=== PATIENT | male | born 1975 | race Caucasian/White ===

== ENCOUNTER 2016-10-17 10:03 | Emergency (ER) | payer OTHER ==
[~2016-10-17 10:03] MED LIST: /ESOM40CA OR; ALBU17IN INH; ALBU17IN2 IN; ALBU17IN2 INH; AMBI10TA PO; AMBI5TAB PO; AMMO12CR4 EX; BENZ200C44 PO; BUPR100T3 PO; BUPR15TA PO; CELE40TA PO; CITA20TA2 PO; CLON1TAB PO; EFFE37.527 PO; ERGO5000 PO; IBUP-1114 PO; IBUP80TA PO; KLON0.5T PO; KLON1TAB OR; KLON1TAB PO; KRIS20PA4 PO; LAMI25TA PO; MAGNSOL2 PO; MINI1CAP PO; MINIPRESS PO; MIRT30TA3 PO; MUCI600T34 PO; OMEP40CA2 PO; OXYC1TAB16 PO; OXYC1TAB23 PO; PERM5CR TOP; POLYETHYLENE GLYCOL PO; PRAZ2CAP PO; PRED20TA PO; PRIL20CA PO; PROC2.5C PR; REME30TA PO; RISP4TAB33 PO; SENN8.6C PO; SERT-141 PO; TOPA25TA PO; TOPA25TA10 PO; TRAM50TA2 PO; TRAZ50TA4 PO; TRIL300S PO; ULTR50TA PO; VALI5TAB PO; VIST25CA PO; VITA200028 PO; WELL100T PO; ZOLO100T PO; ZOLO50TA PO; ZYPR5TAB PO; ZYPR5TAB2 PO; ZYRT10TA2 PO; [UNRECOGNIZED DRUG - CODE] PO
[2016-10-17] MEDS ORDERED: GI COCKTAIL 50ML BTL(HYOSCYAMINE/MAALOX/LIDOCAINE VISCOUS)(1:3:1) As Ordered ONE (10:49)
[2016-10-17] MEDS ORDERED: diphenhydrAMINE INJ 50MG/ML VIAL (J1200) As Ordered ONE (10:50)
[2016-10-17] MEDS ORDERED: ONDANSETRON 4MG/2ML VIAL (J2405) As Ordered ONE (10:50)
[2016-10-17 11:07] LABS: BASO % 0.7 % (0.0-1.0); EOS # 0.2 K/mm3 (0.0-0.50); EOS % 3.3 % (0.0-3.0); LARGE UNSTAINED CELL # 0.1 K/mm3 (0.0-0.4); LARGE UNSTAINED CELL % 1.5 % (0.0-4.0); LYMPH # 1.1 K/mm3 (1.5-4.5); MEAN CORPUSCULAR HEMOGLOBIN 31.4 pg (27.0-33.0); MEAN CORPUSCULAR HGB CONC 35.6 g/dl (32.0-36.5); MEAN CORPUSCULAR VOLUME 88.2 fl (80.0-96.0); MONO # 0.4 K/mm3 (0.0-0.8); MONO % 5.7 % (0.0-5.0); NEUTROPHILS # 4.9 K/mm3 (1.8-7.7); NEUTROPHILS % 72.8 % (36.0-66.0); PLATELET COUNT, AUTOMATED 181 k/mm3 (150-450); RED CELL DISTRIBUTION WIDTH 12.8 % (11.5-14.5); WHITE BLOOD COUNT 6.7 K/mm3 (4.0-10.0)
--- NOTE | 2016-10-17 11:20 | REP ---
ABDOMEN, FLAT AND UPRIGHT, PA CHEST, THREE VIEWS: HISTORY: Abdominal pain. Air is present in small and large intestine. There are no air fluid levels or dilated loops of intestine. There is no pneumoperitoneum. The lungs are clear. IMPRESSION: Nonspecific bowel gas pattern. Signed by Raj Allison MD 10/17/2016 11:27 A
[2016-10-17 11:30] LABS: ALBUMIN 3.9 GM/DL (3.2-5.2); ALBUMIN/GLOBULIN RATIO 1.03 (1.00-1.93); ALKALINE PHOSPHATASE 96 U/L (45-117); ALT/SGPT 43 U/L (12-78); ANION GAP 10 MEQ/L (8-16); AST/SGOT 30 U/L (15-37); BILIRUBIN,DIRECT 0.2 MG/DL (0.0-0.2); BILIRUBIN,TOTAL 0.5 MG/DL (0.2-1.0); BLOOD UREA NITROGEN 16 MG/DL (7-18); CALCIUM LEVEL 9.1 MG/DL (8.5-10.1); CARBON DIOXIDE LEVEL 25 MEQ/L (21-32); CHLORIDE LEVEL 104 MEQ/L (98-107); CREATININE FOR GFR 1.07 MG/DL (0.70-1.30); GLOMERULAR FILTRATION RATE > 60.0 (>60); GLUCOSE, FASTING 148 MG/DL (70-105); POTASSIUM SERUM 4.1 MEQ/L (3.5-5.1); SODIUM LEVEL 139 MEQ/L (136-145); TOTAL PROTEIN 7.7 GM/DL (6.4-8.2)
--- NOTE | 2016-10-17 12:13 | EDDOCDS ---
Nurse's Notes [facility] Name: Link Goncalves Age: 41 yrs Sex: Male : 1975 Arrival Date: 10/17/2016 Time: 10:03 Bed I5 / M5 Private MD: Steven Veloz Diagnosis: Alcoholic gastritis Presentation: 10/17 10:10 Presenting complaint: Patient states: began drinking alcohol heavily for last 1 1/2 kr3 weeks. Had been sober ' for a long time'. Adult Sepsis Screening: The patient does not have new or worsening altered mentation. Patient's respiratory rate is less than 22. Systolic blood pressure is greater than 100. Patient has a qSOFA score of 0- Negative Sepsis Screen. Suicide/Homicide risk assessment- the patient denies having any suicidal and/or homicidal ideations and does not present with any other emotional, behavioral or mental health complaints. Status: Patient is not a food service attendant or dependent. Transition of care: patient was not received from another setting of care. 10:10 Acuity: SIMÓN Level 3 kr3 10:10 Method Of Arrival: Walkin/Carried/Asstd kr3 Triage Assessment: 10:12 General: Appears uncomfortable, Behavior is appropriate for age, cooperative. Pain: kr3 Location: abdomen Pain currently is 7 out of 10 on a pain scale. HIV screening NA for this visit Offered previously. GI: Reports nausea, vomiting, intolerance of food, intolerance of fluids. Derm: Skin is normal. Historical: - Allergies: Amoxicillin (Hives); Aspirin (Vomit); BACLOFEN (SOB); Coconut (Anaphylaxis); Erythromycin (Upset stomach); Latex (Hives); muscle relaxers (bad reaction); PENICILLINS (Rash); Strawberries (Hives); - Home Meds: 1. albuterol sulfate 90 mcg/actuation Inhl HFAA 1 puff every 6 hours as needed 2. Klonopin 0.5 mg Oral tab 1 tab 2 times per day has run out 3. Remeron Oral Unknown once daily ran out 4. Zoloft 100 mg Oral tab 1 tab once daily (Last dose: 10/17/2016) 5. Ambien Unknown Oral as needed (Last dose: 10/17/2016) 6. omeprazole 40 mg Oral cpDR 1 cap once daily (Last dose: 10/17/2016) - PMHx: Anxiety; bilateral leg fractures; Bipolar disorder; Chronic Back pain; Degenerative disc disease; Depression; Epilepsy; GERD; Hepatitis C; Irritable bowel syndrome; OCD; PTSD; right rib fractures; right wrist fracture; sternal fracture; TBI; - PSHx: back surgery; - Social history: Smoking status: Patient uses tobacco products, current every day smoker. Patient uses alcohol binge drinking for last 1 1/2 weeks. No barriers to communication noted, The patient speaks fluent Mongolian, Speaks appropriately for age. - Family history: Not pertinent. - : The pt / caregiver states he / she is not on anticoagulants. Home medication list is obtained from the patient. - Exposure Risk Screening:: None identified. Screenin:06 Infection Control. dem1 11:28 Screening information is obtained from the patient. Fall risk: No risks identified. ttb Assistance ADL's: requires no assistance with activities of daily living. Abuse/DV Screen: The patient / caregiver reports he/she is: not in a situation that causes fear, pain or injury. Nutritional screening: No deficits noted. Advance Directives: Currently, there is no health care proxy. home support is adequate. Assessment: 11:28 General: Appears in no apparent distress, well nourished, well groomed, Behavior is ttb appropriate for age, cooperative, pleasant, quiet. Pain: Location: generalized abd, bilat flanks. Neurological: Level of Consciousness is awake, alert. Cardiovascular: Heart tones S1 S2 present Chest pain is denied. Respiratory: No deficits noted. Airway is patent Respiratory effort is even, unlabored, Denies cough, shortness of breath. GI: Abdomen is obese, Bowel sounds hyperactive in right lower quadrant Abd is soft Abd is tender to palpation X 4 quads. Derm: Skin is normal, dry mucous membranes in nose, face dry, flaky. Injury Description: No known injury. 11:30 Adult Sepsis Screening: The patient does not have new or worsening altered mentation. ttb Patient's respiratory rate is less than 22. Systolic blood pressure is greater than 100. Patient has a qSOFA score of 0- Negative Sepsis Screen. 11:30 General: Appears in no apparent distress. Neurological: Level of Consciousness is ttb awake, alert. Cardiovascular: Chest pain is denied. Respiratory: No deficits noted. Airway is patent. 11:50 Reassessment: Patient appears in no apparent distress at this time. Patient states ttb feeling better. Patient states symptoms have improved. pt states he feels better and is ready for DC.. Vital Signs: 10:06 BP 159 / 93; Pulse 145; Resp 18; Temp 97.4; Pulse Ox 96% on R/A; Weight 106.14 kg (M); dem1 Height 5 ft. 8 in. (172.72 cm) (R); Pain 7/10; 11:23 BP 112 / 78; Pulse 104; Resp 18; Temp 97.2; Pulse Ox 94% on R/A; Pain 8/10; rn1 10:06 Body Mass Index 35.58 (106.14 kg, 172.72 cm) dem1 Vitals: 10:06 Log In Time: October 17, 2016 at 10:06. RN notified that patient meets Red Flag dem1 criteria. ED Course: 10:05 Patient visited by Rishabh Goss. dem1 10:05 Patient moved to Waiting dem1 10:06 Steven Veloz is Private Physician. dem1 10:10 Patient moved to Pre RCE dem1 10:10 Triage Initiated kr3 10:20 Patient moved to Triage 3 dsf 10:27 [facility] cc10 10:27 Akosua Lozoya MD is Attending Physician. cc10 10:27 Patient visited by Sergey Marshall PA-C. cc10 10:27 Patient visited by Sergey Marshall PA-C. cc10 10:41 Patient moved to PD2 / 27 dsf 11:01 Basic Metabolic Profile Sent. dsf 11:01 CBC with Diff Sent. dsf 11:02 Lipase Sent. dsf 11:02 Liver Profile Sent. dsf 11:02 Urinalysis Sent. dsf 11:02 Inserted saline lock: 18 gauge in left antecubital area The patient tolerated the dsf procedure well. 11:03 Patient moved to I5 / M5 dsf 11:19 [facility] [place] was scanned into [employer] and attached to record. mm15 11:28 The patient / caregiver is instructed regarding the plan of care and ED course. Patient ttb has correct armband on for positive identification. 11:28 No procedures done that require assistance. Labs drawn. (by ED staff). Urine collected. ttb Clean catch specimen. 11:30 Discontinued IV lock intact, bleeding controlled, pressure dressing applied, No ttb redness/swelling at site. 11:32 Patient visited by Alexa Wesley RN. ttb 11:51 Abdomen, Flat\E\Upright,PA Chest Returned. EDMS 12:01 Patient visited by Alexa Wesley RN. ttb 12:03 Steven Veloz is Referral Physician. cc10 Administered Medications: 11:01 Drug: diphenhydrAMINE 25 mg [diphenhydramine 50 mg/mL injection solution (0.5 mL)] dsf Route: IVP; Site: left antecubital; 12:12 Follow up: Response: No Adverse Reaction ttb 11:01 Drug: GI Cocktail - (Alum-Mag Hydroxide-Simeth Suspension 225 mg-200 mg-25 mg/5 mL 30 dsf ml, Lidocaine Liquid 2 % 10 ml, Hyoscyamine Liquid 10 ml) Route: PO; 11:02 Drug: NS 0.9% 1000 ml [sodium chloride 0.9 % injection solution] Route: IV; Rate: dsf bolus; Site: left antecubital; 12:12 Follow up: Response: No Adverse Reaction; IV Status: Completed infusion; IV Intake: ttb 1000ml 11:02 Drug: Ondansetron 4 mg [ondansetron HCl 2 mg/mL intravenous solution (2 mL)] Route: dsf IVP; Site: left antecubital; 11:50 Follow up: Response: Nausea is decreased; No Adverse Reaction ttb Intake: 12:12 IV: 1000.00ml; Total: 1000.00ml. ttb Order Results: Lab Order: Basic Metabolic Profile; SPEC'M 10/17/16 10:41 Test: GLUCOSE, FASTING; Value: 148; Range: 70-105; Abnormal: Above high normal; Units: MG/DL; Status: F Test: BLOOD UREA NITROGEN; Value: 16; Range: 7-18; Units: MG/DL; Status: F Test: CREATININE FOR GFR; Value: 1.07; Range: 0.70-1.30; Units: MG/DL; Status: F Test: GLOMERULAR FILTRATION RATE; Value: > 60.0; Range: >60; Status: F Test: SODIUM LEVEL; Value: 139; Range: 136-145; Units: MEQ/L; Status: F Test: POTASSIUM SERUM; Value: 4.1; Range: 3.5-5.1; Units: MEQ/L; Status: F Test: CHLORIDE LEVEL; Value: 104; Range: 98-107; Units: MEQ/L; Status: F Test: CARBON DIOXIDE LEVEL; Value: 25; Range: 21-32; Units: MEQ/L; Status: F Test: ANION GAP; Value: 10; Range: 8-16; Units: MEQ/L; Status: F Test: CALCIUM LEVEL; Value: 9.1; Range: 8.5-10.1; Units: MG/DL; Status: F Test Note: ; Units are mL/min/1.73 m2 Chronic Kidney Disease Staging per NKF: Stage I & II GFR >=60 Normal to Mildly Decreased Stage III GFR 30-59 Moderately Decreased Stage IV GFR 15-29 Severely Decreased Stage V GFR <15 Very Little GFR Left ESRD GFR <15 on OPTICAL LENS MANUFACTURING TECH Lab Order: CBC with Diff; SPEC'M 10/17/16 10:41 Test: WHITE BLOOD COUNT; Value: 6.7; Range: 4.0-10.0; Units: K/mm3; Status: F Test: RED BLOOD COUNT; Value: 5.97; Range: 4.30-6.10; Units: M/mm3; Status: F Test: HEMOGLOBIN; Value: 18.7; Range: 14.0-18.0; Abnormal: Above high normal; Units: g/dl; Status: F Test: HEMATOCRIT; Value: 52.7; Range: 42.0-52.0; Abnormal: Above high normal; Units: %; Status: F Test: MEAN CORPUSCULAR VOLUME; Value: 88.2; Range: 80.0-96.0; Units: fl; Status: F Test: MEAN CORPUSCULAR HEMOGLOBIN; Value: 31.4; Range: 27.0-33.0; Units: pg; Status: F Test: MEAN CORPUSCULAR HGB CONC; Value: 35.6; Range: 32.0-36.5; Units: g/dl; Status: F Test: RED CELL DISTRIBUTION WIDTH; Value: 12.8; Range: 11.5-14.5; Units: %; Status: F Test: PLATELET COUNT, AUTOMATED; Value: 181; Range: 150-450; Units: k/mm3; Status: F Test: NEUTROPHILS %; Value: 72.8; Range: 36.0-66.0; Abnormal: Above high normal; Units: %; Status: F Test: LYMPH %; Value: 16.0; Range: 24.0-44.0; Abnormal: Below low normal; Units: %; Status: F Test: MONO %; Value: 5.7; Range: 0.0-5.0; Abnormal: Above high normal; Units: %; Status: F Test: EOS %; Value: 3.3; Range: 0.0-3.0; Abnormal: Above high normal; Units: %; Status: F Test: BASO %; Value: 0.7; Range: 0.0-1.0; Units: %; Status: F Test: LARGE UNSTAINED CELL %; Value: 1.5; Range: 0.0-4.0; Units: %; Status: F Test: NEUTROPHILS #; Value: 4.9; Range: 1.8-7.7; Units: K/mm3; Status: F Test: LYMPH #; Value: 1.1; Range: 1.5-4.5; Abnormal: Below low normal; Units: K/mm3; Status: F Test: MONO #; Value: 0.4; Range: 0.0-0.8; Units: K/mm3; Status: F Test: EOS #; Value: 0.2; Range: 0.0-0.50; Units: K/mm3; Status: F Test: BASO #; Value: 0.0; Range: 0.0-0.2; Units: K/mm3; Status: F Test: LARGE UNSTAINED CELL #; Value: 0.1; Range: 0.0-0.4; Units: K/mm3; Status: F Lab Order: Lipase; SPEC'M 10/17/16 10:41 Test: LIPASE; Value: 183; Range: 73-393; Units: U/L; Status: F Lab Order: Liver Profile; SPEC'M 10/17/16 10:41 Test: AST/SGOT; Value: 30; Range: 15-37; Units: U/L; Status: F Test: ALT/SGPT; Value: 43; Range: 12-78; Units: U/L; Status: F Test: ALKALINE PHOSPHATASE; Value: 96; Range: 45-117; Units: U/L; Status: F Test: BILIRUBIN,TOTAL; Value: 0.5; Range: 0.2-1.0; Units: MG/DL; Status: F Test: BILIRUBIN,DIRECT; Value: 0.2; Range: 0.0-0.2; Units: MG/DL; Status: F Test: TOTAL PROTEIN; Value: 7.7; Range: 6.4-8.2; Units: GM/DL; Status: F Test: ALBUMIN; Value: 3.9; Range: 3.2-5.2; Units: GM/DL; Status: F Test: ALBUMIN/GLOBULIN RATIO; Value: 1.03; Range: 1.00-1.93; Status: F Lab Order: Urinalysis; SPEC'M 10/17/16 10:41 Test: APPEARANCE, URINE; Value: HAZY; Range: CLEAR; Status: F Test: COLOR, URINE; Value: SANDIP; Range: YELLOW; Status: F Test: PH,URINE; Value: 5.0; Range: 5.0-9.0; Units: UNITS; Status: F Test: SPECIFIC GRAVITY URINE AUTO; Value: 1.021; Range: 1.002-1.035; Status: F Test: PROTEIN, URINE AUTO; Value: 2+; Range: NEGATIVE; Abnormal: Above high normal; Units: mg/dL; Status: F Test: GLUCOSE, URINE (UA) AUTO; Value: NEGATIVE; Range: NEGATIVE; Units: mg/dL; Status: F Test: KETONE, URINE AUTO; Value: NEGATIVE; Range: NEGATIVE; Units: mg/dL; Status: F Test: UROBILINOGEN, URINE AUTO; Value: 2.0; Range: 0.0-2.0; Abnormal: Above high normal; Units: mg/dL; Status: F Test: BILIRUBIN, URINE AUTO; Value: NEGATIVE; Range: NEGATIVE; Status: F Test: NITRITE, URINE AUTO; Value: NEGATIVE; Range: NEGATIVE; Status: F Test: LEUKOCYTE ESTERASE, URINE AUTO; Value: NEGATIVE; Range: NEGATIVE; Status: F Test: BLOOD, URINE BLOOD; Value: NEGATIVE; Range: NEGATIVE; Status: F Test: WBC, URINE AUTO; Value: 11; Range: 0-3; Abnormal: Above high normal; Units: /HPF; Status: F Test: RBC, URINE AUTO; Value: 4; Range: 0-3; Abnormal: Above high normal; Units: /HPF; Status: F Test: BACTERIA, URINE AUTO; Value: 1+; Range: NEGATIVE; Abnormal: Above high normal; Status: F Test: SQUAMOUS EPITHELIAL CELL UR AU; Value: 0; Range: 0-6; Units: /HPF; Status: F Test: MUCUS, URINE; Value: SMALL; Range: NEGATIVE; Status: F Test: HYALINE CAST, URINE AUTO; Value: 0; Range: 0-1; Units: /LPF; Status: F Radiology Order: Abdomen, Flat\E\Upright,PA Chest Test: Abdomen, Flat\E\Upright,PA Chest REASON FOR EXAMINATION: Abdomen Pain; ABDOMEN, FLAT AND UPRIGHT, PA CHEST, THREE VIEWS:; ; HISTORY: Abdominal pain.; ; Air is present in small and large intestine. There are no air fluid levels or; dilated loops of intestine. There is no pneumoperitoneum. The lungs are clear.; ; ; IMPRESSION:; ; Nonspecific bowel gas pattern.; ; ; Signed by; Raj Allison MD 10/17/2016 11:27 A; Outcome: 11:30 Discharge Assessment: Patient awake, alert and oriented x 3. No cognitive and/or ttb functional deficits noted. Patient verbalized understanding of disposition instructions. Patient awake and alert. patient administered narcotics - no. The following High Risk Discharge criteria are identified: None. Discharged to home ambulatory. Condition: good Condition: stable Condition: improved. Discharge instructions given to patient, Instructed on discharge instructions, follow up and referral plans. medication usage, diet, Demonstrated understanding of instructions, medications, refrain from acidic foods, ETOH Pt was receptive of discharge instructions/ teaching. Prescriptions given X 1. No special radiology studies were completed. Property :Personal belongings accompany Pt. 12:04 Discharge ordered by Provider. cc10 12:13 Patient left the ED. ttb Signatures: Dispatcher [employer] EDMS Dolly El,RN RN byron3 Dione PayneRN RN arpitf Rishabh Goss Teresa, RN RN ttb Carolann Chaudhary mm15 Sergey Marshall, PA-C PA-C cc10 Navneet Zuluaga rn1 Corrections: (The following items were deleted from the chart) 12:12 11:28 CT Study completed. ttb ttb MTDD
--- NOTE | 2016-10-17 12:13 | EDDOCDS ---
Physician Documentation [facility] Name: Link Goncalves Age: 41 yrs Sex: Male : 1975 Arrival Date: 10/17/2016 Time: 10:03 Bed I5 / M5 Private MD: Steven Veloz Disposition: 10/17/16 12:04 Discharged to Home/Self Care. Impression: Alcoholic gastritis. - Condition is Stable. - Discharge Instructions: Gastritis, Adult. - Prescriptions for Carafate 1 gram Oral Tablet - take 1 tablet by ORAL route 4 times per day take on an empty stomach, beginning on waking and last dose at bedtime; 100 tablet. - Medication Reconciliation, Local Pharmacy Hours form. - Follow up: Emergency Department; When: As needed; Reason: Worsening of conditions. Follow up: Steven Veloz; When: Call to arrange an appointment; Reason: Wound/Symptom Recheck, Recheck today's complaints, Worsening of conditions, Continuance of care. - Problem is an acute exacerbation. - Symptoms have improved. - Notes: Follow up with your regular doctor for refill of your medications. thanks. Historical: - Allergies: Amoxicillin (Hives); Aspirin (Vomit); BACLOFEN (SOB); Coconut (Anaphylaxis); Erythromycin (Upset stomach); Latex (Hives); muscle relaxers (bad reaction); PENICILLINS (Rash); Strawberries (Hives); - Home Meds: 1. albuterol sulfate 90 mcg/actuation Inhl HFAA 1 puff every 6 hours as needed 2. Klonopin 0.5 mg Oral tab 1 tab 2 times per day has run out 3. Remeron Oral Unknown once daily ran out 4. Zoloft 100 mg Oral tab 1 tab once daily (Last dose: 10/17/2016) 5. Ambien Unknown Oral as needed (Last dose: 10/17/2016) 6. omeprazole 40 mg Oral cpDR 1 cap once daily (Last dose: 10/17/2016) - PMHx: Anxiety; bilateral leg fractures; Bipolar disorder; Chronic Back pain; Degenerative disc disease; Depression; Epilepsy; GERD; Hepatitis C; Irritable bowel syndrome; OCD; PTSD; right rib fractures; right wrist fracture; sternal fracture; TBI; - PSHx: back surgery; - Social history: Smoking status: Patient uses tobacco products, current every day smoker. Patient uses alcohol binge drinking for last 1 1/2 weeks. No barriers to communication noted, The patient speaks fluent Indonesian, Speaks appropriately for age. - Family history: Not pertinent. - : The pt / caregiver states he / she is not on anticoagulants. Home medication list is obtained from the patient. - Exposure Risk Screening:: None identified. Vital Signs: 10/17 10:06 BP 159 / 93; Pulse 145; Resp 18; Temp 97.4; Pulse Ox 96% on R/A; Weight 106.14 kg / 234 dem1 lbs (M); Height 5 ft. 8 in. (172.72 cm) (R); Pain 7/10; 11:23 BP 112 / 78; Pulse 104; Resp 18; Temp 97.2; Pulse Ox 94% on R/A; Pain 8/10; rn1 10:06 Body Mass Index 35.58 (106.14 kg, 172.72 cm) dem1 MDM: 10:31 NS 0.9% 1000 ml IV at bolus once ordered. cc10 10:32 Ondansetron 4 mg IVP once ordered. cc10 10:32 IV Saline Lock ordered. cc10 10:32 Undress patient appropriately for examination ordered. cc10 10:32 diphenhydrAMINE 25 mg IVP once ordered. cc10 10:32 GI Cocktail - (Alum-Mag Hydroxide-Simeth 30 ml, Lidocaine 10 ml, Hyoscyamine 10 ml) PO cc10 once; Pre-mixed 50mL unit dose ordered. 10:32 Basic Metabolic Profile Ordered. EDMS 10:32 CBC with Diff Ordered. EDMS 10:32 Lipase Ordered. EDMS 10:32 Liver Profile Ordered. EDMS 10:32 Urinalysis Ordered. EDMS 10:33 Abdomen, Flat\E\Upright,PA Chest Ordered. EDMS 10:33 NOTHING BY MOUTH+DIET ordered. EDMS 11:14 Financial registration complete. mm15 11:19 [facility] [place] was scanned into [employer] and attached to record. mm15 11:54 Basic Metabolic Profile Reviewed. cc10 11:54 CBC with Diff Reviewed. cc10 11:54 Urinalysis Reviewed. cc10 11:54 Lipase Reviewed. cc10 11:54 Liver Profile Reviewed. cc10 11:54 Abdomen, Flat\E\Upright,PA Chest Reviewed. cc10 11:56 Vital Signs ordered. cc10 Administered Medications: 11:01 Drug: diphenhydrAMINE 25 mg [diphenhydramine 50 mg/mL injection solution (0.5 mL)] dsf Route: IVP; Site: left antecubital; 12:12 Follow up: Response: No Adverse Reaction ttb 11:01 Drug: GI Cocktail - (Alum-Mag Hydroxide-Simeth Suspension 225 mg-200 mg-25 mg/5 mL 30 dsf ml, Lidocaine Liquid 2 % 10 ml, Hyoscyamine Liquid 10 ml) Route: PO; 11:02 Drug: NS 0.9% 1000 ml [sodium chloride 0.9 % injection solution] Route: IV; Rate: dsf bolus; Site: left antecubital; 12:12 Follow up: Response: No Adverse Reaction; IV Status: Completed infusion; IV Intake: ttb 1000ml 11:02 Drug: Ondansetron 4 mg [ondansetron HCl 2 mg/mL intravenous solution (2 mL)] Route: dsf IVP; Site: left antecubital; 11:50 Follow up: Response: Nausea is decreased; No Adverse Reaction ttb Signatures: Dispatcher [employer] EDMS Dolly ElRN RN kr3 Alexa Wesley RN RN ttb Carolann Chaudhary mm15 Sergey Marshall PA-C PA-C cc10 Dione Payne RN dsf The chart was reviewed and I authenticate all verbal orders and agree with the evaluation and treatment provided.Attachments: 11:19 [facility] Payment Agreement mm15 MTDD
--- NOTE | 2016-10-19 13:14 | EDDOCDS ---
Nurse's Notes [facility] Name: Link Goncalves Age: 41 yrs Sex: Male : 1975 Arrival Date: 10/17/2016 Time: 10:03 Bed I5 / M5 Private MD: Steven Veloz Diagnosis: Alcoholic gastritis Presentation: 10/17 10:10 Presenting complaint: Patient states: began drinking alcohol heavily for last 1 1/2 kr3 weeks. Had been sober ' for a long time'. Adult Sepsis Screening: The patient does not have new or worsening altered mentation. Patient's respiratory rate is less than 22. Systolic blood pressure is greater than 100. Patient has a qSOFA score of 0- Negative Sepsis Screen. Suicide/Homicide risk assessment- the patient denies having any suicidal and/or homicidal ideations and does not present with any other emotional, behavioral or mental health complaints. Status: Patient is not a career services assistant or dependent. Transition of care: patient was not received from another setting of care. 10:10 Acuity: SIMÓN Level 3 kr3 10:10 Method Of Arrival: Walkin/Carried/Asstd kr3 Triage Assessment: 10:12 General: Appears uncomfortable, Behavior is appropriate for age, cooperative. Pain: kr3 Location: abdomen Pain currently is 7 out of 10 on a pain scale. HIV screening NA for this visit Offered previously. GI: Reports nausea, vomiting, intolerance of food, intolerance of fluids. Derm: Skin is normal. Historical: - Allergies: Amoxicillin (Hives); Aspirin (Vomit); BACLOFEN (SOB); Coconut (Anaphylaxis); Erythromycin (Upset stomach); Latex (Hives); muscle relaxers (bad reaction); PENICILLINS (Rash); Strawberries (Hives); - Home Meds: 1. albuterol sulfate 90 mcg/actuation Inhl HFAA 1 puff every 6 hours as needed 2. Klonopin 0.5 mg Oral tab 1 tab 2 times per day has run out 3. Remeron Oral Unknown once daily ran out 4. Zoloft 100 mg Oral tab 1 tab once daily (Last dose: 10/17/2016) 5. Ambien Unknown Oral as needed (Last dose: 10/17/2016) 6. omeprazole 40 mg Oral cpDR 1 cap once daily (Last dose: 10/17/2016) - PMHx: Anxiety; bilateral leg fractures; Bipolar disorder; Chronic Back pain; Degenerative disc disease; Depression; Epilepsy; GERD; Hepatitis C; Irritable bowel syndrome; OCD; PTSD; right rib fractures; right wrist fracture; sternal fracture; TBI; - PSHx: back surgery; - Social history: Smoking status: Patient uses tobacco products, current every day smoker. Patient uses alcohol binge drinking for last 1 1/2 weeks. No barriers to communication noted, The patient speaks fluent Latvian, Speaks appropriately for age. - Family history: Not pertinent. - : The pt / caregiver states he / she is not on anticoagulants. Home medication list is obtained from the patient. - Exposure Risk Screening:: None identified. Screenin:06 Infection Control. dem1 11:28 Screening information is obtained from the patient. Fall risk: No risks identified. ttb Assistance ADL's: requires no assistance with activities of daily living. Abuse/DV Screen: The patient / caregiver reports he/she is: not in a situation that causes fear, pain or injury. Nutritional screening: No deficits noted. Advance Directives: Currently, there is no health care proxy. home support is adequate. Assessment: 11:28 General: Appears in no apparent distress, well nourished, well groomed, Behavior is ttb appropriate for age, cooperative, pleasant, quiet. Pain: Location: generalized abd, bilat flanks. Neurological: Level of Consciousness is awake, alert. Cardiovascular: Heart tones S1 S2 present Chest pain is denied. Respiratory: No deficits noted. Airway is patent Respiratory effort is even, unlabored, Denies cough, shortness of breath. GI: Abdomen is obese, Bowel sounds hyperactive in right lower quadrant Abd is soft Abd is tender to palpation X 4 quads. Derm: Skin is normal, dry mucous membranes in nose, face dry, flaky. Injury Description: No known injury. 11:30 Adult Sepsis Screening: The patient does not have new or worsening altered mentation. ttb Patient's respiratory rate is less than 22. Systolic blood pressure is greater than 100. Patient has a qSOFA score of 0- Negative Sepsis Screen. 11:30 General: Appears in no apparent distress. Neurological: Level of Consciousness is ttb awake, alert. Cardiovascular: Chest pain is denied. Respiratory: No deficits noted. Airway is patent. 11:50 Reassessment: Patient appears in no apparent distress at this time. Patient states ttb feeling better. Patient states symptoms have improved. pt states he feels better and is ready for DC.. Vital Signs: 10:06 BP 159 / 93; Pulse 145; Resp 18; Temp 97.4; Pulse Ox 96% on R/A; Weight 106.14 kg (M); dem1 Height 5 ft. 8 in. (172.72 cm) (R); Pain 7/10; 11:23 BP 112 / 78; Pulse 104; Resp 18; Temp 97.2; Pulse Ox 94% on R/A; Pain 8/10; rn1 10:06 Body Mass Index 35.58 (106.14 kg, 172.72 cm) dem1 Vitals: 10:06 Log In Time: October 17, 2016 at 10:06. RN notified that patient meets Red Flag dem1 criteria. ED Course: 10:05 Patient visited by Rishabh Goss. dem1 10:05 Patient moved to Waiting dem1 10:06 Steven Veloz is Private Physician. dem1 10:10 Patient moved to Pre RCE dem1 10:10 Triage Initiated kr3 10:20 Patient moved to Triage 3 dsf 10:27 Sergey Marshall PA-C [facility]. cc10 10:27 Akosua Lozoya MD is Attending Physician. cc10 10:27 Patient visited by Sergey Marshall PA-C. cc10 10:27 Patient visited by Sergey Marshall PA-C. cc10 10:41 Patient moved to PD2 / 27 dsf 11:01 Basic Metabolic Profile Sent. dsf 11:01 CBC with Diff Sent. dsf 11:02 Lipase Sent. dsf 11:02 Liver Profile Sent. dsf 11:02 Urinalysis Sent. dsf 11:02 Inserted saline lock: 18 gauge in left antecubital area The patient tolerated the dsf procedure well. 11:03 Patient moved to I5 / M5 dsf 11:19 [place] [place] was scanned into [employer] and attached to record. mm15 11:28 The patient / caregiver is instructed regarding the plan of care and ED course. Patient ttb has correct armband on for positive identification. 11:28 No procedures done that require assistance. Labs drawn. (by ED staff). Urine collected. ttb Clean catch specimen. 11:30 Discontinued IV lock intact, bleeding controlled, pressure dressing applied, No ttb redness/swelling at site. 11:32 Patient visited by Alexa Wesley RN. ttb 11:51 Abdomen, Flat\E\Upright,PA Chest Returned. EDMS 12:01 Patient visited by Alexa Wesley RN. ttb 12:03 Steven Veloz is Referral Physician. cc10 10/18 06:50 T-Sheet-- Draft Copy was scanned into [employer] and attached to record. gb Administered Medications: 10/17 11:01 Drug: diphenhydrAMINE 25 mg [diphenhydramine 50 mg/mL injection solution (0.5 mL)] dsf Route: IVP; Site: left antecubital; 12:12 Follow up: Response: No Adverse Reaction ttb 11:01 Drug: GI Cocktail - (Alum-Mag Hydroxide-Simeth Suspension 225 mg-200 mg-25 mg/5 mL 30 dsf ml, Lidocaine Liquid 2 % 10 ml, Hyoscyamine Liquid 10 ml) Route: PO; 11:02 Drug: NS 0.9% 1000 ml [sodium chloride 0.9 % injection solution] Route: IV; Rate: dsf bolus; Site: left antecubital; 12:12 Follow up: Response: No Adverse Reaction; IV Status: Completed infusion; IV Intake: ttb 1000ml 11:02 Drug: Ondansetron 4 mg [ondansetron HCl 2 mg/mL intravenous solution (2 mL)] Route: dsf IVP; Site: left antecubital; 11:50 Follow up: Response: Nausea is decreased; No Adverse Reaction ttb Intake: 12:12 IV: 1000.00ml; Total: 1000.00ml. ttb Order Results: Lab Order: Basic Metabolic Profile; SPEC'M 10/17/16 10:41 Test: GLUCOSE, FASTING; Value: 148; Range: 70-105; Abnormal: Above high normal; Units: MG/DL; Status: F Test: BLOOD UREA NITROGEN; Value: 16; Range: 7-18; Units: MG/DL; Status: F Test: CREATININE FOR GFR; Value: 1.07; Range: 0.70-1.30; Units: MG/DL; Status: F Test: GLOMERULAR FILTRATION RATE; Value: > 60.0; Range: >60; Status: F Test: SODIUM LEVEL; Value: 139; Range: 136-145; Units: MEQ/L; Status: F Test: POTASSIUM SERUM; Value: 4.1; Range: 3.5-5.1; Units: MEQ/L; Status: F Test: CHLORIDE LEVEL; Value: 104; Range: 98-107; Units: MEQ/L; Status: F Test: CARBON DIOXIDE LEVEL; Value: 25; Range: 21-32; Units: MEQ/L; Status: F Test: ANION GAP; Value: 10; Range: 8-16; Units: MEQ/L; Status: F Test: CALCIUM LEVEL; Value: 9.1; Range: 8.5-10.1; Units: MG/DL; Status: F Test Note: ; Units are mL/min/1.73 m2 Chronic Kidney Disease Staging per NKF: Stage I & II GFR >=60 Normal to Mildly Decreased Stage III GFR 30-59 Moderately Decreased Stage IV GFR 15-29 Severely Decreased Stage V GFR <15 Very Little GFR Left ESRD GFR <15 on [facility] Lab Order: CBC with Diff; SPEC'M 10/17/16 10:41 Test: WHITE BLOOD COUNT; Value: 6.7; Range: 4.0-10.0; Units: K/mm3; Status: F Test: RED BLOOD COUNT; Value: 5.97; Range: 4.30-6.10; Units: M/mm3; Status: F Test: HEMOGLOBIN; Value: 18.7; Range: 14.0-18.0; Abnormal: Above high normal; Units: g/dl; Status: F Test: HEMATOCRIT; Value: 52.7; Range: 42.0-52.0; Abnormal: Above high normal; Units: %; Status: F Test: MEAN CORPUSCULAR VOLUME; Value: 88.2; Range: 80.0-96.0; Units: fl; Status: F Test: MEAN CORPUSCULAR HEMOGLOBIN; Value: 31.4; Range: 27.0-33.0; Units: pg; Status: F Test: MEAN CORPUSCULAR HGB CONC; Value: 35.6; Range: 32.0-36.5; Units: g/dl; Status: F Test: RED CELL DISTRIBUTION WIDTH; Value: 12.8; Range: 11.5-14.5; Units: %; Status: F Test: PLATELET COUNT, AUTOMATED; Value: 181; Range: 150-450; Units: k/mm3; Status: F Test: NEUTROPHILS %; Value: 72.8; Range: 36.0-66.0; Abnormal: Above high normal; Units: %; Status: F Test: LYMPH %; Value: 16.0; Range: 24.0-44.0; Abnormal: Below low normal; Units: %; Status: F Test: MONO %; Value: 5.7; Range: 0.0-5.0; Abnormal: Above high normal; Units: %; Status: F Test: EOS %; Value: 3.3; Range: 0.0-3.0; Abnormal: Above high normal; Units: %; Status: F Test: BASO %; Value: 0.7; Range: 0.0-1.0; Units: %; Status: F Test: LARGE UNSTAINED CELL %; Value: 1.5; Range: 0.0-4.0; Units: %; Status: F Test: NEUTROPHILS #; Value: 4.9; Range: 1.8-7.7; Units: K/mm3; Status: F Test: LYMPH #; Value: 1.1; Range: 1.5-4.5; Abnormal: Below low normal; Units: K/mm3; Status: F Test: MONO #; Value: 0.4; Range: 0.0-0.8; Units: K/mm3; Status: F Test: EOS #; Value: 0.2; Range: 0.0-0.50; Units: K/mm3; Status: F Test: BASO #; Value: 0.0; Range: 0.0-0.2; Units: K/mm3; Status: F Test: LARGE UNSTAINED CELL #; Value: 0.1; Range: 0.0-0.4; Units: K/mm3; Status: F Lab Order: Lipase; SPEC'M 10/17/16 10:41 Test: LIPASE; Value: 183; Range: 73-393; Units: U/L; Status: F Lab Order: Liver Profile; SPEC'M 10/17/16 10:41 Test: AST/SGOT; Value: 30; Range: 15-37; Units: U/L; Status: F Test: ALT/SGPT; Value: 43; Range: 12-78; Units: U/L; Status: F Test: ALKALINE PHOSPHATASE; Value: 96; Range: 45-117; Units: U/L; Status: F Test: BILIRUBIN,TOTAL; Value: 0.5; Range: 0.2-1.0; Units: MG/DL; Status: F Test: BILIRUBIN,DIRECT; Value: 0.2; Range: 0.0-0.2; Units: MG/DL; Status: F Test: TOTAL PROTEIN; Value: 7.7; Range: 6.4-8.2; Units: GM/DL; Status: F Test: ALBUMIN; Value: 3.9; Range: 3.2-5.2; Units: GM/DL; Status: F Test: ALBUMIN/GLOBULIN RATIO; Value: 1.03; Range: 1.00-1.93; Status: F Lab Order: Urinalysis; SPEC'M 10/17/16 10:41 Test: APPEARANCE, URINE; Value: HAZY; Range: CLEAR; Status: F Test: COLOR, URINE; Value: SANDIP; Range: YELLOW; Status: F Test: PH,URINE; Value: 5.0; Range: 5.0-9.0; Units: UNITS; Status: F Test: SPECIFIC GRAVITY URINE AUTO; Value: 1.021; Range: 1.002-1.035; Status: F Test: PROTEIN, URINE AUTO; Value: 2+; Range: NEGATIVE; Abnormal: Above high normal; Units: mg/dL; Status: F Test: GLUCOSE, URINE (UA) AUTO; Value: NEGATIVE; Range: NEGATIVE; Units: mg/dL; Status: F Test: KETONE, URINE AUTO; Value: NEGATIVE; Range: NEGATIVE; Units: mg/dL; Status: F Test: UROBILINOGEN, URINE AUTO; Value: 2.0; Range: 0.0-2.0; Abnormal: Above high normal; Units: mg/dL; Status: F Test: BILIRUBIN, URINE AUTO; Value: NEGATIVE; Range: NEGATIVE; Status: F Test: NITRITE, URINE AUTO; Value: NEGATIVE; Range: NEGATIVE; Status: F Test: LEUKOCYTE ESTERASE, URINE AUTO; Value: NEGATIVE; Range: NEGATIVE; Status: F Test: BLOOD, URINE BLOOD; Value: NEGATIVE; Range: NEGATIVE; Status: F Test: WBC, URINE AUTO; Value: 11; Range: 0-3; Abnormal: Above high normal; Units: /HPF; Status: F Test: RBC, URINE AUTO; Value: 4; Range: 0-3; Abnormal: Above high normal; Units: /HPF; Status: F Test: BACTERIA, URINE AUTO; Value: 1+; Range: NEGATIVE; Abnormal: Above high normal; Status: F Test: SQUAMOUS EPITHELIAL CELL UR AU; Value: 0; Range: 0-6; Units: /HPF; Status: F Test: MUCUS, URINE; Value: SMALL; Range: NEGATIVE; Status: F Test: HYALINE CAST, URINE AUTO; Value: 0; Range: 0-1; Units: /LPF; Status: F Radiology Order: Abdomen, Flat\E\Upright,PA Chest Test: Abdomen, Flat\E\Upright,PA Chest REASON FOR EXAMINATION: Abdomen Pain; ABDOMEN, FLAT AND UPRIGHT, PA CHEST, THREE VIEWS:; ; HISTORY: Abdominal pain.; ; Air is present in small and large intestine. There are no air fluid levels or; dilated loops of intestine. There is no pneumoperitoneum. The lungs are clear.; ; ; IMPRESSION:; ; Nonspecific bowel gas pattern.; ; ; Signed by; Raj Allison MD 10/17/2016 11:27 A; Outcome: 11:30 Discharge Assessment: Patient awake, alert and oriented x 3. No cognitive and/or ttb functional deficits noted. Patient verbalized understanding of disposition instructions. Patient awake and alert. patient administered narcotics - no. The following High Risk Discharge criteria are identified: None. Discharged to home ambulatory. Condition: good Condition: stable Condition: improved. Discharge instructions given to patient, Instructed on discharge instructions, follow up and referral plans. medication usage, diet, Demonstrated understanding of instructions, medications, refrain from acidic foods, ETOH Pt was receptive of discharge instructions/ teaching. Prescriptions given X 1. No special radiology studies were completed. Property :Personal belongings accompany Pt. 12:04 Discharge ordered by Provider. cc10 12:13 Patient left the ED. ttb Signatures: Dispatcher [employer] EDMS Susan Munoz, Dolly Lawrence RN RN byron3 Dione Payne RN RN Rishabh [place], RN RN ttb Carolann Chaudhary mm15 Sergey Marshall PAWillowC PA-C cc10 Navneet Zuluaga rn1 Corrections: (The following items were deleted from the chart) 12:12 11:28 CT Study completed. ttabimbola ttb Chart Complete MTDD
--- NOTE | 2016-10-19 13:14 | EDDOCDS ---
Physician Documentation [facility] Name: Link Goncalves Age: 41 yrs Sex: Male : 1975 Arrival Date: 10/17/2016 Time: 10:03 Bed I5 / M5 Private MD: Steven Veloz Disposition: 10/17/16 12:04 Discharged to Home/Self Care. Impression: Alcoholic gastritis. - Condition is Stable. - Discharge Instructions: Gastritis, Adult. - Prescriptions for Carafate 1 gram Oral Tablet - take 1 tablet by ORAL route 4 times per day take on an empty stomach, beginning on waking and last dose at bedtime; 100 tablet. - Medication Reconciliation, Local Pharmacy Hours form. - Follow up: Emergency Department; When: As needed; Reason: Worsening of conditions. Follow up: Steven Veloz; When: Call to arrange an appointment; Reason: Wound/Symptom Recheck, Recheck today's complaints, Worsening of conditions, Continuance of care. - Problem is an acute exacerbation. - Symptoms have improved. - Notes: Follow up with your regular doctor for refill of your medications. thanks. Historical: - Allergies: Amoxicillin (Hives); Aspirin (Vomit); BACLOFEN (SOB); Coconut (Anaphylaxis); Erythromycin (Upset stomach); Latex (Hives); muscle relaxers (bad reaction); PENICILLINS (Rash); Strawberries (Hives); - Home Meds: 1. albuterol sulfate 90 mcg/actuation Inhl HFAA 1 puff every 6 hours as needed 2. Klonopin 0.5 mg Oral tab 1 tab 2 times per day has run out 3. Remeron Oral Unknown once daily ran out 4. Zoloft 100 mg Oral tab 1 tab once daily (Last dose: 10/17/2016) 5. Ambien Unknown Oral as needed (Last dose: 10/17/2016) 6. omeprazole 40 mg Oral cpDR 1 cap once daily (Last dose: 10/17/2016) - PMHx: Anxiety; bilateral leg fractures; Bipolar disorder; Chronic Back pain; Degenerative disc disease; Depression; Epilepsy; GERD; Hepatitis C; Irritable bowel syndrome; OCD; PTSD; right rib fractures; right wrist fracture; sternal fracture; TBI; - PSHx: back surgery; - Social history: Smoking status: Patient uses tobacco products, current every day smoker. Patient uses alcohol binge drinking for last 1 1/2 weeks. No barriers to communication noted, The patient speaks fluent Macedonian, Speaks appropriately for age. - Family history: Not pertinent. - : The pt / caregiver states he / she is not on anticoagulants. Home medication list is obtained from the patient. - Exposure Risk Screening:: None identified. Vital Signs: 10/17 10:06 BP 159 / 93; Pulse 145; Resp 18; Temp 97.4; Pulse Ox 96% on R/A; Weight 106.14 kg / 234 dem1 lbs (M); Height 5 ft. 8 in. (172.72 cm) (R); Pain 7/10; 11:23 BP 112 / 78; Pulse 104; Resp 18; Temp 97.2; Pulse Ox 94% on R/A; Pain 8/10; rn1 10:06 Body Mass Index 35.58 (106.14 kg, 172.72 cm) dem1 MDM: 10:31 NS 0.9% 1000 ml IV at bolus once ordered. cc10 10:32 Ondansetron 4 mg IVP once ordered. cc10 10:32 IV Saline Lock ordered. cc10 10:32 Undress patient appropriately for examination ordered. cc10 10:32 diphenhydrAMINE 25 mg IVP once ordered. cc10 10:32 GI Cocktail - (Alum-Mag Hydroxide-Simeth 30 ml, Lidocaine 10 ml, Hyoscyamine 10 ml) PO cc10 once; Pre-mixed 50mL unit dose ordered. 10:32 Basic Metabolic Profile Ordered. EDMS 10:32 CBC with Diff Ordered. EDMS 10:32 Lipase Ordered. EDMS 10:32 Liver Profile Ordered. EDMS 10:32 Urinalysis Ordered. EDMS 10:33 Abdomen, Flat\E\Upright,PA Chest Ordered. EDMS 10:33 NOTHING BY MOUTH+DIET ordered. EDMS 11:14 Financial registration complete. mm15 11:19 [place] [place] Agreement was scanned into [employer] and attached to record. mm15 11:54 Basic Metabolic Profile Reviewed. cc10 11:54 CBC with Diff Reviewed. cc10 11:54 Urinalysis Reviewed. cc10 11:54 Lipase Reviewed. cc10 11:54 Liver Profile Reviewed. cc10 11:54 Abdomen, Flat\E\Upright,PA Chest Reviewed. cc10 11:56 Vital Signs ordered. cc10 10/18 06:50 T-Sheet-- Draft Copy was scanned into [employer] and attached to record. gb Administered Medications: 10/17 11:01 Drug: diphenhydrAMINE 25 mg [diphenhydramine 50 mg/mL injection solution (0.5 mL)] dsf Route: IVP; Site: left antecubital; 12:12 Follow up: Response: No Adverse Reaction ttb 11:01 Drug: GI Cocktail - (Alum-Mag Hydroxide-Simeth Suspension 225 mg-200 mg-25 mg/5 mL 30 dsf ml, Lidocaine Liquid 2 % 10 ml, Hyoscyamine Liquid 10 ml) Route: PO; 11:02 Drug: NS 0.9% 1000 ml [sodium chloride 0.9 % injection solution] Route: IV; Rate: dsf bolus; Site: left antecubital; 12:12 Follow up: Response: No Adverse Reaction; IV Status: Completed infusion; IV Intake: ttb 1000ml 11:02 Drug: Ondansetron 4 mg [ondansetron HCl 2 mg/mL intravenous solution (2 mL)] Route: dsf IVP; Site: left antecubital; 11:50 Follow up: Response: Nausea is decreased; No Adverse Reaction ttb Signatures: Dispatcher [employer] EDMS Susan Munoz Reg Reg gb Robie, Kathleen,JULIO RN kr3 Alexa Wesley RN RN ttb Carolann Chaudhary mm15 Sergey Marshall PA-C PA-C cc10 Dione Payne RN dsf The chart was reviewed and I authenticate all verbal orders and agree with the evaluation and treatment provided.Attachments: : [facility] Payment Agreement mm15 10/18 06:50 T-Sheet-- Draft Copy gb Chart Complete MTDD
--- NOTE | 2016-10-19 13:14 | EDDOCDS ---
Physician Documentation [facility] Name: Link Goncalves Age: 41 yrs Sex: Male : 1975 Arrival Date: 10/17/2016 Time: 10:03 Bed I5 / M5 Private MD: Steven Veloz Disposition: 10/17/16 12:04 Discharged to Home/Self Care. Impression: Alcoholic gastritis. - Condition is Stable. - Discharge Instructions: Gastritis, Adult. - Prescriptions for Carafate 1 gram Oral Tablet - take 1 tablet by ORAL route 4 times per day take on an empty stomach, beginning on waking and last dose at bedtime; 100 tablet. - Medication Reconciliation, Local Pharmacy Hours form. - Follow up: Emergency Department; When: As needed; Reason: Worsening of conditions. Follow up: Steven Veloz; When: Call to arrange an appointment; Reason: Wound/Symptom Recheck, Recheck today's complaints, Worsening of conditions, Continuance of care. - Problem is an acute exacerbation. - Symptoms have improved. - Notes: Follow up with your regular doctor for refill of your medications. thanks. Historical: - Allergies: Amoxicillin (Hives); Aspirin (Vomit); BACLOFEN (SOB); Coconut (Anaphylaxis); Erythromycin (Upset stomach); Latex (Hives); muscle relaxers (bad reaction); PENICILLINS (Rash); Strawberries (Hives); - Home Meds: 1. albuterol sulfate 90 mcg/actuation Inhl HFAA 1 puff every 6 hours as needed 2. Klonopin 0.5 mg Oral tab 1 tab 2 times per day has run out 3. Remeron Oral Unknown once daily ran out 4. Zoloft 100 mg Oral tab 1 tab once daily (Last dose: 10/17/2016) 5. Ambien Unknown Oral as needed (Last dose: 10/17/2016) 6. omeprazole 40 mg Oral cpDR 1 cap once daily (Last dose: 10/17/2016) - PMHx: Anxiety; bilateral leg fractures; Bipolar disorder; Chronic Back pain; Degenerative disc disease; Depression; Epilepsy; GERD; Hepatitis C; Irritable bowel syndrome; OCD; PTSD; right rib fractures; right wrist fracture; sternal fracture; TBI; - PSHx: back surgery; - Social history: Smoking status: Patient uses tobacco products, current every day smoker. Patient uses alcohol binge drinking for last 1 1/2 weeks. No barriers to communication noted, The patient speaks fluent Ukrainian, Speaks appropriately for age. - Family history: Not pertinent. - : The pt / caregiver states he / she is not on anticoagulants. Home medication list is obtained from the patient. - Exposure Risk Screening:: None identified. Vital Signs: 10/17 10:06 BP 159 / 93; Pulse 145; Resp 18; Temp 97.4; Pulse Ox 96% on R/A; Weight 106.14 kg / 234 dem1 lbs (M); Height 5 ft. 8 in. (172.72 cm) (R); Pain 7/10; 11:23 BP 112 / 78; Pulse 104; Resp 18; Temp 97.2; Pulse Ox 94% on R/A; Pain 8/10; rn1 10:06 Body Mass Index 35.58 (106.14 kg, 172.72 cm) dem1 MDM: 10:31 NS 0.9% 1000 ml IV at bolus once ordered. cc10 10:32 Ondansetron 4 mg IVP once ordered. cc10 10:32 IV Saline Lock ordered. cc10 10:32 Undress patient appropriately for examination ordered. cc10 10:32 diphenhydrAMINE 25 mg IVP once ordered. cc10 10:32 GI Cocktail - (Alum-Mag Hydroxide-Simeth 30 ml, Lidocaine 10 ml, Hyoscyamine 10 ml) PO cc10 once; Pre-mixed 50mL unit dose ordered. 10:32 Basic Metabolic Profile Ordered. EDMS 10:32 CBC with Diff Ordered. EDMS 10:32 Lipase Ordered. EDMS 10:32 Liver Profile Ordered. EDMS 10:32 Urinalysis Ordered. EDMS 10:33 Abdomen, Flat\E\Upright,PA Chest Ordered. EDMS 10:33 NOTHING BY MOUTH+DIET ordered. EDMS 11:14 Financial registration complete. mm15 11:19 [facility] [place] was scanned into [employer] and attached to record. mm15 11:54 Basic Metabolic Profile Reviewed. cc10 11:54 CBC with Diff Reviewed. cc10 11:54 Urinalysis Reviewed. cc10 11:54 Lipase Reviewed. cc10 11:54 Liver Profile Reviewed. cc10 11:54 Abdomen, Flat\E\Upright,PA Chest Reviewed. cc10 11:56 Vital Signs ordered. cc10 10/18 06:50 T-Sheet-- Draft Copy was scanned into [employer] and attached to record. gb Administered Medications: 10/17 11:01 Drug: diphenhydrAMINE 25 mg [diphenhydramine 50 mg/mL injection solution (0.5 mL)] dsf Route: IVP; Site: left antecubital; 12:12 Follow up: Response: No Adverse Reaction ttb 11:01 Drug: GI Cocktail - (Alum-Mag Hydroxide-Simeth Suspension 225 mg-200 mg-25 mg/5 mL 30 dsf ml, Lidocaine Liquid 2 % 10 ml, Hyoscyamine Liquid 10 ml) Route: PO; 11:02 Drug: NS 0.9% 1000 ml [sodium chloride 0.9 % injection solution] Route: IV; Rate: dsf bolus; Site: left antecubital; 12:12 Follow up: Response: No Adverse Reaction; IV Status: Completed infusion; IV Intake: ttb 1000ml 11:02 Drug: Ondansetron 4 mg [ondansetron HCl 2 mg/mL intravenous solution (2 mL)] Route: dsf IVP; Site: left antecubital; 11:50 Follow up: Response: Nausea is decreased; No Adverse Reaction ttb Signatures: Dispatcher [employer] EDMS Susan Munoz Reg Reg gb Robie, Kathleen,JULIO RN kr3 Alexa Wesley RN RN ttb Carolann Chaudhary mm15 Sergey Marshall PA-C PA-C cc10 Dione Payne RN dsf The chart was reviewed and I authenticate all verbal orders and agree with the evaluation and treatment provided.Attachments: : [facility] Payment Agreement mm15 10/18 06:50 T-Sheet-- Draft Copy gb Chart Complete MTDD
== END 2016-10-17 12:13 | disposition home or self-care (01) ==
LOC: M ED 10:03
DX: K29.20 Alcoholic gastritis without bleeding (principal); K58.9 Irritable bowel syndrome, unspecified; F41.9 Anxiety disorder, unspecified; F31.9 Bipolar disorder, unspecified; G89.29 Other chronic pain; M51.36 Other intervertebral disc degeneration, lumbar region; G40.909 Epilepsy, unspecified, not intractable, without status epilepticus; K21.9 Gastro-esophageal reflux disease without esophagitis; B19.20 Unspecified viral hepatitis C without hepatic coma; F42.9 Obsessive-compulsive disorder, unspecified; F43.10 Post-traumatic stress disorder, unspecified; Z87.820 Personal history of traumatic brain injury; Z87.81 Personal history of (healed) traumatic fracture; Z72.0 Tobacco use; Z79.899 Other long term (current) drug therapy; Z88.0 Allergy status to penicillin; Z88.1 Allergy status to other antibiotic agents; Z88.6 Allergy status to analgesic agent; Z88.8 Allergy status to other drugs, medicaments and biological substances; Z91.040 Latex allergy status; Z91.018 Allergy to other foods
CPT/HCPCS: 36415; 74022; 80048; 80076; 81001; 83690; 85025; 96361; 96374; 96375; 99284; J1200; J2405

== ENCOUNTER 2016-10-19 11:28 | Emergency (ER) | payer OTHER ==
[2016-10-19] MEDS ORDERED: diphenhydrAMINE INJ 50MG/ML VIAL (J1200) As Ordered ONE (11:59)
[2016-10-19] MEDS ORDERED: METOCLOPRAMIDE INJ 10MG/2ML VIAL (J2765) As Ordered ONE (11:59)
[2016-10-19] MEDS ORDERED: GASTROGRAFIN SOLUTION 30ML (Q9963) As Ordered ONE (12:06)
[2016-10-19 12:37] LABS: ALBUMIN 4.3 GM/DL (3.2-5.2); ALBUMIN/GLOBULIN RATIO 1.02 (1.00-1.93); ALKALINE PHOSPHATASE 98 U/L (45-117); ALT/SGPT 50 U/L (12-78); AMYLASE 66 U/L (25-115); ANION GAP 10 MEQ/L (8-16); AST/SGOT 37 U/L (15-37); BILIRUBIN,DIRECT 0.3 MG/DL (0.0-0.2); BILIRUBIN,TOTAL 0.7 MG/DL (0.2-1.0); BLOOD UREA NITROGEN 17 MG/DL (7-18); CALCIUM LEVEL 9.3 MG/DL (8.5-10.1); CARBON DIOXIDE LEVEL 28 MEQ/L (21-32); CHLORIDE LEVEL 100 MEQ/L (98-107); CREATININE FOR GFR 1.08 MG/DL (0.70-1.30); GLOMERULAR FILTRATION RATE > 60.0 (>60); GLUCOSE, FASTING 117 MG/DL (70-105); SODIUM LEVEL 138 MEQ/L (136-145); TOTAL PROTEIN 8.5 GM/DL (6.4-8.2)
--- NOTE | 2016-10-19 12:55 | REP ---
Chest x-ray: Two views. History: Chest pain. . Comparison study: October 17, 2016 . Findings: The lungs are well inflated and free of infiltrate. The pleural angles are sharp. The heart size is normal. Pulmonary vasculature is not increased. No significant bony abnormality is seen. Impression: Negative chest x-ray. Signed by Moses Georges MD 10/19/2016 12:46 P
[2016-10-19 12:58] LABS: MEAN CORPUSCULAR VOLUME 90.4 fl (80.0-96.0); WHITE BLOOD COUNT 9.7 K/mm3 (4.0-10.0)
[2016-10-19 12:59] LABS: BASO # 0.1 K/mm3 (0.0-0.2); BASO % 1.3 % (0.0-1.0); DIFF SLIDE NUMBER 151; EOS # 0.1 K/mm3 (0.0-0.50); EOS % 1.3 % (0.0-3.0); LARGE UNSTAINED CELL # 0.1 K/mm3 (0.0-0.4); LARGE UNSTAINED CELL % 1.3 % (0.0-4.0); LYMPH % 9.9 % (24.0-44.0); MEAN CORPUSCULAR HEMOGLOBIN 31.3 pg (27.0-33.0); MEAN CORPUSCULAR HGB CONC 34.6 g/dl (32.0-36.5); MONO # 0.6 K/mm3 (0.0-0.8); MONO % 5.9 % (0.0-5.0); NEUTROPHILS # 7.7 K/mm3 (1.8-7.7); NEUTROPHILS % 80.1 % (36.0-66.0); PLATELET COUNT, AUTOMATED 189 k/mm3 (150-450); RED CELL DISTRIBUTION WIDTH 13.8 % (11.5-14.5)
[2016-10-19] MEDS ORDERED: ISOVUE-370 76% 100ML VIAL (Q9967) As Ordered ONE (13:42)
[2016-10-19 13:46] LABS: AMPHETAMINES LEVEL URINE NEGATIVE (NEGATIVE); BENZODIAZEPINES URINE NEGATIVE (NEGATIVE); COCAINE METABOLITE URINE NEGATIVE (NEGATIVE); CONTROL LINE INT CTR LINE PRESENT; METHADONE URINE NEGATIVE (NEGATIVE); OPIATES URINE NEGATIVE (NEGATIVE); TRICYCLIC ANTIDEPRESS URINE POSITIVE (NEGATIVE)
--- NOTE | 2016-10-19 15:29 | EDDOCDS ---
Physician Documentation [facility] Name: Link Goncalves Age: 41 yrs Sex: Male : 1975 Arrival Date: 10/19/2016 Time: 11:28 Bed I5 / M5 Private MD: Steven Veloz D Disposition: 10/19/16 15:21 Discharged to Home/Self Care. Impression: Epigastric pain, Generalized abdominal pain. - Condition is Stable. - Discharge Instructions: Abdominal Pain, Adult, Gastritis, Adult, Erpu-do-Pwen. - Prescriptions for Carafate 1 gram Oral Tablet - take 2 tablet by ORAL route every 12 hours take on an empty stomach, beginning on waking and last dose at bedtime; 100 tablet. - Medication Reconciliation, Local Pharmacy Hours form. - Follow up: Steven Veloz; When: 2 - 3 days; Reason: Further diagnostic work-up, Recheck today's complaints, Continuance of care. - Problem is an ongoing problem. - Symptoms are unchanged. Historical: - Allergies: Amoxicillin (Hives); Aspirin (Vomit); BACLOFEN (SOB); Coconut (Anaphylaxis); Erythromycin (Upset stomach); Latex (Hives); muscle relaxers (bad reaction); PENICILLINS (Rash); Strawberries (Hives); - Home Meds: 1. albuterol sulfate 90 mcg/actuation Inhl HFAA 1 puff every 6 hours as needed (Last dose: Unknown) 2. Klonopin 0.5 mg Oral tab 1 tab 2 times per day has run out 5 days ago 3. Zoloft 100 mg Oral tab 1 tab once daily (Last dose: 10/19/2016 08:00) 4. omeprazole 40 mg Oral cpDR 1 cap once daily (Last dose: 10/19/2016 08:00) 5. Remeron Oral Unknown once daily ran out 1 week ago 6. Ambien Unknown Oral Has been taking 2-3 times daily so "I can rest" - PMHx: Anxiety; Bipolar disorder; Chronic Back pain; Degenerative disc disease; Depression; Epilepsy; GERD; Hepatitis C; OCD; PTSD; TBI; Irritable bowel syndrome; sternal fracture; right wrist fracture; right rib fractures; bilateral leg fractures; - PSHx: back surgery; - Social history: Smoking status: Patient uses tobacco products, light tobacco smoker. Patient uses street drugs, used "[employer] [employer] [place]" and stopped drinking on 10/15. "I was drinking 8-10 beers every day", No barriers to communication noted, The patient speaks fluent Sinhala. - Family history: Not pertinent. - : The pt / caregiver states he / she is not on anticoagulants. Home medication list is obtained from the patient. - Exposure Risk Screening:: None identified. Vital Signs: 10/19 11:32 BP 149 / 92; Pulse 114; Resp 20; Pulse Ox 96% ; Weight 106.14 kg / 234 lbs; Height 5 elp ft. 8 in. (172.72 cm); Pain 7/10; 12:14 Temp 95.8(TE); jc4 15:04 BP 144 / 92; Pulse 97; Resp 20; Temp 96.4; Pulse Ox 97% ; Pain 5/10; jam1 11:32 Body Mass Index 35.58 (106.14 kg, 172.72 cm) elp MDM: 11:51 Financial registration complete. lg 11:55 NS 0.9% 1000 ml IV at bolus once ordered. btw 11:55 IV Saline Lock ordered. btw 11:55 Undress patient appropriately for examination ordered. btw 11:55 Metoclopramide 20 mg IV at 80 mg/hr once over 15 mins ordered. btw 11:55 diphenhydrAMINE 50 mg IVP once ordered. btw 11:55 Amylase Ordered. EDMS 11:55 Basic Metabolic Profile Ordered. EDMS 11:55 CBC with Diff Ordered. EDMS 11:55 Lipase Ordered. EDMS 11:55 Liver Profile Ordered. EDMS 11:55 Urinalysis Ordered. EDMS 11:56 CT ABD & PELVIS: IV and Oral Contrast Ordered. EDMS 11:56 NOTHING BY MOUTH+DIET ordered. EDMS 11:57 ETOH Ordered. EDMS 11:57 Drug Eval Toxicology ED Only Ordered. EDMS 11:58 [facility] Payment Agreement was scanned into [employer] and attached to record. lg 11:58 ECG WITH READING ER PHYS+CARDIAG ordered. EDMS 12:02 D-Dimer Quant Ordered. EDMS 12:02 BNP Ordered. EDMS 12:02 Chest, 2 View (pa\\E\\lat) Ordered. EDMS 12:09 Diatrizoate Meglumine & Sodium Liquid 10 ml PO once; mix in 290cc of watergive at 1215 kr3 ordered. 12:09 Diatrizoate Meglumine & Sodium Liquid 10 ml PO once; mix in 290cc of water give at 1245 kr3 ordered. 12:12 CARDIAC MARKER PANEL Ordered. EDMS 13:28 Basic Metabolic Profile Reviewed. btw 13:28 CBC with Diff Reviewed. btw 13:28 Liver Profile Reviewed. btw 13:28 Amylase Reviewed. btw 13:28 Lipase Reviewed. btw 13:28 ETOH Reviewed. btw 13:28 D-Dimer Quant Reviewed. btw 13:28 BNP Reviewed. btw 13:28 CARDIAC MARKER PANEL Reviewed. btw 13:28 Chest, 2 View (pa\\E\\lat) Reviewed. btw 13:56 Urinalysis Reviewed. btw 13:56 Drug Eval Toxicology ED Only Reviewed. btw 14:57 CBC with Diff Reviewed. btw Administered Medications: 12:09 Drug: Diatrizoate Meglumine & Sodium 10 ml [diatrizoate meglumine and diat.sodium 66 kr3 %-10 % oral solution (10 mL)] Route: PO; 12:10 Drug: Metoclopramide 20 mg [metoclopramide 5 mg/mL injection solution] Route: IV; Rate: jo3 80 mg/hr; Infused Over: 15 mins; Site: right antecubital; 12:35 Follow up: IV Status: Completed infusion kr3 12:10 Drug: diphenhydrAMINE 50 mg [diphenhydramine 50 mg/mL injection solution (1 mL)] Route: jo3 IVP; Site: right antecubital; 12:35 Follow up: Response: Anxiety is improved kr3 12:11 Drug: NS 0.9% 1000 ml [sodium chloride 0.9 % intravenous solution] Route: IV; Rate: jo3 bolus; Site: right antecubital; 13:20 Follow up: IV Status: Completed infusion; IV Intake: 1000ml kr3 13:30 Follow up: IV Status: Completed infusion; IV Intake: 1000ml kr3 12:45 Drug: Diatrizoate Meglumine & Sodium 10 ml [diatrizoate meglumine and diat.sodium 66 jo3 %-10 % oral solution (10 mL)] Route: PO; Signatures: Dispatcher [employer] EDMS Jez Cole Reg Reg lg Robie, Kathleen,RN RN kr3 Reyna Valdez,RN RN jo3 Gallo Carlos PA PA btw Castle, Jennifer, RN RN jc4 The chart was reviewed and I authenticate all verbal orders and agree with the evaluation and treatment provided.Corrections: (The following items were deleted from the chart) 12:11 11:58 CARDIAC MARKER PANEL+LAB ordered. EDMS EDMS Attachments: 11:58 [facility] [place] Payment Agreement lg MTDD
--- NOTE | 2016-10-19 15:29 | EDDOCDS ---
Nurse's Notes [facility] Name: Link Goncalves Age: 41 yrs Sex: Male : 1975 Arrival Date: 10/19/2016 Time: 11:28 Bed I5 / M5 Private MD: Steven Veloz D Diagnosis: Epigastric pain;Generalized abdominal pain Presentation: 10/19 11:33 Presenting complaint: Patient states: was seen here two days ago and was diagnosed with jc4 gastroenteritis. States is not feeling any better. Vomited 8-10 times yesterday. "My stomach is bothering me bad, my stomach is bloated and it's hard to get a full breath, and with everything going on I'm having really bad anxiety". Adult Sepsis Screening: The patient does not have new or worsening altered mentation. Patient's respiratory rate is less than 22. Systolic blood pressure is greater than 100. Patient has a qSOFA score of 0- Negative Sepsis Screen. Suicide/Homicide risk assessment- the patient denies having any suicidal and/or homicidal ideations and does not present with any other emotional, behavioral or mental health complaints. Status: Patient is not a floor service worker spring or dependent. Transition of care: patient was not received from another setting of care. 11:33 Acuity: SIMÓN Level 3 jc4 11:33 Method Of Arrival: Walkin/Carried/Asstd jc4 Triage Assessment: 11:41 General: Appears ill. EENT: Reports "I've got some sort of infection from my nose". GI: jc4 Reports nausea. 11:41 Pain: Pain currently is 7 out of 10 on a pain scale. HIV screening NA for this visit jc4 Offered previously. Historical: - Allergies: Amoxicillin (Hives); Aspirin (Vomit); BACLOFEN (SOB); Coconut (Anaphylaxis); Erythromycin (Upset stomach); Latex (Hives); muscle relaxers (bad reaction); PENICILLINS (Rash); Strawberries (Hives); - Home Meds: 1. albuterol sulfate 90 mcg/actuation Inhl HFAA 1 puff every 6 hours as needed (Last dose: Unknown) 2. Klonopin 0.5 mg Oral tab 1 tab 2 times per day has run out 5 days ago 3. Zoloft 100 mg Oral tab 1 tab once daily (Last dose: 10/19/2016 08:00) 4. omeprazole 40 mg Oral cpDR 1 cap once daily (Last dose: 10/19/2016 08:00) 5. Remeron Oral Unknown once daily ran out 1 week ago 6. Ambien Unknown Oral Has been taking 2-3 times daily so "I can rest" - PMHx: Anxiety; Bipolar disorder; Chronic Back pain; Degenerative disc disease; Depression; Epilepsy; GERD; Hepatitis C; OCD; PTSD; TBI; Irritable bowel syndrome; sternal fracture; right wrist fracture; right rib fractures; bilateral leg fractures; - PSHx: back surgery; - Social history: Smoking status: Patient uses tobacco products, light tobacco smoker. Patient uses street drugs, used "[place]" and stopped drinking on 10/15. "I was drinking 8-10 beers every day", No barriers to communication noted, The patient speaks fluent Greenlandic. - Family history: Not pertinent. - : The pt / caregiver states he / she is not on anticoagulants. Home medication list is obtained from the patient. - Exposure Risk Screening:: None identified. Screenin:36 Screening information is obtained from the patient. Fall risk: No risks identified. kr3 Assistance ADL's: requires no assistance with activities of daily living. Abuse/DV Screen: The patient / caregiver reports he/she is: not in a situation that causes fear, pain or injury. Nutritional screening: No deficits noted. Advance Directives: Currently, there is no health care proxy. home support is adequate. 13:04 Screening information is obtained from the patient. Primary language is Greenlandic. Fall jam1 risk: No risks identified. Assistance ADL's: requires no assistance with activities of daily living. Abuse/DV Screen: The patient / caregiver reports he/she is: not in a situation that causes fear, pain or injury. Nutritional screening: No deficits noted. Exposure Risk Screening: None identified. Advance Directives: Currently, there is no health care proxy. There is no active DNR order. There is no living will. There is no Power of Ball Racker. Advance directive information has not previously been placed in an [facility] medical record. Further advance directive information is declined. home support is adequate. Assessment: 12:00 General: Appears comfortable, Behavior is anxious, cooperative. Neurological: Level of jo3 Consciousness is awake, alert, Oriented to person, place, time. Cardiovascular: No deficits noted. Respiratory: Airway is patent Respiratory effort is even, unlabored. GI: Abdomen is non- distended Bowel sounds present X 4 quads. Abd is soft X 4 quads Abd is tender to palpation in epigastric area. Derm: Skin is intact, Skin is clammy, Skin is normal, Skin temperature is cool. 12:35 General: Appears comfortable, reports anxiety has improved with medications. kr3 Neurological: Level of Consciousness is awake, alert. Respiratory: Respiratory effort is even, unlabored. 13:30 Reassessment: Patient appears in no apparent distress at this time. Neurological: Level kr3 of Consciousness is awake, alert. Respiratory: Respiratory effort is even, unlabored. Derm: Skin is normal. 13:55 Reassessment: Patient appears in no apparent distress at this time. General: Taken to jo3 CT scan at this time. Tolerated well. Awaiting results. Aware of plan of care . Neurological: Level of Consciousness is awake, alert, Oriented to person, place, time. Cardiovascular: No deficits noted. Respiratory: Airway is patent Respiratory effort is even, unlabored. 15:06 General: Appears in no apparent distress, Behavior is anxious, cooperative. General: Pt jo3 requesting anxiety medication. Provider notified. Awaiting disposition at this time. Aware of plan of care . Neurological: No deficits noted. Respiratory: Airway is patent Respiratory effort is even, unlabored. Vital Signs: 11:32 BP 149 / 92; Pulse 114; Resp 20; Pulse Ox 96% ; Weight 106.14 kg; Height 5 ft. 8 in. elp (172.72 cm); Pain 7/10; 12:14 Temp 95.8(TE); jc4 15:04 BP 144 / 92; Pulse 97; Resp 20; Temp 96.4; Pulse Ox 97% ; Pain 5/10; jam1 11:32 Body Mass Index 35.58 (106.14 kg, 172.72 cm) [facility] Vitals: 11:32 Log In Time: October 19, 2016 at 11:30. [facility] ED Course: 11:31 Patient visited by Ines Ponce PCA. elp 11:31 Steven Veloz is Private Physician. elp 11:31 Patient moved to Waiting el 11:32 Patient visited by Ines Ponce PCA. elp 11:32 Patient moved to Pre RCE elp 11:35 Triage Initiated jc4 11:43 Patient moved to Triage 2 jc4 11:45 Gallo Carlos PA is PHCP. btw 11:45 Corinne Banks MD is Attending Physician. btw 11:45 Patient visited by Gallo Carlos PA. btw 11:56 Patient moved to I5 / M5 js13 11:58 [facility] Payment Agreement was scanned into [employer] and attached to record. lg 12:00 Inserted saline lock: 18 gauge in right antecubital area. Labs drawn. (by ED staff). jo3 Sent per order to lab. 12:10 BNP Sent. jo3 12:10 D-Dimer Quant Sent. jo3 12:10 Drug Eval Toxicology ED Only Sent. jo3 12:10 ETOH Sent. jo3 12:10 Amylase Sent. jo3 12:10 Basic Metabolic Profile Sent. jo3 12:11 CBC with Diff Sent. jo3 12:11 Lipase Sent. jo3 12:11 Liver Profile Sent. jo3 12:35 The patient / caregiver is instructed regarding the plan of care and ED course. Patient byron3 has correct armband on for positive identification. Placed in gown. Bed in low position. Call light in reach. Side rails up X 1. 12:36 Patient visited by Dolly El RN. kr3 12:36 CARDIAC MARKER PANEL Sent. kr3 13:04 Patient has correct armband on for positive identification. Placed in gown. Bed in low jam1 position. Call light in reach. Side rails up X 1. Door closed. 13:06 Patient visited by Reyna Valdez RN. jo3 13:07 Patient visited by Reyna Valdez,JULIO. jo3 13:16 Chest, 2 View (pa\\E\\lat) Returned. EDMS 13:29 Urinalysis Sent. kr3 13:56 Patient visited by Reyna Valdez RN. jo3 14:03 Patient visited by Tsering Tucker PCA. jam1 14:03 PT WALKING AROUND ROOM. jam1 15:08 Patient visited by Reyna Valdez,JULIO. jo3 15:20 Steven Veloz is Referral Physician. btw 15:28 Discontinued lock intact, bleeding controlled, pressure dressing applied, No kr3 redness/swelling at site. No procedures done that require assistance. Administered Medications: 12:09 Drug: Diatrizoate Meglumine & Sodium 10 ml [diatrizoate meglumine and diat.sodium 66 kr3 %-10 % oral solution (10 mL)] Route: PO; 12:10 Drug: Metoclopramide 20 mg [metoclopramide 5 mg/mL injection solution] Route: IV; Rate: jo3 80 mg/hr; Infused Over: 15 mins; Site: right antecubital; 12:35 Follow up: IV Status: Completed infusion kr3 12:10 Drug: diphenhydrAMINE 50 mg [diphenhydramine 50 mg/mL injection solution (1 mL)] Route: jo3 IVP; Site: right antecubital; 12:35 Follow up: Response: Anxiety is improved kr3 12:11 Drug: NS 0.9% 1000 ml [sodium chloride 0.9 % intravenous solution] Route: IV; Rate: jo3 bolus; Site: right antecubital; 13:20 Follow up: IV Status: Completed infusion; IV Intake: 1000ml kr3 13:30 Follow up: IV Status: Completed infusion; IV Intake: 1000ml kr3 12:45 Drug: Diatrizoate Meglumine & Sodium 10 ml [diatrizoate meglumine and diat.sodium 66 jo3 %-10 % oral solution (10 mL)] Route: PO; Intake: 13:20 IV: 1000.00ml; Total: 1000.00ml. kr3 13:30 IV: 1000.00ml; Total: 2000.00ml. kr3 Order Results: Lab Order: Amylase; SPEC'M 10/19/16 12:03 Test: AMYLASE; Value: 66; Range: 25-115; Units: U/L; Status: F Lab Order: Basic Metabolic Profile; SPEC'M 10/19/16 12:03 Test: GLUCOSE, FASTING; Value: 117; Range: 70-105; Abnormal: Above high normal; Units: MG/DL; Status: F Test: BLOOD UREA NITROGEN; Value: 17; Range: 7-18; Units: MG/DL; Status: F Test: CREATININE FOR GFR; Value: 1.08; Range: 0.70-1.30; Units: MG/DL; Status: F Test: GLOMERULAR FILTRATION RATE; Value: > 60.0; Range: >60; Status: F Test: SODIUM LEVEL; Value: 138; Range: 136-145; Units: MEQ/L; Status: F Test: POTASSIUM SERUM; Value: 4.0; Range: 3.5-5.1; Units: MEQ/L; Status: F Test: CHLORIDE LEVEL; Value: 100; Range: 98-107; Units: MEQ/L; Status: F Test: CARBON DIOXIDE LEVEL; Value: 28; Range: 21-32; Units: MEQ/L; Status: F Test: ANION GAP; Value: 10; Range: 8-16; Units: MEQ/L; Status: F Test: CALCIUM LEVEL; Value: 9.3; Range: 8.5-10.1; Units: MG/DL; Status: F Test Note: ; Units are mL/min/1.73 m2 Chronic Kidney Disease Staging per NKF: Stage I & II GFR >=60 Normal to Mildly Decreased Stage III GFR 30-59 Moderately Decreased Stage IV GFR 15-29 Severely Decreased Stage V GFR <15 Very Little GFR Left ESRD GFR <15 on [facility]LL[facility] [employer]ER Lab Order: CBC with Diff; SPEC'M 10/19/16 12:03 Test: WHITE BLOOD COUNT; Value: 9.7; Range: 4.0-10.0; Units: K/mm3; Status: F Test: RED BLOOD COUNT; Value: 6.08; Range: 4.30-6.10; Units: M/mm3; Status: F Test: HEMOGLOBIN; Value: 19.0; Range: 14.0-18.0; Abnormal: Above high normal; Units: g/dl; Status: F Test: HEMATOCRIT; Value: 55.0; Range: 42.0-52.0; Abnormal: Above high normal; Units: %; Status: F Test: MEAN CORPUSCULAR VOLUME; Value: 90.4; Range: 80.0-96.0; Units: fl; Status: F Test: MEAN CORPUSCULAR HEMOGLOBIN; Value: 31.3; Range: 27.0-33.0; Units: pg; Status: F Test: MEAN CORPUSCULAR HGB CONC; Value: 34.6; Range: 32.0-36.5; Units: g/dl; Status: F Test: RED CELL DISTRIBUTION WIDTH; Value: 13.8; Range: 11.5-14.5; Units: %; Status: F Test: PLATELET COUNT, AUTOMATED; Value: 189; Range: 150-450; Units: k/mm3; Status: F Test: NEUTROPHILS %; Value: 80.1; Range: 36.0-66.0; Abnormal: Above high normal; Units: %; Status: F Test: LYMPH %; Value: 9.9; Range: 24.0-44.0; Abnormal: Below low normal; Units: %; Status: F Test: MONO %; Value: 5.9; Range: 0.0-5.0; Abnormal: Above high normal; Units: %; Status: F Test: EOS %; Value: 1.3; Range: 0.0-3.0; Units: %; Status: F Test: BASO %; Value: 1.3; Range: 0.0-1.0; Abnormal: Above high normal; Units: %; Status: F Test: LARGE UNSTAINED CELL %; Value: 1.3; Range: 0.0-4.0; Units: %; Status: F Test: NEUTROPHILS #; Value: 7.7; Range: 1.8-7.7; Units: K/mm3; Status: F Test: LYMPH #; Value: 1.0; Range: 1.5-4.5; Abnormal: Below low normal; Units: K/mm3; Status: F Test: MONO #; Value: 0.6; Range: 0.0-0.8; Units: K/mm3; Status: F Test: EOS #; Value: 0.1; Range: 0.0-0.50; Units: K/mm3; Status: F Test: BASO #; Value: 0.1; Range: 0.0-0.2; Units: K/mm3; Status: F Test: LARGE UNSTAINED CELL #; Value: 0.1; Range: 0.0-0.4; Units: K/mm3; Status: F Lab Order: Lipase; SPEC'10/19/16 12:03 Test: LIPASE; Value: 161; Range: 73-393; Units: U/L; Status: F Lab Order: Liver Profile; SPEC'10/19/16 12:03 Test: AST/SGOT; Value: 37; Range: 15-37; Units: U/L; Status: F Test: ALT/SGPT; Value: 50; Range: 12-78; Units: U/L; Status: F Test: ALKALINE PHOSPHATASE; Value: 98; Range: 45-117; Units: U/L; Status: F Test: BILIRUBIN,TOTAL; Value: 0.7; Range: 0.2-1.0; Units: MG/DL; Status: F Test: BILIRUBIN,DIRECT; Value: 0.3; Range: 0.0-0.2; Abnormal: Above high normal; Units: MG/DL; Status: F Test: TOTAL PROTEIN; Value: 8.5; Range: 6.4-8.2; Abnormal: Above high normal; Units: GM/DL; Status: F Test: ALBUMIN; Value: 4.3; Range: 3.2-5.2; Units: GM/DL; Status: F Test: ALBUMIN/GLOBULIN RATIO; Value: 1.02; Range: 1.00-1.93; Status: F Lab Order: Urinalysis; SPEC'M 10/19/16 13:27 Test: APPEARANCE, URINE; Value: CLEAR; Range: CLEAR; Status: F Test: COLOR, URINE; Value: YELLOW; Range: YELLOW; Status: F Test: PH,URINE; Value: 6.0; Range: 5.0-9.0; Units: UNITS; Status: F Test: SPECIFIC GRAVITY URINE AUTO; Value: 1.018; Range: 1.002-1.035; Status: F Test: PROTEIN, URINE AUTO; Value: 1+; Range: NEGATIVE; Abnormal: Above high normal; Units: mg/dL; Status: F Test: GLUCOSE, URINE (UA) AUTO; Value: NEGATIVE; Range: NEGATIVE; Units: mg/dL; Status: F Test: KETONE, URINE AUTO; Value: NEGATIVE; Range: NEGATIVE; Units: mg/dL; Status: F Test: UROBILINOGEN, URINE AUTO; Value: 0.2; Range: 0.0-2.0; Units: mg/dL; Status: F Test: BILIRUBIN, URINE AUTO; Value: NEGATIVE; Range: NEGATIVE; Status: F Test: NITRITE, URINE AUTO; Value: NEGATIVE; Range: NEGATIVE; Status: F Test: LEUKOCYTE ESTERASE, URINE AUTO; Value: NEGATIVE; Range: NEGATIVE; Status: F Test: BLOOD, URINE BLOOD; Value: NEGATIVE; Range: NEGATIVE; Status: F Test: WBC, URINE AUTO; Value: 1; Range: 0-3; Units: /HPF; Status: F Test: RBC, URINE AUTO; Value: 2; Range: 0-3; Units: /HPF; Status: F Test: BACTERIA, URINE AUTO; Value: NEGATIVE; Range: NEGATIVE; Status: F Test: SQUAMOUS EPITHELIAL CELL UR AU; Value: 0; Range: 0-6; Units: /HPF; Status: F Test: MUCUS, URINE; Value: SMALL; Range: NEGATIVE; Status: F Test: HYALINE CAST, URINE AUTO; Value: 0; Range: 0-1; Units: /LPF; Status: F Lab Order: ETOH; SPEC'M 10/19/16 12:03 Test: ETHYL ALCOHOL (ETHANOL); Value: < 0.003; Range: 0.000-0.010; Units: %; Status: F Lab Order: Drug Eval Toxicology ED Only; SPEC'M 10/19/16 13:27 Test: AMPHETAMINES LEVEL URINE; Value: NEGATIVE; Range: NEGATIVE; Status: F Test: BARBITURATES URINE; Value: NEGATIVE; Range: NEGATIVE; Status: F Test: BENZODIAZEPINES URINE; Value: NEGATIVE; Range: NEGATIVE; Status: F Test: CANNABINOIDS URINE; Value: NEGATIVE; Range: NEGATIVE; Status: F Test: COCAINE METABOLITE URINE; Value: NEGATIVE; Range: NEGATIVE; Status: F Test: METHADONE URINE; Value: NEGATIVE; Range: NEGATIVE; Status: F Test: OPIATES URINE; Value: NEGATIVE; Range: NEGATIVE; Status: F Test: TRICYCLIC ANTIDEPRESS URINE; Value: POSITIVE; Range: NEGATIVE; Abnormal: Above high normal; Status: F Test Note: ; ALL PRESUMPTIVE POSITIVE FINDINGS ARE UNCONFIRMED NORMAL VALUES THRESHOLD IN NG/ML AMPHETAMINES 1000 METHAMPHETAMINES 1000 BARBITURATES 300 BENZODIAZEPINES 300 CANNABINOIDS (THC) 50 COCAINE METABOLITE 300 METHADONE 300 OPIATES 300 PHENCYCLIDINE 25 TRICYCLIC ANTIDEPRESSANTS 1000 RESULTS ARE FOR MEDICAL PURPOSES ONLY. ALL URINE SPECIMENS WILL BE SAVED FOR 3 DAYS. IF CONFIRMATION OF A PRESUMPTIVE POSTIVE SCREEN RESULT IS DESIRED, CALL CHEMISTRY ([phone]) AND REQUEST URINE TO BE SENT TO REFERENCE LAB. FOR A LIST OF CLOSELY RELATED COMPOUNDS PLEASE CALL THE LAB. Lab Order: D-Dimer Quant; SPEC'M 10/19/16 12:03 Test: D-DIMER QUANT; Value: < 270.0; Range: <500; Units: ng/ml; Status: F Lab Order: BNP; SPEC'M 10/19/16 12:03 Test: BRAIN NATRIURETIC PEPTIDE; Value: < 5.0; Range: <100; Units: PG/ML; Status: F Lab Order: CARDIAC MARKER PANEL; SPEC'M 10/19/16 12:03 Test: CPK CREATINE PHOSPHOKINASE; Value: 171; Range: 39-308; Units: U/L; Status: F Test: CK-MB VALUE MASS; Value: 1.0; Range: 0.0-3.6; Units: NG/ML; Status: F Test: MB/CK RELATIVE INDEX; Value: 0.58; Range: < OR =4; Status: F Test: TROPONIN I; Value: < 0.02; Range: < 0.10; Units: NG/ML; Status: F Test Note: ; DIAGNOSIS CRITERIA MMB ng/ml Relative Index (RI) NON-AMI < or = 5 N/A CASTRO ZONE > 5 < or = 4 AMI > 5 > 4 Radiology Order: Chest, 2 View (pa\\E\\lat) Test: Chest, 2 View (pa\\E\\lat) REASON FOR EXAMINATION: Chest Pain; Chest x-ray: Two views.; ; History: Chest pain. .; ; Comparison study: October 17, 2016 .; ; Findings: The lungs are well inflated and free of infiltrate. The pleural; angles are sharp. The heart size is normal. Pulmonary vasculature is not; increased. No significant bony abnormality is seen.; ; Impression:; ; Negative chest x-ray.; ; ; Signed by; Moses Georges MD 10/19/2016 12:46 P; Outcome: 15:21 Discharge ordered by Provider. btw 15:27 Discharge Assessment: patient administered narcotics - no. The following High Risk kr3 Discharge criteria are identified: None. Discharged to home ambulatory. Condition: stable. Discharge instructions given to patient, Instructed on discharge instructions, follow up and referral plans. medication usage, diet, Demonstrated understanding of instructions, medications, Pt was receptive of discharge instructions/ teaching. Prescriptions given X 1. CT Study completed. Property sent home with patient. 15:28 Patient left the ED. kr3 Signatures: Dispatcher [employer] EDMS Tsering Tucker, OPTOMETRIC TECH OPTOMETRIC TECH jam1 Jez Cole, Dolly Porras lg,RN RN byron3 Reyna Valdez,JULIO RN jennifer3 Gallo Carlos PA PA btw Castle, Jennifer, RN RN jc4 Reyna Reyes,RN RN js13 Ines Ponce, OPTOMETRIC TECH OPTOMETRIC TECH elp Corrections: (The following items were deleted from the chart) 12:11 12:10 CARDIAC MARKER PANEL+LAB sent. ivelisse ODONNELL MTDD
--- NOTE | 2016-10-19 17:02 | REP ---
CT study of the abdomen and pelvis with IV and oral contrast: History: Abdominal pain periumbilical region. CT contrast dose: 100 mL of Isovue [address] findings: Preliminary digital land appraiser radiograph is unremarkable. The lung bases are clear. The liver and the spleen are homogeneous in texture. The spleen is somewhat enlarged in this patient measuring 17 cm in greatest anteroposterior span. No adrenal lesion is seen on either side. The pancreas is unremarkable. The gallbladder appears mildly distended measuring 10.0 cm in diameter. It is homogeneous however and normal in density. The kidneys enhance symmetrically are morphologically intact. Normal caliber aorta is seen. No retroperitoneal mass or adenopathy is seen. Small and large intestinal bowel loops are unremarkable. Seminal vesicles, prostate and urinary bladder are unremarkable. A normal appendix is visible in the right lower quadrant. No abdominal wall defect is seen. No bony destructive lesion is appreciated. There are multiple bone islands in the proximal femurs and pelvic bones. Impression: Splenomegaly and mildly dilated gallbladder. Normal appendix. Otherwise unremarkable CT study of the abdomen and pelvis. Signed by Moses Georges MD 10/19/2016 05:34 P
--- NOTE | 2016-10-19 23:02 | ECGEPIP ---
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
--- NOTE | 2016-10-22 11:17 | EDDOCDS ---
Physician Documentation [facility] Name: Link Goncalves Age: 41 yrs Sex: Male : 1975 Arrival Date: 10/19/2016 Time: 11:28 Bed I5 / M5 Private MD: Steven Veloz D Disposition: 10/19/16 15:21 Discharged to Home/Self Care. Impression: Epigastric pain, Generalized abdominal pain. - Condition is Stable. - Discharge Instructions: Abdominal Pain, Adult, Gastritis, Adult, [id number]. - Prescriptions for Carafate 1 gram Oral Tablet - take 2 tablet by ORAL route every 12 hours take on an empty stomach, beginning on waking and last dose at bedtime; 100 tablet. - Medication Reconciliation, Local Pharmacy Hours form. - Follow up: Steven Veloz; When: 2 - 3 days; Reason: Further diagnostic work-up, Recheck today's complaints, Continuance of care. - Problem is an ongoing problem. - Symptoms are unchanged. Historical: - Allergies: Amoxicillin (Hives); Aspirin (Vomit); BACLOFEN (SOB); Coconut (Anaphylaxis); Erythromycin (Upset stomach); Latex (Hives); muscle relaxers (bad reaction); PENICILLINS (Rash); Strawberries (Hives); - Home Meds: 1. albuterol sulfate 90 mcg/actuation Inhl HFAA 1 puff every 6 hours as needed (Last dose: Unknown) 2. Klonopin 0.5 mg Oral tab 1 tab 2 times per day has run out 5 days ago 3. Zoloft 100 mg Oral tab 1 tab once daily (Last dose: 10/19/2016 08:00) 4. omeprazole 40 mg Oral cpDR 1 cap once daily (Last dose: 10/19/2016 08:00) 5. Remeron Oral Unknown once daily ran out 1 week ago 6. Ambien Unknown Oral Has been taking 2-3 times daily so "I can rest" - PMHx: Anxiety; Bipolar disorder; Chronic Back pain; Degenerative disc disease; Depression; Epilepsy; GERD; Hepatitis C; OCD; PTSD; TBI; Irritable bowel syndrome; sternal fracture; right wrist fracture; right rib fractures; bilateral leg fractures; - PSHx: back surgery; - Social history: Smoking status: Patient uses tobacco products, light tobacco smoker. Patient uses street drugs, used "A[place]n [place] [place]" and stopped drinking on 10/15. "I was drinking 8-10 beers every day", No barriers to communication noted, The patient speaks fluent Peruvian. - Family history: Not pertinent. - : The pt / caregiver states he / she is not on anticoagulants. Home medication list is obtained from the patient. - Exposure Risk Screening:: None identified. Vital Signs: 10/19 11:32 BP 149 / 92; Pulse 114; Resp 20; Pulse Ox 96% ; Weight 106.14 kg / 234 lbs; Height 5 elp ft. 8 in. (172.72 cm); Pain 7/10; 12:14 Temp 95.8(TE); jc4 15:04 BP 144 / 92; Pulse 97; Resp 20; Temp 96.4; Pulse Ox 97% ; Pain 5/10; jam1 11:32 Body Mass Index 35.58 (106.14 kg, 172.72 cm) elp MDM: 11:51 Financial registration complete. lg 11:55 NS 0.9% 1000 ml IV at bolus once ordered. btw 11:55 IV Saline Lock ordered. btw 11:55 Undress patient appropriately for examination ordered. btw 11:55 Metoclopramide 20 mg IV at 80 mg/hr once over 15 mins ordered. btw 11:55 diphenhydrAMINE 50 mg IVP once ordered. btw 11:55 Amylase Ordered. EDMS 11:55 Basic Metabolic Profile Ordered. EDMS 11:55 CBC with Diff Ordered. EDMS 11:55 Lipase Ordered. EDMS 11:55 Liver Profile Ordered. EDMS 11:55 Urinalysis Ordered. EDMS 11:56 CT ABD & PELVIS: IV and Oral Contrast Ordered. EDMS 11:56 NOTHING BY MOUTH+DIET ordered. EDMS 11:57 ETOH Ordered. EDMS 11:57 Drug Eval Toxicology ED Only Ordered. EDMS 11:58 [facility] Payment Agreement was scanned into [employer] and attached to record. lg 11:58 ECG WITH READING ER PHYS+CARDIAG ordered. EDMS 12:02 D-Dimer Quant Ordered. EDMS 12:02 BNP Ordered. EDMS 12:02 Chest, 2 View (pa\\E\\lat) Ordered. EDMS 12:09 Diatrizoate Meglumine & Sodium Liquid 10 ml PO once; mix in 290cc of watergive at 1215 kr3 ordered. 12:09 Diatrizoate Meglumine & Sodium Liquid 10 ml PO once; mix in 290cc of water give at 1245 kr3 ordered. 12:12 CARDIAC MARKER PANEL Ordered. EDMS 13:28 Basic Metabolic Profile Reviewed. btw 13:28 CBC with Diff Reviewed. btw 13:28 Liver Profile Reviewed. btw 13:28 Amylase Reviewed. btw 13:28 Lipase Reviewed. btw 13:28 ETOH Reviewed. btw 13:28 D-Dimer Quant Reviewed. btw 13:28 BNP Reviewed. btw 13:28 CARDIAC MARKER PANEL Reviewed. btw 13:28 Chest, 2 View (pa\\E\\lat) Reviewed. btw 13:56 Urinalysis Reviewed. btw 13:56 Drug Eval Toxicology ED Only Reviewed. btw 14:57 CBC with Diff Reviewed. btw 18:02 [facility] Payment Agreement was scanned into End[employer] and attached to record. [id number] 19:32 ED course: dr veloz faxed formal report of ct abd/p for fu mlg. ml 20:15 T-Sheet-- Draft Copy was scanned into End[employer] and attached to record. klr 10/20 08:57 ECG/EKG was scanned into [employer] and attached to record. gb Administered Medications: 10/19 12:09 Drug: Diatrizoate Meglumine & Sodium 10 ml [diatrizoate meglumine and diat.sodium 66 kr3 %-10 % oral solution (10 mL)] Route: PO; 12:10 Drug: Metoclopramide 20 mg [metoclopramide 5 mg/mL injection solution] Route: IV; Rate: jo3 80 mg/hr; Infused Over: 15 mins; Site: right antecubital; 12:35 Follow up: IV Status: Completed infusion kr3 12:10 Drug: diphenhydrAMINE 50 mg [diphenhydramine 50 mg/mL injection solution (1 mL)] Route: jo3 IVP; Site: right antecubital; 12:35 Follow up: Response: Anxiety is improved kr3 12:11 Drug: NS 0.9% 1000 ml [sodium chloride 0.9 % intravenous solution] Route: IV; Rate: jo3 bolus; Site: right antecubital; 13:20 Follow up: IV Status: Completed infusion; IV Intake: 1000ml kr3 13:30 Follow up: IV Status: Completed infusion; IV Intake: 1000ml kr3 12:45 Drug: Diatrizoate Meglumine & Sodium 10 ml [diatrizoate meglumine and diat.sodium 66 jo3 %-10 % oral solution (10 mL)] Route: PO; Signatures: Dispatcher [employer] EDMS Corinne Banks MD MD ml Susan Munoz, Reg Reg gb Jez Cole, Reg Reg lg Dolly El,RN RN kr3 Reyna Valdez,RN RN jo3 Gallo Carlos PA PA micaw Reyna Hong, RN RN jc4 Gracie Fernandez, Reg Reg ks16 Deborah Reardon The chart was reviewed and I authenticate all verbal orders and agree with the evaluation and treatment provided.Corrections: (The following items were deleted from the chart) 12:11 11:58 CARDIAC MARKER PANEL+LAB ordered. EDSD EDSD Attachments: 11:58 [facility] Payment Agreement lg 18:02 [facility] Payment Agreement [email or web address] 20:15 T-Sheet-- Draft Copy klr 10/20 08:57 ECG/EKG gb Chart Complete MTDD
--- NOTE | 2016-10-22 11:17 | EDDOCDS ---
Physician Documentation [facility] Name: Link Goncalves Age: 41 yrs Sex: Male : 1975 Arrival Date: 10/19/2016 Time: 11:28 Bed I5 / M5 Private MD: Steven Veloz D Disposition: 10/19/16 15:21 Discharged to Home/Self Care. Impression: Epigastric pain, Generalized abdominal pain. - Condition is Stable. - Discharge Instructions: Abdominal Pain, Adult, Gastritis, Adult, [id number]. - Prescriptions for Carafate 1 gram Oral Tablet - take 2 tablet by ORAL route every 12 hours take on an empty stomach, beginning on waking and last dose at bedtime; 100 tablet. - Medication Reconciliation, Local Pharmacy Hours form. - Follow up: Steven Veloz; When: 2 - 3 days; Reason: Further diagnostic work-up, Recheck today's complaints, Continuance of care. - Problem is an ongoing problem. - Symptoms are unchanged. Historical: - Allergies: Amoxicillin (Hives); Aspirin (Vomit); BACLOFEN (SOB); Coconut (Anaphylaxis); Erythromycin (Upset stomach); Latex (Hives); muscle relaxers (bad reaction); PENICILLINS (Rash); Strawberries (Hives); - Home Meds: 1. albuterol sulfate 90 mcg/actuation Inhl HFAA 1 puff every 6 hours as needed (Last dose: Unknown) 2. Klonopin 0.5 mg Oral tab 1 tab 2 times per day has run out 5 days ago 3. Zoloft 100 mg Oral tab 1 tab once daily (Last dose: 10/19/2016 08:00) 4. omeprazole 40 mg Oral cpDR 1 cap once daily (Last dose: 10/19/2016 08:00) 5. Remeron Oral Unknown once daily ran out 1 week ago 6. Ambien Unknown Oral Has been taking 2-3 times daily so "I can rest" - PMHx: Anxiety; Bipolar disorder; Chronic Back pain; Degenerative disc disease; Depression; Epilepsy; GERD; Hepatitis C; OCD; PTSD; TBI; Irritable bowel syndrome; sternal fracture; right wrist fracture; right rib fractures; bilateral leg fractures; - PSHx: back surgery; - Social history: Smoking status: Patient uses tobacco products, light tobacco smoker. Patient uses street drugs, used "[place] [place]" and stopped drinking on 10/15. "I was drinking 8-10 beers every day", No barriers to communication noted, The patient speaks fluent [place]ry[place]in[place]. - Family history: Not pertinent. - : The pt / caregiver states he / she is not on anticoagulants. Home medication list is obtained from the patient. - Exposure Risk Screening:: None identified. Vital Signs: 10/19 11:32 BP 149 / 92; Pulse 114; Resp 20; Pulse Ox 96% ; Weight 106.14 kg / 234 lbs; Height 5 elp ft. 8 in. (172.72 cm); Pain 7/10; 12:14 Temp 95.8(TE); jc4 15:04 BP 144 / 92; Pulse 97; Resp 20; Temp 96.4; Pulse Ox 97% ; Pain 5/10; jam1 11:32 Body Mass Index 35.58 (106.14 kg, 172.72 cm) elp MDM: 11:51 Financial registration complete. lg 11:55 NS 0.9% 1000 ml IV at bolus once ordered. btw 11:55 IV Saline Lock ordered. btw 11:55 Undress patient appropriately for examination ordered. btw 11:55 Metoclopramide 20 mg IV at 80 mg/hr once over 15 mins ordered. btw 11:55 diphenhydrAMINE 50 mg IVP once ordered. btw 11:55 Amylase Ordered. EDMS 11:55 Basic Metabolic Profile Ordered. EDMS 11:55 CBC with Diff Ordered. EDMS 11:55 Lipase Ordered. EDMS 11:55 Liver Profile Ordered. EDMS 11:55 Urinalysis Ordered. EDMS 11:56 CT ABD & PELVIS: IV and Oral Contrast Ordered. EDMS 11:56 NOTHING BY MOUTH+DIET ordered. EDMS 11:57 ETOH Ordered. EDMS 11:57 Drug Eval Toxicology ED Only Ordered. EDMS 11:58 [facility] Payment Agreement was scanned into [employer] and attached to record. lg 11:58 ECG WITH READING ER PHYS+CARDIAG ordered. EDMS 12:02 D-Dimer Quant Ordered. EDMS 12:02 BNP Ordered. EDMS 12:02 Chest, 2 View (pa\\E\\lat) Ordered. EDMS 12:09 Diatrizoate Meglumine & Sodium Liquid 10 ml PO once; mix in 290cc of watergive at 1215 kr3 ordered. 12:09 Diatrizoate Meglumine & Sodium Liquid 10 ml PO once; mix in 290cc of water give at 1245 kr3 ordered. 12:12 CARDIAC MARKER PANEL Ordered. EDMS 13:28 Basic Metabolic Profile Reviewed. btw 13:28 CBC with Diff Reviewed. btw 13:28 Liver Profile Reviewed. btw 13:28 Amylase Reviewed. btw 13:28 Lipase Reviewed. btw 13:28 ETOH Reviewed. btw 13:28 D-Dimer Quant Reviewed. btw 13:28 BNP Reviewed. btw 13:28 CARDIAC MARKER PANEL Reviewed. btw 13:28 Chest, 2 View (pa\\E\\lat) Reviewed. btw 13:56 Urinalysis Reviewed. btw 13:56 Drug Eval Toxicology ED Only Reviewed. btw 14:57 CBC with Diff Reviewed. btw 18:02 [facility] Payment Agreement was scanned into [employer] and attached to record. [email or web address] 19:32 ED course: dr veloz faxed formal report of ct abd/p for fu mlg. ml 20:15 T-Sheet-- Draft Copy was scanned into [employer] and attached to record. klr 10/20 08:57 ECG/EKG was scanned into [employer] and attached to record. gb Administered Medications: 10/19 12:09 Drug: Diatrizoate Meglumine & Sodium 10 ml [diatrizoate meglumine and diat.sodium 66 kr3 %-10 % oral solution (10 mL)] Route: PO; 12:10 Drug: Metoclopramide 20 mg [metoclopramide 5 mg/mL injection solution] Route: IV; Rate: jo3 80 mg/hr; Infused Over: 15 mins; Site: right antecubital; 12:35 Follow up: IV Status: Completed infusion kr3 12:10 Drug: diphenhydrAMINE 50 mg [diphenhydramine 50 mg/mL injection solution (1 mL)] Route: jo3 IVP; Site: right antecubital; 12:35 Follow up: Response: Anxiety is improved kr3 12:11 Drug: NS 0.9% 1000 ml [sodium chloride 0.9 % intravenous solution] Route: IV; Rate: jo3 bolus; Site: right antecubital; 13:20 Follow up: IV Status: Completed infusion; IV Intake: 1000ml kr3 13:30 Follow up: IV Status: Completed infusion; IV Intake: 1000ml kr3 12:45 Drug: Diatrizoate Meglumine & Sodium 10 ml [diatrizoate meglumine and diat.sodium 66 jo3 %-10 % oral solution (10 mL)] Route: PO; Signatures: Dispatcher [employer] EDMS Corinne Banks MD MD ml Susan Munoz, Reg Reg gb Jez Cole, Reg Reg lg Dolly El,RN RN kr3 Reyna Valdez,RN RN jo3 Gallo Carlos PA PA micaw Reyna Hong, RN RN jc4 Gracie Fernandez, Reg Reg ks16 Deborah Reardon The chart was reviewed and I authenticate all verbal orders and agree with the evaluation and treatment provided.Corrections: (The following items were deleted from the chart) 12:11 11:58 CARDIAC MARKER PANEL+LAB ordered. EDNM EDNM Attachments: 11:58 [facility] Payment Agreement lg 18:02 [facility] Payment Agreement [email or web address] 20:15 T-Sheet-- Draft Copy klr 10/20 08:57 ECG/EKG gb Chart Complete MTDD
--- NOTE | 2016-10-22 11:17 | EDDOCDS ---
Nurse's Notes [facility] Name: Kacy Goncalves Age: 41 yrs Sex: Male : 1975 Arrival Date: 10/19/2016 Time: 11:28 Bed I5 / M5 Private MD: Steven Veloz D Diagnosis: Epigastric pain;Generalized abdominal pain Presentation: 10/19 11:33 Presenting complaint: Patient states: was seen here two days ago and was diagnosed with jc4 gastroenteritis. States is not feeling any better. Vomited 8-10 times yesterday. "My stomach is bothering me bad, my stomach is bloated and it's hard to get a full breath, and with everything going on I'm having really bad anxiety". Adult Sepsis Screening: The patient does not have new or worsening altered mentation. Patient's respiratory rate is less than 22. Systolic blood pressure is greater than 100. Patient has a qSOFA score of 0- Negative Sepsis Screen. Suicide/Homicide risk assessment- the patient denies having any suicidal and/or homicidal ideations and does not present with any other emotional, behavioral or mental health complaints. Status: Patient is not a servicenow administrator developer or dependent. Transition of care: patient was not received from another setting of care. 11:33 Acuity: SIMÓN Level 3 jc4 11:33 Method Of Arrival: Walkin/Carried/Asstd jc4 Triage Assessment: 11:41 General: Appears ill. EENT: Reports "I've got some sort of infection from my nose". GI: jc4 Reports nausea. 11:41 Pain: Pain currently is 7 out of 10 on a pain scale. HIV screening NA for this visit jc4 Offered previously. Historical: - Allergies: Amoxicillin (Hives); Aspirin (Vomit); BACLOFEN (SOB); Coconut (Anaphylaxis); Erythromycin (Upset stomach); Latex (Hives); muscle relaxers (bad reaction); PENICILLINS (Rash); Strawberries (Hives); - Home Meds: 1. albuterol sulfate 90 mcg/actuation Inhl HFAA 1 puff every 6 hours as needed (Last dose: Unknown) 2. Klonopin 0.5 mg Oral tab 1 tab 2 times per day has run out 5 days ago 3. Zoloft 100 mg Oral tab 1 tab once daily (Last dose: 10/19/2016 08:00) 4. omeprazole 40 mg Oral cpDR 1 cap once daily (Last dose: 10/19/2016 08:00) 5. Remeron Oral Unknown once daily ran out 1 week ago 6. Ambien Unknown Oral Has been taking 2-3 times daily so "I can rest" - PMHx: Anxiety; Bipolar disorder; Chronic Back pain; Degenerative disc disease; Depression; Epilepsy; GERD; Hepatitis C; OCD; PTSD; TBI; Irritable bowel syndrome; sternal fracture; right wrist fracture; right rib fractures; bilateral leg fractures; - PSHx: back surgery; - Social history: Smoking status: Patient uses tobacco products, light tobacco smoker. Patient uses street drugs, used "[place] [address]" and stopped drinking on 10/15. "I was drinking 8-10 beers every day", No barriers to communication noted, The patient speaks fluent Greek. - Family history: Not pertinent. - : The pt / caregiver states he / she is not on anticoagulants. Home medication list is obtained from the patient. - Exposure Risk Screening:: None identified. Screenin:36 Screening information is obtained from the patient. Fall risk: No risks identified. kr3 Assistance ADL's: requires no assistance with activities of daily living. Abuse/DV Screen: The patient / caregiver reports he/she is: not in a situation that causes fear, pain or injury. Nutritional screening: No deficits noted. Advance Directives: Currently, there is no health care proxy. home support is adequate. 13:04 Screening information is obtained from the patient. Primary language is Greek. Fall jam1 risk: No risks identified. Assistance ADL's: requires no assistance with activities of daily living. Abuse/DV Screen: The patient / caregiver reports he/she is: not in a situation that causes fear, pain or injury. Nutritional screening: No deficits noted. Exposure Risk Screening: None identified. Advance Directives: Currently, there is no health care proxy. There is no active DNR order. There is no living will. There is no Power of Through Freight Engineer. Advance directive information has not previously been placed in an [facility] medical record. Further advance directive information is declined. home support is adequate. Assessment: 12:00 General: Appears comfortable, Behavior is anxious, cooperative. Neurological: Level of jo3 Consciousness is awake, alert, Oriented to person, place, time. Cardiovascular: No deficits noted. Respiratory: Airway is patent Respiratory effort is even, unlabored. GI: Abdomen is non- distended Bowel sounds present X 4 quads. Abd is soft X 4 quads Abd is tender to palpation in epigastric area. Derm: Skin is intact, Skin is clammy, Skin is normal, Skin temperature is cool. 12:35 General: Appears comfortable, reports anxiety has improved with medications. kr3 Neurological: Level of Consciousness is awake, alert. Respiratory: Respiratory effort is even, unlabored. 13:30 Reassessment: Patient appears in no apparent distress at this time. Neurological: Level kr3 of Consciousness is awake, alert. Respiratory: Respiratory effort is even, unlabored. Derm: Skin is normal. 13:55 Reassessment: Patient appears in no apparent distress at this time. General: Taken to jo3 CT scan at this time. Tolerated well. Awaiting results. Aware of plan of care . Neurological: Level of Consciousness is awake, alert, Oriented to person, place, time. Cardiovascular: No deficits noted. Respiratory: Airway is patent Respiratory effort is even, unlabored. 15:06 General: Appears in no apparent distress, Behavior is anxious, cooperative. General: Pt jo3 requesting anxiety medication. Provider notified. Awaiting disposition at this time. Aware of plan of care . Neurological: No deficits noted. Respiratory: Airway is patent Respiratory effort is even, unlabored. Vital Signs: 11:32 BP 149 / 92; Pulse 114; Resp 20; Pulse Ox 96% ; Weight 106.14 kg; Height 5 ft. 8 in. elp (172.72 cm); Pain 7/10; 12:14 Temp 95.8(TE); jc4 15:04 BP 144 / 92; Pulse 97; Resp 20; Temp 96.4; Pulse Ox 97% ; Pain 5/10; jam1 11:32 Body Mass Index 35.58 (106.14 kg, 172.72 cm) [facility] Vitals: 11:32 Log In Time: October 19, 2016 at 11:30. [facility] ED Course: 11:31 Patient visited by Ines Ponce PCA. elp 11:31 Steven Veloz is Private Physician. elp 11:31 Patient moved to Waiting el 11:32 Patient visited by Ines Ponce PCA. elp 11:32 Patient moved to Pre RCE elp 11:35 Triage Initiated jc4 11:43 Patient moved to Triage 2 jc4 11:45 Blaine Carlos PA is PHCP. btw 11:45 Corinne Banks MD is Attending Physician. btw 11:45 Patient visited by Blaine Carlos PA. btw 11:56 Patient moved to I5 / M5 js13 11:58 [facility] Payment Agreement was scanned into [employer] and attached to record. lg 12:00 Inserted saline lock: 18 gauge in right antecubital area. Labs drawn. (by ED staff). jo3 Sent per order to lab. 12:10 BNP Sent. jo3 12:10 D-Dimer Quant Sent. jo3 12:10 Drug Eval Toxicology ED Only Sent. jo3 12:10 ETOH Sent. jo3 12:10 Amylase Sent. jo3 12:10 Basic Metabolic Profile Sent. jo3 12:11 CBC with Diff Sent. jo3 12:11 Lipase Sent. jo3 12:11 Liver Profile Sent. jo3 12:35 The patient / caregiver is instructed regarding the plan of care and ED course. Patient byron3 has correct armband on for positive identification. Placed in gown. Bed in low position. Call light in reach. Side rails up X 1. 12:36 Patient visited by Dolly El RN. kr3 12:36 CARDIAC MARKER PANEL Sent. kr3 13:04 Patient has correct armband on for positive identification. Placed in gown. Bed in low jam1 position. Call light in reach. Side rails up X 1. Door closed. 13:06 Patient visited by Reyna Valdez RN. jo3 13:07 Patient visited by Reyna Valdez,JULIO. jo3 13:16 Chest, 2 View (pa\\E\\lat) Returned. EDMS 13:29 Urinalysis Sent. kr3 13:56 Patient visited by Reyna Valdez RN. jo3 14:03 Patient visited by Tsering Tucker PCA. jam1 14:03 PT WALKING AROUND ROOM. jam1 15:08 Patient visited by Reyna Valdez,JULIO. jo3 15:20 Steven Veloz is Referral Physician. btw 15:28 Discontinued lock intact, bleeding controlled, pressure dressing applied, No kr3 redness/swelling at site. No procedures done that require assistance. 17:10 CT ABD & PELVIS: IV and Oral Contrast Returned. EDMS 18:02 [facility] Payment Agreement was scanned into [employer] and attached to record. ks16 20:15 T-Sheet-- Draft Copy was scanned into [employer] and attached to record. klr 23:42 EKG-ADULT Returned. EDMS 10/20 08:57 ECG/EKG was scanned into [employer] and attached to record. gb Administered Medications: 10/19 12:09 Drug: Diatrizoate Meglumine & Sodium 10 ml [diatrizoate meglumine and diat.sodium 66 kr3 %-10 % oral solution (10 mL)] Route: PO; 12:10 Drug: Metoclopramide 20 mg [metoclopramide 5 mg/mL injection solution] Route: IV; Rate: jo3 80 mg/hr; Infused Over: 15 mins; Site: right antecubital; 12:35 Follow up: IV Status: Completed infusion kr3 12:10 Drug: diphenhydrAMINE 50 mg [diphenhydramine 50 mg/mL injection solution (1 mL)] Route: jo3 IVP; Site: right antecubital; 12:35 Follow up: Response: Anxiety is improved kr3 12:11 Drug: NS 0.9% 1000 ml [sodium chloride 0.9 % intravenous solution] Route: IV; Rate: jo3 bolus; Site: right antecubital; 13:20 Follow up: IV Status: Completed infusion; IV Intake: 1000ml kr3 13:30 Follow up: IV Status: Completed infusion; IV Intake: 1000ml kr3 12:45 Drug: Diatrizoate Meglumine & Sodium 10 ml [diatrizoate meglumine and diat.sodium 66 jo3 %-10 % oral solution (10 mL)] Route: PO; Intake: 13:20 IV: 1000.00ml; Total: 1000.00ml. kr3 13:30 IV: 1000.00ml; Total: 2000.00ml. kr3 Order Results: Lab Order: Amylase; SPEC'M 10/19/16 12:03 Test: AMYLASE; Value: 66; Range: 25-115; Units: U/L; Status: F Lab Order: Basic Metabolic Profile; SPEC'M 10/19/16 12:03 Test: GLUCOSE, FASTING; Value: 117; Range: 70-105; Abnormal: Above high normal; Units: MG/DL; Status: F Test: BLOOD UREA NITROGEN; Value: 17; Range: 7-18; Units: MG/DL; Status: F Test: CREATININE FOR GFR; Value: 1.08; Range: 0.70-1.30; Units: MG/DL; Status: F Test: GLOMERULAR FILTRATION RATE; Value: > 60.0; Range: >60; Status: F Test: SODIUM LEVEL; Value: 138; Range: 136-145; Units: MEQ/L; Status: F Test: POTASSIUM SERUM; Value: 4.0; Range: 3.5-5.1; Units: MEQ/L; Status: F Test: CHLORIDE LEVEL; Value: 100; Range: 98-107; Units: MEQ/L; Status: F Test: CARBON DIOXIDE LEVEL; Value: 28; Range: 21-32; Units: MEQ/L; Status: F Test: ANION GAP; Value: 10; Range: 8-16; Units: MEQ/L; Status: F Test: CALCIUM LEVEL; Value: 9.3; Range: 8.5-10.1; Units: MG/DL; Status: F Test Note: ; Units are mL/min/1.73 m2 Chronic Kidney Disease Staging per NKF: Stage I & II GFR >=60 Normal to Mildly Decreased Stage III GFR 30-59 Moderately Decreased Stage IV GFR 15-29 Severely Decreased Stage V GFR <15 Very Little GFR Left ESRD GFR <15 on [employer]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 Lab Order: CBC with Diff; SPEC'M 10/19/16 12:03 Test: WHITE BLOOD COUNT; Value: 9.7; Range: 4.0-10.0; Units: K/mm3; Status: F Test: RED BLOOD COUNT; Value: 6.08; Range: 4.30-6.10; Units: M/mm3; Status: F Test: HEMOGLOBIN; Value: 19.0; Range: 14.0-18.0; Abnormal: Above high normal; Units: g/dl; Status: F Test: HEMATOCRIT; Value: 55.0; Range: 42.0-52.0; Abnormal: Above high normal; Units: %; Status: F Test: MEAN CORPUSCULAR VOLUME; Value: 90.4; Range: 80.0-96.0; Units: fl; Status: F Test: MEAN CORPUSCULAR HEMOGLOBIN; Value: 31.3; Range: 27.0-33.0; Units: pg; Status: F Test: MEAN CORPUSCULAR HGB CONC; Value: 34.6; Range: 32.0-36.5; Units: g/dl; Status: F Test: RED CELL DISTRIBUTION WIDTH; Value: 13.8; Range: 11.5-14.5; Units: %; Status: F Test: PLATELET COUNT, AUTOMATED; Value: 189; Range: 150-450; Units: k/mm3; Status: F Test: NEUTROPHILS %; Value: 80.1; Range: 36.0-66.0; Abnormal: Above high normal; Units: %; Status: F Test: LYMPH %; Value: 9.9; Range: 24.0-44.0; Abnormal: Below low normal; Units: %; Status: F Test: MONO %; Value: 5.9; Range: 0.0-5.0; Abnormal: Above high normal; Units: %; Status: F Test: EOS %; Value: 1.3; Range: 0.0-3.0; Units: %; Status: F Test: BASO %; Value: 1.3; Range: 0.0-1.0; Abnormal: Above high normal; Units: %; Status: F Test: LARGE UNSTAINED CELL %; Value: 1.3; Range: 0.0-4.0; Units: %; Status: F Test: NEUTROPHILS #; Value: 7.7; Range: 1.8-7.7; Units: K/mm3; Status: F Test: LYMPH #; Value: 1.0; Range: 1.5-4.5; Abnormal: Below low normal; Units: K/mm3; Status: F Test: MONO #; Value: 0.6; Range: 0.0-0.8; Units: K/mm3; Status: F Test: EOS #; Value: 0.1; Range: 0.0-0.50; Units: K/mm3; Status: F Test: BASO #; Value: 0.1; Range: 0.0-0.2; Units: K/mm3; Status: F Test: LARGE UNSTAINED CELL #; Value: 0.1; Range: 0.0-0.4; Units: K/mm3; Status: F Lab Order: Lipase; SPEC' 10/19/16 12:03 Test: LIPASE; Value: 161; Range: 73-393; Units: U/L; Status: F Lab Order: Liver Profile; [facility]' 10/19/16 12:03 Test: AST/SGOT; Value: 37; Range: 15-37; Units: U/L; Status: F Test: ALT/SGPT; Value: 50; Range: 12-78; Units: U/L; Status: F Test: ALKALINE PHOSPHATASE; Value: 98; Range: 45-117; Units: U/L; Status: F Test: BILIRUBIN,TOTAL; Value: 0.7; Range: 0.2-1.0; Units: MG/DL; Status: F Test: BILIRUBIN,DIRECT; Value: 0.3; Range: 0.0-0.2; Abnormal: Above high normal; Units: MG/DL; Status: F Test: TOTAL PROTEIN; Value: 8.5; Range: 6.4-8.2; Abnormal: Above high normal; Units: GM/DL; Status: F Test: ALBUMIN; Value: 4.3; Range: 3.2-5.2; Units: GM/DL; Status: F Test: ALBUMIN/GLOBULIN RATIO; Value: 1.02; Range: 1.00-1.93; Status: F Lab Order: Urinalysis; [facility]' 10/19/16 13:27 Test: APPEARANCE, URINE; Value: CLEAR; Range: CLEAR; Status: F Test: COLOR, URINE; Value: YELLOW; Range: YELLOW; Status: F Test: PH,URINE; Value: 6.0; Range: 5.0-9.0; Units: UNITS; Status: F Test: SPECIFIC GRAVITY URINE AUTO; Value: 1.018; Range: 1.002-1.035; Status: F Test: PROTEIN, URINE AUTO; Value: 1+; Range: NEGATIVE; Abnormal: Above high normal; Units: mg/dL; Status: F Test: GLUCOSE, URINE (UA) AUTO; Value: NEGATIVE; Range: NEGATIVE; Units: mg/dL; Status: F Test: KETONE, URINE AUTO; Value: NEGATIVE; Range: NEGATIVE; Units: mg/dL; Status: F Test: UROBILINOGEN, URINE AUTO; Value: 0.2; Range: 0.0-2.0; Units: mg/dL; Status: F Test: BILIRUBIN, URINE AUTO; Value: NEGATIVE; Range: NEGATIVE; Status: F Test: NITRITE, URINE AUTO; Value: NEGATIVE; Range: NEGATIVE; Status: F Test: LEUKOCYTE ESTERASE, URINE AUTO; Value: NEGATIVE; Range: NEGATIVE; Status: F Test: BLOOD, URINE BLOOD; Value: NEGATIVE; Range: NEGATIVE; Status: F Test: WBC, URINE AUTO; Value: 1; Range: 0-3; Units: /HPF; Status: F Test: RBC, URINE AUTO; Value: 2; Range: 0-3; Units: /HPF; Status: F Test: BACTERIA, URINE AUTO; Value: NEGATIVE; Range: NEGATIVE; Status: F Test: SQUAMOUS EPITHELIAL CELL UR AU; Value: 0; Range: 0-6; Units: /HPF; Status: F Test: MUCUS, URINE; Value: SMALL; Range: NEGATIVE; Status: F Test: HYALINE CAST, URINE AUTO; Value: 0; Range: 0-1; Units: /LPF; Status: F Lab Order: ETOH; SPEC'M 10/19/16 12:03 Test: ETHYL ALCOHOL (ETHANOL); Value: < 0.003; Range: 0.000-0.010; Units: %; Status: F Lab Order: Drug Eval Toxicology ED Only; SPEC'M 10/19/16 13:27 Test: AMPHETAMINES LEVEL URINE; Value: NEGATIVE; Range: NEGATIVE; Status: F Test: BARBITURATES URINE; Value: NEGATIVE; Range: NEGATIVE; Status: F Test: BENZODIAZEPINES URINE; Value: NEGATIVE; Range: NEGATIVE; Status: F Test: CANNABINOIDS URINE; Value: NEGATIVE; Range: NEGATIVE; Status: F Test: COCAINE METABOLITE URINE; Value: NEGATIVE; Range: NEGATIVE; Status: F Test: METHADONE URINE; Value: NEGATIVE; Range: NEGATIVE; Status: F Test: OPIATES URINE; Value: NEGATIVE; Range: NEGATIVE; Status: F Test: TRICYCLIC ANTIDEPRESS URINE; Value: POSITIVE; Range: NEGATIVE; Abnormal: Above high normal; Status: F Test Note: ; ALL PRESUMPTIVE POSITIVE FINDINGS ARE UNCONFIRMED NORMAL VALUES THRESHOLD IN NG/ML AMPHETAMINES 1000 METHAMPHETAMINES 1000 BARBITURATES 300 BENZODIAZEPINES 300 CANNABINOIDS (THC) 50 COCAINE METABOLITE 300 METHADONE 300 OPIATES 300 PHENCYCLIDINE 25 TRICYCLIC ANTIDEPRESSANTS 1000 RESULTS ARE FOR MEDICAL PURPOSES ONLY. ALL URINE SPECIMENS WILL BE SAVED FOR 3 DAYS. IF CONFIRMATION OF A PRESUMPTIVE POSTIVE SCREEN RESULT IS DESIRED, CALL CHEMISTRY ([phone]) AND REQUEST URINE TO BE SENT TO REFERENCE LAB. FOR A LIST OF CLOSELY RELATED COMPOUNDS PLEASE CALL THE LAB. Lab Order: D-Dimer Quant; SPEC'M 10/19/16 12:03 Test: D-DIMER QUANT; Value: < 270.0; Range: <500; Units: ng/ml; Status: F Lab Order: BNP; SPEC'M 10/19/16 12:03 Test: BRAIN NATRIURETIC PEPTIDE; Value: < 5.0; Range: <100; Units: PG/ML; Status: F Lab Order: CARDIAC MARKER PANEL; SPEC' 10/19/16 12:03 Test: CPK CREATINE PHOSPHOKINASE; Value: 171; Range: 39-308; Units: U/L; Status: F Test: CK-MB VALUE MASS; Value: 1.0; Range: 0.0-3.6; Units: NG/ML; Status: F Test: MB/CK RELATIVE INDEX; Value: 0.58; Range: < OR =4; Status: F Test: TROPONIN I; Value: < 0.02; Range: < 0.10; Units: NG/ML; Status: F Test Note: ; DIAGNOSIS CRITERIA MMB ng/ml Relative Index (RI) NON-AMI < or = 5 N/A CASTRO ZONE > 5 < or = 4 AMI > 5 > 4 Radiology Order: CT ABD & PELVIS: IV and Oral Contrast Test: CT ABD & PELVIS: IV and Oral Contrast REASON FOR EXAMINATION: Abdomen Pain; CT study of the abdomen and pelvis with IV and oral contrast:; ; History: Abdominal pain periumbilical region.; ; CT contrast dose: 100 mL of Isovue 370 is administered intravenously.; ; CT findings: Preliminary digital correctional cook radiograph is unremarkable. The lung; bases are clear.; ; The liver and the spleen are homogeneous in texture. The spleen is somewhat; enlarged in this patient measuring 17 cm in greatest anteroposterior span. No; adrenal lesion is seen on either side. The pancreas is unremarkable. The; gallbladder appears mildly distended measuring 10.0 cm in diameter. It is; homogeneous however and normal in density. The kidneys enhance symmetrically are; morphologically intact. Normal caliber aorta is seen. No retroperitoneal mass; or adenopathy is seen. Small and large intestinal bowel loops are unremarkable.; ; Seminal vesicles, prostate and urinary bladder are unremarkable. A normal; appendix is visible in the right lower quadrant. No abdominal wall defect is; seen. No bony destructive lesion is appreciated. There are multiple bone; islands in the proximal femurs and pelvic bones.; ; Impression:; ; Splenomegaly and mildly dilated gallbladder. Normal appendix. 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 .; ; Comparison study: October 17, 2016 .; ; Findings: The lungs are well inflated and free of infiltrate. The pleural; angles are sharp. The heart size is normal. Pulmonary vasculature is not; increased. No significant bony abnormality is seen.; ; Impression:; ; Negative chest x-ray.; ; ; Signed by; Moses Georges MD 10/19/2016 12:46 P; Outcome: 15:21 Discharge ordered by Provider. btw 15:27 Discharge Assessment: patient administered narcotics - no. The following High Risk kr3 Discharge criteria are identified: None. Discharged to home ambulatory. Condition: stable. Discharge instructions given to patient, Instructed on discharge instructions, follow up and referral plans. medication usage, diet, Demonstrated understanding of instructions, medications, Pt was receptive of discharge instructions/ teaching. Prescriptions given X 1. CT Study completed. Property sent home with patient. 15:28 Patient left the ED. kr3 Signatures: Dispatcher [employer] EDMS Tsering Tucker, CURB SETTER CURB SETTER jam1 Susan Munoz, Reg Reg gb Jez oCle, Reg Reg lg Dolly El,RN RN kr3 Reyna Valdez,RN RN jo3 Blaine Carlos PA PA btw Castle, Jennifer, RN RN jc4 Reyna Reyes,RN RN js13 Ines Ponce, CURB SETTER CURB SETTER haroonp Gracie Fernandez, Reg Reg ks16 Deborah Reardon Corrections: (The following items were deleted from the chart) 12:11 12:10 CARDIAC MARKER PANEL+LAB sent. 3 EDCA Chart Complete MTDD
== END 2016-10-19 15:28 | disposition home or self-care (01) ==
LOC: M ED 11:28
DX: K29.50 Unspecified chronic gastritis without bleeding (principal); R06.02 Shortness of breath; B19.20 Unspecified viral hepatitis C without hepatic coma; G40.909 Epilepsy, unspecified, not intractable, without status epilepticus; K21.9 Gastro-esophageal reflux disease without esophagitis; F41.9 Anxiety disorder, unspecified; F32.9 Major depressive disorder, single episode, unspecified; F43.10 Post-traumatic stress disorder, unspecified; F42.9 Obsessive-compulsive disorder, unspecified; M51.9 Unspecified thoracic, thoracolumbar and lumbosacral intervertebral disc disorder; M54.9 Dorsalgia, unspecified; G89.29 Other chronic pain; Z87.820 Personal history of traumatic brain injury; K58.9 Irritable bowel syndrome, unspecified; Z87.828 Personal history of other (healed) physical injury and trauma; Z79.899 Other long term (current) drug therapy; Z88.0 Allergy status to penicillin; Z88.1 Allergy status to other antibiotic agents; Z88.8 Allergy status to other drugs, medicaments and biological substances; Z91.018 Allergy to other foods; Z91.040 Latex allergy status; F19.20 Other psychoactive substance dependence, uncomplicated; F17.210 Nicotine dependence, cigarettes, uncomplicated
CPT/HCPCS: 36415; 71020; 74177; 80048; 80076; 80306; 81001; 82150; 82550; 82553; 83690; 83880; 85025; 85379; 93005; 96361; 96365; 96375; 99284; G0480; J1200; J2765; Q9963; Q9967

== ENCOUNTER 2016-10-21 15:38 | Emergency (ER) | payer OTHER ==
[2016-10-21] MEDS ORDERED: LORazepam 1 MG TAB As Ordered ONE (16:44)
--- NOTE | 2016-10-21 16:54 | EDDOCDS ---
Physician Documentation [facility] Name: Link Goncalves Age: 41 yrs Sex: Male : 1975 Arrival Date: 10/21/2016 Time: 15:38 Bed 30 Private MD: Steven Veloz D Disposition: 10/21/16 16:28 Discharged to Home/Self Care. Impression: Anxiety disorder, unspecified, Sedative, hypnotic or anxiolytic dependence, uncomplicated. - Condition is Stable. - Prescriptions for Ativan 0.5 mg Oral Tablet - take 1 tablet by ORAL route once daily As needed; 2 tablet. - Medication Reconciliation, Local Pharmacy Hours form. - Follow up: Private Physician; When: Call to arrange an appointment; Reason: Recheck today's complaints. - Problem is chronic. - Symptoms are unchanged. Historical: - Allergies: Amoxicillin (Hives); Aspirin (Vomit); BACLOFEN (SOB); Erythromycin (Upset stomach); Coconut (Anaphylaxis); Latex (Hives); PENICILLINS (Rash); Strawberries (Hives); muscle relaxers (bad reaction); - Home Meds: 1. albuterol sulfate 90 mcg/actuation Inhl HFAA 1 puff every 6 hours as needed (Last dose: Unknown) 2. Klonopin 0.5 mg Oral tab 1 tab 2 times per day has run out over 7 days ago 3. Remeron Oral Unknown once daily ran out 1 week ago 4. Zoloft 100 mg Oral tab 1 tab once daily (Last dose: 10/20/2016) 5. Ambien Oral 1 tab nightly ran out of medication, recently was taking it 2-3 times a day to sleep 6. omeprazole 40 mg Oral cpDR 1 cap once daily (Last dose: 10/21/2016 07:00) - PMHx: Bipolar disorder; Degenerative disc disease; Depression; Epilepsy; GERD; Hepatitis C; Irritable bowel syndrome; OCD; PTSD; TBI; Anxiety; Chronic Back pain; bilateral leg fractures; right rib fractures; right wrist fracture; sternal fracture; - PSHx: back surgery; - Social history: Smoking status: Patient uses tobacco products, light tobacco smoker. No barriers to communication noted, The patient speaks fluent Sammarinese. - Family history: Not pertinent. - : The pt / caregiver states he / she is not on anticoagulants. Home medication list is obtained from the patient. - Exposure Risk Screening:: None identified. Vital Signs: 10/21 15:41 BP 148 / 100; Pulse 121; Resp 18 S; Temp 95.2(O); Pulse Ox 96% on R/A; Weight 106.14 kg gr2 / 234 lbs (M); Height 5 ft. 8 in. (172.72 cm) (M); Pain 4/10; 15:50 BP 138 / 88; Pulse 102; Resp 18; Temp 97.2(T); Pulse Ox 97% on R/A; mk4 15:41 Body Mass Index 35.58 (106.14 kg, 172.72 cm) gr2 MDM: 16:19 LORazepam 1 mg PO once ordered. cs11 Administered Medications: 16:48 Drug: LORazepam 1 mg [lorazepam 1 mg tablet (1 tabs)] Route: PO; mk4 16:52 Follow up: Response: Anxiety is improved mk4 Signatures: Reyna Hong RN RN jc4 Nathaniel Dudley DO DO cs11 Marcela Granados RN RN mk4 HIRA
--- NOTE | 2016-10-21 16:54 | EDDOCDS ---
Nurse's Notes [facility] Name: Link Goncalves Age: 41 yrs Sex: Male : 1975 Arrival Date: 10/21/2016 Time: 15:38 Bed 30 Private MD: Steven Veloz D Diagnosis: Anxiety disorder, unspecified;Sedative, hypnotic or anxiolytic dependence, uncomplicated Presentation: 10/21 15:43 Presenting complaint: Patient states: "I'm having severe anxiety. I'm having bad chest jc4 pains, and having trouble breathing. All my muscles in my body are severely tensed up. My left arm is tingling off and on. I saw my psychiatrist today but my medications won't be ready until Friday. I keep feeling like I have to throw up and I feel real gassy". Adult Sepsis Screening: The patient does not have new or worsening altered mentation. Patient's respiratory rate is less than 22. Systolic blood pressure is greater than 100. Patient has a qSOFA score of 0- Negative Sepsis Screen. Suicide/Homicide risk assessment- The patient reports that he/she has not been admitted to an inpatient mental health facility in the last 30 days. The patient reports that he/she does not have a recent or current history of substance abuse. The patient reports that he/she has a prior history of suicide attempt and/or organized plan. The patient reports that he/she has experienced a significant life altering event in the last 30 days. The patient reports that he/she has adequate social support. The patient reports he/she has significant chronic medical condition(s). Status: Patient is not a neuropsychology service director or dependent. Transition of care: patient was not received from another setting of care. 15:43 Acuity: SIMÓN Level 3 jc4 15:43 Method Of Arrival: Walkin/Carried/Asstd jc4 15:53 Mental Health Triage Level: Level 1- Pt displays no suicidal or homicidal ideations and jc4 does not appear to be a danger to self or others. Mental Health Triage Level:. Triage Assessment: 15:49 General: Appears distressed, Behavior is anxious. Pain: Pain currently is 8 out of 10 jc4 on a pain scale. HIV screening NA for this visit Offered previously. Historical: - Allergies: Amoxicillin (Hives); Aspirin (Vomit); BACLOFEN (SOB); Erythromycin (Upset stomach); Coconut (Anaphylaxis); Latex (Hives); PENICILLINS (Rash); Strawberries (Hives); muscle relaxers (bad reaction); - Home Meds: 1. albuterol sulfate 90 mcg/actuation Inhl HFAA 1 puff every 6 hours as needed (Last dose: Unknown) 2. Klonopin 0.5 mg Oral tab 1 tab 2 times per day has run out over 7 days ago 3. Remeron Oral Unknown once daily ran out 1 week ago 4. Zoloft 100 mg Oral tab 1 tab once daily (Last dose: 10/20/2016) 5. Ambien Oral 1 tab nightly ran out of medication, recently was taking it 2-3 times a day to sleep 6. omeprazole 40 mg Oral cpDR 1 cap once daily (Last dose: 10/21/2016 07:00) - PMHx: Bipolar disorder; Degenerative disc disease; Depression; Epilepsy; GERD; Hepatitis C; Irritable bowel syndrome; OCD; PTSD; TBI; Anxiety; Chronic Back pain; bilateral leg fractures; right rib fractures; right wrist fracture; sternal fracture; - PSHx: back surgery; - Social history: Smoking status: Patient uses tobacco products, light tobacco smoker. No barriers to communication noted, The patient speaks fluent Greek. - Family history: Not pertinent. - : The pt / caregiver states he / she is not on anticoagulants. Home medication list is obtained from the patient. - Exposure Risk Screening:: None identified. Screenin:50 Screening information is obtained from the patient. Fall risk: No risks identified. mk4 Assistance ADL's: requires no assistance with activities of daily living. Abuse/DV Screen: The patient / caregiver reports he/she is: not in a situation that causes fear, pain or injury. Nutritional screening: No deficits noted. Advance Directives: Currently, there is no health care proxy. There is no active DNR order. There is no living will. There is no Power of Production Floater. Advance directive information has not previously been placed in an [facility] medical record. Further advance directive information is declined. home support is adequate. 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 Neurological: Level of Consciousness is awake, alert. Respiratory: Airway is patent Respiratory effort is even, unlabored, Respiratory pattern is regular. Vital Signs: 15:41 BP 148 / 100; Pulse 121; Resp 18 S; Temp 95.2(O); Pulse Ox 96% on R/A; Weight 106.14 kg gr2 (M); Height 5 ft. 8 in. (172.72 cm) (M); Pain 4/10; 15:50 BP 138 / 88; Pulse 102; Resp 18; Temp 97.2(T); Pulse Ox 97% on R/A; mk4 15:41 Body Mass Index 35.58 (106.14 kg, 172.72 cm) gr2 Vitals: 15:41 Log In Time: October 21, 2016 at 15:41. RN notified that patient meets Red Flag gr2 criteria. ED Course: 15:40 Patient visited by Christy Desai. gr2 15:40 Steven Veloz is Private Physician. gr2 15:40 Patient moved to Waiting gr2 15:42 Patient visited by Christy Desai. gr2 15:42 Patient visited by Christy Desai. gr2 15:42 Patient moved to Pre RCE gr2 15:46 Triage Initiated jc4 15:50 Patient moved to 30 jc4 15:50 The patient / caregiver is instructed regarding the plan of care and ED course. mk4 15:50 No IV's were initiated during this patient's visit. No procedures done that require mk4 assistance. 15:52 Nathaniel Dudley DO is Attending Physician. cs11 15:52 Patient visited by Nathaniel Dudley DO. cs11 16:24 Patient visited by Marcela Granados RN. mk4 Administered Medications: 16:48 Drug: LORazepam 1 mg [lorazepam 1 mg tablet (1 tabs)] Route: PO; mk4 16:52 Follow up: Response: Anxiety is improved mk4 Order Results: There are currently no results for this order. Outcome: 16:28 Discharge ordered by Provider. 11 16:52 Discharge Assessment: Patient awake, alert and oriented x 3. No cognitive and/or mk4 functional deficits noted. Patient verbalized understanding of disposition instructions. Patient awake and alert. patient administered narcotics - no. The following High Risk Discharge criteria are identified: None. Discharged to home ambulatory. Condition: stable. No special radiology studies were completed. Property sent home with patient. 16:52 Patient left the ED. mk4 Signatures: Reyna Hong, RN RN jc4 Nathaniel Dudley DO DO cs11 Christy Desai gr2 Marcela Granados RN RN mk4 MTDD
[2016-10-22] MEDS ORDERED: METAL LOCK LOOP XX ONE (02:58)
--- NOTE | 2016-10-23 17:54 | EDDOCDS ---
Physician Documentation [facility] Name: Link Goncalves Age: 41 yrs Sex: Male : 1975 Arrival Date: 10/21/2016 Time: 15:38 Bed 30 Private MD: Steven Veloz D Disposition: 10/21/16 16:28 Discharged to Home/Self Care. Impression: Anxiety disorder, unspecified, Sedative, hypnotic or anxiolytic dependence, uncomplicated. - Condition is Stable. - Prescriptions for Ativan 0.5 mg Oral Tablet - take 1 tablet by ORAL route once daily As needed; 2 tablet. - Medication Reconciliation, Local Pharmacy Hours form. - Follow up: Private Physician; When: Call to arrange an appointment; Reason: Recheck today's complaints. - Problem is chronic. - Symptoms are unchanged. Historical: - Allergies: Amoxicillin (Hives); Aspirin (Vomit); BACLOFEN (SOB); Erythromycin (Upset stomach); Coconut (Anaphylaxis); Latex (Hives); PENICILLINS (Rash); Strawberries (Hives); muscle relaxers (bad reaction); - Home Meds: 1. albuterol sulfate 90 mcg/actuation Inhl HFAA 1 puff every 6 hours as needed (Last dose: Unknown) 2. Klonopin 0.5 mg Oral tab 1 tab 2 times per day has run out over 7 days ago 3. Remeron Oral Unknown once daily ran out 1 week ago 4. Zoloft 100 mg Oral tab 1 tab once daily (Last dose: 10/20/2016) 5. Ambien Oral 1 tab nightly ran out of medication, recently was taking it 2-3 times a day to sleep 6. omeprazole 40 mg Oral cpDR 1 cap once daily (Last dose: 10/21/2016 07:00) - PMHx: Bipolar disorder; Degenerative disc disease; Depression; Epilepsy; GERD; Hepatitis C; Irritable bowel syndrome; OCD; PTSD; TBI; Anxiety; Chronic Back pain; bilateral leg fractures; right rib fractures; right wrist fracture; sternal fracture; - PSHx: back surgery; - Social history: Smoking status: Patient uses tobacco products, light tobacco smoker. No barriers to communication noted, The patient speaks fluent Honduran. - Family history: Not pertinent. - : The pt / caregiver states he / she is not on anticoagulants. Home medication list is obtained from the patient. - Exposure Risk Screening:: None identified. Vital Signs: 10/21 15:41 BP 148 / 100; Pulse 121; Resp 18 S; Temp 95.2(O); Pulse Ox 96% on R/A; Weight 106.14 kg gr2 / 234 lbs (M); Height 5 ft. 8 in. (172.72 cm) (M); Pain 4/10; 15:50 BP 138 / 88; Pulse 102; Resp 18; Temp 97.2(T); Pulse Ox 97% on R/A; mk4 15:41 Body Mass Index 35.58 (106.14 kg, 172.72 cm) gr2 MDM: 16:19 LORazepam 1 mg PO once ordered. cs11 10/22 04:11 T-Sheet-- Draft Copy was scanned into [employer] and attached to record. hs2 Administered Medications: 10/21 16:48 Drug: LORazepam 1 mg [lorazepam 1 mg tablet (1 tabs)] Route: PO; [facility] 16:52 Follow up: Response: Anxiety is improved 4 Signatures: Reyna Hong, RN RN jc4 Nathaniel Dudley DO DO cs11 Marcela Granados RN RN mk4 Arianna Khan, Reg Reg hs2 The chart was reviewed and I authenticate all verbal orders and agree with the evaluation and treatment provided.Attachments: 10/22 04:11 T-Sheet-- Draft Copy hs2 Chart Complete MTDD
--- NOTE | 2016-10-23 17:54 | EDDOCDS ---
Physician Documentation [facility] Name: Link Goncalves Age: 41 yrs Sex: Male : 1975 Arrival Date: 10/21/2016 Time: 15:38 Bed 30 Private MD: Steven Veloz D Disposition: 10/21/16 16:28 Discharged to Home/Self Care. Impression: Anxiety disorder, unspecified, Sedative, hypnotic or anxiolytic dependence, uncomplicated. - Condition is Stable. - Prescriptions for Ativan 0.5 mg Oral Tablet - take 1 tablet by ORAL route once daily As needed; 2 tablet. - Medication Reconciliation, Local Pharmacy Hours form. - Follow up: Private Physician; When: Call to arrange an appointment; Reason: Recheck today's complaints. - Problem is chronic. - Symptoms are unchanged. Historical: - Allergies: Amoxicillin (Hives); Aspirin (Vomit); BACLOFEN (SOB); Erythromycin (Upset stomach); Coconut (Anaphylaxis); Latex (Hives); PENICILLINS (Rash); Strawberries (Hives); muscle relaxers (bad reaction); - Home Meds: 1. albuterol sulfate 90 mcg/actuation Inhl HFAA 1 puff every 6 hours as needed (Last dose: Unknown) 2. Klonopin 0.5 mg Oral tab 1 tab 2 times per day has run out over 7 days ago 3. Remeron Oral Unknown once daily ran out 1 week ago 4. Zoloft 100 mg Oral tab 1 tab once daily (Last dose: 10/20/2016) 5. Ambien Oral 1 tab nightly ran out of medication, recently was taking it 2-3 times a day to sleep 6. omeprazole 40 mg Oral cpDR 1 cap once daily (Last dose: 10/21/2016 07:00) - PMHx: Bipolar disorder; Degenerative disc disease; Depression; Epilepsy; GERD; Hepatitis C; Irritable bowel syndrome; OCD; PTSD; TBI; Anxiety; Chronic Back pain; bilateral leg fractures; right rib fractures; right wrist fracture; sternal fracture; - PSHx: back surgery; - Social history: Smoking status: Patient uses tobacco products, light tobacco smoker. No barriers to communication noted, The patient speaks fluent Filipino. - Family history: Not pertinent. - : The pt / caregiver states he / she is not on anticoagulants. Home medication list is obtained from the patient. - Exposure Risk Screening:: None identified. Vital Signs: 10/21 15:41 BP 148 / 100; Pulse 121; Resp 18 S; Temp 95.2(O); Pulse Ox 96% on R/A; Weight 106.14 kg gr2 / 234 lbs (M); Height 5 ft. 8 in. (172.72 cm) (M); Pain 4/10; 15:50 BP 138 / 88; Pulse 102; Resp 18; Temp 97.2(T); Pulse Ox 97% on R/A; mk4 15:41 Body Mass Index 35.58 (106.14 kg, 172.72 cm) gr2 MDM: 16:19 LORazepam 1 mg PO once ordered. cs11 10/22 04:11 T-Sheet-- Draft Copy was scanned into [employer]. and attached to record. hs2 Administered Medications: 10/21 16:48 Drug: LORazepam 1 mg [lorazepam 1 mg tablet (1 tabs)] Route: PO; [facility] 16:52 Follow up: Response: Anxiety is improved 4 Signatures: Reyna Hong, RN RN jc4 Nathaniel Dudley DO DO cs11 Marcela Granados RN RN mk4 Arianna Khan, Reg Reg hs2 The chart was reviewed and I authenticate all verbal orders and agree with the evaluation and treatment provided.Attachments: 10/22 04:11 T-Sheet-- Draft Copy hs2 Chart Complete MTDD
--- NOTE | 2016-10-23 17:54 | EDDOCDS ---
Nurse's Notes [facility] Name: Link Goncalves Age: 41 yrs Sex: Male : 1975 Arrival Date: 10/21/2016 Time: 15:38 Bed 30 Private MD: Steven Veloz D Diagnosis: Anxiety disorder, unspecified;Sedative, hypnotic or anxiolytic dependence, uncomplicated Presentation: 10/21 15:43 Presenting complaint: Patient states: "I'm having severe anxiety. I'm having bad chest jc4 pains, and having trouble breathing. All my muscles in my body are severely tensed up. My left arm is tingling off and on. I saw my psychiatrist today but my medications won't be ready until Friday. I keep feeling like I have to throw up and I feel real gassy". Adult Sepsis Screening: The patient does not have new or worsening altered mentation. Patient's respiratory rate is less than 22. Systolic blood pressure is greater than 100. Patient has a qSOFA score of 0- Negative Sepsis Screen. Suicide/Homicide risk assessment- The patient reports that he/she has not been admitted to an inpatient mental health facility in the last 30 days. The patient reports that he/she does not have a recent or current history of substance abuse. The patient reports that he/she has a prior history of suicide attempt and/or organized plan. The patient reports that he/she has experienced a significant life altering event in the last 30 days. The patient reports that he/she has adequate social support. The patient reports he/she has significant chronic medical condition(s). Status: Patient is not a well service pump equipment operator or dependent. Transition of care: patient was not received from another setting of care. 15:43 Acuity: SIMÓN Level 3 jc4 15:43 Method Of Arrival: Walkin/Carried/Asstd jc4 15:53 Mental Health Triage Level: Level 1- Pt displays no suicidal or homicidal ideations and jc4 does not appear to be a danger to self or others. Mental Health Triage Level:. Triage Assessment: 15:49 General: Appears distressed, Behavior is anxious. Pain: Pain currently is 8 out of 10 jc4 on a pain scale. HIV screening NA for this visit Offered previously. Historical: - Allergies: Amoxicillin (Hives); Aspirin (Vomit); BACLOFEN (SOB); Erythromycin (Upset stomach); Coconut (Anaphylaxis); Latex (Hives); PENICILLINS (Rash); Strawberries (Hives); muscle relaxers (bad reaction); - Home Meds: 1. albuterol sulfate 90 mcg/actuation Inhl HFAA 1 puff every 6 hours as needed (Last dose: Unknown) 2. Klonopin 0.5 mg Oral tab 1 tab 2 times per day has run out over 7 days ago 3. Remeron Oral Unknown once daily ran out 1 week ago 4. Zoloft 100 mg Oral tab 1 tab once daily (Last dose: 10/20/2016) 5. Ambien Oral 1 tab nightly ran out of medication, recently was taking it 2-3 times a day to sleep 6. omeprazole 40 mg Oral cpDR 1 cap once daily (Last dose: 10/21/2016 07:00) - PMHx: Bipolar disorder; Degenerative disc disease; Depression; Epilepsy; GERD; Hepatitis C; Irritable bowel syndrome; OCD; PTSD; TBI; Anxiety; Chronic Back pain; bilateral leg fractures; right rib fractures; right wrist fracture; sternal fracture; - PSHx: back surgery; - Social history: Smoking status: Patient uses tobacco products, light tobacco smoker. No barriers to communication noted, The patient speaks fluent Italian. - Family history: Not pertinent. - : The pt / caregiver states he / she is not on anticoagulants. Home medication list is obtained from the patient. - Exposure Risk Screening:: None identified. Screenin:50 Screening information is obtained from the patient. Fall risk: No risks identified. mk4 Assistance ADL's: requires no assistance with activities of daily living. Abuse/DV Screen: The patient / caregiver reports he/she is: not in a situation that causes fear, pain or injury. Nutritional screening: No deficits noted. Advance Directives: Currently, there is no health care proxy. There is no active DNR order. There is no living will. There is no Power of Comber Tender. Advance directive information has not previously been placed in an [facility] medical record. Further advance directive information is declined. home support is adequate. Assessment: 15:50 General: Appears in no apparent distress, Behavior is anxious, cooperative, HANDS mk4 TREMULOUS crisis clinician in with pt . Neurological: Level of Consciousness is awake, alert. Respiratory: Airway is patent Respiratory effort is even, unlabored, Respiratory pattern is regular. Vital Signs: 15:41 BP 148 / 100; Pulse 121; Resp 18 S; Temp 95.2(O); Pulse Ox 96% on R/A; Weight 106.14 kg gr2 (M); Height 5 ft. 8 in. (172.72 cm) (M); Pain 4/10; 15:50 BP 138 / 88; Pulse 102; Resp 18; Temp 97.2(T); Pulse Ox 97% on R/A; mk4 15:41 Body Mass Index 35.58 (106.14 kg, 172.72 cm) gr2 Vitals: 15:41 Log In Time: October 21, 2016 at 15:41. RN notified that patient meets Red Flag gr2 criteria. ED Course: 15:40 Patient visited by Christy Desai. gr2 15:40 Steven Veloz is Private Physician. gr2 15:40 Patient moved to Waiting gr2 15:42 Patient visited by Christy Desai. gr2 15:42 Patient visited by Christy Desai. gr2 15:42 Patient moved to Pre RCE gr2 15:46 Triage Initiated jc4 15:50 Patient moved to 30 jc4 15:50 The patient / caregiver is instructed regarding the plan of care and ED course. mk4 15:50 No IV's were initiated during this patient's visit. No procedures done that require mk4 assistance. 15:52 Nathaniel Dudley DO is Attending Physician. cs11 15:52 Patient visited by Nathaniel Dudley DO. cs11 16:24 Patient visited by Marcela Granados RN. mk4 10/22 04:11 T-Sheet-- Draft Copy was scanned into [employer] and attached to record. hs2 Administered Medications: 10/21 16:48 Drug: LORazepam 1 mg [lorazepam 1 mg tablet (1 tabs)] Route: PO; mk4 16:52 Follow up: Response: Anxiety is improved mk4 Order Results: There are currently no results for this order. Outcome: 16:28 Discharge ordered by Provider. 11 16:52 Discharge Assessment: Patient awake, alert and oriented x 3. No cognitive and/or mk4 functional deficits noted. Patient verbalized understanding of disposition instructions. Patient awake and alert. patient administered narcotics - no. The following High Risk Discharge criteria are identified: None. Discharged to home ambulatory. Condition: stable. No special radiology studies were completed. Property sent home with patient. 16:52 Patient left the ED. mk4 Signatures: Reyna Hong, RN RN jc4 Nathaniel Dudley, DO cs11 Christy Desai gr2 Marcela Granados RN RN mk4 Arianna Khan, Reg Reg hs2 Chart Complete MTDD
== END 2016-10-21 16:52 | disposition home or self-care (01) ==
LOC: M ED 15:38
DX: F41.9 Anxiety disorder, unspecified (principal); F13.20 Sedative, hypnotic or anxiolytic dependence, uncomplicated; M51.35 Other intervertebral disc degeneration, thoracolumbar region; G40.909 Epilepsy, unspecified, not intractable, without status epilepticus; K21.9 Gastro-esophageal reflux disease without esophagitis; B18.2 Chronic viral hepatitis C; K58.9 Irritable bowel syndrome, unspecified; F43.12 Post-traumatic stress disorder, chronic; G89.29 Other chronic pain; M54.9 Dorsalgia, unspecified; F60.5 Obsessive-compulsive personality disorder; F17.210 Nicotine dependence, cigarettes, uncomplicated; Z87.820 Personal history of traumatic brain injury; Z92.240 Personal history of inhaled steroid therapy; Z79.899 Other long term (current) drug therapy; Z88.0 Allergy status to penicillin; Z88.1 Allergy status to other antibiotic agents; Z88.5 Allergy status to narcotic agent; Z88.6 Allergy status to analgesic agent; Z88.8 Allergy status to other drugs, medicaments and biological substances; Z91.018 Allergy to other foods

== ENCOUNTER 2016-10-24 21:39 | Emergency (ER) | payer OTHER ==
[~2016-10-24 21:39] MED LIST changes: -ERGO5000 PO; +ERGO500014 PO
--- NOTE | 2016-10-24 22:45 | EDDOCDS ---
Physician Documentation [facility] Name: Link Goncalves Age: 41 yrs Sex: Male : 1975 Arrival Date: 10/24/2016 Time: 21:39 Bed [facility] Private MD: Disposition: 10/24/16 22:34 Discharged to Home/Self Care. Impression: Inadequate social skills, not elsewhere classified, Other disorders of adult personality and behavior. - Condition is Stable. - Medication Reconciliation, Local Pharmacy Hours form. - Follow up: Referral list, As provided by [facility]; When: Call to arrange an appointment; Reason: Recheck today's complaints. - Problem is chronic. - Symptoms have improved. Historical: - Allergies: Amoxicillin (Hives); Aspirin (Vomit); BACLOFEN (SOB); Coconut (Anaphylaxis); Erythromycin (Upset stomach); Latex (Hives); muscle relaxers (bad reaction); PENICILLINS (Rash); Strawberries (Hives); - Home Meds: 1. Ambien 10 mg oral tab 1 tab once daily nightly 2. Klonopin 0.5 mg Oral tab 1 tab 2 times per day 3. omeprazole 40 mg Oral cpDR 1 cap once daily 4. Remeron Oral Unknown once daily nightly 5. Zoloft 100 mg Oral tab 1 tab once daily - PMHx: Anxiety; bilateral leg fractures; Bipolar disorder; Chronic Back pain; Degenerative disc disease; Depression; Epilepsy; GERD; Hepatitis C; Irritable bowel syndrome; OCD; PTSD; right rib fractures; right wrist fracture; sternal fracture; TBI; - PSHx: back surgery; back; neck; sternum; Liver Biopsy; left,right leg; - Social history: Smoking status: Patient uses tobacco products, current every day smoker. Patient uses alcohol occasionally. No barriers to communication noted, The patient speaks fluent Peruvian. - Family history: Not pertinent. - : The pt / caregiver states he / she is not on anticoagulants. Home medication list is obtained from the patient, [employer] import data. - Exposure Risk Screening:: None identified. Vital Signs: 10/24 21:58 BP 134 / 95; Pulse 112; Resp 20; Temp 97.3(T); Pulse Ox 95% on R/A; Weight 55.34 kg / rw1 122 lbs (R); Height 5 ft. 8 in. (172.72 cm) (R); Pain 0/10; 21:58 Body Mass Index 18.55 (55.34 kg, 172.72 cm) rw1 MDM: 21:55 Consult PFS/PSA/Washroom Attendant ordered. cs11 22:42 Consult PFS/PSA/Washroom Attendant complete. rw1 Signatures: Navneet Kiser LPN LPN rw1 Nathaniel Dudley DO DO cs11 Kailee Castro,RN RN mlc MTDD
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
--- NOTE | 2016-10-26 23:46 | EDDOCDS ---
Physician Documentation [facility] Name: Link Goncalves Age: 41 yrs Sex: Male : 1975 Arrival Date: 10/24/2016 Time: 21:39 Bed [facility] Private MD: Disposition: 10/24/16 22:34 Discharged to Home/Self Care. Impression: Inadequate social skills, not elsewhere classified, Other disorders of adult personality and behavior. - Condition is Stable. - Medication Reconciliation, Local Pharmacy Hours form. - Follow up: Referral list, As provided by [facility]; When: Call to arrange an appointment; Reason: Recheck today's complaints. - Problem is chronic. - Symptoms have improved. Historical: - Allergies: Amoxicillin (Hives); Aspirin (Vomit); BACLOFEN (SOB); Coconut (Anaphylaxis); Erythromycin (Upset stomach); Latex (Hives); muscle relaxers (bad reaction); PENICILLINS (Rash); Strawberries (Hives); - Home Meds: 1. Ambien 10 mg oral tab 1 tab once daily nightly 2. Klonopin 0.5 mg Oral tab 1 tab 2 times per day 3. omeprazole 40 mg Oral cpDR 1 cap once daily 4. Remeron Oral Unknown once daily nightly 5. Zoloft 100 mg Oral tab 1 tab once daily - PMHx: Anxiety; bilateral leg fractures; Bipolar disorder; Chronic Back pain; Degenerative disc disease; Depression; Epilepsy; GERD; Hepatitis C; Irritable bowel syndrome; OCD; PTSD; right rib fractures; right wrist fracture; sternal fracture; TBI; - PSHx: back surgery; back; neck; sternum; Liver Biopsy; left,right leg; - Social history: Smoking status: Patient uses tobacco products, current every day smoker. Patient uses alcohol occasionally. No barriers to communication noted, The patient speaks fluent Belizean. - Family history: Not pertinent. - : The pt / caregiver states he / she is not on anticoagulants. Home medication list is obtained from the patient, [employer] import data. - Exposure Risk Screening:: None identified. Vital Signs: 10/24 21:58 BP 134 / 95; Pulse 112; Resp 20; Temp 97.3(T); Pulse Ox 95% on R/A; Weight 55.34 kg / rw1 122 lbs (R); Height 5 ft. 8 in. (172.72 cm) (R); Pain 0/10; 21:58 Body Mass Index 18.55 (55.34 kg, 172.72 cm) rw1 MDM: 21:55 Consult PFS/PSA/Commissioner Conservation Of Resources ordered. cs11 22:42 Consult PFS/PSA/Commissioner Conservation Of Resources complete. rw1 23:44 [place] Payment Agreement was scanned into [employer] and attached to record. gjb 23:44 Financial registration complete. b 10/25 09:40 T-Sheet-- Draft Copy was scanned into [employer] and attached to record. gb Signatures: Susan Munoz, Reg Reg gb Navneet Kiser LPN LPN rw1 Nathaniel Dudley, DO cs11 Kailee Castro,RN RN Uma Rubio The chart was reviewed and I authenticate all verbal orders and agree with the evaluation and treatment provided.Attachments: 10/24 23:44 [place] Payment Agreement b 10/25 09:40 T-Sheet-- Draft Copy gb Chart Complete MTDD
--- NOTE | 2016-10-26 23:46 | EDDOCDS ---
Physician Documentation [facility] Name: Link Goncalves Age: 41 yrs Sex: Male : 1975 Arrival Date: 10/24/2016 Time: 21:39 Bed [facility] Private MD: Disposition: 10/24/16 22:34 Discharged to Home/Self Care. Impression: Inadequate social skills, not elsewhere classified, Other disorders of adult personality and behavior. - Condition is Stable. - Medication Reconciliation, Local Pharmacy Hours form. - Follow up: Referral list, As provided by [facility]; When: Call to arrange an appointment; Reason: Recheck today's complaints. - Problem is chronic. - Symptoms have improved. Historical: - Allergies: Amoxicillin (Hives); Aspirin (Vomit); BACLOFEN (SOB); Coconut (Anaphylaxis); Erythromycin (Upset stomach); Latex (Hives); muscle relaxers (bad reaction); PENICILLINS (Rash); Strawberries (Hives); - Home Meds: 1. Ambien 10 mg oral tab 1 tab once daily nightly 2. Klonopin 0.5 mg Oral tab 1 tab 2 times per day 3. omeprazole 40 mg Oral cpDR 1 cap once daily 4. Remeron Oral Unknown once daily nightly 5. Zoloft 100 mg Oral tab 1 tab once daily - PMHx: Anxiety; bilateral leg fractures; Bipolar disorder; Chronic Back pain; Degenerative disc disease; Depression; Epilepsy; GERD; Hepatitis C; Irritable bowel syndrome; OCD; PTSD; right rib fractures; right wrist fracture; sternal fracture; TBI; - PSHx: back surgery; back; neck; sternum; Liver Biopsy; left,right leg; - Social history: Smoking status: Patient uses tobacco products, current every day smoker. Patient uses alcohol occasionally. No barriers to communication noted, The patient speaks fluent North Korean. - Family history: Not pertinent. - : The pt / caregiver states he / she is not on anticoagulants. Home medication list is obtained from the patient, [employer] import data. - Exposure Risk Screening:: None identified. Vital Signs: 10/24 21:58 BP 134 / 95; Pulse 112; Resp 20; Temp 97.3(T); Pulse Ox 95% on R/A; Weight 55.34 kg / rw1 122 lbs (R); Height 5 ft. 8 in. (172.72 cm) (R); Pain 0/10; 21:58 Body Mass Index 18.55 (55.34 kg, 172.72 cm) rw1 MDM: 21:55 Consult PFS/PSA/Hairspring Assembler ordered. cs11 22:42 Consult PFS/PSA/Hairspring Assembler complete. rw1 23:44 [place] Payment Agreement was scanned into [email or web address] and attached to record. gjb 23:44 Financial registration complete. b 10/25 09:40 T-Sheet-- Draft Copy was scanned into [email or web address] and attached to record. gb Signatures: Susan Munoz, Reg Reg gb Navneet Kiser LPN LPN rw1 Nathaniel Dudley, DO cs11 Kailee Castro,RN RN Uma Rubio The chart was reviewed and I authenticate all verbal orders and agree with the evaluation and treatment provided.Attachments: 10/24 23:44 [place] Payment Agreement b 10/25 09:40 T-Sheet-- Draft Copy gb Chart Complete MTDD
== END 2016-10-24 22:44 | disposition home or self-care (01) ==
LOC: M ED 21:39
DX: Z73.4 Inadequate social skills, not elsewhere classified (principal); F91.9 Conduct disorder, unspecified; F41.9 Anxiety disorder, unspecified; F32.9 Major depressive disorder, single episode, unspecified; F43.10 Post-traumatic stress disorder, unspecified; F42.9 Obsessive-compulsive disorder, unspecified; M54.9 Dorsalgia, unspecified; G89.29 Other chronic pain; M51.9 Unspecified thoracic, thoracolumbar and lumbosacral intervertebral disc disorder; G40.909 Epilepsy, unspecified, not intractable, without status epilepticus; K21.9 Gastro-esophageal reflux disease without esophagitis; B19.20 Unspecified viral hepatitis C without hepatic coma; K58.9 Irritable bowel syndrome, unspecified; Z87.820 Personal history of traumatic brain injury; Z87.828 Personal history of other (healed) physical injury and trauma; Z79.899 Other long term (current) drug therapy; Z88.0 Allergy status to penicillin; Z88.1 Allergy status to other antibiotic agents; Z88.6 Allergy status to analgesic agent; Z88.8 Allergy status to other drugs, medicaments and biological substances; Z91.018 Allergy to other foods; Z91.040 Latex allergy status; F17.210 Nicotine dependence, cigarettes, uncomplicated

== ENCOUNTER 2016-12-29 07:51 | Emergency (ER) | payer OTHER ==
[~2016-12-29] VITALS: Ht 172.7 cm; Wt 106.1 kg
[~2016-12-29 07:51] MED LIST changes: -SERT-141 PO; +SERT50TA PO
[2016-12-29] MEDS ORDERED: CHLOR50TA (08:03)
[2016-12-29] MEDS ORDERED: MIRT30TA3 (08:03)
[2016-12-29] MEDS ORDERED: CLON-412 (08:03)
[2016-12-29] MEDS ORDERED: IBUP600T26 PO (08:03)
[2016-12-29] MEDS ORDERED: SERT-138 (08:03)
[2016-12-29] MEDS ORDERED: CLON0.5T (08:03)
[2016-12-29] MEDS ORDERED: TRAZ50TA4 (08:03)
[2016-12-29] MEDS ORDERED: CLAR250S PO (08:04)
[2016-12-29] MEDS ORDERED: CLINDAMYCIN 900 MG in APPROPRIATE DILUENT 1 EA IV ONE (09:15)
[2016-12-29 09:53] LABS: ANION GAP 6 MEQ/L (8-16); BLOOD UREA NITROGEN 12 MG/DL (7-18); CALCIUM LEVEL 8.7 MG/DL (8.5-10.1); CARBON DIOXIDE LEVEL 27 MEQ/L (21-32); CHLORIDE LEVEL 106 MEQ/L (98-107); CREATININE FOR GFR 0.92 MG/DL (0.70-1.30); GLOMERULAR FILTRATION RATE > 60.0 (>60); GLUCOSE, FASTING 122 MG/DL (70-105); POTASSIUM SERUM 3.8 MEQ/L (3.5-5.1); SODIUM LEVEL 139 MEQ/L (136-145)
[2016-12-29] MEDS ORDERED: ISOVUE-370 76% 100ML VIAL (Q9967) As Ordered ONE (09:58)
[2016-12-29 10:21] LABS: BASO % 0.2 % (0.0-1.0); EOS # 0.2 K/mm3 (0.0-0.50); EOS % 1.8 % (0.0-3.0); LARGE UNSTAINED CELL # 0.1 K/mm3 (0.0-0.4); LARGE UNSTAINED CELL % 0.8 % (0.0-4.0); LYMPH # 0.7 K/mm3 (1.5-4.5); MEAN CORPUSCULAR HEMOGLOBIN 30.9 pg (27.0-33.0); MEAN CORPUSCULAR VOLUME 88.2 fl (80.0-96.0); MONO # 0.6 K/mm3 (0.0-0.8); MONO % 6.4 % (0.0-5.0); NEUTROPHILS # 7.6 K/mm3 (1.8-7.7); NEUTROPHILS % 82.9 % (36.0-66.0); PLATELET COUNT, AUTOMATED 169 k/mm3 (150-450); RED CELL DISTRIBUTION WIDTH 13.4 % (11.5-14.5); WHITE BLOOD COUNT 9.2 K/mm3 (4.0-10.0)
[2016-12-29 11:08] VITALS: BP 150/91
--- NOTE | 2016-12-29 11:18 | REP ---
Maxillofacial CT study with IV contrast: History: Right facial dental abscess with cellulitis. CT contrast dose: 75 mL of Isovue [address] findings: There is bilateral submandibular and mild right internal jugular lymphadenopathy. There is a moderate to marked area of swelling in the perimandibular soft tissues to the right of midline. There is a tiny sliver of low density parallel to the mandibular ramus on the right with enhancing margin consistent with a small perimandibular abscess. This measures 1.5 mm in thickness by 16 mm anterior to posterior by 13 mm cranial to caudal. No bony destructive lesion is seen. There are multiple bilateral carious teeth. No bony destructive lesion is seen. There is bilateral maxillary sinus mucosal thickening. No other significant abnormality. Impression: Right perimandibular cellulitis with a small, possibly subperiosteal, perimandibular abscess 1.5 x 16 x 13 mm. Multiple carious teeth. Bilateral mild cervical lymphadenopathy. Signed by Moses Georges MD 12/29/2016 01:14 P
[2016-12-29] MEDS ORDERED: dexameTHASONE 20 MG/5 ML VIAL (J1100) IV ONE (12:00)
[2016-12-29] MEDS ORDERED: CLEO300C2 PO (12:06)
== END 2016-12-29 12:43 | disposition home or self-care (01) ==
LOC: M ED 08:19
DX: K02.7 Dental root caries (principal); K04.7 Periapical abscess without sinus
CPT/HCPCS: 70487; 80048; 85025; 86140; 87040; 96365; 96375; 99283; J1100; Q9967

== ENCOUNTER 2017-02-08 01:53 | Emergency (ER) | payer OTHER ==
[~2017-02-08] VITALS: Ht 172.7 cm; Wt 104.3 kg
[~2017-02-08 01:53] MED LIST changes: +CHLOR50TA; +CLAR250S PO; +CLEO300C2 PO; +CLON-412; +CLON0.5T; +IBUP600T26 PO; +MIRT30TA3; +SERT-138; +TRAZ50TA4
[2017-02-08] MEDS ORDERED: METOCLOPRAMIDE INJ 10MG/2ML VIAL (J2765) IV ONE (03:00)
[2017-02-08] MEDS ORDERED: NS 1,000 ML IV ONE (03:00)
[2017-02-08 03:54] LABS: ALBUMIN 3.7 GM/DL (3.2-5.2); ALBUMIN/GLOBULIN RATIO 0.93 (1.00-1.93); ALKALINE PHOSPHATASE 94 U/L (45-117); ALT/SGPT 42 U/L (12-78); ANION GAP 8 MEQ/L (8-16); AST/SGOT 27 U/L (15-37); BILIRUBIN,DIRECT 0.1 MG/DL (0.0-0.2); BILIRUBIN,TOTAL 0.5 MG/DL (0.2-1.0); BLOOD UREA NITROGEN 17 MG/DL (7-18); CALCIUM LEVEL 8.3 MG/DL (8.5-10.1); CARBON DIOXIDE LEVEL 26 MEQ/L (21-32); CHLORIDE LEVEL 104 MEQ/L (98-107); CREATININE FOR GFR 0.91 MG/DL (0.70-1.30); GLOMERULAR FILTRATION RATE > 60.0 (>60); GLUCOSE, FASTING 138 MG/DL (70-105); POTASSIUM SERUM 3.6 MEQ/L (3.5-5.1); SODIUM LEVEL 138 MEQ/L (136-145); TOTAL PROTEIN 7.7 GM/DL (6.4-8.2)
[2017-02-08 04:13] VITALS: BP 136/73
== END 2017-02-08 04:14 | disposition home or self-care (01) ==
LOC: M ED 04:11
DX: K52.9 Noninfective gastroenteritis and colitis, unspecified (principal); J45.909 Unspecified asthma, uncomplicated; K21.9 Gastro-esophageal reflux disease without esophagitis; F32.9 Major depressive disorder, single episode, unspecified; G43.909 Migraine, unspecified, not intractable, without status migrainosus; F17.200 Nicotine dependence, unspecified, uncomplicated; Z79.899 Other long term (current) drug therapy; Z91.018 Allergy to other foods; Z91.040 Latex allergy status; Z88.8 Allergy status to other drugs, medicaments and biological substances; Z88.1 Allergy status to other antibiotic agents; Z88.0 Allergy status to penicillin; Z88.2 Allergy status to sulfonamides
CPT/HCPCS: 80048; 80076; 83690; 96374; 99282; J2765

== ENCOUNTER 2017-05-08 22:47 | Emergency (ER) | payer OTHER ==
[~2017-05-08] VITALS: Ht 172.7 cm; Wt 101.8 kg
[~2017-05-08 22:47] MED LIST changes: -BENZ200C44 PO; +BENZ200C53 PO; +IBUP-1022 PO; -IBUP600T26 PO; +MAGN1SOL2 PO; -MAGNSOL2 PO; -MUCI600T34 PO; +MUCI600T37 PO; +TOPA1TAB PO; -TOPA25TA10 PO; +TRAZ50TA11; +TRAZ50TA11 PO; -TRAZ50TA4; -TRAZ50TA4 PO; -ULTR50TA PO; +ULTR50TA8 PO; -ZYPR5TAB PO; +ZYPR5TAB31 PO
[2017-05-08] MEDS ORDERED: OLAN10TA2 PO (23:00)
[2017-05-09 00:51] VITALS: BP 118/67
--- NOTE | 2017-05-09 01:00 | REP ---
Clinical: Trauma. Technique: Frontal view of the chest with multiple views of the right hemithorax. Findings: Frontal view of the chest demonstrates no acute cardiopulmonary process. Multiple views of the right hemithorax demonstrates no obvious acute rib fracture or pathology. Impression: Normal right rib series Signed by Gene Pagan MD 05/09/2017 12:52 A
== END 2017-05-09 01:01 | disposition home or self-care (01) ==
LOC: M ED 22:47
DX: F41.9 Anxiety disorder, unspecified (principal); J45.909 Unspecified asthma, uncomplicated; K21.9 Gastro-esophageal reflux disease without esophagitis; F17.200 Nicotine dependence, unspecified, uncomplicated; Z79.899 Other long term (current) drug therapy; Z88.8 Allergy status to other drugs, medicaments and biological substances; Z91.018 Allergy to other foods; Z88.1 Allergy status to other antibiotic agents; Z88.2 Allergy status to sulfonamides; Z88.0 Allergy status to penicillin

== ENCOUNTER 2017-05-30 11:47 | Emergency (ER) | payer OTHER ==
[~2017-05-30] VITALS: Ht 175.3 cm; Wt 105.3 kg
[~2017-05-30 11:47] MED LIST changes: +OLAN10TA2 PO
[2017-05-30] MEDS ORDERED: **hydrALAZINE** 50 MG TAB PO ONE (12:45)
[2017-05-30] MEDS ORDERED: HYDR-3363 PO (13:32)
[2017-05-30 13:46] VITALS: BP 118/72
== END 2017-05-30 13:46 | disposition home or self-care (01) ==
LOC: M ED 11:47
DX: F41.9 Anxiety disorder, unspecified (principal); G47.00 Insomnia, unspecified; I10 Essential (primary) hypertension; G40.909 Epilepsy, unspecified, not intractable, without status epilepticus; F42.9 Obsessive-compulsive disorder, unspecified; F43.10 Post-traumatic stress disorder, unspecified; F31.9 Bipolar disorder, unspecified; E78.00 Pure hypercholesterolemia, unspecified; G44.009 Cluster headache syndrome, unspecified, not intractable; J45.909 Unspecified asthma, uncomplicated; Z87.820 Personal history of traumatic brain injury; Z87.442 Personal history of urinary calculi; Z86.14 Personal history of Methicillin resistant Staphylococcus aureus infection; Z79.899 Other long term (current) drug therapy; Z99.0 Dependence on aspirator; Z88.1 Allergy status to other antibiotic agents; Z88.2 Allergy status to sulfonamides; Z88.6 Allergy status to analgesic agent; Z88.8 Allergy status to other drugs, medicaments and biological substances; Z91.018 Allergy to other foods; Z91.040 Latex allergy status

== ENCOUNTER → 2017-07-30 | Outpatient (CLI) | payer OTHER ==
[~2017-07-30] MED LIST changes: +HYDR-3363 PO
--- NOTE | 2017-07-30 15:05 | REP ---
Chest two views HISTORY: Cough Comparison: N 05/08/2017 Linear densities are present in the lower lobes consistent with atelectasis or scar. The heart is normal in size. The pulmonary vasculature is normal in appearance. The bony structure is intact. IMPRESSION: Bibasilar atelectasis or scar. Signed by Raj Allison MD 07/30/2017 02:56 P
== END ==
LOC: M WUC 13:45
PROVIDERS: ATTEND Family Medicine Addiction Medicine
DX: R05 Cough (principal)

== ENCOUNTER 2018-01-11 17:18 | Emergency (ER) | payer OTHER ==
[2018-01-11 18:30] LABS: HEMATOCRIT 50.7 % (42.0-52.0); HEMOGLOBIN 17.8 g/dl (13.5-17.5); MEAN CORPUSCULAR HEMOGLOBIN 31.6 pg (27.0-33.0); MEAN CORPUSCULAR HGB CONC 35.1 g/dl (32.0-36.5); MEAN CORPUSCULAR VOLUME 89.9 fl (80.0-96.0); PLATELET COUNT, AUTOMATED 171 10^3/uL (150-450); RED BLOOD COUNT 5.64 10^6/uL (4.30-6.10); WHITE BLOOD COUNT 6.8 10^3/uL (4.0-10.0)
[2018-01-11 18:33] LABS: SUSPECT SAMPLE POS FLAG
[2018-01-11 18:53] LABS: AMPHETAMINES LEVEL URINE NEGATIVE (NEGATIVE); BARBITURATES URINE NEGATIVE (NEGATIVE); BENZODIAZEPINES URINE NEGATIVE (NEGATIVE); CANNABINOIDS URINE NEGATIVE (NEGATIVE); COCAINE METABOLITE URINE NEGATIVE (NEGATIVE); METHADONE URINE NEGATIVE (NEGATIVE); OPIATES URINE NEGATIVE (NEGATIVE); PHENCYCLIDINE URINE NEGATIVE (NEGATIVE)
[2018-01-11 19:03] LABS: ALBUMIN 3.7 GM/DL (3.2-5.2); ALBUMIN/GLOBULIN RATIO 0.95 (1.00-1.93); ALKALINE PHOSPHATASE 72 U/L (45-117); ALT/SGPT 38 U/L (12-78); ANION GAP 5 MEQ/L (8-16); AST/SGOT 24 U/L (7-37); BILIRUBIN,DIRECT 0.2 MG/DL (0.0-0.2); BILIRUBIN,TOTAL 0.5 MG/DL (0.2-1.0); BLOOD UREA NITROGEN 12 MG/DL (7-18); CALCIUM LEVEL 8.5 MG/DL (8.5-10.1); CARBON DIOXIDE LEVEL 31 MEQ/L (21-32); CHLORIDE LEVEL 103 MEQ/L (98-107); CREATININE FOR GFR 1.01 MG/DL (0.70-1.30); ETHYL ALCOHOL (ETHANOL) < 0.003 % (0.000-0.010); GLOMERULAR FILTRATION RATE > 60.0 (>60); GLUCOSE, FASTING 104 MG/DL (70-100); SALICYLATE LEVEL < 1.7 MG/DL (5.0-30.0); SODIUM LEVEL 139 MEQ/L (136-145); TOTAL PROTEIN 7.6 GM/DL (6.4-8.2)
[2018-01-11 19:08] LABS: ACETAMINOPHEN LEVEL < 2.0 UG/ML (10.0-30.0)
[2018-01-11] MEDS: LORazepam 1 MG TAB PO (21:38)
[2018-01-11] MEDS: MIRTAZAPINE 15 MG TAB PO (21:39)
== END 2018-01-11 22:41 | disposition home or self-care (01) ==
LOC: M ED 17:18
DX: F33.9 Major depressive disorder, recurrent, unspecified (principal); B18.2 Chronic viral hepatitis C; F10.10 Alcohol abuse, uncomplicated; K21.9 Gastro-esophageal reflux disease without esophagitis; F40.10 Social phobia, unspecified; F17.210 Nicotine dependence, cigarettes, uncomplicated; Z87.820 Personal history of traumatic brain injury; Z88.8 Allergy status to other drugs, medicaments and biological substances; Z91.018 Allergy to other foods; Z88.1 Allergy status to other antibiotic agents; Z91.040 Latex allergy status; Z88.0 Allergy status to penicillin; Z88.2 Allergy status to sulfonamides
CPT/HCPCS: 80320

== ENCOUNTER → 2018-07-10 | Outpatient (REF) | payer OTHER ==
[2018-07-10 18:53] LABS: BASO # 0.1 10^3/uL (0.0-0.2); BASO % 1.1 % (0.0-1.0); EOS # 0.4 10^3/uL (0.0-0.50); EOS % 5.6 % (0.0-3.0); HEMATOCRIT 50.8 % (42.0-52.0); HEMOGLOBIN 18.3 g/dl (13.5-17.5); IMMATURE GRANULOCYTE % 2.8 % (0-3.0); LYMPH # 1.6 10^3/uL (1.5-4.5); LYMPH % 24.4 % (24.0-44.0); MEAN CORPUSCULAR HEMOGLOBIN 32.4 pg (27.0-33.0); MEAN CORPUSCULAR VOLUME 90.1 fl (80.0-96.0); MONO # 0.8 10^3/uL (0.0-0.8); NEUTROPHILS # 3.5 10^3/uL (1.8-7.7); NEUTROPHILS % 54.1 % (36.0-66.0); PLATELET COUNT, AUTOMATED 155 10^3/uL (150-450); RED BLOOD COUNT 5.64 10^6/uL (4.30-6.10); RED CELL DISTRIBUTION WIDTH 11.9 % (11.5-14.5); WHITE BLOOD COUNT 6.4 10^3/uL (4.0-10.0)
[2018-07-10 19:00] LABS: ALBUMIN 3.7 GM/DL (3.2-5.2); ALBUMIN/GLOBULIN RATIO 1.03 (1.00-1.93); ALKALINE PHOSPHATASE 105 U/L (45-117); ALT/SGPT 72 U/L (12-78); ANION GAP 11 MEQ/L (8-16); AST/SGOT 52 U/L (7-37); BILIRUBIN,TOTAL 0.6 MG/DL (0.2-1.0); BLOOD UREA NITROGEN 15 MG/DL (7-18); CALCIUM LEVEL 8.8 MG/DL (8.5-10.1); CARBON DIOXIDE LEVEL 25 MEQ/L (21-32); CHLORIDE LEVEL 106 MEQ/L (98-107); CREATININE FOR GFR 0.73 MG/DL (0.70-1.30); GLOMERULAR FILTRATION RATE > 60.0 (>60); GLUCOSE, FASTING 130 MG/DL (70-100); POTASSIUM SERUM 4.2 MEQ/L (3.5-5.1); SODIUM LEVEL 142 MEQ/L (136-145); TOTAL PROTEIN 7.3 GM/DL (6.4-8.2)
[2018-07-10 19:47] LABS: SUSPECT SAMPLE POS FLAG
[2018-07-13 10:42] LABS: HEPATITIS B SURFACE ANTIBODY NEGATIVE (POSITIVE)
[2018-07-13 11:24] LABS: HEPATITIS C VIRUS ABY INDEX > 11.0 INDEX (<0.8)
[2018-07-13 12:04] LABS: HEPATITIS B SURFACE ANTIGEN NEGATIVE (NEGATIVE)
== END ==
LOC: M LAB REF 17:15
DX: B19.20 Unspecified viral hepatitis C without hepatic coma (principal)

== ENCOUNTER → 2018-07-20 | Outpatient (REF) | payer OTHER ==
[2018-07-27 14:37] LABS: HEPATITIS C QUANTITATION 1501350 IU/mL (.); HEPATITIS C VIRUS GENOTYPE 4 (.)
== END ==
LOC: M LAB REF 16:23
DX: B18.2 Chronic viral hepatitis C (principal)

== ENCOUNTER → 2018-10-22 | Outpatient (REF) | payer OTHER ==
[~2018-10-22] MED LIST changes: -BENZ200C53 PO; +BENZ200C70 PO; -CLON0.5T; +CLON0.5T8; -CLON1TAB PO; +CLON1TAB8 PO; +DEPA1TAB3; +EFFE37.5 PO; -EFFE37.527 PO; +MIRT45TA4; +OXYC10TA3 PO; -OXYC1TAB16 PO; +TRAZ-160; +TRAZ-160 PO; +TRAZ-163; -TRAZ50TA11; -TRAZ50TA11 PO; +ZYRT10CA5 PO; -ZYRT10TA2 PO
[2018-10-22 17:52] LABS: BASO # 0.1 10^3/uL (0.0-0.2); BASO % 0.7 % (0.0-1.0); EOS # 0.2 10^3/uL (0.0-0.50); EOS % 3.4 % (0.0-3.0); HEMATOCRIT 51.9 % (42.0-52.0); HEMOGLOBIN 18.5 g/dl (13.5-17.5); LYMPH # 1.5 10^3/uL (1.5-4.5); LYMPH % 20.4 % (24.0-44.0); MEAN CORPUSCULAR HEMOGLOBIN 31.2 pg (27.0-33.0); MEAN CORPUSCULAR HGB CONC 35.6 g/dl (32.0-36.5); MEAN CORPUSCULAR VOLUME 87.5 fl (80.0-96.0); MONO # 0.6 10^3/uL (0.0-0.8); MONO % 8.7 % (0.0-5.0); NEUTROPHILS # 4.7 10^3/uL (1.8-7.7); NEUTROPHILS % 65.3 % (36.0-66.0); PLATELET COUNT, AUTOMATED 166 10^3/uL (150-450); RED BLOOD COUNT 5.93 10^6/uL (4.30-6.10); WHITE BLOOD COUNT 7.2 10^3/uL (4.0-10.0)
[2018-10-22 18:07] LABS: HEMOGLOBIN A1c 9.1 %
[2018-10-22 19:49] LABS: ALBUMIN 3.8 GM/DL (3.2-5.2); ALT/SGPT 58 U/L (12-78); BILIRUBIN,TOTAL 0.5 MG/DL (0.2-1.0); BLOOD UREA NITROGEN 15 MG/DL (7-18); CALCIUM LEVEL 9.1 MG/DL (8.5-10.1); CARBON DIOXIDE LEVEL 25 MEQ/L (21-32); CHLORIDE LEVEL 103 MEQ/L (98-107); CHOLESTEROL LEVEL 179 MG/DL (<200); CHOLESTEROL RISK RATIO 5.114 (<5); CREATININE FOR GFR 0.84 MG/DL (0.70-1.30); FERRITIN 219 NG/ML (26-388); GLOMERULAR FILTRATION RATE > 60.0 (>60); GLUCOSE, FASTING 241 MG/DL (70-100); HDL CHOLESTEROL 35 MG/DL (>40); IRON (FE) 91 UG/DL (65-175); NON-HDL-C 144 MG/DL; PERCENT SATURATION 27.1 % (19.7-50.0); SODIUM LEVEL 137 MEQ/L (136-145); TOTAL IRON BINDING CAPACITY 336 UG/DL (250-450); TOTAL PROTEIN 7.7 GM/DL (6.4-8.2); TRIGLYCERIDES LEVEL 645 MG/DL (<150)
== END ==
LOC: M LAB REF 16:41
PROVIDERS: ATTEND Family Medicine Addiction Medicine
DX: E78.5 Hyperlipidemia, unspecified (principal)

== ENCOUNTER → 2018-10-26 | Outpatient (REF) | payer OTHER ==
[2018-10-26 23:02] LABS: HIV 1&2 SCREEN CENTAUR NEGATIVE (NEGATIVE)
[2018-10-28 08:35] LABS: CREATININE, URINE 66.9 mg/dL (20.0-300.0); HEPATITIS A IgG TOTAL Positive (Negative); HEPATITIS B CORE ANTIBODY IGG Negative (Negative)
[2018-10-28 11:46] LABS: HEPATITIS A ANTIBODY IGM NEGATIVE (NEGATIVE); HEPATITIS B SURFACE ANTIBODY NEGATIVE (POSITIVE)
== END ==
LOC: M LAB REF 16:32
PROVIDERS: ATTEND Nurse Practitioner Adult Health
DX: B18.2 Chronic viral hepatitis C (principal)

== ENCOUNTER → 2018-10-30 | Outpatient (CLI) | payer OTHER ==
--- NOTE | 2018-11-03 15:33 | SLEEPHOME ---
DATE OF PROCEDURE: 10/30/2018 ORDERED BY: Dr. Veloz Diagnostic home sleep testing was performed due to concern for the obstructive sleep apnea syndrome in this patient with a history of fatigue. For testing a nocturnal T3 respiratory monitoring device was used. Continuous record was made of pulse, oxygen saturation, airflow, chest, abdominal strain and body position. 9 hours and 51 minutes of data were reviewed. There were 7 hours and 47 minutes identified as time in bed. During the interval marked time in bed, there were 159 respiratory events identified of 10 seconds in duration or greater for a respiratory event index of 20.4. The events were primarily obstructive though 64 central and mixed apneas were also seen. Pulse oximetry dislodged early in the study, and therefore, saturation and pulse rate data were not recorded. Testing was performed in both the supine and nonsupine positions. IMPRESSION: Abnormal home sleep testing with repetitive respiratory events and a respiratory event index of 20.4 is consistent with the obstructive sleep apnea syndrome. RECOMMENDATIONS: The patient should be encouraged to undergo formal sleep evaluation and in-laboratory pressure titration.
== END ==
LOC: M SLEEP HO 11:20
PROVIDERS: ATTEND Family Medicine Addiction Medicine
DX: R53.83 Other fatigue (principal)

== ENCOUNTER → 2018-11-06 | Outpatient (CLI) | payer OTHER ==
[2018-11-06 09:03] LABS: BASO # 0.1 10^3/uL (0.0-0.2); BASO % 1.3 % (0.0-1.0); EOS # 0.3 10^3/uL (0.0-0.50); EOS % 4.2 % (0.0-3.0); HEMATOCRIT 51.2 % (42.0-52.0); HEMOGLOBIN 18.2 g/dl (13.5-17.5); LYMPH # 1.9 10^3/uL (1.5-4.5); LYMPH % 31.4 % (24.0-44.0); MEAN CORPUSCULAR HEMOGLOBIN 31.2 pg (27.0-33.0); MEAN CORPUSCULAR HGB CONC 35.5 g/dl (32.0-36.5); MEAN CORPUSCULAR VOLUME 87.7 fl (80.0-96.0); MONO # 0.6 10^3/uL (0.0-0.8); MONO % 9.2 % (0.0-5.0); NEUTROPHILS # 3.2 10^3/uL (1.8-7.7); NEUTROPHILS % 52.6 % (36.0-66.0); PLATELET COUNT, AUTOMATED 191 10^3/uL (150-450); RED BLOOD COUNT 5.84 10^6/uL (4.30-6.10); WHITE BLOOD COUNT 6.1 10^3/uL (4.0-10.0)
[2018-11-06 09:12] LABS: ALBUMIN 3.8 GM/DL (3.2-5.2); BILIRUBIN,DIRECT 0.2 MG/DL (0.0-0.2); BILIRUBIN,TOTAL 0.6 MG/DL (0.2-1.0); PERCENT SATURATION 37.6 % (19.7-50.0); TOTAL PROTEIN 7.5 GM/DL (6.4-8.2)
== END ==
LOC: M LAB 07:58
PROVIDERS: ATTEND Internal Medicine Gastroenterology
DX: K21.0 Gastro-esophageal reflux disease with esophagitis (principal)

== ENCOUNTER 2019-01-06 11:15 | Outpatient (RCR) | payer OTHER | END 2019-01-10 | LOC: M PT 11:15 | PROVIDERS: ATTEND Family Medicine Addiction Medicine | DX: M54.9 Dorsalgia, unspecified (principal) ==

== ENCOUNTER 2019-02-04 11:48 | Outpatient (RCR) | payer OTHER ==
[~2019-02-04 11:48] MED LIST changes: -/ESOM40CA OR; -AMMO12CR4 EX; +AMMO12CR7 EX; -ERGO500014 PO; +NEXI1CAP3 OR; -PERM5CR TOP; +PERM5CRE3 TOP; +SERT-141 PO; -SERT50TA PO; +VITA500045 PO
== END 2019-02-09 ==
LOC: M PT 11:48
PROVIDERS: ATTEND Family Medicine Addiction Medicine
DX: M54.9 Dorsalgia, unspecified (principal)

== ENCOUNTER 2019-02-11 11:18 | Outpatient (RCR) | payer OTHER ==
[2019-02-14] MEDS ORDERED: OLAN10TA2 (10:27)
[2019-02-14] MEDS ORDERED: BASA100I (10:27)
[2019-02-14] MEDS ORDERED: OMEP-221 (10:27)
[2019-02-14] MEDS ORDERED: SENN-83 (10:27)
[2019-02-14] MEDS ORDERED: IBUP80TA (10:27)
[2019-02-14] MEDS ORDERED: CLON1TAB8 (10:27)
[2019-02-14] MEDS ORDERED: CLEO300C2 PO (11:17)
[2019-02-14] MEDS ORDERED: DEBR6.5S4 AS (11:17)
== END 2019-03-12 ==
LOC: M PT 11:18
PROVIDERS: ATTEND Family Medicine Addiction Medicine
DX: M54.9 Dorsalgia, unspecified (principal)

== ENCOUNTER 2019-02-14 10:19 | Emergency (ER) | payer OTHER ==
[~2019-02-14] VITALS: Ht 172.7 cm; Wt 112.3 kg
[2019-02-14 10:20] VITALS: BP 124/91
[2019-02-14] MEDS ORDERED: OLAN10TA2 (10:27)
[2019-02-14] MEDS ORDERED: OMEP-221 (10:27)
[2019-02-14] MEDS ORDERED: SENN-83 (10:27)
[2019-02-14] MEDS ORDERED: IBUP80TA (10:27)
[2019-02-14] MEDS ORDERED: CLON1TAB8 (10:27)
[2019-02-14] MEDS ORDERED: BASA100I (10:27)
[2019-02-14] MEDS ORDERED: DEBR6.5S4 AS (11:17)
[2019-02-14] MEDS ORDERED: CLEO300C2 PO (11:17)
== END 2019-02-14 11:25 | disposition home or self-care (01) ==
LOC: M ED 10:19
DX: H66.002 Acute suppurative otitis media without spontaneous rupture of ear drum, left ear (principal); H61.22 Impacted cerumen, left ear; I10 Essential (primary) hypertension; K21.9 Gastro-esophageal reflux disease without esophagitis; B19.20 Unspecified viral hepatitis C without hepatic coma; F31.9 Bipolar disorder, unspecified; F43.10 Post-traumatic stress disorder, unspecified; F42.9 Obsessive-compulsive disorder, unspecified; Z79.899 Other long term (current) drug therapy; Z79.4 Long term (current) use of insulin; Z88.0 Allergy status to penicillin; Z88.1 Allergy status to other antibiotic agents; Z88.2 Allergy status to sulfonamides; Z88.8 Allergy status to other drugs, medicaments and biological substances; Z91.018 Allergy to other foods; Z91.040 Latex allergy status; F17.210 Nicotine dependence, cigarettes, uncomplicated

== ENCOUNTER → 2019-03-09 | Outpatient (REF) | payer OTHER ==
[~2019-03-09] MED LIST changes: +BASA100I; +CLON1TAB8; +DEBR6.5S4 AS; +IBUP80TA; +OLAN10TA2; +OMEP-221; +SENN-83
[2019-03-12 14:10] LABS: HEPATITIS C QUANTITATION HCV Not Detected IU/mL (.)
== END ==
LOC: M LAB REF 16:48
PROVIDERS: ATTEND Nurse Practitioner Adult Health
DX: B18.2 Chronic viral hepatitis C (principal)

== ENCOUNTER → 2019-03-16 | Outpatient (REF) | payer OTHER ==
[~2019-03-16] MED LIST changes: -TRAZ-160; -TRAZ-160 PO; +TRAZ-252; +TRAZ-252 PO
[2019-03-16 16:00] LABS: HEMOGLOBIN A1c 7.3 %
== END ==
LOC: M LAB REF 13:11
PROVIDERS: ATTEND Family Medicine Addiction Medicine
DX: E11.9 Type 2 diabetes mellitus without complications (principal)

== ENCOUNTER → 2019-04-22 | Outpatient (REF) | payer OTHER ==
[2019-04-23 10:48] LABS: HEPATITIS B SURFACE ANTIBODY POSITIVE (POSITIVE); HEPATITIS B SURFACE ANTIGEN NEGATIVE (NEGATIVE)
[2019-04-26 14:36] LABS: HEPATITIS B CORE ANTIBODY IGG Negative (Negative); HEPATITIS C QUANTITATION HCV Not Detected IU/mL (.)
== END ==
LOC: M LAB REF 16:51
PROVIDERS: ATTEND Nurse Practitioner Adult Health
DX: B18.2 Chronic viral hepatitis C (principal)

== ENCOUNTER → 2019-06-18 | Outpatient (REF) | payer OTHER ==
[2019-06-18 17:29] LABS: CHOLESTEROL LEVEL 251 MG/DL (<200); CHOLESTEROL RISK RATIO 8.096 (<5); HDL CHOLESTEROL 31 MG/DL (>40); NON-HDL-C 220 MG/DL; TRIGLYCERIDES LEVEL 707 MG/DL (<150)
[2019-06-18 17:30] LABS: HEMOGLOBIN A1c 7.5 %
== END ==
LOC: M LAB REF 16:21
PROVIDERS: ATTEND Family Medicine Addiction Medicine
DX: E11.9 Type 2 diabetes mellitus without complications (principal)

== ENCOUNTER → 2019-07-27 | Outpatient (CLI) | payer OTHER ==
[~2019-07-27] MED LIST changes: -OMEP40CA2 PO; +OMEP40CA97 PO
--- NOTE | 2019-07-27 18:47 | REP ---
Clinical: Chronic hepatitis C. Technique: Real time gill scale ultrasound examination using curved array transducer. Comparison: 12/04/2015. Findings: Liver is mildly increased echogenicity with decreased through transmission suggesting fatty infiltration and/or hepatocellular disease. No focal hepatic lesion identified. The pancreas is incompletely evaluated due to interposed bowel gas. Gallbladder is normal. No biliary ductal dilatation is appreciated and the common bile duct measures 5.5 mm diameter. The bilateral kidneys are normal in reniform shape without hydronephrosis. Right kidney measures 11.0 x 5.4 x 4.9 cm. Left kidney measures 12.8 x 5.4 x 4.5 cm. Abdominal aorta appears normal and measures 2.9 cm diameter. No ascites. Impression: 1. Hepatosteatosis/hepatocellular disease. Electronically Signed by Gene Pagan MD 07/27/2019 06:39 P
== END ==
LOC: M RAD 09:25
PROVIDERS: ATTEND Internal Medicine Gastroenterology
DX: K76.0 Fatty (change of) liver, not elsewhere classified (principal); B18.2 Chronic viral hepatitis C

== ENCOUNTER → 2019-08-25 | Outpatient (REF) | payer OTHER ==
[2019-08-25 18:57] LABS: HEMOGLOBIN A1c 7.5 %
[2019-08-25 19:07] LABS: ALBUMIN 3.9 GM/DL (3.2-5.2); ALT/SGPT 33 U/L (12-78); BILIRUBIN,TOTAL 0.4 MG/DL (0.2-1.0); BLOOD UREA NITROGEN 15 MG/DL (7-18); CARBON DIOXIDE LEVEL 28 MEQ/L (21-32); CHLORIDE LEVEL 103 MEQ/L (98-107); CHOLESTEROL LEVEL 201 MG/DL (<200); CHOLESTEROL RISK RATIO 5.742 (<5); CREATININE FOR GFR 0.96 MG/DL (0.70-1.30); FREE T4 0.76 NG/DL (0.76-1.46); GLOMERULAR FILTRATION RATE > 60.0 (>60); GLUCOSE, FASTING 153 MG/DL (70-100); HDL CHOLESTEROL 35 MG/DL (>40); LDL CHOLESTEROL 88 MG/DL (<100); NON-HDL-C 166 MG/DL; POTASSIUM SERUM 4.3 MEQ/L (3.5-5.1); SODIUM LEVEL 139 MEQ/L (136-145); TOTAL PROTEIN 7.8 GM/DL (6.4-8.2); TRIGLYCERIDES LEVEL 392 MG/DL (<150)
== END ==
LOC: M LAB REF 16:29
PROVIDERS: ATTEND Nurse Practitioner Family
DX: Z00.01 Encounter for general adult medical examination with abnormal findings (principal)

== ENCOUNTER → 2019-11-24 | Outpatient (REF) | payer OTHER ==
[~2019-11-24] MED LIST changes: +CLON0.5T2; -CLON0.5T8; -TRAZ-163; +TRAZ-257
[2019-11-24 14:05] LABS: BASO # 0.1 10^3/uL (0.0-0.2); EOS # 0.6 10^3/uL (0.0-0.5); EOS % 7.8 % (0.0-3.0); HEMATOCRIT 51.1 % (42.0-52.0); HEMOGLOBIN 16.6 g/dl (13.5-17.5); LYMPH # 1.6 10^3/uL (1.5-5.0); LYMPH % 22.1 % (24.0-44.0); MEAN CORPUSCULAR HEMOGLOBIN 29.4 pg (27.0-33.0); MEAN CORPUSCULAR HGB CONC 32.5 g/dl (32.0-36.5); MEAN CORPUSCULAR VOLUME 90.4 fl (80.0-96.0); MONO # 0.5 10^3/uL (0.0-0.8); MONO % 6.6 % (0.0-5.0); NEUTROPHILS # 4.4 10^3/uL (1.5-8.5); NEUTROPHILS % 61.1 % (36.0-66.0); PLATELET COUNT, AUTOMATED 196 10^3/uL (150-450); RED BLOOD COUNT 5.65 10^6/uL (4.30-6.10); WHITE BLOOD COUNT 7.3 10^3/uL (4.0-10.0)
[2019-11-24 14:22] LABS: ALBUMIN 3.9 GM/DL (3.2-5.2); ALT/SGPT 36 U/L (12-78); BILIRUBIN,TOTAL 0.6 MG/DL (0.2-1.0); BLOOD UREA NITROGEN 17 MG/DL (7-18); CALCIUM LEVEL 9.1 MG/DL (8.5-10.1); CARBON DIOXIDE LEVEL 28 MEQ/L (21-32); CHLORIDE LEVEL 104 MEQ/L (98-107); CHOLESTEROL LEVEL 172 MG/DL (<200); CHOLESTEROL RISK RATIO 5.733 (<5); CREATININE FOR GFR 0.86 MG/DL (0.70-1.30); FREE T4 0.96 NG/DL (0.76-1.46); GLOMERULAR FILTRATION RATE > 60.0 (>60); GLUCOSE, FASTING 149 MG/DL (70-100); HDL CHOLESTEROL 30 MG/DL (>40); HEMOGLOBIN A1c 7.9 %; LDL CHOLESTEROL 71 MG/DL (<100); NON-HDL-C 142 MG/DL; POTASSIUM SERUM 4.4 MEQ/L (3.5-5.1); SODIUM LEVEL 139 MEQ/L (136-145); TOTAL 25(OH) VITAMIN D 17.7 NG/ML (30.0-100.0); TOTAL PROTEIN 7.4 GM/DL (6.4-8.2); TRIGLYCERIDES LEVEL 353 MG/DL (<150)
== END ==
LOC: M LAB REF 12:44
PROVIDERS: ATTEND Family Medicine
DX: E11.9 Type 2 diabetes mellitus without complications (principal)

== ENCOUNTER → 2020-02-08 | Outpatient (CLI) | payer OTHER ==
[2020-02-08 09:59] LABS: PLATELET COUNT, AUTOMATED 185 10^3/uL (150-450)
[2020-02-08 10:25] LABS: ALBUMIN 3.7 GM/DL (3.2-5.2); BILIRUBIN,DIRECT 0.1 MG/DL (0.0-0.2); BILIRUBIN,TOTAL 0.3 MG/DL (0.2-1.0); TOTAL PROTEIN 7.6 GM/DL (6.4-8.2)
[2020-02-10 06:50] LABS: HEPATITIS C QUANTITATION HCV Not Detected IU/mL (.)
== END ==
LOC: M LAB 09:14
PROVIDERS: ATTEND Internal Medicine Gastroenterology
DX: B18.2 Chronic viral hepatitis C (principal); K21.0 Gastro-esophageal reflux disease with esophagitis

== ENCOUNTER → 2020-02-08 | Outpatient (CLI) | payer OTHER ==
--- NOTE | 2020-02-08 18:43 | REP ---
Clinical: Hepatitis C and cirrhosis. Technique: Real time gill scale ultrasound examination using curved array transducer. Comparison: 07/27/2019. Findings: The liver is hyperechoic suggesting fatty infiltration and hepatocellular disease. No focal hepatic lesion identified. The pancreas is incompletely evaluated due to interposed bowel gas but visualized portions appear normal. The spleen is enlarged and measures 14.1 x 14.3 x 4.3 cm ([id number]). No focal splenic lesions identified. The gallbladder is unremarkable and without gallstones, wall thickening, or pericholecystic fluid. No biliary ductal dilatation is appreciated and the common bile duct measures 4.0 mm diameter. The bilateral kidneys are normal in reniform shape without hydronephrosis. Right kidney measures 12.0 x 5.7 x 5.5 cm. Left kidney measures 12.2 x 5.1 x 4.3 cm. No pelvic fluid or adnexal mass lesion. Impression: 1. Findings suggesting hepatosteatosis and/or hepatocellular disease. No focal hepatic lesion identified. 2. Splenomegaly without focal splenic lesion. Electronically Signed by Gene Pagan MD 02/08/2020 06:35 P
== END ==
LOC: M RAD 08:39
PROVIDERS: ATTEND Internal Medicine Gastroenterology
DX: B18.2 Chronic viral hepatitis C (principal); K74.69 Other cirrhosis of liver

== ENCOUNTER → 2020-03-15 | Outpatient (REF) | payer OTHER ==
[2020-03-15 16:31] LABS: MAU/CREAT RATIO 24.1 MCG/MG (0.0-30.0)
== END ==
LOC: M LAB REF 15:14
PROVIDERS: ATTEND Nurse Practitioner Family
DX: E11.65 Type 2 diabetes mellitus with hyperglycemia (principal)

== ENCOUNTER → 2020-04-16 | Outpatient (CLI) | payer OTHER ==
[~2020-04-16] MED LIST changes: +BUSP1TAB PO; -CLON1TAB8; +FENO134C PO; +GABA-845 PO; +GEOD40CA13 PO; +LEVO50TA5 PO; +METF-729 PO; +MIRT1TAB17 PO; +MM S100C PO; +PROP60TA14 PO; +SIMV40TA20 PO
== END ==
LOC: M LABSMTC 09:26
PROVIDERS: ATTEND Anesthesiology
DX: Z03.818 Encounter for observation for suspected exposure to other biological agents ruled out (principal); Z11.59 Encounter for screening for other viral diseases
CPT/HCPCS: C9803; U0003

== ENCOUNTER 2020-04-19 13:04 | Day surgery (SDC) | payer OTHER ==
[~2020-04-19] VITALS: Ht 172.7 cm; Wt 116.6 kg
[~2020-04-19 13:04] MED LIST changes: +NS 1,000 ML IV ONE
[2020-04-19] MEDS ORDERED: propofoL 200 MG/20 ML VIAL As Ordered ONE (13:06)
[2020-04-19] MEDS ORDERED: LIDOCAINE 2% 100MG/5ML SDV (FOR ANES.) As Ordered ONE (13:08)
--- NOTE | 2020-04-19 15:34 | ROOR ---
Patient Name: Link Goncalves Procedure Date: 04/19/2020 2:54 PM Date of : 1975 Age: 44 Room: [facility] Gender: Male Note Status: Finalized Procedure: Upper GI endoscopy Indications: Suspected gastro-esophageal reflux disease, Suspected non-erosive esophageal reflux Providers: José Antonio Chang MD Referring MD: Norris Partida Do Requesting Provider: Medicines: Monitored Anesthesia Care Complications: No immediate complications. Procedure: Pre-Anesthesia Assessment: - Prior to the procedure, a History and Physical was performed, and patient medications and allergies were reviewed. The patient is competent. The risks and benefits of the procedure and the sedation options and risks were discussed with the patient. All questions were answered and informed consent was obtained. Patient identification and proposed procedure were verified by the physician, the nurse and the anesthesiologist in the procedure room. Mental Status Examination: alert and oriented. Airway Examination: normal oropharyngeal airway and neck mobility. Respiratory Examination: clear to auscultation. CV Examination: normal. Prophylactic Antibiotics: The patient does not require prophylactic antibiotics. Prior Anticoagulants: The patient has taken no previous anticoagulant or antiplatelet agents. ASA Grade Assessment: II - A patient with mild systemic disease. After reviewing the risks and benefits, the patient was deemed in satisfactory condition to undergo the procedure. The anesthesia plan was to use monitored anesthesia care (MAC). Immediately prior to administration of medications, the patient was re-assessed for adequacy to receive sedatives. The heart rate, respiratory rate, oxygen saturations, blood pressure, adequacy of pulmonary ventilation, and response to care were monitored throughout the procedure. The physical status of the patient was re-assessed after the procedure. The Endoscope was introduced through the mouth, and advanced to the second part of duodenum. The upper GI endoscopy was accomplished without difficulty. The patient tolerated the procedure well. Findings: The Z-line was regular and was found 41 cm from the incisors. The VALLECILLO capsule with delivery system was introduced through the mouth and advanced into the esophagus, such that the VALLECILLO pH capsule was positioned 35 cm from the incisors, which was 6 cm proximal to the GE junction. Suction was applied to the well of the VALLECILLO pH capsule to suck in the adjacent mucosa of the esophagus using the external vacuum pump set at a minimum vacuum pressure of 550 mmHg for 30 seconds. The VALLECILLO pH capsule was then deployed by depressing the plunger on top of the handle to advance the locking pin into the mucosa, thereby attaching the capsule to the esophagus. The plunger was then rotated a quarter turn clockwise to release the capsule from the delivery system. The delivery system was then withdrawn. Endoscopy was utilized for probe placement and diagnostic evaluation. The scope was reinserted to evaluate placement of the VALLECILLO capsule. Visualization showed the VALLECILLO capsule to be in an appropriate position. Scattered moderate inflammation characterized by erythema and granularity was found in the gastric antrum. Biopsies were taken with a cold forceps for Helicobacter pylori testing. Verification of patient identification for the specimen was done by the physician and nurse using the patient's name, date and medical record number. Estimated blood loss was minimal. Localized mildly scalloped mucosa was found in the duodenal bulb and in the second portion of the duodenum. Biopsies for histology were taken with a cold forceps for evaluation of celiac disease. Impression: - Z-line regular, 41 cm from the incisors. - Gastritis. Biopsied. - Scalloped mucosa was found in the duodenum, suspicious for celiac disease. Biopsied. - The VALLECILLO pH capsule was positioned 35 cm from the incisors, which was 6 cm proximal to the GE junction. Recommendation: - Patient has a contact number available for emergencies. The signs and symptoms of potential delayed complications were discussed with the patient. Return to normal activities tomorrow. Written discharge instructions were provided to the patient. - High fiber diet. - Continue present medications. - Await pathology results. - Follow an antireflux regimen. - Return to GI clinic in 2 weeks. - Return to primary care physician. José Antonio Chang MD José Antonio Chang MD 04/19/2020 3:34:07 PM Electronically signed by José Antonio Chang MD Number of Addenda: 0 Note Initiated On: 04/19/2020 2:54 PM Estimated Blood Loss: Estimated blood loss was minimal.
[2020-04-19 15:55] VITALS: BP 141/87
== END 2020-04-19 16:05 | disposition home or self-care (01) ==
LOC: M OPP 13:04
PROVIDERS: ATTEND Internal Medicine Gastroenterology
DX: K29.70 Gastritis, unspecified, without bleeding (principal); K31.89 Other diseases of stomach and duodenum; E11.9 Type 2 diabetes mellitus without complications; G47.30 Sleep apnea, unspecified; E03.9 Hypothyroidism, unspecified; I10 Essential (primary) hypertension; F17.210 Nicotine dependence, cigarettes, uncomplicated; Z79.899 Other long term (current) drug therapy; Z88.0 Allergy status to penicillin; Z88.2 Allergy status to sulfonamides; Z88.6 Allergy status to analgesic agent; Z88.8 Allergy status to other drugs, medicaments and biological substances; Z91.040 Latex allergy status; Z91.018 Allergy to other foods

== ENCOUNTER → 2020-06-09 | Outpatient (CLI) | payer OTHER ==
[~2020-06-09] MED LIST changes: +LAMO100T3; -NS 1,000 ML IV ONE
[2020-06-09 13:34] LABS: ALBUMIN 3.9 GM/DL (3.2-5.2); ALT/SGPT 36 U/L (12-78); BILIRUBIN,TOTAL 0.5 MG/DL (0.2-1.0); BLOOD UREA NITROGEN 16 MG/DL (7-18); CALCIUM LEVEL 9.2 MG/DL (8.5-10.1); CARBON DIOXIDE LEVEL 29 MEQ/L (21-32); CHLORIDE LEVEL 103 MEQ/L (98-107); CHOLESTEROL LEVEL 191 MG/DL (<200); GLOMERULAR FILTRATION RATE > 60.0 (>60); GLUCOSE, FASTING 156 MG/DL (70-100); HDL CHOLESTEROL 25 MG/DL (>40); NON-HDL-C 166 MG/DL; POTASSIUM SERUM 3.9 MEQ/L (3.5-5.1); SODIUM LEVEL 138 MEQ/L (136-145); TOTAL PROTEIN 7.5 GM/DL (6.4-8.2); TRIGLYCERIDES LEVEL 685 MG/DL (<150)
== END ==
LOC: M LAB 12:25
PROVIDERS: ATTEND Nurse Practitioner Family
DX: E78.2 Mixed hyperlipidemia (principal)

== ENCOUNTER → 2020-06-09 | Outpatient (CLI) | payer OTHER ==
--- NOTE | 2020-06-27 16:46 | REP ---
THYROID/NECK ULTRASOUND: HISTORY: Right-sided palpable mass. Adenopathy. TECHNIQUE: Real time, gill scale and color evaluation using linear high frequency transducer. FINDINGS: Ultrasound examination demonstrates 3 normal-appearing lymph nodes along the cervical chain measuring 14 x 8 x 12 mm, 12 x 6 x 11 mm and 16 x 7 x 10 mm. No further fluid collection or mass lesion appreciated. IMPRESSION: Three visualized lymph nodes as described above, appear normal. MTDD
== END ==
LOC: M RAD 11:08
PROVIDERS: ATTEND Physician Assistant Medical
DX: R22.1 Localized swelling, mass and lump, neck (principal)

== ENCOUNTER 2020-08-09 11:45 | Emergency (ER) | payer OTHER ==
[~2020-08-09] VITALS: Ht 172.7 cm; Wt 120.1 kg
[~2020-08-09 11:45] MED LIST changes: -LAMO100T3
[2020-08-09] MEDS ORDERED: LAMO100T3 (11:56)
[2020-08-09] MEDS ORDERED: BASA100I (11:56)
[2020-08-09] MEDS ORDERED: NS 1,000 ML IV ONE (12:30)
[2020-08-09 12:51] LABS: BASO # 0.1 10^3/uL (0.0-0.2); EOS # 0.4 10^3/uL (0.0-0.5); EOS % 5.8 % (0.0-3.0); HEMOGLOBIN 15.5 g/dl (13.5-17.5); LYMPH # 1.7 10^3/uL (1.5-5.0); MEAN CORPUSCULAR HEMOGLOBIN 29.6 pg (27.0-33.0); MEAN CORPUSCULAR HGB CONC 33.7 g/dl (32.0-36.5); MONO # 0.6 10^3/uL (0.0-0.8); MONO % 7.6 % (0.0-5.0); NEUTROPHILS # 4.5 10^3/uL (1.5-8.5); NEUTROPHILS % 60.8 % (36.0-66.0); PLATELET COUNT, AUTOMATED 186 10^3/uL (150-450); RED BLOOD COUNT 5.23 10^6/uL (4.30-6.10); VENOUS BASE EXCESS -4.5 (-2.0-2.0); VENOUS HCO3 21.5 MEQ/L (23.0-27.0); VENOUS O2 SATURATION 91.2 % (60.0-80.0); VENOUS PARTIAL PRESSURE CO2 42.6 mmHg (38.0-50.0); VENOUS PARTIAL PRESSURE O2 62.5 mmHg (30.0-50.0); VENOUS STANDARD HCO3 20.7 MEQ/L; VENOUS TOTAL CO2 22.8 MEQ/L (24.0-28.0); WHITE BLOOD COUNT 7.4 10^3/uL (4.0-10.0)
[2020-08-09 13:23] LABS: ACETONE/KETONE 1.22 MG/DL (<2.81); ALBUMIN 3.9 GM/DL (3.2-5.2); ALT/SGPT 39 U/L (12-78); BILIRUBIN,DIRECT 0.1 MG/DL (0.0-0.2); BILIRUBIN,TOTAL 0.4 MG/DL (0.2-1.0); BLOOD UREA NITROGEN 16 MG/DL (7-18); CALCIUM LEVEL 9.7 MG/DL (8.5-10.1); CARBON DIOXIDE LEVEL 28 MEQ/L (21-32); CHLORIDE LEVEL 101 MEQ/L (98-107); CREATININE FOR GFR 1.03 MG/DL (0.70-1.30); GLOMERULAR FILTRATION RATE > 60.0 (>60); GLUCOSE, FASTING 210 MG/DL (70-100); SODIUM LEVEL 135 MEQ/L (136-145); TOTAL PROTEIN 7.6 GM/DL (6.4-8.2)
[2020-08-09 13:39] LABS: HEMOGLOBIN A1c 8.6 %
[2020-08-09 14:23] LABS: APPEARANCE, URINE CLEAR (CLEAR); BACTERIA, URINE AUTO NEGATIVE (NEGATIVE); BILIRUBIN, URINE AUTO NEGATIVE (NEGATIVE); BLOOD, URINE BLOOD NEGATIVE (NEGATIVE); COLOR, URINE YELLOW (YELLOW); GLUCOSE, URINE (UA) AUTO 3+ mg/dL (NEGATIVE); KETONE, URINE AUTO NEGATIVE (NEGATIVE); LEUKOCYTE ESTERASE, URINE AUTO NEGATIVE (NEGATIVE); NITRITE, URINE AUTO NEGATIVE (NEGATIVE); PROTEIN, URINE AUTO NEGATIVE (NEGATIVE); RBC, URINE AUTO 2 /HPF (0-3); SPECIFIC GRAVITY URINE AUTO 1.035 (1.002-1.035); SQUAMOUS EPITHELIAL CELL UR AU 0 /HPF (0-6); UROBILINOGEN, URINE AUTO 0.2 mg/dL (0.0-2.0); WBC, URINE AUTO 0 /HPF (0-3)
[2020-08-09 14:43] VITALS: BP 131/79
== END 2020-08-09 14:46 | disposition home or self-care (01) ==
LOC: M ED 11:45
DX: E11.65 Type 2 diabetes mellitus with hyperglycemia (principal); E86.0 Dehydration; B19.20 Unspecified viral hepatitis C without hepatic coma; E78.5 Hyperlipidemia, unspecified; G47.33 Obstructive sleep apnea (adult) (pediatric); Z87.820 Personal history of traumatic brain injury; F17.200 Nicotine dependence, unspecified, uncomplicated; Z91.018 Allergy to other foods; Z88.0 Allergy status to penicillin; Z88.2 Allergy status to sulfonamides; Z88.6 Allergy status to analgesic agent; Z88.8 Allergy status to other drugs, medicaments and biological substances; Z88.1 Allergy status to other antibiotic agents; Z91.040 Latex allergy status; Z79.899 Other long term (current) drug therapy; Z79.4 Long term (current) use of insulin

== ENCOUNTER → 2020-08-25 | Outpatient (REF) | payer OTHER ==
[~2020-08-25] MED LIST changes: +LAMO100T3
[2020-08-25 17:24] LABS: ALBUMIN 4.2 GM/DL (3.2-5.2); ALT/SGPT 39 U/L (12-78); BILIRUBIN,TOTAL 0.5 MG/DL (0.2-1.0); BLOOD UREA NITROGEN 17 MG/DL (7-18); CALCIUM LEVEL 9.6 MG/DL (8.5-10.1); CARBON DIOXIDE LEVEL 27 MEQ/L (21-32); CHLORIDE LEVEL 99 MEQ/L (98-107); CHOLESTEROL LEVEL 206 MG/DL (<200); CHOLESTEROL RISK RATIO 6.242 (<5); CREATININE FOR GFR 1.16 MG/DL (0.70-1.30); FREE T4 0.95 NG/DL (0.76-1.46); GLOMERULAR FILTRATION RATE > 60.0 (>60); GLUCOSE, FASTING 186 MG/DL (70-100); HDL CHOLESTEROL 33 MG/DL (>40); NON-HDL-C 173 MG/DL; POTASSIUM SERUM 4.5 MEQ/L (3.5-5.1); SODIUM LEVEL 135 MEQ/L (136-145); TOTAL PROTEIN 7.9 GM/DL (6.4-8.2); TRIGLYCERIDES LEVEL 744 MG/DL (<150)
[2020-08-25 18:10] LABS: HEMOGLOBIN A1c 8.9 %
== END ==
LOC: M LAB REF 16:04
PROVIDERS: ATTEND Nurse Practitioner Family
DX: E11.9 Type 2 diabetes mellitus without complications (principal)

== ENCOUNTER → 2020-09-18 | Outpatient (CLI) | payer OTHER ==
[~2020-09-18] MED LIST changes: +MIRT-60 PO; -REME30TA PO
[2020-09-18 10:53] LABS: ALT/SGPT 38 U/L (12-78); BILIRUBIN,TOTAL 0.4 MG/DL (0.2-1.0); BLOOD UREA NITROGEN 19 MG/DL (7-18); CARBON DIOXIDE LEVEL 29 MEQ/L (21-32); CHLORIDE LEVEL 103 MEQ/L (98-107); CHOLESTEROL LEVEL 211 MG/DL (<200); CHOLESTEROL RISK RATIO 6.593 (<5); GLOMERULAR FILTRATION RATE > 60.0 (>60); GLUCOSE, FASTING 145 MG/DL (70-100); HDL CHOLESTEROL 32 MG/DL (>40); NON-HDL-C 179 MG/DL; POTASSIUM SERUM 4.1 MEQ/L (3.5-5.1); SODIUM LEVEL 137 MEQ/L (136-145); TOTAL PROTEIN 7.6 GM/DL (6.4-8.2); TRIGLYCERIDES LEVEL 677 MG/DL (<150)
== END ==
LOC: M LAB 09:29
PROVIDERS: ATTEND Nurse Practitioner Family
DX: E11.65 Type 2 diabetes mellitus with hyperglycemia (principal); E78.2 Mixed hyperlipidemia

== ENCOUNTER 2021-01-05 08:17 | Emergency (ER) | payer OTHER ==
[~2021-01-05] VITALS: Ht 172.7 cm; Wt 117.4 kg
[2021-01-05 08:18] VITALS: BP 123/82
== END 2021-01-05 13:44 | disposition home or self-care (01) ==
LOC: M ED 08:17
DX: F41.9 Anxiety disorder, unspecified (principal); F43.10 Post-traumatic stress disorder, unspecified; F42.9 Obsessive-compulsive disorder, unspecified; E11.9 Type 2 diabetes mellitus without complications; E78.9 Disorder of lipoprotein metabolism, unspecified; B19.20 Unspecified viral hepatitis C without hepatic coma; E07.9 Disorder of thyroid, unspecified; J45.909 Unspecified asthma, uncomplicated; G44.009 Cluster headache syndrome, unspecified, not intractable; Z87.820 Personal history of traumatic brain injury; R56.9 Unspecified convulsions; F17.200 Nicotine dependence, unspecified, uncomplicated; Z88.0 Allergy status to penicillin; Z88.2 Allergy status to sulfonamides; Z88.6 Allergy status to analgesic agent; Z88.8 Allergy status to other drugs, medicaments and biological substances; Z88.1 Allergy status to other antibiotic agents; Z91.018 Allergy to other foods; Z79.899 Other long term (current) drug therapy; Z79.4 Long term (current) use of insulin

== ENCOUNTER 2021-01-25 17:26 | Inpatient (IN) | payer MEDICAID, OTHER ==
[~2021-01-25] VITALS: Ht 172.7 cm; Wt 115.7 kg
[2021-01-25 18:40] LABS: HEMATOCRIT 49.9 % (42.0-52.0); HEMOGLOBIN 17.2 g/dl (13.5-17.5); MEAN CORPUSCULAR HEMOGLOBIN 29.7 pg (27.0-33.0); MEAN CORPUSCULAR HGB CONC 34.5 g/dl (32.0-36.5); MEAN CORPUSCULAR VOLUME 86.2 fl (80.0-96.0); PLATELET COUNT, AUTOMATED 259 10^3/uL (150-450); RED BLOOD COUNT 5.79 10^6/uL (4.30-6.10); WHITE BLOOD COUNT 10.9 10^3/uL (4.0-10.0)
[2021-01-25 19:28] LABS: BLOOD UREA NITROGEN 11 MG/DL (7-18); GLUCOSE, FASTING 160 MG/DL (70-100)
[2021-01-25 19:29] LABS: ALT/SGPT 36 IU/L (0-32); BILIRUBIN,DIRECT 0.1 MG/DL (0.0-0.2); BILIRUBIN,TOTAL 0.4 MG/DL (0.2-1.0); CALCIUM LEVEL 9.3 MG/DL (8.5-10.1); CARBON DIOXIDE LEVEL 20 mmol/L (20-29); CHLORIDE LEVEL 102 MEQ/L (98-107); CREATININE FOR GFR 0.87 MG/DL (0.70-1.30); GLOMERULAR FILTRATION RATE > 60.0 (>60); POTASSIUM SERUM 3.7 MEQ/L (3.5-5.1); SODIUM LEVEL 135 MEQ/L (136-145); TOTAL PROTEIN 7.9 GM/DL (6.4-8.2)
[2021-01-25 19:30] LABS: AMPHETAMINES LEVEL URINE NEGATIVE (NEGATIVE); BARBITURATES URINE NEGATIVE (NEGATIVE); BENZODIAZEPINES URINE NEGATIVE (NEGATIVE); CANNABINOIDS URINE NEGATIVE (NEGATIVE); COCAINE METABOLITE URINE NEGATIVE (NEGATIVE); ETHYL ALCOHOL (ETHANOL) 0.166 % (0.000-0.010); METHADONE URINE NEGATIVE (NEGATIVE); OPIATES URINE NEGATIVE (NEGATIVE); SALICYLATE LEVEL 3.3 MG/DL (5.0-30.0)
[2021-01-25 19:31] LABS: ACETAMINOPHEN LEVEL < 2.0 UG/ML (10.0-30.0); PHENCYCLIDINE URINE NEGATIVE (NEGATIVE)
[2021-01-26] MEDS ORDERED: ACETAMINOPHEN TAB 650MG DOSE (2X325MG) PO ONE (00:15)
[2021-01-26] MEDS ORDERED: LORazepam 1 MG TAB PO ONE (00:15)
[2021-01-26] MEDS ORDERED: PROP40TA62 PO (00:52)
[2021-01-26] MEDS ORDERED: LAMO100T3 PO (00:52)
[2021-01-26] MEDS ORDERED: OMEP-221 PO (00:52)
[2021-01-26] MEDS ORDERED: ZIPR80CA12 PO (00:52)
[2021-01-26] MEDS ORDERED: GABA-845 PO (00:52)
[2021-01-26] MEDS ORDERED: CLON0.5T2 PO (00:52)
[2021-01-26] MEDS ORDERED: STEG15TA PO (00:52)
[2021-01-26] MEDS ORDERED: SIMV20TA22 PO (00:52)
[2021-01-26] MEDS ORDERED: SYNT25TA PO (00:52)
[2021-01-26] MEDS ORDERED: METF-838 PO (00:52)
[2021-01-26] MEDS ORDERED: BASA100I SC (00:52)
[2021-01-26] MEDS ORDERED: IBUP1TAB7 PO (00:52)
[2021-01-26] MEDS ORDERED: FENO134C PO (00:52)
[2021-01-26] MEDS ORDERED: BUSP15TA47 PO (00:52)
[2021-01-26] MEDS ORDERED: MAALOX 30 ML SUSP *UDC PO PRN (04:25)
[2021-01-26] MEDS ORDERED: MOM 30ML SUSPENSION UDC PO PRN (04:25)
[2021-01-26] MEDS ORDERED: traZODone 50 MG TAB PO PRN (04:25)
[2021-01-26] MEDS ORDERED: ACETAMINOPHEN TAB 650MG DOSE (2X325MG) PO PRN (04:25)
[2021-01-26] MEDS ORDERED: GLUCOSE 4GM CHEW TABLET PO PRN (04:50)
[2021-01-26] MEDS ORDERED: GLUCAGON INJ 1MG VIAL SC PRN (04:50)
[2021-01-26] MEDS ORDERED: DEXTROSE 50% 50 ML SYRINGE IV PRN (04:50)
[2021-01-26] MEDS: LEVOTHYROXINE 25MCG TABLET (0.025MG) PO SCH (06:57)
[2021-01-26] MEDS: HumaLOG INSULIN (NovoLOG) PER UNIT SC SCH ×4 (08:08→21:00)
[2021-01-26] MEDS: GABAPENTIN 400MG CAP PO SCH ×3 (09:00→21:17)
[2021-01-26] MEDS: PROPRANOLOL 20 MG TAB PO SCH ×3 (09:00→21:17)
[2021-01-26] MEDS ORDERED: ZIPRASIDONE 80 MG CAP (GEODON) PO SCH (09:00)
[2021-01-26] MEDS: busPIRone 5 MG TAB PO SCH ×3 (09:00→21:17)
[2021-01-26] MEDS ORDERED: LORazepam 2 MG TAB PO ONE ×2 (10:20→10:35)
[2021-01-26] MEDS: ZIPRASIDONE 80 MG CAP (GEODON) PO SCH ×2 (12:22→21:18)
[2021-01-26] MEDS: metFORMIN XR 500MG TAB *GLUCOPHAGE XR PO SCH ×2 (12:22→21:17)
[2021-01-26] MEDS: lamoTRIgine 100MG TAB PO SCH (12:22)
[2021-01-26] MEDS: OMEPRAZOLE 20 MG CAP PO SCH (12:22)
[2021-01-26] MEDS: SIMVASTATIN 20 MG TAB PO SCH (12:22)
[2021-01-26 16:13] VITALS: BP 142/96
[2021-01-26] MEDS ORDERED: LEVEMIR (INSULIN DETEMIR) 1 UNITS/0.01ML SC ONE (21:00)
[2021-01-26] MEDS: LEVEMIR (INSULIN DETEMIR) 1 UNITS/0.01ML SC SCH (21:17)
[2021-01-27] MEDS: LEVOTHYROXINE 25MCG TABLET (0.025MG) PO SCH (06:05)
[2021-01-27] MEDS: HumaLOG INSULIN (NovoLOG) PER UNIT SC SCH ×4 (06:56→21:00)
[2021-01-27 07:37] VITALS: BP 133/85
[2021-01-27] MEDS: busPIRone 5 MG TAB PO SCH ×3 (07:48→21:53)
[2021-01-27] MEDS: lamoTRIgine 100MG TAB PO SCH (07:49)
[2021-01-27] MEDS: PROPRANOLOL 20 MG TAB PO SCH ×3 (07:49→21:52)
[2021-01-27] MEDS: OMEPRAZOLE 20 MG CAP PO SCH (07:49)
[2021-01-27] MEDS: GABAPENTIN 400MG CAP PO SCH ×3 (07:49→21:53)
[2021-01-27] MEDS: metFORMIN XR 500MG TAB *GLUCOPHAGE XR PO SCH ×2 (07:49→21:53)
[2021-01-27] MEDS: ZIPRASIDONE 80 MG CAP (GEODON) PO SCH ×2 (07:50→21:52)
[2021-01-27] MEDS: SIMVASTATIN 20 MG TAB PO SCH (07:50)
[2021-01-27] MEDS: IBUPROFEN 800 MG TAB PO PRN ×2 (07:50→21:53)
[2021-01-27] MEDS: clonazePAM 0.5 MG TAB PO PRN (11:35)
[2021-01-27 16:09] VITALS: BP 129/77
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
[2021-01-27] MEDS: LEVEMIR (INSULIN DETEMIR) 1 UNITS/0.01ML SC SCH (21:56)
[2021-01-28] MEDS: LEVOTHYROXINE 25MCG TABLET (0.025MG) PO SCH (06:02)
[2021-01-28] MEDS: clonazePAM 0.5 MG TAB PO PRN (06:11)
[2021-01-28] MEDS: HumaLOG INSULIN (NovoLOG) PER UNIT SC SCH ×4 (06:41→20:51)
[2021-01-28 07:25] LABS: CHOLESTEROL LEVEL 204 MG/DL (<200); CHOLESTEROL RISK RATIO 7.285 (<5); HDL CHOLESTEROL 28 MG/DL (>40); NON-HDL-C 176 MG/DL; TRIGLYCERIDES LEVEL 764 MG/DL (<150)
[2021-01-28] MEDS: SIMVASTATIN 20 MG TAB PO SCH (08:08)
[2021-01-28] MEDS: metFORMIN XR 500MG TAB *GLUCOPHAGE XR PO SCH ×2 (08:08→20:41)
[2021-01-28] MEDS: PROPRANOLOL 20 MG TAB PO SCH ×3 (08:08→20:49)
[2021-01-28] MEDS: IBUPROFEN 800 MG TAB PO PRN (08:08)
[2021-01-28] MEDS: OMEPRAZOLE 20 MG CAP PO SCH (08:08)
[2021-01-28] MEDS: lamoTRIgine 100MG TAB PO SCH (08:08)
[2021-01-28] MEDS: GABAPENTIN 400MG CAP PO SCH ×3 (08:09→20:41)
[2021-01-28] MEDS: ZIPRASIDONE 80 MG CAP (GEODON) PO SCH ×2 (08:09→20:41)
[2021-01-28] MEDS: busPIRone 5 MG TAB PO SCH ×3 (08:09→20:40)
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
[2021-01-28 17:05] VITALS: BP 126/79
[2021-01-28] MEDS: LEVEMIR (INSULIN DETEMIR) 1 UNITS/0.01ML SC SCH (20:40)
[2021-01-28] MEDS: hydrOXYzine 50 MG TAB PO SCH (21:21)
[2021-01-29] MEDS: LEVOTHYROXINE 25MCG TABLET (0.025MG) PO SCH (06:00)
[2021-01-29 06:26] VITALS: BP 155/83
[2021-01-29] MEDS: HumaLOG INSULIN (NovoLOG) PER UNIT SC SCH ×4 (06:41→20:24)
[2021-01-29] MEDS: busPIRone 5 MG TAB PO SCH ×3 (08:47→20:17)
[2021-01-29] MEDS: PROPRANOLOL 20 MG TAB PO SCH ×3 (08:48→20:18)
[2021-01-29] MEDS: SIMVASTATIN 20 MG TAB PO SCH (08:49)
[2021-01-29] MEDS: OMEPRAZOLE 20 MG CAP PO SCH (08:49)
[2021-01-29] MEDS: lamoTRIgine 100MG TAB PO SCH (08:50)
[2021-01-29] MEDS: GABAPENTIN 400MG CAP PO SCH ×3 (08:50→20:18)
[2021-01-29] MEDS: hydrOXYzine 50 MG TAB PO SCH ×2 (08:50→20:18)
[2021-01-29] MEDS: metFORMIN XR 500MG TAB *GLUCOPHAGE XR PO SCH ×2 (08:51→20:17)
[2021-01-29] MEDS: ZIPRASIDONE 80 MG CAP (GEODON) PO SCH ×2 (08:51→20:17)
[2021-01-29 18:05] VITALS: BP 127/79
[2021-01-29] MEDS: clonazePAM 0.5 MG TAB PO PRN (20:17)
[2021-01-29] MEDS: LEVEMIR (INSULIN DETEMIR) 1 UNITS/0.01ML SC SCH (20:17)
[2021-01-29] MEDS: IBUPROFEN 800 MG TAB PO PRN (20:18)
[2021-01-30] MEDS: LEVOTHYROXINE 25MCG TABLET (0.025MG) PO SCH (06:15)
[2021-01-30] MEDS: HumaLOG INSULIN (NovoLOG) PER UNIT SC SCH ×4 (06:31→20:12)
[2021-01-30] MEDS: PROPRANOLOL 20 MG TAB PO SCH ×3 (09:09→20:12)
[2021-01-30] MEDS: lamoTRIgine 100MG TAB PO SCH (09:10)
[2021-01-30] MEDS: busPIRone 5 MG TAB PO SCH ×3 (09:10→20:12)
[2021-01-30] MEDS: SIMVASTATIN 20 MG TAB PO SCH (09:10)
[2021-01-30] MEDS: ZIPRASIDONE 80 MG CAP (GEODON) PO SCH ×2 (09:10→20:12)
[2021-01-30] MEDS: hydrOXYzine 50 MG TAB PO SCH ×2 (09:11→20:11)
[2021-01-30] MEDS: OMEPRAZOLE 20 MG CAP PO SCH (09:11)
[2021-01-30] MEDS: GABAPENTIN 400MG CAP PO SCH ×3 (09:11→20:11)
[2021-01-30] MEDS: metFORMIN XR 500MG TAB *GLUCOPHAGE XR PO SCH ×2 (09:11→20:11)
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
[2021-01-30] MEDS: IBUPROFEN 800 MG TAB PO PRN (17:00)
[2021-01-30 18:00] VITALS: BP 144/83
[2021-01-30] MEDS: clonazePAM 0.5 MG TAB PO PRN (20:11)
[2021-01-30] MEDS: LEVEMIR (INSULIN DETEMIR) 1 UNITS/0.01ML SC SCH (20:14)
[2021-01-31] MEDS: LEVOTHYROXINE 25MCG TABLET (0.025MG) PO SCH (06:15)
[2021-01-31 06:46] VITALS: BP 134/95
[2021-01-31] MEDS: HumaLOG INSULIN (NovoLOG) PER UNIT SC SCH (06:59)
[2021-01-31 08:28] VITALS: BP 134/95
[2021-01-31] MEDS: PROPRANOLOL 20 MG TAB PO SCH (08:28)
[2021-01-31] MEDS: lamoTRIgine 100MG TAB PO SCH (08:28)
[2021-01-31] MEDS: SIMVASTATIN 20 MG TAB PO SCH (08:28)
[2021-01-31] MEDS: ZIPRASIDONE 80 MG CAP (GEODON) PO SCH (08:28)
[2021-01-31] MEDS: busPIRone 5 MG TAB PO SCH (08:29)
[2021-01-31] MEDS: GABAPENTIN 400MG CAP PO SCH (08:29)
[2021-01-31] MEDS: OMEPRAZOLE 20 MG CAP PO SCH (08:29)
[2021-01-31] MEDS: hydrOXYzine 50 MG TAB PO SCH (08:30)
[2021-01-31] MEDS: metFORMIN XR 500MG TAB *GLUCOPHAGE XR PO SCH (08:30)
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
[2021-02-01] MEDS ORDERED: CLON0.5T2 PO (12:27)
== END 2021-01-31 10:30 | disposition home or self-care (01) | DRG 753 ==
LOC: M ED 17:26 → EEVIPCON 17:27 → M ED INP 17:27 → M PSY 01-26 11:10
PROVIDERS: ADMIT Psychiatry & Neurology Psychiatry; ATTEND Psychiatry & Neurology Psychiatry
DX: F39 Unspecified mood [affective] disorder (principal); F25.9 Schizoaffective disorder, unspecified; K21.9 Gastro-esophageal reflux disease without esophagitis; K58.9 Irritable bowel syndrome, unspecified; J32.9 Chronic sinusitis, unspecified; F10.129 Alcohol abuse with intoxication, unspecified; E03.9 Hypothyroidism, unspecified; Z62.810 Personal history of physical and sexual abuse in childhood; Z62.811 Personal history of psychological abuse in childhood; Z79.899 Other long term (current) drug therapy; Z88.0 Allergy status to penicillin; Z88.2 Allergy status to sulfonamides; Z88.6 Allergy status to analgesic agent; Z88.1 Allergy status to other antibiotic agents; Z88.8 Allergy status to other drugs, medicaments and biological substances; Z91.018 Allergy to other foods; Z63.5 Disruption of family by separation and divorce; Z87.820 Personal history of traumatic brain injury; Z86.14 Personal history of Methicillin resistant Staphylococcus aureus infection

== ENCOUNTER 2021-05-18 19:43 | Emergency (ER) | payer MEDICAID, OTHER ==
[~2021-05-18] VITALS: Ht 172.7 cm; Wt 119.9 kg
[~2021-05-18 19:43] MED LIST changes: +BASA100I SC; +BUSP15TA47 PO; +CLON0.5T17 PO; +CLON0.5T2 PO; +GABA-283 PO; -GABA-845 PO; +IBUP1TAB7 PO; +LAMO100T3 PO; +METF-838 PO; -OLAN10TA2; -OLAN10TA2 PO; +OLAN1TAB20; +OLAN1TAB20 PO; +OMEP-221 PO; +OMEP40CA4 PO; -OMEP40CA97 PO; +PROP40TA62 PO; +SIMV20TA22 PO; +STEG15TA PO; +SYNT25TA PO; +ZIPR80CA12 PO
[2021-05-18 20:49] LABS: BASO # 0.1 10^3/uL (0.0-0.2); BASO % 1.3 % (0.0-1.0); EOS # 0.4 10^3/uL (0.0-0.5); EOS % 6.5 % (0.0-3.0); HEMATOCRIT 46.9 % (42.0-52.0); HEMOGLOBIN 15.7 g/dl (13.5-17.5); LYMPH # 1.5 10^3/uL (1.5-5.0); LYMPH % 23.9 % (24.0-44.0); MEAN CORPUSCULAR HEMOGLOBIN 29.3 pg (27.0-33.0); MEAN CORPUSCULAR HGB CONC 33.5 g/dl (32.0-36.5); MEAN CORPUSCULAR VOLUME 87.7 fl (80.0-96.0); MONO # 0.5 10^3/uL (0.0-0.8); MONO % 8.4 % (2.0-8.0); NEUTROPHILS # 3.7 10^3/uL (1.5-8.5); NEUTROPHILS % 57.8 % (36.0-66.0); PLATELET COUNT, AUTOMATED 190 10^3/uL (150-450); RED BLOOD COUNT 5.35 10^6/uL (4.30-6.10); WHITE BLOOD COUNT 6.3 10^3/uL (4.0-10.0)
[2021-05-18 21:19] LABS: ALBUMIN 3.6 GM/DL (3.2-5.2); ALT/SGPT 36 U/L (12-78); BILIRUBIN,DIRECT 0.1 MG/DL (0.0-0.2); BILIRUBIN,TOTAL 0.4 MG/DL (0.2-1.0); BLOOD UREA NITROGEN 9 MG/DL (7-18); CALCIUM LEVEL 8.2 MG/DL (8.5-10.1); CARBON DIOXIDE LEVEL 28 MEQ/L (21-32); CHLORIDE LEVEL 104 MEQ/L (98-107); CREATININE FOR GFR 0.93 MG/DL (0.70-1.30); GLOMERULAR FILTRATION RATE > 60.0 (>60); GLUCOSE, FASTING 159 MG/DL (70-100); LIPASE 195 U/L (73-393); POTASSIUM SERUM 3.9 MEQ/L (3.5-5.1); SODIUM LEVEL 137 MEQ/L (136-145)
[2021-05-18] MEDS ORDERED: ISOVUE-370 76% 100ML VIAL As Ordered ONE (22:26)
--- NOTE | 2021-05-18 23:28 | REPVR ---
PROCEDURE INFORMATION: Exam: CT Abdomen And Pelvis With Contrast Exam date and time: 05/18/2021 10:39 PM Age: 45 years old Clinical indication: Abdominal pain; Localized; Left lower quadrant (llq); Additional info: Llq pain TECHNIQUE: Imaging protocol: Computed tomography of the abdomen and pelvis with contrast. Radiation optimization: All CT scans at this facility use at least one of these dose optimization techniques: automated exposure control; mA and/or kV adjustment per patient size (includes targeted exams where dose is matched to clinical indication); or iterative reconstruction. Contrast material: ISOVUE 370; Contrast volume: 100 ml; Contrast route: INTRAVENOUS (IV); COMPARISON: CT ABD PELVIS WITH CONTRAST 10/19/2016 1:45 PM FINDINGS: Lungs: Minimal fibro-atelectatic change in the right middle lobe. Liver: The liver attenuation is 18 Hounsfield units and the spleen is 94 Hounsfield units. The liver at mid clavicular line measures 16.8 cm. Gallbladder and bile ducts: The gallbladder is somewhat contracted with no stones. Pancreas: Normal. No ductal dilation. Spleen: Normal. No splenomegaly. Adrenal glands: Normal. No mass. Kidneys and ureters: There is a left renal cyst measuring up to 13 mm which is redemonstrated and increased in size since the prior study. This appears to reflect a simple cyst. No follow-up imaging is recommended. Stomach and bowel: Unremarkable. No obstruction. No mucosal thickening. Appendix: A normal appendix is seen. Intraperitoneal space: Unremarkable. No free air. No significant fluid collection. Vasculature: Unremarkable. No abdominal aortic aneurysm. Lymph nodes: Unremarkable. No enlarged lymph nodes. Urinary bladder: Unremarkable as visualized. Reproductive: Unremarkable as visualized. Bones/joints: Scattered bone islands are noted in the pelvis. Soft tissues: Unremarkable. IMPRESSION: 1. Borderline hepatomegaly with fatty infiltration. 2. Otherwise negative CT abdomen/pelvis. No diverticulosis. No renal or ureteral calculi are evident and there is no evidence of obstructive uropathy. Electronically signed by: Benny Mcintosh On 05/18/2021 23:27:58 PM
[2021-05-19 00:56] VITALS: BP 147/92
== END 2021-05-19 01:00 | disposition home or self-care (01) ==
LOC: M ED 20:59
DX: R10.9 Unspecified abdominal pain (principal); B19.20 Unspecified viral hepatitis C without hepatic coma; E07.9 Disorder of thyroid, unspecified; F43.10 Post-traumatic stress disorder, unspecified; F42.9 Obsessive-compulsive disorder, unspecified; G89.29 Other chronic pain; K21.9 Gastro-esophageal reflux disease without esophagitis; K58.9 Irritable bowel syndrome, unspecified; E66.9 Obesity, unspecified; Z86.14 Personal history of Methicillin resistant Staphylococcus aureus infection; Z87.820 Personal history of traumatic brain injury; F17.210 Nicotine dependence, cigarettes, uncomplicated
CPT/HCPCS: 36415; 74177; 80048; 80076; 83690; 85025; 93041; 99285; Q9967

== ENCOUNTER 2021-06-15 13:36 | Emergency (ER) | payer OTHER, MEDICAID ==
[2021-06-15 14:33] LABS: HEMATOCRIT 50.8 % (42.0-52.0); HEMOGLOBIN 17.2 g/dl (13.5-17.5); MEAN CORPUSCULAR HEMOGLOBIN 29.3 pg (27.0-33.0); MEAN CORPUSCULAR HGB CONC 33.9 g/dl (32.0-36.5); MEAN CORPUSCULAR VOLUME 86.4 fl (80.0-96.0); PLATELET COUNT, AUTOMATED 226 10^3/uL (150-450); RED BLOOD COUNT 5.88 10^6/uL (4.30-6.10); WHITE BLOOD COUNT 8.8 10^3/uL (4.0-10.0)
[2021-06-15 14:56] LABS: AMPHETAMINES LEVEL URINE NEGATIVE (NEGATIVE); BARBITURATES URINE NEGATIVE (NEGATIVE); BENZODIAZEPINES URINE NEGATIVE (NEGATIVE); CANNABINOIDS URINE NEGATIVE (NEGATIVE); COCAINE METABOLITE URINE NEGATIVE (NEGATIVE); METHADONE URINE NEGATIVE (NEGATIVE); OPIATES URINE NEGATIVE (NEGATIVE); PHENCYCLIDINE URINE NEGATIVE (NEGATIVE)
[2021-06-15 15:07] LABS: ACETAMINOPHEN LEVEL < 2.0 UG/ML (10.0-30.0); ALBUMIN 4.1 GM/DL (3.2-5.2); ALT/SGPT 36 U/L (12-78); BILIRUBIN,DIRECT 0.1 MG/DL (0.0-0.2); BILIRUBIN,TOTAL 0.3 MG/DL (0.2-1.0); BLOOD UREA NITROGEN 9 MG/DL (7-18); CARBON DIOXIDE LEVEL 27 MEQ/L (21-32); CHLORIDE LEVEL 105 MEQ/L (98-107); CREATININE FOR GFR 1.05 MG/DL (0.70-1.30); ETHYL ALCOHOL (ETHANOL) 0.166 % (0.000-0.010); GLOMERULAR FILTRATION RATE > 60.0 (>60); GLUCOSE, FASTING 117 MG/DL (70-100); POTASSIUM SERUM 3.9 MEQ/L (3.5-5.1); SALICYLATE LEVEL 3.9 MG/DL (5.0-30.0); SODIUM LEVEL 139 MEQ/L (136-145); THYROID STIMULATING HORMONE 0.933 uIU/ML (0.358-3.740); TOTAL PROTEIN 7.6 GM/DL (6.4-8.2)
[2021-06-15] MEDS ORDERED: ACETAMINOPHEN TAB 650MG DOSE (2X325MG) PO ONE (15:25)
[2021-06-15] MEDS ORDERED: BUSP30TA PO (19:41)
[2021-06-15] MEDS ORDERED: CLON0.5T2 PO (19:41)
[2021-06-15] MEDS ORDERED: LAMO150T3 PO (19:41)
[2021-06-15 21:54] VITALS: BP 132/82
== END 2021-06-15 21:55 | disposition home or self-care (01) ==
LOC: M ED 13:36
DX: F43.20 Adjustment disorder, unspecified (principal); E07.9 Disorder of thyroid, unspecified; F41.9 Anxiety disorder, unspecified; F43.10 Post-traumatic stress disorder, unspecified; R56.9 Unspecified convulsions; K21.9 Gastro-esophageal reflux disease without esophagitis; G89.29 Other chronic pain; B19.20 Unspecified viral hepatitis C without hepatic coma; Z87.820 Personal history of traumatic brain injury; Z88.0 Allergy status to penicillin; Z88.1 Allergy status to other antibiotic agents; Z88.2 Allergy status to sulfonamides; Z88.8 Allergy status to other drugs, medicaments and biological substances; Z91.018 Allergy to other foods; Z91.040 Latex allergy status; Z79.899 Other long term (current) drug therapy; Z79.890 Hormone replacement therapy; Z79.84 Long term (current) use of oral hypoglycemic drugs

== ENCOUNTER 2021-08-12 12:59 | Emergency (ER) | payer MEDICAID, OTHER ==
[~2021-08-12] VITALS: Ht 172.7 cm; Wt 113.6 kg
[~2021-08-12 12:59] MED LIST changes: +BUSP30TA PO; +LAMO150T3 PO
[2021-08-12 13:00] VITALS: BP 121/71
--- OUTSIDE RECORDS SUMMARY | 2021-08-12 13:07 | CCD ---
Author Author ChetnaLink Corey Organization Unknown Address [address] [place] [address] Phone Care Team Providers Care Material Scheduler Name Role Phone Corey Basilio PCP Allergies, Adverse Reactions, Alerts Concept Allergy Name Reaction Severity Onset Date Status Documentation Date Phone Number Npid Taxonomy Code Taxonomy Desc Author Last Name Author Fi rst Name Concept Type 999303 chlorpromazine Photosensitivity 04/11/2018 Active 03/10 [id number] Psychiatric/Mental Health Gaudencio Haddad RXNORM 476 Penicillins Mild 02/05/2013 Active 02/05/2013 [id number] Nurse Practitioner Marciano Soria FDDC Problem List Concept Problem Description Status Start Date Created Date Resolv ed Date Snomed Code F31.63 Bipolar disord, crnt epsd mixed, severe, w/o psy ch features Active 08/13/2018 08/13/2018 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 Active 05/31/2021 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 08/20/2016 016 F17.200 Tobacco Use Disorder, Moderate Active 1 Medications Rx Norm Medication Route Route Concept Start Date Stop Date Dosage Galindo quency Duration Formula Strength Dosage Form Dosage Form Code Dosage Description Medication Id Account Npid Author First Name Author Last Name Taxonomy Code Taxonomy Desc Phone Number [phone] gabapentin 03/13/2020 400 mg capsule 41244 [id number] [id number] Adrienne García [id number] Psychiatric/Mental Health 31 [phone] 745150 ziprasidone HCl by mouth [id number] 10/25/2020 twice a day 80 mg capsule 92535 726975 [id number] Adrienne Ricky [id number] Psychiatr ic/Mental Health [id number] 015832 propranolol by mouth [id number] 12/11/2020 twice a day 40 mg t ablet 79645 [id number] [id number] Adrienne García [id number] Psychiatric/Mental Health [phone] 816639 lamotrigine by mouth [id number] 02/22/2021 once a day 150 mg t ablet 34260 025080 [id number] Adrienne García [id number] Psychiatric/Mental Health [phone] 101179 trazodone 03/22/2021 at bedtime 100 mg tablet 21034 703920 [id number] Adrienne García [id number] Psychiatric/Mental Health 31 [phone] Social History Social History Element Description Concept Effective Date Smoking Status Unknown if ever smoked [id number] Immunizations No Data in Section Vital Signs No Data in Section Procedures Date Concept Id Description Targeted Site Concept Targeted Site Concept Type 05/31/2021 79393 Brief Individual Psychotherapy - 30 min CPT Patient has no history of implantable de vices Encounters Encounter Start Date End Date Encounter Type Description Diagnosis Di agnosis Desc Location Author First Name Author Last Name Npid Taxonomy Cod e Taxonomy Desc Phone Number Location Addr1 Location Addr2 Location [facility] Location [facility] Location Zip [id number] 05/31/2021 05/31/2021 19252 Brief Individual Psychoth erapy - 30 min F31.63 Bipolar disord, crnt epsd mixed, severe, w/o psych fea [facility] [id number] Art Thera pist [phone] [address] [phone] Plan of Treatment No Data in Section Lab Results No Data in Section Instructions No Data in Section Insurance Providers Insurance Id Policy Effective Date Policy Thru Date Company N sydnee [id number] [address]
--- OUTSIDE RECORDS SUMMARY | 2021-08-12 13:07 | CCD ---
Author Author Chetna[employer] Corey Organization Unknown Address [address] [address] Phone Care Team Providers Care Degree Clerk Name Role Phone Corey Basilio PCP Allergies, Adverse Reactions, Alerts Concept Allergy Name Reaction Severity Onset Date Status Documentation Date Phone Number Npid Taxonomy Code Taxonomy Desc Author Last Name Author Fi rst Name Concept Type 476615 chlorpromazine Photosensitivity 04/11/2018 Active 03/10 [id number] Psychiatric/Mental Health Gaudencio Haddad RXNORM 476 Penicillins Mild 02/05/2013 Active 02/05/2013 [id number] Nurse Practitioner Marciano Soria FDDC Problem List Concept Problem Description Status Start Date Created Date Resolv ed Date Snomed Code F31.63 Bipolar disord, crnt epsd mixed, severe, w/o psy ch features Active 08/13/2018 08/13/2018 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 Active 06/14/2021 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 08/20/2016 016 F17.200 Tobacco Use Disorder, Moderate Active Medications Rx Norm Medication Route Route Concept Start Date Stop Date Dosage Galindo quency Duration Formula Strength Dosage Form Dosage Form Code Dosage Description Medication Id Account Npid Author First Name Author Last Name Taxonomy Code Taxonomy Desc Phone Number [phone] propranolol by mouth [id number] 12/11/2020 twice a day 40 mg t ablet 30066 135125 [phone] Adrienne García [id number] Psychiatric/Mental Health [phone] 939060 trazodone 03/22/2021 at bedtime 100 mg tablet 34791 973624 [id number] Adrienne García [id number] Psychiatric/Mental Health 31 [phone] 888257 clonazepam 05/30/2021 06/29/2021 30 0.5 mg tablet 90298 488372 [id number] Russell Montenegro [id number] Nurse Practitioner [phone] 108471 buspirone by mouth [id number] 06/07/2021 08/06/2021 twice a day 30 30 mg tablet 05361 131148 [id number] Susanne Bryan [id number] Nurse Sheri jarquintitioneunice [id number] 126993 lamotrigine by mouth R76174 02/22/2021 08/06/2021 once a day 30 150 mg tablet 78780 840802 [id number] Susanne Bryan [id number] Nurse Sheri jarquintitioneunice [id number] 814472 ziprasidone HCl by mouth I48054 10/25/2020 08/06/2021 twice a d ay 30 80 mg capsule 31541 811436 [id number] Susanne Bryan [id number] Nurse Practitioner [phone] 452436 gabapentin by mouth G67050 03/13/2020 07/04/2021 three times a day 30 400 mg capsule 65567 756226 [id number] Susanne Bryan [id number] Nurse Practitioner [id number] Social History Social History Element Description Concept Effective Date Smoking Status Unknown if ever smoked [id number] Immunizations No Data in Section Vital Signs No Data in Section Procedures Date Concept Id Description Targeted Site Concept Targeted Site Concept Type 06/14/2021 21131-24 TEMPMHCTelemed 30" Psychotherapy CPT Patient has no history of implantable de vices Encounters Encounter Start Date End Date Encounter Type Description Diagnosis Di agnosis Desc Location Author First Name Author Last Name Npid Taxonomy Cod e Taxonomy Desc Phone Number Location Addr1 Location Addr2 Location [facility] Location [place] Location Zip [id number] 06/14/2021 06/14/2021 85037-09 TEMPMHCTelemed 30" Psychothe rapy F31.63 Bipolar disord, crnt epsd mixed, severe, w/o psych features [facility] [phone] [id number] Art Therapist [phone] [address] Plan of Treatment No Data in Section Lab Results No Data in Section Instructions No Data in Section Insurance Providers Insurance Id Policy Effective Date Policy Thru Date Company N sydnee [id number] [address]
--- OUTSIDE RECORDS SUMMARY | 2021-08-12 13:07 | CCD | Continuity of Care Document ---
Author Author Link VENTURA DPM Organization Unknown Address [address] [place] [address], [facility] [address] [place] [address] Phone [phone] Care Team Providers Care Operational Communication Chief Name Role Phone MD Steven VelozM [phone] Problems Active Problems Provider Date Cellulitis of right toe Kash Ventura DPM Onset: 10/07/20 20 Cellulitis of left toe Kash Ventura DPM Onset: 0 Ingrowing nail Kash Ventura DPM Onset: 10/07/2020 Type 2 diabetes mellitus Kash Ventura DPM Onset: 020 Social History Type Date Description Comments Sex Unknown ETOH Use Denies alcohol use Tobacco Use Start: Unknown Patient is a current smoker, smo kes every day 26 hx of smoking 15 cigs daily Allergies, Adverse Reactions, Alerts Active Allergies Criticality Reaction | Severity Comments Date Aspirin Unable to assess criticality 09/25/2020 Baclofen Unable to assess criticality 09/25/2020 Carisoprodol Unable to assess criticality 09/25/2020 Latex Unable to assess criticality 09/25/2020 Penicillin V Potassium Unable to assess criticality 09/25/2020 Sulfa Unable to assess criticality 09/25/2020 [place]ut Unable to assess criticality 09/25/2020 Strawberries Unable to assess criticality 09/25/2020 Medications Active Medications SIG Qnty Indications Ordering Provide r Date Benztropine Mesylate 0.5mg Tablets Take One Tablet By Mouth Every Day Unknown Mirtazapine 45mg Tablets Take One Tablet By Mouth AT Bedtime Unknown Trulicity 0.75mg/0.5 ML Solution Pen-Inject Maia Juan NP Dok 100mg Capsules Unknown Cefdinir 300mg Capsules Take One Capsule By Mouth Every 12 Hours For 7 Days Unknown Mirtazapine 15mg Tablets Take One Tablet By Mouth Every Day AT Bedtime Unknown Buspirone HCL 10mg Tablets Unknown Triamcinolone Acetonide 0.1% Cream Apply One Application Twice A Day To Hands For 14 Days Then as Needed For Eczema Flares Unknown Ketoconazole 2% Shampoo Apply 5ML Every Other Day In Shower To Scalp And Forehead Leave On For A Few Minutes Before Rinsing Unknown Buspirone HCL 7.5mg Tablets Take One Tablet By Mouth Twice A Day Unknown Lamotrigine 25mg Tablets Unknown Famotidine 20mg Tablets Unknown BD Pen Needle/Short/Ultra-Fine/31G X 8mm 31G X 8 mm Misc Use as Directed Once Daily Unknown Clonazepam 1mg Tablets Unknown Amitriptyline HCL 75mg Tablets Unknown Benzonatate 200mg Capsules MD Partida Warren Albuterol Sulfate HFA 108(90Base) mcg/Act Aerosol Inhale Two Puffs By Mouth Three Times A Day For 10 Days Unknown Azithromycin 250mg Tablets Courtney Hadley RPA Vitamin D (Ergocalciferol) 1.25mg (44183 Ut) Capsules Take One Capsule By Mouth Once Weekly Rui dill Fenofibrate Micronized 134mg Capsu les Take One Capsule By Mouth Every Day Unknown 0 Basaglar Kwikpen 100 Unit/ML Solution Pen-Inject MD Steven Veloz Levothyroxine Sodium 25mcg Tablets Take One Tablet By Mouth Every Day Unknown Senna 8.6mg Tablets Unknown Simvastatin 10mg Tablets MD Steven Veloz Steglatro 5mg Tablets Maia Juan NP Ziprasidone HCL 80mg Capsules Unknown Propranolol HCL 40mg Tablets Unknown Buspirone HCL 15mg Tablets Unknown Clonazepam 0.5mg Tablets Unknown Omeprazole 40mg Capsules DR Unknown Onetouch Verio Strips Use To Check Blood Sugar Three Times A Day Unknown 00 Clindamycin HCL 150mg Capsules MD Steven Veloz Metformin HCL ER 500mg Tablets ER 24HR Take Two Tablets By Mouth Twice A Day Unknown Prazosin HCL 1mg Capsules Unknown Lamotrigine 100mg Tablets Take One Tablet By Mouth Every Day Unknown Gabapentin 400mg Capsules Take One Capsule By Mouth Three Times A Day Unknown Ibuprofen 800mg Tablets MD Steven Veloz Immunizations Description No Information Available Vital Signs Date Vital Result Comment 03/06/2021 2:41pm Weight 172.00 lb BP Systolic 123 mmHg BP Diastolic 82 mmHg Heart Rate 85 /min 09/25/2020 8:24am Height 68 inches 5'8" Weight 260.00 lb BP Systolic 125 mmHg BP Diastolic 83 mmHg Heart Rate 92 /min BMI (Body Mass Index) 39.5 kg/m2 Results Description No Information Available Procedures Date Code Description Status 03/06/2021 30062 Office/Outpatient Established Lo w MDM 20-29 Min Completed 03/06/2021 64403 I & D Abscess Completed Medical Devices Description No Information Available Encounters Type Date Location Provider Dx Diagnosis Office Visit 03/06/2021 9:45a [facility] Kash Ventura DPM L03.032 Cellulitis of left toe L60.0 Ingrowing nail M79.675 Pain in left toe(s) E11.9 Type 2 diabetes mellitus wit hout complications Assessments Date Code Description Provider 06/06/2021 E11.9 Type 2 diabetes mellitus without complications Kash Ventura DPM 03/06/2021 L03.032 Cellulitis of left toe Kash Ventura DPM 03/06/2021 L60.0 Ingrowing nail Kash Ventura DPM 03/06/2021 M79.675 Pain in left toe(s) Kash graves DPM 03/06/2021 E11.9 Type 2 diabetes mellitus without complications Kash Ventura DPM Plan of Treatment Future Appointment(s):* 03/05/2022 9:45 am - Kash Ventura DPM at [facility] Functional Status Description No Information Available Mental Status Description No Information Available Referrals Refer to Dr Reason for Referral Status Appt Date Kash Ventura DPM CELLULITIS OF TOE Created [address] [address] [phone]
--- OUTSIDE RECORDS SUMMARY | 2021-08-12 13:07 | CCD ---
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 Please review these documents and add these allergies to the patient's chart manually as needed. Medications Name Status Start Date Stop Date albuterol sulfate HFA 90 mcg/actuation aerosol inhaler Active Not available Alcohol Prep Pads Completed 02/12/2021 amitriptyline 50 mg tablet Completed 08/10 amitriptyline 75 mg tablet Completed 08/10 azithromycin 250 mg tablet Completed 08/10 Basaglar KwJazmyn U-100 Insulin 100 unit/ mL (3 mL) subcutaneous INJECT 20 UNITS UNDER THE SKIN ONCE DAILY Active Not available BD Ultra-Fine Short Pen Needle 31 gauge x 5/16" USE ONCE DAILY Completed 05/02/2021 benzonatate 200 mg capsule Completed 08/10 benztropine 0.5 mg tablet Completed 2019 buspirone 10 mg tablet Completed 0 buspirone 15 mg tablet TAKE ONE TABLET BY MOUTH THREE TIMES A DAY Completed 03/22/2021 buspirone 30 mg tablet Active Not avail able buspirone 7.5 mg tablet Completed 08/10/20 20 cefdinir 300 mg capsule Completed 08/10/20 cephalexin 500 mg capsule Completed 2020 clindamycin HCl 150 mg capsule Completed 0 02/12/2021 clonazepam 0.5 mg disintegrating tablet Completed 03/02/2021 clonazepam 0.5 mg tablet Active Not maryam ilable clonazepam 1 mg tablet Completed clonidine HCl 0.2 mg tablet Completed 07/14 DOK 100 mg capsule Completed 02/12/2021 famotidine 20 mg tablet Completed 08/10/20 fenofibrate micronized 134 mg capsule TAKE ONE CAPSULE BY MOUTH EVERY DAY Active Not available fluticasone propionate 50 mcg/actuation nasal spray,suspension SPRAY ONE SPRAY IN EACH NOSTRIL EVERY DAY Active Not available gabapentin 400 mg capsule Active Not av ailable ibuprofen 800 mg tablet Active Not avai lable ketoconazole 2 % shampoo Completed lamotrigine 100 mg tablet TAKE ONE TABLET BY MOUTH ONCE DAILY Completed lamotrigine 150 mg tablet Active Not av ailable lamotrigine 25 mg tablet Completed levothyroxine 25 mcg tablet Active Not available metformin ER 500 mg tablet,extended release 24 hr Active Not available mirtazapine 15 mg tablet Completed mirtazapine 45 mg tablet Completed nicotine (polacrilex) 4 mg buccal lozeng e Take 1 tablet every 2 hours by oral route as needed. Active Not available ofloxacin 0.3 % ear drops INSTILL 10 DROPS INTO AFFECTED EAR S EVERY DAY Active Not available omeprazole 40 mg capsule,delayed release Active Not available OneTouch Delica Plus Lancet 33 gauge Completed 02/12/2021 OneTouch Verio Flex Meter Completed 2020 OneTouch Verio test strips USE UP TO TWO TIMES A DAY DIRECTED Completed 0 05/02/2021 prazosin 1 mg capsule Completed 02/12/2021 propranolol 20 mg tablet Completed propranolol 40 mg tablet Active Not maryam ilable senna 8.6 mg tablet Completed 02/12/2021 sennosides 8.6 mg-docusate sodium 50 mg capsule Take 2 capsules by oral route at bedtime. Completed 08/10/2020 sennosides 8.6 mg-docusate sodium 50 mg tablet Take 2 tablets by oral route at bedtime. Completed 08/10/2020 sildenafil 100 mg tablet 1/2-1 po q24 prn ED. MDD 1. Active Not availab le simvastatin 10 mg tablet TAKE ONE TABLET BY MOUTH EVERY DAY Completed 10/14 simvastatin 20 mg tablet TAKE ONE TABLET BY MOUTH EVERY DAY Active Not available Steglatro 15 mg tablet TAKE ONE TABLET BY MOUTH EVERY DAY Active Not available Steglatro 5 mg tablet Completed 11/10/2020 trazodone 100 mg tablet TAKE ONE TABLET BY MOUTH AT BEDTIME Active Not available trazodone 50 mg tablet TAKE ONE TABLET BY MOUTH EVERY DAY AT BEDTIME Completed 05/02/2021 triamcinolone acetonide 0.1 % topical cream Completed 08/10/2020 Trulicity 0.75 mg/0.5 mL subcutaneous pen injector Completed 08/10/2020 Vitamin D2 1,250 mcg (50,000 unit) capsule Completed 02/12/2021 ziprasidone 60 mg capsule Completed 2019 ziprasidone 80 mg capsule Active Not av ailable Notes: Some medications listed in Docume nts: #[id number], #[id number] could not be added to this patient's chart. Please review these documents and add these medications to the patient's chart manually as needed. Problems Name Status Onset Date Source Chronic Constipation Unknown 09/14/2012 Clinical Finding Unknown 09/14/2012 Vitamin D Deficiency Active 10/15/2012 Hyperlipidemia Active 10/15/2012 Psychoactive Substance Abuse Active 10/15/2012 Degeneration of Lumbar Intervertebral Disc Active 10/15 Tobacco Use and Exposure - Finding Active 10/15/2012 Spasm Active 12/03/2012 Headache Active 12/03/2012 Bipolar Disorder Active 02/18/2013 Backache Active 04/19/2015 Abdominal Pain Unknown 06/15/2015 Disorder of Upper Respiratory System Active 09/04/2015 Disorder of Ear Active 04/16/2016 Finding of Neck Region Active 07/10/2016 Localized Enlarged Lymph Nodes Active 08/15/2016 Respiratory Finding Active 08/15/2016 Dental Arch Length Loss Secondary to Dental Caries Active 08/15/2016 Finding of General Energy Active 08/15/2016 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 08/22/2016 Dyspnea Active 02/27/2017 Finding of Head and Neck Region Active 05/02/2017 Homeless Active 06/12/2017 Cough Active 07/30/2017 Acute Maxillary Sinusitis Unknown 04/28/2018 Hepatitis C Carrier Active 07/13/2018 Leukemoid Reaction of the Active 10/22/2018 Simple Obesity Active 10/26/2018 Body Mass Index 30+ - Obesity Active 10/26/2018 Clinical Finding Unknown 11/02/2018 Obstructive Sleep Apnea Syndrome Active 11/09/2018 Influenza Vaccine Needed Active 01/21/2019 Eruption Active 03/16/2019 Hypothyroidism Active 06/24/2019 Procedure by Method Active 06/24/2019 Low Back Pain Active 12/01/2019 Type 2 Diabetes Mellitus without Complication Active Paronychia of Toe Active 09/01/2020 Bilateral Earache Active 10/03/2020 Tobacco User Active 03/22/2021 Chest Pain Active 03/22/2021 Acute Otitis Externa Active 05/02/2021 Primary Erectile Dysfunction Active 06/12/2021 Viral Hepatitis C Active Depressive Disorder Active Asthma Active Fitting Procedure Active SNOMED CT Concept Active Finding of Esophagus Active Notes: Some problems listed in Document: #[id number] could not be added to this patient's chart. Please review this document and add these problems to the patient's chart manually as needed. Procedures Date Name Performed by 10/13/2005 Back Surgery Information not avai lable 10/13/1999 Biopsy of Liver Information not avai lable 11/10/2020 XR, Lumbosacral Spine, 4 or More View [facility] Radiology Dept [address] [place], [place] [id number] (Work Place) 03/22/[address] [phone] (Work Place) Notes: Back surgery 2005, Liver Biopsy 2 000 Results Lab Results Date Name Specimen Result Interpretation Description Value Range Status Address 05/18/2021 CBC W/ Auto Diff Normal White Blood Count 6.3 10 4.0-10.0 10 Final [facility]: 0 [facility] Normal Red Blood Count 5.35 10 4.30-6.10 10 [facility]: 0 [facility] Normal Hemoglobin 15.7 g/dL 13.5-17.5 g/dL [facility]: 0 [facility] Normal Hematocrit 46.9 % 42.0-52.0 % [facility]: 0 [facility] Normal Mean Corpuscular Volume 87.7 fL 80.0 -96.0 fL Final [facility]: 830 [facility] Normal Mean Corpuscular Hemoglobin 29.3 pg 27.0-33.0 pg Final [facility]: 830 [facility] Normal Mean Corpuscular HGB Conc 33.5 g/dL 32.0-36.5 g/dL Final [facility]: 830 [facility] Normal Red Cell Distribution Width 13.3 % 1 1.5-14.5 % [facility]: [address] [place] [address] Normal Platelet Count, Automated 190 10 150 -450 10 [facility]: 830 [facility] Normal Neutrophils % 57.8 % 36.0-66.0 % [facility]: 830 [facility] Low Lymph % 23.9 % 24.0-44.0 % [facility]: 830 [facility] High [place] % 8.4 % 2.0-8.0 % [facility]: 830 [facility] High Eos % 6.5 % 0.0-3.0 % [facility]: 0 [facility] High Baso % 1.3 % 0.0-1.0 % [facility]: 830 [facility] Normal Immature Granulocyte % 2.1 % 0-3.0 % [facility]: 830 [facility] Normal Nucleated Red Blood Cell % 0.0 % 0- 0 % [facility]: 830 [facility] Normal Neutrophils # 3.7 10 1.5-8.5 10 [facility]: 830 [facility] Normal Lymph # 1.5 10 1.5-5.0 10 [facility]: 830 [facility] Normal [place] # 0.5 10 0.0-0.8 10 [facility]: 830 [facility] Normal Eos # 0.4 10 0.0-0.5 10 [facility]: 830 [facility] Normal Baso # 0.1 10 0.0-0.2 10 [facility]: 830 [facility] 05/18/2021 Hepatic Function Panel, Serum Normal AST/SG OT 19 U/L 7-37 U/L [facility]: 830 [facility] Normal ALT/SGPT 36 U/L 12-78 U/L [facility]: 830 [facility] Normal Alkaline Phosphatase 75 U/L 45-117 U /L [facility]: 830 [facility] Normal Bilirubin,total 0.4 mg/dL 0.2-1.0 mg /dL [facility]: 830 [facility] Normal Bilirubin,direct 0.1 mg/dL 0.0-0.2 m g/dL [facility]: 830 [facility] Normal Total Protein 7.0 gm/dL 6.4-8.2 gm/d L [facility]: 830 [facility] Normal Albumin 3.6 gm/dL 3.2-5.2 gm/dL Argenis l [facility]: 830 [facility] Normal Albumin/globulin Ratio 1.1 [facility]: 830 [facility] 05/18/2021 BMP, Serum or Plasma High Glucose, Fastin g 159 mg/dL 70-100 mg/dL [facility]: 83 0 [facility] Normal Blood Urea Nitrogen 9 mg/dL 7-18 mg/ dL [facility]: 830 [facility] Normal Creatinine for GFR 0.93 mg/dL 0.70-1 .30 mg/dL [facility]: 830 [facility] Normal Glomerular Filtration Rate > 60.0 >6 0 [facility]: 830 [facility] Normal Sodium Level 137 mEq/L 136-145 mEq/L [facility]: 830 [facility] Normal Potassium Serum 3.9 mEq/L 3.5-5.1 mE q/L [facility]: 830 [facility] Normal Chloride Level 104 mEq/L 98-107 mEq/ L [facility]: 830 [facility] Normal Carbon Dioxide Level 28 mEq/L 21-32 mEq/L [facility]: 830 [facility] Low Anion Gap 5 mEq/L 8-16 mEq/L [facility]: 830 [facility] Low Calcium Level 8.2 mg/dL 8.5-10.1 mg/ dL [facility]: 830 [facility] 05/18/2021 Lipase, Serum or Plasma Normal Lipase 195 U/L 73-393 U/L [facility]: 0 [facility] 03/27/2021 Hemoglobin a1C, Fingerstick ABNORMAL Hba1C 7.5 % Final [facility] Medical: [address] [place] [address] 03/22/2021 Retinal Eye Exam* Right Eye Incomplete - Unable to Capture Image [facility] Medical: [address] [facility] Left Eye Incomplete - Unable to Capt ure Image [facility] Medical: [address] [place] [address] Ophthalmology Consult Not Ordered - Unable to Complete Exam [facility] Medical: [address] [place] [address] 09/18/2020 CMP, Serum or Plasma High Glucose, Fastin g 145 mg/dL 70-100 mg/dL [facility]: 83 0 [facility] High Blood Urea Nitrogen 19 mg/dL 7-18 mg /dL [facility]: 0 [facility] Normal Creatinine for GFR 1.20 mg/dL 0.70-1 .30 mg/dL [facility]: 830 [facility] Normal Glomerular Filtration Rate > 60.0 >6 0 [facility]: 830 [facility] Normal Sodium Level 137 mEq/L 136-145 mEq/L [facility]: 830 [facility] Normal Potassium Serum 4.1 mEq/L 3.5-5.1 mE q/L [facility]: 830 [facility] Normal Chloride Level 103 mEq/L 98-107 mEq/ L [facility]: 830 [facility] Normal Carbon Dioxide Level 29 mEq/L 21-32 mEq/L [facility]: 830 [facility] Low Anion Gap 5 mEq/L 8-16 mEq/L [facility]: 830 [facility] Normal Calcium Level 9.0 mg/dL 8.5-10.1 mg/ dL [facility]: 830 [facility] Normal AST/SGOT 16 U/L 7-37 U/L [facility]: 830 [facility] Normal ALT/SGPT 38 U/L 12-78 U/L [facility]: 830 [facility] Normal Alkaline Phosphatase 82 U/L 45-117 U /L [facility]: 830 [facility] Normal Bilirubin,total 0.4 mg/dL 0.2-1.0 mg /dL [facility]: 830 [facility] Normal Total Protein 7.6 gm/dL 6.4-8.2 gm/d L [facility]: 830 [facility] Normal Albumin 4.0 gm/dL 3.2-5.2 gm/dL [facility]: 830 [facility] Normal Albumin/globulin Ratio 1.1 [facility]: 830 [facility] 09/18/2020 Lipid Panel, Blood High Triglycerides Lev el 677 mg/dL <150 mg/dL [facility]: 83 0 [facility] High Cholesterol Level 211 mg/dL <200 mg/ dL [facility]: 830 [facility] Low HDL Cholesterol 32 mg/dL >40 mg/dL F inal [facility]: 830 [facility] Normal Non-hdl-c 179 mg/dL [facility]: 830 [facility] High Cholesterol Risk Ratio 6.593 <5 [facility]: 830 [facility] 08/09/2020 Gas Panel, Venous Blood Low Venous pH 7 .320 units 7.330-7.430 units [facility]: 83 0 [facility] Normal Venous Partial Pressure CO2 42.6 mmH g 38.0-50.0 mmHg [facility]: 0 [facility] High Venous Partial Pressure O2 62.5 mmHg 30.0-50.0 mmHg [facility]: 830 [facility] Low Venous Total CO2 22.8 mEq/L 24.0-28. 0 mEq/L [facility]: 0 [facility] Low Venous HCO3 21.5 mEq/L 23.0-27.0 mEq /L [facility]: [address] [place] [address] Low Venous Base Excess -4.5 -2.0-2.0 F inal [facility]: 0 [facility] Normal Venous Standard HCO3 20.7 mEq/L [facility]: [address] [place] [address] High Venous O2 Saturation 91.2 % 60.0-80. 0 % [facility]: 0 [facility] 08/09/2020 CBC W/ Auto Diff Normal White Blood Count 7.4 10 4.0-10.0 10 [facility]: 0 [facility] Normal Red Blood Count 5.23 10 4.30-6.10 10 [facility]: 0 [facility] Normal Hemoglobin 15.5 g/dL 13.5-17.5 g/dL [facility]: 0 [facility] Normal Hematocrit 46.0 % 42.0-52.0 % [facility]: 0 [facility] Normal Mean Corpuscular Volume 88.0 fL 80.0 -96.0 fL [facility]: 0 [facility] Normal Mean Corpuscular Hemoglobin 29.6 pg 27.0-33.0 pg [facility]: 0 [facility] Normal Mean Corpuscular HGB Conc 33.7 g/dL 32.0-36.5 g/dL [facility]: 0 [facility] Normal Red Cell Distribution Width 12.5 % 1 1.5-14.5 % [facility]: 830 [facility] Normal Platelet Count, Automated 186 10 150 -450 10 [facility]: 830 [facility] Normal Neutrophils % 60.8 % 36.0-66.0 % [facility]: 830 [facility] Low Lymph % 23.0 % 24.0-44.0 % Final [facility]: 830 [facility] High [place] % 7.6 % 0.0-5.0 % Final [facility]: 830 [facility] High Eos % 5.8 % 0.0-3.0 % [facility]: 0 [facility] Normal Baso % 1.0 % 0.0-1.0 % [facility]: 830 [facility] Normal Immature Granulocyte % 1.8 % 0-3.0 % [facility]: 830 [facility] Normal Nucleated Red Blood Cell % 0.0 % 0- 0 % [facility]: 830 [facility] Normal Neutrophils # 4.5 10 1.5-8.5 10 [facility]: 830 [facility] Normal Lymph # 1.7 10 1.5-5.0 10 [facility]: 830 [facility] Normal [place] # 0.6 10 0.0-0.8 10 [facility]: 830 [facility] Normal Eos # 0.4 10 0.0-0.5 10 [facility]: 830 [facility] Normal Baso # 0.1 10 0.0-0.2 10 [facility]: 830 [facility] 08/09/2020 Hepatic Function Panel, Serum Normal AST/SG OT 24 U/L 7-37 U/L [facility]: 830 [facility] Normal ALT/SGPT 39 U/L 12-78 U/L [facility]: 830 [facility] Normal Alkaline Phosphatase 101 U/L 45-117 U/L [facility]: 830 [facility] Normal Bilirubin,total 0.4 mg/dL 0.2-1.0 mg /dL [facility]: 830 [facility] Normal Bilirubin,direct 0.1 mg/dL 0.0-0.2 m g/dL [facility]: 830 [facility] Normal Total Protein 7.6 gm/dL 6.4-8.2 gm/d L [facility]: 830 [facility] Normal Albumin 3.9 gm/dL 3.2-5.2 gm/dL Argenis l [facility]: 830 [facility] Normal Albumin/globulin Ratio 1.1 [facility]: 0 [facility] 08/09/2020 BMP, Serum or Plasma High Glucose, Fastin g 210 mg/dL 70-100 mg/dL [facility]: 83 0 [facility] Normal Blood Urea Nitrogen 16 mg/dL 7-18 mg /dL [facility]: 0 [facility] Normal Creatinine for GFR 1.03 mg/dL 0.70-1 .30 mg/dL [facility]: 0 [facility] Normal Glomerular Filtration Rate > 60.0 >6 0 [facility]: 830 [facility] Low Sodium Level 135 mEq/L 136-145 mEq/L [facility]: 0 [facility] Normal Potassium Serum 4.0 mEq/L 3.5-5.1 mE q/L [facility]: 830 [facility] Normal Chloride Level 101 mEq/L 98-107 mEq/ L [facility]: 0 [facility] Normal Carbon Dioxide Level 28 mEq/L 21-32 mEq/L [facility]: 830 [facility] Low Anion Gap 6 mEq/L 8-16 mEq/L [facility]: 0 [facility] Normal Calcium Level 9.7 mg/dL 8.5-10.1 mg/ dL [facility]: 830 [facility] 08/09/2020 Acetone/ketone Normal Acetone/ketone 1.22 mg/dL <2.81 mg/dL [facility]: 830 [facility] 08/09/2020 HbA1C (Hemoglobin a1C), Blood Normal Hemogl obin a1C 8.6 % [facility]: 830 [facility] High Estimated Average Glucose 200 mg/dL 60-110 mg/dL [facility]: 830 [facility] 08/09/2020 Glucose, Fingerstick, Blood High Bedside Glucose 233 mg/dL 70- 105 mg/dL [facility]: 83 0 [facility] 08/09/2020 Urinalysis, Dipstick Normal Appearance, Uri ne clear clear [facility]: 830 [facility] Normal Color, Urine yellow yellow [facility]: 830 [facility] Normal pH,urine 5.0 units 5.0-9.0 units Fin [facility]: 830 [facility] Normal Specific [place] Urine Auto 1.035 1 .002-1.035 [facility]: 830 [facility] Normal Protein, Urine Auto negative mg/dL n egative mg/dL [facility]: 830 [facility] High Glucose, Urine (UA) Auto 3+ mg/dL ne gative mg/dL [facility]: 830 [facility] Normal Ketone, Urine Auto negative mg/dL ne gative mg/dL [facility]: 830 [facility] Normal Urobilinogen, Urine Auto 0.2 mg/dL 0 .0-2.0 mg/dL [facility]: 830 [facility] Normal Bilirubin, Urine Auto negative negat regina [facility]: 830 [facility] Normal Nitrite, Urine Auto negative negativ e [facility]: 830 [facility] Normal Leukocyte Esterase, Urine Auto negat regina negative Final [facility]: 830 [facility] Normal Blood, Urine Blood negative negative [facility]: 830 [facility] Normal WBC, Urine Auto 0 /hpf 0-3 /hpf [facility]: 830 [facility] Normal RBC, Urine Auto 2 /hpf 0-3 /hpf [facility]: 830 [facility] Normal Bacteria, Urine Auto negative negati ve [facility]: 830 [facility] Normal Squamous Epithelial Cell Ur AU 0 /hp f 0-6 /hpf [facility]: 830 [facility] Normal Hyaline Cast, Urine Auto 0 /lpf 0-1 /lpf [facility]: [address] [facility] Past Encounters 06/12/2021 Tobacco User; Chest Pain; Type 2 Diabetes Mellitus without Complication; Body Mass Index 30+ - Obesity; Primary Erectile Dysfunction Steven Veloz MD: [address] [place] [phone], Ph. 05/02/2021 Acute Otitis Externa; Chest Pain; Type 2 Diabetes Mellitus without Complication Steven Veloz MD: [address] [place] [phone], Ph. 03/22/2021 Type 2 Diabetes Mellitus without Complication; Bipolar Disorder; Body Mass Index 30+ - Obesity; Tobacco User; Chest Pain Steven Veloz MD: [address] [place] [phone], Ph. 03/02/2021 Paronychia of Toe of Left Foot Whitney Flores PA-C: [address] [place] [phone], Ph. 02/12/2021 Depressive Disorder Steven Veloz MD: [address] [place] [phone], Ph. 01/09/2021 SARS-CoV-2 Vaccination Steven Veloz MD: [address] [place] [phone], Ph. 12/14/2020 SARS-CoV-2 Vaccination Steven Veloz MD: [address] [place] [phone], Ph. 11/10/2020 Type 2 Diabetes Mellitus without Complication; Degeneration of Lumbar Intervertebral Disc Steven Veloz MD: [address] [place] [phone], Ph. 10/03/2020 Type 2 Diabetes Mellitus without Complication; Bilateral Earache Steven Veloz MD: [address] [place] [phone], Ph. 09/01/2020 Type 2 Diabetes Mellitus without Complication; Paronychia of Toe Steven Veloz MD: [address] [place] [phone], Ph. 08/25/2020 Steven Veloz MD: [address] [place] [phone], Ph. 08/10/2020 Type 2 Diabetes Mellitus without Complication; Administration of Influenza Vaccine Steven Veloz MD: [address] [place] [phone], Ph. Social History Tobacco Smoking Status Heavy Tobacco Smoker (1 pack per a da y) Vaccine List Vaccine Type COVID-19, mRNA, LNP-S, PF, 100 mcg/0.5 m L dose .5 mL 10.5 mL Hep B, adult 01/28/20190.5 mL 04/22/20190.5 mL Influenza, injectable, MDCK, preservativ e free, quadrivalent 01/21/20190.5 mL influenza, injectable, quadrivalent, pre servative free 08/31/20190.5 mL 08/10/20200.5 mL influenza, seasonal, injectable 07/13/2015 Plan of Care Reminders Provider Appointments None recorded. Lab None recorded. Referral None recorded. Procedures None recorded. Surgeries None recorded. Imaging None recorded. Vitals 06/12/2021 09:00AM PROVIDER REQUESTED Height Weight BMI Blood Pressure 68 in 256 lbs 38.9 kg/m2 135/90 mm[Hg] 05/02/2021 09:00AM PROVIDER REQUESTED Height Weight BMI Blood Pressure 68 in 259 lbs 6 oz 39.4 kg/m2 135/94 mm[Hg] 03/22/2021 09:00AM PROVIDER REQUESTED Height Weight BMI Blood Pressure 68 in 259 lbs 6 oz 39.4 kg/m2 129/88 mm[Hg] 03/02/2021 01:40PM ESTABLISHED [id number] Height Weight BMI Blood Pressure 68 in 259 lbs 6 oz 39.4 kg/m2 123/82 mm[Hg] 02/12/2021 10:00AM [facility] 20 Height 68 in 11/10/2020 01:00PM ESTABLISHED [id number] Height Weight BMI Blood Pressure 68 in 208 lbs 6 oz 31.7 kg/m2 121/85 mm[Hg] 10/03/2020 02:20PM ESTABLISHED [id number] Height Weight BMI Blood Pressure 68 in 262 lbs 16 oz 40 kg/m2 115/78 mm[Hg] 09/01/2020 01:00PM ESTABLISHED [id number] Height Weight BMI Blood Pressure 68 in 260 lbs 4 oz 39.6 kg/m2 125/83 mm[Hg] 08/10/2020 03:00PM ESTABLISHED [id number] Height Weight BMI Blood Pressure 68 in 263 lbs 6 oz 40 kg/m2 124/88 mm[Hg] 07/28/2020 Height Weight BMI Blood Pressure 68 in 264 lbs 2.08 oz 40.31 kg/m2 134/83 mm[H g] 03/09/2020 Height Weight BMI Blood Pressure 68 in 266 lbs 3.04 oz 40.62 kg/m2 133/90 mm[H g] 12/17/2019 Height Weight BMI Blood Pressure 68 in 263 lbs 4 oz 40.17 kg/m2 139/97 mm[Hg] 12/01/2019 Height Weight BMI Blood Pressure 68 in 255 lbs 38.91 kg/m2 124/88 mm[Hg] 08/31/2019 Height Weight BMI Blood Pressure 68 in 253 lbs 6.08 oz 38.67 kg/m2 127/93 mm[H g] 06/24/2019 Height Weight BMI Blood Pressure 68 in 252 lbs 2.08 oz 38.47 kg/m2 134/99 mm[H g] 04/22/2019 Height Weight BMI Blood Pressure 68 in 248 lbs 37.84 kg/m2 104/80 mm[Hg] 03/16/2019 Height Weight BMI Blood Pressure 68 in 247 lbs 8 oz 37.77 kg/m2 121/82 mm[Hg] 01/28/2019 Height Weight BMI Blood Pressure 68 in 243 lbs 2.08 oz 37.10 kg/m2 135/82 mm[H g] 01/21/2019 Height Weight BMI Blood Pressure 68 in 244 lbs 3.04 oz 37.26 kg/m2 127/90 mm[H g] 11/30/2018 Height Weight BMI Blood Pressure 68 in 243 lbs 12.8 oz 37.20 kg/m2 108/78 mm[H g] 10/26/2018 Height Weight BMI Blood Pressure 68 in 243 lbs 37.08 kg/m2 155/86 mm[Hg] 10/22/2018 Height Weight BMI Blood Pressure 68 in 245 lbs 12.8 oz 37.51 kg/m2 128/96 mm[H g]
--- OUTSIDE RECORDS SUMMARY | 2021-08-12 13:07 | CCD ---
Author Author ChetnaLink Corey Organization Unknown Address [address] [address] Phone Care Team Providers Care Warehouse Freight Handler Name Role Phone Corey Basilio PCP Allergies, Adverse Reactions, Alerts Concept Allergy Name Reaction Severity Onset Date Status Documentation Date Phone Number Npid Taxonomy Code Taxonomy Desc Author Last Name Author Fi rst Name Concept Type 953162 chlorpromazine Photosensitivity 04/11/2018 Active 03/10 [id number] Psychiatric/Mental Health Gaudencio Haddad RXNORM 476 Penicillins Mild 02/05/2013 Active 02/05/2013 [id number] Nurse Practitioner Marciano Soria FDDC Problem List Concept Problem Description Status Start Date Created Date Resolv ed Date Snomed Code F31.63 Bipolar disord, crnt epsd mixed, severe, w/o psy ch features Active 08/13/2018 08/13/2018 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 Active 07/02/2021 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 08/20/2016 016 F17.200 Tobacco Use Disorder, Moderate Active Medications Rx Norm Medication Route Route Concept Start Date Stop Date Dosage Galindo quency Duration Formula Strength Dosage Form Dosage Form Code Dosage Description Medication Id Account Npid Author First Name Author Last Name Taxonomy Code Taxonomy Desc Phone Number [id number] propranolol by mouth [id number] 12/11/2020 twice a day 40 mg t ablet 04867 202326 [phone] Adrienne García [id number] Psychiatric/Mental Health [phone] 499460 trazodone 03/22/2021 at bedtime 100 mg tablet 14001 069257 [id number] Adrienne García [id number] Psychiatric/Mental Health 31 [phone] 718314 gabapentin by mouth [id number] 03/13/2020 07/04/2021 three times a day 30 400 mg capsule 35208 [id number] Susanne Bryan [id number] Nurse Practitioner [id number] 684260 ziprasidone HCl by mouth [id number] 10/25/2020 08/06/2021 twice a d ay 30 80 mg capsule 35642 961559 [id number] Susanne Bryan [id number] Nurse Practitioner [phone] 815291 lamotrigine by mouth [id number] 02/22/2021 08/06/2021 once a day 30 150 mg tablet 56105 073261 [id number] Susanne Bryan [id number] Nurse P ractitioner [id number] 685212 buspirone by mouth [id number] 06/07/2021 08/06/2021 twice a day 30 30 mg tablet 91089 066336 [id number] Susanne Bryan [id number] Nurse P ractitioner [id number] Social History Social History Element Description Concept Effective Date Smoking Status Unknown if ever smoked [id number] Immunizations No Data in Section Vital Signs No Data in Section Procedures Date Concept Id Description Targeted Site Concept Targeted Site Concept Type 07/02/2021 41997 Extended Individual Psychotherapy - 45 min CPT Patient has no history of implantable de vices Encounters Encounter Start Date End Date Encounter Type Description Diagnosis Di agnosis Desc Location Author First Name Author Last Name Npid Taxonomy Cod e Taxonomy Desc Phone Number Location Addr1 Location Addr2 Location [facility] [id number] 07/02/2021 07/02/2021 06746 Extended Individual Psych otherapy - 45 min F31.63 Bipolar disord, crnt epsd mixed, severe, w/o psych fea tures [facility] [phone] [id number] Art Thera pist [id number] [address] [phone] Plan of Treatment No Data in Section Lab Results No Data in Section Instructions No Data in Section Insurance Providers Insurance Id Policy Effective Date Policy Thru Date Company N sydnee [id number] [address]
--- OUTSIDE RECORDS SUMMARY | 2021-08-12 13:07 | CCD | Continuity of Care Document ---
Author Author Link VENTURA DPM Organization Unknown Address [address] [place] [address], [facility] [address] [place] [address] Phone [phone] Care Team Providers Care Boat Crew Deck Hand Name Role Phone MD Steven VelozM [phone] Problems Active Problems Provider Date Cellulitis of [...] Courtney Hadley RPA Vitamin D (Ergocalciferol) 1.25mg (37627 Ut) Capsules Take One Capsule By Mouth [...] Available Procedures Date Code Description Status 03/06/2021 02175 Office/Outpatient Established Lo w MDM 20-29 Min Completed 03/06/2021 90924 I & D Abscess Completed Medical Devices Description No Information Available Encounters Type Date Location Provider Dx Diagnosis Office Visit 03/06/2021 9:45a [facility][Note 3] Kash Ventura DPM L03.032 Cellulitis of left toe L60.0 Ingrowing nail M79.675 Pain in left toe(s) E11.9 Type 2 diabetes mellitus wit hout complications Assessments Date Code Description Provider 03/06/2021 L03.032 Cellulitis of left toe Kash Ventura DPM 03/06/2021 L60.0 Ingrowing nail Kash Ventura DPM 03/06/2021 M79.675 Pain in left toe(s) Kash graves DPM 03/06/2021 E11.9 Type 2 diabetes mellitus without complications Kash Ventura DPM Plan of Treatment Future Appointment(s):* 03/05/2022 9:45 am - Kash Ventura DPM at [facility] Functional Status Description No Information Available Mental Status Description No Information Available Referrals Refer to Reason for Referral Status Appt Date Kash Ventura, DPEvaristo CELLULITIS OF TOE Created [address] [address] [phone]
--- OUTSIDE RECORDS SUMMARY | 2021-08-12 13:07 | CCD ---
Author Author Moni Linkartemio Wells Organization Unknown Address [address] [place] [address] Phone Care Team Providers Care Warp Tension Tester Name Role Phone Russell Montenegro PCP Allergies, Adverse Reactions, Alerts Concept Allergy Name Reaction Severity Onset Date Status Documentation Date Phone Number Npid Taxonomy Code Taxonomy Desc Author Last Name Author Fi rst Name Concept Type 888898 chlorpromazine Photosensitivity 04/11/2018 Active 03/10 [id number] Psychiatric/Mental Health Gaudencio Haddad RXNORM 476 Penicillins Mild 02/05/2013 Active 02/05/2013 [id number] Nurse Practitioner Marciano Soria FDDC Problem List Concept Problem Description Status Start Date Created Date Resolv ed Date Snomed Code F31.63 Bipolar disord, crnt epsd mixed, severe, w/o psy ch features Active 08/13/2018 08/13/2018 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 Active 05/30/2021 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 08/20/2016 016 F17.200 Tobacco Use Disorder, Moderate Active Medications Rx Norm Medication Route Route Concept Start Date Stop Date Dosage Galindo quency Duration Formula Strength Dosage Form Dosage Form Code Dosage Description Medication Id Account Npid Author First Name Author Last Name Taxonomy Code Taxonomy Desc Phone Number [id number] gabapentin 03/13/2020 400 mg capsule 50451 776283 [id number] Adrienne García [id number] Psychiatric/Mental Health 31 [phone] 838607 ziprasidone HCl by mouth [id number] 10/25/2020 twice a day 80 mg capsule 42835 356828 [id number] Adrienne [place] [id number] Psychiatr ic/Mental Health [phone] 003893 propranolol by mouth C08820 12/11/2020 twice a day 40 mg t ablet 62290 658196 [id number] Adrienne García [id number] Psychiatric/Mental Health [phone] 056602 lamotrigine by mouth G84621 02/22/2021 once a day 150 mg t ablet 20883 343799 [id number] Adrienne García [id number] Psychiatric/Mental Health [phone] 677574 trazodone 03/22/2021 at bedtime 100 mg tablet 38000 032476 [id number] Adrienne García [id number] Psychiatric/Mental Health 31 [phone] Social History Social History Element Description Concept Effective Date Smoking Status Unknown if ever smoked [id number] Immunizations No Data in Section Vital Signs No Data in Section Procedures Date Concept Id Description Targeted Site Concept Targeted Site Concept Type 05/30/2021 24091-46 [facility]CTelemed E/M Lvl 5--Est pt CPT Patient has no history of implantable de vices Encounters Encounter Start Date End Date Encounter Type Description Diagnosis Di agnosis Desc Location Author First Name Author Last Name Npid Taxonomy Cod e Taxonomy Desc Phone Number Location Addr1 Location Addr2 Location [facility] Location Sta te Location Zip [id number] 05/30/2021 05/30/2021 09318-66 MHCTelemed E/M Lvl 5--Est pt F31.63 Bipolar disord, crnt epsd mixed, severe, w/o psych features [facility] Russell [phone] [id number] Nurse Practitioner [phone] [address] [place] [phone] 5-1984 Plan of Treatment No Data in Section Lab Results No Data in Section Instructions No Data in Section Functional Cognitive Status No Data in Section Insurance Providers Insurance Id Policy Effective Date Policy Thru Date Company N sydnee [id number] [address]
--- OUTSIDE RECORDS SUMMARY | 2021-08-12 13:07 | CCD ---
Author Organization Unknown Address [address] [place] [address] Phone [phone] Care Team Providers Care Health Analyst Name Role Phone Steven Veloz Unavailable Unavailable Allergies Code Code System Name Reaction Severity Status Onset 1191 RxNorm Aspirin Active 09/14/2012 Penicillin v Potassium Active 09/14/2012 1292 RxNorm Baclofen Active 2100 RxNorm Carisoprodol Active 0469737 RxNorm [place] Anaphylaxis Fatal Active 9671421 RxNorm Latex Rash Active 317731 RxNorm [place] Hives Active Sulfa (Sulfonamide Antibiotics) Nausea Active Notes: Some allergies listed in Document s: #[id number], #[id number] could not be added to this patient's chart. Please review these documents and add these allergies to the patient's chart manually as needed. Medications Name Status Start Date Stop Date albuterol sulfate HFA 90 mcg/actuation aerosol inhaler Active Not available Alcohol Prep Pads Active 06/20/2021 Not available amitriptyline 50 mg tablet Completed 08/10 amitriptyline 75 mg tablet Completed 08/10 azithromycin 250 mg tablet Completed 08/10 Flakoagldyan Mariano U-100 Insulin 100 unit/ mL (3 mL) subcutaneous INJECT 20 UNITS UNDER THE SKIN UNDER THE SKIN Active Not available BD Alcohol Swabs APPLY 1 PAD NEEDED BY TOPICAL ROUTE TO BE USE BEFORE INJECTING INSULIN AND TESTING BLOOD SUGAR Active Not available BD Ultra-Fine Short Pen Needle 31 gauge x 5/16" USE ONCE DAILY Active Not available benzonatate 200 mg capsule Completed 08/10 benztropine 0.5 mg tablet Completed 2019 buspirone 10 mg tablet Completed 0 buspirone 15 mg tablet TAKE ONE TABLET BY MOUTH THREE TIMES A DAY Completed 03/22/2021 buspirone 30 mg tablet TAKE ONE TABLET BY MOUTH TWICE A DAY Active No t available buspirone 7.5 mg tablet Completed 08/10/20 20 cefdinir 300 mg capsule Completed 10/29/20 20 cephalexin 500 mg capsule Completed 2020 clindamycin HCl 150 mg capsule Completed 02/12/2021 clonazepam 0.5 mg disintegrating tablet Completed [...] Not av ailable ibuprofen 800 mg tablet TAKE ONE TABLET BY MOUTH THREE TIMES A DAY NEEDED MAXIMUM DAILY DOSE THREE TABLETS Active Not available ketoconazole 2 % shampoo Completed lamotrigine 100 mg tablet TAKE ONE TABLET BY MOUTH ONCE DAILY Completed lamotrigine 150 mg tablet Active Not av ailable lamotrigine 25 mg tablet Completed levothyroxine 25 mcg tablet Active Not available metformin ER 500 mg tablet,extended rele ase 24 hr TAKE TWO TABLETS BY MOUTH TWICE A DAY Active N ot available mirtazapine 15 mg tablet Completed mirtazapine 45 mg tablet Completed nicotine (polacrilex) 4 mg buccal lozeng e DISSOLVE 1 LOZENGE IN MOUTH EVERY 2 HOURS NEEDED Active Not available ofloxacin 0.3 % ear drops INSTILL 10 DROPS INTO AFFECTED EAR S EVERY DAY Completed 07/19/2021 omeprazole 40 mg capsule,delayed release Active Not available OneTouch Delica Plus Lancet 33 gauge Completed 02/12/2021 OneTouch Verio Flex Meter Completed 2020 OneTouch Verio test strips USE UP TO TWO TIMES A DAY DIRECTED Completed 0 05/02/2021 prazosin 1 mg capsule Completed 02/12/2021 propranolol 20 mg tablet Completed propranolol 40 mg tablet TAKE ONE TABLET BY MOUTH TWO TIMES A DAY Active Not available senna 8.6 mg tablet Completed 02/12/2021 sennosides 8.6 mg-docusate sodium 50 mg capsule Take 2 capsules by oral route at bedtime. Completed 08/10/2020 sennosides 8.6 mg-docusate sodium 50 mg tablet Take 2 tablets by oral route at bedtime. Completed 08/10/2020 sildenafil 100 mg tablet TAKE 1/2 1 TABLET BY MOUTH ONCE DAILY NEEDED MAXIMUM DAILY DOSE 1 Active Not available simvastatin 10 mg tablet TAKE ONE TABLET BY MOUTH EVERY DAY Completed 10/14 simvastatin 20 mg tablet TAKE ONE TABLET BY MOUTH EVERY DAY Active Not available Steglatro 15 mg tablet TAKE ONE TABLET BY MOUTH EVERY DAY Active Not available Steglatro 5 mg tablet Completed 11/10/2020 trazodone 100 mg tablet Active Not avai lable trazodone 50 mg tablet TAKE ONE TABLET BY MOUTH EVERY DAY AT BEDTIME Completed 05/02/2021 triamcinolone acetonide 0.1 % topical cream Completed 08/10/2020 Trulicity 0.75 mg/0.5 mL subcutaneous pen injector Completed 08/10/2020 Vitamin D2 1,250 mcg (50,000 unit) capsule Completed 02/12/2021 ziprasidone 60 mg capsule Completed 2019 ziprasidone 80 mg capsule Active Not av ailable Notes: Some medications listed in Docume nts: #[id number], #[id number] could not be added to this patient's chart. Please review these documents and add these medications to the patient's chart manually as needed. Problems Name Status Onset Date Source Chronic Constipation Unknown 09/14/2012 Pain Unknown 09/14/2012 Vitamin D Deficiency Active 10/15/2012 [...] 07/10/2016 Localized Enlarged Lymph Nodes Active 08/15/2016 Clinical Finding Active 08/15/2016 Dental Arch Length Loss [...] Active Notes: Some problems listed in Document: #[id number] could not be added to this patient's chart. Please review this document and add these problems to the patient's chart manually as needed. Procedures Date Name Performed by 10/13/2005 Back Surgery Information not avai lable 10/13/1999 Biopsy of Liver Information not avai lable 11/10/2020 XR, Lumbosacral Spine, 4 or More View [facility] Radiology Dept [address], [place] [id number] (Work Place) 03/22/[address] [address] (Work Place) Notes: Back surgery 2005, Liver Biopsy 2 000 Results Lab Results Date Name Specimen Result Interpretation Description Value Range Status Address 05/18/2021 CBC W/ Auto Diff Normal White Blood Count 6.3 10 4.0-10.0 10 Final [facility]: [address] [facility] Normal Red Blood Count 5.35 10 4.30-6.10 10 Final [facility]: [address] [facility] Normal Hemoglobin 15.7 g/dL 13.5-17.5 g/dL Final [facility]: [address] [facility] Normal Hematocrit 46.9 % 42.0-52.0 % [facility]: [address] [facility] Normal Mean Corpuscular Volume 87.7 fL 80.0 -96.0 fL [facility]: [address] [facility] Normal Mean Corpuscular Hemoglobin 29.3 pg 27.0-33.0 pg Final [facility]: [address] [facility] Normal Mean Corpuscular HGB Conc 33.5 g/dL 32.0-36.5 g/dL Final [facility]: [address] [facility] Normal Red Cell Distribution Width 13.3 % 1 1.5-14.5 % [facility]: [address] [place] [address] Normal Platelet Count, Automated 190 10 150 -450 10 [facility]: 0 [facility] Normal Neutrophils % 57.8 % 36.0-66.0 % [facility]: [address] [facility] Low Lymph % 23.9 % 24.0-44.0 % [facility]: [address] [facility] High [place] % 8.4 % 2.0-8.0 % Final [facility]: 0 [facility] High Eos % 6.5 % 0.0-3.0 % [facility]: 0 [facility] High Baso % 1.3 % 0.0-1.0 % Final [facility]: [address] [facility] Normal Immature Granulocyte % 2.1 % 0-3.0 % [facility]: [address] [facility] Normal Nucleated Red Blood Cell % 0.0 % 0- 0 % [facility]: 0 [facility] Normal Neutrophils # 3.7 10 1.5-8.5 10 [facility]: [address] [facility] Normal Lymph # 1.5 10 1.5-5.0 10 [facility]: [address] [facility] Normal [place] # 0.5 10 0.0-0.8 10 [facility]: [address] [facility] Normal Eos # 0.4 10 0.0-0.5 10 [facility]: [address] [facility] Normal Baso # 0.1 10 0.0-0.2 10 [facility]: [address] [facility] 05/18/2021 Hepatic Function Panel, Serum Normal AST/SG OT 19 U/L 7-37 U/L [facility]: [address] [facility] Normal ALT/SGPT 36 U/L 12-78 U/L [facility]: [address] [facility] Normal Alkaline Phosphatase 75 U/L 45-117 U /L [facility]: [address] [facility] Normal Bilirubin,total 0.4 mg/dL 0.2-1.0 mg /dL [facility]: [address] [facility] Normal Bilirubin,direct 0.1 mg/dL 0.0-0.2 m g/dL [facility]: [address] [facility] Normal Total Protein 7.0 gm/dL 6.4-8.2 gm/d L [facility]: 0 [facility] Normal Albumin 3.6 gm/dL 3.2-5.2 gm/dL Argenis l [facility]: [address] [facility] Normal Albumin/globulin Ratio 1.1 [facility]: [address] [facility] 05/18/2021 BMP, Serum or Plasma High Glucose, Fastin g 159 mg/dL 70-100 mg/dL [facility]: [address] [facility] Normal Blood Urea Nitrogen 9 mg/dL 7-18 mg/ dL [facility]: 0 [facility] Normal Creatinine for GFR 0.93 mg/dL 0.70-1 .30 mg/dL [facility]: [address] [facility] Normal Glomerular Filtration Rate > 60.0 >6 0 [facility]: [address] [facility] Normal Sodium Level 137 mEq/L 136-145 mEq/L [facility]: [address] [facility] Normal Potassium Serum 3.9 mEq/L 3.5-5.1 mE q/L [facility]: [address] [facility] Normal Chloride Level 104 mEq/L 98-107 mEq/ L [facility]: [address] [facility] Normal Carbon Dioxide Level 28 mEq/L 21-32 mEq/L [facility]: [address] [facility] Low Anion Gap 5 mEq/L 8-16 mEq/L [facility]: [address] [facility] Low Calcium Level 8.2 mg/dL 8.5-10.1 mg/ dL [facility]: [address] [facility] 05/18/2021 Lipase, Serum or Plasma Normal Lipase 195 U/L 73-393 U/L [facility]: [address] [facility] 03/27/2021 Hemoglobin a1C, Fingerstick ABNORMAL Hba1C 7.5 % Final [facility]: [address] [place] [address] 03/22/2021 Retinal Eye Exam* Right Eye Incomplete - Unable to Capture Image [facility]: [address] [place] [address] Left Eye Incomplete - Unable to Capt ure Image [facility]: [address] [place] [address] Ophthalmology Consult Not Ordered - Unable to Complete Exam [facility]: [address] [place] [address] 09/18/2020 CMP, Serum or Plasma High Glucose, Fastin g 145 mg/dL 70-100 mg/dL [facility]: [address] [facility] High Blood Urea Nitrogen 19 mg/dL 7-18 mg /dL [facility]: 0 [facility] Normal Creatinine for GFR 1.20 mg/dL 0.70-1 .30 mg/dL [facility]: [address] [facility] Normal Glomerular Filtration Rate > 60.0 >6 0 [facility]: [address] [facility] Normal Sodium Level 137 mEq/L 136-145 mEq/L [facility]: [address] [facility] Normal Potassium Serum 4.1 mEq/L 3.5-5.1 mE q/L [facility]: [address] [facility] Normal Chloride Level 103 mEq/L 98-107 mEq/ L [facility]: [address] [facility] Normal Carbon Dioxide Level 29 mEq/L 21-32 mEq/L [facility]: [address] [facility] Low Anion Gap 5 mEq/L 8-16 mEq/L [facility]: [address] [facility] Normal Calcium Level 9.0 mg/dL 8.5-10.1 mg/ dL [facility]: [address] [facility] Normal AST/SGOT 16 U/L 7-37 U/L [facility]: [address] [facility] Normal ALT/SGPT 38 U/L 12-78 U/L [facility]: [address] [facility] Normal Alkaline Phosphatase 82 U/L 45-117 U /L [facility]: [address] [facility] Normal Bilirubin,total 0.4 mg/dL 0.2-1.0 mg /dL [facility]: [address] [facility] Normal Total Protein 7.6 gm/dL 6.4-8.2 gm/d L [facility]: [address] [facility] Normal Albumin 4.0 gm/dL 3.2-5.2 gm/dL Argenis l [facility]: [address] [facility] Normal Albumin/globulin Ratio 1.1 [facility]: [address] [facility] 09/18/2020 Lipid Panel, Blood High Triglycerides Lev el 677 mg/dL <150 mg/dL [facility]: [address] [facility] High Cholesterol Level 211 mg/dL <200 mg/ dL [facility]: [address] [facility] Low HDL Cholesterol 32 mg/dL >40 mg/dL F inal [facility]: [address] [facility] Normal Non-hdl-c 179 mg/dL [facility]: [address] [facility] High Cholesterol Risk Ratio 6.593 <5 [facility]: [address] [facility] 08/09/2020 Gas Panel, Venous Blood Low Venous pH 7 .320 units 7.330-7.430 units [facility]: [address] [facility] Normal Venous Partial Pressure CO2 42.6 mmH g 38.0-50.0 mmHg [facility]: [address] [facility] High Venous Partial Pressure O2 62.5 mmHg 30.0-50.0 mmHg [facility]: [address] [facility] Low Venous Total CO2 22.8 mEq/L 24.0-28. 0 mEq/L [facility]: 0 [facility] Low Venous HCO3 21.5 mEq/L 23.0-27.0 mEq /L [facility]: [address] [place] [address] Low Venous Base Excess -4.5 -2.0-2.0 F inal [facility]: [address] [facility] Normal Venous Standard HCO3 20.7 mEq/L [facility]: [address] [facility] High Venous O2 Saturation 91.2 % 60.0-80. 0 % [facility]: [address] [facility] 08/09/2020 CBC W/ Auto Diff Normal White Blood Count 7.4 10 4.0-10.0 10 [facility]: [address] [facility] Normal Red Blood Count 5.23 10 4.30-6.10 10 [facility]: [address] [facility] Normal Hemoglobin 15.5 g/dL 13.5-17.5 g/dL [facility]: 0 [facility] Normal Hematocrit 46.0 % 42.0-52.0 % [facility]: 0 [facility] Normal Mean Corpuscular Volume 88.0 fL 80.0 -96.0 fL [facility]: [address] [facility] Normal Mean Corpuscular Hemoglobin 29.6 pg 27.0-33.0 pg Final [facility]: [address] [facility] Normal Mean Corpuscular HGB Conc 33.7 g/dL 32.0-36.5 g/dL Final [facility]: [address] [facility] Normal Red Cell Distribution Width 12.5 % 1 1.5-14.5 % [facility]: [address] [facility] Normal Platelet Count, Automated 186 10 150 -450 10 [facility]: [address] [facility] Normal Neutrophils % 60.8 % 36.0-66.0 % [facility]: [address] [facility] Low Lymph % 23.0 % 24.0-44.0 % Final [facility]: [address] [facility] High [place] % 7.6 % 0.0-5.0 % Final [facility]: [address] [place] [address] High Eos % 5.8 % 0.0-3.0 % [facility]: [address] [facility] Normal Baso % 1.0 % 0.0-1.0 % [facility]: [address] [facility] Normal Immature Granulocyte % 1.8 % 0-3.0 % [facility]: [address] [facility] Normal Nucleated Red Blood Cell % 0.0 % 0- 0 % [facility]: [address] [facility] Normal Neutrophils # 4.5 10 1.5-8.5 10 [facility]: [address] [facility] Normal Lymph # 1.7 10 1.5-5.0 10 [facility]: [address] [facility] Normal [place] # 0.6 10 0.0-0.8 10 [facility]: [address] [facility] Normal Eos # 0.4 10 0.0-0.5 10 [facility]: [address] [facility] Normal Baso # 0.1 10 0.0-0.2 10 [facility]: 0 [facility] 08/09/2020 Hepatic Function Panel, Serum Normal AST/SG OT 24 U/L 7-37 U/L [facility]: 0 [facility] Normal ALT/SGPT 39 U/L 12-78 U/L [facility]: 0 [facility] Normal Alkaline Phosphatase 101 U/L 45-117 U/L [facility]: [address] [facility] Normal Bilirubin,total 0.4 mg/dL 0.2-1.0 mg /dL [facility]: [address] [facility] Normal Bilirubin,direct 0.1 mg/dL 0.0-0.2 m g/dL [facility]: 0 [facility] Normal Total Protein 7.6 gm/dL 6.4-8.2 gm/d L [facility]: [address] [place] [address] Normal Albumin 3.9 gm/dL 3.2-5.2 gm/dL Argenis l [facility]: 0 [facility] Normal Albumin/globulin Ratio 1.1 [facility]: 0 [facility] 08/09/2020 BMP, Serum or Plasma High Glucose, Fastin g 210 mg/dL 70-100 mg/dL [facility]: [address] [facility] Normal Blood Urea Nitrogen 16 mg/dL 7-18 mg /dL [facility]: [address] [place] [address] Normal Creatinine for GFR 1.03 mg/dL 0.70-1 .30 mg/dL [facility]: 0 [facility] Normal Glomerular Filtration Rate > 60.0 >6 0 [facility]: 0 [facility] Low Sodium Level 135 mEq/L 136-145 mEq/L [facility]: 0 [facility] Normal Potassium Serum 4.0 mEq/L 3.5-5.1 mE q/L [facility]: 0 [facility] Normal Chloride Level 101 mEq/L 98-107 mEq/ L [facility]: 0 [facility] Normal Carbon Dioxide Level 28 mEq/L 21-32 mEq/L [facility]: [address] [facility] Low Anion Gap 6 mEq/L 8-16 mEq/L [facility]: [address] [facility] Normal Calcium Level 9.7 mg/dL 8.5-10.1 mg/ dL [facility]: [address] [facility] 08/09/2020 Acetone/ketone Normal Acetone/ketone 1.22 mg/dL <2.81 mg/dL [facility]: [address] [facility] 08/09/2020 HbA1C (Hemoglobin a1C), Blood Normal Hemogl obin a1C 8.6 % [facility]: [address] [facility] High Estimated Average Glucose 200 mg/dL 60-110 mg/dL [facility]: [address] [facility] 08/09/2020 Glucose, Fingerstick, Blood High Bedside Glucose 233 mg/dL 70- 105 mg/dL [facility]: [address] [facility] 08/09/2020 Urinalysis, Dipstick Normal Appearance, Uri ne clear clear [facility]: [address] [facility] Normal Color, Urine yellow yellow [facility]: [address] [facility] Normal pH,urine 5.0 units 5.0-9.[address] [facility]: [address] [facility] Normal Specific [place] Urine Auto 1.035 1 .002-1.035 [facility]: [address] [facility] Normal Protein, Urine Auto negative mg/dL n egative mg/dL [facility]: [address] [facility] High Glucose, Urine (UA) Auto 3+ mg/dL ne gative mg/dL [facility]: [address] [facility] Normal Ketone, Urine Auto negative mg/dL ne gative mg/dL [facility]: [address] [facility] Normal Urobilinogen, Urine Auto 0.2 mg/dL 0 .0-2.0 mg/dL [facility]: [address] [facility] Normal Bilirubin, Urine Auto negative negat regina [facility]: [address] [facility] Normal Nitrite, Urine Auto negative negativ e [facility]: [address] [facility] Normal Leukocyte Esterase, Urine Auto negat regina negative [facility]: [address] [facility] Normal Blood, Urine Blood negative negative [facility]: [address] [facility] Normal WBC, Urine Auto 0 /hpf 0-3 /hpf [facility]: [address] [facility] Normal RBC, Urine Auto 2 /hpf 0-3 /hpf [facility]: [address] [facility] Normal Bacteria, Urine Auto negative negati ve [facility]: [address] [facility] Normal Squamous Epithelial Cell Ur AU 0 /hp f 0-6 /hpf [facility]: [address] [facility] Normal Hyaline Cast, Urine Auto 0 /lpf 0-1 /lpf [facility]: [address] [facility] Past Encounters 07/19/2021 Type 2 Diabetes Mellitus without Complication; Body Mass Index 30+ - Obesity; Tobacco User Steven Veloz MD: [address] [place] [phone], Ph. 06/12/2021 Tobacco User; Chest Pain; Type 2 Diabetes Mellitus without Complication; Body Mass Index 30+ - Obesity; Primary Erectile Dysfunction Steven Veloz MD: [address] [place] [phone], Ph. 05/02/2021 Acute Otitis Externa; Chest Pain; Type 2 Diabetes Mellitus without Complication Steven Veloz MD: [address] [place] [phone], Ph. 03/22/2021 Type 2 Diabetes Mellitus without Complication; Bipolar Disorder; Body Mass Index 30+ - Obesity; Tobacco User; Chest Pain Steven Veloz MD: [address] [place] [phone], Ph. 03/02/2021 Paronychia of Toe of Left Foot Whitney Rogelioo, PA-C: [address] [place] [phone], Ph. 02/12/2021 Depressive Disorder Steven Veloz MD: [address] [place] [address], Ph. 01/09/2021 Administration of SARS-CoV-2 Antigen Vaccine Steven Veloz MD: [address] [place] [phone], Ph. 12/14/2020 Administration of SARS-CoV-2 Antigen Vaccine Steven Veloz MD: [address] [place] [phone], Ph. 11/10/2020 Type 2 Diabetes Mellitus without Complication; Degeneration of Lumbar Intervertebral Disc Steven Veloz MD: [address] [place] [phone], Ph. 10/03/2020 Type 2 Diabetes Mellitus without Complication; Bilateral Earache Steven Veloz MD: [address] [place] [phone], Ph. 09/01/2020 Type 2 Diabetes Mellitus without Complication; Paronychia of Toe Steven Veloz MD: [address] [place] [phone], Ph. 08/25/2020 Steven Veloz MD: [address] [place] [phone], Ph. 08/10/2020 Type 2 Diabetes Mellitus without Complication; Administration of Influenza Vaccine Steven Veloz MD: [address] [place] [phone], Ph. Social History Tobacco Smoking Status Heavy Tobacco Smoker (1 pack per a da y) Vaccine List Vaccine Type COVID-19, mRNA, LNP-S, PF, 100 mcg/0.5 m L dose 10.5 mL 10.5 mL Hep B, adult .5 mL 04/22/20190.5 mL Influenza, injectable, MDCK, preservativ e free, quadrivalent 01/21/20190.5 mL influenza, injectable, quadrivalent, pre servative free 08/31/20190.5 mL 08/10/20200.5 mL influenza, seasonal, injectable 07/13/2015 Plan of Care Reminders Provider Appointments None recorded. Lab None recorded. Referral None recorded. Procedures None recorded. Surgeries None recorded. Imaging None recorded. Vitals 07/19/2021 09:40AM ESTABLISHED [id number] Height Weight BMI Blood Pressure 68 in 249 lbs 8 oz 37.9 kg/m2 109/78 mm[Hg] 06/12/2021 09:00AM PROVIDER REQUESTED Height Weight BMI Blood Pressure 68 in 256 lbs 38.9 kg/m2 135/90 mm[Hg] 05/02/2021 09:00AM PROVIDER REQUESTED Height Weight BMI Blood Pressure 68 in 259 lbs 6 oz 39.4 kg/m2 135/94 mm[Hg] 03/22/2021 09:00AM PROVIDER REQUESTED Height Weight BMI Blood Pressure 68 in 259 lbs 6 oz 39.4 kg/m2 129/88 mm[Hg] 03/02/2021 01:40PM ESTABLISHED [id number] Height Weight BMI Blood Pressure 68 in 259 lbs 6 oz 39.4 kg/m2 123/82 mm[Hg] 02/12/2021 10:00AM TELEHEALTH 20 Height 68 in 11/10/2020 01:00PM ESTABLISHED [id number] Height Weight BMI Blood Pressure 68 in 208 lbs 6 oz 31.7 kg/m2 121/85 mm[Hg] 10/03/2020 02:20PM ESTABLISHED [id number] Height Weight BMI Blood Pressure 68 in 262 lbs 16 oz 40 kg/m2 115/78 mm[Hg] 09/01/2020 01:00PM ESTABLISHED [id number] Height Weight BMI Blood Pressure 68 in 260 lbs 4 oz 39.6 kg/m2 125/83 mm[Hg] 08/10/2020 03:00PM ESTABLISHED [id number] Height Weight BMI Blood Pressure 68 in [...]
--- OUTSIDE RECORDS SUMMARY | 2021-08-12 13:13 | CCD ---
Author Author [facility] Address Unknown Phone Unavailable Support Name Relationship Address Phone Aleyda Goncalves Next Of Kin Unknown Unavailable Kinza Fritz Next Of Kin [address] [place] [address] Leela Castaneda Next Of Kin [address] [place], [place] [id number] Steven Veloz MD Next Of Kin [address] [place] [address] UNanci Next Of Kin Unknown Unavailable SANDIP [place] [address] GERRY VARGAS Next Of Kin Unknown GERRY OJEDA Next Of Kin [address] [facility] [place] [place] [address] GERRY MONIQUE Next Of Kin [address] [place] [address] Selena MUHAMMAD, Carol Next Of Kin [address] [place] [address] NONE, [place] [address] Unavailable KACY GONCALVES Next Of Kin [address] [facility] [place] [place] [address] [place] [address] NOBODY, TIME AT Next Of Kin [address] [place] [address] ALEYDA GONCALVES Next Of Kin [address] [facility] [place] [address] STEPHANIE, [place] [address] ALANNA HATFIELD Next Of Kin [address] [facility] [address] [place] [address] [place] [address] DISABLED Next Of Kin Unknown GERRY OJEDA ECON Unknown Unavailable Aleyda Louie [place] [address] [place] [address] Unavailable ALEYDA GONCALVES ECON [address] [place] [address] [phone] Care Team Providers Care Tip Scourer Name Role Phone Shiv Veloz MD Unavailable Unavailable Shiv Veloz MD Unavailable Unavailable Shiv Veloz MD Unavailable Unavailable Shiv Veloz MD Unavailable Unavailable Shiv Veloz MD Unavailable Unavailable Shiv Veloz MD Unavailable Unavailable Shiv Veloz MD Unavailable Unavailable Shiv Veloz MD Unavailable Unavailable Shiv Veloz MD Unavailable Unavailable Shiv Veloz MD Unavailable Unavailable Shiv Veloz MD Unavailable Unavailable Shiv Veloz MD Unavailable Unavailable Shiv Veloz MD Unavailable Unavailable Shiv Veloz MD Unavailable Unavailable Shiv Veloz MD Unavailable Unavailable Shiv Veloz MD Unavailable Unavailable Shiv Veloz MD Unavailable Unavailable Shiv Veloz MD Unavailable Unavailable Shiv Veloz MD Unavailable Unavailable Shiv Veloz MD Unavailable Unavailable Shiv Veloz MD Unavailable Unavailable Shiv Veloz MD Unavailable Unavailable Shiv Veloz MD Unavailable Unavailable Shiv Veloz MD Unavailable Unavailable Shiv Veloz MD Unavailable Unavailable Shiv Veloz MD Unavailable Unavailable Shiv Veloz MD Unavailable Unavailable Shiv Veloz MD Unavailable Unavailable Shiv Veloz MD Unavailable Unavailable Shiv Veloz MD Unavailable Unavailable Shiv Veloz MD Unavailable Unavailable Shiv Veloz MD Unavailable Unavailable Shiv Veloz MD Unavailable Unavailable Shiv Veloz MD Unavailable Unavailable Shiv Veloz MD Unavailable Unavailable Shiv Veloz MD Unavailable Unavailable Shiv Veloz MD Unavailable Unavailable Shiv Veloz MD Unavailable Unavailable Shiv Veloz MD Unavailable Unavailable Shiv Veloz MD Unavailable Unavailable Shiv Veloz MD Unavailable Unavailable Shiv Veloz MD Unavailable Unavailable Shiv Veloz MD Unavailable Unavailable Shiv Veloz MD Unavailable Unavailable Shiv Veloz MD Unavailable Unavailable Shiv Veloz MD Unavailable Unavailable Shiv Veloz MD Unavailable Unavailable Shiv Veloz MD Unavailable Unavailable Shiv Veloz MD Unavailable Unavailable Shiv Veloz MD Unavailable Unavailable Shiv Veloz MD Unavailable Unavailable Shiv Veloz MD Unavailable Unavailable Shiv Veloz MD Unavailable Unavailable Shiv Veloz MD Unavailable Unavailable Shiv Veloz MD Unavailable Unavailable Shiv Veloz MD Unavailable Unavailable Shiv Veloz MD Unavailable Unavailable Veloz, Shiv Harris MD Unavailable Unavailable Veloz, Shiv Harris MD Unavailable Unavailable Veloz, Shiv Harris MD Unavailable Unavailable Veloz, Shiv Harris MD Unavailable Unavailable Veloz, Shiv Harris MD Unavailable Unavailable Veloz, Shiv Harris MD Unavailable Unavailable Veolz, Shiv Harris MD Unavailable Unavailable Veloz, Shiv Harris MD Unavailable Unavailable Veloz, Shiv Harris MD Unavailable Unavailable Veloz, Shiv Harris MD Unavailable Unavailable Veloz, Shiv Harris MD Unavailable Unavailable Veloz, Shiv Harris MD Unavailable Unavailable Veloz, Shiv Harris MD Unavailable Unavailable Veloz, Shiv Harris MD Unavailable Unavailable Veloz, Shiv Harris MD Unavailable Unavailable Veloz, Shiv Harris MD Unavailable Unavailable Veloz, Shiv Harris MD Unavailable Unavailable Veloz, Shiv Harris MD Unavailable Unavailable Veloz, Shiv Harris MD Unavailable Unavailable Veloz, Shiv Harris MD Unavailable Unavailable Veloz, Shiv Harris MD Unavailable Unavailable Veloz, Shiv Harris MD Unavailable Unavailable Veloz, Shiv Harris MD Unavailable Unavailable Veloz, Shiv Harris MD Unavailable Unavailable Veloz, Shiv Harris MD Unavailable Unavailable Veloz, Shiv Harris MD Unavailable Unavailable Veloz, Shiv Harris MD Unavailable Unavailable Veloz, Shiv Harris MD Unavailable Unavailable Veloz, Shiv Harris MD Unavailable Unavailable Veloz, Shiv Harris MD Unavailable Unavailable Veloz, Shiv Harris MD Unavailable Unavailable Veloz, Shiv Harris MD Unavailable Unavailable Veloz, Shiv Harris MD Unavailable Unavailable Veloz, Shiv Harris MD Unavailable Unavailable Veloz, Shiv Harris MD Unavailable Unavailable Veloz, Shiv Harris MD Unavailable Unavailable Kinza Yanes CONTACT FINGER ASSEMBLER CONTACT FINGER ASSEMBLER Unavailable Unavailable Montenegro, R Russell CRTT Unavailable Unavailable Montenegro, R Russell CRTT Unavailable Unavailable Montenegro, R Russell CRTT Unavailable Unavailable PABLO, B LIAM CRTT Unavailable Unavailable PABLO, B LIAM CRTT Unavailable Unavailable PABLO, B LIAM CRTT Unavailable Unavailable PABLO, B LIAM CRTT Unavailable Unavailable PABLO, B LIAM CRTT Unavailable Unavailable PABLO, B LIAM CRTT Unavailable Unavailable PABLO, B LIAM CRTT Unavailable Unavailable PABLO, B LIAM CRTT Unavailable Unavailable PABLO, B LIAM CRTT Unavailable Unavailable PABLO, B LIAM CRTT Unavailable Unavailable PABLO, B LIAM CRTT Unavailable Unavailable PABLO, B LIAM CRTT Unavailable Unavailable PABLO, B LIAM CRTT Unavailable Unavailable PABLO, B LIAM CRTT Unavailable Unavailable PABLO, B LIAM CRTT Unavailable Unavailable PABLO, B LIAM CRTT Unavailable Unavailable PABLO, B LIAM CRTT Unavailable Unavailable PABLO, B LIAM CRTT Unavailable Unavailable PABLO, B LIAM CRTT Unavailable Unavailable PABLO, B LIAM CRTT Unavailable Unavailable PABLO, B LIAM CRTT Unavailable Unavailable PABLO, B LIAM CRTT Unavailable Unavailable PABLO, B LIAM CRTT Unavailable Unavailable PABLO, B LIAM CRTT Unavailable Unavailable PABLO, B LIAM CRTT Unavailable Unavailable PABLO, B LIAM CRTT Unavailable Unavailable PABLO, B LIAM CRTT Unavailable Unavailable PABLO, B LIAM CRTT Unavailable Unavailable PABLO, B LIAM CRTT Unavailable Unavailable PABLO, B LIAM CRTT Unavailable Unavailable PABLO, B LIAM CRTT Unavailable Unavailable PABLO, B LIAM CRTT Unavailable Unavailable PABLO, B LIAM CRTT Unavailable Unavailable PABLO, B LIAM CRTT Unavailable Unavailable PABLO, B LIAM CRTT Unavailable Unavailable PABLO, B LIAM CRTT Unavailable Unavailable PABLO, B LIAM CRTT Unavailable Unavailable PABLO, B LIAM CRTT Unavailable Unavailable PABLO, B LIAM CRTT Unavailable Unavailable PABLO, B LIAM CRTT Unavailable Unavailable PABLO, B LIAM CRTT Unavailable Unavailable PABLO, B LIAM CRTT Unavailable Unavailable PABLO, B LIAM CRTT Unavailable Unavailable PABLO, B LIAM CRTT Unavailable Unavailable PABLO, B LIAM CRTT Unavailable Unavailable PABLO, B LIAM CRTT Unavailable Unavailable PABLO, B LIAM CRTT Unavailable Unavailable PALBO, B LIAM CRTT Unavailable Unavailable PABLO, B LIAM CRTT Unavailable Unavailable PABLO, B LIAM CRTT Unavailable Unavailable PABLO, B LIAM CRTT Unavailable Unavailable PABLO, B LIAM CRTT Unavailable Unavailable PABLO, B LIAM CRTT Unavailable Unavailable PABLO, B LIAM CRTT Unavailable Unavailable PABLO, B LIAM CRTT Unavailable Unavailable PABLO, B LIAM CRTT Unavailable Unavailable PABLO, B LIAM CRTT Unavailable Unavailable PABLO, B LIAM CRTT Unavailable Unavailable PABLO, B LIAM CRTT Unavailable Unavailable PABLO, B LIAM CRTT Unavailable Unavailable PABLO, B LIAM CRTT Unavailable Unavailable PABLO, B LIAM CRTT Unavailable Unavailable MAJAK, Kim VIRGEN DPM Unavailable Unavailable MAJAK, Kim VIRGEN DPM Unavailable Unavailable MAJAK, Kim VIRGEN DPM Unavailable Unavailable MAJAK, Kim VIRGEN DPM Unavailable Unavailable MAJAK, Kim VIRGEN DPM Unavailable Unavailable MAJAK, Kim VIRGEN DPM Unavailable Unavailable MAJAK, Kim VIRGEN DPM Unavailable Unavailable MAJAK, Kim VIRGEN DPM Unavailable Unavailable MAJAK, R PARAM DPM Unavailable Unavailable MAJAK, R PARAM DPM Unavailable Unavailable MAJAK, R PARAM DPM Unavailable Unavailable MAJAK, R PARAM DPM Unavailable Unavailable MAJAK, R PARAM DPM Unavailable Unavailable MAJAK, R PARAM DPM Unavailable Unavailable MAJAK, R PARAM DPM Unavailable Unavailable MAJAK, R PARAM DPM Unavailable Unavailable MAJAK, R PARAM DPM Unavailable Unavailable MAJAK, R PARAM DPM Unavailable Unavailable MAJAK, R PARAM DPM Unavailable Unavailable MAJAK, R PARAM DPM Unavailable Unavailable MAJAK, R PARAM DPM Unavailable Unavailable MAJAK, R PARAM DPM Unavailable Unavailable MAJAK, R PARAM DPM Unavailable Unavailable MAJAK, R PARAM DPM Unavailable Unavailable MAJAK, R PARAM DPM Unavailable Unavailable MAJAK, R PARAM DPM Unavailable Unavailable MAJAK, R PARAM DPM Unavailable Unavailable MAJAK, R PARAM DPM Unavailable Unavailable MAJAK, R PARAM DPM Unavailable Unavailable MAJAK, R PARAM DPM Unavailable Unavailable MAJAK, R PARAM DPM Unavailable Unavailable Corey Basilio Unavailable [place], Cristy Adrienne PMH-CRTT Unavailable Unavailable Ricky, K Adrienne PMH-CRTT Unavailable Unavailable Ricky, K Adrienne PMH-CRTT Unavailable Unavailable Ricky, K Adrienne PMH-CRTT Unavailable Unavailable Ricky, K Adrienne PMH-CRTT Unavailable Unavailable [place], K Adrienne PMH-CRTT Unavailable Unavailable [place], K Adrienne PMH-CRTT Unavailable Unavailable Ricky, K Adrienne PMH-CRTT Unavailable Unavailable Cesilia Narvaez Unavailable Guido Yanes Kinza CONTACT FINGER ASSEMBLER-BC Unavailable Unavailable Yanes, F Kinza CONTACT FINGER ASSEMBLER-BC Unavailable Unavailable Yanes, F Kinza CONTACT FINGER ASSEMBLER-BC Unavailable Unavailable Yanes, F Kinza CONTACT FINGER ASSEMBLER-BC Unavailable Unavailable Yanes, F Kinza CONTACT FINGER ASSEMBLER-BC Unavailable Unavailable Yanes, F Kinza CONTACT FINGER ASSEMBLER-BC Unavailable Unavailable Yanes, F Kinza CONTACT FINGER ASSEMBLER-BC Unavailable Unavailable Yanes, F Kinza CONTACT FINGER ASSEMBLER-BC Unavailable Unavailable Yanes, F Kinza CONTACT FINGER ASSEMBLER-BC Unavailable Unavailable Yanes, F Kinza CONTACT FINGER ASSEMBLER-BC Unavailable Unavailable Yanes, F Kinza CONTACT FINGER ASSEMBLER-BC Unavailable Unavailable Yanes, F Kinza CONTACT FINGER ASSEMBLER-BC Unavailable Unavailable Yanes, F Kinza CONTACT FINGER ASSEMBLER-BC Unavailable Unavailable Guido Yanes Kinza CONTACT FINGER ASSEMBLER-BC Unavailable Unavailable Guido Yanes CONTACT FINGER ASSEMBLER-BC Unavailable Unavailable Guido Yanes CONTACT FINGER ASSEMBLER-BC Unavailable Unavailable Guido Yanes CONTACT FINGER ASSEMBLER-BC Unavailable Unavailable Guido Yanes CONTACT FINGER ASSEMBLER-BC Unavailable Unavailable Guido Yanes Kinza CONTACT FINGER ASSEMBLER-BC Unavailable Unavailable Guido Yanes CONTACT FINGER ASSEMBLER-BC Unavailable Unavailable Guido Yanes CONTACT FINGER ASSEMBLER-BC Unavailable Unavailable Guido Yanes CONTACT FINGER ASSEMBLER-BC Unavailable Unavailable Guido Yanes Kinza CONTACT FINGER ASSEMBLER-BC Unavailable Unavailable Scordo, M Whitney PA Unavailable Unavailable Scordo, M Whitney PA Unavailable Unavailable Scordo, M Whitney PA Unavailable Unavailable Scordo, M Whitney PA Unavailable Unavailable Scordo, M Whitney PA Unavailable Unavailable Scordo, M Whitney PA Unavailable Unavailable Scordo, M Whitney PA Unavailable Unavailable Scordo, M Whitney PA Unavailable Unavailable Scordo, M Whitney PA Unavailable Unavailable Scordo, M Whitney PA Unavailable Unavailable Scordo, M Whitney PA Unavailable Unavailable Scordo, M Whitney PA Unavailable Unavailable Scordo, M Whitney PA Unavailable Unavailable Scordo, M Whitney PA Unavailable Unavailable Scordo, M Whitney PA Unavailable Unavailable Scordo, M Whitney PA Unavailable Unavailable Scordo, M Whitney PA Unavailable Unavailable Scordo, M Whitney PA Unavailable Unavailable Scordo, M Whitney PA Unavailable Unavailable Scordo, M Whitney PA Unavailable Unavailable Scordo, M Whitney PA Unavailable Unavailable Scordo, M Whitney PA Unavailable Unavailable Scordo, M Whitney PA Unavailable Unavailable Scordo, M Whitney PA Unavailable Unavailable Scordo, M Whitney PA Unavailable Unavailable Scordo, M Whitney PA Unavailable Unavailable Scordo, M Whitney PA Unavailable Unavailable Scordo, M Whitney PA Unavailable Unavailable Scordo, M Whitney PA Unavailable Unavailable Scordo, M Whitney PA Unavailable Unavailable Scordo, M Whitney PA Unavailable Unavailable Scordo, M Whitney PA Unavailable Unavailable Scordo, M Whitney PA Unavailable Unavailable Scordo, M Wihtney PA Unavailable Unavailable Scordo, M Whitney PA Unavailable Unavailable Scordo, M Whitney PA Unavailable Unavailable Scordo, M Whitney PA Unavailable Unavailable Scordo, M Whitney PA Unavailable Unavailable Scordo, M Whitney PA Unavailable Unavailable Scordo, M Whitney PA Unavailable Unavailable Scordo, M Whitney PA Unavailable Unavailable Scordo, M Whitney PA Unavailable Unavailable Scordo, M Whitney PA Unavailable Unavailable Scordo, M Whitney PA Unavailable Unavailable Scordo, M Whitney PA Unavailable Unavailable Scordo, M Whitney PA Unavailable Unavailable Scordo, M Whitney PA Unavailable Unavailable Re-disclosure Warning The records that you are about to access may contain information from federally-assisted alcohol or drug abuse programs. If such information is present, then the following federally mandated warning applies: This information has been disclosed to you from records protected by federal confidentiality rules (42 CFR part 2). The federal rules prohibit you from making any further disclosure of this information unless further disclosure is expressly permitted by the written consent of the person to whom it pertains or as otherwise permitted by 42 CFR part 2. A general authorization for the release of medical or other information is NOT sufficient for this purpose. The Federal rules restrict any use of the information to criminally investigate or prosecute any alcohol or drug abuse patient.The records that you are about to access may contain highly sensitive health information, the redisclosure of which is protected by Article 27-F of the [facility] Public Health law. If you continue you may have access to information: Regarding HIV / AIDS; Provided by facilities licensed or operated by the [facility] Office of Mental Health; or Provided by the [facility] Office for People With Developmental Disabilities. If such information is present, then the following [facility] mandated warning applies: This information has been disclosed to you from confidential records which are protected by state law. State law prohibits you from making any further disclosure of this information without the specific written consent of the person to whom it pertains, or as otherwise permitted by law. Any unauthorized further disclosure in violation of state law may result in a fine or fdc sentence or both. A general authorization for the release of medical or other information is NOT sufficient authorization for further disc losure. Allergies and Adverse Reactions Type Description Substance Reaction Status Data Source(s ) Propensity to adverse reactions to substance Penicillins Penicillins Active [facility] ([facility]) Propensity to adverse reactions to substance chlorpromazine Chlorpromazine hydrochloride 100 MG Oral Tablet Active [facility] ([facility]) Family History Family Member Name Family Member Gender Family Member Status Date o f Status Description Data Source(s) Unknown Unknown Problem [facility] ([facility]) Encounters Encounter Providers Location Date Indications Data Source(s ) Steven Veloz MD: [address] [place] [phone], Ph. Attender: Steven Veloz MD [facility] Medical 07/19/2021 12:00:00 AM EDT [facility] ([facility]) Extended Individual Psychotherapy - 45 min Attender: [facility] 07/02/2021 10:45:00 AM EDT - 07/02/2021 10:45:00 AM EDT [facility] ([facility]) Attender: [facility] 07/02/2021 12:00:00 AM EDT [facility] ([facility]) TEMPMHCTelemed 30" Psychotherapy Attender: [facility] 06/14/2021 12:30:00 PM EDT - 06/14/2021 12:30:00 PM EDT [facility] ([facility]) Attender: [facility] 06/14/2021 12:00:00 AM EDT [facility] ([facility]) Steven Veloz MD: [address] [place] [phone], Ph. Attender: Steven Veloz MD [facility] Medical 06/12/2021 12:00:00 AM EDT JEFF ([facility]) Steven Veloz MD: [address] [place] [phone], Ph. Attender: Steven Veloz MD [facility] Medical 06/12/2021 12:00:00 AM EDT [facility] ([facility]) Brief Individual Psychotherapy - 30 min Attender: [facility] 05/31/2021 12:30:00 PM EDT - 05/31/2021 12:30:00 PM EDT [facility] ([facility]) Attender: Corey Basilio 05/31/2021 12:00:00 AM EDT [facility] ([facility]) Outpatient Attender: Russell Montenegro NP [facility] 05/30/2021 10:45:00 AM EDT - 05/30/2021 10:45:00 AM EDT [facility] ([facility]) Attender: Russell Montenegro NP 05/30/2021 12:00:00 AM EDT [facility] ([facility]) Steven Veloz MD: [address] [place] [address], Ph. Attender: Steven Veloz MD [facility] Medical 05/02/2021 12:00:00 AM EDT JE[facility] ([facility]) Steven Veloz MD: [address] [place] [address], Ph. Attender: Steven Veloz MD [facility] Medical 05/02/2021 12:00:00 AM EDT JE[facility] ([facility]) Steven Veloz MD: [address] [place] [address], Ph. Attender: Steven Veloz MD [facility] Medical 05/02/2021 12:00:00 AM EDT JE[facility] ([facility]) [id number]"Psychotherapy Attender: Corey Basilio [facility] 05/01/2021 01:00:00 AM EDT - 05/01/2021 01:00:00 AM EDT [facility] ([facility]) Attender: Corey Basilio 05/01/2021 12:00:00 AM EDT [facility] ([facility]) Unknown [address] [facility] [address] 04/03/2021 12:00:00 AM EDT eCW1 ([facility]) Extended Individual Psychotherapy - 45 min Attender: Corey Basilio [facility] 03/26/2021 10:45:00 AM EDT - 03/26/2021 10:45:00 AM EDT [facility] ([facility]) Attender: Corey Basilio 03/26/2021 12:00:00 AM EDT [facility] ([facility]) Steven eVloz MD: [address] [place] [address], Ph. Attender: Steven Veloz MD [facility] Medical 03/22/2021 12:00:00 AM EDT JEFF ([facility]) Steven Veloz MD: [address] [place] [address], Ph. Attender: Steven Veloz MD [facility] Medical 03/22/2021 12:00:00 AM EDT JE[facility] ([facility]) Steven Veloz MD: [address] [place] [address], Ph. Attender: Steven Veloz MD [facility] Medical 03/22/2021 12:00:00 AM EDT JE[facility] ([facility]) Steven Veloz MD: [address] [place] [address], Ph. Attender: Steven Veloz MD [facility] Medical 03/22/2021 12:00:00 AM EDT JE[facility] ([facility]) Steven Veloz MD: [address] [place] [address], Ph. Attender: Steven Veloz MD [facility] Medical 03/22/2021 12:00:00 AM EDT JE[facility] ([facility]) Steven Veloz MD: [address] [place] [address], Ph. Attender: Steven Veloz MD [facility] Medical 03/22/2021 12:00:00 AM EDT JEFF ([facility]) Outpatient Attender: PARAM VENTURA [facility] 02/11 09:45:00 AM EDT MED[facility] ([facility] VITOR CervantesC: [address], [place] [address], Ph. Attender: Whitney [facility] Medical 03/02/2021 12:00:00 AM EDT JEFF ([facility]) Whitney Flores PA-C: [address], [place] [address], Ph. Attender: Whitney [facility] Medical 03/02/2021 12:00:00 AM EDT [place] ([facility]) Whitney Flores PA-C: [address], [place] [address], Ph. Attender: Whitney [facility] Medical 03/02/2021 12:00:00 AM EDT [place] ([facility]) Whitney Flores PA-C: [address], [place] [address], Ph. Attender: Whitney [facility] Medical 03/02/2021 12:00:00 AM EDT [place] ([facility]) Whitney Flores PA-C: [address], [place] [address], Ph. Attender: Whitney [facility] Medical 03/02/2021 12:00:00 AM EDT [facility] ([facility]) Whitney Flores PA-C: [address] [place] [address], Ph. Attender: Whitney [facility] Medical 03/02/2021 12:00:00 AM EDT [facility] ([facility]) Whitney Flores PA-C: [address] [place] [address], Ph. Attender: Whitney [facility] Medical 03/02/2021 12:00:00 AM EDT [facility] ([facility]) Extended Individual Psychotherapy - 45 min Attender: [facility] 02/26/2021 12:00:00 PM EDT - 02/26/2021 12:00:00 PM EDT [facility] ([facility]) Attender: Corey Basilio 02/26/2021 12:00:00 AM EDT [facility] ([facility]) Unknown [address] [facility] [address] 02/21/2021 12:00:00 AM EDT eCW1 ([facility]) Steven Veloz MD: [address] [place] [address], Ph. Attender: Steven Veloz MD [facility] Medical 02/12/2021 12:00:00 AM EDT [facility] ([facility]) Steven Veloz MD: [address] [place] [address], Ph. Attender: Steven Veloz MD [facility] Medical 02/12/2021 12:00:00 AM EDT [facility] ([facility]) Steven Veloz MD: [address] [place] [address], Ph. Attender: Steven Veloz MD [facility] Medical 02/12/2021 12:00:00 AM EDT [facility] ([facility]) Steven Veloz MD: [address] [place] [address], Ph. Attender: Steven Veloz MD [facility] Medical 02/12/2021 12:00:00 AM EDT [facility] ([facility]) Steven Veloz MD: [address] [place] [address], Ph. Attender: Steven Veloz MD [facility] Medical 02/12/2021 12:00:00 AM EDT [facility] ([facility]) Steven Veloz MD: [address] [place] [address], Ph. Attender: Steven Veloz MD [facility] Medical 02/12/2021 12:00:00 AM EDT [facility] ([facility]) Steven Veloz MD: [address] [place] [address], Ph. Attender: Steven Veloz MD [facility] Medical 02/12/2021 12:00:00 AM EDT [facility] ([facility]) Steven Veloz MD: [address] [place] [address], Ph. Attender: Steven Veloz MD [facility] Medical 02/12/2021 12:00:00 AM EDT [facility] ([facility]) Steven Veloz MD: [address] [place] [address], Ph. Attender: Steven Veloz MD [facility] Medical 02/12/2021 12:00:00 AM EDT [facility] [facility] Brief Individual Psychotherapy - 30 min Attender: Corey Basilio [facility] 02/07/2021 11:30:00 AM EDT - 02/07/2021 11:30:00 AM EDT [facility] ([facility]) Attender: Corey Basilio 02/07/2021 12:00:00 AM EDT [facility] ([facility]) Unknown [address] [facility] [address] 01/24/2021 12:00:00 AM EDT eCW1 ([facility]) [id number]"Psychotherapy Attender: Corey Basilio [facility] 01/18/2021 06:00:00 AM EDT - 01/18/2021 06:00:00 AM EDT [facility] ([facility]) Attender: Corey Basilio 01/18/2021 12:00:00 AM EDT [facility] ([facility]) Steven Veloz MD: [address] [place] [address], Ph. Attender: Steven Veloz MD [facility] Medical 01/09/2021 12:00:00 AM EDT JEFF ([facility]) Steven Veloz MD: [address] [place] [address], Ph. Attender: Steven Veloz MD [facility] Medical 01/09/2021 12:00:00 AM EDT JEFF ([facility]) Steven Veloz MD: [address] [place] [address], Ph. Attender: Steven Veloz MD [facility] Medical 01/09/2021 12:00:00 AM EDT JEFF ([facility]) Steven Veloz MD: [address] [place] [address], Ph. Attender: Steven Veloz MD [facility] Medical 01/09/2021 12:00:00 AM EDT JEFF ([facility]) Steven Veloz MD: [address] [place] [address], Ph. Attender: Steven Veloz MD [facility] Medical 01/09/2021 12:00:00 AM EDT JEFF ([facility]) Steven Veloz MD: [address] [place] [address], Ph. Attender: Steven Veloz MD [facility] Medical 01/09/2021 12:00:00 AM EDT JEFF ([facility]) Steven Veloz MD: [address] [place] [address], Ph. Attender: Steven Veloz MD [facility] Medical 01/09/2021 12:00:00 AM EDT JEFF ([facility]) Steven Veloz MD: [address] [place] [address], Ph. Attender: Steven Veloz MD [facility] Medical 01/09/2021 12:00:00 AM EDT JEFF ([facility]) Steven Veloz MD: [address] [place] [address], Ph. Attender: Steven Veloz MD [facility] Medical 01/09/2021 12:00:00 AM EDT JEFF ([facility]) Steven Veloz MD: [address] [place] [address], Ph. Attender: Steven Veloz MD [facility] Medical 01/09/2021 12:00:00 AM EDT JEFF ([facility]) Extended Individual Psychotherapy - 45 min Attender: Corey Basilio [facility] 12/28/2020 12:00:00 PM EDT - 12/28/2020 12:00:00 PM EDT [facility] ([facility]) Attender: Corey Basilio 12/28/2020 12:00:00 AM EDT [facility] ([facility]) Steven Veloz MD: [address] [place] [address], Ph. Attender: Steven Veloz MD [facility] Medical 12/14/2020 12:00:00 AM EST JEFF ([facility]) Steven Veloz MD: [address] [place] [address], Ph. Attender: Steven Veloz MD [facility] Medical 12/14/2020 12:00:00 AM EST JEFF ([facility]) Steven Veloz MD: [address] [place] [address], Ph. Attender: Steven Veloz MD [facility] Medical 12/14/2020 12:00:00 AM EST JEFF ([facility]) Steven Veloz MD: [address] [place] [address], Ph. Attender: Steven Veloz MD [facility] Medical 12/14/2020 12:00:00 AM EST JEFF ([facility]) Steven Veloz MD: [address] [place] [address], Ph. Attender: Steven Veloz MD [facility] Medical 12/14/2020 12:00:00 AM EST JEFF ([facility]) Steven Veloz MD: [address] [place] [address], Ph. Attender: Steven Veloz MD [facility] Medical 12/14/2020 12:00:00 AM EST JEFF ([facility]) Steven Veloz MD: [address] [place] [address], Ph. Attender: Steven Veloz MD [facility] Medical 12/14/2020 12:00:00 AM EST JEFF ([facility]) Steven Veloz MD: [address] [place] [address], Ph. Attender: Steven Veloz MD [facility] Medical 12/14/2020 12:00:00 AM EST JEFF ([facility]) Steven Veloz MD: [address] [place] [address], Ph. Attender: Steven Veloz MD [facility] Medical 12/14/2020 12:00:00 AM EST JEFF ([facility]) Steven Veloz MD: [address] [place] [address], Ph. Attender: Steven Veloz MD [facility] Medical 12/14/2020 12:00:00 AM EST JEFF ([facility]) Steven Veloz MD: [address] [place] [address], Ph. Attender: Steven Veloz MD [facility] Medical 12/14/2020 12:00:00 AM EST JEFF ([facility]) Outpatient Attender: Adrienne García [facility] 12/11/2020 09:30:00 AM EST - 12/11/2020 09:30:00 AM EST [facility] ([facility]) Attender: Adrienne García [facility] 12/11/2020 12: 00:00 AM EST [facility] ([facility]) Extended Individual Psychotherapy - 45 min Attender: Corey Basilio [facility] 12/07/2020 12:00:00 PM EST - 12/07/2020 12:00:00 PM EST [facility] ([facility]) Attender: Corey Basilio 12/07/2020 12:00:00 AM EST [facility] ([facility]) Outpatient [facility] [address] 12/06/2020 12:00:00 AM EST eCW1 ([facility]) Outpatient Attender: LIAM SHAH [facility] Physical Therapy 02:30:00 PM EST MEDENT ([facility]) Steven Veloz MD: [address] [place] [address], Ph. Attender: Steven Veloz MD [facility] Medical 11/10/2020 12:00:00 AM EST JEFF ([facility]) Steven Veloz MD: [address] [place] [address], Ph. Attender: Steven Veloz MD [facility] Medical 11/10/2020 12:00:00 AM EST JEFF ([facility]) Steven Veloz MD: [address] [place] [address], Ph. Attender: Steven Veloz MD [facility] Medical 11/10/2020 12:00:00 AM EST JEFF ([facility]) Steven Veloz MD: [address] [place] [address], Ph. Attender: Steven Veloz MD [facility] Medical 11/10/2020 12:00:00 AM EST JFEF ([facility]) Steven Veloz MD: [address] [place] [address], Ph. Attender: Steven Veloz MD [facility] Medical 11/10/2020 12:00:00 AM EST JEFF ([facility]) Steven Veloz MD: [address] [place] [address], Ph. Attender: Steven Veloz MD [facility] Medical 11/10/2020 12:00:00 AM EST JEFF ([facility]) Steven Veloz MD: [address] [place] [address], Ph. Attender: Steven Veloz MD [facility] Medical 11/10/2020 12:00:00 AM EST JEFF ([facility]) Steven Veloz MD: [address] [place] [address], Ph. Attender: Steven Veloz MD [facility] Medical 11/10/2020 12:00:00 AM EST JEFF ([facility]) Steven Veloz MD: [address] [place] [address], Ph. Attender: Steven Veloz MD [facility] Medical 11/10/2020 12:00:00 AM EST JEFF ([facility]) Steven Veloz MD: [address] [place] [address], Ph. Attender: Steven Veloz MD [facility] Medical 11/10/2020 12:00:00 AM EST JEFF ([facility]) Steven Veloz MD: [address] [place] [address], Ph. Attender: Steven Veloz MD [facility] Medical 11/10/2020 12:00:00 AM EST JEFF ([facility]) Steven Veloz MD: [address] [place] [address], Ph. Attender: Steven Veloz MD [facility] Medical 11/10/2020 12:00:00 AM EST JEFF ([facility]) TEMPMHCTelemed 30" Psychotherapy Attender: Corey Basilio [facility] 11/07/2020 12:00:00 PM EST - 11/07/2020 12:00:00 PM EST [facility] ([facility]) Attender: Corey Basilio 11/07/2020 12:00:00 AM EST [facility] ([facility]) Outpatient [address] [facility] [place] [address] 11/01/2020 12:00:00 AM EST eCW1 ([facility]) Outpatient Attender: Adrienne García [facility] 10/25/2020 10:00:00 AM EST - 10/25/2020 10:00:00 AM EST [facility] ([facility]) Attender: Adrienne García [facility] 10/25/2020 12: 00:00 AM EST [facility] ([facility]) Extended Individual Psych[facility] - 45 min [facility] 12:00:00 PM EST - 10/20/2020 12:00:00 PM EST [facility] ([facility]) Attender: Corey Basilio 10/20/2020 12:00:00 AM EST [facility] ([facility]) Outpatient Attender: LIAM SHAH NP Physical Therapy 12:15:00 PM EST MEDENT ([facility]) Unknown [address] [facility] [place] [address] 10/16/2020 12:00:00 AM EST eCW1 ([facility]) Steven Veloz MD: [address] [place] [address], Ph. Attender: Steven Veloz MD [facility] Medical 10/03/2020 12:00:00 AM EST JEFF ([facility]) Steven Veloz MD: [address] [place] [address], Ph. Attender: Steven Veloz MD [facility] Medical 10/03/2020 12:00:00 AM EST JEFF ([facility]) Steven Veloz MD: [address] [place] [address], Ph. Attender: Steven Veloz MD [facility] Medical 10/03/2020 12:00:00 AM EST JEFF ([facility]) Steven Veloz MD: [address] [place] [address], Ph. Attender: Steven Veloz MD [facility] Medical 10/03/2020 12:00:00 AM EST JEFF ([facility]) Steven Veloz MD: [address] [place] [address], Ph. Attender: Steven Veloz MD [facility] Medical 10/03/2020 12:00:00 AM EST JEFF ([facility]) Steven Veloz MD: [address] [place] [address], Ph. Attender: Steven Veloz MD [facility] Medical 10/03/2020 12:00:00 AM EST JEFF ([facility]) Steven Veloz MD: [address] [place] [address], Ph. Attender: Steven Veloz MD [facility] Medical 10/03/2020 12:00:00 AM EST JEFF ([facility]) Steven Veloz MD: [address] [place] [address], Ph. Attender: Steven Veloz MD [facility] Medical 10/03/2020 12:00:00 AM EST JEFF ([facility]) Steven Velzo MD: [address] [place] [address], Ph. Attender: Steven Veloz MD [facility] Medical 10/03/2020 12:00:00 AM EST JEFF ([facility]) Steven Veloz MD: [address] [place] [address], Ph. Attender: Steven Veloz MD [facility] Medical 10/03/2020 12:00:00 AM EST JEFF ([facility]) Steven Veloz MD: [address] [place] [address], Ph. Attender: Steven Veloz MD [facility] Medical 10/03/2020 12:00:00 AM EST JEFF ([facility]) Steven Veloz MD: [address] [place] [address], Ph. Attender: Steven Veloz MD [facility] Medical 10/03/2020 12:00:00 AM EST JEFF ([facility]) Steven Veloz MD: [address] [place] [address], Ph. Attender: Steven Veloz MD [facility] Medical 10/03/2020 12:00:00 AM EST JEFF ([facility]) Steven Veloz MD: [address] [place] [address], Ph. Attender: Steven Veloz MD [facility] Medical 10/03/2020 12:00:00 AM EST JEFF ([facility]) Attender: Corey Basilio 09/28/2020 12:00:00 AM EST [facility] ([facility]) Extended Individual Psychotherapy - 45 min Attender: Corey Basilio [facility] 09/26/2020 12:00:00 PM EST - 09/26/2020 12:00:00 PM EST [facility] ([facility]) Outpatient Attender: PARAM VENTURA [facility] 09/12 01:00:00 PM EST MEDENT ([facility] Outpatient Attender: Adrienne García [facility] 09/21/2020 09:30:00 AM EST - 09/21/2020 09:30:00 AM EST [facility] ([facility]) Attender: Adrienne Ricky [facility] 09/21/2020 12: 00:00 AM EST [facility] ([facility]) Extended Individual Psychotherapy - 45 min Att[facility]: [facility] 09/11/2020 02:00:00 AM EST - 09/11/2020 02:00:00 AM EST [facility] ([facility]) Attender: Corey Chetna 09/11/2020 12:00:00 AM EST [facility] ([facility]) Steven Veloz MD: [address] [place] [address], Ph. Attender: Steven Veloz MD [facility] Medical 09/01/2020 12:00:00 AM EST JEFF ([facility]) Steven Veloz MD: [address] [place] [address], Ph. Attender: Steven Veloz MD [facility] Medical 09/01/2020 12:00:00 AM EST JEFF ([facility]) Steven Veloz MD: [address] [place] [address], Ph. Attender: Steven Veloz MD [facility] Medical 09/01/2020 12:00:00 AM EST JEFF ([facility]) Steven Veloz MD: [address] [place] [address], Ph. Attender: Steven Veloz MD [facility] Medical 09/01/2020 12:00:00 AM EST JEFF ([facility]) Steven Veloz MD: [address] [place] [address], Ph. Attender: Steven Veloz MD [facility] Medical 09/01/2020 12:00:00 AM EST JEFF ([facility]) Steven Veloz MD: [address] [place] [address], Ph. Attender: Steven Veloz MD [facility] Medical 09/01/2020 12:00:00 AM EST JEFF ([facility]) Stveen Veloz MD: [address] [place] [address], Ph. Attender: Steven Veloz MD [facility] Medical 09/01/2020 12:00:00 AM EST JEFF ([facility]) Steven Veloz MD: [address] [place] [address], Ph. Attender: Steven Veloz MD [facility] Medical 09/01/2020 12:00:00 AM EST JEFF ([facility]) Steven Veloz MD: [address] [place] [address], Ph. Attender: Steven Veloz MD [facility] Medical 09/01/2020 12:00:00 AM EST JEFF ([facility]) Steven Veloz MD: [address] [place] [address], Ph. Attender: Steven Veloz MD [facility] Medical 09/01/2020 12:00:00 AM EST JEFF ([facility]) Steven Veloz MD: [address] [place] [address], Ph. Attender: Steven Veloz MD [facility] Medical 09/01/2020 12:00:00 AM EST JEFF ([facility]) Steven Veloz MD: [address] [place] [address], Ph. Attender: Steven Veloz MD [facility] Medical 09/01/2020 12:00:00 AM EST JEFF ([facility]) Steven Veloz MD: [address] [place] [address], Ph. Attender: Steven Veloz MD [facility] Medical 09/01/2020 12:00:00 AM EST JEFF ([facility]) Steven Veloz MD: [address] [place] [address], Ph. Attender: Steven Veloz MD [facility] Medical 09/01/2020 12:00:00 AM EST JEFF ([facility]) Steven Veloz MD: [address] [place] [address], Ph. Attender: Steven Veloz MD [facility] Medical 09/01/2020 12:00:00 AM EST JEFF ([facility]) Steven Veloz MD: [address] [place] [address], Ph. Attender: Steven Veloz MD [facility] Medical 08/25/2020 12:00:00 AM EST JEFF ([facility]) Steven Veloz MD: [address] [place] [address], Ph. Attender: Steven Veloz MD [facility] Medical 08/25/2020 12:00:00 AM EST JEFF ([facility]) Steven Veloz MD: [address] [place] [address], Ph. Attender: Steven Veloz MD [facility] Medical 08/25/2020 12:00:00 AM EST JEFF ([facility]) Steven Veloz MD: [address] [place] [address], Ph. Attender: Steven Veloz MD [facility] Medical 08/25/2020 12:00:00 AM EST JEFF ([facility]) Steven Veloz MD: [address] [place] [address], Ph. Attender: Steven Veloz MD [facility] Medical 08/25/2020 12:00:00 AM EST JEFF ([facility]) Steven Veloz MD: [address] [place] [address], Ph. Attender: Steven Veloz MD [facility] Medical 08/25/2020 12:00:00 AM EST JEFF ([facility]) Steven Veloz MD: [address] [place] [address]8 [address], Ph. Attender: Steven Veloz MD [facility] Medical 08/25/2020 12:00:00 AM EST JEFF ([facility]) Steven Veloz MD: [address] [place] [address]4 [address], Ph. Attender: Steven Veloz MD [facility] Medical 08/25/2020 12:00:00 AM EST JEFF ([facility]) Steven Veloz MD: [address] [place] [address], Ph. Attender: Steven Veloz MD [facility] Medical 08/25/2020 12:00:00 AM EST JEFF ([facility]) Steven Veloz MD: [address] [place] [address] 504, Ph. Attender: Steven Veloz MD [facility] Medical 08/25/2020 12:00:00 AM EST JEFF ([facility]) Steven Veloz MD: [address] [place] [address]3 [address], Ph. Attender: Steven Veloz MD [facility] Medical 08/25/2020 12:00:00 AM EST JEFF ([facility]) Steven Veloz MD: [address] [place] [address]7 [address], Ph. Attender: Steven Veloz MD [facility] Medical 08/25/2020 12:00:00 AM EST JEFF ([facility]) Steven Veloz MD: [address] [place] [address], Ph. Attender: Steven Veloz MD [facility] Medical 08/25/2020 12:00:00 AM EST JEFF ([facility]) Steven Veloz MD: [address] [place] [address], Ph. Attender: Steven Veloz MD [facility] Medical 08/25/2020 12:00:00 AM EST JEFF ([facility]) Steven Veloz MD: [address] [place] [address], Ph. Attender: Steven Veloz MD [facility] Medical 08/25/2020 12:00:00 AM EST JEFF ([facility]) Outpatient Attender: Adrienne García [facility] 08/24/2020 09:30:00 AM EST - 08/24/2020 09:30:00 AM EST [facility] ([facility]) Attender: Adrienne García [facility] 08/24/2020 12: 00:00 AM EST [facility] ([facility]) Outpatient Attender: LIAM SHAH NP Physical Therapy 02:15:00 PM EST MEDENT ([facility]) Brief Individual Psychotherapy - 30 min Attender: Cesilia rivera [facility] 08/17/2020 12:00:00 PM EST - 08/17/2020 12:00:00 PM EST [facility] ([facility]) Attender: Cesilia Narvaez 08/17/2020 12:00:00 AM EST [facility] ([facility]) Outpatient Attender: JLUIS HINTON 08/10/2020 02:40:00 PM EDT [facility] Steven Veloz MD: [address] [place] [address], Ph. Attender: Steven Veloz MD [facility] Medical 08/10/2020 12:00:00 AM EDT JEFF ([facility]) Steven Veloz MD: [address] [place] [address], Ph. Attender: Steven Veloz MD [facility] Medical 08/10/2020 12:00:00 AM EDT JEFF ([facility]) Steven Veloz MD: [address] [place] [address]1 504, Ph. Attender: Steven Veloz MD [facility] Medical 08/10/2020 12:00:00 AM EDT JEFF ([facility]) Steven Veloz MD: [address] [place] [address]4 504, Ph. Attender: Steven Veloz MD [facility] Medical 08/10/2020 12:00:00 AM EDT JEFF ([facility]) Steven Veloz MD: [address] [place] [address]7 504, Ph. Attender: Steven Veloz MD [facility] Medical 08/10/2020 12:00:00 AM EDT JEFF ([facility]) Steven Veloz MD: [address] [place] [address]2 504, Ph. Attender: Steven Veloz MD [facility] Medical 08/10/2020 12:00:00 AM EDT JEFF ([facility]) Steven Veloz MD: [address] [place] [address]2 504, Ph. Attender: Steven Veloz MD [facility] Medical 08/10/2020 12:00:00 AM EDT JEFF ([facility]) Steven Veloz MD: [address] [place] [address]0 504, Ph. Attender: Steven Veloz MD [facility] Medical 08/10/2020 12:00:00 AM EDT JEFF ([facility]) Steven Veloz MD: [address] [place] [address]7 [address], Ph. Attender: Steven Veloz MD [facility] Medical 08/10/2020 12:00:00 AM EDT JEFF ([facility]) Steven Veloz MD: [address] [place] [address]6 [address], Ph. Attender: Steven Veloz MD [facility] Medical 08/10/2020 12:00:00 AM EDT JEFF ([facility]) Steven Veloz MD: [address] [place] [address]1 504, Ph. Attender: Steven Veloz MD [facility] Medical 08/10/2020 12:00:00 AM EDT JEFF ([facility]) Steven Veloz MD: [address] [place] [address]0 [address], Ph. Attender: Steven Veloz MD [facility] Medical 08/10/2020 12:00:00 AM EDT JEFF ([facility]) Steven Veloz MD: [address] [place] [address]3 504, Ph. Attender: Steven Veloz MD [facility] Medical 08/10/2020 12:00:00 AM EDT JEFF ([facility]) Steven Veloz MD: [address] [place] [address]4 504, Ph. Attender: Steven Veloz MD [facility] Medical 08/10/2020 12:00:00 AM EDT JEFF ([facility]) Steven Veloz MD: [address] [place] [address]-3 504, Ph. Attender: Steven Veloz MD [facility] Medical 08/10/2020 12:00:00 AM EDT JEFF ([facility]) Steven Veloz MD: [address] [place] [address]-0 504, Ph. Attender: Steven Veloz MD [facility] Medical 08/10/2020 12:00:00 AM EDT JEFF ([facility]) Steven Veloz MD: [address] [place] [address]3 504, Ph. Attender: Steven Veloz MD [facility] Medical 08/10/2020 12:00:00 AM EDT JEFF ([facility]) Outpatient Attender: Kinza BELLA FP 07/28/2020 02: 10:01 PM EDT [facility] Outpatient Attender: JLUIS HINTON 07/28/2020 01:17:00 PM EDT [facility] Outpatient Attender: Adrienne García [facility] 07/25/2020 09:00:00 AM EDT - 07/25/2020 09:00:00 AM EDT [facility] ([facility]) Attender: Adrienne POTTSHONORIO 07/25/2020 12: 00:00 AM EDT [facility] ([facility]) Brief Individual Psychotherapy - 30 min Attender: Cesilia rivera [facility] 07/20/2020 04:00:00 AM EDT - 07/20/2020 04:00:00 AM EDT [facility] ([facility]) Attender: Cesilia Narvaez 07/20/2020 12:00:00 AM EDT [facility] ([facility]) Outpatient Attender: Kinza BAZZI-BC FP 07/19/2020 08: 05:59 AM EDT [facility] TEMPMHCTelemed 30" Psych[facility]/06/2020 04:30:00 AM EDT - 07/06/2020 04:30:00 AM EDT [facility] ([facility]) Attender: Cesilia Bryanan 07/06/2020 12:00:00 AM EDT [facility] ([facility]) Outpatient Attender: Kinza BELLA FP 07/05/2020 10: 30:05 AM EDT [facility] Outpatient Attender: Kinza BELLA FP 06/22/2020 02: 49:39 PM EDT [facility] TEMPMHCTelemed 30" Psychotherapy [facility] 06/16/2020 04:30:00 AM EDT - 06/16/2020 04:30:00 AM EDT [facility] ([facility] [place]) Attender: Cesilia Brice 06/16/2020 12:00:00 AM EDT [facility] ([facility] [place]) Outpatient Attender: LIMA SHAH NP Physical Therapy 02:45:00 PM EDT [facility] ([facility]) Functional Status Immunizations Vaccine Date Status Description Data Source(s) COVID-19, mRNA, LNP-S, PF, 100 mcg/0.5 mL dose 01/10/2021 04 :55:18 PM EDT completed .5 mL JEFF ([facility]) COVID-19, mRNA, LNP-S, PF, 100 mcg/0.5 mL dose 01/10/2021 04 :55:18 PM EDT completed .5 mL [facility] ([facility]) COVID-19, mRNA, LNP-S, PF, 100 mcg/0.5 mL dose 01/10/2021 04 :55:18 PM EDT completed .5 mL [facility] ([facility]) COVID-19, mRNA, LNP-S, PF, 100 mcg/0.5 mL dose 01/10/2021 04 :55:18 PM EDT completed .5 mL [facility] ([facility]) COVID-19, mRNA, LNP-S, PF, 100 mcg/0.5 mL dose 01/10/2021 04 :55:18 PM EDT completed .5 mL [place] ([facility]) COVID-19, mRNA, LNP-S, PF, 100 mcg/0.5 mL dose 01/10/2021 04 :55:18 PM EDT completed .5 mL [facility]) COVID-19, mRNA, LNP-S, PF, 100 mcg/0.5 mL dose 01/10/2021 04 :55:18 PM EDT completed .5 mL [place] ([facility]) COVID-19, mRNA, LNP-S, PF, 100 mcg/0.5 mL dose 01/10/2021 04 :55:18 PM EDT completed .5 mL [facility]) COVID-19, mRNA, LNP-S, PF, 100 mcg/0.5 mL dose 01/10/2021 04 :55:18 PM EDT completed .5 mL [place] ([facility]) COVID-19, mRNA, LNP-S, PF, 100 mcg/0.5 mL dose 01/10/2021 04 :55:18 PM EDT completed .5 mL [place] ([facility]) COVID-19 VACCINE Moderna 01/10/2021 12:00:00 AM EDT completed [employer] Vaccine Series Complete: YESThis Data wa s Submitted to [facility] Via [employer]. COVID-19, mRNA, LNP-S, PF, 100 mcg/0.5 mL dose 12/14/2020 05 :16:13 PM EST completed .5 mL [facility]) COVID-19, mRNA, LNP-S, PF, 100 mcg/0.5 mL dose 12/14/2020 05 :16:13 PM EST completed .5 mL [facility]) COVID-19, mRNA, LNP-S, PF, 100 mcg/0.5 mL dose 12/14/2020 05 :16:13 PM EST completed .5 mL [facility]) COVID-19, mRNA, LNP-S, PF, 100 mcg/0.5 mL dose 12/14/2020 05 :16:13 PM EST completed .5 mL [facility]) COVID-19, mRNA, LNP-S, PF, 100 mcg/0.5 mL dose 12/14/2020 05 :16:13 PM EST completed .5 mL [facility]) COVID-19, mRNA, LNP-S, PF, 100 mcg/0.5 mL dose 12/14/2020 05 :16:13 PM EST completed .5 mL [facility]) COVID-19, mRNA, LNP-S, PF, 100 mcg/0.5 mL dose 12/14/2020 05 :16:13 PM EST completed .5 mL [facility]) COVID-19, mRNA, LNP-S, PF, 100 mcg/0.5 mL dose 12/14/2020 05 :16:13 PM EST completed .5 mL [facility]) COVID-19, mRNA, LNP-S, PF, 100 mcg/0.5 mL dose 12/14/2020 05 :16:13 PM EST completed .5 mL [facility]) COVID-19, mRNA, LNP-S, PF, 100 mcg/0.5 mL dose 12/14/2020 05 :16:13 PM EST completed .5 mL [facility]) COVID-19, mRNA, LNP-S, PF, 100 mcg/0.5 mL dose 12/14/2020 05 :16:13 PM EST completed .5 mL [facility]) COVID-19 VACCINE Moderna 12/14/2020 12:00:00 AM EST completed [facility] Vaccine Series Complete: NOThis Data was Submitted to [facility] Via [employer]. New in 2011. IIV4 08/10/2020 03:51:00 PM EDT completed .5 mL JE[facility] ([facility]) New in 2011. IIV4 08/10/2020 03:51:00 PM EDT completed .5 mL [facility] ([facility]) New in 2011. IIV4 08/10/2020 03:51:00 PM EDT completed .5 mL [facility] ([facility]) New in 2011. IIV4 08/10/2020 03:51:00 PM EDT completed .5 mL [facility] ([facility]) New in 2011. IIV4 08/10/2020 03:51:00 PM EDT completed .5 mL JE[facility] ([facility]) New in 2011. IIV4 08/10/2020 03:51:00 PM EDT completed .5 mL [facility] ([facility]) New in 2011. IIV4 08/10/2020 03:51:00 PM EDT completed .5 mL [facility] ([facility]) New in 2011. IIV4 08/10/2020 03:51:00 PM EDT completed .5 mL [facility] ([facility]) New in 2011. IIV4 08/10/2020 03:51:00 PM EDT completed .5 mL [facility] ([facility]) New in 2011. IIV4 08/10/2020 03:51:00 PM EDT completed .5 mL [facility] ([facility]) New in 2011. IIV4 08/10/2020 03:51:00 PM EDT completed .5 mL [facility] ([facility]) New in 2011. IIV4 08/10/2020 03:51:00 PM EDT completed .5 mL [facility] ([facility]) New in 2011. IIV4 08/10/2020 03:51:00 PM EDT completed .5 mL [facility] ([facility]) New in 2011. IIV4 08/10/2020 03:51:00 PM EDT completed .5 mL [facility] ([facility]) New in 2011. IIV4 08/10/2020 03:51:00 PM EDT completed .5 mL JE[facility] ([facility]) Medications Medication Brand Name Start Date Product Form Dose Route Admi nistrative Instructions Pharmacy Instructions Status Indications Reaction Description Data Source(s) 400 mg 08/07/2021 12:00:00 AM EDT capsule 90 TAKE ONE CAPSULE BY MOUTH THREE TIMES A DAY TAKE ONE CAPSULE BY MOUTH THREE TIMES A DAY SOLD: 08/07/2021 [facility] BLOOD SUGAR DIAGNOSTIC 07/25/2021 12:00:00 AM EDT strip 100 USE TO TEST THREE TIMES A DAY USE TO TEST THREE TIMES A DAY SOLD: 07/27/2021 [facility] 0.5 mg 07/25/2021 12:00:00 AM EDT tablet 20 TAKE ONE TABLET BY MOUTH TWICE A DAY NEEDED MAXIMUM DAILY DOSE = TWO TABLETS TAKE ONE TABLET BY MOUTH TWICE A DAY NEEDED MAXIMUM DAILY DOSE = TWO TABLETS SOLD: 07/25/2021 [facility] 30 mg 07/24/2021 12:00:00 AM EDT tablet 60 TAKE ONE TABLET BY MOUTH TWICE A DAY TAKE ONE TABLET BY MOUTH TWICE A DAY SOLD: 07/25/2021 [facility] 40 mg 07/21/2021 12:00:00 AM EDT tablet 60 TAKE ONE TABLET BY MOUTH TWICE A DAY TAKE ONE TABLET BY MOUTH TWICE A DAY SOLD: 07/23/2021 [facility] Fluticasone propionate 0.05 MG/ACTUAT Metered Dose [facility] 50 mcg/actuation FLUTICASONE PROPIONATE 07/21/2021 12:00:00 AM EDT spray,suspension 16 INSTILL ONE SPRAY IN EACH NOSTRIL ONCE DAILY INSTILL ONE SPRAY IN EACH NOSTRIL ONCE DAILY SOLD: 07/23/2021 [facility] 24 HR Metformin hydrochloride 500 MG Extended Release Oral T ablet METFORMIN HCL 07/21/2021 12:00:00 AM EDT tablet extended release 24 hr 120 TAKE TWO TABLETS BY MOUTH TWICE A DAY TAKE TWO TABLETS BY MOUTH TWICE A DAY SOLD: 07/23/2021 [facility] 800 mg 07/21/2021 12:00:00 AM EDT tablet 90 TAKE ONE TABLET BY MOUTH THREE TIMES A DAY NEEDED TAKE ONE TABLET BY MOUTH THREE TIMES A DAY NEEDED S OLD: 07/23/2021 [facility] Trazodone Hydrochloride 100 MG Oral Tablet TRAZODONE HCL 07/18/2021 12:00:00 AM EDT tablet 30 TAKE ONE TABLET BY MOUTH AT BEDTIME TAKE ONE TABLET BY MOUTH AT BEDTIME SOLD: 07/20/2021 [facility] ziprasidone 80 MG Oral Capsule ZIPRASIDONE HCL 07/18/2021 12:00: 00 AM EDT capsule 60 TAKE ONE CAPSULE BY MOUTH TWICE A DAY TAKE ONE CAPSULE BY MOUTH TWICE A DAY SOLD: 07/20/2021 [facility] 150 mg 07/05/2021 12:00:00 AM EDT tablet 30 TAKE ONE TABLET BY MOUTH EVERY DAY TAKE ONE TABLET BY MOUTH EVERY DAY SOLD: 07/05/2021 [facility] 400 mg 07/05/2021 12:00:00 AM EDT capsule 90 TAKE ONE CAPSULE BY MOUTH THREE TIMES A DAY TAKE ONE CAPSULE BY MOUTH THREE TIMES A DAY SOLD: 07/05/2021 [facility] 150 mg 07/05/2021 12:00:00 AM EDT tablet 30 TAKE ONE TABLET BY MOUTH EVERY DAY TAKE ONE TABLET BY MOUTH EVERY DAY SOLD: 07/31/2021 [facility] 0.5 mg 06/28/2021 12:00:00 AM EDT tablet 20 TAKE ONE TABLET BY MOUTH TWICE A DAY *ONLY* NEEDED MAX 2 TABLETS / DAY (20 TABLETS = 30 DAY SUPPLY) TAKE ONE TABLET BY MOUTH TWICE A DAY *ONLY* NEEDED MAX 2 TABLETS / DAY (20 TABLETS = 30 DAY SUPPLY) SOLD: 06/28/2021 [facility] ziprasidone 80 MG Oral Capsule ZIPRASIDONE HCL 06/21/2021 12:00: 00 AM EDT capsule 60 TAKE ONE CAPSULE BY MOUTH TWICE A DAY TAKE ONE CAPSULE BY MOUTH TWICE A DAY SOLD: 06/21/2021 [facility] Alcohol Prep Pads 06/20/2021 12:00:00 AM EDT completed Alcohol Prep Pads [place] ([facility]) ALCOHOL ANTISEPTIC PADS 06/20/2021 12:00:00 AM EDT pads, med icated 100 APPLY 1 PAD NEEDED BY TOPICAL ROUTE TO BE USE BEFORE INJECTING INSULIN AND TESTING BLOOD SUGAR APPLY 1 PAD NEEDED BY TOPICAL ROUTE T O BE USE BEFORE INJECTING INSULIN AND TESTING BLOOD SUGAR SOLD: 06/20/2021 [facility] 31 gauge x 5/16" 06/16/2021 12:00:00 AM EDT needle 100 USE ONCE DAILY USE ONCE DAILY SOLD: 06/18/2021 [facility] 30 mg 06/13/2021 12:00:00 AM EDT tablet 30 TAKE ONE TABLET BY MOUTH TWICE A DAY TAKE ONE TABLET BY MOUTH TWICE A DAY SOLD: 06/13/2021 [facility] 30 mg 06/13/2021 12:00:00 AM EDT tablet 30 TAKE ONE TABLET BY MOUTH TWICE A DAY TAKE ONE TABLET BY MOUTH TWICE A DAY SOLD: 06/27/2021 [facility] 30 mg 06/13/2021 12:00:00 AM EDT tablet 30 TAKE ONE TABLET BY MOUTH TWICE A DAY TAKE ONE TABLET BY MOUTH TWICE A DAY SOLD: 07/11/2021 [facility] 3 ML Insulin Glargine 100 UNT/ML Pen Injector [Basagla r] 100 unit/mL (3 mL) INSULIN GLARGINE,HUM.REC.ANLOG 06/13/2021 12:00:00 AM EDT insulin pen 15 INJECT 20 UNITS UNDER THE SKIN UNDER THE SKIN INJECT 20 UNITS UNDER THE SKIN UNDER THE SKIN SOLD: 06/13/2021 [facility] 100 mg 06/12/2021 12:00:00 AM EDT tablet 6 TAKE 1/2-1 TABLET BY MOUTH ONCE DAILY NEEDED MAXIMUM DAILY DOSE = 1 TAKE 1/2-1 TABLET BY MOUTH ONCE DAILY NEEDED MAXIMUM DAILY DOSE = 1 SOLD: 06/12/2021 [facility] 4 mg 06/12/2021 12:00:00 AM EDT lozenge 72 DISSOLVE 1 LOZENGE IN MOUTH EVERY 2 HOURS NEEDED DISSOLVE 1 LOZENGE IN MOUTH EVERY 2 HOURS NEEDED SO LD: 06/12/2021 [facility] buspirone hydrochloride 30 MG Oral Tablet buspirone 2020 12:00:00 AM EDT 30 mg by mouth completed <td ID="Medic ationRxNorm_4">650283</td><td ID="MedicationMedication_4">buspirone</td><td ID="MedicationRoute_4">by mouth</td><td ID="MedicationRouteConcept_4">W75258</td><td ID="MedicationStartDate_4">06/07/2021</td><td ID="MedicationStopDate_4">08/06/2021</td><td ID="MedicationDosageFrequency_4">twice a day</td><td ID="MedicationDuration_4">30</td><td ID="MedicationFormulaStrength_4">30 mg</td><td ID="MedicationDosageForm_4">tablet</td><td ID="MedicationDosageFormCode_4"></td><td ID="MedicationDosageDescription_4"></td><td ID="MedicationMedicationId_4">[id number]</td><td ID="MedicationAccount_4">[id number]</td><td ID="MedicationNpid_4">[id number]</td><td ID="MedicationAuthorFirstName_4">Susanne</td><td ID="MedicationAuthorLastName_4">Irvin</td><td ID="MedicationTaxonomyCode_4">[id number]</td><td ID="MedicationTaxonomyDesc_4">Nurse Practitioner</td><td ID="MedicationPhoneNumber_4">[phone]</td> [facility] ([facility]) buspirone hydrochloride 30 MG Oral Tablet buspirone 2020 12:00:00 AM EDT 30 mg by mouth completed <td ID="Medic ationRxNorm_6">255612</td><td ID="MedicationMedication_6">buspirone</td><td ID="MedicationRoute_6">by mouth</td><td ID="MedicationRouteConcept_6">[id number]</td><td ID="MedicationStartDate_6">06/07/2021</td><td ID="MedicationStopDate_6">08/06/2021</td><td ID="MedicationDosageFrequency_6">twice a day</td><td ID="MedicationDuration_6">30</td><td ID="MedicationFormulaStrength_6">30 mg</td><td ID="MedicationDosageForm_6">tablet</td><td ID="MedicationDosageFormCode_6"></td><td ID="MedicationDosageDescription_6"></td><td ID="MedicationMedicationId_6">[id number]</td><td ID="MedicationAccount_6">[id number]</td><td ID="MedicationNpid_6">[id number]</td><td ID="MedicationAuthorFirstName_6">Susanne</td><td ID="MedicationAuthorLastName_6">Irvin</td><td ID="MedicationTaxonomyCode_6">[id number]</td><td ID="MedicationTaxonomyDesc_6">Nurse Practitioner</td><td ID="MedicationPhoneNumber_6">[phone]</td> [facility] ([facility]) 400 mg 06/05/2021 12:00:00 AM EDT capsule 90 TAKE ONE CAPSULE BY MOUTH THREE TIMES A DAY TAKE ONE CAPSULE BY MOUTH THREE TIMES A DAY SOLD: 06/05/2021 [facility] 800 mg 05/30/2021 12:00:00 AM EDT tablet 90 TAKE ONE TABLET BY MOUTH THREE TIMES A DAY NEEDED MAXIMUM DAILY DOSE = THREE TABLETS TAKE ONE TABLET BY MOUTH THREE TIMES A DAY NEEDED MAXIMUM DAILY DOSE = THREE TABLETS SOLD: 05/30/2021 [facility] 0.5 mg 05/30/2021 12:00:00 AM EDT tablet 20 TAKE ONE TABLET BY MOUTH TWICE A DAY NEEDED , TAKE ONLY NEEDED , MAXIMUM DAILY DOSE = 2 TABLETS ( 30 DAY SUPPLY) TAKE ONE TABLET BY MOUTH TWICE A DAY NEEDED , TAKE ONLY NEEDED , MAXIMUM DAILY DOSE = 2 TABLETS ( 30 DAY SUPPLY) SOLD: 05/30/2021 [facility] Clonazepam 0.5 MG Oral Tablet clonazepam 05/30/2021 12:00:00 AM EDT 0.5 mg completed <td ID="Medicat ionRxNorm_3">[id number]</td><td ID="MedicationMedication_3">clonazepam</td><td ID="MedicationRoute_3"></td><td ID="MedicationRouteConcept_3"></td><td ID="MedicationStartDate_3">05/30/2021</td><td ID="MedicationStopDate_3">06/29/2021</td><td ID="MedicationDosageFrequency_3"></td><td ID="MedicationDuration_3">30</td><td ID="MedicationFormulaStrength_3">0.5 mg</td><td ID="MedicationDosageForm_3">tablet</td><td ID="MedicationDosageFormCode_3"></td><td ID="MedicationDosageDescription_3"></td><td ID="MedicationMedicationId_3">[id number]</td><td ID="MedicationAccount_3">[id number]</td><td ID="MedicationNpid_3">[id number]</td><td ID="MedicationAuthorFirstName_3">Russell</td><td ID="MedicationAuthorLastName_3">[place]</td><td ID="MedicationTaxonomyCode_3">[id number]</td><td ID="MedicationTaxonomyDesc_3">Nurse Practitioner</td><td ID="MedicationPhoneNumber_3">[phone]</td> [facility] 800 mg 05/30/2021 12:00:00 AM EDT tablet 90 TAKE ONE TABLET BY MOUTH THREE TIMES A DAY NEEDED MAXIMUM DAILY DOSE = THREE TABLETS TAKE ONE TABLET BY MOUTH THREE TIMES A DAY NEEDED MAXIMUM DAILY DOSE = THREE TABLETS SOLD: 06/25/2021 [facility] 24 HR Metformin hydrochloride 500 MG Extended Release Oral T ablet METFORMIN HCL 05/15/2021 12:00:00 AM EDT tablet extended release 24 hr 60 TAKE TWO TABLETS BY MOUTH TWICE A DAY TAKE TWO TABLETS BY MOUTH TWICE A DAY SOLD: 05/30/2021 [facility] 24 HR Metformin hydrochloride 500 MG Extended Release Oral T ablet METFORMIN HCL 05/15/2021 12:00:00 AM EDT tablet extended release 24 hr 60 TAKE TWO TABLETS BY MOUTH TWICE A DAY TAKE TWO TABLETS BY MOUTH TWICE A DAY SOLD: 07/05/2021 [facility] 24 HR Metformin hydrochloride 500 MG Extended Release Oral T ablet METFORMIN HCL 05/15/2021 12:00:00 AM EDT tablet extended release 24 hr 60 TAKE TWO TABLETS BY MOUTH TWICE A DAY TAKE TWO TABLETS BY MOUTH TWICE A DAY SOLD: 05/17/2021 [facility] 24 HR Metformin hydrochloride 500 MG Extended Release Oral T ablet METFORMIN HCL 05/15/2021 12:00:00 AM EDT tablet extended release 24 hr 60 TAKE TWO TABLETS BY MOUTH TWICE A DAY TAKE TWO TABLETS BY MOUTH TWICE A DAY SOLD: 06/18/2021 [facility] 30 mg 05/13/2021 12:00:00 AM EDT tablet 30 TAKE ONE TABLET BY MOUTH THREE TIMES A DAY TAKE ONE TABLET BY MOUTH THREE TIMES A DAY SOLD: 06/04/2021 [facility] 30 mg 05/13/2021 12:00:00 AM EDT tablet 30 TAKE ONE TABLET BY MOUTH THREE TIMES A DAY TAKE ONE TABLET BY MOUTH THREE TIMES A DAY SOLD: 05/24/2021 [facility] 30 mg 05/13/2021 12:00:00 AM EDT tablet 30 TAKE ONE TABLET BY MOUTH THREE TIMES A DAY TAKE ONE TABLET BY MOUTH THREE TIMES A DAY SOLD: 05/13/2021 [facility] 0.3 % 05/02/2021 12:00:00 AM EDT drops 10 INSTILL 10 DROPS INTO AFFECTED EAR(S) EVERY DAY INSTILL 10 DROPS INTO AFFECTED EAR(S) EVERY DAY SOLD: 05/02/2021 [facility] 40 mg 05/02/2021 12:00:00 AM EDT tablet 60 TAKE ONE TABLET BY MOUTH TWO TIMES A DAY TAKE ONE TABLET BY MOUTH TWO TIMES A DAY SOLD: 05/30/2021 [facility] 150 mg 05/02/2021 12:00:00 AM EDT tablet 30 TAKE ONE TABLET BY MOUTH ONCE DAILY TAKE ONE TABLET BY MOUTH ONCE DAILY SOLD: 05/02/2021 [facility] 40 mg 05/02/2021 12:00:00 AM EDT tablet 60 TAKE ONE TABLET BY MOUTH TWO TIMES A DAY TAKE ONE TABLET BY MOUTH TWO TIMES A DAY SOLD: 06/25/2021 [facility] 150 mg 05/02/2021 12:00:00 AM EDT tablet 30 TAKE ONE TABLET BY MOUTH ONCE DAILY TAKE ONE TABLET BY MOUTH ONCE DAILY SOLD: 06/04/2021 [facility] 40 mg 05/02/2021 12:00:00 AM EDT tablet 60 TAKE ONE TABLET BY MOUTH TWO TIMES A DAY TAKE ONE TABLET BY MOUTH TWO TIMES A DAY SOLD: 05/02/2021 [facility] 15 mg 04/26/2021 12:00:00 AM EDT tablet 30 TAKE ONE TABLET BY MOUTH EVERY DAY TAKE ONE TABLET BY MOUTH EVERY DAY SOLD: 06/19/2021 [facility] 20 mg 04/26/2021 12:00:00 AM EDT tablet 30 TAKE ONE TABLET BY MOUTH EVERY DAY TAKE ONE TABLET BY MOUTH EVERY DAY SOLD: 05/25/2021 [facility] 15 mg 04/26/2021 12:00:00 AM EDT tablet 30 TAKE ONE TABLET BY MOUTH EVERY DAY TAKE ONE TABLET BY MOUTH EVERY DAY SOLD: 05/25/2021 [facility] 20 mg 04/26/2021 12:00:00 AM EDT tablet 30 TAKE ONE TABLET BY MOUTH EVERY DAY TAKE ONE TABLET BY MOUTH EVERY DAY SOLD: 04/26/2021 [facility] 20 mg 04/26/2021 12:00:00 AM EDT tablet 30 TAKE ONE TABLET BY MOUTH EVERY DAY TAKE ONE TABLET BY MOUTH EVERY DAY SOLD: 06/19/2021 [facility] Fenofibrate 134 MG Oral Capsule FENOFIBRATE,MICRONIZED 04/26 12:00:00 AM EDT capsule 30 TAKE ONE CAPSULE BY MOUTH EV NAI DAY TAKE ONE CAPSULE BY MOUTH EVERY DAY SOLD: 07/20/2021 [facility] 15 mg 04/26/2021 12:00:00 AM EDT tablet 30 TAKE ONE TABLET BY MOUTH EVERY DAY TAKE ONE TABLET BY MOUTH EVERY DAY SOLD: 07/20/2021 [facility] BLOOD SUGAR DIAGNOSTIC 04/26/2021 12:00:00 AM EDT strip 100 USE UP TO TWO TIMES A DAY DIRECTED USE UP TO TWO TIMES A DAY DIRECTED SOLD: 04/26/2021 [facility] 20 mg 04/26/2021 12:00:00 AM EDT tablet 30 TAKE ONE TABLET BY MOUTH EVERY DAY TAKE ONE TABLET BY MOUTH EVERY DAY SOLD: 07/30/2021 [facility] Fenofibrate 134 MG Oral Capsule FENOFIBRATE,MICRONIZED 04/26 12:00:00 AM EDT capsule 30 TAKE ONE CAPSULE BY MOUTH EV NAI DAY TAKE ONE CAPSULE BY MOUTH EVERY DAY SOLD: 04/26/2021 [facility] Fenofibrate 134 MG Oral Capsule FENOFIBRATE,MICRONIZED 04/26 12:00:00 AM EDT capsule 30 TAKE ONE CAPSULE BY MOUTH EV NAI DAY TAKE ONE CAPSULE BY MOUTH EVERY DAY SOLD: 05/25/2021 [facility] Fenofibrate 134 MG Oral Capsule FENOFIBRATE,MICRONIZED 04/26 12:00:00 AM EDT capsule 30 TAKE ONE CAPSULE BY MOUTH EV NAI DAY TAKE ONE CAPSULE BY MOUTH EVERY DAY SOLD: 06/19/2021 [facility] 15 mg 04/26/2021 12:00:00 AM EDT tablet 30 TAKE ONE TABLET BY MOUTH EVERY DAY TAKE ONE TABLET BY MOUTH EVERY DAY SOLD: 04/26/2021 [facility] ziprasidone 80 MG Oral Capsule ZIPRASIDONE HCL 04/20/2021 12:00: 00 AM EDT capsule 60 TAKE ONE CAPSULE BY MOUTH TWO TI MES A DAY TAKE ONE CAPSULE BY MOUTH TWO TIMES A DAY SOLD: 05/27/2021 [facility] ziprasidone 80 MG Oral Capsule ZIPRASIDONE HCL 04/20/2021 12:00: 00 AM EDT capsule 60 TAKE ONE CAPSULE BY MOUTH TWO TI MES A DAY TAKE ONE CAPSULE BY MOUTH TWO TIMES A DAY SOLD: 04/23/2021 [facility] 24 HR Metformin hydrochloride 500 MG Extended Release Oral T ablet METFORMIN HCL 04/10/2021 12:00:00 AM EDT tablet extended release 24 hr 120 TAKE TWO TABLETS BY MOUTH TWICE A DAY TAKE TWO TABLETS BY MOUTH TWICE A DAY SOLD: 04/10/2021 [facility] 30 mg 04/10/2021 12:00:00 AM EDT tablet 60 TAKE ONE TABLET BY MOUTH THREE TIMES A DAY TAKE ONE TABLET BY MOUTH THREE TIMES A DAY SOLD: 04/24/2021 [facility] buspirone hydrochloride 30 MG Oral Tablet buspirone 2020 12:00:00 AM EDT 30 mg by mouth completed <td ID="Medic ationRxNorm_5">[id number]</td><td ID="MedicationMedication_5">buspirone</td><td ID="MedicationRoute_5">by mouth</td><td ID="MedicationRouteConcept_5">[id number]</td><td ID="MedicationStartDate_5">04/10/2021</td><td ID="MedicationStopDate_5">05/10/2021</td><td ID="MedicationDosageFrequency_5">twice a day</td><td ID="MedicationDuration_5">30</td><td ID="MedicationFormulaStrength_5">30 mg</td><td ID="MedicationDosageForm_5">tablet</td><td ID="MedicationDosageFormCode_5"></td><td ID="MedicationDosageDescription_5"></td><td ID="MedicationMedicationId_5">[id number]</td><td ID="MedicationAccount_5">[id number]</td><td ID="MedicationNpid_5">[id number]</td><td ID="MedicationAuthorFirstName_5">Adrienne</td><td ID="MedicationAuthorLastName_5">Ricky</td><td ID="MedicationTaxonomyCode_5">[id number]</td><td ID="MedicationTaxonomyDesc_5">Psychiatric/Mental Health</td><td ID="MedicationPhoneNumber_5">[phone]</td> [facility] ([facility]) 30 mg 04/10/2021 12:00:00 AM EDT tablet 30 TAKE ONE TABLET BY MOUTH THREE TIMES A DAY TAKE ONE TABLET BY MOUTH THREE TIMES A DAY SOLD: 04/10/2021 [facility] 40 mg 04/06/2021 12:00:00 AM EDT tablet 60 TAKE ONE TABLET BY MOUTH TWICE A DAY TAKE ONE TABLET BY MOUTH TWICE A DAY SOLD: 04/06/2021 [facility] 40 mg 04/02/2021 12:00:00 AM EDT capsule,delayed release (DR/EC) 30 TAKE ONE CAPSULE BY MOUTH EVERY MORNING ON AN EMPTY STOMACH, AT LEAST 30 MINUTES BEFORE BREAKFAST TAKE ONE CAPSULE BY MOUTH EVERY MORNING ON AN EMPTY STOMACH, AT LEAST 30 MINUTES BEFORE BREAKFAST SOLD: 04/02/2021 [facility] 40 mg 04/02/2021 12:00:00 AM EDT capsule,delayed release (DR/EC) 30 TAKE ONE CAPSULE BY MOUTH EVERY MORNING ON AN EMPTY STOMACH, AT LEAST 30 MINUTES BEFORE BREAKFAST TAKE ONE CAPSULE BY MOUTH EVERY MORNING ON AN EMPTY STOMACH, AT LEAST 30 MINUTES BEFORE BREAKFAST SOLD: 04/30/2021 [facility] 800 mg 04/02/2021 12:00:00 AM EDT tablet 90 TAKE ONE TABLET BY MOUTH THREE TIMES A DAY NEEDED TAKE ONE TABLET BY MOUTH THREE TIMES A DAY NEEDED S OLD: 04/02/2021 [facility] 40 mg 04/02/2021 12:00:00 AM EDT capsule,delayed release (DR/EC) 30 TAKE ONE CAPSULE BY MOUTH EVERY MORNING ON AN EMPTY STOMACH, AT LEAST 30 MINUTES BEFORE BREAKFAST TAKE ONE CAPSULE BY MOUTH EVERY MORNING ON AN EMPTY STOMACH, AT LEAST 30 MINUTES BEFORE BREAKFAST SOLD: 05/27/2021 [facility] 40 mg 04/02/2021 12:00:00 AM EDT capsule,delayed release (DR/EC) 30 TAKE ONE CAPSULE BY MOUTH EVERY MORNING ON AN EMPTY STOMACH, AT LEAST 30 MINUTES BEFORE BREAKFAST TAKE ONE CAPSULE BY MOUTH EVERY MORNING ON AN EMPTY STOMACH, AT LEAST 30 MINUTES BEFORE BREAKFAST SOLD: 06/21/2021 [facility] 40 mg 04/02/2021 12:00:00 AM EDT capsule,delayed release (DR/EC) 30 TAKE ONE CAPSULE BY MOUTH EVERY MORNING ON AN EMPTY STOMACH, AT LEAST 30 MINUTES BEFORE BREAKFAST TAKE ONE CAPSULE BY MOUTH EVERY MORNING ON AN EMPTY STOMACH, AT LEAST 30 MINUTES BEFORE BREAKFAST SOLD: 07/20/2021 [facility] 15 mg 03/28/2021 12:00:00 AM EDT tablet 30 TAKE ONE TABLET BY MOUTH EVERY DAY TAKE ONE TABLET BY MOUTH EVERY DAY SOLD: 03/29/2021 [facility] Trazodone Hydrochloride 100 MG Oral Tablet TRAZODONE HCL 03/23/2021 12:00:00 AM EDT tablet 30 TAKE ONE TABLET BY MOUTH AT BEDTIME TAKE ONE TABLET BY MOUTH AT BEDTIME SOLD: 04/29/2021 [facility] Trazodone Hydrochloride 100 MG Oral Tablet TRAZODONE HCL 03/23/2021 12:00:00 AM EDT tablet 30 TAKE ONE TABLET BY MOUTH AT BEDTIME TAKE ONE TABLET BY MOUTH AT BEDTIME SOLD: 03/23/2021 [facility] Fenofibrate 134 MG Oral Capsule FENOFIBRATE,MICRONIZED 03/23 12:00:00 AM EDT capsule 30 TAKE ONE CAPSULE BY MOUTH DA GISSELLE TAKE ONE CAPSULE BY MOUTH DAILY SOLD: 03/23/2021 [facility] 20 mg 03/23/2021 12:00:00 AM EDT tablet 30 TAKE ONE TABLET BY MOUTH EVERY DAY TAKE ONE TABLET BY MOUTH EVERY DAY SOLD: 03/23/2021 [facility] Trazodone Hydrochloride 100 MG Oral Tablet trazodone 03/22 12:00:00 AM EDT 100 mg completed <td ID="Medica tionRxNorm_5">[id number]</td><td ID="MedicationMedication_5">trazodone</td><td ID="MedicationRoute_5"></td><td ID="MedicationRouteConcept_5"></td><td ID="MedicationStartDate_5">03/22/2021</td><td ID="MedicationStopDate_5"></td><td ID="MedicationDosageFrequency_5">at bedtime</td><td ID="MedicationDuration_5"></td><td ID="MedicationFormulaStrength_5">100 mg</td><td ID="MedicationDosageForm_5">tablet</td><td ID="MedicationDosageFormCode_5"></td><td ID="MedicationDosageDescription_5"></td><td ID="MedicationMedicationId_5">[id number]</td><td ID="MedicationAccount_5">[id number]</td><td ID="MedicationNpid_5">[id number]</td><td ID="MedicationAuthorFirstName_5">Adrienne</td><td ID="MedicationAuthorLastName_5">Ricky</td><td ID="MedicationTaxonomyCode_5">[id number]</td><td ID="MedicationTaxonomyDesc_5">Psychiatric/Mental Health</td><td ID="MedicationPhoneNumber_5">[phone]</td> [facility] Trazodone Hydrochloride 100 MG Oral Tablet trazodone 03/22 12:00:00 AM EDT 100 mg completed <td ID="Medica tionRxNorm_4">[id number]</td><td ID="MedicationMedication_4">trazodone</td><td ID="MedicationRoute_4"></td><td ID="MedicationRouteConcept_4"></td><td ID="MedicationStartDate_4">03/22/2021</td><td ID="MedicationStopDate_4"></td><td ID="MedicationDosageFrequency_4">at bedtime</td><td ID="MedicationDuration_4"></td><td ID="MedicationFormulaStrength_4">100 mg</td><td ID="MedicationDosageForm_4">tablet</td><td ID="MedicationDosageFormCode_4"></td><td ID="MedicationDosageDescription_4"></td><td ID="MedicationMedicationId_4">[id number]</td><td ID="MedicationAccount_4">[id number]</td><td ID="MedicationNpid_4">[id number]</td><td ID="MedicationAuthorFirstName_4">Adrienne</td><td ID="MedicationAuthorLastName_4">[place]</td><td ID="MedicationTaxonomyCode_4">[id number]</td><td ID="MedicationTaxonomyDesc_4">Psychiatric/Mental Health</td><td ID="MedicationPhoneNumber_4">[phone]</td> [facility] ([facility]) Trazodone Hydrochloride 100 MG Oral Tablet trazodone 03/22 12:00:00 AM EDT 100 mg completed <td ID="Medica tionRxNorm_2">836439</td><td ID="MedicationMedication_2">trazodone</td><td ID="MedicationRoute_2"></td><td ID="MedicationRouteConcept_2"></td><td ID="MedicationStartDate_2">03/22/2021</td><td ID="MedicationStopDate_2"></td><td ID="MedicationDosageFrequency_2">at bedtime</td><td ID="MedicationDuration_2"></td><td ID="MedicationFormulaStrength_2">100 mg</td><td ID="MedicationDosageForm_2">tablet</td><td ID="MedicationDosageFormCode_2"></td><td ID="MedicationDosageDescription_2"></td><td ID="MedicationMedicationId_2">[id number]</td><td ID="MedicationAccount_2">[id number]</td><td ID="MedicationNpid_2">[id number]</td><td ID="MedicationAuthorFirstName_2">Adrienne</td><td ID="MedicationAuthorLastName_2">Ricky</td><td ID="MedicationTaxonomyCode_2">[id number]</td><td ID="MedicationTaxonomyDesc_2">Psychiatric/Mental Health</td><td ID="MedicationPhoneNumber_2">[phone]</td> [facility] ([facility]) 800 mg 03/06/2021 12:00:00 AM EDT tablet 90 TAKE ONE TABLET BY MOUTH THREE TIMES A DAY NEEDED TAKE ONE TABLET BY MOUTH THREE TIMES A DAY NEEDED S OLD: 05/03/2021 [facility] 800 mg 03/06/2021 12:00:00 AM EDT tablet 90 TAKE ONE TABLET BY MOUTH THREE TIMES A DAY NEEDED TAKE ONE TABLET BY MOUTH THREE TIMES A DAY NEEDED S OLD: 03/07/2021 [facility] Cephalexin 500 MG Oral Capsule CEPHALEXIN 03/02/2021 12:00:00 AM EDT capsule 20 TAKE ONE CAPSULE BY MOUTH TWICE A DAY FOR 10 DAYS TAKE ONE CAPSULE BY MOUTH TWICE A DAY FOR 10 DAYS SOLD: 03/02/2021 [facility] 31 gauge x 5/16" 02/28/2021 12:00:00 AM EDT needle 100 USE ONCE DAILY USE ONCE DAILY SOLD: 02/28/2021 [facility] 400 mg 02/28/2021 12:00:00 AM EDT capsule 90 TAKE ONE CAPSULE BY MOUTH THREE TIMES A DAY TAKE ONE CAPSULE BY MOUTH THREE TIMES A DAY SOLD: 03/29/2021 [facility] 400 mg 02/28/2021 12:00:00 AM EDT capsule 90 TAKE ONE CAPSULE BY MOUTH THREE TIMES A DAY TAKE ONE CAPSULE BY MOUTH THREE TIMES A DAY SOLD: 02/28/2021 [facility] 0.5 mg 02/28/2021 12:00:00 AM EDT tablet 6 TAKE ONE TABLET BY MOUTH NEEDED FOR 3 DAYS, THEN ONE-HALF TABLET UNTIL FINISHED MAXIMUM DAILY DOSE = ONE TABLET TAKE ONE TABLET BY MOUTH NEEDED FOR 3 DAYS, THEN ONE-HALF TABLET UNTIL FINISHED MAXIMUM DAILY DOSE = ONE TABLET SOLD: 02/28/2021 [facility] 30 mg 02/24/2021 12:00:00 AM EDT tablet 60 TAKE ONE TABLET BY MOUTH TWICE A DAY TAKE ONE TABLET BY MOUTH TWICE A DAY SOLD: 02/28/2021 [facility] 30 mg 02/24/2021 12:00:00 AM EDT tablet 60 TAKE ONE TABLET BY MOUTH TWICE A DAY TAKE ONE TABLET BY MOUTH TWICE A DAY SOLD: 03/23/2021 [facility] lamotrigine 150 MG Oral Tablet lamotrigine 02/22/2021 12:00:00 AM EDT 150 mg by mouth completed <td ID="Medica tionRxNorm_4">668616</td><td ID="MedicationMedication_4">lamotrigine</td><td ID="MedicationRoute_4">by mouth</td><td ID="MedicationRouteConcept_4">P73650</td><td ID="MedicationStartDate_4">02/22/2021</td><td ID="MedicationStopDate_4"></td><td ID="MedicationDosageFrequency_4">once a day</td><td ID="MedicationDuration_4"></td><td ID="MedicationFormulaStrength_4">150 mg</td><td ID="MedicationDosageForm_4">tablet</td><td ID="MedicationDosageFormCode_4"></td><td ID="MedicationDosageDescription_4"></td><td ID="MedicationMedicationId_4">[id number]</td><td ID="MedicationAccount_4">[id number]</td><td ID="MedicationNpid_4">[id number]</td><td ID="MedicationAuthorFirstName_4">Adrienne</td><td ID="MedicationAuthorLastName_4">Ricky</td><td ID="MedicationTaxonomyCode_4">[id number]</td><td ID="MedicationTaxonomyDesc_4">Psychiatric/Mental Health</td><td ID="MedicationPhoneNumber_4">[phone]</td> [facility] ([facility]) ziprasidone 80 MG Oral Capsule ZIPRASIDONE HCL 02/22/2021 12:00: 00 AM EDT capsule 60 TAKE ONE CAPSULE BY MOUTH TWICE A DAY TAKE ONE CAPSULE BY MOUTH TWICE A DAY SOLD: 03/23/2021 [facility] 25 mcg 02/22/2021 12:00:00 AM EDT tablet 30 TAKE ONE TABLET BY MOUTH EVERY DAY TAKE ONE TABLET BY MOUTH EVERY DAY SOLD: 02/22/2021 [facility] ziprasidone 80 MG Oral Capsule ZIPRASIDONE HCL 02/22/2021 12:00: 00 AM EDT capsule 60 TAKE ONE CAPSULE BY MOUTH TWICE A DAY TAKE ONE CAPSULE BY MOUTH TWICE A DAY SOLD: 02/22/2021 [facility] 25 mcg 02/22/2021 12:00:00 AM EDT tablet 30 TAKE ONE TABLET BY MOUTH EVERY DAY TAKE ONE TABLET BY MOUTH EVERY DAY SOLD: 03/29/2021 [facility] buspirone hydrochloride 30 MG Oral Tablet buspirone 2020 12:00:00 AM EDT 30 mg by mouth completed <td ID="Medic ationRxNorm_3">863859</td><td ID="MedicationMedication_3">buspirone</td><td ID="MedicationRoute_3">by mouth</td><td ID="MedicationRouteConcept_3">N70395</td><td ID="MedicationStartDate_3">02/22/2021</td><td ID="MedicationStopDate_3"></td><td ID="MedicationDosageFrequency_3">three times a day</td><td ID="MedicationDuration_3"></td><td ID="MedicationFormulaStrength_3">30 mg</td><td ID="MedicationDosageForm_3">tablet</td><td ID="MedicationDosageFormCode_3"></td><td ID="MedicationDosageDescription_3"></td><td ID="MedicationMedicationId_3">[id number]</td><td ID="MedicationAccount_3">[id number]</td><td ID="MedicationNpid_3">[id number]</td><td ID="MedicationAuthorFirstName_3">Adrienne</td><td ID="MedicationAuthorLastName_3">[place]</td><td ID="MedicationTaxonomyCode_3">[id number]</td><td ID="MedicationTaxonomyDesc_3">Psychiatric/Mental Health</td><td ID="MedicationPhoneNumber_3">[phone]</td> [facility] ([facility] 150 mg 02/22/2021 12:00:00 AM EDT tablet 30 TAKE ONE TABLET BY MOUTH EVERY DAY TAKE ONE TABLET BY MOUTH EVERY DAY SOLD: 02/22/2021 [facility] lamotrigine 150 MG Oral Tablet lamotrigine 02/22/2021 12:00:00 AM EDT 150 mg by mouth completed <td ID="Medica tionRxNorm_3">691462</td><td ID="MedicationMedication_3">lamotrigine</td><td ID="MedicationRoute_3">by mouth</td><td ID="MedicationRouteConcept_3">F35247</td><td ID="MedicationStartDate_3">02/22/2021</td><td ID="MedicationStopDate_3"></td><td ID="MedicationDosageFrequency_3">once a day</td><td ID="MedicationDuration_3"></td><td ID="MedicationFormulaStrength_3">150 mg</td><td ID="MedicationDosageForm_3">tablet</td><td ID="MedicationDosageFormCode_3"></td><td ID="MedicationDosageDescription_3"></td><td ID="MedicationMedicationId_3">[id number]</td><td ID="MedicationAccount_3">[id number]</td><td ID="MedicationNpid_3">[id number]</td><td ID="MedicationAuthorFirstName_3">Adrienne</td><td ID="MedicationAuthorLastName_3">Ricky</td><td ID="MedicationTaxonomyCode_3">[id number]</td><td ID="MedicationTaxonomyDesc_3">Psychiatric/Mental Health</td><td ID="MedicationPhoneNumber_3">[phone]</td> [facility] ([facility]) 25 mcg 02/22/2021 12:00:00 AM EDT tablet 30 TAKE ONE TABLET BY MOUTH EVERY DAY TAKE ONE TABLET BY MOUTH EVERY DAY SOLD: 07/20/2021 [facility] 50 mg 02/22/2021 12:00:00 AM EDT tablet 30 TAKE ONE TABLET BY MOUTH EVERY DAY AT BEDTIME TAKE ONE TABLET BY MOUTH EVERY DAY AT BEDTIME SOLD: 02/22/2021 [facility] 150 mg 02/22/2021 12:00:00 AM EDT tablet 30 TAKE ONE TABLET BY MOUTH EVERY DAY TAKE ONE TABLET BY MOUTH EVERY DAY SOLD: 04/06/2021 [facility] lamotrigine 150 MG Oral Tablet lamotrigine 02/22/2021 12:00:00 AM EDT 150 mg by mouth completed <td ID="Medica tionRxNorm_5">139105</td><td ID="MedicationMedication_5">lamotrigine</td><td ID="MedicationRoute_5">by mouth</td><td ID="MedicationRouteConcept_5">D08749</td><td ID="MedicationStartDate_5">02/22/2021</td><td ID="MedicationStopDate_5">08/06/2021</td><td ID="MedicationDosageFrequency_5">once a day</td><td ID="MedicationDuration_5">30</td><td ID="MedicationFormulaStrength_5">150 mg</td><td ID="MedicationDosageForm_5">tablet</td><td ID="MedicationDosageFormCode_5"></td><td ID="MedicationDosageDescription_5"></td><td ID="MedicationMedicationId_5">[id number]</td><td ID="MedicationAccount_5">[id number]</td><td ID="MedicationNpid_5">[id number]</td><td ID="MedicationAuthorFirstName_5">Susanne</td><td ID="MedicationAuthorLastName_5">[place]</td><td ID="MedicationTaxonomyCode_5">[id number]</td><td ID="MedicationTaxonomyDesc_5">Nurse Practitioner</td><td ID="MedicationPhoneNumber_5">[phone]</td> [facility] ([facility]) Clonazepam 0.5 MG Oral Tablet clonazepam 02/22/2021 12:00:00 AM EDT 0.5 mg by mouth completed <td ID="Medica tionRxNorm_2">299435</td><td ID="MedicationMedication_2">clonazepam</td><td ID="MedicationRoute_2">by mouth</td><td ID="MedicationRouteConcept_2">C02579</td><td ID="MedicationStartDate_2">02/22/2021</td><td ID="MedicationStopDate_2"></td><td ID="MedicationDosageFrequency_2"></td><td ID="MedicationDuration_2"></td><td ID="MedicationFormulaStrength_2">0.5 mg</td><td ID="MedicationDosageForm_2">tablet</td><td ID="MedicationDosageFormCode_2"></td><td ID="MedicationDosageDescription_2">as needed</td><td ID="MedicationMedicationId_2">[id number]</td><td ID="MedicationAccount_2">[id number]</td><td ID="MedicationNpid_2">[id number]</td><td ID="MedicationAuthorFirstName_2">Adrienne</td><td ID="MedicationAuthorLastName_2">Ricky</td><td ID="MedicationTaxonomyCode_2">[id number]</td><td ID="MedicationTaxonomyDesc_2">Psychiatric/Mental Health</td><td ID="MedicationPhoneNumber_2">[phone]</td> [facility] ([facility]) 25 mcg 02/22/2021 12:00:00 AM EDT tablet 30 TAKE ONE TABLET BY MOUTH EVERY DAY TAKE ONE TABLET BY MOUTH EVERY DAY SOLD: 04/29/2021 [facility] 25 mcg 02/22/2021 12:00:00 AM EDT tablet 30 TAKE ONE TABLET BY MOUTH EVERY DAY TAKE ONE TABLET BY MOUTH EVERY DAY SOLD: 05/25/2021 [facility] 25 mcg 02/22/2021 12:00:00 AM EDT tablet 30 TAKE ONE TABLET BY MOUTH EVERY DAY TAKE ONE TABLET BY MOUTH EVERY DAY SOLD: 06/20/2021 [facility] 0.5 mg 02/21/2021 12:00:00 AM EDT tablet 7 TAKE ONE TABLET BY MOUTH EVERY DAY NEEDED FOR ANXIETY MAXIMUM DAILY DOSE = 1 TABLET TAKE ONE TABLET BY MOUTH EVERY DAY NEEDED FOR ANXIETY MAXIMUM DAILY DOSE = 1 TABLET SOLD: 02/22/2021 [facility] 0.5 mg 02/15/2021 12:00:00 AM EDT tablet,disintegrating 7 PLACE ONE TABLET UNDER THE TONGUE EVERY DAY NEEDED FOR ANXIETY, MAXIMUM DAILY DOSE = 1 PLACE ONE TABLET UNDER THE TONGUE EVERY DAY NEEDED FOR ANXIETY, MAXIMUM DAILY DOSE = 1 SOLD: 02/15/2021 [facility] 0.5 mg 02/05/2021 12:00:00 AM EDT tablet 5 TAKE ONE TABLET BY MOUTH EVERY DAY NEEDED, MAXIMUM DAILY DOSE = ONE TABLET TAKE ONE TABLET BY MOUTH EVERY DAY NEEDED, MAXIMUM DAILY DOSE = ONE TABLET SOLD: 02/05/2021 [facility] 0.5 mg 02/01/2021 12:00:00 AM EDT tablet 5 TAKE ONE TABLET BY MOUTH EVERY DAY NEEDED MAXIMUM DAILY DOSE = ONE TABLET TAKE ONE TABLET BY MOUTH EVERY DAY NEEDED MAXIMUM DAILY DOSE = ONE TABLET SOLD: 02/01/2021 [facility] 500 mg 01/26/2021 12:00:00 AM EDT tablet extended release 24 hr 120 TAKE TWO TABLETS BY MOUTH TWICE A DAY TAKE TWO TABLETS BY MOUTH TWICE A DAY SOLD: 03/15/2021 [facility] 500 mg 01/26/2021 12:00:00 AM EDT tablet extended release 24 hr 120 TAKE TWO TABLETS BY MOUTH TWICE A DAY TAKE TWO TABLETS BY MOUTH TWICE A DAY SOLD: 01/27/2021 [facility] 800 mg 01/08/2021 12:00:00 AM EDT tablet 90 TAKE ONE TABLET BY MOUTH THREE TIMES A DAY NEEDED TAKE ONE TABLET BY MOUTH THREE TIMES A DAY NEEDED S OLD: 02/08/2021 [facility] 800 mg 01/08/2021 12:00:00 AM EDT tablet 90 TAKE ONE TABLET BY MOUTH THREE TIMES A DAY NEEDED TAKE ONE TABLET BY MOUTH THREE TIMES A DAY NEEDED S OLD: 01/08/2021 [facility] 0.5 mg 01/06/2021 12:00:00 AM EDT tablet 20 TAKE 1 TABLET BY MOUTH NEEDED MAXIMUM DAILY DOSE = 1 TABLET TAKE 1 TABLET BY MOUTH NEEDED MAXIMUM DAILY DOSE = 1 TABLET SOLD: 01/06/2021 [facility] 40 mg 01/01/2021 12:00:00 AM EDT tablet 60 TAKE ONE TABLET BY MOUTH TWICE A DAY TAKE ONE TABLET BY MOUTH TWICE A DAY SOLD: 03/09/2021 [facility] 40 mg 01/01/2021 12:00:00 AM EDT tablet 60 TAKE ONE TABLET BY MOUTH TWICE A DAY TAKE ONE TABLET BY MOUTH TWICE A DAY SOLD: 01/01/2021 [facility] 40 mg 01/01/2021 12:00:00 AM EDT tablet 60 TAKE ONE TABLET BY MOUTH TWICE A DAY TAKE ONE TABLET BY MOUTH TWICE A DAY SOLD: 02/08/2021 [facility] 400 mg 12/26/2020 12:00:00 AM EDT capsule 90 TAKE ONE CAPSULE BY MOUTH THREE TIMES A DAY TAKE ONE CAPSULE BY MOUTH THREE TIMES A DAY SOLD: 12/26/2020 [facility] 400 mg 12/26/2020 12:00:00 AM EDT capsule 90 TAKE ONE CAPSULE BY MOUTH THREE TIMES A DAY TAKE ONE CAPSULE BY MOUTH THREE TIMES A DAY SOLD: 02/01/2021 [facility] 400 mg 12/26/2020 12:00:00 AM EDT capsule 90 TAKE ONE CAPSULE BY MOUTH THREE TIMES A DAY TAKE ONE CAPSULE BY MOUTH THREE TIMES A DAY SOLD: 05/03/2021 [facility] 0.5 mg 12/13/2020 12:00:00 AM EST tablet 20 TAKE ONE TABLET BY MOUTH EVERY DAY NEEDED, MAXIMUM DAILY DOSE = ONE TABLET TAKE ONE TABLET BY MOUTH EVERY DAY NEEDED, MAXIMUM DAILY DOSE = ONE TABLET SOLD: 12/13/2020 [facility] Clonazepam 0.5 MG Oral Tablet clonazepam 12/11/2020 12:00:00 AM EST 0.5 mg by mouth completed <td ID="Medica tionRxNorm_6">673507</td><td ID="MedicationMedication_6">clonazepam</td><td ID="MedicationRoute_6">by mouth</td><td ID="MedicationRouteConcept_6">S32173</td><td ID="MedicationStartDate_6">12/11/2020</td><td ID="MedicationStopDate_6"></td><td ID="MedicationDosageFrequency_6"></td><td ID="MedicationDuration_6"></td><td ID="MedicationFormulaStrength_6">0.5 mg</td><td ID="MedicationDosageForm_6">tablet</td><td ID="MedicationDosageFormCode_6"></td><td ID="MedicationDosageDescription_6">as needed</td><td ID="MedicationMedicationId_6">[id number]</td><td ID="MedicationAccount_6">[id number]</td><td ID="MedicationNpid_6">[id number]</td><td ID="MedicationAuthorFirstName_6">Russell</td><td ID="MedicationAuthorLastName_6">[place]</td><td ID="MedicationTaxonomyCode_6">[id number]</td><td ID="MedicationTaxonomyDesc_6">Nurse Practitioner</td><td ID="MedicationPhoneNumber_6">[phone]</td> [facility] ([facility]) Propranolol Hydrochloride 40 MG Oral Tablet propranolol 12/11/2020 12:00:00 AM EST 40 mg by mouth completed <td ID="MedicationRxNorm_5">854722</td><td ID="MedicationMedication_5">propranolol</td><td ID="MedicationRoute_5">by mouth</td><td ID="MedicationRouteConcept_5">Q02779</td><td ID="MedicationStartDate_5">12/11/2020</td><td ID="MedicationStopDate_5"></td><td ID="MedicationDosageFrequency_5">twice a day</td><td ID="MedicationDuration_5"></td><td ID="MedicationFormulaStrength_5">40 mg</td><td ID="MedicationDosageForm_5">tablet</td><td ID="MedicationDosageFormCode_5"></td><td ID="MedicationDosageDescription_5"></td><td ID="MedicationMedicationId_5">[id number]</td><td ID="MedicationAccount_5">[id number]</td><td ID="MedicationNpid_5">[id number]</td><td ID="MedicationAuthorFirstName_5">Adrienne</td><td ID="MedicationAuthorLastName_5">Ricky</td><td ID="MedicationTaxonomyCode_5">[id number]</td><td ID="MedicationTaxonomyDesc_5">Psychiatric/Mental Health</td><td ID="MedicationPhoneNumber_5">[phone]</td> [facility] ([facility]) Propranolol Hydrochloride 40 MG Oral Tablet propranolol 12/11/2020 12:00:00 AM EST 40 mg completed <td ID ="MedicationRxNorm_8">827800</td><td ID="MedicationMedication_8">propranolol</td><td ID="MedicationRoute_8"></td><td ID="MedicationRouteConcept_8"></td><td ID="MedicationStartDate_8">12/11/2020</td><td ID="MedicationStopDate_8">12/11/2020</td><td ID="MedicationDosageFrequency_8"></td><td ID="MedicationDuration_8"></td><td ID="MedicationFormulaStrength_8">40 mg</td><td ID="MedicationDosageForm_8">tablet</td><td ID="MedicationDosageFormCode_8"></td><td ID="MedicationDosageDescription_8"></td><td ID="MedicationMedicationId_8">[id number]</td><td ID="MedicationAccount_8">[id number]</td><td ID="MedicationNpid_8"></td><td ID="MedicationAuthorFirstName_8"></td><td ID="MedicationAuthorLastName_8"></td><td ID="MedicationTaxonomyCode_8"></td><td ID="MedicationTaxonomyDesc_8"></td><td ID="MedicationPhoneNumber_8"></td> [facility] ([facility]) Propranolol Hydrochloride 40 MG Oral Tablet propranolol 12/11/2020 12:00:00 AM EST 40 mg by mouth completed <td ID="MedicationRxNorm_3">983732</td><td ID="MedicationMedication_3">propranolol</td><td ID="MedicationRoute_3">by mouth</td><td ID="MedicationRouteConcept_3">A22951</td><td ID="MedicationStartDate_3">12/11/2020</td><td ID="MedicationStopDate_3"></td><td ID="MedicationDosageFrequency_3">twice a day</td><td ID="MedicationDuration_3"></td><td ID="MedicationFormulaStrength_3">40 mg</td><td ID="MedicationDosageForm_3">tablet</td><td ID="MedicationDosageFormCode_3"></td><td ID="MedicationDosageDescription_3"></td><td ID="MedicationMedicationId_3">[id number]</td><td ID="MedicationAccount_3">[id number]</td><td ID="MedicationNpid_3">[id number]</td><td ID="MedicationAuthorFirstName_3">Adrienne</td><td ID="MedicationAuthorLastName_3">[place]</td><td ID="MedicationTaxonomyCode_3">[id number]</td><td ID="MedicationTaxonomyDesc_3">Psychiatric/Mental Health</td><td ID="MedicationPhoneNumber_3">[phone]</td> [facility] ([facility]) Propranolol Hydrochloride 40 MG Oral Tablet propranolol 12/11/2020 12:00:00 AM EST 40 mg by mouth completed <td ID="MedicationRxNorm_2">350604</td><td ID="MedicationMedication_2">propranolol</td><td ID="MedicationRoute_2">by mouth</td><td ID="MedicationRouteConcept_2">Y78134</td><td ID="MedicationStartDate_2">12/11/2020</td><td ID="MedicationStopDate_2"></td><td ID="MedicationDosageFrequency_2">twice a day</td><td ID="MedicationDuration_2"></td><td ID="MedicationFormulaStrength_2">40 mg</td><td ID="MedicationDosageForm_2">tablet</td><td ID="MedicationDosageFormCode_2"></td><td ID="MedicationDosageDescription_2"></td><td ID="MedicationMedicationId_2">[id number]</td><td ID="MedicationAccount_2">[id number]</td><td ID="MedicationNpid_2">[id number]</td><td ID="MedicationAuthorFirstName_2">Adrienne</td><td ID="MedicationAuthorLastName_2">[place]</td><td ID="MedicationTaxonomyCode_2">[id number]</td><td ID="MedicationTaxonomyDesc_2">Psychiatric/Mental Health</td><td ID="MedicationPhoneNumber_2">[phone]</td> [facility] ([facility]) ziprasidone 80 MG Oral Capsule ZIPRASIDONE HCL 12/11/2020 12:00: 00 AM EST capsule 60 TAKE ONE CAPSULE BY MOUTH TWICE A DAY TAKE ONE CAPSULE BY MOUTH TWICE A DAY SOLD: 01/16/2021 [facility] Propranolol Hydrochloride 40 MG Oral Tablet propranolol 12/11/2020 12:00:00 AM EST 40 mg by mouth completed <td ID="MedicationRxNorm_1">023445</td><td ID="MedicationMedication_1">propranolol</td><td ID="MedicationRoute_1">by mouth</td><td ID="MedicationRouteConcept_1">W82962</td><td ID="MedicationStartDate_1">12/11/2020</td><td ID="MedicationStopDate_1"></td><td ID="MedicationDosageFrequency_1">twice a day</td><td ID="MedicationDuration_1"></td><td ID="MedicationFormulaStrength_1">40 mg</td><td ID="MedicationDosageForm_1">tablet</td><td ID="MedicationDosageFormCode_1"></td><td ID="MedicationDosageDescription_1"></td><td ID="MedicationMedicationId_1">[id number]</td><td ID="MedicationAccount_1">[id number]</td><td ID="MedicationNpid_1">[id number]</td><td ID="MedicationAuthorFirstName_1">Adrienne</td><td ID="MedicationAuthorLastName_1">Ricky</td><td ID="MedicationTaxonomyCode_1">[id number]</td><td ID="MedicationTaxonomyDesc_1">Psychiatric/Mental Health</td><td ID="MedicationPhoneNumber_1">[phone]</td> [facility] ([facility]) 1 mg 12/11/2020 12:00:00 AM EST capsule 30 TAKE ONE CAPSULE BY MOUTH EVERY DAY AT BEDTIME TAKE ONE CAPSULE BY MOUTH EVERY DAY AT BEDTIME SOLD: 021 [facility] ziprasidone 80 MG Oral Capsule ZIPRASIDONE HCL 12/11/2020 12:00: 00 AM EST capsule 60 TAKE ONE CAPSULE BY MOUTH TWICE A DAY TAKE ONE CAPSULE BY MOUTH TWICE A DAY SOLD: 12/13/2020 [facility] Clonazepam 0.5 MG Oral Tablet clonazepam 12/11/2020 12:00:00 AM EST 0.5 mg by mouth completed <td ID="Medica tionRxNorm_5">094868</td><td ID="MedicationMedication_5">clonazepam</td><td ID="MedicationRoute_5">by mouth</td><td ID="MedicationRouteConcept_5">K80537</td><td ID="MedicationStartDate_5">12/11/2020</td><td ID="MedicationStopDate_5"></td><td ID="MedicationDosageFrequency_5"></td><td ID="MedicationDuration_5"></td><td ID="MedicationFormulaStrength_5">0.5 mg</td><td ID="MedicationDosageForm_5">tablet</td><td ID="MedicationDosageFormCode_5"></td><td ID="MedicationDosageDescription_5">as needed</td><td ID="MedicationMedicationId_5">[id number]</td><td ID="MedicationAccount_5">[id number]</td><td ID="MedicationNpid_5">[id number]</td><td ID="MedicationAuthorFirstName_5">Russell</td><td ID="MedicationAuthorLastName_5">[place]</td><td ID="MedicationTaxonomyCode_5">[id number]</td><td ID="MedicationTaxonomyDesc_5">Nurse Practitioner</td><td ID="MedicationPhoneNumber_5">[phone]</td> [facility] ([facility]) 40 mg 12/04/2020 12:00:00 AM EST capsule,delayed release (DR/EC) 30 TAKE ONE CAPSULE BY MOUTH EVERY MORNING ON AN EMPTY STOMACH AT LEAST 30 MINUTES BEFORE BREAKFAST TAKE ONE CAPSULE BY MOUTH EVERY MORNING ON AN EMPTY STOMACH AT LEAST 30 MINUTES BEFORE BREAKFAST SOLD: 12/05/2020 [facility] 40 mg 12/04/2020 12:00:00 AM EST capsule,delayed release (DR/EC) 30 TAKE ONE CAPSULE BY MOUTH EVERY MORNING ON AN EMPTY STOMACH AT LEAST 30 MINUTES BEFORE BREAKFAST TAKE ONE CAPSULE BY MOUTH EVERY MORNING ON AN EMPTY STOMACH AT LEAST 30 MINUTES BEFORE BREAKFAST SOLD: 01/01/2021 [facility] 40 mg 12/04/2020 12:00:00 AM EST capsule,delayed release (DR/EC) 30 TAKE ONE CAPSULE BY MOUTH EVERY MORNING ON AN EMPTY STOMACH AT LEAST 30 MINUTES BEFORE BREAKFAST TAKE ONE CAPSULE BY MOUTH EVERY MORNING ON AN EMPTY STOMACH AT LEAST 30 MINUTES BEFORE BREAKFAST SOLD: 01/27/2021 [facility] 40 mg 12/04/2020 12:00:00 AM EST capsule,delayed release (DR/EC) 30 TAKE ONE CAPSULE BY MOUTH EVERY MORNING ON AN EMPTY STOMACH AT LEAST 30 MINUTES BEFORE BREAKFAST TAKE ONE CAPSULE BY MOUTH EVERY MORNING ON AN EMPTY STOMACH AT LEAST 30 MINUTES BEFORE BREAKFAST SOLD: 03/02/2021 [facility] buspirone hydrochloride 15 MG Oral Tablet BUSPIRONE HCL 11/25/2020 12:00:00 AM EST tablet 90 TAKE ONE TABLET BY MOUTH THR EE TIMES A DAY TAKE ONE TABLET BY MOUTH THREE TIMES A DAY SOLD: 01/01/2021 [facility] buspirone hydrochloride 15 MG Oral Tablet BUSPIRONE HCL 11/25/2020 12:00:00 AM EST tablet 90 TAKE ONE TABLET BY MOUTH THR EE TIMES A DAY TAKE ONE TABLET BY MOUTH THREE TIMES A DAY SOLD: 11/28/2020 [facility] 100 mg 11/23/2020 12:00:00 AM EST tablet 30 TAKE ONE TABLET BY MOUTH ONCE DAILY TAKE ONE TABLET BY MOUTH ONCE DAILY SOLD: 11/23/2020 [facility] 100 mg 11/23/2020 12:00:00 AM EST tablet 30 TAKE ONE TABLET BY MOUTH ONCE DAILY TAKE ONE TABLET BY MOUTH ONCE DAILY SOLD: 12/26/2020 [facility] 100 mg 11/23/2020 12:00:00 AM EST tablet 30 TAKE ONE TABLET BY MOUTH ONCE DAILY TAKE ONE TABLET BY MOUTH ONCE DAILY SOLD: 02/05/2021 [facility] 0.5 mg 11/23/2020 12:00:00 AM EST tablet 20 TAKE ONE TABLET BY MOUTH EVERY DAY , MAXIMUM DAILY DOSE = 1 TABLET TAKE ONE TABLET BY MOUTH EVERY DAY , MAX IMUM DAILY DOSE = 1 TABLET SOLD: 11/23/2020 [facility] BLOOD SUGAR DIAGNOSTIC 11/16/2020 12:00:00 AM EST strip 50 USE DIRECTED UP TO TWO TIMES A DAY USE DIRECTED UP TO TWO TIMES A DAY SOLD: 02/28/2021 [facility] 15 mg 11/16/2020 12:00:00 AM EST tablet 30 TAKE ONE TABLET BY MOUTH EVERY DAY TAKE ONE TABLET BY MOUTH EVERY DAY SOLD: 11/17/2020 [facility] 15 mg 11/16/2020 12:00:00 AM EST tablet 30 TAKE ONE TABLET BY MOUTH EVERY DAY TAKE ONE TABLET BY MOUTH EVERY DAY SOLD: 12/22/2020 [facility] 500 mg 11/16/2020 12:00:00 AM EST tablet extended release 24 hr 120 TAKE TWO TABLETS BY MOUTH TWICE A DAY TAKE TWO TABLETS BY MOUTH TWICE A DAY SOLD: 11/17/2020 [facility] 500 mg 11/16/2020 12:00:00 AM EST tablet extended release 24 hr 120 TAKE TWO TABLETS BY MOUTH TWICE A DAY TAKE TWO TABLETS BY MOUTH TWICE A DAY SOLD: 12/26/2020 [facility] BLOOD SUGAR DIAGNOSTIC 11/16/2020 12:00:00 AM EST strip 50 USE DIRECTED UP TO TWO TIMES A DAY USE DIRECTED UP TO TWO TIMES A DAY SOLD: 12/26/2020 [facility] BLOOD SUGAR DIAGNOSTIC 11/16/2020 12:00:00 AM EST strip 50 USE DIRECTED UP TO TWO TIMES A DAY USE DIRECTED UP TO TWO TIMES A DAY SOLD: 11/17/2020 [facility] 15 mg 11/16/2020 12:00:00 AM EST tablet 30 TAKE ONE TABLET BY MOUTH EVERY DAY TAKE ONE TABLET BY MOUTH EVERY DAY SOLD: 01/25/2021 [facility] 15 mg 11/16/2020 12:00:00 AM EST tablet 30 TAKE ONE TABLET BY MOUTH EVERY DAY TAKE ONE TABLET BY MOUTH EVERY DAY SOLD: 03/02/2021 [facility] [employer] Verio 11/15/2020 12:00:00 AM EST act regina [facility] ([facility] ) 800 mg 11/11/2020 12:00:00 AM EST tablet 90 TAKE ONE TABLET BY MOUTH THREE TIMES A DAY NEEDED TAKE ONE TABLET BY MOUTH THREE TIMES A DAY NEEDED S OLD: 12/13/2020 [facility] 800 mg 11/11/2020 12:00:00 AM EST tablet 90 TAKE ONE TABLET BY MOUTH THREE TIMES A DAY NEEDED TAKE ONE TABLET BY MOUTH THREE TIMES A DAY NEEDED S OLD: 11/14/2020 [facility] 40 mg 11/08/2020 12:00:00 AM EST tablet 60 TAKE ONE TABLET BY MOUTH TWICE A DAY TAKE ONE TABLET BY MOUTH TWICE A DAY SOLD: 11/08/2020 [facility] 40 mg 11/08/2020 12:00:00 AM EST tablet 60 TAKE ONE TABLET BY MOUTH TWICE A DAY TAKE ONE TABLET BY MOUTH TWICE A DAY SOLD: 12/05/2020 [facility] 0.5 mg 11/05/2020 12:00:00 AM EST tablet 20 TAKE ONE TABLET BY MOUTH EVERY DAY, MAXIMUM DAILY DOSE = ONE TABLET TAKE ONE TABLET BY MOUTH EVERY DAY, MAXI MUM DAILY DOSE = ONE TABLET SOLD: 11/05/2020 [facility] buspirone hydrochloride 15 MG Oral Tablet BUSPIRONE HCL 10/30/2020 12:00:00 AM EST tablet 90 TAKE ONE TABLET BY MOUTH THR EE TIMES A DAY TAKE ONE TABLET BY MOUTH THREE TIMES A DAY SOLD: 02/01/2021 [facility] buspirone hydrochloride 15 MG Oral Tablet BUSPIRONE HCL 10/30/2020 12:00:00 AM EST tablet 90 TAKE ONE TABLET BY MOUTH THR EE TIMES A DAY TAKE ONE TABLET BY MOUTH THREE TIMES A DAY SOLD: 11/01/2020 [facility] ziprasidone 80 MG Oral Capsule ziprasidone HCl 10/25/2020 12:00:00 AM EST 80 mg by mouth completed <td ID="Me dicationRxNorm_1">748750</td><td ID="MedicationMedication_1">ziprasidone HCl</td><td ID="MedicationRoute_1">by mouth</td><td ID="MedicationRouteConcept_1">G87994</td><td ID="MedicationStartDate_1">10/25/2020</td><td ID="MedicationStopDate_1"></td><td ID="MedicationDosageFrequency_1">twice a day</td><td ID="MedicationDuration_1"></td><td ID="MedicationFormulaStrength_1">80 mg</td><td ID="MedicationDosageForm_1">capsule</td><td ID="MedicationDosageFormCode_1"></td><td ID="MedicationDosageDescription_1"></td><td ID="MedicationMedicationId_1">[id number]</td><td ID="MedicationAccount_1">[id number]</td><td ID="MedicationNpid_1">[id number]</td><td ID="MedicationAuthorFirstName_1">Adrienne</td><td ID="MedicationAuthorLastName_1">Ricky</td><td ID="MedicationTaxonomyCode_1">[id number]</td><td ID="MedicationTaxonomyDesc_1">Psychiatric/Mental Health</td><td ID="MedicationPhoneNumber_1">[phone]</td> [facility] ([facility]) ziprasidone 80 MG Oral Capsule ziprasidone HCl 10/25/2020 12:00:00 AM EST 80 mg by mouth completed <td ID="Me dicationRxNorm_3">945788</td><td ID="MedicationMedication_3">ziprasidone HCl</td><td ID="MedicationRoute_3">by mouth</td><td ID="MedicationRouteConcept_3">B56203</td><td ID="MedicationStartDate_3">10/25/2020</td><td ID="MedicationStopDate_3"></td><td ID="MedicationDosageFrequency_3">twice a day</td><td ID="MedicationDuration_3"></td><td ID="MedicationFormulaStrength_3">80 mg</td><td ID="MedicationDosageForm_3">capsule</td><td ID="MedicationDosageFormCode_3"></td><td ID="MedicationDosageDescription_3"></td><td ID="MedicationMedicationId_3">[id number]</td><td ID="MedicationAccount_3">[id number]</td><td ID="MedicationNpid_3">[id number]</td><td ID="MedicationAuthorFirstName_3">Russell</td><td ID="MedicationAuthorLastName_3">[place]</td><td ID="MedicationTaxonomyCode_3">[id number]</td><td ID="MedicationTaxonomyDesc_3">Nurse Practitioner</td><td ID="MedicationPhoneNumber_3">[phone]</td> [facility] ([facility]) ziprasidone 80 MG Oral Capsule ziprasidone HCl 10/25/2020 12:00:00 AM EST 80 mg by mouth completed <td ID="Me dicationRxNorm_7">228245</td><td ID="MedicationMedication_7">ziprasidone HCl</td><td ID="MedicationRoute_7">by mouth</td><td ID="MedicationRouteConcept_7">Y19486</td><td ID="MedicationStartDate_7">10/25/2020</td><td ID="MedicationStopDate_7"></td><td ID="MedicationDosageFrequency_7">twice a day</td><td ID="MedicationDuration_7"></td><td ID="MedicationFormulaStrength_7">80 mg</td><td ID="MedicationDosageForm_7">capsule</td><td ID="MedicationDosageFormCode_7"></td><td ID="MedicationDosageDescription_7"></td><td ID="MedicationMedicationId_7">[id number]</td><td ID="MedicationAccount_7">[id number]</td><td ID="MedicationNpid_7">[id number]</td><td ID="MedicationAuthorFirstName_7">Russell</td><td ID="MedicationAuthorLastName_7">[place]</td><td ID="MedicationTaxonomyCode_7">[id number]</td><td ID="MedicationTaxonomyDesc_7">Nurse Practitioner</td><td ID="MedicationPhoneNumber_7">[phone]</td> [facility] ([facility]) ziprasidone 80 MG Oral Capsule ziprasidone HCl 10/25/2020 12:00:00 AM EST 80 mg by mouth completed <td ID="Me dicationRxNorm_4">998549</td><td ID="MedicationMedication_4">ziprasidone HCl</td><td ID="MedicationRoute_4">by mouth</td><td ID="MedicationRouteConcept_4">A39844</td><td ID="MedicationStartDate_4">10/25/2020</td><td ID="MedicationStopDate_4">08/06/2021</td><td ID="MedicationDosageFrequency_4">twice a day</td><td ID="MedicationDuration_4">30</td><td ID="MedicationFormulaStrength_4">80 mg</td><td ID="MedicationDosageForm_4">capsule</td><td ID="MedicationDosageFormCode_4"></td><td ID="MedicationDosageDescription_4"></td><td ID="MedicationMedicationId_4">[id number]</td><td ID="MedicationAccount_4">[id number]</td><td ID="MedicationNpid_4">[id number]</td><td ID="MedicationAuthorFirstName_4">Susanne</td><td ID="MedicationAuthorLastName_4">Irvin</td><td ID="MedicationTaxonomyCode_4">[id number]</td><td ID="MedicationTaxonomyDesc_4">Nurse Practitioner</td><td ID="MedicationPhoneNumber_4">[phone]</td> [facility]) ziprasidone 80 MG Oral Capsule ziprasidone HCl 10/25/2020 12:00:00 AM EST 80 mg by mouth completed <td ID="Me dicationRxNorm_2">715758</td><td ID="MedicationMedication_2">ziprasidone HCl</td><td ID="MedicationRoute_2">by mouth</td><td ID="MedicationRouteConcept_2">O43822</td><td ID="MedicationStartDate_2">10/25/2020</td><td ID="MedicationStopDate_2"></td><td ID="MedicationDosageFrequency_2">twice a day</td><td ID="MedicationDuration_2"></td><td ID="MedicationFormulaStrength_2">80 mg</td><td ID="MedicationDosageForm_2">capsule</td><td ID="MedicationDosageFormCode_2"></td><td ID="MedicationDosageDescription_2"></td><td ID="MedicationMedicationId_2">[id number]</td><td ID="MedicationAccount_2">[id number]</td><td ID="MedicationNpid_2">[id number]</td><td ID="MedicationAuthorFirstName_2">Adrienne</td><td ID="MedicationAuthorLastName_2">Ricky</td><td ID="MedicationTaxonomyCode_2">[id number]</td><td ID="MedicationTaxonomyDesc_2">Psychiatric/Mental Health</td><td ID="MedicationPhoneNumber_2">[phone]</td> [facility]) 20 mg 10/25/2020 12:00:00 AM EST tablet 30 TAKE ONE TABLET BY MOUTH EVERY DAY TAKE ONE TABLET BY MOUTH EVERY DAY SOLD: 01/06/2021 [facility] 20 mg 10/25/2020 12:00:00 AM EST tablet 30 TAKE ONE TABLET BY MOUTH EVERY DAY TAKE ONE TABLET BY MOUTH EVERY DAY SOLD: 11/29/2020 [facility] ziprasidone 80 MG Oral Capsule ziprasidone HCl 10/25/2020 12:00:00 AM EST 80 mg by mouth completed <td ID="Me dicationRxNorm_6">475259</td><td ID="MedicationMedication_6">ziprasidone HCl</td><td ID="MedicationRoute_6">by mouth</td><td ID="MedicationRouteConcept_6">Y82397</td><td ID="MedicationStartDate_6">10/25/2020</td><td ID="MedicationStopDate_6">08/06/2021</td><td ID="MedicationDosageFrequency_6">twice a day</td><td ID="MedicationDuration_6">30</td><td ID="MedicationFormulaStrength_6">80 mg</td><td ID="MedicationDosageForm_6">capsule</td><td ID="MedicationDosageFormCode_6"></td><td ID="MedicationDosageDescription_6"></td><td ID="MedicationMedicationId_6">[id number]</td><td ID="MedicationAccount_6">[id number]</td><td ID="MedicationNpid_6">[id number]</td><td ID="MedicationAuthorFirstName_6">Susanne</td><td ID="MedicationAuthorLastName_6">Irvin</td><td ID="MedicationTaxonomyCode_6">[id number]</td><td ID="MedicationTaxonomyDesc_6">Nurse Practitioner</td><td ID="MedicationPhoneNumber_6">[phone]</td> [facility] ([facility]) 20 mg 10/25/2020 12:00:00 AM EST tablet 30 TAKE ONE TABLET BY MOUTH EVERY DAY TAKE ONE TABLET BY MOUTH EVERY DAY SOLD: 10/27/2020 [facility] 20 mg 10/25/2020 12:00:00 AM EST tablet 30 TAKE ONE TABLET BY MOUTH EVERY DAY TAKE ONE TABLET BY MOUTH EVERY DAY SOLD: 02/23/2021 [facility] 15 mg 10/19/2020 12:00:00 AM EST tablet 30 TAKE ONE TABLET BY MOUTH EVERY DAY, MAXIMUM DAILY DOSE = ONE TABLET TAKE ONE TABLET BY MOUTH EVERY DAY, MAXI MUM DAILY DOSE = ONE TABLET SOLD: 10/25/2020 [facility] Steglatro Steglatro 10/18/2020 12:00:00 AM EST ORAL act regina [facility] ([facility]) 0.5 mg 2020 12:00:00 AM EST tablet 20 TAKE ONE TABLET BY MOUTH EVERY DAY , MAXIMUM DAILY DOSE = 1 TABLET TAKE ONE TABLET BY MOUTH EVERY DAY , MAX IMUM DAILY DOSE = 1 TABLET SOLD: 2020 [facility] ziprasidone 80 MG Oral Capsule ZIPRASIDONE HCL 10/16/2020 12:00: 00 AM EST capsule 60 TAKE ONE CAPSULE BY MOUTH TWICE A DAY - TAKE WITH FOOD TAKE ONE CAPSULE BY MOUTH TWICE A DAY - TAKE WITH FOOD SOLD: 11/14/2020 [facility] ziprasidone 80 MG Oral Capsule ZIPRASIDONE HCL 10/16/2020 12:00: 00 AM EST capsule 60 TAKE ONE CAPSULE BY MOUTH TWICE A DAY - TAKE WITH FOOD TAKE ONE CAPSULE BY MOUTH TWICE A DAY - TAKE WITH FOOD SOLD: 10/16/2020 [facility] 50 mcg/actuation 10/04/2020 12:00:00 AM EST spray,suspension 16 SPRAY ONE SPRAY IN EACH NOSTRIL EVERY DAY SPRAY ONE SPRAY IN EACH NOSTRIL EVERY DAY SOLD: 10/10/2020 [facility] 0.5 mg 09/21/2020 12:00:00 AM EST tablet 20 TAKE ONE TABLET BY MOUTH EVERY DAY, MAXIMUM DAILY DOSE = ONE TABLET TAKE ONE TABLET BY MOUTH EVERY DAY, MAXI MUM DAILY DOSE = ONE TABLET SOLD: 09/22/2020 [facility] 3 ML Insulin Glargine 100 UNT/ML Pen Injector [Basagla r] 100 unit/mL (3 mL) INSULIN GLARGINE,HUM.REC.ANLOG 09/20/2020 12:00:00 AM EST insulin pen 15 INJECT 20 UNITS UNDER THE SKIN ONCE DAILY INJECT 20 UNITS UNDER THE SKIN ONCE DAILY SOLD: 05/14/2021 [facility] 100 unit/mL (3 mL) 09/20/2020 12:00:00 AM EST insulin pen 15 INJECT 20 UNITS UNDER THE SKIN ONCE DAILY INJECT 20 UNITS UNDER THE SKIN ONCE DAILY SOLD: 09/22/2020 [facility] 100 unit/mL (3 mL) 09/20/2020 12:00:00 AM EST insulin pen 15 INJECT 20 UNITS UNDER THE SKIN ONCE DAILY INJECT 20 UNITS UNDER THE SKIN ONCE DAILY SOLD: 11/17/2020 [facility] 3 ML Insulin Glargine 100 UNT/ML Pen Injector [Basagla r] 100 unit/mL (3 mL) INSULIN GLARGINE,HUM.REC.ANLOG 09/20/2020 12:00:00 AM EST insulin pen 15 INJECT 20 UNITS UNDER THE SKIN ONCE DAILY INJECT 20 UNITS UNDER THE SKIN ONCE DAILY SOLD: 03/23/2021 [facility] 100 unit/mL (3 mL) 09/20/2020 12:00:00 AM EST insulin pen 15 INJECT 20 UNITS UNDER THE SKIN ONCE DAILY INJECT 20 UNITS UNDER THE SKIN ONCE DAILY SOLD: 01/15/2021 [facility] 40 mg 09/15/2020 12:00:00 AM EST tablet 60 TAKE ONE TABLET BY MOUTH TWICE A DAY TAKE ONE TABLET BY MOUTH TWICE A DAY SOLD: 10/13/2020 [facility] buspirone hydrochloride 15 MG Oral Tablet BUSPIRONE HCL 09/15/2020 12:00:00 AM EST tablet 60 TAKE ONE TABLET BY MOUTH TWI CE A DAY TAKE ONE TABLET BY MOUTH TWICE A DAY SOLD: 10/13/2020 [facility] 40 mg 09/15/2020 12:00:00 AM EST tablet 60 TAKE ONE TABLET BY MOUTH TWICE A DAY TAKE ONE TABLET BY MOUTH TWICE A DAY SOLD: 09/15/2020 [facility] ziprasidone 80 MG Oral Capsule ZIPRASIDONE HCL 09/15/2020 12:00: 00 AM EST capsule 60 TAKE ONE CAPSULE BY MOUTH TWICE A DAY TAKE ONE CAPSULE BY MOUTH TWICE A DAY SOLD: 09/15/2020 [facility] buspirone hydrochloride 15 MG Oral Tablet BUSPIRONE HCL 09/15/2020 12:00:00 AM EST tablet 60 TAKE ONE TABLET BY MOUTH TWI CE A DAY TAKE ONE TABLET BY MOUTH TWICE A DAY SOLD: 09/15/2020 [facility] Fenofibrate 134 MG Oral Capsule FENOFIBRATE,MICRONIZED 09/12 12:00:00 AM EST capsule 30 TAKE ONE CAPSULE BY MOUTH EV NAI DAY TAKE ONE CAPSULE BY MOUTH EVERY DAY SOLD: 09/12/2020 [facility] Fenofibrate 134 MG Oral Capsule FENOFIBRATE,MICRONIZED 09/12 12:00:00 AM EST capsule 30 TAKE ONE CAPSULE BY MOUTH EV NAI DAY TAKE ONE CAPSULE BY MOUTH EVERY DAY SOLD: 11/14/2020 [facility] Fenofibrate 134 MG Oral Capsule FENOFIBRATE,MICRONIZED 09/12 12:00:00 AM EST capsule 30 TAKE ONE CAPSULE BY MOUTH EV NAI DAY TAKE ONE CAPSULE BY MOUTH EVERY DAY SOLD: 12/13/2020 [facility] BLOOD SUGAR DIAGNOSTIC 09/12/2020 12:00:00 AM EST strip 100 USE TO CHECK BLOOD SUGAR THREE TIMES A DAY USE TO CHECK BLOOD SUGAR THREE TIMES A DAY SOLD: 09/12/2020 [facility] Fenofibrate 134 MG Oral Capsule FENOFIBRATE,MICRONIZED 09/12 12:00:00 AM EST capsule 30 TAKE ONE CAPSULE BY MOUTH EV NAI DAY TAKE ONE CAPSULE BY MOUTH EVERY DAY SOLD: 10/13/2020 [facility] Clindamycin 150 MG Oral Capsule CLINDAMYCIN HCL 09/01/2020 12:00 :00 AM EST capsule 28 TAKE ONE CAPSULE BY MOUTH EVERY 6 HOURS TAKE ONE CAPSULE BY MOUTH EVERY 6 HOURS SOLD: 09/04/2020 [facility] 500 mg 08/30/2020 12:00:00 AM EST tablet extended release 24 hr 120 TAKE TWO TABLETS BY MOUTH TWICE A DAY TAKE TWO TABLETS BY MOUTH TWICE A DAY SOLD: 10/16/2020 [facility] 500 mg 08/30/2020 12:00:00 AM EST tablet extended release 24 hr 120 TAKE TWO TABLETS BY MOUTH TWICE A DAY TAKE TWO TABLETS BY MOUTH TWICE A DAY SOLD: 08/31/2020 [facility] Prazosin 1 MG Oral Capsule prazosin 08/24/2020 12:00:00 AM EST 1 mg by mouth completed <td ID="Medicat ionRxNorm_3">322356</td><td ID="MedicationMedication_3">prazosin</td><td ID="MedicationRoute_3">by mouth</td><td ID="MedicationRouteConcept_3">U46117</td><td ID="MedicationStartDate_3">08/24/2020</td><td ID="MedicationStopDate_3"></td><td ID="MedicationDosageFrequency_3">at bedtime</td><td ID="MedicationDuration_3"></td><td ID="MedicationFormulaStrength_3">1 mg</td><td ID="MedicationDosageForm_3">capsule</td><td ID="MedicationDosageFormCode_3"></td><td ID="MedicationDosageDescription_3"></td><td ID="MedicationMedicationId_3">[id number]</td><td ID="MedicationAccount_3">[id number]</td><td ID="MedicationNpid_3">[id number]</td><td ID="MedicationAuthorFirstName_3">Adrienne</td><td ID="MedicationAuthorLastName_3">[place]</td><td ID="MedicationTaxonomyCode_3">[id number]</td><td ID="MedicationTaxonomyDesc_3">Psychiatric/Mental Health</td><td ID="MedicationPhoneNumber_3">[phone]</td> [facility]) 1 mg 08/24/2020 12:00:00 AM EST capsule 30 TAKE ONE CAPSULE BY MOUTH EVERY DAY AT BEDTIME TAKE ONE CAPSULE BY MOUTH EVERY DAY AT BEDTIME SOLD: 020 [facility] 100 mg 08/24/2020 12:00:00 AM EST tablet 30 TAKE ONE TABLET BY MOUTH EVERY DAY TAKE ONE TABLET BY MOUTH EVERY DAY SOLD: 10/27/2020 [facility] 400 mg 08/24/2020 12:00:00 AM EST capsule 90 TAKE ONE CAPSULE BY MOUTH THREE TIMES A DAY TAKE ONE CAPSULE BY MOUTH THREE TIMES A DAY SOLD: 08/24/2020 [facility] 100 mg 08/24/2020 12:00:00 AM EST tablet 30 TAKE ONE TABLET BY MOUTH EVERY DAY TAKE ONE TABLET BY MOUTH EVERY DAY SOLD: 09/26/2020 [facility] 400 mg 08/24/2020 12:00:00 AM EST capsule 90 TAKE ONE CAPSULE BY MOUTH THREE TIMES A DAY TAKE ONE CAPSULE BY MOUTH THREE TIMES A DAY SOLD: 10/02/2020 [facility] 400 mg 08/24/2020 12:00:00 AM EST capsule 90 TAKE ONE CAPSULE BY MOUTH THREE TIMES A DAY TAKE ONE CAPSULE BY MOUTH THREE TIMES A DAY SOLD: 11/01/2020 [facility] 0.5 mg 08/24/2020 12:00:00 AM EST tablet 30 TAKE ONE TABLET BY MOUTH EVERY DAY MAXIMUM DAILY DOSE = ONE TABLET TAKE ONE TABLET BY MOUTH EVERY DAY MAXIM UM DAILY DOSE = ONE TABLET SOLD: 08/24/2020 [facility] Prazosin 1 MG Oral Capsule prazosin 08/24/2020 12:00:00 AM EST 1 mg by mouth completed <td ID="Medicat ionRxNorm_2">346935</td><td ID="MedicationMedication_2">prazosin</td><td ID="MedicationRoute_2">by mouth</td><td ID="MedicationRouteConcept_2">L69860</td><td ID="MedicationStartDate_2">08/24/2020</td><td ID="MedicationStopDate_2"></td><td ID="MedicationDosageFrequency_2">at bedtime</td><td ID="MedicationDuration_2"></td><td ID="MedicationFormulaStrength_2">1 mg</td><td ID="MedicationDosageForm_2">capsule</td><td ID="MedicationDosageFormCode_2"></td><td ID="MedicationDosageDescription_2"></td><td ID="MedicationMedicationId_2">[id number]</td><td ID="MedicationAccount_2">[id number]</td><td ID="MedicationNpid_2">[id number]</td><td ID="MedicationAuthorFirstName_2">Adrienne</td><td ID="MedicationAuthorLastName_2">[place]</td><td ID="MedicationTaxonomyCode_2">[id number]</td><td ID="MedicationTaxonomyDesc_2">Psychiatric/Mental Health</td><td ID="MedicationPhoneNumber_2">[phone]</td> [facility] ([facility]) Clonazepam 0.5 MG Oral Tablet clonazepam 08/24/2020 12:00:00 AM EST 0.5 mg by mouth completed <td ID="Medica tionRxNorm_2">838312</td><td ID="MedicationMedication_2">clonazepam</td><td ID="MedicationRoute_2">by mouth</td><td ID="MedicationRouteConcept_2">Y15795</td><td ID="MedicationStartDate_2">08/24/2020</td><td ID="MedicationStopDate_2"></td><td ID="MedicationDosageFrequency_2">once a day</td><td ID="MedicationDuration_2"></td><td ID="MedicationFormulaStrength_2">0.5 mg</td><td ID="MedicationDosageForm_2">tablet</td><td ID="MedicationDosageFormCode_2"></td><td ID="MedicationDosageDescription_2"></td><td ID="MedicationMedicationId_2">[id number]</td><td ID="MedicationAccount_2">[id number]</td><td ID="MedicationNpid_2">[id number]</td><td ID="MedicationAuthorFirstName_2">Susanne</td><td ID="MedicationAuthorLastName_2">Irvin</td><td ID="MedicationTaxonomyCode_2">[id number]</td><td ID="MedicationTaxonomyDesc_2">Nurse Practitioner</td><td ID="MedicationPhoneNumber_2">[phone]</td> [facility] ([facility]) Clonazepam 0.5 MG Oral Tablet clonazepam 08/24/2020 12:00:00 AM EST 0.5 mg by mouth completed <td ID="Medica tionRxNorm_7">895749</td><td ID="MedicationMedication_7">clonazepam</td><td ID="MedicationRoute_7">by mouth</td><td ID="MedicationRouteConcept_7">F38639</td><td ID="MedicationStartDate_7">08/24/2020</td><td ID="MedicationStopDate_7">12/11/2020</td><td ID="MedicationDosageFrequency_7">once a day</td><td ID="MedicationDuration_7"></td><td ID="MedicationFormulaStrength_7">0.5 mg</td><td ID="MedicationDosageForm_7">tablet</td><td ID="MedicationDosageFormCode_7"></td><td ID="MedicationDosageDescription_7"></td><td ID="MedicationMedicationId_7">[id number]</td><td ID="MedicationAccount_7">[id number]</td><td ID="MedicationNpid_7">[id number]</td><td ID="MedicationAuthorFirstName_7">Susanne</td><td ID="MedicationAuthorLastName_7">Irvin</td><td ID="MedicationTaxonomyCode_7">[id number]</td><td ID="MedicationTaxonomyDesc_7">Nurse Practitioner</td><td ID="MedicationPhoneNumber_7">[phone]</td> [facility] ([facility]) Prazosin 1 MG Oral Capsule prazosin 08/24/2020 12:00:00 AM EST 1 mg by mouth completed <td ID="Medicat ionRxNorm_4">266721</td><td ID="MedicationMedication_4">prazosin</td><td ID="MedicationRoute_4">by mouth</td><td ID="MedicationRouteConcept_4">L66536</td><td ID="MedicationStartDate_4">08/24/2020</td><td ID="MedicationStopDate_4"></td><td ID="MedicationDosageFrequency_4">at bedtime</td><td ID="MedicationDuration_4"></td><td ID="MedicationFormulaStrength_4">1 mg</td><td ID="MedicationDosageForm_4">capsule</td><td ID="MedicationDosageFormCode_4"></td><td ID="MedicationDosageDescription_4"></td><td ID="MedicationMedicationId_4">[id number]</td><td ID="MedicationAccount_4">[id number]</td><td ID="MedicationNpid_4">[id number]</td><td ID="MedicationAuthorFirstName_4">Adrienne</td><td ID="MedicationAuthorLastName_4">[place]</td><td ID="MedicationTaxonomyCode_4">[id number]</td><td ID="MedicationTaxonomyDesc_4">Psychiatric/Mental Health</td><td ID="MedicationPhoneNumber_4">[phone]</td> [facility] ([facility]) 100 mg 08/24/2020 12:00:00 AM EST tablet 30 TAKE ONE TABLET BY MOUTH EVERY DAY TAKE ONE TABLET BY MOUTH EVERY DAY SOLD: 08/24/2020 [facility] Clonazepam 0.5 MG Oral Tablet clonazepam 08/24/2020 12:00:00 AM EST 0.5 mg by mouth completed <td ID="Medica tionRxNorm_3">350041</td><td ID="MedicationMedication_3">clonazepam</td><td ID="MedicationRoute_3">by mouth</td><td ID="MedicationRouteConcept_3">V06828</td><td ID="MedicationStartDate_3">08/24/2020</td><td ID="MedicationStopDate_3"></td><td ID="MedicationDosageFrequency_3">once a day</td><td ID="MedicationDuration_3"></td><td ID="MedicationFormulaStrength_3">0.5 mg</td><td ID="MedicationDosageForm_3">tablet</td><td ID="MedicationDosageFormCode_3"></td><td ID="MedicationDosageDescription_3"></td><td ID="MedicationMedicationId_3">[id number]</td><td ID="MedicationAccount_3">[id number]</td><td ID="MedicationNpid_3">[id number]</td><td ID="MedicationAuthorFirstName_3">Adrienne</td><td ID="MedicationAuthorLastName_3">[place]</td><td ID="MedicationTaxonomyCode_3">[id number]</td><td ID="MedicationTaxonomyDesc_3">Psychiatric/Mental Health</td><td ID="MedicationPhoneNumber_3">[phone]</td> [facility] ([facility]) Jc Greene 08/18/2020 12:00:00 AM EST ORAL com pleted [facility] ([facility] ) 5 mg 08/18/2020 12:00:00 AM EST tablet 30 TAKE ONE TABLET BY MOUTH EVERY DAY TAKE ONE TABLET BY MOUTH EVERY DAY SOLD: 08/18/2020 [facility] 5 mg 08/18/2020 12:00:00 AM EST tablet 30 TAKE ONE TABLET BY MOUTH EVERY DAY TAKE ONE TABLET BY MOUTH EVERY DAY SOLD: 09/18/2020 [facility] 5 mg 08/18/2020 12:00:00 AM EST tablet 30 TAKE ONE TABLET BY MOUTH EVERY DAY TAKE ONE TABLET BY MOUTH EVERY DAY SOLD: 10/14/2020 [facility] 40 mg 08/17/2020 12:00:00 AM EST capsule,delayed release (DR/EC) 30 TAKE ONE CAPSULE BY MOUTH EVERY DAY IN THE MORNING ON AN EMPTY STOMACH, AT LEST 30 MINUTES BEFORE BREAKFAST TAKE ONE CAPSULE BY MOUTH EVERY DAY IN [facility] MORNING ON AN EMPTY STOMACH, AT LEST 30 MINUTES BEFORE BREAKFAST SOLD: 09/12/2020 [facility] empagliflozin 10 MG Oral Tablet [Jardiance] Jardiance 08/17/2020 12:00:00 AM EST ORAL completed [facility] ([facility] ) 40 mg 08/17/2020 12:00:00 AM EST capsule,delayed release (DR/EC) 30 TAKE ONE CAPSULE BY MOUTH EVERY DAY IN THE MORNING ON AN EMPTY STOMACH, AT LEST 30 MINUTES BEFORE BREAKFAST TAKE ONE CAPSULE BY MOUTH EVERY DAY IN [facility] MORNING ON AN EMPTY STOMACH, AT LEST 30 MINUTES BEFORE BREAKFAST SOLD: 11/08/2020 [facility] 40 mg 08/17/2020 12:00:00 AM EST capsule,delayed release (DR/EC) 30 TAKE ONE CAPSULE BY MOUTH EVERY DAY IN THE MORNING ON AN EMPTY STOMACH, AT LEST 30 MINUTES BEFORE BREAKFAST TAKE ONE CAPSULE BY MOUTH EVERY DAY IN [facility] ON AN EMPTY STOMACH, AT LEST 30 MINUTES BEFORE BREAKFAST SOLD: 08/17/2020 [facility] 40 mg 08/17/2020 12:00:00 AM EST capsule,delayed release (DR/EC) 30 TAKE ONE CAPSULE BY MOUTH EVERY DAY IN THE MORNING ON AN EMPTY STOMACH, AT LEST 30 MINUTES BEFORE BREAKFAST TAKE ONE CAPSULE BY MOUTH EVERY DAY IN [facility] MORNING ON AN EMPTY STOMACH, AT LEST 30 MINUTES BEFORE BREAKFAST SOLD: 10/10/2020 [facility] 25 mcg 08/16/2020 12:00:00 AM EST tablet 30 TAKE ONE TABLET BY MOUTH EVERY DAY TAKE ONE TABLET BY MOUTH EVERY DAY SOLD: 09/18/2020 [facility] ziprasidone 80 MG Oral Capsule ZIPRASIDONE HCL 08/16/2020 12:00: 00 AM EST capsule 60 TAKE ONE CAPSULE BY MOUTH TWICE A DAY TAKE ONE CAPSULE BY MOUTH TWICE A DAY SOLD: 08/17/2020 [facility] s 25 mcg 08/16/2020 12:00:00 AM EST tablet 30 TAKE ONE TABLET BY MOUTH EVERY DAY TAKE ONE TABLET BY MOUTH EVERY DAY SOLD: 10/14/2020 [facility] 25 mcg 08/16/2020 12:00:00 AM EST tablet 30 TAKE ONE TABLET BY MOUTH EVERY DAY TAKE ONE TABLET BY MOUTH EVERY DAY SOLD: 08/17/2020 [facility] 25 mcg 08/16/2020 12:00:00 AM EST tablet 30 TAKE ONE TABLET BY MOUTH EVERY DAY TAKE ONE TABLET BY MOUTH EVERY DAY SOLD: 01/19/2021 [facility] 25 mcg 08/16/2020 12:00:00 AM EST tablet 30 TAKE ONE TABLET BY MOUTH EVERY DAY TAKE ONE TABLET BY MOUTH EVERY DAY SOLD: 12/19/2020 [facility] 25 mcg 08/16/2020 12:00:00 AM EST tablet 30 TAKE ONE TABLET BY MOUTH EVERY DAY TAKE ONE TABLET BY MOUTH EVERY DAY SOLD: 11/14/2020 [facility] 0.5 mg 08/15/2020 12:00:00 AM EST tablet 10 TAKE ONE TABLET BY MOUTH EVERY DAY DIRECTED, MAXIMUM DAILY DOSE = ONE TABLET TAKE ONE TABLET BY MOUTH EVERY DAY DIRECTED, MAXIMUM DAILY DOSE = ONE TABLET SOLD: 08/15/2020 [facility] Clonazepam 0.5 MG Oral Tablet clonazepam 08/14/2020 12:00:00 AM EST 0.5 mg by mouth completed <td ID="Medica tionRxNorm_5">849213</td><td ID="MedicationMedication_5">clonazepam</td><td ID="MedicationRoute_5">by mouth</td><td ID="MedicationRouteConcept_5">O65011</td><td ID="MedicationStartDate_5">08/14/2020</td><td ID="MedicationStopDate_5">08/24/2020</td><td ID="MedicationDosageFrequency_5">once a day</td><td ID="MedicationDuration_5">10</td><td ID="MedicationFormulaStrength_5">0.5 mg</td><td ID="MedicationDosageForm_5">tablet</td><td ID="MedicationDosageFormCode_5"></td><td ID="MedicationDosageDescription_5">as directed</td><td ID="MedicationMedicationId_5">[id number]</td><td ID="MedicationAccount_5">[id number]</td><td ID="MedicationNpid_5">[id number]</td><td ID="MedicationAuthorFirstName_5">Adrienne</td><td ID="MedicationAuthorLastName_5">Ricky</td><td ID="MedicationTaxonomyCode_5">[id number]</td><td ID="MedicationTaxonomyDesc_5">Psychiatric/Mental Health</td><td ID="MedicationPhoneNumber_5">[phone]</td> [facility] ([facility]) Clonazepam 0.5 MG Oral Tablet clonazepam 08/14/2020 12:00:00 AM EST 0.5 mg by mouth completed <td ID="Medica tionRxNorm_3">968135</td><td ID="MedicationMedication_3">clonazepam</td><td ID="MedicationRoute_3">by mouth</td><td ID="MedicationRouteConcept_3">S29757</td><td ID="MedicationStartDate_3">08/14/2020</td><td ID="MedicationStopDate_3">08/24/2020</td><td ID="MedicationDosageFrequency_3">once a day</td><td ID="MedicationDuration_3">10</td><td ID="MedicationFormulaStrength_3">0.5 mg</td><td ID="MedicationDosageForm_3">tablet</td><td ID="MedicationDosageFormCode_3"></td><td ID="MedicationDosageDescription_3">as directed</td><td ID="MedicationMedicationId_3">[id number]</td><td ID="MedicationAccount_3">[id number]</td><td ID="MedicationNpid_3">[id number]</td><td ID="MedicationAuthorFirstName_3">Adrienne</td><td ID="MedicationAuthorLastName_3">Ricky</td><td ID="MedicationTaxonomyCode_3">[id number]</td><td ID="MedicationTaxonomyDesc_3">Psychiatric/Mental Health</td><td ID="MedicationPhoneNumber_3">[phone]</td> [facility] ([facility]) lamotrigine 100 MG Oral Tablet [Lamictal] Lamictal 07/25/2020 1 2:00:00 AM EDT 100 mg by mouth completed <td ID="Me dicationRxNorm_9">932803</td><td ID="MedicationMedication_9">Lamictal</td><td ID="MedicationRoute_9">by mouth</td><td ID="MedicationRouteConcept_9">W95276</td><td ID="MedicationStartDate_9">07/25/2020</td><td ID="MedicationStopDate_9">02/18/2021</td><td ID="MedicationDosageFrequency_9">once a day</td><td ID="MedicationDuration_9">30</td><td ID="MedicationFormulaStrength_9">100 mg</td><td ID="MedicationDosageForm_9">tablet</td><td ID="MedicationDosageFormCode_9"></td><td ID="MedicationDosageDescription_9"></td><td ID="MedicationMedicationId_9">[id number]</td><td ID="MedicationAccount_9">[id number]</td><td ID="MedicationNpid_9">[id number]</td><td ID="MedicationAuthorFirstName_9">Susanne</td><td ID="MedicationAuthorLastName_9">Irvin</td><td ID="MedicationTaxonomyCode_9">[id number]</td><td ID="MedicationTaxonomyDesc_9">Nurse Practitioner</td><td ID="MedicationPhoneNumber_9">[phone]</td> [facility] ([facility]) lamotrigine 100 MG Oral Tablet [Lamictal] Lamictal 07/25/2020 1 2:00:00 AM EDT 100 mg by mouth completed <td ID="Me dicationRxNorm_8">597146</td><td ID="MedicationMedication_8">Lamictal</td><td ID="MedicationRoute_8">by mouth</td><td ID="MedicationRouteConcept_8">A04562</td><td ID="MedicationStartDate_8">07/25/2020</td><td ID="MedicationStopDate_8">11/22/2020</td><td ID="MedicationDosageFrequency_8">once a day</td><td ID="MedicationDuration_8">30</td><td ID="MedicationFormulaStrength_8">100 mg</td><td ID="MedicationDosageForm_8">tablet</td><td ID="MedicationDosageFormCode_8"></td><td ID="MedicationDosageDescription_8"></td><td ID="MedicationMedicationId_8">[id number]</td><td ID="MedicationAccount_8">[id number]</td><td ID="MedicationNpid_8">[id number]</td><td ID="MedicationAuthorFirstName_8">Adrienne</td><td ID="MedicationAuthorLastName_8">[place]</td><td ID="MedicationTaxonomyCode_8">[id number]</td><td ID="MedicationTaxonomyDesc_8">Psychiatric/Mental Health</td><td ID="MedicationPhoneNumber_8">[phone]</td> [facility] ([facility]) lamotrigine 100 MG Oral Tablet [Lamictal] Lamictal 07/25/2020 1 2:00:00 AM EDT 100 mg by mouth completed <td ID="Me dicationRxNorm_5">616919</td><td ID="MedicationMedication_5">Lamictal</td><td ID="MedicationRoute_5">by mouth</td><td ID="MedicationRouteConcept_5">L63765</td><td ID="MedicationStartDate_5">07/25/2020</td><td ID="MedicationStopDate_5">11/22/2020</td><td ID="MedicationDosageFrequency_5">once a day</td><td ID="MedicationDuration_5">30</td><td ID="MedicationFormulaStrength_5">100 mg</td><td ID="MedicationDosageForm_5">tablet</td><td ID="MedicationDosageFormCode_5"></td><td ID="MedicationDosageDescription_5"></td><td ID="MedicationMedicationId_5">[id number]</td><td ID="MedicationAccount_5">[id number]</td><td ID="MedicationNpid_5">[id number]</td><td ID="MedicationAuthorFirstName_5">Adrienne</td><td ID="MedicationAuthorLastName_5">Ricky</td><td ID="MedicationTaxonomyCode_5">[id number]</td><td ID="MedicationTaxonomyDesc_5">Psychiatric/Mental Health</td><td ID="MedicationPhoneNumber_5">[phone]</td> [facility] ([facility]) lamotrigine 100 MG Oral Tablet [Lamictal] Lamictal 07/25/2020 1 2:00:00 AM EDT 100 mg by mouth completed <td ID="Me dicationRxNorm_6">768704</td><td ID="MedicationMedication_6">Lamictal</td><td ID="MedicationRoute_6">by mouth</td><td ID="MedicationRouteConcept_6">C60293</td><td ID="MedicationStartDate_6">07/25/2020</td><td ID="MedicationStopDate_6">02/18/2021</td><td ID="MedicationDosageFrequency_6">once a day</td><td ID="MedicationDuration_6">30</td><td ID="MedicationFormulaStrength_6">100 mg</td><td ID="MedicationDosageForm_6">tablet</td><td ID="MedicationDosageFormCode_6"></td><td ID="MedicationDosageDescription_6"></td><td ID="MedicationMedicationId_6">[id number]</td><td ID="MedicationAccount_6">[id number]</td><td ID="MedicationNpid_6">[id number]</td><td ID="MedicationAuthorFirstName_6">Susanne</td><td ID="MedicationAuthorLastName_6">Irvin</td><td ID="MedicationTaxonomyCode_6">[id number]</td><td ID="MedicationTaxonomyDesc_6">Nurse Practitioner</td><td ID="MedicationPhoneNumber_6">[phone]</td> [facility] ([facility]) 100 mg 07/25/2020 12:00:00 AM EDT tablet 30 TAKE ONE TABLET BY MOUTH EVERY DAY TAKE ONE TABLET BY MOUTH EVERY DAY SOLD: 07/25/2020 [facility] lamotrigine 100 MG Oral Tablet [Lamictal] Lamictal 07/25/2020 1 2:00:00 AM EDT 100 mg by mouth completed <td ID="Me dicationRxNorm_4">726597</td><td ID="MedicationMedication_4">Lamictal</td><td ID="MedicationRoute_4">by mouth</td><td ID="MedicationRouteConcept_4">C66115</td><td ID="MedicationStartDate_4">07/25/2020</td><td ID="MedicationStopDate_4">02/18/2021</td><td ID="MedicationDosageFrequency_4">once a day</td><td ID="MedicationDuration_4">30</td><td ID="MedicationFormulaStrength_4">100 mg</td><td ID="MedicationDosageForm_4">tablet</td><td ID="MedicationDosageFormCode_4"></td><td ID="MedicationDosageDescription_4"></td><td ID="MedicationMedicationId_4">[id number]</td><td ID="MedicationAccount_4">[id number]</td><td ID="MedicationNpid_4">[id number]</td><td ID="MedicationAuthorFirstName_4">Susanne</td><td ID="MedicationAuthorLastName_4">Irvin</td><td ID="MedicationTaxonomyCode_4">[id number]</td><td ID="MedicationTaxonomyDesc_4">Nurse Practitioner</td><td ID="MedicationPhoneNumber_4">[phone]</td> [facility] ([facility]) lamotrigine 100 MG Oral Tablet [Lamictal] Lamictal 07/25/2020 1 2:00:00 AM EDT 100 mg by mouth completed <td ID="Me dicationRxNorm_7">445533</td><td ID="MedicationMedication_7">Lamictal</td><td ID="MedicationRoute_7">by mouth</td><td ID="MedicationRouteConcept_7">A67547</td><td ID="MedicationStartDate_7">07/25/2020</td><td ID="MedicationStopDate_7">02/18/2021</td><td ID="MedicationDosageFrequency_7">once a day</td><td ID="MedicationDuration_7">30</td><td ID="MedicationFormulaStrength_7">100 mg</td><td ID="MedicationDosageForm_7">tablet</td><td ID="MedicationDosageFormCode_7"></td><td ID="MedicationDosageDescription_7"></td><td ID="MedicationMedicationId_7">[id number]</td><td ID="MedicationAccount_7">[id number]</td><td ID="MedicationNpid_7">[id number]</td><td ID="MedicationAuthorFirstName_7">Susanne</td><td ID="MedicationAuthorLastName_7">Irvin</td><td ID="MedicationTaxonomyCode_7">[id number]</td><td ID="MedicationTaxonomyDesc_7">Nurse Practitioner</td><td ID="MedicationPhoneNumber_7">[phone]</td> [facility]) 40 mg 07/19/2020 12:00:00 AM EDT tablet 60 TAKE ONE TABLET BY MOUTH TWICE A DAY TAKE ONE TABLET BY MOUTH TWICE A DAY SOLD: 07/19/2020 [facility] ziprasidone 80 MG Oral Capsule ZIPRASIDONE HCL 07/19/2020 12:00: 00 AM EDT capsule 60 TAKE ONE CAPSULE BY MOUTH TWICE A DAY TAKE ONE CAPSULE BY MOUTH TWICE A DAY SOLD: 07/19/2020 [facility] 800 mg 07/19/2020 12:00:00 AM EDT tablet 90 TAKE ONE TABLET BY MOUTH EVERY 8 HOURS NEEDED FOR HEADACHES , MAXIMUM DAILY DOSE = 3 TAKE ONE TABLET BY MOUTH EVERY 8 HOURS NEEDED FOR HEADACHES , MAXIMUM DAILY DOSE = 3 SOLD: 07/19/2020 [facility] 40 mg 07/19/2020 12:00:00 AM EDT tablet 52 TAKE ONE TABLET BY MOUTH TWICE A DAY TAKE ONE TABLET BY MOUTH TWICE A DAY SOLD: 08/21/2020 [facility] 0.5 mg 07/19/2020 12:00:00 AM EDT tablet 30 TAKE 1 TABLET BY MOUTH EVERY DAY DIRECTED MAY TAKE AN ADDITIONAL TABLET NEEDED, MAXIMUM DAILY DOSE = 2 TABLETS TAKE 1 TABLET BY MOUTH EVERY DAY DIRE CTED MAY TAKE AN ADDITIONAL TABLET NEEDED, MAXIMUM DAILY DOSE = 2 TABLETS SOLD: 07/19/2020 [facility] buspirone hydrochloride 15 MG Oral Tablet BUSPIRONE HCL 07/19/2020 12:00:00 AM EDT tablet 60 TAKE ONE TABLET BY MOUTH TWI CE A DAY TAKE ONE TABLET BY MOUTH TWICE A DAY SOLD: 07/19/2020 [facility] 10 mg 07/05/2020 12:00:00 AM EDT tablet 30 TAKE ONE TABLET BY MOUTH EVERY DAY TAKE ONE TABLET BY MOUTH EVERY DAY SOLD: 07/17/2020 [facility] 10 mg 07/05/2020 12:00:00 AM EDT tablet 30 TAKE ONE TABLET BY MOUTH EVERY DAY TAKE ONE TABLET BY MOUTH EVERY DAY SOLD: 09/18/2020 [facility] lamotrigine 25 MG Oral Tablet [Lamictal] Lamictal 06/27/2020 12 :00:00 AM EDT 25 mg completed <td ID="Me dicationRxNorm_3">366056</td><td ID="MedicationMedication_3">Lamictal</td><td ID="MedicationRoute_3"></td><td ID="MedicationRouteConcept_3"></td><td ID="MedicationStartDate_3">06/27/2020</td><td ID="MedicationStopDate_3"></td><td ID="MedicationDosageFrequency_3"></td><td ID="MedicationDuration_3"></td><td ID="MedicationFormulaStrength_3">25 mg</td><td ID="MedicationDosageForm_3">tablet</td><td ID="MedicationDosageFormCode_3"></td><td ID="MedicationDosageDescription_3"></td><td ID="MedicationMedicationId_3">[id number]</td><td ID="MedicationAccount_3">[id number]</td><td ID="MedicationNpid_3">[id number]</td><td ID="MedicationAuthorFirstName_3">Adrienne</td><td ID="MedicationAuthorLastName_3">Ricky</td><td ID="MedicationTaxonomyCode_3">[id number]</td><td ID="MedicationTaxonomyDesc_3">Psychiatric/Mental Health</td><td ID="MedicationPhoneNumber_3">[phone]</td> [facility] ([facility]) lamotrigine 25 MG Oral Tablet [Lamictal] Lamictal 06/27/2020 12 :00:00 AM EDT 25 mg completed <td ID="Me dicationRxNorm_4">812325</td><td ID="MedicationMedication_4">Lamictal</td><td ID="MedicationRoute_4"></td><td ID="MedicationRouteConcept_4"></td><td ID="MedicationStartDate_4">06/27/2020</td><td ID="MedicationStopDate_4"></td><td ID="MedicationDosageFrequency_4"></td><td ID="MedicationDuration_4"></td><td ID="MedicationFormulaStrength_4">25 mg</td><td ID="MedicationDosageForm_4">tablet</td><td ID="MedicationDosageFormCode_4"></td><td ID="MedicationDosageDescription_4"></td><td ID="MedicationMedicationId_4">[id number]</td><td ID="MedicationAccount_4">[id number]</td><td ID="MedicationNpid_4">[id number]</td><td ID="MedicationAuthorFirstName_4">Adrienne</td><td ID="MedicationAuthorLastName_4">Ricky</td><td ID="MedicationTaxonomyCode_4">[id number]</td><td ID="MedicationTaxonomyDesc_4">Psychiatric/Mental Health</td><td ID="MedicationPhoneNumber_4">[phone]</td> [facility] ([facility]) 25 mg 06/27/2020 12:00:00 AM EDT tablet 45 TAKE ONE TABLET BY MOUTH DAILY FOR 2 WEEKS, THEN INCREASE TO 2 TABLETS BY MOUTH DAILY FOR 2 WEEKS TAKE ONE TABLET BY MOUTH DAILY FOR 2 WEEKS, THEN INCREASE TO 2 TABLETS BY MOUTH DAILY FOR 2 WEEKS SOLD: 06/29/2020 [facility] 800 mg 06/22/2020 12:00:00 AM EDT tablet 100 TAKE ONE TABLET BY MOUTH EVERY 8 HOURS NEEDED FOR HEADACHES , MAXIMUM DAILY DOSE = 3 TABLETS TAKE ONE TABLET BY MOUTH EVERY 8 HOURS NEEDED FOR HEADACHES , MAXIMUM DAILY DOSE = 3 TABLETS SOLD: 06/22/2020 [facility] ziprasidone 80 MG Oral Capsule ZIPRASIDONE HCL 06/20/2020 12:00: 00 AM EDT capsule 60 TAKE ONE CAPSULE BY MOUTH TWO TI MES A DAY TAKE ONE CAPSULE BY MOUTH TWO TIMES A DAY SOLD: 06/20/2020 [facility] 400 mg 06/20/2020 12:00:00 AM EDT capsule 90 TAKE ONE CAPSULE BY MOUTH THREE TIMES A DAY TAKE ONE CAPSULE BY MOUTH THREE TIMES A DAY SOLD: 11/28/2020 [facility] ziprasidone 80 MG Oral Capsule ziprasidone HCl 06/20/2020 12:00:00 AM EDT 80 mg by mouth completed <td ID="Me dicationRxNorm_5">056907</td><td ID="MedicationMedication_5">ziprasidone HCl</td><td ID="MedicationRoute_5">by mouth</td><td ID="MedicationRouteConcept_5">S65984</td><td ID="MedicationStartDate_5">06/20/2020</td><td ID="MedicationStopDate_5">09/23/2020</td><td ID="MedicationDosageFrequency_5">twice a day</td><td ID="MedicationDuration_5">30</td><td ID="MedicationFormulaStrength_5">80 mg</td><td ID="MedicationDosageForm_5">capsule</td><td ID="MedicationDosageFormCode_5"></td><td ID="MedicationDosageDescription_5"></td><td ID="MedicationMedicationId_5">[id number]</td><td ID="MedicationAccount_5">[id number]</td><td ID="MedicationNpid_5">[id number]</td><td ID="MedicationAuthorFirstName_5">Adrienne</td><td ID="MedicationAuthorLastName_5">[place]</td><td ID="MedicationTaxonomyCode_5">[id number]</td><td ID="MedicationTaxonomyDesc_5">Psychiatric/Mental Health</td><td ID="MedicationPhoneNumber_5">[phone]</td> [facility] ([facility] 400 mg 06/20/2020 12:00:00 AM EDT capsule 90 TAKE ONE CAPSULE BY MOUTH THREE TIMES A DAY TAKE ONE CAPSULE BY MOUTH THREE TIMES A DAY SOLD: 07/25/2020 [facility] 400 mg 06/20/2020 12:00:00 AM EDT capsule 90 TAKE ONE CAPSULE BY MOUTH THREE TIMES A DAY TAKE ONE CAPSULE BY MOUTH THREE TIMES A DAY SOLD: 06/20/2020 [facility] 0.5 mg 06/20/2020 12:00:00 AM EDT tablet 45 TAKE ONE TABLET BY MOUTH ONCE A DAY DIRECTED. MAY TAKE ONE ADDITIONAL TABLET NEEDED MAXIMUM DAILY DOSE = 2 TABLETS TAKE ONE TABLET BY MOUTH ONCE A DAY D IRECTED. MAY TAKE ONE ADDITIONAL TABLET NEEDED MAXIMUM DAILY DOSE = 2 TABLETS SOLD: 06/20/2020 [facility] Clonazepam 0.5 MG Oral Tablet clonazepam 05/26/2020 12:00:00 AM EDT 0.5 mg by mouth completed <td ID="Medica tionRxNorm_4">050721</td><td ID="MedicationMedication_4">clonazepam</td><td ID="MedicationRoute_4">by mouth</td><td ID="MedicationRouteConcept_4">Y67172</td><td ID="MedicationStartDate_4">05/26/2020</td><td ID="MedicationStopDate_4">08/17/2020</td><td ID="MedicationDosageFrequency_4">once a day</td><td ID="MedicationDuration_4">30</td><td ID="MedicationFormulaStrength_4">0.5 mg</td><td ID="MedicationDosageForm_4">tablet</td><td ID="MedicationDosageFormCode_4"></td><td ID="MedicationDosageDescription_4">as directed</td><td ID="MedicationMedicationId_4">[id number]</td><td ID="MedicationAccount_4">[id number]</td><td ID="MedicationNpid_4">[id number]</td><td ID="MedicationAuthorFirstName_4">Susanne</td><td ID="MedicationAuthorLastName_4">Irvin</td><td ID="MedicationTaxonomyCode_4">[id number]</td><td ID="MedicationTaxonomyDesc_4">Nurse Practitioner</td><td ID="MedicationPhoneNumber_4">[phone]</td> [facility] ([facility]) 40 mg 05/24/2020 12:00:00 AM EDT tablet 60 TAKE ONE TABLET BY MOUTH TWICE A DAY TAKE ONE TABLET BY MOUTH TWICE A DAY SOLD: 06/22/2020 [facility] 500 mg 05/24/2020 12:00:00 AM EDT tablet extended release 24 hr 120 TAKE TWO TABLETS BY MOUTH TWICE A DAY TAKE TWO TABLETS BY MOUTH TWICE A DAY SOLD: 07/17/2020 [facility] buspirone hydrochloride 15 MG Oral Tablet BUSPIRONE HCL 05/23/2020 12:00:00 AM EDT tablet 60 TAKE ONE TABLET BY MOUTH TWI CE A DAY TAKE ONE TABLET BY MOUTH TWICE A DAY SOLD: 06/22/2020 [facility] Fenofibrate 134 MG Oral Capsule FENOFIBRATE,MICRONIZED 05/20 12:00:00 AM EDT capsule 30 TAKE ONE CAPSULE BY MOUTH EV NAI DAY TAKE ONE CAPSULE BY MOUTH EVERY DAY SOLD: 06/19/2020 [facility] Fenofibrate 134 MG Oral Capsule FENOFIBRATE,MICRONIZED 05/20 12:00:00 AM EDT capsule 30 TAKE ONE CAPSULE BY MOUTH EV NAI DAY TAKE ONE CAPSULE BY MOUTH EVERY DAY SOLD: 07/19/2020 [facility] Fenofibrate 134 MG Oral Capsule FENOFIBRATE,MICRONIZED 05/20 12:00:00 AM EDT capsule 30 TAKE ONE CAPSULE BY MOUTH EV NAI DAY TAKE ONE CAPSULE BY MOUTH EVERY DAY SOLD: 08/17/2020 [facility] Mirtazapine 15 MG Oral Tablet mirtazapine 05/01/2020 12:00:00 AM EDT 15 mg completed <td ID="Medicat ionRxNorm_5">632106</td><td ID="MedicationMedication_5">mirtazapine</td><td ID="MedicationRoute_5"></td><td ID="MedicationRouteConcept_5"></td><td ID="MedicationStartDate_5">05/01/2020</td><td ID="MedicationStopDate_5">06/30/2020</td><td ID="MedicationDosageFrequency_5">at bedtime</td><td ID="MedicationDuration_5">30</td><td ID="MedicationFormulaStrength_5">15 mg</td><td ID="MedicationDosageForm_5">tablet</td><td ID="MedicationDosageFormCode_5"></td><td ID="MedicationDosageDescription_5"></td><td ID="MedicationMedicationId_5">[id number]</td><td ID="MedicationAccount_5">[id number]</td><td ID="MedicationNpid_5">[id number]</td><td ID="MedicationAuthorFirstName_5">Adrienne</td><td ID="MedicationAuthorLastName_5">[place]</td><td ID="MedicationTaxonomyCode_5">[id number]</td><td ID="MedicationTaxonomyDesc_5">Psychiatric/Mental Health</td><td ID="MedicationPhoneNumber_5">[phone]</td> [facility] ([facility]) ziprasidone 80 MG Oral Capsule ziprasidone HCl 04/24/2020 12:00:00 AM EDT 80 mg completed <td ID="Me dicationRxNorm_4">053597</td><td ID="MedicationMedication_4">ziprasidone HCl</td><td ID="MedicationRoute_4"></td><td ID="MedicationRouteConcept_4"></td><td ID="MedicationStartDate_4">04/24/2020</td><td ID="MedicationStopDate_4">06/19/2020</td><td ID="MedicationDosageFrequency_4">twice a day</td><td ID="MedicationDuration_4">30</td><td ID="MedicationFormulaStrength_4">80 mg</td><td ID="MedicationDosageForm_4">capsule</td><td ID="MedicationDosageFormCode_4"></td><td ID="MedicationDosageDescription_4"></td><td ID="MedicationMedicationId_4">[id number]</td><td ID="MedicationAccount_4">[id number]</td><td ID="MedicationNpid_4">[id number]</td><td ID="MedicationAuthorFirstName_4">Adrienne</td><td ID="MedicationAuthorLastName_4">Ricky</td><td ID="MedicationTaxonomyCode_4">[id number]</td><td ID="MedicationTaxonomyDesc_4">Psychiatric/Mental Health</td><td ID="MedicationPhoneNumber_4">[phone]</td> [facility] ([facility]) 25 mcg 04/21/2020 12:00:00 AM EDT tablet 30 TAKE ONE TABLET BY MOUTH EVERY MORNING ON AN EMPTY STOMACH TAKE ONE TABLET BY MOUTH EVERY MORNING O N AN EMPTY STOMACH SOLD: 06/19/2020 [facility] 25 mcg 04/21/2020 12:00:00 AM EDT tablet 30 TAKE ONE TABLET BY MOUTH EVERY MORNING ON AN EMPTY STOMACH TAKE ONE TABLET BY MOUTH EVERY MORNING O N AN EMPTY STOMACH SOLD: 07/20/2020 [facility] 40 mg 04/17/2020 12:00:00 AM EDT capsule,delayed release (DR/EC) 30 TAKE ONE CAPSULE BY MOUTH EVERY MORNING ON AN EMPTY STOMACH - AT LEAST 30 MINUTES BEFORE BREAKFAST TAKE ONE CAPSULE BY MOUTH EVERY MORNING ON AN EMPTY STOMACH - AT LEAST 30 MINUTES BEFORE BREAKFAST SOLD: 07/17/2020 [facility] 40 mg 04/17/2020 12:00:00 AM EDT capsule,delayed release (DR/EC) 30 TAKE ONE CAPSULE BY MOUTH EVERY MORNING ON AN EMPTY STOMACH - AT LEAST 30 MINUTES BEFORE BREAKFAST TAKE ONE CAPSULE BY MOUTH EVERY MORNING ON AN EMPTY STOMACH - AT LEAST 30 MINUTES BEFORE BREAKFAST SOLD: 06/19/2020 [facility] 45 mg 03/31/2020 12:00:00 AM EDT tablet 30 TAKE ONE TABLET BY MOUTH AT BEDTIME TAKE ONE TABLET BY MOUTH AT BEDTIME SOLD: 06/19/2020 [facility] Fenofibrate 134 MG Oral Capsule FENOFIBRATE,MICRONIZED 03/20 12:00:00 AM EDT capsule 30 TAKE ONE CAPSULE BY MOUTH EV NAI DAY TAKE ONE CAPSULE BY MOUTH EVERY DAY SOLD: 01/15/2021 [facility] Fenofibrate 134 MG Oral Capsule FENOFIBRATE,MICRONIZED 03/20 12:00:00 AM EDT capsule 30 TAKE ONE CAPSULE BY MOUTH EV NAI DAY TAKE ONE CAPSULE BY MOUTH EVERY DAY SOLD: 02/22/2021 [facility] gabapentin 400 MG Oral Capsule gabapentin 03/13/2020 12:00:00 AM EDT 400 mg by mouth completed <td ID="Medica tionRxNorm_7">997982</td><td ID="MedicationMedication_7">gabapentin</td><td ID="MedicationRoute_7">by mouth</td><td ID="MedicationRouteConcept_7">I93702</td><td ID="MedicationStartDate_7">03/13/2020</td><td ID="MedicationStopDate_7">07/04/2021</td><td ID="MedicationDosageFrequency_7">three times a day</td><td ID="MedicationDuration_7">30</td><td ID="MedicationFormulaStrength_7">400 mg</td><td ID="MedicationDosageForm_7">capsule</td><td ID="MedicationDosageFormCode_7"></td><td ID="MedicationDosageDescription_7"> </td><td ID="MedicationMedicationId_7">[id number]</td><td ID="MedicationAccount_7">[id number]</td><td ID="MedicationNpid_7">[id number]</td><td ID="MedicationAuthorFirstName_7">Susanne</td><td ID="MedicationAuthorLastName_7">Irvin</td><td ID="MedicationTaxonomyCode_7">[id number]</td><td ID="MedicationTaxonomyDesc_7">Nurse Practitioner</td><td ID="MedicationPhoneNumber_7">[phone]</td> [facility] ([facility]) gabapentin 400 MG Oral Capsule gabapentin 03/13/2020 12:00:00 AM EDT 400 mg by mouth completed <td ID="Medica tionRxNorm_3">[id number]</td><td ID="MedicationMedication_3">gabapentin</td><td ID="MedicationRoute_3">by mouth</td><td ID="MedicationRouteConcept_3">[id number]</td><td ID="MedicationStartDate_3">03/13/2020</td><td ID="MedicationStopDate_3">07/04/2021</td><td ID="MedicationDosageFrequency_3">three times a day</td><td ID="MedicationDuration_3">30</td><td ID="MedicationFormulaStrength_3">400 mg</td><td ID="MedicationDosageForm_3">capsule</td><td ID="MedicationDosageFormCode_3"></td><td ID="MedicationDosageDescription_3"> </td><td ID="MedicationMedicationId_3">[id number]</td><td ID="MedicationAccount_3">[id number]</td><td ID="MedicationNpid_3">[id number]</td><td ID="MedicationAuthorFirstName_3">Susanne</td><td ID="MedicationAuthorLastName_3">Irvin</td><td ID="MedicationTaxonomyCode_3">[id number]</td><td ID="MedicationTaxonomyDesc_3">Nurse Practitioner</td><td ID="MedicationPhoneNumber_3">[phone]</td> [facility] ([facility]) 8.6 mg 02/22/2020 12:00:00 AM EDT tablet 60 TAKE TWO TABLETS BY MOUTH AT BEDTIME TAKE TWO TABLETS BY MOUTH AT BEDTIME SOLD: 06/23/2020 [facility] 8.6 mg 02/22/2020 12:00:00 AM EDT tablet 60 TAKE TWO TABLETS BY MOUTH AT BEDTIME TAKE TWO TABLETS BY MOUTH AT BEDTIME SOLD: 10/14/2020 [facility] 8.6 mg 02/22/2020 12:00:00 AM EDT tablet 60 TAKE TWO TABLETS BY MOUTH AT BEDTIME TAKE TWO TABLETS BY MOUTH AT BEDTIME SOLD: 09/18/2020 [facility] Propranolol Hydrochloride 40 MG Oral Tablet propranolol 02/03/2020 12:00:00 AM EDT 40 mg by mouth completed <td ID="MedicationRxNorm_6">[id number]</td><td ID="MedicationMedication_6">propranolol</td><td ID="MedicationRoute_6">by mouth</td><td ID="MedicationRouteConcept_6">P81852</td><td ID="MedicationStartDate_6">02/03/2020</td><td ID="MedicationStopDate_6">10/23/2020</td><td ID="MedicationDosageFrequency_6">twice a day</td><td ID="MedicationDuration_6">30</td><td ID="MedicationFormulaStrength_6">40 mg</td><td ID="MedicationDosageForm_6">tablet</td><td ID="MedicationDosageFormCode_6"></td><td ID="MedicationDosageDescription_6"></td><td ID="MedicationMedicationId_6">[id number]</td><td ID="MedicationAccount_6">[id number]</td><td ID="MedicationNpid_6">[id number]</td><td ID="MedicationAuthorFirstName_6">Adrienne</td><td ID="MedicationAuthorLastName_6">Ricky</td><td ID="MedicationTaxonomyCode_6">[id number]</td><td ID="MedicationTaxonomyDesc_6">Psychiatric/Mental Health</td><td ID="MedicationPhoneNumber_6">[phone]</td> [facility] ([facility]) Propranolol Hydrochloride 40 MG Oral Tablet propranolol 02/03/2020 12:00:00 AM EDT 40 mg by mouth completed <td ID="MedicationRxNorm_7">[id number]</td><td ID="MedicationMedication_7">propranolol</td><td ID="MedicationRoute_7">by mouth</td><td ID="MedicationRouteConcept_7">[id number]</td><td ID="MedicationStartDate_7">02/03/2020</td><td ID="MedicationStopDate_7">10/23/2020</td><td ID="MedicationDosageFrequency_7">twice a day</td><td ID="MedicationDuration_7">30</td><td ID="MedicationFormulaStrength_7">40 mg</td><td ID="MedicationDosageForm_7">tablet</td><td ID="MedicationDosageFormCode_7"></td><td ID="MedicationDosageDescription_7"></td><td ID="MedicationMedicationId_7">[id number]</td><td ID="MedicationAccount_7">[id number]</td><td ID="MedicationNpid_7">[id number]</td><td ID="MedicationAuthorFirstName_7">Adrienne</td><td ID="MedicationAuthorLastName_7">[place]</td><td ID="MedicationTaxonomyCode_7">[id number]</td><td ID="MedicationTaxonomyDesc_7">Psychiatric/Mental Health</td><td ID="MedicationPhoneNumber_7">[phone]</td> [facility] ([facility]) 31 gauge x 5/16" 01/26/2020 12:00:00 AM EDT needle 30 USE DIRECTED ONCE DAILY USE DIRECTED ONCE DAILY SOLD: 09/26/2020 [facility] 31 gauge x 5/16" 01/26/2020 12:00:00 AM EDT needle 30 USE DIRECTED ONCE DAILY USE DIRECTED ONCE DAILY SOLD: 11/03/2020 [facility] 31 gauge x 5/16" 01/26/2020 12:00:00 AM EDT needle 30 USE DIRECTED ONCE DAILY USE DIRECTED ONCE DAILY SOLD: 12/05/2020 [facility] 31 gauge x 5/16" 01/26/2020 12:00:00 AM EDT needle 30 USE DIRECTED ONCE DAILY USE DIRECTED ONCE DAILY SOLD: 01/15/2021 [facility] BLOOD SUGAR DIAGNOSTIC 09/01/2019 12:00:00 AM EST strip 100 CHECK BLOOD GLUCOSE ONCE DAILY AND NEEDED UP TO THREE TIMES A DAY CHECK BLOOD GLUCOSE ONCE DAILY AND NEEDED UP TO THREE TIMES A DAY SOLD: 06/23/2020 [facility] Ketoconazole 20 MG/ML Medicated Shampoo ketoconazole 2 % shampoo ketoconazole 2 % shampoo completed ketoconazole 20 MG/ML Medicated Shampoo [facility] ([facility]) buspirone hydrochloride 10 MG Oral Tablet buspirone 10 mg tablet buspirone 10 mg tablet completed buspirone hydr ochloride 10 MG Oral Tablet [place] ([facility]) Ketoconazole 20 MG/ML Medicated Shampoo ketoconazole 2 % shampoo ketoconazole 2 % shampoo completed ketoconazole 20 MG/ML Medicated Shampoo [place] ([facility]) buspirone hydrochloride 10 MG Oral Tablet buspirone 10 mg tablet buspirone 10 mg tablet completed buspirone hydr ochloride 10 MG Oral Tablet [place] ([facility]) Clonidine Hydrochloride 0.2 MG Oral Tablet clonidine H Cl 0.2 mg tablet clonidine HCl 0.2 mg tablet completed clonidine hydrochloride 0.2 MG Oral Tablet [place] ([facility]) Propranolol Hydrochloride 20 MG Oral Tablet propranolo l 20 mg tablet propranolol 20 mg tablet completed propranolol hydrochloride 20 MG Oral Tablet [place] ([facility]) Isopropyl Alcohol 0.7 ML/ML Medicated Pad Alcohol Prep Pads Alco hol Prep Pads completed isopropyl alco hol 0.7 ML/ML Medicated Pad [place] ([facility]) Docusate Sodium 100 MG Oral Capsule [DOK] DOK 100 mg capsule DOK 100 mg capsule completed docusate sodiu m 100 MG Oral Capsule [DOK] [place] ([facility]) Triamcinolone Acetonide 1 MG/ML Topical Cream triamcinolone acetonide 0.1 % topical cream triamcinolone acetonide 0.1 % topical cream completed triamcinolone acetonide 1 MG/ML Topical Cream [place] ([facility]) 0.5 ML dulaglutide 1.5 MG/ML Auto-Inject or [Trulicity] Trulicity 0.75 mg/0.5 mL subcutaneous pen injector Trulicity 0.75 mg/0.5 mL subcutaneous pen injector completed 0.5 ML dulaglu tide 1.5 MG/ML Auto-Injector [Trulicity] [place] ([facility]) Famotidine 20 MG Oral Tablet famotidine 20 mg tablet famotidine 20 mg tablet completed famotidine 20 MG Oral Tablet [place] ([facility]) Cephalexin 500 MG Oral Capsule cephalexin 500 mg capsu le cephalexin 500 mg capsule completed cephalexin 500 MG Oral Capsule [place] ([facility]) lamotrigine 100 MG Oral Tablet lamotrigi ne 100 mg tablet TAKE ONE TABLET BY MOUTH ONCE DAILY lamotrigine 100 mg tablet TAKE ONE TABLET BY MOUTH ONC E DAILY completed lamotrigine 10 0 MG Oral Tablet [place] ([facility]) Mirtazapine 15 MG Oral Tablet mirtazapine 15 mg tablet derrick zapine 15 mg tablet completed mirtazapine 15 MG Oral Tablet [place] ([facility]) Azithromycin 250 MG Oral Tablet azithromycin 250 mg ta blet azithromycin 250 mg tablet completed azithromycin 25 0 MG Oral Tablet [place] ([facility]) Famotidine 20 MG Oral Tablet famotidine 20 mg tablet famotidine 20 mg tablet completed famotidine 20 MG Oral Tablet [place] ([facility]) Docusate Sodium 100 MG Oral Capsule [DOK] DOK 100 mg capsule DOK 100 mg capsule completed docusate sodiu m 100 MG Oral Capsule [DOK] [place] ([facility]) Mirtazapine 15 MG Oral Tablet mirtazapine 15 mg tablet derrick zapine 15 mg tablet completed mirtazapine 15 MG Oral Tablet [place] ([facility]) OneTouch Verio Flex Meter [id number] compl eted OneTouch Verio Flex Meter [facility] er) cefdinir 300 MG Oral Capsule cefdinir 300 mg capsule cefdinir 30 0 mg capsule completed cefdinir 300 M G Oral Capsule [place] ([facility]) Mirtazapine 45 MG Oral Tablet mirtazapine 45 mg tablet derrick zapine 45 mg tablet completed mirtazapine 45 MG Oral Tablet [facility]) Triamcinolone Acetonide 1 MG/ML Topical Cream triamcinolone acetonide 0.1 % topical cream triamcinolone acetonide 0.1 % topical cream completed triamcinolone acetonide 1 MG/ML Topical Cream [place] ([facility]) Azithromycin 250 MG Oral Tablet azithromycin 250 mg ta blet azithromycin 250 mg tablet completed azithromycin 25 0 MG Oral Tablet [facility] ([facility]) Amitriptyline Hydrochloride 50 MG Oral Tablet amitript yline 50 mg tablet amitriptyline 50 mg tablet completed amitriptyline hydrochloride 50 MG Oral Tablet [facility] ([facility]) buspirone hydrochloride 15 MG Oral Table t buspirone 15 mg tablet TAKE ONE TABLET BY MOUTH THREE TIMES A DAY buspirone 15 mg tablet TAKE ONE TABLET B Y MOUTH THREE TIMES A DAY completed buspirone hydrochloride 15 MG Oral Tablet [facility] ([facility]) Propranolol Hydrochloride 20 MG Oral Tablet propranolo l 20 mg tablet propranolol 20 mg tablet completed propranolol hydrochloride 20 MG Oral Tablet [facility] ([facility]) 0.5 ML dulaglutide 1.5 MG/ML Auto-Inject or [Trulicity] Trulicity 0.75 mg/0.5 mL subcutaneous pen injector Trulicity 0.75 mg/0.5 mL subcutaneous pen injector completed 0.5 ML dulaglu tide 1.5 MG/ML Auto-Injector [Trulicity] [place] ([facility]) Clonazepam 0.5 MG Oral Tablet clonazepam 0.5 mg tablet TAKE ONE TABLET BY MOUTH NEEDED FOR 3 DAYS THEN ONE HALF TABLET UNTIL FINISHED MAXIMUM DAILY DOSE ONE TABLET clonazepam 0.5 mg tablet TAKE ONE TABLET BY MOUTH NEEDED FOR 3 DAYS THEN ONE HALF TABLET UNTIL FINISHED MAXIMUM DAILY DOSE ONE TABLET completed clonazepam 0.5 MG Or al Tablet [facility] ([facility]) sennosides, FPC 8.6 MG Oral Tablet [Senna-Time] senna 8.6 mg tablet senna 8.6 mg tablet completed sennosi azam, [facility]PC 8.6 MG Oral Tablet [Senna-Time] [facility] ([facility]) 0.5 ML dulaglutide 1.5 MG/ML Auto-Inject or [Trulicity] Trulicity 0.75 mg/0.5 mL subcutaneous pen injector Trulicity 0.75 mg/0.5 mL subcutaneous pen injector completed 0.5 ML dulaglu tide 1.5 MG/ML Auto-Injector [Trulicity] [place] ([facility]) ziprasidone 60 MG Oral Capsule ziprasidone 60 mg capsu le ziprasidone 60 mg capsule completed ziprasidone 60 MG Oral Capsule [place] ([facility]) Mirtazapine 45 MG Oral Tablet mirtazapine 45 mg tablet derrick zapine 45 mg tablet completed mirtazapine 45 MG Oral Tablet [place] ([facility]) benzonatate 200 MG Oral Capsule benzonatate 200 mg cap [place] benzonatate 200 mg capsule completed benzonatate 20 0 MG Oral Capsule [place] ([facility]) Triamcinolone Acetonide 1 MG/ML Topical Cream triamcinolone acetonide 0.1 % topical cream triamcinolone acetonide 0.1 % topical cream completed triamcinolone acetonide 1 MG/ML Topical Cream [place] ([facility]) Ketoconazole 20 MG/ML Medicated Shampoo ketoconazole 2 % shampoo ketoconazole 2 % shampoo completed ketoconazole 20 MG/ML Medicated Shampoo [place] ([facility]) ziprasidone 60 MG Oral Capsule ziprasidone 60 mg capsu le ziprasidone 60 mg capsule completed ziprasidone 60 MG Oral Capsule [place] ([facility]) sennosides, FPC 8.6 MG Oral Tablet [Senna-Time] senna 8.6 mg tablet senna 8.6 mg tablet completed sennosi azam, FPC 8.6 MG Oral Tablet [Senna-Time] [place] ([facility]) buspirone hydrochloride 7.5 MG Oral Tablet buspirone 7 .5 mg tablet buspirone 7.5 mg tablet completed buspirone h ydrochloride 7.5 MG Oral Tablet [place] ([facility]) benztropine mesylate 0.5 MG Oral Tablet benztropine 0. 5 mg tablet benztropine 0.5 mg tablet completed benztrop ine mesylate 0.5 MG Oral Tablet [facility]) Prazosin 1 MG Oral Capsule prazosin 1 mg capsule prazosin 1 mg capsule completed prazosin 1 MG Oral Capsul e [facility] ([facility]) BD Ultra-Fine Short Pen Needle 31 gauge x 5/16" USE DIRECTED ONCE DAILY [id number] completed BD Ultr a-Fine Short Pen Needle 31 gauge x 5/16" [place] ([facility]) Ketoconazole 20 MG/ML Medicated Shampoo ketoconazole 2 % shampoo ketoconazole 2 % shampoo completed ketoconazole 20 MG/ML Medicated Shampoo [place] ([facility]) Mirtazapine 45 MG Oral Tablet mirtazapine 45 mg tablet derrick zapine 45 mg tablet completed mirtazapine 45 MG Oral Tablet [place] ([facility]) Azithromycin 250 MG Oral Tablet azithromycin 250 mg ta blet azithromycin 250 mg tablet completed azithromycin 25 0 MG Oral Tablet [place] ([facility]) lamotrigine 25 MG Oral Tablet lamotrigine 25 mg tablet lamot rigine 25 mg tablet completed lamotrigine 25 MG Oral Tablet [place] ([facility]) Isopropyl Alcohol 0.7 ML/ML Medicated Pad Alcohol Prep Pads Alco hol Prep Pads completed isopropyl alco hol 0.7 ML/ML Medicated Pad [place] ([facility]) Ergocalciferol 23097 UNT Oral Capsule Vi tamin D2 1,250 mcg (50,000 unit) capsule Vitamin D2 1,250 mcg (50,000 unit) capsule completed ergocalciferol 1.25 MG Oral Capsule [place] ([facility]) buspirone hydrochloride 7.5 MG Oral Tablet buspirone 7 .5 mg tablet buspirone 7.5 mg tablet completed buspirone h ydrochloride 7.5 MG Oral Tablet [place] ([facility]) Propranolol Hydrochloride 20 MG Oral Tablet propranolo l 20 mg tablet propranolol 20 mg tablet completed propranolol hydrochloride 20 MG Oral Tablet [place] ([facility]) cefdinir 300 MG Oral Capsule cefdinir 300 mg capsule cefdinir 30 0 mg capsule completed cefdinir 300 M G Oral Capsule [place] ([facility]) buspirone hydrochloride 7.5 MG Oral Tablet buspirone 7 .5 mg tablet buspirone 7.5 mg tablet completed buspirone h ydrochloride 7.5 MG Oral Tablet [place] ([facility]) Mirtazapine 15 MG Oral Tablet mirtazapine 15 mg tablet derrick zapine 15 mg tablet completed mirtazapine 15 MG Oral Tablet [place] ([facility]) Clonazepam 0.5 MG Disintegrating Oral Ta blet clonazepam 0.5 mg disintegrating tablet clonazepam 0.5 mg disintegrating tablet completed clonazepam 0.5 MG Disintegrating Oral Tablet [place] ([facility]) Clonidine Hydrochloride 0.2 MG Oral Tablet clonidine H Cl 0.2 mg tablet clonidine HCl 0.2 mg tablet completed clonidine hydrochloride 0.2 MG Oral Tablet [place] ([facility]) Azithromycin 250 MG Oral Tablet azithromycin 250 mg ta blet azithromycin 250 mg tablet completed azithromycin 25 0 MG Oral Tablet [place] ([facility]) Docusate Sodium 100 MG Oral Capsule [DOK] DOK 100 mg capsule DOK 100 mg capsule completed docusate sodiu m 100 MG Oral Capsule [DOK] [facility]) benzonatate 200 MG Oral Capsule benzonatate 200 mg cap kenya benzonatate 200 mg capsule completed benzonatate 20 0 MG Oral Capsule [facility]) 0.5 ML dulaglutide 1.5 MG/ML Auto-Inject or [Trulicity] Trulicity 0.75 mg/0.5 mL subcutaneous pen injector Trulicity 0.75 mg/0.5 mL subcutaneous pen injector completed 0.5 ML dulaglu tide 1.5 MG/ML Auto-Injector [Trulicity] [place] ([facility]) ziprasidone 60 MG Oral Capsule ziprasidone 60 mg capsu le ziprasidone 60 mg capsule completed ziprasidone 60 MG Oral Capsule [place] ([facility]) Amitriptyline Hydrochloride 50 MG Oral Tablet amitript yline 50 mg tablet amitriptyline 50 mg tablet completed amitriptyline hydrochloride 50 MG Oral Tablet [place] ([facility]) benztropine mesylate 0.5 MG Oral Tablet benztropine 0. 5 mg tablet benztropine 0.5 mg tablet completed benztrop ine mesylate 0.5 MG Oral Tablet [facility]) benzonatate 200 MG Oral Capsule benzonatate 200 mg cap kenya benzonatate 200 mg capsule completed benzonatate 20 0 MG Oral Capsule [facility]) sennosides 8.6 mg-docusate sodium 50 mg capsule Take 2 capsules by oral route at bedtime. [id number] 2 capsule(s) completed docusate sodium 50 MG / sennosides, FPC 8.6 MG Oral Capsule [facility] ([facility]) buspirone hydrochloride 7.5 MG Oral Tablet buspirone 7 .5 mg tablet buspirone 7.5 mg tablet completed buspirone h ydrochloride 7.5 MG Oral Tablet [facility] ([facility]) Clonidine Hydrochloride 0.2 MG Oral Tablet clonidine H Cl 0.2 mg tablet clonidine HCl 0.2 mg tablet completed clonidine hydrochloride 0.2 MG Oral Tablet [facility] ([facility]) Azithromycin 250 MG Oral Tablet azithromycin 250 mg ta blet azithromycin 250 mg tablet completed azithromycin 25 0 MG Oral Tablet [facility] ([facility]) sennosides 8.6 mg-docusate sodium 50 mg capsule Take 2 capsules by oral route at bedtime. [id number] 2 capsule(s) completed docusate sodium 50 MG / sennosides, FPC 8.6 MG Oral Capsule [facility] ([facility]) buspirone hydrochloride 10 MG Oral Tablet buspirone 10 mg tablet buspirone 10 mg tablet completed buspirone hydr ochloride 10 MG Oral Tablet [facility] ([facility]) Propranolol Hydrochloride 20 MG Oral Tablet propranolo l 20 mg tablet propranolol 20 mg tablet completed propranolol hydrochloride 20 MG Oral Tablet [facility] ([facility]) Amitriptyline Hydrochloride 50 MG Oral Tablet amitript yline 50 mg tablet amitriptyline 50 mg tablet completed amitriptyline hydrochloride 50 MG Oral Tablet [facility] ([facility]) cefdinir 300 MG Oral Capsule cefdinir 300 mg capsule cefdinir 30 0 mg capsule completed cefdinir 300 M G Oral Capsule [facility] ([facility]) benzonatate 200 MG Oral Capsule benzonatate 200 mg cap kenya benzonatate 200 mg capsule completed benzonatate 20 0 MG Oral Capsule [facility] ([facility]) Mirtazapine 15 MG Oral Tablet mirtazapine 15 mg tablet derrick zapine 15 mg tablet completed mirtazapine 15 MG Oral Tablet [facility] ([facility]) Famotidine 20 MG Oral Tablet famotidine 20 mg tablet famotidine 20 mg tablet completed famotidine 20 MG Oral Tablet [facility] ([facility]) benzonatate 200 MG Oral Capsule benzonatate 200 mg cap [place] benzonatate 200 mg capsule completed benzonatate 20 0 MG Oral Capsule [facility] ([facility]) sennosides 8.6 mg-docusate sodium 50 mg capsule Take 2 capsules by oral route at bedtime. [id number] 2 capsule(s) completed docusate sodium 50 MG / sennosides, FPC 8.6 MG Oral Capsule [facility] ([facility]) Steglatro 5 mg tablet [id number] completed ertugliflozin 5 MG Oral Tablet [Steglatro] [place] ([facility]) Simvastatin 10 MG Oral Tablet simvastati n 10 mg tablet TAKE ONE TABLET BY MOUTH EVERY DAY simvastatin 10 mg tablet TAKE ONE TABLET BY MOUTH EVERY DAY completed simvastatin 10 MG Oral Table t [place] ([facility]) benztropine mesylate 0.5 MG Oral Tablet benztropine 0. 5 mg tablet benztropine 0.5 mg tablet completed benztrop ine mesylate 0.5 MG Oral Tablet [place] ([facility]) Docusate Sodium 100 MG Oral Capsule [DOK] DOK 100 mg capsule DOK 100 mg capsule completed docusate sodiu m 100 MG Oral Capsule [DOK] [place] ([facility]) 0.5 ML dulaglutide 1.5 MG/ML Auto-Inject or [Trulicity] Trulicity 0.75 mg/0.5 mL subcutaneous pen injector Trulicity 0.75 mg/0.5 mL subcutaneous pen injector completed 0.5 ML dulaglu tide 1.5 MG/ML Auto-Injector [Trulicity] [place] ([facility]) Docusate Sodium 50 MG / sennosides, FPC 8.6 MG Oral Tablet sennosides 8.6 mg- docusate sodium 50 mg tablet Take 2 tablets by oral route at bedtime. sennosides 8.6 mg-docusate sodium 50 mg tablet Take 2 tablets by oral route at bedtime. 2 completed docusate sodiu m 50 MG / sennosides, FPC 8.6 MG Oral Tablet [facility] ([facility]) Amitriptyline Hydrochloride 50 MG Oral Tablet amitript yline 50 mg tablet amitriptyline 50 mg tablet completed amitriptyline hydrochloride 50 MG Oral Tablet [facility] ([facility]) sennosides 8.6 mg-docusate sodium 50 mg capsule Take 2 capsules by oral route at bedtime. [id number] 2 capsule(s) completed docusate sodium 50 MG / sennosides, FPC 8.6 MG Oral Capsule [facility] ([facility]) Clindamycin 150 MG Oral Capsule clindamycin HCl 150 mg capsule clindamycin HCl 150 mg capsule completed clindam ycin 150 MG Oral Capsule [facility] ([facility]) 0.5 ML dulaglutide 1.5 MG/ML Auto-Inject or [Trulicity] Trulicity 0.75 mg/0.5 mL subcutaneous pen injector Trulicity 0.75 mg/0.5 mL subcutaneous pen injector completed 0.5 ML dulaglu tide 1.5 MG/ML Auto-Injector [Trulicity] [facility] ([facility]) buspirone hydrochloride 10 MG Oral Tablet buspirone 10 mg tablet buspirone 10 mg tablet completed buspirone hydr ochloride 10 MG Oral Tablet [facility] ([facility]) Famotidine 20 MG Oral Tablet famotidine 20 mg tablet famotidine 20 mg tablet completed famotidine 20 MG Oral Tablet [facility] ([facility]) Clindamycin 150 MG Oral Capsule clindamycin HCl 150 mg capsule clindamycin HCl 150 mg capsule completed clindam ycin 150 MG Oral Capsule [facility] ([facility]) Triamcinolone Acetonide 1 MG/ML Topical Cream triamcinolone acetonide 0.1 % topical cream triamcinolone acetonide 0.1 % topical cream completed triamcinolone acetonide 1 MG/ML Topical Cream [facility] ([facility]) Trazodone Hydrochloride 50 MG Oral Table t trazodone 50 mg tablet TAKE ONE TABLET BY MOUTH EVERY DAY AT BEDTIME trazodone 50 mg tablet TAKE ONE TABLET B Y MOUTH EVERY DAY AT BEDTIME completed trazodone hydrochloride 50 MG Oral Tablet [facility] ([facility]) Propranolol Hydrochloride 20 MG Oral Tablet propranolo l 20 mg tablet propranolol 20 mg tablet completed propranolol hydrochloride 20 MG Oral Tablet [facility] ([facility]) sennosides 8.6 mg-docusate sodium 50 mg capsule Take 2 capsules by oral route at bedtime. [id number] 2 capsule(s) completed docusate sodium 50 MG / sennosides, FPC 8.6 MG Oral Capsule [facility] ([facility]) Clonazepam 1 MG Oral Tablet clonazepam 1 mg tablet clonazepam 1 mg ta blet completed clonazepam 1 MG Oral Tablet [facility] ([facility]) Triamcinolone Acetonide 1 MG/ML Topical Cream triamcinolone acetonide 0.1 % topical cream triamcinolone acetonide 0.1 % topical cream completed triamcinolone acetonide 1 MG/ML Topical Cream [facility] ([facility]) buspirone hydrochloride 15 MG Oral Table t buspirone 15 mg tablet TAKE ONE TABLET BY MOUTH THREE TIMES A DAY buspirone 15 mg tablet TAKE ONE TABLET B Y MOUTH THREE TIMES A DAY completed buspirone hydrochloride 15 MG Oral Tablet [facility] ([facility]) buspirone hydrochloride 7.5 MG Oral Tablet buspirone 7 .5 mg tablet buspirone 7.5 mg tablet completed buspirone h ydrochloride 7.5 MG Oral Tablet [facility] ([facility]) Ergocalciferol [id number] UNT Oral Capsule Vi tamin D2 1,250 mcg (50,000 unit) capsule Vitamin D2 1,250 mcg (50,000 unit) capsule completed ergocalciferol 1.25 MG Oral Capsule [facility] ([facility]) lamotrigine 25 MG Oral Tablet lamotrigine 25 mg tablet lamot rigine 25 mg tablet completed lamotrigine 25 MG Oral Tablet [facility] ([facility]) sennosides 8.6 mg-docusate sodium 50 mg capsule Take 2 capsules by oral route at bedtime. [id number] 2 capsule(s) completed docusate sodium 50 MG / sennosides, FPC 8.6 MG Oral Capsule [facility] ([facility]) Ergocalciferol 72847 UNT Oral Capsule Vi tamin D2 1,250 mcg (50,000 unit) capsule Vitamin D2 1,250 mcg (50,000 unit) capsule completed ergocalciferol 1.25 MG Oral Capsule [facility] ([facility]) Amitriptyline Hydrochloride 50 MG Oral Tablet amitript yline 50 mg tablet amitriptyline 50 mg tablet completed amitriptyline hydrochloride 50 MG Oral Tablet [facility] ([facility]) Steglatro 5 mg tablet [id number] completed ertugliflozin 5 MG Oral Tablet [Steglatro] [facility] ([facility]) Amitriptyline Hydrochloride 50 MG Oral Tablet amitript yline 50 mg tablet amitriptyline 50 mg tablet completed amitriptyline hydrochloride 50 MG Oral Tablet [facility] ([facility]) Clindamycin 150 MG Oral Capsule clindamycin HCl 150 mg capsule clindamycin HCl 150 mg capsule completed clindam ycin 150 MG Oral Capsule [place] ([facility]) sennosides, FPC 8.6 MG Oral Tablet [Senna-Time] senna 8.6 mg tablet senna 8.6 mg tablet completed sennosi azam, FPC 8.6 MG Oral Tablet [Senna-Time] [facility] ([facility]) sennosides 8.6 mg-docusate sodium 50 mg capsule Take 2 capsules by oral route at bedtime. [id number] 2 capsule(s) completed docusate sodium 50 MG / sennosides, FPC 8.6 MG Oral Capsule [place] ([facility] [facility] sennosides 8.6 mg-docusate sodium 50 mg capsule Take 2 capsules by oral route at bedtime. [id number] 2 capsule(s) completed docusate sodium 50 MG / sennosides, FPC 8.6 MG Oral Capsule [place] ([facility]) lamotrigine 100 MG Oral Tablet lamotrigi ne 100 mg tablet TAKE ONE TABLET BY MOUTH ONCE DAILY lamotrigine 100 mg tablet TAKE ONE TABLET BY MOUTH ONC E DAILY completed lamotrigine 10 0 MG Oral Tablet [place] ([facility]) Propranolol Hydrochloride 20 MG Oral Tablet propranolo l 20 mg tablet propranolol 20 mg tablet completed propranolol hydrochloride 20 MG Oral Tablet [place] ([facility]) sennosides, FPC 8.6 MG Oral Tablet [Senna-Time] senna 8.6 mg tablet senna 8.6 mg tablet completed sennosi azam, FPC 8.6 MG Oral Tablet [Senna-Time] [facility] ([facility]) Isopropyl Alcohol 0.7 ML/ML Medicated Pad Alcohol Prep Pads Alco hol Prep Pads completed isopropyl alco hol 0.7 ML/ML Medicated Pad [place] ([facility]) ziprasidone 60 MG Oral Capsule ziprasidone 60 mg capsu le ziprasidone 60 mg capsule completed ziprasidone 60 MG Oral Capsule [place] ([facility]) Ketoconazole 20 MG/ML Medicated Shampoo ketoconazole 2 % shampoo ketoconazole 2 % shampoo completed ketoconazole 20 MG/ML Medicated Shampoo [place] ([facility]) ziprasidone 60 MG Oral Capsule ziprasidone 60 mg capsu le ziprasidone 60 mg capsule completed ziprasidone 60 MG Oral Capsule [place] ([facility]) Mirtazapine 15 MG Oral Tablet mirtazapine 15 mg tablet derrick zapine 15 mg tablet completed mirtazapine 15 MG Oral Tablet [place] ([facility]) benztropine mesylate 0.5 MG Oral Tablet benztropine 0. 5 mg tablet benztropine 0.5 mg tablet completed benztrop ine mesylate 0.5 MG Oral Tablet [place] ([facility]) OneTouch Delica Plus Lancet 33 gauge [id number] completed OneTouch Delica Plus Lancet 33 gauge [place] ([facility]) Triamcinolone Acetonide 1 MG/ML Topical Cream triamcinolone acetonide 0.1 % topical cream triamcinolone acetonide 0.1 % topical cream completed triamcinolone acetonide 1 MG/ML Topical Cream [place] ([facility]) 0.5 ML dulaglutide 1.5 MG/ML Auto-Inject or [Trulicity] Trulicity 0.75 mg/0.5 mL subcutaneous pen injector Trulicity 0.75 mg/0.5 mL subcutaneous pen injector completed 0.5 ML dulaglu tide 1.5 MG/ML Auto-Injector [Trulicity] [place] ([facility]) Triamcinolone Acetonide 1 MG/ML Topical Cream triamcinolone acetonide 0.1 % topical cream triamcinolone acetonide 0.1 % topical cream completed triamcinolone acetonide 1 MG/ML Topical Cream [facility] ([facility]) buspirone hydrochloride 7.5 MG Oral Tablet buspirone 7 .5 mg tablet buspirone 7.5 mg tablet completed buspirone h ydrochloride 7.5 MG Oral Tablet [facility] ([facility]) lamotrigine 100 MG Oral Tablet lamotrigi ne 100 mg tablet TAKE ONE TABLET BY MOUTH ONCE DAILY lamotrigine 100 mg tablet TAKE ONE TABLET BY MOUTH ONC E DAILY completed lamotrigine 10 0 MG Oral Tablet [facility] ([facility]) buspirone hydrochloride 7.5 MG Oral Tablet buspirone 7 .5 mg tablet buspirone 7.5 mg tablet completed buspirone h ydrochloride 7.5 MG Oral Tablet [place] ([facility]) Amitriptyline Hydrochloride 75 MG Oral Tablet amitript yline 75 mg tablet amitriptyline 75 mg tablet completed amitriptyline hydrochloride 75 MG Oral Tablet [place] ([facility]) Ketoconazole 20 MG/ML Medicated Shampoo ketoconazole 2 % shampoo ketoconazole 2 % shampoo completed ketoconazole 20 MG/ML Medicated Shampoo [place] ([facility]) benztropine mesylate 0.5 MG Oral Tablet benztropine 0. 5 mg tablet benztropine 0.5 mg tablet completed benztrop ine mesylate 0.5 MG Oral Tablet [place] ([facility]) Trazodone Hydrochloride 50 MG Oral Table t trazodone 50 mg tablet TAKE ONE TABLET BY MOUTH EVERY DAY AT BEDTIME trazodone 50 mg tablet TAKE ONE TABLET B Y MOUTH EVERY DAY AT BEDTIME completed trazodone hydrochloride 50 MG Oral Tablet [facility] ([facility]) buspirone hydrochloride 10 MG Oral Tablet buspirone 10 mg tablet buspirone 10 mg tablet completed buspirone hydr ochloride 10 MG Oral Tablet [place] ([facility]) Ketoconazole 20 MG/ML Medicated Shampoo ketoconazole 2 % shampoo ketoconazole 2 % shampoo completed ketoconazole 20 MG/ML Medicated Shampoo [place] ([facility]) Cephalexin 500 MG Oral Capsule cephalexin 500 mg capsu le cephalexin 500 mg capsule completed cephalexin 500 MG Oral Capsule [place] ([facility]) buspirone hydrochloride 7.5 MG Oral Tablet buspirone 7 .5 mg tablet buspirone 7.5 mg tablet completed buspirone h ydrochloride 7.5 MG Oral Tablet [place] ([facility]) ziprasidone 60 MG Oral Capsule ziprasidone 60 mg capsu le ziprasidone 60 mg capsule completed ziprasidone 60 MG Oral Capsule [place] ([facility]) Amitriptyline Hydrochloride 75 MG Oral Tablet amitript yline 75 mg tablet amitriptyline 75 mg tablet completed amitriptyline hydrochloride 75 MG Oral Tablet [place] ([facility]) Clindamycin 150 MG Oral Capsule clindamycin HCl 150 mg capsule clindamycin HCl 150 mg capsule completed clindam ycin 150 MG Oral Capsule [place] ([facility]) cefdinir 300 MG Oral Capsule cefdinir 300 mg capsule cefdinir 30 0 mg capsule completed cefdinir 300 M G Oral Capsule [place] ([facility]) benzonatate 200 MG Oral Capsule benzonatate 200 mg cap k[place] benzonatate 200 mg capsule completed benzonatate 20 0 MG Oral Capsule [place] ([facility]) cefdinir 300 MG Oral Capsule cefdinir 300 mg capsule cefdinir 30 0 mg capsule completed cefdinir 300 M G Oral Capsule [place] ([facility]) Isopropyl Alcohol 0.7 ML/ML Medicated Pad Alcohol Prep Pads Alco hol Prep Pads completed isopropyl alco hol 0.7 ML/ML Medicated Pad [place] ([facility]) lamotrigine 100 MG Oral Tablet lamotrigi ne 100 mg tablet TAKE ONE TABLET BY MOUTH ONCE DAILY lamotrigine 100 mg tablet TAKE ONE TABLET BY MOUTH ONC E DAILY completed lamotrigine 10 0 MG Oral Tablet [place] ([facility]) Triamcinolone Acetonide 1 MG/ML Topical Cream triamcinolone acetonide 0.1 % topical cream triamcinolone acetonide 0.1 % topical cream completed triamcinolone acetonide 1 MG/ML Topical Cream [place] ([facility]) Propranolol Hydrochloride 20 MG Oral Tablet propranolo l 20 mg tablet propranolol 20 mg tablet completed propranolol hydrochloride 20 MG Oral Tablet [place] ([facility]) Ergocalciferol 17070 UNT Oral Capsule Vi tamin D2 1,250 mcg (50,000 unit) capsule Vitamin D2 1,250 mcg (50,000 unit) capsule completed ergocalciferol 1.25 MG Oral Capsule [place] ([facility]) sennosides 8.6 mg-docusate sodium 50 mg capsule Take 2 capsules by oral route at bedtime. [id number] 2 capsule(s) completed docusate sodium 50 MG / sennosides, FPC 8.6 MG Oral Capsule [place] ([facility]) Ketoconazole 20 MG/ML Medicated Shampoo ketoconazole 2 % shampoo ketoconazole 2 % shampoo completed ketoconazole 20 MG/ML Medicated Shampoo [place] ([facility]) Mirtazapine 15 MG Oral Tablet mirtazapine 15 mg tablet derrick zapine 15 mg tablet completed mirtazapine 15 MG Oral Tablet [facility] ([facility]) Propranolol Hydrochloride 20 MG Oral Tablet propranolo l 20 mg tablet propranolol 20 mg tablet completed propranolol hydrochloride 20 MG Oral Tablet [place] ([facility]) Prazosin 1 MG Oral Capsule prazosin 1 mg capsule prazosin 1 mg capsule completed prazosin 1 MG Oral Capsul e [facility] ([facility]) Amitriptyline Hydrochloride 50 MG Oral Tablet amitript yline 50 mg tablet amitriptyline 50 mg tablet completed amitriptyline hydrochloride 50 MG Oral Tablet [facility] ([facility]) Steglatro 5 mg tablet [id number] completed ertugliflozin 5 MG Oral Tablet [Steglatro] [facility] ([facility]) Steglatro 5 mg tablet [id number] completed ertugliflozin 5 MG Oral Tablet [Steglatro] [place] ([facility]) Mirtazapine 15 MG Oral Tablet mirtazapine 15 mg tablet derrick zapine 15 mg tablet completed mirtazapine 15 MG Oral Tablet [place] ([facility]) Clonazepam 1 MG Oral Tablet clonazepam 1 mg tablet clonazepam 1 mg ta blet completed clonazepam 1 MG Oral Tablet [place] ([facility]) Amitriptyline Hydrochloride 75 MG Oral Tablet amitript yline 75 mg tablet amitriptyline 75 mg tablet completed amitriptyline hydrochloride 75 MG Oral Tablet [place] ([facility]) Clonazepam 1 MG Oral Tablet clonazepam 1 mg tablet clonazepam 1 mg ta blet completed clonazepam 1 MG Oral Tablet [place] ([facility]) benztropine mesylate 0.5 MG Oral Tablet benztropine 0. 5 mg tablet benztropine 0.5 mg tablet completed benztrop ine mesylate 0.5 MG Oral Tablet [place] ([facility]) Mirtazapine 45 MG Oral Tablet mirtazapine 45 mg tablet derrick zapine 45 mg tablet completed mirtazapine 45 MG Oral Tablet [place] ([facility]) OneTouch Delica Plus Lancet 33 gauge [id number] completed OneTouch Delica Plus Lancet 33 gauge [place] ([facility]) Amitriptyline Hydrochloride 75 MG Oral Tablet amitript yline 75 mg tablet amitriptyline 75 mg tablet completed amitriptyline hydrochloride 75 MG Oral Tablet [place] ([facility]) Amitriptyline Hydrochloride 50 MG Oral Tablet amitript yline 50 mg tablet amitriptyline 50 mg tablet completed amitriptyline hydrochloride 50 MG Oral Tablet [place] ([facility]) 0.5 ML dulaglutide 1.5 MG/ML Auto-Inject or [Trulicity] Trulicity 0.75 mg/0.5 mL subcutaneous pen injector Trulicity 0.75 mg/0.5 mL subcutaneous pen injector completed 0.5 ML dulaglu tide 1.5 MG/ML Auto-Injector [Trulicity] [place] ([facility]) Ketoconazole 20 MG/ML Medicated Shampoo ketoconazole 2 % shampoo ketoconazole 2 % shampoo completed ketoconazole 20 MG/ML Medicated Shampoo [place] ([facility]) 0.5 ML dulaglutide 1.5 MG/ML Auto-Inject or [Trulicity] Trulicity 0.75 mg/0.5 mL subcutaneous pen injector Trulicity 0.75 mg/0.5 mL subcutaneous pen injector completed 0.5 ML dulaglu tide 1.5 MG/ML Auto-Injector [Trulicity] [place] ([facility]) Simvastatin 10 MG Oral Tablet simvastati n 10 mg tablet TAKE ONE TABLET BY MOUTH EVERY DAY simvastatin 10 mg tablet TAKE ONE TABLET BY MOUTH EVERY DAY completed simvastatin 10 MG Oral Table t [place] ([facility]) sennosides, FPC 8.6 MG Oral Tablet [Senna-Time] senna 8.6 mg tablet senna 8.6 mg tablet completed sennosi azam, FPC 8.6 MG Oral Tablet [Senna-Time] [place] ([facility]) ziprasidone 60 MG Oral Capsule ziprasidone 60 mg capsu le ziprasidone 60 mg capsule completed ziprasidone 60 MG Oral Capsule [place] ([facility]) Docusate Sodium 50 MG / sennosides, FPC 8.6 MG Oral Tablet sennosides 8.6 mg- docusate sodium 50 mg tablet Take 2 tablets by oral route at bedtime. sennosides 8.6 mg-docusate sodium 50 mg tablet Take 2 tablets by oral route at bedtime. 2 completed docusate sodiu m 50 MG / sennosides, FPC 8.6 MG Oral Tablet [place] ([facility]) benztropine mesylate 0.5 MG Oral Tablet benztropine 0. 5 mg tablet benztropine 0.5 mg tablet completed benztrop ine mesylate 0.5 MG Oral Tablet [facility] ([facility]) Clonidine Hydrochloride 0.2 MG Oral Tablet clonidine H Cl 0.2 mg tablet clonidine HCl 0.2 mg tablet completed clonidine hydrochloride 0.2 MG Oral Tablet [place] ([facility]) Amitriptyline Hydrochloride 50 MG Oral Tablet amitript yline 50 mg tablet amitriptyline 50 mg tablet completed amitriptyline hydrochloride 50 MG Oral Tablet [place] ([facility]) Ergocalciferol [id number] UNT Oral Capsule Vi tamin D2 1,250 mcg (50,000 unit) capsule Vitamin D2 1,250 mcg (50,000 unit) capsule completed ergocalciferol 1.25 MG Oral Capsule [place] ([facility]) Azithromycin 250 MG Oral Tablet azithromycin 250 mg ta blet azithromycin 250 mg tablet completed azithromycin 25 0 MG Oral Tablet [place] ([facility]) Clonidine Hydrochloride 0.2 MG Oral Tablet clonidine H Cl 0.2 mg tablet clonidine HCl 0.2 mg tablet completed clonidine hydrochloride 0.2 MG Oral Tablet [place] ([facility]) OneTouch Verio test strips USE UP TO TWO TIMES A DAY DIRECTED [id number] completed OneTouch Verio test strip s [place] ([facility]) buspirone hydrochloride 10 MG Oral Tablet buspirone 10 mg tablet buspirone 10 mg tablet completed buspirone hydr ochloride 10 MG Oral Tablet [place] ([facility]) Azithromycin 250 MG Oral Tablet azithromycin 250 mg ta blet azithromycin 250 mg tablet completed azithromycin 25 0 MG Oral Tablet [place] ([facility]) Triamcinolone Acetonide 1 MG/ML Topical Cream triamcinolone acetonide 0.1 % topical cream triamcinolone acetonide 0.1 % topical cream completed triamcinolone acetonide 1 MG/ML Topical Cream [place] ([facility]) lamotrigine 25 MG Oral Tablet lamotrigine 25 mg tablet lamot rigine 25 mg tablet completed lamotrigine 25 MG Oral Tablet [place] ([facility]) Mirtazapine 45 MG Oral Tablet mirtazapine 45 mg tablet derrick zapine 45 mg tablet completed mirtazapine 45 MG Oral Tablet [place] ([facility]) buspirone hydrochloride 10 MG Oral Tablet buspirone 10 mg tablet buspirone 10 mg tablet completed buspirone hydr ochloride 10 MG Oral Tablet [place] ([facility]) Mirtazapine 45 MG Oral Tablet mirtazapine 45 mg tablet derrick zapine 45 mg tablet completed mirtazapine 45 MG Oral Tablet [place] ([facility]) sennosides 8.6 mg-docusate sodium 50 mg capsule Take 2 capsules by oral route at bedtime. [id number] 2 capsule(s) completed docusate sodium 50 MG / sennosides, FPC 8.6 MG Oral Capsule [place] ([facility]) Ketoconazole 20 MG/ML Medicated Shampoo ketoconazole 2 % shampoo ketoconazole 2 % shampoo completed ketoconazole 20 MG/ML Medicated Shampoo [place] ([facility]) Azithromycin 250 MG Oral Tablet azithromycin 250 mg ta blet azithromycin 250 mg tablet completed azithromycin 25 0 MG Oral Tablet [place] ([facility]) Famotidine 20 MG Oral Tablet famotidine 20 mg tablet famotidine 20 mg tablet completed famotidine 20 MG Oral Tablet [place] ([facility]) ziprasidone 60 MG Oral Capsule ziprasidone 60 mg capsu le ziprasidone 60 mg capsule completed ziprasidone 60 MG Oral Capsule [place] ([facility]) Amitriptyline Hydrochloride 75 MG Oral Tablet amitript yline 75 mg tablet amitriptyline 75 mg tablet completed amitriptyline hydrochloride 75 MG Oral Tablet [place] ([facility]) Mirtazapine 45 MG Oral Tablet mirtazapine 45 mg tablet derrick zapine 45 mg tablet completed mirtazapine 45 MG Oral Tablet [place] ([facility]) Propranolol Hydrochloride 20 MG Oral Tablet propranolo l 20 mg tablet propranolol 20 mg tablet completed propranolol hydrochloride 20 MG Oral Tablet [place] ([facility]) buspirone hydrochloride 15 MG Oral Table t buspirone 15 mg tablet TAKE ONE TABLET BY MOUTH THREE TIMES A DAY buspirone 15 mg tablet TAKE ONE TABLET B Y MOUTH THREE TIMES A DAY completed buspirone hydrochloride 15 MG Oral Tablet [place] ([facility]) Propranolol Hydrochloride 20 MG Oral Tablet propranolo l 20 mg tablet propranolol 20 mg tablet completed propranolol hydrochloride 20 MG Oral Tablet [place] ([facility]) Famotidine 20 MG Oral Tablet famotidine 20 mg tablet famotidine 20 mg tablet completed famotidine 20 MG Oral Tablet [place] ([facility]) benztropine mesylate 0.5 MG Oral Tablet benztropine 0. 5 mg tablet benztropine 0.5 mg tablet completed benztrop ine mesylate 0.5 MG Oral Tablet [place] ([facility]) ziprasidone 60 MG Oral Capsule ziprasidone 60 mg capsu le ziprasidone 60 mg capsule completed ziprasidone 60 MG Oral Capsule [place] ([facility]) Triamcinolone Acetonide 1 MG/ML Topical Cream triamcinolone acetonide 0.1 % topical cream triamcinolone acetonide 0.1 % topical cream completed triamcinolone acetonide 1 MG/ML Topical Cream [place] ([facility]) Famotidine 20 MG Oral Tablet famotidine 20 mg tablet famotidine 20 mg tablet completed famotidine 20 MG Oral Tablet [place] ([facility]) cefdinir 300 MG Oral Capsule cefdinir 300 mg capsule cefdinir 30 0 mg capsule completed cefdinir 300 M G Oral Capsule [place] ([facility]) OneTouch Delica Plus Lancet 33 gauge [id number] completed OneTouch Delica Plus Lancet 33 gauge [place] ([facility]) buspirone hydrochloride 10 MG Oral Tablet buspirone 10 mg tablet buspirone 10 mg tablet completed buspirone hydr ochloride 10 MG Oral Tablet [place] ([facility]) Amitriptyline Hydrochloride 50 MG Oral Tablet amitript yline 50 mg tablet amitriptyline 50 mg tablet completed amitriptyline hydrochloride 50 MG Oral Tablet [place] ([facility]) lamotrigine 25 MG Oral Tablet lamotrigine 25 mg tablet lamot rigine 25 mg tablet completed lamotrigine 25 MG Oral Tablet [place] ([facility]) Clonazepam 0.5 MG Disintegrating Oral Ta blet clonazepam 0.5 mg disintegrating tablet clonazepam 0.5 mg disintegrating tablet completed clonazepam 0.5 MG Disintegrating Oral Tablet [place] ([facility]) lamotrigine 100 MG Oral Tablet lamotrigi ne 100 mg tablet TAKE ONE TABLET BY MOUTH ONCE DAILY lamotrigine 100 mg tablet TAKE ONE TABLET BY MOUTH ONC E DAILY completed lamotrigine 10 0 MG Oral Tablet [place] ([facility]) Clonazepam 0.5 MG Oral Tablet clonazepam 0.5 mg tablet TAKE ONE TABLET BY MOUTH EVERY DAY MAXIMUM DAILY DOSE ONE TABLET clonazepam 0.5 mg tablet TAKE ONE TABLET BY MOUTH EVERY DAY MAXIMUM DAILY DOSE ONE TABLET completed clonazepam 0.5 MG Oral Tablet AT [facility] ([facility]) Clonidine Hydrochloride 0.2 MG Oral Tablet clonidine H Cl 0.2 mg tablet clonidine HCl 0.2 mg tablet completed clonidine hydrochloride 0.2 MG Oral Tablet [place] ([facility]) Ergocalciferol 23125 UNT Oral Capsule Vi tamin D2 1,250 mcg (50,000 unit) capsule Vitamin D2 1,250 mcg (50,000 unit) capsule completed ergocalciferol 1.25 MG Oral Capsule [place] ([facility]) benztropine mesylate 0.5 MG Oral Tablet benztropine 0. 5 mg tablet benztropine 0.5 mg tablet completed benztrop ine mesylate 0.5 MG Oral Tablet [place] ([facility]) Docusate Sodium 50 MG / sennosides, FPC 8.6 MG Oral Tablet sennosides 8.6 mg- docusate sodium 50 mg tablet Take 2 tablets by oral route at bedtime. sennosides 8.6 mg-docusate sodium 50 mg tablet Take 2 tablets by oral route at bedtime. 2 completed docusate sodiu m 50 MG / sennosides, FPC 8.6 MG Oral Tablet [place] ([facility]) OneTouch Delica Plus Lancet 33 gauge [id number] completed OneTouch Delica Plus Lancet 33 gauge [place] ([facility]) Prazosin 1 MG Oral Capsule prazosin 1 mg capsule prazosin 1 mg capsule completed prazosin 1 MG Oral Capsul e [place] ([facility]) Clindamycin 150 MG Oral Capsule clindamycin HCl 150 mg capsule clindamycin HCl 150 mg capsule completed clindam ycin 150 MG Oral Capsule [place] ([facility]) ziprasidone 60 MG Oral Capsule ziprasidone 60 mg capsu le ziprasidone 60 mg capsule completed ziprasidone 60 MG Oral Capsule [place] ([facility]) Docusate Sodium 100 MG Oral Capsule [DOK] DOK 100 mg capsule DOK 100 mg capsule completed docusate sodiu m 100 MG Oral Capsule [DOK] [place] ([facility]) Ergocalciferol 53087 UNT Oral Capsule Vi tamin D2 1,250 mcg (50,000 unit) capsule Vitamin D2 1,250 mcg (50,000 unit) capsule completed ergocalciferol 1.25 MG Oral Capsule [place] ([facility]) Triamcinolone Acetonide 1 MG/ML Topical Cream triamcinolone acetonide 0.1 % topical cream triamcinolone acetonide 0.1 % topical cream completed triamcinolone acetonide 1 MG/ML Topical Cream [place] ([facility]) Ketoconazole 20 MG/ML Medicated Shampoo ketoconazole 2 % shampoo ketoconazole 2 % shampoo completed ketoconazole 20 MG/ML Medicated Shampoo [place] ([facility]) Mirtazapine 15 MG Oral Tablet mirtazapine 15 mg tablet derrick zapine 15 mg tablet completed mirtazapine 15 MG Oral Tablet [place] ([facility]) lamotrigine 25 MG Oral Tablet lamotrigine 25 mg tablet lamot rigine 25 mg tablet completed lamotrigine 25 MG Oral Tablet [place] ([facility]) Clindamycin 150 MG Oral Capsule clindamycin HCl 150 mg capsule clindamycin HCl 150 mg capsule completed clindam ycin 150 MG Oral Capsule [place] ([facility]) Amitriptyline Hydrochloride 75 MG Oral Tablet amitript yline 75 mg tablet amitriptyline 75 mg tablet completed amitriptyline hydrochloride 75 MG Oral Tablet [place] ([facility]) Ketoconazole 20 MG/ML Medicated Shampoo ketoconazole 2 % shampoo ketoconazole 2 % shampoo completed ketoconazole 20 MG/ML Medicated Shampoo [place] ([facility]) Clonazepam 1 MG Oral Tablet clonazepam 1 mg tablet clonazepam 1 mg ta blet completed clonazepam 1 MG Oral Tablet [place] ([facility]) Isopropyl Alcohol 0.7 ML/ML Medicated Pad Alcohol Prep Pads Alco hol Prep Pads completed isopropyl alco hol 0.7 ML/ML Medicated Pad [place] ([facility]) Clonazepam 1 MG Oral Tablet clonazepam 1 mg tablet clonazepam 1 mg ta blet completed clonazepam 1 MG Oral Tablet [place] ([facility]) Mirtazapine 15 MG Oral Tablet mirtazapine 15 mg tablet derrick zapine 15 mg tablet completed mirtazapine 15 MG Oral Tablet [place] ([facility]) Mirtazapine 15 MG Oral Tablet mirtazapine 15 mg tablet derrick zapine 15 mg tablet completed mirtazapine 15 MG Oral Tablet [place] ([facility]) Clonidine Hydrochloride 0.2 MG Oral Tablet clonidine H Cl 0.2 mg tablet clonidine HCl 0.2 mg tablet completed clonidine hydrochloride 0.2 MG Oral Tablet [place] ([facility]) Famotidine 20 MG Oral Tablet famotidine 20 mg tablet famotidine 20 mg tablet completed famotidine 20 MG Oral Tablet [place] ([facility]) buspirone hydrochloride 15 MG Oral Table t buspirone 15 mg tablet TAKE ONE TABLET BY MOUTH THREE TIMES A DAY buspirone 15 mg tablet TAKE ONE TABLET B Y MOUTH THREE TIMES A DAY completed buspirone hydrochloride 15 MG Oral Tablet [place] ([facility]) Ergocalciferol 95179 UNT Oral Capsule Vi tamin D2 1,250 mcg (50,000 unit) capsule Vitamin D2 1,250 mcg (50,000 unit) capsule completed ergocalciferol 1.25 MG Oral Capsule [place] ([facility]) OneTouch Verio test strips USE DIRECTED UP TO TWO TIMES A DAY [id number] completed OneTouch Verio test strip s [place] ([facility]) benztropine mesylate 0.5 MG Oral Tablet benztropine 0. 5 mg tablet benztropine 0.5 mg tablet completed benztrop ine mesylate 0.5 MG Oral Tablet [place] ([facility]) sennosides 8.6 mg-docusate sodium 50 mg capsule Take 2 capsules by oral route at bedtime. [id number] 2 capsule(s) completed docusate sodium 50 MG / sennosides, FPC 8.6 MG Oral Capsule JEFF ([facility] er) 0.5 ML dulaglutide 1.5 MG/ML Auto-Inject or [Trulicity] Trulicity 0.75 mg/0.5 mL subcutaneous pen injector Trulicity 0.75 mg/0.5 mL subcutaneous pen injector completed 0.5 ML dulaglu tide 1.5 MG/ML Auto-Injector [Trulicity] JEFF ([facility]) Triamcinolone Acetonide 1 MG/ML Topical Cream triamcinolone acetonide 0.1 % topical cream triamcinolone acetonide 0.1 % topical cream completed triamcinolone acetonide 1 MG/ML Topical Cream JEFF ([facility]) benztropine mesylate 0.5 MG Oral Tablet benztropine 0. 5 mg tablet benztropine 0.5 mg tablet completed benztrop ine mesylate 0.5 MG Oral Tablet JEFF ([facility]) benzonatate 200 MG Oral Capsule benzonatate 200 mg cap [place] benzonatate 200 mg capsule completed benzonatate 20 0 MG Oral Capsule [place] ([facility]) Propranolol Hydrochloride 20 MG Oral Tablet propranolo l 20 mg tablet propranolol 20 mg tablet completed propranolol hydrochloride 20 MG Oral Tablet JEFF ([facility]) OneTouch Verio test strips USE UP TO TWO TIMES A DAY DIRECTED [id number] completed OneTouch Verio test strip s JEFF ([facility]) benzonatate 200 MG Oral Capsule benzonatate 200 mg cap [place] benzonatate 200 mg capsule completed benzonatate 20 0 MG Oral Capsule JEFF ([facility]) Prazosin 1 MG Oral Capsule prazosin 1 mg capsule prazosin 1 mg capsule completed prazosin 1 MG Oral Capsul e JEFF ([facility]) benzonatate 200 MG Oral Capsule benzonatate 200 mg cap [place] benzonatate 200 mg capsule completed benzonatate 20 0 MG Oral Capsule JEFF ([facility]) Mirtazapine 45 MG Oral Tablet mirtazapine 45 mg tablet derrick zapine 45 mg tablet completed mirtazapine 45 MG Oral Tablet JEFF ([facility]) buspirone hydrochloride 7.5 MG Oral Tablet buspirone 7 .5 mg tablet buspirone 7.5 mg tablet completed buspirone h ydrochloride 7.5 MG Oral Tablet JEFF ([facility]) Amitriptyline Hydrochloride 50 MG Oral Tablet amitript yline 50 mg tablet amitriptyline 50 mg tablet completed amitriptyline hydrochloride 50 MG Oral Tablet JEFF ([facility]) ziprasidone 60 MG Oral Capsule ziprasidone 60 mg capsu le ziprasidone 60 mg capsule completed ziprasidone 60 MG Oral Capsule [place] ([facility]) Clindamycin 150 MG Oral Capsule clindamycin HCl 150 mg capsule clindamycin HCl 150 mg capsule completed clindam ycin 150 MG Oral Capsule JEFF ([facility]) Mirtazapine 45 MG Oral Tablet mirtazapine 45 mg tablet derrick zapine 45 mg tablet completed mirtazapine 45 MG Oral Tablet JEFF ([facility]) buspirone hydrochloride 7.5 MG Oral Tablet buspirone 7 .5 mg tablet buspirone 7.5 mg tablet completed buspirone h ydrochloride 7.5 MG Oral Tablet JEFF ([facility]) benzonatate 200 MG Oral Capsule benzonatate 200 mg cap [place] benzonatate 200 mg capsule completed benzonatate 20 0 MG Oral Capsule JEFF ([facility]) Famotidine 20 MG Oral Tablet famotidine 20 mg tablet famotidine 20 mg tablet completed famotidine 20 MG Oral Tablet JEFF ([facility]) Ergocalciferol [id number] UNT Oral Capsule Vi tamin D2 1,250 mcg (50,000 unit) capsule Vitamin D2 1,250 mcg (50,000 unit) capsule completed ergocalciferol 1.25 MG Oral Capsule [place] ([facility]) 0.5 ML dulaglutide 1.5 MG/ML Auto-Inject or [Trulicity] Trulicity 0.75 mg/0.5 mL subcutaneous pen injector Trulicity 0.75 mg/0.5 mL subcutaneous pen injector completed 0.5 ML dulaglu tide 1.5 MG/ML Auto-Injector [Trulicity] [place] ([facility]) buspirone hydrochloride 7.5 MG Oral Tablet buspirone 7 .5 mg tablet buspirone 7.5 mg tablet completed buspirone h ydrochloride 7.5 MG Oral Tablet JEFF ([facility]) cefdinir 300 MG Oral Capsule cefdinir 300 mg capsule cefdinir 30 0 mg capsule completed cefdinir 300 M G Oral Capsule [place] ([facility]) Amitriptyline Hydrochloride 50 MG Oral Tablet amitript yline 50 mg tablet amitriptyline 50 mg tablet completed amitriptyline hydrochloride 50 MG Oral Tablet JEFF ([facility]) Mirtazapine 15 MG Oral Tablet mirtazapine 15 mg tablet derrick zapine 15 mg tablet completed mirtazapine 15 MG Oral Tablet JEFF ([facility]) Clonidine Hydrochloride 0.2 MG Oral Tablet clonidine H Cl 0.2 mg tablet clonidine HCl 0.2 mg tablet completed clonidine hydrochloride 0.2 MG Oral Tablet JEFF ([facility]) Clonazepam 1 MG Oral Tablet clonazepam 1 mg tablet clonazepam 1 mg ta blet completed clonazepam 1 MG Oral Tablet JEFF ([facility]) sennosides 8.6 mg-docusate sodium 50 mg capsule Take 2 capsules by oral route at bedtime. [id number] 2 capsule(s) completed docusate sodium 50 MG / sennosides, FPC 8.6 MG Oral Capsule JEFF ([facility]) Azithromycin 250 MG Oral Tablet azithromycin 250 mg ta blet azithromycin 250 mg tablet completed azithromycin 25 0 MG Oral Tablet JEFF ([facility]) cefdinir 300 MG Oral Capsule cefdinir 300 mg capsule cefdinir 30 0 mg capsule completed cefdinir 300 M G Oral Capsule JEFF ([facility]) Docusate Sodium 50 MG / sennosides, FPC 8.6 MG Oral Tablet sennosides 8.6 mg- docusate sodium 50 mg tablet Take 2 tablets by oral route at bedtime. sennosides 8.6 mg-docusate sodium 50 mg tablet Take 2 tablets by oral route at bedtime. 2 completed docusate sodiu m 50 MG / sennosides, FPC 8.6 MG Oral Tablet JEFF ([facility]) Clonazepam 1 MG Oral Tablet clonazepam 1 mg tablet clonazepam 1 mg ta blet completed clonazepam 1 MG Oral Tablet JEFF ([facility]) Clonazepam 1 MG Oral Tablet clonazepam 1 mg tablet clonazepam 1 mg ta blet completed clonazepam 1 MG Oral Tablet JEFF ([facility]) benztropine mesylate 0.5 MG Oral Tablet benztropine 0. 5 mg tablet benztropine 0.5 mg tablet completed benztrop ine mesylate 0.5 MG Oral Tablet JEFF ([facility]) ziprasidone 60 MG Oral Capsule ziprasidone 60 mg capsu le ziprasidone 60 mg capsule completed ziprasidone 60 MG Oral Capsule JEFF ([facility]) Amitriptyline Hydrochloride 75 MG Oral Tablet amitript yline 75 mg tablet amitriptyline 75 mg tablet completed amitriptyline hydrochloride 75 MG Oral Tablet JEFF ([facility]) Docusate Sodium 50 MG / sennosides, FPC 8.6 MG Oral Tablet sennosides 8.6 mg- docusate sodium 50 mg tablet Take 2 tablets by oral route at bedtime. sennosides 8.6 mg-docusate sodium 50 mg tablet Take 2 tablets by oral route at bedtime. 2 completed docusate sodiu m 50 MG / sennosides, FPC 8.6 MG Oral Tablet JEFF ([facility]) benztropine mesylate 0.5 MG Oral Tablet benztropine 0. 5 mg tablet benztropine 0.5 mg tablet completed benztrop ine mesylate 0.5 MG Oral Tablet JEFF ([facility]) Steglatro 5 mg tablet [id number] completed ertugliflozin 5 MG Oral Tablet [Steglatro] JEFF ([facility]) buspirone hydrochloride 10 MG Oral Tablet buspirone 10 mg tablet buspirone 10 mg tablet completed buspirone hydr ochloride 10 MG Oral Tablet JEFF ([facility]) OneTouch Delica Plus Lancet 33 gauge [id number] completed OneTouch Delica Plus Lancet 33 gauge JEFF ([facility]) Prazosin 1 MG Oral Capsule prazosin 1 mg capsule prazosin 1 mg capsule completed prazosin 1 MG Oral Capsul e JEFF ([facility]) Clonazepam 0.5 MG Disintegrating Oral Ta blet clonazepam 0.5 mg disintegrating tablet clonazepam 0.5 mg disintegrating tablet completed clonazepam 0.5 MG Disintegrating Oral Tablet JEFF ([facility]) Docusate Sodium 50 MG / sennosides, FPC 8.6 MG Oral Tablet sennosides 8.6 mg- docusate sodium 50 mg tablet Take 2 tablets by oral route at bedtime. sennosides 8.6 mg-docusate sodium 50 mg tablet Take 2 tablets by oral route at bedtime. 2 completed docusate sodiu m 50 MG / sennosides, FPC 8.6 MG Oral Tablet JEFF ([facility]) Docusate Sodium 50 MG / sennosides, FPC 8.6 MG Oral Tablet sennosides 8.6 mg- docusate sodium 50 mg tablet Take 2 tablets by oral route at bedtime. sennosides 8.6 mg-docusate sodium 50 mg tablet Take 2 tablets by oral route at bedtime. 2 completed docusate sodiu m 50 MG / sennosides, FPC 8.6 MG Oral Tablet JEFF ([facility]) Steglatro 5 mg tablet [id number] completed ertugliflozin 5 MG Oral Tablet [Steglatro] JEFF ([facility]) ziprasidone 60 MG Oral Capsule ziprasidone 60 mg capsu le ziprasidone 60 mg capsule completed ziprasidone 60 MG Oral Capsule JEFF ([facility]) Amitriptyline Hydrochloride 50 MG Oral Tablet amitript yline 50 mg tablet amitriptyline 50 mg tablet completed amitriptyline hydrochloride 50 MG Oral Tablet JEFF ([facility]) Prazosin 1 MG Oral Capsule prazosin 1 mg capsule prazosin 1 mg capsule completed prazosin 1 MG Oral Capsul e [place] ([facility]) sennosides, FPC 8.6 MG Oral Tablet [Senna-Time] senna 8.6 mg tablet senna 8.6 mg tablet completed sennosi azam, FPC 8.6 MG Oral Tablet [Senna-Time] JEFF ([facility]) 0.5 ML dulaglutide 1.5 MG/ML Auto-Inject or [Trulicity] Trulicity 0.75 mg/0.5 mL subcutaneous pen injector Trulicity 0.75 mg/0.5 mL subcutaneous pen injector completed 0.5 ML dulaglu tide 1.5 MG/ML Auto-Injector [Trulicity] JEFF ([facility]) Mirtazapine 45 MG Oral Tablet mirtazapine 45 mg tablet derrick zapine 45 mg tablet completed mirtazapine 45 MG Oral Tablet [place] ([facility]) Docusate Sodium 50 MG / sennosides, FPC 8.6 MG Oral Tablet sennosides 8.6 mg- docusate sodium 50 mg tablet Take 2 tablets by oral route at bedtime. sennosides 8.6 mg-docusate sodium 50 mg tablet Take 2 tablets by oral route at bedtime. 2 completed docusate sodiu m 50 MG / sennosides, FPC 8.6 MG Oral Tablet JEFF ([facility]) buspirone hydrochloride 10 MG Oral Tablet buspirone 10 mg tablet buspirone 10 mg tablet completed buspirone hydr ochloride 10 MG Oral Tablet JEFF ([facility]) Mirtazapine 45 MG Oral Tablet mirtazapine 45 mg tablet derrick zapine 45 mg tablet completed mirtazapine 45 MG Oral Tablet [place] ([facility]) Amitriptyline Hydrochloride 50 MG Oral Tablet amitript yline 50 mg tablet amitriptyline 50 mg tablet completed amitriptyline hydrochloride 50 MG Oral Tablet JEFF ([facility]) Clonazepam 1 MG Oral Tablet clonazepam 1 mg tablet clonazepam 1 mg ta blet completed clonazepam 1 MG Oral Tablet JEFF ([facility]) Ketoconazole 20 MG/ML Medicated Shampoo ketoconazole 2 % shampoo ketoconazole 2 % shampoo completed ketoconazole 20 MG/ML Medicated Shampoo JEFF ([facility]) OneTouch Verio test strips USE UP TO TWO TIMES A DAY DIRECTED [id number] completed OneTouch Verio test strip s JEFF ([facility]) Famotidine 20 MG Oral Tablet famotidine 20 mg tablet famotidine 20 mg tablet completed famotidine 20 MG Oral Tablet JEFF ([facility]) Clonazepam 1 MG Oral Tablet clonazepam 1 mg tablet clonazepam 1 mg ta blet completed clonazepam 1 MG Oral Tablet JEFF ([facility]) Azithromycin 250 MG Oral Tablet azithromycin 250 mg ta blet azithromycin 250 mg tablet completed azithromycin 25 0 MG Oral Tablet JEFF ([facility]) Mirtazapine 45 MG Oral Tablet mirtazapine 45 mg tablet derrick zapine 45 mg tablet completed mirtazapine 45 MG Oral Tablet JEFF ([facility]) Amitriptyline Hydrochloride 75 MG Oral Tablet amitript yline 75 mg tablet amitriptyline 75 mg tablet completed amitriptyline hydrochloride 75 MG Oral Tablet JEFF ([facility]) Ketoconazole 20 MG/ML Medicated Shampoo ketoconazole 2 % shampoo ketoconazole 2 % shampoo completed ketoconazole 20 MG/ML Medicated Shampoo JEFF ([facility]) Clonazepam 1 MG Oral Tablet clonazepam 1 mg tablet clonazepam 1 mg ta blet completed clonazepam 1 MG Oral Tablet JEFF ([facility]) Triamcinolone Acetonide 1 MG/ML Topical Cream triamcinolone acetonide 0.1 % topical cream triamcinolone acetonide 0.1 % topical cream completed triamcinolone acetonide 1 MG/ML Topical Cream JEFF ([facility]) Famotidine 20 MG Oral Tablet famotidine 20 mg tablet famotidine 20 mg tablet completed famotidine 20 MG Oral Tablet JEFF ([facility]) Steglatro 5 mg tablet [id number] completed ertugliflozin 5 MG Oral Tablet [Steglatro] [place] ([facility]) Clonazepam 0.5 MG Oral Tablet clonazepam 0.5 mg tablet TAKE ONE TABLET BY MOUTH NEEDED FOR 3 DAYS THEN ONE HALF TABLET UNTIL FINISHED MAXIMUM DAILY DOSE ONE TABLET clonazepam 0.5 mg tablet TAKE ONE TABLET BY MOUTH NEEDED FOR 3 DAYS THEN ONE HALF TABLET UNTIL FINISHED MAXIMUM DAILY DOSE ONE TABLET completed clonazepam 0.5 MG Or al Tablet [place] ([facility]) Mirtazapine 45 MG Oral Tablet mirtazapine 45 mg tablet derrick zapine 45 mg tablet completed mirtazapine 45 MG Oral Tablet [place] ([facility]) Ketoconazole 20 MG/ML Medicated Shampoo ketoconazole 2 % shampoo ketoconazole 2 % shampoo completed ketoconazole 20 MG/ML Medicated Shampoo [place] ([facility]) Azithromycin 250 MG Oral Tablet azithromycin 250 mg ta blet azithromycin 250 mg tablet completed azithromycin 25 0 MG Oral Tablet [place] ([facility]) cefdinir 300 MG Oral Capsule cefdinir 300 mg capsule cefdinir 30 0 mg capsule completed cefdinir 300 M G Oral Capsule [place] ([facility]) OneTouch Verio Flex Meter [id number] compl eted OneTouch Verio Flex Meter [place] ([facility]) Simvastatin 10 MG Oral Tablet simvastati n 10 mg tablet TAKE ONE TABLET BY MOUTH EVERY DAY simvastatin 10 mg tablet TAKE ONE TABLET BY MOUTH EVERY DAY completed simvastatin 10 MG Oral Table t [place] ([facility]) buspirone hydrochloride 7.5 MG Oral Tablet buspirone 7 .5 mg tablet buspirone 7.5 mg tablet completed buspirone h ydrochloride 7.5 MG Oral Tablet [place] ([facility]) Famotidine 20 MG Oral Tablet famotidine 20 mg tablet famotidine 20 mg tablet completed famotidine 20 MG Oral Tablet [place] ([facility]) buspirone hydrochloride 7.5 MG Oral Tablet buspirone 7 .5 mg tablet buspirone 7.5 mg tablet completed buspirone h ydrochloride 7.5 MG Oral Tablet [place] ([facility]) buspirone hydrochloride 7.5 MG Oral Tablet buspirone 7 .5 mg tablet buspirone 7.5 mg tablet completed buspirone h ydrochloride 7.5 MG Oral Tablet JEFF ([facility]) sennosides 8.6 mg-docusate sodium 50 mg capsule Take 2 capsules by oral route at bedtime. [id number] 2 capsule(s) completed docusate sodium 50 MG / sennosides, FPC 8.6 MG Oral Capsule JEFF ([facility]) cefdinir 300 MG Oral Capsule cefdinir 300 mg capsule cefdinir 30 0 mg capsule completed cefdinir 300 M G Oral Capsule [place] ([facility]) Triamcinolone Acetonide 1 MG/ML Topical Cream triamcinolone acetonide 0.1 % topical cream triamcinolone acetonide 0.1 % topical cream completed triamcinolone acetonide 1 MG/ML Topical Cream [place] ([facility]) Docusate Sodium 100 MG Oral Capsule [DOK] DOK 100 mg capsule DOK 100 mg capsule completed docusate sodiu m 100 MG Oral Capsule [DOK] JEFF ([facility]) benzonatate 200 MG Oral Capsule benzonatate 200 mg cap [place] benzonatate 200 mg capsule completed benzonatate 20 0 MG Oral Capsule [place] ([facility]) Simvastatin 10 MG Oral Tablet simvastati n 10 mg tablet TAKE ONE TABLET BY MOUTH EVERY DAY simvastatin 10 mg tablet TAKE ONE TABLET BY MOUTH EVERY DAY completed simvastatin 10 MG Oral Table t JEFF ([facility]) Clonazepam 1 MG Oral Tablet clonazepam 1 mg tablet clonazepam 1 mg ta blet completed clonazepam 1 MG Oral Tablet JEFF ([facility]) Steglatro 5 mg tablet [id number] completed ertugliflozin 5 MG Oral Tablet [Steglatro] [place] ([facility]) Clonidine Hydrochloride 0.2 MG Oral Tablet clonidine H Cl 0.2 mg tablet clonidine HCl 0.2 mg tablet completed clonidine hydrochloride 0.2 MG Oral Tablet JEFF ([facility]) OneTouch Verio Flex Meter [id number] compl eted OneTouch Verio Flex Meter JE[facility] ([facility]) Mirtazapine 45 MG Oral Tablet mirtazapine 45 mg tablet derrick zapine 45 mg tablet completed mirtazapine 45 MG Oral Tablet JE[facility] ([facility]) Amitriptyline Hydrochloride 50 MG Oral Tablet amitript yline 50 mg tablet amitriptyline 50 mg tablet completed amitriptyline hydrochloride 50 MG Oral Tablet [facility] ([facility]) Famotidine 20 MG Oral Tablet famotidine 20 mg tablet famotidine 20 mg tablet completed famotidine 20 MG Oral Tablet [facility] ([facility]) Clonidine Hydrochloride 0.2 MG Oral Tablet clonidine H Cl 0.2 mg tablet clonidine HCl 0.2 mg tablet completed clonidine hydrochloride 0.2 MG Oral Tablet JE[facility] ([facility]) OneTouch Verio Flex Meter [id number] compl eted OneTouch Verio Flex Meter JE[facility] ([facility]) Mirtazapine 45 MG Oral Tablet mirtazapine 45 mg tablet derrick zapine 45 mg tablet completed mirtazapine 45 MG Oral Tablet [place] ([facility]) Clonazepam 1 MG Oral Tablet clonazepam 1 mg tablet clonazepam 1 mg ta blet completed clonazepam 1 MG Oral Tablet [place] ([facility]) Steglatro 5 mg tablet [id number] completed ertugliflozin 5 MG Oral Tablet [Steglatro] JEFF ([facility]) Amitriptyline Hydrochloride 50 MG Oral Tablet amitript yline 50 mg tablet amitriptyline 50 mg tablet completed amitriptyline hydrochloride 50 MG Oral Tablet JE[facility] ([facility]) Mirtazapine 15 MG Oral Tablet mirtazapine 15 mg tablet derrick zapine 15 mg tablet completed mirtazapine 15 MG Oral Tablet JEFF ([facility]) benzonatate 200 MG Oral Capsule benzonatate 200 mg cap [place] benzonatate 200 mg capsule completed benzonatate 20 0 MG Oral Capsule JEFF ([facility]) Steglatro 5 mg tablet [id number] completed ertugliflozin 5 MG Oral Tablet [Steglatro] JEFF ([facility]) buspirone hydrochloride 10 MG Oral Tablet buspirone 10 mg tablet buspirone 10 mg tablet completed buspirone hydr ochloride 10 MG Oral Tablet JEFF ([facility]) Propranolol Hydrochloride 20 MG Oral Tablet propranolo l 20 mg tablet propranolol 20 mg tablet completed propranolol hydrochloride 20 MG Oral Tablet [place] ([facility]) BD Ultra-Fine Short Pen Needle 31 gauge x 5/16" USE ONCE DAILY [id number] completed BD Ultra-Fine Short Pen Need le 31 gauge x 5/16" [place] ([facility]) Steglatro 5 mg tablet [id number] completed ertugliflozin 5 MG Oral Tablet [Steglatro] [place] ([facility]) buspirone hydrochloride 10 MG Oral Tablet buspirone 10 mg tablet buspirone 10 mg tablet completed buspirone hydr ochloride 10 MG Oral Tablet [place] ([facility]) lamotrigine 25 MG Oral Tablet lamotrigine 25 mg tablet lamot rigine 25 mg tablet completed lamotrigine 25 MG Oral Tablet [place] ([facility]) Isopropyl Alcohol 0.7 ML/ML Medicated Pad Alcohol Prep Pads Alco hol Prep Pads completed isopropyl alco hol 0.7 ML/ML Medicated Pad JEFF ([facility]) cefdinir 300 MG Oral Capsule cefdinir 300 mg capsule cefdinir 30 0 mg capsule completed cefdinir 300 M G Oral Capsule [place] ([facility]) Azithromycin 250 MG Oral Tablet azithromycin 250 mg ta blet azithromycin 250 mg tablet completed azithromycin 25 0 MG Oral Tablet [place] ([facility]) sennosides 8.6 mg-docusate sodium 50 mg capsule Take 2 capsules by oral route at bedtime. [id number] 2 capsule(s) completed docusate sodium 50 MG / sennosides, FPC 8.6 MG Oral Capsule [place] ([facility]) Propranolol Hydrochloride 20 MG Oral Tablet propranolo l 20 mg tablet propranolol 20 mg tablet completed propranolol hydrochloride 20 MG Oral Tablet [place] ([facility]) Docusate Sodium 50 MG / sennosides, FPC 8.6 MG Oral Tablet sennosides 8.6 mg- docusate sodium 50 mg tablet Take 2 tablets by oral route at bedtime. sennosides 8.6 mg-docusate sodium 50 mg tablet Take 2 tablets by oral route at bedtime. 2 completed docusate sodiu m 50 MG / sennosides, FPC 8.6 MG Oral Tablet JEFF ([facility]) OneTouch Delica Plus Lancet 33 gauge [id number] completed OneTouch Delica Plus Lancet 33 gauge JEFF ([facility]) buspirone hydrochloride 7.5 MG Oral Tablet buspirone 7 .5 mg tablet buspirone 7.5 mg tablet completed buspirone h ydrochloride 7.5 MG Oral Tablet JEFF ([facility]) Azithromycin 250 MG Oral Tablet azithromycin 250 mg ta blet azithromycin 250 mg tablet completed azithromycin 25 0 MG Oral Tablet JE[facility] ([facility]) Clonidine Hydrochloride 0.2 MG Oral Tablet clonidine H Cl 0.2 mg tablet clonidine HCl 0.2 mg tablet completed clonidine hydrochloride 0.2 MG Oral Tablet [facility] ([facility]) Clonidine Hydrochloride 0.2 MG Oral Tablet clonidine H Cl 0.2 mg tablet clonidine HCl 0.2 mg tablet completed clonidine hydrochloride 0.2 MG Oral Tablet JE[facility] ([facility]) Clonazepam 1 MG Oral Tablet clonazepam 1 mg tablet clonazepam 1 mg ta blet completed clonazepam 1 MG Oral Tablet JE[facility] ([facility]) Simvastatin 10 MG Oral Tablet simvastati n 10 mg tablet TAKE ONE TABLET BY MOUTH EVERY DAY simvastatin 10 mg tablet TAKE ONE TABLET BY MOUTH EVERY DAY completed simvastatin 10 MG Oral Table t JEFF ([facility]) benztropine mesylate 0.5 MG Oral Tablet benztropine 0. 5 mg tablet benztropine 0.5 mg tablet completed benztrop ine mesylate 0.5 MG Oral Tablet JE[facility] ([facility]) lamotrigine 25 MG Oral Tablet lamotrigine 25 mg tablet lamot rigine 25 mg tablet completed lamotrigine 25 MG Oral Tablet [facility] ([facility]) Amitriptyline Hydrochloride 75 MG Oral Tablet amitript yline 75 mg tablet amitriptyline 75 mg tablet completed amitriptyline hydrochloride 75 MG Oral Tablet [facility] ([facility]) Mirtazapine 15 MG Oral Tablet mirtazapine 15 mg tablet derrick zapine 15 mg tablet completed mirtazapine 15 MG Oral Tablet [facility] ([facility]) Propranolol Hydrochloride 20 MG Oral Tablet propranolo l 20 mg tablet propranolol 20 mg tablet completed propranolol hydrochloride 20 MG Oral Tablet [facility] ([facility]) OneTouch Delica Plus Lancet 33 gauge [id number] completed OneTouch Delica Plus Lancet 33 gauge JE[facility] ([facility]) Azithromycin 250 MG Oral Tablet azithromycin 250 mg ta blet azithromycin 250 mg tablet completed azithromycin 25 0 MG Oral Tablet [place] ([facility]) Docusate Sodium 50 MG / sennosides, FPC 8.6 MG Oral Tablet sennosides 8.6 mg- docusate sodium 50 mg tablet Take 2 tablets by oral route at bedtime. sennosides 8.6 mg-docusate sodium 50 mg tablet Take 2 tablets by oral route at bedtime. 2 completed docusate sodiu m 50 MG / sennosides, FPC 8.6 MG Oral Tablet [place] ([facility]) Isopropyl Alcohol 0.7 ML/ML Medicated Pad Alcohol Prep Pads Alco hol Prep Pads completed isopropyl alco hol 0.7 ML/ML Medicated Pad [place] ([facility]) Amitriptyline Hydrochloride 75 MG Oral Tablet amitript yline 75 mg tablet amitriptyline 75 mg tablet completed amitriptyline hydrochloride 75 MG Oral Tablet [place] ([facility]) 0.5 ML dulaglutide 1.5 MG/ML Auto-Inject or [Trulicity] Trulicity 0.75 mg/0.5 mL subcutaneous pen injector Trulicity 0.75 mg/0.5 mL subcutaneous pen injector completed 0.5 ML dulaglu tide 1.5 MG/ML Auto-Injector [Trulicity] [place] ([facility]) Clonazepam 0.5 MG Disintegrating Oral Ta blet clonazepam 0.5 mg disintegrating tablet clonazepam 0.5 mg disintegrating tablet completed clonazepam 0.5 MG Disintegrating Oral Tablet [place] ([facility]) Docusate Sodium 100 MG Oral Capsule [DOK] DOK 100 mg capsule DOK 100 mg capsule completed docusate sodiu m 100 MG Oral Capsule [DOK] [place] ([facility]) Prazosin 1 MG Oral Capsule prazosin 1 mg capsule prazosin 1 mg capsule completed prazosin 1 MG Oral Capsul e [place] ([facility]) Steglatro 5 mg tablet [id number] completed ertugliflozin 5 MG Oral Tablet [Steglatro] [place] ([facility]) Amitriptyline Hydrochloride 75 MG Oral Tablet amitript yline 75 mg tablet amitriptyline 75 mg tablet completed amitriptyline hydrochloride 75 MG Oral Tablet [place] ([facility]) buspirone hydrochloride 7.5 MG Oral Tablet buspirone 7 .5 mg tablet buspirone 7.5 mg tablet completed buspirone h ydrochloride 7.5 MG Oral Tablet [place] ([facility]) Clindamycin 150 MG Oral Capsule clindamycin HCl 150 mg capsule clindamycin HCl 150 mg capsule completed clindam ycin 150 MG Oral Capsule [place] ([facility]) benztropine mesylate 0.5 MG Oral Tablet benztropine 0. 5 mg tablet benztropine 0.5 mg tablet completed benztrop ine mesylate 0.5 MG Oral Tablet [place] ([facility]) lamotrigine 25 MG Oral Tablet lamotrigine 25 mg tablet lamot rigine 25 mg tablet completed lamotrigine 25 MG Oral Tablet [place] ([facility]) Clonidine Hydrochloride 0.2 MG Oral Tablet clonidine H Cl 0.2 mg tablet clonidine HCl 0.2 mg tablet completed clonidine hydrochloride 0.2 MG Oral Tablet [place] ([facility]) OneTouch Verio Flex Meter [id number] compl eted OneTouch Verio Flex Meter [place] ([facility]) Mirtazapine 15 MG Oral Tablet mirtazapine 15 mg tablet derrick zapine 15 mg tablet completed mirtazapine 15 MG Oral Tablet [place] ([facility]) 0.5 ML dulaglutide 1.5 MG/ML Auto-Inject or [Trulicity] Trulicity 0.75 mg/0.5 mL subcutaneous pen injector Trulicity 0.75 mg/0.5 mL subcutaneous pen injector completed 0.5 ML dulaglu tide 1.5 MG/ML Auto-Injector [Trulicity] [place] ([facility]) Docusate Sodium 50 MG / sennosides, FPC 8.6 MG Oral Tablet sennosides 8.6 mg- docusate sodium 50 mg tablet Take 2 tablets by oral route at bedtime. sennosides 8.6 mg-docusate sodium 50 mg tablet Take 2 tablets by oral route at bedtime. 2 completed docusate sodiu m 50 MG / sennosides, FPC 8.6 MG Oral Tablet [place] ([facility]) Clonazepam 0.5 MG Disintegrating Oral Ta blet clonazepam 0.5 mg disintegrating tablet clonazepam 0.5 mg disintegrating tablet completed clonazepam 0.5 MG Disintegrating Oral Tablet [place] ([facility]) Amitriptyline Hydrochloride 75 MG Oral Tablet amitript yline 75 mg tablet amitriptyline 75 mg tablet completed amitriptyline hydrochloride 75 MG Oral Tablet [place] ([facility]) Docusate Sodium 50 MG / sennosides, FPC 8.6 MG Oral Tablet sennosides 8.6 mg- docusate sodium 50 mg tablet Take 2 tablets by oral route at bedtime. sennosides 8.6 mg-docusate sodium 50 mg tablet Take 2 tablets by oral route at bedtime. 2 completed docusate sodiu m 50 MG / sennosides, FPC 8.6 MG Oral Tablet [place] ([facility]) buspirone hydrochloride 10 MG Oral Tablet buspirone 10 mg tablet buspirone 10 mg tablet completed buspirone hydr ochloride 10 MG Oral Tablet [place] ([facility]) sennosides, FPC 8.6 MG Oral Tablet [Senna-Time] senna 8.6 mg tablet senna 8.6 mg tablet completed sennosi azam, FPC 8.6 MG Oral Tablet [Senna-Time] [place] ([facility]) lamotrigine 25 MG Oral Tablet lamotrigine 25 mg tablet lamot rigine 25 mg tablet completed lamotrigine 25 MG Oral Tablet [place] ([facility]) lamotrigine 100 MG Oral Tablet lamotrigi ne 100 mg tablet TAKE ONE TABLET BY MOUTH ONCE DAILY lamotrigine 100 mg tablet TAKE ONE TABLET BY MOUTH ONC E DAILY completed lamotrigine 10 0 MG Oral Tablet [place] ([facility]) Propranolol Hydrochloride 20 MG Oral Tablet propranolo l 20 mg tablet propranolol 20 mg tablet completed propranolol hydrochloride 20 MG Oral Tablet [place] ([facility]) OneTouch Delica Plus Lancet 33 gauge [id number] completed OneTouch Delica Plus Lancet 33 gauge [place] ([facility]) Prazosin 1 MG Oral Capsule prazosin 1 mg capsule prazosin 1 mg capsule completed prazosin 1 MG Oral Capsul e [place] ([facility]) Simvastatin 10 MG Oral Tablet simvastati n 10 mg tablet TAKE ONE TABLET BY MOUTH EVERY DAY simvastatin 10 mg tablet TAKE ONE TABLET BY MOUTH EVERY DAY completed simvastatin 10 MG Oral Table t [place] ([facility]) sennosides 8.6 mg-docusate sodium 50 mg capsule Take 2 capsules by oral route at bedtime. [id number] 2 capsule(s) completed docusate sodium 50 MG / sennosides, FPC 8.6 MG Oral Capsule [place] ([facility]) OneTouch Verio Flex Meter [id number] compl eted OneTouch Verio Flex Meter [place] ([facility]) buspirone hydrochloride 15 MG Oral Table t buspirone 15 mg tablet TAKE ONE TABLET BY MOUTH THREE TIMES A DAY buspirone 15 mg tablet TAKE ONE TABLET B Y MOUTH THREE TIMES A DAY completed buspirone hydrochloride 15 MG Oral Tablet [place] ([facility]) Clonazepam 1 MG Oral Tablet clonazepam 1 mg tablet clonazepam 1 mg ta blet completed clonazepam 1 MG Oral Tablet [place] ([facility]) Amitriptyline Hydrochloride 75 MG Oral Tablet amitript yline 75 mg tablet amitriptyline 75 mg tablet completed amitriptyline hydrochloride 75 MG Oral Tablet [place] ([facility]) Amitriptyline Hydrochloride 75 MG Oral Tablet amitript yline 75 mg tablet amitriptyline 75 mg tablet completed amitriptyline hydrochloride 75 MG Oral Tablet [place] ([facility]) Clonazepam 0.5 MG Disintegrating Oral Ta blet clonazepam 0.5 mg disintegrating tablet clonazepam 0.5 mg disintegrating tablet completed clonazepam 0.5 MG Disintegrating Oral Tablet [place] ([facility]) Simvastatin 10 MG Oral Tablet simvastati n 10 mg tablet TAKE ONE TABLET BY MOUTH EVERY DAY simvastatin 10 mg tablet TAKE ONE TABLET BY MOUTH EVERY DAY completed simvastatin 10 MG Oral Table t [place] ([facility]) lamotrigine 25 MG Oral Tablet lamotrigine 25 mg tablet lamot rigine 25 mg tablet completed lamotrigine 25 MG Oral Tablet [place] ([facility]) 0.5 ML dulaglutide 1.5 MG/ML Auto-Inject or [Trulicity] Trulicity 0.75 mg/0.5 mL subcutaneous pen injector Trulicity 0.75 mg/0.5 mL subcutaneous pen injector completed 0.5 ML dulaglu tide 1.5 MG/ML Auto-Injector [Trulicity] [place] ([facility]) buspirone hydrochloride 10 MG Oral Tablet buspirone 10 mg tablet buspirone 10 mg tablet completed buspirone hydr ochloride 10 MG Oral Tablet [place] ([facility]) Clonidine Hydrochloride 0.2 MG Oral Tablet clonidine H Cl 0.2 mg tablet clonidine HCl 0.2 mg tablet completed clonidine hydrochloride 0.2 MG Oral Tablet [place] ([facility]) cefdinir 300 MG Oral Capsule cefdinir 300 mg capsule cefdinir 30 0 mg capsule completed cefdinir 300 M G Oral Capsule [place] ([facility]) BD Ultra-Fine Short Pen Needle 31 gauge x 5/16" USE DIRECTED ONCE DAILY [id number] completed BD Ultr a-Fine Short Pen Needle 31 gauge x 5/16" [place] ([facility]) buspirone hydrochloride 15 MG Oral Table t buspirone 15 mg tablet TAKE ONE TABLET BY MOUTH THREE TIMES A DAY buspirone 15 mg tablet TAKE ONE TABLET B Y MOUTH THREE TIMES A DAY completed buspirone hydrochloride 15 MG Oral Tablet [place] ([facility]) Mirtazapine 15 MG Oral Tablet mirtazapine 15 mg tablet derrick zapine 15 mg tablet completed mirtazapine 15 MG Oral Tablet [place] ([facility]) OneTouch Verio test strips USE DIRECTED UP TO TWO TIMES A DAY [id number] completed OneTouch Verio test strip s [place] ([facility]) cefdinir 300 MG Oral Capsule cefdinir 300 mg capsule cefdinir 30 0 mg capsule completed cefdinir 300 M G Oral Capsule [place] ([facility]) sennosides 8.6 mg-docusate sodium 50 mg capsule Take 2 capsules by oral route at bedtime. [id number] 2 capsule(s) completed docusate sodium 50 MG / sennosides, FPC 8.6 MG Oral Capsule [place] ([facility]) Docusate Sodium 100 MG Oral Capsule [DOK] DOK 100 mg capsule DOK 100 mg capsule completed docusate sodiu m 100 MG Oral Capsule [DOK] [place] ([facility]) Amitriptyline Hydrochloride 75 MG Oral Tablet amitript yline 75 mg tablet amitriptyline 75 mg tablet completed amitriptyline hydrochloride 75 MG Oral Tablet [place] ([facility]) buspirone hydrochloride 10 MG Oral Tablet buspirone 10 mg tablet buspirone 10 mg tablet completed buspirone hydr ochloride 10 MG Oral Tablet [place] ([facility]) benztropine mesylate 0.5 MG Oral Tablet benztropine 0. 5 mg tablet benztropine 0.5 mg tablet completed benztrop ine mesylate 0.5 MG Oral Tablet [place] ([facility]) Propranolol Hydrochloride 20 MG Oral Tablet propranolo l 20 mg tablet propranolol 20 mg tablet completed propranolol hydrochloride 20 MG Oral Tablet [place] ([facility]) cefdinir 300 MG Oral Capsule cefdinir 300 mg capsule cefdinir 30 0 mg capsule completed cefdinir 300 M G Oral Capsule [place] ([facility]) Simvastatin 10 MG Oral Tablet simvastati n 10 mg tablet TAKE ONE TABLET BY MOUTH EVERY DAY simvastatin 10 mg tablet TAKE ONE TABLET BY MOUTH EVERY DAY completed simvastatin 10 MG Oral Table t [place] ([facility]) Famotidine 20 MG Oral Tablet famotidine 20 mg tablet famotidine 20 mg tablet completed famotidine 20 MG Oral Tablet [place] ([facility]) Triamcinolone Acetonide 1 MG/ML Topical Cream triamcinolone acetonide 0.1 % topical cream triamcinolone acetonide 0.1 % topical cream completed triamcinolone acetonide 1 MG/ML Topical Cream [place] ([facility]) Azithromycin 250 MG Oral Tablet azithromycin 250 mg ta blet azithromycin 250 mg tablet completed azithromycin 25 0 MG Oral Tablet [place] ([facility]) benzonatate 200 MG Oral Capsule benzonatate 200 mg cap kenya benzonatate 200 mg capsule completed benzonatate 20 0 MG Oral Capsule [place] ([facility]) buspirone hydrochloride 7.5 MG Oral Tablet buspirone 7 .5 mg tablet buspirone 7.5 mg tablet completed buspirone h ydrochloride 7.5 MG Oral Tablet [place] ([facility]) BD Ultra-Fine Short Pen Needle 31 gauge x 5" USE ONCE DAILY [id number] completed BD Ultra-Fine Short Pen Need le 31 gauge x 02/25" [place] ([facility]) Famotidine 20 MG Oral Tablet famotidine 20 mg tablet famotidine 20 mg tablet completed famotidine 20 MG Oral Tablet [place] ([facility]) sennosides, FPC 8.6 MG Oral Tablet [Senna-Time] senna 8.6 mg tablet senna 8.6 mg tablet completed sennosi azam, FPC 8.6 MG Oral Tablet [Senna-Time] [place] ([facility]) Azithromycin 250 MG Oral Tablet azithromycin 250 mg ta blet azithromycin 250 mg tablet completed azithromycin 25 0 MG Oral Tablet [place] ([facility]) Famotidine 20 MG Oral Tablet famotidine 20 mg tablet famotidine 20 mg tablet completed famotidine 20 MG Oral Tablet [place] ([facility]) Docusate Sodium 50 MG / sennosides, FPC 8.6 MG Oral Tablet sennosides 8.6 mg- docusate sodium 50 mg tablet Take 2 tablets by oral route at bedtime. sennosides 8.6 mg-docusate sodium 50 mg tablet Take 2 tablets by oral route at bedtime. 2 completed docusate sodiu m 50 MG / sennosides, FPC 8.6 MG Oral Tablet [place] ([facility]) ziprasidone 60 MG Oral Capsule ziprasidone 60 mg capsu le ziprasidone 60 mg capsule completed ziprasidone 60 MG Oral Capsule [place] ([facility]) Ofloxacin 3 MG/ML Otic Solution ofloxaci n 0.3 % ear drops INSTILL 10 DROPS INTO AFFECTED EAR S EVERY DAY ofloxacin 0.3 % ear drops INSTILL 10 VANDANA PS INTO AFFECTED EAR S EVERY DAY completed ofloxacin 3 MG/ML Otic Solution [place] ([facility]) Amitriptyline Hydrochloride 75 MG Oral Tablet amitript yline 75 mg tablet amitriptyline 75 mg tablet completed amitriptyline hydrochloride 75 MG Oral Tablet [place] ([facility]) buspirone hydrochloride 10 MG Oral Tablet buspirone 10 mg tablet buspirone 10 mg tablet completed buspirone hydr ochloride 10 MG Oral Tablet [place] ([facility]) benzonatate 200 MG Oral Capsule benzonatate 200 mg cap kenya benzonatate 200 mg capsule completed benzonatate 20 0 MG Oral Capsule [place] ([facility]) Azithromycin 250 MG Oral Tablet azithromycin 250 mg ta blet azithromycin 250 mg tablet completed azithromycin 25 0 MG Oral Tablet [place] ([facility]) Clonazepam 0.5 MG Oral Tablet clonazepam 0.5 mg tablet TAKE ONE TABLET BY MOUTH NEEDED FOR 3 DAYS THEN ONE HALF TABLET UNTIL FINISHED MAXIMUM DAILY DOSE ONE TABLET clonazepam 0.5 mg tablet TAKE ONE TABLET BY MOUTH NEEDED FOR 3 DAYS THEN ONE HALF TABLET UNTIL FINISHED MAXIMUM DAILY DOSE ONE TABLET completed clonazepam 0.5 MG Or al Tablet [place] ([facility]) Mirtazapine 15 MG Oral Tablet mirtazapine 15 mg tablet derrick zapine 15 mg tablet completed mirtazapine 15 MG Oral Tablet [place] ([facility]) Amitriptyline Hydrochloride 50 MG Oral Tablet amitript yline 50 mg tablet amitriptyline 50 mg tablet completed amitriptyline hydrochloride 50 MG Oral Tablet [place] ([facility]) OneTouch Verio Flex Meter [id number] compl eted OneTouch Verio Flex Meter [place] ([facility]) Docusate Sodium 50 MG / sennosides, FPC 8.6 MG Oral Tablet sennosides 8.6 mg- docusate sodium 50 mg tablet Take 2 tablets by oral route at bedtime. sennosides 8.6 mg-docusate sodium 50 mg tablet Take 2 tablets by oral route at bedtime. 2 completed docusate sodiu m 50 MG / sennosides, FPC 8.6 MG Oral Tablet [place] ([facility]) cefdinir 300 MG Oral Capsule cefdinir 300 mg capsule cefdinir 30 0 mg capsule completed cefdinir 300 M G Oral Capsule [place] ([facility]) Simvastatin 10 MG Oral Tablet simvastati n 10 mg tablet TAKE ONE TABLET BY MOUTH EVERY DAY simvastatin 10 mg tablet TAKE ONE TABLET BY MOUTH EVERY DAY completed simvastatin 10 MG Oral Table t [place] ([facility]) Clonazepam 0.5 MG Disintegrating Oral Ta blet clonazepam 0.5 mg disintegrating tablet clonazepam 0.5 mg disintegrating tablet completed clonazepam 0.5 MG Disintegrating Oral Tablet [place] ([facility]) Simvastatin 10 MG Oral Tablet simvastati n 10 mg tablet TAKE ONE TABLET BY MOUTH EVERY DAY simvastatin 10 mg tablet TAKE ONE TABLET BY MOUTH EVERY DAY completed simvastatin 10 MG Oral Table t [place] ([facility]) Docusate Sodium 50 MG / sennosides, FPC 8.6 MG Oral Tablet sennosides 8.6 mg- docusate sodium 50 mg tablet Take 2 tablets by oral route at bedtime. sennosides 8.6 mg-docusate sodium 50 mg tablet Take 2 tablets by oral route at bedtime. 2 completed docusate sodiu m 50 MG / sennosides, FPC 8.6 MG Oral Tablet [place] ([facility]) Triamcinolone Acetonide 1 MG/ML Topical Cream triamcinolone acetonide 0.1 % topical cream triamcinolone acetonide 0.1 % topical cream completed triamcinolone acetonide 1 MG/ML Topical Cream [place] ([facility]) Mirtazapine 45 MG Oral Tablet mirtazapine 45 mg tablet derrick zapine 45 mg tablet completed mirtazapine 45 MG Oral Tablet [place] ([facility]) ziprasidone 60 MG Oral Capsule ziprasidone 60 mg capsu le ziprasidone 60 mg capsule completed ziprasidone 60 MG Oral Capsule [place] ([facility]) benztropine mesylate 0.5 MG Oral Tablet benztropine 0. 5 mg tablet benztropine 0.5 mg tablet completed benztrop ine mesylate 0.5 MG Oral Tablet [place] ([facility]) Docusate Sodium 50 MG / sennosides, FPC 8.6 MG Oral Tablet sennosides 8.6 mg- docusate sodium 50 mg tablet Take 2 tablets by oral route at bedtime. sennosides 8.6 mg-docusate sodium 50 mg tablet Take 2 tablets by oral route at bedtime. 2 completed docusate sodiu m 50 MG / sennosides, FPC 8.6 MG Oral Tablet [place] ([facility]) lamotrigine 25 MG Oral Tablet lamotrigine 25 mg tablet lamot rigine 25 mg tablet completed lamotrigine 25 MG Oral Tablet [place] ([facility]) Ketoconazole 20 MG/ML Medicated Shampoo ketoconazole 2 % shampoo ketoconazole 2 % shampoo completed ketoconazole 20 MG/ML Medicated Shampoo [place] ([facility]) Mirtazapine 45 MG Oral Tablet mirtazapine 45 mg tablet derrick zapine 45 mg tablet completed mirtazapine 45 MG Oral Tablet [place] ([facility]) Clonazepam 1 MG Oral Tablet clonazepam 1 mg tablet clonazepam 1 mg ta blet completed clonazepam 1 MG Oral Tablet [place] ([facility]) Clonidine Hydrochloride 0.2 MG Oral Tablet clonidine H Cl 0.2 mg tablet clonidine HCl 0.2 mg tablet completed clonidine hydrochloride 0.2 MG Oral Tablet [place] ([facility]) Docusate Sodium 50 MG / sennosides, FPC 8.6 MG Oral Tablet sennosides 8.6 mg- docusate sodium 50 mg tablet Take 2 tablets by oral route at bedtime. sennosides 8.6 mg-docusate sodium 50 mg tablet Take 2 tablets by oral route at bedtime. 2 completed docusate sodiu m 50 MG / sennosides, FPC 8.6 MG Oral Tablet [place] ([facility]) benzonatate 200 MG Oral Capsule benzonatate 200 mg cap kenya benzonatate 200 mg capsule completed benzonatate 20 0 MG Oral Capsule [place] ([facility]) Ketoconazole 20 MG/ML Medicated Shampoo ketoconazole 2 % shampoo ketoconazole 2 % shampoo completed ketoconazole 20 MG/ML Medicated Shampoo [place] ([facility]) Propranolol Hydrochloride 20 MG Oral Tablet propranolo l 20 mg tablet propranolol 20 mg tablet completed propranolol hydrochloride 20 MG Oral Tablet [place] ([facility]) Isopropyl Alcohol 0.7 ML/ML Medicated Pad Alcohol Prep Pads Alco hol Prep Pads completed isopropyl alco hol 0.7 ML/ML Medicated Pad [place] ([facility]) sennosides, FPC 8.6 MG Oral Tablet [Senna-Time] senna 8.6 mg tablet senna 8.6 mg tablet completed sennosi azam, FPC 8.6 MG Oral Tablet [Senna-Time] [place] ([facility]) cefdinir 300 MG Oral Capsule cefdinir 300 mg capsule cefdinir 30 0 mg capsule completed cefdinir 300 M G Oral Capsule [place] ([facility]) cefdinir 300 MG Oral Capsule cefdinir 300 mg capsule cefdinir 30 0 mg capsule completed cefdinir 300 M G Oral Capsule [place] ([facility]) ziprasidone 60 MG Oral Capsule ziprasidone 60 mg capsu le ziprasidone 60 mg capsule completed ziprasidone 60 MG Oral Capsule [place] ([facility]) ziprasidone 60 MG Oral Capsule ziprasidone 60 mg capsu le ziprasidone 60 mg capsule completed ziprasidone 60 MG Oral Capsule [place] ([facility]) Cephalexin 500 MG Oral Capsule cephalexin 500 mg capsu le cephalexin 500 mg capsule completed cephalexin 500 MG Oral Capsule [place] ([facility]) Clonidine Hydrochloride 0.2 MG Oral Tablet clonidine H Cl 0.2 mg tablet clonidine HCl 0.2 mg tablet completed clonidine hydrochloride 0.2 MG Oral Tablet [place] ([facility]) Docusate Sodium 100 MG Oral Capsule [DOK] DOK 100 mg capsule DOK 100 mg capsule completed docusate sodiu m 100 MG Oral Capsule [DOK] [place] ([facility]) lamotrigine 100 MG Oral Tablet lamotrigi ne 100 mg tablet TAKE ONE TABLET BY MOUTH ONCE DAILY lamotrigine 100 mg tablet TAKE ONE TABLET BY MOUTH ONC E DAILY completed lamotrigine 10 0 MG Oral Tablet [place] ([facility]) Clonazepam 0.5 MG Oral Tablet clonazepam 0.5 mg tablet TAKE ONE TABLET BY MOUTH NEEDED FOR 3 DAYS THEN ONE HALF TABLET UNTIL FINISHED MAXIMUM DAILY DOSE ONE TABLET clonazepam 0.5 mg tablet TAKE ONE TABLET BY MOUTH NEEDED FOR 3 DAYS THEN ONE HALF TABLET UNTIL FINISHED MAXIMUM DAILY DOSE ONE TABLET completed clonazepam 0.5 MG Or al Tablet [place] ([facility]) sennosides 8.6 mg-docusate sodium 50 mg capsule Take 2 capsules by oral route at bedtime. [id number] 2 capsule(s) completed docusate sodium 50 MG / sennosides, FPC 8.6 MG Oral Capsule [place] ([facility]) Trazodone Hydrochloride 50 MG Oral Table t trazodone 50 mg tablet TAKE ONE TABLET BY MOUTH EVERY DAY AT BEDTIME trazodone 50 mg tablet TAKE ONE TABLET B Y MOUTH EVERY DAY AT BEDTIME completed trazodone hydrochloride 50 MG Oral Tablet [place] ([facility]) Mirtazapine 15 MG Oral Tablet mirtazapine 15 mg tablet derrick zapine 15 mg tablet completed mirtazapine 15 MG Oral Tablet [place] ([facility]) Amitriptyline Hydrochloride 75 MG Oral Tablet amitript yline 75 mg tablet amitriptyline 75 mg tablet completed amitriptyline hydrochloride 75 MG Oral Tablet [place] ([facility]) Clonidine Hydrochloride 0.2 MG Oral Tablet clonidine H Cl 0.2 mg tablet clonidine HCl 0.2 mg tablet completed clonidine hydrochloride 0.2 MG Oral Tablet [place] ([facility]) OneTouch Verio Flex Meter [id number] compl eted OneTouch Verio Flex Meter [place] ([facility]) 0.5 ML dulaglutide 1.5 MG/ML Auto-Inject or [Trulicity] Trulicity 0.75 mg/0.5 mL subcutaneous pen injector Trulicity 0.75 mg/0.5 mL subcutaneous pen injector completed 0.5 ML dulaglu tide 1.5 MG/ML Auto-Injector [Trulicity] [place] ([facility]) lamotrigine 25 MG Oral Tablet lamotrigine 25 mg tablet lamot rigine 25 mg tablet completed lamotrigine 25 MG Oral Tablet [place] ([facility]) OneTouch Delica Plus Lancet 33 gauge [id number] completed OneTouch Delica Plus Lancet 33 gauge [place] ([facility]) Prazosin 1 MG Oral Capsule prazosin 1 mg capsule prazosin 1 mg capsule completed prazosin 1 MG Oral Capsul e [place] ([facility]) Triamcinolone Acetonide 1 MG/ML Topical Cream triamcinolone acetonide 0.1 % topical cream triamcinolone acetonide 0.1 % topical cream completed triamcinolone acetonide 1 MG/ML Topical Cream [place] ([facility]) Clonazepam 1 MG Oral Tablet clonazepam 1 mg tablet clonazepam 1 mg ta blet completed clonazepam 1 MG Oral Tablet [place] ([facility]) Clindamycin 150 MG Oral Capsule clindamycin HCl 150 mg capsule clindamycin HCl 150 mg capsule completed clindam ycin 150 MG Oral Capsule [facility] ([facility]) Simvastatin 10 MG Oral Tablet simvastati n 10 mg tablet TAKE ONE TABLET BY MOUTH EVERY DAY simvastatin 10 mg tablet TAKE ONE TABLET BY MOUTH EVERY DAY completed simvastatin 10 MG Oral Table t [place] ([facility]) benzonatate 200 MG Oral Capsule benzonatate 200 mg cap k[place] benzonatate 200 mg capsule completed benzonatate 20 0 MG Oral Capsule [place] ([facility]) Famotidine 20 MG Oral Tablet famotidine 20 mg tablet famotidine 20 mg tablet completed famotidine 20 MG Oral Tablet [place] ([facility]) benzonatate 200 MG Oral Capsule benzonatate 200 mg cap kenya benzonatate 200 mg capsule completed benzonatate 20 0 MG Oral Capsule [place] ([facility]) buspirone hydrochloride 10 MG Oral Tablet buspirone 10 mg tablet buspirone 10 mg tablet completed buspirone hydr ochloride 10 MG Oral Tablet [place] ([facility]) Simvastatin 10 MG Oral Tablet simvastati n 10 mg tablet TAKE ONE TABLET BY MOUTH EVERY DAY simvastatin 10 mg tablet TAKE ONE TABLET BY MOUTH EVERY DAY completed simvastatin 10 MG Oral Table t [place] ([facility]) OneTouch Verio Flex Meter [id number] compl eted OneTouch Verio Flex Meter [place] ([facility]) 0.5 ML dulaglutide 1.5 MG/ML Auto-Inject or [Trulicity] Trulicity 0.75 mg/0.5 mL subcutaneous pen injector Trulicity 0.75 mg/0.5 mL subcutaneous pen injector completed 0.5 ML dulaglu tide 1.5 MG/ML Auto-Injector [Trulicity] [place] ([facility]) Prazosin 1 MG Oral Capsule prazosin 1 mg capsule prazosin 1 mg capsule completed prazosin 1 MG Oral Capsul e [place] ([facility]) Insurance Providers Payer name Policy type / Coverage type Policy ID Covered libertarian ID Covered libertarian's relationship to talamantes Policy Talamantes Plan Information [facility] COMMUNITY PLAN [id number] SELF [id number] Mediaspectrum DEVEN [id number] SELF [id number] HMO BLUE [id number] SP [id number] BLUE CROSS VANESSA PLAN [id number] SP [id number] [facility] COMMUNITY PLAN MCDHMO [id number] SP [id number] Hmo Blue Option/Medicaid Health Maintenance Organization (HMO) V [id number] Self [id number] Hmo Blue Option/Medicaid Health Maintenance Organization (HMO) V [id number] Self [id number] Hmo Blue Option/Medicaid Health Maintenance Organization (HMO) V [id number] [facility] Medigap Part B [id number] Self [id number] Medicaid S [id number] S [id number] Managed Care BCBS O [id number] S [id number] Medicaid S [id number] S [id number] Medicaid S [id number] S [id number] [facility] Essential Plan P [id number] S [id number] Managed Care - Community Plan [facility] P [id number] S [id number] Medicaid S [id number] S [id number] Managed Care - Community Plan [facility] P [id number] S [id number] Medicaid S [id number] S [id number] Managed Care - Community Plan [facility] P [id number] S [id number] Managed Care - UHC Community Plan P [id number] S [id number] Medicaid S [id number] S [id number] Managed Care - UHC Community Plan P [id number] S [id number] Medicaid S [id number] S [id number] BCBS Federal O [id number] S [id number] [facility](MCAID) P UNAVAILABLE [id number] S UNAVAILABLE EXCELLUS BCBS P [id number] S [id number] Self Pay O [id number] S [id number] UNHC COMMUNITY PLAN MCDO [id number] SP [id number] UNHC COMMUNITY PLAN MCDO [id number] SP [id number] [facility] O [id number] S [id number] [facility] Health Maintenance Organization (HMO) [id number] Self [id number] MEDICAID [id number] SP [id number] Managed Care - Community Plan [facility] P [id number] S [id number] [facility] Health Maintenance Organization (HMO) [id number] [facility] Health Maintenance Organization (O) [id number] Self [id number] MEDICAID [id number] SP [id number] UN COMMUNITY PLAN MCDO [id number] SP [id number] [facility] Comm Plan Medicaid F [id number] SELF [id number] Managed Care - Community Plan [facility] P [id number] S [id number] UNHC AMERICHOICE XIX -HMO [id number] [id number] [facility] O [id number] S [id number] MEDICAID [id number] SP [id number] [facility] HMO/[facility] FAMILY NO CO PAY [id number] P [id number] SELFPAY P HMO BLUE/MEDICAID [id number] P [id number] MEDICAID [id number] SP [id number] [facility] [id number] SP [id number] Problems, Conditions, and Diagnoses Code Display Name Description Problem Type Effective Dates Data Source(s) F17.200 Nicotine dependence, unspecified, uncomp licated Tobacco Use Disorder, Moderate Condition 07/02/2021 12:00:00 AM EDT [facility] ([facility]) 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 Condition 07/02/2021 12:00:00 AM EDT [facility] ([facility]) 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 Somatic Symptom D isorder Condition 07/02/2021 12:00:00 AM EDT [facility] ([facility]) F31.63 Bipolar disorder, current ep isode mixed, severe, without psychotic features Bipolar disord, crnt epsd mixed, severe, w/o psych features Condition 07/02/2021 12:00:00 AM EDT [facility] ([facility]) [id number] Primary erectile dysfunction Primary Erectile Dysfunct ion Problem 06/12/2021 12:00:00 AM EDT [facility] ([facility]) 294626057 Primary erectile dysfunction Primary Erectile Dysfunct ion Problem 06/12/2021 12:00:00 AM EDT [facility] ([facility]) 94241492 Acute otitis externa Acute Otitis Externa Problem 05/02/2021 12:00:00 AM EDT [facility] ([facility]) 48456989 Acute otitis externa Acute Otitis Externa Problem 05/02/2021 12:00:00 AM EDT [facility] ([facility]) 57847882 Acute otitis externa Acute Otitis Externa Problem 05/02/2021 12:00:00 AM EDT [place] ([facility]) 87295380 Chest pain Chest Pain Problem 03/22/2021 12:00:00 AM ED T [place] ([facility]) [id number] Tobacco user Tobacco User Problem 03/22/2021 12:00:00 A M EDT [place] ([facility]) 08177868 Chest pain Chest Pain Problem 03/22/2021 12:00:00 AM ED T [place] ([facility]) 006953929 Tobacco user Tobacco User Problem 03/22/2021 12:00:00 A M EDT [place] ([facility]) [id number] Chest pain Chest Pain Problem 03/22/2021 12:00:00 AM ED T [place] ([facility]) [id number] Tobacco user Tobacco User Problem 03/22/2021 12:00:00 A M EDT [place] ([facility]) 87823052 Chest pain Chest Pain Problem 03/22/2021 12:00:00 AM ED T [place] ([facility]) 592667207 Tobacco user Tobacco User Problem 03/22/2021 12:00:00 A M EDT [place] ([facility]) [id number] Chest pain Chest Pain Problem 03/22/2021 12:00:00 AM ED T [place] ([facility]) [id number] Tobacco user Tobacco User Problem 03/22/2021 12:00:00 A M EDT [place] ([facility]) [id number] Chest pain Chest Pain Problem 03/22/2021 12:00:00 AM ED T [place] ([facility]) [id number] Tobacco user Tobacco User Problem 03/22/2021 12:00:00 A M EDT [place] ([facility]) F17.200 Nicotine dependence, unspecified, uncomp licated Tobacco Use Disorder, Moderate Condition 12/07/2020 12:00:00 AM EST [facility] ([facility]) 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 Condition 12/07/2020 12:00:00 AM EST [facility] ([facility]) E11.9 Type 2 diabetes mellitus Type 2 diabetes mellitus Prob tiffanie 10/07/2020 12:00:00 AM EST [facility] ([facility] L60.0 Ingrowing nail Ingrowing nail Problem 10/07/2020 12:00: 00 AM EST [facility] ([facility] L03.032 Cellulitis of left toe Cellulitis of left toe Problem 10/07/2020 12:00:00 AM EST [facility] ([facility] L03.031 Cellulitis of right toe Cellulitis of right toe Proble m 10/07/2020 12:00:00 AM EST [facility] ([facility] 505915181 Bilateral earache Bilateral Earache Problem 10/03 12:00:00 AM EST [facility] ([facility]) 556933746 Bilateral earache Bilateral Earache Problem 10/03 12:00:00 AM EST [facility] ([facility]) 116979259 Bilateral earache Bilateral Earache Problem 10/03 12:00:00 AM EST [facility] ([facility]) 208425599 Bilateral earache Bilateral Earache Problem 10/03 12:00:00 AM EST [facility] ([facility]) 401033890 Bilateral earache Bilateral Earache Problem 10/03 12:00:00 AM EST [facility] ([facility]) 085828332 Bilateral earache Bilateral Earache Problem 10/03 12:00:00 AM EST [facility] ([facility]) 962834107 Bilateral earache Bilateral Earache Problem 10/03 12:00:00 AM EST [place] ([facility]) 831841362 Bilateral earache Bilateral Earache Problem 10/03 12:00:00 AM EST [facility] ([facility]) 754767424 Bilateral earache Bilateral Earache Problem 10/03 12:00:00 AM EST [facility] ([facility]) 395688927 Bilateral earache Bilateral Earache Problem 10/03 12:00:00 AM EST [facility] ([facility]) 877718201 Bilateral earache Bilateral Earache Problem 10/03 12:00:00 AM EST [place] ([facility]) 750376021 Bilateral earache Bilateral Earache Problem 10/03 12:00:00 AM EST [facility] ([facility]) [id number] Bilateral earache Bilateral Earache Problem 10/03 12:00:00 AM EST [facility] ([facility]) [id number] Bilateral earache Bilateral Earache Problem 10/03 12:00:00 AM EST [facility] ([facility]) 976698002 Paronychia of toe Paronychia of Toe Problem 09/01 12:00:00 AM EST [facility] ([facility]) 600910675 Paronychia of toe Paronychia of Toe Problem 09/01 12:00:00 AM EST [facility] ([facility]) [id number] Paronychia of toe Paronychia of Toe Problem 09/01 12:00:00 AM EST [facility] ([facility]) [id number] Paronychia of toe Paronychia of Toe Problem 09/01 12:00:00 AM EST [facility] ([facility]) [id number] Paronychia of toe Paronychia of Toe Problem 09/01 12:00:00 AM EST [facility] ([facility]) [id number] Paronychia of toe Paronychia of Toe Problem 09/01 12:00:00 AM EST [facility] ([facility]) [id number] Paronychia of toe Paronychia of Toe Problem 09/01 12:00:00 AM EST [facility] ([facility]) 553283755 Paronychia of toe Paronychia of Toe Problem 09/01 12:00:00 AM EST [facility] ([facility]) [id number] Paronychia of toe Paronychia of Toe Problem 09/01 12:00:00 AM EST [facility] ([facility]) [id number] Paronychia of toe Paronychia of Toe Problem 09/01 12:00:00 AM EST [facility] ([facility]) [id number] Paronychia of toe Paronychia of Toe Problem 09/01 12:00:00 AM EST [facility] ([facility]) [id number] Paronychia of toe Paronychia of Toe Problem 09/01 12:00:00 AM EST [facility] ([facility]) [id number] Paronychia of toe Paronychia of Toe Problem 09/01 12:00:00 AM EST [facility] ([facility]) [id number] Paronychia of toe Paronychia of Toe Problem 09/01 12:00:00 AM EST [facility] ([facility]) [id number] Paronychia of toe Paronychia of Toe Problem 09/01 12:00:00 AM EST [facility] ([facility]) F17.219 Nicotine dependence, cigaret mary, with unspecified nicotine-induced disorders Nicotine dependence, cigarettes, wunsp disorders Condition 08/17/2020 12:00:00 AM EST [facility] ([facility]) 550779710 Type 2 diabetes mellitus without complic ation Type 2 Diabetes Mellitus without Complication Problem 08/10/2020 12:00:00 AM EDT [facility] ([facility]) 063990265 Type 2 diabetes mellitus without complic ation Type 2 Diabetes Mellitus without Complication Problem 08/10/2020 12:00:00 AM EDT [place] ([facility]) 086379064 Type 2 diabetes mellitus without complic ation Type 2 Diabetes Mellitus without Complication Problem 08/10/2020 12:00:00 AM EDT [place] ([facility]) 452522731 Type 2 diabetes mellitus without complic ation Type 2 Diabetes Mellitus without Complication Problem 08/10/2020 12:00:00 AM EDT [place] ([facility]) 940051820 Type 2 diabetes mellitus without complic ation Type 2 Diabetes Mellitus without Complication Problem 08/10/2020 12:00:00 AM EDT [place] ([facility]) 187192727 Type 2 diabetes mellitus without complic ation Type 2 Diabetes Mellitus without Complication Problem 08/10/2020 12:00:00 AM EDT [place] ([facility]) [id number] Type 2 diabetes mellitus without complic ation Type 2 Diabetes Mellitus without Complication Problem 08/10/2020 12:00:00 AM EDT [place] ([facility]) [id number] Type 2 diabetes mellitus without complic ation Type 2 Diabetes Mellitus without Complication Problem 08/10/2020 12:00:00 AM EDT [place] ([facility]) [id number] Type 2 diabetes mellitus without complic ation Type 2 Diabetes Mellitus without Complication Problem 08/10/2020 12:00:00 AM EDT [place] ([facility]) 375858889 Type 2 diabetes mellitus without complic ation Type 2 Diabetes Mellitus without Complication Problem 08/10/2020 12:00:00 AM EDT [place] ([facility]) 746727622 Type 2 diabetes mellitus without complic ation Type 2 Diabetes Mellitus without Complication Problem 08/10/2020 12:00:00 AM EDT [facility] ([facility]) [id number] Type 2 diabetes mellitus without complic ation Type 2 Diabetes Mellitus without Complication Problem 08/10/2020 12:00:00 AM EDT [facility] ([facility]) [id number] Type 2 diabetes mellitus without complic ation Type 2 Diabetes Mellitus without Complication Problem 08/10/2020 12:00:00 AM EDT [place] ([facility]) [id number] Type 2 diabetes mellitus without complic ation Type 2 Diabetes Mellitus without Complication Problem 08/10/2020 12:00:00 AM EDT [place] ([facility]) 632441334 Type 2 diabetes mellitus without complic ation Type 2 Diabetes Mellitus without Complication Problem 08/10/2020 12:00:00 AM EDT [facility] ([facility]) 538900513 Type 2 diabetes mellitus without complic ation Type 2 Diabetes Mellitus without Complication Problem 08/10/2020 12:00:00 AM EDT [facility] ([facility]) 221372916 Type 2 diabetes mellitus without complic ation Type 2 Diabetes Mellitus without Complication Problem 08/10/2020 12:00:00 AM EDT [place] ([facility]) [id number] Fitting procedure Fitting Procedure Problem 07/27 05:54:54 PM EDT [facility] ([facility]) [id number] Fitting procedure Fitting Procedure Problem 07/27 05:54:54 PM EDT [facility] ([facility]) [id number] Fitting procedure Fitting Procedure Problem 07/27 05:54:54 PM EDT [facility] ([facility]) 414208069 Fitting procedure Fitting Procedure Problem 07/27 05:54:54 PM EDT [facility] ([facility]) [id number] Fitting procedure Fitting Procedure Problem 07/27 05:54:54 PM EDT [facility] ([facility]) 675077178 Fitting procedure Fitting Procedure Problem 07/27 05:54:54 PM EDT [facility] ([facility]) [id number] Fitting procedure Fitting Procedure Problem 07/27 05:54:54 PM EDT [facility] ([facility]) [id number] Fitting procedure Fitting Procedure Problem 07/27 05:54:54 PM EDT [facility] ([facility]) 314558809 Fitting procedure Fitting Procedure Problem 07/27 05:54:54 PM EDT [facility] ([facility]) 623057802 Fitting procedure Fitting Procedure Problem 07/27 05:54:54 PM EDT [facility] ([facility]) [id number] Fitting procedure Fitting Procedure Problem 07/27 05:54:54 PM EDT [facility] ([facility]) [id number] Fitting procedure Fitting Procedure Problem 07/27 05:54:54 PM EDT [facility] ([facility]) [id number] Fitting procedure Fitting Procedure Problem 07/27 05:54:54 PM EDT [facility] ([facility]) [id number] Fitting procedure Fitting Procedure Problem 07/27 05:54:54 PM EDT [facility] ([facility]) [id number] Fitting procedure Fitting Procedure Problem 07/27 05:54:54 PM EDT [facility] ([facility]) [id number] Fitting procedure Fitting Procedure Problem 07/27 05:54:54 PM EDT [facility] ([facility]) [id number] Fitting procedure Fitting Procedure Problem 07/27 05:54:54 PM EDT [facility] ([facility]) 699152147 Finding of esophagus Finding of Esophagus Problem 07/27/2020 05:54:53 PM EDT [facility] ([facility]) 419367363 SNOMED CT Concept SNOMED CT Concept Problem 07/27 05:54:53 PM EDT [facility] ([facility]) 844097589 Asthma Asthma Problem 07/27/2020 05:54:53 PM ED T [facility] ([facility]) 00702450 Depressive disorder Depressive Disorder Problem 1 05:54:53 PM EDT [facility] ([facility]) 58170372 Viral hepatitis C Viral Hepatitis C Problem 07/27/2020 05:54:53 PM EDT [facility] ([facility]) 283371546 Finding of esophagus Finding of Esophagus Problem 07/27/2020 05:54:53 PM EDT [facility] ([facility]) 781565580 SNOMED CT Concept SNOMED CT Concept Problem 07/27 05:54:53 PM EDT [facility] ([facility]) 993563243 Asthma Asthma Problem 07/27/2020 05:54:53 PM ED T [facility] ([facility]) 80130477 Depressive disorder Depressive Disorder Problem 1 05:54:53 PM EDT [facility] ([facility]) 82876912 Viral hepatitis C Viral Hepatitis C Problem 07/27/2020 05:54:53 PM EDT [facility] ([facility]) 090600186 Finding of esophagus Finding of Esophagus Problem 07/27/2020 05:54:53 PM EDT [facility] ([facility]) 560225076 SNOMED CT Concept SNOMED CT Concept Problem 07/27 05:54:53 PM EDT [facility] ([facility]) 936088034 Asthma Asthma Problem 07/27/2020 05:54:53 PM ED T [facility] ([facility]) 71396055 Depressive disorder Depressive Disorder Problem 1 05:54:53 PM EDT [facility] ([facility]) 54763908 Viral hepatitis C Viral Hepatitis C Problem 07/27/2020 05:54:53 PM EDT [facility] ([facility]) 606525950 Finding of esophagus Finding of Esophagus Problem 07/27/2020 05:54:53 PM EDT [facility] ([facility]) 416211294 SNOMED CT Concept SNOMED CT Concept Problem 07/27 05:54:53 PM EDT [facility] ([facility]) 025173783 Asthma Asthma Problem 07/27/2020 05:54:53 PM ED T [facility] ([facility]) 48446407 Depressive disorder Depressive Disorder Problem 1 05:54:53 PM EDT [facility] ([facility]) 64773926 Viral hepatitis C Viral Hepatitis C Problem 07/27/2020 05:54:53 PM EDT [facility] ([facility]) [id number] Finding of esophagus Finding of Esophagus Problem 07/27/2020 05:54:53 PM EDT [facility] ([facility]) 201173049 SNOMED CT Concept SNOMED CT Concept Problem 07/27 05:54:53 PM EDT [facility] ([facility]) 127335174 Asthma Asthma Problem 07/27/2020 05:54:53 PM ED T [facility] ([facility]) 44244064 Depressive disorder Depressive Disorder Problem 1 05:54:53 PM EDT [facility] ([facility]) 20589313 Viral hepatitis C Viral Hepatitis C Problem 07/27/2020 05:54:53 PM EDT [facility] ([facility]) 773339788 Finding of esophagus Finding of Esophagus Problem 07/27/2020 05:54:53 PM EDT [facility] ([facility]) 831489853 SNOMED CT Concept SNOMED CT Concept Problem 07/27 05:54:53 PM EDT [facility] ([facility]) 206249938 Asthma Asthma Problem 07/27/2020 05:54:53 PM ED T [facility] ([facility]) 25380946 Depressive disorder Depressive Disorder Problem 1 05:54:53 PM EDT [facility] ([facility]) 15026339 Viral hepatitis C Viral Hepatitis C Problem 07/27/2020 05:54:53 PM EDT [facility] ([facility]) [id number] Finding of esophagus Finding of Esophagus Problem 07/27/2020 05:54:53 PM EDT [facility] ([facility]) 047018124 SNOMED CT Concept SNOMED CT Concept Problem 07/27 05:54:53 PM EDT [facility] ([facility]) 082203857 Asthma Asthma Problem 07/27/2020 05:54:53 PM ED T [facility] ([facility]) 20093252 Depressive disorder Depressive Disorder Problem 1 05:54:53 PM EDT [facility] ([facility]) [id number] Viral hepatitis C Viral Hepatitis C Problem 07/27/2020 05:54:53 PM EDT [facility] ([facility]) 743517135 Finding of esophagus Finding of Esophagus Problem 07/27/2020 05:54:53 PM EDT [facility] ([facility]) 367831479 SNOMED CT Concept SNOMED CT Concept Problem 07/27 05:54:53 PM EDT [facility] ([facility]) 754340016 Asthma Asthma Problem 07/27/2020 05:54:53 PM ED T [facility] ([facility]) 19560976 Depressive disorder Depressive Disorder Problem 1 05:54:53 PM EDT [facility] ([facility]) 13911852 Viral hepatitis C Viral Hepatitis C Problem 07/27/2020 05:54:53 PM EDT [facility] ([facility]) 368710604 Finding of esophagus Finding of Esophagus Problem 07/27/2020 05:54:53 PM EDT [facility] ([facility]) [id number] SNOMED CT Concept SNOMED CT Concept Problem 07/27 05:54:53 PM EDT [facility] ([facility]) 916023265 Asthma Asthma Problem 07/27/2020 05:54:53 PM ED T [facility] ([facility]) 16308591 Depressive disorder Depressive Disorder Problem 1 05:54:53 PM EDT [facility] ([facility]) [id number] Viral hepatitis C Viral Hepatitis C Problem 07/27/2020 05:54:53 PM EDT [facility] ([facility]) 854787644 Finding of esophagus Finding of Esophagus Problem 07/27/2020 05:54:53 PM EDT [facility] ([facility]) 115807882 SNOMED CT Concept SNOMED CT Concept Problem 07/27 05:54:53 PM EDT [facility] ([facility]) 827517214 Asthma Asthma Problem 07/27/2020 05:54:53 PM ED T [facility] ([facility]) 48273674 Depressive disorder Depressive Disorder Problem 1 05:54:53 PM EDT [facility] ([facility]) 72348667 Viral hepatitis C Viral Hepatitis C Problem 07/27/2020 05:54:53 PM EDT [facility] ([facility]) 070503079 Finding of esophagus Finding of Esophagus Problem 07/27/2020 05:54:53 PM EDT [facility] ([facility]) 733526430 SNOMED CT Concept SNOMED CT Concept Problem 07/27 05:54:53 PM EDT [facility] ([facility]) 257204308 Asthma Asthma Problem 07/27/2020 05:54:53 PM ED T [facility] ([facility]) 52731429 Depressive disorder Depressive Disorder Problem 1 05:54:53 PM EDT [facility] ([facility]) 36328714 Viral hepatitis C Viral Hepatitis C Problem 07/27/2020 05:54:53 PM EDT [facility] ([facility]) 518938992 Finding of esophagus Finding of Esophagus Problem 07/27/2020 05:54:53 PM EDT [facility] ([facility]) 445086642 SNOMED CT Concept SNOMED CT Concept Problem 07/27 05:54:53 PM EDT JEFF ([facility] er) [id number] Asthma Asthma Problem 07/27/2020 05:54:53 PM ED T JFEF ([facility]) [id number] Depressive disorder Depressive Disorder Problem 1 05:54:53 PM EDT JEFF ([facility] er) [id number] Viral hepatitis C Viral Hepatitis C Problem 07/27/2020 05:54:53 PM EDT JEFF ([facility]) [id number] Finding of esophagus Finding of Esophagus Problem 07/27/2020 05:54:53 PM EDT JEFF ([facility] er) [id number] SNOMED CT Concept SNOMED CT Concept Problem 07/27 05:54:53 PM EDT JEFF ([facility] er) [id number] Asthma Asthma Problem 07/27/2020 05:54:53 PM ED T JEFF ([facility]) 12395635 Depressive disorder Depressive Disorder Problem 1 05:54:53 PM EDT JEFF ([facility] er) [id number] Viral hepatitis C Viral Hepatitis C Problem 07/27/2020 05:54:53 PM EDT JEFF ([facility]) [id number] Finding of esophagus Finding of Esophagus Problem 07/27/2020 05:54:53 PM EDT JEFF ([facility] er) [id number] SNOMED CT Concept SNOMED CT Concept Problem 07/27 05:54:53 PM EDT JEFF ([facility]) [id number] Asthma Asthma Problem 07/27/2020 05:54:53 PM ED T JEFF ([facility]) [id number] Depressive disorder Depressive Disorder Problem 1 05:54:53 PM EDT JEFF ([facility]) [id number] Viral hepatitis C Viral Hepatitis C Problem 07/27/2020 05:54:53 PM EDT JEFF ([facility]) 43349404 Viral hepatitis C Viral Hepatitis C Problem 07/27/2020 05:54:53 PM EDT JEFF ([facility]) [id number] Finding of esophagus Finding of Esophagus Problem 07/27/2020 05:54:53 PM EDT JEFF ([facility]) [id number] SNOMED CT Concept SNOMED CT Concept Problem 07/27 05:54:53 PM EDT JEFF ([facility]) [id number] Asthma Asthma Problem 07/27/2020 05:54:53 PM ED T JEFF ([facility]) [id number] Depressive disorder Depressive Disorder Problem 1 05:54:53 PM EDT JEFF ([facility]) 96014785 Viral hepatitis C Viral Hepatitis C Problem 07/27/2020 05:54:53 PM EDT JEFF ([facility]) [id number] Finding of esophagus Finding of Esophagus Problem 07/27/2020 05:54:53 PM EDT JEFF ([facility]) [id number] SNOMED CT Concept SNOMED CT Concept Problem 07/27 05:54:53 PM EDT JEFF ([facility]) [id number] Asthma Asthma Problem 07/27/2020 05:54:53 PM ED T JEFF ([facility]) 36262449 Depressive disorder Depressive Disorder Problem 1 05:54:53 PM EDT JEFF ([facility]) 39806952 Viral hepatitis C Viral Hepatitis C Problem 07/27/2020 05:54:53 PM EDT JEFF ([facility]) 104548509 Finding of esophagus Finding of Esophagus Problem 07/27/2020 05:54:53 PM EDT JEFF ([facility] er) [id number] SNOMED CT Concept SNOMED CT Concept Problem 07/27 05:54:53 PM EDT JEFF ([facility] er) [id number] Asthma Asthma Problem 07/27/2020 05:54:53 PM ED T JEFF ([facility]) [id number] Depressive disorder Depressive Disorder Problem 1 05:54:53 PM EDT JEFF ([facility] er) [id number] Clinical finding Clinical Finding Problem 019 12:00:00 AM EST - 03/02/2021 12:00:00 AM EDT JEFF ([facility]) [id number] Clinical finding Clinical Finding Problem 019 12:00:00 AM EST - 03/02/2021 12:00:00 AM EDT JEFF ([facility] er) [id number] Clinical finding Clinical Finding Problem 019 12:00:00 AM EST - 03/02/2021 12:00:00 AM EDT JEFF ([facility] er) [id number] Clinical finding Clinical Finding Problem 019 12:00:00 AM EST - 03/02/2021 12:00:00 AM EDT JEFF ([facility]) [id number] Clinical finding Clinical Finding Problem 019 12:00:00 AM EST - 03/02/2021 12:00:00 AM EDT JEFF ([facility] er) [id number] Clinical finding Clinical Finding Problem 019 12:00:00 AM EST - 03/02/2021 12:00:00 AM EDT JEFF ([facility] er) [id number] Clinical finding Clinical Finding Problem 019 12:00:00 AM EST - 03/02/2021 12:00:00 AM EDT JEFF ([facility]) [id number] Acute maxillary sinusitis Acute Maxillary Sinusitis Pr oblem 04/28/2018 12:00:00 AM EDT - 03/02/2021 12:00:00 AM EDT JEFF ([facility]) [id number] Acute maxillary sinusitis Acute Maxillary Sinusitis Pr oblem 04/28/2018 12:00:00 AM EDT - 03/02/2021 12:00:00 AM EDT JEFF ([facility]) [id number] Acute maxillary sinusitis Acute Maxillary Sinusitis Pr oblem 04/28/2018 12:00:00 AM EDT - 03/02/2021 12:00:00 AM EDT JEFF ([facility]) [id number] Acute maxillary sinusitis Acute Maxillary Sinusitis Pr oblem 04/28/2018 12:00:00 AM EDT - 03/02/2021 12:00:00 AM EDT JEFF ([facility]) [id number] Acute maxillary sinusitis Acute Maxillary Sinusitis Pr oblem 04/28/2018 12:00:00 AM EDT - 03/02/2021 12:00:00 AM EDT JEFF ([facility]) [id number] Acute maxillary sinusitis Acute Maxillary Sinusitis Pr oblem 04/28/2018 12:00:00 AM EDT - 03/02/2021 12:00:00 AM EDT JEFF ([facility]) [id number] Acute maxillary sinusitis Acute Maxillary Sinusitis Pr oblem 04/28/2018 12:00:00 AM EDT - 03/02/2021 12:00:00 AM EDT JEFF ([facility]) [id number] Abdominal pain Abdominal Pain Problem 06/15/2015 12:00:00 AM EDT - 03/02/2021 12:00:00 AM EDT JEFF ([facility] er) [id number] Abdominal pain Abdominal Pain Problem 06/15/2015 12:00:00 AM EDT - 03/02/2021 12:00:00 AM EDT JEFF ([facility] er) [id number] Abdominal pain Abdominal Pain Problem 06/15/2015 12:00:00 AM EDT - 03/02/2021 12:00:00 AM EDT JEFF ([facility] er) [id number] Abdominal pain Abdominal Pain Problem 06/15/2015 12:00:00 AM EDT - 03/02/2021 12:00:00 AM EDT JEFF ([facility] er) [id number] Abdominal pain Abdominal Pain Problem 06/15/2015 12:00:00 AM EDT - 03/02/2021 12:00:00 AM EDT JEFF ([facility] er) [id number] Abdominal pain Abdominal Pain Problem 06/15/2015 12:00:00 AM EDT - 03/02/2021 12:00:00 AM EDT JEFF ([facility] er) [id number] Abdominal pain Abdominal Pain Problem 06/15/2015 12:00:00 AM EDT - 03/02/2021 12:00:00 AM EDT JEFF ([facility] er) [id number] Pain Pain Problem 09/14/2012 12:0 0:00 AM EST - 03/02/2021 12:00:00 AM EDT JEFF ([facility] er) [id number] Clinical finding Clinical Finding Problem 012 12:00:00 AM EST - 03/02/2021 12:00:00 AM EDT JEFF ([facility] er) [id number] Chronic constipation Chronic Constipation Problem 09/14/2012 12:00:00 AM EST - 03/02/2021 12:00:00 AM EDT JEFF ([facility] er) [id number] Clinical finding Clinical Finding Problem 012 12:00:00 AM EST - 03/02/2021 12:00:00 AM EDT JEFF ([facility] er) [id number] Chronic constipation Chronic Constipation Problem 09/14/2012 12:00:00 AM EST - 03/02/2021 12:00:00 AM EDT JEFF ([facility] er) [id number] Clinical finding Clinical Finding Problem 012 12:00:00 AM EST - 03/02/2021 12:00:00 AM EDT JEFF ([facility] er) [id number] Chronic constipation Chronic Constipation Problem 09/14/2012 12:00:00 AM EST - 03/02/2021 12:00:00 AM EDT JEFF ([facility] er) [id number] Chronic constipation Chronic Constipation Problem 09/14/2012 12:00:00 AM EST - 03/02/2021 12:00:00 AM EDT JEFF ([facility]) [id number] Clinical finding Clinical Finding Problem 012 12:00:00 AM EST - 03/02/2021 12:00:00 AM EDT JEFF ([facility]) [id number] Chronic constipation Chronic Constipation Problem 09/14/2012 12:00:00 AM EST - 03/02/2021 12:00:00 AM EDT JEFF ([facility]) [id number] Clinical finding Clinical Finding Problem 012 12:00:00 AM EST - 03/02/2021 12:00:00 AM EDT JEFF ([facility]) [id number] Chronic constipation Chronic Constipation Problem 09/14/2012 12:00:00 AM EST - 03/02/2021 12:00:00 AM EDT JEFF ([facility]) [id number] Clinical finding Clinical Finding Problem 012 12:00:00 AM EST - 03/02/2021 12:00:00 AM EDT JEFF ([facility]) [id number] Chronic constipation Chronic Constipation Problem 09/14/2012 12:00:00 AM EST - 03/02/2021 12:00:00 AM EDT JEFF ([facility]) Surgeries/Procedures Procedure Description Date Indications Data Source(s) Extended Individual Psychotherapy - 45 min 07/02/2021 12:00:00 AM EDT - 07/02/2021 12:00:00 AM EDT [facility] ([facility]) Extended Individual Psychotherapy - 45 min 12:00:00 AM EDT [facility] ([facility]) TEMPMHCTelemed 30" Psychotherapy 12:00:00 AM EDT - 06/14/2021 12:00:00 AM EDT [facility] ([facility]) TEMPMHCTelemed 30" Psychotherapy 06/14/2021 12:00:00 A M EDT [facility] ([facility]) Brief Individual Psychotherapy - 30 min 05/31/2021 12:00:00 AM EDT - 05/31/2021 12:00:00 AM EDT [facility] ([facility]) Brief Individual Psychotherapy - 30 min 05/31/2021 12: 00:00 AM EDT [facility] ([facility]) MHCTelemed E/M Lvl 5--Est pt 05/30/2021 12:00:00 AM EDT - 05/30/2021 12:00:00 AM EDT [facility] ([facility]) MHCTelemed E/M Lvl 5--Est pt 05/30/2021 12:00:00 AM ED T [facility] ([facility]) [id number]"Psychotherapy 12:00:00 AM EDT - 05/01/2021 12:00:00 AM EDT [facility] ([facility]) [id number]"Psychotherapy 05/01/2021 12:00:00 AM EDT [facility] ([facility]) Extended Individual Psychotherapy - 45 min 03/26/2021 12:00:00 AM EDT - 03/26/2021 12:00:00 AM EDT [facility] ([facility]) Extended Individual Psychotherapy - 45 min 12:00:00 AM EDT [facility] ([facility]) INCISION & DRAINAGE ABSCESS SIMPLE/SINGLE 03/06/2021 1 2:00:00 AM EDT MEDENT ([facility] OFFICE OUTPATIENT VISIT 15 MINUTES 03/06/2021 12:00:00 AM EDT MEDENT ([facility] Extended Individual Psychotherapy - 45 min 02/26/2021 12:00:00 AM EDT - 02/26/2021 12:00:00 AM EDT [facility] ([facility]) Extended Individual Psychotherapy - 45 min 12:00:00 AM EDT [facility] ([facility]) Brief Individual Psychotherapy - 30 min 02/07/2021 12:00:00 AM EDT - 02/07/2021 12:00:00 AM EDT [facility] ([facility]) Brief Individual Psychotherapy - 30 min 02/07/2021 12: 00:00 AM EDT [facility] ([facility]) [id number]"Psychotherapy 12:00:00 AM EDT - 01/18/2021 12:00:00 AM EDT [facility] ([facility]) [id number]"Psychotherapy 01/18/2021 12:00:00 AM EDT [facility] ([facility]) Extended Individual Psychotherapy - 45 min 12/28/2020 12:00:00 AM EDT - 12/28/2020 12:00:00 AM EDT [facility] ([facility]) Extended Individual Psychotherapy - 45 min 12:00:00 AM EDT [facility] ([facility]) MHC Telemed E/M Lvl 3--Est pt 12/11/2020 12:00:00 AM EST - 12/11/2020 12:00:00 AM EST [facility] ([facility]) Telemed A/O 30" 12/11/2020 12:00:00 AM EST [facility] ([facility]) MHC Telemed E/M Lvl 3--Est pt 12/11/2020 12:00:[address] [facility] ([facility]) Extended Individual Psychotherapy - 45 min 12/07/2020 12:00:00 AM EST - 12/07/2020 12:00:00 AM EST [facility] ([facility]) Extended Individual Psychotherapy - 45 min 12:00:00 AM EST [facility] ([facility]) TEMPMHCTelemed 30" Psychotherapy 021 12:00:00 AM EST - 11/07/2020 12:00:00 AM EST [facility] ([facility]) TEMPMHCTelemed 30" Psychotherapy 11/07/2020 12:00:00 A M EST [facility] ([facility]) OFFICE OUTPATIENT VISIT 15 MINUTES 10/25 12:00:00 AM EST - 10/25/2020 12:00:00 AM EST [facility] ([facility]) Psychotherapy ADD ON - 30 Minutes 10/25/2020 12:00:00 AM EST [facility] ([facility]) OFFICE OUTPATIENT VISIT 15 MINUTES 10/25/2020 12:00:00 AM EST [facility] ([facility]) Extended Individual Psychotherapy - 45 min 10/20/2020 12:00:00 AM EST - 10/20/2020 12:00:00 AM EST [facility] ([facility]) Extended Individual Psychotherapy - 45 min 12:00:00 AM EST [facility] ([facility]) Extended Individual Psychotherapy - 45 min 09/28/2020 12:00:00 AM EST - 09/28/2020 12:00:00 AM EST [facility] ([facility]) Extended Individual Psychotherapy - 45 min 0 12:00:00 AM EST [facility] ([facility]) INCISION & DRAINAGE ABSCESS SIMPLE/SINGLE 09/25/2020 1 2:00:00 AM EST MEDENT ([facility] INCISION & DRAINAGE ABSCESS SIMPLE/SINGLE 09/25/2020 1 2:00:00 AM EST MEDENT ([facility] OFFICE OUTPATIENT VISIT 15 MINUTES 09/21 12:00:00 AM EST - 09/21/2020 12:00:00 AM EST [facility] ([facility]) Psychotherapy ADD ON - 30 Minutes 09/21/2020 12:00:00 AM EST [facility] ([facility]) OFFICE OUTPATIENT VISIT 15 MINUTES 09/21/2020 12:00:00 AM EST [facility] ([facility]) Extended Individual Psychotherapy - 45 min 09/11/2020 12:00:00 AM EST - 09/11/2020 12:00:00 AM EST [facility] ([facility]) Extended Individual Psychotherapy - 45 min 0 12:00:00 AM EST [facility] ([facility]) OFFICE OUTPATIENT VISIT 15 MINUTES 08/24 12:00:00 AM EST - 08/24/2020 12:00:00 AM EST [facility] ([facility]) Psychotherapy ADD ON - 30 Minutes 08/24/2020 12:00:00 AM EST [facility] ([facility]) OFFICE OUTPATIENT VISIT 15 MINUTES 08/24/2020 12:00:00 AM EST [facility] ([facility]) Brief Individual Psychotherapy - 30 min 08/17/2020 12:00:00 AM EST - 08/17/2020 12:00:00 AM EST [facility] ([facility]) Brief Individual Psychotherapy - 30 min 08/17/2020 12: 00:00 AM EST [facility] ([facility]) MHC Telemed E/M Lvl 3--Est pt 07/25/2020 12:00:00 AM EDT - 07/25/2020 12:00:00 AM EDT [facility] ([facility]) Telemed A/O 30" 07/25/2020 12:00:00 AM EDT [facility] ([facility]) MHC Telemed E/M Lvl 3--Est pt 07/25/2020 12:00:00 AM E DT [facility] ([facility]) Brief Individual Psychotherapy - 30 min 07/20/2020 12:00:00 AM EDT - 07/20/2020 12:00:00 AM EDT [facility] ([facility]) Brief Individual Psychotherapy - 30 min 07/20/2020 12: 00:00 AM EDT [facility] ([facility]) TEMPMHCTelemed 30" Psychotherapy 12:00:00 AM EDT - 07/06/2020 12:00:00 AM EDT [facility] ([facility]) TEMPMHCTelemed 30" Psychotherapy 07/06/2020 12:00:00 A M EDT [facility] ([facility]) TEMPMHCTelemed 30" Psychotherapy 09/04/2 020 12:00:00 AM EDT - 06/16/2020 12:00:00 AM EDT [facility] ([facility]) TEMPMHCTelemed 30" Psychotherapy 06/16/2020 12:00:00 A M EDT [facility] ([facility]) Results ID Date Data Source [id number] 05/18/2021 08:31:00 PM EDT [facility]) Name Value Range Interpretation Code Description Data Becky rce(s) Supporting Document(s) lipase 195 U/L 73-393 Lipase [facility]) ID Date Data Source [id number] 05/18/2021 08:31:00 PM EDT [facility]) Name Value Range Interpretation Code Description Data Becky rce(s) Supporting Document(s) glucose, fasting 159 mg/dL 70-100 Above high normal Glucose, Fas ting [place] ([facility]) glomerular filtration rate > 60.0 >60 Glomerula r Filtration Rate [place] ([facility]) creatinine for GFR 0.93 mg/dL 0.70-1.30 Creatinine for GF R [place] ([facility]) blood urea nitrogen 9 mg/dL 7-18 Blood Urea Nitro gen [place] ([facility]) potassium serum 3.9 mEq/L 3.5-5.1 Potassium Serum ATH NA ([facility]) sodium level 137 mEq/L 136-145 Sodium Level JEFF ([facility]) chloride level 104 mEq/L 98-107 Chloride Level [place] ([facility]) carbon dioxide level 28 mEq/L 21-32 Carbon Dioxide Level [place] ([facility]) calcium level 8.2 mg/dL 8.5-10.1 Below low normal Calcium Level AT [facility]) anion gap 5 mEq/L 8-16 Below low normal Anion Gap [facility]) ID Date Data Source [id number] 05/18/2021 08:31:00 PM EDT JEFF ([facility]) Name Value Range Interpretation Code Description Data Becky rce(s) Supporting Document(s) ALT/SGPT 36 U/L 12-78 ALT/SGPT JEFF ([facility]) AST/SGOT 19 U/L 7-37 AST/SGOT JEFF ([facility]) bilirubin,total 0.4 mg/dL 0.2-1.0 Bilirubin,total ATHE NA ([facility]) alkaline phosphatase 75 U/L 45-117 Alkaline Phosph atase JEFF ([facility]) bilirubin,direct 0.1 mg/dL 0.0-0.2 Bilirubin,direct [facility] ([facility]) albumin 3.6 gm/dL 3.2-5.2 Albumin JEFF ([facility]) total protein 7.0 gm/dL 6.4-8.2 Total Protein JEFF ( [facility]) albumin/globulin ratio Albumin/globu bianca Ratio JEFF ([facility]) ID Date Data Source [id number] 05/18/2021 08:31:00 PM EDT JEFF ([facility]) Name Value Range Interpretation Code Description Data Becky rce(s) Supporting Document(s) red blood count 5.35 10 4.30-6.10 Red Blood Count ATHE ([facility]) white blood count 6.3 10 4.0-10.0 White Blood Count JEFF ([facility]) hemoglobin 15.7 g/dL 13.5-17.5 Hemoglobin JEFF ([facility]) hematocrit 46.9 % 42.0-52.0 Hematocrit JEFF ([facility]) mean corpuscular volume 87.7 fL 80.0-96.0 Mean Corpusc ular Volume JEFF ([facility]) mean corpuscular hemoglobin 29.3 pg 27.0-33.0 Mean Cor puscular Hemoglobin JEFF ([facility]) mean corpuscular HGB conc 33.5 g/dL 32.0-36.5 Mean Corpu scular HGB Conc JEFF ([facility]) red cell distribution width 13.3 % 11.5-14.5 Red Cell Distribution Width JEFF ([facility]) platelet count, automated 190 10 150-450 Platelet C ount, Automated JEFF ([facility]) neutrophils % 57.8 % 36.0-66.0 Neutrophils % JEFF ( [facility]) mono % 8.4 % 2.0-8.0 Above high normal [place] % JEFF ([facility]) lymph % 23.9 % 24.0-44.0 Below low normal Lymph % JEFF ( [facility]) eos % 6.5 % 0.0-3.0 Above high normal Eos % [place] ([facility]) baso % 1.3 % 0.0-1.0 Above high normal Baso % [place] ([facility]) immature granulocyte % 2.1 % 0-3.0 Immature Gran ulocyte % [place] ([facility]) nucleated red blood cell % 0.0 % 0-0 Nucleated Red Blood Cell % [place] ([facility]) neutrophils # 3.7 10 1.5-8.5 Neutrophils # JEFF ( [facility]) lymph # 1.5 10 1.5-5.0 Lymph # JEFF ([facility]) mono # 0.5 10 0.0-0.8 Parke # JEFF ([facility]) eos # 0.4 10 0.0-0.5 Eos # JEFF ([facility]) baso # 0.1 10 0.0-0.2 Baso # JEFF ([facility]) ID Date Data Source [id number] 05/18/2021 08:31:00 PM EDT [place] ([facility]) Name Value Range Interpretation Code Description Data Becky rce(s) Supporting Document(s) lipase 195 U/L 73-393 Lipase [place] ([facility]) ID Date Data Source [id number] 05/18/2021 08:31:00 PM EDT [facility]) Name Value Range Interpretation Code Description Data Becky rce(s) Supporting Document(s) glucose, fasting 159 mg/dL 70-100 Above high normal Glucose, Fas ting JEFF ([facility]) blood urea nitrogen 9 mg/dL 7-18 Blood Urea Nitro gen JEFF ([facility]) creatinine for GFR 0.93 mg/dL 0.70-1.30 Creatinine for GF R JEFF ([facility]) glomerular filtration rate > 60.0 >60 Glomerula r Filtration Rate JEFF ([facility]) potassium serum 3.9 mEq/L 3.5-5.1 Potassium [facility] sodium level 137 mEq/L 136-145 Sodium Level [place] ([facility]) chloride level 104 mEq/L 98-107 Chloride Level [place] ([facility]) carbon dioxide level 28 mEq/L 21-32 Carbon Dioxide Level [place] ([facility]) calcium level 8.2 mg/dL 8.5-10.1 Below low normal Calcium Level AT [facility]) anion gap 5 mEq/L 8-16 Below low normal Anion Gap [place] ( [facility]) ID Date Data Source [id number] 05/18/2021 08:31:00 PM EDT [facility]) Name Value Range Interpretation Code Description Data Becky rce(s) Supporting Document(s) AST/SGOT 19 U/L 7-37 AST/SGOT [place] ([facility]) ALT/SGPT 36 U/L 12-78 ALT/SGPT [place] ([facility]) bilirubin,total 0.4 mg/dL 0.2-1.0 Bilirubin,total [facility] alkaline phosphatase 75 U/L 45-117 Alkaline Phosph atase [facility]) bilirubin,direct 0.1 mg/dL 0.0-0.2 Bilirubin,direct AT [facility]) total protein 7.0 gm/dL 6.4-8.2 Total Protein [place] ( [facility]) albumin/globulin ratio Albumin/globu bianca Ratio JEFF ([facility]) albumin 3.6 gm/dL 3.2-5.2 Albumin JEFF ([facility]) ID Date Data Source [id number] 05/18/2021 08:31:00 PM EDT JEFF ([facility]) Name Value Range Interpretation Code Description Data Becky rce(s) Supporting Document(s) white blood count 6.3 10 4.0-10.0 White Blood Count JEFF ([facility]) red blood count 5.35 10 4.30-6.10 Red Blood Count [facility] ([facility]) hemoglobin 15.7 g/dL 13.5-17.5 Hemoglobin JEFF ([facility]) mean corpuscular volume 87.7 fL 80.0-96.0 Mean Corpusc ular Volume JEFF ([facility]) hematocrit 46.9 % 42.0-52.0 Hematocrit JEFF ([facility]) mean corpuscular hemoglobin 29.3 pg 27.0-33.0 Mean Cor puscular Hemoglobin JEFF ([facility]) mean corpuscular HGB conc 33.5 g/dL 32.0-36.5 Mean Corpu scular HGB Conc JEFF ([facility]) red cell distribution width 13.3 % 11.5-14.5 Red Cell Distribution Width JEFF ([facility]) neutrophils % 57.8 % 36.0-66.0 Neutrophils % JEFF ( [facility]) platelet count, automated 190 10 150-450 Platelet C ount, Automated JEFF ([facility]) lymph % 23.9 % 24.0-44.0 Below low normal Lymph % JEFF ( [facility]) mono % 8.4 % 2.0-8.0 Above high normal [place] % JEFF ([facility]) eos % 6.5 % 0.0-3.0 Above high normal Eos % JEFF ([facility]) immature granulocyte % 2.1 % 0-3.0 Immature Gran ulocyte % JEFF ([facility]) baso % 1.3 % 0.0-1.0 Above high normal Baso % JEFF ([facility]) nucleated red blood cell % 0.0 % 0-0 Nucleated Red Blood Cell % JEFF ([facility]) neutrophils # 3.7 10 1.5-8.5 Neutrophils # JEFF ( [facility]) lymph # 1.5 10 1.5-5.0 Lymph # JEFF ([facility]) mono # 0.5 10 0.0-0.8 [place] # [facility] [facility]o # 0.1 10 0.0-0.2 Baso # [place]FF ([facility]) eos # 0.4 10 0.0-0.5 Eos # JEFF ([facility]) ID Date Data Source [id number] 03/27/2021 10:41:00 AM EDT [place] ([facility]) Name Value Range Interpretation Code Description Data Becky rce(s) Supporting Document(s) Hemoglobin A1c/Hemoglobin.total in Blood 7.5 % Abnormal (applies to non- numeric results) Hba1C [place] ([facility]) ID Date Data Source [id number] 03/27/2021 10:41:00 AM EDT [place] ([facility]) Name Value Range Interpretation Code Description Data Becky rce(s) Supporting Document(s) Hemoglobin A1c/Hemoglobin.total in Blood 7.5 % Abnormal (applies to non- numeric results) Hba1C [place] ([facility]) ID Date Data Source [id number] 03/27/2021 10:41:00 AM EDT [facility]) Name Value Range Interpretation Code Description Data Becky rce(s) Supporting Document(s) Hemoglobin A1c/Hemoglobin.total in Blood 7.5 % Abnormal (applies to non- numeric results) Hba1C [place] ([facility]) ID Date Data Source [id number] 03/22/2021 12:00:00 AM EDT [place] ([facility]) Name Value Range Interpretation Code Description Data Becky rce(s) Supporting Document(s) Right Eye Incomplete - Unable to Capture Image Right Eye [place] ([facility]) Left Eye Incomplete - Unable to Capture Image Left Eye [place] ([facility]) Ophthalmology Consult Not Ordered - Unable to Complete Exam Ophthalmology Consult [place] ([facility]) ID Date Data Source [id number] 03/22/2021 12:00:00 AM EDT [place] ([facility]) Name Value Range Interpretation Code Description Data Becky rce(s) Supporting Document(s) Right Eye Incomplete - Unable to Capture Image Right Eye [place] ([facility]) Ophthalmology Consult Not Ordered - Unable to Complete Exam Ophthalmology Consult [place] ([facility]) Left Eye Incomplete - Unable to Capture Image Left Eye [place] ([facility]) ID Date Data Source [id number] 03/22/2021 12:00:00 AM EDT [place] ([facility]) Name Value Range Interpretation Code Description Data Becky rce(s) Supporting Document(s) Right Eye Incomplete - Unable to Capture Image Right Eye [place] ([facility]) Ophthalmology Consult Not Ordered - Unable to Complete Exam Ophthalmology Consult [place] ([facility]) Left Eye Incomplete - Unable to Capture Image Left Eye [place] ([facility]) ID Date Data Source [id number] 03/22/2021 12:00:00 AM EDT [place] ([facility]) Name Value Range Interpretation Code Description Data Becky rce(s) Supporting Document(s) Left Eye Incomplete - Unable to Capture Image Left Eye [place] ([facility]) Right Eye Incomplete - Unable to Capture Image Right Eye [place] ([facility]) Ophthalmology Consult Not Ordered - Unable to Complete Exam Ophthalmology Consult [place] ([facility]) ID Date Data Source [id number] 03/22/2021 12:00:00 AM EDT [place] ([facility]) Name Value Range Interpretation Code Description Data Becky rce(s) Supporting Document(s) Right Eye Incomplete - Unable to Capture Image Right Eye [place] ([facility]) Left Eye Incomplete - Unable to Capture Image Left Eye [place] ([facility]) Ophthalmology Consult Not Ordered - Unable to Complete Exam Ophthalmology Consult [place] ([facility]) ID Date Data Source [id number] 01/26/2021 03:20:00 AM EDT [facility] Name Value Range Interpretation Code Description Data Becky rce(s) Supporting Document(s) SARS-CoV-2 (COVID 19) NEGATIVE - SARS-CoV-2 (COVID19) [facility] This lab was ordered by [facility] a nd reported by [facility]. ID Date Data Source [id number] 11/15/2020 03:50:00 PM EST [place] ([facility]) Name Value Range Interpretation Code Description Data Becky rce(s) Supporting Document(s) Hemoglobin A1c/Hemoglobin.total in Blood 7.6 [facility] ([facility]) Glucose [Mass/volume] in Serum or Plasma 128 [facility] ([facility]) ID Date Data Source [id number] 09/18/2020 09:39:00 AM EST [facility]) Name Value Range Interpretation Code Description Data Becky rce(s) Supporting Document(s) cholesterol level 211 mg/dL <200 Above high normal Cholesterol Level [place] ([facility]) triglycerides level 677 mg/dL <150 Above high normal Triglycer ides Level [place] ([facility]) non-HDL-C 179 mg/dL Non-hdl-c [place] ([facility]) HDL cholesterol 32 mg/dL >40 Below low normal HDL Cholestero l [place] ([facility]) cholesterol risk ratio <5 Above high normal Choles terol Risk Ratio [place] ([facility]) ID Date Data Source [id number] 09/18/2020 09:39:00 AM EST [facility]) Name Value Range Interpretation Code Description Data Becky rce(s) Supporting Document(s) glucose, fasting 145 mg/dL 70-100 Above high normal Glucose, Fas ting [place] ([facility]) creatinine for GFR 1.20 mg/dL 0.70-1.30 Creatinine for GF R [place] ([facility]) blood urea nitrogen 19 mg/dL 7-18 Above high normal Blood Ure a Nitrogen [place] ([facility]) glomerular filtration rate > 60.0 >60 Glomerula r Filtration Rate [place] ([facility]) potassium serum 4.1 mEq/L 3.5-5.1 Potassium Serum ATHE NA ([facility]) chloride level 103 mEq/L 98-107 Chloride Level [place] ([facility]) sodium level 137 mEq/L 136-145 Sodium Level [place] ([facility]) anion gap 5 mEq/L 8-16 Below low normal Anion Gap [place] ( [facility]) carbon dioxide level 29 mEq/L 21-32 Carbon Dioxide Level [place] ([facility]) calcium level 9.0 mg/dL 8.5-10.1 Calcium Level [place] ( [facility]) ALT/SGPT 38 U/L 12-78 ALT/SGPT [place] ([facility]) AST/SGOT 16 U/L 7-37 AST/SGOT [place] ([facility]) total protein 7.6 gm/dL 6.4-8.2 Total Protein [place] ( [facility]) alkaline phosphatase 82 U/L 45-117 Alkaline Phosph atase [place] ([facility]) bilirubin,total 0.4 mg/dL 0.2-1.0 Bilirubin,total ATHE NA ([facility]) albumin/globulin ratio Albumin/globu bianca Ratio [place] ([facility]) albumin 4.0 gm/dL 3.2-5.2 Albumin [place] ([facility]) ID Date Data Source [id number] 09/18/2020 09:39:00 AM EST [place] ([facility]) Name Value Range Interpretation Code Description Data Becky rce(s) Supporting Document(s) cholesterol level 211 mg/dL <200 Above high normal Cholesterol Level [place] ([facility]) HDL cholesterol 32 mg/dL >40 Below low normal HDL Cholestero l [place] ([facility]) triglycerides level 677 mg/dL <150 Above high normal Triglycer ides Level [place] ([facility]) non-HDL-C 179 mg/dL Non-hdl-c [place] ([facility]) cholesterol risk ratio <5 Above high normal Choles terol Risk Ratio [place] ([facility]) ID Date Data Source [id number] 09/18/2020 09:39:00 AM EST [place] ([facility]) Name Value Range Interpretation Code Description Data Becky rce(s) Supporting Document(s) glucose, fasting 145 mg/dL 70-100 Above high normal Glucose, Fas ting [place] ([facility]) blood urea nitrogen 19 mg/dL 7-18 Above high normal Blood Ure a Nitrogen [place] ([facility]) creatinine for GFR 1.20 mg/dL 0.70-1.30 Creatinine for GF R [place] ([facility]) glomerular filtration rate > 60.0 >60 Glomerula r Filtration Rate [place] ([facility]) sodium level 137 mEq/L 136-145 Sodium Level [place] ([facility]) potassium serum 4.1 mEq/L 3.5-5.1 Potassium Serum ATHE NA ([facility]) chloride level 103 mEq/L 98-107 Chloride Level [place] ([facility]) anion gap 5 mEq/L 8-16 Below low normal Anion Gap [place] ( [facility]) carbon dioxide level 29 mEq/L 21-32 Carbon Dioxide Level [place] ([facility]) calcium level 9.0 mg/dL 8.5-10.1 Calcium Level [place] ( [facility]) AST/SGOT 16 U/L 7-37 AST/SGOT [place] ([facility]) ALT/SGPT 38 U/L 12-78 ALT/SGPT [place] ([facility]) alkaline phosphatase 82 U/L 45-117 Alkaline Phosph atase [place] ([facility]) total protein 7.6 gm/dL 6.4-8.2 Total Protein [place] ( [facility]) bilirubin,total 0.4 mg/dL 0.2-1.0 Bilirubin,total ATHE [place] ([facility]) albumin 4.0 gm/dL 3.2-5.2 Albumin [place] ([facility]) albumin/globulin ratio Albumin/globu bianca Ratio [place] ([facility]) ID Date Data Source [id number] 09/18/2020 09:39:00 AM EST [place] ([facility]) Name Value Range Interpretation Code Description Data Becky rce(s) Supporting Document(s) triglycerides level 677 mg/dL <150 Above high normal Triglycer ides Level [place] ([facility]) cholesterol level 211 mg/dL <200 Above high normal Cholesterol Level [place] ([facility]) non-HDL-C 179 mg/dL Non-hdl-c [place] ([facility]) HDL cholesterol 32 mg/dL >40 Below low normal HDL Cholestero l [place] ([facility]) cholesterol risk ratio <5 Above high normal Choles terol Risk Ratio [place] ([facility]) ID Date Data Source [id number] 09/18/2020 09:39:00 AM EST [place] ([facility]) Name Value Range Interpretation Code Description Data Becky rce(s) Supporting Document(s) glucose, fasting 145 mg/dL 70-100 Above high normal Glucose, Fas ting [place] ([facility]) creatinine for GFR 1.20 mg/dL 0.70-1.30 Creatinine for GF R [place] ([facility]) blood urea nitrogen 19 mg/dL 7-18 Above high normal Blood Ure a Nitrogen [place] ([facility]) glomerular filtration rate > 60.0 >60 Glomerula r Filtration Rate [place] ([facility]) potassium serum 4.1 mEq/L 3.5-5.1 Potassium Serum AT[facility] NA ([facility]) sodium level 137 mEq/L 136-145 Sodium Level [place] ([facility]) carbon dioxide level 29 mEq/L 21-32 Carbon Dioxide Level [place] ([facility]) chloride level 103 mEq/L 98-107 Chloride Level [place] ([facility]) AST/SGOT 16 U/L 7-37 AST/SGOT [place] ([facility]) calcium level 9.0 mg/dL 8.5-10.1 Calcium Level [place] ( [facility]) anion gap 5 mEq/L 8-16 Below low normal Anion Gap [facility] ( [facility]) bilirubin,total 0.4 mg/dL 0.2-1.0 Bilirubin,total ATHE NA ([facility]) ALT/SGPT 38 U/L 12-78 ALT/SGPT [place] ([facility]) alkaline phosphatase 82 U/L 45-117 Alkaline Phosph atase [place] ([facility]) albumin/globulin ratio Albumin/globu bianca Ratio [facility] ([facility]) total protein 7.6 gm/dL 6.4-8.2 Total Protein [place] ( [facility]) albumin 4.0 gm/dL 3.2-5.2 Albumin [place] ([facility]) ID Date Data Source [id number] 09/18/2020 09:39:00 AM EST [place] ([facility]) Name Value Range Interpretation Code Description Data Becky rce(s) Supporting Document(s) triglycerides level 677 mg/dL <150 Above high normal Triglycer ides Level [place] ([facility]) cholesterol level 211 mg/dL <200 Above high normal Cholesterol Level [place] ([facility]) cholesterol risk ratio <5 Above high normal Choles terol Risk Ratio [place] ([facility]) HDL cholesterol 32 mg/dL >40 Below low normal HDL Cholestero l [place] ([facility]) non-HDL-C 179 mg/dL Non-hdl-c [place] ([facility]) ID Date Data Source [id number] 09/18/2020 09:39:00 AM EST [place] ([facility]) Name Value Range Interpretation Code Description Data Becky rce(s) Supporting Document(s) glucose, fasting 145 mg/dL 70-100 Above high normal Glucose, Fas ting [place] ([facility]) blood urea nitrogen 19 mg/dL 7-18 Above high normal Blood Ure a Nitrogen [place] ([facility]) creatinine for GFR 1.20 mg/dL 0.70-1.30 Creatinine for GF R [place] ([facility]) sodium level 137 mEq/L 136-145 Sodium Level JE[place] (No [facility]) glomerular filtration rate > 60.0 >60 Glomerula r Filtration Rate [place] ([facility]) carbon dioxide level 29 mEq/L 21-32 Carbon Dioxide Level [place] ([facility]) potassium serum 4.1 mEq/L 3.5-5.1 Potassium Serum [place] ([facility]) chloride level 103 mEq/L 98-107 Chloride Level [place] ([facility]) anion gap 5 mEq/L 8-16 Below low normal Anion Gap [place] ( [facility]) calcium level 9.0 mg/dL 8.5-10.1 Calcium Level [place] ( [facility]) ALT/SGPT 38 U/L 12-78 ALT/SGPT [place] ([facility]) AST/SGOT 16 U/L 7-37 AST/SGOT [place] ([facility]) alkaline phosphatase 82 U/L 45-117 Alkaline Phosph atase [place] ([facility]) bilirubin,total 0.4 mg/dL 0.2-1.0 Bilirubin,total [place] ([facility]) albumin/globulin ratio Albumin/globu bianca Ratio [place] ([facility]) total protein 7.6 gm/dL 6.4-8.2 Total Protein [place] ( [facility]) albumin 4.0 gm/dL 3.2-5.2 Albumin [place] ([facility]) ID Date Data Source [id number] 09/18/2020 09:39:00 AM EST [place] ([facility]) Name Value Range Interpretation Code Description Data Becky rce(s) Supporting Document(s) triglycerides level 677 mg/dL <150 Above high normal Triglycer ides Level [place] ([facility]) HDL cholesterol 32 mg/dL >40 Below low normal HDL Cholestero l [place] ([facility]) cholesterol level 211 mg/dL <200 Above high normal Cholesterol Level [place] ([facility]) non-HDL-C 179 mg/dL Non-hdl-c [place] ([facility]) cholesterol risk ratio <5 Above high normal Choles terol Risk Ratio [place] ([facility]) ID Date Data Source [id number] 09/18/2020 09:39:00 AM EST [place] ([facility]) Name Value Range Interpretation Code Description Data Bceky rce(s) Supporting Document(s) glucose, fasting 145 mg/dL 70-100 Above high normal Glucose, Fas ting [place] ([facility]) creatinine for GFR 1.20 mg/dL 0.70-1.30 Creatinine for GF R [place] ([facility]) blood urea nitrogen 19 mg/dL 7-18 Above high normal Blood Ure a Nitrogen [place] ([facility]) glomerular filtration rate > 60.0 >60 Glomerula r Filtration Rate [place] ([facility]) sodium level 137 mEq/L 136-145 Sodium Level [place] ([facility]) potassium serum 4.1 mEq/L 3.5-5.1 Potassium Serum ATHE NA ([facility]) carbon dioxide level 29 mEq/L 21-32 Carbon Dioxide Level [place] ([facility]) anion gap 5 mEq/L 8-16 Below low normal Anion Gap [place] ( [facility]) chloride level 103 mEq/L 98-107 Chloride Level [place] ([facility]) ALT/SGPT 38 U/L 12-78 ALT/SGPT [place] ([facility]) calcium level 9.0 mg/dL 8.5-10.1 Calcium Level [place] ( [facility]) AST/SGOT 16 U/L 7-37 AST/SGOT [place] ([facility]) total protein 7.6 gm/dL 6.4-8.2 Total Protein [place] ( [facility]) alkaline phosphatase 82 U/L 45-117 Alkaline Phosph atase [place] ([facility]) bilirubin,total 0.4 mg/dL 0.2-1.0 Bilirubin,total ATHE NA ([facility]) albumin 4.0 gm/dL 3.2-5.2 Albumin [place] ([facility]) albumin/globulin ratio Albumin/globu bianca Ratio [facility] ([facility]) ID Date Data Source [id number] 09/18/2020 09:39:00 AM EST [place] ([facility]) Name Value Range Interpretation Code Description Data Becky rce(s) Supporting Document(s) triglycerides level 677 mg/dL <150 Above high normal Triglycer ides Level [place] ([facility]) cholesterol level 211 mg/dL <200 Above high normal Cholesterol Level [place] ([facility]) HDL cholesterol 32 mg/dL >40 Below low normal HDL Cholestero l [place] ([facility]) cholesterol risk ratio <5 Above high normal Choles terol Risk Ratio [place] ([facility]) non-HDL-C 179 mg/dL Non-hdl-c [place] ([facility]) ID Date Data Source [id number] 09/18/2020 09:39:00 AM EST [place] ([facility]) Name Value Range Interpretation Code Description Data Becky rce(s) Supporting Document(s) glucose, fasting 145 mg/dL 70-100 Above high normal Glucose, Fas ting [place] ([facility]) blood urea nitrogen 19 mg/dL 7-18 Above high normal Blood Ure a Nitrogen [place] ([facility]) creatinine for GFR 1.20 mg/dL 0.70-1.30 Creatinine for GF R [place] ([facility]) glomerular filtration rate > 60.0 >60 Glomerula r Filtration Rate [place] ([facility]) sodium level 137 mEq/L 136-145 Sodium Level [place] ([facility]) potassium serum 4.1 mEq/L 3.5-5.1 Potassium Serum ATHE NA ([facility]) anion gap 5 mEq/L 8-16 Below low normal Anion Gap [place] ( [facility]) chloride level 103 mEq/L 98-107 Chloride Level [place] ([facility]) carbon dioxide level 29 mEq/L 21-32 Carbon Dioxide Level [place] ([facility]) AST/SGOT 16 U/L 7-37 AST/SGOT [place] ([facility]) calcium level 9.0 mg/dL 8.5-10.1 Calcium Level [place] ( [facility]) ALT/SGPT 38 U/L 12-78 ALT/SGPT [place] ([facility]) alkaline phosphatase 82 U/L 45-117 Alkaline Phosph atase [place] ([facility]) bilirubin,total 0.4 mg/dL 0.2-1.0 Bilirubin,total AT[facility] ([facility]) albumin 4.0 gm/dL 3.2-5.2 Albumin [place] ([facility]) total protein 7.6 gm/dL 6.4-8.2 Total Protein [place] ( [facility]) albumin/globulin ratio Albumin/globu bianca Ratio [facility] ([facility]) ID Date Data Source [id number] 09/18/2020 09:39:00 AM EST [place] ([facility]) Name Value Range Interpretation Code Description Data Becky rce(s) Supporting Document(s) HDL cholesterol 32 mg/dL >40 Below low normal HDL Cholestero l [facility] ([facility]) triglycerides level 677 mg/dL <150 Above high normal Triglycer ides Level [place] ([facility]) cholesterol level 211 mg/dL <200 Above high normal Cholesterol Level [place] ([facility]) non-HDL-C 179 mg/dL Non-hdl-c [place] ([facility]) cholesterol risk ratio <5 Above high normal Choles terol Risk Ratio [facility] ([facility]) ID Date Data Source [id number] 09/18/2020 09:39:00 AM EST [place] ([facility]) Name Value Range Interpretation Code Description Data Becky rce(s) Supporting Document(s) glucose, fasting 145 mg/dL 70-100 Above high normal Glucose, Fas ting [place] ([facility]) glomerular filtration rate > 60.0 >60 Glomerula r Filtration Rate [place] ([facility]) blood urea nitrogen 19 mg/dL 7-18 Above high normal Blood Ure a Nitrogen [place] ([facility]) creatinine for GFR 1.20 mg/dL 0.70-1.30 Creatinine for GF R [place] ([facility]) chloride level 103 mEq/L 98-107 Chloride Level [place] ([facility]) sodium level 137 mEq/L 136-145 Sodium Level [facility] ([facility]) potassium serum 4.1 mEq/L 3.5-5.1 Potassium Serum ATHE NA ([facility]) carbon dioxide level 29 mEq/L 21-32 Carbon Dioxide Level [facility] ([facility]) anion gap 5 mEq/L 8-16 Below low normal Anion Gap [facility] ( [facility]) calcium level 9.0 mg/dL 8.5-10.1 Calcium Level [place] ( [facility]) alkaline phosphatase 82 U/L 45-117 Alkaline Phosph atase [facility] ([facility]) ALT/SGPT 38 U/L 12-78 ALT/SGPT [place] ([facility]) AST/SGOT 16 U/L 7-37 AST/SGOT [place] ([facility]) albumin 4.0 gm/dL 3.2-5.2 Albumin [place] ([facility]) total protein 7.6 gm/dL 6.4-8.2 Total Protein [place] ( [facility]) bilirubin,total 0.4 mg/dL 0.2-1.0 Bilirubin,total ATHE NA ([facility]) albumin/globulin ratio Albumin/globu bianca Ratio [facility] ([facility]) ID Date Data Source [id number] 09/18/2020 09:39:00 AM EST [facility] ([facility]) Name Value Range Interpretation Code Description Data Becky rce(s) Supporting Document(s) Glucose, Fasting 145 mg/dL 70-100 [facility] ([facility]) Blood Urea Nitrogen 19 mg/dL 7-18 [facility] ([facility]) Creatinine For GFR 1.20 mg/dL 0.70-1.30 [facility] ([facility]) Glomerular Filtration Rate Laboratory test result [facility] ([facility]) <content>Units are mL/min/1.73 m2</content>
<content></content>
<content>Chronic Kidney Disease Staging per NK[facility]:</content>
<content></content>
<content>Stage I & II GFR >=60 Normal to Mildly Decreased</content>
<content>Stage III GFR 30- 59 Moderately Decreased</content>
<content>Stage IV GFR 15-29 Severely Decreased</content>
<content>Stage V GFR <15 Very Little GFR Left</content>
<content>ESRD GFR <15 on KILN PLACER</content>
<content></content> Potassium Serum 4.1 meq/L 3.5-5.1 [facility] ([facility]) Sodium Level 137 meq/L 136-145 [facility] ([facility]) Carbon Dioxide Level 29 meq/L 21-32 [facility] Chloride Level 103 meq/L 98-107 [facility] ([facility]) Anion Gap 5 meq/L 8-16 [facility]) Alt/SGPT 38 U/L 12-78 [facility] ([facility]) Ast/Sgot 16 U/L 7-37 [facility] ([facility]) Calcium Level 9.0 mg/dL 8.5-10.1 [facility] ([facility]) Bilirubin,Total 0.4 mg/dL 0.2-1.0 [facility] ([facility]) Alkaline Phosphatase 82 U/L 45-117 [facility] ( [facility] Total Protein 7.6 GM/DL 6.4-8.2 [facility] Albumin 4.0 GM/DL 3.2-5.2 [facility] ([facility]) Albumin/Globulin Ratio 1.1 [facility] ([facility]) ID Date Data Source [id number] 09/18/2020 09:39:00 AM EST [facility] ([facility]) Name Value Range Interpretation Code Description Data Becky rce(s) Supporting Document(s) Triglycerides Level 677 mg/dL [facility] Cholesterol Level 211 mg/dL [facility] ([facility]) HDL Cholesterol 32 mg/dL [facility] ([facility]) Cholesterol Risk Ratio 6.593 [facility] ([facility]) Non-HDL-C 179 mg/dL [facility] ([facility]) ID Date Data Source [id number] 09/18/2020 09:39:00 AM EST [place] ([facility]) Name Value Range Interpretation Code Description Data Becky rce(s) Supporting Document(s) cholesterol level 211 mg/dL <200 Above high normal Cholesterol Level JEFF ([facility]) triglycerides level 677 mg/dL <150 Above high normal Triglycer ides Level JEFF ([facility]) HDL cholesterol 32 mg/dL >40 Below low normal HDL Cholestero l [place] ([facility]) cholesterol risk ratio <5 Above high normal Choles terol Risk Ratio JEFF ([facility]) non-HDL-C 179 mg/dL Non-hdl-c [facility] ([facility]) ID Date Data Source [id number] 09/18/2020 09:39:00 AM EST JEFF ([facility]) Name Value Range Interpretation Code Description Data Becky rce(s) Supporting Document(s) glucose, fasting 145 mg/dL 70-100 Above high normal Glucose, Fas ting JEFF ([facility]) blood urea nitrogen 19 mg/dL 7-18 Above high normal Blood Ure a Nitrogen JEFF ([facility]) creatinine for GFR 1.20 mg/dL 0.70-1.30 Creatinine for GF R JEFF ([facility]) glomerular filtration rate > 60.0 >60 Glomerula r Filtration Rate JEFF ([facility]) sodium level 137 mEq/L 136-145 Sodium Level JEFF ([facility]) chloride level 103 mEq/L 98-107 Chloride Level JEFF ([facility]) potassium serum 4.1 mEq/L 3.5-5.1 Potassium Serum ATHE NA ([facility]) anion gap 5 mEq/L 8-16 Below low normal Anion Gap JEFF ( [facility]) carbon dioxide level 29 mEq/L 21-32 Carbon Dioxide Level JEFF ([facility]) calcium level 9.0 mg/dL 8.5-10.1 Calcium Level JEFF ( [facility]) AST/SGOT 16 U/L 7-37 AST/SGOT [facility] ([facility]) ALT/SGPT 38 U/L 12-78 ALT/SGPT [facility] ([facility]) bilirubin,total 0.4 mg/dL 0.2-1.0 Bilirubin,total ATHE NA ([facility]) alkaline phosphatase 82 U/L 45-117 Alkaline Phosph atase JEFF ([facility]) total protein 7.6 gm/dL 6.4-8.2 Total Protein JEFF ( [facility]) albumin/globulin ratio Albumin/globu bianca Ratio JEFF ([facility]) albumin 4.0 gm/dL 3.2-5.2 Albumin [facility] ([facility]) ID Date Data Source [id number] 09/18/2020 09:39:00 AM EST JEFF ([facility]) Name Value Range Interpretation Code Description Data Becky rce(s) Supporting Document(s) triglycerides level 677 mg/dL <150 Above high normal Triglycer ides Level JEFF ([facility]) cholesterol level 211 mg/dL <200 Above high normal Cholesterol Level JEFF ([facility]) HDL cholesterol 32 mg/dL >40 Below low normal HDL Cholestero l JEFF ([facility]) cholesterol risk ratio <5 Above high normal Choles terol Risk Ratio JEFF ([facility]) non-HDL-C 179 mg/dL Non-hdl-c [facility] ([facility]) ID Date Data Source [id number] 09/18/2020 09:39:00 AM EST JE[facility] ([facility]) Name Value Range Interpretation Code Description Data Becky rce(s) Supporting Document(s) glucose, fasting 145 mg/dL 70-100 Above high normal Glucose, Fas ting JEFF ([facility]) creatinine for GFR 1.20 mg/dL 0.70-1.30 Creatinine for GF R JEFF ([facility]) blood urea nitrogen 19 mg/dL 7-18 Above high normal Blood Ure a Nitrogen JEFF ([facility]) sodium level 137 mEq/L 136-145 Sodium Level JEFF ([facility]) glomerular filtration rate > 60.0 >60 Glomerula r Filtration Rate JEFF ([facility]) potassium serum 4.1 mEq/L 3.5-5.1 Potassium Serum ATHE NA ([facility]) anion gap 5 mEq/L 8-16 Below low normal Anion Gap JEFF ( [facility]) chloride level 103 mEq/L 98-107 Chloride Level JEFF ([facility]) carbon dioxide level 29 mEq/L 21-32 Carbon Dioxide Level JEFF ([facility]) calcium level 9.0 mg/dL 8.5-10.1 Calcium Level JEFF ( [facility]) ALT/SGPT 38 U/L 12-78 ALT/SGPT [facility] ([facility]) AST/SGOT 16 U/L 7-37 AST/SGOT [facility] ([facility]) bilirubin,total 0.4 mg/dL 0.2-1.0 Bilirubin,total ATHE ([facility]) total protein 7.6 gm/dL 6.4-8.2 Total Protein JEFF ( [facility]) alkaline phosphatase 82 U/L 45-117 Alkaline Phosph atase JE[facility] ([facility]) albumin 4.0 gm/dL 3.2-5.2 Albumin JE[facility] ([facility]) albumin/globulin ratio Albumin/globu bianca Ratio JEFF ([facility]) ID Date Data Source [id number] 09/18/2020 09:39:00 AM EST JEFF ([facility]) Name Value Range Interpretation Code Description Data Becky rce(s) Supporting Document(s) triglycerides level 677 mg/dL <150 Above high normal Triglycer ides Level JEFF ([facility]) HDL cholesterol 32 mg/dL >40 Below low normal HDL Cholestero l JE[facility] ([facility]) non-HDL-C 179 mg/dL Non-hdl-c JE[facility] ([facility]) cholesterol level 211 mg/dL <200 Above high normal Cholesterol Level JEFF ([facility]) cholesterol risk ratio <5 Above high normal Choles terol Risk Ratio JEFF ([facility]) ID Date Data Source [id number] 09/18/2020 09:39:00 AM EST JEFF ([facility]) Name Value Range Interpretation Code Description Data Becky rce(s) Supporting Document(s) glucose, fasting 145 mg/dL 70-100 Above high normal Glucose, Fas ting JEFF ([facility]) blood urea nitrogen 19 mg/dL 7-18 Above high normal Blood Ure a Nitrogen JEFF ([facility]) sodium level 137 mEq/L 136-145 Sodium Level JEFF ([facility]) glomerular filtration rate > 60.0 >60 Glomerula r Filtration Rate JEFF ([facility]) creatinine for GFR 1.20 mg/dL 0.70-1.30 Creatinine for GF R JEFF ([facility]) potassium serum 4.1 mEq/L 3.5-5.1 Potassium Serum ATHE ([facility]) chloride level 103 mEq/L 98-107 Chloride Level JEFF ([facility]) carbon dioxide level 29 mEq/L 21-32 Carbon Dioxide Level JEFF ([facility]) anion gap 5 mEq/L 8-16 Below low normal Anion Gap JEFF ( [facility]) calcium level 9.0 mg/dL 8.5-10.1 Calcium Level JEFF ( [facility]) ALT/SGPT 38 U/L 12-78 ALT/SGPT [facility] ([facility]) alkaline phosphatase 82 U/L 45-117 Alkaline Phosph atase JEFF ([facility]) bilirubin,total 0.4 mg/dL 0.2-1.0 Bilirubin,total ATHE ([facility]) AST/SGOT 16 U/L 7-37 AST/SGOT [facility] ([facility]) albumin 4.0 gm/dL 3.2-5.2 Albumin [facility] ([facility]) total protein 7.6 gm/dL 6.4-8.2 Total Protein JEFF ( [facility]) albumin/globulin ratio Albumin/globu bianca Ratio JEFF ([facility]) ID Date Data Source [id number] 09/18/2020 09:39:00 AM EST JEFF ([facility]) Name Value Range Interpretation Code Description Data Becky rce(s) Supporting Document(s) HDL cholesterol 32 mg/dL >40 Below low normal HDL Cholestero l JE[facility] ([facility]) cholesterol level 211 mg/dL <200 Above high normal Cholesterol Level JEFF ([facility]) triglycerides level 677 mg/dL <150 Above high normal Triglycer ides Level JEFF ([facility]) non-HDL-C 179 mg/dL Non-hdl-c [facility] ([facility]) cholesterol risk ratio <5 Above high normal Choles terol Risk Ratio JEFF ([facility]) ID Date Data Source [id number] 09/18/2020 09:39:00 AM EST [facility] ([facility]) Name Value Range Interpretation Code Description Data Becky rce(s) Supporting Document(s) glucose, fasting 145 mg/dL 70-100 Above high normal Glucose, Fas ting [facility] ([facility]) blood urea nitrogen 19 mg/dL 7-18 Above high normal Blood Ure a Nitrogen JE[facility] ([facility]) creatinine for GFR 1.20 mg/dL 0.70-1.30 Creatinine for GF R JEFF ([facility]) glomerular filtration rate > 60.0 >60 Glomerula r Filtration Rate JEFF ([facility]) sodium level 137 mEq/L 136-145 Sodium Level JE[facility] ([facility]) carbon dioxide level 29 mEq/L 21-32 Carbon Dioxide Level JEFF ([facility]) potassium serum 4.1 mEq/L 3.5-5.1 Potassium Serum ATHE NA ([facility]) chloride level 103 mEq/L 98-107 Chloride Level JEFF ([facility]) calcium level 9.0 mg/dL 8.5-10.1 Calcium Level JEFF ( [facility]) AST/SGOT 16 U/L 7-37 AST/SGOT [facility] ([facility]) anion gap 5 mEq/L 8-16 Below low normal Anion Gap JEFF ( [facility]) ALT/SGPT 38 U/L 12-78 ALT/SGPT [facility] ([facility]) alkaline phosphatase 82 U/L 45-117 Alkaline Phosph atase JEFF ([facility]) bilirubin,total 0.4 mg/dL 0.2-1.0 Bilirubin,total ATHE ([facility]) total protein 7.6 gm/dL 6.4-8.2 Total Protein JEFF ( [facility]) albumin/globulin ratio Albumin/globu bianca Ratio JEFF ([facility]) albumin 4.0 gm/dL 3.2-5.2 Albumin [facility] ([facility]) ID Date Data Source [id number] 09/18/2020 09:39:00 AM EST JEFF ([facility]) Name Value Range Interpretation Code Description Data Becky rce(s) Supporting Document(s) cholesterol level 211 mg/dL <200 Above high normal Cholesterol Level JEFF ([facility]) triglycerides level 677 mg/dL <150 Above high normal Triglycer ides Level JEFF ([facility]) HDL cholesterol 32 mg/dL >40 Below low normal HDL Cholestero l JE[facility] ([facility]) non-HDL-C 179 mg/dL Non-hdl-c [facility] ([facility]) cholesterol risk ratio <5 Above high normal Choles terol Risk Ratio JEFF ([facility]) ID Date Data Source [id number] 09/18/2020 09:39:00 AM EST JE[facility] ([facility]) Name Value Range Interpretation Code Description Data Becky rce(s) Supporting Document(s) blood urea nitrogen 19 mg/dL 7-18 Above high normal Blood Ure a Nitrogen JE[facility] ([facility]) glucose, fasting 145 mg/dL 70-100 Above high normal Glucose, Fas ting JEFF ([facility]) creatinine for GFR 1.20 mg/dL 0.70-1.30 Creatinine for GF R JEFF ([facility]) glomerular filtration rate > 60.0 >60 Glomerula r Filtration Rate JEFF ([facility]) sodium level 137 mEq/L 136-145 Sodium Level JEFF ([facility]) chloride level 103 mEq/L 98-107 Chloride Level JEFF ([facility]) potassium serum 4.1 mEq/L 3.5-5.1 Potassium Serum ATHE ([facility]) anion gap 5 mEq/L 8-16 Below low normal Anion Gap JEFF ( [facility]) calcium level 9.0 mg/dL 8.5-10.1 Calcium Level JEFF ( [facility]) carbon dioxide level 29 mEq/L 21-32 Carbon Dioxide Level JEFF ([facility]) AST/SGOT 16 U/L 7-37 AST/SGOT [facility] ([facility]) ALT/SGPT 38 U/L 12-78 ALT/SGPT [facility] ([facility]) alkaline phosphatase 82 U/L 45-117 Alkaline Phosph atase JE[facility] ([facility]) total protein 7.6 gm/dL 6.4-8.2 Total Protein JEFF ( [facility]) bilirubin,total 0.4 mg/dL 0.2-1.0 Bilirubin,total ATHE NA ([facility]) albumin/globulin ratio Albumin/globu bianca Ratio JEFF ([facility]) albumin 4.0 gm/dL 3.2-5.2 Albumin [facility] ([facility]) ID Date Data Source [id number] 09/18/2020 09:39:00 AM EST JEFF ([facility]) Name Value Range Interpretation Code Description Data Becky rce(s) Supporting Document(s) cholesterol level 211 mg/dL <200 Above high normal Cholesterol Level JEFF ([facility]) triglycerides level 677 mg/dL <150 Above high normal Triglycer ides Level JEFF ([facility]) cholesterol risk ratio <5 Above high normal Choles terol Risk Ratio JEFF ([facility]) non-HDL-C 179 mg/dL Non-hdl-c [facility] ([facility]) HDL cholesterol 32 mg/dL >40 Below low normal HDL Cholestero l JE[facility] ([facility]) ID Date Data Source [id number] 09/18/2020 09:39:00 AM EST [facility] ([facility]) Name Value Range Interpretation Code Description Data Becky rce(s) Supporting Document(s) glucose, fasting 145 mg/dL 70-100 Above high normal Glucose, Fas ting JEFF ([facility]) creatinine for GFR 1.20 mg/dL 0.70-1.30 Creatinine for GF R JEFF ([facility]) blood urea nitrogen 19 mg/dL 7-18 Above high normal Blood Ure a Nitrogen JEFF ([facility]) potassium serum 4.1 mEq/L 3.5-5.1 Potassium Serum ATH NA ([facility]) sodium level 137 mEq/L 136-145 Sodium Level JEFF ([facility]) glomerular filtration rate > 60.0 >60 Glomerula r Filtration Rate JEFF ([facility]) carbon dioxide level 29 mEq/L 21-32 Carbon Dioxide Level JEFF ([facility]) chloride level 103 mEq/L 98-107 Chloride Level JEFF ([facility]) anion gap 5 mEq/L 8-16 Below low normal Anion Gap JEFF ( [facility]) ALT/SGPT 38 U/L 12-78 ALT/SGPT [facility] ([facility]) calcium level 9.0 mg/dL 8.5-10.1 Calcium Level JEFF ( [facility]) AST/SGOT 16 U/L 7-37 AST/SGOT [facility] ([facility]) alkaline phosphatase 82 U/L 45-117 Alkaline Phosph atase JEFF ([facility]) total protein 7.6 gm/dL 6.4-8.2 Total Protein JEFF ( [facility]) bilirubin,total 0.4 mg/dL 0.2-1.0 Bilirubin,total ATHE ([facility]) albumin/globulin ratio Albumin/globu bianca Ratio JEFF ([facility]) albumin 4.0 gm/dL 3.2-5.2 Albumin [facility] ([facility]) ID Date Data Source [id number] 09/18/2020 09:39:00 AM EST [facility] ([facility]) Name Value Range Interpretation Code Description Data Becky rce(s) Supporting Document(s) triglycerides level 677 mg/dL <150 Above high normal Triglycer ides Level JEFF ([facility]) cholesterol level 211 mg/dL <200 Above high normal Cholesterol Level JEFF ([facility]) HDL cholesterol 32 mg/dL >40 Below low normal HDL Cholestero l JEFF ([facility]) cholesterol risk ratio <5 Above high normal Choles terol Risk Ratio JEFF ([facility]) non-HDL-C 179 mg/dL Non-hdl-c [facility] ([facility]) ID Date Data Source [id number] 09/18/2020 09:39:00 AM EST JEFF ([facility]) Name Value Range Interpretation Code Description Data Becky rce(s) Supporting Document(s) blood urea nitrogen 19 mg/dL 7-18 Above high normal Blood Ure a Nitrogen JE[facility] ([facility]) glucose, fasting 145 mg/dL 70-100 Above high normal Glucose, Fas ting JEFF ([facility]) glomerular filtration rate > 60.0 >60 Glomerula r Filtration Rate JEFF ([facility]) creatinine for GFR 1.20 mg/dL 0.70-1.30 Creatinine for GF R JEFF ([facility]) sodium level 137 mEq/L 136-145 Sodium Level JE[facility] ([facility]) potassium serum 4.1 mEq/L 3.5-5.1 Potassium Serum ATHE NA ([facility]) carbon dioxide level 29 mEq/L 21-32 Carbon Dioxide Level JEFF ([facility]) anion gap 5 mEq/L 8-16 Below low normal Anion Gap JEFF ( [facility]) chloride level 103 mEq/L 98-107 Chloride Level JEFF ([facility]) calcium level 9.0 mg/dL 8.5-10.1 Calcium Level JEFF ( [facility]) AST/SGOT 16 U/L 7-37 AST/SGOT [facility] ([facility]) ALT/SGPT 38 U/L 12-78 ALT/SGPT [facility] ([facility]) total protein 7.6 gm/dL 6.4-8.2 Total Protein JEFF ( [facility]) bilirubin,total 0.4 mg/dL 0.2-1.0 Bilirubin,total ATHE ([facility]) alkaline phosphatase 82 U/L 45-117 Alkaline Phosph atase JE[facility] ([facility]) albumin/globulin ratio Albumin/globu bianca Ratio JEFF ([facility]) albumin 4.0 gm/dL 3.2-5.2 Albumin [place] ([facility]) ID Date Data Source [id number] 08/17/2020 03:43:00 PM EST [facility] ([facility]) Name Value Range Interpretation Code Description Data Becky rce(s) Supporting Document(s) Hemoglobin A1c/Hemoglobin.total in Blood 8.8 [facility] ([facility]) Glucose [Mass/volume] in Serum or Plasma 277 [facility] ([facility]) ID Date Data Source [id number] 08/09/2020 02:13:00 PM EDT JE[facility] ([facility]) Name Value Range Interpretation Code Description Data Becky rce(s) Supporting Document(s) color, urine yellow yellow Color, Urine JE[facility] ([facility]) appearance, urine clear clear Appearance, Urine JE[facility] ([facility]) pH,urine 5.0 units 5.0-9.0 pH,urine JE[facility] ([facility]) protein, urine auto negative negative Protein, Urine A uto [facility] ([facility]) urobilinogen, urine auto 0.2 mg/dL 0.0-2.0 Urobilinoge n, Urine Auto [facility] ([facility]) ketone, urine auto negative negative Ketone, Urine Aut o [facility] ([facility]) glucose, urine (UA) auto 3+ negative Above high normal Gluc ose, Urine (UA) Auto [facility] ([facility]) specific gravity urine auto 1.002-1.035 Specifi c [place] Urine Auto JE[facility] ([facility]) blood, urine blood negative negative Blood, Urine Bloo d JE[facility] ([facility]) nitrite, urine auto negative negative Nitrite, Urine A uto [facility] ([facility]) bilirubin, urine auto negative negative Bilirubin, Uri ne Auto [facility] ([facility]) leukocyte esterase, urine auto negative negative Leukocyte Esterase, Urine Auto [facility] ([facility]) RBC, urine auto 2 /hpf 0-3 RBC, Urine Auto ATHE NA ([facility]) bacteria, urine auto negative negative Bacteria, Urine Auto JE[facility] ([facility]) squamous epithelial cell ur AU 0 /hpf 0-6 Squam ous Epithelial Cell Ur AU [facility] ([facility]) hyaline cast, urine auto 0 /lpf 0-1 Hyaline Maximilian t, Urine Auto [facility] ([facility]) WBC, urine auto 0 /hpf 0-3 WBC, Urine Auto ATHE NA ([facility]) ID Date Data Source [id number] 08/09/2020 02:13:00 PM EDT [facility] ([facility]) Name Value Range Interpretation Code Description Data Becky rce(s) Supporting Document(s) appearance, urine clear clear Appearance, Urine JE[facility] ([facility]) color, urine yellow yellow Color, Urine JE[facility] ([facility]) pH,urine 5.0 units 5.0-9.0 pH,urine JE[facility] ([facility]) protein, urine auto negative negative Protein, Urine A uto [facility] ([facility]) specific gravity urine auto 1.002-1.035 Specifi c [place] Urine Auto [facility] ([facility]) glucose, urine (UA) auto 3+ negative Above high normal Gluc ose, Urine (UA) Auto [facility] ([facility]) bilirubin, urine auto negative negative Bilirubin, Uri ne Auto [facility] ([facility]) ketone, urine auto negative negative Ketone, Urine Aut o [facility] ([facility]) urobilinogen, urine auto 0.2 mg/dL 0.0-2.0 Urobilinoge n, Urine Auto [facility] ([facility]) nitrite, urine auto negative negative Nitrite, Urine A uto [facility] ([facility]) leukocyte esterase, urine auto negative negative Leukocyte Esterase, Urine Auto [facility] ([facility]) WBC, urine auto 0 /hpf 0-3 WBC, Urine Auto ATHE NA ([facility]) bacteria, urine auto negative negative Bacteria, Urine Auto [facility] ([facility]) blood, urine blood negative negative Blood, Urine Bloo d [facility] ([facility]) RBC, urine auto 2 /hpf 0-3 RBC, Urine Auto ATHE NA ([facility]) hyaline cast, urine auto 0 /lpf 0-1 Hyaline Maximilian t, Urine Auto [facility] ([facility]) squamous epithelial cell ur AU 0 /hpf 0-6 Squam ous Epithelial Cell Ur AU [facility] ([facility]) ID Date Data Source [id number] 08/09/2020 02:13:00 PM EDT [facility] ([facility]) Name Value Range Interpretation Code Description Data Becky rce(s) Supporting Document(s) appearance, urine clear clear Appearance, Urine [facility] ([facility]) pH,urine 5.0 units 5.0-9.0 pH,urine [facility] ([facility]) color, urine yellow yellow Color, Urine JEFF ([facility]) specific gravity urine auto 1.002-1.035 Specifi c [place] Urine Auto [facility] ([facility]) ketone, urine auto negative negative Ketone, Urine Aut o [facility] ([facility]) protein, urine auto negative negative Protein, Urine A uto [facility] ([facility]) glucose, urine (UA) auto 3+ negative Above high normal Gluc ose, Urine (UA) Auto [facility] ([facility]) leukocyte esterase, urine auto negative negative Leukocyte Esterase, Urine Auto [facility] ([facility]) bilirubin, urine auto negative negative Bilirubin, Uri ne Auto [facility] ([facility]) nitrite, urine auto negative negative Nitrite, Urine A uto [facility] ([facility]) urobilinogen, urine auto 0.2 mg/dL 0.0-2.0 Urobilinoge n, Urine Auto [facility] ([facility]) blood, urine blood negative negative Blood, Urine Bloo d [facility] ([facility]) WBC, urine auto 0 /hpf 0-3 WBC, Urine Auto ATHE NA ([facility]) bacteria, urine auto negative negative Bacteria, Urine Auto [facility] ([facility]) RBC, urine auto 2 /hpf 0-3 RBC, Urine Auto ATHE NA ([facility]) squamous epithelial cell ur AU 0 /hpf 0-6 Squam ous Epithelial Cell Ur AU [facility] ([facility]) hyaline cast, urine auto 0 /lpf 0-1 Hyaline Maximilian t, Urine Auto [facility] ([facility]) ID Date Data Source [id number] 08/09/2020 02:13:00 PM EDT [facility] ([facility]) Name Value Range Interpretation Code Description Data Becky rce(s) Supporting Document(s) appearance, urine clear clear Appearance, Urine [facility] ([facility]) color, urine yellow yellow Color, Urine JE[facility] ([facility]) glucose, urine (UA) auto 3+ negative Above high normal Gluc ose, Urine (UA) Auto [facility] ([facility]) specific gravity urine auto 1.002-1.035 Specifi c [place] Urine Auto [facility] ([facility]) protein, urine auto negative negative Protein, Urine A uto [facility] ([facility]) pH,urine 5.0 units 5.0-9.0 pH,urine [facility] ([facility]) ketone, urine auto negative negative Ketone, Urine Aut o [facility] ([facility]) urobilinogen, urine auto 0.2 mg/dL 0.0-2.0 Urobilinoge n, Urine Auto [facility] ([facility]) bilirubin, urine auto negative negative Bilirubin, Uri ne Auto [facility] ([facility]) nitrite, urine auto negative negative Nitrite, Urine A uto [facility] ([facility]) blood, urine blood negative negative Blood, Urine Bloo d [facility] ([facility]) leukocyte esterase, urine auto negative negative Leukocyte Esterase, Urine Auto [facility] ([facility]) bacteria, urine auto negative negative Bacteria, Urine Auto [facility] ([facility] [facility] RBC, urine auto 2 /hpf 0-3 RBC, Urine Auto ATHE NA ([facility]) squamous epithelial cell ur AU 0 /hpf 0-6 Squam ous Epithelial Cell Ur AU JEFF ([facility]) WBC, urine auto 0 /hpf 0-3 WBC, Urine Auto ATHE NA ([facility]) hyaline cast, urine auto 0 /lpf 0-1 Hyaline Maximilian t, Urine Auto JEFF ([facility]) ID Date Data Source [id number] 08/09/2020 02:13:00 PM EDT JEFF ([facility]) Name Value Range Interpretation Code Description Data Becky rce(s) Supporting Document(s) pH,urine 5.0 units 5.0-9.0 pH,urine JEFF ([facility]) specific gravity urine auto 1.002-1.035 Specifi c [place] Urine Auto JEFF ([facility]) appearance, urine clear clear Appearance, Urine JEFF ([facility]) color, urine yellow yellow Color, Urine JEFF (No [facility]) protein, urine auto negative negative Protein, Urine A uto JEFF ([facility]) ketone, urine auto negative negative Ketone, Urine Aut o JEFF ([facility]) urobilinogen, urine auto 0.2 mg/dL 0.0-2.0 Urobilinoge n, Urine Auto JEFF ([facility]) glucose, urine (UA) auto 3+ negative Above high normal Gluc ose, Urine (UA) Auto JEFF ([facility]) blood, urine blood negative negative Blood, Urine Bloo d JEFF ([facility]) nitrite, urine auto negative negative Nitrite, Urine A uto JEFF ([facility]) bilirubin, urine auto negative negative Bilirubin, Uri ne Auto JEFF ([facility]) WBC, urine auto 0 /hpf 0-3 WBC, Urine Auto ATHE NA ([facility]) leukocyte esterase, urine auto negative negative Leukocyte Esterase, Urine Auto JEFF ([facility]) RBC, urine auto 2 /hpf 0-3 RBC, Urine Auto ATHE NA ([facility]) hyaline cast, urine auto 0 /lpf 0-1 Hyaline Maximilian t, Urine Auto JEFF ([facility]) bacteria, urine auto negative negative Bacteria, Urine Auto JEFF ([facility]) squamous epithelial cell ur AU 0 /hpf 0-6 Squam ous Epithelial Cell Ur AU JEFF ([facility]) ID Date Data Source [id number] 08/09/2020 02:13:00 PM EDT JEFF ([facility]) Name Value Range Interpretation Code Description Data Becky rce(s) Supporting Document(s) appearance, urine clear clear Appearance, Urine JEFF ([facility]) specific gravity urine auto 1.002-1.035 Specifi c [place] Urine Auto JEFF ([facility]) pH,urine 5.0 units 5.0-9.0 pH,urine JEFF ([facility]) color, urine yellow yellow Color, Urine JEFF (No [facility]) protein, urine auto negative negative Protein, Urine A uto JEFF ([facility]) urobilinogen, urine auto 0.2 mg/dL 0.0-2.0 Urobilinoge n, Urine Auto JEFF ([facility]) glucose, urine (UA) auto 3+ negative Above high normal Gluc ose, Urine (UA) Auto JEFF ([facility]) ketone, urine auto negative negative Ketone, Urine Aut o JEFF ([facility]) blood, urine blood negative negative Blood, Urine Bloo d JEFF ([facility]) nitrite, urine auto negative negative Nitrite, Urine A uto JEFF ([facility]) leukocyte esterase, urine auto negative negative Leukocyte Esterase, Urine Auto JEFF ([facility]) bilirubin, urine auto negative negative Bilirubin, Uri ne Auto JEFF ([facility]) squamous epithelial cell ur AU 0 /hpf 0-6 Squam ous Epithelial Cell Ur AU JEFF ([facility]) bacteria, urine auto negative negative Bacteria, Urine Auto JEFF ([facility]) WBC, urine auto 0 /hpf 0-3 WBC, Urine Auto ATHE NA ([facility]) hyaline cast, urine auto 0 /lpf 0-1 Hyaline Maximilian t, Urine Auto JEFF ([facility]) RBC, urine auto 2 /hpf 0-3 RBC, Urine Auto ATHE NA ([facility]) ID Date Data Source [id number] 08/09/2020 02:13:00 PM EDT JEFF ([facility]) Name Value Range Interpretation Code Description Data Becky rce(s) Supporting Document(s) color, urine yellow yellow Color, Urine JEFF (No [facility]) appearance, urine clear clear Appearance, Urine JEFF ([facility]) protein, urine auto negative negative Protein, Urine A pro JEFF ([facility]) pH,urine 5.0 units 5.0-9.0 pH,urine JEFF ([facility]) glucose, urine (UA) auto 3+ negative Above high normal Gluc ose, Urine (UA) Auto JEFF ([facility]) specific gravity urine auto 1.002-1.035 Specifi c [place] Urine Auto JEFF ([facility]) bilirubin, urine auto negative negative Bilirubin, Uri ne Auto JEFF ([facility]) leukocyte esterase, urine auto negative negative Leukocyte Esterase, Urine Auto JEFF ([facility]) ketone, urine auto negative negative Ketone, Urine Aut o JEFF ([facility]) nitrite, urine auto negative negative Nitrite, Urine A uto JEFF ([facility]) urobilinogen, urine auto 0.2 mg/dL 0.0-2.0 Urobilinoge n, Urine Auto JEFF ([facility]) bacteria, urine auto negative negative Bacteria, Urine Auto JEFF ([facility]) blood, urine blood negative negative Blood, Urine Bloo d JEFF ([facility]) squamous epithelial cell ur AU 0 /hpf 0-6 Squam ous Epithelial Cell Ur AU JEFF ([facility]) RBC, urine auto 2 /hpf 0-3 RBC, Urine Auto ATHE NA ([facility]) WBC, urine auto 0 /hpf 0-3 WBC, Urine Auto ATHE NA ([facility]) hyaline cast, urine auto 0 /lpf 0-1 Hyaline Maximilian t, Urine Auto JEFF ([facility]) ID Date Data Source [id number] 08/09/2020 02:13:00 PM EDT JEFF ([facility]) Name Value Range Interpretation Code Description Data Becky rce(s) Supporting Document(s) pH,urine 5.0 units 5.0-9.0 pH,urine JEFF ([facility]) specific gravity urine auto 1.002-1.035 Specifi c [place] Urine Auto JEFF ([facility]) color, urine yellow yellow Color, Urine JEFF (No [facility]) appearance, urine clear clear Appearance, Urine JEFF ([facility]) urobilinogen, urine auto 0.2 mg/dL 0.0-2.0 Urobilinoge n, Urine Auto JEFF ([facility]) glucose, urine (UA) auto 3+ negative Above high normal Gluc ose, Urine (UA) Auto JEFF ([facility]) ketone, urine auto negative negative Ketone, Urine Aut o JEFF ([facility]) protein, urine auto negative negative Protein, Urine A uto JEFF ([facility]) bilirubin, urine auto negative negative Bilirubin, Uri ne Auto JEFF ([facility]) WBC, urine auto 0 /hpf 0-3 WBC, Urine Auto ATHE NA ([facility]) leukocyte esterase, urine auto negative negative Leukocyte Esterase, Urine Auto JEFF ([facility]) nitrite, urine auto negative negative Nitrite, Urine A uto JEFF ([facility]) blood, urine blood negative negative Blood, Urine Bloo d JEFF ([facility]) squamous epithelial cell ur AU 0 /hpf 0-6 Squam ous Epithelial Cell Ur AU JEFF ([facility]) bacteria, urine auto negative negative Bacteria, Urine Auto JEFF ([facility]) RBC, urine auto 2 /hpf 0-3 RBC, Urine Auto ATHE NA ([facility]) hyaline cast, urine auto 0 /lpf 0-1 Hyaline Maximilian t, Urine Auto JEFF ([facility]) ID Date Data Source [id number] 08/09/2020 02:13:00 PM EDT JEFF ([facility]) Name Value Range Interpretation Code Description Data Becky rce(s) Supporting Document(s) pH,urine 5.0 units 5.0-9.0 pH,urine JEFF ([facility]) appearance, urine clear clear Appearance, Urine JEFF ([facility]) color, urine yellow yellow Color, Urine JEFF (No [facility]) specific gravity urine auto 1.002-1.035 Specifi c [place] Urine Auto JEFF ([facility]) protein, urine auto negative negative Protein, Urine A uto JEFF ([facility]) urobilinogen, urine auto 0.2 mg/dL 0.0-2.0 Urobilinoge n, Urine Auto JEFF ([facility]) glucose, urine (UA) auto 3+ negative Above high normal Gluc ose, Urine (UA) Auto JEFF ([facility]) ketone, urine auto negative negative Ketone, Urine Aut o JEFF ([facility]) WBC, urine auto 0 /hpf 0-3 WBC, Urine Auto ATHE NA ([facility]) blood, urine blood negative negative Blood, Urine Bloo d JEFF ([facility]) leukocyte esterase, urine auto negative negative Leukocyte Esterase, Urine Auto JEFF ([facility]) bilirubin, urine auto negative negative Bilirubin, Uri ne Auto JEFF ([facility]) nitrite, urine auto negative negative Nitrite, Urine A uto JEFF ([facility]) RBC, urine auto 2 /hpf 0-3 RBC, Urine Auto ATHE NA ([facility]) bacteria, urine auto negative negative Bacteria, Urine Auto JEFF ([facility]) hyaline cast, urine auto 0 /lpf 0-1 Hyaline Maximilian t, Urine Auto JEFF ([facility]) squamous epithelial cell ur AU 0 /hpf 0-6 Squam ous Epithelial Cell Ur AU JEFF ([facility]) ID Date Data Source [id number] 08/09/2020 02:13:00 PM EDT JEFF ([facility]) Name Value Range Interpretation Code Description Data Becky rce(s) Supporting Document(s) color, urine yellow yellow Color, Urine JEFF (No [facility]) appearance, urine clear clear Appearance, Urine JEFF ([facility]) pH,urine 5.0 units 5.0-9.0 pH,urine JEFF ([facility]) protein, urine auto negative negative Protein, Urine A uto JEFF ([facility]) specific gravity urine auto 1.002-1.035 Specifi c [place] Urine Auto JEFF ([facility]) ketone, urine auto negative negative Ketone, Urine Aut o JEFF ([facility]) glucose, urine (UA) auto 3+ negative Above high normal Gluc ose, Urine (UA) Auto JEFF ([facility]) urobilinogen, urine auto 0.2 mg/dL 0.0-2.0 Urobilinoge n, Urine Auto JEFF ([facility]) leukocyte esterase, urine auto negative negative Leukocyte Esterase, Urine Auto JEFF ([facility]) nitrite, urine auto negative negative Nitrite, Urine A uto JEFF ([facility]) blood, urine blood negative negative Blood, Urine Bloo d JEFF ([facility]) bilirubin, urine auto negative negative Bilirubin, Uri ne Auto JEFF ([facility]) WBC, urine auto 0 /hpf 0-3 WBC, Urine Auto ATHE NA ([facility]) RBC, urine auto 2 /hpf 0-3 RBC, Urine Auto ATHE NA ([facility]) hyaline cast, urine auto 0 /lpf 0-1 Hyaline Maximilian t, Urine Auto JEFF ([facility]) squamous epithelial cell ur AU 0 /hpf 0-6 Squam ous Epithelial Cell Ur AU JEFF ([facility]) bacteria, urine auto negative negative Bacteria, Urine Auto JEFF ([facility]) ID Date Data Source [id number] 08/09/2020 02:13:00 PM EDT JEFF ([facility]) Name Value Range Interpretation Code Description Data Becky rce(s) Supporting Document(s) specific gravity urine auto 1.002-1.035 Specifi c [place] Urine Auto JEFF ([facility]) pH,urine 5.0 units 5.0-9.0 pH,urine JEFF ([facility]) appearance, urine clear clear Appearance, Urine JEFF ([facility]) color, urine yellow yellow Color, Urine JEFF (No [facility]) bilirubin, urine auto negative negative Bilirubin, Uri ne Auto JEFF ([facility]) ketone, urine auto negative negative Ketone, Urine Aut o JEFF ([facility]) protein, urine auto negative negative Protein, Urine A uto JEFF ([facility]) glucose, urine (UA) auto 3+ negative Above high normal Gluc ose, Urine (UA) Auto JEFF ([facility]) urobilinogen, urine auto 0.2 mg/dL 0.0-2.0 Urobilinoge n, Urine Auto JEFF ([facility]) leukocyte esterase, urine auto negative negative Leukocyte Esterase, Urine Auto JEFF ([facility]) WBC, urine auto 0 /hpf 0-3 WBC, Urine Auto ATHE NA ([facility]) nitrite, urine auto negative negative Nitrite, Urine A uto JEFF ([facility]) blood, urine blood negative negative Blood, Urine Bloo d JEFF ([facility]) squamous epithelial cell ur AU 0 /hpf 0-6 Squam ous Epithelial Cell Ur AU JEFF ([facility]) RBC, urine auto 2 /hpf 0-3 RBC, Urine Auto ATHE NA ([facility]) hyaline cast, urine auto 0 /lpf 0-1 Hyaline Maximilian t, Urine Auto JEFF ([facility]) bacteria, urine auto negative negative Bacteria, Urine Auto JEFF ([facility]) ID Date Data Source [id number] 08/09/2020 02:13:00 PM EDT JEFF ([facility]) Name Value Range Interpretation Code Description Data Becky rce(s) Supporting Document(s) color, urine yellow yellow Color, Urine JEFF (No [facility]) specific gravity urine auto 1.002-1.035 Specifi c [place] Urine Auto JEFF ([facility]) appearance, urine clear clear Appearance, Urine JEFF ([facility]) pH,urine 5.0 units 5.0-9.0 pH,urine JEFF ([facility]) protein, urine auto negative negative Protein, Urine A uto JEFF ([facility]) ketone, urine auto negative negative Ketone, Urine Aut o JEFF ([facility]) glucose, urine (UA) auto 3+ negative Above high normal Gluc ose, Urine (UA) Auto JEFF ([facility]) urobilinogen, urine auto 0.2 mg/dL 0.0-2.0 Urobilinoge n, Urine Auto JEFF ([facility]) bilirubin, urine auto negative negative Bilirubin, Uri ne Auto JEFF ([facility]) RBC, urine auto 2 /hpf 0-3 RBC, Urine Auto ATHE NA ([facility]) WBC, urine auto 0 /hpf 0-3 WBC, Urine Auto ATHE NA ([facility]) leukocyte esterase, urine auto negative negative Leukocyte Esterase, Urine Auto JEFF ([facility]) blood, urine blood negative negative Blood, Urine Bloo d JEFF ([facility]) nitrite, urine auto negative negative Nitrite, Urine A uto JEFF ([facility]) hyaline cast, urine auto 0 /lpf 0-1 Hyaline Maximilian t, Urine Auto JEFF ([facility]) bacteria, urine auto negative negative Bacteria, Urine Auto JEFF ([facility]) squamous epithelial cell ur AU 0 /hpf 0-6 Squam ous Epithelial Cell Ur AU JEFF ([facility]) ID Date Data Source [id number] 08/09/2020 02:13:00 PM EDT JEFF ([facility]) Name Value Range Interpretation Code Description Data Becky rce(s) Supporting Document(s) pH,urine 5.0 units 5.0-9.0 pH,urine JEFF ([facility]) appearance, urine clear clear Appearance, Urine JEFF ([facility]) color, urine yellow yellow Color, Urine JEFF (No [facility]) specific gravity urine auto 1.002-1.035 Specifi c [place] Urine Auto JEFF ([facility]) glucose, urine (UA) auto 3+ negative Above high normal Gluc ose, Urine (UA) Auto JEFF ([facility]) protein, urine auto negative negative Protein, Urine A uto JEFF ([facility]) ketone, urine auto negative negative Ketone, Urine Aut o JEFF ([facility]) urobilinogen, urine auto 0.2 mg/dL 0.0-2.0 Urobilinoge n, Urine Auto JEFF ([facility]) blood, urine blood negative negative Blood, Urine Bloo d JEFF ([facility]) leukocyte esterase, urine auto negative negative Leukocyte Esterase, Urine Auto JEFF ([facility]) bilirubin, urine auto negative negative Bilirubin, Uri ne Auto JEFF ([facility]) nitrite, urine auto negative negative Nitrite, Urine A uto JEFF ([facility]) WBC, urine auto 0 /hpf 0-3 WBC, Urine Auto ATHE NA ([facility]) hyaline cast, urine auto 0 /lpf 0-1 Hyaline Maximilian t, Urine Auto JEFF ([facility]) squamous epithelial cell ur AU 0 /hpf 0-6 Squam ous Epithelial Cell Ur AU JEFF ([facility]) RBC, urine auto 2 /hpf 0-3 RBC, Urine Auto ATHE NA ([facility]) bacteria, urine auto negative negative Bacteria, Urine Auto JEFF ([facility]) ID Date Data Source [id number] 08/09/2020 02:13:00 PM EDT JEFF ([facility]) Name Value Range Interpretation Code Description Data Becky rce(s) Supporting Document(s) appearance, urine clear clear Appearance, Urine JEFF ([facility]) color, urine yellow yellow Color, Urine JEFF (No [facility]) specific gravity urine auto 1.002-1.035 Specifi c [place] Urine Auto JEFF ([facility]) glucose, urine (UA) auto 3+ negative Above high normal Gluc ose, Urine (UA) Auto JEFF ([facility]) protein, urine auto negative negative Protein, Urine A uto JEFF ([facility]) pH,urine 5.0 units 5.0-9.0 pH,urine JEFF ([facility]) nitrite, urine auto negative negative Nitrite, Urine A uto JEFF ([facility]) ketone, urine auto negative negative Ketone, Urine Aut o JEFF ([facility]) urobilinogen, urine auto 0.2 mg/dL 0.0-2.0 Urobilinoge n, Urine Auto JEFF ([facility]) leukocyte esterase, urine auto negative negative Leukocyte Esterase, Urine Auto JEFF ([facility]) bilirubin, urine auto negative negative Bilirubin, Uri ne Auto JEFF ([facility]) RBC, urine auto 2 /hpf 0-3 RBC, Urine Auto ATHE NA ([facility]) blood, urine blood negative negative Blood, Urine Bloo d JEFF ([facility]) bacteria, urine auto negative negative Bacteria, Urine Auto JEFF ([facility]) WBC, urine auto 0 /hpf 0-3 WBC, Urine Auto ATHE NA ([facility]) squamous epithelial cell ur AU 0 /hpf 0-6 Squam ous Epithelial Cell Ur AU JEFF ([facility]) hyaline cast, urine auto 0 /lpf 0-1 Hyaline Maximilian t, Urine Auto JEFF ([facility]) ID Date Data Source [id number] 08/09/2020 02:13:00 PM EDT JEFF ([facility]) Name Value Range Interpretation Code Description Data Becky rce(s) Supporting Document(s) appearance, urine clear clear Appearance, Urine JEFF ([facility]) color, urine yellow yellow Color, [facility], urine auto negative negative Protein, Urine A uto JEFF ([facility]) pH,urine 5.0 units 5.0-9.0 pH,urine JEFF ([facility]) specific gravity urine auto 1.002-1.035 Specifi c [place] Urine Auto JEFF ([facility]) glucose, urine (UA) auto 3+ negative Above high normal Gluc ose, Urine (UA) Auto JEFF ([facility]) urobilinogen, urine auto 0.2 mg/dL 0.0-2.0 Urobilinoge n, Urine Auto JEFF ([facility]) ketone, urine auto negative negative Ketone, Urine Aut o JEFF ([facility]) bilirubin, urine auto negative negative Bilirubin, Uri ne Auto JEFF ([facility]) nitrite, urine auto negative negative Nitrite, Urine A uto JEFF ([facility]) blood, urine blood negative negative Blood, Urine Bloo d JEFF ([facility]) WBC, urine auto 0 /hpf 0-3 WBC, Urine Auto ATHE NA ([facility]) leukocyte esterase, urine auto negative negative Leukocyte Esterase, Urine Auto JEFF ([facility]) RBC, urine auto 2 /hpf 0-3 RBC, Urine Auto ATHE NA ([facility]) hyaline cast, urine auto 0 /lpf 0-1 Hyaline Maximilian t, Urine Auto JEFF ([facility]) squamous epithelial cell ur AU 0 /hpf 0-6 Squam ous Epithelial Cell Ur AU JEFF ([facility]) bacteria, urine auto negative negative Bacteria, Urine Auto JEFF ([facility]) ID Date Data Source [id number] 08/09/2020 02:13:00 PM EDT JEFF ([facility]) Name Value Range Interpretation Code Description Data Becky rce(s) Supporting Document(s) appearance, urine clear clear Appearance, Urine JEFF ([facility]) pH,urine 5.0 units 5.0-9.0 pH,urine JEFF ([facility]) specific gravity urine auto 1.002-1.035 Specifi c [place] Urine Auto JEFF ([facility]) color, urine yellow yellow Color, Urine JEFF (No [facility]) urobilinogen, urine auto 0.2 mg/dL 0.0-2.0 Urobilinoge n, Urine Auto JEFF ([facility]) glucose, urine (UA) auto 3+ negative Above high normal Gluc ose, Urine (UA) Auto JEFF ([facility]) ketone, urine auto negative negative Ketone, Urine Aut o JEFF ([facility]) protein, urine auto negative negative Protein, Urine A uto JEFF ([facility]) blood, urine blood negative negative Blood, Urine Bloo d JEFF ([facility]) bilirubin, urine auto negative negative Bilirubin, Uri ne Auto JEFF ([facility]) leukocyte esterase, urine auto negative negative Leukocyte Esterase, Urine Auto JEFF ([facility]) nitrite, urine auto negative negative Nitrite, Urine A uto JEFF ([facility]) bacteria, urine auto negative negative Bacteria, Urine Auto JEFF ([facility]) hyaline cast, urine auto 0 /lpf 0-1 Hyaline Maximilian t, Urine Auto JEFF ([facility]) squamous epithelial cell ur AU 0 /hpf 0-6 Squam ous Epithelial Cell Ur AU JEFF ([facility]) WBC, urine auto 0 /hpf 0-3 WBC, Urine Auto ATHE NA ([facility]) RBC, urine auto 2 /hpf 0-3 RBC, Urine Auto ATHE NA ([facility]) ID Date Data Source [id number] 08/09/2020 02:13:00 PM EDT JEFF ([facility]) Name Value Range Interpretation Code Description Data Becky rce(s) Supporting Document(s) appearance, urine clear clear Appearance, Urine JEFF ([facility]) color, urine yellow yellow Color, Urine JEFF (No [facility]) pH,urine 5.0 units 5.0-9.0 pH,urine JEFF ([facility]) protein, urine auto negative negative Protein, Urine A uto JEFF ([facility]) ketone, urine auto negative negative Ketone, Urine Aut o JEFF ([facility]) specific gravity urine auto 1.002-1.035 Specifi c [place] Urine Auto JEFF ([facility]) glucose, urine (UA) auto 3+ negative Above high normal Gluc ose, Urine (UA) Auto JEFF ([facility]) blood, urine blood negative negative Blood, Urine Bloo d JEFF ([facility]) nitrite, urine auto negative negative Nitrite, Urine A uto JEFF ([facility]) bilirubin, urine auto negative negative Bilirubin, Uri ne Auto JEFF ([facility]) urobilinogen, urine auto 0.2 mg/dL 0.0-2.0 Urobilinoge n, Urine Auto JEFF ([facility]) leukocyte esterase, urine auto negative negative Leukocyte Esterase, Urine Auto JEFF ([facility]) bacteria, urine auto negative negative Bacteria, Urine Auto JEFF ([facility]) WBC, urine auto 0 /hpf 0-3 WBC, Urine Auto ATHE NA ([facility]) RBC, urine auto 2 /hpf 0-3 RBC, Urine Auto ATHE NA ([facility]) squamous epithelial cell ur AU 0 /hpf 0-6 Squam ous Epithelial Cell Ur AU JEFF ([facility]) hyaline cast, urine auto 0 /lpf 0-1 Hyaline Maximilian t, Urine Auto JEFF ([facility]) ID Date Data Source [id number] 08/09/2020 12:40:00 PM EDT [place] ([facility]) Name Value Range Interpretation Code Description Data Becky rce(s) Supporting Document(s) Hemoglobin A1c/Hemoglobin.total in Blood 8.6 % Hemoglobin a1C [place] ([facility]) estimated average glucose 200 mg/dL 60-110 Above high norm al Estimated Average Glucose [facility]) ID Date Data Source [id number] 08/09/2020 12:40:00 PM EDT [facility]) Name Value Range Interpretation Code Description Data Becky rce(s) Supporting Document(s) acetone/ketone 1.22 mg/dL <2.81 Acetone/ketone JEFF ([facility]) ID Date Data Source [id number] 08/09/2020 12:40:00 PM EDT JEFF ([facility]) Name Value Range Interpretation Code Description Data Becky rce(s) Supporting Document(s) blood urea nitrogen 16 mg/dL 7-18 Blood Urea Nitro gen JEFF ([facility]) glucose, fasting 210 mg/dL 70-100 Above high normal Glucose, Fas ting JEFF ([facility]) sodium level 135 mEq/L 136-145 Below low normal Sodium Level ATHE NA ([facility]) glomerular filtration rate > 60.0 >60 Glomerula r Filtration Rate JEFF ([facility]) creatinine for GFR 1.03 mg/dL 0.70-1.30 Creatinine for GF R JEFF ([facility]) chloride level 101 mEq/L 98-107 Chloride Level JEFF ([facility]) potassium serum 4.0 mEq/L 3.5-5.1 Potassium Serum ATHE NA ([facility]) carbon dioxide level 28 mEq/L 21-32 Carbon Dioxide Level JEFF ([facility]) anion gap 6 mEq/L 8-16 Below low normal Anion Gap JEFF ( [facility]) calcium level 9.7 mg/dL 8.5-10.1 Calcium Level JEFF ( [facility]) ID Date Data Source [id number] 08/09/2020 12:40:00 PM EDT JE[place] ([facility]) Name Value Range Interpretation Code Description Data Becky rce(s) Supporting Document(s) AST/SGOT 24 U/L 7-37 AST/SGOT JEFF ([facility]) alkaline phosphatase 101 U/L 45-117 Alkaline Phosph atase JEFF ([facility]) ALT/SGPT 39 U/L 12-78 ALT/SGPT JEFF ([facility]) bilirubin,total 0.4 mg/dL 0.2-1.0 Bilirubin,total ATHE NA ([facility]) total protein 7.6 gm/dL 6.4-8.2 Total Protein JEFF ( [facility]) bilirubin,direct 0.1 mg/dL 0.0-0.2 Bilirubin,direct AT [place] ([facility]) albumin/globulin ratio Albumin/globu bianca Ratio JEFF ([facility]) albumin 3.9 gm/dL 3.2-5.2 Albumin JEFF ([facility]) ID Date Data Source [id number] 08/09/2020 12:40:00 PM EDT JEFF ([facility]) Name Value Range Interpretation Code Description Data Becky rce(s) Supporting Document(s) red blood count 5.23 10 4.30-6.10 Red Blood Count ATHE ([facility]) white blood count 7.4 10 4.0-10.0 White Blood Count JEFF ([facility]) hemoglobin 15.5 g/dL 13.5-17.5 Hemoglobin JEFF ([facility]) hematocrit 46.0 % 42.0-52.0 Hematocrit JEFF ([facility]) mean corpuscular hemoglobin 29.6 pg 27.0-33.0 Mean Cor puscular Hemoglobin JEFF ([facility]) mean corpuscular HGB conc 33.7 g/dL 32.0-36.5 Mean Corpu scular HGB Conc JEFF ([facility]) mean corpuscular volume 88.0 fL 80.0-96.0 Mean Corpusc ular Volume JEFF ([facility]) red cell distribution width 12.5 % 11.5-14.5 Red Cell Distribution Width JEFF ([facility]) neutrophils % 60.8 % 36.0-66.0 Neutrophils % JEFF ( [facility]) platelet count, automated 186 10 150-450 Platelet C ount, Automated JEFF ([facility]) lymph % 23.0 % 24.0-44.0 Below low normal Lymph % JEFF ( [facility]) mono % 7.6 % 0.0-5.0 Above high normal [place] % JEFF ([facility]) eos % 5.8 % 0.0-3.0 Above high normal Eos % JEFF ([facility]) neutrophils # 4.5 10 1.5-8.5 Neutrophils # JEFF ( [facility]) baso % 1.0 % 0.0-1.0 Baso % JEFF ([facility]) immature granulocyte % 1.8 % 0-3.0 Immature Gran ulocyte % JEFF ([facility]) nucleated red blood cell % 0.0 % 0-0 Nucleated Red Blood Cell % JEFF ([facility]) lymph # 1.7 10 1.5-5.0 Lymph # JEFF ([facility]) eos # 0.4 10 0.0-0.5 Eos # JEFF ([facility]) mono # 0.6 10 0.0-0.8 [place] # JEFF ([facility]) baso # 0.1 10 0.0-0.2 Baso # JEFF ([facility]) ID Date Data Source [id number] 08/09/2020 12:40:00 PM EDT [place] ([facility]) Name Value Range Interpretation Code Description Data Becky rce(s) Supporting Document(s) venous pH 7.320 units 7.330-7.430 Below low normal Venous pH JEFF ([facility]) venous partial pressure O2 62.5 mmHg 30.0-50.0 Above high nor mal Venous Partial Pressure O2 JEFF ([facility]) venous total CO2 22.8 mEq/L 24.0-28.0 Below low normal Venous Total CO2 JE[facility] ([facility]) venous partial pressure CO2 42.6 mmHg 38.0-50.0 Venous P artial Pressure CO2 JEFF ([facility]) venous base excess -2.0-2.0 Below low normal Venous Base Excess JEFF ([facility]) venous HCO3 21.5 mEq/L 23.0-27.0 Below low normal Venous HCO3 JEFF ([facility]) venous standard HCO3 20.7 mEq/L Venous Standard HCO3 JEFF ([facility]) venous O2 saturation 91.2 % 60.0-80.0 Above high normal Venous O 2 Saturation [place] ([facility]) ID Date Data Source [id number] 08/09/2020 12:40:00 PM EDT [place] ([facility]) Name Value Range Interpretation Code Description Data Becky rce(s) Supporting Document(s) estimated average glucose 200 mg/dL 60-110 Above high norm al Estimated Average Glucose [place] ([facility]) Hemoglobin A1c/Hemoglobin.total in Blood 8.6 % Hemoglobin a1C [facility]) ID Date Data Source [id number] 08/09/2020 12:40:00 PM EDT [place] ([facility]) Name Value Range Interpretation Code Description Data Becky rce(s) Supporting Document(s) acetone/ketone 1.22 mg/dL <2.81 Acetone/ketone [facility]) ID Date Data Source [id number] 08/09/2020 12:40:00 PM EDT [place] ([facility]) Name Value Range Interpretation Code Description Data Becky rce(s) Supporting Document(s) creatinine for GFR 1.03 mg/dL 0.70-1.30 Creatinine for GF R [place] ([facility]) blood urea nitrogen 16 mg/dL 7-18 Blood Urea Nitro gen JEFF ([facility]) glucose, fasting 210 mg/dL 70-100 Above high normal Glucose, Fas ting JEFF ([facility]) sodium level 135 mEq/L 136-145 Below low normal Sodium Level ATHE NA ([facility]) potassium serum 4.0 mEq/L 3.5-5.1 Potassium Serum ATHE NA ([facility]) glomerular filtration rate > 60.0 >60 Glomerula r Filtration Rate [place] ([facility]) chloride level 101 mEq/L 98-107 Chloride Level [place] ([facility]) anion gap 6 mEq/L 8-16 Below low normal Anion Gap [place] ( [facility]) carbon dioxide level 28 mEq/L 21-32 Carbon Dioxide Level JEFF ([facility]) calcium level 9.7 mg/dL 8.5-10.1 Calcium Level JEFF ( [facility]) ID Date Data Source [id number] 08/09/2020 12:40:00 PM EDT [place] ([facility]) Name Value Range Interpretation Code Description Data Becky rce(s) Supporting Document(s) AST/SGOT 24 U/L 7-37 AST/SGOT [facility] ([facility]) ALT/SGPT 39 U/L 12-78 ALT/SGPT JE[facility] ([facility]) bilirubin,total 0.4 mg/dL 0.2-1.0 Bilirubin,total ATHE NA ([facility]) alkaline phosphatase 101 U/L 45-117 Alkaline Phosph atase JEFF ([facility]) bilirubin,direct 0.1 mg/dL 0.0-0.2 Bilirubin,direct AT [facility] ([facility]) total protein 7.6 gm/dL 6.4-8.2 Total Protein JEFF ( [facility]) albumin/globulin ratio Albumin/globu bianca Ratio JEFF ([facility]) albumin 3.9 gm/dL 3.2-5.2 Albumin JEFF ([facility]) ID Date Data Source [id number] 08/09/2020 12:40:00 PM EDT [place] ([facility]) Name Value Range Interpretation Code Description Data Becky rce(s) Supporting Document(s) red blood count 5.23 10 4.30-6.10 Red Blood Count ATHE NA ([facility]) white blood count 7.4 10 4.0-10.0 White Blood Count JEFF ([facility]) hemoglobin 15.5 g/dL 13.5-17.5 Hemoglobin JEFF ([facility]) hematocrit 46.0 % 42.0-52.0 Hematocrit JEFF ([facility]) mean corpuscular hemoglobin 29.6 pg 27.0-33.0 Mean Cor puscular Hemoglobin JEFF ([facility]) mean corpuscular volume 88.0 fL 80.0-96.0 Mean Corpusc ular Volume JEFF ([facility]) mean corpuscular HGB conc 33.7 g/dL 32.0-36.5 Mean Corpu scular HGB Conc JEFF ([facility]) red cell distribution width 12.5 % 11.5-14.5 Red Cell Distribution Width [facility] ([facility]) platelet count, automated 186 10 150-450 Platelet C ount, Automated JE[facility] ([facility]) lymph % 23.0 % 24.0-44.0 Below low normal Lymph % [place] ( [facility]) neutrophils % 60.8 % 36.0-66.0 Neutrophils % [place] ( [facility]) mono % 7.6 % 0.0-5.0 Above high normal [place] % [place] ([facility]) eos % 5.8 % 0.0-3.0 Above high normal Eos % [place] ([facility]) immature granulocyte % 1.8 % 0-3.0 Immature Gran ulocyte % JEFF ([facility]) baso % 1.0 % 0.0-1.0 Baso % [place] ([facility]) nucleated red blood cell % 0.0 % 0-0 Nucleated Red Blood Cell % [place] ([facility]) neutrophils # 4.5 10 1.5-8.5 Neutrophils # JEFF ( [facility]) lymph # 1.7 10 1.5-5.0 Lymph # JEFF ([facility]) mono # 0.6 10 0.0-0.8 [place] # JEFF ([facility]) baso # 0.1 10 0.0-0.2 Baso # JEFF ([facility]) eos # 0.4 10 0.0-0.5 Eos # JEFF ([facility]) ID Date Data Source [id number] 08/09/2020 12:40:00 PM EDT [place] ([facility]) Name Value Range Interpretation Code Description Data Becky rce(s) Supporting Document(s) venous pH 7.320 units 7.330-7.430 Below low normal Venous pH JEFF ([facility]) venous partial pressure CO2 42.6 mmHg 38.0-50.0 Venous P artial Pressure CO2 [facility] ([facility]) venous partial pressure O2 62.5 mmHg 30.0-50.0 Above high nor mal Venous Partial Pressure O2 JE[facility] ([facility]) venous total CO2 22.8 mEq/L 24.0-28.0 Below low normal Venous Total CO2 [facility] ([facility]) venous HCO3 21.5 mEq/L 23.0-27.0 Below low normal Venous HCO3 [facility] ([facility]) venous O2 saturation 91.2 % 60.0-80.0 Above high normal Venous O 2 Saturation [place] ([facility]) venous base excess -2.0-2.0 Below low normal Venous Base Excess [place] ([facility]) venous standard HCO3 20.7 mEq/L Venous Standard HCO3 [facility] ([facility]) ID Date Data Source [id number] 08/09/2020 12:40:00 PM EDT [place] ([facility]) Name Value Range Interpretation Code Description Data Becky rce(s) Supporting Document(s) Hemoglobin A1c/Hemoglobin.total in Blood 8.6 % Hemoglobin a1C [place] ([facility]) estimated average glucose 200 mg/dL 60-110 Above high norm al Estimated Average Glucose [facility]) ID Date Data Source [id number] 08/09/2020 12:40:00 PM EDT [place] ([facility]) Name Value Range Interpretation Code Description Data Becky rce(s) Supporting Document(s) acetone/ketone 1.22 mg/dL <2.81 Acetone/ketone [facility]) ID Date Data Source [id number] 08/09/2020 12:40:00 PM EDT [place] ([facility]) Name Value Range Interpretation Code Description Data Becky rce(s) Supporting Document(s) glucose, fasting 210 mg/dL 70-100 Above high normal Glucose, Fas ting JEFF ([facility]) blood urea nitrogen 16 mg/dL 7-18 Blood Urea Nitro gen JEFF ([facility]) glomerular filtration rate > 60.0 >60 Glomerula r Filtration Rate JEFF ([facility]) creatinine for GFR 1.03 mg/dL 0.70-1.30 Creatinine for GF R JEFF ([facility]) sodium level 135 mEq/L 136-145 Below low normal Sodium Level ATHE NA ([facility]) potassium serum 4.0 mEq/L 3.5-5.1 Potassium Serum A[facility] NA ([facility]) chloride level 101 mEq/L 98-107 Chloride Level JEFF ([facility]) anion gap 6 mEq/L 8-16 Below low normal Anion Gap JE[facility] ( [facility]) carbon dioxide level 28 mEq/L 21-32 Carbon Dioxide Level [place] ([facility]) calcium level 9.7 mg/dL 8.5-10.1 Calcium Level [place] ( [facility]) ID Date Data Source [id number] 08/09/2020 12:40:00 PM EDT [place] ([facility]) Name Value Range Interpretation Code Description Data Becky rce(s) Supporting Document(s) ALT/SGPT 39 U/L 12-78 ALT/SGPT [facility] ([facility]) alkaline phosphatase 101 U/L 45-117 Alkaline Phosph atase [facility] ([facility]) AST/SGOT 24 U/L 7-37 AST/SGOT [facility] ([facility]) bilirubin,total 0.4 mg/dL 0.2-1.0 Bilirubin,total ATHE ([facility]) bilirubin,direct 0.1 mg/dL 0.0-0.2 Bilirubin,direct AT [place] ([facility]) albumin 3.9 gm/dL 3.2-5.2 Albumin JEFF ([facility]) total protein 7.6 gm/dL 6.4-8.2 Total Protein JEFF ( [facility]) albumin/globulin ratio Albumin/globu bianca Ratio [facility] ([facility]) ID Date Data Source [id number] 08/09/2020 12:40:00 PM EDT [place] ([facility]) Name Value Range Interpretation Code Description Data Becky rce(s) Supporting Document(s) hemoglobin 15.5 g/dL 13.5-17.5 Hemoglobin JEFF ([facility]) red blood count 5.23 10 4.30-6.10 Red Blood Count AT[facility] ([facility]) white blood count 7.4 10 4.0-10.0 White Blood Count JE[facility] ([facility]) mean corpuscular hemoglobin 29.6 pg 27.0-33.0 Mean Cor puscular Hemoglobin JEFF ([facility]) mean corpuscular volume 88.0 fL 80.0-96.0 Mean Corpusc ular Volume JEFF ([facility]) hematocrit 46.0 % 42.0-52.0 Hematocrit JE[facility] ([facility]) mean corpuscular HGB conc 33.7 g/dL 32.0-36.5 Mean Corpu scular HGB Conc [place] ([facility]) red cell distribution width 12.5 % 11.5-14.5 Red Cell Distribution Width [place] ([facility]) lymph % 23.0 % 24.0-44.0 Below low normal Lymph % [place] ( [facility]) neutrophils % 60.8 % 36.0-66.0 Neutrophils % [place] ( [facility]) platelet count, automated 186 10 150-450 Platelet C ount, Automated JE[facility] ([facility]) eos % 5.8 % 0.0-3.0 Above high normal Eos % [facility] ([facility]) baso % 1.0 % 0.0-1.0 Baso % [facility] ([facility]) mono % 7.6 % 0.0-5.0 Above high normal [place] % [facility] ([facility]) neutrophils # 4.5 10 1.5-8.5 Neutrophils # [facility] ( [facility]) nucleated red blood cell % 0.0 % 0-0 Nucleated Red Blood Cell % [facility] ([facility]) immature granulocyte % 1.8 % 0-3.0 Immature Gran ulocyte % [facility] ([facility]) eos # 0.4 10 0.0-0.5 Eos # JE[facility] ([facility]) lymph # 1.7 10 1.5-5.0 Lymph # [facility] ([facility]) mono # 0.6 10 0.0-0.8 [place] # [facility] ([facility]) baso # 0.1 10 0.0-0.2 Baso # JEFF ([facility]) ID Date Data Source [id number] 08/09/2020 12:40:00 PM EDT [place] ([facility]) Name Value Range Interpretation Code Description Data Becky rce(s) Supporting Document(s) venous pH 7.320 units 7.330-7.430 Below low normal Venous pH JEFF ([facility]) venous partial pressure CO2 42.6 mmHg 38.0-50.0 Venous P artial Pressure CO2 [facility] ([facility]) venous total CO2 22.8 mEq/L 24.0-28.0 Below low normal Venous Total CO2 [facility] ([facility]) venous HCO3 21.5 mEq/L 23.0-27.0 Below low normal Venous HCO3 [facility] ([facility]) venous partial pressure O2 62.5 mmHg 30.0-50.0 Above high nor mal Venous Partial Pressure O2 [facility] ([facility]) venous O2 saturation 91.2 % 60.0-80.0 Above high normal Venous O 2 Saturation [facility] ([facility]) venous standard HCO3 20.7 mEq/L Venous Standard HCO3 [facility] ([facility]) venous base excess -2.0-2.0 Below low normal Venous Base Excess [facility] ([facility]) ID Date Data Source [id number] 08/09/2020 12:40:00 PM EDT [place] ([facility]) Name Value Range Interpretation Code Description Data Becky rce(s) Supporting Document(s) Hemoglobin A1c/Hemoglobin.total in Blood 8.6 % Hemoglobin a1C [facility] ([facility]) estimated average glucose 200 mg/dL 60-110 Above high norm al Estimated Average Glucose [facility] ([facility]) ID Date Data Source [id number] 08/09/2020 12:40:00 PM EDT [place] ([facility]) Name Value Range Interpretation Code Description Data Becky rce(s) Supporting Document(s) acetone/ketone 1.22 mg/dL <2.81 Acetone/ketone [place] ([facility]) ID Date Data Source [id number] 08/09/2020 12:40:00 PM EDT [place] ([facility]) Name Value Range Interpretation Code Description Data Becky rce(s) Supporting Document(s) glucose, fasting 210 mg/dL 70-100 Above high normal Glucose, Fas ting JEFF ([facility]) glomerular filtration rate > 60.0 >60 Glomerula r Filtration Rate [facility] ([facility]) blood urea nitrogen 16 mg/dL 7-18 Blood Urea Nitro gen JEFF ([facility]) sodium level 135 mEq/L 136-145 Below low normal Sodium Level ATHE NA ([facility]) creatinine for GFR 1.03 mg/dL 0.70-1.30 Creatinine for GF R [facility] ([facility]) chloride level 101 mEq/L 98-107 Chloride Level [facility] ([facility]) carbon dioxide level 28 mEq/L 21-32 Carbon Dioxide Level [facility] ([facility]) potassium serum 4.0 mEq/L 3.5-5.1 Potassium Serum ATHE NA ([facility]) calcium level 9.7 mg/dL 8.5-10.1 Calcium Level JE[facility] ( [facility]) anion gap 6 mEq/L 8-16 Below low normal Anion Gap [place] ( [facility]) ID Date Data Source [id number] 08/09/2020 12:40:00 PM EDT [place] ([facility]) Name Value Range Interpretation Code Description Data Becky rce(s) Supporting Document(s) AST/SGOT 24 U/L 7-37 AST/SGOT [facility] ([facility]) ALT/SGPT 39 U/L 12-78 ALT/SGPT [facility] ([facility]) alkaline phosphatase 101 U/L 45-117 Alkaline Phosph atase JE[facility] ([facility]) bilirubin,total 0.4 mg/dL 0.2-1.0 Bilirubin,total ATHE NA ([facility]) total protein 7.6 gm/dL 6.4-8.2 Total Protein JEFF ( [facility]) bilirubin,direct 0.1 mg/dL 0.0-0.2 Bilirubin,direct AT [place] ([facility]) albumin 3.9 gm/dL 3.2-5.2 Albumin JE[facility] ([facility]) albumin/globulin ratio Albumin/globu bianca Ratio [facility] ([facility]) ID Date Data Source [id number] 08/09/2020 12:40:00 PM EDT [facility] ([facility]) Name Value Range Interpretation Code Description Data Becky rce(s) Supporting Document(s) red blood count 5.23 10 4.30-6.10 Red Blood Count AT[facility] ([facility]) white blood count 7.4 10 4.0-10.0 White Blood Count JE[facility] ([facility]) hemoglobin 15.5 g/dL 13.5-17.5 Hemoglobin JEFF ([facility]) mean corpuscular volume 88.0 fL 80.0-96.0 Mean Corpusc ular Volume JEFF ([facility]) hematocrit 46.0 % 42.0-52.0 Hematocrit JE[facility] ([facility]) red cell distribution width 12.5 % 11.5-14.5 Red Cell Distribution Width [facility] ([facility]) mean corpuscular HGB conc 33.7 g/dL 32.0-36.5 Mean Corpu scular HGB Conc JE[facility] ([facility]) mean corpuscular hemoglobin 29.6 pg 27.0-33.0 Mean Cor puscular Hemoglobin JE[facility] ([facility]) mono % 7.6 % 0.0-5.0 Above high normal [place] % [facility] ([facility]) neutrophils % 60.8 % 36.0-66.0 Neutrophils % [facility] ( [facility]) lymph % 23.0 % 24.0-44.0 Below low normal Lymph % [facility] ( [facility]) platelet count, automated 186 10 150-450 Platelet C ount, Automated [facility] ([facility]) eos % 5.8 % 0.0-3.0 Above high normal Eos % [facility] ([facility]) baso % 1.0 % 0.0-1.0 Baso % [facility] ([facility]) immature granulocyte % 1.8 % 0-3.0 Immature Gran ulocyte % [facility] ([facility]) neutrophils # 4.5 10 1.5-8.5 Neutrophils # [facility] ( [facility]) nucleated red blood cell % 0.0 % 0-0 Nucleated Red Blood Cell % [facility] ([facility]) lymph # 1.7 10 1.5-5.0 Lymph # [facility] ([facility]) baso # 0.1 10 0.0-0.2 Baso # [facility] ([facility]) mono # 0.6 10 0.0-0.8 [place] # [facility] ([facility]) eos # 0.4 10 0.0-0.5 Eos # [facility] ([facility]) ID Date Data Source [id number] 08/09/2020 12:40:00 PM EDT [place] ([facility]) Name Value Range Interpretation Code Description Data Becky rce(s) Supporting Document(s) venous pH 7.320 units 7.330-7.430 Below low normal Venous pH JEFF ([facility]) venous partial pressure CO2 42.6 mmHg 38.0-50.0 Venous P artial Pressure CO2 [facility] ([facility]) venous HCO3 21.5 mEq/L 23.0-27.0 Below low normal Venous HCO3 [place] ([facility]) venous total CO2 22.8 mEq/L 24.0-28.0 Below low normal Venous Total CO2 [place] ([facility]) venous partial pressure O2 62.5 mmHg 30.0-50.0 Above high nor mal Venous Partial Pressure O2 [facility] ([facility]) venous standard HCO3 20.7 mEq/L Venous Standard HCO3 [place] ([facility]) venous base excess -2.0-2.0 Below low normal Venous Base Excess [place] ([facility]) venous O2 saturation 91.2 % 60.0-80.0 Above high normal Venous O 2 Saturation [place] ([facility]) ID Date Data Source [id number] 08/09/2020 12:40:00 PM EDT [facility]) Name Value Range Interpretation Code Description Data Becky rce(s) Supporting Document(s) estimated average glucose 200 mg/dL 60-110 Above high norm al Estimated Average Glucose [facility]) Hemoglobin A1c/Hemoglobin.total in Blood 8.6 % Hemoglobin a1C [facility]) ID Date Data Source [id number] 08/09/2020 12:40:00 PM EDT [facility]) Name Value Range Interpretation Code Description Data Becky rce(s) Supporting Document(s) acetone/ketone 1.22 mg/dL <2.81 Acetone/ketone [facility]) ID Date Data Source [id number] 08/09/2020 12:40:00 PM EDT [facility]) Name Value Range Interpretation Code Description Data Becky rce(s) Supporting Document(s) creatinine for GFR 1.03 mg/dL 0.70-1.30 Creatinine for GF R [place] ([facility]) blood urea nitrogen 16 mg/dL 7-18 Blood Urea Nitro gen JFEF ([facility]) glomerular filtration rate > 60.0 >60 Glomerula r Filtration Rate [place] ([facility]) glucose, fasting 210 mg/dL 70-100 Above high normal Glucose, Fas ting [facility] ([facility]) sodium level 135 mEq/L 136-145 Below low normal Sodium Level ATHE NA ([facility]) carbon dioxide level 28 mEq/L 21-32 Carbon Dioxide Level [facility] ([facility]) potassium serum 4.0 mEq/L 3.5-5.1 Potassium Serum ATHE NA ([facility]) chloride level 101 mEq/L 98-107 Chloride Level [facility] ([facility]) anion gap 6 mEq/L 8-16 Below low normal Anion Gap [facility] ( [facility]) calcium level 9.7 mg/dL 8.5-10.1 Calcium Level [facility] ( [facility]) ID Date Data Source [id number] 08/09/2020 12:40:00 PM EDT [facility] ([facility]) Name Value Range Interpretation Code Description Data Becky rce(s) Supporting Document(s) ALT/SGPT 39 U/L 12-78 ALT/SGPT [facility] ([facility]) AST/SGOT 24 U/L 7-37 AST/SGOT [facility] ([facility]) bilirubin,direct 0.1 mg/dL 0.0-0.2 Bilirubin,direct AT [facility]) total protein 7.6 gm/dL 6.4-8.2 Total Protein JE[facility] ( [facility]) bilirubin,total 0.4 mg/dL 0.2-1.0 Bilirubin,total AT[facility] ([facility]) alkaline phosphatase 101 U/L 45-117 Alkaline Phosph atase [facility] ([facility]) albumin/globulin ratio Albumin/globu bianca Ratio [facility] ([facility]) albumin 3.9 gm/dL 3.2-5.2 Albumin [facility] ([facility]) ID Date Data Source [id number] 08/09/2020 12:40:00 PM EDT [facility] ([facility]) Name Value Range Interpretation Code Description Data Becky rce(s) Supporting Document(s) white blood count 7.4 10 4.0-10.0 White Blood Count [facility] ([facility]) hemoglobin 15.5 g/dL 13.5-17.5 Hemoglobin [facility] ([facility]) mean corpuscular volume 88.0 fL 80.0-96.0 Mean Corpusc ular Volume [facility] ([facility]) red blood count 5.23 10 4.30-6.10 Red Blood Count ATHE NA ([facility]) hematocrit 46.0 % 42.0-52.0 Hematocrit [facility] ([facility]) mean corpuscular HGB conc 33.7 g/dL 32.0-36.5 Mean Corpu scular HGB Conc [facility] ([facility]) mean corpuscular hemoglobin 29.6 pg 27.0-33.0 Mean Cor puscular Hemoglobin [facility] ([facility]) red cell distribution width 12.5 % 11.5-14.5 Red Cell Distribution Width [facility] ([facility]) mono % 7.6 % 0.0-5.0 Above high normal [place] % [facility] ([facility]) platelet count, automated 186 10 150-450 Platelet C ount, Automated JE[facility] ([facility]) neutrophils % 60.8 % 36.0-66.0 Neutrophils % [facility] ( [facility]) lymph % 23.0 % 24.0-44.0 Below low normal Lymph % JE[facility] ( [facility]) immature granulocyte % 1.8 % 0-3.0 Immature Gran ulocyte % [facility] ([facility]) baso % 1.0 % 0.0-1.0 Baso % [facility] ([facility]) eos % 5.8 % 0.0-3.0 Above high normal Eos % [facility] ([facility]) nucleated red blood cell % 0.0 % 0-0 Nucleated Red Blood Cell % [facility] ([facility]) eos # 0.4 10 0.0-0.5 Eos # [facility] ([facility]) lymph # 1.7 10 1.5-5.0 Lymph # [facility] ([facility]) neutrophils # 4.5 10 1.5-8.5 Neutrophils # JE[facility] ( [facility]) mono # 0.6 10 0.0-0.8 [place] # [facility] ([facility]) baso # 0.1 10 0.0-0.2 Baso # [facility] ([facility]) ID Date Data Source [id number] 08/09/2020 12:40:00 PM EDT [facility] ([facility]) Name Value Range Interpretation Code Description Data Bekcy rce(s) Supporting Document(s) venous partial pressure CO2 42.6 mmHg 38.0-50.0 Venous P artial Pressure CO2 [facility] ([facility]) venous pH 7.320 units 7.330-7.430 Below low normal Venous pH [place] ([facility]) venous total CO2 22.8 mEq/L 24.0-28.0 Below low normal Venous Total CO2 [facility] ([facility]) venous partial pressure O2 62.5 mmHg 30.0-50.0 Above high nor mal Venous Partial Pressure O2 [facility] ([facility]) venous HCO3 21.5 mEq/L 23.0-27.0 Below low normal Venous HCO3 [facility] ([facility]) venous standard HCO3 20.7 mEq/L Venous Standard HCO3 [facility] ([facility]) venous base excess -2.0-2.0 Below low normal Venous Base Excess [place] ([facility]) venous O2 saturation 91.2 % 60.0-80.0 Above high normal Venous O 2 Saturation [place] ([facility]) ID Date Data Source [id number] 08/09/2020 12:40:00 PM EDT [facility] ([facility]) Name Value Range Interpretation Code Description Data Becky rce(s) Supporting Document(s) acetone/ketone 1.22 mg/dL <2.81 Acetone/ketone [facility] ([facility]) ID Date Data Source [id number] 08/09/2020 12:40:00 PM EDT [facility] ([facility]) Name Value Range Interpretation Code Description Data Becky rce(s) Supporting Document(s) glucose, fasting 210 mg/dL 70-100 Above high normal Glucose, Fas ting JE[facility] ([facility]) blood urea nitrogen 16 mg/dL 7-18 Blood Urea Nitro gen [facility] ([facility]) glomerular filtration rate > 60.0 >60 Glomerula r Filtration Rate [facility] ([facility]) creatinine for GFR 1.03 mg/dL 0.70-1.30 Creatinine for GF R [facility]FEF ([facility]) chloride level 101 mEq/L 98-107 Chloride Level [facility] ([facility]) carbon dioxide level 28 mEq/L 21-32 Carbon Dioxide Level [facility] ([facility]) potassium serum 4.0 mEq/L 3.5-5.1 Potassium Serum ATHE NA ([facility]) sodium level 135 mEq/L 136-145 Below low normal Sodium Level [facility] ([facility]) anion gap 6 mEq/L 8-16 Below low normal Anion Gap [facility] ( [facility]) calcium level 9.7 mg/dL 8.5-10.1 Calcium Level [place] ( [facility]) ID Date Data Source [id number] 08/09/2020 12:40:00 PM EDT [place] ([facility]) Name Value Range Interpretation Code Description Data Becky rce(s) Supporting Document(s) AST/SGOT 24 U/L 7-37 AST/SGOT [facility] ([facility]) ALT/SGPT 39 U/L 12-78 ALT/SGPT [place] ([facility]) bilirubin,total 0.4 mg/dL 0.2-1.0 Bilirubin,total [facility] ([facility]) total protein 7.6 gm/dL 6.4-8.2 Total Protein [facility] ( [facility]) bilirubin,direct 0.1 mg/dL 0.0-0.2 Bilirubin,direct AT [facility] ([facility]) alkaline phosphatase 101 U/L 45-117 Alkaline Phosph atase [facility] ([facility]) albumin 3.9 gm/dL 3.2-5.2 Albumin [place] ([facility]) albumin/globulin ratio Albumin/globu bianca Ratio [facility] ([facility]) ID Date Data Source [id number] 08/09/2020 12:40:00 PM EDT [facility] ([facility]) Name Value Range Interpretation Code Description Data Becky rce(s) Supporting Document(s) white blood count 7.4 10 4.0-10.0 White Blood Count [facility] ([facility]) red blood count 5.23 10 4.30-6.10 Red Blood Count ATHE NA ([facility]) hemoglobin 15.5 g/dL 13.5-17.5 Hemoglobin [facility] ([facility]) mean corpuscular hemoglobin 29.6 pg 27.0-33.0 Mean Cor puscular Hemoglobin [facility] ([facility]) mean corpuscular volume 88.0 fL 80.0-96.0 Mean Corpusc ular Volume [facility] ([facility]) hematocrit 46.0 % 42.0-52.0 Hematocrit [facility] ([facility]) mean corpuscular HGB conc 33.7 g/dL 32.0-36.5 Mean Corpu scular HGB Conc [facility] ([facility]) platelet count, automated 186 10 150-450 Platelet C ount, Automated [facility] ([facility]) red cell distribution width 12.5 % 11.5-14.5 Red Cell Distribution Width [facility] ([facility]) neutrophils % 60.8 % 36.0-66.0 Neutrophils % [facility] ( [facility]) lymph % 23.0 % 24.0-44.0 Below low normal Lymph % [facility] ( [facility]) mono % 7.6 % 0.0-5.0 Above high normal [place] % [facility] ([facility]) eos % 5.8 % 0.0-3.0 Above high normal Eos % [facility] ([facility]) baso % 1.0 % 0.0-1.0 Baso % [facility] ([facility]) immature granulocyte % 1.8 % 0-3.0 Immature Gran ulocyte % [facility] ([facility]) nucleated red blood cell % 0.0 % 0-0 Nucleated Red Blood Cell % [facility] ([facility]) neutrophils # 4.5 10 1.5-8.5 Neutrophils # [facility] ( [facility]) mono # 0.6 10 0.0-0.8 [place] # [facility] ([facility]) lymph # 1.7 10 1.5-5.0 Lymph # [facility] ([facility]) eos # 0.4 10 0.0-0.5 Eos # [facility] ([facility]) baso # 0.1 10 0.0-0.2 Baso # [facility] ([facility]) ID Date Data Source [id number] 08/09/2020 12:40:00 PM EDT [facility] ([facility]) Name Value Range Interpretation Code Description Data Becky rce(s) Supporting Document(s) venous pH 7.320 units 7.330-7.430 Below low normal Venous pH [facility] ([facility]) venous partial pressure CO2 42.6 mmHg 38.0-50.0 Venous P artial Pressure CO2 [facility] ([facility]) venous partial pressure O2 62.5 mmHg 30.0-50.0 Above high nor mal Venous Partial Pressure O2 [facility] ([facility]) venous total CO2 22.8 mEq/L 24.0-28.0 Below low normal Venous Total CO2 [facility] ([facility]) venous HCO3 21.5 mEq/L 23.0-27.0 Below low normal Venous HCO3 [facility] ([facility]) venous O2 saturation 91.2 % 60.0-80.0 Above high normal Venous O 2 Saturation [facility] ([facility]) venous base excess -2.0-2.0 Below low normal Venous Base Excess [facility] ([facility]) venous standard HCO3 20.7 mEq/L Venous Standard HCO3 [facility] ([facility]) ID Date Data Source [id number] 08/09/2020 12:40:00 PM EDT [place] ([facility]) Name Value Range Interpretation Code Description Data Becky rce(s) Supporting Document(s) Hemoglobin A1c/Hemoglobin.total in Blood 8.6 % Hemoglobin a1C [facility] ([facility]) estimated average glucose 200 mg/dL 60-110 Above high norm al Estimated Average Glucose [place] ([facility]) ID Date Data Source [id number] 08/09/2020 12:40:00 PM EDT [facility] ([facility]) Name Value Range Interpretation Code Description Data Becky rce(s) Supporting Document(s) acetone/ketone 1.22 mg/dL <2.81 Acetone/ketone [facility] ([facility]) ID Date Data Source [id number] 08/09/2020 12:40:00 PM EDT [facility] ([facility]) Name Value Range Interpretation Code Description Data Becky rce(s) Supporting Document(s) blood urea nitrogen 16 mg/dL 7-18 Blood Urea Nitro gen [facility] ([facility]) glucose, fasting 210 mg/dL 70-100 Above high normal Glucose, Fas ting [facility] ([facility]) creatinine for GFR 1.03 mg/dL 0.70-1.30 Creatinine for GF R [place] ([facility]) potassium serum 4.0 mEq/L 3.5-5.1 Potassium Serum AT[facility] ([facility]) sodium level 135 mEq/L 136-145 Below low normal Sodium Level AT[facility] NA ([facility]) glomerular filtration rate > 60.0 >60 Glomerula r Filtration Rate [facility] ([facility]) calcium level 9.7 mg/dL 8.5-10.1 Calcium Level [facility] ( [facility]) anion gap 6 mEq/L 8-16 Below low normal Anion Gap [facility] ( [facility]) carbon dioxide level 28 mEq/L 21-32 Carbon Dioxide Level [facility] ([facility]) chloride level 101 mEq/L 98-107 Chloride Level [place] ([facility]) ID Date Data Source [id number] 08/09/2020 12:40:00 PM [facility] Name Value Range Interpretation Code Description Data Becky rce(s) Supporting Document(s) AST/SGOT 24 U/L 7-37 AST/SGOT [facility] ([facility]) bilirubin,direct 0.1 mg/dL 0.0-0.2 Bilirubin,direct AT [place] ([facility]) alkaline phosphatase 101 U/L 45-117 Alkaline Phosph atase [facility] ([facility]) ALT/SGPT 39 U/L 12-78 ALT/SGPT [facility] ([facility]) bilirubin,total 0.4 mg/dL 0.2-1.0 Bilirubin,total ATHE NA ([facility]) albumin 3.9 gm/dL 3.2-5.2 Albumin [facility] ([facility]) total protein 7.6 gm/dL 6.4-8.2 Total Protein [facility] ( [facility]) albumin/globulin ratio Albumin/globu bianca Ratio [facility] ([facility]) ID Date Data Source [id number] 08/09/2020 12:40:00 PM EDT [facility] ([facility]) Name Value Range Interpretation Code Description Data Becky rce(s) Supporting Document(s) white blood count 7.4 10 4.0-10.0 White Blood Count [facility] ([facility]) red blood count 5.23 10 4.30-6.10 Red Blood Count ATHE NA ([facility]) hematocrit 46.0 % 42.0-52.0 Hematocrit [facility] ([facility]) mean corpuscular volume 88.0 fL 80.0-96.0 Mean Corpusc ular Volume [facility] ([facility]) hemoglobin 15.5 g/dL 13.5-17.5 Hemoglobin [facility] ([facility]) mean corpuscular hemoglobin 29.6 pg 27.0-33.0 Mean Cor puscular Hemoglobin [facility] ([facility]) mean corpuscular HGB conc 33.7 g/dL 32.0-36.5 Mean Corpu scular HGB Conc [facility] ([facility]) red cell distribution width 12.5 % 11.5-14.5 Red Cell Distribution Width [facility] ([facility]) lymph % 23.0 % 24.0-44.0 Below low normal Lymph % [facility] ( [facility]) neutrophils % 60.8 % 36.0-66.0 Neutrophils % [facility] ( [facility]) platelet count, automated 186 10 150-450 Platelet C ount, Automated [facility] ([facility]) mono % 7.6 % 0.0-5.0 Above high normal [place] % [facility] ([facility]) nucleated red blood cell % 0.0 % 0-0 Nucleated Red Blood Cell % [facility] ([facility]) baso % 1.0 % 0.0-1.0 Baso % [place] ([facility]) immature granulocyte % 1.8 % 0-3.0 Immature Gran ulocyte % [place] ([facility]) eos % 5.8 % 0.0-3.0 Above high normal Eos % [place] ([facility]) lymph # 1.7 10 1.5-5.0 Lymph # [facility] ([facility]) neutrophils # 4.5 10 1.5-8.5 Neutrophils # [facility] ( [facility]) mono # 0.6 10 0.0-0.8 [place] # [facility] ([facility]) baso # 0.1 10 0.0-0.2 Baso # [facility] ([facility]) eos # 0.4 10 0.0-0.5 Eos # [facility] ([facility]) ID Date Data Source [id number] 08/09/2020 12:40:00 PM EDT [place] ([facility]) Name Value Range Interpretation Code Description Data Becky rce(s) Supporting Document(s) venous pH 7.320 units 7.330-7.430 Below low normal Venous pH [place] ([facility]) venous partial pressure O2 62.5 mmHg 30.0-50.0 Above high nor mal Venous Partial Pressure O2 [place] ([facility]) venous partial pressure CO2 42.6 mmHg 38.0-50.0 Venous P artial Pressure CO2 [place] ([facility]) venous base excess -2.0-2.0 Below low normal Venous Base Excess [facility] ([facility]) venous total CO2 22.8 mEq/L 24.0-28.0 Below low normal Venous Total CO2 [facility] ([facility]) venous HCO3 21.5 mEq/L 23.0-27.0 Below low normal Venous HCO3 [facility] ([facility]) venous O2 saturation 91.2 % 60.0-80.0 Above high normal Venous O 2 Saturation [facility] ([facility]) venous standard HCO3 20.7 mEq/L Venous Standard HCO3 [facility] ([facility]) ID Date Data Source [id number] 08/09/2020 12:40:00 PM EDT [place] ([facility]) Name Value Range Interpretation Code Description Data Becky rce(s) Supporting Document(s) Hemoglobin A1c/Hemoglobin.total in Blood 8.6 % Hemoglobin a1C [place] ([facility]) estimated average glucose 200 mg/dL 60-110 Above high norm al Estimated Average Glucose [place] ([facility]) ID Date Data Source [id number] 08/09/2020 12:40:00 PM EDT [place] ([facility]) Name Value Range Interpretation Code Description Data Becky rce(s) Supporting Document(s) acetone/ketone 1.22 mg/dL <2.81 Acetone/ketone [place] ([facility]) ID Date Data Source [id number] 08/09/2020 12:40:00 PM EDT [place] ([facility]) Name Value Range Interpretation Code Description Data Becky rce(s) Supporting Document(s) glucose, fasting 210 mg/dL 70-100 Above high normal Glucose, Fas ting [facility] ([facility]) blood urea nitrogen 16 mg/dL 7-18 Blood Urea Nitro gen [facility] ([facility]) sodium level 135 mEq/L 136-145 Below low normal Sodium Level [facility] NA ([facility]) glomerular filtration rate > 60.0 >60 Glomerula r Filtration Rate [facility] ([facility]) creatinine for GFR 1.03 mg/dL 0.70-1.30 Creatinine for GF R [facility] ([facility]) potassium serum 4.0 mEq/L 3.5-5.1 Potassium Serum [facility] ([facility]) chloride level 101 mEq/L 98-107 Chloride Level [facility] ([facility]) carbon dioxide level 28 mEq/L 21-32 Carbon Dioxide Level [facility] ([facility]) anion gap 6 mEq/L 8-16 Below low normal Anion Gap [facility] ( [facility]) calcium level 9.7 mg/dL 8.5-10.1 Calcium Level [facility] ( [facility]) ID Date Data Source [id number] 08/09/2020 12:40:00 PM EDT [facility] ([facility]) Name Value Range Interpretation Code Description Data Becky rce(s) Supporting Document(s) AST/SGOT 24 U/L 7-37 AST/SGOT [facility] ([facility]) bilirubin,total 0.4 mg/dL 0.2-1.0 Bilirubin,total ATHE NA ([facility]) alkaline phosphatase 101 U/L 45-117 Alkaline Phosph atase [facility] ([facility]) bilirubin,direct 0.1 mg/dL 0.0-0.2 Bilirubin,direct AT [place] ([facility]) ALT/SGPT 39 U/L 12-78 ALT/SGPT [facility] ([facility]) total protein 7.6 gm/dL 6.4-8.2 Total Protein [facility] ( [facility]) albumin 3.9 gm/dL 3.2-5.2 Albumin [facility] ([facility]) albumin/globulin ratio Albumin/globu bianca Ratio [facility] ([facility]) ID Date Data Source [id number] 08/09/2020 12:40:00 PM EDT [facility] ([facility]) Name Value Range Interpretation Code Description Data Becky rce(s) Supporting Document(s) red blood count 5.23 10 4.30-6.10 Red Blood Count ATHE NA ([facility]) white blood count 7.4 10 4.0-10.0 White Blood Count [facility] ([facility]) hemoglobin 15.5 g/dL 13.5-17.5 Hemoglobin [facility] ([facility]) mean corpuscular volume 88.0 fL 80.0-96.0 Mean Corpusc ular Volume [facility] ([facility]) mean corpuscular hemoglobin 29.6 pg 27.0-33.0 Mean Cor puscular Hemoglobin [facility] ([facility]) hematocrit 46.0 % 42.0-52.0 Hematocrit [facility] ([facility]) red cell distribution width 12.5 % 11.5-14.5 Red Cell Distribution Width [facility] ([facility]) platelet count, automated 186 10 150-450 Platelet C ount, Automated [facility] ([facility]) mean corpuscular HGB conc 33.7 g/dL 32.0-36.5 Mean Corpu scular HGB Conc [facility] ([facility]) mono % 7.6 % 0.0-5.0 Above high normal [place] % [facility] ([facility]) neutrophils % 60.8 % 36.0-66.0 Neutrophils % [facility] ( [facility]) lymph % 23.0 % 24.0-44.0 Below low normal Lymph % [facility] ( [facility]) eos % 5.8 % 0.0-3.0 Above high normal Eos % [facility] ([facility]) immature granulocyte % 1.8 % 0-3.0 Immature Gran ulocyte % [facility] ([facility]) baso % 1.0 % 0.0-1.0 Baso % [facility] ([facility]) nucleated red blood cell % 0.0 % 0-0 Nucleated Red Blood Cell % [facility] ([facility]) neutrophils # 4.5 10 1.5-8.5 Neutrophils # [facility] ( [facility]) lymph # 1.7 10 1.5-5.0 Lymph # [facility] ([facility]) mono # 0.6 10 0.0-0.8 [place] # [facility] ([facility]) eos # 0.4 10 0.0-0.5 Eos # [facility] ([facility]) baso # 0.1 10 0.0-0.2 Baso # [facility] ([facility]) ID Date Data Source [id number] 08/09/2020 12:40:00 PM EDT [facility] ([facility]) Name Value Range Interpretation Code Description Data Becky rce(s) Supporting Document(s) venous pH 7.320 units 7.330-7.430 Below low normal Venous pH [facility] ([facility]) venous partial pressure O2 62.5 mmHg 30.0-50.0 Above high nor mal Venous Partial Pressure O2 [facility] ([facility]) venous partial pressure CO2 42.6 mmHg 38.0-50.0 Venous P artial Pressure CO2 [facility] ([facility]) venous base excess -2.0-2.0 Below low normal Venous Base Excess [facility] ([facility]) venous HCO3 21.5 mEq/L 23.0-27.0 Below low normal Venous HCO3 [facility] ([facility]) venous total CO2 22.8 mEq/L 24.0-28.0 Below low normal Venous Total CO2 [facility] ([facility]) venous standard HCO3 20.7 mEq/L Venous Standard HCO3 [facility] ([facility]) venous O2 saturation 91.2 % 60.0-80.0 Above high normal Venous O 2 Saturation [facility] ([facility]) ID Date Data Source [id number] 08/09/2020 12:40:00 PM EDT [facility] ([facility]) Name Value Range Interpretation Code Description Data Becky rce(s) Supporting Document(s) Hemoglobin A1c/Hemoglobin.total in Blood 8.6 % Hemoglobin a1C [facility] ([facility]) estimated average glucose 200 mg/dL 60-110 Above high norm al Estimated Average Glucose [facility] ([facility]) ID Date Data Source [id number] 08/09/2020 12:40:00 PM EDT [facility] ([facility]) Name Value Range Interpretation Code Description Data Becky rce(s) Supporting Document(s) acetone/ketone 1.22 mg/dL <2.81 Acetone/ketone [facility] ([facility]) ID Date Data Source [id number] 08/09/2020 12:40:00 PM EDT [facility] ([facility]) Name Value Range Interpretation Code Description Data Becky rce(s) Supporting Document(s) glucose, fasting 210 mg/dL 70-100 Above high normal Glucose, Fas ting [facility] ([facility]) sodium level 135 mEq/L 136-145 Below low normal Sodium Level AT[facility] NA ([facility]) glomerular filtration rate > 60.0 >60 Glomerula r Filtration Rate [facility] ([facility]) creatinine for GFR 1.03 mg/dL 0.70-1.30 Creatinine for GF R JEFF ([facility]) blood urea nitrogen 16 mg/dL 7-18 Blood Urea Nitro gen JEFF ([facility]) anion gap 6 mEq/L 8-16 Below low normal Anion Gap JEFF ( [facility]) chloride level 101 mEq/L 98-107 Chloride Level JEFF ([facility]) carbon dioxide level 28 mEq/L 21-32 Carbon Dioxide Level [place] ([facility]) potassium serum 4.0 mEq/L 3.5-5.1 Potassium Serum ATHE NA ([facility]) calcium level 9.7 mg/dL 8.5-10.1 Calcium Level JEFF ( [facility]) ID Date Data Source [id number] 08/09/2020 12:40:00 PM EDT JEFF ([facility]) Name Value Range Interpretation Code Description Data Becky rce(s) Supporting Document(s) AST/SGOT 24 U/L 7-37 AST/SGOT JEFF ([facility]) ALT/SGPT 39 U/L 12-78 ALT/SGPT JEFF ([facility]) alkaline phosphatase 101 U/L 45-117 Alkaline Phosph atase EJFF ([facility]) bilirubin,total 0.4 mg/dL 0.2-1.0 Bilirubin,total ATHE NA ([facility]) total protein 7.6 gm/dL 6.4-8.2 Total Protein JEFF ( [facility]) albumin/globulin ratio Albumin/globu bianca Ratio JEFF ([facility]) albumin 3.9 gm/dL 3.2-5.2 Albumin JEFF ([facility]) bilirubin,direct 0.1 mg/dL 0.0-0.2 Bilirubin,direct AT [facility] ([facility]) ID Date Data Source [id number] 08/09/2020 12:40:00 PM EDT [place] ([facility]) Name Value Range Interpretation Code Description Data Becky rce(s) Supporting Document(s) red blood count 5.23 10 4.30-6.10 Red Blood Count ATHE ([facility]) white blood count 7.4 10 4.0-10.0 White Blood Count JEFF ([facility]) mean corpuscular hemoglobin 29.6 pg 27.0-33.0 Mean Cor puscular Hemoglobin JEFF ([facility]) hemoglobin 15.5 g/dL 13.5-17.5 Hemoglobin JEFF ([facility]) hematocrit 46.0 % 42.0-52.0 Hematocrit JEFF ([facility]) mean corpuscular volume 88.0 fL 80.0-96.0 Mean Corpusc ular Volume JEFF ([facility]) red cell distribution width 12.5 % 11.5-14.5 Red Cell Distribution Width JEFF ([facility]) mean corpuscular HGB conc 33.7 g/dL 32.0-36.5 Mean Corpu scular HGB Conc JEFF ([facility]) platelet count, automated 186 10 150-450 Platelet C ount, Automated JEFF ([facility]) neutrophils % 60.8 % 36.0-66.0 Neutrophils % JEFF ( [facility]) mono % 7.6 % 0.0-5.0 Above high normal [place] % JEFF ([facility]) lymph % 23.0 % 24.0-44.0 Below low normal Lymph % JEFF ( [facility]) nucleated red blood cell % 0.0 % 0-0 Nucleated Red Blood Cell % JEFF ([facility]) eos % 5.8 % 0.0-3.0 Above high normal Eos % JEFF ([facility]) immature granulocyte % 1.8 % 0-3.0 Immature Gran ulocyte % JEFF ([facility]) baso % 1.0 % 0.0-1.0 Baso % JEFF ([facility]) neutrophils # 4.5 10 1.5-8.5 Neutrophils # JEFF ( [facility]) mono # 0.6 10 0.0-0.8 [place] # JEFF ([facility]) eos # 0.4 10 0.0-0.5 Eos # JEFF ([facility]) lymph # 1.7 10 1.5-5.0 Lymph # JEFF ([facility]) baso # 0.1 10 0.0-0.2 Baso # JEFF ([facility]) ID Date Data Source [id number] 08/09/2020 12:40:00 PM EDT [place] ([facility]) Name Value Range Interpretation Code Description Data Becky rce(s) Supporting Document(s) venous pH 7.320 units 7.330-7.430 Below low normal Venous pH JEFF ([facility]) venous partial pressure O2 62.5 mmHg 30.0-50.0 Above high nor mal Venous Partial Pressure O2 JEFF ([facility]) venous partial pressure CO2 42.6 mmHg 38.0-50.0 Venous P artial Pressure CO2 [place] ([facility]) venous base excess -2.0-2.0 Below low normal Venous Base Excess [place] ([facility]) venous total CO2 22.8 mEq/L 24.0-28.0 Below low normal Venous Total CO2 JEFF ([facility]) venous standard HCO3 20.7 mEq/L Venous Standard HCO3 JEFF ([facility]) venous HCO3 21.5 mEq/L 23.0-27.0 Below low normal Venous HCO3 [place] ([facility]) venous O2 saturation 91.2 % 60.0-80.0 Above high normal Venous O 2 Saturation [place] ([facility]) ID Date Data Source [id number] 08/09/2020 12:40:00 PM EDT [facility]) Name Value Range Interpretation Code Description Data Becky rce(s) Supporting Document(s) Hemoglobin A1c/Hemoglobin.total in Blood 8.6 % Hemoglobin a1C [place] ([facility]) estimated average glucose 200 mg/dL 60-110 Above high norm al Estimated Average Glucose [facility]) ID Date Data Source [id number] 08/09/2020 12:40:00 PM EDT [facility]) Name Value Range Interpretation Code Description Data Becky rce(s) Supporting Document(s) acetone/ketone 1.22 mg/dL <2.81 Acetone/ketone [place] ([facility]) ID Date Data Source [id number] 08/09/2020 12:40:00 PM EDT [facility]) Name Value Range Interpretation Code Description Data Becky rce(s) Supporting Document(s) glucose, fasting 210 mg/dL 70-100 Above high normal Glucose, Fas ting JEFF ([facility]) glomerular filtration rate > 60.0 >60 Glomerula r Filtration Rate JEFF ([facility]) blood urea nitrogen 16 mg/dL 7-18 Blood Urea Nitro gen JEFF ([facility]) creatinine for GFR 1.03 mg/dL 0.70-1.30 Creatinine for GF R JEFF ([facility]) carbon dioxide level 28 mEq/L 21-32 Carbon Dioxide Level JEFF ([facility]) sodium level 135 mEq/L 136-145 Below low normal Sodium Level ATHE NA ([facility]) chloride level 101 mEq/L 98-107 Chloride Level [place] ([facility]) potassium serum 4.0 mEq/L 3.5-5.1 Potassium Serum ATHE NA ([facility]) anion gap 6 mEq/L 8-16 Below low normal Anion Gap JEFF ( [facility]) calcium level 9.7 mg/dL 8.5-10.1 Calcium Level JEFF ( [facility]) ID Date Data Source [id number] 08/09/2020 12:40:00 PM EDT JEFF ([facility]) Name Value Range Interpretation Code Description Data Becky rce(s) Supporting Document(s) AST/SGOT 24 U/L 7-37 AST/SGOT JE[facility] ([facility]) ALT/SGPT 39 U/L 12-78 ALT/SGPT JEFF ([facility]) bilirubin,direct 0.1 mg/dL 0.0-0.2 Bilirubin,direct AT [place] ([facility]) total protein 7.6 gm/dL 6.4-8.2 Total Protein JEFF ( [facility]) alkaline phosphatase 101 U/L 45-117 Alkaline Phosph atase JEFF ([facility]) bilirubin,total 0.4 mg/dL 0.2-1.0 Bilirubin,total ATHE ([facility]) albumin 3.9 gm/dL 3.2-5.2 Albumin JEFF ([facility]) albumin/globulin ratio Albumin/globu bianca Ratio JEFF ([facility]) ID Date Data Source [id number] 08/09/2020 12:40:00 PM EDT JEFF ([facility]) Name Value Range Interpretation Code Description Data Becky rce(s) Supporting Document(s) red blood count 5.23 10 4.30-6.10 Red Blood Count ATHE NA ([facility]) hemoglobin 15.5 g/dL 13.5-17.5 Hemoglobin JEFF ([facility]) white blood count 7.4 10 4.0-10.0 White Blood Count JEFF ([facility]) mean corpuscular hemoglobin 29.6 pg 27.0-33.0 Mean Cor puscular Hemoglobin JEFF ([facility]) hematocrit 46.0 % 42.0-52.0 Hematocrit JEFF ([facility]) mean corpuscular volume 88.0 fL 80.0-96.0 Mean Corpusc ular Volume JEFF ([facility]) red cell distribution width 12.5 % 11.5-14.5 Red Cell Distribution Width JEFF ([facility]) mean corpuscular HGB conc 33.7 g/dL 32.0-36.5 Mean Corpu scular HGB Conc JEFF ([facility]) platelet count, automated 186 10 150-450 Platelet C ount, Automated JEFF ([facility]) neutrophils % 60.8 % 36.0-66.0 Neutrophils % JEFF ( [facility]) mono % 7.6 % 0.0-5.0 Above high normal [place] % JEFF ([facility]) eos % 5.8 % 0.0-3.0 Above high normal Eos % JEFF ([facility]) lymph % 23.0 % 24.0-44.0 Below low normal Lymph % JEFF ( [facility]) immature granulocyte % 1.8 % 0-3.0 Immature Gran ulocyte % JEFF ([facility]) neutrophils # 4.5 10 1.5-8.5 Neutrophils # JEFF ( [facility]) nucleated red blood cell % 0.0 % 0-0 Nucleated Red Blood Cell % JEFF ([facility]) baso % 1.0 % 0.0-1.0 Baso % JEFF ([facility]) mono # 0.6 10 0.0-0.8 [place] # JEFF ([facility]) baso # 0.1 10 0.0-0.2 Baso # JEFF ([facility]) eos # 0.4 10 0.0-0.5 Eos # JEFF ([facility]) lymph # 1.7 10 1.5-5.0 Lymph # JEFF ([facility]) ID Date Data Source [id number] 08/09/2020 12:40:00 PM EDT JEFF ([facility]) Name Value Range Interpretation Code Description Data Becky rce(s) Supporting Document(s) venous pH 7.320 units 7.330-7.430 Below low normal Venous pH JEFF ([facility]) venous partial pressure CO2 42.6 mmHg 38.0-50.0 Venous P artial Pressure CO2 JEFF ([facility]) venous HCO3 21.5 mEq/L 23.0-27.0 Below low normal Venous HCO3 JEFF ([facility]) venous partial pressure O2 62.5 mmHg 30.0-50.0 Above high nor mal Venous Partial Pressure O2 JEFF ([facility]) venous total CO2 22.8 mEq/L 24.0-28.0 Below low normal Venous Total CO2 [place] ([facility]) venous standard HCO3 20.7 mEq/L Venous Standard HCO3 JEFF ([facility]) venous base excess -2.0-2.0 Below low normal Venous Base Excess JEFF ([facility]) venous O2 saturation 91.2 % 60.0-80.0 Above high normal Venous O 2 Saturation [place] ([facility]) ID Date Data Source [id number] 08/09/2020 12:40:00 PM EDT JEFF ([facility]) Name Value Range Interpretation Code Description Data Becky rce(s) Supporting Document(s) Hemoglobin A1c/Hemoglobin.total in Blood 8.6 % Hemoglobin a1C JEFF ([facility]) estimated average glucose 200 mg/dL 60-110 Above high norm al Estimated Average Glucose JEFF ([facility]) ID Date Data Source [id number] 08/09/2020 12:40:00 PM EDT JEFF ([facility]) Name Value Range Interpretation Code Description Data Becky rce(s) Supporting Document(s) acetone/ketone 1.22 mg/dL <2.81 Acetone/ketone JEFF ([facility]) ID Date Data Source [id number] 08/09/2020 12:40:00 PM EDT JEFF ([facility]) Name Value Range Interpretation Code Description Data Becky rce(s) Supporting Document(s) glucose, fasting 210 mg/dL 70-100 Above high normal Glucose, Fas ting JEFF ([facility]) sodium level 135 mEq/L 136-145 Below low normal Sodium Level ATHE NA ([facility]) creatinine for GFR 1.03 mg/dL 0.70-1.30 Creatinine for GF R JEFF ([facility]) blood urea nitrogen 16 mg/dL 7-18 Blood Urea Nitro gen JEFF ([facility]) glomerular filtration rate > 60.0 >60 Glomerula r Filtration Rate JEFF ([facility]) calcium level 9.7 mg/dL 8.5-10.1 Calcium Level JEFF ( [facility]) carbon dioxide level 28 mEq/L 21-32 Carbon Dioxide Level JEFF ([facility]) anion gap 6 mEq/L 8-16 Below low normal Anion Gap JEFF ( [facility]) potassium serum 4.0 mEq/L 3.5-5.1 Potassium Serum ATHE ([facility]) chloride level 101 mEq/L 98-107 Chloride Level JEFF ([facility]) ID Date Data Source [id number] 08/09/2020 12:40:00 PM EDT JEFF ([facility]) Name Value Range Interpretation Code Description Data Becky rce(s) Supporting Document(s) alkaline phosphatase 101 U/L 45-117 Alkaline Phosph atase JEFF ([facility]) ALT/SGPT 39 U/L 12-78 ALT/SGPT JEFF ([facility]) bilirubin,total 0.4 mg/dL 0.2-1.0 Bilirubin,total ATHE NA ([facility]) AST/SGOT 24 U/L 7-37 AST/SGOT JEFF ([facility]) albumin 3.9 gm/dL 3.2-5.2 Albumin JEFF ([facility]) albumin/globulin ratio Albumin/globu bianca Ratio JEFF ([facility]) total protein 7.6 gm/dL 6.4-8.2 Total Protein JEFF ( [facility]) bilirubin,direct 0.1 mg/dL 0.0-0.2 Bilirubin,direct AT [place] ([facility]) ID Date Data Source [id number] 08/09/2020 12:40:00 PM EDT JEFF ([facility]) Name Value Range Interpretation Code Description Data Becky rce(s) Supporting Document(s) red blood count 5.23 10 4.30-6.10 Red Blood Count ATHE NA ([facility]) white blood count 7.4 10 4.0-10.0 White Blood Count JEFF ([facility]) mean corpuscular volume 88.0 fL 80.0-96.0 Mean Corpusc ular Volume JEFF ([facility]) hematocrit 46.0 % 42.0-52.0 Hematocrit JEFF ([facility]) hemoglobin 15.5 g/dL 13.5-17.5 Hemoglobin JEFF ([facility]) mean corpuscular HGB conc 33.7 g/dL 32.0-36.5 Mean Corpu scular HGB Conc JEFF ([facility]) platelet count, automated 186 10 150-450 Platelet C ount, Automated JEFF ([facility]) mean corpuscular hemoglobin 29.6 pg 27.0-33.0 Mean Cor puscular Hemoglobin JEFF ([facility]) red cell distribution width 12.5 % 11.5-14.5 Red Cell Distribution Width JE[facility] ([facility]) mono % 7.6 % 0.0-5.0 Above high normal [place] % JEFF ([facility]) eos % 5.8 % 0.0-3.0 Above high normal Eos % JEFF ([facility]) neutrophils % 60.8 % 36.0-66.0 Neutrophils % JEFF ( [facility]) lymph % 23.0 % 24.0-44.0 Below low normal Lymph % JEFF ( [facility]) nucleated red blood cell % 0.0 % 0-0 Nucleated Red Blood Cell % JEFF ([facility]) immature granulocyte % 1.8 % 0-3.0 Immature Gran ulocyte % JEFF ([facility]) baso % 1.0 % 0.0-1.0 Baso % JEFF ([facility]) mono # 0.6 10 0.0-0.8 [place] # JEFF ([facility]) eos # 0.4 10 0.0-0.5 Eos # JEFF ([facility]) neutrophils # 4.5 10 1.5-8.5 Neutrophils # JEFF ( [facility]) lymph # 1.7 10 1.5-5.0 Lymph # JEFF ([facility]) baso # 0.1 10 0.0-0.2 Baso # JEFF ([facility]) ID Date Data Source [id number] 08/09/2020 12:40:00 PM EDT [place] ([facility]) Name Value Range Interpretation Code Description Data Becky rce(s) Supporting Document(s) venous partial pressure CO2 42.6 mmHg 38.0-50.0 Venous P artial Pressure CO2 JEFF ([facility]) venous pH 7.320 units 7.330-7.430 Below low normal Venous pH JEFF ([facility]) venous total CO2 22.8 mEq/L 24.0-28.0 Below low normal Venous Total CO2 JE[facility] ([facility]) venous base excess -2.0-2.0 Below low normal Venous Base Excess JE[facility] ([facility]) venous partial pressure O2 62.5 mmHg 30.0-50.0 Above high nor mal Venous Partial Pressure O2 JEFF ([facility]) venous HCO3 21.5 mEq/L 23.0-27.0 Below low normal Venous HCO3 JE[facility] ([facility]) venous standard HCO3 20.7 mEq/L Venous Standard HCO3 JEFF ([facility]) venous O2 saturation 91.2 % 60.0-80.0 Above high normal Venous O 2 Saturation [place] ([facility]) ID Date Data Source [id number] 08/09/2020 12:40:00 PM EDT [place] ([facility]) Name Value Range Interpretation Code Description Data Becky rce(s) Supporting Document(s) estimated average glucose 200 mg/dL 60-110 Above high norm al Estimated Average Glucose JEFF ([facility]) Hemoglobin A1c/Hemoglobin.total in Blood 8.6 % Hemoglobin a1C [place] ([facility]) ID Date Data Source [id number] 08/09/2020 12:40:00 PM EDT JEFF ([facility]) Name Value Range Interpretation Code Description Data Becky rce(s) Supporting Document(s) acetone/ketone 1.22 mg/dL <2.81 Acetone/ketone [place] ([facility]) ID Date Data Source [id number] 08/09/2020 12:40:00 PM EDT [place] ([facility]) Name Value Range Interpretation Code Description Data Becky rce(s) Supporting Document(s) glucose, fasting 210 mg/dL 70-100 Above high normal Glucose, Fas ting JEFF ([facility]) glomerular filtration rate > 60.0 >60 Glomerula r Filtration Rate JEFF ([facility]) sodium level 135 mEq/L 136-145 Below low normal Sodium Level ATHE ([facility]) blood urea nitrogen 16 mg/dL 7-18 Blood Urea Nitro gen JEFF ([facility]) creatinine for GFR 1.03 mg/dL 0.70-1.30 Creatinine for GF R JEFF ([facility]) potassium serum 4.0 mEq/L 3.5-5.1 Potassium Serum ATHE NA ([facility]) calcium level 9.7 mg/dL 8.5-10.1 Calcium Level [place] ( [facility]) anion gap 6 mEq/L 8-16 Below low normal Anion Gap JEFF ( [facility]) chloride level 101 mEq/L 98-107 Chloride Level JEFF ([facility]) carbon dioxide level 28 mEq/L 21-32 Carbon Dioxide Level [place] ([facility]) ID Date Data Source [id number] 08/09/2020 12:40:00 PM EDT JEFF ([facility]) Name Value Range Interpretation Code Description Data Becky rce(s) Supporting Document(s) AST/SGOT 24 U/L 7-37 AST/SGOT [facility] ([facility]) ALT/SGPT 39 U/L 12-78 ALT/SGPT JE[facility] ([facility]) alkaline phosphatase 101 U/L 45-117 Alkaline Phosph atase JEFF ([facility]) albumin 3.9 gm/dL 3.2-5.2 Albumin JEFF ([facility]) bilirubin,direct 0.1 mg/dL 0.0-0.2 Bilirubin,direct AT [facility] ([facility]) total protein 7.6 gm/dL 6.4-8.2 Total Protein JEFF ( [facility]) bilirubin,total 0.4 mg/dL 0.2-1.0 Bilirubin,total ATHE ([facility]) albumin/globulin ratio Albumin/globu bianca Ratio JEFF ([facility]) ID Date Data Source [id number] 08/09/2020 12:40:00 PM EDT JEFF ([facility]) Name Value Range Interpretation Code Description Data Becky rce(s) Supporting Document(s) red blood count 5.23 10 4.30-6.10 Red Blood Count ATHE NA ([facility]) hemoglobin 15.5 g/dL 13.5-17.5 Hemoglobin JEFF ([facility]) white blood count 7.4 10 4.0-10.0 White Blood Count JEFF ([facility]) mean corpuscular HGB conc 33.7 g/dL 32.0-36.5 Mean Corpu scular HGB Conc JEFF ([facility]) hematocrit 46.0 % 42.0-52.0 Hematocrit JEFF ([facility]) mean corpuscular hemoglobin 29.6 pg 27.0-33.0 Mean Cor puscular Hemoglobin JEFF ([facility]) mean corpuscular volume 88.0 fL 80.0-96.0 Mean Corpusc ular Volume JEFF ([facility]) neutrophils % 60.8 % 36.0-66.0 Neutrophils % JEFF ( [facility]) platelet count, automated 186 10 150-450 Platelet C ount, Automated JEFF ([facility]) red cell distribution width 12.5 % 11.5-14.5 Red Cell Distribution Width JEFF ([facility]) mono % 7.6 % 0.0-5.0 Above high normal [place] % JEFF ([facility]) eos % 5.8 % 0.0-3.0 Above high normal Eos % JEFF ([facility]) lymph % 23.0 % 24.0-44.0 Below low normal Lymph % JEFF ( [facility]) baso % 1.0 % 0.0-1.0 Baso % JEFF ([facility]) lymph # 1.7 10 1.5-5.0 Lymph # [place] ([facility]) neutrophils # 4.5 10 1.5-8.5 Neutrophils # [place] ( [facility]) nucleated red blood cell % 0.0 % 0-0 Nucleated Red Blood Cell % JEFF ([facility]) immature granulocyte % 1.8 % 0-3.0 Immature Gran ulocyte % [place] ([facility]) baso # 0.1 10 0.0-0.2 Baso # JEFF ([facility]) eos # 0.4 10 0.0-0.5 Eos # JEFF ([facility]) mono # 0.6 10 0.0-0.8 [place] # JEFF ([facility]) ID Date Data Source [id number] 08/09/2020 12:40:00 PM EDT [place] ([facility]) Name Value Range Interpretation Code Description Data Becky rce(s) Supporting Document(s) venous pH 7.320 units 7.330-7.430 Below low normal Venous pH JEFF ([facility]) venous partial pressure O2 62.5 mmHg 30.0-50.0 Above high nor mal Venous Partial Pressure O2 JE[facility] ([facility]) venous partial pressure CO2 42.6 mmHg 38.0-50.0 Venous P artial Pressure CO2 [place] ([facility]) venous base excess -2.0-2.0 Below low normal Venous Base Excess [place] ([facility]) venous HCO3 21.5 mEq/L 23.0-27.0 Below low normal Venous HCO3 [place] ([facility]) venous total CO2 22.8 mEq/L 24.0-28.0 Below low normal Venous Total CO2 [place] ([facility]) venous O2 saturation 91.2 % 60.0-80.0 Above high normal Venous O 2 Saturation [place] ([facility]) venous standard HCO3 20.7 mEq/L Venous Standard HCO3 [place] ([facility]) ID Date Data Source [id number] 08/09/2020 12:40:00 PM EDT [place] ([facility]) Name Value Range Interpretation Code Description Data Becky rce(s) Supporting Document(s) Hemoglobin A1c/Hemoglobin.total in Blood 8.6 % Hemoglobin a1C [place] ([facility]) estimated average glucose 200 mg/dL 60-110 Above high norm al Estimated Average Glucose [place] ([facility]) ID Date Data Source [id number] 08/09/2020 12:40:00 PM EDT [place] ([facility]) Name Value Range Interpretation Code Description Data Becky rce(s) Supporting Document(s) acetone/ketone 1.22 mg/dL <2.81 Acetone/ketone [place] ([facility]) ID Date Data Source [id number] 08/09/2020 12:40:00 PM EDT [facility]) Name Value Range Interpretation Code Description Data Becky rce(s) Supporting Document(s) creatinine for GFR 1.03 mg/dL 0.70-1.30 Creatinine for GF R [place] ([facility]) glucose, fasting 210 mg/dL 70-100 Above high normal Glucose, Fas ting [place] ([facility]) blood urea nitrogen 16 mg/dL 7-18 Blood Urea Nitro gen JEFF ([facility]) sodium level 135 mEq/L 136-145 Below low normal Sodium Level ATHE NA ([facility]) glomerular filtration rate > 60.0 >60 Glomerula r Filtration Rate JEFF ([facility]) chloride level 101 mEq/L 98-107 Chloride Level JEFF ([facility]) potassium serum 4.0 mEq/L 3.5-5.1 Potassium Serum ATHE NA ([facility]) anion gap 6 mEq/L 8-16 Below low normal Anion Gap JEFF ( [facility]) carbon dioxide level 28 mEq/L 21-32 Carbon Dioxide Level JEFF ([facility]) calcium level 9.7 mg/dL 8.5-10.1 Calcium Level JEFF ( [facility]) ID Date Data Source [id number] 08/09/2020 12:40:00 PM EDT JEFF ([facility]) Name Value Range Interpretation Code Description Data Becky rce(s) Supporting Document(s) AST/SGOT 24 U/L 7-37 AST/SGOT [facility] ([facility]) ALT/SGPT 39 U/L 12-78 ALT/SGPT [facility] ([facility]) bilirubin,direct 0.1 mg/dL 0.0-0.2 Bilirubin,direct AT [place] ([facility]) alkaline phosphatase 101 U/L 45-117 Alkaline Phosph atase JE[facility] ([facility]) total protein 7.6 gm/dL 6.4-8.2 Total Protein JEFF ( [facility]) bilirubin,total 0.4 mg/dL 0.2-1.0 Bilirubin,total AT[facility] ([facility]) albumin/globulin ratio Albumin/globu bianca Ratio JE[facility] ([facility]) albumin 3.9 gm/dL 3.2-5.2 Albumin [place] ([facility]) ID Date Data Source [id number] 08/09/2020 12:40:00 PM EDT JEFF ([facility]) Name Value Range Interpretation Code Description Data Becky rce(s) Supporting Document(s) white blood count 7.4 10 4.0-10.0 White Blood Count JEFF ([facility]) hematocrit 46.0 % 42.0-52.0 Hematocrit JE[facility] ([facility]) red blood count 5.23 10 4.30-6.10 Red Blood Count ATHE NA ([facility]) hemoglobin 15.5 g/dL 13.5-17.5 Hemoglobin JE[facility] ([facility]) mean corpuscular hemoglobin 29.6 pg 27.0-33.0 Mean Cor puscular Hemoglobin JE[facility] ([facility]) mean corpuscular volume 88.0 fL 80.0-96.0 Mean Corpusc ular Volume JE[facility] ([facility]) mean corpuscular HGB conc 33.7 g/dL 32.0-36.5 Mean Corpu scular HGB Conc JE[facility] ([facility]) red cell distribution width 12.5 % 11.5-14.5 Red Cell Distribution Width [facility] ([facility]) platelet count, automated 186 10 150-450 Platelet C ount, Automated JE[facility] ([facility]) neutrophils % 60.8 % 36.0-66.0 Neutrophils % [place] ( [facility]) mono % 7.6 % 0.0-5.0 Above high normal [place] % [place] ([facility]) baso % 1.0 % 0.0-1.0 Baso % [place] ([facility]) eos % 5.8 % 0.0-3.0 Above high normal Eos % [facility] ([facility]) lymph % 23.0 % 24.0-44.0 Below low normal Lymph % JE[facility] ( [facility]) immature granulocyte % 1.8 % 0-3.0 Immature Gran ulocyte % JE[facility] ([facility]) neutrophils # 4.5 10 1.5-8.5 Neutrophils # [place] ( [facility]) nucleated red blood cell % 0.0 % 0-0 Nucleated Red Blood Cell % JE[facility] ([facility]) lymph # 1.7 10 1.5-5.0 Lymph # [facility] ([facility]) mono # 0.6 10 0.0-0.8 [place] # [facility] ([facility]) eos # 0.4 10 0.0-0.5 Eos # [facility] ([facility]) baso # 0.1 10 0.0-0.2 Baso # [facility] ([facility]) ID Date Data Source [id number] 08/09/2020 12:40:00 PM EDT JEFF ([facility]) Name Value Range Interpretation Code Description Data Becky rce(s) Supporting Document(s) venous pH 7.320 units 7.330-7.430 Below low normal Venous pH JE[facility] ([facility]) venous partial pressure O2 62.5 mmHg 30.0-50.0 Above high nor mal Venous Partial Pressure O2 [place] ([facility]) venous partial pressure CO2 42.6 mmHg 38.0-50.0 Venous P artial Pressure CO2 [facility] ([facility]) venous total CO2 22.8 mEq/L 24.0-28.0 Below low normal Venous Total CO2 [facility] ([facility]) venous base excess -2.0-2.0 Below low normal Venous Base Excess [facility] ([facility]) venous HCO3 21.5 mEq/L 23.0-27.0 Below low normal Venous HCO3 [facility] ([facility]) venous O2 saturation 91.2 % 60.0-80.0 Above high normal Venous O 2 Saturation [facility] ([facility]) venous standard HCO3 20.7 mEq/L Venous Standard HCO3 [facility] ([facility]) ID Date Data Source [id number] 08/09/2020 12:40:00 PM EDT JEFF ([facility]) Name Value Range Interpretation Code Description Data Becky rce(s) Supporting Document(s) Hemoglobin A1c/Hemoglobin.total in Blood 8.6 % Hemoglobin a1C JE[facility] ([facility]) estimated average glucose 200 mg/dL 60-110 Above high norm al Estimated Average Glucose [facility] ([facility]) ID Date Data Source [id number] 08/09/2020 12:40:00 PM EDT [place] ([facility]) Name Value Range Interpretation Code Description Data Becky rce(s) Supporting Document(s) acetone/ketone 1.22 mg/dL <2.81 Acetone/ketone [place] ([facility]) ID Date Data Source [id number] 08/09/2020 12:40:00 PM EDT JEFF ([facility]) Name Value Range Interpretation Code Description Data Becky rce(s) Supporting Document(s) glucose, fasting 210 mg/dL 70-100 Above high normal Glucose, Fas ting JEFF ([facility]) blood urea nitrogen 16 mg/dL 7-18 Blood Urea Nitro gen JEFF ([facility]) glomerular filtration rate > 60.0 >60 Glomerula r Filtration Rate JE[facility] ([facility]) creatinine for GFR 1.03 mg/dL 0.70-1.30 Creatinine for GF R [place] ([facility]) sodium level 135 mEq/L 136-145 Below low normal Sodium Level ATHE NA ([facility]) potassium serum 4.0 mEq/L 3.5-5.1 Potassium Serum ATHE NA ([facility]) anion gap 6 mEq/L 8-16 Below low normal Anion Gap JEFF ( [facility]) carbon dioxide level 28 mEq/L 21-32 Carbon Dioxide Level JE[facility] ([facility]) chloride level 101 mEq/L 98-107 Chloride Level [place] ([facility]) calcium level 9.7 mg/dL 8.5-10.1 Calcium Level [place] ( [facility]) ID Date Data Source [id number] 08/09/2020 12:40:00 PM [facility] Name Value Range Interpretation Code Description Data Becky rce(s) Supporting Document(s) AST/SGOT 24 U/L 7-37 AST/SGOT [facility] ([facility]) bilirubin,total 0.4 mg/dL 0.2-1.0 Bilirubin,total AT[facility] NA ([facility]) ALT/SGPT 39 U/L 12-78 ALT/SGPT [facility] ([facility]) alkaline phosphatase 101 U/L 45-117 Alkaline Phosph atase [facility] ([facility]) bilirubin,direct 0.1 mg/dL 0.0-0.2 Bilirubin,direct AT [place] ([facility]) total protein 7.6 gm/dL 6.4-8.2 Total Protein JE[facility] ( [facility]) albumin 3.9 gm/dL 3.2-5.2 Albumin [facility] ([facility]) albumin/globulin ratio Albumin/globu bianca Ratio [facility] ([facility]) ID Date Data Source [id number] 08/09/2020 12:40:00 PM EDT JEFF ([facility]) Name Value Range Interpretation Code Description Data Becky rce(s) Supporting Document(s) white blood count 7.4 10 4.0-10.0 White Blood Count [facility] ([facility]) red blood count 5.23 10 4.30-6.10 Red Blood Count [facility] ([facility]) mean corpuscular volume 88.0 fL 80.0-96.0 Mean Corpusc ular Volume JE[facility] ([facility]) hematocrit 46.0 % 42.0-52.0 Hematocrit [facility] ([facility]) hemoglobin 15.5 g/dL 13.5-17.5 Hemoglobin [facility] ([facility]) mean corpuscular hemoglobin 29.6 pg 27.0-33.0 Mean Cor puscular Hemoglobin [facility] ([facility]) mean corpuscular HGB conc 33.7 g/dL 32.0-36.5 Mean Corpu scular HGB Conc [facility] ([facility]) red cell distribution width 12.5 % 11.5-14.5 Red Cell Distribution Width [facility] ([facility]) lymph % 23.0 % 24.0-44.0 Below low normal Lymph % JE[facility] ( [facility]) neutrophils % 60.8 % 36.0-66.0 Neutrophils % [facility] ( [facility]) platelet count, automated 186 10 150-450 Platelet C ount, Automated JE[facility] ([facility]) immature granulocyte % 1.8 % 0-3.0 Immature Gran ulocyte % [facility] ([facility]) eos % 5.8 % 0.0-3.0 Above high normal Eos % [facility] ([facility]) baso % 1.0 % 0.0-1.0 Baso % [facility] ([facility]) mono % 7.6 % 0.0-5.0 Above high normal [place] % [facility] ([facility]) lymph # 1.7 10 1.5-5.0 Lymph # [place] ([facility]) neutrophils # 4.5 10 1.5-8.5 Neutrophils # [place] ( [facility]) nucleated red blood cell % 0.0 % 0-0 Nucleated Red Blood Cell % [facility] ([facility]) baso # 0.1 10 0.0-0.2 Baso # [facility] ([facility]) eos # 0.4 10 0.0-0.5 Eos # [facility] ([facility]) mono # 0.6 10 0.0-0.8 [place] # [facility] ([facility]) ID Date Data Source [id number] 08/09/2020 12:40:00 PM EDT [place] ([facility]) Name Value Range Interpretation Code Description Data Becky rce(s) Supporting Document(s) venous pH 7.320 units 7.330-7.430 Below low normal Venous pH [place] ([facility]) venous partial pressure CO2 42.6 mmHg 38.0-50.0 Venous P artial Pressure CO2 [facility] ([facility]) venous partial pressure O2 62.5 mmHg 30.0-50.0 Above high nor mal Venous Partial Pressure O2 [facility] ([facility]) venous base excess -2.0-2.0 Below low normal Venous Base Excess [place] ([facility]) venous HCO3 21.5 mEq/L 23.0-27.0 Below low normal Venous HCO3 [place] ([facility]) venous total CO2 22.8 mEq/L 24.0-28.0 Below low normal Venous Total CO2 [facility] ([facility]) venous O2 saturation 91.2 % 60.0-80.0 Above high normal Venous O 2 Saturation [facility] ([facility]) venous standard HCO3 20.7 mEq/L Venous Standard HCO3 [facility] ([facility]) ID Date Data Source [id number] 08/09/2020 12:40:00 PM EDT [place] ([facility]) Name Value Range Interpretation Code Description Data Becyk rce(s) Supporting Document(s) estimated average glucose 200 mg/dL 60-110 Above high norm al Estimated Average Glucose [place] ([facility]) Hemoglobin A1c/Hemoglobin.total in Blood 8.6 % Hemoglobin a1C [facility]) ID Date Data Source [id number] 08/09/2020 12:40:00 PM EDT [place] ([facility]) Name Value Range Interpretation Code Description Data Becky rce(s) Supporting Document(s) acetone/ketone 1.22 mg/dL <2.81 Acetone/ketone [facility]) ID Date Data Source [id number] 08/09/2020 12:40:00 PM EDT [facility]) Name Value Range Interpretation Code Description Data Becky rce(s) Supporting Document(s) creatinine for GFR 1.03 mg/dL 0.70-1.30 Creatinine for GF R JEFF ([facility]) glucose, fasting 210 mg/dL 70-100 Above high normal Glucose, Fas ting [place] ([facility]) glomerular filtration rate > 60.0 >60 Glomerula r Filtration Rate JE[facility] ([facility]) blood urea nitrogen 16 mg/dL 7-18 Blood Urea Nitro gen JE[facility] ([facility]) chloride level 101 mEq/L 98-107 Chloride Level [place] ([facility]) potassium serum 4.0 mEq/L 3.5-5.1 Potassium Serum [facility] ([facility]) sodium level 135 mEq/L 136-145 Below low normal Sodium Level AT[facility] NA ([facility]) anion gap 6 mEq/L 8-16 Below low normal Anion Gap [facility] ( [facility]) calcium level 9.7 mg/dL 8.5-10.1 Calcium Level [facility] ( [facility]) carbon dioxide level 28 mEq/L 21-32 Carbon Dioxide Level [facility] ([facility]) ID Date Data Source [id number] 08/09/2020 12:40:00 PM EDT JEFF ([facility]) Name Value Range Interpretation Code Description Data Becky rce(s) Supporting Document(s) AST/SGOT 24 U/L 7-37 AST/SGOT [facility] ([facility]) bilirubin,total 0.4 mg/dL 0.2-1.0 Bilirubin,total [facility] ([facility]) alkaline phosphatase 101 U/L 45-117 Alkaline Phosph atase [facility] ([facility]) ALT/SGPT 39 U/L 12-78 ALT/SGPT [facility] ([facility]) albumin 3.9 gm/dL 3.2-5.2 Albumin [facility] ([facility]) bilirubin,direct 0.1 mg/dL 0.0-0.2 Bilirubin,direct AT [place] ([facility]) albumin/globulin ratio Albumin/globu bianca Ratio [facility] ([facility]) total protein 7.6 gm/dL 6.4-8.2 Total Protein [facility] ( [facility]) ID Date Data Source [id number] 08/09/2020 12:40:00 PM EDT JEFF ([facility]) Name Value Range Interpretation Code Description Data Becky rce(s) Supporting Document(s) white blood count 7.4 10 4.0-10.0 White Blood Count [facility] ([facility]) red blood count 5.23 10 4.30-6.10 Red Blood Count [facility] ([facility]) mean corpuscular volume 88.0 fL 80.0-96.0 Mean Corpusc ular Volume [facility] ([facility]) hemoglobin 15.5 g/dL 13.5-17.5 Hemoglobin [facility] ([facility]) hematocrit 46.0 % 42.0-52.0 Hematocrit [facility] ([facility]) mean corpuscular HGB conc 33.7 g/dL 32.0-36.5 Mean Corpu scular HGB Conc [facility] ([facility]) red cell distribution width 12.5 % 11.5-14.5 Red Cell Distribution Width [facility] ([facility]) mean corpuscular hemoglobin 29.6 pg 27.0-33.0 Mean Cor puscular Hemoglobin [facility] ([facility]) platelet count, automated 186 10 150-450 Platelet C ount, Automated [facility] ([facility]) lymph % 23.0 % 24.0-44.0 Below low normal Lymph % [facility] ( [facility]) neutrophils % 60.8 % 36.0-66.0 Neutrophils % [facility] ( [facility]) immature granulocyte % 1.8 % 0-3.0 Immature Gran ulocyte % [facility] ([facility]) eos % 5.8 % 0.0-3.0 Above high normal Eos % [facility] ([facility]) mono % 7.6 % 0.0-5.0 Above high normal [place] % [facility] ([facility]) baso % 1.0 % 0.0-1.0 Baso % [facility] ([facility]) lymph # 1.7 10 1.5-5.0 Lymph # [facility] ([facility]) nucleated red blood cell % 0.0 % 0-0 Nucleated Red Blood Cell % [facility] ([facility]) neutrophils # 4.5 10 1.5-8.5 Neutrophils # [facility] ( [facility]) eos # 0.4 10 0.0-0.5 Eos # [facility] ([facility]) mono # 0.6 10 0.0-0.8 [place] # [facility] ([facility]) baso # 0.1 10 0.0-0.2 Baso # [facility] ([facility]) ID Date Data Source [id number] 08/09/2020 12:40:00 PM EDT [facility] ([facility]) Name Value Range Interpretation Code Description Data Becky rce(s) Supporting Document(s) venous pH 7.320 units 7.330-7.430 Below low normal Venous pH [facility] ([facility]) venous partial pressure CO2 42.6 mmHg 38.0-50.0 Venous P artial Pressure CO2 [facility] ([facility]) venous partial pressure O2 62.5 mmHg 30.0-50.0 Above high nor mal Venous Partial Pressure O2 [facility] ([facility]) venous total CO2 22.8 mEq/L 24.0-28.0 Below low normal Venous Total CO2 [place] ([facility]) venous base excess -2.0-2.0 Below low normal Venous Base Excess [place] ([facility]) venous HCO3 21.5 mEq/L 23.0-27.0 Below low normal Venous HCO3 [place] ([facility]) venous O2 saturation 91.2 % 60.0-80.0 Above high normal Venous O 2 Saturation [facility] ([facility]) venous standard HCO3 20.7 mEq/L Venous Standard HCO3 [place] ([facility]) ID Date Data Source [id number] 08/09/2020 12:40:00 PM EDT [place] ([facility]) Name Value Range Interpretation Code Description Data Becky rce(s) Supporting Document(s) Hemoglobin A1c/Hemoglobin.total in Blood 8.6 % Hemoglobin a1C [facility] ([facility]) estimated average glucose 200 mg/dL 60-110 Above high norm al Estimated Average Glucose [place] ([facility]) ID Date Data Source [id number] 08/09/2020 12:40:00 PM EDT JE[facility] ([facility]) Name Value Range Interpretation Code Description Data Becky rce(s) Supporting Document(s) acetone/ketone 1.22 mg/dL <2.81 Acetone/ketone [facility] ([facility]) ID Date Data Source [id number] 08/09/2020 12:40:00 PM EDT [place] ([facility]) Name Value Range Interpretation Code Description Data Becky rce(s) Supporting Document(s) glucose, fasting 210 mg/dL 70-100 Above high normal Glucose, Fas ting [facility] ([facility]) glomerular filtration rate > 60.0 >60 Glomerula r Filtration Rate [facility] ([facility]) blood urea nitrogen 16 mg/dL 7-18 Blood Urea Nitro gen [facility] ([facility]) creatinine for GFR 1.03 mg/dL 0.70-1.30 Creatinine for GF R [place] ([facility]) potassium serum 4.0 mEq/L 3.5-5.1 Potassium Serum [facility] NA ([facility]) carbon dioxide level 28 mEq/L 21-32 Carbon Dioxide Level [place] ([facility]) chloride level 101 mEq/L 98-107 Chloride Level [place] ([facility]) sodium level 135 mEq/L 136-145 Below low normal Sodium Level [facility] NA ([facility]) calcium level 9.7 mg/dL 8.5-10.1 Calcium Level [place] ( [facility]) anion gap 6 mEq/L 8-16 Below low normal Anion Gap [place] ( [facility]) ID Date Data Source [id number] 08/09/2020 12:40:00 PM EDT [place] ([facility]) Name Value Range Interpretation Code Description Data Becky rce(s) Supporting Document(s) AST/SGOT 24 U/L 7-37 AST/SGOT [place] ([facility]) alkaline phosphatase 101 U/L 45-117 Alkaline Phosph atase [place] ([facility]) ALT/SGPT 39 U/L 12-78 ALT/SGPT [place] ([facility]) bilirubin,direct 0.1 mg/dL 0.0-0.2 Bilirubin,direct AT [facility]) bilirubin,total 0.4 mg/dL 0.2-1.0 Bilirubin,total AT[facility] NA ([facility]) total protein 7.6 gm/dL 6.4-8.2 Total Protein [facility] ( [facility]) albumin/globulin ratio Albumin/globu bianca Ratio [facility] ([facility]) albumin 3.9 gm/dL 3.2-5.2 Albumin [facility] ([facility]) ID Date Data Source [id number] 08/09/2020 12:40:00 PM EDT [facility] ([facility]) Name Value Range Interpretation Code Description Data Becky rce(s) Supporting Document(s) red blood count 5.23 10 4.30-6.10 Red Blood Count [facility] ([facility]) white blood count 7.4 10 4.0-10.0 White Blood Count [facility] ([facility]) mean corpuscular volume 88.0 fL 80.0-96.0 Mean Corpusc ular Volume [facility] ([facility]) hemoglobin 15.5 g/dL 13.5-17.5 Hemoglobin [facility] ([facility]) hematocrit 46.0 % 42.0-52.0 Hematocrit [facility] ([facility]) red cell distribution width 12.5 % 11.5-14.5 Red Cell Distribution Width [facility] ([facility]) mean corpuscular HGB conc 33.7 g/dL 32.0-36.5 Mean Corpu scular HGB Conc [facility] ([facility]) mean corpuscular hemoglobin 29.6 pg 27.0-33.0 Mean Cor puscular Hemoglobin [facility] ([facility]) platelet count, automated 186 10 150-450 Platelet C ount, Automated [facility] ([facility]) lymph % 23.0 % 24.0-44.0 Below low normal Lymph % [facility] ( [facility]) neutrophils % 60.8 % 36.0-66.0 Neutrophils % [facility] ( [facility]) mono % 7.6 % 0.0-5.0 Above high normal [place] % [facility] ([facility]) immature granulocyte % 1.8 % 0-3.0 Immature Gran ulocyte % [facility] ([facility]) eos % 5.8 % 0.0-3.0 Above high normal Eos % [facility] ([facility]) baso % 1.0 % 0.0-1.0 Baso % [facility] ([facility]) lymph # 1.7 10 1.5-5.0 Lymph # [facility] ([facility]) neutrophils # 4.5 10 1.5-8.5 Neutrophils # [facility] ( [facility]) nucleated red blood cell % 0.0 % 0-0 Nucleated Red Blood Cell % [facility] ([facility]) mono # 0.6 10 0.0-0.8 [place] # [facility] ([facility]) baso # 0.1 10 0.0-0.2 Baso # [facility] ([facility]) eos # 0.4 10 0.0-0.5 Eos # [facility] ([facility]) ID Date Data Source [id number] 08/09/2020 12:40:00 PM EDT [place] ([facility]) Name Value Range Interpretation Code Description Data Becky rce(s) Supporting Document(s) venous partial pressure CO2 42.6 mmHg 38.0-50.0 Venous P artial Pressure CO2 [facility] ([facility]) venous pH 7.320 units 7.330-7.430 Below low normal Venous pH [place] ([facility]) venous partial pressure O2 62.5 mmHg 30.0-50.0 Above high nor mal Venous Partial Pressure O2 [facility] ([facility]) venous total CO2 22.8 mEq/L 24.0-28.0 Below low normal Venous Total CO2 [facility] ([facility]) venous base excess -2.0-2.0 Below low normal Venous Base Excess [facility] ([facility]) venous standard HCO3 20.7 mEq/L Venous Standard HCO3 [facility] ([facility]) venous HCO3 21.5 mEq/L 23.0-27.0 Below low normal Venous HCO3 [facility] ([facility]) venous O2 saturation 91.2 % 60.0-80.0 Above high normal Venous O 2 Saturation [place] ([facility]) ID Date Data Source [id number] 08/09/2020 12:40:00 PM EDT [place] ([facility]) Name Value Range Interpretation Code Description Data Becky rce(s) Supporting Document(s) Hemoglobin A1c/Hemoglobin.total in Blood 8.6 % Hemoglobin a1C [place] ([facility]) estimated average glucose 200 mg/dL 60-110 Above high norm al Estimated Average Glucose [place] ([facility]) ID Date Data Source [id number] 08/09/2020 12:40:00 PM EDT [place] ([facility]) Name Value Range Interpretation Code Description Data Becky rce(s) Supporting Document(s) Hemoglobin A1c/Hemoglobin.total in Blood 8.6 % Hemoglobin a1C [place] ([facility]) estimated average glucose 200 mg/dL 60-110 Above high norm al Estimated Average Glucose [place] ([facility]) ID Date Data Source [id number] 08/09/2020 12:40:00 PM EDT [place] ([facility]) Name Value Range Interpretation Code Description Data Becky rce(s) Supporting Document(s) acetone/ketone 1.22 mg/dL <2.81 Acetone/ketone [place] ([facility]) ID Date Data Source [id number] 08/09/2020 12:40:00 PM EDT [place] ([facility]) Name Value Range Interpretation Code Description Data Becky rce(s) Supporting Document(s) glucose, fasting 210 mg/dL 70-100 Above high normal Glucose, Fas ting [place] ([facility]) sodium level 135 mEq/L 136-145 Below low normal Sodium Level AT[facility] NA ([facility]) blood urea nitrogen 16 mg/dL 7-18 Blood Urea Nitro gen [place] ([facility]) creatinine for GFR 1.03 mg/dL 0.70-1.30 Creatinine for GF R [place] ([facility]) glomerular filtration rate > 60.0 >60 Glomerula r Filtration Rate [facility] ([facility]) carbon dioxide level 28 mEq/L 21-32 Carbon Dioxide Level [facility] ([facility]) chloride level 101 mEq/L 98-107 Chloride Level [facility] ([facility]) potassium serum 4.0 mEq/L 3.5-5.1 Potassium Serum AT[facility] ([facility]) anion gap 6 mEq/L 8-16 Below low normal Anion Gap [facility] ( [facility]) calcium level 9.7 mg/dL 8.5-10.1 Calcium Level [facility] ( [facility]) ID Date Data Source [id number] 08/09/2020 12:40:00 PM EDT [facility] ([facility]) Name Value Range Interpretation Code Description Data Becky rce(s) Supporting Document(s) alkaline phosphatase 101 U/L 45-117 Alkaline Phosph atase [facility] ([facility]) ALT/SGPT 39 U/L 12-78 ALT/SGPT [facility] ([facility]) AST/SGOT 24 U/L 7-37 AST/SGOT [facility] ([facility]) bilirubin,total 0.4 mg/dL 0.2-1.0 Bilirubin,total ATHE ([facility]) bilirubin,direct 0.1 mg/dL 0.0-0.2 Bilirubin,direct AT [facility]) total protein 7.6 gm/dL 6.4-8.2 Total Protein JEFF ( [facility]) albumin 3.9 gm/dL 3.2-5.2 Albumin JE[facility] ([facility]) albumin/globulin ratio Albumin/globu bianca Ratio JE[facility] ([facility]) ID Date Data Source [id number] 08/09/2020 12:40:00 PM EDT [facility] ([facility]) Name Value Range Interpretation Code Description Data Becky rce(s) Supporting Document(s) white blood count 7.4 10 4.0-10.0 White Blood Count JE[facility] ([facility]) red blood count 5.23 10 4.30-6.10 Red Blood Count ATHE NA ([facility]) hematocrit 46.0 % 42.0-52.0 Hematocrit JE[facility] ([facility]) hemoglobin 15.5 g/dL 13.5-17.5 Hemoglobin JE[facility] ([facility]) mean corpuscular volume 88.0 fL 80.0-96.0 Mean Corpusc ular Volume JEFF ([facility]) mean corpuscular hemoglobin 29.6 pg 27.0-33.0 Mean Cor puscular Hemoglobin JE[facility] ([facility]) mean corpuscular HGB conc 33.7 g/dL 32.0-36.5 Mean Corpu scular HGB Conc JE[facility] ([facility]) platelet count, automated 186 10 150-450 Platelet C ount, Automated JE[facility] ([facility]) red cell distribution width 12.5 % 11.5-14.5 Red Cell Distribution Width JE[facility] ([facility]) lymph % 23.0 % 24.0-44.0 Below low normal Lymph % JEFF ( [facility]) neutrophils % 60.8 % 36.0-66.0 Neutrophils % JE[facility] ( [facility]) mono % 7.6 % 0.0-5.0 Above high normal Parke % JE[facility] ([facility]) baso % 1.0 % 0.0-1.0 Baso % JE[facility] ([facility]) eos % 5.8 % 0.0-3.0 Above high normal Eos % JE[facility] ([facility]) immature granulocyte % 1.8 % 0-3.0 Immature Gran ulocyte % JE[facility] ([facility]) nucleated red blood cell % 0.0 % 0-0 Nucleated Red Blood Cell % JE[facility] ([facility]) neutrophils # 4.5 10 1.5-8.5 Neutrophils # JEFF ( [facility]) lymph # 1.7 10 1.5-5.0 Lymph # JE[facility] ([facility]) mono # 0.6 10 0.0-0.8 Parke # [facility] ([facility]) eos # 0.4 10 0.0-0.5 Eos # [facility] ([facility]) baso # 0.1 10 0.0-0.2 Baso # JE[facility] ([facility]) ID Date Data Source [id number] 08/09/2020 12:40:00 PM EDT [place] ([facility]) Name Value Range Interpretation Code Description Data Becky rce(s) Supporting Document(s) venous pH 7.320 units 7.330-7.430 Below low normal Venous pH JE[facility] ([facility]) venous partial pressure CO2 42.6 mmHg 38.0-50.0 Venous P artial Pressure CO2 [place] ([facility]) venous partial pressure O2 62.5 mmHg 30.0-50.0 Above high nor mal Venous Partial Pressure O2 [place] ([facility]) venous base excess -2.0-2.0 Below low normal Venous Base Excess [place] ([facility]) venous HCO3 21.5 mEq/L 23.0-27.0 Below low normal Venous HCO3 [place] ([facility]) venous total CO2 22.8 mEq/L 24.0-28.0 Below low normal Venous Total CO2 [place] ([facility]) venous O2 saturation 91.2 % 60.0-80.0 Above high normal Venous O 2 Saturation [place] ([facility]) venous standard HCO3 20.7 mEq/L Venous Standard HCO3 [place] ([facility]) ID Date Data Source [id number] 08/09/2020 11:49:00 AM EDT [place] ([facility]) Name Value Range Interpretation Code Description Data Becky rce(s) Supporting Document(s) bedside glucose 233 mg/dL 70-105 Above high normal Bedside Gluco se [place] ([facility]) ID Date Data Source [id number] 08/09/2020 11:49:00 AM EDT [facility]) Name Value Range Interpretation Code Description Data Becky rce(s) Supporting Document(s) bedside glucose 233 mg/dL 70-105 Above high normal Bedside Gluco se [place] ([facility]) ID Date Data Source [id number] 08/09/2020 11:49:00 AM EDT [facility]) Name Value Range Interpretation Code Description Data Becky rce(s) Supporting Document(s) bedside glucose 233 mg/dL 70-105 Above high normal Bedside Gluco se [place] ([facility]) ID Date Data Source [id number] 08/09/2020 11:49:00 AM EDT [facility]) Name Value Range Interpretation Code Description Data Becky rce(s) Supporting Document(s) bedside glucose 233 mg/dL 70-105 Above high normal Bedside Gluco se [facility]) ID Date Data Source [id number] 08/09/2020 11:49:00 AM EDT [facility]) Name Value Range Interpretation Code Description Data Becky rce(s) Supporting Document(s) bedside glucose 233 mg/dL 70-105 Above high normal Bedside Gluco se [facility]) ID Date Data Source [id number] 08/09/2020 11:49:00 AM EDT [facility]) Name Value Range Interpretation Code Description Data Becky rce(s) Supporting Document(s) bedside glucose 233 mg/dL 70-105 Above high normal Bedside Gluco se [facility]) ID Date Data Source [id number] 08/09/2020 11:49:00 AM EDT [facility]) Name Value Range Interpretation Code Description Data Becky rce(s) Supporting Document(s) bedside glucose 233 mg/dL 70-105 Above high normal Bedside Gluco se [facility]) ID Date Data Source [id number] 08/09/2020 11:49:00 AM EDT [facility]) Name Value Range Interpretation Code Description Data Becky rce(s) Supporting Document(s) bedside glucose 233 mg/dL 70-105 Above high normal Bedside Gluco se [place] ([facility]) ID Date Data Source [id number] 08/09/2020 11:49:00 AM EDT [facility]) Name Value Range Interpretation Code Description Data Becky rce(s) Supporting Document(s) bedside glucose 233 mg/dL 70-105 Above high normal Bedside Gluco se [facility]) ID Date Data Source [id number] 08/09/2020 11:49:00 AM EDT [facility]) Name Value Range Interpretation Code Description Data Becky rce(s) Supporting Document(s) bedside glucose 233 mg/dL 70-105 Above high normal Bedside Gluco se [facility]) ID Date Data Source [id number] 08/09/2020 11:49:00 AM EDT [facility]) Name Value Range Interpretation Code Description Data Becky rce(s) Supporting Document(s) bedside glucose 233 mg/dL 70-105 Above high normal Bedside Gluco se [facility]) ID Date Data Source [id number] 08/09/2020 11:49:00 AM EDT [facility]) Name Value Range Interpretation Code Description Data Becky rce(s) Supporting Document(s) bedside glucose 233 mg/dL 70-105 Above high normal Bedside Gluco se [facility]) ID Date Data Source [id number] 08/09/2020 11:49:00 AM EDT [facility]) Name Value Range Interpretation Code Description Data Becky rce(s) Supporting Document(s) bedside glucose 233 mg/dL 70-105 Above high normal Bedside Gluco se [place] ([facility]) ID Date Data Source [id number] 08/09/2020 11:49:00 AM EDT [facility]) Name Value Range Interpretation Code Description Data Becky rce(s) Supporting Document(s) bedside glucose 233 mg/dL 70-105 Above high normal Bedside Gluco se [facility]) ID Date Data Source [id number] 08/09/2020 11:49:00 AM EDT [facility]) Name Value Range Interpretation Code Description Data Becky rce(s) Supporting Document(s) bedside glucose 233 mg/dL 70-105 Above high normal Bedside Gluco se [facility]) ID Date Data Source [id number] 08/09/2020 11:49:00 AM EDT [facility]) Name Value Range Interpretation Code Description Data Becky rce(s) Supporting Document(s) bedside glucose 233 mg/dL 70-105 Above high normal Bedside Gluco se [facility]) ID Date Data Source [id number] 08/09/2020 11:49:00 AM EDT [facility]) Name Value Range Interpretation Code Description Data Becky rce(s) Supporting Document(s) bedside glucose 233 mg/dL 70-105 Above high normal Bedside Gluco se [facility]) ID Date Data Source [id number] 08/09/2020 12:00:00 AM EDT [facility]) Name Value Range Interpretation Code Description Data Becky rce(s) Supporting Document(s) ID Date Data Source [id number] 07/28/2020 01:20:20 PM EDT [facility] Measurements & CalculationsHeight: 68 inches (5 ft. 8 in.) 172.72 cm Weight: 264 pounds 2 oz. 120.06 kg Body Mass Index (BMI): 40.31BMI Interpretation: Morbidly ObeseBody Surface Area (BSA): 2.30Weight Management Education Done (Nutrition/Physical Activity)Vital SignsTemperature: 97.2F tympanic Pulse Rate: 86 beats/minuteRespiratory Rate: 17 respirations/minuteBlood Pressure: 134/83 automaticO2 Saturation: 95% sittingVital Signs performed by: Iris King MA, July 28, 2020 1:52 PMInitial Intake Information From: patientRoom #: 14Infectious Disease / Travel ScreeningRecent travel for you or any close contacts? NoHave you had any close contact with anyone diagnosed with or under investigation for COVID-19 (coronavirus)? NoFever? NoRespiratory symptoms: cough, cold, congestion, shortness of breath, difficulty breathing? NoLoss of smell? NoLoss of taste? NoS moking, Tobacco, Vaping or Smoke Exposure StatusSmoke Status: current every day smokerTobacco Use: YesAdv to Quit: YesDo you vape? NoPassive Smoke Exposure: YesHealthcare HistorySince your last office visit...Have you been admitted to the hospital? NoHave you been to an emergency room (ER) or urgent care clinic? Yes - [facility] (thyroid problem)Emergency room (ER) or urgent care date reported today: 05/31/2020Have you seen another healthcare provider? NoHave you seen a dentist? NoIntake performed by: Iris King MA, July 28, 2020 1:25 PMRate Your HealthIn general, would you say your health is? GoodPain AssessmentAre you currently having any pain which... You would like your provider to address? Yes Affects your activity level? YesFood InsecurityWithin the past year...Did you worry whether your food would run out before you got money to buy more? Never trueWas there a time when the food you bought didn't last and you didn't have money to get more? Never truePain Assess mentPain ScaleNumeric Rating Scale: 9 / 10Location: Back, Hips HILARY, Legs BILDuration: 6 monthsFrequency: DailyCharacter/Quality: aching, burning, sharp and stingingIs the pain radiating? NoScreening, Brief Intervention, & Referral to Treatment (SBIRT)Pre-Screening Questions How many times have you have 5 or more drinks in a day? 0How many times have you used an illegal drug or used a prescription medication for a non-medical reason? 0Performed by: Iris King MA, July 28, 2020 1:27 PMPatient History Medical History:AsthmaAnxiety DisorderDepressionDiverticulitisG E R DHepatitis CLiver DiseaseSeizure DisorderTBIDegenerative disk diseaseSurgical History:Back surgery 2006Liver Biopsy 2000Family History:Family History of AlcoholismFamily History of ArthritisFH of AnxietyFamily History of AsthmaFH Breast CancerFH Colon CancerFH DepressionFH DiabetesFH Heart DiseaseFH High CholesterolFH Lung/Respiratory DiseaseFH SeizuresFamily History of Severe AllergiesFH StrokeFH Thyroid ProblemsFH Other CancerFamily History of AnginaFamily History of Cervical CancerFamily History Coronary Heart Disease male < 55Family History Coronary Heart Disease female < 65Family History Colon Cancer-fatherFH HeadachesFH Lung CancerFamily History of MelanomaFH Ovarian CancerFH Psychiatric CareFH Weight DisorderSocial/Personal History:Smoking History:Patient currently smokes every day.Patient has been counseled to quit. Advised to Quit/Tobacco Education: YesChief Complaintfollow-up visit/medsHistory of Present Illness (HPI)Back and leg pain. Minimal relief with ibuprofen. Worsening over the past 4-5 months.Tr donna to stay active and eat healthy.Blood sugars 200-300.HPI performed by: Steven Veloz MD, July 28, 2020 1:57 PMTransitions of Care InboundMedication Reconciliation & ReviewMedication List was reviewed and/or updated during this visit, including review of any [id number] medications, herbal therapies, and/or supplements.Allergy ReviewAllergy List was reviewed and/or updated during this visit.Adult Preventive CareProvider Calculated and Reviewed all Clinical Protocols for patient today. Screening Tobacco Screening: Smoking Status: current every day smoker (07/28/2020) Tobacco Use: Currently (07/28/2020) Advised to Quit: Yes (07/28/2020)Labs/Meds/Other Counseling-Nutrition and Physical Activity:BMI Interpretation: Morbidly Obese (07/28/2020) Counseling: Done (07/28/2020) Physical Activity: Done (07/28/2020)Review of Systems General: Denies dizziness, fatigue. Cardiovascular: Denies chest pain. Respiratory: Denies difficulty breathing. Gastrointestinal: Denies diarrhea, constipation. Genitourinary: Denies pain with urination, urinary frequency, urinary urgency. Physical ExamGeneral Appearance: well nourished, well hydrated, no acute distressRespiratory, Auscultation: clear to auscultation bilaterally; no rales, rhonchi, or wheezesRespiratory, Effort: no intercostal retractions or use of accessory musclesCardiovascular, Auscultation: S1, S2 audible; no murmur, rub, or gallop; RRRGait & Station: normalOrientation: oriented to time, place, and personMood & Affect: no depression, anxiety, or agitationJudgment & Insight: intactCare Management Plan Transitions of CareInboundRate Your HealthIn general, would you say your health is? GoodAssessment & Plan Problems:Assessed:Type 2 diabetes mellitus without complications (IDQ41-I03.9) Assessment: Instructions: Suboptimal control.Increase Basaglar from 20 to 30 units a day and recheck one month with fasting blood tests before.His low back pain is no lomger relieved with ibuprofen. We will take him off this and have him take OTC Tylenol instead.Patient Instructions/Care Plan: Type 2 diabetes mellitus without complications: Suboptimal control.Increase Basaglar from 20 to 30 units a day and recheck one month with fasting blood tests before.His low back pain is no lomger relieved with ibuprofen. We will take him off this and have him take OTC Tylenol instead. Plan developed in collaboration with patient and/or familyMedications:LAMICTAL 25 MG ORAL TABLETLAMICTAL 100 MG ORAL TABLETEQL SENNA-S 8.6-50 MG ORAL TABLETFENOFIBRATE 134 MG ORAL CAPSULEDOK CAPSULEGABAPENTIN 400 MG ORAL CAPSULEZIPRASIDONE HCL 80 MG ORAL CAPSULECLONAZEPAM 0.5 MG ORAL TABLETBUSPIRONE HCL 15 MG ORAL TABLETPROPRANOLOL HCL 40 MG ORAL TABLETMETFORMIN HCL ER 500 MG ORAL TABLET EXTENDED RELEASE 24 HOURSIMVASTATIN 10 MG ORAL TABLETSYNTHROID 25 MCG ORAL TABLETALCOHOL PADS 70 % PADIBU 800 MG ORAL TABLETBLOOD GLUCOSE MONITOR SYSTEM W/DEVICE KITACCU-CHEK FASTCLIX LANCETSCOOL BLOOD GLUCOSE TEST STRIPS IN VITRO STRIPCAREFINE PEN NEED LES 31G X 8 MMBASAGLAR KWIKPEN 100 UNIT/ML SUBCUTANEOUS SOLUTION PEN- INJECTOROMEPRAZOLE 40 MG ORAL CAPSULE DELAYED RELEASETYLENOL 8 HOUR 650 MG ORAL TABLET EXTENDED RELEASEVITAMIN D (ERGOCALCIFEROL) 55931 UNIT ORAL CAPSULEMedication Changes:Added: METFORMIN HCL ER 500 MG ORAL TABLET EXTENDED RELEASE 24 HOUR-Take 2 TAB PO twice a dayPROPRANOLOL HCL 40 MG ORAL TABLET-Take 1 TAB PO twice a dayBUSPIRONE HCL 15 MG ORAL TABLET-Take 1 Tab PO twice a dayCLONAZEPAM 0.5 MG ORAL TABLET-Take 1 TAB PO every day PRN. May take an additional TAB PRN Max Daily Dose=2 TABSZIPRASIDONE HCL 80 MG ORAL CAPSULE-Take 1 CAP PO Twice a dayGABAPENTIN 400 MG ORAL CAPSULE-Take 1 CAP PO three times a dayDOK CAPSULE-100 MG SOFTGELFENOFIBRATE 134 MG ORAL CAPSULE-Take 1 CAP PO every dayEQL SENNA-S 8.6-50 MG ORAL TABLET-take 2 Tabs PO At bedtimeLAMICTAL 100 MG ORAL TABLET-Take 1 TAB PO every dayLAMICTAL 25 MG ORAL TABLET-take 1 TAB PO daily for 2 weeks, then increase to 2 TAB PO daily for 2 weeksRemoved:BENZONATATE 200 MG ORAL CAPSULE-one capsule po QID prn severe cough, OLANZAPINE 5 MG ORAL TABLET-take po once a day, IBUPROFEN 800 MG ORAL TABLET-One po q8h prn pain. MDD 3.Allergies:PENICILLIN V POTASSIUM (PENICILLIN V POTASSIUM TABS) (Critical)ASPIRIN (ASPIRIN TABS) (Moderate)ERYTHROCIN STEARATE (ERYTHROMYCIN STEARATE TABS) (Moderate)Orders:Adult - Ofc Vst, EST, Level III [CPT-04336] COMP METABOLIC PANEL [CPT-31331] HgBA1c [CPT-87938] LIPID PANEL [CPT-06021] TSH [CPT-70816] T-4 free [CPT-76825] Name Value Range Interpretation Code Description Data Becky rce(s) Supporting Document(s) Procedure Social History Code Duration Value Status Description Data Source(s ) Smoking 07/02/2021 12:00:00 AM EDT Unknown if ever smoked comp leted Unknown if ever smoked [facility]) Smoking 06/14/2021 12:00:00 AM EDT Unknown if ever smoked comp leted Unknown if ever smoked [facility] ([facility]) Smoking 05/31/2021 12:00:00 AM EDT Unknown if ever smoked comp leted Unknown if ever smoked [facility] ([facility]) Smoking 05/30/2021 12:00:00 AM EDT Unknown if ever smoked comp leted Unknown if ever smoked [facility] ([facility]) Smoking 05/01/2021 12:00:00 AM EDT Unknown if ever smoked comp leted Unknown if ever smoked [facility] ([facility]) Smoking 03/26/2021 12:00:00 AM EDT Unknown if ever smoked comp leted Unknown if ever smoked [facility] ([facility]) Smoking 02/26/2021 12:00:00 AM EDT Unknown if ever smoked comp leted Unknown if ever smoked [facility] ([facility]) Smoking 02/07/2021 12:00:00 AM EDT Unknown if ever smoked comp leted Unknown if ever smoked [facility] ([facility]) Smoking 01/18/2021 12:00:00 AM EDT Unknown if ever smoked comp leted Unknown if ever smoked [facility] ([facility]) Smoking 12/28/2020 12:00:00 AM EDT Unknown if ever smoked comp leted Unknown if ever smoked [facility] ([facility]) Smoking 12/11/2020 12:00:00 AM EST Unknown if ever smoked comp leted Unknown if ever smoked [facility] ([facility] Smoking 12/07/2020 12:00:00 AM EST Unknown if ever smoked comp leted Unknown if ever smoked [facility] ([facility]) Smoking 11/07/2020 12:00:00 AM EST Unknown if ever smoked comp leted Unknown if ever smoked [facility] ([facility]) Smoking 10/25/2020 12:00:00 AM EST Unknown if ever smoked comp leted Unknown if ever smoked [facility] ([facility]) Smoking 10/20/2020 12:00:00 AM EST Unknown if ever smoked comp leted Unknown if ever smoked [facility] ([facility]) Smoking 09/28/2020 12:00:00 AM EST Unknown if ever smoked comp leted Unknown if ever smoked [facility] ([facility]) Smoking 09/21/2020 12:00:00 AM EST Unknown if ever smoked comp leted Unknown if ever smoked [facility] ([facility]) Smoking 09/11/2020 12:00:00 AM EST Unknown if ever smoked comp leted Unknown if ever smoked [facility] ([facility]) Smoking 08/24/2020 12:00:00 AM EST Unknown if ever smoked comp leted Unknown if ever smoked [facility] ([facility]) Smoking 08/17/2020 12:00:00 AM EST Unknown if ever smoked comp leted Unknown if ever smoked [facility] ([facility]) Smoking 07/25/2020 12:00:00 AM EDT Unknown if ever smoked comp leted Unknown if ever smoked [facility] ([facility]) Smoking 07/20/2020 12:00:00 AM EDT Unknown if ever smoked comp leted Unknown if ever smoked [facility] ([facility]) Smoking 07/06/2020 12:00:00 AM EDT Unknown if ever smoked comp leted Unknown if ever smoked [facility] ([facility]) Smoking 06/16/2020 12:00:00 AM EDT Unknown if ever smoked comp leted Unknown if ever smoked [facility] Vital Signs ID Date Data Source UNK Name Value Range Interpretation Code Description Data Source(s) Diastolic blood pressure 78 mm[Hg] 78 mm[Hg] [facility] ([facility]) Body height 68 [in_i] 68 [in_i] [facility] ([facility]) Body mass index (BMI) [Ratio] 37.9 kg/m2 37.9 k g/m2 [facility] ([facility]) Systolic blood pressure 109 mm[Hg] 109 mm[Hg] [facility] Body weight 3992 [oz_av] 3992 [oz_av] [facility] ([facility]) Diastolic blood pressure 90 mm[Hg] 90 mm[Hg] [facility] ([facility]) Body height 68 [in_i] 68 [in_i] [facility] ([facility]) Body mass index (BMI) [Ratio] 38.9 kg/m2 38.9 k g/m2 [facility] ([facility]) Systolic blood pressure 135 mm[Hg] 135 mm[Hg] A [place] ([facility]) Body weight 4096 [oz_av] 4096 [oz_av] [facility] ([facility]) Diastolic blood pressure 90 mm[Hg] 90 mm[Hg] [facility] ([facility]) Body height 68 [in_i] 68 [in_i] [facility] ([facility]) Body mass index (BMI) [Ratio] 38.9 kg/m2 38.9 k g/m2 [facility] ([facility]) Systolic blood pressure 135 mm[Hg] 135 mm[Hg] A [place] ([facility]) Body weight 4096 [oz_av] 4096 [oz_av] [facility] ([facility]) Body weight 4150 [oz_av] 4150 [oz_av] [facility] ([facility]) Diastolic blood pressure 94 mm[Hg] 94 mm[Hg] [facility] ([facility]) Body height 68 [in_i] 68 [in_i] [facility] ([facility]) Body mass index (BMI) [Ratio] 39.4 kg/m2 39.4 k g/m2 [facility] ([facility]) Systolic blood pressure 135 mm[Hg] 135 mm[Hg] [facility] ([facility]) Diastolic blood pressure 94 mm[Hg] 94 mm[Hg] [facility] ([facility]) Body height 68 [in_i] 68 [in_i] [facility] ([facility]) Body mass index (BMI) [Ratio] 39.4 kg/m2 39.4 k g/m2 [facility] ([facility]) Systolic blood pressure 135 mm[Hg] 135 mm[Hg] [facility] ([facility]) Body weight 4150 [oz_av] 4150 [oz_av] [facility] ([facility]) Diastolic blood pressure 94 mm[Hg] 94 mm[Hg] [facility] ([facility]) Body height 68 [in_i] 68 [in_i] [facility] ([facility]) Body mass index (BMI) [Ratio] 39.4 kg/m2 39.4 k g/m2 [facility] ([facility]) Systolic blood pressure 135 mm[Hg] 135 mm[Hg] [facility] ([facility]) Body weight 4150 [oz_av] 4150 [oz_av] [facility] ([facility]) Diastolic blood pressure 88 mm[Hg] 88 mm[Hg] [facility] ([facility]) Body height 68 [in_i] 68 [in_i] [facility] ([facility]) Body mass index (BMI) [Ratio] 39.4 kg/m2 39.4 k g/m2 [facility] ([facility]) Systolic blood pressure 129 mm[Hg] 129 mm[Hg] [facility] ([facility]) Body weight 4150 [oz_av] 4150 [oz_av] [facility] ([facility]) Systolic blood pressure 129 mm[Hg] 129 mm[Hg] [facility] HEALTHA ([facility]) Body mass index (BMI) [Ratio] 39.4 kg/m2 39.4 k g/m2 JEFF ([facility]) Body weight 4150 [oz_av] 4150 [oz_av] JEFF ([facility]) Diastolic blood pressure 88 mm[Hg] 88 mm[Hg] JEFF ([facility]) Body height 68 [in_i] 68 [in_i] JEFF ([facility]) Diastolic blood pressure 88 mm[Hg] 88 mm[Hg] JEFF ([facility]) Body height 68 [in_i] 68 [in_i] JEFF ([facility]) Body mass index (BMI) [Ratio] 39.4 kg/m2 39.4 k g/m2 JEFF ([facility]) Systolic blood pressure 129 mm[Hg] 129 mm[Hg] [facility] ([facility]) Body weight 4150 [oz_av] 4150 [oz_av] JEFF ([facility]) Diastolic blood pressure 88 mm[Hg] 88 mm[Hg] JEFF ([facility]) Body height 68 [in_i] 68 [in_i] JEFF ([facility]) Body mass index (BMI) [Ratio] 39.4 kg/m2 39.4 k g/m2 JEFF ([facility]) Systolic blood pressure 129 mm[Hg] 129 mm[Hg] A [facility] ([facility]) Body weight 4150 [oz_av] 4150 [oz_av] JEFF ([facility]) Diastolic blood pressure 88 mm[Hg] 88 mm[Hg] JEFF ([facility]) Body height 68 [in_i] 68 [in_i] JEFF ([facility]) Body mass index (BMI) [Ratio] 39.4 kg/m2 39.4 k g/m2 JEFF ([facility]) Systolic blood pressure 129 mm[Hg] 129 mm[Hg] A THENA ([facility]) Body weight 4150 [oz_av] 4150 [oz_av] JEFF ([facility]) Diastolic blood pressure 88 mm[Hg] 88 mm[Hg] JEFF ([facility]) Body height 68 [in_i] 68 [in_i] JEFF ([facility]) Body mass index (BMI) [Ratio] 39.4 kg/m2 39.4 k g/m2 JEFF ([facility]) Systolic blood pressure 129 mm[Hg] 129 mm[Hg] A THENA ([facility]) Body weight 4150 [oz_av] 4150 [oz_av] JEFF ([facility]) Body weight 172.00 [lb_av] 172.00 [lb_av] MEDEN T ([facility] Systolic blood pressure 123 mm[Hg] 123 mm[Hg] M EDENT ([facility] Diastolic blood pressure 82 mm[Hg] 82 mm[Hg] MEDENT ([facility] Heart rate 85 /min 85 /min MEDENT ([facility] Diastolic blood pressure 82 mm[Hg] 82 mm[Hg] JEFF ([facility]) Body height 68 [in_i] 68 [in_i] JEFF ([facility]) Body mass index (BMI) [Ratio] 39.4 kg/m2 39.4 k g/m2 JEFF ([facility]) Systolic blood pressure 123 mm[Hg] 123 mm[Hg] A [facility] ([facility]) Body weight 4150 [oz_av] 4150 [oz_av] JEFF ([facility]) Diastolic blood pressure 82 mm[Hg] 82 mm[Hg] JEFF ([facility]) Body height 68 [in_i] 68 [in_i] JEFF ([facility]) Body mass index (BMI) [Ratio] 39.4 kg/m2 39.4 k g/m2 JEFF ([facility]) Systolic blood pressure 123 mm[Hg] 123 mm[Hg] A THENA ([facility]) Body weight 4150 [oz_av] 4150 [oz_av] JEFF ([facility]) Diastolic blood pressure 82 mm[Hg] 82 mm[Hg] JEFF ([facility]) Body height 68 [in_i] 68 [in_i] JEFF ([facility]) Body mass index (BMI) [Ratio] 39.4 kg/m2 39.4 k g/m2 JEFF ([facility]) Systolic blood pressure 123 mm[Hg] 123 mm[Hg] A [facility] ([facility]) Body weight 4150 [oz_av] 4150 [oz_av] JEFF ([facility]) Diastolic blood pressure 82 mm[Hg] 82 mm[Hg] JEFF ([facility]) Body height 68 [in_i] 68 [in_i] JEFF ([facility]) Body mass index (BMI) [Ratio] 39.4 kg/m2 39.4 k g/m2 JEFF ([facility]) Systolic blood pressure 123 mm[Hg] 123 mm[Hg] A [facility] ([facility]) Body weight 4150 [oz_av] 4150 [oz_av] JEFF ([facility]) Diastolic blood pressure 82 mm[Hg] 82 mm[Hg] JEFF ([facility]) Body height 68 [in_i] 68 [in_i] JEFF ([facility]) Systolic blood pressure 123 mm[Hg] 123 mm[Hg] A [facility] ([facility]) Body weight 4150 [oz_av] 4150 [oz_av] JEFF ([facility]) Body mass index (BMI) [Ratio] 39.4 kg/m2 39.4 k g/m2 JEFF ([facility]) Diastolic blood pressure 82 mm[Hg] 82 mm[Hg] JEFF ([facility]) Body height 68 [in_i] 68 [in_i] JEFF ([facility]) Body mass index (BMI) [Ratio] 39.4 kg/m2 39.4 k g/m2 JEFF ([facility]) Systolic blood pressure 123 mm[Hg] 123 mm[Hg] A [facility] ([facility]) Body weight 4150 [oz_av] 4150 [oz_av] JEFF ([facility]) Body height 68 [in_i] 68 [in_i] JEFF ([facility]) Body mass index (BMI) [Ratio] 39.4 kg/m2 39.4 k g/m2 JEFF ([facility]) Systolic blood pressure 123 mm[Hg] 123 mm[Hg] A [facility] ([facility]) Body weight 4150 [oz_av] 4150 [oz_av] JEFF ([facility]) Diastolic blood pressure 82 mm[Hg] 82 mm[Hg] JEFF ([facility]) Body height 68 [in_i] 68 [in_i] JEFF ([facility]) Body height 68 [in_i] 68 [in_i] JEFF ([facility]) Body height 68 [in_i] 68 [in_i] JEFF ([facility]) Body height 68 [in_i] 68 [in_i] JEFF ([facility]) Body height 68 [in_i] 68 [in_i] JEFF ([facility]) Body height 68 [in_i] 68 [in_i] JEFF ([facility]) Body height 68 [in_i] 68 [in_i] JEFF ([facility]) Body height 68 [in_i] 68 [in_i] JEFF ([facility]) Body height 68 [in_i] 68 [in_i] JEFF ([facility]) Body mass index (BMI) [Ratio] 0.00 kg/m2 No rmal (applies to non-numeric results) 0.00 kg/m2 [facility] ([facility]) Body weight Measured 0.00 lbs Normal (applies to n on-numeric results) 0.00 lbs [facility] ([facility]) Body height 0.00 in Normal (applies to non-numeric resu lts) 0.00 in [facility] ([facility]) Diastolic blood pressure 0 mm[Hg] Normal (applies to non-numeric results) 0 mm[Hg] [facility] Systolic blood pressure 0 mm[Hg] Normal (applies t o non-numeric results) 0 mm[Hg] [facility] ([facility]) Body weight 257 [lb_av] 257 [lb_av] eCW1 ([facility]) Body height 68 [in_i] 68 [in_i] eCW1 ([facility]) Body mass index (BMI) [Ratio] 39.07 kg/m2 39.07 kg/m2 eCW1 ([facility]) Body weight 258.50 [lb_av] 258.50 [lb_av] MEDEN T ([facility] ) Oxygen saturation in Arterial blood by Pulse oximetry 92 % 92 % MEDENT ([facility] ) Systolic blood pressure 110 mm[Hg] 110 mm[Hg] M EDENT ([facility]) Diastolic blood pressure 78 mm[Hg] 78 mm[Hg] MEDENT ([facility]) Heart rate 90 /min 90 /min MEDENT ([facility]) Body temperature 97.1 [degF] 97.1 [degF] MEDENT ([facility] ) Body height 68 [in_i] 68 [in_i] MEDENT ([facility] ) 5'8" Body mass index (BMI) [Ratio] 39.3 kg/m2 39.3 k g/m2 MEDENT ([facility] ) Body weight 3334 [oz_av] 3334 [oz_av] JEFF ([facility]) Body height 68 [in_i] 68 [in_i] JFEF ([facility]) Body mass index (BMI) [Ratio] 31.7 kg/m2 31.7 k g/m2 JEFF ([facility]) Systolic blood pressure 121 mm[Hg] 121 mm[Hg] [facility] ([facility]) Diastolic blood pressure 85 mm[Hg] 85 mm[Hg] JEFF ([facility]) Diastolic blood pressure 85 mm[Hg] 85 mm[Hg] JEFF ([facility]) Body height 68 [in_i] 68 [in_i] JEFF ([facility]) Body mass index (BMI) [Ratio] 31.7 kg/m2 31.7 k g/m2 JEFF ([facility]) Systolic blood pressure 121 mm[Hg] 121 mm[Hg] A THENA ([facility]) Body weight 3334 [oz_av] 3334 [oz_av] JEFF ([facility]) Diastolic blood pressure 85 mm[Hg] 85 mm[Hg] JEFF ([facility]) Body mass index (BMI) [Ratio] 31.7 kg/m2 31.7 k g/m2 JEFF ([facility]) Systolic blood pressure 121 mm[Hg] 121 mm[Hg] [facility]) Body weight 3334 [oz_av] 3334 [oz_av] JEFF ([facility]) Body height 68 [in_i] 68 [in_i] JEFF ([facility]) Body mass index (BMI) [Ratio] 31.7 kg/m2 31.7 k g/m2 JEFF ([facility]) Diastolic blood pressure 85 mm[Hg] 85 mm[Hg] JEFF ([facility]) Body height 68 [in_i] 68 [in_i] JEFF ([facility]) Systolic blood pressure 121 mm[Hg] 121 mm[Hg] A [facility] ([facility]) Body weight 3334 [oz_av] 3334 [oz_av] JEFF ([facility]) Diastolic blood pressure 85 mm[Hg] 85 mm[Hg] JEFF ([facility]) Body height 68 [in_i] 68 [in_i] JEFF ([facility]) Body mass index (BMI) [Ratio] 31.7 kg/m2 31.7 k g/m2 JEFF ([facility]) Systolic blood pressure 121 mm[Hg] 121 mm[Hg] A [facility] ([facility]) Body weight 3334 [oz_av] 3334 [oz_av] JEFF ([facility]) Diastolic blood pressure 85 mm[Hg] 85 mm[Hg] JEFF ([facility]) Body height 68 [in_i] 68 [in_i] JEFF ([facility]) Body mass index (BMI) [Ratio] 31.7 kg/m2 31.7 k g/m2 JEFF ([facility]) Systolic blood pressure 121 mm[Hg] 121 mm[Hg] A [facility] ([facility]) Body weight 3334 [oz_av] 3334 [oz_av] JEFF ([facility]) Diastolic blood pressure 85 mm[Hg] 85 mm[Hg] JEFF ([facility]) Body height 68 [in_i] 68 [in_i] JEFF ([facility]) Body mass index (BMI) [Ratio] 31.7 kg/m2 31.7 k g/m2 JEFF ([facility]) Systolic blood pressure 121 mm[Hg] 121 mm[Hg] A THENA ([facility]) Body weight 3334 [oz_av] 3334 [oz_av] JEFF ([facility]) Diastolic blood pressure 85 mm[Hg] 85 mm[Hg] JEFF ([facility]) Body height 68 [in_i] 68 [in_i] JEFF ([facility]) Body mass index (BMI) [Ratio] 31.7 kg/m2 31.7 k g/m2 JEFF ([facility]) Systolic blood pressure 121 mm[Hg] 121 mm[Hg] A [facility] ([facility]) Body weight 3334 [oz_av] 3334 [oz_av] JEFF ([facility]) Diastolic blood pressure 85 mm[Hg] 85 mm[Hg] JEFF ([facility]) Body height 68 [in_i] 68 [in_i] JEFF ([facility]) Systolic blood pressure 121 mm[Hg] 121 mm[Hg] A [facility] ([facility]) Body mass index (BMI) [Ratio] 31.7 kg/m2 31.7 k g/m2 JEFF ([facility]) Body weight 3334 [oz_av] 3334 [oz_av] JEFF ([facility]) Diastolic blood pressure 85 mm[Hg] 85 mm[Hg] JEFF ([facility]) Body height 68 [in_i] 68 [in_i] JEFF ([facility]) Body mass index (BMI) [Ratio] 31.7 kg/m2 31.7 k g/m2 JEFF ([facility]) Systolic blood pressure 121 mm[Hg] 121 mm[Hg] A THENA ([facility]) Body weight 3334 [oz_av] 3334 [oz_av] JEFF ([facility]) Diastolic blood pressure 85 mm[Hg] 85 mm[Hg] JEFF ([facility]) Body height 68 [in_i] 68 [in_i] JEFF ([facility]) Body mass index (BMI) [Ratio] 31.7 kg/m2 31.7 k g/m2 JEFF ([facility]) Systolic blood pressure 121 mm[Hg] 121 mm[Hg] A THENA ([facility]) Body weight 3334 [oz_av] 3334 [oz_av] JEFF ([facility]) Diastolic blood pressure 85 mm[Hg] 85 mm[Hg] JEFF ([facility]) Body height 68 [in_i] 68 [in_i] JEFF ([facility]) Body mass index (BMI) [Ratio] 31.7 kg/m2 31.7 k g/m2 JEFF ([facility]) Systolic blood pressure 121 mm[Hg] 121 mm[Hg] A THENA ([facility]) Body weight 3334 [oz_av] 3334 [oz_av] JEFF ([facility]) Body weight 260.6 [lb_av] 260.6 [lb_av] eCW1 ([facility]) Body height 68 [in_i] 68 [in_i] eCW1 ([facility]) Body mass index (BMI) [Ratio] 39.62 kg/m2 39.62 kg/m2 W1 ([facility]) Body height 0.00 in Normal (applies to non-numeric resu lts) 0.00 in [facility] ([facility]) Body weight Measured 0.00 lbs Normal (applies to n on-numeric results) 0.00 lbs [facility] ([facility]) Body mass index (BMI) [Ratio] 0.00 kg/m2 No rmal (applies to non-numeric results) 0.00 kg/m2 [facility] ([facility]) Systolic blood pressure 0 mm[Hg] Normal (applies t o non-numeric results) 0 mm[Hg] [facility] ([facility]) Diastolic blood pressure 0 mm[Hg] Normal (applies to non-numeric results) 0 mm[Hg] [facility] ([facility]) Diastolic blood pressure 84 mm[Hg] 84 mm[Hg] MEDENT ([facility] ) Heart rate 87 /min 87 /min MEDENT ([facility] ) Body temperature 96.4 [degF] 96.4 [degF] MEDENT ([facility]) Body weight 263.31 [lb_av] 263.31 [lb_av] MEDEN T ([facility] ) Body mass index (BMI) [Ratio] 40.0 kg/m2 40.0 k g/m2 MEDENT ([facility] ) Oxygen saturation in Arterial blood by Pulse oximetry 97 % 97 % MEDENT ([facility] ) Systolic blood pressure 122 mm[Hg] 122 mm[Hg] M EDENT ([facility] ) Body height 68 [in_i] 68 [in_i] MEDENT ([facility] ) 5'8" Body height 68 [in_i] 68 [in_i] JEFF ([facility]) Body mass index (BMI) [Ratio] 40 kg/m2 40 kg/ m2 JEFF ([facility]) Systolic blood pressure 115 mm[Hg] 115 mm[Hg] A [facility] ([facility]) Body weight 4208 [oz_av] 4208 [oz_av] JEFF ([facility]) Diastolic blood pressure 78 mm[Hg] 78 mm[Hg] JEFF ([facility]) Diastolic blood pressure 78 mm[Hg] 78 mm[Hg] JEFF ([facility]) Body height 68 [in_i] 68 [in_i] JEFF ([facility]) Body mass index (BMI) [Ratio] 40 kg/m2 40 kg/ m2 JEFF ([facility]) Systolic blood pressure 115 mm[Hg] 115 mm[Hg] [facility] ([facility]) Body weight 4208 [oz_av] 4208 [oz_av] JEFF ([facility]) Diastolic blood pressure 78 mm[Hg] 78 mm[Hg] JEFF ([facility]) Body height 68 [in_i] 68 [in_i] JEFF ([facility]) Body mass index (BMI) [Ratio] 40 kg/m2 40 kg/ m2 JEFF ([facility]) Systolic blood pressure 115 mm[Hg] 115 mm[Hg] [facility] ([facility]) Body weight 4208 [oz_av] 4208 [oz_av] JEFF ([facility]) Body height 68 [in_i] 68 [in_i] JEFF ([facility]) Body mass index (BMI) [Ratio] 40 kg/m2 40 kg/ m2 JEFF ([facility]) Systolic blood pressure 115 mm[Hg] 115 mm[Hg] [facility] ([facility]) Body weight 4208 [oz_av] 4208 [oz_av] JEFF ([facility]) Diastolic blood pressure 78 mm[Hg] 78 mm[Hg] JEFF ([facility]) Diastolic blood pressure 78 mm[Hg] 78 mm[Hg] JEFF ([facility]) Body height 68 [in_i] 68 [in_i] JEFF ([facility]) Body mass index (BMI) [Ratio] 40 kg/m2 40 kg/ m2 JEFF ([facility]) Systolic blood pressure 115 mm[Hg] 115 mm[Hg] A [facility] ([facility]) Body weight 4208 [oz_av] 4208 [oz_av] JEFF ([facility]) Body mass index (BMI) [Ratio] 40 kg/m2 40 kg/ m2 JEFF ([facility]) Body height 68 [in_i] 68 [in_i] JEFF ([facility]) Diastolic blood pressure 78 mm[Hg] 78 mm[Hg] JEFF ([facility]) Systolic blood pressure 115 mm[Hg] 115 mm[Hg] A [facility] ([facility]) Body weight 4208 [oz_av] 4208 [oz_av] JEFF ([facility]) Diastolic blood pressure 78 mm[Hg] 78 mm[Hg] JEFF ([facility]) Body height 68 [in_i] 68 [in_i] JEFF ([facility]) Body mass index (BMI) [Ratio] 40 kg/m2 40 kg/ m2 JEFF ([facility]) Systolic blood pressure 115 mm[Hg] 115 mm[Hg] A [facility] ([facility]) Body weight 4208 [oz_av] 4208 [oz_av] JEFF ([facility]) Diastolic blood pressure 78 mm[Hg] 78 mm[Hg] JEFF ([facility]) Body height 68 [in_i] 68 [in_i] JEFF ([facility]) Body mass index (BMI) [Ratio] 40 kg/m2 40 kg/ m2 JEFF ([facility]) Systolic blood pressure 115 mm[Hg] 115 mm[Hg] A [facility] ([facility]) Body weight 4208 [oz_av] 4208 [oz_av] JEFF ([facility]) Diastolic blood pressure 78 mm[Hg] 78 mm[Hg] JEFF ([facility]) Body height 68 [in_i] 68 [in_i] JEFF ([facility]) Body mass index (BMI) [Ratio] 40 kg/m2 40 kg/ m2 JEFF ([facility]) Systolic blood pressure 115 mm[Hg] 115 mm[Hg] A THENA ([facility]) Body weight 4208 [oz_av] 4208 [oz_av] JEFF ([facility]) Diastolic blood pressure 78 mm[Hg] 78 mm[Hg] JEFF ([facility]) Body height 68 [in_i] 68 [in_i] JEFF ([facility]) Body mass index (BMI) [Ratio] 40 kg/m2 40 kg/ m2 JEFF ([facility]) Systolic blood pressure 115 mm[Hg] 115 mm[Hg] A THENA ([facility]) Body weight 4208 [oz_av] 4208 [oz_av] JEFF ([facility]) Diastolic blood pressure 78 mm[Hg] 78 mm[Hg] JEFF ([facility]) Body height 68 [in_i] 68 [in_i] JEFF ([facility]) Body mass index (BMI) [Ratio] 40 kg/m2 40 kg/ m2 JEFF ([facility]) Systolic blood pressure 115 mm[Hg] 115 mm[Hg] A [facility] ([facility]) Body weight 4208 [oz_av] 4208 [oz_av] JEFF ([facility]) Diastolic blood pressure 78 mm[Hg] 78 mm[Hg] JEFF ([facility]) Body height 68 [in_i] 68 [in_i] JEFF ([facility]) Body mass index (BMI) [Ratio] 40 kg/m2 40 kg/ m2 JEFF ([facility]) Systolic blood pressure 115 mm[Hg] 115 mm[Hg] A THENA ([facility]) Body weight 4208 [oz_av] 4208 [oz_av] JEFF ([facility]) Diastolic blood pressure 78 mm[Hg] 78 mm[Hg] JEFF ([facility]) Body height 68 [in_i] 68 [in_i] JEFF ([facility]) Body mass index (BMI) [Ratio] 40 kg/m2 40 kg/ m2 JEFF ([facility]) Systolic blood pressure 115 mm[Hg] 115 mm[Hg] A THENA ([facility]) Body weight 4208 [oz_av] 4208 [oz_av] JEFF ([facility]) Diastolic blood pressure 78 mm[Hg] 78 mm[Hg] JEFF ([facility]) Body height 68 [in_i] 68 [in_i] JEFF ([facility]) Body mass index (BMI) [Ratio] 40 kg/m2 40 kg/ m2 JEFF ([facility]) Systolic blood pressure 115 mm[Hg] 115 mm[Hg] A THENA ([facility]) Body weight 4208 [oz_av] 4208 [oz_av] JEFF ([facility]) Systolic blood pressure 125 mm[Hg] 125 mm[Hg] M EDENT ([facility] Diastolic blood pressure 83 mm[Hg] 83 mm[Hg] MEDENT ([facility] Body height 68 [in_i] 68 [in_i] MEDENT ([facility] 5'8" Body weight 260.00 [lb_av] 260.00 [lb_av] MEDEN T ([facility] Heart rate 92 /min 92 /min MEDENT ([facility] Body mass index (BMI) [Ratio] 39.5 kg/m2 39.5 k g/m2 MEDENT ([facility] Body height 0.00 in Normal (applies to non-numeric resu lts) 0.00 in [facility] ([facility]) Body weight Measured 0.00 lbs Normal (applies to n on-numeric results) 0.00 lbs [facility] ([facility]) Body mass index (BMI) [Ratio] 0.00 kg/m2 No rmal (applies to non-numeric results) 0.00 kg/m2 [facility] ([facility]) Systolic blood pressure 0 mm[Hg] Normal (applies t o non-numeric results) 0 mm[Hg] [facility] ([facility]) Diastolic blood pressure 0 mm[Hg] Normal (applies to non-numeric results) 0 mm[Hg] [facility] ([facility]) Diastolic blood pressure 83 mm[Hg] 83 mm[Hg] [place] ([facility]) Body height 68 [in_i] 68 [in_i] [place] ([facility]) Body mass index (BMI) [Ratio] 39.6 kg/m2 39.6 k g/m2 JEFF ([facility]) Systolic blood pressure 125 mm[Hg] 125 mm[Hg] A [facility] ([facility]) Body weight 4164 [oz_av] 4164 [oz_av] JEFF ([facility]) Diastolic blood pressure 83 mm[Hg] 83 mm[Hg] [place] ([facility]) Body height 68 [in_i] 68 [in_i] JEFF ([facility]) Body mass index (BMI) [Ratio] 39.6 kg/m2 39.6 k g/m2 JEFF ([facility]) Systolic blood pressure 125 mm[Hg] 125 mm[Hg] A [facility] ([facility]) Body weight 4164 [oz_av] 4164 [oz_av] JEFF ([facility]) Body mass index (BMI) [Ratio] 39.6 kg/m2 39.6 k g/m2 JEFF ([facility]) Diastolic blood pressure 83 mm[Hg] 83 mm[Hg] JEFF ([facility]) Body height 68 [in_i] 68 [in_i] JEFF ([facility]) Systolic blood pressure 125 mm[Hg] 125 mm[Hg] [facility]) Body weight 4164 [oz_av] 4164 [oz_av] JEFF ([facility]) Diastolic blood pressure 83 mm[Hg] 83 mm[Hg] JEFF ([facility]) Systolic blood pressure 125 mm[Hg] 125 mm[Hg] [facility] ([facility]) Body weight 4164 [oz_av] 4164 [oz_av] JEFF ([facility]) Body height 68 [in_i] 68 [in_i] JEFF ([facility]) Body mass index (BMI) [Ratio] 39.6 kg/m2 39.6 k g/m2 JEFF ([facility]) Body height 68 [in_i] 68 [in_i] JEFF ([facility]) Body weight 4164 [oz_av] 4164 [oz_av] JEFF ([facility]) Diastolic blood pressure 83 mm[Hg] 83 mm[Hg] JEFF ([facility]) Body mass index (BMI) [Ratio] 39.6 kg/m2 39.6 k g/m2 JEFF ([facility]) Systolic blood pressure 125 mm[Hg] 125 mm[Hg] A THENA ([facility]) Diastolic blood pressure 83 mm[Hg] 83 mm[Hg] JEFF ([facility]) Body height 68 [in_i] 68 [in_i] JEFF ([facility]) Body mass index (BMI) [Ratio] 39.6 kg/m2 39.6 k g/m2 JEFF ([facility]) Systolic blood pressure 125 mm[Hg] 125 mm[Hg] A THENA ([facility]) Body weight 4164 [oz_av] 4164 [oz_av] JEFF ([facility]) Body mass index (BMI) [Ratio] 39.6 kg/m2 39.6 k g/m2 JEFF ([facility]) Systolic blood pressure 125 mm[Hg] 125 mm[Hg] [facility]) Body weight 4164 [oz_av] 4164 [oz_av] JEFF ([facility]) Diastolic blood pressure 83 mm[Hg] 83 mm[Hg] JEFF ([facility]) Body height 68 [in_i] 68 [in_i] JEFF ([facility]) Diastolic blood pressure 83 mm[Hg] 83 mm[Hg] JEFF ([facility]) Body height 68 [in_i] 68 [in_i] JEFF ([facility]) Body mass index (BMI) [Ratio] 39.6 kg/m2 39.6 k g/m2 JEFF ([facility]) Systolic blood pressure 125 mm[Hg] 125 mm[Hg] A THENA [facility] [facility]) Body weight 4164 [oz_av] 4164 [oz_av] JEFF ([facility]) Diastolic blood pressure 83 mm[Hg] 83 mm[Hg] JEFF ([facility]) Body height 68 [in_i] 68 [in_i] JEFF ([facility]) Body mass index (BMI) [Ratio] 39.6 kg/m2 39.6 k g/m2 JEFF ([facility]) Systolic blood pressure 125 mm[Hg] 125 mm[Hg] A THENA ([facility]) Body weight 4164 [oz_av] 4164 [oz_av] JEFF ([facility]) Diastolic blood pressure 83 mm[Hg] 83 mm[Hg] JEFF ([facility]) Body height 68 [in_i] 68 [in_i] JEFF ([facility]) Body mass index (BMI) [Ratio] 39.6 kg/m2 39.6 k g/m2 JEFF ([facility]) Systolic blood pressure 125 mm[Hg] 125 mm[Hg] A THENA ([facility]) Body weight 4164 [oz_av] 4164 [oz_av] JEFF ([facility]) Diastolic blood pressure 83 mm[Hg] 83 mm[Hg] JEFF ([facility]) Body height 68 [in_i] 68 [in_i] JEFF ([facility]) Body mass index (BMI) [Ratio] 39.6 kg/m2 39.6 k g/m2 JEFF ([facility]) Systolic blood pressure 125 mm[Hg] 125 mm[Hg] A [facility] ([facility]) Body weight 4164 [oz_av] 4164 [oz_av] JEFF ([facility]) Diastolic blood pressure 83 mm[Hg] 83 mm[Hg] JEFF ([facility]) Body height 68 [in_i] 68 [in_i] JEFF ([facility]) Body mass index (BMI) [Ratio] 39.6 kg/m2 39.6 k g/m2 JEFF ([facility]) Systolic blood pressure 125 mm[Hg] 125 mm[Hg] A [facility] ([facility]) Body weight 4164 [oz_av] 4164 [oz_av] JEFF ([facility]) Diastolic blood pressure 83 mm[Hg] 83 mm[Hg] JEFF ([facility]) Body height 68 [in_i] 68 [in_i] JEFF ([facility]) Body mass index (BMI) [Ratio] 39.6 kg/m2 39.6 k g/m2 JEFF ([facility]) Systolic blood pressure 125 mm[Hg] 125 mm[Hg] A THENA ([facility]) Body weight 4164 [oz_av] 4164 [oz_av] JEFF ([facility]) Diastolic blood pressure 83 mm[Hg] 83 mm[Hg] JEFF ([facility]) Body height 68 [in_i] 68 [in_i] JEFF ([facility]) Body mass index (BMI) [Ratio] 39.6 kg/m2 39.6 k g/m2 JEFF ([facility]) Systolic blood pressure 125 mm[Hg] 125 mm[Hg] A [facility] ([facility]) Body weight 4164 [oz_av] 4164 [oz_av] JEFF ([facility]) Diastolic blood pressure 83 mm[Hg] 83 mm[Hg] JEFF ([facility]) Body height 68 [in_i] 68 [in_i] JEFF ([facility]) Body mass index (BMI) [Ratio] 39.6 kg/m2 39.6 k g/m2 JEFF ([facility]) Systolic blood pressure 125 mm[Hg] 125 mm[Hg] A THENA ([facility]) Body weight 4164 [oz_av] 4164 [oz_av] JEFF ([facility]) Body weight Measured 0.00 lbs Normal (applies to n on-numeric results) 0.00 lbs [facility] ([facility]) Body mass index (BMI) [Ratio] 0.00 kg/m2 No rmal (applies to non-numeric results) 0.00 kg/m2 [facility] ([facility]) Systolic blood pressure 142 mm[Hg] Normal (applies t o non-numeric results) 142 mm[Hg] [facility] ([facility]) Diastolic blood pressure 78 mm[Hg] Normal (applies to non-numeric results) 78 mm[Hg] [facility] ([facility]) Body height 0.00 in Normal (applies to non-numeric resu lts) 0.00 in [facility] ([facility]) Systolic blood pressure 126 mm[Hg] 126 mm[Hg] M EDENT ([facility] ) Diastolic blood pressure 70 mm[Hg] 70 mm[Hg] MEDENT ([facility] ) Heart rate 77 /min 77 /min MEDENT ([facility]) Oxygen saturation in Arterial blood by Pulse oximetry 98 % 98 % MEDENT ([facility] ) Body temperature 97.8 [degF] 97.8 [degF] MEDENT ([facility] ) Body height 68 [in_i] 68 [in_i] MEDENT ([facility] ) 5'8" Body weight 268.44 [lb_av] 268.44 [lb_av] MEDEN T ([facility] ) Body mass index (BMI) [Ratio] 40.8 kg/m2 40.8 k g/m2 MEDENT ([facility] ) Diastolic blood pressure 88 mm[Hg] 88 mm[Hg] JEFF ([facility]) Body height 68 [in_i] 68 [in_i] JEFF ([facility]) Body mass index (BMI) [Ratio] 40 kg/m2 40 kg/ m2 JEFF ([facility]) Systolic blood pressure 124 mm[Hg] 124 mm[Hg] A [facility] ([facility]) Body weight 4214 [oz_av] 4214 [oz_av] JEFF ([facility]) Diastolic blood pressure 88 mm[Hg] 88 mm[Hg] JEFF ([facility]) Body height 68 [in_i] 68 [in_i] JEFF ([facility]) Body mass index (BMI) [Ratio] 40 kg/m2 40 kg/ m2 JEFF ([facility]) Systolic blood pressure 124 mm[Hg] 124 mm[Hg] A [facility] ([facility]) Body weight 4214 [oz_av] 4214 [oz_av] JEFF ([facility]) Diastolic blood pressure 88 mm[Hg] 88 mm[Hg] JEFF ([facility]) Body height 68 [in_i] 68 [in_i] JEFF ([facility]) Body mass index (BMI) [Ratio] 40 kg/m2 40 kg/ m2 JEFF ([facility]) Systolic blood pressure 124 mm[Hg] 124 mm[Hg] A THENA ([facility]) Body weight 4214 [oz_av] 4214 [oz_av] JEFF ([facility]) Diastolic blood pressure 88 mm[Hg] 88 mm[Hg] JEFF ([facility]) Body height 68 [in_i] 68 [in_i] JEFF ([facility]) Body mass index (BMI) [Ratio] 40 kg/m2 40 kg/ m2 JEFF ([facility]) Systolic blood pressure 124 mm[Hg] 124 mm[Hg] A THEN ([facility]) Body weight 4214 [oz_av] 4214 [oz_av] JEFF ([facility]) Diastolic blood pressure 88 mm[Hg] 88 mm[Hg] JEFF ([facility]) Body height 68 [in_i] 68 [in_i] JEFF ([facility]) Body mass index (BMI) [Ratio] 40 kg/m2 40 kg/ m2 JEFF ([facility]) Systolic blood pressure 124 mm[Hg] 124 mm[Hg] A [facility] ([facility]) Body weight 4214 [oz_av] 4214 [oz_av] JEFF ([facility]) Diastolic blood pressure 88 mm[Hg] 88 mm[Hg] JEFF ([facility]) Body height 68 [in_i] 68 [in_i] JEFF ([facility]) Body mass index (BMI) [Ratio] 40 kg/m2 40 kg/ m2 JEFF ([facility]) Systolic blood pressure 124 mm[Hg] 124 mm[Hg] A [facility] ([facility]) Body weight 4214 [oz_av] 4214 [oz_av] JEFF ([facility]) Diastolic blood pressure 88 mm[Hg] 88 mm[Hg] JEFF ([facility]) Body height 68 [in_i] 68 [in_i] JEFF ([facility]) Body weight 4214 [oz_av] 4214 [oz_av] JEFF ([facility]) Body mass index (BMI) [Ratio] 40 kg/m2 40 kg/ m2 JEFF ([facility]) Systolic blood pressure 124 mm[Hg] 124 mm[Hg] A THENA ([facility]) Diastolic blood pressure 88 mm[Hg] 88 mm[Hg] JEFF ([facility]) Body height 68 [in_i] 68 [in_i] JEFF ([facility]) Body mass index (BMI) [Ratio] 40 kg/m2 40 kg/ m2 JEFF ([facility]) Systolic blood pressure 124 mm[Hg] 124 mm[Hg] A THENA ([facility]) Body weight 4214 [oz_av] 4214 [oz_av] JEFF ([facility]) Diastolic blood pressure 88 mm[Hg] 88 mm[Hg] JEFF ([facility]) Body mass index (BMI) [Ratio] 40 kg/m2 40 kg/ m2 JEFF ([facility]) Body height 68 [in_i] 68 [in_i] JEFF ([facility]) Systolic blood pressure 124 mm[Hg] 124 mm[Hg] A [facility] ([facility]) Body weight 4214 [oz_av] 4214 [oz_av] JEFF ([facility]) Diastolic blood pressure 88 mm[Hg] 88 mm[Hg] JEFF ([facility]) Body height 68 [in_i] 68 [in_i] JEFF ([facility]) Body mass index (BMI) [Ratio] 40 kg/m2 40 kg/ m2 JEFF ([facility]) Systolic blood pressure 124 mm[Hg] 124 mm[Hg] A [facility] ([facility]) Body weight 4214 [oz_av] 4214 [oz_av] JEFF ([facility]) Diastolic blood pressure 88 mm[Hg] 88 mm[Hg] JEFF ([facility]) Body height 68 [in_i] 68 [in_i] JEFF ([facility]) Body mass index (BMI) [Ratio] 40 kg/m2 40 kg/ m2 JEFF ([facility]) Systolic blood pressure 124 mm[Hg] 124 mm[Hg] A THENA ([facility]) Body weight 4214 [oz_av] 4214 [oz_av] JEFF ([facility]) Diastolic blood pressure 88 mm[Hg] 88 mm[Hg] JEFF ([facility]) Body height 68 [in_i] 68 [in_i] JEFF ([facility]) Body mass index (BMI) [Ratio] 40 kg/m2 40 kg/ m2 JEFF ([facility]) Systolic blood pressure 124 mm[Hg] 124 mm[Hg] A THENA ([facility]) Body weight 4214 [oz_av] 4214 [oz_av] JEFF ([facility]) Diastolic blood pressure 88 mm[Hg] 88 mm[Hg] JEFF ([facility]) Body height 68 [in_i] 68 [in_i] JEFF ([facility]) Body mass index (BMI) [Ratio] 40 kg/m2 40 kg/ m2 JEFF ([facility]) Systolic blood pressure 124 mm[Hg] 124 mm[Hg] A THENA ([facility]) Body weight 4214 [oz_av] 4214 [oz_av] JEFF ([facility]) Body weight 4214 [oz_av] 4214 [oz_av] JEFF ([facility]) Diastolic blood pressure 88 mm[Hg] 88 mm[Hg] JEFF ([facility]) Body height 68 [in_i] 68 [in_i] JEFF ([facility]) Body mass index (BMI) [Ratio] 40 kg/m2 40 kg/ m2 JEFF ([facility]) Systolic blood pressure 124 mm[Hg] 124 mm[Hg] A [facility] ([facility]) Diastolic blood pressure 88 mm[Hg] 88 mm[Hg] JEFF ([facility]) Body height 68 [in_i] 68 [in_i] JEFF ([facility]) Body mass index (BMI) [Ratio] 40 kg/m2 40 kg/ m2 JEFF ([facility]) Systolic blood pressure 124 mm[Hg] 124 mm[Hg] A THENA ([facility]) Body weight 4214 [oz_av] 4214 [oz_av] JEFF ([facility]) Diastolic blood pressure 88 mm[Hg] 88 mm[Hg] JEFF ([facility]) Body height 68 [in_i] 68 [in_i] JEFF ([facility]) Body mass index (BMI) [Ratio] 40 kg/m2 40 kg/ m2 JEFF ([facility]) Systolic blood pressure 124 mm[Hg] 124 mm[Hg] A THENA ([facility]) Body weight 4214 [oz_av] 4214 [oz_av] JEFF ([facility]) Diastolic blood pressure 88 mm[Hg] 88 mm[Hg] JEFF ([facility]) Body height 68 [in_i] 68 [in_i] JEFF ([facility]) Body mass index (BMI) [Ratio] 40 kg/m2 40 kg/ m2 JEFF ([facility]) Systolic blood pressure 124 mm[Hg] 124 mm[Hg] A THENA ([facility]) Body weight 4214 [oz_av] 4214 [oz_av] JEFF ([facility]) Diastolic blood pressure 83 mm[Hg] 83 mm[Hg] JEFF ([facility]) Body height 68 [in_i] 68 [in_i] JEFF ([facility]) Body mass index (BMI) [Ratio] 40.31 kg/m2 40.31 kg/m2 JEFF ([facility]) Systolic blood pressure 134 mm[Hg] 134 mm[Hg] A THENA ([facility]) Body weight 4226.08 [oz_av] 4226.08 [oz_av] ATH ALVARO ([facility]) Diastolic blood pressure 83 mm[Hg] 83 mm[Hg] JEFF ([facility]) Body height 68 [in_i] 68 [in_i] JEFF ([facility]) Body mass index (BMI) [Ratio] 40.31 kg/m2 40.31 kg/m2 JEFF ([facility]) Systolic blood pressure 134 mm[Hg] 134 mm[Hg] A THENA ([facility]) Body weight 4226.08 [oz_av] 4226.08 [oz_av] ATH ALVARO ([facility]) Diastolic blood pressure 83 mm[Hg] 83 mm[Hg] JEFF ([facility]) Body weight 4226.08 [oz_av] 4226.08 [oz_av] ATH ALVARO ([facility]) Body height 68 [in_i] 68 [in_i] JEFF ([facility]) Body mass index (BMI) [Ratio] 40.31 kg/m2 40.31 kg/m2 JEFF ([facility]) Systolic blood pressure 134 mm[Hg] 134 mm[Hg] A THENA ([facility]) Diastolic blood pressure 83 mm[Hg] 83 mm[Hg] JEFF ([facility]) Body height 68 [in_i] 68 [in_i] JEFF ([facility]) Body mass index (BMI) [Ratio] 40.31 kg/m2 40.31 kg/m2 JEFF ([facility]) Systolic blood pressure 134 mm[Hg] 134 mm[Hg] A THENA ([facility]) Body weight 4226.08 [oz_av] 4226.08 [oz_av] ATH ALVARO ([facility]) Diastolic blood pressure 83 mm[Hg] 83 mm[Hg] JEFF ([facility]) Body height 68 [in_i] 68 [in_i] JEFF ([facility]) Body mass index (BMI) [Ratio] 40.31 kg/m2 40.31 kg/m2 JEFF ([facility]) Systolic blood pressure 134 mm[Hg] 134 mm[Hg] A THENA ([facility]) Body weight 4226.08 [oz_av] 4226.08 [oz_av] ATH ALVARO ([facility]) Body weight 4226.08 [oz_av] 4226.08 [oz_av] ATH ALVARO ([facility]) Body height 68 [in_i] 68 [in_i] JEFF ([facility]) Body mass index (BMI) [Ratio] 40.31 kg/m2 40.31 kg/m2 JEFF ([facility]) Systolic blood pressure 134 mm[Hg] 134 mm[Hg] A [facility] ([facility]) Diastolic blood pressure 83 mm[Hg] 83 mm[Hg] JEFF ([facility]) Systolic blood pressure 134 mm[Hg] 134 mm[Hg] A THENA ([facility]) Body weight 4226.08 [oz_av] 4226.08 [oz_av] ATH ALVARO ([facility]) Diastolic blood pressure 83 mm[Hg] 83 mm[Hg] JEFF ([facility]) Body height 68 [in_i] 68 [in_i] JEFF ([facility]) Body mass index (BMI) [Ratio] 40.31 kg/m2 40.31 kg/m2 JEFF ([facility]) Diastolic blood pressure 83 mm[Hg] 83 mm[Hg] JEFF ([facility]) Body height 68 [in_i] 68 [in_i] JEFF ([facility]) Body mass index (BMI) [Ratio] 40.31 kg/m2 40.31 kg/m2 JEFF ([facility]) Systolic blood pressure 134 mm[Hg] 134 mm[Hg] A [facility] ([facility]) Body weight 4226.08 [oz_av] 4226.08 [oz_av] ATH ALVARO ([facility]) Diastolic blood pressure 83 mm[Hg] 83 mm[Hg] JEFF ([facility]) Body height 68 [in_i] 68 [in_i] JEFF ([facility]) Body mass index (BMI) [Ratio] 40.31 kg/m2 40.31 kg/m2 JEFF ([facility]) Systolic blood pressure 134 mm[Hg] 134 mm[Hg] A [facility] ([facility]) Body weight 4226.08 [oz_av] 4226.08 [oz_av] ATH ALVARO ([facility]) Body mass index (BMI) [Ratio] 40.31 kg/m2 40.31 kg/m2 JEFF ([facility]) Systolic blood pressure 134 mm[Hg] 134 mm[Hg] A [facility] ([facility]) Body weight 4226.08 [oz_av] 4226.08 [oz_av] ATH ALVARO ([facility]) Diastolic blood pressure 83 mm[Hg] 83 mm[Hg] JEFF ([facility]) Body height 68 [in_i] 68 [in_i] JEFF ([facility]) Diastolic blood pressure 83 mm[Hg] 83 mm[Hg] JEFF ([facility]) Body height 68 [in_i] 68 [in_i] JEFF ([facility]) Body mass index (BMI) [Ratio] 40.31 kg/m2 40.31 kg/m2 JEFF ([facility]) Systolic blood pressure 134 mm[Hg] 134 mm[Hg] A [facility] ([facility]) Body weight 4226.08 [oz_av] 4226.08 [oz_av] ATH ALVARO ([facility]) Body height 0.00 in Normal (applies to non-numeric resu lts) 0.00 in [facility] ([facility]) Body weight Measured 0.00 lbs Normal (applies to n on-numeric results) 0.00 lbs [facility] ([facility]) Body mass index (BMI) [Ratio] 0.00 kg/m2 No rmal (applies to non-numeric results) 0.00 kg/m2 [facility] ([facility]) Systolic blood pressure 0 mm[Hg] Normal (applies t o non-numeric results) 0 mm[Hg] [facility] ([facility]) Diastolic blood pressure 0 mm[Hg] Normal (applies to non-numeric results) 0 mm[Hg] [facility] ([facility]) Body temperature 97.7 [degF] 97.7 [degF] MEDENT ([facility] ) Body height 68 [in_i] 68 [in_i] MEDENT ([facility] ) 5'8" Body weight 260.00 [lb_av] 260.00 [lb_av] MEDEN T ([facility] ) Body mass index (BMI) [Ratio] 39.5 kg/m2 39.5 k g/m2 MEDENT ([facility] ) Patient Treatment Plan of Care Planned Activity Planned Date Details Description Data Source (s) Alcohol Prep Pads 06/20/2021 12:00:00 AM EDT JEFF ([facility]) ziprasidone 60 MG Oral Capsule JEFF ([facility]) Ergocalciferol 77359 UNT Oral Capsule JEFF ([facility]) 0.5 ML dulaglutide 1.5 MG/ML Auto-Injector [Trulicity] JEFF ([facility]) Triamcinolone Acetonide 1 MG/ML Topical Cream JEFF ([facility]) Trazodone Hydrochloride 50 MG Oral Tablet JEFF ([facility]) Steglatro 5 mg tablet JEFF ([facility]) Simvastatin 10 MG Oral Tablet JEFF ([facility]) Docusate Sodium 50 MG / sennosides, FPC 8.6 MG Oral Tablet JEFF ([facility]) sennosides 8.6 mg-docusate sodium 50 mg capsule Take 2 capsules by oral route at bedtime. JEFF ([facility]) sennosides, FPC 8.6 MG Oral Tablet [Senna-Time] JEFF ([facility]) Propranolol Hydrochloride 20 MG Oral Tablet JEFF ([facility]) Prazosin 1 MG Oral Capsule A THENA ([facility]) OneTouch Verio test strips USE UP TO TWO TIMES A DAY DIRECTED JEFF ([facility]) OneTouch Verio Flex Meter AT [facility] ([facility]) OneTouch Delica Plus Lancet 33 gauge JEFF ([facility]) Ofloxacin 3 MG/ML Otic Solution JEFF ([facility]) Mirtazapine 45 MG Oral Tablet JEFF ([facility]) Mirtazapine 15 MG Oral Tablet JEFF ([facility]) lamotrigine 25 MG Oral Tablet JEFF ([facility]) lamotrigine 100 MG Oral Tablet JEFF ([facility]) Ketoconazole 20 MG/ML Medicated Shampoo JEFF ([facility]) Famotidine 20 MG Oral Tablet JEFF ([facility]) Docusate Sodium 100 MG Oral Capsule [DOK] JEFF ([facility]) Clonidine Hydrochloride 0.2 MG Oral Tablet JEFF ([facility]) Clonazepam 1 MG Oral Tablet JEFF ([facility]) Clonazepam 0.5 MG Disintegrating Oral Tablet JEFF ([facility]) Clindamycin 150 MG Oral Capsule JEFF ([facility]) Cephalexin 500 MG Oral Capsule JEFF ([facility]) cefdinir 300 MG Oral Capsule JEFF ([facility]) buspirone hydrochloride 7.5 MG Oral Tablet JEFF ([facility]) buspirone hydrochloride 15 MG Oral Tablet JEFF ([facility]) buspirone hydrochloride 10 MG Oral Tablet JEFF ([facility]) benztropine mesylate 0.5 MG Oral Tablet JEFF ([facility]) benzonatate 200 MG Oral Capsule JEFF ([facility]) Azithromycin 250 MG Oral Tablet JEFF ([facility]) Amitriptyline Hydrochloride 75 MG Oral Tablet JEFF ([facility]) Amitriptyline Hydrochloride 50 MG Oral Tablet JEFF ([facility]) lamotrigine 25 MG Oral Tablet JEFF ([facility]) lamotrigine 100 MG Oral Tablet JEFF ([facility]) Ketoconazole 20 MG/ML Medicated Shampoo JEFF ([facility]) Famotidine 20 MG Oral Tablet JEFF ([facility]) Docusate Sodium 100 MG Oral Capsule [DOK] JEFF ([facility]) Clonidine Hydrochloride 0.2 MG Oral Tablet JEFF ([facility]) Clonazepam 1 MG Oral Tablet JEFF ([facility]) Clonazepam 0.5 MG Disintegrating Oral Tablet JEFF ([facility]) Clindamycin 150 MG Oral Capsule JEFF ([facility]) Cephalexin 500 MG Oral Capsule JEFF ([facility]) cefdinir 300 MG Oral Capsule JEFF ([facility]) buspirone hydrochloride 7.5 MG Oral Tablet JEFF ([facility]) buspirone hydrochloride 15 MG Oral Tablet JEFF ([facility]) buspirone hydrochloride 10 MG Oral Tablet JEFF ([facility]) benztropine mesylate 0.5 MG Oral Tablet JEFF ([facility]) benzonatate 200 MG Oral Capsule JEFF ([facility]) BD Ultra-Fine Short Pen Needle 31 gauge x 5/16" USE ONCE DAILY JEFF ([facility]) Azithromycin 250 MG Oral Tablet JEFF ([facility]) Amitriptyline Hydrochloride 75 MG Oral Tablet JEFF ([facility]) Amitriptyline Hydrochloride 50 MG Oral Tablet JEFF ([facility]) Isopropyl Alcohol 0.7 ML/ML Medicated Pad JEFF ([facility]) Clindamycin 150 MG Oral Capsule JEFF ([facility]) Cephalexin 500 MG Oral Capsule JEFF ([facility]) cefdinir 300 MG Oral Capsule JEFF ([facility]) buspirone hydrochloride 7.5 MG Oral Tablet JEFF ([facility]) buspirone hydrochloride 15 MG Oral Tablet JEFF ([facility]) buspirone hydrochloride 10 MG Oral Tablet JEFF ([facility]) benztropine mesylate 0.5 MG Oral Tablet JEFF ([facility]) benzonatate 200 MG Oral Capsule JEFF ([facility]) BD Ultra-Fine Short Pen Needle 31 gauge x 5/16" USE ONCE DAILY JEFF ([facility]) Azithromycin 250 MG Oral Tablet JEFF ([facility]) Amitriptyline Hydrochloride 75 MG Oral Tablet JEFF ([facility]) Amitriptyline Hydrochloride 50 MG Oral Tablet JEFF ([facility]) Isopropyl Alcohol 0.7 ML/ML Medicated Pad JEFF ([facility]) ziprasidone 60 MG Oral Capsule JEFF ([facility]) Ergocalciferol [id number] UNT Oral Capsule JEFF ([facility]) 0.5 ML dulaglutide 1.5 MG/ML Auto-Injector [Trulicity] JEFF ([facility]) Triamcinolone Acetonide 1 MG/ML Topical Cream JEFF ([facility]) Steglatro 5 mg tablet JEFF ([facility]) Simvastatin 10 MG Oral Tablet JEFF ([facility]) Docusate Sodium 50 MG / sennosides, FPC 8.6 MG Oral Tablet JEFF ([facility]) sennosides 8.6 mg-docusate sodium 50 mg capsule Take 2 capsules by oral route at bedtime. JFEF ([facility]) sennosides, FPC 8.6 MG Oral Tablet [Senna-Time] JEFF ([facility]) Propranolol Hydrochloride 20 MG Oral Tablet JEFF ([facility]) Prazosin 1 MG Oral Capsule A THENJovan ([facility]) OneTouch Verio Flex Meter AT [facility] ([facility]) OneTouch Delica Plus Lancet 33 gauge JEFF ([facility]) Mirtazapine 45 MG Oral Tablet JEFF ([facility]) Mirtazapine 15 MG Oral Tablet JEFF ([facility]) lamotrigine 25 MG Oral Tablet JEFF ([facility]) lamotrigine 100 MG Oral Tablet JEFF ([facility]) Ketoconazole 20 MG/ML Medicated Shampoo JEFF ([facility]) Famotidine 20 MG Oral Tablet JEFF ([facility]) Docusate Sodium 100 MG Oral Capsule [DOK] JEFF ([facility]) Clonidine Hydrochloride 0.2 MG Oral Tablet JEFF ([facility]) Clonazepam 1 MG Oral Tablet JEFF ([facility]) Clonazepam 0.5 MG Oral Tablet JEFF ([facility]) Clonazepam 0.5 MG Disintegrating Oral Tablet JEFF ([facility]) Clindamycin 150 MG Oral Capsule JEFF ([facility]) cefdinir 300 MG Oral Capsule JEFF ([facility]) buspirone hydrochloride 7.5 MG Oral Tablet JEFF ([facility]) buspirone hydrochloride 15 MG Oral Tablet JEFF ([facility]) buspirone hydrochloride 10 MG Oral Tablet JEFF ([facility]) benztropine mesylate 0.5 MG Oral Tablet JEFF ([facility]) benzonatate 200 MG Oral Capsule JEFF ([facility]) Azithromycin 250 MG Oral Tablet JEFF ([facility]) Amitriptyline Hydrochloride 75 MG Oral Tablet JEFF ([facility]) Amitriptyline Hydrochloride 50 MG Oral Tablet JEFF ([facility]) Isopropyl Alcohol 0.7 ML/ML Medicated Pad JEFF ([facility]) ziprasidone 60 MG Oral Capsule JEFF ([facility]) Ergocalciferol 32617 UNT Oral Capsule JEFF ([facility]) 0.5 ML dulaglutide 1.5 MG/ML Auto-Injector [Trulicity] JEFF ([facility]) Triamcinolone Acetonide 1 MG/ML Topical Cream JEFF ([facility]) Steglatro 5 mg tablet JEFF ([facility]) Simvastatin 10 MG Oral Tablet JEFF ([facility]) Docusate Sodium 50 MG / sennosides, FPC 8.6 MG Oral Tablet JEFF ([facility]) sennosides 8.6 mg-docusate sodium 50 mg capsule Take 2 capsules by oral route at bedtime. JEFF ([facility]) sennosides, FPC 8.6 MG Oral Tablet [Senna-Time] JEFF ([facility]) Propranolol Hydrochloride 20 MG Oral Tablet JEFF ([facility]) Prazosin 1 MG Oral Capsule A THENA ([facility]) OneTouch Verio Flex Meter AT [facility] ([facility]) OneTouch Delica Plus Lancet 33 gauge JEFF ([facility]) Mirtazapine 45 MG Oral Tablet JEFF ([facility]) Mirtazapine 15 MG Oral Tablet JEFF ([facility]) lamotrigine 25 MG Oral Tablet JEFF ([facility]) lamotrigine 100 MG Oral Tablet JEFF ([facility]) Ketoconazole 20 MG/ML Medicated Shampoo JEFF ([facility]) Famotidine 20 MG Oral Tablet JEFF ([facility]) Docusate Sodium 100 MG Oral Capsule [DOK] JEFF ([facility]) Clonidine Hydrochloride 0.2 MG Oral Tablet JEFF ([facility]) Clonazepam 1 MG Oral Tablet JEFF ([facility]) Clonazepam 0.5 MG Oral Tablet JEFF ([facility]) Clonazepam 0.5 MG Disintegrating Oral Tablet JEFF ([facility]) Clindamycin 150 MG Oral Capsule JEFF ([facility]) cefdinir 300 MG Oral Capsule JEFF ([facility]) buspirone hydrochloride 7.5 MG Oral Tablet JEFF ([facility]) buspirone hydrochloride 15 MG Oral Tablet JEFF ([facility]) buspirone hydrochloride 10 MG Oral Tablet JEFF ([facility]) benztropine mesylate 0.5 MG Oral Tablet JEFF ([facility]) benzonatate 200 MG Oral Capsule JEFF ([facility]) Azithromycin 250 MG Oral Tablet JEFF ([facility]) Amitriptyline Hydrochloride 75 MG Oral Tablet JEFF ([facility]) Amitriptyline Hydrochloride 50 MG Oral Tablet JEFF ([facility]) Isopropyl Alcohol 0.7 ML/ML Medicated Pad JEFF ([facility]) ziprasidone 60 MG Oral Capsule JEFF ([facility]) Ergocalciferol 75023 UNT Oral Capsule JEFF ([facility]) 0.5 ML dulaglutide 1.5 MG/ML Auto-Injector [Trulicity] JEFF ([facility]) Triamcinolone Acetonide 1 MG/ML Topical Cream JEFF ([facility]) Steglatro 5 mg tablet JEFF ([facility]) Simvastatin 10 MG Oral Tablet JEFF ([facility]) Docusate Sodium 50 MG / sennosides, FPC 8.6 MG Oral Tablet JEFF ([facility]) sennosides 8.6 mg-docusate sodium 50 mg capsule Take 2 capsules by oral route at bedtime. JEFF ([facility]) sennosides, FPC 8.6 MG Oral Tablet [Senna-Time] JEFF ([facility]) Propranolol Hydrochloride 20 MG Oral Tablet JEFF ([facility]) Prazosin 1 MG Oral Capsule A [facility] ([facility]) OneTouch Verio Flex Meter AT [facility] ([facility]) OneTouch Delica Plus Lancet 33 gauge JEFF ([facility]) Mirtazapine 45 MG Oral Tablet JEFF ([facility]) Mirtazapine 15 MG Oral Tablet JEFF ([facility]) lamotrigine 25 MG Oral Tablet JEFF ([facility]) ziprasidone 60 MG Oral Capsule JEFF ([facility]) Ergocalciferol 70906 UNT Oral Capsule JEFF ([facility]) 0.5 ML dulaglutide 1.5 MG/ML Auto-Injector [Trulicity] JEFF ([facility]) Triamcinolone Acetonide 1 MG/ML Topical Cream JEFF ([facility]) Trazodone Hydrochloride 50 MG Oral Tablet JEFF ([facility]) Steglatro 5 mg tablet JEFF ([facility]) Simvastatin 10 MG Oral Tablet JEFF ([facility]) Docusate Sodium 50 MG / sennosides, FPC 8.6 MG Oral Tablet JEFF ([facility]) sennosides 8.6 mg-docusate sodium 50 mg capsule Take 2 capsules by oral route at bedtime. JEFF ([facility]) sennosides, FPC 8.6 MG Oral Tablet [Senna-Time] JEFF ([facility]) Propranolol Hydrochloride 20 MG Oral Tablet JEFF ([facility]) Prazosin 1 MG Oral Capsule A THENA ([facility]) OneTouch Verio test strips USE UP TO TWO TIMES A DAY DIRECTED JEFF ([facility]) OneTouch Verio Flex Meter AT [facility] ([facility]) OneTouch Delica Plus Lancet 33 gauge JEFF ([facility]) Mirtazapine 45 MG Oral Tablet JEFF ([facility]) Mirtazapine 15 MG Oral Tablet JEFF ([facility]) ziprasidone 60 MG Oral Capsule JEFF ([facility]) Ergocalciferol 55523 UNT Oral Capsule JEFF ([facility]) 0.5 ML dulaglutide 1.5 MG/ML Auto-Injector [Trulicity] JEFF ([facility]) Triamcinolone Acetonide 1 MG/ML Topical Cream JEFF ([facility]) Trazodone Hydrochloride 50 MG Oral Tablet JEFF ([facility]) Steglatro 5 mg tablet JEFF ([facility]) Simvastatin 10 MG Oral Tablet JEFF ([facility]) Docusate Sodium 50 MG / sennosides, FPC 8.6 MG Oral Tablet JEFF ([facility]) sennosides 8.6 mg-docusate sodium 50 mg capsule Take 2 capsules by oral route at bedtime. JEFF ([facility]) sennosides, FPC 8.6 MG Oral Tablet [Senna-Time] JEFF ([facility]) Propranolol Hydrochloride 20 MG Oral Tablet JEFF ([facility]) Prazosin 1 MG Oral Capsule A THENA ([facility]) OneTouch Verio test strips USE UP TO TWO TIMES A DAY DIRECTED JEFF ([facility]) OneTouch Verio Flex Meter AT [facility] ([facility]) OneTouch Delica Plus Lancet 33 gauge JEFF ([facility]) Mirtazapine 45 MG Oral Tablet JEFF ([facility]) Mirtazapine 15 MG Oral Tablet JEFF ([facility]) lamotrigine 25 MG Oral Tablet JEFF ([facility]) lamotrigine 100 MG Oral Tablet JEFF ([facility]) Ketoconazole 20 MG/ML Medicated Shampoo JEFF ([facility]) Famotidine 20 MG Oral Tablet JEFF ([facility]) Docusate Sodium 100 MG Oral Capsule [DOK] JEFF ([facility]) Clonidine Hydrochloride 0.2 MG Oral Tablet JEFF ([facility]) Clonazepam 1 MG Oral Tablet JEFF ([facility]) Clonazepam 0.5 MG Oral Tablet JEFF ([facility]) Clonazepam 0.5 MG Disintegrating Oral Tablet JEFF ([facility]) ziprasidone 60 MG Oral Capsule JEFF ([facility]) Ergocalciferol 06387 UNT Oral Capsule JEFF ([facility]) 0.5 ML dulaglutide 1.5 MG/ML Auto-Injector [Trulicity] JEFF ([facility]) Triamcinolone Acetonide 1 MG/ML Topical Cream JEFF ([facility]) Steglatro 5 mg tablet JEFF ([facility]) Simvastatin 10 MG Oral Tablet JEFF ([facility]) Docusate Sodium 50 MG / sennosides, FPC 8.6 MG Oral Tablet JEFF ([facility]) sennosides 8.6 mg-docusate sodium 50 mg capsule Take 2 capsules by oral route at bedtime. JEFF ([facility]) sennosides, FPC 8.6 MG Oral Tablet [Senna-Time] JEFF ([facility]) Propranolol Hydrochloride 20 MG Oral Tablet JEFF ([facility]) Prazosin 1 MG Oral Capsule A THENA ([facility]) OneTouch Verio Flex Meter AT [facility] ([facility]) OneTouch Delica Plus Lancet 33 gauge JEFF ([facility]) Mirtazapine 45 MG Oral Tablet JEFF ([facility]) Mirtazapine 15 MG Oral Tablet JEFF ([facility]) lamotrigine 25 MG Oral Tablet JEFF ([facility]) lamotrigine 100 MG Oral Tablet JEFF ([facility]) Ketoconazole 20 MG/ML Medicated Shampoo JEFF ([facility]) Famotidine 20 MG Oral Tablet JEFF ([facility]) Docusate Sodium 100 MG Oral Capsule [DOK] JEFF ([facility]) Clonidine Hydrochloride 0.2 MG Oral Tablet JEFF ([facility]) Clonazepam 1 MG Oral Tablet JEFF ([facility]) Clonazepam 0.5 MG Disintegrating Oral Tablet JEFF ([facility]) Clindamycin 150 MG Oral Capsule EJFF ([facility]) cefdinir 300 MG Oral Capsule JEFF ([facility]) buspirone hydrochloride 7.5 MG Oral Tablet JEFF ([facility]) buspirone hydrochloride 10 MG Oral Tablet JEFF ([facility]) benztropine mesylate 0.5 MG Oral Tablet JEFF ([facility]) benzonatate 200 MG Oral Capsule JEFF ([facility]) Azithromycin 250 MG Oral Tablet JEFF ([facility]) Amitriptyline Hydrochloride 75 MG Oral Tablet JEFF ([facility]) Amitriptyline Hydrochloride 50 MG Oral Tablet JEFF ([facility]) Isopropyl Alcohol 0.7 ML/ML Medicated Pad JEFF ([facility]) Ketoconazole 20 MG/ML Medicated Shampoo JEFF ([facility]) Famotidine 20 MG Oral Tablet JEFF ([facility]) Docusate Sodium 100 MG Oral Capsule [DOK] JEFF ([facility]) Clonidine Hydrochloride 0.2 MG Oral Tablet JEFF ([facility]) Clonazepam 1 MG Oral Tablet JEFF ([facility]) Clindamycin 150 MG Oral Capsule JEFF ([facility]) cefdinir 300 MG Oral Capsule JEFF ([facility]) buspirone hydrochloride 7.5 MG Oral Tablet JEFF ([facility]) buspirone hydrochloride 10 MG Oral Tablet JEFF ([facility]) benztropine mesylate 0.5 MG Oral Tablet JEFF ([facility]) benzonatate 200 MG Oral Capsule JEFF ([facility]) BD Ultra-Fine Short Pen Needle 31 gauge x 5/16" USE DIRECTED ONCE DAILY JEFF ([facility] er) Azithromycin 250 MG Oral Tablet JEFF ([facility]) Amitriptyline Hydrochloride 75 MG Oral Tablet JEFF ([facility]) Amitriptyline Hydrochloride 50 MG Oral Tablet JEFF ([facility]) Isopropyl Alcohol 0.7 ML/ML Medicated Pad JEFF ([facility]) lamotrigine 100 MG Oral Tablet JEFF ([facility]) Ketoconazole 20 MG/ML Medicated Shampoo JEFF ([facility]) Famotidine 20 MG Oral Tablet JEFF ([facility]) Docusate Sodium 100 MG Oral Capsule [DOK] JEFF ([facility]) Clonidine Hydrochloride 0.2 MG Oral Tablet JEFF ([facility]) Clonazepam 1 MG Oral Tablet JEFF ([facility]) Clonazepam 0.5 MG Oral Tablet JEFF ([facility]) Clonazepam 0.5 MG Disintegrating Oral Tablet JEFF ([facility]) Clindamycin 150 MG Oral Capsule JEFF ([facility]) cefdinir 300 MG Oral Capsule JEFF ([facility]) buspirone hydrochloride 7.5 MG Oral Tablet JEFF ([facility]) buspirone hydrochloride 15 MG Oral Tablet JEFF ([facility]) buspirone hydrochloride 10 MG Oral Tablet JEFF ([facility]) benztropine mesylate 0.5 MG Oral Tablet JEFF ([facility]) benzonatate 200 MG Oral Capsule JEFF ([facility]) Azithromycin 250 MG Oral Tablet JEFF ([facility]) Amitriptyline Hydrochloride 75 MG Oral Tablet JEFF ([facility]) Amitriptyline Hydrochloride 50 MG Oral Tablet JEFF ([facility]) Isopropyl Alcohol 0.7 ML/ML Medicated Pad JEFF ([facility]) ziprasidone 60 MG Oral Capsule JEFF ([facility]) 0.5 ML dulaglutide 1.5 MG/ML Auto-Injector [Trulicity] JEFF ([facility]) Triamcinolone Acetonide 1 MG/ML Topical Cream JEFF ([facility]) Steglatro 5 mg tablet JEFF ([facility]) Simvastatin 10 MG Oral Tablet JEFF ([facility]) Docusate Sodium 50 MG / sennosides, FPC 8.6 MG Oral Tablet JEFF ([facility]) sennosides 8.6 mg-docusate sodium 50 mg capsule Take 2 capsules by oral route at bedtime. JEFF ([facility]) Propranolol Hydrochloride 20 MG Oral Tablet JEFF ([facility]) Mirtazapine 45 MG Oral Tablet JEFF ([facility]) Mirtazapine 15 MG Oral Tablet JEFF ([facility]) lamotrigine 25 MG Oral Tablet JEFF ([facility]) Ketoconazole 20 MG/ML Medicated Shampoo JEFF ([facility]) Famotidine 20 MG Oral Tablet JEFF ([facility]) Clonidine Hydrochloride 0.2 MG Oral Tablet JEFF ([facility]) Clonazepam 1 MG Oral Tablet JEFF ([facility]) cefdinir 300 MG Oral Capsule JEFF ([facility]) buspirone hydrochloride 7.5 MG Oral Tablet JEFF ([facility]) buspirone hydrochloride 10 MG Oral Tablet JEFF ([facility]) benztropine mesylate 0.5 MG Oral Tablet JEFF ([facility]) benzonatate 200 MG Oral Capsule JEFF ([facility]) Azithromycin 250 MG Oral Tablet JEFF ([facility]) Amitriptyline Hydrochloride 75 MG Oral Tablet JEFF ([facility]) Amitriptyline Hydrochloride 50 MG Oral Tablet JEFF ([facility]) ziprasidone 60 MG Oral Capsule JEFF ([facility]) 0.5 ML dulaglutide 1.5 MG/ML Auto-Injector [Trulicity] JEFF ([facility]) Triamcinolone Acetonide 1 MG/ML Topical Cream JEFF ([facility]) Steglatro 5 mg tablet JEFF ([facility]) Simvastatin 10 MG Oral Tablet JEFF ([facility]) Docusate Sodium 50 MG / sennosides, FPC 8.6 MG Oral Tablet JEFF ([facility]) sennosides 8.6 mg-docusate sodium 50 mg capsule Take 2 capsules by oral route at bedtime. JEFF ([facility]) buspirone hydrochloride 10 MG Oral Tablet JEFF ([facility]) benztropine mesylate 0.5 MG Oral Tablet JEFF ([facility]) benzonatate 200 MG Oral Capsule JEFF ([facility]) Azithromycin 250 MG Oral Tablet JEFF ([facility]) Amitriptyline Hydrochloride 75 MG Oral Tablet JEFF ([facility]) Amitriptyline Hydrochloride 50 MG Oral Tablet JEFF ([facility]) ziprasidone 60 MG Oral Capsule JEFF ([facility]) 0.5 ML dulaglutide 1.5 MG/ML Auto-Injector [Trulicity] JEFF ([facility]) Triamcinolone Acetonide 1 MG/ML Topical Cream JEFF ([facility]) Steglatro 5 mg tablet JEFF ([facility]) Simvastatin 10 MG Oral Tablet JEFF ([facility]) Docusate Sodium 50 MG / sennosides, FPC 8.6 MG Oral Tablet JEFF ([facility]) ziprasidone 60 MG Oral Capsule JEFF ([facility]) Ergocalciferol 94145 UNT Oral Capsule JEFF ([facility]) 0.5 ML dulaglutide 1.5 MG/ML Auto-Injector [Trulicity] JEFF ([facility]) Triamcinolone Acetonide 1 MG/ML Topical Cream JEFF ([facility]) Steglatro 5 mg tablet JEFF ([facility]) Simvastatin 10 MG Oral Tablet JEFF ([facility]) Docusate Sodium 50 MG / sennosides, FPC 8.6 MG Oral Tablet JEFF ([facility]) sennosides 8.6 mg-docusate sodium 50 mg capsule Take 2 capsules by oral route at bedtime. JEFF ([facility]) sennosides, FPC 8.6 MG Oral Tablet [Senna-Time] JEFF ([facility]) Propranolol Hydrochloride 20 MG Oral Tablet JEFF ([facility]) Prazosin 1 MG Oral Capsule A THENA ([facility]) OneTouch Verio test strips USE DIRECTED UP TO TWO TIMES A DAY JEFF ([facility]) OneTouch Verio Flex Meter AT [facility] ([facility]) OneTouch Delica Plus Lancet 33 gauge JEFF ([facility]) Mirtazapine 45 MG Oral Tablet JEFF ([facility]) Mirtazapine 15 MG Oral Tablet JEFF ([facility]) lamotrigine 25 MG Oral Tablet JEFF ([facility]) Ketoconazole 20 MG/ML Medicated Shampoo JEFF ([facility]) Famotidine 20 MG Oral Tablet JEFF ([facility]) Docusate Sodium 100 MG Oral Capsule [DOK] JEFF ([facility]) Clonidine Hydrochloride 0.2 MG Oral Tablet JEFF ([facility]) Clonazepam 1 MG Oral Tablet JEFF ([facility]) Clindamycin 150 MG Oral Capsule JEFF ([facility]) cefdinir 300 MG Oral Capsule JEFF ([facility]) buspirone hydrochloride 7.5 MG Oral Tablet JEFF ([facility]) buspirone hydrochloride 10 MG Oral Tablet JEFF ([facility]) benztropine mesylate 0.5 MG Oral Tablet JEFF ([facility]) benzonatate 200 MG Oral Capsule JEFF ([facility]) BD Ultra-Fine Short Pen Needle 31 gauge x 5/16" USE DIRECTED ONCE DAILY JEFF ([facility]) Azithromycin 250 MG Oral Tablet JEFF ([facility]) Amitriptyline Hydrochloride 75 MG Oral Tablet JEFF ([facility]) Amitriptyline Hydrochloride 50 MG Oral Tablet JEFF ([facility]) Isopropyl Alcohol 0.7 ML/ML Medicated Pad JEFF ([facility]) ziprasidone 60 MG Oral Capsule JEFF ([facility]) Ergocalciferol [id number] UNT Oral Capsule JEFF ([facility]) 0.5 ML dulaglutide 1.5 MG/ML Auto-Injector [Trulicity] JEFF ([facility]) Triamcinolone Acetonide 1 MG/ML Topical Cream JEFF ([facility]) Steglatro 5 mg tablet JEFF ([facility]) Simvastatin 10 MG Oral Tablet JEFF ([facility]) Docusate Sodium 50 MG / sennosides, FPC 8.6 MG Oral Tablet JEFF ([facility]) sennosides 8.6 mg-docusate sodium 50 mg capsule Take 2 capsules by oral route at bedtime. JEFF ([facility]) sennosides, FPC 8.6 MG Oral Tablet [Senna-Time] JEFF ([facility]) Propranolol Hydrochloride 20 MG Oral Tablet JEFF ([facility]) Prazosin 1 MG Oral Capsule A THENA ([facility]) OneTouch Verio test strips USE DIRECTED UP TO TWO TIMES A DAY JEFF ([facility]) OneTouch Verio Flex Meter AT [facility] ([facility]) OneTouch Delica Plus Lancet 33 gauge JEFF ([facility]) Mirtazapine 45 MG Oral Tablet JEFF ([facility]) Mirtazapine 15 MG Oral Tablet JEFF ([facility]) lamotrigine 25 MG Oral Tablet JEFF ([facility]) sennosides 8.6 mg-docusate sodium 50 mg capsule Take 2 capsules by oral route at bedtime. JEFF ([facility]) Propranolol Hydrochloride 20 MG Oral Tablet JEFF ([facility]) Prazosin 1 MG Oral Capsule A THENA ([facility]) Mirtazapine 45 MG Oral Tablet JEFF ([facility]) Mirtazapine 15 MG Oral Tablet JEFF ([facility]) lamotrigine 25 MG Oral Tablet JEFF ([facility]) Ketoconazole 20 MG/ML Medicated Shampoo JEFF ([facility]) Famotidine 20 MG Oral Tablet JEFF ([facility]) Clonidine Hydrochloride 0.2 MG Oral Tablet JEFF ([facility]) Clonazepam 1 MG Oral Tablet JEFF ([facility]) Clonazepam 0.5 MG Oral Tablet JEFF ([facility]) cefdinir 300 MG Oral Capsule JEFF ([facility]) buspirone hydrochloride 7.5 MG Oral Tablet JEFF ([facility]) buspirone hydrochloride 10 MG Oral Tablet JEFF ([facility]) benztropine mesylate 0.5 MG Oral Tablet JEFF ([facility]) benzonatate 200 MG Oral Capsule JEFF ([facility]) Azithromycin 250 MG Oral Tablet JEFF ([facility]) Amitriptyline Hydrochloride 75 MG Oral Tablet JEFF ([facility]) Amitriptyline Hydrochloride 50 MG Oral Tablet JEFF ([facility]) Mirtazapine 45 MG Oral Tablet JEFF ([facility]) Mirtazapine 15 MG Oral Tablet JEFF ([facility]) Ketoconazole 20 MG/ML Medicated Shampoo JEFF ([facility]) Famotidine 20 MG Oral Tablet JEFF ([facility]) Clonidine Hydrochloride 0.2 MG Oral Tablet JEFF ([facility]) Clonazepam 1 MG Oral Tablet JEFF ([facility]) cefdinir 300 MG Oral Capsule JEFF ([facility]) buspirone hydrochloride 7.5 MG Oral Tablet JEFF ([facility]) buspirone hydrochloride 10 MG Oral Tablet JEFF ([facility]) benztropine mesylate 0.5 MG Oral Tablet JEFF ([facility]) benzonatate 200 MG Oral Capsule JEFF ([facility]) Azithromycin 250 MG Oral Tablet JEFF ([facility]) Amitriptyline Hydrochloride 75 MG Oral Tablet JEFF ([facility]) Amitriptyline Hydrochloride 50 MG Oral Tablet JEFF ([facility]) ziprasidone 60 MG Oral Capsule JEFF ([facility]) 0.5 ML dulaglutide 1.5 MG/ML Auto-Injector [Trulicity] JEFF ([facility]) Triamcinolone Acetonide 1 MG/ML Topical Cream JEFF ([facility]) Docusate Sodium 50 MG / sennosides, FPC 8.6 MG Oral Tablet JEFF ([facility]) sennosides 8.6 mg-docusate sodium 50 mg capsule Take 2 capsules by oral route at bedtime. JEFF ([facility]) Propranolol Hydrochloride 20 MG Oral Tablet JEFF ([facility]) Mirtazapine 45 MG Oral Tablet JEFF ([facility]) Mirtazapine 15 MG Oral Tablet JEFF ([facility]) Ketoconazole 20 MG/ML Medicated Shampoo JEFF ([facility]) Propranolol Hydrochloride 20 MG Oral Tablet JEFF ([facility]) Mirtazapine 45 MG Oral Tablet JEFF ([facility]) Mirtazapine 15 MG Oral Tablet JEFF ([facility]) lamotrigine 25 MG Oral Tablet JEFF ([facility]) Ketoconazole 20 MG/ML Medicated Shampoo JEFF ([facility]) Famotidine 20 MG Oral Tablet JEFF ([facility]) Clonidine Hydrochloride 0.2 MG Oral Tablet JEFF ([facility]) Clonazepam 1 MG Oral Tablet JEFF ([facility]) cefdinir 300 MG Oral Capsule JEFF ([facility]) buspirone hydrochloride 7.5 MG Oral Tablet JEFF ([facility]) Famotidine 20 MG Oral Tablet JEFF ([facility]) Clonidine Hydrochloride 0.2 MG Oral Tablet [facility] [facility] Clonazepam 1 MG Oral Tablet JEFF ([facility]) cefdinir 300 MG Oral Capsule JEFF ([facility]) buspirone hydrochloride 7.5 MG Oral Tablet JEFF ([facility]) buspirone hydrochloride 10 MG Oral Tablet JEFF ([facility]) benztropine mesylate 0.5 MG Oral Tablet JEFF ([facility]) benzonatate 200 MG Oral Capsule JEFF ([facility]) Azithromycin 250 MG Oral Tablet JEFF ([facility]) Amitriptyline Hydrochloride 75 MG Oral Tablet JEFF ([facility]) Amitriptyline Hydrochloride 50 MG Oral Tablet JEFF ([facility]) ziprasidone 60 MG Oral Capsule JEFF ([facility]) 0.5 ML dulaglutide 1.5 MG/ML Auto-Injector [Trulicity] JEFF ([facility]) Triamcinolone Acetonide 1 MG/ML Topical Cream JEFF ([facility]) Ketoconazole 20 MG/ML Medicated Shampoo JEFF ([facility]) Famotidine 20 MG Oral Tablet JEFF ([facility]) Clonidine Hydrochloride 0.2 MG Oral Tablet JEFF ([facility]) Clonazepam 1 MG Oral Tablet JEFF ([facility]) cefdinir 300 MG Oral Capsule JEFF ([facility]) buspirone hydrochloride 7.5 MG Oral Tablet JEFF ([facility]) buspirone hydrochloride 10 MG Oral Tablet JEFF ([facility]) benztropine mesylate 0.5 MG Oral Tablet JEFF ([facility]) benzonatate 200 MG Oral Capsule JEFF ([facility]) Azithromycin 250 MG Oral Tablet JEFF ([facility]) Amitriptyline Hydrochloride 75 MG Oral Tablet JEFF ([facility]) Amitriptyline Hydrochloride 50 MG Oral Tablet JEFF ([facility]) ziprasidone 60 MG Oral Capsule JEFF ([facility]) 0.5 ML dulaglutide 1.5 MG/ML Auto-Injector [Trulicity] JEFF ([facility]) Triamcinolone Acetonide 1 MG/ML Topical Cream JEFF ([facility]) Docusate Sodium 50 MG / sennosides, FPC 8.6 MG Oral Tablet JEFF ([facility]) sennosides 8.6 mg-docusate sodium 50 mg capsule Take 2 capsules by oral route at bedtime. JEFF ([facility]) Propranolol Hydrochloride 20 MG Oral Tablet JEFF ([facility]) ziprasidone 60 MG Oral Capsule JEFF ([facility]) 0.5 ML dulaglutide 1.5 MG/ML Auto-Injector [Trulicity] JEFF ([facility]) Triamcinolone Acetonide 1 MG/ML Topical Cream JEFF ([facility]) Docusate Sodium 50 MG / sennosides, FPC 8.6 MG Oral Tablet JEFF ([facility]) sennosides 8.6 mg-docusate sodium 50 mg capsule Take 2 capsules by oral route at bedtime. JEFF ([facility]) Propranolol Hydrochloride 20 MG Oral Tablet JEFF ([facility]) Mirtazapine 45 MG Oral Tablet JEFF ([facility]) Mirtazapine 15 MG Oral Tablet JEFF ([facility]) Ketoconazole 20 MG/ML Medicated Shampoo JEFF ([facility]) Famotidine 20 MG Oral Tablet JEFF ([facility]) Clonidine Hydrochloride 0.2 MG Oral Tablet JEFF ([facility]) Clonazepam 1 MG Oral Tablet JEFF ([facility]) Docusate Sodium 50 MG / sennosides, FPC 8.6 MG Oral Tablet JEFF ([facility]) sennosides 8.6 mg-docusate sodium 50 mg capsule Take 2 capsules by oral route at bedtime. JEFF ([facility]) Propranolol Hydrochloride 20 MG Oral Tablet JEFF ([facility]) Mirtazapine 45 MG Oral Tablet JEFF ([facility]) Mirtazapine 15 MG Oral Tablet JEFF ([facility]) Ketoconazole 20 MG/ML Medicated Shampoo JEFF ([facility]) Famotidine 20 MG Oral Tablet JEFF ([facility]) Clonidine Hydrochloride 0.2 MG Oral Tablet JEFF ([facility]) Clonazepam 1 MG Oral Tablet JEFF ([facility]) cefdinir 300 MG Oral Capsule JEFF ([facility]) buspirone hydrochloride 7.5 MG Oral Tablet JEFF ([facility]) buspirone hydrochloride 10 MG Oral Tablet JEFF ([facility]) benztropine mesylate 0.5 MG Oral Tablet JEFF ([facility]) benzonatate 200 MG Oral Capsule JEFF ([facility]) Azithromycin 250 MG Oral Tablet JEFF ([facility]) Amitriptyline Hydrochloride 75 MG Oral Tablet JEFF ([facility]) Amitriptyline Hydrochloride 50 MG Oral Tablet JEFF ([facility]) Docusate Sodium 50 MG / sennosides, FPC 8.6 MG Oral Tablet JEFF ([facility]) sennosides 8.6 mg-docusate sodium 50 mg capsule Take 2 capsules by oral route at bedtime. JEFF ([facility]) Propranolol Hydrochloride 20 MG Oral Tablet JEFF ([facility]) Mirtazapine 45 MG Oral Tablet JEFF ([facility]) Mirtazapine 15 MG Oral Tablet JEFF ([facility]) cefdinir 300 MG Oral Capsule JEFF ([facility]) buspirone hydrochloride 7.5 MG Oral Tablet JEFF ([facility]) buspirone hydrochloride 10 MG Oral Tablet JEFF ([facility]) benztropine mesylate 0.5 MG Oral Tablet JEFF ([facility]) benzonatate 200 MG Oral Capsule JEFF ([facility]) Azithromycin 250 MG Oral Tablet JEFF ([facility]) Amitriptyline Hydrochloride 75 MG Oral Tablet JEFF ([facility]) Amitriptyline Hydrochloride 50 MG Oral Tablet JEFF ([facility]) ziprasidone 60 MG Oral Capsule JEFF ([facility]) 0.5 ML dulaglutide 1.5 MG/ML Auto-Injector [Trulicity] JEFF ([facility]) Triamcinolone Acetonide 1 MG/ML Topical Cream JEFF ([facility])
[2021-08-12] MEDS ORDERED: IBUP80TA (14:37)
--- OUTSIDE RECORDS SUMMARY | 2021-08-12 15:18 | CCD ---
Author Author [facility] Address Unknown Phone Unavailable Support Name Relationship Address Phone Aleyda Goncalves Next Of Kin Unknown Unavailable Kinza Fritz Next Of Kin [address] [place] [address] Leela Castaneda Next Of Kin [address] [place], [place] [phone] Steven Veloz MD Next Of Kin [address] [place] [address] UNanci Next Of Kin Unknown Unavailable SANDIP [place] [address] GERRY VARGAS Next Of Kin Unknown GERRY OJEDA Next Of Kin [address] [facility] [place] [address] GERRY MONIQUE Next Of Kin [address] [place] [address] Selena MUHAMMAD, Carol Next Of Kin [address] [place] [address] NONE, N[place] [address] Unavailable KACY GONCALVES Next Of Kin [address] [facility] [place] [address] [place] [address] NOBODY, TIME AT Next Of Kin [address] [place] [address] ALEYDA GONCALVES Next Of Kin [address] [facility] [place] [address] STEPHANIE, [place] [address] ALANNA HATFIELD Next Of Kin [address] [facility] [address] [place] [phone] [place] [address] DISABLED Next Of Kin Unknown GERRY OJEDA ECON Unknown Unavailable Aleyda Louie [place] [address] [place] [address] Unavailable ALEYDA GONCALVES ECON [address] [place] [address] [phone] Care Team Providers 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 Name Role Phone Shiv Veloz MD Unavailable [...] Unavailable Shiv Veloz MD Unavailable Unavailable Shiv eVloz MD Unavailable Unavailable Shiv Veloz MD Unavailable [...] Shiv Harris MD Unavailable Unavailable Kinza Yanes ENTERPRISE ENGINEER ENTERPRISE ENGINEER Unavailable Unavailable Montenegro, R Russell LABEL CUTTER Unavailable Unavailable Montenegro, R Russell LABEL CUTTER Unavailable Unavailable Montenegro, R Russell LABEL CUTTER Unavailable Unavailable PABLO, B LIAM LABEL CUTTER Unavailable Unavailable PABLO, B LIAM LABEL CUTTER Unavailable Unavailable PABLO, B LIAM LABEL CUTTER Unavailable Unavailable PABLO, B LIAM LABEL CUTTER Unavailable Unavailable PABLO, B LIAM LABEL CUTTER Unavailable Unavailable PABLO, B LIAM LABEL CUTTER Unavailable Unavailable PABLO, B LIAM LABEL CUTTER Unavailable Unavailable PABLO, B LIAM LABEL CUTTER Unavailable Unavailable PABLO, B LIAM LABEL CUTTER Unavailable Unavailable PABLO, B LIAM LABEL CUTTER Unavailable Unavailable PABLO, B LIAM LABEL CUTTER Unavailable Unavailable PABLO, B LIAM LABEL CUTTER Unavailable Unavailable PABLO, B LIAM LABEL CUTTER Unavailable Unavailable PABLO, B LIAM LABEL CUTTER Unavailable Unavailable PABLO, B LIAM LABEL CUTTER Unavailable Unavailable PABLO, B LIAM LABEL CUTTER Unavailable Unavailable PABLO, B LIAM LABEL CUTTER Unavailable Unavailable PABLO, B LIAM LABEL CUTTER Unavailable Unavailable PABLO, B LIAM LABEL CUTTER Unavailable Unavailable PABLO, B LIAM LABEL CUTTER Unavailable Unavailable PABLO, B LIAM LABEL CUTTER Unavailable Unavailable PABLO, B LIAM LABEL CUTTER Unavailable Unavailable PABLO, B LIAM LABEL CUTTER Unavailable Unavailable PABLO, B LIAM LABEL CUTTER Unavailable Unavailable PABLO, B LIAM LABEL CUTTER Unavailable Unavailable PABLO, B LIAM LABEL CUTTER Unavailable Unavailable PABLO, B LIAM LABEL CUTTER Unavailable Unavailable PABLO, B LIAM LABEL CUTTER Unavailable Unavailable PABLO, B LIAM LABEL CUTTER Unavailable Unavailable PABLO, B LIAM LABEL CUTTER Unavailable Unavailable PABLO, B LIAM LABEL CUTTER Unavailable Unavailable PABLO, B LIAM LABEL CUTTER Unavailable Unavailable PABLO, B LIAM LABEL CUTTER Unavailable Unavailable PABLO, B LIAM LABEL CUTTER Unavailable Unavailable PABLO, B LIAM LABEL CUTTER Unavailable Unavailable PABLO, B LIAM LABEL CUTTER Unavailable Unavailable PABLO, B LIAM LABEL CUTTER Unavailable Unavailable PABLO, B LIAM LABEL CUTTER Unavailable Unavailable PABLO, B LIAM LABEL CUTTER Unavailable Unavailable PABLO, B LIAM LABEL CUTTER Unavailable Unavailable PABLO, B LIAM LABEL CUTTER Unavailable Unavailable PABOL, B LIAM LABEL CUTTER Unavailable Unavailable PABLO, B LIAM LABEL CUTTER Unavailable Unavailable PABLO, B LIAM LABEL CUTTER Unavailable Unavailable PABLO, B LIAM LABEL CUTTER Unavailable Unavailable PABLO, B LIAM LABEL CUTTER Unavailable Unavailable PABLO, B LIAM LABEL CUTTER Unavailable Unavailable PABLO, B LIAM LABEL CUTTER Unavailable Unavailable PABLO, B LIAM LABEL CUTTER Unavailable Unavailable PABLO, B LIAM LABEL CUTTER Unavailable Unavailable PABLO, B LIAM LABEL CUTTER Unavailable Unavailable PABLO, B LIAM LABEL CUTTER Unavailable Unavailable PABLO, B LIAM LABEL CUTTER Unavailable Unavailable PABLO, B LIAM LABEL CUTTER Unavailable Unavailable PABLO, B LIAM LABEL CUTTER Unavailable Unavailable PABLO, B LIAM LABEL CUTTER Unavailable Unavailable PABLO, B LIAM LABEL CUTTER Unavailable Unavailable PABLO, B LIAM LABEL CUTTER Unavailable Unavailable PABLO, B LIAM LABEL CUTTER Unavailable Unavailable PABLO, B LIAM LABEL CUTTER Unavailable Unavailable PABLO, B LIAM LABEL CUTTER Unavailable Unavailable PABLO, B LIAM LABEL CUTTER Unavailable Unavailable MAJAK, Kim VIRGEN DPM Unavailable [...] PARAM DPM Unavailable Unavailable Corey Basilio Unavailable Ricky, Cristy Adrienne PMH-LABEL CUTTER Unavailable Unavailable Ricky, K Adrienne PMH-LABEL CUTTER Unavailable Unavailable Yeso, K Adrienne PMH-LABEL CUTTER Unavailable Unavailable Ricky, K Adrienne PMH-LABEL CUTTER Unavailable Unavailable Yeso, K Adrienne PMH-LABEL CUTTER Unavailable Unavailable Ricky, K Adrienne PMH-LABEL CUTTER Unavailable Unavailable Ricky, K Adrienne PMH-LABEL CUTTER Unavailable Unavailable Ricky, K Adrienne PMH-LABEL CUTTER Unavailable Unavailable Cesilia Narvaez Unavailable Guido Yanes Kinza ENTERPRISE ENGINEER-BC Unavailable Unavailable Joaquín, F Kinza ENTERPRISE ENGINEER-BC Unavailable Unavailable Joaquín, F Kinza ENTERPRISE ENGINEER-BC Unavailable Unavailable Joaquín, F Kinza ENTERPRISE ENGINEER-BC Unavailable Unavailable Yanes, F Kinza ENTERPRISE ENGINEER-BC Unavailable Unavailable Joaquín, F Kinza ENTERPRISE ENGINEER-BC Unavailable Unavailable Yanes, F Kinza ENTERPRISE ENGINEER-BC Unavailable Unavailable Yanes, F Kinza ENTERPRISE ENGINEER-BC Unavailable Unavailable Yanes, F Kinza ENTERPRISE ENGINEER-BC Unavailable Unavailable Yanes, F Kinza ENTERPRISE ENGINEER-BC Unavailable Unavailable Yanes, F Kinza ENTERPRISE ENGINEER-BC Unavailable Unavailable Joaquín, F Kinza ENTERPRISE ENGINEER-BC Unavailable Unavailable Yanes, F Kinza ENTERPRISE ENGINEER-BC Unavailable Unavailable Guido Yanes Kinza ENTERPRISE ENGINEER-BC Unavailable Unavailable Guido Yanes ENTERPRISE ENGINEER-BC Unavailable Unavailable Guido Yanes ENTERPRISE ENGINEER-BC Unavailable Unavailable Guido Yanes ENTERPRISE ENGINEER-BC Unavailable Unavailable Guido Yanes Kinza ENTERPRISE ENGINEER-BC Unavailable Unavailable Guido Yanes Kinza ENTERPRISE ENGINEER-BC Unavailable Unavailable Guido Yanes Kinza ENTERPRISE ENGINEER-BC Unavailable Unavailable Guido Yanes ENTERPRISE ENGINEER-BC Unavailable Unavailable Guido Yanes Kinza ENTERPRISE ENGINEER-BC Unavailable Unavailable Guido Yanes Kinza ENTERPRISE ENGINEER-BC Unavailable Unavailable Scordo, M Whitney PA Unavailable [...] is protected by Article 27-F of the [facility] Public Health law. If you continue you may have access to information: Regarding HIV / AIDS; Provided by facilities licensed or operated by the [facility] Office of Mental Health; or Provided by the [facility] Office for People With Developmental Disabilities. If such information is present, then the following [facility] mandated warning applies: This information has [...] law may result in a fine or longterm sentence or both. A general authorization for the release of medical or other information is NOT sufficient authorization for further disc losure. Allergies and Adverse Reactions Type Description Substance Reaction Status Data Source(s ) Propensity to adverse reactions to substance Penicillins Penicillins Active [facility] ([facility]) Propensity to adverse reactions to substance chlorpromazine Chlorpromazine hydrochloride 100 MG Oral Tablet Active [facility] ([facility]) Family History Family Member Name Family Member Gender Family Member Status Date o f Status Description Data Source(s) Unknown Unknown Problem [facility]ENT ([facility], ) Encounters Encounter Providers Location Date Indications Data Source(s ) Steven Veloz MD: [address] [place] [phone], Ph. Attender: Steven Veloz MD [facility] Medical 07/19/2021 12:00:00 AM EDT JEFF ([facility]) Extended Individual Psychotherapy - 45 min Attender: [facility] 07/02/2021 10:45:00 AM EDT - 07/02/2021 10:45:00 AM EDT [facility] ([facility]) Attender: [facility] 07/02/2021 12:00:00 AM EDT [facility] ([facility]) [id number] 30" Psychotherapy Attender: [facility] 06/14/2021 12:30:00 PM EDT - 06/14/2021 12:30:00 PM EDT [facility] ([facility]) Attender: [facility] 06/14/2021 12:00:00 AM EDT [facility] ([facility]) Steven Veloz MD: [address] [place] [phone], Ph. Attender: Steven Veloz MD [facility] Medical 06/12/2021 12:00:00 AM EDT JEFF ([facility]) Steven Veloz MD: [address] [place] [phone], Ph. Attender: Steven Veloz MD [facility] Medical 06/12/2021 12:00:00 AM EDT JEFF ([facility]) Brief Individual Psychotherapy - 30 min Attender: [facility] 05/31/2021 12:30:00 PM EDT - 05/31/2021 12:30:00 PM EDT [facility] ([facility]) Attender: Corey Basilio 05/31/2021 12:00:00 AM EDT [facility] ([facility]) Outpatient Attender: Russell Montenegro NP [facility] 05/30/2021 10:45:00 AM EDT - 05/30/2021 10:45:00 AM EDT [facility] ([facility]) Attender: Russell Montenegro NP 05/30/2021 12:00:00 AM EDT [facility] ([facility]) Steven Veloz MD: [address] [place] [address], Ph. Attender: Steven Veloz MD [facility] Medical 05/02/2021 12:00:00 AM EDT JEFF ([facility]) Steven Veloz MD: [address] [place] [phone], Ph. Attender: Steven Veloz MD [facility] Medical 05/02/2021 12:00:00 AM EDT JEFF ([facility]) Steven Veloz MD: [address] [place] [phone], Ph. Attender: Steven Veloz MD [facility] Medical 05/02/2021 12:00:00 AM EDT JEFF ([facility]) [id number]"Psychotherapy Attender: Corey Basilio [facility] 05/01/2021 01:00:00 AM EDT - 05/01/2021 01:00:00 AM EDT [facility] ([facility]) Attender: Corey Basilio 05/01/2021 12:00:00 AM EDT [facility] ([facility]) Unknown [address] [facility] [address] 04/03/2021 12:00:00 AM EDT eCW1 ([facility]) Extended Individual Psychotherapy - 45 min Attender: Corey Basilio [facility] 03/26/2021 10:45:00 AM EDT - 03/26/2021 10:45:00 AM EDT [facility] ([facility]) Attender: Corey Basilio 03/26/2021 12:00:00 AM EDT [facility] ([facility]) Steven Veloz MD: [address] [place] [address]1 [address], Ph. Attender: Steven Veloz MD [facility] Medical 03/22/2021 12:00:00 AM EDT JEFF ([facility]) Steven Veloz MD: [address] [place] [address], Ph. Attender: Steven Veloz MD [facility] Medical 03/22/2021 12:00:00 AM EDT JEFF ([facility]) Steven Veloz MD: [address] [place] [address]0 [address], Ph. Attender: Steven Veloz MD [facility] Medical 03/22/2021 12:00:00 AM EDT JEFF ([facility]) Steven Veloz MD: [address] [place] [address]0 [address], Ph. Attender: Steven Veloz MD [facility] Medical 03/22/2021 12:00:00 AM EDT JEFF ([facility]) Steven Veloz MD: [address] [place] [address]3 [address], Ph. Attender: Steven Veloz MD [facility] Medical 03/22/2021 12:00:00 AM EDT JEFF ([facility]) Steven Veloz MD: [address] [place] [address]4 [address], Ph. Attender: Steven Veloz MD [facility] Medical 03/22/2021 12:00:00 AM EDT JEFF ([facility]) Outpatient Attender: PARAM VENTURA [facility] 02/11 09:45:00 AM EDT MEDENT ([facility] Whitney Flores PA-C: [address], [place] [address], Ph. Attender: Whitney BOTELLO [facility] Medical 03/02/2021 12:00:00 AM EDT TRINIDAD ([facility]) Whitney Flores PA-C: [address], [place] [address], Ph. Attender: Whitney BOTELLO [facility] Medical 03/02/2021 12:00:00 AM EDT [place] ([facility]) Whitney Flores PA-C: [address], [place] [address], Ph. Attender: Whitney BOTELLO [facility] Medical 03/02/2021 12:00:00 AM EDT [place] ([facility]) Whitney Flores PA-C: [address], [place] [address], Ph. Attender: Whitney BOTELLO [facility] Medical 03/02/2021 12:00:00 AM EDT [place] ([facility]) Whitney Flores PA-C: [address], [place] [address], Ph. Attender: Whitney BOTELLO [facility] Medical 03/02/2021 12:00:00 AM EDT [place] ([facility]) Whitney Flores PA-C: [address], [place] [address], Ph. Attender: Whitney BOTELLO [facility] Medical 03/02/2021 12:00:00 AM EDT JEFF ([facility]) Whitney Flores PA-C: [address] [place] [address], Ph. Attender: Whitney BOTELLO [facility] Medical 03/02/2021 12:00:00 AM EDT JEFF ([facility]) Extended Individual Psychotherapy - 45 min Attender: [facility] Chetna [facility] 02/26/2021 12:00:00 PM EDT - 02/26/2021 12:00:00 PM EDT [facility] ([facility] Attender: Corey Basilio 02/26/2021 12:00:00 AM EDT [facility] ([facility]) Unknown [address] [facility], [facility] [address] 02/21/2021 12:00:00 AM EDT eCW1 ([facility]) Steven Veloz MD: [address] [place] [phone], Ph. Attender: Steven Veloz MD [facility] Medical 02/12/2021 12:00:00 AM EDT JEFF ([facility]) Steven Veloz MD: [address] [place] [address]1 [address], Ph. Attender: Steven Veloz MD [facility] Medical 02/12/2021 12:00:00 AM EDT JEFF ([facility]) Steven Veloz MD: [address] [place] [phone], Ph. Attender: Steven Veloz MD [facility] Medical 02/12/2021 12:00:00 AM EDT JEFF ([facility]) Steven Veloz MD: [address] [place] [address]7 [address], Ph. Attender: Steven Veloz MD [facility] Medical 02/12/2021 12:00:00 AM EDT JEFF ([facility]) Steven Veloz MD: [address] [place] [address]7 [address], Ph. Attender: Steven Veloz MD [facility] Medical 02/12/2021 12:00:00 AM EDT JEFF ([facility]) Steven Veloz MD: [address] [place] [address], Ph. Attender: Steven Veloz MD [facility] Medical 02/12/2021 12:00:00 AM EDT JEFF ([facility]) Steven Veloz MD: [address] [place] [address]8 [address], Ph. Attender: Steven Veloz MD [facility] Medical 02/12/2021 12:00:00 AM EDT JEFF ([facility]) Steven Veloz MD: [address] [place] [address], Ph. Attender: Steven Veloz MD [facility] Medical 02/12/2021 12:00:00 AM EDT JEFF ([facility]) Steven Veloz MD: [address] [place] [address]-0 504, Ph. Attender: Steven Veloz MD [facility] Medical 02/12/2021 12:00:00 AM EDT JEFF ([facility]) Brief Individual Psychotherapy - 30 min Attender: Corey Basilio [facility] 02/07/2021 11:30:00 AM EDT - 02/07/2021 11:30:00 AM EDT [facility] ([facility]) Attender: Corey Basilio 02/07/2021 12:00:00 AM EDT [facility] ([facility]) Unknown [address] [facility] [address] 01/24/2021 12:00:00 AM EDT eCW1 ([facility]) [id number]"Psychotherapy Attender: Corey Basilio [facility] unty Assisted 01/18/2021 06:00:00 AM EDT - 01/18/2021 06:00:00 AM EDT [facility] ([facility]) Attender: Corey Basilio 01/18/2021 12:00:00 AM EDT [facility] ([facility]) Steven Veloz MD: [address] [place] [address]-7 [address], Ph. Attender: Steven Veloz MD [facility] Medical 01/09/2021 12:00:00 AM EDT JEFF ([facility]) Steven Veloz MD: [address] [place] [address]-6 [address], Ph. Attender: Steven Veloz MD [facility] Medical 01/09/2021 12:00:00 AM EDT JEFF ([facility]) Steven Veloz MD: [address] [place] [address]-3 504, Ph. Attender: Steven Veloz MD [facility] Medical 01/09/2021 12:00:00 AM EDT JEFF ([facility]) Steven Veloz MD: [address] [place] [address]-8 [address], Ph. Attender: Steven Veloz MD [facility] Medical 01/09/2021 12:00:00 AM EDT JEFF ([facility]) Steven Veloz MD: [address] [place] [address]-7 [address], Ph. Attender: Steven Veloz MD [facility] Medical 01/09/2021 12:00:00 AM EDT JEFF ([facility]) Steven Veloz MD: [address] [place] [address]-5 [address], Ph. Attender: Steven Veloz MD [facility] Medical 01/09/2021 12:00:00 AM EDT JEFF ([facility]) Steven Veloz MD: [address] [place] [address]-3 504, Ph. Attender: Steven Veloz MD [facility] Medical 01/09/2021 12:00:00 AM EDT JEFF ([facility]) Steven Veloz MD: [address] [place] [address]9 [address], Ph. Attender: Steven Veloz MD [facility] Medical 01/09/2021 12:00:00 AM EDT JEFF ([facility]) Steven Veloz MD: [address] [place] [address]-1 504, Ph. Attender: Steven Veloz MD [facility] Medical 01/09/2021 12:00:00 AM EDT JEFF ([facility]) Steven Veloz MD: [address] [place] [address]-2 504, Ph. Attender: Steven Veloz MD [facility] Medical 01/09/2021 12:00:00 AM EDT JEFF ([facility]) Extended Individual Psychotherapy - 45 min Attender: Corey Basilio [facility] 12/28/2020 12:00:00 PM EDT - 12/28/2020 12:00:00 PM EDT [facility] ([facility]) Attender: Corey Basilio 12/28/2020 12:00:00 AM EDT [facility] ([facility]) Stveen Veloz MD: [address] [place] [address]-7 [address], Ph. Attender: Steven Veloz MD [facility] Medical 12/14/2020 12:00:00 AM EST JEFF ([facility]) Steven Veloz MD: [address] [place] [address]-3 [address], Ph. Attender: Steven Veloz MD [facility] Medical 12/14/2020 12:00:00 AM EST JEFF ([facility]) Steven Veloz MD: [address] [place] [address]-3 504, Ph. Attender: Steven Veloz MD [facility] Medical 12/14/2020 12:00:00 AM EST JEFF ([facility]) Steven Veloz MD: [address] [place] [address]-0 504, Ph. Attender: Steven Veloz MD [facility] Medical 12/14/2020 12:00:00 AM EST JEFF ([facility]) Steven Veloz MD: [address] [place] [address]-5 504, Ph. Attender: Steven Veloz MD [facility] Medical 12/14/2020 12:00:00 AM EST JEFF ([facility]) Steven Veloz MD: [address] [place] [address]-6 504, Ph. Attender: Steven Veloz MD [facility] Medical 12/14/2020 12:00:00 AM EST JEFF ([facility]) Steven Veloz MD: [address] [place] [address]-8 504, Ph. Attender: Steven Veloz MD [facility] Medical 12/14/2020 12:00:00 AM EST JEFF ([facility]) Steven Veloz MD: [address] [place] [address]-4 504, Ph. Attender: Steven Veloz MD [facility] Medical 12/14/2020 12:00:00 AM EST JEFF ([facility]) Steven Veloz MD: [address] [place] [address]-4 504, Ph. Attender: Steven Veloz MD [facility] Medical 12/14/2020 12:00:00 AM EST JEFF ([facility]) Steven Veloz MD: [address] [place] [address]-0 504, Ph. Attender: Steven Veloz MD [facility] Medical 12/14/2020 12:00:00 AM EST JEFF ([facility]) Steven Veloz MD: [address] [place] [address]-2 504, Ph. Attender: Steven Veloz MD [facility] Medical 12/14/2020 12:00:00 AM EST JEFF ([facility]) Outpatient Attender: Adrienne García [facility]-LABEL CUTTER [facility] 12/11/2020 09:30:00 AM EST - 12/11/2020 09:30:00 AM EST [facility] ([facility]) Attender: Adrienne García [facility]-LABEL CUTTER 12/11/2020 12: 00:00 AM EST [facility] ([facility]) Extended Individual Psychotherapy - 45 min Attender: Glenna Chetna [facility] 12/07/2020 12:00:00 PM EST - 12/07/2020 12:00:00 PM EST [facility] ([facility]) Attender: Corey Basilio 12/07/2020 12:00:00 AM EST [facility] ([facility]) Outpatient [facility] [address] 12/06/2020 12:00:00 AM EST eCW1 ([facility]) Outpatient Attender: LIAM SHAH LABEL CUTTER Physical Therapy 02:30:00 PM EST MEDENT ([facility]) Steven Veloz MD: [address] [place] [address]-5 [address], Ph. Attender: Steven Veloz MD [facility] Medical 11/10/2020 12:00:00 AM EST JEFF ([facility]) Steven Veloz MD: [address] [place] [address]-6 [address], Ph. Attender: Steven Veloz MD [facility] Medical 11/10/2020 12:00:00 AM EST JEFF ([facility]) Steven Veloz MD: [address] [place] [address]-4 504, Ph. Attender: Steven Veloz MD [facility] Medical 11/10/2020 12:00:00 AM EST JEFF ([facility]) Steven Veloz MD: [address] [place] [address]-0 504, Ph. Attender: Steven Veloz MD [facility] Medical 11/10/2020 12:00:00 AM EST JEFF ([facility]) Steven Veloz MD: [address] [place] [address]-1 504, Ph. Attender: Steven Veloz MD [facility] Medical 11/10/2020 12:00:00 AM EST JEFF ([facility]) Steven Veloz MD: [address] [place] [address]-7 504, Ph. Attender: Steven Veloz MD [facility] Medical 11/10/2020 12:00:00 AM EST JEFF ([facility]) Steven Veloz MD: [address] [place] [address]-2 504, Ph. Attender: Steven Veloz MD [facility] Medical 11/10/2020 12:00:00 AM EST JEFF ([facility]) Steven Veloz MD: [address] [place] [address]-9 [address], Ph. Attender: Steven Veloz MD [facility] Medical 11/10/2020 12:00:00 AM EST JEFF ([facility]) Steven Veloz MD: [address] [place] [address]-2 504, Ph. Attender: Steven Veloz MD [facility] Medical 11/10/2020 12:00:00 AM EST JEFF ([facility]) Steven Veloz MD: [address] [place] [phone], Ph. Attender: Steven Veloz MD [facility] Medical 11/10/2020 12:00:00 AM EST JEFF ([facility]) Steven Veloz MD: [address] [place] [address]8 504, Ph. Attender: Steven Veloz MD [facility] Medical 11/10/2020 12:00:00 AM EST JEFF ([facility]) Steven Veloz MD: [address] [place] [address]5 504, Ph. Attender: Steven Veloz MD [facility] Medical 11/10/2020 12:00:00 AM EST JEFF ([facility]) TEMPMHCTelemed 30" Psychotherapy Attender: Corey Basilio [facility] 11/07/2020 12:00:00 PM EST - 11/07/2020 12:00:00 PM EST [facility] ([facility]) Attender: Corey Basilio 11/07/2020 12:00:00 AM EST [facility] ([facility]) Outpatient [address] [facility] [place] [address] 11/01/2020 12:00:00 AM EST [email or web address] ([facility]) Outpatient Attender: Adrienne García [facility] Assisted 10/25/2020 10:00:00 AM EST - 10/25/2020 10:00:00 AM EST [facility] ([facility]) Attender: Adrienne García [facility] 10/25/2020 12: 00:00 AM EST [facility] ([facility]) Extended Individual Psychotherapy - 45 min [facility] 12:00:00 PM EST - 10/20/2020 12:00:00 PM EST [facility] ([facility]) Attender: Corey Basilio 10/20/2020 12:00:00 AM EST [facility] ([facility]) Outpatient Attender: LIAM SHAH NP Physical Therapy 12:15:00 PM EST MEDENT ([facility]) Unknown [address] [facility] [facility] [place] [address] 10/16/2020 12:00:00 AM EST eCW1 ([facility]) Steven Veloz MD: [address] [place] [phone], Ph. Attender: Steven Veloz MD [facility] Medical 10/03/2020 12:00:00 AM EST JEFF ([facility]) Steven Veloz MD: [address] [place] [phone], Ph. Attender: Steven Veloz MD [facility] Medical 10/03/2020 12:00:00 AM EST JEFF ([facility]) Steven Veloz MD: [address] [place] [phone], Ph. Attender: Steven Veloz MD [facility] Medical 10/03/2020 12:00:00 AM EST JEFF ([facility]) Steven Veloz MD: [address] [place] [address] 504, Ph. Attender: Steven Veloz MD [facility] Medical 10/03/2020 12:00:00 AM EST JEFF ([facility]) Steven Veloz MD: [address] [place] [address], Ph. Attender: Steven Veloz MD [facility] Medical 10/03/2020 12:00:00 AM EST JEFF ([facility]) Steven Veloz MD: [address] [place] [address], Ph. Attender: Steven Veloz MD [facility] Medical 10/03/2020 12:00:00 AM EST JEFF ([facility]) Steven Veloz MD: [address] [place] [address] 504, Ph. Attender: Steven Veloz MD [facility] Medical 10/03/2020 12:00:00 AM EST JEFF ([facility]) Steven Veloz MD: [address] [place] [address], Ph. Attender: Steven Veloz MD [facility] Medical 10/03/2020 12:00:00 AM EST JEFF ([facility]) Steven Veloz MD: [address] [place] [address], Ph. Attender: Steven Veloz MD [facility] Medical 10/03/2020 12:00:00 AM EST JEFF ([facility]) Steven Veloz MD: [address] [place] [address] 504, Ph. Attender: Steven Veloz MD [facility] Medical 10/03/2020 12:00:00 AM EST JEFF ([facility]) Steven Veloz MD: [address] [place] [address], Ph. Attender: Steven Veloz MD [facility] Medical 10/03/2020 12:00:00 AM EST JEFF ([facility]) Steven Veloz MD: [address] [place] [address], Ph. Attender: Steven Veloz MD [facility] Medical 10/03/2020 12:00:00 AM EST JEFF ([facility]) Steven Veloz MD: [address] [place] [address], Ph. Attender: Steven Veloz MD [facility] Medical 10/03/2020 12:00:00 AM EST JEFF ([facility]) Steven Veloz MD: [address] [place] [phone], Ph. Attender: Steven Veloz MD [facility] Medical 10/03/2020 12:00:00 AM EST JEFF ([facility]) Attender: Corey Basilio 09/28/2020 12:00:00 AM EST [facility] ([facility]) Extended Individual Psychotherapy - 45 min Attender: Corey Baislio [facility] 09/26/2020 12:00:00 PM EST - 09/26/2020 12:00:00 PM EST [facility] ([facility]) Outpatient Attender: PARAM VENTURA [facility] 09/12 01:00:00 PM EST MEDENT ([facility] Outpatient Attender: Adrienne García [facility] 09/21/2020 09:30:00 AM EST - 09/21/2020 09:30:00 AM EST [facility] ([facility]) Attender: Adrienne Ricky [facility] 09/21/2020 12: 00:00 AM EST [facility] ([facility]) Extended Individual Psychotherapy - 45 min [facility] 09/11/[facility] 02:00:00 AM EST - 09/11/2020 02:00:00 AM EST [facility] ([facility]) Attender: Corey Basilio 09/11/2020 12:00:00 AM EST [facility] ([facility]) Steven Veloz MD: [address] [place] [address], Ph. Attender: Steven Veloz MD [facility] Medical 09/01/2020 12:00:00 AM EST JEFF ([facility]) Steven Veloz MD: [address] [place] [address], Ph. Attender: Steven Veloz MD [facility] Medical 09/01/2020 12:00:00 AM EST JEFF ([facility]) Steven Veloz MD: [address] [place] [address]1 504, Ph. Attender: Steven Veloz MD [facility] Medical 09/01/2020 12:00:00 AM EST JEFF ([facility]) Steven Veloz MD: [address] [place] [address]5 [address], Ph. Attender: Steven Veloz MD [facility] Medical 09/01/2020 12:00:00 AM EST JEFF ([facility]) Steven Veloz MD: [address] [place] [address]0 504, Ph. Attender: Steven Veloz MD [facility] Medical 09/01/2020 12:00:00 AM EST JEFF ([facility]) Steven Veloz MD: [address] [place] [address], Ph. Attender: Steven Veloz MD [facility] Medical 09/01/2020 12:00:00 AM EST JEFF ([facility]) Steven Veloz MD: [address] [place] [address]0 504, Ph. Attender: Steven Veloz MD [facility] Medical 09/01/2020 12:00:00 AM EST JEFF ([facility]) Steven Veloz MD: [address] [place] [address]2 504, Ph. Attender: Steven Veloz MD [facility] Medical 09/01/2020 12:00:00 AM EST JEFF ([facility]) Steven Veloz MD: [address] [place] [address]4 504, Ph. Attender: Steven Veloz MD [facility] Medical 09/01/2020 12:00:00 AM EST JEFF ([facility]) Steven Veloz MD: [address] [place] [address]0 504, Ph. Attender: Steven Veloz MD [facility] Medical 09/01/2020 12:00:00 AM EST JEFF ([facility]) Steven Veloz MD: [address] [place] [address]1 504, Ph. Attender: Steven Veloz MD [facility] Medical 09/01/2020 12:00:00 AM EST JEFF ([facility]) Steven Veloz MD: [address] [place] [address]6 504, Ph. Attender: Steven Veloz MD [facility] Medical 09/01/2020 12:00:00 AM EST JEFF ([facility]) Steven Veloz MD: [address] [place] [address]5 504, Ph. Attender: Steven Veloz MD [facility] Medical 09/01/2020 12:00:00 AM EST JEFF ([facility]) Steven Veloz MD: [address] [place] [address]2 504, Ph. Attender: Steven Veloz MD [facility] Medical 09/01/2020 12:00:00 AM EST JEFF ([facility]) Steven Veloz MD: [address] [place] [address]1 504, Ph. Attender: Steven Veloz MD [facility] Medical 09/01/2020 12:00:00 AM EST JEFF ([facility]) Steven Veloz MD: [address] [place] [address]4 504, Ph. Attender: Steven Veloz MD [facility] Medical 08/25/2020 12:00:00 AM EST JEFF ([facility]) Steven Veloz MD: [address] [place] [address]3 [address], Ph. Attender: Steven Veloz MD [facility] Medical 08/25/2020 12:00:00 AM EST JEFF ([facility]) Steven Veloz MD: [address] [place] [address]4 504, Ph. Attender: Steven Veloz MD [facility] Medical 08/25/2020 12:00:00 AM EST JEFF ([facility]) Steven Veloz MD: [address] [place] [address]4 504, Ph. Attender: Steven Veloz MD [facility] Medical 08/25/2020 12:00:00 AM EST JEFF ([facility]) Steven Veloz MD: [address] [place] [address]2 504, Ph. Attender: Steven Veloz MD [facility] Medical 08/25/2020 12:00:00 AM EST JEFF ([facility]) Steven Veloz MD: [address] [place] [address]0 504, Ph. Attender: Steven Veloz MD [facility] Medical 08/25/2020 12:00:00 AM EST JEFF ([facility]) Steven Veloz MD: [address] [place] [address]3 504, Ph. Attender: Steven Veloz MD [facility] Medical 08/25/2020 12:00:00 AM EST JEFF ([facility]) Steven Veloz MD: [address] [place] [address]-6 504, Ph. Attender: Steven Veloz MD [facility] Medical 08/25/2020 12:00:00 AM EST JEFF ([facility]) Steven Veloz MD: [address] [place] [address]1 504, Ph. Attender: Steven Veloz MD [facility] Medical 08/25/2020 12:00:00 AM EST JEFF ([facility]) Steven Veloz MD: [address] [place] [address]5 504, Ph. Attender: Steven Veloz MD [facility] Medical 08/25/2020 12:00:00 AM EST JEFF ([facility]) Steven Veloz MD: [address] [place] [address]2 504, Ph. Attender: Steven Veloz MD [facility] Medical 08/25/2020 12:00:00 AM EST JEFF ([facility]) Steven Veloz MD: [address] [place] [address]-6 504, Ph. Attender: Steven Veloz MD [facility] Medical 08/25/2020 12:00:00 AM EST JEFF ([facility]) Steven Veloz MD: [address] [place] [phone], Ph. Attender: Steven Veloz MD [facility] Medical 08/25/2020 12:00:00 AM EST JEFF ([facility]) Steven Veloz MD: [address] [place] [address]-5 504, Ph. Attender: Steven Veloz MD [facility] Medical 08/25/2020 12:00:00 AM EST JEFF ([facility]) Steven Veloz MD: [address] [place] [phone], Ph. Attender: Steven Veloz MD [facility] Medical 08/25/2020 12:00:00 AM EST JEFF ([facility]) Outpatient Attender: Adrienne García [facility] 08/24/2020 09:30:00 AM EST - 08/24/2020 09:30:00 AM EST [facility] ([facility]) Attender: Adrienne García [facility] 08/24/2020 12: 00:00 AM EST [facility] ([facility]) Outpatient Attender: LIAM SHAH NP Physical Therapy 02:15:00 PM EST MEDENT ([facility]) Brief Individual Psychotherapy - 30 min Attender: Cesilia rivera [facility] 08/17/2020 12:00:00 PM EST - 08/17/2020 12:00:00 PM EST [facility] ([facility]) Attender: Cesilia Narvaez 08/17/2020 12:00:00 AM EST [facility] ([facility]) Outpatient Attender: JLUIS HINTON 08/10/2020 02:40:00 PM EDT [facility] Steven Veloz MD: [address] [place], [place] [address], [place] [address]-3 504, Ph. Attender: Steven Veloz MD [facility] Medical 08/10/2020 12:00:00 AM EDT JEFF ([facility]) Steven Veloz MD: [address] [place] [address]7 [address], Ph. Attender: Steven Veloz MD [facility] Medical 08/10/2020 12:00:00 AM EDT JEFF ([facility]) Steven Veloz MD: [address] [place] [address]-7 504, Ph. Attender: Steven Veloz MD [facility] Medical 08/10/2020 12:00:00 AM EDT JEFF ([facility]) Steven Veloz MD: [address] [place] [address]3 504, Ph. Attender: Steven Veloz MD [facility] Medical 08/10/2020 12:00:00 AM EDT JEFF ([facility]) Steven Veloz MD: [address] [place] [address]5 504, Ph. Attender: Steven Veloz MD [facility] Medical 08/10/2020 12:00:00 AM EDT JEFF ([facility]) Steven Veloz MD: [address] [place] [address]9 [address], Ph. Attender: Steven Veloz MD [facility] Medical 08/10/2020 12:00:00 AM EDT JEFF ([facility]) Steven Veloz MD: [address] [place] [address]1 504, Ph. Attender: Steven Veloz MD [facility] Medical 08/10/2020 12:00:00 AM EDT JEFF ([facility]) Steven Veloz MD: [address] [place] [address]-0 504, Ph. Attender: Steven Veloz MD [facility] Medical 08/10/2020 12:00:00 AM EDT JEFF ([facility]) Steven Veloz MD: [address] [place] [address]6 504, Ph. Attender: Steven Veloz MD [facility] Medical 08/10/2020 12:00:00 AM EDT JEFF ([facility]) Steven Veloz MD: [address] [place] [address]6 504, Ph. Attender: Steven Veloz MD [facility] Medical 08/10/2020 12:00:00 AM EDT JEFF ([facility]) Steven Veloz MD: [address] [place] [address]2 504, Ph. Attender: Steven Veloz MD [facility] Medical 08/10/2020 12:00:00 AM EDT JEFF ([facility]) Steven Veloz MD: [address] [place] [address]-2 504, Ph. Attender: Steven Veloz MD [facility] Medical 08/10/2020 12:00:00 AM EDT JEFF ([facility]) Steven Veloz MD: [address] [place] [address]8 504, Ph. Attender: Steven Veloz MD [facility] Medical 08/10/2020 12:00:00 AM EDT JEFF ([facility]) Steven Veloz MD: [address] [place] [address]-6 504, Ph. Attender: Steven Veloz MD [facility] Medical 08/10/2020 12:00:00 AM EDT JEFF ([facility]) Steven Veloz MD: [address] [place] [address]-0 504, Ph. Attender: Steven Veloz MD [facility] Medical 08/10/2020 12:00:00 AM EDT JEFF ([facility]) Steven Veloz MD: [address] [place] [address]-7 504, Ph. Attender: Steven Veloz MD [facility] Medical 08/10/2020 12:00:00 AM EDT JEFF ([facility]) Steven Veloz MD: [address] [place] [address]-5 504, Ph. Attender: Steven Veloz MD [facility] Medical 08/10/2020 12:00:00 AM EDT JEFF ([facility]) Outpatient Attender: Kinza BELLA 07/28/2020 02: 10:01 PM EDT [facility] Outpatient Attender: JLUIS BAZZI 07/28/2020 01:17:00 PM EDT [facility] Outpatient Attender: Adrienne García [facility] 07/25/2020 09:00:00 AM EDT - 07/25/2020 09:00:00 AM EDT [facility] ([facility]) Attender: Adrienne García [facility] 07/25/2020 12: 00:00 AM EDT [facility] ([facility]) Brief Individual Psychotherapy - 30 min Attender: Cesilia rivera [facility] 07/20/2020 04:00:00 AM EDT - 07/20/2020 04:00:00 AM EDT [facility] ([facility]) Attender: Cesilia Narvaez 07/20/2020 12:00:00 AM EDT [facility] ([facility]) Outpatient Attender: Kinza BELLA FP 07/19/2020 08: 05:59 AM EDT [facility] TEMPMHCTelemed 30" Psych[facility] 07/06/2020 04:30:00 AM EDT - 07/06/2020 04:30:00 AM EDT [facility] ([facility]) Attender: Cesilia Bryanan 07/06/2020 12:00:00 AM EDT [facility] ([facility]) Outpatient Attender: Kinza PARKBC FP 07/05/2020 10: 30:05 AM EDT [facility] Outpatient Attender: Kinza PARKBC FP 06/22/2020 02: 49:39 PM EDT [facility] TEMPMHCTelemed 30" Psychotherapy [facility] 06/16/2020 04:30:00 AM EDT - 06/16/2020 04:30:00 AM EDT [facility] ([facility]) Attender: Cesilia Brice 06/16/2020 12:00:00 AM EDT [facility] ([facility]) Outpatient Attender: LIAM SHAH LABEL CUTTER Physical Therapy 02:45:00 PM EDT MEDENT ([facility]) Functional Status Immunizations Vaccine Date Status Description Data Source(s) COVID-19, mRNA, LNP-S, PF, 100 mcg/0.5 mL dose 01/10/2021 04 :55:18 PM EDT completed .5 mL [facility]) COVID-19, mRNA, LNP-S, PF, 100 mcg/0.5 mL dose 01/10/2021 04 :55:18 PM EDT completed .5 mL JEFF ([facility]) COVID-19, mRNA, LNP-S, PF, 100 mcg/0.5 mL dose 01/10/2021 04 :55:18 PM EDT completed .5 mL JEFF ([facility]) COVID-19, mRNA, LNP-S, PF, 100 mcg/0.5 mL dose 01/10/2021 04 :55:18 PM ED[facility], mRNA, LNP-S, PF, 100 mcg/0.5 mL dose 01/10/2021 04 :55:18 PM EDT completed .5 mL TRINIDAD ([facility]) COVID-19, mRNA, LNP-S, PF, 100 mcg/0.5 mL dose 01/10/2021 04 :55:18 PM EDT completed .5 mL [facility]) COVID-19, mRNA, LNP-S, PF, 100 mcg/0.5 mL dose 01/10/2021 04 :55:18 PM EDT completed .5 mL [facility]) COVID-19, mRNA, LNP-S, PF, 100 mcg/0.5 mL dose 01/10/2021 04 :55:18 PM EDT completed .5 mL [facility]) COVID-19, mRNA, LNP-S, PF, 100 mcg/0.5 mL dose 01/10/2021 04 :55:18 PM EDT completed .5 mL TRINIDAD ([facility]) COVID-19, mRNA, LNP-S, PF, 100 mcg/0.5 mL dose 01/10/2021 04 :55:18 PM EDT completed .5 mL [facility]) COVID-19 VACCINE Moderna 01/10/2021 12:00:00 AM EDT completed [employer] Vaccine Series Complete: YESThis Data wa s Submitted to [facility] Via [employer]. COVID-19, mRNA, LNP-S, PF, 100 mcg/0.5 mL dose 12/14/2020 05 :16:13 PM EST completed .5 mL [facility]) COVID-19, mRNA, LNP-S, PF, 100 mcg/0.5 mL dose 12/14/2020 05 :16:13 PM EST completed .5 mL [facility]) COVID-19, mRNA, LNP-S, PF, 100 mcg/0.5 mL dose 12/14/2020 05 :16:13 PM EST completed .5 mL TR[facility]IDAD ([facility]) COVID-19, mRNA, LNP-S, PF, 100 mcg/0.5 mL dose 12/14/2020 05 :16:13 PM EST completed .5 mL [facility]) COVID-19, mRNA, LNP-S, PF, 100 mcg/0.5 mL dose 12/14/2020 05 :16:13 PM EST completed .5 mL TRINIDAD ([facility]) COVID-19, mRNA, LNP-S, PF, 100 mcg/0.5 mL dose 12/14/2020 05 :16:13 PM EST completed .5 mL [facility]) COVID-19, mRNA, LNP-S, PF, 100 mcg/0.5 mL dose 12/14/2020 05 :16:13 PM EST completed .5 mL [facility]) COVID-19, mRNA, LNP-S, PF, 100 mcg/0.5 mL dose 12/14/2020 05 :16:13 PM EST completed .5 mL [facility]) COVID-19, mRNA, LNP-S, PF, 100 mcg/0.5 mL dose 12/14/2020 05 :16:13 PM EST completed .5 mL [facility]) COVID-19, mRNA, LNP-S, PF, 100 mcg/0.5 mL dose 12/14/2020 05 :16:13 PM EST completed .5 mL [facility]) COVID-19, mRNA, LNP-S, PF, 100 mcg/0.5 mL dose 12/14/2020 05 :16:13 PM EST completed .5 mL [facility]) COVID-19 VACCINE Moderna 12/14/2020 12:00:00 AM EST completed [employer] Vaccine Series Complete: NOThis Data was Submitted to [facility] Via [employer] New in 2011. IIV4 08/10/2020 03:51:00 PM EDT completed .5 mL JEFF ([facility]) New in 2011. IIV4 08/10/2020 03:51:00 PM EDT completed .5 mL JEFF ([facility]) New in 2011. IIV4 08/10/2020 03:51:00 PM EDT completed .5 mL JEFF ([facility]) New in 2011. IIV4 08/10/2020 03:51:00 PM EDT completed .5 mL JEFF ([facility]) New in 2011. IIV4 08/10/2020 03:51:00 PM EDT completed .5 mL JEFF ([facility]) New in 2011. IIV4 08/10/2020 03:51:00 PM EDT completed .5 mL JEFF ([facility]) New in 2011. IIV4 08/10/2020 03:51:00 PM EDT completed .5 mL JEFF ([facility]) New in 2011. IIV4 08/10/2020 03:51:00 PM EDT completed .5 mL JEFF ([facility]) New in 2011. IIV4 08/10/2020 03:51:00 PM EDT completed .5 mL JEFF ([facility]) New in 2011. IIV4 08/10/2020 03:51:00 PM EDT completed .5 mL JEFF ([facility]) New in 2011. IIV4 08/10/2020 03:51:00 PM EDT completed .5 mL JEFF ([facility]) New in 2011. IIV4 08/10/2020 03:51:00 PM EDT completed .5 mL JEFF ([facility] New in 2011. IIV4 08/10/2020 03:51:00 PM EDT completed .5 mL JEFF ([facility]) New in 2011. IIV4 08/10/2020 03:51:00 PM EDT completed .5 mL JEFF ([facility]) New in 2011. IIV4 08/10/2020 03:51:00 PM EDT completed .5 mL JEFF ([facility]) Medications Medication Brand Name Start [...] propionate 0.05 MG/ACTUAT Metered Dose Shamir al [place] 50 mcg/actuation FLUTICASONE PROPIONATE 07/21/2021 12:00:00 AM [...] 12:00:00 AM EDT completed Alcohol Prep Pads TRINIDAD ([facility]) ALCOHOL ANTISEPTIC PADS 06/20/2021 12:00:00 [...] 30 mg by mouth completed <td ID="Medic ationRxNorm_4">074990</td><td ID="MedicationMedication_4">buspirone</td><td ID="MedicationRoute_4">by mouth</td><td ID="MedicationRouteConcept_4">Q46449</td><td ID="MedicationStartDate_4">06/07/2021</td><td ID="MedicationStopDate_4">08/06/2021</td><td ID="MedicationDosageFrequency_4">twice a day</td><td ID="MedicationDuration_4">30</td><td ID="MedicationFormulaStrength_4">30 mg</td><td ID="MedicationDosageForm_4">tablet</td><td ID="MedicationDosageFormCode_4"></td><td ID="MedicationDosageDescription_4"></td><td ID="MedicationMedicationId_4">[id number]</td><td ID="MedicationAccount_4">[id number]</td><td ID="MedicationNpid_4">[id number]</td><td ID="MedicationAuthorFirstName_4">Susanne</td><td ID="MedicationAuthorLastName_4">Irvin</td><td ID="MedicationTaxonomyCode_4">[id number]</td><td ID="MedicationTaxonomyDesc_4">Nurse Practitioner</td><td ID="MedicationPhoneNumber_4">[phone]</td> [facility] ([facility]) buspirone hydrochloride 30 MG Oral Tablet buspirone 2020 12:00:00 AM EDT 30 mg by mouth completed <td ID="Medic ationRxNorm_6">236877</td><td ID="MedicationMedication_6">buspirone</td><td ID="MedicationRoute_6">by mouth</td><td ID="MedicationRouteConcept_6">D53743</td><td ID="MedicationStartDate_6">06/07/2021</td><td ID="MedicationStopDate_6">08/06/2021</td><td ID="MedicationDosageFrequency_6">twice a day</td><td ID="MedicationDuration_6">30</td><td ID="MedicationFormulaStrength_6">30 mg</td><td ID="MedicationDosageForm_6">tablet</td><td ID="MedicationDosageFormCode_6"></td><td ID="MedicationDosageDescription_6"></td><td ID="MedicationMedicationId_6">[id number]</td><td ID="MedicationAccount_6">[id number]</td><td ID="MedicationNpid_6">[id number]</td><td ID="MedicationAuthorFirstName_6">Susanne</td><td ID="MedicationAuthorLastName_6">Irvin</td><td ID="MedicationTaxonomyCode_6">[id number]</td><td ID="MedicationTaxonomyDesc_6">Nurse Practitioner</td><td ID="MedicationPhoneNumber_6">[phone]</td> [facility] ([facility]) 400 mg 06/05/2021 12:00:00 AM EDT capsule 90 TAKE ONE CAPSULE BY MOUTH THREE TIMES A DAY TAKE ONE CAPSULE BY MOUTH THREE TIMES A DAY SOLD: 06/05/2021 [facility] 800 mg 05/30/2021 12:00:00 AM EDT [...] AM EDT 0.5 mg completed <td ID="Medicat ionRxNorm_3">629744</td><td ID="MedicationMedication_3">clonazepam</td><td ID="MedicationRoute_3"></td><td ID="MedicationRouteConcept_3"></td><td ID="MedicationStartDate_3">05/30/2021</td><td ID="MedicationStopDate_3">06/29/2021</td><td ID="MedicationDosageFrequency_3"></td><td ID="MedicationDuration_3">30</td><td ID="MedicationFormulaStrength_3">0.5 mg</td><td ID="MedicationDosageForm_3">tablet</td><td ID="MedicationDosageFormCode_3"></td><td ID="MedicationDosageDescription_3"></td><td ID="MedicationMedicationId_3">[id number]</td><td ID="MedicationAccount_3">[id number]</td><td ID="MedicationNpid_3">[id number]</td><td ID="MedicationAuthorFirstName_3">Russell</td><td ID="MedicationAuthorLastName_3">Montenegro</td><td ID="MedicationTaxonomyCode_3">[id number]</td><td ID="MedicationTaxonomyDesc_3">Nurse Practitioner</td><td ID="MedicationPhoneNumber_3">[phone]</td> [facility] ([facility]) 800 mg 05/30/2021 12:00:00 AM EDT tablet [...] 30 mg by mouth completed <td ID="Medic ationRxNorm_5">184320</td><td ID="MedicationMedication_5">buspirone</td><td ID="MedicationRoute_5">by mouth</td><td ID="MedicationRouteConcept_5">T87184</td><td ID="MedicationStartDate_5">04/10/2021</td><td ID="MedicationStopDate_5">05/10/2021</td><td ID="MedicationDosageFrequency_5">twice a day</td><td ID="MedicationDuration_5">30</td><td ID="MedicationFormulaStrength_5">30 mg</td><td ID="MedicationDosageForm_5">tablet</td><td ID="MedicationDosageFormCode_5"></td><td ID="MedicationDosageDescription_5"></td><td ID="MedicationMedicationId_5">[id number]</td><td ID="MedicationAccount_5">[id number]</td><td ID="MedicationNpid_5">[id number]</td><td ID="MedicationAuthorFirstName_5">Adrienne</td><td ID="MedicationAuthorLastName_5">Ricky</td><td ID="MedicationTaxonomyCode_5">[id number]</td><td ID="MedicationTaxonomyDesc_5">Psychiatric/Mental Health</td><td ID="MedicationPhoneNumber_5">[phone]</td> [facility] ([facility]) 30 mg 04/10/2021 12:00:00 AM EDT tablet [...] TABLET BY MOUTH AT BEDTIME SOLD: 04/29/2021 [facility] Trazodone Hydrochloride 100 MG Oral [...] AM EDT 100 mg completed <td ID="Medica tionRxNorm_5">113940</td><td ID="MedicationMedication_5">trazodone</td><td ID="MedicationRoute_5"></td><td ID="MedicationRouteConcept_5"></td><td ID="MedicationStartDate_5">03/22/2021</td><td ID="MedicationStopDate_5"></td><td ID="MedicationDosageFrequency_5">at bedtime</td><td ID="MedicationDuration_5"></td><td ID="MedicationFormulaStrength_5">100 mg</td><td ID="MedicationDosageForm_5">tablet</td><td ID="MedicationDosageFormCode_5"></td><td ID="MedicationDosageDescription_5"></td><td ID="MedicationMedicationId_5">[id number]</td><td ID="MedicationAccount_5">[id number]</td><td ID="MedicationNpid_5">[id number]</td><td ID="MedicationAuthorFirstName_5">Adrienne</td><td ID="MedicationAuthorLastName_5">Yeso</td><td ID="MedicationTaxonomyCode_5">[id number]</td><td ID="MedicationTaxonomyDesc_5">Psychiatric/Mental Health</td><td ID="MedicationPhoneNumber_5">[phone]</td> [facility] ([facility]) Trazodone Hydrochloride 100 MG Oral Tablet trazodone 03/22 12:00:00 AM EDT 100 mg completed <td ID="Medica tionRxNorm_4">898535</td><td ID="MedicationMedication_4">trazodone</td><td ID="MedicationRoute_4"></td><td ID="MedicationRouteConcept_4"></td><td ID="MedicationStartDate_4">03/22/2021</td><td ID="MedicationStopDate_4"></td><td ID="MedicationDosageFrequency_4">at bedtime</td><td ID="MedicationDuration_4"></td><td ID="MedicationFormulaStrength_4">100 mg</td><td ID="MedicationDosageForm_4">tablet</td><td ID="MedicationDosageFormCode_4"></td><td ID="MedicationDosageDescription_4"></td><td ID="MedicationMedicationId_4">[id number]</td><td ID="MedicationAccount_4">[id number]</td><td ID="MedicationNpid_4">[id number]</td><td ID="MedicationAuthorFirstName_4">Adrienne</td><td ID="MedicationAuthorLastName_4">Yeso</td><td ID="MedicationTaxonomyCode_4">[id number]</td><td ID="MedicationTaxonomyDesc_4">Psychiatric/Mental Health</td><td ID="MedicationPhoneNumber_4">[phone]</td> [facility] ([facility]) Trazodone Hydrochloride 100 MG Oral Tablet trazodone 03/22 12:00:00 AM EDT 100 mg completed <td ID="Medica tionRxNorm_2">985648</td><td ID="MedicationMedication_2">trazodone</td><td ID="MedicationRoute_2"></td><td ID="MedicationRouteConcept_2"></td><td ID="MedicationStartDate_2">03/22/2021</td><td ID="MedicationStopDate_2"></td><td ID="MedicationDosageFrequency_2">at bedtime</td><td ID="MedicationDuration_2"></td><td ID="MedicationFormulaStrength_2">100 mg</td><td ID="MedicationDosageForm_2">tablet</td><td ID="MedicationDosageFormCode_2"></td><td ID="MedicationDosageDescription_2"></td><td ID="MedicationMedicationId_2">00337</td><td ID="MedicationAccount_2">[id number]</td><td ID="MedicationNpid_2">[id number]</td><td ID="MedicationAuthorFirstName_2">Adrienne</td><td ID="MedicationAuthorLastName_2">Ricky</td><td ID="MedicationTaxonomyCode_2">[id number]</td><td ID="MedicationTaxonomyDesc_2">Psychiatric/Mental Health</td><td ID="MedicationPhoneNumber_2">[phone]</td> [facility] ([facility]) 800 mg 03/06/2021 12:00:00 AM EDT tablet [...] 150 mg by mouth completed <td ID="Medica tionRxNorm_4">037571</td><td ID="MedicationMedication_4">lamotrigine</td><td ID="MedicationRoute_4">by mouth</td><td ID="MedicationRouteConcept_4">S24234</td><td ID="MedicationStartDate_4">02/22/2021</td><td ID="MedicationStopDate_4"></td><td ID="MedicationDosageFrequency_4">once a day</td><td ID="MedicationDuration_4"></td><td ID="MedicationFormulaStrength_4">150 mg</td><td ID="MedicationDosageForm_4">tablet</td><td ID="MedicationDosageFormCode_4"></td><td ID="MedicationDosageDescription_4"></td><td ID="MedicationMedicationId_4">09535</td><td ID="MedicationAccount_4">[id number]</td><td ID="MedicationNpid_4">[id number]</td><td ID="MedicationAuthorFirstName_4">Adrienne</td><td ID="MedicationAuthorLastName_4">Ricky</td><td ID="MedicationTaxonomyCode_4">[id number]</td><td ID="MedicationTaxonomyDesc_4">Psychiatric/Mental Health</td><td ID="MedicationPhoneNumber_4">[phone]</td> [facility] ([facility]) ziprasidone 80 MG Oral Capsule ZIPRASIDONE HCL [...] TABLET BY MOUTH EVERY DAY SOLD: 03/29/2021 [facility] buspirone hydrochloride 30 MG Oral Tablet buspirone 2020 12:00:00 AM EDT 30 mg by mouth completed <td ID="Medic ationRxNorm_3">363039</td><td ID="MedicationMedication_3">buspirone</td><td ID="MedicationRoute_3">by mouth</td><td ID="MedicationRouteConcept_3">H48500</td><td ID="MedicationStartDate_3">02/22/2021</td><td ID="MedicationStopDate_3"></td><td ID="MedicationDosageFrequency_3">three times a day</td><td ID="MedicationDuration_3"></td><td ID="MedicationFormulaStrength_3">30 mg</td><td ID="MedicationDosageForm_3">tablet</td><td ID="MedicationDosageFormCode_3"></td><td ID="MedicationDosageDescription_3"></td><td ID="MedicationMedicationId_3">22579</td><td ID="MedicationAccount_3">[id number]</td><td ID="MedicationNpid_3">[id number]</td><td ID="MedicationAuthorFirstName_3">Adrienne</td><td ID="MedicationAuthorLastName_3">Ricky</td><td ID="MedicationTaxonomyCode_3">[id number]</td><td ID="MedicationTaxonomyDesc_3">Psychiatric/Mental Health</td><td ID="MedicationPhoneNumber_3">[phone]</td> [facility] ([facility]) 150 mg 02/22/2021 12:00:00 AM EDT tablet 30 TAKE ONE TABLET BY MOUTH EVERY DAY TAKE ONE TABLET BY MOUTH EVERY DAY SOLD: 02/22/2021 [facility] lamotrigine 150 MG Oral Tablet lamotrigine 02/22/2021 12:00:00 AM EDT 150 mg by mouth completed <td ID="Medica tionRxNorm_3">870951</td><td ID="MedicationMedication_3">lamotrigine</td><td ID="MedicationRoute_3">by mouth</td><td ID="MedicationRouteConcept_3">D83764</td><td ID="MedicationStartDate_3">02/22/2021</td><td ID="MedicationStopDate_3"></td><td ID="MedicationDosageFrequency_3">once a day</td><td ID="MedicationDuration_3"></td><td ID="MedicationFormulaStrength_3">150 mg</td><td ID="MedicationDosageForm_3">tablet</td><td ID="MedicationDosageFormCode_3"></td><td ID="MedicationDosageDescription_3"></td><td ID="MedicationMedicationId_3">07209</td><td ID="MedicationAccount_3">[id number]</td><td ID="MedicationNpid_3">[id number]</td><td ID="MedicationAuthorFirstName_3">Adrienne</td><td ID="MedicationAuthorLastName_3">Ricky</td><td ID="MedicationTaxonomyCode_3">[id number]</td><td ID="MedicationTaxonomyDesc_3">Psychiatric/Mental Health</td><td ID="MedicationPhoneNumber_3">[phone]</td> [facility] ([facility]) 25 mcg 02/22/2021 12:00:00 AM EDT tablet [...] 150 mg by mouth completed <td ID="Medica tionRxNorm_5">696703</td><td ID="MedicationMedication_5">lamotrigine</td><td ID="MedicationRoute_5">by mouth</td><td ID="MedicationRouteConcept_5">M86030</td><td ID="MedicationStartDate_5">02/22/2021</td><td ID="MedicationStopDate_5">08/06/2021</td><td ID="MedicationDosageFrequency_5">once a day</td><td ID="MedicationDuration_5">30</td><td ID="MedicationFormulaStrength_5">150 mg</td><td ID="MedicationDosageForm_5">tablet</td><td ID="MedicationDosageFormCode_5"></td><td ID="MedicationDosageDescription_5"></td><td ID="MedicationMedicationId_5">81352</td><td ID="MedicationAccount_5">[id number]</td><td ID="MedicationNpid_5">[id number]</td><td ID="MedicationAuthorFirstName_5">Susanne</td><td ID="MedicationAuthorLastName_5">Irvin</td><td ID="MedicationTaxonomyCode_5">[id number]</td><td ID="MedicationTaxonomyDesc_5">Nurse Practitioner</td><td ID="MedicationPhoneNumber_5">[phone]</td> [facility] ([facility]) Clonazepam 0.5 MG Oral Tablet clonazepam 02/22/2021 12:00:00 AM EDT 0.5 mg by mouth completed <td ID="Medica tionRxNorm_2">236665</td><td ID="MedicationMedication_2">clonazepam</td><td ID="MedicationRoute_2">by mouth</td><td ID="MedicationRouteConcept_2">R42318</td><td ID="MedicationStartDate_2">02/22/2021</td><td ID="MedicationStopDate_2"></td><td ID="MedicationDosageFrequency_2"></td><td ID="MedicationDuration_2"></td><td ID="MedicationFormulaStrength_2">0.5 mg</td><td ID="MedicationDosageForm_2">tablet</td><td ID="MedicationDosageFormCode_2"></td><td ID="MedicationDosageDescription_2">as needed</td><td ID="MedicationMedicationId_2">83461</td><td ID="MedicationAccount_2">[id number]</td><td ID="MedicationNpid_2">[id number]</td><td ID="MedicationAuthorFirstName_2">Adrienne</td><td ID="MedicationAuthorLastName_2">Yeso</td><td ID="MedicationTaxonomyCode_2">[id number]</td><td ID="MedicationTaxonomyDesc_2">Psychiatric/Mental Health</td><td ID="MedicationPhoneNumber_2">[phone]</td> [facility] ([facility]) 25 mcg 02/22/2021 12:00:00 AM EDT tablet [...] 0.5 mg by mouth completed <td ID="Medica tionRxNorm_6">980892</td><td ID="MedicationMedication_6">clonazepam</td><td ID="MedicationRoute_6">by mouth</td><td ID="MedicationRouteConcept_6">A27104</td><td ID="MedicationStartDate_6">12/11/2020</td><td ID="MedicationStopDate_6"></td><td ID="MedicationDosageFrequency_6"></td><td ID="MedicationDuration_6"></td><td ID="MedicationFormulaStrength_6">0.5 mg</td><td ID="MedicationDosageForm_6">tablet</td><td ID="MedicationDosageFormCode_6"></td><td ID="MedicationDosageDescription_6">as needed</td><td ID="MedicationMedicationId_6">77831</td><td ID="MedicationAccount_6">[id number]</td><td ID="MedicationNpid_6">[id number]</td><td ID="MedicationAuthorFirstName_6">Russell</td><td ID="MedicationAuthorLastName_6">Montenegro</td><td ID="MedicationTaxonomyCode_6">[id number]</td><td ID="MedicationTaxonomyDesc_6">Nurse Practitioner</td><td ID="MedicationPhoneNumber_6">[phone]</td> [facility] ([facility]) Propranolol Hydrochloride 40 MG Oral Tablet propranolol 12/11/2020 12:00:00 AM EST 40 mg by mouth completed <td ID="MedicationRxNorm_5">097571</td><td ID="MedicationMedication_5">propranolol</td><td ID="MedicationRoute_5">by mouth</td><td ID="MedicationRouteConcept_5">Z56554</td><td ID="MedicationStartDate_5">12/11/2020</td><td ID="MedicationStopDate_5"></td><td ID="MedicationDosageFrequency_5">twice a day</td><td ID="MedicationDuration_5"></td><td ID="MedicationFormulaStrength_5">40 mg</td><td ID="MedicationDosageForm_5">tablet</td><td ID="MedicationDosageFormCode_5"></td><td ID="MedicationDosageDescription_5"></td><td ID="MedicationMedicationId_5">78900</td><td ID="MedicationAccount_5">[id number]</td><td ID="MedicationNpid_5">[id number]</td><td ID="MedicationAuthorFirstName_5">Adrienne</td><td ID="MedicationAuthorLastName_5">Ricky</td><td ID="MedicationTaxonomyCode_5">[id number]</td><td ID="MedicationTaxonomyDesc_5">Psychiatric/Mental Health</td><td ID="MedicationPhoneNumber_5">[phone]</td> [facility] ([facility]) Propranolol Hydrochloride 40 MG Oral Tablet propranolol 12/11/2020 12:00:00 AM EST 40 mg completed <td ID ="MedicationRxNorm_8">694753</td><td ID="MedicationMedication_8">propranolol</td><td ID="MedicationRoute_8"></td><td ID="MedicationRouteConcept_8"></td><td ID="MedicationStartDate_8">12/11/2020</td><td ID="MedicationStopDate_8">12/11/2020</td><td ID="MedicationDosageFrequency_8"></td><td ID="MedicationDuration_8"></td><td ID="MedicationFormulaStrength_8">40 mg</td><td ID="MedicationDosageForm_8">tablet</td><td ID="MedicationDosageFormCode_8"></td><td ID="MedicationDosageDescription_8"></td><td ID="MedicationMedicationId_8">24810</td><td ID="MedicationAccount_8">[id number]</td><td ID="MedicationNpid_8"></td><td ID="MedicationAuthorFirstName_8"></td><td ID="MedicationAuthorLastName_8"></td><td ID="MedicationTaxonomyCode_8"></td><td ID="MedicationTaxonomyDesc_8"></td><td ID="MedicationPhoneNumber_8"></td> [facility] ([facility]) Propranolol Hydrochloride 40 MG Oral Tablet propranolol 12/11/2020 12:00:00 AM EST 40 mg by mouth completed <td ID="MedicationRxNorm_3">029570</td><td ID="MedicationMedication_3">propranolol</td><td ID="MedicationRoute_3">by mouth</td><td ID="MedicationRouteConcept_3">W84654</td><td ID="MedicationStartDate_3">12/11/2020</td><td ID="MedicationStopDate_3"></td><td ID="MedicationDosageFrequency_3">twice a day</td><td ID="MedicationDuration_3"></td><td ID="MedicationFormulaStrength_3">40 mg</td><td ID="MedicationDosageForm_3">tablet</td><td ID="MedicationDosageFormCode_3"></td><td ID="MedicationDosageDescription_3"></td><td ID="MedicationMedicationId_3">40112</td><td ID="MedicationAccount_3">[id number]</td><td ID="MedicationNpid_3">[id number]</td><td ID="MedicationAuthorFirstName_3">Adrienne</td><td ID="MedicationAuthorLastName_3">Yeso</td><td ID="MedicationTaxonomyCode_3">[id number]</td><td ID="MedicationTaxonomyDesc_3">Psychiatric/Mental Health</td><td ID="MedicationPhoneNumber_3">[phone]</td> [facility] ([facility]) Propranolol Hydrochloride 40 MG Oral Tablet propranolol 12/11/2020 12:00:00 AM EST 40 mg by mouth completed <td ID="MedicationRxNorm_2">710680</td><td ID="MedicationMedication_2">propranolol</td><td ID="MedicationRoute_2">by mouth</td><td ID="MedicationRouteConcept_2">J66966</td><td ID="MedicationStartDate_2">12/11/2020</td><td ID="MedicationStopDate_2"></td><td ID="MedicationDosageFrequency_2">twice a day</td><td ID="MedicationDuration_2"></td><td ID="MedicationFormulaStrength_2">40 mg</td><td ID="MedicationDosageForm_2">tablet</td><td ID="MedicationDosageFormCode_2"></td><td ID="MedicationDosageDescription_2"></td><td ID="MedicationMedicationId_2">02059</td><td ID="MedicationAccount_2">[id number]</td><td ID="MedicationNpid_2">[id number]</td><td ID="MedicationAuthorFirstName_2">Adrienne</td><td ID="MedicationAuthorLastName_2">Ricky</td><td ID="MedicationTaxonomyCode_2">[id number]</td><td ID="MedicationTaxonomyDesc_2">Psychiatric/Mental Health</td><td ID="MedicationPhoneNumber_2">[phone]</td> [facility] ([facility]) ziprasidone 80 MG Oral Capsule ZIPRASIDONE HCL 12/11/2020 12:00: 00 AM EST capsule 60 TAKE ONE CAPSULE BY MOUTH TWICE A DAY TAKE ONE CAPSULE BY MOUTH TWICE A DAY SOLD: 01/16/2021 [facility] Propranolol Hydrochloride 40 MG Oral Tablet propranolol 12/11/2020 12:00:00 AM EST 40 mg by mouth completed <td ID="MedicationRxNorm_1">121552</td><td ID="MedicationMedication_1">propranolol</td><td ID="MedicationRoute_1">by mouth</td><td ID="MedicationRouteConcept_1">N99160</td><td ID="MedicationStartDate_1">12/11/2020</td><td ID="MedicationStopDate_1"></td><td ID="MedicationDosageFrequency_1">twice a day</td><td ID="MedicationDuration_1"></td><td ID="MedicationFormulaStrength_1">40 mg</td><td ID="MedicationDosageForm_1">tablet</td><td ID="MedicationDosageFormCode_1"></td><td ID="MedicationDosageDescription_1"></td><td ID="MedicationMedicationId_1">34830</td><td ID="MedicationAccount_1">[id number]</td><td ID="MedicationNpid_1">[id number]</td><td ID="MedicationAuthorFirstName_1">Adrienne</td><td ID="MedicationAuthorLastName_1">Yeso</td><td ID="MedicationTaxonomyCode_1">[id number]</td><td ID="MedicationTaxonomyDesc_1">Psychiatric/Mental Health</td><td ID="MedicationPhoneNumber_1">[phone]</td> [facility] ([facility]) 1 mg 12/11/2020 12:00:00 AM EST capsule [...] 0.5 mg by mouth completed <td ID="Medica tionRxNorm_5">538411</td><td ID="MedicationMedication_5">clonazepam</td><td ID="MedicationRoute_5">by mouth</td><td ID="MedicationRouteConcept_5">O93629</td><td ID="MedicationStartDate_5">12/11/2020</td><td ID="MedicationStopDate_5"></td><td ID="MedicationDosageFrequency_5"></td><td ID="MedicationDuration_5"></td><td ID="MedicationFormulaStrength_5">0.5 mg</td><td ID="MedicationDosageForm_5">tablet</td><td ID="MedicationDosageFormCode_5"></td><td ID="MedicationDosageDescription_5">as needed</td><td ID="MedicationMedicationId_5">42356</td><td ID="MedicationAccount_5">[id number]</td><td ID="MedicationNpid_5">[id number]</td><td ID="MedicationAuthorFirstName_5">Russell</td><td ID="MedicationAuthorLastName_5">Montenegro</td><td ID="MedicationTaxonomyCode_5">[id number]</td><td ID="MedicationTaxonomyDesc_5">Nurse Practitioner</td><td ID="MedicationPhoneNumber_5">[phone]</td> [facility] ([facility]) 40 mg 12/04/2020 12:00:00 AM EST capsule,delayed [...] = 1 TABLET SOLD: 11/23/2020 [facility] BLOOD SUGAR DIAGNOSTIC 11/16/2020 12:00:00 AM EST [...] BY MOUTH TWICE A DAY SOLD: 12/26/2020 [facility] BLOOD SUGAR DIAGNOSTIC 11/16/2020 12:00:00 AM EST strip 50 USE DIRECTED UP TO TWO TIMES A DAY USE DIRECTED UP TO TWO TIMES A DAY SOLD: 12/26/2020 [facility] BLOOD SUGAR DIAGNOSTIC 11/16/2020 12:00:00 AM EST [...] AM EST [facility] ([facility]) 800 mg 11/11/2020 12:00:00 AM EST tablet [...] DOSE = ONE TABLET SOLD: 11/05/2020 [facility] buspirone hydrochloride 15 MG Oral Tablet BUSPIRONE HCL 10/30/2020 12:00:00 AM EST tablet 90 TAKE ONE TABLET BY MOUTH THR EE TIMES A DAY TAKE ONE TABLET BY MOUTH THREE TIMES A DAY SOLD: 02/01/2021 [facility] buspirone hydrochloride 15 MG Oral Tablet BUSPIRONE HCL 10/30/2020 12:00:00 AM EST tablet 90 TAKE ONE TABLET BY MOUTH THR EE TIMES A DAY TAKE ONE TABLET BY MOUTH THREE TIMES A DAY SOLD: 11/01/2020 [facility] ziprasidone 80 MG Oral Capsule ziprasidone HCl 10/25/2020 12:00:00 AM EST 80 mg by mouth completed <td ID="Me dicationRxNorm_1">317360</td><td ID="MedicationMedication_1">ziprasidone HCl</td><td ID="MedicationRoute_1">by mouth</td><td ID="MedicationRouteConcept_1">M58205</td><td ID="MedicationStartDate_1">10/25/2020</td><td ID="MedicationStopDate_1"></td><td ID="MedicationDosageFrequency_1">twice a day</td><td ID="MedicationDuration_1"></td><td ID="MedicationFormulaStrength_1">80 mg</td><td ID="MedicationDosageForm_1">capsule</td><td ID="MedicationDosageFormCode_1"></td><td ID="MedicationDosageDescription_1"></td><td ID="MedicationMedicationId_1">41770</td><td ID="MedicationAccount_1">[id number]</td><td ID="MedicationNpid_1">[id number]</td><td ID="MedicationAuthorFirstName_1">Adrienne</td><td ID="MedicationAuthorLastName_1">Ricky</td><td ID="MedicationTaxonomyCode_1">[id number]</td><td ID="MedicationTaxonomyDesc_1">Psychiatric/Mental Health</td><td ID="MedicationPhoneNumber_1">[phone]</td> [facility] ([facility]) ziprasidone 80 MG Oral Capsule ziprasidone HCl 10/25/2020 12:00:00 AM EST 80 mg by mouth completed <td ID="Me dicationRxNorm_3">212778</td><td ID="MedicationMedication_3">ziprasidone HCl</td><td ID="MedicationRoute_3">by mouth</td><td ID="MedicationRouteConcept_3">I66946</td><td ID="MedicationStartDate_3">10/25/2020</td><td ID="MedicationStopDate_3"></td><td ID="MedicationDosageFrequency_3">twice a day</td><td ID="MedicationDuration_3"></td><td ID="MedicationFormulaStrength_3">80 mg</td><td ID="MedicationDosageForm_3">capsule</td><td ID="MedicationDosageFormCode_3"></td><td ID="MedicationDosageDescription_3"></td><td ID="MedicationMedicationId_3">13472</td><td ID="MedicationAccount_3">[id number]</td><td ID="MedicationNpid_3">[id number]</td><td ID="MedicationAuthorFirstName_3">Russell</td><td ID="MedicationAuthorLastName_3">Montenegro</td><td ID="MedicationTaxonomyCode_3">[id number]</td><td ID="MedicationTaxonomyDesc_3">Nurse Practitioner</td><td ID="MedicationPhoneNumber_3">[phone]</td> [facility] ([facility]) ziprasidone 80 MG Oral Capsule ziprasidone HCl 10/25/2020 12:00:00 AM EST 80 mg by mouth completed <td ID="Me dicationRxNorm_7">581250</td><td ID="MedicationMedication_7">ziprasidone HCl</td><td ID="MedicationRoute_7">by mouth</td><td ID="MedicationRouteConcept_7">D47512</td><td ID="MedicationStartDate_7">10/25/2020</td><td ID="MedicationStopDate_7"></td><td ID="MedicationDosageFrequency_7">twice a day</td><td ID="MedicationDuration_7"></td><td ID="MedicationFormulaStrength_7">80 mg</td><td ID="MedicationDosageForm_7">capsule</td><td ID="MedicationDosageFormCode_7"></td><td ID="MedicationDosageDescription_7"></td><td ID="MedicationMedicationId_7">[id number]</td><td ID="MedicationAccount_7">[id number]</td><td ID="MedicationNpid_7">[id number]</td><td ID="MedicationAuthorFirstName_7">Russell</td><td ID="MedicationAuthorLastName_7">[place]</td><td ID="MedicationTaxonomyCode_7">[id number]</td><td ID="MedicationTaxonomyDesc_7">Nurse Practitioner</td><td ID="MedicationPhoneNumber_7">[phone]</td> [facility] ([facility]) ziprasidone 80 MG Oral Capsule ziprasidone HCl 10/25/2020 12:00:00 AM EST 80 mg by mouth completed <td ID="Me dicationRxNorm_4">[id number]</td><td ID="MedicationMedication_4">ziprasidone HCl</td><td ID="MedicationRoute_4">by mouth</td><td ID="MedicationRouteConcept_4">R30088</td><td ID="MedicationStartDate_4">10/25/2020</td><td ID="MedicationStopDate_4">08/06/2021</td><td ID="MedicationDosageFrequency_4">twice a day</td><td ID="MedicationDuration_4">30</td><td ID="MedicationFormulaStrength_4">80 mg</td><td ID="MedicationDosageForm_4">capsule</td><td ID="MedicationDosageFormCode_4"></td><td ID="MedicationDosageDescription_4"></td><td ID="MedicationMedicationId_4">[id number]</td><td ID="MedicationAccount_4">[id number]</td><td ID="MedicationNpid_4">[id number]</td><td ID="MedicationAuthorFirstName_4">Susanne</td><td ID="MedicationAuthorLastName_4">Irvin</td><td ID="MedicationTaxonomyCode_4">[id number]</td><td ID="MedicationTaxonomyDesc_4">Nurse Practitioner</td><td ID="MedicationPhoneNumber_4">[phone]</td> [facility] ([facility]) ziprasidone 80 MG Oral Capsule ziprasidone HCl 10/25/2020 12:00:00 AM EST 80 mg by mouth completed <td ID="Me dicationRxNorm_2">889599</td><td ID="MedicationMedication_2">ziprasidone HCl</td><td ID="MedicationRoute_2">by mouth</td><td ID="MedicationRouteConcept_2">W89827</td><td ID="MedicationStartDate_2">10/25/2020</td><td ID="MedicationStopDate_2"></td><td ID="MedicationDosageFrequency_2">twice a day</td><td ID="MedicationDuration_2"></td><td ID="MedicationFormulaStrength_2">80 mg</td><td ID="MedicationDosageForm_2">capsule</td><td ID="MedicationDosageFormCode_2"></td><td ID="MedicationDosageDescription_2"></td><td ID="MedicationMedicationId_2">[id number]</td><td ID="MedicationAccount_2">[id number]</td><td ID="MedicationNpid_2">[id number]</td><td ID="MedicationAuthorFirstName_2">Adrienne</td><td ID="MedicationAuthorLastName_2">Ricky</td><td ID="MedicationTaxonomyCode_2">[id number]</td><td ID="MedicationTaxonomyDesc_2">Psychiatric/Mental Health</td><td ID="MedicationPhoneNumber_2">[phone]</td> [facility] ([facility]) 20 mg 10/25/2020 12:00:00 AM EST tablet [...] 80 mg by mouth completed <td ID="Me dicationRxNorm_6">630236</td><td ID="MedicationMedication_6">ziprasidone HCl</td><td ID="MedicationRoute_6">by mouth</td><td ID="MedicationRouteConcept_6">M41566</td><td ID="MedicationStartDate_6">10/25/2020</td><td ID="MedicationStopDate_6">08/06/2021</td><td ID="MedicationDosageFrequency_6">twice a day</td><td ID="MedicationDuration_6">30</td><td ID="MedicationFormulaStrength_6">80 mg</td><td ID="MedicationDosageForm_6">capsule</td><td ID="MedicationDosageFormCode_6"></td><td ID="MedicationDosageDescription_6"></td><td ID="MedicationMedicationId_6">[id number]</td><td ID="MedicationAccount_6">[id number]</td><td ID="MedicationNpid_6">[id number]</td><td ID="MedicationAuthorFirstName_6">Susanne</td><td ID="MedicationAuthorLastName_6">Irvin</td><td ID="MedicationTaxonomyCode_6">[id number]</td><td ID="MedicationTaxonomyDesc_6">Nurse Practitioner</td><td ID="MedicationPhoneNumber_6">[phone]</td> [facility] ([facility]) 20 mg 10/25/2020 12:00:00 AM EST tablet [...] DOSE = 1 TABLET SOLD: 2020 [facility] ziprasidone 80 MG Oral Capsule ZIPRASIDONE [...] SUGAR THREE TIMES A DAY SOLD: 09/12/2020 [facility] Fenofibrate 134 MG Oral Capsule [...] 1 mg by mouth completed <td ID="Medicat ionRxNorm_3">480472</td><td ID="MedicationMedication_3">prazosin</td><td ID="MedicationRoute_3">by mouth</td><td ID="MedicationRouteConcept_3">K11898</td><td ID="MedicationStartDate_3">08/24/2020</td><td ID="MedicationStopDate_3"></td><td ID="MedicationDosageFrequency_3">at bedtime</td><td ID="MedicationDuration_3"></td><td ID="MedicationFormulaStrength_3">1 mg</td><td ID="MedicationDosageForm_3">capsule</td><td ID="MedicationDosageFormCode_3"></td><td ID="MedicationDosageDescription_3"></td><td ID="MedicationMedicationId_3">[id number]</td><td ID="MedicationAccount_3">[id number]</td><td ID="MedicationNpid_3">[id number]</td><td ID="MedicationAuthorFirstName_3">Adrienne</td><td ID="MedicationAuthorLastName_3">Ricky</td><td ID="MedicationTaxonomyCode_3">[id number]</td><td ID="MedicationTaxonomyDesc_3">Psychiatric/Mental Health</td><td ID="MedicationPhoneNumber_3">[phone]</td> [facility]) 1 mg 08/24/2020 12:00:00 AM EST capsule 30 TAKE ONE CAPSULE BY MOUTH EVERY DAY AT BEDTIME TAKE ONE CAPSULE BY MOUTH EVERY DAY AT BEDTIME SOLD: [facility] 100 mg 08/24/2020 12:00:00 AM [...] 1 mg by mouth completed <td ID="Medicat ionRxNorm_2">726396</td><td ID="MedicationMedication_2">prazosin</td><td ID="MedicationRoute_2">by mouth</td><td ID="MedicationRouteConcept_2">G56706</td><td ID="MedicationStartDate_2">08/24/2020</td><td ID="MedicationStopDate_2"></td><td ID="MedicationDosageFrequency_2">at bedtime</td><td ID="MedicationDuration_2"></td><td ID="MedicationFormulaStrength_2">1 mg</td><td ID="MedicationDosageForm_2">capsule</td><td ID="MedicationDosageFormCode_2"></td><td ID="MedicationDosageDescription_2"></td><td ID="MedicationMedicationId_2">[id number]</td><td ID="MedicationAccount_2">[id number]</td><td ID="MedicationNpid_2">[id number]</td><td ID="MedicationAuthorFirstName_2">Adrienne</td><td ID="MedicationAuthorLastName_2">Ricky</td><td ID="MedicationTaxonomyCode_2">[id number]</td><td ID="MedicationTaxonomyDesc_2">Psychiatric/Mental Health</td><td ID="MedicationPhoneNumber_2">[phone]</td> [facility] ([facility]) Clonazepam 0.5 MG Oral Tablet clonazepam 08/24/2020 12:00:00 AM EST 0.5 mg by mouth completed <td ID="Medica tionRxNorm_2">903043</td><td ID="MedicationMedication_2">clonazepam</td><td ID="MedicationRoute_2">by mouth</td><td ID="MedicationRouteConcept_2">Y37982</td><td ID="MedicationStartDate_2">08/24/2020</td><td ID="MedicationStopDate_2"></td><td ID="MedicationDosageFrequency_2">once a day</td><td ID="MedicationDuration_2"></td><td ID="MedicationFormulaStrength_2">0.5 mg</td><td ID="MedicationDosageForm_2">tablet</td><td ID="MedicationDosageFormCode_2"></td><td ID="MedicationDosageDescription_2"></td><td ID="MedicationMedicationId_2">[id number]</td><td ID="MedicationAccount_2">[id number]</td><td ID="MedicationNpid_2">[id number]</td><td ID="MedicationAuthorFirstName_2">Susanne</td><td ID="MedicationAuthorLastName_2">Irvin</td><td ID="MedicationTaxonomyCode_2">[id number]</td><td ID="MedicationTaxonomyDesc_2">Nurse Practitioner</td><td ID="MedicationPhoneNumber_2">[phone]</td> [facility] ([facility]) Clonazepam 0.5 MG Oral Tablet clonazepam 08/24/2020 12:00:00 AM EST 0.5 mg by mouth completed <td ID="Medica tionRxNorm_7">071832</td><td ID="MedicationMedication_7">clonazepam</td><td ID="MedicationRoute_7">by mouth</td><td ID="MedicationRouteConcept_7">F59457</td><td ID="MedicationStartDate_7">08/24/2020</td><td ID="MedicationStopDate_7">12/11/2020</td><td ID="MedicationDosageFrequency_7">once a day</td><td ID="MedicationDuration_7"></td><td ID="MedicationFormulaStrength_7">0.5 mg</td><td ID="MedicationDosageForm_7">tablet</td><td ID="MedicationDosageFormCode_7"></td><td ID="MedicationDosageDescription_7"></td><td ID="MedicationMedicationId_7">[id number]</td><td ID="MedicationAccount_7">[id number]</td><td ID="MedicationNpid_7">[id number]</td><td ID="MedicationAuthorFirstName_7">Susanne</td><td ID="MedicationAuthorLastName_7">Irvin</td><td ID="MedicationTaxonomyCode_7">[id number]</td><td ID="MedicationTaxonomyDesc_7">Nurse Practitioner</td><td ID="MedicationPhoneNumber_7">[phone]</td> [facility] ([facility]) Prazosin 1 MG Oral Capsule prazosin 08/24/2020 12:00:00 AM EST 1 mg by mouth completed <td ID="Medicat ionRxNorm_4">128700</td><td ID="MedicationMedication_4">prazosin</td><td ID="MedicationRoute_4">by mouth</td><td ID="MedicationRouteConcept_4">E19943</td><td ID="MedicationStartDate_4">08/24/2020</td><td ID="MedicationStopDate_4"></td><td ID="MedicationDosageFrequency_4">at bedtime</td><td ID="MedicationDuration_4"></td><td ID="MedicationFormulaStrength_4">1 mg</td><td ID="MedicationDosageForm_4">capsule</td><td ID="MedicationDosageFormCode_4"></td><td ID="MedicationDosageDescription_4"></td><td ID="MedicationMedicationId_4">[id number]</td><td ID="MedicationAccount_4">[id number]</td><td ID="MedicationNpid_4">[id number]</td><td ID="MedicationAuthorFirstName_4">Adrienne</td><td ID="MedicationAuthorLastName_4">Ricky</td><td ID="MedicationTaxonomyCode_4">[id number]</td><td ID="MedicationTaxonomyDesc_4">Psychiatric/Mental Health</td><td ID="MedicationPhoneNumber_4">[phone]</td> [facility] ([facility]) 100 mg 08/24/2020 12:00:00 AM EST tablet 30 TAKE ONE TABLET BY MOUTH EVERY DAY TAKE ONE TABLET BY MOUTH EVERY DAY SOLD: 08/24/2020 [facility] Clonazepam 0.5 MG Oral Tablet clonazepam 08/24/2020 12:00:00 AM EST 0.5 mg by mouth completed <td ID="Medica tionRxNorm_3">067854</td><td ID="MedicationMedication_3">clonazepam</td><td ID="MedicationRoute_3">by mouth</td><td ID="MedicationRouteConcept_3">L21220</td><td ID="MedicationStartDate_3">08/24/2020</td><td ID="MedicationStopDate_3"></td><td ID="MedicationDosageFrequency_3">once a day</td><td ID="MedicationDuration_3"></td><td ID="MedicationFormulaStrength_3">0.5 mg</td><td ID="MedicationDosageForm_3">tablet</td><td ID="MedicationDosageFormCode_3"></td><td ID="MedicationDosageDescription_3"></td><td ID="MedicationMedicationId_3">[id number]</td><td ID="MedicationAccount_3">[id number]</td><td ID="MedicationNpid_3">[id number]</td><td ID="MedicationAuthorFirstName_3">Adrienne</td><td ID="MedicationAuthorLastName_3">Yeso</td><td ID="MedicationTaxonomyCode_3">[id number]</td><td ID="MedicationTaxonomyDesc_3">Psychiatric/Mental Health</td><td ID="MedicationPhoneNumber_3">[phone]</td> [facility] ([facility]) Jc Greene 08/18/2020 12:00:00 AM EST ORAL com pleted [facility] ([facility] ) 5 mg 08/18/2020 12:00:00 AM [...] ONE CAPSULE BY MOUTH EVERY DAY IN [facility] MORNING ON AN EMPTY STOMACH, AT LEST 30 MINUTES BEFORE BREAKFAST SOLD: 09/12/2020 [facility] empagliflozin 10 MG Oral Tablet [Jardiance] Jardiance 08/17/2020 12:00:00 AM EST ORAL completed [facility] ([facility] ) 40 mg 08/17/2020 12:00:00 AM EST capsule,delayed release (DR/EC) 30 TAKE ONE CAPSULE BY MOUTH EVERY DAY IN THE MORNING ON AN EMPTY STOMACH, AT LEST 30 MINUTES BEFORE BREAKFAST TAKE ONE CAPSULE BY MOUTH EVERY DAY IN [facility] MORNING ON AN EMPTY STOMACH, AT LEST 30 MINUTES BEFORE BREAKFAST SOLD: 11/08/2020 [facility] 40 mg 08/17/2020 12:00:00 AM EST capsule,delayed release (DR/EC) 30 TAKE ONE CAPSULE BY MOUTH EVERY DAY IN THE MORNING ON AN EMPTY STOMACH, AT LEST 30 MINUTES BEFORE BREAKFAST TAKE ONE CAPSULE BY MOUTH EVERY DAY IN [facility] MORNING ON AN EMPTY STOMACH, AT LEST 30 MINUTES BEFORE BREAKFAST SOLD: 08/17/2020 [facility] 40 mg 08/17/2020 12:00:00 AM EST capsule,delayed release (DR/EC) 30 TAKE ONE CAPSULE BY MOUTH EVERY DAY IN THE MORNING ON AN EMPTY STOMACH, AT LEST 30 MINUTES BEFORE BREAKFAST TAKE ONE CAPSULE BY MOUTH EVERY DAY IN [facility] MORNING ON AN EMPTY STOMACH, AT [...] 0.5 mg by mouth completed <td ID="Medica tionRxNorm_5">168007</td><td ID="MedicationMedication_5">clonazepam</td><td ID="MedicationRoute_5">by mouth</td><td ID="MedicationRouteConcept_5">M41447</td><td ID="MedicationStartDate_5">08/14/2020</td><td ID="MedicationStopDate_5">08/24/2020</td><td ID="MedicationDosageFrequency_5">once a day</td><td ID="MedicationDuration_5">10</td><td ID="MedicationFormulaStrength_5">0.5 mg</td><td ID="MedicationDosageForm_5">tablet</td><td ID="MedicationDosageFormCode_5"></td><td ID="MedicationDosageDescription_5">as directed</td><td ID="MedicationMedicationId_5">[id number]</td><td ID="MedicationAccount_5">[id number]</td><td ID="MedicationNpid_5">[id number]</td><td ID="MedicationAuthorFirstName_5">Adrienne</td><td ID="MedicationAuthorLastName_5">Ricky</td><td ID="MedicationTaxonomyCode_5">[id number]</td><td ID="MedicationTaxonomyDesc_5">Psychiatric/Mental Health</td><td ID="MedicationPhoneNumber_5">[phone]</td> [facility] ([facility]) Clonazepam 0.5 MG Oral Tablet clonazepam 08/14/2020 12:00:00 AM EST 0.5 mg by mouth completed <td ID="Medica tionRxNorm_3">664886</td><td ID="MedicationMedication_3">clonazepam</td><td ID="MedicationRoute_3">by mouth</td><td ID="MedicationRouteConcept_3">Y56239</td><td ID="MedicationStartDate_3">08/14/2020</td><td ID="MedicationStopDate_3">08/24/2020</td><td ID="MedicationDosageFrequency_3">once a day</td><td ID="MedicationDuration_3">10</td><td ID="MedicationFormulaStrength_3">0.5 mg</td><td ID="MedicationDosageForm_3">tablet</td><td ID="MedicationDosageFormCode_3"></td><td ID="MedicationDosageDescription_3">as directed</td><td ID="MedicationMedicationId_3">[id number]</td><td ID="MedicationAccount_3">[id number]</td><td ID="MedicationNpid_3">[id number]</td><td ID="MedicationAuthorFirstName_3">Adrienne</td><td ID="MedicationAuthorLastName_3">Yeso</td><td ID="MedicationTaxonomyCode_3">[id number]</td><td ID="MedicationTaxonomyDesc_3">Psychiatric/Mental Health</td><td ID="MedicationPhoneNumber_3">[phone]</td> [facility] ([facility]) lamotrigine 100 MG Oral Tablet [Lamictal] Lamictal 07/25/2020 1 2:00:00 AM EDT 100 mg by mouth completed <td ID="Me dicationRxNorm_9">399103</td><td ID="MedicationMedication_9">Lamictal</td><td ID="MedicationRoute_9">by mouth</td><td ID="MedicationRouteConcept_9">Q88688</td><td ID="MedicationStartDate_9">07/25/2020</td><td ID="MedicationStopDate_9">02/18/2021</td><td ID="MedicationDosageFrequency_9">once a day</td><td ID="MedicationDuration_9">30</td><td ID="MedicationFormulaStrength_9">100 mg</td><td ID="MedicationDosageForm_9">tablet</td><td ID="MedicationDosageFormCode_9"></td><td ID="MedicationDosageDescription_9"></td><td ID="MedicationMedicationId_9">[id number]</td><td ID="MedicationAccount_9">[id number]</td><td ID="MedicationNpid_9">[id number]</td><td ID="MedicationAuthorFirstName_9">Susanne</td><td ID="MedicationAuthorLastName_9">Irvin</td><td ID="MedicationTaxonomyCode_9">[id number]</td><td ID="MedicationTaxonomyDesc_9">Nurse Practitioner</td><td ID="MedicationPhoneNumber_9">[phone]</td> [facility] ([facility]) lamotrigine 100 MG Oral Tablet [Lamictal] Lamictal 07/25/2020 1 2:00:00 AM EDT 100 mg by mouth completed <td ID="Me dicationRxNorm_8">599195</td><td ID="MedicationMedication_8">Lamictal</td><td ID="MedicationRoute_8">by mouth</td><td ID="MedicationRouteConcept_8">F58852</td><td ID="MedicationStartDate_8">07/25/2020</td><td ID="MedicationStopDate_8">11/22/2020</td><td ID="MedicationDosageFrequency_8">once a day</td><td ID="MedicationDuration_8">30</td><td ID="MedicationFormulaStrength_8">100 mg</td><td ID="MedicationDosageForm_8">tablet</td><td ID="MedicationDosageFormCode_8"></td><td ID="MedicationDosageDescription_8"></td><td ID="MedicationMedicationId_8">[id number]</td><td ID="MedicationAccount_8">[id number]</td><td ID="MedicationNpid_8">[id number]</td><td ID="MedicationAuthorFirstName_8">Adrienne</td><td ID="MedicationAuthorLastName_8">Ricky</td><td ID="MedicationTaxonomyCode_8">[id number]</td><td ID="MedicationTaxonomyDesc_8">Psychiatric/Mental Health</td><td ID="MedicationPhoneNumber_8">[phone]</td> [facility] ([facility]) lamotrigine 100 MG Oral Tablet [Lamictal] Lamictal 07/25/2020 1 2:00:00 AM EDT 100 mg by mouth completed <td ID="Me dicationRxNorm_5">697307</td><td ID="MedicationMedication_5">Lamictal</td><td ID="MedicationRoute_5">by mouth</td><td ID="MedicationRouteConcept_5">J58906</td><td ID="MedicationStartDate_5">07/25/2020</td><td ID="MedicationStopDate_5">11/22/2020</td><td ID="MedicationDosageFrequency_5">once a day</td><td ID="MedicationDuration_5">30</td><td ID="MedicationFormulaStrength_5">100 mg</td><td ID="MedicationDosageForm_5">tablet</td><td ID="MedicationDosageFormCode_5"></td><td ID="MedicationDosageDescription_5"></td><td ID="MedicationMedicationId_5">[id number]</td><td ID="MedicationAccount_5">[id number]</td><td ID="MedicationNpid_5">[id number]</td><td ID="MedicationAuthorFirstName_5">Adrienne</td><td ID="MedicationAuthorLastName_5">Ricky</td><td ID="MedicationTaxonomyCode_5">[id number]</td><td ID="MedicationTaxonomyDesc_5">Psychiatric/Mental Health</td><td ID="MedicationPhoneNumber_5">[phone]</td> [facility] ([facility]) lamotrigine 100 MG Oral Tablet [Lamictal] Lamictal 07/25/2020 1 2:00:00 AM EDT 100 mg by mouth completed <td ID="Me dicationRxNorm_6">946542</td><td ID="MedicationMedication_6">Lamictal</td><td ID="MedicationRoute_6">by mouth</td><td ID="MedicationRouteConcept_6">P65009</td><td ID="MedicationStartDate_6">07/25/2020</td><td ID="MedicationStopDate_6">02/18/2021</td><td ID="MedicationDosageFrequency_6">once a day</td><td ID="MedicationDuration_6">30</td><td ID="MedicationFormulaStrength_6">100 mg</td><td ID="MedicationDosageForm_6">tablet</td><td ID="MedicationDosageFormCode_6"></td><td ID="MedicationDosageDescription_6"></td><td ID="MedicationMedicationId_6">53405</td><td ID="MedicationAccount_6">[id number]</td><td ID="MedicationNpid_6">[id number]</td><td ID="MedicationAuthorFirstName_6">Susanne</td><td ID="MedicationAuthorLastName_6">Irvin</td><td ID="MedicationTaxonomyCode_6">[id number]</td><td ID="MedicationTaxonomyDesc_6">Nurse Practitioner</td><td ID="MedicationPhoneNumber_6">[phone]</td> [facility] ([facility]) 100 mg 07/25/2020 12:00:00 AM EDT tablet 30 TAKE ONE TABLET BY MOUTH EVERY DAY TAKE ONE TABLET BY MOUTH EVERY DAY SOLD: 07/25/2020 [facility] lamotrigine 100 MG Oral Tablet [Lamictal] Lamictal 07/25/2020 1 2:00:00 AM EDT 100 mg by mouth completed <td ID="Me dicationRxNorm_4">020995</td><td ID="MedicationMedication_4">Lamictal</td><td ID="MedicationRoute_4">by mouth</td><td ID="MedicationRouteConcept_4">C22740</td><td ID="MedicationStartDate_4">07/25/2020</td><td ID="MedicationStopDate_4">02/18/2021</td><td ID="MedicationDosageFrequency_4">once a day</td><td ID="MedicationDuration_4">30</td><td ID="MedicationFormulaStrength_4">100 mg</td><td ID="MedicationDosageForm_4">tablet</td><td ID="MedicationDosageFormCode_4"></td><td ID="MedicationDosageDescription_4"></td><td ID="MedicationMedicationId_4">[id number]</td><td ID="MedicationAccount_4">[id number]</td><td ID="MedicationNpid_4">[id number]</td><td ID="MedicationAuthorFirstName_4">Susanne</td><td ID="MedicationAuthorLastName_4">Irvin</td><td ID="MedicationTaxonomyCode_4">[id number]</td><td ID="MedicationTaxonomyDesc_4">Nurse Practitioner</td><td ID="MedicationPhoneNumber_4">[phone]</td> [facility] ([facility]) lamotrigine 100 MG Oral Tablet [Lamictal] Lamictal 07/25/2020 1 2:00:00 AM EDT 100 mg by mouth completed <td ID="Me dicationRxNorm_7">042496</td><td ID="MedicationMedication_7">Lamictal</td><td ID="MedicationRoute_7">by mouth</td><td ID="MedicationRouteConcept_7">D67022</td><td ID="MedicationStartDate_7">07/25/2020</td><td ID="MedicationStopDate_7">02/18/2021</td><td ID="MedicationDosageFrequency_7">once a day</td><td ID="MedicationDuration_7">30</td><td ID="MedicationFormulaStrength_7">100 mg</td><td ID="MedicationDosageForm_7">tablet</td><td ID="MedicationDosageFormCode_7"></td><td ID="MedicationDosageDescription_7"></td><td ID="MedicationMedicationId_7">[id number]</td><td ID="MedicationAccount_7">[id number]</td><td ID="MedicationNpid_7">[id number]</td><td ID="MedicationAuthorFirstName_7">Susanne</td><td ID="MedicationAuthorLastName_7">Irvin</td><td ID="MedicationTaxonomyCode_7">[id number]</td><td ID="MedicationTaxonomyDesc_7">Nurse Practitioner</td><td ID="MedicationPhoneNumber_7">[phone]</td> [facility] ([facility]) 40 mg 07/19/2020 12:00:00 AM EDT tablet [...] AM EDT 25 mg completed <td ID="Me dicationRxNorm_3">979838</td><td ID="MedicationMedication_3">Lamictal</td><td ID="MedicationRoute_3"></td><td ID="MedicationRouteConcept_3"></td><td ID="MedicationStartDate_3">06/27/2020</td><td ID="MedicationStopDate_3"></td><td ID="MedicationDosageFrequency_3"></td><td ID="MedicationDuration_3"></td><td ID="MedicationFormulaStrength_3">25 mg</td><td ID="MedicationDosageForm_3">tablet</td><td ID="MedicationDosageFormCode_3"></td><td ID="MedicationDosageDescription_3"></td><td ID="MedicationMedicationId_3">69621</td><td ID="MedicationAccount_3">[id number]</td><td ID="MedicationNpid_3">[id number]</td><td ID="MedicationAuthorFirstName_3">Adrienne</td><td ID="MedicationAuthorLastName_3">Yeso</td><td ID="MedicationTaxonomyCode_3">[id number]</td><td ID="MedicationTaxonomyDesc_3">Psychiatric/Mental Health</td><td ID="MedicationPhoneNumber_3">[phone]</td> [facility] ([facility]) lamotrigine 25 MG Oral Tablet [Lamictal] Lamictal 06/27/2020 12 :00:00 AM EDT 25 mg completed <td ID="Me dicationRxNorm_4">660854</td><td ID="MedicationMedication_4">Lamictal</td><td ID="MedicationRoute_4"></td><td ID="MedicationRouteConcept_4"></td><td ID="MedicationStartDate_4">06/27/2020</td><td ID="MedicationStopDate_4"></td><td ID="MedicationDosageFrequency_4"></td><td ID="MedicationDuration_4"></td><td ID="MedicationFormulaStrength_4">25 mg</td><td ID="MedicationDosageForm_4">tablet</td><td ID="MedicationDosageFormCode_4"></td><td ID="MedicationDosageDescription_4"></td><td ID="MedicationMedicationId_4">[id number]</td><td ID="MedicationAccount_4">[id number]</td><td ID="MedicationNpid_4">[id number]</td><td ID="MedicationAuthorFirstName_4">Adrienne</td><td ID="MedicationAuthorLastName_4">Yeso</td><td ID="MedicationTaxonomyCode_4">[id number]</td><td ID="MedicationTaxonomyDesc_4">Psychiatric/Mental Health</td><td ID="MedicationPhoneNumber_4">[phone]</td> [facility] ([facility]) 25 mg 06/27/2020 12:00:00 AM EDT tablet [...] 80 mg by mouth completed <td ID="Me dicationRxNorm_5">370553</td><td ID="MedicationMedication_5">ziprasidone HCl</td><td ID="MedicationRoute_5">by mouth</td><td ID="MedicationRouteConcept_5">R10448</td><td ID="MedicationStartDate_5">06/20/2020</td><td ID="MedicationStopDate_5">09/23/2020</td><td ID="MedicationDosageFrequency_5">twice a day</td><td ID="MedicationDuration_5">30</td><td ID="MedicationFormulaStrength_5">80 mg</td><td ID="MedicationDosageForm_5">capsule</td><td ID="MedicationDosageFormCode_5"></td><td ID="MedicationDosageDescription_5"></td><td ID="MedicationMedicationId_5">10408</td><td ID="MedicationAccount_5">[id number]</td><td ID="MedicationNpid_5">[id number]</td><td ID="MedicationAuthorFirstName_5">Adrienne</td><td ID="MedicationAuthorLastName_5">Ricky</td><td ID="MedicationTaxonomyCode_5">[id number]</td><td ID="MedicationTaxonomyDesc_5">Psychiatric/Mental Health</td><td ID="MedicationPhoneNumber_5">[phone]</td> [facility] ([facility]) 400 mg 06/20/2020 12:00:00 AM EDT capsule [...] 0.5 mg by mouth completed <td ID="Medica tionRxNorm_4">389283</td><td ID="MedicationMedication_4">clonazepam</td><td ID="MedicationRoute_4">by mouth</td><td ID="MedicationRouteConcept_4">R46178</td><td ID="MedicationStartDate_4">05/26/2020</td><td ID="MedicationStopDate_4">08/17/2020</td><td ID="MedicationDosageFrequency_4">once a day</td><td ID="MedicationDuration_4">30</td><td ID="MedicationFormulaStrength_4">0.5 mg</td><td ID="MedicationDosageForm_4">tablet</td><td ID="MedicationDosageFormCode_4"></td><td ID="MedicationDosageDescription_4">as directed</td><td ID="MedicationMedicationId_4">[id number]</td><td ID="MedicationAccount_4">[id number]</td><td ID="MedicationNpid_4">[id number]</td><td ID="MedicationAuthorFirstName_4">Susanne</td><td ID="MedicationAuthorLastName_4">Irvin</td><td ID="MedicationTaxonomyCode_4">[id number]</td><td ID="MedicationTaxonomyDesc_4">Nurse Practitioner</td><td ID="MedicationPhoneNumber_4">[phone]</td> [facility] ([facility]) 40 mg 05/24/2020 12:00:00 AM EDT tablet [...] CAPSULE BY MOUTH EVERY DAY SOLD: 07/19/2020 [facility] Fenofibrate 134 MG Oral Capsule FENOFIBRATE,MICRONIZED 05/20 12:00:00 AM EDT capsule 30 TAKE ONE CAPSULE BY MOUTH EV TAKE ONE CAPSULE BY MOUTH EVERY DAY SOLD: 08/17/2020 [facility] Mirtazapine 15 MG Oral Tablet mirtazapine 05/01/2020 12:00:00 AM EDT 15 mg completed <td ID="Medicat ionRxNorm_5">253830</td><td ID="MedicationMedication_5">mirtazapine</td><td ID="MedicationRoute_5"></td><td ID="MedicationRouteConcept_5"></td><td ID="MedicationStartDate_5">05/01/2020</td><td ID="MedicationStopDate_5">06/30/2020</td><td ID="MedicationDosageFrequency_5">at bedtime</td><td ID="MedicationDuration_5">30</td><td ID="MedicationFormulaStrength_5">15 mg</td><td ID="MedicationDosageForm_5">tablet</td><td ID="MedicationDosageFormCode_5"></td><td ID="MedicationDosageDescription_5"></td><td ID="MedicationMedicationId_5">[id number]</td><td ID="MedicationAccount_5">[id number]</td><td ID="MedicationNpid_5">[id number]</td><td ID="MedicationAuthorFirstName_5">Adrienne</td><td ID="MedicationAuthorLastName_5">Yeso</td><td ID="MedicationTaxonomyCode_5">[id number]</td><td ID="MedicationTaxonomyDesc_5">Psychiatric/Mental Health</td><td ID="MedicationPhoneNumber_5">[phone]</td> [facility] ([facility]) ziprasidone 80 MG Oral Capsule ziprasidone HCl 04/24/2020 12:00:00 AM EDT 80 mg completed <td ID="Me dicationRxNorm_4">925812</td><td ID="MedicationMedication_4">ziprasidone HCl</td><td ID="MedicationRoute_4"></td><td ID="MedicationRouteConcept_4"></td><td ID="MedicationStartDate_4">04/24/2020</td><td ID="MedicationStopDate_4">06/19/2020</td><td ID="MedicationDosageFrequency_4">twice a day</td><td ID="MedicationDuration_4">30</td><td ID="MedicationFormulaStrength_4">80 mg</td><td ID="MedicationDosageForm_4">capsule</td><td ID="MedicationDosageFormCode_4"></td><td ID="MedicationDosageDescription_4"></td><td ID="MedicationMedicationId_4">[id number]</td><td ID="MedicationAccount_4">[id number]</td><td ID="MedicationNpid_4">[id number]</td><td ID="MedicationAuthorFirstName_4">Adrienne</td><td ID="MedicationAuthorLastName_4">Yeso</td><td ID="MedicationTaxonomyCode_4">[id number]</td><td ID="MedicationTaxonomyDesc_4">Psychiatric/Mental Health</td><td ID="MedicationPhoneNumber_4">[phone]</td> [facility] ([facility]) 25 mcg 04/21/2020 12:00:00 AM EDT tablet [...] 400 mg by mouth completed <td ID="Medica tionRxNorm_7">309598</td><td ID="MedicationMedication_7">gabapentin</td><td ID="MedicationRoute_7">by mouth</td><td ID="MedicationRouteConcept_7">Q62639</td><td ID="MedicationStartDate_7">03/13/2020</td><td ID="MedicationStopDate_7">07/04/2021</td><td ID="MedicationDosageFrequency_7">three times a day</td><td ID="MedicationDuration_7">30</td><td ID="MedicationFormulaStrength_7">400 mg</td><td ID="MedicationDosageForm_7">capsule</td><td ID="MedicationDosageFormCode_7"></td><td ID="MedicationDosageDescription_7"> </td><td ID="MedicationMedicationId_7">[id number]</td><td ID="MedicationAccount_7">[id number]</td><td ID="MedicationNpid_7">[id number]</td><td ID="MedicationAuthorFirstName_7">Susanne</td><td ID="MedicationAuthorLastName_7">Irvin</td><td ID="MedicationTaxonomyCode_7">[id number]</td><td ID="MedicationTaxonomyDesc_7">Nurse Practitioner</td><td ID="MedicationPhoneNumber_7">[phone]</td> [facility] ([facility]) gabapentin 400 MG Oral Capsule gabapentin 03/13/2020 12:00:00 AM EDT 400 mg by mouth completed <td ID="Medica tionRxNorm_3">[id number]</td><td ID="MedicationMedication_3">gabapentin</td><td ID="MedicationRoute_3">by mouth</td><td ID="MedicationRouteConcept_3">Q80909</td><td ID="MedicationStartDate_3">03/13/2020</td><td ID="MedicationStopDate_3">07/04/2021</td><td ID="MedicationDosageFrequency_3">three times a day</td><td ID="MedicationDuration_3">30</td><td ID="MedicationFormulaStrength_3">400 mg</td><td ID="MedicationDosageForm_3">capsule</td><td ID="MedicationDosageFormCode_3"></td><td ID="MedicationDosageDescription_3"> </td><td ID="MedicationMedicationId_3">[id number]</td><td ID="MedicationAccount_3">[id number]</td><td ID="MedicationNpid_3">[id number]</td><td ID="MedicationAuthorFirstName_3">Susanne</td><td ID="MedicationAuthorLastName_3">Irvin</td><td ID="MedicationTaxonomyCode_3">[id number]</td><td ID="MedicationTaxonomyDesc_3">Nurse Practitioner</td><td ID="MedicationPhoneNumber_3">[phone]</td> [facility] ([facility]) 8.6 mg 02/22/2020 12:00:00 AM EDT tablet [...] EDT 40 mg by mouth completed <td ID="MedicationRxNorm_6">170834</td><td ID="MedicationMedication_6">propranolol</td><td ID="MedicationRoute_6">by mouth</td><td ID="MedicationRouteConcept_6">O60887</td><td ID="MedicationStartDate_6">02/03/2020</td><td ID="MedicationStopDate_6">10/23/2020</td><td ID="MedicationDosageFrequency_6">twice a day</td><td ID="MedicationDuration_6">30</td><td ID="MedicationFormulaStrength_6">40 mg</td><td ID="MedicationDosageForm_6">tablet</td><td ID="MedicationDosageFormCode_6"></td><td ID="MedicationDosageDescription_6"></td><td ID="MedicationMedicationId_6">[id number]</td><td ID="MedicationAccount_6">[id number]</td><td ID="MedicationNpid_6">[id number]</td><td ID="MedicationAuthorFirstName_6">Adrienne</td><td ID="MedicationAuthorLastName_6">Yeso</td><td ID="MedicationTaxonomyCode_6">[id number]</td><td ID="MedicationTaxonomyDesc_6">Psychiatric/Mental Health</td><td ID="MedicationPhoneNumber_6">[phone]</td> [facility] ([facility]) Propranolol Hydrochloride 40 MG Oral Tablet propranolol 02/03/2020 12:00:00 AM EDT 40 mg by mouth completed <td ID="MedicationRxNorm_7">681489</td><td ID="MedicationMedication_7">propranolol</td><td ID="MedicationRoute_7">by mouth</td><td ID="MedicationRouteConcept_7">U69481</td><td ID="MedicationStartDate_7">02/03/2020</td><td ID="MedicationStopDate_7">10/23/2020</td><td ID="MedicationDosageFrequency_7">twice a day</td><td ID="MedicationDuration_7">30</td><td ID="MedicationFormulaStrength_7">40 mg</td><td ID="MedicationDosageForm_7">tablet</td><td ID="MedicationDosageFormCode_7"></td><td ID="MedicationDosageDescription_7"></td><td ID="MedicationMedicationId_7">[id number]</td><td ID="MedicationAccount_7">[id number]</td><td ID="MedicationNpid_7">[id number]</td><td ID="MedicationAuthorFirstName_7">Adrienne</td><td ID="MedicationAuthorLastName_7">Ricky</td><td ID="MedicationTaxonomyCode_7">[id number]</td><td ID="MedicationTaxonomyDesc_7">Psychiatric/Mental Health</td><td ID="MedicationPhoneNumber_7">[phone]</td> [facility] ([facility]) 31 gauge x 5/16" 01/26/2020 12:00:00 AM [...] buspirone hydr ochloride 10 MG Oral Tablet [facility] ([facility]) Clonidine Hydrochloride 0.2 MG Oral Tablet clonidine H Cl 0.2 mg tablet clonidine HCl 0.2 mg tablet completed clonidine hydrochloride 0.2 MG Oral Tablet JEFF ([facility]) Propranolol Hydrochloride 20 MG Oral Tablet propranolo l 20 mg tablet propranolol 20 mg tablet completed propranolol hydrochloride 20 MG Oral Tablet JEFF ([facility]) Isopropyl Alcohol 0.7 ML/ML Medicated Pad Alcohol Prep Pads Alco hol Prep Pads completed isopropyl alco hol 0.7 ML/ML Medicated Pad [facility] ([facility]) Docusate Sodium 100 MG Oral Capsule [DOK] DOK 100 mg capsule DOK 100 mg capsule completed docusate sodiu m 100 MG Oral Capsule [DOK] JEFF ([facility]) Triamcinolone Acetonide 1 MG/ML Topical Cream triamcinolone acetonide 0.1 % topical cream triamcinolone acetonide 0.1 % topical cream completed triamcinolone acetonide 1 MG/ML Topical Cream [facility] ([facility]) 0.5 ML dulaglutide 1.5 MG/ML Auto-Inject or [Trulicity] Trulicity 0.75 mg/0.5 mL subcutaneous pen injector Trulicity 0.75 mg/0.5 mL subcutaneous pen injector completed 0.5 ML dulaglu tide 1.5 MG/ML Auto-Injector [Trulicity] [facility]IDAD ([facility]) Famotidine 20 MG Oral Tablet famotidine 20 mg tablet famotidine 20 mg tablet completed famotidine 20 MG Oral Tablet [facility] ([facility]) Cephalexin 500 MG Oral Capsule cephalexin 500 mg capsu le cephalexin 500 mg capsule completed cephalexin 500 MG Oral Capsule [facility] ([facility]) lamotrigine 100 MG Oral Tablet lamotrigi ne 100 mg tablet TAKE ONE TABLET BY MOUTH ONCE DAILY lamotrigine 100 mg tablet TAKE ONE TABLET BY MOUTH ONC E DAILY completed lamotrigine 10 0 MG Oral Tablet [facility] ([facility]) Mirtazapine 15 MG Oral Tablet mirtazapine 15 mg tablet derrick zapine 15 mg tablet completed mirtazapine 15 MG Oral Tablet [facility] ([facility]) Azithromycin 250 MG Oral Tablet azithromycin 250 mg ta blet azithromycin 250 mg tablet completed azithromycin 25 0 MG Oral Tablet [facility] ([facility]) Famotidine 20 MG Oral Tablet famotidine 20 mg tablet famotidine 20 mg tablet completed famotidine 20 MG Oral Tablet [facility] ([facility]) Docusate Sodium 100 MG Oral Capsule [DOK] DOK 100 mg capsule DOK 100 mg capsule completed docusate sodiu m 100 MG Oral Capsule [DOK] [facility] ([facility]) Mirtazapine 15 MG Oral Tablet mirtazapine 15 mg tablet derrick zapine 15 mg tablet completed mirtazapine 15 MG Oral Tablet [facility] ([facility]) OneTouch Verio Flex Meter [id number] compl eted OneTouch Verio Flex Meter [facility] er) cefdinir 300 MG Oral Capsule cefdinir 300 mg capsule cefdinir 30 0 mg capsule completed cefdinir 300 M G Oral Capsule [facility] ([facility]) Mirtazapine 45 MG Oral Tablet mirtazapine 45 mg tablet derrick zapine 45 mg tablet completed mirtazapine 45 MG Oral Tablet [facility]) Triamcinolone Acetonide 1 MG/ML Topical Cream triamcinolone acetonide 0.1 % topical cream triamcinolone acetonide 0.1 % topical cream completed triamcinolone acetonide 1 MG/ML Topical Cream [facility] ([facility]) Azithromycin 250 MG Oral Tablet azithromycin 250 mg ta blet azithromycin 250 mg tablet completed azithromycin 25 0 MG Oral Tablet [facility] ([facility]) Amitriptyline Hydrochloride 50 MG Oral Tablet amitript yline 50 mg tablet amitriptyline 50 mg tablet completed amitriptyline hydrochloride 50 MG Oral Tablet JEFF ([facility]) buspirone hydrochloride 15 MG Oral Table t buspirone 15 mg tablet TAKE ONE TABLET BY MOUTH THREE TIMES A DAY buspirone 15 mg tablet TAKE ONE TABLET B Y MOUTH THREE TIMES A DAY completed buspirone hydrochloride 15 MG Oral Tablet [facility] ([facility]) Propranolol Hydrochloride 20 MG Oral Tablet propranolo l 20 mg tablet propranolol 20 mg tablet completed propranolol hydrochloride 20 MG Oral Tablet [facility] ([facility]) 0.5 ML dulaglutide 1.5 MG/ML Auto-Inject or [Trulicity] Trulicity 0.75 mg/0.5 mL subcutaneous pen injector Trulicity 0.75 mg/0.5 mL subcutaneous pen injector completed 0.5 ML dulaglu tide 1.5 MG/ML Auto-Injector [Trulicity] [facility] ([facility]) Clonazepam 0.5 MG [...] completed clonazepam 0.5 MG Or al Tablet [facility] ([facility]) sennosides, NURSING HOME 8.6 MG Oral Tablet [Senna-Time] senna 8.6 mg tablet senna 8.6 mg tablet completed sennosi azam, NURSING HOME 8.6 MG Oral Tablet [Senna-Time] JEFF ([facility]) 0.5 ML dulaglutide 1.5 MG/ML Auto-Inject or [Trulicity] Trulicity 0.75 mg/0.5 mL subcutaneous pen injector Trulicity 0.75 mg/0.5 mL subcutaneous pen injector completed 0.5 ML dulaglu tide 1.5 MG/ML Auto-Injector [Trulicity] [facility] ([facility]) ziprasidone 60 MG Oral Capsule ziprasidone 60 mg capsu le ziprasidone 60 mg capsule completed ziprasidone 60 MG Oral Capsule [facility] ([facility]) Mirtazapine 45 MG Oral Tablet mirtazapine 45 mg tablet derrick zapine 45 mg tablet completed mirtazapine 45 MG Oral Tablet [facility] ([facility]) benzonatate 200 MG Oral Capsule benzonatate 200 mg cap kenya benzonatate 200 mg capsule completed benzonatate 20 0 MG Oral Capsule [facility]) Triamcinolone Acetonide 1 MG/ML Topical Cream triamcinolone acetonide 0.1 % topical cream triamcinolone acetonide 0.1 % topical cream completed triamcinolone acetonide 1 MG/ML Topical Cream [facility]) Ketoconazole 20 MG/ML Medicated Shampoo ketoconazole 2 % shampoo ketoconazole 2 % shampoo completed ketoconazole 20 MG/ML Medicated Shampoo [facility] ([facility]) ziprasidone 60 MG Oral Capsule ziprasidone 60 mg capsu le ziprasidone 60 mg capsule completed ziprasidone 60 MG Oral Capsule [facility]) sennosides, NURSING HOME 8.6 MG Oral Tablet [Senna-Time] senna 8.6 mg tablet senna 8.6 mg tablet completed sennosi azam, NURSING HOME 8.6 MG Oral Tablet [Senna-Time] [facility] er) buspirone hydrochloride 7.5 MG Oral Tablet buspirone 7 .5 mg tablet buspirone 7.5 mg tablet completed buspirone h ydrochloride 7.5 MG Oral Tablet [facility]) benztropine mesylate 0.5 MG Oral Tablet benztropine 0. 5 mg tablet benztropine 0.5 mg tablet completed benztrop ine mesylate 0.5 MG Oral Tablet [facility]) Prazosin 1 MG Oral Capsule prazosin 1 mg capsule prazosin 1 mg capsule completed prazosin 1 MG Oral Capsul e [facility]) BD Ultra-Fine Short Pen Needle 31 gauge x 516" USE DIRECTED ONCE DAILY [id number] completed BD Ultr a-Fine Short Pen Needle 31 gauge x 16" [facility] ([facility]) Ketoconazole 20 MG/ML Medicated Shampoo ketoconazole 2 % shampoo ketoconazole 2 % shampoo completed ketoconazole 20 MG/ML Medicated Shampoo [facility] ([facility]) Mirtazapine 45 MG Oral Tablet mirtazapine 45 mg tablet derrick zapine 45 mg tablet completed mirtazapine 45 MG Oral Tablet [facility] ([facility]) Azithromycin 250 MG Oral Tablet azithromycin 250 mg ta blet azithromycin 250 mg tablet completed azithromycin 25 0 MG Oral Tablet [facility] ([facility]) lamotrigine 25 MG Oral Tablet lamotrigine 25 mg tablet lamot rigine 25 mg tablet completed lamotrigine 25 MG Oral Tablet [facility] ([facility]) Isopropyl Alcohol 0.7 ML/ML Medicated Pad Alcohol Prep Pads Alco hol Prep Pads completed isopropyl alco hol 0.7 ML/ML Medicated Pad [facility] ([facility]) Ergocalciferol 37457 UNT Oral Capsule Vi tamin D2 1,250 mcg (50,000 unit) capsule Vitamin D2 1,250 mcg (50,000 unit) capsule completed ergocalciferol 1.25 MG Oral Capsule [facility] ([facility]) buspirone hydrochloride 7.5 MG Oral Tablet buspirone 7 .5 mg tablet buspirone 7.5 mg tablet completed buspirone h ydrochloride 7.5 MG Oral Tablet [facility] ([facility]) Propranolol Hydrochloride 20 MG Oral Tablet propranolo l 20 mg tablet propranolol 20 mg tablet completed propranolol hydrochloride 20 MG Oral Tablet [facility] ([facility]) cefdinir 300 MG Oral Capsule cefdinir 300 mg capsule cefdinir 30 0 mg capsule completed cefdinir 300 M G Oral Capsule [facility] ([facility]) buspirone hydrochloride 7.5 MG Oral Tablet buspirone 7 .5 mg tablet buspirone 7.5 mg tablet completed buspirone h ydrochloride 7.5 MG Oral Tablet [facility] ([facility]) Mirtazapine 15 MG Oral Tablet mirtazapine 15 mg tablet derrick zapine 15 mg tablet completed mirtazapine 15 MG Oral Tablet [facility] ([facility]) Clonazepam 0.5 MG Disintegrating Oral Ta blet clonazepam 0.5 mg disintegrating tablet clonazepam 0.5 mg disintegrating tablet completed clonazepam 0.5 MG Disintegrating Oral Tablet [facility] ([facility]) Clonidine Hydrochloride 0.2 MG Oral Tablet clonidine H Cl 0.2 mg tablet clonidine HCl 0.2 mg tablet completed clonidine hydrochloride 0.2 MG Oral Tablet [facility] ([facility]) Azithromycin 250 MG Oral Tablet azithromycin 250 mg ta blet azithromycin 250 mg tablet completed azithromycin 25 0 MG Oral Tablet [facility] ([facility]) Docusate Sodium 100 MG Oral Capsule [DOK] DOK 100 mg capsule DOK 100 mg capsule completed docusate sodiu m 100 MG Oral Capsule [DOK] [facility]) benzonatate 200 MG Oral Capsule benzonatate 200 mg cap kenya benzonatate 200 mg capsule completed benzonatate 20 0 MG Oral Capsule [facility]) 0.5 ML dulaglutide 1.5 MG/ML Auto-Inject or [Trulicity] Trulicity 0.75 mg/0.5 mL subcutaneous pen injector Trulicity 0.75 mg/0.5 mL subcutaneous pen injector completed 0.5 ML dulaglu tide 1.5 MG/ML Auto-Injector [Trulicity] [facility] ([facility]) ziprasidone 60 MG Oral Capsule ziprasidone 60 mg capsu le ziprasidone 60 mg capsule completed ziprasidone 60 MG Oral Capsule [facility] ([facility]) Amitriptyline Hydrochloride 50 MG Oral Tablet amitript yline 50 mg tablet amitriptyline 50 mg tablet completed amitriptyline hydrochloride 50 MG Oral Tablet [facility] ([facility]) benztropine mesylate 0.5 MG Oral Tablet benztropine 0. 5 mg tablet benztropine 0.5 mg tablet completed benztrop ine mesylate 0.5 MG Oral Tablet [facility] ([facility]) benzonatate 200 MG Oral Capsule benzonatate 200 mg cap kenya benzonatate 200 mg capsule completed benzonatate 20 0 MG Oral Capsule [facility]) sennosides 8.6 mg-docusate sodium 50 mg capsule Take 2 capsules by oral route at bedtime. [id number] 2 capsule(s) completed docusate sodium 50 MG / sennosides, NURSING HOME 8.6 MG Oral Capsule JEFF ([facility]) buspirone hydrochloride 7.5 MG Oral Tablet buspirone 7 .5 mg tablet buspirone 7.5 mg tablet completed buspirone h ydrochloride 7.5 MG Oral Tablet JEFF ([facility]) Clonidine Hydrochloride 0.2 MG Oral Tablet clonidine H Cl 0.2 mg tablet clonidine HCl 0.2 mg tablet completed clonidine hydrochloride 0.2 MG Oral Tablet JEFF ([facility]) Azithromycin 250 MG Oral Tablet azithromycin 250 mg ta blet azithromycin 250 mg tablet completed azithromycin 25 0 MG Oral Tablet [facility] ([facility]) sennosides 8.6 mg-docusate sodium 50 mg capsule Take 2 capsules by oral route at bedtime. [id number] 2 capsule(s) completed docusate sodium 50 MG / sennosides, NURSING HOME 8.6 MG Oral Capsule JEFF ([facility]) buspirone hydrochloride 10 MG Oral Tablet buspirone 10 mg tablet buspirone 10 mg tablet completed buspirone hydr ochloride 10 MG Oral Tablet JEFF ([facility]) Propranolol Hydrochloride 20 MG Oral Tablet propranolo l 20 mg tablet propranolol 20 mg tablet completed propranolol hydrochloride 20 MG Oral Tablet JEFF ([facility]) Amitriptyline Hydrochloride 50 MG Oral Tablet amitript yline 50 mg tablet amitriptyline 50 mg tablet completed amitriptyline hydrochloride 50 MG Oral Tablet JEFF ([facility]) cefdinir 300 MG Oral Capsule cefdinir 300 mg capsule cefdinir 30 0 mg capsule completed cefdinir 300 M G Oral Capsule JEFF ([facility]) benzonatate 200 MG Oral Capsule benzonatate 200 mg cap kenya benzonatate 200 mg capsule completed benzonatate 20 0 MG Oral Capsule [facility] ([facility]) Mirtazapine 15 MG [...] completed benzonatate 20 0 MG Oral Capsule [facility] ([facility]) sennosides 8.6 mg-docusate sodium 50 mg capsule Take 2 capsules by oral route at bedtime. [id number] 2 capsule(s) completed docusate sodium 50 MG / sennosides, NURSING HOME 8.6 MG Oral Capsule [facility] ([facility]) Steglatro 5 mg tablet [id number] completed ertugliflozin 5 MG Oral Tablet [Steglatro] [facility] ([facility]) Simvastatin 10 MG Oral Tablet simvastati n 10 mg tablet TAKE ONE TABLET BY MOUTH EVERY DAY simvastatin 10 mg tablet TAKE ONE TABLET BY MOUTH EVERY DAY completed simvastatin 10 MG Oral Table t [facility] ([facility]) benztropine mesylate 0.5 MG Oral Tablet benztropine 0. 5 mg tablet benztropine 0.5 mg tablet completed benztrop ine mesylate 0.5 MG Oral Tablet [facility] ([facility]) Docusate Sodium 100 MG Oral Capsule [DOK] DOK 100 mg capsule DOK 100 mg capsule completed docusate sodiu m 100 MG Oral Capsule [DOK] [facility] ([facility]) 0.5 ML dulaglutide 1.5 MG/ML Auto-Inject or [Trulicity] Trulicity 0.75 mg/0.5 mL subcutaneous pen injector Trulicity 0.75 mg/0.5 mL subcutaneous pen injector completed 0.5 ML dulaglu tide 1.5 MG/ML Auto-Injector [Trulicity] [facility] ([facility]) Docusate Sodium 50 MG / sennosides, NURSING HOME 8.6 MG Oral Tablet sennosides 8.6 mg- docusate sodium 50 mg tablet Take 2 tablets by oral route at bedtime. sennosides 8.6 mg-docusate sodium 50 mg tablet Take 2 tablets by oral route at bedtime. 2 completed docusate sodiu m 50 MG / sennosides, NURSING HOME 8.6 MG Oral Tablet [facility] ([facility]) Amitriptyline Hydrochloride 50 MG Oral Tablet amitript yline 50 mg tablet amitriptyline 50 mg tablet completed amitriptyline hydrochloride 50 MG Oral Tablet JEFF ([facility]) sennosides 8.6 mg-docusate sodium 50 mg capsule Take 2 capsules by oral route at bedtime. [id number] 2 capsule(s) completed docusate sodium 50 MG / sennosides, NURSING HOME 8.6 MG Oral Capsule JEFF ([facility]) Clindamycin 150 MG Oral Capsule [...] tablet completed famotidine 20 MG Oral Tablet [facility] ([facility]) Clindamycin 150 MG Oral Capsule clindamycin HCl 150 mg capsule clindamycin HCl 150 mg capsule completed clindam ycin 150 MG Oral Capsule JEFF ([facility]) Triamcinolone Acetonide 1 MG/ML Topical Cream triamcinolone acetonide 0.1 % topical cream triamcinolone acetonide 0.1 % topical cream completed triamcinolone acetonide 1 MG/ML Topical Cream [facility] ([facility]) Trazodone Hydrochloride 50 MG Oral Table t trazodone 50 mg tablet TAKE ONE TABLET BY MOUTH EVERY DAY AT BEDTIME trazodone 50 mg tablet TAKE ONE TABLET B Y MOUTH EVERY DAY AT BEDTIME completed trazodone hydrochloride 50 MG Oral Tablet JEFF ([facility]) Propranolol Hydrochloride 20 MG Oral Tablet propranolo l 20 mg tablet propranolol 20 mg tablet completed propranolol hydrochloride 20 MG Oral Tablet JEFF ([facility]) sennosides 8.6 mg-docusate sodium 50 mg capsule Take 2 capsules by oral route at bedtime. [id number] 2 capsule(s) completed docusate sodium 50 MG / sennosides, NURSING HOME 8.6 MG Oral Capsule JEFF ([facility]) Clonazepam 1 MG Oral Tablet clonazepam 1 mg tablet clonazepam 1 mg ta blet completed clonazepam 1 MG Oral Tablet JEFF ([facility]) Triamcinolone Acetonide 1 MG/ML Topical Cream triamcinolone acetonide 0.1 % topical cream triamcinolone acetonide 0.1 % topical cream completed triamcinolone acetonide 1 MG/ML Topical Cream [facility] ([facility]) buspirone hydrochloride 15 MG Oral Table t buspirone 15 mg tablet TAKE ONE TABLET BY MOUTH THREE TIMES A DAY buspirone 15 mg tablet TAKE ONE TABLET B Y MOUTH THREE TIMES A DAY completed buspirone hydrochloride 15 MG Oral Tablet JEFF ([facility]) buspirone hydrochloride 7.5 MG Oral Tablet buspirone 7 .5 mg tablet buspirone 7.5 mg tablet completed buspirone h ydrochloride 7.5 MG Oral Tablet JEFF ([facility]) Ergocalciferol 05049 UNT Oral Capsule Vi tamin D2 1,250 mcg (50,000 unit) capsule Vitamin D2 1,250 mcg (50,000 unit) capsule completed ergocalciferol 1.25 MG Oral Capsule JEFF ([facility]) lamotrigine 25 MG Oral Tablet lamotrigine 25 mg tablet lamot rigine 25 mg tablet completed lamotrigine 25 MG Oral Tablet JFEF ([facility]) sennosides 8.6 mg-docusate sodium 50 mg capsule Take 2 capsules by oral route at bedtime. [id number] 2 capsule(s) completed docusate sodium 50 MG / sennosides, NURSING HOME 8.6 MG Oral Capsule JEFF ([facility]) Ergocalciferol 48634 UNT Oral Capsule Vi tamin D2 1,250 mcg (50,000 unit) capsule Vitamin D2 1,250 mcg (50,000 unit) capsule completed ergocalciferol 1.25 MG Oral Capsule JEFF ([facility]) Amitriptyline Hydrochloride 50 MG Oral Tablet amitript yline 50 mg tablet amitriptyline 50 mg tablet completed amitriptyline hydrochloride 50 MG Oral Tablet JEFF ([facility]) Steglatro 5 mg tablet [id number] completed ertugliflozin 5 MG Oral Tablet [Steglatro] JEFF ([facility]) Amitriptyline Hydrochloride 50 MG Oral Tablet amitript yline 50 mg tablet amitriptyline 50 mg tablet completed amitriptyline hydrochloride 50 MG Oral Tablet JEFF ([facility]) Clindamycin 150 MG Oral Capsule clindamycin HCl 150 mg capsule clindamycin HCl 150 mg capsule completed clindam ycin 150 MG Oral Capsule TRINIDAD ([facility]) sennosides, NURSING HOME 8.6 MG Oral Tablet [Senna-Time] senna 8.6 mg tablet senna 8.6 mg tablet completed sennosi azam, NURSING HOME 8.6 MG Oral Tablet [Senna-Time] JEFF ([facility]) sennosides 8.6 mg-docusate sodium 50 mg capsule Take 2 capsules by oral route at bedtime. [id number] 2 capsule(s) completed docusate sodium 50 MG / sennosides, NURSING HOME 8.6 MG Oral Capsule TRINIDAD ([facility]) sennosides 8.6 mg-docusate sodium 50 mg capsule Take 2 capsules by oral route at bedtime. [id number] 2 capsule(s) completed docusate sodium 50 MG / sennosides, NURSING HOME 8.6 MG Oral Capsule TRINIDAD ([facility]) lamotrigine 100 MG Oral Tablet [...] propranolol hydrochloride 20 MG Oral Tablet JEFF ([facility]) sennosides, NURSING HOME 8.6 MG Oral Tablet [Senna-Time] senna 8.6 mg tablet senna 8.6 mg tablet completed sennosi azam, NURSING HOME 8.6 MG Oral Tablet [Senna-Time] JEFF ([facility]) Isopropyl Alcohol 0.7 ML/ML Medicated Pad Alcohol Prep Pads Alco hol Prep Pads completed isopropyl alco hol 0.7 ML/ML Medicated Pad JEFF ([facility]) ziprasidone 60 MG Oral Capsule ziprasidone 60 mg capsu le ziprasidone 60 mg capsule completed ziprasidone 60 MG Oral Capsule TRINIDAD ([facility]) Ketoconazole 20 MG/ML Medicated Shampoo ketoconazole 2 % shampoo ketoconazole 2 % shampoo completed ketoconazole 20 MG/ML Medicated Shampoo JEFF ([facility]) ziprasidone 60 MG Oral Capsule ziprasidone 60 mg capsu le ziprasidone 60 mg capsule completed ziprasidone 60 MG Oral Capsule TRINIDAD ([facility]) Mirtazapine 15 MG Oral Tablet mirtazapine 15 mg tablet derrick zapine 15 mg tablet completed mirtazapine 15 MG Oral Tablet TR[facility]IDAD ([facility]) benztropine mesylate 0.5 MG Oral Tablet benztropine 0. 5 mg tablet benztropine 0.5 mg tablet completed benztrop ine mesylate 0.5 MG Oral Tablet TRINIDAD ([facility]) OneTouch Delica Plus Lancet 33 gauge [id number] completed OneTouch Delica Plus Lancet 33 gauge TRINIDAD ([facility]) Triamcinolone Acetonide 1 MG/ML Topical Cream triamcinolone acetonide 0.1 % topical cream triamcinolone acetonide 0.1 % topical cream completed triamcinolone acetonide 1 MG/ML Topical Cream TRINIDAD ([facility]) 0.5 ML dulaglutide 1.5 MG/ML Auto-Inject or [Trulicity] Trulicity 0.75 mg/0.5 mL subcutaneous pen injector Trulicity 0.75 mg/0.5 mL subcutaneous pen injector completed 0.5 ML dulaglu tide 1.5 MG/ML Auto-Injector [Trulicity] TRINIDAD ([facility]) Triamcinolone Acetonide 1 MG/ML Topical Cream triamcinolone acetonide 0.1 % topical cream triamcinolone acetonide 0.1 % topical cream completed triamcinolone acetonide 1 MG/ML Topical Cream JEFF ([facility]) buspirone hydrochloride 7.5 MG Oral Tablet buspirone 7 .5 mg tablet buspirone 7.5 mg tablet completed buspirone h ydrochloride 7.5 MG Oral Tablet TRINIDAD ([facility]) lamotrigine 100 MG Oral Tablet lamotrigi ne 100 mg tablet TAKE ONE TABLET BY MOUTH ONCE DAILY lamotrigine 100 mg tablet TAKE ONE TABLET BY MOUTH ONC E DAILY completed lamotrigine 10 0 MG Oral Tablet TRINIDAD ([facility]) buspirone hydrochloride 7.5 MG Oral Tablet buspirone 7 .5 mg tablet buspirone 7.5 mg tablet completed buspirone h ydrochloride 7.5 MG Oral Tablet TRINIDAD ([facility]) Amitriptyline Hydrochloride 75 MG Oral Tablet amitript yline 75 mg tablet amitriptyline 75 mg tablet completed amitriptyline hydrochloride 75 MG Oral Tablet TRINIDAD ([facility]) Ketoconazole 20 MG/ML Medicated Shampoo ketoconazole 2 % shampoo ketoconazole 2 % shampoo completed ketoconazole 20 MG/ML Medicated Shampoo TRINIDAD ([facility]) benztropine mesylate 0.5 MG Oral Tablet benztropine 0. 5 mg tablet benztropine 0.5 mg tablet completed benztrop ine mesylate 0.5 MG Oral Tablet TRINIDAD ([facility]) Trazodone Hydrochloride 50 MG Oral Table t trazodone 50 mg tablet TAKE ONE TABLET BY MOUTH EVERY DAY AT BEDTIME trazodone 50 mg tablet TAKE ONE TABLET B Y MOUTH EVERY DAY AT BEDTIME completed trazodone hydrochloride 50 MG Oral Tablet TRINIDAD ([facility]) buspirone hydrochloride 10 MG Oral Tablet buspirone 10 mg tablet buspirone 10 mg tablet completed buspirone hydr ochloride 10 MG Oral Tablet TRINIDAD ([facility]) Ketoconazole 20 MG/ML Medicated Shampoo ketoconazole 2 % shampoo ketoconazole 2 % shampoo completed ketoconazole 20 MG/ML Medicated Shampoo TRINIDAD ([facility]) Cephalexin 500 MG Oral Capsule cephalexin 500 mg capsu le cephalexin 500 mg capsule completed cephalexin 500 MG Oral Capsule JEFF ([facility]) buspirone hydrochloride 7.5 MG Oral Tablet buspirone 7 .5 mg tablet buspirone 7.5 mg tablet completed buspirone h ydrochloride 7.5 MG Oral Tablet TRINIDAD ([facility]) ziprasidone 60 MG Oral Capsule ziprasidone 60 mg capsu le ziprasidone 60 mg capsule completed ziprasidone 60 MG Oral Capsule TRINIDAD ([facility]) Amitriptyline Hydrochloride 75 MG Oral Tablet amitript yline 75 mg tablet amitriptyline 75 mg tablet completed amitriptyline hydrochloride 75 MG Oral Tablet TR[facility]IDAD ([facility]) Clindamycin 150 MG Oral Capsule clindamycin HCl 150 mg capsule clindamycin HCl 150 mg capsule completed clindam ycin 150 MG Oral Capsule TR[facility]IDAD ([facility]) cefdinir 300 MG Oral Capsule cefdinir 300 mg capsule cefdinir 30 0 mg capsule completed cefdinir 300 M G Oral Capsule TRINIDAD ([facility]) benzonatate 200 MG Oral Capsule benzonatate 200 mg cap kenya benzonatate 200 mg capsule completed benzonatate 20 0 MG Oral Capsule JEFF ([facility]) cefdinir 300 MG Oral Capsule cefdinir 300 mg capsule cefdinir 30 0 mg capsule completed cefdinir 300 M G Oral Capsule TRINIDAD ([facility]) Isopropyl Alcohol 0.7 ML/ML Medicated Pad Alcohol Prep Pads Alco hol Prep Pads completed isopropyl alco hol 0.7 ML/ML Medicated Pad TRINIDAD ([facility]) lamotrigine 100 MG Oral Tablet lamotrigi ne 100 mg tablet TAKE ONE TABLET BY MOUTH ONCE DAILY lamotrigine 100 mg tablet TAKE ONE TABLET BY MOUTH ONC E DAILY completed lamotrigine 10 0 MG Oral Tablet TR[facility]IDAD ([facility]) Triamcinolone Acetonide 1 MG/ML Topical Cream triamcinolone acetonide 0.1 % topical cream triamcinolone acetonide 0.1 % topical cream completed triamcinolone acetonide 1 MG/ML Topical Cream TRINIDAD ([facility]) Propranolol Hydrochloride 20 MG Oral Tablet propranolo l 20 mg tablet propranolol 20 mg tablet completed propranolol hydrochloride 20 MG Oral Tablet JEFF ([facility]) Ergocalciferol 40027 UNT Oral Capsule Vi tamin D2 1,250 mcg (50,000 unit) capsule Vitamin D2 1,250 mcg (50,000 unit) capsule completed ergocalciferol 1.25 MG Oral Capsule JEFF ([facility]) sennosides 8.6 mg-docusate sodium 50 mg capsule Take 2 capsules by oral route at bedtime. [id number] 2 capsule(s) completed docusate sodium 50 MG / sennosides, NURSING HOME 8.6 MG Oral Capsule JEFF ([facility]) Ketoconazole 20 MG/ML Medicated Shampoo [...] propranolol hydrochloride 20 MG Oral Tablet JEFF ([facility]) Prazosin 1 MG Oral Capsule prazosin 1 mg capsule prazosin 1 mg capsule completed prazosin 1 MG Oral Capsul e JEFF ([facility]) Amitriptyline Hydrochloride 50 MG Oral Tablet amitript yline 50 mg tablet amitriptyline 50 mg tablet completed amitriptyline hydrochloride 50 MG Oral Tablet JEFF ([facility]) Steglatro 5 mg tablet [id number] completed ertugliflozin 5 MG Oral Tablet [Steglatro] JEFF ([facility]) Steglatro 5 mg tablet [id number] completed ertugliflozin 5 MG Oral Tablet [Steglatro] JEFF ([facility]) Mirtazapine 15 MG Oral Tablet [...] amitriptyline hydrochloride 75 MG Oral Tablet JEFF ([facility]) Clonazepam 1 MG Oral Tablet clonazepam 1 mg tablet clonazepam 1 mg ta blet completed clonazepam 1 MG Oral Tablet TRINIDAD ([facility]) benztropine mesylate 0.5 MG Oral Tablet benztropine 0. 5 mg tablet benztropine 0.5 mg tablet completed benztrop ine mesylate 0.5 MG Oral Tablet TRINIDAD ([facility]) Mirtazapine 45 MG Oral Tablet mirtazapine 45 mg tablet derrick zapine 45 mg tablet completed mirtazapine 45 MG Oral Tablet TR[facility]IDAD ([facility]) OneTouch Delica Plus Lancet 33 gauge [id number] completed OneTouch Delica Plus Lancet 33 gauge TRINIDAD ([facility]) Amitriptyline Hydrochloride 75 MG Oral Tablet amitript yline 75 mg tablet amitriptyline 75 mg tablet completed amitriptyline hydrochloride 75 MG Oral Tablet TRINIDAD ([facility]) Amitriptyline Hydrochloride 50 MG Oral Tablet amitript yline 50 mg tablet amitriptyline 50 mg tablet completed amitriptyline hydrochloride 50 MG Oral Tablet TRINIDAD ([facility]) 0.5 ML dulaglutide 1.5 MG/ML Auto-Inject or [Trulicity] Trulicity 0.75 mg/0.5 mL subcutaneous pen injector Trulicity 0.75 mg/0.5 mL subcutaneous pen injector completed 0.5 ML dulaglu tide 1.5 MG/ML Auto-Injector [Trulicity] [facility]) Ketoconazole 20 MG/ML Medicated Shampoo ketoconazole 2 % shampoo ketoconazole 2 % shampoo completed ketoconazole 20 MG/ML Medicated Shampoo TRINIDAD ([facility]) 0.5 ML dulaglutide 1.5 MG/ML Auto-Inject or [Trulicity] Trulicity 0.75 mg/0.5 mL subcutaneous pen injector Trulicity 0.75 mg/0.5 mL subcutaneous pen injector completed 0.5 ML dulaglu tide 1.5 MG/ML Auto-Injector [Trulicity] TRINIDAD ([facility]) Simvastatin 10 MG Oral Tablet simvastati n 10 mg tablet TAKE ONE TABLET BY MOUTH EVERY DAY simvastatin 10 mg tablet TAKE ONE TABLET BY MOUTH EVERY DAY completed simvastatin 10 MG Oral Table t JEFF ([facility]) sennosides, NURSING HOME 8.6 MG Oral Tablet [Senna-Time] senna 8.6 mg tablet senna 8.6 mg tablet completed sennosi azam, NURSING HOME 8.6 MG Oral Tablet [Senna-Time] JEFF ([facility]) ziprasidone 60 MG Oral Capsule ziprasidone 60 mg capsu le ziprasidone 60 mg capsule completed ziprasidone 60 MG Oral Capsule JEFF ([facility]) Docusate Sodium 50 MG / sennosides, NURSING HOME 8.6 MG Oral Tablet sennosides 8.6 mg- docusate sodium 50 mg tablet Take 2 tablets by oral route at bedtime. sennosides 8.6 mg-docusate sodium 50 mg tablet Take 2 tablets by oral route at bedtime. 2 completed docusate sodiu m 50 MG / sennosides, NURSING HOME 8.6 MG Oral Tablet JEFF ([facility]) benztropine mesylate 0.5 MG Oral Tablet benztropine 0. 5 mg tablet benztropine 0.5 mg tablet completed benztrop ine mesylate 0.5 MG Oral Tablet JEFF ([facility]) Clonidine Hydrochloride 0.2 MG Oral Tablet clonidine H Cl 0.2 mg tablet clonidine HCl 0.2 mg tablet completed clonidine hydrochloride 0.2 MG Oral Tablet JEFF ([facility]) Amitriptyline Hydrochloride 50 MG Oral Tablet amitript yline 50 mg tablet amitriptyline 50 mg tablet completed amitriptyline hydrochloride 50 MG Oral Tablet JEFF ([facility]) Ergocalciferol 02291 UNT Oral Capsule Vi tamin D2 1,250 mcg (50,000 unit) capsule Vitamin D2 1,250 mcg (50,000 unit) capsule completed ergocalciferol 1.25 MG Oral Capsule JEFF ([facility]) Azithromycin 250 MG Oral Tablet azithromycin 250 mg ta blet azithromycin 250 mg tablet completed azithromycin 25 0 MG Oral Tablet JEFF ([facility]) Clonidine Hydrochloride 0.2 MG Oral Tablet clonidine H Cl 0.2 mg tablet clonidine HCl 0.2 mg tablet completed clonidine hydrochloride 0.2 MG Oral Tablet JEFF ([facility]) OneTouch Verio test strips USE UP TO TWO TIMES A DAY DIRECTED [id number] completed OneTouch Verio test strip s TRINIDAD ([facility]) buspirone hydrochloride 10 MG Oral Tablet buspirone 10 mg tablet buspirone 10 mg tablet completed buspirone hydr ochloride 10 MG Oral Tablet TRINIDAD ([facility]) Azithromycin 250 MG Oral Tablet azithromycin 250 mg ta blet azithromycin 250 mg tablet completed azithromycin 25 0 MG Oral Tablet TRINIDAD ([facility]) Triamcinolone Acetonide 1 MG/ML Topical Cream triamcinolone acetonide 0.1 % topical cream triamcinolone acetonide 0.1 % topical cream completed triamcinolone acetonide 1 MG/ML Topical Cream TRINIDAD ([facility]) lamotrigine 25 MG Oral Tablet lamotrigine 25 mg tablet lamot rigine 25 mg tablet completed lamotrigine 25 MG Oral Tablet TRINIDAD ([facility]) Mirtazapine 45 MG Oral Tablet mirtazapine 45 mg tablet derrick zapine 45 mg tablet completed mirtazapine 45 MG Oral Tablet TRINIDAD ([facility]) buspirone hydrochloride 10 MG Oral Tablet buspirone 10 mg tablet buspirone 10 mg tablet completed buspirone hydr ochloride 10 MG Oral Tablet TRINIDAD ([facility]) Mirtazapine 45 MG Oral Tablet mirtazapine 45 mg tablet derrick zapine 45 mg tablet completed mirtazapine 45 MG Oral Tablet TRINIDAD ([facility]) sennosides 8.6 mg-docusate sodium 50 mg capsule Take 2 capsules by oral route at bedtime. [id number] 2 capsule(s) completed docusate sodium 50 MG / sennosides, NURSING HOME 8.6 MG Oral Capsule TRINIDAD ([facility]) Ketoconazole 20 MG/ML Medicated Shampoo ketoconazole 2 % shampoo ketoconazole 2 % shampoo completed ketoconazole 20 MG/ML Medicated Shampoo TRINIDAD ([facility]) Azithromycin 250 MG Oral Tablet azithromycin 250 mg ta blet azithromycin 250 mg tablet completed azithromycin 25 0 MG Oral Tablet TRINIDAD ([facility]) Famotidine 20 MG [...] amitriptyline hydrochloride 75 MG Oral Tablet JEFF ([facility]) Mirtazapine 45 MG Oral Tablet mirtazapine 45 mg tablet derrick zapine 45 mg tablet completed mirtazapine 45 MG Oral Tablet TRINIDAD ([facility]) Propranolol Hydrochloride 20 MG Oral Tablet propranolo l 20 mg tablet propranolol 20 mg tablet completed propranolol hydrochloride 20 MG Oral Tablet TRINIDAD ([facility]) buspirone hydrochloride 15 MG Oral Table t buspirone 15 mg tablet TAKE ONE TABLET BY MOUTH THREE TIMES A DAY buspirone 15 mg tablet TAKE ONE TABLET B Y MOUTH THREE TIMES A DAY completed buspirone hydrochloride 15 MG Oral Tablet TRINIDAD ([facility]) Propranolol Hydrochloride 20 MG Oral Tablet propranolo l 20 mg tablet propranolol 20 mg tablet completed propranolol hydrochloride 20 MG Oral Tablet TRINIDAD ([facility]) Famotidine 20 MG Oral Tablet famotidine 20 mg tablet famotidine 20 mg tablet completed famotidine 20 MG Oral Tablet TRINIDAD ([facility]) benztropine mesylate 0.5 MG Oral Tablet benztropine 0. 5 mg tablet benztropine 0.5 mg tablet completed benztrop ine mesylate 0.5 MG Oral Tablet JEFF ([facility]) ziprasidone 60 MG Oral Capsule ziprasidone 60 mg capsu le ziprasidone 60 mg capsule completed ziprasidone 60 MG Oral Capsule TRINIDAD ([facility]) Triamcinolone Acetonide 1 MG/ML Topical Cream triamcinolone acetonide 0.1 % topical cream triamcinolone acetonide 0.1 % topical cream completed triamcinolone acetonide 1 MG/ML Topical Cream TRINIDAD ([facility]) Famotidine 20 MG Oral Tablet famotidine 20 mg tablet famotidine 20 mg tablet completed famotidine 20 MG Oral Tablet TRINIDAD ([facility]) cefdinir 300 MG Oral Capsule cefdinir 300 mg capsule cefdinir 30 0 mg capsule completed cefdinir 300 M G Oral Capsule TRINIDAD ([facility]) OneTouch Delica Plus Lancet 33 gauge [id number] completed OneTouch Delica Plus Lancet 33 gauge TRINIDAD ([facility]) buspirone hydrochloride 10 MG Oral Tablet buspirone 10 mg tablet buspirone 10 mg tablet completed buspirone hydr ochloride 10 MG Oral Tablet TRINIDAD ([facility]) Amitriptyline Hydrochloride 50 MG Oral Tablet amitript yline 50 mg tablet amitriptyline 50 mg tablet completed amitriptyline hydrochloride 50 MG Oral Tablet TRINIDAD ([facility]) lamotrigine 25 MG Oral Tablet lamotrigine 25 mg tablet lamot rigine 25 mg tablet completed lamotrigine 25 MG Oral Tablet TRINIDAD ([facility]) Clonazepam 0.5 MG Disintegrating Oral Ta blet clonazepam 0.5 mg disintegrating tablet clonazepam 0.5 mg disintegrating tablet completed clonazepam 0.5 MG Disintegrating Oral Tablet TRINIDAD ([facility]) lamotrigine 100 MG Oral Tablet lamotrigi ne 100 mg tablet TAKE ONE TABLET BY MOUTH ONCE DAILY lamotrigine 100 mg tablet TAKE ONE TABLET BY MOUTH ONC E DAILY completed lamotrigine 10 0 MG Oral Tablet TRINIDAD ([facility]) Clonazepam 0.5 MG Oral Tablet clonazepam 0.5 mg tablet TAKE ONE TABLET BY MOUTH EVERY DAY MAXIMUM DAILY DOSE ONE TABLET clonazepam 0.5 mg tablet TAKE ONE TABLET BY MOUTH EVERY DAY MAXIMUM DAILY DOSE ONE TABLET completed clonazepam 0.5 MG Oral Tablet AT [facility]) Clonidine Hydrochloride 0.2 MG Oral Tablet clonidine H Cl 0.2 mg tablet clonidine HCl 0.2 mg tablet completed clonidine hydrochloride 0.2 MG Oral Tablet TRINIDAD ([facility]) Ergocalciferol 12929 UNT Oral Capsule Vi tamin D2 1,250 mcg (50,000 unit) capsule Vitamin D2 1,250 mcg (50,000 unit) capsule completed ergocalciferol 1.25 MG Oral Capsule TRINIDAD ([facility]) benztropine mesylate 0.5 MG Oral Tablet benztropine 0. 5 mg tablet benztropine 0.5 mg tablet completed benztrop ine mesylate 0.5 MG Oral Tablet JEFF ([facility]) Docusate Sodium 50 MG / sennosides, NURSING HOME 8.6 MG Oral Tablet sennosides 8.6 mg- docusate sodium 50 mg tablet Take 2 tablets by oral route at bedtime. sennosides 8.6 mg-docusate sodium 50 mg tablet Take 2 tablets by oral route at bedtime. 2 completed docusate sodiu m 50 MG / sennosides, NURSING HOME 8.6 MG Oral Tablet TRINIDAD ([facility]) OneTouch Delica Plus Lancet 33 gauge [id number] completed OneTouch Delica Plus Lancet 33 gauge TRINIDAD ([facility]) Prazosin 1 MG Oral Capsule prazosin 1 mg capsule prazosin 1 mg capsule completed prazosin 1 MG Oral Capsul e TRINIDAD ([facility]) Clindamycin 150 MG Oral Capsule clindamycin HCl 150 mg capsule clindamycin HCl 150 mg capsule completed clindam ycin 150 MG Oral Capsule TRINIDAD ([facility]) ziprasidone 60 MG Oral Capsule ziprasidone 60 mg capsu le ziprasidone 60 mg capsule completed ziprasidone 60 MG Oral Capsule TRINIDAD ([facility]) Docusate Sodium 100 MG Oral Capsule [DOK] DOK 100 mg capsule DOK 100 mg capsule completed docusate sodiu m 100 MG Oral Capsule [DOK] TRINIDAD ([facility]) Ergocalciferol [id number] UNT Oral Capsule Vi tamin D2 1,250 mcg (50,000 unit) capsule Vitamin D2 1,250 mcg (50,000 unit) capsule completed ergocalciferol 1.25 MG Oral Capsule TRINIDAD ([facility]) Triamcinolone Acetonide 1 MG/ML Topical Cream triamcinolone acetonide 0.1 % topical cream triamcinolone acetonide 0.1 % topical cream completed triamcinolone acetonide 1 MG/ML Topical Cream TRINIDAD ([facility]) Ketoconazole 20 MG/ML Medicated Shampoo ketoconazole 2 % shampoo ketoconazole 2 % shampoo completed ketoconazole 20 MG/ML Medicated Shampoo TRINIDAD ([facility]) Mirtazapine 15 MG Oral Tablet mirtazapine 15 mg tablet derrick zapine 15 mg tablet completed mirtazapine 15 MG Oral Tablet JEFF ([facility]) lamotrigine 25 MG Oral Tablet lamotrigine 25 mg tablet lamot rigine 25 mg tablet completed lamotrigine 25 MG Oral Tablet TRINIDAD ([facility]) Clindamycin 150 MG Oral Capsule clindamycin HCl 150 mg capsule clindamycin HCl 150 mg capsule completed clindam ycin 150 MG Oral Capsule TRINIDAD ([facility]) Amitriptyline Hydrochloride 75 MG Oral Tablet amitript yline 75 mg tablet amitriptyline 75 mg tablet completed amitriptyline hydrochloride 75 MG Oral Tablet TRINIDAD ([facility]) Ketoconazole 20 MG/ML Medicated Shampoo ketoconazole 2 % shampoo ketoconazole 2 % shampoo completed ketoconazole 20 MG/ML Medicated Shampoo TRINIDAD ([facility]) Clonazepam 1 MG Oral Tablet clonazepam 1 mg tablet clonazepam 1 mg ta blet completed clonazepam 1 MG Oral Tablet TRINIDAD ([facility]) Isopropyl Alcohol 0.7 ML/ML Medicated Pad Alcohol Prep Pads Alco hol Prep Pads completed isopropyl alco hol 0.7 ML/ML Medicated Pad TRINIDAD ([facility]) Clonazepam 1 MG Oral Tablet clonazepam 1 mg tablet clonazepam 1 mg ta blet completed clonazepam 1 MG Oral Tablet TRINIDAD ([facility]) Mirtazapine 15 MG Oral Tablet mirtazapine 15 mg tablet derrick zapine 15 mg tablet completed mirtazapine 15 MG Oral Tablet TRINIDAD ([facility]) Mirtazapine 15 MG Oral Tablet mirtazapine 15 mg tablet derrick zapine 15 mg tablet completed mirtazapine 15 MG Oral Tablet TRINIDAD ([facility]) Clonidine Hydrochloride 0.2 MG Oral Tablet clonidine H Cl 0.2 mg tablet clonidine HCl 0.2 mg tablet completed clonidine hydrochloride 0.2 MG Oral Tablet TRINIDAD ([facility]) Famotidine 20 MG Oral Tablet famotidine 20 mg tablet famotidine 20 mg tablet completed famotidine 20 MG Oral Tablet TRINIDAD ([facility]) buspirone hydrochloride 15 MG Oral Table t buspirone 15 mg tablet TAKE ONE TABLET BY MOUTH THREE TIMES A DAY buspirone 15 mg tablet TAKE ONE TABLET B Y MOUTH THREE TIMES A DAY completed buspirone hydrochloride 15 MG Oral Tablet JEFF ([facility]) Ergocalciferol 08151 UNT Oral Capsule Vi tamin D2 1,250 mcg (50,000 unit) capsule Vitamin D2 1,250 mcg (50,000 unit) capsule completed ergocalciferol 1.25 MG Oral Capsule JEFF ([facility]) OneTouch Verio test strips USE DIRECTED UP TO TWO TIMES A DAY [id number] completed OneTouch Verio test strip s TRINIDAD ([facility]) benztropine mesylate 0.5 MG Oral Tablet benztropine 0. 5 mg tablet benztropine 0.5 mg tablet completed benztrop ine mesylate 0.5 MG Oral Tablet TR[facility]IDAD ([facility]) sennosides 8.6 mg-docusate sodium 50 mg capsule Take 2 capsules by oral route at bedtime. [id number] 2 capsule(s) completed docusate sodium 50 MG / sennosides, NURSING HOME 8.6 MG Oral Capsule JEFF ([facility]) 0.5 ML dulaglutide 1.5 MG/ML Auto-Inject or [Trulicity] Trulicity 0.75 mg/0.5 mL subcutaneous pen injector Trulicity 0.75 mg/0.5 mL subcutaneous pen injector completed 0.5 ML dulaglu tide 1.5 MG/ML Auto-Injector [Trulicity] TRINIDAD ([facility]) Triamcinolone Acetonide 1 MG/ML Topical Cream triamcinolone acetonide 0.1 % topical cream triamcinolone acetonide 0.1 % topical cream completed triamcinolone acetonide 1 MG/ML Topical Cream TRINIDAD ([facility]) benztropine mesylate 0.5 MG Oral Tablet benztropine 0. 5 mg tablet benztropine 0.5 mg tablet completed benztrop ine mesylate 0.5 MG Oral Tablet JEFF ([facility]) benzonatate 200 MG Oral Capsule benzonatate 200 mg cap kenya benzonatate 200 mg capsule completed benzonatate 20 0 MG Oral Capsule TRINIDAD ([facility]) Propranolol Hydrochloride 20 MG Oral Tablet propranolo l 20 mg tablet propranolol 20 mg tablet completed propranolol hydrochloride 20 MG Oral Tablet JEFF ([facility]) OneTouch Verio test strips USE UP TO TWO TIMES A DAY DIRECTED [id number] completed OneTouch Verio test strip s [...] amitriptyline hydrochloride 50 MG Oral Tablet JEFF ([facility]) ziprasidone 60 MG Oral Capsule ziprasidone 60 mg capsu le ziprasidone 60 mg capsule completed ziprasidone 60 MG Oral Capsule TRINIDAD ([facility]) Clindamycin 150 MG [...] Tablet JEFF ([facility]) Ergocalciferol 13040 UNT Oral Capsule Vi tamin D2 1,250 mcg (50,000 unit) capsule Vitamin D2 1,250 mcg (50,000 unit) capsule completed ergocalciferol 1.25 MG Oral Capsule JEFF ([facility]) 0.5 ML dulaglutide 1.5 MG/ML Auto-Inject [...] amitriptyline hydrochloride 50 MG Oral Tablet JEFF ([facility]) Mirtazapine 15 MG Oral Tablet mirtazapine 15 mg tablet derrick zapine 15 mg tablet completed mirtazapine 15 MG Oral Tablet JEFF ([facility]) Clonidine Hydrochloride 0.2 MG Oral Tablet clonidine H Cl 0.2 mg tablet clonidine HCl 0.2 mg tablet completed clonidine hydrochloride 0.2 MG Oral Tablet JEFF ([facility]) Clonazepam 1 MG Oral Tablet clonazepam 1 mg tablet clonazepam 1 mg ta blet completed clonazepam 1 MG Oral Tablet JEFF ([facility]) sennosides 8.6 mg-docusate sodium 50 mg capsule Take 2 capsules by oral route at bedtime. [id number] 2 capsule(s) completed docusate sodium 50 MG / sennosides, NURSING HOME 8.6 MG Oral Capsule JEFF ([facility]) Azithromycin 250 MG Oral Tablet azithromycin 250 mg ta blet azithromycin 250 mg tablet completed azithromycin 25 0 MG Oral Tablet JEFF ([facility]) cefdinir 300 MG Oral Capsule cefdinir 300 mg capsule cefdinir 30 0 mg capsule completed cefdinir 300 M G Oral Capsule JEFF ([facility]) Docusate Sodium 50 MG / sennosides, NURSING HOME 8.6 MG Oral Tablet sennosides 8.6 mg- docusate sodium 50 mg tablet Take 2 tablets by oral route at bedtime. sennosides 8.6 mg-docusate sodium 50 mg tablet Take 2 tablets by oral route at bedtime. 2 completed docusate sodiu m 50 MG / sennosides, NURSING HOME 8.6 MG Oral Tablet JEFF ([facility]) Clonazepam 1 MG Oral Tablet [...] amitriptyline hydrochloride 75 MG Oral Tablet JEFF ([facility]) Docusate Sodium 50 MG / sennosides, NURSING HOME 8.6 MG Oral Tablet sennosides 8.6 mg- docusate sodium 50 mg tablet Take 2 tablets by oral route at bedtime. sennosides 8.6 mg-docusate sodium 50 mg tablet Take 2 tablets by oral route at bedtime. 2 completed docusate sodiu m 50 MG / sennosides, NURSING HOME 8.6 MG Oral Tablet JEFF ([facility]) benztropine mesylate 0.5 MG Oral Tablet benztropine 0. 5 mg tablet benztropine 0.5 mg tablet completed benztrop ine mesylate 0.5 MG Oral Tablet JEFF ([facility]) Steglatro 5 mg tablet [id number] completed ertugliflozin 5 MG Oral Tablet [Steglatro] JEFF ([facility]) buspirone hydrochloride 10 MG Oral Tablet buspirone 10 mg tablet buspirone 10 mg tablet completed buspirone hydr ochloride 10 MG Oral Tablet JEFF ([facility]) OneTouch Delica Plus Lancet 33 gauge [id number] completed OneTouch Delica Plus Lancet 33 gauge JEFF ([facility]) Prazosin 1 MG Oral Capsule prazosin 1 mg capsule prazosin 1 mg capsule completed prazosin 1 MG Oral Capsul e JEFF ([facility]) Clonazepam 0.5 MG Disintegrating Oral Ta blet clonazepam 0.5 mg disintegrating tablet clonazepam 0.5 mg disintegrating tablet completed clonazepam 0.5 MG Disintegrating Oral Tablet JEFF ([facility]) Docusate Sodium 50 MG / sennosides, NURSING HOME 8.6 MG Oral Tablet sennosides 8.6 mg- docusate sodium 50 mg tablet Take 2 tablets by oral route at bedtime. sennosides 8.6 mg-docusate sodium 50 mg tablet Take 2 tablets by oral route at bedtime. 2 completed docusate sodiu m 50 MG / sennosides, NURSING HOME 8.6 MG Oral Tablet JEFF ([facility]) Docusate Sodium 50 MG / sennosides, NURSING HOME 8.6 MG Oral Tablet sennosides 8.6 mg- docusate sodium 50 mg tablet Take 2 tablets by oral route at bedtime. sennosides 8.6 mg-docusate sodium 50 mg tablet Take 2 tablets by oral route at bedtime. 2 completed docusate sodiu m 50 MG / sennosides, NURSING HOME 8.6 MG Oral Tablet JEFF ([facility]) Steglatro 5 mg tablet [id number] completed ertugliflozin 5 MG Oral Tablet [Steglatro] JEFF ([facility]) ziprasidone 60 MG Oral Capsule ziprasidone 60 mg capsu le ziprasidone 60 mg capsule completed ziprasidone 60 MG Oral Capsule JEFF ([facility]) Amitriptyline Hydrochloride 50 MG Oral Tablet amitript yline 50 mg tablet amitriptyline 50 mg tablet completed amitriptyline hydrochloride 50 MG Oral Tablet JEFF ([facility]) Prazosin 1 MG Oral Capsule prazosin 1 mg capsule prazosin 1 mg capsule completed prazosin 1 MG Oral Capsul e JEFF ([facility]) sennosides, NURSING HOME 8.6 MG Oral Tablet [Senna-Time] senna 8.6 mg tablet senna 8.6 mg tablet completed sennosi azam, NURSING HOME 8.6 MG Oral Tablet [Senna-Time] JEFF ([facility]) 0.5 ML dulaglutide 1.5 MG/ML Auto-Inject or [Trulicity] Trulicity 0.75 mg/0.5 mL subcutaneous pen injector Trulicity 0.75 mg/0.5 mL subcutaneous pen injector completed 0.5 ML dulaglu tide 1.5 MG/ML Auto-Injector [Trulicity] JEFF ([facility]) Mirtazapine 45 MG Oral Tablet mirtazapine 45 mg tablet derrick zapine 45 mg tablet completed mirtazapine 45 MG Oral Tablet TRINIDAD ([facility]) Docusate Sodium 50 MG / sennosides, NURSING HOME 8.6 MG Oral Tablet sennosides 8.6 mg- docusate sodium 50 mg tablet Take 2 tablets by oral route at bedtime. sennosides 8.6 mg-docusate sodium 50 mg tablet Take 2 tablets by oral route at bedtime. 2 completed docusate sodiu m 50 MG / sennosides, NURSING HOME 8.6 MG Oral Tablet JEFF ([facility]) buspirone hydrochloride 10 MG Oral Tablet buspirone 10 mg tablet buspirone 10 mg tablet completed buspirone hydr ochloride 10 MG Oral Tablet JEFF ([facility]) Mirtazapine 45 MG Oral Tablet mirtazapine 45 mg tablet derrick zapine 45 mg tablet completed mirtazapine 45 MG Oral Tablet TRINIDAD ([facility]) Amitriptyline Hydrochloride 50 MG Oral Tablet amitript yline 50 mg tablet amitriptyline 50 mg tablet completed amitriptyline hydrochloride 50 MG Oral Tablet JEFF ([facility]) Clonazepam 1 MG Oral Tablet clonazepam 1 mg tablet clonazepam 1 mg ta blet completed clonazepam 1 MG Oral Tablet JEFF ([facility]) Ketoconazole 20 MG/ML Medicated Shampoo ketoconazole 2 % shampoo ketoconazole 2 % shampoo completed ketoconazole 20 MG/ML Medicated Shampoo JEFF ([facility]) OneTouch Verio test strips USE UP TO TWO TIMES A DAY DIRECTED [id number] completed OneTouch Verio test strip s [...] amitriptyline hydrochloride 75 MG Oral Tablet JEFF ([facility]) Ketoconazole 20 MG/ML Medicated Shampoo ketoconazole [facility] Steglatro 5 mg tablet [id number] completed ertugliflozin 5 MG Oral Tablet [Steglatro] TRINIDAD ([facility]) Clonazepam 0.5 MG Oral Tablet clonazepam 0.5 mg tablet TAKE ONE TABLET BY MOUTH NEEDED FOR 3 DAYS THEN ONE HALF TABLET UNTIL FINISHED MAXIMUM DAILY DOSE ONE TABLET clonazepam 0.5 mg tablet TAKE ONE TABLET BY MOUTH NEEDED FOR 3 DAYS THEN ONE HALF TABLET UNTIL FINISHED MAXIMUM DAILY DOSE ONE TABLET completed clonazepam 0.5 MG Or al Tablet TRINIDAD ([facility]) Mirtazapine 45 MG Oral Tablet mirtazapine 45 mg tablet derrick zapine 45 mg tablet completed mirtazapine 45 MG Oral Tablet TR[facility]IDAD ([facility]) Ketoconazole 20 MG/ML Medicated Shampoo ketoconazole 2 % shampoo ketoconazole 2 % shampoo completed ketoconazole 20 MG/ML Medicated Shampoo TRINIDAD ([facility]) Azithromycin 250 MG Oral Tablet azithromycin 250 mg ta blet azithromycin 250 mg tablet completed azithromycin 25 0 MG Oral Tablet TRINIDAD ([facility]) cefdinir 300 MG Oral Capsule cefdinir 300 mg capsule cefdinir 30 0 mg capsule completed cefdinir 300 M G Oral Capsule TRINIDAD ([facility]) OneTouch Verio Flex Meter [id number] compl eted OneTouch Verio Flex Meter TRINIDAD ([facility]) Simvastatin 10 MG Oral Tablet simvastati n 10 mg tablet TAKE ONE TABLET BY MOUTH EVERY DAY simvastatin 10 mg tablet TAKE ONE TABLET BY MOUTH EVERY DAY completed simvastatin 10 MG Oral Table t TRINIDAD ([facility]) buspirone hydrochloride 7.5 MG Oral Tablet buspirone 7 .5 mg tablet buspirone 7.5 mg tablet completed buspirone h ydrochloride 7.5 MG Oral Tablet TRINIDAD ([facility]) Famotidine 20 MG Oral Tablet famotidine 20 mg tablet famotidine 20 mg tablet completed famotidine 20 MG Oral Tablet TRINIDAD ([facility]) buspirone hydrochloride 7.5 MG Oral Tablet buspirone 7 .5 mg tablet buspirone 7.5 mg tablet completed buspirone h ydrochloride 7.5 MG Oral Tablet TRINIDAD ([facility]) buspirone hydrochloride 7.5 MG Oral Tablet buspirone 7 .5 mg tablet buspirone 7.5 mg tablet completed buspirone h ydrochloride 7.5 MG Oral Tablet JEFF ([facility]) sennosides 8.6 mg-docusate sodium 50 mg capsule Take 2 capsules by oral route at bedtime. [id number] 2 capsule(s) completed docusate sodium 50 MG / sennosides, NURSING HOME 8.6 MG Oral Capsule JEFF ([facility]) cefdinir 300 MG Oral Capsule cefdinir 300 mg capsule cefdinir 30 0 mg capsule completed cefdinir 300 M G Oral Capsule JEFF ([facility]) Triamcinolone Acetonide 1 MG/ML Topical Cream triamcinolone acetonide 0.1 % topical cream triamcinolone acetonide 0.1 % topical cream completed triamcinolone acetonide 1 MG/ML Topical Cream TRINIDAD ([facility]) Docusate Sodium 100 MG Oral Capsule [DOK] DOK 100 mg capsule DOK 100 mg capsule completed docusate sodiu m 100 MG Oral Capsule [DOK] JEFF ([facility]) benzonatate 200 MG Oral Capsule benzonatate 200 mg cap kenya benzonatate 200 mg capsule completed benzonatate 20 0 MG Oral Capsule TRINIDAD ([facility]) Simvastatin 10 MG [facility] Steglatro 5 mg tablet [id number] completed ertugliflozin 5 MG Oral Tablet [Steglatro] JEFF ([facility]) Clonidine Hydrochloride 0.2 MG Oral Tablet clonidine H Cl 0.2 mg tablet clonidine HCl 0.2 mg tablet completed clonidine hydrochloride 0.2 MG Oral Tablet JEFF ([facility]) OneTouch Verio Flex Meter [id number] compl eted OneTouch Verio Flex Meter JEFF ([facility]) Mirtazapine 45 MG Oral Tablet mirtazapine 45 mg tablet derrick zapine 45 mg tablet completed mirtazapine 45 MG Oral Tablet JEFF ([facility]) Amitriptyline Hydrochloride 50 MG Oral Tablet amitript yline 50 mg tablet amitriptyline 50 mg tablet completed amitriptyline hydrochloride 50 MG Oral Tablet JEFF ([facility]) Famotidine 20 MG Oral Tablet famotidine 20 mg tablet famotidine 20 mg tablet completed famotidine 20 MG Oral Tablet JEFF ([facility]) Clonidine Hydrochloride 0.2 MG Oral Tablet clonidine H Cl 0.2 mg tablet clonidine HCl 0.2 mg tablet completed clonidine hydrochloride 0.2 MG Oral Tablet JEFF ([facility]) OneTouch Verio Flex Meter [id number] compl eted OneTouch Verio Flex Meter TRINIDAD ([facility]) Mirtazapine 45 MG Oral Tablet mirtazapine 45 mg tablet derrick zapine 45 mg tablet completed mirtazapine 45 MG Oral Tablet TRINIDAD ([facility]) Clonazepam 1 MG Oral Tablet clonazepam 1 mg tablet clonazepam 1 mg ta blet completed clonazepam 1 MG Oral Tablet TRINIDAD ([facility]) Steglatro 5 mg tablet [id number] completed ertugliflozin 5 MG Oral Tablet [Steglatro] JEFF ([facility]) Amitriptyline Hydrochloride 50 MG Oral Tablet amitript yline 50 mg tablet amitriptyline 50 mg tablet completed amitriptyline hydrochloride 50 MG Oral Tablet TRINIDAD ([facility]) Mirtazapine 15 MG Oral Tablet mirtazapine 15 mg tablet derrick zapine 15 mg tablet completed mirtazapine 15 MG Oral Tablet JEFF ([facility]) benzonatate 200 MG Oral Capsule benzonatate 200 mg cap kenya benzonatate 200 mg capsule completed benzonatate 20 0 MG Oral Capsule TRINIDAD ([facility]) Steglatro 5 mg tablet [id number] completed ertugliflozin 5 MG Oral Tablet [Steglatro] JEFF ([facility]) buspirone hydrochloride 10 MG Oral Tablet buspirone 10 mg tablet buspirone 10 mg tablet completed buspirone hydr ochloride 10 MG Oral Tablet JEFF ([facility]) Propranolol Hydrochloride 20 MG Oral Tablet propranolo l 20 mg tablet propranolol 20 mg tablet completed propranolol hydrochloride 20 MG Oral Tablet TRINIDAD ([facility]) BD Ultra-Fine Short Pen Needle 31 gauge x 5/16" USE ONCE DAILY [id number] completed BD Ultra-Fine Short Pen Need le 31 gauge x 5/16" TRINIDAD ([facility]) Steglatro 5 mg tablet [id number] completed ertugliflozin 5 MG Oral Tablet [Steglatro] TRINIDAD ([facility]) buspirone hydrochloride 10 MG Oral Tablet buspirone 10 mg tablet buspirone 10 mg tablet completed buspirone hydr ochloride 10 MG Oral Tablet JEFF ([facility]) lamotrigine 25 MG Oral Tablet lamotrigine 25 mg tablet lamot rigine 25 mg tablet completed lamotrigine 25 MG Oral Tablet TRINIDAD ([facility]) Isopropyl Alcohol 0.7 ML/ML Medicated Pad Alcohol Prep Pads Alco hol Prep Pads completed isopropyl alco hol 0.7 ML/ML Medicated Pad JEFF ([facility]) cefdinir 300 MG Oral Capsule cefdinir 300 mg capsule cefdinir 30 0 mg capsule completed cefdinir 300 M G Oral Capsule TRINIDAD ([facility]) Azithromycin 250 MG Oral Tablet azithromycin 250 mg ta blet azithromycin 250 mg tablet completed azithromycin 25 0 MG Oral Tablet TRINIDAD ([facility]) sennosides 8.6 mg-docusate sodium 50 mg capsule Take 2 capsules by oral route at bedtime. [id number] 2 capsule(s) completed docusate sodium 50 MG / sennosides, NURSING HOME 8.6 MG Oral Capsule JEFF ([facility]) Propranolol Hydrochloride 20 MG Oral Tablet propranolo l 20 mg tablet propranolol 20 mg tablet completed propranolol hydrochloride 20 MG Oral Tablet JEFF ([facility]) Docusate Sodium 50 MG / sennosides, NURSING HOME 8.6 MG Oral Tablet sennosides 8.6 mg- docusate sodium 50 mg tablet Take 2 tablets by oral route at bedtime. sennosides 8.6 mg-docusate sodium 50 mg tablet Take 2 tablets by oral route at bedtime. 2 completed docusate sodiu m 50 MG / sennosides, NURSING HOME 8.6 MG Oral Tablet JEFF ([facility]) OneTouch Delica Plus Lancet 33 gauge [id number] completed OneTouch Delica Plus Lancet 33 gauge JEFF ([facility]) buspirone hydrochloride 7.5 MG Oral [...] clonidine hydrochloride 0.2 MG Oral Tablet JEFF ([facility]) Clonidine Hydrochloride 0.2 MG Oral Tablet clonidine H Cl 0.2 mg tablet clonidine HCl 0.2 mg tablet completed clonidine hydrochloride 0.2 MG Oral Tablet JEFF ([facility]) Clonazepam 1 MG Oral Tablet [...] amitriptyline hydrochloride 75 MG Oral Tablet JEFF ([facility]) Mirtazapine 15 MG Oral Tablet mirtazapine 15 mg tablet derrick zapine 15 mg tablet completed mirtazapine 15 MG Oral Tablet JEFF ([facility]) Propranolol Hydrochloride 20 MG Oral Tablet propranolo l 20 mg tablet propranolol 20 mg tablet completed propranolol hydrochloride 20 MG Oral Tablet JEFF ([facility]) OneTouch Delica Plus Lancet 33 gauge [id number] completed OneTouch Delica Plus Lancet 33 gauge JEFF ([facility]) Azithromycin 250 MG Oral Tablet azithromycin 250 mg ta blet azithromycin 250 mg tablet completed azithromycin 25 0 MG Oral Tablet JEFF ([facility]) Docusate Sodium 50 MG / sennosides, NURSING HOME 8.6 MG Oral Tablet sennosides 8.6 mg- docusate sodium 50 mg tablet Take 2 tablets by oral route at bedtime. sennosides 8.6 mg-docusate sodium 50 mg tablet Take 2 tablets by oral route at bedtime. 2 completed docusate sodiu m 50 MG / sennosides, NURSING HOME 8.6 MG Oral Tablet TRINIDAD ([facility]) Isopropyl Alcohol 0.7 ML/ML Medicated Pad Alcohol Prep Pads Alco hol Prep Pads completed isopropyl alco hol 0.7 ML/ML Medicated Pad TRINIDAD ([facility]) Amitriptyline Hydrochloride 75 MG Oral Tablet amitript yline 75 mg tablet amitriptyline 75 mg tablet completed amitriptyline hydrochloride 75 MG Oral Tablet TR[facility]IDAD ([facility]) 0.5 ML dulaglutide 1.5 MG/ML Auto-Inject or [Trulicity] Trulicity 0.75 mg/0.5 mL subcutaneous pen injector Trulicity 0.75 mg/0.5 mL subcutaneous pen injector completed 0.5 ML dulaglu tide 1.5 MG/ML Auto-Injector [Trulicity] TRINIDAD ([facility]) Clonazepam 0.5 MG Disintegrating Oral Ta blet clonazepam 0.5 mg disintegrating tablet clonazepam 0.5 mg disintegrating tablet completed clonazepam 0.5 MG Disintegrating Oral Tablet TRINIDAD ([facility]) Docusate Sodium 100 MG Oral Capsule [DOK] DOK 100 mg capsule DOK 100 mg capsule completed docusate sodiu m 100 MG Oral Capsule [DOK] JEFF ([facility]) Prazosin 1 MG Oral Capsule prazosin 1 mg capsule prazosin 1 mg capsule completed prazosin 1 MG Oral Capsul e TRINIDAD ([facility]) Steglatro 5 mg tablet [id number] completed ertugliflozin 5 MG Oral Tablet [Steglatro] TRINIDAD ([facility]) Amitriptyline Hydrochloride 75 MG Oral Tablet amitript yline 75 mg tablet amitriptyline 75 mg tablet completed amitriptyline hydrochloride 75 MG Oral Tablet TRINIDAD ([facility]) buspirone hydrochloride 7.5 MG Oral Tablet buspirone 7 .5 mg tablet buspirone 7.5 mg tablet completed buspirone h ydrochloride 7.5 MG Oral Tablet JEFF ([facility]) Clindamycin 150 MG Oral Capsule clindamycin HCl 150 mg capsule clindamycin HCl 150 mg capsule completed clindam ycin 150 MG Oral Capsule TRINIDAD ([facility]) benztropine mesylate 0.5 MG Oral Tablet benztropine 0. 5 mg tablet benztropine 0.5 mg tablet completed benztrop ine mesylate 0.5 MG Oral Tablet TRINIDAD ([facility]) lamotrigine 25 MG Oral Tablet lamotrigine 25 mg tablet lamot rigine 25 mg tablet completed lamotrigine 25 MG Oral Tablet TRINIDAD ([facility]) Clonidine Hydrochloride 0.2 MG Oral Tablet clonidine H Cl 0.2 mg tablet clonidine HCl 0.2 mg tablet completed clonidine hydrochloride 0.2 MG Oral Tablet TRINIDAD ([facility]) OneTouch Verio Flex Meter [id number] compl eted OneTouch Verio Flex Meter TRINIDAD ([facility]) Mirtazapine 15 MG Oral Tablet mirtazapine 15 mg tablet derrick zapine 15 mg tablet completed mirtazapine 15 MG Oral Tablet [facility]IDAD ([facility]) 0.5 ML dulaglutide 1.5 MG/ML Auto-Inject or [Trulicity] Trulicity 0.75 mg/0.5 mL subcutaneous pen injector Trulicity 0.75 mg/0.5 mL subcutaneous pen injector completed 0.5 ML dulaglu tide 1.5 MG/ML Auto-Injector [Trulicity] TRINIDAD ([facility]) Docusate Sodium 50 MG / sennosides, NURSING HOME 8.6 MG Oral Tablet sennosides 8.6 mg- docusate sodium 50 mg tablet Take 2 tablets by oral route at bedtime. sennosides 8.6 mg-docusate sodium 50 mg tablet Take 2 tablets by oral route at bedtime. 2 completed docusate sodiu m 50 MG / sennosides, NURSING HOME 8.6 MG Oral Tablet JEFF ([facility]) Clonazepam 0.5 MG Disintegrating Oral Ta blet clonazepam 0.5 mg disintegrating tablet clonazepam 0.5 mg disintegrating tablet completed clonazepam 0.5 MG Disintegrating Oral Tablet JEFF ([facility]) Amitriptyline Hydrochloride 75 MG Oral Tablet amitript yline 75 mg tablet amitriptyline 75 mg tablet completed amitriptyline hydrochloride 75 MG Oral Tablet JEFF ([facility]) Docusate Sodium 50 MG / sennosides, NURSING HOME 8.6 MG Oral Tablet sennosides 8.6 mg- docusate sodium 50 mg tablet Take 2 tablets by oral route at bedtime. sennosides 8.6 mg-docusate sodium 50 mg tablet Take 2 tablets by oral route at bedtime. 2 completed docusate sodiu m 50 MG / sennosides, NURSING HOME 8.6 MG Oral Tablet JEFF ([facility]) buspirone hydrochloride 10 MG Oral Tablet buspirone 10 mg tablet buspirone 10 mg tablet completed buspirone hydr ochloride 10 MG Oral Tablet JEFF ([facility]) sennosides, NURSING HOME 8.6 MG Oral Tablet [Senna-Time] senna 8.6 mg tablet senna 8.6 mg tablet completed sennosi azam, NURSING HOME 8.6 MG Oral Tablet [Senna-Time] JEFF ([facility]) lamotrigine 25 MG Oral Tablet lamotrigine 25 mg tablet lamot rigine 25 mg tablet completed lamotrigine 25 MG Oral Tablet JEFF ([facility]) lamotrigine 100 MG Oral Tablet lamotrigi ne 100 mg tablet TAKE ONE TABLET BY MOUTH ONCE DAILY lamotrigine 100 mg tablet TAKE ONE TABLET BY MOUTH ONC E DAILY completed lamotrigine 10 0 MG Oral Tablet EJFF ([facility]) Propranolol Hydrochloride 20 MG Oral Tablet propranolo l 20 mg tablet propranolol 20 mg tablet completed propranolol hydrochloride 20 MG Oral Tablet JEFF ([facility]) OneTouch Delica Plus Lancet 33 gauge [id number] completed OneTouch Delica Plus Lancet 33 gauge JEFF ([facility]) Prazosin 1 MG Oral Capsule [...] 2 capsules by oral route at bedtime. [id number] 2 capsule(s) completed docusate sodium 50 MG / sennosides, NURSING HOME 8.6 MG Oral Capsule JEFF ([facility]) OneTouch Verio Flex Meter [id number] compl eted OneTouch Verio Flex Meter JEFF ([facility]) buspirone hydrochloride 15 MG Oral Table t buspirone 15 mg tablet TAKE ONE TABLET BY MOUTH THREE TIMES A DAY buspirone 15 mg tablet TAKE ONE TABLET B Y MOUTH THREE TIMES A DAY completed buspirone hydrochloride 15 MG Oral Tablet JEFF ([facility]) Clonazepam 1 MG Oral Tablet clonazepam 1 mg tablet clonazepam 1 mg ta blet completed clonazepam 1 MG Oral Tablet JEFF ([facility]) Amitriptyline Hydrochloride 75 MG Oral Tablet amitript yline 75 mg tablet amitriptyline 75 mg tablet completed amitriptyline hydrochloride 75 MG Oral Tablet JEFF ([facility]) Amitriptyline Hydrochloride 75 MG Oral Tablet amitript yline 75 mg tablet amitriptyline 75 mg tablet completed amitriptyline hydrochloride 75 MG Oral Tablet JEFF ([facility]) Clonazepam 0.5 MG Disintegrating Oral [...] ML dulaglu tide 1.5 MG/ML Auto-Injector [Trulicity] TRINIDAD ([facility]) buspirone hydrochloride 10 MG Oral Tablet buspirone 10 mg tablet buspirone 10 mg tablet completed buspirone hydr ochloride 10 MG Oral Tablet TR[facility]IDAD ([facility]) Clonidine Hydrochloride 0.2 MG Oral Tablet clonidine H Cl 0.2 mg tablet clonidine HCl 0.2 mg tablet completed clonidine hydrochloride 0.2 MG Oral Tablet TR[facility]IDAD ([facility]) cefdinir 300 MG Oral Capsule cefdinir 300 mg capsule cefdinir 30 0 mg capsule completed cefdinir 300 M G Oral Capsule TRINIDAD ([facility]) BD Ultra-Fine Short Pen Needle 31 gauge x 5/16" USE DIRECTED ONCE DAILY [id number] completed BD Ultr a-Fine Short Pen Needle 31 gauge x 5/16" [facility] ([facility]) buspirone hydrochloride 15 MG Oral Table t buspirone 15 mg tablet TAKE ONE TABLET BY MOUTH THREE TIMES A DAY buspirone 15 mg tablet TAKE ONE TABLET B Y MOUTH THREE TIMES A DAY completed buspirone hydrochloride 15 MG Oral Tablet [facility] ([facility]) Mirtazapine 15 MG Oral Tablet mirtazapine 15 mg tablet derrick zapine 15 mg tablet completed mirtazapine 15 MG Oral Tablet [facility] ([facility]) OneTouch Verio test strips USE DIRECTED UP TO TWO TIMES A DAY [id number] completed OneTouch Verio test strip s [facility] ([facility]) cefdinir 300 MG Oral Capsule cefdinir 300 mg capsule cefdinir 30 0 mg capsule completed cefdinir 300 M G Oral Capsule [facility] ([facility]) sennosides 8.6 mg-docusate sodium 50 mg capsule Take 2 capsules by oral route at bedtime. [id number] 2 capsule(s) completed docusate sodium 50 MG / sennosides, NURSING HOME 8.6 MG Oral Capsule [facility] ([facility]) Docusate Sodium 100 MG Oral Capsule [DOK] DOK 100 mg capsule DOK 100 mg capsule completed docusate sodiu m 100 MG Oral Capsule [DOK] [facility] ([facility]) Amitriptyline Hydrochloride 75 MG Oral Tablet amitript yline 75 mg tablet amitriptyline 75 mg tablet completed amitriptyline hydrochloride 75 MG Oral Tablet [facility] ([facility]) buspirone hydrochloride 10 MG Oral Tablet buspirone 10 mg tablet buspirone 10 mg tablet completed buspirone hydr ochloride 10 MG Oral Tablet [facility] ([facility]) benztropine mesylate 0.5 MG Oral Tablet benztropine 0. 5 mg tablet benztropine 0.5 mg tablet completed benztrop ine mesylate 0.5 MG Oral Tablet [facility] ([facility]) Propranolol Hydrochloride 20 MG Oral Tablet propranolo l 20 mg tablet propranolol 20 mg tablet completed propranolol hydrochloride 20 MG Oral Tablet [facility] ([facility]) cefdinir 300 MG Oral Capsule cefdinir 300 mg capsule cefdinir 30 0 mg capsule completed cefdinir 300 M G Oral Capsule [facility] ([facility]) Simvastatin 10 MG Oral Tablet simvastati n 10 mg tablet TAKE ONE TABLET BY MOUTH EVERY DAY simvastatin 10 mg tablet TAKE ONE TABLET BY MOUTH EVERY DAY completed simvastatin 10 MG Oral Table t [facility] ([facility]) Famotidine 20 MG Oral Tablet famotidine 20 mg tablet famotidine 20 mg tablet completed famotidine 20 MG Oral Tablet [facility] ([facility]) Triamcinolone Acetonide 1 MG/ML Topical Cream triamcinolone acetonide 0.1 % topical cream triamcinolone acetonide 0.1 % topical cream completed triamcinolone acetonide 1 MG/ML Topical Cream [facility] ([facility]) Azithromycin 250 MG Oral Tablet azithromycin 250 mg ta blet azithromycin 250 mg tablet completed azithromycin 25 0 MG Oral Tablet [facility] ([facility]) benzonatate 200 MG Oral Capsule benzonatate 200 mg cap kenya benzonatate 200 mg capsule completed benzonatate 20 0 MG Oral Capsule [facility] ([facility]) buspirone hydrochloride 7.5 MG Oral Tablet buspirone 7 .5 mg tablet buspirone 7.5 mg tablet completed buspirone h ydrochloride 7.5 MG Oral Tablet [facility] ([facility]) BD Ultra-Fine Short Pen Needle 31 gauge x 02/25" USE ONCE DAILY [id number] completed BD Ultra-Fine Short Pen Need le 31 gauge x 02/25" [facility] ([facility]) Famotidine 20 MG Oral Tablet famotidine 20 mg tablet famotidine 20 mg tablet completed famotidine 20 MG Oral Tablet [facility] ([facility]) sennosides, NURSING HOME 8.6 MG Oral Tablet [Senna-Time] senna 8.6 mg tablet senna 8.6 mg tablet completed sennosi azam, NURSING HOME 8.6 MG Oral Tablet [Senna-Time] [facility] ([facility]) Azithromycin 250 MG Oral Tablet azithromycin 250 mg ta blet azithromycin 250 mg tablet completed azithromycin 25 0 MG Oral Tablet [facility] ([facility]) Famotidine 20 MG Oral Tablet famotidine 20 mg tablet famotidine 20 mg tablet completed famotidine 20 MG Oral Tablet [facility] ([facility]) Docusate Sodium 50 MG / sennosides, NURSING HOME 8.6 MG Oral Tablet sennosides 8.6 mg- docusate sodium 50 mg tablet Take 2 tablets by oral route at bedtime. sennosides 8.6 mg-docusate sodium 50 mg tablet Take 2 tablets by oral route at bedtime. 2 completed docusate sodiu m 50 MG / sennosides, NURSING HOME 8.6 MG Oral Tablet [facility] ([facility]) ziprasidone 60 MG Oral Capsule ziprasidone 60 mg capsu le ziprasidone 60 mg capsule completed ziprasidone 60 MG Oral Capsule [facility] ([facility]) Ofloxacin 3 MG/ML Otic Solution ofloxaci n 0.3 % ear drops INSTILL 10 DROPS INTO AFFECTED EAR S EVERY DAY ofloxacin 0.3 % ear drops INSTILL 10 VANDANA PS INTO AFFECTED EAR S EVERY DAY completed ofloxacin 3 MG/ML Otic Solution [facility] ([facility]) Amitriptyline Hydrochloride 75 MG Oral Tablet amitript yline 75 mg tablet amitriptyline 75 mg tablet completed amitriptyline hydrochloride 75 MG Oral Tablet [facility] ([facility]) buspirone hydrochloride 10 MG Oral Tablet buspirone 10 mg tablet buspirone 10 mg tablet completed buspirone hydr ochloride 10 MG Oral Tablet JE[facility] ([facility]) benzonatate 200 MG Oral Capsule benzonatate 200 mg cap kenya benzonatate 200 mg capsule completed benzonatate 20 0 MG Oral Capsule [facility] ([facility]) Azithromycin 250 MG [...] completed clonazepam 0.5 MG Or al Tablet [facility] ([facility]) Mirtazapine 15 MG Oral Tablet mirtazapine 15 mg tablet derrick zapine 15 mg tablet completed mirtazapine 15 MG Oral Tablet [facility] ([facility]) Amitriptyline Hydrochloride 50 MG Oral Tablet amitript yline 50 mg tablet amitriptyline 50 mg tablet completed amitriptyline hydrochloride 50 MG Oral Tablet [facility] ([facility]) OneTouch Verio Flex Meter [id number] compl eted OneTouch Verio Flex Meter [facility] ([facility]) Docusate Sodium 50 MG / sennosides, NURSING HOME 8.6 MG Oral Tablet sennosides 8.6 mg- docusate sodium 50 mg tablet Take 2 tablets by oral route at bedtime. sennosides 8.6 mg-docusate sodium 50 mg tablet Take 2 tablets by oral route at bedtime. 2 completed docusate sodiu m 50 MG / sennosides, NURSING HOME 8.6 MG Oral Tablet [facility] ([facility]) cefdinir 300 MG Oral Capsule cefdinir 300 mg capsule cefdinir 30 0 mg capsule completed cefdinir 300 M G Oral Capsule [facility] ([facility]) Simvastatin 10 MG [...] completed clonazepam 0.5 MG Disintegrating Oral Tablet [facility] ([facility]) Simvastatin 10 MG Oral Tablet simvastati n 10 mg tablet TAKE ONE TABLET BY MOUTH EVERY DAY simvastatin 10 mg tablet TAKE ONE TABLET BY MOUTH EVERY DAY completed simvastatin 10 MG Oral Table t JEFF ([facility]) Docusate Sodium 50 MG / sennosides, NURSING HOME 8.6 MG Oral Tablet sennosides 8.6 mg- docusate sodium 50 mg tablet Take 2 tablets by oral route at bedtime. sennosides 8.6 mg-docusate sodium 50 mg tablet Take 2 tablets by oral route at bedtime. 2 completed docusate sodiu m 50 MG / sennosides, NURSING HOME 8.6 MG Oral Tablet [facility] ([facility]) Triamcinolone Acetonide 1 MG/ML Topical Cream triamcinolone acetonide 0.1 % topical cream triamcinolone acetonide 0.1 % topical cream completed triamcinolone acetonide 1 MG/ML Topical Cream [facility] ([facility]) Mirtazapine 45 MG Oral Tablet mirtazapine 45 mg tablet derrick zapine 45 mg tablet completed mirtazapine 45 MG Oral Tablet [facility] ([facility]) ziprasidone 60 MG Oral Capsule ziprasidone 60 mg capsu le ziprasidone 60 mg capsule completed ziprasidone 60 MG Oral Capsule [facility] ([facility]) benztropine mesylate 0.5 MG Oral Tablet benztropine 0. 5 mg tablet benztropine 0.5 mg tablet completed benztrop ine mesylate 0.5 MG Oral Tablet [facility] ([facility]) Docusate Sodium 50 MG / sennosides, NURSING HOME 8.6 MG Oral Tablet sennosides 8.6 mg- docusate sodium 50 mg tablet Take 2 tablets by oral route at bedtime. sennosides 8.6 mg-docusate sodium 50 mg tablet Take 2 tablets by oral route at bedtime. 2 completed docusate sodiu m 50 MG / sennosides, NURSING HOME 8.6 MG Oral Tablet JE[facility] ([facility]) lamotrigine 25 MG Oral Tablet [...] clonidine hydrochloride 0.2 MG Oral Tablet [facility] ([facility]) Docusate Sodium 50 MG / sennosides, NURSING HOME 8.6 MG Oral Tablet sennosides 8.6 mg- docusate sodium 50 mg tablet Take 2 tablets by oral route at bedtime. sennosides 8.6 mg-docusate sodium 50 mg tablet Take 2 tablets by oral route at bedtime. 2 completed docusate sodiu m 50 MG / sennosides, NURSING HOME 8.6 MG Oral Tablet [facility] ([facility]) benzonatate 200 MG Oral Capsule benzonatate 200 mg cap kenya benzonatate 200 mg capsule completed benzonatate 20 0 MG Oral Capsule [facility] ([facility]) Ketoconazole 20 MG/ML Medicated Shampoo ketoconazole 2 % shampoo ketoconazole 2 % shampoo completed ketoconazole 20 MG/ML Medicated Shampoo JEFF ([facility]) Propranolol Hydrochloride 20 MG Oral Tablet propranolo l 20 mg tablet propranolol 20 mg tablet completed propranolol hydrochloride 20 MG Oral Tablet [facility] ([facility]) Isopropyl Alcohol 0.7 ML/ML Medicated Pad Alcohol Prep Pads Alco hol Prep Pads completed isopropyl alco hol 0.7 ML/ML Medicated Pad [facility] ([facility]) sennosides, NURSING HOME 8.6 MG Oral Tablet [Senna-Time] senna 8.6 mg tablet senna 8.6 mg tablet completed sennosi azam, NURSING HOME 8.6 MG Oral Tablet [Senna-Time] [facility] ([facility]) cefdinir 300 MG Oral Capsule cefdinir 300 mg capsule cefdinir 30 0 mg capsule completed cefdinir 300 M G Oral Capsule [facility] ([facility]) cefdinir 300 MG Oral Capsule cefdinir 300 mg capsule cefdinir 30 0 mg capsule completed cefdinir 300 M G Oral Capsule [facility] ([facility]) ziprasidone 60 MG Oral Capsule ziprasidone 60 mg capsu le ziprasidone 60 mg capsule completed ziprasidone 60 MG Oral Capsule [facility] ([facility]) ziprasidone 60 MG Oral Capsule ziprasidone 60 mg capsu le ziprasidone 60 mg capsule completed ziprasidone 60 MG Oral Capsule [facility] ([facility]) Cephalexin 500 MG Oral Capsule cephalexin 500 mg capsu le cephalexin 500 mg capsule completed cephalexin 500 MG Oral Capsule [facility] ([facility]) Clonidine Hydrochloride 0.2 MG Oral Tablet clonidine H Cl 0.2 mg tablet clonidine HCl 0.2 mg tablet completed clonidine hydrochloride 0.2 MG Oral Tablet [facility] ([facility]) Docusate Sodium 100 MG Oral Capsule [DOK] DOK 100 mg capsule DOK 100 mg capsule completed docusate sodiu m 100 MG Oral Capsule [DOK] [facility] ([facility]) lamotrigine 100 MG Oral Tablet lamotrigi ne 100 mg tablet TAKE ONE TABLET BY MOUTH ONCE DAILY lamotrigine 100 mg tablet TAKE ONE TABLET BY MOUTH ONC E DAILY completed lamotrigine 10 0 MG Oral Tablet [facility] ([facility]) Clonazepam 0.5 MG [...] completed clonazepam 0.5 MG Or al Tablet [facility] ([facility]) sennosides 8.6 mg-docusate sodium 50 mg capsule Take 2 capsules by oral route at bedtime. [id number] 2 capsule(s) completed docusate sodium 50 MG / sennosides, NURSING HOME 8.6 MG Oral Capsule [facility] ([facility]) Trazodone Hydrochloride 50 MG Oral Table t trazodone 50 mg tablet TAKE ONE TABLET BY MOUTH EVERY DAY AT BEDTIME trazodone 50 mg tablet TAKE ONE TABLET B Y MOUTH EVERY DAY AT BEDTIME completed trazodone hydrochloride 50 MG Oral Tablet JE[facility] ([facility]) Mirtazapine 15 MG Oral Tablet mirtazapine 15 mg tablet derrick zapine 15 mg tablet completed mirtazapine 15 MG Oral Tablet JE[facility] ([facility]) Amitriptyline Hydrochloride 75 MG Oral Tablet amitript yline 75 mg tablet amitriptyline 75 mg tablet completed amitriptyline hydrochloride 75 MG Oral Tablet [facility] ([facility]) Clonidine Hydrochloride 0.2 MG Oral Tablet clonidine H Cl 0.2 mg tablet clonidine HCl 0.2 mg tablet completed clonidine hydrochloride 0.2 MG Oral Tablet [facility] ([facility]) OneTouch Verio Flex Meter [id number] compl eted OneTouch Verio Flex Meter [facility] ([facility]) 0.5 ML dulaglutide 1.5 MG/ML Auto-Inject or [Trulicity] Trulicity 0.75 mg/0.5 mL subcutaneous pen injector Trulicity 0.75 mg/0.5 mL subcutaneous pen injector completed 0.5 ML dulaglu tide 1.5 MG/ML Auto-Injector [Trulicity] [facility] ([facility]) lamotrigine 25 MG Oral Tablet lamotrigine 25 mg tablet lamot rigine 25 mg tablet completed lamotrigine 25 MG Oral Tablet [facility] ([facility]) OneTouch Delica Plus Lancet 33 gauge [id number] completed OneTouch Delica Plus Lancet 33 gauge [facility] ([facility]) Prazosin 1 MG Oral Capsule prazosin 1 mg capsule prazosin 1 mg capsule completed prazosin 1 MG Oral Capsul e [facility] ([facility]) Triamcinolone Acetonide 1 MG/ML Topical Cream triamcinolone acetonide 0.1 % topical cream triamcinolone acetonide 0.1 % topical cream completed triamcinolone acetonide 1 MG/ML Topical Cream [facility] ([facility]) Clonazepam 1 MG Oral Tablet clonazepam 1 mg tablet clonazepam 1 mg ta blet completed clonazepam 1 MG Oral Tablet JE[facility] ([facility]) Clindamycin 150 MG Oral Capsule clindamycin HCl 150 mg capsule clindamycin HCl 150 mg capsule completed clindam ycin 150 MG Oral Capsule [facility] ([facility]) Simvastatin 10 [...] completed benzonatate 20 0 MG Oral Capsule [facility] ([facility]) Famotidine 20 MG Oral Tablet famotidine 20 mg tablet famotidine 20 mg tablet completed famotidine 20 MG Oral Tablet [facility] ([facility]) benzonatate 200 MG Oral Capsule benzonatate 200 mg cap kenya benzonatate 200 mg capsule completed benzonatate 20 0 MG Oral Capsule [facility] ([facility]) buspirone hydrochloride 10 MG Oral Tablet buspirone 10 mg tablet buspirone 10 mg tablet completed buspirone hydr ochloride 10 MG Oral Tablet [facility] ([facility]) Simvastatin 10 MG Oral Tablet simvastati n 10 mg tablet TAKE ONE TABLET BY MOUTH EVERY DAY simvastatin 10 mg tablet TAKE ONE TABLET BY MOUTH EVERY DAY completed simvastatin 10 MG Oral Table t [facility] ([facility]) OneTouch Verio Flex Meter [id number] compl eted OneTouch Verio Flex Meter [facility] ([facility]) 0.5 ML dulaglutide 1.5 MG/ML Auto-Inject or [Trulicity] Trulicity 0.75 mg/0.5 mL subcutaneous pen injector Trulicity 0.75 mg/0.5 mL subcutaneous pen injector completed 0.5 ML dulaglu tide 1.5 MG/ML Auto-Injector [Trulicity] [facility] ([facility]) Prazosin 1 MG Oral Capsule prazosin 1 mg capsule prazosin 1 mg capsule completed prazosin 1 MG Oral Capsul e [facility] ([facility]) Insurance Providers Payer name Policy type / Coverage type Policy ID Covered libertarian ID Covered libertarian's relationship to talamantes Policy Talamantes Plan Information [facility] COMMUNITY PLAN [id number] SELF [id number] OtherInbox [id number] SELF [id number] HMO BLUE [id number] SP [id number] BLUE CROSS VANESSA PLAN [id number] SP [id number] [facility] COMMUNITY PLAN [id number] SP [id number] Hmo Blue Option/Medicaid Health Maintenance Organization (HMO) V [id number] Self [id number] Hmo Blue Option/Medicaid Health Maintenance Organization (HMO) V [id number] Self [id number] Hmo Blue Option/Medicaid Health Maintenance Organization (HMO) V [id number] Self [id number] [facility] Medigap Part B [id number] Self [id number] Medicaid S [id number] S [id number] Managed Care BCBS O [id number] S [id number] Medicaid S [id number] S [id number] Medicaid S [id number] S [id number] [facility] Essential Plan P [id number] S [id number] Managed Care - Community Plan [facility] P [id number] S [id number] Medicaid S [id number] S [id number] Managed Care - Community Plan [facility] P [id number] S [id number] Medicaid S [id number] S [id number] Managed Care - Community Plan [facility] P [id number] S [id number] Managed Care - UHC Community Plan P [id number] S [id number] Medicaid S [id number] S [id number] Managed Care - UH Community Plan P [id number] S [id number] Medicaid S [id number] S [id number] BCBS Federal O [id number] S [id number] [facility]CA[facility]) P UNAVAILABLE [id number] S UNAVAILABLE EXCELLUS BCBS P [id number] S [id number] Self Pay O [id number] S [id number] [facility] [id number] SP [id number] UN COMMUNITY PLAN [facility] [id number] SP [id number] [facility] O [id number] S [id number] [facility] Health Maintenance Organization (HMO) [id number] Self [id number] MEDICAID [id number] SP [id number] Managed Care - Community Plan [facility] P [id number] S [id number] [facility] Health Maintenance Organization (HMO) [id number] Self [id number] [facility] Health Maintenance Organization ([facility]) [id number] Self [id number] MEDICAID [id number] SP [id number] UN COMMUNITY PLAN [facility] [id number] SP [id number] [facility] Comm Plan Medicaid F [id number] SELF [id number] Managed Care - Community Plan [facility] P [id number] S [id number] UN AMERICHOICE XIX -HMO [id number] 18 [id number] [facility] O [id number] S [id number] MEDICAID [id number] SP [id number] [facility] HMO/[facility] FAMILY NO CO PAY [id number] P [id number] SELFPAY P HMO BLUE/MEDICAID [id number] P [id number] MEDICAID [id number] SP [id number] UN COMMUNITY PLAN [facility] [id number] SP [id number] Problems, Conditions, and Diagnoses Code Display Name Description Problem Type Effective Dates Data Source(s) F17.200 Nicotine dependence, unspecified, uncomp licated Tobacco Use Disorder, Moderate Condition 07/02/2021 12:00:00 AM EDT [facility] ([facility]) 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 Somatic Symptom D isorder Condition 07/02/2021 12:00:00 AM EDT [facility] ([facility]) F31.63 Bipolar disorder, current ep isode mixed, severe, without psychotic features Bipolar disord, crnt epsd mixed, severe, w/o psych features Condition 07/02/2021 12:00:00 AM EDT [facility] ([facility]) [id number] Primary erectile dysfunction Primary Erectile Dysfunct ion Problem 06/12/2021 12:00:00 AM EDT JE[facility] ([facility]) [id number] Primary erectile dysfunction Primary Erectile Dysfunct ion Problem 06/12/2021 12:00:00 AM EDT [facility] ([facility]) 82565337 Acute otitis externa Acute Otitis Externa Problem 05/02/2021 12:00:00 AM EDT JE[facility] ([facility]) 66789358 Acute otitis externa Acute Otitis Externa Problem 05/02/2021 12:00:00 AM EDT [facility] ([facility]) 05806297 Acute otitis externa Acute Otitis Externa Problem 05/02/2021 12:00:00 AM EDT JE[facility] ([facility]) [id number] Chest pain Chest Pain Problem 03/22/2021 12:00:00 AM ED T [facility] ([facility]) [id number] Tobacco user Tobacco User Problem 03/22/2021 12:00:00 A M EDT JEFF ([facility]) [id number] Chest pain Chest Pain Problem 03/22/2021 12:00:00 AM ED T JEFF ([facility]) [id number] Tobacco user Tobacco User Problem 03/22/2021 12:00:00 A M EDT JE[facility] ([facility]) [id number] Chest pain Chest Pain Problem 03/22/2021 12:00:00 AM ED T [facility] ([facility]) [id number] Tobacco user Tobacco User Problem 03/22/2021 12:00:00 A M EDT JEFF ([facility]) [id number] Chest pain Chest Pain Problem 03/22/2021 12:00:00 AM ED T JE[facility] ([facility]) [id number] Tobacco user Tobacco User Problem 03/22/2021 12:00:00 A M EDT [facility] ([facility]) 75395576 Chest pain Chest Pain Problem 03/22/2021 12:00:00 AM ED T JEFF ([facility]) [id number] Tobacco user Tobacco User Problem 03/22/2021 12:00:00 A M EDT JE[facility] ([facility]) 57331723 Chest pain Chest Pain Problem 03/22/2021 12:00:00 AM ED T JEFF ([facility]) [id number] Tobacco user Tobacco User Problem 03/22/2021 12:00:00 A M EDT [facility] ([facility]) F17.200 Nicotine dependence, unspecified, uncomp licated Tobacco Use Disorder, Moderate Condition 12/07/2020 12:00:00 AM EST [facility] ([facility]) 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) E11.9 Type 2 diabetes mellitus Type 2 diabetes mellitus Prob tiffanie 10/07/2020 12:00:00 AM EST [facility] ([facility] L60.0 Ingrowing nail Ingrowing nail Problem 10/07/2020 12:00: 00 AM EST [facility] ([facility] L03.032 Cellulitis of left toe Cellulitis of left toe Problem 10/07/2020 12:00:00 AM EST [facility] ([facility] L03.031 Cellulitis of right toe Cellulitis of right toe Proble m 10/07/2020 12:00:00 AM EST [facility] ([facility] [id number] Bilateral earache Bilateral Earache Problem 10/03 12:00:00 AM EST [facility] ([facility]) [id number] Bilateral earache Bilateral Earache Problem 10/03 12:00:00 AM EST [facility] ([facility]) [id number] Bilateral earache Bilateral Earache Problem 10/03 12:00:00 AM EST [facility] ([facility]) [id number] Bilateral earache Bilateral Earache Problem 10/03 12:00:00 AM EST [facility] ([facility]) [id number] Bilateral earache Bilateral Earache Problem 10/03 12:00:00 AM EST [facility] ([facility]) [id number] Bilateral earache Bilateral Earache Problem 10/03 12:00:00 AM EST [facility] ([facility]) [id number] Bilateral earache Bilateral Earache Problem 10/03 12:00:00 AM EST [facility] ([facility]) [id number] Bilateral earache Bilateral Earache Problem 10/03 12:00:00 AM EST [facility] ([facility]) [id number] Bilateral earache Bilateral Earache Problem 10/03 12:00:00 AM EST [facility] ([facility]) [id number] Bilateral earache Bilateral Earache Problem 10/03 12:00:00 AM EST [facility] ([facility]) [id number] Bilateral earache Bilateral Earache Problem 10/03 12:00:00 AM EST [facility] ([facility]) [id number] Bilateral earache Bilateral Earache Problem 10/03 12:00:00 AM EST [facility] ([facility]) [id number] Bilateral earache Bilateral Earache Problem 10/03 12:00:00 AM EST JE[facility] ([facility]) [id number] Bilateral earache Bilateral Earache Problem 10/03 12:00:00 AM EST JE[facility] ([facility]) [id number] Paronychia of toe Paronychia of Toe Problem 09/01 12:00:00 AM EST JEFF ([facility]) [id number] Paronychia of toe Paronychia of Toe Problem 09/01 12:00:00 AM EST JEFF ([facility]) [id number] Paronychia of toe Paronychia of Toe Problem 09/01 12:00:00 AM EST EJFF ([facility]) [id number] Paronychia of toe Paronychia of Toe Problem 09/01 12:00:00 AM EST JEFF ([facility]) [id number] Paronychia of toe Paronychia of Toe Problem 09/01 12:00:00 AM EST JEFF ([facility]) [id number] Paronychia of toe Paronychia of Toe Problem 09/01 12:00:00 AM EST JEFF ([facility]) [id number] Paronychia of toe Paronychia of Toe Problem 09/01 12:00:00 AM EST JEFF ([facility]) [id number] Paronychia of toe Paronychia of Toe Problem 09/01 12:00:00 AM EST JEFF ([facility]) [id number] Paronychia of toe Paronychia of Toe Problem 09/01 12:00:00 AM EST JEFF ([facility]) [id number] Paronychia of toe Paronychia of Toe Problem 09/01 12:00:00 AM EST JEFF ([facility]) [id number] Paronychia of toe Paronychia of Toe Problem 09/01 12:00:00 AM EST JEFF ([facility]) [id number] Paronychia of toe Paronychia of Toe Problem 09/01 12:00:00 AM EST JEFF ([facility]) [id number] Paronychia of toe Paronychia of Toe Problem 09/01 12:00:00 AM EST JEFF ([facility]) [id number] Paronychia of toe Paronychia of Toe Problem 09/01 12:00:00 AM EST JEFF ([facility]) [id number] Paronychia of toe Paronychia of Toe Problem 09/01 12:00:00 AM EST JEFF ([facility]) F17.219 Nicotine dependence, cigaret mary, with unspecified nicotine-induced disorders Nicotine dependence, cigarettes, wunsp disorders Condition 08/17/2020 12:00:00 AM EST [facility] ([facility]) [id number] Type 2 diabetes mellitus without complic ation Type 2 Diabetes Mellitus without Complication Problem 08/10/2020 12:00:00 AM EDT JEFF ([facility]) [id number] Type 2 diabetes mellitus without complic ation Type 2 Diabetes Mellitus without Complication Problem 08/10/2020 12:00:00 AM EDT JEFF ([facility]) [id number] Type 2 diabetes mellitus without complic ation Type 2 Diabetes Mellitus without Complication Problem 08/10/2020 12:00:00 AM EDT JEFF ([facility]) [id number] Type 2 diabetes mellitus without complic ation Type 2 Diabetes Mellitus without Complication Problem 08/10/2020 12:00:00 AM EDT JEFF ([facility]) [id number] Type 2 diabetes mellitus without complic ation Type 2 Diabetes Mellitus without Complication Problem 08/10/2020 12:00:00 AM EDT JEFF ([facility]) [id number] Type 2 diabetes mellitus without complic ation Type 2 Diabetes Mellitus without Complication Problem 08/10/2020 12:00:00 AM EDT JEFF ([facility]) [id number] Type 2 diabetes mellitus without complic ation Type 2 Diabetes Mellitus without Complication Problem 08/10/2020 12:00:00 AM EDT JEFF ([facility]) [id number] Type 2 diabetes mellitus without complic ation Type 2 Diabetes Mellitus without Complication Problem 08/10/2020 12:00:00 AM EDT JEFF ([facility]) [id number] Type 2 diabetes mellitus without complic ation Type 2 Diabetes Mellitus without Complication Problem 08/10/2020 12:00:00 AM EDT JEFF ([facility]) [id number] Type 2 diabetes mellitus without complic ation Type 2 Diabetes Mellitus without Complication Problem 08/10/2020 12:00:00 AM EDT JEFF ([facility]) [id number] Type 2 diabetes mellitus without complic ation Type 2 Diabetes Mellitus without Complication Problem 08/10/2020 12:00:00 AM EDT JEFF ([facility]) [id number] Type 2 diabetes mellitus without complic ation Type 2 Diabetes Mellitus without Complication Problem 08/10/2020 12:00:00 AM EDT JEFF ([facility]) [id number] Type 2 diabetes mellitus without complic ation Type 2 Diabetes Mellitus without Complication Problem 08/10/2020 12:00:00 AM EDT JEFF ([facility]) [id number] Type 2 diabetes mellitus without complic ation Type 2 Diabetes Mellitus without Complication Problem 08/10/2020 12:00:00 AM EDT JEFF ([facility]) [id number] Type 2 diabetes mellitus without complic ation Type 2 Diabetes Mellitus without Complication Problem 08/10/2020 12:00:00 AM EDT JEFF ([facility]) [id number] Type 2 diabetes mellitus without complic ation Type 2 Diabetes Mellitus without Complication Problem 08/10/2020 12:00:00 AM EDT JEFF ([facility]) [id number] Type 2 diabetes mellitus without complic ation Type 2 Diabetes Mellitus without Complication Problem 08/10/2020 12:00:00 AM EDT JEFF ([facility]) [id number] Fitting procedure Fitting Procedure Problem 07/27 05:54:54 PM EDT JEFF ([facility]) [id number] Fitting procedure Fitting Procedure Problem 07/27 05:54:54 PM EDT JEFF ([facility]) [id number] Fitting procedure Fitting Procedure Problem 07/27 05:54:54 PM EDT JEFF ([facility]) [id number] Fitting procedure Fitting Procedure Problem 07/27 05:54:54 PM EDT JEFF ([facility]) [id number] Fitting procedure Fitting Procedure Problem 07/27 05:54:54 PM EDT JEFF ([facility]) [id number] Fitting procedure Fitting Procedure Problem 07/27 05:54:54 PM EDT JEFF ([facility]) [id number] Fitting procedure Fitting Procedure Problem 07/27 05:54:54 PM EDT JEFF ([facility]) [id number] Fitting procedure Fitting Procedure Problem 07/27 05:54:54 PM EDT JEFF ([facility]) [id number] Fitting procedure Fitting Procedure Problem 07/27 05:54:54 PM EDT JEFF ([facility]) [id number] Fitting procedure Fitting Procedure Problem 07/27 05:54:54 PM EDT JEFF ([facility]) [id number] Fitting procedure Fitting Procedure Problem 07/27 05:54:54 PM EDT JEFF ([facility]) [id number] Fitting procedure Fitting Procedure Problem 07/27 05:54:54 PM EDT JEFF ([facility]) [id number] Fitting procedure Fitting Procedure Problem 07/27 05:54:54 PM EDT JEFF ([facility]) [id number] Fitting procedure Fitting Procedure Problem 07/27 05:54:54 PM EDT JEFF ([facility]) [id number] Fitting procedure Fitting Procedure Problem 07/27 05:54:54 PM EDT JEFF ([facility]) [id number] Fitting procedure Fitting Procedure Problem 07/27 05:54:54 PM EDT JEFF ([facility]) [id number] Fitting procedure Fitting Procedure Problem 07/27 05:54:54 PM EDT JEFF ([facility]) [id number] Finding of esophagus Finding of Esophagus Problem 07/27/2020 05:54:53 PM EDT JEFF ([facility]) [id number] SNOMED CT Concept SNOMED CT Concept Problem 07/27 05:54:53 PM EDT JEFF ([facility]) 953967413 Asthma Asthma Problem 07/27/2020 05:54:53 PM ED T JEFF ([facility]) [id number] Depressive disorder Depressive Disorder Problem 1 05:54:53 PM EDT JEFF ([facility]) [id number] Viral hepatitis C Viral Hepatitis C Problem 07/27/2020 05:54:53 PM EDT JEFF ([facility]) [id number] Finding of esophagus Finding of Esophagus Problem 07/27/2020 05:54:53 PM EDT JEFF ([facility]) 929034028 SNOMED CT Concept SNOMED CT Concept Problem 07/27 05:54:53 PM EDT JEFF ([facility]) 628174907 Asthma Asthma Problem 07/27/2020 05:54:53 PM ED T JEFF ([facility]) [id number] Depressive disorder Depressive Disorder Problem 1 05:54:53 PM EDT JEFF ([facility]) [id number] Viral hepatitis C Viral Hepatitis C Problem 07/27/2020 05:54:53 PM EDT JEFF ([facility]) [id number] Finding of esophagus Finding of Esophagus Problem 07/27/2020 05:54:53 PM EDT JEFF ([facility]) 205841170 SNOMED CT Concept SNOMED CT Concept Problem 07/27 05:54:53 PM EDT JEFF ([facility]) 338897759 Asthma Asthma Problem 07/27/2020 05:54:53 PM ED T JEFF ([facility]) 40774052 Depressive disorder Depressive Disorder Problem 1 05:54:53 PM EDT JEFF ([facility]) [id number] Viral hepatitis C Viral Hepatitis C Problem 07/27/2020 05:54:53 PM EDT JEFF ([facility]) [id number] Finding of esophagus Finding of Esophagus Problem 07/27/2020 05:54:53 PM EDT JEFF ([facility]) 416362670 SNOMED CT Concept SNOMED CT Concept Problem 07/27 05:54:53 PM EDT JEFF ([facility]) 893694628 Asthma Asthma Problem 07/27/2020 05:54:53 PM ED T JEFF ([facility]) [id number] Depressive disorder Depressive Disorder Problem 1 05:54:53 PM EDT JEFF ([facility]) [id number] Viral hepatitis C Viral Hepatitis C Problem 07/27/2020 05:54:53 PM EDT JEFF ([facility]) 245576106 Finding of esophagus Finding of Esophagus Problem 07/27/2020 05:54:53 PM EDT JEFF ([facility]) 430577359 SNOMED CT Concept SNOMED CT Concept Problem 07/27 05:54:53 PM EDT JEFF ([facility]) 503935531 Asthma Asthma Problem 07/27/2020 05:54:53 PM ED T JEFF ([facility]) [id number] Depressive disorder Depressive Disorder Problem 1 05:54:53 PM EDT JEFF ([facility]) 10242049 Viral hepatitis C Viral Hepatitis C Problem 07/27/2020 05:54:53 PM EDT JEFF ([facility]) 437828179 Finding of esophagus Finding of Esophagus Problem 07/27/2020 05:54:53 PM EDT JEFF ([facility]) 979969007 SNOMED CT Concept SNOMED CT Concept Problem 07/27 05:54:53 PM EDT JEFF ([facility]) 622105957 Asthma Asthma Problem 07/27/2020 05:54:53 PM ED T JEFF ([facility]) 95619064 Depressive disorder Depressive Disorder Problem 1 05:54:53 PM EDT JEFF ([facility]) 74160866 Viral hepatitis C Viral Hepatitis C Problem 07/27/2020 05:54:53 PM EDT JEFF ([facility]) [id number] Finding of esophagus Finding of Esophagus Problem 07/27/2020 05:54:53 PM EDT JEFF ([facility]) 532555064 SNOMED CT Concept SNOMED CT Concept Problem 07/27 05:54:53 PM EDT JEFF ([facility]) 881646999 Asthma Asthma Problem 07/27/2020 05:54:53 PM ED T JEFF ([facility]) [id number] Depressive disorder Depressive Disorder Problem 1 05:54:53 PM EDT JEFF ([facility]) 60463247 Viral hepatitis C Viral Hepatitis C Problem 07/27/2020 05:54:53 PM EDT JEFF ([facility]) 821609457 Finding of esophagus Finding of Esophagus Problem 07/27/2020 05:54:53 PM EDT JEFF ([facility]) 345808825 SNOMED CT Concept SNOMED CT Concept Problem 07/27 05:54:53 PM EDT JEFF ([facility]) 772789443 Asthma Asthma Problem 07/27/2020 05:54:53 PM ED T JEFF ([facility]) 51992093 Depressive disorder Depressive Disorder Problem 1 05:54:53 PM EDT JEFF ([facility]) [id number] Viral hepatitis C Viral Hepatitis C Problem 07/27/2020 05:54:53 PM EDT JEFF ([facility]) 692605173 Finding of esophagus Finding of Esophagus Problem 07/27/2020 05:54:53 PM EDT JEFF ([facility]) 693439853 SNOMED CT Concept SNOMED CT Concept Problem 07/27 05:54:53 PM EDT JEFF ([facility]) 140002954 Asthma Asthma Problem 07/27/2020 05:54:53 PM ED T JEFF ([facility]) 90346736 Depressive disorder Depressive Disorder Problem 1 05:54:53 PM EDT JEFF ([facility]) 60191194 Viral hepatitis C Viral Hepatitis C Problem 07/27/2020 05:54:53 PM EDT JEFF ([facility]) [id number] Finding of esophagus Finding of Esophagus Problem 07/27/2020 05:54:53 PM EDT JEFF ([facility]) 258464384 SNOMED CT Concept SNOMED CT Concept Problem 07/27 05:54:53 PM EDT JEFF ([facility]) 320379311 Asthma Asthma Problem 07/27/2020 05:54:53 PM ED T JEFF ([facility]) [id number] Depressive disorder Depressive Disorder Problem 1 05:54:53 PM EDT JEFF ([facility]) 55653549 Viral hepatitis C Viral Hepatitis C Problem 07/27/2020 05:54:53 PM EDT JEFF ([facility]) 476370868 Finding of esophagus Finding of Esophagus Problem 07/27/2020 05:54:53 PM EDT JEFF ([facility]) 134647760 SNOMED CT Concept SNOMED CT Concept Problem 07/27 05:54:53 PM EDT JEFF ([facility]) 246826545 Asthma Asthma Problem 07/27/2020 05:54:53 PM ED T JEFF ([facility]) 72646520 Depressive disorder Depressive Disorder Problem 1 05:54:53 PM EDT JEFF ([facility]) 47290261 Viral hepatitis C Viral Hepatitis C Problem 07/27/2020 05:54:53 PM EDT JEFF ([facility]) 416301976 Finding of esophagus Finding of Esophagus Problem 07/27/2020 05:54:53 PM EDT JEFF ([facility]) 503160132 SNOMED CT Concept SNOMED CT Concept Problem 07/27 05:54:53 PM EDT JEFF ([facility]) 490402593 Asthma Asthma Problem 07/27/2020 05:54:53 PM ED T JEFF ([facility]) 69720672 Depressive disorder Depressive Disorder Problem 1 05:54:53 PM EDT JEFF ([facility]) 85773104 Viral hepatitis C Viral Hepatitis C Problem 07/27/2020 05:54:53 PM EDT JEFF ([facility]) 037585117 Finding of esophagus Finding of Esophagus Problem 07/27/2020 05:54:53 PM EDT JEFF ([facility]) 906879132 SNOMED CT Concept SNOMED CT Concept Problem 07/27 05:54:53 PM EDT JEFF ([facility]) 951156283 Asthma Asthma Problem 07/27/2020 05:54:53 PM ED T JEFF ([facility]) 45580441 Depressive disorder Depressive Disorder Problem 1 05:54:53 PM EDT JEFF ([facility]) [id number] Viral hepatitis C Viral Hepatitis C Problem 07/27/2020 05:54:53 PM EDT JEFF ([facility]) 718408019 Finding of esophagus Finding of Esophagus Problem 07/27/2020 05:54:53 PM EDT JEFF ([facility]) 847252273 SNOMED CT Concept SNOMED CT Concept Problem 07/27 05:54:53 PM EDT JEFF ([facility]) 366459742 Asthma Asthma Problem 07/27/2020 05:54:53 PM ED T JEFF ([facility]) 59970244 Depressive disorder Depressive Disorder Problem 1 05:54:53 PM EDT JEFF ([facility]) 88523942 Viral hepatitis C Viral Hepatitis C Problem 07/27/2020 05:54:53 PM EDT JEFF ([facility]) 26495727 Viral hepatitis C Viral Hepatitis C Problem 07/27/2020 05:54:53 PM EDT JEFF ([facility]) 729506693 Finding of esophagus Finding of Esophagus Problem 07/27/2020 05:54:53 PM EDT JEFF ([facility]) 446669774 SNOMED CT Concept SNOMED CT Concept Problem 07/27 05:54:53 PM EDT JEFF ([facility]) 491126618 Asthma Asthma Problem 07/27/2020 05:54:53 PM ED T JEFF ([facility]) 70508800 Depressive disorder Depressive Disorder Problem 1 05:54:53 PM EDT JEFF ([facility]) 02530953 Viral hepatitis C Viral Hepatitis C Problem 07/27/2020 05:54:53 PM EDT JEFF ([facility]) 586087235 Finding of esophagus Finding of Esophagus Problem 07/27/2020 05:54:53 PM EDT JEFF ([facility]) 480913834 SNOMED CT Concept SNOMED CT Concept Problem 07/27 05:54:53 PM EDT JEFF ([facility]) 435645148 Asthma Asthma Problem 07/27/2020 05:54:53 PM ED T JEFF ([facility]) 07915417 Depressive disorder Depressive Disorder Problem 1 05:54:53 PM EDT JEFF ([facility]) 79930430 Viral hepatitis C Viral Hepatitis C Problem 07/27/2020 05:54:53 PM EDT JEFF ([facility]) 605379366 Finding of esophagus Finding of Esophagus Problem 07/27/2020 05:54:53 PM EDT JEFF ([facility]) 500178750 SNOMED CT Concept SNOMED CT Concept Problem 07/27 05:54:53 PM EDT JEFF ([facility]) 972734561 Asthma Asthma Problem 07/27/2020 05:54:53 PM ED T JEFF ([facility]) 11779300 Depressive disorder Depressive Disorder Problem 1 05:54:53 PM EDT JEFF ([facility]) 849744957 Clinical finding Clinical Finding Problem 019 12:00:00 AM EST - 03/02/2021 12:00:00 AM EDT JEFF ([facility]) 104489420 Clinical finding Clinical Finding Problem 019 12:00:00 AM EST - 03/02/2021 12:00:00 AM EDT JEFF ([facility]) 956303905 Clinical finding Clinical Finding Problem 019 12:00:00 AM EST - 03/02/2021 12:00:00 AM EDT JEFF ([facility]) [id number] Clinical finding Clinical Finding Problem 019 12:00:00 AM EST - 03/02/2021 12:00:00 AM EDT JEFF ([facility]) [id number] Clinical finding Clinical Finding Problem 019 12:00:00 AM EST - 03/02/2021 12:00:00 AM EDT JEFF ([facility]) 907082893 Clinical finding Clinical Finding Problem 019 12:00:00 AM EST - 03/02/2021 12:00:00 AM EDT JEFF ([facility]) [id number] Clinical finding Clinical Finding Problem 019 12:00:00 AM EST - 03/02/2021 12:00:00 AM EDT JEFF ([facility]) 01201235 Acute maxillary sinusitis Acute Maxillary Sinusitis Pr oblem 04/28/2018 12:00:00 AM EDT - 03/02/2021 12:00:00 AM EDT JEFF ([facility]) 72717517 Acute maxillary sinusitis Acute Maxillary Sinusitis Pr oblem 04/28/2018 12:00:00 AM EDT - 03/02/2021 12:00:00 AM EDT JEFF ([facility]) 84205086 Acute maxillary sinusitis Acute Maxillary Sinusitis Pr oblem 04/28/2018 12:00:00 AM EDT - 03/02/2021 12:00:00 AM EDT JEFF ([facility]) 95644975 Acute maxillary sinusitis Acute Maxillary Sinusitis Pr oblem 04/28/2018 12:00:00 AM EDT - 03/02/2021 12:00:00 AM EDT JEFF ([facility]) 55793999 Acute maxillary sinusitis Acute Maxillary Sinusitis Pr oblem 04/28/2018 12:00:00 AM EDT - 03/02/2021 12:00:00 AM EDT JEFF ([facility]) 93885074 Acute maxillary sinusitis Acute Maxillary Sinusitis Pr oblem 04/28/2018 12:00:00 AM EDT - 03/02/2021 12:00:00 AM EDT JEFF ([facility]) 70642042 Acute maxillary sinusitis Acute Maxillary Sinusitis Pr oblem 04/28/2018 12:00:00 AM EDT - 03/02/2021 12:00:00 AM EDT JEFF ([facility]) 43916995 Abdominal pain Abdominal Pain Problem 06/15/2015 12:00:00 AM EDT - 03/02/2021 12:00:00 AM EDT JEFF ([facility]) 24344336 Abdominal pain Abdominal Pain Problem 06/15/2015 12:00:00 AM EDT - 03/02/2021 12:00:00 AM EDT JEFF ([facility]) 86460933 Abdominal pain Abdominal Pain Problem 06/15/2015 12:00:00 AM EDT - 03/02/2021 12:00:00 AM EDT JEFF ([facility]) 39332504 Abdominal pain Abdominal Pain Problem 06/15/2015 12:00:00 AM EDT - 03/02/2021 12:00:00 AM EDT JEFF ([facility]) 80075732 Abdominal pain Abdominal Pain Problem 06/15/2015 12:00:00 AM EDT - 03/02/2021 12:00:00 AM EDT JEFF ([facility]) 95672875 Abdominal pain Abdominal Pain Problem 06/15/2015 12:00:00 AM EDT - 03/02/2021 12:00:00 AM EDT JEFF ([facility]) 22796182 Abdominal pain Abdominal Pain Problem 06/15/2015 12:00:00 AM EDT - 03/02/2021 12:00:00 AM EDT JEFF ([facility]) 08887007 Pain Pain Problem 09/14/2012 12:0 0:00 AM EST - 03/02/2021 12:00:00 AM EDT JEFF ([facility]) 518352829 Clinical finding Clinical Finding Problem 012 12:00:00 AM EST - 03/02/2021 12:00:00 AM EDT JEFF ([facility]) 392041615 Chronic constipation Chronic Constipation Problem 09/14/2012 12:00:00 AM EST - 03/02/2021 12:00:00 AM EDT JEFF ([facility]) 471308683 Clinical finding Clinical Finding Problem 012 12:00:00 AM EST - 03/02/2021 12:00:00 AM EDT JEFF ([facility]) 910537771 Chronic constipation Chronic Constipation Problem 09/14/2012 12:00:00 AM EST - 03/02/2021 12:00:00 AM EDT JEFF ([facility]) 691287252 Clinical finding Clinical Finding Problem 012 12:00:00 AM EST - 03/02/2021 12:00:00 AM EDT JEFF ([facility]) 240099727 Chronic constipation Chronic Constipation Problem 09/14/2012 12:00:00 AM EST - 03/02/2021 12:00:00 AM EDT JEFF ([facility]) 604171945 Chronic constipation Chronic Constipation Problem 09/14/2012 12:00:00 AM EST - 03/02/2021 12:00:00 AM EDT JEFF ([facility]) [id number] Clinical finding Clinical Finding Problem 012 12:00:00 AM EST - 03/02/2021 12:00:00 AM EDT JEFF ([facility]) 376052248 Chronic constipation Chronic Constipation Problem 09/14/2012 12:00:00 AM EST - 03/02/2021 12:00:00 AM EDT JEFF ([facility]) 364424376 Clinical finding Clinical Finding Problem 012 12:00:00 AM EST - 03/02/2021 12:00:00 AM EDT JEFF ([facility]) 953973239 Chronic constipation Chronic Constipation Problem 09/14/2012 12:00:00 AM EST - 03/02/2021 12:00:00 AM EDT JEFF ([facility]) 139443510 Clinical finding Clinical Finding Problem 012 12:00:00 AM EST - 03/02/2021 12:00:00 AM EDT JEFF ([facility]) 173440063 Chronic constipation Chronic Constipation Problem 09/14/2012 12:00:00 AM EST - 03/02/2021 12:00:00 AM EDT JEFF ([facility]) Surgeries/Procedures Procedure Description Date Indications Data Source(s) Extended Individual Psychotherapy - 45 min 07/02/2021 12:00:00 AM EDT - 07/02/2021 12:00:00 AM EDT [facility] ([facility]) Extended Individual Psychotherapy - 45 min 12:00:00 AM EDT [facility] ([facility]) TEMPMHCTelemed 30" Psychotherapy 12:00:00 AM EDT - 06/14/2021 12:00:00 AM EDT [facility] ([facility]) TEMPMHCTelemed 30" Psychotherapy 06/14/2021 12:00:00 A M EDT [facility] ([facility]) Brief Individual Psychotherapy - 30 min 05/31/2021 12:00:00 AM EDT - 05/31/2021 12:00:00 AM EDT [facility] ([facility]) Brief Individual Psychotherapy - 30 min 05/31/2021 12: 00:00 AM EDT [facility] ([facility]) MHCTelemed E/M Lvl 5--Est pt 05/30/2021 12:00:00 AM EDT - 05/30/2021 12:00:00 AM EDT [facility] ([facility]) MHCTelemed E/M Lvl 5--Est pt 05/30/2021 12:00:00 AM ED T [facility] ([facility]) [id number]"Psychotherapy 12:00:00 AM EDT - 05/01/2021 12:00:00 AM EDT [facility] ([facility]) [id number]"Psychotherapy 05/01/2021 12:00:00 AM EDT [facility] ([facility]) Extended Individual Psychotherapy - 45 min 03/26/2021 12:00:00 AM EDT - 03/26/2021 12:00:00 AM EDT [facility] ([facility]) Extended Individual Psychotherapy - 45 min 12:00:00 AM EDT [facility] ([facility]) INCISION & DRAINAGE ABSCESS SIMPLE/SINGLE 03/06/2021 1 2:00:00 AM EDT [facility] ([facility] OFFICE OUTPATIENT VISIT 15 MINUTES 03/06/2021 12:00:00 AM EDT [facility] ([facility] Extended Individual Psychotherapy - 45 min 02/26/2021 12:00:00 AM EDT - 02/26/2021 12:00:00 AM EDT [facility] ([facility]) Extended Individual Psychotherapy - 45 min 12:00:00 AM EDT [facility] ([facility]) Brief Individual Psychotherapy - 30 min 02/07/2021 12:00:00 AM EDT - 02/07/2021 12:00:00 AM EDT [facility] ([facility]) Brief Individual Psychotherapy - 30 min 02/07/2021 12: 00:00 AM EDT [facility] ([facility]) [id number]"Psychotherapy 12:00:00 AM EDT - 01/18/2021 12:00:00 AM EDT [facility] ([facility]) [id number]"Psychotherapy 01/18/2021 12:00:00 AM EDT [facility] ([facility]) Extended Individual Psychotherapy - 45 min 12/28/2020 12:00:00 AM EDT - 12/28/2020 12:00:00 AM EDT [facility] ([facility]) Extended Individual Psychotherapy - 45 min 12:00:00 AM EDT [facility] ([facility]) MHC Telemed E/M Lvl 3--Est pt 12/11/2020 12:00:00 AM EST - 12/11/2020 12:00:00 AM EST [facility] ([facility]) Telemed A/O 30" 12/11/2020 12:00:00 AM EST [facility] ([facility]) MHC Telemed E/M Lvl 3--Est pt 12/11/2020 12:00:[address] [facility] ([facility]) Extended Individual Psychotherapy - 45 min 12/07/2020 12:00:00 AM EST - 12/07/2020 12:00:00 AM EST [facility] ([facility]) Extended Individual Psychotherapy - 45 min 12:00:00 AM EST [facility] ([facility]) TEMPMHCTelemed 30" Psychotherapy 021 12:00:00 AM EST - 11/07/2020 12:00:00 AM EST [facility] ([facility]) TEMPMHCTelemed 30" Psychotherapy 11/07/2020 12:00:00 A M EST [facility] ([facility]) OFFICE OUTPATIENT VISIT 15 MINUTES 10/25 12:00:00 AM EST - 10/25/2020 12:00:00 AM EST [facility] ([facility]) Psychotherapy ADD ON - 30 Minutes 10/25/2020 12:00:00 AM EST [facility] ([facility]) OFFICE OUTPATIENT VISIT 15 MINUTES 10/25/2020 12:00:00 AM EST [facility] ([facility]) Extended Individual Psychotherapy - 45 min 10/20/2020 12:00:00 AM EST - 10/20/2020 12:00:00 AM EST [facility] ([facility]) Extended Individual Psychotherapy - 45 min 12:00:00 AM EST [facility] ([facility]) Extended Individual Psychotherapy - 45 min 09/28/2020 12:00:00 AM EST - 09/28/2020 12:00:00 AM EST [facility] ([facility]) Extended Individual Psychotherapy - 45 min 0 12:00:00 AM EST [facility] ([facility]) INCISION & DRAINAGE ABSCESS SIMPLE/SINGLE 09/25/2020 1 2:00:00 AM EST [facility] ([facility] INCISION & DRAINAGE ABSCESS SIMPLE/SINGLE 09/25/2020 1 2:00:00 AM EST [facility] ([facility] OFFICE OUTPATIENT VISIT 15 MINUTES 09/21 12:00:00 AM EST - 09/21/2020 12:00:00 AM EST [facility] ([facility]) Psychotherapy ADD ON - 30 Minutes 09/21/2020 12:00:00 AM EST [facility] ([facility]) OFFICE OUTPATIENT VISIT 15 MINUTES 09/21/2020 12:00:00 AM EST [facility] ([facility]) Extended Individual Psychotherapy - 45 min 09/11/2020 12:00:00 AM EST - 09/11/2020 12:00:00 AM EST [facility] ([facility]) Extended Individual Psychotherapy - 45 min 0 12:00:00 AM EST [facility] ([facility]) OFFICE OUTPATIENT VISIT 15 MINUTES 08/24 12:00:00 AM EST - 08/24/2020 12:00:00 AM EST [facility] ([facility]) Psychotherapy ADD ON - 30 Minutes 08/24/2020 12:00:00 AM EST [facility] ([facility]) OFFICE OUTPATIENT VISIT 15 MINUTES 08/24/2020 12:00:00 AM EST [facility] ([facility]) Brief Individual Psychotherapy - 30 min 08/17/2020 12:00:00 AM EST - 08/17/2020 12:00:00 AM EST [facility] ([facility]) Brief Individual Psychotherapy - 30 min 08/17/2020 12: 00:00 AM EST [facility] ([facility]) MHC Telemed E/M Lvl 3--Est pt 07/25/2020 12:00:00 AM EDT - 07/25/2020 12:00:00 AM EDT [facility] ([facility]) Telemed A/O 30" 07/25/2020 12:00:00 AM EDT [facility] ([facility]) MHC Telemed E/M Lvl 3--Est pt 07/25/2020 12:00:00 AM E DT [facility] ([facility]) Brief Individual Psychotherapy - 30 min 07/20/2020 12:00:00 AM EDT - 07/20/2020 12:00:00 AM EDT [facility] ([facility]) Brief Individual Psychotherapy - 30 min 07/20/2020 12: 00:00 AM EDT [facility] ([facility]) TEMPMHCTelemed 30" Psychotherapy 12:00:00 AM EDT - 07/06/2020 12:00:00 AM EDT [facility] ([facility]) TEMPMHCTelemed 30" Psychotherapy 07/06/2020 12:00:00 A M EDT [facility] ([facility]) TEMPMHCTelemed 30" Psychotherapy 09/04/2 020 12:00:00 AM EDT - 06/16/2020 12:00:00 AM EDT [facility] ([facility]) TEMPMHCTelemed 30" Psychotherapy 06/16/2020 12:00:00 A M EDT [facility] ([facility]) Results ID Date Data Source [id number] 05/18/2021 08:31:00 PM EDT [facility]) Name Value Range Interpretation Code Description Data Becky rce(s) Supporting Document(s) lipase 195 U/L 73-393 Lipase [facility] ([facility]) ID Date Data Source [id number] 05/18/2021 08:31:00 PM EDT [facility] ([facility]) Name Value Range Interpretation Code Description Data Becky rce(s) Supporting Document(s) glucose, fasting 159 mg/dL 70-100 Above high normal Glucose, Fas ting [facility] ([facility]) glomerular filtration rate > 60.0 >60 Glomerula r Filtration Rate [place] ([facility]) creatinine for GFR 0.93 mg/dL 0.70-1.30 Creatinine for GF R [place] ([facility]) blood urea nitrogen 9 mg/dL 7-18 Blood Urea Nitro gen [place] ([facility]) potassium serum 3.9 mEq/L 3.5-5.1 Potassium Serum ATH NA ([facility]) sodium level 137 mEq/L 136-145 Sodium Level JEFF ([facility]) chloride level 104 mEq/L 98-107 Chloride Level [place] ([facility]) carbon dioxide level 28 mEq/L 21-32 Carbon Dioxide Level [place] ([facility]) calcium level 8.2 mg/dL 8.5-10.1 Below low normal Calcium Level AT [facility]) anion gap 5 mEq/L 8-16 Below low normal Anion Gap [facility] ( [facility]) ID Date Data Source [id number] 05/18/2021 08:31:00 PM EDT JEFF ([facility]) Name Value Range Interpretation Code Description Data Becky rce(s) Supporting Document(s) ALT/SGPT 36 U/L 12-78 ALT/SGPT JE[facility] ([facility]) AST/SGOT 19 U/L 7-37 AST/SGOT JEFF ([facility]) bilirubin,total 0.4 mg/dL 0.2-1.0 Bilirubin,total ATHE NA ([facility]) alkaline phosphatase 75 U/L 45-117 Alkaline Phosph atase JEFF ([facility]) bilirubin,direct 0.1 mg/dL 0.0-0.2 Bilirubin,direct AT [facility] ([facility]) albumin 3.6 gm/dL 3.2-5.2 Albumin JEFF ([facility]) total protein 7.0 gm/dL 6.4-8.2 Total Protein JEFF ( [facility]) albumin/globulin ratio Albumin/globu bianca Ratio JEFF ([facility]) ID Date Data Source [id number] 05/18/2021 08:31:00 PM EDT [facility] [...] % 8.4 % 2.0-8.0 Above high normal [place] % JEFF ([facility]) lymph % 23.9 % 24.0-44.0 Below low normal Lymph % JEFF ( [facility]) eos % 6.5 % 0.0-3.0 Above high normal Eos % [place] ([facility]) baso % 1.3 % 0.0-1.0 Above high normal Baso % [place] ([facility]) immature granulocyte % 2.1 % 0-3.0 Immature Gran ulocyte % [place] ([facility]) nucleated red blood cell % 0.0 % 0-0 Nucleated Red Blood Cell % [place] ([facility]) neutrophils # 3.7 10 1.5-8.5 Neutrophils # JEFF ( [facility]) lymph # 1.5 10 1.5-5.0 Lymph # [facility] ([facility]) mono # 0.5 10 0.0-0.8 Trigg # JEFF ([facility]) eos # 0.4 10 0.0-0.5 Eos # JEFF ([facility]) baso # 0.1 10 0.0-0.2 Baso # JEFF ([facility]) ID Date Data Source [id number] 05/18/2021 08:31:00 PM EDT [facility] ([facility]) Name Value Range Interpretation Code Description Data Becky rce(s) Supporting Document(s) lipase 195 U/L 73-393 Lipase [facility] ([facility]) ID Date Data Source [id number] 05/18/2021 08:31:00 PM EDT [facility] ([facility]) Name Value Range [...] potassium serum 3.9 mEq/L 3.5-5.1 Potassium Serum ATHE NA ([facility]) sodium level 137 mEq/L 136-145 Sodium Level JEFF ([facility]) chloride level 104 mEq/L 98-107 Chloride Level [place] ([facility]) carbon dioxide level 28 mEq/L 21-32 Carbon Dioxide Level [place] ([facility]) calcium level 8.2 mg/dL 8.5-10.1 Below low normal Calcium Level AT [facility]) anion gap 5 mEq/L 8-16 Below low normal Anion Gap [facility] ( [facility]) ID Date Data Source [id number] 05/18/2021 08:31:00 PM EDT [facility] ([facility]) Name Value Range Interpretation Code Description Data Becky rce(s) Supporting Document(s) AST/SGOT 19 U/L 7-37 AST/SGOT JEFF ([facility]) ALT/SGPT 36 U/L 12-78 ALT/SGPT [facility] ([facility]) bilirubin,total 0.4 mg/dL 0.2-1.0 Bilirubin,total ATHE ([facility]) alkaline phosphatase 75 U/L 45-117 Alkaline Phosph atase [place] ([facility]) bilirubin,direct 0.1 mg/dL 0.0-0.2 Bilirubin,direct AT [facility]) total protein 7.0 gm/dL 6.4-8.2 Total Protein [place] ( [facility]) albumin/globulin ratio Albumin/globu bianca Ratio JEFF ([facility]) albumin 3.6 gm/dL 3.2-5.2 Albumin JEFF ([facility]) ID Date Data Source [id number] 05/18/2021 08:31:00 PM EDT [facility] [...] % 8.4 % 2.0-8.0 Above high normal Trigg % JEFF ([facility]) eos [...] # 1.5 10 1.5-5.0 Lymph # JEFF ([facility]) mono # 0.5 10 0.0-0.8 Trigg # JEFF ([facility]) baso # 0.1 10 0.0-0.2 Baso # JEFF ([facility]) eos # 0.4 10 0.0-0.5 Eos # JEFF ([facility]) ID Date Data Source [id number] 03/27/2021 10:41:00 AM EDT [facility] ([facility]) Name Value Range Interpretation Code Description Data Becky rce(s) Supporting Document(s) Hemoglobin A1c/Hemoglobin.total in Blood 7.5 % Abnormal (applies to non- numeric results) Hba1C [place] ([facility]) ID Date Data Source [id number] 03/27/2021 10:41:00 AM EDT [facility]) Name Value Range Interpretation Code Description Data Becky rce(s) Supporting Document(s) Hemoglobin A1c/Hemoglobin.total in Blood 7.5 % Abnormal (applies to non- numeric results) Hba1C [place] ([facility]) ID Date Data Source [id number] 03/27/2021 10:41:00 AM EDT [facility]) Name Value Range Interpretation Code Description Data Becky rce(s) Supporting Document(s) Hemoglobin A1c/Hemoglobin.total in Blood 7.5 % Abnormal (applies to non- numeric results) Hba1C [facility] ([facility]) ID Date Data Source [id number] 03/22/2021 12:00:00 AM EDT JEFF ([facility]) Name Value Range Interpretation Code Description Data Becky rce(s) Supporting Document(s) Right Eye Incomplete - Unable to Capture Image Right Eye JEFF ([facility]) Left Eye Incomplete - Unable to Capture Image Left Eye JEFF ([facility]) Ophthalmology Consult Not Ordered - Unable to Complete Exam Ophthalmology Consult [facility] ([facility]) ID Date Data Source [id number] 03/22/2021 12:00:00 AM EDT JE[facility] ([facility]) Name Value Range Interpretation Code Description Data Becky rce(s) Supporting Document(s) Right Eye Incomplete - Unable to Capture Image Right Eye JEFF ([facility]) Ophthalmology Consult Not Ordered - Unable to Complete Exam Ophthalmology Consult [facility] ([facility]) Left Eye Incomplete - Unable to Capture Image Left Eye [place] ([facility]) ID Date Data Source [id number] 03/22/2021 12:00:00 AM EDT JE[facility] ([facility]) Name Value Range Interpretation Code Description Data Becky rce(s) Supporting Document(s) Right Eye Incomplete - Unable to Capture Image Right Eye JEFF ([facility]) Ophthalmology Consult Not Ordered - Unable to Complete Exam Ophthalmology Consult [facility] ([facility]) Left Eye Incomplete - Unable to Capture Image Left Eye [facility] ([facility]) ID Date Data Source [id number] 03/22/2021 12:00:00 AM EDT JEFF ([facility]) Name Value Range Interpretation Code Description Data Becky rce(s) Supporting Document(s) Left Eye Incomplete - Unable to Capture Image Left Eye JEFF ([facility]) Right Eye Incomplete - Unable to Capture Image Right Eye JEFF ([facility]) Ophthalmology Consult Not Ordered - Unable to Complete Exam Ophthalmology Consult [facility] ([facility]) ID Date Data Source [id number] 03/22/2021 12:00:00 AM EDT JEFF ([facility]) Name Value Range Interpretation Code Description Data Becky rce(s) Supporting Document(s) Right Eye Incomplete - Unable to Capture Image Right Eye JEFF ([facility]) Left Eye Incomplete - Unable to Capture Image Left Eye JEFF ([facility]) Ophthalmology Consult Not Ordered - Unable to Complete Exam Ophthalmology Consult [facility] ([facility]) ID Date Data Source [id number] 01/26/2021 03:20:00 AM EDT [facility] Name Value Range Interpretation Code Description Data Becky rce(s) Supporting Document(s) SARS-CoV-2 (COVID 19) NEGATIVE - SARS-CoV-2 (COVID19) [facility] This lab was ordered by [facility] a nd reported by [facility]. ID Date Data Source [id number] 11/15/2020 03:50:00 PM EST [facility] ([facility]) Name Value Range Interpretation Code Description Data Becky rce(s) Supporting Document(s) Hemoglobin A1c/Hemoglobin.total in Blood 7.6 [facility] ([facility]) Glucose [Mass/volume] in Serum or Plasma 128 [facility] ([facility]) ID Date Data Source [id number] 09/18/2020 09:39:00 AM EST [place] ([facility]) Name Value Range Interpretation Code Description Data Becky rce(s) Supporting Document(s) cholesterol level 211 mg/dL <200 Above high normal Cholesterol Level JEFF ([facility]) triglycerides level 677 mg/dL <150 Above high normal Triglycer ides Level JEFF ([facility]) non-HDL-C 179 mg/dL Non-hdl-c JEFF ([facility]) HDL cholesterol 32 mg/dL >40 Below low normal HDL Cholestero l JEFF ([facility]) cholesterol risk ratio <5 Above high normal Choles terol Risk Ratio [facility] ([facility]) ID Date Data Source [id number] 09/18/2020 09:39:00 AM EST [facility]) Name Value Range Interpretation Code Description [...] level 137 mEq/L 136-145 Sodium Level JEFF ([facility]) anion gap 5 mEq/L 8-16 Below low normal Anion Gap JEFF ( [facility]) carbon dioxide level 29 mEq/L 21-32 Carbon Dioxide Level JEFF ([facility]) calcium level 9.0 mg/dL 8.5-10.1 Calcium Level JEFF ( [facility]) ALT/SGPT 38 U/L 12-78 ALT/SGPT [facility] ([facility]) AST/SGOT 16 U/L 7-37 AST/SGOT JE[facility] ([facility]) total protein 7.6 gm/dL 6.4-8.2 Total Protein JEFF ( [facility]) alkaline phosphatase 82 U/L 45-117 Alkaline Phosph atase JEFF ([facility]) bilirubin,total 0.4 mg/dL 0.2-1.0 Bilirubin,total ATHE NA ([facility]) albumin/globulin ratio Albumin/globu bianca Ratio JEFF ([facility]) albumin 4.0 gm/dL 3.2-5.2 Albumin [facility] ([facility]) ID Date Data Source [id number] 09/18/2020 09:39:00 AM EST [facility]) non-HDL-C 179 mg/dL Non-hdl-c JEFF ([facility]) cholesterol risk ratio <5 Above high normal Choles terol Risk Ratio JEFF ([facility]) ID Date Data Source [id number] 09/18/2020 09:39:00 AM EST [facility] [...] level 137 mEq/L 136-145 Sodium Level JEFF ([facility]) potassium serum 4.1 mEq/L 3.5-5.1 Potassium Serum [...] Center) AST/SGOT 16 U/L 7-37 AST/SGOT JE[facility] ([facility]) ALT/SGPT 38 U/L 12-78 ALT/SGPT JEFF ([facility]) alkaline phosphatase 82 U/L 45-117 Alkaline Phosph atase JEFF ([facility]) total protein 7.6 gm/dL 6.4-8.2 Total Protein JEFF ( [facility]) bilirubin,total 0.4 mg/dL 0.2-1.0 Bilirubin,total ATHE NA ([facility]) albumin 4.0 gm/dL 3.2-5.2 Albumin JEFF ([facility]) albumin/globulin ratio Albumin/globu bianca Ratio JEFF ([facility]) ID Date Data Source [id number] 09/18/2020 09:39:00 AM EST JEFF ([facility]) Name Value Range Interpretation Code Description Data Becky rce(s) Supporting Document(s) triglycerides level 677 mg/dL <150 Above high normal Triglycer ides Level JEFF ([facility]) cholesterol level 211 mg/dL <200 Above high normal Cholesterol Level JEFF ([facility]) non-HDL-C 179 mg/dL Non-hdl-c JEFF ([facility]) HDL cholesterol 32 mg/dL >40 Below low normal HDL Cholestero l JEFF ([facility]) cholesterol risk ratio <5 Above high normal Choles terol Risk Ratio JEFF ([facility]) ID Date Data Source [id number] 09/18/2020 09:39:00 AM EST [facility] [...] level 137 mEq/L 136-145 Sodium Level JEFF ([facility]) carbon dioxide level 29 mEq/L 21-32 Carbon Dioxide Level JEFF ([facility]) chloride level 103 mEq/L 98-107 Chloride Level JEFF ([facility]) AST/SGOT 16 U/L 7-37 AST/SGOT JE[facility] ([facility]) calcium level 9.0 mg/dL 8.5-10.1 Calcium Level JEFF ( [facility]) anion gap 5 mEq/L 8-16 Below low normal Anion Gap JEFF ( [facility]) bilirubin,total 0.4 mg/dL 0.2-1.0 Bilirubin,total ATHE NA ([facility]) ALT/SGPT 38 U/L 12-78 ALT/SGPT JE[facility] ([facility]) alkaline phosphatase 82 U/L 45-117 Alkaline Phosph atase JEFF ([facility]) albumin/globulin ratio Albumin/globu bianca Ratio JEFF ([facility]) total protein 7.6 gm/dL 6.4-8.2 Total Protein JEFF ( [facility]) albumin 4.0 gm/dL 3.2-5.2 Albumin JEFF ([facility]) ID Date Data Source [id number] 09/18/2020 09:39:00 AM EST [facility]) non-HDL-C 179 mg/dL Non-hdl-c JEFF ([facility]) ID Date Data Source [id number] 09/18/2020 09:39:00 AM EST [facility] [...] level 137 mEq/L 136-145 Sodium Level JEFF ([facility]) glomerular filtration rate > 60.0 >60 Glomerula r Filtration Rate JEFF ([facility]) carbon dioxide level 29 mEq/L 21-32 Carbon Dioxide Level JEFF ([facility]) potassium serum 4.1 mEq/L 3.5-5.1 Potassium Serum ATHE ([facility]) chloride level 103 mEq/L 98-107 Chloride Level [place] ([facility]) anion gap 5 mEq/L 8-16 Below low normal Anion Gap JEFF ( [facility]) calcium level 9.0 mg/dL 8.5-10.1 Calcium Level JEFF ( [facility]) ALT/SGPT 38 U/L 12-78 ALT/SGPT JE[facility] ([facility]) AST/SGOT 16 U/L 7-37 AST/SGOT JEFF ([facility]) alkaline phosphatase 82 U/L 45-117 Alkaline Phosph atase JEFF ([facility]) bilirubin,total 0.4 mg/dL 0.2-1.0 Bilirubin,total ATHE ([facility]) albumin/globulin ratio Albumin/globu bianca Ratio JEFF ([facility]) total protein 7.6 gm/dL 6.4-8.2 Total Protein JEFF ( [facility]) albumin 4.0 gm/dL 3.2-5.2 Albumin JE[facility] ([facility]) ID Date Data Source [id number] 09/18/2020 09:39:00 AM EST [facility]) non-HDL-C 179 mg/dL Non-hdl-c JEFF ([facility]) cholesterol risk ratio <5 Above high normal Choles terol Risk Ratio JEFF ([facility]) ID Date Data Source [id number] 09/18/2020 09:39:00 AM EST [facility] [...] level 137 mEq/L 136-145 Sodium Level JEFF ([facility]) potassium serum 4.1 mEq/L 3.5-5.1 Potassium Serum ATHE NA ([facility]) carbon dioxide level 29 mEq/L 21-32 Carbon Dioxide Level JEFF ([facility]) anion gap 5 mEq/L 8-16 Below low normal Anion Gap JEFF ( [facility]) chloride level 103 mEq/L 98-107 Chloride Level JEFF ([facility]) ALT/SGPT 38 U/L 12-78 ALT/SGPT JEFF ([facility]) calcium level 9.0 mg/dL 8.5-10.1 Calcium Level JEFF ( [facility]) AST/SGOT 16 U/L 7-37 AST/SGOT JEFF ([facility]) total protein 7.6 gm/dL 6.4-8.2 Total Protein JEFF ( [facility]) alkaline phosphatase 82 U/L 45-117 Alkaline Phosph atase JEFF ([facility]) bilirubin,total 0.4 mg/dL 0.2-1.0 Bilirubin,total ATHE NA ([facility]) albumin 4.0 gm/dL 3.2-5.2 Albumin JEFF ([facility]) albumin/globulin ratio Albumin/globu bianca Ratio JEFF ([facility]) ID Date Data Source [id number] 09/18/2020 09:39:00 AM EST [facility]) non-HDL-C 179 mg/dL Non-hdl-c JEFF ([facility]) ID Date Data Source [id number] 09/18/2020 09:39:00 AM EST [facility] [...] level 137 mEq/L 136-145 Sodium Level JEFF ([facility]) potassium serum 4.1 mEq/L 3.5-5.1 Potassium Serum ATHE NA ([facility]) anion gap 5 mEq/L 8-16 Below low normal Anion Gap JEFF ( [facility]) chloride level 103 mEq/L 98-107 Chloride Level JEFF ([facility]) carbon dioxide level 29 mEq/L 21-32 Carbon Dioxide Level JEFF ([facility]) AST/SGOT 16 U/L 7-37 AST/SGOT JE[facility] ([facility]) calcium level 9.0 mg/dL 8.5-10.1 Calcium Level JEFF ( [facility]) ALT/SGPT 38 U/L 12-78 ALT/SGPT JEFF ([facility]) alkaline phosphatase 82 U/L 45-117 Alkaline Phosph atase JEFF ([facility]) bilirubin,total 0.4 mg/dL 0.2-1.0 Bilirubin,total ATHE ([facility]) albumin 4.0 gm/dL 3.2-5.2 Albumin JEFF ([facility]) total protein 7.6 gm/dL 6.4-8.2 Total Protein JEFF ( [facility]) albumin/globulin ratio Albumin/globu bianca Ratio JEFF ([facility]) ID Date Data Source [id number] 09/18/2020 09:39:00 AM EST [facility]) non-HDL-C 179 mg/dL Non-hdl-c JEFF ([facility]) cholesterol risk ratio <5 Above high normal Choles terol Risk Ratio JEFF ([facility]) ID Date Data Source [id number] 09/18/2020 09:39:00 AM EST [facility] [...] level 137 mEq/L 136-145 Sodium Level JEFF ([facility]) potassium serum 4.1 mEq/L 3.5-5.1 Potassium Serum [...] Center) ALT/SGPT 38 U/L 12-78 ALT/SGPT JE[facility] ([facility]) AST/SGOT 16 U/L 7-37 AST/SGOT JEFF ([facility]) albumin 4.0 gm/dL 3.2-5.2 Albumin JEFF ([facility]) total protein 7.6 gm/dL 6.4-8.2 Total Protein JEFF ( [facility]) bilirubin,total 0.4 mg/dL 0.2-1.0 Bilirubin,total ATHE NA ([facility]) albumin/globulin ratio Albumin/globu bianca Ratio JEFF ([facility]) ID Date Data Source [id number] 09/18/2020 09:39:00 AM EST [facility] ([facility] [facility] Name Value Range Interpretation Code Description Data Becky rce(s) Supporting Document(s) Glucose, Fasting 145 mg/dL 70-100 [facility] ([facility]) Blood Urea Nitrogen 19 mg/dL 7-18 [facility] ([facility]) Creatinine For GFR 1.20 mg/dL 0.70-1.30 [facility] ([facility]) Glomerular Filtration Rate Laboratory test result [facility] ([facility]) <content>Units are mL/min/1.73 m2</content>
<content></content>
<content>Chronic Kidney Disease Staging per NKF:</content>
<content></content>
<content>Stage I & II GFR >=60 Normal to Mildly Decreased</content>
<content>Stage III GFR 30- 59 Moderately Decreased</content>
<content>Stage IV GFR 15-29 Severely Decreased</content>
<content>Stage V GFR <15 Very Little GFR Left</content>
<content>ESRD GFR <15 on POLITICAL AIDE</content>
<content></content> Potassium Serum 4.1 meq/L 3.5-5.1 [facility] ([facility]) Sodium Level 137 meq/L 136-145 [facility] ([facility]) Carbon Dioxide Level 29 meq/L 21-32 [facility] ([facility]) Chloride Level 103 meq/L 98-107 [facility] ([facility]) Anion Gap 5 meq/L 8-16 [facility] ([facility]) Alt/SGPT 38 U/L 12-78 [facility] ([facility]) Ast/Sgot 16 U/L 7-37 [facility] ([facility]) Calcium Level 9.0 mg/dL 8.5-10.1 [facility] ([facility]) Bilirubin,Total 0.4 mg/dL 0.2-1.0 [facility] ([facility]) Alkaline Phosphatase 82 U/L 45-117 [facility] ([facility] Total Protein 7.6 GM/DL 6.4-8.2 [facility] ([facility]) Albumin 4.0 GM/DL 3.2-5.2 [facility] ([facility]) Albumin/Globulin Ratio 1.1 [facility] ([facility]) ID Date Data Source [id number] 09/18/2020 09:39:00 AM EST [facility] ([facility]) Name Value Range Interpretation Code Description Data Becky rce(s) Supporting Document(s) Triglycerides Level 677 mg/dL [facility] Cholesterol Level 211 mg/dL [facility] ([facility]) HDL Cholesterol 32 mg/dL [facility] ([facility]) Cholesterol Risk Ratio 6.593 [facility] ([facility]) Non-HDL-C 179 mg/dL [facility] ([facility]) ID Date Data Source [id number] 09/18/2020 09:39:00 AM EST JEFF ([facility]) Name Value Range Interpretation Code Description Data Becky rce(s) Supporting Document(s) cholesterol level 211 mg/dL <200 Above high normal Cholesterol Level JEFF ([facility]) triglycerides level 677 mg/dL <150 Above high normal Triglycer ides Level JEFF ([facility]) HDL cholesterol 32 mg/dL >40 Below low normal HDL Cholestero l [facility] ([facility]) cholesterol risk ratio <5 Above high normal Choles terol Risk Ratio [facility] ([facility]) non-HDL-C 179 mg/dL Non-hdl-c [facility] ([facility]) ID Date Data Source [id number] 09/18/2020 09:39:00 AM EST [facility] ([place] [facility] [...] level 137 mEq/L 136-145 Sodium Level JEFF ([facility]) chloride level 103 mEq/L 98-107 Chloride Level JEFF ([facility]) potassium serum 4.1 mEq/L 3.5-5.1 Potassium Serum ATH ([facility]) anion gap 5 mEq/L 8-16 Below low normal Anion Gap JEFF ( [facility]) carbon dioxide level 29 mEq/L 21-32 Carbon Dioxide Level JEFF ([facility]) calcium level 9.0 mg/dL 8.5-10.1 Calcium Level JEFF ( [facility]) AST/SGOT 16 U/L 7-37 AST/SGOT [facility] ([facility]) ALT/SGPT 38 U/L 12-78 ALT/SGPT [facility] ([facility]) bilirubin,total 0.4 mg/dL 0.2-1.0 Bilirubin,total ATHE ([facility]) alkaline phosphatase 82 U/L 45-117 Alkaline Phosph atase JEFF ([facility]) total protein 7.6 gm/dL 6.4-8.2 Total Protein JEFF ( [facility]) albumin/globulin ratio Albumin/globu bianca Ratio JEFF ([facility]) albumin 4.0 gm/dL 3.2-5.2 Albumin [facility] ([facility]) ID Date Data Source [id number] 09/18/2020 09:39:00 AM EST [facility] non-HDL-C 179 mg/dL Non-hdl-c [facility] ([facility]) ID Date Data Source [id number] 09/18/2020 09:39:00 AM EST [facility] ([place] [facility] [...] 137 mEq/L 136-145 Sodium Level JEFF ([facility]) glomerular filtration rate > 60.0 >60 Glomerula [...] Center) ALT/SGPT 38 U/L 12-78 ALT/SGPT [facility] ([facility]) AST/SGOT 16 U/L 7-37 AST/SGOT [facility] ([facility]) bilirubin,total 0.4 mg/dL 0.2-1.0 Bilirubin,total ATHE ([facility]) total protein 7.6 gm/dL 6.4-8.2 Total Protein JEFF ( [facility]) alkaline phosphatase 82 U/L 45-117 Alkaline Phosph atase JEFF ([facility]) albumin 4.0 gm/dL 3.2-5.2 Albumin JE[facility] ([facility]) albumin/globulin ratio Albumin/globu bianca Ratio JEFF ([facility]) ID Date Data Source [id number] 09/18/2020 09:39:00 AM EST JEFF ([facility]) Name Value Range Interpretation Code Description Data Becky rce(s) Supporting Document(s) triglycerides level 677 mg/dL <150 Above high normal Triglycer ides Level JEFF ([facility]) HDL cholesterol 32 mg/dL >40 Below low normal HDL Cholestero l JEFF ([facility]) non-HDL-C 179 mg/dL Non-hdl-c JE[facility] ([facility]) cholesterol level 211 mg/dL <200 Above high normal Cholesterol Level JEFF ([facility]) cholesterol risk ratio <5 Above high normal Choles terol Risk Ratio JEFF ([facility]) ID Date Data Source [id number] 09/18/2020 09:39:00 AM EST JEFF ([facility]) Name Value Range Interpretation Code Description Data Becky rce(s) Supporting Document(s) glucose, fasting 145 mg/dL 70-100 Above high normal Glucose, Fas ting JEFF ([facility]) blood urea nitrogen 19 mg/dL 7-18 Above high normal Blood Ure a Nitrogen JEFF ([facility]) sodium level 137 mEq/L 136-145 Sodium Level JEFF ([facility]) glomerular filtration rate > 60.0 >60 Glomerula [...] Center) ALT/SGPT 38 U/L 12-78 ALT/SGPT [facility] ([facility]) alkaline phosphatase 82 U/L 45-117 Alkaline Phosph atase JEFF ([facility]) bilirubin,total 0.4 mg/dL 0.2-1.0 Bilirubin,total ATHE [facility]) AST/SGOT 16 U/L 7-37 AST/SGOT [facility] ([facility]) albumin 4.0 gm/dL 3.2-5.2 Albumin JE[facility] ([facility]) total protein 7.6 gm/dL 6.4-8.2 Total Protein JEFF ( [facility]) albumin/globulin ratio Albumin/globu bianca Ratio JEFF ([facility]) ID Date Data Source [id number] 09/18/2020 09:39:00 AM EST [facility]) non-HDL-C 179 mg/dL Non-hdl-c JE[facility] ([facility]) cholesterol risk ratio <5 Above high normal Choles terol Risk Ratio JEFF ([facility]) ID Date Data Source [id number] 09/18/2020 09:39:00 AM EST [facility] ([place] [facility] [...] level 137 mEq/L 136-145 Sodium Level JEFF ([facility]) carbon dioxide level 29 mEq/L 21-32 Carbon Dioxide Level JEFF ([facility]) potassium serum 4.1 mEq/L 3.5-5.1 Potassium Serum ATHE NA ([facility]) chloride level 103 mEq/L 98-107 Chloride Level JEFF ([facility]) calcium level 9.0 mg/dL 8.5-10.1 Calcium Level JEFF ( [facility]) AST/SGOT 16 U/L 7-37 AST/SGOT [facility] ([facility]) anion gap 5 mEq/L 8-16 Below low normal Anion Gap JEFF ( [facility]) ALT/SGPT 38 U/L 12-78 ALT/SGPT [facility] ([facility]) alkaline phosphatase 82 U/L 45-117 Alkaline Phosph atase JEFF ([facility]) bilirubin,total 0.4 mg/dL 0.2-1.0 Bilirubin,total ATHE ([facility]) total protein 7.6 gm/dL 6.4-8.2 Total Protein JEFF ( [facility]) albumin/globulin ratio Albumin/globu bianca Ratio JEFF ([facility]) albumin 4.0 gm/dL 3.2-5.2 Albumin [facility] ([facility]) ID Date Data Source [id number] 09/18/2020 09:39:00 AM EST [facility]) non-HDL-C 179 mg/dL Non-hdl-c JE[facility] ([facility]) cholesterol risk ratio <5 Above high normal Choles terol Risk Ratio JEFF ([facility]) ID Date Data Source [id number] 09/18/2020 09:39:00 AM EST [facility] ([place] [facility] [...] level 137 mEq/L 136-145 Sodium Level JEFF ([facility]) chloride level 103 mEq/L 98-107 Chloride Level [...] Center) AST/SGOT 16 U/L 7-37 AST/SGOT [facility] ([facility]) ALT/SGPT 38 U/L 12-78 ALT/SGPT [facility] ([facility]) alkaline phosphatase 82 U/L 45-117 Alkaline Phosph atase JEFF ([facility]) total protein 7.6 gm/dL 6.4-8.2 Total Protein JEFF ( [facility]) bilirubin,total 0.4 mg/dL 0.2-1.0 Bilirubin,total ATHE ([facility]) albumin/globulin ratio Albumin/globu bianca Ratio JEFF ([facility]) albumin 4.0 gm/dL 3.2-5.2 Albumin [facility] ([facility]) ID Date Data Source [id number] 09/18/2020 09:39:00 AM EST [facility]) non-HDL-C 179 mg/dL Non-hdl-c JE[facility] ([facility]) HDL cholesterol 32 mg/dL >40 Below low normal HDL Cholestero l JEFF ([facility]) ID Date Data Source [id number] 09/18/2020 09:39:00 AM EST [facility] ([facility] [facility] [...] level 137 mEq/L 136-145 Sodium Level JEFF ([facility]) glomerular filtration rate > 60.0 >60 Glomerula r Filtration Rate JEFF ([facility]) carbon dioxide level 29 mEq/L 21-32 Carbon Dioxide Level JEFF ([facility]) chloride level 103 mEq/L 98-107 Chloride Level JEFF ([facility]) anion gap 5 mEq/L 8-16 Below low normal Anion Gap JEFF ( [facility]) ALT/SGPT 38 U/L 12-78 ALT/SGPT [facility] ([facility]) calcium level 9.0 mg/dL 8.5-10.1 Calcium Level JEFF ( [facility]) AST/SGOT 16 U/L 7-37 AST/SGOT [facility] ([facility]) alkaline phosphatase 82 U/L 45-117 Alkaline Phosph atase JEFF ([facility]) total protein 7.6 gm/dL 6.4-8.2 Total Protein JEFF ( [facility]) bilirubin,total 0.4 mg/dL 0.2-1.0 Bilirubin,total ATHE ([facility]) albumin/globulin ratio Albumin/globu bianca Ratio JEFF ([facility]) albumin 4.0 gm/dL 3.2-5.2 Albumin [facility] ([facility]) ID Date Data Source [id number] 09/18/2020 09:39:00 AM EST [facility]) non-HDL-C 179 mg/dL Non-hdl-c [facility] ([facility]) ID Date Data Source [id number] 09/18/2020 09:39:00 AM EST [facility] ([place] [facility] [...] 137 mEq/L 136-145 Sodium Level JEFF ([facility]) potassium serum 4.1 mEq/L 3.5-5.1 Potassium Serum [...] Center) AST/SGOT 16 U/L 7-37 AST/SGOT [facility] ([facility]) ALT/SGPT 38 U/L 12-78 ALT/SGPT [facility] ([facility]) total protein 7.6 gm/dL 6.4-8.2 Total Protein JEFF ( [facility]) bilirubin,total 0.4 mg/dL 0.2-1.0 Bilirubin,total ATHE [facility]) alkaline phosphatase 82 U/L 45-117 Alkaline Phosph atase JEFF ([facility]) albumin/globulin ratio Albumin/globu bianca Ratio JEFF ([facility]) albumin 4.0 gm/dL 3.2-5.2 Albumin [facility] ([facility]) ID Date Data Source [id number] 08/17/2020 03:43:00 PM EST [facility] Name Value Range Interpretation Code Description Data Becky rce(s) Supporting Document(s) Hemoglobin A1c/Hemoglobin.total in Blood 8.8 [facility] ([facility] Glucose [Mass/volume] in Serum or Plasma 277 [facility] ([facility]) ID Date Data Source [id number] 08/09/2020 02:13:00 PM EDT [facility] ([facility]) Name Value Range Interpretation Code Description Data Becky rce(s) Supporting Document(s) color, urine yellow yellow Color, Urine JEFF ([facility]) appearance, urine clear clear Appearance, Urine JEFF [...] specific gravity urine auto 1.002-1.035 Specifi c [place] Urine Auto JEFF ([facility]) [facility] ID Date Data Source [id number] 08/09/2020 02:13:00 PM EDT JEFF ([facility]) Name Value Range Interpretation Code Description Data Becky rce(s) Supporting Document(s) appearance, urine clear clear Appearance, Urine JEFF ([facility]) color, urine yellow yellow Color, Urine JEFF ([facility]) pH,urine 5.0 units 5.0-9.0 pH,urine JEFF ([facility]) protein, urine auto negative negative Protein, Urine A uto JEFF ([facility]) specific gravity urine auto 1.002-1.035 Specifi c [place] Urine Auto JEFF ([facility]) [...] 0-6 Squam ous Epithelial Cell Ur AU JFEF ([facility]) ID Date Data Source [id number] 08/09/2020 02:13:00 PM EDT JEFF ([facility]) Name Value Range Interpretation Code Description Data Becky rce(s) Supporting Document(s) appearance, urine clear clear Appearance, Urine JEFF ([facility]) pH,urine 5.0 units 5.0-9.0 pH,urine JEFF ([facility]) color, urine yellow yellow Color, Urine JEFF ([facility]) specific gravity urine auto 1.002-1.035 Specifi c [place] Urine Auto JEFF ([facility]) [facility] ID Date Data Source [id number] 08/09/2020 02:13:00 PM EDT JEFF ([facility]) Name Value Range Interpretation Code Description Data Becky rce(s) Supporting Document(s) appearance, urine clear clear Appearance, Urine JEFF ([facility]) color, urine yellow yellow Color, Urine JEFF ([facility]) glucose, urine (UA) auto 3+ negative Above high normal Gluc ose, Urine (UA) Auto JEFF ([facility]) specific gravity urine auto 1.002-1.035 Specifi c [place] Urine Auto JEFF ([facility]) [facility] ID Date Data Source [id number] 08/09/2020 02:13:00 PM EDT JEFF ([facility]) Name Value Range Interpretation Code Description Data Becky rce(s) Supporting Document(s) pH,urine 5.0 units 5.0-9.0 pH,urine JEFF ([facility]) specific gravity urine auto 1.002-1.035 Specifi c [place] Urine Auto JEFF ([facility]) appearance, urine clear clear Appearance, Urine JEFF ([facility]) color, urine yellow yellow Color, Urine JEFF ([facility]) protein, urine auto negative negative Protein, Urine A uto JEFF ([facility]) ketone, urine auto negative negative Ketone, Urine Aut o JEFF ([facility]) urobilinogen, urine auto 0.2 mg/dL 0.0-2.0 Urobilinoge n, Urine Auto JEFF ([facility]) glucose, urine (UA) auto 3+ negative Above high normal Gluc ose, Urine (UA) Auto JFEF ([facility]) blood, urine blood [facility] ID Date Data Source [id number] 08/09/2020 02:13:00 PM EDT JEFF ([facility]) Name Value Range Interpretation Code Description Data Becky rce(s) Supporting Document(s) appearance, urine clear clear Appearance, Urine JEFF ([facility]) specific gravity urine auto 1.002-1.035 Specifi c [place] Urine Auto JEFF ([facility]) pH,urine 5.0 units 5.0-9.0 pH,urine JEFF ([facility]) color, urine yellow yellow Color, Urine JEFF ([facility]) protein, urine auto negative negative Protein, [...] [facility]) ID Date Data Source [id number] 08/09/2020 02:13:00 PM EDT JEFF ([facility]) Name Value Range Interpretation Code Description Data Becky rce(s) Supporting Document(s) color, urine yellow yellow Color, Urine JEFF ([facility]) appearance, urine clear clear Appearance, Urine JEFF ([facility]) protein, urine auto negative negative Protein, Urine A cao JEFF ([facility]) pH,urine 5.0 units 5.0-9.0 pH,urine JEFF ([facility]) glucose, urine (UA) auto 3+ negative Above high normal Gluc ose, Urine (UA) Auto JEFF ([facility]) specific gravity urine auto 1.002-1.035 Specifi c [place] Urine Auto JEFF ([facility]) [facility] ID Date Data Source [id number] 08/09/2020 02:13:00 PM EDT JEFF ([facility]) Name Value Range Interpretation Code Description Data Becky rce(s) Supporting Document(s) pH,urine 5.0 units 5.0-9.0 pH,urine JEFF ([facility]) specific gravity urine auto 1.002-1.035 Specifi c [place] Urine Auto JEFF ([facility]) color, urine yellow yellow Color, Urine JEFF ([facility]) appearance, urine clear clear Appearance, Urine [facility] ID Date Data Source [id number] 08/09/2020 02:13:00 PM EDT JEFF ([facility]) Name Value Range Interpretation Code Description Data Becky rce(s) Supporting Document(s) pH,urine 5.0 units 5.0-9.0 pH,urine JEFF ([facility]) appearance, urine clear clear Appearance, Urine JEFF ([facility]) color, urine yellow yellow Color, Urine JEFF ([facility]) specific gravity urine auto 1.002-1.035 Specifi c [place] Urine Auto JEFF ([facility]) [facility] ID Date Data Source [id number] 08/09/2020 02:13:00 PM EDT JEFF ([facility]) Name Value Range Interpretation Code Description Data Becky rce(s) Supporting Document(s) color, urine yellow yellow Color, Urine JEFF ([facility]) appearance, urine clear clear Appearance, Urine JEFF ([facility]) pH,urine 5.0 units 5.0-9.0 pH,urine JEFF ([facility]) protein, urine auto negative negative Protein, Urine A cao JEFF ([facility]) specific gravity urine auto 1.002-1.035 Specifi c [place] Urine Auto JEFF ([facility]) [...] blood negative negative Blood, Urine Bloo d JFEF ([facility]) bilirubin, urine auto [...] [facility]) ID Date Data Source [id number] 08/09/2020 02:13:00 PM EDT JEFF ([facility]) Name Value Range Interpretation Code Description Data Becky rce(s) Supporting Document(s) specific gravity urine auto 1.002-1.035 Specifi c [place] Urine Auto JEFF ([facility]) pH,urine 5.0 units 5.0-9.0 pH,urine JEFF ([facility]) appearance, urine clear clear Appearance, Urine JEFF ([facility]) color, urine yellow yellow Color, Urine JEFF ([facility]) bilirubin, urine auto negative negative Bilirubin, Uri [...] [facility]) ID Date Data Source [id number] 08/09/2020 02:13:00 PM EDT JEFF ([facility]) Name Value Range Interpretation Code Description Data Becky rce(s) Supporting Document(s) color, urine yellow yellow Color, Urine JEFF ([facility]) specific gravity urine auto 1.002-1.035 Specifi c [place] Urine Auto JEFF ([facility]) [...] [facility]) ID Date Data Source [id number] 08/09/2020 02:13:00 PM EDT JEFF ([facility]) Name Value Range Interpretation Code Description Data Becky rce(s) Supporting Document(s) pH,urine 5.0 units 5.0-9.0 pH,urine JEFF ([facility]) appearance, urine clear clear Appearance, Urine JEFF ([facility]) color, urine yellow yellow Color, Urine JEFF ([facility]) specific gravity urine auto 1.002-1.035 Specifi c [place] Urine Auto JEFF ([facility]) [...] [facility]) ID Date Data Source [id number] 08/09/2020 02:13:00 PM EDT JEFF ([facility]) Name Value Range Interpretation Code Description Data Becky rce(s) Supporting Document(s) appearance, urine clear clear Appearance, Urine JEFF ([facility]) color, urine yellow yellow Color, Urine JEFF ([facility]) specific gravity urine auto 1.002-1.035 Specifi c [place] Urine Auto JEFF ([facility]) [...] [facility]) ID Date Data Source [id number] 08/09/2020 02:13:00 PM EDT JEFF ([facility]) Name Value Range Interpretation Code Description Data Becky rce(s) Supporting Document(s) appearance, urine clear clear Appearance, Urine JEFF ([facility]) color, urine yellow yellow Color, Urine JEFF ([facility]) protein, urine auto negative negative Protein, Urine A uto JEFF ([facility]) pH,urine 5.0 units 5.0-9.0 pH,urine JEFF ([facility]) specific gravity urine auto 1.002-1.035 Specifi c [place] Urine Auto JEFF ([facility]) [...] [facility]) ID Date Data Source [id number] 08/09/2020 02:13:00 PM EDT JEFF ([facility]) Name Value Range Interpretation Code Description Data Becky rce(s) Supporting Document(s) appearance, urine clear clear Appearance, Urine JEFF ([facility]) pH,urine 5.0 units 5.0-9.0 pH,urine JEFF ([facility]) specific gravity urine auto 1.002-1.035 Specifi c [place] Urine Auto JEFF ([facility]) color, urine yellow yellow Color, Urine JEFF ([facility]) urobilinogen, urine auto 0.2 mg/dL 0.0-2.0 Urobilinoge [...] [facility]) ID Date Data Source [id number] 08/09/2020 02:13:00 PM EDT JEFF ([facility]) Name Value Range Interpretation Code Description Data Becky rce(s) Supporting Document(s) appearance, urine clear clear Appearance, Urine JEFF ([facility]) color, urine yellow yellow Color, Urine JEFF ([facility]) pH,urine 5.0 units 5.0-9.0 pH,urine JEFF ([facility]) protein, urine auto negative negative Protein, Urine A uto JEFF ([facility]) ketone, urine auto negative negative Ketone, Urine Aut o JEFF ([facility]) specific gravity urine auto 1.002-1.035 Specifi c [place] Urine Auto JEFF ([facility]) [...] [facility]) ID Date Data Source [id number] 08/09/2020 12:40:00 PM EDT [place] ([facility]) Name Value Range Interpretation Code Description Data Becky rce(s) Supporting Document(s) Hemoglobin A1c/Hemoglobin.total in Blood 8.6 % Hemoglobin a1C [place] ([facility]) estimated average glucose 200 mg/dL 60-110 Above high norm al Estimated Average Glucose [facility]) ID Date Data Source [id number] 08/09/2020 12:40:00 PM EDT [facility]) Name Value Range Interpretation Code Description Data Becky rce(s) Supporting Document(s) acetone/ketone 1.22 mg/dL <2.81 Acetone/ketone JEFF ([facility]) ID Date Data Source [id number] 08/09/2020 12:40:00 PM EDT [facility] ID Date Data Source [id number] 08/09/2020 12:40:00 PM EDT JEFF ([facility]) Name Value Range Interpretation Code Description Data Becky rce(s) Supporting Document(s) AST/SGOT 24 U/L 7-37 AST/SGOT JE[facility] ([facility]) alkaline phosphatase 101 U/L 45-117 Alkaline Phosph atase JEFF ([facility]) ALT/SGPT 39 U/L 12-78 ALT/SGPT JEFF ([facility]) bilirubin,total 0.4 mg/dL 0.2-1.0 Bilirubin,total ATHE ([facility]) total protein 7.6 gm/dL 6.4-8.2 Total Protein JEFF ( [facility]) bilirubin,direct 0.1 mg/dL 0.0-0.2 Bilirubin,direct AT [facility] ([facility]) albumin/globulin ratio Albumin/globu bianca Ratio JEFF ([facility]) albumin 3.9 gm/dL 3.2-5.2 Albumin JEFF ([facility]) ID Date Data Source [id number] 08/09/2020 12:40:00 PM EDT [facility] % 7.6 % 0.0-5.0 Above high normal [place] % JEFF ([facility]) eos % 5.8 % 0.0-3.0 Above high normal Eos % JEFF ([facility]) neutrophils # 4.5 10 1.5-8.5 Neutrophils # JEFF ( [facility]) baso % 1.0 % 0.0-1.0 Baso % JEFF ([facility]) immature granulocyte % 1.8 % 0-3.0 Immature Gran ulocyte % JEFF ([facility]) nucleated red blood cell % 0.0 % 0-0 Nucleated Red Blood Cell % JEFF ([facility]) lymph # 1.7 10 1.5-5.0 Lymph # JEFF ([facility]) eos # 0.4 10 0.0-0.5 Eos # JEFF ([facility]) mono # 0.6 10 0.0-0.8 Trigg # JEFF ([facility]) baso # 0.1 10 0.0-0.2 Baso # JEFF ([facility]) ID Date Data Source [id number] 08/09/2020 12:40:00 PM EDT [place] ([facility]) Name Value Range [...] Above high normal Venous O 2 Saturation [facility] ([facility]) ID Date Data Source [id number] 08/09/2020 12:40:00 PM EDT [place] ([facility]) Name Value Range Interpretation Code Description Data Becky rce(s) Supporting Document(s) estimated average glucose 200 mg/dL 60-110 Above high norm al Estimated Average Glucose [place] ([facility]) Hemoglobin A1c/Hemoglobin.total in Blood 8.6 % Hemoglobin a1C [facility] ([facility]) ID Date Data Source [id number] 08/09/2020 12:40:00 PM EDT [place] ([facility]) Name Value Range Interpretation Code Description Data Becky rce(s) Supporting Document(s) acetone/ketone 1.22 mg/dL <2.81 Acetone/ketone [place] ([facility]) ID Date Data Source [id number] 08/09/2020 12:40:00 PM EDT [place] ([facility]) Name Value Range [...] chloride level 101 mEq/L 98-107 Chloride Level [facility] ([facility]) anion gap 6 mEq/L 8-16 Below low normal Anion Gap JEFF ( [facility]) carbon dioxide level 28 mEq/L 21-32 Carbon Dioxide Level JEFF ([facility]) calcium level 9.7 mg/dL 8.5-10.1 Calcium Level JEFF ( [facility]) ID Date Data Source [id number] 08/09/2020 12:40:00 PM EDT JEFF ([facility]) Name Value Range Interpretation Code Description Data Becky rce(s) Supporting Document(s) AST/SGOT 24 U/L 7-37 AST/SGOT [facility] ([facility]) ALT/SGPT 39 U/L 12-78 ALT/SGPT JEFF ([facility]) bilirubin,total 0.4 mg/dL 0.2-1.0 Bilirubin,total ATHE NA [...] Center) albumin 3.9 gm/dL 3.2-5.2 Albumin JEFF ([facility]) ID Date Data Source [id number] 08/09/2020 12:40:00 PM EDT [facility] [...] % 24.0-44.0 Below low normal Lymph % [place] ( [facility]) neutrophils % 60.8 % 36.0-66.0 Neutrophils % [place] ( [facility]) mono % 7.6 % 0.0-5.0 Above high normal [place] % [place] ([facility]) eos % 5.8 % 0.0-3.0 Above high normal Eos % [place] ([facility]) immature granulocyte % 1.8 % 0-3.0 Immature Gran ulocyte % JEFF ([facility]) baso % 1.0 % 0.0-1.0 Baso % [place] ([facility]) nucleated red blood cell % 0.0 % 0-0 Nucleated Red Blood Cell % [place] ([facility]) neutrophils # 4.5 10 1.5-8.5 Neutrophils # JEFF ( [facility]) lymph # 1.7 10 1.5-5.0 Lymph # JEFF ([facility]) mono # 0.6 10 0.0-0.8 Trigg # JEFF ([facility]) baso # 0.1 10 0.0-0.2 Baso # JE[facility] ([facility]) eos # 0.4 10 0.0-0.5 Eos # JEFF ([facility]) ID Date Data Source [id number] 08/09/2020 12:40:00 PM EDT [place] ([facility]) Name Value Range [...] Above high normal Venous O 2 Saturation [place] ([facility]) venous base excess -2.0-2.0 Below low normal Venous Base Excess [place] ([facility]) venous standard HCO3 20.7 mEq/L Venous Standard HCO3 [place] ([facility]) ID Date Data Source [id number] 08/09/2020 12:40:00 PM EDT [place] ([facility]) Name Value Range Interpretation Code Description Data Becky rce(s) Supporting Document(s) Hemoglobin A1c/Hemoglobin.total in Blood 8.6 % Hemoglobin a1C [place] ([facility]) estimated average glucose 200 mg/dL 60-110 Above high norm al Estimated Average Glucose [facility]) ID Date Data Source [id number] 08/09/2020 12:40:00 PM EDT [place] ([facility]) Name Value Range Interpretation Code Description Data Becky rce(s) Supporting Document(s) acetone/ketone 1.22 mg/dL <2.81 Acetone/ketone [facility]) ID Date Data Source [id number] 08/09/2020 12:40:00 PM EDT [place] ([facility]) Name Value Range [...] level 28 mEq/L 21-32 Carbon Dioxide Level [place] ([facility]) calcium level 9.7 mg/dL 8.5-10.1 Calcium Level [place] ( [facility]) ID Date Data Source [id number] 08/09/2020 12:40:00 PM EDT [place] ([facility]) Name Value Range Interpretation Code Description Data Becky rce(s) Supporting Document(s) ALT/SGPT 39 U/L 12-78 ALT/SGPT JE[facility] ([facility]) alkaline phosphatase 101 U/L 45-117 Alkaline Phosph atase JEFF ([facility]) AST/SGOT 24 U/L 7-37 AST/SGOT JE[facility] ([facility]) bilirubin,total 0.4 mg/dL 0.2-1.0 Bilirubin,total AT[facility] ([facility]) bilirubin,direct 0.1 mg/dL 0.0-0.2 Bilirubin,direct AT [facility] ([facility]) albumin 3.9 gm/dL 3.2-5.2 Albumin JEFF ([facility]) total protein 7.6 gm/dL 6.4-8.2 Total Protein JEFF ( [facility]) albumin/globulin ratio Albumin/globu bianca Ratio JEFF ([facility]) ID Date Data Source [id number] 08/09/2020 12:40:00 PM EDT [place] ([facility]) Name Value Range [...] g/dL 32.0-36.5 Mean Corpu scular HGB Conc [place] ([facility]) red cell distribution width 12.5 % 11.5-14.5 Red Cell Distribution Width JEFF ([facility]) lymph % 23.0 % 24.0-44.0 Below low normal Lymph % [place] ( [facility]) neutrophils % 60.8 % 36.0-66.0 Neutrophils % [place] ( [facility]) platelet count, automated 186 10 150-450 Platelet C ount, Automated JEFF ([facility]) eos % 5.8 % 0.0-3.0 Above high normal Eos % JEFF ([facility]) baso % 1.0 % 0.0-1.0 Baso % JE[facility] ([facility]) mono % 7.6 % 0.0-5.0 Above high normal [place] % JEFF ([facility]) neutrophils # 4.5 10 1.5-8.5 Neutrophils # [place] ( [facility]) nucleated red blood cell % 0.0 % 0-0 Nucleated Red Blood Cell % JEFF ([facility]) immature granulocyte % 1.8 % 0-3.0 Immature Gran ulocyte % JEFF ([facility]) eos # 0.4 10 0.0-0.5 Eos # JEFF ([facility]) lymph # 1.7 10 1.5-5.0 Lymph # JE[facility] ([facility]) mono # 0.6 10 0.0-0.8 Trigg # JEFF ([facility]) baso # 0.1 10 0.0-0.2 Baso # JEFF ([facility]) ID Date Data Source [id number] 08/09/2020 12:40:00 PM EDT [place] ([facility]) Name Value Range [...] -2.0-2.0 Below low normal Venous Base Excess [place] ([facility]) ID Date Data Source [id number] 08/09/2020 12:40:00 PM EDT [place] ([facility]) Name Value Range Interpretation Code Description Data Becky rce(s) Supporting Document(s) Hemoglobin A1c/Hemoglobin.total in Blood 8.6 % Hemoglobin a1C [place] ([facility]) estimated average glucose 200 mg/dL 60-110 Above high norm al Estimated Average Glucose JEFF ([facility]) ID Date Data Source [id number] 08/09/2020 12:40:00 PM EDT JEFF ([facility]) Name Value Range Interpretation Code Description Data Becky rce(s) Supporting Document(s) acetone/ketone 1.22 mg/dL <2.81 Acetone/ketone [facility] ([facility]) ID Date Data Source [id number] 08/09/2020 12:40:00 PM EDT [facility] Gap [facility] ( [facility]) ID Date Data Source [id number] 08/09/2020 12:40:00 PM EDT [place] ([facility]) Name Value Range Interpretation Code Description Data Becky rce(s) Supporting Document(s) AST/SGOT 24 U/L 7-37 AST/SGOT [facility] ([facility]) ALT/SGPT 39 U/L 12-78 ALT/SGPT [facility] ([facility]) alkaline phosphatase 101 U/L 45-117 Alkaline Phosph atase JEFF ([facility]) bilirubin,total 0.4 mg/dL 0.2-1.0 Bilirubin,total ATHE NA ([facility]) total protein 7.6 gm/dL 6.4-8.2 Total Protein JEFF ( [facility]) bilirubin,direct 0.1 mg/dL 0.0-0.2 Bilirubin,direct AT [facility] ([facility]) albumin 3.9 gm/dL 3.2-5.2 Albumin JEFF ([facility]) albumin/globulin ratio Albumin/globu bianca Ratio JEFF ([facility]) ID Date Data Source [id number] 08/09/2020 12:40:00 PM EDT [facility] [...] % 7.6 % 0.0-5.0 Above high normal [place] % JEFF ([facility]) neutrophils [...] % 1.0 % 0.0-1.0 Baso % JE[facility] ([facility]) immature granulocyte % 1.8 % 0-3.0 Immature Gran ulocyte % JEFF ([facility]) neutrophils # 4.5 10 1.5-8.5 Neutrophils # JEFF ( [facility]) nucleated red blood cell % 0.0 % 0-0 Nucleated Red Blood Cell % JEFF ([facility]) lymph # 1.7 10 1.5-5.0 Lymph # JE[facility] ([facility]) baso # 0.1 10 0.0-0.2 Baso # [facility] ([facility]) mono # 0.6 10 0.0-0.8 Trigg # JE[facility] ([facility]) eos # 0.4 10 0.0-0.5 Eos # [facility] ([facility]) ID Date Data Source [id number] 08/09/2020 12:40:00 PM EDT [place] ([facility]) Name Value Range Interpretation Code Description Data Becky rce(s) Supporting Document(s) venous pH 7.320 units 7.330-7.430 Below low normal Venous pH JEFF ([facility]) venous partial pressure CO2 42.6 mmHg 38.0-50.0 Venous P artial Pressure CO2 JE[facility] ([facility]) venous HCO3 21.5 mEq/L 23.0-27.0 Below low normal Venous HCO3 [place] ([facility]) venous total CO2 22.8 mEq/L 24.0-28.0 Below low normal Venous Total CO2 JEFF ([facility]) venous partial pressure O2 62.5 mmHg 30.0-50.0 Above high nor mal Venous Partial Pressure O2 JE[facility] ([facility]) venous standard HCO3 20.7 mEq/L Venous Standard HCO3 [place] ([facility]) venous base excess -2.0-2.0 Below low normal Venous Base Excess [place] ([facility]) venous O2 saturation 91.2 % 60.0-80.0 Above high normal Venous O 2 Saturation [place] ([facility]) ID Date Data Source [id number] 08/09/2020 12:40:00 PM EDT [facility]) Name Value Range Interpretation Code Description Data Becky rce(s) Supporting Document(s) estimated average glucose 200 mg/dL 60-110 Above high norm al Estimated Average Glucose [facility]) Hemoglobin A1c/Hemoglobin.total in Blood 8.6 % Hemoglobin a1C [facility]) ID Date Data Source [id number] 08/09/2020 12:40:00 PM EDT [facility]) Name Value Range Interpretation Code Description Data Becky rce(s) Supporting Document(s) acetone/ketone 1.22 mg/dL <2.81 Acetone/ketone [place] ([facility]) ID Date Data Source [id number] 08/09/2020 12:40:00 PM EDT [place] ([facility]) Name Value Range Interpretation Code Description Data Becky rce(s) Supporting Document(s) creatinine for GFR 1.03 mg/dL 0.70-1.30 Creatinine for GF R [place] ([facility]) blood urea nitrogen 16 mg/dL 7-18 Blood Urea Nitro gen JEFF ([facility]) glomerular filtration rate > 60.0 >60 Glomerula r Filtration Rate [facility] ([facility]) glucose, fasting [facility] ID Date Data Source [id number] 08/09/2020 12:40:00 PM EDT JEFF ([facility]) Name Value Range Interpretation Code Description Data Becky rce(s) Supporting Document(s) ALT/SGPT 39 U/L 12-78 ALT/SGPT [facility] ([facility]) AST/SGOT 24 U/L 7-37 AST/SGOT [facility] ([facility]) bilirubin,direct 0.1 mg/dL 0.0-0.2 Bilirubin,direct AT [facility]) total protein 7.6 gm/dL 6.4-8.2 Total Protein JEFF ( [facility]) bilirubin,total 0.4 mg/dL 0.2-1.0 Bilirubin,total [facility] ([facility]) alkaline phosphatase 101 U/L 45-117 Alkaline Phosph atase [facility] ([facility]) albumin/globulin ratio Albumin/globu bianca Ratio [facility] ([facility]) albumin 3.9 gm/dL 3.2-5.2 Albumin [facility] ([facility]) ID Date Data Source [id number] 08/09/2020 12:40:00 PM EDT [facility] [...] % 7.6 % 0.0-5.0 Above high normal [place] % [place] ([facility]) platelet count, automated 186 10 150-450 Platelet C ount, Automated [facility] ([facility]) neutrophils % 60.8 % 36.0-66.0 Neutrophils % [place] ( [facility]) lymph % 23.0 % 24.0-44.0 Below low normal Lymph % [place] ( [facility]) immature granulocyte % 1.8 % 0-3.0 Immature Gran ulocyte % JEFF ([facility]) baso % 1.0 % 0.0-1.0 Baso % [facility] ([facility]) eos % 5.8 % 0.0-3.0 Above high normal Eos % JE[facility] ([facility]) nucleated red blood cell % 0.0 % 0-0 Nucleated Red Blood Cell % [facility] ([facility]) eos # 0.4 10 0.0-0.5 Eos # [facility] ([facility]) lymph # 1.7 10 1.5-5.0 Lymph # [facility] ([facility]) neutrophils # 4.5 10 1.5-8.5 Neutrophils # JE[facility] ( [facility]) mono # 0.6 10 0.0-0.8 [place] # [facility] ([facility]) baso # 0.1 10 0.0-0.2 Baso # [facility] ([facility]) ID Date Data Source [id number] 08/09/2020 12:40:00 PM EDT JE[facility] ([facility]) Name Value Range Interpretation Code Description Data Becky rce(s) Supporting Document(s) venous partial pressure CO2 42.6 mmHg 38.0-50.0 Venous P artial Pressure CO2 [facility] ([facility]) venous pH 7.320 units 7.330-7.430 Below low normal Venous pH [place] ([facility]) venous total CO2 [...] -2.0-2.0 Below low normal Venous Base Excess [place] ([facility]) venous O2 saturation 91.2 % 60.0-80.0 Above high normal Venous O 2 Saturation [facility] ([facility]) ID Date Data Source [id number] 08/09/2020 12:40:00 PM EDT JEFF ([facility]) Name Value Range Interpretation Code Description Data Becky rce(s) Supporting Document(s) acetone/ketone 1.22 mg/dL <2.81 Acetone/ketone [facility] ([facility]) ID Date Data Source [id number] 08/09/2020 12:40:00 PM EDT [place] ([facility]) Name Value Range [...] calcium level 9.7 mg/dL 8.5-10.1 Calcium Level [place] ( [facility]) ID Date Data Source [id number] 08/09/2020 12:40:00 PM EDT [place] ([facility]) Name Value Range Interpretation Code Description Data Becky rce(s) Supporting Document(s) AST/SGOT 24 U/L 7-37 AST/SGOT [facility] ([facility]) ALT/SGPT 39 U/L 12-78 ALT/SGPT [place] ([facility]) bilirubin,total 0.4 mg/dL 0.2-1.0 Bilirubin,total ATHE NA ([facility]) total protein 7.6 gm/dL 6.4-8.2 Total Protein JEFF ( [facility]) bilirubin,direct 0.1 mg/dL 0.0-0.2 Bilirubin,direct AT [facility] ([facility]) alkaline phosphatase 101 U/L 45-117 Alkaline Phosph atase JEFF ([facility]) albumin 3.9 gm/dL 3.2-5.2 Albumin [place] ([facility]) albumin/globulin ratio Albumin/globu bianca Ratio [facility] ([facility]) ID Date Data Source [id number] 08/09/2020 12:40:00 PM EDT JE[facility] ([facility]) Name Value Range Interpretation Code Description Data Becky rce(s) Supporting Document(s) white blood count 7.4 10 4.0-10.0 White Blood Count [facility] ([facility]) red blood count 5.23 10 4.30-6.10 Red Blood Count [facility] ([facility]) hemoglobin 15.5 g/dL [...] % 7.6 % 0.0-5.0 Above high normal [place] % JEFF ([facility]) eos % 5.8 % 0.0-3.0 Above high normal Eos % [facility] ([facility]) baso % 1.0 % 0.0-1.0 Baso % [facility] ([facility]) immature granulocyte % 1.8 % 0-3.0 Immature Gran ulocyte % JE[facility] ([facility]) nucleated red blood cell % 0.0 % 0-0 Nucleated Red Blood Cell % [facility] ([facility]) neutrophils # 4.5 10 1.5-8.5 Neutrophils # JEFF ( [facility]) mono # 0.6 10 0.0-0.8 [place]igg # JE[facility] ([facility]) lymph # 1.7 10 1.5-5.0 Lymph # [facility] ([facility]) eos # 0.4 10 0.0-0.5 Eos # [facility] ([facility]) baso # 0.1 10 0.0-0.2 Baso # [facility] ([facility]) ID Date Data Source [id number] 08/09/2020 12:40:00 PM EDT [facility] ID Date Data Source [id number] 08/09/2020 12:40:00 PM EDT [place] ([facility]) Name Value Range Interpretation Code Description Data Becky rce(s) Supporting Document(s) Hemoglobin A1c/Hemoglobin.total in Blood 8.6 % Hemoglobin a1C [place] ([facility]) estimated average glucose 200 mg/dL 60-110 Above high norm al Estimated Average Glucose [place] ([facility]) ID Date Data Source [id number] 08/09/2020 12:40:00 PM EDT JE[facility] ([facility]) Name Value Range Interpretation Code Description Data Becky rce(s) Supporting Document(s) acetone/ketone 1.22 mg/dL <2.81 Acetone/ketone [facility] ([facility]) ID Date Data Source [id number] 08/09/2020 12:40:00 PM EDT [place] ([facility]) Name Value Range Interpretation Code Description Data Becky rce(s) Supporting Document(s) blood urea nitrogen 16 mg/dL 7-18 Blood Urea Nitro gen JE[facility] ([facility]) glucose, fasting 210 mg/dL 70-100 Above high normal Glucose, Fas ting [facility] ([facility]) creatinine for GFR 1.03 mg/dL 0.70-1.30 Creatinine for GF R [place] ([facility]) potassium serum 4.0 mEq/L 3.5-5.1 Potassium Serum [facility] ([facility]) sodium level 135 [...] chloride level 101 mEq/L 98-107 Chloride Level [facility]) ID Date Data Source [id number] 08/09/2020 12:40:00 PM EDT [facility]) Name Value Range Interpretation Code Description Data Becky rce(s) Supporting Document(s) AST/SGOT 24 U/L 7-37 AST/SGOT [facility] ([facility]) bilirubin,direct 0.1 mg/dL 0.0-0.2 Bilirubin,direct AT [facility] ([facility]) alkaline phosphatase 101 U/L 45-117 Alkaline Phosph atase [facility] ([facility]) ALT/SGPT 39 U/L 12-78 ALT/SGPT [facility] ([facility]) bilirubin,total 0.4 mg/dL 0.2-1.0 Bilirubin,total ATHE NA ([facility]) albumin 3.9 gm/dL 3.2-5.2 Albumin [facility] ([facility]) total protein 7.6 gm/dL 6.4-8.2 Total Protein JEFF ( [facility]) albumin/globulin ratio Albumin/globu bianca Ratio [facility] ([facility]) ID Date Data Source [id number] 08/09/2020 12:40:00 PM EDT [facility] [...] % 7.6 % 0.0-5.0 Above high normal [place] % [facility] ([facility]) nucleated red blood cell % 0.0 % 0-0 Nucleated Red Blood Cell % [facility] ([facility]) baso % 1.0 % 0.0-1.0 Baso % [place] ([facility]) immature granulocyte % 1.8 % 0-3.0 Immature Gran ulocyte % [place] ([facility]) eos % 5.8 % 0.0-3.0 Above high normal Eos % [place] ([facility]) lymph # 1.7 10 1.5-5.0 Lymph # JEFF ([facility]) neutrophils # 4.5 10 1.5-8.5 Neutrophils # JEFF ( [facility]) mono # 0.6 10 0.0-0.8 Trigg # [facility]FF ([facility]) baso # 0.1 10 0.0-0.2 Baso # [facility] ([facility]) eos # 0.4 10 0.0-0.5 Eos # [facility] ([facility]) ID Date Data Source [id number] 08/09/2020 12:40:00 PM EDT [place] ([facility]) Name Value Range Interpretation Code Description Data Becky rce(s) Supporting Document(s) venous pH 7.320 units 7.330-7.430 Below low normal Venous pH [place] ([facility]) venous partial pressure O2 62.5 mmHg 30.0-50.0 Above high nor mal Venous Partial Pressure O2 [place] ([facility]) venous partial pressure CO2 42.6 mmHg 38.0-50.0 Venous P artial Pressure CO2 [place] ([facility]) venous base excess [facility] ID Date Data Source [id number] 08/09/2020 12:40:00 PM EDT [place] ([facility]) Name Value Range Interpretation Code Description Data Becky rce(s) Supporting Document(s) Hemoglobin A1c/Hemoglobin.total in Blood 8.6 % Hemoglobin a1C [facility] ([facility]) estimated average glucose 200 mg/dL 60-110 Above high norm al Estimated Average Glucose [facility] ([facility]) ID Date Data Source [id number] 08/09/2020 12:40:00 PM EDT [facility] ([facility]) Name Value Range Interpretation Code Description Data Becky rce(s) Supporting Document(s) acetone/ketone 1.22 mg/dL <2.81 Acetone/ketone [facility] ([facility]) ID Date Data Source [id number] 08/09/2020 12:40:00 PM EDT [facility] ([facility]) Name [facility] Range [facility] Date Data Source [id number] 08/09/2020 12:40:00 PM EDT [facility] ([facility]) Name Value Range Interpretation Code Description Data Becky rce(s) Supporting Document(s) AST/SGOT 24 U/L 7-37 AST/SGOT [facility] ([facility]) bilirubin,total 0.4 mg/dL 0.2-1.0 Bilirubin,total ATHE ([facility]) alkaline phosphatase 101 U/L 45-117 Alkaline Phosph atase JEFF ([facility]) bilirubin,direct 0.1 mg/dL 0.0-0.2 Bilirubin,direct AT [facility] ([facility]) ALT/SGPT 39 U/L 12-78 ALT/SGPT [facility] ([facility]) total protein 7.6 gm/dL 6.4-8.2 Total Protein JE[facility] ( [facility]) albumin 3.9 gm/dL 3.2-5.2 Albumin [facility] ([facility]) albumin/globulin ratio Albumin/globu bianca Ratio JE[facility] ([facility]) ID Date Data Source [id number] 08/09/2020 12:40:00 PM EDT [facility] % 7.6 % 0.0-5.0 Above high normal [place] % JE[facility] ([facility]) neutrophils [...] % 1.0 % 0.0-1.0 Baso % [facility] ([facility]) nucleated red blood cell % 0.0 % 0-0 Nucleated Red Blood Cell % JE[facility] ([facility]) neutrophils # 4.5 10 1.5-8.5 Neutrophils # JE[facility] ( [facility]) lymph # 1.7 10 1.5-5.0 Lymph # [facility] ([facility]) mono # 0.6 10 0.0-0.8 [place] # [facility] ([facility]) eos # 0.4 10 0.0-0.5 Eos # [facility] ([facility]) baso # 0.1 10 0.0-0.2 Baso # [facility] ([facility]) ID Date Data Source [id number] 08/09/2020 12:40:00 PM EDT [facility] ID Date Data Source [id number] 08/09/2020 12:40:00 PM EDT JE[facility] ([facility]) Name Value Range Interpretation Code Description Data Becky rce(s) Supporting Document(s) Hemoglobin A1c/Hemoglobin.total in Blood 8.6 % Hemoglobin a1C JE[facility] ([facility]) estimated average glucose 200 mg/dL 60-110 Above high norm al Estimated Average Glucose [facility] ([facility]) ID Date Data Source [id number] 08/09/2020 12:40:00 PM EDT JE[facility] ([facility]) Name Value Range Interpretation Code Description Data Becky rce(s) Supporting Document(s) acetone/ketone 1.22 mg/dL <2.81 Acetone/ketone [facility] ([facility]) ID Date Data Source [id number] 08/09/2020 12:40:00 PM EDT [facility] ID Date Data Source [id number] 08/09/2020 12:40:00 PM EDT JE[facility] ([facility]) Name Value Range Interpretation Code Description Data Becky rce(s) Supporting Document(s) AST/SGOT 24 U/L 7-37 AST/SGOT [facility] ([facility]) ALT/SGPT 39 U/L 12-78 ALT/SGPT [facility] ([facility]) alkaline phosphatase 101 U/L 45-117 Alkaline Phosph atase JE[facility] ([facility]) bilirubin,total 0.4 mg/dL 0.2-1.0 Bilirubin,total ATHE NA ([facility]) total protein 7.6 gm/dL 6.4-8.2 Total Protein JEFF ( [facility]) albumin/globulin ratio Albumin/globu bianca Ratio JEFF ([facility]) albumin 3.9 gm/dL 3.2-5.2 Albumin [facility] ([facility]) bilirubin,direct 0.1 mg/dL 0.0-0.2 Bilirubin,direct AT [facility] ([facility]) ID Date Data Source [id number] 08/09/2020 12:40:00 PM EDT [place] ([facility]) Name Value Range [...] % 7.6 % 0.0-5.0 Above high normal [place] % JEFF ([facility]) lymph [...] % 1.0 % 0.0-1.0 Baso % [facility] ([facility]) neutrophils # 4.5 10 1.5-8.5 Neutrophils # JEFF ( [facility]) mono # 0.6 10 0.0-0.8 [place] # [facility] ([facility]) eos # 0.4 10 0.0-0.5 Eos # [facility] ([facility]) lymph # 1.7 10 1.5-5.0 Lymph # [facility] ([facility]) baso # 0.1 10 0.0-0.2 Baso # [facility] ([facility]) ID Date Data Source [id number] 08/09/2020 12:40:00 PM EDT [place] ([facility]) Name Value Range Interpretation Code Description Data Becky rce(s) Supporting Document(s) venous pH 7.320 units 7.330-7.430 Below low normal Venous pH [place] ([facility]) venous partial pressure O2 62.5 mmHg 30.0-50.0 Above high nor mal Venous Partial Pressure O2 JE[facility] ([facility]) venous partial pressure CO2 42.6 mmHg 38.0-50.0 Venous P artial Pressure CO2 [place] ([facility]) venous base excess -2.0-2.0 Below low normal Venous Base Excess [facility] ([facility]) venous total CO2 22.8 mEq/L 24.0-28.0 Below low normal Venous Total CO2 [facility] ([facility]) venous standard HCO3 20.7 mEq/L Venous Standard HCO3 JE[facility] ([facility]) venous HCO3 21.5 mEq/L 23.0-27.0 Below low normal Venous HCO3 [place] ([facility]) venous O2 saturation 91.2 % 60.0-80.0 Above high normal Venous O 2 Saturation [facility] ([facility]) ID Date Data Source [id number] 08/09/2020 12:40:00 PM EDT [facility]) Name Value Range Interpretation Code Description Data Becky rce(s) Supporting Document(s) Hemoglobin A1c/Hemoglobin.total in Blood 8.6 % Hemoglobin a1C [place] ([facility]) estimated average glucose 200 mg/dL 60-110 Above high norm al Estimated Average Glucose [facility]) ID Date Data Source [id number] 08/09/2020 12:40:00 PM EDT [facility]) Name Value Range Interpretation Code Description Data Becky rce(s) Supporting Document(s) acetone/ketone 1.22 mg/dL <2.81 Acetone/ketone [facility]) ID Date Data Source [id number] 08/09/2020 12:40:00 PM EDT [facility]) Name Value Range Interpretation Code Description [...] chloride level 101 mEq/L 98-107 Chloride Level [place] ([facility]) potassium serum 4.0 mEq/L 3.5-5.1 Potassium Serum ATHE NA ([facility]) anion gap 6 mEq/L 8-16 Below low normal Anion Gap JE[facility] ( [facility]) calcium level 9.7 mg/dL 8.5-10.1 Calcium Level [facility] ( [facility]) ID Date Data Source [id number] 08/09/2020 12:40:00 PM EDT JE[facility] ([facility]) Name Value Range Interpretation Code Description Data Becky rce(s) Supporting Document(s) AST/SGOT 24 U/L 7-37 AST/SGOT [facility] ([facility]) ALT/SGPT 39 U/L 12-78 ALT/SGPT [facility] ([facility]) bilirubin,direct 0.1 mg/dL 0.0-0.2 Bilirubin,direct AT [facility] ([facility]) total protein 7.6 gm/dL 6.4-8.2 Total Protein JE[facility] ( [facility]) alkaline phosphatase 101 U/L 45-117 Alkaline Phosph atase [facility] ([facility]) bilirubin,total 0.4 mg/dL 0.2-1.0 Bilirubin,total ATHE NA ([facility]) albumin 3.9 gm/dL 3.2-5.2 Albumin [facility] ([facility]) albumin/globulin ratio Albumin/globu bainca Ratio JE[facility] ([facility]) ID Date Data Source [id number] 08/09/2020 12:40:00 PM EDT [facility] [...] % 7.6 % 0.0-5.0 Above high normal [place] % JE[facility] ([facility]) eos [...] % 1.0 % 0.0-1.0 Baso % [facility] ([facility]) mono # 0.6 10 0.0-0.8 [place] # [facility] ([facility]) baso # 0.1 10 0.0-0.2 Baso # [facility] ([facility]) eos # 0.4 10 0.0-0.5 Eos # [facility] ([facility]) lymph # 1.7 10 1.5-5.0 Lymph # [facility] ([facility]) ID Date Data Source [id number] 08/09/2020 12:40:00 PM EDT [facility] [...] 24.0-28.0 Below low normal Venous Total CO2 [place] ([facility]) venous standard HCO3 20.7 mEq/L Venous Standard HCO3 [facility] ([facility]) venous base excess -2.0-2.0 Below low normal Venous Base Excess [facility] ([facility]) venous O2 saturation 91.2 % 60.0-80.0 Above high normal Venous O 2 Saturation [place] ([facility]) ID Date Data Source [id number] 08/09/2020 12:40:00 PM EDT JE[facility] ([facility]) Name Value Range Interpretation Code Description Data Becky rce(s) Supporting Document(s) Hemoglobin A1c/Hemoglobin.total in Blood 8.6 % Hemoglobin a1C [facility] ([facility]) estimated average glucose 200 mg/dL 60-110 Above high norm al Estimated Average Glucose [facility] ([facility]) ID Date Data Source [id number] 08/09/2020 12:40:00 PM EDT JE[facility] ([facility]) Name Value Range Interpretation Code Description Data Becky rce(s) Supporting Document(s) acetone/ketone 1.22 mg/dL <2.81 Acetone/ketone [facility] ([facility]) ID Date Data Source [id number] 08/09/2020 12:40:00 PM EDT [facility] ID Date Data Source [id number] 08/09/2020 12:40:00 PM EDT JE[facility] ([facility]) Name Value Range Interpretation Code Description Data Becky rce(s) Supporting Document(s) alkaline phosphatase 101 U/L 45-117 Alkaline Phosph atase [facility] ([facility]) ALT/SGPT 39 U/L 12-78 ALT/SGPT [facility] ([facility]) bilirubin,total 0.4 mg/dL 0.2-1.0 Bilirubin,total ATHE NA ([facility]) AST/SGOT 24 U/L 7-37 AST/SGOT [facility] ([facility]) albumin 3.9 gm/dL 3.2-5.2 Albumin [facility] ([facility]) albumin/globulin ratio Albumin/globu bianca Ratio JE[facility] ([facility]) total protein 7.6 gm/dL 6.4-8.2 Total Protein JE[facility] ( [facility]) bilirubin,direct 0.1 mg/dL 0.0-0.2 Bilirubin,direct AT [facility] ([facility]) ID Date Data Source [id number] 08/09/2020 12:40:00 PM EDT [facility] [...] % 7.6 % 0.0-5.0 Above high normal [place] % JE[facility] ([facility]) eos [...] % 1.0 % 0.0-1.0 Baso % [facility] ([facility]) mono # 0.6 10 0.0-0.8 [place] # [facility] ([facility]) eos # 0.4 10 0.0-0.5 Eos # [facility] ([facility]) neutrophils # 4.5 10 1.5-8.5 Neutrophils # JE[facility] ( [facility]) lymph # 1.7 10 1.5-5.0 Lymph # [facility] ([facility]) baso # 0.1 10 0.0-0.2 Baso # [facility] ([facility]) ID Date Data Source [id number] 08/09/2020 12:40:00 PM EDT [place] ([facility]) Name Value Range [...] Above high normal Venous O 2 Saturation [facility] ([facility]) ID Date Data Source [id number] 08/09/2020 12:40:00 PM EDT [place] ([facility]) Name Value Range Interpretation Code Description Data Becky rce(s) Supporting Document(s) estimated average glucose 200 mg/dL 60-110 Above high norm al Estimated Average Glucose [facility] ([facility]) Hemoglobin A1c/Hemoglobin.total in Blood 8.6 % Hemoglobin a1C [place] ([facility]) ID Date Data Source [id number] 08/09/2020 12:40:00 PM EDT JE[facility] ([facility]) Name Value Range Interpretation Code Description Data Becky rce(s) Supporting Document(s) acetone/ketone 1.22 mg/dL <2.81 Acetone/ketone [place] ([facility]) ID Date Data Source [id number] 08/09/2020 12:40:00 PM EDT [facility] ID Date Data Source [id number] 08/09/2020 12:40:00 PM EDT [facility] ([facility]) Name Value Range Interpretation Code Description Data Becky rce(s) Supporting Document(s) AST/SGOT 24 U/L 7-37 AST/SGOT [facility] ([facility]) ALT/SGPT 39 U/L 12-78 ALT/SGPT [facility] ([facility]) alkaline phosphatase 101 U/L 45-117 Alkaline Phosph atase [facility] ([facility]) albumin 3.9 gm/dL 3.2-5.2 Albumin [facility] ([facility]) bilirubin,direct 0.1 mg/dL 0.0-0.2 Bilirubin,direct AT [facility] ([facility]) total protein 7.6 gm/dL 6.4-8.2 Total Protein JEFF ( [facility]) bilirubin,total 0.4 mg/dL 0.2-1.0 Bilirubin,total AT[facility] ([facility]) albumin/globulin ratio Albumin/globu bianca Ratio [facility] ([facility]) ID Date Data Source [id number] 08/09/2020 12:40:00 PM EDT [facility] [...] % 7.6 % 0.0-5.0 Above high normal [place] % [facility] ([facility]) eos % 5.8 % 0.0-3.0 Above high normal Eos % [facility] ([facility]) lymph % 23.0 % 24.0-44.0 Below low normal Lymph % JE[facility] ( [facility]) baso % 1.0 % 0.0-1.0 Baso % [facility] ([facility]) lymph # 1.7 10 1.5-5.0 Lymph # [place] ([facility]) neutrophils # 4.5 10 1.5-8.5 Neutrophils # [place] ( [facility]) nucleated red blood cell % 0.0 % 0-0 Nucleated Red Blood Cell % [facility] ([facility]) immature granulocyte % 1.8 % 0-3.0 Immature Gran ulocyte % [place] ([facility]) baso # 0.1 10 0.0-0.2 Baso # [facility] ([facility]) eos # 0.4 10 0.0-0.5 Eos # [facility] ([facility]) mono # 0.6 10 0.0-0.8 [place] # [facility] ([facility]) ID Date Data Source [id number] 08/09/2020 12:40:00 PM EDT [place] ([facility]) Name Value Range Interpretation Code Description Data Becky rce(s) Supporting Document(s) venous pH 7.320 units 7.330-7.430 Below low normal Venous pH [facility] ([facility]) venous partial pressure O2 62.5 mmHg 30.0-50.0 Above high nor mal Venous Partial Pressure O2 [place] ([facility]) venous partial pressure CO2 42.6 mmHg 38.0-50.0 Venous P artial Pressure CO2 [facility] ([facility]) venous base excess -2.0-2.0 Below low normal Venous Base Excess [facility] ([facility]) venous HCO3 21.5 mEq/L 23.0-27.0 Below low normal Venous HCO3 [place] ([facility]) venous total CO2 22.8 mEq/L 24.0-28.0 Below low normal Venous Total CO2 [place] ([facility]) venous O2 saturation 91.2 % 60.0-80.0 Above high normal Venous O 2 Saturation [place] ([facility]) venous standard HCO3 20.7 mEq/L Venous Standard HCO3 [facility] ([facility]) ID Date Data Source [id number] 08/09/2020 12:40:00 PM EDT [place] ([facility]) Name Value Range Interpretation Code Description Data Becky rce(s) Supporting Document(s) Hemoglobin A1c/Hemoglobin.total in Blood 8.6 % Hemoglobin a1C [place] ([facility]) estimated average glucose 200 mg/dL 60-110 Above high norm al Estimated Average Glucose [place] ([facility]) ID Date Data Source [id number] 08/09/2020 12:40:00 PM EDT [place] ([facility]) Name Value Range Interpretation Code Description Data Becky rce(s) Supporting Document(s) acetone/ketone 1.22 mg/dL <2.81 Acetone/ketone [facility] ([facility]) ID Date Data Source [id number] 08/09/2020 12:40:00 PM EDT [place] ([facility]) Name Value Range Interpretation Code Description Data Becky rce(s) Supporting Document(s) creatinine for GFR 1.03 mg/dL 0.70-1.30 Creatinine for GF R [place] ([facility]) glucose, fasting 210 mg/dL 70-100 Above high normal Glucose, Fas ting [place] ([facility]) blood urea nitrogen [facility] ID Date Data Source [id number] 08/09/2020 12:40:00 PM EDT [facility] ([facility]) Name Value Range Interpretation Code Description Data Becky rce(s) Supporting Document(s) AST/SGOT 24 U/L 7-37 AST/SGOT [facility] ([facility]) ALT/SGPT 39 U/L 12-78 ALT/SGPT [facility] ([facility]) bilirubin,direct 0.1 mg/dL 0.0-0.2 Bilirubin,direct AT [facility] ([facility]) alkaline phosphatase 101 U/L 45-117 Alkaline Phosph atase [facility] ([facility]) total protein 7.6 gm/dL 6.4-8.2 Total Protein [facility] ( [facility]) bilirubin,total 0.4 mg/dL 0.2-1.0 Bilirubin,total [facility] ([facility]) albumin/globulin ratio Albumin/globu bianca Ratio [facility] ([facility]) albumin 3.9 gm/dL 3.2-5.2 Albumin [place] ([facility]) ID Date Data Source [id number] 08/09/2020 12:40:00 PM EDT [facility] neutrophils % 60.8 % 36.0-66.0 Neutrophils % [place] ( [facility]) mono % 7.6 % 0.0-5.0 Above high normal [place] % [facility] ([facility]) baso % 1.0 % 0.0-1.0 Baso % [facility] ([facility]) eos % 5.8 % 0.0-3.0 Above high normal Eos % [facility] ([facility]) lymph % 23.0 % 24.0-44.0 Below low normal Lymph % [facility] ( [facility]) immature granulocyte % 1.8 % 0-3.0 Immature Gran ulocyte % [facility] ([facility]) neutrophils # 4.5 10 1.5-8.5 Neutrophils # [place] ( [facility]) nucleated red blood cell % 0.0 % 0-0 Nucleated Red Blood Cell % [facility] ([facility]) lymph # 1.7 10 1.5-5.0 Lymph # [facility] ([facility]) mono # 0.6 10 0.0-0.8 [place] # [facility] ([facility]) eos # 0.4 10 0.0-0.5 Eos # [facility] ([facility]) baso # 0.1 10 0.0-0.2 Baso # [facility] ([facility]) ID Date Data Source [id number] 08/09/2020 12:40:00 PM EDT [facility] ID Date Data Source [id number] 08/09/2020 12:40:00 PM EDT [facility] ([facility]) Name Value Range Interpretation Code Description Data Becky rce(s) Supporting Document(s) Hemoglobin A1c/Hemoglobin.total in Blood 8.6 % Hemoglobin a1C [facility] ([facility]) estimated average glucose 200 mg/dL 60-110 Above high norm al Estimated Average Glucose [facility] ([facility]) ID Date Data Source [id number] 08/09/2020 12:40:00 PM EDT [place] ([facility]) Name Value Range Interpretation Code Description Data Becky rce(s) Supporting Document(s) acetone/ketone 1.22 mg/dL <2.81 Acetone/ketone [facility] ([facility]) ID Date Data Source [id number] 08/09/2020 12:40:00 PM EDT [facility] ([facility]) Name Value Range Interpretation Code Description Data Ebcky rce(s) Supporting Document(s) glucose, fasting 210 mg/dL 70-100 Above high normal Glucose, Fas ting [facility] ([facility]) blood urea nitrogen 16 mg/dL 7-18 Blood Urea Nitro gen [facility] ([facility]) glomerular filtration rate > 60.0 >60 Glomerula r Filtration Rate [facility] ([facility]) creatinine for GFR 1.03 mg/dL 0.70-1.30 Creatinine for GF R [place] ([facility]) sodium level 135 [...] calcium level 9.7 mg/dL 8.5-10.1 Calcium Level [facility] ( [facility]) ID Date Data Source [id number] 08/09/2020 12:40:00 PM EDT [facility] ([facility]) Name Value Range Interpretation Code Description Data Becky rce(s) Supporting Document(s) AST/SGOT 24 U/L 7-37 AST/SGOT [facility] ([facility]) bilirubin,total 0.4 mg/dL 0.2-1.0 Bilirubin,total AT[facility] NA ([facility]) ALT/SGPT 39 U/L 12-78 ALT/SGPT [facility] ([facility]) alkaline phosphatase 101 U/L 45-117 Alkaline Phosph atase [facility] ([facility]) bilirubin,direct 0.1 mg/dL 0.0-0.2 Bilirubin,direct AT [facility] ([facility]) total protein 7.6 gm/dL 6.4-8.2 Total Protein [facility] ( [facility]) albumin 3.9 gm/dL 3.2-5.2 Albumin [facility] ([facility]) albumin/globulin ratio Albumin/globu bianca Ratio [facility] ([facility]) ID Date Data Source [id number] 08/09/2020 12:40:00 PM EDT [facility] [...] % 1.0 % 0.0-1.0 Baso % [facility] ([facility]) mono % 7.6 % 0.0-5.0 Above high normal [place] % [facility] ([facility]) lymph # 1.7 10 1.5-5.0 Lymph # [facility] ([facility]) neutrophils # 4.5 10 1.5-8.5 Neutrophils # [place] ( [facility]) nucleated red blood cell % 0.0 % 0-0 Nucleated Red Blood Cell % [facility] ([facility]) baso # 0.1 10 0.0-0.2 Baso # [facility] ([facility]) eos # 0.4 10 0.0-0.5 Eos # [facility] ([facility]) mono # 0.6 10 0.0-0.8 [place] # [facility] ([facility]) ID Date Data Source [id number] 08/09/2020 12:40:00 PM EDT [place] ([facility]) Name Value Range Interpretation Code Description Data Becky rce(s) Supporting Document(s) venous pH 7.320 units 7.330-7.430 Below low normal Venous pH [place] ([facility]) venous partial pressure [...] mEq/L 23.0-27.0 Below low normal Venous HCO3 [place] ([facility]) venous total CO2 22.8 mEq/L 24.0-28.0 Below low normal Venous Total CO2 [facility] ([facility]) venous O2 saturation 91.2 % 60.0-80.0 Above high normal Venous O 2 Saturation [facility] ([facility]) venous standard HCO3 20.7 mEq/L Venous Standard HCO3 [facility] ([facility]) ID Date Data Source [id number] 08/09/2020 12:40:00 PM EDT [place] ([facility]) Name Value Range Interpretation Code Description Data Becky rce(s) Supporting Document(s) estimated average glucose 200 mg/dL 60-110 Above high norm al Estimated Average Glucose [facility] ([facility]) Hemoglobin A1c/Hemoglobin.total in Blood 8.6 % Hemoglobin a1C [facility] ([facility]) ID Date Data Source [id number] 08/09/2020 12:40:00 PM EDT [place] ([facility]) Name Value Range Interpretation Code Description Data Becky rce(s) Supporting Document(s) acetone/ketone 1.22 mg/dL <2.81 Acetone/ketone [facility] ([facility]) ID Date Data Source [id number] 08/09/2020 12:40:00 PM EDT [facility]) Name Value Range Interpretation Code Description [...] [facility] ID Date Data Source [id number] 08/09/2020 12:40:00 PM EDT [facility] ([facility]) Name Value Range Interpretation Code Description Data Becky rce(s) Supporting Document(s) AST/SGOT 24 U/L 7-37 AST/SGOT [facility] ([facility]) bilirubin,total 0.4 mg/dL 0.2-1.0 Bilirubin,total [facility] ([facility]) alkaline phosphatase 101 U/L 45-117 Alkaline Phosph atase [facility] ([facility]) ALT/SGPT 39 U/L 12-78 ALT/SGPT [facility] ([facility]) albumin 3.9 gm/dL 3.2-5.2 Albumin [facility] ([facility]) bilirubin,direct 0.1 mg/dL 0.0-0.2 Bilirubin,direct AT [facility] ([facility]) albumin/globulin ratio Albumin/globu bianca Ratio [facility] ([facility]) total protein 7.6 gm/dL 6.4-8.2 Total Protein [facility] ( [facility]) ID Date Data Source [id number] 08/09/2020 12:40:00 PM EDT [facility] [...] % 7.6 % 0.0-5.0 Above high normal [place] % [facility] ([facility]) baso % 1.0 % 0.0-1.0 Baso % JEFF ([facility]) lymph # 1.7 10 1.5-5.0 Lymph # JEFF ([facility]) nucleated red blood cell % 0.0 % 0-0 Nucleated Red Blood Cell % JEFF ([facility]) neutrophils # 4.5 10 1.5-8.5 Neutrophils # JEFF ( [facility]) eos # 0.4 10 0.0-0.5 Eos # JEFF ([facility]) mono # 0.6 10 0.0-0.8 [place] # JEFF ([facility]) baso # 0.1 10 0.0-0.2 Baso # JEFF ([facility]) ID Date Data Source [id number] 08/09/2020 12:40:00 PM EDT [facility] [place] [facility] [...] 24.0-28.0 Below low normal Venous Total CO2 [place] ([facility]) venous base excess -2.0-2.0 Below low normal Venous Base Excess [place] ([facility]) venous HCO3 21.5 mEq/L 23.0-27.0 Below low normal Venous HCO3 [place] ([facility]) venous O2 saturation 91.2 % 60.0-80.0 Above high normal Venous O 2 Saturation [place] ([facility]) venous standard HCO3 20.7 mEq/L Venous Standard HCO3 [place] ([facility]) ID Date Data Source [id number] 08/09/2020 12:40:00 PM EDT [place] ([facility]) Name Value Range Interpretation Code Description Data Becky rce(s) Supporting Document(s) Hemoglobin A1c/Hemoglobin.total in Blood 8.6 % Hemoglobin a1C JEFF ([facility]) estimated average glucose 200 mg/dL 60-110 Above high norm al Estimated Average Glucose JEFF ([facility]) ID Date Data Source [id number] 08/09/2020 12:40:00 PM EDT JEFF ([facility]) Name Value Range Interpretation Code Description Data Becky rce(s) Supporting Document(s) acetone/ketone 1.22 mg/dL <2.81 Acetone/ketone JEFF ([facility]) ID Date Data Source [id number] 08/09/2020 12:40:00 PM EDT [place] ([facility]) Name Value Range [...] 1.03 mg/dL 0.70-1.30 Creatinine for GF R [place] ([facility]) potassium serum 4.0 mEq/L 3.5-5.1 Potassium Serum ATHE NA ([facility]) carbon dioxide level 28 mEq/L 21-32 Carbon Dioxide Level [place] ([facility]) chloride level 101 mEq/L 98-107 Chloride Level [place] ([facility]) sodium level 135 mEq/L 136-145 Below low normal Sodium Level ATHE NA ([facility]) calcium level 9.7 mg/dL 8.5-10.1 Calcium Level [place] ( [facility]) anion gap 6 mEq/L 8-16 Below low normal Anion Gap [place] ( [facility]) ID Date Data Source [id number] 08/09/2020 12:40:00 PM EDT [place] ([facility]) Name Value Range Interpretation Code Description Data Becky rce(s) Supporting Document(s) AST/SGOT 24 U/L 7-37 AST/SGOT [place] ([facility]) alkaline phosphatase 101 U/L 45-117 Alkaline Phosph atase [place] ([facility]) ALT/SGPT 39 U/L 12-78 ALT/SGPT [place] ([facility]) bilirubin,direct 0.1 mg/dL 0.0-0.2 Bilirubin,direct AT [facility]) bilirubin,total 0.4 mg/dL 0.2-1.0 Bilirubin,total ATHE NA ([facility]) total protein 7.6 gm/dL 6.4-8.2 Total Protein JEFF ( [facility]) albumin/globulin ratio Albumin/globu bianca Ratio JEFF ([facility]) albumin 3.9 gm/dL 3.2-5.2 Albumin JEFF ([facility]) ID Date Data Source [id number] 08/09/2020 12:40:00 PM EDT [facility] % 7.6 % 0.0-5.0 Above high normal [place] % JEFF ([facility]) immature granulocyte % 1.8 % 0-3.0 Immature Gran ulocyte % JEFF ([facility]) eos % 5.8 % 0.0-3.0 Above high normal Eos % JEFF ([facility]) baso % 1.0 % 0.0-1.0 Baso % JEFF ([facility]) lymph # 1.7 10 1.5-5.0 Lymph # JEFF ([facility]) neutrophils # 4.5 10 1.5-8.5 Neutrophils # JEFF ( [facility]) nucleated red blood cell % 0.0 % 0-0 Nucleated Red Blood Cell % JEFF ([facility]) mono # 0.6 10 0.0-0.8 Trigg # JEFF ([facility]) baso # 0.1 10 0.0-0.2 Baso # JEFF ([facility]) eos # 0.4 10 0.0-0.5 Eos # JEFF ([facility]) ID Date Data Source [id number] 08/09/2020 12:40:00 PM EDT [place] ([facility]) Name Value Range [...] [facility] ID Date Data Source [id number] 08/09/2020 12:40:00 PM EDT [place] ([facility]) Name Value Range Interpretation Code Description Data Becky rce(s) Supporting Document(s) Hemoglobin A1c/Hemoglobin.total in Blood 8.6 % Hemoglobin a1C [place] ([facility]) estimated average glucose 200 mg/dL 60-110 Above high norm al Estimated Average Glucose [place] ([facility]) ID Date Data Source [id number] 08/09/2020 12:40:00 PM EDT [place] ([facility]) Name Value Range Interpretation Code Description Data Becky rce(s) Supporting Document(s) Hemoglobin A1c/Hemoglobin.total in Blood 8.6 % Hemoglobin a1C [place] ([facility]) estimated average glucose 200 mg/dL 60-110 Above high norm al Estimated Average Glucose [place] ([facility]) ID Date Data Source [id number] 08/09/2020 12:40:00 PM EDT [place] ([facility]) Name Value Range Interpretation Code Description Data Becky rce(s) Supporting Document(s) acetone/ketone 1.22 mg/dL <2.81 Acetone/ketone [place] ([facility]) ID Date Data Source [id number] 08/09/2020 12:40:00 PM EDT [place] ([facility]) Name Value Range Interpretation Code Description Data Becky rce(s) Supporting Document(s) glucose, fasting 210 mg/dL 70-100 Above high normal Glucose, Fas ting [place] ([facility]) sodium level 135 mEq/L 136-145 Below low normal Sodium Level ATHE NA ([facility]) blood urea nitrogen 16 mg/dL 7-18 Blood Urea Nitro gen [place] ([facility]) creatinine for GFR 1.03 mg/dL 0.70-1.30 Creatinine for GF R [place] ([facility]) glomerular filtration rate [...] [facility] ID Date Data Source [id number] 08/09/2020 12:40:00 PM EDT JEFF ([facility]) Name Value Range Interpretation Code Description Data Becky rce(s) Supporting Document(s) alkaline phosphatase 101 U/L 45-117 Alkaline Phosph atase JEFF ([facility]) ALT/SGPT 39 U/L 12-78 ALT/SGPT [facility] ([facility]) AST/SGOT 24 U/L 7-37 AST/SGOT JEFF ([facility]) bilirubin,total 0.4 mg/dL 0.2-1.0 Bilirubin,total ATHE ([facility]) bilirubin,direct 0.1 mg/dL 0.0-0.2 Bilirubin,direct AT [facility]) total protein 7.6 gm/dL 6.4-8.2 Total Protein JEFF ( [facility]) albumin 3.9 gm/dL 3.2-5.2 Albumin JEFF ([facility]) albumin/globulin ratio Albumin/globu bianca Ratio JEFF ([facility]) ID Date Data Source [id number] 08/09/2020 12:40:00 PM EDT [facility] % 7.6 % 0.0-5.0 Above high normal [place] % JEFF ([facility]) baso % 1.0 % 0.0-1.0 Baso % JEFF ([facility]) eos % 5.8 % 0.0-3.0 Above high [...] # 1.7 10 1.5-5.0 Lymph # JEFF ([facility]) mono # 0.6 10 0.0-0.8 Trigg # JEFF ([facility]) eos # 0.4 10 0.0-0.5 Eos # JEFF ([facility]) baso # 0.1 10 0.0-0.2 Baso # JEFF ([facility]) ID Date Data Source [id number] 08/09/2020 12:40:00 PM EDT [place] ([facility]) Name Value Range Interpretation Code Description Data Becky rce(s) Supporting Document(s) venous pH 7.320 units 7.330-7.430 Below low normal Venous pH JEFF ([facility]) venous partial pressure CO2 42.6 mmHg 38.0-50.0 Venous P artial Pressure CO2 [place] ([facility]) venous partial pressure O2 62.5 mmHg 30.0-50.0 Above high nor mal Venous Partial Pressure O2 [place] ([facility]) venous base excess -2.0-2.0 Below low normal Venous Base Excess [place] ([facility]) venous HCO3 21.5 mEq/L 23.0-27.0 Below low normal Venous HCO3 [place] ([facility]) venous total CO2 22.8 mEq/L 24.0-28.0 Below low normal Venous Total CO2 [place] ([facility]) venous O2 saturation 91.2 % 60.0-80.0 Above high normal Venous O 2 Saturation [place] ([facility]) venous standard HCO3 20.7 mEq/L Venous Standard HCO3 [place] ([facility]) ID Date Data Source [id number] 08/09/2020 11:49:00 AM EDT [place] ([facility]) Name Value Range Interpretation Code Description Data Becky rce(s) Supporting Document(s) bedside glucose 233 mg/dL 70-105 Above high normal Bedside Gluco se [place] ([facility]) ID Date Data Source [id number] 08/09/2020 11:49:00 AM EDT [facility]) Name Value Range Interpretation Code Description Data Becky rce(s) Supporting Document(s) bedside glucose 233 mg/dL 70-105 Above high normal Bedside Gluco se [facility]) ID Date Data Source [id number] 08/09/2020 11:49:00 AM EDT [facility]) Name Value Range Interpretation Code Description Data Becky rce(s) Supporting Document(s) bedside glucose 233 mg/dL 70-105 Above high normal Bedside Gluco se [place] ([facility]) ID Date Data Source [id number] 08/09/2020 11:49:00 AM EDT [facility]) Name Value Range Interpretation Code Description Data Becky rce(s) Supporting Document(s) bedside glucose 233 mg/dL 70-105 Above high normal Bedside Gluco se [facility]) ID Date Data Source [id number] 08/09/2020 11:49:00 AM EDT [facility]) Name Value Range Interpretation Code Description Data Becky rce(s) Supporting Document(s) bedside glucose 233 mg/dL 70-105 Above high normal Bedside Gluco se [facility]) ID Date Data Source [id number] 08/09/2020 11:49:00 AM EDT [facility]) Name Value Range Interpretation Code Description Data Becky rce(s) Supporting Document(s) bedside glucose 233 mg/dL 70-105 Above high normal Bedside Gluco se [facility]) ID Date Data Source [id number] 08/09/2020 11:49:00 AM EDT [facility]) Name Value Range Interpretation Code Description Data Becky rce(s) Supporting Document(s) bedside glucose 233 mg/dL 70-105 Above high normal Bedside Gluco se [facility]) ID Date Data Source [id number] 08/09/2020 11:49:00 AM EDT [facility]) Name Value Range Interpretation Code Description Data Becky rce(s) Supporting Document(s) bedside glucose 233 mg/dL 70-105 Above high normal Bedside Gluco se JEFF ([facility]) ID Date Data Source [id number] 08/09/2020 11:49:00 AM EDT [facility]) Name Value Range Interpretation Code Description Data Becky rce(s) Supporting Document(s) bedside glucose 233 mg/dL 70-105 Above high normal Bedside Gluco se [place] ([facility]) ID Date Data Source [id number] 08/09/2020 11:49:00 AM EDT [facility]) Name Value Range Interpretation Code Description Data Becky rce(s) Supporting Document(s) bedside glucose 233 mg/dL 70-105 Above high normal Bedside Gluco se [place] ([facility]) ID Date Data Source [id number] 08/09/2020 11:49:00 AM EDT [facility]) Name Value Range Interpretation Code Description Data Becky rce(s) Supporting Document(s) bedside glucose 233 mg/dL 70-105 Above high normal Bedside Gluco se [facility]) ID Date Data Source [id number] 08/09/2020 11:49:00 AM EDT [facility]) Name Value Range Interpretation Code Description Data Becky rce(s) Supporting Document(s) bedside glucose 233 mg/dL 70-105 Above high normal [facility] Date Data Source [id number] 08/09/2020 11:49:00 AM EDT [facility]) Name Value Range Interpretation Code Description Data Becky rce(s) Supporting Document(s) bedside glucose 233 mg/dL 70-105 Above high normal Bedside Gluco se [facility]) ID Date Data Source [id number] 08/09/2020 11:49:00 AM EDT [facility]) Name Value Range Interpretation Code Description Data Becky rce(s) Supporting Document(s) bedside glucose 233 mg/dL 70-105 Above high normal Bedside Gluco se [facility]) ID Date Data Source [id number] 08/09/2020 11:49:00 AM EDT [facility]) Name Value Range Interpretation Code Description Data Becky rce(s) Supporting Document(s) bedside glucose 233 mg/dL 70-105 Above high normal Bedside Gluco se [facility]) ID Date Data Source [id number] 08/09/2020 11:49:00 AM EDT [facility]) Name Value Range Interpretation Code Description Data Becky rce(s) Supporting Document(s) bedside glucose 233 mg/dL 70-105 Above high normal Bedside Gluco se [facility]) ID Date Data Source [id number] 08/09/2020 11:49:00 AM EDT [facility]) Name Value Range Interpretation Code Description Data Becky rce(s) Supporting Document(s) bedside glucose 233 mg/dL 70-105 Above high normal Bedside Gluco se [facility]) ID Date Data Source [id number] 08/09/2020 12:00:00 AM EDT [facility]) Name Value Range Interpretation Code Description Data Becky rce(s) Supporting Document(s) ID Date Data Source [id number] 07/28/2020 01:20:20 PM EDT [facility] Measurements & CalculationsHeight: 68 inches [...] during this visit, including review of any [id number] medications, herbal therapies, and/or supplements.Allergy ReviewAllergy List [...] Plan Problems:Assessed:Type 2 diabetes mellitus without complications (WVU00-M95.9) Assessment: Instructions: Suboptimal control.Increase Basaglar from 20 [...] MG ORAL TABLET EXTENDED RELEASEVITAMIN D (ERGOCALCIFEROL) 58205 UNIT ORAL CAPSULEMedication Changes:Added: METFORMIN HCL ER [...] (Moderate)Orders:Adult - Ofc Vst, EST, Level III [CPT-19171] COMP METABOLIC PANEL [CPT-39356] HgBA1c [CPT-44014] LIPID PANEL [CPT-63087] TSH [CPT-86117] T-4 free [CPT-70819] Name Value Range Interpretation Code Description Data Becky rce(s) Supporting Document(s) Procedure Social History Code Duration Value Status Description Data Source(s ) Smoking 07/02/2021 12:00:00 AM EDT Unknown if ever smoked comp leted Unknown if ever smoked [facility] ([facility]) Smoking 06/14/2021 12:00:00 AM EDT Unknown if ever smoked comp leted Unknown if ever smoked [facility] ([facility]) Smoking 05/31/2021 12:00:00 AM EDT Unknown if ever smoked comp leted Unknown if ever smoked [facility] ([facility]) Smoking 05/30/2021 12:00:00 AM EDT Unknown if ever smoked comp leted Unknown if ever smoked [facility] ([facility]) Smoking 05/01/2021 12:00:00 AM EDT Unknown if ever smoked comp leted Unknown if ever smoked [facility] ([facility]) Smoking 03/26/2021 12:00:00 AM EDT Unknown if ever smoked comp leted Unknown if ever smoked [facility] ([facility]) Smoking 02/26/2021 12:00:00 AM EDT Unknown if ever smoked comp leted Unknown if ever smoked [facility] ([facility]) Smoking 02/07/2021 12:00:00 AM EDT Unknown if ever smoked comp leted Unknown if ever smoked [facility] ([facility]) Smoking 01/18/2021 12:00:00 AM EDT Unknown if ever smoked comp leted Unknown if ever smoked [facility] ([facility]) Smoking 12/28/2020 12:00:00 AM EDT Unknown if ever smoked comp leted Unknown if ever smoked [facility] ([facility]) Smoking 12/11/2020 12:00:00 AM EST Unknown if ever smoked comp leted Unknown if ever smoked [facility] ([facility]) Smoking 12/07/2020 12:00:00 AM EST Unknown if ever smoked comp leted Unknown if ever smoked [facility] ([facility]) Smoking 11/07/2020 12:00:00 AM EST Unknown if ever smoked comp leted Unknown if ever smoked [facility] ([facility]) Smoking 10/25/2020 12:00:00 AM EST Unknown if ever smoked comp leted Unknown if ever smoked [facility] ([facility]) Smoking 10/20/2020 12:00:00 AM EST Unknown if ever smoked comp leted Unknown if ever smoked [facility] ([facility]) Smoking 09/28/2020 12:00:00 AM EST Unknown if ever smoked comp leted Unknown if ever smoked [facility] ([facility]) Smoking 09/21/2020 12:00:00 AM EST Unknown if ever smoked comp leted Unknown if ever smoked [facility] ([facility]) Smoking 09/11/2020 12:00:00 AM EST Unknown if ever smoked comp leted Unknown if ever smoked [facility] ([facility]) Smoking 08/24/2020 12:00:00 AM EST Unknown if ever smoked comp leted Unknown if ever smoked [facility] ([facility]) Smoking 08/17/2020 12:00:00 AM EST Unknown if ever smoked comp leted Unknown if ever smoked [facility] ([facility]) Smoking 07/25/2020 12:00:00 AM EDT Unknown if ever smoked comp leted Unknown if ever smoked [facility] ([facility]) Smoking 07/20/2020 12:00:00 AM EDT Unknown if ever smoked comp leted Unknown if ever smoked [facility] ([facility]) Smoking 07/06/2020 12:00:00 AM EDT Unknown if ever smoked comp leted Unknown if ever smoked [facility] ([facility]) Smoking 06/16/2020 12:00:00 AM EDT Unknown if ever smoked comp leted Unknown if ever smoked [facility] ([facility]) Vital Signs ID Date Data Source UNK Name Value Range Interpretation Code Description Data Source(s) Diastolic blood pressure 78 mm[Hg] 78 mm[Hg] JEFF ([facility]) Body height 68 [in_i] 68 [in_i] JEFF ([facility]) Body mass index (BMI) [Ratio] 37.9 kg/m2 37.9 k g/m2 JEFF ([facility]) Systolic blood pressure 109 mm[Hg] 109 mm[Hg] A [facility] ([facility]) Body weight 3992 [oz_av] 3992 [oz_av] JEFF ([facility]) Diastolic blood pressure 90 mm[Hg] 90 mm[Hg] JEFF ([facility]) Body height 68 [in_i] 68 [in_i] JEFF ([facility]) Body mass index (BMI) [Ratio] 38.9 kg/m2 38.9 k g/m2 JEFF ([facility]) Systolic blood pressure 135 mm[Hg] 135 mm[Hg] A [facility] ([facility]) Body weight 4096 [oz_av] 4096 [oz_av] JEFF ([facility]) Diastolic blood pressure 90 mm[Hg] 90 mm[Hg] JEFF ([facility]) Body height 68 [in_i] 68 [in_i] JEFF ([facility]) Body mass index (BMI) [Ratio] 38.9 kg/m2 38.9 k g/m2 JEFF ([facility]) Systolic blood pressure 135 mm[Hg] 135 mm[Hg] A [facility] ([facility]) Body weight 4096 [oz_av] 4096 [oz_av] JEFF ([facility]) Diastolic blood pressure 94 mm[Hg] 94 mm[Hg] JEFF ([facility]) Body height 68 [in_i] 68 [in_i] JEFF ([facility]) Body mass index (BMI) [Ratio] 39.4 kg/m2 39.4 k g/m2 JEFF ([facility]) Systolic blood pressure 135 mm[Hg] 135 mm[Hg] A [facility] ([facility]) Body weight 4150 [oz_av] 4150 [oz_av] JEFF ([facility]) Diastolic blood pressure 94 mm[Hg] 94 mm[Hg] JEFF ([facility]) Body height 68 [in_i] 68 [in_i] JEFF ([facility]) Body mass index (BMI) [Ratio] 39.4 kg/m2 39.4 k g/m2 JEFF ([facility]) Systolic blood pressure 135 mm[Hg] 135 mm[Hg] [facility] Body weight 4150 [oz_av] 4150 [oz_av] JEFF ([facility]) Diastolic blood pressure 94 mm[Hg] 94 mm[Hg] JEFF ([facility]) Body height 68 [in_i] 68 [in_i] JEFF ([facility]) Body mass index (BMI) [Ratio] 39.4 kg/m2 39.4 k g/m2 JEFF ([facility]) Systolic blood pressure 135 mm[Hg] 135 mm[Hg] A [facility] ([facility]) Body weight 4150 [oz_av] 4150 [oz_av] JEFF ([facility]) Diastolic blood pressure 88 mm[Hg] 88 mm[Hg] JEFF ([facility]) Body height 68 [in_i] 68 [in_i] JEFF ([facility]) Body mass index (BMI) [Ratio] 39.4 kg/m2 39.4 k g/m2 JEFF ([facility]) Systolic blood pressure 129 mm[Hg] 129 mm[Hg] A [facility] ([facility]) Body weight 4150 [oz_av] 4150 [oz_av] JEFF ([facility]) Systolic blood pressure 129 mm[Hg] 129 mm[Hg] [facility] Diastolic blood pressure 88 mm[Hg] 88 mm[Hg] JEFF ([facility]) Body height 68 [in_i] 68 [in_i] JEFF ([facility]) Body mass index (BMI) [Ratio] 39.4 kg/m2 39.4 k g/m2 JEFF ([facility]) Body weight 4150 [oz_av] 4150 [oz_av] JEFF ([facility]) Diastolic blood pressure 88 mm[Hg] 88 mm[Hg] JEFF ([facility]) Body height 68 [in_i] 68 [in_i] JEFF ([facility]) Body mass index (BMI) [Ratio] 39.4 kg/m2 39.4 k g/m2 JEFF ([facility]) Systolic blood pressure 129 mm[Hg] 129 mm[Hg] A [facility] ([facility]) Body weight 4150 [oz_av] 4150 [oz_av] JEFF ([facility]) Diastolic blood pressure 88 mm[Hg] 88 mm[Hg] JEFF ([facility]) Body height 68 [in_i] 68 [in_i] JEFF ([facility]) Body mass index (BMI) [Ratio] 39.4 kg/m2 39.4 k g/m2 JEFF ([facility]) Systolic blood pressure 129 mm[Hg] 129 mm[Hg] A [facility] ([facility]) Body weight 4150 [oz_av] 4150 [oz_av] JEFF ([facility]) Diastolic blood pressure 88 mm[Hg] 88 mm[Hg] JEFF ([facility]) Body height 68 [in_i] 68 [in_i] JEFF ([facility]) Body mass index (BMI) [Ratio] 39.4 kg/m2 39.4 k g/m2 JEFF ([facility]) Systolic blood pressure 129 mm[Hg] 129 mm[Hg] A [facility] ([facility]) Body weight 4150 [oz_av] 4150 [oz_av] JEFF ([facility]) Diastolic blood pressure 88 mm[Hg] 88 mm[Hg] JEFF ([facility]) Body height 68 [in_i] 68 [in_i] JEFF ([facility]) Body mass index (BMI) [Ratio] 39.4 kg/m2 39.4 k g/m2 JEFF ([facility]) Systolic blood pressure 129 mm[Hg] 129 mm[Hg] [facility] Body weight 4150 [oz_av] 4150 [oz_av] JEFF ([facility]) Body weight 172.00 [lb_av] 172.00 [lb_av] MEDEN T ([facility] Heart rate 85 /min 85 /min MEDENT ([facility] Systolic blood pressure 123 mm[Hg] 123 mm[Hg] M EDENT ([facility] Diastolic blood pressure 82 mm[Hg] 82 mm[Hg] MEDENT ([facility] Diastolic blood pressure 82 mm[Hg] 82 mm[Hg] JEFF ([facility]) Body height 68 [in_i] 68 [in_i] JEFF ([facility]) Body mass index (BMI) [Ratio] 39.4 kg/m2 39.4 k g/m2 [facility] [facility] Systolic blood pressure 123 mm[Hg] 123 mm[Hg] A THENA ([facility]) Body weight 4150 [oz_av] 4150 [oz_av] JEFF ([facility]) Diastolic blood pressure 82 mm[Hg] 82 mm[Hg] JEFF ([facility]) Body height 68 [in_i] 68 [in_i] JEFF ([facility]) Body mass index (BMI) [Ratio] 39.4 kg/m2 39.4 k g/m2 JEFF ([facility]) Systolic blood pressure 123 mm[Hg] 123 mm[Hg] A THENA ([facility]) Body weight 4150 [oz_av] 4150 [oz_av] JEFF ([facility]) Diastolic blood pressure 82 mm[Hg] 82 mm[Hg] JEFF ([facility]) Body height 68 [in_i] 68 [in_i] JEFF ([facility]) Body mass index (BMI) [Ratio] 39.4 kg/m2 39.4 k g/m2 JEFF ([facility]) Systolic blood pressure 123 mm[Hg] 123 mm[Hg] [facility] Body weight 4150 [oz_av] 4150 [oz_av] JEFF ([facility]) Diastolic blood pressure 82 mm[Hg] 82 mm[Hg] JEFF ([facility]) Body height 68 [in_i] 68 [in_i] JEFF ([facility]) Body mass index (BMI) [Ratio] 39.4 kg/m2 39.4 k g/m2 JEFF ([facility]) Systolic blood pressure 123 mm[Hg] 123 mm[Hg] [facility] Body weight 4150 [oz_av] 4150 [oz_av] JEFF ([facility]) Systolic blood pressure 123 mm[Hg] 123 mm[Hg] [facility] Body weight 4150 [oz_av] 4150 [oz_av] JEFF ([facility]) Diastolic blood pressure 82 mm[Hg] [...] blood pressure 123 mm[Hg] 123 mm[Hg] [facility] Body weight 4150 [oz_av] 4150 [oz_av] JEFF ([facility]) Body height 68 [in_i] 68 [in_i] JEFF ([facility]) Body mass index (BMI) [Ratio] 39.4 kg/m2 39.4 k g/m2 JEFF ([facility]) Systolic blood pressure 123 mm[Hg] 123 mm[Hg] [facility] Body weight 4150 [oz_av] 4150 [oz_av] JEFF ([facility]) Diastolic blood pressure 82 mm[Hg] [...] JEFF ([facility]) Body height 0.00 in Normal (applies to non-numeric resu lts) 0.00 in [facility] ([facility]) Body mass index (BMI) [Ratio] 0.00 kg/m2 No rmal (applies to non-numeric results) 0.00 kg/m2 [facility] ([facility]) Body weight Measured 0.00 lbs Normal (applies to n on-numeric results) 0.00 lbs [facility] ([facility]) Diastolic blood pressure 0 mm[Hg] Normal (applies to non-numeric results) 0 mm[Hg] [facility] ([facility]) Systolic blood pressure 0 mm[Hg] Normal (applies t o non-numeric results) 0 mm[Hg] [facility] ([facility]) Body weight 257 [lb_av] 257 [lb_av] eCW1 ([facility]) Body height 68 [in_i] 68 [in_i] eCW1 ([facility]) Body mass index (BMI) [Ratio] 39.07 kg/m2 39.07 kg/m2 eCW1 ([facility]) Body weight 258.50 [lb_av] 258.50 [lb_av] MEDEN T ([facility]) Oxygen saturation in Arterial blood by Pulse oximetry 92 % 92 % MEDENT ([facility]) Systolic blood pressure 110 mm[Hg] 110 mm[Hg] M EDENT ([facility]) Diastolic blood pressure 78 mm[Hg] 78 mm[Hg] MEDENT ([facility]) Heart rate 90 /min 90 /min MEDENT ([facility]) Body temperature 97.1 [degF] 97.1 [degF] MEDENT ([facility]) Body height 68 [in_i] 68 [in_i] MEDENT ([facility] ) 5'8" Body mass index (BMI) [Ratio] 39.3 kg/m2 39.3 k g/m2 MEDENT ([facility] ) Body weight 3334 [oz_av] 3334 [oz_av] JEFF ([facility]) Diastolic blood pressure 85 mm[Hg] [...] weight 3334 [oz_av] 3334 [oz_av] JEFF ([facility]) Diastolic blood pressure 85 mm[Hg] 85 mm[Hg] JEFF ([facility]) Body height 68 [in_i] 68 [in_i] JEFF ([facility]) Body mass index (BMI) [Ratio] 31.7 kg/m2 31.7 k g/m2 JEFF ([facility]) Systolic blood pressure 121 mm[Hg] 121 mm[Hg] A THENA ([facility]) Body weight 3334 [oz_av] 3334 [oz_av] JEFF ([facility]) Diastolic blood pressure 85 mm[Hg] 85 mm[Hg] JEFF ([facility]) Body height 68 [in_i] 68 [in_i] JEFF ([facility]) Body mass index (BMI) [Ratio] 31.7 kg/m2 31.7 k g/m2 JEFF ([facility]) Systolic blood pressure 121 mm[Hg] 121 mm[Hg] [facility] Body weight 3334 [oz_av] 3334 [oz_av] JEFF ([facility]) Diastolic blood pressure 85 mm[Hg] 85 mm[Hg] JEFF ([facility]) Body height 68 [in_i] 68 [in_i] JEFF ([facility]) Body mass index (BMI) [Ratio] 31.7 kg/m2 31.7 k g/m2 JEFF ([facility]) Systolic blood pressure 121 mm[Hg] 121 mm[Hg] A THENA ([facility]) Body weight 3334 [oz_av] 3334 [oz_av] JEFF ([facility]) Diastolic blood pressure 85 mm[Hg] 85 mm[Hg] JEFF ([facility]) Body height 68 [in_i] 68 [in_i] JEFF ([facility]) Body mass index (BMI) [Ratio] 31.7 kg/m2 31.7 k g/m2 JEFF ([facility]) Systolic blood pressure 121 mm[Hg] 121 mm[Hg] A THENA ([facility]) Body weight 3334 [oz_av] 3334 [oz_av] JEFF ([facility]) Diastolic blood pressure 85 mm[Hg] 85 mm[Hg] JEFF ([facility]) Body height 68 [in_i] 68 [in_i] JEFF ([facility]) Body mass index (BMI) [Ratio] 31.7 kg/m2 31.7 k g/m2 JEFF ([facility]) Systolic blood pressure 121 mm[Hg] 121 mm[Hg] A THENA ([facility]) Body weight 3334 [oz_av] 3334 [oz_av] JEFF ([facility]) Diastolic blood pressure 85 mm[Hg] 85 mm[Hg] JEFF ([facility]) Body height 68 [in_i] 68 [in_i] JEFF ([facility]) Body mass index (BMI) [Ratio] 31.7 kg/m2 31.7 k g/m2 JEFF ([facility]) Systolic blood pressure 121 mm[Hg] 121 mm[Hg] [facility] Body weight 3334 [oz_av] 3334 [oz_av] JEFF ([facility]) Body height 68 [in_i] 68 [in_i] JEFF ([facility]) Systolic blood pressure 121 mm[Hg] 121 mm[Hg] A THENA ([facility]) Diastolic blood pressure 85 mm[Hg] 85 mm[Hg] JEFF ([facility]) Body weight 3334 [oz_av] 3334 [oz_av] JEFF ([facility]) Body mass index (BMI) [Ratio] 31.7 [...] weight 3334 [oz_av] 3334 [oz_av] JEFF ([facility]) Diastolic blood pressure 85 mm[Hg] 85 mm[Hg] JEFF ([facility]) Body height 68 [in_i] 68 [in_i] JEFF ([facility]) Body mass index (BMI) [Ratio] 31.7 kg/m2 31.7 k g/m2 JEFF ([facility]) Systolic blood pressure 121 mm[Hg] 121 mm[Hg] A HARISA ([facility]) Body weight 3334 [oz_av] 3334 [oz_av] JEFF ([facility]) Diastolic blood pressure 85 mm[Hg] 85 mm[Hg] JEFF ([facility]) Body height 68 [in_i] 68 [in_i] JEFF ([facility]) Body mass index (BMI) [Ratio] 31.7 kg/m2 31.7 k g/m2 JEFF ([facility]) Systolic blood pressure 121 mm[Hg] 121 mm[Hg] A HARISA ([facility]) Body weight 3334 [oz_av] 3334 [oz_av] JEFF ([facility]) Body weight 260.6 [lb_av] 260.6 [lb_av] eCW1 ([facility]) Body height 68 [in_i] 68 [in_i] eCW1 ([facility]) Body mass index (BMI) [Ratio] 39.62 kg/m2 39.62 kg/m2 W1 ([facility]) Body height 0.00 in Normal (applies to non-numeric resu lts) 0.00 in [facility] ([facility]) Body weight Measured 0.00 lbs Normal (applies to n on-numeric results) 0.00 lbs [facility] ([facility]) Body mass index (BMI) [Ratio] 0.00 kg/m2 No rmal (applies to non-numeric results) 0.00 kg/m2 [facility] ([facility]) Systolic blood pressure 0 mm[Hg] Normal (applies t o non-numeric results) 0 mm[Hg] [facility] ([facility]) Diastolic blood pressure 0 mm[Hg] Normal (applies to non-numeric results) 0 mm[Hg] [facility] ([facility]) Body temperature 96.4 [degF] 96.4 [degF] MEDENT ([facility]) Diastolic blood pressure 84 mm[Hg] 84 mm[Hg] MEDENT ([facility]) Heart rate 87 /min 87 /min MEDENT ([facility]) Body weight 263.31 [lb_av] 263.31 [lb_av] MEDEN T ([facility]) Body mass index (BMI) [Ratio] 40.0 kg/m2 40.0 k g/m2 MEDENT ([facility]) Oxygen saturation in Arterial blood by Pulse oximetry 97 % 97 % MEDENT ([facility]) Systolic blood pressure 122 mm[Hg] 122 mm[Hg] M EDENT ([facility]) Body height 68 [in_i] 68 [in_i] MEDENT ([facility]) 5'8" Body height 68 [in_i] 68 [in_i] JEFF ([facility]) Body mass index (BMI) [Ratio] 40 kg/m2 40 kg/ m2 JEFF ([facility]) Diastolic blood pressure 78 mm[Hg] 78 mm[Hg] JEFF ([facility]) Systolic blood pressure 115 mm[Hg] 115 mm[Hg] A [facility] ([facility]) Body weight 4208 [oz_av] 4208 [oz_av] JEFF ([facility]) Diastolic blood pressure 78 mm[Hg] 78 mm[Hg] JEFF ([facility]) Body height 68 [in_i] 68 [in_i] JEFF ([facility]) Body mass index (BMI) [Ratio] 40 kg/m2 40 kg/ m2 JEFF ([facility]) Systolic blood pressure 115 mm[Hg] 115 mm[Hg] [facility] Body weight 4208 [oz_av] 4208 [oz_av] JEFF ([facility]) Diastolic blood pressure 78 mm[Hg] 78 mm[Hg] JEFF ([facility]) Body height 68 [in_i] 68 [in_i] JEFF ([facility]) Body mass index (BMI) [Ratio] 40 kg/m2 40 kg/ m2 JEFF ([facility]) Systolic blood pressure 115 mm[Hg] 115 mm[Hg] [facility] Body weight 4208 [oz_av] 4208 [oz_av] JEFF ([facility]) Diastolic blood pressure 78 mm[Hg] 78 mm[Hg] JEFF ([facility]) Body height 68 [in_i] 68 [in_i] JEFF ([facility]) Body mass index (BMI) [Ratio] 40 kg/m2 40 kg/ m2 JEFF ([facility]) Systolic blood pressure 115 mm[Hg] 115 mm[Hg] A THENA ([facility]) Body weight 4208 [oz_av] 4208 [oz_av] JEFF ([facility]) Diastolic blood pressure 78 mm[Hg] 78 mm[Hg] JEFF ([facility]) Body height 68 [in_i] 68 [in_i] JEFF ([facility]) Body mass index (BMI) [Ratio] 40 kg/m2 40 kg/ m2 JEFF ([facility]) Systolic blood pressure 115 mm[Hg] 115 mm[Hg] [facility] Body weight 4208 [oz_av] 4208 [oz_av] JEFF ([facility]) Body mass index (BMI) [Ratio] 40 kg/m2 40 kg/ m2 JEFF ([facility]) Diastolic blood pressure 78 mm[Hg] 78 mm[Hg] JEFF ([facility]) Body height 68 [in_i] 68 [in_i] JEFF ([facility]) Systolic blood pressure 115 mm[Hg] 115 mm[Hg] A THENA ([facility]) Body weight 4208 [oz_av] 4208 [oz_av] JEFF ([facility]) Diastolic blood pressure 78 mm[Hg] 78 mm[Hg] JEFF ([facility]) Body height 68 [in_i] 68 [in_i] JEFF ([facility]) Body mass index (BMI) [Ratio] 40 kg/m2 40 kg/ m2 JEFF ([facility]) Systolic blood pressure 115 mm[Hg] 115 mm[Hg] A THENA ([facility]) Body weight 4208 [oz_av] 4208 [oz_av] JEFF ([facility]) Diastolic blood pressure 78 mm[Hg] 78 mm[Hg] JEFF ([facility]) Body height 68 [in_i] 68 [in_i] JEFF ([facility]) Body mass index (BMI) [Ratio] 40 kg/m2 40 kg/ m2 JEFF ([facility]) Systolic blood pressure 115 mm[Hg] 115 mm[Hg] [facility] Body weight 4208 [oz_av] 4208 [oz_av] JEFF ([facility]) Diastolic blood pressure 78 mm[Hg] 78 mm[Hg] JEFF ([facility]) Body height 68 [in_i] 68 [in_i] JEFF ([facility]) Body mass index (BMI) [Ratio] 40 kg/m2 40 kg/ m2 JEFF ([facility]) Systolic blood pressure 115 mm[Hg] 115 mm[Hg] [facility] Body weight 4208 [oz_av] 4208 [oz_av] JEFF ([facility]) Diastolic blood pressure 78 mm[Hg] 78 mm[Hg] JEFF ([facility]) Body height 68 [in_i] 68 [in_i] JEFF ([facility]) Body mass index (BMI) [Ratio] 40 kg/m2 40 kg/ m2 JEFF ([facility]) Systolic blood pressure 115 mm[Hg] 115 mm[Hg] A THENA ([facility]) Body weight 4208 [oz_av] 4208 [oz_av] JEFF ([facility]) Diastolic blood pressure 78 mm[Hg] 78 mm[Hg] JEFF ([facility]) Body height 68 [in_i] 68 [in_i] JEFF ([facility]) Body mass index (BMI) [Ratio] 40 kg/m2 40 kg/ m2 JEFF ([facility]) Systolic blood pressure 115 mm[Hg] 115 mm[Hg] [facility] Body weight 4208 [oz_av] 4208 [oz_av] JEFF ([facility]) Diastolic blood pressure 78 mm[Hg] 78 mm[Hg] JEFF ([facility]) Body height 68 [in_i] 68 [in_i] JEFF ([facility]) Body mass index (BMI) [Ratio] 40 kg/m2 40 kg/ m2 JEFF ([facility]) Systolic blood pressure 115 mm[Hg] 115 mm[Hg] A THENA ([facility]) Body weight 4208 [oz_av] 4208 [oz_av] JEFF ([facility]) Diastolic blood pressure 78 mm[Hg] 78 mm[Hg] JEFF ([facility]) Body height 68 [in_i] 68 [in_i] JEFF ([facility]) Body mass index (BMI) [Ratio] 40 kg/m2 40 kg/ m2 JEFF ([facility]) Systolic blood pressure 115 mm[Hg] 115 mm[Hg] A THENA ([facility]) Body weight 4208 [oz_av] 4208 [oz_av] JEFF ([facility]) Diastolic blood pressure 78 mm[Hg] 78 mm[Hg] JEFF ([facility]) Body height 68 [in_i] 68 [in_i] JEFF ([facility]) Body mass index (BMI) [Ratio] 40 kg/m2 40 kg/ m2 JEFF ([facility]) Systolic blood pressure 115 mm[Hg] 115 mm[Hg] A THENA ([facility]) Body weight 4208 [oz_av] 4208 [oz_av] JEFF ([facility]) Body height 68 [in_i] 68 [in_i] MEDENT ([facility] 5'8" Body weight 260.00 [lb_av] 260.00 [lb_av] MEDEN T ([facility] Systolic blood pressure 125 mm[Hg] 125 mm[Hg] Evaristo GILLIAM ([facility] Diastolic blood pressure 83 mm[Hg] 83 mm[Hg] MEDENT ([facility] Heart rate 92 /min 92 /min MEDENT ([facility] Body mass index (BMI) [Ratio] 39.5 kg/m2 39.5 k g/m2 MEDENT ([facility] Body height 0.00 in Normal (applies to non-numeric resu lts) 0.00 in [facility] ([facility]) Body weight Measured 0.00 lbs Normal (applies to n on-numeric results) 0.00 lbs [facility] ([facility]) Body mass index (BMI) [Ratio] 0.00 kg/m2 No rmal (applies to non-numeric results) 0.00 kg/m2 [facility] ([facility]) Systolic blood pressure 0 mm[Hg] Normal (applies t o non-numeric results) 0 mm[Hg] [facility] ([facility]) Diastolic blood pressure 0 mm[Hg] Normal (applies to non-numeric results) 0 mm[Hg] [facility] ([facility]) Diastolic blood pressure 83 mm[Hg] 83 mm[Hg] TRINIDAD ([facility]) Body height 68 [in_i] 68 [in_i] [place] ([facility]) Body mass index (BMI) [Ratio] 39.6 kg/m2 39.6 k g/m2 JEFF ([facility]) Systolic blood pressure 125 mm[Hg] 125 mm[Hg] A [facility] ([facility]) Body weight 4164 [oz_av] 4164 [oz_av] JEFF ([facility]) Diastolic blood pressure 83 mm[Hg] 83 mm[Hg] JEFF ([facility]) Body height 68 [in_i] 68 [in_i] JEFF ([facility]) Body mass index (BMI) [Ratio] 39.6 kg/m2 39.6 k g/m2 JEFF ([facility]) Systolic blood pressure 125 mm[Hg] 125 mm[Hg] A [facility] ([facility]) Body weight 4164 [oz_av] 4164 [oz_av] JEFF ([facility]) Body mass index (BMI) [Ratio] 39.6 kg/m2 39.6 k g/m2 JEFF ([facility]) Systolic blood pressure 125 mm[Hg] 125 mm[Hg] [facility] Diastolic blood pressure 83 mm[Hg] 83 mm[Hg] JEFF ([facility]) Body height 68 [in_i] 68 [in_i] JEFF ([facility]) Body weight 4164 [oz_av] 4164 [oz_av] JEFF ([facility]) Systolic blood pressure 125 mm[Hg] 125 mm[Hg] A THENA ([facility]) Body weight 4164 [oz_av] 4164 [oz_av] JEFF ([facility]) Diastolic blood pressure 83 mm[Hg] 83 mm[Hg] JEFF ([facility]) Body height 68 [in_i] 68 [in_i] JEFF ([facility]) Body mass index (BMI) [Ratio] 39.6 kg/m2 39.6 k g/m2 JEFF ([facility]) Diastolic blood pressure 83 mm[Hg] 83 mm[Hg] JEFF ([facility]) Body weight 4164 [oz_av] 4164 [oz_av] JEFF ([facility]) Body mass index (BMI) [Ratio] [...] weight 4164 [oz_av] 4164 [oz_av] JEFF ([facility]) Body mass index (BMI) [Ratio] 39.6 kg/m2 39.6 k g/m2 JEFF ([facility]) Systolic blood pressure 125 mm[Hg] 125 mm[Hg] [facility] Body weight 4164 [oz_av] 4164 [oz_av] JEFF ([facility]) Diastolic blood pressure 83 mm[Hg] [...] weight 4164 [oz_av] 4164 [oz_av] JEFF ([facility]) Diastolic blood pressure 83 mm[Hg] 83 mm[Hg] JEFF ([facility]) Body height 68 [in_i] 68 [in_i] JEFF ([facility]) Body mass index (BMI) [Ratio] 39.6 kg/m2 39.6 k g/m2 JEFF ([facility]) Systolic blood pressure 125 mm[Hg] 125 mm[Hg] A THENA ([facility]) Body weight 4164 [oz_av] 4164 [oz_av] JEFF ([facility]) Diastolic blood pressure 83 mm[Hg] 83 mm[Hg] JEFF ([facility]) Body height 68 [in_i] 68 [in_i] JEFF ([facility]) Body mass index (BMI) [Ratio] 39.6 kg/m2 39.6 k g/m2 JEFF ([facility]) Systolic blood pressure 125 mm[Hg] 125 mm[Hg] A THENA ([facility]) Body weight 4164 [oz_av] 4164 [oz_av] JEFF ([facility]) Diastolic blood pressure 83 mm[Hg] 83 mm[Hg] JEFF ([facility]) Body height 68 [in_i] 68 [in_i] JEFF ([facility]) Body mass index (BMI) [Ratio] 39.6 kg/m2 39.6 k g/m2 JEFF ([facility]) Systolic blood pressure 125 mm[Hg] 125 mm[Hg] [facility] Body weight 4164 [oz_av] 4164 [oz_av] JEFF ([facility]) Diastolic blood pressure 83 mm[Hg] 83 mm[Hg] JEFF ([facility]) Body height 68 [in_i] 68 [in_i] JEFF ([facility]) Body mass index (BMI) [Ratio] 39.6 kg/m2 39.6 k g/m2 JEFF ([facility]) Systolic blood pressure 125 mm[Hg] 125 mm[Hg] [facility] Body weight 4164 [oz_av] 4164 [oz_av] JEFF ([facility]) Diastolic blood pressure 83 mm[Hg] 83 mm[Hg] JEFF ([facility]) Body height 68 [in_i] 68 [in_i] JEFF ([facility]) Body mass index (BMI) [Ratio] 39.6 kg/m2 39.6 k g/m2 JEFF ([facility]) Systolic blood pressure 125 mm[Hg] 125 mm[Hg] A THENA ([facility]) Body weight 4164 [oz_av] 4164 [oz_av] JEFF ([facility]) Diastolic blood pressure 83 mm[Hg] 83 mm[Hg] JEFF ([facility]) Body height 68 [in_i] 68 [in_i] JEFF ([facility]) Body mass index (BMI) [Ratio] 39.6 kg/m2 39.6 k g/m2 JEFF ([facility]) Systolic blood pressure 125 mm[Hg] 125 mm[Hg] [facility] Body weight 4164 [oz_av] 4164 [oz_av] JEFF ([facility]) Diastolic blood pressure 83 mm[Hg] 83 mm[Hg] JEFF ([facility]) Body height 68 [in_i] 68 [in_i] JEFF ([facility]) Body mass index (BMI) [Ratio] 39.6 kg/m2 39.6 k g/m2 JEFF ([facility]) Systolic blood pressure 125 mm[Hg] 125 mm[Hg] A THENA ([facility]) Body weight 4164 [oz_av] 4164 [oz_av] JEFF ([facility]) Body weight Measured 0.00 lbs Normal (applies to n on-numeric results) [facility] Body mass index (BMI) [Ratio] 0.00 kg/m2 No rmal (applies to non-numeric results) 0.00 kg/m2 [facility] ([facility]) Systolic blood pressure 142 mm[Hg] Normal (applies t o non-numeric results) 142 mm[Hg] [facility] ([facility]) Diastolic blood pressure 78 mm[Hg] Normal (applies to non-numeric results) 78 mm[Hg] [facility] ([facility]) Body height 0.00 in Normal (applies to non-numeric resu lts) 0.00 in [facility] ([facility]) Systolic blood pressure 126 mm[Hg] 126 mm[Hg] M EDENT ([facility] Diastolic blood pressure 70 mm[Hg] 70 mm[Hg] MEDENT ([facility] ) Heart rate 77 /min 77 /min MEDENT ([facility]) Oxygen saturation in Arterial blood by Pulse oximetry 98 % 98 % MEDENT ([facility] ) Body temperature 97.8 [degF] 97.8 [degF] MEDENT ([facility] ) Body height 68 [in_i] 68 [in_i] MEDENT ([facility] 5'8" Body weight 268.44 [lb_av] 268.44 [lb_av] MEDEN T ([facility] ) Body mass index (BMI) [Ratio] 40.8 kg/m2 40.8 k g/m2 MEDENT ([facility] ) Diastolic blood pressure 88 mm[Hg] 88 mm[Hg] JEFF ([facility]) Body height 68 [in_i] 68 [in_i] JEFF ([facility]) Body mass index (BMI) [Ratio] 40 kg/m2 40 kg/ m2 JEFF ([facility]) Systolic blood pressure 124 mm[Hg] 124 mm[Hg] A [facility] ([facility]) Body weight 4214 [oz_av] 4214 [oz_av] JEFF ([facility]) Diastolic blood pressure 88 mm[Hg] 88 mm[Hg] JEFF ([facility]) Body height 68 [in_i] 68 [in_i] JEFF ([facility]) Body mass index (BMI) [Ratio] 40 kg/m2 40 kg/ m2 EJFF ([facility]) Systolic blood pressure 124 mm[Hg] 124 mm[Hg] A [facility] ([facility]) Body weight 4214 [oz_av] 4214 [oz_av] JEFF ([facility]) Diastolic blood pressure 88 mm[Hg] 88 mm[Hg] JEFF ([facility]) Body height 68 [in_i] 68 [in_i] JEFF ([facility]) Body mass index (BMI) [Ratio] 40 kg/m2 40 kg/ m2 JEFF ([facility]) Systolic blood pressure 124 mm[Hg] 124 mm[Hg] A [facility] ([facility]) Body weight 4214 [oz_av] 4214 [oz_av] JEFF ([facility]) Diastolic blood pressure 88 mm[Hg] 88 mm[Hg] JEFF ([facility]) Body height 68 [in_i] 68 [in_i] JEFF ([facility]) Body mass index (BMI) [Ratio] 40 kg/m2 40 kg/ m2 JEFF ([facility]) Systolic blood pressure 124 mm[Hg] 124 mm[Hg] A [facility] ([facility]) Body weight 4214 [oz_av] 4214 [oz_av] JEFF [facility] [facility]) Diastolic blood pressure 88 mm[Hg] 88 mm[Hg] JEFF ([facility]) Body height 68 [in_i] 68 [in_i] JEFF ([facility]) Body mass index (BMI) [Ratio] 40 kg/m2 40 kg/ m2 JEFF ([facility]) Systolic blood pressure 124 mm[Hg] 124 mm[Hg] [facility] Body weight 4214 [oz_av] 4214 [oz_av] JEFF ([facility]) Diastolic blood pressure 88 mm[Hg] 88 mm[Hg] JEFF ([facility]) Body height 68 [in_i] 68 [in_i] JEFF ([facility]) Body mass index (BMI) [Ratio] 40 kg/m2 40 kg/ m2 JEFF ([facility]) Systolic blood pressure 124 mm[Hg] 124 mm[Hg] A [facility] ([facility]) Body weight 4214 [oz_av] 4214 [oz_av] JEFF ([facility]) Body mass index (BMI) [Ratio] 40 kg/m2 40 kg/ m2 JEFF ([facility]) Systolic blood pressure 124 mm[Hg] 124 mm[Hg] A THENA ([facility]) Body weight 4214 [oz_av] 4214 [oz_av] JEFF ([facility]) Diastolic blood pressure 88 mm[Hg] [...] blood pressure 124 mm[Hg] 124 mm[Hg] [facility] Body weight 4214 [oz_av] 4214 [oz_av] JEFF ([facility]) Diastolic blood pressure 88 mm[Hg] 88 mm[Hg] JEFF ([facility]) Body height 68 [in_i] 68 [in_i] JEFF ([facility]) Body weight 4214 [oz_av] 4214 [oz_av] JEFF ([facility]) Body mass index (BMI) [Ratio] 40 kg/m2 40 kg/ m2 JEFF ([facility]) Systolic blood pressure 124 mm[Hg] 124 mm[Hg] [facility]) Diastolic blood pressure 88 mm[Hg] 88 mm[Hg] JEFF ([facility]) Body height 68 [in_i] 68 [in_i] JEFF ([facility]) Body mass index (BMI) [Ratio] 40 kg/m2 40 kg/ m2 JEFF ([facility]) Systolic blood pressure 124 mm[Hg] 124 mm[Hg] A THENA ([facility]) Body weight 4214 [oz_av] 4214 [oz_av] JEFF ([facility]) Diastolic blood pressure 88 mm[Hg] 88 mm[Hg] JEFF ([facility]) Body height 68 [in_i] 68 [in_i] JEFF ([facility]) Body mass index (BMI) [Ratio] 40 kg/m2 40 kg/ m2 JEFF ([facility]) Systolic blood pressure 124 mm[Hg] 124 mm[Hg] A THENA ([facility]) Body weight 4214 [oz_av] 4214 [oz_av] JEFF ([facility]) Diastolic blood pressure 88 mm[Hg] 88 mm[Hg] JEFF ([facility]) Body height 68 [in_i] 68 [in_i] JEFF ([facility]) Body mass index (BMI) [Ratio] 40 kg/m2 40 kg/ m2 JEFF ([facility]) Systolic blood pressure 124 mm[Hg] 124 mm[Hg] A THENA ([facility]) Body weight 4214 [oz_av] 4214 [oz_av] JEFF ([facility]) Diastolic blood pressure 88 mm[Hg] 88 mm[Hg] JEFF ([facility]) Body height 68 [in_i] 68 [in_i] JEFF ([facility]) Body mass index (BMI) [Ratio] 40 kg/m2 40 kg/ m2 JEFF ([facility]) Systolic blood pressure 124 mm[Hg] 124 mm[Hg] A THENA ([facility]) Body weight 4214 [oz_av] 4214 [oz_av] JEFF ([facility]) Body weight 4214 [oz_av] 4214 [oz_av] JEFF ([facility]) Diastolic blood pressure 88 mm[Hg] 88 mm[Hg] JEFF ([facility]) Body height 68 [in_i] 68 [in_i] JEFF ([facility]) Body mass index (BMI) [Ratio] 40 kg/m2 40 kg/ m2 JEFF ([facility]) Systolic blood pressure 124 mm[Hg] 124 mm[Hg] [facility]) Diastolic blood pressure 88 mm[Hg] 88 mm[Hg] JEFF ([facility]) Body height 68 [in_i] 68 [in_i] JEFF ([facility]) Body mass index (BMI) [Ratio] 40 kg/m2 40 kg/ m2 JEFF ([facility]) Systolic blood pressure 124 mm[Hg] 124 mm[Hg] A THENA ([facility]) Body weight 4214 [oz_av] 4214 [oz_av] JEFF ([facility]) Diastolic blood pressure 88 mm[Hg] 88 mm[Hg] JEFF ([facility]) Body height 68 [in_i] 68 [in_i] JEFF ([facility]) Body mass index (BMI) [Ratio] 40 kg/m2 40 kg/ m2 JEFF ([facility]) Systolic blood pressure 124 mm[Hg] 124 mm[Hg] A THENA ([facility]) Body weight 4214 [oz_av] 4214 [oz_av] JEFF ([facility]) Diastolic blood pressure 88 mm[Hg] 88 mm[Hg] JEFF ([facility]) Body height 68 [in_i] 68 [in_i] JEFF ([facility]) Body mass index (BMI) [Ratio] 40 kg/m2 40 kg/ m2 JEFF ([facility]) Systolic blood pressure 124 mm[Hg] 124 mm[Hg] A THENA ([facility]) Body weight 4214 [oz_av] 4214 [oz_av] JEFF ([facility]) Diastolic blood pressure 83 mm[Hg] [...] blood pressure 134 mm[Hg] 134 mm[Hg] [facility]) Diastolic blood pressure [...] blood pressure 134 mm[Hg] 134 mm[Hg] [facility]) Body weight 4226.08 [oz_av] 4226.08 [oz_av] ATH ALVARO ([facility]) Diastolic blood pressure 83 mm[Hg] 83 mm[Hg] JEFF ([facility]) Body height 68 [in_i] 68 [in_i] JEFF ([facility]) Body mass index (BMI) [Ratio] 40.31 kg/m2 40.31 kg/m2 JEFF ([facility]) Systolic blood pressure 134 mm[Hg] 134 mm[Hg] A [facility] ([facility]) Body weight 4226.08 [oz_av] 4226.08 [oz_av] ATH ALVARO ([facility]) Body mass index (BMI) [Ratio] 40.31 kg/m2 40.31 kg/m2 JEFF ([facility]) Systolic blood pressure 134 mm[Hg] 134 mm[Hg] [facility]) Body weight 4226.08 [...] blood pressure 134 mm[Hg] 134 mm[Hg] A [facility] ([facility]) Body weight 4226.08 [oz_av] 4226.08 [oz_av] ATH ALVARO ([facility]) Body height 0.00 in Normal (applies to non-numeric resu lts) 0.00 in Accumedic ([facility]) Body weight Measured 0.00 lbs Normal (applies to n on-numeric results) 0.00 lbs Accumedic ([facility]) Body mass index (BMI) [Ratio] 0.00 kg/m2 No rmal (applies to non-numeric results) 0.00 kg/m2 Accumed[facility] ([facility]) Systolic blood pressure 0 mm[Hg] Normal (applies t o non-numeric results) 0 mm[Hg] Accumedic ([facility]) Diastolic blood pressure 0 mm[Hg] Normal (applies to non-numeric results) 0 mm[Hg] Accumedic ([facility]) Body height 68 [in_i] 68 [in_i] MEDENT ([facility] ) 5'8" Body temperature 97.7 [degF] 97.7 [degF] MEDENT ([facility] ) Body weight 260.00 [lb_av] 260.00 [lb_av] MEDEN T ([facility] ) Body mass index (BMI) [Ratio] 39.5 kg/m2 39.5 k g/m2 MEDENT ([facility] ) Patient Treatment Plan of Care Planned Activity Planned Date Details Description Data Source (s) Alcohol Prep Pads 06/20/2021 12:00:00 AM EDT JEFF ([facility]) ziprasidone 60 MG Oral Capsule TRINIDAD ([facility]) Ergocalciferol 31295 UNT Oral Capsule TRINIDAD ([facility]) 0.5 ML dulaglutide 1.5 MG/ML Auto-Injector [Trulicity] JEFF ([facility]) Triamcinolone Acetonide 1 MG/ML Topical Cream JEFF ([facility]) Trazodone Hydrochloride 50 MG Oral Tablet JEFF ([facility]) Steglatro 5 mg tablet TRINIDAD ([facility]) Simvastatin 10 MG Oral Tablet JEFF ([facility]) Docusate Sodium 50 MG / sennosides, NURSING HOME 8.6 MG Oral Tablet JEFF ([facility]) sennosides 8.6 mg-docusate sodium 50 mg capsule Take 2 capsules by oral route at bedtime. JEFF ([facility]) sennosides, NURSING HOME 8.6 MG Oral Tablet [Senna-Time] [facility]FF ([facility] [place] Capsule JEFF ([facility]) Ergocalciferol 84435 UNT Oral Capsule JEFF ([facility]) 0.5 ML dulaglutide 1.5 MG/ML Auto-Injector [Trulicity] JEFF ([facility]) Triamcinolone Acetonide 1 MG/ML Topical Cream JEFF ([facility]) Steglatro 5 mg tablet JEFF ([facility]) Simvastatin 10 MG Oral Tablet JEFF ([facility]) Docusate Sodium 50 MG / sennosides, NURSING HOME 8.6 MG Oral Tablet JEFF ([facility]) sennosides 8.6 mg-docusate sodium 50 mg capsule Take 2 capsules by oral route at bedtime. JEFF ([facility]) sennosides, NURSING HOME 8.6 MG Oral Tablet [Senna-Time] JEFF ([facility]) Propranolol Hydrochloride 20 MG Oral Tablet JEFF ([facility]) Prazosin 1 MG Oral Capsule A THENA ([facility]) OneTouch Verio Flex Meter AT [facility] ([facility]) OneTouch Delica [...] Capsule JEFF ([facility]) Ergocalciferol 41640 UNT Oral Capsule JEFF ([facility]) 0.5 ML dulaglutide 1.5 MG/ML Auto-Injector [Trulicity] JEFF ([facility]) Triamcinolone Acetonide 1 MG/ML Topical Cream JEFF ([facility]) Steglatro 5 mg tablet JEFF ([facility]) Simvastatin 10 MG Oral Tablet JEFF ([facility]) Docusate Sodium 50 MG / sennosides, NURSING HOME 8.6 MG Oral Tablet JEFF ([facility]) sennosides 8.6 mg-docusate sodium 50 mg capsule Take 2 capsules by oral route at bedtime. JEFF ([facility]) sennosides, NURSING HOME 8.6 MG Oral Tablet [Senna-Time] JEFF ([facility] [...] Capsule JEFF ([facility]) Ergocalciferol 02701 UNT Oral Capsule JEFF ([facility]) 0.5 ML dulaglutide 1.5 MG/ML Auto-Injector [Trulicity] JEFF ([facility]) Triamcinolone Acetonide 1 MG/ML Topical Cream JEFF ([facility]) Steglatro 5 mg tablet JEFF ([facility]) Simvastatin 10 MG Oral Tablet JEFF ([facility]) Docusate Sodium 50 MG / sennosides, NURSING HOME 8.6 MG Oral Tablet JEFF ([facility]) sennosides 8.6 mg-docusate sodium 50 mg capsule Take 2 capsules by oral route at bedtime. JEFF ([facility]) sennosides, NURSING HOME 8.6 MG Oral Tablet [Senna-Time] JEFF ([facility]) Propranolol Hydrochloride 20 MG Oral Tablet JEFF ([facility]) Prazosin 1 MG Oral Capsule A [facility] ([facility]) OneTouch Verio Flex Meter AT [facility] ([facility]) OneTouch Delica Plus Lancet 33 gauge JEFF ([facility]) Mirtazapine 45 MG Oral Tablet JEFF ([facility]) Mirtazapine 15 MG Oral Tablet JEFF ([facility]) lamotrigine 25 MG Oral Tablet JEFF ([facility]) ziprasidone 60 MG Oral Capsule JEFF ([facility]) Ergocalciferol 85435 UNT Oral Capsule JEFF [facility]) Docusate Sodium 50 MG / sennosides, NURSING HOME 8.6 MG Oral Tablet JEFF ([facility]) sennosides 8.6 mg-docusate sodium 50 mg capsule Take 2 capsules by oral route at bedtime. JEFF ([facility]) sennosides, NURSING HOME 8.6 MG Oral Tablet [Senna-Time] JEFF ([facility]) Propranolol Hydrochloride 20 MG Oral Tablet JEFF ([facility]) Prazosin 1 MG Oral Capsule A THENA ([facility]) OneTouch Verio test strips USE UP TO TWO TIMES A DAY DIRECTED JEFF ([facility]) OneTouch Verio Flex Meter AT [facility] ([facility]) OneTouch Delica Plus Lancet 33 gauge JEFF ([facility]) Mirtazapine 45 MG Oral Tablet JEFF ([facility]) Mirtazapine 15 MG Oral Tablet JEFF ([facility]) ziprasidone 60 MG Oral Capsule JEFF ([facility]) Ergocalciferol 27334 UNT Oral Capsule JEFF [facility]) Docusate Sodium 50 MG / sennosides, NURSING HOME 8.6 MG Oral Tablet JEFF ([facility]) sennosides 8.6 mg-docusate sodium 50 mg capsule Take 2 capsules by oral route at bedtime. JEFF ([facility]) sennosides, NURSING HOME 8.6 MG Oral Tablet [Senna-Time] JEFF ([facility]) Propranolol Hydrochloride 20 MG Oral Tablet JEFF ([facility]) Prazosin 1 MG Oral Capsule A THENA ([facility]) OneTouch Verio test strips USE UP TO TWO TIMES A DAY DIRECTED JEFF ([facility]) OneTouch Verio Flex Meter AT [facility] ([facility]) OneTouch Delica [...] Capsule JEFF ([facility]) Ergocalciferol 73586 UNT Oral Capsule JEFF ([facility]) 0.5 ML dulaglutide 1.5 MG/ML Auto-Injector [Trulicity] JEFF ([facility]) Triamcinolone Acetonide 1 MG/ML Topical Cream JEFF ([facility]) Steglatro 5 mg tablet JEFF ([facility]) Simvastatin 10 MG Oral Tablet JEFF ([facility]) Docusate Sodium 50 MG / sennosides, NURSING HOME 8.6 MG Oral Tablet JEFF ([facility]) sennosides 8.6 mg-docusate sodium 50 mg capsule Take 2 capsules by oral route at bedtime. JEFF ([facility]) sennosides, NURSING HOME 8.6 MG Oral Tablet [Senna-Time] JEFF ([facility]) Propranolol Hydrochloride 20 MG Oral Tablet JEFF ([facility]) Prazosin 1 MG Oral Capsule A THENA ([facility]) OneTouch Verio Flex Meter AT [facility] ([facility]) OneTouch Delica [...] x 5/16" USE DIRECTED ONCE DAILY JEFF ([facility]) Azithromycin 250 MG Oral Tablet JEFF [...] Center) Docusate Sodium 50 MG / sennosides, NURSING HOME 8.6 MG Oral Tablet JEFF ([facility]) sennosides 8.6 mg-docusate sodium 50 mg capsule Take 2 capsules by oral route at bedtime. JEFF ([facility]) Propranolol Hydrochloride 20 MG Oral Tablet [...] Center) Docusate Sodium 50 MG / sennosides, NURSING HOME 8.6 MG Oral Tablet JEFF ([facility]) sennosides 8.6 mg-docusate sodium 50 mg capsule Take 2 capsules by oral route at bedtime. JEFF ([facility]) buspirone hydrochloride 10 MG Oral Tablet [...] Center) Docusate Sodium 50 MG / sennosides, NURSING HOME 8.6 MG Oral Tablet JEFF ([facility]) ziprasidone 60 MG Oral Capsule JEFF ([facility]) Ergocalciferol 89395 UNT Oral Capsule JEFF ([facility]) 0.5 ML dulaglutide 1.5 MG/ML Auto-Injector [Trulicity] JEFF ([facility]) Triamcinolone Acetonide 1 MG/ML Topical Cream JEFF ([facility]) Steglatro 5 mg tablet JEFF ([facility]) Simvastatin 10 MG Oral Tablet JEFF ([facility]) Docusate Sodium 50 MG / sennosides, NURSING HOME 8.6 MG Oral Tablet JEFF ([facility]) sennosides 8.6 mg-docusate sodium 50 mg capsule Take 2 capsules by oral route at bedtime. JEFF ([facility]) sennosides, NURSING HOME 8.6 MG Oral Tablet [Senna-Time] JEFF ([facility]) Propranolol Hydrochloride 20 MG Oral Tablet JEFF ([facility]) Prazosin 1 MG Oral Capsule A THENA ([facility]) NanapiTouch Verio test strips USE DIRECTED UP TO TWO TIMES A DAY TRINIDAD ([facility]) OneTouch Verio Flex [...] x 5/16" USE DIRECTED ONCE DAILY JEFF ([facility]) Azithromycin 250 MG Oral Tablet JEFF ([facility]) Amitriptyline Hydrochloride 75 MG Oral Tablet JEFF ([facility]) Amitriptyline Hydrochloride 50 MG Oral Tablet JEFF ([facility]) Isopropyl Alcohol 0.7 ML/ML Medicated Pad JEFF ([facility]) ziprasidone 60 MG Oral Capsule JEFF ([facility]) Ergocalciferol 09991 UNT Oral Capsule JEFF ([facility]) 0.5 ML dulaglutide 1.5 MG/ML Auto-Injector [Trulicity] JEFF ([facility]) Triamcinolone Acetonide 1 MG/ML Topical Cream JEFF ([facility]) Steglatro 5 mg tablet JEFF ([facility]) Simvastatin 10 MG Oral Tablet JEFF ([facility]) Docusate Sodium 50 MG / sennosides, NURSING HOME 8.6 MG Oral Tablet JEFF ([facility]) sennosides 8.6 mg-docusate sodium 50 mg capsule Take 2 capsules by oral route at bedtime. JEFF ([facility]) sennosides, NURSING HOME 8.6 MG Oral Tablet [Senna-Time] [facility] ([facility] capsules by oral route at bedtime. JEFF ([facility]) Propranolol Hydrochloride 20 MG Oral Tablet [...] Center) Docusate Sodium 50 MG / sennosides, NURSING HOME 8.6 MG Oral Tablet JEFF ([facility]) sennosides 8.6 mg-docusate sodium 50 mg capsule Take 2 capsules by oral route at bedtime. JEFF ([facility]) Propranolol Hydrochloride 20 MG Oral Tablet [...] Center) Docusate Sodium 50 MG / sennosides, NURSING HOME 8.6 MG Oral Tablet JEFF ([facility]) sennosides 8.6 mg-docusate sodium 50 mg capsule Take 2 capsules by oral route at bedtime. JEFF ([facility]) Propranolol Hydrochloride 20 MG Oral Tablet JEFF ([facility]) ziprasidone 60 MG Oral Capsule JEFF ([facility]) 0.5 ML dulaglutide 1.5 MG/ML Auto-Injector [Trulicity] JEFF ([facility]) Triamcinolone Acetonide 1 MG/ML Topical Cream JEFF ([facility]) Docusate Sodium 50 MG / sennosides, NURSING HOME 8.6 MG Oral Tablet JEFF ([facility]) sennosides 8.6 mg-docusate sodium 50 mg capsule Take 2 capsules by oral route at bedtime. JEFF ([facility]) Propranolol Hydrochloride 20 MG Oral Tablet [...] Center) Docusate Sodium 50 MG / sennosides, NURSING HOME 8.6 MG Oral Tablet JEFF ([facility]) sennosides 8.6 mg-docusate sodium 50 mg capsule Take 2 capsules by oral route at bedtime. JEFF ([facility]) Propranolol Hydrochloride 20 MG Oral Tablet [...] Center) Docusate Sodium 50 MG / sennosides, NURSING HOME 8.6 MG Oral Tablet JEFF ([facility]) sennosides 8.6 mg-docusate sodium 50 mg capsule Take 2 capsules by oral route at bedtime. JEFF ([facility]) Propranolol Hydrochloride 20 MG Oral Tablet [...]
== END 2021-08-12 16:00 | disposition left against medical advice (07) ==
LOC: M ED 12:59
DX: Z53.29 Procedure and treatment not carried out because of patient's decision for other reasons (principal)

== ENCOUNTER 2021-08-19 00:30 | Emergency (ER) | payer OTHER ==
[~2021-08-19] VITALS: Ht 172.7 cm; Wt 112.1 kg
[2021-08-19 00:32] VITALS: BP 146/93
--- OUTSIDE RECORDS SUMMARY | 2021-08-19 00:43 | CCD ---
Author Author [facility] Address Unknown Phone Unavailable Support Name Relationship Address Phone Aleyda Goncalves Next Of Kin Unknown Unavailable Kinza Fritz Next Of Kin [address] [place] [address] Leela Castaneda Next Of Kin [address] [place], [place] [phone] Steven Veloz MD Next Of Kin [address] [place] [address] UNanci Next Of Kin Unknown Unavailable [place] [address] GERRY VARGAS Next Of Kin Unknown GERRY OJEDA Next Of Kin [address] [facility] [place] [address] GERRY MONIQUE Next Of Kin [address] [place] [address] Selena MUHAMMAD, Carol Next Of Kin [address] [place] [address] NONE, NONE [place] [address] Unavailable KACY GONCALVES Next Of Kin [address] [facility] [place] [address] ISAEL [place] [address] NOBODY, TIME AT Next Of Kin [address] [place] [address] ALEYDA GONCALVES Next Of Kin [address] [facility] [place] [address] STPEHANIE, CAROLY[place] [address] ALANNA HATFIELD Next Of Kin [address] [facility] [address] [place] [phone] [place] [address] DISABLED Next Of Kin Unknown GERRY OJEDA ECON Unknown Unavailable Aleyda Louie E[address] [place] [address] Unavailable ALEYDA GONCALVES ECON [address] [place] [address] [phone] Care Team Providers Care Township Clerk Name Role Phone Shiv Veloz MD Unavailable [...] Veloz, Shiv Harris MD Unavailable Unavailable Veloz, hSiv Harris MD Unavailable Unavailable Veloz, Shiv Harris [...] Shiv Harris MD Unavailable Unavailable Kinza Yanes HAND III CUTTER HAND III CUTTER Unavailable Unavailable Montenegro, R Russell LADDERMAN Unavailable Unavailable Montenegro, R Russell LADDERMAN Unavailable Unavailable Montenegro, R Russell LADDERMAN Unavailable Unavailable PABLO, B LIAM LADDERMAN Unavailable Unavailable PABLO, B LIAM LADDERMAN Unavailable Unavailable PABLO, B LIAM LADDERMAN Unavailable Unavailable PABLO, B LIAM LADDERMAN Unavailable Unavailable PABLO, B LIAM LADDERMAN Unavailable Unavailable PABLO, B LIAM LADDERMAN Unavailable Unavailable PABLO, B LIAM LADDERMAN Unavailable Unavailable PABLO, B LIAM LADDERMAN Unavailable Unavailable PABLO, B LIAM LADDERMAN Unavailable Unavailable PABLO, B LIMA LADDERMAN Unavailable Unavailable PABLO, B LIAM LADDERMAN Unavailable Unavailable PABLO, B LIAM LADDERMAN Unavailable Unavailable PABLO, B LIAM LADDERMAN Unavailable Unavailable PABLO, B LIAM LADDERMAN Unavailable Unavailable PABLO, B LIAM LADDERMAN Unavailable Unavailable PABLO, B LIAM LADDERMAN Unavailable Unavailable PABLO, B LIAM LADDERMAN Unavailable Unavailable PABLO, B LIAM LADDERMAN Unavailable Unavailable PABLO, B LIAM LADDERMAN Unavailable Unavailable PABLO, B LIAM LADDERMAN Unavailable Unavailable PABLO, B LIAM LADDERMAN Unavailable Unavailable PABLO, B LIAM LADDERMAN Unavailable Unavailable PABLO, B LIAM LADDERMAN Unavailable Unavailable PABLO, B LIAM LADDERMAN Unavailable Unavailable PABLO, B LIAM LADDERMAN Unavailable Unavailable PABLO, B LIAM LADDERMAN Unavailable Unavailable PABLO, B LIAM LADDERMAN Unavailable Unavailable PABLO, B LIAM LADDERMAN Unavailable Unavailable PABLO, B LIAM LADDERMAN Unavailable Unavailable PABLO, B LIAM LADDERMAN Unavailable Unavailable PABLO, B LIAM LADDERMAN Unavailable Unavailable PABLO, B LIAM LADDERMAN Unavailable Unavailable PABLO, B LIAM LADDERMAN Unavailable Unavailable PABLO, B LIAM LADDERMAN Unavailable Unavailable PABLO, B LIAM LADDERMAN Unavailable Unavailable PABLO, B LIAM LADDERMAN Unavailable Unavailable PABLO, B LIAM LADDERMAN Unavailable Unavailable PABLO, B LIAM LADDERMAN Unavailable Unavailable PABLO, B LIAM LADDERMAN Unavailable Unavailable PABLO, B LIAM LADDERMAN Unavailable Unavailable PABLO, B LIAM LADDERMAN Unavailable Unavailable PABLO, B LIAM LADDERMAN Unavailable Unavailable PABLO, B LIAM LADDERMAN Unavailable Unavailable PABLO, B LIAM LADDERMAN Unavailable Unavailable PABLO, B LIAM LADDERMAN Unavailable Unavailable PABLO, B LIAM LADDERMAN Unavailable Unavailable PABLO, B LIAM LADDERMAN Unavailable Unavailable PABLO, B LIAM LADDERMAN Unavailable Unavailable PABLO, B LIAM LADDERMAN Unavailable Unavailable PABLO, B LIAM LADDERMAN Unavailable Unavailable PABLO, B LIAM LADDERMAN Unavailable Unavailable PABLO, B LIAM LADDERMAN Unavailable Unavailable PABLO, B LIAM LADDERMAN Unavailable Unavailable PABLO, B LIAM LADDERMAN Unavailable Unavailable PABLO, B LIAM LADDERMAN Unavailable Unavailable PABLO, B LIAM LADDERMAN Unavailable Unavailable PABLO, B LIAM LADDERMAN Unavailable Unavailable PABOL, B LIAM LADDERMAN Unavailable Unavailable PABLO, B LIAM LADDERMAN Unavailable Unavailable PABLO, B LIAM LADDERMAN Unavailable Unavailable PABLO, B LIAM LADDERMAN Unavailable Unavailable PABLO, B LIAM LADDERMAN Unavailable Unavailable MAJAK, Kim VIRGEN DPM Unavailable [...] Unavailable MAJAK, R PARAM DPM Unavailable Unavailable Corye Basilio Unavailable Ricky, Cristy Adrienne PMH-LADDERMAN Unavailable Unavailable Ricky, K Adrienne PMH-LADDERMAN Unavailable Unavailable Scandia, K Adrienne PMH-LADDERMAN Unavailable Unavailable Ricky, K Adrienne PMH-LADDERMAN Unavailable Unavailable Scandia, K Adrienne PMH-LADDERMAN Unavailable Unavailable Ricky, K Adrienne PMH-LADDERMAN Unavailable Unavailable Ricky, K Adrienne PMH-LADDERMAN Unavailable Unavailable Ricky, K Adrienne PMH-LADDERMAN Unavailable Unavailable Cesilia Narvaez Unavailable Guido Yanes Kinza HAND III CUTTER-BC Unavailable Unavailable Joaquín, F Kinza HAND III CUTTER-BC Unavailable Unavailable Joaquín, F Kinza HAND III CUTTER-BC Unavailable Unavailable Joaquín, F Kinza HAND III CUTTER-BC Unavailable Unavailable Yanes, F Kinza HAND III CUTTER-BC Unavailable Unavailable Joaquín, F Kinza HAND III CUTTER-BC Unavailable Unavailable Yanes, F Kinza HAND III CUTTER-BC Unavailable Unavailable Yanes, F Kinza HAND III CUTTER-BC Unavailable Unavailable Yanes, F Kinza HAND III CUTTER-BC Unavailable Unavailable Yanes, F Kinza HAND III CUTTER-BC Unavailable Unavailable Yanes, F Kinza HAND III CUTTER-BC Unavailable Unavailable Joaquín, F Kinza HAND III CUTTER-BC Unavailable Unavailable Yanes, F Kinza HAND III CUTTER-BC Unavailable Unavailable Guido Yanes Kinza HAND III CUTTER-BC Unavailable Unavailable Guido Yanes HAND III CUTTER-BC Unavailable Unavailable Guido Yanes HAND III CUTTER-BC Unavailable Unavailable Guido Yanes HAND III CUTTER-BC Unavailable Unavailable Guido Yanes Kinza HAND III CUTTER-BC Unavailable Unavailable Guido Yanes Kinza HAND III CUTTER-BC Unavailable Unavailable Guido Yanes Kinza HAND III CUTTER-BC Unavailable Unavailable Guido Yanes HAND III CUTTER-BC Unavailable Unavailable Guido Yanes Kinza HAND III CUTTER-BC Unavailable Unavailable Guido Yanes Kinza HAND III CUTTER-BC Unavailable Unavailable Scordo, M Whitney PA Unavailable [...] is protected by Article 27-F of the [facility] Public Health law. If you continue you may have access to information: Regarding HIV / AIDS; Provided by facilities licensed or operated by the [facility] Office of Mental Health; or Provided by the [facility] Office for People With Developmental Disabilities. If such information is present, then the following [facility] mandated warning applies: This information has [...] to substance Penicillins Penicillins Active [facility] ([facility]) Propensity to adverse reactions to substance chlorpromazine Chlorpromazine hydrochloride 100 MG Oral Tablet Active [facility] ([facility]) Family History Family Member Name Family Member Gender Family Member Status Date o f Status Description Data Source(s) Unknown Unknown Problem [facility] ([facility], ) Encounters Encounter Providers Location Date Indications Data Source(s ) Steven Veloz MD: [address] [place] [phone], Ph. Attender: Steven Veloz MD [facility] 07/19/2021 12:00:00 AM EDT JEFF ([facility]) Extended Individual Psychotherapy - 45 min Attender: [facility] 07/02/2021 10:45:00 AM EDT - 07/02/2021 10:45:00 AM EDT [facility] ([facility]) Attender: [facility] 07/02/2021 12:00:00 AM EDT [facility] ([facility]) TEMPMHCTelemed 30" Psychotherapy Attender: [facility] 06/14/2021 12:30:00 PM EDT - 06/14/2021 12:30:00 PM EDT [facility] ([facility]) Attender: [facility] 06/14/2021 12:00:00 AM EDT [facility] ([facility]) Steven Veloz MD: [address] [place] [phone], Ph. Attender: Steven Veloz MD [facility] 06/12/2021 12:00:00 AM EDT JEFF ([facility]) Steven Veloz MD: [address] [place] [phone], Ph. Attender: Steven Veloz MD [facility] 06/12/2021 12:00:00 AM EDT JEFF ([facility]) Brief Individual Psychotherapy - 30 min Attender: [facility] 05/31/2021 12:30:00 PM EDT - 05/31/2021 12:30:00 PM EDT [facility] ([facility]) Attender: Corey Basilio 05/31/2021 12:00:00 AM EDT [facility] ([facility]) Outpatient Attender: Russell Montenegro NP [facility] 05/30/2021 10:45:00 AM EDT - 05/30/2021 10:45:00 AM EDT [facility] ([facility]) Attender: Russell Montenegro NP 05/30/2021 12:00:00 AM EDT [facility] ([facility]) Steven Veloz MD: [address] [place] [address], Ph. Attender: Steven Veloz MD [facility] 05/02/2021 12:00:00 AM EDT JEFF ([facility]) Steven Veloz MD: [address] [place] [phone], Ph. Attender: Steven Veloz MD [facility] 05/02/2021 12:00:00 AM EDT JEFF ([facility]) Steven Veloz MD: [address] [place] [phone], Ph. Attender: Steven Veloz MD [facility] 05/02/2021 12:00:00 AM EDT JEFF ([facility]) [id number]"Psychotherapy Attender: oCrey Basilio [facility] 05/01/2021 01:00:00 AM EDT - 05/01/2021 01:00:00 AM EDT [facility] ([facility]) Attender: Corey Basilio 05/01/2021 12:00:00 AM EDT [facility] ([facility]) [place] [address] [facility] [address] 04/03/2021 12:00:00 AM EDT eCW1 ([facility]) Extended Individual Psychotherapy - 45 min Attender: Corey Basilio [facility] 03/26/2021 10:45:00 AM EDT - 03/26/2021 10:45:00 AM EDT [facility] ([facility]) Attender: Corey Basilio 03/26/2021 12:00:00 AM EDT [facility] ([facility]) Steven Veloz MD: [address] [place] [address], Ph. Attender: Steven Veloz MD [facility] 03/22/2021 12:00:00 AM EDT JEFF ([facility]) Steven Veloz MD: [address] [place] [address], Ph. Attender: Steven Veloz MD [facility] 03/22/2021 12:00:00 AM EDT JEFF ([facility]) Steven Veloz MD: [address] [place] [address], Ph. Attender: Steven Veloz MD [facility] 03/22/2021 12:00:00 AM EDT JEFF ([facility]) Steven Veloz MD: [address] [place] [address], Ph. Attender: Steven Veloz MD [facility] 03/22/2021 12:00:00 AM EDT JEFF ([facility]) Steven Veloz MD: [address] [place] [address], Ph. Attender: Steven Veloz MD [facility] 03/22/2021 12:00:00 AM EDT JEFF ([facility]) Steven Veloz MD: [address] [place] [address], Ph. Attender: Steven Veloz MD [facility] 03/22/2021 12:00:00 AM EDT JEFF ([facility]) Outpatient Attender: PARAM VENTURA [facility] 02/11 09:45:00 AM EDT MEDENT ([facility] Whitney Flores PA-C: [address], [place] [address], Ph. Attender: Whitney BOTELLO [facility] 03/02/2021 12:00:00 AM EDT BAY[facility] ([facility]) Whitney Flores PA-C: [address], [place] [address], Ph. Attender: Whitney BOTELLO [facility] 03/02/2021 12:00:00 AM EDT [facility] ([facility]) Whitney Flores PA-C: [address], [place] [address], Ph. Attender: Whitney BOTELOL [facility] 03/02/2021 12:00:00 AM EDT [facility] ([facility]) Whitney Flores PA-C: [address], [place] [address], Ph. Attender: Whitney BOTELLO [facility] 03/02/2021 12:00:00 AM EDT [facility] ([facility]) Whitney Flores PA-C: [address], [place] [address], Ph. Attender: Whitney BOTELLO [facility] 03/02/2021 12:00:00 AM EDT [facility] ([facility]) Whitney Flores PA-C: [address], [place] [address], Ph. Attender: Whitney BOTELLO [facility] 03/02/2021 12:00:00 AM EDT JEFF ([facility]) Whitney Flores PA-C: [address] [place] [address], Ph. Attender: Whitney BOTELLO [facility] 03/02/2021 12:00:00 AM EDT JEFF ([facility]) Extended Individual Psychotherapy - 45 min Attender: [facility] 02/26/2021 12:00:00 PM EDT - 02/26/2021 12:00:00 PM EDT [facility] ([facility]) Attender: Corey Basilio 02/26/2021 12:00:00 AM EDT [facility] ([facility]) Unknown [address] [facility], [facility] [address] 02/21/2021 12:00:00 AM EDT eCW1 ([facility]) Steven Veloz MD: [address] [place] [phone], Ph. Attender: Steven Veloz MD [facility] 02/12/2021 12:00:00 AM EDT JEFF ([facility]) Steven Veloz MD: [address] [place] [address], Ph. Attender: Steven Veloz MD [facility] 02/12/2021 12:00:00 AM EDT JEFF ([facility]) Steven Veloz MD: [address] [place] [phone], Ph. Attender: Steven Veolz MD [facility] 02/12/2021 12:00:00 AM EDT JEFF ([facility]) Steven Veloz MD: [address] [place] [address], Ph. Attender: Steven Veloz MD [facility] 02/12/2021 12:00:00 AM EDT JEFF ([facility]) Steven Veloz MD: [address] [place] [address]3 [address], Ph. Attender: Steven Veloz MD [facility] 02/12/2021 12:00:00 AM EDT JEFF ([facility]) Steven Veloz MD: [address] [place] [address], Ph. Attender: Steven Veloz MD [facility] 02/12/2021 12:00:00 AM EDT JEFF ([facility]) Steven Veloz MD: [address] [place] [address], Ph. Attender: Steven Veloz MD [facility] 02/12/2021 12:00:00 AM EDT JEFF ([facility]) Steven Veloz MD: [address] [place] [address], Ph. Attender: Steven Veloz MD [facility] 02/12/2021 12:00:00 AM EDT JEFF ([facility]) Steven Veloz MD: [address] [place] [address]3 [address], Ph. Attender: Steven Veloz MD [facility] 02/12/2021 12:00:00 AM EDT JEFF ([facility]) Brief Individual Psychotherapy - 30 min Attender: Corey Basilio [facility] 02/07/2021 11:30:00 AM EDT - 02/07/2021 11:30:00 AM EDT [facility] ([facility]) Attender: Corey Basilio 02/07/2021 12:00:00 AM EDT [facility] ([facility]) [place] [address] [facility] [address] 01/24/2021 12:00:00 AM EDT eCW1 ([facility]) [id number]"Psychotherapy Attender: Corey Basilio [facility] 01/18/2021 06:00:00 AM EDT - 01/18/2021 06:00:00 AM EDT [facility] ([facility]) Attender: Corey Basilio 01/18/2021 12:00:00 AM EDT [facility] ([facility]) Steven Veloz MD: [address] [place] [address], Ph. Attender: Steven Veloz MD [facility] 01/09/2021 12:00:00 AM EDT JEFF ([facility]) Steven Veloz MD: [address] [place] [address], Ph. Attender: Steven Veloz MD [facility] 01/09/2021 12:00:00 AM EDT JEFF ([facility]) Steven Veloz MD: [address] [place] [address], Ph. Attender: Steven Veloz MD [facility] 01/09/2021 12:00:00 AM EDT JEFF ([facility]) Steven Veloz MD: [address] [place] [address]-1 [address], Ph. Attender: Steven Veloz MD [facility] 01/09/2021 12:00:00 AM EDT JEFF ([facility]) Steven Veloz MD: [address] [place] [address]-0 [address], Ph. Attender: Steven Veloz MD [facility] 01/09/2021 12:00:00 AM EDT JEFF ([facility]) Steven Veloz MD: [address] [place] [address], Ph. Attender: Steven Veloz MD [facility] 01/09/2021 12:00:00 AM EDT JEFF ([facility]) Steven Veloz MD: [address] [place] [address]-7 [address], Ph. Attender: Steven Veloz MD [facility] 01/09/2021 12:00:00 AM EDT JEFF ([facility]) Steven Veloz MD: [address] [place] [address], Ph. Attender: Steven Veloz MD [facility] 01/09/2021 12:00:00 AM EDT JEFF ([facility]) Steven Veloz MD: [address] [place] [address]-1 504, Ph. Attender: Steven Veloz MD [facility] 01/09/2021 12:00:00 AM EDT JEFF ([facility]) Steven Veloz MD: [address] [place] [address]-4 [address], Ph. Attender: Steven Veloz MD [facility] 01/09/2021 12:00:00 AM EDT JEFF ([facility]) Extended Individual Psychotherapy - 45 min Attender: Corey Basilio [facility] 12/28/2020 12:00:00 PM EDT - 12/28/2020 12:00:00 PM EDT [facility] ([facility]) Attender: Corey Basilio 12/28/2020 12:00:00 AM EDT [facility] ([facility]) Steven Veloz MD: [address] [place] [address]-5 [address], Ph. Attender: Steven Veloz MD [facility] 12/14/2020 12:00:00 AM EST JEFF ([facility]) Steven Veloz MD: [address] [place] [address]-5 [address], Ph. Attender: Steven Veloz MD [facility] 12/14/2020 12:00:00 AM EST JEFF ([facility]) Steven Veloz MD: [address] [place] [address], Ph. Attender: Steven Veloz MD [facility] 12/14/2020 12:00:00 AM EST JEFF ([facility]) Steven Veloz MD: [address] [place] [address]-3 [address], Ph. Attender: Steven Veloz MD [facility] 12/14/2020 12:00:00 AM EST JEFF ([facility]) Steven Veloz MD: [address] [place] [address]-6 [address], Ph. Attender: Steven Veloz MD [facility] 12/14/2020 12:00:00 AM EST JEFF ([facility]) Steven Veloz MD: [address] [place] [address]-0 504, Ph. Attender: Steven Veloz MD [facility] 12/14/2020 12:00:00 AM EST JEFF ([facility]) Steven Veloz MD: [address] [place] [address]-5 [address], Ph. Attender: Steven Veloz MD [facility] 12/14/2020 12:00:00 AM EST JEFF ([facility]) Steven Veloz MD: [address] [place] [address]-8 504, Ph. Attender: Steven Veloz MD [facility] 12/14/2020 12:00:00 AM EST JEFF ([facility]) Steven Veloz MD: [address] [place] [address]-0 504, Ph. Attender: Steven Veloz MD [facility] 12/14/2020 12:00:00 AM EST JEFF ([facility]) Steven Veloz MD: [address] [place] [address]-9 [address], Ph. Attender: Steven Veloz MD [facility] 12/14/2020 12:00:00 AM EST JEFF ([facility]) Steven Veloz MD: [address] [place] [address]-7 [address], Ph. Attender: Steven Veloz MD [facility] 12/14/2020 12:00:00 AM EST JEFF ([facility]) Outpatient Attender: Adrienne García [facility] 12/11/2020 09:30:00 AM EST - 12/11/2020 09:30:00 AM EST [facility] ([facility]) Attender: Adrienne Gacría [facility] 12/11/2020 12: 00:00 AM EST [facility] ([facility]) Extended Individual Psychotherapy - 45 min Attender: Glenna Chetna [facility] 12/07/2020 12:00:00 PM EST - 12/07/2020 12:00:00 PM EST [facility] ([facility]) Attender: Corey Basilio 12/07/2020 12:00:00 AM EST [facility] ([facility]) Outpatient [facility] [address] 12/06/2020 12:00:00 AM EST eCW1 ([facility]) Outpatient Attender: LIAM SHAH LADDERMAN Physical Therapy 02:30:00 PM EST [facility]ENT ([facility]) Steven Veloz MD: [address] [place] [address], Ph. Attender: Steven Veloz MD [facility] 11/10/2020 12:00:00 AM EST JEFF ([facility]) Steven Veloz MD: [address] [place] [address]-5 [address], Ph. Attender: Steven Veloz MD [facility] 11/10/2020 12:00:00 AM EST JEFF ([facility]) Steven Veloz MD: [address] [place] [address]-4 504, Ph. Attender: Steven Veloz MD [facility] 11/10/2020 12:00:00 AM EST JEFF ([facility]) Steven Veloz MD: [address] [place] [address]-9 504, Ph. Attender: Steven Veloz MD [facility] 11/10/2020 12:00:00 AM EST JEFF ([facility]) Steven Veloz MD: [address] [place] [address]-7 [address], Ph. Attender: Steven Veloz MD [facility] 11/10/2020 12:00:00 AM EST JEFF ([facility]) Steven Veloz MD: [address] [place] [address]-2 504, Ph. Attender: Steven Veloz MD [facility] 11/10/2020 12:00:00 AM EST JEFF ([facility]) Steven Veloz MD: [address] [place] [address]-5 504, Ph. Attender: Steven Veloz MD [facility] 11/10/2020 12:00:00 AM EST JEFF ([facility]) Steven Veloz MD: [address] [place] [address]-6 504, Ph. Attender: Steven Veloz MD [facility] 11/10/2020 12:00:00 AM EST JEFF ([facility]) Steven Veloz MD: [address] [place] [address]-5 [address], Ph. Attender: Steven Veloz MD [facility] 11/10/2020 12:00:00 AM EST JEFF ([facility]) Steven Veloz MD: [address] [place] [address], Ph. Attender: Steven Veloz MD [facility] 11/10/2020 12:00:00 AM EST JEFF ([facility]) Steven Veloz MD: [address] [place] [address]-3 504, Ph. Attender: Steven Veloz MD [facility] 11/10/2020 12:00:00 AM EST JEFF ([facility]) Steven Veloz MD: [address] [place] [address]-1 504, Ph. Attender: Steven Veloz MD [facility] 11/10/2020 12:00:00 AM EST JEFF ([facility]) TEMPMHCTelemed 30" Psychotherapy Attender: Corey Basilio [facility] 11/07/2020 12:00:00 PM EST - 11/07/2020 12:00:00 PM EST [facility] ([facility]) Attender: Corey Basilio 11/07/2020 12:00:00 AM EST [facility] ([facility]) Outpatient [address] [facility] [place] [address] 11/01/2020 12:00:00 AM EST eCW1 ([facility]) Outpatient Attender: Adrienne García [facility] 10/25/2020 10:00:00 AM EST - 10/25/2020 10:00:00 AM EST [facility] ([facility]) Attender: Adrienne García [facility] 10/25/2020 12: 00:00 AM EST [facility] ([facility]) Extended Individual Psychotherapy - 45 min [facility]/20/[facility] 12:00:00 PM EST - 10/20/2020 12:00:00 PM EST [facility] ([facility]) Attender: Corey Basilio 10/20/2020 12:00:00 AM EST [facility] ([facility]) Outpatient Attender: LIAM SHAH NP Physical Therapy 12:15:00 PM EST MEDENT ([facility]) Unknown [id number] [facility] [place] [id number] 10/16/2020 12:00:00 AM EST [email or web address] ([facility]) Steven Veloz MD: [address] [place] [phone], Ph. Attender: Steven Veloz MD [facility] 10/03/2020 12:00:00 AM EST JEFF ([facility]) Steven Veloz MD: [address] [place] [phone], Ph. Attender: Steven Veloz MD [facility] 10/03/2020 12:00:00 AM EST JEFF ([facility]) Steven Veloz MD: [address] [place] [phone], Ph. Attender: Steven Veloz MD [facility] 10/03/2020 12:00:00 AM EST JEFF ([facility]) Steven Veloz MD: [address] [place] [address], Ph. Attender: Steven Veloz MD [facility] 10/03/2020 12:00:00 AM EST JEFF ([facility]) Steven Veloz MD: [address] [place] [address], Ph. Attender: Steven Veloz MD [facility] 10/03/2020 12:00:00 AM EST JEFF ([facility]) Steven Veloz MD: [address] [place] [address], Ph. Attender: Steven Veloz MD [facility] 10/03/2020 12:00:00 AM EST JEFF ([facility]) Steven Veloz MD: [address] [place] [address], Ph. Attender: Steven Veloz MD [facility] 10/03/2020 12:00:00 AM EST JEFF ([facility]) Steven Veloz MD: [address] [place] [address], Ph. Attender: Steven Veloz MD [facility] 10/03/2020 12:00:00 AM EST JEFF ([facility]) Steven Veloz MD: [address] [place] [address], Ph. Attender: Steven Veloz MD [facility] 10/03/2020 12:00:00 AM EST JEFF ([facility]) Steven Veloz MD: [address] [place] [address], Ph. Attender: Steven Veloz MD [facility] 10/03/2020 12:00:00 AM EST JEFF ([facility]) Steven Veloz MD: [address] [place] [address], Ph. Attender: Steven Veloz MD [facility] 10/03/2020 12:00:00 AM EST JEFF ([facility]) Steven Veloz MD: [address] [place] [address], Ph. Attender: Steven Veloz MD [facility] 10/03/2020 12:00:00 AM EST JEFF ([facility]) Steven Veloz MD: [address] [place] [address] 504, Ph. Attender: Steven Veloz MD [facility] 10/03/2020 12:00:00 AM EST JEFF ([facility]) Steven Veloz MD: [address] [place] [phone], Ph. Attender: Steven Veloz MD [facility] 10/03/2020 12:00:00 AM EST JEFF ([facility]) Attender: Corey Basilio 09/28/2020 12:00:00 AM EST Accumedic ([facility]) Extended Individual Psychotherapy - 45 min Attender: Corey Basilio [facility] 09/26/2020 12:00:00 PM EST - 09/26/2020 12:00:00 PM EST Accumedic ([facility]) Outpatient Attender: PARAM VENTURA [facility] 09/12 01:00:00 PM EST MEDENT ([facility] Outpatient Attender: Adrienne García [facility] 09/21/2020 09:30:00 AM EST - 09/21/2020 09:30:00 AM EST Accumedic ([facility]) Attender: Adrienne Ricky [facility] 09/21/2020 12: 00:00 AM EST Accumedic ([facility]) Extended Individual Psychotherapy - 45 min Attender: [facility] 09/11/2020 02:00:00 AM EST - 09/11/2020 02:00:00 AM EST [facility] ([facility]) Attender: Corey Basilio 09/11/2020 12:00:00 AM EST Accumed[facility] ([facility]) Steven Veloz MD: [address] [place] [address], Ph. Attender: Steven Veloz MD [facility] 09/01/2020 12:00:00 AM EST JEFF ([facility]) Stevne eVloz MD: [address] [place] [address], Ph. Attender: Steven Veloz MD [facility] 09/01/2020 12:00:00 AM EST JEFF ([facility]) Steven Veloz MD: [address] [place] [address], Ph. Attender: Steven Veloz MD [facility] 09/01/2020 12:00:00 AM EST JEFF ([facility]) Steven Veloz MD: [address] [place] [address], Ph. Attender: Steven Veloz MD [facility] 09/01/2020 12:00:00 AM EST JEFF ([facility]) Steven Veloz MD: [address] [place] [address] 504, Ph. Attender: Steven Veloz MD [facility] 09/01/2020 12:00:00 AM EST JEFF ([facility]) Steven Veloz MD: [address] [place] [address], Ph. Attender: Steven Veloz MD [facility] 09/01/2020 12:00:00 AM EST JEFF ([facility]) Steven Veloz MD: [address] [place] [address], Ph. Attender: Steven Veloz MD [facility] 09/01/2020 12:00:00 AM EST JEFF ([facility]) Steven Veloz MD: [address] [place] [address], Ph. Attender: Steven Veloz MD [facility] 09/01/2020 12:00:00 AM EST JEFF ([facility]) Steven Veloz MD: [address] [place] [address], Ph. Attender: Steven Veloz MD [facility] 09/01/2020 12:00:00 AM EST JEFF ([facility]) Steven Veloz MD: [address] [place] [address], Ph. Attender: Steven Veloz MD [facility] 09/01/2020 12:00:00 AM EST JEFF ([facility]) Steven Veloz MD: [address] [place] [address], Ph. Attender: Steven Veloz MD [facility] 09/01/2020 12:00:00 AM EST JEFF ([facility]) Steven Veloz MD: [address] [place] [address], Ph. Attender: Steven Veloz MD [facility] 09/01/2020 12:00:00 AM EST JEFF ([facility]) Steven Veloz MD: [address] [place] [address], Ph. Attender: Steven Veloz MD [facility] 09/01/2020 12:00:00 AM EST JEFF ([facility]) Steven Veloz MD: [address] [place] [address], Ph. Attender: Steven Veloz MD [facility] 09/01/2020 12:00:00 AM EST JEFF ([facility]) Steven Veloz MD: [address] [place] [address], Ph. Attender: Steven Veloz MD [facility] 09/01/2020 12:00:00 AM EST JEFF ([facility]) Steven Veloz MD: [address] [place] [address], Ph. Attender: Steven Veloz MD [facility] 08/25/2020 12:00:00 AM EST JEFF ([facility]) Steven Veloz MD: [address] [place] [address], Ph. Attender: Steven Veloz MD [facility] 08/25/2020 12:00:00 AM EST JEFF ([facility]) Steven Veloz MD: [address] [place] [address], Ph. Attender: Steven Veloz MD [facility] 08/25/2020 12:00:00 AM EST JEFF ([facility]) Steven Veloz MD: [address] [place] [address], Ph. Attender: Steven Veloz MD [facility] 08/25/2020 12:00:00 AM EST JEFF ([facility]) Steven Veloz MD: [address] [place] [address], Ph. Attender: Steven Veloz MD [facility] 08/25/2020 12:00:00 AM EST JEFF ([facility]) Steven Veloz MD: [address] [place] [address], Ph. Attender: Steven Veloz MD [facility] 08/25/2020 12:00:00 AM EST JEFF ([facility]) Steven Veloz MD: [address] [place] [address], Ph. Attender: Steven Veloz MD [facility] 08/25/2020 12:00:00 AM EST JEFF ([facility]) Steven Veloz MD: [address] [place] [address], Ph. Attender: Steven Veloz MD [facility] 08/25/2020 12:00:00 AM EST JEFF ([facility]) Steven Veloz MD: [address] [place] [address]5 [address], Ph. Attender: Steven Veloz MD [facility] 08/25/2020 12:00:00 AM EST JEFF ([facility]) Steven Veloz MD: [address] [place] [address], Ph. Attender: Steven Veloz MD [facility] 08/25/2020 12:00:00 AM EST JEFF ([facility]) Steven Veloz MD: [address] [place] [address], Ph. Attender: Steven Veloz MD [facility] 08/25/2020 12:00:00 AM EST JEFF ([facility]) Steven Veloz MD: [address] [place] [address]3 [address], Ph. Attender: Steven Veloz MD [facility] 08/25/2020 12:00:00 AM EST JEFF ([facility]) Steven Veloz MD: [address] [place] [address] 504, Ph. Attender: Steven Veloz MD [facility] 08/25/2020 12:00:00 AM EST JEFF ([facility]) Steven Veloz MD: [address] [place] [address]3 504, Ph. Attender: Steven Veloz MD [facility] 08/25/2020 12:00:00 AM EST JEFF ([facility]) Steven Veloz MD: [address] [place] [phone], Ph. Attender: Steven Veloz MD [facility] 08/25/2020 12:00:00 AM EST JEFF ([facility]) Outpatient Attender: Adrienne García [facility] 08/24/2020 09:30:00 AM EST - 08/24/2020 09:30:00 AM EST Accumedic ([facility]) Attender: Adrienne García [facility] 08/24/2020 12: 00:00 AM EST Accumedic ([facility]) Outpatient Attender: LIAM SHAH NP Physical Therapy 02:15:00 PM EST MEDENT ([facility]) Brief Individual Psychotherapy - 30 min Attender: Cesilia rivera [facility] 08/17/2020 12:00:00 PM EST - 08/17/2020 12:00:00 PM EST [facility] ([facility]) Attender: Cesilia Narvaez 08/17/2020 12:00:00 AM EST [facility]umed[facility] ([facility]) Outpatient Attender: JLUIS HINTON 08/10/2020 02:40:[address] [facility] Steven Veloz MD: [address] [place], [place] [address], [place] [address], Ph. Attender: Steven Veloz MD [facility] 08/10/2020 12:00:00 AM EDT JEFF ([facility]) Steven Veloz MD: [address] [place] [address]2 504, Ph. Attender: Steven Veloz MD [facility] 08/10/2020 12:00:00 AM EDT JEFF ([facility]) Steven Veloz MD: [address] [place] [address]3 504, Ph. Attender: Steven Veloz MD [facility] 08/10/2020 12:00:00 AM EDT JEFF ([facility]) Steven Veloz MD: [address] [place] [address]4 504, Ph. Attender: Steven Veloz MD [facility] 08/10/2020 12:00:00 AM EDT JEFF ([facility]) Steven Veloz MD: [address] [place] [address]6 504, Ph. Attender: Steven Veloz MD [facility] 08/10/2020 12:00:00 AM EDT JEFF ([facility]) Steven Veloz MD: [address] [place] [address]5 [address], Ph. Attender: Steven Veloz MD [facility] 08/10/2020 12:00:00 AM EDT JEFF ([facility]) Steven Veloz MD: [address] [place] [address], Ph. Attender: Steven Veloz MD [facility] 08/10/2020 12:00:00 AM EDT JEFF ([facility]) Steven Veloz MD: [address] [place] [address]2 504, Ph. Attender: Steven Veloz MD [facility] 08/10/2020 12:00:00 AM EDT JEFF ([facility]) Steven Veloz MD: [address] [place] [address] 504, Ph. Attender: Steven Veloz MD [facility] 08/10/2020 12:00:00 AM EDT JEFF ([facility]) Steven Veloz MD: [address] [place] [address]4 504, Ph. Attender: Steven Veloz MD [facility] 08/10/2020 12:00:00 AM EDT JEFF ([facility]) Steven Veloz MD: [address] [place] [address]6 504, Ph. Attender: Steven Veloz MD [facility] 08/10/2020 12:00:00 AM EDT JEFF ([facility]) Steven Veloz MD: [address] [place] [address]8 504, Ph. Attender: Steven Veloz MD [facility] 08/10/2020 12:00:00 AM EDT JEFF ([facility]) Steven Veloz MD: [address] [place] [address]8 504, Ph. Attender: Steven Veloz MD [facility] 08/10/2020 12:00:00 AM EDT JEFF ([facility]) Steven Veloz MD: [address] [place] [address] 504, Ph. Attender: Steven Veloz MD [facility] 08/10/2020 12:00:00 AM EDT JEFF ([facility]) Steven Veloz MD: [address] [place] [address]8 504, Ph. Attender: Steven Veloz MD [facility] 08/10/2020 12:00:00 AM EDT JEFF ([facility]) Steven Veloz MD: [address] [place] [address]-1 504, Ph. Attender: Steven Veloz MD [facility] 08/10/2020 12:00:00 AM EDT JEFF ([facility]) Steven Veloz MD: [address] [place] [address]-1 504, Ph. Attender: Steven Veloz MD [facility] 08/10/2020 12:00:00 AM EDT JEFF ([facility]) Outpatient Attender: Kinza BELLA 07/28/2020 02: 10:[address] [facility] Outpatient Attender: JLUIS BAZZI 07/28/2020 01:17:[address] [facility] Outpatient Attender: Adrienne García [facility] 07/25/2020 09:00:00 AM EDT - 07/25/2020 09:00:00 AM EDT [facility] ([facility]) Attender: Adrienne García [facility] 07/25/2020 12: 00:00 AM EDT [facility] ([facility]) Brief Individual Psychotherapy - 30 min Attender: Cesilia rivera [facility] 07/20/2020 04:00:00 AM EDT - 07/20/2020 04:00:00 AM EDT [facility] ([facility]) Attender: Cesilia Narvaez 07/20/2020 12:00:00 AM EDT [facility] ([facility]) Outpatient Attender: Kinza BELLA FP 07/19/2020 08: 05:[address] [facility] TEMPMHCTelemed 30" Psychotherapy Attender: Cesilia Wilson [facility] Krista Acevedo 07/06/2020 04:30:00 AM EDT - 07/06/2020 04:30:00 AM EDT [facility] ([facility]) Attender: Cesilia Bryanan 07/06/2020 12:00:00 AM EDT [facility] ([facility]) Outpatient Attender: Kinza Yanes HAND III CUTTER-BC FP 07/05/2020 10: 30:[address] [facility] Outpatient Attender: Kinza Yanes HAND III CUTTER-BC FP 06/22/2020 02: 49:[address] [facility] Functional Status Immunizations Vaccine Date Status Description Data Source(s) COVID-19, mRNA, LNP-S, PF, 100 mcg/0.5 mL dose 01/10/2021 04 :55:18 PM EDT completed .5 mL [facility]) COVID-19, mRNA, LNP-S, PF, 100 mcg/0.5 mL dose 01/10/2021 04 :55:18 PM EDT completed .5 mL [facility]) COVID-19, mRNA, LNP-S, PF, 100 mcg/0.5 mL dose 01/10/2021 04 :55:18 PM EDT completed .5 mL [facility]) COVID-19, mRNA, LNP-S, PF, 100 mcg/0.5 mL dose 01/10/2021 04 :55:18 PM EDT [facility], mRNA, LNP-S, PF, 100 mcg/0.5 mL dose 01/10/2021 04 :55:18 PM EDT completed .5 mL [facility]) COVID-19, mRNA, LNP-S, PF, 100 mcg/0.5 mL dose 01/10/2021 04 :55:18 PM EDT completed .5 mL [facility]) COVID-19, mRNA, LNP-S, PF, 100 mcg/0.5 mL dose 01/10/2021 04 :55:18 PM EDT completed .5 mL JEFF ([facility]) COVID-19, mRNA, LNP-S, PF, 100 mcg/0.5 mL dose 01/10/2021 04 :55:18 PM EDT completed .5 mL [facility] ([facility]) COVID-19, mRNA, LNP-S, PF, 100 mcg/0.5 mL dose 01/10/2021 04 :55:18 PM EDT completed .5 mL [facility] ([facility]) COVID-19, mRNA, LNP-S, PF, 100 mcg/0.5 mL dose 01/10/2021 04 :55:18 PM EDT completed .5 mL [facility] ([facility]) COVID-19 VACCINE Moderna 01/10/2021 12:00:00 AM EDT completed [place] Vaccine Series Complete: YESThis Data wa s Submitted to [facility] Via [place]. COVID-19, mRNA, LNP-S, PF, 100 mcg/0.5 mL dose 12/14/2020 05 :16:13 PM EST completed .5 mL [facility] ([facility]) COVID-19, mRNA, LNP-S, PF, 100 mcg/0.5 mL dose 12/14/2020 05 :16:13 PM EST completed .5 mL [facility] ([facility]) COVID-19, mRNA, LNP-S, PF, 100 mcg/0.5 mL dose 12/14/2020 05 :16:13 PM EST completed .5 mL JEFF ([facility]) COVID-19, mRNA, LNP-S, PF, 100 mcg/0.5 mL dose 12/14/2020 05 :16:13 PM EST completed .5 mL [facility] ([facility]) COVID-19, mRNA, LNP-S, PF, 100 mcg/0.5 mL dose 12/14/2020 05 :16:13 PM EST completed .5 mL JEFF ([facility]) COVID-19, mRNA, LNP-S, PF, 100 mcg/0.5 mL dose 12/14/2020 05 :16:13 PM EST completed .5 mL JEFF ([facility]) COVID-19, mRNA, LNP-S, PF, 100 mcg/0.5 mL dose 12/14/2020 05 :16:13 PM EST completed .5 mL JEFF ([facility]) COVID-19, mRNA, LNP-S, PF, 100 mcg/0.5 mL dose 12/14/2020 05 :16:13 PM EST completed .5 mL JEFF ([facility]) COVID-19, mRNA, LNP-S, PF, 100 mcg/0.5 mL dose 12/14/2020 05 :16:13 PM EST completed .5 mL JEFF ([facility]) COVID-19, mRNA, LNP-S, PF, 100 mcg/0.5 mL dose 12/14/2020 05 :16:13 PM EST completed .5 mL JEFF ([facility]) COVID-19, mRNA, LNP-S, PF, 100 mcg/0.5 mL dose 12/14/2020 05 :16:13 PM EST completed .5 mL JEFF ([facility]) COVID-19 VACCINE Moderna 12/14/2020 12:00:00 AM EST completed [place] Vaccine Series Complete: NOThis Data was Submitted to [facility] Via [employer]. New in 2011. IIV4 08/10/2020 03:51:00 PM EDT completed .5 mL JEFF ([facility]) New in 2011. IIV4 08/10/2020 03:51:00 PM EDT completed .5 mL JEFF ([facility]) New in 2011. IIV4 08/10/2020 03:51:00 PM EDT completed .5 mL JEFF ([facility]) New in 2011. IIV4 08/10/2020 03:51:00 PM EDT completed .5 mL JEFF ([facility]) New in 2011. IIV4 08/10/2020 03:51:00 PM EDT completed .5 mL JEFF ([facility]) New in 2011. IIV4 08/10/2020 03:51:00 PM EDT completed .5 mL JEFF ([facility]) New in 2011. IIV4 08/10/2020 03:51:00 PM EDT completed .5 mL JEFF ([facility]) New in 2011. IIV4 08/10/2020 03:51:00 PM EDT completed .5 mL JEFF ([facility]) New in 2011. IIV4 08/10/2020 03:51:00 PM EDT completed .5 mL JFEF ([facility]) New in 2011. IIV4 08/10/2020 03:51:00 PM EDT completed .5 mL JEFF ([facility]) New in 2011. IIV4 08/10/2020 03:51:00 PM EDT completed .5 mL JEFF ([facility]) New in 2011. IIV4 08/10/2020 03:51:00 PM EDT completed .5 mL JEFF ([facility]) New in 2011. IIV4 08/10/2020 03:51:00 PM EDT completed .5 mL JEFF ([facility]) New in 2011. IIV4 08/10/2020 03:51:00 PM EDT completed .5 mL JEFF ([facility]) New in 2011. IIV4 08/10/2020 03:51:00 PM EDT completed .5 mL JEFF ([facility]) Medications Medication Brand Name Start Date Product Form Dose Route Admi nistrative Instructions Pharmacy Instructions Status Indications Reaction Description Data Source(s) 400 mg 08/07/2021 12:00:00 AM EDT capsule 90 TAKE ONE CAPSULE BY MOUTH THREE TIMES A DAY TAKE ONE CAPSULE BY MOUTH THREE TIMES A DAY SOLD: 08/07/2021 [facility] BLOOD SUGAR DIAGNOSTIC 07/25/2021 12:00:00 AM EDT strip 100 USE TO TEST THREE TIMES A DAY USE TO TEST THREE TIMES A DAY SOLD: 07/27/2021 [facility] 0.5 mg 07/25/2021 12:00:00 AM EDT tablet 20 TAKE ONE TABLET BY MOUTH TWICE A DAY NEEDED MAXIMUM DAILY DOSE = TWO TABLETS TAKE ONE TABLET BY MOUTH TWICE A DAY NEEDED MAXIMUM DAILY DOSE = TWO TABLETS SOLD: 07/25/2021 [facility] 30 mg 07/24/2021 12:00:00 AM EDT tablet 60 TAKE ONE TABLET BY MOUTH TWICE A DAY TAKE ONE TABLET BY MOUTH TWICE A DAY SOLD: 07/25/2021 [facility] 40 mg 07/21/2021 12:00:00 AM EDT tablet 60 TAKE ONE TABLET BY MOUTH TWICE A DAY TAKE ONE TABLET BY MOUTH TWICE A DAY SOLD: 07/23/2021 [facility] Fluticasone propionate 0.05 MG/ACTUAT Metered Dose Shamir al Ponce 50 mcg/actuation FLUTICASONE PROPIONATE 07/21/2021 12:00:00 AM EDT spray,suspension 16 INSTILL ONE SPRAY IN EACH NOSTRIL ONCE DAILY INSTILL ONE SPRAY IN EACH NOSTRIL ONCE DAILY SOLD: 07/23/2021 [facility] 24 HR Metformin hydrochloride 500 MG Extended Release Oral T ablet METFORMIN HCL 07/21/2021 12:00:00 AM EDT tablet extended release 24 hr 120 TAKE TWO TABLETS BY MOUTH TWICE A DAY TAKE TWO TABLETS BY MOUTH TWICE A DAY SOLD: 07/23/2021 [facility] 800 mg 07/21/2021 12:00:00 AM EDT tablet 90 TAKE ONE TABLET BY MOUTH THREE TIMES A DAY NEEDED TAKE ONE TABLET BY MOUTH THREE TIMES A DAY NEEDED S OLD: 07/23/2021 [facility] Trazodone Hydrochloride 100 MG Oral Tablet TRAZODONE HCL 07/18/2021 12:00:00 AM EDT tablet 30 TAKE ONE TABLET BY MOUTH AT BEDTIME TAKE ONE TABLET BY MOUTH AT BEDTIME SOLD: 07/20/2021 [facility] ziprasidone 80 MG Oral Capsule ZIPRASIDONE HCL 07/18/2021 12:00: 00 AM EDT capsule 60 TAKE ONE CAPSULE BY MOUTH TWICE A DAY TAKE ONE CAPSULE BY MOUTH TWICE A DAY SOLD: 07/20/2021 [facility] 150 mg 07/05/2021 12:00:00 AM EDT tablet 30 TAKE ONE TABLET BY MOUTH EVERY DAY TAKE ONE TABLET BY MOUTH EVERY DAY SOLD: 07/05/2021 [facility] 400 mg 07/05/2021 12:00:00 AM EDT capsule 90 TAKE ONE CAPSULE BY MOUTH THREE TIMES A DAY TAKE ONE CAPSULE BY MOUTH THREE TIMES A DAY SOLD: 07/05/2021 [facility] 150 mg 07/05/2021 12:00:00 AM EDT tablet 30 TAKE ONE TABLET BY MOUTH EVERY DAY TAKE ONE TABLET BY MOUTH EVERY DAY SOLD: 07/31/2021 [facility] 0.5 mg 06/28/2021 12:00:00 AM EDT [...] 12:00:00 AM EDT completed Alcohol Prep Pads [facility] ([facility]) ALCOHOL ANTISEPTIC PADS 06/20/2021 12:00:00 AM EDT pads, med icated 100 APPLY 1 PAD NEEDED BY TOPICAL ROUTE TO BE USE BEFORE INJECTING INSULIN AND TESTING BLOOD SUGAR APPLY 1 PAD NEEDED BY TOPICAL ROUTE T O BE USE BEFORE INJECTING INSULIN AND TESTING BLOOD SUGAR SOLD: 06/20/2021 [facility] 31 gauge x 5/16" 06/16/2021 12:00:00 AM [...] BY MOUTH TWICE A DAY SOLD: 06/27/2021 [facility] 30 mg 06/13/2021 12:00:00 AM EDT [...] 30 mg by mouth completed <td ID="Medic ationRxNorm_4">520600</td><td ID="MedicationMedication_4">buspirone</td><td ID="MedicationRoute_4">by mouth</td><td ID="MedicationRouteConcept_4">Q80569</td><td ID="MedicationStartDate_4">06/07/2021</td><td ID="MedicationStopDate_4">08/06/2021</td><td ID="MedicationDosageFrequency_4">twice a day</td><td ID="MedicationDuration_4">30</td><td ID="MedicationFormulaStrength_4">30 mg</td><td ID="MedicationDosageForm_4">tablet</td><td ID="MedicationDosageFormCode_4"></td><td ID="MedicationDosageDescription_4"></td><td ID="MedicationMedicationId_4">[id number]</td><td ID="MedicationAccount_4">[id number]</td><td ID="MedicationNpid_4">[id number]</td><td ID="MedicationAuthorFirstName_4">Susanne</td><td ID="MedicationAuthorLastName_4">Irvin</td><td ID="MedicationTaxonomyCode_4">[id number]</td><td ID="MedicationTaxonomyDesc_4">Nurse Practitioner</td><td ID="MedicationPhoneNumber_4">[phone]</td> [facility] ([facility]) buspirone hydrochloride 30 MG Oral Tablet buspirone 2020 12:00:00 AM EDT 30 mg by mouth completed <td ID="Medic ationRxNorm_6">207987</td><td ID="MedicationMedication_6">buspirone</td><td ID="MedicationRoute_6">by mouth</td><td ID="MedicationRouteConcept_6">X47400</td><td ID="MedicationStartDate_6">06/07/2021</td><td ID="MedicationStopDate_6">08/06/2021</td><td ID="MedicationDosageFrequency_6">twice a day</td><td ID="MedicationDuration_6">30</td><td ID="MedicationFormulaStrength_6">30 mg</td><td ID="MedicationDosageForm_6">tablet</td><td ID="MedicationDosageFormCode_6"></td><td ID="MedicationDosageDescription_6"></td><td ID="MedicationMedicationId_6">[id number]</td><td ID="MedicationAccount_6">[id number]</td><td ID="MedicationNpid_6">[id number]</td><td ID="MedicationAuthorFirstName_6">Susanne</td><td ID="MedicationAuthorLastName_6">Irvin</td><td ID="MedicationTaxonomyCode_6">[id number]</td><td ID="MedicationTaxonomyDesc_6">Nurse Practitioner</td><td ID="MedicationPhoneNumber_6">[phone]</td> [facility] ([facility]) 400 mg 06/05/2021 12:00:00 AM EDT capsule 90 TAKE ONE CAPSULE BY MOUTH THREE TIMES A DAY TAKE ONE CAPSULE BY MOUTH THREE TIMES A DAY SOLD: 06/05/2021 [facility] 800 mg 05/30/2021 12:00:00 AM EDT [...] AM EDT 0.5 mg completed <td ID="Medicat ionRxNorm_3">400728</td><td ID="MedicationMedication_3">clonazepam</td><td ID="MedicationRoute_3"></td><td ID="MedicationRouteConcept_3"></td><td ID="MedicationStartDate_3">05/30/2021</td><td ID="MedicationStopDate_3">06/29/2021</td><td ID="MedicationDosageFrequency_3"></td><td ID="MedicationDuration_3">30</td><td ID="MedicationFormulaStrength_3">0.5 mg</td><td ID="MedicationDosageForm_3">tablet</td><td ID="MedicationDosageFormCode_3"></td><td ID="MedicationDosageDescription_3"></td><td ID="MedicationMedicationId_3">[id number]</td><td ID="MedicationAccount_3">[id number]</td><td ID="MedicationNpid_3">[id number]</td><td ID="MedicationAuthorFirstName_3">Russell</td><td ID="MedicationAuthorLastName_3">Montenegro</td><td ID="MedicationTaxonomyCode_3">[id number]</td><td ID="MedicationTaxonomyDesc_3">Nurse Practitioner</td><td ID="MedicationPhoneNumber_3">[phone]</td> [facility] ([facility]) 800 mg 05/30/2021 12:00:00 AM EDT tablet 90 TAKE ONE TABLET BY MOUTH THREE TIMES A DAY NEEDED MAXIMUM DAILY DOSE = THREE TABLETS TAKE ONE TABLET BY MOUTH THREE TIMES A DAY NEEDED MAXIMUM DAILY DOSE = THREE TABLETS SOLD: 06/25/2021 [facility] 24 HR Metformin hydrochloride 500 MG Extended [...] buspirone hydrochloride 30 MG Oral Tablet buspirone 06/29/ 2021 12:00:00 AM EDT 30 mg by mouth completed <td ID="Medic ationRxNorm_5">753034</td><td ID="MedicationMedication_5">buspirone</td><td ID="MedicationRoute_5">by mouth</td><td ID="MedicationRouteConcept_5">Z23342</td><td ID="MedicationStartDate_5">04/10/2021</td><td ID="MedicationStopDate_5">05/10/2021</td><td ID="MedicationDosageFrequency_5">twice a day</td><td ID="MedicationDuration_5">30</td><td ID="MedicationFormulaStrength_5">30 mg</td><td ID="MedicationDosageForm_5">tablet</td><td ID="MedicationDosageFormCode_5"></td><td ID="MedicationDosageDescription_5"></td><td ID="MedicationMedicationId_5">[id number]</td><td ID="MedicationAccount_5">[id number]</td><td ID="MedicationNpid_5">[id number]</td><td ID="MedicationAuthorFirstName_5">Adrienne</td><td ID="MedicationAuthorLastName_5">Scandia</td><td ID="MedicationTaxonomyCode_5">[id number]</td><td ID="MedicationTaxonomyDesc_5">Psychiatric/Mental Health</td><td ID="MedicationPhoneNumber_5">[phone]</td> [facility] ([facility]) 30 mg 04/10/2021 12:00:00 AM EDT tablet [...] TABLET BY MOUTH AT BEDTIME SOLD: 03/23/2021 [facility] Fenofibrate 134 MG Oral Capsule FENOFIBRATE,MICRONIZED 03/23 12:00:00 AM EDT capsule 30 TAKE ONE CAPSULE BY MOUTH DA GISSELLE TAKE ONE CAPSULE BY MOUTH DAILY SOLD: 03/23/2021 [facility] 20 mg 03/23/2021 12:00:00 AM EDT tablet 30 TAKE ONE TABLET BY MOUTH EVERY DAY TAKE ONE TABLET BY MOUTH EVERY DAY SOLD: 03/23/2021 [facility] Trazodone Hydrochloride 100 MG Oral Tablet trazodone 03/22 12:00:00 AM EDT 100 mg completed <td ID="Medica tionRxNorm_5">559415</td><td ID="MedicationMedication_5">trazodone</td><td ID="MedicationRoute_5"></td><td ID="MedicationRouteConcept_5"></td><td ID="MedicationStartDate_5">03/22/2021</td><td ID="MedicationStopDate_5"></td><td ID="MedicationDosageFrequency_5">at bedtime</td><td ID="MedicationDuration_5"></td><td ID="MedicationFormulaStrength_5">100 mg</td><td ID="MedicationDosageForm_5">tablet</td><td ID="MedicationDosageFormCode_5"></td><td ID="MedicationDosageDescription_5"></td><td ID="MedicationMedicationId_5">[id number]</td><td ID="MedicationAccount_5">[id number]</td><td ID="MedicationNpid_5">[id number]</td><td ID="MedicationAuthorFirstName_5">Adrienne</td><td ID="MedicationAuthorLastName_5">Ricky</td><td ID="MedicationTaxonomyCode_5">[id number]</td><td ID="MedicationTaxonomyDesc_5">Psychiatric/Mental Health</td><td ID="MedicationPhoneNumber_5">[phone]</td> [facility] ([facility]) Trazodone Hydrochloride 100 MG Oral Tablet trazodone 03/22 12:00:00 AM EDT 100 mg completed <td ID="Medica tionRxNorm_4">350576</td><td ID="MedicationMedication_4">trazodone</td><td ID="MedicationRoute_4"></td><td ID="MedicationRouteConcept_4"></td><td ID="MedicationStartDate_4">03/22/2021</td><td ID="MedicationStopDate_4"></td><td ID="MedicationDosageFrequency_4">at bedtime</td><td ID="MedicationDuration_4"></td><td ID="MedicationFormulaStrength_4">100 mg</td><td ID="MedicationDosageForm_4">tablet</td><td ID="MedicationDosageFormCode_4"></td><td ID="MedicationDosageDescription_4"></td><td ID="MedicationMedicationId_4">[id number]</td><td ID="MedicationAccount_4">[id number]</td><td ID="MedicationNpid_4">[id number]</td><td ID="MedicationAuthorFirstName_4">Adrienne</td><td ID="MedicationAuthorLastName_4">Scandia</td><td ID="MedicationTaxonomyCode_4">[id number]</td><td ID="MedicationTaxonomyDesc_4">Psychiatric/Mental Health</td><td ID="MedicationPhoneNumber_4">[phone]</td> [facility] ([facility]) Trazodone Hydrochloride 100 MG Oral Tablet trazodone 03/22 12:00:00 AM EDT 100 mg completed <td ID="Medica tionRxNorm_2">664407</td><td ID="MedicationMedication_2">trazodone</td><td ID="MedicationRoute_2"></td><td ID="MedicationRouteConcept_2"></td><td ID="MedicationStartDate_2">03/22/2021</td><td ID="MedicationStopDate_2"></td><td ID="MedicationDosageFrequency_2">at bedtime</td><td ID="MedicationDuration_2"></td><td ID="MedicationFormulaStrength_2">100 mg</td><td ID="MedicationDosageForm_2">tablet</td><td ID="MedicationDosageFormCode_2"></td><td ID="MedicationDosageDescription_2"></td><td ID="MedicationMedicationId_2">59007</td><td ID="MedicationAccount_2">[id number]</td><td ID="MedicationNpid_2">[id number]</td><td ID="MedicationAuthorFirstName_2">Adrienne</td><td ID="MedicationAuthorLastName_2">Ricky</td><td ID="MedicationTaxonomyCode_2">[id number]</td><td ID="MedicationTaxonomyDesc_2">Psychiatric/Mental Health</td><td ID="MedicationPhoneNumber_2">[phone]</td> [facility] ([facility]) 800 mg 03/06/2021 12:00:00 AM EDT tablet [...] 150 mg by mouth completed <td ID="Medica tionRxNorm_4">440222</td><td ID="MedicationMedication_4">lamotrigine</td><td ID="MedicationRoute_4">by mouth</td><td ID="MedicationRouteConcept_4">Z77563</td><td ID="MedicationStartDate_4">02/22/2021</td><td ID="MedicationStopDate_4"></td><td ID="MedicationDosageFrequency_4">once a day</td><td ID="MedicationDuration_4"></td><td ID="MedicationFormulaStrength_4">150 mg</td><td ID="MedicationDosageForm_4">tablet</td><td ID="MedicationDosageFormCode_4"></td><td ID="MedicationDosageDescription_4"></td><td ID="MedicationMedicationId_4">98355</td><td ID="MedicationAccount_4">[id number]</td><td ID="MedicationNpid_4">[id number]</td><td ID="MedicationAuthorFirstName_4">Adrienne</td><td ID="MedicationAuthorLastName_4">Ricky</td><td ID="MedicationTaxonomyCode_4">[id number]</td><td ID="MedicationTaxonomyDesc_4">Psychiatric/Mental Health</td><td ID="MedicationPhoneNumber_4">[phone]</td> [facility] ([facility]) ziprasidone 80 MG Oral Capsule ZIPRASIDONE HCL [...] 30 mg by mouth completed <td ID="Medic ationRxNorm_3">030773</td><td ID="MedicationMedication_3">buspirone</td><td ID="MedicationRoute_3">by mouth</td><td ID="MedicationRouteConcept_3">S50119</td><td ID="MedicationStartDate_3">02/22/2021</td><td ID="MedicationStopDate_3"></td><td ID="MedicationDosageFrequency_3">three times a day</td><td ID="MedicationDuration_3"></td><td ID="MedicationFormulaStrength_3">30 mg</td><td ID="MedicationDosageForm_3">tablet</td><td ID="MedicationDosageFormCode_3"></td><td ID="MedicationDosageDescription_3"></td><td ID="MedicationMedicationId_3">74500</td><td ID="MedicationAccount_3">[id number]</td><td ID="MedicationNpid_3">[id number]</td><td ID="MedicationAuthorFirstName_3">Adrienne</td><td ID="MedicationAuthorLastName_3">Scandia</td><td ID="MedicationTaxonomyCode_3">[id number]</td><td ID="MedicationTaxonomyDesc_3">Psychiatric/Mental Health</td><td ID="MedicationPhoneNumber_3">[phone]</td> [facility] ([facility]) 150 mg 02/22/2021 12:00:00 AM EDT tablet 30 TAKE ONE TABLET BY MOUTH EVERY DAY TAKE ONE TABLET BY MOUTH EVERY DAY SOLD: 02/22/2021 [facility] lamotrigine 150 MG Oral Tablet lamotrigine 02/22/2021 12:00:00 AM EDT 150 mg by mouth completed <td ID="Medica tionRxNorm_3">959595</td><td ID="MedicationMedication_3">lamotrigine</td><td ID="MedicationRoute_3">by mouth</td><td ID="MedicationRouteConcept_3">H34396</td><td ID="MedicationStartDate_3">02/22/2021</td><td ID="MedicationStopDate_3"></td><td ID="MedicationDosageFrequency_3">once a day</td><td ID="MedicationDuration_3"></td><td ID="MedicationFormulaStrength_3">150 mg</td><td ID="MedicationDosageForm_3">tablet</td><td ID="MedicationDosageFormCode_3"></td><td ID="MedicationDosageDescription_3"></td><td ID="MedicationMedicationId_3">16846</td><td ID="MedicationAccount_3">[id number]</td><td ID="MedicationNpid_3">[id number]</td><td ID="MedicationAuthorFirstName_3">Adrienne</td><td ID="MedicationAuthorLastName_3">Ricky</td><td ID="MedicationTaxonomyCode_3">[id number]</td><td ID="MedicationTaxonomyDesc_3">Psychiatric/Mental Health</td><td ID="MedicationPhoneNumber_3">[phone]</td> [facility] ([facility]) 25 mcg 02/22/2021 12:00:00 AM EDT tablet [...] 150 mg by mouth completed <td ID="Medica tionRxNorm_5">461076</td><td ID="MedicationMedication_5">lamotrigine</td><td ID="MedicationRoute_5">by mouth</td><td ID="MedicationRouteConcept_5">Y11945</td><td ID="MedicationStartDate_5">02/22/2021</td><td ID="MedicationStopDate_5">08/06/2021</td><td ID="MedicationDosageFrequency_5">once a day</td><td ID="MedicationDuration_5">30</td><td ID="MedicationFormulaStrength_5">150 mg</td><td ID="MedicationDosageForm_5">tablet</td><td ID="MedicationDosageFormCode_5"></td><td ID="MedicationDosageDescription_5"></td><td ID="MedicationMedicationId_5">33000</td><td ID="MedicationAccount_5">[id number]</td><td ID="MedicationNpid_5">[id number]</td><td ID="MedicationAuthorFirstName_5">Susanne</td><td ID="MedicationAuthorLastName_5">Irvin</td><td ID="MedicationTaxonomyCode_5">[id number]</td><td ID="MedicationTaxonomyDesc_5">Nurse Practitioner</td><td ID="MedicationPhoneNumber_5">[phone]</td> [facility] ([facility]) Clonazepam 0.5 MG Oral Tablet clonazepam 02/22/2021 12:00:00 AM EDT 0.5 mg by mouth completed <td ID="Medica tionRxNorm_2">965446</td><td ID="MedicationMedication_2">clonazepam</td><td ID="MedicationRoute_2">by mouth</td><td ID="MedicationRouteConcept_2">N19848</td><td ID="MedicationStartDate_2">02/22/2021</td><td ID="MedicationStopDate_2"></td><td ID="MedicationDosageFrequency_2"></td><td ID="MedicationDuration_2"></td><td ID="MedicationFormulaStrength_2">0.5 mg</td><td ID="MedicationDosageForm_2">tablet</td><td ID="MedicationDosageFormCode_2"></td><td ID="MedicationDosageDescription_2">as needed</td><td ID="MedicationMedicationId_2">48603</td><td ID="MedicationAccount_2">[id number]</td><td ID="MedicationNpid_2">[id number]</td><td ID="MedicationAuthorFirstName_2">Adrienne</td><td ID="MedicationAuthorLastName_2">Scandia</td><td ID="MedicationTaxonomyCode_2">[id number]</td><td ID="MedicationTaxonomyDesc_2">Psychiatric/Mental Health</td><td ID="MedicationPhoneNumber_2">[phone]</td> [facility] ([facility]) 25 mcg 02/22/2021 12:00:00 AM EDT tablet [...] 0.5 mg by mouth completed <td ID="Medica tionRxNorm_6">301320</td><td ID="MedicationMedication_6">clonazepam</td><td ID="MedicationRoute_6">by mouth</td><td ID="MedicationRouteConcept_6">I07995</td><td ID="MedicationStartDate_6">12/11/2020</td><td ID="MedicationStopDate_6"></td><td ID="MedicationDosageFrequency_6"></td><td ID="MedicationDuration_6"></td><td ID="MedicationFormulaStrength_6">0.5 mg</td><td ID="MedicationDosageForm_6">tablet</td><td ID="MedicationDosageFormCode_6"></td><td ID="MedicationDosageDescription_6">as needed</td><td ID="MedicationMedicationId_6">70365</td><td ID="MedicationAccount_6">[id number]</td><td ID="MedicationNpid_6">[id number]</td><td ID="MedicationAuthorFirstName_6">Russell</td><td ID="MedicationAuthorLastName_6">Montenegro</td><td ID="MedicationTaxonomyCode_6">[id number]</td><td ID="MedicationTaxonomyDesc_6">Nurse Practitioner</td><td ID="MedicationPhoneNumber_6">[phone]</td> [facility] ([facility]) Propranolol Hydrochloride 40 MG Oral Tablet propranolol 12/11/2020 12:00:00 AM EST 40 mg by mouth completed <td ID="MedicationRxNorm_5">036421</td><td ID="MedicationMedication_5">propranolol</td><td ID="MedicationRoute_5">by mouth</td><td ID="MedicationRouteConcept_5">D15313</td><td ID="MedicationStartDate_5">12/11/2020</td><td ID="MedicationStopDate_5"></td><td ID="MedicationDosageFrequency_5">twice a day</td><td ID="MedicationDuration_5"></td><td ID="MedicationFormulaStrength_5">40 mg</td><td ID="MedicationDosageForm_5">tablet</td><td ID="MedicationDosageFormCode_5"></td><td ID="MedicationDosageDescription_5"></td><td ID="MedicationMedicationId_5">63024</td><td ID="MedicationAccount_5">[id number]</td><td ID="MedicationNpid_5">[id number]</td><td ID="MedicationAuthorFirstName_5">Adrienne</td><td ID="MedicationAuthorLastName_5">Ricky</td><td ID="MedicationTaxonomyCode_5">[id number]</td><td ID="MedicationTaxonomyDesc_5">Psychiatric/Mental Health</td><td ID="MedicationPhoneNumber_5">[phone]</td> [facility] ([facility]) Propranolol Hydrochloride 40 MG Oral Tablet propranolol 12/11/2020 12:00:00 AM EST 40 mg completed <td ID ="MedicationRxNorm_8">739670</td><td ID="MedicationMedication_8">propranolol</td><td ID="MedicationRoute_8"></td><td ID="MedicationRouteConcept_8"></td><td ID="MedicationStartDate_8">12/11/2020</td><td ID="MedicationStopDate_8">12/11/2020</td><td ID="MedicationDosageFrequency_8"></td><td ID="MedicationDuration_8"></td><td ID="MedicationFormulaStrength_8">40 mg</td><td ID="MedicationDosageForm_8">tablet</td><td ID="MedicationDosageFormCode_8"></td><td ID="MedicationDosageDescription_8"></td><td ID="MedicationMedicationId_8">90309</td><td ID="MedicationAccount_8">[id number]</td><td ID="MedicationNpid_8"></td><td ID="MedicationAuthorFirstName_8"></td><td ID="MedicationAuthorLastName_8"></td><td ID="MedicationTaxonomyCode_8"></td><td ID="MedicationTaxonomyDesc_8"></td><td ID="MedicationPhoneNumber_8"></td> [facility] ([facility]) Propranolol Hydrochloride 40 MG Oral Tablet propranolol 12/11/2020 12:00:00 AM EST 40 mg by mouth completed <td ID="MedicationRxNorm_3">826359</td><td ID="MedicationMedication_3">propranolol</td><td ID="MedicationRoute_3">by mouth</td><td ID="MedicationRouteConcept_3">O65868</td><td ID="MedicationStartDate_3">12/11/2020</td><td ID="MedicationStopDate_3"></td><td ID="MedicationDosageFrequency_3">twice a day</td><td ID="MedicationDuration_3"></td><td ID="MedicationFormulaStrength_3">40 mg</td><td ID="MedicationDosageForm_3">tablet</td><td ID="MedicationDosageFormCode_3"></td><td ID="MedicationDosageDescription_3"></td><td ID="MedicationMedicationId_3">34110</td><td ID="MedicationAccount_3">[id number]</td><td ID="MedicationNpid_3">[id number]</td><td ID="MedicationAuthorFirstName_3">Adrienne</td><td ID="MedicationAuthorLastName_3">Ricky</td><td ID="MedicationTaxonomyCode_3">[id number]</td><td ID="MedicationTaxonomyDesc_3">Psychiatric/Mental Health</td><td ID="MedicationPhoneNumber_3">[phone]</td> [facility] ([facility]) Propranolol Hydrochloride 40 MG Oral Tablet propranolol 12/11/2020 12:00:00 AM EST 40 mg by mouth completed <td ID="MedicationRxNorm_2">962963</td><td ID="MedicationMedication_2">propranolol</td><td ID="MedicationRoute_2">by mouth</td><td ID="MedicationRouteConcept_2">U16099</td><td ID="MedicationStartDate_2">12/11/2020</td><td ID="MedicationStopDate_2"></td><td ID="MedicationDosageFrequency_2">twice a day</td><td ID="MedicationDuration_2"></td><td ID="MedicationFormulaStrength_2">40 mg</td><td ID="MedicationDosageForm_2">tablet</td><td ID="MedicationDosageFormCode_2"></td><td ID="MedicationDosageDescription_2"></td><td ID="MedicationMedicationId_2">68566</td><td ID="MedicationAccount_2">[id number]</td><td ID="MedicationNpid_2">[id number]</td><td ID="MedicationAuthorFirstName_2">Adrienne</td><td ID="MedicationAuthorLastName_2">Ricky</td><td ID="MedicationTaxonomyCode_2">[id number]</td><td ID="MedicationTaxonomyDesc_2">Psychiatric/Mental Health</td><td ID="MedicationPhoneNumber_2">[phone]</td> [facility] ([facility]) ziprasidone 80 MG Oral Capsule ZIPRASIDONE HCL 12/11/2020 12:00: 00 AM EST capsule 60 TAKE ONE CAPSULE BY MOUTH TWICE A DAY TAKE ONE CAPSULE BY MOUTH TWICE A DAY SOLD: 01/16/2021 [facility] Propranolol Hydrochloride 40 MG Oral Tablet propranolol 12/11/2020 12:00:00 AM EST 40 mg by mouth completed <td ID="MedicationRxNorm_1">291970</td><td ID="MedicationMedication_1">propranolol</td><td ID="MedicationRoute_1">by mouth</td><td ID="MedicationRouteConcept_1">R65703</td><td ID="MedicationStartDate_1">12/11/2020</td><td ID="MedicationStopDate_1"></td><td ID="MedicationDosageFrequency_1">twice a day</td><td ID="MedicationDuration_1"></td><td ID="MedicationFormulaStrength_1">40 mg</td><td ID="MedicationDosageForm_1">tablet</td><td ID="MedicationDosageFormCode_1"></td><td ID="MedicationDosageDescription_1"></td><td ID="MedicationMedicationId_1">88934</td><td ID="MedicationAccount_1">[id number]</td><td ID="MedicationNpid_1">[id number]</td><td ID="MedicationAuthorFirstName_1">Adrienne</td><td ID="MedicationAuthorLastName_1">Ricky</td><td ID="MedicationTaxonomyCode_1">[id number]</td><td ID="MedicationTaxonomyDesc_1">Psychiatric/Mental Health</td><td ID="MedicationPhoneNumber_1">[phone]</td> [facility] ([facility]) 1 mg 12/11/2020 12:00:00 AM EST capsule [...] 0.5 mg by mouth completed <td ID="Medica tionRxNorm_5">514581</td><td ID="MedicationMedication_5">clonazepam</td><td ID="MedicationRoute_5">by mouth</td><td ID="MedicationRouteConcept_5">Y46722</td><td ID="MedicationStartDate_5">12/11/2020</td><td ID="MedicationStopDate_5"></td><td ID="MedicationDosageFrequency_5"></td><td ID="MedicationDuration_5"></td><td ID="MedicationFormulaStrength_5">0.5 mg</td><td ID="MedicationDosageForm_5">tablet</td><td ID="MedicationDosageFormCode_5"></td><td ID="MedicationDosageDescription_5">as needed</td><td ID="MedicationMedicationId_5">13994</td><td ID="MedicationAccount_5">[id number]</td><td ID="MedicationNpid_5">[id number]</td><td ID="MedicationAuthorFirstName_5">Russell</td><td ID="MedicationAuthorLastName_5">Montenegro</td><td ID="MedicationTaxonomyCode_5">[id number]</td><td ID="MedicationTaxonomyDesc_5">Nurse Practitioner</td><td ID="MedicationPhoneNumber_5">[phone]</td> [facility] ([facility]) 40 mg 12/04/2020 12:00:00 AM EST capsule,delayed [...] DOSE = 1 TABLET SOLD: 11/23/2020 [facility] BLOOD SUGAR DIAGNOSTIC 11/16/2020 12:00:00 AM EST [...] MOUTH TWICE A DAY SOLD: 12/26/2020 [facility] BLOOD SUGAR DIAGNOSTIC 11/16/2020 12:00:00 AM [...] MOUTH EVERY DAY SOLD: 03/02/2021 [facility] Caittojoesph Dumont 11/15/2020 12:00:00 AM EST [facility] ([facility]) 800 mg 11/11/2020 12:00:00 AM EST tablet [...] EST 80 mg by mouth completed <td ID="La dicationRxNorm_1">651449</td><td ID="MedicationMedication_1">ziprasidone HCl</td><td ID="MedicationRoute_1">by mouth</td><td ID="MedicationRouteConcept_1">U26181</td><td ID="MedicationStartDate_1">10/25/2020</td><td ID="MedicationStopDate_1"></td><td ID="MedicationDosageFrequency_1">twice a day</td><td ID="MedicationDuration_1"></td><td ID="MedicationFormulaStrength_1">80 mg</td><td ID="MedicationDosageForm_1">capsule</td><td ID="MedicationDosageFormCode_1"></td><td ID="MedicationDosageDescription_1"></td><td ID="MedicationMedicationId_1">89127</td><td ID="MedicationAccount_1">[id number]</td><td ID="MedicationNpid_1">[id number]</td><td ID="MedicationAuthorFirstName_1">Adrienne</td><td ID="MedicationAuthorLastName_1">Ricky</td><td ID="MedicationTaxonomyCode_1">[id number]</td><td ID="MedicationTaxonomyDesc_1">Psychiatric/Mental Health</td><td ID="MedicationPhoneNumber_1">[phone]</td> [facility] ([facility]) ziprasidone 80 MG Oral Capsule ziprasidone HCl 10/25/2020 12:00:00 AM EST 80 mg by mouth completed <td ID="Me dicationRxNorm_3">843047</td><td ID="MedicationMedication_3">ziprasidone HCl</td><td ID="MedicationRoute_3">by mouth</td><td ID="MedicationRouteConcept_3">X69506</td><td ID="MedicationStartDate_3">10/25/2020</td><td ID="MedicationStopDate_3"></td><td ID="MedicationDosageFrequency_3">twice a day</td><td ID="MedicationDuration_3"></td><td ID="MedicationFormulaStrength_3">80 mg</td><td ID="MedicationDosageForm_3">capsule</td><td ID="MedicationDosageFormCode_3"></td><td ID="MedicationDosageDescription_3"></td><td ID="MedicationMedicationId_3">85521</td><td ID="MedicationAccount_3">[id number]</td><td ID="MedicationNpid_3">[id number]</td><td ID="MedicationAuthorFirstName_3">Russell</td><td ID="MedicationAuthorLastName_3">Montenegro</td><td ID="MedicationTaxonomyCode_3">[id number]</td><td ID="MedicationTaxonomyDesc_3">Nurse Practitioner</td><td ID="MedicationPhoneNumber_3">[phone]</td> [facility] ([facility]) ziprasidone 80 MG Oral Capsule ziprasidone HCl 10/25/2020 12:00:00 AM EST 80 mg by mouth completed <td ID="Me dicationRxNorm_7">733725</td><td ID="MedicationMedication_7">ziprasidone HCl</td><td ID="MedicationRoute_7">by mouth</td><td ID="MedicationRouteConcept_7">Z31147</td><td ID="MedicationStartDate_7">10/25/2020</td><td ID="MedicationStopDate_7"></td><td ID="MedicationDosageFrequency_7">twice a day</td><td ID="MedicationDuration_7"></td><td ID="MedicationFormulaStrength_7">80 mg</td><td ID="MedicationDosageForm_7">capsule</td><td ID="MedicationDosageFormCode_7"></td><td ID="MedicationDosageDescription_7"></td><td ID="MedicationMedicationId_7">45281</td><td ID="MedicationAccount_7">[id number]</td><td ID="MedicationNpid_7">[id number]</td><td ID="MedicationAuthorFirstName_7">Russell</td><td ID="MedicationAuthorLastName_7">Montenegro</td><td ID="MedicationTaxonomyCode_7">[id number]</td><td ID="MedicationTaxonomyDesc_7">Nurse Practitioner</td><td ID="MedicationPhoneNumber_7">[phone]</td> [facility] ([facility]) ziprasidone 80 MG Oral Capsule ziprasidone HCl 10/25/2020 12:00:00 AM EST 80 mg by mouth completed <td ID="Me dicationRxNorm_4">[id number]</td><td ID="MedicationMedication_4">ziprasidone HCl</td><td ID="MedicationRoute_4">by mouth</td><td ID="MedicationRouteConcept_4">[id number]</td><td ID="MedicationStartDate_4">10/25/2020</td><td ID="MedicationStopDate_4">08/06/2021</td><td ID="MedicationDosageFrequency_4">twice a day</td><td ID="MedicationDuration_4">30</td><td ID="MedicationFormulaStrength_4">80 mg</td><td ID="MedicationDosageForm_4">capsule</td><td ID="MedicationDosageFormCode_4"></td><td ID="MedicationDosageDescription_4"></td><td ID="MedicationMedicationId_4">[id number]</td><td ID="MedicationAccount_4">[id number]</td><td ID="MedicationNpid_4">[id number]</td><td ID="MedicationAuthorFirstName_4">Susanne</td><td ID="MedicationAuthorLastName_4">Irvin</td><td ID="MedicationTaxonomyCode_4">[id number]</td><td ID="MedicationTaxonomyDesc_4">Nurse Practitioner</td><td ID="MedicationPhoneNumber_4">[phone]</td> [facility] ([facility]) ziprasidone 80 MG Oral Capsule ziprasidone HCl 10/25/2020 12:00:00 AM EST 80 mg by mouth completed <td ID="Me dicationRxNorm_2">860724</td><td ID="MedicationMedication_2">ziprasidone HCl</td><td ID="MedicationRoute_2">by mouth</td><td ID="MedicationRouteConcept_2">X30374</td><td ID="MedicationStartDate_2">10/25/2020</td><td ID="MedicationStopDate_2"></td><td ID="MedicationDosageFrequency_2">twice a day</td><td ID="MedicationDuration_2"></td><td ID="MedicationFormulaStrength_2">80 mg</td><td ID="MedicationDosageForm_2">capsule</td><td ID="MedicationDosageFormCode_2"></td><td ID="MedicationDosageDescription_2"></td><td ID="MedicationMedicationId_2">[id number]</td><td ID="MedicationAccount_2">[id number]</td><td ID="MedicationNpid_2">[id number]</td><td ID="MedicationAuthorFirstName_2">Adrienne</td><td ID="MedicationAuthorLastName_2">Ricky</td><td ID="MedicationTaxonomyCode_2">[id number]</td><td ID="MedicationTaxonomyDesc_2">Psychiatric/Mental Health</td><td ID="MedicationPhoneNumber_2">[phone]</td> [facility] ([facility]) 20 mg 10/25/2020 12:00:00 AM EST tablet [...] 80 mg by mouth completed <td ID="Me dicationRxNorm_6">163451</td><td ID="MedicationMedication_6">ziprasidone HCl</td><td ID="MedicationRoute_6">by mouth</td><td ID="MedicationRouteConcept_6">A44237</td><td ID="MedicationStartDate_6">10/25/2020</td><td ID="MedicationStopDate_6">08/06/2021</td><td ID="MedicationDosageFrequency_6">twice a day</td><td ID="MedicationDuration_6">30</td><td ID="MedicationFormulaStrength_6">80 mg</td><td ID="MedicationDosageForm_6">capsule</td><td ID="MedicationDosageFormCode_6"></td><td ID="MedicationDosageDescription_6"></td><td ID="MedicationMedicationId_6">[id number]</td><td ID="MedicationAccount_6">[id number]</td><td ID="MedicationNpid_6">[id number]</td><td ID="MedicationAuthorFirstName_6">Susanne</td><td ID="MedicationAuthorLastName_6">Irvin</td><td ID="MedicationTaxonomyCode_6">[id number]</td><td ID="MedicationTaxonomyDesc_6">Nurse Practitioner</td><td ID="MedicationPhoneNumber_6">[phone]</td> [facility] ([facility]) 20 mg 10/25/2020 12:00:00 AM EST tablet [...] 12:00:00 AM EST ORAL act [facility] ([facility]) 0.5 mg 2020 12:00:00 AM [...] CAPSULE BY MOUTH EVERY DAY SOLD: 11/14/2020 [facility] Fenofibrate 134 MG Oral Capsule FENOFIBRATE,MICRONIZED 09/12 12:00:00 AM EST capsule 30 TAKE ONE CAPSULE BY MOUTH EV NAI DAY TAKE ONE CAPSULE BY MOUTH EVERY DAY SOLD: 12/13/2020 [facility] BLOOD SUGAR DIAGNOSTIC 09/12/2020 12:00:00 [...] MOUTH TWICE A DAY SOLD: 08/31/2020 [facility] Prazosin 1 MG Oral Capsule prazosin 08/24/2020 12:00:00 AM EST 1 mg by mouth completed <td ID="Medicat ionRxNorm_3">016814</td><td ID="MedicationMedication_3">prazosin</td><td ID="MedicationRoute_3">by mouth</td><td ID="MedicationRouteConcept_3">Z50132</td><td ID="MedicationStartDate_3">08/24/2020</td><td ID="MedicationStopDate_3"></td><td ID="MedicationDosageFrequency_3">at bedtime</td><td ID="MedicationDuration_3"></td><td ID="MedicationFormulaStrength_3">1 mg</td><td ID="MedicationDosageForm_3">capsule</td><td ID="MedicationDosageFormCode_3"></td><td ID="MedicationDosageDescription_3"></td><td ID="MedicationMedicationId_3">[id number]</td><td ID="MedicationAccount_3">[id number]</td><td ID="MedicationNpid_3">[id number]</td><td ID="MedicationAuthorFirstName_3">Adrienne</td><td ID="MedicationAuthorLastName_3">Scandia</td><td ID="MedicationTaxonomyCode_3">[id number]</td><td ID="MedicationTaxonomyDesc_3">Psychiatric/Mental Health</td><td ID="MedicationPhoneNumber_3">[phone]</td> [facility] ([facility]) 1 mg 08/24/2020 12:00:00 AM EST capsule [...] 1 mg by mouth completed <td ID="Medicat ionRxNorm_2">481156</td><td ID="MedicationMedication_2">prazosin</td><td ID="MedicationRoute_2">by mouth</td><td ID="MedicationRouteConcept_2">K22621</td><td ID="MedicationStartDate_2">08/24/2020</td><td ID="MedicationStopDate_2"></td><td ID="MedicationDosageFrequency_2">at bedtime</td><td ID="MedicationDuration_2"></td><td ID="MedicationFormulaStrength_2">1 mg</td><td ID="MedicationDosageForm_2">capsule</td><td ID="MedicationDosageFormCode_2"></td><td ID="MedicationDosageDescription_2"></td><td ID="MedicationMedicationId_2">[id number]</td><td ID="MedicationAccount_2">[id number]</td><td ID="MedicationNpid_2">[id number]</td><td ID="MedicationAuthorFirstName_2">Adrienne</td><td ID="MedicationAuthorLastName_2">Ricky</td><td ID="MedicationTaxonomyCode_2">[id number]</td><td ID="MedicationTaxonomyDesc_2">Psychiatric/Mental Health</td><td ID="MedicationPhoneNumber_2">[phone]</td> [facility] ([facility]) Clonazepam 0.5 MG Oral Tablet clonazepam 08/24/2020 12:00:00 AM EST 0.5 mg by mouth completed <td ID="Medica tionRxNorm_2">972466</td><td ID="MedicationMedication_2">clonazepam</td><td ID="MedicationRoute_2">by mouth</td><td ID="MedicationRouteConcept_2">Q84961</td><td ID="MedicationStartDate_2">08/24/2020</td><td ID="MedicationStopDate_2"></td><td ID="MedicationDosageFrequency_2">once a day</td><td ID="MedicationDuration_2"></td><td ID="MedicationFormulaStrength_2">0.5 mg</td><td ID="MedicationDosageForm_2">tablet</td><td ID="MedicationDosageFormCode_2"></td><td ID="MedicationDosageDescription_2"></td><td ID="MedicationMedicationId_2">[id number]</td><td ID="MedicationAccount_2">[id number]</td><td ID="MedicationNpid_2">[id number]</td><td ID="MedicationAuthorFirstName_2">Susanne</td><td ID="MedicationAuthorLastName_2">Irvin</td><td ID="MedicationTaxonomyCode_2">[id number]</td><td ID="MedicationTaxonomyDesc_2">Nurse Practitioner</td><td ID="MedicationPhoneNumber_2">[phone]</td> [facility] ([facility]) Clonazepam 0.5 MG Oral Tablet clonazepam 08/24/2020 12:00:00 AM EST 0.5 mg by mouth completed <td ID="Medica tionRxNorm_7">618111</td><td ID="MedicationMedication_7">clonazepam</td><td ID="MedicationRoute_7">by mouth</td><td ID="MedicationRouteConcept_7">S15986</td><td ID="MedicationStartDate_7">08/24/2020</td><td ID="MedicationStopDate_7">12/11/2020</td><td ID="MedicationDosageFrequency_7">once a day</td><td ID="MedicationDuration_7"></td><td ID="MedicationFormulaStrength_7">0.5 mg</td><td ID="MedicationDosageForm_7">tablet</td><td ID="MedicationDosageFormCode_7"></td><td ID="MedicationDosageDescription_7"></td><td ID="MedicationMedicationId_7">[id number]</td><td ID="MedicationAccount_7">[id number]</td><td ID="MedicationNpid_7">[id number]</td><td ID="MedicationAuthorFirstName_7">Susanne</td><td ID="MedicationAuthorLastName_7">Irvin</td><td ID="MedicationTaxonomyCode_7">[id number]</td><td ID="MedicationTaxonomyDesc_7">Nurse Practitioner</td><td ID="MedicationPhoneNumber_7">[phone]</td> [facility] ([facility]) Prazosin 1 MG Oral Capsule prazosin 08/24/2020 12:00:00 AM EST 1 mg by mouth completed <td ID="Medicat ionRxNorm_4">780374</td><td ID="MedicationMedication_4">prazosin</td><td ID="MedicationRoute_4">by mouth</td><td ID="MedicationRouteConcept_4">X86512</td><td ID="MedicationStartDate_4">08/24/2020</td><td ID="MedicationStopDate_4"></td><td ID="MedicationDosageFrequency_4">at bedtime</td><td ID="MedicationDuration_4"></td><td ID="MedicationFormulaStrength_4">1 mg</td><td ID="MedicationDosageForm_4">capsule</td><td ID="MedicationDosageFormCode_4"></td><td ID="MedicationDosageDescription_4"></td><td ID="MedicationMedicationId_4">[id number]</td><td ID="MedicationAccount_4">[id number]</td><td ID="MedicationNpid_4">[id number]</td><td ID="MedicationAuthorFirstName_4">Adrienne</td><td ID="MedicationAuthorLastName_4">Scandia</td><td ID="MedicationTaxonomyCode_4">[id number]</td><td ID="MedicationTaxonomyDesc_4">Psychiatric/Mental Health</td><td ID="MedicationPhoneNumber_4">[phone]</td> [facility] ([facility]) 100 mg 08/24/2020 12:00:00 AM EST tablet 30 TAKE ONE TABLET BY MOUTH EVERY DAY TAKE ONE TABLET BY MOUTH EVERY DAY SOLD: 08/24/2020 [facility] Clonazepam 0.5 MG Oral Tablet clonazepam 08/24/2020 12:00:00 AM EST 0.5 mg by mouth completed <td ID="Medica tionRxNorm_3">919308</td><td ID="MedicationMedication_3">clonazepam</td><td ID="MedicationRoute_3">by mouth</td><td ID="MedicationRouteConcept_3">W04044</td><td ID="MedicationStartDate_3">08/24/2020</td><td ID="MedicationStopDate_3"></td><td ID="MedicationDosageFrequency_3">once a day</td><td ID="MedicationDuration_3"></td><td ID="MedicationFormulaStrength_3">0.5 mg</td><td ID="MedicationDosageForm_3">tablet</td><td ID="MedicationDosageFormCode_3"></td><td ID="MedicationDosageDescription_3"></td><td ID="MedicationMedicationId_3">[id number]</td><td ID="MedicationAccount_3">[id number]</td><td ID="MedicationNpid_3">[id number]</td><td ID="MedicationAuthorFirstName_3">Adrienne</td><td ID="MedicationAuthorLastName_3">Scandia</td><td ID="MedicationTaxonomyCode_3">[id number]</td><td ID="MedicationTaxonomyDesc_3">Psychiatric/Mental Health</td><td ID="MedicationPhoneNumber_3">[phone]</td> [facility] ([facility]) Jc Greene 08/18/2020 12:00:00 AM EST ORAL com pleted [facility] ([facility] ) 5 mg 08/18/2020 12:00:00 [...] ONE CAPSULE BY MOUTH EVERY DAY IN T HE MORNING ON AN EMPTY STOMACH, AT LEST 30 MINUTES BEFORE BREAKFAST SOLD: 09/12/2020 [facility] empagliflozin 10 MG Oral Tablet [Jardiance] Jardiance 08/17/2020 12:00:00 AM EST ORAL completed [facility] ([facility] 40 mg 08/17/2020 12:00:00 AM EST capsule,delayed release (DR/EC) 30 TAKE ONE CAPSULE BY MOUTH EVERY DAY IN THE MORNING ON AN EMPTY STOMACH, AT LEST 30 MINUTES BEFORE BREAKFAST TAKE ONE CAPSULE BY MOUTH EVERY DAY IN MORNING ON AN EMPTY STOMACH, AT LEST 30 MINUTES BEFORE BREAKFAST SOLD: 11/08/2020 [facility] 40 mg 08/17/2020 12:00:00 AM EST capsule,delayed release (DR/EC) 30 TAKE ONE CAPSULE BY MOUTH EVERY DAY IN THE MORNING ON AN EMPTY STOMACH, AT LEST 30 MINUTES BEFORE BREAKFAST TAKE ONE CAPSULE BY MOUTH EVERY DAY IN MORNING ON AN EMPTY STOMACH, AT LEST 30 MINUTES BEFORE BREAKFAST SOLD: 08/17/2020 [facility] 40 mg 08/17/2020 12:00:00 AM EST capsule,delayed release (DR/EC) 30 TAKE ONE CAPSULE BY MOUTH EVERY DAY IN THE MORNING ON AN EMPTY STOMACH, AT LEST 30 MINUTES BEFORE BREAKFAST TAKE ONE CAPSULE BY MOUTH EVERY DAY IN MORNING ON AN EMPTY STOMACH, AT LEST 30 MINUTES BEFORE BREAKFAST SOLD: 10/10/2020 [facility] 25 mcg 08/16/2020 12:00:00 AM EST tablet 30 TAKE ONE TABLET BY MOUTH EVERY DAY TAKE ONE TABLET BY MOUTH EVERY DAY SOLD: 09/18/2020 [facility] ziprasidone 80 MG Oral Capsule ZIPRASIDONE [...] 0.5 mg by mouth completed <td ID="Medica tionRxNorm_5">150268</td><td ID="MedicationMedication_5">clonazepam</td><td ID="MedicationRoute_5">by mouth</td><td ID="MedicationRouteConcept_5">A15277</td><td ID="MedicationStartDate_5">08/14/2020</td><td ID="MedicationStopDate_5">08/24/2020</td><td ID="MedicationDosageFrequency_5">once a day</td><td ID="MedicationDuration_5">10</td><td ID="MedicationFormulaStrength_5">0.5 mg</td><td ID="MedicationDosageForm_5">tablet</td><td ID="MedicationDosageFormCode_5"></td><td ID="MedicationDosageDescription_5">as directed</td><td ID="MedicationMedicationId_5">[id number]</td><td ID="MedicationAccount_5">[id number]</td><td ID="MedicationNpid_5">[id number]</td><td ID="MedicationAuthorFirstName_5">Adrienne</td><td ID="MedicationAuthorLastName_5">Scandia</td><td ID="MedicationTaxonomyCode_5">[id number]</td><td ID="MedicationTaxonomyDesc_5">Psychiatric/Mental Health</td><td ID="MedicationPhoneNumber_5">[phone]</td> [facility] ([facility]) Clonazepam 0.5 MG Oral Tablet clonazepam 08/14/2020 12:00:00 AM EST 0.5 mg by mouth completed <td ID="Medica tionRxNorm_3">727254</td><td ID="MedicationMedication_3">clonazepam</td><td ID="MedicationRoute_3">by mouth</td><td ID="MedicationRouteConcept_3">I04486</td><td ID="MedicationStartDate_3">08/14/2020</td><td ID="MedicationStopDate_3">08/24/2020</td><td ID="MedicationDosageFrequency_3">once a day</td><td ID="MedicationDuration_3">10</td><td ID="MedicationFormulaStrength_3">0.5 mg</td><td ID="MedicationDosageForm_3">tablet</td><td ID="MedicationDosageFormCode_3"></td><td ID="MedicationDosageDescription_3">as directed</td><td ID="MedicationMedicationId_3">[id number]</td><td ID="MedicationAccount_3">[id number]</td><td ID="MedicationNpid_3">[id number]</td><td ID="MedicationAuthorFirstName_3">Adrienne</td><td ID="MedicationAuthorLastName_3">Ricky</td><td ID="MedicationTaxonomyCode_3">[id number]</td><td ID="MedicationTaxonomyDesc_3">Psychiatric/Mental Health</td><td ID="MedicationPhoneNumber_3">[phone]</td> [facility] ([facility]) lamotrigine 100 MG Oral Tablet [Lamictal] Lamictal 07/25/2020 1 2:00:00 AM EDT 100 mg by mouth completed <td ID="Me dicationRxNorm_9">871575</td><td ID="MedicationMedication_9">Lamictal</td><td ID="MedicationRoute_9">by mouth</td><td ID="MedicationRouteConcept_9">L73761</td><td ID="MedicationStartDate_9">07/25/2020</td><td ID="MedicationStopDate_9">02/18/2021</td><td ID="MedicationDosageFrequency_9">once a day</td><td ID="MedicationDuration_9">30</td><td ID="MedicationFormulaStrength_9">100 mg</td><td ID="MedicationDosageForm_9">tablet</td><td ID="MedicationDosageFormCode_9"></td><td ID="MedicationDosageDescription_9"></td><td ID="MedicationMedicationId_9">[id number]</td><td ID="MedicationAccount_9">[id number]</td><td ID="MedicationNpid_9">[id number]</td><td ID="MedicationAuthorFirstName_9">Susanne</td><td ID="MedicationAuthorLastName_9">Irvin</td><td ID="MedicationTaxonomyCode_9">[id number]</td><td ID="MedicationTaxonomyDesc_9">Nurse Practitioner</td><td ID="MedicationPhoneNumber_9">[phone]</td> [facility] ([facility]) lamotrigine 100 MG Oral Tablet [Lamictal] Lamictal 07/25/2020 1 2:00:00 AM EDT 100 mg by mouth completed <td ID="Me dicationRxNorm_8">703277</td><td ID="MedicationMedication_8">Lamictal</td><td ID="MedicationRoute_8">by mouth</td><td ID="MedicationRouteConcept_8">J83678</td><td ID="MedicationStartDate_8">07/25/2020</td><td ID="MedicationStopDate_8">11/22/2020</td><td ID="MedicationDosageFrequency_8">once a day</td><td ID="MedicationDuration_8">30</td><td ID="MedicationFormulaStrength_8">100 mg</td><td ID="MedicationDosageForm_8">tablet</td><td ID="MedicationDosageFormCode_8"></td><td ID="MedicationDosageDescription_8"></td><td ID="MedicationMedicationId_8">[id number]</td><td ID="MedicationAccount_8">[id number]</td><td ID="MedicationNpid_8">[id number]</td><td ID="MedicationAuthorFirstName_8">Adrienne</td><td ID="MedicationAuthorLastName_8">Scandia</td><td ID="MedicationTaxonomyCode_8">[id number]</td><td ID="MedicationTaxonomyDesc_8">Psychiatric/Mental Health</td><td ID="MedicationPhoneNumber_8">[phone]</td> [facility] ([facility]) lamotrigine 100 MG Oral Tablet [Lamictal] Lamictal 07/25/2020 1 2:00:00 AM EDT 100 mg by mouth completed <td ID="Me dicationRxNorm_5">778513</td><td ID="MedicationMedication_5">Lamictal</td><td ID="MedicationRoute_5">by mouth</td><td ID="MedicationRouteConcept_5">Y11520</td><td ID="MedicationStartDate_5">07/25/2020</td><td ID="MedicationStopDate_5">11/22/2020</td><td ID="MedicationDosageFrequency_5">once a day</td><td ID="MedicationDuration_5">30</td><td ID="MedicationFormulaStrength_5">100 mg</td><td ID="MedicationDosageForm_5">tablet</td><td ID="MedicationDosageFormCode_5"></td><td ID="MedicationDosageDescription_5"></td><td ID="MedicationMedicationId_5">[id number]</td><td ID="MedicationAccount_5">[id number]</td><td ID="MedicationNpid_5">[id number]</td><td ID="MedicationAuthorFirstName_5">Adrienne</td><td ID="MedicationAuthorLastName_5">Scandia</td><td ID="MedicationTaxonomyCode_5">[id number]</td><td ID="MedicationTaxonomyDesc_5">Psychiatric/Mental Health</td><td ID="MedicationPhoneNumber_5">[phone]</td> [facility] ([facility]) lamotrigine 100 MG Oral Tablet [Lamictal] Lamictal 07/25/2020 1 2:00:00 AM EDT 100 mg by mouth completed <td ID="Me dicationRxNorm_6">986755</td><td ID="MedicationMedication_6">Lamictal</td><td ID="MedicationRoute_6">by mouth</td><td ID="MedicationRouteConcept_6">P27210</td><td ID="MedicationStartDate_6">07/25/2020</td><td ID="MedicationStopDate_6">02/18/2021</td><td ID="MedicationDosageFrequency_6">once a day</td><td ID="MedicationDuration_6">30</td><td ID="MedicationFormulaStrength_6">100 mg</td><td ID="MedicationDosageForm_6">tablet</td><td ID="MedicationDosageFormCode_6"></td><td ID="MedicationDosageDescription_6"></td><td ID="MedicationMedicationId_6">[id number]</td><td ID="MedicationAccount_6">[id number]</td><td ID="MedicationNpid_6">[id number]</td><td ID="MedicationAuthorFirstName_6">Susanne</td><td ID="MedicationAuthorLastName_6">Irvin</td><td ID="MedicationTaxonomyCode_6">[id number]</td><td ID="MedicationTaxonomyDesc_6">Nurse Practitioner</td><td ID="MedicationPhoneNumber_6">[phone]</td> [facility] ([facility]) 100 mg 07/25/2020 12:00:00 AM EDT tablet 30 TAKE ONE TABLET BY MOUTH EVERY DAY TAKE ONE TABLET BY MOUTH EVERY DAY SOLD: 07/25/2020 [facility] lamotrigine 100 MG Oral Tablet [Lamictal] Lamictal 07/25/2020 1 2:00:00 AM EDT 100 mg by mouth completed <td ID="Me dicationRxNorm_4">992520</td><td ID="MedicationMedication_4">Lamictal</td><td ID="MedicationRoute_4">by mouth</td><td ID="MedicationRouteConcept_4">S51604</td><td ID="MedicationStartDate_4">07/25/2020</td><td ID="MedicationStopDate_4">02/18/2021</td><td ID="MedicationDosageFrequency_4">once a day</td><td ID="MedicationDuration_4">30</td><td ID="MedicationFormulaStrength_4">100 mg</td><td ID="MedicationDosageForm_4">tablet</td><td ID="MedicationDosageFormCode_4"></td><td ID="MedicationDosageDescription_4"></td><td ID="MedicationMedicationId_4">68430</td><td ID="MedicationAccount_4">[id number]</td><td ID="MedicationNpid_4">[id number]</td><td ID="MedicationAuthorFirstName_4">Susanne</td><td ID="MedicationAuthorLastName_4">Irvin</td><td ID="MedicationTaxonomyCode_4">[id number]</td><td ID="MedicationTaxonomyDesc_4">Nurse Practitioner</td><td ID="MedicationPhoneNumber_4">[phone]</td> [facility] ([facility]) lamotrigine 100 MG Oral Tablet [Lamictal] Lamictal 07/25/2020 1 2:00:00 AM EDT 100 mg by mouth completed <td ID="Me dicationRxNorm_7">004705</td><td ID="MedicationMedication_7">Lamictal</td><td ID="MedicationRoute_7">by mouth</td><td ID="MedicationRouteConcept_7">I61210</td><td ID="MedicationStartDate_7">07/25/2020</td><td ID="MedicationStopDate_7">02/18/2021</td><td ID="MedicationDosageFrequency_7">once a day</td><td ID="MedicationDuration_7">30</td><td ID="MedicationFormulaStrength_7">100 mg</td><td ID="MedicationDosageForm_7">tablet</td><td ID="MedicationDosageFormCode_7"></td><td ID="MedicationDosageDescription_7"></td><td ID="MedicationMedicationId_7">[id number]</td><td ID="MedicationAccount_7">[id number]</td><td ID="MedicationNpid_7">[id number]</td><td ID="MedicationAuthorFirstName_7">Susanne</td><td ID="MedicationAuthorLastName_7">Irvin</td><td ID="MedicationTaxonomyCode_7">[id number]</td><td ID="MedicationTaxonomyDesc_7">Nurse Practitioner</td><td ID="MedicationPhoneNumber_7">[phone]</td> [facility] ([facility]) 40 mg 07/19/2020 12:00:00 AM EDT tablet 60 TAKE ONE TABLET BY MOUTH TWICE A DAY TAKE ONE TABLET BY MOUTH TWICE A DAY SOLD: 07/19/2020 [facility] ziprasidone 80 MG Oral Capsule ZIPRASIDONE HCL 07/19/2020 12:00: 00 AM EDT capsule 60 TAKE ONE CAPSULE BY MOUTH TWICE A DAY TAKE ONE CAPSULE BY MOUTH TWICE A DAY SOLD: 07/19/2020 [facility] 800 mg 07/19/2020 12:00:00 AM EDT tablet 90 TAKE ONE TABLET BY MOUTH EVERY 8 HOURS NEEDED FOR HEADACHES , MAXIMUM DAILY DOSE = 3 TAKE ONE TABLET BY MOUTH EVERY 8 HOURS NEEDED FOR HEADACHES , MAXIMUM DAILY DOSE = 3 SOLD: 07/19/2020 [facility] 40 mg 07/19/2020 12:00:00 AM EDT tablet 52 TAKE ONE TABLET BY MOUTH TWICE A DAY TAKE ONE TABLET BY MOUTH TWICE A DAY SOLD: 08/21/2020 [facility] 0.5 mg 07/19/2020 12:00:00 AM EDT tablet 30 TAKE 1 TABLET BY MOUTH EVERY DAY DIRECTED MAY TAKE AN ADDITIONAL TABLET NEEDED, MAXIMUM DAILY DOSE = 2 TABLETS TAKE 1 TABLET BY MOUTH EVERY DAY DIRE CTED MAY TAKE AN ADDITIONAL TABLET NEEDED, MAXIMUM DAILY DOSE = 2 TABLETS SOLD: 07/19/2020 [facility] buspirone hydrochloride 15 MG Oral Tablet BUSPIRONE HCL 07/19/2020 12:00:00 AM EDT tablet 60 TAKE ONE TABLET BY MOUTH TWI CE A DAY TAKE ONE TABLET BY MOUTH TWICE A DAY SOLD: 07/19/2020 [facility] 10 mg 07/05/2020 12:00:00 AM [...] AM EDT 25 mg completed <td ID="Me dicationRxNorm_3">620870</td><td ID="MedicationMedication_3">Lamictal</td><td ID="MedicationRoute_3"></td><td ID="MedicationRouteConcept_3"></td><td ID="MedicationStartDate_3">06/27/2020</td><td ID="MedicationStopDate_3"></td><td ID="MedicationDosageFrequency_3"></td><td ID="MedicationDuration_3"></td><td ID="MedicationFormulaStrength_3">25 mg</td><td ID="MedicationDosageForm_3">tablet</td><td ID="MedicationDosageFormCode_3"></td><td ID="MedicationDosageDescription_3"></td><td ID="MedicationMedicationId_3">[id number]</td><td ID="MedicationAccount_3">[id number]</td><td ID="MedicationNpid_3">[id number]</td><td ID="MedicationAuthorFirstName_3">Adrienne</td><td ID="MedicationAuthorLastName_3">Ricky</td><td ID="MedicationTaxonomyCode_3">[id number]</td><td ID="MedicationTaxonomyDesc_3">Psychiatric/Mental Health</td><td ID="MedicationPhoneNumber_3">[phone]</td> [facility] ([facility]) lamotrigine 25 MG Oral Tablet [Lamictal] Lamictal 06/27/2020 12 :00:00 AM EDT 25 mg completed <td ID="Me dicationRxNorm_4">764713</td><td ID="MedicationMedication_4">Lamictal</td><td ID="MedicationRoute_4"></td><td ID="MedicationRouteConcept_4"></td><td ID="MedicationStartDate_4">06/27/2020</td><td ID="MedicationStopDate_4"></td><td ID="MedicationDosageFrequency_4"></td><td ID="MedicationDuration_4"></td><td ID="MedicationFormulaStrength_4">25 mg</td><td ID="MedicationDosageForm_4">tablet</td><td ID="MedicationDosageFormCode_4"></td><td ID="MedicationDosageDescription_4"></td><td ID="MedicationMedicationId_4">[id number]</td><td ID="MedicationAccount_4">[id number]</td><td ID="MedicationNpid_4">[id number]</td><td ID="MedicationAuthorFirstName_4">Adrienne</td><td ID="MedicationAuthorLastName_4">Ricky</td><td ID="MedicationTaxonomyCode_4">[id number]</td><td ID="MedicationTaxonomyDesc_4">Psychiatric/Mental Health</td><td ID="MedicationPhoneNumber_4">[phone]</td> [facility] ([facility]) 25 mg 06/27/2020 12:00:00 AM EDT tablet [...] 80 mg by mouth completed <td ID="Me dicationRxNorm_5">759052</td><td ID="MedicationMedication_5">ziprasidone HCl</td><td ID="MedicationRoute_5">by mouth</td><td ID="MedicationRouteConcept_5">[id number]</td><td ID="MedicationStartDate_5">06/20/2020</td><td ID="MedicationStopDate_5">09/23/2020</td><td ID="MedicationDosageFrequency_5">twice a day</td><td ID="MedicationDuration_5">30</td><td ID="MedicationFormulaStrength_5">80 mg</td><td ID="MedicationDosageForm_5">capsule</td><td ID="MedicationDosageFormCode_5"></td><td ID="MedicationDosageDescription_5"></td><td ID="MedicationMedicationId_5">[id number]</td><td ID="MedicationAccount_5">[id number]</td><td ID="MedicationNpid_5">[id number]</td><td ID="MedicationAuthorFirstName_5">Adrienne</td><td ID="MedicationAuthorLastName_5">Ricky</td><td ID="MedicationTaxonomyCode_5">[id number]</td><td ID="MedicationTaxonomyDesc_5">Psychiatric/Mental Health</td><td ID="MedicationPhoneNumber_5">[phone]</td> [facility] ([facility]) 400 mg 06/20/2020 12:00:00 AM EDT capsule [...] 0.5 mg by mouth completed <td ID="Medica tionRxNorm_4">[id number]</td><td ID="MedicationMedication_4">clonazepam</td><td ID="MedicationRoute_4">by mouth</td><td ID="MedicationRouteConcept_4">[id number]</td><td ID="MedicationStartDate_4">05/26/2020</td><td ID="MedicationStopDate_4">08/17/2020</td><td ID="MedicationDosageFrequency_4">once a day</td><td ID="MedicationDuration_4">30</td><td ID="MedicationFormulaStrength_4">0.5 mg</td><td ID="MedicationDosageForm_4">tablet</td><td ID="MedicationDosageFormCode_4"></td><td ID="MedicationDosageDescription_4">as directed</td><td ID="MedicationMedicationId_4">[id number]</td><td ID="MedicationAccount_4">[id number]</td><td ID="MedicationNpid_4">[id number]</td><td ID="MedicationAuthorFirstName_4">Susanne</td><td ID="MedicationAuthorLastName_4">Irvin</td><td ID="MedicationTaxonomyCode_4">[id number]</td><td ID="MedicationTaxonomyDesc_4">Nurse Practitioner</td><td ID="MedicationPhoneNumber_4">[phone]</td> [facility] ([facility]) 40 mg 05/24/2020 12:00:00 AM EDT tablet [...] AM EDT 15 mg completed <td ID="Medicat ionRxNorm_5">058766</td><td ID="MedicationMedication_5">mirtazapine</td><td ID="MedicationRoute_5"></td><td ID="MedicationRouteConcept_5"></td><td ID="MedicationStartDate_5">05/01/2020</td><td ID="MedicationStopDate_5">06/30/2020</td><td ID="MedicationDosageFrequency_5">at bedtime</td><td ID="MedicationDuration_5">30</td><td ID="MedicationFormulaStrength_5">15 mg</td><td ID="MedicationDosageForm_5">tablet</td><td ID="MedicationDosageFormCode_5"></td><td ID="MedicationDosageDescription_5"></td><td ID="MedicationMedicationId_5">[id number]</td><td ID="MedicationAccount_5">[id number]</td><td ID="MedicationNpid_5">[id number]</td><td ID="MedicationAuthorFirstName_5">Adrienne</td><td ID="MedicationAuthorLastName_5">Ricky</td><td ID="MedicationTaxonomyCode_5">[id number]</td><td ID="MedicationTaxonomyDesc_5">Psychiatric/Mental Health</td><td ID="MedicationPhoneNumber_5">[phone]</td> [facility] ([facility]) 25 mcg 04/21/2020 12:00:00 AM EDT tablet [...] 400 mg by mouth completed <td ID="Medica tionRxNorm_7">039158</td><td ID="MedicationMedication_7">gabapentin</td><td ID="MedicationRoute_7">by mouth</td><td ID="MedicationRouteConcept_7">O18407</td><td ID="MedicationStartDate_7">03/13/2020</td><td ID="MedicationStopDate_7">07/04/2021</td><td ID="MedicationDosageFrequency_7">three times a day</td><td ID="MedicationDuration_7">30</td><td ID="MedicationFormulaStrength_7">400 mg</td><td ID="MedicationDosageForm_7">capsule</td><td ID="MedicationDosageFormCode_7"></td><td ID="MedicationDosageDescription_7"> </td><td ID="MedicationMedicationId_7">[id number]</td><td ID="MedicationAccount_7">[id number]</td><td ID="MedicationNpid_7">[id number]</td><td ID="MedicationAuthorFirstName_7">Susanne</td><td ID="MedicationAuthorLastName_7">Irvin</td><td ID="MedicationTaxonomyCode_7">[id number]</td><td ID="MedicationTaxonomyDesc_7">Nurse Practitioner</td><td ID="MedicationPhoneNumber_7">[phone]</td> [facility] ([facility]) gabapentin 400 MG Oral Capsule gabapentin 03/13/2020 12:00:00 AM EDT 400 mg by mouth completed <td ID="Medica tionRxNorm_3">[id number]</td><td ID="MedicationMedication_3">gabapentin</td><td ID="MedicationRoute_3">by mouth</td><td ID="MedicationRouteConcept_3">P54728</td><td ID="MedicationStartDate_3">03/13/2020</td><td ID="MedicationStopDate_3">07/04/2021</td><td ID="MedicationDosageFrequency_3">three times a day</td><td ID="MedicationDuration_3">30</td><td ID="MedicationFormulaStrength_3">400 mg</td><td ID="MedicationDosageForm_3">capsule</td><td ID="MedicationDosageFormCode_3"></td><td ID="MedicationDosageDescription_3"> </td><td ID="MedicationMedicationId_3">[id number]</td><td ID="MedicationAccount_3">[id number]</td><td ID="MedicationNpid_3">[id number]</td><td ID="MedicationAuthorFirstName_3">Susanne</td><td ID="MedicationAuthorLastName_3">Irvin</td><td ID="MedicationTaxonomyCode_3">[id number]</td><td ID="MedicationTaxonomyDesc_3">Nurse Practitioner</td><td ID="MedicationPhoneNumber_3">[phone]</td> [facility] ([facility]) 8.6 mg 02/22/2020 12:00:00 AM EDT tablet [...] EDT 40 mg by mouth completed <td ID="MedicationRxNorm_6">414558</td><td ID="MedicationMedication_6">propranolol</td><td ID="MedicationRoute_6">by mouth</td><td ID="MedicationRouteConcept_6">N80135</td><td ID="MedicationStartDate_6">02/03/2020</td><td ID="MedicationStopDate_6">10/23/2020</td><td ID="MedicationDosageFrequency_6">twice a day</td><td ID="MedicationDuration_6">30</td><td ID="MedicationFormulaStrength_6">40 mg</td><td ID="MedicationDosageForm_6">tablet</td><td ID="MedicationDosageFormCode_6"></td><td ID="MedicationDosageDescription_6"></td><td ID="MedicationMedicationId_6">[id number]</td><td ID="MedicationAccount_6">[id number]</td><td ID="MedicationNpid_6">[id number]</td><td ID="MedicationAuthorFirstName_6">Adrienne</td><td ID="MedicationAuthorLastName_6">Ricky</td><td ID="MedicationTaxonomyCode_6">[id number]</td><td ID="MedicationTaxonomyDesc_6">Psychiatric/Mental Health</td><td ID="MedicationPhoneNumber_6">[phone]</td> [facility] ([facility]) Propranolol Hydrochloride 40 MG Oral Tablet propranolol 02/03/2020 12:00:00 AM EDT 40 mg by mouth completed <td ID="MedicationRxNorm_7">[id number]</td><td ID="MedicationMedication_7">propranolol</td><td ID="MedicationRoute_7">by mouth</td><td ID="MedicationRouteConcept_7">W34449</td><td ID="MedicationStartDate_7">02/03/2020</td><td ID="MedicationStopDate_7">10/23/2020</td><td ID="MedicationDosageFrequency_7">twice a day</td><td ID="MedicationDuration_7">30</td><td ID="MedicationFormulaStrength_7">40 mg</td><td ID="MedicationDosageForm_7">tablet</td><td ID="MedicationDosageFormCode_7"></td><td ID="MedicationDosageDescription_7"></td><td ID="MedicationMedicationId_7">[id number]</td><td ID="MedicationAccount_7">[id number]</td><td ID="MedicationNpid_7">[id number]</td><td ID="MedicationAuthorFirstName_7">Adrienne</td><td ID="MedicationAuthorLastName_7">Ricky</td><td ID="MedicationTaxonomyCode_7">[id number]</td><td ID="MedicationTaxonomyDesc_7">Psychiatric/Mental Health</td><td ID="MedicationPhoneNumber_7">[phone]</td> [facility] ([facility]) 31 gauge x 5/16" 01/26/2020 12:00:00 AM [...] THREE TIMES A DAY SOLD: 06/23/2020 [employer] Ketoconazole 20 MG/ML Medicated Shampoo ketoconazole 2 % shampoo ketoconazole 2 % shampoo completed ketoconazole 20 MG/ML Medicated Shampoo [place] ([facility]) buspirone hydrochloride 10 MG Oral Tablet buspirone 10 mg tablet buspirone 10 mg tablet completed buspirone hydr ochloride 10 MG Oral Tablet [place] ([facility]) Ketoconazole 20 MG/ML Medicated Shampoo ketoconazole 2 % shampoo ketoconazole 2 % shampoo completed ketoconazole 20 MG/ML Medicated Shampoo [place] ([facility]) buspirone hydrochloride 10 MG Oral Tablet buspirone 10 mg tablet buspirone 10 mg tablet completed buspirone hydr ochloride 10 MG Oral Tablet [place] ([facility]) Clonidine Hydrochloride 0.2 MG Oral Tablet clonidine H Cl 0.2 mg tablet clonidine HCl 0.2 mg tablet completed clonidine hydrochloride 0.2 MG Oral Tablet [place] ([facility]) Propranolol Hydrochloride 20 MG Oral Tablet propranolo l 20 mg tablet propranolol 20 mg tablet completed propranolol hydrochloride 20 MG Oral Tablet [place] ([facility]) Isopropyl Alcohol 0.7 ML/ML Medicated Pad Alcohol Prep Pads Alco hol Prep Pads completed isopropyl alco hol 0.7 ML/ML Medicated Pad [place] ([facility]) Docusate Sodium 100 MG Oral Capsule [DOK] DOK 100 mg capsule DOK 100 mg capsule completed docusate sodiu m 100 MG Oral Capsule [DOK] [place] ([facility]) Triamcinolone Acetonide 1 MG/ML Topical Cream triamcinolone acetonide 0.1 % topical cream triamcinolone acetonide 0.1 % topical cream completed triamcinolone acetonide 1 MG/ML Topical Cream [place] ([facility]) 0.5 ML dulaglutide 1.5 MG/ML Auto-Inject or [Trulicity] Trulicity 0.75 mg/0.5 mL subcutaneous pen injector Trulicity 0.75 mg/0.5 mL subcutaneous pen injector completed 0.5 ML dulaglu tide 1.5 MG/ML Auto-Injector [Trulicity] [place] ([facility]) Famotidine 20 MG Oral Tablet famotidine 20 mg tablet famotidine 20 mg tablet completed famotidine 20 MG Oral Tablet [facility] ([facility]) Cephalexin 500 MG Oral Capsule cephalexin 500 mg capsu le cephalexin 500 mg capsule completed cephalexin 500 MG Oral Capsule [place] ([facility]) lamotrigine 100 MG Oral Tablet lamotrigi ne 100 mg tablet TAKE ONE TABLET BY MOUTH ONCE DAILY lamotrigine 100 mg tablet TAKE ONE TABLET BY MOUTH ONC E DAILY completed lamotrigine 10 0 MG Oral Tablet [place] ([facility]) Mirtazapine 15 MG Oral Tablet mirtazapine 15 mg tablet derrick zapine 15 mg tablet completed mirtazapine 15 MG Oral Tablet [place] ([facility]) Azithromycin 250 MG Oral Tablet azithromycin 250 mg ta blet azithromycin 250 mg tablet completed azithromycin 25 0 MG Oral Tablet [place] ([facility]) Famotidine 20 MG Oral Tablet famotidine 20 mg tablet famotidine 20 mg tablet completed famotidine 20 MG Oral Tablet [place] ([facility]) Docusate Sodium 100 MG Oral Capsule [DOK] DOK 100 mg capsule DOK 100 mg capsule completed docusate sodiu m 100 MG Oral Capsule [DOK] [place] ([facility]) Mirtazapine 15 MG Oral Tablet mirtazapine 15 mg tablet derrick zapine 15 mg tablet completed mirtazapine 15 MG Oral Tablet [place] ([facility]) OneTouch Verio Flex Meter [id number] compl eted OneTouch Verio Flex Meter [place] ([facility]) cefdinir 300 MG Oral Capsule cefdinir 300 mg capsule cefdinir 30 0 mg capsule completed cefdinir 300 M G Oral Capsule [place] ([facility]) Mirtazapine 45 MG Oral Tablet mirtazapine 45 mg tablet derrick zapine 45 mg tablet completed mirtazapine 45 MG Oral Tablet [place] ([facility]) Triamcinolone Acetonide 1 MG/ML Topical Cream triamcinolone acetonide 0.1 % topical cream triamcinolone acetonide 0.1 % topical cream completed triamcinolone acetonide 1 MG/ML Topical Cream [place] ([facility]) Azithromycin 250 MG Oral Tablet azithromycin 250 mg ta blet azithromycin 250 mg tablet completed azithromycin 25 0 MG Oral Tablet [facility]) Amitriptyline Hydrochloride 50 MG Oral Tablet amitript yline 50 mg tablet amitriptyline 50 mg tablet completed amitriptyline hydrochloride 50 MG Oral Tablet [facility] ([facility]) buspirone hydrochloride 15 MG Oral Table t buspirone 15 mg tablet TAKE ONE TABLET BY MOUTH THREE TIMES A DAY buspirone 15 mg tablet TAKE ONE TABLET B Y MOUTH THREE TIMES A DAY completed buspirone hydrochloride 15 MG Oral Tablet [facility] ([facility]) Propranolol Hydrochloride 20 MG Oral Tablet propranolo l 20 mg tablet propranolol 20 mg tablet completed propranolol hydrochloride 20 MG Oral Tablet [facility] ([facility]) 0.5 ML dulaglutide 1.5 MG/ML Auto-Inject or [Trulicity] Trulicity 0.75 mg/0.5 mL subcutaneous pen injector Trulicity 0.75 mg/0.5 mL subcutaneous pen injector completed 0.5 ML dulaglu tide 1.5 MG/ML Auto-Injector [Trulicity] [facility]) Clonazepam 0.5 MG Oral Tablet clonazepam 0.5 mg tablet TAKE ONE TABLET BY MOUTH NEEDED FOR 3 DAYS THEN ONE HALF TABLET UNTIL FINISHED MAXIMUM DAILY DOSE ONE TABLET clonazepam 0.5 mg tablet TAKE ONE TABLET BY MOUTH NEEDED FOR 3 DAYS THEN ONE HALF TABLET UNTIL FINISHED MAXIMUM DAILY DOSE ONE TABLET completed clonazepam 0.5 MG Or al Tablet [place] ([facility]) sennosides, RETIREMENT 8.6 MG Oral Tablet [Senna-Time] senna 8.6 mg tablet senna 8.6 mg tablet completed sennosi azam, RETIREMENT 8.6 MG Oral Tablet [Senna-Time] [place] ([facility]) 0.5 ML dulaglutide 1.5 MG/ML Auto-Inject or [Trulicity] Trulicity 0.75 mg/0.5 mL subcutaneous pen injector Trulicity 0.75 mg/0.5 mL subcutaneous pen injector completed 0.5 ML dulaglu tide 1.5 MG/ML Auto-Injector [Trulicity] [place] ([facility]) ziprasidone 60 MG Oral Capsule ziprasidone 60 mg capsu le ziprasidone 60 mg capsule completed ziprasidone 60 MG Oral Capsule [facility]) Mirtazapine 45 MG Oral Tablet mirtazapine 45 mg tablet derrick zapine 45 mg tablet completed mirtazapine 45 MG Oral Tablet [place] ([facility]) benzonatate 200 MG Oral Capsule benzonatate 200 mg cap [place] benzonatate 200 mg capsule completed benzonatate 20 0 MG Oral Capsule [place] ([facility]) Triamcinolone Acetonide 1 MG/ML Topical Cream triamcinolone acetonide 0.1 % topical cream triamcinolone acetonide 0.1 % topical cream completed triamcinolone acetonide 1 MG/ML Topical Cream [place] ([facility]) Ketoconazole 20 MG/ML Medicated Shampoo ketoconazole 2 % shampoo ketoconazole 2 % shampoo completed ketoconazole 20 MG/ML Medicated Shampoo [place] ([facility]) ziprasidone 60 MG Oral Capsule ziprasidone 60 mg capsu le ziprasidone 60 mg capsule completed ziprasidone 60 MG Oral Capsule [place] ([facility]) sennosides, RETIREMENT 8.6 MG Oral Tablet [Senna-Time] senna 8.6 mg tablet senna 8.6 mg tablet completed sennosi azam, RETIREMENT 8.6 MG Oral Tablet [Senna-Time] [place] ([facility]) buspirone hydrochloride 7.5 MG Oral Tablet buspirone 7 .5 mg tablet buspirone 7.5 mg tablet completed buspirone h ydrochloride 7.5 MG Oral Tablet [place] ([facility]) benztropine mesylate 0.5 MG Oral Tablet benztropine 0. 5 mg tablet benztropine 0.5 mg tablet completed benztrop ine mesylate 0.5 MG Oral Tablet [place] ([facility]) Prazosin 1 MG Oral Capsule prazosin 1 mg capsule prazosin 1 mg capsule completed prazosin 1 MG Oral Capsul e [place] ([facility]) BD Ultra-Fine Short Pen Needle 31 gauge x 5/16" USE DIRECTED ONCE DAILY [id number] completed BD Ultr a-Fine Short Pen Needle 31 gauge x 5/16" [place] ([facility]) Ketoconazole 20 MG/ML Medicated Shampoo ketoconazole 2 % shampoo ketoconazole 2 % shampoo completed ketoconazole 20 MG/ML Medicated Shampoo [facility] ([facility]) Mirtazapine 45 MG Oral Tablet mirtazapine 45 mg tablet derrick zapine 45 mg tablet completed mirtazapine 45 MG Oral Tablet [place] ([facility]) Azithromycin 250 MG Oral Tablet azithromycin 250 mg ta blet azithromycin 250 mg tablet completed azithromycin 25 0 MG Oral Tablet [place] ([facility]) lamotrigine 25 MG Oral Tablet lamotrigine 25 mg tablet lamot rigine 25 mg tablet completed lamotrigine 25 MG Oral Tablet [place] ([facility]) Isopropyl Alcohol 0.7 ML/ML Medicated Pad Alcohol Prep Pads Alco hol Prep Pads completed isopropyl alco hol 0.7 ML/ML Medicated Pad [place] ([facility]) Ergocalciferol 75487 UNT Oral Capsule Vi tamin D2 1,250 mcg (50,000 unit) capsule Vitamin D2 1,250 mcg (50,000 unit) capsule completed ergocalciferol 1.25 MG Oral Capsule [place] ([facility]) buspirone hydrochloride 7.5 MG Oral Tablet buspirone 7 .5 mg tablet buspirone 7.5 mg tablet completed buspirone h ydrochloride 7.5 MG Oral Tablet [place] ([facility]) Propranolol Hydrochloride 20 MG Oral Tablet propranolo l 20 mg tablet propranolol 20 mg tablet completed propranolol hydrochloride 20 MG Oral Tablet [place] ([facility]) cefdinir 300 MG Oral Capsule cefdinir 300 mg capsule cefdinir 30 0 mg capsule completed cefdinir 300 M G Oral Capsule [place] ([facility]) buspirone hydrochloride 7.5 MG Oral Tablet buspirone 7 .5 mg tablet buspirone 7.5 mg tablet completed buspirone h ydrochloride 7.5 MG Oral Tablet [place] ([facility]) Mirtazapine 15 MG Oral Tablet mirtazapine 15 mg tablet derrick zapine 15 mg tablet completed mirtazapine 15 MG Oral Tablet [place] ([facility]) Clonazepam 0.5 MG Disintegrating Oral Ta blet clonazepam 0.5 mg disintegrating tablet clonazepam 0.5 mg disintegrating tablet completed clonazepam 0.5 MG Disintegrating Oral Tablet [place] ([facility]) Clonidine Hydrochloride 0.2 MG Oral Tablet clonidine H Cl 0.2 mg tablet clonidine HCl 0.2 mg tablet completed clonidine hydrochloride 0.2 MG Oral Tablet [facility] ([facility]) Azithromycin 250 MG Oral Tablet azithromycin 250 mg ta blet azithromycin 250 mg tablet completed azithromycin 25 0 MG Oral Tablet [place] ([facility]) Docusate Sodium 100 MG Oral Capsule [DOK] DOK 100 mg capsule DOK 100 mg capsule completed docusate sodiu m 100 MG Oral Capsule [DOK] [facility] ([facility]) benzonatate 200 MG Oral Capsule benzonatate 200 mg cap [place] benzonatate 200 mg capsule completed benzonatate 20 0 MG Oral Capsule [place] ([facility]) 0.5 ML dulaglutide 1.5 MG/ML Auto-Inject or [Trulicity] Trulicity 0.75 mg/0.5 mL subcutaneous pen injector Trulicity 0.75 mg/0.5 mL subcutaneous pen injector completed 0.5 ML dulaglu tide 1.5 MG/ML Auto-Injector [Trulicity] [place] ([facility]) ziprasidone 60 MG Oral Capsule ziprasidone 60 mg capsu le ziprasidone 60 mg capsule completed ziprasidone 60 MG Oral Capsule [place] ([facility]) Amitriptyline Hydrochloride 50 MG Oral Tablet amitript yline 50 mg tablet amitriptyline 50 mg tablet completed amitriptyline hydrochloride 50 MG Oral Tablet [place] ([facility]) benztropine mesylate 0.5 MG Oral Tablet benztropine 0. 5 mg tablet benztropine 0.5 mg tablet completed benztrop ine mesylate 0.5 MG Oral Tablet [facility] ([facility]) benzonatate 200 MG Oral Capsule benzonatate 200 mg cap [place] benzonatate 200 mg capsule completed benzonatate 20 0 MG Oral Capsule [place] ([facility]) sennosides 8.6 mg-docusate sodium 50 mg capsule Take 2 capsules by oral route at bedtime. [id number] 2 capsule(s) completed docusate sodium 50 MG / sennosides, RETIREMENT 8.6 MG Oral Capsule [place] ([facility]) buspirone hydrochloride 7.5 MG Oral Tablet buspirone 7 .5 mg tablet buspirone 7.5 mg tablet completed buspirone h ydrochloride 7.5 MG Oral Tablet [facility] ([facility]) Clonidine Hydrochloride 0.2 MG Oral Tablet clonidine H Cl 0.2 mg tablet clonidine HCl 0.2 mg tablet completed clonidine hydrochloride 0.2 MG Oral Tablet [facility] ([facility]) Azithromycin 250 MG Oral Tablet azithromycin 250 mg ta blet azithromycin 250 mg tablet completed azithromycin 25 0 MG Oral Tablet [facility] ([facility]) sennosides 8.6 mg-docusate sodium 50 mg capsule Take 2 capsules by oral route at bedtime. [id number] 2 capsule(s) completed docusate sodium 50 MG / sennosides, RETIREMENT 8.6 MG Oral Capsule [facility] ([facility]) buspirone hydrochloride 10 MG Oral Tablet buspirone 10 mg tablet buspirone 10 mg tablet completed buspirone hydr ochloride 10 MG Oral Tablet [facility] ([facility]) Propranolol Hydrochloride 20 MG Oral Tablet propranolo l 20 mg tablet propranolol 20 mg tablet completed propranolol hydrochloride 20 MG Oral Tablet [facility] ([facility]) Amitriptyline Hydrochloride 50 MG Oral Tablet amitript yline 50 mg tablet amitriptyline 50 mg tablet completed amitriptyline hydrochloride 50 MG Oral Tablet [facility] ([facility]) cefdinir 300 MG Oral Capsule cefdinir 300 mg capsule cefdinir 30 0 mg capsule completed cefdinir 300 M G Oral Capsule [facility] ([facility]) benzonatate 200 MG Oral Capsule benzonatate 200 mg cap [place] benzonatate 200 mg capsule completed benzonatate 20 0 MG Oral Capsule [facility] ([facility]) Mirtazapine 15 MG Oral Tablet mirtazapine 15 mg tablet derrick zapine 15 mg tablet completed mirtazapine 15 MG Oral Tablet [facility] ([facility]) Famotidine 20 MG Oral Tablet famotidine 20 mg tablet famotidine 20 mg tablet completed famotidine 20 MG Oral Tablet [facility] ([facility]) benzonatate 200 MG Oral Capsule benzonatate 200 mg cap [place] benzonatate 200 mg capsule completed benzonatate 20 0 MG Oral Capsule [facility] ([facility]) sennosides 8.6 mg-docusate sodium 50 mg capsule Take 2 capsules by oral route at bedtime. [id number] 2 capsule(s) completed docusate sodium 50 MG / sennosides, RETIREMENT 8.6 MG Oral Capsule [facility] ([facility]) Steglatro 5 mg tablet [id number] completed ertugliflozin 5 MG Oral Tablet [Steglatro] [place] ([facility]) Simvastatin 10 MG Oral Tablet simvastati n 10 mg tablet TAKE ONE TABLET BY MOUTH EVERY DAY simvastatin 10 mg tablet TAKE ONE TABLET BY MOUTH EVERY DAY completed simvastatin 10 MG Oral Table t [place] ([facility]) benztropine mesylate 0.5 MG Oral Tablet benztropine 0. 5 mg tablet benztropine 0.5 mg tablet completed benztrop ine mesylate 0.5 MG Oral Tablet [place] ([facility]) Docusate Sodium 100 MG Oral Capsule [DOK] DOK 100 mg capsule DOK 100 mg capsule completed docusate sodiu m 100 MG Oral Capsule [DOK] [place] ([facility]) 0.5 ML dulaglutide 1.5 MG/ML Auto-Inject or [Trulicity] Trulicity 0.75 mg/0.5 mL subcutaneous pen injector Trulicity 0.75 mg/0.5 mL subcutaneous pen injector completed 0.5 ML dulaglu tide 1.5 MG/ML Auto-Injector [Trulicity] [place] ([facility]) Docusate Sodium 50 MG / sennosides, RETIREMENT 8.6 MG Oral Tablet sennosides 8.6 mg- docusate sodium 50 mg tablet Take 2 tablets by oral route at bedtime. sennosides 8.6 mg-docusate sodium 50 mg tablet Take 2 tablets by oral route at bedtime. 2 completed docusate sodiu m 50 MG / sennosides, RETIREMENT 8.6 MG Oral Tablet [facility] ([facility]) Amitriptyline Hydrochloride 50 MG Oral Tablet amitript yline 50 mg tablet amitriptyline 50 mg tablet completed amitriptyline hydrochloride 50 MG Oral Tablet [place] ([facility]) sennosides 8.6 mg-docusate sodium 50 mg capsule Take 2 capsules by oral route at bedtime. [id number] 2 capsule(s) completed docusate sodium 50 MG / sennosides, RETIREMENT 8.6 MG Oral Capsule [facility] ([facility]) Clindamycin 150 MG Oral Capsule clindamycin HCl 150 mg capsule clindamycin HCl 150 mg capsule completed clindam ycin 150 MG Oral Capsule [facility] ([facility]) 0.5 ML dulaglutide 1.5 MG/ML Auto-Inject or [Trulicity] Trulicity 0.75 mg/0.5 mL subcutaneous pen injector Trulicity 0.75 mg/0.5 mL subcutaneous pen injector completed 0.5 ML dulaglu tide 1.5 MG/ML Auto-Injector [Trulicity] [facility] ([facility]) buspirone hydrochloride 10 MG Oral Tablet buspirone 10 mg tablet buspirone 10 mg tablet completed buspirone hydr ochloride 10 MG Oral Tablet [place] ([facility]) Famotidine 20 MG Oral Tablet famotidine 20 mg tablet famotidine 20 mg tablet completed famotidine 20 MG Oral Tablet [facility] ([facility]) Clindamycin 150 MG Oral Capsule clindamycin HCl 150 mg capsule clindamycin HCl 150 mg capsule completed clindam ycin 150 MG Oral Capsule [facility] ([facility]) Triamcinolone Acetonide 1 MG/ML Topical Cream triamcinolone acetonide 0.1 % topical cream triamcinolone acetonide 0.1 % topical cream completed triamcinolone acetonide 1 MG/ML Topical Cream [place] ([facility]) Trazodone Hydrochloride 50 MG Oral Table t trazodone 50 mg tablet TAKE ONE TABLET BY MOUTH EVERY DAY AT BEDTIME trazodone 50 mg tablet TAKE ONE TABLET B Y MOUTH EVERY DAY AT BEDTIME completed trazodone hydrochloride 50 MG Oral Tablet JEFF ([facility]) Propranolol Hydrochloride 20 MG Oral Tablet propranolo l 20 mg tablet propranolol 20 mg tablet completed propranolol hydrochloride 20 MG Oral Tablet JEFF ([facility]) sennosides 8.6 mg-docusate sodium 50 mg capsule Take 2 capsules by oral route at bedtime. [id number] 2 capsule(s) completed docusate sodium 50 MG / sennosides, RETIREMENT 8.6 MG Oral Capsule JEFF ([facility]) Clonazepam 1 MG Oral Tablet clonazepam 1 mg tablet clonazepam 1 mg ta blet completed clonazepam 1 MG Oral Tablet JEFF ([facility]) Triamcinolone Acetonide 1 MG/ML Topical Cream triamcinolone acetonide 0.1 % topical cream triamcinolone acetonide 0.1 % topical cream completed triamcinolone acetonide 1 MG/ML Topical Cream JEFF ([facility]) buspirone hydrochloride 15 MG Oral Table t buspirone 15 mg tablet TAKE ONE TABLET BY MOUTH THREE TIMES A DAY buspirone 15 mg tablet TAKE ONE TABLET B Y MOUTH THREE TIMES A DAY completed buspirone hydrochloride 15 MG Oral Tablet JEFF ([facility]) buspirone hydrochloride 7.5 MG Oral Tablet buspirone 7 .5 mg tablet buspirone 7.5 mg tablet completed buspirone h ydrochloride 7.5 MG Oral Tablet JEFF ([facility]) Ergocalciferol [id number] UNT Oral Capsule Vi tamin D2 1,250 mcg (50,000 unit) capsule Vitamin D2 1,250 mcg (50,000 unit) capsule completed ergocalciferol 1.25 MG Oral Capsule JEFF ([facility]) lamotrigine 25 MG Oral Tablet lamotrigine 25 mg tablet lamot rigine 25 mg tablet completed lamotrigine 25 MG Oral Tablet JEFF ([facility]) sennosides 8.6 mg-docusate sodium 50 mg capsule Take 2 capsules by oral route at bedtime. [id number] 2 capsule(s) completed docusate sodium 50 MG / sennosides, RETIREMENT 8.6 MG Oral Capsule JEFF ([facility]) Ergocalciferol 43367 UNT Oral Capsule Vi tamin D2 1,250 mcg (50,000 unit) capsule Vitamin D2 1,250 mcg (50,000 unit) capsule completed ergocalciferol 1.25 MG Oral Capsule JEFF ([facility]) Amitriptyline Hydrochloride 50 MG Oral Tablet amitript yline 50 mg tablet amitriptyline 50 mg tablet completed amitriptyline hydrochloride 50 MG Oral Tablet JEFF ([facility]) Steglatro 5 mg tablet [id number] completed ertugliflozin 5 MG Oral Tablet [Steglatro] JEFF ([facility]) Amitriptyline Hydrochloride 50 MG Oral Tablet amitript yline 50 mg tablet amitriptyline 50 mg tablet completed amitriptyline hydrochloride 50 MG Oral Tablet JEFF ([facility]) Clindamycin 150 MG Oral Capsule clindamycin HCl 150 mg capsule clindamycin HCl 150 mg capsule completed clindam ycin 150 MG Oral Capsule [place] ([facility]) sennosides, RETIREMENT 8.6 MG Oral Tablet [Senna-Time] senna 8.6 mg tablet senna 8.6 mg tablet completed sennosi azam, RETIREMENT 8.6 MG Oral Tablet [Senna-Time] JEFF ([facility]) sennosides 8.6 mg-docusate sodium 50 mg capsule Take 2 capsules by oral route at bedtime. [id number] 2 capsule(s) completed docusate sodium 50 MG / sennosides, RETIREMENT 8.6 MG Oral Capsule [place] ([facility]) sennosides 8.6 mg-docusate sodium 50 mg capsule Take 2 capsules by oral route at bedtime. [id number] 2 capsule(s) completed docusate sodium 50 MG / sennosides, RETIREMENT 8.6 MG Oral Capsule [place] ([facility]) lamotrigine 100 MG Oral Tablet lamotrigi ne 100 mg tablet TAKE ONE TABLET BY MOUTH ONCE DAILY lamotrigine 100 mg tablet TAKE ONE TABLET BY MOUTH ONC E DAILY completed lamotrigine 10 0 MG Oral Tablet [place] ([facility]) Propranolol Hydrochloride 20 MG Oral Tablet propranolo l 20 mg tablet propranolol 20 mg tablet completed propranolol hydrochloride 20 MG Oral Tablet JEFF ([facility]) sennosides, RETIREMENT 8.6 MG Oral Tablet [Senna-Time] senna 8.6 mg tablet senna 8.6 mg tablet completed sennosi azam, RETIREMENT 8.6 MG Oral Tablet [Senna-Time] JEFF ([facility]) Isopropyl Alcohol 0.7 ML/ML Medicated Pad Alcohol Prep Pads Alco hol Prep Pads completed isopropyl alco hol 0.7 ML/ML Medicated Pad [place] ([facility]) ziprasidone 60 MG Oral Capsule ziprasidone 60 mg capsu le ziprasidone 60 mg capsule completed ziprasidone 60 MG Oral Capsule [place] ([facility]) Ketoconazole 20 MG/ML Medicated Shampoo ketoconazole 2 % shampoo ketoconazole 2 % shampoo completed ketoconazole 20 MG/ML Medicated Shampoo JEFF ([facility]) ziprasidone 60 MG Oral Capsule ziprasidone 60 mg capsu le ziprasidone 60 mg capsule completed ziprasidone 60 MG Oral Capsule [place] ([facility]) Mirtazapine 15 MG Oral Tablet mirtazapine 15 mg tablet derrick zapine 15 mg tablet completed mirtazapine 15 MG Oral Tablet JE[facility] ([facility]) benztropine mesylate 0.5 MG Oral Tablet benztropine 0. 5 mg tablet benztropine 0.5 mg tablet completed benztrop ine mesylate 0.5 MG Oral Tablet [place] ([facility]) OneTouch Delica Plus Lancet 33 gauge [id number] completed OneTouch Delica Plus Lancet 33 gauge JEFF ([facility]) Triamcinolone Acetonide 1 MG/ML Topical Cream triamcinolone acetonide 0.1 % topical cream triamcinolone acetonide 0.1 % topical cream completed triamcinolone acetonide 1 MG/ML Topical Cream [place] ([facility]) 0.5 ML dulaglutide 1.5 MG/ML Auto-Inject or [Trulicity] Trulicity 0.75 mg/0.5 mL subcutaneous pen injector Trulicity 0.75 mg/0.5 mL subcutaneous pen injector completed 0.5 ML dulaglu tide 1.5 MG/ML Auto-Injector [Trulicity] JEFF ([facility]) Triamcinolone Acetonide 1 MG/ML Topical Cream triamcinolone acetonide 0.1 % topical cream triamcinolone acetonide 0.1 % topical cream completed triamcinolone acetonide 1 MG/ML Topical Cream [place] ([facility]) buspirone hydrochloride 7.5 MG Oral Tablet buspirone 7 .5 mg tablet buspirone 7.5 mg tablet completed buspirone h ydrochloride 7.5 MG Oral Tablet JE[facility] ([facility]) lamotrigine 100 MG Oral Tablet lamotrigi ne 100 mg tablet TAKE ONE TABLET BY MOUTH ONCE DAILY lamotrigine 100 mg tablet TAKE ONE TABLET BY MOUTH ONC E DAILY completed lamotrigine 10 0 MG Oral Tablet [place] ([facility]) buspirone hydrochloride 7.5 MG Oral Tablet buspirone 7 .5 mg tablet buspirone 7.5 mg tablet completed buspirone h ydrochloride 7.5 MG Oral Tablet [place] ([facility]) Amitriptyline Hydrochloride 75 MG Oral Tablet amitript yline 75 mg tablet amitriptyline 75 mg tablet completed amitriptyline hydrochloride 75 MG Oral Tablet [place] ([facility]) Ketoconazole 20 MG/ML Medicated Shampoo ketoconazole 2 % shampoo ketoconazole 2 % shampoo completed ketoconazole 20 MG/ML Medicated Shampoo [place] ([facility]) benztropine mesylate 0.5 MG Oral Tablet benztropine 0. 5 mg tablet benztropine 0.5 mg tablet completed benztrop ine mesylate 0.5 MG Oral Tablet [place] ([facility]) Trazodone Hydrochloride 50 MG Oral Table t trazodone 50 mg tablet TAKE ONE TABLET BY MOUTH EVERY DAY AT BEDTIME trazodone 50 mg tablet TAKE ONE TABLET B Y MOUTH EVERY DAY AT BEDTIME completed trazodone hydrochloride 50 MG Oral Tablet [place] ([facility]) buspirone hydrochloride 10 MG Oral Tablet buspirone 10 mg tablet buspirone 10 mg tablet completed buspirone hydr ochloride 10 MG Oral Tablet [place] ([facility]) Ketoconazole 20 MG/ML Medicated Shampoo ketoconazole 2 % shampoo ketoconazole 2 % shampoo completed ketoconazole 20 MG/ML Medicated Shampoo [place] ([facility]) Cephalexin 500 MG Oral Capsule cephalexin 500 mg capsu le cephalexin 500 mg capsule completed cephalexin 500 MG Oral Capsule [place] ([facility]) buspirone hydrochloride 7.5 MG Oral Tablet buspirone 7 .5 mg tablet buspirone 7.5 mg tablet completed buspirone h ydrochloride 7.5 MG Oral Tablet [place] ([facility]) ziprasidone 60 MG Oral Capsule ziprasidone 60 mg capsu le ziprasidone 60 mg capsule completed ziprasidone 60 MG Oral Capsule JEFF ([facility]) Amitriptyline Hydrochloride 75 MG Oral Tablet amitript yline 75 mg tablet amitriptyline 75 mg tablet completed amitriptyline hydrochloride 75 MG Oral Tablet JEFF ([facility]) Clindamycin 150 MG Oral Capsule clindamycin HCl 150 mg capsule clindamycin HCl 150 mg capsule completed clindam ycin 150 MG Oral Capsule JEFF ([facility]) cefdinir 300 MG Oral Capsule cefdinir 300 mg capsule cefdinir 30 0 mg capsule completed cefdinir 300 M G Oral Capsule JEFF ([facility]) benzonatate 200 MG Oral Capsule benzonatate 200 mg cap [place] benzonatate 200 mg capsule completed benzonatate 20 0 MG Oral Capsule [place] ([facility]) cefdinir 300 MG Oral Capsule cefdinir 300 mg capsule cefdinir 30 0 mg capsule completed cefdinir 300 M G Oral Capsule [place] ([facility]) Isopropyl Alcohol 0.7 ML/ML Medicated Pad Alcohol Prep Pads Alco hol Prep Pads completed isopropyl alco hol 0.7 ML/ML Medicated Pad JEFF ([facility]) lamotrigine 100 MG Oral Tablet lamotrigi ne 100 mg tablet TAKE ONE TABLET BY MOUTH ONCE DAILY lamotrigine 100 mg tablet TAKE ONE TABLET BY MOUTH ONC E DAILY completed lamotrigine 10 0 MG Oral Tablet [place] ([facility]) Triamcinolone Acetonide 1 MG/ML Topical Cream triamcinolone acetonide 0.1 % topical cream triamcinolone acetonide 0.1 % topical cream completed triamcinolone acetonide 1 MG/ML Topical Cream [place] ([facility]) Propranolol Hydrochloride 20 MG Oral Tablet propranolo l 20 mg tablet propranolol 20 mg tablet completed propranolol hydrochloride 20 MG Oral Tablet JEFF ([facility]) Ergocalciferol [id number] UNT Oral Capsule Vi tamin D2 1,250 mcg (50,000 unit) capsule Vitamin D2 1,250 mcg (50,000 unit) capsule completed ergocalciferol 1.25 MG Oral Capsule JEFF ([facility]) sennosides 8.6 mg-docusate sodium 50 mg capsule Take 2 capsules by oral route at bedtime. [id number] 2 capsule(s) completed docusate sodium 50 MG / sennosides, RETIREMENT 8.6 MG Oral Capsule JEFF ([facility]) Ketoconazole 20 MG/ML Medicated Shampoo ketoconazole 2 % shampoo ketoconazole 2 % shampoo completed ketoconazole 20 MG/ML Medicated Shampoo JEFF ([facility]) Mirtazapine 15 MG Oral Tablet mirtazapine 15 mg tablet derrick zapine 15 mg tablet completed mirtazapine 15 MG Oral Tablet JE[facility] ([facility]) Propranolol Hydrochloride 20 MG Oral Tablet propranolo l 20 mg tablet propranolol 20 mg tablet completed propranolol hydrochloride 20 MG Oral Tablet JE[facility] ([facility]) Prazosin 1 MG Oral Capsule prazosin 1 mg capsule prazosin 1 mg capsule completed prazosin 1 MG Oral Capsul e [place] ([facility]) Amitriptyline Hydrochloride 50 MG Oral Tablet amitript yline 50 mg tablet amitriptyline 50 mg tablet completed amitriptyline hydrochloride 50 MG Oral Tablet JE[facility] ([facility]) Steglatro 5 mg tablet [id number] completed ertugliflozin 5 MG Oral Tablet [Steglatro] JEFF ([facility]) Steglatro 5 mg tablet [id number] completed ertugliflozin 5 MG Oral Tablet [Steglatro] JEFF ([facility]) Mirtazapine 15 MG Oral Tablet mirtazapine 15 mg tablet derrick zapine 15 mg tablet completed mirtazapine 15 MG Oral Tablet JE[facility] ([facility]) Clonazepam 1 MG Oral Tablet clonazepam 1 mg tablet clonazepam 1 mg ta blet completed clonazepam 1 MG Oral Tablet JE[facility] ([facility]) Amitriptyline Hydrochloride 75 MG Oral Tablet amitript yline 75 mg tablet amitriptyline 75 mg tablet completed amitriptyline hydrochloride 75 MG Oral Tablet JE[facility] ([facility]) Clonazepam 1 MG Oral Tablet clonazepam 1 mg tablet clonazepam 1 mg ta blet completed clonazepam 1 MG Oral Tablet JE[facility] ([facility]) benztropine mesylate 0.5 MG Oral Tablet benztropine 0. 5 mg tablet benztropine 0.5 mg tablet completed benztrop ine mesylate 0.5 MG Oral Tablet JEFF ([facility]) Mirtazapine 45 MG Oral Tablet mirtazapine 45 mg tablet derrick zapine 45 mg tablet completed mirtazapine 45 MG Oral Tablet [place] ([facility]) OneTouch Delica Plus Lancet 33 gauge [id number] completed OneTouch Delica Plus Lancet 33 gauge JEFF ([facility]) Amitriptyline Hydrochloride 75 MG Oral Tablet amitript yline 75 mg tablet amitriptyline 75 mg tablet completed amitriptyline hydrochloride 75 MG Oral Tablet JE[facility] ([facility]) Amitriptyline Hydrochloride 50 MG Oral Tablet amitript yline 50 mg tablet amitriptyline 50 mg tablet completed amitriptyline hydrochloride 50 MG Oral Tablet [place] ([facility]) 0.5 ML dulaglutide 1.5 MG/ML Auto-Inject or [Trulicity] Trulicity 0.75 mg/0.5 mL subcutaneous pen injector Trulicity 0.75 mg/0.5 mL subcutaneous pen injector completed 0.5 ML dulaglu tide 1.5 MG/ML Auto-Injector [Trulicity] [place] ([facility]) Ketoconazole 20 MG/ML Medicated Shampoo ketoconazole 2 % shampoo ketoconazole 2 % shampoo completed ketoconazole 20 MG/ML Medicated Shampoo [place] ([facility]) 0.5 ML dulaglutide 1.5 MG/ML Auto-Inject or [Trulicity] Trulicity 0.75 mg/0.5 mL subcutaneous pen injector Trulicity 0.75 mg/0.5 mL subcutaneous pen injector completed 0.5 ML dulaglu tide 1.5 MG/ML Auto-Injector [Trulicity] [place] ([facility]) Simvastatin 10 MG Oral Tablet simvastati n 10 mg tablet TAKE ONE TABLET BY MOUTH EVERY DAY simvastatin 10 mg tablet TAKE ONE TABLET BY MOUTH EVERY DAY completed simvastatin 10 MG Oral Table t [place] ([facility]) sennosides, RETIREMENT 8.6 MG Oral Tablet [Senna-Time] senna 8.6 mg tablet senna 8.6 mg tablet completed sennosi azam, RETIREMENT 8.6 MG Oral Tablet [Senna-Time] JEFF ([facility]) ziprasidone 60 MG Oral Capsule ziprasidone 60 mg capsu le ziprasidone 60 mg capsule completed ziprasidone 60 MG Oral Capsule JEFF ([facility]) Docusate Sodium 50 MG / sennosides, RETIREMENT 8.6 MG Oral Tablet sennosides 8.6 mg- docusate sodium 50 mg tablet Take 2 tablets by oral route at bedtime. sennosides 8.6 mg-docusate sodium 50 mg tablet Take 2 tablets by oral route at bedtime. 2 completed docusate sodiu m 50 MG / sennosides, RETIREMENT 8.6 MG Oral Tablet JEFF ([facility]) benztropine mesylate 0.5 MG Oral Tablet benztropine 0. 5 mg tablet benztropine 0.5 mg tablet completed benztrop ine mesylate 0.5 MG Oral Tablet JE[facility] ([facility]) Clonidine Hydrochloride 0.2 MG Oral Tablet clonidine H Cl 0.2 mg tablet clonidine HCl 0.2 mg tablet completed clonidine hydrochloride 0.2 MG Oral Tablet JE[facility] ([facility]) Amitriptyline Hydrochloride 50 MG Oral Tablet amitript yline 50 mg tablet amitriptyline 50 mg tablet completed amitriptyline hydrochloride 50 MG Oral Tablet JE[facility] ([facility]) Ergocalciferol 05381 UNT Oral Capsule Vi tamin D2 1,250 mcg (50,000 unit) capsule Vitamin D2 1,250 mcg (50,000 unit) capsule completed ergocalciferol 1.25 MG Oral Capsule JEFF ([facility]) Azithromycin 250 MG Oral Tablet azithromycin 250 mg ta blet azithromycin 250 mg tablet completed azithromycin 25 0 MG Oral Tablet JE[facility] ([facility]) Clonidine Hydrochloride 0.2 MG Oral Tablet clonidine H Cl 0.2 mg tablet clonidine HCl 0.2 mg tablet completed clonidine hydrochloride 0.2 MG Oral Tablet JE[facility] ([facility]) OneTouch Verio test strips USE UP TO TWO TIMES A DAY DIRECTED [id number] completed OneTouch Verio test strip s JEFF ([facility]) buspirone hydrochloride 10 MG Oral Tablet buspirone 10 mg tablet buspirone 10 mg tablet completed buspirone hydr ochloride 10 MG Oral Tablet JE[facility] ([facility]) Azithromycin 250 MG Oral Tablet azithromycin 250 mg ta blet azithromycin 250 mg tablet completed azithromycin 25 0 MG Oral Tablet JE[facility] ([facility]) Triamcinolone Acetonide 1 MG/ML Topical Cream triamcinolone acetonide 0.1 % topical cream triamcinolone acetonide 0.1 % topical cream completed triamcinolone acetonide 1 MG/ML Topical Cream [place] ([facility]) lamotrigine 25 MG Oral Tablet lamotrigine 25 mg tablet lamot rigine 25 mg tablet completed lamotrigine 25 MG Oral Tablet [facility] ([facility]) Mirtazapine 45 MG Oral Tablet mirtazapine 45 mg tablet derrick zapine 45 mg tablet completed mirtazapine 45 MG Oral Tablet [place] ([facility]) buspirone hydrochloride 10 MG Oral Tablet buspirone 10 mg tablet buspirone 10 mg tablet completed buspirone hydr ochloride 10 MG Oral Tablet [place] ([facility]) Mirtazapine 45 MG Oral Tablet mirtazapine 45 mg tablet derrick zapine 45 mg tablet completed mirtazapine 45 MG Oral Tablet [place] ([facility]) sennosides 8.6 mg-docusate sodium 50 mg capsule Take 2 capsules by oral route at bedtime. [id number] 2 capsule(s) completed docusate sodium 50 MG / sennosides, RETIREMENT 8.6 MG Oral Capsule [place] ([facility]) Ketoconazole 20 MG/ML Medicated Shampoo ketoconazole 2 % shampoo ketoconazole 2 % shampoo completed ketoconazole 20 MG/ML Medicated Shampoo [place] ([facility]) Azithromycin 250 MG Oral Tablet azithromycin 250 mg ta blet azithromycin 250 mg tablet completed azithromycin 25 0 MG Oral Tablet JE[place] ([facility]) Famotidine 20 MG Oral Tablet famotidine 20 mg tablet famotidine 20 mg tablet completed famotidine 20 MG Oral Tablet JE[facility] ([facility]) ziprasidone 60 MG Oral Capsule ziprasidone 60 mg capsu le ziprasidone 60 mg capsule completed ziprasidone 60 MG Oral Capsule [place] ([facility]) Amitriptyline Hydrochloride 75 MG Oral Tablet amitript yline 75 mg tablet amitriptyline 75 mg tablet completed amitriptyline hydrochloride 75 MG Oral Tablet [facility] ([facility]) Mirtazapine 45 MG Oral Tablet mirtazapine 45 mg tablet derrick zapine 45 mg tablet completed mirtazapine 45 MG Oral Tablet JE[facility] ([facility]) Propranolol Hydrochloride 20 MG Oral Tablet propranolo l 20 mg tablet propranolol 20 mg tablet completed propranolol hydrochloride 20 MG Oral Tablet JE[facility] ([facility]) buspirone hydrochloride 15 MG Oral Table t buspirone 15 mg tablet TAKE ONE TABLET BY MOUTH THREE TIMES A DAY buspirone 15 mg tablet TAKE ONE TABLET B Y MOUTH THREE TIMES A DAY completed buspirone hydrochloride 15 MG Oral Tablet JE[facility] ([facility]) Propranolol Hydrochloride 20 MG Oral Tablet propranolo l 20 mg tablet propranolol 20 mg tablet completed propranolol hydrochloride 20 MG Oral Tablet JE[facility] ([facility]) Famotidine 20 MG Oral Tablet famotidine 20 mg tablet famotidine 20 mg tablet completed famotidine 20 MG Oral Tablet JE[facility] ([facility]) benztropine mesylate 0.5 MG Oral Tablet benztropine 0. 5 mg tablet benztropine 0.5 mg tablet completed benztrop ine mesylate 0.5 MG Oral Tablet JE[facility] ([facility]) ziprasidone 60 MG Oral Capsule ziprasidone 60 mg capsu le ziprasidone 60 mg capsule completed ziprasidone 60 MG Oral Capsule JE[facility] ([facility]) Triamcinolone Acetonide 1 MG/ML Topical Cream triamcinolone acetonide 0.1 % topical cream triamcinolone acetonide 0.1 % topical cream completed triamcinolone acetonide 1 MG/ML Topical Cream JEFF ([facility]) Famotidine 20 MG Oral Tablet famotidine 20 mg tablet famotidine 20 mg tablet completed famotidine 20 MG Oral Tablet JE[facility] ([facility]) cefdinir 300 MG Oral Capsule cefdinir 300 mg capsule cefdinir 30 0 mg capsule completed cefdinir 300 M G Oral Capsule JE[facility] ([facility]) OneTouch Delica Plus Lancet 33 gauge [id number] completed OneTouch Delica Plus Lancet 33 gauge JEFF ([facility]) buspirone hydrochloride 10 MG Oral Tablet buspirone 10 mg tablet buspirone 10 mg tablet completed buspirone hydr ochloride 10 MG Oral Tablet JE[facility] ([facility]) Amitriptyline Hydrochloride 50 MG Oral Tablet amitript yline 50 mg tablet amitriptyline 50 mg tablet completed amitriptyline hydrochloride 50 MG Oral Tablet [place] ([facility]) lamotrigine 25 MG Oral Tablet lamotrigine 25 mg tablet lamot rigine 25 mg tablet completed lamotrigine 25 MG Oral Tablet [place] ([facility]) Clonazepam 0.5 MG Disintegrating Oral Ta blet clonazepam 0.5 mg disintegrating tablet clonazepam 0.5 mg disintegrating tablet completed clonazepam 0.5 MG Disintegrating Oral Tablet [place] ([facility]) lamotrigine 100 MG Oral Tablet lamotrigi ne 100 mg tablet TAKE ONE TABLET BY MOUTH ONCE DAILY lamotrigine 100 mg tablet TAKE ONE TABLET BY MOUTH ONC E DAILY completed lamotrigine 10 0 MG Oral Tablet [place] ([facility]) Clonazepam 0.5 MG Oral Tablet clonazepam 0.5 mg tablet TAKE ONE TABLET BY MOUTH EVERY DAY MAXIMUM DAILY DOSE ONE TABLET clonazepam 0.5 mg tablet TAKE ONE TABLET BY MOUTH EVERY DAY MAXIMUM DAILY DOSE ONE TABLET completed clonazepam 0.5 MG Oral Tablet AT [facility] ([facility]) Clonidine Hydrochloride 0.2 MG Oral Tablet clonidine H Cl 0.2 mg tablet clonidine HCl 0.2 mg tablet completed clonidine hydrochloride 0.2 MG Oral Tablet [place] ([facility]) Ergocalciferol [id number] UNT Oral Capsule Vi tamin D2 1,250 mcg (50,000 unit) capsule Vitamin D2 1,250 mcg (50,000 unit) capsule completed ergocalciferol 1.25 MG Oral Capsule [place] ([facility]) benztropine mesylate 0.5 MG Oral Tablet benztropine 0. 5 mg tablet benztropine 0.5 mg tablet completed benztrop ine mesylate 0.5 MG Oral Tablet [place] ([facility]) Docusate Sodium 50 MG / sennosides, RETIREMENT 8.6 MG Oral Tablet sennosides 8.6 mg- docusate sodium 50 mg tablet Take 2 tablets by oral route at bedtime. sennosides 8.6 mg-docusate sodium 50 mg tablet Take 2 tablets by oral route at bedtime. 2 completed docusate sodiu m 50 MG / sennosides, RETIREMENT 8.6 MG Oral Tablet [place] ([facility]) OneTouch Delica Plus Lancet 33 gauge [id number] completed OneTouch Delica Plus Lancet 33 gauge [place] ([facility]) Prazosin 1 MG Oral Capsule prazosin 1 mg capsule prazosin 1 mg capsule completed prazosin 1 MG Oral Capsul e [place] ([facility]) Clindamycin 150 MG Oral Capsule clindamycin HCl 150 mg capsule clindamycin HCl 150 mg capsule completed clindam ycin 150 MG Oral Capsule [place] ([facility]) ziprasidone 60 MG Oral Capsule ziprasidone 60 mg capsu le ziprasidone 60 mg capsule completed ziprasidone 60 MG Oral Capsule [place] ([facility]) Docusate Sodium 100 MG Oral Capsule [DOK] DOK 100 mg capsule DOK 100 mg capsule completed docusate sodiu m 100 MG Oral Capsule [DOK] [place] ([facility]) Ergocalciferol [id number] UNT Oral Capsule Vi tamin D2 1,250 mcg (50,000 unit) capsule Vitamin D2 1,250 mcg (50,000 unit) capsule completed ergocalciferol 1.25 MG Oral Capsule [place] ([facility]) Triamcinolone Acetonide 1 MG/ML Topical Cream triamcinolone acetonide 0.1 % topical cream triamcinolone acetonide 0.1 % topical cream completed triamcinolone acetonide 1 MG/ML Topical Cream [place] ([facility]) Ketoconazole 20 MG/ML Medicated Shampoo ketoconazole 2 % shampoo ketoconazole 2 % shampoo completed ketoconazole 20 MG/ML Medicated Shampoo [place] ([facility]) Mirtazapine 15 MG Oral Tablet mirtazapine 15 mg tablet derrick zapine 15 mg tablet completed mirtazapine 15 MG Oral Tablet [place] ([facility]) lamotrigine 25 MG Oral Tablet lamotrigine 25 mg tablet lamot rigine 25 mg tablet completed lamotrigine 25 MG Oral Tablet [place] ([facility]) Clindamycin 150 MG Oral Capsule clindamycin HCl 150 mg capsule clindamycin HCl 150 mg capsule completed clindam ycin 150 MG Oral Capsule [facility] ([facility]) Amitriptyline Hydrochloride 75 MG Oral Tablet amitript yline 75 mg tablet amitriptyline 75 mg tablet completed amitriptyline hydrochloride 75 MG Oral Tablet [facility] ([facility]) Ketoconazole 20 MG/ML Medicated Shampoo ketoconazole 2 % shampoo ketoconazole 2 % shampoo completed ketoconazole 20 MG/ML Medicated Shampoo [place] ([facility]) Clonazepam 1 MG Oral Tablet clonazepam 1 mg tablet clonazepam 1 mg ta blet completed clonazepam 1 MG Oral Tablet [facility] ([facility]) Isopropyl Alcohol 0.7 ML/ML Medicated Pad Alcohol Prep Pads Alco hol Prep Pads completed isopropyl alco hol 0.7 ML/ML Medicated Pad [facility] ([facility]) Clonazepam 1 MG Oral Tablet clonazepam 1 mg tablet clonazepam 1 mg ta blet completed clonazepam 1 MG Oral Tablet [place] ([facility]) Mirtazapine 15 MG Oral Tablet mirtazapine 15 mg tablet derrick zapine 15 mg tablet completed mirtazapine 15 MG Oral Tablet [place] ([facility]) Mirtazapine 15 MG Oral Tablet mirtazapine 15 mg tablet derrick zapine 15 mg tablet completed mirtazapine 15 MG Oral Tablet [place] ([facility]) Clonidine Hydrochloride 0.2 MG Oral Tablet clonidine H Cl 0.2 mg tablet clonidine HCl 0.2 mg tablet completed clonidine hydrochloride 0.2 MG Oral Tablet [place] ([facility]) Famotidine 20 MG Oral Tablet famotidine 20 mg tablet famotidine 20 mg tablet completed famotidine 20 MG Oral Tablet [place] ([facility]) buspirone hydrochloride 15 MG Oral Table t buspirone 15 mg tablet TAKE ONE TABLET BY MOUTH THREE TIMES A DAY buspirone 15 mg tablet TAKE ONE TABLET B Y MOUTH THREE TIMES A DAY completed buspirone hydrochloride 15 MG Oral Tablet [place] ([facility]) Ergocalciferol [id number] UNT Oral Capsule Vi tamin D2 1,250 mcg (50,000 unit) capsule Vitamin D2 1,250 mcg (50,000 unit) capsule completed ergocalciferol 1.25 MG Oral Capsule [place] ([facility]) OneTouch Verio test strips USE DIRECTED UP TO TWO TIMES A DAY [id number] completed OneTouch Verio test strip s [place] ([facility]) benztropine mesylate 0.5 MG Oral Tablet benztropine 0. 5 mg tablet benztropine 0.5 mg tablet completed benztrop ine mesylate 0.5 MG Oral Tablet [place] ([facility]) sennosides 8.6 mg-docusate sodium 50 mg capsule Take 2 capsules by oral route at bedtime. [id number] 2 capsule(s) completed docusate sodium 50 MG / sennosides, RETIREMENT 8.6 MG Oral Capsule [place] ([facility]) 0.5 ML dulaglutide 1.5 MG/ML Auto-Inject or [Trulicity] Trulicity 0.75 mg/0.5 mL subcutaneous pen injector Trulicity 0.75 mg/0.5 mL subcutaneous pen injector completed 0.5 ML dulaglu tide 1.5 MG/ML Auto-Injector [Trulicity] [place] ([facility]) Triamcinolone Acetonide 1 MG/ML Topical Cream triamcinolone acetonide 0.1 % topical cream triamcinolone acetonide 0.1 % topical cream completed triamcinolone acetonide 1 MG/ML Topical Cream [place] ([facility]) benztropine mesylate 0.5 MG Oral Tablet benztropine 0. 5 mg tablet benztropine 0.5 mg tablet completed benztrop ine mesylate 0.5 MG Oral Tablet [facility] ([facility]) benzonatate 200 MG Oral Capsule benzonatate 200 mg cap [place] benzonatate 200 mg capsule completed benzonatate 20 0 MG Oral Capsule [facility] ([facility]) Propranolol Hydrochloride 20 MG Oral Tablet propranolo l 20 mg tablet propranolol 20 mg tablet completed propranolol hydrochloride 20 MG Oral Tablet [facility] ([facility]) OneTouch Verio test strips USE UP TO TWO TIMES A DAY DIRECTED [id number] completed OneTouch Verio test strip s [facility] ([facility]) benzonatate 200 MG Oral Capsule benzonatate 200 mg cap [place] benzonatate 200 mg capsule completed benzonatate 20 0 MG Oral Capsule [facility] ([facility]) Prazosin 1 MG Oral Capsule prazosin 1 mg capsule prazosin 1 mg capsule completed prazosin 1 MG Oral Capsul e [facility] ([facility]) benzonatate 200 MG Oral Capsule benzonatate 200 mg cap [place] benzonatate 200 mg capsule completed benzonatate 20 0 MG Oral Capsule [facility] ([facility]) Mirtazapine 45 MG Oral Tablet mirtazapine 45 mg tablet derrick zapine 45 mg tablet completed mirtazapine 45 MG Oral Tablet [facility] ([facility]) buspirone hydrochloride 7.5 MG Oral Tablet buspirone 7 .5 mg tablet buspirone 7.5 mg tablet completed buspirone h ydrochloride 7.5 MG Oral Tablet [facility] ([facility]) Amitriptyline Hydrochloride 50 MG Oral Tablet amitript yline 50 mg tablet amitriptyline 50 mg tablet completed amitriptyline hydrochloride 50 MG Oral Tablet [place] ([facility]) ziprasidone 60 MG Oral Capsule ziprasidone 60 mg capsu le ziprasidone 60 mg capsule completed ziprasidone 60 MG Oral Capsule [facility] ([facility]) Clindamycin 150 MG Oral Capsule clindamycin HCl 150 mg capsule clindamycin HCl 150 mg capsule completed clindam ycin 150 MG Oral Capsule [facility] ([facility]) Mirtazapine 45 MG Oral Tablet mirtazapine 45 mg tablet derrick zapine 45 mg tablet completed mirtazapine 45 MG Oral Tablet [place] ([facility]) buspirone hydrochloride 7.5 MG Oral Tablet buspirone 7 .5 mg tablet buspirone 7.5 mg tablet completed buspirone h ydrochloride 7.5 MG Oral Tablet [facility] ([facility]) benzonatate 200 MG Oral Capsule benzonatate 200 mg cap [place] benzonatate 200 mg capsule completed benzonatate 20 0 MG Oral Capsule [place] ([facility]) Famotidine 20 MG Oral Tablet famotidine 20 mg tablet famotidine 20 mg tablet completed famotidine 20 MG Oral Tablet [facility] ([facility]) Ergocalciferol 34926 UNT Oral Capsule Vi tamin D2 1,250 mcg (50,000 unit) capsule Vitamin D2 1,250 mcg (50,000 unit) capsule completed ergocalciferol 1.25 MG Oral Capsule [facility] ([facility]) 0.5 ML dulaglutide 1.5 MG/ML Auto-Inject or [Trulicity] Trulicity 0.75 mg/0.5 mL subcutaneous pen injector Trulicity 0.75 mg/0.5 mL subcutaneous pen injector completed 0.5 ML dulaglu tide 1.5 MG/ML Auto-Injector [Trulicity] [place] ([facility]) buspirone hydrochloride 7.5 MG Oral Tablet buspirone 7 .5 mg tablet buspirone 7.5 mg tablet completed buspirone h ydrochloride 7.5 MG Oral Tablet [facility] ([facility]) cefdinir 300 MG Oral Capsule cefdinir 300 mg capsule cefdinir 30 0 mg capsule completed cefdinir 300 M G Oral Capsule [place] ([facility]) Amitriptyline Hydrochloride 50 MG Oral Tablet amitript yline 50 mg tablet amitriptyline 50 mg tablet completed amitriptyline hydrochloride 50 MG Oral Tablet [facility] ([facility]) Mirtazapine 15 MG Oral Tablet mirtazapine 15 mg tablet derrick zapine 15 mg tablet completed mirtazapine 15 MG Oral Tablet [facility] ([facility]) Clonidine Hydrochloride 0.2 MG Oral Tablet clonidine H Cl 0.2 mg tablet clonidine HCl 0.2 mg tablet completed clonidine hydrochloride 0.2 MG Oral Tablet [facility] ([facility]) Clonazepam 1 MG Oral Tablet clonazepam 1 mg tablet clonazepam 1 mg ta blet completed clonazepam 1 MG Oral Tablet [place] ([facility]) sennosides 8.6 mg-docusate sodium 50 mg capsule Take 2 capsules by oral route at bedtime. [id number] 2 capsule(s) completed docusate sodium 50 MG / sennosides, RETIREMENT 8.6 MG Oral Capsule [facility] ([facility]) Azithromycin 250 MG Oral Tablet azithromycin 250 mg ta blet azithromycin 250 mg tablet completed azithromycin 25 0 MG Oral Tablet [place] ([facility]) cefdinir 300 MG Oral Capsule cefdinir 300 mg capsule cefdinir 30 0 mg capsule completed cefdinir 300 M G Oral Capsule [facility] ([facility]) Docusate Sodium 50 MG / sennosides, RETIREMENT 8.6 MG Oral Tablet sennosides 8.6 mg- docusate sodium 50 mg tablet Take 2 tablets by oral route at bedtime. sennosides 8.6 mg-docusate sodium 50 mg tablet Take 2 tablets by oral route at bedtime. 2 completed docusate sodiu m 50 MG / sennosides, RETIREMENT 8.6 MG Oral Tablet [facility] ([facility]) Clonazepam 1 MG Oral Tablet clonazepam 1 mg tablet clonazepam 1 mg ta blet completed clonazepam 1 MG Oral Tablet [facility] ([facility]) Clonazepam 1 MG Oral Tablet clonazepam 1 mg tablet clonazepam 1 mg ta blet completed clonazepam 1 MG Oral Tablet [facility] ([facility]) benztropine mesylate 0.5 MG Oral Tablet benztropine 0. 5 mg tablet benztropine 0.5 mg tablet completed benztrop ine mesylate 0.5 MG Oral Tablet [facility] ([facility]) ziprasidone 60 MG [facility] mg capsule completed ziprasidone 60 MG Oral Capsule [facility] ([facility]) Amitriptyline Hydrochloride 75 MG Oral Tablet amitript yline 75 mg tablet amitriptyline 75 mg tablet completed amitriptyline hydrochloride 75 MG Oral Tablet [facility] ([facility]) Docusate Sodium 50 MG / sennosides, RETIREMENT 8.6 MG Oral Tablet sennosides 8.6 mg- docusate sodium 50 mg tablet Take 2 tablets by oral route at bedtime. sennosides 8.6 mg-docusate sodium 50 mg tablet Take 2 tablets by oral route at bedtime. 2 completed docusate sodiu m 50 MG / sennosides, RETIREMENT 8.6 MG Oral Tablet [facility] ([facility]) benztropine mesylate 0.5 MG Oral Tablet benztropine 0. 5 mg tablet benztropine 0.5 mg tablet completed benztrop ine mesylate 0.5 MG Oral Tablet [facility] ([facility]) Steglatro 5 mg tablet [id number] completed ertugliflozin 5 MG Oral Tablet [Steglatro] [facility] ([facility]) buspirone hydrochloride 10 MG Oral Tablet buspirone 10 mg tablet buspirone 10 mg tablet completed buspirone hydr ochloride 10 MG Oral Tablet [facility] ([facility]) OneTouch Delica Plus Lancet 33 gauge [id number] completed OneTouch Delica Plus Lancet 33 gauge [facility] ([facility]) Prazosin 1 MG Oral Capsule prazosin 1 mg capsule prazosin 1 mg capsule completed prazosin 1 MG Oral Capsul e [facility] ([facility]) Clonazepam 0.5 MG Disintegrating Oral Ta blet clonazepam 0.5 mg disintegrating tablet clonazepam 0.5 mg disintegrating tablet completed clonazepam 0.5 MG Disintegrating Oral Tablet [facility] ([facility]) Docusate Sodium 50 MG / sennosides, RETIREMENT 8.6 MG Oral Tablet sennosides 8.6 mg- docusate sodium 50 mg tablet Take 2 tablets by oral route at bedtime. sennosides 8.6 mg-docusate sodium 50 mg tablet Take 2 tablets by oral route at bedtime. 2 completed docusate sodiu m 50 MG / sennosides, RETIREMENT 8.6 MG Oral Tablet [facility] ([facility]) Docusate Sodium 50 MG / sennosides, RETIREMENT 8.6 MG Oral Tablet sennosides 8.6 mg- docusate sodium 50 mg tablet Take 2 tablets by oral route at bedtime. sennosides 8.6 mg-docusate sodium 50 mg tablet Take 2 tablets by oral route at bedtime. 2 completed docusate sodiu m 50 MG / sennosides, RETIREMENT 8.6 MG Oral Tablet [facility] ([facility]) Steglatro 5 mg tablet [id number] completed ertugliflozin 5 MG Oral Tablet [Steglatro] [place] ([facility]) ziprasidone 60 MG Oral Capsule ziprasidone 60 mg capsu le ziprasidone 60 mg capsule completed ziprasidone 60 MG Oral Capsule [facility] ([facility]) Amitriptyline Hydrochloride 50 MG Oral Tablet amitript yline 50 mg tablet amitriptyline 50 mg tablet completed amitriptyline hydrochloride 50 MG Oral Tablet [facility] ([facility]) Prazosin 1 MG Oral Capsule prazosin 1 mg capsule prazosin 1 mg capsule completed prazosin 1 MG Oral Capsul e [place] ([facility]) sennosides, RETIREMENT 8.6 MG Oral Tablet [Senna-Time] senna 8.6 mg tablet senna 8.6 mg tablet completed sennosi azam, RETIREMENT 8.6 MG Oral Tablet [Senna-Time] [place] ([facility]) 0.5 ML dulaglutide 1.5 MG/ML Auto-Inject or [Trulicity] Trulicity 0.75 mg/0.5 mL subcutaneous pen injector Trulicity 0.75 mg/0.5 mL subcutaneous pen injector completed 0.5 ML dulaglu tide 1.5 MG/ML Auto-Injector [Trulicity] [place] ([facility]) Mirtazapine 45 MG Oral Tablet mirtazapine 45 mg tablet derrick zapine 45 mg tablet completed mirtazapine 45 MG Oral Tablet [place] ([facility]) Docusate Sodium 50 MG / sennosides, RETIREMENT 8.6 MG Oral Tablet sennosides 8.6 mg- docusate sodium 50 mg tablet Take 2 tablets by oral route at bedtime. sennosides 8.6 mg-docusate sodium 50 mg tablet Take 2 tablets by oral route at bedtime. 2 completed docusate sodiu m 50 MG / sennosides, RETIREMENT 8.6 MG Oral Tablet [place] ([facility]) buspirone hydrochloride 10 MG Oral Tablet buspirone 10 mg tablet buspirone 10 mg tablet completed buspirone hydr ochloride 10 MG Oral Tablet [place] ([facility]) Mirtazapine 45 MG Oral Tablet mirtazapine 45 mg tablet derrick zapine 45 mg tablet completed mirtazapine 45 MG Oral Tablet [facility] ([facility]) Amitriptyline Hydrochloride 50 MG Oral Tablet amitript yline 50 mg tablet amitriptyline 50 mg tablet completed amitriptyline hydrochloride 50 MG Oral Tablet [facility] ([facility]) Clonazepam 1 MG Oral Tablet clonazepam 1 mg tablet clonazepam 1 mg ta blet completed clonazepam 1 MG Oral Tablet [facility] ([facility]) Ketoconazole 20 MG/ML Medicated Shampoo ketoconazole 2 % shampoo ketoconazole 2 % shampoo completed ketoconazole 20 MG/ML Medicated Shampoo [facility] ([facility]) OneTouch Verio test strips USE UP TO TWO TIMES A DAY DIRECTED [id number] completed OneTouch Verio test strip s [place] ([facility]) Famotidine 20 MG Oral Tablet famotidine 20 mg tablet famotidine 20 mg tablet completed famotidine 20 MG Oral Tablet [facility] ([facility]) Clonazepam 1 MG Oral Tablet clonazepam 1 mg tablet clonazepam 1 mg ta blet completed clonazepam 1 MG Oral Tablet [facility] ([facility]) Azithromycin 250 MG Oral Tablet azithromycin 250 mg ta blet azithromycin 250 mg tablet completed azithromycin 25 0 MG Oral Tablet [place] ([facility]) Mirtazapine 45 MG Oral Tablet mirtazapine 45 mg tablet derrick zapine 45 mg tablet completed mirtazapine 45 MG Oral Tablet [place] ([facility]) Amitriptyline Hydrochloride 75 MG Oral Tablet amitript yline 75 mg tablet amitriptyline 75 mg tablet completed amitriptyline hydrochloride 75 MG Oral Tablet [facility] ([facility]) Ketoconazole 20 MG/ML Medicated Shampoo ketoconazole 2 % shampoo ketoconazole 2 % shampoo completed ketoconazole 20 MG/ML Medicated Shampoo [place] ([facility]) Clonazepam 1 MG Oral Tablet clonazepam 1 mg tablet clonazepam 1 mg ta blet completed clonazepam 1 MG Oral Tablet [facility] ([facility]) Triamcinolone Acetonide 1 MG/ML Topical Cream triamcinolone acetonide 0.1 % topical cream triamcinolone acetonide 0.1 % topical cream completed triamcinolone acetonide 1 MG/ML Topical Cream [place] ([facility]) Famotidine 20 MG Oral Tablet famotidine 20 mg tablet famotidine 20 mg tablet completed famotidine 20 MG Oral Tablet [facility] ([facility]) Steglatro 5 mg tablet [id number] completed ertugliflozin 5 MG Oral Tablet [Steglatro] [facility] ([facility]) Clonazepam 0.5 MG Oral Tablet clonazepam 0.5 mg tablet TAKE ONE TABLET BY MOUTH NEEDED FOR 3 DAYS THEN ONE HALF TABLET UNTIL FINISHED MAXIMUM DAILY DOSE ONE TABLET clonazepam 0.5 mg tablet TAKE ONE TABLET BY MOUTH NEEDED FOR 3 DAYS THEN ONE HALF TABLET UNTIL FINISHED MAXIMUM DAILY DOSE ONE TABLET completed clonazepam 0.5 MG Or al Tablet [facility] ([facility]) Mirtazapine 45 MG Oral Tablet mirtazapine 45 mg tablet derrick zapine 45 mg tablet completed mirtazapine 45 MG Oral Tablet [place] ([facility]) Ketoconazole 20 MG/ML Medicated Shampoo ketoconazole 2 % shampoo ketoconazole 2 % shampoo completed ketoconazole 20 MG/ML Medicated Shampoo [facility] ([facility]) Azithromycin 250 MG Oral Tablet azithromycin 250 mg ta blet azithromycin 250 mg tablet completed azithromycin 25 0 MG Oral Tablet [facility] ([facility]) cefdinir 300 MG Oral Capsule cefdinir 300 mg capsule cefdinir 30 0 mg capsule completed cefdinir 300 M G Oral Capsule [place] ([facility]) OneTouch Verio Flex Meter [id number] compl eted OneTouch Verio Flex Meter [place] ([facility]) Simvastatin 10 MG Oral Tablet simvastati n 10 mg tablet TAKE ONE TABLET BY MOUTH EVERY DAY simvastatin 10 mg tablet TAKE ONE TABLET BY MOUTH EVERY DAY completed simvastatin 10 MG Oral Table t [place] ([facility]) buspirone hydrochloride 7.5 MG Oral Tablet buspirone 7 .5 mg tablet buspirone 7.5 mg tablet completed buspirone h ydrochloride 7.5 MG Oral Tablet [place] ([facility]) Famotidine 20 MG Oral Tablet famotidine 20 mg tablet famotidine 20 mg tablet completed famotidine 20 MG Oral Tablet [place] ([facility]) buspirone hydrochloride 7.5 MG Oral Tablet buspirone 7 .5 mg tablet buspirone 7.5 mg tablet completed buspirone h ydrochloride 7.5 MG Oral Tablet [facility] ([facility]) buspirone hydrochloride 7.5 MG Oral Tablet buspirone 7 .5 mg tablet buspirone 7.5 mg tablet completed buspirone h ydrochloride 7.5 MG Oral Tablet [place] ([facility]) sennosides 8.6 mg-docusate sodium 50 mg capsule Take 2 capsules by oral route at bedtime. [id number] 2 capsule(s) completed docusate sodium 50 MG / sennosides, RETIREMENT 8.6 MG Oral Capsule [facility] ([facility]) cefdinir 300 MG Oral Capsule cefdinir 300 mg capsule cefdinir 30 0 mg capsule completed cefdinir 300 M G Oral Capsule [facility] ([facility]) Triamcinolone Acetonide 1 MG/ML Topical Cream triamcinolone acetonide 0.1 % topical cream triamcinolone acetonide 0.1 % topical cream completed triamcinolone acetonide 1 MG/ML Topical Cream [place] ([facility]) Docusate Sodium 100 MG Oral Capsule [DOK] DOK 100 mg capsule DOK 100 mg capsule completed docusate sodiu m 100 MG Oral Capsule [DOK] [place] ([facility]) benzonatate 200 MG Oral Capsule benzonatate 200 mg cap [place] benzonatate 200 mg capsule completed benzonatate 20 0 MG Oral Capsule [place] ([facility]) Simvastatin 10 MG Oral Tablet simvastati n 10 mg tablet TAKE ONE TABLET BY MOUTH EVERY DAY simvastatin 10 mg tablet TAKE ONE TABLET BY MOUTH EVERY DAY completed simvastatin 10 MG Oral Table t [facility] ([facility]) Clonazepam 1 MG Oral Tablet clonazepam 1 mg tablet clonazepam 1 mg ta blet completed clonazepam 1 MG Oral Tablet [place] ([facility]) Steglatro 5 mg tablet [id number] completed ertugliflozin 5 MG Oral Tablet [Steglatro] [place] ([facility]) Clonidine Hydrochloride 0.2 MG Oral Tablet clonidine H Cl 0.2 mg tablet clonidine HCl 0.2 mg tablet completed clonidine hydrochloride 0.2 MG Oral Tablet [facility] ([facility]) OneTouch Verio Flex Meter [id number] compl eted OneTouch Verio Flex Meter [facility] ([facility]) Mirtazapine 45 MG Oral Tablet mirtazapine 45 mg tablet derrick zapine 45 mg tablet completed mirtazapine 45 MG Oral Tablet [place] ([facility]) Amitriptyline Hydrochloride 50 MG Oral Tablet amitript yline 50 mg tablet amitriptyline 50 mg tablet completed amitriptyline hydrochloride 50 MG Oral Tablet [place] ([facility]) Famotidine 20 MG Oral Tablet famotidine 20 mg tablet famotidine 20 mg tablet completed famotidine 20 MG Oral Tablet [facility] ([facility]) Clonidine Hydrochloride 0.2 MG Oral Tablet clonidine H Cl 0.2 mg tablet clonidine HCl 0.2 mg tablet completed clonidine hydrochloride 0.2 MG Oral Tablet [facility] ([facility]) OneTouch Verio Flex Meter [id number] compl eted OneTouch Verio Flex Meter [facility] ([facility]) Mirtazapine 45 MG Oral Tablet mirtazapine 45 mg tablet derrick zapine 45 mg tablet completed mirtazapine 45 MG Oral Tablet [place] ([facility]) Clonazepam 1 MG Oral Tablet clonazepam 1 mg tablet clonazepam 1 mg ta blet completed clonazepam 1 MG Oral Tablet [place] ([facility]) Steglatro 5 mg tablet [id number] completed ertugliflozin 5 MG Oral Tablet [Steglatro] [place] ([facility]) Amitriptyline Hydrochloride 50 MG Oral Tablet amitript yline 50 mg tablet amitriptyline 50 mg tablet completed amitriptyline hydrochloride 50 MG Oral Tablet [place] ([facility]) Mirtazapine 15 MG Oral Tablet mirtazapine 15 mg tablet derrick zapine 15 mg tablet completed mirtazapine 15 MG Oral Tablet [place] ([facility]) benzonatate 200 MG Oral Capsule benzonatate 200 mg cap [place] benzonatate 200 mg capsule completed benzonatate 20 0 MG Oral Capsule [place] ([facility]) Steglatro 5 mg tablet [id number] completed ertugliflozin 5 MG Oral Tablet [Steglatro] [facility] ([facility]) buspirone hydrochloride 10 MG Oral Tablet buspirone 10 mg tablet buspirone 10 mg tablet completed buspirone hydr ochloride 10 MG Oral Tablet [place] ([facility]) Propranolol Hydrochloride 20 MG Oral Tablet propranolo l 20 mg tablet propranolol 20 mg tablet completed propranolol hydrochloride 20 MG Oral Tablet [place] ([facility]) BD Ultra-Fine Short Pen Needle 31 gauge x 5/16" USE ONCE DAILY [id number] completed BD Ultra-Fine Short Pen Need le 31 gauge x 5/16" [place] ([facility]) Steglatro 5 mg tablet [id number] completed ertugliflozin 5 MG Oral Tablet [Steglatro] [place] ([facility]) buspirone hydrochloride 10 MG Oral Tablet buspirone 10 mg tablet buspirone 10 mg tablet completed buspirone hydr ochloride 10 MG Oral Tablet [place] ([facility]) lamotrigine 25 MG Oral Tablet lamotrigine 25 mg tablet lamot rigine 25 mg tablet completed lamotrigine 25 MG Oral Tablet [place] ([facility]) Isopropyl Alcohol 0.7 ML/ML Medicated Pad Alcohol Prep Pads Alco hol Prep Pads completed isopropyl alco hol 0.7 ML/ML Medicated Pad [place] ([facility]) cefdinir 300 MG Oral Capsule cefdinir 300 mg capsule cefdinir 30 0 mg capsule completed cefdinir 300 M G Oral Capsule [place] ([facility]) Azithromycin 250 MG Oral Tablet azithromycin 250 mg ta blet azithromycin 250 mg tablet completed azithromycin 25 0 MG Oral Tablet [place] ([facility]) sennosides 8.6 mg-docusate sodium 50 mg capsule Take 2 capsules by oral route at bedtime. [id number] 2 capsule(s) completed docusate sodium 50 MG / sennosides, RETIREMENT 8.6 MG Oral Capsule [place] ([facility]) Propranolol Hydrochloride 20 MG Oral Tablet propranolo l 20 mg tablet propranolol 20 mg tablet completed propranolol hydrochloride 20 MG Oral Tablet [place] ([facility]) Docusate Sodium 50 MG / sennosides, RETIREMENT 8.6 MG Oral Tablet sennosides 8.6 mg- docusate sodium 50 mg tablet Take 2 tablets by oral route at bedtime. sennosides 8.6 mg-docusate sodium 50 mg tablet Take 2 tablets by oral route at bedtime. 2 completed docusate sodiu m 50 MG / sennosides, RETIREMENT 8.6 MG Oral Tablet JE[place] ([facility]) OneTouch Delica Plus Lancet 33 gauge [id number] completed OneTouch Delica Plus Lancet 33 gauge [place] ([facility]) buspirone hydrochloride 7.5 MG Oral Tablet buspirone 7 .5 mg tablet buspirone 7.5 mg tablet completed buspirone h ydrochloride 7.5 MG Oral Tablet [place] ([facility]) Azithromycin 250 MG Oral Tablet azithromycin 250 mg ta blet azithromycin 250 mg tablet completed azithromycin 25 0 MG Oral Tablet [place] ([facility]) Clonidine Hydrochloride 0.2 MG Oral Tablet clonidine H Cl 0.2 mg tablet clonidine HCl 0.2 mg tablet completed clonidine hydrochloride 0.2 MG Oral Tablet [place] ([facility]) Clonidine Hydrochloride 0.2 MG Oral Tablet clonidine H Cl 0.2 mg tablet clonidine HCl 0.2 mg tablet completed clonidine hydrochloride 0.2 MG Oral Tablet [place] ([facility]) Clonazepam 1 MG Oral Tablet clonazepam 1 mg tablet clonazepam 1 mg ta blet completed clonazepam 1 MG Oral Tablet [place] ([facility]) Simvastatin 10 MG Oral Tablet simvastati n 10 mg tablet TAKE ONE TABLET BY MOUTH EVERY DAY simvastatin 10 mg tablet TAKE ONE TABLET BY MOUTH EVERY DAY completed simvastatin 10 MG Oral Table t [place] ([facility]) benztropine mesylate 0.5 MG Oral Tablet benztropine 0. 5 mg tablet benztropine 0.5 mg tablet completed benztrop ine mesylate 0.5 MG Oral Tablet [place] ([facility]) lamotrigine 25 MG Oral Tablet lamotrigine 25 mg tablet lamot rigine 25 mg tablet completed lamotrigine 25 MG Oral Tablet [place] ([facility]) Amitriptyline Hydrochloride 75 MG Oral Tablet amitript yline 75 mg tablet amitriptyline 75 mg tablet completed amitriptyline hydrochloride 75 MG Oral Tablet JE[place] ([facility]) Mirtazapine 15 MG Oral Tablet mirtazapine 15 mg tablet derrick zapine 15 mg tablet completed mirtazapine 15 MG Oral Tablet [place] ([facility]) Propranolol Hydrochloride 20 MG Oral Tablet propranolo l 20 mg tablet propranolol 20 mg tablet completed propranolol hydrochloride 20 MG Oral Tablet JE[place] ([facility]) OneTouch Delica Plus Lancet 33 gauge [id number] completed OneTouch Delica Plus Lancet 33 gauge [place] ([facility]) Azithromycin 250 MG Oral Tablet azithromycin 250 mg ta blet azithromycin 250 mg tablet completed azithromycin 25 0 MG Oral Tablet [place] ([facility]) Docusate Sodium 50 MG / sennosides, RETIREMENT 8.6 MG Oral Tablet sennosides 8.6 mg- docusate sodium 50 mg tablet Take 2 tablets by oral route at bedtime. sennosides 8.6 mg-docusate sodium 50 mg tablet Take 2 tablets by oral route at bedtime. 2 completed docusate sodiu m 50 MG / sennosides, RETIREMENT 8.6 MG Oral Tablet JE[place] ([facility]) Isopropyl Alcohol 0.7 ML/ML Medicated Pad Alcohol Prep Pads Alco hol Prep Pads completed isopropyl alco hol 0.7 ML/ML Medicated Pad [place] ([facility]) Amitriptyline Hydrochloride 75 MG Oral Tablet amitript yline 75 mg tablet amitriptyline 75 mg tablet completed amitriptyline hydrochloride 75 MG Oral Tablet [place] ([facility]) 0.5 ML dulaglutide 1.5 MG/ML Auto-Inject or [Trulicity] Trulicity 0.75 mg/0.5 mL subcutaneous pen injector Trulicity 0.75 mg/0.5 mL subcutaneous pen injector completed 0.5 ML dulaglu tide 1.5 MG/ML Auto-Injector [Trulicity] [place] ([facility]) Clonazepam 0.5 MG Disintegrating Oral Ta blet clonazepam 0.5 mg disintegrating tablet clonazepam 0.5 mg disintegrating tablet completed clonazepam 0.5 MG Disintegrating Oral Tablet [place] ([facility]) Docusate Sodium 100 MG Oral Capsule [DOK] DOK 100 mg capsule DOK 100 mg capsule completed docusate sodiu m 100 MG Oral Capsule [DOK] [place] ([facility]) Prazosin 1 MG Oral Capsule prazosin 1 mg capsule prazosin 1 mg capsule completed prazosin 1 MG Oral Capsul e [place] ([facility]) Steglatro 5 mg tablet [id number] completed ertugliflozin 5 MG Oral Tablet [Steglatro] [place] ([facility]) Amitriptyline Hydrochloride 75 MG Oral Tablet amitript yline 75 mg tablet amitriptyline 75 mg tablet completed amitriptyline hydrochloride 75 MG Oral Tablet [place] ([facility]) buspirone hydrochloride 7.5 MG Oral Tablet buspirone 7 .5 mg tablet buspirone 7.5 mg tablet completed buspirone h ydrochloride 7.5 MG Oral Tablet [place] ([facility]) Clindamycin 150 MG Oral Capsule clindamycin HCl 150 mg capsule clindamycin HCl 150 mg capsule completed clindam ycin 150 MG Oral Capsule [place] ([facility]) benztropine mesylate 0.5 MG Oral Tablet benztropine 0. 5 mg tablet benztropine 0.5 mg tablet completed benztrop ine mesylate 0.5 MG Oral Tablet [place] ([facility]) lamotrigine 25 MG Oral Tablet lamotrigine 25 mg tablet lamot rigine 25 mg tablet completed lamotrigine 25 MG Oral Tablet [place] ([facility]) Clonidine Hydrochloride 0.2 MG Oral Tablet clonidine H Cl 0.2 mg tablet clonidine HCl 0.2 mg tablet completed clonidine hydrochloride 0.2 MG Oral Tablet [place] ([facility]) OneTouch Verio Flex Meter [id number] compl eted OneTouch Verio Flex Meter [place] ([facility]) Mirtazapine 15 MG Oral Tablet mirtazapine 15 mg tablet derrick zapine 15 mg tablet completed mirtazapine 15 MG Oral Tablet [place] ([facility]) 0.5 ML dulaglutide 1.5 MG/ML Auto-Inject or [Trulicity] Trulicity 0.75 mg/0.5 mL subcutaneous pen injector Trulicity 0.75 mg/0.5 mL subcutaneous pen injector completed 0.5 ML dulaglu tide 1.5 MG/ML Auto-Injector [Trulicity] [place] ([facility]) Docusate Sodium 50 MG / sennosides, RETIREMENT 8.6 MG Oral Tablet sennosides 8.6 mg- docusate sodium 50 mg tablet Take 2 tablets by oral route at bedtime. sennosides 8.6 mg-docusate sodium 50 mg tablet Take 2 tablets by oral route at bedtime. 2 completed docusate sodiu m 50 MG / sennosides, RETIREMENT 8.6 MG Oral Tablet [place] ([facility]) Clonazepam 0.5 MG Disintegrating Oral Ta blet clonazepam 0.5 mg disintegrating tablet clonazepam 0.5 mg disintegrating tablet completed clonazepam 0.5 MG Disintegrating Oral Tablet [place] ([facility]) Amitriptyline Hydrochloride 75 MG Oral Tablet amitript yline 75 mg tablet amitriptyline 75 mg tablet completed amitriptyline hydrochloride 75 MG Oral Tablet [place] ([facility]) Docusate Sodium 50 MG / sennosides, RETIREMENT 8.6 MG Oral Tablet sennosides 8.6 mg- docusate sodium 50 mg tablet Take 2 tablets by oral route at bedtime. sennosides 8.6 mg-docusate sodium 50 mg tablet Take 2 tablets by oral route at bedtime. 2 completed docusate sodiu m 50 MG / sennosides, RETIREMENT 8.6 MG Oral Tablet [place] ([facility]) buspirone hydrochloride 10 MG Oral Tablet buspirone 10 mg tablet buspirone 10 mg tablet completed buspirone hydr ochloride 10 MG Oral Tablet [place] ([facility]) sennosides, RETIREMENT 8.6 MG Oral Tablet [Senna-Time] senna 8.6 mg tablet senna 8.6 mg tablet completed sennosi azam, RETIREMENT 8.6 MG Oral Tablet [Senna-Time] [place] ([facility]) lamotrigine 25 MG Oral Tablet lamotrigine 25 mg tablet lamot rigine 25 mg tablet completed lamotrigine 25 MG Oral Tablet [place] ([facility]) lamotrigine 100 MG Oral Tablet lamotrigi ne 100 mg tablet TAKE ONE TABLET BY MOUTH ONCE DAILY lamotrigine 100 mg tablet TAKE ONE TABLET BY MOUTH ONC E DAILY completed lamotrigine 10 0 MG Oral Tablet [place] ([facility]) Propranolol Hydrochloride 20 MG Oral Tablet propranolo l 20 mg tablet propranolol 20 mg tablet completed propranolol hydrochloride 20 MG Oral Tablet [place] ([facility]) OneTouch Delica Plus Lancet 33 gauge [id number] completed OneTouch Delica Plus Lancet 33 gauge [place] ([facility]) Prazosin 1 MG Oral Capsule prazosin 1 mg capsule prazosin 1 mg capsule completed prazosin 1 MG Oral Capsul e [place] ([facility]) Simvastatin 10 MG Oral Tablet simvastati n 10 mg tablet TAKE ONE TABLET BY MOUTH EVERY DAY simvastatin 10 mg tablet TAKE ONE TABLET BY MOUTH EVERY DAY completed simvastatin 10 MG Oral Table t [place] ([facility]) sennosides 8.6 mg-docusate sodium 50 mg capsule Take 2 capsules by oral route at bedtime. [id number] 2 capsule(s) completed docusate sodium 50 MG / sennosides, RETIREMENT 8.6 MG Oral Capsule [place] ([facility]) OneTouch Verio Flex Meter [id number] compl eted OneTouch Verio Flex Meter [place] ([facility]) buspirone hydrochloride 15 MG Oral Table t buspirone 15 mg tablet TAKE ONE TABLET BY MOUTH THREE TIMES A DAY buspirone 15 mg tablet TAKE ONE TABLET B Y MOUTH THREE TIMES A DAY completed buspirone hydrochloride 15 MG Oral Tablet [place] ([facility]) Clonazepam 1 MG Oral Tablet clonazepam 1 mg tablet clonazepam 1 mg ta blet completed clonazepam 1 MG Oral Tablet [place] ([facility]) Amitriptyline Hydrochloride 75 MG Oral Tablet amitript yline 75 mg tablet amitriptyline 75 mg tablet completed amitriptyline hydrochloride 75 MG Oral Tablet [place] ([facility]) Amitriptyline Hydrochloride 75 MG Oral Tablet amitript yline 75 mg tablet amitriptyline 75 mg tablet completed amitriptyline hydrochloride 75 MG Oral Tablet [place] ([facility]) Clonazepam 0.5 MG Disintegrating Oral Ta blet clonazepam 0.5 mg disintegrating tablet clonazepam 0.5 mg disintegrating tablet completed clonazepam 0.5 MG Disintegrating Oral Tablet [place] ([facility]) Simvastatin 10 MG Oral Tablet simvastati n 10 mg tablet TAKE ONE TABLET BY MOUTH EVERY DAY simvastatin 10 mg tablet TAKE ONE TABLET BY MOUTH EVERY DAY completed simvastatin 10 MG Oral Table t [place] ([facility]) lamotrigine 25 MG Oral Tablet lamotrigine 25 mg tablet lamot rigine 25 mg tablet completed lamotrigine 25 MG Oral Tablet [place] ([facility]) 0.5 ML dulaglutide 1.5 MG/ML Auto-Inject or [Trulicity] Trulicity 0.75 mg/0.5 mL subcutaneous pen injector Trulicity 0.75 mg/0.5 mL subcutaneous pen injector completed 0.5 ML dulaglu tide 1.5 MG/ML Auto-Injector [Trulicity] [place] ([facility]) buspirone hydrochloride 10 MG Oral Tablet buspirone 10 mg tablet buspirone 10 mg tablet completed buspirone hydr ochloride 10 MG Oral Tablet [place] ([facility]) Clonidine Hydrochloride 0.2 MG Oral Tablet clonidine H Cl 0.2 mg tablet clonidine HCl 0.2 mg tablet completed clonidine hydrochloride 0.2 MG Oral Tablet [place] ([facility]) cefdinir 300 MG Oral Capsule cefdinir 300 mg capsule cefdinir 30 0 mg capsule completed cefdinir 300 M G Oral Capsule [place] ([facility]) BD Ultra-Fine Short Pen Needle 31 gauge x 5/16" USE DIRECTED ONCE DAILY [id number] completed BD Ultr a-Fine Short Pen Needle 31 gauge x 5/16" [place] ([facility]) buspirone hydrochloride 15 MG Oral Table t buspirone 15 mg tablet TAKE ONE TABLET BY MOUTH THREE TIMES A DAY buspirone 15 mg tablet TAKE ONE TABLET B Y MOUTH THREE TIMES A DAY completed buspirone hydrochloride 15 MG Oral Tablet [place] ([facility]) Mirtazapine 15 MG Oral Tablet mirtazapine 15 mg tablet derrick zapine 15 mg tablet completed mirtazapine 15 MG Oral Tablet [place] ([facility]) OneTouch Verio test strips USE DIRECTED UP TO TWO TIMES A DAY [id number] completed OneTouch Verio test strip s [place] ([facility]) cefdinir 300 MG Oral Capsule cefdinir 300 mg capsule cefdinir 30 0 mg capsule completed cefdinir 300 M G Oral Capsule [place] ([facility]) sennosides 8.6 mg-docusate sodium 50 mg capsule Take 2 capsules by oral route at bedtime. [id number] 2 capsule(s) completed docusate sodium 50 MG / sennosides, RETIREMENT 8.6 MG Oral Capsule [place] ([facility]) Docusate Sodium 100 MG Oral Capsule [DOK] DOK 100 mg capsule DOK 100 mg capsule completed docusate sodiu m 100 MG Oral Capsule [DOK] [place] ([facility]) Amitriptyline Hydrochloride 75 MG Oral Tablet amitript yline 75 mg tablet amitriptyline 75 mg tablet completed amitriptyline hydrochloride 75 MG Oral Tablet [place] ([facility]) buspirone hydrochloride 10 MG Oral Tablet buspirone 10 mg tablet buspirone 10 mg tablet completed buspirone hydr ochloride 10 MG Oral Tablet [place] ([facility]) benztropine mesylate 0.5 MG Oral Tablet benztropine 0. 5 mg tablet benztropine 0.5 mg tablet completed benztrop ine mesylate 0.5 MG Oral Tablet [place] ([facility]) Propranolol Hydrochloride 20 MG Oral Tablet propranolo l 20 mg tablet propranolol 20 mg tablet completed propranolol hydrochloride 20 MG Oral Tablet [place] ([facility]) cefdinir 300 MG Oral Capsule cefdinir 300 mg capsule cefdinir 30 0 mg capsule completed cefdinir 300 M G Oral Capsule [place] ([facility]) Simvastatin 10 MG Oral Tablet simvastati n 10 mg tablet TAKE ONE TABLET BY MOUTH EVERY DAY simvastatin 10 mg tablet TAKE ONE TABLET BY MOUTH EVERY DAY completed simvastatin 10 MG Oral Table t [place] ([facility]) Famotidine 20 MG Oral Tablet famotidine 20 mg tablet famotidine 20 mg tablet completed famotidine 20 MG Oral Tablet [place] ([facility]) Triamcinolone Acetonide 1 MG/ML Topical Cream triamcinolone acetonide 0.1 % topical cream triamcinolone acetonide 0.1 % topical cream completed triamcinolone acetonide 1 MG/ML Topical Cream [place] ([facility]) Azithromycin 250 MG Oral Tablet azithromycin 250 mg ta blet azithromycin 250 mg tablet completed azithromycin 25 0 MG Oral Tablet [facility]) benzonatate 200 MG Oral Capsule benzonatate 200 mg cap [place] benzonatate 200 mg capsule completed benzonatate 20 0 MG Oral Capsule [place] ([facility]) buspirone hydrochloride 7.5 MG Oral Tablet buspirone 7 .5 mg tablet buspirone 7.5 mg tablet completed buspirone h ydrochloride 7.5 MG Oral Tablet [place] ([facility]) BD Ultra-Fine Short Pen Needle 31 gauge x 5/16" USE ONCE DAILY [id number] completed BD Ultra-Fine Short Pen Need le 31 gauge x 5/16" [facility]) Famotidine 20 MG Oral Tablet famotidine 20 mg tablet famotidine 20 mg tablet completed famotidine 20 MG Oral Tablet [place] ([facility]) sennosides, RETIREMENT 8.6 MG Oral Tablet [Senna-Time] senna 8.6 mg tablet senna 8.6 mg tablet completed sennosi azam, RETIREMENT 8.6 MG Oral Tablet [Senna-Time] [place] ([facility]) Azithromycin 250 MG Oral Tablet azithromycin 250 mg ta blet azithromycin 250 mg tablet completed azithromycin 25 0 MG Oral Tablet [place] ([facility]) Famotidine 20 MG Oral Tablet famotidine 20 mg tablet famotidine 20 mg tablet completed famotidine 20 MG Oral Tablet [place] ([facility]) Docusate Sodium 50 MG / sennosides, RETIREMENT 8.6 MG Oral Tablet sennosides 8.6 mg- docusate sodium 50 mg tablet Take 2 tablets by oral route at bedtime. sennosides 8.6 mg-docusate sodium 50 mg tablet Take 2 tablets by oral route at bedtime. 2 completed docusate sodiu m 50 MG / sennosides, RETIREMENT 8.6 MG Oral Tablet [place] ([facility]) ziprasidone 60 MG Oral Capsule ziprasidone 60 mg capsu le ziprasidone 60 mg capsule completed ziprasidone 60 MG Oral Capsule [facility]) Ofloxacin 3 MG/ML Otic Solution ofloxaci n 0.3 % ear drops INSTILL 10 DROPS INTO AFFECTED EAR S EVERY DAY ofloxacin 0.3 % ear drops INSTILL 10 VANDANA PS INTO AFFECTED EAR S EVERY DAY completed ofloxacin 3 MG/ML Otic Solution [place] ([facility]) Amitriptyline Hydrochloride 75 MG Oral Tablet amitript yline 75 mg tablet amitriptyline 75 mg tablet completed amitriptyline hydrochloride 75 MG Oral Tablet [place] ([facility]) buspirone hydrochloride 10 MG Oral Tablet buspirone 10 mg tablet buspirone 10 mg tablet completed buspirone hydr ochloride 10 MG Oral Tablet [place] ([facility]) benzonatate 200 MG Oral Capsule benzonatate 200 mg cap [place] benzonatate 200 mg capsule completed benzonatate 20 0 MG Oral Capsule [place] ([facility]) Azithromycin 250 MG Oral Tablet azithromycin 250 mg ta blet azithromycin 250 mg tablet completed azithromycin 25 0 MG Oral Tablet [place] ([facility]) Clonazepam 0.5 MG Oral Tablet clonazepam 0.5 mg tablet TAKE ONE TABLET BY MOUTH NEEDED FOR 3 DAYS THEN ONE HALF TABLET UNTIL FINISHED MAXIMUM DAILY DOSE ONE TABLET clonazepam 0.5 mg tablet TAKE ONE TABLET BY MOUTH NEEDED FOR 3 DAYS THEN ONE HALF TABLET UNTIL FINISHED MAXIMUM DAILY DOSE ONE TABLET completed clonazepam 0.5 MG Or al Tablet [place] ([facility]) Mirtazapine 15 MG Oral Tablet mirtazapine 15 mg tablet derrick zapine 15 mg tablet completed mirtazapine 15 MG Oral Tablet [place] ([facility]) Amitriptyline Hydrochloride 50 MG Oral Tablet amitript yline 50 mg tablet amitriptyline 50 mg tablet completed amitriptyline hydrochloride 50 MG Oral Tablet [place] ([facility]) OneTouch Verio Flex Meter [id number] compl eted OneTouch Verio Flex Meter [place] ([facility]) Docusate Sodium 50 MG / sennosides, RETIREMENT 8.6 MG Oral Tablet sennosides 8.6 mg- docusate sodium 50 mg tablet Take 2 tablets by oral route at bedtime. sennosides 8.6 mg-docusate sodium 50 mg tablet Take 2 tablets by oral route at bedtime. 2 completed docusate sodiu m 50 MG / sennosides, RETIREMENT 8.6 MG Oral Tablet [place] ([facility]) cefdinir 300 MG Oral Capsule cefdinir 300 mg capsule cefdinir 30 0 mg capsule completed cefdinir 300 M G Oral Capsule [place] ([facility]) Simvastatin 10 MG Oral Tablet simvastati n 10 mg tablet TAKE ONE TABLET BY MOUTH EVERY DAY simvastatin 10 mg tablet TAKE ONE TABLET BY MOUTH EVERY DAY completed simvastatin 10 MG Oral Table t [place] ([facility]) Clonazepam 0.5 MG Disintegrating Oral Ta blet clonazepam 0.5 mg disintegrating tablet clonazepam 0.5 mg disintegrating tablet completed clonazepam 0.5 MG Disintegrating Oral Tablet [place] ([facility]) Simvastatin 10 MG Oral Tablet simvastati n 10 mg tablet TAKE ONE TABLET BY MOUTH EVERY DAY simvastatin 10 mg tablet TAKE ONE TABLET BY MOUTH EVERY DAY completed simvastatin 10 MG Oral Table t [place] ([facility]) Docusate Sodium 50 MG / sennosides, RETIREMENT 8.6 MG Oral Tablet sennosides 8.6 mg- docusate sodium 50 mg tablet Take 2 tablets by oral route at bedtime. sennosides 8.6 mg-docusate sodium 50 mg tablet Take 2 tablets by oral route at bedtime. 2 completed docusate sodiu m 50 MG / sennosides, RETIREMENT 8.6 MG Oral Tablet [place] ([facility]) Triamcinolone Acetonide 1 MG/ML Topical Cream triamcinolone acetonide 0.1 % topical cream triamcinolone acetonide 0.1 % topical cream completed triamcinolone acetonide 1 MG/ML Topical Cream [place] ([facility]) Mirtazapine 45 MG Oral Tablet mirtazapine 45 mg tablet derrick zapine 45 mg tablet completed mirtazapine 45 MG Oral Tablet [place] ([facility]) ziprasidone 60 MG Oral Capsule ziprasidone 60 mg capsu le ziprasidone 60 mg capsule completed ziprasidone 60 MG Oral Capsule [place] ([facility]) benztropine mesylate 0.5 MG Oral Tablet benztropine 0. 5 mg tablet benztropine 0.5 mg tablet completed benztrop ine mesylate 0.5 MG Oral Tablet [place] ([facility]) Docusate Sodium 50 MG / sennosides, RETIREMENT 8.6 MG Oral Tablet sennosides 8.6 mg- docusate sodium 50 mg tablet Take 2 tablets by oral route at bedtime. sennosides 8.6 mg-docusate sodium 50 mg tablet Take 2 tablets by oral route at bedtime. 2 completed docusate sodiu m 50 MG / sennosides, RETIREMENT 8.6 MG Oral Tablet [place] ([facility]) lamotrigine 25 MG Oral Tablet lamotrigine 25 mg tablet lamot rigine 25 mg tablet completed lamotrigine 25 MG Oral Tablet [place] ([facility]) Ketoconazole 20 MG/ML Medicated Shampoo ketoconazole 2 % shampoo ketoconazole 2 % shampoo completed ketoconazole 20 MG/ML Medicated Shampoo [place] ([facility]) Mirtazapine 45 MG Oral Tablet mirtazapine 45 mg tablet derrick zapine 45 mg tablet completed mirtazapine 45 MG Oral Tablet [place] ([facility]) Clonazepam 1 MG Oral Tablet clonazepam 1 mg tablet clonazepam 1 mg ta blet completed clonazepam 1 MG Oral Tablet [place] ([facility]) Clonidine Hydrochloride 0.2 MG Oral Tablet clonidine H Cl 0.2 mg tablet clonidine HCl 0.2 mg tablet completed clonidine hydrochloride 0.2 MG Oral Tablet [place] ([facility]) Docusate Sodium 50 MG / sennosides, RETIREMENT 8.6 MG Oral Tablet sennosides 8.6 mg- docusate sodium 50 mg tablet Take 2 tablets by oral route at bedtime. sennosides 8.6 mg-docusate sodium 50 mg tablet Take 2 tablets by oral route at bedtime. 2 completed docusate sodiu m 50 MG / sennosides, RETIREMENT 8.6 MG Oral Tablet [place] ([facility]) benzonatate 200 MG Oral Capsule benzonatate 200 mg cap kenya benzonatate 200 mg capsule completed benzonatate 20 0 MG Oral Capsule [place] ([facility]) Ketoconazole 20 MG/ML Medicated Shampoo ketoconazole 2 % shampoo ketoconazole 2 % shampoo completed ketoconazole 20 MG/ML Medicated Shampoo [place] ([facility]) Propranolol Hydrochloride 20 MG Oral Tablet propranolo l 20 mg tablet propranolol 20 mg tablet completed propranolol hydrochloride 20 MG Oral Tablet [place] ([facility]) Isopropyl Alcohol 0.7 ML/ML Medicated Pad Alcohol Prep Pads Alco hol Prep Pads completed isopropyl alco hol 0.7 ML/ML Medicated Pad JEFF ([facility]) sennosides, RETIREMENT 8.6 MG Oral Tablet [Senna-Time] senna 8.6 mg tablet senna 8.6 mg tablet completed sennosi azam, RETIREMENT 8.6 MG Oral Tablet [Senna-Time] JEFF ([facility]) cefdinir 300 MG Oral Capsule cefdinir 300 mg capsule cefdinir 30 0 mg capsule completed cefdinir 300 M G Oral Capsule [place] ([facility]) cefdinir 300 MG Oral Capsule cefdinir 300 mg capsule cefdinir 30 0 mg capsule completed cefdinir 300 M G Oral Capsule JEFF ([facility]) ziprasidone 60 MG Oral Capsule ziprasidone 60 mg capsu le ziprasidone 60 mg capsule completed ziprasidone 60 MG Oral Capsule JEFF ([facility]) ziprasidone 60 MG Oral Capsule ziprasidone 60 mg capsu le ziprasidone 60 mg capsule completed ziprasidone 60 MG Oral Capsule [place] ([facility]) Cephalexin 500 MG Oral Capsule cephalexin 500 mg capsu le cephalexin 500 mg capsule completed cephalexin 500 MG Oral Capsule [place] ([facility]) Clonidine Hydrochloride 0.2 MG Oral Tablet clonidine H Cl 0.2 mg tablet clonidine HCl 0.2 mg tablet completed clonidine hydrochloride 0.2 MG Oral Tablet [place] ([facility]) Docusate Sodium 100 MG Oral Capsule [DOK] DOK 100 mg capsule DOK 100 mg capsule completed docusate sodiu m 100 MG Oral Capsule [DOK] [place] ([facility]) lamotrigine 100 MG Oral Tablet lamotrigi ne 100 mg tablet TAKE ONE TABLET BY MOUTH ONCE DAILY lamotrigine 100 mg tablet TAKE ONE TABLET BY MOUTH ONC E DAILY completed lamotrigine 10 0 MG Oral Tablet [place] ([facility]) Clonazepam 0.5 MG Oral Tablet clonazepam 0.5 mg tablet TAKE ONE TABLET BY MOUTH NEEDED FOR 3 DAYS THEN ONE HALF TABLET UNTIL FINISHED MAXIMUM DAILY DOSE ONE TABLET clonazepam 0.5 mg tablet TAKE ONE TABLET BY MOUTH NEEDED FOR 3 DAYS THEN ONE HALF TABLET UNTIL FINISHED MAXIMUM DAILY DOSE ONE TABLET completed clonazepam 0.5 MG Or al Tablet [place] ([facility]) sennosides 8.6 mg-docusate sodium 50 mg capsule Take 2 capsules by oral route at bedtime. [id number] 2 capsule(s) completed docusate sodium 50 MG / sennosides, RETIREMENT 8.6 MG Oral Capsule [place] ([facility]) Trazodone Hydrochloride 50 MG Oral Table t trazodone 50 mg tablet TAKE ONE TABLET BY MOUTH EVERY DAY AT BEDTIME trazodone 50 mg tablet TAKE ONE TABLET B Y MOUTH EVERY DAY AT BEDTIME completed trazodone hydrochloride 50 MG Oral Tablet [place] ([facility]) Mirtazapine 15 MG Oral Tablet mirtazapine 15 mg tablet derrick zapine 15 mg tablet completed mirtazapine 15 MG Oral Tablet JEFF ([facility]) Amitriptyline Hydrochloride 75 MG Oral Tablet amitript yline 75 mg tablet amitriptyline 75 mg tablet completed amitriptyline hydrochloride 75 MG Oral Tablet [place] ([facility]) Clonidine Hydrochloride 0.2 MG Oral Tablet clonidine H Cl 0.2 mg tablet clonidine HCl 0.2 mg tablet completed clonidine hydrochloride 0.2 MG Oral Tablet JEFF ([facility]) OneTouch Verio Flex Meter [id number] compl eted OneTouch Verio Flex Meter [place] ([facility]) 0.5 ML dulaglutide 1.5 MG/ML Auto-Inject or [Trulicity] Trulicity 0.75 mg/0.5 mL subcutaneous pen injector Trulicity 0.75 mg/0.5 mL subcutaneous pen injector completed 0.5 ML dulaglu tide 1.5 MG/ML Auto-Injector [Trulicity] [place] ([facility]) lamotrigine 25 MG Oral Tablet lamotrigine 25 mg tablet lamot rigine 25 mg tablet completed lamotrigine 25 MG Oral Tablet [place] ([facility]) OneTouch Delica Plus Lancet 33 gauge [id number] completed OneTouch Delica Plus Lancet 33 gauge [place] ([facility]) Prazosin 1 MG Oral Capsule prazosin 1 mg capsule prazosin 1 mg capsule completed prazosin 1 MG Oral Capsul e [place] ([facility]) Triamcinolone Acetonide 1 MG/ML Topical Cream triamcinolone acetonide 0.1 % topical cream triamcinolone acetonide 0.1 % topical cream completed triamcinolone acetonide 1 MG/ML Topical Cream [place] ([facility]) Clonazepam 1 MG Oral Tablet clonazepam 1 mg tablet clonazepam 1 mg ta blet completed clonazepam 1 MG Oral Tablet [place] ([facility]) Clindamycin 150 MG Oral Capsule clindamycin HCl 150 mg capsule clindamycin HCl 150 mg capsule completed clindam ycin 150 MG Oral Capsule [place] ([facility]) Simvastatin 10 MG Oral Tablet simvastati n 10 mg tablet TAKE ONE TABLET BY MOUTH EVERY DAY simvastatin 10 mg tablet TAKE ONE TABLET BY MOUTH EVERY DAY completed simvastatin 10 MG Oral Table t JEFF ([facility]) benzonatate 200 MG Oral Capsule benzonatate 200 mg cap kenya benzonatate 200 mg capsule completed benzonatate 20 0 MG Oral Capsule [place] ([facility]) Famotidine 20 MG Oral Tablet famotidine 20 mg tablet famotidine 20 mg tablet completed famotidine 20 MG Oral Tablet JEFF ([facility]) benzonatate 200 MG Oral Capsule benzonatate 200 mg cap kenya benzonatate 200 mg capsule completed benzonatate 20 0 MG Oral Capsule [place] ([facility]) buspirone hydrochloride 10 MG Oral Tablet buspirone 10 mg tablet buspirone 10 mg tablet completed buspirone hydr ochloride 10 MG Oral Tablet [place] ([facility]) Simvastatin 10 MG Oral Tablet simvastati n 10 mg tablet TAKE ONE TABLET BY MOUTH EVERY DAY simvastatin 10 mg tablet TAKE ONE TABLET BY MOUTH EVERY DAY completed simvastatin 10 MG Oral Table t [place] ([facility]) OneTouch Verio Flex Meter [id number] compl eted OneTouch Verio Flex Meter [place] ([facility]) 0.5 ML dulaglutide 1.5 MG/ML Auto-Inject or [Trulicity] Trulicity 0.75 mg/0.5 mL subcutaneous pen injector Trulicity 0.75 mg/0.5 mL subcutaneous pen injector completed 0.5 ML dulaglu tide 1.5 MG/ML Auto-Injector [Trulicity] [place] ([facility]) Prazosin 1 MG Oral Capsule prazosin 1 mg capsule prazosin 1 mg capsule completed prazosin 1 MG Oral Capsul e [place] ([facility]) Insurance Providers Payer name Policy type / Coverage type Policy ID Covered libertarian ID Covered libertarian's relationship to talamantes Policy Talamantes Plan Information [facility] PLUS DEVEN COMMUNITY PLAN [id number] SELF [id number] Net 263 DEVEN [id number] SELF [id number] HMO BLUE [id number] SP [id number] BLUE CROSS VANESSA PLAN [id number] SP [id number] FORMERLY [facility] PLAN MCDO [id number] SP [id number] Hmo Blue Option/Medicaid Health Maintenance Organization (HMO) V [id number] Self [id number] Hmo Blue Option/Medicaid Health Maintenance Organization (HMO) V [id number] Self [id number] Hmo Blue Option/Medicaid Health Maintenance Organization (HMO) V [id number] Self [id number] [facility] Medigap Part [id number] Self [id number] Medicaid S [id number] S [id number] Managed Care BCBS O [id number] S [id number] Medicaid S [id number] S [id number] Medicaid S [id number] S [id number] [facility] Essential Plan P [id number] S [id number] Managed Care - Community Plan [facility] P [id number] S [id number] Medicaid S [id number] S [id number] Managed Care - Community Plan [facility] P [id number] S [id number] Medicaid S [id number] S [id number] Managed Care - Community Plan [facility] P [id number] S [id number] Managed Care - [facility] Community Plan P [id number] S [id number] Medicaid S [id number] S [id number] Managed Care - [facility] Community Plan P [id number] S [id number] Medicaid S [id number] S [id number] BCBS Federal O [id number] S [id number] [facility]CAID) P UNAVAILABLE [id number] S UNAVAILABLE EXCELLUS BCBS P [id number] S [id number] Self Pay O [id number] S [id number] [facility] [id number] SP [id number] [employer] COMMUNITY PLAN MCDO [id number] SP [id number] [facility]([place]CAID) O [id number] S [id number] [facility] Health Maintenance Organization (HMO) [id number] Self [id number] MEDICAID [id number] SP [id number] Managed Care - Community Plan [facility] P [id number] S [id number] [facility] Health Maintenance Organization (HMO) [id number] Self [id number] [facility] Health Maintenance Organization ([facility] [id number] Self [id number] MEDICAID [id number] SP [id number] [employer] COMMUNITY PLAN MCDO [id number] SP [id number] [facility] Comm Plan Medicaid F [id number] SELF [id number] Managed Care - Community Plan [facility] P [id number] S [id number] UNHC AMERICHOICE XIX -HMO [id number] 18 [id number] [facility]CAID) O [id number] S [id number] MEDICAID [id number] SP [id number] [facility] HMO/[facility] FAMILY NO CO PAY [id number] P [id number] SELFPAY P HMO BLUE/MEDICAID [id number] P [id number] MEDICAID [id number] SP [id number] UN COMMUNITY PLAN [facility] [id number] SP [id number] Problems, Conditions, and Diagnoses Code Display Name Description Problem Type Effective Dates Data Source(s) F17.200 Nicotine dependence, unspecified, uncomp licated Tobacco Use Disorder, Moderate Condition 07/02/2021 12:00:00 AM EDT [facility] ([facility]) 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 Condition 07/02/2021 12:00:00 AM EDT [facility] ([facility]) 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 Somatic Symptom D isorder Condition 07/02/2021 12:00:00 AM EDT [facility] ([facility]) F31.63 Bipolar disorder, current ep isode mixed, severe, without psychotic features Bipolar disord, crnt epsd mixed, severe, w/o psych features Condition 07/02/2021 12:00:00 AM EDT [facility] ([facility]) [id number] Primary erectile dysfunction Primary Erectile Dysfunct ion Problem 06/12/2021 12:00:00 AM EDT JEFF ([facility]) [id number] Primary erectile dysfunction Primary Erectile Dysfunct ion Problem 06/12/2021 12:00:00 AM EDT JEFF ([facility]) 59148092 Acute otitis externa Acute Otitis Externa Problem 05/02/2021 12:00:00 AM EDT JEFF ([facility]) 39476484 Acute otitis externa Acute Otitis Externa Problem 05/02/2021 12:00:00 AM EDT JEFF ([facility]) 29721884 Acute otitis externa Acute Otitis Externa Problem 05/02/2021 12:00:00 AM EDT JE[facility] ([facility]) 25341891 Chest pain Chest Pain Problem 03/22/2021 12:00:00 AM ED T JEFF ([facility]) [id number] Tobacco user Tobacco User Problem 03/22/2021 12:00:00 A M EDT JE[facility] ([facility]) 87442976 Chest pain Chest Pain Problem 03/22/2021 12:00:00 AM ED T JEFF ([facility]) 120552350 Tobacco user Tobacco User Problem 03/22/2021 12:00:00 A M EDT EJFF ([facility]) [id number] Chest pain Chest Pain Problem 03/22/2021 12:00:00 AM ED T JEFF ([facility]) [id number] Tobacco user Tobacco User Problem 03/22/2021 12:00:00 A M EDT JEFF ([facility]) [id number] Chest pain Chest Pain Problem 03/22/2021 12:00:00 AM ED T JEFF ([facility]) [id number] Tobacco user Tobacco User Problem 03/22/2021 12:00:00 A M EDT JEFF ([facility]) [id number] Chest pain Chest Pain Problem 03/22/2021 12:00:00 AM ED T JEFF ([facility]) [id number] Tobacco user Tobacco User Problem 03/22/2021 12:00:00 A M EDT JEFF ([facility]) [id number] Chest pain Chest Pain Problem 03/22/2021 12:00:00 AM ED T JEFF ([facility]) 567543168 Tobacco user Tobacco User Problem 03/22/2021 12:00:00 A M EDT JEFF ([facility]) F17.200 Nicotine dependence, unspecified, uncomp licated Tobacco Use Disorder, Moderate Condition 12/07/2020 12:00:00 AM EST [facility] ([facility]) 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 Condition 12/07/2020 12:00:00 AM EST [facility] ([facility]) E11.9 Type 2 diabetes mellitus Type 2 diabetes mellitus Prob tiffanie 10/07/2020 12:00:00 AM EST [facility] ([facility] L60.0 Ingrowing nail Ingrowing nail Problem 10/07/2020 12:00: 00 AM EST [facility] ([facility] L03.032 Cellulitis of left toe Cellulitis of left toe Problem 10/07/2020 12:00:00 AM EST [facility] ([facility] L03.031 Cellulitis of right toe Cellulitis of right toe Proble m 10/07/2020 12:00:00 AM EST [facility] ([facility] [id number] Bilateral earache Bilateral Earache Problem 10/03 12:00:00 AM EST JEFF ([facility]) 040308148 Bilateral earache Bilateral Earache Problem 10/03 12:00:00 AM EST JEFF ([facility]) 536375010 Bilateral earache Bilateral Earache Problem 10/03 12:00:00 AM EST JEFF ([facility]) 247793607 Bilateral earache Bilateral Earache Problem 10/03 12:00:00 AM EST JE[facility] ([facility]) [id number] Bilateral earache Bilateral Earache Problem 10/03 12:00:00 AM EST JE[facility] ([facility]) 515821630 Bilateral earache Bilateral Earache Problem 10/03 12:00:00 AM EST JEFF ([facility]) 928057778 Bilateral earache Bilateral Earache Problem 10/03 12:00:00 AM EST JEFF ([facility]) [id number] Bilateral earache Bilateral Earache Problem 10/03 12:00:00 AM EST JEFF ([facility]) 152122634 Bilateral earache Bilateral Earache Problem 10/03 12:00:00 AM EST JEFF ([facility]) 483550406 Bilateral earache Bilateral Earache Problem 10/03 12:00:00 AM EST JEFF ([facility]) [id number] Bilateral earache Bilateral Earache Problem 10/03 12:00:00 AM EST JEFF ([facility]) [id number] Bilateral earache Bilateral Earache Problem 10/03 12:00:00 AM EST JEFF ([facility]) 413062517 Bilateral earache Bilateral Earache Problem 10/03 12:00:00 AM EST JEFF ([facility]) [id number] Bilateral earache Bilateral Earache Problem 10/03 12:00:00 AM EST JE[facility] ([facility]) [id number] Paronychia of toe Paronychia of Toe Problem 09/01 12:00:00 AM EST JEFF ([facility]) [id number] Paronychia of toe Paronychia of Toe Problem 09/01 12:00:00 AM EST JEFF ([facility]) [id number] Paronychia of toe Paronychia of Toe Problem 09/01 12:00:00 AM EST JEFF ([facility]) [id number] Paronychia of toe Paronychia of Toe Problem 09/01 12:00:00 AM EST JEFF ([facility]) [id number] Paronychia of toe Paronychia of Toe Problem 09/01 12:00:00 AM EST JEFF ([facility]) [id number] Paronychia of toe Paronychia of Toe Problem 09/01 12:00:00 AM EST JEFF ([facility]) [id number] Paronychia of toe Paronychia of Toe Problem 09/01 12:00:00 AM EST JEFF ([facility]) [id number] Paronychia of toe Paronychia of Toe Problem 09/01 12:00:00 AM EST JEFF ([facility]) [id number] Paronychia of toe Paronychia of Toe Problem 09/01 12:00:00 AM EST JEFF ([facility]) [id number] Paronychia of toe Paronychia of Toe Problem 09/01 12:00:00 AM EST JEFF ([facility]) [id number] Paronychia of toe Paronychia of Toe Problem 09/01 12:00:00 AM EST JEFF ([facility]) [id number] Paronychia of toe Paronychia of Toe Problem 09/01 12:00:00 AM EST JEFF ([facility]) [id number] Paronychia of toe Paronychia of Toe Problem 09/01 12:00:00 AM EST JEFF ([facility]) [id number] Paronychia of toe Paronychia of Toe Problem 09/01 12:00:00 AM EST JEFF ([facility]) [id number] Paronychia of toe Paronychia of Toe Problem 09/01 12:00:00 AM EST JEFF ([facility]) F17.219 Nicotine dependence, cigaret mary, with unspecified nicotine-induced disorders Nicotine dependence, cigarettes, wunsp disorders Condition 08/17/2020 12:00:00 AM EST [facility] ([facility]) [id number] Type 2 diabetes mellitus without complic ation Type 2 Diabetes Mellitus without Complication Problem 08/10/2020 12:00:00 AM EDT JEFF ([facility]) [id number] Type 2 diabetes mellitus without complic ation Type 2 Diabetes Mellitus without Complication Problem 08/10/2020 12:00:00 AM EDT JEFF ([facility]) 869828335 Type 2 diabetes mellitus without complic ation Type 2 Diabetes Mellitus without Complication Problem 08/10/2020 12:00:00 AM EDT JEFF ([facility]) [id number] Type 2 diabetes mellitus without complic ation Type 2 Diabetes Mellitus without Complication Problem 08/10/2020 12:00:00 AM EDT JEFF ([facility]) [id number] Type 2 diabetes mellitus without complic ation Type 2 Diabetes Mellitus without Complication Problem 08/10/2020 12:00:00 AM EDT JEFF ([facility]) 966959392 Type 2 diabetes mellitus without complic ation Type 2 Diabetes Mellitus without Complication Problem 08/10/2020 12:00:00 AM EDT JEFF ([facility]) [id number] Type 2 diabetes mellitus without complic ation Type 2 Diabetes Mellitus without Complication Problem 08/10/2020 12:00:00 AM EDT JEFF ([facility]) [id number] Type 2 diabetes mellitus without complic ation Type 2 Diabetes Mellitus without Complication Problem 08/10/2020 12:00:00 AM EDT JEFF ([facility]) [id number] Type 2 diabetes mellitus without complic ation Type 2 Diabetes Mellitus without Complication Problem 08/10/2020 12:00:00 AM EDT JEFF ([facility]) 549015939 Type 2 diabetes mellitus without complic ation Type 2 Diabetes Mellitus without Complication Problem 08/10/2020 12:00:00 AM EDT JEFF ([facility]) [id number] Type 2 diabetes mellitus without complic ation Type 2 Diabetes Mellitus without Complication Problem 08/10/2020 12:00:00 AM EDT JEFF ([facility]) [id number] Type 2 diabetes mellitus without complic ation Type 2 Diabetes Mellitus without Complication Problem 08/10/2020 12:00:00 AM EDT JEFF ([facility]) [id number] Type 2 diabetes mellitus without complic ation Type 2 Diabetes Mellitus without Complication Problem 08/10/2020 12:00:00 AM EDT JEFF ([facility]) [id number] Type 2 diabetes mellitus without complic ation Type 2 Diabetes Mellitus without Complication Problem 08/10/2020 12:00:00 AM EDT JEFF ([facility]) 526390789 Type 2 diabetes mellitus without complic ation Type 2 Diabetes Mellitus without Complication Problem 08/10/2020 12:00:00 AM EDT JEFF ([facility]) 210432423 Type 2 diabetes mellitus without complic ation Type 2 Diabetes Mellitus without Complication Problem 08/10/2020 12:00:00 AM EDT JEFF ([facility]) [id number] Type 2 diabetes mellitus without complic ation Type 2 Diabetes Mellitus without Complication Problem 08/10/2020 12:00:00 AM EDT JEFF ([facility]) [id number] Fitting procedure Fitting Procedure Problem 07/27 05:54:54 PM EDT JEFF ([facility]) [id number] Fitting procedure Fitting Procedure Problem 07/27 05:54:54 PM EDT JEFF ([facility]) [id number] Fitting procedure Fitting Procedure Problem 07/27 05:54:54 PM EDT JEFF ([facility]) [id number] Fitting procedure Fitting Procedure Problem 07/27 05:54:54 PM EDT JEFF ([facility]) [id number] Fitting procedure Fitting Procedure Problem 07/27 05:54:54 PM EDT JEFF ([facility]) [id number] Fitting procedure Fitting Procedure Problem 07/27 05:54:54 PM EDT JEFF ([facility]) [id number] Fitting procedure Fitting Procedure Problem 07/27 05:54:54 PM EDT JEFF ([facility]) [id number] Fitting procedure Fitting Procedure Problem 07/27 05:54:54 PM EDT JEFF ([facility]) 025120736 Fitting procedure Fitting Procedure Problem 07/27 05:54:54 PM EDT JEFF ([facility]) [id number] Fitting procedure Fitting Procedure Problem 07/27 05:54:54 PM EDT JEFF ([facility]) [id number] Fitting procedure Fitting Procedure Problem 07/27 05:54:54 PM EDT JEFF ([facility]) [id number] Fitting procedure Fitting Procedure Problem 07/27 05:54:54 PM EDT JEFF ([facility]) [id number] Fitting procedure Fitting Procedure Problem 07/27 05:54:54 PM EDT JEFF ([facility]) [id number] Fitting procedure Fitting Procedure Problem 07/27 05:54:54 PM EDT JEFF ([facility]) [id number] Fitting procedure Fitting Procedure Problem 07/27 05:54:54 PM EDT JEFF ([facility]) [id number] Fitting procedure Fitting Procedure Problem 07/27 05:54:54 PM EDT JEFF ([facility]) [id number] Fitting procedure Fitting Procedure Problem 07/27 05:54:54 PM EDT JEFF ([facility]) [id number] Finding of esophagus Finding of Esophagus Problem 07/27/2020 05:54:53 PM EDT JEFF ([facility]) [id number] SNOMED CT Concept SNOMED CT Concept Problem 07/27 05:54:53 PM EDT EJFF ([facility]) 083535076 Asthma Asthma Problem 07/27/2020 05:54:53 PM ED T JEFF ([facility]) 51201979 Depressive disorder Depressive Disorder Problem 1 05:54:53 PM EDT JEFF ([facility]) 40934962 Viral hepatitis C Viral Hepatitis C Problem 07/27/2020 05:54:53 PM EDT JEFF ([facility]) [id number] Finding of esophagus Finding of Esophagus Problem 07/27/2020 05:54:53 PM EDT JEFF ([facility]) [id number] SNOMED CT Concept SNOMED CT Concept Problem 07/27 05:54:53 PM EDT JEFF ([facility]) [id number] Asthma Asthma Problem 07/27/2020 05:54:53 PM ED T JEFF ([facility]) [id number] Depressive disorder Depressive Disorder Problem 1 05:54:53 PM EDT JEFF ([facility]) [id number] Viral hepatitis C Viral Hepatitis C Problem 07/27/2020 05:54:53 PM EDT JEFF ([facility]) [id number] Finding of esophagus Finding of Esophagus Problem 07/27/2020 05:54:53 PM EDT JEFF ([facility]) [id number] SNOMED CT Concept SNOMED CT Concept Problem 07/27 05:54:53 PM EDT JEFF ([facility]) [id number] Asthma Asthma Problem 07/27/2020 05:54:53 PM ED T JEFF ([facility]) 46218798 Depressive disorder Depressive Disorder Problem 1 05:54:53 PM EDT JEFF ([facility]) [id number] Viral hepatitis C Viral Hepatitis C Problem 07/27/2020 05:54:53 PM EDT JEFF ([facility]) [id number] Finding of esophagus Finding of Esophagus Problem 07/27/2020 05:54:53 PM EDT JEFF ([facility]) [id number] SNOMED CT Concept SNOMED CT Concept Problem 07/27 05:54:53 PM EDT JEFF ([facility]) [id number] Asthma Asthma Problem 07/27/2020 05:54:53 PM ED T JEFF ([facility]) 34848100 Depressive disorder Depressive Disorder Problem 1 05:54:53 PM EDT JEFF ([facility]) 88561006 Viral hepatitis C Viral Hepatitis C Problem 07/27/2020 05:54:53 PM EDT JEFF ([facility]) [id number] Finding of esophagus Finding of Esophagus Problem 07/27/2020 05:54:53 PM EDT JEFF ([facility]) 907913007 SNOMED CT Concept SNOMED CT Concept Problem 07/27 05:54:53 PM EDT JEFF ([facility]) [id number] Asthma Asthma Problem 07/27/2020 05:54:53 PM ED T JEFF ([facility]) 73710843 Depressive disorder Depressive Disorder Problem 1 05:54:53 PM EDT JEFF ([facility]) [id number] Viral hepatitis C Viral Hepatitis C Problem 07/27/2020 05:54:53 PM EDT JEFF ([facility]) [id number] Finding of esophagus Finding of Esophagus Problem 07/27/2020 05:54:53 PM EDT JEFF ([facility]) 297729458 SNOMED CT Concept SNOMED CT Concept Problem 07/27 05:54:53 PM EDT JEFF ([facility]) [id number] Asthma Asthma Problem 07/27/2020 05:54:53 PM ED T JEFF ([facility]) 14376702 Depressive disorder Depressive Disorder Problem 1 05:54:53 PM EDT JEFF ([facility]) 88893605 Viral hepatitis C Viral Hepatitis C Problem 07/27/2020 05:54:53 PM EDT JEFF ([facility]) 108778145 Finding of esophagus Finding of Esophagus Problem 07/27/2020 05:54:53 PM EDT JEFF ([facility]) 580278841 SNOMED CT Concept SNOMED CT Concept Problem 07/27 05:54:53 PM EDT JEFF ([facility]) 976122525 Asthma Asthma Problem 07/27/2020 05:54:53 PM ED T JEFF ([facility]) 86548370 Depressive disorder Depressive Disorder Problem 1 05:54:53 PM EDT JEFF ([facility]) 18212840 Viral hepatitis C Viral Hepatitis C Problem 07/27/2020 05:54:53 PM EDT JEFF ([facility]) 966582007 Finding of esophagus Finding of Esophagus Problem 07/27/2020 05:54:53 PM EDT JEFF ([facility]) 104434436 SNOMED CT Concept SNOMED CT Concept Problem 07/27 05:54:53 PM EDT JEFF ([facility]) [id number] Asthma Asthma Problem 07/27/2020 05:54:53 PM ED T JEFF ([facility]) 80219846 Depressive disorder Depressive Disorder Problem 1 05:54:53 PM EDT JEFF ([facility]) 42789405 Viral hepatitis C Viral Hepatitis C Problem 07/27/2020 05:54:53 PM EDT JEFF ([facility]) 497159199 Finding of esophagus Finding of Esophagus Problem 07/27/2020 05:54:53 PM EDT JEFF ([facility]) 627314272 SNOMED CT Concept SNOMED CT Concept Problem 07/27 05:54:53 PM EDT JEFF ([facility]) 958203961 Asthma Asthma Problem 07/27/2020 05:54:53 PM ED T JEFF ([facility]) 92931540 Depressive disorder Depressive Disorder Problem 1 05:54:53 PM EDT JEFF ([facility]) 46705325 Viral hepatitis C Viral Hepatitis C Problem 07/27/2020 05:54:53 PM EDT JEFF ([facility]) 384736681 Finding of esophagus Finding of Esophagus Problem 07/27/2020 05:54:53 PM EDT JEFF ([facility]) 830256197 SNOMED CT Concept SNOMED CT Concept Problem 07/27 05:54:53 PM EDT JEFF ([facility]) 748624971 Asthma Asthma Problem 07/27/2020 05:54:53 PM ED T JEFF ([facility]) 58057952 Depressive disorder Depressive Disorder Problem 1 05:54:53 PM EDT JEFF ([facility]) 84081428 Viral hepatitis C Viral Hepatitis C Problem 07/27/2020 05:54:53 PM EDT JEFF ([facility]) 821075778 Finding of esophagus Finding of Esophagus Problem 07/27/2020 05:54:53 PM EDT JE[facility] ([facility]) 622185081 SNOMED CT Concept SNOMED CT Concept Problem 07/27 05:54:53 PM EDT JEFF ([facility]) 785789158 Asthma Asthma Problem 07/27/2020 05:54:53 PM ED T JEFF ([facility]) 48385880 Depressive disorder Depressive Disorder Problem 1 05:54:53 PM EDT JE[facility] ([facility]) 62054665 Viral hepatitis C Viral Hepatitis C Problem 07/27/2020 05:54:53 PM EDT JEFF ([facility]) 021122776 Finding of esophagus Finding of Esophagus Problem 07/27/2020 05:54:53 PM EDT JEFF ([facility]) 260714460 SNOMED CT Concept SNOMED CT Concept Problem 07/27 05:54:53 PM EDT JEFF ([facility]) 122709532 Asthma Asthma Problem 07/27/2020 05:54:53 PM ED T JEFF ([facility]) 51597763 Depressive disorder Depressive Disorder Problem 1 05:54:53 PM EDT JEFF ([facility]) 44070876 Viral hepatitis C Viral Hepatitis C Problem 07/27/2020 05:54:53 PM EDT JEFF ([facility]) 928831704 Finding of esophagus Finding of Esophagus Problem 07/27/2020 05:54:53 PM EDT JE[facility] ([facility]) 211820397 SNOMED CT Concept SNOMED CT Concept Problem 07/27 05:54:53 PM EDT JEFF ([facility]) 073336466 Asthma Asthma Problem 07/27/2020 05:54:53 PM ED T JEFF ([facility]) 59664372 Depressive disorder Depressive Disorder Problem 1 05:54:53 PM EDT JEFF ([facility]) 51276840 Viral hepatitis C Viral Hepatitis C Problem 07/27/2020 05:54:53 PM EDT JE[facility] ([facility]) 598662001 Finding of esophagus Finding of Esophagus Problem 07/27/2020 05:54:53 PM EDT JE[facility] ([facility]) 338356872 SNOMED CT Concept SNOMED CT Concept Problem 07/27 05:54:53 PM EDT JEFF ([facility]) 416184625 Asthma Asthma Problem 07/27/2020 05:54:53 PM ED T JEFF ([facility]) 38945935 Depressive disorder Depressive Disorder Problem 1 05:54:53 PM EDT JEFF ([facility]) 35096921 Viral hepatitis C Viral Hepatitis C Problem 07/27/2020 05:54:53 PM EDT JEFF ([facility]) 19161600 Viral hepatitis C Viral Hepatitis C Problem 07/27/2020 05:54:53 PM EDT JEFF ([facility]) 622262446 Finding of esophagus Finding of Esophagus Problem 07/27/2020 05:54:53 PM EDT JE[facility] ([facility]) 536713225 SNOMED CT Concept SNOMED CT Concept Problem 07/27 05:54:53 PM EDT JE[facility] ([facility]) 642629445 Asthma Asthma Problem 07/27/2020 05:54:53 PM ED T JEFF ([facility]) 16727429 Depressive disorder Depressive Disorder Problem 1 05:54:53 PM EDT JEFF ([facility]) 44005105 Viral hepatitis C Viral Hepatitis C Problem 07/27/2020 05:54:53 PM EDT JEFF ([facility]) 435500831 Finding of esophagus Finding of Esophagus Problem 07/27/2020 05:54:53 PM EDT JEFF ([facility]) 183641204 SNOMED CT Concept SNOMED CT Concept Problem 07/27 05:54:53 PM EDT JEFF ([facility]) 139277081 Asthma Asthma Problem 07/27/2020 05:54:53 PM ED T JEFF ([facility]) 08305211 Depressive disorder Depressive Disorder Problem 1 05:54:53 PM EDT JEFF ([facility]) 95552779 Viral hepatitis C Viral Hepatitis C Problem 07/27/2020 05:54:53 PM EDT JEFF ([facility]) 463172781 Finding of esophagus Finding of Esophagus Problem 07/27/2020 05:54:53 PM EDT JEFF ([facility]) 448510376 SNOMED CT Concept SNOMED CT Concept Problem 07/27 05:54:53 PM EDT JEFF ([facility]) 162006883 Asthma Asthma Problem 07/27/2020 05:54:53 PM ED T JEFF ([facility]) 91732147 Depressive disorder Depressive Disorder Problem 1 05:54:53 PM EDT JEFF ([facility]) 065752612 Clinical finding Clinical Finding Problem 019 12:00:00 AM EST - 03/02/2021 12:00:00 AM EDT JEFF ([facility]) [id number] Clinical finding Clinical Finding Problem 019 12:00:00 AM EST - 03/02/2021 12:00:00 AM EDT JEFF ([facility]) 187698963 Clinical finding Clinical Finding Problem 019 12:00:00 AM EST - 03/02/2021 12:00:00 AM EDT JEFF ([facility]) [id number] Clinical finding Clinical Finding Problem 019 12:00:00 AM EST - 03/02/2021 12:00:00 AM EDT JEFF ([facility]) [id number] Clinical finding Clinical Finding Problem 019 12:00:00 AM EST - 03/02/2021 12:00:00 AM EDT JEFF ([facility]) [id number] Clinical finding Clinical Finding Problem 019 12:00:00 AM EST - 03/02/2021 12:00:00 AM EDT JEFF ([facility]) [id number] Clinical finding Clinical Finding Problem 019 12:00:00 AM EST - 03/02/2021 12:00:00 AM EDT JEFF ([facility]) 10730377 Acute maxillary sinusitis Acute Maxillary Sinusitis Pr oblem 04/28/2018 12:00:00 AM EDT - 03/02/2021 12:00:00 AM EDT JEFF ([facility]) 47613956 Acute maxillary sinusitis Acute Maxillary Sinusitis Pr oblem 04/28/2018 12:00:00 AM EDT - 03/02/2021 12:00:00 AM EDT JEFF ([facility]) 65563143 Acute maxillary sinusitis Acute Maxillary Sinusitis Pr oblem 04/28/2018 12:00:00 AM EDT - 03/02/2021 12:00:00 AM EDT JEFF ([facility]) 41732418 Acute maxillary sinusitis Acute Maxillary Sinusitis Pr oblem 04/28/2018 12:00:00 AM EDT - 03/02/2021 12:00:00 AM EDT JEFF ([facility]) 79444985 Acute maxillary sinusitis Acute Maxillary Sinusitis Pr oblem 04/28/2018 12:00:00 AM EDT - 03/02/2021 12:00:00 AM EDT JEFF ([facility]) 75001553 Acute maxillary sinusitis Acute Maxillary Sinusitis Pr oblem 04/28/2018 12:00:00 AM EDT - 03/02/2021 12:00:00 AM EDT JEFF ([facility]) 29290811 Acute maxillary sinusitis Acute Maxillary Sinusitis Pr oblem 04/28/2018 12:00:00 AM EDT - 03/02/2021 12:00:00 AM EDT JEFF ([facility]) 81341255 Abdominal pain Abdominal Pain Problem 06/15/2015 12:00:00 AM EDT - 03/02/2021 12:00:00 AM EDT JEFF ([facility]) 78044748 Abdominal pain Abdominal Pain Problem 06/15/2015 12:00:00 AM EDT - 03/02/2021 12:00:00 AM EDT JEFF ([facility]) [id number] Abdominal pain Abdominal Pain Problem 06/15/2015 12:00:00 AM EDT - 03/02/2021 12:00:00 AM EDT JEFF ([facility]) 49376798 Abdominal pain Abdominal Pain Problem 06/15/2015 12:00:00 AM EDT - 03/02/2021 12:00:00 AM EDT JEFF ([facility]) 13478411 Abdominal pain Abdominal Pain Problem 06/15/2015 12:00:00 AM EDT - 03/02/2021 12:00:00 AM EDT JEFF ([facility]) 99403426 Abdominal pain Abdominal Pain Problem 06/15/2015 12:00:00 AM EDT - 03/02/2021 12:00:00 AM EDT JEFF ([facility]) 45876612 Abdominal pain Abdominal Pain Problem 06/15/2015 12:00:00 AM EDT - 03/02/2021 12:00:00 AM EDT JEFF ([facility]) [id number] Pain Pain Problem 09/14/2012 12:0 0:00 AM EST - 03/02/2021 12:00:00 AM EDT JEFF ([facility]) 970839505 Clinical finding Clinical Finding Problem 012 12:00:00 AM EST - 03/02/2021 12:00:00 AM EDT JEFF ([facility]) 235907085 Chronic constipation Chronic Constipation Problem 09/14/2012 12:00:00 AM EST - 03/02/2021 12:00:00 AM EDT JEFF ([facility]) 275020819 Clinical finding Clinical Finding Problem 012 12:00:00 AM EST - 03/02/2021 12:00:00 AM EDT JEFF ([facility]) 310165082 Chronic constipation Chronic Constipation Problem 09/14/2012 12:00:00 AM EST - 03/02/2021 12:00:00 AM EDT JEFF ([facility]) [id number] Clinical finding Clinical Finding Problem 012 12:00:00 AM EST - 03/02/2021 12:00:00 AM EDT JEFF ([facility]) 012924601 Chronic constipation Chronic Constipation Problem 09/14/2012 12:00:00 AM EST - 03/02/2021 12:00:00 AM EDT JEFF ([facility]) 040549873 Chronic constipation Chronic Constipation Problem 09/14/2012 12:00:00 AM EST - 03/02/2021 12:00:00 AM EDT JEFF ([facility]) [id number] Clinical finding Clinical Finding Problem 012 12:00:00 AM EST - 03/02/2021 12:00:00 AM EDT JEFF ([facility]) 022351158 Chronic constipation Chronic Constipation Problem 09/14/2012 12:00:00 AM EST - 03/02/2021 12:00:00 AM EDT JEFF ([facility]) [id number] Clinical finding Clinical Finding Problem 012 12:00:00 AM EST - 03/02/2021 12:00:00 AM EDT JEFF ([facility]) 461924479 Chronic constipation Chronic Constipation Problem 09/14/2012 12:00:00 AM EST - 03/02/2021 12:00:00 AM EDT JEFF ([facility]) 760523697 Clinical finding Clinical Finding Problem 012 12:00:00 AM EST - 03/02/2021 12:00:00 AM EDT JEFF ([facility]) 543045067 Chronic constipation Chronic Constipation Problem 09/14/2012 12:00:00 AM EST - 03/02/2021 12:00:00 AM EDT JEFF ([facility]) Surgeries/Procedures Procedure Description Date Indications Data Source(s) Extended Individual Psychotherapy - 45 min 07/02/2021 12:00:00 AM EDT - 07/02/2021 12:00:00 AM EDT [facility] ([facility]) Extended Individual Psychotherapy - 45 min 12:00:00 AM EDT [facility] ([facility]) TEMPMHCTelemed 30" Psychotherapy 021 12:00:00 AM EDT - 06/14/2021 12:00:00 AM EDT [facility] ([facility]) TEMPMHCTelemed 30" Psychotherapy 06/14/2021 12:00:00 A M EDT [facility] ([facility]) Brief Individual Psychotherapy - 30 min 05/31/2021 12:00:00 AM EDT - 05/31/2021 12:00:00 AM EDT [facility] ([facility]) Brief Individual Psychotherapy - 30 min 05/31/2021 12: 00:00 AM EDT [facility] ([facility]) MHCTelemed E/M Lvl 5--Est pt 05/30/2021 12:00:00 AM EDT - 05/30/2021 12:00:00 AM EDT [facility] ([facility]) MHCTelemed E/M Lvl 5--Est pt 05/30/2021 12:00:00 AM ED T [facility] ([facility]) [id number]"Psychotherapy 12:00:00 AM EDT - 05/01/2021 12:00:00 AM EDT [facility] ([facility]) [id number]"Psychotherapy 05/01/2021 12:00:00 AM EDT [facility] ([facility]) Extended Individual Psychotherapy - 45 min 03/26/2021 12:00:00 AM EDT - 03/26/2021 12:00:00 AM EDT [facility] ([facility]) Extended Individual Psychotherapy - 45 min 12:00:00 AM EDT [facility] ([facility]) INCISION & DRAINAGE ABSCESS SIMPLE/SINGLE 03/06/2021 1 2:00:00 AM EDT [facility] ([facility] OFFICE OUTPATIENT VISIT 15 MINUTES 03/06/2021 12:00:00 AM EDT [facility] ([facility] Extended Individual Psychotherapy - 45 min 02/26/2021 12:00:00 AM EDT - 02/26/2021 12:00:00 AM EDT [facility] ([facility]) Extended Individual Psychotherapy - 45 min 12:00:00 AM EDT [facility] ([facility]) Brief Individual Psychotherapy - 30 min 02/07/2021 12:00:00 AM EDT - 02/07/2021 12:00:00 AM EDT [facility] ([facility]) Brief Individual Psychotherapy - 30 min 02/07/2021 12: 00:00 AM EDT [facility] ([facility]) [id number]"Psychotherapy 12:00:00 AM EDT - 01/18/2021 12:00:00 AM EDT [facility] ([facility]) [id number]"Psychotherapy 01/18/2021 12:00:00 AM EDT [facility] ([facility]) Extended Individual Psychotherapy - 45 min 12/28/2020 12:00:00 AM EDT - 12/28/2020 12:00:00 AM EDT [facility] ([facility]) Extended Individual Psychotherapy - 45 min 12:00:00 AM EDT [facility] ([facility]) MHC Telemed E/M Lvl 3--Est pt 12/11/2020 12:00:00 AM EST - 12/11/2020 12:00:00 AM EST [facility] ([facility]) Telemed A/O 30" 12/11/2020 12:00:00 AM EST [facility] ([facility]) MHC Telemed E/M Lvl 3--Est pt 12/11/2020 12:00:[address] [facility] ([facility]) Extended Individual Psychotherapy - 45 min 12/07/2020 12:00:00 AM EST - 12/07/2020 12:00:00 AM EST [facility] ([facility]) Extended Individual Psychotherapy - 45 min 12:00:00 AM EST [facility] ([facility]) TEMPMHCTelemed 30" Psychotherapy 021 12:00:00 AM EST - 11/07/2020 12:00:00 AM EST [facility] ([facility]) TEMPMHCTelemed 30" Psychotherapy 11/07/2020 12:00:00 A M EST [facility] ([facility]) OFFICE OUTPATIENT VISIT 15 MINUTES 10/25 12:00:00 AM EST - 10/25/2020 12:00:00 AM EST [facility] ([facility]) Psychotherapy ADD ON - 30 Minutes 10/25/2020 12:00:00 AM EST [facility] ([facility]) OFFICE OUTPATIENT VISIT 15 MINUTES 10/25/2020 12:00:00 AM EST [facility] ([facility]) Extended Individual Psychotherapy - 45 min 10/20/2020 12:00:00 AM EST - 10/20/2020 12:00:00 AM EST [facility] ([facility]) Extended Individual Psychotherapy - 45 min 1 12:00:00 AM EST [facility] ([facility]) Extended Individual Psychotherapy - 45 min 09/28/2020 12:00:00 AM EST - 09/28/2020 12:00:00 AM EST [facility] ([facility]) Extended Individual Psychotherapy - 45 min 0 12:00:00 AM EST [facility] ([facility]) INCISION & DRAINAGE ABSCESS SIMPLE/SINGLE 09/25/2020 1 2:00:00 AM EST [facility] ([facility] INCISION & DRAINAGE ABSCESS SIMPLE/SINGLE 09/25/2020 1 2:00:00 AM EST [facility] ([facility] OFFICE OUTPATIENT VISIT 15 MINUTES 09/21 12:00:00 AM EST - 09/21/2020 12:00:00 AM EST [facility] ([facility]) Psychotherapy ADD ON - 30 Minutes 09/21/2020 12:00:00 AM EST [facility] ([facility]) OFFICE OUTPATIENT VISIT 15 MINUTES 09/21/2020 12:00:00 AM EST [facility] ([facility]) Extended Individual Psychotherapy - 45 min 09/11/2020 12:00:00 AM EST - 09/11/2020 12:00:00 AM EST [facility] ([facility]) Extended Individual Psychotherapy - 45 min 0 12:00:00 AM EST [facility] ([facility]) OFFICE OUTPATIENT VISIT 15 MINUTES 08/24 12:00:00 AM EST - 08/24/2020 12:00:00 AM EST [facility] ([facility]) Psychotherapy ADD ON - 30 Minutes 08/24/2020 12:00:00 AM EST [facility] ([facility]) OFFICE OUTPATIENT VISIT 15 MINUTES 08/24/2020 12:00:00 AM EST [facility] ([facility]) Brief Individual Psychotherapy - 30 min 08/17/2020 12:00:00 AM EST - 08/17/2020 12:00:00 AM EST [facility] ([facility]) Brief Individual Psychotherapy - 30 min 08/17/2020 12: 00:00 AM EST [facility] ([facility]) MHC Telemed E/M Lvl 3--Est pt 07/25/2020 12:00:00 AM EDT - 07/25/2020 12:00:00 AM EDT [facility] ([facility]) Telemed A/O 30" 07/25/2020 12:00:00 AM EDT [facility] ([facility]) MHC Telemed E/M Lvl 3--Est pt 07/25/2020 12:00:00 AM E DT [facility] ([facility]) Brief Individual Psychotherapy - 30 min 07/20/2020 12:00:00 AM EDT - 07/20/2020 12:00:00 AM EDT [facility] ([facility]) Brief Individual Psychotherapy - 30 min 07/20/2020 12: 00:00 AM EDT [facility] ([facility]) TEMPMHCTelemed 30" Psychotherapy 020 12:00:00 AM EDT - 07/06/2020 12:00:00 AM EDT [facility] ([facility]) TEMPMHCTelemed 30" Psychotherapy 07/06/2020 12:00:00 A M EDT [facility] ([facility]) Results ID Date Data Source [id number] 05/18/2021 08:31:00 PM EDT [place] ([facility]) Name Value Range Interpretation Code Description Data Becky rce(s) Supporting Document(s) lipase 195 U/L 73-393 Lipase [place] ([facility]) ID Date Data Source [id number] 05/18/2021 08:31:00 PM EDT [place] ([facility]) Name Value Range Interpretation Code Description Data Becky rce(s) Supporting Document(s) glucose, fasting 159 mg/dL 70-100 Above high normal Glucose, Fas ting JE[facility] ([facility]) glomerular filtration rate > 60.0 >60 Glomerula r Filtration Rate JE[facility] ([facility]) creatinine for GFR 0.93 mg/dL 0.70-1.30 Creatinine for GF R JE[facility] ([facility]) blood urea nitrogen 9 mg/dL 7-18 Blood Urea Nitro gen JE[facility] ([facility]) potassium serum 3.9 mEq/L 3.5-5.1 [facility] sodium level 137 mEq/L 136-145 Sodium Level [place] ([facility]) chloride level 104 mEq/L 98-107 Chloride Level [place] ([facility]) carbon dioxide level 28 mEq/L 21-32 Carbon Dioxide Level [place] ([facility]) calcium level 8.2 mg/dL 8.5-10.1 Below low normal Calcium Level AT [facility]) anion gap 5 mEq/L 8-16 Below low normal Anion Gap [place] ( [facility]) ID Date Data Source [id number] 05/18/2021 08:31:00 PM EDT [place] ([facility]) Name Value Range Interpretation Code Description Data Becky rce(s) Supporting Document(s) ALT/SGPT 36 U/L 12-78 ALT/SGPT [facility] ([facility]) AST/SGOT 19 U/L 7-37 AST/SGOT [place] ([facility]) bilirubin,total 0.4 mg/dL 0.2-1.0 Bil[facility] alkaline phosphatase 75 U/L 45-117 Alkaline Phosph atase [place] ([facility]) bilirubin,direct 0.1 mg/dL 0.0-0.2 Bilirubin,direct AT [facility]) albumin 3.6 gm/dL 3.2-5.2 Albumin [facility] ([facility]) total protein 7.0 gm/dL 6.4-8.2 Total Protein [facility] ( [facility]) albumin/globulin ratio Albumin/globu bianca Ratio [facility] ([facility]) ID Date Data Source [id number] 05/18/2021 08:31:00 PM EDT JE[facility] ([facility]) Name Value Range Interpretation Code Description Data Becky rce(s) Supporting Document(s) red blood count 5.35 10 4.30-6.10 Red Blood Count [facility] ([facility]) white blood count 6.3 10 4.0-10.0 White Blood Count [facility] ([facility]) hemoglobin 15.7 g/dL 13.5-17.5 Hemoglobin [facility] ([facility]) hematocrit 46.9 % 42.0-52.0 Hematocrit [facility] ([facility]) mean corpuscular volume 87.7 fL 80.0-96.0 Mean Corpusc ular Volume JEFF ([facility]) mean corpuscular hemoglobin 29.3 pg 27.0-33.0 Mean Cor puscular Hemoglobin JEFF ([facility]) mean corpuscular HGB conc 33.5 g/dL 32.0-36.5 Mean Corpu scular HGB Conc [place] ([facility]) red cell distribution width 13.3 % 11.5-14.5 Red Cell Distribution Width JEFF ([facility]) platelet count, automated 190 10 150-450 Platelet C ount, Automated JEFF ([facility]) neutrophils % 57.8 % 36.0-66.0 Neutrophils % JEFF ( [facility]) mono % 8.4 % 2.0-8.0 Above high normal [place] % JEFF ([facility]) lymph % 23.9 % 24.0-44.0 Below low normal Lymph % JEFF ( [facility]) eos % 6.5 % 0.0-3.0 Above high normal Eos % JEFF ([facility]) baso % 1.3 % 0.0-1.0 Above high normal Baso % JEFF ([facility]) immature granulocyte % 2.1 % 0-3.0 Immature Gran ulocyte % JEFF ([facility]) nucleated red blood cell % 0.0 % 0-0 Nucleated Red Blood Cell % JEFF ([facility]) neutrophils # 3.7 10 1.5-8.5 Neutrophils # JEFF ( [facility]) lymph # 1.5 10 1.5-5.0 Lymph # JEFF ([facility]) mono # 0.5 10 0.0-0.8 [place] # JEFF ([facility]) eos # 0.4 10 0.0-0.5 Eos # JEFF ([facility]) baso # 0.1 10 0.0-0.2 Baso # JEFF ([facility]) ID Date Data Source [id number] 05/18/2021 08:31:00 PM EDT [place] ([facility]) Name Value Range Interpretation Code Description Data Becky rce(s) Supporting Document(s) lipase 195 U/L 73-393 Lipase [place] ([facility]) ID Date Data Source [id number] 05/18/2021 08:31:00 PM EDT [facility]) Name Value Range Interpretation Code Description Data Becky rce(s) Supporting Document(s) glucose, fasting 159 mg/dL 70-100 Above high normal Glucose, Fas ting JEFF ([facility]) blood urea nitrogen 9 mg/dL 7-18 Blood Urea Nitro gen JEFF ([facility]) creatinine for GFR 0.93 mg/dL 0.70-1.30 Creatinine for GF R JEFF ([facility]) glomerular filtration rate > 60.0 >60 Glomerula r Filtration Rate JEFF ([facility]) potassium serum 3.9 mEq/L 3.5-5.1 Potassium Serum ATH NA ([facility]) sodium level 137 mEq/L 136-145 Sodium Level JEFF ([facility]) chloride level 104 mEq/L 98-107 Chloride Level JEFF ([facility]) carbon dioxide level 28 mEq/L 21-32 Carbon Dioxide Level JEFF ([facility]) calcium level 8.2 mg/dL 8.5-10.1 Below low normal Calcium Level AT [facility] ([facility]) anion gap 5 mEq/L 8-16 Below low normal Anion Gap JEFF ( [facility]) ID Date Data Source [id number] 05/18/2021 08:31:00 PM EDT JEFF ([facility]) Name Value Range Interpretation Code Description Data Becky rce(s) Supporting Document(s) AST/SGOT 19 U/L 7-37 AST/SGOT JEFF ([facility]) ALT/SGPT 36 U/L 12-78 ALT/SGPT JEFF ([facility]) bilirubin,total 0.4 mg/dL 0.2-1.0 Bilirubin,total ATHE ([facility]) alkaline phosphatase 75 U/L 45-117 Alkaline Phosph atase JEFF ([facility]) bilirubin,direct 0.1 mg/dL 0.0-0.2 Bilirubin,direct AT [facility] ([facility]) total protein 7.0 gm/dL 6.4-8.2 Total Protein JEFF ( [facility]) albumin/globulin ratio Albumin/globu bianca Ratio JEFF ([facility]) albumin 3.6 gm/dL 3.2-5.2 Albumin JEFF ([facility]) ID Date Data Source [id number] 05/18/2021 08:31:00 PM EDT JEFF ([facility]) Name Value Range Interpretation Code Description Data Becky rce(s) Supporting Document(s) white blood count 6.3 10 4.0-10.0 White Blood Count JEFF ([facility]) red blood count 5.35 10 4.30-6.10 Red Blood Count ATHE NA ([facility]) hemoglobin 15.7 g/dL 13.5-17.5 Hemoglobin JEFF ([facility]) mean corpuscular volume 87.7 fL 80.0-96.0 Mean Corpusc ular Volume JEFF ([facility]) hematocrit 46.9 % 42.0-52.0 Hematocrit JEFF ([facility]) mean corpuscular hemoglobin 29.3 pg 27.0-33.0 Mean Cor puscular Hemoglobin JEFF ([facility]) mean corpuscular HGB conc 33.5 g/dL 32.0-36.5 Mean Corpu scular HGB Conc JEFF ([facility]) red cell distribution width 13.3 % 11.5-14.5 Red Cell Distribution Width JEFF ([facility]) neutrophils % 57.8 % 36.0-66.0 Neutrophils % [place] ( [facility]) platelet count, automated 190 10 150-450 Platelet C ount, Automated JEFF ([facility]) lymph % 23.9 % 24.0-44.0 Below low normal Lymph % JEFF ( [facility]) mono % 8.4 % 2.0-8.0 Above high normal [place] % JEFF ([facility]) eos % 6.5 % 0.0-3.0 Above high normal Eos % [place] ([facility]) immature granulocyte % 2.1 % 0-3.0 Immature Gran ulocyte % [place] ([facility]) baso % 1.3 % 0.0-1.0 Above high normal Baso % JEFF ([facility]) nucleated red blood cell % 0.0 % 0-0 Nucleated Red Blood Cell % JEFF ([facility]) neutrophils # 3.7 10 1.5-8.5 Neutrophils # JEFF ( [facility]) lymph # 1.5 10 1.5-5.0 Lymph # JEFF ([facility]) mono # 0.5 10 0.0-0.8 [place] # JEFF ([facility]) baso # 0.1 10 0.0-0.2 Baso # JEFF ([facility]) eos # 0.4 10 0.0-0.5 Eos # JEFF ([facility]) ID Date Data Source [id number] 03/27/2021 10:41:00 AM EDT [facility]) Name Value Range Interpretation Code Description Data Becky rce(s) Supporting Document(s) Hemoglobin A1c/Hemoglobin.total in Blood 7.5 % Abnormal (applies to non- numeric results) Hba1C JEFF ([facility]) ID Date Data Source [id number] 03/27/2021 10:41:00 AM [facility] Name Value Range Interpretation Code Description Data Becky rce(s) Supporting Document(s) Hemoglobin A1c/Hemoglobin.total in Blood 7.5 % Abnormal (applies to non- numeric results) Hba1C [place] ([facility]) ID Date Data Source [id number] 03/27/2021 10:41:00 AM EDT [facility]) Name Value Range Interpretation Code Description Data Becky rce(s) Supporting Document(s) Hemoglobin A1c/Hemoglobin.total in Blood 7.5 % Abnormal (applies to non- numeric results) Hba1C JEFF ([facility]) ID Date Data Source [id number] 03/22/2021 12:00:00 AM EDT [facility]) Name Value Range Interpretation Code Description Data Becky rce(s) Supporting Document(s) Right Eye Incomplete - Unable to Capture Image Right Eye JEFF ([facility]) Left Eye Incomplete - Unable to Capture Image Left Eye [place] ([facility]) Ophthalmology Consult Not Ordered - Unable to Complete Exam Ophthalmology Consult [facility]) ID Date Data Source [id number] 03/22/2021 12:00:00 AM EDT [facility]) Name Value Range Interpretation Code Description Data Becky rce(s) Supporting Document(s) Right Eye Incomplete - Unable to Capture Image Right Eye JEFF ([facility]) Ophthalmology Consult Not Ordered - Unable to Complete Exam Ophthalmology Consult JEFF ([facility]) Left Eye Incomplete - Unable to Capture Image Left Eye JEFF ([facility]) ID Date Data Source [id number] 03/22/2021 12:00:00 AM EDT [facility]) Name Value Range Interpretation Code Description Data Becky rce(s) Supporting Document(s) Right Eye Incomplete - Unable to Capture Image Right Eye JEFF ([facility]) Ophthalmology Consult Not Ordered - Unable to Complete Exam Ophthalmology Consult [place] ([facility]) Left Eye Incomplete - Unable to Capture Image Left Eye [place] ([facility]) ID Date Data Source [id number] 03/22/2021 12:00:00 AM EDT [facility]) Name Value Range Interpretation Code Description Data Becky rce(s) Supporting Document(s) Left Eye Incomplete - Unable to Capture Image Left Eye JEFF ([facility]) Right Eye Incomplete - Unable to Capture Image Right Eye [place] ([facility]) Ophthalmology Consult Not Ordered - Unable to Complete Exam Ophthalmology Consult [place] ([facility]) ID Date Data Source [id number] 03/22/2021 12:00:00 AM EDT [place] ([facility]) Name Value Range Interpretation Code Description Data Becky rce(s) Supporting Document(s) Right Eye Incomplete - Unable to Capture Image Right Eye JEFF ([facility]) Left Eye Incomplete - Unable to Capture Image Left Eye JEFF ([facility]) Ophthalmology Consult Not Ordered - Unable to Complete Exam Ophthalmology Consult [place] ([facility]) ID Date Data Source [id number] 01/26/2021 03:20:00 AM EDT [facility] Name Value Range Interpretation Code Description Data Becky rce(s) Supporting Document(s) SARS-CoV-2 (COVID 19) NEGATIVE - SARS-CoV-2 (COVID19) [facility] This lab was ordered by [facility] a nd reported by [facility]. ID Date Data Source [id number] 11/15/2020 03:50:00 PM EST [facility] ([facility]) Name Value Range Interpretation Code Description Data Becky rce(s) Supporting Document(s) Hemoglobin A1c/Hemoglobin.total in Blood 7.6 [facility] ([facility]) Glucose [Mass/volume] in Serum or Plasma 128 [facility] ([facility]) ID Date Data Source [id number] 09/18/2020 09:39:00 AM EST [place] ([facility]) Name Value Range Interpretation Code Description Data Becky rce(s) Supporting Document(s) cholesterol level 211 mg/dL <200 Above high normal Cholesterol Level JEFF ([facility]) triglycerides level 677 mg/dL <150 Above high normal Triglycer ides Level [place] ([facility]) non-HDL-C 179 mg/dL Non-hdl-c JEFF ([facility]) HDL cholesterol 32 mg/dL >40 Below low normal HDL Cholestero l JEFF ([facility]) cholesterol risk ratio <5 Above high normal Choles terol Risk Ratio [place] ([facility]) ID Date Data Source [id number] 09/18/2020 09:39:00 AM EST [place] ([facility]) Name Value Range Interpretation Code Description Data Becky rce(s) Supporting Document(s) glucose, fasting 145 mg/dL 70-100 Above high normal Glucose, Fas ting JEFF ([facility]) creatinine for GFR 1.20 mg/dL 0.70-1.30 Creatinine for GF R JEFF ([facility]) blood urea nitrogen 19 mg/dL 7-18 Above high normal Blood Ure a Nitrogen JEFF ([facility]) glomerular filtration rate > 60.0 >60 Glomerula r Filtration Rate JEFF ([facility]) potassium serum 4.1 mEq/L 3.5-5.1 Potassium Serum ATHE NA ([facility]) chloride level 103 mEq/L 98-107 Chloride Level JEFF ([facility]) sodium level 137 mEq/L 136-145 Sodium Level JEFF ([facility]) anion gap 5 mEq/L 8-16 Below low normal Anion Gap JEFF ( [facility]) carbon dioxide level 29 mEq/L 21-32 Carbon Dioxide Level JEFF ([facility]) calcium level 9.0 mg/dL 8.5-10.1 Calcium Level JEFF ( [facility]) ALT/SGPT 38 U/L 12-78 ALT/SGPT JEFF ([facility]) AST/SGOT 16 U/L 7-37 AST/SGOT JEFF ([facility]) total protein 7.6 gm/dL 6.4-8.2 Total Protein JEFF ( [facility]) alkaline phosphatase 82 U/L 45-117 Alkaline Phosph atase JEFF ([facility]) bilirubin,total 0.4 mg/dL 0.2-1.0 Bilirubin,total ATHE NA ([facility]) albumin/globulin ratio Albumin/globu bianca Ratio JEFF ([facility]) albumin 4.0 gm/dL 3.2-5.2 Albumin JEFF ([facility]) ID Date Data Source [id number] 09/18/2020 09:39:00 AM EST JEFF ([facility]) Name Value Range Interpretation Code Description Data Becky rce(s) Supporting Document(s) cholesterol level 211 mg/dL <200 Above high normal Cholesterol Level JEFF ([facility]) HDL cholesterol 32 mg/dL >40 Below low normal HDL Cholestero l JEFF ([facility]) triglycerides level 677 mg/dL <150 Above high normal Triglycer ides Level JEFF ([facility]) non-HDL-C 179 mg/dL Non-hdl-c JEFF ([facility]) cholesterol risk ratio <5 Above high normal Choles terol Risk Ratio JEFF ([facility]) ID Date Data Source [id number] 09/18/2020 09:39:00 AM EST JEFF ([facility]) Name Value Range Interpretation Code Description Data Becky rce(s) Supporting Document(s) glucose, fasting 145 mg/dL 70-100 Above high normal Glucose, Fas ting JEFF ([facility]) blood urea nitrogen 19 mg/dL 7-18 Above high normal Blood Ure a Nitrogen JEFF ([facility]) creatinine for GFR 1.20 mg/dL 0.70-1.30 Creatinine for GF R JEFF ([facility]) glomerular filtration rate > 60.0 >60 Glomerula r Filtration Rate JEFF ([facility]) sodium level 137 mEq/L 136-145 Sodium Level JEFF ([facility]) potassium serum 4.1 mEq/L 3.5-5.1 Potassium Serum ATHE NA ([facility]) chloride level 103 mEq/L 98-107 Chloride Level [place] ([facility]) anion gap 5 mEq/L 8-16 Below low normal Anion Gap JEFF ( [facility]) carbon dioxide level 29 mEq/L 21-32 Carbon Dioxide Level JEFF ([facility]) calcium level 9.0 mg/dL 8.5-10.1 Calcium Level JEFF ( [facility]) AST/SGOT 16 U/L 7-37 AST/SGOT JEFF ([facility]) ALT/SGPT 38 U/L 12-78 ALT/SGPT JEFF ([facility]) alkaline phosphatase 82 U/L 45-117 Alkaline Phosph atase JEFF ([facility]) total protein 7.6 gm/dL 6.4-8.2 Total Protein JEFF ( [facility]) bilirubin,total 0.4 mg/dL 0.2-1.0 Bilirubin,total ATHE ([facility]) albumin 4.0 gm/dL 3.2-5.2 Albumin JEFF ([facility]) albumin/globulin ratio Albumin/globu bianca Ratio JEFF ([facility]) ID Date Data Source [id number] 09/18/2020 09:39:00 AM EST JEFF ([facility]) Name Value Range Interpretation Code Description Data Becky rce(s) Supporting Document(s) triglycerides level 677 mg/dL <150 Above high normal Triglycer ides Level JEFF ([facility]) cholesterol level 211 mg/dL <200 Above high normal Cholesterol Level JEFF ([facility]) non-HDL-C 179 mg/dL Non-hdl-c JEFF ([facility]) HDL cholesterol 32 mg/dL >40 Below low normal HDL Cholestero l JEFF ([facility]) cholesterol risk ratio <5 Above high normal Choles terol Risk Ratio JEFF ([facility]) ID Date Data Source [id number] 09/18/2020 09:39:00 AM EST JEFF ([facility]) Name Value Range Interpretation Code Description Data Becky rce(s) Supporting Document(s) glucose, fasting 145 mg/dL 70-100 Above high normal Glucose, Fas ting JEFF ([facility]) creatinine for GFR 1.20 mg/dL 0.70-1.30 Creatinine for GF R JEFF ([facility]) blood urea nitrogen 19 mg/dL 7-18 Above high normal Blood Ure a Nitrogen JEFF ([facility]) glomerular filtration rate > 60.0 >60 Glomerula r Filtration Rate JEFF ([facility]) potassium serum 4.1 mEq/L 3.5-5.1 Potassium Serum ATHE NA ([facility]) sodium level 137 mEq/L 136-145 Sodium Level JEFF ([facility]) carbon dioxide level 29 mEq/L 21-32 Carbon Dioxide Level JEFF ([facility]) chloride level 103 mEq/L 98-107 Chloride Level JEFF ([facility]) AST/SGOT 16 U/L 7-37 AST/SGOT JEFF ([facility]) calcium level 9.0 mg/dL 8.5-10.1 Calcium Level JEFF ( [facility]) anion gap 5 mEq/L 8-16 Below low normal Anion Gap JEFF ( [facility]) bilirubin,total 0.4 mg/dL 0.2-1.0 Bilirubin,total ATHE NA ([facility]) ALT/SGPT 38 U/L 12-78 ALT/SGPT JEFF ([facility]) alkaline phosphatase 82 U/L 45-117 Alkaline Phosph atase JEFF ([facility]) albumin/globulin ratio Albumin/globu bianca Ratio JEFF ([facility]) total protein 7.6 gm/dL 6.4-8.2 Total Protein JEFF ( [facility]) albumin 4.0 gm/dL 3.2-5.2 Albumin JEFF ([facility]) ID Date Data Source [id number] 09/18/2020 09:39:00 AM EST JEFF ([facility]) Name Value Range Interpretation Code Description Data Becky rce(s) Supporting Document(s) triglycerides level 677 mg/dL <150 Above high normal Triglycer ides Level JEFF ([facility]) cholesterol level 211 mg/dL <200 Above high normal Cholesterol Level JEFF ([facility]) cholesterol risk ratio <5 Above high normal Choles terol Risk Ratio JEFF ([facility]) HDL cholesterol 32 mg/dL >40 Below low normal HDL Cholestero l JEFF ([facility]) non-HDL-C 179 mg/dL Non-hdl-c JEFF ([facility]) ID Date Data Source [id number] 09/18/2020 09:39:00 AM EST JEFF ([facility]) Name Value Range Interpretation Code Description Data Becky rce(s) Supporting Document(s) glucose, fasting 145 mg/dL 70-100 Above high normal Glucose, Fas ting JEFF ([facility]) blood urea nitrogen 19 mg/dL 7-18 Above high normal Blood Ure a Nitrogen JEFF ([facility]) creatinine for GFR 1.20 mg/dL 0.70-1.30 Creatinine for GF R JEFF ([facility]) sodium level 137 mEq/L 136-145 Sodium Level JEFF ([facility]) glomerular filtration rate > 60.0 >60 Glomerula r Filtration Rate JEFF ([facility]) carbon dioxide level 29 mEq/L 21-32 Carbon Dioxide Level JEFF ([facility]) potassium serum 4.1 mEq/L 3.5-5.1 Potassium Serum ATHE NA ([facility]) chloride level 103 mEq/L 98-107 Chloride Level JEFF ([facility]) anion gap 5 mEq/L 8-16 Below low normal Anion Gap JEFF ( [facility]) calcium level 9.0 mg/dL 8.5-10.1 Calcium Level JEFF ( [facility]) ALT/SGPT 38 U/L 12-78 ALT/SGPT JEFF ([facility]) AST/SGOT 16 U/L 7-37 AST/SGOT JEFF ([facility]) alkaline phosphatase 82 U/L 45-117 Alkaline Phosph atase JEFF ([facility]) bilirubin,total 0.4 mg/dL 0.2-1.0 Bilirubin,total ATHE ([facility]) albumin/globulin ratio Albumin/globu bianca Ratio JEFF ([facility]) total protein 7.6 gm/dL 6.4-8.2 Total Protein JEFF ( [facility]) albumin 4.0 gm/dL 3.2-5.2 Albumin JEFF ([facility]) ID Date Data Source [id number] 09/18/2020 09:39:00 AM EST JEFF ([facility]) Name Value Range Interpretation Code Description Data Becky rce(s) Supporting Document(s) triglycerides level 677 mg/dL <150 Above high normal Triglycer ides Level JEFF ([facility]) HDL cholesterol 32 mg/dL >40 Below low normal HDL Cholestero l JEFF ([facility]) cholesterol level 211 mg/dL <200 Above high normal Cholesterol Level JEFF ([facility]) non-HDL-C 179 mg/dL Non-hdl-c JEFF ([facility]) cholesterol risk ratio <5 Above high normal Choles terol Risk Ratio JEFF ([facility]) ID Date Data Source [id number] 09/18/2020 09:39:00 AM EST JEFF ([facility]) Name Value Range Interpretation Code Description Data Becky rce(s) Supporting Document(s) glucose, fasting 145 mg/dL 70-100 Above high normal Glucose, Fas ting JEFF ([facility]) creatinine for GFR 1.20 mg/dL 0.70-1.30 Creatinine for GF R JEFF ([facility]) blood urea nitrogen 19 mg/dL 7-18 Above high normal Blood Ure a Nitrogen JEFF ([facility]) glomerular filtration rate > 60.0 >60 Glomerula r Filtration Rate JEFF ([facility]) sodium level 137 mEq/L 136-145 Sodium Level JEFF ([facility]) potassium serum 4.1 mEq/L 3.5-5.1 Potassium Serum ATHE NA ([facility]) carbon dioxide level 29 mEq/L 21-32 Carbon Dioxide Level JEFF ([facility]) anion gap 5 mEq/L 8-16 Below low normal Anion Gap JEFF ( [facility]) chloride level 103 mEq/L 98-107 Chloride Level JEFF ([facility]) ALT/SGPT 38 U/L 12-78 ALT/SGPT JEFF ([facility]) calcium level 9.0 mg/dL 8.5-10.1 Calcium Level JEFF ( [facility]) AST/SGOT 16 U/L 7-37 AST/SGOT JEFF ([facility]) total protein 7.6 gm/dL 6.4-8.2 Total Protein JEFF ( [facility]) alkaline phosphatase 82 U/L 45-117 Alkaline Phosph atase JEFF ([facility]) bilirubin,total 0.4 mg/dL 0.2-1.0 Bilirubin,total ATHE ([facility]) albumin 4.0 gm/dL 3.2-5.2 Albumin JEFF ([facility]) albumin/globulin ratio Albumin/globu bianca Ratio JEFF ([facility]) ID Date Data Source [id number] 09/18/2020 09:39:00 AM EST JEFF ([facility]) Name Value Range Interpretation Code Description Data Becky rce(s) Supporting Document(s) triglycerides level 677 mg/dL <150 Above high normal Triglycer ides Level JEFF ([facility]) cholesterol level 211 mg/dL <200 Above high normal Cholesterol Level JEFF ([facility]) HDL cholesterol 32 mg/dL >40 Below low normal HDL Cholestero l JEFF ([facility]) cholesterol risk ratio <5 Above high normal Choles terol Risk Ratio JEFF ([facility]) non-HDL-C 179 mg/dL Non-hdl-c JEFF ([facility]) ID Date Data Source [id number] 09/18/2020 09:39:00 AM EST JEFF ([facility]) Name Value Range Interpretation Code Description Data Becky rce(s) Supporting Document(s) glucose, fasting 145 mg/dL 70-100 Above high normal Glucose, Fas ting JEFF ([facility]) blood urea nitrogen 19 mg/dL 7-18 Above high normal Blood Ure a Nitrogen JEFF ([facility]) creatinine for GFR 1.20 mg/dL 0.70-1.30 Creatinine for GF R JEFF ([facility]) glomerular filtration rate > 60.0 >60 Glomerula r Filtration Rate JEFF ([facility]) sodium level 137 mEq/L 136-145 Sodium Level JEFF ([facility]) potassium serum 4.1 mEq/L 3.5-5.1 Potassium Serum ATHE ([facility]) anion gap 5 mEq/L 8-16 Below low normal Anion Gap JEFF ( [facility]) chloride level 103 mEq/L 98-107 Chloride Level JEFF ([facility]) carbon dioxide level 29 mEq/L 21-32 Carbon Dioxide Level JEFF ([facility]) AST/SGOT 16 U/L 7-37 AST/SGOT JEFF ([facility]) calcium level 9.0 mg/dL 8.5-10.1 Calcium Level JEFF ( [facility]) ALT/SGPT 38 U/L 12-78 ALT/SGPT JEFF ([facility]) alkaline phosphatase 82 U/L 45-117 Alkaline Phosph atase JEFF ([facility]) bilirubin,total 0.4 mg/dL 0.2-1.0 Bilirubin,total ATHE NA ([facility]) albumin 4.0 gm/dL 3.2-5.2 Albumin JEFF ([facility]) total protein 7.6 gm/dL 6.4-8.2 Total Protein JEFF ( [facility]) albumin/globulin ratio Albumin/globu bianca Ratio JEFF ([facility]) ID Date Data Source [id number] 09/18/2020 09:39:00 AM EST JEFF ([facility]) Name Value Range Interpretation Code Description Data Becky rce(s) Supporting Document(s) HDL cholesterol 32 mg/dL >40 Below low normal HDL Cholestero l EJFF ([facility]) triglycerides level 677 mg/dL <150 Above high normal Triglycer ides Level JEFF ([facility]) cholesterol level 211 mg/dL <200 Above high normal Cholesterol Level JEFF ([facility]) non-HDL-C 179 mg/dL Non-hdl-c JEFF ([facility]) cholesterol risk ratio <5 Above high normal Choles terol Risk Ratio JEFF ([facility]) ID Date Data Source [id number] 09/18/2020 09:39:00 AM EST JEFF ([facility]) Name Value Range Interpretation Code Description Data Becky rce(s) Supporting Document(s) glucose, fasting 145 mg/dL 70-100 Above high normal Glucose, Fas ting JEFF ([facility]) glomerular filtration rate > 60.0 >60 Glomerula r Filtration Rate JEFF ([facility]) blood urea nitrogen 19 mg/dL 7-18 Above high normal Blood Ure a Nitrogen JEFF ([facility]) creatinine for GFR 1.20 mg/dL 0.70-1.30 Creatinine for GF R JEFF ([facility]) chloride level 103 mEq/L 98-107 Chloride Level JEFF ([facility]) sodium level 137 mEq/L 136-145 Sodium Level JEFF ([facility]) potassium serum 4.1 mEq/L 3.5-5.1 Potassium Serum ATHE NA ([facility]) carbon dioxide level 29 mEq/L 21-32 Carbon Dioxide Level JEFF ([facility]) anion gap 5 mEq/L 8-16 Below low normal Anion Gap JEFF ( [facility]) calcium level 9.0 mg/dL 8.5-10.1 Calcium Level JEFF ( [facility]) alkaline phosphatase 82 U/L 45-117 Alkaline Phosph atase JEFF ([facility]) ALT/SGPT 38 U/L 12-78 ALT/SGPT JEFF ([facility]) AST/SGOT 16 U/L 7-37 AST/SGOT JEFF ([facility]) albumin 4.0 gm/dL 3.2-5.2 Albumin JEFF ([facility]) total protein 7.6 gm/dL 6.4-8.2 Total Protein JEFF ( [facility]) bilirubin,total 0.4 mg/dL 0.2-1.0 Bilirubin,total ATHE ([facility]) albumin/globulin ratio Albumin/globu bianca Ratio JEFF ([facility]) ID Date Data Source [id number] 09/18/2020 09:39:00 AM EST [facility] Name Value Range Interpretation Code Description Data Becky rce(s) Supporting Document(s) Glucose, Fasting 145 mg/dL 70-100 [facility]) Blood Urea Nitrogen 19 mg/dL 7-18 [facility] ([facility]) Creatinine For GFR 1.20 mg/dL 0.70-1.30 [facility] ([facility]) Glomerular Filtration Rate Laboratory test result [facility] ([facility]) <content>Units are mL/min/1.73 m2</content>
<content></content>
<content>Chronic Kidney Disease Staging per NKF:</content>
<content></content>
<content>Stage I & II GFR >=60 Normal to Mildly Decreased</content>
<content>Stage III GFR 30- 59 Moderately Decreased</content>
<content>Stage IV GFR 15-29 Severely Decreased</content>
<content>Stage V GFR <15 Very Little GFR Left</content>
<content>ESRD GFR <15 on TRIPE COOKER</content>
<content></content> Potassium Serum 4.1 meq/L 3.5-5.1 [facility] ([facility]) Sodium Level 137 meq/L 136-145 [facility] ([facility]) Carbon Dioxide Level 29 meq/L 21-32 [facility] ( [facility]) Chloride Level 103 meq/L 98-107 [facility] ([facility]) Anion Gap 5 meq/L 8-16 [facility] ([facility]) Alt/SGPT 38 U/L 12-78 [facility] ([facility]) Ast/Sgot 16 U/L 7-37 [facility] ([facility]) Calcium Level 9.0 mg/dL 8.5-10.1 [facility] ([facility]) Bilirubin,Total 0.4 mg/dL 0.2-1.0 [facility] ([facility]) Alkaline Phosphatase 82 U/L 45-117 [facility] ( [facility]) Total Protein 7.6 GM/DL 6.4-8.2 [facility] ([facility]) Albumin 4.0 GM/DL 3.2-5.2 [facility] ([facility]) Albumin/Globulin Ratio 1.1 [facility] ([facility]) ID Date Data Source [id number] 09/18/2020 09:39:00 AM EST [facility] ([facility]) Name Value Range Interpretation Code Description Data Becky rce(s) Supporting Document(s) Triglycerides Level 677 mg/dL [facility] ([facility]) Cholesterol Level 211 mg/dL [facility] ([facility]) HDL Cholesterol 32 mg/dL [facility] ([facility]) Cholesterol Risk Ratio 6.593 [facility] ([facility]) Non-HDL-C 179 mg/dL [facility] ([facility]) ID Date Data Source [id number] 09/18/2020 09:39:00 AM EST JEFF ([facility]) Name Value Range Interpretation Code Description Data Becky rce(s) Supporting Document(s) cholesterol level 211 mg/dL <200 Above high normal Cholesterol Level JEFF ([facility]) triglycerides level 677 mg/dL <150 Above high normal Triglycer ides Level JEFF ([facility]) HDL cholesterol 32 mg/dL >40 Below low normal HDL Cholestero l JEFF ([facility]) cholesterol risk ratio <5 Above high normal Choles terol Risk Ratio JEFF ([facility]) non-HDL-C 179 mg/dL Non-hdl-c JEFF ([facility]) ID Date Data Source [id number] 09/18/2020 09:39:00 AM EST JEFF ([facility]) Name Value Range Interpretation Code Description Data Becky rce(s) Supporting Document(s) glucose, fasting 145 mg/dL 70-100 Above high normal Glucose, Fas ting JEFF ([facility]) blood urea nitrogen 19 mg/dL 7-18 Above high normal Blood Ure a Nitrogen JEFF ([facility]) creatinine for GFR 1.20 mg/dL 0.70-1.30 Creatinine for GF R JEFF ([facility]) glomerular filtration rate > 60.0 >60 Glomerula r Filtration Rate JEFF ([facility]) sodium level 137 mEq/L 136-145 Sodium Level JEFF ([facility]) chloride level 103 mEq/L 98-107 Chloride Level JEFF ([facility]) potassium serum 4.1 mEq/L 3.5-5.1 Potassium Serum ATHE ([facility]) anion gap 5 mEq/L 8-16 Below low normal Anion Gap JEFF ( [facility]) carbon dioxide level 29 mEq/L 21-32 Carbon Dioxide Level JEFF ([facility]) calcium level 9.0 mg/dL 8.5-10.1 Calcium Level JEFF ( [facility]) AST/SGOT 16 U/L 7-37 AST/SGOT JEFF ([facility]) ALT/SGPT 38 U/L 12-78 ALT/SGPT JEFF ([facility]) bilirubin,total 0.4 mg/dL 0.2-1.0 Bilirubin,total ATHE ([facility]) alkaline phosphatase 82 U/L 45-117 Alkaline Phosph atase JEFF ([facility]) total protein 7.6 gm/dL 6.4-8.2 Total Protein JEFF ( [facility]) albumin/globulin ratio Albumin/globu bianca Ratio JEFF ([facility]) albumin 4.0 gm/dL 3.2-5.2 Albumin JEFF ([facility]) ID Date Data Source [id number] 09/18/2020 09:39:00 AM EST JEFF ([facility]) Name Value Range Interpretation Code Description Data Becky rce(s) Supporting Document(s) triglycerides level 677 mg/dL <150 Above high normal Triglycer ides Level JEFF ([facility]) cholesterol level 211 mg/dL <200 Above high normal Cholesterol Level JEFF ([facility]) HDL cholesterol 32 mg/dL >40 Below low normal HDL Cholestero l JEFF ([facility]) cholesterol risk ratio <5 Above high normal Choles terol Risk Ratio JEFF ([facility]) non-HDL-C 179 mg/dL Non-hdl-c JEFF ([facility]) ID Date Data Source [id number] 09/18/2020 09:39:00 AM EST JEFF ([facility]) Name Value Range Interpretation Code Description Data Becky rce(s) Supporting Document(s) glucose, fasting 145 mg/dL 70-100 Above high normal Glucose, Fas ting JEFF ([facility]) creatinine for GFR 1.20 mg/dL 0.70-1.30 Creatinine for GF R JEFF ([facility]) blood urea nitrogen 19 mg/dL 7-18 Above high normal Blood Ure a Nitrogen JEFF ([facility]) sodium level 137 mEq/L 136-145 Sodium Level JEFF ([facility]) glomerular filtration rate > 60.0 >60 Glomerula r Filtration Rate JEFF ([facility]) potassium serum 4.1 mEq/L 3.5-5.1 Potassium Serum ATHE NA ([facility]) anion gap 5 mEq/L 8-16 Below low normal Anion Gap JEFF ( [facility]) chloride level 103 mEq/L 98-107 Chloride Level JEFF ([facility]) carbon dioxide level 29 mEq/L 21-32 Carbon Dioxide Level JEFF ([facility]) calcium level 9.0 mg/dL 8.5-10.1 Calcium Level JEFF ( [facility]) ALT/SGPT 38 U/L 12-78 ALT/SGPT JEFF ([facility]) AST/SGOT 16 U/L 7-37 AST/SGOT JEFF ([facility]) bilirubin,total 0.4 mg/dL 0.2-1.0 Bilirubin,total ATHE ([facility]) total protein 7.6 gm/dL 6.4-8.2 Total Protein JEFF ( [facility]) alkaline phosphatase 82 U/L 45-117 Alkaline Phosph atase JEFF ([facility]) albumin 4.0 gm/dL 3.2-5.2 Albumin JEFF ([facility]) albumin/globulin ratio Albumin/globu bianca Ratio JEFF ([facility]) ID Date Data Source [id number] 09/18/2020 09:39:00 AM EST JEFF ([facility]) Name Value Range Interpretation Code Description Data Becky rce(s) Supporting Document(s) triglycerides level 677 mg/dL <150 Above high normal Triglycer ides Level JEFF ([facility]) HDL cholesterol 32 mg/dL >40 Below low normal HDL Cholestero l JEFF ([facility]) non-HDL-C 179 mg/dL Non-hdl-c JEFF ([facility]) cholesterol level 211 mg/dL <200 Above high normal Cholesterol Level JEFF ([facility]) cholesterol risk ratio <5 Above high normal Choles terol Risk Ratio JEFF ([facility]) ID Date Data Source [id number] 09/18/2020 09:39:00 AM EST JEFF ([facility]) Name Value Range Interpretation Code Description Data Becky rce(s) Supporting Document(s) glucose, fasting 145 mg/dL 70-100 Above high normal Glucose, Fas ting JEFF ([facility]) blood urea nitrogen 19 mg/dL 7-18 Above high normal Blood Ure a Nitrogen JEFF ([facility]) sodium level 137 mEq/L 136-145 Sodium Level JEFF ([facility]) glomerular filtration rate > 60.0 >60 Glomerula r Filtration Rate JEFF ([facility]) creatinine for GFR 1.20 mg/dL 0.70-1.30 Creatinine for GF R JEFF ([facility]) potassium serum 4.1 mEq/L 3.5-5.1 Potassium Serum ATHE NA ([facility]) chloride level 103 mEq/L 98-107 Chloride Level JEFF ([facility]) carbon dioxide level 29 mEq/L 21-32 Carbon Dioxide Level JEFF ([facility]) anion gap 5 mEq/L 8-16 Below low normal Anion Gap JEFF ( [facility]) calcium level 9.0 mg/dL 8.5-10.1 Calcium Level JEFF ( [facility]) ALT/SGPT 38 U/L 12-78 ALT/SGPT JEFF ([facility]) alkaline phosphatase 82 U/L 45-117 Alkaline Phosph atase JEFF ([facility]) bilirubin,total 0.4 mg/dL 0.2-1.0 Bilirubin,total ATHE ([facility]) AST/SGOT 16 U/L 7-37 AST/SGOT JEFF ([facility]) albumin 4.0 gm/dL 3.2-5.2 Albumin JEFF ([facility]) total protein 7.6 gm/dL 6.4-8.2 Total Protein JEFF ( [facility]) albumin/globulin ratio Albumin/globu bianca Ratio JEFF ([facility]) ID Date Data Source [id number] 09/18/2020 09:39:00 AM EST JEFF ([facility]) Name Value Range Interpretation Code Description Data Becky rce(s) Supporting Document(s) HDL cholesterol 32 mg/dL >40 Below low normal HDL Cholestero l JEFF ([facility]) cholesterol level 211 mg/dL <200 Above high normal Cholesterol Level JEFF ([facility]) triglycerides level 677 mg/dL <150 Above high normal Triglycer ides Level JEFF ([facility]) non-HDL-C 179 mg/dL Non-hdl-c JEFF ([facility]) cholesterol risk ratio <5 Above high normal Choles terol Risk Ratio JEFF ([facility]) ID Date Data Source [id number] 09/18/2020 09:39:00 AM EST JEFF ([facility]) Name Value Range Interpretation Code Description Data Becky rce(s) Supporting Document(s) glucose, fasting 145 mg/dL 70-100 Above high normal Glucose, Fas ting JEFF ([facility]) blood urea nitrogen 19 mg/dL 7-18 Above high normal Blood Ure a Nitrogen JEFF ([facility]) creatinine for GFR 1.20 mg/dL 0.70-1.30 Creatinine for GF R JEFF ([facility]) glomerular filtration rate > 60.0 >60 Glomerula r Filtration Rate JEFF ([facility]) sodium level 137 mEq/L 136-145 Sodium Level JEFF ([facility]) carbon dioxide level 29 mEq/L 21-32 Carbon Dioxide Level JEFF ([facility]) potassium serum 4.1 mEq/L 3.5-5.1 Potassium Serum ATHE ([facility]) chloride level 103 mEq/L 98-107 Chloride Level [place]AY[place] ([facility]) calcium level 9.0 mg/dL 8.5-10.1 Calcium Level JEFF ( [facility]) AST/SGOT 16 U/L 7-37 AST/SGOT JEFF ([facility]) anion gap 5 mEq/L 8-16 Below low normal Anion Gap JEFF ( [facility]) ALT/SGPT 38 U/L 12-78 ALT/SGPT JEFF ([facility]) alkaline phosphatase 82 U/L 45-117 Alkaline Phosph atase JEFF ([facility]) bilirubin,total 0.4 mg/dL 0.2-1.0 Bilirubin,total ATHE NA ([facility]) total protein 7.6 gm/dL 6.4-8.2 Total Protein JEFF ( [facility]) albumin/globulin ratio Albumin/globu bianca Ratio JEFF ([facility]) albumin 4.0 gm/dL 3.2-5.2 Albumin JEFF ([facility]) ID Date Data Source [id number] 09/18/2020 09:39:00 AM EST JEFF ([facility]) Name Value Range Interpretation Code Description Data Becky rce(s) Supporting Document(s) cholesterol level 211 mg/dL <200 Above high normal Cholesterol Level JEFF ([facility]) triglycerides level 677 mg/dL <150 Above high normal Triglycer ides Level JEFF ([facility]) HDL cholesterol 32 mg/dL >40 Below low normal HDL Cholestero l JEFF ([facility]) non-HDL-C 179 mg/dL Non-hdl-c JEFF ([facility]) cholesterol risk ratio <5 Above high normal Choles terol Risk Ratio JEFF ([facility]) ID Date Data Source [id number] 09/18/2020 09:39:00 AM EST JEFF ([facility]) Name Value Range Interpretation Code Description Data Becky rce(s) Supporting Document(s) blood urea nitrogen 19 mg/dL 7-18 Above high normal Blood Ure a Nitrogen JEFF ([facility]) glucose, fasting 145 mg/dL 70-100 Above high normal Glucose, Fas ting JEFF ([facility]) creatinine for GFR 1.20 mg/dL 0.70-1.30 Creatinine for GF R JEFF ([facility]) glomerular filtration rate > 60.0 >60 Glomerula r Filtration Rate JEFF ([facility]) sodium level 137 mEq/L 136-145 Sodium Level JEFF ([facility]) chloride level 103 mEq/L 98-107 Chloride Level JEFF ([facility]) potassium serum 4.1 mEq/L 3.5-5.1 Potassium Serum ATHE NA ([facility]) anion gap 5 mEq/L 8-16 Below low normal Anion Gap JEFF ( [facility]) calcium level 9.0 mg/dL 8.5-10.1 Calcium Level JEFF ( [facility]) carbon dioxide level 29 mEq/L 21-32 Carbon Dioxide Level JEFF ([facility]) AST/SGOT 16 U/L 7-37 AST/SGOT JEFF ([facility]) ALT/SGPT 38 U/L 12-78 ALT/SGPT JEFF ([facility]) alkaline phosphatase 82 U/L 45-117 Alkaline Phosph atase JEFF ([facility]) total protein 7.6 gm/dL 6.4-8.2 Total Protein JEFF ( [facility]) bilirubin,total 0.4 mg/dL 0.2-1.0 Bilirubin,total ATHE ([facility]) albumin/globulin ratio Albumin/globu bianca Ratio JEFF ([facility]) albumin 4.0 gm/dL 3.2-5.2 Albumin JEFF ([facility]) ID Date Data Source [id number] 09/18/2020 09:39:00 AM EST JEFF ([facility]) Name Value Range Interpretation Code Description Data Becky rce(s) Supporting Document(s) cholesterol level 211 mg/dL <200 Above high normal Cholesterol Level JEFF ([facility]) triglycerides level 677 mg/dL <150 Above high normal Triglycer ides Level JEFF ([facility]) cholesterol risk ratio <5 Above high normal Choles terol Risk Ratio JEFF ([facility]) non-HDL-C 179 mg/dL Non-hdl-c JEFF ([facility]) HDL cholesterol 32 mg/dL >40 Below low normal HDL Cholestero l JEFF ([facility]) ID Date Data Source [id number] 09/18/2020 09:39:00 AM EST JEFF ([facility]) Name Value Range Interpretation Code Description Data Becky rce(s) Supporting Document(s) glucose, fasting 145 mg/dL 70-100 Above high normal Glucose, Fas ting JEFF ([facility]) creatinine for GFR 1.20 mg/dL 0.70-1.30 Creatinine for GF R JEFF ([facility]) blood urea nitrogen 19 mg/dL 7-18 Above high normal Blood Ure a Nitrogen JEFF ([facility]) potassium serum 4.1 mEq/L 3.5-5.1 Potassium Serum ATHE NA ([facility]) sodium level 137 mEq/L 136-145 Sodium Level JEFF ([facility]) glomerular filtration rate > 60.0 >60 Glomerula r Filtration Rate JEFF ([facility]) carbon dioxide level 29 mEq/L 21-32 Carbon Dioxide Level JEFF ([facility]) chloride level 103 mEq/L 98-107 Chloride Level JEFF ([facility]) anion gap 5 mEq/L 8-16 Below low normal Anion Gap JEFF ( [facility]) ALT/SGPT 38 U/L 12-78 ALT/SGPT JEFF ([facility]) calcium level 9.0 mg/dL 8.5-10.1 Calcium Level JEFF ( [facility]) AST/SGOT 16 U/L 7-37 AST/SGOT JEFF ([facility]) alkaline phosphatase 82 U/L 45-117 Alkaline Phosph atase JEFF ([facility]) total protein 7.6 gm/dL 6.4-8.2 Total Protein JEFF ( [facility]) bilirubin,total 0.4 mg/dL 0.2-1.0 Bilirubin,total ATHE NA ([facility]) albumin/globulin ratio Albumin/globu bianca Ratio JEFF ([facility]) albumin 4.0 gm/dL 3.2-5.2 Albumin JEFF ([facility]) ID Date Data Source [id number] 09/18/2020 09:39:00 AM EST JEFF ([facility]) Name Value Range Interpretation Code Description Data Becky rce(s) Supporting Document(s) triglycerides level 677 mg/dL <150 Above high normal Triglycer ides Level JEFF ([facility]) cholesterol level 211 mg/dL <200 Above high normal Cholesterol Level JEFF ([facility]) HDL cholesterol 32 mg/dL >40 Below low normal HDL Cholestero l JEFF ([facility]) cholesterol risk ratio <5 Above high normal Choles terol Risk Ratio JEFF ([facility]) non-HDL-C 179 mg/dL Non-hdl-c JEFF ([facility]) ID Date Data Source [id number] 09/18/2020 09:39:00 AM EST JEFF ([facility]) Name Value Range Interpretation Code Description Data Becky rce(s) Supporting Document(s) blood urea nitrogen 19 mg/dL 7-18 Above high normal Blood Ure a Nitrogen JEFF ([facility]) glucose, fasting 145 mg/dL 70-100 Above high normal Glucose, Fas ting JEFF ([facility]) glomerular filtration rate > 60.0 >60 Glomerula r Filtration Rate JEFF ([facility]) creatinine for GFR 1.20 mg/dL 0.70-1.30 Creatinine for GF R JEFF ([facility]) sodium level 137 mEq/L 136-145 Sodium Level JEFF ([facility]) potassium serum 4.1 mEq/L 3.5-5.1 Potassium Serum ATHE ([facility]) carbon dioxide level 29 mEq/L 21-32 Carbon Dioxide Level JEFF ([facility]) anion gap 5 mEq/L 8-16 Below low normal Anion Gap JEFF ( [facility]) chloride level 103 mEq/L 98-107 Chloride Level JEFF ([facility]) calcium level 9.0 mg/dL 8.5-10.1 Calcium Level JEFF ( [facility]) AST/SGOT 16 U/L 7-37 AST/SGOT JEFF ([facility]) ALT/SGPT 38 U/L 12-78 ALT/SGPT [facility] ([facility] [facility] total protein 7.6 gm/dL 6.4-8.2 Total Protein JEFF ( [facility]) bilirubin,total 0.4 mg/dL 0.2-1.0 Bilirubin,total ATHE NA ([facility]) alkaline phosphatase 82 U/L 45-117 Alkaline Phosph atase JEFF ([facility]) albumin/globulin ratio Albumin/globu bianca Ratio JEFF ([facility]) albumin 4.0 gm/dL 3.2-5.2 Albumin JEFF ([facility]) ID Date Data Source [id number] 08/17/2020 03:43:00 PM EST MEDENT ([facility]) Name Value Range Interpretation Code Description Data Becky rce(s) Supporting Document(s) Hemoglobin A1c/Hemoglobin.total in Blood 8.8 MEDENT ([facility]) Glucose [Mass/volume] in Serum or Plasma 277 MEDENT ([facility]) ID Date Data Source [id number] 08/09/2020 02:13:00 PM EDT JEFF ([facility]) Name Value Range Interpretation Code Description Data Becky rce(s) Supporting Document(s) color, urine yellow yellow Color, Urine JEFF ([facility]) appearance, urine clear clear Appearance, Urine JEFF ([facility]) pH,urine 5.0 units 5.0-9.0 pH,urine JEFF ([facility]) protein, urine auto negative negative Protein, Urine A kso [place] ([facility]) urobilinogen, urine auto 0.2 mg/dL 0.0-2.0 Urobilinoge n, Urine Auto JEFF ([facility]) ketone, urine auto negative negative Ketone, Urine Aut o JEFF ([facility]) glucose, urine (UA) auto 3+ negative Above high normal Gluc ose, Urine (UA) Auto JEFF ([facility]) specific gravity urine auto 1.002-1.035 Specifi c [place] Urine Auto JEFF ([facility]) blood, urine blood negative negative Blood, Urine Bloo d JEFF ([facility]) nitrite, urine auto negative negative Nitrite, Urine A uto JEFF ([facility]) bilirubin, urine auto negative negative Bilirubin, Uri ne Auto JEFF ([facility]) leukocyte esterase, urine auto negative negative Leukocyte Esterase, Urine Auto JEFF ([facility]) RBC, urine auto 2 /hpf 0-3 RBC, Urine Auto ATHE NA ([facility]) bacteria, urine auto negative negative Bacteria, Urine Auto JEFF ([facility]) squamous epithelial cell ur AU 0 /hpf 0-6 Squam ous Epithelial Cell Ur AU JEFF ([facility]) hyaline cast, urine auto 0 /lpf 0-1 Hyaline Maximilian t, Urine Auto JEFF ([facility]) WBC, urine auto 0 /hpf 0-3 WBC, Urine Auto ATHE NA ([facility]) ID Date Data Source [id number] 08/09/2020 02:13:00 PM EDT [place] ([facility]) Name Value Range Interpretation Code Description Data Becky rce(s) Supporting Document(s) appearance, urine clear clear Appearance, Urine JEFF ([facility]) color, urine yellow yellow Color, Urine JEFF ([facility]) pH,urine 5.0 units 5.0-9.0 pH,urine JEFF ([facility]) protein, urine auto negative negative Protein, Urine A kso [place] ([facility]) specific gravity urine auto 1.002-1.035 Specifi c [place] Urine Auto JEFF ([facility]) glucose, urine (UA) auto 3+ negative Above high normal Gluc ose, Urine (UA) Auto JEFF ([facility]) bilirubin, urine auto negative negative Bilirubin, Uri ne Auto JEFF ([facility]) ketone, urine auto negative negative Ketone, Urine Aut o JEFF ([facility]) urobilinogen, urine auto 0.2 mg/dL 0.0-2.0 Urobilinoge n, Urine Auto JEFF ([facility]) nitrite, urine auto negative negative Nitrite, Urine A uto JEFF ([facility]) leukocyte esterase, urine auto negative negative Leukocyte Esterase, Urine Auto JEFF ([facility]) WBC, urine auto 0 /hpf 0-3 WBC, Urine Auto ATHE NA ([facility]) bacteria, urine auto negative negative Bacteria, Urine Auto JEFF ([facility]) blood, urine blood negative negative Blood, Urine Bloo d JEFF ([facility]) RBC, urine auto 2 /hpf 0-3 RBC, Urine Auto ATHE NA ([facility]) hyaline cast, urine auto 0 /lpf 0-1 Hyaline Maximilian t, Urine Auto JEFF ([facility]) squamous epithelial cell ur AU 0 /hpf 0-6 Squam ous Epithelial Cell Ur AU JEFF ([facility]) ID Date Data Source [id number] 08/09/2020 02:13:00 PM EDT JEFF ([facility]) Name Value Range Interpretation Code Description Data Becky rce(s) Supporting Document(s) appearance, urine clear clear Appearance, Urine JEFF ([facility]) pH,urine 5.0 units 5.0-9.0 pH,urine JEFF ([facility]) color, urine yellow yellow Color, Urine JEFF ([facility]) specific gravity urine auto 1.002-1.035 Specifi c [place] Urine Auto JEFF ([facility]) ketone, urine auto negative negative Ketone, Urine Aut o JEFF ([facility]) protein, urine auto negative negative Protein, Urine A uto JEFF ([facility]) glucose, urine (UA) auto 3+ negative Above high normal Gluc ose, Urine (UA) Auto JEFF ([facility]) leukocyte esterase, urine auto negative negative Leukocyte Esterase, Urine Auto JEFF ([facility]) bilirubin, urine auto negative negative Bilirubin, Uri ne Auto JEFF ([facility]) nitrite, urine auto negative negative Nitrite, Urine A uto JEFF ([facility]) urobilinogen, urine auto 0.2 mg/dL 0.0-2.0 Urobilinoge n, Urine Auto JEFF ([facility]) blood, urine blood negative negative Blood, Urine Bloo d JEFF ([facility]) WBC, urine auto 0 /hpf 0-3 WBC, Urine Auto ATHE NA ([facility]) bacteria, urine auto negative negative Bacteria, Urine Auto JEFF ([facility]) RBC, urine auto 2 /hpf 0-3 RBC, Urine Auto ATHE NA ([facility]) squamous epithelial cell ur AU 0 /hpf 0-6 Squam ous Epithelial Cell Ur AU JEFF ([facility]) hyaline cast, urine auto 0 /lpf 0-1 Hyaline Maximilian t, Urine Auto JEFF ([facility]) ID Date Data Source [id number] 08/09/2020 02:13:00 PM EDT JEFF ([facility]) Name Value Range Interpretation Code Description Data Becky rce(s) Supporting Document(s) appearance, urine clear clear Appearance, Urine JEFF ([facility]) color, urine yellow yellow Color, Urine JEFF ([facility]) glucose, urine (UA) auto 3+ negative Above high normal Gluc ose, Urine (UA) Auto JEFF ([facility]) specific gravity urine auto 1.002-1.035 Specifi c [place] Urine Auto JEFF ([facility]) protein, urine auto negative negative Protein, Urine A uto JEFF ([facility]) pH,urine 5.0 units 5.0-9.0 pH,urine JEFF ([facility]) ketone, urine auto negative negative Ketone, Urine Aut o JEFF ([facility]) urobilinogen, urine auto 0.2 mg/dL 0.0-2.0 Urobilinoge n, Urine Auto JEFF ([facility]) bilirubin, urine auto negative negative Bilirubin, Uri ne Auto JEFF ([facility]) nitrite, urine auto negative negative Nitrite, Urine A uto JEFF ([facility]) blood, urine blood negative negative Blood, Urine Bloo d JEFF ([facility]) leukocyte esterase, urine auto negative negative Leukocyte Esterase, Urine Auto JEFF ([facility]) bacteria, urine auto negative negative Bacteria, Urine Auto JEFF ([facility]) RBC, urine auto 2 /hpf 0-3 RBC, Urine Auto ATHE NA ([facility]) squamous epithelial cell ur AU 0 /hpf 0-6 Squam ous Epithelial Cell Ur AU JEFF ([facility]) WBC, urine auto 0 /hpf 0-3 WBC, Urine Auto ATHE NA ([facility]) hyaline cast, urine auto 0 /lpf 0-1 Hyaline Maximilian t, Urine Auto JEFF ([facility]) ID Date Data Source [id number] 08/09/2020 02:13:00 PM EDT JEFF ([facility]) Name Value Range Interpretation Code Description Data Becky rce(s) Supporting Document(s) pH,urine 5.0 units 5.0-9.0 pH,urine JEFF ([facility]) specific gravity urine auto 1.002-1.035 Specifi c [place] Urine Auto JEFF ([facility]) appearance, urine clear clear Appearance, Urine JEFF ([facility]) color, urine yellow yellow Color, [facility] protein, urine auto negative negative Protein, Urine A uto JEFF ([facility]) ketone, urine auto negative negative Ketone, Urine Aut o JEFF ([facility]) urobilinogen, urine auto 0.2 mg/dL 0.0-2.0 Urobilinoge n, Urine Auto JEFF ([facility]) glucose, urine (UA) auto 3+ negative Above high normal Gluc ose, Urine (UA) Auto JEFF ([facility]) blood, urine blood negative negative Blood, Urine Bloo d JEFF ([facility]) nitrite, urine auto negative negative Nitrite, Urine A uto JEFF ([facility]) bilirubin, urine auto negative negative Bilirubin, Uri ne Auto JEFF ([facility]) WBC, urine auto 0 /hpf 0-3 WBC, Urine Auto ATHE NA ([facility]) leukocyte esterase, urine auto negative negative Leukocyte Esterase, Urine Auto JEFF ([facility]) RBC, urine auto 2 /hpf 0-3 RBC, Urine Auto ATHE NA ([facility]) hyaline cast, urine auto 0 /lpf 0-1 Hyaline Maximilian t, Urine Auto JEFF ([facility]) bacteria, urine auto negative negative Bacteria, Urine Auto JEFF ([facility]) squamous epithelial cell ur AU 0 /hpf 0-6 Squam ous Epithelial Cell Ur AU JEFF ([facility]) ID Date Data Source [id number] 08/09/2020 02:13:00 PM EDT JEFF ([facility]) Name Value Range Interpretation Code Description Data Becky rce(s) Supporting Document(s) appearance, urine clear clear Appearance, Urine JEFF ([facility]) specific gravity urine auto 1.002-1.035 Specifi c [place] Urine Auto JEFF ([facility]) pH,urine 5.0 units 5.0-9.0 pH,urine JEFF ([facility]) color, urine yellow yellow Color, Urine JEFF ([facility]) protein, urine auto negative negative Protein, Urine A uto JEFF ([facility]) urobilinogen, urine auto 0.2 mg/dL 0.0-2.0 Urobilinoge n, Urine Auto JEFF ([facility]) glucose, urine (UA) auto 3+ negative Above high normal Gluc ose, Urine (UA) Auto JEFF ([facility]) ketone, urine auto negative negative Ketone, Urine Aut o JEFF ([facility]) blood, urine blood negative negative Blood, Urine Bloo d JEFF ([facility]) nitrite, urine auto negative negative Nitrite, Urine A uto JEFF ([facility]) leukocyte esterase, urine auto negative negative Leukocyte Esterase, Urine Auto JEFF ([facility]) bilirubin, urine auto negative negative Bilirubin, Uri ne Auto JEFF ([facility]) squamous epithelial cell ur AU 0 /hpf 0-6 Squam ous Epithelial Cell Ur AU JEFF ([facility]) bacteria, urine auto negative negative Bacteria, Urine Auto JEFF ([facility]) WBC, urine auto 0 /hpf 0-3 WBC, Urine Auto ATHE NA ([facility]) hyaline cast, urine auto 0 /lpf 0-1 Hyaline Maximilian t, Urine Auto JEFF ([facility]) RBC, urine auto 2 /hpf 0-3 RBC, Urine Auto ATHE NA ([facility]) ID Date Data Source [id number] 08/09/2020 02:13:00 PM EDT JEFF ([facility]) Name Value Range Interpretation Code Description Data Becky rce(s) Supporting Document(s) color, urine yellow yellow Color, Urine JEFF ([facility]) appearance, urine clear clear Appearance, Urine JEFF ([facility]) protein, urine auto negative negative Protein, Urine A uto JEFF ([facility]) pH,urine 5.0 units 5.0-9.0 pH,urine JEFF ([facility]) glucose, urine (UA) auto 3+ negative Above high normal Gluc ose, Urine (UA) Auto JEFF ([facility]) specific gravity urine auto 1.002-1.035 Specifi c [place] Urine Auto JEFF ([facility]) bilirubin, urine auto negative negative Bilirubin, Uri ne Auto JEFF ([facility]) leukocyte esterase, urine auto negative negative Leukocyte Esterase, Urine Auto JEFF ([facility]) ketone, urine auto negative negative Ketone, Urine Aut o JEFF ([facility]) nitrite, urine auto negative negative Nitrite, Urine A uto JEFF ([facility]) urobilinogen, urine auto 0.2 mg/dL 0.0-2.0 Urobilinoge n, Urine Auto JEFF ([facility]) bacteria, urine auto negative negative Bacteria, Urine Auto JEFF ([facility]) blood, urine blood negative negative Blood, Urine Bloo d JEFF ([facility]) squamous epithelial cell ur AU 0 /hpf 0-6 Squam ous Epithelial Cell Ur AU JEFF ([facility]) RBC, urine auto 2 /hpf 0-3 RBC, Urine Auto ATHE NA ([facility]) WBC, urine auto 0 /hpf 0-3 WBC, Urine Auto ATHE NA ([facility]) hyaline cast, urine auto 0 /lpf 0-1 Hyaline Maximilian t, Urine Auto JEFF ([facility]) ID Date Data Source [id number] 08/09/2020 02:13:00 PM EDT [place] ([facility]) Name Value Range Interpretation Code Description Data Becky rce(s) Supporting Document(s) pH,urine 5.0 units 5.0-9.0 pH,urine JEFF ([facility]) specific gravity urine auto 1.002-1.035 Specifi c [place] Urine Auto JEFF ([facility]) color, urine yellow yellow Color, Urine JEFF ([facility]) appearance, urine clear clear Appearance, Urine JEFF ([facility]) urobilinogen, urine auto 0.2 mg/dL 0.0-2.0 Urobilinoge n, Urine Auto JEFF ([facility]) glucose, urine (UA) auto 3+ negative Above high normal Gluc ose, Urine (UA) Auto JEFF ([facility]) ketone, urine auto negative negative Ketone, Urine Aut o JEFF ([facility]) protein, urine auto negative negative Protein, Urine A uto JEFF ([facility]) bilirubin, urine auto negative negative Bilirubin, Uri ne Auto JEFF ([facility]) WBC, urine auto 0 /hpf 0-3 WBC, Urine Auto ATHE NA ([facility]) leukocyte esterase, urine auto negative negative Leukocyte Esterase, Urine Auto JEFF ([facility]) nitrite, urine auto negative negative Nitrite, Urine A uto JEFF ([facility]) blood, urine blood negative negative Blood, Urine Bloo d JEFF ([facility]) squamous epithelial cell ur AU 0 /hpf 0-6 Squam ous Epithelial Cell Ur AU JEFF ([facility]) bacteria, urine auto negative negative Bacteria, Urine Auto JEFF ([facility]) RBC, urine auto 2 /hpf 0-3 RBC, Urine Auto ATHE NA ([facility]) hyaline cast, urine auto 0 /lpf 0-1 Hyaline Maximilian t, Urine Auto JEFF ([facility]) ID Date Data Source [id number] 08/09/2020 02:13:00 PM EDT JEFF ([facility]) Name Value Range Interpretation Code Description Data Becky rce(s) Supporting Document(s) pH,urine 5.0 units 5.0-9.0 pH,urine JEFF ([facility]) appearance, urine clear clear Appearance, Urine JEFF ([facility]) color, urine yellow yellow Color, Urine JEFF (No [facility]) specific gravity urine auto 1.002-1.035 Specifi c [place] Urine Auto JEFF ([facility]) protein, urine auto negative negative Protein, Urine A uto JEFF ([facility]) urobilinogen, urine auto 0.2 mg/dL 0.0-2.0 Urobilinoge n, Urine Auto JEFF ([facility]) glucose, urine (UA) auto 3+ negative Above high normal Gluc ose, Urine (UA) Auto JEFF ([facility]) ketone, urine auto negative negative Ketone, Urine Aut o JEFF ([facility]) WBC, urine auto 0 /hpf 0-3 WBC, Urine Auto ATHE NA ([facility]) blood, urine blood negative negative Blood, Urine Bloo d JEFF ([facility]) leukocyte esterase, urine auto negative negative Leukocyte Esterase, Urine Auto JEFF ([facility]) bilirubin, urine auto negative negative Bilirubin, Uri ne Auto JEFF ([facility]) nitrite, urine auto negative negative Nitrite, Urine A uto JEFF ([facility]) RBC, urine auto 2 /hpf 0-3 RBC, Urine Auto ATHE NA ([facility]) bacteria, urine auto negative negative Bacteria, Urine Auto JEFF ([facility]) hyaline cast, urine auto 0 /lpf 0-1 Hyaline Maximilian t, Urine Auto JEFF ([facility]) squamous epithelial cell ur AU 0 /hpf 0-6 Squam ous Epithelial Cell Ur AU JEFF ([facility]) ID Date Data Source [id number] 08/09/2020 02:13:00 PM EDT JEFF ([facility]) Name Value Range Interpretation Code Description Data Becky rce(s) Supporting Document(s) color, urine yellow yellow Color, Urine JEFF ([facility]) appearance, urine clear clear Appearance, Urine JEFF ([facility]) pH,urine 5.0 units 5.0-9.0 pH,urine JEFF ([facility]) protein, urine auto negative negative Protein, Urine A uto JEFF ([facility]) specific gravity urine auto 1.002-1.035 Specifi c [place] Urine Auto JEFF ([facility]) ketone, urine auto negative negative Ketone, Urine Aut o JEFF ([facility]) glucose, urine (UA) auto 3+ negative Above high normal Gluc ose, Urine (UA) Auto JEFF ([facility]) urobilinogen, urine auto 0.2 mg/dL 0.0-2.0 Urobilinoge n, Urine Auto JEFF ([facility]) leukocyte esterase, urine auto negative negative Leukocyte Esterase, Urine Auto JEFF ([facility]) nitrite, urine auto negative negative Nitrite, Urine A uto JEFF ([facility]) blood, urine blood negative negative Blood, Urine Bloo d JEFF ([facility]) bilirubin, urine auto negative negative Bilirubin, Uri ne Auto JEFF ([facility]) WBC, urine auto 0 /hpf 0-3 WBC, Urine Auto ATHE NA ([facility]) RBC, urine auto 2 /hpf 0-3 RBC, Urine Auto ATHE NA ([facility]) hyaline cast, urine auto 0 /lpf 0-1 Hyaline Maximilian t, Urine Auto JEFF ([facility]) squamous epithelial cell ur AU 0 /hpf 0-6 Squam ous Epithelial Cell Ur AU JEFF ([facility]) bacteria, urine auto negative negative Bacteria, Urine Auto JEFF ([facility]) ID Date Data Source [id number] 08/09/2020 02:13:00 PM EDT JEFF ([facility]) Name Value Range Interpretation Code Description Data Becky rce(s) Supporting Document(s) specific gravity urine auto 1.002-1.035 Specifi c [place] Urine Auto JEFF ([facility]) pH,urine 5.0 units 5.0-9.0 pH,urine JEFF ([facility]) appearance, urine clear clear Appearance, Urine JEFF ([facility]) color, urine yellow yellow Color, Urine JEFF ([facility]) bilirubin, urine auto negative negative Bilirubin, Uri ne Auto JEFF ([facility]) ketone, urine auto negative negative Ketone, Urine Aut o JEFF ([facility]) protein, urine auto negative negative Protein, Urine A uto JEFF ([facility]) glucose, urine (UA) auto 3+ negative Above high normal Gluc ose, Urine (UA) Auto JEFF ([facility]) urobilinogen, urine auto 0.2 mg/dL 0.0-2.0 Urobilinoge n, Urine Auto JEFF ([facility]) leukocyte esterase, urine auto negative negative Leukocyte Esterase, Urine Auto JEFF ([facility]) WBC, urine auto 0 /hpf 0-3 WBC, Urine Auto ATHE NA ([facility]) nitrite, urine auto negative negative Nitrite, Urine A uto JEFF ([facility]) blood, urine blood negative negative Blood, Urine Bloo d JEFF ([facility]) squamous epithelial cell ur AU 0 /hpf 0-6 Squam ous Epithelial Cell Ur AU JEFF ([facility]) RBC, urine auto 2 /hpf 0-3 RBC, Urine Auto ATHE NA ([facility]) hyaline cast, urine auto 0 /lpf 0-1 Hyaline Maximilian t, Urine Auto JEFF ([facility]) bacteria, urine auto negative negative Bacteria, Urine Auto JEFF ([facility]) ID Date Data Source [id number] 08/09/2020 02:13:00 PM EDT JEFF ([facility]) Name Value Range Interpretation Code Description Data Becky rce(s) Supporting Document(s) color, urine yellow yellow Color, Urine JEFF ([facility]) specific gravity urine auto 1.002-1.035 Specifi c [place] Urine Auto JEFF ([facility]) appearance, urine clear clear Appearance, Urine JEFF ([facility]) pH,urine 5.0 units 5.0-9.0 pH,urine JEFF ([facility]) protein, urine auto negative negative Protein, Urine A uto JEFF ([facility]) ketone, urine auto negative negative Ketone, Urine Aut o JEFF ([facility]) glucose, urine (UA) auto 3+ negative Above high normal Gluc ose, Urine (UA) Auto JEFF ([facility]) urobilinogen, urine auto 0.2 mg/dL 0.0-2.0 Urobilinoge n, Urine Auto JEFF ([facility]) bilirubin, urine auto negative negative Bilirubin, Uri ne Auto JEFF ([facility]) RBC, urine auto 2 /hpf 0-3 RBC, Urine Auto ATHE NA ([facility]) WBC, urine auto 0 /hpf 0-3 WBC, Urine Auto ATHE NA ([facility]) leukocyte esterase, urine auto negative negative Leukocyte Esterase, Urine Auto JEFF ([facility]) blood, urine blood negative negative Blood, Urine Bloo d JEFF ([facility]) nitrite, urine auto negative negative Nitrite, Urine A uto JEFF ([facility]) hyaline cast, urine auto 0 /lpf 0-1 Hyaline Maximilian t, Urine Auto JEFF ([facility]) bacteria, urine auto negative negative Bacteria, Urine Auto JEFF ([facility]) squamous epithelial cell ur AU 0 /hpf 0-6 Squam ous Epithelial Cell Ur AU JEFF ([facility]) ID Date Data Source [id number] 08/09/2020 02:13:00 PM EDT JEFF ([facility]) Name Value Range Interpretation Code Description Data Becky rce(s) Supporting Document(s) pH,urine 5.0 units 5.0-9.0 pH,urine JEFF ([facility]) appearance, urine clear clear Appearance, Urine JEFF ([facility]) color, urine yellow yellow Color, Urine JEFF (No [facility]) specific gravity urine auto 1.002-1.035 Specifi c [place] Urine Auto JEFF ([facility]) glucose, urine (UA) auto 3+ negative Above high normal Gluc ose, Urine (UA) Auto JEFF ([facility]) protein, urine auto negative negative Protein, Urine A uto JEFF ([facility]) ketone, urine auto negative negative Ketone, Urine Aut o JEFF ([facility]) urobilinogen, urine auto 0.2 mg/dL 0.0-2.0 Urobilinoge n, Urine Auto JEFF ([facility]) blood, urine blood negative negative Blood, Urine Bloo d JEFF ([facility]) leukocyte esterase, urine auto negative negative Leukocyte Esterase, Urine Auto JEFF ([facility]) bilirubin, urine auto negative negative Bilirubin, Uri ne Auto JEFF ([facility]) nitrite, urine auto negative negative Nitrite, Urine A uto JEFF ([facility]) WBC, urine auto 0 /hpf 0-3 WBC, Urine Auto ATHE NA ([facility]) hyaline cast, urine auto 0 /lpf 0-1 Hyaline Maximilian t, Urine Auto JEFF ([facility]) squamous epithelial cell ur AU 0 /hpf 0-6 Squam ous Epithelial Cell Ur AU JEFF ([facility]) RBC, urine auto 2 /hpf 0-3 RBC, Urine Auto ATHE NA ([facility]) bacteria, urine auto negative negative Bacteria, Urine Auto JEFF ([facility]) ID Date Data Source [id number] 08/09/2020 02:13:00 PM EDT JEFF ([facility]) Name Value Range Interpretation Code Description Data Becky rce(s) Supporting Document(s) appearance, urine clear clear Appearance, Urine JEFF ([facility]) color, urine yellow yellow Color, Urine JEFF (No [facility]) specific gravity urine auto 1.002-1.035 Specifi c [place] Urine Auto JEFF ([facility]) glucose, urine (UA) auto 3+ negative Above high normal Gluc ose, Urine (UA) Auto JEFF ([facility]) protein, urine auto negative negative Protein, Urine A uto JEFF ([facility]) pH,urine 5.0 units 5.0-9.0 pH,urine JEFF ([facility]) nitrite, urine auto negative negative Nitrite, Urine A uto JEFF ([facility]) ketone, urine auto negative negative Ketone, Urine Aut o JEFF ([facility]) urobilinogen, urine auto 0.2 mg/dL 0.0-2.0 Urobilinoge n, Urine Auto JEFF ([facility]) leukocyte esterase, urine auto negative negative Leukocyte Esterase, Urine Auto JEFF ([facility]) bilirubin, urine auto negative negative Bilirubin, Uri ne Auto JEFF ([facility]) RBC, urine auto 2 /hpf 0-3 RBC, Urine Auto ATHE NA ([facility]) blood, urine blood negative negative Blood, Urine Bloo d JEFF ([facility]) bacteria, urine auto negative negative Bacteria, Urine Auto JEFF ([facility]) WBC, urine auto 0 /hpf 0-3 WBC, Urine Auto ATHE NA ([facility]) squamous epithelial cell ur AU 0 /hpf 0-6 Squam ous Epithelial Cell Ur AU JEFF ([facility]) hyaline cast, urine auto 0 /lpf 0-1 Hyaline Maximilian t, Urine Auto JEFF ([facility]) ID Date Data Source [id number] 08/09/2020 02:13:00 PM EDT JEFF ([facility]) Name Value Range Interpretation Code Description Data Becky rce(s) Supporting Document(s) appearance, urine clear clear Appearance, Urine JEFF ([facility]) color, urine yellow yellow Color, Urine JEFF (No [facility]) protein, urine auto negative negative Protein, Urine A uto JEFF ([facility]) pH,urine 5.0 units 5.0-9.0 pH,urine JEFF ([facility]) specific gravity urine auto 1.002-1.035 Specifi c [place] Urine Auto JEFF ([facility]) glucose, urine (UA) auto 3+ negative Above high normal Gluc ose, Urine (UA) Auto JEFF ([facility]) urobilinogen, urine auto 0.2 mg/dL 0.0-2.0 Urobilinoge n, Urine Auto JEFF ([facility]) ketone, urine auto negative negative Ketone, Urine Aut o JEFF ([facility]) bilirubin, urine auto negative negative Bilirubin, Uri ne Auto JEFF ([facility]) nitrite, urine auto negative negative Nitrite, Urine A uto JEFF ([facility]) blood, urine blood negative negative Blood, Urine Bloo d JEFF ([facility]) WBC, urine auto 0 /hpf 0-3 WBC, Urine Auto ATHE NA ([facility]) leukocyte esterase, urine auto negative negative Leukocyte Esterase, Urine Auto JEFF ([facility]) RBC, urine auto 2 /hpf 0-3 RBC, Urine Auto ATHE NA ([facility]) hyaline cast, urine auto 0 /lpf 0-1 Hyaline Maximilian t, Urine Auto JEFF ([facility]) squamous epithelial cell ur AU 0 /hpf 0-6 Squam ous Epithelial Cell Ur AU JEFF ([facility]) bacteria, urine auto negative negative Bacteria, Urine Auto JEFF ([facility]) ID Date Data Source [id number] 08/09/2020 02:13:00 PM EDT JEFF ([facility]) Name Value Range Interpretation Code Description Data Becky rce(s) Supporting Document(s) appearance, urine clear clear Appearance, Urine JEFF ([facility]) pH,urine 5.0 units 5.0-9.0 pH,urine JEFF ([facility]) specific gravity urine auto 1.002-1.035 Specifi c [place] Urine Auto JEFF ([facility]) color, urine yellow yellow Color, [facility] urobilinogen, urine auto 0.2 mg/dL 0.0-2.0 Urobilinoge n, Urine Auto JEFF ([facility]) glucose, urine (UA) auto 3+ negative Above high normal Gluc ose, Urine (UA) Auto JEFF ([facility]) ketone, urine auto negative negative Ketone, Urine Aut o JEFF ([facility]) protein, urine auto negative negative Protein, Urine A uto JEFF ([facility]) blood, urine blood negative negative Blood, Urine Bloo d JEFF ([facility]) bilirubin, urine auto negative negative Bilirubin, Uri ne Auto JEFF ([facility]) leukocyte esterase, urine auto negative negative Leukocyte Esterase, Urine Auto JEFF ([facility]) nitrite, urine auto negative negative Nitrite, Urine A uto JEFF ([facility]) bacteria, urine auto negative negative Bacteria, Urine Auto JEFF ([facility]) hyaline cast, urine auto 0 /lpf 0-1 Hyaline Maximilian t, Urine Auto JEFF ([facility]) squamous epithelial cell ur AU 0 /hpf 0-6 Squam ous Epithelial Cell Ur AU JEFF ([facility]) WBC, urine auto 0 /hpf 0-3 WBC, Urine Auto ATHE NA ([facility]) RBC, urine auto 2 /hpf 0-3 RBC, Urine Auto ATHE NA ([facility]) ID Date Data Source [id number] 08/09/2020 02:13:00 PM EDT JEFF ([facility]) Name Value Range Interpretation Code Description Data Becky rce(s) Supporting Document(s) appearance, urine clear clear Appearance, Urine JEFF ([facility]) color, urine yellow yellow Color, Urine JEFF (No [facility]) pH,urine 5.0 units 5.0-9.0 pH,urine JEFF ([facility]) protein, urine auto negative negative Protein, Urine A uto JEFF ([facility]) ketone, urine auto negative negative Ketone, Urine Aut o JEFF ([facility]) specific gravity urine auto 1.002-1.035 Specifi c [place] Urine Auto JEFF ([facility]) glucose, urine (UA) auto 3+ negative Above high normal Gluc ose, Urine (UA) Auto JEFF ([facility]) blood, urine blood negative negative Blood, Urine Bloo d JEFF ([facility]) nitrite, urine auto negative negative Nitrite, Urine A uto JEFF ([facility]) bilirubin, urine auto negative negative Bilirubin, Uri ne Auto JEFF ([facility]) urobilinogen, urine auto 0.2 mg/dL 0.0-2.0 Urobilinoge n, Urine Auto JEFF ([facility]) leukocyte esterase, urine auto negative negative Leukocyte Esterase, Urine Auto JEFF ([facility]) bacteria, urine auto negative negative Bacteria, Urine Auto JEFF ([facility]) WBC, urine auto 0 /hpf 0-3 WBC, Urine Auto ATHE NA ([facility]) RBC, urine auto 2 /hpf 0-3 RBC, Urine Auto ATHE NA ([facility]) squamous epithelial cell ur AU 0 /hpf 0-6 Squam ous Epithelial Cell Ur AU JEFF ([facility]) hyaline cast, urine auto 0 /lpf 0-1 Hyaline Maximilian t, Urine Auto JEFF ([facility]) ID Date Data Source [id number] 08/09/2020 12:40:00 PM EDT [place] ([facility]) Name Value Range Interpretation Code Description Data Becky rce(s) Supporting Document(s) Hemoglobin A1c/Hemoglobin.total in Blood 8.6 % Hemoglobin a1C [place] ([facility]) estimated average glucose 200 mg/dL 60-110 Above high norm al Estimated Average Glucose [place] ([facility]) ID Date Data Source [id number] 08/09/2020 12:40:00 PM EDT [place] ([facility]) Name Value Range Interpretation Code Description Data Becky rce(s) Supporting Document(s) acetone/ketone 1.22 mg/dL <2.81 Acetone/ketone [place] ([facility]) ID Date Data Source [id number] 08/09/2020 12:40:00 PM EDT [place] ([facility]) Name Value Range Interpretation Code Description Data Becky rce(s) Supporting Document(s) blood urea nitrogen 16 mg/dL 7-18 Blood Urea Nitro gen JEFF ([facility]) glucose, fasting 210 mg/dL 70-100 Above high normal Glucose, Fas ting JEFF ([facility]) sodium level 135 mEq/L 136-145 Below low normal Sodium Level ATHE ([facility]) glomerular filtration rate > 60.0 >60 Glomerula r Filtration Rate JEFF ([facility]) creatinine for GFR 1.03 mg/dL 0.70-1.30 Creatinine for GF R JEFF ([facility]) chloride level 101 mEq/L 98-107 Chloride Level JEFF ([facility]) potassium serum 4.0 mEq/L 3.5-5.1 Potassium Serum ATHE NA ([facility]) carbon dioxide level 28 mEq/L 21-32 Carbon Dioxide Level JEFF ([facility]) anion gap 6 mEq/L 8-16 Below low normal Anion Gap JEFF ( [facility]) calcium level 9.7 mg/dL 8.5-10.1 Calcium Level JEFF ( [facility]) ID Date Data Source [id number] 08/09/2020 12:40:00 PM EDT JEFF ([facility]) Name Value Range Interpretation Code Description Data Becky rce(s) Supporting Document(s) AST/SGOT 24 U/L 7-37 AST/SGOT JEFF ([facility]) alkaline phosphatase 101 U/L 45-117 Alkaline Phosph atase JEFF ([facility]) ALT/SGPT 39 U/L 12-78 ALT/SGPT JEFF ([facility]) bilirubin,total 0.4 mg/dL 0.2-1.0 Bilirubin,total ATHE ([facility]) total protein 7.6 gm/dL 6.4-8.2 Total Protein JEFF ( [facility]) bilirubin,direct 0.1 mg/dL 0.0-0.2 Bilirubin,direct AT [place] ([facility]) albumin/globulin ratio Albumin/globu bianca Ratio JEFF ([facility]) albumin 3.9 gm/dL 3.2-5.2 Albumin JEFF ([facility]) ID Date Data Source [id number] 08/09/2020 12:40:00 PM EDT JEFF ([facility]) Name Value Range Interpretation Code Description Data Becky rce(s) Supporting Document(s) red blood count 5.23 10 4.30-6.10 Red Blood Count ATHE NA ([facility]) white blood count 7.4 10 4.0-10.0 White Blood Count JEFF ([facility]) hemoglobin 15.5 g/dL 13.5-17.5 Hemoglobin JEFF ([facility]) hematocrit 46.0 % 42.0-52.0 Hematocrit JEFF ([facility]) mean corpuscular hemoglobin 29.6 pg 27.0-33.0 Mean Cor puscular Hemoglobin JEFF ([facility]) mean corpuscular HGB conc 33.7 g/dL 32.0-36.5 Mean Corpu scular HGB Conc JEFF ([facility]) mean corpuscular volume 88.0 fL 80.0-96.0 Mean Corpusc ular Volume JEFF ([facility]) red cell distribution width 12.5 % 11.5-14.5 Red Cell Distribution Width JEFF ([facility]) neutrophils % 60.8 % 36.0-66.0 Neutrophils % [place] ( [facility]) platelet count, automated 186 10 150-450 Platelet C ount, Automated JEFF ([facility]) lymph % 23.0 % 24.0-44.0 Below low normal Lymph % JEFF ( [facility]) mono % 7.6 % 0.0-5.0 Above high normal [place] % [place] ([facility]) eos % 5.8 % 0.0-3.0 Above high normal Eos % JEFF ([facility]) neutrophils # 4.5 10 1.5-8.5 Neutrophils # [place] ( [facility]) baso % 1.0 % 0.0-1.0 Baso % JEFF ([facility]) immature granulocyte % 1.8 % 0-3.0 Immature Gran ulocyte % JEFF ([facility]) nucleated red blood cell % 0.0 % 0-0 Nucleated Red Blood Cell % JEFF ([facility]) lymph # 1.7 10 1.5-5.0 Lymph # JEFF ([facility]) eos # 0.4 10 0.0-0.5 Eos # JEFF ([facility]) mono # 0.6 10 0.0-0.8 [place] # JEFF ([facility]) baso # 0.1 10 0.0-0.2 Baso # JEFF ([facility]) ID Date Data Source [id number] 08/09/2020 12:40:00 PM EDT JEFF ([facility]) Name Value Range Interpretation Code Description Data Becky rce(s) Supporting Document(s) venous pH 7.320 units 7.330-7.430 Below low normal Venous pH JEFF ([facility]) venous partial pressure O2 62.5 mmHg 30.0-50.0 Above high nor mal Venous Partial Pressure O2 JEFF ([facility]) venous total CO2 22.8 mEq/L 24.0-28.0 Below low normal Venous Total CO2 [place] ([facility]) venous partial pressure CO2 42.6 mmHg 38.0-50.0 Venous P artial Pressure CO2 JEFF ([facility]) venous base excess -2.0-2.0 Below low normal Venous Base Excess JEFF ([facility]) venous HCO3 21.5 mEq/L 23.0-27.0 Below low normal Venous HCO3 JEFF ([facility]) venous standard HCO3 20.7 mEq/L Venous Standard HCO3 JEFF ([facility]) venous O2 saturation 91.2 % 60.0-80.0 Above high normal Venous O 2 Saturation JEFF ([facility]) ID Date Data Source [id number] 08/09/2020 12:40:00 PM EDT JEFF ([facility]) Name Value Range Interpretation Code Description Data Becky rce(s) Supporting Document(s) estimated average glucose 200 mg/dL 60-110 Above high norm al Estimated Average Glucose JEFF ([facility]) Hemoglobin A1c/Hemoglobin.total in Blood 8.6 % Hemoglobin a1C JEFF ([facility]) ID Date Data Source [id number] 08/09/2020 12:40:00 PM EDT JEFF ([facility]) Name Value Range Interpretation Code Description Data Becky rce(s) Supporting Document(s) acetone/ketone 1.22 mg/dL <2.81 Acetone/ketone JEFF ([facility]) ID Date Data Source [id number] 08/09/2020 12:40:00 PM EDT JEFF ([facility]) Name Value Range Interpretation Code Description Data Becky rce(s) Supporting Document(s) creatinine for GFR 1.03 mg/dL 0.70-1.30 Creatinine for GF R JEFF ([facility]) blood urea nitrogen 16 mg/dL 7-18 Blood Urea Nitro gen JEFF ([facility]) glucose, fasting 210 mg/dL 70-100 Above high normal Glucose, Fas ting JEFF ([facility]) sodium level 135 mEq/L 136-145 Below low normal Sodium Level ATHE ([facility]) potassium serum 4.0 mEq/L 3.5-5.1 Potassium Serum ATHE ([facility]) glomerular filtration rate > 60.0 >60 Glomerula r Filtration Rate JEFF ([facility]) chloride level 101 mEq/L 98-107 Chloride Level [place] ([facility]) anion gap 6 mEq/L 8-16 Below low normal Anion Gap JEFF ( [facility]) carbon dioxide level 28 mEq/L 21-32 Carbon Dioxide Level JEFF ([facility]) calcium level 9.7 mg/dL 8.5-10.1 Calcium Level [place] ( [facility]) ID Date Data Source [id number] 08/09/2020 12:40:00 PM EDT [place] ([facility]) Name Value Range Interpretation Code Description Data Becky rce(s) Supporting Document(s) AST/SGOT 24 U/L 7-37 AST/SGOT JEFF ([facility]) ALT/SGPT 39 U/L 12-78 ALT/SGPT [place] ([facility]) bilirubin,total 0.4 mg/dL 0.2-1.0 Bilirubin,total ATHE ([facility]) alkaline phosphatase 101 U/L 45-117 Alkaline Phosph atase JEFF ([facility]) bilirubin,direct 0.1 mg/dL 0.0-0.2 Bilirubin,direct AT [place] ([facility]) total protein 7.6 gm/dL 6.4-8.2 Total Protein JEFF ( [facility]) albumin/globulin ratio Albumin/globu bianca Ratio JEFF ([facility]) albumin 3.9 gm/dL 3.2-5.2 Albumin JEFF ([facility]) ID Date Data Source [id number] 08/09/2020 12:40:00 PM EDT [place] ([facility]) Name Value Range Interpretation Code Description Data Becky rce(s) Supporting Document(s) red blood count 5.23 10 4.30-6.10 Red Blood Count ATHE ([facility]) white blood count 7.4 10 4.0-10.0 White Blood Count JEFF ([facility]) hemoglobin 15.5 g/dL 13.5-17.5 Hemoglobin JEFF ([facility]) hematocrit 46.0 % 42.0-52.0 Hematocrit JEFF ([facility]) mean corpuscular hemoglobin 29.6 pg 27.0-33.0 Mean Cor puscular Hemoglobin JEFF ([facility]) mean corpuscular volume 88.0 fL 80.0-96.0 Mean Corpusc ular Volume JEFF ([facility]) mean corpuscular HGB conc 33.7 g/dL 32.0-36.5 Mean Corpu scular HGB Conc JEFF ([facility]) red cell distribution width 12.5 % 11.5-14.5 Red Cell Distribution Width JEFF ([facility]) platelet count, automated 186 10 150-450 [facility] lymph % 23.0 % 24.0-44.0 Below low normal Lymph % JEFF ( [facility]) neutrophils % 60.8 % 36.0-66.0 Neutrophils % JEFF ( [facility]) mono % 7.6 % 0.0-5.0 Above high normal [place] % JEFF ([facility]) eos % 5.8 % 0.0-3.0 Above high normal [place] % JEFF ([facility]) immature granulocyte % 1.8 % 0-3.0 Immature Gran ulocyte % JEFF ([facility]) baso % 1.0 % 0.0-1.0 Baso % JEFF ([facility]) nucleated red blood cell % 0.0 % 0-0 Nucleated Red Blood Cell % JEFF ([facility]) neutrophils # 4.5 10 1.5-8.5 Neutrophils # JEFF ( [facility]) lymph # 1.7 10 1.5-5.0 Lymph # JEFF ([facility]) mono # 0.6 10 0.0-0.8 [place] # JEFF ([facility]) baso # 0.1 10 0.0-0.2 Baso # JEFF ([facility]) eos # 0.4 10 0.0-0.5 Eos # JEFF ([facility]) ID Date Data Source [id number] 08/09/2020 12:40:00 PM EDT [place] ([facility]) Name Value Range Interpretation Code Description Data Becky rce(s) Supporting Document(s) venous pH 7.320 units 7.330-7.430 Below low normal Venous pH JEFF ([facility]) venous partial pressure CO2 42.6 mmHg 38.0-50.0 Venous P artial Pressure CO2 JEFF ([facility]) venous partial pressure O2 62.5 mmHg 30.0-50.0 Above high nor mal Venous Partial Pressure O2 JEFF ([facility]) venous total CO2 22.8 mEq/L 24.0-28.0 Below low normal Venous Total CO2 JEFF ([facility]) venous HCO3 21.5 mEq/L 23.0-27.0 Below low normal Venous HCO3 JEFF ([facility]) venous O2 saturation 91.2 % 60.0-80.0 Above high normal Venous O 2 Saturation JEFF ([facility]) venous base excess -2.0-2.0 Below low normal Venous Base Excess JEFF ([facility]) venous standard HCO3 20.7 mEq/L Venous Standard HCO3 JEFF ([facility]) ID Date Data Source [id number] 08/09/2020 12:40:00 PM EDT [place] ([facility]) Name Value Range Interpretation Code Description Data Becky rce(s) Supporting Document(s) Hemoglobin A1c/Hemoglobin.total in Blood 8.6 % Hemoglobin a1C [place] ([facility]) estimated average glucose 200 mg/dL 60-110 Above high norm al Estimated Average Glucose [place] ([facility]) ID Date Data Source [id number] 08/09/2020 12:40:00 PM EDT [place] ([facility]) Name Value Range Interpretation Code Description Data Becky rce(s) Supporting Document(s) acetone/ketone 1.22 mg/dL <2.81 Acetone/ketone [place] ([facility]) ID Date Data Source [id number] 08/09/2020 12:40:00 PM EDT [place] ([facility]) Name Value Range Interpretation Code Description Data Becky rce(s) Supporting Document(s) glucose, fasting 210 mg/dL 70-100 Above high normal Glucose, Fas ting JEFF ([facility]) blood urea nitrogen 16 mg/dL 7-18 Blood Urea Nitro gen JEFF ([facility]) glomerular filtration rate > 60.0 >60 Glomerula r Filtration Rate JEFF ([facility]) creatinine for GFR 1.03 mg/dL 0.70-1.30 Creatinine for GF R JEFF ([facility]) sodium level 135 mEq/L 136-145 Below low normal Sodium Level ATHE NA ([facility]) potassium serum 4.0 mEq/L 3.5-5.1 Potassium Serum ATHE NA ([facility]) chloride level 101 mEq/L 98-107 Chloride Level [place] ([facility]) anion gap 6 mEq/L 8-16 Below low normal Anion Gap JEFF ( [facility]) carbon dioxide level 28 mEq/L 21-32 Carbon Dioxide Level JEFF ([facility]) calcium level 9.7 mg/dL 8.5-10.1 Calcium Level JEFF ( [facility]) ID Date Data Source [id number] 08/09/2020 12:40:00 PM EDT JEFF ([facility]) Name Value Range Interpretation Code Description Data Becky rce(s) Supporting Document(s) ALT/SGPT 39 U/L 12-78 ALT/SGPT JE[facility] ([facility]) alkaline phosphatase 101 U/L 45-117 Alkaline Phosph atase JE[place] ([facility]) AST/SGOT 24 U/L 7-37 AST/SGOT JE[facility] ([facility]) bilirubin,total 0.4 mg/dL 0.2-1.0 Bilirubin,total ATHE ([facility]) bilirubin,direct 0.1 mg/dL 0.0-0.2 Bilirubin,direct AT [facility] ([facility]) albumin 3.9 gm/dL 3.2-5.2 Albumin JEFF ([facility]) total protein 7.6 gm/dL 6.4-8.2 Total Protein JEFF ( [facility]) albumin/globulin ratio Albumin/globu bianca Ratio JEFF ([facility]) ID Date Data Source [id number] 08/09/2020 12:40:00 PM EDT JEFF ([facility]) Name Value Range Interpretation Code Description Data Becky rce(s) Supporting Document(s) hemoglobin 15.5 g/dL 13.5-17.5 Hemoglobin JEFF ([facility]) red blood count 5.23 10 4.30-6.10 Red Blood Count ATHE ([facility]) white blood count 7.4 10 4.0-10.0 White Blood Count JEFF ([facility]) mean corpuscular hemoglobin 29.6 pg 27.0-33.0 Mean Cor puscular Hemoglobin JEFF ([facility]) mean corpuscular volume 88.0 fL 80.0-96.0 Mean Corpusc ular Volume JEFF ([facility]) hematocrit 46.0 % 42.0-52.0 Hematocrit JEFF ([facility]) mean corpuscular HGB conc 33.7 g/dL 32.0-36.5 Mean Corpu scular HGB Conc JEFF ([facility]) red cell distribution width 12.5 % 11.5-14.5 Red Cell Distribution Width JEFF ([facility]) lymph % 23.0 % 24.0-44.0 Below low normal Lymph % JEFF ( [facility]) neutrophils % 60.8 % 36.0-66.0 Neutrophils % [place] ( [facility]) platelet count, automated 186 10 150-450 Platelet C ount, Automated JEFF ([facility]) eos % 5.8 % 0.0-3.0 Above high normal Eos % JEFF ([facility]) baso % 1.0 % 0.0-1.0 Baso % JEFF ([facility]) mono % 7.6 % 0.0-5.0 Above high normal [place] % JEFF ([facility]) neutrophils # 4.5 10 1.5-8.5 Neutrophils # [place] ( [facility]) nucleated red blood cell % 0.0 % 0-0 Nucleated Red Blood Cell % JEFF ([facility]) immature granulocyte % 1.8 % 0-3.0 Immature Gran ulocyte % JEFF ([facility]) eos # 0.4 10 0.0-0.5 Eos # JEFF ([facility]) lymph # 1.7 10 1.5-5.0 Lymph # JEFF ([facility]) mono # 0.6 10 0.0-0.8 [place] # JEFF ([facility]) baso # 0.1 10 0.0-0.2 Baso # JEFF ([facility]) ID Date Data Source [id number] 08/09/2020 12:40:00 PM EDT [place] ([facility]) Name Value Range Interpretation Code Description Data Becky rce(s) Supporting Document(s) venous pH 7.320 units 7.330-7.430 Below low normal Venous pH JEFF ([facility]) venous partial pressure CO2 42.6 mmHg 38.0-50.0 Venous P artial Pressure CO2 JEFF ([facility]) venous total CO2 22.8 mEq/L 24.0-28.0 Below low normal Venous Total CO2 JE[facility] ([facility]) venous HCO3 21.5 mEq/L 23.0-27.0 Below low normal Venous HCO3 JE[facility] ([facility]) venous partial pressure O2 62.5 mmHg 30.0-50.0 Above high nor mal Venous Partial Pressure O2 [place] ([facility]) venous O2 saturation 91.2 % 60.0-80.0 Above high normal Venous O 2 Saturation [place] ([facility]) venous standard HCO3 20.7 mEq/L Venous Standard HCO3 [place] ([facility]) venous base excess -2.0-2.0 Below low normal Venous Base Excess [place] ([facility]) ID Date Data Source [id number] 08/09/2020 12:40:00 PM EDT [place] ([facility]) Name Value Range Interpretation Code Description Data Becky rce(s) Supporting Document(s) Hemoglobin A1c/Hemoglobin.total in Blood 8.6 % Hemoglobin a1C [place] ([facility]) estimated average glucose 200 mg/dL 60-110 Above high norm al Estimated Average Glucose [place] ([facility]) ID Date Data Source [id number] 08/09/2020 12:40:00 PM EDT JEFF ([facility]) Name Value Range Interpretation Code Description Data Becky rce(s) Supporting Document(s) acetone/ketone 1.22 mg/dL <2.81 Acetone/ketone [place] ([facility]) ID Date Data Source [id number] 08/09/2020 12:40:00 PM EDT [place] ([facility]) Name Value Range Interpretation Code Description Data Becky rce(s) Supporting Document(s) glucose, fasting 210 mg/dL 70-100 Above high normal Glucose, Fas ting JEFF ([facility]) glomerular filtration rate > 60.0 >60 [place] r Filtration Rate JEFF ([facility]) blood urea nitrogen 16 mg/dL 7-18 Blood Urea Nitro gen JEFF ([facility]) sodium level 135 mEq/L 136-145 Below low normal Sodium Level ATHE NA ([facility]) creatinine for GFR 1.03 mg/dL 0.70-1.30 Creatinine for GF R JE[place] ([facility]) chloride level 101 mEq/L 98-107 Chloride Level [place] ([facility]) carbon dioxide level 28 mEq/L 21-32 Carbon Dioxide Level [place] ([facility]) potassium serum 4.0 mEq/L 3.5-5.1 Potassium Serum ATHE NA ([facility]) calcium level 9.7 mg/dL 8.5-10.1 Calcium Level [place] ( [facility]) anion gap 6 mEq/L 8-16 Below low normal Anion Gap [place] ( [facility]) ID Date Data Source [id number] 08/09/2020 12:40:00 PM EDT [place] ([facility]) Name Value Range Interpretation Code Description Data Becky rce(s) Supporting Document(s) AST/SGOT 24 U/L 7-37 AST/SGOT [facility] ([facility]) ALT/SGPT 39 U/L 12-78 ALT/SGPT JE[facility] ([facility]) alkaline phosphatase 101 U/L 45-117 Alkaline Phosph atase JE[place] ([facility]) bilirubin,total 0.4 mg/dL 0.2-1.0 Bilirubin,total ATHE ([facility]) total protein 7.6 gm/dL 6.4-8.2 Total Protein [place] ( [facility]) bilirubin,direct 0.1 mg/dL 0.0-0.2 Bilirubin,direct AT [place] ([facility]) albumin 3.9 gm/dL 3.2-5.2 Albumin JEFF ([facility]) albumin/globulin ratio Albumin/globu bianca Ratio JEFF ([facility]) ID Date Data Source [id number] 08/09/2020 12:40:00 PM EDT JEFF ([facility]) Name Value Range Interpretation Code Description Data Becky rce(s) Supporting Document(s) red blood count 5.23 10 4.30-6.10 Red Blood Count ATHE NA ([facility]) white blood count 7.4 10 4.0-10.0 White Blood Count JEFF ([facility]) hemoglobin 15.5 g/dL 13.5-17.5 Hemoglobin JEFF ([facility]) mean corpuscular volume 88.0 fL 80.0-96.0 Mean Corpusc ular Volume JEFF ([facility]) hematocrit 46.0 % 42.0-52.0 Hematocrit JE[place] ([facility]) red cell distribution width 12.5 % 11.5-14.5 Red Cell Distribution Width JE[place] ([facility]) mean corpuscular HGB conc 33.7 g/dL 32.0-36.5 Mean Corpu scular HGB Conc JE[place] ([facility]) mean corpuscular hemoglobin 29.6 pg 27.0-33.0 Mean Cor puscular Hemoglobin JE[place] ([facility]) mono % 7.6 % 0.0-5.0 Above high normal [place] % JEFF ([facility]) neutrophils % 60.8 % 36.0-66.0 Neutrophils % JEFF ( [facility]) lymph % 23.0 % 24.0-44.0 Below low normal Lymph % JEFF ( [facility]) platelet count, automated 186 10 150-450 Platelet C ount, Automated [place] ([facility]) eos % 5.8 % 0.0-3.0 Above high normal Eos % JEFF ([facility]) baso % 1.0 % 0.0-1.0 Baso % JEFF ([facility]) immature granulocyte % 1.8 % 0-3.0 Immature Gran ulocyte % JEFF ([facility]) neutrophils # 4.5 10 1.5-8.5 Neutrophils # JEFF ( [facility]) nucleated red blood cell % 0.0 % 0-0 Nucleated Red Blood Cell % JE[place] ([facility]) lymph # 1.7 10 1.5-5.0 Lymph # JEFF ([facility]) baso # 0.1 10 0.0-0.2 Baso # JEFF ([facility]) mono # 0.6 10 0.0-0.8 [place] # JEFF ([facility]) eos # 0.4 10 0.0-0.5 Eos # JEFF ([facility]) ID Date Data Source [id number] 08/09/2020 12:40:00 PM EDT [place] ([facility]) Name Value Range Interpretation Code Description Data Becky rce(s) Supporting Document(s) venous pH 7.320 units 7.330-7.430 Below low normal Venous pH JEFF ([facility]) venous partial pressure CO2 42.6 mmHg 38.0-50.0 Venous P artial Pressure CO2 JE[place] ([facility]) venous HCO3 21.5 mEq/L 23.0-27.0 Below low normal Venous HCO3 [place] ([facility]) venous total CO2 22.8 mEq/L 24.0-28.0 Below low normal Venous Total CO2 JE[place] ([facility]) venous partial pressure O2 62.5 mmHg 30.0-50.0 Above high nor mal Venous Partial Pressure O2 JE[place] ([facility]) venous standard HCO3 20.7 mEq/L Venous Standard HCO3 [place] ([facility]) venous base excess -2.0-2.0 Below low normal Venous Base Excess JE[place] ([facility]) venous O2 saturation 91.2 % 60.0-80.0 Above high normal Venous O 2 Saturation [facility] ([facility]) ID Date Data Source [id number] 08/09/2020 12:40:00 PM EDT JEFF ([facility]) Name Value Range Interpretation Code Description Data Becky rce(s) Supporting Document(s) estimated average glucose 200 mg/dL 60-110 Above high norm al Estimated Average Glucose [place] ([facility]) Hemoglobin A1c/Hemoglobin.total in Blood 8.6 % Hemoglobin a1C [place] ([facility]) ID Date Data Source [id number] 08/09/2020 12:40:00 PM EDT [place] ([facility]) Name Value Range Interpretation Code Description Data Becky rce(s) Supporting Document(s) acetone/ketone 1.22 mg/dL <2.81 Acetone/ketone [place] ([facility]) ID Date Data Source [id number] 08/09/2020 12:40:00 PM EDT [place] ([facility]) Name Value Range Interpretation Code Description Data Becky rce(s) Supporting Document(s) creatinine for GFR 1.03 mg/dL 0.70-1.30 Creatinine for GF R [place] ([facility]) blood urea nitrogen 16 mg/dL 7-18 Blood Urea Nitro gen [place] ([facility]) glomerular filtration rate > 60.0 >60 Glomerula r Filtration Rate [place] ([facility]) glucose, fasting 210 mg/dL 70-100 Above high normal Glucose, Fas ting [place] ([facility]) sodium level 135 mEq/L 136-145 Below low normal Sodium Level ATHE NA ([facility]) carbon dioxide level 28 mEq/L 21-32 Carbon Dioxide Level [place] ([facility]) potassium serum 4.0 mEq/L 3.5-5.1 Potassium Serum ATHE NA ([facility]) chloride level 101 mEq/L 98-107 Chloride Level [place] ([facility]) anion gap 6 mEq/L 8-16 Below low normal Anion Gap [place] ( [facility]) calcium level 9.7 mg/dL 8.5-10.1 Calcium Level [facility]) ID Date Data Source [id number] 08/09/2020 12:40:00 PM EDT JEFF ([facility]) Name Value Range Interpretation Code Description Data Becky rce(s) Supporting Document(s) ALT/SGPT 39 U/L 12-78 ALT/SGPT [facility] ([facility]) AST/SGOT 24 U/L 7-37 AST/SGOT [facility] ([facility]) bilirubin,direct 0.1 mg/dL 0.0-0.2 Bilirubin,direct AT [place] ([facility]) total protein 7.6 gm/dL 6.4-8.2 Total Protein JEFF ( [facility]) bilirubin,total 0.4 mg/dL 0.2-1.0 Bilirubin,total ATHE NA ([facility]) alkaline phosphatase 101 U/L 45-117 Alkaline Phosph atase JEFF ([facility]) albumin/globulin ratio Albumin/globu bianca Ratio JEFF ([facility]) albumin 3.9 gm/dL 3.2-5.2 Albumin JE[place] ([facility]) ID Date Data Source [id number] 08/09/2020 12:40:00 PM EDT JEFF ([facility]) Name Value Range Interpretation Code Description Data Becky rce(s) Supporting Document(s) white blood count 7.4 10 4.0-10.0 White Blood Count [place] ([facility]) hemoglobin 15.5 g/dL 13.5-17.5 Hemoglobin JE[place] ([facility]) mean corpuscular volume 88.0 fL 80.0-96.0 Mean Corpusc ular Volume JE[place] ([facility]) red blood count 5.23 10 4.30-6.10 Red Blood Count ATHE NA ([facility]) hematocrit 46.0 % 42.0-52.0 Hematocrit JE[place] ([facility]) mean corpuscular HGB conc 33.7 g/dL 32.0-36.5 Mean Corpu scular HGB Conc [place] ([facility]) mean corpuscular hemoglobin 29.6 pg 27.0-33.0 Mean Cor puscular Hemoglobin [place] ([facility]) red cell distribution width 12.5 % 11.5-14.5 Red Cell Distribution Width [facility] ([facility]) mono % 7.6 % 0.0-5.0 Above high normal [place] % JEFF ([facility]) platelet count, automated 186 10 150-450 Platelet C ount, Automated [place] ([facility]) neutrophils % 60.8 % 36.0-66.0 Neutrophils % [place] ( [facility]) lymph % 23.0 % 24.0-44.0 Below low normal Lymph % [place] ( [facility]) immature granulocyte % 1.8 % 0-3.0 Immature Gran ulocyte % [place] ([facility]) baso % 1.0 % 0.0-1.0 Baso % [place] ([facility]) eos % 5.8 % 0.0-3.0 Above high normal Eos % [place] ([facility]) nucleated red blood cell % 0.0 % 0-0 Nucleated Red Blood Cell % [place] ([facility]) eos # 0.4 10 0.0-0.5 Eos # JE[place] ([facility]) lymph # 1.7 10 1.5-5.0 Lymph # JE[facility] ([facility]) neutrophils # 4.5 10 1.5-8.5 Neutrophils # [place] ( [facility]) mono # 0.6 10 0.0-0.8 [place] # JEFF ([facility]) baso # 0.1 10 0.0-0.2 Baso # JEFF ([facility]) ID Date Data Source [id number] 08/09/2020 12:40:00 PM EDT [place] ([facility]) Name Value Range Interpretation Code Description Data Becky rce(s) Supporting Document(s) venous partial pressure CO2 42.6 mmHg 38.0-50.0 Venous P artial Pressure CO2 [facility] ([facility]) venous pH 7.320 units 7.330-7.430 Below low normal Venous pH [place] ([facility]) venous total CO2 22.8 mEq/L 24.0-28.0 Below low normal Venous Total CO2 [facility] ([facility]) venous partial pressure O2 62.5 mmHg 30.0-50.0 Above high nor mal Venous Partial Pressure O2 [place] ([facility]) venous HCO3 21.5 mEq/L 23.0-27.0 Below low normal Venous HCO3 [place] ([facility]) venous standard HCO3 20.7 mEq/L Venous Standard HCO3 [place] ([facility]) venous base excess -2.0-2.0 Below low normal Venous Base Excess [place] ([facility]) venous O2 saturation 91.2 % 60.0-80.0 Above high normal Venous O 2 Saturation [place] ([facility]) ID Date Data Source [id number] 08/09/2020 12:40:00 PM EDT [facility]) Name Value Range Interpretation Code Description Data Becky rce(s) Supporting Document(s) acetone/ketone 1.22 mg/dL <2.81 Acetone/ketone [facility]) ID Date Data Source [id number] 08/09/2020 12:40:00 PM EDT [facility]) Name Value Range Interpretation Code Description Data Becky rce(s) Supporting Document(s) glucose, fasting 210 mg/dL 70-100 Above high normal Glucose, Fas ting JE[place] ([facility]) blood urea nitrogen 16 mg/dL 7-18 Blood Urea Nitro gen JE[place] ([facility]) glomerular filtration rate > 60.0 >60 Glomerula r Filtration Rate [place] ([facility]) creatinine for GFR 1.03 mg/dL 0.70-1.30 Creatinine for GF R [place] ([facility]) chloride level 101 mEq/L 98-107 Chloride Level JE[place] ([facility]) carbon dioxide level 28 mEq/L 21-32 Carbon Dioxide Level JE[place] ([facility]) potassium serum 4.0 mEq/L 3.5-5.1 Potassium Serum A[place] NA ([facility]) sodium level 135 mEq/L 136-145 Below low normal Sodium Level ATHE NA ([facility]) anion gap 6 mEq/L 8-16 Below low normal Anion Gap JEFF ( [facility]) calcium level 9.7 mg/dL 8.5-10.1 Calcium Level JE[place] ( [facility]) ID Date Data Source [id number] 08/09/2020 12:40:00 PM EDT [place] ([facility]) Name Value Range Interpretation Code Description Data Becky rce(s) Supporting Document(s) AST/SGOT 24 U/L 7-37 AST/SGOT [facility] ([facility]) ALT/SGPT 39 U/L 12-78 ALT/SGPT [facility] ([facility]) bilirubin,total 0.4 mg/dL 0.2-1.0 Bilirubin,total AT[facility] ([facility]) total protein 7.6 gm/dL 6.4-8.2 Total Protein JEFF ( [facility]) bilirubin,direct 0.1 mg/dL 0.0-0.2 Bilirubin,direct AT [place] ([facility]) alkaline phosphatase 101 U/L 45-117 Alkaline Phosph atase [facility] ([facility]) albumin 3.9 gm/dL 3.2-5.2 Albumin JE[facility] ([facility]) albumin/globulin ratio Albumin/globu bianca Ratio JEFF ([facility]) ID Date Data Source [id number] 08/09/2020 12:40:00 PM EDT [place] ([facility]) Name Value Range Interpretation Code Description Data Becky rce(s) Supporting Document(s) white blood count 7.4 10 4.0-10.0 White Blood Count JE[facility] ([facility]) red blood count 5.23 10 4.30-6.10 Red Blood Count ATHE NA ([facility]) hemoglobin 15.5 g/dL 13.5-17.5 Hemoglobin JEFF ([facility]) mean corpuscular hemoglobin 29.6 pg 27.0-33.0 Mean Cor puscular Hemoglobin JE[place] ([facility]) mean corpuscular volume 88.0 fL 80.0-96.0 Mean Corpusc ular Volume JEFF ([facility]) hematocrit 46.0 % 42.0-52.0 Hematocrit JE[place] ([facility]) mean corpuscular HGB conc 33.7 g/dL 32.0-36.5 Mean Corpu scular HGB Conc JE[facility] ([facility]) platelet count, automated 186 10 150-450 Platelet C ount, Automated JE[place] ([facility]) red cell distribution width 12.5 % 11.5-14.5 Red Cell Distribution Width JE[place] ([facility]) neutrophils % 60.8 % 36.0-66.0 Neutrophils % [place] ( [facility]) lymph % 23.0 % 24.0-44.0 Below low normal Lymph % [place] ( [facility]) mono % 7.6 % 0.0-5.0 Above high normal [place] % JEFF ([facility]) eos % 5.8 % 0.0-3.0 Above high normal Eos % JEFF ([facility]) baso % 1.0 % 0.0-1.0 Baso % JEFF ([facility]) immature granulocyte % 1.8 % 0-3.0 Immature Gran ulocyte % [place] ([facility]) nucleated red blood cell % 0.0 % 0-0 Nucleated Red Blood Cell % JEFF ([facility]) neutrophils # 4.5 10 1.5-8.5 Neutrophils # JE[place] ( [facility]) mono # 0.6 10 0.0-0.8 [place] # JEFF ([facility]) lymph # 1.7 10 1.5-5.0 Lymph # JEFF ([facility]) eos # 0.4 10 0.0-0.5 Eos # JEFF ([facility]) baso # 0.1 10 0.0-0.2 Baso # JEFF ([facility]) ID Date Data Source [id number] 08/09/2020 12:40:00 PM EDT JE[place] ([facility]) Name Value Range Interpretation Code Description Data Becky rce(s) Supporting Document(s) venous pH 7.320 units 7.330-7.430 Below low normal Venous pH JEFF ([facility]) venous partial pressure CO2 42.6 mmHg 38.0-50.0 Venous P artial Pressure CO2 JE[facility] ([facility]) venous partial pressure O2 62.5 mmHg 30.0-50.0 Above high nor mal Venous Partial Pressure O2 JE[facility] ([facility]) venous total CO2 22.8 mEq/L 24.0-28.0 Below low normal Venous Total CO2 JE[facility] ([facility]) venous HCO3 21.5 mEq/L 23.0-27.0 Below low normal Venous HCO3 [facility] ([facility]) venous O2 saturation 91.2 % 60.0-80.0 Above high normal Venous O 2 Saturation [facility] ([facility]) venous base excess -2.0-2.0 Below low normal Venous Base Excess [facility] ([facility]) venous standard HCO3 20.7 mEq/L Venous Standard HCO3 [facility] ([facility]) ID Date Data Source [id number] 08/09/2020 12:40:00 PM EDT JE[facility] ([facility]) Name Value Range Interpretation Code Description Data Becky rce(s) Supporting Document(s) Hemoglobin A1c/Hemoglobin.total in Blood 8.6 % Hemoglobin a1C [facility] ([facility]) estimated average glucose 200 mg/dL 60-110 Above high norm al Estimated Average Glucose [facility] ([facility]) ID Date Data Source [id number] 08/09/2020 12:40:00 PM EDT JE[facility] ([facility]) Name Value Range Interpretation Code Description Data Becky rce(s) Supporting Document(s) acetone/ketone 1.22 mg/dL <2.81 Acetone/ketone [facility] ([facility]) ID Date Data Source [id number] 08/09/2020 12:40:00 PM EDT [facility] ([facility]) Name Value Range Interpretation Code Description Data Becky rce(s) Supporting Document(s) blood urea nitrogen 16 mg/dL 7-18 Blood Urea Nitro gen JEFF ([facility]) glucose, fasting 210 mg/dL 70-100 Above high normal Glucose, Fas ting JEFF ([facility]) creatinine for GFR 1.03 mg/dL 0.70-1.30 Creatinine for GF R JEFF ([facility]) potassium serum 4.0 mEq/L 3.5-5.1 Potassium Serum ATHE NA ([facility]) sodium level 135 mEq/L 136-145 Below low normal Sodium Level [facility] NA ([facility] [facility] glomerular filtration rate > 60.0 >60 Glomerula r Filtration Rate JEFF ([facility]) calcium level 9.7 mg/dL 8.5-10.1 Calcium Level JEFF ( [facility]) anion gap 6 mEq/L 8-16 Below low normal Anion Gap JEFF ( [facility]) carbon dioxide level 28 mEq/L 21-32 Carbon Dioxide Level JEFF ([facility]) chloride level 101 mEq/L 98-107 Chloride Level [place] ([facility]) ID Date Data Source [id number] 08/09/2020 12:40:00 PM EDT JEFF ([facility]) Name Value Range Interpretation Code Description Data Becky rce(s) Supporting Document(s) AST/SGOT 24 U/L 7-37 AST/SGOT JEFF ([facility]) bilirubin,direct 0.1 mg/dL 0.0-0.2 Bilirubin,direct AT [place] ([facility]) alkaline phosphatase 101 U/L 45-117 Alkaline Phosph atase JEFF ([facility]) ALT/SGPT 39 U/L 12-78 ALT/SGPT [place] ([facility]) bilirubin,total 0.4 mg/dL 0.2-1.0 Bilirubin,total ATHE ([facility]) albumin 3.9 gm/dL 3.2-5.2 Albumin [place] ([facility]) total protein 7.6 gm/dL 6.4-8.2 Total Protein JEFF ( [facility]) albumin/globulin ratio Albumin/globu bianca Ratio JEFF ([facility]) ID Date Data Source [id number] 08/09/2020 12:40:00 PM EDT JEFF ([facility]) Name Value Range Interpretation Code Description Data Becky rce(s) Supporting Document(s) white blood count 7.4 10 4.0-10.0 White Blood Count JEFF ([facility]) red blood count 5.23 10 4.30-6.10 Red Blood Count ATHE ([facility]) hematocrit 46.0 % 42.0-52.0 Hematocrit JEFF ([facility]) mean corpuscular volume 88.0 fL 80.0-96.0 Mean Corpusc ular Volume JEFF ([facility]) hemoglobin 15.5 g/dL 13.5-17.5 Hemoglobin JEFF ([facility]) mean corpuscular hemoglobin 29.6 pg 27.0-33.0 Mean Cor puscular Hemoglobin JEFF ([facility]) mean corpuscular HGB conc 33.7 g/dL 32.0-36.5 Mean Corpu scular HGB Conc JEFF ([facility]) red cell distribution width 12.5 % 11.5-14.5 Red Cell Distribution Width JEFF ([facility]) lymph % 23.0 % 24.0-44.0 Below low normal Lymph % JEFF ( [facility]) neutrophils % 60.8 % 36.0-66.0 Neutrophils % JEFF ( [facility]) platelet count, automated 186 10 150-450 Platelet C ount, Automated JEFF ([facility]) mono % 7.6 % 0.0-5.0 Above high normal [place] % JEFF ([facility]) nucleated red blood cell % 0.0 % 0-0 Nucleated Red Blood Cell % JEFF ([facility]) baso % 1.0 % 0.0-1.0 Baso % JEFF ([facility]) immature granulocyte % 1.8 % 0-3.0 Immature Gran ulocyte % JEFF ([facility]) eos % 5.8 % 0.0-3.0 Above high normal Eos % JEFF ([facility]) lymph # 1.7 10 1.5-5.0 Lymph # JEFF ([facility]) neutrophils # 4.5 10 1.5-8.5 Neutrophils # JEFF ( [facility]) mono # 0.6 10 0.0-0.8 [place] # JEFF ([facility]) baso # 0.1 10 0.0-0.2 Baso # JEFF ([facility]) eos # 0.4 10 0.0-0.5 Eos # JEFF ([facility]) ID Date Data Source [id number] 08/09/2020 12:40:00 PM EDT [place] ([facility]) Name Value Range Interpretation Code Description Data Becky rce(s) Supporting Document(s) venous pH 7.320 units 7.330-7.430 Below low normal Venous pH JEFF ([facility]) venous partial pressure O2 62.5 mmHg 30.0-50.0 Above high nor mal Venous Partial Pressure O2 JEFF ([facility]) venous partial pressure CO2 42.6 mmHg 38.0-50.0 Venous P artial Pressure CO2 JEFF ([facility]) venous base excess -2.0-2.0 Below low normal Venous Base Excess JEFF ([facility]) venous total CO2 22.8 mEq/L 24.0-28.0 Below low normal Venous Total CO2 JEFF ([facility]) venous HCO3 21.5 mEq/L 23.0-27.0 Below low normal Venous HCO3 JEFF ([facility]) venous O2 saturation 91.2 % 60.0-80.0 Above high normal Venous O 2 Saturation JEFF ([facility]) venous standard HCO3 20.7 mEq/L Venous Standard HCO3 JEFF ([facility]) ID Date Data Source [id number] 08/09/2020 12:40:00 PM EDT [place] ([facility]) Name Value Range Interpretation Code Description Data Becky rce(s) Supporting Document(s) Hemoglobin A1c/Hemoglobin.total in Blood 8.6 % Hemoglobin a1C JEFF ([facility]) estimated average glucose 200 mg/dL 60-110 Above high norm al Estimated Average Glucose [place] ([facility]) ID Date Data Source [id number] 08/09/2020 12:40:00 PM EDT JEFF ([facility]) Name Value Range Interpretation Code Description Data Becky rce(s) Supporting Document(s) acetone/ketone 1.22 mg/dL <2.81 Acetone/ketone [place] ([facility]) ID Date Data Source [id number] 08/09/2020 12:40:00 PM EDT [place] ([facility]) Name Value Range Interpretation Code Description Data Becky rce(s) Supporting Document(s) glucose, fasting 210 mg/dL 70-100 Above high normal Glucose, Fas ting JEFF ([facility]) blood urea nitrogen 16 mg/dL 7-18 Blood Urea Nitro gen JEFF ([facility]) sodium level 135 mEq/L 136-145 Below low normal Sodium Level ATHE NA ([facility]) glomerular filtration rate > 60.0 >60 Glomerula r Filtration Rate JEFF ([facility]) creatinine for GFR 1.03 mg/dL 0.70-1.30 Creatinine for GF R JEFF ([facility]) potassium serum 4.0 mEq/L 3.5-5.1 Potassium Serum ATHE NA ([facility]) chloride level 101 mEq/L 98-107 Chloride Level JEFF ([facility]) carbon dioxide level 28 mEq/L 21-32 Carbon Dioxide Level JEFF ([facility]) anion gap 6 mEq/L 8-16 Below low normal Anion Gap JEFF ( [facility]) calcium level 9.7 mg/dL 8.5-10.1 Calcium Level [place] ( [facility]) ID Date Data Source [id number] 08/09/2020 12:40:00 PM EDT JEFF ([facility]) Name Value Range Interpretation Code Description Data Becky rce(s) Supporting Document(s) AST/SGOT 24 U/L 7-37 AST/SGOT JE[facility] ([facility]) bilirubin,total 0.4 mg/dL 0.2-1.0 Bilirubin,total ATHE NA ([facility]) alkaline phosphatase 101 U/L 45-117 Alkaline Phosph atase JEFF ([facility]) bilirubin,direct 0.1 mg/dL 0.0-0.2 Bilirubin,direct AT [facility]) ALT/SGPT 39 U/L 12-78 ALT/SGPT JEFF ([facility]) total protein 7.6 gm/dL 6.4-8.2 Total Protein JEFF ( [facility]) albumin 3.9 gm/dL 3.2-5.2 Albumin JEFF ([facility]) albumin/globulin ratio Albumin/globu bianca Ratio JEFF ([facility]) ID Date Data Source [id number] 08/09/2020 12:40:00 PM EDT JEFF ([facility]) Name Value Range Interpretation Code Description Data Becky rce(s) Supporting Document(s) red blood count 5.23 10 4.30-6.10 Red Blood Count ATHE NA ([facility]) white blood count 7.4 10 4.0-10.0 White Blood Count JEFF ([facility]) hemoglobin 15.5 g/dL 13.5-17.5 Hemoglobin JEFF ([facility]) mean corpuscular volume 88.0 fL 80.0-96.0 Mean Corpusc ular Volume JEFF ([facility]) mean corpuscular hemoglobin 29.6 pg 27.0-33.0 Mean Cor puscular Hemoglobin JEFF ([facility]) hematocrit 46.0 % 42.0-52.0 Hematocrit JEFF ([facility]) red cell distribution width 12.5 % 11.5-14.5 Red Cell Distribution Width JEFF ([facility]) platelet count, automated 186 10 150-450 Platelet C ount, Automated JEFF ([facility]) mean corpuscular HGB conc 33.7 g/dL 32.0-36.5 Mean Corpu scular HGB Conc JEFF ([facility]) mono % 7.6 % 0.0-5.0 Above high normal [place] % JEFF ([facility]) neutrophils % 60.8 % 36.0-66.0 Neutrophils % JEFF ( [facility]) lymph % 23.0 % 24.0-44.0 Below low normal Lymph % JEFF ( [facility]) eos % 5.8 % 0.0-3.0 Above high normal Eos % [place] ([facility]) immature granulocyte % 1.8 % 0-3.0 Immature Gran ulocyte % JEFF ([facility]) baso % 1.0 % 0.0-1.0 Baso % JEFF ([facility]) nucleated red blood cell % 0.0 % 0-0 Nucleated Red Blood Cell % JEFF ([facility]) neutrophils # 4.5 10 1.5-8.5 Neutrophils # JEFF ( [facility]) lymph # 1.7 10 1.5-5.0 Lymph # JEFF ([facility]) mono # 0.6 10 0.0-0.8 [place] # JEFF ([facility]) eos # 0.4 10 0.0-0.5 Eos # JEFF ([facility]) baso # 0.1 10 0.0-0.2 Baso # JEFF ([facility]) ID Date Data Source [id number] 08/09/2020 12:40:00 PM EDT [place] ([facility]) Name Value Range Interpretation Code Description Data Becky rce(s) Supporting Document(s) venous pH 7.320 units 7.330-7.430 Below low normal Venous pH [place] ([facility]) venous partial pressure O2 62.5 mmHg 30.0-50.0 Above high nor mal Venous Partial Pressure O2 JEFF ([facility]) venous partial pressure CO2 42.6 mmHg 38.0-50.0 Venous P artial Pressure CO2 JEFF ([facility]) venous base excess -2.0-2.0 Below low normal Venous Base Excess JEFF ([facility]) venous HCO3 21.5 mEq/L 23.0-27.0 Below low normal Venous HCO3 JEFF ([facility]) venous total CO2 22.8 mEq/L 24.0-28.0 Below low normal Venous Total CO2 JEFF ([facility]) venous standard HCO3 20.7 mEq/L Venous Standard HCO3 [place] ([facility]) venous O2 saturation 91.2 % 60.0-80.0 Above high normal Venous O 2 Saturation [place] ([facility]) ID Date Data Source [id number] 08/09/2020 12:40:00 PM EDT [place] ([facility]) Name Value Range Interpretation Code Description Data Becky rce(s) Supporting Document(s) Hemoglobin A1c/Hemoglobin.total in Blood 8.6 % Hemoglobin a1C [place] ([facility]) estimated average glucose 200 mg/dL 60-110 Above high norm al Estimated Average Glucose [place] ([facility]) ID Date Data Source [id number] 08/09/2020 12:40:00 PM EDT [place] ([facility]) Name Value Range Interpretation Code Description Data Becky rce(s) Supporting Document(s) acetone/ketone 1.22 mg/dL <2.81 Acetone/ketone [place] ([facility]) ID Date Data Source [id number] 08/09/2020 12:40:00 PM EDT [place] ([facility]) Name Value Range Interpretation Code Description Data Becky rce(s) Supporting Document(s) glucose, fasting 210 mg/dL 70-100 Above high normal Glucose, Fas ting JEFF ([facility]) sodium level 135 mEq/L 136-145 Below low normal Sodium Level ATHE NA ([facility]) glomerular filtration rate > 60.0 >60 Glomerula r Filtration Rate JEFF ([facility]) creatinine for GFR 1.03 mg/dL 0.70-1.30 Creatinine for GF R JEFF ([facility]) blood urea nitrogen 16 mg/dL 7-18 Blood Urea Nitro gen JEFF ([facility]) anion gap 6 mEq/L 8-16 Below low normal Anion Gap JEFF ( [facility]) chloride level 101 mEq/L 98-107 Chloride Level JEFF ([facility]) carbon dioxide level 28 mEq/L 21-32 Carbon Dioxide Level JEFF ([facility]) potassium serum 4.0 mEq/L 3.5-5.1 Potassium Serum ATHE NA ([facility]) calcium level 9.7 mg/dL 8.5-10.1 Calcium Level JEFF ( [facility]) ID Date Data Source [id number] 08/09/2020 12:40:00 PM EDT JEFF ([facility]) Name Value Range Interpretation Code Description Data Becky rce(s) Supporting Document(s) AST/SGOT 24 U/L 7-37 AST/SGOT JE[facility] ([facility]) ALT/SGPT 39 U/L 12-78 ALT/SGPT JEFF ([facility]) alkaline phosphatase 101 U/L 45-117 Alkaline Phosph atase JEFF ([facility]) bilirubin,total 0.4 mg/dL 0.2-1.0 Bilirubin,total ATHE NA ([facility]) total protein 7.6 gm/dL 6.4-8.2 Total Protein JEFF ( [facility]) albumin/globulin ratio Albumin/globu bianca Ratio JEFF ([facility]) albumin 3.9 gm/dL 3.2-5.2 Albumin JEFF ([facility]) bilirubin,direct 0.1 mg/dL 0.0-0.2 Bilirubin,direct AT [facility]) ID Date Data Source [id number] 08/09/2020 12:40:00 PM EDT JEFF ([facility]) Name Value Range Interpretation Code Description Data Becky rce(s) Supporting Document(s) red blood count 5.23 10 4.30-6.10 Red Blood Count ATHE NA ([facility]) white blood count 7.4 10 4.0-10.0 White Blood Count JEFF ([facility]) mean corpuscular hemoglobin 29.6 pg 27.0-33.0 Mean Cor puscular Hemoglobin JEFF ([facility]) hemoglobin 15.5 g/dL 13.5-17.5 Hemoglobin JEFF ([facility]) hematocrit 46.0 % 42.0-52.0 Hematocrit JEFF ([facility]) mean corpuscular volume 88.0 fL 80.0-96.0 Mean Corpusc ular Volume JEFF ([facility]) red cell distribution width 12.5 % 11.5-14.5 Red Cell Distribution Width JEFF ([facility]) mean corpuscular HGB conc 33.7 g/dL 32.0-36.5 Mean Corpu scular HGB Conc JEFF ([facility]) platelet count, automated 186 10 150-450 Platelet C ount, Automated JEFF ([facility]) neutrophils % 60.8 % 36.0-66.0 Neutrophils % [place] ( [facility]) mono % 7.6 % 0.0-5.0 Above high normal [place] % [place] ([facility]) lymph % 23.0 % 24.0-44.0 Below low normal Lymph % JEFF ( [facility]) nucleated red blood cell % 0.0 % 0-0 Nucleated Red Blood Cell % JEFF ([facility]) eos % 5.8 % 0.0-3.0 Above high normal Eos % [place] ([facility]) immature granulocyte % 1.8 % 0-3.0 Immature Gran ulocyte % JEFF ([facility]) baso % 1.0 % 0.0-1.0 Baso % JEFF ([facility]) neutrophils # 4.5 10 1.5-8.5 Neutrophils # JEFF ( [facility]) mono # 0.6 10 0.0-0.8 [place] # JEFF ([facility]) eos # 0.4 10 0.0-0.5 Eos # JEFF ([facility]) lymph # 1.7 10 1.5-5.0 Lymph # JEFF ([facility]) baso # 0.1 10 0.0-0.2 Baso # JEFF ([facility]) ID Date Data Source [id number] 08/09/2020 12:40:00 PM EDT JEFF ([facility]) Name Value Range Interpretation Code Description Data Becky rce(s) Supporting Document(s) venous pH 7.320 units 7.330-7.430 Below low normal Venous pH JEFF ([facility]) venous partial pressure O2 62.5 mmHg 30.0-50.0 Above high nor mal Venous Partial Pressure O2 JEFF ([facility]) venous partial pressure CO2 42.6 mmHg 38.0-50.0 Venous P artial Pressure CO2 JEFF ([facility]) venous base excess -2.0-2.0 Below low normal Venous Base Excess JEFF ([facility]) venous total CO2 22.8 mEq/L 24.0-28.0 Below low normal Venous Total CO2 JEFF ([facility]) venous standard HCO3 20.7 mEq/L Venous Standard HCO3 JEFF ([facility]) venous HCO3 21.5 mEq/L 23.0-27.0 Below low normal Venous HCO3 JEFF ([facility]) venous O2 saturation 91.2 % 60.0-80.0 Above high normal Venous O 2 Saturation JEFF ([facility]) ID Date Data Source [id number] 08/09/2020 12:40:00 PM EDT JEFF ([facility]) Name Value Range Interpretation Code Description Data Becky rce(s) Supporting Document(s) Hemoglobin A1c/Hemoglobin.total in Blood 8.6 % Hemoglobin a1C JEFF ([facility]) estimated average glucose 200 mg/dL 60-110 Above high norm al Estimated Average Glucose JEFF ([facility]) ID Date Data Source [id number] 08/09/2020 12:40:00 PM EDT [place] ([facility]) Name Value Range Interpretation Code Description Data Becky rce(s) Supporting Document(s) acetone/ketone 1.22 mg/dL <2.81 Acetone/ketone JEFF ([facility]) ID Date Data Source [id number] 08/09/2020 12:40:00 PM EDT JEFF ([facility]) Name Value Range Interpretation Code Description Data Becky rce(s) Supporting Document(s) glucose, fasting 210 mg/dL 70-100 Above high normal Glucose, Fas ting JEFF ([facility]) glomerular filtration rate > 60.0 >60 Glomerula r Filtration Rate JEFF ([facility]) blood urea nitrogen 16 mg/dL 7-18 Blood Urea Nitro gen JEFF ([facility]) creatinine for GFR 1.03 mg/dL 0.70-1.30 Creatinine for GF R JEFF ([facility]) carbon dioxide level 28 mEq/L 21-32 Carbon Dioxide Level JEFF ([facility]) sodium level 135 mEq/L 136-145 Below low normal Sodium Level ATHE NA ([facility]) chloride level 101 mEq/L 98-107 Chloride Level [place] ([facility]) potassium serum 4.0 mEq/L 3.5-5.1 Potassium Serum ATHE NA ([facility]) anion gap 6 mEq/L 8-16 Below low normal Anion Gap JEFF ( [facility]) calcium level 9.7 mg/dL 8.5-10.1 Calcium Level [place] ( [facility]) ID Date Data Source [id number] 08/09/2020 12:40:00 PM EDT [place] ([facility]) Name Value Range Interpretation Code Description Data Becky rce(s) Supporting Document(s) AST/SGOT 24 U/L 7-37 AST/SGOT JEFF ([facility]) ALT/SGPT 39 U/L 12-78 ALT/SGPT JEFF ([facility]) bilirubin,direct 0.1 mg/dL 0.0-0.2 Bilirubin,direct AT [place] ([facility]) total protein 7.6 gm/dL 6.4-8.2 Total Protein JEFF ( [facility]) alkaline phosphatase 101 U/L 45-117 Alkaline Phosph atase JEFF ([facility]) bilirubin,total 0.4 mg/dL 0.2-1.0 Bilirubin,total ATHE NA ([facility]) albumin 3.9 gm/dL 3.2-5.2 Albumin JEFF ([facility]) albumin/globulin ratio Albumin/globu bianca Ratio JEFF ([facility]) ID Date Data Source [id number] 08/09/2020 12:40:00 PM EDT [place] ([facility]) Name Value Range Interpretation Code Description Data Becky rce(s) Supporting Document(s) red blood count 5.23 10 4.30-6.10 Red Blood Count ATHE ([facility]) hemoglobin 15.5 g/dL 13.5-17.5 Hemoglobin JEFF ([facility]) white blood count 7.4 10 4.0-10.0 White Blood Count JEFF ([facility]) mean corpuscular hemoglobin 29.6 pg 27.0-33.0 Mean Cor puscular Hemoglobin JEFF ([facility]) hematocrit 46.0 % 42.0-52.0 Hematocrit JEFF ([facility]) mean corpuscular volume 88.0 fL 80.0-96.0 Mean Corpusc ular Volume JEFF ([facility]) red cell distribution width 12.5 % 11.5-14.5 Red Cell Distribution Width JEFF ([facility]) mean corpuscular HGB conc 33.7 g/dL 32.0-36.5 Mean Corpu scular HGB Conc JEFF ([facility]) platelet count, automated 186 10 150-450 Platelet C ount, Automated JEFF ([facility]) neutrophils % 60.8 % 36.0-66.0 Neutrophils % JEFF ( [facility]) mono % 7.6 % 0.0-5.0 Above high normal [place] % JEFF ([facility]) eos % 5.8 % 0.0-3.0 Above high normal Eos % JEFF ([facility]) lymph % 23.0 % 24.0-44.0 Below low normal Lymph % JEFF ( [facility]) immature granulocyte % 1.8 % 0-3.0 Immature Gran ulocyte % JEFF ([facility]) neutrophils # 4.5 10 1.5-8.5 Neutrophils # JEFF ( [facility]) nucleated red blood cell % 0.0 % 0-0 Nucleated Red Blood Cell % JEFF ([facility]) baso % 1.0 % 0.0-1.0 Baso % JEFF ([facility]) mono # 0.6 10 0.0-0.8 [place] # JEFF ([facility]) baso # 0.1 10 0.0-0.2 Baso # JEFF ([facility]) eos # 0.4 10 0.0-0.5 Eos # JEFF ([facility]) lymph # 1.7 10 1.5-5.0 Lymph # JEFF ([facility]) ID Date Data Source [id number] 08/09/2020 12:40:00 PM EDT [place] ([facility]) Name Value Range Interpretation Code Description Data Becky rce(s) Supporting Document(s) venous pH 7.320 units 7.330-7.430 Below low normal Venous pH JEFF ([facility]) venous partial pressure CO2 42.6 mmHg 38.0-50.0 Venous P artial Pressure CO2 JEFF ([facility]) venous HCO3 21.5 mEq/L 23.0-27.0 Below low normal Venous HCO3 JEFF ([facility]) venous partial pressure O2 62.5 mmHg 30.0-50.0 Above high nor mal Venous Partial Pressure O2 JEFF ([facility]) venous total CO2 22.8 mEq/L 24.0-28.0 Below low normal Venous Total CO2 JEFF ([facility]) venous standard HCO3 20.7 mEq/L Venous Standard HCO3 JEFF ([facility]) venous base excess -2.0-2.0 Below low normal Venous Base Excess JEFF ([facility]) venous O2 saturation 91.2 % 60.0-80.0 Above high normal Venous O 2 Saturation JEFF ([facility]) ID Date Data Source [id number] 08/09/2020 12:40:00 PM EDT [place] ([facility]) Name Value Range Interpretation Code Description Data Becky rce(s) Supporting Document(s) Hemoglobin A1c/Hemoglobin.total in Blood 8.6 % Hemoglobin a1C [place] ([facility]) estimated average glucose 200 mg/dL 60-110 Above high norm al Estimated Average Glucose [place] ([facility]) ID Date Data Source [id number] 08/09/2020 12:40:00 PM EDT JEFF ([facility]) Name Value Range Interpretation Code Description Data Becky rce(s) Supporting Document(s) acetone/ketone 1.22 mg/dL <2.81 Acetone/ketone [place] ([facility]) ID Date Data Source [id number] 08/09/2020 12:40:00 PM EDT [place] [facility] [facility] Name Value Range Interpretation Code Description Data Becky rce(s) Supporting Document(s) glucose, fasting 210 mg/dL 70-100 Above high normal Glucose, Fas ting JEFF ([facility]) sodium level 135 mEq/L 136-145 Below low normal Sodium Level ATHE NA ([facility]) creatinine for GFR 1.03 mg/dL 0.70-1.30 Creatinine for GF R JEFF ([facility]) blood urea nitrogen 16 mg/dL 7-18 Blood Urea Nitro gen JEFF ([facility]) glomerular filtration rate > 60.0 >60 Glomerula r Filtration Rate JEFF ([facility]) calcium level 9.7 mg/dL 8.5-10.1 Calcium Level JEFF ( [facility]) carbon dioxide level 28 mEq/L 21-32 Carbon Dioxide Level JEFF ([facility]) anion gap 6 mEq/L 8-16 Below low normal Anion Gap JEFF ( [facility]) potassium serum 4.0 mEq/L 3.5-5.1 Potassium Serum ATHE ([facility]) chloride level 101 mEq/L 98-107 Chloride Level JEFF ([facility]) ID Date Data Source [id number] 08/09/2020 12:40:00 PM EDT JEFF ([facility]) Name Value Range Interpretation Code Description Data Becky rce(s) Supporting Document(s) alkaline phosphatase 101 U/L 45-117 Alkaline Phosph atase JEFF ([facility]) ALT/SGPT 39 U/L 12-78 ALT/SGPT JEFF ([facility]) bilirubin,total 0.4 mg/dL 0.2-1.0 Bilirubin,total ATHE NA ([facility]) AST/SGOT 24 U/L 7-37 AST/SGOT JEFF ([facility]) albumin 3.9 gm/dL 3.2-5.2 Albumin JEFF ([facility]) albumin/globulin ratio Albumin/globu bianca Ratio JEFF ([facility]) total protein 7.6 gm/dL 6.4-8.2 Total Protein JEFF ( [facility]) bilirubin,direct 0.1 mg/dL 0.0-0.2 Bilirubin,direct AT [place] ([facility]) ID Date Data Source [id number] 08/09/2020 12:40:00 PM EDT JEFF ([facility]) Name Value Range Interpretation Code Description Data Becky rce(s) Supporting Document(s) red blood count 5.23 10 4.30-6.10 Red Blood Count ATHE ([facility]) white blood count 7.4 10 4.0-10.0 White Blood Count JEFF ([facility]) mean corpuscular volume 88.0 fL 80.0-96.0 Mean Corpusc ular Volume JEFF ([facility]) hematocrit 46.0 % 42.0-52.0 Hematocrit JEFF ([facility]) hemoglobin 15.5 g/dL 13.5-17.5 Hemoglobin JEFF ([facility]) mean corpuscular HGB conc 33.7 g/dL 32.0-36.5 Mean Corpu scular HGB Conc JEFF ([facility]) platelet count, automated 186 10 150-450 Platelet C ount, Automated JEFF ([facility]) mean corpuscular hemoglobin 29.6 pg 27.0-33.0 Mean Cor puscular Hemoglobin JEFF ([facility]) red cell distribution width 12.5 % 11.5-14.5 Red Cell Distribution Width JEFF ([facility]) mono % 7.6 % 0.0-5.0 Above high normal [place] % JEFF ([facility]) eos % 5.8 % 0.0-3.0 Above high normal Eos % JEFF ([facility]) neutrophils % 60.8 % 36.0-66.0 Neutrophils % JEFF ( [facility]) lymph % 23.0 % 24.0-44.0 Below low normal Lymph % [place] ( [facility]) nucleated red blood cell % 0.0 % 0-0 Nucleated Red Blood Cell % JEFF ([facility]) immature granulocyte % 1.8 % 0-3.0 Immature Gran ulocyte % JEFF ([facility]) baso % 1.0 % 0.0-1.0 Baso % JEFF ([facility]) mono # 0.6 10 0.0-0.8 [place] # JEFF ([facility]) eos # 0.4 10 0.0-0.5 Eos # JEFF ([facility]) neutrophils # 4.5 10 1.5-8.5 Neutrophils # JEFF ( [facility]) lymph # 1.7 10 1.5-5.0 Lymph # JEFF ([facility]) baso # 0.1 10 0.0-0.2 Baso # JEFF ([facility]) ID Date Data Source [id number] 08/09/2020 12:40:00 PM EDT JEFF ([facility]) Name Value Range Interpretation Code Description Data Becky rce(s) Supporting Document(s) venous partial pressure CO2 42.6 mmHg 38.0-50.0 Venous P artial Pressure CO2 JEFF ([facility]) venous pH 7.320 units 7.330-7.430 Below low normal Venous pH JEFF ([facility]) venous total CO2 22.8 mEq/L 24.0-28.0 Below low normal Venous Total CO2 JEFF ([facility]) venous base excess -2.0-2.0 Below low normal Venous Base Excess [place] ([facility]) venous partial pressure O2 62.5 mmHg 30.0-50.0 Above high nor mal Venous Partial Pressure O2 JEFF ([facility]) venous HCO3 21.5 mEq/L 23.0-27.0 Below low normal Venous HCO3 [place] ([facility]) venous standard HCO3 20.7 mEq/L Venous Standard HCO3 JEFF ([facility]) venous O2 saturation 91.2 % 60.0-80.0 Above high normal Venous O 2 Saturation [place] ([facility]) ID Date Data Source [id number] 08/09/2020 12:40:00 PM EDT [place] ([facility]) Name Value Range Interpretation Code Description Data Becky rce(s) Supporting Document(s) estimated average glucose 200 mg/dL 60-110 Above high norm al Estimated Average Glucose JEFF ([facility]) Hemoglobin A1c/Hemoglobin.total in Blood 8.6 % Hemoglobin a1C [place] ([facility]) ID Date Data Source [id number] 08/09/2020 12:40:00 PM EDT JEFF ([facility]) Name Value Range Interpretation Code Description Data Becky rce(s) Supporting Document(s) acetone/ketone 1.22 mg/dL <2.81 Acetone/ketone JEFF [facility]) ID Date Data Source [id number] 08/09/2020 12:40:00 PM EDT [place] ([facility]) Name Value Range Interpretation Code Description Data Becky rce(s) Supporting Document(s) glucose, fasting 210 mg/dL 70-100 Above high normal Glucose, Fas ting [place] ([facility]) glomerular filtration rate > 60.0 >60 Glomerula r Filtration Rate JEFF ([facility]) sodium level 135 mEq/L 136-145 Below low normal Sodium Level ATHE NA ([facility]) blood urea nitrogen 16 mg/dL 7-18 Blood Urea Nitro gen JEFF ([facility]) creatinine for GFR 1.03 mg/dL 0.70-1.30 Creatinine for GF R [place] ([facility]) potassium serum 4.0 mEq/L 3.5-5.1 Potassium Serum ATHE NA ([facility]) calcium level 9.7 mg/dL 8.5-10.1 Calcium Level [place] ( [facility]) anion gap 6 mEq/L 8-16 Below low normal Anion Gap [place] ( [facility]) chloride level 101 mEq/L 98-107 Chloride Level [place] ([facility]) carbon dioxide level 28 mEq/L 21-32 Carbon Dioxide Level [place] ([facility]) ID Date Data Source [id number] 08/09/2020 12:40:00 PM EDT [place] ([facility]) Name Value Range Interpretation Code Description Data Becky rce(s) Supporting Document(s) AST/SGOT 24 U/L 7-37 AST/SGOT [place] ([facility]) ALT/SGPT 39 U/L 12-78 ALT/SGPT [place] ([facility]) alkaline phosphatase 101 U/L 45-117 Alkaline Phosph atase [place] ([facility]) albumin 3.9 gm/dL 3.2-5.2 Albumin [place] ([facility]) bilirubin,direct 0.1 mg/dL 0.0-0.2 Bilirubin,direct AT [place] ([facility]) total protein 7.6 gm/dL 6.4-8.2 Total Protein JEFF ( [facility]) bilirubin,total 0.4 mg/dL 0.2-1.0 Bilirubin,total ATHE NA ([facility]) albumin/globulin ratio Albumin/globu bianca Ratio JEFF ([facility]) ID Date Data Source [id number] 08/09/2020 12:40:00 PM EDT JEFF ([facility]) Name Value Range Interpretation Code Description Data Becky rce(s) Supporting Document(s) red blood count 5.23 10 4.30-6.10 Red Blood Count ATHE NA ([facility]) hemoglobin 15.5 g/dL 13.5-17.5 Hemoglobin JEFF ([facility]) white blood count 7.4 10 4.0-10.0 White Blood Count JEFF ([facility]) mean corpuscular HGB conc 33.7 g/dL 32.0-36.5 Mean Corpu scular HGB Conc JEFF ([facility]) hematocrit 46.0 % 42.0-52.0 Hematocrit JEFF ([facility]) mean corpuscular hemoglobin 29.6 pg 27.0-33.0 Mean Cor puscular Hemoglobin JEFF ([facility]) mean corpuscular volume 88.0 fL 80.0-96.0 Mean Corpusc ular Volume JEFF ([facility]) neutrophils % 60.8 % 36.0-66.0 Neutrophils % JEFF ( [facility]) platelet count, automated 186 10 150-450 Platelet C ount, Automated JEFF ([facility]) red cell distribution width 12.5 % 11.5-14.5 Red Cell Distribution Width JEFF ([facility]) mono % 7.6 % 0.0-5.0 Above high normal [place] % JEFF ([facility]) eos % 5.8 % 0.0-3.0 Above high normal Eos % JFEF ([facility]) lymph % 23.0 % 24.0-44.0 Below low normal Lymph % JEFF ( [facility]) baso % 1.0 % 0.0-1.0 Baso % JEFF ([facility]) lymph # 1.7 10 1.5-5.0 Lymph # JEFF ([facility]) neutrophils # 4.5 10 1.5-8.5 Neutrophils # JEFF ( [facility]) nucleated red blood cell % 0.0 % 0-0 Nucleated Red Blood Cell % JEFF ([facility]) immature granulocyte % 1.8 % 0-3.0 Immature Gran ulocyte % JEFF ([facility]) baso # 0.1 10 0.0-0.2 Baso # JEFF ([facility]) eos # 0.4 10 0.0-0.5 Eos # JEFF ([facility]) mono # 0.6 10 0.0-0.8 [place] # JEFF ([facility]) ID Date Data Source [id number] 08/09/2020 12:40:00 PM EDT [place] ([facility]) Name Value Range Interpretation Code Description Data Becky rce(s) Supporting Document(s) venous pH 7.320 units 7.330-7.430 Below low normal Venous pH JEFF ([facility]) venous partial pressure O2 62.5 mmHg 30.0-50.0 Above high nor mal Venous Partial Pressure O2 JEFF ([facility]) venous partial pressure CO2 42.6 mmHg 38.0-50.0 Venous P artial Pressure CO2 JEFF ([facility]) venous base excess -2.0-2.0 Below low normal Venous Base Excess JEFF ([facility]) venous HCO3 21.5 mEq/L 23.0-27.0 Below low normal Venous HCO3 JEFF ([facility]) venous total CO2 22.8 mEq/L 24.0-28.0 Below low normal Venous Total CO2 JEFF ([facility]) venous O2 saturation 91.2 % 60.0-80.0 Above high normal Venous O 2 Saturation JEFF ([facility]) venous standard HCO3 20.7 mEq/L Venous Standard HCO3 JEFF ([facility]) ID Date Data Source [id number] 08/09/2020 12:40:00 PM EDT [place] ([facility]) Name Value Range Interpretation Code Description Data Becky rce(s) Supporting Document(s) Hemoglobin A1c/Hemoglobin.total in Blood 8.6 % Hemoglobin a1C [place] ([facility]) estimated average glucose 200 mg/dL 60-110 Above high norm al Estimated Average Glucose [place] ([facility]) ID Date Data Source [id number] 08/09/2020 12:40:00 PM EDT JEFF ([facility]) Name Value Range Interpretation Code Description Data Becky rce(s) Supporting Document(s) acetone/ketone 1.22 mg/dL <2.81 Acetone/ketone [place] ([facility]) ID Date Data Source [id number] 08/09/2020 12:40:00 PM EDT [place] ([facility]) Name Value Range Interpretation Code Description Data Becky rce(s) Supporting Document(s) creatinine for GFR 1.03 mg/dL 0.70-1.30 Creatinine for GF R JEFF ([facility]) glucose, fasting 210 mg/dL 70-100 Above high normal Glucose, Fas ting JEFF ([facility]) blood urea nitrogen 16 mg/dL 7-18 Blood Urea Nitro gen JEFF ([facility]) sodium level 135 mEq/L 136-145 Below low normal Sodium Level ATHE NA ([facility]) glomerular filtration rate > 60.0 >60 Glomerula r Filtration Rate JEFF ([facility]) chloride level 101 mEq/L 98-107 Chloride Level JEFF ([facility]) potassium serum 4.0 mEq/L 3.5-5.1 Potassium Serum ATHE NA ([facility]) anion gap 6 mEq/L 8-16 Below low normal Anion Gap JEFF ( [facility]) carbon dioxide level 28 mEq/L 21-32 Carbon Dioxide Level JEFF ([facility]) calcium level 9.7 mg/dL 8.5-10.1 Calcium Level JEFF ( [facility]) ID Date Data Source [id number] 08/09/2020 12:40:00 PM EDT JEFF ([facility]) Name Value Range Interpretation Code Description Data Becky rce(s) Supporting Document(s) AST/SGOT 24 U/L 7-37 AST/SGOT JEFF ([facility]) ALT/SGPT 39 U/L 12-78 ALT/SGPT JEFF ([facility]) bilirubin,direct 0.1 mg/dL 0.0-0.2 Bilirubin,direct AT [place] ([facility]) alkaline phosphatase 101 U/L 45-117 Alkaline Phosph atase JEFF ([facility]) total protein 7.6 gm/dL 6.4-8.2 Total Protein JEFF ( [facility]) bilirubin,total 0.4 mg/dL 0.2-1.0 Bilirubin,total ATHE NA ([facility]) albumin/globulin ratio Albumin/globu bianca Ratio JEFF ([facility]) albumin 3.9 gm/dL 3.2-5.2 Albumin JEFF ([facility]) ID Date Data Source [id number] 08/09/2020 12:40:00 PM EDT JEFF ([facility]) Name Value Range Interpretation Code Description Data Becky rce(s) Supporting Document(s) white blood count 7.4 10 4.0-10.0 White Blood Count JEFF ([facility]) hematocrit 46.0 % 42.0-52.0 Hematocrit JEFF ([facility]) red blood count 5.23 10 4.30-6.10 Red Blood Count ATHE NA ([facility]) hemoglobin 15.5 g/dL 13.5-17.5 Hemoglobin JEFF ([facility]) mean corpuscular hemoglobin 29.6 pg 27.0-33.0 Mean Cor puscular Hemoglobin JEFF ([facility]) mean corpuscular volume 88.0 fL 80.0-96.0 Mean Corpusc ular Volume JEFF ([facility]) mean corpuscular HGB conc 33.7 g/dL 32.0-36.5 Mean Corpu scular HGB Conc JEFF ([facility]) red cell distribution width 12.5 % 11.5-14.5 Red Cell Distribution Width JEFF ([facility]) platelet count, automated 186 10 150-450 Platelet C ount, Automated JEFF ([facility]) neutrophils % 60.8 % 36.0-66.0 Neutrophils % JEFF ( [facility]) mono % 7.6 % 0.0-5.0 Above high normal [place] % JEFF ([facility]) baso % 1.0 % 0.0-1.0 Baso % JEFF ([facility]) eos % 5.8 % 0.0-3.0 Above high normal Eos % JEFF ([facility]) lymph % 23.0 % 24.0-44.0 Below low normal Lymph % JEFF ( [facility]) immature granulocyte % 1.8 % 0-3.0 Immature Gran ulocyte % JEFF ([facility]) neutrophils # 4.5 10 1.5-8.5 Neutrophils # JEFF ( [facility]) nucleated red blood cell % 0.0 % 0-0 Nucleated Red Blood Cell % JEFF ([facility]) lymph # 1.7 10 1.5-5.0 Lymph # JEFF ([facility]) mono # 0.6 10 0.0-0.8 [place] # JEFF ([facility]) eos # 0.4 10 0.0-0.5 Eos # JEFF ([facility]) baso # 0.1 10 0.0-0.2 Baso # JEFF ([facility]) ID Date Data Source [id number] 08/09/2020 12:40:00 PM EDT JEFF ([facility]) Name Value Range Interpretation Code Description Data Becky rce(s) Supporting Document(s) venous pH 7.320 units 7.330-7.430 Below low normal Venous pH JEFF ([facility]) venous partial pressure O2 62.5 mmHg 30.0-50.0 Above high nor mal Venous Partial Pressure O2 JEFF ([facility]) venous partial pressure CO2 42.6 mmHg 38.0-50.0 Venous P artial Pressure CO2 JEFF ([facility]) venous total CO2 22.8 mEq/L 24.0-28.0 Below low normal Venous Total CO2 JEFF ([facility]) venous base excess -2.0-2.0 Below low normal Venous Base Excess JEFF ([facility]) venous HCO3 21.5 mEq/L 23.0-27.0 Below low normal Venous HCO3 [place] ([facility]) venous O2 saturation 91.2 % 60.0-80.0 Above high normal Venous O 2 Saturation [place] ([facility]) venous standard HCO3 20.7 mEq/L Venous Standard HCO3 [place] ([facility]) ID Date Data Source [id number] 08/09/2020 12:40:00 PM EDT [place] ([facility]) Name Value Range Interpretation Code Description Data Becky rce(s) Supporting Document(s) Hemoglobin A1c/Hemoglobin.total in Blood 8.6 % Hemoglobin a1C [place] ([facility]) estimated average glucose 200 mg/dL 60-110 Above high norm al Estimated Average Glucose [place] ([facility]) ID Date Data Source [id number] 08/09/2020 12:40:00 PM EDT [place] ([facility]) Name Value Range Interpretation Code Description Data Becky rce(s) Supporting Document(s) acetone/ketone 1.22 mg/dL <2.81 Acetone/ketone [place] ([facility]) ID Date Data Source [id number] 08/09/2020 12:40:00 PM EDT [place] ([facility]) Name Value Range Interpretation Code Description Data Becky rce(s) Supporting Document(s) glucose, fasting 210 mg/dL 70-100 Above high normal Glucose, Fas ting JEFF ([facility]) blood urea nitrogen 16 mg/dL 7-18 Blood Urea Nitro gen JEFF ([facility]) glomerular filtration rate > 60.0 >60 Glomerula r Filtration Rate JEFF ([facility]) creatinine for GFR 1.03 mg/dL 0.70-1.30 Creatinine for GF R JEFF ([facility]) sodium level 135 mEq/L 136-145 Below low normal Sodium Level ATHE NA ([facility]) potassium serum 4.0 mEq/L 3.5-5.1 Potassium Serum ATHE ([facility]) anion gap 6 mEq/L 8-16 Below low normal Anion Gap JEFF ( [facility]) carbon dioxide level 28 mEq/L 21-32 Carbon Dioxide Level JEFF ([facility]) chloride level 101 mEq/L 98-107 Chloride Level JEFF ([facility]) calcium level 9.7 mg/dL 8.5-10.1 Calcium Level JEFF ( [facility]) ID Date Data Source [id number] 08/09/2020 12:40:00 PM EDT JEFF ([facility]) Name Value Range Interpretation Code Description Data Becky rce(s) Supporting Document(s) AST/SGOT 24 U/L 7-37 AST/SGOT JEFF ([facility]) bilirubin,total 0.4 mg/dL 0.2-1.0 Bilirubin,total ATHE ([facility]) ALT/SGPT 39 U/L 12-78 ALT/SGPT JEFF ([facility]) alkaline phosphatase 101 U/L 45-117 Alkaline Phosph atase JEFF ([facility]) bilirubin,direct 0.1 mg/dL 0.0-0.2 Bilirubin,direct AT [place] ([facility]) total protein 7.6 gm/dL 6.4-8.2 Total Protein JEFF ( [facility]) albumin 3.9 gm/dL 3.2-5.2 Albumin JEFF ([facility]) albumin/globulin ratio Albumin/globu bianca Ratio JEFF ([facility]) ID Date Data Source [id number] 08/09/2020 12:40:00 PM EDT JEFF ([facility]) Name Value Range Interpretation Code Description Data Becky rce(s) Supporting Document(s) white blood count 7.4 10 4.0-10.0 White Blood Count JEFF ([facility]) red blood count 5.23 10 4.30-6.10 Red Blood Count ATHE ([facility]) mean corpuscular volume 88.0 fL 80.0-96.0 Mean Corpusc ular Volume JEFF ([facility]) hematocrit 46.0 % 42.0-52.0 Hematocrit JEFF ([facility]) hemoglobin 15.5 g/dL 13.5-17.5 Hemoglobin JEFF ([facility]) mean corpuscular hemoglobin 29.6 pg 27.0-33.0 Mean Cor puscular Hemoglobin JEFF ([facility]) mean corpuscular HGB conc 33.7 g/dL 32.0-36.5 Mean Corpu scular HGB Conc JEFF ([facility]) red cell distribution width 12.5 % 11.5-14.5 Red Cell Distribution Width JEFF ([facility]) lymph % 23.0 % 24.0-44.0 Below low normal Lymph % [place] ( [facility]) neutrophils % 60.8 % 36.0-66.0 Neutrophils % [place] ( [facility]) platelet count, automated 186 10 150-450 Platelet C ount, Automated JEFF ([facility]) immature granulocyte % 1.8 % 0-3.0 Immature Gran ulocyte % JEFF ([facility]) eos % 5.8 % 0.0-3.0 Above high normal Eos % JEFF ([facility]) baso % 1.0 % 0.0-1.0 Baso % JEFF ([facility]) mono % 7.6 % 0.0-5.0 Above high normal [place] % JEFF ([facility]) lymph # 1.7 10 1.5-5.0 Lymph # JEFF ([facility]) neutrophils # 4.5 10 1.5-8.5 Neutrophils # JEFF ( [facility]) nucleated red blood cell % 0.0 % 0-0 Nucleated Red Blood Cell % JEFF ([facility]) baso # 0.1 10 0.0-0.2 Baso # JEFF ([facility]) eos # 0.4 10 0.0-0.5 Eos # JEFF ([facility]) mono # 0.6 10 0.0-0.8 [place] # JEFF ([facility]) ID Date Data Source [id number] 08/09/2020 12:40:00 PM EDT JEFF ([facility]) Name Value Range Interpretation Code Description Data Becky rce(s) Supporting Document(s) venous pH 7.320 units 7.330-7.430 Below low normal Venous pH [place] ([facility]) venous partial pressure CO2 42.6 mmHg 38.0-50.0 Venous P artial Pressure CO2 JEFF ([facility]) venous partial pressure O2 62.5 mmHg 30.0-50.0 Above high nor mal Venous Partial Pressure O2 [place] ([facility]) venous base excess -2.0-2.0 Below low normal Venous Base Excess JEFF ([facility]) venous HCO3 21.5 mEq/L 23.0-27.0 Below low normal Venous HCO3 JEFF ([facility]) venous total CO2 22.8 mEq/L 24.0-28.0 Below low normal Venous Total CO2 JEFF ([facility]) venous O2 saturation 91.2 % 60.0-80.0 Above high normal Venous O 2 Saturation JEFF ([facility]) venous standard HCO3 20.7 mEq/L Venous Standard HCO3 JEFF ([facility]) ID Date Data Source [id number] 08/09/2020 12:40:00 PM EDT JEFF ([facility]) Name Value Range Interpretation Code Description Data Becky rce(s) Supporting Document(s) estimated average glucose 200 mg/dL 60-110 Above high norm al Estimated Average Glucose JEFF ([facility]) Hemoglobin A1c/Hemoglobin.total in Blood 8.6 % Hemoglobin a1C JEFF ([facility]) ID Date Data Source [id number] 08/09/2020 12:40:00 PM EDT JEFF ([facility]) Name Value Range Interpretation Code Description Data Becky rce(s) Supporting Document(s) acetone/ketone 1.22 mg/dL <2.81 Acetone/ketone [place] ([facility]) ID Date Data Source [id number] 08/09/2020 12:40:00 PM EDT [place] ([facility]) Name Value Range Interpretation Code Description Data Becky rce(s) Supporting Document(s) creatinine for GFR 1.03 mg/dL 0.70-1.30 Creatinine for GF R [place] ([facility]) glucose, fasting 210 mg/dL 70-100 Above high normal Glucose, Fas ting JEFF ([facility]) glomerular filtration rate > 60.0 >60 Glomerula r Filtration Rate JEFF ([facility]) blood urea nitrogen 16 mg/dL 7-18 Blood Urea Nitro gen JEFF ([facility]) chloride level 101 mEq/L 98-107 Chloride Level [place] ([facility]) potassium serum 4.0 mEq/L 3.5-5.1 Potassium Serum ATHE NA ([facility]) sodium level 135 mEq/L 136-145 Below low normal Sodium Level ATHE NA ([facility]) anion gap 6 mEq/L 8-16 Below low normal Anion Gap [place] ( [facility]) calcium level 9.7 mg/dL 8.5-10.1 Calcium Level JEFF ( [facility]) carbon dioxide level 28 mEq/L 21-32 Carbon Dioxide Level JEFF ([facility]) ID Date Data Source [id number] 08/09/2020 12:40:00 PM EDT [place] ([facility]) Name Value Range Interpretation Code Description Data Becky rce(s) Supporting Document(s) AST/SGOT 24 U/L 7-37 AST/SGOT JEFF ([facility]) bilirubin,total 0.4 mg/dL 0.2-1.0 Bilirubin,total ATHE NA ([facility]) alkaline phosphatase 101 U/L 45-117 Alkaline Phosph atase JEFF ([facility]) ALT/SGPT 39 U/L 12-78 ALT/SGPT JEFF ([facility]) albumin 3.9 gm/dL 3.2-5.2 Albumin JEFF ([facility]) bilirubin,direct 0.1 mg/dL 0.0-0.2 Bilirubin,direct AT [place] ([facility]) albumin/globulin ratio Albumin/globu bianca Ratio JEFF ([facility]) total protein 7.6 gm/dL 6.4-8.2 Total Protein JEFF ( [facility]) ID Date Data Source [id number] 08/09/2020 12:40:00 PM EDT JEFF ([facility]) Name Value Range Interpretation Code Description Data Becky rce(s) Supporting Document(s) white blood count 7.4 10 4.0-10.0 White Blood Count JEFF ([facility]) red blood count 5.23 10 4.30-6.10 Red Blood Count ATHE ([facility]) mean corpuscular volume 88.0 fL 80.0-96.0 Mean Corpusc ular Volume JEFF ([facility]) hemoglobin 15.5 g/dL 13.5-17.5 Hemoglobin JEFF ([facility]) hematocrit 46.0 % 42.0-52.0 Hematocrit JEFF ([facility]) mean corpuscular HGB conc 33.7 g/dL 32.0-36.5 Mean Corpu scular HGB Conc JEFF ([facility]) red cell distribution width 12.5 % 11.5-14.5 Red Cell Distribution Width JEFF ([facility]) mean corpuscular hemoglobin 29.6 pg 27.0-33.0 Mean Cor puscular Hemoglobin JEFF ([facility]) platelet count, automated 186 10 150-450 Platelet C ount, Automated JEFF ([facility]) lymph % 23.0 % 24.0-44.0 Below low normal Lymph % JEFF ( [facility]) neutrophils % 60.8 % 36.0-66.0 Neutrophils % JEFF ( [facility]) immature granulocyte % 1.8 % 0-3.0 Immature Gran ulocyte % JEFF ([facility]) eos % 5.8 % 0.0-3.0 Above high normal Eos % JEFF ([facility]) mono % 7.6 % 0.0-5.0 Above high normal [place] % JEFF ([facility]) baso % 1.0 % 0.0-1.0 Baso % JEFF ([facility]) lymph # 1.7 10 1.5-5.0 Lymph # JEFF ([facility]) nucleated red blood cell % 0.0 % 0-0 Nucleated Red Blood Cell % JEFF ([facility]) neutrophils # 4.5 10 1.5-8.5 Neutrophils # JEFF ( [facility]) eos # 0.4 10 0.0-0.5 Eos # JEFF ([facility]) mono # 0.6 10 0.0-0.8 [place] # JEFF ([facility]) baso # 0.1 10 0.0-0.2 Baso # JEFF ([facility]) ID Date Data Source [id number] 08/09/2020 12:40:00 PM EDT [place] ([facility]) Name Value Range Interpretation Code Description Data Becky rce(s) Supporting Document(s) venous pH 7.320 units 7.330-7.430 Below low normal Venous pH [place] ([facility]) venous partial pressure CO2 42.6 mmHg 38.0-50.0 Venous P artial Pressure CO2 [place] ([facility]) venous partial pressure O2 62.5 mmHg 30.0-50.0 Above high nor mal Venous Partial Pressure O2 [place] ([facility]) venous total CO2 22.8 mEq/L 24.0-28.0 Below low normal Venous Total CO2 JE[facility] ([facility]) venous base excess -2.0-2.0 Below low normal Venous Base Excess [place] ([facility]) venous HCO3 21.5 mEq/L 23.0-27.0 Below low normal Venous HCO3 [place] ([facility]) venous O2 saturation 91.2 % 60.0-80.0 Above high normal Venous O 2 Saturation [place] ([facility]) venous standard HCO3 20.7 mEq/L Venous Standard HCO3 [place] ([facility]) ID Date Data Source [id number] 08/09/2020 12:40:00 PM EDT [facility]) Name Value Range Interpretation Code Description Data Becky rce(s) Supporting Document(s) Hemoglobin A1c/Hemoglobin.total in Blood 8.6 % Hemoglobin a1C [place] ([facility]) estimated average glucose 200 mg/dL 60-110 Above high norm al Estimated Average Glucose [place] ([facility]) ID Date Data Source [id number] 08/09/2020 12:40:00 PM EDT [place] ([facility]) Name Value Range Interpretation Code Description Data Becky rce(s) Supporting Document(s) acetone/ketone 1.22 mg/dL <2.81 Acetone/ketone [place] ([facility]) ID Date Data Source [id number] 08/09/2020 12:40:00 PM EDT [place] ([facility]) Name Value Range Interpretation Code Description Data Becky rce(s) Supporting Document(s) glucose, fasting 210 mg/dL 70-100 Above high normal Glucose, Fas ting [place] ([facility]) glomerular filtration rate > 60.0 >60 Glomerula r Filtration Rate [place] ([facility]) blood urea nitrogen 16 mg/dL 7-18 Blood Urea Nitro gen [place] ([facility]) creatinine for GFR 1.03 mg/dL 0.70-1.30 Creatinine for GF R [place] ([facility]) potassium serum 4.0 mEq/L 3.5-5.1 Potassium Serum ATHE NA ([facility]) carbon dioxide level 28 mEq/L 21-32 Carbon Dioxide Level JEFF ([facility]) chloride level 101 mEq/L 98-107 Chloride Level JEFF ([facility]) sodium level 135 mEq/L 136-145 Below low normal Sodium Level ATHE NA ([facility]) calcium level 9.7 mg/dL 8.5-10.1 Calcium Level JEFF ( [facility]) anion gap 6 mEq/L 8-16 Below low normal Anion Gap JEFF ( [facility]) ID Date Data Source [id number] 08/09/2020 12:40:00 PM EDT JEFF ([facility]) Name Value Range Interpretation Code Description Data Becky rce(s) Supporting Document(s) AST/SGOT 24 U/L 7-37 AST/SGOT JE[facility] ([facility]) alkaline phosphatase 101 U/L 45-117 Alkaline Phosph atase JEFF ([facility]) ALT/SGPT 39 U/L 12-78 ALT/SGPT JEFF ([facility]) bilirubin,direct 0.1 mg/dL 0.0-0.2 Bilirubin,direct AT [place] ([facility]) bilirubin,total 0.4 mg/dL 0.2-1.0 Bilirubin,total ATHE ([facility]) total protein 7.6 gm/dL 6.4-8.2 Total Protein JEFF ( [facility]) albumin/globulin ratio Albumin/globu bianca Ratio JEFF ([facility]) albumin 3.9 gm/dL 3.2-5.2 Albumin JEFF ([facility]) ID Date Data Source [id number] 08/09/2020 12:40:00 PM EDT JEFF ([facility]) Name Value Range Interpretation Code Description Data Becky rce(s) Supporting Document(s) red blood count 5.23 10 4.30-6.10 Red Blood Count ATHE ([facility]) white blood count 7.4 10 4.0-10.0 White Blood Count JEFF ([facility]) mean corpuscular volume 88.0 fL 80.0-96.0 Mean Corpusc ular Volume JEFF ([facility]) hemoglobin 15.5 g/dL 13.5-17.5 Hemoglobin JEFF ([facility]) hematocrit 46.0 % 42.0-52.0 Hematocrit JEFF ([facility]) red cell distribution width 12.5 % 11.5-14.5 Red Cell Distribution Width JEFF ([facility]) mean corpuscular HGB conc 33.7 g/dL 32.0-36.5 Mean Corpu scular HGB Conc JEFF ([facility]) mean corpuscular hemoglobin 29.6 pg 27.0-33.0 Mean Cor puscular Hemoglobin JEFF ([facility]) platelet count, automated 186 10 150-450 Platelet C ount, Automated JEFF ([facility]) lymph % 23.0 % 24.0-44.0 Below low normal Lymph % JEFF ( [facility]) neutrophils % 60.8 % 36.0-66.0 Neutrophils % JEFF ( [facility]) mono % 7.6 % 0.0-5.0 Above high normal [place] % [place] ([facility]) immature granulocyte % 1.8 % 0-3.0 Immature Gran ulocyte % JEFF ([facility]) eos % 5.8 % 0.0-3.0 Above high normal Eos % JEFF ([facility]) baso % 1.0 % 0.0-1.0 Baso % JEFF ([facility]) lymph # 1.7 10 1.5-5.0 Lymph # JEFF ([facility]) neutrophils # 4.5 10 1.5-8.5 Neutrophils # JEFF ( [facility]) nucleated red blood cell % 0.0 % 0-0 Nucleated Red Blood Cell % JEFF ([facility]) mono # 0.6 10 0.0-0.8 [place] # JEFF ([facility]) baso # 0.1 10 0.0-0.2 Baso # JEFF ([facility]) eos # 0.4 10 0.0-0.5 Eos # JEFF ([facility]) ID Date Data Source [id number] 08/09/2020 12:40:00 PM EDT JEFF ([facility]) Name Value Range Interpretation Code Description Data Becky rce(s) Supporting Document(s) venous partial pressure CO2 42.6 mmHg 38.0-50.0 Venous P artial Pressure CO2 JEFF ([facility]) venous pH 7.320 units 7.330-7.430 Below low normal Venous pH [place] ([facility]) venous partial pressure O2 62.5 mmHg 30.0-50.0 Above high nor mal Venous Partial Pressure O2 JEFF ([facility]) venous total CO2 22.8 mEq/L 24.0-28.0 Below low normal Venous Total CO2 [place] ([facility]) venous base excess -2.0-2.0 Below low normal Venous Base Excess JE[facility] ([facility]) venous standard HCO3 20.7 mEq/L Venous Standard HCO3 JE[facility] ([facility]) venous HCO3 21.5 mEq/L 23.0-27.0 Below low normal Venous HCO3 [place] ([facility]) venous O2 saturation 91.2 % 60.0-80.0 Above high normal Venous O 2 Saturation [place] ([facility]) ID Date Data Source [id number] 08/09/2020 12:40:00 PM EDT JEFF ([facility]) Name Value Range Interpretation Code Description Data Becky rce(s) Supporting Document(s) Hemoglobin A1c/Hemoglobin.total in Blood 8.6 % Hemoglobin a1C JEFF ([facility]) estimated average glucose 200 mg/dL 60-110 Above high norm al Estimated Average Glucose [place] ([facility]) ID Date Data Source [id number] 08/09/2020 12:40:00 PM EDT JEFF ([facility]) Name Value Range Interpretation Code Description Data Becky rce(s) Supporting Document(s) Hemoglobin A1c/Hemoglobin.total in Blood 8.6 % Hemoglobin a1C JEFF ([facility]) estimated average glucose 200 mg/dL 60-110 Above high norm al Estimated Average Glucose [place] ([facility]) ID Date Data Source [id number] 08/09/2020 12:40:00 PM EDT JEFF ([facility]) Name Value Range Interpretation Code Description Data Becky rce(s) Supporting Document(s) acetone/ketone 1.22 mg/dL <2.81 Acetone/ketone [place] ([facility]) ID Date Data Source [id number] 08/09/2020 12:40:00 PM EDT [place] ([facility]) Name Value Range Interpretation Code Description Data Becky rce(s) Supporting Document(s) glucose, fasting 210 mg/dL 70-100 Above high normal Glucose, Fas ting JEFF ([facility]) sodium level 135 mEq/L 136-145 Below low normal Sodium Level ATHE NA ([facility]) blood urea nitrogen 16 mg/dL 7-18 Blood Urea Nitro gen JEFF ([facility]) creatinine for GFR 1.03 mg/dL 0.70-1.30 Creatinine for GF R JEFF ([facility]) glomerular filtration rate > 60.0 >60 Glomerula r Filtration Rate JEFF ([facility]) carbon dioxide level 28 mEq/L 21-32 Carbon Dioxide Level JEFF ([facility]) chloride level 101 mEq/L 98-107 Chloride Level JEFF ([facility]) potassium serum 4.0 mEq/L 3.5-5.1 Potassium Serum ATHE NA ([facility]) anion gap 6 mEq/L 8-16 Below low normal Anion Gap JEFF ( [facility]) calcium level 9.7 mg/dL 8.5-10.1 Calcium Level [place] ( [facility]) ID Date Data Source [id number] 08/09/2020 12:40:00 PM EDT JEFF ([facility]) Name Value Range Interpretation Code Description Data Becky rce(s) Supporting Document(s) alkaline phosphatase 101 U/L 45-117 Alkaline Phosph atase JEFF ([facility]) ALT/SGPT 39 U/L 12-78 ALT/SGPT [facility] ([facility]) AST/SGOT 24 U/L 7-37 AST/SGOT JE[facility] ([facility]) bilirubin,total 0.4 mg/dL 0.2-1.0 Bilirubin,total ATHE NA ([facility]) bilirubin,direct 0.1 mg/dL 0.0-0.2 Bilirubin,direct AT [place] ([facility]) total protein 7.6 gm/dL 6.4-8.2 Total Protein JEFF ( [facility]) albumin 3.9 gm/dL 3.2-5.2 Albumin JEFF ([facility]) albumin/globulin ratio Albumin/globu bianca Ratio JEFF ([facility]) ID Date Data Source [id number] 08/09/2020 12:40:00 PM EDT JEFF ([facility]) Name Value Range Interpretation Code Description Data Becky rce(s) Supporting Document(s) white blood count 7.4 10 4.0-10.0 White Blood Count JEFF ([facility]) red blood count 5.23 10 4.30-6.10 Red Blood Count ATHE NA ([facility]) hematocrit 46.0 % 42.0-52.0 Hematocrit JEFF ([facility]) hemoglobin 15.5 g/dL 13.5-17.5 Hemoglobin JEFF ([facility]) mean corpuscular volume 88.0 fL 80.0-96.0 Mean Corpusc ular Volume JEFF ([facility]) mean corpuscular hemoglobin 29.6 pg 27.0-33.0 Mean Cor puscular Hemoglobin JEFF ([facility]) mean corpuscular HGB conc 33.7 g/dL 32.0-36.5 Mean Corpu scular HGB Conc JEFF ([facility]) platelet count, automated 186 10 150-450 Platelet C ount, Automated JEFF ([facility]) red cell distribution width 12.5 % 11.5-14.5 Red Cell Distribution Width JEFF ([facility]) lymph % 23.0 % 24.0-44.0 Below low normal Lymph % JEFF ( [facility]) neutrophils % 60.8 % 36.0-66.0 Neutrophils % JEFF ( [facility]) mono % 7.6 % 0.0-5.0 Above high normal [place] % JEFF ([facility]) baso % 1.0 % 0.0-1.0 Baso % [place] ([facility]) eos % 5.8 % 0.0-3.0 Above high normal Eos % [place] ([facility]) immature granulocyte % 1.8 % 0-3.0 Immature Gran ulocyte % [place] ([facility]) nucleated red blood cell % 0.0 % 0-0 Nucleated Red Blood Cell % [place] ([facility]) neutrophils # 4.5 10 1.5-8.5 Neutrophils # JEFF ( [facility]) lymph # 1.7 10 1.5-5.0 Lymph # JEFF ([facility]) mono # 0.6 10 0.0-0.8 [place] # JEFF ([facility]) eos # 0.4 10 0.0-0.5 Eos # JEFF ([facility]) baso # 0.1 10 0.0-0.2 Baso # JEFF ([facility]) ID Date Data Source [id number] 08/09/2020 12:40:00 PM EDT [place] ([facility]) Name Value Range Interpretation Code Description Data Becky rce(s) Supporting Document(s) venous pH 7.320 units 7.330-7.430 Below low normal Venous pH JEFF ([facility]) venous partial pressure CO2 42.6 mmHg 38.0-50.0 Venous P artial Pressure CO2 [place] ([facility]) venous partial pressure O2 62.5 mmHg 30.0-50.0 Above high nor mal Venous Partial Pressure O2 JE[place] ([facility]) venous base excess -2.0-2.0 Below low normal Venous Base Excess [place] ([facility]) venous HCO3 21.5 mEq/L 23.0-27.0 Below low normal Venous HCO3 [place] ([facility]) venous total CO2 22.8 mEq/L 24.0-28.0 Below low normal Venous Total CO2 [place] ([facility]) venous O2 saturation 91.2 % 60.0-80.0 Above high normal Venous O 2 Saturation [place] ([facility]) venous standard HCO3 20.7 mEq/L Venous Standard HCO3 [place] ([facility]) ID Date Data Source [id number] 08/09/2020 11:49:00 AM EDT [facility]) Name Value Range Interpretation Code Description Data Becky rce(s) Supporting Document(s) bedside glucose 233 mg/dL 70-105 Above high normal Bedside Gluco se [facility]) ID Date Data Source [id number] 08/09/2020 11:49:00 AM EDT [facility]) Name Value Range Interpretation Code Description Data Becky rce(s) Supporting Document(s) bedside glucose 233 mg/dL 70-105 Above high normal Bedside Gluco se [facility]) ID Date Data Source [id number] 08/09/2020 11:49:00 AM EDT [facility]) Name Value Range Interpretation Code Description Data Becky rce(s) Supporting Document(s) bedside glucose 233 mg/dL 70-105 Above high normal Bedside Gluco se [facility]) ID Date Data Source [id number] 08/09/2020 11:49:00 AM EDT [facility]) Name Value Range Interpretation Code Description Data Becky rce(s) Supporting Document(s) bedside glucose 233 mg/dL 70-105 Above high normal Bedside Gluco se [place] ([facility]) ID Date Data Source [id number] 08/09/2020 11:49:00 AM EDT [facility]) Name Value Range Interpretation Code Description Data Becky rce(s) Supporting Document(s) bedside glucose 233 mg/dL 70-105 Above high normal Bedside Gluco se JEFF ([facility]) ID Date Data Source [id number] 08/09/2020 11:49:00 AM EDT [facility]) Name Value Range Interpretation Code Description Data Becky rce(s) Supporting Document(s) bedside glucose 233 mg/dL 70-105 Above high normal Bedside Gluco se [place] ([facility]) ID Date Data Source [id number] 08/09/2020 11:49:00 AM EDT [facility]) Name Value Range Interpretation Code Description Data Becky rce(s) Supporting Document(s) bedside glucose 233 mg/dL 70-105 Above high normal [facility] Data Source [id number] 08/09/2020 11:49:00 AM EDT [facility]) Name Value Range Interpretation Code Description Data Becky rce(s) Supporting Document(s) bedside glucose 233 mg/dL 70-105 Above high normal Bedside Gluco se [facility]) ID Date Data Source [id number] 08/09/2020 11:49:00 AM EDT [facility]) Name Value Range Interpretation Code Description Data Becky rce(s) Supporting Document(s) bedside glucose 233 mg/dL 70-105 Above high normal Bedside Gluco se [facility]) ID Date Data Source [id number] 08/09/2020 11:49:00 AM EDT [facility]) Name Value Range Interpretation Code Description Data Becky rce(s) Supporting Document(s) bedside glucose 233 mg/dL 70-105 Above high normal Bedside Gluco se [place] ([facility]) ID Date Data Source [id number] 08/09/2020 11:49:00 AM EDT [facility]) Name Value Range Interpretation Code Description Data Becky rce(s) Supporting Document(s) bedside glucose 233 mg/dL 70-105 Above high normal Bedside Gluco se [facility]) ID Date Data Source [id number] 08/09/2020 11:49:00 AM EDT [facility]) Name Value Range Interpretation Code Description Data Becky rce(s) Supporting Document(s) bedside glucose 233 mg/dL 70-105 Above high normal Bedside Gluco se [facility]) ID Date Data Source [id number] 08/09/2020 11:49:00 AM EDT [facility]) Name Value Range Interpretation Code Description Data Becky rce(s) Supporting Document(s) bedside glucose 233 mg/dL 70-105 Above high normal Bedside Gluco se [facility]) ID Date Data Source [id number] 08/09/2020 11:49:00 AM EDT [facility]) Name Value Range Interpretation Code Description Data Becky rce(s) Supporting Document(s) bedside glucose 233 mg/dL 70-105 Above high normal Bedside Gluco se [facility]) ID Date Data Source [id number] 08/09/2020 11:49:00 AM EDT [facility]) Name Value Range Interpretation Code Description Data Becky rce(s) Supporting Document(s) bedside glucose 233 mg/dL 70-105 Above high normal Bedside Gluco se [facility]) ID Date Data Source [id number] 08/09/2020 11:49:00 AM EDT [facility]) Name Value Range Interpretation Code Description Data Becky rce(s) Supporting Document(s) bedside glucose 233 mg/dL 70-105 Above high normal Bedside Gluco se [facility]) ID Date Data Source [id number] 08/09/2020 11:49:00 AM EDT [facility]) Name Value Range Interpretation Code Description Data Becky rce(s) Supporting Document(s) bedside glucose 233 mg/dL 70-105 Above high normal Bedside Gluco se [facility]) ID Date Data Source [id number] 08/09/2020 12:00:00 AM EDT [facility]) Name Value Range Interpretation Code Description Data Becky rce(s) Supporting Document(s) ID Date Data Source [id number] 07/28/2020 01:20:[address] [facility] Measurements & CalculationsHeight: 68 inches (5 ft. [...] during this visit, including review of any [id number] medications, herbal therapies, and/or supplements.Allergy ReviewAllergy List [...] Plan Problems:Assessed:Type 2 diabetes mellitus without complications ([id number]) Assessment: Instructions: Suboptimal control.Increase Basaglar from 20 [...] MG ORAL TABLET EXTENDED RELEASEVITAMIN D (ERGOCALCIFEROL) 53619 UNIT ORAL CAPSULEMedication Changes:Added: METFORMIN HCL ER [...] (Moderate)Orders:Adult - Ofc Vst, EST, Level III [CPT-65232] COMP METABOLIC PANEL [CPT-30013] HgBA1c [CPT-42970] LIPID PANEL [CPT-81973] TSH [CPT-54842] T-4 free [CPT-70980] Name Value Range Interpretation Code Description Data Becky rce(s) Supporting Document(s) Procedure Social History Code Duration Value Status Description Data Source(s ) Smoking 07/02/2021 12:00:00 AM EDT Unknown if ever smoked comp leted Unknown if ever smoked [facility] ([facility]) Smoking 06/14/2021 12:00:00 AM EDT Unknown if ever smoked comp leted Unknown if ever smoked [facility] ([facility]) Smoking 05/31/2021 12:00:00 AM EDT Unknown if ever smoked comp leted Unknown if ever smoked [facility] ([facility]) Smoking 05/30/2021 12:00:00 AM EDT Unknown if ever smoked comp leted Unknown if ever smoked [facility] ([facility]) Smoking 05/01/2021 12:00:00 AM EDT Unknown if ever smoked comp leted Unknown if ever smoked [facility] ([facility]) Smoking 03/26/2021 12:00:00 AM EDT Unknown if ever smoked comp leted Unknown if ever smoked [facility] ([facility]) Smoking 02/26/2021 12:00:00 AM EDT Unknown if ever smoked comp leted Unknown if ever smoked [facility] ([facility]) Smoking 02/07/2021 12:00:00 AM EDT Unknown if ever smoked comp leted Unknown if ever smoked [facility] ([facility]) Smoking 01/18/2021 12:00:00 AM EDT Unknown if ever smoked comp leted Unknown if ever smoked [facility] ([facility]) Smoking 12/28/2020 12:00:00 AM EDT Unknown if ever smoked comp leted Unknown if ever smoked [facility] ([facility]) Smoking 12/11/2020 12:00:00 AM EST Unknown if ever smoked comp leted Unknown if ever smoked [facility] ([facility]) Smoking 12/07/2020 12:00:00 AM EST Unknown if ever smoked comp leted Unknown if ever smoked [facility] ([facility]) Smoking 11/07/2020 12:00:00 AM EST Unknown if ever smoked comp leted Unknown if ever smoked [facility] ([facility]) Smoking 10/25/2020 12:00:00 AM EST Unknown if ever smoked comp leted Unknown if ever smoked [facility] ([facility]) Smoking 10/20/2020 12:00:00 AM EST Unknown if ever smoked comp leted Unknown if ever smoked [facility] ([facility]) Smoking 09/28/2020 12:00:00 AM EST Unknown if ever smoked comp leted Unknown if ever smoked [facility] ([facility]) Smoking 09/21/2020 12:00:00 AM EST Unknown if ever smoked comp leted Unknown if ever smoked [facility] ([facility]) Smoking 09/11/2020 12:00:00 AM EST Unknown if ever smoked comp leted Unknown if ever smoked [facility] ([facility]) Smoking 08/24/2020 12:00:00 AM EST Unknown if ever smoked comp leted Unknown if ever smoked [facility] ([facility]) Smoking 08/17/2020 12:00:00 AM EST Unknown if ever smoked comp leted Unknown if ever smoked [facility] ([facility]) Smoking 07/25/2020 12:00:00 AM EDT Unknown if ever smoked comp leted Unknown if ever smoked [facility] ([facility]) Smoking 07/20/2020 12:00:00 AM EDT Unknown if ever smoked comp leted Unknown if ever smoked [facility] ([facility]) Smoking 07/06/2020 12:00:00 AM EDT Unknown if ever smoked comp leted Unknown if ever smoked [facility] ([facility]) Vital Signs ID Date Data Source UNK Name Value Range Interpretation Code Description Data Source(s) Diastolic blood pressure 78 mm[Hg] 78 mm[Hg] JEFF ([facility]) Body height 68 [in_i] 68 [in_i] JEFF ([facility]) Body mass index (BMI) [Ratio] 37.9 kg/m2 37.9 k g/m2 JEFF ([facility]) Systolic blood pressure 109 mm[Hg] 109 mm[Hg] A THENA ([facility]) Body weight 3992 [oz_av] 3992 [oz_av] JEFF ([facility]) Diastolic blood pressure 90 mm[Hg] 90 mm[Hg] JEFF ([facility]) Body height 68 [in_i] 68 [in_i] JEFF ([facility]) Body mass index (BMI) [Ratio] 38.9 kg/m2 38.9 k g/m2 JEFF ([facility]) Systolic blood pressure 135 mm[Hg] 135 mm[Hg] A THENA ([facility]) Body weight 4096 [oz_av] 4096 [oz_av] JEFF ([facility]) Diastolic blood pressure 90 mm[Hg] 90 mm[Hg] JEFF ([facility]) Body height 68 [in_i] 68 [in_i] JEFF ([facility]) Body mass index (BMI) [Ratio] 38.9 kg/m2 38.9 k g/m2 JEFF ([facility]) Systolic blood pressure 135 mm[Hg] 135 mm[Hg] [facility] Body weight 4096 [oz_av] 4096 [oz_av] JEFF ([facility]) Diastolic blood pressure 94 mm[Hg] 94 mm[Hg] JEFF ([facility]) Body height 68 [in_i] 68 [in_i] JEFF ([facility]) Body mass index (BMI) [Ratio] 39.4 kg/m2 39.4 k g/m2 JEFF ([facility]) Systolic blood pressure 135 mm[Hg] 135 mm[Hg] A THENA ([facility]) Body weight 4150 [oz_av] 4150 [oz_av] JEFF ([facility]) Diastolic blood pressure 94 mm[Hg] 94 mm[Hg] JEFF ([facility]) Body height 68 [in_i] 68 [in_i] JEFF ([facility]) Body mass index (BMI) [Ratio] 39.4 kg/m2 39.4 k g/m2 JEFF ([facility]) Systolic blood pressure 135 mm[Hg] 135 mm[Hg] A THENA ([facility]) Body weight 4150 [oz_av] 4150 [oz_av] JEFF ([facility]) Diastolic blood pressure 94 mm[Hg] 94 mm[Hg] JEFF ([facility]) Body height 68 [in_i] 68 [in_i] JEFF ([facility]) Body mass index (BMI) [Ratio] 39.4 kg/m2 39.4 k g/m2 JEFF ([facility]) Systolic blood pressure 135 mm[Hg] 135 mm[Hg] A THENA ([facility]) Body weight 4150 [oz_av] 4150 [oz_av] JEFF ([facility]) Diastolic blood pressure 88 mm[Hg] 88 mm[Hg] JEFF ([facility]) Body height 68 [in_i] 68 [in_i] JEFF ([facility]) Body mass index (BMI) [Ratio] 39.4 kg/m2 39.4 k g/m2 JEFF ([facility]) Systolic blood pressure 129 mm[Hg] 129 mm[Hg] A THENA ([facility]) Body weight 4150 [oz_av] 4150 [oz_av] JEFF ([facility]) Body mass index (BMI) [Ratio] 39.4 kg/m2 39.4 k g/m2 JEFF ([facility]) Body weight 4150 [oz_av] 4150 [oz_av] JEFF ([facility]) Systolic blood pressure 129 mm[Hg] 129 mm[Hg] A THENA ([facility]) Diastolic blood pressure 88 mm[Hg] 88 mm[Hg] JEFF ([facility]) Body height 68 [in_i] 68 [in_i] JEFF ([facility]) Diastolic blood pressure 88 mm[Hg] 88 mm[Hg] JEFF ([facility]) Body height 68 [in_i] 68 [in_i] JEFF ([facility]) Body mass index (BMI) [Ratio] 39.4 kg/m2 39.4 k g/m2 JEFF ([facility]) Systolic blood pressure 129 mm[Hg] 129 mm[Hg] A THENA ([facility]) Body weight 4150 [oz_av] 4150 [oz_av] JEFF ([facility]) Diastolic blood pressure 88 mm[Hg] 88 mm[Hg] JEFF ([facility]) Body height 68 [in_i] 68 [in_i] JEFF ([facility]) Body mass index (BMI) [Ratio] 39.4 kg/m2 39.4 k g/m2 JEFF ([facility]) Systolic blood pressure 129 mm[Hg] 129 mm[Hg] A HARISA ([facility]) Body weight 4150 [oz_av] 4150 [oz_av] JEFF ([facility]) Diastolic blood pressure 88 mm[Hg] 88 mm[Hg] JEFF ([facility]) Body height 68 [in_i] 68 [in_i] JEFF ([facility]) Body mass index (BMI) [Ratio] 39.4 kg/m2 39.4 k g/m2 JEFF ([facility]) Systolic blood pressure 129 mm[Hg] 129 mm[Hg] A HARISA ([facility]) Body weight 4150 [oz_av] 4150 [oz_av] JEFF ([facility]) Diastolic blood pressure 88 mm[Hg] 88 mm[Hg] JEFF ([facility]) Body height 68 [in_i] 68 [in_i] JEFF ([facility]) Body mass index (BMI) [Ratio] 39.4 kg/m2 39.4 k g/m2 JEFF ([facility]) Systolic blood pressure 129 mm[Hg] 129 mm[Hg] A HARISA ([facility]) Body weight 4150 [oz_av] 4150 [oz_av] JEFF ([facility]) Body weight 172.00 [lb_av] 172.00 [lb_av] MEDEN T ([facility] Systolic blood pressure 123 mm[Hg] 123 mm[Hg] M EDENT ([facility] Diastolic blood pressure 82 mm[Hg] 82 mm[Hg] MED[facility] ([facility] Heart rate 85 /min 85 /min MEDENT ([facility] Diastolic blood pressure 82 mm[Hg] 82 mm[Hg] JEFF ([facility]) Body height 68 [in_i] 68 [in_i] JEFF ([facility]) Body mass index (BMI) [Ratio] 39.4 kg/m2 39.4 k g/m2 JEFF ([facility]) Systolic blood pressure 123 mm[Hg] 123 mm[Hg] [facility] Body weight 4150 [oz_av] 4150 [oz_av] JEFF ([facility]) Diastolic blood pressure 82 mm[Hg] 82 mm[Hg] JEFF ([facility]) Body height 68 [in_i] 68 [in_i] JEFF ([facility]) Body mass index (BMI) [Ratio] 39.4 kg/m2 39.4 k g/m2 JEFF ([facility]) Systolic blood pressure 123 mm[Hg] 123 mm[Hg] A [facility] ([facility]) Body weight 4150 [oz_av] 4150 [oz_av] JEFF ([facility]) Diastolic blood pressure 82 mm[Hg] 82 mm[Hg] JEFF ([facility]) Body height 68 [in_i] 68 [in_i] JEFF ([facility]) Body mass index (BMI) [Ratio] 39.4 kg/m2 39.4 k g/m2 JEFF ([facility]) Systolic blood pressure 123 mm[Hg] 123 mm[Hg] [facility] Body weight 4150 [oz_av] 4150 [oz_av] JEFF ([facility]) Diastolic blood pressure 82 mm[Hg] 82 mm[Hg] JEFF ([facility]) Body height 68 [in_i] 68 [in_i] JEFF ([facility]) Body mass index (BMI) [Ratio] 39.4 kg/m2 39.4 k g/m2 JEFF ([facility]) Systolic blood pressure 123 mm[Hg] 123 mm[Hg] [facility] Body weight 4150 [oz_av] 4150 [oz_av] JEFF ([facility]) Systolic blood pressure 123 mm[Hg] 123 mm[Hg] [facility] Diastolic blood pressure 82 mm[Hg] 82 mm[Hg] JEFF ([facility]) Body height 68 [in_i] 68 [in_i] JEFF ([facility]) Body mass index (BMI) [Ratio] 39.4 kg/m2 39.4 k g/m2 JEFF ([facility]) Body weight 4150 [oz_av] 4150 [oz_av] JEFF ([facility]) Diastolic blood pressure 82 mm[Hg] 82 mm[Hg] JEFF ([facility]) Body height 68 [in_i] 68 [in_i] JEFF ([facility]) Body mass index (BMI) [Ratio] 39.4 kg/m2 39.4 k g/m2 JEFF ([facility]) Systolic blood pressure 123 mm[Hg] 123 mm[Hg] A THENA ([facility]) Body weight 4150 [oz_av] 4150 [oz_av] JEFF ([facility]) Diastolic blood pressure 82 mm[Hg] 82 mm[Hg] JEFF ([facility]) Body height 68 [in_i] 68 [in_i] JEFF ([facility]) Body mass index (BMI) [Ratio] 39.4 kg/m2 39.4 k g/m2 JEFF ([facility]) Systolic blood pressure 123 mm[Hg] 123 mm[Hg] A THENA ([facility]) Body weight 4150 [oz_av] 4150 [oz_av] JEFF ([facility]) Body height 68 [in_i] 68 [in_i] JEFF ([facility]) Body height 68 [in_i] 68 [in_i] JEFF ([facility]) Body height 68 [in_i] 68 [in_i] JEFF ([facility]) Body height 68 [in_i] 68 [in_i] JEFF ([facility]) Body height 68 [in_i] 68 [in_i] JEFF ([facility]) Body height 68 [in_i] 68 [in_i] JEFF ([facility]) Body height 68 [in_i] 68 [in_i] JEFF ([facility]) Body height 68 [in_i] 68 [in_i] JEFF ([facility]) Body height 68 [in_i] 68 [in_i] JEFF ([facility]) Body mass index (BMI) [Ratio] 0.00 kg/m2 No rmal (applies to non-numeric results) 0.00 kg/m2 [facility] ([facility]) Body height 0.00 in Normal (applies to non-numeric resu lts) 0.00 in [facility] ([facility]) Body weight Measured 0.00 lbs Normal (applies to n on-numeric results) 0.00 lbs [facility] ([facility]) Diastolic blood pressure 0 mm[Hg] Normal (applies to non-numeric results) 0 mm[Hg] [facility] ([facility]) Systolic blood pressure 0 mm[Hg] Normal (applies t o non-numeric results) 0 mm[Hg] [facility] ([facility]) Body weight 257 [lb_av] 257 [lb_av] eCW1 ([facility]) Body height 68 [in_i] 68 [in_i] eCW1 ([facility]) Body mass index (BMI) [Ratio] 39.07 kg/m2 39.07 kg/m2 [facility] ([facility]) Oxygen saturation in Arterial blood by Pulse oximetry 92 % 92 % [facility] ([facility] ) Body weight 258.50 [lb_av] 258.50 [lb_av] MEDEN T ([facility] ) Systolic blood pressure 110 mm[Hg] 110 mm[Hg] M EDENT ([facility] ) Diastolic blood pressure 78 mm[Hg] 78 mm[Hg] [facility] ([facility] ) Heart rate 90 /min 90 /min [facility] ([facility] ) Body temperature 97.1 [degF] 97.1 [degF] [facility] ([facility] ) Body height 68 [in_i] 68 [in_i] [facility] ([facility] ) 5'8" Body mass index (BMI) [Ratio] 39.3 kg/m2 39.3 k g/m2 [facility] ([facility] ) Body weight 3334 [oz_av] 3334 [oz_av] JEFF ([facility]) Body height 68 [in_i] 68 [in_i] JEFF ([facility]) Body mass index (BMI) [Ratio] 31.7 kg/m2 31.7 k g/m2 JEFF ([facility]) Systolic blood pressure 121 mm[Hg] 121 mm[Hg] A [facility] ([facility]) Diastolic blood pressure 85 mm[Hg] 85 mm[Hg] JEFF ([facility]) Body mass index (BMI) [Ratio] 31.7 kg/m2 31.7 k g/m2 JEFF ([facility]) Body height 68 [in_i] 68 [in_i] JEFF ([facility]) Diastolic blood pressure 85 mm[Hg] 85 mm[Hg] JEFF ([facility]) Systolic blood pressure 121 mm[Hg] 121 mm[Hg] A THEN ([facility]) Body weight 3334 [oz_av] 3334 [oz_av] JEFF ([facility]) Diastolic blood pressure 85 mm[Hg] 85 mm[Hg] JEFF ([facility]) Body height 68 [in_i] 68 [in_i] JEFF ([facility]) Body mass index (BMI) [Ratio] 31.7 kg/m2 31.7 k g/m2 JEFF ([facility]) Systolic blood pressure 121 mm[Hg] 121 mm[Hg] A THENA ([facility]) Body weight 3334 [oz_av] 3334 [oz_av] JEFF ([facility]) Diastolic blood pressure 85 mm[Hg] 85 mm[Hg] JEFF ([facility]) Body height 68 [in_i] 68 [in_i] JEFF ([facility]) Body mass index (BMI) [Ratio] 31.7 kg/m2 31.7 k g/m2 JEFF ([facility]) Systolic blood pressure 121 mm[Hg] 121 mm[Hg] A THEN ([facility]) Body weight 3334 [oz_av] 3334 [oz_av] JEFF ([facility]) Diastolic blood pressure 85 mm[Hg] 85 mm[Hg] JEFF ([facility]) Body height 68 [in_i] 68 [in_i] JEFF ([facility]) Body mass index (BMI) [Ratio] 31.7 kg/m2 31.7 k g/m2 JEFF ([facility]) Systolic blood pressure 121 mm[Hg] 121 mm[Hg] A THENA ([facility]) Body weight 3334 [oz_av] 3334 [oz_av] JEFF ([facility]) Diastolic blood pressure 85 mm[Hg] 85 mm[Hg] JEFF ([facility]) Body height 68 [in_i] 68 [in_i] JEFF ([facility]) Body mass index (BMI) [Ratio] 31.7 kg/m2 31.7 k g/m2 JEFF ([facility]) Systolic blood pressure 121 mm[Hg] 121 mm[Hg] A THENA ([facility]) Body weight 3334 [oz_av] 3334 [oz_av] JEFF ([facility]) Diastolic blood pressure 85 mm[Hg] 85 mm[Hg] JEFF ([facility]) Body height 68 [in_i] 68 [in_i] JEFF ([facility]) Body mass index (BMI) [Ratio] 31.7 kg/m2 31.7 k g/m2 JEFF ([facility]) Systolic blood pressure 121 mm[Hg] 121 mm[Hg] A THENA ([facility]) Body weight 3334 [oz_av] 3334 [oz_av] JEFF ([facility]) Diastolic blood pressure 85 mm[Hg] 85 mm[Hg] JEFF ([facility]) Body height 68 [in_i] 68 [in_i] JEFF ([facility]) Body mass index (BMI) [Ratio] 31.7 kg/m2 31.7 k g/m2 JEFF ([facility]) Systolic blood pressure 121 mm[Hg] 121 mm[Hg] A THENA ([facility]) Body weight 3334 [oz_av] 3334 [oz_av] JEFF ([facility]) Diastolic blood pressure 85 mm[Hg] 85 mm[Hg] JEFF ([facility]) Body height 68 [in_i] 68 [in_i] JEFF ([facility]) Systolic blood pressure 121 mm[Hg] 121 mm[Hg] A [facility] ([facility]) Body mass index (BMI) [Ratio] 31.7 kg/m2 31.7 k g/m2 JEFF ([facility]) Body weight 3334 [oz_av] 3334 [oz_av] JEFF ([facility]) Diastolic blood pressure 85 mm[Hg] 85 mm[Hg] JEFF ([facility]) Body height 68 [in_i] 68 [in_i] JEFF ([facility]) Body mass index (BMI) [Ratio] 31.7 kg/m2 31.7 k g/m2 JEFF ([facility]) Systolic blood pressure 121 mm[Hg] 121 mm[Hg] A THENA ([facility]) Body weight 3334 [oz_av] 3334 [oz_av] JEFF ([facility]) Diastolic blood pressure 85 mm[Hg] 85 mm[Hg] JEFF ([facility]) Body height 68 [in_i] 68 [in_i] JEFF ([facility]) Body mass index (BMI) [Ratio] 31.7 kg/m2 31.7 k g/m2 JEFF ([facility]) Systolic blood pressure 121 mm[Hg] 121 mm[Hg] A THENA ([facility]) Body weight 3334 [oz_av] 3334 [oz_av] JEFF ([facility]) Diastolic blood pressure 85 mm[Hg] 85 mm[Hg] JEFF ([facility]) Body height 68 [in_i] 68 [in_i] JEFF ([facility]) Body mass index (BMI) [Ratio] 31.7 kg/m2 31.7 k g/m2 JEFF ([facility]) Systolic blood pressure 121 mm[Hg] 121 mm[Hg] A [facility] ([facility]) Body weight 3334 [oz_av] 3334 [oz_av] JEFF ([facility]) Body weight 260.6 [lb_av] 260.6 [lb_av] eCW1 ([facility]) Body height 68 [in_i] 68 [in_i] eCW1 ([facility]) Body mass index (BMI) [Ratio] 39.62 kg/m2 39.62 kg/m2 W1 ([facility]) Diastolic blood pressure 0 mm[Hg] Normal (applies to non-numeric results) 0 mm[Hg] [facility] ([facility]) Body height 0.00 in Normal (applies to non-numeric resu lts) 0.00 in [facility] ([facility]) Body weight Measured 0.00 lbs Normal (applies to n on-numeric results) 0.00 lbs [facility] ([facility]) Body mass index (BMI) [Ratio] 0.00 kg/m2 No rmal (applies to non-numeric results) 0.00 kg/m2 [facility] ([facility]) Systolic blood pressure 0 mm[Hg] Normal (applies t o non-numeric results) 0 mm[Hg] [facility] ([facility]) Diastolic blood pressure 84 mm[Hg] 84 mm[Hg] [facility] ([facility] ) Heart rate 87 /min 87 /min [facility] ([facility] ) Body temperature 96.4 [degF] 96.4 [degF] [facility] ([facility] ) Body weight 263.31 [lb_av] 263.31 [lb_av] MEDEN T ([facility] ) Body mass index (BMI) [Ratio] 40.0 kg/m2 40.0 k g/m2 [facility] ([facility] ) Oxygen saturation in Arterial blood by Pulse oximetry 97 % 97 % [facility] ([facility] ) Systolic blood pressure 122 mm[Hg] 122 mm[Hg] M EDENT ([facility] ) Body height 68 [in_i] 68 [in_i] MEDENT ([facility] ) 5'8" Body height 68 [in_i] 68 [in_i] JEFF ([facility]) Body mass index (BMI) [Ratio] 40 kg/m2 40 kg/ m2 JEFF ([facility]) Systolic blood pressure 115 mm[Hg] 115 mm[Hg] [facility] Body weight 4208 [oz_av] 4208 [oz_av] JEFF ([facility]) Diastolic blood pressure 78 mm[Hg] 78 mm[Hg] JEFF ([facility]) Diastolic blood pressure 78 mm[Hg] 78 mm[Hg] JEFF ([facility]) Body height 68 [in_i] 68 [in_i] JEFF ([facility]) Body mass index (BMI) [Ratio] 40 kg/m2 40 kg/ m2 EJFF ([facility]) Systolic blood pressure 115 mm[Hg] 115 mm[Hg] [facility] Body weight 4208 [oz_av] 4208 [oz_av] JEFF ([facility]) Diastolic blood pressure 78 mm[Hg] 78 mm[Hg] JEFF ([facility]) Body height 68 [in_i] 68 [in_i] JEFF ([facility]) Body mass index (BMI) [Ratio] 40 kg/m2 40 kg/ m2 JEFF ([facility]) Systolic blood pressure 115 mm[Hg] 115 mm[Hg] [facility] Body weight 4208 [oz_av] 4208 [oz_av] JEFF ([facility]) Diastolic blood pressure 78 mm[Hg] 78 mm[Hg] JEFF ([facility]) Body height 68 [in_i] 68 [in_i] JEFF ([facility]) Body mass index (BMI) [Ratio] 40 kg/m2 40 kg/ m2 JEFF ([facility]) Systolic blood pressure 115 mm[Hg] 115 mm[Hg] [facility] Body weight 4208 [oz_av] 4208 [oz_av] JEFF ([facility]) Diastolic blood pressure 78 mm[Hg] 78 mm[Hg] JEFF ([facility]) Body height 68 [in_i] 68 [in_i] JEFF ([facility]) Body mass index (BMI) [Ratio] 40 kg/m2 40 kg/ m2 JEFF ([facility]) Systolic blood pressure 115 mm[Hg] 115 mm[Hg] [facility] Body weight 4208 [oz_av] 4208 [oz_av] JEFF ([facility]) Body mass index (BMI) [Ratio] 40 kg/m2 40 kg/ m2 JEFF ([facility]) Body height 68 [in_i] 68 [in_i] JEFF ([facility]) Diastolic blood pressure 78 mm[Hg] 78 mm[Hg] JEFF ([facility]) Systolic blood pressure 115 mm[Hg] 115 mm[Hg] A THENA ([facility]) Body weight 4208 [oz_av] 4208 [oz_av] JEFF ([facility]) Diastolic blood pressure 78 mm[Hg] 78 mm[Hg] JEFF ([facility]) Body height 68 [in_i] 68 [in_i] JEFF ([facility]) Body mass index (BMI) [Ratio] 40 kg/m2 40 kg/ m2 JEFF ([facility]) Systolic blood pressure 115 mm[Hg] 115 mm[Hg] A THENA ([facility]) Body weight 4208 [oz_av] 4208 [oz_av] JEFF ([facility]) Diastolic blood pressure 78 mm[Hg] 78 mm[Hg] JEFF ([facility]) Body height 68 [in_i] 68 [in_i] JEFF ([facility]) Body mass index (BMI) [Ratio] 40 kg/m2 40 kg/ m2 JEFF ([facility]) Systolic blood pressure 115 mm[Hg] 115 mm[Hg] [facility] Body weight 4208 [oz_av] 4208 [oz_av] JEFF ([facility]) Diastolic blood pressure 78 mm[Hg] 78 mm[Hg] JFEF ([facility]) Body height 68 [in_i] 68 [in_i] JEFF ([facility]) Body mass index (BMI) [Ratio] 40 kg/m2 40 kg/ m2 JEFF ([facility]) Systolic blood pressure 115 mm[Hg] 115 mm[Hg] [facility] Body weight 4208 [oz_av] 4208 [oz_av] JEFF ([facility]) Diastolic blood pressure 78 mm[Hg] 78 mm[Hg] JEFF ([facility]) Body height 68 [in_i] 68 [in_i] JEFF ([facility]) Body mass index (BMI) [Ratio] 40 kg/m2 40 kg/ m2 JEFF ([facility]) Systolic blood pressure 115 mm[Hg] 115 mm[Hg] [facility] Body weight 4208 [oz_av] 4208 [oz_av] JEFF ([facility]) Diastolic blood pressure 78 mm[Hg] 78 mm[Hg] JEFF ([facility]) Body height 68 [in_i] 68 [in_i] JEFF ([facility]) Body mass index (BMI) [Ratio] 40 kg/m2 40 kg/ m2 JEFF ([facility]) Systolic blood pressure 115 mm[Hg] 115 mm[Hg] [facility] Body weight 4208 [oz_av] 4208 [oz_av] JEFF ([facility]) Diastolic blood pressure 78 mm[Hg] 78 mm[Hg] JEFF ([facility]) Body height 68 [in_i] 68 [in_i] JEFF ([facility]) Body mass index (BMI) [Ratio] 40 kg/m2 40 kg/ m2 JEFF ([facility]) Systolic blood pressure 115 mm[Hg] 115 mm[Hg] [facility] Body weight 4208 [oz_av] 4208 [oz_av] JEFF ([facility]) Diastolic blood pressure 78 mm[Hg] 78 mm[Hg] JEFF ([facility]) Body height 68 [in_i] 68 [in_i] JEFF ([facility]) Body mass index (BMI) [Ratio] 40 kg/m2 40 kg/ m2 JEFF ([facility]) Systolic blood pressure 115 mm[Hg] 115 mm[Hg] [facility] Body weight 4208 [oz_av] 4208 [oz_av] JEFF ([facility]) Diastolic blood pressure 78 mm[Hg] 78 mm[Hg] JEFF ([facility]) Body height 68 [in_i] 68 [in_i] JEFF ([facility]) Body mass index (BMI) [Ratio] 40 kg/m2 40 kg/ m2 JEFF ([facility]) Systolic blood pressure 115 mm[Hg] 115 mm[Hg] A THENA ([facility]) Body weight 4208 [oz_av] 4208 [oz_av] JEFF ([facility]) Systolic blood pressure 125 mm[Hg] 125 mm[Hg] M EDENT ([facility] Body height 68 [in_i] 68 [in_i] MEDENT ([facility] 5'8" Body weight 260.00 [lb_av] 260.00 [lb_av] MEDEN T ([facility] Diastolic blood pressure 83 mm[Hg] 83 mm[Hg] MEDENT ([facility] Heart rate 92 /min 92 /min MEDENT ([facility] Body mass index (BMI) [Ratio] 39.5 kg/m2 39.5 k g/m2 MEDENT ([facility] Body height 0.00 in Normal (applies to non-numeric resu lts) 0.00 in [facility] ([facility]) Body weight Measured 0.00 lbs Normal (applies to n on-numeric results) 0.00 lbs [facility] ([facility]) Body mass index (BMI) [Ratio] 0.00 kg/m2 No rmal (applies to non-numeric results) 0.00 kg/m2 [facility] ([facility]) Systolic blood pressure 0 mm[Hg] Normal (applies t o non-numeric results) 0 mm[Hg] Accumedic ([facility]) Diastolic blood pressure 0 mm[Hg] Normal (applies to non-numeric results) 0 mm[Hg] Accumedic ([facility]) Diastolic blood pressure 83 mm[Hg] 83 mm[Hg] JEFF ([facility]) Body height 68 [in_i] 68 [in_i] JEFF ([facility]) Body mass index (BMI) [Ratio] 39.6 kg/m2 39.6 k g/m2 JEFF ([facility]) Systolic blood pressure 125 mm[Hg] 125 mm[Hg] A [facility] ([facility]) Body weight 4164 [oz_av] 4164 [oz_av] JEFF ([facility]) Diastolic blood pressure 83 mm[Hg] 83 mm[Hg] JEFF ([facility]) Body height 68 [in_i] 68 [in_i] JEFF ([facility]) Body mass index (BMI) [Ratio] 39.6 kg/m2 39.6 k g/m2 JEFF ([facility]) Systolic blood pressure 125 mm[Hg] 125 mm[Hg] A [facility] ([facility]) Body weight 4164 [oz_av] 4164 [oz_av] JEFF ([facility]) Body mass index (BMI) [Ratio] 39.6 kg/m2 39.6 k g/m2 JEFF ([facility]) Diastolic blood pressure 83 mm[Hg] 83 mm[Hg] JEFF ([facility]) Body height 68 [in_i] 68 [in_i] JEFF ([facility]) Systolic blood pressure 125 mm[Hg] 125 mm[Hg] A [facility] ([facility]) Body weight 4164 [oz_av] 4164 [oz_av] JEFF ([facility]) Systolic blood pressure 125 mm[Hg] 125 mm[Hg] A [facility] ([facility]) Body weight 4164 [oz_av] 4164 [oz_av] JEFF ([facility]) Diastolic blood pressure 83 mm[Hg] 83 mm[Hg] JEFF ([facility]) Body height 68 [in_i] 68 [in_i] JEFF ([facility]) Body mass index (BMI) [Ratio] 39.6 kg/m2 39.6 k g/m2 JEFF ([facility]) Diastolic blood pressure 83 mm[Hg] 83 mm[Hg] JEFF ([facility]) Body height 68 [in_i] 68 [in_i] JEFF ([facility]) Body mass index (BMI) [Ratio] 39.6 kg/m2 39.6 k g/m2 JEFF ([facility]) Systolic blood pressure 125 mm[Hg] 125 mm[Hg] A [facility] ([facility]) Body weight 4164 [oz_av] 4164 [oz_av] JEFF ([facility]) Diastolic blood pressure 83 mm[Hg] 83 mm[Hg] JEFF ([facility]) Body height 68 [in_i] 68 [in_i] JEFF ([facility]) Body mass index (BMI) [Ratio] 39.6 kg/m2 39.6 k g/m2 JEFF ([facility]) Systolic blood pressure 125 mm[Hg] 125 mm[Hg] A THENA ([facility]) Body weight 4164 [oz_av] 4164 [oz_av] JEFF ([facility]) Body mass index (BMI) [Ratio] 39.6 kg/m2 39.6 k g/m2 JEFF ([facility]) Systolic blood pressure 125 mm[Hg] 125 mm[Hg] A THENA ([facility]) Body weight 4164 [oz_av] 4164 [oz_av] JEFF ([facility]) Diastolic blood pressure 83 mm[Hg] 83 mm[Hg] JEFF ([facility]) Body height 68 [in_i] 68 [in_i] JEFF ([facility]) Diastolic blood pressure 83 mm[Hg] 83 mm[Hg] JEFF ([facility]) Body height 68 [in_i] 68 [in_i] JEFF ([facility]) Body mass index (BMI) [Ratio] 39.6 kg/m2 39.6 k g/m2 JEFF ([facility]) Systolic blood pressure 125 mm[Hg] 125 mm[Hg] A THENA ([facility]) Body weight 4164 [oz_av] 4164 [oz_av] JEFF ([facility]) Diastolic blood pressure 83 mm[Hg] 83 mm[Hg] JEFF ([facility]) Body height 68 [in_i] 68 [in_i] JEFF ([facility]) Body mass index (BMI) [Ratio] 39.6 kg/m2 39.6 k g/m2 JEFF ([facility]) Systolic blood pressure 125 mm[Hg] 125 mm[Hg] A THENA ([facility]) Body weight 4164 [oz_av] 4164 [oz_av] JEFF ([facility]) Diastolic blood pressure 83 mm[Hg] 83 mm[Hg] JEFF ([facility]) Body height 68 [in_i] 68 [in_i] JEFF ([facility]) Body mass index (BMI) [Ratio] 39.6 kg/m2 39.6 k g/m2 JEFF ([facility]) Systolic blood pressure 125 mm[Hg] 125 mm[Hg] A THENA ([facility]) Body weight 4164 [oz_av] 4164 [oz_av] JEFF ([facility]) Diastolic blood pressure 83 mm[Hg] 83 mm[Hg] JEFF ([facility]) Body height 68 [in_i] 68 [in_i] JEFF ([facility]) Body mass index (BMI) [Ratio] 39.6 kg/m2 39.6 k g/m2 JEFF ([facility]) Systolic blood pressure 125 mm[Hg] 125 mm[Hg] A THENA ([facility]) Body weight 4164 [oz_av] 4164 [oz_av] JEFF ([facility]) Diastolic blood pressure 83 mm[Hg] 83 mm[Hg] JEFF ([facility]) Body height 68 [in_i] 68 [in_i] JEFF ([facility]) Body mass index (BMI) [Ratio] 39.6 kg/m2 39.6 k g/m2 JEFF ([facility]) Systolic blood pressure 125 mm[Hg] 125 mm[Hg] A THENA ([facility]) Body weight 4164 [oz_av] 4164 [oz_av] JEFF ([facility]) Diastolic blood pressure 83 mm[Hg] 83 mm[Hg] JEFF ([facility]) Body height 68 [in_i] 68 [in_i] JEFF ([facility]) Body mass index (BMI) [Ratio] 39.6 kg/m2 39.6 k g/m2 JEFF ([facility]) Systolic blood pressure 125 mm[Hg] 125 mm[Hg] A THENA ([facility]) Body weight 4164 [oz_av] 4164 [oz_av] JEFF ([facility]) Diastolic blood pressure 83 mm[Hg] 83 mm[Hg] JEFF ([facility]) Body height 68 [in_i] 68 [in_i] JEFF ([facility]) Body mass index (BMI) [Ratio] 39.6 kg/m2 39.6 k g/m2 JEFF ([facility]) Systolic blood pressure 125 mm[Hg] 125 mm[Hg] A THENA ([facility]) Body weight 4164 [oz_av] 4164 [oz_av] JEFF ([facility]) Diastolic blood pressure 83 mm[Hg] 83 mm[Hg] JEFF ([facility]) Body height 68 [in_i] 68 [in_i] JEFF ([facility]) Body mass index (BMI) [Ratio] 39.6 kg/m2 39.6 k g/m2 JEFF ([facility]) Systolic blood pressure 125 mm[Hg] 125 mm[Hg] A THENA ([facility]) Body weight 4164 [oz_av] 4164 [oz_av] JEFF ([facility]) Body weight Measured 0.00 lbs Normal (applies to n on-numeric results) 0.00 lbs [facility] ([facility]) Body mass index (BMI) [Ratio] 0.00 kg/m2 No rmal (applies to non-numeric results) 0.00 kg/m2 [facility] ([facility]) Systolic blood pressure 142 mm[Hg] Normal (applies t o non-numeric results) 142 mm[Hg] Accumedic ([facility]) Diastolic blood pressure 78 mm[Hg] Normal (applies to non-numeric results) 78 mm[Hg] Accumedic ([facility]) Body height 0.00 in Normal (applies to non-numeric resu lts) 0.00 in [facility] ([facility]) Systolic blood pressure 126 mm[Hg] 126 mm[Hg] M EDENT ([facility]) Diastolic blood pressure 70 mm[Hg] 70 mm[Hg] MEDENT ([facility] Heart rate 77 /min 77 /min MEDENT ([facility] Oxygen saturation in Arterial blood by Pulse oximetry 98 % 98 % MEDENT ([facility] Body temperature 97.8 [degF] 97.8 [degF] MEDENT ([facility] Body height 68 [in_i] 68 [in_i] MEDENT ([facility]) 5'8" Body weight 268.44 [lb_av] 268.44 [lb_av] MEDEN T ([facility]) Body mass index (BMI) [Ratio] 40.8 kg/m2 40.8 k g/m2 MEDENT ([facility] ) Diastolic blood pressure 88 mm[Hg] 88 mm[Hg] JEFF ([facility]) Body height 68 [in_i] 68 [in_i] JEFF ([facility]) Body mass index (BMI) [Ratio] 40 kg/m2 40 kg/ m2 JEFF ([facility]) Systolic blood pressure 124 mm[Hg] 124 mm[Hg] A THENA ([facility]) Body weight 4214 [oz_av] 4214 [oz_av] JEFF ([facility]) Diastolic blood pressure 88 mm[Hg] 88 mm[Hg] JEFF ([facility]) Body height 68 [in_i] 68 [in_i] JEFF ([facility]) Body mass index (BMI) [Ratio] 40 kg/m2 40 kg/ m2 JEFF ([facility]) Systolic blood pressure 124 mm[Hg] 124 mm[Hg] [facility] Body weight 4214 [oz_av] 4214 [oz_av] JEFF ([facility]) Diastolic blood pressure 88 mm[Hg] 88 mm[Hg] JEFF ([facility]) Body height 68 [in_i] 68 [in_i] JEFF ([facility]) Body mass index (BMI) [Ratio] 40 kg/m2 40 kg/ m2 JEFF ([facility]) Systolic blood pressure 124 mm[Hg] 124 mm[Hg] A THENA ([facility]) Body weight 4214 [oz_av] 4214 [oz_av] JEFF ([facility]) Diastolic blood pressure 88 mm[Hg] 88 mm[Hg] JEFF ([facility]) Body height 68 [in_i] 68 [in_i] JEFF ([facility]) Body mass index (BMI) [Ratio] 40 kg/m2 40 kg/ m2 JEFF ([facility]) Systolic blood pressure 124 mm[Hg] 124 mm[Hg] [facility] Body weight 4214 [oz_av] 4214 [oz_av] JEFF ([facility]) Diastolic blood pressure 88 mm[Hg] 88 mm[Hg] JEFF ([facility]) Body height 68 [in_i] 68 [in_i] JEFF ([facility]) Body mass index (BMI) [Ratio] 40 kg/m2 40 kg/ m2 JEFF ([facility]) Systolic blood pressure 124 mm[Hg] 124 mm[Hg] [facility]) Body weight 4214 [oz_av] 4214 [oz_av] JEFF ([facility]) Diastolic blood pressure 88 mm[Hg] 88 mm[Hg] JEFF ([facility]) Body height 68 [in_i] 68 [in_i] JEFF ([facility]) Body mass index (BMI) [Ratio] 40 kg/m2 40 kg/ m2 JEFF ([facility]) Systolic blood pressure 124 mm[Hg] 124 mm[Hg] [facility] Body weight 4214 [oz_av] 4214 [oz_av] JEFF ([facility]) Diastolic blood pressure 88 mm[Hg] 88 mm[Hg] JEFF ([facility]) Body height 68 [in_i] 68 [in_i] JEFF ([facility]) Body mass index (BMI) [Ratio] 40 kg/m2 40 kg/ m2 JEFF ([facility]) Systolic blood pressure 124 mm[Hg] 124 mm[Hg] A THENA ([facility]) Body weight 4214 [oz_av] 4214 [oz_av] JEFF ([facility]) Diastolic blood pressure 88 mm[Hg] 88 mm[Hg] JEFF ([facility]) Body height 68 [in_i] 68 [in_i] JEFF ([facility]) Body mass index (BMI) [Ratio] 40 kg/m2 40 kg/ m2 JEFF ([facility]) Systolic blood pressure 124 mm[Hg] 124 mm[Hg] A THENA ([facility]) Body weight 4214 [oz_av] 4214 [oz_av] JEFF ([facility]) Diastolic blood pressure 88 mm[Hg] 88 mm[Hg] JEFF ([facility]) Body height 68 [in_i] 68 [in_i] JEFF ([facility]) Body weight 4214 [oz_av] 4214 [oz_av] JEFF ([facility]) Body mass index (BMI) [Ratio] 40 kg/m2 40 kg/ m2 JEFF ([facility]) Systolic blood pressure 124 mm[Hg] 124 mm[Hg] A THENA ([facility]) Diastolic blood pressure 88 mm[Hg] 88 mm[Hg] JEFF ([facility]) Body height 68 [in_i] 68 [in_i] JEFF ([facility]) Body mass index (BMI) [Ratio] 40 kg/m2 40 kg/ m2 JEFF ([facility]) Systolic blood pressure 124 mm[Hg] 124 mm[Hg] A THENA ([facility]) Body weight 4214 [oz_av] 4214 [oz_av] JEFF ([facility]) Diastolic blood pressure 88 mm[Hg] 88 mm[Hg] JEFF ([facility]) Body height 68 [in_i] 68 [in_i] JEFF ([facility]) Body mass index (BMI) [Ratio] 40 kg/m2 40 kg/ m2 JEFF ([facility]) Systolic blood pressure 124 mm[Hg] 124 mm[Hg] A THENA ([facility]) Body weight 4214 [oz_av] 4214 [oz_av] JEFF ([facility]) Diastolic blood pressure 88 mm[Hg] 88 mm[Hg] JEFF ([facility]) Body height 68 [in_i] 68 [in_i] JEFF ([facility]) Body mass index (BMI) [Ratio] 40 kg/m2 40 kg/ m2 JEFF ([facility]) Systolic blood pressure 124 mm[Hg] 124 mm[Hg] A THEN ([facility]) Body weight 4214 [oz_av] 4214 [oz_av] JEFF ([facility]) Diastolic blood pressure 88 mm[Hg] 88 mm[Hg] JEFF ([facility]) Body height 68 [in_i] 68 [in_i] JEFF ([facility]) Body mass index (BMI) [Ratio] 40 kg/m2 40 kg/ m2 JEFF ([facility]) Systolic blood pressure 124 mm[Hg] 124 mm[Hg] A THENA ([facility]) Body weight 4214 [oz_av] 4214 [oz_av] JEFF ([facility]) Body weight 4214 [oz_av] 4214 [oz_av] JEFF ([facility]) Diastolic blood pressure 88 mm[Hg] 88 mm[Hg] JEFF ([facility]) Body height 68 [in_i] 68 [in_i] JEFF ([facility]) Body mass index (BMI) [Ratio] 40 kg/m2 40 kg/ m2 JEFF ([facility]) Systolic blood pressure 124 mm[Hg] 124 mm[Hg] A THEN ([facility]) Diastolic blood pressure 88 mm[Hg] 88 mm[Hg] JEFF ([facility]) Body height 68 [in_i] 68 [in_i] JEFF ([facility]) Body mass index (BMI) [Ratio] 40 kg/m2 40 kg/ m2 JEFF ([facility]) Systolic blood pressure 124 mm[Hg] 124 mm[Hg] [facility] Body weight 4214 [oz_av] 4214 [oz_av] JEFF ([facility]) Diastolic blood pressure 88 mm[Hg] 88 mm[Hg] JEFF ([facility]) Body height 68 [in_i] 68 [in_i] JEFF ([facility]) Body mass index (BMI) [Ratio] 40 kg/m2 40 kg/ m2 JEFF ([facility]) Systolic blood pressure 124 mm[Hg] 124 mm[Hg] A [facility] ([facility]) Body weight 4214 [oz_av] 4214 [oz_av] JEFF ([facility]) Diastolic blood pressure 88 mm[Hg] 88 mm[Hg] JEFF ([facility]) Body height 68 [in_i] 68 [in_i] JEFF ([facility]) Body mass index (BMI) [Ratio] 40 kg/m2 40 kg/ m2 JEFF ([facility]) Systolic blood pressure 124 mm[Hg] 124 mm[Hg] [facility] Body weight 4214 [oz_av] 4214 [oz_av] JEFF ([facility]) Diastolic blood pressure 83 mm[Hg] 83 mm[Hg] JEFF ([facility]) Body height 68 [in_i] 68 [in_i] JEFF ([facility]) Body mass index (BMI) [Ratio] 40.31 kg/m2 40.31 kg/m2 JEFF ([facility]) Systolic blood pressure 134 mm[Hg] 134 mm[Hg] [facility] Body weight 4226.08 [oz_av] 4226.08 [oz_av] ATH ALVARO ([facility]) Diastolic blood pressure 83 mm[Hg] 83 mm[Hg] JEFF ([facility]) Body height 68 [in_i] 68 [in_i] JEFF ([facility]) Body mass index (BMI) [Ratio] 40.31 kg/m2 40.31 kg/m2 JEFF ([facility]) Systolic blood pressure 134 mm[Hg] 134 mm[Hg] [facility] Body weight 4226.08 [oz_av] 4226.08 [oz_av] ATH ALVARO ([facility]) Diastolic blood pressure 83 mm[Hg] 83 mm[Hg] JEFF ([facility]) Body height 68 [in_i] 68 [in_i] JEFF ([facility]) Body mass index (BMI) [Ratio] 40.31 kg/m2 40.31 kg/m2 JEFF ([facility]) Systolic blood pressure 134 mm[Hg] 134 mm[Hg] [facility] Body weight 4226.08 [oz_av] 4226.08 [oz_av] ATH ALVARO ([facility]) Diastolic blood pressure 83 mm[Hg] 83 mm[Hg] JEFF ([facility]) Body height 68 [in_i] 68 [in_i] JEFF ([facility]) Body mass index (BMI) [Ratio] 40.31 kg/m2 40.31 kg/m2 JEFF ([facility]) Systolic blood pressure 134 mm[Hg] 134 mm[Hg] A THENA ([facility]) Body weight 4226.08 [oz_av] 4226.08 [oz_av] ATH ALVARO ([facility]) Diastolic blood pressure 83 mm[Hg] 83 mm[Hg] JEFF ([facility]) Body height 68 [in_i] 68 [in_i] JEFF ([facility]) Body mass index (BMI) [Ratio] 40.31 kg/m2 40.31 kg/m2 JEFF ([facility]) Systolic blood pressure 134 mm[Hg] 134 mm[Hg] A THENA ([facility]) Body weight 4226.08 [oz_av] 4226.08 [oz_av] ATH ALVARO ([facility]) Body height 68 [in_i] 68 [in_i] JEFF ([facility]) Body weight 4226.08 [oz_av] 4226.08 [oz_av] ATH ALVARO ([facility]) Systolic blood pressure 134 mm[Hg] 134 mm[Hg] [facility] Body mass index (BMI) [Ratio] 40.31 kg/m2 40.31 kg/m2 JEFF ([facility]) Diastolic blood pressure 83 mm[Hg] 83 mm[Hg] JEFF ([facility]) Diastolic blood pressure 83 mm[Hg] 83 mm[Hg] JEFF ([facility]) Body height 68 [in_i] 68 [in_i] JEFF ([facility]) Body mass index (BMI) [Ratio] 40.31 kg/m2 40.31 kg/m2 JEFF ([facility]) Systolic blood pressure 134 mm[Hg] 134 mm[Hg] A [facility] ([facility]) Body weight 4226.08 [oz_av] 4226.08 [oz_av] ATH ALVARO ([facility]) Diastolic blood pressure 83 mm[Hg] 83 mm[Hg] JEFF ([facility]) Body height 68 [in_i] 68 [in_i] JEFF ([facility]) Body mass index (BMI) [Ratio] 40.31 kg/m2 40.31 kg/m2 JEFF ([facility]) Systolic blood pressure 134 mm[Hg] 134 mm[Hg] [facility] Body weight 4226.08 [oz_av] 4226.08 [oz_av] ATH ALVARO ([facility]) Diastolic blood pressure 83 mm[Hg] 83 mm[Hg] JEFF ([facility]) Body height 68 [in_i] 68 [in_i] JEFF ([facility]) Body mass index (BMI) [Ratio] 40.31 kg/m2 40.31 kg/m2 JEFF ([facility]) Systolic blood pressure 134 mm[Hg] 134 mm[Hg] [facility] Body weight 4226.08 [oz_av] 4226.08 [oz_av] ATH ALVARO ([facility]) Body mass index (BMI) [Ratio] 40.31 kg/m2 40.31 kg/m2 JEFF ([facility]) Systolic blood pressure 134 mm[Hg] 134 mm[Hg] A THENA ([facility]) Body weight 4226.08 [oz_av] 4226.08 [oz_av] ATH ALVARO ([facility]) Diastolic blood pressure 83 mm[Hg] 83 mm[Hg] JEFF ([facility]) Body height 68 [in_i] 68 [in_i] JEFF ([facility]) Diastolic blood pressure 83 mm[Hg] 83 mm[Hg] JEFF ([facility]) Body height 68 [in_i] 68 [in_i] JEFF ([facility]) Body mass index (BMI) [Ratio] 40.31 kg/m2 40.31 kg/m2 JEFF ([facility]) Systolic blood pressure 134 mm[Hg] 134 mm[Hg] A THENA ([facility]) Body weight 4226.08 [oz_av] 4226.08 [oz_av] ATH ALVARO ([facility]) Body height 0.00 in Normal (applies to non-numeric resu lts) 0.00 in [facility] ([facility]) Systolic blood pressure 0 mm[Hg] Normal (applies t o non-numeric results) 0 mm[Hg] [facility] ([facility]) Body mass index (BMI) [Ratio] 0.00 kg/m2 No rmal (applies to non-numeric results) 0.00 kg/m2 [facility] ([facility]) Diastolic blood pressure 0 mm[Hg] Normal (applies to non-numeric results) 0 mm[Hg] [facility] ([facility]) Body weight Measured 0.00 lbs Normal (applies to n on-numeric results) 0.00 lbs [facility] ([facility]) Patient Treatment Plan of Care Planned Activity Planned Date Details Description Data Source (s) Alcohol Prep Pads 06/20/2021 12:00:00 AM EDT JEFF ([facility]) ziprasidone 60 MG Oral Capsule JEFF ([facility]) Ergocalciferol 62280 UNT Oral Capsule JEFF ([facility]) 0.5 ML dulaglutide 1.5 MG/ML Auto-Injector [Trulicity] JEFF ([facility]) Triamcinolone Acetonide 1 MG/ML Topical Cream JEFF ([facility]) Trazodone Hydrochloride 50 MG Oral Tablet JEFF ([facility]) Steglatro 5 mg tablet JEFF ([facility]) Simvastatin 10 MG Oral Tablet JEFF ([facility]) Docusate Sodium 50 MG / sennosides, RETIREMENT 8.6 MG Oral Tablet JEFF ([facility]) sennosides 8.6 mg-docusate sodium 50 mg capsule Take 2 capsules by oral route at bedtime. JEFF ([facility]) sennosides, RETIREMENT 8.6 MG Oral Tablet [Senna-Time] JEFF ([facility]) Propranolol Hydrochloride 20 MG Oral Tablet JEFF ([facility]) Prazosin 1 MG Oral Capsule A THEN ([facility]) OneTouch Verio test strips USE UP TO TWO TIMES A DAY DIRECTED [place] ([facility]) OneTouch Verio Flex Meter AT [facility] ([facility]) OneTouch Delica Plus Lancet 33 gauge [place] ([facility]) Ofloxacin 3 MG/ML Otic Solution JEFF ([facility]) Mirtazapine 45 MG Oral Tablet JEFF ([facility]) Mirtazapine 15 MG Oral Tablet JEFF ([facility]) lamotrigine 25 MG Oral Tablet JEFF ([facility]) lamotrigine 100 MG Oral Tablet JEFF ([facility]) Ketoconazole 20 MG/ML Medicated Shampoo JEFF ([facility]) Famotidine 20 MG Oral Tablet JEFF ([facility]) Docusate Sodium 100 MG Oral Capsule [DOK] JEFF ([facility]) Clonidine Hydrochloride 0.2 MG Oral Tablet JEFF ([facility]) Clonazepam 1 MG Oral Tablet JEFF ([facility]) Clonazepam 0.5 MG Disintegrating Oral Tablet JEFF ([facility]) Clindamycin 150 MG Oral Capsule JEFF ([facility]) Cephalexin 500 MG Oral Capsule JEFF ([facility]) cefdinir 300 MG Oral Capsule JEFF ([facility]) buspirone hydrochloride 7.5 MG Oral Tablet JEFF ([facility]) buspirone hydrochloride 15 MG Oral Tablet JEFF ([facility]) buspirone hydrochloride 10 MG Oral Tablet JEFF ([facility]) benztropine mesylate 0.5 MG Oral Tablet JEFF ([facility]) benzonatate 200 MG Oral Capsule JEFF ([facility]) Azithromycin 250 MG Oral Tablet JEFF ([facility]) Amitriptyline Hydrochloride 75 MG Oral Tablet JEFF ([facility]) Amitriptyline Hydrochloride 50 MG Oral Tablet JEFF ([facility]) lamotrigine 25 MG Oral Tablet JEFF ([facility]) lamotrigine 100 MG Oral Tablet JEFF ([facility]) Ketoconazole 20 MG/ML Medicated Shampoo JEFF ([facility]) Famotidine 20 MG Oral Tablet JEFF ([facility]) Docusate Sodium 100 MG Oral Capsule [DOK] JEFF ([facility]) Clonidine Hydrochloride 0.2 MG Oral Tablet JEFF ([facility]) Clonazepam 1 MG Oral Tablet JEFF ([facility]) Clonazepam 0.5 MG Disintegrating Oral Tablet JEFF ([facility]) Clindamycin 150 MG Oral Capsule JEFF ([facility]) Cephalexin 500 MG Oral Capsule JEFF ([facility]) cefdinir 300 MG Oral Capsule JEFF ([facility]) buspirone hydrochloride 7.5 MG Oral Tablet JEFF ([facility]) buspirone hydrochloride 15 MG Oral Tablet JEFF ([facility]) buspirone hydrochloride 10 MG Oral Tablet JEFF ([facility]) benztropine mesylate 0.5 MG Oral Tablet JEFF ([facility]) benzonatate 200 MG Oral Capsule JEFF ([facility]) BD Ultra-Fine Short Pen Needle 31 gauge x 5/16" USE ONCE DAILY JEFF ([facility]) Azithromycin 250 MG Oral Tablet JEFF ([facility]) Amitriptyline Hydrochloride 75 MG Oral Tablet JEFF ([facility]) Amitriptyline Hydrochloride 50 MG Oral Tablet JEFF ([facility]) Isopropyl Alcohol 0.7 ML/ML Medicated Pad JEFF ([facility]) Clindamycin 150 MG Oral Capsule JEFF ([facility]) Cephalexin 500 MG Oral Capsule JEFF ([facility]) cefdinir 300 MG Oral Capsule JEFF ([facility]) buspirone hydrochloride 7.5 MG Oral Tablet JEFF ([facility]) buspirone hydrochloride 15 MG Oral Tablet JEFF ([facility]) buspirone hydrochloride 10 MG Oral Tablet JEFF ([facility]) benztropine mesylate 0.5 MG Oral Tablet JEFF ([facility]) benzonatate 200 MG Oral Capsule JEFF ([facility]) BD Ultra-Fine Short Pen Needle 31 gauge x 5/16" USE ONCE DAILY JEFF ([facility]) Azithromycin 250 MG Oral Tablet JEFF ([facility]) Amitriptyline Hydrochloride 75 MG Oral Tablet JEFF ([facility]) Amitriptyline Hydrochloride 50 MG Oral Tablet EJFF ([facility]) Isopropyl Alcohol 0.7 ML/ML Medicated Pad JEFF ([facility]) ziprasidone 60 MG Oral Capsule JEFF ([facility]) Ergocalciferol [id number] UNT Oral Capsule JEFF ([facility]) 0.5 ML dulaglutide 1.5 MG/ML Auto-Injector [Trulicity] JEFF ([facility]) Triamcinolone Acetonide 1 MG/ML Topical Cream JEFF ([facility]) Steglatro 5 mg tablet JEFF ([facility]) Simvastatin 10 MG Oral Tablet JEFF ([facility]) Docusate Sodium 50 MG / sennosides, RETIREMENT 8.6 MG Oral Tablet JEFF ([facility]) sennosides 8.6 mg-docusate sodium 50 mg capsule Take 2 capsules by oral route at bedtime. JEFF ([facility]) sennosides, RETIREMENT 8.6 MG Oral Tablet [Senna-Time] JEFF ([facility]) Propranolol Hydrochloride 20 MG Oral Tablet JEFF ([facility]) Prazosin 1 MG Oral Capsule A THENA ([facility]) OneTouch Verio Flex Meter AT [place] ([facility]) OneTouch Delica Plus Lancet 33 gauge JEFF ([facility]) Mirtazapine 45 MG Oral Tablet JEFF ([facility]) Mirtazapine 15 MG Oral Tablet JEFF ([facility]) lamotrigine 25 MG Oral Tablet JEFF ([facility]) lamotrigine 100 MG Oral Tablet JEFF ([facility]) Ketoconazole 20 MG/ML Medicated Shampoo JEFF ([facility]) Famotidine 20 MG Oral Tablet JEFF ([facility]) Docusate Sodium 100 MG Oral Capsule [DOK] JEFF ([facility]) Clonidine Hydrochloride 0.2 MG Oral Tablet JEFF ([facility]) Clonazepam 1 MG Oral Tablet JEFF ([facility]) Clonazepam 0.5 MG Oral Tablet JEFF ([facility]) Clonazepam 0.5 MG Disintegrating Oral Tablet JEFF ([facility]) Clindamycin 150 MG Oral Capsule JEFF ([facility]) cefdinir 300 MG Oral Capsule JEFF ([facility]) buspirone hydrochloride 7.5 MG Oral Tablet JEFF ([facility]) buspirone hydrochloride 15 MG Oral Tablet JEFF ([facility]) buspirone hydrochloride 10 MG Oral Tablet JEFF ([facility]) benztropine mesylate 0.5 MG Oral Tablet JEFF ([facility]) benzonatate 200 MG Oral Capsule JEFF ([facility]) Azithromycin 250 MG Oral Tablet JEFF ([facility]) Amitriptyline Hydrochloride 75 MG Oral Tablet JEFF ([facility]) Amitriptyline Hydrochloride 50 MG Oral Tablet JEFF ([facility]) Isopropyl Alcohol 0.7 ML/ML Medicated Pad JEFF ([facility]) ziprasidone 60 MG Oral Capsule JEFF ([facility]) Ergocalciferol 50223 UNT Oral Capsule JEFF ([facility]) 0.5 ML dulaglutide 1.5 MG/ML Auto-Injector [Trulicity] JEFF ([facility]) Triamcinolone Acetonide 1 MG/ML Topical Cream JEFF ([facility]) Steglatro 5 mg tablet JEFF ([facility]) Simvastatin 10 MG Oral Tablet JEFF ([facility]) Docusate Sodium 50 MG / sennosides, RETIREMENT 8.6 MG Oral Tablet JEFF ([facility]) sennosides 8.6 mg-docusate sodium 50 mg capsule Take 2 capsules by oral route at bedtime. JEFF ([facility]) sennosides, RETIREMENT 8.6 MG Oral Tablet [Senna-Time] JEFF ([facility]) Propranolol Hydrochloride 20 MG Oral Tablet JEFF ([facility]) Prazosin 1 MG Oral Capsule A THENA ([facility]) OneTouch Verio Flex Meter AT [facility] ([facility]) OneTouch Delica Plus Lancet 33 gauge JEFF ([facility]) Mirtazapine 45 MG Oral Tablet JEFF ([facility]) Mirtazapine 15 MG Oral Tablet JEFF ([facility]) lamotrigine 25 MG Oral Tablet JEFF ([facility]) lamotrigine 100 MG Oral Tablet JEFF ([facility]) Ketoconazole 20 MG/ML Medicated Shampoo JEFF ([facility]) Famotidine 20 MG Oral Tablet JEFF ([facility]) Docusate Sodium 100 MG Oral Capsule [DOK] JEFF ([facility]) Clonidine Hydrochloride 0.2 MG Oral Tablet JEFF ([facility]) Clonazepam 1 MG Oral Tablet JEFF ([facility]) Clonazepam 0.5 MG Oral Tablet JEFF ([facility]) Clonazepam 0.5 MG Disintegrating Oral Tablet JEFF ([facility]) Clindamycin 150 MG Oral Capsule JEFF ([facility]) cefdinir 300 MG Oral Capsule JEFF ([facility]) buspirone hydrochloride 7.5 MG Oral Tablet JEFF ([facility]) buspirone hydrochloride 15 MG Oral Tablet JEFF ([facility]) buspirone hydrochloride 10 MG Oral Tablet JEFF ([facility]) benztropine mesylate 0.5 MG Oral Tablet JEFF ([facility]) benzonatate 200 MG Oral Capsule JEFF ([facility]) Azithromycin 250 MG Oral Tablet JEFF ([facility]) Amitriptyline Hydrochloride 75 MG Oral Tablet JEFF ([facility]) Amitriptyline Hydrochloride 50 MG Oral Tablet JEFF ([facility]) Isopropyl Alcohol 0.7 ML/ML Medicated Pad JEFF ([facility]) ziprasidone 60 MG Oral Capsule JEFF ([facility]) Ergocalciferol [id number] UNT Oral Capsule JEFF ([facility]) 0.5 ML dulaglutide 1.5 MG/ML Auto-Injector [Trulicity] JEFF ([facility]) Triamcinolone Acetonide 1 MG/ML Topical Cream JEFF ([facility]) Steglatro 5 mg tablet JEFF ([facility]) Simvastatin 10 MG Oral Tablet JEFF ([facility]) Docusate Sodium 50 MG / sennosides, RETIREMENT 8.6 MG Oral Tablet JEFF ([facility]) sennosides 8.6 mg-docusate sodium 50 mg capsule Take 2 capsules by oral route at bedtime. JEFF ([facility]) sennosides, RETIREMENT 8.6 MG Oral Tablet [Senna-Time] JEFF ([facility]) Propranolol Hydrochloride 20 MG Oral Tablet JEFF ([facility]) Prazosin 1 MG Oral Capsule A THENA ([facility]) OneTouch Verio Flex Meter AT [facility] ([facility]) OneTouch Delica Plus Lancet 33 gauge JEFF ([facility]) Mirtazapine 45 MG Oral Tablet JEFF ([facility]) Mirtazapine 15 MG Oral Tablet JEFF ([facility]) lamotrigine 25 MG Oral Tablet JEFF ([facility]) ziprasidone 60 MG Oral Capsule JEFF ([facility]) Ergocalciferol [id number] UNT Oral Capsule JEFF ([facility]) 0.5 ML dulaglutide 1.5 MG/ML Auto-Injector [Trulicity] JEFF ([facility]) Triamcinolone Acetonide 1 MG/ML Topical Cream JEFF ([facility]) Trazodone Hydrochloride 50 MG Oral Tablet JEFF ([facility]) Steglatro 5 mg tablet JEFF ([facility]) Simvastatin 10 MG Oral Tablet JEFF ([facility]) Docusate Sodium 50 MG / sennosides, RETIREMENT 8.6 MG Oral Tablet JEFF ([facility]) sennosides 8.6 mg-docusate sodium 50 mg capsule Take 2 capsules by oral route at bedtime. JEFF ([facility]) sennosides, RETIREMENT 8.6 MG Oral Tablet [Senna-Time] JEFF ([facility]) Propranolol Hydrochloride 20 MG Oral Tablet JEFF ([facility]) Prazosin 1 MG Oral Capsule A THEN ([facility]) OneTouch Verio test strips USE UP TO TWO TIMES A DAY DIRECTED [place] ([facility]) OneTouch Verio Flex Meter AT [facility] ([facility]) OneTouch Delica Plus Lancet 33 gauge JEFF ([facility]) Mirtazapine 45 MG Oral Tablet JEFF ([facility]) Mirtazapine 15 MG Oral Tablet JEFF ([facility]) ziprasidone 60 MG Oral Capsule JEFF ([facility]) Ergocalciferol [id number] UNT Oral Capsule JEFF ([facility]) 0.5 ML dulaglutide 1.5 MG/ML Auto-Injector [Trulicity] JEFF ([facility]) Triamcinolone Acetonide 1 MG/ML Topical Cream JEFF ([facility]) Trazodone Hydrochloride 50 MG Oral Tablet JEFF ([facility]) Steglatro 5 mg tablet JEFF ([facility]) Simvastatin 10 MG Oral Tablet JEFF ([facility]) Docusate Sodium 50 MG / sennosides, RETIREMENT 8.6 MG Oral Tablet JEFF ([facility]) sennosides 8.6 mg-docusate sodium 50 mg capsule Take 2 capsules by oral route at bedtime. JEFF ([facility]) sennosides, RETIREMENT 8.6 MG Oral Tablet [Senna-Time] JEFF ([facility]) Propranolol Hydrochloride 20 MG Oral Tablet JEFF ([facility]) Prazosin 1 MG Oral Capsule A THENA ([facility]) OneTouch Verio test strips USE UP TO TWO TIMES A DAY DIRECTED JEFF ([facility]) OneTouch Verio Flex Meter AT [place] ([facility]) OneTouch Delica Plus Lancet 33 gauge JEFF ([facility]) Mirtazapine 45 MG Oral Tablet JEFF ([facility]) Mirtazapine 15 MG Oral Tablet JEFF ([facility]) lamotrigine 25 MG Oral Tablet JEFF ([facility]) lamotrigine 100 MG Oral Tablet JEFF ([facility]) Ketoconazole 20 MG/ML Medicated Shampoo JEFF ([facility]) Famotidine 20 MG Oral Tablet JEFF ([facility]) Docusate Sodium 100 MG Oral Capsule [DOK] JEFF ([facility]) Clonidine Hydrochloride 0.2 MG Oral Tablet JEFF ([facility]) Clonazepam 1 MG Oral Tablet JEFF ([facility]) Clonazepam 0.5 MG Oral Tablet JEFF ([facility]) Clonazepam 0.5 MG Disintegrating Oral Tablet JEFF ([facility]) ziprasidone 60 MG Oral Capsule JEFF ([facility]) Ergocalciferol [id number] UNT Oral Capsule JEFF ([facility]) 0.5 ML dulaglutide 1.5 MG/ML Auto-Injector [Trulicity] JEFF ([facility]) Triamcinolone Acetonide 1 MG/ML Topical Cream JEFF ([facility]) Steglatro 5 mg tablet JEFF ([facility]) Simvastatin 10 MG Oral Tablet JEFF ([facility]) Docusate Sodium 50 MG / sennosides, RETIREMENT 8.6 MG Oral Tablet JEFF ([facility]) sennosides 8.6 mg-docusate sodium 50 mg capsule Take 2 capsules by oral route at bedtime. JEFF ([facility]) sennosides, RETIREMENT 8.6 MG Oral Tablet [Senna-Time] JEFF ([facility]) Propranolol Hydrochloride 20 MG Oral Tablet JEFF ([facility]) Prazosin 1 MG Oral Capsule A THENA ([facility]) OneTouch Verio Flex Meter AT [place] ([facility]) OneTouch Delica Plus Lancet 33 gauge JEFF ([facility]) Mirtazapine 45 MG Oral Tablet JEFF ([facility]) Mirtazapine 15 MG Oral Tablet JEFF ([facility]) lamotrigine 25 MG Oral Tablet JEFF ([facility]) lamotrigine 100 MG Oral Tablet JEFF ([facility]) Ketoconazole 20 MG/ML Medicated Shampoo JEFF ([facility]) Famotidine 20 MG Oral Tablet JEFF ([facility]) Docusate Sodium 100 MG Oral Capsule [DOK] JEFF ([facility]) Clonidine Hydrochloride 0.2 MG Oral Tablet JEFF ([facility]) Clonazepam 1 MG Oral Tablet JEFF ([facility]) Clonazepam 0.5 MG Disintegrating Oral Tablet JEFF ([facility]) Clindamycin 150 MG Oral Capsule JEFF ([facility]) cefdinir 300 MG Oral Capsule JEFF ([facility]) buspirone hydrochloride 7.5 MG Oral Tablet JEFF ([facility]) buspirone hydrochloride 10 MG Oral Tablet JEFF ([facility]) benztropine mesylate 0.5 MG Oral Tablet JEFF ([facility]) benzonatate 200 MG Oral Capsule JEFF ([facility]) Azithromycin 250 MG Oral Tablet JEFF ([facility]) Amitriptyline Hydrochloride 75 MG Oral Tablet JEFF ([facility]) Amitriptyline Hydrochloride 50 MG Oral Tablet JEFF ([facility]) Isopropyl Alcohol 0.7 ML/ML Medicated Pad JEFF ([facility]) Ketoconazole 20 MG/ML Medicated Shampoo JEFF ([facility]) Famotidine 20 MG Oral Tablet JEFF ([facility]) Docusate Sodium 100 MG Oral Capsule [DOK] JEFF ([facility]) Clonidine Hydrochloride 0.2 MG Oral Tablet JEFF ([facility]) Clonazepam 1 MG Oral Tablet JEFF ([facility]) Clindamycin 150 MG Oral Capsule JEFF ([facility]) cefdinir 300 MG Oral Capsule JEFF ([facility]) buspirone hydrochloride 7.5 MG Oral Tablet JEFF ([facility]) buspirone hydrochloride 10 MG Oral Tablet JEFF ([facility]) benztropine mesylate 0.5 MG Oral Tablet JEFF ([facility]) benzonatate 200 MG Oral Capsule JEFF ([facility]) BD Ultra-Fine Short Pen Needle 31 gauge x 5/16" USE DIRECTED ONCE DAILY JEFF ([facility]) Azithromycin 250 MG Oral Tablet JEFF ([facility]) Amitriptyline Hydrochloride 75 MG Oral Tablet JEFF ([facility]) Amitriptyline Hydrochloride 50 MG Oral Tablet JEFF ([facility]) Isopropyl Alcohol 0.7 ML/ML Medicated Pad JEFF ([facility]) lamotrigine 100 MG Oral Tablet JEFF ([facility]) Ketoconazole 20 MG/ML Medicated Shampoo JEFF ([facility]) Famotidine 20 MG Oral Tablet JEFF ([facility]) Docusate Sodium 100 MG Oral Capsule [DOK] JEFF ([facility]) Clonidine Hydrochloride 0.2 MG Oral Tablet JEFF ([facility]) Clonazepam 1 MG Oral Tablet JEFF ([facility]) Clonazepam 0.5 MG Oral Tablet JEFF ([facility]) Clonazepam 0.5 MG Disintegrating Oral Tablet JEFF ([facility]) Clindamycin 150 MG Oral Capsule JEFF ([facility]) cefdinir 300 MG Oral Capsule JEFF ([facility]) buspirone hydrochloride 7.5 MG Oral Tablet JEFF ([facility]) buspirone hydrochloride 15 MG Oral Tablet JEFF ([facility]) buspirone hydrochloride 10 MG Oral Tablet JEFF ([facility]) benztropine mesylate 0.5 MG Oral Tablet JEFF ([facility]) benzonatate 200 MG Oral Capsule JEFF ([facility]) Azithromycin 250 MG Oral Tablet JEFF ([facility]) Amitriptyline Hydrochloride 75 MG Oral Tablet JEFF ([facility]) Amitriptyline Hydrochloride 50 MG Oral Tablet JEFF ([facility]) Isopropyl Alcohol 0.7 ML/ML Medicated Pad JEFF ([facility]) ziprasidone 60 MG Oral Capsule JEFF ([facility]) 0.5 ML dulaglutide 1.5 MG/ML Auto-Injector [Trulicity] JEFF ([facility]) Triamcinolone Acetonide 1 MG/ML Topical Cream JEFF ([facility]) Steglatro 5 mg tablet JEFF ([facility]) Simvastatin 10 MG Oral Tablet JEFF ([facility]) Docusate Sodium 50 MG / sennosides, RETIREMENT 8.6 MG Oral Tablet JEFF ([facility]) sennosides 8.6 mg-docusate sodium 50 mg capsule Take 2 capsules by oral route at bedtime. JEFF ([facility]) Propranolol Hydrochloride 20 MG Oral Tablet JEFF ([facility]) Mirtazapine 45 MG Oral Tablet JEFF ([facility]) Mirtazapine 15 MG Oral Tablet JEFF ([facility]) lamotrigine 25 MG Oral Tablet JEFF ([facility]) Ketoconazole 20 MG/ML Medicated Shampoo JEFF ([facility]) Famotidine 20 MG Oral Tablet JEFF ([facility]) Clonidine Hydrochloride 0.2 MG Oral Tablet JEFF ([facility]) Clonazepam 1 MG Oral Tablet JEFF ([facility]) cefdinir 300 MG Oral Capsule JEFF ([facility]) buspirone hydrochloride 7.5 MG Oral Tablet JEFF ([facility]) buspirone hydrochloride 10 MG Oral Tablet JEFF ([facility]) benztropine mesylate 0.5 MG Oral Tablet JEFF ([facility]) benzonatate 200 MG Oral Capsule JEFF ([facility]) Azithromycin 250 MG Oral Tablet JEFF ([facility]) Amitriptyline Hydrochloride 75 MG Oral Tablet JEFF ([facility]) Amitriptyline Hydrochloride 50 MG Oral Tablet JEFF ([facility]) ziprasidone 60 MG Oral Capsule EJFF ([facility]) 0.5 ML dulaglutide 1.5 MG/ML Auto-Injector [Trulicity] JEFF ([facility]) Triamcinolone Acetonide 1 MG/ML Topical Cream JEFF ([facility]) Steglatro 5 mg tablet JEFF ([facility]) Simvastatin 10 MG Oral Tablet JEFF ([facility]) Docusate Sodium 50 MG / sennosides, RETIREMENT 8.6 MG Oral Tablet JEFF ([facility]) sennosides 8.6 mg-docusate sodium 50 mg capsule Take 2 capsules by oral route at bedtime. JEFF ([facility]) buspirone hydrochloride 10 MG Oral Tablet JEFF ([facility]) benztropine mesylate 0.5 MG Oral Tablet JEFF ([facility]) benzonatate 200 MG Oral Capsule JEFF ([facility]) Azithromycin 250 MG Oral Tablet JEFF ([facility]) Amitriptyline Hydrochloride 75 MG Oral Tablet JEFF ([facility]) Amitriptyline Hydrochloride 50 MG Oral Tablet JEFF ([facility]) ziprasidone 60 MG Oral Capsule JEFF ([facility]) 0.5 ML dulaglutide 1.5 MG/ML Auto-Injector [Trulicity] JEFF ([facility]) Triamcinolone Acetonide 1 MG/ML Topical Cream JEFF ([facility]) Steglatro 5 mg tablet JEFF ([facility]) Simvastatin 10 MG Oral Tablet JEFF ([facility]) Docusate Sodium 50 MG / sennosides, RETIREMENT 8.6 MG Oral Tablet JEFF ([facility]) ziprasidone 60 MG Oral Capsule JEFF ([facility]) Ergocalciferol 37563 UNT Oral Capsule JEFF ([facility]) 0.5 ML dulaglutide 1.5 MG/ML Auto-Injector [Trulicity] JEFF ([facility]) Triamcinolone Acetonide 1 MG/ML Topical Cream JEFF ([facility]) Steglatro 5 mg tablet JEFF ([facility]) Simvastatin 10 MG Oral Tablet JEFF ([facility]) Docusate Sodium 50 MG / sennosides, RETIREMENT 8.6 MG Oral Tablet JEFF ([facility]) sennosides 8.6 mg-docusate sodium 50 mg capsule Take 2 capsules by oral route at bedtime. JEFF ([facility]) sennosides, RETIREMENT 8.6 MG Oral Tablet [Senna-Time] JEFF ([facility]) Propranolol Hydrochloride 20 MG Oral Tablet JEFF ([facility]) Prazosin 1 MG Oral Capsule A THENA ([facility]) OneTouch Verio test strips USE DIRECTED UP TO TWO TIMES A DAY JEFF ([facility]) OneTouch Verio Flex Meter AT [facility] ([facility]) OneTouch Delica Plus Lancet 33 gauge JEFF ([facility]) Mirtazapine 45 MG Oral Tablet JEFF ([facility]) Mirtazapine 15 MG Oral Tablet JEFF ([facility]) lamotrigine 25 MG Oral Tablet JEFF ([facility]) Ketoconazole 20 MG/ML Medicated Shampoo JEFF ([facility]) Famotidine 20 MG Oral Tablet JEFF ([facility]) Docusate Sodium 100 MG Oral Capsule [DOK] JEFF ([facility]) Clonidine Hydrochloride 0.2 MG Oral Tablet JEFF ([facility]) Clonazepam 1 MG Oral Tablet JEFF ([facility]) Clindamycin 150 MG Oral Capsule JEFF ([facility]) cefdinir 300 MG Oral Capsule JEFF ([facility]) buspirone hydrochloride 7.5 MG Oral Tablet JEFF ([facility]) buspirone hydrochloride 10 MG Oral Tablet JEFF ([facility]) benztropine mesylate 0.5 MG Oral Tablet JEFF ([facility]) benzonatate 200 MG Oral Capsule JEFF ([facility]) BD Ultra-Fine Short Pen Needle 31 gauge x 5/16" USE DIRECTED ONCE DAILY JEFF ([facility]) Azithromycin 250 MG Oral Tablet JEFF ([facility]) Amitriptyline Hydrochloride 75 MG Oral Tablet JEFF ([facility]) Amitriptyline Hydrochloride 50 MG Oral Tablet JEFF ([facility]) Isopropyl Alcohol 0.7 ML/ML Medicated Pad JEFF ([facility]) ziprasidone 60 MG Oral Capsule JEFF ([facility]) Ergocalciferol 36102 UNT Oral Capsule JEFF ([facility]) 0.5 ML dulaglutide 1.5 MG/ML Auto-Injector [Trulicity] JEFF ([facility]) Triamcinolone Acetonide 1 MG/ML Topical Cream JEFF ([facility]) Steglatro 5 mg tablet JEFF ([facility]) Simvastatin 10 MG Oral Tablet JEFF ([facility]) Docusate Sodium 50 MG / sennosides, RETIREMENT 8.6 MG Oral Tablet JEFF ([facility]) sennosides 8.6 mg-docusate sodium 50 mg capsule Take 2 capsules by oral route at bedtime. JEFF ([facility]) sennosides, RETIREMENT 8.6 MG Oral Tablet [Senna-Time] JEFF ([facility]) Propranolol Hydrochloride 20 MG Oral Tablet JEFF ([facility]) Prazosin 1 MG Oral Capsule A THENA ([facility]) OneTouch Verio test strips USE DIRECTED UP TO TWO TIMES A DAY [place] ([facility]) OneTouch Verio Flex Meter AT [facility] ([facility]) OneTouch Delica Plus Lancet 33 gauge JEFF ([facility]) Mirtazapine 45 MG Oral Tablet JEFF ([facility]) Mirtazapine 15 MG Oral Tablet JEFF ([facility]) lamotrigine 25 MG Oral Tablet JEFF ([facility]) sennosides 8.6 mg-docusate sodium 50 mg capsule Take 2 capsules by oral route at bedtime. JEFF ([facility]) Propranolol Hydrochloride 20 MG Oral Tablet JEFF ([facility]) Prazosin 1 MG Oral Capsule A THENA ([facility]) Mirtazapine 45 MG Oral Tablet JEFF ([facility]) Mirtazapine 15 MG Oral Tablet JEFF ([facility]) lamotrigine 25 MG Oral Tablet JEFF ([facility]) Ketoconazole 20 MG/ML Medicated Shampoo JEFF ([facility]) Famotidine 20 MG Oral Tablet JEFF ([facility]) Clonidine Hydrochloride 0.2 MG Oral Tablet JEFF ([facility]) Clonazepam 1 MG Oral Tablet JEFF ([facility]) Clonazepam 0.5 MG Oral Tablet JEFF ([facility]) cefdinir 300 MG Oral Capsule JEFF ([facility]) buspirone hydrochloride 7.5 MG Oral Tablet JEFF ([facility]) buspirone hydrochloride 10 MG Oral Tablet JEFF ([facility]) benztropine mesylate 0.5 MG Oral Tablet JEFF ([facility]) benzonatate 200 MG Oral Capsule JEFF ([facility]) Azithromycin 250 MG Oral Tablet JEFF ([facility]) Amitriptyline Hydrochloride 75 MG Oral Tablet JEFF ([facility]) Amitriptyline Hydrochloride 50 MG Oral Tablet JEFF ([facility]) Mirtazapine 45 MG Oral Tablet JEFF ([facility]) Mirtazapine 15 MG Oral Tablet JEFF ([facility]) Ketoconazole 20 MG/ML Medicated Shampoo JEFF ([facility]) Famotidine 20 MG Oral Tablet JEFF ([facility]) Clonidine Hydrochloride 0.2 MG Oral Tablet JEFF ([facility]) Clonazepam 1 MG Oral Tablet JEFF ([facility]) cefdinir 300 MG Oral Capsule JEFF ([facility]) buspirone hydrochloride 7.5 MG Oral Tablet JEFF ([facility]) buspirone hydrochloride 10 MG Oral Tablet JEFF ([facility]) benztropine mesylate 0.5 MG Oral Tablet JEFF ([facility]) benzonatate 200 MG Oral Capsule JEFF ([facility]) Azithromycin 250 MG Oral Tablet JEFF ([facility]) Amitriptyline Hydrochloride 75 MG Oral Tablet JEFF ([facility]) Amitriptyline Hydrochloride 50 MG Oral Tablet JEFF ([facility]) ziprasidone 60 MG Oral Capsule JEFF ([facility]) 0.5 ML dulaglutide 1.5 MG/ML Auto-Injector [Trulicity] JEFF ([facility]) Triamcinolone Acetonide 1 MG/ML Topical Cream JEFF ([facility]) Docusate Sodium 50 MG / sennosides, RETIREMENT 8.6 MG Oral Tablet JEFF ([facility]) sennosides 8.6 mg-docusate sodium 50 mg capsule Take 2 capsules by oral route at bedtime. JEFF ([facility]) Propranolol Hydrochloride 20 MG Oral Tablet JEFF ([facility]) Mirtazapine 45 MG Oral Tablet JEFF ([facility]) Mirtazapine 15 MG Oral Tablet JEFF ([facility]) Ketoconazole 20 MG/ML Medicated Shampoo JEFF ([facility]) Propranolol Hydrochloride 20 MG Oral Tablet JEFF ([facility]) Mirtazapine 45 MG Oral Tablet JEFF ([facility]) Mirtazapine 15 MG Oral Tablet JEFF ([facility]) lamotrigine 25 MG Oral Tablet JEFF ([facility]) Ketoconazole 20 MG/ML Medicated Shampoo JEFF ([facility]) Famotidine 20 MG Oral Tablet JEFF ([facility]) Clonidine Hydrochloride 0.2 MG Oral Tablet JEFF ([facility]) Clonazepam 1 MG Oral Tablet JEFF ([facility]) cefdinir 300 MG Oral Capsule JEFF ([facility]) buspirone hydrochloride 7.5 MG Oral Tablet JEFF ([facility]) Famotidine 20 MG Oral Tablet JEFF ([facility]) Clonidine Hydrochloride 0.2 MG Oral Tablet JEFF ([facility]) Clonazepam 1 MG Oral Tablet JEFF ([facility]) cefdinir 300 MG Oral Capsule JEFF ([facility]) buspirone hydrochloride 7.5 MG Oral Tablet JEFF ([facility]) buspirone hydrochloride 10 MG Oral Tablet JEFF ([facility]) benztropine mesylate 0.5 MG Oral Tablet JEFF ([facility]) benzonatate 200 MG Oral Capsule JEFF ([facility]) Azithromycin 250 MG Oral Tablet JEFF ([facility]) Amitriptyline Hydrochloride 75 MG Oral Tablet JEFF ([facility]) Amitriptyline Hydrochloride 50 MG Oral Tablet JEFF ([facility]) ziprasidone 60 MG Oral Capsule JEFF ([facility]) 0.5 ML dulaglutide 1.5 MG/ML Auto-Injector [Trulicity] JEFF ([facility]) Triamcinolone Acetonide 1 MG/ML Topical Cream JEFF ([facility]) Ketoconazole 20 MG/ML Medicated Shampoo JEFF ([facility]) Famotidine 20 MG Oral Tablet JEFF ([facility]) Clonidine Hydrochloride 0.2 MG Oral Tablet JEFF ([facility]) Clonazepam 1 MG Oral Tablet JEFF ([facility]) cefdinir 300 MG Oral Capsule JEFF ([facility]) buspirone hydrochloride 7.5 MG Oral Tablet JEFF ([facility]) buspirone hydrochloride 10 MG Oral Tablet JEFF ([facility]) benztropine mesylate 0.5 MG Oral Tablet JEFF ([facility]) benzonatate 200 MG Oral Capsule JEFF ([facility]) Azithromycin 250 MG Oral Tablet JEFF ([facility]) Amitriptyline Hydrochloride 75 MG Oral Tablet JEFF ([facility]) Amitriptyline Hydrochloride 50 MG Oral Tablet JEFF ([facility]) ziprasidone 60 MG Oral Capsule JEFF ([facility]) 0.5 ML dulaglutide 1.5 MG/ML Auto-Injector [Trulicity] JEFF ([facility]) Triamcinolone Acetonide 1 MG/ML Topical Cream JEFF ([facility]) Docusate Sodium 50 MG / sennosides, RETIREMENT 8.6 MG Oral Tablet JEFF ([facility]) sennosides 8.6 mg-docusate sodium 50 mg capsule Take 2 capsules by oral route at bedtime. JEFF ([facility]) Propranolol Hydrochloride 20 MG Oral Tablet JEFF ([facility]) ziprasidone 60 MG Oral Capsule JEFF ([facility]) 0.5 ML dulaglutide 1.5 MG/ML Auto-Injector [Trulicity] JEFF ([facility]) Triamcinolone Acetonide 1 MG/ML Topical Cream JEFF ([facility]) Docusate Sodium 50 MG / sennosides, RETIREMENT 8.6 MG Oral Tablet JEFF ([facility]) sennosides 8.6 mg-docusate sodium 50 mg capsule Take 2 capsules by oral route at bedtime. JEFF ([facility]) Propranolol Hydrochloride 20 MG Oral Tablet JEFF ([facility]) Mirtazapine 45 MG Oral Tablet JEFF ([facility]) Mirtazapine 15 MG Oral Tablet JEFF ([facility]) Ketoconazole 20 MG/ML Medicated Shampoo JEFF ([facility]) Famotidine 20 MG Oral Tablet JEFF ([facility]) Clonidine Hydrochloride 0.2 MG Oral Tablet JEFF ([facility]) Clonazepam 1 MG Oral Tablet JEFF ([facility]) Docusate Sodium 50 MG / sennosides, RETIREMENT 8.6 MG Oral Tablet JEFF ([facility]) sennosides 8.6 mg-docusate sodium 50 mg capsule Take 2 capsules by oral route at bedtime. JEFF ([facility]) Propranolol Hydrochloride 20 MG Oral Tablet JEFF ([facility]) Mirtazapine 45 MG Oral Tablet JEFF ([facility]) Mirtazapine 15 MG Oral Tablet JEFF ([facility]) Ketoconazole 20 MG/ML Medicated Shampoo JEFF ([facility]) Famotidine 20 MG Oral Tablet JEFF ([facility]) Clonidine Hydrochloride 0.2 MG Oral Tablet JEFF ([facility]) Clonazepam 1 MG Oral Tablet JEFF ([facility]) cefdinir 300 MG Oral Capsule JEFF ([facility]) buspirone hydrochloride 7.5 MG Oral Tablet JEFF ([facility]) buspirone hydrochloride 10 MG Oral Tablet JEFF ([facility]) benztropine mesylate 0.5 MG Oral Tablet JEFF ([facility]) benzonatate 200 MG Oral Capsule JEFF ([facility]) Azithromycin 250 MG Oral Tablet JEFF ([facility]) Amitriptyline Hydrochloride 75 MG Oral Tablet JEFF ([facility]) Amitriptyline Hydrochloride 50 MG Oral Tablet JEFF ([facility]) Docusate Sodium 50 MG / sennosides, RETIREMENT 8.6 MG Oral Tablet JEFF ([facility]) sennosides 8.6 mg-docusate sodium 50 mg capsule Take 2 capsules by oral route at bedtime. JEFF ([facility]) Propranolol Hydrochloride 20 MG Oral Tablet JEFF ([facility]) Mirtazapine 45 MG Oral Tablet JEFF ([facility]) Mirtazapine 15 MG Oral Tablet JEFF ([facility]) cefdinir 300 MG Oral Capsule JEFF ([facility]) buspirone hydrochloride 7.5 MG Oral Tablet JEFF ([facility]) buspirone hydrochloride 10 MG Oral Tablet JEFF ([facility]) benztropine mesylate 0.5 MG Oral Tablet JEFF ([facility]) benzonatate 200 MG Oral Capsule JEFF ([facility]) Azithromycin 250 MG Oral Tablet JEFF ([facility]) Amitriptyline Hydrochloride 75 MG Oral Tablet JEFF ([facility]) Amitriptyline Hydrochloride 50 MG Oral Tablet JEFF ([facility]) ziprasidone 60 MG Oral Capsule JEFF ([facility]) 0.5 ML dulaglutide 1.5 MG/ML Auto-Injector [Trulicity] JEFF ([facility]) Triamcinolone Acetonide 1 MG/ML Topical Cream JEFF ([facility])
--- OUTSIDE RECORDS SUMMARY | 2021-08-19 02:10 | CCD ---
Author Author [facility] Address Unknown Phone Unavailable Support Name Relationship Address Phone Aleyda Goncalves Next Of Kin Unknown Unavailable Kinza Fritz Next Of Kin [address] [place] [address] Leela Castaneda Next Of Kin [address] [place], [place] [phone] Steven Veloz MD Next Of Kin [address] [place] [address] UNanci Next Of Kin Unknown Unavailable [place] [address] GERRY VARGAS Next Of Kin Unknown GERRY OJEDA Next Of Kin [address] [facility] [place] [address] GERRY MONIQUE Next Of Kin [address] [place] [address] Selena MUHAMMAD, Carol Next Of Kin [address] [place] [address] NONE, [place] [address] Unavailable KACY GONCALVES Next Of Kin [address] [facility] [place] [address] [place] [address] NOBODY, TIME AT Next Of Kin [address] [place] [address] ALEYDA GONCALVES Next Of Kin [address] [facility] [place] [address] STEPHANIE, [place] [address] ALANNA HATFIELD Next Of Kin [address] [facility] [address] [place] [phone] ISAEL [place] [address] DISABLED Next Of Kin Unknown GERRY OJEDA ECON Unknown Unavailable Aleyda Louie ECON [address] [place] [address] Unavailable ALEYDA GONCALVES ECON [address] [place] [address] [phone] Care Team Providers Care Labor Supervisor Name Role Phone Shiv Veloz MD Unavailable [...] Unavailable Unavailable Shiv Veloz MD Unavailable Unavailable Shvi Veloz MD Unavailable Unavailable Shiv Veloz MD [...] Shiv Harris MD Unavailable Unavailable Kinza Yanes PATIENT FINANCIAL SERVICES COORDINATOR PATIENT FINANCIAL SERVICES COORDINATOR Unavailable Unavailable Montenegro, R Russell MANAGER BOOKS Unavailable Unavailable Montenegro, R Russell MANAGER BOOKS Unavailable Unavailable Montenegro, R Russell MANAGER BOOKS Unavailable Unavailable PABLO, B LIAM MANAGER BOOKS Unavailable Unavailable PABLO, B LIAM MANAGER BOOKS Unavailable Unavailable PABLO, B LIAM MANAGER BOOKS Unavailable Unavailable PABLO, B LIAM MANAGER BOOKS Unavailable Unavailable PABLO, B LIAM MANAGER BOOKS Unavailable Unavailable PABLO, B LIAM MANAGER BOOKS Unavailable Unavailable PABLO, B LIAM MANAGER BOOKS Unavailable Unavailable PABLO, B LIAM MANAGER BOOKS Unavailable Unavailable PABLO, B LIAM MANAGER BOOKS Unavailable Unavailable PABLO, B LIAM MANAGER BOOKS Unavailable Unavailable PABLO, B LIAM MANAGER BOOKS Unavailable Unavailable PABLO, B LIAM MANAGER BOOKS Unavailable Unavailable PABLO, B LIAM MANAGER BOOKS Unavailable Unavailable PABLO, B LIAM MANAGER BOOKS Unavailable Unavailable PABLO, B LIAM MANAGER BOOKS Unavailable Unavailable PABLO, B LIAM MANAGER BOOKS Unavailable Unavailable PABLO, B LIAM MANAGER BOOKS Unavailable Unavailable PABLO, B LIAM MANAGER BOOKS Unavailable Unavailable PABLO, B LIAM MANAGER BOOKS Unavailable Unavailable PABLO, B LIAM MANAGER BOOKS Unavailable Unavailable PABLO, B LIAM MANAGER BOOKS Unavailable Unavailable PABLO, B LIAM MANAGER BOOKS Unavailable Unavailable PABLO, B LIAM MANAGER BOOKS Unavailable Unavailable PABLO, B LIAM MANAGER BOOKS Unavailable Unavailable PABLO, B LIAM MANAGER BOOKS Unavailable Unavailable PABLO, B LIAM MANAGER BOOKS Unavailable Unavailable PABLO, B LIAM MANAGER BOOKS Unavailable Unavailable PABLO, B LIAM MANAGER BOOKS Unavailable Unavailable PABLO, B LIAM MANAGER BOOKS Unavailable Unavailable PABLO, B LIAM MANAGER BOOKS Unavailable Unavailable PABLO, B LIAM MANAGER BOOKS Unavailable Unavailable PABLO, B LIAM MANAGER BOOKS Unavailable Unavailable PABLO, B LIAM MANAGER BOOKS Unavailable Unavailable PABLO, B LIAM MANAGER BOOKS Unavailable Unavailable PABLO, B LIAM MANAGER BOOKS Unavailable Unavailable PABLO, B LIAM MANAGER BOOKS Unavailable Unavailable PABLO, B LIAM MANAGER BOOKS Unavailable Unavailable PABLO, B LIAM MANAGER BOOKS Unavailable Unavailable PABLO, B ILAM MANAGER BOOKS Unavailable Unavailable PABLO, B LIAM MANAGER BOOKS Unavailable Unavailable PABLO, B LIAM MANAGER BOOKS Unavailable Unavailable PABLO, B LIAM MANAGER BOOKS Unavailable Unavailable PABLO, B LIAM MANAGER BOOKS Unavailable Unavailable PABLO, B LIAM MANAGER BOOKS Unavailable Unavailable PABLO, B LIAM MANAGER BOOKS Unavailable Unavailable PABLO, B LIAM MANAGER BOOKS Unavailable Unavailable PABLO, B LIAM MANAGER BOOKS Unavailable Unavailable PABLO, B LIAM MANAGER BOOKS Unavailable Unavailable PABLO, B LIAM MANAGER BOOKS Unavailable Unavailable PABLO, B LIAM MANAGER BOOKS Unavailable Unavailable PABLO, B LIAM MANAGER BOOKS Unavailable Unavailable PABLO, B LIAM MANAGER BOOKS Unavailable Unavailable PABLO, B LIAM MANAGER BOOKS Unavailable Unavailable PABLO, B LIAM MANAGER BOOKS Unavailable Unavailable PABLO, B LIAM MANAGER BOOKS Unavailable Unavailable PABLO, B LIAM MANAGER BOOKS Unavailable Unavailable PABLO, B LIAM MANAGER BOOKS Unavailable Unavailable PABLO, B LIAM MANAGER BOOKS Unavailable Unavailable PABLO, B LIAM MANAGER BOOKS Unavailable Unavailable PABLO, B LIAM MANAGER BOOKS Unavailable Unavailable PABLO, B LIAM MANAGER BOOKS Unavailable Unavailable PABLO, B LIAM MANAGER BOOKS Unavailable Unavailable MAJAK, Kim VIRGEN DPM Unavailable [...] Unavailable Corey Basilio Unavailable Ricky, Cristy Adrienne PMH-MANAGER BOOKS Unavailable Unavailable Ircky, K Adrienne PMH-MANAGER BOOKS Unavailable Unavailable [place], K Adrienne PMH-MANAGER BOOKS Unavailable Unavailable Ricky, K Adrienne PMH-MANAGER BOOKS Unavailable Unavailable [place], K Adrienne PMH-MANAGER BOOKS Unavailable Unavailable Ricky, K Adrienne PMH-MANAGER BOOKS Unavailable Unavailable Ricky, K Adrienne PMH-MANAGER BOOKS Unavailable Unavailable Ricky, K Adrienne PMH-MANAGER BOOKS Unavailable Unavailable Cesilia Narvaez Unavailable Guido Yanes Kinza PATIENT FINANCIAL SERVICES COORDINATOR-BC Unavailable Unavailable Joaquín, F Kinza PATIENT FINANCIAL SERVICES COORDINATOR-BC Unavailable Unavailable Joaquín, F Kinza PATIENT FINANCIAL SERVICES COORDINATOR-BC Unavailable Unavailable Joaquín, F Kinza PATIENT FINANCIAL SERVICES COORDINATOR-BC Unavailable Unavailable Yanes, F Kinza PATIENT FINANCIAL SERVICES COORDINATOR-BC Unavailable Unavailable Joaquín, F Kinza PATIENT FINANCIAL SERVICES COORDINATOR-BC Unavailable Unavailable Yanes, F Kinza PATIENT FINANCIAL SERVICES COORDINATOR-BC Unavailable Unavailable Yanes, F Kinza PATIENT FINANCIAL SERVICES COORDINATOR-BC Unavailable Unavailable Yanes, F Kinza PATIENT FINANCIAL SERVICES COORDINATOR-BC Unavailable Unavailable Yanes, F Kinza PATIENT FINANCIAL SERVICES COORDINATOR-BC Unavailable Unavailable Yanes, F Kinza PATIENT FINANCIAL SERVICES COORDINATOR-BC Unavailable Unavailable Joaquín, F Kinza PATIENT FINANCIAL SERVICES COORDINATOR-BC Unavailable Unavailable Yanes, F Kinza PATIENT FINANCIAL SERVICES COORDINATOR-BC Unavailable Unavailable Guido Yanes Kinza PATIENT FINANCIAL SERVICES COORDINATOR-BC Unavailable Unavailable Guido Yanes PATIENT FINANCIAL SERVICES COORDINATOR-BC Unavailable Unavailable Guido Yanes PATIENT FINANCIAL SERVICES COORDINATOR-BC Unavailable Unavailable Guido Yanes PATIENT FINANCIAL SERVICES COORDINATOR-BC Unavailable Unavailable Guido Yanes Kinza PATIENT FINANCIAL SERVICES COORDINATOR-BC Unavailable Unavailable Guido Yanes Kinza PATIENT FINANCIAL SERVICES COORDINATOR-BC Unavailable Unavailable Guido Yanes Kinza PATIENT FINANCIAL SERVICES COORDINATOR-BC Unavailable Unavailable Guido Yanes PATIENT FINANCIAL SERVICES COORDINATOR-BC Unavailable Unavailable Guido Yanes Kinza PATIENT FINANCIAL SERVICES COORDINATOR-BC Unavailable Unavailable Guido Yanes Kinza PATIENT FINANCIAL SERVICES COORDINATOR-BC Unavailable Unavailable Scordo, M Whitney PA Unavailable [...] is protected by Article 27-F of the [facility] Public Health law. If you continue you may have access to information: Regarding HIV / AIDS; Provided by facilities licensed or operated by the [facility] Office of Mental Health; or Provided by the [facility] Office for People With Developmental Disabilities. If such information is present, then the following [facility] mandated warning applies: This information has [...] law may result in a fine or halfway sentence or both. A general authorization for the release of medical or other information is NOT sufficient authorization for further disc losure. Allergies and Adverse Reactions Type Description Substance Reaction Status Data Source(s ) Propensity to adverse reactions to substance Penicillins Penicillins Active [facility] ([facility]) Propensity to adverse reactions to substance chlorpromazine Chlorpromazine hydrochloride 100 MG Oral Tablet Active [facility] ([facility]) Family History Family Member Name Family Member Gender Family Member Status Date o f Status Description Data Source(s) Unknown Unknown Problem [facility] ([facility], ) Encounters Encounter Providers Location Date Indications Data Source(s ) Steven Veloz MD: [address] [place] [phone], Ph. Attender: Steven Veloz MD [facility] 07/19/2021 12:00:00 AM EDT JEFF ([facility]) Extended Individual Psychotherapy - 45 min Attender: [facility] 07/02/2021 10:45:00 AM EDT - 07/02/2021 10:45:00 AM EDT [facility] ([facility]) Attender: [facility] 07/02/2021 12:00:00 AM EDT [facility] ([facility]) TEMPMHCTelemed 30" Psychotherapy Attender: [facility] 06/14/2021 12:30:00 PM EDT - 06/14/2021 12:30:00 PM EDT [facility] ([facility]) Attender: [facility] 06/14/2021 12:00:00 AM EDT [facility] ([facility]) Steven Veloz MD: [address] [place] [phone], Ph. Attender: Steven Veloz MD [facility] 06/12/2021 12:00:00 AM EDT JEFF ([facility]) Steven Veloz MD: [address] [place] [phone], Ph. Attender: Steven Veloz MD [facility] 06/12/2021 12:00:00 AM EDT JEFF ([facility]) Brief Individual Psychotherapy - 30 min Attender: [facility] 05/31/2021 12:30:00 PM EDT - 05/31/2021 12:30:00 PM EDT [facility] ([facility]) Attender: Corey Basilio 05/31/2021 12:00:00 AM EDT [facility] ([facility]) Outpatient Attender: Russell Montenegro NP [facility] 05/30/2021 10:45:00 AM EDT - 05/30/2021 10:45:00 AM EDT [facility] ([facility]) Attender: Russell Montenegro NP 05/30/2021 12:00:00 AM EDT [facility] ([facility]) Steven Veloz MD: [address] [place] [address], Ph. Attender: Steven Veloz MD [facility] 05/02/2021 12:00:00 AM EDT JEFF ([facility]) Steven Veloz MD: [address] [place] [phone], Ph. Attender: Steven Veloz MD [facility] 05/02/2021 12:00:00 AM EDT JEFF ([facility]) Steven Veloz MD: [address] [place] [phone], Ph. Attender: Steven Veloz MD [facility] 05/02/2021 12:00:00 AM EDT JEFF ([facility]) [id number]"Psychotherapy Attender: Corey Basilio [facility] 05/01/2021 01:00:00 AM EDT - 05/01/2021 01:00:00 AM EDT [facility] ([facility]) Attender: Corey Basilio 05/01/2021 12:00:00 AM EDT [facility] ([facility]) Unknown [address] [facility] [address] 04/03/2021 12:00:00 AM EDT eCW1 ([facility]) Extended Individual Psychotherapy - 45 min Attender: Corey Basilio [facility] 03/26/2021 10:45:00 AM EDT - 03/26/2021 10:45:00 AM EDT [facility] ([facility]) Attender: Corey Basilio 03/26/2021 12:00:00 AM EDT [facility] ([facility]) Steven Veloz MD: [address] [place] [address], Ph. Attender: Steven Veloz MD [facility] 03/22/2021 12:00:00 AM EDT JEFF ([facility]) Steven Veloz MD: [address] [place] [address]1 [address], Ph. Attender: Steven Veloz MD [facility] 03/22/2021 12:00:00 AM EDT JEFF ([facility]) Steven Veloz MD: [address] [place] [address], Ph. Attender: Steven Veloz MD [facility] 03/22/2021 12:00:00 AM EDT JEFF ([facility]) Steven Veloz MD: [address] [place] [address], Ph. Attender: Steven Veloz MD [facility] 03/22/2021 12:00:00 AM EDT JEFF ([facility]) Steven Veloz MD: [address] [place] [address]7 [address], Ph. Attender: Steven Veloz MD [facility] 03/22/2021 12:00:00 AM EDT JEFF ([facility]) Steven Veloz MD: [address] [place] [address], Ph. Attender: Steven Veloz MD [facility] 03/22/2021 12:00:00 AM EDT JEFF ([facility]) Outpatient Attender: PARAM VENTURA [facility] Office 02/11 09:45:00 AM EDT [facility] ([facility] Whitney Flores PA-C: [address], [place] [address], Ph. Attender: Whitney [facility] 03/02/2021 12:00:00 AM EDT [place] ([facility]) Whitney Flores PA-C: [address], [place] [address], Ph. Attender: Whitney [facility] 03/02/2021 12:00:00 AM EDT [place] ([facility]) Whitney Flores PA-C: [address], [place] [address], Ph. Attender: Whitney [facility] 03/02/2021 12:00:00 AM EDT [place] ([facility]) Whitney Flores PA-C: [address], [place] [address], Ph. Attender: hWitney [facility] 03/02/2021 12:00:00 AM EDT [place] ([facility]) Whitney Flores PA-C: [address], [place] [address], Ph. Attender: Whitney [facility] 03/02/2021 12:00:00 AM EDT [place] ([facility]) Whitney Flores PA-C: [address], [place] [address], Ph. Attender: Whitney [facility] 03/02/2021 12:00:00 AM EDT JEFF ([facility]) Whitney Flores PA-C: [address] [place] [address], Ph. Attender: Whitney [facility] 03/02/2021 12:00:00 AM EDT JEFF ([facility]) Extended Individual Psychotherapy - 45 min Attender: [facility] Chetna [facility] 02/26/2021 12:00:00 PM EDT - 02/26/2021 12:00:00 PM EDT [facility] ([facility]) Attender: Corey Basilio 02/26/2021 12:00:00 AM EDT [facility] ([facility]) Unknown [address] [facility] [address] 02/21/2021 12:00:00 AM EDT eCW1 ([facility]) Steven Veloz MD: [address] [place] [phone], Ph. Attender: Steven Veloz MD [facility] 02/12/2021 12:00:00 AM EDT JFEF ([facility]) Steven Veloz MD: [address] [place] [address], Ph. Attender: Steven Veloz MD [facility] 02/12/2021 12:00:00 AM EDT JEFF ([facility]) Steven Veloz MD: [address] [place] [phone], Ph. Attender: Steven Veloz MD [facility] 02/12/2021 12:00:00 AM EDT JEFF ([facility]) Steven Veloz MD: [address] [place] [address], Ph. Attender: Steven Veloz MD [facility] 02/12/2021 12:00:00 AM EDT JEFF ([facility]) Steven Veloz MD: [address] [place] [address]8 [address], Ph. Attender: Steven Veloz MD [facility] 02/12/2021 12:00:00 AM EDT JE[facility] ([facility]) Steven Veloz MD: [address] [place] [address], Ph. Attender: Steven Veloz MD [facility] 02/12/2021 12:00:00 AM EDT JEFF ([facility]) Steven Veloz MD: [address] [place] [address]7 [address], Ph. Attender: Steven Veloz MD [facility] 02/12/2021 12:00:00 AM EDT JE[facility] ([facility]) Steven Veloz MD: [address] [place] [address]4 [address], Ph. Attender: Steven Veloz MD [facility] 02/12/2021 12:00:00 AM EDT JEFF ([facility]) Steven Veloz MD: [address] [place] [address]1 [address], Ph. Attender: Steven Veloz MD [facility] 02/12/2021 12:00:00 AM EDT JE[facility] ([facility]) Brief Individual Psychotherapy - 30 min Attender: Corey Basilio [facility] 02/07/2021 11:30:00 AM EDT - 02/07/2021 11:30:00 AM EDT [facility] ([facility]) Attender: Corey Basilio 02/07/2021 12:00:00 AM EDT [facility] ([facility]) [place] [address] [facility] [address] 01/24/2021 12:00:00 AM EDT eCW1 ([facility]) [id number]"Psychotherapy Attender: Corey Basilio [facility] [place] 01/18/2021 06:00:00 AM EDT - 01/18/2021 06:00:00 AM EDT [facility] ([facility]) Attender: Corey Basilio 01/18/2021 12:00:00 AM EDT [facility] ([facility]) Steven Veloz MD: [address] [place] [address]2 [address], Ph. Attender: Steven Veloz MD [facility] 01/09/2021 12:00:00 AM EDT JEFF ([facility]) Steven Veloz MD: [address] [place] [address]1 [address], Ph. Attender: Steven Veloz MD [facility] 01/09/2021 12:00:00 AM EDT JEFF ([facility]) Steven Veloz MD: [address] [place] [address], Ph. Attender: Steven Veloz MD [facility] 01/09/2021 12:00:00 AM EDT JEFF ([facility]) Steven Veloz MD: [address] [place] [address]-4 [address], Ph. Attender: Steven Veloz MD [facility] 01/09/2021 12:00:00 AM EDT JEFF ([facility]) Steven Veloz MD: [address] [place] [address]6 [address], Ph. Attender: Steven Veloz MD [facility] 01/09/2021 12:00:00 AM EDT JEFF ([facility]) Steven Veloz MD: [address] [place] [address]-8 [address], Ph. Attender: Steven Veloz MD [facility] 01/09/2021 12:00:00 AM EDT JE[facility] ([facility]) Steven Veloz MD: [address] [place] [address]-6 [address], Ph. Attender: Steven Veloz MD [facility] 01/09/2021 12:00:00 AM EDT JE[facility] ([facility]) Steven Veloz MD: [address] [place] [address]-5 [address], Ph. Attender: Steven Veloz MD [facility] 01/09/2021 12:00:00 AM EDT JE[facility] ([facility]) Steven Veloz MD: [address] [place] [address]-7 [address], Ph. Attender: Steven Veloz MD [facility] 01/09/2021 12:00:00 AM EDT JE[facility] ([facility]) Steven Veloz MD: [address] [place] [address]-0 504, Ph. Attender: Steven Veloz MD [facility] 01/09/2021 12:00:00 AM EDT JEFF ([facility]) Extended Individual Psychotherapy - 45 min Attender: Corey Basilio [facility] 12/28/2020 12:00:00 PM EDT - 12/28/2020 12:00:00 PM EDT [facility] ([facility]) Attender: Corey Basilio 12/28/2020 12:00:00 AM EDT [facility] ([facility]) Steven Veloz MD: [address] [place] [address]-4 [address], Ph. Attender: Steven Veloz MD [facility] 12/14/2020 12:00:00 AM EST JE[facility] ([facility]) Steven Veloz MD: [address] [place] [address]-8 504, Ph. Attender: Steven Veloz MD [facility] 12/14/2020 12:00:00 AM EST JE[facility] ([facility]) Steven Veloz MD: [address] [place] [address]-9 504, Ph. Attender: Steven Veloz MD [facility] 12/14/2020 12:00:00 AM EST JEFF ([facility]) Steven Veloz MD: [address] [place] [address]-9 504, Ph. Attender: Steven Veloz MD [facility] 12/14/2020 12:00:00 AM EST JE[facility] ([facility]) Steven Veloz MD: [address] [place] [address]-7 504, Ph. Attender: Steven Veloz MD [facility] 12/14/2020 12:00:00 AM EST JEFF ([facility]) Steven Veloz MD: [address] [place] [address]-1 504, Ph. Attender: Steven Veloz MD [facility] 12/14/2020 12:00:00 AM EST JEFF ([facility]) Steven Veloz MD: [address] [place] [address]-2 504, Ph. Attender: Steven Veloz MD [facility] 12/14/2020 12:00:00 AM EST JE[facility] ([facility]) Steven Veloz MD: [address] [place] [address]-2 504, Ph. Attender: Steven Veloz MD [facility] 12/14/2020 12:00:00 AM EST JE[facility] ([facility]) Steven Veloz MD: [address] [place] [address]-4 504, Ph. Attender: Steven Veloz MD [facility] 12/14/2020 12:00:00 AM EST JE[facility] ([facility]) Steven Veloz MD: [address] [place] [address]-9 504, Ph. Attender: Steven Veloz MD [facility] 12/14/2020 12:00:00 AM EST [facility] ([facility]) Steven Veloz MD: [address] [place] [address]-1 504, Ph. Attender: Steven Veloz MD [facility] 12/14/2020 12:00:00 AM EST JEFF ([facility]) Outpatient Attender: Adrienne García [facility]-MANAGER BOOKS [facility] 12/11/2020 09:30:00 AM EST - 12/11/2020 09:30:00 AM EST [facility] ([facility]) Attender: Adrienne García [facility]-MANAGER BOOKS 12/11/2020 12: 00:00 AM EST [facility] ([facility]) Extended Individual Psychotherapy - 45 min Attender: Glenna Chetna [facility] 12/07/2020 12:00:00 PM EST - 12/07/2020 12:00:00 PM EST [facility] ([facility]) Attender: Corey Basilio 12/07/2020 12:00:00 AM EST [facility] ([facility]) Outpatient [facility] [address] 12/06/2020 12:00:00 AM EST eCW1 ([facility]) Outpatient Attender: LIAM SHAH MANAGER BOOKS Physical Therapy 02:30:00 PM EST [facility] ([facility]) Steven Veloz MD: [address] [place] [address]-2 504, Ph. Attender: Steven Veloz MD [facility] 11/10/2020 12:00:00 AM EST JE[facility] ([facility]) Steven Veloz MD: [address] [place] [address]-2 504, Ph. Attender: Steven Veloz MD [facility] 11/10/2020 12:00:00 AM EST JEFF ([facility]) Steven Veloz MD: [address] [place] [address]-9 504, Ph. Attender: Steven Veloz MD [facility] 11/10/2020 12:00:00 AM EST JE[facility] ([facility]) Steven Veloz MD: [address] [place] [address]-0 504, Ph. Attender: Steven Veloz MD [facility] 11/10/2020 12:00:00 AM EST [facility] ([facility]) Steven Veloz MD: [address] [place] [address]-2 504, Ph. Attender: Steven Veloz MD [facility] 11/10/2020 12:00:00 AM EST [facility] ([facility]) Steven Veloz MD: [address] [place] [address]-4 504, Ph. Attender: Steven Veloz MD [facility] 11/10/2020 12:00:00 AM EST [facility] ([facility]) Steven Veloz MD: [address] [place] [address]-8 504, Ph. Attender: Steven Veloz MD [facility] 11/10/2020 12:00:00 AM EST [facility] ([facility]) Steven Veloz MD: [address] [place] [address]-6 504, Ph. Attender: Steven Veloz MD [facility] 11/10/2020 12:00:00 AM EST [facility] ([facility]) Steven Veloz MD: [address] [place] [address]-1 504, Ph. Attender: Steven Veloz MD [facility] 11/10/2020 12:00:00 AM EST JE[facility] ([facility]) Steven Veloz MD: [address] [place] [address]0 [address], Ph. Attender: Steven Veloz MD [facility] 11/10/2020 12:00:00 AM EST [facility] ([facility]) Steven Veloz MD: [address] [place] [address]-4 504, Ph. Attender: Steven Veloz MD [facility] 11/10/2020 12:00:00 AM EST [facility] [facility]) Steven Veloz MD: [address] [place] [address], Ph. Attender: Steven Veloz MD [facility] 11/10/2020 12:00:00 AM EST JEFF ([facility]) TEMPMHCTelemed 30" Psychotherapy Attender: Corey Basilio [facility] 11/07/2020 12:00:00 PM EST - 11/07/2020 12:00:00 PM EST [facility] ([facility]) Attender: Corey Basilio 11/07/2020 12:00:00 AM EST [facility] ([facility]) Outpatient [address] [facility] [address] [address] 11/01/2020 12:00:00 AM EST eCW1 ([facility], [facility]) Outpatient Attender: Adrienne García [facility] 10/25/2020 10:00:00 AM EST - 10/25/2020 10:00:00 AM EST [facility] ([facility]) Attender: Adrienne García [facility] 10/25/2020 12: 00:00 AM EST [facility] ([facility]) Extended Individual Psychotherapy - 45 min [facility] 10/20/2020 12:00:00 PM EST - 10/20/2020 12:00:00 PM EST [facility] ([facility]) Attender: Corey Basilio 10/20/2020 12:00:00 AM EST [facility] ([facility]) Outpatient Attender: LIAM SHAH NP Physical Therapy 12:15:00 PM EST MEDENT ([facility]) Unknown [address] [facility] [address] [address] 10/16/2020 12:00:00 AM EST eCW1 ([facility]) Steven Veloz MD: [address] [place] [phone], Ph. Attender: Steven Veloz MD [facility] 10/03/2020 12:00:00 AM EST JEFF ([facility]) Steven Veloz MD: [address] [place] [address], Ph. Attender: Steven Veloz MD [facility] 10/03/2020 12:00:00 AM EST JEFF ([facility]) Steven Veloz MD: [address] [place] [phone], Ph. Attender: Steven Veloz MD [facility] 10/03/2020 12:00:00 AM EST JEFF ([facility]) Steven Veloz MD: [address] [place] [address], Ph. Attender: Steven Veloz MD [facility] 10/03/2020 12:00:00 AM EST JEFF ([facility]) Steven Veloz MD: [address] [place] [address], Ph. Attender: Steven Veloz MD [facility] 10/03/2020 12:00:00 AM EST JEFF ([facility]) Steven Veloz MD: [address] [place] [address], Ph. Attender: Steven Veloz MD [facility] 10/03/2020 12:00:00 AM EST JEFF ([facility]) Steven Veloz MD: [address] [place] [address], Ph. Attender: Steven Veloz MD [facility] 10/03/2020 12:00:00 AM EST JEFF ([facility]) Steven Veloz MD: [address] [place] [address], Ph. Attender: Steven Veloz MD [facility] 10/03/2020 12:00:00 AM EST JEFF ([facility]) Steven Veloz MD: [address] [place] [address], Ph. Attender: Steven Veloz MD [facility] 10/03/2020 12:00:00 AM EST JEFF ([facility]) Steven Veloz MD: [address] [place] [address], Ph. Attender: Steven Vleoz MD [facility] 10/03/2020 12:00:00 AM EST JEFF ([facility]) Steven Veloz MD: [address] [place] [address], Ph. Attender: Steven Veloz MD [facility] 10/03/2020 12:00:00 AM EST JEFF ([facility]) Steven Veloz MD: [address] [place] [address], Ph. Attender: Steven Veloz MD [facility] 10/03/2020 12:00:00 AM EST JEFF ([facility]) Steven Veloz MD: [address] [place] [address], Ph. Attender: Steven Veloz MD [facility] 10/03/2020 12:00:00 AM EST JEFF ([facility]) Steven Veloz MD: [address] [place] [phone], Ph. Attender: Steven Veloz MD [facility] 10/03/2020 12:00:00 AM EST JEFF ([facility]) Attender: Corey Basilio 09/28/2020 12:00:00 AM EST [facility] ([facility]) Extended Individual Psychotherapy - 45 min Attender: Corey Basilio [facility] 09/26/2020 12:00:00 PM EST - 09/26/2020 12:00:00 PM EST [facility] ([facility]) Outpatient Attender: PARAM VENTURA [facility] 09/12 01:00:00 PM EST MEDENT ([facility] Outpatient Attender: Adrienne García [facility] 09/21/2020 09:30:00 AM EST - 09/21/2020 09:30:00 AM EST [facility] ([facility]) Attender: Adrienne Ricky [facility] 09/21/2020 12: 00:00 AM EST [facility] ([facility]) Extended Individual Psychotherapy - 45 min Att[facility]: [facility] 09/11/2020 02:00:00 AM EST - 09/11/2020 02:00:00 AM EST [facility] ([facility]) Attender: Corey Basilio 09/11/2020 12:00:00 AM EST [facility] ([facility]) Steven Veloz MD: [address] [place] [address], Ph. Attender: Steven Veloz MD [facility] 09/01/2020 12:00:00 AM EST JEFF ([facility]) Steven Veloz MD: [address] [place] [address], Ph. Attender: Steven Veloz MD [facility] 09/01/2020 12:00:00 AM EST JEFF ([facility]) Steven Veloz MD: [address] [place] [address], Ph. Attender: Steven Veloz MD [facility] 09/01/2020 12:00:00 AM EST JEFF ([facility]) Steven Veloz MD: [address] [place] [address], Ph. Attender: Steven Veloz MD [facility] 09/01/2020 12:00:00 AM EST JEFF ([facility]) Steven Veloz MD: [address] [place] [address], Ph. Attender: Steven Veloz MD [facility] 09/01/2020 12:00:00 AM EST JEFF ([facility]) Steven Veloz MD: [address] [place] [address], Ph. Attender: Steven Veloz MD [facility] 09/01/2020 12:00:00 AM EST JEFF ([facility]) Steven Veloz MD: [address] [place] [address], Ph. Attender: Steven Veloz MD [facility] 09/01/2020 12:00:00 AM EST JEFF ([facility]) Steven Veloz MD: [address] [place] [address], Ph. Attender: Steven Veloz MD [facility] 09/01/2020 12:00:00 AM EST JEFF ([facility]) Steven Veloz MD: [address] [place] [address], Ph. Attender: Steven Veloz MD [facility] 09/01/2020 12:00:00 AM EST JEFF ([facility]) Steven Veloz MD: [address] [place] [address], Ph. Attender: Steven Veloz MD [facility] 09/01/2020 12:00:00 AM EST JEFF ([facility]) Steven Veloz MD: [address] [place] [address], Ph. Attender: Steven Veloz MD [facility] 09/01/2020 12:00:00 AM EST JEFF ([facility]) Steven Veloz MD: [address] [place] [address], Ph. Attender: Steven Veloz MD [facility] 09/01/2020 12:00:00 AM EST JEFF ([facility]) Steven Veloz MD: [address] [place] [address], Ph. Attender: Steven Veloz MD [facility] 09/01/2020 12:00:00 AM EST JEFF ([facility]) Steven Veloz MD: [address] [place] [address], Ph. Attender: Steven Veloz MD [facility] 09/01/2020 12:00:00 AM EST JEFF ([facility]) Steven Veloz MD: [address] [place] [address], Ph. Attender: Steven Veloz MD [facility] 09/01/2020 12:00:00 AM EST JEFF ([facility]) Steven Veloz MD: [address] [place] [address], Ph. Attender: Steven Veloz MD [facility] 08/25/2020 12:00:00 AM EST JEFF ([facility]) Steven Veloz MD: [address] [place] [address], Ph. Attender: Steven Veloz MD [facility] 08/25/2020 12:00:00 AM EST JEFF ([facility]) Steven Veloz MD: [address] [place] [address], Ph. Attender: Steven Veloz MD [facility] 08/25/2020 12:00:00 AM EST JEFF ([facility]) Steven Veloz MD: [address] [place] [address], Ph. Attender: Steven Veloz MD [facility] 08/25/2020 12:00:00 AM EST JEFF ([facility]) Steven Veloz MD: [address] [place] [address], Ph. Attender: Steven Veloz MD [facility] 08/25/2020 12:00:00 AM EST JEFF ([facility]) Steven Veloz MD: [address] [place] [address], Ph. Attender: Steven Veloz MD [facility] 08/25/2020 12:00:00 AM EST JEFF ([facility]) Steven Veloz MD: [address] [place] [address], Ph. Attender: Steven Veloz MD [facility] 08/25/2020 12:00:00 AM EST JEFF ([facility]) Steven Veloz MD: [address] [place] [address], Ph. Attender: Steven Veloz MD [facility] 08/25/2020 12:00:00 AM EST JEFF ([facility]) Steven Veloz MD: [address] [place] [address], Ph. Attender: Steven Veloz MD [facility] 08/25/2020 12:00:00 AM EST JEFF ([facility]) Steven Veloz MD: [address] [place] [address], Ph. Attender: Steven Veloz MD [facility] 08/25/2020 12:00:00 AM EST JEFF ([facility]) Steven Veloz MD: [address] [place] [address], Ph. Attender: Steven Veloz MD [facility] 08/25/2020 12:00:00 AM EST JEFF ([facility]) Steven Veloz MD: [address] [place] [address], Ph. Attender: Steven Veloz MD [facility] 08/25/2020 12:00:00 AM EST JEFF ([facility]) Steven Veloz MD: [address] [place] [address], Ph. Attender: Steven Veloz MD [facility] 08/25/2020 12:00:00 AM EST JEFF ([facility]) Steven Veloz MD: [address] [place] [address], Ph. Attender: Steven Veloz MD [facility] 08/25/2020 12:00:00 AM EST JEFF ([facility]) Steven Veloz MD: [address] [place] [address], Ph. Attender: Steven Veloz MD [facility] 08/25/2020 12:00:00 AM EST JEFF ([facility]) Outpatient Attender: Adrienne García [facility] 08/24/2020 09:30:00 AM EST - 08/24/2020 09:30:00 AM EST [facility] ([facility]) Attender: Adrienne García [facility] 08/24/2020 12: 00:00 AM EST [facility] ([facility]) Outpatient Attender: LIAM SHAH NP Physical Therapy 02:15:00 PM EST MEDENT ([facility]) Brief Individual Psychotherapy - 30 min Attender: Cesilia rivera [facility] 08/17/2020 12:00:00 PM EST - 08/17/2020 12:00:00 PM EST [facility] ([facility]) Attender: Cesilia Narvaez 08/17/2020 12:00:00 AM EST [facility] ([facility]) Outpatient Attender: JLUIS HINTON 08/10/2020 02:40:00 PM EDT [facility] Steven Veloz MD: [address] [place], [place] [address], [place] [address], Ph. Attender: Steven Veloz MD [facility] 08/10/2020 12:00:00 AM EDT JEFF ([facility]) Steven Veloz MD: [address] [place] [address], Ph. Attender: Steven Veloz MD [facility] 08/10/2020 12:00:00 AM EDT JEFF ([facility]) Steven Veloz MD: [address] [place] [address], Ph. Attender: Steven Veloz MD [facility] 08/10/2020 12:00:00 AM EDT JEFF ([facility]) Steven Veloz MD: [address] [place] [address], Ph. Attender: Steven Veloz MD [facility] 08/10/2020 12:00:00 AM EDT JEFF ([facility]) Steven Veloz MD: [address] [place] [address], Ph. Attender: Steven Veloz MD [facility] 08/10/2020 12:00:00 AM EDT JEFF ([facility]) Steven Veloz MD: [address] [place] [address], Ph. Attender: Steven Veloz MD [facility] 08/10/2020 12:00:00 AM EDT JEFF ([facility]) Steven Veloz MD: [address] [place] [address], Ph. Attender: Steven Veloz MD [facility] 08/10/2020 12:00:00 AM EDT JEFF ([facility]) Steven Veloz MD: [address] [place] [address], Ph. Attender: Steven Veloz MD [facility] 08/10/2020 12:00:00 AM EDT JEFF ([facility]) Steven Veloz MD: [address] [place] [address], Ph. Attender: Steven Veloz MD [facility] 08/10/2020 12:00:00 AM EDT JEFF ([facility]) Steven eVloz MD: [address] [place] [address], Ph. Attender: Steven Veloz MD [facility] 08/10/2020 12:00:00 AM EDT JEFF ([facility]) Steven Veloz MD: [address] [place] [address], Ph. Attender: Steven Veloz MD [facility] 08/10/2020 12:00:00 AM EDT JEFF ([facility]) Steven Veloz MD: [address] [place] [address], Ph. Attender: Steven Veloz MD [facility] 08/10/2020 12:00:00 AM EDT JEFF ([facility]) Steven Veloz MD: [address] [place] [address], Ph. Attender: Steven Veloz MD [facility] 08/10/2020 12:00:00 AM EDT JEFF ([facility]) Steven Veloz MD: [address] [place] [address], Ph. Attender: Steven Veloz MD [facility] 08/10/2020 12:00:00 AM EDT JEFF ([facility]) Steven Veloz MD: [address] [place] [address], Ph. Attender: Steven Veloz MD [facility] 08/10/2020 12:00:00 AM EDT JEFF ([facility]) Steven Veloz MD: [address] [place] [address], Ph. Attender: Steven Veloz MD [facility] 08/10/2020 12:00:00 AM EDT JEFF ([facility]) Steven Veloz MD: [address] [place] [address], Ph. Attender: Steven Veloz MD [facility] 08/10/2020 12:00:00 AM EDT JEFF ([facility]) Outpatient Attender: Kinza BELLA 07/28/2020 02: 10:01 PM EDT [facility] Outpatient Attender: JLUIS BAZZI 07/28/2020 01:17:00 PM EDT [facility] Outpatient Attender: Adrienne García [facility] 07/25/2020 09:00:00 AM EDT - 07/25/2020 09:00:00 AM EDT [facility] ([facility]) Attender: Adrienne García [facility] 07/25/2020 12: 00:00 AM EDT [facility] ([facility]) Brief Individual Psychotherapy - 30 min Attender: Cesilia rivera [facility] 07/20/2020 04:00:00 AM EDT - 07/20/2020 04:00:00 AM EDT [facility] ([facility]) Attender: Cesilia Narvaez 07/20/2020 12:00:00 AM EDT [facility] ([facility]) Outpatient Attender: Kinza BELLA FP 07/19/2020 08: 05:59 AM EDT [facility] TEMPMHCTelemed 30" Psychotherapy Attender: Cesilia [facility] Krista Acevedo 07/06/2020 04:30:00 AM EDT - 07/06/2020 04:30:00 AM EDT [facility] ([facility]) Attender: Cesilia Bryanan 07/06/2020 12:00:00 AM EDT [facility] ([facility]) Outpatient Attender: Kinza Yanes PATIENT FINANCIAL SERVICES COORDINATOR-BC FP 07/05/2020 10: 30:05 AM EDT [facility] Outpatient Attender: Kinza Yanes PATIENT FINANCIAL SERVICES COORDINATOR-BC FP 06/22/2020 02: 49:39 PM EDT [facility] Functional Status Immunizations Vaccine Date Status Description Data Source(s) COVID-19, mRNA, LNP-S, PF, 100 mcg/0.5 mL dose 01/10/2021 04 :55:18 PM EDT completed .5 mL [facility]) COVID-19, mRNA, LNP-S, PF, 100 mcg/0.5 mL dose 01/10/2021 04 :55:18 PM EDT completed .5 mL [facility]) COVID-19, mRNA, LNP-S, PF, 100 mcg/0.5 mL dose 01/10/2021 04 :55:18 PM EDT completed .5 mL [facility]) COVID-19, mRNA, LNP-S, PF, 100 mcg/0.5 mL dose 01/10/2021 04 :55:18 PM ED[facility], mRNA, LNP-S, PF, 100 mcg/0.5 mL dose 01/10/2021 04 :55:18 PM EDT completed .5 mL [facility]) COVID-19, mRNA, LNP-S, PF, 100 mcg/0.5 mL dose 01/10/2021 04 :55:18 PM EDT completed .5 mL [facility]) COVID-19, mRNA, LNP-S, PF, 100 mcg/0.5 mL dose 01/10/2021 04 :55:18 PM EDT completed .5 mL JEFF ([facility]) COVID-19, mRNA, LNP-S, PF, 100 mcg/0.5 mL dose 01/10/2021 04 :55:18 PM EDT completed .5 mL [facility] ([facility]) COVID-19, mRNA, LNP-S, PF, 100 mcg/0.5 mL dose 01/10/2021 04 :55:18 PM EDT completed .5 mL [facility] ([facility]) COVID-19, mRNA, LNP-S, PF, 100 mcg/0.5 mL dose 01/10/2021 04 :55:18 PM EDT completed .5 mL [facility] ([facility]) COVID-19 VACCINE Moderna 01/10/2021 12:00:00 AM EDT completed [place] Vaccine Series Complete: YESThis Data wa s Submitted to [facility] Via [employer]. COVID-19, mRNA, LNP-S, PF, 100 mcg/0.5 mL dose 12/14/2020 05 :16:13 PM EST completed .5 mL [facility] ([facility]) COVID-19, mRNA, LNP-S, PF, 100 mcg/0.5 mL dose 12/14/2020 05 :16:13 PM EST completed .5 mL [facility] ([facility]) COVID-19, mRNA, LNP-S, PF, 100 mcg/0.5 mL dose 12/14/2020 05 :16:13 PM EST completed .5 mL [facility] ([facility]) COVID-19, mRNA, LNP-S, PF, 100 mcg/0.5 mL dose 12/14/2020 05 :16:13 PM EST completed .5 mL [facility] ([facility]) COVID-19, mRNA, LNP-S, PF, 100 mcg/0.5 mL dose 12/14/2020 05 :16:13 PM EST completed .5 mL [facility]FF ([facility]) COVID-19, mRNA, LNP-S, PF, 100 mcg/0.5 mL dose 12/14/2020 05 :16:13 PM EST completed .5 mL [facility] ([facility]) COVID-19, mRNA, LNP-S, PF, 100 mcg/0.5 mL dose 12/14/2020 05 :16:13 PM EST completed .5 mL [facility] ([facility]) COVID-19, mRNA, LNP-S, PF, 100 mcg/0.5 mL dose 12/14/2020 05 :16:13 PM EST completed .5 mL [facility] ([facility]) COVID-19, mRNA, LNP-S, PF, 100 mcg/0.5 mL dose 12/14/2020 05 :16:13 PM EST completed .5 mL [facility] ([facility]) COVID-19, mRNA, LNP-S, PF, 100 mcg/0.5 mL dose 12/14/2020 05 :16:13 PM EST completed .5 mL [facility] ([facility]) COVID-19, mRNA, LNP-S, PF, 100 mcg/0.5 mL dose 12/14/2020 05 :16:13 PM EST completed .5 mL [facility] ([facility]) COVID-19 VACCINE Moderna 12/14/2020 12:00:00 AM EST completed [place] Vaccine Series Complete: NOThis Data was Submitted to [facility] Via [employer]. New in 2011. IIV4 08/10/2020 03:51:00 PM EDT completed .5 mL JEFF ([facility]) New in 2011. IIV4 08/10/2020 03:51:00 PM EDT completed .5 mL [facility] ([facility]) New in 2011. IIV4 08/10/2020 03:51:00 PM EDT completed .5 mL [facility] ([facility]) New in 2011. IIV4 08/10/2020 03:51:00 PM EDT completed .5 mL [facility] ([facility]) New in 2011. IIV4 08/10/2020 03:51:00 PM EDT completed .5 mL [facility] ([facility]) New in 2011. IIV4 08/10/2020 03:51:00 PM EDT completed .5 mL [facility] ([facility]) New in 2011. IIV4 08/10/2020 03:51:00 PM EDT completed .5 mL [facility] ([facility]) New in 2011. IIV4 08/10/2020 03:51:00 PM EDT completed .5 mL [facility] ([facility]) New in 2011. IIV4 08/10/2020 03:51:00 PM EDT completed .5 mL [facility] ([facility]) New in 2011. IIV4 08/10/2020 03:51:00 PM EDT completed .5 mL [facility] ([facility]) New in 2011. IIV4 08/10/2020 03:51:00 PM EDT completed .5 mL [facility] ([facility]) New in 2011. IIV4 08/10/2020 03:51:00 PM EDT completed .5 mL [facility] ([facility]) New in 2011. IIV4 08/10/2020 03:51:00 PM EDT completed .5 mL [facility] ([facility]) New in 2011. IIV4 08/10/2020 03:51:00 PM EDT completed .5 mL [facility] ([facility]) New in 2011. IIV4 08/10/2020 03:51:00 PM EDT completed .5 mL [facility] ([facility]) Medications Medication Brand Name Start [...] propionate 0.05 MG/ACTUAT Metered Dose Shamir al Lotus 50 mcg/actuation FLUTICASONE PROPIONATE 07/21/2021 12:00:00 AM [...] 12:00:00 AM EDT completed Alcohol Prep Pads [facility] ([facility]) ALCOHOL ANTISEPTIC PADS 06/20/2021 12:00:00 AM EDT [...] 30 mg by mouth completed <td ID="Medic ationRxNorm_4">629066</td><td ID="MedicationMedication_4">buspirone</td><td ID="MedicationRoute_4">by mouth</td><td ID="MedicationRouteConcept_4">B91164</td><td ID="MedicationStartDate_4">06/07/2021</td><td ID="MedicationStopDate_4">08/06/2021</td><td ID="MedicationDosageFrequency_4">twice a day</td><td ID="MedicationDuration_4">30</td><td ID="MedicationFormulaStrength_4">30 mg</td><td ID="MedicationDosageForm_4">tablet</td><td ID="MedicationDosageFormCode_4"></td><td ID="MedicationDosageDescription_4"></td><td ID="MedicationMedicationId_4">[id number]</td><td ID="MedicationAccount_4">[id number]</td><td ID="MedicationNpid_4">[id number]</td><td ID="MedicationAuthorFirstName_4">Susanne</td><td ID="MedicationAuthorLastName_4">Irvin</td><td ID="MedicationTaxonomyCode_4">[id number]</td><td ID="MedicationTaxonomyDesc_4">Nurse Practitioner</td><td ID="MedicationPhoneNumber_4">[phone]</td> [facility] ([facility]) buspirone hydrochloride 30 MG Oral Tablet buspirone 2020 12:00:00 AM EDT 30 mg by mouth completed <td ID="Medic ationRxNorm_6">171747</td><td ID="MedicationMedication_6">buspirone</td><td ID="MedicationRoute_6">by mouth</td><td ID="MedicationRouteConcept_6">K15616</td><td ID="MedicationStartDate_6">06/07/2021</td><td ID="MedicationStopDate_6">08/06/2021</td><td ID="MedicationDosageFrequency_6">twice a day</td><td ID="MedicationDuration_6">30</td><td ID="MedicationFormulaStrength_6">30 mg</td><td ID="MedicationDosageForm_6">tablet</td><td ID="MedicationDosageFormCode_6"></td><td ID="MedicationDosageDescription_6"></td><td ID="MedicationMedicationId_6">[id number]</td><td ID="MedicationAccount_6">[id number]</td><td ID="MedicationNpid_6">[id number]</td><td ID="MedicationAuthorFirstName_6">Susanne</td><td ID="MedicationAuthorLastName_6">Irvin</td><td ID="MedicationTaxonomyCode_6">[id number]</td><td ID="MedicationTaxonomyDesc_6">Nurse Practitioner</td><td ID="MedicationPhoneNumber_6">[phone]</td> [facility]) 400 mg 06/05/2021 12:00:00 AM EDT capsule 90 TAKE ONE CAPSULE BY MOUTH THREE TIMES A DAY TAKE ONE CAPSULE BY MOUTH THREE TIMES A DAY SOLD: 06/05/2021 [facility] 800 mg 05/30/2021 12:00:00 AM EDT [...] AM EDT 0.5 mg completed <td ID="Medicat ionRxNorm_3">030753</td><td ID="MedicationMedication_3">clonazepam</td><td ID="MedicationRoute_3"></td><td ID="MedicationRouteConcept_3"></td><td ID="MedicationStartDate_3">05/30/2021</td><td ID="MedicationStopDate_3">06/29/2021</td><td ID="MedicationDosageFrequency_3"></td><td ID="MedicationDuration_3">30</td><td ID="MedicationFormulaStrength_3">0.5 mg</td><td ID="MedicationDosageForm_3">tablet</td><td ID="MedicationDosageFormCode_3"></td><td ID="MedicationDosageDescription_3"></td><td ID="MedicationMedicationId_3">[id number]</td><td ID="MedicationAccount_3">[id number]</td><td ID="MedicationNpid_3">[id number]</td><td ID="MedicationAuthorFirstName_3">Russell</td><td ID="MedicationAuthorLastName_3">Montenegro</td><td ID="MedicationTaxonomyCode_3">[id number]</td><td ID="MedicationTaxonomyDesc_3">Nurse Practitioner</td><td ID="MedicationPhoneNumber_3">[phone]</td> [facility] 800 mg 05/30/2021 12:00:00 AM EDT tablet 90 TAKE ONE TABLET BY MOUTH THREE TIMES A DAY NEEDED MAXIMUM DAILY DOSE = THREE TABLETS TAKE ONE TABLET BY MOUTH THREE TIMES A DAY NEEDED MAXIMUM DAILY DOSE = THREE TABLETS SOLD: 06/25/2021 [facility] 24 HR Metformin hydrochloride 500 MG Extended [...] 30 mg by mouth completed <td ID="Medic ationRxNorm_5">861403</td><td ID="MedicationMedication_5">buspirone</td><td ID="MedicationRoute_5">by mouth</td><td ID="MedicationRouteConcept_5">U57461</td><td ID="MedicationStartDate_5">04/10/2021</td><td ID="MedicationStopDate_5">05/10/2021</td><td ID="MedicationDosageFrequency_5">twice a day</td><td ID="MedicationDuration_5">30</td><td ID="MedicationFormulaStrength_5">30 mg</td><td ID="MedicationDosageForm_5">tablet</td><td ID="MedicationDosageFormCode_5"></td><td ID="MedicationDosageDescription_5"></td><td ID="MedicationMedicationId_5">[id number]</td><td ID="MedicationAccount_5">[id number]</td><td ID="MedicationNpid_5">[id number]</td><td ID="MedicationAuthorFirstName_5">Adrienne</td><td ID="MedicationAuthorLastName_5">[place]</td><td ID="MedicationTaxonomyCode_5">[id number]</td><td ID="MedicationTaxonomyDesc_5">Psychiatric/Mental Health</td><td ID="MedicationPhoneNumber_5">[phone]</td> [facility] ([facility]) 30 mg 04/10/2021 12:00:00 AM EDT [...] AM EDT 100 mg completed <td ID="Medica tionRxNorm_5">981809</td><td ID="MedicationMedication_5">trazodone</td><td ID="MedicationRoute_5"></td><td ID="MedicationRouteConcept_5"></td><td ID="MedicationStartDate_5">03/22/2021</td><td ID="MedicationStopDate_5"></td><td ID="MedicationDosageFrequency_5">at bedtime</td><td ID="MedicationDuration_5"></td><td ID="MedicationFormulaStrength_5">100 mg</td><td ID="MedicationDosageForm_5">tablet</td><td ID="MedicationDosageFormCode_5"></td><td ID="MedicationDosageDescription_5"></td><td ID="MedicationMedicationId_5">[id number]</td><td ID="MedicationAccount_5">[id number]</td><td ID="MedicationNpid_5">[id number]</td><td ID="MedicationAuthorFirstName_5">Adrienne</td><td ID="MedicationAuthorLastName_5">Ricky</td><td ID="MedicationTaxonomyCode_5">[id number]</td><td ID="MedicationTaxonomyDesc_5">Psychiatric/Mental Health</td><td ID="MedicationPhoneNumber_5">[phone]</td> [facility] ([facility]) Trazodone Hydrochloride 100 MG Oral Tablet trazodone 03/22 12:00:00 AM EDT 100 mg completed <td ID="Medica tionRxNorm_4">924591</td><td ID="MedicationMedication_4">trazodone</td><td ID="MedicationRoute_4"></td><td ID="MedicationRouteConcept_4"></td><td ID="MedicationStartDate_4">03/22/2021</td><td ID="MedicationStopDate_4"></td><td ID="MedicationDosageFrequency_4">at bedtime</td><td ID="MedicationDuration_4"></td><td ID="MedicationFormulaStrength_4">100 mg</td><td ID="MedicationDosageForm_4">tablet</td><td ID="MedicationDosageFormCode_4"></td><td ID="MedicationDosageDescription_4"></td><td ID="MedicationMedicationId_4">78460</td><td ID="MedicationAccount_4">[id number]</td><td ID="MedicationNpid_4">[id number]</td><td ID="MedicationAuthorFirstName_4">Adrienne</td><td ID="MedicationAuthorLastName_4">[place]</td><td ID="MedicationTaxonomyCode_4">[id number]</td><td ID="MedicationTaxonomyDesc_4">Psychiatric/Mental Health</td><td ID="MedicationPhoneNumber_4">[phone]</td> [facility] ([facility]) Trazodone Hydrochloride 100 MG Oral Tablet trazodone 03/22 12:00:00 AM EDT 100 mg completed <td ID="Medica tionRxNorm_2">278680</td><td ID="MedicationMedication_2">trazodone</td><td ID="MedicationRoute_2"></td><td ID="MedicationRouteConcept_2"></td><td ID="MedicationStartDate_2">03/22/2021</td><td ID="MedicationStopDate_2"></td><td ID="MedicationDosageFrequency_2">at bedtime</td><td ID="MedicationDuration_2"></td><td ID="MedicationFormulaStrength_2">100 mg</td><td ID="MedicationDosageForm_2">tablet</td><td ID="MedicationDosageFormCode_2"></td><td ID="MedicationDosageDescription_2"></td><td ID="MedicationMedicationId_2">[id number]</td><td ID="MedicationAccount_2">[id number]</td><td ID="MedicationNpid_2">[id number]</td><td ID="MedicationAuthorFirstName_2">Adrienne</td><td ID="MedicationAuthorLastName_2">Ricky</td><td ID="MedicationTaxonomyCode_2">[id number]</td><td ID="MedicationTaxonomyDesc_2">Psychiatric/Mental Health</td><td ID="MedicationPhoneNumber_2">[phone]</td> [facility] ([facility]) 800 mg 03/06/2021 12:00:00 AM EDT [...] 150 mg by mouth completed <td ID="Medica tionRxNorm_4">669249</td><td ID="MedicationMedication_4">lamotrigine</td><td ID="MedicationRoute_4">by mouth</td><td ID="MedicationRouteConcept_4">P39611</td><td ID="MedicationStartDate_4">02/22/2021</td><td ID="MedicationStopDate_4"></td><td ID="MedicationDosageFrequency_4">once a day</td><td ID="MedicationDuration_4"></td><td ID="MedicationFormulaStrength_4">150 mg</td><td ID="MedicationDosageForm_4">tablet</td><td ID="MedicationDosageFormCode_4"></td><td ID="MedicationDosageDescription_4"></td><td ID="MedicationMedicationId_4">[id number]</td><td ID="MedicationAccount_4">[id number]</td><td ID="MedicationNpid_4">[id number]</td><td ID="MedicationAuthorFirstName_4">Adrienne</td><td ID="MedicationAuthorLastName_4">Ricky</td><td ID="MedicationTaxonomyCode_4">[id number]</td><td ID="MedicationTaxonomyDesc_4">Psychiatric/Mental Health</td><td ID="MedicationPhoneNumber_4">[phone]</td> [facility] ([facility]) ziprasidone 80 MG Oral Capsule ZIPRASIDONE [...] 30 mg by mouth completed <td ID="Medic ationRxNorm_3">856194</td><td ID="MedicationMedication_3">buspirone</td><td ID="MedicationRoute_3">by mouth</td><td ID="MedicationRouteConcept_3">X28536</td><td ID="MedicationStartDate_3">02/22/2021</td><td ID="MedicationStopDate_3"></td><td ID="MedicationDosageFrequency_3">three times a day</td><td ID="MedicationDuration_3"></td><td ID="MedicationFormulaStrength_3">30 mg</td><td ID="MedicationDosageForm_3">tablet</td><td ID="MedicationDosageFormCode_3"></td><td ID="MedicationDosageDescription_3"></td><td ID="MedicationMedicationId_3">59060</td><td ID="MedicationAccount_3">[id number]</td><td ID="MedicationNpid_3">[id number]</td><td ID="MedicationAuthorFirstName_3">Adrienne</td><td ID="MedicationAuthorLastName_3">[place]</td><td ID="MedicationTaxonomyCode_3">[id number]</td><td ID="MedicationTaxonomyDesc_3">Psychiatric/Mental Health</td><td ID="MedicationPhoneNumber_3">[phone]</td> [facility] ([facility]) 150 mg 02/22/2021 12:00:00 AM EDT tablet 30 TAKE ONE TABLET BY MOUTH EVERY DAY TAKE ONE TABLET BY MOUTH EVERY DAY SOLD: 02/22/2021 [facility] lamotrigine 150 MG Oral Tablet lamotrigine 02/22/2021 12:00:00 AM EDT 150 mg by mouth completed <td ID="Medica tionRxNorm_3">755245</td><td ID="MedicationMedication_3">lamotrigine</td><td ID="MedicationRoute_3">by mouth</td><td ID="MedicationRouteConcept_3">W72382</td><td ID="MedicationStartDate_3">02/22/2021</td><td ID="MedicationStopDate_3"></td><td ID="MedicationDosageFrequency_3">once a day</td><td ID="MedicationDuration_3"></td><td ID="MedicationFormulaStrength_3">150 mg</td><td ID="MedicationDosageForm_3">tablet</td><td ID="MedicationDosageFormCode_3"></td><td ID="MedicationDosageDescription_3"></td><td ID="MedicationMedicationId_3">78407</td><td ID="MedicationAccount_3">[id number]</td><td ID="MedicationNpid_3">[id number]</td><td ID="MedicationAuthorFirstName_3">Adrienne</td><td ID="MedicationAuthorLastName_3">Ricky</td><td ID="MedicationTaxonomyCode_3">[id number]</td><td ID="MedicationTaxonomyDesc_3">Psychiatric/Mental Health</td><td ID="MedicationPhoneNumber_3">[phone]</td> [facility] ([facility]) 25 mcg 02/22/2021 12:00:00 AM EDT tablet [...] 150 mg by mouth completed <td ID="Medica tionRxNorm_5">097583</td><td ID="MedicationMedication_5">lamotrigine</td><td ID="MedicationRoute_5">by mouth</td><td ID="MedicationRouteConcept_5">L34538</td><td ID="MedicationStartDate_5">02/22/2021</td><td ID="MedicationStopDate_5">08/06/2021</td><td ID="MedicationDosageFrequency_5">once a day</td><td ID="MedicationDuration_5">30</td><td ID="MedicationFormulaStrength_5">150 mg</td><td ID="MedicationDosageForm_5">tablet</td><td ID="MedicationDosageFormCode_5"></td><td ID="MedicationDosageDescription_5"></td><td ID="MedicationMedicationId_5">25434</td><td ID="MedicationAccount_5">[id number]</td><td ID="MedicationNpid_5">[id number]</td><td ID="MedicationAuthorFirstName_5">Susanne</td><td ID="MedicationAuthorLastName_5">Irvin</td><td ID="MedicationTaxonomyCode_5">[id number]</td><td ID="MedicationTaxonomyDesc_5">Nurse Practitioner</td><td ID="MedicationPhoneNumber_5">[phone]</td> [facility] ([facility]) Clonazepam 0.5 MG Oral Tablet clonazepam 02/22/2021 12:00:00 AM EDT 0.5 mg by mouth completed <td ID="Medica tionRxNorm_2">739008</td><td ID="MedicationMedication_2">clonazepam</td><td ID="MedicationRoute_2">by mouth</td><td ID="MedicationRouteConcept_2">K54544</td><td ID="MedicationStartDate_2">02/22/2021</td><td ID="MedicationStopDate_2"></td><td ID="MedicationDosageFrequency_2"></td><td ID="MedicationDuration_2"></td><td ID="MedicationFormulaStrength_2">0.5 mg</td><td ID="MedicationDosageForm_2">tablet</td><td ID="MedicationDosageFormCode_2"></td><td ID="MedicationDosageDescription_2">as needed</td><td ID="MedicationMedicationId_2">89708</td><td ID="MedicationAccount_2">[id number]</td><td ID="MedicationNpid_2">[id number]</td><td ID="MedicationAuthorFirstName_2">Adrienne</td><td ID="MedicationAuthorLastName_2">[place]</td><td ID="MedicationTaxonomyCode_2">[id number]</td><td ID="MedicationTaxonomyDesc_2">Psychiatric/Mental Health</td><td ID="MedicationPhoneNumber_2">[phone]</td> [facility] ([facility]) 25 mcg 02/22/2021 12:00:00 AM EDT tablet [...] 0.5 mg by mouth completed <td ID="Medica tionRxNorm_6">478218</td><td ID="MedicationMedication_6">clonazepam</td><td ID="MedicationRoute_6">by mouth</td><td ID="MedicationRouteConcept_6">Z19891</td><td ID="MedicationStartDate_6">12/11/2020</td><td ID="MedicationStopDate_6"></td><td ID="MedicationDosageFrequency_6"></td><td ID="MedicationDuration_6"></td><td ID="MedicationFormulaStrength_6">0.5 mg</td><td ID="MedicationDosageForm_6">tablet</td><td ID="MedicationDosageFormCode_6"></td><td ID="MedicationDosageDescription_6">as needed</td><td ID="MedicationMedicationId_6">59124</td><td ID="MedicationAccount_6">[id number]</td><td ID="MedicationNpid_6">[id number]</td><td ID="MedicationAuthorFirstName_6">Russell</td><td ID="MedicationAuthorLastName_6">[place]</td><td ID="MedicationTaxonomyCode_6">[id number]</td><td ID="MedicationTaxonomyDesc_6">Nurse Practitioner</td><td ID="MedicationPhoneNumber_6">[phone]</td> [facility] ([facility]) Propranolol Hydrochloride 40 MG Oral Tablet propranolol 12/11/2020 12:00:00 AM EST 40 mg by mouth completed <td ID="MedicationRxNorm_5">450112</td><td ID="MedicationMedication_5">propranolol</td><td ID="MedicationRoute_5">by mouth</td><td ID="MedicationRouteConcept_5">B65393</td><td ID="MedicationStartDate_5">12/11/2020</td><td ID="MedicationStopDate_5"></td><td ID="MedicationDosageFrequency_5">twice a day</td><td ID="MedicationDuration_5"></td><td ID="MedicationFormulaStrength_5">40 mg</td><td ID="MedicationDosageForm_5">tablet</td><td ID="MedicationDosageFormCode_5"></td><td ID="MedicationDosageDescription_5"></td><td ID="MedicationMedicationId_5">27727</td><td ID="MedicationAccount_5">[id number]</td><td ID="MedicationNpid_5">[id number]</td><td ID="MedicationAuthorFirstName_5">Adrienne</td><td ID="MedicationAuthorLastName_5">Ricky</td><td ID="MedicationTaxonomyCode_5">[id number]</td><td ID="MedicationTaxonomyDesc_5">Psychiatric/Mental Health</td><td ID="MedicationPhoneNumber_5">[phone]</td> [facility] ([facility]) Propranolol Hydrochloride 40 MG Oral Tablet propranolol 12/11/2020 12:00:00 AM EST 40 mg completed <td ID ="MedicationRxNorm_8">058253</td><td ID="MedicationMedication_8">propranolol</td><td ID="MedicationRoute_8"></td><td ID="MedicationRouteConcept_8"></td><td ID="MedicationStartDate_8">12/11/2020</td><td ID="MedicationStopDate_8">12/11/2020</td><td ID="MedicationDosageFrequency_8"></td><td ID="MedicationDuration_8"></td><td ID="MedicationFormulaStrength_8">40 mg</td><td ID="MedicationDosageForm_8">tablet</td><td ID="MedicationDosageFormCode_8"></td><td ID="MedicationDosageDescription_8"></td><td ID="MedicationMedicationId_8">20627</td><td ID="MedicationAccount_8">[id number]</td><td ID="MedicationNpid_8"></td><td ID="MedicationAuthorFirstName_8"></td><td ID="MedicationAuthorLastName_8"></td><td ID="MedicationTaxonomyCode_8"></td><td ID="MedicationTaxonomyDesc_8"></td><td ID="MedicationPhoneNumber_8"></td> [facility] ([facility]) Propranolol Hydrochloride 40 MG Oral Tablet propranolol 12/11/2020 12:00:00 AM EST 40 mg by mouth completed <td ID="MedicationRxNorm_3">020915</td><td ID="MedicationMedication_3">propranolol</td><td ID="MedicationRoute_3">by mouth</td><td ID="MedicationRouteConcept_3">A89566</td><td ID="MedicationStartDate_3">12/11/2020</td><td ID="MedicationStopDate_3"></td><td ID="MedicationDosageFrequency_3">twice a day</td><td ID="MedicationDuration_3"></td><td ID="MedicationFormulaStrength_3">40 mg</td><td ID="MedicationDosageForm_3">tablet</td><td ID="MedicationDosageFormCode_3"></td><td ID="MedicationDosageDescription_3"></td><td ID="MedicationMedicationId_3">80630</td><td ID="MedicationAccount_3">[id number]</td><td ID="MedicationNpid_3">[id number]</td><td ID="MedicationAuthorFirstName_3">Adrienne</td><td ID="MedicationAuthorLastName_3">Ricky</td><td ID="MedicationTaxonomyCode_3">[id number]</td><td ID="MedicationTaxonomyDesc_3">Psychiatric/Mental Health</td><td ID="MedicationPhoneNumber_3">[phone]</td> [facility] ([facility]) Propranolol Hydrochloride 40 MG Oral Tablet propranolol 12/11/2020 12:00:00 AM EST 40 mg by mouth completed <td ID="MedicationRxNorm_2">300037</td><td ID="MedicationMedication_2">propranolol</td><td ID="MedicationRoute_2">by mouth</td><td ID="MedicationRouteConcept_2">L44099</td><td ID="MedicationStartDate_2">12/11/2020</td><td ID="MedicationStopDate_2"></td><td ID="MedicationDosageFrequency_2">twice a day</td><td ID="MedicationDuration_2"></td><td ID="MedicationFormulaStrength_2">40 mg</td><td ID="MedicationDosageForm_2">tablet</td><td ID="MedicationDosageFormCode_2"></td><td ID="MedicationDosageDescription_2"></td><td ID="MedicationMedicationId_2">59468</td><td ID="MedicationAccount_2">[id number]</td><td ID="MedicationNpid_2">[id number]</td><td ID="MedicationAuthorFirstName_2">Adrienne</td><td ID="MedicationAuthorLastName_2">Ricky</td><td ID="MedicationTaxonomyCode_2">[id number]</td><td ID="MedicationTaxonomyDesc_2">Psychiatric/Mental Health</td><td ID="MedicationPhoneNumber_2">[phone]</td> [facility] ([facility]) ziprasidone 80 MG Oral Capsule ZIPRASIDONE HCL 12/11/2020 12:00: 00 AM EST capsule 60 TAKE ONE CAPSULE BY MOUTH TWICE A DAY TAKE ONE CAPSULE BY MOUTH TWICE A DAY SOLD: 01/16/2021 [facility] Propranolol Hydrochloride 40 MG Oral Tablet propranolol 12/11/2020 12:00:00 AM EST 40 mg by mouth completed <td ID="MedicationRxNorm_1">185677</td><td ID="MedicationMedication_1">propranolol</td><td ID="MedicationRoute_1">by mouth</td><td ID="MedicationRouteConcept_1">R90420</td><td ID="MedicationStartDate_1">12/11/2020</td><td ID="MedicationStopDate_1"></td><td ID="MedicationDosageFrequency_1">twice a day</td><td ID="MedicationDuration_1"></td><td ID="MedicationFormulaStrength_1">40 mg</td><td ID="MedicationDosageForm_1">tablet</td><td ID="MedicationDosageFormCode_1"></td><td ID="MedicationDosageDescription_1"></td><td ID="MedicationMedicationId_1">97210</td><td ID="MedicationAccount_1">[id number]</td><td ID="MedicationNpid_1">[id number]</td><td ID="MedicationAuthorFirstName_1">Adrienne</td><td ID="MedicationAuthorLastName_1">Ricky</td><td ID="MedicationTaxonomyCode_1">[id number]</td><td ID="MedicationTaxonomyDesc_1">Psychiatric/Mental Health</td><td ID="MedicationPhoneNumber_1">[phone]</td> [facility] ([facility]) 1 mg 12/11/2020 12:00:00 AM EST [...] 0.5 mg by mouth completed <td ID="Medica tionRxNorm_5">876805</td><td ID="MedicationMedication_5">clonazepam</td><td ID="MedicationRoute_5">by mouth</td><td ID="MedicationRouteConcept_5">G87821</td><td ID="MedicationStartDate_5">12/11/2020</td><td ID="MedicationStopDate_5"></td><td ID="MedicationDosageFrequency_5"></td><td ID="MedicationDuration_5"></td><td ID="MedicationFormulaStrength_5">0.5 mg</td><td ID="MedicationDosageForm_5">tablet</td><td ID="MedicationDosageFormCode_5"></td><td ID="MedicationDosageDescription_5">as needed</td><td ID="MedicationMedicationId_5">61320</td><td ID="MedicationAccount_5">[id number]</td><td ID="MedicationNpid_5">[id number]</td><td ID="MedicationAuthorFirstName_5">Russell</td><td ID="MedicationAuthorLastName_5">[place]</td><td ID="MedicationTaxonomyCode_5">[id number]</td><td ID="MedicationTaxonomyDesc_5">Nurse Practitioner</td><td ID="MedicationPhoneNumber_5">[phone]</td> [facility] ([facility]) 40 mg 12/04/2020 12:00:00 AM EST [...] 11/15/2020 12:00:00 AM EST [facility] ([facility]) 800 mg 11/11/2020 12:00:00 AM EST tablet [...] EST 80 mg by mouth completed <td ID="Ut dicationRxNorm_1">348334</td><td ID="MedicationMedication_1">ziprasidone HCl</td><td ID="MedicationRoute_1">by mouth</td><td ID="MedicationRouteConcept_1">C40553</td><td ID="MedicationStartDate_1">10/25/2020</td><td ID="MedicationStopDate_1"></td><td ID="MedicationDosageFrequency_1">twice a day</td><td ID="MedicationDuration_1"></td><td ID="MedicationFormulaStrength_1">80 mg</td><td ID="MedicationDosageForm_1">capsule</td><td ID="MedicationDosageFormCode_1"></td><td ID="MedicationDosageDescription_1"></td><td ID="MedicationMedicationId_1">24530</td><td ID="MedicationAccount_1">[id number]</td><td ID="MedicationNpid_1">[id number]</td><td ID="MedicationAuthorFirstName_1">Adrienne</td><td ID="MedicationAuthorLastName_1">Ricky</td><td ID="MedicationTaxonomyCode_1">[id number]</td><td ID="MedicationTaxonomyDesc_1">Psychiatric/Mental Health</td><td ID="MedicationPhoneNumber_1">[phone]</td> [facility] ([facility]) ziprasidone 80 MG Oral Capsule ziprasidone HCl 10/25/2020 12:00:00 AM EST 80 mg by mouth completed <td ID="Me dicationRxNorm_3">541789</td><td ID="MedicationMedication_3">ziprasidone HCl</td><td ID="MedicationRoute_3">by mouth</td><td ID="MedicationRouteConcept_3">O26882</td><td ID="MedicationStartDate_3">10/25/2020</td><td ID="MedicationStopDate_3"></td><td ID="MedicationDosageFrequency_3">twice a day</td><td ID="MedicationDuration_3"></td><td ID="MedicationFormulaStrength_3">80 mg</td><td ID="MedicationDosageForm_3">capsule</td><td ID="MedicationDosageFormCode_3"></td><td ID="MedicationDosageDescription_3"></td><td ID="MedicationMedicationId_3">75043</td><td ID="MedicationAccount_3">[id number]</td><td ID="MedicationNpid_3">[id number]</td><td ID="MedicationAuthorFirstName_3">Russell</td><td ID="MedicationAuthorLastName_3">[place]</td><td ID="MedicationTaxonomyCode_3">[id number]</td><td ID="MedicationTaxonomyDesc_3">Nurse Practitioner</td><td ID="MedicationPhoneNumber_3">[phone]</td> [facility] ([facility]) ziprasidone 80 MG Oral Capsule ziprasidone HCl 10/25/2020 12:00:00 AM EST 80 mg by mouth completed <td ID="Me dicationRxNorm_7">813566</td><td ID="MedicationMedication_7">ziprasidone HCl</td><td ID="MedicationRoute_7">by mouth</td><td ID="MedicationRouteConcept_7">D66740</td><td ID="MedicationStartDate_7">10/25/2020</td><td ID="MedicationStopDate_7"></td><td ID="MedicationDosageFrequency_7">twice a day</td><td ID="MedicationDuration_7"></td><td ID="MedicationFormulaStrength_7">80 mg</td><td ID="MedicationDosageForm_7">capsule</td><td ID="MedicationDosageFormCode_7"></td><td ID="MedicationDosageDescription_7"></td><td ID="MedicationMedicationId_7">49128</td><td ID="MedicationAccount_7">[id number]</td><td ID="MedicationNpid_7">[id number]</td><td ID="MedicationAuthorFirstName_7">Russell</td><td ID="MedicationAuthorLastName_7">[place]</td><td ID="MedicationTaxonomyCode_7">[id number]</td><td ID="MedicationTaxonomyDesc_7">Nurse Practitioner</td><td ID="MedicationPhoneNumber_7">[phone]</td> [facility] ([facility]) ziprasidone 80 MG Oral Capsule ziprasidone HCl 10/25/2020 12:00:00 AM EST 80 mg by mouth completed <td ID="Me dicationRxNorm_4">456476</td><td ID="MedicationMedication_4">ziprasidone HCl</td><td ID="MedicationRoute_4">by mouth</td><td ID="MedicationRouteConcept_4">U74194</td><td ID="MedicationStartDate_4">10/25/2020</td><td ID="MedicationStopDate_4">08/06/2021</td><td ID="MedicationDosageFrequency_4">twice a day</td><td ID="MedicationDuration_4">30</td><td ID="MedicationFormulaStrength_4">80 mg</td><td ID="MedicationDosageForm_4">capsule</td><td ID="MedicationDosageFormCode_4"></td><td ID="MedicationDosageDescription_4"></td><td ID="MedicationMedicationId_4">58562</td><td ID="MedicationAccount_4">[id number]</td><td ID="MedicationNpid_4">[id number]</td><td ID="MedicationAuthorFirstName_4">Susanne</td><td ID="MedicationAuthorLastName_4">Irvin</td><td ID="MedicationTaxonomyCode_4">[id number]</td><td ID="MedicationTaxonomyDesc_4">Nurse Practitioner</td><td ID="MedicationPhoneNumber_4">[phone]</td> [facility] ([facility]) ziprasidone 80 MG Oral Capsule ziprasidone HCl 10/25/2020 12:00:00 AM EST 80 mg by mouth completed <td ID="Me dicationRxNorm_2">967466</td><td ID="MedicationMedication_2">ziprasidone HCl</td><td ID="MedicationRoute_2">by mouth</td><td ID="MedicationRouteConcept_2">H91860</td><td ID="MedicationStartDate_2">10/25/2020</td><td ID="MedicationStopDate_2"></td><td ID="MedicationDosageFrequency_2">twice a day</td><td ID="MedicationDuration_2"></td><td ID="MedicationFormulaStrength_2">80 mg</td><td ID="MedicationDosageForm_2">capsule</td><td ID="MedicationDosageFormCode_2"></td><td ID="MedicationDosageDescription_2"></td><td ID="MedicationMedicationId_2">56332</td><td ID="MedicationAccount_2">[id number]</td><td ID="MedicationNpid_2">[id number]</td><td ID="MedicationAuthorFirstName_2">Adrienne</td><td ID="MedicationAuthorLastName_2">Ricky</td><td ID="MedicationTaxonomyCode_2">[id number]</td><td ID="MedicationTaxonomyDesc_2">Psychiatric/Mental Health</td><td ID="MedicationPhoneNumber_2">[phone]</td> [facility] ([facility]) 20 mg 10/25/2020 12:00:00 AM EST [...] 80 mg by mouth completed <td ID="Me dicationRxNorm_6">099874</td><td ID="MedicationMedication_6">ziprasidone HCl</td><td ID="MedicationRoute_6">by mouth</td><td ID="MedicationRouteConcept_6">P16582</td><td ID="MedicationStartDate_6">10/25/2020</td><td ID="MedicationStopDate_6">08/06/2021</td><td ID="MedicationDosageFrequency_6">twice a day</td><td ID="MedicationDuration_6">30</td><td ID="MedicationFormulaStrength_6">80 mg</td><td ID="MedicationDosageForm_6">capsule</td><td ID="MedicationDosageFormCode_6"></td><td ID="MedicationDosageDescription_6"></td><td ID="MedicationMedicationId_6">01710</td><td ID="MedicationAccount_6">[id number]</td><td ID="MedicationNpid_6">[id number]</td><td ID="MedicationAuthorFirstName_6">Susanne</td><td ID="MedicationAuthorLastName_6">Irvin</td><td ID="MedicationTaxonomyCode_6">[id number]</td><td ID="MedicationTaxonomyDesc_6">Nurse Practitioner</td><td ID="MedicationPhoneNumber_6">[phone]</td> [facility] ([facility]) 20 mg 10/25/2020 12:00:00 AM EST [...] 12:00:00 AM EST ORAL [facility] ([facility]) 0.5 mg 2020 12:00:00 [...] BY MOUTH TWICE A DAY SOLD: 10/13/2020 [facility] buspirone hydrochloride 15 MG Oral Tablet [...] 1 mg by mouth completed <td ID="Medicat ionRxNorm_3">[id number]</td><td ID="MedicationMedication_3">prazosin</td><td ID="MedicationRoute_3">by mouth</td><td ID="MedicationRouteConcept_3">[id number]</td><td ID="MedicationStartDate_3">08/24/2020</td><td ID="MedicationStopDate_3"></td><td ID="MedicationDosageFrequency_3">at bedtime</td><td ID="MedicationDuration_3"></td><td ID="MedicationFormulaStrength_3">1 mg</td><td ID="MedicationDosageForm_3">capsule</td><td ID="MedicationDosageFormCode_3"></td><td ID="MedicationDosageDescription_3"></td><td ID="MedicationMedicationId_3">[id number]</td><td ID="MedicationAccount_3">[id number]</td><td ID="MedicationNpid_3">[id number]</td><td ID="MedicationAuthorFirstName_3">Adrienne</td><td ID="MedicationAuthorLastName_3">[place]</td><td ID="MedicationTaxonomyCode_3">[id number]</td><td ID="MedicationTaxonomyDesc_3">Psychiatric/Mental Health</td><td ID="MedicationPhoneNumber_3">[phone]</td> [facility] ([facility]) 1 mg 08/24/2020 12:00:00 AM EST capsule [...] 1 mg by mouth completed <td ID="Medicat ionRxNorm_2">875058</td><td ID="MedicationMedication_2">prazosin</td><td ID="MedicationRoute_2">by mouth</td><td ID="MedicationRouteConcept_2">X87317</td><td ID="MedicationStartDate_2">08/24/2020</td><td ID="MedicationStopDate_2"></td><td ID="MedicationDosageFrequency_2">at bedtime</td><td ID="MedicationDuration_2"></td><td ID="MedicationFormulaStrength_2">1 mg</td><td ID="MedicationDosageForm_2">capsule</td><td ID="MedicationDosageFormCode_2"></td><td ID="MedicationDosageDescription_2"></td><td ID="MedicationMedicationId_2">[id number]</td><td ID="MedicationAccount_2">[id number]</td><td ID="MedicationNpid_2">[id number]</td><td ID="MedicationAuthorFirstName_2">Adrienne</td><td ID="MedicationAuthorLastName_2">Ricky</td><td ID="MedicationTaxonomyCode_2">[id number]</td><td ID="MedicationTaxonomyDesc_2">Psychiatric/Mental Health</td><td ID="MedicationPhoneNumber_2">[phone]</td> [facility] ([facility]) Clonazepam 0.5 MG Oral Tablet clonazepam 08/24/2020 12:00:00 AM EST 0.5 mg by mouth completed <td ID="Medica tionRxNorm_2">651401</td><td ID="MedicationMedication_2">clonazepam</td><td ID="MedicationRoute_2">by mouth</td><td ID="MedicationRouteConcept_2">J70394</td><td ID="MedicationStartDate_2">08/24/2020</td><td ID="MedicationStopDate_2"></td><td ID="MedicationDosageFrequency_2">once a day</td><td ID="MedicationDuration_2"></td><td ID="MedicationFormulaStrength_2">0.5 mg</td><td ID="MedicationDosageForm_2">tablet</td><td ID="MedicationDosageFormCode_2"></td><td ID="MedicationDosageDescription_2"></td><td ID="MedicationMedicationId_2">60714</td><td ID="MedicationAccount_2">[id number]</td><td ID="MedicationNpid_2">[id number]</td><td ID="MedicationAuthorFirstName_2">Susanne</td><td ID="MedicationAuthorLastName_2">Irvin</td><td ID="MedicationTaxonomyCode_2">[id number]</td><td ID="MedicationTaxonomyDesc_2">Nurse Practitioner</td><td ID="MedicationPhoneNumber_2">[phone]</td> [facility] ([facility]) Clonazepam 0.5 MG Oral Tablet clonazepam 08/24/2020 12:00:00 AM EST 0.5 mg by mouth completed <td ID="Medica tionRxNorm_7">283561</td><td ID="MedicationMedication_7">clonazepam</td><td ID="MedicationRoute_7">by mouth</td><td ID="MedicationRouteConcept_7">G99243</td><td ID="MedicationStartDate_7">08/24/2020</td><td ID="MedicationStopDate_7">12/11/2020</td><td ID="MedicationDosageFrequency_7">once a day</td><td ID="MedicationDuration_7"></td><td ID="MedicationFormulaStrength_7">0.5 mg</td><td ID="MedicationDosageForm_7">tablet</td><td ID="MedicationDosageFormCode_7"></td><td ID="MedicationDosageDescription_7"></td><td ID="MedicationMedicationId_7">[id number]</td><td ID="MedicationAccount_7">[id number]</td><td ID="MedicationNpid_7">[id number]</td><td ID="MedicationAuthorFirstName_7">Susanne</td><td ID="MedicationAuthorLastName_7">Irvin</td><td ID="MedicationTaxonomyCode_7">[id number]</td><td ID="MedicationTaxonomyDesc_7">Nurse Practitioner</td><td ID="MedicationPhoneNumber_7">[phone]</td> [facility] ([facility]) Prazosin 1 MG Oral Capsule prazosin 08/24/2020 12:00:00 AM EST 1 mg by mouth completed <td ID="Medicat ionRxNorm_4">246378</td><td ID="MedicationMedication_4">prazosin</td><td ID="MedicationRoute_4">by mouth</td><td ID="MedicationRouteConcept_4">I01760</td><td ID="MedicationStartDate_4">08/24/2020</td><td ID="MedicationStopDate_4"></td><td ID="MedicationDosageFrequency_4">at bedtime</td><td ID="MedicationDuration_4"></td><td ID="MedicationFormulaStrength_4">1 mg</td><td ID="MedicationDosageForm_4">capsule</td><td ID="MedicationDosageFormCode_4"></td><td ID="MedicationDosageDescription_4"></td><td ID="MedicationMedicationId_4">[id number]</td><td ID="MedicationAccount_4">[id number]</td><td ID="MedicationNpid_4">[id number]</td><td ID="MedicationAuthorFirstName_4">Adrienne</td><td ID="MedicationAuthorLastName_4">[place]</td><td ID="MedicationTaxonomyCode_4">[id number]</td><td ID="MedicationTaxonomyDesc_4">Psychiatric/Mental Health</td><td ID="MedicationPhoneNumber_4">[phone]</td> [facility] ([facility]) 100 mg 08/24/2020 12:00:00 AM EST tablet 30 TAKE ONE TABLET BY MOUTH EVERY DAY TAKE ONE TABLET BY MOUTH EVERY DAY SOLD: 08/24/2020 [facility] Clonazepam 0.5 MG Oral Tablet clonazepam 08/24/2020 12:00:00 AM EST 0.5 mg by mouth completed <td ID="Medica tionRxNorm_3">229407</td><td ID="MedicationMedication_3">clonazepam</td><td ID="MedicationRoute_3">by mouth</td><td ID="MedicationRouteConcept_3">W55993</td><td ID="MedicationStartDate_3">08/24/2020</td><td ID="MedicationStopDate_3"></td><td ID="MedicationDosageFrequency_3">once a day</td><td ID="MedicationDuration_3"></td><td ID="MedicationFormulaStrength_3">0.5 mg</td><td ID="MedicationDosageForm_3">tablet</td><td ID="MedicationDosageFormCode_3"></td><td ID="MedicationDosageDescription_3"></td><td ID="MedicationMedicationId_3">87260</td><td ID="MedicationAccount_3">[id number]</td><td ID="MedicationNpid_3">[id number]</td><td ID="MedicationAuthorFirstName_3">Adrienne</td><td ID="MedicationAuthorLastName_3">[place]</td><td ID="MedicationTaxonomyCode_3">[id number]</td><td ID="MedicationTaxonomyDesc_3">Psychiatric/Mental Health</td><td ID="MedicationPhoneNumber_3">[phone]</td> [facility] ([facility]) Jc Greene 08/18/2020 12:00:00 AM EST ORAL com pleted [facility] ([facility] ) 5 mg 08/18/2020 12:00:00 [...] 12:00:00 AM EST ORAL completed [facility] ([facility] ) 40 mg 08/17/2020 12:00:00 [...] 0.5 mg by mouth completed <td ID="Medica tionRxNorm_5">814436</td><td ID="MedicationMedication_5">clonazepam</td><td ID="MedicationRoute_5">by mouth</td><td ID="MedicationRouteConcept_5">Q76315</td><td ID="MedicationStartDate_5">08/14/2020</td><td ID="MedicationStopDate_5">08/24/2020</td><td ID="MedicationDosageFrequency_5">once a day</td><td ID="MedicationDuration_5">10</td><td ID="MedicationFormulaStrength_5">0.5 mg</td><td ID="MedicationDosageForm_5">tablet</td><td ID="MedicationDosageFormCode_5"></td><td ID="MedicationDosageDescription_5">as directed</td><td ID="MedicationMedicationId_5">82453</td><td ID="MedicationAccount_5">[id number]</td><td ID="MedicationNpid_5">[id number]</td><td ID="MedicationAuthorFirstName_5">Adrienne</td><td ID="MedicationAuthorLastName_5">[place]</td><td ID="MedicationTaxonomyCode_5">[id number]</td><td ID="MedicationTaxonomyDesc_5">Psychiatric/Mental Health</td><td ID="MedicationPhoneNumber_5">[phone]</td> [facility] ([facility]) Clonazepam 0.5 MG Oral Tablet clonazepam 08/14/2020 12:00:00 AM EST 0.5 mg by mouth completed <td ID="Medica tionRxNorm_3">338784</td><td ID="MedicationMedication_3">clonazepam</td><td ID="MedicationRoute_3">by mouth</td><td ID="MedicationRouteConcept_3">J48259</td><td ID="MedicationStartDate_3">08/14/2020</td><td ID="MedicationStopDate_3">08/24/2020</td><td ID="MedicationDosageFrequency_3">once a day</td><td ID="MedicationDuration_3">10</td><td ID="MedicationFormulaStrength_3">0.5 mg</td><td ID="MedicationDosageForm_3">tablet</td><td ID="MedicationDosageFormCode_3"></td><td ID="MedicationDosageDescription_3">as directed</td><td ID="MedicationMedicationId_3">[id number]</td><td ID="MedicationAccount_3">[id number]</td><td ID="MedicationNpid_3">[id number]</td><td ID="MedicationAuthorFirstName_3">Adrienne</td><td ID="MedicationAuthorLastName_3">Ricky</td><td ID="MedicationTaxonomyCode_3">[id number]</td><td ID="MedicationTaxonomyDesc_3">Psychiatric/Mental Health</td><td ID="MedicationPhoneNumber_3">[phone]</td> [facility] ([facility]) lamotrigine 100 MG Oral Tablet [Lamictal] Lamictal 07/25/2020 1 2:00:00 AM EDT 100 mg by mouth completed <td ID="Me dicationRxNorm_9">642202</td><td ID="MedicationMedication_9">Lamictal</td><td ID="MedicationRoute_9">by mouth</td><td ID="MedicationRouteConcept_9">M02385</td><td ID="MedicationStartDate_9">07/25/2020</td><td ID="MedicationStopDate_9">02/18/2021</td><td ID="MedicationDosageFrequency_9">once a day</td><td ID="MedicationDuration_9">30</td><td ID="MedicationFormulaStrength_9">100 mg</td><td ID="MedicationDosageForm_9">tablet</td><td ID="MedicationDosageFormCode_9"></td><td ID="MedicationDosageDescription_9"></td><td ID="MedicationMedicationId_9">[id number]</td><td ID="MedicationAccount_9">[id number]</td><td ID="MedicationNpid_9">[id number]</td><td ID="MedicationAuthorFirstName_9">Susanne</td><td ID="MedicationAuthorLastName_9">Irvin</td><td ID="MedicationTaxonomyCode_9">[id number]</td><td ID="MedicationTaxonomyDesc_9">Nurse Practitioner</td><td ID="MedicationPhoneNumber_9">[phone]</td> [facility] ([facility]) lamotrigine 100 MG Oral Tablet [Lamictal] Lamictal 07/25/2020 1 2:00:00 AM EDT 100 mg by mouth completed <td ID="Me dicationRxNorm_8">530136</td><td ID="MedicationMedication_8">Lamictal</td><td ID="MedicationRoute_8">by mouth</td><td ID="MedicationRouteConcept_8">K30023</td><td ID="MedicationStartDate_8">07/25/2020</td><td ID="MedicationStopDate_8">11/22/2020</td><td ID="MedicationDosageFrequency_8">once a day</td><td ID="MedicationDuration_8">30</td><td ID="MedicationFormulaStrength_8">100 mg</td><td ID="MedicationDosageForm_8">tablet</td><td ID="MedicationDosageFormCode_8"></td><td ID="MedicationDosageDescription_8"></td><td ID="MedicationMedicationId_8">97776</td><td ID="MedicationAccount_8">[id number]</td><td ID="MedicationNpid_8">[id number]</td><td ID="MedicationAuthorFirstName_8">Adrienne</td><td ID="MedicationAuthorLastName_8">[place]</td><td ID="MedicationTaxonomyCode_8">[id number]</td><td ID="MedicationTaxonomyDesc_8">Psychiatric/Mental Health</td><td ID="MedicationPhoneNumber_8">[phone]</td> [facility] ([facility]) lamotrigine 100 MG Oral Tablet [Lamictal] Lamictal 07/25/2020 1 2:00:00 AM EDT 100 mg by mouth completed <td ID="Me dicationRxNorm_5">935412</td><td ID="MedicationMedication_5">Lamictal</td><td ID="MedicationRoute_5">by mouth</td><td ID="MedicationRouteConcept_5">Y54680</td><td ID="MedicationStartDate_5">07/25/2020</td><td ID="MedicationStopDate_5">11/22/2020</td><td ID="MedicationDosageFrequency_5">once a day</td><td ID="MedicationDuration_5">30</td><td ID="MedicationFormulaStrength_5">100 mg</td><td ID="MedicationDosageForm_5">tablet</td><td ID="MedicationDosageFormCode_5"></td><td ID="MedicationDosageDescription_5"></td><td ID="MedicationMedicationId_5">[id number]</td><td ID="MedicationAccount_5">[id number]</td><td ID="MedicationNpid_5">[id number]</td><td ID="MedicationAuthorFirstName_5">Adrienne</td><td ID="MedicationAuthorLastName_5">[place]</td><td ID="MedicationTaxonomyCode_5">[id number]</td><td ID="MedicationTaxonomyDesc_5">Psychiatric/Mental Health</td><td ID="MedicationPhoneNumber_5">[phone]</td> [facility] ([facility]) lamotrigine 100 MG Oral Tablet [Lamictal] Lamictal 07/25/2020 1 2:00:00 AM EDT 100 mg by mouth completed <td ID="Me dicationRxNorm_6">284118</td><td ID="MedicationMedication_6">Lamictal</td><td ID="MedicationRoute_6">by mouth</td><td ID="MedicationRouteConcept_6">J70017</td><td ID="MedicationStartDate_6">07/25/2020</td><td ID="MedicationStopDate_6">02/18/2021</td><td ID="MedicationDosageFrequency_6">once a day</td><td ID="MedicationDuration_6">30</td><td ID="MedicationFormulaStrength_6">100 mg</td><td ID="MedicationDosageForm_6">tablet</td><td ID="MedicationDosageFormCode_6"></td><td ID="MedicationDosageDescription_6"></td><td ID="MedicationMedicationId_6">89674</td><td ID="MedicationAccount_6">[id number]</td><td ID="MedicationNpid_6">[id number]</td><td ID="MedicationAuthorFirstName_6">Susanne</td><td ID="MedicationAuthorLastName_6">Irvin</td><td ID="MedicationTaxonomyCode_6">[id number]</td><td ID="MedicationTaxonomyDesc_6">Nurse Practitioner</td><td ID="MedicationPhoneNumber_6">[phone]</td> [facility] ([facility]) 100 mg 07/25/2020 12:00:00 AM EDT tablet 30 TAKE ONE TABLET BY MOUTH EVERY DAY TAKE ONE TABLET BY MOUTH EVERY DAY SOLD: 07/25/2020 [facility] lamotrigine 100 MG Oral Tablet [Lamictal] Lamictal 07/25/2020 1 2:00:00 AM EDT 100 mg by mouth completed <td ID="Me dicationRxNorm_4">074024</td><td ID="MedicationMedication_4">Lamictal</td><td ID="MedicationRoute_4">by mouth</td><td ID="MedicationRouteConcept_4">V84912</td><td ID="MedicationStartDate_4">07/25/2020</td><td ID="MedicationStopDate_4">02/18/2021</td><td ID="MedicationDosageFrequency_4">once a day</td><td ID="MedicationDuration_4">30</td><td ID="MedicationFormulaStrength_4">100 mg</td><td ID="MedicationDosageForm_4">tablet</td><td ID="MedicationDosageFormCode_4"></td><td ID="MedicationDosageDescription_4"></td><td ID="MedicationMedicationId_4">82932</td><td ID="MedicationAccount_4">[id number]</td><td ID="MedicationNpid_4">[id number]</td><td ID="MedicationAuthorFirstName_4">Susanne</td><td ID="MedicationAuthorLastName_4">Irvin</td><td ID="MedicationTaxonomyCode_4">[id number]</td><td ID="MedicationTaxonomyDesc_4">Nurse Practitioner</td><td ID="MedicationPhoneNumber_4">[phone]</td> [facility] ([facility]) lamotrigine 100 MG Oral Tablet [Lamictal] Lamictal 07/25/2020 1 2:00:00 AM EDT 100 mg by mouth completed <td ID="Me dicationRxNorm_7">342222</td><td ID="MedicationMedication_7">Lamictal</td><td ID="MedicationRoute_7">by mouth</td><td ID="MedicationRouteConcept_7">P22737</td><td ID="MedicationStartDate_7">07/25/2020</td><td ID="MedicationStopDate_7">02/18/2021</td><td ID="MedicationDosageFrequency_7">once a day</td><td ID="MedicationDuration_7">30</td><td ID="MedicationFormulaStrength_7">100 mg</td><td ID="MedicationDosageForm_7">tablet</td><td ID="MedicationDosageFormCode_7"></td><td ID="MedicationDosageDescription_7"></td><td ID="MedicationMedicationId_7">26527</td><td ID="MedicationAccount_7">[id number]</td><td ID="MedicationNpid_7">[id number]</td><td ID="MedicationAuthorFirstName_7">Susanne</td><td ID="MedicationAuthorLastName_7">Irvin</td><td ID="MedicationTaxonomyCode_7">[id number]</td><td ID="MedicationTaxonomyDesc_7">Nurse Practitioner</td><td ID="MedicationPhoneNumber_7">[phone]</td> [facility] ([facility]) 40 mg 07/19/2020 12:00:00 AM EDT tablet [...] AM EDT 25 mg completed <td ID="Me dicationRxNorm_3">868369</td><td ID="MedicationMedication_3">Lamictal</td><td ID="MedicationRoute_3"></td><td ID="MedicationRouteConcept_3"></td><td ID="MedicationStartDate_3">06/27/2020</td><td ID="MedicationStopDate_3"></td><td ID="MedicationDosageFrequency_3"></td><td ID="MedicationDuration_3"></td><td ID="MedicationFormulaStrength_3">25 mg</td><td ID="MedicationDosageForm_3">tablet</td><td ID="MedicationDosageFormCode_3"></td><td ID="MedicationDosageDescription_3"></td><td ID="MedicationMedicationId_3">[id number]</td><td ID="MedicationAccount_3">[id number]</td><td ID="MedicationNpid_3">[id number]</td><td ID="MedicationAuthorFirstName_3">Adrienne</td><td ID="MedicationAuthorLastName_3">Ricky</td><td ID="MedicationTaxonomyCode_3">[id number]</td><td ID="MedicationTaxonomyDesc_3">Psychiatric/Mental Health</td><td ID="MedicationPhoneNumber_3">[phone]</td> [facility] ([facility]) lamotrigine 25 MG Oral Tablet [Lamictal] Lamictal 06/27/2020 12 :00:00 AM EDT 25 mg completed <td ID="Me dicationRxNorm_4">537224</td><td ID="MedicationMedication_4">Lamictal</td><td ID="MedicationRoute_4"></td><td ID="MedicationRouteConcept_4"></td><td ID="MedicationStartDate_4">06/27/2020</td><td ID="MedicationStopDate_4"></td><td ID="MedicationDosageFrequency_4"></td><td ID="MedicationDuration_4"></td><td ID="MedicationFormulaStrength_4">25 mg</td><td ID="MedicationDosageForm_4">tablet</td><td ID="MedicationDosageFormCode_4"></td><td ID="MedicationDosageDescription_4"></td><td ID="MedicationMedicationId_4">82606</td><td ID="MedicationAccount_4">[id number]</td><td ID="MedicationNpid_4">[id number]</td><td ID="MedicationAuthorFirstName_4">Adrienne</td><td ID="MedicationAuthorLastName_4">Ricky</td><td ID="MedicationTaxonomyCode_4">[id number]</td><td ID="MedicationTaxonomyDesc_4">Psychiatric/Mental Health</td><td ID="MedicationPhoneNumber_4">[phone]</td> [facility] ([facility]) 25 mg 06/27/2020 12:00:00 AM EDT tablet [...] 80 mg by mouth completed <td ID="Me dicationRxNorm_5">983124</td><td ID="MedicationMedication_5">ziprasidone HCl</td><td ID="MedicationRoute_5">by mouth</td><td ID="MedicationRouteConcept_5">Z25827</td><td ID="MedicationStartDate_5">06/20/2020</td><td ID="MedicationStopDate_5">09/23/2020</td><td ID="MedicationDosageFrequency_5">twice a day</td><td ID="MedicationDuration_5">30</td><td ID="MedicationFormulaStrength_5">80 mg</td><td ID="MedicationDosageForm_5">capsule</td><td ID="MedicationDosageFormCode_5"></td><td ID="MedicationDosageDescription_5"></td><td ID="MedicationMedicationId_5">76221</td><td ID="MedicationAccount_5">[id number]</td><td ID="MedicationNpid_5">[id number]</td><td ID="MedicationAuthorFirstName_5">Adrienne</td><td ID="MedicationAuthorLastName_5">Ricky</td><td ID="MedicationTaxonomyCode_5">[id number]</td><td ID="MedicationTaxonomyDesc_5">Psychiatric/Mental Health</td><td ID="MedicationPhoneNumber_5">[phone]</td> [facility] ([facility]) 400 mg 06/20/2020 12:00:00 AM EDT capsule [...] 0.5 mg by mouth completed <td ID="Medica tionRxNorm_4">193990</td><td ID="MedicationMedication_4">clonazepam</td><td ID="MedicationRoute_4">by mouth</td><td ID="MedicationRouteConcept_4">F12462</td><td ID="MedicationStartDate_4">05/26/2020</td><td ID="MedicationStopDate_4">08/17/2020</td><td ID="MedicationDosageFrequency_4">once a day</td><td ID="MedicationDuration_4">30</td><td ID="MedicationFormulaStrength_4">0.5 mg</td><td ID="MedicationDosageForm_4">tablet</td><td ID="MedicationDosageFormCode_4"></td><td ID="MedicationDosageDescription_4">as directed</td><td ID="MedicationMedicationId_4">13424</td><td ID="MedicationAccount_4">[id number]</td><td ID="MedicationNpid_4">[id number]</td><td ID="MedicationAuthorFirstName_4">Susanne</td><td ID="MedicationAuthorLastName_4">Irvin</td><td ID="MedicationTaxonomyCode_4">[id number]</td><td ID="MedicationTaxonomyDesc_4">Nurse Practitioner</td><td ID="MedicationPhoneNumber_4">[phone]</td> [facility] ([facility]) 40 mg 05/24/2020 12:00:00 AM EDT tablet [...] AM EDT 15 mg completed <td ID="Medicat ionRxNorm_5">237363</td><td ID="MedicationMedication_5">mirtazapine</td><td ID="MedicationRoute_5"></td><td ID="MedicationRouteConcept_5"></td><td ID="MedicationStartDate_5">05/01/2020</td><td ID="MedicationStopDate_5">06/30/2020</td><td ID="MedicationDosageFrequency_5">at bedtime</td><td ID="MedicationDuration_5">30</td><td ID="MedicationFormulaStrength_5">15 mg</td><td ID="MedicationDosageForm_5">tablet</td><td ID="MedicationDosageFormCode_5"></td><td ID="MedicationDosageDescription_5"></td><td ID="MedicationMedicationId_5">65887</td><td ID="MedicationAccount_5">[id number]</td><td ID="MedicationNpid_5">[id number]</td><td ID="MedicationAuthorFirstName_5">Adrienne</td><td ID="MedicationAuthorLastName_5">Ricky</td><td ID="MedicationTaxonomyCode_5">[id number]</td><td ID="MedicationTaxonomyDesc_5">Psychiatric/Mental Health</td><td ID="MedicationPhoneNumber_5">[phone]</td> [facility] ([facility]) 25 mcg 04/21/2020 12:00:00 AM EDT [...] 400 mg by mouth completed <td ID="Medica tionRxNorm_7">381702</td><td ID="MedicationMedication_7">gabapentin</td><td ID="MedicationRoute_7">by mouth</td><td ID="MedicationRouteConcept_7">J84530</td><td ID="MedicationStartDate_7">03/13/2020</td><td ID="MedicationStopDate_7">07/04/2021</td><td ID="MedicationDosageFrequency_7">three times a day</td><td ID="MedicationDuration_7">30</td><td ID="MedicationFormulaStrength_7">400 mg</td><td ID="MedicationDosageForm_7">capsule</td><td ID="MedicationDosageFormCode_7"></td><td ID="MedicationDosageDescription_7"> </td><td ID="MedicationMedicationId_7">30102</td><td ID="MedicationAccount_7">[id number]</td><td ID="MedicationNpid_7">[id number]</td><td ID="MedicationAuthorFirstName_7">Susanne</td><td ID="MedicationAuthorLastName_7">Irvin</td><td ID="MedicationTaxonomyCode_7">[id number]</td><td ID="MedicationTaxonomyDesc_7">Nurse Practitioner</td><td ID="MedicationPhoneNumber_7">[phone]</td> [facility] ([facility]) gabapentin 400 MG Oral Capsule gabapentin 03/13/2020 12:00:00 AM EDT 400 mg by mouth completed <td ID="Medica tionRxNorm_3">112348</td><td ID="MedicationMedication_3">gabapentin</td><td ID="MedicationRoute_3">by mouth</td><td ID="MedicationRouteConcept_3">W30931</td><td ID="MedicationStartDate_3">03/13/2020</td><td ID="MedicationStopDate_3">07/04/2021</td><td ID="MedicationDosageFrequency_3">three times a day</td><td ID="MedicationDuration_3">30</td><td ID="MedicationFormulaStrength_3">400 mg</td><td ID="MedicationDosageForm_3">capsule</td><td ID="MedicationDosageFormCode_3"></td><td ID="MedicationDosageDescription_3"> </td><td ID="MedicationMedicationId_3">93272</td><td ID="MedicationAccount_3">[id number]</td><td ID="MedicationNpid_3">[id number]</td><td ID="MedicationAuthorFirstName_3">Susanne</td><td ID="MedicationAuthorLastName_3">Irvin</td><td ID="MedicationTaxonomyCode_3">[id number]</td><td ID="MedicationTaxonomyDesc_3">Nurse Practitioner</td><td ID="MedicationPhoneNumber_3">[phone]</td> [facility] ([facility]) 8.6 mg 02/22/2020 12:00:00 AM EDT tablet [...] EDT 40 mg by mouth completed <td ID="MedicationRxNorm_6">926651</td><td ID="MedicationMedication_6">propranolol</td><td ID="MedicationRoute_6">by mouth</td><td ID="MedicationRouteConcept_6">E80443</td><td ID="MedicationStartDate_6">02/03/2020</td><td ID="MedicationStopDate_6">10/23/2020</td><td ID="MedicationDosageFrequency_6">twice a day</td><td ID="MedicationDuration_6">30</td><td ID="MedicationFormulaStrength_6">40 mg</td><td ID="MedicationDosageForm_6">tablet</td><td ID="MedicationDosageFormCode_6"></td><td ID="MedicationDosageDescription_6"></td><td ID="MedicationMedicationId_6">89361</td><td ID="MedicationAccount_6">[id number]</td><td ID="MedicationNpid_6">[id number]</td><td ID="MedicationAuthorFirstName_6">Adrienne</td><td ID="MedicationAuthorLastName_6">Ricky</td><td ID="MedicationTaxonomyCode_6">[id number]</td><td ID="MedicationTaxonomyDesc_6">Psychiatric/Mental Health</td><td ID="MedicationPhoneNumber_6">[phone]</td> [facility] ([facility]) Propranolol Hydrochloride 40 MG Oral Tablet propranolol 02/03/2020 12:00:00 AM EDT 40 mg by mouth completed <td ID="MedicationRxNorm_7">[id number]</td><td ID="MedicationMedication_7">propranolol</td><td ID="MedicationRoute_7">by mouth</td><td ID="MedicationRouteConcept_7">[id number]</td><td ID="MedicationStartDate_7">02/03/2020</td><td ID="MedicationStopDate_7">10/23/2020</td><td ID="MedicationDosageFrequency_7">twice a day</td><td ID="MedicationDuration_7">30</td><td ID="MedicationFormulaStrength_7">40 mg</td><td ID="MedicationDosageForm_7">tablet</td><td ID="MedicationDosageFormCode_7"></td><td ID="MedicationDosageDescription_7"></td><td ID="MedicationMedicationId_7">[id number]</td><td ID="MedicationAccount_7">[id number]</td><td ID="MedicationNpid_7">[id number]</td><td ID="MedicationAuthorFirstName_7">Adrienne</td><td ID="MedicationAuthorLastName_7">Ricky</td><td ID="MedicationTaxonomyCode_7">[id number]</td><td ID="MedicationTaxonomyDesc_7">Psychiatric/Mental Health</td><td ID="MedicationPhoneNumber_7">[phone]</td> [facility] ([facility] 31 gauge x 5/16" 01/26/2020 12:00:00 AM [...] THREE TIMES A DAY SOLD: 06/23/2020 [facility] [employer] Ketoconazole 20 MG/ML Medicated Shampoo ketoconazole 2 % shampoo ketoconazole 2 % shampoo completed ketoconazole 20 MG/ML Medicated Shampoo [place] ([facility]) buspirone hydrochloride 10 MG Oral Tablet buspirone 10 mg tablet buspirone 10 mg tablet completed buspirone hydr ochloride 10 MG Oral Tablet [place] ([facility]) Ketoconazole 20 MG/ML Medicated Shampoo ketoconazole 2 % shampoo ketoconazole 2 % shampoo completed ketoconazole 20 MG/ML Medicated Shampoo [place] ([facility]) buspirone hydrochloride 10 MG Oral Tablet buspirone 10 mg tablet buspirone 10 mg tablet completed buspirone hydr ochloride 10 MG Oral Tablet [place] ([facility]) Clonidine Hydrochloride 0.2 MG Oral Tablet clonidine H Cl 0.2 mg tablet clonidine HCl 0.2 mg tablet completed clonidine hydrochloride 0.2 MG Oral Tablet [place] ([facility]) Propranolol Hydrochloride 20 MG Oral Tablet propranolo l 20 mg tablet propranolol 20 mg tablet completed propranolol hydrochloride 20 MG Oral Tablet [place] ([facility]) Isopropyl Alcohol 0.7 ML/ML Medicated Pad Alcohol Prep Pads Alco hol Prep Pads completed isopropyl alco hol 0.7 ML/ML Medicated Pad [place] ([facility]) Docusate Sodium 100 MG Oral Capsule [DOK] DOK 100 mg capsule DOK 100 mg capsule completed docusate sodiu m 100 MG Oral Capsule [DOK] [place] ([facility]) Triamcinolone Acetonide 1 MG/ML Topical Cream triamcinolone acetonide 0.1 % topical cream triamcinolone acetonide 0.1 % topical cream completed triamcinolone acetonide 1 MG/ML Topical Cream [place] ([facility]) 0.5 ML dulaglutide 1.5 MG/ML Auto-Inject or [Trulicity] Trulicity 0.75 mg/0.5 mL subcutaneous pen injector Trulicity 0.75 mg/0.5 mL subcutaneous pen injector completed 0.5 ML dulaglu tide 1.5 MG/ML Auto-Injector [Trulicity] [place] ([facility]) Famotidine 20 MG Oral Tablet famotidine 20 mg tablet famotidine 20 mg tablet completed famotidine 20 MG Oral Tablet [facility] ([facility]) Cephalexin 500 MG Oral Capsule cephalexin 500 mg capsu le cephalexin 500 mg capsule completed cephalexin 500 MG Oral Capsule [place] ([facility]) lamotrigine 100 MG Oral Tablet lamotrigi ne 100 mg tablet TAKE ONE TABLET BY MOUTH ONCE DAILY lamotrigine 100 mg tablet TAKE ONE TABLET BY MOUTH ONC E DAILY completed lamotrigine 10 0 MG Oral Tablet [place] ([facility]) Mirtazapine 15 MG Oral Tablet mirtazapine 15 mg tablet derrick zapine 15 mg tablet completed mirtazapine 15 MG Oral Tablet [place] ([facility]) Azithromycin 250 MG Oral Tablet azithromycin 250 mg ta blet azithromycin 250 mg tablet completed azithromycin 25 0 MG Oral Tablet [place] ([facility]) Famotidine 20 MG Oral Tablet famotidine 20 mg tablet famotidine 20 mg tablet completed famotidine 20 MG Oral Tablet [place] ([facility]) Docusate Sodium 100 MG Oral Capsule [DOK] DOK 100 mg capsule DOK 100 mg capsule completed docusate sodiu m 100 MG Oral Capsule [DOK] [place] ([facility]) Mirtazapine 15 MG Oral Tablet mirtazapine 15 mg tablet derrick zapine 15 mg tablet completed mirtazapine 15 MG Oral Tablet [place] ([facility]) OneTouch Verio Flex Meter [id number] compl eted OneTouch Verio Flex Meter [place] ([facility]) cefdinir 300 MG Oral Capsule cefdinir 300 mg capsule cefdinir 30 0 mg capsule completed cefdinir 300 M G Oral Capsule [place] ([facility]) Mirtazapine 45 MG Oral Tablet mirtazapine 45 mg tablet derrick zapine 45 mg tablet completed mirtazapine 45 MG Oral Tablet [place] ([facility]) Triamcinolone Acetonide 1 MG/ML Topical Cream triamcinolone acetonide 0.1 % topical cream triamcinolone acetonide 0.1 % topical cream completed triamcinolone acetonide 1 MG/ML Topical Cream [place] ([facility]) Azithromycin 250 MG Oral Tablet azithromycin 250 mg ta blet azithromycin 250 mg tablet completed azithromycin 25 0 MG Oral Tablet [facility]) Amitriptyline Hydrochloride 50 MG Oral Tablet amitript yline 50 mg tablet amitriptyline 50 mg tablet completed amitriptyline hydrochloride 50 MG Oral Tablet [facility] ([facility]) buspirone hydrochloride 15 MG Oral Table t buspirone 15 mg tablet TAKE ONE TABLET BY MOUTH THREE TIMES A DAY buspirone 15 mg tablet TAKE ONE TABLET B Y MOUTH THREE TIMES A DAY completed buspirone hydrochloride 15 MG Oral Tablet [facility] ([facility]) Propranolol Hydrochloride 20 MG Oral Tablet propranolo l 20 mg tablet propranolol 20 mg tablet completed propranolol hydrochloride 20 MG Oral Tablet [facility] ([facility]) 0.5 ML dulaglutide 1.5 MG/ML Auto-Inject or [Trulicity] Trulicity 0.75 mg/0.5 mL subcutaneous pen injector Trulicity 0.75 mg/0.5 mL subcutaneous pen injector completed 0.5 ML dulaglu tide 1.5 MG/ML Auto-Injector [Trulicity] [facility]) Clonazepam 0.5 MG Oral Tablet clonazepam 0.5 mg tablet TAKE ONE TABLET BY MOUTH NEEDED FOR 3 DAYS THEN ONE HALF TABLET UNTIL FINISHED MAXIMUM DAILY DOSE ONE TABLET clonazepam 0.5 mg tablet TAKE ONE TABLET BY MOUTH NEEDED FOR 3 DAYS THEN ONE HALF TABLET UNTIL FINISHED MAXIMUM DAILY DOSE ONE TABLET completed clonazepam 0.5 MG Or al Tablet [place] ([facility]) sennosides, [facility] 8.6 MG Oral Tablet [Senna-Time] senna 8.6 mg tablet senna 8.6 mg tablet completed sennosi azam, [facility] 8.6 MG Oral Tablet [Senna-Time] [place] ([facility]) 0.5 ML dulaglutide 1.5 MG/ML Auto-Inject or [Trulicity] Trulicity 0.75 mg/0.5 mL subcutaneous pen injector Trulicity 0.75 mg/0.5 mL subcutaneous pen injector completed 0.5 ML dulaglu tide 1.5 MG/ML Auto-Injector [Trulicity] [place] ([facility]) ziprasidone 60 MG Oral Capsule ziprasidone 60 mg capsu le ziprasidone 60 mg capsule completed ziprasidone 60 MG Oral Capsule [facility]) Mirtazapine 45 MG Oral Tablet mirtazapine 45 mg tablet derrick zapine 45 mg tablet completed mirtazapine 45 MG Oral Tablet [place] ([facility]) benzonatate 200 MG Oral Capsule benzonatate 200 mg cap [place] benzonatate 200 mg capsule completed benzonatate 20 0 MG Oral Capsule [place] ([facility]) Triamcinolone Acetonide 1 MG/ML Topical Cream triamcinolone acetonide 0.1 % topical cream triamcinolone acetonide 0.1 % topical cream completed triamcinolone acetonide 1 MG/ML Topical Cream [place] ([facility]) Ketoconazole 20 MG/ML Medicated Shampoo ketoconazole 2 % shampoo ketoconazole 2 % shampoo completed ketoconazole 20 MG/ML Medicated Shampoo [place] ([facility]) ziprasidone 60 MG Oral Capsule ziprasidone 60 mg capsu le ziprasidone 60 mg capsule completed ziprasidone 60 MG Oral Capsule [place] ([facility]) sennosides, [facility] 8.6 MG Oral Tablet [Senna-Time] senna 8.6 mg tablet senna 8.6 mg tablet completed sennosi azam, [facility] 8.6 MG Oral Tablet [Senna-Time] [place] ([facility]) buspirone hydrochloride 7.5 MG Oral Tablet buspirone 7 .5 mg tablet buspirone 7.5 mg tablet completed buspirone h ydrochloride 7.5 MG Oral Tablet [place] ([facility]) benztropine mesylate 0.5 MG Oral Tablet benztropine 0. 5 mg tablet benztropine 0.5 mg tablet completed benztrop ine mesylate 0.5 MG Oral Tablet [place] ([facility]) Prazosin 1 MG Oral Capsule prazosin 1 mg capsule prazosin 1 mg capsule completed prazosin 1 MG Oral Capsul e [place] ([facility]) BD Ultra-Fine Short Pen Needle 31 gauge x 5/16" USE DIRECTED ONCE DAILY [id number] completed BD Ultr a-Fine Short Pen Needle 31 gauge x 5/16" [place] ([facility]) Ketoconazole 20 MG/ML Medicated Shampoo ketoconazole 2 % shampoo ketoconazole 2 % shampoo completed ketoconazole 20 MG/ML Medicated Shampoo [facility] ([facility]) Mirtazapine 45 MG Oral Tablet mirtazapine 45 mg tablet derrick zapine 45 mg tablet completed mirtazapine 45 MG Oral Tablet [place] ([facility]) Azithromycin 250 MG Oral Tablet azithromycin 250 mg ta blet azithromycin 250 mg tablet completed azithromycin 25 0 MG Oral Tablet [place] ([facility]) lamotrigine 25 MG Oral Tablet lamotrigine 25 mg tablet lamot rigine 25 mg tablet completed lamotrigine 25 MG Oral Tablet [place] ([facility]) Isopropyl Alcohol 0.7 ML/ML Medicated Pad Alcohol Prep Pads Alco hol Prep Pads completed isopropyl alco hol 0.7 ML/ML Medicated Pad [place] ([facility]) Ergocalciferol [id number] UNT Oral Capsule Vi tamin D2 1,250 mcg (50,000 unit) capsule Vitamin D2 1,250 mcg (50,000 unit) capsule completed ergocalciferol 1.25 MG Oral Capsule [place] ([facility]) buspirone hydrochloride 7.5 MG Oral Tablet buspirone 7 .5 mg tablet buspirone 7.5 mg tablet completed buspirone h ydrochloride 7.5 MG Oral Tablet [place] ([facility]) Propranolol Hydrochloride 20 MG Oral Tablet propranolo l 20 mg tablet propranolol 20 mg tablet completed propranolol hydrochloride 20 MG Oral Tablet [place] ([facility]) cefdinir 300 MG Oral Capsule cefdinir 300 mg capsule cefdinir 30 0 mg capsule completed cefdinir 300 M G Oral Capsule [place] ([facility]) buspirone hydrochloride 7.5 MG Oral Tablet buspirone 7 .5 mg tablet buspirone 7.5 mg tablet completed buspirone h ydrochloride 7.5 MG Oral Tablet [place] ([facility]) Mirtazapine 15 MG Oral Tablet mirtazapine 15 mg tablet derrick zapine 15 mg tablet completed mirtazapine 15 MG Oral Tablet [place] ([facility]) Clonazepam 0.5 MG Disintegrating Oral Ta blet clonazepam 0.5 mg disintegrating tablet clonazepam 0.5 mg disintegrating tablet completed clonazepam 0.5 MG Disintegrating Oral Tablet [place] ([facility]) Clonidine Hydrochloride 0.2 MG Oral Tablet clonidine H Cl 0.2 mg tablet clonidine HCl 0.2 mg tablet completed clonidine hydrochloride 0.2 MG Oral Tablet [facility] ([facility]) Azithromycin 250 MG Oral Tablet azithromycin 250 mg ta blet azithromycin 250 mg tablet completed azithromycin 25 0 MG Oral Tablet [place] ([facility]) Docusate Sodium 100 MG Oral Capsule [DOK] DOK 100 mg capsule DOK 100 mg capsule completed docusate sodiu m 100 MG Oral Capsule [DOK] [facility] ([facility]) benzonatate 200 MG Oral Capsule benzonatate 200 mg cap [place] benzonatate 200 mg capsule completed benzonatate 20 0 MG Oral Capsule [place] ([facility]) 0.5 ML dulaglutide 1.5 MG/ML Auto-Inject or [Trulicity] Trulicity 0.75 mg/0.5 mL subcutaneous pen injector Trulicity 0.75 mg/0.5 mL subcutaneous pen injector completed 0.5 ML dulaglu tide 1.5 MG/ML Auto-Injector [Trulicity] [place] ([facility]) ziprasidone 60 MG Oral Capsule ziprasidone 60 mg capsu le ziprasidone 60 mg capsule completed ziprasidone 60 MG Oral Capsule [place] ([facility]) Amitriptyline Hydrochloride 50 MG Oral Tablet amitript yline 50 mg tablet amitriptyline 50 mg tablet completed amitriptyline hydrochloride 50 MG Oral Tablet [place] ([facility]) benztropine mesylate 0.5 MG Oral Tablet benztropine 0. 5 mg tablet benztropine 0.5 mg tablet completed benztrop ine mesylate 0.5 MG Oral Tablet [facility] ([facility]) benzonatate 200 MG Oral Capsule benzonatate 200 mg cap [place] benzonatate 200 mg capsule completed benzonatate 20 0 MG Oral Capsule [place] ([facility]) sennosides 8.6 mg-docusate sodium 50 mg capsule Take 2 capsules by oral route at bedtime. [id number] 2 capsule(s) completed docusate sodium 50 MG / sennosides, [facility] 8.6 MG Oral Capsule [place] ([facility]) buspirone hydrochloride 7.5 MG Oral Tablet buspirone 7 .5 mg tablet buspirone 7.5 mg tablet completed buspirone h ydrochloride 7.5 MG Oral Tablet [facility] ([facility]) Clonidine Hydrochloride 0.2 MG Oral Tablet clonidine H Cl 0.2 mg tablet clonidine HCl 0.2 mg tablet completed clonidine hydrochloride 0.2 MG Oral Tablet [facility] ([facility]) Azithromycin 250 MG Oral Tablet azithromycin 250 mg ta blet azithromycin 250 mg tablet completed azithromycin 25 0 MG Oral Tablet [facility] ([facility]) sennosides 8.6 mg-docusate sodium 50 mg capsule Take 2 capsules by oral route at bedtime. [id number] 2 capsule(s) completed docusate sodium 50 MG / sennosides, [facility] 8.6 MG Oral Capsule [facility] ([facility]) buspirone hydrochloride 10 MG Oral Tablet buspirone 10 mg tablet buspirone 10 mg tablet completed buspirone hydr ochloride 10 MG Oral Tablet [facility] ([facility]) Propranolol Hydrochloride 20 MG Oral Tablet propranolo l 20 mg tablet propranolol 20 mg tablet completed propranolol hydrochloride 20 MG Oral Tablet [facility] ([facility]) Amitriptyline Hydrochloride 50 MG Oral Tablet amitript yline 50 mg tablet amitriptyline 50 mg tablet completed amitriptyline hydrochloride 50 MG Oral Tablet [facility] ([facility]) cefdinir 300 MG Oral Capsule cefdinir 300 mg capsule cefdinir 30 0 mg capsule completed cefdinir 300 M G Oral Capsule [facility] ([facility]) benzonatate 200 MG Oral Capsule benzonatate 200 mg cap [place] benzonatate 200 mg capsule completed benzonatate 20 0 MG Oral Capsule [facility] ([facility]) Mirtazapine 15 MG Oral Tablet mirtazapine 15 mg tablet derrick zapine 15 mg tablet completed mirtazapine 15 MG Oral Tablet [facility] ([facility]) Famotidine 20 MG Oral Tablet famotidine 20 mg tablet famotidine 20 mg tablet completed famotidine 20 MG Oral Tablet [facility] ([facility]) benzonatate 200 MG Oral Capsule benzonatate 200 mg cap [place] benzonatate 200 mg capsule completed benzonatate 20 0 MG Oral Capsule [facility] ([facility]) sennosides 8.6 mg-docusate sodium 50 mg capsule Take 2 capsules by oral route at bedtime. [id number] 2 capsule(s) completed docusate sodium 50 MG / sennosides, [facility] 8.6 MG Oral Capsule [facility] ([facility]) Steglatro 5 mg tablet [id number] completed ertugliflozin 5 MG Oral Tablet [Steglatro] [place] ([facility]) Simvastatin 10 MG Oral Tablet simvastati n 10 mg tablet TAKE ONE TABLET BY MOUTH EVERY DAY simvastatin 10 mg tablet TAKE ONE TABLET BY MOUTH EVERY DAY completed simvastatin 10 MG Oral Table t [place] ([facility]) benztropine mesylate 0.5 MG Oral Tablet benztropine 0. 5 mg tablet benztropine 0.5 mg tablet completed benztrop ine mesylate 0.5 MG Oral Tablet [place] ([facility]) Docusate Sodium 100 MG Oral Capsule [DOK] DOK 100 mg capsule DOK 100 mg capsule completed docusate sodiu m 100 MG Oral Capsule [DOK] [place] ([facility]) 0.5 ML dulaglutide 1.5 MG/ML Auto-Inject or [Trulicity] Trulicity 0.75 mg/0.5 mL subcutaneous pen injector Trulicity 0.75 mg/0.5 mL subcutaneous pen injector completed 0.5 ML dulaglu tide 1.5 MG/ML Auto-Injector [Trulicity] [place] ([facility]) Docusate Sodium 50 MG / sennosides, [facility] 8.6 MG Oral Tablet sennosides 8.6 mg- docusate sodium 50 mg tablet Take 2 tablets by oral route at bedtime. sennosides 8.6 mg-docusate sodium 50 mg tablet Take 2 tablets by oral route at bedtime. 2 completed docusate sodiu m 50 MG / sennosides, [facility] 8.6 MG Oral Tablet [facility] ([facility]) Amitriptyline Hydrochloride 50 MG Oral Tablet amitript yline 50 mg tablet amitriptyline 50 mg tablet completed amitriptyline hydrochloride 50 MG Oral Tablet [place] ([facility]) sennosides 8.6 mg-docusate sodium 50 mg capsule Take 2 capsules by oral route at bedtime. [id number] 2 capsule(s) completed docusate sodium 50 MG / sennosides, [facility] 8.6 MG Oral Capsule [facility] ([facility]) Clindamycin 150 MG Oral Capsule clindamycin HCl 150 mg capsule clindamycin HCl 150 mg capsule completed clindam ycin 150 MG Oral Capsule [facility] ([facility]) 0.5 ML dulaglutide 1.5 MG/ML Auto-Inject or [Trulicity] Trulicity 0.75 mg/0.5 mL subcutaneous pen injector Trulicity 0.75 mg/0.5 mL subcutaneous pen injector completed 0.5 ML dulaglu tide 1.5 MG/ML Auto-Injector [Trulicity] [facility] ([facility]) buspirone hydrochloride 10 MG Oral Tablet buspirone 10 mg tablet buspirone 10 mg tablet completed buspirone hydr ochloride 10 MG Oral Tablet [place] ([facility]) Famotidine 20 MG Oral Tablet famotidine 20 mg tablet famotidine 20 mg tablet completed famotidine 20 MG Oral Tablet [facility] ([facility]) Clindamycin 150 MG Oral Capsule clindamycin HCl 150 mg capsule clindamycin HCl 150 mg capsule completed clindam ycin 150 MG Oral Capsule [facility] ([facility]) Triamcinolone Acetonide 1 MG/ML Topical Cream triamcinolone acetonide 0.1 % topical cream triamcinolone acetonide 0.1 % topical cream completed triamcinolone acetonide 1 MG/ML Topical Cream [place] ([facility]) Trazodone Hydrochloride 50 MG Oral Table t trazodone 50 mg tablet TAKE ONE TABLET BY MOUTH EVERY DAY AT BEDTIME trazodone 50 mg tablet TAKE ONE TABLET B Y MOUTH EVERY DAY AT BEDTIME completed trazodone hydrochloride 50 MG Oral Tablet [facility] ([facility]) Propranolol Hydrochloride 20 MG Oral Tablet propranolo l 20 mg tablet propranolol 20 mg tablet completed propranolol hydrochloride 20 MG Oral Tablet [facility] ([facility]) sennosides 8.6 mg-docusate sodium 50 mg capsule Take 2 capsules by oral route at bedtime. [id number] 2 capsule(s) completed docusate sodium 50 MG / sennosides, [facility] 8.6 MG Oral Capsule [facility] ([facility]) Clonazepam 1 MG Oral Tablet clonazepam 1 mg tablet clonazepam 1 mg ta blet completed clonazepam 1 MG Oral Tablet [facility] ([facility]) Triamcinolone Acetonide 1 MG/ML Topical Cream triamcinolone acetonide 0.1 % topical cream triamcinolone acetonide 0.1 % topical cream completed triamcinolone acetonide 1 MG/ML Topical Cream [facility] ([facility]) buspirone hydrochloride 15 MG Oral Table t buspirone 15 mg tablet TAKE ONE TABLET BY MOUTH THREE TIMES A DAY buspirone 15 mg tablet TAKE ONE TABLET B Y MOUTH THREE TIMES A DAY completed buspirone hydrochloride 15 MG Oral Tablet [facility] ([facility]) buspirone hydrochloride 7.5 MG Oral Tablet buspirone 7 .5 mg tablet buspirone 7.5 mg tablet completed buspirone h ydrochloride 7.5 MG Oral Tablet [facility] ([facility]) Ergocalciferol [id number] UNT Oral Capsule Vi tamin D2 1,250 mcg (50,000 unit) capsule Vitamin D2 1,250 mcg (50,000 unit) capsule completed ergocalciferol 1.25 MG Oral Capsule [facility] ([facility]) lamotrigine 25 MG Oral Tablet lamotrigine 25 mg tablet lamot rigine 25 mg tablet completed lamotrigine 25 MG Oral Tablet [facility] ([facility]) sennosides 8.6 mg-docusate sodium 50 mg capsule Take 2 capsules by oral route at bedtime. [id number] 2 capsule(s) completed docusate sodium 50 MG / sennosides, NURSING HOME 8.6 MG Oral Capsule [facility] ([facility]) Ergocalciferol [id number] UNT Oral Capsule Vi tamin D2 1,250 mcg (50,000 unit) capsule Vitamin D2 1,250 mcg (50,000 unit) capsule completed ergocalciferol 1.25 MG Oral Capsule [facility] ([facility]) Amitriptyline Hydrochloride 50 MG Oral Tablet amitript yline 50 mg tablet amitriptyline 50 mg tablet completed amitriptyline hydrochloride 50 MG Oral Tablet [facility] ([facility]) Steglatro 5 mg tablet [id number] completed ertugliflozin 5 MG Oral Tablet [Steglatro] [facility] ([facility]) Amitriptyline Hydrochloride 50 MG Oral Tablet amitript yline 50 mg tablet amitriptyline 50 mg tablet completed amitriptyline hydrochloride 50 MG Oral Tablet [facility] ([facility]) Clindamycin 150 MG Oral Capsule clindamycin HCl 150 mg capsule clindamycin HCl 150 mg capsule completed clindam ycin 150 MG Oral Capsule [place] ([facility]) sennosides, NURSING HOME 8.6 MG Oral Tablet [Senna-Time] senna 8.6 mg tablet senna 8.6 mg tablet completed sennosi azam, NURSING HOME 8.6 MG Oral Tablet [Senna-Time] [facility] ([facility]) sennosides 8.6 mg-docusate sodium 50 mg capsule Take 2 capsules by oral route at bedtime. [id number] 2 capsule(s) completed docusate sodium 50 MG / sennosides, [facility]UR[facility] HOME 8.6 MG Oral Capsule [place] ([facility]) sennosides 8.6 mg-docusate sodium 50 mg capsule Take 2 capsules by oral route at bedtime. [id number] 2 capsule(s) completed docusate sodium 50 MG / sennosides, [facility] 8.6 MG Oral Capsule [place] ([facility]) lamotrigine 100 MG Oral Tablet lamotrigi ne 100 mg tablet TAKE ONE TABLET BY MOUTH ONCE DAILY lamotrigine 100 mg tablet TAKE ONE TABLET BY MOUTH ONC E DAILY completed lamotrigine 10 0 MG Oral Tablet [place] ([facility]) Propranolol Hydrochloride 20 MG Oral Tablet propranolo l 20 mg tablet propranolol 20 mg tablet completed propranolol hydrochloride 20 MG Oral Tablet [facility] ([facility]) sennosides, [facility]UR[facility] HOME 8.6 MG Oral Tablet [Senna-Time] senna 8.6 mg tablet senna 8.6 mg tablet completed sennosi azam, [facility]UR[facility] 8.6 MG Oral Tablet [Senna-Time] [facility] ([facility]) Isopropyl Alcohol 0.7 ML/ML Medicated Pad Alcohol Prep Pads Alco hol Prep Pads completed isopropyl alco hol 0.7 ML/ML Medicated Pad [place] ([facility]) ziprasidone 60 MG Oral Capsule ziprasidone 60 mg capsu le ziprasidone 60 mg capsule completed ziprasidone 60 MG Oral Capsule [place] ([facility]) Ketoconazole 20 MG/ML Medicated Shampoo ketoconazole 2 % shampoo ketoconazole 2 % shampoo completed ketoconazole 20 MG/ML Medicated Shampoo [facility] ([facility]) ziprasidone 60 MG Oral Capsule ziprasidone 60 mg capsu le ziprasidone 60 mg capsule completed ziprasidone 60 MG Oral Capsule [place] ([facility]) Mirtazapine 15 MG Oral Tablet mirtazapine 15 mg tablet derrick zapine 15 mg tablet completed mirtazapine 15 MG Oral Tablet [facility] ([facility]) benztropine mesylate 0.5 MG Oral Tablet benztropine 0. 5 mg tablet benztropine 0.5 mg tablet completed benztrop ine mesylate 0.5 MG Oral Tablet [place] ([facility]) OneTouch Delica Plus Lancet 33 gauge [id number] completed OneTouch Delica Plus Lancet 33 gauge [facility] ([facility]) Triamcinolone Acetonide 1 MG/ML Topical Cream triamcinolone acetonide 0.1 % topical cream triamcinolone acetonide 0.1 % topical cream completed triamcinolone acetonide 1 MG/ML Topical Cream [place] ([facility]) 0.5 ML dulaglutide 1.5 MG/ML Auto-Inject or [Trulicity] Trulicity 0.75 mg/0.5 mL subcutaneous pen injector Trulicity 0.75 mg/0.5 mL subcutaneous pen injector completed 0.5 ML dulaglu tide 1.5 MG/ML Auto-Injector [Trulicity] [facility] ([facility]) Triamcinolone Acetonide 1 MG/ML Topical Cream triamcinolone acetonide 0.1 % topical cream triamcinolone acetonide 0.1 % topical cream completed triamcinolone acetonide 1 MG/ML Topical Cream [place] ([facility]) buspirone hydrochloride 7.5 MG Oral Tablet buspirone 7 .5 mg tablet buspirone 7.5 mg tablet completed buspirone h ydrochloride 7.5 MG Oral Tablet [facility] ([facility]) lamotrigine 100 MG Oral Tablet lamotrigi ne 100 mg tablet TAKE ONE TABLET BY MOUTH ONCE DAILY lamotrigine 100 mg tablet TAKE ONE TABLET BY MOUTH ONC E DAILY completed lamotrigine 10 0 MG Oral Tablet [place] ([facility]) buspirone hydrochloride 7.5 MG Oral Tablet buspirone 7 .5 mg tablet buspirone 7.5 mg tablet completed buspirone h ydrochloride 7.5 MG Oral Tablet [place] ([facility]) Amitriptyline Hydrochloride 75 MG Oral Tablet amitript yline 75 mg tablet amitriptyline 75 mg tablet completed amitriptyline hydrochloride 75 MG Oral Tablet [place] ([facility]) Ketoconazole 20 MG/ML Medicated Shampoo ketoconazole 2 % shampoo ketoconazole 2 % shampoo completed ketoconazole 20 MG/ML Medicated Shampoo [place] ([facility]) benztropine mesylate 0.5 MG Oral Tablet benztropine 0. 5 mg tablet benztropine 0.5 mg tablet completed benztrop ine mesylate 0.5 MG Oral Tablet [place] ([facility]) Trazodone Hydrochloride 50 MG Oral Table t trazodone 50 mg tablet TAKE ONE TABLET BY MOUTH EVERY DAY AT BEDTIME trazodone 50 mg tablet TAKE ONE TABLET B Y MOUTH EVERY DAY AT BEDTIME completed trazodone hydrochloride 50 MG Oral Tablet [place] ([facility]) buspirone hydrochloride 10 MG Oral Tablet buspirone 10 mg tablet buspirone 10 mg tablet completed buspirone hydr ochloride 10 MG Oral Tablet [place] ([facility]) Ketoconazole 20 MG/ML Medicated Shampoo ketoconazole 2 % shampoo ketoconazole 2 % shampoo completed ketoconazole 20 MG/ML Medicated Shampoo [place] ([facility]) Cephalexin 500 MG Oral Capsule cephalexin 500 mg capsu le cephalexin 500 mg capsule completed cephalexin 500 MG Oral Capsule [place] ([facility]) buspirone hydrochloride 7.5 MG Oral Tablet buspirone 7 .5 mg tablet buspirone 7.5 mg tablet completed buspirone h ydrochloride 7.5 MG Oral Tablet [place] ([facility]) ziprasidone 60 MG Oral Capsule ziprasidone 60 mg capsu le ziprasidone 60 mg capsule completed ziprasidone 60 MG Oral Capsule [facility] ([facility]) Amitriptyline Hydrochloride 75 MG Oral Tablet amitript yline 75 mg tablet amitriptyline 75 mg tablet completed amitriptyline hydrochloride 75 MG Oral Tablet [facility] ([facility]) Clindamycin 150 MG Oral Capsule clindamycin HCl 150 mg capsule clindamycin HCl 150 mg capsule completed clindam ycin 150 MG Oral Capsule [facility] ([facility]) cefdinir 300 MG Oral Capsule cefdinir 300 mg capsule cefdinir 30 0 mg capsule completed cefdinir 300 M G Oral Capsule [facility] ([facility]) benzonatate 200 MG Oral Capsule benzonatate 200 mg cap [place] benzonatate 200 mg capsule completed benzonatate 20 0 MG Oral Capsule [place] ([facility]) cefdinir 300 MG Oral Capsule cefdinir 300 mg capsule cefdinir 30 0 mg capsule completed cefdinir 300 M G Oral Capsule [place] ([facility]) Isopropyl Alcohol 0.7 ML/ML Medicated Pad Alcohol Prep Pads Alco hol Prep Pads completed isopropyl alco hol 0.7 ML/ML Medicated Pad [facility] ([facility]) lamotrigine 100 MG Oral Tablet lamotrigi ne 100 mg tablet TAKE ONE TABLET BY MOUTH ONCE DAILY lamotrigine 100 mg tablet TAKE ONE TABLET BY MOUTH ONC E DAILY completed lamotrigine 10 0 MG Oral Tablet [place] ([facility]) Triamcinolone Acetonide 1 MG/ML Topical Cream triamcinolone acetonide 0.1 % topical cream triamcinolone acetonide 0.1 % topical cream completed triamcinolone acetonide 1 MG/ML Topical Cream [place] ([facility]) Propranolol Hydrochloride 20 MG Oral Tablet propranolo l 20 mg tablet propranolol 20 mg tablet completed propranolol hydrochloride 20 MG Oral Tablet [facility] ([facility]) Ergocalciferol 17862 UNT Oral Capsule Vi tamin D2 1,250 mcg (50,000 unit) capsule Vitamin D2 1,250 mcg (50,000 unit) capsule completed ergocalciferol 1.25 MG Oral Capsule [facility] ([facility]) sennosides 8.6 mg-docusate sodium 50 mg capsule Take 2 capsules by oral route at bedtime. [id number] 2 capsule(s) completed docusate sodium 50 MG / sennosides, [facility] 8.6 MG Oral Capsule [facility] ([facility]) Ketoconazole 20 MG/ML Medicated Shampoo ketoconazole 2 % shampoo ketoconazole 2 % shampoo completed ketoconazole 20 MG/ML Medicated Shampoo [facility] ([facility]) Mirtazapine 15 MG Oral Tablet mirtazapine 15 mg tablet derrick zapine 15 mg tablet completed mirtazapine 15 MG Oral Tablet [facility] ([facility]) Propranolol Hydrochloride 20 MG Oral Tablet propranolo l 20 mg tablet propranolol 20 mg tablet completed propranolol hydrochloride 20 MG Oral Tablet [facility] ([facility]) Prazosin 1 MG Oral Capsule prazosin 1 mg capsule prazosin 1 mg capsule completed prazosin 1 MG Oral Capsul e [place] ([facility]) Amitriptyline Hydrochloride 50 MG Oral Tablet amitript yline 50 mg tablet amitriptyline 50 mg tablet completed amitriptyline hydrochloride 50 MG Oral Tablet [facility] ([facility]) Steglatro 5 mg tablet [id number] completed ertugliflozin 5 MG Oral Tablet [Steglatro] [facility] ([facility]) Steglatro 5 mg tablet [id number] completed ertugliflozin 5 MG Oral Tablet [Steglatro] [facility] ([facility]) Mirtazapine 15 MG Oral Tablet mirtazapine 15 mg tablet derrick zapine 15 mg tablet completed mirtazapine 15 MG Oral Tablet [facility] ([facility]) Clonazepam 1 MG Oral Tablet clonazepam 1 mg tablet clonazepam 1 mg ta blet completed clonazepam 1 MG Oral Tablet [facility] ([facility]) Amitriptyline Hydrochloride 75 MG Oral Tablet amitript yline 75 mg tablet amitriptyline 75 mg tablet completed amitriptyline hydrochloride 75 MG Oral Tablet [facility] ([facility]) Clonazepam 1 MG Oral Tablet clonazepam 1 mg tablet clonazepam 1 mg ta blet completed clonazepam 1 MG Oral Tablet [facility] ([facility]) benztropine mesylate 0.5 MG Oral Tablet benztropine 0. 5 mg tablet benztropine 0.5 mg tablet completed benztrop ine mesylate 0.5 MG Oral Tablet [facility] ([facility]) Mirtazapine 45 MG Oral Tablet mirtazapine 45 mg tablet derrick zapine 45 mg tablet completed mirtazapine 45 MG Oral Tablet [place] ([facility]) OneTouch Delica Plus Lancet 33 gauge [id number] completed OneTouch Delica Plus Lancet 33 gauge [facility] ([facility]) Amitriptyline Hydrochloride 75 MG Oral Tablet amitript yline 75 mg tablet amitriptyline 75 mg tablet completed amitriptyline hydrochloride 75 MG Oral Tablet [facility] ([facility]) Amitriptyline Hydrochloride 50 MG Oral Tablet amitript yline 50 mg tablet amitriptyline 50 mg tablet completed amitriptyline hydrochloride 50 MG Oral Tablet [place] ([facility]) 0.5 ML dulaglutide 1.5 MG/ML Auto-Inject or [Trulicity] Trulicity 0.75 mg/0.5 mL subcutaneous pen injector Trulicity 0.75 mg/0.5 mL subcutaneous pen injector completed 0.5 ML dulaglu tide 1.5 MG/ML Auto-Injector [Trulicity] [place] ([facility]) Ketoconazole 20 MG/ML Medicated Shampoo ketoconazole 2 % shampoo ketoconazole 2 % shampoo completed ketoconazole 20 MG/ML Medicated Shampoo [place] ([facility]) 0.5 ML dulaglutide 1.5 MG/ML Auto-Inject or [Trulicity] Trulicity 0.75 mg/0.5 mL subcutaneous pen injector Trulicity 0.75 mg/0.5 mL subcutaneous pen injector completed 0.5 ML dulaglu tide 1.5 MG/ML Auto-Injector [Trulicity] [place] ([facility]) Simvastatin 10 MG Oral Tablet simvastati n 10 mg tablet TAKE ONE TABLET BY MOUTH EVERY DAY simvastatin 10 mg tablet TAKE ONE TABLET BY MOUTH EVERY DAY completed simvastatin 10 MG Oral Table t [place] ([facility]) sennosides, [facility] 8.6 MG Oral Tablet [Senna-Time] senna 8.6 mg tablet senna 8.6 mg tablet completed sennosi azam, [facility] 8.6 MG Oral Tablet [Senna-Time] [facility] ([facility]) ziprasidone 60 MG Oral Capsule ziprasidone 60 mg capsu le ziprasidone 60 mg capsule completed ziprasidone 60 MG Oral Capsule [facility] ([facility]) Docusate Sodium 50 MG / sennosides, [facility] 8.6 MG Oral Tablet sennosides 8.6 mg- docusate sodium 50 mg tablet Take 2 tablets by oral route at bedtime. sennosides 8.6 mg-docusate sodium 50 mg tablet Take 2 tablets by oral route at bedtime. 2 completed docusate sodiu m 50 MG / sennosides, [facility] 8.6 MG Oral Tablet [facility] ([facility]) benztropine mesylate 0.5 MG Oral Tablet benztropine 0. 5 mg tablet benztropine 0.5 mg tablet completed benztrop ine mesylate 0.5 MG Oral Tablet [facility] ([facility]) Clonidine Hydrochloride 0.2 MG Oral Tablet clonidine H Cl 0.2 mg tablet clonidine HCl 0.2 mg tablet completed clonidine hydrochloride 0.2 MG Oral Tablet [facility] ([facility]) Amitriptyline Hydrochloride 50 MG Oral Tablet amitript yline 50 mg tablet amitriptyline 50 mg tablet completed amitriptyline hydrochloride 50 MG Oral Tablet [facility] ([facility]) Ergocalciferol 70454 UNT Oral Capsule Vi tamin D2 1,250 mcg (50,000 unit) capsule Vitamin D2 1,250 mcg (50,000 unit) capsule completed ergocalciferol 1.25 MG Oral Capsule [facility] ([facility]) Azithromycin 250 MG Oral Tablet azithromycin 250 mg ta blet azithromycin 250 mg tablet completed azithromycin 25 0 MG Oral Tablet [facility] ([facility]) Clonidine Hydrochloride 0.2 MG Oral Tablet clonidine H Cl 0.2 mg tablet clonidine HCl 0.2 mg tablet completed clonidine hydrochloride 0.2 MG Oral Tablet [facility] ([facility]) OneTouch Verio test strips USE UP TO TWO TIMES A DAY DIRECTED [id number] completed OneTouch Verio test strip s [facility] ([facility]) buspirone hydrochloride 10 MG Oral Tablet buspirone 10 mg tablet buspirone 10 mg tablet completed buspirone hydr ochloride 10 MG Oral Tablet [facility] ([facility]) Azithromycin 250 MG Oral Tablet azithromycin 250 mg ta blet azithromycin 250 mg tablet completed azithromycin 25 0 MG Oral Tablet [facility] ([facility]) Triamcinolone Acetonide 1 MG/ML Topical Cream triamcinolone acetonide 0.1 % topical cream triamcinolone acetonide 0.1 % topical cream completed triamcinolone acetonide 1 MG/ML Topical Cream [place] ([facility]) lamotrigine 25 MG Oral Tablet lamotrigine 25 mg tablet lamot rigine 25 mg tablet completed lamotrigine 25 MG Oral Tablet [facility] ([facility]) Mirtazapine 45 MG Oral Tablet mirtazapine 45 mg tablet derrick zapine 45 mg tablet completed mirtazapine 45 MG Oral Tablet [place] ([facility]) buspirone hydrochloride 10 MG Oral Tablet buspirone 10 mg tablet buspirone 10 mg tablet completed buspirone hydr ochloride 10 MG Oral Tablet [place] ([facility]) Mirtazapine 45 MG Oral Tablet mirtazapine 45 mg tablet derrick zapine 45 mg tablet completed mirtazapine 45 MG Oral Tablet [place] ([facility]) sennosides 8.6 mg-docusate sodium 50 mg capsule Take 2 capsules by oral route at bedtime. [id number] 2 capsule(s) completed docusate sodium 50 MG / sennosides, [facility] 8.6 MG Oral Capsule [place] ([facility]) Ketoconazole 20 MG/ML Medicated Shampoo ketoconazole 2 % shampoo ketoconazole 2 % shampoo completed ketoconazole 20 MG/ML Medicated Shampoo [place] ([facility]) Azithromycin 250 MG Oral Tablet azithromycin 250 mg ta blet azithromycin 250 mg tablet completed azithromycin 25 0 MG Oral Tablet [facility] ([facility]) Famotidine 20 MG Oral Tablet famotidine 20 mg tablet famotidine 20 mg tablet completed famotidine 20 MG Oral Tablet [facility] ([facility]) ziprasidone 60 MG Oral Capsule ziprasidone 60 mg [place]su le ziprasidone 60 mg capsule completed ziprasidone 60 MG Oral Capsule [place] ([facility]) Amitriptyline Hydrochloride 75 MG Oral Tablet amitript yline 75 mg tablet amitriptyline 75 mg tablet completed amitriptyline hydrochloride 75 MG Oral Tablet [facility] ([facility]) Mirtazapine 45 MG Oral Tablet mirtazapine 45 mg tablet derrick zapine 45 mg tablet completed mirtazapine 45 MG Oral Tablet [facility] ([facility]) Propranolol Hydrochloride 20 MG Oral Tablet propranolo l 20 mg tablet propranolol 20 mg tablet completed propranolol hydrochloride 20 MG Oral Tablet [facility] ([facility]) buspirone hydrochloride 15 MG Oral Table t buspirone 15 mg tablet TAKE ONE TABLET BY MOUTH THREE TIMES A DAY buspirone 15 mg tablet TAKE ONE TABLET B Y MOUTH THREE TIMES A DAY completed buspirone hydrochloride 15 MG Oral Tablet [facility] ([facility]) Propranolol Hydrochloride 20 MG Oral Tablet propranolo l 20 mg tablet propranolol 20 mg tablet completed propranolol hydrochloride 20 MG Oral Tablet [facility] ([facility]) Famotidine 20 MG Oral Tablet famotidine 20 mg tablet famotidine 20 mg tablet completed famotidine 20 MG Oral Tablet [facility] ([facility]) benztropine mesylate 0.5 MG Oral Tablet benztropine 0. 5 mg tablet benztropine 0.5 mg tablet completed benztrop ine mesylate 0.5 MG Oral Tablet [facility] ([facility]) ziprasidone 60 MG Oral Capsule ziprasidone 60 mg capsu le ziprasidone 60 mg capsule completed ziprasidone 60 MG Oral Capsule [facility] ([facility]) Triamcinolone Acetonide 1 MG/ML Topical Cream triamcinolone acetonide 0.1 % topical cream triamcinolone acetonide 0.1 % topical cream completed triamcinolone acetonide 1 MG/ML Topical Cream [facility] ([facility]) Famotidine 20 MG Oral Tablet famotidine 20 mg tablet famotidine 20 mg tablet completed famotidine 20 MG Oral Tablet [facility] ([facility]) cefdinir 300 MG Oral Capsule cefdinir 300 mg capsule cefdinir 30 0 mg capsule completed cefdinir 300 M G Oral Capsule [facility] ([facility]) OneTouch Delica Plus Lancet 33 gauge [id number] completed OneTouch Delica Plus Lancet 33 gauge [facility] ([facility]) buspirone hydrochloride 10 MG Oral Tablet buspirone 10 mg tablet buspirone 10 mg tablet completed buspirone hydr ochloride 10 MG Oral Tablet [facility] ([facility]) Amitriptyline Hydrochloride 50 MG Oral Tablet amitript yline 50 mg tablet amitriptyline 50 mg tablet completed amitriptyline hydrochloride 50 MG Oral Tablet [place] ([facility]) lamotrigine 25 MG Oral Tablet lamotrigine 25 mg tablet lamot rigine 25 mg tablet completed lamotrigine 25 MG Oral Tablet [place] ([facility]) Clonazepam 0.5 MG Disintegrating Oral Ta blet clonazepam 0.5 mg disintegrating tablet clonazepam 0.5 mg disintegrating tablet completed clonazepam 0.5 MG Disintegrating Oral Tablet [place] ([facility]) lamotrigine 100 MG Oral Tablet lamotrigi ne 100 mg tablet TAKE ONE TABLET BY MOUTH ONCE DAILY lamotrigine 100 mg tablet TAKE ONE TABLET BY MOUTH ONC E DAILY completed lamotrigine 10 0 MG Oral Tablet [place] ([facility]) Clonazepam 0.5 MG Oral Tablet clonazepam 0.5 mg tablet TAKE ONE TABLET BY MOUTH EVERY DAY MAXIMUM DAILY DOSE ONE TABLET clonazepam 0.5 mg tablet TAKE ONE TABLET BY MOUTH EVERY DAY MAXIMUM DAILY DOSE ONE TABLET completed clonazepam 0.5 MG Oral Tablet AT [facility] ([facility]) Clonidine Hydrochloride 0.2 MG Oral Tablet clonidine H Cl 0.2 mg tablet clonidine HCl 0.2 mg tablet completed clonidine hydrochloride 0.2 MG Oral Tablet [place] ([facility]) Ergocalciferol 30371 UNT Oral Capsule Vi tamin D2 1,250 mcg (50,000 unit) capsule Vitamin D2 1,250 mcg (50,000 unit) capsule completed ergocalciferol 1.25 MG Oral Capsule [place] ([facility]) benztropine mesylate 0.5 MG Oral Tablet benztropine 0. 5 mg tablet benztropine 0.5 mg tablet completed benztrop ine mesylate 0.5 MG Oral Tablet [place] ([facility]) Docusate Sodium 50 MG / sennosides, [facility] 8.6 MG Oral Tablet sennosides 8.6 mg- docusate sodium 50 mg tablet Take 2 tablets by oral route at bedtime. sennosides 8.6 mg-docusate sodium 50 mg tablet Take 2 tablets by oral route at bedtime. 2 completed docusate sodiu m 50 MG / sennosides, [facility] 8.6 MG Oral Tablet [place] ([facility]) OneTouch Delica Plus Lancet 33 gauge [id number] completed OneTouch Delica Plus Lancet 33 gauge [place] ([facility]) Prazosin 1 MG Oral Capsule prazosin 1 mg capsule prazosin 1 mg capsule completed prazosin 1 MG Oral Capsul e [place] ([facility]) Clindamycin 150 MG Oral Capsule clindamycin HCl 150 mg capsule clindamycin HCl 150 mg capsule completed clindam ycin 150 MG Oral Capsule [place] ([facility]) ziprasidone 60 MG Oral Capsule ziprasidone 60 mg capsu le ziprasidone 60 mg capsule completed ziprasidone 60 MG Oral Capsule [place] ([facility]) Docusate Sodium 100 MG Oral Capsule [DOK] DOK 100 mg capsule DOK 100 mg capsule completed docusate sodiu m 100 MG Oral Capsule [DOK] [place] ([facility]) Ergocalciferol 24876 UNT Oral Capsule Vi tamin D2 1,250 mcg (50,000 unit) capsule Vitamin D2 1,250 mcg (50,000 unit) capsule completed ergocalciferol 1.25 MG Oral Capsule [place] ([facility]) Triamcinolone Acetonide 1 MG/ML Topical Cream triamcinolone acetonide 0.1 % topical cream triamcinolone acetonide 0.1 % topical cream completed triamcinolone acetonide 1 MG/ML Topical Cream [place] ([facility]) Ketoconazole 20 MG/ML Medicated Shampoo ketoconazole 2 % shampoo ketoconazole 2 % shampoo completed ketoconazole 20 MG/ML Medicated Shampoo [place] ([facility]) Mirtazapine 15 MG Oral Tablet mirtazapine 15 mg tablet derrick zapine 15 mg tablet completed mirtazapine 15 MG Oral Tablet [place] ([facility]) lamotrigine 25 MG Oral Tablet lamotrigine 25 mg tablet lamot rigine 25 mg tablet completed lamotrigine 25 MG Oral Tablet [place] ([facility]) Clindamycin 150 MG Oral Capsule clindamycin HCl 150 mg capsule clindamycin HCl 150 mg capsule completed clindam ycin 150 MG Oral Capsule [facility] ([facility]) Amitriptyline Hydrochloride 75 MG Oral Tablet amitript yline 75 mg tablet amitriptyline 75 mg tablet completed amitriptyline hydrochloride 75 MG Oral Tablet [facility] ([facility]) Ketoconazole 20 MG/ML Medicated Shampoo ketoconazole 2 % shampoo ketoconazole 2 % shampoo completed ketoconazole 20 MG/ML Medicated Shampoo [place] ([facility]) Clonazepam 1 MG Oral Tablet clonazepam 1 mg tablet clonazepam 1 mg ta blet completed clonazepam 1 MG Oral Tablet [facility] ([facility]) Isopropyl Alcohol 0.7 ML/ML Medicated Pad Alcohol Prep Pads Alco hol Prep Pads completed isopropyl alco hol 0.7 ML/ML Medicated Pad [facility] ([facility]) Clonazepam 1 MG Oral Tablet clonazepam 1 mg tablet clonazepam 1 mg ta blet completed clonazepam 1 MG Oral Tablet [place] ([facility]) Mirtazapine 15 MG Oral Tablet mirtazapine 15 mg tablet derrick zapine 15 mg tablet completed mirtazapine 15 MG Oral Tablet [place] ([facility]) Mirtazapine 15 MG Oral Tablet mirtazapine 15 mg tablet derrick zapine 15 mg tablet completed mirtazapine 15 MG Oral Tablet [place] ([facility]) Clonidine Hydrochloride 0.2 MG Oral Tablet clonidine H Cl 0.2 mg tablet clonidine HCl 0.2 mg tablet completed clonidine hydrochloride 0.2 MG Oral Tablet [place] ([facility]) Famotidine 20 MG Oral Tablet famotidine 20 mg tablet famotidine 20 mg tablet completed famotidine 20 MG Oral Tablet [place] ([facility]) buspirone hydrochloride 15 MG Oral Table t buspirone 15 mg tablet TAKE ONE TABLET BY MOUTH THREE TIMES A DAY buspirone 15 mg tablet TAKE ONE TABLET B Y MOUTH THREE TIMES A DAY completed buspirone hydrochloride 15 MG Oral Tablet [place] ([facility]) Ergocalciferol 65392 UNT Oral Capsule Vi tamin D2 1,250 mcg (50,000 unit) capsule Vitamin D2 1,250 mcg (50,000 unit) capsule completed ergocalciferol 1.25 MG Oral Capsule [place] ([facility]) OneTouch Verio test strips USE DIRECTED UP TO TWO TIMES A DAY [id number] completed OneTouch Verio test strip s [place] ([facility]) benztropine mesylate 0.5 MG Oral Tablet benztropine 0. 5 mg tablet benztropine 0.5 mg tablet completed benztrop ine mesylate 0.5 MG Oral Tablet [place] ([facility]) sennosides 8.6 mg-docusate sodium 50 mg capsule Take 2 capsules by oral route at bedtime. [id number] 2 capsule(s) completed docusate sodium 50 MG / sennosides, [facility] 8.6 MG Oral Capsule [place] ([facility]) 0.5 ML dulaglutide 1.5 MG/ML Auto-Inject or [Trulicity] Trulicity 0.75 mg/0.5 mL subcutaneous pen injector Trulicity 0.75 mg/0.5 mL subcutaneous pen injector completed 0.5 ML dulaglu tide 1.5 MG/ML Auto-Injector [Trulicity] [place] ([facility]) Triamcinolone Acetonide 1 MG/ML Topical Cream triamcinolone acetonide 0.1 % topical cream triamcinolone acetonide 0.1 % topical cream completed triamcinolone acetonide 1 MG/ML Topical Cream [place] ([facility]) benztropine mesylate 0.5 MG Oral Tablet benztropine 0. 5 mg tablet benztropine 0.5 mg tablet completed benztrop ine mesylate 0.5 MG Oral Tablet [facility] ([facility]) benzonatate 200 MG Oral Capsule benzonatate 200 mg cap [place] benzonatate 200 mg capsule completed benzonatate 20 0 MG Oral Capsule [facility] ([facility]) Propranolol Hydrochloride 20 MG Oral Tablet propranolo l 20 mg tablet propranolol 20 mg tablet completed propranolol hydrochloride 20 MG Oral Tablet [facility] ([facility]) OneTouch Verio test strips USE UP TO TWO TIMES A DAY DIRECTED [id number] completed OneTouch Verio test strip s [facility] ([facility]) benzonatate 200 MG Oral Capsule benzonatate 200 mg cap [place] benzonatate 200 mg capsule completed benzonatate 20 0 MG Oral Capsule [facility] ([facility]) Prazosin 1 MG Oral Capsule prazosin 1 mg capsule prazosin 1 mg capsule completed prazosin 1 MG Oral Capsul e [facility] ([facility]) benzonatate 200 MG Oral Capsule benzonatate 200 mg cap [place] benzonatate 200 mg capsule completed benzonatate 20 0 MG Oral Capsule [facility] ([facility]) Mirtazapine 45 MG Oral Tablet mirtazapine 45 mg tablet derrick zapine 45 mg tablet completed mirtazapine 45 MG Oral Tablet [facility] ([facility]) buspirone hydrochloride 7.5 MG Oral Tablet buspirone 7 .5 mg tablet buspirone 7.5 mg tablet completed buspirone h ydrochloride 7.5 MG Oral Tablet [facility] ([facility]) Amitriptyline Hydrochloride 50 MG Oral Tablet amitript yline 50 mg tablet amitriptyline 50 mg tablet completed amitriptyline hydrochloride 50 MG Oral Tablet [place] ([facility]) ziprasidone 60 MG Oral Capsule ziprasidone 60 mg capsu le ziprasidone 60 mg capsule completed ziprasidone 60 MG Oral Capsule [facility] ([facility]) Clindamycin 150 MG Oral Capsule clindamycin HCl 150 mg capsule clindamycin HCl 150 mg capsule completed clindam ycin 150 MG Oral Capsule [facility] ([facility]) Mirtazapine 45 MG Oral Tablet mirtazapine 45 mg tablet derrick zapine 45 mg tablet completed mirtazapine 45 MG Oral Tablet [place] ([facility]) buspirone hydrochloride 7.5 MG Oral Tablet buspirone 7 .5 mg tablet buspirone 7.5 mg tablet completed buspirone h ydrochloride 7.5 MG Oral Tablet [facility] ([facility]) benzonatate 200 MG Oral Capsule benzonatate 200 mg cap [place] benzonatate 200 mg capsule completed benzonatate 20 0 MG Oral Capsule [place] ([facility]) Famotidine 20 MG Oral Tablet famotidine 20 mg tablet famotidine 20 mg tablet completed famotidine 20 MG Oral Tablet [facility] ([facility]) Ergocalciferol 78625 UNT Oral Capsule Vi tamin D2 1,250 mcg (50,000 unit) capsule Vitamin D2 1,250 mcg (50,000 unit) capsule completed ergocalciferol 1.25 MG Oral Capsule [facility] ([facility]) 0.5 ML dulaglutide 1.5 MG/ML Auto-Inject or [Trulicity] Trulicity 0.75 mg/0.5 mL subcutaneous pen injector Trulicity 0.75 mg/0.5 mL subcutaneous pen injector completed 0.5 ML dulaglu tide 1.5 MG/ML Auto-Injector [Trulicity] [facility] ([facility]) buspirone hydrochloride 7.5 MG Oral Tablet buspirone 7 .5 mg tablet buspirone 7.5 mg tablet completed buspirone h ydrochloride 7.5 MG Oral Tablet [facility] ([facility]) cefdinir 300 MG Oral Capsule cefdinir 300 mg capsule cefdinir 30 0 mg capsule completed cefdinir 300 M G Oral Capsule [place] ([facility]) Amitriptyline Hydrochloride 50 MG Oral Tablet amitript yline 50 mg tablet amitriptyline 50 mg tablet completed amitriptyline hydrochloride 50 MG Oral Tablet [facility] ([facility]) Mirtazapine 15 MG Oral Tablet mirtazapine 15 mg tablet derrick zapine 15 mg tablet completed mirtazapine 15 MG Oral Tablet [facility] ([facility]) Clonidine Hydrochloride 0.2 MG Oral Tablet clonidine H Cl 0.2 mg tablet clonidine HCl 0.2 mg tablet completed clonidine hydrochloride 0.2 MG Oral Tablet [facility] ([facility]) Clonazepam 1 MG Oral Tablet clonazepam 1 mg tablet clonazepam 1 mg ta blet completed clonazepam 1 MG Oral Tablet [place] ([facility]) sennosides 8.6 mg-docusate sodium 50 mg capsule Take 2 capsules by oral route at bedtime. [id number] 2 capsule(s) completed docusate sodium 50 MG / sennosides, [facility] 8.6 MG Oral Capsule [facility] ([facility]) Azithromycin 250 MG Oral Tablet azithromycin 250 mg ta blet azithromycin 250 mg tablet completed azithromycin 25 0 MG Oral Tablet [place] ([facility]) cefdinir 300 MG Oral Capsule cefdinir 300 mg capsule cefdinir 30 0 mg capsule completed cefdinir 300 M G Oral Capsule [facility] ([facility]) Docusate Sodium 50 MG / sennosides, [facility]URSING HOME 8.6 MG Oral Tablet sennosides 8.6 mg- docusate sodium 50 mg tablet Take 2 tablets by oral route at bedtime. sennosides 8.6 mg-docusate sodium 50 mg tablet Take 2 tablets by oral route at bedtime. 2 completed docusate sodiu m 50 MG / sennosides, [facility] 8.6 MG Oral Tablet [facility] ([facility]) Clonazepam 1 MG Oral Tablet clonazepam 1 mg tablet clonazepam 1 mg ta blet completed clonazepam 1 MG Oral Tablet [facility] ([facility]) Clonazepam 1 MG Oral Tablet clonazepam 1 mg tablet clonazepam 1 mg ta blet completed clonazepam 1 MG Oral Tablet JEFF ([facility]) benztropine mesylate 0.5 MG Oral Tablet benztropine 0. 5 mg tablet benztropine 0.5 mg tablet completed benztrop ine mesylate 0.5 MG Oral Tablet JEFF ([facility]) ziprasidone 60 MG Oral Capsule ziprasidone 60 mg [facility] ziprasidone 60 mg capsule completed ziprasidone 60 MG Oral Capsule JEFF ([facility]) Amitriptyline Hydrochloride 75 MG Oral Tablet amitript yline 75 mg tablet amitriptyline 75 mg tablet completed amitriptyline hydrochloride 75 MG Oral Tablet JEFF ([facility]) Docusate Sodium 50 MG / sennosides, NURSING HOME 8.6 MG Oral Tablet sennosides 8.6 mg- docusate sodium 50 mg tablet Take 2 tablets by oral route at bedtime. sennosides 8.6 mg-docusate sodium 50 mg tablet Take 2 tablets by oral route at bedtime. 2 completed docusate sodiu m 50 MG / sennosides, NURSING HOME 8.6 MG Oral Tablet JEFF ([facility]) benztropine mesylate 0.5 MG Oral Tablet benztropine 0. 5 mg tablet benztropine 0.5 mg tablet completed benztrop ine mesylate 0.5 MG Oral Tablet JEFF ([facility]) Steglatro 5 mg tablet [id number] completed ertugliflozin 5 MG Oral Tablet [Steglatro] JEFF ([facility]) buspirone hydrochloride 10 MG Oral Tablet buspirone 10 mg tablet buspirone 10 mg tablet completed buspirone hydr ochloride 10 MG Oral Tablet JEFF ([facility]) OneTouch Delica Plus Lancet 33 gauge [id number] completed OneTouch Delica Plus Lancet 33 gauge JEFF ([facility]) Prazosin 1 MG Oral Capsule prazosin 1 mg capsule prazosin 1 mg capsule completed prazosin 1 MG Oral Capsul e JEFF ([facility]) Clonazepam 0.5 MG Disintegrating Oral Ta blet clonazepam 0.5 mg disintegrating tablet clonazepam 0.5 mg disintegrating tablet completed clonazepam 0.5 MG Disintegrating Oral Tablet JEFF ([facility]) Docusate Sodium 50 MG / sennosides, NURSING HOME 8.6 MG Oral Tablet sennosides 8.6 mg- docusate sodium 50 mg tablet Take 2 tablets by oral route at bedtime. sennosides 8.6 mg-docusate sodium 50 mg tablet Take 2 tablets by oral route at bedtime. 2 completed docusate sodiu m 50 MG / sennosides, NURSING HOME 8.6 MG Oral Tablet JEFF ([facility]) Docusate Sodium 50 MG / sennosides, NURSING HOME 8.6 MG Oral Tablet sennosides 8.6 mg- docusate sodium 50 mg tablet Take 2 tablets by oral route at bedtime. sennosides 8.6 mg-docusate sodium 50 mg tablet Take 2 tablets by oral route at bedtime. 2 completed docusate sodiu m 50 MG / sennosides, NURSING HOME 8.6 MG Oral Tablet JEFF ([facility]) Steglatro 5 mg tablet [id number] completed ertugliflozin 5 MG Oral Tablet [Steglatro] JEFF ([facility]) ziprasidone 60 MG Oral Capsule ziprasidone 60 mg [place] ziprasidone 60 mg capsule completed ziprasidone 60 MG Oral Capsule JEFF ([facility]) Amitriptyline Hydrochloride 50 MG Oral Tablet amitript yline 50 mg tablet amitriptyline 50 mg tablet completed amitriptyline hydrochloride 50 MG Oral Tablet JEFF ([facility]) Prazosin 1 MG Oral Capsule prazosin 1 mg capsule prazosin 1 mg capsule completed prazosin 1 MG Oral Capsul e JEFF ([facility]) sennosides, NURSING HOME 8.6 MG Oral Tablet [Senna-Time] senna 8.6 mg tablet senna 8.6 mg tablet completed sennosi azam, NURSING HOME 8.6 MG Oral Tablet [[place]enna-Time] [place] ([facility]) 0.5 ML dulaglutide 1.5 MG/ML Auto-Inject or [Trulicity] Trulicity 0.75 mg/0.5 mL subcutaneous pen injector Trulicity 0.75 mg/0.5 mL subcutaneous pen injector completed 0.5 ML dulaglu tide 1.5 MG/ML Auto-Injector [Trulicity] [place] ([facility]) Mirtazapine 45 MG Oral Tablet mirtazapine 45 mg tablet derrick zapine 45 mg tablet completed mirtazapine 45 MG Oral Tablet [place] ([facility]) Docusate Sodium 50 MG / sennosides, NURSING HOME 8.6 MG Oral Tablet sennosides 8.6 mg- docusate sodium 50 mg tablet Take 2 tablets by oral route at bedtime. sennosides 8.6 mg-docusate sodium 50 mg tablet Take 2 tablets by oral route at bedtime. 2 completed docusate sodiu m 50 MG / sennosides, NURSING HOME 8.6 MG Oral Tablet [place] ([facility]) buspirone hydrochloride 10 MG Oral Tablet buspirone 10 mg tablet buspirone 10 mg tablet completed buspirone hydr ochloride 10 MG Oral Tablet [place] ([facility]) Mirtazapine 45 MG Oral Tablet mirtazapine 45 mg tablet derrick zapine 45 mg tablet completed mirtazapine 45 MG Oral Tablet JE[facility] ([facility]) Amitriptyline Hydrochloride 50 MG Oral Tablet amitript yline 50 mg tablet amitriptyline 50 mg tablet completed amitriptyline hydrochloride 50 MG Oral Tablet JEFF ([facility]) Clonazepam 1 MG Oral Tablet clonazepam 1 mg tablet clonazepam 1 mg ta blet completed clonazepam 1 MG Oral Tablet JE[facility] ([facility]) Ketoconazole 20 MG/ML Medicated Shampoo ketoconazole 2 % shampoo ketoconazole 2 % shampoo completed ketoconazole 20 MG/ML Medicated Shampoo JEFF ([facility]) OneTouch Verio test strips USE UP TO TWO TIMES A DAY DIRECTED [id number] completed OneTouch Verio test strip s JEFF ([facility]) Famotidine 20 MG Oral Tablet famotidine 20 mg tablet famotidine 20 mg tablet completed famotidine 20 MG Oral Tablet JEFF ([facility]) Clonazepam 1 MG Oral Tablet clonazepam 1 mg tablet clonazepam 1 mg ta blet completed clonazepam 1 MG Oral Tablet JE[facility] ([facility]) Azithromycin 250 MG Oral Tablet azithromycin 250 mg ta blet azithromycin 250 mg tablet completed azithromycin 25 0 MG Oral Tablet [place] ([facility]) Mirtazapine 45 MG Oral Tablet mirtazapine 45 mg tablet derrick zapine 45 mg tablet completed mirtazapine 45 MG Oral Tablet [place] ([facility]) Amitriptyline Hydrochloride 75 MG Oral Tablet amitript yline 75 mg tablet amitriptyline 75 mg tablet completed amitriptyline hydrochloride 75 MG Oral Tablet JE[facility] ([facility]) Ketoconazole 20 MG/ML Medicated Shampoo ketoconazole 2 % shampoo ketoconazole 2 % shampoo completed ketoconazole 20 MG/ML Medicated Shampoo [place] ([facility]) Clonazepam 1 MG Oral Tablet clonazepam 1 mg tablet clonazepam 1 mg ta blet completed clonazepam 1 MG Oral Tablet JE[facility] ([facility]) Triamcinolone Acetonide 1 MG/ML Topical Cream triamcinolone acetonide 0.1 % topical cream triamcinolone acetonide 0.1 % topical cream completed triamcinolone acetonide 1 MG/ML Topical Cream [place] ([facility]) Famotidine 20 MG Oral Tablet famotidine 20 mg tablet famotidine 20 mg tablet completed famotidine 20 MG Oral Tablet JE[facility] ([facility]) Steglatro 5 mg tablet [id number] completed ertugliflozin 5 MG Oral Tablet [Steglatro] JE[facility] ([facility]) Clonazepam 0.5 MG Oral Tablet clonazepam 0.5 mg tablet TAKE ONE TABLET BY MOUTH NEEDED FOR 3 DAYS THEN ONE HALF TABLET UNTIL FINISHED MAXIMUM DAILY DOSE ONE TABLET clonazepam 0.5 mg tablet TAKE ONE TABLET BY MOUTH NEEDED FOR 3 DAYS THEN ONE HALF TABLET UNTIL FINISHED MAXIMUM DAILY DOSE ONE TABLET completed clonazepam 0.5 MG Or al Tablet JEFF ([facility]) Mirtazapine 45 MG Oral Tablet mirtazapine 45 mg tablet derrick zapine 45 mg tablet completed mirtazapine 45 MG Oral Tablet [place] ([facility]) Ketoconazole 20 MG/ML Medicated Shampoo ketoconazole 2 % shampoo ketoconazole 2 % shampoo completed ketoconazole 20 MG/ML Medicated Shampoo JE[facility] ([facility]) Azithromycin 250 MG Oral Tablet azithromycin 250 mg ta blet azithromycin 250 mg tablet completed azithromycin 25 0 MG Oral Tablet JE[facility] ([facility]) cefdinir 300 MG Oral Capsule cefdinir 300 mg capsule cefdinir 30 0 mg capsule completed cefdinir 300 M G Oral Capsule [place] ([facility]) OneTouch Verio Flex Meter [id number] compl eted OneTouch Verio Flex Meter [place] ([facility]) Simvastatin 10 MG Oral Tablet simvastati n 10 mg tablet TAKE ONE TABLET BY MOUTH EVERY DAY simvastatin 10 mg tablet TAKE ONE TABLET BY MOUTH EVERY DAY completed simvastatin 10 MG Oral Table t [place] ([facility]) buspirone hydrochloride 7.5 MG Oral Tablet buspirone 7 .5 mg tablet buspirone 7.5 mg tablet completed buspirone h ydrochloride 7.5 MG Oral Tablet [place] ([facility]) Famotidine 20 MG Oral Tablet famotidine 20 mg tablet famotidine 20 mg tablet completed famotidine 20 MG Oral Tablet [place] ([facility]) buspirone hydrochloride 7.5 MG Oral Tablet buspirone 7 .5 mg tablet buspirone 7.5 mg tablet completed buspirone h ydrochloride 7.5 MG Oral Tablet JEFF ([facility]) buspirone hydrochloride 7.5 MG Oral Tablet buspirone 7 .5 mg tablet buspirone 7.5 mg tablet completed buspirone h ydrochloride 7.5 MG Oral Tablet [place] ([facility]) sennosides 8.6 mg-docusate sodium 50 mg capsule Take 2 capsules by oral route at bedtime. [id number] 2 capsule(s) completed docusate sodium 50 MG / sennosides, NURSING HOME 8.6 MG Oral Capsule JEFF ([facility]) cefdinir 300 MG Oral Capsule cefdinir 300 mg capsule cefdinir 30 0 mg capsule completed cefdinir 300 M G Oral Capsule JEFF ([facility]) Triamcinolone Acetonide 1 MG/ML Topical Cream triamcinolone acetonide 0.1 % topical cream triamcinolone acetonide 0.1 % topical cream completed triamcinolone acetonide 1 MG/ML Topical Cream [place] ([facility]) Docusate Sodium 100 MG Oral Capsule [DOK] DOK 100 mg capsule DOK 100 mg capsule completed docusate sodiu m 100 MG Oral Capsule [DOK] [place] ([facility]) benzonatate 200 MG Oral Capsule benzonatate 200 mg cap [place] benzonatate 200 mg capsule completed benzonatate 20 0 MG Oral Capsule [place] ([facility]) Simvastatin 10 MG Oral Tablet simvastati n 10 mg tablet TAKE ONE TABLET BY MOUTH EVERY DAY simvastatin 10 mg tablet TAKE ONE TABLET BY MOUTH EVERY DAY completed simvastatin 10 MG Oral Table t JEFF ([facility]) Clonazepam 1 MG Oral Tablet clonazepam 1 mg tablet clonazepam 1 mg ta blet completed clonazepam 1 MG Oral Tablet [place] ([facility]) Steglatro 5 mg tablet [id number] completed ertugliflozin 5 MG Oral Tablet [Steglatro] [place] ([facility]) Clonidine Hydrochloride 0.2 MG Oral Tablet clonidine H Cl 0.2 mg tablet clonidine HCl 0.2 mg tablet completed clonidine hydrochloride 0.2 MG Oral Tablet JE[facility] ([facility]) OneTouch Verio Flex Meter [id number] compl eted OneTouch Verio Flex Meter JEFF ([facility]) Mirtazapine 45 MG Oral Tablet mirtazapine 45 mg tablet derrick zapine 45 mg tablet completed mirtazapine 45 MG Oral Tablet [place] ([facility]) Amitriptyline Hydrochloride 50 MG Oral Tablet amitript yline 50 mg tablet amitriptyline 50 mg tablet completed amitriptyline hydrochloride 50 MG Oral Tablet [place] ([facility]) Famotidine 20 MG Oral Tablet famotidine 20 mg tablet famotidine 20 mg tablet completed famotidine 20 MG Oral Tablet JE[facility] ([facility]) Clonidine Hydrochloride 0.2 MG Oral Tablet clonidine H Cl 0.2 mg tablet clonidine HCl 0.2 mg tablet completed clonidine hydrochloride 0.2 MG Oral Tablet JE[facility] ([facility]) OneTouch Verio Flex Meter [id number] compl eted OneTouch Verio Flex Meter JE[facility] ([facility]) Mirtazapine 45 MG Oral Tablet mirtazapine 45 mg tablet derrick zapine 45 mg tablet completed mirtazapine 45 MG Oral Tablet [place] ([facility]) Clonazepam 1 MG Oral Tablet clonazepam 1 mg tablet clonazepam 1 mg ta blet completed clonazepam 1 MG Oral Tablet [place] ([facility]) Steglatro 5 mg tablet [id number] completed ertugliflozin 5 MG Oral Tablet [Steglatro] [place] ([facility]) Amitriptyline Hydrochloride 50 MG Oral Tablet amitript yline 50 mg tablet amitriptyline 50 mg tablet completed amitriptyline hydrochloride 50 MG Oral Tablet [place] ([facility]) Mirtazapine 15 MG Oral Tablet mirtazapine 15 mg tablet derrick zapine 15 mg tablet completed mirtazapine 15 MG Oral Tablet [place] ([facility]) benzonatate 200 MG Oral Capsule benzonatate 200 mg cap [place] benzonatate 200 mg capsule completed benzonatate 20 0 MG Oral Capsule [place] ([facility]) Steglatro 5 mg tablet [id number] completed ertugliflozin 5 MG Oral Tablet [Steglatro] JEFF ([facility]) buspirone hydrochloride 10 MG Oral Tablet buspirone 10 mg tablet buspirone 10 mg tablet completed buspirone hydr ochloride 10 MG Oral Tablet [place] ([facility]) Propranolol Hydrochloride 20 MG Oral Tablet propranolo l 20 mg tablet propranolol 20 mg tablet completed propranolol hydrochloride 20 MG Oral Tablet [place] ([facility]) BD Ultra-Fine Short Pen Needle 31 gauge x 5/16" USE ONCE DAILY [id number] completed BD Ultra-Fine Short Pen Need le 31 gauge x 5/16" [place] ([facility]) Steglatro 5 mg tablet [id number] completed ertugliflozin 5 MG Oral Tablet [Steglatro] JEFF ([facility]) buspirone hydrochloride 10 MG Oral Tablet buspirone 10 mg tablet buspirone 10 mg tablet completed buspirone hydr ochloride 10 MG Oral Tablet JE[facility] ([facility]) lamotrigine 25 MG Oral Tablet lamotrigine 25 mg tablet lamot rigine 25 mg tablet completed lamotrigine 25 MG Oral Tablet JE[facility] ([facility]) Isopropyl Alcohol 0.7 ML/ML Medicated Pad Alcohol Prep Pads Alco hol Prep Pads completed isopropyl alco hol 0.7 ML/ML Medicated Pad JEFF ([facility]) cefdinir 300 MG Oral Capsule cefdinir 300 mg capsule cefdinir 30 0 mg capsule completed cefdinir 300 M G Oral Capsule [place] ([facility]) Azithromycin 250 MG Oral Tablet azithromycin 250 mg ta blet azithromycin 250 mg tablet completed azithromycin 25 0 MG Oral Tablet [place] ([facility]) sennosides 8.6 mg-docusate sodium 50 mg capsule Take 2 capsules by oral route at bedtime. [id number] 2 capsule(s) completed docusate sodium 50 MG / sennosides, NURSING HOME 8.6 MG Oral Capsule JEFF ([facility]) Propranolol Hydrochloride 20 MG Oral Tablet propranolo l 20 mg tablet propranolol 20 mg tablet completed propranolol hydrochloride 20 MG Oral Tablet [place] ([facility]) Docusate Sodium 50 MG / sennosides, NURSING HOME 8.6 MG Oral Tablet sennosides 8.6 mg- docusate sodium 50 mg tablet Take 2 tablets by oral route at bedtime. sennosides 8.6 mg-docusate sodium 50 mg tablet Take 2 tablets by oral route at bedtime. 2 completed docusate sodiu m 50 MG / sennosides, NURSING HOME 8.6 MG Oral Tablet JEFF ([facility]) OneTouch Delica Plus Lancet 33 gauge [id number] completed OneTouch Delica Plus Lancet 33 gauge JEFF ([facility]) buspirone hydrochloride 7.5 MG Oral Tablet buspirone 7 .5 mg tablet buspirone 7.5 mg tablet completed buspirone h ydrochloride 7.5 MG Oral Tablet JEFF ([facility]) Azithromycin 250 MG Oral Tablet azithromycin 250 mg ta blet azithromycin 250 mg tablet completed azithromycin 25 0 MG Oral Tablet JE[facility] ([facility]) Clonidine Hydrochloride 0.2 MG Oral Tablet clonidine H Cl 0.2 mg tablet clonidine HCl 0.2 mg tablet completed clonidine hydrochloride 0.2 MG Oral Tablet JE[facility] ([facility]) Clonidine Hydrochloride 0.2 MG Oral Tablet clonidine H Cl 0.2 mg tablet clonidine HCl 0.2 mg tablet completed clonidine hydrochloride 0.2 MG Oral Tablet JE[facility] ([facility]) Clonazepam 1 MG Oral Tablet clonazepam 1 mg tablet clonazepam 1 mg ta blet completed clonazepam 1 MG Oral Tablet [place] ([facility]) Simvastatin 10 MG Oral Tablet simvastati n 10 mg tablet TAKE ONE TABLET BY MOUTH EVERY DAY simvastatin 10 mg tablet TAKE ONE TABLET BY MOUTH EVERY DAY completed simvastatin 10 MG Oral Table t [place] ([facility]) benztropine mesylate 0.5 MG Oral Tablet benztropine 0. 5 mg tablet benztropine 0.5 mg tablet completed benztrop ine mesylate 0.5 MG Oral Tablet JE[facility] ([facility]) lamotrigine 25 MG Oral Tablet lamotrigine 25 mg tablet lamot rigine 25 mg tablet completed lamotrigine 25 MG Oral Tablet [place] ([facility]) Amitriptyline Hydrochloride 75 MG Oral Tablet amitript yline 75 mg tablet amitriptyline 75 mg tablet completed amitriptyline hydrochloride 75 MG Oral Tablet JE[facility] ([facility]) Mirtazapine 15 MG Oral Tablet mirtazapine 15 mg tablet derrick zapine 15 mg tablet completed mirtazapine 15 MG Oral Tablet JE[facility] ([facility]) Propranolol Hydrochloride 20 MG Oral Tablet propranolo l 20 mg tablet propranolol 20 mg tablet completed propranolol hydrochloride 20 MG Oral Tablet JE[facility] ([facility]) OneTouch Delica Plus Lancet 33 gauge [id number] completed OneTouch Delica Plus Lancet 33 gauge JE[facility] ([facility]) Azithromycin 250 MG Oral Tablet azithromycin 250 mg ta blet azithromycin 250 mg tablet completed azithromycin 25 0 MG Oral Tablet [place] ([facility]) Docusate Sodium 50 MG / sennosides, NURSING HOME 8.6 MG Oral Tablet sennosides 8.6 mg- docusate sodium 50 mg tablet Take 2 tablets by oral route at bedtime. sennosides 8.6 mg-docusate sodium 50 mg tablet Take 2 tablets by oral route at bedtime. 2 completed docusate sodiu m 50 MG / sennosides, NURSING HOME 8.6 MG Oral Tablet JE[facility] ([facility]) Isopropyl Alcohol 0.7 ML/ML Medicated Pad Alcohol Prep Pads Alco hol Prep Pads completed isopropyl alco hol 0.7 ML/ML Medicated Pad JE[facility] ([facility]) Amitriptyline Hydrochloride 75 MG Oral Tablet amitript yline 75 mg tablet amitriptyline 75 mg tablet completed amitriptyline hydrochloride 75 MG Oral Tablet [place] ([facility]) 0.5 ML dulaglutide 1.5 MG/ML Auto-Inject or [Trulicity] Trulicity 0.75 mg/0.5 mL subcutaneous pen injector Trulicity 0.75 mg/0.5 mL subcutaneous pen injector completed 0.5 ML dulaglu tide 1.5 MG/ML Auto-Injector [Trulicity] [place] ([facility]) Clonazepam 0.5 MG Disintegrating Oral Ta blet clonazepam 0.5 mg disintegrating tablet clonazepam 0.5 mg disintegrating tablet completed clonazepam 0.5 MG Disintegrating Oral Tablet [place] ([facility]) Docusate Sodium 100 MG Oral Capsule [DOK] DOK 100 mg capsule DOK 100 mg capsule completed docusate sodiu m 100 MG Oral Capsule [DOK] [place] ([facility]) Prazosin 1 MG Oral Capsule prazosin 1 mg capsule prazosin 1 mg capsule completed prazosin 1 MG Oral Capsul e [place] ([facility]) Steglatro 5 mg tablet [id number] completed ertugliflozin 5 MG Oral Tablet [Steglatro] [place] ([facility]) Amitriptyline Hydrochloride 75 MG Oral Tablet amitript yline 75 mg tablet amitriptyline 75 mg tablet completed amitriptyline hydrochloride 75 MG Oral Tablet [place] ([facility]) buspirone hydrochloride 7.5 MG Oral Tablet buspirone 7 .5 mg tablet buspirone 7.5 mg tablet completed buspirone h ydrochloride 7.5 MG Oral Tablet JE[facility] ([facility]) Clindamycin 150 MG Oral Capsule clindamycin HCl 150 mg capsule clindamycin HCl 150 mg capsule completed clindam ycin 150 MG Oral Capsule JE[facility] ([facility]) benztropine mesylate 0.5 MG Oral Tablet benztropine 0. 5 mg tablet benztropine 0.5 mg tablet completed benztrop ine mesylate 0.5 MG Oral Tablet JE[facility] ([facility]) lamotrigine 25 MG Oral Tablet lamotrigine 25 mg tablet lamot rigine 25 mg tablet completed lamotrigine 25 MG Oral Tablet [facility] ([facility]) Clonidine Hydrochloride 0.2 MG Oral Tablet clonidine H Cl 0.2 mg tablet clonidine HCl 0.2 mg tablet completed clonidine hydrochloride 0.2 MG Oral Tablet [place] ([facility]) OneTouch Verio Flex Meter [id number] compl eted OneTouch Verio Flex Meter [facility] ([facility]) Mirtazapine 15 MG Oral Tablet mirtazapine 15 mg tablet derrick zapine 15 mg tablet completed mirtazapine 15 MG Oral Tablet JE[facility] ([facility]) 0.5 ML dulaglutide 1.5 MG/ML Auto-Inject or [Trulicity] Trulicity 0.75 mg/0.5 mL subcutaneous pen injector Trulicity 0.75 mg/0.5 mL subcutaneous pen injector completed 0.5 ML dulaglu tide 1.5 MG/ML Auto-Injector [Trulicity] JEFF ([facility]) Docusate Sodium 50 MG / sennosides, NURSING HOME 8.6 MG Oral Tablet sennosides 8.6 mg- docusate sodium 50 mg tablet Take 2 tablets by oral route at bedtime. sennosides 8.6 mg-docusate sodium 50 mg tablet Take 2 tablets by oral route at bedtime. 2 completed docusate sodiu m 50 MG / sennosides, NURSING HOME 8.6 MG Oral Tablet JEFF ([facility]) Clonazepam 0.5 MG Disintegrating Oral Ta blet clonazepam 0.5 mg disintegrating tablet clonazepam 0.5 mg disintegrating tablet completed clonazepam 0.5 MG Disintegrating Oral Tablet JEFF ([facility]) Amitriptyline Hydrochloride 75 MG Oral Tablet amitript yline 75 mg tablet amitriptyline 75 mg tablet completed amitriptyline hydrochloride 75 MG Oral Tablet JE[facility] ([facility]) Docusate Sodium 50 MG / sennosides, NURSING HOME 8.6 MG Oral Tablet sennosides 8.6 mg- docusate sodium 50 mg tablet Take 2 tablets by oral route at bedtime. sennosides 8.6 mg-docusate sodium 50 mg tablet Take 2 tablets by oral route at bedtime. 2 completed docusate sodiu m 50 MG / sennosides, NURSING HOME 8.6 MG Oral Tablet JE[facility] ([facility]) buspirone hydrochloride 10 MG Oral Tablet buspirone 10 mg tablet buspirone 10 mg tablet completed buspirone hydr ochloride 10 MG Oral Tablet [place] ([facility]) sennosides, NURSING HOME 8.6 MG Oral Tablet [Senna-Time] senna 8.6 mg tablet senna 8.6 mg tablet completed sennosi azam, NURSING HOME 8.6 MG Oral Tablet [Senna-Time] [facility] ([facility]) lamotrigine 25 MG Oral Tablet lamotrigine 25 mg tablet lamot rigine 25 mg tablet completed lamotrigine 25 MG Oral Tablet [place] ([facility]) lamotrigine 100 MG Oral Tablet lamotrigi ne 100 mg tablet TAKE ONE TABLET BY MOUTH ONCE DAILY lamotrigine 100 mg tablet TAKE ONE TABLET BY MOUTH ONC E DAILY completed lamotrigine 10 0 MG Oral Tablet JE[facility] ([facility]) Propranolol Hydrochloride 20 MG Oral Tablet propranolo l 20 mg tablet propranolol 20 mg tablet completed propranolol hydrochloride 20 MG Oral Tablet JE[facility] ([facility]) OneTouch Delica Plus Lancet 33 gauge [id number] completed OneTouch Delica Plus Lancet 33 gauge JE[facility] ([facility]) Prazosin 1 MG Oral Capsule prazosin 1 mg capsule prazosin 1 mg capsule completed prazosin 1 MG Oral Capsul e [place] ([facility]) Simvastatin 10 MG Oral Tablet simvastati n 10 mg tablet TAKE ONE TABLET BY MOUTH EVERY DAY simvastatin 10 mg tablet TAKE ONE TABLET BY MOUTH EVERY DAY completed simvastatin 10 MG Oral Table t JEFF ([facility]) sennosides 8.6 mg-docusate sodium 50 mg capsule Take 2 capsules by oral route at bedtime. [id number] 2 capsule(s) completed docusate sodium 50 MG / sennosides, NURSING HOME 8.6 MG Oral Capsule [place] ([facility]) OneTouch Verio Flex Meter [id number] compl eted OneTouch Verio Flex Meter [facility] ([facility]) buspirone hydrochloride 15 MG Oral Table t buspirone 15 mg tablet TAKE ONE TABLET BY MOUTH THREE TIMES A DAY buspirone 15 mg tablet TAKE ONE TABLET B Y MOUTH THREE TIMES A DAY completed buspirone hydrochloride 15 MG Oral Tablet [facility] ([facility]) Clonazepam 1 MG Oral Tablet clonazepam 1 mg tablet clonazepam 1 mg ta blet completed clonazepam 1 MG Oral Tablet [place] ([facility]) Amitriptyline Hydrochloride 75 MG Oral Tablet amitript yline 75 mg tablet amitriptyline 75 mg tablet completed amitriptyline hydrochloride 75 MG Oral Tablet [facility] ([facility]) Amitriptyline Hydrochloride 75 MG Oral Tablet amitript yline 75 mg tablet amitriptyline 75 mg tablet completed amitriptyline hydrochloride 75 MG Oral Tablet [facility] ([facility]) Clonazepam 0.5 MG Disintegrating Oral Ta blet clonazepam 0.5 mg disintegrating tablet clonazepam 0.5 mg disintegrating tablet completed clonazepam 0.5 MG Disintegrating Oral Tablet [place] ([facility]) Simvastatin 10 MG Oral Tablet simvastati n 10 mg tablet TAKE ONE TABLET BY MOUTH EVERY DAY simvastatin 10 mg tablet TAKE ONE TABLET BY MOUTH EVERY DAY completed simvastatin 10 MG Oral Table t JE[facility] ([facility]) lamotrigine 25 MG Oral Tablet lamotrigine 25 mg tablet lamot rigine 25 mg tablet completed lamotrigine 25 MG Oral Tablet [facility] ([facility]) 0.5 ML dulaglutide 1.5 MG/ML Auto-Inject or [Trulicity] Trulicity 0.75 mg/0.5 mL subcutaneous pen injector Trulicity 0.75 mg/0.5 mL subcutaneous pen injector completed 0.5 ML dulaglu tide 1.5 MG/ML Auto-Injector [Trulicity] [facility] ([facility]) buspirone hydrochloride 10 MG Oral Tablet buspirone 10 mg tablet buspirone 10 mg tablet completed buspirone hydr ochloride 10 MG Oral Tablet [place] ([facility]) Clonidine Hydrochloride 0.2 MG Oral Tablet clonidine H Cl 0.2 mg tablet clonidine HCl 0.2 mg tablet completed clonidine hydrochloride 0.2 MG Oral Tablet [place] ([facility]) cefdinir 300 MG Oral Capsule cefdinir 300 mg capsule cefdinir 30 0 mg capsule completed cefdinir 300 M G Oral Capsule [place] ([facility]) BD Ultra-Fine Short Pen Needle 31 gauge x 5/16" USE DIRECTED ONCE DAILY [id number] completed BD Ultr a-Fine Short Pen Needle 31 gauge x 5/16" [place] ([facility]) buspirone hydrochloride 15 MG Oral Table t buspirone 15 mg tablet TAKE ONE TABLET BY MOUTH THREE TIMES A DAY buspirone 15 mg tablet TAKE ONE TABLET B Y MOUTH THREE TIMES A DAY completed buspirone hydrochloride 15 MG Oral Tablet [place] ([facility]) Mirtazapine 15 MG Oral Tablet mirtazapine 15 mg tablet derrick zapine 15 mg tablet completed mirtazapine 15 MG Oral Tablet [place] ([facility]) OneTouch Verio test strips USE DIRECTED UP TO TWO TIMES A DAY [id number] completed OneTouch Verio test strip s [place] ([facility]) cefdinir 300 MG Oral Capsule cefdinir 300 mg capsule cefdinir 30 0 mg capsule completed cefdinir 300 M G Oral Capsule [place] ([facility]) sennosides 8.6 mg-docusate sodium 50 mg capsule Take 2 capsules by oral route at bedtime. [id number] 2 capsule(s) completed docusate sodium 50 MG / sennosides, NURSING HOME 8.6 MG Oral Capsule [place] ([facility]) Docusate Sodium 100 MG Oral Capsule [DOK] DOK 100 mg capsule DOK 100 mg capsule completed docusate sodiu m 100 MG Oral Capsule [DOK] [place] ([facility]) Amitriptyline Hydrochloride 75 MG Oral Tablet amitript yline 75 mg tablet amitriptyline 75 mg tablet completed amitriptyline hydrochloride 75 MG Oral Tablet [place] ([facility]) buspirone hydrochloride 10 MG Oral Tablet buspirone 10 mg tablet buspirone 10 mg tablet completed buspirone hydr ochloride 10 MG Oral Tablet [place] ([facility]) benztropine mesylate 0.5 MG Oral Tablet benztropine 0. 5 mg tablet benztropine 0.5 mg tablet completed benztrop ine mesylate 0.5 MG Oral Tablet [place] ([facility]) Propranolol Hydrochloride 20 MG Oral Tablet propranolo l 20 mg tablet propranolol 20 mg tablet completed propranolol hydrochloride 20 MG Oral Tablet [place] ([facility]) cefdinir 300 MG Oral Capsule cefdinir 300 mg capsule cefdinir 30 0 mg capsule completed cefdinir 300 M G Oral Capsule [place] ([facility]) Simvastatin 10 MG Oral Tablet simvastati n 10 mg tablet TAKE ONE TABLET BY MOUTH EVERY DAY simvastatin 10 mg tablet TAKE ONE TABLET BY MOUTH EVERY DAY completed simvastatin 10 MG Oral Table t [place] ([facility]) Famotidine 20 MG Oral Tablet famotidine 20 mg tablet famotidine 20 mg tablet completed famotidine 20 MG Oral Tablet [place] ([facility]) Triamcinolone Acetonide 1 MG/ML Topical Cream triamcinolone acetonide 0.1 % topical cream triamcinolone acetonide 0.1 % topical cream completed triamcinolone acetonide 1 MG/ML Topical Cream [place] ([facility]) Azithromycin 250 MG Oral Tablet azithromycin 250 mg ta blet azithromycin 250 mg tablet completed azithromycin 25 0 MG Oral Tablet [facility]) benzonatate 200 MG Oral Capsule benzonatate 200 mg cap kenya benzonatate 200 mg capsule completed benzonatate 20 0 MG Oral Capsule [place] ([facility]) buspirone hydrochloride 7.5 MG Oral Tablet buspirone 7 .5 mg tablet buspirone 7.5 mg tablet completed buspirone h ydrochloride 7.5 MG Oral Tablet [place] ([facility]) BD Ultra-Fine Short Pen Needle 31 gauge x 5/16" USE ONCE DAILY [id number] completed BD Ultra-Fine Short Pen Need le 31 gauge x 5/16" [facility]) Famotidine 20 MG Oral Tablet famotidine 20 mg tablet famotidine 20 mg tablet completed famotidine 20 MG Oral Tablet [place] ([facility]) sennosides, NURSING HOME 8.6 MG Oral Tablet [Senna-Time] senna 8.6 mg tablet senna 8.6 mg tablet completed sennosi azam, NURSING HOME 8.6 MG Oral Tablet [Senna-Time] [place] ([facility]) Azithromycin 250 MG Oral Tablet azithromycin 250 mg ta blet azithromycin 250 mg tablet completed azithromycin 25 0 MG Oral Tablet [place] ([facility]) Famotidine 20 MG Oral Tablet famotidine 20 mg tablet famotidine 20 mg tablet completed famotidine 20 MG Oral Tablet [place] ([facility]) Docusate Sodium 50 MG / sennosides, NURSING HOME 8.6 MG Oral Tablet sennosides 8.6 mg- docusate sodium 50 mg tablet Take 2 tablets by oral route at bedtime. sennosides 8.6 mg-docusate sodium 50 mg tablet Take 2 tablets by oral route at bedtime. 2 completed docusate sodiu m 50 MG / sennosides, NURSING HOME 8.6 MG Oral Tablet [place] ([facility]) ziprasidone 60 MG Oral Capsule ziprasidone 60 mg capsu le ziprasidone 60 mg capsule completed ziprasidone 60 MG Oral Capsule [facility]) Ofloxacin 3 MG/ML Otic Solution ofloxaci n 0.3 % ear drops INSTILL 10 DROPS INTO AFFECTED EAR S EVERY DAY ofloxacin 0.3 % ear drops INSTILL 10 VANDANA PS INTO AFFECTED EAR S EVERY DAY completed ofloxacin 3 MG/ML Otic Solution [place] ([facility]) Amitriptyline Hydrochloride 75 MG Oral Tablet amitript yline 75 mg tablet amitriptyline 75 mg tablet completed amitriptyline hydrochloride 75 MG Oral Tablet [place] ([facility]) buspirone hydrochloride 10 MG Oral Tablet buspirone 10 mg tablet buspirone 10 mg tablet completed buspirone hydr ochloride 10 MG Oral Tablet [place] ([facility]) benzonatate 200 MG Oral Capsule benzonatate 200 mg cap kenya benzonatate 200 mg capsule completed benzonatate 20 0 MG Oral Capsule [place] ([facility]) Azithromycin 250 MG Oral Tablet azithromycin 250 mg ta blet azithromycin 250 mg tablet completed azithromycin 25 0 MG Oral Tablet [facility] ([facility]) Clonazepam 0.5 MG Oral Tablet clonazepam 0.5 mg tablet TAKE ONE TABLET BY MOUTH NEEDED FOR 3 DAYS THEN ONE HALF TABLET UNTIL FINISHED MAXIMUM DAILY DOSE ONE TABLET clonazepam 0.5 mg tablet TAKE ONE TABLET BY MOUTH NEEDED FOR 3 DAYS THEN ONE HALF TABLET UNTIL FINISHED MAXIMUM DAILY DOSE ONE TABLET completed clonazepam 0.5 MG Or al Tablet [facility] ([facility]) Mirtazapine 15 MG Oral Tablet mirtazapine 15 mg tablet derrick zapine 15 mg tablet completed mirtazapine 15 MG Oral Tablet [facility] ([facility]) Amitriptyline Hydrochloride 50 MG Oral Tablet amitript yline 50 mg tablet amitriptyline 50 mg tablet completed amitriptyline hydrochloride 50 MG Oral Tablet [place] ([facility]) OneTouch Verio Flex Meter [id number] compl eted OneTouch Verio Flex Meter [facility] ([facility]) Docusate Sodium 50 MG / sennosides, NURSING HOME 8.6 MG Oral Tablet sennosides 8.6 mg- docusate sodium 50 mg tablet Take 2 tablets by oral route at bedtime. sennosides 8.6 mg-docusate sodium 50 mg tablet Take 2 tablets by oral route at bedtime. 2 completed docusate sodiu m 50 MG / sennosides, NURSING HOME 8.6 MG Oral Tablet [facility] ([facility]) cefdinir 300 MG Oral Capsule cefdinir 300 mg capsule cefdinir 30 0 mg capsule completed cefdinir 300 M G Oral Capsule [facility] ([facility]) Simvastatin 10 MG Oral Tablet simvastati n 10 mg tablet TAKE ONE TABLET BY MOUTH EVERY DAY simvastatin 10 mg tablet TAKE ONE TABLET BY MOUTH EVERY DAY completed simvastatin 10 MG Oral Table t [facility] ([facility]) Clonazepam 0.5 MG Disintegrating Oral Ta blet clonazepam 0.5 mg disintegrating tablet clonazepam 0.5 mg disintegrating tablet completed clonazepam 0.5 MG Disintegrating Oral Tablet [facility] ([facility]) Simvastatin 10 MG Oral Tablet simvastati n 10 mg tablet TAKE ONE TABLET BY MOUTH EVERY DAY simvastatin 10 mg tablet TAKE ONE TABLET BY MOUTH EVERY DAY completed simvastatin 10 MG Oral Table t [facility] ([facility]) Docusate Sodium 50 MG / sennosides, NURSING HOME 8.6 MG Oral Tablet [facility]ennos[facility] 8.6 mg- docusate sodium 50 mg tablet Take 2 tablets by oral route at bedtime. sennosides 8.6 mg-docusate sodium 50 mg tablet Take 2 tablets by oral route at bedtime. 2 completed docusate sodiu m 50 MG / sennosides, NURSING HOME 8.6 MG Oral Tablet [facility] ([facility]) Triamcinolone Acetonide 1 MG/ML Topical Cream triamcinolone acetonide 0.1 % topical cream triamcinolone acetonide 0.1 % topical cream completed triamcinolone acetonide 1 MG/ML Topical Cream [place] ([facility]) Mirtazapine 45 MG Oral Tablet mirtazapine 45 mg tablet derrick zapine 45 mg tablet completed mirtazapine 45 MG Oral Tablet [place] ([facility]) ziprasidone 60 MG Oral Capsule ziprasidone 60 mg capsu le ziprasidone 60 mg capsule completed ziprasidone 60 MG Oral Capsule [facility] ([facility]) benztropine mesylate 0.5 MG Oral Tablet benztropine 0. 5 mg tablet benztropine 0.5 mg tablet completed benztrop ine mesylate 0.5 MG Oral Tablet [place] ([facility]) Docusate Sodium 50 MG / sennosides, NURSING HOME 8.6 MG Oral Tablet [place] 8.6 mg- docusate sodium 50 mg tablet Take 2 tablets by oral route at bedtime. sennosides 8.6 mg-docusate sodium 50 mg tablet Take 2 tablets by oral route at bedtime. 2 completed docusate sodiu m 50 MG / sennosides, NURSING HOME 8.6 MG Oral Tablet [place] ([facility]) lamotrigine 25 MG Oral Tablet lamotrigine 25 mg tablet lamot rigine 25 mg tablet completed lamotrigine 25 MG Oral Tablet [place] ([facility]) Ketoconazole 20 MG/ML Medicated Shampoo ketoconazole 2 % shampoo ketoconazole 2 % shampoo completed ketoconazole 20 MG/ML Medicated Shampoo [facility] ([facility]) Mirtazapine 45 MG Oral Tablet mirtazapine 45 mg tablet derrick zapine 45 mg tablet completed mirtazapine 45 MG Oral Tablet [facility] ([facility]) Clonazepam 1 MG Oral Tablet clonazepam 1 mg tablet clonazepam 1 mg ta blet completed clonazepam 1 MG Oral Tablet [place] ([facility]) Clonidine Hydrochloride 0.2 MG Oral Tablet clonidine H Cl 0.2 mg tablet clonidine HCl 0.2 mg tablet completed clonidine hydrochloride 0.2 MG Oral Tablet [place] ([facility]) Docusate Sodium 50 MG / sennosides, NURSING HOME 8.6 MG Oral Tablet sennosides 8.6 mg- docusate sodium 50 mg tablet Take 2 tablets by oral route at bedtime. sennosides 8.6 mg-docusate sodium 50 mg tablet Take 2 tablets by oral route at bedtime. 2 completed docusate sodiu m 50 MG / sennosides, NURSING HOME 8.6 MG Oral Tablet [place] ([facility]) benzonatate 200 MG Oral Capsule benzonatate 200 mg cap kenya benzonatate 200 mg capsule completed benzonatate 20 0 MG Oral Capsule [place] ([facility]) Ketoconazole 20 MG/ML Medicated Shampoo ketoconazole 2 % shampoo ketoconazole 2 % shampoo completed ketoconazole 20 MG/ML Medicated Shampoo [place] ([facility]) Propranolol Hydrochloride 20 MG Oral Tablet propranolo l 20 mg tablet propranolol 20 mg tablet completed propranolol hydrochloride 20 MG Oral Tablet [place] ([facility]) Isopropyl Alcohol 0.7 ML/ML Medicated Pad Alcohol Prep Pads Alco hol Prep Pads completed isopropyl alco hol 0.7 ML/ML Medicated Pad [facility] ([facility]) sennosides, NURSING HOME 8.6 MG Oral Tablet [Senna-Time] senna 8.6 mg tablet senna 8.6 mg tablet completed sennosi azam, NURSING HOME 8.6 MG Oral Tablet [Senna-Time] [facility] ([facility]) cefdinir 300 MG Oral Capsule cefdinir 300 mg capsule cefdinir 30 0 mg capsule completed cefdinir 300 M G Oral Capsule [place] ([facility]) cefdinir 300 MG Oral Capsule cefdinir 300 mg capsule cefdinir 30 0 mg capsule completed cefdinir 300 M G Oral Capsule [facility] ([facility]) ziprasidone 60 MG Oral Capsule ziprasidone 60 mg capsu le ziprasidone 60 mg capsule completed ziprasidone 60 MG Oral Capsule [facility] ([facility]) ziprasidone 60 MG Oral Capsule ziprasidone 60 mg capsu le ziprasidone 60 mg capsule completed ziprasidone 60 MG Oral Capsule [place] ([facility]) Cephalexin 500 MG Oral Capsule cephalexin 500 mg capsu le cephalexin 500 mg capsule completed cephalexin 500 MG Oral Capsule [place] ([facility]) Clonidine Hydrochloride 0.2 MG Oral Tablet clonidine H Cl 0.2 mg tablet clonidine HCl 0.2 mg tablet completed clonidine hydrochloride 0.2 MG Oral Tablet [place] ([facility]) Docusate Sodium 100 MG Oral Capsule [DOK] DOK 100 mg capsule DOK 100 mg capsule completed docusate sodiu m 100 MG Oral Capsule [DOK] [place] ([facility]) lamotrigine 100 MG Oral Tablet lamotrigi ne 100 mg tablet TAKE ONE TABLET BY MOUTH ONCE DAILY lamotrigine 100 mg tablet TAKE ONE TABLET BY MOUTH ONC E DAILY completed lamotrigine 10 0 MG Oral Tablet [place] ([facility]) Clonazepam 0.5 MG Oral Tablet clonazepam 0.5 mg tablet TAKE ONE TABLET BY MOUTH NEEDED FOR 3 DAYS THEN ONE HALF TABLET UNTIL FINISHED MAXIMUM DAILY DOSE ONE TABLET clonazepam 0.5 mg tablet TAKE ONE TABLET BY MOUTH NEEDED FOR 3 DAYS THEN ONE HALF TABLET UNTIL FINISHED MAXIMUM DAILY DOSE ONE TABLET completed clonazepam 0.5 MG Or al Tablet [place] ([facility]) sennosides 8.6 mg-docusate sodium 50 mg capsule Take 2 capsules by oral route at bedtime. [id number] 2 capsule(s) completed docusate sodium 50 MG / sennosides, NURSING HOME 8.6 MG Oral Capsule [place] ([facility]) Trazodone Hydrochloride 50 MG Oral Table t trazodone 50 mg tablet TAKE ONE TABLET BY MOUTH EVERY DAY AT BEDTIME trazodone 50 mg tablet TAKE ONE TABLET B Y MOUTH EVERY DAY AT BEDTIME completed trazodone hydrochloride 50 MG Oral Tablet [place] ([facility]) Mirtazapine 15 MG Oral Tablet mirtazapine 15 mg tablet derrick zapine 15 mg tablet completed mirtazapine 15 MG Oral Tablet [facility] ([facility]) Amitriptyline Hydrochloride 75 MG Oral Tablet amitript yline 75 mg tablet amitriptyline 75 mg tablet completed amitriptyline hydrochloride 75 MG Oral Tablet [place] ([facility]) Clonidine Hydrochloride 0.2 MG Oral Tablet clonidine H Cl 0.2 mg tablet clonidine HCl 0.2 mg tablet completed clonidine hydrochloride 0.2 MG Oral Tablet [place] ([facility]) OneTouch Verio Flex Meter [id number] compl eted OneTouch Verio Flex Meter [place] ([facility]) 0.5 ML dulaglutide 1.5 MG/ML Auto-Inject or [Trulicity] Trulicity 0.75 mg/0.5 mL subcutaneous pen injector Trulicity 0.75 mg/0.5 mL subcutaneous pen injector completed 0.5 ML dulaglu tide 1.5 MG/ML Auto-Injector [Trulicity] [place] ([facility]) lamotrigine 25 MG Oral Tablet lamotrigine 25 mg tablet lamot rigine 25 mg tablet completed lamotrigine 25 MG Oral Tablet [place] ([facility]) OneTouch Delica Plus Lancet 33 gauge [id number] completed OneTouch Delica Plus Lancet 33 gauge [place] ([facility]) Prazosin 1 MG Oral Capsule prazosin 1 mg capsule prazosin 1 mg capsule completed prazosin 1 MG Oral Capsul e [place] ([facility]) Triamcinolone Acetonide 1 MG/ML Topical Cream triamcinolone acetonide 0.1 % topical cream triamcinolone acetonide 0.1 % topical cream completed triamcinolone acetonide 1 MG/ML Topical Cream [place] ([facility]) Clonazepam 1 MG Oral Tablet clonazepam 1 mg tablet clonazepam 1 mg ta blet completed clonazepam 1 MG Oral Tablet [place] ([facility]) Clindamycin 150 MG Oral Capsule clindamycin HCl 150 mg capsule clindamycin HCl 150 mg capsule completed clindam ycin 150 MG Oral Capsule [place] ([facility]) Simvastatin 10 MG Oral Tablet simvastati n 10 mg tablet TAKE ONE TABLET BY MOUTH EVERY DAY simvastatin 10 mg tablet TAKE ONE TABLET BY MOUTH EVERY DAY completed simvastatin 10 MG Oral Table t [facility] ([facility]) benzonatate 200 MG Oral Capsule benzonatate 200 mg cap kenya benzonatate 200 mg capsule completed benzonatate 20 0 MG Oral Capsule [place] ([facility]) Famotidine 20 MG Oral Tablet famotidine 20 mg tablet famotidine 20 mg tablet completed famotidine 20 MG Oral Tablet [facility] ([facility]) benzonatate 200 MG Oral Capsule benzonatate 200 mg cap [place] benzonatate 200 mg capsule completed benzonatate 20 0 MG Oral Capsule [place] ([facility]) buspirone hydrochloride 10 MG Oral Tablet buspirone 10 mg tablet buspirone 10 mg tablet completed buspirone hydr ochloride 10 MG Oral Tablet [place] ([facility]) Simvastatin 10 MG Oral Tablet simvastati n 10 mg tablet TAKE ONE TABLET BY MOUTH EVERY DAY simvastatin 10 mg tablet TAKE ONE TABLET BY MOUTH EVERY DAY completed simvastatin 10 MG Oral Table t [place] ([facility]) OneTouch Verio Flex Meter [id number] compl eted OneTouch Verio Flex Meter [place] ([facility]) 0.5 ML dulaglutide 1.5 MG/ML Auto-Inject or [Trulicity] Trulicity 0.75 mg/0.5 mL subcutaneous pen injector Trulicity 0.75 mg/0.5 mL subcutaneous pen injector completed 0.5 ML dulaglu tide 1.5 MG/ML Auto-Injector [Trulicity] [place] ([facility]) Prazosin 1 MG Oral Capsule prazosin 1 mg capsule prazosin 1 mg capsule completed prazosin 1 MG Oral Capsul e [place] ([facility]) Insurance Providers Payer name Policy type / Coverage type Policy ID Covered constitution party ID Covered constitution party's relationship to talamantes Policy [place] Plan Information [facility] PLUS [employer]EN COMMUNITY PLAN [id number] SELF [id number] [employer] DEVEN [id number] SELF [id number] HMO BLUE [id number] SP [id number] BLUE CROSS VANESSA PLAN [id number] SP [id number] [facility] COMMUNITY PLAN MCDO [id number] SP [id number] Hmo Blue Option/Medicaid Health Maintenance Organization (HMO) V [id number] Self [id number] Hmo Blue Option/Medicaid Health Maintenance Organization (HMO) V [id number] Self [id number] Hmo Blue Option/Medicaid Health Maintenance Organization (HMO) V [id number] Self [id number] [facility] Medigap Part B [id number] Self [id number] Medicaid S [id number] S [id number] Managed Care BCBS O [id number] S [id number] Medicaid S [id number] S [id number] Medicaid S [id number] S [id number] [facility] Essential Plan P [id number] S [id number] Managed Care - Community Plan [facility] P [id number] S [id number] Medicaid S [id number] S [id number] Managed Care - Community Plan [facility] P [id number] S [id number] Medicaid S [id number] S [id number] Managed Care - Community Plan [facility] P [id number] S [id number] Managed Care - [facility] Community Plan P [id number] S [id number] Medicaid S [id number] S [id number] Managed Care - [facility] Community Plan P [id number] S [id number] Medicaid S [id number] S [id number] BCBS Federal O [id number] S [id number] [facility]CA[facility]) P UNAVAILABLE [id number] S UNAVAILABLE EXCELLUS BCBS P [id number] S [id number] Self Pay O [id number] S [id number] [facility] [id number] SP [id number] UNHC COMMUNITY PLAN MCDO [id number] SP [id number] [facility](MCAID) O [id number] S [id number] [facility] Health Maintenance Organization (HMO) [id number] Self [id number] MEDICAID [id number] SP [id number] Managed Care - Community Plan [facility] P [id number] S [id number] [facility] Health Maintenance Organization (HMO) [id number] Self [id number] [facility] Health Maintenance Organization ([facility]) [id number] Self [id number] MEDICAID [id number] SP [id number] [employer] COMMUNITY PLAN MCDO [id number] SP [id number] [facility] Comm Plan Medicaid F [id number] SELF [id number] Managed Care - Community Plan [facility] P [id number] S [id number] UNHC AMERICHOICE XIX -HMO [id number] 18 [id number] [facility](MCAID) O [id number] S [id number] MEDICAID [id number] SP [id number] [facility] HMO/[facility] FAMILY NO CO PAY [id number] P [id number] SELFPAY P HMO BLUE/MEDICAID [id number] P [id number] MEDICAID [id number] SP [id number] UN COMMUNITY PLAN [facility] [id number] SP [id number] Problems, Conditions, and Diagnoses Code Display Name Description Problem Type Effective Dates Data Source(s) F17.200 Nicotine dependence, unspecified, uncomp licated Tobacco Use Disorder, Moderate Condition 07/02/2021 12:00:00 AM EDT [facility] ([facility]) 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 Condition 07/02/2021 12:00:00 AM EDT [facility] ([facility]) 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 Somatic Symptom D isorder Condition 07/02/2021 12:00:00 AM EDT [facility] ([facility]) F31.63 Bipolar disorder, current ep isode mixed, severe, without psychotic features Bipolar disord, crnt epsd mixed, severe, w/o psych features Condition 07/02/2021 12:00:00 AM EDT [facility] ([facility]) [id number] Primary erectile dysfunction Primary Erectile Dysfunct ion Problem 06/12/2021 12:00:00 AM EDT [facility] ([facility]) 075495550 Primary erectile dysfunction Primary Erectile Dysfunct ion Problem 06/12/2021 12:00:00 AM EDT [facility] ([facility]) 56047749 Acute otitis externa Acute Otitis Externa Problem 05/02/2021 12:00:00 AM EDT [facility] ([facility]) 69766786 Acute otitis externa Acute Otitis Externa Problem 05/02/2021 12:00:00 AM EDT [facility] ([facility]) 29015977 Acute otitis externa Acute Otitis Externa Problem 05/02/2021 12:00:00 AM EDT [facility] ([facility]) [id number] Chest pain Chest Pain Problem 03/22/2021 12:00:00 AM ED T [facility] ([facility]) [id number] Tobacco user Tobacco User Problem 03/22/2021 12:00:00 A M EDT [facility] ([facility]) 38658088 Chest pain Chest Pain Problem 03/22/2021 12:00:00 AM ED T [facility] ([facility]) [id number] Tobacco user Tobacco User Problem 03/22/2021 12:00:00 A M EDT [facility] ([facility]) 62661537 Chest pain Chest Pain Problem 03/22/2021 12:00:00 AM ED T [facility] ([facility]) [id number] Tobacco user Tobacco User Problem 03/22/2021 12:00:00 A M EDT [facility] ([facility]) [id number] Chest pain Chest Pain Problem 03/22/2021 12:00:00 AM ED T [facility] ([facility]) 760454535 Tobacco user Tobacco User Problem 03/22/2021 12:00:00 A M EDT [facility] ([facility]) 51720780 Chest pain Chest Pain Problem 03/22/2021 12:00:00 AM ED T [facility] ([facility]) [id number] Tobacco user Tobacco User Problem 03/22/2021 12:00:00 A M EDT [facility] ([facility]) 98135613 Chest pain Chest Pain Problem 03/22/2021 12:00:00 AM ED T [facility] ([facility]) [id number] Tobacco user Tobacco User Problem 03/22/2021 12:00:00 A M EDT [facility] ([facility]) F17.200 Nicotine dependence, unspecified, uncomp licated Tobacco Use Disorder, Moderate Condition 12/07/2020 12:00:00 AM EST [facility] ([facility]) 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 Condition 12/07/2020 12:00:00 AM EST [facility] ([facility]) E11.9 Type 2 diabetes mellitus Type 2 [...] 12:00:00 AM EST [facility] ([facility] [id number] Bilateral earache Bilateral Earache Problem 10/03 12:00:00 AM EST [facility] ([facility]) [id number] Bilateral earache Bilateral Earache Problem 10/03 12:00:00 AM EST [facility] ([facility]) [id number] Bilateral earache Bilateral Earache Problem 10/03 12:00:00 AM EST [facility] ([facility]) 134343743 Bilateral earache Bilateral Earache Problem 10/03 12:00:00 AM EST JEFF ([facility]) [id number] Bilateral earache Bilateral Earache Problem 10/03 12:00:00 AM EST JEFF ([facility]) [id number] Bilateral earache Bilateral Earache Problem 10/03 12:00:00 AM EST JEFF ([facility]) [id number] Bilateral earache Bilateral Earache Problem 10/03 12:00:00 AM EST JEFF ([facility]) [id number] Bilateral earache Bilateral Earache Problem 10/03 12:00:00 AM EST JEFF ([facility]) [id number] Bilateral earache Bilateral Earache Problem 10/03 12:00:00 AM EST JEFF ([facility]) [id number] Bilateral earache Bilateral Earache Problem 10/03 12:00:00 AM EST JEFF ([facility]) [id number] Bilateral earache Bilateral Earache Problem 10/03 12:00:00 AM EST JEFF ([facility]) [id number] Bilateral earache Bilateral Earache Problem 10/03 12:00:00 AM EST JEFF ([facility]) [id number] Bilateral earache Bilateral Earache Problem 10/03 12:00:00 AM EST JEFF ([facility]) [id number] Bilateral earache Bilateral Earache Problem 10/03 12:00:00 AM EST JEFF ([facility]) [id number] Paronychia of toe Paronychia of Toe Problem 09/01 12:00:00 AM EST JEFF ([facility]) [id number] Paronychia of toe Paronychia of Toe Problem 09/01 12:00:00 AM EST JEFF ([facility]) [id number] Paronychia of toe Paronychia of Toe Problem 09/01 12:00:00 AM EST JEFF ([facility]) [id number] Paronychia of toe Paronychia of Toe Problem 09/01 12:00:00 AM EST JEFF ([facility]) [id number] Paronychia of toe Paronychia of Toe Problem 09/01 12:00:00 AM EST JEFF ([facility]) [id number] Paronychia of toe Paronychia of Toe Problem 09/01 12:00:00 AM EST JEFF ([facility]) [id number] Paronychia of toe Paronychia of Toe Problem 09/01 12:00:00 AM EST JEFF ([facility]) [id number] Paronychia of toe Paronychia of Toe Problem 09/01 12:00:00 AM EST JEFF ([facility]) [id number] Paronychia of toe Paronychia of Toe Problem 09/01 12:00:00 AM EST JEFF ([facility]) [id number] Paronychia of toe Paronychia of Toe Problem 09/01 12:00:00 AM EST JEFF ([facility]) [id number] Paronychia of toe Paronychia of Toe Problem 09/01 12:00:00 AM EST JEFF ([facility]) [id number] Paronychia of toe Paronychia of Toe Problem 09/01 12:00:00 AM EST JEFF ([facility]) [id number] Paronychia of toe Paronychia of Toe Problem 09/01 12:00:00 AM EST JEFF ([facility]) [id number] Paronychia of toe Paronychia of Toe Problem 09/01 12:00:00 AM EST JEFF ([facility]) [id number] Paronychia of toe Paronychia of Toe Problem 09/01 12:00:00 AM EST JEFF ([facility]) F17.219 Nicotine dependence, cigaret mary, with unspecified nicotine-induced disorders Nicotine dependence, cigarettes, wunsp disorders Condition 08/17/2020 12:00:00 AM EST [facility] ([facility]) [id number] Type 2 diabetes mellitus without complic ation Type 2 Diabetes Mellitus without Complication Problem 08/10/2020 12:00:00 AM EDT JEFF ([facility]) [id number] Type 2 diabetes mellitus without complic ation Type 2 Diabetes Mellitus without Complication Problem 08/10/2020 12:00:00 AM EDT JEFF ([facility]) [id number] Type 2 diabetes mellitus without complic ation Type 2 Diabetes Mellitus without Complication Problem 08/10/2020 12:00:00 AM EDT JEFF ([facility]) [id number] Type 2 diabetes mellitus without complic ation Type 2 Diabetes Mellitus without Complication Problem 08/10/2020 12:00:00 AM EDT JEFF ([facility]) [id number] Type 2 diabetes mellitus without complic ation Type 2 Diabetes Mellitus without Complication Problem 08/10/2020 12:00:00 AM EDT JEFF ([facility]) [id number] Type 2 diabetes mellitus without complic ation Type 2 Diabetes Mellitus without Complication Problem 08/10/2020 12:00:00 AM EDT JEFF ([facility]) [id number] Type 2 diabetes mellitus without complic ation Type 2 Diabetes Mellitus without Complication Problem 08/10/2020 12:00:00 AM EDT JEFF ([facility]) [id number] Type 2 diabetes mellitus without complic ation Type 2 Diabetes Mellitus without Complication Problem 08/10/2020 12:00:00 AM EDT JEFF ([facility]) [id number] Type 2 diabetes mellitus without complic ation Type 2 Diabetes Mellitus without Complication Problem 08/10/2020 12:00:00 AM EDT JEFF ([facility]) [id number] Type 2 diabetes mellitus without complic ation Type 2 Diabetes Mellitus without Complication Problem 08/10/2020 12:00:00 AM EDT JEFF ([facility]) [id number] Type 2 diabetes mellitus without complic ation Type 2 Diabetes Mellitus without Complication Problem 08/10/2020 12:00:00 AM EDT JEFF ([facility]) [id number] Type 2 diabetes mellitus without complic ation Type 2 Diabetes Mellitus without Complication Problem 08/10/2020 12:00:00 AM EDT JEFF ([facility]) [id number] Type 2 diabetes mellitus without complic ation Type 2 Diabetes Mellitus without Complication Problem 08/10/2020 12:00:00 AM EDT JEFF ([facility]) [id number] Type 2 diabetes mellitus without complic ation Type 2 Diabetes Mellitus without Complication Problem 08/10/2020 12:00:00 AM EDT JEFF ([facility]) [id number] Type 2 diabetes mellitus without complic ation Type 2 Diabetes Mellitus without Complication Problem 08/10/2020 12:00:00 AM EDT JEFF ([facility]) [id number] Type 2 diabetes mellitus without complic ation Type 2 Diabetes Mellitus without Complication Problem 08/10/2020 12:00:00 AM EDT JEFF ([facility]) [id number] Type 2 diabetes mellitus without complic ation Type 2 Diabetes Mellitus without Complication Problem 08/10/2020 12:00:00 AM EDT JEFF ([facility]) [id number] Fitting procedure Fitting Procedure Problem 07/27 05:54:54 PM EDT JEFF ([facility]) [id number] Fitting procedure Fitting Procedure Problem 07/27 05:54:54 PM EDT JEFF ([facility]) [id number] Fitting procedure Fitting Procedure Problem 07/27 05:54:54 PM EDT JEFF ([facility]) [id number] Fitting procedure Fitting Procedure Problem 07/27 05:54:54 PM EDT JEFF ([facility]) [id number] Fitting procedure Fitting Procedure Problem 07/27 05:54:54 PM EDT JEFF ([facility]) [id number] Fitting procedure Fitting Procedure Problem 07/27 05:54:54 PM EDT JEFF ([facility]) [id number] Fitting procedure Fitting Procedure Problem 07/27 05:54:54 PM EDT JEFF ([facility]) [id number] Fitting procedure Fitting Procedure Problem 07/27 05:54:54 PM EDT JEFF ([facility]) [id number] Fitting procedure Fitting Procedure Problem 07/27 05:54:54 PM EDT JEFF ([facility]) [id number] Fitting procedure Fitting Procedure Problem 07/27 05:54:54 PM EDT JEFF ([facility]) [id number] Fitting procedure Fitting Procedure Problem 07/27 05:54:54 PM EDT JEFF ([facility]) [id number] Fitting procedure Fitting Procedure Problem 07/27 05:54:54 PM EDT JEFF ([facility]) [id number] Fitting procedure Fitting Procedure Problem 07/27 05:54:54 PM EDT JEFF ([facility]) [id number] Fitting procedure Fitting Procedure Problem 07/27 05:54:54 PM EDT JEFF ([facility]) [id number] Fitting procedure Fitting Procedure Problem 07/27 05:54:54 PM EDT JEFF ([facility]) [id number] Fitting procedure Fitting Procedure Problem 07/27 05:54:54 PM EDT JEFF ([facility]) [id number] Fitting procedure Fitting Procedure Problem 07/27 05:54:54 PM EDT JEFF ([facility]) [id number] Finding of esophagus Finding of Esophagus Problem 07/27/2020 05:54:53 PM EDT JEFF ([facility]) [id number] SNOMED CT Concept SNOMED CT Concept Problem 07/27 05:54:53 PM EDT JEFF ([facility]) [id number] Asthma Asthma Problem 07/27/2020 05:54:53 PM ED T JEFF ([facility]) [id number] Depressive disorder Depressive Disorder Problem 1 05:54:53 PM EDT JEFF ([facility]) [id number] Viral hepatitis C Viral Hepatitis C Problem 07/27/2020 05:54:53 PM EDT JEFF ([facility]) [id number] Finding of esophagus Finding of Esophagus Problem 07/27/2020 05:54:53 PM EDT JEFF ([facility]) [id number] SNOMED CT Concept SNOMED CT Concept Problem 07/27 05:54:53 PM EDT JEFF ([facility]) [id number] Asthma Asthma Problem 07/27/2020 05:54:53 PM ED T JEFF ([facility]) [id number] Depressive disorder Depressive Disorder Problem 1 05:54:53 PM EDT JEFF ([facility]) [id number] Viral hepatitis C Viral Hepatitis C Problem 07/27/2020 05:54:53 PM EDT JEFF ([facility]) [id number] Finding of esophagus Finding of Esophagus Problem 07/27/2020 05:54:53 PM EDT JEFF ([facility]) [id number] SNOMED CT Concept SNOMED CT Concept Problem 07/27 05:54:53 PM EDT JEFF ([facility]) 777046281 Asthma Asthma Problem 07/27/2020 05:54:53 PM ED T JEFF ([facility]) [id number] Depressive disorder Depressive Disorder Problem 1 05:54:53 PM EDT JEFF ([facility]) [id number] Viral hepatitis C Viral Hepatitis C Problem 07/27/2020 05:54:53 PM EDT JEFF ([facility]) [id number] Finding of esophagus Finding of Esophagus Problem 07/27/2020 05:54:53 PM EDT JEFF ([facility]) [id number] SNOMED CT Concept SNOMED CT Concept Problem 07/27 05:54:53 PM EDT JEFF ([facility]) [id number] Asthma Asthma Problem 07/27/2020 05:54:53 PM ED T JEFF ([facility]) [id number] Depressive disorder Depressive Disorder Problem 1 05:54:53 PM EDT JEFF ([facility]) [id number] Viral hepatitis C Viral Hepatitis C Problem 07/27/2020 05:54:53 PM EDT JEFF ([facility]) [id number] Finding of esophagus Finding of Esophagus Problem 07/27/2020 05:54:53 PM EDT JEFF ([facility]) [id number] SNOMED CT Concept SNOMED CT Concept Problem 07/27 05:54:53 PM EDT JEFF ([facility]) [id number] Asthma Asthma Problem 07/27/2020 05:54:53 PM ED T JEFF ([facility]) [id number] Depressive disorder Depressive Disorder Problem 1 05:54:53 PM EDT JEFF ([facility]) [id number] Viral hepatitis C Viral Hepatitis C Problem 07/27/2020 05:54:53 PM EDT JEFF ([facility]) [id number] Finding of esophagus Finding of Esophagus Problem 07/27/2020 05:54:53 PM EDT JEFF ([facility]) [id number] SNOMED CT Concept SNOMED CT Concept Problem 07/27 05:54:53 PM EDT JEFF ([facility]) [id number] Asthma Asthma Problem 07/27/2020 05:54:53 PM ED T JEFF ([facility]) [id number] Depressive disorder Depressive Disorder Problem 1 05:54:53 PM EDT JEFF ([facility]) [id number] Viral hepatitis C Viral Hepatitis C Problem 07/27/2020 05:54:53 PM EDT JEFF ([facility]) [id number] Finding of esophagus Finding of Esophagus Problem 07/27/2020 05:54:53 PM EDT JEFF ([facility]) [id number] SNOMED CT Concept SNOMED CT Concept Problem 07/27 05:54:53 PM EDT JEFF ([facility]) [id number] Asthma Asthma Problem 07/27/2020 05:54:53 PM ED T JEFF ([facility]) [id number] Depressive disorder Depressive Disorder Problem 1 05:54:53 PM EDT JEFF ([facility]) [id number] Viral hepatitis C Viral Hepatitis C Problem 07/27/2020 05:54:53 PM EDT JEFF ([facility]) [id number] Finding of esophagus Finding of Esophagus Problem 07/27/2020 05:54:53 PM EDT JEFF ([facility]) [id number] SNOMED CT Concept SNOMED CT Concept Problem 07/27 05:54:53 PM EDT JEFF ([facility]) [id number] Asthma Asthma Problem 07/27/2020 05:54:53 PM ED T JEFF ([facility]) [id number] Depressive disorder Depressive Disorder Problem 1 05:54:53 PM EDT JEFF ([facility]) [id number] Viral hepatitis C Viral Hepatitis C Problem 07/27/2020 05:54:53 PM EDT JEFF ([facility]) [id number] Finding of esophagus Finding of Esophagus Problem 07/27/2020 05:54:53 PM EDT JEFF ([facility]) [id number] SNOMED CT Concept SNOMED CT Concept Problem 07/27 05:54:53 PM EDT JEFF ([facility]) [id number] Asthma Asthma Problem 07/27/2020 05:54:53 PM ED T JEFF ([facility]) [id number] Depressive disorder Depressive Disorder Problem 1 05:54:53 PM EDT JEFF ([facility]) [id number] Viral hepatitis C Viral Hepatitis C Problem 07/27/2020 05:54:53 PM EDT JEFF ([facility]) [id number] Finding of esophagus Finding of Esophagus Problem 07/27/2020 05:54:53 PM EDT JEFF ([facility]) [id number] SNOMED CT Concept SNOMED CT Concept Problem 07/27 05:54:53 PM EDT JEFF ([facility]) [id number] Asthma Asthma Problem 07/27/2020 05:54:53 PM ED T JEFF ([facility]) [id number] Depressive disorder Depressive Disorder Problem 1 05:54:53 PM EDT JEFF ([facility]) [id number] Viral hepatitis C Viral Hepatitis C Problem 07/27/2020 05:54:53 PM EDT JEFF ([facility]) [id number] Finding of esophagus Finding of Esophagus Problem 07/27/2020 05:54:53 PM EDT JEFF ([facility]) [id number] SNOMED CT Concept SNOMED CT Concept Problem 07/27 05:54:53 PM EDT JEFF ([facility]) [id number] Asthma Asthma Problem 07/27/2020 05:54:53 PM ED T JEFF ([facility]) [id number] Depressive disorder Depressive Disorder Problem 1 05:54:53 PM EDT JEFF ([facility]) [id number] Viral hepatitis C Viral Hepatitis C Problem 07/27/2020 05:54:53 PM EDT JEFF ([facility]) [id number] Finding of esophagus Finding of Esophagus Problem 07/27/2020 05:54:53 PM EDT JEFF ([facility]) [id number] SNOMED CT Concept SNOMED CT Concept Problem 07/27 05:54:53 PM EDT JEFF ([facility]) [id number] Asthma Asthma Problem 07/27/2020 05:54:53 PM ED T JEFF ([facility]) [id number] Depressive disorder Depressive Disorder Problem 1 05:54:53 PM EDT JEFF ([facility]) [id number] Viral hepatitis C Viral Hepatitis C Problem 07/27/2020 05:54:53 PM EDT JEFF ([facility]) [id number] Finding of esophagus Finding of Esophagus Problem 07/27/2020 05:54:53 PM EDT JEFF ([facility]) [id number] SNOMED CT Concept SNOMED CT Concept Problem 07/27 05:54:53 PM EDT JEFF ([facility]) [id number] Asthma Asthma Problem 07/27/2020 05:54:53 PM ED T JEFF ([facility]) [id number] Depressive disorder Depressive Disorder Problem 1 05:54:53 PM EDT JEFF ([facility]) [id number] Viral hepatitis C Viral Hepatitis C Problem 07/27/2020 05:54:53 PM EDT JEFF ([facility]) [id number] Finding of esophagus Finding of Esophagus Problem 07/27/2020 05:54:53 PM EDT JEFF ([facility]) [id number] SNOMED CT Concept SNOMED CT Concept Problem 07/27 05:54:53 PM EDT JEFF ([facility]) 387851579 Asthma Asthma Problem 07/27/2020 05:54:53 PM ED T JEFF ([facility]) [id number] Depressive disorder Depressive Disorder Problem 1 05:54:53 PM EDT JEFF ([facility]) [id number] Viral hepatitis C Viral Hepatitis C Problem 07/27/2020 05:54:53 PM EDT JEFF ([facility]) [id number] Viral hepatitis C Viral Hepatitis C Problem 07/27/2020 05:54:53 PM EDT JEFF ([facility]) 791872846 Finding of esophagus Finding of Esophagus Problem 07/27/2020 05:54:53 PM EDT JEFF ([facility]) [id number] SNOMED CT Concept SNOMED CT Concept Problem 07/27 05:54:53 PM EDT JEFF ([facility]) 307483853 Asthma Asthma Problem 07/27/2020 05:54:53 PM ED T JEFF ([facility]) [id number] Depressive disorder Depressive Disorder Problem 1 05:54:53 PM EDT JEFF ([facility]) [id number] Viral hepatitis C Viral Hepatitis C Problem 07/27/2020 05:54:53 PM EDT JEFF ([facility]) [id number] Finding of esophagus Finding of Esophagus Problem 07/27/2020 05:54:53 PM EDT JEFF ([facility]) 306373728 SNOMED CT Concept SNOMED CT Concept Problem 07/27 05:54:53 PM EDT JEFF ([facility]) 882690428 Asthma Asthma Problem 07/27/2020 05:54:53 PM ED T JEFF ([facility]) [id number] Depressive disorder Depressive Disorder Problem 1 05:54:53 PM EDT JEFF ([facility]) [id number] Viral hepatitis C Viral Hepatitis C Problem 07/27/2020 05:54:53 PM EDT JEFF ([facility]) 452916916 Finding of esophagus Finding of Esophagus Problem 07/27/2020 05:54:53 PM EDT JEFF ([facility]) [id number] SNOMED CT Concept SNOMED CT Concept Problem 07/27 05:54:53 PM EDT JEFF ([facility]) 657022075 Asthma Asthma Problem 07/27/2020 05:54:53 PM ED T JEFF ([facility]) 23448214 Depressive disorder Depressive Disorder Problem 1 05:54:53 PM EDT JEFF ([facility]) 312863824 Clinical finding Clinical Finding Problem 019 12:00:00 AM EST - 03/02/2021 12:00:00 AM EDT JEFF ([facility]) [id number] Clinical finding Clinical Finding Problem 019 12:00:00 AM EST - 03/02/2021 12:00:00 AM EDT JEFF ([facility]) [id number] Clinical finding Clinical Finding Problem 019 12:00:00 AM EST - 03/02/2021 12:00:00 AM EDT JEFF ([facility]) [id number] Clinical finding Clinical Finding Problem 019 12:00:00 AM EST - 03/02/2021 12:00:00 AM EDT JEFF ([facility]) [id number] Clinical finding Clinical Finding Problem 019 12:00:00 AM EST - 03/02/2021 12:00:00 AM EDT JEFF ([facility]) [id number] Clinical finding Clinical Finding Problem 019 12:00:00 AM EST - 03/02/2021 12:00:00 AM EDT JEFF ([facility]) [id number] Clinical finding Clinical Finding Problem 019 12:00:00 AM EST - 03/02/2021 12:00:00 AM EDT JEFF ([facility]) [id number] Acute maxillary sinusitis Acute Maxillary Sinusitis Pr oblem 04/28/2018 12:00:00 AM EDT - 03/02/2021 12:00:00 AM EDT JEFF ([facility]) [id number] Acute maxillary sinusitis Acute Maxillary Sinusitis Pr oblem 04/28/2018 12:00:00 AM EDT - 03/02/2021 12:00:00 AM EDT JEFF ([facility]) [id number] Acute maxillary sinusitis Acute Maxillary Sinusitis Pr oblem 04/28/2018 12:00:00 AM EDT - 03/02/2021 12:00:00 AM EDT JEFF ([facility]) [id number] Acute maxillary sinusitis Acute Maxillary Sinusitis Pr oblem 04/28/2018 12:00:00 AM EDT - 03/02/2021 12:00:00 AM EDT JEFF ([facility]) [id number] Acute maxillary sinusitis Acute Maxillary Sinusitis Pr oblem 04/28/2018 12:00:00 AM EDT - 03/02/2021 12:00:00 AM EDT JEFF ([facility]) [id number] Acute maxillary sinusitis Acute Maxillary Sinusitis Pr oblem 04/28/2018 12:00:00 AM EDT - 03/02/2021 12:00:00 AM EDT JEFF ([facility]) [id number] Acute maxillary sinusitis Acute Maxillary Sinusitis Pr oblem 04/28/2018 12:00:00 AM EDT - 03/02/2021 12:00:00 AM EDT JEFF ([facility]) [id number] Abdominal pain Abdominal Pain Problem 06/15/2015 12:00:00 AM EDT - 03/02/2021 12:00:00 AM EDT JEFF ([facility]) [id number] Abdominal pain Abdominal Pain Problem 06/15/2015 12:00:00 AM EDT - 03/02/2021 12:00:00 AM EDT JEFF ([facility]) [id number] Abdominal pain Abdominal Pain Problem 06/15/2015 12:00:00 AM EDT - 03/02/2021 12:00:00 AM EDT JEFF ([facility]) [id number] Abdominal pain Abdominal Pain Problem 06/15/2015 12:00:00 AM EDT - 03/02/2021 12:00:00 AM EDT JEFF ([facility]) [id number] Abdominal pain Abdominal Pain Problem 06/15/2015 12:00:00 AM EDT - 03/02/2021 12:00:00 AM EDT JEFF ([facility]) [id number] Abdominal pain Abdominal Pain Problem 06/15/2015 12:00:00 AM EDT - 03/02/2021 12:00:00 AM EDT JEFF ([facility]) [id number] Abdominal pain Abdominal Pain Problem 06/15/2015 12:00:00 AM EDT - 03/02/2021 12:00:00 AM EDT JEFF ([facility]) [id number] Pain Pain Problem 09/14/2012 12:0 0:00 AM EST - 03/02/2021 12:00:00 AM EDT JEFF ([facility]) [id number] Clinical finding Clinical Finding Problem 012 12:00:00 AM EST - 03/02/2021 12:00:00 AM EDT JEFF ([facility]) 517562900 Chronic constipation Chronic Constipation Problem 09/14/2012 12:00:00 AM EST - 03/02/2021 12:00:00 AM EDT JEFF ([facility]) [id number] Clinical finding Clinical Finding Problem 012 12:00:00 AM EST - 03/02/2021 12:00:00 AM EDT JEFF ([facility]) 651760231 Chronic constipation Chronic Constipation Problem 09/14/2012 12:00:00 AM EST - 03/02/2021 12:00:00 AM EDT JEFF ([facility]) [id number] Clinical finding Clinical Finding Problem 012 12:00:00 AM EST - 03/02/2021 12:00:00 AM EDT JEFF ([facility]) 121414860 Chronic constipation Chronic Constipation Problem 09/14/2012 12:00:00 AM EST - 03/02/2021 12:00:00 AM EDT JEFF ([facility]) 944642158 Chronic constipation Chronic Constipation Problem 09/14/2012 12:00:00 AM EST - 03/02/2021 12:00:00 AM EDT JEFF ([facility]) 782368404 Clinical finding Clinical Finding Problem 012 12:00:00 AM EST - 03/02/2021 12:00:00 AM EDT JEFF ([facility]) 394286139 Chronic constipation Chronic Constipation Problem 09/14/2012 12:00:00 AM EST - 03/02/2021 12:00:00 AM EDT JEFF ([facility]) [id number] Clinical finding Clinical Finding Problem 012 12:00:00 AM EST - 03/02/2021 12:00:00 AM EDT JEFF ([facility]) 310548750 Chronic constipation Chronic Constipation Problem 09/14/2012 12:00:00 AM EST - 03/02/2021 12:00:00 AM EDT JEFF ([facility]) [id number] Clinical finding Clinical Finding Problem 012 12:00:00 AM EST - 03/02/2021 12:00:00 AM EDT JEFF ([facility]) 014890297 Chronic constipation Chronic Constipation Problem 09/14/2012 12:00:00 AM EST - 03/02/2021 12:00:00 AM EDT JEFF ([facility]) Surgeries/Procedures Procedure Description Date Indications Data Source(s) Extended Individual Psychotherapy - 45 min 07/02/2021 12:00:00 AM EDT - 07/02/2021 12:00:00 AM EDT [facility] ([facility]) Extended Individual Psychotherapy - 45 min 12:00:00 AM EDT [facility] ([facility]) TEMPMHCTelemed 30" Psychotherapy 021 12:00:00 AM EDT - 06/14/2021 12:00:00 AM EDT [facility] ([facility]) TEMPMHCTelemed 30" Psychotherapy 06/14/2021 12:00:00 A M EDT [facility] ([facility]) Brief Individual Psychotherapy - 30 min 05/31/2021 12:00:00 AM EDT - 05/31/2021 12:00:00 AM EDT [facility] ([facility]) Brief Individual Psychotherapy - 30 min 05/31/2021 12: 00:00 AM EDT [facility] ([facility]) MHCTelemed E/M Lvl 5--Est pt 05/30/2021 12:00:00 AM EDT - 05/30/2021 12:00:00 AM EDT [facility] ([facility]) MHCTelemed E/M Lvl 5--Est pt 05/30/2021 12:00:00 AM ED T [facility] ([facility]) [id number]"Psychotherapy 12:00:00 AM EDT - 05/01/2021 12:00:00 AM EDT [facility] ([facility]) [id number]"Psychotherapy 05/01/2021 12:00:00 AM EDT [facility] ([facility]) Extended Individual Psychotherapy - 45 min 03/26/2021 12:00:00 AM EDT - 03/26/2021 12:00:00 AM EDT [facility] ([facility]) Extended Individual Psychotherapy - 45 min 12:00:00 AM EDT [facility] ([facility]) INCISION & DRAINAGE ABSCESS SIMPLE/SINGLE 03/06/2021 1 2:00:00 AM EDT [facility] ([facility] OFFICE OUTPATIENT VISIT 15 MINUTES 03/06/2021 12:00:00 AM EDT [facility] ([facility] Extended Individual Psychotherapy - 45 min 02/26/2021 12:00:00 AM EDT - 02/26/2021 12:00:00 AM EDT [facility] ([facility]) Extended Individual Psychotherapy - 45 min 12:00:00 AM EDT [facility] ([facility]) Brief Individual Psychotherapy - 30 min 02/07/2021 12:00:00 AM EDT - 02/07/2021 12:00:00 AM EDT [facility] ([facility]) Brief Individual Psychotherapy - 30 min 02/07/2021 12: 00:00 AM EDT [facility] ([facility]) [id number]"Psychotherapy 12:00:00 AM EDT - 01/18/2021 12:00:00 AM EDT [facility] ([facility]) [id number]"Psychotherapy 01/18/2021 12:00:00 AM EDT [facility] ([facility]) Extended Individual Psychotherapy - 45 min 12/28/2020 12:00:00 AM EDT - 12/28/2020 12:00:00 AM EDT [facility] ([facility]) Extended Individual Psychotherapy - 45 min 12:00:00 AM EDT [facility] ([facility]) MHC Telemed E/M Lvl 3--Est pt 12/11/2020 12:00:00 AM EST - 12/11/2020 12:00:00 AM EST [facility] ([facility]) Telemed A/O 30" 12/11/2020 12:00:00 AM EST [facility] ([facility]) MHC Telemed E/M Lvl 3--Est pt 12/11/2020 12:00:[address] [facility] ([facility]) Extended Individual Psychotherapy - 45 min 12/07/2020 12:00:00 AM EST - 12/07/2020 12:00:00 AM EST [facility] ([facility]) Extended Individual Psychotherapy - 45 min 12:00:00 AM EST [facility] ([facility]) TEMPMHCTelemed 30" Psychotherapy 021 12:00:00 AM EST - 11/07/2020 12:00:00 AM EST [facility] ([facility]) TEMPMHCTelemed 30" Psychotherapy 11/07/2020 12:00:00 A M EST [facility] ([facility]) OFFICE OUTPATIENT VISIT 15 MINUTES 10/25 12:00:00 AM EST - 10/25/2020 12:00:00 AM EST [facility] ([facility]) Psychotherapy ADD ON - 30 Minutes 10/25/2020 12:00:00 AM EST [facility] ([facility]) OFFICE OUTPATIENT VISIT 15 MINUTES 10/25/2020 12:00:00 AM EST [facility] ([facility]) Extended Individual Psychotherapy - 45 min 10/20/2020 12:00:00 AM EST - 10/20/2020 12:00:00 AM EST [facility] ([facility]) Extended Individual Psychotherapy - 45 min 1 12:00:00 AM EST [facility] ([facility]) Extended Individual Psychotherapy - 45 min 09/28/2020 12:00:00 AM EST - 09/28/2020 12:00:00 AM EST [facility] ([facility]) Extended Individual Psychotherapy - 45 min 0 12:00:00 AM EST [facility] ([facility]) INCISION & DRAINAGE ABSCESS SIMPLE/SINGLE 09/25/2020 1 2:00:00 AM EST [facility] ([facility] INCISION & DRAINAGE ABSCESS SIMPLE/SINGLE 09/25/2020 1 2:00:00 AM EST [facility] ([facility] OFFICE OUTPATIENT VISIT 15 MINUTES 09/21 12:00:00 AM EST - 09/21/2020 12:00:00 AM EST [facility] ([facility]) Psychotherapy ADD ON - 30 Minutes 09/21/2020 12:00:00 AM EST [facility] ([facility]) OFFICE OUTPATIENT VISIT 15 MINUTES 09/21/2020 12:00:00 AM EST [facility] ([facility]) Extended Individual Psychotherapy - 45 min 09/11/2020 12:00:00 AM EST - 09/11/2020 12:00:00 AM EST [facility] ([facility]) Extended Individual Psychotherapy - 45 min 0 12:00:00 AM EST [facility] ([facility]) OFFICE OUTPATIENT VISIT 15 MINUTES 08/24 12:00:00 AM EST - 08/24/2020 12:00:00 AM EST [facility] ([facility]) Psychotherapy ADD ON - 30 Minutes 08/24/2020 12:00:00 AM EST [facility] ([facility]) OFFICE OUTPATIENT VISIT 15 MINUTES 08/24/2020 12:00:00 AM EST [facility] ([facility]) Brief Individual Psychotherapy - 30 min 08/17/2020 12:00:00 AM EST - 08/17/2020 12:00:00 AM EST [facility] ([facility]) Brief Individual Psychotherapy - 30 min 08/17/2020 12: 00:00 AM EST [facility] ([facility]) MHC Telemed E/M Lvl 3--Est pt 07/25/2020 12:00:00 AM EDT - 07/25/2020 12:00:00 AM EDT [facility] ([facility]) Telemed A/O 30" 07/25/2020 12:00:00 AM EDT [facility] ([facility]) MHC Telemed E/M Lvl 3--Est pt 07/25/2020 12:00:00 AM E DT [facility] ([facility]) Brief Individual Psychotherapy - 30 min 07/20/2020 12:00:00 AM EDT - 07/20/2020 12:00:00 AM EDT [facility] ([facility]) Brief Individual Psychotherapy - 30 min 07/20/2020 12: 00:00 AM EDT [facility] ([facility]) TEMPMHCTelemed 30" Psychotherapy 020 12:00:00 AM EDT - 07/06/2020 12:00:00 AM EDT [facility] ([facility]) TEMPMHCTelemed 30" Psychotherapy 07/06/2020 12:00:00 A M EDT [facility] ([facility]) Results ID Date Data Source [id number] 05/18/2021 08:31:00 PM EDT [place] ([facility]) Name Value Range Interpretation Code Description Data Becky rce(s) Supporting Document(s) lipase 195 U/L 73-393 Lipase [place] ([facility]) ID Date Data Source [id number] 05/18/2021 08:31:00 PM EDT [place] ([facility]) Name Value Range Interpretation Code Description Data Becky rce(s) Supporting Document(s) glucose, fasting 159 mg/dL 70-100 Above high normal Glucose, Fas ting JEFF ([facility]) glomerular filtration rate > 60.0 >60 Glomerula r Filtration Rate JEFF ([facility]) creatinine for GFR 0.93 mg/dL 0.70-1.30 Creatinine for GF R JEFF ([facility]) blood urea nitrogen 9 mg/dL 7-18 Blood Urea Nitro gen JEFF ([facility]) potassium serum 3.9 mEq/L 3.5-5.1 Potassium [facility] sodium level 137 mEq/L 136-145 Sodium Level [place] ([facility]) chloride level 104 mEq/L 98-107 Chloride Level [place] ([facility]) carbon dioxide level 28 mEq/L 21-32 Carbon Dioxide Level [place] ([facility]) calcium level 8.2 mg/dL 8.5-10.1 Below low normal Calcium Level AT [facility]) anion gap 5 mEq/L 8-16 Below low normal Anion Gap [place] ( [facility]) ID Date Data Source [id number] 05/18/2021 08:31:00 PM EDT [place] ([facility]) Name Value Range Interpretation Code Description Data Becky rce(s) Supporting Document(s) ALT/SGPT 36 U/L 12-78 ALT/SGPT [facility] ([facility]) AST/SGOT 19 U/L 7-37 AST/SGOT [place] ([facility]) bilirubin,total 0.4 mg/dL 0.2-1.0 Bil[facility] alkaline phosphatase 75 U/L 45-117 Alkaline Phosph atase [place] ([facility]) bilirubin,direct 0.1 mg/dL 0.0-0.2 Bilirubin,direct AT [facility]) albumin 3.6 gm/dL 3.2-5.2 Albumin [facility] ([facility]) total protein 7.0 gm/dL 6.4-8.2 Total Protein JE[facility] ( [facility]) albumin/globulin ratio Albumin/globu bianca Ratio [facility] ([facility]) ID Date Data Source [id number] 05/18/2021 08:31:00 PM EDT [facility] ([facility]) Name Value Range Interpretation Code Description Data Becky rce(s) Supporting Document(s) red blood count 5.35 10 4.30-6.10 Red Blood Count [facility] ([facility]) white blood count 6.3 10 4.0-10.0 White Blood Count JE[facility] ([facility]) hemoglobin 15.7 g/dL 13.5-17.5 Hemoglobin [facility] ([facility]) hematocrit 46.9 % 42.0-52.0 Hematocrit [facility] ([facility]) mean corpuscular volume 87.7 fL 80.0-96.0 Mean Corpusc ular Volume [facility] ([facility]) mean corpuscular hemoglobin 29.3 pg 27.0-33.0 Mean Cor puscular Hemoglobin JE[facility] ([facility]) mean corpuscular HGB conc 33.5 g/dL 32.0-36.5 Mean Corpu scular HGB Conc [place] ([facility]) red cell distribution width 13.3 % 11.5-14.5 Red Cell Distribution Width [facility] ([facility]) platelet count, automated 190 10 150-450 Platelet C ount, Automated [facility] ([facility]) neutrophils % 57.8 % 36.0-66.0 Neutrophils % JE[facility] ( [facility]) mono % 8.4 % 2.0-8.0 Above high normal Esmeralda % JEFF ([facility]) lymph % 23.9 % 24.0-44.0 Below low normal Lymph % JEFF ( [facility]) eos % 6.5 % 0.0-3.0 Above high normal Eos % JEFF ([facility]) baso % 1.3 % 0.0-1.0 Above high normal Baso % JEFF ([facility]) immature granulocyte % 2.1 % 0-3.0 Immature Gran ulocyte % JE[facility] ([facility]) nucleated red blood cell % 0.0 % 0-0 Nucleated Red Blood Cell % JE[facility] ([facility]) neutrophils # 3.7 10 1.5-8.5 Neutrophils # JEFF ( [facility]) lymph # 1.5 10 1.5-5.0 Lymph # JEFF ([facility]) mono # 0.5 10 0.0-0.8 Esmeralda # [facility] ([facility]) eos # 0.4 10 0.0-0.5 Eos # [facility] ([facility]) baso # 0.1 10 0.0-0.2 Baso # [facility] ([facility]) ID Date Data Source [id number] 05/18/2021 08:31:00 PM EDT [place] ([facility]) Name Value Range Interpretation Code Description Data Becky rce(s) Supporting Document(s) lipase 195 U/L 73-393 Lipase [place] ([facility]) ID Date Data Source [id number] 05/18/2021 08:31:00 PM EDT [facility]) Name Value Range Interpretation Code Description Data Becky rce(s) Supporting Document(s) glucose, fasting 159 mg/dL 70-100 Above high normal Glucose, Fas ting JEFF ([facility]) blood urea nitrogen 9 mg/dL 7-18 Blood Urea Nitro gen JE[facility] ([facility]) creatinine for GFR 0.93 mg/dL 0.70-1.30 Creatinine for GF R JEFF ([facility]) glomerular filtration rate > 60.0 >60 Glomerula r Filtration Rate JEFF ([facility]) potassium serum 3.9 mEq/L 3.5-5.1 Potassium Serum ATH NA ([facility]) sodium level 137 mEq/L 136-145 Sodium Level [facility] ([facility]) chloride level 104 mEq/L 98-107 Chloride Level [facility] ([facility]) carbon dioxide level 28 mEq/L 21-32 Carbon Dioxide Level [facility] ([facility]) calcium level 8.2 mg/dL 8.5-10.1 Below low normal Calcium Level AT [facility] ([facility]) anion gap 5 mEq/L 8-16 Below low normal Anion Gap [facility] ( [facility]) ID Date Data Source [id number] 05/18/2021 08:31:00 PM EDT [facility] ([facility]) Name Value Range Interpretation Code Description Data Becky rce(s) Supporting Document(s) AST/SGOT 19 U/L 7-37 AST/SGOT [facility] ([facility]) ALT/SGPT 36 U/L 12-78 ALT/SGPT [facility] ([facility]) bilirubin,total 0.4 mg/dL 0.2-1.0 Bilirubin,total [facility] ([facility]) alkaline phosphatase 75 U/L 45-117 Alkaline Phosph atase [facility] ([facility]) bilirubin,direct 0.1 mg/dL 0.0-0.2 Bilirubin,direct AT [facility] ([facility]) total protein 7.0 gm/dL 6.4-8.2 Total Protein [facility] ( [facility]) albumin/globulin ratio Albumin/globu bianca Ratio [facility] ([facility]) albumin 3.6 gm/dL 3.2-5.2 Albumin [facility] ([facility]) ID Date Data Source [id number] 05/18/2021 08:31:00 PM EDT [facility] ([facility]) Name Value Range Interpretation Code Description Data Becky rce(s) Supporting Document(s) white blood count 6.3 10 4.0-10.0 White Blood Count [facility] ([facility]) red blood count 5.35 10 4.30-6.10 Red Blood Count ATHE NA ([facility]) hemoglobin 15.7 g/dL 13.5-17.5 Hemoglobin [facility] ([facility]) mean corpuscular volume 87.7 fL 80.0-96.0 Mean Corpusc ular Volume [facility] ([facility]) hematocrit 46.9 % 42.0-52.0 Hematocrit [facility] ([facility]) mean corpuscular hemoglobin 29.3 pg 27.0-33.0 Mean Cor puscular Hemoglobin [facility] ([facility]) mean corpuscular HGB conc 33.5 g/dL 32.0-36.5 Mean Corpu scular HGB Conc [facility] ([facility]) red cell distribution width 13.3 % 11.5-14.5 Red Cell Distribution Width [facility] ([facility]) neutrophils % 57.8 % 36.0-66.0 Neutrophils % [place] ( [facility]) platelet count, automated 190 10 150-450 Platelet C ount, Automated [facility] ([facility]) lymph % 23.9 % 24.0-44.0 Below low normal Lymph % [facility] ( [facility]) mono % 8.4 % 2.0-8.0 Above high normal Esmeralda % [facility] ([facility]) eos % 6.5 % 0.0-3.0 Above high normal Eos % [place] ([facility]) immature granulocyte % 2.1 % 0-3.0 Immature Gran ulocyte % [place] ([facility]) baso % 1.3 % 0.0-1.0 Above high normal Baso % [facility] ([facility]) nucleated red blood cell % 0.0 % 0-0 Nucleated Red Blood Cell % [facility] ([facility]) neutrophils # 3.7 10 1.5-8.5 Neutrophils # JEFF ( [facility]) lymph # 1.5 10 1.5-5.0 Lymph # JEFF ([facility]) mono # 0.5 10 0.0-0.8 Esmeralda # [facility] ([facility]) baso # 0.1 10 0.0-0.2 Baso # [facility] ([facility]) eos # 0.4 10 0.0-0.5 Eos # [facility] ([facility]) ID Date Data Source [id number] 03/27/2021 10:41:00 AM EDT [facility]) Name Value Range Interpretation Code Description Data Becky rce(s) Supporting Document(s) Hemoglobin A1c/Hemoglobin.total in Blood 7.5 % Abnormal (applies to non- numeric results) Hba1C [facility] ([facility]) ID Date Data Source [id number] 03/27/2021 10:41:00 AM [facility] Name Value Range Interpretation Code Description Data Becky rce(s) Supporting Document(s) Hemoglobin A1c/Hemoglobin.total in Blood 7.5 % Abnormal (applies to non- numeric results) Hba1C [place] ([facility]) ID Date Data Source [id number] 03/27/2021 10:41:00 AM EDT [facility]) Name Value Range Interpretation Code Description Data Becky rce(s) Supporting Document(s) Hemoglobin A1c/Hemoglobin.total in Blood 7.5 % Abnormal (applies to non- numeric results) Hba1C [facility] ([facility]) ID Date Data Source [id number] 03/22/2021 12:00:00 AM EDT [facility]) Name Value Range Interpretation Code Description Data Becky rce(s) Supporting Document(s) Right Eye Incomplete - Unable to Capture Image Right Eye [facility] ([facility]) Left Eye Incomplete - Unable to Capture Image Left Eye [place] ([facility]) Ophthalmology Consult Not Ordered - Unable to Complete Exam Ophthalmology Consult [facility]) ID Date Data Source [id number] 03/22/2021 12:00:00 AM EDT [facility]) Name Value Range Interpretation Code Description Data Becky rce(s) Supporting Document(s) Right Eye Incomplete - Unable to Capture Image Right Eye [facility] ([facility]) Ophthalmology Consult Not Ordered - Unable to Complete Exam Ophthalmology Consult [facility] ([facility]) Left Eye Incomplete - Unable to Capture Image Left Eye [facility] ([facility]) ID Date Data Source [id number] 03/22/2021 12:00:00 AM EDT [facility]) Name Value Range Interpretation Code Description Data Becky rce(s) Supporting Document(s) Right Eye Incomplete - Unable to Capture Image Right Eye [facility] ([facility]) Ophthalmology Consult Not Ordered - Unable to Complete Exam Ophthalmology Consult [place] ([facility]) Left Eye Incomplete - Unable to Capture Image Left Eye [place] ([facility]) ID Date Data Source [id number] 03/22/2021 12:00:00 AM EDT [facility]) Name Value Range Interpretation Code Description Data Becky rce(s) Supporting Document(s) Left Eye Incomplete - Unable to Capture Image Left Eye [facility] ([facility]) Right Eye Incomplete - Unable to Capture Image Right Eye [place] ([facility]) Ophthalmology Consult Not Ordered - Unable to Complete Exam Ophthalmology Consult [place] ([facility]) ID Date Data Source [id number] 03/22/2021 12:00:00 AM EDT [place] ([facility]) Name Value Range Interpretation Code Description Data Becky rce(s) Supporting Document(s) Right Eye Incomplete - Unable to Capture Image Right Eye [facility] ([facility]) Left Eye Incomplete - Unable to Capture Image Left Eye [facility] ([facility]) Ophthalmology Consult Not Ordered - Unable to Complete Exam Ophthalmology Consult [place] ([facility]) ID Date Data Source [id number] 01/26/2021 03:20:00 AM EDT [facility] Name Value Range Interpretation Code Description Data Becky rce(s) Supporting Document(s) SARS-CoV-2 (COVID 19) NEGATIVE - SARS-CoV-2 (COVID19) [facility] This lab was ordered by [facility] a nd reported by [facility]. ID Date Data Source [id number] 11/15/2020 03:50:00 PM EST [facility] ([facility]) Name Value Range Interpretation Code Description Data Becky rce(s) Supporting Document(s) Hemoglobin A1c/Hemoglobin.total in Blood 7.6 [facility] ([facility]) Glucose [Mass/volume] in Serum or Plasma 128 [facility] ([facility]) ID Date Data Source [id number] 09/18/2020 09:39:00 AM EST [place] ([facility]) Name Value Range Interpretation Code Description Data Becky rce(s) Supporting Document(s) cholesterol level 211 mg/dL <200 Above high normal Cholesterol Level [facility] ([facility]) triglycerides level 677 mg/dL <150 Above high normal Triglycer ides Level [place] ([facility]) non-HDL-C 179 mg/dL Non-hdl-c [facility] ([facility]) HDL cholesterol 32 mg/dL >40 Below low normal HDL Cholestero l [facility] ([facility]) cholesterol risk ratio <5 Above high normal Choles terol Risk Ratio [place] ([facility]) ID Date Data Source [id number] 09/18/2020 09:39:00 AM EST [place] ([facility]) Name Value Range Interpretation Code Description Data Becky rce(s) Supporting Document(s) glucose, fasting 145 mg/dL 70-100 Above high normal Glucose, Fas ting [facility] ([facility]) creatinine for GFR 1.20 mg/dL 0.70-1.30 Creatinine for GF R [facility] ([facility]) blood urea nitrogen 19 mg/dL 7-18 Above high normal Blood Ure a Nitrogen [facility] ([facility]) glomerular filtration rate > 60.0 >60 Glomerula r Filtration Rate [facility] ([facility]) potassium serum 4.1 mEq/L 3.5-5.1 Potassium Serum [facility] NA ([facility]) chloride level 103 mEq/L 98-107 Chloride Level [facility] ([facility]) sodium level 137 mEq/L 136-145 Sodium Level [facility] ([facility]) anion gap 5 mEq/L 8-16 Below low normal Anion Gap [facility] ( [facility]) carbon dioxide level 29 mEq/L 21-32 Carbon Dioxide Level [facility] ([facility]) calcium level 9.0 mg/dL 8.5-10.1 Calcium Level [facility] ( [facility]) ALT/SGPT 38 U/L 12-78 ALT/SGPT [facility] ([facility]) AST/SGOT 16 U/L 7-37 AST/SGOT [facility] ([facility]) total protein 7.6 gm/dL 6.4-8.2 Total Protein [facility] ( [facility]) alkaline phosphatase 82 U/L 45-117 Alkaline Phosph atase [facility] ([facility]) bilirubin,total 0.4 mg/dL 0.2-1.0 Bilirubin,total AT[facility] NA ([facility]) albumin/globulin ratio Albumin/globu bianca Ratio [facility] ([facility]) albumin 4.0 gm/dL 3.2-5.2 Albumin [facility] ([facility]) ID Date Data Source [id number] 09/18/2020 09:39:00 AM EST [facility] ([facility]) Name Value Range Interpretation Code Description Data Becky rce(s) Supporting Document(s) cholesterol level 211 mg/dL <200 Above high normal Cholesterol Level [facility] ([facility]) HDL cholesterol 32 mg/dL >40 Below low normal HDL Cholestero l [facility] ([facility]) triglycerides level 677 mg/dL <150 Above high normal Triglycer ides Level [facility] ([facility]) non-HDL-C 179 mg/dL Non-hdl-c JE[facility] ([facility]) cholesterol risk ratio <5 Above high normal Choles terol Risk Ratio [facility] ([facility]) ID Date Data Source [id number] 09/18/2020 09:39:00 AM EST [facility] ([facility]) Name Value Range Interpretation Code Description Data Becky rce(s) Supporting Document(s) glucose, fasting 145 mg/dL 70-100 Above high normal Glucose, Fas ting [facility] ([facility]) blood urea nitrogen 19 mg/dL 7-18 Above high normal Blood Ure a Nitrogen [facility] ([facility]) creatinine for GFR 1.20 mg/dL 0.70-1.30 Creatinine for GF R JE[facility] ([facility]) glomerular filtration rate > 60.0 >60 Glomerula r Filtration Rate [facility] ([facility]) sodium level 137 mEq/L 136-145 Sodium Level JEFF ([facility]) potassium serum 4.1 mEq/L 3.5-5.1 Potassium Serum ATHE NA ([facility]) chloride level 103 mEq/L 98-107 Chloride Level [place] ([facility]) anion gap 5 mEq/L 8-16 Below low normal Anion Gap [facility] ( [facility]) carbon dioxide level 29 mEq/L 21-32 Carbon Dioxide Level [facility] ([facility]) calcium level 9.0 mg/dL 8.5-10.1 Calcium Level [facility] ( [facility]) AST/SGOT 16 U/L 7-37 AST/SGOT [facility] ([facility]) ALT/SGPT 38 U/L 12-78 ALT/SGPT [facility] ([facility]) alkaline phosphatase 82 U/L 45-117 Alkaline Phosph atase [facility] ([facility]) total protein 7.6 gm/dL 6.4-8.2 Total Protein [facility] ( [facility]) bilirubin,total 0.4 mg/dL 0.2-1.0 Bilirubin,total [facility] ([facility]) albumin 4.0 gm/dL 3.2-5.2 Albumin [facility] ([facility]) albumin/globulin ratio Albumin/globu bianca Ratio [facility] ([facility]) ID Date Data Source [id number] 09/18/2020 09:39:00 AM EST [facility] ([facility]) Name Value Range Interpretation Code Description Data Becky rce(s) Supporting Document(s) triglycerides level 677 mg/dL <150 Above high normal Triglycer ides Level [facility] ([facility]) cholesterol level 211 mg/dL <200 Above high normal Cholesterol Level [facility] ([facility]) non-HDL-C 179 mg/dL Non-hdl-c JE[facility] ([facility]) HDL cholesterol 32 mg/dL >40 Below low normal HDL Cholestero l JE[facility] ([facility]) cholesterol risk ratio <5 Above high normal Choles terol Risk Ratio [facility] ([facility]) ID Date Data Source [id number] 09/18/2020 09:39:00 AM EST [facility] ([facility]) Name Value Range Interpretation Code Description Data Becky rce(s) Supporting Document(s) glucose, fasting 145 mg/dL 70-100 Above high normal Glucose, Fas ting [facility] ([facility]) creatinine for GFR 1.20 mg/dL 0.70-1.30 Creatinine for GF R JE[facility] ([facility]) blood urea nitrogen 19 mg/dL 7-18 Above high normal Blood Ure a Nitrogen [facility] ([facility]) glomerular filtration rate > 60.0 >60 Glomerula r Filtration Rate [facility] ([facility]) potassium serum 4.1 mEq/L 3.5-5.1 Potassium Serum AT[facility] NA ([facility]) sodium level 137 mEq/L 136-145 Sodium Level JEFF ([facility]) carbon dioxide level 29 mEq/L 21-32 Carbon Dioxide Level [facility] ([facility]) chloride level 103 mEq/L 98-107 Chloride Level [facility] ([facility]) AST/SGOT 16 U/L 7-37 AST/SGOT [facility] ([facility]) calcium level 9.0 mg/dL 8.5-10.1 Calcium Level [facility] ( [facility]) anion gap 5 mEq/L 8-16 Below low normal Anion Gap [facility] ( [facility]) bilirubin,total 0.4 mg/dL 0.2-1.0 Bilirubin,total ATHE NA ([facility]) ALT/SGPT 38 U/L 12-78 ALT/SGPT [facility] ([facility]) alkaline phosphatase 82 U/L 45-117 Alkaline Phosph atase [facility] ([facility]) albumin/globulin ratio Albumin/globu bianca Ratio [facility] ([facility]) total protein 7.6 gm/dL 6.4-8.2 Total Protein [facility] ( [facility]) albumin 4.0 gm/dL 3.2-5.2 Albumin [facility] ([facility]) ID Date Data Source [id number] 09/18/2020 09:39:00 AM EST [facility] ([facility]) Name Value Range Interpretation Code Description Data Becky rce(s) Supporting Document(s) triglycerides level 677 mg/dL <150 Above high normal Triglycer ides Level [facility] ([facility]) cholesterol level 211 mg/dL <200 Above high normal Cholesterol Level J[facility] ([facility]) cholesterol risk ratio <5 Above high normal Choles terol Risk Ratio [facility] ([facility]) HDL cholesterol 32 mg/dL >40 Below low normal HDL Cholestero l [facility] ([facility]) non-HDL-C 179 mg/dL Non-hdl-c JE[facility] ([facility]) ID Date Data Source [id number] 09/18/2020 09:39:00 AM EST [facility] ([facility]) Name Value Range Interpretation Code Description Data Becky rce(s) Supporting Document(s) glucose, fasting 145 mg/dL 70-100 Above high normal Glucose, Fas ting [facility] ([facility]) blood urea nitrogen 19 mg/dL 7-18 Above high normal Blood Ure a Nitrogen [facility] ([facility]) creatinine for GFR 1.20 mg/dL 0.70-1.30 Creatinine for GF R JE[facility] ([facility]) sodium level 137 mEq/L 136-145 Sodium Level JE[facility] ([facility]) glomerular filtration rate > 60.0 >60 Glomerula r Filtration Rate JEFF ([facility]) carbon dioxide level 29 mEq/L 21-32 Carbon Dioxide Level JEFF ([facility]) potassium serum 4.1 mEq/L 3.5-5.1 Potassium Serum ATHE NA ([facility]) chloride level 103 mEq/L 98-107 Chloride Level JEFF ([facility]) anion gap 5 mEq/L 8-16 Below low normal Anion Gap JEFF ( [facility]) calcium level 9.0 mg/dL 8.5-10.1 Calcium Level JEFF ( [facility]) ALT/SGPT 38 U/L 12-78 ALT/SGPT JEFF ([facility]) AST/SGOT 16 U/L 7-37 AST/SGOT JEFF ([facility]) alkaline phosphatase 82 U/L 45-117 Alkaline Phosph atase JEFF ([facility]) bilirubin,total 0.4 mg/dL 0.2-1.0 Bilirubin,total ATHE ([facility]) albumin/globulin ratio Albumin/globu bianca Ratio JEFF ([facility]) total protein 7.6 gm/dL 6.4-8.2 Total Protein JEFF ( [facility]) albumin 4.0 gm/dL 3.2-5.2 Albumin JEFF ([facility]) ID Date Data Source [id number] 09/18/2020 09:39:00 AM EST JEFF ([facility]) Name Value Range Interpretation Code Description Data Becky rce(s) Supporting Document(s) triglycerides level 677 mg/dL <150 Above high normal Triglycer ides Level JEFF ([facility]) HDL cholesterol 32 mg/dL >40 Below low normal HDL Cholestero l JEFF ([facility]) cholesterol level 211 mg/dL <200 Above high normal Cholesterol Level JEFF ([facility]) non-HDL-C 179 mg/dL Non-hdl-c JEFF ([facility]) cholesterol risk ratio <5 Above high normal Choles terol Risk Ratio JEFF ([facility]) ID Date Data Source [id number] 09/18/2020 09:39:00 AM EST JEFF ([facility]) Name Value Range Interpretation Code Description Data Becky rce(s) Supporting Document(s) glucose, fasting 145 mg/dL 70-100 Above high normal Glucose, Fas ting JEFF ([facility]) creatinine for GFR 1.20 mg/dL 0.70-1.30 Creatinine for GF R JEFF ([facility]) blood urea nitrogen 19 mg/dL 7-18 Above high normal Blood Ure a Nitrogen JEFF ([facility]) glomerular filtration rate > 60.0 >60 Glomerula r Filtration Rate JEFF ([facility]) sodium level 137 mEq/L 136-145 Sodium Level JEFF ([facility]) potassium serum 4.1 mEq/L 3.5-5.1 Potassium Serum ATHE NA ([facility]) carbon dioxide level 29 mEq/L 21-32 Carbon Dioxide Level JEFF ([facility]) anion gap 5 mEq/L 8-16 Below low normal Anion Gap JEFF ( [facility]) chloride level 103 mEq/L 98-107 Chloride Level JEFF ([facility]) ALT/SGPT 38 U/L 12-78 ALT/SGPT JEFF ([facility]) calcium level 9.0 mg/dL 8.5-10.1 Calcium Level JEFF ( [facility]) AST/SGOT 16 U/L 7-37 AST/SGOT EJFF ([facility]) total protein 7.6 gm/dL 6.4-8.2 Total Protein JEFF ( [facility]) alkaline phosphatase 82 U/L 45-117 Alkaline Phosph atase JEFF ([facility]) bilirubin,total 0.4 mg/dL 0.2-1.0 Bilirubin,total ATHE ([facility]) albumin 4.0 gm/dL 3.2-5.2 Albumin JEFF ([facility]) albumin/globulin ratio Albumin/globu bianca Ratio JEFF ([facility]) ID Date Data Source [id number] 09/18/2020 09:39:00 AM EST JEFF ([facility]) Name Value Range Interpretation Code Description Data Becky rce(s) Supporting Document(s) triglycerides level 677 mg/dL <150 Above high normal Triglycer ides Level JEFF ([facility]) cholesterol level 211 mg/dL <200 Above high normal Cholesterol Level JEFF ([facility]) HDL cholesterol 32 mg/dL >40 Below low normal HDL Cholestero l JEFF ([facility]) cholesterol risk ratio <5 Above high normal Choles terol Risk Ratio JEFF ([facility]) non-HDL-C 179 mg/dL Non-hdl-c JEFF ([facility]) ID Date Data Source [id number] 09/18/2020 09:39:00 AM EST JEFF ([facility]) Name Value Range Interpretation Code Description Data Becky rce(s) Supporting Document(s) glucose, fasting 145 mg/dL 70-100 Above high normal Glucose, Fas ting JEFF ([facility]) blood urea nitrogen 19 mg/dL 7-18 Above high normal Blood Ure a Nitrogen JEFF ([facility]) creatinine for GFR 1.20 mg/dL 0.70-1.30 Creatinine for GF R JEFF ([facility]) glomerular filtration rate > 60.0 >60 Glomerula r Filtration Rate JEFF ([facility]) sodium level 137 mEq/L 136-145 Sodium Level JEFF ([facility]) potassium serum 4.1 mEq/L 3.5-5.1 Potassium Serum ATHE ([facility]) anion gap 5 mEq/L 8-16 Below low normal Anion Gap JEFF ( [facility]) chloride level 103 mEq/L 98-107 Chloride Level JEFF ([facility]) carbon dioxide level 29 mEq/L 21-32 Carbon Dioxide Level JEFF ([facility]) AST/SGOT 16 U/L 7-37 AST/SGOT JEFF ([facility]) calcium level 9.0 mg/dL 8.5-10.1 Calcium Level JEFF ( [facility]) ALT/SGPT 38 U/L 12-78 ALT/SGPT JEFF ([facility]) alkaline phosphatase 82 U/L 45-117 Alkaline Phosph atase JEFF ([facility]) bilirubin,total 0.4 mg/dL 0.2-1.0 Bilirubin,total ATHE NA ([facility]) albumin 4.0 gm/dL 3.2-5.2 Albumin JEFF ([facility]) total protein 7.6 gm/dL 6.4-8.2 Total Protein JEFF ( [facility]) albumin/globulin ratio Albumin/globu bianca Ratio JEFF ([facility]) ID Date Data Source [id number] 09/18/2020 09:39:00 AM EST JEFF ([facility]) Name Value Range Interpretation Code Description Data Becky rce(s) Supporting Document(s) HDL cholesterol 32 mg/dL >40 Below low normal HDL Cholestero l JEFF ([facility]) triglycerides level 677 mg/dL <150 Above high normal Triglycer ides Level JEFF ([facility]) cholesterol level 211 mg/dL <200 Above high normal Cholesterol Level JEFF ([facility]) non-HDL-C 179 mg/dL Non-hdl-c JEFF ([facility]) cholesterol risk ratio <5 Above high normal Choles terol Risk Ratio JEFF ([facility]) ID Date Data Source [id number] 09/18/2020 09:39:00 AM EST JEFF ([facility]) Name Value Range Interpretation Code Description Data Becky rce(s) Supporting Document(s) glucose, fasting 145 mg/dL 70-100 Above high normal Glucose, Fas ting JEFF ([facility]) glomerular filtration rate > 60.0 >60 Glomerula r Filtration Rate JEFF ([facility]) blood urea nitrogen 19 mg/dL 7-18 Above high normal Blood Ure a Nitrogen JEFF ([facility]) creatinine for GFR 1.20 mg/dL 0.70-1.30 Creatinine for GF R JEFF ([facility]) chloride level 103 mEq/L 98-107 Chloride Level JEFF ([facility]) sodium level 137 mEq/L 136-145 Sodium Level JEFF ([facility]) potassium serum 4.1 mEq/L 3.5-5.1 Potassium Serum ATHE NA ([facility]) carbon dioxide level 29 mEq/L 21-32 Carbon Dioxide Level JEFF ([facility]) anion gap 5 mEq/L 8-16 Below low normal Anion Gap JEFF ( [facility]) calcium level 9.0 mg/dL 8.5-10.1 Calcium Level JEFF ( [facility]) alkaline phosphatase 82 U/L 45-117 Alkaline Phosph atase JEFF ([facility]) ALT/SGPT 38 U/L 12-78 ALT/SGPT JEFF ([facility]) AST/SGOT 16 U/L 7-37 AST/SGOT JEFF ([facility]) albumin 4.0 gm/dL 3.2-5.2 Albumin JEFF ([facility]) total protein 7.6 gm/dL 6.4-8.2 Total Protein JEFF ( [facility]) bilirubin,total 0.4 mg/dL 0.2-1.0 Bilirubin,total ATHE ([facility]) albumin/globulin ratio Albumin/globu bianca Ratio JEFF ([facility]) ID Date Data Source [id number] 09/18/2020 09:39:00 AM EST [facility] Name Value Range Interpretation Code Description Data Becky rce(s) Supporting Document(s) Glucose, Fasting 145 mg/dL 70-100 [facility]) Blood Urea Nitrogen 19 mg/dL 7-18 [facility] ([facility]) Creatinine For GFR 1.20 mg/dL 0.70-1.30 [facility] ([facility]) Glomerular Filtration Rate Laboratory test result [facility] ([facility]) <content>Units are mL/min/1.73 m2</content>
<content></content>
<content>Chronic Kidney Disease Staging per NKF:</content>
<content></content>
<content>Stage I & II GFR >=60 Normal to Mildly Decreased</content>
<content>Stage III GFR 30- 59 Moderately Decreased</content>
<content>Stage IV GFR 15-29 Severely Decreased</content>
<content>Stage V GFR <15 Very Little GFR Left</content>
<content>ESRD GFR <15 on [employer]CH[employer]ICIAN</content>
<content></content> Potassium Serum 4.1 meq/L 3.5-5.1 [facility] ([facility]) Sodium Level 137 meq/L 136-145 [facility] Carbon Dioxide Level 29 meq/L 21-32 [facility] ( [facility] Chloride Level 103 meq/L 98-107 [facility] ([facility]) Anion Gap 5 meq/L 8-16 [facility] ([facility]) Alt/SGPT 38 U/L 12-78 [facility] ([facility]) Ast/Sgot 16 U/L 7-37 [facility] ([facility]) Calcium Level 9.0 mg/dL 8.5-10.1 [facility] ([facility]) Bilirubin,Total 0.4 mg/dL 0.2-1.0 [facility] ([facility]) Alkaline Phosphatase 82 U/L 45-117 [facility] ( [facility]) Total Protein 7.6 GM/DL 6.4-8.2 [facility] ([facility]) Albumin 4.0 GM/DL 3.2-5.2 [facility] ([facility]) Albumin/Globulin Ratio 1.1 [facility] ([facility]) ID Date Data Source [id number] 09/18/2020 09:39:00 AM EST [facility] ([facility]) Name Value Range Interpretation Code Description Data Becky rce(s) Supporting Document(s) Triglycerides Level 677 mg/dL [facility] ([facility] Cholesterol Level 211 mg/dL [facility]) HDL Cholesterol 32 mg/dL [facility] ([facility]) Cholesterol Risk Ratio 6.593 [facility] ([facility]) Non-HDL-C 179 mg/dL [facility] ([facility]) ID Date Data Source [id number] 09/18/2020 09:39:00 AM EST JEFF ([facility]) Name Value Range Interpretation Code Description Data Becky rce(s) Supporting Document(s) cholesterol level 211 mg/dL <200 Above high normal Cholesterol Level JEFF ([facility]) triglycerides level 677 mg/dL <150 Above high normal Triglycer ides Level JEFF ([facility]) HDL cholesterol 32 mg/dL >40 Below low normal HDL Cholestero l JEFF ([facility]) cholesterol risk ratio <5 Above high normal Choles terol Risk Ratio JEFF ([facility]) non-HDL-C 179 mg/dL Non-hdl-c JEFF ([facility]) ID Date Data Source [id number] 09/18/2020 09:39:00 AM EST JEFF ([facility]) Name Value Range Interpretation Code Description Data Becky rce(s) Supporting Document(s) glucose, fasting 145 mg/dL 70-100 Above high normal Glucose, Fas ting JEFF ([facility]) blood urea nitrogen 19 mg/dL 7-18 Above high normal Blood Ure a Nitrogen JEFF ([facility]) creatinine for GFR 1.20 mg/dL 0.70-1.30 Creatinine for GF R JEFF ([facility]) glomerular filtration rate > 60.0 >60 Glomerula r Filtration Rate JEFF ([facility]) sodium level 137 mEq/L 136-145 Sodium Level JEFF ([facility]) chloride level 103 mEq/L 98-107 Chloride Level JEFF ([facility]) potassium serum 4.1 mEq/L 3.5-5.1 Potassium Serum ATHE ([facility]) anion gap 5 mEq/L 8-16 Below low normal Anion Gap JEFF ( [facility]) carbon dioxide level 29 mEq/L 21-32 Carbon Dioxide Level JEFF ([facility]) calcium level 9.0 mg/dL 8.5-10.1 Calcium Level JEFF ( [facility]) AST/SGOT 16 U/L 7-37 AST/SGOT JEFF ([facility]) ALT/SGPT 38 U/L 12-78 ALT/SGPT JEFF ([facility]) bilirubin,total 0.4 mg/dL 0.2-1.0 Bilirubin,total ATHE ([facility]) alkaline phosphatase 82 U/L 45-117 Alkaline Phosph atase JEFF ([facility]) total protein 7.6 gm/dL 6.4-8.2 Total Protein JEFF ( [facility]) albumin/globulin ratio Albumin/globu bianca Ratio JEFF ([facility]) albumin 4.0 gm/dL 3.2-5.2 Albumin JEFF ([facility]) ID Date Data Source [id number] 09/18/2020 09:39:00 AM EST JEFF ([facility]) Name Value Range Interpretation Code Description Data Becky rce(s) Supporting Document(s) triglycerides level 677 mg/dL <150 Above high normal Triglycer ides Level JEFF ([facility]) cholesterol level 211 mg/dL <200 Above high normal Cholesterol Level JEFF ([facility]) HDL cholesterol 32 mg/dL >40 Below low normal HDL Cholestero l JEFF ([facility]) cholesterol risk ratio <5 Above high normal Choles terol Risk Ratio JEFF ([facility]) non-HDL-C 179 mg/dL Non-hdl-c JEFF ([facility]) ID Date Data Source [id number] 09/18/2020 09:39:00 AM EST JEFF ([facility]) Name Value Range Interpretation Code Description Data Becky rce(s) Supporting Document(s) glucose, fasting 145 mg/dL 70-100 Above high normal Glucose, Fas ting JEFF ([facility]) creatinine for GFR 1.20 mg/dL 0.70-1.30 Creatinine for GF R JEFF ([facility]) blood urea nitrogen 19 mg/dL 7-18 Above high normal Blood Ure a Nitrogen JEFF ([facility]) sodium level 137 mEq/L 136-145 Sodium Level JEFF ([facility]) glomerular filtration rate > 60.0 >60 Glomerula r Filtration Rate JEFF ([facility]) potassium serum 4.1 mEq/L 3.5-5.1 Potassium Serum ATHE NA ([facility]) anion gap 5 mEq/L 8-16 Below low normal Anion Gap JEFF ( [facility]) chloride level 103 mEq/L 98-107 Chloride Level JEFF ([facility]) carbon dioxide level 29 mEq/L 21-32 Carbon Dioxide Level JEFF ([facility]) calcium level 9.0 mg/dL 8.5-10.1 Calcium Level JEFF ( [facility]) ALT/SGPT 38 U/L 12-78 ALT/SGPT JEFF ([facility]) AST/SGOT 16 U/L 7-37 AST/SGOT JEFF ([facility]) bilirubin,total 0.4 mg/dL 0.2-1.0 Bilirubin,total ATHE ([facility]) total protein 7.6 gm/dL 6.4-8.2 Total Protein JEFF ( [facility]) alkaline phosphatase 82 U/L 45-117 Alkaline Phosph atase JEFF ([facility]) albumin 4.0 gm/dL 3.2-5.2 Albumin JEFF ([facility]) albumin/globulin ratio Albumin/globu bianca Ratio JEFF ([facility]) ID Date Data Source [id number] 09/18/2020 09:39:00 AM EST JEFF ([facility]) Name Value Range Interpretation Code Description Data Becky rce(s) Supporting Document(s) triglycerides level 677 mg/dL <150 Above high normal Triglycer ides Level JEFF ([facility]) HDL cholesterol 32 mg/dL >40 Below low normal HDL Cholestero l JEFF ([facility]) non-HDL-C 179 mg/dL Non-hdl-c JEFF ([facility]) cholesterol level 211 mg/dL <200 Above high normal Cholesterol Level JEFF ([facility]) cholesterol risk ratio <5 Above high normal Choles terol Risk Ratio JEFF ([facility]) ID Date Data Source [id number] 09/18/2020 09:39:00 AM EST JEFF ([facility]) Name Value Range Interpretation Code Description Data Becky rce(s) Supporting Document(s) glucose, fasting 145 mg/dL 70-100 Above high normal Glucose, Fas ting JEFF ([facility]) blood urea nitrogen 19 mg/dL 7-18 Above high normal Blood Ure a Nitrogen JEFF ([facility]) sodium level 137 mEq/L 136-145 Sodium Level JEFF ([facility]) glomerular filtration rate > 60.0 >60 Glomerula r Filtration Rate JEFF ([facility]) creatinine for GFR 1.20 mg/dL 0.70-1.30 Creatinine for GF R JEFF ([facility]) potassium serum 4.1 mEq/L 3.5-5.1 Potassium Serum ATHE NA ([facility]) chloride level 103 mEq/L 98-107 Chloride Level JEFF ([facility]) carbon dioxide level 29 mEq/L 21-32 Carbon Dioxide Level JEFF ([facility]) anion gap 5 mEq/L 8-16 Below low normal Anion Gap JEFF ( [facility]) calcium level 9.0 mg/dL 8.5-10.1 Calcium Level JEFF ( [facility]) ALT/SGPT 38 U/L 12-78 ALT/SGPT JEFF ([facility]) alkaline phosphatase 82 U/L 45-117 Alkaline Phosph atase JEFF ([facility]) bilirubin,total 0.4 mg/dL 0.2-1.0 Bilirubin,total ATHE ([facility]) AST/SGOT 16 U/L 7-37 AST/SGOT JEFF ([facility]) albumin 4.0 gm/dL 3.2-5.2 Albumin JEFF ([facility]) total protein 7.6 gm/dL 6.4-8.2 Total Protein JEFF ( [facility]) albumin/globulin ratio Albumin/globu bianca Ratio JEFF ([facility]) ID Date Data Source [id number] 09/18/2020 09:39:00 AM EST JEFF ([facility]) Name Value Range Interpretation Code Description Data Becky rce(s) Supporting Document(s) HDL cholesterol 32 mg/dL >40 Below low normal HDL Cholestero l JEFF ([facility]) cholesterol level 211 mg/dL <200 Above high normal Cholesterol Level JEFF ([facility]) triglycerides level 677 mg/dL <150 Above high normal Triglycer ides Level JEFF ([facility]) non-HDL-C 179 mg/dL Non-hdl-c JEFF ([facility]) cholesterol risk ratio <5 Above high normal Choles terol Risk Ratio JEFF ([facility]) ID Date Data Source [id number] 09/18/2020 09:39:00 AM EST JEFF ([facility]) Name Value Range Interpretation Code Description Data Becky rce(s) Supporting Document(s) glucose, fasting 145 mg/dL 70-100 Above high normal Glucose, Fas ting JEFF ([facility]) blood urea nitrogen 19 mg/dL 7-18 Above high normal Blood Ure a Nitrogen JEFF ([facility]) creatinine for GFR 1.20 mg/dL 0.70-1.30 Creatinine for GF R JEFF ([facility]) glomerular filtration rate > 60.0 >60 Glomerula r Filtration Rate JEFF ([facility]) sodium level 137 mEq/L 136-145 Sodium Level JEFF ([facility]) carbon dioxide level 29 mEq/L 21-32 Carbon Dioxide Level JEFF ([facility]) potassium serum 4.1 mEq/L 3.5-5.1 Potassium Serum ATHE ([facility]) chloride level 103 mEq/L 98-107 Chloride Level [place] ([facility]) calcium level 9.0 mg/dL 8.5-10.1 Calcium Level JEFF ( [facility]) AST/SGOT 16 U/L 7-37 AST/SGOT JEFF ([facility]) anion gap 5 mEq/L 8-16 Below low normal Anion Gap JEFF ( [facility]) ALT/SGPT 38 U/L 12-78 ALT/SGPT JEFF ([facility]) alkaline phosphatase 82 U/L 45-117 Alkaline Phosph atase JEFF ([facility]) bilirubin,total 0.4 mg/dL 0.2-1.0 Bilirubin,total ATHE NA ([facility]) total protein 7.6 gm/dL 6.4-8.2 Total Protein JEFF ( [facility]) albumin/globulin ratio Albumin/globu bianca Ratio JEFF ([facility]) albumin 4.0 gm/dL 3.2-5.2 Albumin JEFF ([facility]) ID Date Data Source [id number] 09/18/2020 09:39:00 AM EST JEFF ([facility]) Name Value Range Interpretation Code Description Data Becky rce(s) Supporting Document(s) cholesterol level 211 mg/dL <200 Above high normal Cholesterol Level JEFF ([facility]) triglycerides level 677 mg/dL <150 Above high normal Triglycer ides Level JEFF ([facility]) HDL cholesterol 32 mg/dL >40 Below low normal HDL Cholestero l JEFF ([facility]) non-HDL-C 179 mg/dL Non-hdl-c JEFF ([facility]) cholesterol risk ratio <5 Above high normal Choles terol Risk Ratio JEFF ([facility]) ID Date Data Source [id number] 09/18/2020 09:39:00 AM EST JEFF ([facility]) Name Value Range Interpretation Code Description Data Becky rce(s) Supporting Document(s) blood urea nitrogen 19 mg/dL 7-18 Above high normal Blood Ure a Nitrogen JEFF ([facility]) glucose, fasting 145 mg/dL 70-100 Above high normal Glucose, Fas ting JEFF ([facility]) creatinine for GFR 1.20 mg/dL 0.70-1.30 Creatinine for GF R JEFF ([facility]) glomerular filtration rate > 60.0 >60 Glomerula r Filtration Rate JEFF ([facility]) sodium level 137 mEq/L 136-145 Sodium Level JEFF ([facility]) chloride level 103 mEq/L 98-107 Chloride Level JEFF ([facility]) potassium serum 4.1 mEq/L 3.5-5.1 Potassium Serum ATHE NA ([facility]) anion gap 5 mEq/L 8-16 Below low normal Anion Gap JEFF ( [facility]) calcium level 9.0 mg/dL 8.5-10.1 Calcium Level JEFF ( [facility]) carbon dioxide level 29 mEq/L 21-32 Carbon Dioxide Level JEFF ([facility]) AST/SGOT 16 U/L 7-37 AST/SGOT JEFF ([facility]) ALT/SGPT 38 U/L 12-78 ALT/SGPT JEFF ([facility]) alkaline phosphatase 82 U/L 45-117 Alkaline Phosph atase JEFF ([facility]) total protein 7.6 gm/dL 6.4-8.2 Total Protein JEFF ( [facility]) bilirubin,total 0.4 mg/dL 0.2-1.0 Bilirubin,total ATHE ([facility]) albumin/globulin ratio Albumin/globu bianca Ratio JEFF ([facility]) albumin 4.0 gm/dL 3.2-5.2 Albumin JEFF ([facility]) ID Date Data Source [id number] 09/18/2020 09:39:00 AM EST JEFF ([facility]) Name Value Range Interpretation Code Description Data Becky rce(s) Supporting Document(s) cholesterol level 211 mg/dL <200 Above high normal Cholesterol Level JEFF ([facility]) triglycerides level 677 mg/dL <150 Above high normal Triglycer ides Level JEFF ([facility]) cholesterol risk ratio <5 Above high normal Choles terol Risk Ratio JEFF ([facility]) non-HDL-C 179 mg/dL Non-hdl-c JEFF ([facility]) HDL cholesterol 32 mg/dL >40 Below low normal HDL Cholestero l JEFF ([facility]) ID Date Data Source [id number] 09/18/2020 09:39:00 AM EST JEFF ([facility]) Name Value Range Interpretation Code Description Data Becky rce(s) Supporting Document(s) glucose, fasting 145 mg/dL 70-100 Above high normal Glucose, Fas ting JEFF ([facility]) creatinine for GFR 1.20 mg/dL 0.70-1.30 Creatinine for GF R JEFF ([facility]) blood urea nitrogen 19 mg/dL 7-18 Above high normal Blood Ure a Nitrogen JEFF ([facility]) potassium serum 4.1 mEq/L 3.5-5.1 Potassium Serum ATHE NA ([facility]) sodium level 137 mEq/L 136-145 Sodium Level JEFF ([facility]) glomerular filtration rate > 60.0 >60 Glomerula r Filtration Rate JEFF ([facility]) carbon dioxide level 29 mEq/L 21-32 Carbon Dioxide Level JEFF ([facility]) chloride level 103 mEq/L 98-107 Chloride Level JEFF ([facility]) anion gap 5 mEq/L 8-16 Below low normal Anion Gap JEFF ( [facility]) ALT/SGPT 38 U/L 12-78 ALT/SGPT JEFF ([facility]) calcium level 9.0 mg/dL 8.5-10.1 Calcium Level JEFF ( [facility]) AST/SGOT 16 U/L 7-37 AST/SGOT JEFF ([facility]) alkaline phosphatase 82 U/L 45-117 Alkaline Phosph atase JEFF ([facility]) total protein 7.6 gm/dL 6.4-8.2 Total Protein JEFF ( [facility]) bilirubin,total 0.4 mg/dL 0.2-1.0 Bilirubin,total ATHE NA ([facility]) albumin/globulin ratio Albumin/globu bianca Ratio JEFF ([facility]) albumin 4.0 gm/dL 3.2-5.2 Albumin JEFF ([facility]) ID Date Data Source [id number] 09/18/2020 09:39:00 AM EST JEFF ([facility]) Name Value Range Interpretation Code Description Data Becky rce(s) Supporting Document(s) triglycerides level 677 mg/dL <150 Above high normal Triglycer ides Level JEFF ([facility]) cholesterol level 211 mg/dL <200 Above high normal Cholesterol Level JEFF ([facility]) HDL cholesterol 32 mg/dL >40 Below low normal HDL Cholestero l JEFF ([facility]) cholesterol risk ratio <5 Above high normal Choles terol Risk Ratio JEFF ([facility]) non-HDL-C 179 mg/dL Non-hdl-c JEFF ([facility]) ID Date Data Source [id number] 09/18/2020 09:39:00 AM EST JEFF ([facility]) Name Value Range Interpretation Code Description Data Becky rce(s) Supporting Document(s) blood urea nitrogen 19 mg/dL 7-18 Above high normal Blood Ure a Nitrogen JEFF ([facility]) glucose, fasting 145 mg/dL 70-100 Above high normal Glucose, Fas ting JEFF ([facility]) glomerular filtration rate > 60.0 >60 Glomerula r Filtration Rate JEFF ([facility]) creatinine for GFR 1.20 mg/dL 0.70-1.30 Creatinine for GF R JEFF ([facility]) sodium level 137 mEq/L 136-145 Sodium Level JEFF ([facility]) potassium serum 4.1 mEq/L 3.5-5.1 Potassium Serum ATHE ([facility]) carbon dioxide level 29 mEq/L 21-32 Carbon Dioxide Level JEFF ([facility]) anion gap 5 mEq/L 8-16 Below low normal Anion Gap JEFF ( [facility]) chloride level 103 mEq/L 98-107 Chloride Level JEFF ([facility]) calcium level 9.0 mg/dL 8.5-10.1 Calcium Level JEFF ( [facility]) AST/SGOT 16 U/L 7-37 AST/SGOT JEFF ([facility]) ALT/SGPT 38 U/L 12-78 ALT/SGPT JEFF ([facility]) total protein 7.6 gm/dL 6.4-8.2 Total Protein JEFF ( [facility]) bilirubin,total 0.4 mg/dL 0.2-1.0 Bilirubin,total ATHE NA ([facility]) alkaline phosphatase 82 U/L 45-117 Alkaline Phosph atase JEFF ([facility]) albumin/globulin ratio Albumin/globu bianca Ratio JEFF ([facility]) albumin 4.0 gm/dL 3.2-5.2 Albumin JEFF ([facility]) ID Date Data Source [id number] 08/17/2020 03:43:00 PM EST MED[facility] ([facility]) Name Value Range Interpretation Code Description Data Becky rce(s) Supporting Document(s) Hemoglobin A1c/Hemoglobin.total in Blood 8.8 [facility] ([facility]) Glucose [Mass/volume] in Serum or Plasma 277 [facility] ([facility]) ID Date Data Source [id number] 08/09/2020 02:13:00 PM EDT JEFF ([facility]) Name Value Range Interpretation Code Description Data Becky rce(s) Supporting Document(s) color, urine yellow yellow Color, Urine JEFF ([facility]) appearance, urine clear clear Appearance, Urine JEFF ([facility]) pH,urine 5.0 units 5.0-9.0 pH,urine JEFF ([facility]) protein, urine auto negative negative Protein, Urine A nvo [place] ([facility]) urobilinogen, urine auto 0.2 mg/dL 0.0-2.0 Urobilinoge n, Urine Auto JEFF ([facility]) ketone, urine auto negative negative Ketone, Urine Aut o JEFF ([facility]) glucose, urine (UA) auto 3+ negative Above high normal Gluc ose, Urine (UA) Auto JEFF ([facility]) specific gravity urine auto 1.002-1.035 Specifi c [place] Urine Auto JEFF ([facility]) blood, urine blood negative negative Blood, Urine Bloo d JEFF ([facility]) nitrite, urine auto negative negative Nitrite, Urine A uto JEFF ([facility]) bilirubin, urine auto negative negative Bilirubin, Uri ne Auto JEFF ([facility]) leukocyte esterase, urine auto negative negative Leukocyte Esterase, Urine Auto JE[facility] ([facility]) RBC, urine auto 2 /hpf 0-3 RBC, Urine Auto ATHE NA ([facility]) bacteria, urine auto negative negative Bacteria, Urine Auto JEFF ([facility]) squamous epithelial cell ur AU 0 /hpf 0-6 Squam ous Epithelial Cell Ur AU JEFF ([facility]) hyaline cast, urine auto 0 /lpf 0-1 Hyaline Maximilian t, Urine Auto JEFF ([facility]) WBC, urine auto 0 /hpf 0-3 WBC, Urine Auto ATHE NA ([facility]) ID Date Data Source [id number] 08/09/2020 02:13:00 PM EDT [place] ([facility]) Name Value Range Interpretation Code Description Data Becky rce(s) Supporting Document(s) appearance, urine clear clear Appearance, Urine JEFF ([facility]) color, urine yellow yellow Color, Urine JEFF ([facility]) pH,urine 5.0 units 5.0-9.0 pH,urine JE[facility] ([facility]) protein, urine auto negative negative Protein, Urine A nvo [place] ([facility]) specific gravity urine auto 1.002-1.035 Specifi c [place] Urine Auto JEFF ([facility]) glucose, urine (UA) auto 3+ negative Above high normal Gluc ose, Urine (UA) Auto JE[facility] ([facility]) bilirubin, urine auto negative negative Bilirubin, Uri ne Auto EJFF ([facility]) ketone, urine auto negative negative Ketone, Urine Aut o JEFF ([facility]) urobilinogen, urine auto 0.2 mg/dL 0.0-2.0 Urobilinoge n, Urine Auto JE[facility] ([facility]) nitrite, urine auto negative negative Nitrite, Urine A uto JEFF ([facility]) leukocyte esterase, urine auto negative negative Leukocyte Esterase, Urine Auto JE[facility] ([facility]) WBC, urine auto 0 /hpf 0-3 WBC, Urine Auto ATHE NA ([facility]) bacteria, urine auto negative negative Bacteria, Urine Auto JE[facility] ([facility]) blood, urine blood negative negative Blood, Urine Bloo d JEFF ([facility]) RBC, urine auto 2 /hpf 0-3 RBC, Urine Auto ATHE NA ([facility]) hyaline cast, urine auto 0 /lpf 0-1 Hyaline Maximilian t, Urine Auto JEFF ([facility]) squamous epithelial cell ur AU 0 /hpf 0-6 Squam ous Epithelial Cell Ur AU JEFF ([facility]) ID Date Data Source [id number] 08/09/2020 02:13:00 PM EDT JEFF ([facility]) Name Value Range Interpretation Code Description Data Becky rce(s) Supporting Document(s) appearance, urine clear clear Appearance, Urine JEFF ([facility]) pH,urine 5.0 units 5.0-9.0 pH,urine JE[facility] ([facility]) color, urine yellow yellow Color, Urine JEFF ([facility]) specific gravity urine auto 1.002-1.035 Specifi c [place] Urine Auto JEFF ([facility]) ketone, urine auto negative negative Ketone, Urine Aut o JE[facility] ([facility]) protein, urine auto negative negative Protein, Urine A uto JE[facility] ([facility]) glucose, urine (UA) auto 3+ negative Above high normal Gluc ose, Urine (UA) Auto JEFF ([facility]) leukocyte esterase, urine auto negative negative Leukocyte Esterase, Urine Auto JE[facility] ([facility]) bilirubin, urine auto negative negative Bilirubin, Uri ne Auto JEFF ([facility]) nitrite, urine auto negative negative Nitrite, Urine A uto JE[facility] ([facility]) urobilinogen, urine auto 0.2 mg/dL 0.0-2.0 Urobilinoge n, Urine Auto JE[facility] ([facility]) blood, urine blood negative negative Blood, Urine Bloo d JE[facility] ([facility]) WBC, urine auto 0 /hpf 0-3 WBC, Urine Auto AT[facility] NA ([facility]) bacteria, urine auto negative negative Bacteria, Urine Auto JE[facility] ([facility]) RBC, urine auto 2 /hpf 0-3 RBC, Urine Auto ATHE NA ([facility]) squamous epithelial cell ur AU 0 /hpf 0-6 Squam ous Epithelial Cell Ur AU JEFF ([facility]) hyaline cast, urine auto 0 /lpf 0-1 Hyaline Maximilian t, Urine Auto JE[facility] ([facility]) ID Date Data Source [id number] 08/09/2020 02:13:00 PM EDT JEFF ([facility]) Name Value Range Interpretation Code Description Data Becky rce(s) Supporting Document(s) appearance, urine clear clear Appearance, Urine JEFF ([facility]) color, urine yellow yellow Color, Urine JEFF ([facility]) glucose, urine (UA) auto 3+ negative Above high normal Gluc ose, Urine (UA) Auto JEFF ([facility]) specific gravity urine auto 1.002-1.035 Specifi c [place] Urine Auto JEFF ([facility]) protein, urine auto negative negative Protein, Urine A uto JE[facility] ([facility]) pH,urine 5.0 units 5.0-9.0 pH,urine JE[facility] ([facility]) ketone, urine auto negative negative Ketone, Urine Aut o JEFF ([facility]) urobilinogen, urine auto 0.2 mg/dL 0.0-2.0 Urobilinoge n, Urine Auto JEFF ([facility]) bilirubin, urine auto negative negative Bilirubin, Uri ne Auto JEFF ([facility]) nitrite, urine auto negative negative Nitrite, Urine A uto JE[facility] ([facility]) blood, urine blood negative negative Blood, Urine Bloo d JEFF ([facility]) leukocyte esterase, urine auto negative negative Leukocyte Esterase, Urine Auto [facility] ([facility]) bacteria, urine auto negative negative Bacteria, Urine Auto [facility] ([facility]) RBC, urine auto 2 /hpf 0-3 RBC, Urine Auto AT[facility] NA ([facility]) squamous epithelial cell ur AU 0 /hpf 0-6 Squam ous Epithelial Cell Ur AU JEFF ([facility]) WBC, urine auto 0 /hpf 0-3 WBC, Urine Auto ATHE NA ([facility]) hyaline cast, urine auto 0 /lpf 0-1 Hyaline Maximilian t, Urine Auto JEFF ([facility]) ID Date Data Source [id number] 08/09/2020 02:13:00 PM EDT JEFF ([facility]) Name Value Range Interpretation Code Description Data Becky rce(s) Supporting Document(s) pH,urine 5.0 units 5.0-9.0 pH,urine JE[facility] ([facility]) specific gravity urine auto 1.002-1.035 Specifi c [place] Urine Auto JEFF ([facility]) appearance, urine clear clear Appearance, Urine JEFF ([facility]) color, urine yellow yellow Color, Urine [facility] protein, urine auto negative negative Protein, Urine A uto JEFF ([facility]) ketone, urine auto negative negative Ketone, Urine Aut o JEFF ([facility]) urobilinogen, urine auto 0.2 mg/dL 0.0-2.0 Urobilinoge n, Urine Auto JEFF ([facility]) glucose, urine (UA) auto 3+ negative Above high normal Gluc ose, Urine (UA) Auto JEFF ([facility]) blood, urine blood negative negative Blood, Urine Bloo d JEFF ([facility]) nitrite, urine auto negative negative Nitrite, Urine A uto JEFF ([facility]) bilirubin, urine auto negative negative Bilirubin, Uri ne Auto JEFF ([facility]) WBC, urine auto 0 /hpf 0-3 WBC, Urine Auto ATHE NA ([facility]) leukocyte esterase, urine auto negative negative Leukocyte Esterase, Urine Auto JEFF ([facility]) RBC, urine auto 2 /hpf 0-3 RBC, Urine Auto ATHE NA ([facility]) hyaline cast, urine auto 0 /lpf 0-1 Hyaline Maximilian t, Urine Auto JEFF ([facility]) bacteria, urine auto negative negative Bacteria, Urine Auto JE[facility] ([facility]) squamous epithelial cell ur AU 0 /hpf 0-6 Squam ous Epithelial Cell Ur AU JEFF ([facility]) ID Date Data Source [id number] 08/09/2020 02:13:00 PM EDT JEFF ([facility]) Name Value Range Interpretation Code Description Data Becky rce(s) Supporting Document(s) appearance, urine clear clear Appearance, Urine JEFF ([facility]) specific gravity urine auto 1.002-1.035 Specifi c [place] Urine Auto JEFF ([facility]) pH,urine 5.0 units 5.0-9.0 pH,urine JE[facility] ([facility]) color, urine yellow yellow Color, Urine JEFF ([facility]) protein, urine auto negative negative Protein, Urine A uto JEFF ([facility]) urobilinogen, urine auto 0.2 mg/dL 0.0-2.0 Urobilinoge n, Urine Auto JE[facility] ([facility]) glucose, urine (UA) auto 3+ negative Above high normal Gluc ose, Urine (UA) Auto JE[facility] ([facility]) ketone, urine auto negative negative Ketone, Urine Aut o [facility] ([facility]) blood, urine blood negative negative Blood, Urine Bloo d JE[facility] ([facility]) nitrite, urine auto negative negative Nitrite, Urine A uto JE[facility] ([facility]) leukocyte esterase, urine auto negative negative Leukocyte Esterase, Urine Auto [facility] ([facility]) bilirubin, urine auto negative negative Bilirubin, Uri ne Auto JEFF ([facility]) squamous epithelial cell ur AU 0 /hpf 0-6 Squam ous Epithelial Cell Ur AU JEFF ([facility]) bacteria, urine auto negative negative Bacteria, Urine Auto JE[facility] ([facility]) WBC, urine auto 0 /hpf 0-3 WBC, Urine Auto AT[facility] NA ([facility]) hyaline cast, urine auto 0 /lpf 0-1 Hyaline Maximilian t, Urine Auto [facility] ([facility]) RBC, urine auto 2 /hpf 0-3 RBC, Urine Auto AT[facility] NA ([facility]) ID Date Data Source [id number] 08/09/2020 02:13:00 PM EDT JEFF ([facility]) Name Value Range Interpretation Code Description Data Becky rce(s) Supporting Document(s) color, urine yellow yellow Color, Urine JEFF ([facility]) appearance, urine clear clear Appearance, Urine JEFF ([facility]) protein, urine auto negative negative Protein, Urine A uto JEFF ([facility]) pH,urine 5.0 units 5.0-9.0 pH,urine JEFF ([facility]) glucose, urine (UA) auto 3+ negative Above high normal Gluc ose, Urine (UA) Auto JEFF ([facility]) specific gravity urine auto 1.002-1.035 Specifi c [place] Urine Auto JEFF ([facility]) bilirubin, urine auto negative negative Bilirubin, Uri ne Auto JEFF ([facility]) leukocyte esterase, urine auto negative negative Leukocyte Esterase, Urine Auto JE[facility] ([facility]) ketone, urine auto negative negative Ketone, Urine Aut o JEFF ([facility]) nitrite, urine auto negative negative Nitrite, Urine A uto JE[facility] ([facility]) urobilinogen, urine auto 0.2 mg/dL 0.0-2.0 Urobilinoge n, Urine Auto JEFF ([facility]) bacteria, urine auto negative negative Bacteria, Urine Auto JE[facility] ([facility]) blood, urine blood negative negative Blood, Urine Bloo d JEFF ([facility]) squamous epithelial cell ur AU 0 /hpf 0-6 Squam ous Epithelial Cell Ur AU JEFF ([facility]) RBC, urine auto 2 /hpf 0-3 RBC, Urine Auto ATHE NA ([facility]) WBC, urine auto 0 /hpf 0-3 WBC, Urine Auto ATHE NA ([facility]) hyaline cast, urine auto 0 /lpf 0-1 Hyaline Maximilian t, Urine Auto JEFF ([facility]) ID Date Data Source [id number] 08/09/2020 02:13:00 PM EDT [place] ([facility]) Name Value Range Interpretation Code Description Data Becky rce(s) Supporting Document(s) pH,urine 5.0 units 5.0-9.0 pH,urine JEFF ([facility]) specific gravity urine auto 1.002-1.035 Specifi c [place] Urine Auto JEFF ([facility]) color, urine yellow yellow Color, Urine JEFF ([facility]) appearance, urine clear clear Appearance, Urine JEFF ([facility]) urobilinogen, urine auto 0.2 mg/dL 0.0-2.0 Urobilinoge n, Urine Auto JEFF ([facility]) glucose, urine (UA) auto 3+ negative Above high normal Gluc ose, Urine (UA) Auto JE[facility] ([facility]) ketone, urine auto negative negative Ketone, Urine Aut o JEFF ([facility]) protein, urine auto negative negative Protein, Urine A uto JE[facility] ([facility]) bilirubin, urine auto negative negative Bilirubin, Uri ne Auto JEFF ([facility]) WBC, urine auto 0 /hpf 0-3 WBC, Urine Auto ATHE NA ([facility]) leukocyte esterase, urine auto negative negative Leukocyte Esterase, Urine Auto JEFF ([facility]) nitrite, urine auto negative negative Nitrite, Urine A uto JE[facility] ([facility]) blood, urine blood negative negative Blood, Urine Bloo d JEFF ([facility]) squamous epithelial cell ur AU 0 /hpf 0-6 Squam ous Epithelial Cell Ur AU JEFF ([facility]) bacteria, urine auto negative negative Bacteria, Urine Auto JE[facility] ([facility]) RBC, urine auto 2 /hpf 0-3 RBC, Urine Auto AT[facility] NA ([facility]) hyaline cast, urine auto 0 /lpf 0-1 Hyaline Maximilian t, Urine Auto JEFF ([facility]) ID Date Data Source [id number] 08/09/2020 02:13:00 PM EDT JEFF ([facility]) Name Value Range Interpretation Code Description Data Becky rce(s) Supporting Document(s) pH,urine 5.0 units 5.0-9.0 pH,urine JEFF ([facility]) appearance, urine clear clear Appearance, Urine JEFF ([facility]) color, urine yellow yellow Color, Urine JEFF ([facility]) specific gravity urine auto 1.002-1.035 Specifi c [place] Urine Auto JEFF ([facility]) protein, urine auto negative negative Protein, Urine A uto JEFF ([facility]) urobilinogen, urine auto 0.2 mg/dL 0.0-2.0 Urobilinoge n, Urine Auto JEFF ([facility]) glucose, urine (UA) auto 3+ negative Above high normal Gluc ose, Urine (UA) Auto JE[facility] ([facility]) ketone, urine auto negative negative Ketone, Urine Aut o JEFF ([facility]) WBC, urine auto 0 /hpf 0-3 WBC, Urine Auto ATHE NA ([facility]) blood, urine blood negative negative Blood, Urine Bloo d JEFF ([facility]) leukocyte esterase, urine auto negative negative Leukocyte Esterase, Urine Auto [facility] ([facility]) bilirubin, urine auto negative negative Bilirubin, Uri ne Auto JEFF ([facility]) nitrite, urine auto negative negative Nitrite, Urine A uto [facility] ([facility]) RBC, urine auto 2 /hpf 0-3 RBC, Urine Auto [facility] NA ([facility]) bacteria, urine auto negative negative Bacteria, Urine Auto [facility] ([facility]) hyaline cast, urine auto 0 /lpf 0-1 Hyaline Maximilian t, Urine Auto JEFF ([facility]) squamous epithelial cell ur AU 0 /hpf 0-6 Squam ous Epithelial Cell Ur AU JEFF ([facility]) ID Date Data Source [id number] 08/09/2020 02:13:00 PM EDT [facility] ([facility]) Name Value Range Interpretation Code Description Data Becky rce(s) Supporting Document(s) color, urine yellow yellow Color, Urine JEFF ([facility]) appearance, urine clear clear Appearance, Urine JEFF ([facility]) pH,urine 5.0 units 5.0-9.0 pH,urine JE[facility] ([facility]) protein, urine auto negative negative Protein, Urine A uto [facility] ([facility]) specific gravity urine auto 1.002-1.035 Specifi c [place] Urine Auto JEFF ([facility]) ketone, urine auto negative negative Ketone, Urine Aut o [facility] ([facility]) glucose, urine (UA) auto 3+ negative Above high normal Gluc ose, Urine (UA) Auto JE[facility] ([facility]) urobilinogen, urine auto 0.2 mg/dL 0.0-2.0 Urobilinoge n, Urine Auto JEFF ([facility]) leukocyte esterase, urine auto negative negative Leukocyte Esterase, Urine Auto JEFF ([facility]) nitrite, urine auto negative negative Nitrite, Urine A uto JE[facility] ([facility]) blood, urine blood negative negative Blood, Urine Bloo d JE[facility] ([facility]) bilirubin, urine auto negative negative Bilirubin, Uri ne Auto JEFF ([facility]) WBC, urine auto 0 /hpf 0-3 WBC, Urine Auto AT[facility] NA ([facility]) RBC, urine auto 2 /hpf 0-3 RBC, Urine Auto ATHE NA ([facility]) hyaline cast, urine auto 0 /lpf 0-1 Hyaline Maximilian t, Urine Auto JEFF ([facility]) squamous epithelial cell ur AU 0 /hpf 0-6 Squam ous Epithelial Cell Ur AU JEFF ([facility]) bacteria, urine auto negative negative Bacteria, Urine Auto JE[facility] ([facility]) ID Date Data Source [id number] 08/09/2020 02:13:00 PM EDT JEFF ([facility]) Name Value Range Interpretation Code Description Data Becky rce(s) Supporting Document(s) specific gravity urine auto 1.002-1.035 Specifi c [place] Urine Auto JEFF ([facility]) pH,urine 5.0 units 5.0-9.0 pH,urine JEFF ([facility]) appearance, urine clear clear Appearance, Urine JEFF ([facility]) color, urine yellow yellow Color, Urine JEFF ([facility]) bilirubin, urine auto negative negative Bilirubin, Uri ne Auto JEFF ([facility]) ketone, urine auto negative negative Ketone, Urine Aut o JEFF ([facility]) protein, urine auto negative negative Protein, Urine A uto JE[facility] ([facility]) glucose, urine (UA) auto 3+ negative Above high normal Gluc ose, Urine (UA) Auto JEFF ([facility]) urobilinogen, urine auto 0.2 mg/dL 0.0-2.0 Urobilinoge n, Urine Auto JEFF ([facility]) leukocyte esterase, urine auto negative negative Leukocyte Esterase, Urine Auto JEFF ([facility]) WBC, urine auto 0 /hpf 0-3 WBC, Urine Auto ATHE NA ([facility]) nitrite, urine auto negative negative Nitrite, Urine A uto JE[facility] ([facility]) blood, urine blood negative negative Blood, Urine Bloo d JEFF ([facility]) squamous epithelial cell ur AU 0 /hpf 0-6 Squam ous Epithelial Cell Ur AU JEFF ([facility]) RBC, urine auto 2 /hpf 0-3 RBC, Urine Auto AT[facility] NA ([facility]) hyaline cast, urine auto 0 /lpf 0-1 Hyaline Maximilian t, Urine Auto JEFF ([facility]) bacteria, urine auto negative negative Bacteria, Urine Auto JE[facility] ([facility]) ID Date Data Source [id number] 08/09/2020 02:13:00 PM EDT JEFF ([facility]) Name Value Range Interpretation Code Description Data Becky rce(s) Supporting Document(s) color, urine yellow yellow Color, Urine JEFF ([facility]) specific gravity urine auto 1.002-1.035 Specifi c [place] Urine Auto JEFF ([facility]) appearance, urine clear clear Appearance, Urine JEFF ([facility]) pH,urine 5.0 units 5.0-9.0 pH,urine JE[facility] ([facility]) protein, urine auto negative negative Protein, Urine A uto JEFF ([facility]) ketone, urine auto negative negative Ketone, Urine Aut o JEFF ([facility]) glucose, urine (UA) auto 3+ negative Above high normal Gluc ose, Urine (UA) Auto JEFF ([facility]) urobilinogen, urine auto 0.2 mg/dL 0.0-2.0 Urobilinoge n, Urine Auto JEFF ([facility]) bilirubin, urine auto negative negative Bilirubin, Uri ne Auto JEFF ([facility]) RBC, urine auto 2 /hpf 0-3 RBC, Urine Auto ATHE NA ([facility]) WBC, urine auto 0 /hpf 0-3 WBC, Urine Auto ATHE NA ([facility]) leukocyte esterase, urine auto negative negative Leukocyte Esterase, Urine Auto JEFF ([facility]) blood, urine blood negative negative Blood, Urine Bloo d JE[facility] ([facility]) nitrite, urine auto negative negative Nitrite, Urine A uto JE[facility] ([facility]) hyaline cast, urine auto 0 /lpf 0-1 Hyaline Maximilian t, Urine Auto JE[facility] ([facility]) bacteria, urine auto negative negative Bacteria, Urine Auto [facility] ([facility]) squamous epithelial cell ur AU 0 /hpf 0-6 Squam ous Epithelial Cell Ur AU JEFF ([facility]) ID Date Data Source [id number] 08/09/2020 02:13:00 PM EDT JEFF ([facility]) Name Value Range Interpretation Code Description Data Becky rce(s) Supporting Document(s) pH,urine 5.0 units 5.0-9.0 pH,urine JE[facility] ([facility]) appearance, urine clear clear Appearance, Urine JE[facility] ([facility]) color, urine yellow yellow Color, Urine JEFF ([facility]) specific gravity urine auto 1.002-1.035 Specifi c [place] Urine Auto JEFF ([facility]) glucose, urine (UA) auto 3+ negative Above high normal Gluc ose, Urine (UA) Auto [facility] ([facility]) protein, urine auto negative negative Protein, Urine A uto [facility] ([facility]) ketone, urine auto negative negative Ketone, Urine Aut o [facility] ([facility]) urobilinogen, urine auto 0.2 mg/dL 0.0-2.0 Urobilinoge n, Urine Auto [facility] ([facility]) blood, urine blood negative negative Blood, Urine Bloo d JE[facility] ([facility]) leukocyte esterase, urine auto negative negative Leukocyte Esterase, Urine Auto [facility] ([facility]) bilirubin, urine auto negative negative Bilirubin, Uri ne Auto [facility] ([facility]) nitrite, urine auto negative negative Nitrite, Urine A uto [facility] ([facility]) WBC, urine auto 0 /hpf 0-3 WBC, Urine Auto [facility] NA ([facility]) hyaline cast, urine auto 0 /lpf 0-1 Hyaline Maximilian t, Urine Auto JE[facility] ([facility]) squamous epithelial cell ur AU 0 /hpf 0-6 Squam ous Epithelial Cell Ur AU [facility] ([facility]) RBC, urine auto 2 /hpf 0-3 RBC, Urine Auto ATHE NA ([facility]) bacteria, urine auto negative negative Bacteria, Urine Auto [facility] ([facility]) ID Date Data Source [id number] 08/09/2020 02:13:00 PM EDT JE[facility] ([facility]) Name Value Range Interpretation Code Description Data Becky rce(s) Supporting Document(s) appearance, urine clear clear Appearance, Urine JEFF ([facility]) color, urine yellow yellow Color, Urine JEFF ([facility]) specific gravity urine auto 1.002-1.035 Specifi c [place] Urine Auto JEFF ([facility]) glucose, urine (UA) auto 3+ negative Above high normal Gluc ose, Urine (UA) Auto [facility] ([facility]) protein, urine auto negative negative Protein, Urine A uto [facility] ([facility]) pH,urine 5.0 units 5.0-9.0 pH,urine JE[facility] ([facility]) nitrite, urine auto negative negative Nitrite, Urine A uto [facility] ([facility]) ketone, urine auto negative negative Ketone, Urine Aut o JEFF ([facility]) urobilinogen, urine auto 0.2 mg/dL 0.0-2.0 Urobilinoge n, Urine Auto [facility] ([facility]) leukocyte esterase, urine auto negative negative Leukocyte Esterase, Urine Auto [facility] ([facility]) bilirubin, urine auto negative negative Bilirubin, Uri ne Auto JEFF ([facility]) RBC, urine auto 2 /hpf 0-3 RBC, Urine Auto ATHE NA ([facility]) blood, urine blood negative negative Blood, Urine Bloo d [facility] ([facility] [facility] bacteria, urine auto negative negative Bacteria, Urine Auto JEFF ([facility]) WBC, urine auto 0 /hpf 0-3 WBC, Urine Auto ATHE NA ([facility]) squamous epithelial cell ur AU 0 /hpf 0-6 Squam ous Epithelial Cell Ur AU JEFF ([facility]) hyaline cast, urine auto 0 /lpf 0-1 Hyaline Maximilian t, Urine Auto JEFF ([facility]) ID Date Data Source [id number] 08/09/2020 02:13:00 PM EDT JEFF ([facility]) Name Value Range Interpretation Code Description Data Becky rce(s) Supporting Document(s) appearance, urine clear clear Appearance, Urine JEFF ([facility]) color, urine yellow yellow Color, Urine JEFF ([facility]) protein, urine auto negative negative Protein, Urine A uto JEFF ([facility]) pH,urine 5.0 units 5.0-9.0 pH,urine JEFF ([facility]) specific gravity urine auto 1.002-1.035 Specifi c [place] Urine Auto JEFF ([facility]) glucose, urine (UA) auto 3+ negative Above high normal Gluc ose, Urine (UA) Auto JEFF ([facility]) urobilinogen, urine auto 0.2 mg/dL 0.0-2.0 Urobilinoge n, Urine Auto JEFF ([facility]) ketone, urine auto negative negative Ketone, Urine Aut o JEFF ([facility]) bilirubin, urine auto negative negative Bilirubin, Uri ne Auto JEFF ([facility]) nitrite, urine auto negative negative Nitrite, Urine A uto JEFF ([facility]) blood, urine blood negative negative Blood, Urine Bloo d JEFF ([facility]) WBC, urine auto 0 /hpf 0-3 WBC, Urine Auto ATHE NA ([facility]) leukocyte esterase, urine auto negative negative Leukocyte Esterase, Urine Auto JEFF ([facility]) RBC, urine auto 2 /hpf 0-3 RBC, Urine Auto ATHE NA ([facility]) hyaline cast, urine auto 0 /lpf 0-1 Hyaline Maximilian t, Urine Auto JEFF ([facility]) squamous epithelial cell ur AU 0 /hpf 0-6 Squam ous Epithelial Cell Ur AU JEFF ([facility]) bacteria, urine auto negative negative Bacteria, Urine Auto JEFF ([facility]) ID Date Data Source [id number] 08/09/2020 02:13:00 PM EDT JEFF ([facility]) Name Value Range Interpretation Code Description Data Becky rce(s) Supporting Document(s) appearance, urine clear clear Appearance, Urine JEFF ([facility]) pH,urine 5.0 units 5.0-9.0 pH,urine JEFF ([facility]) specific gravity urine auto 1.002-1.035 Specifi c [place] Urine Auto JEFF ([facility]) color, urine yellow yellow Color, [facility] urobilinogen, urine auto 0.2 mg/dL 0.0-2.0 Urobilinoge n, Urine Auto JEFF ([facility]) glucose, urine (UA) auto 3+ negative Above high normal Gluc ose, Urine (UA) Auto EJFF ([facility]) ketone, urine auto negative negative Ketone, Urine Aut o JEFF ([facility]) protein, urine auto negative negative Protein, Urine A uto JEFF ([facility]) blood, urine blood negative negative Blood, Urine Bloo d EJFF ([facility]) bilirubin, urine auto negative negative Bilirubin, Uri ne Auto JEFF ([facility]) leukocyte esterase, urine auto negative negative Leukocyte Esterase, Urine Auto JEFF ([facility]) nitrite, urine auto negative negative Nitrite, Urine A uto JEFF ([facility]) bacteria, urine auto negative negative Bacteria, Urine Auto JEFF ([facility]) hyaline cast, urine auto 0 /lpf 0-1 Hyaline Maximilian t, Urine Auto JEFF ([facility]) squamous epithelial cell ur AU 0 /hpf 0-6 Squam ous Epithelial Cell Ur AU JEFF ([facility]) WBC, urine auto 0 /hpf 0-3 WBC, Urine Auto ATHE NA ([facility]) RBC, urine auto 2 /hpf 0-3 RBC, Urine Auto ATHE NA ([facility]) ID Date Data Source [id number] 08/09/2020 02:13:00 PM EDT JEFF ([facility]) Name Value Range Interpretation Code Description Data Becky rce(s) Supporting Document(s) appearance, urine clear clear Appearance, Urine JEFF ([facility]) color, urine yellow yellow Color, Urine JEFF (No [facility]) pH,urine 5.0 units 5.0-9.0 pH,urine JEFF ([facility]) protein, urine auto negative negative Protein, Urine A uto JEFF ([facility]) ketone, urine auto negative negative Ketone, Urine Aut o JEFF ([facility]) specific gravity urine auto 1.002-1.035 Specifi c [place] Urine Auto JEFF ([facility]) glucose, urine (UA) auto 3+ negative Above high normal Gluc ose, Urine (UA) Auto JEFF ([facility]) blood, urine blood negative negative Blood, Urine Bloo d JEFF ([facility]) nitrite, urine auto negative negative Nitrite, Urine A uto JEFF ([facility]) bilirubin, urine auto negative negative Bilirubin, Uri ne Auto JEFF ([facility]) urobilinogen, urine auto 0.2 mg/dL 0.0-2.0 Urobilinoge n, Urine Auto JEFF ([facility]) leukocyte esterase, urine auto negative negative Leukocyte Esterase, Urine Auto JEFF ([facility]) bacteria, urine auto negative negative Bacteria, Urine Auto JEFF ([facility]) WBC, urine auto 0 /hpf 0-3 WBC, Urine Auto ATHE NA ([facility]) RBC, urine auto 2 /hpf 0-3 RBC, Urine Auto ATHE NA ([facility]) squamous epithelial cell ur AU 0 /hpf 0-6 Squam ous Epithelial Cell Ur AU JEFF ([facility]) hyaline cast, urine auto 0 /lpf 0-1 Hyaline Maximilian t, Urine Auto JEFF ([facility]) ID Date Data Source [id number] 08/09/2020 12:40:00 PM EDT [place] ([facility]) Name Value Range Interpretation Code Description Data Becky rce(s) Supporting Document(s) Hemoglobin A1c/Hemoglobin.total in Blood 8.6 % Hemoglobin a1C [place] ([facility]) estimated average glucose 200 mg/dL 60-110 Above high norm al Estimated Average Glucose [place] ([facility]) ID Date Data Source [id number] 08/09/2020 12:40:00 PM EDT [place] ([facility]) Name Value Range Interpretation Code Description Data Becky rce(s) Supporting Document(s) acetone/ketone 1.22 mg/dL <2.81 Acetone/ketone [place] ([facility]) ID Date Data Source [id number] 08/09/2020 12:40:00 PM EDT [place] ([facility]) Name Value Range Interpretation Code Description Data Becky rce(s) Supporting Document(s) blood urea nitrogen 16 mg/dL 7-18 Blood Urea Nitro gen JEFF ([facility]) glucose, fasting 210 mg/dL 70-100 Above high normal Glucose, Fas ting JEFF ([facility]) sodium level 135 mEq/L 136-145 Below low normal Sodium Level ATHE ([facility]) glomerular filtration rate > 60.0 >60 Glomerula r Filtration Rate JEFF ([facility]) creatinine for GFR 1.03 mg/dL 0.70-1.30 Creatinine for GF R JEFF ([facility]) chloride level 101 mEq/L 98-107 Chloride Level JEFF ([facility]) potassium serum 4.0 mEq/L 3.5-5.1 Potassium Serum ATHE NA ([facility]) carbon dioxide level 28 mEq/L 21-32 Carbon Dioxide Level JEFF ([facility]) anion gap 6 mEq/L 8-16 Below low normal Anion Gap JEFF ( [facility]) calcium level 9.7 mg/dL 8.5-10.1 Calcium Level JEFF ( [facility]) ID Date Data Source [id number] 08/09/2020 12:40:00 PM EDT JEFF ([facility]) Name Value Range Interpretation Code Description Data Becky rce(s) Supporting Document(s) AST/SGOT 24 U/L 7-37 AST/SGOT JEFF ([facility]) alkaline phosphatase 101 U/L 45-117 Alkaline Phosph atase JEFF ([facility]) ALT/SGPT 39 U/L 12-78 ALT/SGPT JEFF ([facility]) bilirubin,total 0.4 mg/dL 0.2-1.0 Bilirubin,total ATHE ([facility]) total protein 7.6 gm/dL 6.4-8.2 Total Protein JEFF ( [facility]) bilirubin,direct 0.1 mg/dL 0.0-0.2 Bilirubin,direct AT [place] ([facility]) albumin/globulin ratio Albumin/globu bianca Ratio JEFF ([facility]) albumin 3.9 gm/dL 3.2-5.2 Albumin JEFF ([facility]) ID Date Data Source [id number] 08/09/2020 12:40:00 PM EDT JEFF ([facility]) Name Value Range Interpretation Code Description Data Becky rce(s) Supporting Document(s) red blood count 5.23 10 4.30-6.10 Red Blood Count ATHE NA ([facility]) white blood count 7.4 10 4.0-10.0 White Blood Count JEFF ([facility]) hemoglobin 15.5 g/dL 13.5-17.5 Hemoglobin JEFF ([facility]) hematocrit 46.0 % 42.0-52.0 Hematocrit JEFF ([facility]) mean corpuscular hemoglobin 29.6 pg 27.0-33.0 Mean Cor puscular Hemoglobin JEFF ([facility]) mean corpuscular HGB conc 33.7 g/dL 32.0-36.5 Mean Corpu scular HGB Conc JEFF ([facility]) mean corpuscular volume 88.0 fL 80.0-96.0 Mean Corpusc ular Volume JEFF ([facility]) red cell distribution width 12.5 % 11.5-14.5 Red Cell Distribution Width JEFF ([facility]) neutrophils % 60.8 % 36.0-66.0 Neutrophils % [place] ( [facility]) platelet count, automated 186 10 150-450 Platelet C ount, Automated JEFF ([facility]) lymph % 23.0 % 24.0-44.0 Below low normal Lymph % JEFF ( [facility]) mono % 7.6 % 0.0-5.0 Above high normal Esmeralda % [place] ([facility]) eos % 5.8 % 0.0-3.0 Above high normal Eos % JEFF ([facility]) neutrophils # 4.5 10 1.5-8.5 Neutrophils # [place] ( [facility]) baso % 1.0 % 0.0-1.0 Baso % JEFF ([facility]) immature granulocyte % 1.8 % 0-3.0 Immature Gran ulocyte % JEFF ([facility]) nucleated red blood cell % 0.0 % 0-0 Nucleated Red Blood Cell % JEFF ([facility]) lymph # 1.7 10 1.5-5.0 Lymph # JEFF ([facility]) eos # 0.4 10 0.0-0.5 Eos # JEFF ([facility]) mono # 0.6 10 0.0-0.8 Esmeralda # JEFF ([facility]) baso # 0.1 10 0.0-0.2 Baso # JEFF ([facility]) ID Date Data Source [id number] 08/09/2020 12:40:00 PM EDT JEFF ([facility]) Name Value Range Interpretation Code Description Data Becky rce(s) Supporting Document(s) venous pH 7.320 units 7.330-7.430 Below low normal Venous pH JEFF ([facility]) venous partial pressure O2 62.5 mmHg 30.0-50.0 Above high nor mal Venous Partial Pressure O2 JEFF ([facility]) venous total CO2 22.8 mEq/L 24.0-28.0 Below low normal Venous Total CO2 [place] ([facility]) venous partial pressure CO2 42.6 mmHg 38.0-50.0 Venous P artial Pressure CO2 JEFF ([facility]) venous base excess -2.0-2.0 Below low normal Venous Base Excess JEFF ([facility]) venous HCO3 21.5 mEq/L 23.0-27.0 Below low normal Venous HCO3 JEFF ([facility]) venous standard HCO3 20.7 mEq/L Venous Standard HCO3 JEFF ([facility]) venous O2 saturation 91.2 % 60.0-80.0 Above high normal Venous O 2 Saturation JEFF ([facility]) ID Date Data Source [id number] 08/09/2020 12:40:00 PM EDT JEFF ([facility]) Name Value Range Interpretation Code Description Data Becky rce(s) Supporting Document(s) estimated average glucose 200 mg/dL 60-110 Above high norm al Estimated Average Glucose JEFF ([facility]) Hemoglobin A1c/Hemoglobin.total in Blood 8.6 % Hemoglobin a1C JEFF ([facility]) ID Date Data Source [id number] 08/09/2020 12:40:00 PM EDT JEFF ([facility]) Name Value Range Interpretation Code Description Data Becky rce(s) Supporting Document(s) acetone/ketone 1.22 mg/dL <2.81 Acetone/ketone JEFF ([facility]) ID Date Data Source [id number] 08/09/2020 12:40:00 PM EDT JEFF ([facility]) Name Value Range Interpretation Code Description Data Becky rce(s) Supporting Document(s) creatinine for GFR 1.03 mg/dL 0.70-1.30 Creatinine for GF R JEFF ([facility]) blood urea nitrogen 16 mg/dL 7-18 Blood Urea Nitro gen JEFF ([facility]) glucose, fasting 210 mg/dL 70-100 Above high normal Glucose, Fas ting JEFF ([facility]) sodium level 135 mEq/L 136-145 Below low normal Sodium Level ATHE ([facility]) potassium serum 4.0 mEq/L 3.5-5.1 Potassium Serum ATHE ([facility]) glomerular filtration rate > 60.0 >60 Glomerula r Filtration Rate JEFF ([facility]) chloride level 101 mEq/L 98-107 Chloride Level [place] ([facility]) anion gap 6 mEq/L 8-16 Below low normal Anion Gap JEFF ( [facility]) carbon dioxide level 28 mEq/L 21-32 Carbon Dioxide Level JEFF ([facility]) calcium level 9.7 mg/dL 8.5-10.1 Calcium Level [place] ( [facility]) ID Date Data Source [id number] 08/09/2020 12:40:00 PM EDT [place] ([facility]) Name Value Range Interpretation Code Description Data Becky rce(s) Supporting Document(s) AST/SGOT 24 U/L 7-37 AST/SGOT JFEF ([facility]) ALT/SGPT 39 U/L 12-78 ALT/SGPT [place] ([facility]) bilirubin,total 0.4 mg/dL 0.2-1.0 Bilirubin,total ATHE ([facility]) alkaline phosphatase 101 U/L 45-117 Alkaline Phosph atase JEFF ([facility]) bilirubin,direct 0.1 mg/dL 0.0-0.2 Bilirubin,direct AT [place] ([facility]) total protein 7.6 gm/dL 6.4-8.2 Total Protein JEFF ( [facility]) albumin/globulin ratio Albumin/globu bianca Ratio JEFF ([facility]) albumin 3.9 gm/dL 3.2-5.2 Albumin JEFF ([facility]) ID Date Data Source [id number] 08/09/2020 12:40:00 PM EDT [place] ([facility]) Name Value Range Interpretation Code Description Data Becky rce(s) Supporting Document(s) red blood count 5.23 10 4.30-6.10 Red Blood Count ATHE ([facility]) white blood count 7.4 10 4.0-10.0 White Blood Count JEFF ([facility]) hemoglobin 15.5 g/dL 13.5-17.5 Hemoglobin JEFF ([facility]) hematocrit 46.0 % 42.0-52.0 Hematocrit JEFF ([facility]) mean corpuscular hemoglobin 29.6 pg 27.0-33.0 Mean Cor puscular Hemoglobin JEFF ([facility]) mean corpuscular volume 88.0 fL 80.0-96.0 Mean Corpusc ular Volume JEFF ([facility]) mean corpuscular HGB conc 33.7 g/dL 32.0-36.5 Mean Corpu scular HGB Conc JEFF ([facility]) red cell distribution width 12.5 % 11.5-14.5 Red Cell Distribution Width JEFF ([facility]) platelet count, automated 186 10 150-450 [facility] lymph % 23.0 % 24.0-44.0 Below low normal Lymph % JEFF ( [facility]) neutrophils % 60.8 % 36.0-66.0 Neutrophils % JEFF ( [facility]) mono % 7.6 % 0.0-5.0 Above high normal [place] % JEFF ([facility]) eos % 5.8 % 0.0-3.0 Above high normal Eos % JEFF ([facility]) immature granulocyte % 1.8 % 0-3.0 Immature Gran ulocyte % JEFF ([facility]) baso % 1.0 % 0.0-1.0 Baso % JEFF ([facility]) nucleated red blood cell % 0.0 % 0-0 Nucleated Red Blood Cell % JEFF ([facility]) neutrophils # 4.5 10 1.5-8.5 Neutrophils # JEFF ( [facility]) lymph # 1.7 10 1.5-5.0 Lymph # JEFF ([facility]) mono # 0.6 10 0.0-0.8 Es[place]da # JEFF ([facility]) baso # 0.1 10 0.0-0.2 Baso # JEFF ([facility]) eos # 0.4 10 0.0-0.5 Eos # JEFF ([facility]) ID Date Data Source [id number] 08/09/2020 12:40:00 PM EDT [place] ([facility]) Name Value Range Interpretation Code Description Data Becky rce(s) Supporting Document(s) venous pH 7.320 units 7.330-7.430 Below low normal Venous pH JEFF ([facility]) venous partial pressure CO2 42.6 mmHg 38.0-50.0 Venous P artial Pressure CO2 JE[facility] ([facility]) venous partial pressure O2 62.5 mmHg 30.0-50.0 Above high nor mal Venous Partial Pressure O2 JEFF ([facility]) venous total CO2 22.8 mEq/L 24.0-28.0 Below low normal Venous Total CO2 JEFF ([facility]) venous HCO3 21.5 mEq/L 23.0-27.0 Below low normal Venous HCO3 JEFF ([facility]) venous O2 saturation 91.2 % 60.0-80.0 Above high normal Venous O 2 Saturation JEFF ([facility]) venous base excess -2.0-2.0 Below low normal Venous Base Excess JEFF ([facility]) venous standard HCO3 20.7 mEq/L Venous Standard HCO3 JEFF ([facility]) ID Date Data Source [id number] 08/09/2020 12:40:00 PM EDT [place] ([facility]) Name Value Range Interpretation Code Description Data Becky rce(s) Supporting Document(s) Hemoglobin A1c/Hemoglobin.total in Blood 8.6 % Hemoglobin a1C [place] ([facility]) estimated average glucose 200 mg/dL 60-110 Above high norm al Estimated Average Glucose [place] ([facility]) ID Date Data Source [id number] 08/09/2020 12:40:00 PM EDT [place] ([facility]) Name Value Range Interpretation Code Description Data Becky rce(s) Supporting Document(s) acetone/ketone 1.22 mg/dL <2.81 Acetone/ketone [place] ([facility]) ID Date Data Source [id number] 08/09/2020 12:40:00 PM EDT [place] ([facility]) Name Value Range Interpretation Code Description Data Becky rce(s) Supporting Document(s) glucose, fasting 210 mg/dL 70-100 Above high normal Glucose, Fas ting JEFF ([facility]) blood urea nitrogen 16 mg/dL 7-18 Blood Urea Nitro gen JEFF ([facility]) glomerular filtration rate > 60.0 >60 Glomerula r Filtration Rate JEFF ([facility]) creatinine for GFR 1.03 mg/dL 0.70-1.30 Creatinine for GF R JEFF ([facility]) sodium level 135 mEq/L 136-145 Below low normal Sodium Level ATHE NA ([facility]) potassium serum 4.0 mEq/L 3.5-5.1 Potassium Serum ATHE NA ([facility]) chloride level 101 mEq/L 98-107 Chloride Level [place] ([facility]) anion gap 6 mEq/L 8-16 Below low normal Anion Gap JEFF ( [facility]) carbon dioxide level 28 mEq/L 21-32 Carbon Dioxide Level JEFF ([facility]) calcium level 9.7 mg/dL 8.5-10.1 Calcium Level JEFF ( [facility]) ID Date Data Source [id number] 08/09/2020 12:40:00 PM EDT [facility] ([facility]) Name Value Range Interpretation Code Description Data Becky rce(s) Supporting Document(s) ALT/SGPT 39 U/L 12-78 ALT/SGPT JEFF ([facility]) alkaline phosphatase 101 U/L 45-117 Alkaline Phosph atase JEFF ([facility]) AST/SGOT 24 U/L 7-37 AST/SGOT JEFF ([facility]) bilirubin,total 0.4 mg/dL 0.2-1.0 Bilirubin,total ATHE ([facility]) bilirubin,direct 0.1 mg/dL 0.0-0.2 Bilirubin,direct AT [facility] ([facility]) albumin 3.9 gm/dL 3.2-5.2 Albumin JEFF ([facility]) total protein 7.6 gm/dL 6.4-8.2 Total Protein JEFF ( [facility]) albumin/globulin ratio Albumin/globu bianca Ratio JEFF ([facility]) ID Date Data Source [id number] 08/09/2020 12:40:00 PM EDT JE[facility] ([facility]) Name Value Range Interpretation Code Description Data Becky rce(s) Supporting Document(s) hemoglobin 15.5 g/dL 13.5-17.5 Hemoglobin JEFF ([facility]) red blood count 5.23 10 4.30-6.10 Red Blood Count AT[facility] ([facility]) white blood count 7.4 10 4.0-10.0 White Blood Count JEFF ([facility]) mean corpuscular hemoglobin 29.6 pg 27.0-33.0 Mean Cor puscular Hemoglobin JEFF ([facility]) mean corpuscular volume 88.0 fL 80.0-96.0 Mean Corpusc ular Volume JEFF ([facility]) hematocrit 46.0 % 42.0-52.0 Hematocrit JEFF ([facility]) mean corpuscular HGB conc 33.7 g/dL 32.0-36.5 Mean Corpu scular HGB Conc JEFF ([facility]) red cell distribution width 12.5 % 11.5-14.5 Red Cell Distribution Width JEFF ([facility]) lymph % 23.0 % 24.0-44.0 Below low normal Lymph % JEFF ( [facility]) neutrophils % 60.8 % 36.0-66.0 Neutrophils % [place] ( [facility]) platelet count, automated 186 10 150-450 Platelet C ount, Automated JEFF ([facility]) eos % 5.8 % 0.0-3.0 Above high normal Eos % JEFF ([facility]) baso % 1.0 % 0.0-1.0 Baso % JEFF ([facility]) mono % 7.6 % 0.0-5.0 Above high normal [place] % JEFF ([facility]) neutrophils # 4.5 10 1.5-8.5 Neutrophils # [place] ( [facility]) nucleated red blood cell % 0.0 % 0-0 Nucleated Red Blood Cell % JEFF ([facility]) immature granulocyte % 1.8 % 0-3.0 Immature Gran ulocyte % JEFF ([facility]) eos # 0.4 10 0.0-0.5 Eos # JEFF ([facility]) lymph # 1.7 10 1.5-5.0 Lymph # JEFF ([facility]) mono # 0.6 10 0.0-0.8 Es[place]da # JEFF ([facility]) baso # 0.1 10 0.0-0.2 Baso # JEFF ([facility]) ID Date Data Source [id number] 08/09/2020 12:40:00 PM EDT [place] ([facility]) Name Value Range Interpretation Code Description Data Becky rce(s) Supporting Document(s) venous pH 7.320 units 7.330-7.430 Below low normal Venous pH JEFF ([facility]) venous partial pressure CO2 42.6 mmHg 38.0-50.0 Venous P artial Pressure CO2 [facility] ([facility]) venous total CO2 22.8 mEq/L 24.0-28.0 Below low normal Venous Total CO2 [facility] ([facility]) venous HCO3 21.5 mEq/L 23.0-27.0 Below low normal Venous HCO3 [facility] ([facility]) venous partial pressure O2 62.5 mmHg 30.0-50.0 Above high nor mal Venous Partial Pressure O2 [place] ([facility]) venous O2 saturation 91.2 % 60.0-80.0 Above high normal Venous O 2 Saturation [place] ([facility]) venous standard HCO3 20.7 mEq/L Venous Standard HCO3 [place] ([facility]) venous base excess -2.0-2.0 Below low normal Venous Base Excess [place] ([facility]) ID Date Data Source [id number] 08/09/2020 12:40:00 PM EDT [place] ([facility]) Name Value Range Interpretation Code Description Data Becky rce(s) Supporting Document(s) Hemoglobin A1c/Hemoglobin.total in Blood 8.6 % Hemoglobin a1C [place] ([facility]) estimated average glucose 200 mg/dL 60-110 Above high norm al Estimated Average Glucose [place] ([facility]) ID Date Data Source [id number] 08/09/2020 12:40:00 PM EDT [facility] ([facility]) Name Value Range Interpretation Code Description Data Becky rce(s) Supporting Document(s) acetone/ketone 1.22 mg/dL <2.81 Acetone/ketone [place] ([facility]) ID Date Data Source [id number] 08/09/2020 12:40:00 PM EDT [place] ([facility]) Name Value Range Interpretation Code Description Data Becky rce(s) Supporting Document(s) glucose, fasting 210 mg/dL 70-100 Above high normal Glucose, Fas ting JEFF ([facility]) glomerular filtration rate > 60.0 >60 Glomerula r Filtration Rate JEFF ([facility]) blood urea nitrogen 16 mg/dL 7-18 Blood Urea Nitro gen JEFF ([facility]) sodium level 135 mEq/L 136-145 Below low normal Sodium Level AT[facility] NA ([facility]) creatinine for GFR 1.03 mg/dL 0.70-1.30 Creatinine for GF R JE[facility] ([facility]) chloride level 101 mEq/L 98-107 Chloride Level [place] ([facility]) carbon dioxide level 28 mEq/L 21-32 Carbon Dioxide Level [place] ([facility]) potassium serum 4.0 mEq/L 3.5-5.1 Potassium Serum ATHE NA ([facility]) calcium level 9.7 mg/dL 8.5-10.1 Calcium Level [place] ( [facility]) anion gap 6 mEq/L 8-16 Below low normal Anion Gap [place] ( [facility]) ID Date Data Source [id number] 08/09/2020 12:40:00 PM EDT [place] ([facility]) Name Value Range Interpretation Code Description Data Becky rce(s) Supporting Document(s) AST/SGOT 24 U/L 7-37 AST/SGOT [facility] ([facility]) ALT/SGPT 39 U/L 12-78 ALT/SGPT JE[facility] ([facility]) alkaline phosphatase 101 U/L 45-117 Alkaline Phosph atase JEFF ([facility]) bilirubin,total 0.4 mg/dL 0.2-1.0 Bilirubin,total AT[facility] ([facility]) total protein 7.6 gm/dL 6.4-8.2 Total Protein [place] ( [facility]) bilirubin,direct 0.1 mg/dL 0.0-0.2 Bilirubin,direct AT [place] ([facility]) albumin 3.9 gm/dL 3.2-5.2 Albumin JEFF ([facility]) albumin/globulin ratio Albumin/globu bianca Ratio [facility] ([facility]) ID Date Data Source [id number] 08/09/2020 12:40:00 PM EDT [facility] ([facility]) Name Value Range Interpretation Code Description Data Becky rce(s) Supporting Document(s) red blood count 5.23 10 4.30-6.10 Red Blood Count ATHE NA ([facility]) white blood count 7.4 10 4.0-10.0 White Blood Count [facility] ([facility]) hemoglobin 15.5 g/dL 13.5-17.5 Hemoglobin [facility] ([facility]) mean corpuscular volume 88.0 fL 80.0-96.0 Mean Corpusc ular Volume [facility] ([facility]) hematocrit 46.0 % 42.0-52.0 Hematocrit [facility] ([facility]) red cell distribution width 12.5 % 11.5-14.5 Red Cell Distribution Width [facility] ([facility]) mean corpuscular HGB conc 33.7 g/dL 32.0-36.5 Mean Corpu scular HGB Conc [facility] ([facility]) mean corpuscular hemoglobin 29.6 pg 27.0-33.0 Mean Cor puscular Hemoglobin [facility] ([facility]) mono % 7.6 % 0.0-5.0 Above high normal Esmeralda % [facility] ([facility]) neutrophils % 60.8 % 36.0-66.0 Neutrophils % [facility] ( [facility]) lymph % 23.0 % 24.0-44.0 Below low normal Lymph % [facility] ( [facility]) platelet count, automated 186 10 150-450 Platelet C ount, Automated [facility] ([facility]) eos % 5.8 % 0.0-3.0 Above high normal Eos % [facility] ([facility]) baso % 1.0 % 0.0-1.0 Baso % [facility] ([facility]) immature granulocyte % 1.8 % 0-3.0 Immature Gran ulocyte % [facility] ([facility]) neutrophils # 4.5 10 1.5-8.5 Neutrophils # [facility] ( [facility]) nucleated red blood cell % 0.0 % 0-0 Nucleated Red Blood Cell % [facility] ([facility]) lymph # 1.7 10 1.5-5.0 Lymph # JE[facility] ([facility]) baso # 0.1 10 0.0-0.2 Baso # [facility] ([facility]) mono # 0.6 10 0.0-0.8 Esmeralda # [facility] ([facility]) eos # 0.4 10 0.0-0.5 Eos # [facility] ([facility]) ID Date Data Source [id number] 08/09/2020 12:40:00 PM EDT [place] ([facility]) Name Value Range Interpretation Code Description Data Becky rce(s) Supporting Document(s) venous pH 7.320 units 7.330-7.430 Below low normal Venous pH [facility] ([facility]) venous partial pressure CO2 42.6 mmHg 38.0-50.0 Venous P artial Pressure CO2 [facility] ([facility]) venous HCO3 21.5 mEq/L 23.0-27.0 Below low normal Venous HCO3 [facility] ([facility]) venous total CO2 22.8 mEq/L 24.0-28.0 Below low normal Venous Total CO2 [facility] ([facility]) venous partial pressure O2 62.5 mmHg 30.0-50.0 Above high nor mal Venous Partial Pressure O2 [facility] ([facility]) venous standard HCO3 20.7 mEq/L Venous Standard HCO3 [facility] ([facility]) venous base excess -2.0-2.0 Below low normal Venous Base Excess [facility] ([facility]) venous O2 saturation 91.2 % 60.0-80.0 Above high normal Venous O 2 Saturation [facility] ([facility]) ID Date Data Source [id number] 08/09/2020 12:40:00 PM EDT [facility] ([facility]) Name Value Range Interpretation Code Description Data Becky rce(s) Supporting Document(s) estimated average glucose 200 mg/dL 60-110 Above high norm al Estimated Average Glucose [place] ([facility]) Hemoglobin A1c/Hemoglobin.total in Blood 8.6 % Hemoglobin a1C [place] ([facility]) ID Date Data Source [id number] 08/09/2020 12:40:00 PM EDT [place] ([facility]) Name Value Range Interpretation Code Description Data Becky rce(s) Supporting Document(s) acetone/ketone 1.22 mg/dL <2.81 Acetone/ketone [place] ([facility]) ID Date Data Source [id number] 08/09/2020 12:40:00 PM EDT [place] ([facility]) Name Value Range Interpretation Code Description Data Becky rce(s) Supporting Document(s) creatinine for GFR 1.03 mg/dL 0.70-1.30 Creatinine for GF R [place] ([facility]) blood urea nitrogen 16 mg/dL 7-18 Blood Urea Nitro gen [place] ([facility]) glomerular filtration rate > 60.0 >60 Glomerula r Filtration Rate [place] ([facility]) glucose, fasting 210 mg/dL 70-100 Above high normal Glucose, Fas ting [facility] ([facility]) sodium level 135 mEq/L 136-145 Below low normal Sodium Level [facility] ([facility]) carbon dioxide level 28 mEq/L 21-32 Carbon Dioxide Level [place] ([facility]) potassium serum 4.0 mEq/L 3.5-5.1 Potassium Serum [facility] ([facility]) chloride level 101 mEq/L 98-107 Chloride Level [place] ([facility]) anion gap 6 mEq/L 8-16 Below low normal Anion Gap [place] ( [facility]) calcium level 9.7 mg/dL 8.5-10.1 Calcium Level [facility]) ID Date Data Source [id number] 08/09/2020 12:40:00 PM EDT [facility] ([facility]) Name Value Range Interpretation Code Description Data Becky rce(s) Supporting Document(s) ALT/SGPT 39 U/L 12-78 ALT/SGPT [facility] ([facility]) AST/SGOT 24 U/L 7-37 AST/SGOT [facility] ([facility]) bilirubin,direct 0.1 mg/dL 0.0-0.2 Bilirubin,direct AT [place] ([facility]) total protein 7.6 gm/dL 6.4-8.2 Total Protein [facility] ( [facility]) bilirubin,total 0.4 mg/dL 0.2-1.0 Bilirubin,total AT[facility] NA ([facility]) alkaline phosphatase 101 U/L 45-117 Alkaline Phosph atase [facility] ([facility]) albumin/globulin ratio Albumin/globu bianca Ratio [facility] ([facility]) albumin 3.9 gm/dL 3.2-5.2 Albumin [facility] ([facility]) ID Date Data Source [id number] 08/09/2020 12:40:00 PM EDT [facility] ([facility]) Name Value Range Interpretation Code Description Data Becky rce(s) Supporting Document(s) white blood count 7.4 10 4.0-10.0 White Blood Count [facility] ([facility]) hemoglobin 15.5 g/dL 13.5-17.5 Hemoglobin [facility] ([facility]) mean corpuscular volume 88.0 fL 80.0-96.0 Mean Corpusc ular Volume [facility] ([facility]) red blood count 5.23 10 4.30-6.10 Red Blood Count [facility] NA ([facility]) hematocrit 46.0 % 42.0-52.0 Hematocrit [facility] ([facility]) mean corpuscular HGB conc 33.7 g/dL 32.0-36.5 Mean Corpu scular HGB Conc [facility] ([facility]) mean corpuscular hemoglobin 29.6 pg 27.0-33.0 Mean Cor puscular Hemoglobin [facility] ([facility]) red cell distribution width 12.5 % 11.5-14.5 Red Cell Distribution Width [facility] ([facility]) mono % 7.6 % 0.0-5.0 Above high normal Esmeralda % [facility] ([facility]) platelet count, automated 186 10 150-450 Platelet C ount, Automated [facility] ([facility]) neutrophils % 60.8 % 36.0-66.0 Neutrophils % [facility] ( [facility]) lymph % 23.0 % 24.0-44.0 Below low normal Lymph % [place] ( [facility]) immature granulocyte % 1.8 % 0-3.0 Immature Gran ulocyte % [place] ([facility]) baso % 1.0 % 0.0-1.0 Baso % [place] ([facility]) eos % 5.8 % 0.0-3.0 Above high normal Eos % [place] ([facility]) nucleated red blood cell % 0.0 % 0-0 Nucleated Red Blood Cell % [place] ([facility]) eos # 0.4 10 0.0-0.5 Eos # [facility] ([facility]) lymph # 1.7 10 1.5-5.0 Lymph # [facility] ([facility]) neutrophils # 4.5 10 1.5-8.5 Neutrophils # [facility] ( [facility]) mono # 0.6 10 0.0-0.8 Esmeralda # [facility] ([facility]) baso # 0.1 10 0.0-0.2 Baso # [facility] ([facility]) ID Date Data Source [id number] 08/09/2020 12:40:00 PM EDT [place] ([facility]) Name Value Range Interpretation Code Description Data Becky rce(s) Supporting Document(s) venous partial pressure CO2 42.6 mmHg 38.0-50.0 Venous P artial Pressure CO2 [facility] ([facility]) venous pH 7.320 units 7.330-7.430 Below low normal Venous pH [place] ([facility]) venous total CO2 22.8 mEq/L 24.0-28.0 Below low normal Venous Total CO2 [facility] ([facility]) venous partial pressure O2 62.5 mmHg 30.0-50.0 Above high nor mal Venous Partial Pressure O2 [facility] ([facility]) venous HCO3 21.5 mEq/L 23.0-27.0 Below low normal Venous HCO3 [facility] ([facility]) venous standard HCO3 20.7 mEq/L Venous Standard HCO3 [facility] ([facility]) venous base excess -2.0-2.0 Below low normal Venous Base Excess [place] ([facility]) venous O2 saturation 91.2 % 60.0-80.0 Above high normal Venous O 2 Saturation [place] ([facility]) ID Date Data Source [id number] 08/09/2020 12:40:00 PM EDT [facility]) Name Value Range Interpretation Code Description Data Becky rce(s) Supporting Document(s) acetone/ketone 1.22 mg/dL <2.81 Acetone/ketone [facility]) ID Date Data Source [id number] 08/09/2020 12:40:00 PM EDT [facility]) Name Value Range Interpretation Code Description Data Becky rce(s) Supporting Document(s) glucose, fasting 210 mg/dL 70-100 Above high normal Glucose, Fas ting [facility] ([facility]) blood urea nitrogen 16 mg/dL 7-18 Blood Urea Nitro gen [facility] ([facility]) glomerular filtration rate > 60.0 >60 Glomerula r Filtration Rate [facility] ([facility]) creatinine for GFR 1.03 mg/dL 0.70-1.30 Creatinine for GF R [facility] ([facility]) chloride level 101 mEq/L 98-107 Chloride Level [facility] ([facility]) carbon dioxide level 28 mEq/L 21-32 Carbon Dioxide Level [facility] ([facility]) potassium serum 4.0 mEq/L 3.5-5.1 Potassium Serum [facility] NA ([facility]) sodium level 135 mEq/L 136-145 Below low normal Sodium Level [facility] ([facility]) anion gap 6 mEq/L 8-16 Below low normal Anion Gap [facility] ( [facility]) calcium level 9.7 mg/dL 8.5-10.1 Calcium Level [facility] ( [facility]) ID Date Data Source [id number] 08/09/2020 12:40:00 PM EDT [facility] ([facility]) Name Value Range Interpretation Code Description Data Becky rce(s) Supporting Document(s) AST/SGOT 24 U/L 7-37 AST/SGOT [facility] ([facility]) ALT/SGPT 39 U/L 12-78 ALT/SGPT [facility] ([facility]) bilirubin,total 0.4 mg/dL 0.2-1.0 Bilirubin,total [facility] ([facility]) total protein 7.6 gm/dL 6.4-8.2 Total Protein [facility] ( [facility]) bilirubin,direct 0.1 mg/dL 0.0-0.2 Bilirubin,direct AT [facility] ([facility]) alkaline phosphatase 101 U/L 45-117 Alkaline Phosph atase [facility] ([facility]) albumin 3.9 gm/dL 3.2-5.2 Albumin [facility] ([facility]) albumin/globulin ratio Albumin/globu bianca Ratio [facility] ([facility]) ID Date Data Source [id number] 08/09/2020 12:40:00 PM EDT [facility] ([facility]) Name Value Range Interpretation Code Description Data Becky rce(s) Supporting Document(s) white blood count 7.4 10 4.0-10.0 White Blood Count [facility] ([facility]) red blood count 5.23 10 4.30-6.10 Red Blood Count [facility] NA ([facility]) hemoglobin 15.5 g/dL 13.5-17.5 Hemoglobin [facility] ([facility]) mean corpuscular hemoglobin 29.6 pg 27.0-33.0 Mean Cor puscular Hemoglobin [facility] ([facility]) mean corpuscular volume 88.0 fL 80.0-96.0 Mean Corpusc ular Volume [facility] ([facility]) hematocrit 46.0 % 42.0-52.0 Hematocrit [facility] ([facility]) mean corpuscular HGB conc 33.7 g/dL 32.0-36.5 Mean Corpu scular HGB Conc [facility] ([facility]) platelet count, automated 186 10 150-450 Platelet C ount, Automated [facility] ([facility]) red cell distribution width 12.5 % 11.5-14.5 Red Cell Distribution Width [facility] ([facility]) neutrophils % 60.8 % 36.0-66.0 Neutrophils % [place] ( [facility]) lymph % 23.0 % 24.0-44.0 Below low normal Lymph % [place] ( [facility]) mono % 7.6 % 0.0-5.0 Above high normal [place]da % [facility] ([facility]) eos % 5.8 % 0.0-3.0 Above high normal Eos % [facility] ([facility]) baso % 1.0 % 0.0-1.0 Baso % [facility] ([facility]) immature granulocyte % 1.8 % 0-3.0 Immature Gran ulocyte % [place] ([facility]) nucleated red blood cell % 0.0 % 0-0 Nucleated Red Blood Cell % [facility] ([facility]) neutrophils # 4.5 10 1.5-8.5 Neutrophils # [facility] ( [facility]) mono # 0.6 10 0.0-0.8 Esmeralda # [facility] ([facility]) lymph # 1.7 10 1.5-5.0 Lymph # [facility] ([facility]) eos # 0.4 10 0.0-0.5 Eos # [facility] ([facility]) baso # 0.1 10 0.0-0.2 Baso # [facility] ([facility]) ID Date Data Source [id number] 08/09/2020 12:40:00 PM EDT [facility] ([facility]) Name Value Range Interpretation Code Description Data Becky rce(s) Supporting Document(s) venous pH 7.320 units 7.330-7.430 Below low normal Venous pH [facility] ([facility]) venous partial pressure CO2 42.6 mmHg 38.0-50.0 Venous P artial Pressure CO2 [facility] ([facility]) venous partial pressure O2 62.5 mmHg 30.0-50.0 Above high nor mal Venous Partial Pressure O2 [facility] ([facility]) venous total CO2 22.8 mEq/L 24.0-28.0 Below low normal Venous Total CO2 [facility] ([facility]) venous HCO3 21.5 mEq/L 23.0-27.0 Below low normal Venous HCO3 [facility] ([facility]) venous O2 saturation 91.2 % 60.0-80.0 Above high normal Venous O 2 Saturation [facility] ([facility]) venous base excess -2.0-2.0 Below low normal Venous Base Excess [facility] ([facility]) venous standard HCO3 20.7 mEq/L Venous Standard HCO3 [facility] ([facility]) ID Date Data Source [id number] 08/09/2020 12:40:00 PM EDT [facility] ([facility]) Name Value Range Interpretation Code Description Data Becky rce(s) Supporting Document(s) Hemoglobin A1c/Hemoglobin.total in Blood 8.6 % Hemoglobin a1C [facility] ([facility]) estimated average glucose 200 mg/dL 60-110 Above high norm al Estimated Average Glucose [facility] ([facility]) ID Date Data Source [id number] 08/09/2020 12:40:00 PM EDT [facility] ([facility]) Name Value Range Interpretation Code Description Data Becky rce(s) Supporting Document(s) acetone/ketone 1.22 mg/dL <2.81 Acetone/ketone [facility] ([facility]) ID Date Data Source [id number] 08/09/2020 12:40:00 PM EDT [facility] ([facility]) Name Value Range Interpretation Code Description Data Becky rce(s) Supporting Document(s) blood urea nitrogen 16 mg/dL 7-18 Blood Urea Nitro gen [facility] ([facility]) glucose, fasting 210 mg/dL 70-100 Above high normal Glucose, Fas ting [facility] ([facility]) creatinine for GFR 1.03 mg/dL 0.70-1.30 Creatinine for GF R [facility] ([facility]) potassium serum 4.0 mEq/L 3.5-5.1 Potassium Serum AT[facility] NA ([facility]) sodium level 135 mEq/L 136-145 Below low normal Sodium Level [facility] NA ([facility]) glomerular filtration rate > 60.0 >60 Glomerula r Filtration Rate [facility] ([facility]) calcium level 9.7 mg/dL 8.5-10.1 Calcium Level [facility] ( [facility]) anion gap 6 mEq/L 8-16 Below low normal Anion Gap [facility] ( [facility]) carbon dioxide level 28 mEq/L 21-32 Carbon Dioxide Level [facility] ([facility]) chloride level 101 mEq/L 98-107 Chloride Level [place] ([facility]) ID Date Data Source [id number] 08/09/2020 12:40:00 PM EDT [facility] ([facility]) Name Value Range Interpretation Code Description Data Becky rce(s) Supporting Document(s) AST/SGOT 24 U/L 7-37 AST/SGOT [facility] ([facility]) bilirubin,direct 0.1 mg/dL 0.0-0.2 Bilirubin,direct AT [facility] ([facility]) alkaline phosphatase 101 U/L 45-117 Alkaline Phosph atase [facility] ([facility]) ALT/SGPT 39 U/L 12-78 ALT/SGPT [place] ([facility]) bilirubin,total 0.4 mg/dL 0.2-1.0 Bilirubin,total [facility] ([facility]) albumin 3.9 gm/dL 3.2-5.2 Albumin [place] ([facility]) total protein 7.6 gm/dL 6.4-8.2 Total Protein [facility] ( [facility]) albumin/globulin ratio Albumin/globu bianca Ratio [facility] ([facility]) ID Date Data Source [id number] 08/09/2020 12:40:00 PM EDT [facility] ([facility]) Name Value Range Interpretation Code Description Data Becky rce(s) Supporting Document(s) white blood count 7.4 10 4.0-10.0 White Blood Count [facility] ([facility]) red blood count 5.23 10 4.30-6.10 Red Blood Count [facility] ([facility]) hematocrit 46.0 % 42.0-52.0 Hematocrit [facility] ([facility]) mean corpuscular volume 88.0 fL 80.0-96.0 Mean Corpusc ular Volume [facility] ([facility]) hemoglobin 15.5 g/dL 13.5-17.5 Hemoglobin [facility] ([facility]) mean corpuscular hemoglobin 29.6 pg 27.0-33.0 Mean Cor puscular Hemoglobin [facility] ([facility]) mean corpuscular HGB conc 33.7 g/dL 32.0-36.5 Mean Corpu scular HGB Conc [facility] ([facility]) red cell distribution width 12.5 % 11.5-14.5 Red Cell Distribution Width [facility] ([facility]) lymph % 23.0 % 24.0-44.0 Below low normal Lymph % [facility] ( [facility]) neutrophils % 60.8 % 36.0-66.0 Neutrophils % [facility] ( [facility]) platelet count, automated 186 10 150-450 Platelet C ount, Automated [facility] ([facility]) mono % 7.6 % 0.0-5.0 Above high normal [place]da % [facility] ([facility]) nucleated red blood cell % 0.0 % 0-0 Nucleated Red Blood Cell % [facility] ([facility]) baso % 1.0 % 0.0-1.0 Baso % [facility] ([facility]) immature granulocyte % 1.8 % 0-3.0 Immature Gran ulocyte % [facility] ([facility]) eos % 5.8 % 0.0-3.0 Above high normal Eos % [facility] ([facility]) lymph # 1.7 10 1.5-5.0 Lymph # [facility] ([facility]) neutrophils # 4.5 10 1.5-8.5 Neutrophils # [facility] ( [facility]) mono # 0.6 10 0.0-0.8 [place]da # [facility] ([facility]) baso # 0.1 10 0.0-0.2 Baso # [facility] ([facility]) eos # 0.4 10 0.0-0.5 Eos # [facility] ([facility]) ID Date Data Source [id number] 08/09/2020 12:40:00 PM EDT [place] ([facility]) Name Value Range Interpretation Code Description Data Becky rce(s) Supporting Document(s) venous pH 7.320 units 7.330-7.430 Below low normal Venous pH [facility] ([facility]) venous partial pressure O2 62.5 mmHg 30.0-50.0 Above high nor mal Venous Partial Pressure O2 [facility] ([facility]) venous partial pressure CO2 42.6 mmHg 38.0-50.0 Venous P artial Pressure CO2 [facility] ([facility]) venous base excess -2.0-2.0 Below low normal Venous Base Excess [facility] ([facility]) venous total CO2 22.8 mEq/L 24.0-28.0 Below low normal Venous Total CO2 [facility] ([facility]) venous HCO3 21.5 mEq/L 23.0-27.0 Below low normal Venous HCO3 [facility] ([facility]) venous O2 saturation 91.2 % 60.0-80.0 Above high normal Venous O 2 Saturation [facility] ([facility]) venous standard HCO3 20.7 mEq/L Venous Standard HCO3 [facility] ([facility]) ID Date Data Source [id number] 08/09/2020 12:40:00 PM EDT [place] ([facility]) Name Value Range Interpretation Code Description Data Becky rce(s) Supporting Document(s) Hemoglobin A1c/Hemoglobin.total in Blood 8.6 % Hemoglobin a1C [facility] ([facility]) estimated average glucose 200 mg/dL 60-110 Above high norm al Estimated Average Glucose [place] ([facility]) ID Date Data Source [id number] 08/09/2020 12:40:00 PM EDT [facility] ([facility]) Name Value Range Interpretation Code Description Data Becky rce(s) Supporting Document(s) acetone/ketone 1.22 mg/dL <2.81 Acetone/ketone [place] ([facility]) ID Date Data Source [id number] 08/09/2020 12:40:00 PM EDT [place] ([facility]) Name Value Range Interpretation Code Description Data Becky rce(s) Supporting Document(s) glucose, fasting 210 mg/dL 70-100 Above high normal Glucose, Fas ting [facility] ([facility]) blood urea nitrogen 16 mg/dL 7-18 Blood Urea Nitro gen [facility] ([facility]) sodium level 135 mEq/L 136-145 Below low normal Sodium Level [facility] NA ([facility]) glomerular filtration rate > 60.0 >60 Glomerula r Filtration Rate [facility] ([facility]) creatinine for GFR 1.03 mg/dL 0.70-1.30 Creatinine for GF R [facility] ([facility]) potassium serum 4.0 mEq/L 3.5-5.1 Potassium Serum [facility] NA ([facility]) chloride level 101 mEq/L 98-107 Chloride Level [facility] ([facility]) carbon dioxide level 28 mEq/L 21-32 Carbon Dioxide Level [facility] ([facility]) anion gap 6 mEq/L 8-16 Below low normal Anion Gap [facility] ( [facility]) calcium level 9.7 mg/dL 8.5-10.1 Calcium Level [place] ( [facility]) ID Date Data Source [id number] 08/09/2020 12:40:00 PM EDT [facility] ([facility]) Name Value Range Interpretation Code Description Data Becky rce(s) Supporting Document(s) AST/SGOT 24 U/L 7-37 AST/SGOT [facility] ([facility]) bilirubin,total 0.4 mg/dL 0.2-1.0 Bilirubin,total AT[facility] NA ([facility]) alkaline phosphatase 101 U/L 45-117 Alkaline Phosph atase [facility] ([facility]) bilirubin,direct 0.1 mg/dL 0.0-0.2 Bilirubin,direct AT [facility]) ALT/SGPT 39 U/L 12-78 ALT/SGPT E[facility] ([facility]) total protein 7.6 gm/dL 6.4-8.2 Total Protein [facility] ( [facility]) albumin 3.9 gm/dL 3.2-5.2 Albumin [facility] ([facility]) albumin/globulin ratio Albumin/globu bianca Ratio [facility] ([facility]) ID Date Data Source [id number] 08/09/2020 12:40:00 PM EDT [facility] ([facility]) Name Value Range Interpretation Code Description Data Becky rce(s) Supporting Document(s) red blood count 5.23 10 4.30-6.10 Red Blood Count [facility] NA ([facility]) white blood count 7.4 10 4.0-10.0 White Blood Count [facility] ([facility]) hemoglobin 15.5 g/dL 13.5-17.5 Hemoglobin [facility] ([facility]) mean corpuscular volume 88.0 fL 80.0-96.0 Mean Corpusc ular Volume [facility] ([facility]) mean corpuscular hemoglobin 29.6 pg 27.0-33.0 Mean Cor puscular Hemoglobin [facility] ([facility]) hematocrit 46.0 % 42.0-52.0 Hematocrit [facility] ([facility]) red cell distribution width 12.5 % 11.5-14.5 Red Cell Distribution Width [facility] ([facility]) platelet count, automated 186 10 150-450 Platelet C ount, Automated [facility] ([facility]) mean corpuscular HGB conc 33.7 g/dL 32.0-36.5 Mean Corpu scular HGB Conc [facility] ([facility]) mono % 7.6 % 0.0-5.0 Above high normal [place] % [facility] ([facility]) neutrophils % 60.8 % 36.0-66.0 Neutrophils % [facility] ( [facility]) lymph % 23.0 % 24.0-44.0 Below low normal Lymph % [facility] ( [facility]) eos % 5.8 % 0.0-3.0 Above high normal Eos % [place] ([facility]) immature granulocyte % 1.8 % 0-3.0 Immature Gran ulocyte % [facility] ([facility]) baso % 1.0 % 0.0-1.0 Baso % [facility] ([facility]) nucleated red blood cell % 0.0 % 0-0 Nucleated Red Blood Cell % [facility] ([facility]) neutrophils # 4.5 10 1.5-8.5 Neutrophils # [facility] ( [facility]) lymph # 1.7 10 1.5-5.0 Lymph # [facility] ([facility]) mono # 0.6 10 0.0-0.8 [place] # [facility] ([facility]) eos # 0.4 10 0.0-0.5 Eos # [facility] ([facility]) baso # 0.1 10 0.0-0.2 Baso # [facility] ([facility]) ID Date Data Source [id number] 08/09/2020 12:40:00 PM EDT [place] ([facility]) Name Value Range Interpretation Code Description Data Becky rce(s) Supporting Document(s) venous pH 7.320 units 7.330-7.430 Below low normal Venous pH [place] ([facility]) venous partial pressure O2 62.5 mmHg 30.0-50.0 Above high nor mal Venous Partial Pressure O2 [facility] ([facility]) venous partial pressure CO2 42.6 mmHg 38.0-50.0 Venous P artial Pressure CO2 [facility] ([facility]) venous base excess -2.0-2.0 Below low normal Venous Base Excess [facility] ([facility]) venous HCO3 21.5 mEq/L 23.0-27.0 Below low normal Venous HCO3 [facility] ([facility]) venous total CO2 22.8 mEq/L 24.0-28.0 Below low normal Venous Total CO2 [facility] ([facility]) venous standard HCO3 20.7 mEq/L Venous Standard HCO3 [place] ([facility]) venous O2 saturation 91.2 % 60.0-80.0 Above high normal Venous O 2 Saturation [place] ([facility]) ID Date Data Source [id number] 08/09/2020 12:40:00 PM EDT [place] ([facility]) Name Value Range Interpretation Code Description Data Becky rce(s) Supporting Document(s) Hemoglobin A1c/Hemoglobin.total in Blood 8.6 % Hemoglobin a1C [place] ([facility]) estimated average glucose 200 mg/dL 60-110 Above high norm al Estimated Average Glucose [place] ([facility]) ID Date Data Source [id number] 08/09/2020 12:40:00 PM EDT [place] ([facility]) Name Value Range Interpretation Code Description Data Becky rce(s) Supporting Document(s) acetone/ketone 1.22 mg/dL <2.81 Acetone/ketone [place] ([facility]) ID Date Data Source [id number] 08/09/2020 12:40:00 PM EDT [place] ([facility]) Name Value Range Interpretation Code Description Data Becky rce(s) Supporting Document(s) glucose, fasting 210 mg/dL 70-100 Above high normal Glucose, Fas ting [facility] ([facility]) sodium level 135 mEq/L 136-145 Below low normal Sodium Level [facility] ([facility]) glomerular filtration rate > 60.0 >60 Glomerula r Filtration Rate [facility] ([facility]) creatinine for GFR 1.03 mg/dL 0.70-1.30 Creatinine for GF R [facility] ([facility]) blood urea nitrogen 16 mg/dL 7-18 Blood Urea Nitro gen [facility] ([facility]) anion gap 6 mEq/L 8-16 Below low normal Anion Gap [facility] ( [facility]) chloride level 101 mEq/L 98-107 Chloride Level [facility] ([facility]) carbon dioxide level 28 mEq/L 21-32 Carbon Dioxide Level [facility] ([facility]) potassium serum 4.0 mEq/L 3.5-5.1 Potassium Serum [facility] NA ([facility]) calcium level 9.7 mg/dL 8.5-10.1 Calcium Level [facility] ( [facility]) ID Date Data Source [id number] 08/09/2020 12:40:00 PM EDT [facility] ([facility]) Name Value Range Interpretation Code Description Data Becky rce(s) Supporting Document(s) AST/SGOT 24 U/L 7-37 AST/SGOT [facility] ([facility]) ALT/SGPT 39 U/L 12-78 ALT/SGPT [facility] ([facility]) alkaline phosphatase 101 U/L 45-117 Alkaline Phosph atase [facility] ([facility]) bilirubin,total 0.4 mg/dL 0.2-1.0 Bilirubin,total AT[facility] NA ([facility]) total protein 7.6 gm/dL 6.4-8.2 Total Protein [facility] ( [facility]) albumin/globulin ratio Albumin/globu bianca Ratio [facility] ([facility]) albumin 3.9 gm/dL 3.2-5.2 Albumin [facility] ([facility]) bilirubin,direct 0.1 mg/dL 0.0-0.2 Bilirubin,direct AT [facility]) ID Date Data Source [id number] 08/09/2020 12:40:00 PM EDT [facility] ([facility]) Name Value Range Interpretation Code Description Data Becky rce(s) Supporting Document(s) red blood count 5.23 10 4.30-6.10 Red Blood Count [facility] ([facility]) white blood count 7.4 10 4.0-10.0 White Blood Count [facility] ([facility]) mean corpuscular hemoglobin 29.6 pg 27.0-33.0 Mean Cor puscular Hemoglobin [facility] ([facility]) hemoglobin 15.5 g/dL 13.5-17.5 Hemoglobin [facility] ([facility]) hematocrit 46.0 % 42.0-52.0 Hematocrit [facility] ([facility]) mean corpuscular volume 88.0 fL 80.0-96.0 Mean Corpusc ular Volume [facility] ([facility]) red cell distribution width 12.5 % 11.5-14.5 Red Cell Distribution Width [facility] ([facility]) mean corpuscular HGB conc 33.7 g/dL 32.0-36.5 Mean Corpu scular HGB Conc [facility] ([facility]) platelet count, automated 186 10 150-450 Platelet C ount, Automated [facility] ([facility]) neutrophils % 60.8 % 36.0-66.0 Neutrophils % [place] ( [facility]) mono % 7.6 % 0.0-5.0 Above high normal Esmeralda % [place] ([facility]) lymph % 23.0 % 24.0-44.0 Below low normal Lymph % [facility] ( [facility]) nucleated red blood cell % 0.0 % 0-0 Nucleated Red Blood Cell % [facility] ([facility]) eos % 5.8 % 0.0-3.0 Above high normal Eos % [place] ([facility]) immature granulocyte % 1.8 % 0-3.0 Immature Gran ulocyte % [facility] ([facility]) baso % 1.0 % 0.0-1.0 Baso % [facility] ([facility]) neutrophils # 4.5 10 1.5-8.5 Neutrophils # [facility] ( [facility]) mono # 0.6 10 0.0-0.8 Esmeralda # [facility] ([facility]) eos # 0.4 10 0.0-0.5 Eos # [facility] ([facility]) lymph # 1.7 10 1.5-5.0 Lymph # [facility] ([facility]) baso # 0.1 10 0.0-0.2 Baso # [facility] ([facility]) ID Date Data Source [id number] 08/09/2020 12:40:00 PM EDT [facility] ([facility]) Name Value Range Interpretation Code Description Data Becky rce(s) Supporting Document(s) venous pH 7.320 units 7.330-7.430 Below low normal Venous pH [facility] ([facility]) venous partial pressure O2 62.5 mmHg 30.0-50.0 Above high nor mal Venous Partial Pressure O2 [facility] ([facility]) venous partial pressure CO2 42.6 mmHg 38.0-50.0 Venous P artial Pressure CO2 [facility] ([facility]) venous base excess -2.0-2.0 Below low normal Venous Base Excess [facility] ([facility]) venous total CO2 22.8 mEq/L 24.0-28.0 Below low normal Venous Total CO2 [facility] ([facility]) venous standard HCO3 20.7 mEq/L Venous Standard HCO3 [facility] ([facility]) venous HCO3 21.5 mEq/L 23.0-27.0 Below low normal Venous HCO3 [facility] ([facility]) venous O2 saturation 91.2 % 60.0-80.0 Above high normal Venous O 2 Saturation [facility] ([facility]) ID Date Data Source [id number] 08/09/2020 12:40:00 PM EDT [facility] ([facility]) Name Value Range Interpretation Code Description Data Becky rce(s) Supporting Document(s) Hemoglobin A1c/Hemoglobin.total in Blood 8.6 % Hemoglobin a1C [facility] ([facility]) estimated average glucose 200 mg/dL 60-110 Above high norm al Estimated Average Glucose [facility] ([facility]) ID Date Data Source [id number] 08/09/2020 12:40:00 PM EDT [place] ([facility]) Name Value Range Interpretation Code Description Data Becky rce(s) Supporting Document(s) acetone/ketone 1.22 mg/dL <2.81 Acetone/ketone [facility] ([facility]) ID Date Data Source [id number] 08/09/2020 12:40:00 PM EDT [facility] ([facility]) Name Value Range Interpretation Code Description Data Becky rce(s) Supporting Document(s) glucose, fasting 210 mg/dL 70-100 Above high normal Glucose, Fas ting [facility] ([facility]) glomerular filtration rate > 60.0 >60 Glomerula r Filtration Rate [facility] ([facility]) blood urea nitrogen 16 mg/dL 7-18 Blood Urea Nitro gen [facility] ([facility]) creatinine for GFR 1.03 mg/dL 0.70-1.30 Creatinine for GF R [facility] ([facility]) carbon dioxide level 28 mEq/L 21-32 Carbon Dioxide Level [facility] ([facility]) sodium level 135 mEq/L 136-145 Below low normal Sodium Level [facility] ([facility]) chloride level 101 mEq/L 98-107 Chloride Level [place] ([facility]) potassium serum 4.0 mEq/L 3.5-5.1 Potassium Serum [facility] ([facility]) anion gap 6 mEq/L 8-16 Below low normal Anion Gap [facility] ( [facility]) calcium level 9.7 mg/dL 8.5-10.1 Calcium Level [place] ( [facility]) ID Date Data Source [id number] 08/09/2020 12:40:00 PM EDT [place] ([facility]) Name Value Range Interpretation Code Description Data Becky rce(s) Supporting Document(s) AST/SGOT 24 U/L 7-37 AST/SGOT [facility] ([facility]) ALT/SGPT 39 U/L 12-78 ALT/SGPT [facility] ([facility]) bilirubin,direct 0.1 mg/dL 0.0-0.2 Bilirubin,direct AT [facility] ([facility]) total protein 7.6 gm/dL 6.4-8.2 Total Protein [facility] ( [facility]) alkaline phosphatase 101 U/L 45-117 Alkaline Phosph atase [facility] ([facility]) bilirubin,total 0.4 mg/dL 0.2-1.0 Bilirubin,total [facility] ([facility]) albumin 3.9 gm/dL 3.2-5.2 Albumin [facility] ([facility]) albumin/globulin ratio Albumin/globu bianca Ratio [facility] ([facility]) ID Date Data Source [id number] 08/09/2020 12:40:00 PM EDT [place] ([facility]) Name Value Range Interpretation Code Description Data Becky rce(s) Supporting Document(s) red blood count 5.23 10 4.30-6.10 Red Blood Count [facility] ([facility]) hemoglobin 15.5 g/dL 13.5-17.5 Hemoglobin [facility] ([facility]) white blood count 7.4 10 4.0-10.0 White Blood Count [facility] ([facility]) mean corpuscular hemoglobin 29.6 pg 27.0-33.0 Mean Cor puscular Hemoglobin [facility] ([facility]) hematocrit 46.0 % 42.0-52.0 Hematocrit [facility] ([facility]) mean corpuscular volume 88.0 fL 80.0-96.0 Mean Corpusc ular Volume [facility] ([facility]) red cell distribution width 12.5 % 11.5-14.5 Red Cell Distribution Width [facility] ([facility]) mean corpuscular HGB conc 33.7 g/dL 32.0-36.5 Mean Corpu scular HGB Conc [facility] ([facility]) platelet count, automated 186 10 150-450 Platelet C ount, Automated [facility] ([facility]) neutrophils % 60.8 % 36.0-66.0 Neutrophils % [facility] ( [facility]) mono % 7.6 % 0.0-5.0 Above high normal Esmeralda % [facility] ([facility]) eos % 5.8 % 0.0-3.0 Above high normal Eos % [facility] ([facility]) lymph % 23.0 % 24.0-44.0 Below low normal Lymph % [facility] ( [facility]) immature granulocyte % 1.8 % 0-3.0 Immature Gran ulocyte % [facility] ([facility]) neutrophils # 4.5 10 1.5-8.5 Neutrophils # [facility] ( [facility]) nucleated red blood cell % 0.0 % 0-0 Nucleated Red Blood Cell % [facility] ([facility]) baso % 1.0 % 0.0-1.0 Baso % [facility] ([facility]) mono # 0.6 10 0.0-0.8 Esmeralda # [facility] ([facility]) baso # 0.1 10 0.0-0.2 Baso # [facility] ([facility]) eos # 0.4 10 0.0-0.5 Eos # [facility] ([facility]) lymph # 1.7 10 1.5-5.0 Lymph # [facility] ([facility]) ID Date Data Source [id number] 08/09/2020 12:40:00 PM EDT [place] ([facility]) Name Value Range Interpretation Code Description Data Becky rce(s) Supporting Document(s) venous pH 7.320 units 7.330-7.430 Below low normal Venous pH [facility] ([facility]) venous partial pressure CO2 42.6 mmHg 38.0-50.0 Venous P artial Pressure CO2 [facility] ([facility]) venous HCO3 21.5 mEq/L 23.0-27.0 Below low normal Venous HCO3 [facility] ([facility]) venous partial pressure O2 62.5 mmHg 30.0-50.0 Above high nor mal Venous Partial Pressure O2 [facility] ([facility]) venous total CO2 22.8 mEq/L 24.0-28.0 Below low normal Venous Total CO2 [facility] ([facility]) venous standard HCO3 20.7 mEq/L Venous Standard HCO3 [facility] ([facility]) venous base excess -2.0-2.0 Below low normal Venous Base Excess [facility] ([facility]) venous O2 saturation 91.2 % 60.0-80.0 Above high normal Venous O 2 Saturation [facility] ([facility]) ID Date Data Source [id number] 08/09/2020 12:40:00 PM EDT [place] ([facility]) Name Value Range Interpretation Code Description Data Becky rce(s) Supporting Document(s) Hemoglobin A1c/Hemoglobin.total in Blood 8.6 % Hemoglobin a1C [place] ([facility]) estimated average glucose 200 mg/dL 60-110 Above high norm al Estimated Average Glucose [place] ([facility]) ID Date Data Source [id number] 08/09/2020 12:40:00 PM EDT [facility] ([facility]) Name Value Range Interpretation Code Description Data Becky rce(s) Supporting Document(s) acetone/ketone 1.22 mg/dL <2.81 Acetone/ketone [place] ([facility]) ID Date Data Source [id number] 08/09/2020 12:40:00 PM EDT [place] ([facility]) Name Value Range Interpretation Code Description Data Becky rce(s) Supporting Document(s) glucose, fasting 210 mg/dL 70-100 Above high normal Glucose, Fas ting [facility] ([facility]) sodium level 135 mEq/L 136-145 Below low normal Sodium Level [facility] NA ([facility]) creatinine for GFR 1.03 mg/dL 0.70-1.30 Creatinine for GF R [facility] ([facility]) blood urea nitrogen 16 mg/dL 7-18 Blood Urea Nitro gen [facility] ([facility]) glomerular filtration rate > 60.0 >60 Glomerula r Filtration Rate [facility] ([facility]) calcium level 9.7 mg/dL 8.5-10.1 Calcium Level [facility] ( [facility]) carbon dioxide level 28 mEq/L 21-32 Carbon Dioxide Level [facility] ([facility]) anion gap 6 mEq/L 8-16 Below low normal Anion Gap [facility] ( [facility]) potassium serum 4.0 mEq/L 3.5-5.1 Potassium Serum [facility] ([facility]) chloride level 101 mEq/L 98-107 Chloride Level [facility] ([facility]) ID Date Data Source [id number] 08/09/2020 12:40:00 PM EDT [facility] ([facility]) Name Value Range Interpretation Code Description Data Becky rce(s) Supporting Document(s) alkaline phosphatase 101 U/L 45-117 Alkaline Phosph atase [facility] ([facility]) ALT/SGPT 39 U/L 12-78 ALT/SGPT [facility] ([facility]) bilirubin,total 0.4 mg/dL 0.2-1.0 Bilirubin,total [facility] NA ([facility]) AST/SGOT 24 U/L 7-37 AST/SGOT [facility] ([facility]) albumin 3.9 gm/dL 3.2-5.2 Albumin [facility] ([facility]) albumin/globulin ratio Albumin/globu bianca Ratio [facility] ([facility]) total protein 7.6 gm/dL 6.4-8.2 Total Protein [facility] ( [facility]) bilirubin,direct 0.1 mg/dL 0.0-0.2 Bilirubin,direct AT [facility] ([facility]) ID Date Data Source [id number] 08/09/2020 12:40:00 PM EDT [facility] ([facility]) Name Value Range Interpretation Code Description Data Becky rce(s) Supporting Document(s) red blood count 5.23 10 4.30-6.10 Red Blood Count [facility] ([facility]) white blood count 7.4 10 4.0-10.0 White Blood Count [facility] ([facility]) mean corpuscular volume 88.0 fL 80.0-96.0 Mean Corpusc ular Volume [facility] ([facility]) hematocrit 46.0 % 42.0-52.0 Hematocrit [facility] ([facility]) hemoglobin 15.5 g/dL 13.5-17.5 Hemoglobin [facility] ([facility]) mean corpuscular HGB conc 33.7 g/dL 32.0-36.5 Mean Corpu scular HGB Conc [facility] ([facility]) platelet count, automated 186 10 150-450 Platelet C ount, Automated [facility] ([facility]) mean corpuscular hemoglobin 29.6 pg 27.0-33.0 Mean Cor puscular Hemoglobin [facility] ([facility]) red cell distribution width 12.5 % 11.5-14.5 Red Cell Distribution Width [facility] ([facility]) mono % 7.6 % 0.0-5.0 Above high normal Esmeralda % [facility] ([facility]) eos % 5.8 % 0.0-3.0 Above high normal Eos % [facility] ([facility]) neutrophils % 60.8 % 36.0-66.0 Neutrophils % [facility] ( [facility]) lymph % 23.0 % 24.0-44.0 Below low normal Lymph % [place] ( [facility]) nucleated red blood cell % 0.0 % 0-0 Nucleated Red Blood Cell % [facility] ([facility]) immature granulocyte % 1.8 % 0-3.0 Immature Gran ulocyte % [facility] ([facility]) baso % 1.0 % 0.0-1.0 Baso % [facility] ([facility]) mono # 0.6 10 0.0-0.8 Esmeralda # [facility] ([facility]) eos # 0.4 10 0.0-0.5 Eos # [facility] ([facility]) neutrophils # 4.5 10 1.5-8.5 Neutrophils # [facility] ( [facility]) lymph # 1.7 10 1.5-5.0 Lymph # [facility] ([facility]) baso # 0.1 10 0.0-0.2 Baso # [facility] ([facility]) ID Date Data Source [id number] 08/09/2020 12:40:00 PM EDT [facility] ([facility]) Name Value Range Interpretation Code Description Data Becky rce(s) Supporting Document(s) venous partial pressure CO2 42.6 mmHg 38.0-50.0 Venous P artial Pressure CO2 [facility] ([facility]) venous pH 7.320 units 7.330-7.430 Below low normal Venous pH [facility] ([facility]) venous total CO2 22.8 mEq/L 24.0-28.0 Below low normal Venous Total CO2 [facility] ([facility]) venous base excess -2.0-2.0 Below low normal Venous Base Excess [place] ([facility]) venous partial pressure O2 62.5 mmHg 30.0-50.0 Above high nor mal Venous Partial Pressure O2 [facility] ([facility]) venous HCO3 21.5 mEq/L 23.0-27.0 Below low normal Venous HCO3 [place] ([facility]) venous standard HCO3 20.7 mEq/L Venous Standard HCO3 [facility] ([facility]) venous O2 saturation 91.2 % 60.0-80.0 Above high normal Venous O 2 Saturation [place] ([facility]) ID Date Data Source [id number] 08/09/2020 12:40:00 PM EDT [place] ([facility]) Name Value Range Interpretation Code Description Data Becky rce(s) Supporting Document(s) estimated average glucose 200 mg/dL 60-110 Above high norm al Estimated Average Glucose [facility] ([facility]) Hemoglobin A1c/Hemoglobin.total in Blood 8.6 % Hemoglobin a1C [place] ([facility]) ID Date Data Source [id number] 08/09/2020 12:40:00 PM EDT [facility] ([facility]) Name Value Range Interpretation Code Description Data Becky rce(s) Supporting Document(s) acetone/ketone 1.22 mg/dL <2.81 Acetone/ketone [facility]) ID Date Data Source [id number] 08/09/2020 12:40:00 PM EDT [place] ([facility]) Name Value Range Interpretation Code Description Data Becky rce(s) Supporting Document(s) glucose, fasting 210 mg/dL 70-100 Above high normal Glucose, Fas ting [place] ([facility]) glomerular filtration rate > 60.0 >60 Glomerula r Filtration Rate [facility] ([facility]) sodium level 135 mEq/L 136-145 Below low normal Sodium Level [facility] ([facility]) blood urea nitrogen 16 mg/dL 7-18 Blood Urea Nitro gen [facility] ([facility]) creatinine for GFR 1.03 mg/dL 0.70-1.30 Creatinine for GF R [place] ([facility]) potassium serum 4.0 mEq/L 3.5-5.1 Potassium Serum [facility] ([facility]) calcium level 9.7 mg/dL 8.5-10.1 Calcium Level [place] ( [facility]) anion gap 6 mEq/L 8-16 Below low normal Anion Gap [place] ( [facility]) chloride level 101 mEq/L 98-107 Chloride Level [place] ([facility]) carbon dioxide level 28 mEq/L 21-32 Carbon Dioxide Level [place] ([facility]) ID Date Data Source [id number] 08/09/2020 12:40:00 PM EDT [place] ([facility]) Name Value Range Interpretation Code Description Data Becky rce(s) Supporting Document(s) AST/SGOT 24 U/L 7-37 AST/SGOT [place] ([facility]) ALT/SGPT 39 U/L 12-78 ALT/SGPT [place] ([facility]) alkaline phosphatase 101 U/L 45-117 Alkaline Phosph atase [place] ([facility]) albumin 3.9 gm/dL 3.2-5.2 Albumin [place] ([facility]) bilirubin,direct 0.1 mg/dL 0.0-0.2 Bilirubin,direct AT [facility] ([facility]) total protein 7.6 gm/dL 6.4-8.2 Total Protein [facility] ( [facility]) bilirubin,total 0.4 mg/dL 0.2-1.0 Bilirubin,total [facility] ([facility]) albumin/globulin ratio Albumin/globu bianca Ratio [facility] ([facility]) ID Date Data Source [id number] 08/09/2020 12:40:00 PM EDT [facility] ([facility]) Name Value Range Interpretation Code Description Data Becky rce(s) Supporting Document(s) red blood count 5.23 10 4.30-6.10 Red Blood Count [facility] NA ([facility]) hemoglobin 15.5 g/dL 13.5-17.5 Hemoglobin [facility] ([facility]) white blood count 7.4 10 4.0-10.0 White Blood Count [facility] ([facility]) mean corpuscular HGB conc 33.7 g/dL 32.0-36.5 Mean Corpu scular HGB Conc [facility] ([facility]) hematocrit 46.0 % 42.0-52.0 Hematocrit [facility] ([facility]) mean corpuscular hemoglobin 29.6 pg 27.0-33.0 Mean Cor puscular Hemoglobin [facility] ([facility]) mean corpuscular volume 88.0 fL 80.0-96.0 Mean Corpusc ular Volume [facility] ([facility]) neutrophils % 60.8 % 36.0-66.0 Neutrophils % [facility] ( [facility]) platelet count, automated 186 10 150-450 Platelet C ount, Automated [facility] ([facility]) red cell distribution width 12.5 % 11.5-14.5 Red Cell Distribution Width [facility] ([facility]) mono % 7.6 % 0.0-5.0 Above high normal Esmeralda % [facility] ([facility]) eos % 5.8 % 0.0-3.0 Above high normal Eos % [facility] ([facility]) lymph % 23.0 % 24.0-44.0 Below low normal Lymph % [facility] ( [facility]) baso % 1.0 % 0.0-1.0 Baso % [facility] ([facility]) lymph # 1.7 10 1.5-5.0 Lymph # [facility] ([facility]) neutrophils # 4.5 10 1.5-8.5 Neutrophils # [facility] ( [facility]) nucleated red blood cell % 0.0 % 0-0 Nucleated Red Blood Cell % [facility] ([facility]) immature granulocyte % 1.8 % 0-3.0 Immature Gran ulocyte % [facility] ([facility]) baso # 0.1 10 0.0-0.2 Baso # [facility] ([facility]) eos # 0.4 10 0.0-0.5 Eos # [facility] ([facility]) mono # 0.6 10 0.0-0.8 Esmeralda # [facility] ([facility]) ID Date Data Source [id number] 08/09/2020 12:40:00 PM EDT [place] ([facility]) Name Value Range Interpretation Code Description Data Becky rce(s) Supporting Document(s) venous pH 7.320 units 7.330-7.430 Below low normal Venous pH [facility] ([facility]) venous partial pressure O2 62.5 mmHg 30.0-50.0 Above high nor mal Venous Partial Pressure O2 [facility] ([facility]) venous partial pressure CO2 42.6 mmHg 38.0-50.0 Venous P artial Pressure CO2 [facility] ([facility]) venous base excess -2.0-2.0 Below low normal Venous Base Excess [facility] ([facility]) venous HCO3 21.5 mEq/L 23.0-27.0 Below low normal Venous HCO3 [facility] ([facility]) venous total CO2 22.8 mEq/L 24.0-28.0 Below low normal Venous Total CO2 [facility] ([facility]) venous O2 saturation 91.2 % 60.0-80.0 Above high normal Venous O 2 Saturation [facility] ([facility]) venous standard HCO3 20.7 mEq/L Venous Standard HCO3 [facility] ([facility]) ID Date Data Source [id number] 08/09/2020 12:40:00 PM EDT [place] ([facility]) Name Value Range Interpretation Code Description Data Becky rce(s) Supporting Document(s) Hemoglobin A1c/Hemoglobin.total in Blood 8.6 % Hemoglobin a1C [place] ([facility]) estimated average glucose 200 mg/dL 60-110 Above high norm al Estimated Average Glucose [place] ([facility]) ID Date Data Source [id number] 08/09/2020 12:40:00 PM EDT [facility] ([facility]) Name Value Range Interpretation Code Description Data Becky rce(s) Supporting Document(s) acetone/ketone 1.22 mg/dL <2.81 Acetone/ketone [place] ([facility]) ID Date Data Source [id number] 08/09/2020 12:40:00 PM EDT [place] ([facility]) Name Value Range Interpretation Code Description Data Becky rce(s) Supporting Document(s) creatinine for GFR 1.03 mg/dL 0.70-1.30 Creatinine for GF R [facility] ([facility]) glucose, fasting 210 mg/dL 70-100 Above high normal Glucose, Fas ting [facility] ([facility]) blood urea nitrogen 16 mg/dL 7-18 Blood Urea Nitro gen [facility] ([facility]) sodium level 135 mEq/L 136-145 Below low normal Sodium Level [facility] ([facility]) glomerular filtration rate > 60.0 >60 Glomerula r Filtration Rate [facility] ([facility]) chloride level 101 mEq/L 98-107 Chloride Level [facility] ([facility]) potassium serum 4.0 mEq/L 3.5-5.1 Potassium Serum [facility] NA ([facility]) anion gap 6 mEq/L 8-16 Below low normal Anion Gap [facility] ( [facility]) carbon dioxide level 28 mEq/L 21-32 Carbon Dioxide Level [facility] ([facility]) calcium level 9.7 mg/dL 8.5-10.1 Calcium Level [facility] ( [facility]) ID Date Data Source [id number] 08/09/2020 12:40:00 PM EDT [facility] ([facility]) Name Value Range Interpretation Code Description Data Becky rce(s) Supporting Document(s) AST/SGOT 24 U/L 7-37 AST/SGOT [facility] ([facility]) ALT/SGPT 39 U/L 12-78 ALT/SGPT [facility] ([facility]) bilirubin,direct 0.1 mg/dL 0.0-0.2 Bilirubin,direct AT [facility] ([facility]) alkaline phosphatase 101 U/L 45-117 Alkaline Phosph atase [facility] ([facility]) total protein 7.6 gm/dL 6.4-8.2 Total Protein [facility] ( [facility]) bilirubin,total 0.4 mg/dL 0.2-1.0 Bilirubin,total ATHE NA ([facility]) albumin/globulin ratio Albumin/globu bianca Ratio [facility] ([facility]) albumin 3.9 gm/dL 3.2-5.2 Albumin [facility] ([facility]) ID Date Data Source [id number] 08/09/2020 12:40:00 PM EDT [facility] ([facility]) Name Value Range Interpretation Code Description Data Becky rce(s) Supporting Document(s) white blood count 7.4 10 4.0-10.0 White Blood Count [facility] ([facility]) hematocrit 46.0 % 42.0-52.0 Hematocrit [facility] ([facility]) red blood count 5.23 10 4.30-6.10 Red Blood Count AT[facility] NA ([facility]) hemoglobin 15.5 g/dL 13.5-17.5 Hemoglobin [facility] ([facility]) mean corpuscular hemoglobin 29.6 pg 27.0-33.0 Mean Cor puscular Hemoglobin [facility] ([facility]) mean corpuscular volume 88.0 fL 80.0-96.0 Mean Corpusc ular Volume [facility] ([facility]) mean corpuscular HGB conc 33.7 g/dL 32.0-36.5 Mean Corpu scular HGB Conc [facility] ([facility]) red cell distribution width 12.5 % 11.5-14.5 Red Cell Distribution Width [facility] ([facility]) platelet count, automated 186 10 150-450 Platelet C ount, Automated [facility] ([facility]) neutrophils % 60.8 % 36.0-66.0 Neutrophils % [facility] ( [facility]) mono % 7.6 % 0.0-5.0 Above high normal Esmeralda % [facility] ([facility]) baso % 1.0 % 0.0-1.0 Baso % [facility] ([facility]) eos % 5.8 % 0.0-3.0 Above high normal Eos % [facility] ([facility]) lymph % 23.0 % 24.0-44.0 Below low normal Lymph % [facility] ( [facility]) immature granulocyte % 1.8 % 0-3.0 Immature Gran ulocyte % [facility] ([facility]) neutrophils # 4.5 10 1.5-8.5 Neutrophils # JEFF ( [facility]) nucleated red blood cell % 0.0 % 0-0 Nucleated Red Blood Cell % [facility] ([facility]) lymph # 1.7 10 1.5-5.0 Lymph # JE[facility] ([facility]) mono # 0.6 10 0.0-0.8 Esmeralda # JEFF ([facility]) eos # 0.4 10 0.0-0.5 Eos # [facility] ([facility]) baso # 0.1 10 0.0-0.2 Baso # [facility] ([facility]) ID Date Data Source [id number] 08/09/2020 12:40:00 PM EDT [facility] ([facility]) Name Value Range Interpretation Code Description Data Becky rce(s) Supporting Document(s) venous pH 7.320 units 7.330-7.430 Below low normal Venous pH JE[facility] ([facility]) venous partial pressure O2 62.5 mmHg 30.0-50.0 Above high nor mal Venous Partial Pressure O2 [facility] ([facility]) venous partial pressure CO2 42.6 mmHg 38.0-50.0 Venous P artial Pressure CO2 [facility] ([facility]) venous total CO2 22.8 mEq/L 24.0-28.0 Below low normal Venous Total CO2 [facility] ([facility]) venous base excess -2.0-2.0 Below low normal Venous Base Excess [facility] ([facility]) venous HCO3 21.5 mEq/L 23.0-27.0 Below low normal Venous HCO3 [place] ([facility]) venous O2 saturation 91.2 % 60.0-80.0 Above high normal Venous O 2 Saturation [place] ([facility]) venous standard HCO3 20.7 mEq/L Venous Standard HCO3 [place] ([facility]) ID Date Data Source [id number] 08/09/2020 12:40:00 PM EDT [place] ([facility]) Name Value Range Interpretation Code Description Data Becky rce(s) Supporting Document(s) Hemoglobin A1c/Hemoglobin.total in Blood 8.6 % Hemoglobin a1C [place] ([facility]) estimated average glucose 200 mg/dL 60-110 Above high norm al Estimated Average Glucose [place] ([facility]) ID Date Data Source [id number] 08/09/2020 12:40:00 PM EDT [place] ([facility]) Name Value Range Interpretation Code Description Data Becky rce(s) Supporting Document(s) acetone/ketone 1.22 mg/dL <2.81 Acetone/ketone [place] ([facility]) ID Date Data Source [id number] 08/09/2020 12:40:00 PM EDT [place] ([facility]) Name Value Range Interpretation Code Description Data Becky rce(s) Supporting Document(s) glucose, fasting 210 mg/dL 70-100 Above high normal Glucose, Fas ting [facility] ([facility]) blood urea nitrogen 16 mg/dL 7-18 Blood Urea Nitro gen [facility] ([facility]) glomerular filtration rate > 60.0 >60 Glomerula r Filtration Rate [facility] ([facility]) creatinine for GFR 1.03 mg/dL 0.70-1.30 Creatinine for GF R JE[facility] ([facility]) sodium level 135 mEq/L 136-145 Below low normal Sodium Level [facility] NA ([facility]) potassium serum 4.0 mEq/L 3.5-5.1 Potassium Serum [facility] ([facility]) anion gap 6 mEq/L 8-16 Below low normal Anion Gap [facility] ( [facility]) carbon dioxide level 28 mEq/L 21-32 Carbon Dioxide Level [facility] ([facility]) chloride level 101 mEq/L 98-107 Chloride Level [facility] ([facility]) calcium level 9.7 mg/dL 8.5-10.1 Calcium Level [facility] ( [facility]) ID Date Data Source [id number] 08/09/2020 12:40:00 PM EDT [facility] ([facility]) Name Value Range Interpretation Code Description Data Becky rce(s) Supporting Document(s) AST/SGOT 24 U/L 7-37 AST/SGOT [facility] ([facility]) bilirubin,total 0.4 mg/dL 0.2-1.0 Bilirubin,total [facility] ([facility]) ALT/SGPT 39 U/L 12-78 ALT/SGPT [facility] ([facility]) alkaline phosphatase 101 U/L 45-117 Alkaline Phosph atase [facility] ([facility]) bilirubin,direct 0.1 mg/dL 0.0-0.2 Bilirubin,direct AT [place] ([facility]) total protein 7.6 gm/dL 6.4-8.2 Total Protein [facility] ( [facility]) albumin 3.9 gm/dL 3.2-5.2 Albumin [facility] ([facility]) albumin/globulin ratio Albumin/globu bianca Ratio [facility] ([facility]) ID Date Data Source [id number] 08/09/2020 12:40:00 PM EDT [facility] ([facility]) Name Value Range Interpretation Code Description Data Becky rce(s) Supporting Document(s) white blood count 7.4 10 4.0-10.0 White Blood Count [facility] ([facility]) red blood count 5.23 10 4.30-6.10 Red Blood Count [facility] ([facility]) mean corpuscular volume 88.0 fL 80.0-96.0 Mean Corpusc ular Volume [facility] ([facility]) hematocrit 46.0 % 42.0-52.0 Hematocrit [facility] ([facility]) hemoglobin 15.5 g/dL 13.5-17.5 Hemoglobin [facility] ([facility]) mean corpuscular hemoglobin 29.6 pg 27.0-33.0 Mean Cor puscular Hemoglobin [facility] ([facility]) mean corpuscular HGB conc 33.7 g/dL 32.0-36.5 Mean Corpu scular HGB Conc [facility] ([facility]) red cell distribution width 12.5 % 11.5-14.5 Red Cell Distribution Width [facility] ([facility]) lymph % 23.0 % 24.0-44.0 Below low normal Lymph % [place] ( [facility]) neutrophils % 60.8 % 36.0-66.0 Neutrophils % [place] ( [facility]) platelet count, automated 186 10 150-450 Platelet C ount, Automated [facility] ([facility]) immature granulocyte % 1.8 % 0-3.0 Immature Gran ulocyte % [facility] ([facility]) eos % 5.8 % 0.0-3.0 Above high normal Eos % [facility] ([facility]) baso % 1.0 % 0.0-1.0 Baso % [facility] ([facility]) mono % 7.6 % 0.0-5.0 Above high normal Esmeralda % [facility] ([facility]) lymph # 1.7 10 1.5-5.0 Lymph # [facility] ([facility]) neutrophils # 4.5 10 1.5-8.5 Neutrophils # [facility] ( [facility]) nucleated red blood cell % 0.0 % 0-0 Nucleated Red Blood Cell % [facility] ([facility]) baso # 0.1 10 0.0-0.2 Baso # [facility] ([facility]) eos # 0.4 10 0.0-0.5 Eos # [facility] ([facility]) mono # 0.6 10 0.0-0.8 Esmeralda # [facility] ([facility]) ID Date Data Source [id number] 08/09/2020 12:40:00 PM EDT [facility] ([facility]) Name Value Range Interpretation Code Description Data Becky rce(s) Supporting Document(s) venous pH 7.320 units 7.330-7.430 Below low normal Venous pH [place] ([facility]) venous partial pressure CO2 42.6 mmHg 38.0-50.0 Venous P artial Pressure CO2 [facility] ([facility]) venous partial pressure O2 62.5 mmHg 30.0-50.0 Above high nor mal Venous Partial Pressure O2 [place] ([facility]) venous base excess -2.0-2.0 Below low normal Venous Base Excess [facility] ([facility]) venous HCO3 21.5 mEq/L 23.0-27.0 Below low normal Venous HCO3 [facility] ([facility]) venous total CO2 22.8 mEq/L 24.0-28.0 Below low normal Venous Total CO2 [facility] ([facility]) venous O2 saturation 91.2 % 60.0-80.0 Above high normal Venous O 2 Saturation [facility] ([facility]) venous standard HCO3 20.7 mEq/L Venous Standard HCO3 [facility] ([facility]) ID Date Data Source [id number] 08/09/2020 12:40:00 PM EDT [facility] ([facility]) Name Value Range Interpretation Code Description Data Becky rce(s) Supporting Document(s) estimated average glucose 200 mg/dL 60-110 Above high norm al Estimated Average Glucose [facility] ([facility]) Hemoglobin A1c/Hemoglobin.total in Blood 8.6 % Hemoglobin a1C [facility] ([facility]) ID Date Data Source [id number] 08/09/2020 12:40:00 PM EDT [facility] ([facility]) Name Value Range Interpretation Code Description Data Becky rce(s) Supporting Document(s) acetone/ketone 1.22 mg/dL <2.81 Acetone/ketone [place] ([facility]) ID Date Data Source [id number] 08/09/2020 12:40:00 PM EDT [place] ([facility]) Name Value Range Interpretation Code Description Data Becky rce(s) Supporting Document(s) creatinine for GFR 1.03 mg/dL 0.70-1.30 Creatinine for GF R [place] ([facility]) glucose, fasting 210 mg/dL 70-100 Above high normal Glucose, Fas ting [facility] ([facility]) glomerular filtration rate > 60.0 >60 Glomerula r Filtration Rate [facility] ([facility]) blood urea nitrogen 16 mg/dL 7-18 Blood Urea Nitro gen [facility] ([facility]) chloride level 101 mEq/L 98-107 Chloride Level [place] ([facility]) potassium serum 4.0 mEq/L 3.5-5.1 Potassium Serum AT[facility] NA ([facility]) sodium level 135 mEq/L 136-145 Below low normal Sodium Level AT[facility] NA ([facility]) anion gap 6 mEq/L 8-16 Below low normal Anion Gap [place] ( [facility]) calcium level 9.7 mg/dL 8.5-10.1 Calcium Level JE[facility] ( [facility]) carbon dioxide level 28 mEq/L 21-32 Carbon Dioxide Level [facility] ([facility]) ID Date Data Source [id number] 08/09/2020 12:40:00 PM EDT [place] ([facility]) Name Value Range Interpretation Code Description Data Becky rce(s) Supporting Document(s) AST/SGOT 24 U/L 7-37 AST/SGOT [facility] ([facility]) bilirubin,total 0.4 mg/dL 0.2-1.0 Bilirubin,total ATHE NA ([facility]) alkaline phosphatase 101 U/L 45-117 Alkaline Phosph atase [facility] ([facility]) ALT/SGPT 39 U/L 12-78 ALT/SGPT [facility] ([facility]) albumin 3.9 gm/dL 3.2-5.2 Albumin [facility] ([facility]) bilirubin,direct 0.1 mg/dL 0.0-0.2 Bilirubin,direct AT [place] ([facility]) albumin/globulin ratio Albumin/globu bianca Ratio [facility] ([facility]) total protein 7.6 gm/dL 6.4-8.2 Total Protein [facility] ( [facility]) ID Date Data Source [id number] 08/09/2020 12:40:00 PM EDT [facility] ([facility]) Name Value Range Interpretation Code Description Data Becky rce(s) Supporting Document(s) white blood count 7.4 10 4.0-10.0 White Blood Count [facility] ([facility]) red blood count 5.23 10 4.30-6.10 Red Blood Count [facility] ([facility]) mean corpuscular volume 88.0 fL 80.0-96.0 Mean Corpusc ular Volume [facility] ([facility]) hemoglobin 15.5 g/dL 13.5-17.5 Hemoglobin [facility] ([facility]) hematocrit 46.0 % 42.0-52.0 Hematocrit [facility] ([facility]) mean corpuscular HGB conc 33.7 g/dL 32.0-36.5 Mean Corpu scular HGB Conc [facility] ([facility]) red cell distribution width 12.5 % 11.5-14.5 Red Cell Distribution Width [facility] ([facility]) mean corpuscular hemoglobin 29.6 pg 27.0-33.0 Mean Cor puscular Hemoglobin [facility] ([facility]) platelet count, automated 186 10 150-450 Platelet C ount, Automated [facility] ([facility]) lymph % 23.0 % 24.0-44.0 Below low normal Lymph % [facility] ( [facility]) neutrophils % 60.8 % 36.0-66.0 Neutrophils % [facility] ( [facility]) immature granulocyte % 1.8 % 0-3.0 Immature Gran ulocyte % [facility] ([facility]) eos % 5.8 % 0.0-3.0 Above high normal Eos % [facility] ([facility]) mono % 7.6 % 0.0-5.0 Above high normal [place]meralda % [facility] ([facility]) baso % 1.0 % 0.0-1.0 Baso % [facility] ([facility]) lymph # 1.7 10 1.5-5.0 Lymph # [facility] ([facility]) nucleated red blood cell % 0.0 % 0-0 Nucleated Red Blood Cell % [facility] ([facility]) neutrophils # 4.5 10 1.5-8.5 Neutrophils # [facility] ( [facility]) eos # 0.4 10 0.0-0.5 Eos # [facility] ([facility]) mono # 0.6 10 0.0-0.8 Esmeralda # [facility] ([facility]) baso # 0.1 10 0.0-0.2 Baso # [facility] ([facility]) ID Date Data Source [id number] 08/09/2020 12:40:00 PM EDT [place] ([facility]) Name Value Range Interpretation Code Description Data Becky rce(s) Supporting Document(s) venous pH 7.320 units 7.330-7.430 Below low normal Venous pH [place] ([facility]) venous partial pressure CO2 42.6 mmHg 38.0-50.0 Venous P artial Pressure CO2 [place] ([facility]) venous partial pressure O2 62.5 mmHg 30.0-50.0 Above high nor mal Venous Partial Pressure O2 [place] ([facility]) venous total CO2 22.8 mEq/L 24.0-28.0 Below low normal Venous Total CO2 [facility] ([facility]) venous base excess -2.0-2.0 Below low normal Venous Base Excess [place] ([facility]) venous HCO3 21.5 mEq/L 23.0-27.0 Below low normal Venous HCO3 [place] ([facility]) venous O2 saturation 91.2 % 60.0-80.0 Above high normal Venous O 2 Saturation [place] ([facility]) venous standard HCO3 20.7 mEq/L Venous Standard HCO3 [place] ([facility]) ID Date Data Source [id number] 08/09/2020 12:40:00 PM EDT [facility]) Name Value Range Interpretation Code Description Data Becky rce(s) Supporting Document(s) Hemoglobin A1c/Hemoglobin.total in Blood 8.6 % Hemoglobin a1C [place] ([facility]) estimated average glucose 200 mg/dL 60-110 Above high norm al Estimated Average Glucose [place] ([facility]) ID Date Data Source [id number] 08/09/2020 12:40:00 PM EDT [place] ([facility]) Name Value Range Interpretation Code Description Data Becky rce(s) Supporting Document(s) acetone/ketone 1.22 mg/dL <2.81 Acetone/ketone [place] ([facility]) ID Date Data Source [id number] 08/09/2020 12:40:00 PM EDT [place] ([facility]) Name Value Range Interpretation Code Description Data Becky rce(s) Supporting Document(s) glucose, fasting 210 mg/dL 70-100 Above high normal Glucose, Fas ting [place] ([facility]) glomerular filtration rate > 60.0 >60 Glomerula r Filtration Rate [place] ([facility]) blood urea nitrogen 16 mg/dL 7-18 Blood Urea Nitro gen [place] ([facility]) creatinine for GFR 1.03 mg/dL 0.70-1.30 Creatinine for GF R [place] ([facility]) potassium serum 4.0 mEq/L 3.5-5.1 Potassium Serum [facility] NA ([facility]) carbon dioxide level 28 mEq/L 21-32 Carbon Dioxide Level [facility] ([facility]) chloride level 101 mEq/L 98-107 Chloride Level [facility] ([facility]) sodium level 135 mEq/L 136-145 Below low normal Sodium Level [facility] NA ([facility]) calcium level 9.7 mg/dL 8.5-10.1 Calcium Level [facility] ( [facility]) anion gap 6 mEq/L 8-16 Below low normal Anion Gap [facility] ( [facility]) ID Date Data Source [id number] 08/09/2020 12:40:00 PM EDT [facility] ([facility]) Name Value Range Interpretation Code Description Data Becky rce(s) Supporting Document(s) AST/SGOT 24 U/L 7-37 AST/SGOT [facility] ([facility]) alkaline phosphatase 101 U/L 45-117 Alkaline Phosph atase [facility] ([facility]) ALT/SGPT 39 U/L 12-78 ALT/SGPT [facility] ([facility]) bilirubin,direct 0.1 mg/dL 0.0-0.2 Bilirubin,direct AT [place] ([facility]) bilirubin,total 0.4 mg/dL 0.2-1.0 Bilirubin,total [facility] ([facility]) total protein 7.6 gm/dL 6.4-8.2 Total Protein [facility] ( [facility]) albumin/globulin ratio Albumin/globu bianca Ratio [facility] ([facility]) albumin 3.9 gm/dL 3.2-5.2 Albumin [facility] ([facility]) ID Date Data Source [id number] 08/09/2020 12:40:00 PM EDT [facility] ([facility]) Name Value Range Interpretation Code Description Data Becky rce(s) Supporting Document(s) red blood count 5.23 10 4.30-6.10 Red Blood Count [facility] ([facility]) white blood count 7.4 10 4.0-10.0 White Blood Count [facility] ([facility]) mean corpuscular volume 88.0 fL 80.0-96.0 Mean Corpusc ular Volume [facility] ([facility]) hemoglobin 15.5 g/dL 13.5-17.5 Hemoglobin [facility] ([facility]) hematocrit 46.0 % 42.0-52.0 Hematocrit [facility] ([facility]) red cell distribution width 12.5 % 11.5-14.5 Red Cell Distribution Width [facility] ([facility]) mean corpuscular HGB conc 33.7 g/dL 32.0-36.5 Mean Corpu scular HGB Conc [facility] ([facility]) mean corpuscular hemoglobin 29.6 pg 27.0-33.0 Mean Cor puscular Hemoglobin [facility] ([facility]) platelet count, automated 186 10 150-450 Platelet C ount, Automated [facility] ([facility]) lymph % 23.0 % 24.0-44.0 Below low normal Lymph % [facility] ( [facility]) neutrophils % 60.8 % 36.0-66.0 Neutrophils % [facility] ( [facility]) mono % 7.6 % 0.0-5.0 Above high normal [place]da % [place] ([facility]) immature granulocyte % 1.8 % 0-3.0 Immature Gran ulocyte % [facility] ([facility]) eos % 5.8 % 0.0-3.0 Above high normal Eos % [facility] ([facility]) baso % 1.0 % 0.0-1.0 Baso % [facility] ([facility]) lymph # 1.7 10 1.5-5.0 Lymph # [facility] ([facility]) neutrophils # 4.5 10 1.5-8.5 Neutrophils # [facility] ( [facility]) nucleated red blood cell % 0.0 % 0-0 Nucleated Red Blood Cell % [facility] ([facility]) mono # 0.6 10 0.0-0.8 Esmer[place]da # [facility] ([facility]) baso # 0.1 10 0.0-0.2 Baso # [facility] ([facility]) eos # 0.4 10 0.0-0.5 Eos # [facility] ([facility]) ID Date Data Source [id number] 08/09/2020 12:40:00 PM EDT [facility] ([facility]) Name Value Range Interpretation Code Description Data Becky rce(s) Supporting Document(s) venous partial pressure CO2 42.6 mmHg 38.0-50.0 Venous P artial Pressure CO2 [facility] ([facility]) venous pH 7.320 units 7.330-7.430 Below low normal Venous pH [place] ([facility]) venous partial pressure O2 62.5 mmHg 30.0-50.0 Above high nor mal Venous Partial Pressure O2 [facility] ([facility]) venous total CO2 22.8 mEq/L 24.0-28.0 Below low normal Venous Total CO2 [place] ([facility]) venous base excess -2.0-2.0 Below low normal Venous Base Excess [facility] ([facility]) venous standard HCO3 20.7 mEq/L Venous Standard HCO3 [facility] ([facility]) venous HCO3 21.5 mEq/L 23.0-27.0 Below low normal Venous HCO3 [place] ([facility]) venous O2 saturation 91.2 % 60.0-80.0 Above high normal Venous O 2 Saturation [place] ([facility]) ID Date Data Source [id number] 08/09/2020 12:40:00 PM EDT [facility] ([facility]) Name Value Range Interpretation Code Description Data Becky rce(s) Supporting Document(s) Hemoglobin A1c/Hemoglobin.total in Blood 8.6 % Hemoglobin a1C [facility] ([facility]) estimated average glucose 200 mg/dL 60-110 Above high norm al Estimated Average Glucose [place] ([facility]) ID Date Data Source [id number] 08/09/2020 12:40:00 PM EDT [facility] ([facility]) Name Value Range Interpretation Code Description Data Becky rce(s) Supporting Document(s) Hemoglobin A1c/Hemoglobin.total in Blood 8.6 % Hemoglobin a1C [facility] ([facility]) estimated average glucose 200 mg/dL 60-110 Above high norm al Estimated Average Glucose [place] ([facility]) ID Date Data Source [id number] 08/09/2020 12:40:00 PM EDT [facility] ([facility]) Name Value Range Interpretation Code Description Data Becky rce(s) Supporting Document(s) acetone/ketone 1.22 mg/dL <2.81 Acetone/ketone [place] ([facility]) ID Date Data Source [id number] 08/09/2020 12:40:00 PM EDT [place] ([facility]) Name Value Range Interpretation Code Description Data Becky rce(s) Supporting Document(s) glucose, fasting 210 mg/dL 70-100 Above high normal Glucose, Fas ting [facility] ([facility]) sodium level 135 mEq/L 136-145 Below low normal Sodium Level [facility] NA ([facility]) blood urea nitrogen 16 mg/dL 7-18 Blood Urea Nitro gen [facility] ([facility]) creatinine for GFR 1.03 mg/dL 0.70-1.30 Creatinine for GF R [facility] ([facility]) glomerular filtration rate > 60.0 >60 Glomerula r Filtration Rate [facility] ([facility]) carbon dioxide level 28 mEq/L 21-32 Carbon Dioxide Level [facility] ([facility]) chloride level 101 mEq/L 98-107 Chloride Level [facility] ([facility]) potassium serum 4.0 mEq/L 3.5-5.1 Potassium Serum [facility] NA ([facility]) anion gap 6 mEq/L 8-16 Below low normal Anion Gap [facility] ( [facility]) calcium level 9.7 mg/dL 8.5-10.1 Calcium Level [place] ( [facility]) ID Date Data Source [id number] 08/09/2020 12:40:00 PM EDT [facility] ([facility]) Name Value Range Interpretation Code Description Data Becky rce(s) Supporting Document(s) alkaline phosphatase 101 U/L 45-117 Alkaline Phosph atase [facility] ([facility]) ALT/SGPT 39 U/L 12-78 ALT/SGPT [facility] ([facility]) AST/SGOT 24 U/L 7-37 AST/SGOT [facility] ([facility]) bilirubin,total 0.4 mg/dL 0.2-1.0 Bilirubin,total ATHE NA ([facility]) bilirubin,direct 0.1 mg/dL 0.0-0.2 Bilirubin,direct AT [place] ([facility]) total protein 7.6 gm/dL 6.4-8.2 Total Protein [facility] ( [facility]) albumin 3.9 gm/dL 3.2-5.2 Albumin [facility] ([facility]) albumin/globulin ratio Albumin/globu bianca Ratio [facility] ([facility]) ID Date Data Source [id number] 08/09/2020 12:40:00 PM EDT [facility] ([facility]) Name Value Range Interpretation Code Description Data Becky rce(s) Supporting Document(s) white blood count 7.4 10 4.0-10.0 White Blood Count [facility] ([facility]) red blood count 5.23 10 4.30-6.10 Red Blood Count AT[facility] NA ([facility]) hematocrit 46.0 % 42.0-52.0 Hematocrit [facility] ([facility]) hemoglobin 15.5 g/dL 13.5-17.5 Hemoglobin [facility] ([facility]) mean corpuscular volume 88.0 fL 80.0-96.0 Mean Corpusc ular Volume [facility] ([facility]) mean corpuscular hemoglobin 29.6 pg 27.0-33.0 Mean Cor puscular Hemoglobin [facility] ([facility]) mean corpuscular HGB conc 33.7 g/dL 32.0-36.5 Mean Corpu scular HGB Conc [facility] ([facility]) platelet count, automated 186 10 150-450 Platelet C ount, Automated [facility] ([facility]) red cell distribution width 12.5 % 11.5-14.5 Red Cell Distribution Width [facility] ([facility]) lymph % 23.0 % 24.0-44.0 Below low normal Lymph % [facility] ( [facility]) neutrophils % 60.8 % 36.0-66.0 Neutrophils % [facility] ( [facility]) mono % 7.6 % 0.0-5.0 Above high normal [place] % [facility] ([facility]) baso % 1.0 % 0.0-1.0 Baso % [place] ([facility]) eos % 5.8 % 0.0-3.0 Above high normal Eos % [place] ([facility]) immature granulocyte % 1.8 % 0-3.0 Immature Gran ulocyte % [place] ([facility]) nucleated red blood cell % 0.0 % 0-0 Nucleated Red Blood Cell % [place] ([facility]) neutrophils # 4.5 10 1.5-8.5 Neutrophils # [facility] ( [facility]) lymph # 1.7 10 1.5-5.0 Lymph # [facility] ([facility]) mono # 0.6 10 0.0-0.8 Esmer[place]da # [facility] ([facility]) eos # 0.4 10 0.0-0.5 Eos # [facility] ([facility]) baso # 0.1 10 0.0-0.2 Baso # [facility] ([facility]) ID Date Data Source [id number] 08/09/2020 12:40:00 PM EDT [place] ([facility]) Name Value Range Interpretation Code Description Data Becky rce(s) Supporting Document(s) venous pH 7.320 units 7.330-7.430 Below low normal Venous pH [facility] ([facility]) venous partial pressure CO2 42.6 mmHg 38.0-50.0 Venous P artial Pressure CO2 [place] ([facility]) venous partial pressure O2 62.5 mmHg 30.0-50.0 Above high nor mal Venous Partial Pressure O2 [facility] ([facility]) venous base excess -2.0-2.0 Below low normal Venous Base Excess [place] ([facility]) venous HCO3 21.5 mEq/L 23.0-27.0 Below low normal Venous HCO3 [place] ([facility]) venous total CO2 22.8 mEq/L 24.0-28.0 Below low normal Venous Total CO2 [place] ([facility]) venous O2 saturation 91.2 % 60.0-80.0 Above high normal Venous O 2 Saturation [place] ([facility]) venous standard HCO3 20.7 mEq/L Venous Standard HCO3 [place] ([facility]) ID Date Data Source [id number] 08/09/2020 11:49:00 AM EDT [facility]) Name Value Range Interpretation Code Description Data Becky rce(s) Supporting Document(s) bedside glucose 233 mg/dL 70-105 Above high normal Bedside Gluco se [facility]) ID Date Data Source [id number] 08/09/2020 11:49:00 AM EDT [facility]) Name Value Range Interpretation Code Description Data Becky rce(s) Supporting Document(s) bedside glucose 233 mg/dL 70-105 Above high normal Bedside Gluco se [facility]) ID Date Data Source [id number] 08/09/2020 11:49:00 AM EDT [facility]) Name Value Range Interpretation Code Description Data Becky rce(s) Supporting Document(s) bedside glucose 233 mg/dL 70-105 Above high normal Bedside Gluco se [facility]) ID Date Data Source [id number] 08/09/2020 11:49:00 AM EDT [facility]) Name Value Range Interpretation Code Description Data Becky rce(s) Supporting Document(s) bedside glucose 233 mg/dL 70-105 Above high normal Bedside Gluco se [place] ([facility]) ID Date Data Source [id number] 08/09/2020 11:49:00 AM EDT [facility]) Name Value Range Interpretation Code Description Data Becky rce(s) Supporting Document(s) bedside glucose 233 mg/dL 70-105 Above high normal Bedside Gluco se JEFF ([facility]) ID Date Data Source [id number] 08/09/2020 11:49:00 AM EDT [facility]) Name Value Range Interpretation Code Description Data Becky rce(s) Supporting Document(s) bedside glucose 233 mg/dL 70-105 Above high normal Bedside Gluco se [place] ([facility]) ID Date Data Source [id number] 08/09/2020 11:49:00 AM EDT [facility]) Name Value Range Interpretation Code Description Data Becky rce(s) Supporting Document(s) bedside glucose 233 mg/dL 70-105 Above high [facility] Date Data Source [id number] 08/09/2020 11:49:00 AM EDT [facility]) Name Value Range Interpretation Code Description Data Becky rce(s) Supporting Document(s) bedside glucose 233 mg/dL 70-105 Above high normal Bedside Gluco se [facility]) ID Date Data Source [id number] 08/09/2020 11:49:00 AM EDT [facility]) Name Value Range Interpretation Code Description Data Becky rce(s) Supporting Document(s) bedside glucose 233 mg/dL 70-105 Above high normal Bedside Gluco se [facility]) ID Date Data Source [id number] 08/09/2020 11:49:00 AM EDT [facility]) Name Value Range Interpretation Code Description Data Becky rce(s) Supporting Document(s) bedside glucose 233 mg/dL 70-105 Above high normal Bedside Gluco se [place] ([facility]) ID Date Data Source [id number] 08/09/2020 11:49:00 AM EDT [facility]) Name Value Range Interpretation Code Description Data Becky rce(s) Supporting Document(s) bedside glucose 233 mg/dL 70-105 Above high normal Bedside Gluco se [facility]) ID Date Data Source [id number] 08/09/2020 11:49:00 AM EDT [facility]) Name Value Range Interpretation Code Description Data Becky rce(s) Supporting Document(s) bedside glucose 233 mg/dL 70-105 Above high normal Bedside Gluco se [facility]) ID Date Data Source [id number] 08/09/2020 11:49:00 AM EDT [facility]) Name Value Range Interpretation Code Description Data Becky rce(s) Supporting Document(s) bedside glucose 233 mg/dL 70-105 Above high normal Bedside Gluco se [facility]) ID Date Data Source [id number] 08/09/2020 11:49:00 AM EDT [facility]) Name Value Range Interpretation Code Description Data Becky rce(s) Supporting Document(s) bedside glucose 233 mg/dL 70-105 Above high normal Bedside Gluco se [facility]) ID Date Data Source [id number] 08/09/2020 11:49:00 AM EDT [facility]) Name Value Range Interpretation Code Description Data Becky rce(s) Supporting Document(s) bedside glucose 233 mg/dL 70-105 Above high normal Bedside Gluco se [facility]) ID Date Data Source [id number] 08/09/2020 11:49:00 AM EDT [facility]) Name Value Range Interpretation Code Description Data Becky rce(s) Supporting Document(s) bedside glucose 233 mg/dL 70-105 Above high normal Bedside Gluco se [facility]) ID Date Data Source [id number] 08/09/2020 11:49:00 AM EDT [facility]) Name Value Range Interpretation Code Description Data Becky rce(s) Supporting Document(s) bedside glucose 233 mg/dL 70-105 Above high normal Bedside Gluco se [facility]) ID Date Data Source [id number] 08/09/2020 12:00:00 AM EDT [facility]) Name Value Range Interpretation Code Description Data Becky rce(s) Supporting Document(s) ID Date Data Source [id number] 07/28/2020 01:20:20 PM EDT [facility] [...] during this visit, including review of any [id number]-wmftkhv medications, herbal therapies, and/or supplements.Allergy ReviewAllergy List [...] Plan Problems:Assessed:Type 2 diabetes mellitus without complications (SDD20-K70.9) Assessment: Instructions: Suboptimal control.Increase Basaglar from 20 [...] MG ORAL TABLET EXTENDED RELEASEVITAMIN D (ERGOCALCIFEROL) 47748 UNIT ORAL CAPSULEMedication Changes:Added: METFORMIN HCL ER [...] (Moderate)Orders:Adult - Ofc Vst, EST, Level III [CPT-77471] COMP METABOLIC PANEL [CPT-43279] HgBA1c [CPT-79418] LIPID PANEL [CPT-17098] TSH [CPT-45021] T-4 free [CPT-96725] Name Value Range Interpretation Code Description Data Becky rce(s) Supporting Document(s) Procedure Social History Code Duration Value Status Description Data Source(s ) Smoking 07/02/2021 12:00:00 AM EDT Unknown if ever smoked comp leted Unknown if ever smoked [facility] ([facility]) Smoking 06/14/2021 12:00:00 AM EDT Unknown if ever smoked comp leted Unknown if ever smoked [facility] ([facility]) Smoking 05/31/2021 12:00:00 AM EDT Unknown if ever smoked comp leted Unknown if ever smoked [facility] ([facility]) Smoking 05/30/2021 12:00:00 AM EDT Unknown if ever smoked comp leted Unknown if ever smoked [facility] ([facility]) Smoking 05/01/2021 12:00:00 AM EDT Unknown if ever smoked comp leted Unknown if ever smoked [facility] ([facility]) Smoking 03/26/2021 12:00:00 AM EDT Unknown if ever smoked comp leted Unknown if ever smoked [facility] ([facility]) Smoking 02/26/2021 12:00:00 AM EDT Unknown if ever smoked comp leted Unknown if ever smoked [facility] ([facility]) Smoking 02/07/2021 12:00:00 AM EDT Unknown if ever smoked comp leted Unknown if ever smoked [facility] ([facility]) Smoking 01/18/2021 12:00:00 AM EDT Unknown if ever smoked comp leted Unknown if ever smoked [facility] ([facility]) Smoking 12/28/2020 12:00:00 AM EDT Unknown if ever smoked comp leted Unknown if ever smoked [facility] ([facility]) Smoking 12/11/2020 12:00:00 AM EST Unknown if ever smoked comp leted Unknown if ever smoked [facility] ([facility]) Smoking 12/07/2020 12:00:00 AM EST Unknown if ever smoked comp leted Unknown if ever smoked [facility] ([facility]) Smoking 11/07/2020 12:00:00 AM EST Unknown if ever smoked comp leted Unknown if ever smoked [facility] ([facility]) Smoking 10/25/2020 12:00:00 AM EST Unknown if ever smoked comp leted Unknown if ever smoked [facility] ([facility]) Smoking 10/20/2020 12:00:00 AM EST Unknown if ever smoked comp leted Unknown if ever smoked [facility] ([facility]) Smoking 09/28/2020 12:00:00 AM EST Unknown if ever smoked comp leted Unknown if ever smoked [facility] ([facility]) Smoking 09/21/2020 12:00:00 AM EST Unknown if ever smoked comp leted Unknown if ever smoked [facility] ([facility]) Smoking 09/11/2020 12:00:00 AM EST Unknown if ever smoked comp leted Unknown if ever smoked [facility] ([facility]) Smoking 08/24/2020 12:00:00 AM EST Unknown if ever smoked comp leted Unknown if ever smoked [facility] ([facility]) Smoking 08/17/2020 12:00:00 AM EST Unknown if ever smoked comp leted Unknown if ever smoked [facility] ([facility]) Smoking 07/25/2020 12:00:00 AM EDT Unknown if ever smoked comp leted Unknown if ever smoked [facility] ([facility]) Smoking 07/20/2020 12:00:00 AM EDT Unknown if ever smoked comp leted Unknown if ever smoked [facility] ([facility]) Smoking 07/06/2020 12:00:00 AM EDT Unknown if ever smoked comp leted Unknown if ever smoked [facility] ([facility]) Vital Signs ID Date Data Source UNK Name Value Range Interpretation Code Description Data Source(s) Diastolic blood pressure 78 mm[Hg] 78 mm[Hg] JEFF ([facility]) Body height 68 [in_i] 68 [in_i] JEFF ([facility]) Body mass index (BMI) [Ratio] 37.9 kg/m2 37.9 k g/m2 JEFF ([facility]) Systolic blood pressure 109 mm[Hg] 109 mm[Hg] A THENA ([facility]) Body weight 3992 [oz_av] 3992 [oz_av] JEFF ([facility]) Diastolic blood pressure 90 mm[Hg] 90 mm[Hg] JEFF ([facility]) Body height 68 [in_i] 68 [in_i] JEFF ([facility]) Body mass index (BMI) [Ratio] 38.9 kg/m2 38.9 k g/m2 JEFF ([facility]) Systolic blood pressure 135 mm[Hg] 135 mm[Hg] A THENA ([facility]) Body weight 4096 [oz_av] 4096 [oz_av] JEFF ([facility]) Diastolic blood pressure 90 mm[Hg] 90 mm[Hg] JEFF ([facility]) Body height 68 [in_i] 68 [in_i] JEFF ([facility]) Body mass index (BMI) [Ratio] 38.9 kg/m2 38.9 k g/m2 JEFF ([facility]) Systolic blood pressure 135 mm[Hg] 135 mm[Hg] [facility] Body weight 4096 [oz_av] 4096 [oz_av] JEFF ([facility]) Diastolic blood pressure 94 mm[Hg] 94 mm[Hg] JEFF ([facility]) Body height 68 [in_i] 68 [in_i] JEFF ([facility]) Body mass index (BMI) [Ratio] 39.4 kg/m2 39.4 k g/m2 JEFF ([facility]) Systolic blood pressure 135 mm[Hg] 135 mm[Hg] A THENA ([facility]) Body weight 4150 [oz_av] 4150 [oz_av] JEFF ([facility]) Diastolic blood pressure 94 mm[Hg] 94 mm[Hg] JEFF ([facility]) Body height 68 [in_i] 68 [in_i] JEFF ([facility]) Body mass index (BMI) [Ratio] 39.4 kg/m2 39.4 k g/m2 JEFF ([facility]) Systolic blood pressure 135 mm[Hg] 135 mm[Hg] A THENA ([facility]) Body weight 4150 [oz_av] 4150 [oz_av] JEFF ([facility]) Diastolic blood pressure 94 mm[Hg] 94 mm[Hg] JEFF ([facility]) Body height 68 [in_i] 68 [in_i] JEFF ([facility]) Body mass index (BMI) [Ratio] 39.4 kg/m2 39.4 k g/m2 JEFF ([facility]) Systolic blood pressure 135 mm[Hg] 135 mm[Hg] A THENA ([facility]) Body weight 4150 [oz_av] 4150 [oz_av] JEFF ([facility]) Diastolic blood pressure 88 mm[Hg] 88 mm[Hg] JEFF ([facility]) Body height 68 [in_i] 68 [in_i] JEFF ([facility]) Body mass index (BMI) [Ratio] 39.4 kg/m2 39.4 k g/m2 JEFF ([facility]) Systolic blood pressure 129 mm[Hg] 129 mm[Hg] [facility] Body weight 4150 [oz_av] 4150 [oz_av] JEFF ([facility]) Body mass index (BMI) [Ratio] 39.4 kg/m2 39.4 k g/m2 JEFF ([facility]) Diastolic blood pressure 88 mm[Hg] 88 mm[Hg] JEFF ([facility]) Body height 68 [in_i] 68 [in_i] JEFF ([facility]) Body weight 4150 [oz_av] 4150 [oz_av] JEFF ([facility]) Systolic blood pressure 129 mm[Hg] 129 mm[Hg] [facility] Diastolic blood pressure 88 mm[Hg] 88 mm[Hg] JEFF ([facility]) Body height 68 [in_i] 68 [in_i] JEFF ([facility]) Body mass index (BMI) [Ratio] 39.4 kg/m2 39.4 k g/m2 JEFF ([facility]) Systolic blood pressure 129 mm[Hg] 129 mm[Hg] A THENA ([facility]) Body weight 4150 [oz_av] 4150 [oz_av] JEFF ([facility]) Diastolic blood pressure 88 mm[Hg] 88 mm[Hg] JEFF ([facility]) Body height 68 [in_i] 68 [in_i] JEFF ([facility]) Body mass index (BMI) [Ratio] 39.4 kg/m2 39.4 k g/m2 JEFF ([facility]) Systolic blood pressure 129 mm[Hg] 129 mm[Hg] A HARISA ([facility]) Body weight 4150 [oz_av] 4150 [oz_av] JEFF ([facility]) Diastolic blood pressure 88 mm[Hg] 88 mm[Hg] JEFF ([facility]) Body height 68 [in_i] 68 [in_i] JEFF ([facility]) Body mass index (BMI) [Ratio] 39.4 kg/m2 39.4 k g/m2 JEFF ([facility]) Systolic blood pressure 129 mm[Hg] 129 mm[Hg] A HARISA ([facility]) Body weight 4150 [oz_av] 4150 [oz_av] JEFF ([facility]) Diastolic blood pressure 88 mm[Hg] 88 mm[Hg] JEFF ([facility]) Body height 68 [in_i] 68 [in_i] JEFF ([facility]) Body mass index (BMI) [Ratio] 39.4 kg/m2 39.4 k g/m2 JEFF ([facility]) Systolic blood pressure 129 mm[Hg] 129 mm[Hg] A HARISA ([facility]) Body weight 4150 [oz_av] 4150 [oz_av] JEFF ([facility]) Body weight 172.00 [lb_av] 172.00 [lb_av] MEDEN T ([facility] Systolic blood pressure 123 mm[Hg] 123 mm[Hg] M EDENT ([facility] Diastolic blood pressure 82 mm[Hg] 82 mm[Hg] MEDENT ([facility] Heart rate 85 /min 85 /min MED[facility] ([facility] Diastolic blood pressure 82 mm[Hg] 82 mm[Hg] JEFF ([facility]) Body height 68 [in_i] 68 [in_i] JEFF ([facility]) Body mass index (BMI) [Ratio] 39.4 kg/m2 39.4 k g/m2 JEFF ([facility]) Systolic blood pressure 123 mm[Hg] 123 mm[Hg] [facility] Body weight 4150 [oz_av] 4150 [oz_av] JEFF ([facility]) Diastolic blood pressure 82 mm[Hg] 82 mm[Hg] JEFF ([facility]) Body height 68 [in_i] 68 [in_i] JEFF ([facility]) Body mass index (BMI) [Ratio] 39.4 kg/m2 39.4 k g/m2 JEFF ([facility]) Systolic blood pressure 123 mm[Hg] 123 mm[Hg] A [facility] ([facility]) Body weight 4150 [oz_av] 4150 [oz_av] JEFF ([facility]) Diastolic blood pressure 82 mm[Hg] 82 mm[Hg] JEFF ([facility]) Body height 68 [in_i] 68 [in_i] JEFF ([facility]) Body mass index (BMI) [Ratio] 39.4 kg/m2 39.4 k g/m2 JEFF ([facility]) Systolic blood pressure 123 mm[Hg] 123 mm[Hg] A [facility] ([facility]) Body weight 4150 [oz_av] 4150 [oz_av] JEFF ([facility]) Diastolic blood pressure 82 mm[Hg] 82 mm[Hg] JEFF ([facility]) Body height 68 [in_i] 68 [in_i] JEFF ([facility]) Body mass index (BMI) [Ratio] 39.4 kg/m2 39.4 k g/m2 JEFF ([facility]) Systolic blood pressure 123 mm[Hg] 123 mm[Hg] [facility] Body weight 4150 [oz_av] 4150 [oz_av] JEFF ([facility]) Systolic blood pressure 123 mm[Hg] 123 mm[Hg] A THENA ([facility]) Body weight 4150 [oz_av] 4150 [oz_av] JEFF ([facility]) Diastolic blood pressure 82 mm[Hg] 82 mm[Hg] EJFF ([facility]) Body height 68 [in_i] 68 [in_i] JEFF ([facility]) Body mass index (BMI) [Ratio] 39.4 kg/m2 39.4 k g/m2 JEFF ([facility]) Diastolic blood pressure 82 mm[Hg] 82 mm[Hg] JEFF ([facility]) Body height 68 [in_i] 68 [in_i] JEFF ([facility]) Body mass index (BMI) [Ratio] 39.4 kg/m2 39.4 k g/m2 JEFF ([facility]) Systolic blood pressure 123 mm[Hg] 123 mm[Hg] A THENA ([facility]) Body weight 4150 [oz_av] 4150 [oz_av] JEFF ([facility]) Body height 68 [in_i] 68 [in_i] JEFF ([facility]) Body mass index (BMI) [Ratio] 39.4 kg/m2 39.4 k g/m2 JEFF ([facility]) Systolic blood pressure 123 mm[Hg] 123 mm[Hg] A THENA ([facility]) Body weight 4150 [oz_av] 4150 [oz_av] JEFF ([facility]) Diastolic blood pressure 82 mm[Hg] 82 mm[Hg] JEFF ([facility]) Body height 68 [in_i] 68 [in_i] JEFF ([facility]) Body height 68 [in_i] 68 [in_i] JEFF ([facility]) Body height 68 [in_i] 68 [in_i] JEFF ([facility]) Body height 68 [in_i] 68 [in_i] JEFF ([facility]) Body height 68 [in_i] 68 [in_i] JEFF ([facility]) Body height 68 [in_i] 68 [in_i] JEFF ([facility]) Body height 68 [in_i] 68 [in_i] JEFF ([facility]) Body height 68 [in_i] 68 [in_i] JEFF ([facility]) Body height 68 [in_i] 68 [in_i] JEFF ([facility]) Body height 0.00 in Normal (applies to non-numeric resu lts) 0.00 in [facility] ([facility]) Body mass index (BMI) [Ratio] 0.00 kg/m2 No rmal (applies to non-numeric results) 0.00 kg/m2 [facility] ([facility]) Body weight Measured 0.00 lbs Normal (applies to n on-numeric results) 0.00 lbs [facility] ([facility]) Systolic blood pressure 0 mm[Hg] Normal (applies t o non-numeric results) 0 mm[Hg] [facility] ([facility]) Diastolic blood pressure 0 mm[Hg] Normal (applies to non-numeric results) 0 mm[Hg] [facility] ([facility]) Body mass index (BMI) [Ratio] 39.07 kg/m2 39.07 kg/m2 eCW1 ([facility]) Body weight 257 [lb_av] 257 [lb_av] eCW1 ([facility]) Body height 68 [in_i] 68 [in_i] eCW1 ([facility]) Body weight 258.50 [lb_av] 258.50 [lb_av] MEDEN T ([facility] ) Oxygen saturation in Arterial blood by Pulse oximetry 92 % 92 % MEDENT ([facility] ) Systolic blood pressure 110 mm[Hg] 110 mm[Hg] M EDENT ([facility] ) Diastolic blood pressure 78 mm[Hg] 78 mm[Hg] [facility] ([facility] ) Heart rate 90 /min 90 /min [facility] ([facility] ) Body temperature 97.1 [degF] 97.1 [degF] [facility] ([facility] ) Body height 68 [in_i] 68 [in_i] MEDENT ([facility] ) 5'8" Body mass index (BMI) [Ratio] 39.3 kg/m2 39.3 k g/m2 [facility] ([facility] ) Body height 68 [in_i] 68 [in_i] JEFF ([facility]) Diastolic blood pressure 85 mm[Hg] 85 mm[Hg] JEFF ([facility]) Body mass index (BMI) [Ratio] 31.7 kg/m2 31.7 k g/m2 JEFF ([facility]) Body weight 3334 [oz_av] 3334 [oz_av] JEFF ([facility]) Systolic blood pressure 121 mm[Hg] 121 mm[Hg] A [facility] ([facility]) Diastolic blood pressure 85 mm[Hg] 85 mm[Hg] JEFF ([facility]) Body height 68 [in_i] 68 [in_i] JEFF ([facility]) Body mass index (BMI) [Ratio] 31.7 kg/m2 31.7 k g/m2 JEFF ([facility]) Systolic blood pressure 121 mm[Hg] 121 mm[Hg] A [facility] ([facility]) Body weight 3334 [oz_av] 3334 [oz_av] JEFF ([facility]) Diastolic blood pressure 85 mm[Hg] 85 mm[Hg] JEFF ([facility]) Body height 68 [in_i] 68 [in_i] JEFF ([facility]) Body mass index (BMI) [Ratio] 31.7 kg/m2 31.7 k g/m2 JEFF ([facility]) Systolic blood pressure 121 mm[Hg] 121 mm[Hg] A THENA ([facility]) Body weight 3334 [oz_av] 3334 [oz_av] JEFF ([facility]) Diastolic blood pressure 85 mm[Hg] 85 mm[Hg] JEFF ([facility]) Body mass index (BMI) [Ratio] 31.7 kg/m2 31.7 k g/m2 JEFF ([facility]) Body height 68 [in_i] 68 [in_i] JEFF ([facility]) Systolic blood pressure 121 mm[Hg] 121 mm[Hg] A THENA ([facility]) Body weight 3334 [oz_av] 3334 [oz_av] JEFF ([facility]) Diastolic blood pressure 85 mm[Hg] 85 mm[Hg] JEFF ([facility]) Body height 68 [in_i] 68 [in_i] JEFF ([facility]) Body mass index (BMI) [Ratio] 31.7 kg/m2 31.7 k g/m2 JEFF ([facility]) Systolic blood pressure 121 mm[Hg] 121 mm[Hg] A THENA ([facility]) Body weight 3334 [oz_av] 3334 [oz_av] JEFF ([facility]) Diastolic blood pressure 85 mm[Hg] 85 mm[Hg] JEFF ([facility]) Body height 68 [in_i] 68 [in_i] JEFF ([facility]) Body mass index (BMI) [Ratio] 31.7 kg/m2 31.7 k g/m2 JEFF ([facility]) Systolic blood pressure 121 mm[Hg] 121 mm[Hg] A THENA ([facility]) Body weight 3334 [oz_av] 3334 [oz_av] JEFF ([facility]) Diastolic blood pressure 85 mm[Hg] 85 mm[Hg] JEFF ([facility]) Body height 68 [in_i] 68 [in_i] JEFF ([facility]) Body mass index (BMI) [Ratio] 31.7 kg/m2 31.7 k g/m2 JEFF ([facility]) Systolic blood pressure 121 mm[Hg] 121 mm[Hg] A THENA ([facility]) Body weight 3334 [oz_av] 3334 [oz_av] JEFF ([facility]) Diastolic blood pressure 85 mm[Hg] 85 mm[Hg] JEFF ([facility]) Body height 68 [in_i] 68 [in_i] JEFF ([facility]) Body mass index (BMI) [Ratio] 31.7 kg/m2 31.7 k g/m2 JEFF ([facility]) Systolic blood pressure 121 mm[Hg] 121 mm[Hg] A THENA ([facility]) Body weight 3334 [oz_av] 3334 [oz_av] JEFF ([facility]) Diastolic blood pressure 85 mm[Hg] 85 mm[Hg] JEFF ([facility]) Body height 68 [in_i] 68 [in_i] JEFF ([facility]) Systolic blood pressure 121 mm[Hg] 121 mm[Hg] A [facility] ([facility]) Body mass index (BMI) [Ratio] 31.7 kg/m2 31.7 k g/m2 JEFF ([facility]) Body weight 3334 [oz_av] 3334 [oz_av] JEFF ([facility]) Diastolic blood pressure 85 mm[Hg] 85 mm[Hg] JEFF ([facility]) Body height 68 [in_i] 68 [in_i] JEFF ([facility]) Body mass index (BMI) [Ratio] 31.7 kg/m2 31.7 k g/m2 JEFF ([facility]) Systolic blood pressure 121 mm[Hg] 121 mm[Hg] A THENA ([facility]) Body weight 3334 [oz_av] 3334 [oz_av] JEFF ([facility]) Diastolic blood pressure 85 mm[Hg] 85 mm[Hg] JEFF ([facility]) Body height 68 [in_i] 68 [in_i] JEFF ([facility]) Body mass index (BMI) [Ratio] 31.7 kg/m2 31.7 k g/m2 JEFF ([facility]) Systolic blood pressure 121 mm[Hg] 121 mm[Hg] A THENA ([facility]) Body weight 3334 [oz_av] 3334 [oz_av] JEFF ([facility]) Diastolic blood pressure 85 mm[Hg] 85 mm[Hg] JEFF ([facility]) Body height 68 [in_i] 68 [in_i] JEFF ([facility]) Body mass index (BMI) [Ratio] 31.7 kg/m2 31.7 k g/m2 JEFF ([facility]) Systolic blood pressure 121 mm[Hg] 121 mm[Hg] A [facility] ([facility]) Body weight 3334 [oz_av] 3334 [oz_av] JEFF ([facility]) Body weight 260.6 [lb_av] 260.6 [lb_av] W1 ([facility]) Body height 68 [in_i] 68 [in_i] eCW1 ([facility]) Body mass index (BMI) [Ratio] 39.62 kg/m2 39.62 kg/m2 [facility] ([facility]) Body height 0.00 in Normal (applies to non-numeric resu lts) 0.00 in [facility] ([facility]) Body weight Measured 0.00 lbs Normal (applies to n on-numeric results) 0.00 lbs [facility] Body mass index (BMI) [Ratio] 0.00 kg/m2 No rmal (applies to non-numeric results) 0.00 kg/m2 [facility] ([facility]) Diastolic blood pressure 0 mm[Hg] Normal (applies to non-numeric results) 0 mm[Hg] [facility] Systolic blood pressure 0 mm[Hg] Normal (applies t o non-numeric results) 0 mm[Hg] [facility] ([facility]) Diastolic blood pressure 84 mm[Hg] 84 mm[Hg] MEDENT ([facility] ) Heart rate 87 /min 87 /min [facility] ([facility] ) Body temperature 96.4 [degF] 96.4 [degF] [facility] ([facility] ) Body weight 263.31 [lb_av] 263.31 [lb_av] MEDEN T ([facility] [facility] ) Body mass index (BMI) [Ratio] 40.0 kg/m2 40.0 k g/m2 MEDENT ([facility] ) Oxygen saturation in Arterial blood by Pulse oximetry 97 % 97 % MEDENT ([facility] ) Systolic blood pressure 122 mm[Hg] 122 mm[Hg] M EDENT ([facility] ) Body height 68 [in_i] 68 [in_i] MEDENT ([facility] ) 5'8" Diastolic blood pressure 78 mm[Hg] 78 mm[Hg] JEFF ([facility]) Body height 68 [in_i] 68 [in_i] JEFF ([facility]) Body mass index (BMI) [Ratio] 40 kg/m2 40 kg/ m2 JEFF ([facility]) Systolic blood pressure 115 mm[Hg] 115 mm[Hg] A [facility]) Body weight 4208 [oz_av] 4208 [oz_av] JEFF ([facility]) Diastolic blood pressure 78 mm[Hg] 78 mm[Hg] JEFF ([facility]) Body height 68 [in_i] 68 [in_i] JEFF ([facility]) Body mass index (BMI) [Ratio] 40 kg/m2 40 kg/ m2 JEFF ([facility]) Systolic blood pressure 115 mm[Hg] 115 mm[Hg] A [facility] ([facility]) Body weight 4208 [oz_av] 4208 [oz_av] JEFF ([facility]) Diastolic blood pressure 78 mm[Hg] 78 mm[Hg] JEFF ([facility]) Body height 68 [in_i] 68 [in_i] JEFF ([facility]) Body mass index (BMI) [Ratio] 40 kg/m2 40 kg/ m2 JEFF ([facility]) Systolic blood pressure 115 mm[Hg] 115 mm[Hg] A [facility] ([facility]) Body weight 4208 [oz_av] 4208 [oz_av] JEFF ([facility]) Diastolic blood pressure 78 mm[Hg] 78 mm[Hg] JEFF ([facility]) Body height 68 [in_i] 68 [in_i] JEFF ([facility]) Body mass index (BMI) [Ratio] 40 kg/m2 40 kg/ m2 JEFF ([facility]) Systolic blood pressure 115 mm[Hg] 115 mm[Hg] A [facility] ([facility]) Body weight 4208 [oz_av] 4208 [oz_av] JEFF ([facility]) Diastolic blood pressure 78 mm[Hg] 78 mm[Hg] JEFF ([facility]) Body height 68 [in_i] 68 [in_i] JEFF ([facility]) Body mass index (BMI) [Ratio] 40 kg/m2 40 kg/ m2 JEFF ([facility]) Systolic blood pressure 115 mm[Hg] 115 mm[Hg] A [facility] ([facility]) Body weight 4208 [oz_av] 4208 [oz_av] JEFF ([facility]) Body height 68 [in_i] 68 [in_i] JEFF ([facility]) Diastolic blood pressure 78 mm[Hg] 78 mm[Hg] JEFF ([facility]) Body mass index (BMI) [Ratio] 40 kg/m2 40 kg/ m2 JEFF ([facility]) Systolic blood pressure 115 mm[Hg] 115 mm[Hg] A THENA ([facility]) Body weight 4208 [oz_av] 4208 [oz_av] JEFF ([facility]) Diastolic blood pressure 78 mm[Hg] 78 mm[Hg] JEFF ([facility]) Body height 68 [in_i] 68 [in_i] JEFF ([facility]) Body mass index (BMI) [Ratio] 40 kg/m2 40 kg/ m2 JEFF ([facility]) Systolic blood pressure 115 mm[Hg] 115 mm[Hg] A THENA ([facility]) Body weight 4208 [oz_av] 4208 [oz_av] JEFF ([facility]) Diastolic blood pressure 78 mm[Hg] 78 mm[Hg] JEFF ([facility]) Body height 68 [in_i] 68 [in_i] JEFF ([facility]) Body mass index (BMI) [Ratio] 40 kg/m2 40 kg/ m2 JEFF ([facility]) Systolic blood pressure 115 mm[Hg] 115 mm[Hg] A [facility] ([facility]) Body weight 4208 [oz_av] 4208 [oz_av] JEFF ([facility]) Diastolic blood pressure 78 mm[Hg] 78 mm[Hg] JEFF ([facility]) Body height 68 [in_i] 68 [in_i] JEFF ([facility]) Body mass index (BMI) [Ratio] 40 kg/m2 40 kg/ m2 JEFF ([facility]) Systolic blood pressure 115 mm[Hg] 115 mm[Hg] A [facility] ([facility]) Body weight 4208 [oz_av] 4208 [oz_av] JEFF ([facility]) Diastolic blood pressure 78 mm[Hg] 78 mm[Hg] JEFF ([facility]) Body height 68 [in_i] 68 [in_i] JEFF ([facility]) Body mass index (BMI) [Ratio] 40 kg/m2 40 kg/ m2 JEFF ([facility]) Systolic blood pressure 115 mm[Hg] 115 mm[Hg] A [facility] ([facility]) Body weight 4208 [oz_av] 4208 [oz_av] JEFF ([facility]) Body height 68 [in_i] 68 [in_i] JEFF ([facility]) Diastolic blood pressure 78 mm[Hg] 78 mm[Hg] JEFF ([facility]) Body mass index (BMI) [Ratio] 40 kg/m2 40 kg/ m2 JEFF ([facility]) Systolic blood pressure 115 mm[Hg] 115 mm[Hg] A [facility] ([facility]) Body weight 4208 [oz_av] 4208 [oz_av] JEFF ([facility]) Diastolic blood pressure 78 mm[Hg] 78 mm[Hg] JEFF ([facility]) Body height 68 [in_i] 68 [in_i] JEFF ([facility]) Body mass index (BMI) [Ratio] 40 kg/m2 40 kg/ m2 JEFF ([facility]) Systolic blood pressure 115 mm[Hg] 115 mm[Hg] A [facility] ([facility]) Body weight 4208 [oz_av] 4208 [oz_av] JEFF ([facility]) Diastolic blood pressure 78 mm[Hg] 78 mm[Hg] JEFF ([facility]) Body height 68 [in_i] 68 [in_i] JEFF ([facility]) Body mass index (BMI) [Ratio] 40 kg/m2 40 kg/ m2 JEFF ([facility]) Systolic blood pressure 115 mm[Hg] 115 mm[Hg] A [facility] ([facility]) Body weight 4208 [oz_av] 4208 [oz_av] JEFF ([facility]) Diastolic blood pressure 78 mm[Hg] 78 mm[Hg] JEFF ([facility]) Body height 68 [in_i] 68 [in_i] JEFF ([facility]) Body mass index (BMI) [Ratio] 40 kg/m2 40 kg/ m2 JEFF ([facility]) Systolic blood pressure 115 mm[Hg] 115 mm[Hg] A THENA ([facility]) Body weight 4208 [oz_av] 4208 [oz_av] JEFF ([facility]) Body height 68 [in_i] 68 [in_i] MEDENT ([facility] 5'8" Body weight 260.00 [lb_av] 260.00 [lb_av] MEDEN T ([facility] Systolic blood pressure 125 mm[Hg] 125 mm[Hg] M EDENT ([facility] Diastolic blood pressure 83 mm[Hg] 83 mm[Hg] MED[facility] ([facility] Heart rate 92 /min 92 /min MED[facility] ([facility] Body mass index (BMI) [Ratio] 39.5 kg/m2 39.5 k g/m2 MEDENT ([facility] Body height 0.00 in Normal (applies to non-numeric resu lts) 0.00 in [facility] ([facility]) Body weight Measured 0.00 lbs Normal (applies to n on-numeric results) 0.00 lbs [facility] ([facility]) Body mass index (BMI) [Ratio] 0.00 kg/m2 No rmal (applies to non-numeric results) 0.00 kg/m2 [facility] ([facility]) Systolic blood pressure 0 mm[Hg] Normal (applies t o non-numeric results) 0 mm[Hg] [facility] ([facility]) Diastolic blood pressure 0 mm[Hg] Normal (applies to non-numeric results) 0 mm[Hg] [facility] ([facility]) Diastolic blood pressure 83 mm[Hg] 83 mm[Hg] JEFF ([facility]) Body height 68 [in_i] 68 [in_i] JEFF ([facility]) Body mass index (BMI) [Ratio] 39.6 kg/m2 39.6 k g/m2 JEFF ([facility]) Systolic blood pressure 125 mm[Hg] 125 mm[Hg] A [facility] ([facility]) Body weight 4164 [oz_av] 4164 [oz_av] JEFF ([facility]) Diastolic blood pressure 83 mm[Hg] 83 mm[Hg] JEFF ([facility]) Body height 68 [in_i] 68 [in_i] JEFF ([facility]) Body mass index (BMI) [Ratio] 39.6 kg/m2 39.6 k g/m2 JEFF ([facility]) Systolic blood pressure 125 mm[Hg] 125 mm[Hg] A [facility] ([facility]) Body weight 4164 [oz_av] 4164 [oz_av] JEFF ([facility]) Body mass index (BMI) [Ratio] 39.6 kg/m2 39.6 k g/m2 JEFF ([facility]) Diastolic blood pressure 83 mm[Hg] 83 mm[Hg] JEFF ([facility]) Body height 68 [in_i] 68 [in_i] JEFF ([facility]) Systolic blood pressure 125 mm[Hg] 125 mm[Hg] A [facility] ([facility]) Body weight 4164 [oz_av] 4164 [oz_av] JEFF ([facility]) Systolic blood pressure 125 mm[Hg] 125 mm[Hg] A [facility] ([facility]) Body weight 4164 [oz_av] 4164 [oz_av] JEFF ([facility]) Diastolic blood pressure 83 mm[Hg] 83 mm[Hg] JEFF ([facility]) Body height 68 [in_i] 68 [in_i] JEFF ([facility]) Body mass index (BMI) [Ratio] 39.6 kg/m2 39.6 k g/m2 JEFF ([facility]) Body height 68 [in_i] 68 [in_i] JEFF ([facility]) Diastolic blood pressure 83 mm[Hg] 83 mm[Hg] JEFF ([facility]) Body mass index (BMI) [Ratio] 39.6 kg/m2 39.6 k g/m2 JEFF ([facility]) Systolic blood pressure 125 mm[Hg] 125 mm[Hg] A [facility]) Body weight 4164 [oz_av] 4164 [oz_av] JEFF ([facility]) Diastolic blood pressure 83 mm[Hg] 83 mm[Hg] JEFF ([facility]) Body height 68 [in_i] 68 [in_i] JEFF ([facility]) Body mass index (BMI) [Ratio] 39.6 kg/m2 39.6 k g/m2 JEFF ([facility]) Systolic blood pressure 125 mm[Hg] 125 mm[Hg] A THENA ([facility]) Body weight 4164 [oz_av] 4164 [oz_av] JEFF ([facility]) Diastolic blood pressure 83 mm[Hg] 83 mm[Hg] JEFF ([facility]) Body height 68 [in_i] 68 [in_i] JEFF ([facility]) Body mass index (BMI) [Ratio] 39.6 kg/m2 39.6 k g/m2 JEFF ([facility]) Systolic blood pressure 125 mm[Hg] 125 mm[Hg] A THENA ([facility]) Body weight 4164 [oz_av] 4164 [oz_av] JEFF ([facility]) Diastolic blood pressure 83 mm[Hg] 83 mm[Hg] JEFF ([facility]) Body height 68 [in_i] 68 [in_i] JEFF ([facility]) Body mass index (BMI) [Ratio] 39.6 kg/m2 39.6 k g/m2 JEFF ([facility]) Systolic blood pressure 125 mm[Hg] 125 mm[Hg] A THENA ([facility]) Body weight 4164 [oz_av] 4164 [oz_av] JEFF ([facility]) Diastolic blood pressure 83 mm[Hg] 83 mm[Hg] JEFF ([facility]) Body height 68 [in_i] 68 [in_i] JEFF ([facility]) Body mass index (BMI) [Ratio] 39.6 kg/m2 39.6 k g/m2 JEFF ([facility]) Systolic blood pressure 125 mm[Hg] 125 mm[Hg] A THENA ([facility]) Body weight 4164 [oz_av] 4164 [oz_av] JEFF ([facility]) Diastolic blood pressure 83 mm[Hg] 83 mm[Hg] JEFF ([facility]) Body height 68 [in_i] 68 [in_i] JEFF ([facility]) Body mass index (BMI) [Ratio] 39.6 kg/m2 39.6 k g/m2 JEFF ([facility]) Systolic blood pressure 125 mm[Hg] 125 mm[Hg] A THENA ([facility]) Body weight 4164 [oz_av] 4164 [oz_av] JEFF ([facility]) Diastolic blood pressure 83 mm[Hg] 83 mm[Hg] JEFF ([facility]) Body height 68 [in_i] 68 [in_i] JEFF ([facility]) Body mass index (BMI) [Ratio] 39.6 kg/m2 39.6 k g/m2 JEFF ([facility]) Systolic blood pressure 125 mm[Hg] 125 mm[Hg] A THENA ([facility]) Body weight 4164 [oz_av] 4164 [oz_av] JEFF ([facility]) Diastolic blood pressure 83 mm[Hg] 83 mm[Hg] JEFF ([facility]) Body height 68 [in_i] 68 [in_i] JEFF ([facility]) Body mass index (BMI) [Ratio] 39.6 kg/m2 39.6 k g/m2 JEFF ([facility]) Systolic blood pressure 125 mm[Hg] 125 mm[Hg] A THENA ([facility]) Body weight 4164 [oz_av] 4164 [oz_av] JEFF ([facility]) Diastolic blood pressure 83 mm[Hg] 83 mm[Hg] JEFF ([facility]) Body height 68 [in_i] 68 [in_i] JEFF ([facility]) Body mass index (BMI) [Ratio] 39.6 kg/m2 39.6 k g/m2 JEFF ([facility]) Systolic blood pressure 125 mm[Hg] 125 mm[Hg] A THENA ([facility]) Body weight 4164 [oz_av] 4164 [oz_av] JEFF ([facility]) Diastolic blood pressure 83 mm[Hg] 83 mm[Hg] JEFF ([facility]) Body height 68 [in_i] 68 [in_i] JEFF ([facility]) Body mass index (BMI) [Ratio] 39.6 kg/m2 39.6 k g/m2 JEFF ([facility]) Systolic blood pressure 125 mm[Hg] 125 mm[Hg] A THENA ([facility]) Body weight 4164 [oz_av] 4164 [oz_av] JEFF ([facility]) Diastolic blood pressure 83 mm[Hg] 83 mm[Hg] JEFF ([facility]) Body height 68 [in_i] 68 [in_i] JEFF ([facility]) Body mass index (BMI) [Ratio] 39.6 kg/m2 39.6 k g/m2 JEFF ([facility]) Systolic blood pressure 125 mm[Hg] 125 mm[Hg] A THENA ([facility]) Body weight 4164 [oz_av] 4164 [oz_av] JEFF ([facility]) Body height 0.00 in Normal (applies to non-numeric resu lts) 0.00 in [facility] ([facility]) Body weight Measured 0.00 lbs Normal (applies to n on-numeric results) 0.00 lbs [facility] ([facility]) Body mass index (BMI) [Ratio] 0.00 kg/m2 No rmal (applies to non-numeric results) 0.00 kg/m2 [facility] ([facility] Systolic blood pressure 142 mm[Hg] Normal (applies t o non-numeric results) 142 mm[Hg] [facility] ([facility]) Diastolic blood pressure 78 mm[Hg] Normal (applies to non-numeric results) 78 mm[Hg] [facility] ([facility]) Systolic blood pressure 126 mm[Hg] 126 mm[Hg] M EDENT ([facility]) Diastolic blood pressure 70 mm[Hg] 70 mm[Hg] MEDENT ([facility]) Heart rate 77 /min 77 /min [facility] ([facility]) Oxygen saturation in Arterial blood by Pulse oximetry 98 % 98 % [facility] ([facility]) Body temperature 97.8 [degF] 97.8 [degF] [facility] ([facility]) Body height 68 [in_i] 68 [in_i] [facility] ([facility]) 5'8" Body weight 268.44 [lb_av] 268.44 [lb_av] MEDEN T ([facility]) Body mass index (BMI) [Ratio] 40.8 kg/m2 40.8 k g/m2 [facility] ([facility] ) Diastolic blood pressure 88 mm[Hg] 88 mm[Hg] JEFF ([facility]) Body height 68 [in_i] 68 [in_i] JEFF ([facility]) Body mass index (BMI) [Ratio] 40 kg/m2 40 kg/ m2 JEFF ([facility]) Systolic blood pressure 124 mm[Hg] 124 mm[Hg] A THENA ([facility]) Body weight 4214 [oz_av] 4214 [oz_av] JEFF ([facility]) Diastolic blood pressure 88 mm[Hg] 88 mm[Hg] JEFF ([facility]) Body height 68 [in_i] 68 [in_i] JEFF ([facility]) Body mass index (BMI) [Ratio] 40 kg/m2 40 kg/ m2 JEFF ([facility]) Systolic blood pressure 124 mm[Hg] 124 mm[Hg] [facility] Body weight 4214 [oz_av] 4214 [oz_av] JEFF ([facility]) Diastolic blood pressure 88 mm[Hg] 88 mm[Hg] JEFF ([facility]) Body height 68 [in_i] 68 [in_i] JEFF ([facility]) Body mass index (BMI) [Ratio] 40 kg/m2 40 kg/ m2 JEFF ([facility]) Systolic blood pressure 124 mm[Hg] 124 mm[Hg] A THENA ([facility]) Body weight 4214 [oz_av] 4214 [oz_av] JEFF ([facility]) Diastolic blood pressure 88 mm[Hg] 88 mm[Hg] JEFF ([facility]) Body height 68 [in_i] 68 [in_i] JEFF ([facility]) Body mass index (BMI) [Ratio] 40 kg/m2 40 kg/ m2 JEFF ([facility]) Systolic blood pressure 124 mm[Hg] 124 mm[Hg] [facility] Body weight 4214 [oz_av] 4214 [oz_av] JEFF ([facility]) Diastolic blood pressure 88 mm[Hg] 88 mm[Hg] JEFF ([facility]) Body height 68 [in_i] 68 [in_i] JEFF ([facility]) Body mass index (BMI) [Ratio] 40 kg/m2 40 kg/ m2 JEFF ([facility]) Systolic blood pressure 124 mm[Hg] 124 mm[Hg] A [facility]) Body weight 4214 [oz_av] 4214 [oz_av] JEFF ([facility]) Diastolic blood pressure 88 mm[Hg] 88 mm[Hg] JEFF ([facility]) Body height 68 [in_i] 68 [in_i] JEFF ([facility]) Body mass index (BMI) [Ratio] 40 kg/m2 40 kg/ m2 JEFF ([facility]) Systolic blood pressure 124 mm[Hg] 124 mm[Hg] A [facility]) Body weight 4214 [oz_av] 4214 [oz_av] JEFF ([facility]) Diastolic blood pressure 88 mm[Hg] 88 mm[Hg] JEFF ([facility]) Body mass index (BMI) [Ratio] 40 kg/m2 40 kg/ m2 JEFF ([facility]) Body height 68 [in_i] 68 [in_i] JEFF ([facility]) Systolic blood pressure 124 mm[Hg] 124 mm[Hg] A [facility]) Body weight 4214 [oz_av] 4214 [oz_av] JEFF ([facility]) Diastolic blood pressure 88 mm[Hg] 88 mm[Hg] JEFF ([facility]) Body height 68 [in_i] 68 [in_i] JEFF ([facility]) Body mass index (BMI) [Ratio] 40 kg/m2 40 kg/ m2 JEFF ([facility]) Systolic blood pressure 124 mm[Hg] 124 mm[Hg] A THENA ([facility]) Body weight 4214 [oz_av] 4214 [oz_av] JEFF ([facility]) Diastolic blood pressure 88 mm[Hg] 88 mm[Hg] JEFF ([facility]) Body height 68 [in_i] 68 [in_i] JEFF ([facility]) Body mass index (BMI) [Ratio] 40 kg/m2 40 kg/ m2 JEFF ([facility]) Systolic blood pressure 124 mm[Hg] 124 mm[Hg] A THENA ([facility]) Body weight 4214 [oz_av] 4214 [oz_av] JEFF ([facility]) Diastolic blood pressure 88 mm[Hg] 88 mm[Hg] JEFF ([facility]) Body height 68 [in_i] 68 [in_i] JEFF ([facility]) Body mass index (BMI) [Ratio] 40 kg/m2 40 kg/ m2 JEFF ([facility]) Systolic blood pressure 124 mm[Hg] 124 mm[Hg] A THENA ([facility]) Body weight 4214 [oz_av] 4214 [oz_av] JEFF ([facility]) Diastolic blood pressure 88 mm[Hg] 88 mm[Hg] JEFF ([facility]) Body height 68 [in_i] 68 [in_i] JEFF ([facility]) Body mass index (BMI) [Ratio] 40 kg/m2 40 kg/ m2 JEFF ([facility]) Systolic blood pressure 124 mm[Hg] 124 mm[Hg] A THENA ([facility]) Body weight 4214 [oz_av] 4214 [oz_av] JEFF ([facility]) Diastolic blood pressure 88 mm[Hg] 88 mm[Hg] JEFF ([facility]) Body height 68 [in_i] 68 [in_i] JEFF ([facility]) Body mass index (BMI) [Ratio] 40 kg/m2 40 kg/ m2 JEFF ([facility]) Systolic blood pressure 124 mm[Hg] 124 mm[Hg] A THEN ([facility]) Body weight 4214 [oz_av] 4214 [oz_av] JEFF ([facility]) Diastolic blood pressure 88 mm[Hg] 88 mm[Hg] JEFF ([facility]) Body height 68 [in_i] 68 [in_i] JEFF ([facility]) Body mass index (BMI) [Ratio] 40 kg/m2 40 kg/ m2 JEFF ([facility]) Systolic blood pressure 124 mm[Hg] 124 mm[Hg] A THENA ([facility]) Body weight 4214 [oz_av] 4214 [oz_av] JEFF ([facility]) Body weight 4214 [oz_av] 4214 [oz_av] JEFF ([facility]) Diastolic blood pressure 88 mm[Hg] 88 mm[Hg] JEFF ([facility]) Body height 68 [in_i] 68 [in_i] JEFF ([facility]) Body mass index (BMI) [Ratio] 40 kg/m2 40 kg/ m2 JEFF ([facility]) Systolic blood pressure 124 mm[Hg] 124 mm[Hg] A THEN ([facility]) Diastolic blood pressure 88 mm[Hg] 88 mm[Hg] JEFF ([facility]) Body height 68 [in_i] 68 [in_i] JEFF ([facility]) Body mass index (BMI) [Ratio] 40 kg/m2 40 kg/ m2 JEFF ([facility]) Systolic blood pressure 124 mm[Hg] 124 mm[Hg] [facility] Body weight 4214 [oz_av] 4214 [oz_av] JEFF ([facility]) Diastolic blood pressure 88 mm[Hg] 88 mm[Hg] JEFF ([facility]) Body height 68 [in_i] 68 [in_i] JEFF ([facility]) Body mass index (BMI) [Ratio] 40 kg/m2 40 kg/ m2 JEFF ([facility]) Systolic blood pressure 124 mm[Hg] 124 mm[Hg] A [facility] ([facility]) Body weight 4214 [oz_av] 4214 [oz_av] JEFF ([facility]) Diastolic blood pressure 88 mm[Hg] 88 mm[Hg] JEFF ([facility]) Body height 68 [in_i] 68 [in_i] JEFF ([facility]) Body mass index (BMI) [Ratio] 40 kg/m2 40 kg/ m2 EJFF ([facility]) Systolic blood pressure 124 mm[Hg] 124 mm[Hg] [facility] Body weight 4214 [oz_av] 4214 [oz_av] JEFF ([facility]) Diastolic blood pressure 83 mm[Hg] 83 mm[Hg] JEFF ([facility]) Body height 68 [in_i] 68 [in_i] JEFF ([facility]) Body mass index (BMI) [Ratio] 40.31 kg/m2 40.31 kg/m2 JEFF ([facility]) Systolic blood pressure 134 mm[Hg] 134 mm[Hg] A [facility] Body weight 4226.08 [oz_av] 4226.08 [oz_av] ATH ALVARO ([facility]) Diastolic blood pressure 83 mm[Hg] 83 mm[Hg] JEFF ([facility]) Body height 68 [in_i] 68 [in_i] JEFF ([facility]) Body mass index (BMI) [Ratio] 40.31 kg/m2 40.31 kg/m2 JE[facility] ([facility]) Systolic blood pressure 134 mm[Hg] 134 mm[Hg] [facility] Body weight 4226.08 [oz_av] 4226.08 [oz_av] ATH ALVARO ([facility]) Diastolic blood pressure 83 mm[Hg] 83 mm[Hg] JEFF ([facility]) Body height 68 [in_i] 68 [in_i] JEFF ([facility]) Body mass index (BMI) [Ratio] 40.31 kg/m2 40.31 kg/m2 [facility] ([facility]) Body weight 4226.08 [oz_av] 4226.08 [oz_av] ATH ALVARO ([facility]) Systolic blood pressure 134 mm[Hg] 134 mm[Hg] [facility]) Diastolic blood pressure 83 mm[Hg] 83 mm[Hg] JEFF ([facility]) Body height 68 [in_i] 68 [in_i] JEFF ([facility]) Body mass index (BMI) [Ratio] 40.31 kg/m2 40.31 kg/m2 JE[facility] ([facility]) Systolic blood pressure 134 mm[Hg] 134 mm[Hg] A THENA ([facility]) Body weight 4226.08 [oz_av] 4226.08 [oz_av] ATH ALVARO ([facility]) Diastolic blood pressure 83 mm[Hg] 83 mm[Hg] JEFF ([facility]) Body height 68 [in_i] 68 [in_i] JEFF ([facility]) Body mass index (BMI) [Ratio] 40.31 kg/m2 40.31 kg/m2 JE[facility] ([facility]) Systolic blood pressure 134 mm[Hg] 134 mm[Hg] A THENA ([facility]) Body weight 4226.08 [oz_av] 4226.08 [oz_av] ATH ALVARO ([facility]) Body weight 4226.08 [oz_av] 4226.08 [oz_av] ATH ALVARO ([facility]) Body height 68 [in_i] 68 [in_i] JEFF ([facility]) Body mass index (BMI) [Ratio] 40.31 kg/m2 40.31 kg/m2 JE[facility] ([facility]) Systolic blood pressure 134 mm[Hg] 134 mm[Hg] [facility] Diastolic blood pressure 83 mm[Hg] 83 mm[Hg] JEFF ([facility]) Systolic blood pressure 134 mm[Hg] 134 mm[Hg] [facility]) Body weight 4226.08 [oz_av] 4226.08 [oz_av] ATH ALVARO ([facility]) Diastolic blood pressure 83 mm[Hg] 83 mm[Hg] JEFF ([facility]) Body height 68 [in_i] 68 [in_i] JEFF ([facility]) Body mass index (BMI) [Ratio] 40.31 kg/m2 40.31 kg/m2 JEFF ([facility]) Diastolic blood pressure 83 mm[Hg] 83 mm[Hg] JEFF ([facility]) Body height 68 [in_i] 68 [in_i] JEFF ([facility]) Body mass index (BMI) [Ratio] 40.31 kg/m2 40.31 kg/m2 JE[facility] ([facility]) Systolic blood pressure 134 mm[Hg] 134 mm[Hg] A THENA ([facility]) Body weight 4226.08 [oz_av] 4226.08 [oz_av] ATH ALVARO ([facility]) Diastolic blood pressure 83 mm[Hg] 83 mm[Hg] JEFF ([facility]) Body height 68 [in_i] 68 [in_i] JEFF ([facility]) Body mass index (BMI) [Ratio] 40.31 kg/m2 40.31 kg/m2 [facility] ([facility]) Systolic blood pressure 134 mm[Hg] 134 mm[Hg] A THENA ([facility]) Body weight 4226.08 [oz_av] 4226.08 [oz_av] ATH [facility]VARO ([facility]) Body mass index (BMI) [Ratio] 40.31 kg/m2 40.31 kg/m2 JEFF ([facility]) Systolic blood pressure 134 mm[Hg] 134 mm[Hg] A THENA ([facility]) Body weight 4226.08 [oz_av] 4226.08 [oz_av] ATH [facility]VARO ([facility]) Diastolic blood pressure 83 mm[Hg] 83 mm[Hg] JEFF ([facility]) Body height 68 [in_i] 68 [in_i] JEFF ([facility]) Diastolic blood pressure 83 mm[Hg] 83 mm[Hg] JEFF ([facility]) Body height 68 [in_i] 68 [in_i] JEFF ([facility]) Body mass index (BMI) [Ratio] 40.31 kg/m2 40.31 kg/m2 [facility] ([facility]) Systolic blood pressure 134 mm[Hg] 134 mm[Hg] A THENA ([facility]) Body weight 4226.08 [oz_av] 4226.08 [oz_av] ATH [facility]VARO ([facility]) Body height 0.00 in Normal (applies to non-numeric resu lts) 0.00 in [facility] ([facility]) Body mass index (BMI) [Ratio] 0.00 kg/m2 No rmal (applies to non-numeric results) 0.00 kg/m2 [facility] ([facility]) Systolic blood pressure 0 mm[Hg] Normal (applies t o non-numeric results) 0 mm[Hg] [facility] ([facility]) Diastolic blood pressure 0 mm[Hg] Normal (applies to non-numeric results) 0 mm[Hg] [facility] ([facility]) Body weight Measured 0.00 lbs Normal (applies to n on-numeric results) 0.00 lbs [facility] ([facility]) Patient Treatment Plan of Care Planned Activity Planned Date Details Description Data Source (s) Alcohol Prep Pads 06/20/2021 12:00:00 AM EDT [facility] ([facility]) ziprasidone 60 MG Oral Capsule [facility] ([facility]) Ergocalciferol 64305 UNT Oral Capsule [facility] ([facility]) 0.5 ML dulaglutide 1.5 MG/ML Auto-Injector [Trulicity] [facility] ([facility]) Triamcinolone Acetonide 1 MG/ML Topical Cream [facility] [facility] Trazodone Hydrochloride 50 MG Oral Tablet JEFF ([facility] Steglatro 5 mg tablet JEFF ([facility]) Simvastatin 10 MG Oral Tablet JEFF ([facility]) Docusate Sodium 50 MG / sennosides, NURSING HOME 8.6 MG Oral Tablet JEFF ([facility]) sennosides 8.6 mg-docusate sodium 50 mg capsule Take 2 capsules by oral route at bedtime. JEFF ([facility]) sennosides, NURSING HOME 8.6 MG Oral Tablet [Senna-Time] JEFF ([facility]) Propranolol Hydrochloride 20 MG Oral Tablet JEFF ([facility]) Prazosin 1 MG Oral Capsule A THEN ([facility]) OneTouch Verio test strips USE UP TO TWO TIMES A DAY DIRECTED [place] ([facility]) OneTouch Verio Flex Meter AT [facility] ([facility]) OneTouch Delica Plus Lancet 33 gauge [place] ([facility]) Ofloxacin 3 MG/ML Otic Solution JEFF ([facility]) Mirtazapine 45 MG Oral Tablet JEFF ([facility]) Mirtazapine 15 MG Oral Tablet JEFF ([facility]) lamotrigine 25 MG Oral Tablet JEFF ([facility]) lamotrigine 100 MG Oral Tablet JEFF ([facility]) Ketoconazole 20 MG/ML Medicated Shampoo JEFF ([facility]) Famotidine 20 MG Oral Tablet JEFF ([facility]) Docusate Sodium 100 MG Oral Capsule [DOK] JEFF ([facility]) Clonidine Hydrochloride 0.2 MG Oral Tablet JEFF ([facility]) Clonazepam 1 MG Oral Tablet JEFF ([facility]) Clonazepam 0.5 MG Disintegrating Oral Tablet JEFF ([facility]) Clindamycin 150 MG Oral Capsule JEFF ([facility]) Cephalexin 500 MG Oral Capsule JEFF ([facility]) cefdinir 300 MG Oral Capsule JEFF ([facility]) buspirone hydrochloride 7.5 MG Oral Tablet JEFF ([facility]) buspirone hydrochloride 15 MG Oral Tablet JEFF ([facility]) buspirone hydrochloride 10 MG Oral Tablet JEFF ([facility]) benztropine mesylate 0.5 MG Oral Tablet JEFF ([facility]) benzonatate 200 MG Oral Capsule JEFF ([facility]) Azithromycin 250 MG Oral Tablet JEFF ([facility]) Amitriptyline Hydrochloride 75 MG Oral Tablet JEFF ([facility]) Amitriptyline Hydrochloride 50 MG Oral Tablet JEFF ([facility]) lamotrigine 25 MG Oral Tablet JEFF ([facility]) lamotrigine 100 MG Oral Tablet JEFF ([facility]) Ketoconazole 20 MG/ML Medicated Shampoo JEFF ([facility]) Famotidine 20 MG Oral Tablet JEFF ([facility]) Docusate Sodium 100 MG Oral Capsule [DOK] JEFF ([facility]) Clonidine Hydrochloride 0.2 MG Oral Tablet JEFF ([facility]) Clonazepam 1 MG Oral Tablet JEFF ([facility]) Clonazepam 0.5 MG Disintegrating Oral Tablet JEFF ([facility]) Clindamycin 150 MG Oral Capsule JEFF ([facility]) Cephalexin 500 MG Oral Capsule JEFF ([facility]) cefdinir 300 MG Oral Capsule JEFF ([facility]) buspirone hydrochloride 7.5 MG Oral Tablet JEFF ([facility]) buspirone hydrochloride 15 MG Oral Tablet JEFF ([facility]) buspirone hydrochloride 10 MG Oral Tablet JEFF ([facility]) benztropine mesylate 0.5 MG Oral Tablet JEFF ([facility]) benzonatate 200 MG Oral Capsule JEFF ([facility]) BD Ultra-Fine Short Pen Needle 31 gauge x 5/16" USE ONCE DAILY JEFF ([facility]) Azithromycin 250 MG Oral Tablet JEFF ([facility]) Amitriptyline Hydrochloride 75 MG Oral Tablet JEFF ([facility]) Amitriptyline Hydrochloride 50 MG Oral Tablet JEFF ([facility]) Isopropyl Alcohol 0.7 ML/ML Medicated Pad JEFF ([facility]) Clindamycin 150 MG Oral Capsule JEFF ([facility]) Cephalexin 500 MG Oral Capsule JEFF ([facility]) cefdinir 300 MG Oral Capsule JEFF ([facility]) buspirone hydrochloride 7.5 MG Oral Tablet JEFF ([facility]) buspirone hydrochloride 15 MG Oral Tablet JEFF ([facility]) buspirone hydrochloride 10 MG Oral Tablet JEFF ([facility]) benztropine mesylate 0.5 MG Oral Tablet JEFF ([facility]) benzonatate 200 MG Oral Capsule JEFF ([facility]) BD Ultra-Fine Short Pen Needle 31 gauge x 5/16" USE ONCE DAILY JEFF ([facility]) Azithromycin 250 MG Oral Tablet JEFF ([facility]) Amitriptyline Hydrochloride 75 MG Oral Tablet JEFF ([facility]) Amitriptyline Hydrochloride 50 MG Oral Tablet JEFF ([facility]) Isopropyl Alcohol 0.7 ML/ML Medicated Pad JEFF ([facility]) ziprasidone 60 MG Oral Capsule JEFF ([facility]) Ergocalciferol [id number] UNT Oral Capsule JEFF ([facility]) 0.5 ML dulaglutide 1.5 MG/ML Auto-Injector [Trulicity] JEFF ([facility]) Triamcinolone Acetonide 1 MG/ML Topical Cream JEFF ([facility]) Steglatro 5 mg tablet JEFF ([facility]) Simvastatin 10 MG Oral Tablet JEFF ([facility]) Docusate Sodium 50 MG / sennosides, NURSING HOME 8.6 MG Oral Tablet JEFF ([facility]) sennosides 8.6 mg-docusate sodium 50 mg capsule Take 2 capsules by oral route at bedtime. JEFF ([facility]) sennosides, NURSING HOME 8.6 MG Oral Tablet [Senna-Time] JEFF ([facility]) Propranolol Hydrochloride 20 MG Oral Tablet JEFF ([facility]) Prazosin 1 MG Oral Capsule A [facility] ([facility]) OneTouch Verio Flex Meter AT [place] ([facility]) OneTouch Delica Plus Lancet 33 gauge JEFF ([facility]) Mirtazapine 45 MG Oral Tablet JEFF ([facility]) Mirtazapine 15 MG Oral Tablet JEFF ([facility]) lamotrigine 25 MG Oral Tablet JEFF ([facility]) lamotrigine 100 MG Oral Tablet JEFF ([facility]) Ketoconazole 20 MG/ML Medicated Shampoo JEFF ([facility]) Famotidine 20 MG Oral Tablet JEFF ([facility]) Docusate Sodium 100 MG Oral Capsule [DOK] JEFF ([facility]) Clonidine Hydrochloride 0.2 MG Oral Tablet JEFF ([facility]) Clonazepam 1 MG Oral Tablet JEFF ([facility]) Clonazepam 0.5 MG Oral Tablet JEFF ([facility]) Clonazepam 0.5 MG Disintegrating Oral Tablet JEFF ([facility]) Clindamycin 150 MG Oral Capsule JEFF ([facility]) cefdinir 300 MG Oral Capsule JEFF ([facility]) buspirone hydrochloride 7.5 MG Oral Tablet JEFF ([facility]) buspirone hydrochloride 15 MG Oral Tablet JEFF ([facility]) buspirone hydrochloride 10 MG Oral Tablet JEFF ([facility]) benztropine mesylate 0.5 MG Oral Tablet JEFF ([facility]) benzonatate 200 MG Oral Capsule JEFF ([facility]) Azithromycin 250 MG Oral Tablet JEFF ([facility]) Amitriptyline Hydrochloride 75 MG Oral Tablet JEFF ([facility]) Amitriptyline Hydrochloride 50 MG Oral Tablet JEFF ([facility]) Isopropyl Alcohol 0.7 ML/ML Medicated Pad JEFF ([facility]) ziprasidone 60 MG Oral Capsule JEFF ([facility]) Ergocalciferol [id number] UNT Oral Capsule JEFF ([facility]) 0.5 ML dulaglutide 1.5 MG/ML Auto-Injector [Trulicity] JFEF ([facility]) Triamcinolone Acetonide 1 MG/ML Topical Cream JEFF ([facility]) Steglatro 5 mg tablet JEFF ([facility]) Simvastatin 10 MG Oral Tablet JEFF ([facility]) Docusate Sodium 50 MG / sennosides, NURSING HOME 8.6 MG Oral Tablet JEFF ([facility]) sennosides 8.6 mg-docusate sodium 50 mg capsule Take 2 capsules by oral route at bedtime. JEFF ([facility]) sennosides, NURSING HOME 8.6 MG Oral Tablet [Senna-Time] JEFF ([facility]) Propranolol Hydrochloride 20 MG Oral Tablet JEFF ([facility]) Prazosin 1 MG Oral Capsule A [facility] ([facility]) OneTouch Verio Flex Meter AT [facility] ([facility]) OneTouch Delica Plus Lancet 33 gauge JEFF ([facility]) Mirtazapine 45 MG Oral Tablet JEFF ([facility]) Mirtazapine 15 MG Oral Tablet JEFF ([facility]) lamotrigine 25 MG Oral Tablet JEFF ([facility]) lamotrigine 100 MG Oral Tablet JEFF ([facility]) Ketoconazole 20 MG/ML Medicated Shampoo JEFF ([facility]) Famotidine 20 MG Oral Tablet JEFF ([facility]) Docusate Sodium 100 MG Oral Capsule [DOK] JEFF ([facility]) Clonidine Hydrochloride 0.2 MG Oral Tablet JEFF ([facility]) Clonazepam 1 MG Oral Tablet JEFF ([facility]) Clonazepam 0.5 MG Oral Tablet JEFF ([facility]) Clonazepam 0.5 MG Disintegrating Oral Tablet JEFF ([facility]) Clindamycin 150 MG Oral Capsule JEFF ([facility]) cefdinir 300 MG Oral Capsule JEFF ([facility]) buspirone hydrochloride 7.5 MG Oral Tablet JEFF ([facility]) buspirone hydrochloride 15 MG Oral Tablet JEFF ([facility]) buspirone hydrochloride 10 MG Oral Tablet JEFF ([facility]) benztropine mesylate 0.5 MG Oral Tablet JEFF ([facility]) benzonatate 200 MG Oral Capsule JEFF ([facility]) Azithromycin 250 MG Oral Tablet JEFF ([facility]) Amitriptyline Hydrochloride 75 MG Oral Tablet JEFF ([facility]) Amitriptyline Hydrochloride 50 MG Oral Tablet JEFF ([facility]) Isopropyl Alcohol 0.7 ML/ML Medicated Pad JEFF ([facility]) ziprasidone 60 MG Oral Capsule JEFF ([facility]) Ergocalciferol [id number] UNT Oral Capsule JEFF ([facility]) 0.5 ML dulaglutide 1.5 MG/ML Auto-Injector [Trulicity] JEFF ([facility]) Triamcinolone Acetonide 1 MG/ML Topical Cream JEFF ([facility]) Steglatro 5 mg tablet JEFF ([facility]) Simvastatin 10 MG Oral Tablet JEFF ([facility]) Docusate Sodium 50 MG / sennosides, NURSING HOME 8.6 MG Oral Tablet JEFF ([facility]) sennosides 8.6 mg-docusate sodium 50 mg capsule Take 2 capsules by oral route at bedtime. JEFF ([facility]) sennosides, NURSING HOME 8.6 MG Oral Tablet [Senna-Time] JEFF ([facility]) Propranolol Hydrochloride 20 MG Oral Tablet JEFF ([facility]) Prazosin 1 MG Oral Capsule A [facility] ([facility]) OneTouch Verio Flex Meter AT [facility] ([facility]) OneTouch Delica Plus Lancet 33 gauge JEFF ([facility]) Mirtazapine 45 MG Oral Tablet JEFF ([facility]) Mirtazapine 15 MG Oral Tablet JEFF ([facility]) lamotrigine 25 MG Oral Tablet JEFF ([facility]) ziprasidone 60 MG Oral Capsule JEFF ([facility]) Ergocalciferol [id number] UNT Oral Capsule JEFF ([facility]) 0.5 ML dulaglutide 1.5 MG/ML Auto-Injector [Trulicity] JEFF ([facility]) Triamcinolone Acetonide 1 MG/ML Topical Cream JEFF ([facility]) Trazodone Hydrochloride 50 MG Oral Tablet JEFF ([facility]) Steglatro 5 mg tablet JEFF ([facility]) Simvastatin 10 MG Oral Tablet JEFF ([facility]) Docusate Sodium 50 MG / sennosides, NURSING HOME 8.6 MG Oral Tablet JEFF ([facility]) sennosides 8.6 mg-docusate sodium 50 mg capsule Take 2 capsules by oral route at bedtime. JEFF ([facility]) sennosides, NURSING HOME 8.6 MG Oral Tablet [Senna-Time] JEFF ([facility]) Propranolol Hydrochloride 20 MG Oral Tablet JEFF ([facility]) Prazosin 1 MG Oral Capsule A THEN ([facility]) OneTouch Verio test strips USE UP TO TWO TIMES A DAY DIRECTED [place] ([facility]) OneTouch Verio Flex Meter AT [facility] ([facility]) OneTouch Delica Plus Lancet 33 gauge JEFF ([facility]) Mirtazapine 45 MG Oral Tablet JEFF ([facility]) Mirtazapine 15 MG Oral Tablet JEFF ([facility]) ziprasidone 60 MG Oral Capsule JEFF ([facility]) Ergocalciferol [id number] UNT Oral Capsule JEFF ([facility]) 0.5 ML dulaglutide 1.5 MG/ML Auto-Injector [Trulicity] JEFF ([facility]) Triamcinolone Acetonide 1 MG/ML Topical Cream JEFF ([facility]) Trazodone Hydrochloride 50 MG Oral Tablet JEFF ([facility]) Steglatro 5 mg tablet JEFF ([facility]) Simvastatin 10 MG Oral Tablet JEFF ([facility]) Docusate Sodium 50 MG / sennosides, NURSING HOME 8.6 MG Oral Tablet JEFF ([facility]) sennosides 8.6 mg-docusate sodium 50 mg capsule Take 2 capsules by oral route at bedtime. JEFF ([facility]) sennosides, NURSING HOME 8.6 MG Oral Tablet [Senna-Time] JEFF ([facility]) Propranolol Hydrochloride 20 MG Oral Tablet JEFF ([facility]) Prazosin 1 MG Oral Capsule A THE[facility] ([facility]) OneTouch Verio test strips USE UP TO TWO TIMES A DAY DIRECTED JEFF ([facility]) OneTouch Verio Flex Meter AT [place] ([facility]) OneTouch Delica Plus Lancet 33 gauge JEFF ([facility]) Mirtazapine 45 MG Oral Tablet JEFF ([facility]) Mirtazapine 15 MG Oral Tablet JEFF ([facility]) lamotrigine 25 MG Oral Tablet JEFF ([facility]) lamotrigine 100 MG Oral Tablet JEFF ([facility]) Ketoconazole 20 MG/ML Medicated Shampoo JEFF ([facility]) Famotidine 20 MG Oral Tablet JEFF ([facility]) Docusate Sodium 100 MG Oral Capsule [DOK] JEFF ([facility]) Clonidine Hydrochloride 0.2 MG Oral Tablet JEFF ([facility]) Clonazepam 1 MG Oral Tablet JEFF ([facility]) Clonazepam 0.5 MG Oral Tablet JEFF ([facility]) Clonazepam 0.5 MG Disintegrating Oral Tablet JEFF ([facility]) ziprasidone 60 MG Oral Capsule JEFF ([facility]) Ergocalciferol [id number] UNT Oral Capsule JEFF ([facility]) 0.5 ML dulaglutide 1.5 MG/ML Auto-Injector [Trulicity] JEFF ([facility]) Triamcinolone Acetonide 1 MG/ML Topical Cream JEFF ([facility]) Steglatro 5 mg tablet JEFF ([facility]) Simvastatin 10 MG Oral Tablet JEFF ([facility]) Docusate Sodium 50 MG / sennosides, NURSING HOME 8.6 MG Oral Tablet JEFF ([facility]) sennosides 8.6 mg-docusate sodium 50 mg capsule Take 2 capsules by oral route at bedtime. JEFF ([facility]) sennosides, NURSING HOME 8.6 MG Oral Tablet [Senna-Time] JEFF ([facility]) Propranolol Hydrochloride 20 MG Oral Tablet JEFF ([facility]) Prazosin 1 MG Oral Capsule A [facility] ([facility]) OneTouch Verio Flex Meter AT [place] ([facility]) OneTouch Delica Plus Lancet 33 gauge JEFF ([facility]) Mirtazapine 45 MG Oral Tablet JEFF ([facility]) Mirtazapine 15 MG Oral Tablet JEFF ([facility]) lamotrigine 25 MG Oral Tablet JEFF ([facility]) lamotrigine 100 MG Oral Tablet JEFF ([facility]) Ketoconazole 20 MG/ML Medicated Shampoo JEFF ([facility]) Famotidine 20 MG Oral Tablet JEFF ([facility]) Docusate Sodium 100 MG Oral Capsule [DOK] JEFF ([facility]) Clonidine Hydrochloride 0.2 MG Oral Tablet JEFF ([facility]) Clonazepam 1 MG Oral Tablet JEFF ([facility]) Clonazepam 0.5 MG Disintegrating Oral Tablet JEFF ([facility]) Clindamycin 150 MG Oral Capsule JEFF ([facility]) cefdinir 300 MG Oral Capsule JEFF ([facility]) buspirone hydrochloride 7.5 MG Oral Tablet JEFF ([facility]) buspirone hydrochloride 10 MG Oral Tablet JEFF ([facility]) benztropine mesylate 0.5 MG Oral Tablet JEFF ([facility]) benzonatate 200 MG Oral Capsule JEFF ([facility]) Azithromycin 250 MG Oral Tablet JEFF ([facility]) Amitriptyline Hydrochloride 75 MG Oral Tablet JEFF ([facility]) Amitriptyline Hydrochloride 50 MG Oral Tablet JEFF ([facility]) Isopropyl Alcohol 0.7 ML/ML Medicated Pad JEFF ([facility]) Ketoconazole 20 MG/ML Medicated Shampoo JEFF ([facility]) Famotidine 20 MG Oral Tablet JEFF ([facility]) Docusate Sodium 100 MG Oral Capsule [DOK] JEFF ([facility]) Clonidine Hydrochloride 0.2 MG Oral Tablet JEFF ([facility]) Clonazepam 1 MG Oral Tablet JEFF ([facility]) Clindamycin 150 MG Oral Capsule JEFF ([facility]) cefdinir 300 MG Oral Capsule JEFF ([facility]) buspirone hydrochloride 7.5 MG Oral Tablet JEFF ([facility]) buspirone hydrochloride 10 MG Oral Tablet JEFF ([facility]) benztropine mesylate 0.5 MG Oral Tablet JEFF ([facility]) benzonatate 200 MG Oral Capsule EJFF ([facility]) BD Ultra-Fine Short Pen Needle 31 gauge x 5/16" USE DIRECTED ONCE DAILY JEFF ([facility]) Azithromycin 250 MG Oral Tablet JEFF ([facility]) Amitriptyline Hydrochloride 75 MG Oral Tablet JEFF ([facility]) Amitriptyline Hydrochloride 50 MG Oral Tablet JEFF ([facility]) Isopropyl Alcohol 0.7 ML/ML Medicated Pad JEFF ([facility]) lamotrigine 100 MG Oral Tablet JEFF ([facility]) Ketoconazole 20 MG/ML Medicated Shampoo JEFF ([facility]) Famotidine 20 MG Oral Tablet JEFF ([facility]) Docusate Sodium 100 MG Oral Capsule [DOK] JEFF ([facility]) Clonidine Hydrochloride 0.2 MG Oral Tablet JEFF ([facility]) Clonazepam 1 MG Oral Tablet JEFF ([facility]) Clonazepam 0.5 MG Oral Tablet JEFF ([facility]) Clonazepam 0.5 MG Disintegrating Oral Tablet JEFF ([facility]) Clindamycin 150 MG Oral Capsule JEFF ([facility]) cefdinir 300 MG Oral Capsule JEFF ([facility]) buspirone hydrochloride 7.5 MG Oral Tablet JEFF ([facility]) buspirone hydrochloride 15 MG Oral Tablet JEFF ([facility]) buspirone hydrochloride 10 MG Oral Tablet JEFF ([facility]) benztropine mesylate 0.5 MG Oral Tablet JEFF ([facility]) benzonatate 200 MG Oral Capsule JEFF ([facility]) Azithromycin 250 MG Oral Tablet JEFF ([facility]) Amitriptyline Hydrochloride 75 MG Oral Tablet JEFF ([facility]) Amitriptyline Hydrochloride 50 MG Oral Tablet JEFF ([facility]) Isopropyl Alcohol 0.7 ML/ML Medicated Pad JEFF ([facility]) ziprasidone 60 MG Oral Capsule JEFF ([facility]) 0.5 ML dulaglutide 1.5 MG/ML Auto-Injector [Trulicity] JEFF ([facility]) Triamcinolone Acetonide 1 MG/ML Topical Cream JEFF ([facility]) Steglatro 5 mg tablet JEFF ([facility]) Simvastatin 10 MG Oral Tablet JEFF ([facility]) Docusate Sodium 50 MG / sennosides, NURSING HOME 8.6 MG Oral Tablet JEFF ([facility]) sennosides 8.6 mg-docusate sodium 50 mg capsule Take 2 capsules by oral route at bedtime. JEFF ([facility]) Propranolol Hydrochloride 20 MG Oral Tablet JEFF ([facility]) Mirtazapine 45 MG Oral Tablet JEFF ([facility]) Mirtazapine 15 MG Oral Tablet JEFF ([facility]) lamotrigine 25 MG Oral Tablet JEFF ([facility]) Ketoconazole 20 MG/ML Medicated Shampoo JEFF ([facility]) Famotidine 20 MG Oral Tablet JEFF ([facility]) Clonidine Hydrochloride 0.2 MG Oral Tablet JEFF ([facility]) Clonazepam 1 MG Oral Tablet JEFF ([facility]) cefdinir 300 MG Oral Capsule JEFF ([facility]) buspirone hydrochloride 7.5 MG Oral Tablet JEFF ([facility]) buspirone hydrochloride 10 MG Oral Tablet JEFF ([facility]) benztropine mesylate 0.5 MG Oral Tablet JEFF ([facility]) benzonatate 200 MG Oral Capsule JEFF ([facility]) Azithromycin 250 MG Oral Tablet JEFF ([facility]) Amitriptyline Hydrochloride 75 MG Oral Tablet JEFF ([facility]) Amitriptyline Hydrochloride 50 MG Oral Tablet JEFF ([facility]) ziprasidone 60 MG Oral Capsule JEFF ([facility]) 0.5 ML dulaglutide 1.5 MG/ML Auto-Injector [Trulicity] JEFF ([facility]) Triamcinolone Acetonide 1 MG/ML Topical Cream JEFF ([facility]) Steglatro 5 mg tablet JEFF ([facility]) Simvastatin 10 MG Oral Tablet JEFF ([facility]) Docusate Sodium 50 MG / sennosides, NURSING HOME 8.6 MG Oral Tablet JEFF ([facility]) sennosides 8.6 mg-docusate sodium 50 mg capsule Take 2 capsules by oral route at bedtime. JEFF ([facility]) buspirone hydrochloride 10 MG Oral Tablet JEFF ([facility]) benztropine mesylate 0.5 MG Oral Tablet JEFF ([facility]) benzonatate 200 MG Oral Capsule JEFF ([facility]) Azithromycin 250 MG Oral Tablet JEFF ([facility]) Amitriptyline Hydrochloride 75 MG Oral Tablet JEFF ([facility]) Amitriptyline Hydrochloride 50 MG Oral Tablet JEFF ([facility]) ziprasidone 60 MG Oral Capsule JEFF ([facility]) 0.5 ML dulaglutide 1.5 MG/ML Auto-Injector [Trulicity] JEFF ([facility]) Triamcinolone Acetonide 1 MG/ML Topical Cream JEFF ([facility]) Steglatro 5 mg tablet JEFF ([facility]) Simvastatin 10 MG Oral Tablet JEFF ([facility]) Docusate Sodium 50 MG / sennosides, NURSING HOME 8.6 MG Oral Tablet JEFF ([facility]) ziprasidone 60 MG Oral Capsule JEFF ([facility]) Ergocalciferol [id number] UNT Oral Capsule JEFF ([facility]) 0.5 ML dulaglutide 1.5 MG/ML Auto-Injector [Trulicity] JEFF ([facility]) Triamcinolone Acetonide 1 MG/ML Topical Cream JEFF ([facility]) Steglatro 5 mg tablet JEFF ([facility]) Simvastatin 10 MG Oral Tablet JEFF ([facility]) Docusate Sodium 50 MG / sennosides, NURSING HOME 8.6 MG Oral Tablet JEFF ([facility]) sennosides 8.6 mg-docusate sodium 50 mg capsule Take 2 capsules by oral route at bedtime. JEFF ([facility]) sennosides, NURSING HOME 8.6 MG Oral Tablet [Senna-Time] JEFF ([facility]) Propranolol Hydrochloride 20 MG Oral Tablet JEFF ([facility]) Prazosin 1 MG Oral Capsule A THENA ([facility]) OneTouch Verio test strips USE DIRECTED UP TO TWO TIMES A DAY JEFF ([facility]) OneTouch Verio Flex Meter AT [facility] ([facility]) OneTouch Delica Plus Lancet 33 gauge JEFF ([facility]) Mirtazapine 45 MG Oral Tablet JEFF ([facility]) Mirtazapine 15 MG Oral Tablet JEFF ([facility]) lamotrigine 25 MG Oral Tablet JEFF ([facility]) Ketoconazole 20 MG/ML Medicated Shampoo JEFF ([facility]) Famotidine 20 MG Oral Tablet JEFF ([facility]) Docusate Sodium 100 MG Oral Capsule [DOK] JEFF ([facility]) Clonidine Hydrochloride 0.2 MG Oral Tablet JEFF ([facility]) Clonazepam 1 MG Oral Tablet JEFF ([facility]) Clindamycin 150 MG Oral Capsule JEFF ([facility]) cefdinir 300 MG Oral Capsule JEFF ([facility]) buspirone hydrochloride 7.5 MG Oral Tablet JEFF ([facility]) buspirone hydrochloride 10 MG Oral Tablet JEFF ([facility]) benztropine mesylate 0.5 MG Oral Tablet JEFF ([facility]) benzonatate 200 MG Oral Capsule JEFF ([facility]) BD Ultra-Fine Short Pen Needle 31 gauge x 5/16" USE DIRECTED ONCE DAILY JEFF ([facility]) Azithromycin 250 MG Oral Tablet JEFF ([facility]) Amitriptyline Hydrochloride 75 MG Oral Tablet JEFF ([facility]) Amitriptyline Hydrochloride 50 MG Oral Tablet JEFF ([facility]) Isopropyl Alcohol 0.7 ML/ML Medicated Pad JEFF ([facility]) ziprasidone 60 MG Oral Capsule JEFF ([facility]) Ergocalciferol [id number] UNT Oral Capsule JEFF ([facility]) 0.5 ML dulaglutide 1.5 MG/ML Auto-Injector [Trulicity] JEFF ([facility]) Triamcinolone Acetonide 1 MG/ML Topical Cream JEFF ([facility]) Steglatro 5 mg tablet JEFF ([facility]) Simvastatin 10 MG Oral Tablet JEFF ([facility]) Docusate Sodium 50 MG / sennosides, NURSING HOME 8.6 MG Oral Tablet JEFF ([facility]) sennosides 8.6 mg-docusate sodium 50 mg capsule Take 2 capsules by oral route at bedtime. JEFF ([facility]) sennosides, NURSING HOME 8.6 MG Oral Tablet [Senna-Time] JEFF ([facility]) Propranolol Hydrochloride 20 MG Oral Tablet JEFF ([facility]) Prazosin 1 MG Oral Capsule A THENA ([facility]) OneTouch Verio test strips USE DIRECTED UP TO TWO TIMES A DAY [place] ([facility]) OneTouch Verio Flex Meter AT [facility] ([facility]) OneTouch Delica Plus Lancet 33 gauge JEFF ([facility]) Mirtazapine 45 MG Oral Tablet JEFF ([facility]) Mirtazapine 15 MG Oral Tablet JEFF ([facility]) lamotrigine 25 MG Oral Tablet JEFF ([facility]) sennosides 8.6 mg-docusate sodium 50 mg capsule Take 2 capsules by oral route at bedtime. JEFF ([facility]) Propranolol Hydrochloride 20 MG Oral Tablet JEFF ([facility]) Prazosin 1 MG Oral Capsule A THENA ([facility]) Mirtazapine 45 MG Oral Tablet JEFF ([facility]) Mirtazapine 15 MG Oral Tablet JEFF ([facility]) lamotrigine 25 MG Oral Tablet JEFF ([facility]) Ketoconazole 20 MG/ML Medicated Shampoo JEFF ([facility]) Famotidine 20 MG Oral Tablet JEFF ([facility]) Clonidine Hydrochloride 0.2 MG Oral Tablet JEFF ([facility]) Clonazepam 1 MG Oral Tablet JEFF ([facility]) Clonazepam 0.5 MG Oral Tablet JEFF ([facility]) cefdinir 300 MG Oral Capsule JEFF ([facility]) buspirone hydrochloride 7.5 MG Oral Tablet JEFF ([facility]) buspirone hydrochloride 10 MG Oral Tablet JEFF ([facility]) benztropine mesylate 0.5 MG Oral Tablet JEFF ([facility]) benzonatate 200 MG Oral Capsule JEFF ([facility]) Azithromycin 250 MG Oral Tablet JEFF ([facility]) Amitriptyline Hydrochloride 75 MG Oral Tablet JEFF ([facility]) Amitriptyline Hydrochloride 50 MG Oral Tablet JEFF ([facility]) Mirtazapine 45 MG Oral Tablet JEFF ([facility]) Mirtazapine 15 MG Oral Tablet JEFF ([facility]) Ketoconazole 20 MG/ML Medicated Shampoo JEFF ([facility]) Famotidine 20 MG Oral Tablet JEFF ([facility]) Clonidine Hydrochloride 0.2 MG Oral Tablet JEFF ([facility]) Clonazepam 1 MG Oral Tablet JE[facility] ([facility]) cefdinir 300 MG Oral Capsule JEFF ([facility]) buspirone hydrochloride 7.5 MG Oral Tablet JEFF ([facility]) buspirone hydrochloride 10 MG Oral Tablet JEFF ([facility]) benztropine mesylate 0.5 MG Oral Tablet JE[facility] ([facility]) benzonatate 200 MG Oral Capsule JEFF ([facility]) Azithromycin 250 MG Oral Tablet JE[facility] ([facility]) Amitriptyline Hydrochloride 75 MG Oral Tablet JE[facility] ([facility]) Amitriptyline Hydrochloride 50 MG Oral Tablet JEFF ([facility]) ziprasidone 60 MG Oral Capsule JEFF ([facility]) 0.5 ML dulaglutide 1.5 MG/ML Auto-Injector [Trulicity] JEFF ([facility]) Triamcinolone Acetonide 1 MG/ML Topical Cream JEFF ([facility]) Docusate Sodium 50 MG / sennosides, NURSING HOME 8.6 MG Oral Tablet JEFF ([facility]) sennosides 8.6 mg-docusate sodium 50 mg capsule Take 2 capsules by oral route at bedtime. JEFF ([facility]) Propranolol Hydrochloride 20 MG Oral Tablet JEFF ([facility]) Mirtazapine 45 MG Oral Tablet JEFF ([facility]) Mirtazapine 15 MG Oral Tablet JE[facility] ([facility]) Ketoconazole 20 MG/ML Medicated Shampoo JEFF ([facility]) Propranolol Hydrochloride 20 MG Oral Tablet JEFF ([facility]) Mirtazapine 45 MG Oral Tablet JE[facility] ([facility]) Mirtazapine 15 MG Oral Tablet JE[facility] ([facility]) lamotrigine 25 MG Oral Tablet JE[facility] ([facility]) Ketoconazole 20 MG/ML Medicated Shampoo JEFF ([facility]) Famotidine 20 MG Oral Tablet JEFF ([facility]) Clonidine Hydrochloride 0.2 MG Oral Tablet JE[facility] ([facility]) Clonazepam 1 MG Oral Tablet JE[facility] ([facility]) cefdinir 300 MG Oral Capsule JEFF ([facility]) buspirone hydrochloride 7.5 MG Oral Tablet JEFF ([facility]) Famotidine 20 MG Oral Tablet JEFF ([facility]) Clonidine Hydrochloride 0.2 MG Oral Tablet JE[facility] ([facility]) Clonazepam 1 MG Oral Tablet JE[facility] ([facility]) cefdinir 300 MG Oral Capsule JEFF ([facility]) buspirone hydrochloride 7.5 MG Oral Tablet JEFF ([facility]) buspirone hydrochloride 10 MG Oral Tablet JEFF ([facility]) benztropine mesylate 0.5 MG Oral Tablet JE[facility] ([facility]) benzonatate 200 MG Oral Capsule JEFF ([facility]) Azithromycin 250 MG Oral Tablet JE[facility] ([facility]) Amitriptyline Hydrochloride 75 MG Oral Tablet JE[facility] ([facility]) Amitriptyline Hydrochloride 50 MG Oral Tablet JE[facility] ([facility]) ziprasidone 60 MG Oral Capsule JEFF ([facility]) 0.5 ML dulaglutide 1.5 MG/ML Auto-Injector [Trulicity] JEFF ([facility]) Triamcinolone Acetonide 1 MG/ML Topical Cream JEFF ([facility]) Ketoconazole 20 MG/ML Medicated Shampoo JEFF ([facility]) Famotidine 20 MG Oral Tablet JEFF ([facility]) Clonidine Hydrochloride 0.2 MG Oral Tablet JE[facility] ([facility]) Clonazepam 1 MG Oral Tablet JE[facility] ([facility]) cefdinir 300 MG Oral Capsule JEFF ([facility]) buspirone hydrochloride 7.5 MG Oral Tablet JE[facility] ([facility]) buspirone hydrochloride 10 MG Oral Tablet JE[facility] ([facility]) benztropine mesylate 0.5 MG Oral Tablet JE[facility] ([facility]) benzonatate 200 MG Oral Capsule JEFF ([facility]) Azithromycin 250 MG Oral Tablet JE[facility] ([facility]) Amitriptyline Hydrochloride 75 MG Oral Tablet JE[facility] ([facility]) Amitriptyline Hydrochloride 50 MG Oral Tablet JE[facility] ([facility]) ziprasidone 60 MG Oral Capsule JE[facility] ([facility]) 0.5 ML dulaglutide 1.5 MG/ML Auto-Injector [Trulicity] JEFF ([facility]) Triamcinolone Acetonide 1 MG/ML Topical Cream JEFF ([facility]) Docusate Sodium 50 MG / sennosides, NURSING HOME 8.6 MG Oral Tablet JE[facility] ([facility]) sennosides 8.6 mg-docusate sodium 50 mg capsule Take 2 capsules by oral route at bedtime. JEFF ([facility]) Propranolol Hydrochloride 20 MG Oral Tablet JEFF ([facility]) ziprasidone 60 MG Oral Capsule JEFF ([facility]) 0.5 ML dulaglutide 1.5 MG/ML Auto-Injector [Trulicity] JEFF ([facility]) Triamcinolone Acetonide 1 MG/ML Topical Cream JEFF ([facility]) Docusate Sodium 50 MG / sennosides, NURSING HOME 8.6 MG Oral Tablet JE[facility] ([facility]) sennosides 8.6 mg-docusate sodium 50 mg capsule Take 2 capsules by oral route at bedtime. JEFF ([facility]) Propranolol Hydrochloride 20 MG Oral Tablet JEFF ([facility]) Mirtazapine 45 MG Oral Tablet [facility] ([facility]) Mirtazapine 15 MG Oral Tablet [facility] ([facility]) Ketoconazole 20 MG/ML Medicated Shampoo JEFF ([facility]) Famotidine 20 MG Oral Tablet JE[facility] ([facility]) Clonidine Hydrochloride 0.2 MG Oral Tablet JE[facility] ([facility]) Clonazepam 1 MG Oral Tablet JE[facility] ([facility]) Docusate Sodium 50 MG / sennosides, NURSING HOME 8.6 MG Oral Tablet JE[facility] ([facility]) sennosides 8.6 mg-docusate sodium 50 mg capsule Take 2 capsules by oral route at bedtime. JEFF ([facility]) Propranolol Hydrochloride 20 MG Oral Tablet JE[facility] ([facility]) Mirtazapine 45 MG Oral Tablet [facility] ([facility]) Mirtazapine 15 MG Oral Tablet [facility] ([facility]) Ketoconazole 20 MG/ML Medicated Shampoo JEFF ([facility]) Famotidine 20 MG Oral Tablet JE[facility] ([facility]) Clonidine Hydrochloride 0.2 MG Oral Tablet JE[facility] ([facility]) Clonazepam 1 MG Oral Tablet JE[facility] ([facility]) cefdinir 300 MG Oral Capsule JEFF ([facility]) buspirone hydrochloride 7.5 MG Oral Tablet JE[facility] ([facility]) buspirone hydrochloride 10 MG Oral Tablet JE[facility] ([facility]) benztropine mesylate 0.5 MG Oral Tablet JE[facility] ([facility]) benzonatate 200 MG Oral Capsule JE[facility] ([facility]) Azithromycin 250 MG Oral Tablet JE[facility] ([facility]) Amitriptyline Hydrochloride 75 MG Oral Tablet JE[facility] ([facility]) Amitriptyline Hydrochloride 50 MG Oral Tablet JE[facility] ([facility]) Docusate Sodium 50 MG / sennosides, NURSING HOME 8.6 MG Oral Tablet JE[facility] ([facility]) sennosides 8.6 mg-docusate sodium 50 mg capsule Take 2 capsules by oral route at bedtime. JEFF ([facility]) Propranolol Hydrochloride 20 MG Oral Tablet JEFF ([facility]) Mirtazapine 45 MG Oral Tablet [facility] ([facility]) Mirtazapine 15 MG Oral Tablet JE[facility] ([facility]) cefdinir 300 MG Oral Capsule JEFF ([facility]) buspirone hydrochloride 7.5 MG Oral Tablet JE[facility] ([facility]) buspirone hydrochloride 10 MG Oral Tablet JE[facility] ([facility]) benztropine mesylate 0.5 MG Oral Tablet JE[facility] ([facility]) benzonatate 200 MG Oral Capsule JE[facility] ([facility]) Azithromycin 250 MG Oral Tablet [facility] ([facility]) Amitriptyline Hydrochloride 75 MG Oral Tablet JE[facility] ([facility]) Amitriptyline Hydrochloride 50 MG Oral Tablet JE[facility] ([facility]) ziprasidone 60 MG Oral Capsule JE[facility] ([facility]) 0.5 ML dulaglutide 1.5 MG/ML Auto-Injector [Trulicity] JEFF ([facility]) Triamcinolone Acetonide 1 MG/ML Topical Cream JEFF ([facility])
== END 2021-08-19 01:46 | disposition left against medical advice (07) ==
LOC: M ED 00:30
DX: Z53.29 Procedure and treatment not carried out because of patient's decision for other reasons (principal)

== ENCOUNTER 2021-08-19 11:07 | Emergency (ER) | payer OTHER ==
[~2021-08-19] VITALS: Ht 172.7 cm; Wt 112.2 kg
--- OUTSIDE RECORDS SUMMARY | 2021-08-19 11:20 | CCD ---
Author Author [facility] Address Unknown Phone Unavailable Support Name Relationship Address Phone Aleyda Goncalves Next Of Kin Unknown Unavailable Kinza Fritz Next Of Kin [address] [place] [address] Leela Castaneda Next Of Kin [address] [place], [place] [phone] Steven Veloz MD Next Of Kin [address] [place] [address] UNanci Next Of Kin Unknown Unavailable [place] [address] GERRY VARGAS Next Of Kin Unknown GERRY OJEDA Next Of Kin [address] [facility] [place] [address] GERRY MONIQUE Next Of Kin [address] [place] [address] Selena MUHAMMAD, Carol Next Of Kin [address] [place] [address] NONE, NONE [place] [address] Unavailable KACY GONCALVES Next Of Kin [address] [facility] [place] [address] [place] [address] NOBODY, TIME AT Next Of Kin [address] [place] [address] ALEYDA GONCALVES Next Of Kin [address] [facility] [place] [address] STEPHANIE, [place] [address] ALANNA HATFIELD Next Of Kin [address] [facility] [address] [place] [id number] ISAEL [place] [address] DISABLED Next Of Kin Unknown GERRY OJEDA ECON Unknown Unavailable Aleyda Louie [place] [address] [place] [address] Unavailable ALEYDA GONCALVES ECON [address] [place] [address] [phone] Care Team Providers Care Used Car Renovator Name Role Phone Shiv Veloz MD Unavailable [...] Shiv Harris MD Unavailable Unavailable Kinza Yanes TEMPERING KILN TENDER TEMPERING KILN TENDER Unavailable Unavailable Montenegro, R Russell PRODUCT SAFETY AND STANDARDS ENGINEER Unavailable Unavailable Montenegro, R Russell PRODUCT SAFETY AND STANDARDS ENGINEER Unavailable Unavailable Montenegro, R Russell PRODUCT SAFETY AND STANDARDS ENGINEER Unavailable Unavailable PABLO, B LIAM PRODUCT SAFETY AND STANDARDS ENGINEER Unavailable Unavailable PABLO, B LIAM PRODUCT SAFETY AND STANDARDS ENGINEER Unavailable Unavailable PABLO, B LIAM PRODUCT SAFETY AND STANDARDS ENGINEER Unavailable Unavailable PABLO, B LIAM PRODUCT SAFETY AND STANDARDS ENGINEER Unavailable Unavailable PABLO, B LIAM PRODUCT SAFETY AND STANDARDS ENGINEER Unavailable Unavailable PABLO, B LIAM PRODUCT SAFETY AND STANDARDS ENGINEER Unavailable Unavailable PABLO, B LIAM PRODUCT SAFETY AND STANDARDS ENGINEER Unavailable Unavailable PABLO, B LIAM PRODUCT SAFETY AND STANDARDS ENGINEER Unavailable Unavailable PABLO, B LIAM PRODUCT SAFETY AND STANDARDS ENGINEER Unavailable Unavailable PABLO, B LIAM PRODUCT SAFETY AND STANDARDS ENGINEER Unavailable Unavailable PABLO, B LIAM PRODUCT SAFETY AND STANDARDS ENGINEER Unavailable Unavailable PABLO, B LIAM PRODUCT SAFETY AND STANDARDS ENGINEER Unavailable Unavailable PABLO, B LIAM PRODUCT SAFETY AND STANDARDS ENGINEER Unavailable Unavailable PABLO, B LIAM PRODUCT SAFETY AND STANDARDS ENGINEER Unavailable Unavailable PABLO, B LIAM PRODUCT SAFETY AND STANDARDS ENGINEER Unavailable Unavailable PABLO, B LIAM PRODUCT SAFETY AND STANDARDS ENGINEER Unavailable Unavailable PABLO, B LIAM PRODUCT SAFETY AND STANDARDS ENGINEER Unavailable Unavailable PABLO, B LIAM PRODUCT SAFETY AND STANDARDS ENGINEER Unavailable Unavailable PABLO, B LIAM PRODUCT SAFETY AND STANDARDS ENGINEER Unavailable Unavailable PABLO, B LIAM PRODUCT SAFETY AND STANDARDS ENGINEER Unavailable Unavailable PABLO, B LIAM PRODUCT SAFETY AND STANDARDS ENGINEER Unavailable Unavailable PABLO, B LIAM PRODUCT SAFETY AND STANDARDS ENGINEER Unavailable Unavailable PABLO, B LIAM PRODUCT SAFETY AND STANDARDS ENGINEER Unavailable Unavailable PABLO, B LIAM PRODUCT SAFETY AND STANDARDS ENGINEER Unavailable Unavailable PABLO, B LIAM PRODUCT SAFETY AND STANDARDS ENGINEER Unavailable Unavailable PABLO, B LIAM PRODUCT SAFETY AND STANDARDS ENGINEER Unavailable Unavailable PABLO, B LIAM PRODUCT SAFETY AND STANDARDS ENGINEER Unavailable Unavailable PABLO, B LIAM PRODUCT SAFETY AND STANDARDS ENGINEER Unavailable Unavailable PABLO, B LIAM PRODUCT SAFETY AND STANDARDS ENGINEER Unavailable Unavailable PABLO, B LIAM PRODUCT SAFETY AND STANDARDS ENGINEER Unavailable Unavailable PABLO, B LIAM PRODUCT SAFETY AND STANDARDS ENGINEER Unavailable Unavailable PABLO, B LIAM PRODUCT SAFETY AND STANDARDS ENGINEER Unavailable Unavailable PABLO, B LIAM PRODUCT SAFETY AND STANDARDS ENGINEER Unavailable Unavailable PABLO, B LIAM PRODUCT SAFETY AND STANDARDS ENGINEER Unavailable Unavailable PABLO, B LIAM PRODUCT SAFETY AND STANDARDS ENGINEER Unavailable Unavailable PABLO, B LIAM PRODUCT SAFETY AND STANDARDS ENGINEER Unavailable Unavailable PABLO, B LIAM PRODUCT SAFETY AND STANDARDS ENGINEER Unavailable Unavailable PABLO, B LIAM PRODUCT SAFETY AND STANDARDS ENGINEER Unavailable Unavailable PABLO, B LIAM PRODUCT SAFETY AND STANDARDS ENGINEER Unavailable Unavailable PABLO, B LIAM PRODUCT SAFETY AND STANDARDS ENGINEER Unavailable Unavailable PABLO, B LIAM PRODUCT SAFETY AND STANDARDS ENGINEER Unavailable Unavailable PABLO, B LIAM PRODUCT SAFETY AND STANDARDS ENGINEER Unavailable Unavailable PABLO, B LIAM PRODUCT SAFETY AND STANDARDS ENGINEER Unavailable Unavailable PABLO, B LIAM PRODUCT SAFETY AND STANDARDS ENGINEER Unavailable Unavailable PABLO, B LIAM PRODUCT SAFETY AND STANDARDS ENGINEER Unavailable Unavailable PABLO, B LIAM PRODUCT SAFETY AND STANDARDS ENGINEER Unavailable Unavailable PABLO, B LIAM PRODUCT SAFETY AND STANDARDS ENGINEER Unavailable Unavailable PABLO, B LIAM PRODUCT SAFETY AND STANDARDS ENGINEER Unavailable Unavailable PABLO, B LIAM PRODUCT SAFETY AND STANDARDS ENGINEER Unavailable Unavailable PABLO, B LIAM PRODUCT SAFETY AND STANDARDS ENGINEER Unavailable Unavailable PABLO, B LIAM PRODUCT SAFETY AND STANDARDS ENGINEER Unavailable Unavailable PABLO, B LIAM PRODUCT SAFETY AND STANDARDS ENGINEER Unavailable Unavailable PABLO, B LIAM PRODUCT SAFETY AND STANDARDS ENGINEER Unavailable Unavailable PABLO, B LIAM PRODUCT SAFETY AND STANDARDS ENGINEER Unavailable Unavailable PABLO, B LIAM PRODUCT SAFETY AND STANDARDS ENGINEER Unavailable Unavailable PABLO, B LIAM PRODUCT SAFETY AND STANDARDS ENGINEER Unavailable Unavailable PABLO, B LIAM PRODUCT SAFETY AND STANDARDS ENGINEER Unavailable Unavailable PABLO, B LIAM PRODUCT SAFETY AND STANDARDS ENGINEER Unavailable Unavailable PABLO, B LIAM PRODUCT SAFETY AND STANDARDS ENGINEER Unavailable Unavailable PABLO, B LIAM PRODUCT SAFETY AND STANDARDS ENGINEER Unavailable Unavailable PABLO, B LIAM PRODUCT SAFETY AND STANDARDS ENGINEER Unavailable Unavailable PABLO, B LIAM PRODUCT SAFETY AND STANDARDS ENGINEER Unavailable Unavailable MAJAK, Kim VIRGEN DPM Unavailable [...] Unavailable Corey Basilio Unavailable Ricky, Cristy Adrienne PMH-PRODUCT SAFETY AND STANDARDS ENGINEER Unavailable Unavailable Ricky, K Adrienne PMH-PRODUCT SAFETY AND STANDARDS ENGINEER Unavailable Unavailable [place], K Adrienne PMH-PRODUCT SAFETY AND STANDARDS ENGINEER Unavailable Unavailable Ricky, K Adrienne PMH-PRODUCT SAFETY AND STANDARDS ENGINEER Unavailable Unavailable [place], K Adrienne PMH-PRODUCT SAFETY AND STANDARDS ENGINEER Unavailable Unavailable Ricky, K Adrienne PMH-PRODUCT SAFETY AND STANDARDS ENGINEER Unavailable Unavailable Ricky, K Adrienne PMH-PRODUCT SAFETY AND STANDARDS ENGINEER Unavailable Unavailable Ricky, K Adrienne PMH-PRODUCT SAFETY AND STANDARDS ENGINEER Unavailable Unavailable Cesilia Narvaez Unavailable Guido Yanes Kinza TEMPERING KILN TENDER-BC Unavailable Unavailable Joaquín, F Kinza TEMPERING KILN TENDER-BC Unavailable Unavailable Joaquín, F Kinza TEMPERING KILN TENDER-BC Unavailable Unavailable Joaquín, F Kinza TEMPERING KILN TENDER-BC Unavailable Unavailable Yanes, F Kinza TEMPERING KILN TENDER-BC Unavailable Unavailable Joaquín, F Kinza TEMPERING KILN TENDER-BC Unavailable Unavailable Yanes, F Kinza TEMPERING KILN TENDER-BC Unavailable Unavailable Yanes, F Kinza TEMPERING KILN TENDER-BC Unavailable Unavailable Yanes, F Kinza TEMPERING KILN TENDER-BC Unavailable Unavailable Yanes, F Kinza TEMPERING KILN TENDER-BC Unavailable Unavailable Yanes, F Kinza TEMPERING KILN TENDER-BC Unavailable Unavailable Joaquín, F Kinza TEMPERING KILN TENDER-BC Unavailable Unavailable Yanes, F Kinza TEMPERING KILN TENDER-BC Unavailable Unavailable Guido Yanes Kinza TEMPERING KILN TENDER-BC Unavailable Unavailable Guido Yanes TEMPERING KILN TENDER-BC Unavailable Unavailable Guido Yanes TEMPERING KILN TENDER-BC Unavailable Unavailable Guido Yanes TEMPERING KILN TENDER-BC Unavailable Unavailable Guido Yanes Kinza TEMPERING KILN TENDER-BC Unavailable Unavailable Guido Yanes Kinza TEMPERING KILN TENDER-BC Unavailable Unavailable Guido Yanes Kinza TEMPERING KILN TENDER-BC Unavailable Unavailable Guido Yanes TEMPERING KILN TENDER-BC Unavailable Unavailable Guido Yanes Kinza TEMPERING KILN TENDER-BC Unavailable Unavailable Guido Yanes Kinza TEMPERING KILN TENDER-BC Unavailable Unavailable Scordo, M Whitney PA Unavailable [...] is protected by Article 27-F of the [facility] Public Health law. If you continue you may have access to information: Regarding HIV / AIDS; Provided by facilities licensed or operated by the [facility] Office of Mental Health; or Provided by the [facility] Office for People With Developmental Disabilities. If such information is present, then the following [facility] mandated warning applies: This information has been [...] to substance Penicillins Penicillins Active [facility] ([facility]) Propensity to adverse reactions to substance chlorpromazine Chlorpromazine hydrochloride 100 MG Oral Tablet Active [facility] ([facility]) Family History Family Member Name Family Member Gender Family Member Status Date o f Status Description Data Source(s) Unknown Unknown Problem [facility] ([facility], ) Encounters Encounter Providers Location Date Indications Data Source(s ) Steven Veloz MD: [address] [place] [phone], Ph. Attender: Steven Veloz MD [facility] 07/19/2021 12:00:00 AM EDT JEFF ([facility]) Extended Individual Psychotherapy - 45 min Attender: [facility] 07/02/2021 10:45:00 AM EDT - 07/02/2021 10:45:00 AM EDT [facility] ([facility]) Attender: [facility] 07/02/2021 12:00:00 AM EDT [facility] ([facility]) TEMPMHCTelemed 30" Psychotherapy Attender: [facility] 06/14/2021 12:30:00 PM EDT - 06/14/2021 12:30:00 PM EDT [facility] ([facility]) Attender: [facility] 06/14/2021 12:00:00 AM EDT [facility] ([facility]) Steven Veloz MD: [address] [place] [phone], Ph. Attender: Steven Veloz MD [facility] 06/12/2021 12:00:00 AM EDT JEFF ([facility]) Steven Veloz MD: [address] [place] [phone], Ph. Attender: Steven Veloz MD [facility] 06/12/2021 12:00:00 AM EDT JEFF ([facility]) Brief Individual Psychotherapy - 30 min Attender: [facility] 05/31/2021 12:30:00 PM EDT - 05/31/2021 12:30:00 PM EDT [facility] ([facility]) Attender: Corey Basilio 05/31/2021 12:00:00 AM EDT [facility] ([facility]) Outpatient Attender: Russell Montenegro NP [facility] 05/30/2021 10:45:00 AM EDT - 05/30/2021 10:45:00 AM EDT [facility] ([facility]) Attender: Russell Montenegro NP 05/30/2021 12:00:00 AM EDT [facility] ([facility]) Steven Veloz MD: [address] [place] [address], Ph. Attender: Steven Veloz MD [facility] 05/02/2021 12:00:00 AM EDT JEFF ([facility]) Steven Veloz MD: [address] [place] [phone], Ph. Attender: Steven Veloz MD [facility] 05/02/2021 12:00:00 AM EDT JEFF ([facility]) Steven Veloz MD: [address] [place] [phone], Ph. Attender: Steven Veloz MD [facility] 05/02/2021 12:00:00 AM EDT JEFF ([facility]) [id number]"Psychotherapy Attender: Corey Basilio [facility] 05/01/2021 01:00:00 AM EDT - 05/01/2021 01:00:00 AM EDT [facility] ([facility]) Attender: Corey Basilio 05/01/2021 12:00:00 AM EDT [facility] ([facility]) [place] [address] [facility] [address] 04/03/2021 12:00:00 AM EDT eCW1 ([facility]) Extended Individual Psychotherapy - 45 min Attender: Corey Basilio [facility] 03/26/2021 10:45:00 AM EDT - 03/26/2021 10:45:00 AM EDT [facility] ([facility]) Attender: Corey Basilio 03/26/2021 12:00:00 AM EDT [facility] ([facility]) Steven Veloz MD: [address] [place] [address], Ph. Attender: Steven Veloz MD [facility] 03/22/2021 12:00:00 AM EDT JEFF ([facility]) Steven Veloz MD: [address] [place] [address], Ph. Attender: Steven Veloz MD [facility] 03/22/2021 12:00:00 AM EDT JEFF ([facility]) Steven Veloz MD: [address] [place] [address]6 [address], Ph. Attender: Steven Veloz MD [facility] 03/22/2021 12:00:00 AM EDT JEFF ([facility]) Steven Veloz MD: [address] [place] [address], Ph. Attender: Steven Veloz MD [facility] 03/22/2021 12:00:00 AM EDT JEFF ([facility]) Steven Veloz MD: [address] [place] [address], Ph. Attender: Steven Veloz MD [facility] 03/22/2021 12:00:00 AM EDT JEFF ([facility]) Steven Veloz MD: [address] [place] [address], Ph. Attender: Steven Veloz MD [facility] 03/22/2021 12:00:00 AM EDT JEFF ([facility]) Outpatient Attender: PARAM VENTURA [facility] 02/11 09:45:00 AM EDT MEDENT ([facility] Whitney Flores PA-C: [address], [place] [address], Ph. Attender: Whitney BOTELLO [facility] 03/02/2021 12:00:00 AM EDT OKEM[facility] ([facility]) Whitney Flores PA-C: [address], [place] [address], Ph. Attender: Whitney BOTELLO [facility] 03/02/2021 12:00:00 AM EDT [facility] ([facility]) Whitney Flores PA-C: [address], [place] [address], Ph. Attender: Whitney BOTELLO [facility] 03/02/2021 12:00:00 AM EDT [facility] ([facility]) Whitney Flores PA-C: [address], [place] [address], Ph. Attender: Whitney BOTELLO [facility] 03/02/2021 12:00:00 AM EDT [facility] ([facility]) Whitney Flores PA-C: [address], [place] [address], Ph. Attender: Whitney BOTELLO [facility] 03/02/2021 12:00:00 AM EDT [facility] ([facility]) Whitney Flores PA-C: [address], [place] [address], Ph. Attender: Whitney BOTELLO [facility] 03/02/2021 12:00:00 AM EDT JEFF ([facility]) Whitney Flores PA-C: [address] [place] [address], Ph. Attender: Whitney BOTELLO [facility] 03/02/2021 12:00:00 AM EDT JEFF ([facility]) Extended Individual Psychotherapy - 45 min Attender: [facility] Chetna [facility] 02/26/2021 12:00:00 PM EDT - 02/26/2021 12:00:00 PM EDT [facility] ([facility] Attender: Corey Basilio 02/26/2021 12:00:00 AM EDT [facility] ([facility]) Unknown [address] [facility], [facility] [address] 02/21/2021 12:00:00 AM EDT eCW1 ([facility]) Steven Veloz MD: [address] [place] [phone], Ph. Attender: Steven Veloz MD [facility] 02/12/2021 12:00:00 AM EDT JEFF ([facility]) Steven Veloz MD: [address] [place] [address], Ph. Attender: Steven Veloz MD [facility] 02/12/2021 12:00:00 AM EDT JEFF ([facility]) Steven Veloz MD: [address] [place] [phone], Ph. Attender: Steven Veloz MD [facility] 02/12/2021 12:00:00 AM EDT JEFF ([facility]) Steven Veloz MD: [address] [place] [address]-0 [address], Ph. Attender: Steven Veloz MD [facility] 02/12/2021 12:00:00 AM EDT JEFF ([facility]) Steven Veloz MD: [address] [place] [address], Ph. Attender: Steven Veloz MD [facility] 02/12/2021 12:00:00 AM EDT JEFF ([facility]) Steven Veloz MD: [address] [place] [address], Ph. Attender: Steven Veloz MD [facility] 02/12/2021 12:00:00 AM EDT JEFF ([facility]) Steven Veloz MD: [address] [place] [address]0 [address], Ph. Attender: Steven Veloz MD [facility] 02/12/2021 12:00:00 AM EDT JEFF ([facility]) Steven Veloz MD: [address] [place] [address]-8 [address], Ph. Attender: Steven Veloz MD [facility] 02/12/2021 12:00:00 AM EDT JEFF ([facility]) Steven Veloz MD: [address] [place] [address]-2 [address], Ph. Attender: Steven Veloz MD [facility] 02/12/2021 12:00:00 AM EDT JEFF ([facility]) Brief Individual Psychotherapy - 30 min Attender: Corey Basilio [facility] 02/07/2021 11:30:00 AM EDT - 02/07/2021 11:30:00 AM EDT [facility] ([facility]) Attender: Corey Basilio 02/07/2021 12:00:00 AM EDT [facility] ([facility]) [place] [address] [facility] [address] 01/24/2021 12:00:00 AM EDT eCW1 ([facility]) [id number]"Psychotherapy Attender: Corey Basilio [facility] unty Alf 01/18/2021 06:00:00 AM EDT - 01/18/2021 06:00:00 AM EDT [facility] ([facility]) Attender: Corey Basilio 01/18/2021 12:00:00 AM EDT [facility] ([facility]) Steven Veloz MD: [address] [place] [address], Ph. Attender: Steven Veloz MD [facility] 01/09/2021 12:00:00 AM EDT JEFF ([facility]) Steven Veloz MD: [address] [place] [address], Ph. Attender: Steven Veloz MD [facility] 01/09/2021 12:00:00 AM EDT JEFF ([facility]) Steven Veloz MD: [address] [place] [address]-5 [address], Ph. Attender: Steven Veloz MD [facility] 01/09/2021 12:00:00 AM EDT JEFF ([facility]) Steven Veloz MD: [address] [place] [address]-5 504, Ph. Attender: Steven Veloz MD [facility] 01/09/2021 12:00:00 AM EDT JEFF ([facility]) Steven Veloz MD: [address] [place] [address]-8 [address], Ph. Attender: Steven Veloz MD [facility] 01/09/2021 12:00:00 AM EDT JEFF ([facility]) Steven Veloz MD: [address] [place] [address]-4 504, Ph. Attender: Steven Veloz MD [facility] 01/09/2021 12:00:00 AM EDT JEFF ([facility]) Steven Veloz MD: [address] [place] [address]-2 504, Ph. Attender: Steven Veloz MD [facility] 01/09/2021 12:00:00 AM EDT JEFF ([facility]) Steven Veloz MD: [address] [place] [address]-0 504, Ph. Attender: Steven Veloz MD [facility] 01/09/2021 12:00:00 AM EDT JEFF ([facility]) Steven Veloz MD: [address] [place] [address]-1 504, Ph. Attender: Steven Veloz MD [facility] 01/09/2021 12:00:00 AM EDT JEFF ([facility]) Steven Veloz MD: [address] [place] [address]-2 504, Ph. Attender: Steven Veloz MD [facility] 01/09/2021 12:00:00 AM EDT JEFF ([facility]) Extended Individual Psychotherapy - 45 min Attender: Corey Basilio [facility] 12/28/2020 12:00:00 PM EDT - 12/28/2020 12:00:00 PM EDT [facility] ([facility]) Attender: Corey Basilio 12/28/2020 12:00:00 AM EDT [facility] ([facility]) Steven Veloz MD: [address] [place] [address]-0 [address], Ph. Attender: Steven Veloz MD [facility] 12/14/2020 12:00:00 AM EST JEFF ([facility]) Steven Veloz MD: [address] [place] [address]-5 [address], Ph. Attender: Steven Veloz MD [facility] 12/14/2020 12:00:00 AM EST JEFF ([facility]) Steven Veloz MD: [address] [place] [address]-7 [address], Ph. Attender: Steven Veloz MD [facility] 12/14/2020 12:00:00 AM EST JEFF ([facility]) Steven Veloz MD: [address] [place] [address]-0 504, Ph. Attender: Steven Veloz MD [facility] 12/14/2020 12:00:00 AM EST JEFF ([facility]) Steven Veloz MD: [address] [place] [address]-8 504, Ph. Attender: Steven Veloz MD [facility] 12/14/2020 12:00:00 AM EST JEFF ([facility]) Steven Veloz MD: [address] [place] [address]-0 504, Ph. Attender: Steven Veloz MD [facility] 12/14/2020 12:00:00 AM EST JEFF ([facility]) Steven Veloz MD: [address] [place] [address]-3 504, Ph. Attender: Steven Veloz MD [facility] 12/14/2020 12:00:00 AM EST JEFF ([facility]) Steven Veloz MD: [address] [place] [address]-1 504, Ph. Attender: Steven Veloz MD [facility] 12/14/2020 12:00:00 AM EST JEFF ([facility]) Steven Veloz MD: [address] [place] [address]-6 504, Ph. Attender: Steven Veloz MD [facility] 12/14/2020 12:00:00 AM EST JEFF ([facility]) Steven Veloz MD: [address] [place] [address]-7 504, Ph. Attender: Steven Veloz MD [facility] 12/14/2020 12:00:00 AM EST JEFF ([facility]) Steven Veloz MD: [address] [place] [address]-4 504, Ph. Attender: Steven Veloz MD [facility] 12/14/2020 12:00:00 AM EST JEFF ([facility]) Outpatient Attender: Adrienne García [facility]-PRODUCT SAFETY AND STANDARDS ENGINEER [facility] 12/11/2020 09:30:00 AM EST - 12/11/2020 09:30:00 AM EST [facility] ([facility]) Attender: Adrienne García [facility]-[employer] SAFET[employer] AND STANDARDS ENGINEER 12/11/2020 12: 00:00 AM EST [facility] ([facility]) Extended Individual Psychotherapy - 45 min Attender: Glenna Chetna [facility] 12/07/2020 12:00:00 PM EST - 12/07/2020 12:00:00 PM EST [facility] ([facility]) Attender: Corey Basilio 12/07/2020 12:00:00 AM EST [facility] ([facility]) Outpatient [facility] [address] 12/06/2020 12:00:00 AM EST eCW1 ([facility]) Outpatient Attender: LIAM SHAH PRODUCT SAFETY AND STANDARDS ENGINEER Physical Therapy 02:30:00 PM EST MEDENT ([facility]) Steven Veloz MD: [address] [place] [address]-5 [address], Ph. Attender: Steven Veloz MD [facility] [facility] 11/10/2020 12:00:00 AM EST JEFF ([facility]) Steven Veloz MD: [address] [place] [address], Ph. Attender: Steven Veloz MD [facility] 11/10/2020 12:00:00 AM EST JEFF ([facility]) Steven Veloz MD: [address] [place] [address], Ph. Attender: Steven Veloz MD [facility] 11/10/2020 12:00:00 AM EST JEFF ([facility]) Steven Veloz MD: [address] [place] [address]2 504, Ph. Attender: Steven Veloz MD [facility] 11/10/2020 12:00:00 AM EST JEFF ([facility]) Steven Veloz MD: [address] [place] [address]1 504, Ph. Attender: Steven Veloz MD [facility] 11/10/2020 12:00:00 AM EST JEFF ([facility]) Steven Veloz MD: [address] [place] [address], Ph. Attender: Steven Veloz MD [facility] 11/10/2020 12:00:00 AM EST JEFF ([facility]) Steven Veloz MD: [address] [place] [address], Ph. Attender: Steven Veloz MD [facility] 11/10/2020 12:00:00 AM EST JEFF ([facility]) Steven Veloz MD: [address] [place] [address] 504, Ph. Attender: Steven Veloz MD [facility] 11/10/2020 12:00:00 AM EST JEFF ([facility]) Steven Veloz MD: [address] [place] [address], Ph. Attender: Steven Veloz MD [facility] 11/10/2020 12:00:00 AM EST JEFF ([facility]) Steven Veloz MD: [address] [place] [phone], Ph. Attender: Steven Veloz MD [facility] 11/10/2020 12:00:00 AM EST JEFF ([facility]) Steven Veloz MD: [address] [place] [address] 504, Ph. Attender: Steven Veloz MD [facility] 11/10/2020 12:00:00 AM EST JEFF ([facility]) Steven Veloz MD: [address] [place] [address], Ph. Attender: Steven Veloz MD [facility] 11/10/2020 12:00:00 AM EST JEFF ([facility]) TEMPMHCTelemed 30" Psychotherapy Attender: Corey Basilio [facility] 11/07/2020 12:00:00 PM EST - 11/07/2020 12:00:00 PM EST [facility] ([facility]) Attender: Corey Basilio 11/07/2020 12:00:00 AM EST [facility] ([facility]) Outpatient [address] [facility] [place] [address] 11/01/2020 12:00:00 AM EST eCW1 ([facility]) Outpatient Attender: Adrienne García [facility] [employer] ENGINEER [facility] 10/25/2020 10:00:00 AM EST - 10/25/2020 10:00:00 AM EST [facility] ([facility]) Attender: Adrienne García [facility] ENGINE[employer] 10/25/2020 12: 00:00 AM EST [facility] ([facility]) Extended Individual Psychotherapy - 45 min [facility]20[facility] 12:00:00 PM EST - 10/20/2020 12:00:00 PM EST [facility] ([facility]) Attender: Corey Basilio 10/20/2020 12:00:00 AM EST [facility] ([facility]) Outpatient Attender: LIAM SHAH NP Physical Therapy 12:15:00 PM EST MEDENT ([facility]) Unknown [id number] [facility] [place] [address] 10/16/2020 12:00:00 AM EST eCW1 ([facility]) Steven Veloz MD: [address] [place] [phone], Ph. Attender: Steven Veloz MD [facility] 10/03/2020 12:00:00 AM EST JEFF ([facility]) Steven Veloz MD: [address] [place] [phone], Ph. Attender: Steven Veloz MD [facility] 10/03/2020 12:00:00 AM EST JEFF ([facility]) Steven Veloz MD: [address] [place] [phone], Ph. Attender: Steven Veloz MD [facility] 10/03/2020 12:00:00 AM EST JEFF ([facility]) Steven Veloz MD: [address] [place] [address], Ph. Attender: Steven Veloz MD [facility] 10/03/2020 12:00:00 AM EST JEFF ([facility]) Steven Veloz MD: [address] [place] [address], Ph. Attender: Steven Veloz MD [facility] 10/03/2020 12:00:00 AM EST JEFF ([facility]) Steven Veloz MD: [address] [place] [address], Ph. Attender: Steven Veloz MD [facility] 10/03/2020 12:00:00 AM EST JEFF ([facility]) Steven Veloz MD: [address] [place] [address], Ph. Attender: Steven Veloz MD [facility] 10/03/2020 12:00:00 AM EST JEFF ([facility]) Steven Veloz MD: [address] [place] [address], Ph. Attender: Steven Veloz MD [facility] 10/03/2020 12:00:00 AM EST JEFF ([facility]) Steven Veloz MD: [address] [place] [address], Ph. Attender: Steven Veloz MD [facility] 10/03/2020 12:00:00 AM EST JEFF ([facility]) Steven Veloz MD: [address] [place] [address], Ph. Attender: Steven Veloz MD [facility] 10/03/2020 12:00:00 AM EST JEFF ([facility]) Steven Veloz MD: [address] [place] [address], Ph. Attender: Steven Veloz MD [facility] 10/03/2020 12:00:00 AM EST JEFF ([facility]) Steven Veloz MD: [address] [place] [address], Ph. Attender: Steven Veloz MD [facility] 10/03/2020 12:00:00 AM EST JEFF ([facility]) Steven Veloz MD: [address] [place] [address], Ph. Attender: Steven Veloz MD [facility] 10/03/2020 12:00:00 AM EST JEFF ([facility]) Steven Veloz MD: [address] [place] [phone], Ph. Attender: Steven Veloz MD [facility] 10/03/2020 12:00:00 AM EST JEFF ([facility]) Attender: Corey Basilio 09/28/2020 12:00:00 AM EST [facility] ([facility]) Extended Individual Psychotherapy - 45 min Attender: Corey Basilio [facility] 09/26/2020 12:00:00 PM EST - 09/26/2020 12:00:00 PM EST [facility] ([facility]) Outpatient Attender: PARAM VENTURA [facility] 09/12 01:00:00 PM EST MEDENT ([facility] Outpatient Attender: Adrienne García [facility] ENGINE[employer] [facility] 09/21/2020 09:30:00 AM EST - 09/21/2020 09:30:00 AM EST [facility] ([facility]) Attender: Adrienne Ricky [facility]INE[employer] 09/21/2020 12: 00:00 AM EST [facility] ([facility]) Extended Individual Psychotherapy - 45 min [facility]: [facility] 09/11/2020 02:00:00 AM EST - 09/11/2020 02:00:00 AM EST [facility] ([facility]) Attender: Corey Basilio 09/11/2020 12:00:00 AM EST [facility] ([facility]) Steven Veloz MD: [address] [place] [address], Ph. Attender: Steven Veloz MD [facility] 09/01/2020 12:00:00 AM EST JEFF ([facility]) Steven Veloz MD: [address] [place] [address], Ph. Attender: Steven Veloz MD [facility] 09/01/2020 12:00:00 AM EST JEFF ([facility]) Steven Veloz MD: [address] [place] [address], Ph. Attender: Steven Veloz MD [facility] 09/01/2020 12:00:00 AM EST JEFF ([facility]) Steven Veloz MD: [address] [place] [address], Ph. Attender: Steven Veloz MD [facility] 09/01/2020 12:00:00 AM EST JEFF ([facility]) Steven Veloz MD: [address] [place] [address], Ph. Attender: Steven Veloz MD [facility] 09/01/2020 12:00:00 AM EST JEFF ([facility]) Steven Veloz MD: [address] [place] [address], Ph. Attender: Steven Veloz MD [facility] 09/01/2020 12:00:00 AM EST JEFF ([facility]) Steven Veloz MD: [address] [place] [address], Ph. Attender: Steven Veloz MD [facility] 09/01/2020 12:00:00 AM EST JEFF ([facility]) Steven Veloz MD: [address] [place] [address], Ph. Attender: Steven Veloz MD [facility] 09/01/2020 12:00:00 AM EST JEFF ([facility]) Steven Veloz MD: [address] [place] [address], Ph. Attender: Steven Veloz MD [facility] 09/01/2020 12:00:00 AM EST JEFF ([facility]) Steven Veloz MD: [address] [place] [address], Ph. Attender: Steven Veolz MD [facility] 09/01/2020 12:00:00 AM EST JEFF ([facility]) Steven Veloz MD: [address] [place] [address], Ph. Attender: Steven Veloz MD [facility] 09/01/2020 12:00:00 AM EST JEFF ([facility]) Steven Veloz MD: [address] [place] [address], Ph. Attender: Steven Veloz MD [facility] 09/01/2020 12:00:00 AM EST JEFF ([facility]) Steven Veloz MD: [address] [place] [address], Ph. Attender: Steven Veloz MD [facility] 09/01/2020 12:00:00 AM EST JEFF ([facility]) Steven Veloz MD: [address] [place] [address], Ph. Attender: Steven Veloz MD [facility] 09/01/2020 12:00:00 AM EST JEFF ([facility]) Steven Veloz MD: [address] [place] [address], Ph. Attender: Steven Veloz MD [facility] 09/01/2020 12:00:00 AM EST JEFF ([facility]) Steven Veloz MD: [address] [place] [address], Ph. Attender: Steven Veloz MD [facility] 08/25/2020 12:00:00 AM EST JEFF ([facility]) Steven Veloz MD: [address] [place] [address], Ph. Attender: Steven Veloz MD [facility] 08/25/2020 12:00:00 AM EST JEFF ([facility]) Steven Veloz MD: [address] [place] [address], Ph. Attender: Steven Veloz MD [facility] 08/25/2020 12:00:00 AM EST JEFF ([facility]) Steven Veloz MD: [address] [place] [address], Ph. Attender: Steven Veloz MD [facility] 08/25/2020 12:00:00 AM EST JEFF ([facility]) Steven Veloz MD: [address] [place] [address], Ph. Attender: Steven Veloz MD [facility] 08/25/2020 12:00:00 AM EST JEFF ([facility]) Steven Veloz MD: [address] [place] [address]1 [address], Ph. Attender: Steven Veloz MD [facility] 08/25/2020 12:00:00 AM EST JEFF ([facility]) Steven Veloz MD: [address] [place] [address], Ph. Attender: Steven Veloz MD [facility] 08/25/2020 12:00:00 AM EST JEFF ([facility]) Steven Veloz MD: [address] [place] [address], Ph. Attender: Steven Veloz MD [facility] 08/25/2020 12:00:00 AM EST JEFF ([facility]) Steven Veloz MD: [address] [place] [address], Ph. Attender: Steven Veloz MD [facility] 08/25/2020 12:00:00 AM EST JEFF ([facility]) Steven Veloz MD: [address] [place] [address], Ph. Attender: Steven Veloz MD [facility] 08/25/2020 12:00:00 AM EST JEFF ([facility]) Steven Veloz MD: [address] [place] [address]0 [address], Ph. Attender: Steven Veloz MD [facility] 08/25/2020 12:00:00 AM EST JEFF ([facility]) Steven Veloz MD: [address] [place] [address], Ph. Attender: Steven Veloz MD [facility] 08/25/2020 12:00:00 AM EST JEFF ([facility]) Steven Veloz MD: [address] [place] [address], Ph. Attender: Steven Veloz MD [facility] 08/25/2020 12:00:00 AM EST JEFF ([facility]) Steven Veloz MD: [address] [place] [address] 504, Ph. Attender: Steven Veloz MD [facility] 08/25/2020 12:00:00 AM EST JEFF ([facility]) Steven Veloz MD: [address] [place] [address] 504, Ph. Attender: Steven Veloz MD [facility] 08/25/2020 12:00:00 AM EST JEFF ([facility]) Outpatient Attender: Adrienne García [facility] ENGINEER [facility] 08/24/2020 09:30:00 AM EST - 08/24/2020 09:30:00 AM EST [facility] ([facility]) Attender: Adrienne García [facility] ENGINEER 08/24/2020 12: 00:00 AM EST [facility] ([facility]) Outpatient Attender: LIAM SHAH NP Physical Therapy 02:15:00 PM EST MEDENT ([facility]) Brief Individual Psychotherapy - 30 min Attender: Cesilia rivera [facility] 08/17/2020 12:00:00 PM EST - 08/17/2020 12:00:00 PM EST [facility] ([facility]) Attender: Cesilia Narvaez 08/17/2020 12:00:00 AM EST [facility] ([facility]) Outpatient Attender: JLUIS HINTON 08/10/2020 02:40:00 PM EDT [facility] Steven Veloz MD: [address] [place], [place] [address], [place] [address]1 [address], Ph. Attender: Steven Veloz MD [facility] 08/10/2020 12:00:00 AM EDT JEFF ([facility]) Steven Veloz MD: [address] [place] [address]1 504, Ph. Attender: Steven Veloz MD [facility] 08/10/2020 12:00:00 AM EDT JEFF ([facility]) Steven Veloz MD: [address] [place] [address]5 [address], Ph. Attender: Steven Veloz MD [facility] 08/10/2020 12:00:00 AM EDT JEFF ([facility]) Steven Veloz MD: [address] [place] [address]3 504, Ph. Attender: Steven Veloz MD [facility] 08/10/2020 12:00:00 AM EDT JEFF ([facility]) Steven Veloz MD: [address] [place] [address], Ph. Attender: Steven Veloz MD [facility] 08/10/2020 12:00:00 AM EDT JEFF ([facility]) Steven Veloz MD: [address] [place] [address]5 504, Ph. Attender: Steven Veloz MD [facility] 08/10/2020 12:00:00 AM EDT JEFF ([facility]) Steven Vleoz MD: [address] [place] [address]3 [address], Ph. Attender: Steven Veloz MD [facility] 08/10/2020 12:00:00 AM EDT JEFF ([facility]) Steven Veloz MD: [address] [place] [address]5 504, Ph. Attender: Steven Veloz MD [facility] 08/10/2020 12:00:00 AM EDT JEFF ([facility]) Steven Veloz MD: [address] [place] [address] 504, Ph. Attender: Steven Veloz MD [facility] 08/10/2020 12:00:00 AM EDT JEFF ([facility]) Steven Veloz MD: [address] [place] [address]5 504, Ph. Attender: Steven Veloz MD [facility] 08/10/2020 12:00:00 AM EDT JEFF ([facility]) Steven Veloz MD: [address] [place] [address] 504, Ph. Attender: Steven Veloz MD [facility] 08/10/2020 12:00:00 AM EDT JEFF ([facility]) Steven Veloz MD: [address] [place] [address]1 504, Ph. Attender: Steven Veloz MD [facility] 08/10/2020 12:00:00 AM EDT JEFF ([facility]) Steven Veloz MD: [address] [place] [address]5 504, Ph. Attender: Steven Veloz MD [facility] 08/10/2020 12:00:00 AM EDT JEFF ([facility]) Steven Veloz MD: [address] [place] [address] 504, Ph. Attender: Steven Veloz MD [facility] 08/10/2020 12:00:00 AM EDT JEFF ([facility]) Steven Veloz MD: [address] [place] [address] 504, Ph. Attender: Steven Veloz MD [facility] 08/10/2020 12:00:00 AM EDT JEFF ([facility]) Steven Veloz MD: [address] [place] [address]0 504, Ph. Attender: Steven Veloz MD [facility] 08/10/2020 12:00:00 AM EDT JEFF ([facility]) Steven Veloz MD: [address] [place] [address]5 504, Ph. Attender: Steven Veloz MD [facility] 08/10/2020 12:00:00 AM EDT JEFF ([facility]) Outpatient Attender: Kinza BELLA 07/28/2020 02: 10:01 PM EDT [facility] Outpatient Attender: JLUIS BAZZI 07/28/2020 01:17:00 PM EDT [facility] Outpatient Attender: Adrienne García [facility] 07/25/2020 09:00:00 AM EDT - 07/25/2020 09:00:00 AM EDT [facility] ([facility]) Attender: Adrienne García [facility] 07/25/2020 12: 00:00 AM EDT [facility] ([facility]) Brief Individual Psychotherapy - 30 min Attender: Cesilia rivera [facility] 07/20/2020 04:00:00 AM EDT - 07/20/2020 04:00:00 AM EDT [facility] ([facility]) Attender: Cesilia Narvaez 07/20/2020 12:00:00 AM EDT [facility] ([facility]) Outpatient Attender: Kinza BELLA FP 07/19/2020 08: 05:59 AM EDT [facility] TEMPMHCTelemed 30" Psychotherapy Attender: Cesilia Wilson [facility] Krista Acevedo 07/06/2020 04:30:00 AM EDT - 07/06/2020 04:30:00 AM EDT [facility] ([facility]) Attender: Cesilia Bryanan 07/06/2020 12:00:00 AM EDT [facility] ([facility]) Outpatient Attender: Kinza Yanes [employer] FP 07/05/2020 10: 30:05 AM EDT [facility] Outpatient Attender: Kinza Yanes [employer]IL[employer] TENDER-[employer] FP 06/22/2020 02: 49:39 PM EDT [facility] Functional Status Immunizations Vaccine Date Status Description Data Source(s) COVID-19, mRNA, LNP-S, PF, 100 mcg/0.5 mL dose 01/10/2021 04 :55:18 PM EDT completed .5 mL [facility]) COVID-19, mRNA, LNP-S, PF, 100 mcg/0.5 mL dose 01/10/2021 04 :55:18 PM EDT completed .5 mL [facility]) COVID-19, mRNA, LNP-S, PF, 100 mcg/0.5 mL dose 01/10/2021 04 :55:18 PM EDT completed .5 mL [facility]) COVID-19, mRNA, LNP-S, PF, 100 mcg/0.5 mL dose 01/10/2021 04 :55:18 PM EDT [facility], mRNA, LNP-S, PF, 100 mcg/0.5 mL dose 01/10/2021 04 :55:18 PM EDT completed .5 mL [facility]) COVID-19, mRNA, LNP-S, PF, 100 mcg/0.5 mL dose 01/10/2021 04 :55:18 PM EDT completed .5 mL [facility]) COVID-19, mRNA, LNP-S, PF, 100 mcg/0.5 mL dose 01/10/2021 04 :55:18 PM EDT completed .5 mL JEFF ([facility]) COVID-19, mRNA, LNP-S, PF, 100 mcg/0.5 mL dose 01/10/2021 04 :55:18 PM EDT completed .5 mL [facility] ([facility]) COVID-19, mRNA, LNP-S, PF, 100 mcg/0.5 mL dose 01/10/2021 04 :55:18 PM EDT completed .5 mL [facility] ([facility]) COVID-19, mRNA, LNP-S, PF, 100 mcg/0.5 mL dose 01/10/2021 04 :55:18 PM EDT completed .5 mL [facility] ([facility]) COVID-19 VACCINE Moderna 01/10/2021 12:00:00 AM EDT completed [facility] Vaccine Series Complete: YESThis Data wa s Submitted to [facility] Via [employer]. COVID-19, mRNA, LNP-S, PF, 100 mcg/0.5 mL dose 12/14/2020 05 :16:13 PM EST completed .5 mL [facility] ([facility]) COVID-19, mRNA, LNP-S, PF, 100 mcg/0.5 mL dose 12/14/2020 05 :16:13 PM EST completed .5 mL [facility] ([facility]) COVID-19, mRNA, LNP-S, PF, 100 mcg/0.5 mL dose 12/14/2020 05 :16:13 PM EST completed .5 mL JEFF ([facility]) COVID-19, mRNA, LNP-S, PF, 100 mcg/0.5 mL dose 12/14/2020 05 :16:13 PM EST completed .5 mL [facility] ([facility]) COVID-19, mRNA, LNP-S, PF, 100 mcg/0.5 mL dose 12/14/2020 05 :16:13 PM EST completed .5 mL JEFF ([facility]) COVID-19, mRNA, LNP-S, PF, 100 mcg/0.5 mL dose 12/14/2020 05 :16:13 PM EST completed .5 mL JEFF ([facility]) COVID-19, mRNA, LNP-S, PF, 100 mcg/0.5 mL dose 12/14/2020 05 :16:13 PM EST completed .5 mL JEFF ([facility]) COVID-19, mRNA, LNP-S, PF, 100 mcg/0.5 mL dose 12/14/2020 05 :16:13 PM EST completed .5 mL JEFF ([facility]) COVID-19, mRNA, LNP-S, PF, 100 mcg/0.5 mL dose 12/14/2020 05 :16:13 PM EST completed .5 mL JEFF ([facility]) COVID-19, mRNA, LNP-S, PF, 100 mcg/0.5 mL dose 12/14/2020 05 :16:13 PM EST completed .5 mL JEFF ([facility]) COVID-19, mRNA, LNP-S, PF, 100 mcg/0.5 mL dose 12/14/2020 05 :16:13 PM EST completed .5 mL JEFF ([facility]) COVID-19 VACCINE Moderna 12/14/2020 12:00:00 AM EST completed [facility]IS Vaccine Series Complete: NOThis Data was Submitted to [facility] Via [employer]. New in 2011. IIV4 08/10/2020 03:51:00 PM EDT completed .5 mL JEFF ([facility]) New in 2011. IIV4 08/10/2020 03:51:00 PM EDT completed .5 mL JEFF ([facility]) New in 2011. IIV4 08/10/2020 03:51:00 PM EDT completed .5 mL JEFF ([facility]) New in 2011. IIV4 08/10/2020 03:51:00 PM EDT completed .5 mL JEFF ([facility]) New in 2011. IIV4 08/10/2020 03:51:00 PM EDT completed .5 mL JEFF ([facility]) New in 2011. IIV4 08/10/2020 03:51:00 PM EDT completed .5 mL JEFF ([facility]) New in 2011. IIV4 08/10/2020 03:51:00 PM EDT completed .5 mL JEFF ([facility]) New in 2011. IIV4 08/10/2020 03:51:00 PM EDT completed .5 mL JEFF ([facility]) New in 2011. IIV4 08/10/2020 03:51:00 PM EDT completed .5 mL JEFF ([facility]) New in 2011. IIV4 08/10/2020 03:51:00 PM EDT completed .5 mL JEFF ([facility]) New in 2011. IIV4 08/10/2020 03:51:00 PM EDT completed .5 mL JEFF ([facility]) New in 2011. IIV4 08/10/2020 03:51:00 PM EDT completed .5 mL JEFF ([facility]) New in 2011. IIV4 08/10/2020 03:51:00 PM EDT completed .5 mL JEFF ([facility]) New in 2011. IIV4 08/10/2020 03:51:00 PM EDT completed .5 mL JEFF ([facility]) New in 2011. IIV4 08/10/2020 03:51:00 PM EDT completed .5 mL JEFF ([facility]) Medications Medication Brand Name Start Date [...] propionate 0.05 MG/ACTUAT Metered Dose Shamir al [place] 50 mcg/actuation FLUTICASONE PROPIONATE 07/21/2021 12:00:00 AM [...] 12:00:00 AM EDT completed Alcohol Prep Pads [facility] ([facility]) ALCOHOL ANTISEPTIC PADS 06/20/2021 12:00:00 AM EDT [...] 30 mg by mouth completed <td ID="Medic ationRxNorm_4">[id number]</td><td ID="MedicationMedication_4">buspirone</td><td ID="MedicationRoute_4">by mouth</td><td ID="MedicationRouteConcept_4">C67421</td><td ID="MedicationStartDate_4">06/07/2021</td><td ID="MedicationStopDate_4">08/06/2021</td><td ID="MedicationDosageFrequency_4">twice a day</td><td ID="MedicationDuration_4">30</td><td ID="MedicationFormulaStrength_4">30 mg</td><td ID="MedicationDosageForm_4">tablet</td><td ID="MedicationDosageFormCode_4"></td><td ID="MedicationDosageDescription_4"></td><td ID="MedicationMedicationId_4">[id number]</td><td ID="MedicationAccount_4">[id number]</td><td ID="MedicationNpid_4">[id number]</td><td ID="MedicationAuthorFirstName_4">Susanne</td><td ID="MedicationAuthorLastName_4">Irvin</td><td ID="MedicationTaxonomyCode_4">[id number]</td><td ID="MedicationTaxonomyDesc_4">Nurse Practitioner</td><td ID="MedicationPhoneNumber_4">[phone]</td> [facility] ([facility]) buspirone hydrochloride 30 MG Oral Tablet buspirone 2020 12:00:00 AM EDT 30 mg by mouth completed <td ID="Medic ationRxNorm_6">169171</td><td ID="MedicationMedication_6">buspirone</td><td ID="MedicationRoute_6">by mouth</td><td ID="MedicationRouteConcept_6">M02984</td><td ID="MedicationStartDate_6">06/07/2021</td><td ID="MedicationStopDate_6">08/06/2021</td><td ID="MedicationDosageFrequency_6">twice a day</td><td ID="MedicationDuration_6">30</td><td ID="MedicationFormulaStrength_6">30 mg</td><td ID="MedicationDosageForm_6">tablet</td><td ID="MedicationDosageFormCode_6"></td><td ID="MedicationDosageDescription_6"></td><td ID="MedicationMedicationId_6">[id number]</td><td ID="MedicationAccount_6">[id number]</td><td ID="MedicationNpid_6">[id number]</td><td ID="MedicationAuthorFirstName_6">Susanne</td><td ID="MedicationAuthorLastName_6">Irvin</td><td ID="MedicationTaxonomyCode_6">[id number]</td><td ID="MedicationTaxonomyDesc_6">Nurse Practitioner</td><td ID="MedicationPhoneNumber_6">[phone]</td> [facility] ([facility]) 400 mg 06/05/2021 12:00:00 AM EDT capsule 90 TAKE ONE CAPSULE BY MOUTH THREE TIMES A DAY TAKE ONE CAPSULE BY MOUTH THREE TIMES A DAY SOLD: 06/05/2021 [facility] 800 mg 05/30/2021 12:00:00 AM EDT [...] AM EDT 0.5 mg completed <td ID="Medicat ionRxNorm_3">419324</td><td ID="MedicationMedication_3">clonazepam</td><td ID="MedicationRoute_3"></td><td ID="MedicationRouteConcept_3"></td><td ID="MedicationStartDate_3">05/30/2021</td><td ID="MedicationStopDate_3">06/29/2021</td><td ID="MedicationDosageFrequency_3"></td><td ID="MedicationDuration_3">30</td><td ID="MedicationFormulaStrength_3">0.5 mg</td><td ID="MedicationDosageForm_3">tablet</td><td ID="MedicationDosageFormCode_3"></td><td ID="MedicationDosageDescription_3"></td><td ID="MedicationMedicationId_3">[id number]</td><td ID="MedicationAccount_3">[id number]</td><td ID="MedicationNpid_3">[id number]</td><td ID="MedicationAuthorFirstName_3">Russell</td><td ID="MedicationAuthorLastName_3">[place]</td><td ID="MedicationTaxonomyCode_3">[id number]</td><td ID="MedicationTaxonomyDesc_3">Nurse Practitioner</td><td ID="MedicationPhoneNumber_3">[phone]</td> [facility] 05/30/2021 12:00:00 AM EDT tablet 90 TAKE ONE TABLET BY MOUTH THREE TIMES A DAY NEEDED MAXIMUM DAILY DOSE = THREE TABLETS TAKE ONE TABLET BY MOUTH THREE TIMES A DAY NEEDED MAXIMUM DAILY DOSE = THREE TABLETS SOLD: 06/25/2021 [facility] 24 HR Metformin hydrochloride 500 MG Extended [...] 30 mg by mouth completed <td ID="Medic ationRxNorm_5">854208</td><td ID="MedicationMedication_5">buspirone</td><td ID="MedicationRoute_5">by mouth</td><td ID="MedicationRouteConcept_5">N44624</td><td ID="MedicationStartDate_5">04/10/2021</td><td ID="MedicationStopDate_5">05/10/2021</td><td ID="MedicationDosageFrequency_5">twice a day</td><td ID="MedicationDuration_5">30</td><td ID="MedicationFormulaStrength_5">30 mg</td><td ID="MedicationDosageForm_5">tablet</td><td ID="MedicationDosageFormCode_5"></td><td ID="MedicationDosageDescription_5"></td><td ID="MedicationMedicationId_5">[id number]</td><td ID="MedicationAccount_5">[id number]</td><td ID="MedicationNpid_5">[id number]</td><td ID="MedicationAuthorFirstName_5">Adrienne</td><td ID="MedicationAuthorLastName_5">[place]</td><td ID="MedicationTaxonomyCode_5">[id number]</td><td ID="MedicationTaxonomyDesc_5">Psychiatric/Mental Health</td><td ID="MedicationPhoneNumber_5">[phone]</td> [facility] ([facility]) 30 mg 04/10/2021 12:00:00 AM EDT tablet [...] AM EDT 100 mg completed <td ID="Medica tionRxNorm_5">272585</td><td ID="MedicationMedication_5">trazodone</td><td ID="MedicationRoute_5"></td><td ID="MedicationRouteConcept_5"></td><td ID="MedicationStartDate_5">03/22/2021</td><td ID="MedicationStopDate_5"></td><td ID="MedicationDosageFrequency_5">at bedtime</td><td ID="MedicationDuration_5"></td><td ID="MedicationFormulaStrength_5">100 mg</td><td ID="MedicationDosageForm_5">tablet</td><td ID="MedicationDosageFormCode_5"></td><td ID="MedicationDosageDescription_5"></td><td ID="MedicationMedicationId_5">92705</td><td ID="MedicationAccount_5">[id number]</td><td ID="MedicationNpid_5">[id number]</td><td ID="MedicationAuthorFirstName_5">Adrienne</td><td ID="MedicationAuthorLastName_5">Ricky</td><td ID="MedicationTaxonomyCode_5">[id number]</td><td ID="MedicationTaxonomyDesc_5">Psychiatric/Mental Health</td><td ID="MedicationPhoneNumber_5">[phone]</td> [facility] ([facility]) Trazodone Hydrochloride 100 MG Oral Tablet trazodone 03/22 12:00:00 AM EDT 100 mg completed <td ID="Medica tionRxNorm_4">789949</td><td ID="MedicationMedication_4">trazodone</td><td ID="MedicationRoute_4"></td><td ID="MedicationRouteConcept_4"></td><td ID="MedicationStartDate_4">03/22/2021</td><td ID="MedicationStopDate_4"></td><td ID="MedicationDosageFrequency_4">at bedtime</td><td ID="MedicationDuration_4"></td><td ID="MedicationFormulaStrength_4">100 mg</td><td ID="MedicationDosageForm_4">tablet</td><td ID="MedicationDosageFormCode_4"></td><td ID="MedicationDosageDescription_4"></td><td ID="MedicationMedicationId_4">41134</td><td ID="MedicationAccount_4">[id number]</td><td ID="MedicationNpid_4">[id number]</td><td ID="MedicationAuthorFirstName_4">Adrienne</td><td ID="MedicationAuthorLastName_4">[place]</td><td ID="MedicationTaxonomyCode_4">[id number]</td><td ID="MedicationTaxonomyDesc_4">Psychiatric/Mental Health</td><td ID="MedicationPhoneNumber_4">[phone]</td> [facility] ([facility]) Trazodone Hydrochloride 100 MG Oral Tablet trazodone 03/22 12:00:00 AM EDT 100 mg completed <td ID="Medica tionRxNorm_2">359295</td><td ID="MedicationMedication_2">trazodone</td><td ID="MedicationRoute_2"></td><td ID="MedicationRouteConcept_2"></td><td ID="MedicationStartDate_2">03/22/2021</td><td ID="MedicationStopDate_2"></td><td ID="MedicationDosageFrequency_2">at bedtime</td><td ID="MedicationDuration_2"></td><td ID="MedicationFormulaStrength_2">100 mg</td><td ID="MedicationDosageForm_2">tablet</td><td ID="MedicationDosageFormCode_2"></td><td ID="MedicationDosageDescription_2"></td><td ID="MedicationMedicationId_2">13789</td><td ID="MedicationAccount_2">[id number]</td><td ID="MedicationNpid_2">[id number]</td><td ID="MedicationAuthorFirstName_2">Adrienne</td><td ID="MedicationAuthorLastName_2">Ricky</td><td ID="MedicationTaxonomyCode_2">[id number]</td><td ID="MedicationTaxonomyDesc_2">Psychiatric/Mental Health</td><td ID="MedicationPhoneNumber_2">[phone]</td> [facility] ([facility]) 800 mg 03/06/2021 12:00:00 AM EDT tablet [...] 150 mg by mouth completed <td ID="Medica tionRxNorm_4">555115</td><td ID="MedicationMedication_4">lamotrigine</td><td ID="MedicationRoute_4">by mouth</td><td ID="MedicationRouteConcept_4">X07008</td><td ID="MedicationStartDate_4">02/22/2021</td><td ID="MedicationStopDate_4"></td><td ID="MedicationDosageFrequency_4">once a day</td><td ID="MedicationDuration_4"></td><td ID="MedicationFormulaStrength_4">150 mg</td><td ID="MedicationDosageForm_4">tablet</td><td ID="MedicationDosageFormCode_4"></td><td ID="MedicationDosageDescription_4"></td><td ID="MedicationMedicationId_4">83218</td><td ID="MedicationAccount_4">[id number]</td><td ID="MedicationNpid_4">[id number]</td><td ID="MedicationAuthorFirstName_4">Adrienne</td><td ID="MedicationAuthorLastName_4">Ricky</td><td ID="MedicationTaxonomyCode_4">[id number]</td><td ID="MedicationTaxonomyDesc_4">Psychiatric/Mental Health</td><td ID="MedicationPhoneNumber_4">[phone]</td> [facility] ([facility]) ziprasidone 80 MG Oral Capsule ZIPRASIDONE HCL [...] 30 mg by mouth completed <td ID="Medic ationRxNorm_3">632358</td><td ID="MedicationMedication_3">buspirone</td><td ID="MedicationRoute_3">by mouth</td><td ID="MedicationRouteConcept_3">X90358</td><td ID="MedicationStartDate_3">02/22/2021</td><td ID="MedicationStopDate_3"></td><td ID="MedicationDosageFrequency_3">three times a day</td><td ID="MedicationDuration_3"></td><td ID="MedicationFormulaStrength_3">30 mg</td><td ID="MedicationDosageForm_3">tablet</td><td ID="MedicationDosageFormCode_3"></td><td ID="MedicationDosageDescription_3"></td><td ID="MedicationMedicationId_3">44992</td><td ID="MedicationAccount_3">[id number]</td><td ID="MedicationNpid_3">[id number]</td><td ID="MedicationAuthorFirstName_3">Adrienne</td><td ID="MedicationAuthorLastName_3">[place]</td><td ID="MedicationTaxonomyCode_3">[id number]</td><td ID="MedicationTaxonomyDesc_3">Psychiatric/Mental Health</td><td ID="MedicationPhoneNumber_3">[phone]</td> [facility] ([facility]) 150 mg 02/22/2021 12:00:00 AM EDT tablet 30 TAKE ONE TABLET BY MOUTH EVERY DAY TAKE ONE TABLET BY MOUTH EVERY DAY SOLD: 02/22/2021 [facility] lamotrigine 150 MG Oral Tablet lamotrigine 02/22/2021 12:00:00 AM EDT 150 mg by mouth completed <td ID="Medica tionRxNorm_3">671768</td><td ID="MedicationMedication_3">lamotrigine</td><td ID="MedicationRoute_3">by mouth</td><td ID="MedicationRouteConcept_3">J61865</td><td ID="MedicationStartDate_3">02/22/2021</td><td ID="MedicationStopDate_3"></td><td ID="MedicationDosageFrequency_3">once a day</td><td ID="MedicationDuration_3"></td><td ID="MedicationFormulaStrength_3">150 mg</td><td ID="MedicationDosageForm_3">tablet</td><td ID="MedicationDosageFormCode_3"></td><td ID="MedicationDosageDescription_3"></td><td ID="MedicationMedicationId_3">21701</td><td ID="MedicationAccount_3">[id number]</td><td ID="MedicationNpid_3">[id number]</td><td ID="MedicationAuthorFirstName_3">Adrienne</td><td ID="MedicationAuthorLastName_3">Ricky</td><td ID="MedicationTaxonomyCode_3">[id number]</td><td ID="MedicationTaxonomyDesc_3">Psychiatric/Mental Health</td><td ID="MedicationPhoneNumber_3">[phone]</td> [facility] ([facility]) 25 mcg 02/22/2021 12:00:00 AM EDT tablet [...] 150 mg by mouth completed <td ID="Medica tionRxNorm_5">336443</td><td ID="MedicationMedication_5">lamotrigine</td><td ID="MedicationRoute_5">by mouth</td><td ID="MedicationRouteConcept_5">L32420</td><td ID="MedicationStartDate_5">02/22/2021</td><td ID="MedicationStopDate_5">08/06/2021</td><td ID="MedicationDosageFrequency_5">once a day</td><td ID="MedicationDuration_5">30</td><td ID="MedicationFormulaStrength_5">150 mg</td><td ID="MedicationDosageForm_5">tablet</td><td ID="MedicationDosageFormCode_5"></td><td ID="MedicationDosageDescription_5"></td><td ID="MedicationMedicationId_5">06485</td><td ID="MedicationAccount_5">[id number]</td><td ID="MedicationNpid_5">[id number]</td><td ID="MedicationAuthorFirstName_5">Susanne</td><td ID="MedicationAuthorLastName_5">Irvin</td><td ID="MedicationTaxonomyCode_5">[id number]</td><td ID="MedicationTaxonomyDesc_5">Nurse Practitioner</td><td ID="MedicationPhoneNumber_5">[phone]</td> [facility] ([facility]) Clonazepam 0.5 MG Oral Tablet clonazepam 02/22/2021 12:00:00 AM EDT 0.5 mg by mouth completed <td ID="Medica tionRxNorm_2">851407</td><td ID="MedicationMedication_2">clonazepam</td><td ID="MedicationRoute_2">by mouth</td><td ID="MedicationRouteConcept_2">I40791</td><td ID="MedicationStartDate_2">02/22/2021</td><td ID="MedicationStopDate_2"></td><td ID="MedicationDosageFrequency_2"></td><td ID="MedicationDuration_2"></td><td ID="MedicationFormulaStrength_2">0.5 mg</td><td ID="MedicationDosageForm_2">tablet</td><td ID="MedicationDosageFormCode_2"></td><td ID="MedicationDosageDescription_2">as needed</td><td ID="MedicationMedicationId_2">38434</td><td ID="MedicationAccount_2">[id number]</td><td ID="MedicationNpid_2">[id number]</td><td ID="MedicationAuthorFirstName_2">Adrienne</td><td ID="MedicationAuthorLastName_2">[place]</td><td ID="MedicationTaxonomyCode_2">[id number]</td><td ID="MedicationTaxonomyDesc_2">Psychiatric/Mental Health</td><td ID="MedicationPhoneNumber_2">[phone]</td> [facility] ([facility]) 25 mcg 02/22/2021 12:00:00 AM EDT tablet [...] 0.5 mg by mouth completed <td ID="Medica tionRxNorm_6">563115</td><td ID="MedicationMedication_6">clonazepam</td><td ID="MedicationRoute_6">by mouth</td><td ID="MedicationRouteConcept_6">P39985</td><td ID="MedicationStartDate_6">12/11/2020</td><td ID="MedicationStopDate_6"></td><td ID="MedicationDosageFrequency_6"></td><td ID="MedicationDuration_6"></td><td ID="MedicationFormulaStrength_6">0.5 mg</td><td ID="MedicationDosageForm_6">tablet</td><td ID="MedicationDosageFormCode_6"></td><td ID="MedicationDosageDescription_6">as needed</td><td ID="MedicationMedicationId_6">30437</td><td ID="MedicationAccount_6">[id number]</td><td ID="MedicationNpid_6">[id number]</td><td ID="MedicationAuthorFirstName_6">Russell</td><td ID="MedicationAuthorLastName_6">[place]</td><td ID="MedicationTaxonomyCode_6">[id number]</td><td ID="MedicationTaxonomyDesc_6">Nurse Practitioner</td><td ID="MedicationPhoneNumber_6">[phone]</td> [facility] ([facility]) Propranolol Hydrochloride 40 MG Oral Tablet propranolol 12/11/2020 12:00:00 AM EST 40 mg by mouth completed <td ID="MedicationRxNorm_5">082343</td><td ID="MedicationMedication_5">propranolol</td><td ID="MedicationRoute_5">by mouth</td><td ID="MedicationRouteConcept_5">T51501</td><td ID="MedicationStartDate_5">12/11/2020</td><td ID="MedicationStopDate_5"></td><td ID="MedicationDosageFrequency_5">twice a day</td><td ID="MedicationDuration_5"></td><td ID="MedicationFormulaStrength_5">40 mg</td><td ID="MedicationDosageForm_5">tablet</td><td ID="MedicationDosageFormCode_5"></td><td ID="MedicationDosageDescription_5"></td><td ID="MedicationMedicationId_5">36198</td><td ID="MedicationAccount_5">[id number]</td><td ID="MedicationNpid_5">[id number]</td><td ID="MedicationAuthorFirstName_5">Adrienne</td><td ID="MedicationAuthorLastName_5">Ricky</td><td ID="MedicationTaxonomyCode_5">[id number]</td><td ID="MedicationTaxonomyDesc_5">Psychiatric/Mental Health</td><td ID="MedicationPhoneNumber_5">[phone]</td> [facility] ([facility]) Propranolol Hydrochloride 40 MG Oral Tablet propranolol 12/11/2020 12:00:00 AM EST 40 mg completed <td ID ="MedicationRxNorm_8">858372</td><td ID="MedicationMedication_8">propranolol</td><td ID="MedicationRoute_8"></td><td ID="MedicationRouteConcept_8"></td><td ID="MedicationStartDate_8">12/11/2020</td><td ID="MedicationStopDate_8">12/11/2020</td><td ID="MedicationDosageFrequency_8"></td><td ID="MedicationDuration_8"></td><td ID="MedicationFormulaStrength_8">40 mg</td><td ID="MedicationDosageForm_8">tablet</td><td ID="MedicationDosageFormCode_8"></td><td ID="MedicationDosageDescription_8"></td><td ID="MedicationMedicationId_8">56851</td><td ID="MedicationAccount_8">[id number]</td><td ID="MedicationNpid_8"></td><td ID="MedicationAuthorFirstName_8"></td><td ID="MedicationAuthorLastName_8"></td><td ID="MedicationTaxonomyCode_8"></td><td ID="MedicationTaxonomyDesc_8"></td><td ID="MedicationPhoneNumber_8"></td> [facility] ([facility]) Propranolol Hydrochloride 40 MG Oral Tablet propranolol 12/11/2020 12:00:00 AM EST 40 mg by mouth completed <td ID="MedicationRxNorm_3">259011</td><td ID="MedicationMedication_3">propranolol</td><td ID="MedicationRoute_3">by mouth</td><td ID="MedicationRouteConcept_3">H75494</td><td ID="MedicationStartDate_3">12/11/2020</td><td ID="MedicationStopDate_3"></td><td ID="MedicationDosageFrequency_3">twice a day</td><td ID="MedicationDuration_3"></td><td ID="MedicationFormulaStrength_3">40 mg</td><td ID="MedicationDosageForm_3">tablet</td><td ID="MedicationDosageFormCode_3"></td><td ID="MedicationDosageDescription_3"></td><td ID="MedicationMedicationId_3">67390</td><td ID="MedicationAccount_3">[id number]</td><td ID="MedicationNpid_3">[id number]</td><td ID="MedicationAuthorFirstName_3">Adrienne</td><td ID="MedicationAuthorLastName_3">Ricky</td><td ID="MedicationTaxonomyCode_3">[id number]</td><td ID="MedicationTaxonomyDesc_3">Psychiatric/Mental Health</td><td ID="MedicationPhoneNumber_3">[phone]</td> [facility] ([facility]) Propranolol Hydrochloride 40 MG Oral Tablet propranolol 12/11/2020 12:00:00 AM EST 40 mg by mouth completed <td ID="MedicationRxNorm_2">958889</td><td ID="MedicationMedication_2">propranolol</td><td ID="MedicationRoute_2">by mouth</td><td ID="MedicationRouteConcept_2">J25628</td><td ID="MedicationStartDate_2">12/11/2020</td><td ID="MedicationStopDate_2"></td><td ID="MedicationDosageFrequency_2">twice a day</td><td ID="MedicationDuration_2"></td><td ID="MedicationFormulaStrength_2">40 mg</td><td ID="MedicationDosageForm_2">tablet</td><td ID="MedicationDosageFormCode_2"></td><td ID="MedicationDosageDescription_2"></td><td ID="MedicationMedicationId_2">17437</td><td ID="MedicationAccount_2">[id number]</td><td ID="MedicationNpid_2">[id number]</td><td ID="MedicationAuthorFirstName_2">Adrienne</td><td ID="MedicationAuthorLastName_2">Ricky</td><td ID="MedicationTaxonomyCode_2">[id number]</td><td ID="MedicationTaxonomyDesc_2">Psychiatric/Mental Health</td><td ID="MedicationPhoneNumber_2">[phone]</td> [facility] ([facility]) ziprasidone 80 MG Oral Capsule ZIPRASIDONE HCL 12/11/2020 12:00: 00 AM EST capsule 60 TAKE ONE CAPSULE BY MOUTH TWICE A DAY TAKE ONE CAPSULE BY MOUTH TWICE A DAY SOLD: 01/16/2021 [facility] Propranolol Hydrochloride 40 MG Oral Tablet propranolol 12/11/2020 12:00:00 AM EST 40 mg by mouth completed <td ID="MedicationRxNorm_1">175953</td><td ID="MedicationMedication_1">propranolol</td><td ID="MedicationRoute_1">by mouth</td><td ID="MedicationRouteConcept_1">K85598</td><td ID="MedicationStartDate_1">12/11/2020</td><td ID="MedicationStopDate_1"></td><td ID="MedicationDosageFrequency_1">twice a day</td><td ID="MedicationDuration_1"></td><td ID="MedicationFormulaStrength_1">40 mg</td><td ID="MedicationDosageForm_1">tablet</td><td ID="MedicationDosageFormCode_1"></td><td ID="MedicationDosageDescription_1"></td><td ID="MedicationMedicationId_1">35442</td><td ID="MedicationAccount_1">[id number]</td><td ID="MedicationNpid_1">[id number]</td><td ID="MedicationAuthorFirstName_1">Adrienne</td><td ID="MedicationAuthorLastName_1">Ricky</td><td ID="MedicationTaxonomyCode_1">[id number]</td><td ID="MedicationTaxonomyDesc_1">Psychiatric/Mental Health</td><td ID="MedicationPhoneNumber_1">[phone]</td> [facility] ([facility]) 1 mg 12/11/2020 12:00:00 AM EST capsule [...] 0.5 mg by mouth completed <td ID="Medica tionRxNorm_5">743265</td><td ID="MedicationMedication_5">clonazepam</td><td ID="MedicationRoute_5">by mouth</td><td ID="MedicationRouteConcept_5">F32933</td><td ID="MedicationStartDate_5">12/11/2020</td><td ID="MedicationStopDate_5"></td><td ID="MedicationDosageFrequency_5"></td><td ID="MedicationDuration_5"></td><td ID="MedicationFormulaStrength_5">0.5 mg</td><td ID="MedicationDosageForm_5">tablet</td><td ID="MedicationDosageFormCode_5"></td><td ID="MedicationDosageDescription_5">as needed</td><td ID="MedicationMedicationId_5">50670</td><td ID="MedicationAccount_5">[id number]</td><td ID="MedicationNpid_5">[id number]</td><td ID="MedicationAuthorFirstName_5">[place]ell</td><td ID="MedicationAuthorLastName_5">[place]</td><td ID="MedicationTaxonomyCode_5">[id number]</td><td ID="MedicationTaxonomyDesc_5">Nurse Practitioner</td><td ID="MedicationPhoneNumber_5">[phone]</td> [facility] ([facility]) 40 mg 12/04/2020 12:00:00 AM EST capsule,delayed [...] MOUTH EVERY DAY SOLD: 03/02/2021 [facility] Caittojoseph Dumont 11/15/2020 12:00:00 AM EST [facility] ([facility]) 800 mg 11/11/2020 12:00:00 AM EST [...] EST 80 mg by mouth completed <td ID="Wa dicationRxNorm_1">275095</td><td ID="MedicationMedication_1">ziprasidone HCl</td><td ID="MedicationRoute_1">by mouth</td><td ID="MedicationRouteConcept_1">J66181</td><td ID="MedicationStartDate_1">10/25/2020</td><td ID="MedicationStopDate_1"></td><td ID="MedicationDosageFrequency_1">twice a day</td><td ID="MedicationDuration_1"></td><td ID="MedicationFormulaStrength_1">80 mg</td><td ID="MedicationDosageForm_1">capsule</td><td ID="MedicationDosageFormCode_1"></td><td ID="MedicationDosageDescription_1"></td><td ID="MedicationMedicationId_1">19370</td><td ID="MedicationAccount_1">[id number]</td><td ID="MedicationNpid_1">[id number]</td><td ID="MedicationAuthorFirstName_1">Adrienne</td><td ID="MedicationAuthorLastName_1">Ricky</td><td ID="MedicationTaxonomyCode_1">[id number]</td><td ID="MedicationTaxonomyDesc_1">Psychiatric/Mental Health</td><td ID="MedicationPhoneNumber_1">[phone]</td> [facility] ([facility]) ziprasidone 80 MG Oral Capsule ziprasidone HCl 10/25/2020 12:00:00 AM EST 80 mg by mouth completed <td ID="Me dicationRxNorm_3">666048</td><td ID="MedicationMedication_3">ziprasidone HCl</td><td ID="MedicationRoute_3">by mouth</td><td ID="MedicationRouteConcept_3">J23941</td><td ID="MedicationStartDate_3">10/25/2020</td><td ID="MedicationStopDate_3"></td><td ID="MedicationDosageFrequency_3">twice a day</td><td ID="MedicationDuration_3"></td><td ID="MedicationFormulaStrength_3">80 mg</td><td ID="MedicationDosageForm_3">capsule</td><td ID="MedicationDosageFormCode_3"></td><td ID="MedicationDosageDescription_3"></td><td ID="MedicationMedicationId_3">88939</td><td ID="MedicationAccount_3">[id number]</td><td ID="MedicationNpid_3">[id number]</td><td ID="MedicationAuthorFirstName_3">Russell</td><td ID="MedicationAuthorLastName_3">[place]</td><td ID="MedicationTaxonomyCode_3">[id number]</td><td ID="MedicationTaxonomyDesc_3">Nurse Practitioner</td><td ID="MedicationPhoneNumber_3">[phone]</td> [facility] ([facility]) ziprasidone 80 MG Oral Capsule ziprasidone HCl 10/25/2020 12:00:00 AM EST 80 mg by mouth completed <td ID="Me dicationRxNorm_7">882502</td><td ID="MedicationMedication_7">ziprasidone HCl</td><td ID="MedicationRoute_7">by mouth</td><td ID="MedicationRouteConcept_7">E76236</td><td ID="MedicationStartDate_7">10/25/2020</td><td ID="MedicationStopDate_7"></td><td ID="MedicationDosageFrequency_7">twice a day</td><td ID="MedicationDuration_7"></td><td ID="MedicationFormulaStrength_7">80 mg</td><td ID="MedicationDosageForm_7">capsule</td><td ID="MedicationDosageFormCode_7"></td><td ID="MedicationDosageDescription_7"></td><td ID="MedicationMedicationId_7">[id number]</td><td ID="MedicationAccount_7">[id number]</td><td ID="MedicationNpid_7">[id number]</td><td ID="MedicationAuthorFirstName_7">Russell</td><td ID="MedicationAuthorLastName_7">[place]</td><td ID="MedicationTaxonomyCode_7">[id number]</td><td ID="MedicationTaxonomyDesc_7">Nurse Practitioner</td><td ID="MedicationPhoneNumber_7">[phone]</td> [facility] ([facility]) ziprasidone 80 MG Oral Capsule ziprasidone HCl 10/25/2020 12:00:00 AM EST 80 mg by mouth completed <td ID="Me dicationRxNorm_4">[id number]</td><td ID="MedicationMedication_4">ziprasidone HCl</td><td ID="MedicationRoute_4">by mouth</td><td ID="MedicationRouteConcept_4">[id number]</td><td ID="MedicationStartDate_4">10/25/2020</td><td ID="MedicationStopDate_4">08/06/2021</td><td ID="MedicationDosageFrequency_4">twice a day</td><td ID="MedicationDuration_4">30</td><td ID="MedicationFormulaStrength_4">80 mg</td><td ID="MedicationDosageForm_4">capsule</td><td ID="MedicationDosageFormCode_4"></td><td ID="MedicationDosageDescription_4"></td><td ID="MedicationMedicationId_4">[id number]</td><td ID="MedicationAccount_4">[id number]</td><td ID="MedicationNpid_4">[id number]</td><td ID="MedicationAuthorFirstName_4">Susanne</td><td ID="MedicationAuthorLastName_4">Irvin</td><td ID="MedicationTaxonomyCode_4">[id number]</td><td ID="MedicationTaxonomyDesc_4">Nurse Practitioner</td><td ID="MedicationPhoneNumber_4">[phone]</td> [facility] ([facility]) ziprasidone 80 MG Oral Capsule ziprasidone HCl 10/25/2020 12:00:00 AM EST 80 mg by mouth completed <td ID="Me dicationRxNorm_2">539503</td><td ID="MedicationMedication_2">ziprasidone HCl</td><td ID="MedicationRoute_2">by mouth</td><td ID="MedicationRouteConcept_2">E32362</td><td ID="MedicationStartDate_2">10/25/2020</td><td ID="MedicationStopDate_2"></td><td ID="MedicationDosageFrequency_2">twice a day</td><td ID="MedicationDuration_2"></td><td ID="MedicationFormulaStrength_2">80 mg</td><td ID="MedicationDosageForm_2">capsule</td><td ID="MedicationDosageFormCode_2"></td><td ID="MedicationDosageDescription_2"></td><td ID="MedicationMedicationId_2">[id number]</td><td ID="MedicationAccount_2">[id number]</td><td ID="MedicationNpid_2">[id number]</td><td ID="MedicationAuthorFirstName_2">Adrienne</td><td ID="MedicationAuthorLastName_2">Ricky</td><td ID="MedicationTaxonomyCode_2">[id number]</td><td ID="MedicationTaxonomyDesc_2">Psychiatric/Mental Health</td><td ID="MedicationPhoneNumber_2">[phone]</td> [facility] ([facility]) 20 mg 10/25/2020 12:00:00 AM EST tablet [...] 80 mg by mouth completed <td ID="Me dicationRxNorm_6">616107</td><td ID="MedicationMedication_6">ziprasidone HCl</td><td ID="MedicationRoute_6">by mouth</td><td ID="MedicationRouteConcept_6">X78609</td><td ID="MedicationStartDate_6">10/25/2020</td><td ID="MedicationStopDate_6">08/06/2021</td><td ID="MedicationDosageFrequency_6">twice a day</td><td ID="MedicationDuration_6">30</td><td ID="MedicationFormulaStrength_6">80 mg</td><td ID="MedicationDosageForm_6">capsule</td><td ID="MedicationDosageFormCode_6"></td><td ID="MedicationDosageDescription_6"></td><td ID="MedicationMedicationId_6">[id number]</td><td ID="MedicationAccount_6">[id number]</td><td ID="MedicationNpid_6">[id number]</td><td ID="MedicationAuthorFirstName_6">Susanne</td><td ID="MedicationAuthorLastName_6">Irivn</td><td ID="MedicationTaxonomyCode_6">[id number]</td><td ID="MedicationTaxonomyDesc_6">Nurse Practitioner</td><td ID="MedicationPhoneNumber_6">[phone]</td> [facility] ([facility]) 20 mg 10/25/2020 12:00:00 AM EST tablet [...] 12:00:00 AM EST ORAL [facility] ([facility]) 0.5 mg 2020 12:00:00 AM [...] BY MOUTH TWICE A DAY SOLD: 08/31/2020 [facility] Prazosin 1 MG Oral Capsule prazosin 08/24/2020 12:00:00 AM EST 1 mg by mouth completed <td ID="Medicat ionRxNorm_3">583502</td><td ID="MedicationMedication_3">prazosin</td><td ID="MedicationRoute_3">by mouth</td><td ID="MedicationRouteConcept_3">R46911</td><td ID="MedicationStartDate_3">08/24/2020</td><td ID="MedicationStopDate_3"></td><td ID="MedicationDosageFrequency_3">at bedtime</td><td ID="MedicationDuration_3"></td><td ID="MedicationFormulaStrength_3">1 mg</td><td ID="MedicationDosageForm_3">capsule</td><td ID="MedicationDosageFormCode_3"></td><td ID="MedicationDosageDescription_3"></td><td ID="MedicationMedicationId_3">[id number]</td><td ID="MedicationAccount_3">[id number]</td><td ID="MedicationNpid_3">[id number]</td><td ID="MedicationAuthorFirstName_3">Adrienne</td><td ID="MedicationAuthorLastName_3">[place]</td><td ID="MedicationTaxonomyCode_3">[id number]</td><td ID="MedicationTaxonomyDesc_3">Psychiatric/Mental Health</td><td ID="MedicationPhoneNumber_3">[phone]</td> [facility] ([facility]) 1 mg 08/24/2020 12:00:00 AM EST capsule [...] 1 mg by mouth completed <td ID="Medicat ionRxNorm_2">948805</td><td ID="MedicationMedication_2">prazosin</td><td ID="MedicationRoute_2">by mouth</td><td ID="MedicationRouteConcept_2">G72092</td><td ID="MedicationStartDate_2">08/24/2020</td><td ID="MedicationStopDate_2"></td><td ID="MedicationDosageFrequency_2">at bedtime</td><td ID="MedicationDuration_2"></td><td ID="MedicationFormulaStrength_2">1 mg</td><td ID="MedicationDosageForm_2">capsule</td><td ID="MedicationDosageFormCode_2"></td><td ID="MedicationDosageDescription_2"></td><td ID="MedicationMedicationId_2">[id number]</td><td ID="MedicationAccount_2">[id number]</td><td ID="MedicationNpid_2">[id number]</td><td ID="MedicationAuthorFirstName_2">Adrienne</td><td ID="MedicationAuthorLastName_2">Ricky</td><td ID="MedicationTaxonomyCode_2">[id number]</td><td ID="MedicationTaxonomyDesc_2">Psychiatric/Mental Health</td><td ID="MedicationPhoneNumber_2">[phone]</td> [facility] ([facility]) Clonazepam 0.5 MG Oral Tablet clonazepam 08/24/2020 12:00:00 AM EST 0.5 mg by mouth completed <td ID="Medica tionRxNorm_2">969719</td><td ID="MedicationMedication_2">clonazepam</td><td ID="MedicationRoute_2">by mouth</td><td ID="MedicationRouteConcept_2">R10179</td><td ID="MedicationStartDate_2">08/24/2020</td><td ID="MedicationStopDate_2"></td><td ID="MedicationDosageFrequency_2">once a day</td><td ID="MedicationDuration_2"></td><td ID="MedicationFormulaStrength_2">0.5 mg</td><td ID="MedicationDosageForm_2">tablet</td><td ID="MedicationDosageFormCode_2"></td><td ID="MedicationDosageDescription_2"></td><td ID="MedicationMedicationId_2">36877</td><td ID="MedicationAccount_2">[id number]</td><td ID="MedicationNpid_2">[id number]</td><td ID="MedicationAuthorFirstName_2">Susanne</td><td ID="MedicationAuthorLastName_2">Irvin</td><td ID="MedicationTaxonomyCode_2">[id number]</td><td ID="MedicationTaxonomyDesc_2">Nurse Practitioner</td><td ID="MedicationPhoneNumber_2">[phone]</td> [facility] ([facility]) Clonazepam 0.5 MG Oral Tablet clonazepam 08/24/2020 12:00:00 AM EST 0.5 mg by mouth completed <td ID="Medica tionRxNorm_7">893392</td><td ID="MedicationMedication_7">clonazepam</td><td ID="MedicationRoute_7">by mouth</td><td ID="MedicationRouteConcept_7">G30088</td><td ID="MedicationStartDate_7">08/24/2020</td><td ID="MedicationStopDate_7">12/11/2020</td><td ID="MedicationDosageFrequency_7">once a day</td><td ID="MedicationDuration_7"></td><td ID="MedicationFormulaStrength_7">0.5 mg</td><td ID="MedicationDosageForm_7">tablet</td><td ID="MedicationDosageFormCode_7"></td><td ID="MedicationDosageDescription_7"></td><td ID="MedicationMedicationId_7">08534</td><td ID="MedicationAccount_7">[id number]</td><td ID="MedicationNpid_7">[id number]</td><td ID="MedicationAuthorFirstName_7">Susanne</td><td ID="MedicationAuthorLastName_7">Irvin</td><td ID="MedicationTaxonomyCode_7">[id number]</td><td ID="MedicationTaxonomyDesc_7">Nurse Practitioner</td><td ID="MedicationPhoneNumber_7">[phone]</td> [facility] ([facility]) Prazosin 1 MG Oral Capsule prazosin 08/24/2020 12:00:00 AM EST 1 mg by mouth completed <td ID="Medicat ionRxNorm_4">875277</td><td ID="MedicationMedication_4">prazosin</td><td ID="MedicationRoute_4">by mouth</td><td ID="MedicationRouteConcept_4">U19405</td><td ID="MedicationStartDate_4">08/24/2020</td><td ID="MedicationStopDate_4"></td><td ID="MedicationDosageFrequency_4">at bedtime</td><td ID="MedicationDuration_4"></td><td ID="MedicationFormulaStrength_4">1 mg</td><td ID="MedicationDosageForm_4">capsule</td><td ID="MedicationDosageFormCode_4"></td><td ID="MedicationDosageDescription_4"></td><td ID="MedicationMedicationId_4">57737</td><td ID="MedicationAccount_4">[id number]</td><td ID="MedicationNpid_4">[id number]</td><td ID="MedicationAuthorFirstName_4">Adrienne</td><td ID="MedicationAuthorLastName_4">[place]</td><td ID="MedicationTaxonomyCode_4">[id number]</td><td ID="MedicationTaxonomyDesc_4">Psychiatric/Mental Health</td><td ID="MedicationPhoneNumber_4">[phone]</td> [facility] ([facility]) 100 mg 08/24/2020 12:00:00 AM EST tablet 30 TAKE ONE TABLET BY MOUTH EVERY DAY TAKE ONE TABLET BY MOUTH EVERY DAY SOLD: 08/24/2020 [facility] Clonazepam 0.5 MG Oral Tablet clonazepam 08/24/2020 12:00:00 AM EST 0.5 mg by mouth completed <td ID="Medica tionRxNorm_3">848653</td><td ID="MedicationMedication_3">clonazepam</td><td ID="MedicationRoute_3">by mouth</td><td ID="MedicationRouteConcept_3">C62677</td><td ID="MedicationStartDate_3">08/24/2020</td><td ID="MedicationStopDate_3"></td><td ID="MedicationDosageFrequency_3">once a day</td><td ID="MedicationDuration_3"></td><td ID="MedicationFormulaStrength_3">0.5 mg</td><td ID="MedicationDosageForm_3">tablet</td><td ID="MedicationDosageFormCode_3"></td><td ID="MedicationDosageDescription_3"></td><td ID="MedicationMedicationId_3">68901</td><td ID="MedicationAccount_3">[id number]</td><td ID="MedicationNpid_3">[id number]</td><td ID="MedicationAuthorFirstName_3">Adrienne</td><td ID="MedicationAuthorLastName_3">[place]</td><td ID="MedicationTaxonomyCode_3">[id number]</td><td ID="MedicationTaxonomyDesc_3">Psychiatric/Mental Health</td><td ID="MedicationPhoneNumber_3">[phone]</td> [facility] ([facility]) Jc Greene 08/18/2020 12:00:00 AM EST ORAL com pleted [facility] ([facility] ) 5 mg 08/18/2020 [...] AM EST ORAL completed [facility] ([facility] ) 40 mg 08/17/2020 12:00:00 [...] 0.5 mg by mouth completed <td ID="Medica tionRxNorm_5">838274</td><td ID="MedicationMedication_5">clonazepam</td><td ID="MedicationRoute_5">by mouth</td><td ID="MedicationRouteConcept_5">K74780</td><td ID="MedicationStartDate_5">08/14/2020</td><td ID="MedicationStopDate_5">08/24/2020</td><td ID="MedicationDosageFrequency_5">once a day</td><td ID="MedicationDuration_5">10</td><td ID="MedicationFormulaStrength_5">0.5 mg</td><td ID="MedicationDosageForm_5">tablet</td><td ID="MedicationDosageFormCode_5"></td><td ID="MedicationDosageDescription_5">as directed</td><td ID="MedicationMedicationId_5">17247</td><td ID="MedicationAccount_5">[id number]</td><td ID="MedicationNpid_5">[id number]</td><td ID="MedicationAuthorFirstName_5">Adrienne</td><td ID="MedicationAuthorLastName_5">[place]</td><td ID="MedicationTaxonomyCode_5">[id number]</td><td ID="MedicationTaxonomyDesc_5">Psychiatric/Mental Health</td><td ID="MedicationPhoneNumber_5">[phone]</td> [facility] ([facility]) Clonazepam 0.5 MG Oral Tablet clonazepam 08/14/2020 12:00:00 AM EST 0.5 mg by mouth completed <td ID="Medica tionRxNorm_3">400217</td><td ID="MedicationMedication_3">clonazepam</td><td ID="MedicationRoute_3">by mouth</td><td ID="MedicationRouteConcept_3">Y31913</td><td ID="MedicationStartDate_3">08/14/2020</td><td ID="MedicationStopDate_3">08/24/2020</td><td ID="MedicationDosageFrequency_3">once a day</td><td ID="MedicationDuration_3">10</td><td ID="MedicationFormulaStrength_3">0.5 mg</td><td ID="MedicationDosageForm_3">tablet</td><td ID="MedicationDosageFormCode_3"></td><td ID="MedicationDosageDescription_3">as directed</td><td ID="MedicationMedicationId_3">75058</td><td ID="MedicationAccount_3">[id number]</td><td ID="MedicationNpid_3">[id number]</td><td ID="MedicationAuthorFirstName_3">Adrienne</td><td ID="MedicationAuthorLastName_3">Ricky</td><td ID="MedicationTaxonomyCode_3">[id number]</td><td ID="MedicationTaxonomyDesc_3">Psychiatric/Mental Health</td><td ID="MedicationPhoneNumber_3">[phone]</td> [facility] ([facility]) lamotrigine 100 MG Oral Tablet [Lamictal] Lamictal 07/25/2020 1 2:00:00 AM EDT 100 mg by mouth completed <td ID="Me dicationRxNorm_9">410275</td><td ID="MedicationMedication_9">Lamictal</td><td ID="MedicationRoute_9">by mouth</td><td ID="MedicationRouteConcept_9">D18222</td><td ID="MedicationStartDate_9">07/25/2020</td><td ID="MedicationStopDate_9">02/18/2021</td><td ID="MedicationDosageFrequency_9">once a day</td><td ID="MedicationDuration_9">30</td><td ID="MedicationFormulaStrength_9">100 mg</td><td ID="MedicationDosageForm_9">tablet</td><td ID="MedicationDosageFormCode_9"></td><td ID="MedicationDosageDescription_9"></td><td ID="MedicationMedicationId_9">63965</td><td ID="MedicationAccount_9">[id number]</td><td ID="MedicationNpid_9">[id number]</td><td ID="MedicationAuthorFirstName_9">Susanne</td><td ID="MedicationAuthorLastName_9">Irvin</td><td ID="MedicationTaxonomyCode_9">[id number]</td><td ID="MedicationTaxonomyDesc_9">Nurse Practitioner</td><td ID="MedicationPhoneNumber_9">[phone]</td> [facility] ([facility]) lamotrigine 100 MG Oral Tablet [Lamictal] Lamictal 07/25/2020 1 2:00:00 AM EDT 100 mg by mouth completed <td ID="Me dicationRxNorm_8">827200</td><td ID="MedicationMedication_8">Lamictal</td><td ID="MedicationRoute_8">by mouth</td><td ID="MedicationRouteConcept_8">R43677</td><td ID="MedicationStartDate_8">07/25/2020</td><td ID="MedicationStopDate_8">11/22/2020</td><td ID="MedicationDosageFrequency_8">once a day</td><td ID="MedicationDuration_8">30</td><td ID="MedicationFormulaStrength_8">100 mg</td><td ID="MedicationDosageForm_8">tablet</td><td ID="MedicationDosageFormCode_8"></td><td ID="MedicationDosageDescription_8"></td><td ID="MedicationMedicationId_8">49552</td><td ID="MedicationAccount_8">[id number]</td><td ID="MedicationNpid_8">[id number]</td><td ID="MedicationAuthorFirstName_8">Adrienne</td><td ID="MedicationAuthorLastName_8">[place]</td><td ID="MedicationTaxonomyCode_8">[id number]</td><td ID="MedicationTaxonomyDesc_8">Psychiatric/Mental Health</td><td ID="MedicationPhoneNumber_8">[phone]</td> [facility] ([facility]) lamotrigine 100 MG Oral Tablet [Lamictal] Lamictal 07/25/2020 1 2:00:00 AM EDT 100 mg by mouth completed <td ID="Me dicationRxNorm_5">469351</td><td ID="MedicationMedication_5">Lamictal</td><td ID="MedicationRoute_5">by mouth</td><td ID="MedicationRouteConcept_5">R56629</td><td ID="MedicationStartDate_5">07/25/2020</td><td ID="MedicationStopDate_5">11/22/2020</td><td ID="MedicationDosageFrequency_5">once a day</td><td ID="MedicationDuration_5">30</td><td ID="MedicationFormulaStrength_5">100 mg</td><td ID="MedicationDosageForm_5">tablet</td><td ID="MedicationDosageFormCode_5"></td><td ID="MedicationDosageDescription_5"></td><td ID="MedicationMedicationId_5">75881</td><td ID="MedicationAccount_5">[id number]</td><td ID="MedicationNpid_5">[id number]</td><td ID="MedicationAuthorFirstName_5">Adrienne</td><td ID="MedicationAuthorLastName_5">[place]</td><td ID="MedicationTaxonomyCode_5">[id number]</td><td ID="MedicationTaxonomyDesc_5">Psychiatric/Mental Health</td><td ID="MedicationPhoneNumber_5">[phone]</td> [facility] ([facility]) lamotrigine 100 MG Oral Tablet [Lamictal] Lamictal 07/25/2020 1 2:00:00 AM EDT 100 mg by mouth completed <td ID="Me dicationRxNorm_6">726494</td><td ID="MedicationMedication_6">Lamictal</td><td ID="MedicationRoute_6">by mouth</td><td ID="MedicationRouteConcept_6">U57847</td><td ID="MedicationStartDate_6">07/25/2020</td><td ID="MedicationStopDate_6">02/18/2021</td><td ID="MedicationDosageFrequency_6">once a day</td><td ID="MedicationDuration_6">30</td><td ID="MedicationFormulaStrength_6">100 mg</td><td ID="MedicationDosageForm_6">tablet</td><td ID="MedicationDosageFormCode_6"></td><td ID="MedicationDosageDescription_6"></td><td ID="MedicationMedicationId_6">16245</td><td ID="MedicationAccount_6">[id number]</td><td ID="MedicationNpid_6">[id number]</td><td ID="MedicationAuthorFirstName_6">Susanne</td><td ID="MedicationAuthorLastName_6">Irvin</td><td ID="MedicationTaxonomyCode_6">[id number]</td><td ID="MedicationTaxonomyDesc_6">Nurse Practitioner</td><td ID="MedicationPhoneNumber_6">[phone]</td> [facility] ([facility]) 100 mg 07/25/2020 12:00:00 AM EDT tablet 30 TAKE ONE TABLET BY MOUTH EVERY DAY TAKE ONE TABLET BY MOUTH EVERY DAY SOLD: 07/25/2020 [facility] lamotrigine 100 MG Oral Tablet [Lamictal] Lamictal 07/25/2020 1 2:00:00 AM EDT 100 mg by mouth completed <td ID="Me dicationRxNorm_4">951519</td><td ID="MedicationMedication_4">Lamictal</td><td ID="MedicationRoute_4">by mouth</td><td ID="MedicationRouteConcept_4">L17662</td><td ID="MedicationStartDate_4">07/25/2020</td><td ID="MedicationStopDate_4">02/18/2021</td><td ID="MedicationDosageFrequency_4">once a day</td><td ID="MedicationDuration_4">30</td><td ID="MedicationFormulaStrength_4">100 mg</td><td ID="MedicationDosageForm_4">tablet</td><td ID="MedicationDosageFormCode_4"></td><td ID="MedicationDosageDescription_4"></td><td ID="MedicationMedicationId_4">73586</td><td ID="MedicationAccount_4">[id number]</td><td ID="MedicationNpid_4">[id number]</td><td ID="MedicationAuthorFirstName_4">Susanne</td><td ID="MedicationAuthorLastName_4">Irvin</td><td ID="MedicationTaxonomyCode_4">[id number]</td><td ID="MedicationTaxonomyDesc_4">Nurse Practitioner</td><td ID="MedicationPhoneNumber_4">[phone]</td> [facility] ([facility]) lamotrigine 100 MG Oral Tablet [Lamictal] Lamictal 07/25/2020 1 2:00:00 AM EDT 100 mg by mouth completed <td ID="Me dicationRxNorm_7">187640</td><td ID="MedicationMedication_7">Lamictal</td><td ID="MedicationRoute_7">by mouth</td><td ID="MedicationRouteConcept_7">Q23069</td><td ID="MedicationStartDate_7">07/25/2020</td><td ID="MedicationStopDate_7">02/18/2021</td><td ID="MedicationDosageFrequency_7">once a day</td><td ID="MedicationDuration_7">30</td><td ID="MedicationFormulaStrength_7">100 mg</td><td ID="MedicationDosageForm_7">tablet</td><td ID="MedicationDosageFormCode_7"></td><td ID="MedicationDosageDescription_7"></td><td ID="MedicationMedicationId_7">94677</td><td ID="MedicationAccount_7">[id number]</td><td ID="MedicationNpid_7">[id number]</td><td ID="MedicationAuthorFirstName_7">Susanne</td><td ID="MedicationAuthorLastName_7">Irvin</td><td ID="MedicationTaxonomyCode_7">[id number]</td><td ID="MedicationTaxonomyDesc_7">Nurse Practitioner</td><td ID="MedicationPhoneNumber_7">[phone]</td> [facility] ([facility]) 40 mg 07/19/2020 12:00:00 AM EDT tablet [...] AM EDT 25 mg completed <td ID="Me dicationRxNorm_3">988667</td><td ID="MedicationMedication_3">Lamictal</td><td ID="MedicationRoute_3"></td><td ID="MedicationRouteConcept_3"></td><td ID="MedicationStartDate_3">06/27/2020</td><td ID="MedicationStopDate_3"></td><td ID="MedicationDosageFrequency_3"></td><td ID="MedicationDuration_3"></td><td ID="MedicationFormulaStrength_3">25 mg</td><td ID="MedicationDosageForm_3">tablet</td><td ID="MedicationDosageFormCode_3"></td><td ID="MedicationDosageDescription_3"></td><td ID="MedicationMedicationId_3">98791</td><td ID="MedicationAccount_3">[id number]</td><td ID="MedicationNpid_3">[id number]</td><td ID="MedicationAuthorFirstName_3">Adrienne</td><td ID="MedicationAuthorLastName_3">Ricky</td><td ID="MedicationTaxonomyCode_3">[id number]</td><td ID="MedicationTaxonomyDesc_3">Psychiatric/Mental Health</td><td ID="MedicationPhoneNumber_3">[phone]</td> [facility] ([facility]) lamotrigine 25 MG Oral Tablet [Lamictal] Lamictal 06/27/2020 12 :00:00 AM EDT 25 mg completed <td ID="Me dicationRxNorm_4">908847</td><td ID="MedicationMedication_4">Lamictal</td><td ID="MedicationRoute_4"></td><td ID="MedicationRouteConcept_4"></td><td ID="MedicationStartDate_4">06/27/2020</td><td ID="MedicationStopDate_4"></td><td ID="MedicationDosageFrequency_4"></td><td ID="MedicationDuration_4"></td><td ID="MedicationFormulaStrength_4">25 mg</td><td ID="MedicationDosageForm_4">tablet</td><td ID="MedicationDosageFormCode_4"></td><td ID="MedicationDosageDescription_4"></td><td ID="MedicationMedicationId_4">43045</td><td ID="MedicationAccount_4">[id number]</td><td ID="MedicationNpid_4">[id number]</td><td ID="MedicationAuthorFirstName_4">Adrienne</td><td ID="MedicationAuthorLastName_4">Ricky</td><td ID="MedicationTaxonomyCode_4">[id number]</td><td ID="MedicationTaxonomyDesc_4">Psychiatric/Mental Health</td><td ID="MedicationPhoneNumber_4">[phone]</td> [facility] ([facility]) 25 mg 06/27/2020 12:00:00 AM EDT tablet [...] 80 mg by mouth completed <td ID="Me dicationRxNorm_5">716855</td><td ID="MedicationMedication_5">ziprasidone HCl</td><td ID="MedicationRoute_5">by mouth</td><td ID="MedicationRouteConcept_5">C06042</td><td ID="MedicationStartDate_5">06/20/2020</td><td ID="MedicationStopDate_5">09/23/2020</td><td ID="MedicationDosageFrequency_5">twice a day</td><td ID="MedicationDuration_5">30</td><td ID="MedicationFormulaStrength_5">80 mg</td><td ID="MedicationDosageForm_5">capsule</td><td ID="MedicationDosageFormCode_5"></td><td ID="MedicationDosageDescription_5"></td><td ID="MedicationMedicationId_5">41301</td><td ID="MedicationAccount_5">[id number]</td><td ID="MedicationNpid_5">[id number]</td><td ID="MedicationAuthorFirstName_5">Adrienne</td><td ID="MedicationAuthorLastName_5">Ricky</td><td ID="MedicationTaxonomyCode_5">[id number]</td><td ID="MedicationTaxonomyDesc_5">Psychiatric/Mental Health</td><td ID="MedicationPhoneNumber_5">[phone]</td> [facility] ([facility]) 400 mg 06/20/2020 12:00:00 AM EDT capsule [...] 0.5 mg by mouth completed <td ID="Medica tionRxNorm_4">868442</td><td ID="MedicationMedication_4">clonazepam</td><td ID="MedicationRoute_4">by mouth</td><td ID="MedicationRouteConcept_4">N84133</td><td ID="MedicationStartDate_4">05/26/2020</td><td ID="MedicationStopDate_4">08/17/2020</td><td ID="MedicationDosageFrequency_4">once a day</td><td ID="MedicationDuration_4">30</td><td ID="MedicationFormulaStrength_4">0.5 mg</td><td ID="MedicationDosageForm_4">tablet</td><td ID="MedicationDosageFormCode_4"></td><td ID="MedicationDosageDescription_4">as directed</td><td ID="MedicationMedicationId_4">38451</td><td ID="MedicationAccount_4">[id number]</td><td ID="MedicationNpid_4">[id number]</td><td ID="MedicationAuthorFirstName_4">Susanne</td><td ID="MedicationAuthorLastName_4">Irvin</td><td ID="MedicationTaxonomyCode_4">[id number]</td><td ID="MedicationTaxonomyDesc_4">Nurse Practitioner</td><td ID="MedicationPhoneNumber_4">[phone]</td> [facility] ([facility]) 40 mg 05/24/2020 12:00:00 AM EDT tablet [...] AM EDT 15 mg completed <td ID="Medicat ionRxNorm_5">109613</td><td ID="MedicationMedication_5">mirtazapine</td><td ID="MedicationRoute_5"></td><td ID="MedicationRouteConcept_5"></td><td ID="MedicationStartDate_5">05/01/2020</td><td ID="MedicationStopDate_5">06/30/2020</td><td ID="MedicationDosageFrequency_5">at bedtime</td><td ID="MedicationDuration_5">30</td><td ID="MedicationFormulaStrength_5">15 mg</td><td ID="MedicationDosageForm_5">tablet</td><td ID="MedicationDosageFormCode_5"></td><td ID="MedicationDosageDescription_5"></td><td ID="MedicationMedicationId_5">[id number]</td><td ID="MedicationAccount_5">[id number]</td><td ID="MedicationNpid_5">[id number]</td><td ID="MedicationAuthorFirstName_5">Adrienne</td><td ID="MedicationAuthorLastName_5">Ricky</td><td ID="MedicationTaxonomyCode_5">[id number]</td><td ID="MedicationTaxonomyDesc_5">Psychiatric/Mental Health</td><td ID="MedicationPhoneNumber_5">[phone]</td> [facility] ([facility]) 25 mcg 04/21/2020 12:00:00 AM EDT tablet [...] 400 mg by mouth completed <td ID="Medica tionRxNorm_7">075107</td><td ID="MedicationMedication_7">gabapentin</td><td ID="MedicationRoute_7">by mouth</td><td ID="MedicationRouteConcept_7">[id number]</td><td ID="MedicationStartDate_7">03/13/2020</td><td ID="MedicationStopDate_7">07/04/2021</td><td ID="MedicationDosageFrequency_7">three times a day</td><td ID="MedicationDuration_7">30</td><td ID="MedicationFormulaStrength_7">400 mg</td><td ID="MedicationDosageForm_7">capsule</td><td ID="MedicationDosageFormCode_7"></td><td ID="MedicationDosageDescription_7"> </td><td ID="MedicationMedicationId_7">[id number]</td><td ID="MedicationAccount_7">[id number]</td><td ID="MedicationNpid_7">[id number]</td><td ID="MedicationAuthorFirstName_7">Susanne</td><td ID="MedicationAuthorLastName_7">Irvin</td><td ID="MedicationTaxonomyCode_7">[id number]</td><td ID="MedicationTaxonomyDesc_7">Nurse Practitioner</td><td ID="MedicationPhoneNumber_7">[phone]</td> [facility] ([facility]) gabapentin 400 MG Oral Capsule gabapentin 03/13/2020 12:00:00 AM EDT 400 mg by mouth completed <td ID="Medica tionRxNorm_3">282974</td><td ID="MedicationMedication_3">gabapentin</td><td ID="MedicationRoute_3">by mouth</td><td ID="MedicationRouteConcept_3">[id number]</td><td ID="MedicationStartDate_3">03/13/2020</td><td ID="MedicationStopDate_3">07/04/2021</td><td ID="MedicationDosageFrequency_3">three times a day</td><td ID="MedicationDuration_3">30</td><td ID="MedicationFormulaStrength_3">400 mg</td><td ID="MedicationDosageForm_3">capsule</td><td ID="MedicationDosageFormCode_3"></td><td ID="MedicationDosageDescription_3"> </td><td ID="MedicationMedicationId_3">[id number]</td><td ID="MedicationAccount_3">[id number]</td><td ID="MedicationNpid_3">[id number]</td><td ID="MedicationAuthorFirstName_3">Susanne</td><td ID="MedicationAuthorLastName_3">Irvin</td><td ID="MedicationTaxonomyCode_3">[id number]</td><td ID="MedicationTaxonomyDesc_3">Nurse Practitioner</td><td ID="MedicationPhoneNumber_3">[phone]</td> [facility] ([facility]) 8.6 mg 02/22/2020 12:00:00 AM EDT tablet [...] EDT 40 mg by mouth completed <td ID="MedicationRxNorm_6">228527</td><td ID="MedicationMedication_6">propranolol</td><td ID="MedicationRoute_6">by mouth</td><td ID="MedicationRouteConcept_6">[id number]</td><td ID="MedicationStartDate_6">02/03/2020</td><td ID="MedicationStopDate_6">10/23/2020</td><td ID="MedicationDosageFrequency_6">twice a day</td><td ID="MedicationDuration_6">30</td><td ID="MedicationFormulaStrength_6">40 mg</td><td ID="MedicationDosageForm_6">tablet</td><td ID="MedicationDosageFormCode_6"></td><td ID="MedicationDosageDescription_6"></td><td ID="MedicationMedicationId_6">[id number]</td><td ID="MedicationAccount_6">[id number]</td><td ID="MedicationNpid_6">[id number]</td><td ID="MedicationAuthorFirstName_6">Adrienne</td><td ID="MedicationAuthorLastName_6">Ricky</td><td ID="MedicationTaxonomyCode_6">[id number]</td><td ID="MedicationTaxonomyDesc_6">Psychiatric/Mental Health</td><td ID="MedicationPhoneNumber_6">[phone]</td> [facility] ([facility]) Propranolol Hydrochloride 40 MG Oral Tablet propranolol 02/03/2020 12:00:00 AM EDT 40 mg by mouth completed <td ID="MedicationRxNorm_7">[id number]</td><td ID="MedicationMedication_7">propranolol</td><td ID="MedicationRoute_7">by mouth</td><td ID="MedicationRouteConcept_7">[id number]</td><td ID="MedicationStartDate_7">02/03/2020</td><td ID="MedicationStopDate_7">10/23/2020</td><td ID="MedicationDosageFrequency_7">twice a day</td><td ID="MedicationDuration_7">30</td><td ID="MedicationFormulaStrength_7">40 mg</td><td ID="MedicationDosageForm_7">tablet</td><td ID="MedicationDosageFormCode_7"></td><td ID="MedicationDosageDescription_7"></td><td ID="MedicationMedicationId_7">[id number]</td><td ID="MedicationAccount_7">[id number]</td><td ID="MedicationNpid_7">[id number]</td><td ID="MedicationAuthorFirstName_7">Adrienne</td><td ID="MedicationAuthorLastName_7">Ricky</td><td ID="MedicationTaxonomyCode_7">[id number]</td><td ID="MedicationTaxonomyDesc_7">Psychiatric/Mental Health</td><td ID="MedicationPhoneNumber_7">[phone]</td> [facility] ([facility]) 31 gauge x 5/16" 01/26/2020 12:00:00 AM [...] THREE TIMES A DAY SOLD: 06/23/2020 [facility] Ketoconazole 20 MG/ML Medicated Shampoo ketoconazole 2 % shampoo ketoconazole 2 % shampoo completed ketoconazole 20 MG/ML Medicated Shampoo [facility] ([facility]) buspirone hydrochloride 10 MG Oral Tablet buspirone 10 mg tablet buspirone 10 mg tablet completed buspirone hydr ochloride 10 MG Oral Tablet [facility] ([facility]) Ketoconazole 20 MG/ML Medicated Shampoo ketoconazole 2 % shampoo ketoconazole 2 % shampoo completed ketoconazole 20 MG/ML Medicated Shampoo [facility] ([facility]) buspirone hydrochloride 10 MG Oral Tablet buspirone 10 mg tablet buspirone 10 mg tablet completed buspirone hydr ochloride 10 MG Oral Tablet [facility] ([facility]) Clonidine Hydrochloride 0.2 MG Oral Tablet clonidine H Cl 0.2 mg tablet clonidine HCl 0.2 mg tablet completed clonidine hydrochloride 0.2 MG Oral Tablet [place] ([facility]) Propranolol Hydrochloride 20 MG Oral Tablet propranolo l 20 mg tablet propranolol 20 mg tablet completed propranolol hydrochloride 20 MG Oral Tablet [facility] ([facility]) Isopropyl Alcohol 0.7 ML/ML Medicated Pad Alcohol Prep Pads Alco hol Prep Pads completed isopropyl alco hol 0.7 ML/ML Medicated Pad [facility] ([facility]) Docusate Sodium 100 MG Oral Capsule [DOK] DOK 100 mg capsule DOK 100 mg capsule completed docusate sodiu m 100 MG Oral Capsule [DOK] [facility] ([facility]) Triamcinolone Acetonide 1 MG/ML Topical Cream triamcinolone acetonide 0.1 % topical cream triamcinolone acetonide 0.1 % topical cream completed triamcinolone acetonide 1 MG/ML Topical Cream [facility] ([facility]) 0.5 ML dulaglutide 1.5 MG/ML Auto-Inject or [Trulicity] Trulicity 0.75 mg/0.5 mL subcutaneous pen injector Trulicity 0.75 mg/0.5 mL subcutaneous pen injector completed 0.5 ML dulaglu tide 1.5 MG/ML Auto-Injector [Trulicity] [facility] ([facility]) Famotidine 20 MG Oral Tablet famotidine 20 mg tablet famotidine 20 mg tablet completed famotidine 20 MG Oral Tablet [facility] ([facility]) Cephalexin 500 MG Oral Capsule cephalexin 500 mg capsu le cephalexin 500 mg capsule completed cephalexin 500 MG Oral Capsule [facility] ([facility]) lamotrigine 100 MG Oral Tablet lamotrigi ne 100 mg tablet TAKE ONE TABLET BY MOUTH ONCE DAILY lamotrigine 100 mg tablet TAKE ONE TABLET BY MOUTH ONC E DAILY completed lamotrigine 10 0 MG Oral Tablet [facility] ([facility]) Mirtazapine 15 MG Oral Tablet mirtazapine 15 mg tablet derrick zapine 15 mg tablet completed mirtazapine 15 MG Oral Tablet [facility] ([facility]) Azithromycin 250 MG Oral Tablet azithromycin 250 mg ta blet azithromycin 250 mg tablet completed azithromycin 25 0 MG Oral Tablet [facility] ([facility]) Famotidine 20 MG Oral Tablet famotidine 20 mg tablet famotidine 20 mg tablet completed famotidine 20 MG Oral Tablet [place] ([facility]) Docusate Sodium 100 MG Oral Capsule [DOK] DOK 100 mg capsule DOK 100 mg capsule completed docusate sodiu m 100 MG Oral Capsule [DOK] [facility] ([facility]) Mirtazapine 15 MG Oral Tablet mirtazapine 15 mg tablet derrick zapine 15 mg tablet completed mirtazapine 15 MG Oral Tablet [facility] ([facility]) OneTouch Verio Flex Meter [id number] compl eted OneTouch Verio Flex Meter [place] ([facility]) cefdinir 300 MG Oral Capsule cefdinir 300 mg capsule cefdinir 30 0 mg capsule completed cefdinir 300 M G Oral Capsule [facility] ([facility]) Mirtazapine 45 MG Oral Tablet mirtazapine 45 mg tablet derrick zapine 45 mg tablet completed mirtazapine 45 MG Oral Tablet [facility] ([facility]) Triamcinolone Acetonide 1 MG/ML Topical Cream triamcinolone acetonide 0.1 % topical cream triamcinolone acetonide 0.1 % topical cream completed triamcinolone acetonide 1 MG/ML Topical Cream [facility] ([facility]) Azithromycin 250 MG Oral Tablet azithromycin 250 mg ta blet azithromycin 250 mg tablet completed azithromycin 25 0 MG Oral Tablet [facility]) Amitriptyline Hydrochloride 50 MG Oral Tablet amitript yline 50 mg tablet amitriptyline 50 mg tablet completed amitriptyline hydrochloride 50 MG Oral Tablet [facility] ([facility]) buspirone hydrochloride 15 MG Oral Table t buspirone 15 mg tablet TAKE ONE TABLET BY MOUTH THREE TIMES A DAY buspirone 15 mg tablet TAKE ONE TABLET B Y MOUTH THREE TIMES A DAY completed buspirone hydrochloride 15 MG Oral Tablet [facility] ([facility]) Propranolol Hydrochloride 20 MG Oral Tablet propranolo l 20 mg tablet propranolol 20 mg tablet completed propranolol hydrochloride 20 MG Oral Tablet [facility] ([facility]) 0.5 ML dulaglutide 1.5 MG/ML Auto-Inject or [Trulicity] Trulicity 0.75 mg/0.5 mL subcutaneous pen injector Trulicity 0.75 mg/0.5 mL subcutaneous pen injector completed 0.5 ML dulaglu tide 1.5 MG/ML Auto-Injector [Trulicity] [facility]) Clonazepam 0.5 MG Oral Tablet clonazepam 0.5 mg tablet TAKE ONE TABLET BY MOUTH NEEDED FOR 3 DAYS THEN ONE HALF TABLET UNTIL FINISHED MAXIMUM DAILY DOSE ONE TABLET clonazepam 0.5 mg tablet TAKE ONE TABLET BY MOUTH NEEDED FOR 3 DAYS THEN ONE HALF TABLET UNTIL FINISHED MAXIMUM DAILY DOSE ONE TABLET completed clonazepam 0.5 MG Or al Tablet [place] ([facility]) sennosides, GROUP HOME 8.6 MG Oral Tablet [Senna-Time] senna 8.6 mg tablet senna 8.6 mg tablet completed sennosi azam, GROUP HOME 8.6 MG Oral Tablet [Senna-Time] [place] ([facility]) 0.5 ML dulaglutide 1.5 MG/ML Auto-Inject or [Trulicity] Trulicity 0.75 mg/0.5 mL subcutaneous pen injector Trulicity 0.75 mg/0.5 mL subcutaneous pen injector completed 0.5 ML dulaglu tide 1.5 MG/ML Auto-Injector [Trulicity] [place] ([facility]) ziprasidone 60 MG Oral Capsule ziprasidone 60 mg capsu le ziprasidone 60 mg capsule completed ziprasidone 60 MG Oral Capsule [facility]) Mirtazapine 45 MG Oral Tablet mirtazapine 45 mg tablet derrick zapine 45 mg tablet completed mirtazapine 45 MG Oral Tablet [facility] ([facility]) benzonatate 200 MG Oral Capsule benzonatate 200 mg cap [place] benzonatate 200 mg capsule completed benzonatate 20 0 MG Oral Capsule [facility] ([facility]) Triamcinolone Acetonide 1 MG/ML Topical Cream triamcinolone acetonide 0.1 % topical cream triamcinolone acetonide 0.1 % topical cream completed triamcinolone acetonide 1 MG/ML Topical Cream [facility] ([facility]) Ketoconazole 20 MG/ML Medicated Shampoo ketoconazole 2 % shampoo ketoconazole 2 % shampoo completed ketoconazole 20 MG/ML Medicated Shampoo [place] ([facility]) ziprasidone 60 MG Oral Capsule ziprasidone 60 mg capsu le ziprasidone 60 mg capsule completed ziprasidone 60 MG Oral Capsule [facility] ([facility]) sennosides, GROUP HOME 8.6 MG Oral Tablet [Senna-Time] senna 8.6 mg tablet senna 8.6 mg tablet completed sennosi azam, GROUP HOME 8.6 MG Oral Tablet [Senna-Time] [place] ([facility]) buspirone hydrochloride 7.5 MG Oral Tablet buspirone 7 .5 mg tablet buspirone 7.5 mg tablet completed buspirone h ydrochloride 7.5 MG Oral Tablet [facility] ([facility]) benztropine mesylate 0.5 MG Oral Tablet benztropine 0. 5 mg tablet benztropine 0.5 mg tablet completed benztrop ine mesylate 0.5 MG Oral Tablet [facility] ([facility]) Prazosin 1 MG Oral Capsule prazosin 1 mg capsule prazosin 1 mg capsule completed prazosin 1 MG Oral Capsul e [facility] ([facility]) BD Ultra-Fine Short Pen Needle 31 gauge x 5/16" USE DIRECTED ONCE DAILY [id number] completed BD Ultr a-Fine Short Pen Needle 31 gauge x 5/16" [place] ([facility]) Ketoconazole 20 MG/ML Medicated Shampoo ketoconazole 2 % shampoo ketoconazole 2 % shampoo completed ketoconazole 20 MG/ML Medicated Shampoo [facility] ([facility]) Mirtazapine 45 MG Oral Tablet mirtazapine 45 mg tablet derrick zapine 45 mg tablet completed mirtazapine 45 MG Oral Tablet [facility] ([facility]) Azithromycin 250 MG Oral Tablet azithromycin 250 mg ta blet azithromycin 250 mg tablet completed azithromycin 25 0 MG Oral Tablet [place] ([facility]) lamotrigine 25 MG Oral Tablet lamotrigine 25 mg tablet lamot rigine 25 mg tablet completed lamotrigine 25 MG Oral Tablet [facility] ([facility]) Isopropyl Alcohol 0.7 ML/ML Medicated Pad Alcohol Prep Pads Alco hol Prep Pads completed isopropyl alco hol 0.7 ML/ML Medicated Pad [facility] ([facility]) Ergocalciferol 43216 UNT Oral Capsule Vi tamin D2 1,250 mcg (50,000 unit) capsule Vitamin D2 1,250 mcg (50,000 unit) capsule completed ergocalciferol 1.25 MG Oral Capsule [facility] ([facility]) buspirone hydrochloride 7.5 MG Oral Tablet buspirone 7 .5 mg tablet buspirone 7.5 mg tablet completed buspirone h ydrochloride 7.5 MG Oral Tablet [facility] ([facility]) Propranolol Hydrochloride 20 MG Oral Tablet propranolo l 20 mg tablet propranolol 20 mg tablet completed propranolol hydrochloride 20 MG Oral Tablet [place] ([facility]) cefdinir 300 MG Oral Capsule cefdinir 300 mg capsule cefdinir 30 0 mg capsule completed cefdinir 300 M G Oral Capsule [facility] ([facility]) buspirone hydrochloride 7.5 MG Oral Tablet buspirone 7 .5 mg tablet buspirone 7.5 mg tablet completed buspirone h ydrochloride 7.5 MG Oral Tablet [facility] ([facility]) Mirtazapine 15 MG Oral Tablet mirtazapine 15 mg tablet derrick zapine 15 mg tablet completed mirtazapine 15 MG Oral Tablet [facility] ([facility]) Clonazepam 0.5 MG Disintegrating Oral Ta blet clonazepam 0.5 mg disintegrating tablet clonazepam 0.5 mg disintegrating tablet completed clonazepam 0.5 MG Disintegrating Oral Tablet [facility] ([facility]) Clonidine Hydrochloride 0.2 MG Oral Tablet clonidine H Cl 0.2 mg tablet clonidine HCl 0.2 mg tablet completed clonidine hydrochloride 0.2 MG Oral Tablet [facility] ([facility]) Azithromycin 250 MG Oral Tablet azithromycin 250 mg ta blet azithromycin 250 mg tablet completed azithromycin 25 0 MG Oral Tablet [place] ([facility]) Docusate Sodium 100 MG Oral Capsule [DOK] DOK 100 mg capsule DOK 100 mg capsule completed docusate sodiu m 100 MG Oral Capsule [DOK] [facility] ([facility]) benzonatate 200 MG Oral Capsule benzonatate 200 mg cap [place] benzonatate 200 mg capsule completed benzonatate 20 0 MG Oral Capsule [facility] ([facility]) 0.5 ML dulaglutide 1.5 MG/ML Auto-Inject or [Trulicity] Trulicity 0.75 mg/0.5 mL subcutaneous pen injector Trulicity 0.75 mg/0.5 mL subcutaneous pen injector completed 0.5 ML dulaglu tide 1.5 MG/ML Auto-Injector [Trulicity] [facility] ([facility]) ziprasidone 60 MG Oral Capsule ziprasidone 60 mg capsu le ziprasidone 60 mg capsule completed ziprasidone 60 MG Oral Capsule [facility] ([facility]) Amitriptyline Hydrochloride 50 MG Oral Tablet amitript yline 50 mg tablet amitriptyline 50 mg tablet completed amitriptyline hydrochloride 50 MG Oral Tablet [facility] ([facility]) benztropine mesylate 0.5 MG Oral Tablet benztropine 0. 5 mg tablet benztropine 0.5 mg tablet completed benztrop ine mesylate 0.5 MG Oral Tablet [facility] ([facility]) benzonatate 200 MG Oral Capsule benzonatate 200 mg cap [place] benzonatate 200 mg capsule completed benzonatate 20 0 MG Oral Capsule [facility] ([facility]) sennosides 8.6 mg-docusate sodium 50 mg capsule Take 2 capsules by oral route at bedtime. [id number] 2 capsule(s) completed docusate sodium 50 MG / sennosides, GROUP HOME 8.6 MG Oral Capsule [facility] ([facility]) buspirone hydrochloride 7.5 MG Oral Tablet buspirone 7 .5 mg tablet buspirone 7.5 mg tablet completed buspirone h ydrochloride 7.5 MG Oral Tablet [facility] ([facility]) Clonidine Hydrochloride 0.2 MG Oral Tablet clonidine H Cl 0.2 mg tablet clonidine HCl 0.2 mg tablet completed clonidine hydrochloride 0.2 MG Oral Tablet [facility] ([facility]) Azithromycin 250 MG Oral Tablet azithromycin 250 mg ta blet azithromycin 250 mg tablet completed azithromycin 25 0 MG Oral Tablet [facility] ([facility]) sennosides 8.6 mg-docusate sodium 50 mg capsule Take 2 capsules by oral route at bedtime. [id number] 2 capsule(s) completed docusate sodium 50 MG / sennosides, GROUP HOME 8.6 MG Oral Capsule [facility] ([facility]) buspirone hydrochloride 10 MG Oral Tablet buspirone 10 mg tablet buspirone 10 mg tablet completed buspirone hydr ochloride 10 MG Oral Tablet [facility] ([facility]) Propranolol Hydrochloride 20 MG Oral Tablet propranolo l 20 mg tablet propranolol 20 mg tablet completed propranolol hydrochloride 20 MG Oral Tablet [facility] ([facility]) Amitriptyline Hydrochloride 50 MG Oral Tablet amitript yline 50 mg tablet amitriptyline 50 mg tablet completed amitriptyline hydrochloride 50 MG Oral Tablet [facility] ([facility]) cefdinir 300 MG Oral Capsule cefdinir 300 mg capsule cefdinir 30 0 mg capsule completed cefdinir 300 M G Oral Capsule [facility] ([facility]) benzonatate 200 MG Oral Capsule benzonatate 200 mg cap [place] benzonatate 200 mg capsule completed benzonatate 20 0 MG Oral Capsule [facility] ([facility]) Mirtazapine 15 MG Oral Tablet mirtazapine 15 mg tablet derrick zapine 15 mg tablet completed mirtazapine 15 MG Oral Tablet [facility] ([facility]) Famotidine 20 MG Oral Tablet famotidine 20 mg tablet famotidine 20 mg tablet completed famotidine 20 MG Oral Tablet [facility] ([facility]) benzonatate 200 MG Oral Capsule benzonatate 200 mg cap [place] benzonatate 200 mg capsule completed benzonatate 20 0 MG Oral Capsule [facility] ([facility]) sennosides 8.6 mg-docusate sodium 50 mg capsule Take 2 capsules by oral route at bedtime. [id number] 2 capsule(s) completed docusate sodium 50 MG / sennosides, GROUP HOME 8.6 MG Oral Capsule [facility] ([facility]) Steglatro 5 mg tablet [id number] completed ertugliflozin 5 MG Oral Tablet [Steglatro] [place] ([facility]) Simvastatin 10 MG Oral Tablet simvastati n 10 mg tablet TAKE ONE TABLET BY MOUTH EVERY DAY simvastatin 10 mg tablet TAKE ONE TABLET BY MOUTH EVERY DAY completed simvastatin 10 MG Oral Table t [facility] ([facility]) benztropine mesylate 0.5 MG Oral Tablet benztropine 0. 5 mg tablet benztropine 0.5 mg tablet completed benztrop ine mesylate 0.5 MG Oral Tablet [facility] ([facility]) Docusate Sodium 100 MG Oral Capsule [DOK] DOK 100 mg capsule DOK 100 mg capsule completed docusate sodiu m 100 MG Oral Capsule [DOK] [facility] ([facility]) 0.5 ML dulaglutide 1.5 MG/ML Auto-Inject or [Trulicity] Trulicity 0.75 mg/0.5 mL subcutaneous pen injector Trulicity 0.75 mg/0.5 mL subcutaneous pen injector completed 0.5 ML dulaglu tide 1.5 MG/ML Auto-Injector [Trulicity] [facility] ([facility]) Docusate Sodium 50 MG / sennosides, GROUP HOME 8.6 MG Oral Tablet sennosides 8.6 mg- docusate sodium 50 mg tablet Take 2 tablets by oral route at bedtime. sennosides 8.6 mg-docusate sodium 50 mg tablet Take 2 tablets by oral route at bedtime. 2 completed docusate sodiu m 50 MG / sennosides, GROUP HOME 8.6 MG Oral Tablet [facility] ([facility]) Amitriptyline Hydrochloride 50 MG Oral Tablet amitript yline 50 mg tablet amitriptyline 50 mg tablet completed amitriptyline hydrochloride 50 MG Oral Tablet [facility] ([facility]) sennosides 8.6 mg-docusate sodium 50 mg capsule Take 2 capsules by oral route at bedtime. [id number] 2 capsule(s) completed docusate sodium 50 MG / sennosides, GROUP HOME 8.6 MG Oral Capsule [facility] ([facility]) Clindamycin 150 MG Oral Capsule clindamycin HCl 150 mg capsule clindamycin HCl 150 mg capsule completed clindam ycin 150 MG Oral Capsule [facility] ([facility]) 0.5 ML dulaglutide 1.5 MG/ML Auto-Inject or [Trulicity] Trulicity 0.75 mg/0.5 mL subcutaneous pen injector Trulicity 0.75 mg/0.5 mL subcutaneous pen injector completed 0.5 ML dulaglu tide 1.5 MG/ML Auto-Injector [Trulicity] [facility] ([facility]) buspirone hydrochloride 10 MG Oral Tablet buspirone 10 mg tablet buspirone 10 mg tablet completed buspirone hydr ochloride 10 MG Oral Tablet [facility] ([facility]) Famotidine 20 MG Oral Tablet famotidine 20 mg tablet famotidine 20 mg tablet completed famotidine 20 MG Oral Tablet [facility] ([facility]) Clindamycin 150 MG Oral Capsule clindamycin HCl 150 mg capsule clindamycin HCl 150 mg capsule completed clindam ycin 150 MG Oral Capsule [facility] ([facility]) Triamcinolone Acetonide 1 MG/ML Topical Cream triamcinolone acetonide 0.1 % topical cream triamcinolone acetonide 0.1 % topical cream completed triamcinolone acetonide 1 MG/ML Topical Cream [facility] ([facility]) Trazodone Hydrochloride 50 MG Oral Table t trazodone 50 mg tablet TAKE ONE TABLET BY MOUTH EVERY DAY AT BEDTIME trazodone 50 mg tablet TAKE ONE TABLET B Y MOUTH EVERY DAY AT BEDTIME completed trazodone hydrochloride 50 MG Oral Tablet [facility] ([facility]) Propranolol Hydrochloride 20 MG Oral Tablet propranolo l 20 mg tablet propranolol 20 mg tablet completed propranolol hydrochloride 20 MG Oral Tablet [facility] ([facility]) sennosides 8.6 mg-docusate sodium 50 mg capsule Take 2 capsules by oral route at bedtime. [id number] 2 capsule(s) completed docusate sodium 50 MG / sennosides, GROUP HOME 8.6 MG Oral Capsule [facility] ([facility]) Clonazepam 1 MG Oral Tablet clonazepam 1 mg tablet clonazepam 1 mg ta blet completed clonazepam 1 MG Oral Tablet [facility] ([facility]) Triamcinolone Acetonide 1 MG/ML Topical Cream triamcinolone acetonide 0.1 % topical cream triamcinolone acetonide 0.1 % topical cream completed triamcinolone acetonide 1 MG/ML Topical Cream [facility] ([facility]) buspirone hydrochloride 15 MG Oral Table t buspirone 15 mg tablet TAKE ONE TABLET BY MOUTH THREE TIMES A DAY buspirone 15 mg tablet TAKE ONE TABLET B Y MOUTH THREE TIMES A DAY completed buspirone hydrochloride 15 MG Oral Tablet [facility] ([facility]) buspirone hydrochloride 7.5 MG Oral Tablet buspirone 7 .5 mg tablet buspirone 7.5 mg tablet completed buspirone h ydrochloride 7.5 MG Oral Tablet [facility] ([facility]) Ergocalciferol [id number] UNT Oral Capsule Vi tamin D2 1,250 mcg (50,000 unit) capsule Vitamin D2 1,250 mcg (50,000 unit) capsule completed ergocalciferol 1.25 MG Oral Capsule [facility] ([facility]) lamotrigine 25 MG Oral Tablet lamotrigine 25 mg tablet lamot rigine 25 mg tablet completed lamotrigine 25 MG Oral Tablet [facility] ([facility]) sennosides 8.6 mg-docusate sodium 50 mg capsule Take 2 capsules by oral route at bedtime. [id number] 2 capsule(s) completed docusate sodium 50 MG / sennosides, GROUP HOME 8.6 MG Oral Capsule [facility] ([facility]) Ergocalciferol 22030 UNT Oral Capsule Vi tamin D2 1,250 mcg (50,000 unit) capsule Vitamin D2 1,250 mcg (50,000 unit) capsule completed ergocalciferol 1.25 MG Oral Capsule [facility] ([facility]) Amitriptyline Hydrochloride 50 MG Oral Tablet amitript yline 50 mg tablet amitriptyline 50 mg tablet completed amitriptyline hydrochloride 50 MG Oral Tablet [facility] ([facility]) Steglatro 5 mg tablet [id number] completed ertugliflozin 5 MG Oral Tablet [Steglatro] [facility] ([facility]) Amitriptyline Hydrochloride 50 MG Oral Tablet amitript yline 50 mg tablet amitriptyline 50 mg tablet completed amitriptyline hydrochloride 50 MG Oral Tablet [facility] ([facility]) Clindamycin 150 MG Oral Capsule clindamycin HCl 150 mg capsule clindamycin HCl 150 mg capsule completed clindam ycin 150 MG Oral Capsule [place] ([facility]) sennosides, GROUP HOME 8.6 MG Oral Tablet [Senna-Time] senna 8.6 mg tablet senna 8.6 mg tablet completed sennosi azam, GROUP HOME 8.6 MG Oral Tablet [Senna-Time] [facility] ([facility]) sennosides 8.6 mg-docusate sodium 50 mg capsule Take 2 capsules by oral route at bedtime. [id number] 2 capsule(s) completed docusate sodium 50 MG / sennosides, GROUP HOME 8.6 MG Oral Capsule [facility] ([facility]) sennosides 8.6 mg-docusate sodium 50 mg capsule Take 2 capsules by oral route at bedtime. [id number] 2 capsule(s) completed docusate sodium 50 MG / sennosides, GROUP HOME 8.6 MG Oral Capsule [facility] ([facility]) lamotrigine 100 MG Oral Tablet lamotrigi ne 100 mg tablet TAKE ONE TABLET BY MOUTH ONCE DAILY lamotrigine 100 mg tablet TAKE ONE TABLET BY MOUTH ONC E DAILY completed lamotrigine 10 0 MG Oral Tablet [place] ([facility]) Propranolol Hydrochloride 20 MG Oral Tablet propranolo l 20 mg tablet propranolol 20 mg tablet completed propranolol hydrochloride 20 MG Oral Tablet JEFF ([facility]) sennosides, GROUP HOME 8.6 MG Oral Tablet [Senna-Time] senna 8.6 mg tablet senna 8.6 mg tablet completed sennosi azam, GROUP HOME 8.6 MG Oral Tablet [Senna-Time] JEFF ([facility]) Isopropyl Alcohol 0.7 ML/ML Medicated Pad Alcohol Prep Pads Alco hol Prep Pads completed isopropyl alco hol 0.7 ML/ML Medicated Pad [place] ([facility]) ziprasidone 60 MG Oral Capsule ziprasidone 60 mg capsu le ziprasidone 60 mg capsule completed ziprasidone 60 MG Oral Capsule [place] ([facility]) Ketoconazole 20 MG/ML Medicated Shampoo ketoconazole 2 % shampoo ketoconazole 2 % shampoo completed ketoconazole 20 MG/ML Medicated Shampoo JEFF ([facility]) ziprasidone 60 MG Oral Capsule ziprasidone 60 mg capsu le ziprasidone 60 mg capsule completed ziprasidone 60 MG Oral Capsule [place] ([facility]) Mirtazapine 15 MG Oral Tablet mirtazapine 15 mg tablet derrick zapine 15 mg tablet completed mirtazapine 15 MG Oral Tablet JEFF ([facility]) benztropine mesylate 0.5 MG Oral Tablet benztropine 0. 5 mg tablet benztropine 0.5 mg tablet completed benztrop ine mesylate 0.5 MG Oral Tablet [place] ([facility]) OneTouch Delica Plus Lancet 33 gauge [id number] completed OneTouch Delica Plus Lancet 33 gauge JEFF ([facility]) Triamcinolone Acetonide 1 MG/ML Topical Cream triamcinolone acetonide 0.1 % topical cream triamcinolone acetonide 0.1 % topical cream completed triamcinolone acetonide 1 MG/ML Topical Cream [place] ([facility]) 0.5 ML dulaglutide 1.5 MG/ML Auto-Inject or [Trulicity] Trulicity 0.75 mg/0.5 mL subcutaneous pen injector Trulicity 0.75 mg/0.5 mL subcutaneous pen injector completed 0.5 ML dulaglu tide 1.5 MG/ML Auto-Injector [Trulicity] JEFF ([facility]) Triamcinolone Acetonide 1 MG/ML Topical Cream triamcinolone acetonide 0.1 % topical cream triamcinolone acetonide 0.1 % topical cream completed triamcinolone acetonide 1 MG/ML Topical Cream [place] ([facility]) buspirone hydrochloride 7.5 MG Oral Tablet buspirone 7 .5 mg tablet buspirone 7.5 mg tablet completed buspirone h ydrochloride 7.5 MG Oral Tablet JEFF ([facility]) lamotrigine 100 MG Oral Tablet lamotrigi ne 100 mg tablet TAKE ONE TABLET BY MOUTH ONCE DAILY lamotrigine 100 mg tablet TAKE ONE TABLET BY MOUTH ONC E DAILY completed lamotrigine 10 0 MG Oral Tablet [place] ([facility]) buspirone hydrochloride 7.5 MG Oral Tablet buspirone 7 .5 mg tablet buspirone 7.5 mg tablet completed buspirone h ydrochloride 7.5 MG Oral Tablet [place] ([facility]) Amitriptyline Hydrochloride 75 MG Oral Tablet amitript yline 75 mg tablet amitriptyline 75 mg tablet completed amitriptyline hydrochloride 75 MG Oral Tablet [place] ([facility]) Ketoconazole 20 MG/ML Medicated Shampoo ketoconazole 2 % shampoo ketoconazole 2 % shampoo completed ketoconazole 20 MG/ML Medicated Shampoo [place] ([facility]) benztropine mesylate 0.5 MG Oral Tablet benztropine 0. 5 mg tablet benztropine 0.5 mg tablet completed benztrop ine mesylate 0.5 MG Oral Tablet [place] ([facility]) Trazodone Hydrochloride 50 MG Oral Table t trazodone 50 mg tablet TAKE ONE TABLET BY MOUTH EVERY DAY AT BEDTIME trazodone 50 mg tablet TAKE ONE TABLET B Y MOUTH EVERY DAY AT BEDTIME completed trazodone hydrochloride 50 MG Oral Tablet [place] ([facility]) buspirone hydrochloride 10 MG Oral Tablet buspirone 10 mg tablet buspirone 10 mg tablet completed buspirone hydr ochloride 10 MG Oral Tablet [place] ([facility]) Ketoconazole 20 MG/ML Medicated Shampoo ketoconazole 2 % shampoo ketoconazole 2 % shampoo completed ketoconazole 20 MG/ML Medicated Shampoo [place] ([facility]) Cephalexin 500 MG Oral Capsule cephalexin 500 mg capsu le cephalexin 500 mg capsule completed cephalexin 500 MG Oral Capsule [place] ([facility]) buspirone hydrochloride 7.5 MG Oral Tablet buspirone 7 .5 mg tablet buspirone 7.5 mg tablet completed buspirone h ydrochloride 7.5 MG Oral Tablet [place] ([facility]) ziprasidone 60 MG Oral Capsule ziprasidone 60 mg capsu le ziprasidone 60 mg capsule completed ziprasidone 60 MG Oral Capsule JEFF ([facility]) Amitriptyline Hydrochloride 75 MG Oral Tablet amitript yline 75 mg tablet amitriptyline 75 mg tablet completed amitriptyline hydrochloride 75 MG Oral Tablet JEFF ([facility]) Clindamycin 150 MG Oral Capsule clindamycin HCl 150 mg capsule clindamycin HCl 150 mg capsule completed clindam ycin 150 MG Oral Capsule JEFF ([facility]) cefdinir 300 MG Oral Capsule cefdinir 300 mg capsule cefdinir 30 0 mg capsule completed cefdinir 300 M G Oral Capsule JEFF ([facility]) benzonatate 200 MG Oral Capsule benzonatate 200 mg cap [place] benzonatate 200 mg capsule completed benzonatate 20 0 MG Oral Capsule [place] ([facility]) cefdinir 300 MG Oral Capsule cefdinir 300 mg capsule cefdinir 30 0 mg capsule completed cefdinir 300 M G Oral Capsule [place] ([facility]) Isopropyl Alcohol 0.7 ML/ML Medicated Pad Alcohol Prep Pads Alco hol Prep Pads completed isopropyl alco hol 0.7 ML/ML Medicated Pad JEFF ([facility]) lamotrigine 100 MG Oral Tablet lamotrigi ne 100 mg tablet TAKE ONE TABLET BY MOUTH ONCE DAILY lamotrigine 100 mg tablet TAKE ONE TABLET BY MOUTH ONC E DAILY completed lamotrigine 10 0 MG Oral Tablet [place] ([facility]) Triamcinolone Acetonide 1 MG/ML Topical Cream triamcinolone acetonide 0.1 % topical cream triamcinolone acetonide 0.1 % topical cream completed triamcinolone acetonide 1 MG/ML Topical Cream [place] ([facility]) Propranolol Hydrochloride 20 MG Oral Tablet propranolo l 20 mg tablet propranolol 20 mg tablet completed propranolol hydrochloride 20 MG Oral Tablet JEFF ([facility]) Ergocalciferol 55060 UNT Oral Capsule Vi tamin D2 1,250 mcg (50,000 unit) capsule Vitamin D2 1,250 mcg (50,000 unit) capsule completed ergocalciferol 1.25 MG Oral Capsule JEFF ([facility]) sennosides 8.6 mg-docusate sodium 50 mg capsule Take 2 capsules by oral route at bedtime. [id number] 2 capsule(s) completed docusate sodium 50 MG / sennosides, GROUP HOME 8.6 MG Oral Capsule JEFF ([facility]) Ketoconazole 20 MG/ML Medicated Shampoo ketoconazole 2 % shampoo ketoconazole 2 % shampoo completed ketoconazole 20 MG/ML Medicated Shampoo JEFF ([facility]) Mirtazapine 15 MG Oral Tablet mirtazapine 15 mg tablet derrick zapine 15 mg tablet completed mirtazapine 15 MG Oral Tablet [facility] ([facility]) Propranolol Hydrochloride 20 MG Oral Tablet propranolo l 20 mg tablet propranolol 20 mg tablet completed propranolol hydrochloride 20 MG Oral Tablet JEFF ([facility]) Prazosin 1 MG Oral Capsule prazosin 1 mg capsule prazosin 1 mg capsule completed prazosin 1 MG Oral Capsul e [place] ([facility]) Amitriptyline Hydrochloride 50 MG Oral Tablet amitript yline 50 mg tablet amitriptyline 50 mg tablet completed amitriptyline hydrochloride 50 MG Oral Tablet JEFF ([facility]) Steglatro 5 mg tablet [id number] completed ertugliflozin 5 MG Oral Tablet [Steglatro] JEFF ([facility]) Steglatro 5 mg tablet [id number] completed ertugliflozin 5 MG Oral Tablet [Steglatro] JEFF ([facility]) Mirtazapine 15 MG Oral Tablet mirtazapine 15 mg tablet derrick zapine 15 mg tablet completed mirtazapine 15 MG Oral Tablet [facility] ([facility]) Clonazepam 1 MG Oral Tablet clonazepam 1 mg tablet clonazepam 1 mg ta blet completed clonazepam 1 MG Oral Tablet JE[facility] ([facility]) Amitriptyline Hydrochloride 75 MG Oral Tablet amitript yline 75 mg tablet amitriptyline 75 mg tablet completed amitriptyline hydrochloride 75 MG Oral Tablet JEFF ([facility]) Clonazepam 1 MG Oral Tablet clonazepam 1 mg tablet clonazepam 1 mg ta blet completed clonazepam 1 MG Oral Tablet JE[facility] ([facility]) benztropine mesylate 0.5 MG Oral Tablet benztropine 0. 5 mg tablet benztropine 0.5 mg tablet completed benztrop ine mesylate 0.5 MG Oral Tablet JEFF ([facility]) Mirtazapine 45 MG Oral Tablet mirtazapine 45 mg tablet derrick zapine 45 mg tablet completed mirtazapine 45 MG Oral Tablet [place] ([facility]) OneTouch Delica Plus Lancet 33 gauge [id number] completed OneTouch Delica Plus Lancet 33 gauge JEFF ([facility]) Amitriptyline Hydrochloride 75 MG Oral Tablet amitript yline 75 mg tablet amitriptyline 75 mg tablet completed amitriptyline hydrochloride 75 MG Oral Tablet JEFF ([facility]) Amitriptyline Hydrochloride 50 MG Oral Tablet amitript yline 50 mg tablet amitriptyline 50 mg tablet completed amitriptyline hydrochloride 50 MG Oral Tablet [place] ([facility]) 0.5 ML dulaglutide 1.5 MG/ML Auto-Inject or [Trulicity] Trulicity 0.75 mg/0.5 mL subcutaneous pen injector Trulicity 0.75 mg/0.5 mL subcutaneous pen injector completed 0.5 ML dulaglu tide 1.5 MG/ML Auto-Injector [Trulicity] [place] ([facility]) Ketoconazole 20 MG/ML Medicated Shampoo ketoconazole 2 % shampoo ketoconazole 2 % shampoo completed ketoconazole 20 MG/ML Medicated Shampoo [place] ([facility]) 0.5 ML dulaglutide 1.5 MG/ML Auto-Inject or [Trulicity] Trulicity 0.75 mg/0.5 mL subcutaneous pen injector Trulicity 0.75 mg/0.5 mL subcutaneous pen injector completed 0.5 ML dulaglu tide 1.5 MG/ML Auto-Injector [Trulicity] [place] ([facility]) Simvastatin 10 MG Oral Tablet simvastati n 10 mg tablet TAKE ONE TABLET BY MOUTH EVERY DAY simvastatin 10 mg tablet TAKE ONE TABLET BY MOUTH EVERY DAY completed simvastatin 10 MG Oral Table t [place] ([facility]) sennosides, GROUP HOME 8.6 MG Oral Tablet [Senna-Time] senna 8.6 mg tablet senna 8.6 mg tablet completed sennosi azam, GROUP HOME 8.6 MG Oral Tablet [Senna-Time] JEFF ([facility]) ziprasidone 60 MG Oral Capsule ziprasidone 60 mg capsu le ziprasidone 60 mg capsule completed ziprasidone 60 MG Oral Capsule JEFF ([facility]) Docusate Sodium 50 MG / sennosides, GROUP HOME 8.6 MG Oral Tablet sennosides 8.6 mg- docusate sodium 50 mg tablet Take 2 tablets by oral route at bedtime. sennosides 8.6 mg-docusate sodium 50 mg tablet Take 2 tablets by oral route at bedtime. 2 completed docusate sodiu m 50 MG / sennosides, GROUP HOME 8.6 MG Oral Tablet JEFF ([facility]) benztropine mesylate 0.5 MG Oral Tablet benztropine 0. 5 mg tablet benztropine 0.5 mg tablet completed benztrop ine mesylate 0.5 MG Oral Tablet [facility] ([facility]) Clonidine Hydrochloride 0.2 MG Oral Tablet clonidine H Cl 0.2 mg tablet clonidine HCl 0.2 mg tablet completed clonidine hydrochloride 0.2 MG Oral Tablet JEFF ([facility]) Amitriptyline Hydrochloride 50 MG Oral Tablet amitript yline 50 mg tablet amitriptyline 50 mg tablet completed amitriptyline hydrochloride 50 MG Oral Tablet JEFF ([facility]) Ergocalciferol 24337 UNT Oral Capsule Vi tamin D2 1,250 mcg (50,000 unit) capsule Vitamin D2 1,250 mcg (50,000 unit) capsule completed ergocalciferol 1.25 MG Oral Capsule JEFF ([facility]) Azithromycin 250 MG Oral Tablet azithromycin 250 mg ta blet azithromycin 250 mg tablet completed azithromycin 25 0 MG Oral Tablet [facility] ([facility]) Clonidine Hydrochloride 0.2 MG Oral Tablet clonidine H Cl 0.2 mg tablet clonidine HCl 0.2 mg tablet completed clonidine hydrochloride 0.2 MG Oral Tablet JEFF ([facility]) OneTouch Verio test strips USE UP TO TWO TIMES A DAY DIRECTED [id number] completed OneTouch Verio test strip s JEFF ([facility]) buspirone hydrochloride 10 MG Oral Tablet buspirone 10 mg tablet buspirone 10 mg tablet completed buspirone hydr ochloride 10 MG Oral Tablet JE[facility] ([facility]) Azithromycin 250 MG Oral Tablet azithromycin 250 mg ta blet azithromycin 250 mg tablet completed azithromycin 25 0 MG Oral Tablet JE[facility] ([facility]) Triamcinolone Acetonide 1 MG/ML Topical Cream triamcinolone acetonide 0.1 % topical cream triamcinolone acetonide 0.1 % topical cream completed triamcinolone acetonide 1 MG/ML Topical Cream [place] ([facility]) lamotrigine 25 MG Oral Tablet lamotrigine 25 mg tablet lamot rigine 25 mg tablet completed lamotrigine 25 MG Oral Tablet JEFF ([facility]) Mirtazapine 45 MG Oral Tablet mirtazapine 45 mg tablet derrick zapine 45 mg tablet completed mirtazapine 45 MG Oral Tablet [place] ([facility]) buspirone hydrochloride 10 MG Oral Tablet buspirone 10 mg tablet buspirone 10 mg tablet completed buspirone hydr ochloride 10 MG Oral Tablet [place] ([facility]) Mirtazapine 45 MG Oral Tablet mirtazapine 45 mg tablet derrick zapine 45 mg tablet completed mirtazapine 45 MG Oral Tablet [place] ([facility]) sennosides 8.6 mg-docusate sodium 50 mg capsule Take 2 capsules by oral route at bedtime. [id number] 2 capsule(s) completed docusate sodium 50 MG / sennosides, GROUP HOME 8.6 MG Oral Capsule [place] ([facility]) Ketoconazole 20 MG/ML Medicated Shampoo ketoconazole 2 % shampoo ketoconazole 2 % shampoo completed ketoconazole 20 MG/ML Medicated Shampoo [place] ([facility]) Azithromycin 250 MG Oral Tablet azithromycin 250 mg ta blet azithromycin 250 mg tablet completed azithromycin 25 0 MG Oral Tablet JE[facility] ([facility]) Famotidine 20 MG Oral Tablet famotidine 20 mg tablet famotidine 20 mg tablet completed famotidine 20 MG Oral Tablet JEFF ([facility]) ziprasidone 60 MG Oral Capsule ziprasidone 60 mg capsu le ziprasidone 60 mg capsule completed ziprasidone 60 MG Oral Capsule [place] ([facility]) Amitriptyline Hydrochloride 75 MG Oral Tablet amitript yline 75 mg tablet amitriptyline 75 mg tablet completed amitriptyline hydrochloride 75 MG Oral Tablet JEFF ([facility]) Mirtazapine 45 MG Oral Tablet mirtazapine 45 mg tablet derrick zapine 45 mg tablet completed mirtazapine 45 MG Oral Tablet [facility] ([facility]) Propranolol Hydrochloride 20 MG Oral Tablet propranolo l 20 mg tablet propranolol 20 mg tablet completed propranolol hydrochloride 20 MG Oral Tablet JEFF ([facility]) buspirone hydrochloride 15 MG Oral Table t buspirone 15 mg tablet TAKE ONE TABLET BY MOUTH THREE TIMES A DAY buspirone 15 mg tablet TAKE ONE TABLET B Y MOUTH THREE TIMES A DAY completed buspirone hydrochloride 15 MG Oral Tablet JEFF ([facility]) Propranolol Hydrochloride 20 MG Oral Tablet propranolo l 20 mg tablet propranolol 20 mg tablet completed propranolol hydrochloride 20 MG Oral Tablet JEFF ([facility]) Famotidine 20 MG Oral Tablet famotidine 20 mg tablet famotidine 20 mg tablet completed famotidine 20 MG Oral Tablet [facility] ([facility]) benztropine mesylate 0.5 MG Oral Tablet benztropine 0. 5 mg tablet benztropine 0.5 mg tablet completed benztrop ine mesylate 0.5 MG Oral Tablet JE[facility] ([facility]) ziprasidone 60 MG Oral Capsule ziprasidone 60 mg capsu le ziprasidone 60 mg capsule completed ziprasidone 60 MG Oral Capsule JEFF ([facility]) Triamcinolone Acetonide 1 MG/ML Topical Cream triamcinolone acetonide 0.1 % topical cream triamcinolone acetonide 0.1 % topical cream completed triamcinolone acetonide 1 MG/ML Topical Cream JEFF ([facility]) Famotidine 20 MG Oral Tablet famotidine 20 mg tablet famotidine 20 mg tablet completed famotidine 20 MG Oral Tablet JE[facility] ([facility]) cefdinir 300 MG Oral Capsule cefdinir 300 mg capsule cefdinir 30 0 mg capsule completed cefdinir 300 M G Oral Capsule JEFF ([facility]) OneTouch Delica Plus Lancet 33 gauge [id number] completed OneTouch Delica Plus Lancet 33 gauge JEFF ([facility]) buspirone hydrochloride 10 MG Oral Tablet buspirone 10 mg tablet buspirone 10 mg tablet completed buspirone hydr ochloride 10 MG Oral Tablet JE[facility] ([facility]) Amitriptyline Hydrochloride 50 MG Oral Tablet amitript yline 50 mg tablet amitriptyline 50 mg tablet completed amitriptyline hydrochloride 50 MG Oral Tablet [place] ([facility]) lamotrigine 25 MG Oral Tablet lamotrigine 25 mg tablet lamot rigine 25 mg tablet completed lamotrigine 25 MG Oral Tablet [place] ([facility]) Clonazepam 0.5 MG Disintegrating Oral Ta blet clonazepam 0.5 mg disintegrating tablet clonazepam 0.5 mg disintegrating tablet completed clonazepam 0.5 MG Disintegrating Oral Tablet [place] ([facility]) lamotrigine 100 MG Oral Tablet lamotrigi ne 100 mg tablet TAKE ONE TABLET BY MOUTH ONCE DAILY lamotrigine 100 mg tablet TAKE ONE TABLET BY MOUTH ONC E DAILY completed lamotrigine 10 0 MG Oral Tablet [place] ([facility]) Clonazepam 0.5 MG Oral Tablet clonazepam 0.5 mg tablet TAKE ONE TABLET BY MOUTH EVERY DAY MAXIMUM DAILY DOSE ONE TABLET clonazepam 0.5 mg tablet TAKE ONE TABLET BY MOUTH EVERY DAY MAXIMUM DAILY DOSE ONE TABLET completed clonazepam 0.5 MG Oral Tablet AT [facility] ([facility]) Clonidine Hydrochloride 0.2 MG Oral Tablet clonidine H Cl 0.2 mg tablet clonidine HCl 0.2 mg tablet completed clonidine hydrochloride 0.2 MG Oral Tablet [place] ([facility]) Ergocalciferol 03434 UNT Oral Capsule Vi tamin D2 1,250 mcg (50,000 unit) capsule Vitamin D2 1,250 mcg (50,000 unit) capsule completed ergocalciferol 1.25 MG Oral Capsule [place] ([facility]) benztropine mesylate 0.5 MG Oral Tablet benztropine 0. 5 mg tablet benztropine 0.5 mg tablet completed benztrop ine mesylate 0.5 MG Oral Tablet [place] ([facility]) Docusate Sodium 50 MG / sennosides, GROUP HOME 8.6 MG Oral Tablet sennosides 8.6 mg- docusate sodium 50 mg tablet Take 2 tablets by oral route at bedtime. sennosides 8.6 mg-docusate sodium 50 mg tablet Take 2 tablets by oral route at bedtime. 2 completed docusate sodiu m 50 MG / sennosides, GROUP HOME 8.6 MG Oral Tablet [place] ([facility]) OneTouch Delica Plus Lancet 33 gauge [id number] completed OneTouch Delica Plus Lancet 33 gauge [place] ([facility]) Prazosin 1 MG Oral Capsule prazosin 1 mg capsule prazosin 1 mg capsule completed prazosin 1 MG Oral Capsul e [place] ([facility]) Clindamycin 150 MG Oral Capsule clindamycin HCl 150 mg capsule clindamycin HCl 150 mg capsule completed clindam ycin 150 MG Oral Capsule [place] ([facility]) ziprasidone 60 MG Oral Capsule ziprasidone 60 mg capsu le ziprasidone 60 mg capsule completed ziprasidone 60 MG Oral Capsule [place] ([facility]) Docusate Sodium 100 MG Oral Capsule [DOK] DOK 100 mg capsule DOK 100 mg capsule completed docusate sodiu m 100 MG Oral Capsule [DOK] [place] ([facility]) Ergocalciferol 52239 UNT Oral Capsule Vi tamin D2 1,250 mcg (50,000 unit) capsule Vitamin D2 1,250 mcg (50,000 unit) capsule completed ergocalciferol 1.25 MG Oral Capsule [place] ([facility]) Triamcinolone Acetonide 1 MG/ML Topical Cream triamcinolone acetonide 0.1 % topical cream triamcinolone acetonide 0.1 % topical cream completed triamcinolone acetonide 1 MG/ML Topical Cream [place] ([facility]) Ketoconazole 20 MG/ML Medicated Shampoo ketoconazole 2 % shampoo ketoconazole 2 % shampoo completed ketoconazole 20 MG/ML Medicated Shampoo [place] ([facility]) Mirtazapine 15 MG Oral Tablet mirtazapine 15 mg tablet derrick zapine 15 mg tablet completed mirtazapine 15 MG Oral Tablet [place] ([facility]) lamotrigine 25 MG Oral Tablet lamotrigine 25 mg tablet lamot rigine 25 mg tablet completed lamotrigine 25 MG Oral Tablet [place] ([facility]) Clindamycin 150 MG Oral Capsule clindamycin HCl 150 mg capsule clindamycin HCl 150 mg capsule completed clindam ycin 150 MG Oral Capsule JEFF ([facility]) Amitriptyline Hydrochloride 75 MG Oral Tablet amitript yline 75 mg tablet amitriptyline 75 mg tablet completed amitriptyline hydrochloride 75 MG Oral Tablet JEFF ([facility]) Ketoconazole 20 MG/ML Medicated Shampoo ketoconazole 2 % shampoo ketoconazole 2 % shampoo completed ketoconazole 20 MG/ML Medicated Shampoo [place] ([facility]) Clonazepam 1 MG Oral Tablet clonazepam 1 mg tablet clonazepam 1 mg ta blet completed clonazepam 1 MG Oral Tablet JEFF ([facility]) Isopropyl Alcohol 0.7 ML/ML Medicated Pad Alcohol Prep Pads Alco hol Prep Pads completed isopropyl alco hol 0.7 ML/ML Medicated Pad JEFF ([facility]) Clonazepam 1 MG Oral Tablet clonazepam 1 mg tablet clonazepam 1 mg ta blet completed clonazepam 1 MG Oral Tablet [place] ([facility]) Mirtazapine 15 MG Oral Tablet mirtazapine 15 mg tablet derrick zapine 15 mg tablet completed mirtazapine 15 MG Oral Tablet [place] ([facility]) Mirtazapine 15 MG Oral Tablet mirtazapine 15 mg tablet derrick zapine 15 mg tablet completed mirtazapine 15 MG Oral Tablet [place] ([facility]) Clonidine Hydrochloride 0.2 MG Oral Tablet clonidine H Cl 0.2 mg tablet clonidine HCl 0.2 mg tablet completed clonidine hydrochloride 0.2 MG Oral Tablet [place] ([facility]) Famotidine 20 MG Oral Tablet famotidine 20 mg tablet famotidine 20 mg tablet completed famotidine 20 MG Oral Tablet [place] ([facility]) buspirone hydrochloride 15 MG Oral Table t buspirone 15 mg tablet TAKE ONE TABLET BY MOUTH THREE TIMES A DAY buspirone 15 mg tablet TAKE ONE TABLET B Y MOUTH THREE TIMES A DAY completed buspirone hydrochloride 15 MG Oral Tablet [place] ([facility]) Ergocalciferol 13437 UNT Oral Capsule Vi tamin D2 1,250 mcg (50,000 unit) capsule Vitamin D2 1,250 mcg (50,000 unit) capsule completed ergocalciferol 1.25 MG Oral Capsule [place] ([facility]) OneTouch Verio test strips USE DIRECTED UP TO TWO TIMES A DAY [id number] completed OneTouch Verio test strip s [place] ([facility]) benztropine mesylate 0.5 MG Oral Tablet benztropine 0. 5 mg tablet benztropine 0.5 mg tablet completed benztrop ine mesylate 0.5 MG Oral Tablet [place] ([facility]) sennosides 8.6 mg-docusate sodium 50 mg capsule Take 2 capsules by oral route at bedtime. [id number] 2 capsule(s) completed docusate sodium 50 MG / sennosides, GROUP HOME 8.6 MG Oral Capsule [place] ([facility]) 0.5 ML dulaglutide 1.5 MG/ML Auto-Inject or [Trulicity] Trulicity 0.75 mg/0.5 mL subcutaneous pen injector Trulicity 0.75 mg/0.5 mL subcutaneous pen injector completed 0.5 ML dulaglu tide 1.5 MG/ML Auto-Injector [Trulicity] [place] ([facility]) Triamcinolone Acetonide 1 MG/ML Topical Cream triamcinolone acetonide 0.1 % topical cream triamcinolone acetonide 0.1 % topical cream completed triamcinolone acetonide 1 MG/ML Topical Cream [place] ([facility]) benztropine mesylate 0.5 MG Oral Tablet benztropine 0. 5 mg tablet benztropine 0.5 mg tablet completed benztrop ine mesylate 0.5 MG Oral Tablet JE[facility] ([facility]) benzonatate 200 MG Oral Capsule benzonatate 200 mg cap [place] benzonatate 200 mg capsule completed benzonatate 20 0 MG Oral Capsule JEFF ([facility]) Propranolol Hydrochloride 20 MG Oral Tablet propranolo l 20 mg tablet propranolol 20 mg tablet completed propranolol hydrochloride 20 MG Oral Tablet JEFF ([facility]) OneTouch Verio test strips USE UP TO TWO TIMES A DAY DIRECTED [id number] completed OneTouch Verio test strip s JEFF ([facility]) benzonatate 200 MG Oral Capsule benzonatate 200 mg cap [place] benzonatate 200 mg capsule completed benzonatate 20 0 MG Oral Capsule JEFF ([facility]) Prazosin 1 MG Oral Capsule prazosin 1 mg capsule prazosin 1 mg capsule completed prazosin 1 MG Oral Capsul e JEFF ([facility]) benzonatate 200 MG Oral Capsule benzonatate 200 mg cap [place] benzonatate 200 mg capsule completed benzonatate 20 0 MG Oral Capsule JEFF ([facility]) Mirtazapine 45 MG Oral Tablet mirtazapine 45 mg tablet derrick zapine 45 mg tablet completed mirtazapine 45 MG Oral Tablet JEFF ([facility]) buspirone hydrochloride 7.5 MG Oral Tablet buspirone 7 .5 mg tablet buspirone 7.5 mg tablet completed buspirone h ydrochloride 7.5 MG Oral Tablet JEFF ([facility]) Amitriptyline Hydrochloride 50 MG Oral Tablet amitript yline 50 mg tablet amitriptyline 50 mg tablet completed amitriptyline hydrochloride 50 MG Oral Tablet [place] ([facility]) ziprasidone 60 MG Oral Capsule ziprasidone 60 mg capsu le ziprasidone 60 mg capsule completed ziprasidone 60 MG Oral Capsule JEFF ([facility]) Clindamycin 150 MG Oral Capsule clindamycin HCl 150 mg capsule clindamycin HCl 150 mg capsule completed clindam ycin 150 MG Oral Capsule JEFF ([facility]) Mirtazapine 45 MG Oral Tablet mirtazapine 45 mg tablet derrick zapine 45 mg tablet completed mirtazapine 45 MG Oral Tablet [place] ([facility]) buspirone hydrochloride 7.5 MG Oral Tablet buspirone 7 .5 mg tablet buspirone 7.5 mg tablet completed buspirone h ydrochloride 7.5 MG Oral Tablet JEFF ([facility]) benzonatate 200 MG Oral Capsule benzonatate 200 mg cap ken[place] benzonatate 200 mg capsule completed benzonatate 20 0 MG Oral Capsule [place] ([facility]) Famotidine 20 MG Oral Tablet famotidine 20 mg tablet famotidine 20 mg tablet completed famotidine 20 MG Oral Tablet JEFF ([facility]) Ergocalciferol [id number] UNT Oral Capsule Vi tamin D2 1,250 mcg (50,000 unit) capsule Vitamin D2 1,250 mcg (50,000 unit) capsule completed ergocalciferol 1.25 MG Oral Capsule JEFF ([facility]) 0.5 ML dulaglutide 1.5 MG/ML Auto-Inject or [Trulicity] Trulicity 0.75 mg/0.5 mL subcutaneous pen injector Trulicity 0.75 mg/0.5 mL subcutaneous pen injector completed 0.5 ML dulaglu tide 1.5 MG/ML Auto-Injector [Trulicity] JEFF ([facility]) buspirone hydrochloride 7.5 MG Oral Tablet buspirone 7 .5 mg tablet buspirone 7.5 mg tablet completed buspirone h ydrochloride 7.5 MG Oral Tablet JEFF ([facility]) cefdinir 300 MG Oral Capsule cefdinir 300 mg capsule cefdinir 30 0 mg capsule completed cefdinir 300 M G Oral Capsule [place] ([facility]) Amitriptyline Hydrochloride 50 MG Oral Tablet amitript yline 50 mg tablet amitriptyline 50 mg tablet completed amitriptyline hydrochloride 50 MG Oral Tablet JEFF ([facility]) Mirtazapine 15 MG Oral Tablet mirtazapine 15 mg tablet derrick zapine 15 mg tablet completed mirtazapine 15 MG Oral Tablet JEFF ([facility]) Clonidine Hydrochloride 0.2 MG Oral Tablet clonidine H Cl 0.2 mg tablet clonidine HCl 0.2 mg tablet completed clonidine hydrochloride 0.2 MG Oral Tablet JEFF ([facility]) Clonazepam 1 MG Oral Tablet clonazepam 1 mg tablet clonazepam 1 mg ta blet completed clonazepam 1 MG Oral Tablet [place] ([facility]) sennosides 8.6 mg-docusate sodium 50 mg capsule Take 2 capsules by oral route at bedtime. [id number] 2 capsule(s) completed docusate sodium 50 MG / sennosides, GROUP HOME 8.6 MG Oral Capsule JEFF ([facility]) Azithromycin 250 MG Oral Tablet azithromycin 250 mg ta blet azithromycin 250 mg tablet completed azithromycin 25 0 MG Oral Tablet [place] ([facility]) cefdinir 300 MG Oral Capsule cefdinir 300 mg capsule cefdinir 30 0 mg capsule completed cefdinir 300 M G Oral Capsule JEFF ([facility]) Docusate Sodium 50 MG / sennosides, GROUP HOME 8.6 MG Oral Tablet sennosides 8.6 mg- docusate sodium 50 mg tablet Take 2 tablets by oral route at bedtime. sennosides 8.6 mg-docusate sodium 50 mg tablet Take 2 tablets by oral route at bedtime. 2 completed docusate sodiu m 50 MG / sennosides, GROUP HOME 8.6 MG Oral Tablet JEFF ([facility]) Clonazepam 1 MG Oral Tablet clonazepam 1 mg tablet clonazepam 1 mg ta blet completed clonazepam 1 MG Oral Tablet JEFF ([facility]) Clonazepam 1 MG Oral Tablet clonazepam 1 mg tablet clonazepam 1 mg ta blet completed clonazepam 1 MG Oral Tablet JEFF ([facility]) benztropine mesylate 0.5 MG Oral Tablet benztropine 0. 5 mg tablet benztropine 0.5 mg tablet completed benztrop ine mesylate 0.5 MG Oral Tablet JEFF ([facility]) ziprasidone 60 MG [facility] mg capsule completed ziprasidone 60 MG Oral Capsule JEFF ([facility]) Amitriptyline Hydrochloride 75 MG Oral Tablet amitript yline 75 mg tablet amitriptyline 75 mg tablet completed amitriptyline hydrochloride 75 MG Oral Tablet JEFF ([facility]) Docusate Sodium 50 MG / sennosides, GROUP HOME 8.6 MG Oral Tablet sennosides 8.6 mg- docusate sodium 50 mg tablet Take 2 tablets by oral route at bedtime. sennosides 8.6 mg-docusate sodium 50 mg tablet Take 2 tablets by oral route at bedtime. 2 completed docusate sodiu m 50 MG / sennosides, GROUP HOME 8.6 MG Oral Tablet JEFF ([facility]) benztropine mesylate 0.5 MG Oral Tablet benztropine 0. 5 mg tablet benztropine 0.5 mg tablet completed benztrop ine mesylate 0.5 MG Oral Tablet JEFF ([facility]) Steglatro 5 mg tablet [id number] completed ertugliflozin 5 MG Oral Tablet [Steglatro] JEFF ([facility]) buspirone hydrochloride 10 MG Oral Tablet buspirone 10 mg tablet buspirone 10 mg tablet completed buspirone hydr ochloride 10 MG Oral Tablet JEFF ([facility]) OneTouch Delica Plus Lancet 33 gauge [id number] completed OneTouch Delica Plus Lancet 33 gauge JEFF ([facility]) Prazosin 1 MG Oral Capsule prazosin 1 mg capsule prazosin 1 mg capsule completed prazosin 1 MG Oral Capsul e JEFF ([facility]) Clonazepam 0.5 MG Disintegrating Oral Ta blet clonazepam 0.5 mg disintegrating tablet clonazepam 0.5 mg disintegrating tablet completed clonazepam 0.5 MG Disintegrating Oral Tablet JEFF ([facility]) Docusate Sodium 50 MG / sennosides, GROUP HOME 8.6 MG Oral Tablet sennosides 8.6 mg- docusate sodium 50 mg tablet Take 2 tablets by oral route at bedtime. sennosides 8.6 mg-docusate sodium 50 mg tablet Take 2 tablets by oral route at bedtime. 2 completed docusate sodiu m 50 MG / sennosides, GROUP HOME 8.6 MG Oral Tablet JEFF ([facility]) Docusate Sodium 50 MG / sennosides, GROUP HOME 8.6 MG Oral Tablet sennosides 8.6 mg- docusate sodium 50 mg tablet Take 2 tablets by oral route at bedtime. sennosides 8.6 mg-docusate sodium 50 mg tablet Take 2 tablets by oral route at bedtime. 2 completed docusate sodiu m 50 MG / sennosides, GROUP HOME 8.6 MG Oral Tablet JEFF ([facility]) Steglatro 5 mg tablet [id number] completed ertugliflozin 5 MG Oral Tablet [Steglatro] JEFF ([facility]) ziprasidone 60 MG Oral Capsule ziprasidone 60 mg capsu le ziprasidone 60 mg capsule completed ziprasidone 60 MG Oral Capsule JEFF ([facility]) Amitriptyline Hydrochloride 50 MG Oral Tablet amitript yline 50 mg tablet amitriptyline 50 mg tablet completed amitriptyline hydrochloride 50 MG Oral Tablet JEFF ([facility]) Prazosin 1 MG Oral Capsule prazosin 1 mg capsule prazosin 1 mg capsule completed prazosin 1 MG Oral Capsul e JEFF ([facility]) sennosides, GROUP HOME 8.6 MG Oral Tablet [Senna-Time] senna 8.6 mg tablet senna 8.6 mg tablet completed sennosi azam, GROUP HOME 8.6 MG Oral Tablet [Senna-Time] [place] ([facility]) 0.5 ML dulaglutide 1.5 MG/ML Auto-Inject or [Trulicity] Trulicity 0.75 mg/0.5 mL subcutaneous pen injector Trulicity 0.75 mg/0.5 mL subcutaneous pen injector completed 0.5 ML dulaglu tide 1.5 MG/ML Auto-Injector [Trulicity] [place] ([facility]) Mirtazapine 45 MG Oral Tablet mirtazapine 45 mg tablet derrick zapine 45 mg tablet completed mirtazapine 45 MG Oral Tablet [place] ([facility]) Docusate Sodium 50 MG / sennosides, GROUP HOME 8.6 MG Oral Tablet sennosides 8.6 mg- docusate sodium 50 mg tablet Take 2 tablets by oral route at bedtime. sennosides 8.6 mg-docusate sodium 50 mg tablet Take 2 tablets by oral route at bedtime. 2 completed docusate sodiu m 50 MG / sennosides, GROUP HOME 8.6 MG Oral Tablet [place] ([facility]) buspirone hydrochloride 10 MG Oral Tablet buspirone 10 mg tablet buspirone 10 mg tablet completed buspirone hydr ochloride 10 MG Oral Tablet [place] ([facility]) Mirtazapine 45 MG Oral Tablet mirtazapine 45 mg tablet derrick zapine 45 mg tablet completed mirtazapine 45 MG Oral Tablet JEFF ([facility]) Amitriptyline Hydrochloride 50 MG Oral Tablet amitript yline 50 mg tablet amitriptyline 50 mg tablet completed amitriptyline hydrochloride 50 MG Oral Tablet JEFF ([facility]) Clonazepam 1 MG Oral Tablet clonazepam 1 mg tablet clonazepam 1 mg ta blet completed clonazepam 1 MG Oral Tablet JEFF ([facility]) Ketoconazole 20 MG/ML Medicated Shampoo ketoconazole 2 % shampoo ketoconazole 2 % shampoo completed ketoconazole 20 MG/ML Medicated Shampoo JEFF ([facility]) OneTouch Verio test strips USE UP TO TWO TIMES A DAY DIRECTED [id number] completed OneTouch Verio test strip s JEFF ([facility]) Famotidine 20 MG Oral Tablet famotidine 20 mg tablet famotidine 20 mg tablet completed famotidine 20 MG Oral Tablet JEFF ([facility]) Clonazepam 1 MG Oral Tablet clonazepam 1 mg tablet clonazepam 1 mg ta blet completed clonazepam 1 MG Oral Tablet JEFF ([facility]) Azithromycin 250 MG Oral Tablet azithromycin 250 mg ta blet azithromycin 250 mg tablet completed azithromycin 25 0 MG Oral Tablet [place] ([facility]) Mirtazapine 45 MG Oral Tablet mirtazapine 45 mg tablet derrick zapine 45 mg tablet completed mirtazapine 45 MG Oral Tablet [place] ([facility]) Amitriptyline Hydrochloride 75 MG Oral Tablet amitript yline 75 mg tablet amitriptyline 75 mg tablet completed amitriptyline hydrochloride 75 MG Oral Tablet JEFF ([facility]) Ketoconazole 20 MG/ML Medicated Shampoo ketoconazole 2 % shampoo ketoconazole 2 % shampoo completed ketoconazole 20 MG/ML Medicated Shampoo [place] ([facility]) Clonazepam 1 MG Oral Tablet clonazepam 1 mg tablet clonazepam 1 mg ta blet completed clonazepam 1 MG Oral Tablet JEFF ([facility]) Triamcinolone Acetonide 1 MG/ML Topical Cream triamcinolone acetonide 0.1 % topical cream triamcinolone acetonide 0.1 % topical cream completed triamcinolone acetonide 1 MG/ML Topical Cream [place] ([facility]) Famotidine 20 MG Oral Tablet famotidine 20 mg tablet famotidine 20 mg tablet completed famotidine 20 MG Oral Tablet JEFF ([facility]) Steglatro 5 mg tablet [id number] completed ertugliflozin 5 MG Oral Tablet [Steglatro] JEFF ([facility]) Clonazepam 0.5 MG Oral Tablet clonazepam 0.5 mg tablet TAKE ONE TABLET BY MOUTH NEEDED FOR 3 DAYS THEN ONE HALF TABLET UNTIL FINISHED MAXIMUM DAILY DOSE ONE TABLET clonazepam 0.5 mg tablet TAKE ONE TABLET BY MOUTH NEEDED FOR 3 DAYS THEN ONE HALF TABLET UNTIL FINISHED MAXIMUM DAILY DOSE ONE TABLET completed clonazepam 0.5 MG Or al Tablet JEFF ([facility]) Mirtazapine 45 MG Oral Tablet mirtazapine 45 mg tablet derrick zapine 45 mg tablet completed mirtazapine 45 MG Oral Tablet [place] ([facility]) Ketoconazole 20 MG/ML Medicated Shampoo ketoconazole 2 % shampoo ketoconazole 2 % shampoo completed ketoconazole 20 MG/ML Medicated Shampoo JEFF ([facility]) Azithromycin 250 MG Oral Tablet azithromycin 250 mg ta blet azithromycin 250 mg tablet completed azithromycin 25 0 MG Oral Tablet JEFF ([facility]) cefdinir 300 MG Oral Capsule cefdinir 300 mg capsule cefdinir 30 0 mg capsule completed cefdinir 300 M G Oral Capsule [place] ([facility]) OneTouch Verio Flex Meter [id number] compl eted OneTouch Verio Flex Meter [place] ([facility]) Simvastatin 10 MG Oral Tablet simvastati n 10 mg tablet TAKE ONE TABLET BY MOUTH EVERY DAY simvastatin 10 mg tablet TAKE ONE TABLET BY MOUTH EVERY DAY completed simvastatin 10 MG Oral Table t [place] ([facility]) buspirone hydrochloride 7.5 MG Oral Tablet buspirone 7 .5 mg tablet buspirone 7.5 mg tablet completed buspirone h ydrochloride 7.5 MG Oral Tablet [place] ([facility]) Famotidine 20 MG Oral Tablet famotidine 20 mg tablet famotidine 20 mg tablet completed famotidine 20 MG Oral Tablet [place] ([facility]) buspirone hydrochloride 7.5 MG Oral Tablet buspirone 7 .5 mg tablet buspirone 7.5 mg tablet completed buspirone h ydrochloride 7.5 MG Oral Tablet JEFF ([facility]) buspirone hydrochloride 7.5 MG Oral Tablet buspirone 7 .5 mg tablet buspirone 7.5 mg tablet completed buspirone h ydrochloride 7.5 MG Oral Tablet [place] ([facility]) sennosides 8.6 mg-docusate sodium 50 mg capsule Take 2 capsules by oral route at bedtime. [id number] 2 capsule(s) completed docusate sodium 50 MG / sennosides, GROUP HOME 8.6 MG Oral Capsule JEFF ([facility]) cefdinir 300 MG Oral Capsule cefdinir 300 mg capsule cefdinir 30 0 mg capsule completed cefdinir 300 M G Oral Capsule JEFF ([facility]) Triamcinolone Acetonide 1 MG/ML Topical Cream triamcinolone acetonide 0.1 % topical cream triamcinolone acetonide 0.1 % topical cream completed triamcinolone acetonide 1 MG/ML Topical Cream [place] ([facility]) Docusate Sodium 100 MG Oral Capsule [DOK] DOK 100 mg capsule DOK 100 mg capsule completed docusate sodiu m 100 MG Oral Capsule [DOK] [place] ([facility]) benzonatate 200 MG Oral Capsule benzonatate 200 mg cap [place] benzonatate 200 mg capsule completed benzonatate 20 0 MG Oral Capsule [place] ([facility]) Simvastatin 10 MG Oral Tablet simvastati n 10 mg tablet TAKE ONE TABLET BY MOUTH EVERY DAY simvastatin 10 mg tablet TAKE ONE TABLET BY MOUTH EVERY DAY completed simvastatin 10 MG Oral Table t JEFF ([facility]) Clonazepam 1 MG Oral Tablet clonazepam 1 mg tablet clonazepam 1 mg ta blet completed clonazepam 1 MG Oral Tablet [place] ([facility]) Steglatro 5 mg tablet [id number] completed ertugliflozin 5 MG Oral Tablet [Steglatro] [place] ([facility]) Clonidine Hydrochloride 0.2 MG Oral Tablet clonidine H Cl 0.2 mg tablet clonidine HCl 0.2 mg tablet completed clonidine hydrochloride 0.2 MG Oral Tablet JEFF ([facility]) OneTouch Verio Flex Meter [id number] compl eted OneTouch Verio Flex Meter JEFF ([facility]) Mirtazapine 45 MG Oral Tablet mirtazapine 45 mg tablet derrick zapine 45 mg tablet completed mirtazapine 45 MG Oral Tablet [place] ([facility]) Amitriptyline Hydrochloride 50 MG Oral Tablet amitript yline 50 mg tablet amitriptyline 50 mg tablet completed amitriptyline hydrochloride 50 MG Oral Tablet [place] ([facility]) Famotidine 20 MG Oral Tablet famotidine 20 mg tablet famotidine 20 mg tablet completed famotidine 20 MG Oral Tablet JEFF ([facility]) Clonidine Hydrochloride 0.2 MG Oral Tablet clonidine H Cl 0.2 mg tablet clonidine HCl 0.2 mg tablet completed clonidine hydrochloride 0.2 MG Oral Tablet JEFF ([facility]) OneTouch Verio Flex Meter [id number] compl eted OneTouch Verio Flex Meter JEFF ([facility]) Mirtazapine 45 MG Oral Tablet mirtazapine 45 mg tablet derrick zapine 45 mg tablet completed mirtazapine 45 MG Oral Tablet [place] ([facility]) Clonazepam 1 MG Oral Tablet clonazepam 1 mg tablet clonazepam 1 mg ta blet completed clonazepam 1 MG Oral Tablet [place] ([facility]) Steglatro 5 mg tablet [id number] completed ertugliflozin 5 MG Oral Tablet [Steglatro] [place] ([facility]) Amitriptyline Hydrochloride 50 MG Oral Tablet amitript yline 50 mg tablet amitriptyline 50 mg tablet completed amitriptyline hydrochloride 50 MG Oral Tablet [place] ([facility]) Mirtazapine 15 MG Oral Tablet mirtazapine 15 mg tablet derrick zapine 15 mg tablet completed mirtazapine 15 MG Oral Tablet [place] ([facility]) benzonatate 200 MG Oral Capsule benzonatate 200 mg cap [place] benzonatate 200 mg capsule completed benzonatate 20 0 MG Oral Capsule [place] ([facility]) Steglatro 5 mg tablet [id number] completed ertugliflozin 5 MG Oral Tablet [Steglatro] JEFF ([facility]) buspirone hydrochloride 10 MG Oral Tablet buspirone 10 mg tablet buspirone 10 mg tablet completed buspirone hydr ochloride 10 MG Oral Tablet [place] ([facility]) Propranolol Hydrochloride 20 MG Oral Tablet propranolo l 20 mg tablet propranolol 20 mg tablet completed propranolol hydrochloride 20 MG Oral Tablet [place] ([facility]) BD Ultra-Fine Short Pen Needle 31 gauge x 5/16" USE ONCE DAILY [id number] completed BD Ultra-Fine Short Pen Need le 31 gauge x 5/16" [place] ([facility]) Steglatro 5 mg tablet [id number] completed ertugliflozin 5 MG Oral Tablet [Steglatro] JEFF ([facility]) buspirone hydrochloride 10 MG Oral Tablet buspirone 10 mg tablet buspirone 10 mg tablet completed buspirone hydr ochloride 10 MG Oral Tablet JEFF ([facility]) lamotrigine 25 MG Oral Tablet lamotrigine 25 mg tablet lamot rigine 25 mg tablet completed lamotrigine 25 MG Oral Tablet JEFF ([facility]) Isopropyl Alcohol 0.7 ML/ML Medicated Pad Alcohol Prep Pads Alco hol Prep Pads completed isopropyl alco hol 0.7 ML/ML Medicated Pad JEFF ([facility]) cefdinir 300 MG Oral Capsule cefdinir 300 mg capsule cefdinir 30 0 mg capsule completed cefdinir 300 M G Oral Capsule [place] ([facility]) Azithromycin 250 MG Oral Tablet azithromycin 250 mg ta blet azithromycin 250 mg tablet completed azithromycin 25 0 MG Oral Tablet [place] ([facility]) sennosides 8.6 mg-docusate sodium 50 mg capsule Take 2 capsules by oral route at bedtime. [id number] 2 capsule(s) completed docusate sodium 50 MG / sennosides, GROUP HOME 8.6 MG Oral Capsule JEFF ([facility]) Propranolol Hydrochloride 20 MG Oral Tablet propranolo l 20 mg tablet propranolol 20 mg tablet completed propranolol hydrochloride 20 MG Oral Tablet [place] ([facility]) Docusate Sodium 50 MG / sennosides, GROUP HOME 8.6 MG Oral Tablet sennosides 8.6 mg- docusate sodium 50 mg tablet Take 2 tablets by oral route at bedtime. sennosides 8.6 mg-docusate sodium 50 mg tablet Take 2 tablets by oral route at bedtime. 2 completed docusate sodiu m 50 MG / sennosides, GROUP HOME 8.6 MG Oral Tablet JEFF ([facility]) OneTouch Delica Plus Lancet 33 gauge [id number] completed OneTouch Delica Plus Lancet 33 gauge JEFF ([facility]) buspirone hydrochloride 7.5 MG Oral Tablet buspirone 7 .5 mg tablet buspirone 7.5 mg tablet completed buspirone h ydrochloride 7.5 MG Oral Tablet JEFF ([facility]) Azithromycin 250 MG Oral Tablet azithromycin 250 mg ta blet azithromycin 250 mg tablet completed azithromycin 25 0 MG Oral Tablet JEFF ([facility]) Clonidine Hydrochloride 0.2 MG Oral Tablet clonidine H Cl 0.2 mg tablet clonidine HCl 0.2 mg tablet completed clonidine hydrochloride 0.2 MG Oral Tablet JEFF ([facility]) Clonidine Hydrochloride 0.2 MG Oral Tablet clonidine H Cl 0.2 mg tablet clonidine HCl 0.2 mg tablet completed clonidine hydrochloride 0.2 MG Oral Tablet JEFF ([facility]) Clonazepam 1 MG Oral Tablet clonazepam 1 mg tablet clonazepam 1 mg ta blet completed clonazepam 1 MG Oral Tablet [place] ([facility]) Simvastatin 10 MG Oral Tablet simvastati n 10 mg tablet TAKE ONE TABLET BY MOUTH EVERY DAY simvastatin 10 mg tablet TAKE ONE TABLET BY MOUTH EVERY DAY completed simvastatin 10 MG Oral Table t [place] ([facility]) benztropine mesylate 0.5 MG Oral Tablet benztropine 0. 5 mg tablet benztropine 0.5 mg tablet completed benztrop ine mesylate 0.5 MG Oral Tablet JEFF ([facility]) lamotrigine 25 MG Oral Tablet lamotrigine 25 mg tablet lamot rigine 25 mg tablet completed lamotrigine 25 MG Oral Tablet [place] ([facility]) Amitriptyline Hydrochloride 75 MG Oral Tablet amitript yline 75 mg tablet amitriptyline 75 mg tablet completed amitriptyline hydrochloride 75 MG Oral Tablet JEFF ([facility]) Mirtazapine 15 MG Oral Tablet mirtazapine 15 mg tablet derrick zapine 15 mg tablet completed mirtazapine 15 MG Oral Tablet JEFF ([facility]) Propranolol Hydrochloride 20 MG Oral Tablet propranolo l 20 mg tablet propranolol 20 mg tablet completed propranolol hydrochloride 20 MG Oral Tablet JEFF ([facility]) OneTouch Delica Plus Lancet 33 gauge [id number] completed OneTouch Delica Plus Lancet 33 gauge JEFF ([facility]) Azithromycin 250 MG Oral Tablet azithromycin 250 mg ta blet azithromycin 250 mg tablet completed azithromycin 25 0 MG Oral Tablet [place] ([facility]) Docusate Sodium 50 MG / sennosides, GROUP HOME 8.6 MG Oral Tablet sennosides 8.6 mg- docusate sodium 50 mg tablet Take 2 tablets by oral route at bedtime. sennosides 8.6 mg-docusate sodium 50 mg tablet Take 2 tablets by oral route at bedtime. 2 completed docusate sodiu m 50 MG / sennosides, GROUP HOME 8.6 MG Oral Tablet JEFF ([facility]) Isopropyl Alcohol 0.7 ML/ML Medicated Pad Alcohol Prep Pads Alco hol Prep Pads completed isopropyl alco hol 0.7 ML/ML Medicated Pad JEFF ([facility]) Amitriptyline Hydrochloride 75 MG Oral Tablet amitript yline 75 mg tablet amitriptyline 75 mg tablet completed amitriptyline hydrochloride 75 MG Oral Tablet [place] ([facility]) 0.5 ML dulaglutide 1.5 MG/ML Auto-Inject or [Trulicity] Trulicity 0.75 mg/0.5 mL subcutaneous pen injector Trulicity 0.75 mg/0.5 mL subcutaneous pen injector completed 0.5 ML dulaglu tide 1.5 MG/ML Auto-Injector [Trulicity] [place] ([facility]) Clonazepam 0.5 MG Disintegrating Oral Ta blet clonazepam 0.5 mg disintegrating tablet clonazepam 0.5 mg disintegrating tablet completed clonazepam 0.5 MG Disintegrating Oral Tablet [place] ([facility]) Docusate Sodium 100 MG Oral Capsule [DOK] DOK 100 mg capsule DOK 100 mg capsule completed docusate sodiu m 100 MG Oral Capsule [DOK] [place] ([facility]) Prazosin 1 MG Oral Capsule prazosin 1 mg capsule prazosin 1 mg capsule completed prazosin 1 MG Oral Capsul e [place] ([facility]) Steglatro 5 mg tablet [id number] completed ertugliflozin 5 MG Oral Tablet [Steglatro] [place] ([facility]) Amitriptyline Hydrochloride 75 MG Oral Tablet amitript yline 75 mg tablet amitriptyline 75 mg tablet completed amitriptyline hydrochloride 75 MG Oral Tablet [place] ([facility]) buspirone hydrochloride 7.5 MG Oral Tablet buspirone 7 .5 mg tablet buspirone 7.5 mg tablet completed buspirone h ydrochloride 7.5 MG Oral Tablet JEFF ([facility]) Clindamycin 150 MG Oral Capsule clindamycin HCl 150 mg capsule clindamycin HCl 150 mg capsule completed clindam ycin 150 MG Oral Capsule JEFF ([facility]) benztropine mesylate 0.5 MG Oral Tablet benztropine 0. 5 mg tablet benztropine 0.5 mg tablet completed benztrop ine mesylate 0.5 MG Oral Tablet JEFF ([facility]) lamotrigine 25 MG Oral Tablet lamotrigine 25 mg tablet lamot rigine 25 mg tablet completed lamotrigine 25 MG Oral Tablet JEFF ([facility]) Clonidine Hydrochloride 0.2 MG Oral Tablet clonidine H Cl 0.2 mg tablet clonidine HCl 0.2 mg tablet completed clonidine hydrochloride 0.2 MG Oral Tablet [place] ([facility]) OneTouch Verio Flex Meter [id number] compl eted OneTouch Verio Flex Meter JEFF ([facility]) Mirtazapine 15 MG Oral Tablet mirtazapine 15 mg tablet derrick zapine 15 mg tablet completed mirtazapine 15 MG Oral Tablet JEFF ([facility]) 0.5 ML dulaglutide 1.5 MG/ML Auto-Inject or [Trulicity] Trulicity 0.75 mg/0.5 mL subcutaneous pen injector Trulicity 0.75 mg/0.5 mL subcutaneous pen injector completed 0.5 ML dulaglu tide 1.5 MG/ML Auto-Injector [Trulicity] JEFF ([facility]) Docusate Sodium 50 MG / sennosides, GROUP HOME 8.6 MG Oral Tablet sennosides 8.6 mg- docusate sodium 50 mg tablet Take 2 tablets by oral route at bedtime. sennosides 8.6 mg-docusate sodium 50 mg tablet Take 2 tablets by oral route at bedtime. 2 completed docusate sodiu m 50 MG / sennosides, GROUP HOME 8.6 MG Oral Tablet JEFF ([facility]) Clonazepam 0.5 MG Disintegrating Oral Ta blet clonazepam 0.5 mg disintegrating tablet clonazepam 0.5 mg disintegrating tablet completed clonazepam 0.5 MG Disintegrating Oral Tablet JEFF ([facility]) Amitriptyline Hydrochloride 75 MG Oral Tablet amitript yline 75 mg tablet amitriptyline 75 mg tablet completed amitriptyline hydrochloride 75 MG Oral Tablet JEFF ([facility]) Docusate Sodium 50 MG / sennosides, GROUP HOME 8.6 MG Oral Tablet sennosides 8.6 mg- docusate sodium 50 mg tablet Take 2 tablets by oral route at bedtime. sennosides 8.6 mg-docusate sodium 50 mg tablet Take 2 tablets by oral route at bedtime. 2 completed docusate sodiu m 50 MG / sennosides, GROUP HOME 8.6 MG Oral Tablet JEFF ([facility]) buspirone hydrochloride 10 MG Oral Tablet buspirone 10 mg tablet buspirone 10 mg tablet completed buspirone hydr ochloride 10 MG Oral Tablet [place] ([facility]) sennosides, GROUP HOME 8.6 MG Oral Tablet [Senna-Time] senna 8.6 mg tablet senna 8.6 mg tablet completed sennosi azam, GROUP HOME 8.6 MG Oral Tablet [Senna-Time] JEFF ([facility]) lamotrigine 25 MG Oral Tablet lamotrigine 25 mg tablet lamot rigine 25 mg tablet completed lamotrigine 25 MG Oral Tablet [place] ([facility]) lamotrigine 100 MG Oral Tablet lamotrigi ne 100 mg tablet TAKE ONE TABLET BY MOUTH ONCE DAILY lamotrigine 100 mg tablet TAKE ONE TABLET BY MOUTH ONC E DAILY completed lamotrigine 10 0 MG Oral Tablet JEFF ([facility]) Propranolol Hydrochloride 20 MG Oral Tablet propranolo l 20 mg tablet propranolol 20 mg tablet completed propranolol hydrochloride 20 MG Oral Tablet JEFF ([facility]) OneTouch Delica Plus Lancet 33 gauge [id number] completed OneTouch Delica Plus Lancet 33 gauge JEFF ([facility]) Prazosin 1 MG Oral Capsule prazosin 1 mg capsule prazosin 1 mg capsule completed prazosin 1 MG Oral Capsul e [place] ([facility]) Simvastatin 10 MG Oral Tablet simvastati n 10 mg tablet TAKE ONE TABLET BY MOUTH EVERY DAY simvastatin 10 mg tablet TAKE ONE TABLET BY MOUTH EVERY DAY completed simvastatin 10 MG Oral Table t JEFF ([facility]) sennosides 8.6 mg-docusate sodium 50 mg capsule Take 2 capsules by oral route at bedtime. [id number] 2 capsule(s) completed docusate sodium 50 MG / sennosides, GROUP HOME 8.6 MG Oral Capsule [place] ([facility]) OneTouch Verio Flex Meter [id number] compl eted OneTouch Verio Flex Meter JEFF ([facility]) buspirone hydrochloride 15 MG Oral Table t buspirone 15 mg tablet TAKE ONE TABLET BY MOUTH THREE TIMES A DAY buspirone 15 mg tablet TAKE ONE TABLET B Y MOUTH THREE TIMES A DAY completed buspirone hydrochloride 15 MG Oral Tablet JEFF ([facility]) Clonazepam 1 MG Oral Tablet clonazepam 1 mg tablet clonazepam 1 mg ta blet completed clonazepam 1 MG Oral Tablet [place] ([facility]) Amitriptyline Hydrochloride 75 MG Oral Tablet amitript yline 75 mg tablet amitriptyline 75 mg tablet completed amitriptyline hydrochloride 75 MG Oral Tablet JEFF ([facility]) Amitriptyline Hydrochloride 75 MG Oral Tablet amitript yline 75 mg tablet amitriptyline 75 mg tablet completed amitriptyline hydrochloride 75 MG Oral Tablet JEFF ([facility]) Clonazepam 0.5 MG Disintegrating Oral Ta blet clonazepam 0.5 mg disintegrating tablet clonazepam 0.5 mg disintegrating tablet completed clonazepam 0.5 MG Disintegrating Oral Tablet [place] ([facility]) Simvastatin 10 MG Oral Tablet simvastati n 10 mg tablet TAKE ONE TABLET BY MOUTH EVERY DAY simvastatin 10 mg tablet TAKE ONE TABLET BY MOUTH EVERY DAY completed simvastatin 10 MG Oral Table t JEFF ([facility]) lamotrigine 25 MG Oral Tablet lamotrigine 25 mg tablet lamot rigine 25 mg tablet completed lamotrigine 25 MG Oral Tablet JEFF ([facility]) 0.5 ML dulaglutide 1.5 MG/ML Auto-Inject or [Trulicity] Trulicity 0.75 mg/0.5 mL subcutaneous pen injector Trulicity 0.75 mg/0.5 mL subcutaneous pen injector completed 0.5 ML dulaglu tide 1.5 MG/ML Auto-Injector [Trulicity] JEFF ([facility]) buspirone hydrochloride 10 MG Oral Tablet buspirone 10 mg tablet buspirone 10 mg tablet completed buspirone hydr ochloride 10 MG Oral Tablet [place] ([facility]) Clonidine Hydrochloride 0.2 MG Oral Tablet clonidine H Cl 0.2 mg tablet clonidine HCl 0.2 mg tablet completed clonidine hydrochloride 0.2 MG Oral Tablet [place] ([facility]) cefdinir 300 MG Oral Capsule cefdinir 300 mg capsule cefdinir 30 0 mg capsule completed cefdinir 300 M G Oral Capsule [place] ([facility]) BD Ultra-Fine Short Pen Needle 31 gauge x 5/16" USE DIRECTED ONCE DAILY [id number] completed BD Ultr a-Fine Short Pen Needle 31 gauge x 5/16" [place] ([facility]) buspirone hydrochloride 15 MG Oral Table t buspirone 15 mg tablet TAKE ONE TABLET BY MOUTH THREE TIMES A DAY buspirone 15 mg tablet TAKE ONE TABLET B Y MOUTH THREE TIMES A DAY completed buspirone hydrochloride 15 MG Oral Tablet [place] ([facility]) Mirtazapine 15 MG Oral Tablet mirtazapine 15 mg tablet derrick zapine 15 mg tablet completed mirtazapine 15 MG Oral Tablet [place] ([facility]) OneTouch Verio test strips USE DIRECTED UP TO TWO TIMES A DAY 92017 [id number] completed OneTouch Verio test strip s [place] ([facility]) cefdinir 300 MG Oral Capsule cefdinir 300 mg capsule cefdinir 30 0 mg capsule completed cefdinir 300 M G Oral Capsule [place] ([facility]) sennosides 8.6 mg-docusate sodium 50 mg capsule Take 2 capsules by oral route at bedtime. [id number] 2 capsule(s) completed docusate sodium 50 MG / sennosides, GROUP HOME 8.6 MG Oral Capsule [place] ([facility]) Docusate Sodium 100 MG Oral Capsule [DOK] DOK 100 mg capsule DOK 100 mg capsule completed docusate sodiu m 100 MG Oral Capsule [DOK] [place] ([facility]) Amitriptyline Hydrochloride 75 MG Oral Tablet amitript yline 75 mg tablet amitriptyline 75 mg tablet completed amitriptyline hydrochloride 75 MG Oral Tablet [place] ([facility]) buspirone hydrochloride 10 MG Oral Tablet buspirone 10 mg tablet buspirone 10 mg tablet completed buspirone hydr ochloride 10 MG Oral Tablet [place] ([facility]) benztropine mesylate 0.5 MG Oral Tablet benztropine 0. 5 mg tablet benztropine 0.5 mg tablet completed benztrop ine mesylate 0.5 MG Oral Tablet [place] ([facility]) Propranolol Hydrochloride 20 MG Oral Tablet propranolo l 20 mg tablet propranolol 20 mg tablet completed propranolol hydrochloride 20 MG Oral Tablet [place] ([facility]) cefdinir 300 MG Oral Capsule cefdinir 300 mg capsule cefdinir 30 0 mg capsule completed cefdinir 300 M G Oral Capsule [place] ([facility]) Simvastatin 10 MG Oral Tablet simvastati n 10 mg tablet TAKE ONE TABLET BY MOUTH EVERY DAY simvastatin 10 mg tablet TAKE ONE TABLET BY MOUTH EVERY DAY completed simvastatin 10 MG Oral Table t [place] ([facility]) Famotidine 20 MG Oral Tablet famotidine 20 mg tablet famotidine 20 mg tablet completed famotidine 20 MG Oral Tablet [place] ([facility]) Triamcinolone Acetonide 1 MG/ML Topical Cream triamcinolone acetonide 0.1 % topical cream triamcinolone acetonide 0.1 % topical cream completed triamcinolone acetonide 1 MG/ML Topical Cream [place] ([facility]) Azithromycin 250 MG Oral Tablet azithromycin 250 mg ta blet azithromycin 250 mg tablet completed azithromycin 25 0 MG Oral Tablet [facility]) benzonatate 200 MG Oral Capsule benzonatate 200 mg cap kenya benzonatate 200 mg capsule completed benzonatate 20 0 MG Oral Capsule [place] ([facility]) buspirone hydrochloride 7.5 MG Oral Tablet buspirone 7 .5 mg tablet buspirone 7.5 mg tablet completed buspirone h ydrochloride 7.5 MG Oral Tablet [place] ([facility]) BD Ultra-Fine Short Pen Needle 31 gauge x 5/16" USE ONCE DAILY [id number] completed BD Ultra-Fine Short Pen Need le 31 gauge x 5/16" [facility]) Famotidine 20 MG Oral Tablet famotidine 20 mg tablet famotidine 20 mg tablet completed famotidine 20 MG Oral Tablet [place] ([facility]) sennosides, GROUP HOME 8.6 MG Oral Tablet [Senna-Time] senna 8.6 mg tablet senna 8.6 mg tablet completed sennosi azam, GROUP HOME 8.6 MG Oral Tablet [Senna-Time] [place] ([facility]) Azithromycin 250 MG Oral Tablet azithromycin 250 mg ta blet azithromycin 250 mg tablet completed azithromycin 25 0 MG Oral Tablet [place] ([facility]) Famotidine 20 MG Oral Tablet famotidine 20 mg tablet famotidine 20 mg tablet completed famotidine 20 MG Oral Tablet [place] ([facility]) Docusate Sodium 50 MG / sennosides, GROUP HOME 8.6 MG Oral Tablet sennosides 8.6 mg- docusate sodium 50 mg tablet Take 2 tablets by oral route at bedtime. sennosides 8.6 mg-docusate sodium 50 mg tablet Take 2 tablets by oral route at bedtime. 2 completed docusate sodiu m 50 MG / sennosides, GROUP HOME 8.6 MG Oral Tablet [place] ([facility]) ziprasidone 60 MG Oral Capsule ziprasidone 60 mg capsu le ziprasidone 60 mg capsule completed ziprasidone 60 MG Oral Capsule [facility]) Ofloxacin 3 MG/ML Otic Solution ofloxaci n 0.3 % ear drops INSTILL 10 DROPS INTO AFFECTED EAR S EVERY DAY ofloxacin 0.3 % ear drops INSTILL 10 VANDANA PS INTO AFFECTED EAR S EVERY DAY completed ofloxacin 3 MG/ML Otic Solution [place] ([facility]) Amitriptyline Hydrochloride 75 MG Oral Tablet amitript yline 75 mg tablet amitriptyline 75 mg tablet completed amitriptyline hydrochloride 75 MG Oral Tablet [place] ([facility]) buspirone hydrochloride 10 MG Oral Tablet buspirone 10 mg tablet buspirone 10 mg tablet completed buspirone hydr ochloride 10 MG Oral Tablet [place] ([facility]) benzonatate 200 MG Oral Capsule benzonatate 200 mg cap kenya benzonatate 200 mg capsule completed benzonatate 20 0 MG Oral Capsule [place] ([facility]) Azithromycin 250 MG Oral Tablet azithromycin 250 mg ta blet azithromycin 250 mg tablet completed azithromycin 25 0 MG Oral Tablet JEFF ([facility]) Clonazepam 0.5 MG Oral Tablet clonazepam 0.5 mg tablet TAKE ONE TABLET BY MOUTH NEEDED FOR 3 DAYS THEN ONE HALF TABLET UNTIL FINISHED MAXIMUM DAILY DOSE ONE TABLET clonazepam 0.5 mg tablet TAKE ONE TABLET BY MOUTH NEEDED FOR 3 DAYS THEN ONE HALF TABLET UNTIL FINISHED MAXIMUM DAILY DOSE ONE TABLET completed clonazepam 0.5 MG Or al Tablet JEFF ([facility]) Mirtazapine 15 MG Oral Tablet mirtazapine 15 mg tablet derrick zapine 15 mg tablet completed mirtazapine 15 MG Oral Tablet JEFF ([facility]) Amitriptyline Hydrochloride 50 MG Oral Tablet amitript yline 50 mg tablet amitriptyline 50 mg tablet completed amitriptyline hydrochloride 50 MG Oral Tablet [place] ([facility]) OneTouch Verio Flex Meter [id number] compl eted OneTouch Verio Flex Meter JEFF ([facility]) Docusate Sodium 50 MG / sennosides, GROUP HOME 8.6 MG Oral Tablet sennosides 8.6 mg- docusate sodium 50 mg tablet Take 2 tablets by oral route at bedtime. sennosides 8.6 mg-docusate sodium 50 mg tablet Take 2 tablets by oral route at bedtime. 2 completed docusate sodiu m 50 MG / sennosides, GROUP HOME 8.6 MG Oral Tablet JEFF ([facility]) cefdinir 300 MG Oral Capsule cefdinir 300 mg capsule cefdinir 30 0 mg capsule completed cefdinir 300 M G Oral Capsule JEFF ([facility]) Simvastatin 10 MG Oral Tablet simvastati n 10 mg tablet TAKE ONE TABLET BY MOUTH EVERY DAY simvastatin 10 mg tablet TAKE ONE TABLET BY MOUTH EVERY DAY completed simvastatin 10 MG Oral Table t JEFF ([facility]) Clonazepam 0.5 MG Disintegrating Oral Ta blet clonazepam 0.5 mg disintegrating tablet clonazepam 0.5 mg disintegrating tablet completed clonazepam 0.5 MG Disintegrating Oral Tablet JEFF ([facility]) Simvastatin 10 MG Oral Tablet simvastati n 10 mg tablet TAKE ONE TABLET BY MOUTH EVERY DAY simvastatin 10 mg tablet TAKE ONE TABLET BY MOUTH EVERY DAY completed simvastatin 10 MG Oral Table t JEFF ([facility]) Docusate Sodium 50 MG / sennosides, GROUP HOME 8.6 MG Oral Tablet sennosides 8.6 mg- docusate sodium 50 mg tablet Take 2 tablets by oral route at bedtime. sennosides 8.6 mg-docusate sodium 50 mg tablet Take 2 tablets by oral route at bedtime. 2 completed docusate sodiu m 50 MG / sennosides, GROUP HOME 8.6 MG Oral Tablet JEFF ([facility]) Triamcinolone Acetonide 1 MG/ML Topical Cream triamcinolone acetonide 0.1 % topical cream triamcinolone acetonide 0.1 % topical cream completed triamcinolone acetonide 1 MG/ML Topical Cream [place] ([facility]) Mirtazapine 45 MG Oral Tablet mirtazapine 45 mg tablet derrick zapine 45 mg tablet completed mirtazapine 45 MG Oral Tablet [place] ([facility]) ziprasidone 60 MG Oral Capsule ziprasidone 60 mg capsu le ziprasidone 60 mg capsule completed ziprasidone 60 MG Oral Capsule JEFF ([facility]) benztropine mesylate 0.5 MG Oral Tablet benztropine 0. 5 mg tablet benztropine 0.5 mg tablet completed benztrop ine mesylate 0.5 MG Oral Tablet [place] ([facility]) Docusate Sodium 50 MG / sennosides, GROUP HOME 8.6 MG Oral Tablet sennosides 8.6 mg- docusate sodium 50 mg tablet Take 2 tablets by oral route at bedtime. sennosides 8.6 mg-docusate sodium 50 mg tablet Take 2 tablets by oral route at bedtime. 2 completed docusate sodiu m 50 MG / sennosides, GROUP HOME 8.6 MG Oral Tablet [place] ([facility]) lamotrigine 25 MG Oral Tablet lamotrigine 25 mg tablet lamot rigine 25 mg tablet completed lamotrigine 25 MG Oral Tablet [place] ([facility]) Ketoconazole 20 MG/ML Medicated Shampoo ketoconazole 2 % shampoo ketoconazole 2 % shampoo completed ketoconazole 20 MG/ML Medicated Shampoo JEFF ([facility]) Mirtazapine 45 MG Oral Tablet mirtazapine 45 mg tablet derrick zapine 45 mg tablet completed mirtazapine 45 MG Oral Tablet JEFF ([facility]) Clonazepam 1 MG Oral Tablet clonazepam 1 mg tablet clonazepam 1 mg ta blet completed clonazepam 1 MG Oral Tablet [place] ([facility]) Clonidine Hydrochloride 0.2 MG Oral Tablet clonidine H Cl 0.2 mg tablet clonidine HCl 0.2 mg tablet completed clonidine hydrochloride 0.2 MG Oral Tablet [place] ([facility]) Docusate Sodium 50 MG / sennosides, GROUP HOME 8.6 MG Oral Tablet sennosides 8.6 mg- docusate sodium 50 mg tablet Take 2 tablets by oral route at bedtime. sennosides 8.6 mg-docusate sodium 50 mg tablet Take 2 tablets by oral route at bedtime. 2 completed docusate sodiu m 50 MG / sennosides, GROUP HOME 8.6 MG Oral Tablet [place] ([facility]) benzonatate 200 MG Oral Capsule benzonatate 200 mg cap kenya benzonatate 200 mg capsule completed benzonatate 20 0 MG Oral Capsule [place] ([facility]) Ketoconazole 20 MG/ML Medicated Shampoo ketoconazole 2 % shampoo ketoconazole 2 % shampoo completed ketoconazole 20 MG/ML Medicated Shampoo [place] ([facility]) Propranolol Hydrochloride 20 MG Oral Tablet propranolo l 20 mg tablet propranolol 20 mg tablet completed propranolol hydrochloride 20 MG Oral Tablet [place] ([facility]) Isopropyl Alcohol 0.7 ML/ML Medicated Pad Alcohol Prep Pads Alco hol Prep Pads completed isopropyl alco hol 0.7 ML/ML Medicated Pad JEFF ([facility]) sennosides, GROUP HOME 8.6 MG Oral Tablet [Senna-Time] senna 8.6 mg tablet senna 8.6 mg tablet completed sennosi azam, GROUP HOME 8.6 MG Oral Tablet [Senna-Time] JEFF ([facility]) cefdinir 300 MG Oral Capsule cefdinir 300 mg capsule cefdinir 30 0 mg capsule completed cefdinir 300 M G Oral Capsule [place] ([facility]) cefdinir 300 MG Oral Capsule cefdinir 300 mg capsule cefdinir 30 0 mg capsule completed cefdinir 300 M G Oral Capsule JEFF ([facility]) ziprasidone 60 MG Oral Capsule ziprasidone 60 mg capsu le ziprasidone 60 mg capsule completed ziprasidone 60 MG Oral Capsule JEFF ([facility]) ziprasidone 60 MG Oral Capsule ziprasidone 60 mg capsu le ziprasidone 60 mg capsule completed ziprasidone 60 MG Oral Capsule [place] ([facility]) Cephalexin 500 MG Oral Capsule cephalexin 500 mg capsu le cephalexin 500 mg capsule completed cephalexin 500 MG Oral Capsule [place] ([facility]) Clonidine Hydrochloride 0.2 MG Oral Tablet clonidine H Cl 0.2 mg tablet clonidine HCl 0.2 mg tablet completed clonidine hydrochloride 0.2 MG Oral Tablet [place] ([facility]) Docusate Sodium 100 MG Oral Capsule [DOK] DOK 100 mg capsule DOK 100 mg capsule completed docusate sodiu m 100 MG Oral Capsule [DOK] [place] ([facility]) lamotrigine 100 MG Oral Tablet lamotrigi ne 100 mg tablet TAKE ONE TABLET BY MOUTH ONCE DAILY lamotrigine 100 mg tablet TAKE ONE TABLET BY MOUTH ONC E DAILY completed lamotrigine 10 0 MG Oral Tablet [place] ([facility]) Clonazepam 0.5 MG Oral Tablet clonazepam 0.5 mg tablet TAKE ONE TABLET BY MOUTH NEEDED FOR 3 DAYS THEN ONE HALF TABLET UNTIL FINISHED MAXIMUM DAILY DOSE ONE TABLET clonazepam 0.5 mg tablet TAKE ONE TABLET BY MOUTH NEEDED FOR 3 DAYS THEN ONE HALF TABLET UNTIL FINISHED MAXIMUM DAILY DOSE ONE TABLET completed clonazepam 0.5 MG Or al Tablet [place] ([facility]) sennosides 8.6 mg-docusate sodium 50 mg capsule Take 2 capsules by oral route at bedtime. [id number] 2 capsule(s) completed docusate sodium 50 MG / sennosides, GROUP HOME 8.6 MG Oral Capsule [place] ([facility]) Trazodone Hydrochloride 50 MG Oral Table t trazodone 50 mg tablet TAKE ONE TABLET BY MOUTH EVERY DAY AT BEDTIME trazodone 50 mg tablet TAKE ONE TABLET B Y MOUTH EVERY DAY AT BEDTIME completed trazodone hydrochloride 50 MG Oral Tablet [place] ([facility]) Mirtazapine 15 MG Oral Tablet mirtazapine 15 mg tablet derrick zapine 15 mg tablet completed mirtazapine 15 MG Oral Tablet JEFF ([facility]) Amitriptyline Hydrochloride 75 MG Oral Tablet amitript yline 75 mg tablet amitriptyline 75 mg tablet completed amitriptyline hydrochloride 75 MG Oral Tablet [place] ([facility]) Clonidine Hydrochloride 0.2 MG Oral Tablet clonidine H Cl 0.2 mg tablet clonidine HCl 0.2 mg tablet completed clonidine hydrochloride 0.2 MG Oral Tablet JEFF ([facility]) OneTouch Verio Flex Meter [id number] compl eted OneTouch Verio Flex Meter [place] ([facility]) 0.5 ML dulaglutide 1.5 MG/ML Auto-Inject or [Trulicity] Trulicity 0.75 mg/0.5 mL subcutaneous pen injector Trulicity 0.75 mg/0.5 mL subcutaneous pen injector completed 0.5 ML dulaglu tide 1.5 MG/ML Auto-Injector [Trulicity] [place] ([facility]) lamotrigine 25 MG Oral Tablet lamotrigine 25 mg tablet lamot rigine 25 mg tablet completed lamotrigine 25 MG Oral Tablet [place] ([facility]) OneTouch Delica Plus Lancet 33 gauge [id number] completed OneTouch Delica Plus Lancet 33 gauge [place] ([facility]) Prazosin 1 MG Oral Capsule prazosin 1 mg capsule prazosin 1 mg capsule completed prazosin 1 MG Oral Capsul e [place] ([facility]) Triamcinolone Acetonide 1 MG/ML Topical Cream triamcinolone acetonide 0.1 % topical cream triamcinolone acetonide 0.1 % topical cream completed triamcinolone acetonide 1 MG/ML Topical Cream [place] ([facility]) Clonazepam 1 MG Oral Tablet clonazepam 1 mg tablet clonazepam 1 mg ta blet completed clonazepam 1 MG Oral Tablet [place] ([facility]) Clindamycin 150 MG Oral Capsule clindamycin HCl 150 mg capsule clindamycin HCl 150 mg capsule completed clindam ycin 150 MG Oral Capsule [place] ([facility]) Simvastatin 10 MG Oral Tablet simvastati n 10 mg tablet TAKE ONE TABLET BY MOUTH EVERY DAY simvastatin 10 mg tablet TAKE ONE TABLET BY MOUTH EVERY DAY completed simvastatin 10 MG Oral Table t JEFF ([facility]) benzonatate 200 MG Oral Capsule benzonatate 200 mg cap kenya benzonatate 200 mg capsule completed benzonatate 20 0 MG Oral Capsule [place] ([facility]) Famotidine 20 MG Oral Tablet famotidine 20 mg tablet famotidine 20 mg tablet completed famotidine 20 MG Oral Tablet JEFF ([facility]) benzonatate 200 MG Oral Capsule benzonatate 200 mg cap k[place] benzonatate 200 mg capsule completed benzonatate 20 0 MG Oral Capsule [place] ([facility]) buspirone hydrochloride 10 MG Oral Tablet buspirone 10 mg tablet buspirone 10 mg tablet completed buspirone hydr ochloride 10 MG Oral Tablet [place] ([facility]) Simvastatin 10 MG Oral Tablet simvastati n 10 mg tablet TAKE ONE TABLET BY MOUTH EVERY DAY simvastatin 10 mg tablet TAKE ONE TABLET BY MOUTH EVERY DAY completed simvastatin 10 MG Oral Table t [place] ([facility]) OneTouch Verio Flex Meter [id number] compl eted OneTouch Verio Flex Meter [place] ([facility]) 0.5 ML dulaglutide 1.5 MG/ML Auto-Inject or [Trulicity] Trulicity 0.75 mg/0.5 mL subcutaneous pen injector Trulicity 0.75 mg/0.5 mL subcutaneous pen injector completed 0.5 ML dulaglu tide 1.5 MG/ML Auto-Injector [Trulicity] [place] ([facility]) Prazosin 1 MG Oral Capsule prazosin 1 mg capsule prazosin 1 mg capsule completed prazosin 1 MG Oral Capsul e [place] ([facility]) Insurance Providers Payer name Policy type / Coverage type Policy ID Covered democrat ID Covered democrat's relationship to talamantes Policy [place] Plan Information [facility] [employer] COMM[employer] PLAN [id number] SELF [id number] [employer] DEVEN [id number] SELF [id number] HMO BLUE [id number] SP [id number] BLUE CROSS VANESSA PLAN [id number] SP [id number] [facility] MCDO [id number] SP [id number] Hmo Blue Option/Medicaid Health Maintenance Organization (HMO) V [id number] Self [id number] Hmo Blue Option/Medicaid Health Maintenance Organization (HMO) V [id number] Self [id number] Hmo Blue Option/Medicaid Health Maintenance Organization (HMO) V [id number] Self [id number] [facility] Medigap Part B [id number] Self [id number] Medicaid S [id number] S [id number] Managed Care BCBS O [id number] S [id number] Medicaid S [id number] S [id number] Medicaid S [id number] S [id number] [facility] Essential Plan P [id number] S [id number] Managed Care - Community Plan [facility] P [id number] S [id number] Medicaid S [id number] S [id number] Managed Care - Community Plan [facility] P [id number] S [id number] Medicaid S [id number] S [id number] Managed Care - Community Plan [facility] P [id number] S [id number] Managed Care - [facility] Community Plan P [id number] S [id number] Medicaid S [id number] S [id number] Managed Care - [facility] Community Plan P [id number] S [id number] Medicaid S [id number] S [id number] BCBS Federal O [id number] S [id number] [facility]) P UNAVAILABLE [id number] S UNAVAILABLE EXCELLUS BCBS P [id number] S [id number] Self Pay O [id number] S [id number] [facility] [id number] SP [id number] UNHC COMMUNITY PLAN MCDO [id number] SP [id number] [facility]([place]) O [id number] S [id number] [facility] Health Maintenance Organization (HMO) [id number] Self [id number] MEDICAID [id number] SP [id number] Managed Care - Community Plan [facility] P [id number] S [id number] [facility] Health Maintenance Organization (HMO) [id number] Self [id number] [facility] Health Maintenance Organization ([facility]) [id number] Self [id number] MEDICAID [id number] SP [id number] UNHC COMMUNITY PLAN MCDO [id number] SP [id number] [facility] Comm Plan Medicaid F [id number] [id number] [id number] Managed Care - Community Plan [facility] P [id number] S [id number] UNHC AMERICHOICE XIX -HMO [id number] [id number] [facility]([place]) O [id number] S [id number] MEDICAID [id number] SP [id number] [facility] HMO/[facility] FAMILY NO CO PAY [id number] P [id number] SELFPAY P HMO BLUE/MEDICAID [id number] P [id number] MEDICAID [id number] SP [id number] UN COMMUNITY PLAN [facility] [id number] SP [id number] Problems, Conditions, and Diagnoses Code Display Name Description Problem Type Effective Dates Data Source(s) F17.200 Nicotine dependence, unspecified, uncomp licated Tobacco Use Disorder, Moderate Condition 07/02/2021 12:00:00 AM EDT [facility] ([facility]) 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 Condition 07/02/2021 12:00:00 AM EDT [facility] ([facility]) 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 Somatic Symptom D isorder Condition 07/02/2021 12:00:00 AM EDT [facility] ([facility]) F31.63 Bipolar disorder, current ep isode mixed, severe, without psychotic features Bipolar disord, crnt epsd mixed, severe, w/o psych features Condition 07/02/2021 12:00:00 AM EDT [facility] ([facility]) [id number] Primary erectile dysfunction Primary Erectile Dysfunct ion Problem 06/12/2021 12:00:00 AM EDT JEFF ([facility]) [id number] Primary erectile dysfunction Primary Erectile Dysfunct ion Problem 06/12/2021 12:00:00 AM EDT JEFF ([facility]) 02647129 Acute otitis externa Acute Otitis Externa Problem 05/02/2021 12:00:00 AM EDT JEFF ([facility]) 47320468 Acute otitis externa Acute Otitis Externa Problem 05/02/2021 12:00:00 AM EDT JEFF ([facility]) 41236683 Acute otitis externa Acute Otitis Externa Problem 05/02/2021 12:00:00 AM EDT JEFF ([facility]) 48366065 Chest pain Chest Pain Problem 03/22/2021 12:00:00 AM ED T JEFF ([facility]) 940817351 Tobacco user Tobacco User Problem 03/22/2021 12:00:00 A M EDT JEFF ([facility]) 62932692 Chest pain Chest Pain Problem 03/22/2021 12:00:00 AM ED T JEFF ([facility]) 954315344 Tobacco user Tobacco User Problem 03/22/2021 12:00:00 A M EDT JEFF ([facility]) 29791828 Chest pain Chest Pain Problem 03/22/2021 12:00:00 AM ED T JEFF ([facility]) 265012349 Tobacco user Tobacco User Problem 03/22/2021 12:00:00 A M EDT JE[facility] ([facility]) 98758050 Chest pain Chest Pain Problem 03/22/2021 12:00:00 AM ED T JEFF ([facility]) 469442626 Tobacco user Tobacco User Problem 03/22/2021 12:00:00 A M EDT JEFF ([facility]) [id number] Chest pain Chest Pain Problem 03/22/2021 12:00:00 AM ED T JEFF ([facility]) 275433867 Tobacco user Tobacco User Problem 03/22/2021 12:00:00 A M EDT JEFF ([facility]) 06165056 Chest pain Chest Pain Problem 03/22/2021 12:00:00 AM ED T JEFF ([facility]) 334697144 Tobacco user Tobacco User Problem 03/22/2021 12:00:00 A M EDT JEFF ([facility]) F17.200 Nicotine dependence, unspecified, uncomp licated Tobacco Use Disorder, Moderate Condition 12/07/2020 12:00:00 AM EST [facility] ([facility]) 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 Condition 12/07/2020 12:00:00 AM EST [facility] ([facility]) E11.9 Type 2 diabetes mellitus Type 2 [...] 12:00:00 AM EST [facility] ([facility] [id number] Bilateral earache Bilateral Earache Problem 10/03 12:00:00 AM EST JEFF ([facility]) 423612379 Bilateral earache Bilateral Earache Problem 10/03 12:00:00 AM EST JEFF ([facility]) 457390266 Bilateral earache Bilateral Earache Problem 10/03 12:00:00 AM EST JEFF ([facility]) 210334967 Bilateral earache Bilateral Earache Problem 10/03 12:00:00 AM EST JEFF ([facility]) 767122182 Bilateral earache Bilateral Earache Problem 10/03 12:00:00 AM EST JEFF ([facility]) 758887349 Bilateral earache Bilateral Earache Problem 10/03 12:00:00 AM EST JEFF ([facility]) 806833487 Bilateral earache Bilateral Earache Problem 10/03 12:00:00 AM EST JEFF ([facility]) 830882677 Bilateral earache Bilateral Earache Problem 10/03 12:00:00 AM EST JEFF ([facility]) 393518383 Bilateral earache Bilateral Earache Problem 10/03 12:00:00 AM EST JEFF ([facility]) 618755500 Bilateral earache Bilateral Earache Problem 10/03 12:00:00 AM EST JEFF ([facility]) 769565379 Bilateral earache Bilateral Earache Problem 10/03 12:00:00 AM EST JEFF ([facility]) 975991812 Bilateral earache Bilateral Earache Problem 10/03 12:00:00 AM EST JEFF ([facility]) 894907215 Bilateral earache Bilateral Earache Problem 10/03 12:00:00 AM EST JEFF ([facility]) [id number] Bilateral earache Bilateral Earache Problem 10/03 12:00:00 AM EST JEFF ([facility]) [id number] Paronychia of toe Paronychia of Toe Problem 09/01 12:00:00 AM EST JEFF ([facility]) [id number] Paronychia of toe Paronychia of Toe Problem 09/01 12:00:00 AM EST JEFF ([facility]) [id number] Paronychia of toe Paronychia of Toe Problem 09/01 12:00:00 AM EST JEFF ([facility]) [id number] Paronychia of toe Paronychia of Toe Problem 09/01 12:00:00 AM EST JEFF ([facility]) [id number] Paronychia of toe Paronychia of Toe Problem 09/01 12:00:00 AM EST JEFF ([facility]) [id number] Paronychia of toe Paronychia of Toe Problem 09/01 12:00:00 AM EST JEFF ([facility]) [id number] Paronychia of toe Paronychia of Toe Problem 09/01 12:00:00 AM EST JEFF ([facility]) [id number] Paronychia of toe Paronychia of Toe Problem 09/01 12:00:00 AM EST JEFF ([facility]) [id number] Paronychia of toe Paronychia of Toe Problem 09/01 12:00:00 AM EST JEFF ([facility]) [id number] Paronychia of toe Paronychia of Toe Problem 09/01 12:00:00 AM EST JEFF ([facility]) [id number] Paronychia of toe Paronychia of Toe Problem 09/01 12:00:00 AM EST JEFF ([facility]) [id number] Paronychia of toe Paronychia of Toe Problem 09/01 12:00:00 AM EST JEFF ([facility]) [id number] Paronychia of toe Paronychia of Toe Problem 09/01 12:00:00 AM EST JEFF ([facility]) [id number] Paronychia of toe Paronychia of Toe Problem 09/01 12:00:00 AM EST JEFF ([facility]) [id number] Paronychia of toe Paronychia of Toe Problem 09/01 12:00:00 AM EST JEFF ([facility]) F17.219 Nicotine dependence, cigaret mary, with unspecified nicotine-induced disorders Nicotine dependence, cigarettes, wunsp disorders Condition 08/17/2020 12:00:00 AM EST [facility] ([facility]) 018854569 Type 2 diabetes mellitus without complic ation Type 2 Diabetes Mellitus without Complication Problem 08/10/2020 12:00:00 AM EDT JEFF ([facility]) [id number] Type 2 diabetes mellitus without complic ation Type 2 Diabetes Mellitus without Complication Problem 08/10/2020 12:00:00 AM EDT JEFF ([facility]) 286351073 Type 2 diabetes mellitus without complic ation Type 2 Diabetes Mellitus without Complication Problem 08/10/2020 12:00:00 AM EDT JEFF ([facility]) 958198309 Type 2 diabetes mellitus without complic ation Type 2 Diabetes Mellitus without Complication Problem 08/10/2020 12:00:00 AM EDT JEFF ([facility]) 819012189 Type 2 diabetes mellitus without complic ation Type 2 Diabetes Mellitus without Complication Problem 08/10/2020 12:00:00 AM EDT JEFF ([facility]) 357111536 Type 2 diabetes mellitus without complic ation Type 2 Diabetes Mellitus without Complication Problem 08/10/2020 12:00:00 AM EDT JEFF ([facility]) [id number] Type 2 diabetes mellitus without complic ation Type 2 Diabetes Mellitus without Complication Problem 08/10/2020 12:00:00 AM EDT JEFF ([facility]) [id number] Type 2 diabetes mellitus without complic ation Type 2 Diabetes Mellitus without Complication Problem 08/10/2020 12:00:00 AM EDT JEFF ([facility]) 739402549 Type 2 diabetes mellitus without complic ation Type 2 Diabetes Mellitus without Complication Problem 08/10/2020 12:00:00 AM EDT JEFF ([facility]) [id number] Type 2 diabetes mellitus without complic ation Type 2 Diabetes Mellitus without Complication Problem 08/10/2020 12:00:00 AM EDT JEFF ([facility]) 768651005 Type 2 diabetes mellitus without complic ation Type 2 Diabetes Mellitus without Complication Problem 08/10/2020 12:00:00 AM EDT JEFF ([facility]) 367970411 Type 2 diabetes mellitus without complic ation Type 2 Diabetes Mellitus without Complication Problem 08/10/2020 12:00:00 AM EDT JEFF ([facility]) 833746251 Type 2 diabetes mellitus without complic ation Type 2 Diabetes Mellitus without Complication Problem 08/10/2020 12:00:00 AM EDT JEFF ([facility]) 450049160 Type 2 diabetes mellitus without complic ation Type 2 Diabetes Mellitus without Complication Problem 08/10/2020 12:00:00 AM EDT JEFF ([facility]) 843571326 Type 2 diabetes mellitus without complic ation Type 2 Diabetes Mellitus without Complication Problem 08/10/2020 12:00:00 AM EDT JEFF ([facility]) [id number] Type 2 diabetes mellitus without complic ation Type 2 Diabetes Mellitus without Complication Problem 08/10/2020 12:00:00 AM EDT JEFF ([facility]) [id number] Type 2 diabetes mellitus without complic ation Type 2 Diabetes Mellitus without Complication Problem 08/10/2020 12:00:00 AM EDT JEFF ([facility]) 266123791 Fitting procedure Fitting Procedure Problem 07/27 05:54:54 PM EDT JEFF ([facility]) [id number] Fitting procedure Fitting Procedure Problem 07/27 05:54:54 PM EDT JEFF ([facility]) [id number] Fitting procedure Fitting Procedure Problem 07/27 05:54:54 PM EDT JEFF ([facility]) [id number] Fitting procedure Fitting Procedure Problem 07/27 05:54:54 PM EDT JEFF ([facility]) 900721636 Fitting procedure Fitting Procedure Problem 07/27 05:54:54 PM EDT JEFF ([facility]) [id number] Fitting procedure Fitting Procedure Problem 07/27 05:54:54 PM EDT JEFF ([facility]) 585999544 Fitting procedure Fitting Procedure Problem 07/27 05:54:54 PM EDT JEFF ([facility]) 424070402 Fitting procedure Fitting Procedure Problem 07/27 05:54:54 PM EDT JEFF ([facility]) 233894758 Fitting procedure Fitting Procedure Problem 07/27 05:54:54 PM EDT JEFF ([facility]) 470793787 Fitting procedure Fitting Procedure Problem 07/27 05:54:54 PM EDT JEFF ([facility]) [id number] Fitting procedure Fitting Procedure Problem 07/27 05:54:54 PM EDT JEFF ([facility]) [id number] Fitting procedure Fitting Procedure Problem 07/27 05:54:54 PM EDT JEFF ([facility]) [id number] Fitting procedure Fitting Procedure Problem 07/27 05:54:54 PM EDT JEFF ([facility]) 703523087 Fitting procedure Fitting Procedure Problem 07/27 05:54:54 PM EDT JEFF ([facility]) [id number] Fitting procedure Fitting Procedure Problem 07/27 05:54:54 PM EDT JEFF ([facility]) [id number] Fitting procedure Fitting Procedure Problem 07/27 05:54:54 PM EDT JEFF ([facility]) 689601478 Fitting procedure Fitting Procedure Problem 07/27 05:54:54 PM EDT JEFF ([facility]) [id number] Finding of esophagus Finding of Esophagus Problem 07/27/2020 05:54:53 PM EDT JEFF ([facility]) 846973750 SNOMED CT Concept SNOMED CT Concept Problem 07/27 05:54:53 PM EDT JEFF ([facility]) 652209747 Asthma Asthma Problem 07/27/2020 05:54:53 PM ED T JEFF ([facility]) [id number] Depressive disorder Depressive Disorder Problem 1 05:54:53 PM EDT JEFF ([facility]) [id number] Viral hepatitis C Viral Hepatitis C Problem 07/27/2020 05:54:53 PM EDT JEFF ([facility]) [id number] Finding of esophagus Finding of Esophagus Problem 07/27/2020 05:54:53 PM EDT JEFF ([facility]) [id number] SNOMED CT Concept SNOMED CT Concept Problem 07/27 05:54:53 PM EDT JEFF ([facility]) [id number] Asthma Asthma Problem 07/27/2020 05:54:53 PM ED T JEFF ([facility]) [id number] Depressive disorder Depressive Disorder Problem 1 05:54:53 PM EDT JEFF ([facility]) [id number] Viral hepatitis C Viral Hepatitis C Problem 07/27/2020 05:54:53 PM EDT JEFF ([facility]) 956528651 Finding of esophagus Finding of Esophagus Problem 07/27/2020 05:54:53 PM EDT JEFF ([facility]) [id number] SNOMED CT Concept SNOMED CT Concept Problem 07/27 05:54:53 PM EDT JEFF ([facility]) 376552990 Asthma Asthma Problem 07/27/2020 05:54:53 PM ED T JEFF ([facility]) [id number] Depressive disorder Depressive Disorder Problem 1 05:54:53 PM EDT JEFF ([facility]) 76151442 Viral hepatitis C Viral Hepatitis C Problem 07/27/2020 05:54:53 PM EDT JEFF ([facility]) 375373465 Finding of esophagus Finding of Esophagus Problem 07/27/2020 05:54:53 PM EDT JEFF ([facility]) 465789128 SNOMED CT Concept SNOMED CT Concept Problem 07/27 05:54:53 PM EDT JEFF ([facility]) 246523036 Asthma Asthma Problem 07/27/2020 05:54:53 PM ED T JEFF ([facility]) [id number] Depressive disorder Depressive Disorder Problem 1 05:54:53 PM EDT JEFF ([facility]) 04892640 Viral hepatitis C Viral Hepatitis C Problem 07/27/2020 05:54:53 PM EDT JEFF ([facility]) 647758166 Finding of esophagus Finding of Esophagus Problem 07/27/2020 05:54:53 PM EDT JEFF ([facility]) [id number] SNOMED CT Concept SNOMED CT Concept Problem 07/27 05:54:53 PM EDT JEFF ([facility]) 394515539 Asthma Asthma Problem 07/27/2020 05:54:53 PM ED T JEFF ([facility]) 42792247 Depressive disorder Depressive Disorder Problem 1 05:54:53 PM EDT JEFF ([facility]) [id number] Viral hepatitis C Viral Hepatitis C Problem 07/27/2020 05:54:53 PM EDT JEFF ([facility]) 113652524 Finding of esophagus Finding of Esophagus Problem 07/27/2020 05:54:53 PM EDT JEFF ([facility]) [id number] SNOMED CT Concept SNOMED CT Concept Problem 07/27 05:54:53 PM EDT JEFF ([facility]) 896310364 Asthma Asthma Problem 07/27/2020 05:54:53 PM ED T JEFF ([facility]) 60816252 Depressive disorder Depressive Disorder Problem 1 05:54:53 PM EDT JEFF ([facility]) 65554798 Viral hepatitis C Viral Hepatitis C Problem 07/27/2020 05:54:53 PM EDT JEFF ([facility]) 767755803 Finding of esophagus Finding of Esophagus Problem 07/27/2020 05:54:53 PM EDT JEFF ([facility]) 389821473 SNOMED CT Concept SNOMED CT Concept Problem 07/27 05:54:53 PM EDT JEFF ([facility]) 905190193 Asthma Asthma Problem 07/27/2020 05:54:53 PM ED T JEFF ([facility]) 19391457 Depressive disorder Depressive Disorder Problem 1 05:54:53 PM EDT JEFF ([facility]) 44613616 Viral hepatitis C Viral Hepatitis C Problem 07/27/2020 05:54:53 PM EDT JEFF ([facility]) 157841597 Finding of esophagus Finding of Esophagus Problem 07/27/2020 05:54:53 PM EDT JEFF ([facility]) 172087288 SNOMED CT Concept SNOMED CT Concept Problem 07/27 05:54:53 PM EDT JEFF ([facility]) 388026274 Asthma Asthma Problem 07/27/2020 05:54:53 PM ED T JEFF ([facility]) [id number] Depressive disorder Depressive Disorder Problem 1 05:54:53 PM EDT JEFF ([facility]) [id number] Viral hepatitis C Viral Hepatitis C Problem 07/27/2020 05:54:53 PM EDT JEFF ([facility]) 294685138 Finding of esophagus Finding of Esophagus Problem 07/27/2020 05:54:53 PM EDT JEFF ([facility]) 843449907 SNOMED CT Concept SNOMED CT Concept Problem 07/27 05:54:53 PM EDT JEFF ([facility]) 736864222 Asthma Asthma Problem 07/27/2020 05:54:53 PM ED T JEFF ([facility]) [id number] Depressive disorder Depressive Disorder Problem 1 05:54:53 PM EDT JEFF ([facility]) 15920525 Viral hepatitis C Viral Hepatitis C Problem 07/27/2020 05:54:53 PM EDT JEFF ([facility]) 747778520 Finding of esophagus Finding of Esophagus Problem 07/27/2020 05:54:53 PM EDT JEFF ([facility]) 403151639 SNOMED CT Concept SNOMED CT Concept Problem 07/27 05:54:53 PM EDT JEFF ([facility]) 341342112 Asthma Asthma Problem 07/27/2020 05:54:53 PM ED T JEFF ([facility]) 07422786 Depressive disorder Depressive Disorder Problem 1 05:54:53 PM EDT JEFF ([facility]) 94012389 Viral hepatitis C Viral Hepatitis C Problem 07/27/2020 05:54:53 PM EDT JEFF ([facility]) 895863453 Finding of esophagus Finding of Esophagus Problem 07/27/2020 05:54:53 PM EDT JEFF ([facility]) [id number] SNOMED CT Concept SNOMED CT Concept Problem 07/27 05:54:53 PM EDT JEFF ([facility]) 857398745 Asthma Asthma Problem 07/27/2020 05:54:53 PM ED T JEFF ([facility]) [id number] Depressive disorder Depressive Disorder Problem 1 05:54:53 PM EDT JEFF ([facility]) 50699809 Viral hepatitis C Viral Hepatitis C Problem 07/27/2020 05:54:53 PM EDT JEFF ([facility]) 983843271 Finding of esophagus Finding of Esophagus Problem 07/27/2020 05:54:53 PM EDT JEFF ([facility]) 788216386 SNOMED CT Concept SNOMED CT Concept Problem 07/27 05:54:53 PM EDT JEFF ([facility]) 817495532 Asthma Asthma Problem 07/27/2020 05:54:53 PM ED T JEFF ([facility]) [id number] Depressive disorder Depressive Disorder Problem 1 05:54:53 PM EDT JEFF ([facility]) 78744759 Viral hepatitis C Viral Hepatitis C Problem 07/27/2020 05:54:53 PM EDT JEFF ([facility]) 601509736 Finding of esophagus Finding of Esophagus Problem 07/27/2020 05:54:53 PM EDT JEFF ([facility]) 276927748 SNOMED CT Concept SNOMED CT Concept Problem 07/27 05:54:53 PM EDT JEFF ([facility]) 508381269 Asthma Asthma Problem 07/27/2020 05:54:53 PM ED T JEFF ([facility]) 09750758 Depressive disorder Depressive Disorder Problem 1 05:54:53 PM EDT JEFF ([facility]) 75384606 Viral hepatitis C Viral Hepatitis C Problem 07/27/2020 05:54:53 PM EDT JEFF ([facility]) 864833241 Finding of esophagus Finding of Esophagus Problem 07/27/2020 05:54:53 PM EDT JEFF ([facility]) 995933812 SNOMED CT Concept SNOMED CT Concept Problem 07/27 05:54:53 PM EDT JEFF ([facility]) 267576060 Asthma Asthma Problem 07/27/2020 05:54:53 PM ED T JEFF ([facility]) 80736125 Depressive disorder Depressive Disorder Problem 1 05:54:53 PM EDT JEFF ([facility]) 13263172 Viral hepatitis C Viral Hepatitis C Problem 07/27/2020 05:54:53 PM EDT JEFF ([facility]) 26228447 Viral hepatitis C Viral Hepatitis C Problem 07/27/2020 05:54:53 PM EDT JEFF ([facility]) 351984583 Finding of esophagus Finding of Esophagus Problem 07/27/2020 05:54:53 PM EDT JEFF ([facility]) 625039247 SNOMED CT Concept SNOMED CT Concept Problem 07/27 05:54:53 PM EDT JEFF ([facility]) 712326286 Asthma Asthma Problem 07/27/2020 05:54:53 PM ED T JEFF ([facility]) 53839075 Depressive disorder Depressive Disorder Problem 1 05:54:53 PM EDT JEFF ([facility]) 31421068 Viral hepatitis C Viral Hepatitis C Problem 07/27/2020 05:54:53 PM EDT JEFF ([facility]) 905905146 Finding of esophagus Finding of Esophagus Problem 07/27/2020 05:54:53 PM EDT JEFF ([facility]) 346259288 SNOMED CT Concept SNOMED CT Concept Problem 07/27 05:54:53 PM EDT JEFF ([facility]) 567067905 Asthma Asthma Problem 07/27/2020 05:54:53 PM ED T JEFF ([facility]) 80948955 Depressive disorder Depressive Disorder Problem 1 05:54:53 PM EDT JEFF ([facility]) [id number] Viral hepatitis C Viral Hepatitis C Problem 07/27/2020 05:54:53 PM EDT JEFF ([facility]) [id number] Finding of esophagus Finding of Esophagus Problem 07/27/2020 05:54:53 PM EDT JEFF ([facility]) [id number] SNOMED CT Concept SNOMED CT Concept Problem 07/27 05:54:53 PM EDT JEFF ([facility]) [id number] Asthma Asthma Problem 07/27/2020 05:54:53 PM ED T JEFF ([facility]) [id number] Depressive disorder Depressive Disorder Problem 1 05:54:53 PM EDT JEFF ([facility]) [id number] Clinical finding Clinical Finding Problem 019 12:00:00 AM EST - 03/02/2021 12:00:00 AM EDT JEFF ([facility]) [id number] Clinical finding Clinical Finding Problem 019 12:00:00 AM EST - 03/02/2021 12:00:00 AM EDT JEFF ([facility]) [id number] Clinical finding Clinical Finding Problem 019 12:00:00 AM EST - 03/02/2021 12:00:00 AM EDT JEFF ([facility]) [id number] Clinical finding Clinical Finding Problem 019 12:00:00 AM EST - 03/02/2021 12:00:00 AM EDT JEFF ([facility]) [id number] Clinical finding Clinical Finding Problem 019 12:00:00 AM EST - 03/02/2021 12:00:00 AM EDT JEFF ([facility]) [id number] Clinical finding Clinical Finding Problem 019 12:00:00 AM EST - 03/02/2021 12:00:00 AM EDT JEFF ([facility]) [id number] Clinical finding Clinical Finding Problem 019 12:00:00 AM EST - 03/02/2021 12:00:00 AM EDT JEFF ([facility]) [id number] Acute maxillary sinusitis Acute Maxillary Sinusitis Pr oblem 04/28/2018 12:00:00 AM EDT - 03/02/2021 12:00:00 AM EDT JEFF ([facility]) [id number] Acute maxillary sinusitis Acute Maxillary Sinusitis Pr oblem 04/28/2018 12:00:00 AM EDT - 03/02/2021 12:00:00 AM EDT JEFF ([facility]) [id number] Acute maxillary sinusitis Acute Maxillary Sinusitis Pr oblem 04/28/2018 12:00:00 AM EDT - 03/02/2021 12:00:00 AM EDT JEFF ([facility]) [id number] Acute maxillary sinusitis Acute Maxillary Sinusitis Pr oblem 04/28/2018 12:00:00 AM EDT - 03/02/2021 12:00:00 AM EDT JEFF ([facility]) [id number] Acute maxillary sinusitis Acute Maxillary Sinusitis Pr oblem 04/28/2018 12:00:00 AM EDT - 03/02/2021 12:00:00 AM EDT JEFF ([facility]) [id number] Acute maxillary sinusitis Acute Maxillary Sinusitis Pr oblem 04/28/2018 12:00:00 AM EDT - 03/02/2021 12:00:00 AM EDT JEFF ([facility]) [id number] Acute maxillary sinusitis Acute Maxillary Sinusitis Pr oblem 04/28/2018 12:00:00 AM EDT - 03/02/2021 12:00:00 AM EDT JEFF ([facility]) [id number] Abdominal pain Abdominal Pain Problem 06/15/2015 12:00:00 AM EDT - 03/02/2021 12:00:00 AM EDT JEFF ([facility]) [id number] Abdominal pain Abdominal Pain Problem 06/15/2015 12:00:00 AM EDT - 03/02/2021 12:00:00 AM EDT JEFF ([facility]) [id number] Abdominal pain Abdominal Pain Problem 06/15/2015 12:00:00 AM EDT - 03/02/2021 12:00:00 AM EDT JEFF ([facility]) [id number] Abdominal pain Abdominal Pain Problem 06/15/2015 12:00:00 AM EDT - 03/02/2021 12:00:00 AM EDT JEFF ([facility]) [id number] Abdominal pain Abdominal Pain Problem 06/15/2015 12:00:00 AM EDT - 03/02/2021 12:00:00 AM EDT JEFF ([facility]) [id number] Abdominal pain Abdominal Pain Problem 06/15/2015 12:00:00 AM EDT - 03/02/2021 12:00:00 AM EDT JEFF ([facility]) [id number] Abdominal pain Abdominal Pain Problem 06/15/2015 12:00:00 AM EDT - 03/02/2021 12:00:00 AM EDT JEFF ([facility]) [id number] Pain Pain Problem 09/14/2012 12:0 0:00 AM EST - 03/02/2021 12:00:00 AM EDT JEFF ([facility]) [id number] Clinical finding Clinical Finding Problem 012 12:00:00 AM EST - 03/02/2021 12:00:00 AM EDT JEFF ([facility]) [id number] Chronic constipation Chronic Constipation Problem 09/14/2012 12:00:00 AM EST - 03/02/2021 12:00:00 AM EDT JEFF ([facility]) [id number] Clinical finding Clinical Finding Problem 012 12:00:00 AM EST - 03/02/2021 12:00:00 AM EDT JEFF ([facility]) [id number] Chronic constipation Chronic Constipation Problem 09/14/2012 12:00:00 AM EST - 03/02/2021 12:00:00 AM EDT JEFF ([facility]) [id number] Clinical finding Clinical Finding Problem 012 12:00:00 AM EST - 03/02/2021 12:00:00 AM EDT JEFF ([facility]) [id number] Chronic constipation Chronic Constipation Problem 09/14/2012 12:00:00 AM EST - 03/02/2021 12:00:00 AM EDT JEFF ([facility]) [id number] Chronic constipation Chronic Constipation Problem 09/14/2012 12:00:00 AM EST - 03/02/2021 12:00:00 AM EDT JEFF ([facility]) [id number] Clinical finding Clinical Finding Problem 012 12:00:00 AM EST - 03/02/2021 12:00:00 AM EDT JEFF ([facility]) [id number] Chronic constipation Chronic Constipation Problem 09/14/2012 12:00:00 AM EST - 03/02/2021 12:00:00 AM EDT JEFF ([facility]) [id number] Clinical finding Clinical Finding Problem 012 12:00:00 AM EST - 03/02/2021 12:00:00 AM EDT JEFF ([facility]) [id number] Chronic constipation Chronic Constipation Problem 09/14/2012 12:00:00 AM EST - 03/02/2021 12:00:00 AM EDT JEFF ([facility]) [id number] Clinical finding Clinical Finding Problem 012 12:00:00 AM EST - 03/02/2021 12:00:00 AM EDT JEFF ([facility]) [id number] Chronic constipation Chronic Constipation Problem 09/14/2012 12:00:00 AM EST - 03/02/2021 12:00:00 AM EDT JEFF ([facility]) Surgeries/Procedures Procedure Description Date Indications Data Source(s) Extended Individual Psychotherapy - 45 min 07/02/2021 12:00:00 AM EDT - 07/02/2021 12:00:00 AM EDT [facility] ([facility]) Extended Individual Psychotherapy - 45 min 12:00:00 AM EDT [facility] ([facility]) TEMPMHCTelemed 30" Psychotherapy 021 12:00:00 AM EDT - 06/14/2021 12:00:00 AM EDT [facility] ([facility]) TEMPMHCTelemed 30" Psychotherapy 06/14/2021 12:00:00 A M EDT [facility] ([facility]) Brief Individual Psychotherapy - 30 min 05/31/2021 12:00:00 AM EDT - 05/31/2021 12:00:00 AM EDT [facility] ([facility]) Brief Individual Psychotherapy - 30 min 05/31/2021 12: 00:00 AM EDT [facility] ([facility]) MHCTelemed E/M Lvl 5--Est pt 05/30/2021 12:00:00 AM EDT - 05/30/2021 12:00:00 AM EDT [facility] ([facility]) MHCTelemed E/M Lvl 5--Est pt 05/30/2021 12:00:00 AM ED T [facility] ([facility]) [id number]"Psychotherapy 12:00:00 AM EDT - 05/01/2021 12:00:00 AM EDT [facility] ([facility]) [id number]"Psychotherapy 05/01/2021 12:00:00 AM EDT [facility] ([facility]) Extended Individual Psychotherapy - 45 min 03/26/2021 12:00:00 AM EDT - 03/26/2021 12:00:00 AM EDT [facility] ([facility]) Extended Individual Psychotherapy - 45 min 12:00:00 AM EDT [facility] ([facility]) INCISION & DRAINAGE ABSCESS SIMPLE/SINGLE 03/06/2021 1 2:00:00 AM EDT MEDENT ([facility] OFFICE OUTPATIENT VISIT 15 MINUTES 03/06/2021 12:00:00 AM EDT MEDENT ([facility] Extended Individual Psychotherapy - 45 min 02/26/2021 12:00:00 AM EDT - 02/26/2021 12:00:00 AM EDT [facility] ([facility]) Extended Individual Psychotherapy - 45 min 12:00:00 AM EDT [facility] ([facility]) Brief Individual Psychotherapy - 30 min 02/07/2021 12:00:00 AM EDT - 02/07/2021 12:00:00 AM EDT [facility] ([facility]) Brief Individual Psychotherapy - 30 min 02/07/2021 12: 00:00 AM EDT [facility] ([facility]) [id number]"Psychotherapy 12:00:00 AM EDT - 01/18/2021 12:00:00 AM EDT [facility] ([facility]) [id number]"Psychotherapy 01/18/2021 12:00:00 AM EDT [facility] ([facility]) Extended Individual Psychotherapy - 45 min 12/28/2020 12:00:00 AM EDT - 12/28/2020 12:00:00 AM EDT [facility] ([facility]) Extended Individual Psychotherapy - 45 min 12:00:00 AM EDT [facility] ([facility]) MHC Telemed E/M Lvl 3--Est pt 12/11/2020 12:00:00 AM EST - 12/11/2020 12:00:00 AM EST [facility] ([facility]) Telemed A/O 30" 12/11/2020 12:00:00 AM EST [facility] ([facility]) MHC Telemed E/M Lvl 3--Est pt 12/11/2020 12:00:[address] [facility] ([facility]) Extended Individual Psychotherapy - 45 min 12/07/2020 12:00:00 AM EST - 12/07/2020 12:00:00 AM EST [facility] ([facility]) Extended Individual Psychotherapy - 45 min 12:00:00 AM EST [facility] ([facility]) TEMPMHCTelemed 30" Psychotherapy 021 12:00:00 AM EST - 11/07/2020 12:00:00 AM EST [facility] ([facility]) TEMPMHCTelemed 30" Psychotherapy 11/07/2020 12:00:00 A M EST [facility] ([facility]) OFFICE OUTPATIENT VISIT 15 MINUTES 10/25 12:00:00 AM EST - 10/25/2020 12:00:00 AM EST [facility] ([facility]) Psychotherapy ADD ON - 30 Minutes 10/25/2020 12:00:00 AM EST [facility] ([facility]) OFFICE OUTPATIENT VISIT 15 MINUTES 10/25/2020 12:00:00 AM EST [facility] ([facility]) Extended Individual Psychotherapy - 45 min 10/20/2020 12:00:00 AM EST - 10/20/2020 12:00:00 AM EST [facility] ([facility]) Extended Individual Psychotherapy - 45 min 1 12:00:00 AM EST [facility] ([facility]) Extended Individual Psychotherapy - 45 min 09/28/2020 12:00:00 AM EST - 09/28/2020 12:00:00 AM EST [facility] ([facility]) Extended Individual Psychotherapy - 45 min 0 12:00:00 AM EST [facility] ([facility]) INCISION & DRAINAGE ABSCESS SIMPLE/SINGLE 09/25/2020 1 2:00:00 AM EST MEDENT ([facility] INCISION & DRAINAGE ABSCESS SIMPLE/SINGLE 09/25/2020 1 2:00:00 AM EST [facility] ([facility] OFFICE OUTPATIENT VISIT 15 MINUTES 09/21 12:00:00 AM EST - 09/21/2020 12:00:00 AM EST [facility] ([facility]) Psychotherapy ADD ON - 30 Minutes 09/21/2020 12:00:00 AM EST [facility] ([facility]) OFFICE OUTPATIENT VISIT 15 MINUTES 09/21/2020 12:00:00 AM EST [facility] ([facility]) Extended Individual Psychotherapy - 45 min 09/11/2020 12:00:00 AM EST - 09/11/2020 12:00:00 AM EST [facility] ([facility]) Extended Individual Psychotherapy - 45 min 0 12:00:00 AM EST [facility] ([facility]) OFFICE OUTPATIENT VISIT 15 MINUTES 08/24 12:00:00 AM EST - 08/24/2020 12:00:00 AM EST [facility] ([facility]) Psychotherapy ADD ON - 30 Minutes 08/24/2020 12:00:00 AM EST [facility] ([facility]) OFFICE OUTPATIENT VISIT 15 MINUTES 08/24/2020 12:00:00 AM EST [facility] ([facility]) Brief Individual Psychotherapy - 30 min 08/17/2020 12:00:00 AM EST - 08/17/2020 12:00:00 AM EST [facility] ([facility]) Brief Individual Psychotherapy - 30 min 08/17/2020 12: 00:00 AM EST [facility] ([facility]) MHC Telemed E/M Lvl 3--Est pt 07/25/2020 12:00:00 AM EDT - 07/25/2020 12:00:00 AM EDT [facility] ([facility]) Telemed A/O 30" 07/25/2020 12:00:00 AM EDT [facility] ([facility]) MHC Telemed E/M Lvl 3--Est pt 07/25/2020 12:00:00 AM E DT [facility] ([facility]) Brief Individual Psychotherapy - 30 min 07/20/2020 12:00:00 AM EDT - 07/20/2020 12:00:00 AM EDT [facility] ([facility]) Brief Individual Psychotherapy - 30 min 07/20/2020 12: 00:00 AM EDT [facility] ([facility]) TEMPMHCTelemed 30" Psychotherapy 020 12:00:00 AM EDT - 07/06/2020 12:00:00 AM EDT [facility] ([facility]) TEMPMHCTelemed 30" Psychotherapy 07/06/2020 12:00:00 A M EDT [facility] ([facility]) Results ID Date Data Source [id number] 05/18/2021 08:31:00 PM EDT OK[facility]OS ([facility]) Name Value Range Interpretation Code Description Data Becky rce(s) Supporting Document(s) lipase 195 U/L 73-393 Lipase [facility]EMOS ([facility]) ID Date Data Source [id number] 05/18/2021 08:31:00 PM EDT OKEMOS ([facility]) Name Value Range Interpretation Code Description Data Becky rce(s) Supporting Document(s) glucose, fasting 159 mg/dL 70-100 Above high normal Glucose, Fas ting JEFF ([facility]) glomerular filtration rate > 60.0 >60 Glomerula r Filtration Rate JEFF ([facility]) creatinine for GFR 0.93 mg/dL 0.70-1.30 Creatinine for GF R JEFF ([facility]) blood urea nitrogen 9 mg/dL 7-18 Blood Urea Nitro gen JEFF ([facility]) potassium serum 3.9 mEq/L 3.5-5.1 Potassium [facility]) sodium level 137 mEq/L 136-145 Sodium Level OKEMOS ([facility]) chloride level 104 mEq/L 98-107 Chloride Level [facility] ([facility]) carbon dioxide level 28 mEq/L 21-32 Carbon Dioxide Level [facility] ([facility]) calcium level 8.2 mg/dL 8.5-10.1 Below low normal Calcium Level AT [facility]) anion gap 5 mEq/L 8-16 Below low normal Anion Gap OKEMOS ( [facility]) ID Date Data Source [id number] 05/18/2021 08:31:00 PM EDT [facility] ([facility]) Name Value Range Interpretation Code Description Data Becky rce(s) Supporting Document(s) ALT/SGPT 36 U/L 12-78 ALT/SGPT JEFF ([facility]) AST/SGOT 19 U/L 7-37 AST/SGOT OK[facility]OS ([facility]) bilirubin,total 0.4 mg/dL 0.2-1.0 [facility] alkaline phosphatase 75 U/L 45-117 Alkaline Phosph atase [facility] ([facility]) bilirubin,direct 0.1 mg/dL 0.0-0.2 Bilirubin,direct AT [facility]) albumin 3.6 gm/dL 3.2-5.2 Albumin JEFF ([facility]) total protein 7.0 gm/dL 6.4-8.2 Total Protein JEFF ( [facility]) albumin/globulin ratio Albumin/globu bianca Ratio JEFF ([facility]) ID Date Data Source [id number] 05/18/2021 08:31:00 PM EDT JEFF ([facility]) Name Value Range Interpretation Code Description Data Becky rce(s) Supporting Document(s) red blood count 5.35 10 4.30-6.10 Red Blood Count ATHE ([facility]) white blood count 6.3 10 4.0-10.0 White Blood Count JEFF ([facility]) hemoglobin 15.7 g/dL 13.5-17.5 Hemoglobin JEFF ([facility]) hematocrit 46.9 % 42.0-52.0 Hematocrit EJFF ([facility]) mean corpuscular volume 87.7 fL 80.0-96.0 Mean Corpusc ular Volume JEFF ([facility]) mean corpuscular hemoglobin 29.3 pg 27.0-33.0 Mean Cor puscular Hemoglobin JEFF ([facility]) mean corpuscular HGB conc 33.5 g/dL 32.0-36.5 Mean Corpu scular HGB Conc [facility] ([facility]) red cell distribution width 13.3 % 11.5-14.5 Red Cell Distribution Width JEFF ([facility]) platelet count, automated 190 10 150-450 Platelet C ount, Automated JEFF ([facility]) neutrophils % 57.8 % 36.0-66.0 Neutrophils % JEFF ( [facility]) mono % 8.4 % 2.0-8.0 Above high normal [place] % JEFF ([facility]) lymph % 23.9 % 24.0-44.0 Below low normal Lymph % JEFF ( [facility]) eos % 6.5 % 0.0-3.0 Above high normal Eos % JEFF ([facility]) baso % 1.3 % 0.0-1.0 Above high normal Baso % JEFF ([facility]) immature granulocyte % 2.1 % 0-3.0 Immature Gran ulocyte % JEFF ([facility]) nucleated red blood cell % 0.0 % 0-0 Nucleated Red Blood Cell % JEFF ([facility]) neutrophils # 3.7 10 1.5-8.5 Neutrophils # JEFF ( [facility]) lymph # 1.5 10 1.5-5.0 Lymph # JEFF ([facility]) mono # 0.5 10 0.0-0.8 [place] # JEFF ([facility]) eos # 0.4 10 0.0-0.5 Eos # JEFF ([facility]) baso # 0.1 10 0.0-0.2 Baso # JEFF ([facility]) ID Date Data Source [id number] 05/18/2021 08:31:00 PM EDT OK[facility] ([facility]) Name Value Range Interpretation Code Description Data Becky rce(s) Supporting Document(s) lipase 195 U/L 73-393 Lipase [facility] ([facility]) ID Date Data Source [id number] 05/18/2021 08:31:00 PM EDT [facility]) Name Value Range Interpretation Code Description Data Becky rce(s) Supporting Document(s) glucose, fasting 159 mg/dL 70-100 Above high normal Glucose, Fas ting JEFF ([facility]) blood urea nitrogen 9 mg/dL 7-18 Blood Urea Nitro gen JEFF ([facility]) creatinine for GFR 0.93 mg/dL 0.70-1.30 Creatinine for GF R JEFF ([facility]) glomerular filtration rate > 60.0 >60 Glomerula r Filtration Rate JEFF ([facility]) potassium serum 3.9 mEq/L 3.5-5.1 Potassium Serum ATH NA ([facility]) sodium level 137 mEq/L 136-145 Sodium Level JEFF ([facility]) chloride level 104 mEq/L 98-107 Chloride Level JEFF ([facility]) carbon dioxide level 28 mEq/L 21-32 Carbon Dioxide Level JEFF ([facility]) calcium level 8.2 mg/dL 8.5-10.1 Below low normal Calcium Level AT [facility] ([facility]) anion gap 5 mEq/L 8-16 Below low normal Anion Gap JEFF ( [facility]) ID Date Data Source [id number] 05/18/2021 08:31:00 PM EDT JEFF ([facility]) Name Value Range Interpretation Code Description Data Becky rce(s) Supporting Document(s) AST/SGOT 19 U/L 7-37 AST/SGOT JEFF ([facility]) ALT/SGPT 36 U/L 12-78 ALT/SGPT JEFF ([facility]) bilirubin,total 0.4 mg/dL 0.2-1.0 Bilirubin,total ATHE ([facility]) alkaline phosphatase 75 U/L 45-117 Alkaline Phosph atase JEFF ([facility]) bilirubin,direct 0.1 mg/dL 0.0-0.2 Bilirubin,direct AT [facility] ([facility]) total protein 7.0 gm/dL 6.4-8.2 Total Protein JEFF ( [facility]) albumin/globulin ratio Albumin/globu bianca Ratio JEFF ([facility]) albumin 3.6 gm/dL 3.2-5.2 Albumin JEFF ([facility]) ID Date Data Source [id number] 05/18/2021 08:31:00 PM EDT JEFF ([facility]) Name Value Range Interpretation Code Description Data Becky rce(s) Supporting Document(s) white blood count 6.3 10 4.0-10.0 White Blood Count JEFF ([facility]) red blood count 5.35 10 4.30-6.10 Red Blood Count ATHE NA ([facility]) hemoglobin 15.7 g/dL 13.5-17.5 Hemoglobin JEFF ([facility]) mean corpuscular volume 87.7 fL 80.0-96.0 Mean Corpusc ular Volume JEFF ([facility]) hematocrit 46.9 % 42.0-52.0 Hematocrit JEFF ([facility]) mean corpuscular hemoglobin 29.3 pg 27.0-33.0 Mean Cor puscular Hemoglobin JEFF ([facility]) mean corpuscular HGB conc 33.5 g/dL 32.0-36.5 Mean Corpu scular HGB Conc JEFF ([facility]) red cell distribution width 13.3 % 11.5-14.5 Red Cell Distribution Width JEFF ([facility]) neutrophils % 57.8 % 36.0-66.0 Neutrophils % OK[facility] ( [facility]) platelet count, automated 190 10 150-450 Platelet C ount, Automated JEFF ([facility]) lymph % 23.9 % 24.0-44.0 Below low normal Lymph % JEFF ( [facility]) mono % 8.4 % 2.0-8.0 Above high normal [place] % JEFF ([facility]) eos % 6.5 % 0.0-3.0 Above high normal Eos % OK[facility]OS ([facility]) immature granulocyte % 2.1 % 0-3.0 Immature Gran ulocyte % [facility] ([facility]) baso % 1.3 % 0.0-1.0 Above high normal Baso % JEFF ([facility]) nucleated red blood cell % 0.0 % 0-0 Nucleated Red Blood Cell % JEFF ([facility]) neutrophils # 3.7 10 1.5-8.5 Neutrophils # JEFF ( [facility]) lymph # 1.5 10 1.5-5.0 Lymph # JEFF ([facility]) mono # 0.5 10 0.0-0.8 [place] # JEFF ([facility]) baso # 0.1 10 0.0-0.2 Baso # JEFF ([facility]) eos # 0.4 10 0.0-0.5 Eos # JEFF ([facility]) ID Date Data Source [id number] 03/27/2021 10:41:00 AM EDT [facility]) Name Value Range Interpretation Code Description Data Becky rce(s) Supporting Document(s) Hemoglobin A1c/Hemoglobin.total in Blood 7.5 % Abnormal (applies to non- numeric results) Hba1C JEFF ([facility]) ID Date Data Source [id number] 03/27/2021 10:41:00 [facility] Name Value Range Interpretation Code Description Data Becky rce(s) Supporting Document(s) Hemoglobin A1c/Hemoglobin.total in Blood 7.5 % Abnormal (applies to non- numeric results) Hba1C [facility] ([facility]) ID Date Data Source [id number] 03/27/2021 10:41:00 AM EDT [facility]) Name Value Range Interpretation Code Description Data Becky rce(s) Supporting Document(s) Hemoglobin A1c/Hemoglobin.total in Blood 7.5 % Abnormal (applies to non- numeric results) Hba1C JEFF ([facility]) ID Date Data Source [id number] 03/22/2021 12:00:00 AM EDT [facility]) Name Value Range Interpretation Code Description Data Becky rce(s) Supporting Document(s) Right Eye Incomplete - Unable to Capture Image Right Eye JEFF ([facility]) Left Eye Incomplete - Unable to Capture Image Left Eye [facility] ([facility]) Ophthalmology Consult Not Ordered - Unable to Complete Exam Ophthalmology Consult [facility]) ID Date Data Source [id number] 03/22/2021 12:00:00 AM EDT [facility]) Name Value Range Interpretation Code Description Data Becky rce(s) Supporting Document(s) Right Eye Incomplete - Unable to Capture Image Right Eye JEFF ([facility]) Ophthalmology Consult Not Ordered - Unable to Complete Exam Ophthalmology Consult JEFF ([facility]) Left Eye Incomplete - Unable to Capture Image Left Eye JEFF ([facility]) ID Date Data Source [id number] 03/22/2021 12:00:00 AM EDT [facility]) Name Value Range Interpretation Code Description Data Becky rce(s) Supporting Document(s) Right Eye Incomplete - Unable to Capture Image Right Eye JEFF ([facility]) Ophthalmology Consult Not Ordered - Unable to Complete Exam Ophthalmology Consult [facility] ([facility]) Left Eye Incomplete - Unable to Capture Image Left Eye [facility] ([facility]) ID Date Data Source [id number] 03/22/2021 12:00:00 AM EDT [facility]) Name Value Range Interpretation Code Description Data Becky rce(s) Supporting Document(s) Left Eye Incomplete - Unable to Capture Image Left Eye JEFF ([facility]) Right Eye Incomplete - Unable to Capture Image Right [facility] ([facility]) Ophthalmology Consult Not Ordered - Unable to Complete Exam Ophthalmology Consult [facility] ([facility]) ID Date Data Source [id number] 03/22/2021 12:00:00 AM EDT [facility] ([facility]) Name Value Range Interpretation Code Description Data Becky rce(s) Supporting Document(s) Right Eye Incomplete - Unable to Capture Image Right Eye [facility] ([facility]) Left Eye Incomplete - Unable to Capture Image Left Eye [facility] ([facility]) Ophthalmology Consult Not Ordered - Unable to Complete Exam Ophthalmology Consult [facility] ([facility]) ID Date Data Source [id number] 01/26/2021 03:20:00 AM EDT [facility] Name Value Range Interpretation Code Description Data Becky rce(s) Supporting Document(s) SARS-CoV-2 (COVID 19) NEGATIVE - SARS-CoV-2 (COVID19) [facility] This lab was ordered by [facility] a nd reported by [facility]. ID Date Data Source [id number] 11/15/2020 03:50:00 PM EST [facility] ([facility]) Name Value Range Interpretation Code Description Data Becky rce(s) Supporting Document(s) Hemoglobin A1c/Hemoglobin.total in Blood 7.6 [facility] ([facility]) Glucose [Mass/volume] in Serum or Plasma 128 [facility] ([facility]) ID Date Data Source [id number] 09/18/2020 09:39:00 AM EST [facility] ([facility]) Name Value Range Interpretation Code Description Data Becky rce(s) Supporting Document(s) cholesterol level 211 mg/dL <200 Above high normal Cholesterol Level [facility] ([facility]) triglycerides level 677 mg/dL <150 Above high normal Triglycer ides Level [facility] ([facility]) non-HDL-C 179 mg/dL Non-hdl-c [facility] ([facility]) HDL cholesterol 32 mg/dL >40 Below low normal HDL Cholestero l [facility] ([facility]) cholesterol risk ratio <5 Above high normal Choles terol Risk Ratio [facility] ([facility]) ID Date Data Source [id number] 09/18/2020 09:39:00 AM EST [facility] ([facility]) Name Value Range Interpretation Code Description Data Becky rce(s) Supporting Document(s) glucose, fasting 145 mg/dL 70-100 Above high normal Glucose, Fas ting [facility] ([facility]) creatinine for GFR 1.20 mg/dL 0.70-1.30 Creatinine for GF R JE[facility] ([facility]) blood urea nitrogen 19 mg/dL 7-18 Above high normal Blood Ure a Nitrogen [facility] ([facility]) glomerular filtration rate > 60.0 >60 Glomerula r Filtration Rate [facility] ([facility]) potassium serum 4.1 mEq/L 3.5-5.1 Potassium Serum ATHE NA ([facility]) chloride level 103 mEq/L 98-107 Chloride Level [facility] ([facility]) sodium level 137 mEq/L 136-145 Sodium Level JE[facility] ([facility]) anion gap 5 mEq/L 8-16 Below low normal Anion Gap [facility] ( [facility]) carbon dioxide level 29 mEq/L 21-32 Carbon Dioxide Level [facility] ([facility]) calcium level 9.0 mg/dL 8.5-10.1 Calcium Level [facility] ( [facility]) ALT/SGPT 38 U/L 12-78 ALT/SGPT [facility] ([facility]) AST/SGOT 16 U/L 7-37 AST/SGOT [facility] ([facility]) total protein 7.6 gm/dL 6.4-8.2 Total Protein JE[facility] ( [facility]) alkaline phosphatase 82 U/L 45-117 Alkaline Phosph atase [facility] ([facility]) bilirubin,total 0.4 mg/dL 0.2-1.0 Bilirubin,total ATHE NA ([facility]) albumin/globulin ratio Albumin/globu bianca Ratio [facility] ([facility]) albumin 4.0 gm/dL 3.2-5.2 Albumin [facility] ([facility]) ID Date Data Source [id number] 09/18/2020 09:39:00 AM EST [facility] ([facility]) Name Value Range Interpretation Code Description Data Becky rce(s) Supporting Document(s) cholesterol level 211 mg/dL <200 Above high normal Cholesterol Level [facility] ([facility]) HDL cholesterol 32 mg/dL >40 Below low normal HDL Cholestero l [facility] ([facility]) triglycerides level 677 mg/dL <150 Above high normal Triglycer ides Level [facility] ([facility]) non-HDL-C 179 mg/dL Non-hdl-c JE[facility] ([facility]) cholesterol risk ratio <5 Above high normal Choles terol Risk Ratio [facility] ([facility]) ID Date Data Source [id number] 09/18/2020 09:39:00 AM EST [facility] ([facility]) Name Value Range Interpretation Code Description Data Becky rce(s) Supporting Document(s) glucose, fasting 145 mg/dL 70-100 Above high normal Glucose, Fas ting [facility] ([facility]) blood urea nitrogen 19 mg/dL 7-18 Above high normal Blood Ure a Nitrogen [facility] ([facility]) creatinine for GFR 1.20 mg/dL 0.70-1.30 Creatinine for GF R JEFF ([facility]) glomerular filtration rate > 60.0 >60 Glomerula r Filtration Rate [facility] ([facility]) sodium level 137 mEq/L 136-145 Sodium Level JE[facility] ([facility]) potassium serum 4.1 mEq/L 3.5-5.1 Potassium Serum ATHE NA ([facility]) chloride level 103 mEq/L 98-107 Chloride Level [facility] ([facility]) anion gap 5 mEq/L 8-16 Below low normal Anion Gap JE[facility] ( [facility]) carbon dioxide level 29 mEq/L 21-32 Carbon Dioxide Level [facility] ([facility]) calcium level 9.0 mg/dL 8.5-10.1 Calcium Level [facility] ( [facility]) AST/SGOT 16 U/L 7-37 AST/SGOT [facility] ([facility]) ALT/SGPT 38 U/L 12-78 ALT/SGPT [facility] ([facility]) alkaline phosphatase 82 U/L 45-117 Alkaline Phosph atase [facility] ([facility]) total protein 7.6 gm/dL 6.4-8.2 Total Protein [facility] ( [facility]) bilirubin,total 0.4 mg/dL 0.2-1.0 Bilirubin,total AT[facility] ([facility]) albumin 4.0 gm/dL 3.2-5.2 Albumin JE[facility] ([facility]) albumin/globulin ratio Albumin/globu bianca Ratio [facility] ([facility]) ID Date Data Source [id number] 09/18/2020 09:39:00 AM EST [facility] ([facility]) Name Value Range Interpretation Code Description Data Becky rce(s) Supporting Document(s) triglycerides level 677 mg/dL <150 Above high normal Triglycer ides Level [facility] ([facility]) cholesterol level 211 mg/dL <200 Above high normal Cholesterol Level [facility] ([facility]) non-HDL-C 179 mg/dL Non-hdl-c [facility] ([facility]) HDL cholesterol 32 mg/dL >40 Below low normal HDL Cholestero l [facility] ([facility]) cholesterol risk ratio <5 Above high normal Choles terol Risk Ratio [facility] ([facility]) ID Date Data Source [id number] 09/18/2020 09:39:00 AM EST [facility] ([facility]) Name Value Range Interpretation Code Description Data Becky rce(s) Supporting Document(s) glucose, fasting 145 mg/dL 70-100 Above high normal Glucose, Fas ting [facility] ([facility]) creatinine for GFR 1.20 mg/dL 0.70-1.30 Creatinine for GF R JEFF ([facility]) blood urea nitrogen 19 mg/dL 7-18 Above high normal Blood Ure a Nitrogen EJFF ([facility]) glomerular filtration rate > 60.0 >60 Glomerula r Filtration Rate [facility] ([facility]) potassium serum 4.1 mEq/L 3.5-5.1 Potassium Serum ATHE NA ([facility]) sodium level 137 mEq/L 136-145 Sodium Level JEFF ([facility]) carbon dioxide level 29 mEq/L 21-32 Carbon Dioxide Level [facility] ([facility]) chloride level 103 mEq/L 98-107 Chloride Level [facility] ([facility]) AST/SGOT 16 U/L 7-37 AST/SGOT [facility] ([facility]) calcium level 9.0 mg/dL 8.5-10.1 Calcium Level JEFF ( [facility]) anion gap 5 mEq/L 8-16 Below low normal Anion Gap JE[facility] ( [facility]) bilirubin,total 0.4 mg/dL 0.2-1.0 Bilirubin,total ATHE NA ([facility]) ALT/SGPT 38 U/L 12-78 ALT/SGPT [facility] ([facility]) alkaline phosphatase 82 U/L 45-117 Alkaline Phosph atase [facility] ([facility]) albumin/globulin ratio Albumin/globu bianca Ratio [facility] ([facility]) total protein 7.6 gm/dL 6.4-8.2 Total Protein [facility] ( [facility]) albumin 4.0 gm/dL 3.2-5.2 Albumin [facility] ([facility]) ID Date Data Source [id number] 09/18/2020 09:39:00 AM EST [facility] ([facility]) Name Value Range Interpretation Code Description Data Becky rce(s) Supporting Document(s) triglycerides level 677 mg/dL <150 Above high normal Triglycer ides Level [facility] ([facility]) cholesterol level 211 mg/dL <200 Above high normal Cholesterol Level [facility] ([facility]) cholesterol risk ratio <5 Above high normal Choles terol Risk Ratio [facility] ([facility]) HDL cholesterol 32 mg/dL >40 Below low normal HDL Cholestero l JE[facility] ([facility]) non-HDL-C 179 mg/dL Non-hdl-c JE[facility] ([facility]) ID Date Data Source [id number] 09/18/2020 09:39:00 AM EST [facility] ([facility]) Name Value Range Interpretation Code Description Data Becky rce(s) Supporting Document(s) glucose, fasting 145 mg/dL 70-100 Above high normal Glucose, Fas ting [facility] ([facility]) blood urea nitrogen 19 mg/dL 7-18 Above high normal Blood Ure a Nitrogen [facility] ([facility]) creatinine for GFR 1.20 mg/dL 0.70-1.30 Creatinine for GF R [facility] ([facility]) sodium level 137 mEq/L 136-145 Sodium Level JE[facility] ([facility]) glomerular filtration rate > 60.0 >60 Glomerula r Filtration Rate [facility] ([facility]) carbon dioxide level 29 mEq/L 21-32 Carbon Dioxide Level [facility] ([facility]) potassium serum 4.1 mEq/L 3.5-5.1 Potassium Serum ATHE NA ([facility]) chloride level 103 mEq/L 98-107 Chloride Level [facility] ([facility]) anion gap 5 mEq/L 8-16 Below low normal Anion Gap [facility] ( [facility]) calcium level 9.0 mg/dL 8.5-10.1 Calcium Level [facility] ( [facility]) ALT/SGPT 38 U/L 12-78 ALT/SGPT [facility] ([facility]) AST/SGOT 16 U/L 7-37 AST/SGOT [facility] ([facility]) alkaline phosphatase 82 U/L 45-117 Alkaline Phosph atase [facility] ([facility]) bilirubin,total 0.4 mg/dL 0.2-1.0 Bilirubin,total AT[facility] ([facility]) albumin/globulin ratio Albumin/globu bianca Ratio [facility] ([facility]) total protein 7.6 gm/dL 6.4-8.2 Total Protein [facility] ( [facility]) albumin 4.0 gm/dL 3.2-5.2 Albumin [facility] ([facility]) ID Date Data Source [id number] 09/18/2020 09:39:00 AM EST [facility] ([facility]) Name Value Range Interpretation Code Description Data Becky rce(s) Supporting Document(s) triglycerides level 677 mg/dL <150 Above high normal Triglycer ides Level [facility] ([facility]) HDL cholesterol 32 mg/dL >40 Below low normal HDL Cholestero l [facility] ([facility]) cholesterol level 211 mg/dL <200 Above high normal Cholesterol Level [facility] ([facility]) non-HDL-C 179 mg/dL Non-hdl-c [facility] ([facility]) cholesterol risk ratio <5 Above high normal Choles terol Risk Ratio [facility] ([facility]) ID Date Data Source [id number] 09/18/2020 09:39:00 AM EST [facility] ([facility]) Name Value Range Interpretation Code Description Data Becky rce(s) Supporting Document(s) glucose, fasting 145 mg/dL 70-100 Above high normal Glucose, Fas ting [facility] ([facility]) creatinine for GFR 1.20 mg/dL 0.70-1.30 Creatinine for GF R [facility] ([facility]) blood urea nitrogen 19 mg/dL 7-18 Above high normal Blood Ure a Nitrogen [facility] ([facility]) glomerular filtration rate > 60.0 >60 Glomerula r Filtration Rate [facility] ([facility]) sodium level 137 mEq/L 136-145 Sodium Level JEFF ([facility]) potassium serum 4.1 mEq/L 3.5-5.1 Potassium Serum ATHE NA ([facility]) carbon dioxide level 29 mEq/L 21-32 Carbon Dioxide Level [facility] ([facility]) anion gap 5 mEq/L 8-16 Below low normal Anion Gap [facility] ( [facility]) chloride level 103 mEq/L 98-107 Chloride Level [facility] ([facility]) ALT/SGPT 38 U/L 12-78 ALT/SGPT [facility] ([facility]) calcium level 9.0 mg/dL 8.5-10.1 Calcium Level JE[facility] ( [facility]) AST/SGOT 16 U/L 7-37 AST/SGOT [facility] ([facility]) total protein 7.6 gm/dL 6.4-8.2 Total Protein JEFF ( [facility]) alkaline phosphatase 82 U/L 45-117 Alkaline Phosph atase [facility] ([facility]) bilirubin,total 0.4 mg/dL 0.2-1.0 Bilirubin,total ATHE ([facility]) albumin 4.0 gm/dL 3.2-5.2 Albumin JE[facility] ([facility]) albumin/globulin ratio Albumin/globu bianca Ratio [facility] ([facility]) ID Date Data Source [id number] 09/18/2020 09:39:00 AM EST [facility] ([facility]) Name Value Range Interpretation Code Description Data Becky rce(s) Supporting Document(s) triglycerides level 677 mg/dL <150 Above high normal Triglycer ides Level [facility] ([facility]) cholesterol level 211 mg/dL <200 Above high normal Cholesterol Level [facility] ([facility]) HDL cholesterol 32 mg/dL >40 Below low normal HDL Cholestero l JE[facility] ([facility]) cholesterol risk ratio <5 Above high normal Choles terol Risk Ratio [facility] ([facility]) non-HDL-C 179 mg/dL Non-hdl-c [facility] ([facility]) ID Date Data Source [id number] 09/18/2020 09:39:00 AM EST [facility] ([facility]) Name Value Range Interpretation Code Description Data Becky rce(s) Supporting Document(s) glucose, fasting 145 mg/dL 70-100 Above high normal Glucose, Fas ting [facility] ([facility]) blood urea nitrogen 19 mg/dL 7-18 Above high normal Blood Ure a Nitrogen [facility] ([facility]) creatinine for GFR 1.20 mg/dL 0.70-1.30 Creatinine for GF R [facility]FF ([facility]) glomerular filtration rate > 60.0 >60 Glomerula r Filtration Rate [facility] ([facility]) sodium level 137 mEq/L 136-145 Sodium Level JE[facility] ([facility]) potassium serum 4.1 mEq/L 3.5-5.1 Potassium Serum [facility] ([facility]) anion gap 5 mEq/L 8-16 Below low normal Anion Gap JEFF ( [facility]) chloride level 103 mEq/L 98-107 Chloride Level [facility] ([facility]) carbon dioxide level 29 mEq/L 21-32 Carbon Dioxide Level [facility] ([facility]) AST/SGOT 16 U/L 7-37 AST/SGOT [facility] ([facility]) calcium level 9.0 mg/dL 8.5-10.1 Calcium Level [facility] ( [facility]) ALT/SGPT 38 U/L 12-78 ALT/SGPT [facility] ([facility]) alkaline phosphatase 82 U/L 45-117 Alkaline Phosph atase [facility] ([facility]) bilirubin,total 0.4 mg/dL 0.2-1.0 Bilirubin,total ATHE NA ([facility]) albumin 4.0 gm/dL 3.2-5.2 Albumin JE[facility] ([facility]) total protein 7.6 gm/dL 6.4-8.2 Total Protein JEFF ( [facility]) albumin/globulin ratio Albumin/globu bianca Ratio [facility] ([facility]) ID Date Data Source [id number] 09/18/2020 09:39:00 AM EST [facility] ([facility]) Name Value Range Interpretation Code Description Data Becky rce(s) Supporting Document(s) HDL cholesterol 32 mg/dL >40 Below low normal HDL Cholestero l JE[facility] ([facility]) triglycerides level 677 mg/dL <150 Above high normal Triglycer ides Level [facility] ([facility]) cholesterol level 211 mg/dL <200 Above high normal Cholesterol Level [facility] ([facility]) non-HDL-C 179 mg/dL Non-hdl-c JE[facility] ([facility]) cholesterol risk ratio <5 Above high normal Choles terol Risk Ratio [facility] ([facility]) ID Date Data Source [id number] 09/18/2020 09:39:00 AM EST [facility] ([facility]) Name Value Range Interpretation Code Description Data Becky rce(s) Supporting Document(s) glucose, fasting 145 mg/dL 70-100 Above high normal Glucose, Fas ting JEFF ([facility]) glomerular filtration rate > 60.0 >60 Glomerula r Filtration Rate [facility] ([facility]) blood urea nitrogen 19 mg/dL 7-18 Above high normal Blood Ure a Nitrogen JE[facility] ([facility]) creatinine for GFR 1.20 mg/dL 0.70-1.30 Creatinine for GF R JEFF ([facility]) chloride level 103 mEq/L 98-107 Chloride Level [facility] ([facility]) sodium level 137 mEq/L 136-145 Sodium Level JEFF (No [facility]) potassium serum 4.1 mEq/L 3.5-5.1 Potassium Serum ATHE NA ([facility]) carbon dioxide level 29 mEq/L 21-32 Carbon Dioxide Level [facility] ([facility]) anion gap 5 mEq/L 8-16 Below low normal Anion Gap JEFF ( [facility]) calcium level 9.0 mg/dL 8.5-10.1 Calcium Level JEFF ( [facility]) alkaline phosphatase 82 U/L 45-117 Alkaline Phosph atase [facility] ([facility]) ALT/SGPT 38 U/L 12-78 ALT/SGPT [facility] ([facility]) AST/SGOT 16 U/L 7-37 AST/SGOT [facility] ([facility]) albumin 4.0 gm/dL 3.2-5.2 Albumin JE[facility] ([facility]) total protein 7.6 gm/dL 6.4-8.2 Total Protein JEFF ( [facility]) bilirubin,total 0.4 mg/dL 0.2-1.0 Bilirubin,total AT[facility] ([facility]) albumin/globulin ratio Albumin/globu bianca Ratio [facility] ([facility]) ID Date Data Source [id number] 09/18/2020 09:39:00 AM EST [facility] ([facility]) Name Value Range Interpretation Code Description Data Becky rce(s) Supporting Document(s) Glucose, Fasting 145 mg/dL 70-100 [facility] ([facility]) Blood Urea Nitrogen 19 mg/dL 7-18 [facility] (No [facility]) Creatinine For GFR 1.20 mg/dL 0.70-1.30 [facility] ([facility]) Glomerular Filtration Rate Laboratory test result [facility] ([facility]) <content>Units are mL/min/1.73 m2</content>
<content></content>
<content>Chronic Kidney Disease Staging per NKF:</content>
<content></content>
<content>Stage I & II GFR >=60 Normal to Mildly Decreased</content>
<content>Stage III GFR 30- 59 Moderately Decreased</content>
<content>Stage IV GFR 15-29 Severely Decreased</content>
<content>Stage V GFR <15 Very Little GFR Left</content>
<content>ESRD GFR <15 on [employer]</content>
<content></content> Potassium Serum 4.1 meq/L 3.5-5.1 [facility] ([facility]) Sodium Level 137 meq/L 136-145 [facility] ([facility]) Carbon Dioxide Level 29 meq/L 21-32 [facility] ( [facility]) Chloride Level 103 meq/L 98-107 [facility] ([facility]) Anion Gap 5 meq/L 8-16 [facility] ([facility]) Alt/SGPT 38 U/L 12-78 [facility] ([facility]) Ast/Sgot 16 U/L 7-37 [facility] ([facility]) Calcium Level 9.0 mg/dL 8.5-10.1 [facility] ([facility]) Bilirubin,Total 0.4 mg/dL 0.2-1.0 [facility] ([facility]) Alkaline Phosphatase 82 U/L 45-117 [facility] ( [facility]) Total Protein 7.6 GM/DL 6.4-8.2 [facility] ([facility]) Albumin 4.0 GM/DL 3.2-5.2 [facility] ([facility]) Albumin/Globulin Ratio 1.1 [facility] ([facility]) ID Date Data Source [id number] 09/18/2020 09:39:00 AM EST [facility] ([facility]) Name Value Range Interpretation Code Description Data Becky rce(s) Supporting Document(s) Triglycerides Level 677 mg/dL [facility] ([facility]) Cholesterol Level 211 mg/dL [facility] ([facility]) HDL Cholesterol 32 mg/dL [facility] ([facility]) Cholesterol Risk Ratio 6.593 [facility] ([facility]) Non-HDL-C 179 mg/dL [facility] ([facility]) ID Date Data Source [id number] 09/18/2020 09:39:00 AM EST [facility] ([facility]) Name Value Range Interpretation Code Description Data Becky rce(s) Supporting Document(s) cholesterol level 211 mg/dL <200 Above high normal Cholesterol Level [facility] ([facility]) triglycerides level 677 mg/dL <150 Above high normal Triglycer ides Level [facility] ([facility]) HDL cholesterol 32 mg/dL >40 Below low normal HDL Cholestero l JE[facility] ([facility]) cholesterol risk ratio <5 Above high normal Choles terol Risk Ratio [facility] ([facility]) non-HDL-C 179 mg/dL Non-hdl-c [facility] ([facility]) ID Date Data Source [id number] 09/18/2020 09:39:00 AM EST [facility] ([facility]) Name Value Range Interpretation Code Description Data Becky rce(s) Supporting Document(s) glucose, fasting 145 mg/dL 70-100 Above high normal Glucose, Fas ting [facility] ([facility]) blood urea nitrogen 19 mg/dL 7-18 Above high normal Blood Ure a Nitrogen [facility] ([facility]) creatinine for GFR 1.20 mg/dL 0.70-1.30 Creatinine for GF R JEFF ([facility]) glomerular filtration rate > 60.0 >60 Glomerula r Filtration Rate JE[facility] ([facility]) sodium level 137 mEq/L 136-145 Sodium Level JE[facility] ([facility]) chloride level 103 mEq/L 98-107 Chloride Level JE[facility] ([facility]) potassium serum 4.1 mEq/L 3.5-5.1 Potassium Serum ATHE ([facility]) anion gap 5 mEq/L 8-16 Below low normal Anion Gap JEFF ( [facility]) carbon dioxide level 29 mEq/L 21-32 Carbon Dioxide Level JE[facility] ([facility]) calcium level 9.0 mg/dL 8.5-10.1 Calcium Level JEFF ( [facility]) AST/SGOT 16 U/L 7-37 AST/SGOT [facility] ([facility]) ALT/SGPT 38 U/L 12-78 ALT/SGPT [facility] ([facility]) bilirubin,total 0.4 mg/dL 0.2-1.0 Bilirubin,total ATHE ([facility]) alkaline phosphatase 82 U/L 45-117 Alkaline Phosph atase JE[facility] ([facility]) total protein 7.6 gm/dL 6.4-8.2 Total Protein JEFF ( [facility]) albumin/globulin ratio Albumin/globu bianca Ratio [facility]FF ([facility]) albumin 4.0 gm/dL 3.2-5.2 Albumin [facility] ([facility]) ID Date Data Source [id number] 09/18/2020 09:39:00 AM EST [facility] ([facility]) Name Value Range Interpretation Code Description Data Becky rce(s) Supporting Document(s) triglycerides level 677 mg/dL <150 Above high normal Triglycer ides Level JE[facility] ([facility]) cholesterol level 211 mg/dL <200 Above high normal Cholesterol Level JE[facility] ([facility]) HDL cholesterol 32 mg/dL >40 Below low normal HDL Cholestero l JEFF ([facility]) cholesterol risk ratio <5 Above high normal Choles terol Risk Ratio JEFF ([facility]) non-HDL-C 179 mg/dL Non-hdl-c JE[facility] ([facility]) ID Date Data Source [id number] 09/18/2020 09:39:00 AM EST [facility] ([facility]) Name Value Range Interpretation Code Description Data Becky rce(s) Supporting Document(s) glucose, fasting 145 mg/dL 70-100 Above high normal Glucose, Fas ting JEFF ([facility]) creatinine for GFR 1.20 mg/dL 0.70-1.30 Creatinine for GF R JEFF ([facility]) blood urea nitrogen 19 mg/dL 7-18 Above high normal Blood Ure a Nitrogen JE[facility] ([facility]) sodium level 137 mEq/L 136-145 Sodium Level JEFF ([facility]) glomerular filtration rate > 60.0 >60 Glomerula r Filtration Rate JEFF ([facility]) potassium serum 4.1 mEq/L 3.5-5.1 Potassium Serum ATHE NA ([facility]) anion gap 5 mEq/L 8-16 Below low normal Anion Gap JEFF ( [facility]) chloride level 103 mEq/L 98-107 Chloride Level JEFF ([facility]) carbon dioxide level 29 mEq/L 21-32 Carbon Dioxide Level JEFF ([facility]) calcium level 9.0 mg/dL 8.5-10.1 Calcium Level JEFF ( [facility]) ALT/SGPT 38 U/L 12-78 ALT/SGPT JEFF ([facility]) AST/SGOT 16 U/L 7-37 AST/SGOT JEFF ([facility]) bilirubin,total 0.4 mg/dL 0.2-1.0 Bilirubin,total ATHE ([facility]) total protein 7.6 gm/dL 6.4-8.2 Total Protein JEFF ( [facility]) alkaline phosphatase 82 U/L 45-117 Alkaline Phosph atase JEFF ([facility]) albumin 4.0 gm/dL 3.2-5.2 Albumin JEFF ([facility]) albumin/globulin ratio Albumin/globu bianca Ratio JEFF ([facility]) ID Date Data Source [id number] 09/18/2020 09:39:00 AM EST JEFF ([facility]) Name Value Range Interpretation Code Description Data Becky rce(s) Supporting Document(s) triglycerides level 677 mg/dL <150 Above high normal Triglycer ides Level JEFF ([facility]) HDL cholesterol 32 mg/dL >40 Below low normal HDL Cholestero l JEFF ([facility]) non-HDL-C 179 mg/dL Non-hdl-c JEFF ([facility]) cholesterol level 211 mg/dL <200 Above high normal Cholesterol Level JEFF ([facility]) cholesterol risk ratio <5 Above high normal Choles terol Risk Ratio JEFF ([facility]) ID Date Data Source [id number] 09/18/2020 09:39:00 AM EST JEFF ([facility]) Name Value Range Interpretation Code Description Data Becky rce(s) Supporting Document(s) glucose, fasting 145 mg/dL 70-100 Above high normal Glucose, Fas ting JEFF ([facility]) blood urea nitrogen 19 mg/dL 7-18 Above high normal Blood Ure a Nitrogen JEFF ([facility]) sodium level 137 mEq/L 136-145 Sodium Level JEFF (No [facility]) glomerular filtration rate > 60.0 >60 Glomerula r Filtration Rate JEFF ([facility]) creatinine for GFR 1.20 mg/dL 0.70-1.30 Creatinine for GF R JEFF ([facility]) potassium serum 4.1 mEq/L 3.5-5.1 Potassium Serum ATHE NA ([facility]) chloride level 103 mEq/L 98-107 Chloride Level JEFF ([facility]) carbon dioxide level 29 mEq/L 21-32 Carbon Dioxide Level JEFF ([facility]) anion gap 5 mEq/L 8-16 Below low normal Anion Gap JEFF ( [facility]) calcium level 9.0 mg/dL 8.5-10.1 Calcium Level JEFF ( [facility]) ALT/SGPT 38 U/L 12-78 ALT/SGPT JEFF ([facility]) alkaline phosphatase 82 U/L 45-117 Alkaline Phosph atase JEFF ([facility]) bilirubin,total 0.4 mg/dL 0.2-1.0 Bilirubin,total ATHE ([facility]) AST/SGOT 16 U/L 7-37 AST/SGOT JEFF ([facility]) albumin 4.0 gm/dL 3.2-5.2 Albumin JEFF ([facility]) total protein 7.6 gm/dL 6.4-8.2 Total Protein JEFF ( [facility]) albumin/globulin ratio Albumin/globu bianca Ratio JEFF ([facility]) ID Date Data Source [id number] 09/18/2020 09:39:00 AM EST JEFF ([facility]) Name Value Range Interpretation Code Description Data Becky rce(s) Supporting Document(s) HDL cholesterol 32 mg/dL >40 Below low normal HDL Cholestero l JEFF ([facility]) cholesterol level 211 mg/dL <200 Above high normal Cholesterol Level JEFF ([facility]) triglycerides level 677 mg/dL <150 Above high normal Triglycer ides Level JEFF ([facility]) non-HDL-C 179 mg/dL Non-hdl-c JEFF ([facility]) cholesterol risk ratio <5 Above high normal Choles terol Risk Ratio JEFF ([facility]) ID Date Data Source [id number] 09/18/2020 09:39:00 AM EST JEFF ([facility]) Name Value Range Interpretation Code Description Data Becky rce(s) Supporting Document(s) glucose, fasting 145 mg/dL 70-100 Above high normal Glucose, Fas ting JEFF ([facility]) blood urea nitrogen 19 mg/dL 7-18 Above high normal Blood Ure a Nitrogen JEFF ([facility]) creatinine for GFR 1.20 mg/dL 0.70-1.30 Creatinine for GF R JEFF ([facility]) glomerular filtration rate > 60.0 >60 Glomerula r Filtration Rate JEFF ([facility]) sodium level 137 mEq/L 136-145 Sodium Level JEFF ([facility]) carbon dioxide level 29 mEq/L 21-32 Carbon Dioxide Level JEFF ([facility]) potassium serum 4.1 mEq/L 3.5-5.1 Potassium Serum ATHE ([facility]) chloride level 103 mEq/L 98-107 Chloride Level OKEMOS ([facility]) calcium level 9.0 mg/dL 8.5-10.1 Calcium Level JEFF ( [facility]) AST/SGOT 16 U/L 7-37 AST/SGOT JEFF ([facility]) anion gap 5 mEq/L 8-16 Below low normal Anion Gap JEFF ( [facility]) ALT/SGPT 38 U/L 12-78 ALT/SGPT JEFF ([facility]) alkaline phosphatase 82 U/L 45-117 Alkaline Phosph atase JEFF ([facility]) bilirubin,total 0.4 mg/dL 0.2-1.0 Bilirubin,total ATHE NA ([facility]) total protein 7.6 gm/dL 6.4-8.2 Total Protein JEFF ( [facility]) albumin/globulin ratio Albumin/globu bianca Ratio JEFF ([facility]) albumin 4.0 gm/dL 3.2-5.2 Albumin JEFF ([facility]) ID Date Data Source [id number] 09/18/2020 09:39:00 AM EST JEFF ([facility]) Name Value Range Interpretation Code Description Data Becky rce(s) Supporting Document(s) cholesterol level 211 mg/dL <200 Above high normal Cholesterol Level JEFF ([facility]) triglycerides level 677 mg/dL <150 Above high normal Triglycer ides Level JEFF ([facility]) HDL cholesterol 32 mg/dL >40 Below low normal HDL Cholestero l JEFF ([facility]) non-HDL-C 179 mg/dL Non-hdl-c JEFF ([facility]) cholesterol risk ratio <5 Above high normal Choles terol Risk Ratio JEFF ([facility]) ID Date Data Source [id number] 09/18/2020 09:39:00 AM EST JEFF ([facility]) Name Value Range Interpretation Code Description Data Becky rce(s) Supporting Document(s) blood urea nitrogen 19 mg/dL 7-18 Above high normal Blood Ure a Nitrogen JEFF ([facility]) glucose, fasting 145 mg/dL 70-100 Above high normal Glucose, Fas ting JEFF ([facility]) creatinine for GFR 1.20 mg/dL 0.70-1.30 Creatinine for GF R JEFF ([facility]) glomerular filtration rate > 60.0 >60 Glomerula r Filtration Rate JEFF ([facility]) sodium level 137 mEq/L 136-145 Sodium Level JEFF (No [facility]) chloride level 103 mEq/L 98-107 Chloride Level JEFF ([facility]) potassium serum 4.1 mEq/L 3.5-5.1 Potassium Serum ATHE NA ([facility]) anion gap 5 mEq/L 8-16 Below low normal Anion Gap JEFF ( [facility]) calcium level 9.0 mg/dL 8.5-10.1 Calcium Level JEFF ( [facility]) carbon dioxide level 29 mEq/L 21-32 Carbon Dioxide Level JEFF ([facility]) AST/SGOT 16 U/L 7-37 AST/SGOT JEFF ([facility]) ALT/SGPT 38 U/L 12-78 ALT/SGPT JEFF ([facility]) alkaline phosphatase 82 U/L 45-117 Alkaline Phosph atase JEFF ([facility]) total protein 7.6 gm/dL 6.4-8.2 Total Protein JEFF ( [facility]) bilirubin,total 0.4 mg/dL 0.2-1.0 Bilirubin,total ATHE ([facility]) albumin/globulin ratio Albumin/globu bianca Ratio JEFF ([facility]) albumin 4.0 gm/dL 3.2-5.2 Albumin JEFF ([facility]) ID Date Data Source [id number] 09/18/2020 09:39:00 AM EST JEFF ([facility]) Name Value Range Interpretation Code Description Data Becky rce(s) Supporting Document(s) cholesterol level 211 mg/dL <200 Above high normal Cholesterol Level JEFF ([facility]) triglycerides level 677 mg/dL <150 Above high normal Triglycer ides Level JEFF ([facility]) cholesterol risk ratio <5 Above high normal Choles terol Risk Ratio JEFF ([facility]) non-HDL-C 179 mg/dL Non-hdl-c JEFF ([facility]) HDL cholesterol 32 mg/dL >40 Below low normal HDL Cholestero l JEFF ([facility]) ID Date Data Source [id number] 09/18/2020 09:39:00 AM EST JEFF ([facility]) Name Value Range Interpretation Code Description Data Becky rce(s) Supporting Document(s) glucose, fasting 145 mg/dL 70-100 Above high normal Glucose, Fas ting JEFF ([facility]) creatinine for GFR 1.20 mg/dL 0.70-1.30 Creatinine for GF R JEFF ([facility]) blood urea nitrogen 19 mg/dL 7-18 Above high normal Blood Ure a Nitrogen JEFF ([facility]) potassium serum 4.1 mEq/L 3.5-5.1 Potassium Serum ATHE NA ([facility]) sodium level 137 mEq/L 136-145 Sodium Level JEFF (No [facility]) glomerular filtration rate > 60.0 >60 Glomerula r Filtration Rate JEFF ([facility]) carbon dioxide level 29 mEq/L 21-32 Carbon Dioxide Level JEFF ([facility]) chloride level 103 mEq/L 98-107 Chloride Level JEFF ([facility]) anion gap 5 mEq/L 8-16 Below low normal Anion Gap JEFF ( [facility]) ALT/SGPT 38 U/L 12-78 ALT/SGPT JEFF ([facility]) calcium level 9.0 mg/dL 8.5-10.1 Calcium Level JEFF ( [facility]) AST/SGOT 16 U/L 7-37 AST/SGOT JEFF ([facility]) alkaline phosphatase 82 U/L 45-117 Alkaline Phosph atase JEFF ([facility]) total protein 7.6 gm/dL 6.4-8.2 Total Protein JEFF ( [facility]) bilirubin,total 0.4 mg/dL 0.2-1.0 Bilirubin,total ATHE NA ([facility]) albumin/globulin ratio Albumin/globu bianca Ratio JEFF ([facility]) albumin 4.0 gm/dL 3.2-5.2 Albumin JEFF ([facility]) ID Date Data Source [id number] 09/18/2020 09:39:00 AM EST JEFF ([facility]) Name Value Range Interpretation Code Description Data Becky rce(s) Supporting Document(s) triglycerides level 677 mg/dL <150 Above high normal Triglycer ides Level JEFF ([facility]) cholesterol level 211 mg/dL <200 Above high normal Cholesterol Level JEFF ([facility]) HDL cholesterol 32 mg/dL >40 Below low normal HDL Cholestero l JEFF ([facility]) cholesterol risk ratio <5 Above high normal Choles terol Risk Ratio JEFF ([facility]) non-HDL-C 179 mg/dL Non-hdl-c JEFF ([facility]) ID Date Data Source [id number] 09/18/2020 09:39:00 AM EST JEFF ([facility]) Name Value Range Interpretation Code Description Data Becky rce(s) Supporting Document(s) blood urea nitrogen 19 mg/dL 7-18 Above high normal Blood Ure a Nitrogen JEFF ([facility]) glucose, fasting 145 mg/dL 70-100 Above high normal Glucose, Fas ting JEFF ([facility]) glomerular filtration rate > 60.0 >60 Glomerula r Filtration Rate JEFF ([facility]) creatinine for GFR 1.20 mg/dL 0.70-1.30 Creatinine for GF R JEFF ([facility]) sodium level 137 mEq/L 136-145 Sodium Level JEFF ([facility]) potassium serum 4.1 mEq/L 3.5-5.1 Potassium Serum ATHE ([facility]) carbon dioxide level 29 mEq/L 21-32 Carbon Dioxide Level JEFF ([facility]) anion gap 5 mEq/L 8-16 Below low normal Anion Gap JEFF ( [facility]) chloride level 103 mEq/L 98-107 Chloride Level JEFF ([facility]) calcium level 9.0 mg/dL 8.5-10.1 Calcium Level JEFF ( [facility]) AST/SGOT 16 U/L 7-37 AST/SGOT JEFF ([facility]) ALT/SGPT 38 U/L 12-78 ALT/SGPT JEFF ([facility]) total protein 7.6 gm/dL 6.4-8.2 Total Protein JEFF ( [facility]) bilirubin,total 0.4 mg/dL 0.2-1.0 Bilirubin,total ATHE NA ([facility]) alkaline phosphatase 82 U/L 45-117 Alkaline Phosph atase JEFF ([facility]) albumin/globulin ratio Albumin/globu bianca Ratio JEFF ([facility]) albumin 4.0 gm/dL 3.2-5.2 Albumin JEFF ([facility]) ID Date Data Source [id number] 08/17/2020 03:43:00 PM EST MEDENT ([facility]) Name Value Range Interpretation Code Description Data Becky rce(s) Supporting Document(s) Hemoglobin A1c/Hemoglobin.total in Blood 8.8 MEDENT ([facility]) Glucose [Mass/volume] in Serum or Plasma 277 MEDENT ([facility]) ID Date Data Source [id number] 08/09/2020 02:13:00 PM EDT JEFF ([facility]) Name Value Range Interpretation Code Description Data Becky rce(s) Supporting Document(s) color, urine yellow yellow Color, Urine JEFF ([facility]) appearance, urine clear clear Appearance, Urine JEFF ([facility]) pH,urine 5.0 units 5.0-9.0 pH,urine JEFF ([facility]) protein, urine auto negative negative Protein, Urine A meo OKEMOS ([facility]) urobilinogen, urine auto 0.2 mg/dL 0.0-2.0 Urobilinoge n, Urine Auto JEFF ([facility]) ketone, urine auto negative negative Ketone, Urine Aut o JEFF ([facility]) glucose, urine (UA) auto 3+ negative Above high normal Gluc ose, Urine (UA) Auto JEFF ([facility]) specific gravity urine auto 1.002-1.035 Specifi c Pegram Urine Auto JEFF ([facility]) blood, urine blood negative negative Blood, Urine Bloo d JEFF ([facility]) nitrite, urine auto negative negative Nitrite, Urine A uto JEFF ([facility]) bilirubin, urine auto negative negative Bilirubin, Uri ne Auto JEFF ([facility]) leukocyte esterase, urine auto negative negative Leukocyte Esterase, Urine Auto JEFF ([facility]) RBC, urine auto 2 /hpf 0-3 RBC, Urine Auto ATHE NA ([facility]) bacteria, urine auto negative negative Bacteria, Urine Auto JEFF ([facility]) squamous epithelial cell ur AU 0 /hpf 0-6 Squam ous Epithelial Cell Ur AU JEFF ([facility]) hyaline cast, urine auto 0 /lpf 0-1 Hyaline Maximilian t, Urine Auto JEFF ([facility]) WBC, urine auto 0 /hpf 0-3 WBC, Urine Auto ATHE NA ([facility]) ID Date Data Source [id number] 08/09/2020 02:13:00 PM EDT OKEMOS ([facility]) Name Value Range Interpretation Code Description Data Becky rce(s) Supporting Document(s) appearance, urine clear clear Appearance, Urine JEFF ([facility]) color, urine yellow yellow Color, Urine JEFF (No [facility]) pH,urine 5.0 units 5.0-9.0 pH,urine JEFF ([facility]) protein, urine auto negative negative Protein, Urine A meo OKEMOS ([facility]) specific gravity urine auto 1.002-1.035 Specifi c Pegram Urine Auto JEFF ([facility]) glucose, urine (UA) auto 3+ negative Above high normal Gluc ose, Urine (UA) Auto JEFF ([facility]) bilirubin, urine auto negative negative Bilirubin, Uri ne Auto JEFF ([facility]) ketone, urine auto negative negative Ketone, Urine Aut o JEFF ([facility]) urobilinogen, urine auto 0.2 mg/dL 0.0-2.0 Urobilinoge n, Urine Auto JEFF ([facility]) nitrite, urine auto negative negative Nitrite, Urine A uto JEFF ([facility]) leukocyte esterase, urine auto negative negative Leukocyte Esterase, Urine Auto JEFF ([facility]) WBC, urine auto 0 /hpf 0-3 WBC, Urine Auto ATHE NA ([facility]) bacteria, urine auto negative negative Bacteria, Urine Auto JEFF ([facility]) blood, urine blood negative negative Blood, Urine Bloo d JEFF ([facility]) RBC, urine auto 2 /hpf 0-3 RBC, Urine Auto ATHE NA ([facility]) hyaline cast, urine auto 0 /lpf 0-1 Hyaline Maximilian t, Urine Auto JEFF ([facility]) squamous epithelial cell ur AU 0 /hpf 0-6 Squam ous Epithelial Cell Ur AU JEFF ([facility]) ID Date Data Source [id number] 08/09/2020 02:13:00 PM EDT JEFF ([facility]) Name Value Range Interpretation Code Description Data Becky rce(s) Supporting Document(s) appearance, urine clear clear Appearance, Urine JEFF ([facility]) pH,urine 5.0 units 5.0-9.0 pH,urine JEFF ([facility]) color, urine yellow yellow Color, Urine JEFF (No [facility]) specific gravity urine auto 1.002-1.035 Specifi c Pegram Urine Auto JEFF ([facility]) ketone, urine auto negative negative Ketone, Urine Aut o JEFF ([facility]) protein, urine auto negative negative Protein, Urine A uto JEFF ([facility]) glucose, urine (UA) auto 3+ negative Above high normal Gluc ose, Urine (UA) Auto JEFF ([facility]) leukocyte esterase, urine auto negative negative Leukocyte Esterase, Urine Auto JEFF ([facility]) bilirubin, urine auto negative negative Bilirubin, Uri ne Auto JEFF ([facility]) nitrite, urine auto negative negative Nitrite, Urine A uto JEFF ([facility]) urobilinogen, urine auto 0.2 mg/dL 0.0-2.0 Urobilinoge n, Urine Auto JEFF ([facility]) blood, urine blood negative negative Blood, Urine Bloo d JEFF ([facility]) WBC, urine auto 0 /hpf 0-3 WBC, Urine Auto ATHE NA ([facility]) bacteria, urine auto negative negative Bacteria, Urine Auto JEFF ([facility]) RBC, urine auto 2 /hpf 0-3 RBC, Urine Auto ATHE NA ([facility]) squamous epithelial cell ur AU 0 /hpf 0-6 Squam ous Epithelial Cell Ur AU JEFF ([facility]) hyaline cast, urine auto 0 /lpf 0-1 Hyaline Maximilian t, Urine Auto JEFF ([facility]) ID Date Data Source [id number] 08/09/2020 02:13:00 PM EDT EJFF ([facility]) Name Value Range Interpretation Code Description Data Becky rce(s) Supporting Document(s) appearance, urine clear clear Appearance, Urine JEFF ([facility]) color, urine yellow yellow Color, Urine JEFF ([facility]) glucose, urine (UA) auto 3+ negative Above high normal Gluc ose, Urine (UA) Auto JEFF ([facility]) specific gravity urine auto 1.002-1.035 Specifi c Pegram Urine Auto JEFF ([facility]) protein, urine auto negative negative Protein, Urine A uto JEFF ([facility]) pH,urine 5.0 units 5.0-9.0 pH,urine JEFF ([facility]) ketone, urine auto negative negative Ketone, Urine Aut o JEFF ([facility]) urobilinogen, urine auto 0.2 mg/dL 0.0-2.0 Urobilinoge n, Urine Auto JEFF ([facility]) bilirubin, urine auto negative negative Bilirubin, Uri ne Auto JEFF ([facility]) nitrite, urine auto negative negative Nitrite, Urine A uto JEFF ([facility]) blood, urine blood negative negative Blood, Urine Bloo d JEFF ([facility]) leukocyte esterase, urine auto negative negative Leukocyte Esterase, Urine Auto JEFF ([facility]) bacteria, urine auto negative negative Bacteria, Urine Auto JEFF ([facility]) RBC, urine auto 2 /hpf 0-3 RBC, Urine Auto ATHE NA ([facility]) squamous epithelial cell ur AU 0 /hpf 0-6 Squam ous Epithelial Cell Ur AU JEFF ([facility]) WBC, urine auto 0 /hpf 0-3 WBC, Urine Auto ATHE NA ([facility]) hyaline cast, urine auto 0 /lpf 0-1 Hyaline Maximilian t, Urine Auto JEFF ([facility]) ID Date Data Source [id number] 08/09/2020 02:13:00 PM EDT JEFF ([facility]) Name Value Range Interpretation Code Description Data Becky rce(s) Supporting Document(s) pH,urine 5.0 units 5.0-9.0 pH,urine JEFF ([facility]) specific gravity urine auto 1.002-1.035 Specifi c Pegram Urine Auto JEFF ([facility]) appearance, urine clear clear Appearance, Urine JEFF ([facility]) color, urine yellow yellow Color, [facility]rine [facility] protein, urine auto negative negative Protein, Urine A uto JEFF ([facility]) ketone, urine auto negative negative Ketone, Urine Aut o JEFF ([facility]) urobilinogen, urine auto 0.2 mg/dL 0.0-2.0 Urobilinoge n, Urine Auto JEFF ([facility]) glucose, urine (UA) auto 3+ negative Above high normal Gluc ose, Urine (UA) Auto JEFF ([facility]) blood, urine blood negative negative Blood, Urine Bloo d JEFF ([facility]) nitrite, urine auto negative negative Nitrite, Urine A uto JEFF ([facility]) bilirubin, urine auto negative negative Bilirubin, Uri ne Auto JEFF ([facility]) WBC, urine auto 0 /hpf 0-3 WBC, Urine Auto ATHE NA ([facility]) leukocyte esterase, urine auto negative negative Leukocyte Esterase, Urine Auto JEFF ([facility]) RBC, urine auto 2 /hpf 0-3 RBC, Urine Auto ATHE NA ([facility]) hyaline cast, urine auto 0 /lpf 0-1 Hyaline Maximilian t, Urine Auto JEFF ([facility]) bacteria, urine auto negative negative Bacteria, Urine Auto JEFF ([facility]) squamous epithelial cell ur AU 0 /hpf 0-6 Squam ous Epithelial Cell Ur AU JEFF ([facility]) ID Date Data Source [id number] 08/09/2020 02:13:00 PM EDT JEFF ([facility]) Name Value Range Interpretation Code Description Data Becky rce(s) Supporting Document(s) appearance, urine clear clear Appearance, Urine JEFF ([facility]) specific gravity urine auto 1.002-1.035 Specifi c Pegram Urine Auto JEFF ([facility]) pH,urine 5.0 units 5.0-9.0 pH,urine JEFF ([facility]) color, urine yellow yellow Color, Urine JEFF (No [facility]) protein, urine auto negative negative Protein, Urine A uto JEFF ([facility]) urobilinogen, urine auto 0.2 mg/dL 0.0-2.0 Urobilinoge n, Urine Auto JEFF ([facility]) glucose, urine (UA) auto 3+ negative Above high normal Gluc ose, Urine (UA) Auto JEFF ([facility]) ketone, urine auto negative negative Ketone, Urine Aut o JEFF ([facility]) blood, urine blood negative negative Blood, Urine Bloo d JEFF ([facility]) nitrite, urine auto negative negative Nitrite, Urine A uto JEFF ([facility]) leukocyte esterase, urine auto negative negative Leukocyte Esterase, Urine Auto JEFF ([facility]) bilirubin, urine auto negative negative Bilirubin, Uri ne Auto JEFF ([facility]) squamous epithelial cell ur AU 0 /hpf 0-6 Squam ous Epithelial Cell Ur AU JEFF ([facility]) bacteria, urine auto negative negative Bacteria, Urine Auto JEFF ([facility]) WBC, urine auto 0 /hpf 0-3 WBC, Urine Auto ATHE NA ([facility]) hyaline cast, urine auto 0 /lpf 0-1 Hyaline Maximilian t, Urine Auto JEFF ([facility]) RBC, urine auto 2 /hpf 0-3 RBC, Urine Auto ATHE NA ([facility]) ID Date Data Source [id number] 08/09/2020 02:13:00 PM EDT JEFF ([facility]) Name Value Range Interpretation Code Description Data Becky rce(s) Supporting Document(s) color, urine yellow yellow Color, Urine JEFF ([facility]) appearance, urine clear clear Appearance, Urine JEFF ([facility]) protein, urine auto negative negative Protein, Urine A uto JEFF ([facility]) pH,urine 5.0 units 5.0-9.0 pH,urine JEFF ([facility]) glucose, urine (UA) auto 3+ negative Above high normal Gluc ose, Urine (UA) Auto JEFF ([facility]) specific gravity urine auto 1.002-1.035 Specifi c Pegram Urine Auto JEFF ([facility]) bilirubin, urine auto negative negative Bilirubin, Uri ne Auto JEFF ([facility]) leukocyte esterase, urine auto negative negative Leukocyte Esterase, Urine Auto JEFF ([facility]) ketone, urine auto negative negative Ketone, Urine Aut o JEFF ([facility]) nitrite, urine auto negative negative Nitrite, Urine A uto JEFF ([facility]) urobilinogen, urine auto 0.2 mg/dL 0.0-2.0 Urobilinoge n, Urine Auto JEFF ([facility]) bacteria, urine auto negative negative Bacteria, Urine Auto JEFF ([facility]) blood, urine blood negative negative Blood, Urine Bloo d JEFF ([facility]) squamous epithelial cell ur AU 0 /hpf 0-6 Squam ous Epithelial Cell Ur AU JEFF ([facility]) RBC, urine auto 2 /hpf 0-3 RBC, Urine Auto ATHE NA ([facility]) WBC, urine auto 0 /hpf 0-3 WBC, Urine Auto ATHE NA ([facility]) hyaline cast, urine auto 0 /lpf 0-1 Hyaline Maximilian t, Urine Auto JEFF ([facility]) ID Date Data Source [id number] 08/09/2020 02:13:00 PM EDT [place] ([facility]) Name Value Range Interpretation Code Description Data Becky rce(s) Supporting Document(s) pH,urine 5.0 units 5.0-9.0 pH,urine JEFF ([facility]) specific gravity urine auto 1.002-1.035 Specifi c Pegram Urine Auto JEFF ([facility]) color, urine yellow yellow Color, Urine JEFF (No [facility]) appearance, urine clear clear Appearance, Urine JEFF ([facility]) urobilinogen, urine auto 0.2 mg/dL 0.0-2.0 Urobilinoge n, Urine Auto JEFF ([facility]) glucose, urine (UA) auto 3+ negative Above high normal Gluc ose, Urine (UA) Auto JEFF ([facility]) ketone, urine auto negative negative Ketone, Urine Aut o JEFF ([facility]) protein, urine auto negative negative Protein, Urine A uto JEFF ([facility]) bilirubin, urine auto negative negative Bilirubin, Uri ne Auto JEFF ([facility]) WBC, urine auto 0 /hpf 0-3 WBC, Urine Auto ATHE NA ([facility]) leukocyte esterase, urine auto negative negative Leukocyte Esterase, Urine Auto JEFF ([facility]) nitrite, urine auto negative negative Nitrite, Urine A uto JEFF ([facility]) blood, urine blood negative negative Blood, Urine Bloo d JEFF ([facility]) squamous epithelial cell ur AU 0 /hpf 0-6 Squam ous Epithelial Cell Ur AU JEFF ([facility]) bacteria, urine auto negative negative Bacteria, Urine Auto JEFF ([facility]) RBC, urine auto 2 /hpf 0-3 RBC, Urine Auto ATHE NA ([facility]) hyaline cast, urine auto 0 /lpf 0-1 Hyaline Maximilian t, Urine Auto JEFF ([facility]) ID Date Data Source [id number] 08/09/2020 02:13:00 PM EDT JEFF ([facility]) Name Value Range Interpretation Code Description Data Becky rce(s) Supporting Document(s) pH,urine 5.0 units 5.0-9.0 pH,urine JEFF ([facility]) appearance, urine clear clear Appearance, Urine JEFF ([facility]) color, urine yellow yellow Color, Urine JEFF (No [facility]) specific gravity urine auto 1.002-1.035 Specifi c Pegram Urine Auto JEFF ([facility]) protein, urine auto negative negative Protein, Urine A uto JEFF ([facility]) urobilinogen, urine auto 0.2 mg/dL 0.0-2.0 Urobilinoge n, Urine Auto JEFF ([facility]) glucose, urine (UA) auto 3+ negative Above high normal Gluc ose, Urine (UA) Auto JEFF ([facility]) ketone, urine auto negative negative Ketone, Urine Aut o JEFF ([facility]) WBC, urine auto 0 /hpf 0-3 WBC, Urine Auto ATHE NA ([facility]) blood, urine blood negative negative Blood, Urine Bloo d JEFF ([facility]) leukocyte esterase, urine auto negative negative Leukocyte Esterase, Urine Auto JEFF ([facility]) bilirubin, urine auto negative negative Bilirubin, Uri ne Auto JEFF ([facility]) nitrite, urine auto negative negative Nitrite, Urine A uto JEFF ([facility]) RBC, urine auto 2 /hpf 0-3 RBC, Urine Auto ATHE NA ([facility]) bacteria, urine auto negative negative Bacteria, Urine Auto JEFF ([facility]) hyaline cast, urine auto 0 /lpf 0-1 Hyaline Maximilian t, Urine Auto JEFF ([facility]) squamous epithelial cell ur AU 0 /hpf 0-6 Squam ous Epithelial Cell Ur AU JEFF ([facility]) ID Date Data Source [id number] 08/09/2020 02:13:00 PM EDT JEFF ([facility]) Name Value Range Interpretation Code Description Data Becky rce(s) Supporting Document(s) color, urine yellow yellow Color, Urine JEFF (No [facility]) appearance, urine clear clear Appearance, Urine JEFF ([facility]) pH,urine 5.0 units 5.0-9.0 pH,urine JEFF ([facility]) protein, urine auto negative negative Protein, Urine A uto JEFF ([facility]) specific gravity urine auto 1.002-1.035 Specifi c Pegram Urine Auto JEFF ([facility]) ketone, urine auto negative negative Ketone, Urine Aut o JEFF ([facility]) glucose, urine (UA) auto 3+ negative Above high normal Gluc ose, Urine (UA) Auto JEFF ([facility]) urobilinogen, urine auto 0.2 mg/dL 0.0-2.0 Urobilinoge n, Urine Auto JEFF ([facility]) leukocyte esterase, urine auto negative negative Leukocyte Esterase, Urine Auto JEFF ([facility]) nitrite, urine auto negative negative Nitrite, Urine A uto JEFF ([facility]) blood, urine blood negative negative Blood, Urine Bloo d JEFF ([facility]) bilirubin, urine auto negative negative Bilirubin, Uri ne Auto JEFF ([facility]) WBC, urine auto 0 /hpf 0-3 WBC, Urine Auto ATHE NA ([facility]) RBC, urine auto 2 /hpf 0-3 RBC, Urine Auto ATHE NA ([facility]) hyaline cast, urine auto 0 /lpf 0-1 Hyaline Maximilian t, Urine Auto JEFF ([facility]) squamous epithelial cell ur AU 0 /hpf 0-6 Squam ous Epithelial Cell Ur AU JEFF ([facility]) bacteria, urine auto negative negative Bacteria, Urine Auto JEFF ([facility]) ID Date Data Source [id number] 08/09/2020 02:13:00 PM EDT JEFF ([facility]) Name Value Range Interpretation Code Description Data Becky rce(s) Supporting Document(s) specific gravity urine auto 1.002-1.035 Specifi c Pegram Urine Auto JEFF ([facility]) pH,urine 5.0 units 5.0-9.0 pH,urine JEFF ([facility]) appearance, urine clear clear Appearance, Urine JEFF ([facility]) color, urine yellow yellow Color, Urine JEFF (No [facility]) bilirubin, urine auto negative negative Bilirubin, Uri ne Auto JEFF ([facility]) ketone, urine auto negative negative Ketone, Urine Aut o JEFF ([facility]) protein, urine auto negative negative Protein, Urine A uto JEFF ([facility]) glucose, urine (UA) auto 3+ negative Above high normal Gluc ose, Urine (UA) Auto JEFF ([facility]) urobilinogen, urine auto 0.2 mg/dL 0.0-2.0 Urobilinoge n, Urine Auto JEFF ([facility]) leukocyte esterase, urine auto negative negative Leukocyte Esterase, Urine Auto JEFF ([facility]) WBC, urine auto 0 /hpf 0-3 WBC, Urine Auto ATHE NA ([facility]) nitrite, urine auto negative negative Nitrite, Urine A uto JEFF ([facility]) blood, urine blood negative negative Blood, Urine Bloo d JEFF ([facility]) squamous epithelial cell ur AU 0 /hpf 0-6 Squam ous Epithelial Cell Ur AU JEFF ([facility]) RBC, urine auto 2 /hpf 0-3 RBC, Urine Auto ATHE NA ([facility]) hyaline cast, urine auto 0 /lpf 0-1 Hyaline Maximilian t, Urine Auto JEFF ([facility]) bacteria, urine auto negative negative Bacteria, Urine Auto JEFF ([facility]) ID Date Data Source [id number] 08/09/2020 02:13:00 PM EDT JEFF ([facility]) Name Value Range Interpretation Code Description Data Becky rce(s) Supporting Document(s) color, urine yellow yellow Color, Urine JEFF (No [facility]) specific gravity urine auto 1.002-1.035 Specifi c Pegram Urine Auto JEFF ([facility]) appearance, urine clear clear Appearance, Urine JEFF ([facility]) pH,urine 5.0 units 5.0-9.0 pH,urine JEFF ([facility]) protein, urine auto negative negative Protein, Urine A uto JEFF ([facility]) ketone, urine auto negative negative Ketone, Urine Aut o JEFF ([facility]) glucose, urine (UA) auto 3+ negative Above high normal Gluc ose, Urine (UA) Auto JEFF ([facility]) urobilinogen, urine auto 0.2 mg/dL 0.0-2.0 Urobilinoge n, Urine Auto JEFF ([facility]) bilirubin, urine auto negative negative Bilirubin, Uri ne Auto JEFF ([facility]) RBC, urine auto 2 /hpf 0-3 RBC, Urine Auto ATHE NA ([facility]) WBC, urine auto 0 /hpf 0-3 WBC, Urine Auto ATHE NA ([facility]) leukocyte esterase, urine auto negative negative Leukocyte Esterase, Urine Auto JEFF ([facility]) blood, urine blood negative negative Blood, Urine Bloo d JEFF ([facility]) nitrite, urine auto negative negative Nitrite, Urine A uto JEFF ([facility]) hyaline cast, urine auto 0 /lpf 0-1 Hyaline Maximilian t, Urine Auto JEFF ([facility]) bacteria, urine auto negative negative Bacteria, Urine Auto JEFF ([facility]) squamous epithelial cell ur AU 0 /hpf 0-6 Squam ous Epithelial Cell Ur AU JEFF ([facility]) ID Date Data Source [id number] 08/09/2020 02:13:00 PM EDT JEFF ([facility]) Name Value Range Interpretation Code Description Data Becky rce(s) Supporting Document(s) pH,urine 5.0 units 5.0-9.0 pH,urine JEFF ([facility]) appearance, urine clear clear Appearance, Urine JEFF ([facility]) color, urine yellow yellow Color, Urine JEFF (No [facility]) specific gravity urine auto 1.002-1.035 Specifi c Pegram Urine Auto JEFF ([facility]) glucose, urine (UA) auto 3+ negative Above high normal Gluc ose, Urine (UA) Auto JEFF ([facility]) protein, urine auto negative negative Protein, Urine A uto JEFF ([facility]) ketone, urine auto negative negative Ketone, Urine Aut o JEFF ([facility]) urobilinogen, urine auto 0.2 mg/dL 0.0-2.0 Urobilinoge n, Urine Auto JEFF ([facility]) blood, urine blood negative negative Blood, Urine Bloo d JEFF ([facility]) leukocyte esterase, urine auto negative negative Leukocyte Esterase, Urine Auto JEFF ([facility]) bilirubin, urine auto negative negative Bilirubin, Uri ne Auto JEFF ([facility]) nitrite, urine auto negative negative Nitrite, Urine A uto JEFF ([facility]) WBC, urine auto 0 /hpf 0-3 WBC, Urine Auto ATHE NA ([facility]) hyaline cast, urine auto 0 /lpf 0-1 Hyaline Maximilian t, Urine Auto JEFF ([facility]) squamous epithelial cell ur AU 0 /hpf 0-6 Squam ous Epithelial Cell Ur AU JEFF ([facility]) RBC, urine auto 2 /hpf 0-3 RBC, Urine Auto ATHE NA ([facility]) bacteria, urine auto negative negative Bacteria, Urine Auto JEFF ([facility]) ID Date Data Source [id number] 08/09/2020 02:13:00 PM EDT JEFF ([facility]) Name Value Range Interpretation Code Description Data Becky rce(s) Supporting Document(s) appearance, urine clear clear Appearance, Urine JEFF ([facility]) color, urine yellow yellow Color, Urine JEFF (No [facility]) specific gravity urine auto 1.002-1.035 Specifi c Pegram Urine Auto JEFF ([facility]) glucose, urine (UA) auto 3+ negative Above high normal Gluc ose, Urine (UA) Auto JEFF ([facility]) protein, urine auto negative negative Protein, Urine A uto JEFF ([facility]) pH,urine 5.0 units 5.0-9.0 pH,urine JEFF ([facility]) nitrite, urine auto negative negative Nitrite, Urine A uto JEFF ([facility]) ketone, urine auto negative negative Ketone, Urine Aut o JEFF ([facility]) urobilinogen, urine auto 0.2 mg/dL 0.0-2.0 Urobilinoge n, Urine Auto JEFF ([facility]) leukocyte esterase, urine auto negative negative Leukocyte Esterase, Urine Auto JEFF ([facility]) bilirubin, urine auto negative negative Bilirubin, Uri ne Auto JEFF ([facility]) RBC, urine auto 2 /hpf 0-3 RBC, Urine Auto ATHE NA ([facility]) blood, urine blood negative negative Blood, Urine Bloo d JEFF ([facility]) bacteria, urine auto negative negative Bacteria, Urine Auto JEFF ([facility]) WBC, urine auto 0 /hpf 0-3 WBC, Urine Auto ATHE NA ([facility]) squamous epithelial cell ur AU 0 /hpf 0-6 Squam ous Epithelial Cell Ur AU JEFF ([facility]) hyaline cast, urine auto 0 /lpf 0-1 Hyaline Maximilian t, Urine Auto JEFF ([facility]) ID Date Data Source [id number] 08/09/2020 02:13:00 PM EDT JEFF ([facility]) Name Value Range Interpretation Code Description Data Becky rce(s) Supporting Document(s) appearance, urine clear clear Appearance, Urine JEFF ([facility]) color, urine yellow yellow Color, Urine JEFF (No [facility]) protein, urine auto negative negative Protein, Urine A uto JEFF ([facility]) pH,urine 5.0 units 5.0-9.0 pH,urine JEFF ([facility]) specific gravity urine auto 1.002-1.035 Specifi c Pegram Urine Auto JEFF ([facility]) glucose, urine (UA) auto 3+ negative Above high normal Gluc ose, Urine (UA) Auto JEFF ([facility]) urobilinogen, urine auto 0.2 mg/dL 0.0-2.0 Urobilinoge n, Urine Auto JEFF ([facility]) ketone, urine auto negative negative Ketone, Urine Aut o JEFF ([facility]) bilirubin, urine auto negative negative Bilirubin, Uri ne Auto JEFF ([facility]) nitrite, urine auto negative negative Nitrite, Urine A uto JEFF ([facility]) blood, urine blood negative negative Blood, Urine Bloo d JEFF ([facility]) WBC, urine auto 0 /hpf 0-3 WBC, Urine Auto ATHE NA ([facility]) leukocyte esterase, urine auto negative negative Leukocyte Esterase, Urine Auto JEFF ([facility]) RBC, urine auto 2 /hpf 0-3 RBC, Urine Auto ATHE NA ([facility]) hyaline cast, urine auto 0 /lpf 0-1 Hyaline Maximilian t, Urine Auto JEFF ([facility]) squamous epithelial cell ur AU 0 /hpf 0-6 Squam ous Epithelial Cell Ur AU JEFF ([facility]) bacteria, urine auto negative negative Bacteria, Urine Auto JEFF ([facility]) ID Date Data Source [id number] 08/09/2020 02:13:00 PM EDT JEFF ([facility]) Name Value Range Interpretation Code Description Data Becky rce(s) Supporting Document(s) appearance, urine clear clear Appearance, Urine JEFF ([facility]) pH,urine 5.0 units 5.0-9.0 pH,urine JEFF ([facility]) specific gravity urine auto 1.002-1.035 Specifi c Pegram Urine Auto JEFF ([facility]) color, urine yellow yellow Color, Urine [facility] urobilinogen, urine auto 0.2 mg/dL 0.0-2.0 Urobilinoge n, Urine Auto JEFF ([facility]) glucose, urine (UA) auto 3+ negative Above high normal Gluc ose, Urine (UA) Auto JEFF ([facility]) ketone, urine auto negative negative Ketone, Urine Aut o JEFF ([facility]) protein, urine auto negative negative Protein, Urine A uto JEFF ([facility]) blood, urine blood negative negative Blood, Urine Bloo d JEFF ([facility]) bilirubin, urine auto negative negative Bilirubin, Uri ne Auto JEFF ([facility]) leukocyte esterase, urine auto negative negative Leukocyte Esterase, Urine Auto JEFF ([facility]) nitrite, urine auto negative negative Nitrite, Urine A uto JEFF ([facility]) bacteria, urine auto negative negative Bacteria, Urine Auto JEFF ([facility]) hyaline cast, urine auto 0 /lpf 0-1 Hyaline Maximilian t, Urine Auto JEFF ([facility]) squamous epithelial cell ur AU 0 /hpf 0-6 Squam ous Epithelial Cell Ur AU JEFF ([facility]) WBC, urine auto 0 /hpf 0-3 WBC, Urine Auto ATHE NA ([facility]) RBC, urine auto 2 /hpf 0-3 RBC, Urine Auto ATHE NA ([facility]) ID Date Data Source [id number] 08/09/2020 02:13:00 PM EDT JEFF ([facility]) Name Value Range Interpretation Code Description Data Becky rce(s) Supporting Document(s) appearance, urine clear clear Appearance, Urine JEFF ([facility]) color, urine yellow yellow Color, Urine JEFF (No [facility]) pH,urine 5.0 units 5.0-9.0 pH,urine JEFF ([facility]) protein, urine auto negative negative Protein, Urine A uto JEFF ([facility]) ketone, urine auto negative negative Ketone, Urine Aut o JEFF ([facility]) specific gravity urine auto 1.002-1.035 Specifi c Pegram Urine Auto JEFF ([facility]) glucose, urine (UA) auto 3+ negative Above high normal Gluc ose, Urine (UA) Auto JEFF ([facility]) blood, urine blood negative negative Blood, Urine Bloo d JEFF ([facility]) nitrite, urine auto negative negative Nitrite, Urine A uto JEFF ([facility]) bilirubin, urine auto negative negative Bilirubin, Uri ne Auto JEFF ([facility]) urobilinogen, urine auto 0.2 mg/dL 0.0-2.0 Urobilinoge n, Urine Auto JEFF ([facility]) leukocyte esterase, urine auto negative negative Leukocyte Esterase, Urine Auto JEFF ([facility]) bacteria, urine auto negative negative Bacteria, Urine Auto JEFF ([facility]) WBC, urine auto 0 /hpf 0-3 WBC, Urine Auto ATHE NA ([facility]) RBC, urine auto 2 /hpf 0-3 RBC, Urine Auto ATHE NA ([facility]) squamous epithelial cell ur AU 0 /hpf 0-6 Squam ous Epithelial Cell Ur AU JEFF ([facility]) hyaline cast, urine auto 0 /lpf 0-1 Hyaline Maximilian t, Urine Auto JEFF ([facility]) ID Date Data Source [id number] 08/09/2020 12:40:00 PM EDT [facility] ([facility]) Name Value Range Interpretation Code Description Data Becky rce(s) Supporting Document(s) Hemoglobin A1c/Hemoglobin.total in Blood 8.6 % Hemoglobin a1C [facility]OS ([facility]) estimated average glucose 200 mg/dL 60-110 Above high norm al Estimated Average Glucose [facility]OS ([facility]) ID Date Data Source [id number] 08/09/2020 12:40:00 PM EDT [facility] ([facility]) Name Value Range Interpretation Code Description Data Becky rce(s) Supporting Document(s) acetone/ketone 1.22 mg/dL <2.81 Acetone/ketone [facility] ([facility]) ID Date Data Source [id number] 08/09/2020 12:40:00 PM EDT [facility] ([facility]) Name Value Range Interpretation Code Description Data Becky rce(s) Supporting Document(s) blood urea nitrogen 16 mg/dL 7-18 Blood Urea Nitro gen JEFF ([facility]) glucose, fasting 210 mg/dL 70-100 Above high normal Glucose, Fas ting JEFF ([facility]) sodium level 135 mEq/L 136-145 Below low normal Sodium Level ATHE ([facility]) glomerular filtration rate > 60.0 >60 Glomerula r Filtration Rate JEFF ([facility]) creatinine for GFR 1.03 mg/dL 0.70-1.30 Creatinine for GF R JEFF ([facility]) chloride level 101 mEq/L 98-107 Chloride Level JEFF ([facility]) potassium serum 4.0 mEq/L 3.5-5.1 Potassium Serum ATHE NA ([facility]) carbon dioxide level 28 mEq/L 21-32 Carbon Dioxide Level JEFF ([facility]) anion gap 6 mEq/L 8-16 Below low normal Anion Gap JEFF ( [facility]) calcium level 9.7 mg/dL 8.5-10.1 Calcium Level JEFF ( [facility]) ID Date Data Source [id number] 08/09/2020 12:40:00 PM EDT JEFF ([facility]) Name Value Range Interpretation Code Description Data Becky rce(s) Supporting Document(s) AST/SGOT 24 U/L 7-37 AST/SGOT JEFF ([facility]) alkaline phosphatase 101 U/L 45-117 Alkaline Phosph atase JEFF ([facility]) ALT/SGPT 39 U/L 12-78 ALT/SGPT JEFF ([facility]) bilirubin,total 0.4 mg/dL 0.2-1.0 Bilirubin,total ATHE ([facility]) total protein 7.6 gm/dL 6.4-8.2 Total Protein JEFF ( [facility]) bilirubin,direct 0.1 mg/dL 0.0-0.2 Bilirubin,direct AT DIONICIO ([facility]) albumin/globulin ratio Albumin/globu bianca Ratio JEFF ([facility]) albumin 3.9 gm/dL 3.2-5.2 Albumin JEFF ([facility]) ID Date Data Source [id number] 08/09/2020 12:40:00 PM EDT JEFF ([facility]) Name Value Range Interpretation Code Description Data Becky rce(s) Supporting Document(s) red blood count 5.23 10 4.30-6.10 Red Blood Count ATHE NA ([facility]) white blood count 7.4 10 4.0-10.0 White Blood Count JEFF ([facility]) hemoglobin 15.5 g/dL 13.5-17.5 Hemoglobin JEFF ([facility]) hematocrit 46.0 % 42.0-52.0 Hematocrit JEFF ([facility]) mean corpuscular hemoglobin 29.6 pg 27.0-33.0 Mean Cor puscular Hemoglobin JEFF ([facility]) mean corpuscular HGB conc 33.7 g/dL 32.0-36.5 Mean Corpu scular HGB Conc JEFF ([facility]) mean corpuscular volume 88.0 fL 80.0-96.0 Mean Corpusc ular Volume JEFF ([facility]) red cell distribution width 12.5 % 11.5-14.5 Red Cell Distribution Width JEFF ([facility]) neutrophils % 60.8 % 36.0-66.0 Neutrophils % [facility] ( [facility]) platelet count, automated 186 10 150-450 Platelet C ount, Automated JEFF ([facility]) lymph % 23.0 % 24.0-44.0 Below low normal Lymph % JEFF ( [facility]) mono % 7.6 % 0.0-5.0 Above high normal [place] % [facility] ([facility]) eos % 5.8 % 0.0-3.0 Above high normal Eos % JEFF ([facility]) neutrophils # 4.5 10 1.5-8.5 Neutrophils # [facility] ( [facility]) baso % 1.0 % 0.0-1.0 Baso % JEFF ([facility]) immature granulocyte % 1.8 % 0-3.0 Immature Gran ulocyte % JEFF ([facility]) nucleated red blood cell % 0.0 % 0-0 Nucleated Red Blood Cell % JEFF ([facility]) lymph # 1.7 10 1.5-5.0 Lymph # JEFF ([facility]) eos # 0.4 10 0.0-0.5 Eos # JEFF ([facility]) mono # 0.6 10 0.0-0.8 [place] # JEFF ([facility]) baso # 0.1 10 0.0-0.2 Baso # JEFF ([facility]) ID Date Data Source [id number] 08/09/2020 12:40:00 PM EDT JEFF ([facility]) Name Value Range Interpretation Code Description Data Becky rce(s) Supporting Document(s) venous pH 7.320 units 7.330-7.430 Below low normal Venous pH JEFF ([facility]) venous partial pressure O2 62.5 mmHg 30.0-50.0 Above high nor mal Venous Partial Pressure O2 JEFF ([facility]) venous total CO2 22.8 mEq/L 24.0-28.0 Below low normal Venous Total CO2 [facility] ([facility]) venous partial pressure CO2 42.6 mmHg 38.0-50.0 Venous P artial Pressure CO2 JEFF ([facility]) venous base excess -2.0-2.0 Below low normal Venous Base Excess JEFF ([facility]) venous HCO3 21.5 mEq/L 23.0-27.0 Below low normal Venous HCO3 JEFF ([facility]) venous standard HCO3 20.7 mEq/L Venous Standard HCO3 JEFF ([facility]) venous O2 saturation 91.2 % 60.0-80.0 Above high normal Venous O 2 Saturation JEFF ([facility]) ID Date Data Source [id number] 08/09/2020 12:40:00 PM EDT JEFF ([facility]) Name Value Range Interpretation Code Description Data Becky rce(s) Supporting Document(s) estimated average glucose 200 mg/dL 60-110 Above high norm al Estimated Average Glucose JEFF ([facility]) Hemoglobin A1c/Hemoglobin.total in Blood 8.6 % Hemoglobin a1C JE[facility] ([facility]) ID Date Data Source [id number] 08/09/2020 12:40:00 PM EDT JEFF ([facility]) Name Value Range Interpretation Code Description Data Becky rce(s) Supporting Document(s) acetone/ketone 1.22 mg/dL <2.81 Acetone/ketone [facility] ([facility]) ID Date Data Source [id number] 08/09/2020 12:40:00 PM EDT JEFF ([facility]) Name Value Range Interpretation Code Description Data Becky rce(s) Supporting Document(s) creatinine for GFR 1.03 mg/dL 0.70-1.30 Creatinine for GF R JEFF ([facility]) blood urea nitrogen 16 mg/dL 7-18 Blood Urea Nitro gen JEFF ([facility]) glucose, fasting 210 mg/dL 70-100 Above high normal Glucose, Fas ting JEFF ([facility]) sodium level 135 mEq/L 136-145 Below low normal Sodium Level [facility] ([facility]) potassium serum 4.0 mEq/L 3.5-5.1 Potassium Serum [facility] ([facility]) glomerular filtration rate > 60.0 >60 Glomerula r Filtration Rate JEFF ([facility]) chloride level 101 mEq/L 98-107 Chloride Level [place] ([facility]) anion gap 6 mEq/L 8-16 Below low normal Anion Gap JEFF ( [facility]) carbon dioxide level 28 mEq/L 21-32 Carbon Dioxide Level JEFF ([facility]) calcium level 9.7 mg/dL 8.5-10.1 Calcium Level [place] ( [facility]) ID Date Data Source [id number] 08/09/2020 12:40:00 PM EDT [place] ([facility]) Name Value Range Interpretation Code Description Data Becky rce(s) Supporting Document(s) AST/SGOT 24 U/L 7-37 AST/SGOT [facility] ([facility]) ALT/SGPT 39 U/L 12-78 ALT/SGPT [place] ([facility]) bilirubin,total 0.4 mg/dL 0.2-1.0 Bilirubin,total [facility] ([facility]) alkaline phosphatase 101 U/L 45-117 Alkaline Phosph atase JE[facility] ([facility]) bilirubin,direct 0.1 mg/dL 0.0-0.2 Bilirubin,direct AT [place] ([facility]) total protein 7.6 gm/dL 6.4-8.2 Total Protein JEFF ( [facility]) albumin/globulin ratio Albumin/globu bianca Ratio JEFF ([facility]) albumin 3.9 gm/dL 3.2-5.2 Albumin [facility] ([facility]) ID Date Data Source [id number] 08/09/2020 12:40:00 PM EDT [place] ([facility]) Name Value Range Interpretation Code Description Data Becky rce(s) Supporting Document(s) red blood count 5.23 10 4.30-6.10 Red Blood Count [facility] ([facility]) white blood count 7.4 10 4.0-10.0 White Blood Count JE[facility] ([facility]) hemoglobin 15.5 g/dL 13.5-17.5 Hemoglobin JE[facility] ([facility]) hematocrit 46.0 % 42.0-52.0 Hematocrit [facility] ([facility]) mean corpuscular hemoglobin 29.6 pg 27.0-33.0 Mean Cor puscular Hemoglobin JE[facility] ([facility]) mean corpuscular volume 88.0 fL 80.0-96.0 Mean Corpusc ular Volume JE[facility] ([facility]) mean corpuscular HGB conc 33.7 g/dL 32.0-36.5 Mean Corpu scular HGB Conc JE[facility] ([facility]) red cell distribution width 12.5 % 11.5-14.5 Red Cell Distribution Width [facility] ([facility]) platelet count, automated 186 10 150-450 [facility] lymph % 23.0 % 24.0-44.0 Below low normal Lymph % JEFF ( [facility]) neutrophils % 60.8 % 36.0-66.0 Neutrophils % JEFF ( [facility]) mono % 7.6 % 0.0-5.0 Above high normal [place] % JEFF ([facility]) eos % 5.8 % 0.0-3.0 Above high normal Eos % JE[facility] ([facility]) immature granulocyte % 1.8 % 0-3.0 Immature Gran ulocyte % JE[facility] ([facility]) baso % 1.0 % 0.0-1.0 Baso % [facility] ([facility]) nucleated red blood cell % 0.0 % 0-0 Nucleated Red Blood Cell % JEFF ([facility]) neutrophils # 4.5 10 1.5-8.5 Neutrophils # JEFF ( [facility]) lymph # 1.7 10 1.5-5.0 Lymph # [facility] ([facility]) mono # 0.6 10 0.0-0.8 [place] # JEFF ([facility]) baso # 0.1 10 0.0-0.2 Baso # [facility] ([facility]) eos # 0.4 10 0.0-0.5 Eos # [facility] ([facility]) ID Date Data Source [id number] 08/09/2020 12:40:00 PM EDT [place] ([facility]) Name Value Range Interpretation Code Description Data Becky rce(s) Supporting Document(s) venous pH 7.320 units 7.330-7.430 Below low normal Venous pH JEFF ([facility]) venous partial pressure CO2 42.6 mmHg 38.0-50.0 Venous P artial Pressure CO2 JE[facility] ([facility]) venous partial pressure O2 62.5 mmHg 30.0-50.0 Above high nor mal Venous Partial Pressure O2 JE[facility] ([facility]) venous total CO2 22.8 mEq/L 24.0-28.0 Below low normal Venous Total CO2 JE[facility] ([facility]) venous HCO3 21.5 mEq/L 23.0-27.0 Below low normal Venous HCO3 JE[facility] ([facility]) venous O2 saturation 91.2 % 60.0-80.0 Above high normal Venous O 2 Saturation JEFF ([facility]) venous base excess -2.0-2.0 Below low normal Venous Base Excess JE[facility] ([facility]) venous standard HCO3 20.7 mEq/L Venous Standard HCO3 JE[facility] ([facility]) ID Date Data Source [id number] 08/09/2020 12:40:00 PM EDT [place] ([facility]) Name Value Range Interpretation Code Description Data Becky rce(s) Supporting Document(s) Hemoglobin A1c/Hemoglobin.total in Blood 8.6 % Hemoglobin a1C [place] ([facility]) estimated average glucose 200 mg/dL 60-110 Above high norm al Estimated Average Glucose [facility] ([facility]) ID Date Data Source [id number] 08/09/2020 12:40:00 PM EDT [place] ([facility]) Name Value Range Interpretation Code Description Data Becky rce(s) Supporting Document(s) acetone/ketone 1.22 mg/dL <2.81 Acetone/ketone [facility] ([facility]) ID Date Data Source [id number] 08/09/2020 12:40:00 PM EDT [place] ([facility]) Name Value Range Interpretation Code Description Data Becky rce(s) Supporting Document(s) glucose, fasting 210 mg/dL 70-100 Above high normal Glucose, Fas ting JEFF ([facility]) blood urea nitrogen 16 mg/dL 7-18 Blood Urea Nitro gen JEFF ([facility]) glomerular filtration rate > 60.0 >60 Glomerula r Filtration Rate JE[facility] ([facility]) creatinine for GFR 1.03 mg/dL 0.70-1.30 Creatinine for GF R JEFF ([facility]) sodium level 135 mEq/L 136-145 Below low normal Sodium Level [facility] NA ([facility]) potassium serum 4.0 mEq/L 3.5-5.1 Potassium Serum [facility] NA ([facility]) chloride level 101 mEq/L 98-107 Chloride Level [place] ([facility]) anion gap 6 mEq/L 8-16 Below low normal Anion Gap JEFF ( [facility]) carbon dioxide level 28 mEq/L 21-32 Carbon Dioxide Level JE[facility] ([facility]) calcium level 9.7 mg/dL 8.5-10.1 Calcium Level [facility] ( [facility]) ID Date Data Source [id number] 08/09/2020 12:40:00 PM EDT JEFF ([facility]) Name Value Range Interpretation Code Description Data Becky rce(s) Supporting Document(s) ALT/SGPT 39 U/L 12-78 ALT/SGPT [facility] ([facility]) alkaline phosphatase 101 U/L 45-117 Alkaline Phosph atase JEFF ([facility]) AST/SGOT 24 U/L 7-37 AST/SGOT [facility] ([facility]) bilirubin,total 0.4 mg/dL 0.2-1.0 Bilirubin,total [facility] ([facility]) bilirubin,direct 0.1 mg/dL 0.0-0.2 Bilirubin,direct AT [facility] ([facility]) albumin 3.9 gm/dL 3.2-5.2 Albumin JEFF ([facility]) total protein 7.6 gm/dL 6.4-8.2 Total Protein JEFF ( [facility]) albumin/globulin ratio Albumin/globu bianca Ratio [facility] ([facility]) ID Date Data Source [id number] 08/09/2020 12:40:00 PM EDT JEFF ([facility]) Name Value Range Interpretation Code Description Data Becky rce(s) Supporting Document(s) hemoglobin 15.5 g/dL 13.5-17.5 Hemoglobin JE[facility] ([facility]) red blood count 5.23 10 4.30-6.10 Red Blood Count [facility] ([facility]) white blood count 7.4 10 4.0-10.0 White Blood Count JEFF ([facility]) mean corpuscular hemoglobin 29.6 pg 27.0-33.0 Mean Cor puscular Hemoglobin JEFF ([facility]) mean corpuscular volume 88.0 fL 80.0-96.0 Mean Corpusc ular Volume JEFF ([facility]) hematocrit 46.0 % 42.0-52.0 Hematocrit JE[facility] ([facility]) mean corpuscular HGB conc 33.7 g/dL 32.0-36.5 Mean Corpu scular HGB Conc JEFF ([facility]) red cell distribution width 12.5 % 11.5-14.5 Red Cell Distribution Width JEFF ([facility]) lymph % 23.0 % 24.0-44.0 Below low normal Lymph % JEFF ( [facility]) neutrophils % 60.8 % 36.0-66.0 Neutrophils % [place] ( [facility]) platelet count, automated 186 10 150-450 Platelet C ount, Automated JEFF ([facility]) eos % 5.8 % 0.0-3.0 Above high normal Eos % JE[facility] ([facility]) baso % 1.0 % 0.0-1.0 Baso % [facility] ([facility]) mono % 7.6 % 0.0-5.0 Above high normal [place] % JEFF ([facility]) neutrophils # 4.5 10 1.5-8.5 Neutrophils # [place] ( [facility]) nucleated red blood cell % 0.0 % 0-0 Nucleated Red Blood Cell % JE[facility] ([facility]) immature granulocyte % 1.8 % 0-3.0 Immature Gran ulocyte % JE[facility] ([facility]) eos # 0.4 10 0.0-0.5 Eos # [facility] ([facility]) lymph # 1.7 10 1.5-5.0 Lymph # [facility] ([facility]) mono # 0.6 10 0.0-0.8 [place] # JE[facility] ([facility]) baso # 0.1 10 0.0-0.2 Baso # [facility] ([facility]) ID Date Data Source [id number] 08/09/2020 12:40:00 PM EDT [place] ([facility]) Name Value Range Interpretation Code Description Data Becky rce(s) Supporting Document(s) venous pH 7.320 units 7.330-7.430 Below low normal Venous pH JE[facility] ([facility]) venous partial pressure CO2 42.6 mmHg 38.0-50.0 Venous P artial Pressure CO2 [facility] ([facility]) venous total CO2 22.8 mEq/L 24.0-28.0 Below low normal Venous Total CO2 [facility] ([facility]) venous HCO3 21.5 mEq/L 23.0-27.0 Below low normal Venous HCO3 [facility] ([facility]) venous partial pressure O2 62.5 mmHg 30.0-50.0 Above high nor mal Venous Partial Pressure O2 [place] ([facility]) venous O2 saturation 91.2 % 60.0-80.0 Above high normal Venous O 2 Saturation [facility] ([facility]) venous standard HCO3 20.7 mEq/L Venous Standard HCO3 [place] ([facility]) venous base excess -2.0-2.0 Below low normal Venous Base Excess [facility] ([facility]) ID Date Data Source [id number] 08/09/2020 12:40:00 PM EDT [place] ([facility]) Name Value Range Interpretation Code Description Data Becky rce(s) Supporting Document(s) Hemoglobin A1c/Hemoglobin.total in Blood 8.6 % Hemoglobin a1C [facility] ([facility]) estimated average glucose 200 mg/dL 60-110 Above high norm al Estimated Average Glucose [facility] ([facility]) ID Date Data Source [id number] 08/09/2020 12:40:00 PM EDT JEFF ([facility]) Name Value Range Interpretation Code Description Data Becky rce(s) Supporting Document(s) acetone/ketone 1.22 mg/dL <2.81 Acetone/ketone [facility] ([facility]) ID Date Data Source [id number] 08/09/2020 12:40:00 PM EDT [place] ([facility]) Name Value Range Interpretation Code Description Data Becky rce(s) Supporting Document(s) glucose, fasting 210 mg/dL 70-100 Above high normal Glucose, Fas ting JEFF ([facility]) glomerular filtration rate > 60.0 >60 Glomerula r Filtration Rate JEFF ([facility]) blood urea nitrogen 16 mg/dL 7-18 Blood Urea Nitro gen JEFF ([facility]) sodium level 135 mEq/L 136-145 Below low normal Sodium Level [facility] NA ([facility]) creatinine for GFR 1.03 mg/dL 0.70-1.30 Creatinine for GF R JEFF ([facility]) chloride level 101 mEq/L 98-107 Chloride Level [place] ([facility]) carbon dioxide level 28 mEq/L 21-32 Carbon Dioxide Level [place] ([facility]) potassium serum 4.0 mEq/L 3.5-5.1 Potassium Serum ATHE NA ([facility]) calcium level 9.7 mg/dL 8.5-10.1 Calcium Level [place] ( [facility]) anion gap 6 mEq/L 8-16 Below low normal Anion Gap [place] ( [facility]) ID Date Data Source [id number] 08/09/2020 12:40:00 PM EDT [place] ([facility]) Name Value Range Interpretation Code Description Data Becky rce(s) Supporting Document(s) AST/SGOT 24 U/L 7-37 AST/SGOT [facility] ([facility]) ALT/SGPT 39 U/L 12-78 ALT/SGPT [facility] ([facility]) alkaline phosphatase 101 U/L 45-117 Alkaline Phosph atase JE[facility] ([facility]) bilirubin,total 0.4 mg/dL 0.2-1.0 Bilirubin,total [facility] ([facility]) total protein 7.6 gm/dL 6.4-8.2 Total Protein [place] ( [facility]) bilirubin,direct 0.1 mg/dL 0.0-0.2 Bilirubin,direct AT [place] ([facility]) albumin 3.9 gm/dL 3.2-5.2 Albumin JE[facility] ([facility]) albumin/globulin ratio Albumin/globu bianca Ratio [facility] ([facility]) ID Date Data Source [id number] 08/09/2020 12:40:00 PM EDT [facility] ([facility]) Name Value Range Interpretation Code Description Data Becky rce(s) Supporting Document(s) red blood count 5.23 10 4.30-6.10 Red Blood Count [facility] NA ([facility]) white blood count 7.4 10 4.0-10.0 White Blood Count [facility] ([facility]) hemoglobin 15.5 g/dL 13.5-17.5 Hemoglobin JE[facility] ([facility]) mean corpuscular volume 88.0 fL 80.0-96.0 Mean Corpusc ular Volume JEFF ([facility]) hematocrit 46.0 % 42.0-52.0 Hematocrit JE[facility] ([facility]) red cell distribution width 12.5 % 11.5-14.5 Red Cell Distribution Width [facility] ([facility]) mean corpuscular HGB conc 33.7 g/dL 32.0-36.5 Mean Corpu scular HGB Conc JE[facility] ([facility]) mean corpuscular hemoglobin 29.6 pg 27.0-33.0 Mean Cor puscular Hemoglobin JE[facility] ([facility]) mono % 7.6 % 0.0-5.0 Above high normal [place] % [facility] ([facility]) neutrophils % 60.8 % 36.0-66.0 Neutrophils % JE[facility] ( [facility]) lymph % 23.0 % 24.0-44.0 Below low normal Lymph % [facility] ( [facility]) platelet count, automated 186 10 150-450 Platelet C ount, Automated [facility] ([facility]) eos % 5.8 % 0.0-3.0 Above high normal Eos % [facility] ([facility]) baso % 1.0 % 0.0-1.0 Baso % [facility] ([facility]) immature granulocyte % 1.8 % 0-3.0 Immature Gran ulocyte % [facility] ([facility]) neutrophils # 4.5 10 1.5-8.5 Neutrophils # [facility] ( [facility]) nucleated red blood cell % 0.0 % 0-0 Nucleated Red Blood Cell % [facility] ([facility]) lymph # 1.7 10 1.5-5.0 Lymph # [facility] ([facility]) baso # 0.1 10 0.0-0.2 Baso # [facility] ([facility]) mono # 0.6 10 0.0-0.8 [place] # [facility] ([facility]) eos # 0.4 10 0.0-0.5 Eos # [facility] ([facility]) ID Date Data Source [id number] 08/09/2020 12:40:00 PM EDT [place] ([facility]) Name Value Range Interpretation Code Description Data Becky rce(s) Supporting Document(s) venous pH 7.320 units 7.330-7.430 Below low normal Venous pH JE[facility] ([facility]) venous partial pressure CO2 42.6 mmHg 38.0-50.0 Venous P artial Pressure CO2 [facility] ([facility]) venous HCO3 21.5 mEq/L 23.0-27.0 Below low normal Venous HCO3 [facility] ([facility]) venous total CO2 22.8 mEq/L 24.0-28.0 Below low normal Venous Total CO2 [facility] ([facility]) venous partial pressure O2 62.5 mmHg 30.0-50.0 Above high nor mal Venous Partial Pressure O2 [facility] ([facility]) venous standard HCO3 20.7 mEq/L Venous Standard HCO3 [facility] ([facility]) venous base excess -2.0-2.0 Below low normal Venous Base Excess [facility] ([facility]) venous O2 saturation 91.2 % 60.0-80.0 Above high normal Venous O 2 Saturation [facility] ([facility]) ID Date Data Source [id number] 08/09/2020 12:40:00 PM EDT JE[facility] ([facility]) Name Value Range Interpretation Code Description Data Becky rce(s) Supporting Document(s) estimated average glucose 200 mg/dL 60-110 Above high norm al Estimated Average Glucose [place] ([facility]) Hemoglobin A1c/Hemoglobin.total in Blood 8.6 % Hemoglobin a1C [facility] ([facility]) ID Date Data Source [id number] 08/09/2020 12:40:00 PM EDT [place] ([facility]) Name Value Range Interpretation Code Description Data Becky rce(s) Supporting Document(s) acetone/ketone 1.22 mg/dL <2.81 Acetone/ketone [facility] ([facility]) ID Date Data Source [id number] 08/09/2020 12:40:00 PM EDT [place] ([facility]) Name Value Range Interpretation Code Description Data Becky rce(s) Supporting Document(s) creatinine for GFR 1.03 mg/dL 0.70-1.30 Creatinine for GF R [place] ([facility]) blood urea nitrogen 16 mg/dL 7-18 Blood Urea Nitro gen [place] ([facility]) glomerular filtration rate > 60.0 >60 Glomerula r Filtration Rate [place] ([facility]) glucose, fasting 210 mg/dL 70-100 Above high normal Glucose, Fas ting JEFF ([facility]) sodium level 135 mEq/L 136-145 Below low normal Sodium Level [facility] NA ([facility]) carbon dioxide level 28 mEq/L 21-32 Carbon Dioxide Level [place] ([facility]) potassium serum 4.0 mEq/L 3.5-5.1 Potassium Serum [facility] NA ([facility]) chloride level 101 mEq/L 98-107 Chloride Level [place] ([facility]) anion gap 6 mEq/L 8-16 Below low normal Anion Gap [place] ( [facility]) calcium level 9.7 mg/dL 8.5-10.1 Calcium Level [facility]) ID Date Data Source [id number] 08/09/2020 12:40:00 PM EDT JEFF ([facility]) Name Value Range Interpretation Code Description Data Becky rce(s) Supporting Document(s) ALT/SGPT 39 U/L 12-78 ALT/SGPT [facility] ([facility]) AST/SGOT 24 U/L 7-37 AST/SGOT [facility] ([facility]) bilirubin,direct 0.1 mg/dL 0.0-0.2 Bilirubin,direct AT [place] ([facility]) total protein 7.6 gm/dL 6.4-8.2 Total Protein JEFF ( [facility]) bilirubin,total 0.4 mg/dL 0.2-1.0 Bilirubin,total AT[facility] NA ([facility]) alkaline phosphatase 101 U/L 45-117 Alkaline Phosph atase [facility] ([facility]) albumin/globulin ratio Albumin/globu bianca Ratio [facility] ([facility]) albumin 3.9 gm/dL 3.2-5.2 Albumin [facility] ([facility]) ID Date Data Source [id number] 08/09/2020 12:40:00 PM EDT [facility] ([facility]) Name Value Range Interpretation Code Description Data Becky rce(s) Supporting Document(s) white blood count 7.4 10 4.0-10.0 White Blood Count [facility] ([facility]) hemoglobin 15.5 g/dL 13.5-17.5 Hemoglobin [facility] ([facility]) mean corpuscular volume 88.0 fL 80.0-96.0 Mean Corpusc ular Volume JEFF ([facility]) red blood count 5.23 10 4.30-6.10 Red Blood Count AT[facility] NA ([facility]) hematocrit 46.0 % 42.0-52.0 Hematocrit [facility] ([facility]) mean corpuscular HGB conc 33.7 g/dL 32.0-36.5 Mean Corpu scular HGB Conc JE[facility] ([facility]) mean corpuscular hemoglobin 29.6 pg 27.0-33.0 Mean Cor puscular Hemoglobin JE[facility] ([facility]) red cell distribution width 12.5 % 11.5-14.5 Red Cell Distribution Width [facility] ([facility]) mono % 7.6 % 0.0-5.0 Above high normal [place] % [facility] ([facility]) platelet count, automated 186 10 150-450 Platelet C ount, Automated [facility] ([facility]) neutrophils % 60.8 % 36.0-66.0 Neutrophils % [facility] ( [facility]) lymph % 23.0 % 24.0-44.0 Below low normal Lymph % [place] ( [facility]) immature granulocyte % 1.8 % 0-3.0 Immature Gran ulocyte % [place] ([facility]) baso % 1.0 % 0.0-1.0 Baso % [place] ([facility]) eos % 5.8 % 0.0-3.0 Above high normal Eos % [place] ([facility]) nucleated red blood cell % 0.0 % 0-0 Nucleated Red Blood Cell % [place] ([facility]) eos # 0.4 10 0.0-0.5 Eos # [facility] ([facility]) lymph # 1.7 10 1.5-5.0 Lymph # [facility] ([facility]) neutrophils # 4.5 10 1.5-8.5 Neutrophils # [facility] ( [facility]) mono # 0.6 10 0.0-0.8 [place] # JEFF ([facility]) baso # 0.1 10 0.0-0.2 Baso # [facility] ([facility]) ID Date Data Source [id number] 08/09/2020 12:40:00 PM EDT [place] ([facility]) Name Value Range Interpretation Code Description Data Becky rce(s) Supporting Document(s) venous partial pressure CO2 42.6 mmHg 38.0-50.0 Venous P artial Pressure CO2 [facility] ([facility]) venous pH 7.320 units 7.330-7.430 Below low normal Venous pH [place] ([facility]) venous total CO2 22.8 mEq/L 24.0-28.0 Below low normal Venous Total CO2 [facility] ([facility]) venous partial pressure O2 62.5 mmHg 30.0-50.0 Above high nor mal Venous Partial Pressure O2 [facility] ([facility]) venous HCO3 21.5 mEq/L 23.0-27.0 Below low normal Venous HCO3 [facility] ([facility]) venous standard HCO3 20.7 mEq/L Venous Standard HCO3 [facility] ([facility]) venous base excess -2.0-2.0 Below low normal Venous Base Excess [place] ([facility]) venous O2 saturation 91.2 % 60.0-80.0 Above high normal Venous O 2 Saturation [place] ([facility]) ID Date Data Source [id number] 08/09/2020 12:40:00 PM EDT [facility]) Name Value Range Interpretation Code Description Data Becky rce(s) Supporting Document(s) acetone/ketone 1.22 mg/dL <2.81 Acetone/ketone [facility]) ID Date Data Source [id number] 08/09/2020 12:40:00 PM EDT [facility]) Name Value Range Interpretation Code Description Data Becky rce(s) Supporting Document(s) glucose, fasting 210 mg/dL 70-100 Above high normal Glucose, Fas ting JEFF ([facility]) blood urea nitrogen 16 mg/dL 7-18 Blood Urea Nitro gen [facility] ([facility]) glomerular filtration rate > 60.0 >60 Glomerula r Filtration Rate [facility] ([facility]) creatinine for GFR 1.03 mg/dL 0.70-1.30 Creatinine for GF R [facility] ([facility]) chloride level 101 mEq/L 98-107 Chloride Level [facility] ([facility]) carbon dioxide level 28 mEq/L 21-32 Carbon Dioxide Level [facility] ([facility]) potassium serum 4.0 mEq/L 3.5-5.1 Potassium Serum [facility] NA ([facility]) sodium level 135 mEq/L 136-145 Below low normal Sodium Level [facility] NA ([facility]) anion gap 6 mEq/L 8-16 Below low normal Anion Gap [facility] ( [facility]) calcium level 9.7 mg/dL 8.5-10.1 Calcium Level [facility] ( [facility]) ID Date Data Source [id number] 08/09/2020 12:40:00 PM EDT [facility] ([facility] [facility] Name Value Range Interpretation Code Description Data Becky rce(s) Supporting Document(s) AST/SGOT 24 U/L 7-37 AST/SGOT JEFF ([facility]) ALT/SGPT 39 U/L 12-78 ALT/SGPT JEFF ([facility]) bilirubin,total 0.4 mg/dL 0.2-1.0 Bilirubin,total ATHE ([facility]) total protein 7.6 gm/dL 6.4-8.2 Total Protein JEFF ( [facility]) bilirubin,direct 0.1 mg/dL 0.0-0.2 Bilirubin,direct AT [facility] ([facility]) alkaline phosphatase 101 U/L 45-117 Alkaline Phosph atase JEFF ([facility]) albumin 3.9 gm/dL 3.2-5.2 Albumin JEFF ([facility]) albumin/globulin ratio Albumin/globu bianca Ratio JEFF ([facility]) ID Date Data Source [id number] 08/09/2020 12:40:00 PM EDT JEFF ([facility]) Name Value Range Interpretation Code Description Data Becky rce(s) Supporting Document(s) white blood count 7.4 10 4.0-10.0 White Blood Count JEFF ([facility]) red blood count 5.23 10 4.30-6.10 Red Blood Count ATHE NA ([facility]) hemoglobin 15.5 g/dL 13.5-17.5 Hemoglobin JEFF ([facility]) mean corpuscular hemoglobin 29.6 pg 27.0-33.0 Mean Cor puscular Hemoglobin JEFF ([facility]) mean corpuscular volume 88.0 fL 80.0-96.0 Mean Corpusc ular Volume JEFF ([facility]) hematocrit 46.0 % 42.0-52.0 Hematocrit JEFF ([facility]) mean corpuscular HGB conc 33.7 g/dL 32.0-36.5 Mean Corpu scular HGB Conc JEFF ([facility]) platelet count, automated 186 10 150-450 Platelet C ount, Automated JEFF ([facility]) red cell distribution width 12.5 % 11.5-14.5 Red Cell Distribution Width JEFF ([facility]) neutrophils % 60.8 % 36.0-66.0 Neutrophils % [place] ( [facility]) lymph % 23.0 % 24.0-44.0 Below low normal Lymph % [place] ( [facility]) mono % 7.6 % 0.0-5.0 Above high normal [place] % JEFF ([facility]) eos % 5.8 % 0.0-3.0 Above high normal Eos % JEFF ([facility]) baso % 1.0 % 0.0-1.0 Baso % JEFF ([facility]) immature granulocyte % 1.8 % 0-3.0 Immature Gran ulocyte % [place] ([facility]) nucleated red blood cell % 0.0 % 0-0 Nucleated Red Blood Cell % JEFF ([facility]) neutrophils # 4.5 10 1.5-8.5 Neutrophils # JEFF ( [facility]) mono # 0.6 10 0.0-0.8 [place] # JEFF ([facility]) lymph # 1.7 10 1.5-5.0 Lymph # JEFF ([facility]) eos # 0.4 10 0.0-0.5 Eos # JEFF ([facility]) baso # 0.1 10 0.0-0.2 Baso # JEFF ([facility]) ID Date Data Source [id number] 08/09/2020 12:40:00 PM EDT JEFF ([facility]) Name Value Range Interpretation Code Description Data Becky rce(s) Supporting Document(s) venous pH 7.320 units 7.330-7.430 Below low normal Venous pH JEFF ([facility]) venous partial pressure CO2 42.6 mmHg 38.0-50.0 Venous P artial Pressure CO2 JEFF ([facility]) venous partial pressure O2 62.5 mmHg 30.0-50.0 Above high nor mal Venous Partial Pressure O2 JEFF ([facility]) venous total CO2 22.8 mEq/L 24.0-28.0 Below low normal Venous Total CO2 JEFF ([facility]) venous HCO3 21.5 mEq/L 23.0-27.0 Below low normal Venous HCO3 JEFF ([facility]) venous O2 saturation 91.2 % 60.0-80.0 Above high normal Venous O 2 Saturation JEFF ([facility]) venous base excess -2.0-2.0 Below low normal Venous Base Excess JEFF ([facility]) venous standard HCO3 20.7 mEq/L Venous Standard HCO3 JEFF ([facility]) ID Date Data Source [id number] 08/09/2020 12:40:00 PM EDT JEFF ([facility]) Name Value Range Interpretation Code Description Data Becky rce(s) Supporting Document(s) Hemoglobin A1c/Hemoglobin.total in Blood 8.6 % Hemoglobin a1C JEFF ([facility]) estimated average glucose 200 mg/dL 60-110 Above high norm al Estimated Average Glucose JEFF ([facility]) ID Date Data Source [id number] 08/09/2020 12:40:00 PM EDT JEFF ([facility]) Name Value Range Interpretation Code Description Data Becky rce(s) Supporting Document(s) acetone/ketone 1.22 mg/dL <2.81 Acetone/ketone JEFF ([facility]) ID Date Data Source [id number] 08/09/2020 12:40:00 PM EDT JEFF ([facility]) Name Value Range Interpretation Code Description Data Becky rce(s) Supporting Document(s) blood urea nitrogen 16 mg/dL 7-18 Blood Urea Nitro gen JEFF ([facility]) glucose, fasting 210 mg/dL 70-100 Above high normal Glucose, Fas ting JEFF ([facility]) creatinine for GFR 1.03 mg/dL 0.70-1.30 Creatinine for GF R JEFF ([facility]) potassium serum 4.0 mEq/L 3.5-5.1 Potassium Serum ATHE NA ([facility]) sodium level 135 mEq/L 136-145 Below low normal Sodium Level ATHE NA ([facility]) glomerular filtration rate > 60.0 >60 Glomerula r Filtration Rate JEFF ([facility]) calcium level 9.7 mg/dL 8.5-10.1 Calcium Level JEFF ( [facility]) anion gap 6 mEq/L 8-16 Below low normal Anion Gap JEFF ( [facility]) carbon dioxide level 28 mEq/L 21-32 Carbon Dioxide Level JEFF ([facility]) chloride level 101 mEq/L 98-107 Chloride Level [place] ([facility]) ID Date Data Source [id number] 08/09/2020 12:40:00 PM EDT JEFF ([facility]) Name Value Range Interpretation Code Description Data Becky rce(s) Supporting Document(s) AST/SGOT 24 U/L 7-37 AST/SGOT JEFF ([facility]) bilirubin,direct 0.1 mg/dL 0.0-0.2 Bilirubin,direct AT [place] ([facility]) alkaline phosphatase 101 U/L 45-117 Alkaline Phosph atase JEFF ([facility]) ALT/SGPT 39 U/L 12-78 ALT/SGPT [place] ([facility]) bilirubin,total 0.4 mg/dL 0.2-1.0 Bilirubin,total ATHE ([facility]) albumin 3.9 gm/dL 3.2-5.2 Albumin [place] ([facility]) total protein 7.6 gm/dL 6.4-8.2 Total Protein JEFF ( [facility]) albumin/globulin ratio Albumin/globu bianca Ratio JEFF ([facility]) ID Date Data Source [id number] 08/09/2020 12:40:00 PM EDT JEFF ([facility]) Name Value Range Interpretation Code Description Data Becky rce(s) Supporting Document(s) white blood count 7.4 10 4.0-10.0 White Blood Count JEFF ([facility]) red blood count 5.23 10 4.30-6.10 Red Blood Count ATHE ([facility]) hematocrit 46.0 % 42.0-52.0 Hematocrit JEFF ([facility]) mean corpuscular volume 88.0 fL 80.0-96.0 Mean Corpusc ular Volume JEFF ([facility]) hemoglobin 15.5 g/dL 13.5-17.5 Hemoglobin JEFF ([facility]) mean corpuscular hemoglobin 29.6 pg 27.0-33.0 Mean Cor puscular Hemoglobin JEFF ([facility]) mean corpuscular HGB conc 33.7 g/dL 32.0-36.5 Mean Corpu scular HGB Conc JEFF ([facility]) red cell distribution width 12.5 % 11.5-14.5 Red Cell Distribution Width JEFF ([facility]) lymph % 23.0 % 24.0-44.0 Below low normal Lymph % JEFF ( [facility]) neutrophils % 60.8 % 36.0-66.0 Neutrophils % JEFF ( [facility]) platelet count, automated 186 10 150-450 Platelet C ount, Automated JEFF ([facility]) mono % 7.6 % 0.0-5.0 Above high normal [place] % JEFF ([facility]) nucleated red blood cell % 0.0 % 0-0 Nucleated Red Blood Cell % JEFF ([facility]) baso % 1.0 % 0.0-1.0 Baso % JEFF ([facility]) immature granulocyte % 1.8 % 0-3.0 Immature Gran ulocyte % JEFF ([facility]) eos % 5.8 % 0.0-3.0 Above high normal Eos % JEFF ([facility]) lymph # 1.7 10 1.5-5.0 Lymph # JEFF ([facility]) neutrophils # 4.5 10 1.5-8.5 Neutrophils # JEFF ( [facility]) mono # 0.6 10 0.0-0.8 [place] # JEFF ([facility]) baso # 0.1 10 0.0-0.2 Baso # JEFF ([facility]) eos # 0.4 10 0.0-0.5 Eos # JEFF ([facility]) ID Date Data Source [id number] 08/09/2020 12:40:00 PM EDT [place] ([facility]) Name Value Range Interpretation Code Description Data Becky rce(s) Supporting Document(s) venous pH 7.320 units 7.330-7.430 Below low normal Venous pH JEFF ([facility]) venous partial pressure O2 62.5 mmHg 30.0-50.0 Above high nor mal Venous Partial Pressure O2 JEFF ([facility]) venous partial pressure CO2 42.6 mmHg 38.0-50.0 Venous P artial Pressure CO2 JEFF ([facility]) venous base excess -2.0-2.0 Below low normal Venous Base Excess JEFF ([facility]) venous total CO2 22.8 mEq/L 24.0-28.0 Below low normal Venous Total CO2 JEFF ([facility]) venous HCO3 21.5 mEq/L 23.0-27.0 Below low normal Venous HCO3 JEFF ([facility]) venous O2 saturation 91.2 % 60.0-80.0 Above high normal Venous O 2 Saturation JEFF ([facility]) venous standard HCO3 20.7 mEq/L Venous Standard HCO3 JEFF ([facility]) ID Date Data Source [id number] 08/09/2020 12:40:00 PM EDT [place] ([facility]) Name Value Range Interpretation Code Description Data Becky rce(s) Supporting Document(s) Hemoglobin A1c/Hemoglobin.total in Blood 8.6 % Hemoglobin a1C JEFF ([facility]) estimated average glucose 200 mg/dL 60-110 Above high norm al Estimated Average Glucose [place] ([facility]) ID Date Data Source [id number] 08/09/2020 12:40:00 PM EDT JEFF ([facility]) Name Value Range Interpretation Code Description Data Becky rce(s) Supporting Document(s) acetone/ketone 1.22 mg/dL <2.81 Acetone/ketone [place] ([facility]) ID Date Data Source [id number] 08/09/2020 12:40:00 PM EDT [place] ([facility]) Name Value Range Interpretation Code Description Data Becky rce(s) Supporting Document(s) glucose, fasting 210 mg/dL 70-100 Above high normal Glucose, Fas ting JEFF ([facility]) blood urea nitrogen 16 mg/dL 7-18 Blood Urea Nitro gen JEFF ([facility]) sodium level 135 mEq/L 136-145 Below low normal Sodium Level ATHE NA ([facility]) glomerular filtration rate > 60.0 >60 Glomerula r Filtration Rate JEFF ([facility]) creatinine for GFR 1.03 mg/dL 0.70-1.30 Creatinine for GF R JEFF ([facility]) potassium serum 4.0 mEq/L 3.5-5.1 Potassium Serum ATHE NA ([facility]) chloride level 101 mEq/L 98-107 Chloride Level JEFF ([facility]) carbon dioxide level 28 mEq/L 21-32 Carbon Dioxide Level JEFF ([facility]) anion gap 6 mEq/L 8-16 Below low normal Anion Gap JEFF ( [facility]) calcium level 9.7 mg/dL 8.5-10.1 Calcium Level [place] ( [facility]) ID Date Data Source [id number] 08/09/2020 12:40:00 PM EDT JEFF ([facility]) Name Value Range Interpretation Code Description Data Becky rce(s) Supporting Document(s) AST/SGOT 24 U/L 7-37 AST/SGOT JEFF ([facility]) bilirubin,total 0.4 mg/dL 0.2-1.0 Bilirubin,total ATHE NA ([facility]) alkaline phosphatase 101 U/L 45-117 Alkaline Phosph atase JEFF ([facility]) bilirubin,direct 0.1 mg/dL 0.0-0.2 Bilirubin,direct AT [facility]) ALT/SGPT 39 U/L 12-78 ALT/SGPT JEFF ([facility]) total protein 7.6 gm/dL 6.4-8.2 Total Protein JEFF ( [facility]) albumin 3.9 gm/dL 3.2-5.2 Albumin JEFF ([facility]) albumin/globulin ratio Albumin/globu bianca Ratio JEFF ([facility]) ID Date Data Source [id number] 08/09/2020 12:40:00 PM EDT JEFF ([facility]) Name Value Range Interpretation Code Description Data Becky rce(s) Supporting Document(s) red blood count 5.23 10 4.30-6.10 Red Blood Count ATHE NA ([facility]) white blood count 7.4 10 4.0-10.0 White Blood Count JEFF ([facility]) hemoglobin 15.5 g/dL 13.5-17.5 Hemoglobin JEFF ([facility]) mean corpuscular volume 88.0 fL 80.0-96.0 Mean Corpusc ular Volume JEFF ([facility]) mean corpuscular hemoglobin 29.6 pg 27.0-33.0 Mean Cor puscular Hemoglobin JEFF ([facility]) hematocrit 46.0 % 42.0-52.0 Hematocrit JEFF ([facility]) red cell distribution width 12.5 % 11.5-14.5 Red Cell Distribution Width JEFF ([facility]) platelet count, automated 186 10 150-450 Platelet C ount, Automated JEFF ([facility]) mean corpuscular HGB conc 33.7 g/dL 32.0-36.5 Mean Corpu scular HGB Conc JEFF ([facility]) mono % 7.6 % 0.0-5.0 Above high normal [place] % JEFF ([facility]) neutrophils % 60.8 % 36.0-66.0 Neutrophils % JEFF ( [facility]) lymph % 23.0 % 24.0-44.0 Below low normal Lymph % JEFF ( [facility]) eos % 5.8 % 0.0-3.0 Above high normal Eos % [place] ([facility]) immature granulocyte % 1.8 % 0-3.0 Immature Gran ulocyte % JEFF ([facility]) baso % 1.0 % 0.0-1.0 Baso % JEFF ([facility]) nucleated red blood cell % 0.0 % 0-0 Nucleated Red Blood Cell % JEFF ([facility]) neutrophils # 4.5 10 1.5-8.5 Neutrophils # JEFF ( [facility]) lymph # 1.7 10 1.5-5.0 Lymph # JEFF ([facility]) mono # 0.6 10 0.0-0.8 [place] # JEFF ([facility]) eos # 0.4 10 0.0-0.5 Eos # JEFF ([facility]) baso # 0.1 10 0.0-0.2 Baso # JEFF ([facility]) ID Date Data Source [id number] 08/09/2020 12:40:00 PM EDT [place] ([facility]) Name Value Range Interpretation Code Description Data Becky rce(s) Supporting Document(s) venous pH 7.320 units 7.330-7.430 Below low normal Venous pH [place] ([facility]) venous partial pressure O2 62.5 mmHg 30.0-50.0 Above high nor mal Venous Partial Pressure O2 JEFF ([facility]) venous partial pressure CO2 42.6 mmHg 38.0-50.0 Venous P artial Pressure CO2 JEFF ([facility]) venous base excess -2.0-2.0 Below low normal Venous Base Excess JEFF ([facility]) venous HCO3 21.5 mEq/L 23.0-27.0 Below low normal Venous HCO3 JEFF ([facility]) venous total CO2 22.8 mEq/L 24.0-28.0 Below low normal Venous Total CO2 JEFF ([facility]) venous standard HCO3 20.7 mEq/L Venous Standard HCO3 [place] ([facility]) venous O2 saturation 91.2 % 60.0-80.0 Above high normal Venous O 2 Saturation [place] ([facility]) ID Date Data Source [id number] 08/09/2020 12:40:00 PM EDT [place] ([facility]) Name Value Range Interpretation Code Description Data Becky rce(s) Supporting Document(s) Hemoglobin A1c/Hemoglobin.total in Blood 8.6 % Hemoglobin a1C [place] ([facility]) estimated average glucose 200 mg/dL 60-110 Above high norm al Estimated Average Glucose [place] ([facility]) ID Date Data Source [id number] 08/09/2020 12:40:00 PM EDT [place] ([facility]) Name Value Range Interpretation Code Description Data Becky rce(s) Supporting Document(s) acetone/ketone 1.22 mg/dL <2.81 Acetone/ketone [place] ([facility]) ID Date Data Source [id number] 08/09/2020 12:40:00 PM EDT [place] ([facility]) Name Value Range Interpretation Code Description Data Becky rce(s) Supporting Document(s) glucose, fasting 210 mg/dL 70-100 Above high normal Glucose, Fas ting JEFF ([facility]) sodium level 135 mEq/L 136-145 Below low normal Sodium Level ATHE NA ([facility]) glomerular filtration rate > 60.0 >60 Glomerula r Filtration Rate JEFF ([facility]) creatinine for GFR 1.03 mg/dL 0.70-1.30 Creatinine for GF R JEFF ([facility]) blood urea nitrogen 16 mg/dL 7-18 Blood Urea Nitro gen JEFF ([facility]) anion gap 6 mEq/L 8-16 Below low normal Anion Gap JEFF ( [facility]) chloride level 101 mEq/L 98-107 Chloride Level JEFF ([facility]) carbon dioxide level 28 mEq/L 21-32 Carbon Dioxide Level JEFF ([facility]) potassium serum 4.0 mEq/L 3.5-5.1 Potassium Serum ATHE NA ([facility]) calcium level 9.7 mg/dL 8.5-10.1 Calcium Level JEFF ( [facility]) ID Date Data Source [id number] 08/09/2020 12:40:00 PM EDT JEFF ([facility]) Name Value Range Interpretation Code Description Data Becky rce(s) Supporting Document(s) AST/SGOT 24 U/L 7-37 AST/SGOT [facility] ([facility]) ALT/SGPT 39 U/L 12-78 ALT/SGPT JE[facility] ([facility]) alkaline phosphatase 101 U/L 45-117 Alkaline Phosph atase JEFF ([facility]) bilirubin,total 0.4 mg/dL 0.2-1.0 Bilirubin,total ATHE NA ([facility]) total protein 7.6 gm/dL 6.4-8.2 Total Protein JEFF ( [facility]) albumin/globulin ratio Albumin/globu bianca Ratio JEFF ([facility]) albumin 3.9 gm/dL 3.2-5.2 Albumin JEFF ([facility]) bilirubin,direct 0.1 mg/dL 0.0-0.2 Bilirubin,direct AT [facility]) ID Date Data Source [id number] 08/09/2020 12:40:00 PM EDT JEFF ([facility]) Name Value Range Interpretation Code Description Data Becky rce(s) Supporting Document(s) red blood count 5.23 10 4.30-6.10 Red Blood Count ATHE NA ([facility]) white blood count 7.4 10 4.0-10.0 White Blood Count JEFF ([facility]) mean corpuscular hemoglobin 29.6 pg 27.0-33.0 Mean Cor puscular Hemoglobin JEFF ([facility]) hemoglobin 15.5 g/dL 13.5-17.5 Hemoglobin JEFF ([facility]) hematocrit 46.0 % 42.0-52.0 Hematocrit JEFF ([facility]) mean corpuscular volume 88.0 fL 80.0-96.0 Mean Corpusc ular Volume JEFF ([facility]) red cell distribution width 12.5 % 11.5-14.5 Red Cell Distribution Width JEFF ([facility]) mean corpuscular HGB conc 33.7 g/dL 32.0-36.5 Mean Corpu scular HGB Conc JEFF ([facility]) platelet count, automated 186 10 150-450 Platelet C ount, Automated JEFF ([facility]) neutrophils % 60.8 % 36.0-66.0 Neutrophils % [place] ( [facility]) mono % 7.6 % 0.0-5.0 Above high normal [place] % [place] ([facility]) lymph % 23.0 % 24.0-44.0 Below low normal Lymph % JEFF ( [facility]) nucleated red blood cell % 0.0 % 0-0 Nucleated Red Blood Cell % JEFF ([facility]) eos % 5.8 % 0.0-3.0 Above high normal Eos % [place] ([facility]) immature granulocyte % 1.8 % 0-3.0 Immature Gran ulocyte % JEFF ([facility]) baso % 1.0 % 0.0-1.0 Baso % JEFF ([facility]) neutrophils # 4.5 10 1.5-8.5 Neutrophils # JEFF ( [facility]) mono # 0.6 10 0.0-0.8 [place] # JEFF ([facility]) eos # 0.4 10 0.0-0.5 Eos # JEFF ([facility]) lymph # 1.7 10 1.5-5.0 Lymph # JEFF ([facility]) baso # 0.1 10 0.0-0.2 Baso # JEFF ([facility]) ID Date Data Source [id number] 08/09/2020 12:40:00 PM EDT JEFF ([facility]) Name Value Range Interpretation Code Description Data Becky rce(s) Supporting Document(s) venous pH 7.320 units 7.330-7.430 Below low normal Venous pH JEFF ([facility]) venous partial pressure O2 62.5 mmHg 30.0-50.0 Above high nor mal Venous Partial Pressure O2 JEFF ([facility]) venous partial pressure CO2 42.6 mmHg 38.0-50.0 Venous P artial Pressure CO2 JEFF ([facility]) venous base excess -2.0-2.0 Below low normal Venous Base Excess JEFF ([facility]) venous total CO2 22.8 mEq/L 24.0-28.0 Below low normal Venous Total CO2 JEFF ([facility]) venous standard HCO3 20.7 mEq/L Venous Standard HCO3 JEFF ([facility]) venous HCO3 21.5 mEq/L 23.0-27.0 Below low normal Venous HCO3 JEFF ([facility]) venous O2 saturation 91.2 % 60.0-80.0 Above high normal Venous O 2 Saturation JEFF ([facility]) ID Date Data Source [id number] 08/09/2020 12:40:00 PM EDT JEFF ([facility]) Name Value Range Interpretation Code Description Data Becky rce(s) Supporting Document(s) Hemoglobin A1c/Hemoglobin.total in Blood 8.6 % Hemoglobin a1C JEFF ([facility]) estimated average glucose 200 mg/dL 60-110 Above high norm al Estimated Average Glucose JEFF ([facility]) ID Date Data Source [id number] 08/09/2020 12:40:00 PM EDT [place] ([facility]) Name Value Range Interpretation Code Description Data Becky rce(s) Supporting Document(s) acetone/ketone 1.22 mg/dL <2.81 Acetone/ketone [facility]FF ([facility]) ID Date Data Source [id number] 08/09/2020 12:40:00 PM EDT JEFF ([facility]) Name Value Range Interpretation Code Description Data Becky rce(s) Supporting Document(s) glucose, fasting 210 mg/dL 70-100 Above high normal Glucose, Fas ting JEFF ([facility]) glomerular filtration rate > 60.0 >60 Glomerula r Filtration Rate JEFF ([facility]) blood urea nitrogen 16 mg/dL 7-18 Blood Urea Nitro gen JEFF ([facility]) creatinine for GFR 1.03 mg/dL 0.70-1.30 Creatinine for GF R JEFF ([facility]) carbon dioxide level 28 mEq/L 21-32 Carbon Dioxide Level JEFF ([facility]) sodium level 135 mEq/L 136-145 Below low normal Sodium Level ATHE NA ([facility]) chloride level 101 mEq/L 98-107 Chloride Level [place] ([facility]) potassium serum 4.0 mEq/L 3.5-5.1 Potassium Serum ATHE NA ([facility]) anion gap 6 mEq/L 8-16 Below low normal Anion Gap JEFF ( [facility]) calcium level 9.7 mg/dL 8.5-10.1 Calcium Level [place] ( [facility]) ID Date Data Source [id number] 08/09/2020 12:40:00 PM EDT [place] ([facility]) Name Value Range Interpretation Code Description Data Becky rce(s) Supporting Document(s) AST/SGOT 24 U/L 7-37 AST/SGOT [facility] ([facility]) ALT/SGPT 39 U/L 12-78 ALT/SGPT JEFF ([facility]) bilirubin,direct 0.1 mg/dL 0.0-0.2 Bilirubin,direct AT [place] ([facility]) total protein 7.6 gm/dL 6.4-8.2 Total Protein JEFF ( [facility]) alkaline phosphatase 101 U/L 45-117 Alkaline Phosph atase JEFF ([facility]) bilirubin,total 0.4 mg/dL 0.2-1.0 Bilirubin,total ATHE NA ([facility]) albumin 3.9 gm/dL 3.2-5.2 Albumin JEFF ([facility]) albumin/globulin ratio Albumin/globu bianca Ratio JEFF ([facility]) ID Date Data Source [id number] 08/09/2020 12:40:00 PM EDT [place] ([facility]) Name Value Range Interpretation Code Description Data Becky rce(s) Supporting Document(s) red blood count 5.23 10 4.30-6.10 Red Blood Count ATHE ([facility]) hemoglobin 15.5 g/dL 13.5-17.5 Hemoglobin JEFF ([facility]) white blood count 7.4 10 4.0-10.0 White Blood Count JEFF ([facility]) mean corpuscular hemoglobin 29.6 pg 27.0-33.0 Mean Cor puscular Hemoglobin JEFF ([facility]) hematocrit 46.0 % 42.0-52.0 Hematocrit JEFF ([facility]) mean corpuscular volume 88.0 fL 80.0-96.0 Mean Corpusc ular Volume JEFF ([facility]) red cell distribution width 12.5 % 11.5-14.5 Red Cell Distribution Width JEFF ([facility]) mean corpuscular HGB conc 33.7 g/dL 32.0-36.5 Mean Corpu scular HGB Conc JEFF ([facility]) platelet count, automated 186 10 150-450 Platelet C ount, Automated JEFF ([facility]) neutrophils % 60.8 % 36.0-66.0 Neutrophils % JEFF ( [facility]) mono % 7.6 % 0.0-5.0 Above high normal [place] % JEFF ([facility]) eos % 5.8 % 0.0-3.0 Above high normal Eos % JEFF ([facility]) lymph % 23.0 % 24.0-44.0 Below low normal Lymph % JEFF ( [facility]) immature granulocyte % 1.8 % 0-3.0 Immature Gran ulocyte % JEFF ([facility]) neutrophils # 4.5 10 1.5-8.5 Neutrophils # JEFF ( [facility]) nucleated red blood cell % 0.0 % 0-0 Nucleated Red Blood Cell % JEFF ([facility]) baso % 1.0 % 0.0-1.0 Baso % JE[facility] ([facility]) mono # 0.6 10 0.0-0.8 [place] # JEFF ([facility]) baso # 0.1 10 0.0-0.2 Baso # JEFF ([facility]) eos # 0.4 10 0.0-0.5 Eos # JEFF ([facility]) lymph # 1.7 10 1.5-5.0 Lymph # JEFF ([facility]) ID Date Data Source [id number] 08/09/2020 12:40:00 PM EDT [place] ([facility]) Name Value Range Interpretation Code Description Data Becky rce(s) Supporting Document(s) venous pH 7.320 units 7.330-7.430 Below low normal Venous pH JEFF ([facility]) venous partial pressure CO2 42.6 mmHg 38.0-50.0 Venous P artial Pressure CO2 JE[facility] ([facility]) venous HCO3 21.5 mEq/L 23.0-27.0 Below low normal Venous HCO3 JE[facility] ([facility]) venous partial pressure O2 62.5 mmHg 30.0-50.0 Above high nor mal Venous Partial Pressure O2 JE[facility] ([facility]) venous total CO2 22.8 mEq/L 24.0-28.0 Below low normal Venous Total CO2 JE[facility] ([facility]) venous standard HCO3 20.7 mEq/L Venous Standard HCO3 JE[facility] ([facility]) venous base excess -2.0-2.0 Below low normal Venous Base Excess JEFF ([facility]) venous O2 saturation 91.2 % 60.0-80.0 Above high normal Venous O 2 Saturation JE[facility] ([facility]) ID Date Data Source [id number] 08/09/2020 12:40:00 PM EDT [place] ([facility]) Name Value Range Interpretation Code Description Data Becky rce(s) Supporting Document(s) Hemoglobin A1c/Hemoglobin.total in Blood 8.6 % Hemoglobin a1C [place] ([facility]) estimated average glucose 200 mg/dL 60-110 Above high norm al Estimated Average Glucose [place] ([facility]) ID Date Data Source [id number] 08/09/2020 12:40:00 PM EDT JEFF ([facility]) Name Value Range Interpretation Code Description Data Becky rce(s) Supporting Document(s) acetone/ketone 1.22 mg/dL <2.81 Acetone/ketone [place] ([facility]) ID Date Data Source [id number] 08/09/2020 12:40:00 PM EDT [place] ([facility]) Name Value Range Interpretation Code Description Data Becky rce(s) Supporting Document(s) glucose, fasting 210 mg/dL 70-100 Above high normal Glucose, Fas ting JEFF ([facility]) sodium level 135 mEq/L 136-145 Below low normal Sodium Level ATHE NA ([facility]) creatinine for GFR 1.03 mg/dL 0.70-1.30 Creatinine for GF R JEFF ([facility]) blood urea nitrogen 16 mg/dL 7-18 Blood Urea Nitro gen JEFF ([facility]) glomerular filtration rate > 60.0 >60 Glomerula r Filtration Rate JEFF ([facility]) calcium level 9.7 mg/dL 8.5-10.1 Calcium Level JEFF ( [facility]) carbon dioxide level 28 mEq/L 21-32 Carbon Dioxide Level JEFF ([facility]) anion gap 6 mEq/L 8-16 Below low normal Anion Gap JEFF ( [facility]) potassium serum 4.0 mEq/L 3.5-5.1 Potassium Serum AT[facility] ([facility]) chloride level 101 mEq/L 98-107 Chloride Level JEFF ([facility]) ID Date Data Source [id number] 08/09/2020 12:40:00 PM EDT JEFF ([facility]) Name Value Range Interpretation Code Description Data Becky rce(s) Supporting Document(s) alkaline phosphatase 101 U/L 45-117 Alkaline Phosph atase JE[facility] ([facility]) ALT/SGPT 39 U/L 12-78 ALT/SGPT [facility] ([facility]) bilirubin,total 0.4 mg/dL 0.2-1.0 Bilirubin,total ATHE NA ([facility]) AST/SGOT 24 U/L 7-37 AST/SGOT [facility] ([facility]) albumin 3.9 gm/dL 3.2-5.2 Albumin JE[facility] ([facility]) albumin/globulin ratio Albumin/globu bianca Ratio JEFF ([facility]) total protein 7.6 gm/dL 6.4-8.2 Total Protein JEFF ( [facility]) bilirubin,direct 0.1 mg/dL 0.0-0.2 Bilirubin,direct AT [place] ([facility]) ID Date Data Source [id number] 08/09/2020 12:40:00 PM EDT JEFF ([facility]) Name Value Range Interpretation Code Description Data Becky rce(s) Supporting Document(s) red blood count 5.23 10 4.30-6.10 Red Blood Count AT[facility] ([facility]) white blood count 7.4 10 4.0-10.0 White Blood Count JEFF ([facility]) mean corpuscular volume 88.0 fL 80.0-96.0 Mean Corpusc ular Volume JEFF ([facility]) hematocrit 46.0 % 42.0-52.0 Hematocrit JEFF ([facility]) hemoglobin 15.5 g/dL 13.5-17.5 Hemoglobin JEFF ([facility]) mean corpuscular HGB conc 33.7 g/dL 32.0-36.5 Mean Corpu scular HGB Conc JEFF ([facility]) platelet count, automated 186 10 150-450 Platelet C ount, Automated JE[facility] ([facility]) mean corpuscular hemoglobin 29.6 pg 27.0-33.0 Mean Cor puscular Hemoglobin JEFF ([facility]) red cell distribution width 12.5 % 11.5-14.5 Red Cell Distribution Width JEFF ([facility]) mono % 7.6 % 0.0-5.0 Above high normal [place] % JEFF ([facility]) eos % 5.8 % 0.0-3.0 Above high normal Eos % JEFF ([facility]) neutrophils % 60.8 % 36.0-66.0 Neutrophils % JEFF ( [facility]) lymph % 23.0 % 24.0-44.0 Below low normal Lymph % [place] ( [facility]) nucleated red blood cell % 0.0 % 0-0 Nucleated Red Blood Cell % JEFF ([facility]) immature granulocyte % 1.8 % 0-3.0 Immature Gran ulocyte % JEFF ([facility]) baso % 1.0 % 0.0-1.0 Baso % [facility] ([facility]) mono # 0.6 10 0.0-0.8 [place] # JEFF ([facility]) eos # 0.4 10 0.0-0.5 Eos # [facility] ([facility]) neutrophils # 4.5 10 1.5-8.5 Neutrophils # JEFF ( [facility]) lymph # 1.7 10 1.5-5.0 Lymph # [facility] ([facility]) baso # 0.1 10 0.0-0.2 Baso # [facility] ([facility]) ID Date Data Source [id number] 08/09/2020 12:40:00 PM EDT JEFF ([facility]) Name Value Range Interpretation Code Description Data Becky rce(s) Supporting Document(s) venous partial pressure CO2 42.6 mmHg 38.0-50.0 Venous P artial Pressure CO2 JE[facility] ([facility]) venous pH 7.320 units 7.330-7.430 Below low normal Venous pH JE[facility] ([facility]) venous total CO2 22.8 mEq/L 24.0-28.0 Below low normal Venous Total CO2 JE[facility] ([facility]) venous base excess -2.0-2.0 Below low normal Venous Base Excess [place] ([facility]) venous partial pressure O2 62.5 mmHg 30.0-50.0 Above high nor mal Venous Partial Pressure O2 JE[facility] ([facility]) venous HCO3 21.5 mEq/L 23.0-27.0 Below low normal Venous HCO3 [place] ([facility]) venous standard HCO3 20.7 mEq/L Venous Standard HCO3 [facility] ([facility]) venous O2 saturation 91.2 % 60.0-80.0 Above high normal Venous O 2 Saturation [place] ([facility]) ID Date Data Source [id number] 08/09/2020 12:40:00 PM EDT [place] ([facility]) Name Value Range Interpretation Code Description Data Becky rce(s) Supporting Document(s) estimated average glucose 200 mg/dL 60-110 Above high norm al Estimated Average Glucose JE[facility] ([facility]) Hemoglobin A1c/Hemoglobin.total in Blood 8.6 % Hemoglobin a1C [place] ([facility]) ID Date Data Source [id number] 08/09/2020 12:40:00 PM EDT JE[facility] ([facility]) Name Value Range Interpretation Code Description Data Becky rce(s) Supporting Document(s) acetone/ketone 1.22 mg/dL <2.81 Acetone/ketone JEFF [facility]) ID Date Data Source [id number] 08/09/2020 12:40:00 PM EDT [place] ([facility]) Name Value Range Interpretation Code Description Data Becky rce(s) Supporting Document(s) glucose, fasting 210 mg/dL 70-100 Above high normal Glucose, Fas ting [place] ([facility]) glomerular filtration rate > 60.0 >60 Glomerula r Filtration Rate JEFF ([facility]) sodium level 135 mEq/L 136-145 Below low normal Sodium Level ATHE NA ([facility]) blood urea nitrogen 16 mg/dL 7-18 Blood Urea Nitro gen JEFF ([facility]) creatinine for GFR 1.03 mg/dL 0.70-1.30 Creatinine for GF R [place] ([facility]) potassium serum 4.0 mEq/L 3.5-5.1 Potassium Serum ATHE NA ([facility]) calcium level 9.7 mg/dL 8.5-10.1 Calcium Level [place] ( [facility]) anion gap 6 mEq/L 8-16 Below low normal Anion Gap [place] ( [facility]) chloride level 101 mEq/L 98-107 Chloride Level [place] ([facility]) carbon dioxide level 28 mEq/L 21-32 Carbon Dioxide Level [place] ([facility]) ID Date Data Source [id number] 08/09/2020 12:40:00 PM EDT [place] ([facility]) Name Value Range Interpretation Code Description Data Becky rce(s) Supporting Document(s) AST/SGOT 24 U/L 7-37 AST/SGOT [place] ([facility]) ALT/SGPT 39 U/L 12-78 ALT/SGPT [place] ([facility]) alkaline phosphatase 101 U/L 45-117 Alkaline Phosph atase [place] ([facility]) albumin 3.9 gm/dL 3.2-5.2 Albumin [place] ([facility]) bilirubin,direct 0.1 mg/dL 0.0-0.2 Bilirubin,direct AT [place] ([facility]) total protein 7.6 gm/dL 6.4-8.2 Total Protein JEFF ( [facility]) bilirubin,total 0.4 mg/dL 0.2-1.0 Bilirubin,total ATHE NA ([facility]) albumin/globulin ratio Albumin/globu bianca Ratio [facility]FF ([facility]) ID Date Data Source [id number] 08/09/2020 12:40:00 PM EDT [facility] ([facility]) Name Value Range Interpretation Code Description Data Becky rce(s) Supporting Document(s) red blood count 5.23 10 4.30-6.10 Red Blood Count ATHE NA ([facility]) hemoglobin 15.5 g/dL 13.5-17.5 Hemoglobin JEFF ([facility]) white blood count 7.4 10 4.0-10.0 White Blood Count [facility] ([facility]) mean corpuscular HGB conc 33.7 g/dL 32.0-36.5 Mean Corpu scular HGB Conc JEFF ([facility]) hematocrit 46.0 % 42.0-52.0 Hematocrit JE[facility] ([facility]) mean corpuscular hemoglobin 29.6 pg 27.0-33.0 Mean Cor puscular Hemoglobin JEFF ([facility]) mean corpuscular volume 88.0 fL 80.0-96.0 Mean Corpusc ular Volume JEFF ([facility]) neutrophils % 60.8 % 36.0-66.0 Neutrophils % JEFF ( [facility]) platelet count, automated 186 10 150-450 Platelet C ount, Automated JE[facility] ([facility]) red cell distribution width 12.5 % 11.5-14.5 Red Cell Distribution Width JEFF ([facility]) mono % 7.6 % 0.0-5.0 Above high normal [place] % JEFF ([facility]) eos % 5.8 % 0.0-3.0 Above high normal Eos % JEFF ([facility]) lymph % 23.0 % 24.0-44.0 Below low normal Lymph % JEFF ( [facility]) baso % 1.0 % 0.0-1.0 Baso % [facility] ([facility]) lymph # 1.7 10 1.5-5.0 Lymph # [facility] ([facility]) neutrophils # 4.5 10 1.5-8.5 Neutrophils # JEFF ( [facility]) nucleated red blood cell % 0.0 % 0-0 Nucleated Red Blood Cell % JEFF ([facility]) immature granulocyte % 1.8 % 0-3.0 Immature Gran ulocyte % JEFF ([facility]) baso # 0.1 10 0.0-0.2 Baso # [facility] ([facility]) eos # 0.4 10 0.0-0.5 Eos # [facility] ([facility]) mono # 0.6 10 0.0-0.8 [place] # [facility]FF ([facility]) ID Date Data Source [id number] 08/09/2020 12:40:00 PM EDT [place] ([facility]) Name Value Range Interpretation Code Description Data Becky rce(s) Supporting Document(s) venous pH 7.320 units 7.330-7.430 Below low normal Venous pH JEFF ([facility]) venous partial pressure O2 62.5 mmHg 30.0-50.0 Above high nor mal Venous Partial Pressure O2 JE[facility] ([facility]) venous partial pressure CO2 42.6 mmHg 38.0-50.0 Venous P artial Pressure CO2 [facility] ([facility]) venous base excess -2.0-2.0 Below low normal Venous Base Excess [facility] ([facility]) venous HCO3 21.5 mEq/L 23.0-27.0 Below low normal Venous HCO3 [facility] ([facility]) venous total CO2 22.8 mEq/L 24.0-28.0 Below low normal Venous Total CO2 [facility] ([facility]) venous O2 saturation 91.2 % 60.0-80.0 Above high normal Venous O 2 Saturation JE[facility] ([facility]) venous standard HCO3 20.7 mEq/L Venous Standard HCO3 [facility] ([facility]) ID Date Data Source [id number] 08/09/2020 12:40:00 PM EDT [place] ([facility]) Name Value Range Interpretation Code Description Data Becky rce(s) Supporting Document(s) Hemoglobin A1c/Hemoglobin.total in Blood 8.6 % Hemoglobin a1C [place] ([facility]) estimated average glucose 200 mg/dL 60-110 Above high norm al Estimated Average Glucose [place] ([facility]) ID Date Data Source [id number] 08/09/2020 12:40:00 PM EDT [facility] ([facility]) Name Value Range Interpretation Code Description Data Becky rce(s) Supporting Document(s) acetone/ketone 1.22 mg/dL <2.81 Acetone/ketone [place] ([facility]) ID Date Data Source [id number] 08/09/2020 12:40:00 PM EDT [place] ([facility]) Name Value Range Interpretation Code Description Data Becky rce(s) Supporting Document(s) creatinine for GFR 1.03 mg/dL 0.70-1.30 Creatinine for GF R JEFF ([facility]) glucose, fasting 210 mg/dL 70-100 Above high normal Glucose, Fas ting JEFF ([facility]) blood urea nitrogen 16 mg/dL 7-18 Blood Urea Nitro gen JEFF ([facility]) sodium level 135 mEq/L 136-145 Below low normal Sodium Level ATHE NA ([facility]) glomerular filtration rate > 60.0 >60 Glomerula r Filtration Rate JEFF ([facility]) chloride level 101 mEq/L 98-107 Chloride Level JE[facility] ([facility]) potassium serum 4.0 mEq/L 3.5-5.1 Potassium Serum ATHE NA ([facility]) anion gap 6 mEq/L 8-16 Below low normal Anion Gap JEFF ( [facility]) carbon dioxide level 28 mEq/L 21-32 Carbon Dioxide Level JEFF ([facility]) calcium level 9.7 mg/dL 8.5-10.1 Calcium Level JEFF ( [facility]) ID Date Data Source [id number] 08/09/2020 12:40:00 PM EDT [facility] ([facility]) Name Value Range Interpretation Code Description Data Becky rce(s) Supporting Document(s) AST/SGOT 24 U/L 7-37 AST/SGOT [facility] ([facility]) ALT/SGPT 39 U/L 12-78 ALT/SGPT [facility] ([facility]) bilirubin,direct 0.1 mg/dL 0.0-0.2 Bilirubin,direct AT [place] ([facility]) alkaline phosphatase 101 U/L 45-117 Alkaline Phosph atase JEFF ([facility]) total protein 7.6 gm/dL 6.4-8.2 Total Protein JEFF ( [facility]) bilirubin,total 0.4 mg/dL 0.2-1.0 Bilirubin,total ATHE NA ([facility]) albumin/globulin ratio Albumin/globu bianca Ratio JEFF ([facility]) albumin 3.9 gm/dL 3.2-5.2 Albumin [facility] ([facility]) ID Date Data Source [id number] 08/09/2020 12:40:00 PM EDT JEFF ([facility]) Name Value Range Interpretation Code Description Data Becky rce(s) Supporting Document(s) white blood count 7.4 10 4.0-10.0 White Blood Count JEFF ([facility]) hematocrit 46.0 % 42.0-52.0 Hematocrit JE[facility] ([facility]) red blood count 5.23 10 4.30-6.10 Red Blood Count ATHE NA ([facility]) hemoglobin 15.5 g/dL 13.5-17.5 Hemoglobin JEFF ([facility]) mean corpuscular hemoglobin 29.6 pg 27.0-33.0 Mean Cor puscular Hemoglobin JEFF ([facility]) mean corpuscular volume 88.0 fL 80.0-96.0 Mean Corpusc ular Volume JEFF ([facility]) mean corpuscular HGB conc 33.7 g/dL 32.0-36.5 Mean Corpu scular HGB Conc JEFF ([facility]) red cell distribution width 12.5 % 11.5-14.5 Red Cell Distribution Width JEFF ([facility]) platelet count, automated 186 10 150-450 Platelet C ount, Automated JE[facility] ([facility]) neutrophils % 60.8 % 36.0-66.0 Neutrophils % JEFF ( [facility]) mono % 7.6 % 0.0-5.0 Above high normal [place] % JEFF ([facility]) baso % 1.0 % 0.0-1.0 Baso % [facility] ([facility]) eos % 5.8 % 0.0-3.0 Above high normal Eos % JEFF ([facility]) lymph % 23.0 % 24.0-44.0 Below low normal Lymph % JEFF ( [facility]) immature granulocyte % 1.8 % 0-3.0 Immature Gran ulocyte % JEFF ([facility]) neutrophils # 4.5 10 1.5-8.5 Neutrophils # JEFF ( [facility]) nucleated red blood cell % 0.0 % 0-0 Nucleated Red Blood Cell % JEFF ([facility]) lymph # 1.7 10 1.5-5.0 Lymph # [facility] ([facility]) mono # 0.6 10 0.0-0.8 [place] # JEFF ([facility]) eos # 0.4 10 0.0-0.5 Eos # [facility] ([facility]) baso # 0.1 10 0.0-0.2 Baso # [facility] ([facility]) ID Date Data Source [id number] 08/09/2020 12:40:00 PM EDT [facility] ([facility]) Name Value Range Interpretation Code Description Data Becky rce(s) Supporting Document(s) venous pH 7.320 units 7.330-7.430 Below low normal Venous pH JEFF ([facility]) venous partial pressure O2 62.5 mmHg 30.0-50.0 Above high nor mal Venous Partial Pressure O2 [facility] ([facility]) venous partial pressure CO2 42.6 mmHg 38.0-50.0 Venous P artial Pressure CO2 [facility] ([facility]) venous total CO2 22.8 mEq/L 24.0-28.0 Below low normal Venous Total CO2 [facility] ([facility]) venous base excess -2.0-2.0 Below low normal Venous Base Excess [facility] ([facility]) venous HCO3 21.5 mEq/L 23.0-27.0 Below low normal Venous HCO3 [place] ([facility]) venous O2 saturation 91.2 % 60.0-80.0 Above high normal Venous O 2 Saturation [place] ([facility]) venous standard HCO3 20.7 mEq/L Venous Standard HCO3 [place] ([facility]) ID Date Data Source [id number] 08/09/2020 12:40:00 PM EDT [place] ([facility]) Name Value Range Interpretation Code Description Data Becky rce(s) Supporting Document(s) Hemoglobin A1c/Hemoglobin.total in Blood 8.6 % Hemoglobin a1C [place] ([facility]) estimated average glucose 200 mg/dL 60-110 Above high norm al Estimated Average Glucose [place] ([facility]) ID Date Data Source [id number] 08/09/2020 12:40:00 PM EDT [place] ([facility]) Name Value Range Interpretation Code Description Data Becky rce(s) Supporting Document(s) acetone/ketone 1.22 mg/dL <2.81 Acetone/ketone [place] ([facility]) ID Date Data Source [id number] 08/09/2020 12:40:00 PM EDT [place] ([facility]) Name Value Range Interpretation Code Description Data Becky rce(s) Supporting Document(s) glucose, fasting 210 mg/dL 70-100 Above high normal Glucose, Fas ting JEFF ([facility]) blood urea nitrogen 16 mg/dL 7-18 Blood Urea Nitro gen [facility]FF ([facility]) glomerular filtration rate > 60.0 >60 Glomerula r Filtration Rate JEFF ([facility]) creatinine for GFR 1.03 mg/dL 0.70-1.30 Creatinine for GF R [facility]FF ([facility]) sodium level 135 mEq/L 136-145 Below low normal Sodium Level ATHE NA ([facility]) potassium serum 4.0 mEq/L 3.5-5.1 Potassium Serum AT[facility] ([facility]) anion gap 6 mEq/L 8-16 Below low normal Anion Gap JEFF ( [facility]) carbon dioxide level 28 mEq/L 21-32 Carbon Dioxide Level [facility] ([facility]) chloride level 101 mEq/L 98-107 Chloride Level [facility] ([facility]) calcium level 9.7 mg/dL 8.5-10.1 Calcium Level [facility]FF ( [facility]) ID Date Data Source [id number] 08/09/2020 12:40:00 PM EDT [facility] ([facility]) Name Value Range Interpretation Code Description Data Becky rce(s) Supporting Document(s) AST/SGOT 24 U/L 7-37 AST/SGOT [facility] ([facility]) bilirubin,total 0.4 mg/dL 0.2-1.0 Bilirubin,total AT[facility] ([facility]) ALT/SGPT 39 U/L 12-78 ALT/SGPT [facility] ([facility]) alkaline phosphatase 101 U/L 45-117 Alkaline Phosph atase [facility] ([facility]) bilirubin,direct 0.1 mg/dL 0.0-0.2 Bilirubin,direct AT [place] ([facility]) total protein 7.6 gm/dL 6.4-8.2 Total Protein JEFF ( [facility]) albumin 3.9 gm/dL 3.2-5.2 Albumin [facility] ([facility]) albumin/globulin ratio Albumin/globu bianca Ratio [facility] ([facility]) ID Date Data Source [id number] 08/09/2020 12:40:00 PM EDT [facility] ([facility]) Name Value Range Interpretation Code Description Data Becky rce(s) Supporting Document(s) white blood count 7.4 10 4.0-10.0 White Blood Count [facility]FF ([facility]) red blood count 5.23 10 4.30-6.10 Red Blood Count AT[facility] ([facility]) mean corpuscular volume 88.0 fL 80.0-96.0 Mean Corpusc ular Volume EJFF ([facility]) hematocrit 46.0 % 42.0-52.0 Hematocrit [facility] ([facility]) hemoglobin 15.5 g/dL 13.5-17.5 Hemoglobin JE[facility] ([facility]) mean corpuscular hemoglobin 29.6 pg 27.0-33.0 Mean Cor puscular Hemoglobin JEFF ([facility]) mean corpuscular HGB conc 33.7 g/dL 32.0-36.5 Mean Corpu scular HGB Conc JEFF ([facility]) red cell distribution width 12.5 % 11.5-14.5 Red Cell Distribution Width [facility] ([facility]) lymph % 23.0 % 24.0-44.0 Below low normal Lymph % [place] ( [facility]) neutrophils % 60.8 % 36.0-66.0 Neutrophils % [place] ( [facility]) platelet count, automated 186 10 150-450 Platelet C ount, Automated [facility] ([facility]) immature granulocyte % 1.8 % 0-3.0 Immature Gran ulocyte % [facility]FF ([facility]) eos % 5.8 % 0.0-3.0 Above high normal Eos % JEFF ([facility]) baso % 1.0 % 0.0-1.0 Baso % [facility] ([facility]) mono % 7.6 % 0.0-5.0 Above high normal [place] % JEFF ([facility]) lymph # 1.7 10 1.5-5.0 Lymph # [facility] ([facility]) neutrophils # 4.5 10 1.5-8.5 Neutrophils # JEFF ( [facility]) nucleated red blood cell % 0.0 % 0-0 Nucleated Red Blood Cell % JEFF ([facility]) baso # 0.1 10 0.0-0.2 Baso # [facility] ([facility]) eos # 0.4 10 0.0-0.5 Eos # [facility] ([facility]) mono # 0.6 10 0.0-0.8 [place] # JEFF ([facility]) ID Date Data Source [id number] 08/09/2020 12:40:00 PM EDT [facility] ([facility]) Name Value Range Interpretation Code Description Data Becky rce(s) Supporting Document(s) venous pH 7.320 units 7.330-7.430 Below low normal Venous pH [place] ([facility]) venous partial pressure CO2 42.6 mmHg 38.0-50.0 Venous P artial Pressure CO2 [facility] ([facility]) venous partial pressure O2 62.5 mmHg 30.0-50.0 Above high nor mal Venous Partial Pressure O2 [place] ([facility]) venous base excess -2.0-2.0 Below low normal Venous Base Excess [facility] ([facility]) venous HCO3 21.5 mEq/L 23.0-27.0 Below low normal Venous HCO3 [facility] ([facility]) venous total CO2 22.8 mEq/L 24.0-28.0 Below low normal Venous Total CO2 [facility] ([facility]) venous O2 saturation 91.2 % 60.0-80.0 Above high normal Venous O 2 Saturation [facility] ([facility]) venous standard HCO3 20.7 mEq/L Venous Standard HCO3 [facility] ([facility]) ID Date Data Source [id number] 08/09/2020 12:40:00 PM EDT [facility] ([facility]) Name Value Range Interpretation Code Description Data Becky rce(s) Supporting Document(s) estimated average glucose 200 mg/dL 60-110 Above high norm al Estimated Average Glucose [facility] ([facility]) Hemoglobin A1c/Hemoglobin.total in Blood 8.6 % Hemoglobin a1C [facility] ([facility]) ID Date Data Source [id number] 08/09/2020 12:40:00 PM EDT [facility] ([facility]) Name Value Range Interpretation Code Description Data Becky rce(s) Supporting Document(s) acetone/ketone 1.22 mg/dL <2.81 Acetone/ketone [place] ([facility]) ID Date Data Source [id number] 08/09/2020 12:40:00 PM EDT [place] ([facility]) Name Value Range Interpretation Code Description Data Becky rce(s) Supporting Document(s) creatinine for GFR 1.03 mg/dL 0.70-1.30 Creatinine for GF R [place] ([facility]) glucose, fasting 210 mg/dL 70-100 Above high normal Glucose, Fas ting [facility] ([facility]) glomerular filtration rate > 60.0 >60 Glomerula r Filtration Rate [facility] ([facility]) blood urea nitrogen 16 mg/dL 7-18 Blood Urea Nitro gen [facility] ([facility]) chloride level 101 mEq/L 98-107 Chloride Level [place] ([facility]) potassium serum 4.0 mEq/L 3.5-5.1 Potassium Serum ATHE NA ([facility]) sodium level 135 mEq/L 136-145 Below low normal Sodium Level ATHE NA ([facility]) anion gap 6 mEq/L 8-16 Below low normal Anion Gap [place] ( [facility]) calcium level 9.7 mg/dL 8.5-10.1 Calcium Level JE[facility] ( [facility]) carbon dioxide level 28 mEq/L 21-32 Carbon Dioxide Level [facility] ([facility]) ID Date Data Source [id number] 08/09/2020 12:40:00 PM EDT [place] ([facility]) Name Value Range Interpretation Code Description Data Becky rce(s) Supporting Document(s) AST/SGOT 24 U/L 7-37 AST/SGOT [facility] ([facility]) bilirubin,total 0.4 mg/dL 0.2-1.0 Bilirubin,total ATHE NA ([facility]) alkaline phosphatase 101 U/L 45-117 Alkaline Phosph atase [facility] ([facility]) ALT/SGPT 39 U/L 12-78 ALT/SGPT [facility] ([facility]) albumin 3.9 gm/dL 3.2-5.2 Albumin [facility] ([facility]) bilirubin,direct 0.1 mg/dL 0.0-0.2 Bilirubin,direct AT [place] ([facility]) albumin/globulin ratio Albumin/globu bianca Ratio [facility] ([facility]) total protein 7.6 gm/dL 6.4-8.2 Total Protein [facility] ( [facility]) ID Date Data Source [id number] 08/09/2020 12:40:00 PM EDT [facility] ([facility]) Name Value Range Interpretation Code Description Data Becky rce(s) Supporting Document(s) white blood count 7.4 10 4.0-10.0 White Blood Count [facility] ([facility]) red blood count 5.23 10 4.30-6.10 Red Blood Count AT[facility] ([facility]) mean corpuscular volume 88.0 fL 80.0-96.0 Mean Corpusc ular Volume JE[facility] ([facility]) hemoglobin 15.5 g/dL 13.5-17.5 Hemoglobin [facility] ([facility]) hematocrit 46.0 % 42.0-52.0 Hematocrit [facility] ([facility]) mean corpuscular HGB conc 33.7 g/dL 32.0-36.5 Mean Corpu scular HGB Conc JE[facility] ([facility]) red cell distribution width 12.5 % 11.5-14.5 Red Cell Distribution Width [facility] ([facility]) mean corpuscular hemoglobin 29.6 pg 27.0-33.0 Mean Cor puscular Hemoglobin [facility] ([facility]) platelet count, automated 186 10 150-450 Platelet C ount, Automated [facility] ([facility]) lymph % 23.0 % 24.0-44.0 Below low normal Lymph % [facility] ( [facility]) neutrophils % 60.8 % 36.0-66.0 Neutrophils % [facility] ( [facility]) immature granulocyte % 1.8 % 0-3.0 Immature Gran ulocyte % [facility] ([facility]) eos % 5.8 % 0.0-3.0 Above high normal Eos % [facility] ([facility]) mono % 7.6 % 0.0-5.0 Above high normal [place] % [facility] ([facility]) baso % 1.0 % 0.0-1.0 Baso % [facility] ([facility]) lymph # 1.7 10 1.5-5.0 Lymph # [facility] ([facility]) nucleated red blood cell % 0.0 % 0-0 Nucleated Red Blood Cell % [facility] ([facility]) neutrophils # 4.5 10 1.5-8.5 Neutrophils # [facility] ( [facility]) eos # 0.4 10 0.0-0.5 Eos # [facility] ([facility]) mono # 0.6 10 0.0-0.8 [place] # [facility] ([facility]) baso # 0.1 10 0.0-0.2 Baso # [facility] ([facility]) ID Date Data Source [id number] 08/09/2020 12:40:00 PM EDT [place] ([facility]) Name Value Range Interpretation Code Description Data Becky rce(s) Supporting Document(s) venous pH 7.320 units 7.330-7.430 Below low normal Venous pH [place] ([facility]) venous partial pressure CO2 42.6 mmHg 38.0-50.0 Venous P artial Pressure CO2 [place] ([facility]) venous partial pressure O2 62.5 mmHg 30.0-50.0 Above high nor mal Venous Partial Pressure O2 [place] ([facility]) venous total CO2 22.8 mEq/L 24.0-28.0 Below low normal Venous Total CO2 [facility] ([facility]) venous base excess -2.0-2.0 Below low normal Venous Base Excess [place] ([facility]) venous HCO3 21.5 mEq/L 23.0-27.0 Below low normal Venous HCO3 [place] ([facility]) venous O2 saturation 91.2 % 60.0-80.0 Above high normal Venous O 2 Saturation [place] ([facility]) venous standard HCO3 20.7 mEq/L Venous Standard HCO3 [place] ([facility]) ID Date Data Source [id number] 08/09/2020 12:40:00 PM EDT [facility]) Name Value Range Interpretation Code Description Data Becky rce(s) Supporting Document(s) Hemoglobin A1c/Hemoglobin.total in Blood 8.6 % Hemoglobin a1C [place] ([facility]) estimated average glucose 200 mg/dL 60-110 Above high norm al Estimated Average Glucose [place] ([facility]) ID Date Data Source [id number] 08/09/2020 12:40:00 PM EDT [place] ([facility]) Name Value Range Interpretation Code Description Data Becky rce(s) Supporting Document(s) acetone/ketone 1.22 mg/dL <2.81 Acetone/ketone [place] ([facility]) ID Date Data Source [id number] 08/09/2020 12:40:00 PM EDT [place] ([facility]) Name Value Range Interpretation Code Description Data Becky rce(s) Supporting Document(s) glucose, fasting 210 mg/dL 70-100 Above high normal Glucose, Fas ting [place] ([facility]) glomerular filtration rate > 60.0 >60 Glomerula r Filtration Rate [place] ([facility]) blood urea nitrogen 16 mg/dL 7-18 Blood Urea Nitro gen [place] ([facility]) creatinine for GFR 1.03 mg/dL 0.70-1.30 Creatinine for GF R [place] ([facility]) potassium serum 4.0 mEq/L 3.5-5.1 Potassium Serum ATHE NA ([facility]) carbon dioxide level 28 mEq/L 21-32 Carbon Dioxide Level [facility] ([facility]) chloride level 101 mEq/L 98-107 Chloride Level [facility] ([facility]) sodium level 135 mEq/L 136-145 Below low normal Sodium Level AT[facility] NA ([facility]) calcium level 9.7 mg/dL 8.5-10.1 Calcium Level [facility] ( [facility]) anion gap 6 mEq/L 8-16 Below low normal Anion Gap [facility] ( [facility]) ID Date Data Source [id number] 08/09/2020 12:40:00 PM EDT [facility] ([facility]) Name Value Range Interpretation Code Description Data Becky rce(s) Supporting Document(s) AST/SGOT 24 U/L 7-37 AST/SGOT [facility] ([facility]) alkaline phosphatase 101 U/L 45-117 Alkaline Phosph atase [facility] ([facility]) ALT/SGPT 39 U/L 12-78 ALT/SGPT [facility] ([facility]) bilirubin,direct 0.1 mg/dL 0.0-0.2 Bilirubin,direct AT [place] ([facility]) bilirubin,total 0.4 mg/dL 0.2-1.0 Bilirubin,total AT[facility] ([facility]) total protein 7.6 gm/dL 6.4-8.2 Total Protein [facility] ( [facility]) albumin/globulin ratio Albumin/globu bianca Ratio [facility] ([facility]) albumin 3.9 gm/dL 3.2-5.2 Albumin [facility] ([facility]) ID Date Data Source [id number] 08/09/2020 12:40:00 PM EDT [facility] ([facility]) Name Value Range Interpretation Code Description Data Becky rce(s) Supporting Document(s) red blood count 5.23 10 4.30-6.10 Red Blood Count [facility] ([facility]) white blood count 7.4 10 4.0-10.0 White Blood Count [facility] ([facility]) mean corpuscular volume 88.0 fL 80.0-96.0 Mean Corpusc ular Volume [facility] ([facility]) hemoglobin 15.5 g/dL 13.5-17.5 Hemoglobin [facility] ([facility]) hematocrit 46.0 % 42.0-52.0 Hematocrit [facility] ([facility]) red cell distribution width 12.5 % 11.5-14.5 Red Cell Distribution Width [facility] ([facility]) mean corpuscular HGB conc 33.7 g/dL 32.0-36.5 Mean Corpu scular HGB Conc [facility] ([facility]) mean corpuscular hemoglobin 29.6 pg 27.0-33.0 Mean Cor puscular Hemoglobin [facility] ([facility]) platelet count, automated 186 10 150-450 Platelet C ount, Automated [facility] ([facility]) lymph % 23.0 % 24.0-44.0 Below low normal Lymph % [facility] ( [facility]) neutrophils % 60.8 % 36.0-66.0 Neutrophils % [facility] ( [facility]) mono % 7.6 % 0.0-5.0 Above high normal [place] % [place] ([facility]) immature granulocyte % 1.8 % 0-3.0 Immature Gran ulocyte % [facility] ([facility]) eos % 5.8 % 0.0-3.0 Above high normal Eos % [facility] ([facility]) baso % 1.0 % 0.0-1.0 Baso % [facility] ([facility]) lymph # 1.7 10 1.5-5.0 Lymph # [facility] ([facility]) neutrophils # 4.5 10 1.5-8.5 Neutrophils # [facility] ( [facility]) nucleated red blood cell % 0.0 % 0-0 Nucleated Red Blood Cell % [facility] ([facility]) mono # 0.6 10 0.0-0.8 [place] # [facility] ([facility]) baso # 0.1 10 0.0-0.2 Baso # [facility] ([facility]) eos # 0.4 10 0.0-0.5 Eos # [facility] ([facility]) ID Date Data Source [id number] 08/09/2020 12:40:00 PM EDT [facility] ([facility]) Name Value Range Interpretation Code Description Data Becky rce(s) Supporting Document(s) venous partial pressure CO2 42.6 mmHg 38.0-50.0 Venous P artial Pressure CO2 [facility] ([facility]) venous pH 7.320 units 7.330-7.430 Below low normal Venous pH [place] ([facility]) venous partial pressure O2 62.5 mmHg 30.0-50.0 Above high nor mal Venous Partial Pressure O2 [facility] ([facility]) venous total CO2 22.8 mEq/L 24.0-28.0 Below low normal Venous Total CO2 [place] ([facility]) venous base excess -2.0-2.0 Below low normal Venous Base Excess [facility] ([facility]) venous standard HCO3 20.7 mEq/L Venous Standard HCO3 [facility] ([facility]) venous HCO3 21.5 mEq/L 23.0-27.0 Below low normal Venous HCO3 [place] ([facility]) venous O2 saturation 91.2 % 60.0-80.0 Above high normal Venous O 2 Saturation [place] ([facility]) ID Date Data Source [id number] 08/09/2020 12:40:00 PM EDT [facility] ([facility]) Name Value Range Interpretation Code Description Data Becky rce(s) Supporting Document(s) Hemoglobin A1c/Hemoglobin.total in Blood 8.6 % Hemoglobin a1C [facility] ([facility]) estimated average glucose 200 mg/dL 60-110 Above high norm al Estimated Average Glucose [place] ([facility]) ID Date Data Source [id number] 08/09/2020 12:40:00 PM EDT [facility] ([facility]) Name Value Range Interpretation Code Description Data Becky rce(s) Supporting Document(s) Hemoglobin A1c/Hemoglobin.total in Blood 8.6 % Hemoglobin a1C [facility] ([facility]) estimated average glucose 200 mg/dL 60-110 Above high norm al Estimated Average Glucose [place] ([facility]) ID Date Data Source [id number] 08/09/2020 12:40:00 PM EDT [facility] ([facility]) Name Value Range Interpretation Code Description Data Becky rce(s) Supporting Document(s) acetone/ketone 1.22 mg/dL <2.81 Acetone/ketone [place] ([facility]) ID Date Data Source [id number] 08/09/2020 12:40:00 PM EDT [place] ([facility]) Name Value Range Interpretation Code Description Data Becky rce(s) Supporting Document(s) glucose, fasting 210 mg/dL 70-100 Above high normal Glucose, Fas ting [facility] ([facility]) sodium level 135 mEq/L 136-145 Below low normal Sodium Level ATHE NA ([facility]) blood urea nitrogen 16 mg/dL 7-18 Blood Urea Nitro gen [facility] ([facility]) creatinine for GFR 1.03 mg/dL 0.70-1.30 Creatinine for GF R [facility] ([facility]) glomerular filtration rate > 60.0 >60 Glomerula r Filtration Rate [facility] ([facility]) carbon dioxide level 28 mEq/L 21-32 Carbon Dioxide Level [facility] ([facility]) chloride level 101 mEq/L 98-107 Chloride Level [facility] ([facility]) potassium serum 4.0 mEq/L 3.5-5.1 Potassium Serum ATHE NA ([facility]) anion gap 6 mEq/L 8-16 Below low normal Anion Gap [facility] ( [facility]) calcium level 9.7 mg/dL 8.5-10.1 Calcium Level [place] ( [facility]) ID Date Data Source [id number] 08/09/2020 12:40:00 PM EDT [facility] ([facility]) Name Value Range Interpretation Code Description Data Becky rce(s) Supporting Document(s) alkaline phosphatase 101 U/L 45-117 Alkaline Phosph atase [facility] ([facility]) ALT/SGPT 39 U/L 12-78 ALT/SGPT [facility] ([facility]) AST/SGOT 24 U/L 7-37 AST/SGOT [facility] ([facility]) bilirubin,total 0.4 mg/dL 0.2-1.0 Bilirubin,total ATHE NA ([facility]) bilirubin,direct 0.1 mg/dL 0.0-0.2 Bilirubin,direct AT [place] ([facility]) total protein 7.6 gm/dL 6.4-8.2 Total Protein [facility] ( [facility]) albumin 3.9 gm/dL 3.2-5.2 Albumin [facility] ([facility]) albumin/globulin ratio Albumin/globu bianca Ratio [facility] ([facility]) ID Date Data Source [id number] 08/09/2020 12:40:00 PM EDT [facility] ([facility]) Name Value Range Interpretation Code Description Data Becky rce(s) Supporting Document(s) white blood count 7.4 10 4.0-10.0 White Blood Count [facility] ([facility]) red blood count 5.23 10 4.30-6.10 Red Blood Count ATHE NA ([facility]) hematocrit 46.0 % 42.0-52.0 Hematocrit [facility] ([facility]) hemoglobin 15.5 g/dL 13.5-17.5 Hemoglobin [facility] ([facility]) mean corpuscular volume 88.0 fL 80.0-96.0 Mean Corpusc ular Volume JEFF ([facility]) mean corpuscular hemoglobin 29.6 pg 27.0-33.0 Mean Cor puscular Hemoglobin [facility] ([facility]) mean corpuscular HGB conc 33.7 g/dL 32.0-36.5 Mean Corpu scular HGB Conc [facility] ([facility]) platelet count, automated 186 10 150-450 Platelet C ount, Automated [facility] ([facility]) red cell distribution width 12.5 % 11.5-14.5 Red Cell Distribution Width [facility] ([facility]) lymph % 23.0 % 24.0-44.0 Below low normal Lymph % JE[facility] ( [facility]) neutrophils % 60.8 % 36.0-66.0 Neutrophils % [facility] ( [facility]) mono % 7.6 % 0.0-5.0 Above high normal [place] % [facility] ([facility]) baso % 1.0 % 0.0-1.0 Baso % [place] ([facility]) eos % 5.8 % 0.0-3.0 Above high normal Eos % [place] ([facility]) immature granulocyte % 1.8 % 0-3.0 Immature Gran ulocyte % [place] ([facility]) nucleated red blood cell % 0.0 % 0-0 Nucleated Red Blood Cell % [place] ([facility]) neutrophils # 4.5 10 1.5-8.5 Neutrophils # [facility] ( [facility]) lymph # 1.7 10 1.5-5.0 Lymph # [facility] ([facility]) mono # 0.6 10 0.0-0.8 [place] # [facility] ([facility]) eos # 0.4 10 0.0-0.5 Eos # [facility] ([facility]) baso # 0.1 10 0.0-0.2 Baso # [facility] ([facility]) ID Date Data Source [id number] 08/09/2020 12:40:00 PM EDT [place] ([facility]) Name Value Range Interpretation Code Description Data Becky rce(s) Supporting Document(s) venous pH 7.320 units 7.330-7.430 Below low normal Venous pH [facility] ([facility]) venous partial pressure CO2 42.6 mmHg 38.0-50.0 Venous P artial Pressure CO2 [place] ([facility]) venous partial pressure O2 62.5 mmHg 30.0-50.0 Above high nor mal Venous Partial Pressure O2 [facility] ([facility]) venous base excess -2.0-2.0 Below low normal Venous Base Excess [place] ([facility]) venous HCO3 21.5 mEq/L 23.0-27.0 Below low normal Venous HCO3 [place] ([facility]) venous total CO2 22.8 mEq/L 24.0-28.0 Below low normal Venous Total CO2 [place] ([facility]) venous O2 saturation 91.2 % 60.0-80.0 Above high normal Venous O 2 Saturation [place] ([facility]) venous standard HCO3 20.7 mEq/L Venous Standard HCO3 [place] ([facility]) ID Date Data Source [id number] 08/09/2020 11:49:00 AM EDT [facility]) Name Value Range Interpretation Code Description Data Becky rce(s) Supporting Document(s) bedside glucose 233 mg/dL 70-105 Above high normal Bedside Gluco se [facility]) ID Date Data Source [id number] 08/09/2020 11:49:00 AM EDT [facility]) Name Value Range Interpretation Code Description Data Becky rce(s) Supporting Document(s) bedside glucose 233 mg/dL 70-105 Above high normal Bedside Gluco se [facility]) ID Date Data Source [id number] 08/09/2020 11:49:00 AM EDT [facility]) Name Value Range Interpretation Code Description Data Becky rce(s) Supporting Document(s) bedside glucose 233 mg/dL 70-105 Above high normal Bedside Gluco se [facility]) ID Date Data Source [id number] 08/09/2020 11:49:00 AM EDT [facility]) Name Value Range Interpretation Code Description Data Becky rce(s) Supporting Document(s) bedside glucose 233 mg/dL 70-105 Above high normal Bedside Gluco se [place] ([facility]) ID Date Data Source [id number] 08/09/2020 11:49:00 AM EDT [facility]) Name Value Range Interpretation Code Description Data Becky rce(s) Supporting Document(s) bedside glucose 233 mg/dL 70-105 Above high normal Bedside Gluco se [facility] ([facility]) ID Date Data Source [id number] 08/09/2020 11:49:00 AM EDT [facility]) Name Value Range Interpretation Code Description Data Becky rce(s) Supporting Document(s) bedside glucose 233 mg/dL 70-105 Above high normal Bedside Gluco se [place] ([facility]) ID Date Data Source [id number] 08/09/2020 11:49:00 AM EDT [facility]) Name Value Range Interpretation Code Description Data Becky rce(s) Supporting Document(s) bedside glucose 233 mg/dL 70-105 Above high [facility] Data Source [id number] 08/09/2020 11:49:00 AM EDT [facility]) Name Value Range Interpretation Code Description Data Becky rce(s) Supporting Document(s) bedside glucose 233 mg/dL 70-105 Above high normal Bedside Gluco se [facility]) ID Date Data Source [id number] 08/09/2020 11:49:00 AM EDT [facility]) Name Value Range Interpretation Code Description Data Becky rce(s) Supporting Document(s) bedside glucose 233 mg/dL 70-105 Above high normal Bedside Gluco se [facility]) ID Date Data Source [id number] 08/09/2020 11:49:00 AM EDT [facility]) Name Value Range Interpretation Code Description Data Becky rce(s) Supporting Document(s) bedside glucose 233 mg/dL 70-105 Above high normal Bedside Gluco se [place] ([facility]) ID Date Data Source [id number] 08/09/2020 11:49:00 AM EDT [facility]) Name Value Range Interpretation Code Description Data Becky rce(s) Supporting Document(s) bedside glucose 233 mg/dL 70-105 Above high normal Bedside Gluco se [facility]) ID Date Data Source [id number] 08/09/2020 11:49:00 AM EDT [facility]) Name Value Range Interpretation Code Description Data Becky rce(s) Supporting Document(s) bedside glucose 233 mg/dL 70-105 Above high normal Bedside Gluco se [facility]) ID Date Data Source [id number] 08/09/2020 11:49:00 AM EDT [facility]) Name Value Range Interpretation Code Description Data Becky rce(s) Supporting Document(s) bedside glucose 233 mg/dL 70-105 Above high normal Bedside Gluco se [facility]) ID Date Data Source [id number] 08/09/2020 11:49:00 AM EDT [facility]) Name Value Range Interpretation Code Description Data Becky rce(s) Supporting Document(s) bedside glucose 233 mg/dL 70-105 Above high normal Bedside Gluco se [facility]) ID Date Data Source [id number] 08/09/2020 11:49:00 AM EDT [facility]) Name Value Range Interpretation Code Description Data Becky rce(s) Supporting Document(s) bedside glucose 233 mg/dL 70-105 Above high normal Bedside Gluco se [facility]) ID Date Data Source [id number] 08/09/2020 11:49:00 AM EDT [facility]) Name Value Range Interpretation Code Description Data Becky rce(s) Supporting Document(s) bedside glucose 233 mg/dL 70-105 Above high normal Bedside Gluco se [facility]) ID Date Data Source [id number] 08/09/2020 11:49:00 AM EDT [facility]) Name Value Range Interpretation Code Description Data Becky rce(s) Supporting Document(s) bedside glucose 233 mg/dL 70-105 Above high normal Bedside Gluco se [facility]) ID Date Data Source [id number] 08/09/2020 12:00:00 AM EDT [facility]) Name Value Range Interpretation Code Description Data Becky rce(s) Supporting Document(s) ID Date Data Source [id number] 07/28/2020 01:20:20 PM EDT [facility] Measurements & CalculationsHeight: 68 inches (5 [...] ibuprofen. Worsening over the past 4-5 months.Tr dnona to stay active and eat healthy.Blood sugars 200-300.HPI performed by: Steven Veloz MD, July 28, 2020 1:57 PMTransitions of Care InboundMedication Reconciliation & ReviewMedication List was reviewed and/or updated during this visit, including review of any [id number] medications, herbal therapies, and/or supplements.Allergy ReviewAllergy List [...] Plan Problems:Assessed:Type 2 diabetes mellitus without complications (NFW40-L80.9) Assessment: Instructions: Suboptimal control.Increase Basaglar from 20 [...] MG ORAL TABLET EXTENDED RELEASEVITAMIN D (ERGOCALCIFEROL) [id number] UNIT ORAL CAPSULEMedication Changes:Added: METFORMIN HCL ER [...] (Moderate)Orders:Adult - Ofc Vst, EST, Level III [CPT-21125] COMP METABOLIC PANEL [CPT-51779] HgBA1c [CPT-07705] LIPID PANEL [CPT-29084] TSH [CPT-82303] T-4 free [CPT-27354] Name Value Range Interpretation Code Description Data Becky rce(s) Supporting Document(s) Procedure Social History Code Duration Value Status Description Data Source(s ) Smoking 07/02/2021 12:00:00 AM EDT Unknown if ever smoked comp leted Unknown if ever smoked [facility] ([facility]) Smoking 06/14/2021 12:00:00 AM EDT Unknown if ever smoked comp leted Unknown if ever smoked [facility] ([facility]) Smoking 05/31/2021 12:00:00 AM EDT Unknown if ever smoked comp leted Unknown if ever smoked [facility] ([facility]) Smoking 05/30/2021 12:00:00 AM EDT Unknown if ever smoked comp leted Unknown if ever smoked [facility] ([facility]) Smoking 05/01/2021 12:00:00 AM EDT Unknown if ever smoked comp leted Unknown if ever smoked [facility] ([facility]) Smoking 03/26/2021 12:00:00 AM EDT Unknown if ever smoked comp leted Unknown if ever smoked [facility] ([facility]) Smoking 02/26/2021 12:00:00 AM EDT Unknown if ever smoked comp leted Unknown if ever smoked [facility] ([facility]) Smoking 02/07/2021 12:00:00 AM EDT Unknown if ever smoked comp leted Unknown if ever smoked [facility] ([facility]) Smoking 01/18/2021 12:00:00 AM EDT Unknown if ever smoked comp leted Unknown if ever smoked [facility] ([facility]) Smoking 12/28/2020 12:00:00 AM EDT Unknown if ever smoked comp leted Unknown if ever smoked [facility] ([facility]) Smoking 12/11/2020 12:00:00 AM EST Unknown if ever smoked comp leted Unknown if ever smoked [facility] ([facility]) Smoking 12/07/2020 12:00:00 AM EST Unknown if ever smoked comp leted Unknown if ever smoked [facility] ([facility]) Smoking 11/07/2020 12:00:00 AM EST Unknown if ever smoked comp leted Unknown if ever smoked [facility] ([facility]) Smoking 10/25/2020 12:00:00 AM EST Unknown if ever smoked comp leted Unknown if ever smoked [facility] ([facility]) Smoking 10/20/2020 12:00:00 AM EST Unknown if ever smoked comp leted Unknown if ever smoked [facility] ([facility]) Smoking 09/28/2020 12:00:00 AM EST Unknown if ever smoked comp leted Unknown if ever smoked [facility] ([facility]) Smoking 09/21/2020 12:00:00 AM EST Unknown if ever smoked comp leted Unknown if ever smoked [facility] ([facility]) Smoking 09/11/2020 12:00:00 AM EST Unknown if ever smoked comp leted Unknown if ever smoked [facility] ([facility]) Smoking 08/24/2020 12:00:00 AM EST Unknown if ever smoked comp leted Unknown if ever smoked [facility] ([facility]) Smoking 08/17/2020 12:00:00 AM EST Unknown if ever smoked comp leted Unknown if ever smoked [facility] ([facility]) Smoking 07/25/2020 12:00:00 AM EDT Unknown if ever smoked comp leted Unknown if ever smoked [facility] ([facility]) Smoking 07/20/2020 12:00:00 AM EDT Unknown if ever smoked comp leted Unknown if ever smoked [facility] ([facility]) Smoking 07/06/2020 12:00:00 AM EDT Unknown if ever smoked comp leted Unknown if ever smoked [facility] ([facility]) Vital Signs ID Date Data Source UNK Name Value Range Interpretation Code Description Data Source(s) Diastolic blood pressure 78 mm[Hg] 78 mm[Hg] JEFF ([facility]) Body height 68 [in_i] 68 [in_i] JEFF ([facility]) Body mass index (BMI) [Ratio] 37.9 kg/m2 37.9 k g/m2 JEFF ([facility]) Systolic blood pressure 109 mm[Hg] 109 mm[Hg] A THENA ([facility]) Body weight 3992 [oz_av] 3992 [oz_av] JEFF ([facility]) Diastolic blood pressure 90 mm[Hg] 90 mm[Hg] JEFF ([facility]) Body height 68 [in_i] 68 [in_i] JEFF ([facility]) Body mass index (BMI) [Ratio] 38.9 kg/m2 38.9 k g/m2 JEFF ([facility]) Systolic blood pressure 135 mm[Hg] 135 mm[Hg] [facility] Body weight 4096 [oz_av] 4096 [oz_av] JEFF ([facility]) Diastolic blood pressure 90 mm[Hg] 90 mm[Hg] JEFF ([facility]) Body height 68 [in_i] 68 [in_i] JEFF ([facility]) Body mass index (BMI) [Ratio] 38.9 kg/m2 38.9 k g/m2 JEFF ([facility]) Systolic blood pressure 135 mm[Hg] 135 mm[Hg] [facility] Body weight 4096 [oz_av] 4096 [oz_av] JEFF ([facility]) Diastolic blood pressure 94 mm[Hg] 94 mm[Hg] JEFF ([facility]) Body height 68 [in_i] 68 [in_i] JEFF ([facility]) Body mass index (BMI) [Ratio] 39.4 kg/m2 39.4 k g/m2 JEFF ([facility]) Body weight 4150 [oz_av] 4150 [oz_av] JEFF ([facility]) Systolic blood pressure 135 mm[Hg] 135 mm[Hg] [facility]) Diastolic blood pressure 94 mm[Hg] 94 mm[Hg] JEFF ([facility]) Body height 68 [in_i] 68 [in_i] JEFF ([facility]) Body mass index (BMI) [Ratio] 39.4 kg/m2 39.4 k g/m2 JEFF ([facility]) Systolic blood pressure 135 mm[Hg] 135 mm[Hg] A THENA ([facility]) Body weight 4150 [oz_av] 4150 [oz_av] JEFF ([facility]) Diastolic blood pressure 94 mm[Hg] 94 mm[Hg] JEFF ([facility]) Body height 68 [in_i] 68 [in_i] JEFF ([facility]) Body mass index (BMI) [Ratio] 39.4 kg/m2 39.4 k g/m2 JEFF ([facility]) Systolic blood pressure 135 mm[Hg] 135 mm[Hg] [facility] Body weight 4150 [oz_av] 4150 [oz_av] JEFF ([facility]) Diastolic blood pressure 88 mm[Hg] 88 mm[Hg] JEFF ([facility]) Body height 68 [in_i] 68 [in_i] JEFF ([facility]) Body mass index (BMI) [Ratio] 39.4 kg/m2 39.4 k g/m2 JEFF ([facility]) Systolic blood pressure 129 mm[Hg] 129 mm[Hg] [facility]) Body weight 4150 [oz_av] 4150 [oz_av] JEFF ([facility]) Systolic blood pressure 129 mm[Hg] 129 mm[Hg] A THENA ([facility]) Body mass index (BMI) [Ratio] 39.4 kg/m2 39.4 k g/m2 JEFF ([facility]) Diastolic blood pressure 88 mm[Hg] 88 mm[Hg] JEFF ([facility]) Body height 68 [in_i] 68 [in_i] JEFF ([facility]) Body weight 4150 [oz_av] 4150 [oz_av] JEFF ([facility]) Diastolic blood pressure 88 mm[Hg] 88 mm[Hg] JEFF ([facility]) Body height 68 [in_i] 68 [in_i] JEFF ([facility]) Body mass index (BMI) [Ratio] 39.4 kg/m2 39.4 k g/m2 JEFF ([facility]) Systolic blood pressure 129 mm[Hg] 129 mm[Hg] A THENA ([facility]) Body weight 4150 [oz_av] 4150 [oz_av] JEFF ([facility]) Diastolic blood pressure 88 mm[Hg] 88 mm[Hg] JEFF ([facility]) Body height 68 [in_i] 68 [in_i] JEFF ([facility]) Body mass index (BMI) [Ratio] 39.4 kg/m2 39.4 k g/m2 JEFF ([facility]) Systolic blood pressure 129 mm[Hg] 129 mm[Hg] A HARISA ([facility]) Body weight 4150 [oz_av] 4150 [oz_av] JEFF ([facility]) Diastolic blood pressure 88 mm[Hg] 88 mm[Hg] JEFF ([facility]) Body height 68 [in_i] 68 [in_i] JEFF ([facility]) Body mass index (BMI) [Ratio] 39.4 kg/m2 39.4 k g/m2 JEFF ([facility]) Systolic blood pressure 129 mm[Hg] 129 mm[Hg] A HARISA ([facility]) Body weight 4150 [oz_av] 4150 [oz_av] JEFF ([facility]) Diastolic blood pressure 88 mm[Hg] 88 mm[Hg] JEFF ([facility]) Body height 68 [in_i] 68 [in_i] JEFF ([facility]) Body mass index (BMI) [Ratio] 39.4 kg/m2 39.4 k g/m2 JEFF ([facility]) Systolic blood pressure 129 mm[Hg] 129 mm[Hg] A HARISA ([facility]) Body weight 4150 [oz_av] 4150 [oz_av] JEFF ([facility]) Body weight 172.00 [lb_av] 172.00 [lb_av] MEDEN T ([facility] Systolic blood pressure 123 mm[Hg] 123 mm[Hg] M EDENT ([facility] Diastolic blood pressure 82 mm[Hg] 82 mm[Hg] MEDENT ([facility] Heart rate 85 /min 85 /min MEDENT ([facility] Diastolic blood pressure 82 mm[Hg] 82 mm[Hg] JEFF ([facility]) Body height 68 [in_i] 68 [in_i] JEFF ([facility]) Body mass index (BMI) [Ratio] 39.4 kg/m2 39.4 k g/m2 JEFF ([facility]) Systolic blood pressure 123 mm[Hg] 123 mm[Hg] A THENA ([facility]) Body weight 4150 [oz_av] 4150 [oz_av] JEFF ([facility]) Diastolic blood pressure 82 mm[Hg] 82 mm[Hg] JEFF ([facility]) Body height 68 [in_i] 68 [in_i] JEFF ([facility]) Body mass index (BMI) [Ratio] 39.4 kg/m2 39.4 k g/m2 JEFF ([facility]) Systolic blood pressure 123 mm[Hg] 123 mm[Hg] [facility]) Body weight 4150 [oz_av] 4150 [oz_av] JEFF ([facility]) Diastolic blood pressure 82 mm[Hg] 82 mm[Hg] JEFF ([facility]) Body height 68 [in_i] 68 [in_i] JEFF ([facility]) Body mass index (BMI) [Ratio] 39.4 kg/m2 39.4 k g/m2 JEFF ([facility]) Systolic blood pressure 123 mm[Hg] 123 mm[Hg] A THENA ([facility]) Body weight 4150 [oz_av] 4150 [oz_av] JEFF ([facility]) Diastolic blood pressure 82 mm[Hg] 82 mm[Hg] JEFF ([facility]) Body height 68 [in_i] 68 [in_i] JEFF ([facility]) Body mass index (BMI) [Ratio] 39.4 kg/m2 39.4 k g/m2 JEFF ([facility]) Systolic blood pressure 123 mm[Hg] 123 mm[Hg] A THENA ([facility]) Body weight 4150 [oz_av] 4150 [oz_av] JEFF ([facility]) Diastolic blood pressure 82 mm[Hg] 82 mm[Hg] JEFF ([facility]) Body height 68 [in_i] 68 [in_i] JEFF ([facility]) Body mass index (BMI) [Ratio] 39.4 kg/m2 39.4 k g/m2 JEFF ([facility]) Systolic blood pressure 123 mm[Hg] 123 mm[Hg] A THENA ([facility]) Body weight 4150 [oz_av] 4150 [oz_av] JEFF ([facility]) Diastolic blood pressure 82 mm[Hg] 82 mm[Hg] JEFF ([facility]) Body height 68 [in_i] 68 [in_i] JEFF ([facility]) Body mass index (BMI) [Ratio] 39.4 kg/m2 39.4 k g/m2 JEFF ([facility]) Systolic blood pressure 123 mm[Hg] 123 mm[Hg] A THENA ([facility]) Body weight 4150 [oz_av] 4150 [oz_av] JEFF ([facility]) Body height 68 [in_i] 68 [in_i] JEFF ([facility]) Body mass index (BMI) [Ratio] 39.4 kg/m2 39.4 k g/m2 JEFF ([facility]) Systolic blood pressure 123 mm[Hg] 123 mm[Hg] A THENA ([facility]) Body weight 4150 [oz_av] 4150 [oz_av] JEFF ([facility]) Diastolic blood pressure 82 mm[Hg] 82 mm[Hg] JEFF ([facility]) Body height 68 [in_i] 68 [in_i] JEFF ([facility]) Body height 68 [in_i] 68 [in_i] JEFF ([facility]) Body height 68 [in_i] 68 [in_i] JEFF ([facility]) Body height 68 [in_i] 68 [in_i] JEFF ([facility]) Body height 68 [in_i] 68 [in_i] JEFF ([facility]) Body height 68 [in_i] 68 [in_i] JEFF ([facility]) Body height 68 [in_i] 68 [in_i] JEFF ([facility]) Body height 68 [in_i] 68 [in_i] JEFF ([facility]) Body height 68 [in_i] 68 [in_i] JEFF ([facility]) Body height 0.00 in Normal (applies to non-numeric resu lts) 0.00 in [facility] Body weight Measured 0.00 lbs Normal (applies to n on-numeric results) 0.00 lbs [facility] Body mass index (BMI) [Ratio] 0.00 kg/m2 No rmal (applies to non-numeric results) 0.00 kg/m2 [facility] ([facility]) Diastolic blood pressure 0 mm[Hg] Normal (applies to non-numeric results) 0 mm[Hg] [facility] ([facility]) Systolic blood pressure 0 mm[Hg] Normal (applies t o non-numeric results) 0 mm[Hg] [facility] ([facility]) Body mass index (BMI) [Ratio] 39.07 kg/m2 39.07 kg/m2 eCW1 ([facility]) Body weight 257 [lb_av] 257 [lb_av] eCW1 ([facility]) Body height 68 [in_i] 68 [in_i] eCW1 ([facility]) Body weight 258.50 [lb_av] 258.50 [lb_av] MEDEN T ([facility] ) Oxygen saturation in Arterial blood by Pulse oximetry 92 % 92 % MEDENT ([facility] ) Systolic blood pressure 110 mm[Hg] 110 mm[Hg] M EDENT ([facility] ) Diastolic blood pressure 78 mm[Hg] 78 mm[Hg] MED[facility] ([facility] ) Heart rate 90 /min 90 /min [facility] ([facility] ) Body temperature 97.1 [degF] 97.1 [degF] MED[facility] ([facility] ) Body height 68 [in_i] 68 [in_i] MEDENT ([facility] ) 5'8" Body mass index (BMI) [Ratio] 39.3 kg/m2 39.3 k g/m2 MEDENT ([facility] ) Body weight 3334 [oz_av] 3334 [oz_av] JEFF ([facility]) Body height 68 [in_i] 68 [in_i] JEFF ([facility]) Body mass index (BMI) [Ratio] 31.7 kg/m2 31.7 k g/m2 JEFF ([facility]) Systolic blood pressure 121 mm[Hg] 121 mm[Hg] A [facility] ([facility]) Diastolic blood pressure 85 mm[Hg] 85 mm[Hg] JEFF ([facility]) Body height 68 [in_i] 68 [in_i] JEFF ([facility]) Diastolic blood pressure 85 mm[Hg] 85 mm[Hg] JEFF ([facility]) Systolic blood pressure 121 mm[Hg] 121 mm[Hg] A [facility] ([facility]) Body weight 3334 [oz_av] 3334 [oz_av] JEFF ([facility]) Body mass index (BMI) [Ratio] 31.7 kg/m2 31.7 k g/m2 JEFF ([facility]) Diastolic blood pressure 85 mm[Hg] 85 mm[Hg] JEFF ([facility]) Body mass index (BMI) [Ratio] 31.7 kg/m2 31.7 k g/m2 JEFF ([facility]) Systolic blood pressure 121 mm[Hg] 121 mm[Hg] A [facility] ([facility]) Body weight 3334 [oz_av] 3334 [oz_av] JEFF ([facility]) Body height 68 [in_i] 68 [in_i] JEFF ([facility]) Body mass index (BMI) [Ratio] 31.7 kg/m2 31.7 k g/m2 JEFF ([facility]) Diastolic blood pressure 85 mm[Hg] 85 mm[Hg] JEFF ([facility]) Body height 68 [in_i] 68 [in_i] JEFF ([facility]) Systolic blood pressure 121 mm[Hg] 121 mm[Hg] A THEN ([facility]) Body weight 3334 [oz_av] 3334 [oz_av] JEFF ([facility]) Diastolic blood pressure 85 mm[Hg] 85 mm[Hg] JEFF ([facility]) Body height 68 [in_i] 68 [in_i] JEFF ([facility]) Body mass index (BMI) [Ratio] 31.7 kg/m2 31.7 k g/m2 JEFF ([facility]) Systolic blood pressure 121 mm[Hg] 121 mm[Hg] A THENA ([facility]) Body weight 3334 [oz_av] 3334 [oz_av] JEFF ([facility]) Diastolic blood pressure 85 mm[Hg] 85 mm[Hg] JEFF ([facility]) Body height 68 [in_i] 68 [in_i] JEFF ([facility]) Body mass index (BMI) [Ratio] 31.7 kg/m2 31.7 k g/m2 JEFF ([facility]) Systolic blood pressure 121 mm[Hg] 121 mm[Hg] A THENA ([facility]) Body weight 3334 [oz_av] 3334 [oz_av] JEFF ([facility]) Diastolic blood pressure 85 mm[Hg] 85 mm[Hg] JEFF ([facility]) Body height 68 [in_i] 68 [in_i] JEFF ([facility]) Body mass index (BMI) [Ratio] 31.7 kg/m2 31.7 k g/m2 JEFF ([facility]) Systolic blood pressure 121 mm[Hg] 121 mm[Hg] A THENA ([facility]) Body weight 3334 [oz_av] 3334 [oz_av] JEFF ([facility]) Diastolic blood pressure 85 mm[Hg] 85 mm[Hg] JEFF ([facility]) Body height 68 [in_i] 68 [in_i] JEFF ([facility]) Body mass index (BMI) [Ratio] 31.7 kg/m2 31.7 k g/m2 JEFF ([facility]) Systolic blood pressure 121 mm[Hg] 121 mm[Hg] A THENA ([facility]) Body weight 3334 [oz_av] 3334 [oz_av] JEFF ([facility]) Diastolic blood pressure 85 mm[Hg] 85 mm[Hg] JEFF ([facility]) Body height 68 [in_i] 68 [in_i] JEFF ([facility]) Body mass index (BMI) [Ratio] 31.7 kg/m2 31.7 k g/m2 JEFF ([facility]) Systolic blood pressure 121 mm[Hg] 121 mm[Hg] A THENA ([facility]) Body weight 3334 [oz_av] 3334 [oz_av] JEFF ([facility]) Diastolic blood pressure 85 mm[Hg] 85 mm[Hg] JEFF ([facility]) Body height 68 [in_i] 68 [in_i] JEFF ([facility]) Body mass index (BMI) [Ratio] 31.7 kg/m2 31.7 k g/m2 JEFF ([facility]) Systolic blood pressure 121 mm[Hg] 121 mm[Hg] A THENA ([facility]) Body weight 3334 [oz_av] 3334 [oz_av] JEFF ([facility]) Diastolic blood pressure 85 mm[Hg] 85 mm[Hg] JEFF ([facility]) Body height 68 [in_i] 68 [in_i] JEFF ([facility]) Body mass index (BMI) [Ratio] 31.7 kg/m2 31.7 k g/m2 JEFF ([facility]) Systolic blood pressure 121 mm[Hg] 121 mm[Hg] A THENA ([facility]) Body weight 3334 [oz_av] 3334 [oz_av] JEFF ([facility]) Diastolic blood pressure 85 mm[Hg] 85 mm[Hg] JEFF ([facility]) Body height 68 [in_i] 68 [in_i] JEFF ([facility]) Body mass index (BMI) [Ratio] 31.7 kg/m2 31.7 k g/m2 JEFF ([facility]) Systolic blood pressure 121 mm[Hg] 121 mm[Hg] A THENA ([facility]) Body weight 3334 [oz_av] 3334 [oz_av] JEFF ([facility]) Body weight 260.6 [lb_av] 260.6 [lb_av] eCW1 ([facility]) Body height 68 [in_i] 68 [in_i] eCW1 ([facility]) Body mass index (BMI) [Ratio] 39.62 kg/m2 39.62 kg/m2 W1 ([facility]) Diastolic blood pressure 0 mm[Hg] Normal (applies to non-numeric results) 0 mm[Hg] [facility] ([facility]) Body height 0.00 in Normal (applies to non-numeric resu lts) 0.00 in [facility] Body weight Measured 0.00 lbs Normal (applies to n on-numeric results) 0.00 lbs [facility] ([facility]) Body mass index (BMI) [Ratio] 0.00 kg/m2 No rmal (applies to non-numeric results) 0.00 kg/m2 [facility] ([facility]) Systolic blood pressure 0 mm[Hg] Normal (applies t o non-numeric results) 0 mm[Hg] [facility] ([facility]) Diastolic blood pressure 84 mm[Hg] 84 mm[Hg] MEDENT ([facility] ) Heart rate 87 /min 87 /min MEDENT ([facility] ) Body temperature 96.4 [degF] 96.4 [degF] MEDENT ([facility] ) Body weight 263.31 [lb_av] 263.31 [lb_av] MEDEN T ([facility] ) Body mass index (BMI) [Ratio] 40.0 kg/m2 40.0 k g/m2 MEDENT ([facility] ) Oxygen saturation in Arterial blood by Pulse oximetry 97 % 97 % MEDENT ([facility] ) Systolic blood pressure 122 mm[Hg] 122 mm[Hg] M EDENT ([facility] ) Body height 68 [in_i] 68 [in_i] MEDENT ([facility] ) 5'8" Body height 68 [in_i] 68 [in_i] JEFF ([facility]) Body mass index (BMI) [Ratio] 40 kg/m2 40 kg/ m2 JEFF ([facility]) Systolic blood pressure 115 mm[Hg] 115 mm[Hg] [facility] Body weight 4208 [oz_av] 4208 [oz_av] JEFF ([facility]) Diastolic blood pressure 78 mm[Hg] 78 mm[Hg] JEFF ([facility]) Diastolic blood pressure 78 mm[Hg] 78 mm[Hg] JEFF ([facility]) Body height 68 [in_i] 68 [in_i] JEFF ([facility]) Body mass index (BMI) [Ratio] 40 kg/m2 40 kg/ m2 JEFF ([facility]) Systolic blood pressure 115 mm[Hg] 115 mm[Hg] [facility]) Body weight 4208 [oz_av] 4208 [oz_av] JEFF ([facility]) Diastolic blood pressure 78 mm[Hg] 78 mm[Hg] JEFF ([facility]) Body height 68 [in_i] 68 [in_i] JEFF ([facility]) Body mass index (BMI) [Ratio] 40 kg/m2 40 kg/ m2 JEFF ([facility]) Systolic blood pressure 115 mm[Hg] 115 mm[Hg] [facility]) Body weight 4208 [oz_av] 4208 [oz_av] JEFF ([facility]) Diastolic blood pressure 78 mm[Hg] 78 mm[Hg] JEFF ([facility]) Body height 68 [in_i] 68 [in_i] JEFF ([facility]) Body mass index (BMI) [Ratio] 40 kg/m2 40 kg/ m2 JEFF ([facility]) Systolic blood pressure 115 mm[Hg] 115 mm[Hg] [facility]) Body weight 4208 [oz_av] 4208 [oz_av] JEFF ([facility]) Diastolic blood pressure 78 mm[Hg] 78 mm[Hg] JEFF ([facility]) Body height 68 [in_i] 68 [in_i] JEFF ([facility]) Body mass index (BMI) [Ratio] 40 kg/m2 40 kg/ m2 JEFF ([facility]) Systolic blood pressure 115 mm[Hg] 115 mm[Hg] [facility]) Body weight 4208 [oz_av] 4208 [oz_av] JEFF ([facility]) Body mass index (BMI) [Ratio] 40 kg/m2 40 kg/ m2 JEFF ([facility]) Diastolic blood pressure 78 mm[Hg] 78 mm[Hg] JEFF ([facility]) Body height 68 [in_i] 68 [in_i] JEFF ([facility]) Systolic blood pressure 115 mm[Hg] 115 mm[Hg] A THENA ([facility]) Body weight 4208 [oz_av] 4208 [oz_av] JEFF ([facility]) Diastolic blood pressure 78 mm[Hg] 78 mm[Hg] JEFF ([facility]) Body height 68 [in_i] 68 [in_i] JEFF ([facility]) Body mass index (BMI) [Ratio] 40 kg/m2 40 kg/ m2 JEFF ([facility]) Systolic blood pressure 115 mm[Hg] 115 mm[Hg] A THENA ([facility]) Body weight 4208 [oz_av] 4208 [oz_av] JEFF ([facility]) Diastolic blood pressure 78 mm[Hg] 78 mm[Hg] JEFF ([facility]) Body height 68 [in_i] 68 [in_i] JEFF ([facility]) Body mass index (BMI) [Ratio] 40 kg/m2 40 kg/ m2 JEFF ([facility]) Systolic blood pressure 115 mm[Hg] 115 mm[Hg] A THENA ([facility]) Body weight 4208 [oz_av] 4208 [oz_av] JEFF ([facility]) Diastolic blood pressure 78 mm[Hg] 78 mm[Hg] JEFF ([facility]) Body height 68 [in_i] 68 [in_i] JEFF ([facility]) Body mass index (BMI) [Ratio] 40 kg/m2 40 kg/ m2 JEFF ([facility]) Systolic blood pressure 115 mm[Hg] 115 mm[Hg] [facility] Body weight 4208 [oz_av] 4208 [oz_av] JEFF ([facility]) Diastolic blood pressure 78 mm[Hg] 78 mm[Hg] JEFF ([facility]) Body height 68 [in_i] 68 [in_i] JEFF ([facility]) Body mass index (BMI) [Ratio] 40 kg/m2 40 kg/ m2 JEFF ([facility]) Systolic blood pressure 115 mm[Hg] 115 mm[Hg] [facility] Body weight 4208 [oz_av] 4208 [oz_av] JEFF ([facility]) Diastolic blood pressure 78 mm[Hg] 78 mm[Hg] JEFF ([facility]) Body height 68 [in_i] 68 [in_i] JEFF ([facility]) Body mass index (BMI) [Ratio] 40 kg/m2 40 kg/ m2 JEFF ([facility]) Systolic blood pressure 115 mm[Hg] 115 mm[Hg] A [facility] ([facility]) Body weight 4208 [oz_av] 4208 [oz_av] JEFF ([facility]) Diastolic blood pressure 78 mm[Hg] 78 mm[Hg] JEFF ([facility]) Body height 68 [in_i] 68 [in_i] JEFF ([facility]) Body mass index (BMI) [Ratio] 40 kg/m2 40 kg/ m2 JEFF ([facility]) Systolic blood pressure 115 mm[Hg] 115 mm[Hg] A [facility] ([facility]) Body weight 4208 [oz_av] 4208 [oz_av] JEFF ([facility]) Diastolic blood pressure 78 mm[Hg] 78 mm[Hg] JEFF ([facility]) Body height 68 [in_i] 68 [in_i] JEFF ([facility]) Body mass index (BMI) [Ratio] 40 kg/m2 40 kg/ m2 JEFF ([facility]) Systolic blood pressure 115 mm[Hg] 115 mm[Hg] A [facility] ([facility]) Body weight 4208 [oz_av] 4208 [oz_av] JEFF ([facility]) Diastolic blood pressure 78 mm[Hg] 78 mm[Hg] JEFF ([facility]) Body height 68 [in_i] 68 [in_i] JEFF ([facility]) Body mass index (BMI) [Ratio] 40 kg/m2 40 kg/ m2 JEFF ([facility]) Systolic blood pressure 115 mm[Hg] 115 mm[Hg] A THENA ([facility]) Body weight 4208 [oz_av] 4208 [oz_av] JEFF ([facility]) Body height 68 [in_i] 68 [in_i] MEDENT [...] (applies to non-numeric resu lts) 0.00 in [facility] ([facility]) Body weight Measured 0.00 lbs Normal (applies to n on-numeric results) 0.00 lbs [facility] ([facility]) Body mass index (BMI) [Ratio] 0.00 kg/m2 No rmal (applies to non-numeric results) 0.00 kg/m2 [facility] ([facility]) Systolic blood pressure 0 mm[Hg] Normal (applies t o non-numeric results) 0 mm[Hg] [facility] ([facility]) Diastolic blood pressure 0 mm[Hg] Normal (applies to non-numeric results) 0 mm[Hg] [facility] ([facility]) Diastolic blood pressure 83 mm[Hg] 83 mm[Hg] JEFF ([facility]) Body height 68 [in_i] 68 [in_i] JEFF ([facility]) Body mass index (BMI) [Ratio] 39.6 kg/m2 39.6 k g/m2 JEFF ([facility]) Systolic blood pressure 125 mm[Hg] 125 mm[Hg] A [facility] ([facility]) Body weight 4164 [oz_av] 4164 [oz_av] JEFF ([facility]) Diastolic blood pressure 83 mm[Hg] 83 mm[Hg] JEFF ([facility]) Body height 68 [in_i] 68 [in_i] JEFF ([facility]) Body mass index (BMI) [Ratio] 39.6 kg/m2 39.6 k g/m2 JEFF ([facility]) Systolic blood pressure 125 mm[Hg] 125 mm[Hg] A [facility] ([facility]) Body weight 4164 [oz_av] 4164 [oz_av] JEFF ([facility]) Body mass index (BMI) [Ratio] 39.6 kg/m2 39.6 k g/m2 JEFF ([facility]) Systolic blood pressure 125 mm[Hg] 125 mm[Hg] A [facility] ([facility]) Diastolic blood pressure 83 mm[Hg] 83 mm[Hg] JEFF ([facility]) Body height 68 [in_i] 68 [in_i] JEFF ([facility]) Body weight 4164 [oz_av] 4164 [oz_av] JEFF ([facility]) Systolic blood pressure 125 mm[Hg] 125 mm[Hg] A [facility] ([facility]) Body weight 4164 [oz_av] 4164 [oz_av] JEFF ([facility]) Diastolic blood pressure 83 mm[Hg] 83 mm[Hg] JEFF ([facility]) Body height 68 [in_i] 68 [in_i] JEFF ([facility]) Body mass index (BMI) [Ratio] 39.6 kg/m2 39.6 k g/m2 JEFF ([facility]) Diastolic blood pressure 83 mm[Hg] 83 mm[Hg] JEFF ([facility]) Body height 68 [in_i] 68 [in_i] JEFF ([facility]) Body weight 4164 [oz_av] 4164 [oz_av] JEFF ([facility]) Body mass index (BMI) [Ratio] 39.6 kg/m2 39.6 k g/m2 JEFF ([facility]) Systolic blood pressure 125 mm[Hg] 125 mm[Hg] A [facility] ([facility]) Diastolic blood pressure 83 mm[Hg] 83 mm[Hg] JEFF ([facility]) Body height 68 [in_i] 68 [in_i] JEFF ([facility]) Body mass index (BMI) [Ratio] 39.6 kg/m2 39.6 k g/m2 JEFF ([facility]) Systolic blood pressure 125 mm[Hg] 125 mm[Hg] A THENA ([facility]) Body weight 4164 [oz_av] 4164 [oz_av] JEFF ([facility]) Body mass index (BMI) [Ratio] 39.6 kg/m2 39.6 k g/m2 JEFF ([facility]) Systolic blood pressure 125 mm[Hg] 125 mm[Hg] A THENA ([facility]) Body weight 4164 [oz_av] 4164 [oz_av] JEFF ([facility]) Diastolic blood pressure 83 mm[Hg] 83 mm[Hg] JEFF ([facility]) Body height 68 [in_i] 68 [in_i] JEFF ([facility]) Diastolic blood pressure 83 mm[Hg] 83 mm[Hg] JEFF ([facility]) Body height 68 [in_i] 68 [in_i] JEFF ([facility]) Body mass index (BMI) [Ratio] 39.6 kg/m2 39.6 k g/m2 JEFF ([facility]) Systolic blood pressure 125 mm[Hg] 125 mm[Hg] A THENA ([facility]) Body weight 4164 [oz_av] 4164 [oz_av] JEFF ([facility]) Diastolic blood pressure 83 mm[Hg] 83 mm[Hg] JEFF ([facility]) Body height 68 [in_i] 68 [in_i] JEFF ([facility]) Body mass index (BMI) [Ratio] 39.6 kg/m2 39.6 k g/m2 JEFF ([facility]) Systolic blood pressure 125 mm[Hg] 125 mm[Hg] A THENA ([facility]) Body weight 4164 [oz_av] 4164 [oz_av] JEFF ([facility]) Diastolic blood pressure 83 mm[Hg] 83 mm[Hg] JEFF ([facility]) Body height 68 [in_i] 68 [in_i] JEFF ([facility]) Body mass index (BMI) [Ratio] 39.6 kg/m2 39.6 k g/m2 JEFF ([facility]) Systolic blood pressure 125 mm[Hg] 125 mm[Hg] A THENA ([facility]) Body weight 4164 [oz_av] 4164 [oz_av] JEFF ([facility]) Diastolic blood pressure 83 mm[Hg] 83 mm[Hg] JEFF ([facility]) Body height 68 [in_i] 68 [in_i] JEFF ([facility]) Body mass index (BMI) [Ratio] 39.6 kg/m2 39.6 k g/m2 JEFF ([facility]) Systolic blood pressure 125 mm[Hg] 125 mm[Hg] A THENA ([facility]) Body weight 4164 [oz_av] 4164 [oz_av] JEFF ([facility]) Diastolic blood pressure 83 mm[Hg] 83 mm[Hg] JEFF ([facility]) Body height 68 [in_i] 68 [in_i] JEFF ([facility]) Body mass index (BMI) [Ratio] 39.6 kg/m2 39.6 k g/m2 JEFF ([facility]) Systolic blood pressure 125 mm[Hg] 125 mm[Hg] A THENA ([facility]) Body weight 4164 [oz_av] 4164 [oz_av] JEFF ([facility]) Diastolic blood pressure 83 mm[Hg] 83 mm[Hg] JEFF ([facility]) Body height 68 [in_i] 68 [in_i] JEFF ([facility]) Body mass index (BMI) [Ratio] 39.6 kg/m2 39.6 k g/m2 JEFF ([facility]) Systolic blood pressure 125 mm[Hg] 125 mm[Hg] A THENA ([facility]) Body weight 4164 [oz_av] 4164 [oz_av] JEFF ([facility]) Diastolic blood pressure 83 mm[Hg] 83 mm[Hg] JEFF ([facility]) Body height 68 [in_i] 68 [in_i] JEFF ([facility]) Body mass index (BMI) [Ratio] 39.6 kg/m2 39.6 k g/m2 JEFF ([facility]) Systolic blood pressure 125 mm[Hg] 125 mm[Hg] A THENA ([facility]) Body weight 4164 [oz_av] 4164 [oz_av] JEFF ([facility]) Diastolic blood pressure 83 mm[Hg] 83 mm[Hg] JEFF ([facility]) Body height 68 [in_i] 68 [in_i] JEFF ([facility]) Body mass index (BMI) [Ratio] 39.6 kg/m2 39.6 k g/m2 JEFF ([facility]) Systolic blood pressure 125 mm[Hg] 125 mm[Hg] A THENA ([facility]) Body weight 4164 [oz_av] 4164 [oz_av] JEFF ([facility]) Body weight Measured 0.00 lbs Normal (applies to n on-numeric results) 0.00 lbs [facility] ([facility]) Body mass index (BMI) [Ratio] 0.00 kg/m2 No rmal (applies to non-numeric results) 0.00 kg/m2 [facility] ([facility]) Systolic blood pressure 142 mm[Hg] Normal (applies t o non-numeric results) 142 mm[Hg] [facility] ([facility]) Diastolic blood pressure 78 mm[Hg] Normal (applies to non-numeric results) 78 mm[Hg] [facility] ([facility]) Body height 0.00 in Normal (applies to non-numeric resu lts) 0.00 in [facility] ([facility]) Systolic blood pressure 126 mm[Hg] 126 mm[Hg] M EDENT ([facility]) Diastolic blood pressure 70 mm[Hg] 70 mm[Hg] MEDENT ([facility] ) Heart rate 77 /min 77 /min MEDENT ([facility] ) Oxygen saturation in Arterial blood by Pulse oximetry 98 % 98 % MEDENT ([facility] ) Body temperature 97.8 [degF] 97.8 [degF] MEDENT ([facility] Body height 68 [in_i] 68 [in_i] MEDENT ([facility]) 5'8" Body weight 268.44 [lb_av] 268.44 [lb_av] MEDEN T ([facility]) Body mass index (BMI) [Ratio] 40.8 kg/m2 40.8 k g/m2 MEDENT ([facility] ) Diastolic blood pressure 88 mm[Hg] 88 mm[Hg] JEFF ([facility]) Body height 68 [in_i] 68 [in_i] JEFF ([facility]) Body mass index (BMI) [Ratio] 40 kg/m2 40 kg/ m2 JEFF ([facility]) Systolic blood pressure 124 mm[Hg] 124 mm[Hg] A THENA ([facility]) Body weight 4214 [oz_av] 4214 [oz_av] JEFF ([facility]) Diastolic blood pressure 88 mm[Hg] 88 mm[Hg] JEFF ([facility]) Body height 68 [in_i] 68 [in_i] JEFF ([facility]) Body mass index (BMI) [Ratio] 40 kg/m2 40 kg/ m2 JEFF ([facility]) Systolic blood pressure 124 mm[Hg] 124 mm[Hg] A [facility] ([facility]) Body weight 4214 [oz_av] 4214 [oz_av] JEFF ([facility]) Diastolic blood pressure 88 mm[Hg] 88 mm[Hg] JEFF ([facility]) Body height 68 [in_i] 68 [in_i] JEFF ([facility]) Body mass index (BMI) [Ratio] 40 kg/m2 40 kg/ m2 JEFF ([facility]) Systolic blood pressure 124 mm[Hg] 124 mm[Hg] A THENA ([facility]) Body weight 4214 [oz_av] 4214 [oz_av] JEFF ([facility]) Diastolic blood pressure 88 mm[Hg] 88 mm[Hg] JEFF ([facility]) Body height 68 [in_i] 68 [in_i] JEFF ([facility]) Body mass index (BMI) [Ratio] 40 kg/m2 40 kg/ m2 JEFF ([facility]) Systolic blood pressure 124 mm[Hg] 124 mm[Hg] A [facility] ([facility]) Body weight 4214 [oz_av] 4214 [oz_av] JEFF ([facility]) Diastolic blood pressure 88 mm[Hg] 88 mm[Hg] JEFF ([facility]) Body height 68 [in_i] 68 [in_i] JEFF ([facility]) Body mass index (BMI) [Ratio] 40 kg/m2 40 kg/ m2 JEFF ([facility]) Systolic blood pressure 124 mm[Hg] 124 mm[Hg] A [facility] ([facility]) Body weight 4214 [oz_av] 4214 [oz_av] JEFF ([facility]) Diastolic blood pressure 88 mm[Hg] 88 mm[Hg] JEFF ([facility]) Body height 68 [in_i] 68 [in_i] EJFF ([facility]) Body mass index (BMI) [Ratio] 40 kg/m2 40 kg/ m2 JEFF ([facility]) Systolic blood pressure 124 mm[Hg] 124 mm[Hg] A [facility] ([facility]) Body weight 4214 [oz_av] 4214 [oz_av] JEFF ([facility]) Diastolic blood pressure 88 mm[Hg] 88 mm[Hg] JEFF ([facility]) Body height 68 [in_i] 68 [in_i] JEFF ([facility]) Body mass index (BMI) [Ratio] 40 kg/m2 40 kg/ m2 JEFF ([facility]) Systolic blood pressure 124 mm[Hg] 124 mm[Hg] A THENA ([facility]) Body weight 4214 [oz_av] 4214 [oz_av] JEFF ([facility]) Diastolic blood pressure 88 mm[Hg] 88 mm[Hg] JEFF ([facility]) Body height 68 [in_i] 68 [in_i] JEFF ([facility]) Body mass index (BMI) [Ratio] 40 kg/m2 40 kg/ m2 JEFF ([facility]) Systolic blood pressure 124 mm[Hg] 124 mm[Hg] A THENA ([facility]) Body weight 4214 [oz_av] 4214 [oz_av] JEFF ([facility]) Diastolic blood pressure 88 mm[Hg] 88 mm[Hg] JEFF ([facility]) Body height 68 [in_i] 68 [in_i] JEFF ([facility]) Body weight 4214 [oz_av] 4214 [oz_av] JEFF ([facility]) Body mass index (BMI) [Ratio] 40 kg/m2 40 kg/ m2 JEFF ([facility]) Systolic blood pressure 124 mm[Hg] 124 mm[Hg] A THENA ([facility]) Diastolic blood pressure 88 mm[Hg] 88 mm[Hg] JEFF ([facility]) Body height 68 [in_i] 68 [in_i] JEFF ([facility]) Body mass index (BMI) [Ratio] 40 kg/m2 40 kg/ m2 JEFF ([facility]) Systolic blood pressure 124 mm[Hg] 124 mm[Hg] A THENA ([facility]) Body weight 4214 [oz_av] 4214 [oz_av] JEFF ([facility]) Diastolic blood pressure 88 mm[Hg] 88 mm[Hg] JEFF ([facility]) Body height 68 [in_i] 68 [in_i] JEFF ([facility]) Body mass index (BMI) [Ratio] 40 kg/m2 40 kg/ m2 JEFF ([facility]) Systolic blood pressure 124 mm[Hg] 124 mm[Hg] A [facility] ([facility]) Body weight 4214 [oz_av] 4214 [oz_av] JEFF ([facility]) Diastolic blood pressure 88 mm[Hg] 88 mm[Hg] JEFF ([facility]) Body height 68 [in_i] 68 [in_i] JEFF ([facility]) Body mass index (BMI) [Ratio] 40 kg/m2 40 kg/ m2 JEFF ([facility]) Systolic blood pressure 124 mm[Hg] 124 mm[Hg] A [facility] ([facility]) Body weight 4214 [oz_av] 4214 [oz_av] JEFF ([facility]) Diastolic blood pressure 88 mm[Hg] 88 mm[Hg] JEFF ([facility]) Body height 68 [in_i] 68 [in_i] JEFF ([facility]) Body mass index (BMI) [Ratio] 40 kg/m2 40 kg/ m2 JEFF ([facility]) Systolic blood pressure 124 mm[Hg] 124 mm[Hg] A THENA ([facility]) Body weight 4214 [oz_av] 4214 [oz_av] JEFF ([facility]) Diastolic blood pressure 88 mm[Hg] 88 mm[Hg] JEFF ([facility]) Body height 68 [in_i] 68 [in_i] JEFF ([facility]) Body mass index (BMI) [Ratio] 40 kg/m2 40 kg/ m2 JEFF ([facility]) Systolic blood pressure 124 mm[Hg] 124 mm[Hg] A [facility] ([facility]) Body weight 4214 [oz_av] 4214 [oz_av] JEFF ([facility]) Diastolic blood pressure 88 mm[Hg] 88 mm[Hg] JEFF ([facility]) Body height 68 [in_i] 68 [in_i] JEFF ([facility]) Body mass index (BMI) [Ratio] 40 kg/m2 40 kg/ m2 JEFF ([facility]) Systolic blood pressure 124 mm[Hg] 124 mm[Hg] [facility]) Body weight 4214 [oz_av] 4214 [oz_av] JEFF ([facility]) Diastolic blood pressure 88 mm[Hg] 88 mm[Hg] JEFF ([facility]) Body height 68 [in_i] 68 [in_i] JEFF ([facility]) Body mass index (BMI) [Ratio] 40 kg/m2 40 kg/ m2 JEFF ([facility]) Systolic blood pressure 124 mm[Hg] 124 mm[Hg] A [facility] ([facility]) Body weight 4214 [oz_av] 4214 [oz_av] JEFF ([facility]) Diastolic blood pressure 88 mm[Hg] 88 mm[Hg] JEFF ([facility]) Body height 68 [in_i] 68 [in_i] JEFF ([facility]) Body mass index (BMI) [Ratio] 40 kg/m2 40 kg/ m2 JEFF ([facility]) Systolic blood pressure 124 mm[Hg] 124 mm[Hg] A [facility] ([facility]) Body weight 4214 [oz_av] 4214 [oz_av] JEFF ([facility]) Diastolic blood pressure 83 mm[Hg] 83 mm[Hg] JEFF ([facility]) Body height 68 [in_i] 68 [in_i] JEFF ([facility]) Body mass index (BMI) [Ratio] 40.31 kg/m2 40.31 kg/m2 JEFF ([facility]) Systolic blood pressure 134 mm[Hg] 134 mm[Hg] A [facility] ([facility]) Body weight 4226.08 [oz_av] 4226.08 [oz_av] ATH ALVARO ([facility]) Diastolic blood pressure 83 mm[Hg] 83 mm[Hg] JEFF ([facility]) Body height 68 [in_i] 68 [in_i] JEFF ([facility]) Body mass index (BMI) [Ratio] 40.31 kg/m2 40.31 kg/m2 JEFF ([facility]) Systolic blood pressure 134 mm[Hg] 134 mm[Hg] A [facility] ([facility]) Body weight 4226.08 [oz_av] 4226.08 [oz_av] ATH ALVARO ([facility]) Diastolic blood pressure 83 mm[Hg] 83 mm[Hg] JEFF ([facility]) Body height 68 [in_i] 68 [in_i] JEFF ([facility]) Body mass index (BMI) [Ratio] 40.31 kg/m2 40.31 kg/m2 JEFF ([facility]) Systolic blood pressure 134 mm[Hg] 134 mm[Hg] A [facility] ([facility]) Body weight 4226.08 [oz_av] 4226.08 [oz_av] ATH ALVARO ([facility]) Diastolic blood pressure 83 mm[Hg] 83 mm[Hg] JEFF ([facility]) Body height 68 [in_i] 68 [in_i] JEFF ([facility]) Body mass index (BMI) [Ratio] 40.31 kg/m2 40.31 kg/m2 JEFF ([facility]) Systolic blood pressure 134 mm[Hg] 134 mm[Hg] A THENA ([facility]) Body weight 4226.08 [oz_av] 4226.08 [oz_av] ATH ALVARO ([facility]) Diastolic blood pressure 83 mm[Hg] 83 mm[Hg] JEFF ([facility]) Body height 68 [in_i] 68 [in_i] JEFF ([facility]) Body mass index (BMI) [Ratio] 40.31 kg/m2 40.31 kg/m2 JEFF ([facility]) Systolic blood pressure 134 mm[Hg] 134 mm[Hg] A THENA ([facility]) Body weight 4226.08 [oz_av] 4226.08 [oz_av] ATH ALVARO ([facility]) Body weight 4226.08 [oz_av] 4226.08 [oz_av] ATH [facility] ([facility]) Body height 68 [in_i] 68 [in_i] JEFF ([facility]) Body mass index (BMI) [Ratio] 40.31 kg/m2 40.31 kg/m2 JEFF ([facility]) Systolic blood pressure 134 mm[Hg] 134 mm[Hg] A [facility] ([facility]) Diastolic blood pressure 83 mm[Hg] 83 mm[Hg] JEFF ([facility]) Systolic blood pressure 134 mm[Hg] 134 mm[Hg] A [facility] ([facility]) Body weight 4226.08 [oz_av] 4226.08 [oz_av] ATH ALVARO ([facility]) Diastolic blood pressure 83 mm[Hg] 83 mm[Hg] JEFF ([facility]) Body height 68 [in_i] 68 [in_i] JEFF ([facility]) Body mass index (BMI) [Ratio] 40.31 kg/m2 40.31 kg/m2 JEFF ([facility]) Diastolic blood pressure 83 mm[Hg] 83 mm[Hg] JEFF ([facility]) Body height 68 [in_i] 68 [in_i] JEFF ([facility]) Body mass index (BMI) [Ratio] 40.31 kg/m2 40.31 kg/m2 JEFF ([facility]) Systolic blood pressure 134 mm[Hg] 134 mm[Hg] A THENA ([facility]) Body weight 4226.08 [oz_av] 4226.08 [oz_av] ATH ALVARO ([facility]) Diastolic blood pressure 83 mm[Hg] 83 mm[Hg] JEFF ([facility]) Body height 68 [in_i] 68 [in_i] JEFF ([facility]) Body mass index (BMI) [Ratio] 40.31 kg/m2 40.31 kg/m2 JEFF ([facility]) Systolic blood pressure 134 mm[Hg] 134 mm[Hg] A THENA ([facility]) Body weight 4226.08 [oz_av] 4226.08 [oz_av] ATH ALVARO ([facility]) Body mass index (BMI) [Ratio] 40.31 kg/m2 40.31 kg/m2 JEFF ([facility]) Systolic blood pressure 134 mm[Hg] 134 mm[Hg] A THENA ([facility]) Body weight 4226.08 [oz_av] 4226.08 [oz_av] ATH ALVARO ([facility]) Diastolic blood pressure 83 mm[Hg] 83 mm[Hg] JEFF ([facility]) Body height 68 [in_i] 68 [in_i] JEFF ([facility]) Diastolic blood pressure 83 mm[Hg] 83 mm[Hg] JEFF ([facility]) Body height 68 [in_i] 68 [in_i] JEFF ([facility]) Body mass index (BMI) [Ratio] 40.31 kg/m2 40.31 kg/m2 JEFF ([facility]) Systolic blood pressure 134 mm[Hg] 134 mm[Hg] A THENA ([facility]) Body weight 4226.08 [oz_av] 4226.08 [oz_av] ATH ALVARO ([facility]) Body height 0.00 in Normal (applies to non-numeric resu lts) 0.00 in [facility] ([facility]) Body weight Measured 0.00 lbs Normal (applies to n on-numeric results) 0.00 lbs [facility] ([facility]) Body mass index (BMI) [Ratio] 0.00 kg/m2 No rmal (applies to non-numeric results) 0.00 kg/m2 [facility] ([facility]) Systolic blood pressure 0 mm[Hg] Normal (applies t o non-numeric results) 0 mm[Hg] [facility] ([facility]) Diastolic blood pressure 0 mm[Hg] Normal (applies to non-numeric results) 0 mm[Hg] [facility] ([facility]) Patient Treatment Plan of Care Planned Activity Planned Date Details Description Data Source (s) Alcohol Prep Pads 06/20/2021 12:00:00 AM EDT JEFF ([facility]) ziprasidone 60 MG Oral Capsule JEFF ([facility]) Ergocalciferol 38216 UNT Oral Capsule JEFF ([facility]) 0.5 ML dulaglutide 1.5 MG/ML Auto-Injector [Trulicity] JEFF ([facility]) Triamcinolone Acetonide 1 MG/ML Topical Cream JEFF ([facility]) Trazodone Hydrochloride 50 MG Oral Tablet JEFF ([facility]) Steglatro 5 mg tablet JEFF ([facility]) Simvastatin 10 MG Oral Tablet JEFF ([facility]) Docusate Sodium 50 MG / sennosides, GROUP HOME 8.6 MG Oral Tablet JEFF ([facility]) sennosides 8.6 mg-docusate sodium 50 mg capsule Take 2 capsules by oral route at bedtime. JEFF ([facility]) sennosides, GROUP HOME 8.6 MG Oral Tablet [Senna-Time] JEFF ([facility]) Propranolol Hydrochloride 20 MG Oral Tablet JEFF ([facility]) Prazosin 1 MG Oral Capsule A THEN ([facility]) OneTouch Verio test strips USE UP TO TWO TIMES A DAY DIRECTED [place] ([facility]) OneTouch Verio Flex Meter AT [facility] ([facility]) OneTouch Delica Plus Lancet 33 gauge [place] ([facility]) Ofloxacin 3 MG/ML Otic Solution JEFF ([facility]) Mirtazapine 45 MG Oral Tablet JEFF ([facility]) Mirtazapine 15 MG Oral Tablet JEFF ([facility]) lamotrigine 25 MG Oral Tablet JEFF ([facility]) lamotrigine 100 MG Oral Tablet JEFF ([facility]) Ketoconazole 20 MG/ML Medicated Shampoo JEFF ([facility]) Famotidine 20 MG Oral Tablet JEFF ([facility]) Docusate Sodium 100 MG Oral Capsule [DOK] JEFF ([facility]) Clonidine Hydrochloride 0.2 MG Oral Tablet JEFF ([facility]) Clonazepam 1 MG Oral Tablet JEFF ([facility]) Clonazepam 0.5 MG Disintegrating Oral Tablet JEFF ([facility]) Clindamycin 150 MG Oral Capsule JEFF ([facility]) Cephalexin 500 MG Oral Capsule JEFF ([facility]) cefdinir 300 MG Oral Capsule JEFF ([facility]) buspirone hydrochloride 7.5 MG Oral Tablet JEFF ([facility]) buspirone hydrochloride 15 MG Oral Tablet JEFF ([facility]) buspirone hydrochloride 10 MG Oral Tablet JEFF ([facility]) benztropine mesylate 0.5 MG Oral Tablet JEFF ([facility]) benzonatate 200 MG Oral Capsule [facility] ([facility]) Azithromycin 250 MG Oral Tablet JE[facility] ([facility]) Amitriptyline Hydrochloride 75 MG Oral Tablet [facility] ([facility]) Amitriptyline Hydrochloride 50 MG Oral Tablet [facility] ([facility]) lamotrigine 25 MG Oral Tablet [facility] ([facility]) lamotrigine 100 MG Oral Tablet [facility] ([facility]) Ketoconazole 20 MG/ML Medicated Shampoo [facility] ([facility]) Famotidine 20 MG Oral Tablet [facility] ([facility]) Docusate Sodium 100 MG Oral Capsule [DOK] JE[facility] ([facility]) Clonidine Hydrochloride 0.2 MG Oral Tablet [facility] ([facility]) Clonazepam 1 MG Oral Tablet [facility] ([facility]) Clonazepam 0.5 MG Disintegrating Oral Tablet [facility] ([facility]) Clindamycin 150 MG Oral Capsule [facility] ([facility]) Cephalexin 500 MG Oral Capsule JE[facility] ([facility]) cefdinir 300 MG Oral Capsule JE[facility] ([facility]) buspirone hydrochloride 7.5 MG Oral Tablet JE[facility] ([facility]) buspirone hydrochloride 15 MG Oral Tablet [facility] ([facility]) buspirone hydrochloride 10 MG Oral Tablet [facility] ([facility]) benztropine mesylate 0.5 MG Oral Tablet [facility] ([facility]) benzonatate 200 MG Oral Capsule [facility] ([facility]) BD Ultra-Fine Short Pen Needle 31 gauge x 5/16" USE ONCE DAILY JEFF ([facility]) Azithromycin 250 MG Oral Tablet [facility] ([facility]) Amitriptyline Hydrochloride 75 MG Oral Tablet [facility] ([facility]) Amitriptyline Hydrochloride 50 MG Oral Tablet [facility] ([facility]) Isopropyl Alcohol 0.7 ML/ML Medicated Pad [facility] ([facility]) Clindamycin 150 MG Oral Capsule [facility] ([facility]) Cephalexin 500 MG Oral Capsule [facility] ([facility]) cefdinir 300 MG Oral Capsule JE[facility] ([facility]) buspirone hydrochloride 7.5 MG Oral Tablet [facility] ([facility]) buspirone hydrochloride 15 MG Oral Tablet [facility] ([facility]) buspirone hydrochloride 10 MG Oral Tablet [facility] ([facility]) benztropine mesylate 0.5 MG Oral Tablet [facility] ([facility]) benzonatate 200 MG Oral Capsule [facility] ([facility]) BD Ultra-Fine Short Pen Needle 31 gauge x 5/16" USE ONCE DAILY JEFF ([facility]) Azithromycin 250 MG Oral Tablet [facility] ([facility]) Amitriptyline Hydrochloride 75 MG Oral Tablet [facility] ([facility]) Amitriptyline Hydrochloride 50 MG Oral Tablet [facility] ([facility]) Isopropyl Alcohol 0.7 ML/ML Medicated Pad [facility] ([facility]) ziprasidone 60 MG Oral Capsule [facility] ([facility]) Ergocalciferol [id number] UNT Oral Capsule [facility] ([facility]) 0.5 ML dulaglutide 1.5 MG/ML Auto-Injector [Trulicity] [facility] ([facility]) Triamcinolone Acetonide 1 MG/ML Topical Cream [facility] ([facility]) Steglatro 5 mg tablet [facility] ([facility]) Simvastatin 10 MG Oral Tablet [facility] ([facility]) Docusate Sodium 50 MG / sennosides, GROUP HOME 8.6 MG Oral Tablet [facility] ([facility]) sennosides 8.6 mg-docusate sodium 50 mg capsule Take 2 capsules by oral route at bedtime. JEFF ([facility]) sennosides, GROUP HOME 8.6 MG Oral Tablet [Senna-Time] [facility] ([facility]) Propranolol Hydrochloride 20 MG Oral Tablet [facility] ([facility]) Prazosin 1 MG Oral Capsule A [facility] ([facility]) OneTouch Verio Flex Meter AT [facility] ([facility]) OneTouch Delica Plus Lancet 33 gauge [facility] ([facility]) Mirtazapine 45 MG Oral Tablet [facility] ([facility]) Mirtazapine 15 MG Oral Tablet [facility] ([facility]) lamotrigine 25 MG Oral Tablet [facility] ([facility]) lamotrigine 100 MG Oral Tablet [facility] ([facility]) Ketoconazole 20 MG/ML Medicated Shampoo [facility] ([facility]) Famotidine 20 MG Oral Tablet [facility] ([facility]) Docusate Sodium 100 MG Oral Capsule [DOK] [facility] ([facility]) Clonidine Hydrochloride 0.2 MG Oral Tablet [facility] ([facility]) Clonazepam 1 MG Oral Tablet [facility] ([facility]) Clonazepam 0.5 MG Oral Tablet [facility] ([facility]) Clonazepam 0.5 MG Disintegrating Oral Tablet [facility] ([facility]) Clindamycin 150 MG Oral Capsule [facility] ([facility]) cefdinir 300 MG Oral Capsule [facility] ([facility]) buspirone hydrochloride 7.5 MG Oral Tablet [facility] ([facility]) buspirone hydrochloride 15 MG Oral Tablet [facility] ([facility]) buspirone hydrochloride 10 MG Oral Tablet [facility] ([facility]) benztropine mesylate 0.5 MG Oral Tablet [facility] ([facility]) benzonatate 200 MG Oral Capsule [facility] ([facility]) Azithromycin 250 MG Oral Tablet [facility] ([facility]) Amitriptyline Hydrochloride 75 MG Oral Tablet [facility] ([facility]) Amitriptyline Hydrochloride 50 MG Oral Tablet [facility] ([facility]) Isopropyl Alcohol 0.7 ML/ML Medicated Pad [facility] ([facility]) ziprasidone 60 MG Oral Capsule [facility] ([facility]) Ergocalciferol [id number] UNT Oral Capsule [facility] ([facility]) 0.5 ML dulaglutide 1.5 MG/ML Auto-Injector [Trulicity] [facility] ([facility]) Triamcinolone Acetonide 1 MG/ML Topical Cream [facility] ([facility]) Steglatro 5 mg tablet [facility] ([facility]) Simvastatin 10 MG Oral Tablet [facility] ([facility]) Docusate Sodium 50 MG / sennosides, GROUP HOME 8.6 MG Oral Tablet [facility] ([facility]) sennosides 8.6 mg-docusate sodium 50 mg capsule Take 2 capsules by oral route at bedtime. JE[facility] ([facility]) sennosides, GROUP HOME 8.6 MG Oral Tablet [Senna-Time] [facility] ([facility]) Propranolol Hydrochloride 20 MG Oral Tablet [facility] ([facility]) Prazosin 1 MG Oral Capsule A [facility] ([facility]) OneTouch Verio Flex Meter AT [facility] ([facility]) OneTouch Delica Plus Lancet 33 gauge [facility] ([facility]) Mirtazapine 45 MG Oral Tablet [facility] ([facility]) Mirtazapine 15 MG Oral Tablet [facility] ([facility]) lamotrigine 25 MG Oral Tablet [facility] ([facility]) lamotrigine 100 MG Oral Tablet [facility] ([facility]) Ketoconazole 20 MG/ML Medicated Shampoo [facility] ([facility]) Famotidine 20 MG Oral Tablet [facility] ([facility]) Docusate Sodium 100 MG Oral Capsule [DOK] [facility] ([facility]) Clonidine Hydrochloride 0.2 MG Oral Tablet [facility] ([facility]) Clonazepam 1 MG Oral Tablet [facility] ([facility]) Clonazepam 0.5 MG Oral Tablet [facility] ([facility]) Clonazepam 0.5 MG Disintegrating Oral Tablet [facility] ([facility]) Clindamycin 150 MG Oral Capsule [facility] ([facility]) cefdinir 300 MG Oral Capsule [facility] ([facility]) buspirone hydrochloride 7.5 MG Oral Tablet [facility] ([facility]) buspirone hydrochloride 15 MG Oral Tablet [facility] ([facility]) buspirone hydrochloride 10 MG Oral Tablet [facility] ([facility]) benztropine mesylate 0.5 MG Oral Tablet [facility] ([facility]) benzonatate 200 MG Oral Capsule [facility] ([facility]) Azithromycin 250 MG Oral Tablet [facility] ([facility]) Amitriptyline Hydrochloride 75 MG Oral Tablet [facility] ([facility]) Amitriptyline Hydrochloride 50 MG Oral Tablet [facility] ([facility]) Isopropyl Alcohol 0.7 ML/ML Medicated Pad [facility] ([facility]) ziprasidone 60 MG Oral Capsule [facility] ([facility]) Ergocalciferol [id number] UNT Oral Capsule [facility] ([facility]) 0.5 ML dulaglutide 1.5 MG/ML Auto-Injector [Trulicity] [facility] ([facility]) Triamcinolone Acetonide 1 MG/ML Topical Cream [facility] ([facility]) Steglatro 5 mg tablet [facility] ([facility]) Simvastatin 10 MG Oral Tablet [facility] ([facility]) Docusate Sodium 50 MG / sennosides, GROUP HOME 8.6 MG Oral Tablet [facility] ([facility]) sennosides 8.6 mg-docusate sodium 50 mg capsule Take 2 capsules by oral route at bedtime. JE[facility] ([facility]) sennosides, GROUP HOME 8.6 MG Oral Tablet [Senna-Time] [facility] ([facility]) Propranolol Hydrochloride 20 MG Oral Tablet [facility] ([facility]) Prazosin 1 MG Oral Capsule A [facility] ([facility]) OneTouch Verio Flex Meter AT [facility] ([facility]) OneTouch Delica Plus Lancet 33 gauge [facility] ([facility]) Mirtazapine 45 MG Oral Tablet [facility] ([facility]) Mirtazapine 15 MG Oral Tablet [facility] ([facility]) lamotrigine 25 MG Oral Tablet [facility] ([facility]) ziprasidone 60 MG Oral Capsule [facility] ([facility]) Ergocalciferol [id number] UNT Oral Capsule [facility] ([facility]) 0.5 ML dulaglutide 1.5 MG/ML Auto-Injector [Trulicity] [facility] ([facility]) Triamcinolone Acetonide 1 MG/ML Topical Cream [facility] ([facility]) Trazodone Hydrochloride 50 MG Oral Tablet [facility] ([facility]) Steglatro 5 mg tablet [facility] ([facility]) Simvastatin 10 MG Oral Tablet [facility] ([facility]) Docusate Sodium 50 MG / sennosides, GROUP HOME 8.6 MG Oral Tablet [facility] ([facility]) sennosides 8.6 mg-docusate sodium 50 mg capsule Take 2 capsules by oral route at bedtime. EJFF ([facility]) sennosides, GROUP HOME 8.6 MG Oral Tablet [Senna-Time] [facility] ([facility]) Propranolol Hydrochloride 20 MG Oral Tablet [facility] ([facility]) Prazosin 1 MG Oral Capsule A THEN ([facility]) OneTouch Verio test strips USE UP TO TWO TIMES A DAY DIRECTED [place] ([facility]) OneTouch Verio Flex Meter AT [facility] ([facility]) OneTouch Delica Plus Lancet 33 gauge [facility] ([facility]) Mirtazapine 45 MG Oral Tablet [facility] ([facility]) Mirtazapine 15 MG Oral Tablet [facility] ([facility]) ziprasidone 60 MG Oral Capsule [facility] ([facility]) Ergocalciferol [id number] UNT Oral Capsule [facility] ([facility]) 0.5 ML dulaglutide 1.5 MG/ML Auto-Injector [Trulicity] [facility] ([facility]) Triamcinolone Acetonide 1 MG/ML Topical Cream [facility] ([facility]) Trazodone Hydrochloride 50 MG Oral Tablet [facility] ([facility]) Steglatro 5 mg tablet [facility] ([facility]) Simvastatin 10 MG Oral Tablet [facility] ([facility]) Docusate Sodium 50 MG / sennosides, GROUP HOME 8.6 MG Oral Tablet [facility] ([facility]) sennosides 8.6 mg-docusate sodium 50 mg capsule Take 2 capsules by oral route at bedtime. [facility] ([facility]) sennosides, GROUP HOME 8.6 MG Oral Tablet [Senna-Time] [facility] ([facility]) Propranolol Hydrochloride 20 MG Oral Tablet [facility] ([facility]) Prazosin 1 MG Oral Capsule A [facility] ([facility]) OneTouch Verio test strips USE UP TO TWO TIMES A DAY DIRECTED JEFF ([facility]) OneTouch Verio Flex Meter AT [facility] ([facility]) OneTouch Delica Plus Lancet 33 gauge [facility] ([facility]) Mirtazapine 45 MG Oral Tablet [facility] ([facility]) Mirtazapine 15 MG Oral Tablet [facility] ([facility]) lamotrigine 25 MG Oral Tablet [facility] ([facility]) lamotrigine 100 MG Oral Tablet [facility] ([facility]) Ketoconazole 20 MG/ML Medicated Shampoo [facility] ([facility]) Famotidine 20 MG Oral Tablet [facility] ([facility]) Docusate Sodium 100 MG Oral Capsule [DOK] [facility] ([facility]) Clonidine Hydrochloride 0.2 MG Oral Tablet [facility] ([facility]) Clonazepam 1 MG Oral Tablet [facility] ([facility]) Clonazepam 0.5 MG Oral Tablet [facility] ([facility]) Clonazepam 0.5 MG Disintegrating Oral Tablet [facility] ([facility]) ziprasidone 60 MG Oral Capsule [facility] ([facility]) Ergocalciferol [id number] UNT Oral Capsule [facility] ([facility]) 0.5 ML dulaglutide 1.5 MG/ML Auto-Injector [Trulicity] [facility] ([facility]) Triamcinolone Acetonide 1 MG/ML Topical Cream [facility] ([facility]) Steglatro 5 mg tablet [facility] ([facility]) Simvastatin 10 MG Oral Tablet [facility] ([facility]) Docusate Sodium 50 MG / sennosides, GROUP HOME 8.6 MG Oral Tablet [facility] ([facility]) sennosides 8.6 mg-docusate sodium 50 mg capsule Take 2 capsules by oral route at bedtime. JEFF ([facility]) sennosides, GROUP HOME 8.6 MG Oral Tablet [Senna-Time] [facility] ([facility]) Propranolol Hydrochloride 20 MG Oral Tablet [facility] ([facility]) Prazosin 1 MG Oral Capsule A [facility] ([facility]) OneTouch Verio Flex Meter AT [facility] ([facility]) OneTouch Delica Plus Lancet 33 gauge [facility] ([facility]) Mirtazapine 45 MG Oral Tablet [facility] ([facility]) Mirtazapine 15 MG Oral Tablet [facility] ([facility]) lamotrigine 25 MG Oral Tablet [facility] ([facility]) lamotrigine 100 MG Oral Tablet [facility] ([facility]) Ketoconazole 20 MG/ML Medicated Shampoo [facility] ([facility]) Famotidine 20 MG Oral Tablet [facility] ([facility]) Docusate Sodium 100 MG Oral Capsule [DOK] [facility] ([facility]) Clonidine Hydrochloride 0.2 MG Oral Tablet [facility] ([facility]) Clonazepam 1 MG Oral Tablet [facility] ([facility]) Clonazepam 0.5 MG Disintegrating Oral Tablet [facility] ([facility]) Clindamycin 150 MG Oral Capsule [facility] ([facility]) cefdinir 300 MG Oral Capsule [facility] ([facility]) buspirone hydrochloride 7.5 MG Oral Tablet [facility] ([facility]) buspirone hydrochloride 10 MG Oral Tablet [facility] ([facility]) benztropine mesylate 0.5 MG Oral Tablet [facility] ([facility]) benzonatate 200 MG Oral Capsule [facility] ([facility]) Azithromycin 250 MG Oral Tablet [facility] ([facility]) Amitriptyline Hydrochloride 75 MG Oral Tablet [facility] ([facility]) Amitriptyline Hydrochloride 50 MG Oral Tablet [facility] ([facility]) Isopropyl Alcohol 0.7 ML/ML Medicated Pad [facility] ([facility]) Ketoconazole 20 MG/ML Medicated Shampoo [facility] ([facility]) Famotidine 20 MG Oral Tablet [facility] ([facility]) Docusate Sodium 100 MG Oral Capsule [DOK] [facility] ([facility]) Clonidine Hydrochloride 0.2 MG Oral Tablet [facility] ([facility]) Clonazepam 1 MG Oral Tablet [facility] ([facility]) Clindamycin 150 MG Oral Capsule [facility] ([facility]) cefdinir 300 MG Oral Capsule JE[facility] ([facility]) buspirone hydrochloride 7.5 MG Oral Tablet [facility] ([facility]) buspirone hydrochloride 10 MG Oral Tablet [facility] ([facility]) benztropine mesylate 0.5 MG Oral Tablet [facility] ([facility]) benzonatate 200 MG Oral Capsule [facility] ([facility]) BD Ultra-Fine Short Pen Needle 31 gauge x 5/16" USE DIRECTED ONCE DAILY JEFF ([facility]) Azithromycin 250 MG Oral Tablet [facility] ([facility]) Amitriptyline Hydrochloride 75 MG Oral Tablet [facility] ([facility]) Amitriptyline Hydrochloride 50 MG Oral Tablet [facility] ([facility]) Isopropyl Alcohol 0.7 ML/ML Medicated Pad [facility] ([facility]) lamotrigine 100 MG Oral Tablet [facility] ([facility]) Ketoconazole 20 MG/ML Medicated Shampoo [facility] ([facility]) Famotidine 20 MG Oral Tablet [facility] ([facility]) Docusate Sodium 100 MG Oral Capsule [DOK] [facility] ([facility]) Clonidine Hydrochloride 0.2 MG Oral Tablet [facility] ([facility]) Clonazepam 1 MG Oral Tablet [facility] ([facility]) Clonazepam 0.5 MG Oral Tablet [facility] ([facility]) Clonazepam 0.5 MG Disintegrating Oral Tablet [facility] ([facility]) Clindamycin 150 MG Oral Capsule [facility] ([facility]) cefdinir 300 MG Oral Capsule JE[facility] ([facility]) buspirone hydrochloride 7.5 MG Oral Tablet [facility] ([facility]) buspirone hydrochloride 15 MG Oral Tablet [facility] ([facility]) buspirone hydrochloride 10 MG Oral Tablet [facility] ([facility]) benztropine mesylate 0.5 MG Oral Tablet [facility] ([facility]) benzonatate 200 MG Oral Capsule [facility] ([facility]) Azithromycin 250 MG Oral Tablet [facility] ([facility]) Amitriptyline Hydrochloride 75 MG Oral Tablet [facility] ([facility]) Amitriptyline Hydrochloride 50 MG Oral Tablet [facility] ([facility]) Isopropyl Alcohol 0.7 ML/ML Medicated Pad [facility] ([facility]) ziprasidone 60 MG Oral Capsule [facility] ([facility]) 0.5 ML dulaglutide 1.5 MG/ML Auto-Injector [Trulicity] [facility] ([facility]) Triamcinolone Acetonide 1 MG/ML Topical Cream JE[facility] ([facility]) Steglatro 5 mg tablet [facility] ([facility]) Simvastatin 10 MG Oral Tablet [facility] ([facility]) Docusate Sodium 50 MG / sennosides, GROUP HOME 8.6 MG Oral Tablet [facility] ([facility]) sennosides 8.6 mg-docusate sodium 50 mg capsule Take 2 capsules by oral route at bedtime. JE[facility] ([facility]) Propranolol Hydrochloride 20 MG Oral Tablet [facility] ([facility]) Mirtazapine 45 MG Oral Tablet [facility] ([facility]) Mirtazapine 15 MG Oral Tablet [facility] ([facility]) lamotrigine 25 MG Oral Tablet [facility] ([facility]) Ketoconazole 20 MG/ML Medicated Shampoo [facility] ([facility]) Famotidine 20 MG Oral Tablet [facility] ([facility]) Clonidine Hydrochloride 0.2 MG Oral Tablet [facility] ([facility]) Clonazepam 1 MG Oral Tablet [facility] ([facility]) cefdinir 300 MG Oral Capsule [facility] ([facility]) buspirone hydrochloride 7.5 MG Oral Tablet [facility] ([facility]) buspirone hydrochloride 10 MG Oral Tablet [facility] ([facility]) benztropine mesylate 0.5 MG Oral Tablet [facility] ([facility]) benzonatate 200 MG Oral Capsule [facility] ([facility]) Azithromycin 250 MG Oral Tablet [facility] ([facility]) Amitriptyline Hydrochloride 75 MG Oral Tablet [facility] ([facility]) Amitriptyline Hydrochloride 50 MG Oral Tablet [facility] ([facility]) ziprasidone 60 MG Oral Capsule [facility] ([facility]) 0.5 ML dulaglutide 1.5 MG/ML Auto-Injector [Trulicity] [facility] ([facility]) Triamcinolone Acetonide 1 MG/ML Topical Cream [facility] ([facility]) Steglatro 5 mg tablet [facility] ([facility]) Simvastatin 10 MG Oral Tablet [facility] ([facility]) Docusate Sodium 50 MG / sennosides, GROUP HOME 8.6 MG Oral Tablet [facility] ([facility]) sennosides 8.6 mg-docusate sodium 50 mg capsule Take 2 capsules by oral route at bedtime. JE[facility] ([facility]) buspirone hydrochloride 10 MG Oral Tablet [facility] ([facility]) benztropine mesylate 0.5 MG Oral Tablet [facility] ([facility]) benzonatate 200 MG Oral Capsule [facility] ([facility]) Azithromycin 250 MG Oral Tablet [facility] ([facility]) Amitriptyline Hydrochloride 75 MG Oral Tablet [facility] ([facility]) Amitriptyline Hydrochloride 50 MG Oral Tablet [facility] ([facility]) ziprasidone 60 MG Oral Capsule [facility] ([facility]) 0.5 ML dulaglutide 1.5 MG/ML Auto-Injector [Trulicity] [facility] ([facility]) Triamcinolone Acetonide 1 MG/ML Topical Cream [facility] ([facility]) Steglatro 5 mg tablet [facility] ([facility]) Simvastatin 10 MG Oral Tablet [facility] ([facility]) Docusate Sodium 50 MG / sennosides, GROUP HOME 8.6 MG Oral Tablet [facility] ([facility]) ziprasidone 60 MG Oral Capsule [facility] ([facility]) Ergocalciferol [id number] UNT Oral Capsule [facility] ([facility]) 0.5 ML dulaglutide 1.5 MG/ML Auto-Injector [Trulicity] [facility] ([facility]) Triamcinolone Acetonide 1 MG/ML Topical Cream [facility] ([facility]) Steglatro 5 mg tablet [facility] ([facility]) Simvastatin 10 MG Oral Tablet [facility] ([facility]) Docusate Sodium 50 MG / sennosides, GROUP HOME 8.6 MG Oral Tablet [facility] ([facility]) sennosides 8.6 mg-docusate sodium 50 mg capsule Take 2 capsules by oral route at bedtime. JE[facility] ([facility]) sennosides, GROUP HOME 8.6 MG Oral Tablet [Senna-Time] [facility] ([facility]) Propranolol Hydrochloride 20 MG Oral Tablet [facility] ([facility]) Prazosin 1 MG Oral Capsule A [facility] ([facility]) OneTouch Verio test strips USE DIRECTED UP TO TWO TIMES A DAY JEFF ([facility]) OneTouch Verio Flex Meter AT [facility] ([facility]) OneTouch Delica Plus Lancet 33 gauge [facility] ([facility]) Mirtazapine 45 MG Oral Tablet [facility] ([facility]) Mirtazapine 15 MG Oral Tablet [facility] ([facility]) lamotrigine 25 MG Oral Tablet [facility] ([facility]) Ketoconazole 20 MG/ML Medicated Shampoo [facility] ([facility]) Famotidine 20 MG Oral Tablet [facility] ([facility]) Docusate Sodium 100 MG Oral Capsule [DOK] [facility] ([facility]) Clonidine Hydrochloride 0.2 MG Oral Tablet [facility] ([facility]) Clonazepam 1 MG Oral Tablet [facility] ([facility]) Clindamycin 150 MG Oral Capsule [facility] ([facility]) cefdinir 300 MG Oral Capsule JE[facility] ([facility]) buspirone hydrochloride 7.5 MG Oral Tablet [facility] ([facility]) buspirone hydrochloride 10 MG Oral Tablet [facility] ([facility]) benztropine mesylate 0.5 MG Oral Tablet [facility] ([facility]) benzonatate 200 MG Oral Capsule JE[facility] ([facility]) BD Ultra-Fine Short Pen Needle 31 gauge x 5/16" USE DIRECTED ONCE DAILY JEFF ([facility]) Azithromycin 250 MG Oral Tablet [facility] ([facility]) Amitriptyline Hydrochloride 75 MG Oral Tablet [facility] ([facility]) Amitriptyline Hydrochloride 50 MG Oral Tablet [facility] ([facility]) Isopropyl Alcohol 0.7 ML/ML Medicated Pad [facility] ([facility]) ziprasidone 60 MG Oral Capsule [facility] ([facility]) Ergocalciferol [id number] UNT Oral Capsule [facility] ([facility]) 0.5 ML dulaglutide 1.5 MG/ML Auto-Injector [Trulicity] [facility] ([facility]) Triamcinolone Acetonide 1 MG/ML Topical Cream [facility] ([facility]) Steglatro 5 mg tablet [facility] ([facility]) Simvastatin 10 MG Oral Tablet [facility] ([facility]) Docusate Sodium 50 MG / sennosides, GROUP HOME 8.6 MG Oral Tablet [facility] ([facility]) sennosides 8.6 mg-docusate sodium 50 mg capsule Take 2 capsules by oral route at bedtime. JEFF ([facility]) sennosides, GROUP HOME 8.6 MG Oral Tablet [Senna-Time] [facility] ([facility]) Propranolol Hydrochloride 20 MG Oral Tablet [facility] ([facility]) Prazosin 1 MG Oral Capsule A [facility] ([facility]) OneTouch Verio test strips USE DIRECTED UP TO TWO TIMES A DAY [place] ([facility]) OneTouch Verio Flex Meter AT [facility] ([facility]) OneTouch Delica Plus Lancet 33 gauge [facility] ([facility]) Mirtazapine 45 MG Oral Tablet [facility] ([facility]) Mirtazapine 15 MG Oral Tablet [facility] ([facility]) lamotrigine 25 MG Oral Tablet [facility] ([facility]) sennosides 8.6 mg-docusate sodium 50 mg capsule Take 2 capsules by oral route at bedtime. JE[facility] ([facility]) Propranolol Hydrochloride 20 MG Oral Tablet [facility] ([facility]) Prazosin 1 MG Oral Capsule A [facility] ([facility]) Mirtazapine 45 MG Oral Tablet [facility] ([facility]) Mirtazapine 15 MG Oral Tablet [facility] ([facility]) lamotrigine 25 MG Oral Tablet [facility] ([facility]) Ketoconazole 20 MG/ML Medicated Shampoo [facility] ([facility]) Famotidine 20 MG Oral Tablet [facility] ([facility]) Clonidine Hydrochloride 0.2 MG Oral Tablet [facility] ([facility]) Clonazepam 1 MG Oral Tablet [facility] ([facility]) Clonazepam 0.5 MG Oral Tablet [facility] [facility] cefdinir 300 MG Oral Capsule [facility] ([facility]) buspirone hydrochloride 7.5 MG Oral Tablet JE[facility] ([facility]) buspirone hydrochloride 10 MG Oral Tablet JE[facility] ([facility]) benztropine mesylate 0.5 MG Oral Tablet [facility] ([facility]) benzonatate 200 MG Oral Capsule JE[facility] ([facility]) Azithromycin 250 MG Oral Tablet [facility] ([facility]) Amitriptyline Hydrochloride 75 MG Oral Tablet [facility] ([facility]) Amitriptyline Hydrochloride 50 MG Oral Tablet [facility] ([facility]) Mirtazapine 45 MG Oral Tablet [facility] ([facility]) Mirtazapine 15 MG Oral Tablet [facility] ([facility]) Ketoconazole 20 MG/ML Medicated Shampoo JE[facility] ([facility]) Famotidine 20 MG Oral Tablet [facility] ([facility]) Clonidine Hydrochloride 0.2 MG Oral Tablet [facility] ([facility]) Clonazepam 1 MG Oral Tablet [facility] ([facility]) cefdinir 300 MG Oral Capsule JE[facility] ([facility]) buspirone hydrochloride 7.5 MG Oral Tablet [facility] ([facility]) buspirone hydrochloride 10 MG Oral Tablet [facility] ([facility]) benztropine mesylate 0.5 MG Oral Tablet [facility] ([facility]) benzonatate 200 MG Oral Capsule JE[facility] ([facility]) Azithromycin 250 MG Oral Tablet [facility] ([facility]) Amitriptyline Hydrochloride 75 MG Oral Tablet [facility] ([facility]) Amitriptyline Hydrochloride 50 MG Oral Tablet [facility] ([facility]) ziprasidone 60 MG Oral Capsule [facility] ([facility]) 0.5 ML dulaglutide 1.5 MG/ML Auto-Injector [Trulicity] JEFF ([facility]) Triamcinolone Acetonide 1 MG/ML Topical Cream JE[facility] ([facility]) Docusate Sodium 50 MG / sennosides, GROUP HOME 8.6 MG Oral Tablet JE[facility] ([facility]) sennosides 8.6 mg-docusate sodium 50 mg capsule Take 2 capsules by oral route at bedtime. JEFF ([facility]) Propranolol Hydrochloride 20 MG Oral Tablet JE[facility] ([facility]) Mirtazapine 45 MG Oral Tablet [facility] ([facility]) Mirtazapine 15 MG Oral Tablet [facility] ([facility]) Ketoconazole 20 MG/ML Medicated Shampoo [facility] ([facility]) Propranolol Hydrochloride 20 MG Oral Tablet [facility] ([facility]) Mirtazapine 45 MG Oral Tablet [facility] ([facility]) Mirtazapine 15 MG Oral Tablet [facility] ([facility]) lamotrigine 25 MG Oral Tablet [facility] ([facility]) Ketoconazole 20 MG/ML Medicated Shampoo [facility] ([facility]) Famotidine 20 MG Oral Tablet [facility] ([facility]) Clonidine Hydrochloride 0.2 MG Oral Tablet [facility] ([facility]) Clonazepam 1 MG Oral Tablet [facility] ([facility]) cefdinir 300 MG Oral Capsule JE[facility] ([facility]) buspirone hydrochloride 7.5 MG Oral Tablet [facility] ([facility]) Famotidine 20 MG Oral Tablet JE[facility] ([facility]) Clonidine Hydrochloride 0.2 MG Oral Tablet [facility] ([facility]) Clonazepam 1 MG Oral Tablet JE[facility] ([facility]) cefdinir 300 MG Oral Capsule JE[facility] ([facility]) buspirone hydrochloride 7.5 MG Oral Tablet [facility] ([facility]) buspirone hydrochloride 10 MG Oral Tablet [facility] ([facility]) benztropine mesylate 0.5 MG Oral Tablet [facility] ([facility]) benzonatate 200 MG Oral Capsule JE[facility] ([facility]) Azithromycin 250 MG Oral Tablet [facility] ([facility]) Amitriptyline Hydrochloride 75 MG Oral Tablet [facility] ([facility]) Amitriptyline Hydrochloride 50 MG Oral Tablet [facility] ([facility]) ziprasidone 60 MG Oral Capsule JE[facility] ([facility]) 0.5 ML dulaglutide 1.5 MG/ML Auto-Injector [Trulicity] JEFF ([facility]) Triamcinolone Acetonide 1 MG/ML Topical Cream JE[facility] ([facility]) Ketoconazole 20 MG/ML Medicated Shampoo JE[facility] ([facility]) Famotidine 20 MG Oral Tablet JE[facility] ([facility]) Clonidine Hydrochloride 0.2 MG Oral Tablet [facility] ([facility]) Clonazepam 1 MG Oral Tablet [facility] ([facility]) cefdinir 300 MG Oral Capsule JEFF ([facility]) buspirone hydrochloride 7.5 MG Oral Tablet JE[facility] ([facility]) buspirone hydrochloride 10 MG Oral Tablet [facility] ([facility]) benztropine mesylate 0.5 MG Oral Tablet [facility] ([facility]) benzonatate 200 MG Oral Capsule JE[facility] ([facility]) Azithromycin 250 MG Oral Tablet [facility] ([facility]) Amitriptyline Hydrochloride 75 MG Oral Tablet [facility] ([facility]) Amitriptyline Hydrochloride 50 MG Oral Tablet [facility] ([facility]) ziprasidone 60 MG Oral Capsule JE[facility] ([facility]) 0.5 ML dulaglutide 1.5 MG/ML Auto-Injector [Trulicity] JEFF ([facility]) Triamcinolone Acetonide 1 MG/ML Topical Cream JE[facility] ([facility]) Docusate Sodium 50 MG / sennosides, GROUP [facility] 8.6 MG Oral Tablet [facility] ([facility]) sennosides 8.6 mg-docusate sodium 50 mg capsule Take 2 capsules by oral route at bedtime. JEFF ([facility]) Propranolol Hydrochloride 20 MG Oral Tablet [facility] ([facility]) ziprasidone 60 MG Oral Capsule JE[facility] ([facility]) 0.5 ML dulaglutide 1.5 MG/ML Auto-Injector [Trulicity] JEFF ([facility]) Triamcinolone Acetonide 1 MG/ML Topical Cream JE[facility] ([facility]) Docusate Sodium 50 MG / sennosides, GROUP HOME 8.6 MG Oral Tablet [facility] ([facility]) sennosides 8.6 mg-docusate sodium 50 mg capsule Take 2 capsules by oral route at bedtime. JEFF ([facility]) Propranolol Hydrochloride 20 MG Oral Tablet [facility] ([facility]) Mirtazapine 45 MG Oral Tablet [facility] ([facility]) Mirtazapine 15 MG Oral Tablet [facility] ([facility]) Ketoconazole 20 MG/ML Medicated Shampoo [facility] ([facility]) Famotidine 20 MG Oral Tablet [facility] ([facility]) Clonidine Hydrochloride 0.2 MG Oral Tablet [facility] ([facility]) Clonazepam 1 MG Oral Tablet [facility] ([facility]) Docusate Sodium 50 MG / sennosides, GROUP [facility] 8.6 MG Oral Tablet [facility] ([facility]) sennosides 8.6 mg-docusate sodium 50 mg capsule Take 2 capsules by oral route at bedtime. JEFF ([facility]) Propranolol Hydrochloride 20 MG Oral Tablet [facility] ([facility]) Mirtazapine 45 MG Oral Tablet [facility] ([facility]) Mirtazapine 15 MG Oral Tablet [facility] ([facility]) Ketoconazole 20 MG/ML Medicated Shampoo JE[facility] ([facility]) Famotidine 20 MG Oral Tablet [facility] ([facility]) Clonidine Hydrochloride 0.2 MG Oral Tablet [facility] ([facility]) Clonazepam 1 MG Oral Tablet [facility] ([facility]) cefdinir 300 MG Oral Capsule JE[facility] ([facility]) buspirone hydrochloride 7.5 MG Oral Tablet [facility] ([facility]) buspirone hydrochloride 10 MG Oral Tablet [facility] ([facility]) benztropine mesylate 0.5 MG Oral Tablet [facility] ([facility]) benzonatate 200 MG Oral Capsule [facility] ([facility]) Azithromycin 250 MG Oral Tablet [facility] ([facility]) Amitriptyline Hydrochloride 75 MG Oral Tablet [facility] ([facility]) Amitriptyline Hydrochloride 50 MG Oral Tablet [facility] ([facility]) Docusate Sodium 50 MG / sennosides, GROUP HOME 8.6 MG Oral Tablet [facility] ([facility]) sennosides 8.6 mg-docusate sodium 50 mg capsule Take 2 capsules by oral route at bedtime. JEFF ([facility]) Propranolol Hydrochloride 20 MG Oral Tablet [facility] ([facility]) Mirtazapine 45 MG Oral Tablet [facility] ([facility]) Mirtazapine 15 MG Oral Tablet [facility] ([facility]) cefdinir 300 MG Oral Capsule JE[facility] ([facility]) buspirone hydrochloride 7.5 MG Oral Tablet [facility] ([facility]) buspirone hydrochloride 10 MG Oral Tablet [facility] ([facility]) benztropine mesylate 0.5 MG Oral Tablet [facility] ([facility]) benzonatate 200 MG Oral Capsule JE[facility] ([facility]) Azithromycin 250 MG Oral Tablet [facility] ([facility]) Amitriptyline Hydrochloride 75 MG Oral Tablet [facility] ([facility]) Amitriptyline Hydrochloride 50 MG Oral Tablet [facility] ([facility]) ziprasidone 60 MG Oral Capsule [facility] ([facility]) 0.5 ML dulaglutide 1.5 MG/ML Auto-Injector [Trulicity] JEFF ([facility]) Triamcinolone Acetonide 1 MG/ML Topical Cream JE[facility] ([facility])
[2021-08-19] MEDS ORDERED: NS 1,000 ML IV ONE (12:20)
[2021-08-19 12:59] LABS: VENOUS BASE EXCESS 0.3 (-2.0-2.0); VENOUS HCO3 28.4 MEQ/L (23.0-27.0); VENOUS O2 SATURATION 53.8 % (60.0-80.0); VENOUS PARTIAL PRESSURE CO2 58.9 mmHg (38.0-50.0); VENOUS PARTIAL PRESSURE O2 27.5 mmHg (30.0-50.0); VENOUS PH 7.301 UNITS (7.330-7.430); VENOUS STANDARD HCO3 23.5 MEQ/L; VENOUS TOTAL CO2 30.2 MEQ/L (24.0-28.0)
[2021-08-19 13:02] LABS: BASO # 0.1 10^3/uL (0.0-0.2); BASO % 0.9 % (0.0-1.0); EOS # 0.3 10^3/uL (0.0-0.5); HEMATOCRIT 49.3 % (42.0-52.0); HEMOGLOBIN 16.7 g/dl (13.5-17.5); LYMPH # 0.8 10^3/uL (1.5-5.0); LYMPH % 14.4 % (24.0-44.0); MEAN CORPUSCULAR HEMOGLOBIN 29.6 pg (27.0-33.0); MEAN CORPUSCULAR HGB CONC 33.9 g/dl (32.0-36.5); MEAN CORPUSCULAR VOLUME 87.4 fl (80.0-96.0); MONO # 0.6 10^3/uL (0.0-0.8); MONO % 11.2 % (2.0-8.0); NEUTROPHILS # 3.7 10^3/uL (1.5-8.5); NEUTROPHILS % 67.2 % (36.0-66.0); PLATELET COUNT, AUTOMATED 163 10^3/uL (150-450); RED BLOOD COUNT 5.64 10^6/uL (4.30-6.10); WHITE BLOOD COUNT 5.6 10^3/uL (4.0-10.0)
[2021-08-19 13:22] LABS: HEMOGLOBIN A1c 6.5 %
[2021-08-19 13:27] LABS: OSMOLALITY SERUM 280 MOSM/KG (275-295)
[2021-08-19 13:28] LABS: ACETONE/KETONE 0.85 MG/DL (<2.81); ALBUMIN 3.4 GM/DL (3.2-5.2); ALT/SGPT 44 U/L (12-78); BILIRUBIN,DIRECT 0.2 MG/DL (0.0-0.2); BILIRUBIN,TOTAL 0.5 MG/DL (0.2-1.0); BLOOD UREA NITROGEN 12 MG/DL (7-18); CARBON DIOXIDE LEVEL 29 MEQ/L (21-32); CHLORIDE LEVEL 100 MEQ/L (98-107); CK-MB VALUE MASS 1.7 NG/ML (<3.6); CPK CREATINE PHOSPHOKINASE 204 U/L (39-308); CREATININE FOR GFR 1.15 MG/DL (0.70-1.30); GLOMERULAR FILTRATION RATE > 60.0 (>60); GLUCOSE, FASTING 109 MG/DL (70-100); LIPASE 87 U/L (73-393); MB/CK RELATIVE INDEX 0.83 (< OR =4); PHOSPHORUS LEVEL 4.1 MG/DL (2.5-4.9); SODIUM LEVEL 136 MEQ/L (136-145); TOTAL PROTEIN 6.7 GM/DL (6.4-8.2); TROPONIN I < 0.02 NG/ML (< 0.10)
--- OUTSIDE RECORDS SUMMARY | 2021-08-19 13:48 | CCD ---
Author Author [facility] Address Unknown Phone Unavailable Support Name Relationship Address Phone Aleyda Goncalves Next Of Kin Unknown Unavailable Kinza Fritz Next Of Kin [address] [place] [address] Leela Castaneda Next Of Kin [address] [place], [place] [phone] Steven Veloz MD Next Of Kin [address] [place] [address] UNanci Next Of Kin Unknown Unavailable S[place] [address] GERRY VARGAS Next Of Kin Unknown GERRY OJEDA Next Of Kin [address] [place] [address] GERRY MONIQUE Next Of Kin [address] [place] [address] Selena MUHAMMAD, Carol Next Of Kin [address] [place] [address] NONE, NONE [place] [address] Unavailable KACY GONCALVES Next Of Kin [address] [facility] [place] [address] ISAEL [place] [address] NOBODY, TIME AT Next Of Kin [address] [place] [address] ALEYDA GONCALVES Next Of Kin [address] [place] [address] STEPHANIE, CAR[place] [address] ALANNA HATFIELD Next Of Kin [address] [facility] [address] [place] [phone] ISAEL [place] [address] DISABLED Next Of Kin Unknown GERRY OJEDA ECON Unknown Unavailable Aleyda Louie [place] [address] [place] [address] Unavailable ALEYDA GONCALVES ECON [address] [place] [address] [phone] Care Team Providers Care C Wpf Developer Name Role Phone Shiv Veloz MD Unavailable [...] Shiv Harris MD Unavailable Unavailable Kinza Yanes DIPLOMA MEDICAL ASSISTANT DIPLOMA MEDICAL ASSISTANT Unavailable Unavailable Montenegro, R Russell ELECTRIC RANGE ASSEMBLER Unavailable Unavailable Montenegro, R Russell ELECTRIC RANGE ASSEMBLER Unavailable Unavailable Montenegro, R Russell ELECTRIC RANGE ASSEMBLER Unavailable Unavailable PABLO, B LIAM ELECTRIC RANGE ASSEMBLER Unavailable Unavailable PABLO, B LIAM ELECTRIC RANGE ASSEMBLER Unavailable Unavailable PABLO, B LIAM ELECTRIC RANGE ASSEMBLER Unavailable Unavailable PABLO, B LIAM ELECTRIC RANGE ASSEMBLER Unavailable Unavailable PABLO, B LIAM ELECTRIC RANGE ASSEMBLER Unavailable Unavailable PABLO, B LIAM ELECTRIC RANGE ASSEMBLER Unavailable Unavailable PABLO, B LIAM ELECTRIC RANGE ASSEMBLER Unavailable Unavailable PABLO, B LIAM ELECTRIC RANGE ASSEMBLER Unavailable Unavailable PABLO, B LIAM ELECTRIC RANGE ASSEMBLER Unavailable Unavailable PABLO, B LIAM ELECTRIC RANGE ASSEMBLER Unavailable Unavailable PABLO, B LIAM ELECTRIC RANGE ASSEMBLER Unavailable Unavailable PABLO, B LIAM ELECTRIC RANGE ASSEMBLER Unavailable Unavailable PABLO, B LIAM ELECTRIC RANGE ASSEMBLER Unavailable Unavailable PABLO, B LIAM ELECTRIC RANGE ASSEMBLER Unavailable Unavailable PABLO, B LIAM ELECTRIC RANGE ASSEMBLER Unavailable Unavailable PABLO, B LIAM ELECTRIC RANGE ASSEMBLER Unavailable Unavailable PABLO, B ILAM ELECTRIC RANGE ASSEMBLER Unavailable Unavailable PABLO, B LIAM ELECTRIC RANGE ASSEMBLER Unavailable Unavailable PABLO, B LIAM ELECTRIC RANGE ASSEMBLER Unavailable Unavailable PABLO, B LIAM ELECTRIC RANGE ASSEMBLER Unavailable Unavailable PABLO, B LIAM ELECTRIC RANGE ASSEMBLER Unavailable Unavailable PABLO, B LIAM ELECTRIC RANGE ASSEMBLER Unavailable Unavailable PABLO, B LIAM ELECTRIC RANGE ASSEMBLER Unavailable Unavailable PABLO, B LIAM ELECTRIC RANGE ASSEMBLER Unavailable Unavailable PABLO, B LIAM ELECTRIC RANGE ASSEMBLER Unavailable Unavailable PABLO, B LIAM ELECTRIC RANGE ASSEMBLER Unavailable Unavailable PABLO, B LIAM ELECTRIC RANGE ASSEMBLER Unavailable Unavailable PABLO, B LIAM ELECTRIC RANGE ASSEMBLER Unavailable Unavailable PABLO, B LIAM ELECTRIC RANGE ASSEMBLER Unavailable Unavailable PABLO, B LIAM ELECTRIC RANGE ASSEMBLER Unavailable Unavailable PABLO, B LIAM ELECTRIC RANGE ASSEMBLER Unavailable Unavailable PABLO, B LIAM ELECTRIC RANGE ASSEMBLER Unavailable Unavailable PABLO, B LIAM ELECTRIC RANGE ASSEMBLER Unavailable Unavailable PABLO, B LIAM ELECTRIC RANGE ASSEMBLER Unavailable Unavailable PABLO, B LIAM ELECTRIC RANGE ASSEMBLER Unavailable Unavailable PABLO, B LIAM ELECTRIC RANGE ASSEMBLER Unavailable Unavailable PABLO, B LIAM ELECTRIC RANGE ASSEMBLER Unavailable Unavailable PABLO, B LIAM ELECTRIC RANGE ASSEMBLER Unavailable Unavailable PABLO, B LIAM ELECTRIC RANGE ASSEMBLER Unavailable Unavailable PABLO, B LIAM ELECTRIC RANGE ASSEMBLER Unavailable Unavailable PABLO, B LIAM ELECTRIC RANGE ASSEMBLER Unavailable Unavailable PABLO, B LIAM ELECTRIC RANGE ASSEMBLER Unavailable Unavailable PABLO, B LIAM ELECTRIC RANGE ASSEMBLER Unavailable Unavailable PABLO, B LIAM ELECTRIC RANGE ASSEMBLER Unavailable Unavailable PABLO, B LIAM ELECTRIC RANGE ASSEMBLER Unavailable Unavailable PABLO, B LIAM ELECTRIC RANGE ASSEMBLER Unavailable Unavailable PABLO, B LIAM ELECTRIC RANGE ASSEMBLER Unavailable Unavailable PABLO, B LIAM ELECTRIC RANGE ASSEMBLER Unavailable Unavailable PABLO, B LIAM ELECTRIC RANGE ASSEMBLER Unavailable Unavailable PABLO, B LIAM ELECTRIC RANGE ASSEMBLER Unavailable Unavailable PABLO, B LIAM ELECTRIC RANGE ASSEMBLER Unavailable Unavailable PABLO, B LIAM ELECTRIC RANGE ASSEMBLER Unavailable Unavailable PABLO, B LIAM ELECTRIC RANGE ASSEMBLER Unavailable Unavailable PABLO, B LIAM ELECTRIC RANGE ASSEMBLER Unavailable Unavailable PABLO, B LIAM ELECTRIC RANGE ASSEMBLER Unavailable Unavailable PABLO, B LIAM ELECTRIC RANGE ASSEMBLER Unavailable Unavailable PABLO, B LIAM ELECTRIC RANGE ASSEMBLER Unavailable Unavailable PABLO, B LIAM ELECTRIC RANGE ASSEMBLER Unavailable Unavailable PABLO, B LIAM ELECTRIC RANGE ASSEMBLER Unavailable Unavailable PABLO, B LIAM ELECTRIC RANGE ASSEMBLER Unavailable Unavailable PABLO, B LIAM ELECTRIC RANGE ASSEMBLER Unavailable Unavailable PABLO, B LIAM ELECTRIC RANGE ASSEMBLER Unavailable Unavailable MAJAK, Kim VIRGEN DPM Unavailable [...] R PARAM DPM Unavailable Unavailable MAJAK, R PRAAM DPM Unavailable Unavailable MAJAK, R PARAM DPM Unavailable Unavailable MAJAK, R PARAM DPM Unavailable Unavailable MAJAK, R PARAM DPM Unavailable Unavailable MAJAK, R PRAAM DPM Unavailable Unavailable MAJAK, R PARAM DPM [...] Unavailable Corey Basilio Unavailable Ricky, Cristy Adrienne PMH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 Unavailable Unavailable Ricky, K Adrienne PMH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 Unavailable Unavailable [place], K Adrienne PMH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 Unavailable Unavailable Ricky, K Adrienne PMH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 Unavailable Unavailable [place], K Adrienne PMH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 Unavailable Unavailable Ricky, K Adrienne PMH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 Unavailable Unavailable Ricky, K Adrienne PMH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 Unavailable Unavailable Ricky, K Adrienne PMH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 Unavailable Unavailable Cesilia Narvaez Unavailable Guido Yanes Kinza DIPLOMA MEDICAL ASSISTANT-BC Unavailable Unavailable Joaquín, F Kinza DIPLOMA MEDICAL ASSISTANT-BC Unavailable Unavailable Joaquín, F Kinza DIPLOMA MEDICAL ASSISTANT-BC Unavailable Unavailable Joaquín, F Kinza DIPLOMA MEDICAL ASSISTANT-BC Unavailable Unavailable Yanes, F Kinza DIPLOMA MEDICAL ASSISTANT-BC Unavailable Unavailable Joaquín, F Kinza DIPLOMA MEDICAL ASSISTANT-BC Unavailable Unavailable Yanes, F Kinza DIPLOMA MEDICAL ASSISTANT-BC Unavailable Unavailable Yanes, F Kinza DIPLOMA MEDICAL ASSISTANT-BC Unavailable Unavailable Yanse, F Kinza DIPLOMA MEDICAL ASSISTANT-BC Unavailable Unavailable Yanes, F Kinza DIPLOMA MEDICAL ASSISTANT-BC Unavailable Unavailable Yanes, F Kinza DIPLOMA MEDICAL ASSISTANT-BC Unavailable Unavailable Joaquín, F Kinza DIPLOMA MEDICAL ASSISTANT-BC Unavailable Unavailable Yanes, F Kinza DIPLOMA MEDICAL ASSISTANT-BC Unavailable Unavailable Guido Yanes Kinza DIPLOMA MEDICAL ASSISTANT-BC Unavailable Unavailable Guido Yanes DIPLOMA MEDICAL ASSISTANT-BC Unavailable Unavailable Guido Yanes DIPLOMA MEDICAL ASSISTANT-BC Unavailable Unavailable uGido Yanes DIPLOMA MEDICAL ASSISTANT-BC Unavailable Unavailable Guido Yanes Kinza DIPLOMA MEDICAL ASSISTANT-BC Unavailable Unavailable Guido Yanes Kinza DIPLOMA MEDICAL ASSISTANT-BC Unavailable Unavailable Guido Yanes Kinza DIPLOMA MEDICAL ASSISTANT-BC Unavailable Unavailable Guido Yanes DIPLOMA MEDICAL ASSISTANT-BC Unavailable Unavailable Guido Yanes Kinza DIPLOMA MEDICAL ASSISTANT-BC Unavailable Unavailable Guido Yanes Kinza DIPLOMA MEDICAL ASSISTANT-BC Unavailable Unavailable Scordo, M Whitney PA Unavailable [...] is protected by Article 27-F of the [facility] Public Health law. If you continue you may have access to information: Regarding HIV / AIDS; Provided by facilities licensed or operated by the [facility] Office of Mental Health; or Provided by the [facility] Office for People With Developmental Disabilities. If such information is present, then the following [facility] mandated warning applies: This information has [...] law may result in a fine or fpc sentence or both. A general authorization for the release of medical or other information is NOT sufficient authorization for further disc losure. Allergies and Adverse Reactions Type Description Substance Reaction Status Data Source(s ) Propensity to adverse reactions to substance Penicillins Penicillins Active [facility] ([facility]) Propensity to adverse reactions to substance chlorpromazine Chlorpromazine hydrochloride 100 MG Oral Tablet Active [facility] ([facility]) Family History Family Member Name Family Member Gender Family Member Status Date o f Status Description Data Source(s) Unknown Unknown Problem [facility] ([facility], ) Encounters Encounter Providers Location Date Indications Data Source(s ) Steven Veloz MD: [address] [place] [phone], Ph. Attender: Steven Veloz MD [facility] Medical 07/19/2021 12:00:00 AM EDT JEFF ([facility]) Extended Individual Psychotherapy - 45 min Attender: [facility] 07/02/2021 10:45:00 AM EDT - 07/02/2021 10:45:00 AM EDT [facility] ([facility]) Attender: [facility] 07/02/2021 12:00:00 AM EDT [facility] ([facility]) [id number] 30" Psychotherapy Attender: [facility] 06/14/2021 12:30:00 PM EDT - 06/14/2021 12:30:00 PM EDT [facility] ([facility]) Attender: [facility] 06/14/2021 12:00:00 AM EDT [facility] ([facility]) Steven Veloz MD: [address] [place] [phone], Ph. Attender: Steven Veloz MD [facility] Medical 06/12/2021 12:00:00 AM EDT JEFF ([facility]) Steven Veloz MD: [address] [place] [phone], Ph. Attender: Steven Veloz MD [facility] Medical 06/12/2021 12:00:00 AM EDT JEFF ([facility]) Brief Individual Psychotherapy - 30 min Attender: [facility] 05/31/2021 12:30:00 PM EDT - 05/31/2021 12:30:00 PM EDT [facility] ([facility]) Attender: Corey Basilio 05/31/2021 12:00:00 AM EDT [facility] ([facility]) Outpatient Attender: Russell Montenegro NP [facility] 05/30/2021 10:45:00 AM EDT - 05/30/2021 10:45:00 AM EDT [facility] ([facility]) Attender: Russell Montenegro NP 05/30/2021 12:00:00 AM EDT [facility] ([facility]) Steven Veloz MD: [address] [place] [address], Ph. Attender: Steven Veloz MD [facility] Medical 05/02/2021 12:00:00 AM EDT JEFF ([facility]) Steven Veloz MD: [address] [place] [phone], Ph. Attender: Steven Veloz MD [facility] Medical 05/02/2021 12:00:00 AM EDT JEFF ([facility]) Steven Veloz MD: [address] [place] [phone], Ph. Attender: Steven Veloz MD [facility] Medical 05/02/2021 12:00:00 AM EDT JEFF ([facility]) [id number]"Psychotherapy Attender: Corey Basilio [facility] 05/01/2021 01:00:00 AM EDT - 05/01/2021 01:00:00 AM EDT [facility] ([facility]) Attender: Corey Basilio 05/01/2021 12:00:00 AM EDT [facility] ([facility]) [place] [address] [facility] [address] 04/03/2021 12:00:00 AM EDT eCW1 ([facility]) Extended Individual Psychotherapy - 45 min Attender: Corey Basilio [facility] 03/26/2021 10:45:00 AM EDT - 03/26/2021 10:45:00 AM EDT [facility] ([facility]) Attender: Corey Basilio 03/26/2021 12:00:00 AM EDT [facility] ([facility]) Steven Veloz MD: [address] [place] [address], Ph. Attender: Steven Veloz MD [facility] Medical 03/22/2021 12:00:00 AM EDT JEFF ([facility]) Steven Veloz MD: [address] [place] [address], Ph. Attender: Steven Veloz MD [facility] Medical 03/22/2021 12:00:00 AM EDT JEFF ([facility]) Steven Veloz MD: [address] [place] [address], Ph. Attender: Steven Veloz MD [facility] Medical 03/22/2021 12:00:00 AM EDT JEFF ([facility]) Steven Velzo MD: [address] [place] [address], Ph. Attender: Steven Veloz MD [facility] Medical 03/22/2021 12:00:00 AM EDT JEFF ([facility]) Steven Veloz MD: [address] [place] [address], Ph. Attender: Steven Veloz MD [facility] Medical 03/22/2021 12:00:00 AM EDT JEFF ([facility]) Steven Veloz MD: [address] [place] [address], Ph. Attender: Steven Veloz MD [facility] Medical 03/22/2021 12:00:00 AM EDT JEFF ([facility]) Outpatient Attender: PARAM VENTURA [facility] 02/11 09:45:00 AM EDT MEDENT ([facility] Whitney Flores PA-C: [address], [place] [address], Ph. Attender: Whitney [facility] Medical 03/02/2021 12:00:00 AM EDT [place] ([facility]) Whitney Flores PA-C: [address], [place] [address], Ph. Attender: Whitney [facility] Medical 03/02/2021 12:00:00 AM EDT [place] ([facility]) Whitney Flores PA-C: [address], [place] [address], Ph. Attender: Whitney [facility] Medical 03/02/2021 12:00:00 AM EDT [place] ([facility]) Whitney Flores PA-C: [address], [place] [address], Ph. Attender: Whitney [facility] Medical 03/02/2021 12:00:00 AM EDT [place] ([facility]) Whitney Flores PA-C: [address], [place] [address], Ph. Attender: Whitney [facility] Medical 03/02/2021 12:00:00 AM EDT [place] ([facility]) Whitney Flores PA-C: [address], [place] [address], Ph. Attender: Whitney [facility] Medical 03/02/2021 12:00:00 AM EDT JEFF ([facility]) Whitney Flores PA-C: [address] [place] [address], Ph. Attender: Whitney [facility] Medical 03/02/2021 12:00:00 AM EDT JEFF ([facility]) Extended Individual Psychotherapy - 45 min Attender: [facility] Chetna [facility] 02/26/2021 12:00:00 PM EDT - 02/26/2021 12:00:00 PM EDT [facility] ([facility] Attender: Corey Basilio 02/26/2021 12:00:00 AM EDT [facility] ([facility]) Unknown [address] [facility], [facility] [address] 02/21/2021 12:00:00 AM EDT eCW1 ([facility]) Steven Veloz MD: [address] [place] [phone], Ph. Attender: Steven Veloz MD [facility] Medical 02/12/2021 12:00:00 AM EDT JEFF ([facility]) Steven Veloz MD: [address] [place] [address], Ph. Attender: Steven Veloz MD [facility] Medical 02/12/2021 12:00:00 AM EDT JEFF ([facility]) Steven Veloz MD: [address] [place] [address], Ph. Attender: Steven Veloz MD [facility] Medical 02/12/2021 12:00:00 AM EDT JEFF ([facility]) Steven Veloz MD: [address] [place] [address], Ph. Attender: Steven Veloz MD [facility] Medical 02/12/2021 12:00:00 AM EDT JEFF ([facility]) Steven Veloz MD: [address] [place] [address], Ph. Attender: Steven Veloz MD [facility] Medical 02/12/2021 12:00:00 AM EDT JEFF ([facility]) Steven Veloz MD: [address] [place] [address], Ph. Attender: Steven Veloz MD [facility] Medical 02/12/2021 12:00:00 AM EDT JEFF ([facility]) Steven Veloz MD: [address] [place] [address], Ph. Attender: Steven Veloz MD [facility] Medical 02/12/2021 12:00:00 AM EDT JEFF ([facility]) Steven Veloz MD: [address] [place] [address], Ph. Attender: Steven Veloz MD [facility] Medical 02/12/2021 12:00:00 AM EDT JEFF ([facility]) Steven Veloz MD: [address] [place] [address], Ph. Attender: Steven Veloz MD [facility] Medical 02/12/2021 12:00:00 AM EDT JEFF ([facility]) Brief Individual Psychotherapy - 30 min Attender: Corey Basilio [facility] 02/07/2021 11:30:00 AM EDT - 02/07/2021 11:30:00 AM EDT [facility] ([facility]) Attender: Corey Basilio 02/07/2021 12:00:00 AM EDT [facility] ([facility]) [place] [address] [facility] [address] 01/24/2021 12:00:00 AM EDT eCW1 ([facility]) [id number]"Psychotherapy Attender: Corey Basilio [facility] 01/18/2021 06:00:00 AM EDT - 01/18/2021 06:00:00 AM EDT [facility] ([facility]) Attender: Corey Basilio 01/18/2021 12:00:00 AM EDT [facility] ([facility]) Steven Veloz MD: [address] [place] [address], Ph. Attender: Steven Veloz MD [facility] Medical 01/09/2021 12:00:00 AM EDT JEFF ([facility]) Steven Veloz MD: [address] [place] [address]-9 [address], Ph. Attender: Steven Veloz MD [facility] Medical 01/09/2021 12:00:00 AM EDT JEFF ([facility]) Steven Veloz MD: [address] [place] [address]0 [address], Ph. Attender: Steven Veloz MD [facility] Medical 01/09/2021 12:00:00 AM EDT JEFF ([facility]) Steven Veloz MD: [address] [place] [address]-6 [address], Ph. Attender: Steven Veloz MD [facility] Medical 01/09/2021 12:00:00 AM EDT JEFF ([facility]) Steven Veloz MD: [address] [place] [address], Ph. Attender: Steven Veloz MD [facility] Medical 01/09/2021 12:00:00 AM EDT JEFF ([facility]) Steven Veloz MD: [address] [place] [address], Ph. Attender: Steven Veloz MD [facility] Medical 01/09/2021 12:00:00 AM EDT JEFF ([facility]) Steven Veloz MD: [address] [place] [address], Ph. Attender: Steven Veloz MD [facility] Medical 01/09/2021 12:00:00 AM EDT JEFF ([facility]) Steven Veloz MD: [address] [place] [address], Ph. Attender: Steven Veloz MD [facility] Medical 01/09/2021 12:00:00 AM EDT JEFF ([facility]) Steven Veloz MD: [address] [place] [address]-2 504, Ph. Attender: Steven Veloz MD [facility] Medical 01/09/2021 12:00:00 AM EDT JEFF ([facility]) Steven Veloz MD: [address] [place] [address]-0 [address], Ph. Attender: Steven Veloz MD [facility] Medical 01/09/2021 12:00:00 AM EDT JEFF ([facility]) Extended Individual Psychotherapy - 45 min Attender: Corey Basilio [facility] 12/28/2020 12:00:00 PM EDT - 12/28/2020 12:00:00 PM EDT [facility] ([facility]) Attender: Corey Basilio 12/28/2020 12:00:00 AM EDT [facility] ([facility]) Steven Veloz MD: [address] [place] [address], Ph. Attender: Steven Veloz MD [facility] Medical 12/14/2020 12:00:00 AM EST JEFF ([facility]) Steven Veloz MD: [address] [place] [address], Ph. Attender: Steven Veloz MD [facility] Medical 12/14/2020 12:00:00 AM EST JEFF ([facility]) Steven Veloz MD: [address] [place] [address], Ph. Attender: Steven Veloz MD [facility] Medical 12/14/2020 12:00:00 AM EST JEFF ([facility]) Steven Veloz MD: [address] [place] [address]-2 504, Ph. Attender: Steven Veloz MD [facility] Medical 12/14/2020 12:00:00 AM EST JEFF ([facility]) Steven Veloz MD: [address] [place] [address]-5 [address], Ph. Attender: Steven Veloz MD [facility] Medical 12/14/2020 12:00:00 AM EST JEFF ([facility]) Steven Veloz MD: [address] [place] [address]2 [address], Ph. Attender: Steven Veloz MD [facility] Medical 12/14/2020 12:00:00 AM EST JEFF ([facility]) Steven Veloz MD: [address] [place] [address], Ph. Attender: Steven Veloz MD [facility] Medical 12/14/2020 12:00:00 AM EST JEFF ([facility]) Steven Veloz MD: [address] [place] [address]-5 [address], Ph. Attender: Steven Veloz MD [facility] Medical 12/14/2020 12:00:00 AM EST JEFF ([facility]) Steven Veloz MD: [address] [place] [address]-5 [address], Ph. Attender: Steven Veloz MD [facility] Medical 12/14/2020 12:00:00 AM EST JEFF ([facility]) Steven Veloz MD: [address] [place] [address]-0 [address], Ph. Attender: Steven Veloz MD [facility] Medical 12/14/2020 12:00:00 AM EST JEFF ([facility]) Steven Veloz MD: [address] [place] [address]-5 [address], Ph. Attender: Steven Veloz MD [facility] Medical 12/14/2020 12:00:00 AM EST JEFF ([facility]) Outpatient Attender: Adrienne García 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 12/11/2020 09:30:00 AM EST - 12/11/2020 09:30:00 AM EST [facility] ([facility]) Attender: Adrienne García 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 12/11/2020 12: 00:00 AM EST [facility] ([facility]) Extended Individual Psychotherapy - 45 min Attender: Glenna Chetna [facility] 12/07/2020 12:00:00 PM EST - 12/07/2020 12:00:00 PM EST [facility] [facility] Attender: Corey Basilio 12/07/2020 12:00:00 AM EST [facility] ([facility] Outpatient [facility] [id number] 12/06/2020 12:00:00 AM EST eCW1 ([facility]) Outpatient Attender: LIAM SHAH ELECTRIC RANGE ASSEMBLER Physical Therapy 02:30:00 PM EST MEDENT ([facility]) Steven Veloz MD: [address] [place] [address], Ph. Attender: Steven Veloz MD [facility] Medical 11/10/2020 12:00:00 AM EST JEFF ([facility]) Steven Veloz MD: [address] [place] [address], Ph. Attender: Steven Veloz MD [facility] Medical 11/10/2020 12:00:00 AM EST JEFF ([facility]) Steven Veloz MD: [address] [place] [address], Ph. Attender: Steven Veloz MD [facility] Medical 11/10/2020 12:00:00 AM EST JEFF ([facility]) Steven Veloz MD: [address] [place] [address], Ph. Attender: Steven Veloz MD [facility] Medical 11/10/2020 12:00:00 AM EST JEFF ([facility]) Steven Veloz MD: [address] [place] [address], Ph. Attender: Steven Veloz MD [facility] Medical 11/10/2020 12:00:00 AM EST JEFF ([facility]) Steven Veloz MD: [address] [place] [address], Ph. Attender: Steven Veloz MD [facility] Medical 11/10/2020 12:00:00 AM EST JEFF ([facility]) Steven Veloz MD: [address] [place] [address], Ph. Attender: Steven Veloz MD [facility] Medical 11/10/2020 12:00:00 AM EST JEFF ([facility]) Steven Veloz MD: [address] [place] [address], Ph. Attender: Steven Veloz MD [facility] Medical 11/10/2020 12:00:00 AM EST JEFF ([facility]) Steven Veloz MD: [address] [place] [address], Ph. Attender: Steven Veloz MD [facility] Medical 11/10/2020 12:00:00 AM EST JEFF ([facility]) Steven Veloz MD: [address] [place] [address], Ph. Attender: Steven Veloz MD [facility] Medical 11/10/2020 12:00:00 AM EST JEFF ([facility]) Steven Veloz MD: [address] [place] [address], Ph. Attender: Steven Veloz MD [facility] Medical 11/10/2020 12:00:00 AM EST JEFF ([facility]) Steven Veloz MD: [address] [place] [address], Ph. Attender: Steven Veloz MD [facility] Medical 11/10/2020 12:00:00 AM EST JEFF ([facility]) TEMPMHCTelemed 30" Psychotherapy Attender: Corey Basilio [facility] 11/07/2020 12:00:00 PM EST - 11/07/2020 12:00:00 PM EST [facility] ([facility]) Attender: Corey Basilio 11/07/2020 12:00:00 AM EST [facility] ([facility]) Outpatient [address] [facility] [place] [address] 11/01/2020 12:00:00 AM EST eCW1 ([facility]) Outpatient Attender: Adrienne García 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 [facility] 10/25/2020 10:00:00 AM EST - 10/25/2020 10:00:00 AM EST [facility] ([facility]) Attender: Adrienne García [facility]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 10/25/2020 12: 00:00 AM EST [facility] ([facility]) Extended Individual Psychotherapy - 45 min [facility] 10/20/2020 12:00:00 PM EST - 10/20/2020 12:00:00 PM EST [facility] ([facility]) Attender: Corey Basilio 10/20/2020 12:00:00 AM EST [facility] ([facility]) Outpatient Attender: LIAM SHAH NP Physical Therapy 12:15:00 PM EST MEDENT ([facility]) Unknown [address] [facility] [address] 10/16/2020 12:00:00 AM EST eCW1 ([facility]) Steven Veloz MD: [address] [place] [address], Ph. Attender: Steven Veloz MD [facility] Medical 10/03/2020 12:00:00 AM EST JEFF ([facility]) Steven Veloz MD: [address] [place] [address], Ph. Attender: Steven Veloz MD [facility] Medical 10/03/2020 12:00:00 AM EST JEFF ([facility]) Steven Veloz MD: [address] [place] [address], Ph. Attender: Steven Veloz MD [facility] Medical 10/03/2020 12:00:00 AM EST JEFF ([facility]) Steven Veloz MD: [address] [place] [address], Ph. Attender: Steven Veloz MD [facility] Medical 10/03/2020 12:00:00 AM EST JEFF ([facility]) Steven Veloz MD: [address] [place] [address], Ph. Attender: Steven Veloz MD [facility] Medical 10/03/2020 12:00:00 AM EST JEFF ([facility]) Steven Veloz MD: [address] [place] [address], Ph. Attender: Steven Veloz MD [facility] Medical 10/03/2020 12:00:00 AM EST JEFF ([facility]) Steven Veloz MD: [address] [place] [address], Ph. Attender: Steven Veloz MD [facility] Medical 10/03/2020 12:00:00 AM EST JEFF ([facility]) Steven Veloz MD: [address] [place] [address], Ph. Attender: Steven Veloz MD [facility] Medical 10/03/2020 12:00:00 AM EST JEFF ([facility]) Steven Veloz MD: [address] [place] [address], Ph. Attender: Steven Veloz MD [facility] Medical 10/03/2020 12:00:00 AM EST JEFF ([facility]) Steven Veloz MD: [address] [place] [address], Ph. Attender: Steven Veloz MD [facility] Medical 10/03/2020 12:00:00 AM EST JEFF ([facility]) Steven Veloz MD: [address] [place] [address], Ph. Attender: Steven Veloz MD [facility] Medical 10/03/2020 12:00:00 AM EST JEFF ([facility]) Steven Veloz MD: [address] [place] [address], Ph. Attender: Steven Veloz MD [facility] Medical 10/03/2020 12:00:00 AM EST JEFF ([facility]) Steven Veloz MD: [address] [place] [address], Ph. Attender: Steven Veloz MD [facility] Medical 10/03/2020 12:00:00 AM EST JEFF ([facility]) Steven Veloz MD: [address] [place] [address], Ph. Attender: Steven Veloz MD [facility] Medical 10/03/2020 12:00:00 AM EST JEFF ([facility]) Attender: Corey Basilio 09/28/2020 12:00:00 AM EST [facility] ([facility]) Extended Individual Psychotherapy - 45 min Attender: Corey Basilio [facility] 09/26/2020 12:00:00 PM EST - 09/26/2020 12:00:00 PM EST [facility] ([facility]) Outpatient Attender: PARAM VENTURA [facility] 09/12 01:00:00 PM EST MEDENT ([facility] Outpatient Attender: Adrienne García [facility]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 [facility] 09/21/2020 09:30:00 AM EST - 09/21/2020 09:30:00 AM EST [facility] ([facility]) Attender: Adrienne Ricky [facility]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 09/21/2020 12: 00:00 AM EST Accumedic ([facility]) Extended Individual Psychotherapy - 45 min Attender: [facility] 09/11/2020 02:00:00 AM EST - 09/11/2020 02:00:00 AM EST [facility] ([facility]) Attender: Corey Basilio 09/11/2020 12:00:00 AM EST [facility]ic ([facility]) Steven Veloz MD: [address] [place] [address], Ph. Attender: Steven Veloz MD [facility] Medical 09/01/2020 12:00:00 AM EST JEFF ([facility]) Steven Veloz MD: [address] [place] [address], Ph. Attender: Steven Veloz MD [facility] Medical 09/01/2020 12:00:00 AM EST JEFF ([facility]) Steven Veloz MD: [address] [place] [address], Ph. Attender: Steven Veloz MD [facility] Medical 09/01/2020 12:00:00 AM EST JEFF ([facility]) Steven Veloz MD: [address] [place] [address], Ph. Attender: Steven Veloz MD [facility] Medical 09/01/2020 12:00:00 AM EST JEFF ([facility]) Steven Veloz MD: [address] [place] [address], Ph. Attender: Steven Veloz MD [facility] Medical 09/01/2020 12:00:00 AM EST JEFF ([facility]) Steven Veloz MD: [address] [place] [address], Ph. Attender: Steven Veloz MD [facility] Medical 09/01/2020 12:00:00 AM EST JEFF ([facility]) Steven Veloz MD: [address] [place] [address], Ph. Attender: Steven Veloz MD [facility] Medical 09/01/2020 12:00:00 AM EST JEFF ([facility]) Steven Veloz MD: [address] [place] [address], Ph. Attender: Steven Veloz MD [facility] Medical 09/01/2020 12:00:00 AM EST JEFF ([facility]) Steven Veloz MD: [address] [place] [address], Ph. Attender: Steven Veloz MD [facility] Medical 09/01/2020 12:00:00 AM EST JEFF ([facility]) Steven Veloz MD: [address] [place] [address], Ph. Attender: Steven Veloz MD [facility] Medical 09/01/2020 12:00:00 AM EST JEFF ([facility]) Steven Veloz MD: [address] [place] [address], Ph. Attender: Steven Veloz MD [facility] Medical 09/01/2020 12:00:00 AM EST JEFF ([facility]) Steven Veloz MD: [address] [place] [address], Ph. Attender: Steven Veloz MD [facility] Medical 09/01/2020 12:00:00 AM EST JEFF ([facility]) Steven Veloz MD: [address] [place] [address], Ph. Attender: Steven Veloz MD [facility] Medical 09/01/2020 12:00:00 AM EST JEFF ([facility]) Steven Veloz MD: [address] [place] [address], Ph. Attender: Steven Veloz MD [facility] Medical 09/01/2020 12:00:00 AM EST JEFF ([facility]) Steven Veloz MD: [address] [place] [address], Ph. Attender: Steven Veloz MD [facility] Medical 09/01/2020 12:00:00 AM EST JEFF ([facility]) Steven Veloz MD: [address] [place] [address], Ph. Attender: Steven Veloz MD [facility] Medical 08/25/2020 12:00:00 AM EST JEFF ([facility]) Steven Veloz MD: [address] [place] [address], Ph. Attender: Steven Veloz MD [facility] Medical 08/25/2020 12:00:00 AM EST JEFF ([facility]) Steven Veloz MD: [address] [place] [address], Ph. Attender: Steven Veloz MD [facility] Medical 08/25/2020 12:00:00 AM EST JEFF ([facility]) Steven Veloz MD: [address] [place] [address], Ph. Attender: Steven Veloz MD [facility] Medical 08/25/2020 12:00:00 AM EST JEFF ([facility]) Steven Veloz MD: [address] [place] [address], Ph. Attender: Steven Veloz MD [facility] Medical 08/25/2020 12:00:00 AM EST JEFF ([facility]) Steven Veloz MD: [address] [place] [address], Ph. Attender: Steven Veloz MD [facility] Medical 08/25/2020 12:00:00 AM EST JEFF ([facility]) Steven Veloz MD: [address] [place] [address], Ph. Attender: Steven Veloz MD [facility] Medical 08/25/2020 12:00:00 AM EST JEFF ([facility]) Steven Veloz MD: [address] [place] [address], Ph. Attender: Steven Veloz MD [facility] Medical 08/25/2020 12:00:00 AM EST JEFF ([facility]) Steven Veloz MD: [address] [place] [address], Ph. Attender: Steven Veloz MD [facility] Medical 08/25/2020 12:00:00 AM EST JEFF ([facility]) Steven Veloz MD: [address] [place] [address], Ph. Attender: Steven Veloz MD [facility] Medical 08/25/2020 12:00:00 AM EST JEFF ([facility]) Steven Veloz MD: [address] [place] [address], Ph. Attender: Steven Veloz MD [facility] Medical 08/25/2020 12:00:00 AM EST JEFF ([facility]) Steven Veloz MD: [address] [place] [address], Ph. Attender: Steven Veloz MD [facility] Medical 08/25/2020 12:00:00 AM EST JEFF ([facility]) Steven Veloz MD: [address] [place] [address], Ph. Attender: Steven Veloz MD [facility] Medical 08/25/2020 12:00:00 AM EST JEFF ([facility]) Steven Veloz MD: [address] [place] [address], Ph. Attender: Steven Veloz MD [facility] Medical 08/25/2020 12:00:00 AM EST JEFF ([facility]) Steven Veloz MD: [address] [place] [address], Ph. 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 [facility] 08/24/2020 09:30:00 AM EST - 08/24/2020 09:30:00 AM EST [facility] ([facility]) Attender: Adrienne García [facility]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 08/24/2020 12: 00:00 AM EST [facility] ([facility]) Outpatient Attender: LIAM SHAH NP Physical Therapy 02:15:00 PM EST MEDENT ([facility]) Brief Individual Psychotherapy - 30 min Attender: Cesilia rivera [facility] 08/17/2020 12:00:00 PM EST - 08/17/2020 12:00:00 PM EST [facility] ([facility]) Attender: Cesilia Narvaez 08/17/2020 12:00:00 AM EST [facility] ([facility]) Outpatient Attender: JLUIS HINTON 08/10/2020 02:40:00 PM EDT [facility] Steven Veloz MD: [address] [place], [place] [address], [place] [address], Ph. Attender: Steven Veloz MD [facility] Medical 08/10/2020 12:00:00 AM EDT JEFF ([facility]) Steven Veloz MD: [address] [place] [address], Ph. Attender: Steven Veloz MD [facility] Medical 08/10/2020 12:00:00 AM EDT JEFF ([facility]) Steven Veloz MD: [address] [place] [address], Ph. Attender: Steven Veloz MD [facility] Medical 08/10/2020 12:00:00 AM EDT JEFF ([facility]) Steven Veloz MD: [address] [place] [address], Ph. Attender: Steven Veloz MD [facility] Medical 08/10/2020 12:00:00 AM EDT JEFF ([facility]) Steven Veloz MD: [address] [place] [address], Ph. Attender: Steven Veloz MD [facility] Medical 08/10/2020 12:00:00 AM EDT JEFF ([facility]) Steven Veloz MD: [address] [place] [address], Ph. Attender: Steven Veloz MD [facility] Medical 08/10/2020 12:00:00 AM EDT JEFF ([facility]) Steven Veloz MD: [address] [place] [address], Ph. Attender: Steven Veloz MD [facility] Medical 08/10/2020 12:00:00 AM EDT JEFF ([facility]) Steven Veloz MD: [address] [place] [address], Ph. Attender: Steven Veloz MD [facility] Medical 08/10/2020 12:00:00 AM EDT JEFF ([facility]) Steven Veloz MD: [address] [place] [address]1 504, Ph. Attender: Steven Veloz MD [facility] Medical 08/10/2020 12:00:00 AM EDT JEFF ([facility]) Steven Veloz MD: [address] [place] [address], Ph. Attender: Steven Veloz MD [facility] Medical 08/10/2020 12:00:00 AM EDT JEFF ([facility]) Steven Veloz MD: [address] [place] [address], Ph. Attender: Steven Veloz MD [facility] Medical 08/10/2020 12:00:00 AM EDT JEFF ([facility]) Steven Veloz MD: [address] [place] [address]2 504, Ph. Attender: Steven Veloz MD [facility] Medical 08/10/2020 12:00:00 AM EDT JEFF ([facility]) Steven Veloz MD: [address] [place] [address], Ph. Attender: Steven Veloz MD [facility] Medical 08/10/2020 12:00:00 AM EDT JEFF ([facility]) Steven Veloz MD: [address] [place] [address], Ph. Attender: Steven Veloz MD [facility] Medical 08/10/2020 12:00:00 AM EDT JEFF ([facility]) Steven Veloz MD: [address] [place] [address], Ph. Attender: Steven Veloz MD [facility] Medical 08/10/2020 12:00:00 AM EDT JEFF ([facility]) Steven Veloz MD: [address] [place] [address], Ph. Attender: Steven Veloz MD [facility] Medical 08/10/2020 12:00:00 AM EDT JEFF ([facility]) Steven Veloz MD: [address] [place] [address], Ph. Attender: Steven Veloz MD [facility] Medical 08/10/2020 12:00:00 AM EDT JEFF ([facility]) Outpatient Attender: Kinza BELLA 07/28/2020 02: 10:01 PM EDT [facility] Outpatient Attender: JLUIS BAZZI 07/28/2020 01:17:00 PM EDT [facility] Outpatient Attender: Adrienne García [facility] 07/25/2020 09:00:00 AM EDT - 07/25/2020 09:00:00 AM EDT [facility] ([facility]) Attender: Adrienne García [facility] 07/25/2020 12: 00:00 AM EDT [facility] ([facility]) Brief Individual Psychotherapy - 30 min Attender: Cesilia rivera [facility] 07/20/2020 04:00:00 AM EDT - 07/20/2020 04:00:00 AM EDT [facility] ([facility]) Attender: Cesilia Narvaez 07/20/2020 12:00:00 AM EDT [facility] ([facility]) Outpatient Attender: Kinza BELLA FP 07/19/2020 08: 05:59 AM EDT [facility] TEMPMHCTelemed 30" Psychotherapy Attender: Cesilia Wilson [facility] Krista Acevedo 07/06/2020 04:30:00 AM EDT - 07/06/2020 04:30:00 AM EDT [facility] ([facility]) Attender: Cesilia Bryanan 07/06/2020 12:00:00 AM EDT [facility] ([facility]) Outpatient Attender: Kinza Yanes [employer]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 07/05/2020 10: 30:05 AM EDT [facility] Outpatient Attender: Kinza Yanes [employer]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 06/22/2020 02: 49:39 PM EDT [facility] Functional Status Immunizations Vaccine Date Status Description Data Source(s) COVID-19, mRNA, LNP-S, PF, 100 mcg/0.5 mL dose 01/10/2021 04 :55:18 PM EDT completed .5 mL [facility]) COVID-19, mRNA, LNP-S, PF, 100 mcg/0.5 mL dose 01/10/2021 04 :55:18 PM EDT completed .5 mL [facility]) COVID-19, mRNA, LNP-S, PF, 100 mcg/0.5 mL dose 01/10/2021 04 :55:18 PM EDT completed .5 mL [facility]) COVID-19, mRNA, LNP-S, PF, 100 mcg/0.5 mL dose 01/10/2021 04 :55:18 PM EDT [facility], mRNA, LNP-S, PF, 100 mcg/0.5 mL dose 01/10/2021 04 :55:18 PM EDT completed .5 mL [facility]) COVID-19, mRNA, LNP-S, PF, 100 mcg/0.5 mL dose 01/10/2021 04 :55:18 PM EDT completed .5 mL [facility]) COVID-19, mRNA, LNP-S, PF, 100 mcg/0.5 mL dose 01/10/2021 04 :55:18 PM EDT completed .5 mL JEFF ([facility]) COVID-19, mRNA, LNP-S, PF, 100 mcg/0.5 mL dose 01/10/2021 04 :55:18 PM EDT completed .5 mL [place] ([facility]) COVID-19, mRNA, LNP-S, PF, 100 mcg/0.5 mL dose 01/10/2021 04 :55:18 PM EDT completed .5 mL [place] ([facility]) COVID-19, mRNA, LNP-S, PF, 100 mcg/0.5 mL dose 01/10/2021 04 :55:18 PM EDT completed .5 mL [place] ([facility]) COVID-19 VACCINE Moderna 01/10/2021 12:00:00 AM EDT completed [employer]IS Vaccine Series Complete: YESThis Data wa s Submitted to [facility] Via [employer]. COVID-19, mRNA, LNP-S, PF, 100 mcg/0.5 mL dose 12/14/2020 05 :16:13 PM EST completed .5 mL [place] ([facility]) COVID-19, mRNA, LNP-S, PF, 100 mcg/0.5 mL dose 12/14/2020 05 :16:13 PM EST completed .5 mL [place] ([facility]) COVID-19, mRNA, LNP-S, PF, 100 mcg/0.5 mL dose 12/14/2020 05 :16:13 PM EST completed .5 mL JEFF ([facility]) COVID-19, mRNA, LNP-S, PF, 100 mcg/0.5 mL dose 12/14/2020 05 :16:13 PM EST completed .5 mL [place] ([facility]) COVID-19, mRNA, LNP-S, PF, 100 mcg/0.5 mL dose 12/14/2020 05 :16:13 PM EST completed .5 mL JEFF ([facility]) COVID-19, mRNA, LNP-S, PF, 100 mcg/0.5 mL dose 12/14/2020 05 :16:13 PM EST completed .5 mL JEFF ([facility]) COVID-19, mRNA, LNP-S, PF, 100 mcg/0.5 mL dose 12/14/2020 05 :16:13 PM EST completed .5 mL JEFF ([facility]) COVID-19, mRNA, LNP-S, PF, 100 mcg/0.5 mL dose 12/14/2020 05 :16:13 PM EST completed .5 mL JEFF ([facility]) COVID-19, mRNA, LNP-S, PF, 100 mcg/0.5 mL dose 12/14/2020 05 :16:13 PM EST completed .5 mL JEFF ([facility]) COVID-19, mRNA, LNP-S, PF, 100 mcg/0.5 mL dose 12/14/2020 05 :16:13 PM EST completed .5 mL JEFF ([facility]) COVID-19, mRNA, LNP-S, PF, 100 mcg/0.5 mL dose 12/14/2020 05 :16:13 PM EST completed .5 mL JEFF ([facility]) COVID-19 VACCINE Moderna 12/14/2020 12:00:00 AM EST completed NYSIIS Vaccine Series Complete: NOThis Data was Submitted to [facility] Via [employer]. New in 2011. IIV4 08/10/2020 03:51:00 PM EDT completed .5 mL JEFF ([facility]) New in 2011. IIV4 08/10/2020 03:51:00 PM EDT completed .5 mL JEFF ([facility]) New in 2011. IIV4 08/10/2020 03:51:00 PM EDT completed .5 mL JEFF ([facility]) New in 2011. IIV4 08/10/2020 03:51:00 PM EDT completed .5 mL JEFF ([facility]) New in 2011. IIV4 08/10/2020 03:51:00 PM EDT completed .5 mL JEFF ([facility]) New in 2011. IIV4 08/10/2020 03:51:00 PM EDT completed .5 mL JEFF ([facility]) New in 2011. IIV4 08/10/2020 03:51:00 PM EDT completed .5 mL JEFF ([facility]) New in 2011. IIV4 08/10/2020 03:51:00 PM EDT completed .5 mL JEFF ([facility]) New in 2011. IIV4 08/10/2020 03:51:00 PM EDT completed .5 mL JEFF ([facility]) New in 2011. IIV4 08/10/2020 03:51:00 PM EDT completed .5 mL JEFF ([facility]) New in 2011. IIV4 08/10/2020 03:51:00 PM EDT completed .5 mL JEFF ([facility]) New in 2011. IIV4 08/10/2020 03:51:00 PM EDT completed .5 mL JEFF ([facility]) New in 2011. IIV4 08/10/2020 03:51:00 PM EDT completed .5 mL JEFF ([facility]) New in 2011. IIV4 08/10/2020 03:51:00 PM EDT completed .5 mL JEFF ([facility]) New in 2011. IIV4 08/10/2020 03:51:00 PM EDT completed .5 mL JEFF ([facility]) Medications Medication Brand Name Start Date [...] propionate 0.05 MG/ACTUAT Metered Dose Shamir al Pelham 50 mcg/actuation FLUTICASONE PROPIONATE 07/21/2021 12:00:00 AM [...] 12:00:00 AM EDT completed Alcohol Prep Pads [facility] ([facility]) ALCOHOL ANTISEPTIC PADS 06/20/2021 12:00:00 AM [...] 30 mg by mouth completed <td ID="Medic ationRxNorm_4">563941</td><td ID="MedicationMedication_4">buspirone</td><td ID="MedicationRoute_4">by mouth</td><td ID="MedicationRouteConcept_4">P69532</td><td ID="MedicationStartDate_4">06/07/2021</td><td ID="MedicationStopDate_4">08/06/2021</td><td ID="MedicationDosageFrequency_4">twice a day</td><td ID="MedicationDuration_4">30</td><td ID="MedicationFormulaStrength_4">30 mg</td><td ID="MedicationDosageForm_4">tablet</td><td ID="MedicationDosageFormCode_4"></td><td ID="MedicationDosageDescription_4"></td><td ID="MedicationMedicationId_4">[id number]</td><td ID="MedicationAccount_4">[id number]</td><td ID="MedicationNpid_4">[id number]</td><td ID="MedicationAuthorFirstName_4">Susanne</td><td ID="MedicationAuthorLastName_4">Irvin</td><td ID="MedicationTaxonomyCode_4">[id number]</td><td ID="MedicationTaxonomyDesc_4">Nurse Practitioner</td><td ID="MedicationPhoneNumber_4">[phone]</td> [facility] ([facility]) buspirone hydrochloride 30 MG Oral Tablet buspirone 2020 12:00:00 AM EDT 30 mg by mouth completed <td ID="Medic ationRxNorm_6">561713</td><td ID="MedicationMedication_6">buspirone</td><td ID="MedicationRoute_6">by mouth</td><td ID="MedicationRouteConcept_6">Z72277</td><td ID="MedicationStartDate_6">06/07/2021</td><td ID="MedicationStopDate_6">08/06/2021</td><td ID="MedicationDosageFrequency_6">twice a day</td><td ID="MedicationDuration_6">30</td><td ID="MedicationFormulaStrength_6">30 mg</td><td ID="MedicationDosageForm_6">tablet</td><td ID="MedicationDosageFormCode_6"></td><td ID="MedicationDosageDescription_6"></td><td ID="MedicationMedicationId_6">[id number]</td><td ID="MedicationAccount_6">[id number]</td><td ID="MedicationNpid_6">[id number]</td><td ID="MedicationAuthorFirstName_6">Susanne</td><td ID="MedicationAuthorLastName_6">Irvin</td><td ID="MedicationTaxonomyCode_6">[id number]</td><td ID="MedicationTaxonomyDesc_6">Nurse Practitioner</td><td ID="MedicationPhoneNumber_6">[phone]</td> [facility] 400 mg 06/05/2021 12:00:00 AM EDT capsule 90 TAKE ONE CAPSULE BY MOUTH THREE TIMES A DAY TAKE ONE CAPSULE BY MOUTH THREE TIMES A DAY SOLD: 06/05/2021 [facility] 800 mg 05/30/2021 12:00:00 AM EDT [...] AM EDT 0.5 mg completed <td ID="Medicat ionRxNorm_3">218489</td><td ID="MedicationMedication_3">clonazepam</td><td ID="MedicationRoute_3"></td><td ID="MedicationRouteConcept_3"></td><td ID="MedicationStartDate_3">05/30/2021</td><td ID="MedicationStopDate_3">06/29/2021</td><td ID="MedicationDosageFrequency_3"></td><td ID="MedicationDuration_3">30</td><td ID="MedicationFormulaStrength_3">0.5 mg</td><td ID="MedicationDosageForm_3">tablet</td><td ID="MedicationDosageFormCode_3"></td><td ID="MedicationDosageDescription_3"></td><td ID="MedicationMedicationId_3">[id number]</td><td ID="MedicationAccount_3">[id number]</td><td ID="MedicationNpid_3">[id number]</td><td ID="MedicationAuthorFirstName_3">Russell</td><td ID="MedicationAuthorLastName_3">[place]</td><td ID="MedicationTaxonomyCode_3">[id number]</td><td ID="MedicationTaxonomyDesc_3">Nurse Practitioner</td><td ID="MedicationPhoneNumber_3">[phone]</td> [facility] 800 mg 05/30/2021 12:00:00 AM EDT tablet 90 TAKE ONE TABLET BY MOUTH THREE TIMES A DAY NEEDED MAXIMUM DAILY DOSE = THREE TABLETS TAKE ONE TABLET BY MOUTH THREE TIMES A DAY NEEDED MAXIMUM DAILY DOSE = THREE TABLETS SOLD: 06/25/2021 [facility] 24 HR Metformin hydrochloride 500 MG Extended [...] 30 mg by mouth completed <td ID="Medic ationRxNorm_5">169007</td><td ID="MedicationMedication_5">buspirone</td><td ID="MedicationRoute_5">by mouth</td><td ID="MedicationRouteConcept_5">Z33703</td><td ID="MedicationStartDate_5">04/10/2021</td><td ID="MedicationStopDate_5">05/10/2021</td><td ID="MedicationDosageFrequency_5">twice a day</td><td ID="MedicationDuration_5">30</td><td ID="MedicationFormulaStrength_5">30 mg</td><td ID="MedicationDosageForm_5">tablet</td><td ID="MedicationDosageFormCode_5"></td><td ID="MedicationDosageDescription_5"></td><td ID="MedicationMedicationId_5">[id number]</td><td ID="MedicationAccount_5">[id number]</td><td ID="MedicationNpid_5">[id number]</td><td ID="MedicationAuthorFirstName_5">Adrienne</td><td ID="MedicationAuthorLastName_5">[place]</td><td ID="MedicationTaxonomyCode_5">[id number]</td><td ID="MedicationTaxonomyDesc_5">Psychiatric/Mental Health</td><td ID="MedicationPhoneNumber_5">[phone]</td> [facility] ([facility]) 30 mg [...] TABLET BY MOUTH EVERY DAY SOLD: 03/29/2021 [facility] Trazodone Hydrochloride 100 MG Oral Tablet [...] AM EDT 100 mg completed <td ID="Medica tionRxNorm_5">013687</td><td ID="MedicationMedication_5">trazodone</td><td ID="MedicationRoute_5"></td><td ID="MedicationRouteConcept_5"></td><td ID="MedicationStartDate_5">03/22/2021</td><td ID="MedicationStopDate_5"></td><td ID="MedicationDosageFrequency_5">at bedtime</td><td ID="MedicationDuration_5"></td><td ID="MedicationFormulaStrength_5">100 mg</td><td ID="MedicationDosageForm_5">tablet</td><td ID="MedicationDosageFormCode_5"></td><td ID="MedicationDosageDescription_5"></td><td ID="MedicationMedicationId_5">[id number]</td><td ID="MedicationAccount_5">[id number]</td><td ID="MedicationNpid_5">[id number]</td><td ID="MedicationAuthorFirstName_5">Adrienne</td><td ID="MedicationAuthorLastName_5">Ricky</td><td ID="MedicationTaxonomyCode_5">[id number]</td><td ID="MedicationTaxonomyDesc_5">Psychiatric/Mental Health</td><td ID="MedicationPhoneNumber_5">[phone]</td> [facility] ([facility]) Trazodone Hydrochloride 100 MG Oral Tablet trazodone 03/22 12:00:00 AM EDT 100 mg completed <td ID="Medica tionRxNorm_4">045967</td><td ID="MedicationMedication_4">trazodone</td><td ID="MedicationRoute_4"></td><td ID="MedicationRouteConcept_4"></td><td ID="MedicationStartDate_4">03/22/2021</td><td ID="MedicationStopDate_4"></td><td ID="MedicationDosageFrequency_4">at bedtime</td><td ID="MedicationDuration_4"></td><td ID="MedicationFormulaStrength_4">100 mg</td><td ID="MedicationDosageForm_4">tablet</td><td ID="MedicationDosageFormCode_4"></td><td ID="MedicationDosageDescription_4"></td><td ID="MedicationMedicationId_4">[id number]</td><td ID="MedicationAccount_4">[id number]</td><td ID="MedicationNpid_4">[id number]</td><td ID="MedicationAuthorFirstName_4">Adrienne</td><td ID="MedicationAuthorLastName_4">[place]</td><td ID="MedicationTaxonomyCode_4">[id number]</td><td ID="MedicationTaxonomyDesc_4">Psychiatric/Mental Health</td><td ID="MedicationPhoneNumber_4">[phone]</td> [facility] Trazodone Hydrochloride 100 MG Oral Tablet trazodone 03/22 12:00:00 AM EDT 100 mg completed <td ID="Medica tionRxNorm_2">421927</td><td ID="MedicationMedication_2">trazodone</td><td ID="MedicationRoute_2"></td><td ID="MedicationRouteConcept_2"></td><td ID="MedicationStartDate_2">03/22/2021</td><td ID="MedicationStopDate_2"></td><td ID="MedicationDosageFrequency_2">at bedtime</td><td ID="MedicationDuration_2"></td><td ID="MedicationFormulaStrength_2">100 mg</td><td ID="MedicationDosageForm_2">tablet</td><td ID="MedicationDosageFormCode_2"></td><td ID="MedicationDosageDescription_2"></td><td ID="MedicationMedicationId_2">[id number]</td><td ID="MedicationAccount_2">[id number]</td><td ID="MedicationNpid_2">[id number]</td><td ID="MedicationAuthorFirstName_2">Adrienne</td><td ID="MedicationAuthorLastName_2">Ricky</td><td ID="MedicationTaxonomyCode_2">[id number]</td><td ID="MedicationTaxonomyDesc_2">Psychiatric/Mental Health</td><td ID="MedicationPhoneNumber_2">[phone]</td> [facility] ([facility]) 800 mg 03/06/2021 12:00:00 AM EDT tablet [...] 150 mg by mouth completed <td ID="Medica tionRxNorm_4">008672</td><td ID="MedicationMedication_4">lamotrigine</td><td ID="MedicationRoute_4">by mouth</td><td ID="MedicationRouteConcept_4">C42587</td><td ID="MedicationStartDate_4">02/22/2021</td><td ID="MedicationStopDate_4"></td><td ID="MedicationDosageFrequency_4">once a day</td><td ID="MedicationDuration_4"></td><td ID="MedicationFormulaStrength_4">150 mg</td><td ID="MedicationDosageForm_4">tablet</td><td ID="MedicationDosageFormCode_4"></td><td ID="MedicationDosageDescription_4"></td><td ID="MedicationMedicationId_4">[id number]</td><td ID="MedicationAccount_4">[id number]</td><td ID="MedicationNpid_4">[id number]</td><td ID="MedicationAuthorFirstName_4">Adrienne</td><td ID="MedicationAuthorLastName_4">Ricky</td><td ID="MedicationTaxonomyCode_4">[id number]</td><td ID="MedicationTaxonomyDesc_4">Psychiatric/Mental Health</td><td ID="MedicationPhoneNumber_4">[phone]</td> [facility] ([facility]) ziprasidone 80 MG Oral Capsule ZIPRASIDONE HCL [...] 30 mg by mouth completed <td ID="Medic ationRxNorm_3">546789</td><td ID="MedicationMedication_3">buspirone</td><td ID="MedicationRoute_3">by mouth</td><td ID="MedicationRouteConcept_3">C21316</td><td ID="MedicationStartDate_3">02/22/2021</td><td ID="MedicationStopDate_3"></td><td ID="MedicationDosageFrequency_3">three times a day</td><td ID="MedicationDuration_3"></td><td ID="MedicationFormulaStrength_3">30 mg</td><td ID="MedicationDosageForm_3">tablet</td><td ID="MedicationDosageFormCode_3"></td><td ID="MedicationDosageDescription_3"></td><td ID="MedicationMedicationId_3">74942</td><td ID="MedicationAccount_3">[id number]</td><td ID="MedicationNpid_3">[id number]</td><td ID="MedicationAuthorFirstName_3">Adrienne</td><td ID="MedicationAuthorLastName_3">[place]</td><td ID="MedicationTaxonomyCode_3">[id number]</td><td ID="MedicationTaxonomyDesc_3">Psychiatric/Mental Health</td><td ID="MedicationPhoneNumber_3">[phone]</td> [facility] ([facility]) 150 mg 02/22/2021 12:00:00 AM EDT tablet 30 TAKE ONE TABLET BY MOUTH EVERY DAY TAKE ONE TABLET BY MOUTH EVERY DAY SOLD: 02/22/2021 [facility] lamotrigine 150 MG Oral Tablet lamotrigine 02/22/2021 12:00:00 AM EDT 150 mg by mouth completed <td ID="Medica tionRxNorm_3">445729</td><td ID="MedicationMedication_3">lamotrigine</td><td ID="MedicationRoute_3">by mouth</td><td ID="MedicationRouteConcept_3">A18016</td><td ID="MedicationStartDate_3">02/22/2021</td><td ID="MedicationStopDate_3"></td><td ID="MedicationDosageFrequency_3">once a day</td><td ID="MedicationDuration_3"></td><td ID="MedicationFormulaStrength_3">150 mg</td><td ID="MedicationDosageForm_3">tablet</td><td ID="MedicationDosageFormCode_3"></td><td ID="MedicationDosageDescription_3"></td><td ID="MedicationMedicationId_3">44939</td><td ID="MedicationAccount_3">[id number]</td><td ID="MedicationNpid_3">[id number]</td><td ID="MedicationAuthorFirstName_3">Adrienne</td><td ID="MedicationAuthorLastName_3">Ricky</td><td ID="MedicationTaxonomyCode_3">[id number]</td><td ID="MedicationTaxonomyDesc_3">Psychiatric/Mental Health</td><td ID="MedicationPhoneNumber_3">[phone]</td> [facility] ([facility]) 25 mcg 02/22/2021 12:00:00 AM EDT tablet [...] 150 mg by mouth completed <td ID="Medica tionRxNorm_5">544998</td><td ID="MedicationMedication_5">lamotrigine</td><td ID="MedicationRoute_5">by mouth</td><td ID="MedicationRouteConcept_5">B46731</td><td ID="MedicationStartDate_5">02/22/2021</td><td ID="MedicationStopDate_5">08/06/2021</td><td ID="MedicationDosageFrequency_5">once a day</td><td ID="MedicationDuration_5">30</td><td ID="MedicationFormulaStrength_5">150 mg</td><td ID="MedicationDosageForm_5">tablet</td><td ID="MedicationDosageFormCode_5"></td><td ID="MedicationDosageDescription_5"></td><td ID="MedicationMedicationId_5">[id number]</td><td ID="MedicationAccount_5">[id number]</td><td ID="MedicationNpid_5">[id number]</td><td ID="MedicationAuthorFirstName_5">Susanne</td><td ID="MedicationAuthorLastName_5">Irvin</td><td ID="MedicationTaxonomyCode_5">[id number]</td><td ID="MedicationTaxonomyDesc_5">Nurse Practitioner</td><td ID="MedicationPhoneNumber_5">[phone]</td> [facility] ([facility]) Clonazepam 0.5 MG Oral Tablet clonazepam 02/22/2021 12:00:00 AM EDT 0.5 mg by mouth completed <td ID="Medica tionRxNorm_2">252252</td><td ID="MedicationMedication_2">clonazepam</td><td ID="MedicationRoute_2">by mouth</td><td ID="MedicationRouteConcept_2">B95203</td><td ID="MedicationStartDate_2">02/22/2021</td><td ID="MedicationStopDate_2"></td><td ID="MedicationDosageFrequency_2"></td><td ID="MedicationDuration_2"></td><td ID="MedicationFormulaStrength_2">0.5 mg</td><td ID="MedicationDosageForm_2">tablet</td><td ID="MedicationDosageFormCode_2"></td><td ID="MedicationDosageDescription_2">as needed</td><td ID="MedicationMedicationId_2">78174</td><td ID="MedicationAccount_2">[id number]</td><td ID="MedicationNpid_2">[id number]</td><td ID="MedicationAuthorFirstName_2">Adrienne</td><td ID="MedicationAuthorLastName_2">[place]</td><td ID="MedicationTaxonomyCode_2">[id number]</td><td ID="MedicationTaxonomyDesc_2">Psychiatric/Mental Health</td><td ID="MedicationPhoneNumber_2">[phone]</td> [facility] 25 mcg 02/22/2021 12:00:00 AM EDT tablet [...] 0.5 mg by mouth completed <td ID="Medica tionRxNorm_6">168388</td><td ID="MedicationMedication_6">clonazepam</td><td ID="MedicationRoute_6">by mouth</td><td ID="MedicationRouteConcept_6">L84397</td><td ID="MedicationStartDate_6">12/11/2020</td><td ID="MedicationStopDate_6"></td><td ID="MedicationDosageFrequency_6"></td><td ID="MedicationDuration_6"></td><td ID="MedicationFormulaStrength_6">0.5 mg</td><td ID="MedicationDosageForm_6">tablet</td><td ID="MedicationDosageFormCode_6"></td><td ID="MedicationDosageDescription_6">as needed</td><td ID="MedicationMedicationId_6">68639</td><td ID="MedicationAccount_6">[id number]</td><td ID="MedicationNpid_6">[id number]</td><td ID="MedicationAuthorFirstName_6">[place]ell</td><td ID="MedicationAuthorLastName_6">[place]</td><td ID="MedicationTaxonomyCode_6">[id number]</td><td ID="MedicationTaxonomyDesc_6">Nurse Practitioner</td><td ID="MedicationPhoneNumber_6">[phone]</td> [facility] ([facility]) Propranolol Hydrochloride 40 MG Oral Tablet propranolol 12/11/2020 12:00:00 AM EST 40 mg by mouth completed <td ID="MedicationRxNorm_5">002966</td><td ID="MedicationMedication_5">propranolol</td><td ID="MedicationRoute_5">by mouth</td><td ID="MedicationRouteConcept_5">U30899</td><td ID="MedicationStartDate_5">12/11/2020</td><td ID="MedicationStopDate_5"></td><td ID="MedicationDosageFrequency_5">twice a day</td><td ID="MedicationDuration_5"></td><td ID="MedicationFormulaStrength_5">40 mg</td><td ID="MedicationDosageForm_5">tablet</td><td ID="MedicationDosageFormCode_5"></td><td ID="MedicationDosageDescription_5"></td><td ID="MedicationMedicationId_5">83016</td><td ID="MedicationAccount_5">[id number]</td><td ID="MedicationNpid_5">[id number]</td><td ID="MedicationAuthorFirstName_5">Adrienne</td><td ID="MedicationAuthorLastName_5">Ricky</td><td ID="MedicationTaxonomyCode_5">[id number]</td><td ID="MedicationTaxonomyDesc_5">Psychiatric/Mental Health</td><td ID="MedicationPhoneNumber_5">[phone]</td> [facility] ([facility]) Propranolol Hydrochloride 40 MG Oral Tablet propranolol 12/11/2020 12:00:00 AM EST 40 mg completed <td ID ="MedicationRxNorm_8">667025</td><td ID="MedicationMedication_8">propranolol</td><td ID="MedicationRoute_8"></td><td ID="MedicationRouteConcept_8"></td><td ID="MedicationStartDate_8">12/11/2020</td><td ID="MedicationStopDate_8">12/11/2020</td><td ID="MedicationDosageFrequency_8"></td><td ID="MedicationDuration_8"></td><td ID="MedicationFormulaStrength_8">40 mg</td><td ID="MedicationDosageForm_8">tablet</td><td ID="MedicationDosageFormCode_8"></td><td ID="MedicationDosageDescription_8"></td><td ID="MedicationMedicationId_8">[id number]</td><td ID="MedicationAccount_8">[id number]</td><td ID="MedicationNpid_8"></td><td ID="MedicationAuthorFirstName_8"></td><td ID="MedicationAuthorLastName_8"></td><td ID="MedicationTaxonomyCode_8"></td><td ID="MedicationTaxonomyDesc_8"></td><td ID="MedicationPhoneNumber_8"></td> [facility] ([facility]) Propranolol Hydrochloride 40 MG Oral Tablet propranolol 12/11/2020 12:00:00 AM EST 40 mg by mouth completed <td ID="MedicationRxNorm_3">484173</td><td ID="MedicationMedication_3">propranolol</td><td ID="MedicationRoute_3">by mouth</td><td ID="MedicationRouteConcept_3">K24071</td><td ID="MedicationStartDate_3">12/11/2020</td><td ID="MedicationStopDate_3"></td><td ID="MedicationDosageFrequency_3">twice a day</td><td ID="MedicationDuration_3"></td><td ID="MedicationFormulaStrength_3">40 mg</td><td ID="MedicationDosageForm_3">tablet</td><td ID="MedicationDosageFormCode_3"></td><td ID="MedicationDosageDescription_3"></td><td ID="MedicationMedicationId_3">96885</td><td ID="MedicationAccount_3">[id number]</td><td ID="MedicationNpid_3">[id number]</td><td ID="MedicationAuthorFirstName_3">Adrienne</td><td ID="MedicationAuthorLastName_3">Ricky</td><td ID="MedicationTaxonomyCode_3">[id number]</td><td ID="MedicationTaxonomyDesc_3">Psychiatric/Mental Health</td><td ID="MedicationPhoneNumber_3">[phone]</td> [facility] ([facility]) Propranolol Hydrochloride 40 MG Oral Tablet propranolol 12/11/2020 12:00:00 AM EST 40 mg by mouth completed <td ID="MedicationRxNorm_2">063841</td><td ID="MedicationMedication_2">propranolol</td><td ID="MedicationRoute_2">by mouth</td><td ID="MedicationRouteConcept_2">E82694</td><td ID="MedicationStartDate_2">12/11/2020</td><td ID="MedicationStopDate_2"></td><td ID="MedicationDosageFrequency_2">twice a day</td><td ID="MedicationDuration_2"></td><td ID="MedicationFormulaStrength_2">40 mg</td><td ID="MedicationDosageForm_2">tablet</td><td ID="MedicationDosageFormCode_2"></td><td ID="MedicationDosageDescription_2"></td><td ID="MedicationMedicationId_2">47894</td><td ID="MedicationAccount_2">[id number]</td><td ID="MedicationNpid_2">[id number]</td><td ID="MedicationAuthorFirstName_2">Adrienne</td><td ID="MedicationAuthorLastName_2">Ricky</td><td ID="MedicationTaxonomyCode_2">[id number]</td><td ID="MedicationTaxonomyDesc_2">Psychiatric/Mental Health</td><td ID="MedicationPhoneNumber_2">[phone]</td> [facility] ([facility]) ziprasidone 80 MG Oral Capsule ZIPRASIDONE HCL 12/11/2020 12:00: 00 AM EST capsule 60 TAKE ONE CAPSULE BY MOUTH TWICE A DAY TAKE ONE CAPSULE BY MOUTH TWICE A DAY SOLD: 01/16/2021 [facility] Propranolol Hydrochloride 40 MG Oral Tablet propranolol 12/11/2020 12:00:00 AM EST 40 mg by mouth completed <td ID="MedicationRxNorm_1">241124</td><td ID="MedicationMedication_1">propranolol</td><td ID="MedicationRoute_1">by mouth</td><td ID="MedicationRouteConcept_1">Q03010</td><td ID="MedicationStartDate_1">12/11/2020</td><td ID="MedicationStopDate_1"></td><td ID="MedicationDosageFrequency_1">twice a day</td><td ID="MedicationDuration_1"></td><td ID="MedicationFormulaStrength_1">40 mg</td><td ID="MedicationDosageForm_1">tablet</td><td ID="MedicationDosageFormCode_1"></td><td ID="MedicationDosageDescription_1"></td><td ID="MedicationMedicationId_1">26522</td><td ID="MedicationAccount_1">[id number]</td><td ID="MedicationNpid_1">[id number]</td><td ID="MedicationAuthorFirstName_1">Adrienne</td><td ID="MedicationAuthorLastName_1">Ricky</td><td ID="MedicationTaxonomyCode_1">[id number]</td><td ID="MedicationTaxonomyDesc_1">Psychiatric/Mental Health</td><td ID="MedicationPhoneNumber_1">[phone]</td> [facility] ([facility]) 1 mg 12/11/2020 12:00:00 AM EST capsule [...] 0.5 mg by mouth completed <td ID="Medica tionRxNorm_5">477864</td><td ID="MedicationMedication_5">clonazepam</td><td ID="MedicationRoute_5">by mouth</td><td ID="MedicationRouteConcept_5">Y14314</td><td ID="MedicationStartDate_5">12/11/2020</td><td ID="MedicationStopDate_5"></td><td ID="MedicationDosageFrequency_5"></td><td ID="MedicationDuration_5"></td><td ID="MedicationFormulaStrength_5">0.5 mg</td><td ID="MedicationDosageForm_5">tablet</td><td ID="MedicationDosageFormCode_5"></td><td ID="MedicationDosageDescription_5">as needed</td><td ID="MedicationMedicationId_5">16948</td><td ID="MedicationAccount_5">[id number]</td><td ID="MedicationNpid_5">[id number]</td><td ID="MedicationAuthorFirstName_5">[place]</td><td ID="MedicationAuthorLastName_5">[place]</td><td ID="MedicationTaxonomyCode_5">[id number]</td><td ID="MedicationTaxonomyDesc_5">Nurse Practitioner</td><td ID="MedicationPhoneNumber_5">[phone]</td> [facility] ([facility]) 40 mg 12/04/2020 12:00:00 AM EST capsule,delayed [...] 11/15/2020 12:00:00 AM EST [facility] ([facility]) 800 mg 11/11/2020 12:00:00 AM EST [...] EST 80 mg by mouth completed <td ID="Il dicationRxNorm_1">679404</td><td ID="MedicationMedication_1">ziprasidone HCl</td><td ID="MedicationRoute_1">by mouth</td><td ID="MedicationRouteConcept_1">A80058</td><td ID="MedicationStartDate_1">10/25/2020</td><td ID="MedicationStopDate_1"></td><td ID="MedicationDosageFrequency_1">twice a day</td><td ID="MedicationDuration_1"></td><td ID="MedicationFormulaStrength_1">80 mg</td><td ID="MedicationDosageForm_1">capsule</td><td ID="MedicationDosageFormCode_1"></td><td ID="MedicationDosageDescription_1"></td><td ID="MedicationMedicationId_1">[id number]</td><td ID="MedicationAccount_1">[id number]</td><td ID="MedicationNpid_1">[id number]</td><td ID="MedicationAuthorFirstName_1">Adrienne</td><td ID="MedicationAuthorLastName_1">Ricky</td><td ID="MedicationTaxonomyCode_1">[id number]</td><td ID="MedicationTaxonomyDesc_1">Psychiatric/Mental Health</td><td ID="MedicationPhoneNumber_1">[phone]</td> [facility] ziprasidone 80 MG Oral Capsule ziprasidone HCl 10/25/2020 12:00:00 AM EST 80 mg by mouth completed <td ID="Me dicationRxNorm_3">060816</td><td ID="MedicationMedication_3">ziprasidone HCl</td><td ID="MedicationRoute_3">by mouth</td><td ID="MedicationRouteConcept_3">[id number]</td><td ID="MedicationStartDate_3">10/25/2020</td><td ID="MedicationStopDate_3"></td><td ID="MedicationDosageFrequency_3">twice a day</td><td ID="MedicationDuration_3"></td><td ID="MedicationFormulaStrength_3">80 mg</td><td ID="MedicationDosageForm_3">capsule</td><td ID="MedicationDosageFormCode_3"></td><td ID="MedicationDosageDescription_3"></td><td ID="MedicationMedicationId_3">[id number]</td><td ID="MedicationAccount_3">[id number]</td><td ID="MedicationNpid_3">[id number]</td><td ID="MedicationAuthorFirstName_3">Russell</td><td ID="MedicationAuthorLastName_3">[place]</td><td ID="MedicationTaxonomyCode_3">[id number]</td><td ID="MedicationTaxonomyDesc_3">Nurse Practitioner</td><td ID="MedicationPhoneNumber_3">[phone]</td> [facility] ziprasidone 80 MG Oral Capsule ziprasidone HCl 10/25/2020 12:00:00 AM EST 80 mg by mouth completed <td ID="Me dicationRxNorm_7">609983</td><td ID="MedicationMedication_7">ziprasidone HCl</td><td ID="MedicationRoute_7">by mouth</td><td ID="MedicationRouteConcept_7">R01949</td><td ID="MedicationStartDate_7">10/25/2020</td><td ID="MedicationStopDate_7"></td><td ID="MedicationDosageFrequency_7">twice a day</td><td ID="MedicationDuration_7"></td><td ID="MedicationFormulaStrength_7">80 mg</td><td ID="MedicationDosageForm_7">capsule</td><td ID="MedicationDosageFormCode_7"></td><td ID="MedicationDosageDescription_7"></td><td ID="MedicationMedicationId_7">[id number]</td><td ID="MedicationAccount_7">[id number]</td><td ID="MedicationNpid_7">[id number]</td><td ID="MedicationAuthorFirstName_7">Russell</td><td ID="MedicationAuthorLastName_7">[place]</td><td ID="MedicationTaxonomyCode_7">[id number]</td><td ID="MedicationTaxonomyDesc_7">Nurse Practitioner</td><td ID="MedicationPhoneNumber_7">[phone]</td> [facility] ([facility]) ziprasidone 80 MG Oral Capsule ziprasidone HCl 10/25/2020 12:00:00 AM EST 80 mg by mouth completed <td ID="Me dicationRxNorm_4">831088</td><td ID="MedicationMedication_4">ziprasidone HCl</td><td ID="MedicationRoute_4">by mouth</td><td ID="MedicationRouteConcept_4">U60102</td><td ID="MedicationStartDate_4">10/25/2020</td><td ID="MedicationStopDate_4">08/06/2021</td><td ID="MedicationDosageFrequency_4">twice a day</td><td ID="MedicationDuration_4">30</td><td ID="MedicationFormulaStrength_4">80 mg</td><td ID="MedicationDosageForm_4">capsule</td><td ID="MedicationDosageFormCode_4"></td><td ID="MedicationDosageDescription_4"></td><td ID="MedicationMedicationId_4">[id number]</td><td ID="MedicationAccount_4">[id number]</td><td ID="MedicationNpid_4">[id number]</td><td ID="MedicationAuthorFirstName_4">Susanne</td><td ID="MedicationAuthorLastName_4">Irvin</td><td ID="MedicationTaxonomyCode_4">[id number]</td><td ID="MedicationTaxonomyDesc_4">Nurse Practitioner</td><td ID="MedicationPhoneNumber_4">[phone]</td> [facility] ([facility]) ziprasidone 80 MG Oral Capsule ziprasidone HCl 10/25/2020 12:00:00 AM EST 80 mg by mouth completed <td ID="Me dicationRxNorm_2">898807</td><td ID="MedicationMedication_2">ziprasidone HCl</td><td ID="MedicationRoute_2">by mouth</td><td ID="MedicationRouteConcept_2">R89974</td><td ID="MedicationStartDate_2">10/25/2020</td><td ID="MedicationStopDate_2"></td><td ID="MedicationDosageFrequency_2">twice a day</td><td ID="MedicationDuration_2"></td><td ID="MedicationFormulaStrength_2">80 mg</td><td ID="MedicationDosageForm_2">capsule</td><td ID="MedicationDosageFormCode_2"></td><td ID="MedicationDosageDescription_2"></td><td ID="MedicationMedicationId_2">02881</td><td ID="MedicationAccount_2">[id number]</td><td ID="MedicationNpid_2">[id number]</td><td ID="MedicationAuthorFirstName_2">Adrienne</td><td ID="MedicationAuthorLastName_2">Ricky</td><td ID="MedicationTaxonomyCode_2">[id number]</td><td ID="MedicationTaxonomyDesc_2">Psychiatric/Mental Health</td><td ID="MedicationPhoneNumber_2">[phone]</td> [facility] ([facility]) 20 mg 10/25/2020 12:00:00 AM EST tablet [...] 80 mg by mouth completed <td ID="Me dicationRxNorm_6">340958</td><td ID="MedicationMedication_6">ziprasidone HCl</td><td ID="MedicationRoute_6">by mouth</td><td ID="MedicationRouteConcept_6">D71331</td><td ID="MedicationStartDate_6">10/25/2020</td><td ID="MedicationStopDate_6">08/06/2021</td><td ID="MedicationDosageFrequency_6">twice a day</td><td ID="MedicationDuration_6">30</td><td ID="MedicationFormulaStrength_6">80 mg</td><td ID="MedicationDosageForm_6">capsule</td><td ID="MedicationDosageFormCode_6"></td><td ID="MedicationDosageDescription_6"></td><td ID="MedicationMedicationId_6">[id number]</td><td ID="MedicationAccount_6">[id number]</td><td ID="MedicationNpid_6">[id number]</td><td ID="MedicationAuthorFirstName_6">Susanne</td><td ID="MedicationAuthorLastName_6">Irvin</td><td ID="MedicationTaxonomyCode_6">[id number]</td><td ID="MedicationTaxonomyDesc_6">Nurse Practitioner</td><td ID="MedicationPhoneNumber_6">[phone]</td> [facility] ([facility]) 20 mg [...] 12:00:00 AM EST ORAL [facility] ([facility]) 0.5 mg 2020 [...] 1 mg by mouth completed <td ID="Medicat ionRxNorm_3">273805</td><td ID="MedicationMedication_3">prazosin</td><td ID="MedicationRoute_3">by mouth</td><td ID="MedicationRouteConcept_3">Y52348</td><td ID="MedicationStartDate_3">08/24/2020</td><td ID="MedicationStopDate_3"></td><td ID="MedicationDosageFrequency_3">at bedtime</td><td ID="MedicationDuration_3"></td><td ID="MedicationFormulaStrength_3">1 mg</td><td ID="MedicationDosageForm_3">capsule</td><td ID="MedicationDosageFormCode_3"></td><td ID="MedicationDosageDescription_3"></td><td ID="MedicationMedicationId_3">10793</td><td ID="MedicationAccount_3">[id number]</td><td ID="MedicationNpid_3">[id number]</td><td ID="MedicationAuthorFirstName_3">Adrienne</td><td ID="MedicationAuthorLastName_3">[place]</td><td ID="MedicationTaxonomyCode_3">[id number]</td><td ID="MedicationTaxonomyDesc_3">Psychiatric/Mental Health</td><td ID="MedicationPhoneNumber_3">[phone]</td> [facility] ([facility]) 1 mg 08/24/2020 12:00:00 AM EST capsule [...] 1 mg by mouth completed <td ID="Medicat ionRxNorm_2">339610</td><td ID="MedicationMedication_2">prazosin</td><td ID="MedicationRoute_2">by mouth</td><td ID="MedicationRouteConcept_2">Y63363</td><td ID="MedicationStartDate_2">08/24/2020</td><td ID="MedicationStopDate_2"></td><td ID="MedicationDosageFrequency_2">at bedtime</td><td ID="MedicationDuration_2"></td><td ID="MedicationFormulaStrength_2">1 mg</td><td ID="MedicationDosageForm_2">capsule</td><td ID="MedicationDosageFormCode_2"></td><td ID="MedicationDosageDescription_2"></td><td ID="MedicationMedicationId_2">58896</td><td ID="MedicationAccount_2">[id number]</td><td ID="MedicationNpid_2">[id number]</td><td ID="MedicationAuthorFirstName_2">Adrienne</td><td ID="MedicationAuthorLastName_2">Ricky</td><td ID="MedicationTaxonomyCode_2">[id number]</td><td ID="MedicationTaxonomyDesc_2">Psychiatric/Mental Health</td><td ID="MedicationPhoneNumber_2">[phone]</td> [facility] ([facility]) Clonazepam 0.5 MG Oral Tablet clonazepam 08/24/2020 12:00:00 AM EST 0.5 mg by mouth completed <td ID="Medica tionRxNorm_2">756588</td><td ID="MedicationMedication_2">clonazepam</td><td ID="MedicationRoute_2">by mouth</td><td ID="MedicationRouteConcept_2">G62800</td><td ID="MedicationStartDate_2">08/24/2020</td><td ID="MedicationStopDate_2"></td><td ID="MedicationDosageFrequency_2">once a day</td><td ID="MedicationDuration_2"></td><td ID="MedicationFormulaStrength_2">0.5 mg</td><td ID="MedicationDosageForm_2">tablet</td><td ID="MedicationDosageFormCode_2"></td><td ID="MedicationDosageDescription_2"></td><td ID="MedicationMedicationId_2">32993</td><td ID="MedicationAccount_2">[id number]</td><td ID="MedicationNpid_2">[id number]</td><td ID="MedicationAuthorFirstName_2">Susanne</td><td ID="MedicationAuthorLastName_2">Irvin</td><td ID="MedicationTaxonomyCode_2">[id number]</td><td ID="MedicationTaxonomyDesc_2">Nurse Practitioner</td><td ID="MedicationPhoneNumber_2">[phone]</td> [facility]) Clonazepam 0.5 MG Oral Tablet clonazepam 08/24/2020 12:00:00 AM EST 0.5 mg by mouth completed <td ID="Medica tionRxNorm_7">821866</td><td ID="MedicationMedication_7">clonazepam</td><td ID="MedicationRoute_7">by mouth</td><td ID="MedicationRouteConcept_7">N38948</td><td ID="MedicationStartDate_7">08/24/2020</td><td ID="MedicationStopDate_7">12/11/2020</td><td ID="MedicationDosageFrequency_7">once a day</td><td ID="MedicationDuration_7"></td><td ID="MedicationFormulaStrength_7">0.5 mg</td><td ID="MedicationDosageForm_7">tablet</td><td ID="MedicationDosageFormCode_7"></td><td ID="MedicationDosageDescription_7"></td><td ID="MedicationMedicationId_7">90113</td><td ID="MedicationAccount_7">[id number]</td><td ID="MedicationNpid_7">[id number]</td><td ID="MedicationAuthorFirstName_7">Susanne</td><td ID="MedicationAuthorLastName_7">Irvin</td><td ID="MedicationTaxonomyCode_7">[id number]</td><td ID="MedicationTaxonomyDesc_7">Nurse Practitioner</td><td ID="MedicationPhoneNumber_7">[phone]</td> [facility] ([facility]) Prazosin 1 MG Oral Capsule prazosin 08/24/2020 12:00:00 AM EST 1 mg by mouth completed <td ID="Medicat ionRxNorm_4">407055</td><td ID="MedicationMedication_4">prazosin</td><td ID="MedicationRoute_4">by mouth</td><td ID="MedicationRouteConcept_4">Z14228</td><td ID="MedicationStartDate_4">08/24/2020</td><td ID="MedicationStopDate_4"></td><td ID="MedicationDosageFrequency_4">at bedtime</td><td ID="MedicationDuration_4"></td><td ID="MedicationFormulaStrength_4">1 mg</td><td ID="MedicationDosageForm_4">capsule</td><td ID="MedicationDosageFormCode_4"></td><td ID="MedicationDosageDescription_4"></td><td ID="MedicationMedicationId_4">81428</td><td ID="MedicationAccount_4">[id number]</td><td ID="MedicationNpid_4">[id number]</td><td ID="MedicationAuthorFirstName_4">Adrienne</td><td ID="MedicationAuthorLastName_4">[place]</td><td ID="MedicationTaxonomyCode_4">[id number]</td><td ID="MedicationTaxonomyDesc_4">Psychiatric/Mental Health</td><td ID="MedicationPhoneNumber_4">[phone]</td> [facility] ([facility]) 100 mg 08/24/2020 12:00:00 AM EST tablet 30 TAKE ONE TABLET BY MOUTH EVERY DAY TAKE ONE TABLET BY MOUTH EVERY DAY SOLD: 08/24/2020 [facility] Clonazepam 0.5 MG Oral Tablet clonazepam 08/24/2020 12:00:00 AM EST 0.5 mg by mouth completed <td ID="Medica tionRxNorm_3">946436</td><td ID="MedicationMedication_3">clonazepam</td><td ID="MedicationRoute_3">by mouth</td><td ID="MedicationRouteConcept_3">U12513</td><td ID="MedicationStartDate_3">08/24/2020</td><td ID="MedicationStopDate_3"></td><td ID="MedicationDosageFrequency_3">once a day</td><td ID="MedicationDuration_3"></td><td ID="MedicationFormulaStrength_3">0.5 mg</td><td ID="MedicationDosageForm_3">tablet</td><td ID="MedicationDosageFormCode_3"></td><td ID="MedicationDosageDescription_3"></td><td ID="MedicationMedicationId_3">89660</td><td ID="MedicationAccount_3">[id number]</td><td ID="MedicationNpid_3">[id number]</td><td ID="MedicationAuthorFirstName_3">Adrienne</td><td ID="MedicationAuthorLastName_3">[place]</td><td ID="MedicationTaxonomyCode_3">[id number]</td><td ID="MedicationTaxonomyDesc_3">Psychiatric/Mental Health</td><td ID="MedicationPhoneNumber_3">[phone]</td> [facility] ([facility]) Jc Greene 08/18/2020 12:00:00 AM EST ORAL com pleted [facility] ([facility] ) 5 mg 08/18/2020 [...] 0.5 mg by mouth completed <td ID="Medica tionRxNorm_5">581196</td><td ID="MedicationMedication_5">clonazepam</td><td ID="MedicationRoute_5">by mouth</td><td ID="MedicationRouteConcept_5">J85200</td><td ID="MedicationStartDate_5">08/14/2020</td><td ID="MedicationStopDate_5">08/24/2020</td><td ID="MedicationDosageFrequency_5">once a day</td><td ID="MedicationDuration_5">10</td><td ID="MedicationFormulaStrength_5">0.5 mg</td><td ID="MedicationDosageForm_5">tablet</td><td ID="MedicationDosageFormCode_5"></td><td ID="MedicationDosageDescription_5">as directed</td><td ID="MedicationMedicationId_5">91308</td><td ID="MedicationAccount_5">[id number]</td><td ID="MedicationNpid_5">[id number]</td><td ID="MedicationAuthorFirstName_5">Adrienne</td><td ID="MedicationAuthorLastName_5">[place]</td><td ID="MedicationTaxonomyCode_5">[id number]</td><td ID="MedicationTaxonomyDesc_5">Psychiatric/Mental Health</td><td ID="MedicationPhoneNumber_5">[phone]</td> [facility] ([facility]) Clonazepam 0.5 MG Oral Tablet clonazepam 08/14/2020 12:00:00 AM EST 0.5 mg by mouth completed <td ID="Medica tionRxNorm_3">433534</td><td ID="MedicationMedication_3">clonazepam</td><td ID="MedicationRoute_3">by mouth</td><td ID="MedicationRouteConcept_3">T02586</td><td ID="MedicationStartDate_3">08/14/2020</td><td ID="MedicationStopDate_3">08/24/2020</td><td ID="MedicationDosageFrequency_3">once a day</td><td ID="MedicationDuration_3">10</td><td ID="MedicationFormulaStrength_3">0.5 mg</td><td ID="MedicationDosageForm_3">tablet</td><td ID="MedicationDosageFormCode_3"></td><td ID="MedicationDosageDescription_3">as directed</td><td ID="MedicationMedicationId_3">91307</td><td ID="MedicationAccount_3">[id number]</td><td ID="MedicationNpid_3">[id number]</td><td ID="MedicationAuthorFirstName_3">Adrienne</td><td ID="MedicationAuthorLastName_3">Ricky</td><td ID="MedicationTaxonomyCode_3">[id number]</td><td ID="MedicationTaxonomyDesc_3">Psychiatric/Mental Health</td><td ID="MedicationPhoneNumber_3">[phone]</td> [facility] ([facility]) lamotrigine 100 MG Oral Tablet [Lamictal] Lamictal 07/25/2020 1 2:00:00 AM EDT 100 mg by mouth completed <td ID="Me dicationRxNorm_9">586206</td><td ID="MedicationMedication_9">Lamictal</td><td ID="MedicationRoute_9">by mouth</td><td ID="MedicationRouteConcept_9">U17908</td><td ID="MedicationStartDate_9">07/25/2020</td><td ID="MedicationStopDate_9">02/18/2021</td><td ID="MedicationDosageFrequency_9">once a day</td><td ID="MedicationDuration_9">30</td><td ID="MedicationFormulaStrength_9">100 mg</td><td ID="MedicationDosageForm_9">tablet</td><td ID="MedicationDosageFormCode_9"></td><td ID="MedicationDosageDescription_9"></td><td ID="MedicationMedicationId_9">88145</td><td ID="MedicationAccount_9">[id number]</td><td ID="MedicationNpid_9">[id number]</td><td ID="MedicationAuthorFirstName_9">Susanne</td><td ID="MedicationAuthorLastName_9">Irvin</td><td ID="MedicationTaxonomyCode_9">[id number]</td><td ID="MedicationTaxonomyDesc_9">Nurse Practitioner</td><td ID="MedicationPhoneNumber_9">[phone]</td> [facility] ([facility]) lamotrigine 100 MG Oral Tablet [Lamictal] Lamictal 07/25/2020 1 2:00:00 AM EDT 100 mg by mouth completed <td ID="Me dicationRxNorm_8">302390</td><td ID="MedicationMedication_8">Lamictal</td><td ID="MedicationRoute_8">by mouth</td><td ID="MedicationRouteConcept_8">I22690</td><td ID="MedicationStartDate_8">07/25/2020</td><td ID="MedicationStopDate_8">11/22/2020</td><td ID="MedicationDosageFrequency_8">once a day</td><td ID="MedicationDuration_8">30</td><td ID="MedicationFormulaStrength_8">100 mg</td><td ID="MedicationDosageForm_8">tablet</td><td ID="MedicationDosageFormCode_8"></td><td ID="MedicationDosageDescription_8"></td><td ID="MedicationMedicationId_8">05086</td><td ID="MedicationAccount_8">[id number]</td><td ID="MedicationNpid_8">[id number]</td><td ID="MedicationAuthorFirstName_8">Adrienne</td><td ID="MedicationAuthorLastName_8">[place]</td><td ID="MedicationTaxonomyCode_8">[id number]</td><td ID="MedicationTaxonomyDesc_8">Psychiatric/Mental Health</td><td ID="MedicationPhoneNumber_8">[phone]</td> [facility] ([facility]) lamotrigine 100 MG Oral Tablet [Lamictal] Lamictal 07/25/2020 1 2:00:00 AM EDT 100 mg by mouth completed <td ID="Me dicationRxNorm_5">669664</td><td ID="MedicationMedication_5">Lamictal</td><td ID="MedicationRoute_5">by mouth</td><td ID="MedicationRouteConcept_5">W52784</td><td ID="MedicationStartDate_5">07/25/2020</td><td ID="MedicationStopDate_5">11/22/2020</td><td ID="MedicationDosageFrequency_5">once a day</td><td ID="MedicationDuration_5">30</td><td ID="MedicationFormulaStrength_5">100 mg</td><td ID="MedicationDosageForm_5">tablet</td><td ID="MedicationDosageFormCode_5"></td><td ID="MedicationDosageDescription_5"></td><td ID="MedicationMedicationId_5">54885</td><td ID="MedicationAccount_5">[id number]</td><td ID="MedicationNpid_5">[id number]</td><td ID="MedicationAuthorFirstName_5">Adrienne</td><td ID="MedicationAuthorLastName_5">[place]</td><td ID="MedicationTaxonomyCode_5">[id number]</td><td ID="MedicationTaxonomyDesc_5">Psychiatric/Mental Health</td><td ID="MedicationPhoneNumber_5">[phone]</td> [facility] ([facility]) lamotrigine 100 MG Oral Tablet [Lamictal] Lamictal 07/25/2020 1 2:00:00 AM EDT 100 mg by mouth completed <td ID="Me dicationRxNorm_6">434736</td><td ID="MedicationMedication_6">Lamictal</td><td ID="MedicationRoute_6">by mouth</td><td ID="MedicationRouteConcept_6">Z27687</td><td ID="MedicationStartDate_6">07/25/2020</td><td ID="MedicationStopDate_6">02/18/2021</td><td ID="MedicationDosageFrequency_6">once a day</td><td ID="MedicationDuration_6">30</td><td ID="MedicationFormulaStrength_6">100 mg</td><td ID="MedicationDosageForm_6">tablet</td><td ID="MedicationDosageFormCode_6"></td><td ID="MedicationDosageDescription_6"></td><td ID="MedicationMedicationId_6">10053</td><td ID="MedicationAccount_6">[id number]</td><td ID="MedicationNpid_6">[id number]</td><td ID="MedicationAuthorFirstName_6">Susanne</td><td ID="MedicationAuthorLastName_6">Irvin</td><td ID="MedicationTaxonomyCode_6">[id number]</td><td ID="MedicationTaxonomyDesc_6">Nurse Practitioner</td><td ID="MedicationPhoneNumber_6">[phone]</td> [facility] ([facility]) 100 mg 07/25/2020 12:00:00 AM EDT tablet 30 TAKE ONE TABLET BY MOUTH EVERY DAY TAKE ONE TABLET BY MOUTH EVERY DAY SOLD: 07/25/2020 [facility] lamotrigine 100 MG Oral Tablet [Lamictal] Lamictal 07/25/2020 1 2:00:00 AM EDT 100 mg by mouth completed <td ID="Me dicationRxNorm_4">788087</td><td ID="MedicationMedication_4">Lamictal</td><td ID="MedicationRoute_4">by mouth</td><td ID="MedicationRouteConcept_4">O29751</td><td ID="MedicationStartDate_4">07/25/2020</td><td ID="MedicationStopDate_4">02/18/2021</td><td ID="MedicationDosageFrequency_4">once a day</td><td ID="MedicationDuration_4">30</td><td ID="MedicationFormulaStrength_4">100 mg</td><td ID="MedicationDosageForm_4">tablet</td><td ID="MedicationDosageFormCode_4"></td><td ID="MedicationDosageDescription_4"></td><td ID="MedicationMedicationId_4">73932</td><td ID="MedicationAccount_4">[id number]</td><td ID="MedicationNpid_4">[id number]</td><td ID="MedicationAuthorFirstName_4">Susanne</td><td ID="MedicationAuthorLastName_4">Irvin</td><td ID="MedicationTaxonomyCode_4">[id number]</td><td ID="MedicationTaxonomyDesc_4">Nurse Practitioner</td><td ID="MedicationPhoneNumber_4">[phone]</td> [facility] ([facility]) lamotrigine 100 MG Oral Tablet [Lamictal] Lamictal 07/25/2020 1 2:00:00 AM EDT 100 mg by mouth completed <td ID="Me dicationRxNorm_7">882476</td><td ID="MedicationMedication_7">Lamictal</td><td ID="MedicationRoute_7">by mouth</td><td ID="MedicationRouteConcept_7">W80155</td><td ID="MedicationStartDate_7">07/25/2020</td><td ID="MedicationStopDate_7">02/18/2021</td><td ID="MedicationDosageFrequency_7">once a day</td><td ID="MedicationDuration_7">30</td><td ID="MedicationFormulaStrength_7">100 mg</td><td ID="MedicationDosageForm_7">tablet</td><td ID="MedicationDosageFormCode_7"></td><td ID="MedicationDosageDescription_7"></td><td ID="MedicationMedicationId_7">88002</td><td ID="MedicationAccount_7">[id number]</td><td ID="MedicationNpid_7">[id number]</td><td ID="MedicationAuthorFirstName_7">Susanne</td><td ID="MedicationAuthorLastName_7">Irvin</td><td ID="MedicationTaxonomyCode_7">[id number]</td><td ID="MedicationTaxonomyDesc_7">Nurse Practitioner</td><td ID="MedicationPhoneNumber_7">[phone]</td> [facility] ([facility]) 40 mg 07/19/2020 12:00:00 AM EDT tablet [...] AM EDT 25 mg completed <td ID="Me dicationRxNorm_3">571646</td><td ID="MedicationMedication_3">Lamictal</td><td ID="MedicationRoute_3"></td><td ID="MedicationRouteConcept_3"></td><td ID="MedicationStartDate_3">06/27/2020</td><td ID="MedicationStopDate_3"></td><td ID="MedicationDosageFrequency_3"></td><td ID="MedicationDuration_3"></td><td ID="MedicationFormulaStrength_3">25 mg</td><td ID="MedicationDosageForm_3">tablet</td><td ID="MedicationDosageFormCode_3"></td><td ID="MedicationDosageDescription_3"></td><td ID="MedicationMedicationId_3">47636</td><td ID="MedicationAccount_3">[id number]</td><td ID="MedicationNpid_3">[id number]</td><td ID="MedicationAuthorFirstName_3">Adrienne</td><td ID="MedicationAuthorLastName_3">Ricky</td><td ID="MedicationTaxonomyCode_3">[id number]</td><td ID="MedicationTaxonomyDesc_3">Psychiatric/Mental Health</td><td ID="MedicationPhoneNumber_3">[phone]</td> [facility] ([facility]) lamotrigine 25 MG Oral Tablet [Lamictal] Lamictal 06/27/2020 12 :00:00 AM EDT 25 mg completed <td ID="Me dicationRxNorm_4">281150</td><td ID="MedicationMedication_4">Lamictal</td><td ID="MedicationRoute_4"></td><td ID="MedicationRouteConcept_4"></td><td ID="MedicationStartDate_4">06/27/2020</td><td ID="MedicationStopDate_4"></td><td ID="MedicationDosageFrequency_4"></td><td ID="MedicationDuration_4"></td><td ID="MedicationFormulaStrength_4">25 mg</td><td ID="MedicationDosageForm_4">tablet</td><td ID="MedicationDosageFormCode_4"></td><td ID="MedicationDosageDescription_4"></td><td ID="MedicationMedicationId_4">90106</td><td ID="MedicationAccount_4">[id number]</td><td ID="MedicationNpid_4">[id number]</td><td ID="MedicationAuthorFirstName_4">Adrienne</td><td ID="MedicationAuthorLastName_4">Ricky</td><td ID="MedicationTaxonomyCode_4">[id number]</td><td ID="MedicationTaxonomyDesc_4">Psychiatric/Mental Health</td><td ID="MedicationPhoneNumber_4">[phone]</td> [facility] ([facility]) 25 mg 06/27/2020 12:00:00 AM EDT tablet [...] 80 mg by mouth completed <td ID="Me dicationRxNorm_5">905339</td><td ID="MedicationMedication_5">ziprasidone HCl</td><td ID="MedicationRoute_5">by mouth</td><td ID="MedicationRouteConcept_5">C76416</td><td ID="MedicationStartDate_5">06/20/2020</td><td ID="MedicationStopDate_5">09/23/2020</td><td ID="MedicationDosageFrequency_5">twice a day</td><td ID="MedicationDuration_5">30</td><td ID="MedicationFormulaStrength_5">80 mg</td><td ID="MedicationDosageForm_5">capsule</td><td ID="MedicationDosageFormCode_5"></td><td ID="MedicationDosageDescription_5"></td><td ID="MedicationMedicationId_5">[id number]</td><td ID="MedicationAccount_5">[id number]</td><td ID="MedicationNpid_5">[id number]</td><td ID="MedicationAuthorFirstName_5">Adrienne</td><td ID="MedicationAuthorLastName_5">Ricky</td><td ID="MedicationTaxonomyCode_5">[id number]</td><td ID="MedicationTaxonomyDesc_5">Psychiatric/Mental Health</td><td ID="MedicationPhoneNumber_5">[phone]</td> [facility] ([facility]) 400 mg 06/20/2020 12:00:00 AM EDT capsule [...] 0.5 mg by mouth completed <td ID="Medica tionRxNorm_4">[id number]</td><td ID="MedicationMedication_4">clonazepam</td><td ID="MedicationRoute_4">by mouth</td><td ID="MedicationRouteConcept_4">[id number]</td><td ID="MedicationStartDate_4">05/26/2020</td><td ID="MedicationStopDate_4">08/17/2020</td><td ID="MedicationDosageFrequency_4">once a day</td><td ID="MedicationDuration_4">30</td><td ID="MedicationFormulaStrength_4">0.5 mg</td><td ID="MedicationDosageForm_4">tablet</td><td ID="MedicationDosageFormCode_4"></td><td ID="MedicationDosageDescription_4">as directed</td><td ID="MedicationMedicationId_4">[id number]</td><td ID="MedicationAccount_4">[id number]</td><td ID="MedicationNpid_4">[id number]</td><td ID="MedicationAuthorFirstName_4">Susanne</td><td ID="MedicationAuthorLastName_4">Irvin</td><td ID="MedicationTaxonomyCode_4">[id number]</td><td ID="MedicationTaxonomyDesc_4">Nurse Practitioner</td><td ID="MedicationPhoneNumber_4">[phone]</td> [facility] ([facility]) 40 mg 05/24/2020 12:00:00 AM EDT tablet [...] AM EDT 15 mg completed <td ID="Medicat ionRxNorm_5">566405</td><td ID="MedicationMedication_5">mirtazapine</td><td ID="MedicationRoute_5"></td><td ID="MedicationRouteConcept_5"></td><td ID="MedicationStartDate_5">05/01/2020</td><td ID="MedicationStopDate_5">06/30/2020</td><td ID="MedicationDosageFrequency_5">at bedtime</td><td ID="MedicationDuration_5">30</td><td ID="MedicationFormulaStrength_5">15 mg</td><td ID="MedicationDosageForm_5">tablet</td><td ID="MedicationDosageFormCode_5"></td><td ID="MedicationDosageDescription_5"></td><td ID="MedicationMedicationId_5">[id number]</td><td ID="MedicationAccount_5">[id number]</td><td ID="MedicationNpid_5">[id number]</td><td ID="MedicationAuthorFirstName_5">Adrienne</td><td ID="MedicationAuthorLastName_5">Ricky</td><td ID="MedicationTaxonomyCode_5">[id number]</td><td ID="MedicationTaxonomyDesc_5">Psychiatric/Mental Health</td><td ID="MedicationPhoneNumber_5">[phone]</td> [facility] ([facility]) 25 mcg 04/21/2020 12:00:00 AM EDT tablet [...] 400 mg by mouth completed <td ID="Medica tionRxNorm_7">511532</td><td ID="MedicationMedication_7">gabapentin</td><td ID="MedicationRoute_7">by mouth</td><td ID="MedicationRouteConcept_7">T75274</td><td ID="MedicationStartDate_7">03/13/2020</td><td ID="MedicationStopDate_7">07/04/2021</td><td ID="MedicationDosageFrequency_7">three times a day</td><td ID="MedicationDuration_7">30</td><td ID="MedicationFormulaStrength_7">400 mg</td><td ID="MedicationDosageForm_7">capsule</td><td ID="MedicationDosageFormCode_7"></td><td ID="MedicationDosageDescription_7"> </td><td ID="MedicationMedicationId_7">[id number]</td><td ID="MedicationAccount_7">[id number]</td><td ID="MedicationNpid_7">[id number]</td><td ID="MedicationAuthorFirstName_7">Susanne</td><td ID="MedicationAuthorLastName_7">Irvin</td><td ID="MedicationTaxonomyCode_7">[id number]</td><td ID="MedicationTaxonomyDesc_7">Nurse Practitioner</td><td ID="MedicationPhoneNumber_7">[phone]</td> [facility] ([facility]) gabapentin 400 MG Oral Capsule gabapentin 03/13/2020 12:00:00 AM EDT 400 mg by mouth completed <td ID="Medica tionRxNorm_3">059526</td><td ID="MedicationMedication_3">gabapentin</td><td ID="MedicationRoute_3">by mouth</td><td ID="MedicationRouteConcept_3">D48110</td><td ID="MedicationStartDate_3">03/13/2020</td><td ID="MedicationStopDate_3">07/04/2021</td><td ID="MedicationDosageFrequency_3">three times a day</td><td ID="MedicationDuration_3">30</td><td ID="MedicationFormulaStrength_3">400 mg</td><td ID="MedicationDosageForm_3">capsule</td><td ID="MedicationDosageFormCode_3"></td><td ID="MedicationDosageDescription_3"> </td><td ID="MedicationMedicationId_3">[id number]</td><td ID="MedicationAccount_3">[id number]</td><td ID="MedicationNpid_3">[id number]</td><td ID="MedicationAuthorFirstName_3">Susanne</td><td ID="MedicationAuthorLastName_3">Irvin</td><td ID="MedicationTaxonomyCode_3">[id number]</td><td ID="MedicationTaxonomyDesc_3">Nurse Practitioner</td><td ID="MedicationPhoneNumber_3">[phone]</td> [facility] ([facility]) 8.6 mg 02/22/2020 12:00:00 AM EDT tablet [...] EDT 40 mg by mouth completed <td ID="MedicationRxNorm_6">722208</td><td ID="MedicationMedication_6">propranolol</td><td ID="MedicationRoute_6">by mouth</td><td ID="MedicationRouteConcept_6">M86390</td><td ID="MedicationStartDate_6">02/03/2020</td><td ID="MedicationStopDate_6">10/23/2020</td><td ID="MedicationDosageFrequency_6">twice a day</td><td ID="MedicationDuration_6">30</td><td ID="MedicationFormulaStrength_6">40 mg</td><td ID="MedicationDosageForm_6">tablet</td><td ID="MedicationDosageFormCode_6"></td><td ID="MedicationDosageDescription_6"></td><td ID="MedicationMedicationId_6">[id number]</td><td ID="MedicationAccount_6">[id number]</td><td ID="MedicationNpid_6">[id number]</td><td ID="MedicationAuthorFirstName_6">Adrienne</td><td ID="MedicationAuthorLastName_6">Ricky</td><td ID="MedicationTaxonomyCode_6">[id number]</td><td ID="MedicationTaxonomyDesc_6">Psychiatric/Mental Health</td><td ID="MedicationPhoneNumber_6">[phone]</td> [facility] ([facility]) Propranolol Hydrochloride 40 MG Oral Tablet propranolol 02/03/2020 12:00:00 AM EDT 40 mg by mouth completed <td ID="MedicationRxNorm_7">496998</td><td ID="MedicationMedication_7">propranolol</td><td ID="MedicationRoute_7">by mouth</td><td ID="MedicationRouteConcept_7">W21468</td><td ID="MedicationStartDate_7">02/03/2020</td><td ID="MedicationStopDate_7">10/23/2020</td><td ID="MedicationDosageFrequency_7">twice a day</td><td ID="MedicationDuration_7">30</td><td ID="MedicationFormulaStrength_7">40 mg</td><td ID="MedicationDosageForm_7">tablet</td><td ID="MedicationDosageFormCode_7"></td><td ID="MedicationDosageDescription_7"></td><td ID="MedicationMedicationId_7">[id number]</td><td ID="MedicationAccount_7">[id number]</td><td ID="MedicationNpid_7">[id number]</td><td ID="MedicationAuthorFirstName_7">Adrienne</td><td ID="MedicationAuthorLastName_7">Ricky</td><td ID="MedicationTaxonomyCode_7">[id number]</td><td ID="MedicationTaxonomyDesc_7">Psychiatric/Mental Health</td><td ID="MedicationPhoneNumber_7">[phone]</td> [facility] ([facility]) 31 gauge x 5/16" 01/26/2020 12:00:00 AM [...] THREE TIMES A DAY SOLD: 06/23/2020 [facility] Ketoconazole 20 MG/ML Medicated Shampoo ketoconazole 2 % shampoo ketoconazole 2 % shampoo completed ketoconazole 20 MG/ML Medicated Shampoo [facility] ([facility]) buspirone hydrochloride 10 MG Oral Tablet buspirone 10 mg tablet buspirone 10 mg tablet completed buspirone hydr ochloride 10 MG Oral Tablet [facility] ([facility]) Ketoconazole 20 MG/ML Medicated Shampoo ketoconazole 2 % shampoo ketoconazole 2 % shampoo completed ketoconazole 20 MG/ML Medicated Shampoo [facility] ([facility]) buspirone hydrochloride 10 MG Oral Tablet buspirone 10 mg tablet buspirone 10 mg tablet completed buspirone hydr ochloride 10 MG Oral Tablet [facility] ([facility]) Clonidine Hydrochloride 0.2 MG Oral Tablet clonidine H Cl 0.2 mg tablet clonidine HCl 0.2 mg tablet completed clonidine hydrochloride 0.2 MG Oral Tablet [facility] ([facility]) Propranolol Hydrochloride 20 MG Oral Tablet propranolo l 20 mg tablet propranolol 20 mg tablet completed propranolol hydrochloride 20 MG Oral Tablet [facility] ([facility]) Isopropyl Alcohol 0.7 ML/ML Medicated Pad Alcohol Prep Pads Alco hol Prep Pads completed isopropyl alco hol 0.7 ML/ML Medicated Pad [facility] ([facility]) Docusate Sodium 100 MG Oral Capsule [DOK] DOK 100 mg capsule DOK 100 mg capsule completed docusate sodiu m 100 MG Oral Capsule [DOK] [facility] ([facility]) Triamcinolone Acetonide 1 MG/ML Topical Cream triamcinolone acetonide 0.1 % topical cream triamcinolone acetonide 0.1 % topical cream completed triamcinolone acetonide 1 MG/ML Topical Cream [facility] ([facility]) 0.5 ML dulaglutide 1.5 MG/ML Auto-Inject or [Trulicity] Trulicity 0.75 mg/0.5 mL subcutaneous pen injector Trulicity 0.75 mg/0.5 mL subcutaneous pen injector completed 0.5 ML dulaglu tide 1.5 MG/ML Auto-Injector [Trulicity] [facility] ([facility]) Famotidine 20 MG Oral Tablet famotidine 20 mg tablet famotidine 20 mg tablet completed famotidine 20 MG Oral Tablet JEFF ([facility]) Cephalexin 500 MG Oral Capsule cephalexin 500 mg capsu le cephalexin 500 mg capsule completed cephalexin 500 MG Oral Capsule [facility] ([facility]) lamotrigine 100 MG Oral Tablet lamotrigi ne 100 mg tablet TAKE ONE TABLET BY MOUTH ONCE DAILY lamotrigine 100 mg tablet TAKE ONE TABLET BY MOUTH ONC E DAILY completed lamotrigine 10 0 MG Oral Tablet [facility] ([facility]) Mirtazapine 15 MG Oral Tablet mirtazapine 15 mg tablet derrick zapine 15 mg tablet completed mirtazapine 15 MG Oral Tablet [facility] ([facility]) Azithromycin 250 MG Oral Tablet azithromycin 250 mg ta blet azithromycin 250 mg tablet completed azithromycin 25 0 MG Oral Tablet [facility] ([facility]) Famotidine 20 MG Oral Tablet famotidine 20 mg tablet famotidine 20 mg tablet completed famotidine 20 MG Oral Tablet [facility] ([facility]) Docusate Sodium 100 MG Oral Capsule [DOK] DOK 100 mg capsule DOK 100 mg capsule completed docusate sodiu m 100 MG Oral Capsule [DOK] [facility] ([facility]) Mirtazapine 15 MG Oral Tablet mirtazapine 15 mg tablet derrick zapine 15 mg tablet completed mirtazapine 15 MG Oral Tablet [facility] ([facility]) OneTouch Verio Flex Meter [id number] compl eted OneTouch Verio Flex Meter [facility] ([facility]) cefdinir 300 MG Oral Capsule cefdinir 300 mg capsule cefdinir 30 0 mg capsule completed cefdinir 300 M G Oral Capsule [facility] ([facility]) Mirtazapine 45 MG Oral Tablet mirtazapine 45 mg tablet derrick zapine 45 mg tablet completed mirtazapine 45 MG Oral Tablet [facility] ([facility]) Triamcinolone Acetonide 1 MG/ML Topical Cream triamcinolone acetonide 0.1 % topical cream triamcinolone acetonide 0.1 % topical cream completed triamcinolone acetonide 1 MG/ML Topical Cream [facility] ([facility]) Azithromycin 250 MG Oral Tablet azithromycin 250 mg ta blet azithromycin 250 mg tablet completed azithromycin 25 0 MG Oral Tablet [facility]) Amitriptyline Hydrochloride 50 MG Oral Tablet amitript yline 50 mg tablet amitriptyline 50 mg tablet completed amitriptyline hydrochloride 50 MG Oral Tablet JE[facility] ([facility]) buspirone hydrochloride 15 MG Oral Table t buspirone 15 mg tablet TAKE ONE TABLET BY MOUTH THREE TIMES A DAY buspirone 15 mg tablet TAKE ONE TABLET B Y MOUTH THREE TIMES A DAY completed buspirone hydrochloride 15 MG Oral Tablet JE[facility] ([facility]) Propranolol Hydrochloride 20 MG Oral Tablet propranolo l 20 mg tablet propranolol 20 mg tablet completed propranolol hydrochloride 20 MG Oral Tablet [facility] ([facility]) 0.5 ML dulaglutide 1.5 MG/ML Auto-Inject or [Trulicity] Trulicity 0.75 mg/0.5 mL subcutaneous pen injector Trulicity 0.75 mg/0.5 mL subcutaneous pen injector completed 0.5 ML dulaglu tide 1.5 MG/ML Auto-Injector [Trulicity] [facility]) Clonazepam 0.5 MG Oral Tablet clonazepam 0.5 mg tablet TAKE ONE TABLET BY MOUTH NEEDED FOR 3 DAYS THEN ONE HALF TABLET UNTIL FINISHED MAXIMUM DAILY DOSE ONE TABLET clonazepam 0.5 mg tablet TAKE ONE TABLET BY MOUTH NEEDED FOR 3 DAYS THEN ONE HALF TABLET UNTIL FINISHED MAXIMUM DAILY DOSE ONE TABLET completed clonazepam 0.5 MG Or al Tablet [facility] ([facility]) sennosides, SHELTER 8.6 MG Oral Tablet [Senna-Time] senna 8.6 mg tablet senna 8.6 mg tablet completed sennosi azam, SHELTER 8.6 MG Oral Tablet [Senna-Time] [facility] ([facility]) 0.5 ML dulaglutide 1.5 MG/ML Auto-Inject or [Trulicity] Trulicity 0.75 mg/0.5 mL subcutaneous pen injector Trulicity 0.75 mg/0.5 mL subcutaneous pen injector completed 0.5 ML dulaglu tide 1.5 MG/ML Auto-Injector [Trulicity] [facility] ([facility]) ziprasidone 60 MG Oral Capsule ziprasidone 60 mg capsu le ziprasidone 60 mg capsule completed ziprasidone 60 MG Oral Capsule [facility]) Mirtazapine 45 MG Oral Tablet mirtazapine 45 mg tablet derrick zapine 45 mg tablet completed mirtazapine 45 MG Oral Tablet [facility] ([facility]) benzonatate 200 MG Oral Capsule benzonatate 200 mg cap ken[place] benzonatate 200 mg capsule completed benzonatate 20 0 MG Oral Capsule [facility] ([facility]) Triamcinolone Acetonide 1 MG/ML Topical Cream triamcinolone acetonide 0.1 % topical cream triamcinolone acetonide 0.1 % topical cream completed triamcinolone acetonide 1 MG/ML Topical Cream [facility] ([facility]) Ketoconazole 20 MG/ML Medicated Shampoo ketoconazole 2 % shampoo ketoconazole 2 % shampoo completed ketoconazole 20 MG/ML Medicated Shampoo [facility] ([facility]) ziprasidone 60 MG Oral Capsule ziprasidone 60 mg capsu le ziprasidone 60 mg capsule completed ziprasidone 60 MG Oral Capsule [facility] ([facility]) sennosides, SHELTER 8.6 MG Oral Tablet [Senna-Time] senna 8.6 mg tablet senna 8.6 mg tablet completed sennosi azam, SHELTER 8.6 MG Oral Tablet [Senna-Time] [facility] ([facility]) buspirone hydrochloride 7.5 MG Oral Tablet buspirone 7 .5 mg tablet buspirone 7.5 mg tablet completed buspirone h ydrochloride 7.5 MG Oral Tablet [facility] ([facility]) benztropine mesylate 0.5 MG Oral Tablet benztropine 0. 5 mg tablet benztropine 0.5 mg tablet completed benztrop ine mesylate 0.5 MG Oral Tablet [facility] ([facility]) Prazosin 1 MG Oral Capsule prazosin 1 mg capsule prazosin 1 mg capsule completed prazosin 1 MG Oral Capsul e [facility] ([facility]) BD Ultra-Fine Short Pen Needle 31 gauge x 5/16" USE DIRECTED ONCE DAILY [id number] completed BD Ultr a-Fine Short Pen Needle 31 gauge x 5/16" [facility] ([facility]) Ketoconazole 20 MG/ML Medicated Shampoo ketoconazole 2 % shampoo ketoconazole 2 % shampoo completed ketoconazole 20 MG/ML Medicated Shampoo [facility] ([facility]) Mirtazapine 45 MG Oral Tablet mirtazapine 45 mg tablet derrick zapine 45 mg tablet completed mirtazapine 45 MG Oral Tablet [facility] ([facility]) Azithromycin 250 MG Oral Tablet azithromycin 250 mg ta blet azithromycin 250 mg tablet completed azithromycin 25 0 MG Oral Tablet [facility] ([facility]) lamotrigine 25 MG Oral Tablet lamotrigine 25 mg tablet lamot rigine 25 mg tablet completed lamotrigine 25 MG Oral Tablet [facility] ([facility]) Isopropyl Alcohol 0.7 ML/ML Medicated Pad Alcohol Prep Pads Alco hol Prep Pads completed isopropyl alco hol 0.7 ML/ML Medicated Pad [facility] ([facility]) Ergocalciferol [id number] UNT Oral Capsule Vi tamin D2 1,250 mcg (50,000 unit) capsule Vitamin D2 1,250 mcg (50,000 unit) capsule completed ergocalciferol 1.25 MG Oral Capsule [facility] ([facility]) buspirone hydrochloride 7.5 MG Oral Tablet buspirone 7 .5 mg tablet buspirone 7.5 mg tablet completed buspirone h ydrochloride 7.5 MG Oral Tablet [facility] ([facility]) Propranolol Hydrochloride 20 MG Oral Tablet propranolo l 20 mg tablet propranolol 20 mg tablet completed propranolol hydrochloride 20 MG Oral Tablet [facility] ([facility]) cefdinir 300 MG Oral Capsule cefdinir 300 mg capsule cefdinir 30 0 mg capsule completed cefdinir 300 M G Oral Capsule [facility] ([facility]) buspirone hydrochloride 7.5 MG Oral Tablet buspirone 7 .5 mg tablet buspirone 7.5 mg tablet completed buspirone h ydrochloride 7.5 MG Oral Tablet [facility] ([facility]) Mirtazapine 15 MG Oral Tablet mirtazapine 15 mg tablet derrick zapine 15 mg tablet completed mirtazapine 15 MG Oral Tablet [facility] ([facility]) Clonazepam 0.5 MG Disintegrating Oral Ta blet clonazepam 0.5 mg disintegrating tablet clonazepam 0.5 mg disintegrating tablet completed clonazepam 0.5 MG Disintegrating Oral Tablet [facility] ([facility]) Clonidine Hydrochloride 0.2 MG Oral Tablet clonidine H Cl 0.2 mg tablet clonidine HCl 0.2 mg tablet completed clonidine hydrochloride 0.2 MG Oral Tablet [facility] ([facility]) Azithromycin 250 MG Oral Tablet azithromycin 250 mg ta blet azithromycin 250 mg tablet completed azithromycin 25 0 MG Oral Tablet [facility] ([facility]) Docusate Sodium 100 MG Oral Capsule [DOK] DOK 100 mg capsule DOK 100 mg capsule completed docusate sodiu m 100 MG Oral Capsule [DOK] [facility] ([facility]) benzonatate 200 MG Oral Capsule benzonatate 200 mg cap kenya benzonatate 200 mg capsule completed benzonatate 20 0 MG Oral Capsule [facility] ([facility]) 0.5 ML dulaglutide 1.5 MG/ML Auto-Inject or [Trulicity] Trulicity 0.75 mg/0.5 mL subcutaneous pen injector Trulicity 0.75 mg/0.5 mL subcutaneous pen injector completed 0.5 ML dulaglu tide 1.5 MG/ML Auto-Injector [Trulicity] [facility] ([facility]) ziprasidone 60 MG Oral Capsule ziprasidone 60 mg capsu le ziprasidone 60 mg capsule completed ziprasidone 60 MG Oral Capsule [facility] ([facility]) Amitriptyline Hydrochloride 50 MG Oral Tablet amitript yline 50 mg tablet amitriptyline 50 mg tablet completed amitriptyline hydrochloride 50 MG Oral Tablet [facility] ([facility]) benztropine mesylate 0.5 MG Oral Tablet benztropine 0. 5 mg tablet benztropine 0.5 mg tablet completed benztrop ine mesylate 0.5 MG Oral Tablet [facility] ([facility]) benzonatate 200 MG Oral Capsule benzonatate 200 mg cap kenya benzonatate 200 mg capsule completed benzonatate 20 0 MG Oral Capsule [facility] ([facility]) sennosides 8.6 mg-docusate sodium 50 mg capsule Take 2 capsules by oral route at bedtime. [id number] 2 capsule(s) completed docusate sodium 50 MG / sennosides, SHELTER 8.6 MG Oral Capsule [facility] ([facility]) buspirone hydrochloride 7.5 MG Oral Tablet buspirone 7 .5 mg tablet buspirone 7.5 mg tablet completed buspirone h ydrochloride 7.5 MG Oral Tablet [facility] ([facility]) Clonidine Hydrochloride 0.2 MG Oral Tablet clonidine H Cl 0.2 mg tablet clonidine HCl 0.2 mg tablet completed clonidine hydrochloride 0.2 MG Oral Tablet [facility] ([facility]) Azithromycin 250 MG Oral Tablet azithromycin 250 mg ta blet azithromycin 250 mg tablet completed azithromycin 25 0 MG Oral Tablet [facility] ([facility]) sennosides 8.6 mg-docusate sodium 50 mg capsule Take 2 capsules by oral route at bedtime. [id number] 2 capsule(s) completed docusate sodium 50 MG / sennosides, SHELTER 8.6 MG Oral Capsule [facility] ([facility]) buspirone hydrochloride 10 MG Oral Tablet buspirone 10 mg tablet buspirone 10 mg tablet completed buspirone hydr ochloride 10 MG Oral Tablet [facility] ([facility]) Propranolol Hydrochloride 20 MG Oral Tablet propranolo l 20 mg tablet propranolol 20 mg tablet completed propranolol hydrochloride 20 MG Oral Tablet [facility] ([facility]) Amitriptyline Hydrochloride 50 MG Oral Tablet amitript yline 50 mg tablet amitriptyline 50 mg tablet completed amitriptyline hydrochloride 50 MG Oral Tablet [facility] ([facility]) cefdinir 300 MG Oral Capsule cefdinir 300 mg capsule cefdinir 30 0 mg capsule completed cefdinir 300 M G Oral Capsule [facility] ([facility]) benzonatate 200 MG Oral Capsule benzonatate 200 mg cap kenya benzonatate 200 mg capsule completed benzonatate 20 0 MG Oral Capsule [facility] ([facility]) Mirtazapine 15 MG Oral Tablet mirtazapine 15 mg tablet derrick zapine 15 mg tablet completed mirtazapine 15 MG Oral Tablet [facility] ([facility]) Famotidine 20 MG Oral Tablet famotidine 20 mg tablet famotidine 20 mg tablet completed famotidine 20 MG Oral Tablet [facility] ([facility]) benzonatate 200 MG Oral Capsule benzonatate 200 mg cap kenya benzonatate 200 mg capsule completed benzonatate 20 0 MG Oral Capsule [facility] ([facility]) sennosides 8.6 mg-docusate sodium 50 mg capsule Take 2 capsules by oral route at bedtime. [id number] 2 capsule(s) completed docusate sodium 50 MG / sennosides, SHELTER 8.6 MG Oral Capsule [facility] ([facility]) Steglatro 5 mg tablet [id number] completed ertugliflozin 5 MG Oral Tablet [Steglatro] [facility] ([facility]) Simvastatin 10 MG Oral Tablet simvastati n 10 mg tablet TAKE ONE TABLET BY MOUTH EVERY DAY simvastatin 10 mg tablet TAKE ONE TABLET BY MOUTH EVERY DAY completed simvastatin 10 MG Oral Table t [facility] ([facility]) benztropine mesylate 0.5 MG Oral Tablet benztropine 0. 5 mg tablet benztropine 0.5 mg tablet completed benztrop ine mesylate 0.5 MG Oral Tablet [facility] ([facility]) Docusate Sodium 100 MG Oral Capsule [DOK] DOK 100 mg capsule DOK 100 mg capsule completed docusate sodiu m 100 MG Oral Capsule [DOK] [facility] ([facility]) 0.5 ML dulaglutide 1.5 MG/ML Auto-Inject or [Trulicity] Trulicity 0.75 mg/0.5 mL subcutaneous pen injector Trulicity 0.75 mg/0.5 mL subcutaneous pen injector completed 0.5 ML dulaglu tide 1.5 MG/ML Auto-Injector [Trulicity] [facility] ([facility]) Docusate Sodium 50 MG / sennosides, SHELTER 8.6 MG Oral Tablet sennosides 8.6 mg- docusate sodium 50 mg tablet Take 2 tablets by oral route at bedtime. sennosides 8.6 mg-docusate sodium 50 mg tablet Take 2 tablets by oral route at bedtime. 2 completed docusate sodiu m 50 MG / sennosides, SHELTER 8.6 MG Oral Tablet JE[facility] ([facility]) Amitriptyline Hydrochloride 50 MG Oral Tablet amitript yline 50 mg tablet amitriptyline 50 mg tablet completed amitriptyline hydrochloride 50 MG Oral Tablet [facility] ([facility]) sennosides 8.6 mg-docusate sodium 50 mg capsule Take 2 capsules by oral route at bedtime. [id number] 2 capsule(s) completed docusate sodium 50 MG / sennosides, SHELTER 8.6 MG Oral Capsule JE[facility] ([facility]) Clindamycin 150 MG Oral Capsule clindamycin HCl 150 mg capsule clindamycin HCl 150 mg capsule completed clindam ycin 150 MG Oral Capsule JE[facility] ([facility]) 0.5 ML dulaglutide 1.5 MG/ML Auto-Inject or [Trulicity] Trulicity 0.75 mg/0.5 mL subcutaneous pen injector Trulicity 0.75 mg/0.5 mL subcutaneous pen injector completed 0.5 ML dulaglu tide 1.5 MG/ML Auto-Injector [Trulicity] [facility] ([facility]) buspirone hydrochloride 10 MG Oral Tablet buspirone 10 mg tablet buspirone 10 mg tablet completed buspirone hydr ochloride 10 MG Oral Tablet [facility] ([facility]) Famotidine 20 MG Oral Tablet famotidine 20 mg tablet famotidine 20 mg tablet completed famotidine 20 MG Oral Tablet JE[facility] ([facility]) Clindamycin 150 MG Oral Capsule clindamycin HCl 150 mg capsule clindamycin HCl 150 mg capsule completed clindam ycin 150 MG Oral Capsule JE[facility] ([facility]) Triamcinolone Acetonide 1 MG/ML Topical Cream triamcinolone acetonide 0.1 % topical cream triamcinolone acetonide 0.1 % topical cream completed triamcinolone acetonide 1 MG/ML Topical Cream [facility] ([facility]) Trazodone Hydrochloride 50 MG Oral Table t trazodone 50 mg tablet TAKE ONE TABLET BY MOUTH EVERY DAY AT BEDTIME trazodone 50 mg tablet TAKE ONE TABLET B Y MOUTH EVERY DAY AT BEDTIME completed trazodone hydrochloride 50 MG Oral Tablet JE[facility] ([facility]) Propranolol Hydrochloride 20 MG Oral Tablet propranolo l 20 mg tablet propranolol 20 mg tablet completed propranolol hydrochloride 20 MG Oral Tablet [facility] ([facility]) sennosides 8.6 mg-docusate sodium 50 mg capsule Take 2 capsules by oral route at bedtime. [id number] 2 capsule(s) completed docusate sodium 50 MG / sennosides, SHELTER 8.6 MG Oral Capsule [facility] [facility]) Clonazepam 1 MG Oral Tablet clonazepam 1 mg tablet clonazepam 1 mg ta blet completed clonazepam 1 MG Oral Tablet JEFF ([facility]) Triamcinolone Acetonide 1 MG/ML Topical Cream triamcinolone acetonide 0.1 % topical cream triamcinolone acetonide 0.1 % topical cream completed triamcinolone acetonide 1 MG/ML Topical Cream JEFF ([facility]) buspirone hydrochloride 15 MG Oral Table t buspirone 15 mg tablet TAKE ONE TABLET BY MOUTH THREE TIMES A DAY buspirone 15 mg tablet TAKE ONE TABLET B Y MOUTH THREE TIMES A DAY completed buspirone hydrochloride 15 MG Oral Tablet JEFF ([facility]) buspirone hydrochloride 7.5 MG Oral Tablet buspirone 7 .5 mg tablet buspirone 7.5 mg tablet completed buspirone h ydrochloride 7.5 MG Oral Tablet JEFF ([facility]) Ergocalciferol [id number] UNT Oral Capsule Vi tamin D2 1,250 mcg (50,000 unit) capsule Vitamin D2 1,250 mcg (50,000 unit) capsule completed ergocalciferol 1.25 MG Oral Capsule JEFF ([facility]) lamotrigine 25 MG Oral Tablet lamotrigine 25 mg tablet lamot rigine 25 mg tablet completed lamotrigine 25 MG Oral Tablet JEFF ([facility]) sennosides 8.6 mg-docusate sodium 50 mg capsule Take 2 capsules by oral route at bedtime. [id number] 2 capsule(s) completed docusate sodium 50 MG / sennosides, SHELTER 8.6 MG Oral Capsule JEFF ([facility]) Ergocalciferol 42517 UNT Oral Capsule Vi tamin D2 1,250 mcg (50,000 unit) capsule Vitamin D2 1,250 mcg (50,000 unit) capsule completed ergocalciferol 1.25 MG Oral Capsule JEFF ([facility]) Amitriptyline Hydrochloride 50 MG Oral Tablet amitript yline 50 mg tablet amitriptyline 50 mg tablet completed amitriptyline hydrochloride 50 MG Oral Tablet JEFF ([facility]) Steglatro 5 mg tablet [id number] completed ertugliflozin 5 MG Oral Tablet [Steglatro] JEFF ([facility]) Amitriptyline Hydrochloride 50 MG Oral Tablet amitript yline 50 mg tablet amitriptyline 50 mg tablet completed amitriptyline hydrochloride 50 MG Oral Tablet JEFF ([facility]) Clindamycin 150 MG Oral Capsule clindamycin HCl 150 mg capsule clindamycin HCl 150 mg capsule completed clindam ycin 150 MG Oral Capsule SULLIVAN ([facility]) sennosides, SHELTER 8.6 MG Oral Tablet [Senna-Time] senna 8.6 mg tablet senna 8.6 mg tablet completed sennosi azam, SHELTER 8.6 MG Oral Tablet [Senna-Time] JEFF ([facility]) sennosides 8.6 mg-docusate sodium 50 mg capsule Take 2 capsules by oral route at bedtime. [id number] 2 capsule(s) completed docusate sodium 50 MG / sennosides, SHELTER 8.6 MG Oral Capsule SULLIVAN ([facility]) sennosides 8.6 mg-docusate sodium 50 mg capsule Take 2 capsules by oral route at bedtime. [id number] 2 capsule(s) completed docusate sodium 50 MG / sennosides, SHELTER 8.6 MG Oral Capsule SULLIVAN ([facility]) lamotrigine 100 MG Oral Tablet lamotrigi ne 100 mg tablet TAKE ONE TABLET BY MOUTH ONCE DAILY lamotrigine 100 mg tablet TAKE ONE TABLET BY MOUTH ONC E DAILY completed lamotrigine 10 0 MG Oral Tablet SULLIVAN ([facility]) Propranolol Hydrochloride 20 MG Oral Tablet propranolo l 20 mg tablet propranolol 20 mg tablet completed propranolol hydrochloride 20 MG Oral Tablet JEFF ([facility]) sennosides, SHELTER 8.6 MG Oral Tablet [Senna-Time] senna 8.6 mg tablet senna 8.6 mg tablet completed sennosi azam, SHELTER 8.6 MG Oral Tablet [Senna-Time] JEFF ([facility]) Isopropyl Alcohol 0.7 ML/ML Medicated Pad Alcohol Prep Pads Alco hol Prep Pads completed isopropyl alco hol 0.7 ML/ML Medicated Pad SULLIVAN ([facility]) ziprasidone 60 MG Oral Capsule ziprasidone 60 mg capsu le ziprasidone 60 mg capsule completed ziprasidone 60 MG Oral Capsule SULLIVAN ([facility]) Ketoconazole 20 MG/ML Medicated Shampoo ketoconazole 2 % shampoo ketoconazole 2 % shampoo completed ketoconazole 20 MG/ML Medicated Shampoo JEFF ([facility]) ziprasidone 60 MG Oral Capsule ziprasidone 60 mg capsu le ziprasidone 60 mg capsule completed ziprasidone 60 MG Oral Capsule SULLIVAN ([facility]) Mirtazapine 15 MG Oral Tablet mirtazapine 15 mg tablet derrick zapine 15 mg tablet completed mirtazapine 15 MG Oral Tablet JEFF ([facility]) benztropine mesylate 0.5 MG Oral Tablet benztropine 0. 5 mg tablet benztropine 0.5 mg tablet completed benztrop ine mesylate 0.5 MG Oral Tablet SULLIVAN ([facility]) OneTouch Delica Plus Lancet 33 gauge [id number] completed OneTouch Delica Plus Lancet 33 gauge JEFF ([facility]) Triamcinolone Acetonide 1 MG/ML Topical Cream triamcinolone acetonide 0.1 % topical cream triamcinolone acetonide 0.1 % topical cream completed triamcinolone acetonide 1 MG/ML Topical Cream SULLIVAN ([facility]) 0.5 ML dulaglutide 1.5 MG/ML Auto-Inject or [Trulicity] Trulicity 0.75 mg/0.5 mL subcutaneous pen injector Trulicity 0.75 mg/0.5 mL subcutaneous pen injector completed 0.5 ML dulaglu tide 1.5 MG/ML Auto-Injector [Trulicity] JEFF ([facility]) Triamcinolone Acetonide 1 MG/ML Topical Cream triamcinolone acetonide 0.1 % topical cream triamcinolone acetonide 0.1 % topical cream completed triamcinolone acetonide 1 MG/ML Topical Cream SULLIVAN ([facility]) buspirone hydrochloride 7.5 MG Oral Tablet buspirone 7 .5 mg tablet buspirone 7.5 mg tablet completed buspirone h ydrochloride 7.5 MG Oral Tablet JEFF ([facility]) lamotrigine 100 MG Oral Tablet lamotrigi ne 100 mg tablet TAKE ONE TABLET BY MOUTH ONCE DAILY lamotrigine 100 mg tablet TAKE ONE TABLET BY MOUTH ONC E DAILY completed lamotrigine 10 0 MG Oral Tablet SULLIVAN ([facility]) buspirone hydrochloride 7.5 MG Oral Tablet buspirone 7 .5 mg tablet buspirone 7.5 mg tablet completed buspirone h ydrochloride 7.5 MG Oral Tablet SULLIVAN ([facility]) Amitriptyline Hydrochloride 75 MG Oral Tablet amitript yline 75 mg tablet amitriptyline 75 mg tablet completed amitriptyline hydrochloride 75 MG Oral Tablet SULLIVAN ([facility]) Ketoconazole 20 MG/ML Medicated Shampoo ketoconazole 2 % shampoo ketoconazole 2 % shampoo completed ketoconazole 20 MG/ML Medicated Shampoo SULLIVAN ([facility]) benztropine mesylate 0.5 MG Oral Tablet benztropine 0. 5 mg tablet benztropine 0.5 mg tablet completed benztrop ine mesylate 0.5 MG Oral Tablet SULLIVAN ([facility]) Trazodone Hydrochloride 50 MG Oral Table t trazodone 50 mg tablet TAKE ONE TABLET BY MOUTH EVERY DAY AT BEDTIME trazodone 50 mg tablet TAKE ONE TABLET B Y MOUTH EVERY DAY AT BEDTIME completed trazodone hydrochloride 50 MG Oral Tablet SULLIVAN ([facility]) buspirone hydrochloride 10 MG Oral Tablet buspirone 10 mg tablet buspirone 10 mg tablet completed buspirone hydr ochloride 10 MG Oral Tablet SULLIVAN ([facility]) Ketoconazole 20 MG/ML Medicated Shampoo ketoconazole 2 % shampoo ketoconazole 2 % shampoo completed ketoconazole 20 MG/ML Medicated Shampoo SULLIVAN ([facility]) Cephalexin 500 MG Oral Capsule cephalexin 500 mg capsu le cephalexin 500 mg capsule completed cephalexin 500 MG Oral Capsule SULLIVAN ([facility]) buspirone hydrochloride 7.5 MG Oral Tablet buspirone 7 .5 mg tablet buspirone 7.5 mg tablet completed buspirone h ydrochloride 7.5 MG Oral Tablet SULLIVAN ([facility]) ziprasidone 60 MG Oral Capsule ziprasidone 60 mg capsu le ziprasidone 60 mg capsule completed ziprasidone 60 MG Oral Capsule JEFF ([facility]) Amitriptyline Hydrochloride 75 MG Oral Tablet amitript yline 75 mg tablet amitriptyline 75 mg tablet completed amitriptyline hydrochloride 75 MG Oral Tablet JEFF ([facility]) Clindamycin 150 MG Oral Capsule clindamycin HCl 150 mg capsule clindamycin HCl 150 mg capsule completed clindam ycin 150 MG Oral Capsule JEFF ([facility]) cefdinir 300 MG Oral Capsule cefdinir 300 mg capsule cefdinir 30 0 mg capsule completed cefdinir 300 M G Oral Capsule JEFF ([facility]) benzonatate 200 MG Oral Capsule benzonatate 200 mg cap k[place] benzonatate 200 mg capsule completed benzonatate 20 0 MG Oral Capsule SULLIVAN ([facility]) cefdinir 300 MG Oral Capsule cefdinir 300 mg capsule cefdinir 30 0 mg capsule completed cefdinir 300 M G Oral Capsule SULLIVAN ([facility]) Isopropyl Alcohol 0.7 ML/ML Medicated Pad Alcohol Prep Pads Alco hol Prep Pads completed isopropyl alco hol 0.7 ML/ML Medicated Pad JEFF ([facility]) lamotrigine 100 MG Oral Tablet lamotrigi ne 100 mg tablet TAKE ONE TABLET BY MOUTH ONCE DAILY lamotrigine 100 mg tablet TAKE ONE TABLET BY MOUTH ONC E DAILY completed lamotrigine 10 0 MG Oral Tablet SULLIVAN ([facility]) Triamcinolone Acetonide 1 MG/ML Topical Cream triamcinolone acetonide 0.1 % topical cream triamcinolone acetonide 0.1 % topical cream completed triamcinolone acetonide 1 MG/ML Topical Cream SULLIVAN ([facility]) Propranolol Hydrochloride 20 MG Oral Tablet propranolo l 20 mg tablet propranolol 20 mg tablet completed propranolol hydrochloride 20 MG Oral Tablet JEFF ([facility]) Ergocalciferol 47537 UNT Oral Capsule Vi tamin D2 1,250 mcg (50,000 unit) capsule Vitamin D2 1,250 mcg (50,000 unit) capsule completed ergocalciferol 1.25 MG Oral Capsule JEFF ([facility]) sennosides 8.6 mg-docusate sodium 50 mg capsule Take 2 capsules by oral route at bedtime. [id number] 2 capsule(s) completed docusate sodium 50 MG / sennosides, SHELTER 8.6 MG Oral Capsule JEFF ([facility]) Ketoconazole 20 MG/ML Medicated Shampoo ketoconazole 2 % shampoo ketoconazole 2 % shampoo completed ketoconazole 20 MG/ML Medicated Shampoo JEFF ([facility]) Mirtazapine 15 MG Oral Tablet mirtazapine 15 mg tablet derrick zapine 15 mg tablet completed mirtazapine 15 MG Oral Tablet JEFF ([facility]) Propranolol Hydrochloride 20 MG Oral Tablet propranolo l 20 mg tablet propranolol 20 mg tablet completed propranolol hydrochloride 20 MG Oral Tablet JEFF ([facility]) Prazosin 1 MG Oral Capsule prazosin 1 mg capsule prazosin 1 mg capsule completed prazosin 1 MG Oral Capsul e SULLIVAN ([facility]) Amitriptyline Hydrochloride 50 MG Oral Tablet amitript yline 50 mg tablet amitriptyline 50 mg tablet completed amitriptyline hydrochloride 50 MG Oral Tablet JEFF ([facility]) Steglatro 5 mg tablet [id number] completed ertugliflozin 5 MG Oral Tablet [Steglatro] JEFF ([facility]) Steglatro 5 mg tablet [id number] completed ertugliflozin 5 MG Oral Tablet [Steglatro] JEFF ([facility]) Mirtazapine 15 MG Oral Tablet mirtazapine 15 mg tablet derrick zapine 15 mg tablet completed mirtazapine 15 MG Oral Tablet JEFF ([facility]) Clonazepam 1 MG Oral Tablet clonazepam 1 mg tablet clonazepam 1 mg ta blet completed clonazepam 1 MG Oral Tablet JEFF ([facility]) Amitriptyline Hydrochloride 75 MG Oral Tablet amitript yline 75 mg tablet amitriptyline 75 mg tablet completed amitriptyline hydrochloride 75 MG Oral Tablet JEFF ([facility]) Clonazepam 1 MG Oral Tablet clonazepam 1 mg tablet clonazepam 1 mg ta blet completed clonazepam 1 MG Oral Tablet JEFF ([facility]) benztropine mesylate 0.5 MG Oral Tablet benztropine 0. 5 mg tablet benztropine 0.5 mg tablet completed benztrop ine mesylate 0.5 MG Oral Tablet JEFF ([facility]) Mirtazapine 45 MG Oral Tablet mirtazapine 45 mg tablet derrick zapine 45 mg tablet completed mirtazapine 45 MG Oral Tablet SULLIVAN ([facility]) OneTouch Delica Plus Lancet 33 gauge [id number] completed OneTouch Delica Plus Lancet 33 gauge JEFF ([facility]) Amitriptyline Hydrochloride 75 MG Oral Tablet amitript yline 75 mg tablet amitriptyline 75 mg tablet completed amitriptyline hydrochloride 75 MG Oral Tablet JEFF ([facility]) Amitriptyline Hydrochloride 50 MG Oral Tablet amitript yline 50 mg tablet amitriptyline 50 mg tablet completed amitriptyline hydrochloride 50 MG Oral Tablet SULLIVAN ([facility]) 0.5 ML dulaglutide 1.5 MG/ML Auto-Inject or [Trulicity] Trulicity 0.75 mg/0.5 mL subcutaneous pen injector Trulicity 0.75 mg/0.5 mL subcutaneous pen injector completed 0.5 ML dulaglu tide 1.5 MG/ML Auto-Injector [Trulicity] SULLIVAN ([facility]) Ketoconazole 20 MG/ML Medicated Shampoo ketoconazole 2 % shampoo ketoconazole 2 % shampoo completed ketoconazole 20 MG/ML Medicated Shampoo SULLIVAN ([facility]) 0.5 ML dulaglutide 1.5 MG/ML Auto-Inject or [Trulicity] Trulicity 0.75 mg/0.5 mL subcutaneous pen injector Trulicity 0.75 mg/0.5 mL subcutaneous pen injector completed 0.5 ML dulaglu tide 1.5 MG/ML Auto-Injector [Trulicity] SULLIVAN ([facility]) Simvastatin 10 MG Oral Tablet simvastati n 10 mg tablet TAKE ONE TABLET BY MOUTH EVERY DAY simvastatin 10 mg tablet TAKE ONE TABLET BY MOUTH EVERY DAY completed simvastatin 10 MG Oral Table t SULLIVAN ([facility]) sennosides, SHELTER 8.6 MG Oral Tablet [Senna-Time] senna 8.6 mg tablet senna 8.6 mg tablet completed sennosi azam, SHELTER 8.6 MG Oral Tablet [Senna-Time] JEFF ([facility]) ziprasidone 60 MG Oral Capsule ziprasidone 60 mg capsu le ziprasidone 60 mg capsule completed ziprasidone 60 MG Oral Capsule JEFF ([facility]) Docusate Sodium 50 MG / sennosides, SHELTER 8.6 MG Oral Tablet sennosides 8.6 mg- docusate sodium 50 mg tablet Take 2 tablets by oral route at bedtime. sennosides 8.6 mg-docusate sodium 50 mg tablet Take 2 tablets by oral route at bedtime. 2 completed docusate sodiu m 50 MG / sennosides, SHELTER 8.6 MG Oral Tablet JEFF ([facility]) benztropine mesylate 0.5 MG Oral Tablet benztropine 0. 5 mg tablet benztropine 0.5 mg tablet completed benztrop ine mesylate 0.5 MG Oral Tablet JEFF ([facility]) Clonidine Hydrochloride 0.2 MG Oral Tablet clonidine H Cl 0.2 mg tablet clonidine HCl 0.2 mg tablet completed clonidine hydrochloride 0.2 MG Oral Tablet JEFF ([facility]) Amitriptyline Hydrochloride 50 MG Oral Tablet amitript yline 50 mg tablet amitriptyline 50 mg tablet completed amitriptyline hydrochloride 50 MG Oral Tablet JEFF ([facility]) Ergocalciferol [id number] UNT Oral Capsule Vi tamin D2 1,250 mcg (50,000 unit) capsule Vitamin D2 1,250 mcg (50,000 unit) capsule completed ergocalciferol 1.25 MG Oral Capsule JEFF ([facility]) Azithromycin 250 MG Oral Tablet azithromycin 250 mg ta blet azithromycin 250 mg tablet completed azithromycin 25 0 MG Oral Tablet JEFF ([facility]) Clonidine Hydrochloride 0.2 MG Oral Tablet clonidine H Cl 0.2 mg tablet clonidine HCl 0.2 mg tablet completed clonidine hydrochloride 0.2 MG Oral Tablet JEFF ([facility]) OneTouch Verio test strips USE UP TO TWO TIMES A DAY DIRECTED [id number] completed OneTouch Verio test strip s JEFF ([facility]) buspirone hydrochloride 10 MG Oral Tablet buspirone 10 mg tablet buspirone 10 mg tablet completed buspirone hydr ochloride 10 MG Oral Tablet JEFF ([facility]) Azithromycin 250 MG Oral Tablet azithromycin 250 mg ta blet azithromycin 250 mg tablet completed azithromycin 25 0 MG Oral Tablet JEFF ([facility]) Triamcinolone Acetonide 1 MG/ML Topical Cream triamcinolone acetonide 0.1 % topical cream triamcinolone acetonide 0.1 % topical cream completed triamcinolone acetonide 1 MG/ML Topical Cream SULLIVAN ([facility]) lamotrigine 25 MG Oral Tablet lamotrigine 25 mg tablet lamot rigine 25 mg tablet completed lamotrigine 25 MG Oral Tablet JEFF ([facility]) Mirtazapine 45 MG Oral Tablet mirtazapine 45 mg tablet derrick zapine 45 mg tablet completed mirtazapine 45 MG Oral Tablet SULLIVAN ([facility]) buspirone hydrochloride 10 MG Oral Tablet buspirone 10 mg tablet buspirone 10 mg tablet completed buspirone hydr ochloride 10 MG Oral Tablet SULLIVAN ([facility]) Mirtazapine 45 MG Oral Tablet mirtazapine 45 mg tablet derrick zapine 45 mg tablet completed mirtazapine 45 MG Oral Tablet SULLIVAN ([facility]) sennosides 8.6 mg-docusate sodium 50 mg capsule Take 2 capsules by oral route at bedtime. [id number] 2 capsule(s) completed docusate sodium 50 MG / sennosides, SHELTER 8.6 MG Oral Capsule SULLIVAN ([facility]) Ketoconazole 20 MG/ML Medicated Shampoo ketoconazole 2 % shampoo ketoconazole 2 % shampoo completed ketoconazole 20 MG/ML Medicated Shampoo SULLIVAN ([facility]) Azithromycin 250 MG Oral Tablet azithromycin 250 mg ta blet azithromycin 250 mg tablet completed azithromycin 25 0 MG Oral Tablet JEFF ([facility]) Famotidine 20 MG Oral Tablet famotidine 20 mg tablet famotidine 20 mg tablet completed famotidine 20 MG Oral Tablet JEFF ([facility]) ziprasidone 60 MG Oral Capsule ziprasidone 60 mg capsu le ziprasidone 60 mg capsule completed ziprasidone 60 MG Oral Capsule SULLIVAN ([facility]) Amitriptyline Hydrochloride 75 MG Oral Tablet amitript yline 75 mg tablet amitriptyline 75 mg tablet completed amitriptyline hydrochloride 75 MG Oral Tablet JEFF ([facility]) Mirtazapine 45 MG Oral Tablet mirtazapine 45 mg tablet derrick zapine 45 mg tablet completed mirtazapine 45 MG Oral Tablet JEFF ([facility]) Propranolol Hydrochloride 20 MG Oral Tablet propranolo l 20 mg tablet propranolol 20 mg tablet completed propranolol hydrochloride 20 MG Oral Tablet JEFF ([facility]) buspirone hydrochloride 15 MG Oral Table t buspirone 15 mg tablet TAKE ONE TABLET BY MOUTH THREE TIMES A DAY buspirone 15 mg tablet TAKE ONE TABLET B Y MOUTH THREE TIMES A DAY completed buspirone hydrochloride 15 MG Oral Tablet JEFF ([facility]) Propranolol Hydrochloride 20 MG Oral Tablet propranolo l 20 mg tablet propranolol 20 mg tablet completed propranolol hydrochloride 20 MG Oral Tablet JEFF ([facility]) Famotidine 20 MG Oral Tablet famotidine 20 mg tablet famotidine 20 mg tablet completed famotidine 20 MG Oral Tablet JEFF ([facility]) benztropine mesylate 0.5 MG Oral Tablet benztropine 0. 5 mg tablet benztropine 0.5 mg tablet completed benztrop ine mesylate 0.5 MG Oral Tablet JEFF ([facility]) ziprasidone 60 MG Oral Capsule ziprasidone 60 mg capsu le ziprasidone 60 mg capsule completed ziprasidone 60 MG Oral Capsule JEFF ([facility]) Triamcinolone Acetonide 1 MG/ML Topical Cream triamcinolone acetonide 0.1 % topical cream triamcinolone acetonide 0.1 % topical cream completed triamcinolone acetonide 1 MG/ML Topical Cream JEFF ([facility]) Famotidine 20 MG Oral Tablet famotidine 20 mg tablet famotidine 20 mg tablet completed famotidine 20 MG Oral Tablet JEFF ([facility]) cefdinir 300 MG Oral Capsule cefdinir 300 mg capsule cefdinir 30 0 mg capsule completed cefdinir 300 M G Oral Capsule JEFF ([facility]) OneTouch Delica Plus Lancet 33 gauge [id number] completed OneTouch Delica Plus Lancet 33 gauge JEFF ([facility]) buspirone hydrochloride 10 MG Oral Tablet buspirone 10 mg tablet buspirone 10 mg tablet completed buspirone hydr ochloride 10 MG Oral Tablet JEFF ([facility]) Amitriptyline Hydrochloride 50 MG Oral Tablet amitript yline 50 mg tablet amitriptyline 50 mg tablet completed amitriptyline hydrochloride 50 MG Oral Tablet SULLIVAN ([facility]) lamotrigine 25 MG Oral Tablet lamotrigine 25 mg tablet lamot rigine 25 mg tablet completed lamotrigine 25 MG Oral Tablet SULLIVAN ([facility]) Clonazepam 0.5 MG Disintegrating Oral Ta blet clonazepam 0.5 mg disintegrating tablet clonazepam 0.5 mg disintegrating tablet completed clonazepam 0.5 MG Disintegrating Oral Tablet SULLIVAN ([facility]) lamotrigine 100 MG Oral Tablet lamotrigi ne 100 mg tablet TAKE ONE TABLET BY MOUTH ONCE DAILY lamotrigine 100 mg tablet TAKE ONE TABLET BY MOUTH ONC E DAILY completed lamotrigine 10 0 MG Oral Tablet SULLIVAN ([facility]) Clonazepam 0.5 MG Oral Tablet clonazepam 0.5 mg tablet TAKE ONE TABLET BY MOUTH EVERY DAY MAXIMUM DAILY DOSE ONE TABLET clonazepam 0.5 mg tablet TAKE ONE TABLET BY MOUTH EVERY DAY MAXIMUM DAILY DOSE ONE TABLET completed clonazepam 0.5 MG Oral Tablet AT [facility] ([facility]) Clonidine Hydrochloride 0.2 MG Oral Tablet clonidine H Cl 0.2 mg tablet clonidine HCl 0.2 mg tablet completed clonidine hydrochloride 0.2 MG Oral Tablet SULLIVAN ([facility]) Ergocalciferol 33632 UNT Oral Capsule Vi tamin D2 1,250 mcg (50,000 unit) capsule Vitamin D2 1,250 mcg (50,000 unit) capsule completed ergocalciferol 1.25 MG Oral Capsule SULLIVAN ([facility]) benztropine mesylate 0.5 MG Oral Tablet benztropine 0. 5 mg tablet benztropine 0.5 mg tablet completed benztrop ine mesylate 0.5 MG Oral Tablet SULLIVAN ([facility]) Docusate Sodium 50 MG / sennosides, SHELTER 8.6 MG Oral Tablet sennosides 8.6 mg- docusate sodium 50 mg tablet Take 2 tablets by oral route at bedtime. sennosides 8.6 mg-docusate sodium 50 mg tablet Take 2 tablets by oral route at bedtime. 2 completed docusate sodiu m 50 MG / sennosides, SHELTER 8.6 MG Oral Tablet SULLIVAN ([facility]) OneTouch Delica Plus Lancet 33 gauge [id number] completed OneTouch Delica Plus Lancet 33 gauge SULLIVAN ([facility]) Prazosin 1 MG Oral Capsule prazosin 1 mg capsule prazosin 1 mg capsule completed prazosin 1 MG Oral Capsul e SULLIVAN ([facility]) Clindamycin 150 MG Oral Capsule clindamycin HCl 150 mg capsule clindamycin HCl 150 mg capsule completed clindam ycin 150 MG Oral Capsule SULLIVAN ([facility]) ziprasidone 60 MG Oral Capsule ziprasidone 60 mg capsu le ziprasidone 60 mg capsule completed ziprasidone 60 MG Oral Capsule SULLIVAN ([facility]) Docusate Sodium 100 MG Oral Capsule [DOK] DOK 100 mg capsule DOK 100 mg capsule completed docusate sodiu m 100 MG Oral Capsule [DOK] SULLIVAN ([facility]) Ergocalciferol [id number] UNT Oral Capsule Vi tamin D2 1,250 mcg (50,000 unit) capsule Vitamin D2 1,250 mcg (50,000 unit) capsule completed ergocalciferol 1.25 MG Oral Capsule SULLIVAN ([facility]) Triamcinolone Acetonide 1 MG/ML Topical Cream triamcinolone acetonide 0.1 % topical cream triamcinolone acetonide 0.1 % topical cream completed triamcinolone acetonide 1 MG/ML Topical Cream SULLIVAN ([facility]) Ketoconazole 20 MG/ML Medicated Shampoo ketoconazole 2 % shampoo ketoconazole 2 % shampoo completed ketoconazole 20 MG/ML Medicated Shampoo SULLIVAN ([facility]) Mirtazapine 15 MG Oral Tablet mirtazapine 15 mg tablet derrick zapine 15 mg tablet completed mirtazapine 15 MG Oral Tablet SULLIVAN ([facility]) lamotrigine 25 MG Oral Tablet lamotrigine 25 mg tablet lamot rigine 25 mg tablet completed lamotrigine 25 MG Oral Tablet SULLIVAN ([facility]) Clindamycin 150 MG Oral Capsule clindamycin HCl 150 mg capsule clindamycin HCl 150 mg capsule completed clindam ycin 150 MG Oral Capsule JEFF ([facility]) Amitriptyline Hydrochloride 75 MG Oral Tablet amitript yline 75 mg tablet amitriptyline 75 mg tablet completed amitriptyline hydrochloride 75 MG Oral Tablet JEFF ([facility]) Ketoconazole 20 MG/ML Medicated Shampoo ketoconazole 2 % shampoo ketoconazole 2 % shampoo completed ketoconazole 20 MG/ML Medicated Shampoo SULLIVAN ([facility]) Clonazepam 1 MG Oral Tablet clonazepam 1 mg tablet clonazepam 1 mg ta blet completed clonazepam 1 MG Oral Tablet JEFF ([facility]) Isopropyl Alcohol 0.7 ML/ML Medicated Pad Alcohol Prep Pads Alco hol Prep Pads completed isopropyl alco hol 0.7 ML/ML Medicated Pad JEFF ([facility]) Clonazepam 1 MG Oral Tablet clonazepam 1 mg tablet clonazepam 1 mg ta blet completed clonazepam 1 MG Oral Tablet SULLIVAN ([facility]) Mirtazapine 15 MG Oral Tablet mirtazapine 15 mg tablet derrick zapine 15 mg tablet completed mirtazapine 15 MG Oral Tablet SULLIVAN ([facility]) Mirtazapine 15 MG Oral Tablet mirtazapine 15 mg tablet derrick zapine 15 mg tablet completed mirtazapine 15 MG Oral Tablet SULLIVAN ([facility]) Clonidine Hydrochloride 0.2 MG Oral Tablet clonidine H Cl 0.2 mg tablet clonidine HCl 0.2 mg tablet completed clonidine hydrochloride 0.2 MG Oral Tablet SULLIVAN ([facility]) Famotidine 20 MG Oral Tablet famotidine 20 mg tablet famotidine 20 mg tablet completed famotidine 20 MG Oral Tablet SULLIVAN ([facility]) buspirone hydrochloride 15 MG Oral Table t buspirone 15 mg tablet TAKE ONE TABLET BY MOUTH THREE TIMES A DAY buspirone 15 mg tablet TAKE ONE TABLET B Y MOUTH THREE TIMES A DAY completed buspirone hydrochloride 15 MG Oral Tablet SULLIVAN ([facility]) Ergocalciferol [id number] UNT Oral Capsule Vi tamin D2 1,250 mcg (50,000 unit) capsule Vitamin D2 1,250 mcg (50,000 unit) capsule completed ergocalciferol 1.25 MG Oral Capsule SULLIVAN ([facility]) OneTouch Verio test strips USE DIRECTED UP TO TWO TIMES A DAY [id number] completed OneTouch Verio test strip s SULLIVAN ([facility]) benztropine mesylate 0.5 MG Oral Tablet benztropine 0. 5 mg tablet benztropine 0.5 mg tablet completed benztrop ine mesylate 0.5 MG Oral Tablet SULLIVAN ([facility]) sennosides 8.6 mg-docusate sodium 50 mg capsule Take 2 capsules by oral route at bedtime. [id number] 2 capsule(s) completed docusate sodium 50 MG / sennosides, SHELTER 8.6 MG Oral Capsule SULLIVAN ([facility]) 0.5 ML dulaglutide 1.5 MG/ML Auto-Inject or [Trulicity] Trulicity 0.75 mg/0.5 mL subcutaneous pen injector Trulicity 0.75 mg/0.5 mL subcutaneous pen injector completed 0.5 ML dulaglu tide 1.5 MG/ML Auto-Injector [Trulicity] SULLIVAN ([facility]) Triamcinolone Acetonide 1 MG/ML Topical Cream triamcinolone acetonide 0.1 % topical cream triamcinolone acetonide 0.1 % topical cream completed triamcinolone acetonide 1 MG/ML Topical Cream SULLIVAN ([facility]) benztropine mesylate 0.5 MG Oral Tablet benztropine 0. 5 mg tablet benztropine 0.5 mg tablet completed benztrop ine mesylate 0.5 MG Oral Tablet JEFF ([facility]) benzonatate 200 MG Oral Capsule benzonatate 200 mg cap ken[place] benzonatate 200 mg capsule completed benzonatate 20 0 MG Oral Capsule JEFF ([facility]) Propranolol Hydrochloride 20 MG Oral Tablet propranolo l 20 mg tablet propranolol 20 mg tablet completed propranolol hydrochloride 20 MG Oral Tablet JEFF ([facility]) OneTouch Verio test strips USE UP TO TWO TIMES A DAY DIRECTED [id number] completed OneTouch Verio test strip s JEFF ([facility]) benzonatate 200 MG Oral Capsule benzonatate 200 mg cap ken[place] benzonatate 200 mg capsule completed benzonatate 20 0 MG Oral Capsule JEFF ([facility]) Prazosin 1 MG Oral Capsule prazosin 1 mg capsule prazosin 1 mg capsule completed prazosin 1 MG Oral Capsul e JEFF ([facility]) benzonatate 200 MG Oral Capsule benzonatate 200 mg cap ken[place] benzonatate 200 mg capsule completed benzonatate 20 0 MG Oral Capsule JEFF ([facility]) Mirtazapine 45 MG Oral Tablet mirtazapine 45 mg tablet derrick zapine 45 mg tablet completed mirtazapine 45 MG Oral Tablet JEFF ([facility]) buspirone hydrochloride 7.5 MG Oral Tablet buspirone 7 .5 mg tablet buspirone 7.5 mg tablet completed buspirone h ydrochloride 7.5 MG Oral Tablet JEFF ([facility]) Amitriptyline Hydrochloride 50 MG Oral Tablet amitript yline 50 mg tablet amitriptyline 50 mg tablet completed amitriptyline hydrochloride 50 MG Oral Tablet SULLIVAN ([facility]) ziprasidone 60 MG Oral Capsule ziprasidone 60 mg capsu le ziprasidone 60 mg capsule completed ziprasidone 60 MG Oral Capsule JEFF ([facility]) Clindamycin 150 MG Oral Capsule clindamycin HCl 150 mg capsule clindamycin HCl 150 mg capsule completed clindam ycin 150 MG Oral Capsule JEFF ([facility]) Mirtazapine 45 MG Oral Tablet mirtazapine 45 mg tablet derrick zapine 45 mg tablet completed mirtazapine 45 MG Oral Tablet SULLIVAN ([facility]) buspirone hydrochloride 7.5 MG Oral Tablet buspirone 7 .5 mg tablet buspirone 7.5 mg tablet completed buspirone h ydrochloride 7.5 MG Oral Tablet JEFF ([facility]) benzonatate 200 MG Oral Capsule benzonatate 200 mg cap kenya benzonatate 200 mg capsule completed benzonatate 20 0 MG Oral Capsule SULLIVAN ([facility]) Famotidine 20 MG Oral Tablet famotidine 20 mg tablet famotidine 20 mg tablet completed famotidine 20 MG Oral Tablet JEFF ([facility]) Ergocalciferol [id number] UNT Oral Capsule Vi tamin D2 1,250 mcg (50,000 unit) capsule Vitamin D2 1,250 mcg (50,000 unit) capsule completed ergocalciferol 1.25 MG Oral Capsule JEFF ([facility]) 0.5 ML dulaglutide 1.5 MG/ML Auto-Inject or [Trulicity] Trulicity 0.75 mg/0.5 mL subcutaneous pen injector Trulicity 0.75 mg/0.5 mL subcutaneous pen injector completed 0.5 ML dulaglu tide 1.5 MG/ML Auto-Injector [Trulicity] JEFF ([facility]) buspirone hydrochloride 7.5 MG Oral Tablet buspirone 7 .5 mg tablet buspirone 7.5 mg tablet completed buspirone h ydrochloride 7.5 MG Oral Tablet JEFF ([facility]) cefdinir 300 MG Oral Capsule cefdinir 300 mg capsule cefdinir 30 0 mg capsule completed cefdinir 300 M G Oral Capsule SULLIVAN ([facility]) Amitriptyline Hydrochloride 50 MG Oral Tablet amitript yline 50 mg tablet amitriptyline 50 mg tablet completed amitriptyline hydrochloride 50 MG Oral Tablet JEFF ([facility]) Mirtazapine 15 MG Oral Tablet mirtazapine 15 mg tablet derrick zapine 15 mg tablet completed mirtazapine 15 MG Oral Tablet JEFF ([facility]) Clonidine Hydrochloride 0.2 MG Oral Tablet clonidine H Cl 0.2 mg tablet clonidine HCl 0.2 mg tablet completed clonidine hydrochloride 0.2 MG Oral Tablet JEFF ([facility]) Clonazepam 1 MG Oral Tablet clonazepam 1 mg tablet clonazepam 1 mg ta blet completed clonazepam 1 MG Oral Tablet SULLIVAN ([facility]) sennosides 8.6 mg-docusate sodium 50 mg capsule Take 2 capsules by oral route at bedtime. [id number] 2 capsule(s) completed docusate sodium 50 MG / sennosides, SHELTER 8.6 MG Oral Capsule JEFF ([facility]) Azithromycin 250 MG Oral Tablet azithromycin 250 mg ta blet azithromycin 250 mg tablet completed azithromycin 25 0 MG Oral Tablet SULLIVAN ([facility]) cefdinir 300 MG Oral Capsule cefdinir 300 mg capsule cefdinir 30 0 mg capsule completed cefdinir 300 M G Oral Capsule JEFF ([facility]) Docusate Sodium 50 MG / sennosides, SHELTER 8.6 MG Oral Tablet sennosides 8.6 mg- docusate sodium 50 mg tablet Take 2 tablets by oral route at bedtime. sennosides 8.6 mg-docusate sodium 50 mg tablet Take 2 tablets by oral route at bedtime. 2 completed docusate sodiu m 50 MG / sennosides, SHELTER 8.6 MG Oral Tablet JEFF ([facility]) Clonazepam 1 MG Oral Tablet clonazepam 1 mg tablet clonazepam 1 mg ta blet completed clonazepam 1 MG Oral Tablet JEFF ([facility]) Clonazepam 1 MG Oral Tablet clonazepam 1 mg tablet clonazepam 1 mg ta blet completed clonazepam 1 MG Oral Tablet JEFF ([facility]) benztropine mesylate 0.5 MG Oral Tablet benztropine 0. 5 mg tablet benztropine 0.5 mg tablet completed benztrop ine mesylate 0.5 MG Oral Tablet JEFF ([facility]) ziprasidone 60 MG Oral Capsule [facility] mg capsule completed ziprasidone 60 MG Oral Capsule JEFF ([facility]) Amitriptyline Hydrochloride 75 MG Oral Tablet amitript yline 75 mg tablet amitriptyline 75 mg tablet completed amitriptyline hydrochloride 75 MG Oral Tablet JEFF ([facility]) Docusate Sodium 50 MG / sennosides, SHELTER 8.6 MG Oral Tablet sennosides 8.6 mg- docusate sodium 50 mg tablet Take 2 tablets by oral route at bedtime. sennosides 8.6 mg-docusate sodium 50 mg tablet Take 2 tablets by oral route at bedtime. 2 completed docusate sodiu m 50 MG / sennosides, SHELTER 8.6 MG Oral Tablet JEFF ([facility]) benztropine mesylate 0.5 MG Oral Tablet benztropine 0. 5 mg tablet benztropine 0.5 mg tablet completed benztrop ine mesylate 0.5 MG Oral Tablet JEFF ([facility]) Steglatro 5 mg tablet [id number] completed ertugliflozin 5 MG Oral Tablet [Steglatro] JEFF ([facility]) buspirone hydrochloride 10 MG Oral Tablet buspirone 10 mg tablet buspirone 10 mg tablet completed buspirone hydr ochloride 10 MG Oral Tablet JEFF ([facility]) OneTouch Delica Plus Lancet 33 gauge [id number] completed OneTouch Delica Plus Lancet 33 gauge JEFF ([facility]) Prazosin 1 MG Oral Capsule prazosin 1 mg capsule prazosin 1 mg capsule completed prazosin 1 MG Oral Capsul e JEFF ([facility]) Clonazepam 0.5 MG Disintegrating Oral Ta blet clonazepam 0.5 mg disintegrating tablet clonazepam 0.5 mg disintegrating tablet completed clonazepam 0.5 MG Disintegrating Oral Tablet JEFF ([facility]) Docusate Sodium 50 MG / sennosides, SHELTER 8.6 MG Oral Tablet sennosides 8.6 mg- docusate sodium 50 mg tablet Take 2 tablets by oral route at bedtime. sennosides 8.6 mg-docusate sodium 50 mg tablet Take 2 tablets by oral route at bedtime. 2 completed docusate sodiu m 50 MG / sennosides, SHELTER 8.6 MG Oral Tablet JEFF ([facility]) Docusate Sodium 50 MG / sennosides, SHELTER 8.6 MG Oral Tablet sennosides 8.6 mg- docusate sodium 50 mg tablet Take 2 tablets by oral route at bedtime. sennosides 8.6 mg-docusate sodium 50 mg tablet Take 2 tablets by oral route at bedtime. 2 completed docusate sodiu m 50 MG / sennosides, SHELTER 8.6 MG Oral Tablet JEFF ([facility]) Steglatro 5 mg tablet [id number] completed ertugliflozin 5 MG Oral Tablet [Steglatro] JEFF ([facility]) ziprasidone 60 MG Oral Capsule ziprasidone 60 mg capsu le ziprasidone 60 mg capsule completed ziprasidone 60 MG Oral Capsule JEFF ([facility]) Amitriptyline Hydrochloride 50 MG Oral Tablet amitript yline 50 mg tablet amitriptyline 50 mg tablet completed amitriptyline hydrochloride 50 MG Oral Tablet JEFF ([facility]) Prazosin 1 MG Oral Capsule prazosin 1 mg capsule prazosin 1 mg capsule completed prazosin 1 MG Oral Capsul e JEFF ([facility]) sennosides, SHELTER 8.6 MG Oral Tablet [Senna-Time] senna 8.6 mg tablet senna 8.6 mg tablet completed sennosi azam, SHELTER 8.6 MG Oral Tablet [Senna-Time] SULLIVAN ([facility]) 0.5 ML dulaglutide 1.5 MG/ML Auto-Inject or [Trulicity] Trulicity 0.75 mg/0.5 mL subcutaneous pen injector Trulicity 0.75 mg/0.5 mL subcutaneous pen injector completed 0.5 ML dulaglu tide 1.5 MG/ML Auto-Injector [Trulicity] SULLIVAN ([facility]) Mirtazapine 45 MG Oral Tablet mirtazapine 45 mg tablet derrick zapine 45 mg tablet completed mirtazapine 45 MG Oral Tablet SULLIVAN ([facility]) Docusate Sodium 50 MG / sennosides, SHELTER 8.6 MG Oral Tablet sennosides 8.6 mg- docusate sodium 50 mg tablet Take 2 tablets by oral route at bedtime. sennosides 8.6 mg-docusate sodium 50 mg tablet Take 2 tablets by oral route at bedtime. 2 completed docusate sodiu m 50 MG / sennosides, SHELTER 8.6 MG Oral Tablet SULLIVAN ([facility]) buspirone hydrochloride 10 MG Oral Tablet buspirone 10 mg tablet buspirone 10 mg tablet completed buspirone hydr ochloride 10 MG Oral Tablet SULLIVAN ([facility]) Mirtazapine 45 MG Oral Tablet mirtazapine 45 mg tablet derrick zapine 45 mg tablet completed mirtazapine 45 MG Oral Tablet JEFF ([facility]) Amitriptyline Hydrochloride 50 MG Oral Tablet amitript yline 50 mg tablet amitriptyline 50 mg tablet completed amitriptyline hydrochloride 50 MG Oral Tablet JEFF ([facility]) Clonazepam 1 MG Oral Tablet clonazepam 1 mg tablet clonazepam 1 mg ta blet completed clonazepam 1 MG Oral Tablet JEFF ([facility]) Ketoconazole 20 MG/ML Medicated Shampoo ketoconazole 2 % shampoo ketoconazole 2 % shampoo completed ketoconazole 20 MG/ML Medicated Shampoo JEFF ([facility]) OneTouch Verio test strips USE UP TO TWO TIMES A DAY DIRECTED [id number] completed OneTouch Verio test strip s JEFF ([facility]) Famotidine 20 MG Oral Tablet famotidine 20 mg tablet famotidine 20 mg tablet completed famotidine 20 MG Oral Tablet JEFF ([facility]) Clonazepam 1 MG Oral Tablet clonazepam 1 mg tablet clonazepam 1 mg ta blet completed clonazepam 1 MG Oral Tablet JEFF ([facility]) Azithromycin 250 MG Oral Tablet azithromycin 250 mg ta blet azithromycin 250 mg tablet completed azithromycin 25 0 MG Oral Tablet SULLIVAN ([facility]) Mirtazapine 45 MG Oral Tablet mirtazapine 45 mg tablet derrick zapine 45 mg tablet completed mirtazapine 45 MG Oral Tablet SULLIVAN ([facility]) Amitriptyline Hydrochloride 75 MG Oral Tablet amitript yline 75 mg tablet amitriptyline 75 mg tablet completed amitriptyline hydrochloride 75 MG Oral Tablet JEFF ([facility]) Ketoconazole 20 MG/ML Medicated Shampoo ketoconazole 2 % shampoo ketoconazole 2 % shampoo completed ketoconazole 20 MG/ML Medicated Shampoo SULLIVAN ([facility]) Clonazepam 1 MG Oral Tablet clonazepam 1 mg tablet clonazepam 1 mg ta blet completed clonazepam 1 MG Oral Tablet JEFF ([facility]) Triamcinolone Acetonide 1 MG/ML Topical Cream triamcinolone acetonide 0.1 % topical cream triamcinolone acetonide 0.1 % topical cream completed triamcinolone acetonide 1 MG/ML Topical Cream SULLIVAN ([facility]) Famotidine 20 MG Oral Tablet famotidine 20 mg tablet famotidine 20 mg tablet completed famotidine 20 MG Oral Tablet JEFF ([facility]) Steglatro 5 mg tablet [id number] completed ertugliflozin 5 MG Oral Tablet [Steglatro] JEFF ([facility]) Clonazepam 0.5 MG Oral Tablet clonazepam 0.5 mg tablet TAKE ONE TABLET BY MOUTH NEEDED FOR 3 DAYS THEN ONE HALF TABLET UNTIL FINISHED MAXIMUM DAILY DOSE ONE TABLET clonazepam 0.5 mg tablet TAKE ONE TABLET BY MOUTH NEEDED FOR 3 DAYS THEN ONE HALF TABLET UNTIL FINISHED MAXIMUM DAILY DOSE ONE TABLET completed clonazepam 0.5 MG Or al Tablet JEFF ([facility]) Mirtazapine 45 MG Oral Tablet mirtazapine 45 mg tablet derrick zapine 45 mg tablet completed mirtazapine 45 MG Oral Tablet SULLIVAN ([facility]) Ketoconazole 20 MG/ML Medicated Shampoo ketoconazole 2 % shampoo ketoconazole 2 % shampoo completed ketoconazole 20 MG/ML Medicated Shampoo JEFF ([facility]) Azithromycin 250 MG Oral Tablet azithromycin 250 mg ta blet azithromycin 250 mg tablet completed azithromycin 25 0 MG Oral Tablet JEFF ([facility]) cefdinir 300 MG Oral Capsule cefdinir 300 mg capsule cefdinir 30 0 mg capsule completed cefdinir 300 M G Oral Capsule SULLIVAN ([facility]) OneTouch Verio Flex Meter [id number] compl eted OneTouch Verio Flex Meter SULLIVAN ([facility]) Simvastatin 10 MG Oral Tablet simvastati n 10 mg tablet TAKE ONE TABLET BY MOUTH EVERY DAY simvastatin 10 mg tablet TAKE ONE TABLET BY MOUTH EVERY DAY completed simvastatin 10 MG Oral Table t SULLIVAN ([facility]) buspirone hydrochloride 7.5 MG Oral Tablet buspirone 7 .5 mg tablet buspirone 7.5 mg tablet completed buspirone h ydrochloride 7.5 MG Oral Tablet SULLIVAN ([facility]) Famotidine 20 MG Oral Tablet famotidine 20 mg tablet famotidine 20 mg tablet completed famotidine 20 MG Oral Tablet SULLIVAN ([facility]) buspirone hydrochloride 7.5 MG Oral Tablet buspirone 7 .5 mg tablet buspirone 7.5 mg tablet completed buspirone h ydrochloride 7.5 MG Oral Tablet JEFF ([facility]) buspirone hydrochloride 7.5 MG Oral Tablet buspirone 7 .5 mg tablet buspirone 7.5 mg tablet completed buspirone h ydrochloride 7.5 MG Oral Tablet SULLIVAN ([facility]) sennosides 8.6 mg-docusate sodium 50 mg capsule Take 2 capsules by oral route at bedtime. [id number] 2 capsule(s) completed docusate sodium 50 MG / sennosides, SHELTER 8.6 MG Oral Capsule JEFF ([facility]) cefdinir 300 MG Oral Capsule cefdinir 300 mg capsule cefdinir 30 0 mg capsule completed cefdinir 300 M G Oral Capsule JEFF ([facility]) Triamcinolone Acetonide 1 MG/ML Topical Cream triamcinolone acetonide 0.1 % topical cream triamcinolone acetonide 0.1 % topical cream completed triamcinolone acetonide 1 MG/ML Topical Cream SULLIVAN ([facility]) Docusate Sodium 100 MG Oral Capsule [DOK] DOK 100 mg capsule DOK 100 mg capsule completed docusate sodiu m 100 MG Oral Capsule [DOK] SULLIVAN ([facility]) benzonatate 200 MG Oral Capsule benzonatate 200 mg cap kenya benzonatate 200 mg capsule completed benzonatate 20 0 MG Oral Capsule SULLIVAN ([facility]) Simvastatin 10 MG Oral Tablet simvastati n 10 mg tablet TAKE ONE TABLET BY MOUTH EVERY DAY simvastatin 10 mg tablet TAKE ONE TABLET BY MOUTH EVERY DAY completed simvastatin 10 MG Oral Table t JEFF ([facility]) Clonazepam 1 MG Oral Tablet clonazepam 1 mg tablet clonazepam 1 mg ta blet completed clonazepam 1 MG Oral Tablet SULLIVAN ([facility]) Steglatro 5 mg tablet [id number] completed ertugliflozin 5 MG Oral Tablet [Steglatro] SULLIVAN ([facility]) Clonidine Hydrochloride 0.2 MG Oral Tablet clonidine H Cl 0.2 mg tablet clonidine HCl 0.2 mg tablet completed clonidine hydrochloride 0.2 MG Oral Tablet JEFF ([facility]) OneTouch Verio Flex Meter [id number] compl eted OneTouch Verio Flex Meter JEFF ([facility]) Mirtazapine 45 MG Oral Tablet mirtazapine 45 mg tablet derrick zapine 45 mg tablet completed mirtazapine 45 MG Oral Tablet SULLIVAN ([facility]) Amitriptyline Hydrochloride 50 MG Oral Tablet amitript yline 50 mg tablet amitriptyline 50 mg tablet completed amitriptyline hydrochloride 50 MG Oral Tablet SULLIVAN ([facility]) Famotidine 20 MG Oral Tablet famotidine 20 mg tablet famotidine 20 mg tablet completed famotidine 20 MG Oral Tablet JEFF ([facility]) Clonidine Hydrochloride 0.2 MG Oral Tablet clonidine H Cl 0.2 mg tablet clonidine HCl 0.2 mg tablet completed clonidine hydrochloride 0.2 MG Oral Tablet JEFF ([facility]) OneTouch Verio Flex Meter [id number] compl eted OneTouch Verio Flex Meter JEFF ([facility]) Mirtazapine 45 MG Oral Tablet mirtazapine 45 mg tablet derrick zapine 45 mg tablet completed mirtazapine 45 MG Oral Tablet SULLIVAN ([facility]) Clonazepam 1 MG Oral Tablet clonazepam 1 mg tablet clonazepam 1 mg ta blet completed clonazepam 1 MG Oral Tablet SULLIVAN ([facility]) Steglatro 5 mg tablet [id number] completed ertugliflozin 5 MG Oral Tablet [Steglatro] SULLIVAN ([facility]) Amitriptyline Hydrochloride 50 MG Oral Tablet amitript yline 50 mg tablet amitriptyline 50 mg tablet completed amitriptyline hydrochloride 50 MG Oral Tablet SULLIVAN ([facility]) Mirtazapine 15 MG Oral Tablet mirtazapine 15 mg tablet derrick zapine 15 mg tablet completed mirtazapine 15 MG Oral Tablet SULLIVAN ([facility]) benzonatate 200 MG Oral Capsule benzonatate 200 mg cap kenya benzonatate 200 mg capsule completed benzonatate 20 0 MG Oral Capsule SULLIVAN ([facility]) Steglatro 5 mg tablet [id number] completed ertugliflozin 5 MG Oral Tablet [Steglatro] JEFF ([facility]) buspirone hydrochloride 10 MG Oral Tablet buspirone 10 mg tablet buspirone 10 mg tablet completed buspirone hydr ochloride 10 MG Oral Tablet SULLIVAN ([facility]) Propranolol Hydrochloride 20 MG Oral Tablet propranolo l 20 mg tablet propranolol 20 mg tablet completed propranolol hydrochloride 20 MG Oral Tablet SULLIVAN ([facility]) BD Ultra-Fine Short Pen Needle 31 gauge x 5/16" USE ONCE DAILY [id number] completed BD Ultra-Fine Short Pen Need le 31 gauge x 5/16" SULLIVAN ([facility]) Steglatro 5 mg tablet [id number] completed ertugliflozin 5 MG Oral Tablet [Steglatro] JEFF ([facility]) buspirone hydrochloride 10 MG Oral Tablet buspirone 10 mg tablet buspirone 10 mg tablet completed buspirone hydr ochloride 10 MG Oral Tablet JEFF ([facility]) lamotrigine 25 MG Oral Tablet lamotrigine 25 mg tablet lamot rigine 25 mg tablet completed lamotrigine 25 MG Oral Tablet JEFF ([facility]) Isopropyl Alcohol 0.7 ML/ML Medicated Pad Alcohol Prep Pads Alco hol Prep Pads completed isopropyl alco hol 0.7 ML/ML Medicated Pad JEFF ([facility]) cefdinir 300 MG Oral Capsule cefdinir 300 mg capsule cefdinir 30 0 mg capsule completed cefdinir 300 M G Oral Capsule SULLIVAN ([facility]) Azithromycin 250 MG Oral Tablet azithromycin 250 mg ta blet azithromycin 250 mg tablet completed azithromycin 25 0 MG Oral Tablet SULLIVAN ([facility]) sennosides 8.6 mg-docusate sodium 50 mg capsule Take 2 capsules by oral route at bedtime. [id number] 2 capsule(s) completed docusate sodium 50 MG / sennosides, SHELTER 8.6 MG Oral Capsule JEFF ([facility]) Propranolol Hydrochloride 20 MG Oral Tablet propranolo l 20 mg tablet propranolol 20 mg tablet completed propranolol hydrochloride 20 MG Oral Tablet SULLIVAN ([facility]) Docusate Sodium 50 MG / sennosides, SHELTER 8.6 MG Oral Tablet sennosides 8.6 mg- docusate sodium 50 mg tablet Take 2 tablets by oral route at bedtime. sennosides 8.6 mg-docusate sodium 50 mg tablet Take 2 tablets by oral route at bedtime. 2 completed docusate sodiu m 50 MG / sennosides, SHELTER 8.6 MG Oral Tablet JEFF ([facility]) OneTouch Delica Plus Lancet 33 gauge [id number] completed OneTouch Delica Plus Lancet 33 gauge JEFF ([facility]) buspirone hydrochloride 7.5 MG Oral Tablet buspirone 7 .5 mg tablet buspirone 7.5 mg tablet completed buspirone h ydrochloride 7.5 MG Oral Tablet JEFF ([facility]) Azithromycin 250 MG Oral Tablet azithromycin 250 mg ta blet azithromycin 250 mg tablet completed azithromycin 25 0 MG Oral Tablet JEFF ([facility]) Clonidine Hydrochloride 0.2 MG Oral Tablet clonidine H Cl 0.2 mg tablet clonidine HCl 0.2 mg tablet completed clonidine hydrochloride 0.2 MG Oral Tablet JEFF ([facility]) Clonidine Hydrochloride 0.2 MG Oral Tablet clonidine H Cl 0.2 mg tablet clonidine HCl 0.2 mg tablet completed clonidine hydrochloride 0.2 MG Oral Tablet JEFF ([facility]) Clonazepam 1 MG Oral Tablet clonazepam 1 mg tablet clonazepam 1 mg ta blet completed clonazepam 1 MG Oral Tablet SULLIVAN ([facility]) Simvastatin 10 MG Oral Tablet simvastati n 10 mg tablet TAKE ONE TABLET BY MOUTH EVERY DAY simvastatin 10 mg tablet TAKE ONE TABLET BY MOUTH EVERY DAY completed simvastatin 10 MG Oral Table t SULLIVAN ([facility]) benztropine mesylate 0.5 MG Oral Tablet benztropine 0. 5 mg tablet benztropine 0.5 mg tablet completed benztrop ine mesylate 0.5 MG Oral Tablet JEFF ([facility]) lamotrigine 25 MG Oral Tablet lamotrigine 25 mg tablet lamot rigine 25 mg tablet completed lamotrigine 25 MG Oral Tablet SULLIVAN ([facility]) Amitriptyline Hydrochloride 75 MG Oral Tablet amitript yline 75 mg tablet amitriptyline 75 mg tablet completed amitriptyline hydrochloride 75 MG Oral Tablet JEFF ([facility]) Mirtazapine 15 MG Oral Tablet mirtazapine 15 mg tablet derrick zapine 15 mg tablet completed mirtazapine 15 MG Oral Tablet JEFF ([facility]) Propranolol Hydrochloride 20 MG Oral Tablet propranolo l 20 mg tablet propranolol 20 mg tablet completed propranolol hydrochloride 20 MG Oral Tablet JEFF ([facility]) OneTouch Delica Plus Lancet 33 gauge [id number] completed OneTouch Delica Plus Lancet 33 gauge JEFF ([facility]) Azithromycin 250 MG Oral Tablet azithromycin 250 mg ta blet azithromycin 250 mg tablet completed azithromycin 25 0 MG Oral Tablet SULLIVAN ([facility]) Docusate Sodium 50 MG / sennosides, SHELTER 8.6 MG Oral Tablet sennosides 8.6 mg- docusate sodium 50 mg tablet Take 2 tablets by oral route at bedtime. sennosides 8.6 mg-docusate sodium 50 mg tablet Take 2 tablets by oral route at bedtime. 2 completed docusate sodiu m 50 MG / sennosides, SHELTER 8.6 MG Oral Tablet JEFF ([facility]) Isopropyl Alcohol 0.7 ML/ML Medicated Pad Alcohol Prep Pads Alco hol Prep Pads completed isopropyl alco hol 0.7 ML/ML Medicated Pad JEFF ([facility]) Amitriptyline Hydrochloride 75 MG Oral Tablet amitript yline 75 mg tablet amitriptyline 75 mg tablet completed amitriptyline hydrochloride 75 MG Oral Tablet SULLIVAN ([facility]) 0.5 ML dulaglutide 1.5 MG/ML Auto-Inject or [Trulicity] Trulicity 0.75 mg/0.5 mL subcutaneous pen injector Trulicity 0.75 mg/0.5 mL subcutaneous pen injector completed 0.5 ML dulaglu tide 1.5 MG/ML Auto-Injector [Trulicity] SULLIVAN ([facility]) Clonazepam 0.5 MG Disintegrating Oral Ta blet clonazepam 0.5 mg disintegrating tablet clonazepam 0.5 mg disintegrating tablet completed clonazepam 0.5 MG Disintegrating Oral Tablet SULLIVAN ([facility]) Docusate Sodium 100 MG Oral Capsule [DOK] DOK 100 mg capsule DOK 100 mg capsule completed docusate sodiu m 100 MG Oral Capsule [DOK] SULLIVAN ([facility]) Prazosin 1 MG Oral Capsule prazosin 1 mg capsule prazosin 1 mg capsule completed prazosin 1 MG Oral Capsul e SULLIVAN ([facility]) Steglatro 5 mg tablet [id number] completed ertugliflozin 5 MG Oral Tablet [Steglatro] SULLIVAN ([facility]) Amitriptyline Hydrochloride 75 MG Oral Tablet amitript yline 75 mg tablet amitriptyline 75 mg tablet completed amitriptyline hydrochloride 75 MG Oral Tablet SULLIVAN ([facility]) buspirone hydrochloride 7.5 MG Oral Tablet buspirone 7 .5 mg tablet buspirone 7.5 mg tablet completed buspirone h ydrochloride 7.5 MG Oral Tablet JEFF ([facility]) Clindamycin 150 MG Oral Capsule clindamycin HCl 150 mg capsule clindamycin HCl 150 mg capsule completed clindam ycin 150 MG Oral Capsule JEFF ([facility]) benztropine mesylate 0.5 MG Oral Tablet benztropine 0. 5 mg tablet benztropine 0.5 mg tablet completed benztrop ine mesylate 0.5 MG Oral Tablet JEFF ([facility]) lamotrigine 25 MG Oral Tablet lamotrigine 25 mg tablet lamot rigine 25 mg tablet completed lamotrigine 25 MG Oral Tablet JEFF ([facility]) Clonidine Hydrochloride 0.2 MG Oral Tablet clonidine H Cl 0.2 mg tablet clonidine HCl 0.2 mg tablet completed clonidine hydrochloride 0.2 MG Oral Tablet SULLIVAN ([facility]) OneTouch Verio Flex Meter [id number] compl eted OneTouch Verio Flex Meter JEFF ([facility]) Mirtazapine 15 MG Oral Tablet mirtazapine 15 mg tablet derrick zapine 15 mg tablet completed mirtazapine 15 MG Oral Tablet JEFF ([facility]) 0.5 ML dulaglutide 1.5 MG/ML Auto-Inject or [Trulicity] Trulicity 0.75 mg/0.5 mL subcutaneous pen injector Trulicity 0.75 mg/0.5 mL subcutaneous pen injector completed 0.5 ML dulaglu tide 1.5 MG/ML Auto-Injector [Trulicity] JEFF ([facility]) Docusate Sodium 50 MG / sennosides, SHELTER 8.6 MG Oral Tablet sennosides 8.6 mg- docusate sodium 50 mg tablet Take 2 tablets by oral route at bedtime. sennosides 8.6 mg-docusate sodium 50 mg tablet Take 2 tablets by oral route at bedtime. 2 completed docusate sodiu m 50 MG / sennosides, SHELTER 8.6 MG Oral Tablet JEFF ([facility]) Clonazepam 0.5 MG Disintegrating Oral Ta blet clonazepam 0.5 mg disintegrating tablet clonazepam 0.5 mg disintegrating tablet completed clonazepam 0.5 MG Disintegrating Oral Tablet JEFF ([facility]) Amitriptyline Hydrochloride 75 MG Oral Tablet amitript yline 75 mg tablet amitriptyline 75 mg tablet completed amitriptyline hydrochloride 75 MG Oral Tablet JEFF ([facility]) Docusate Sodium 50 MG / sennosides, SHELTER 8.6 MG Oral Tablet sennosides 8.6 mg- docusate sodium 50 mg tablet Take 2 tablets by oral route at bedtime. sennosides 8.6 mg-docusate sodium 50 mg tablet Take 2 tablets by oral route at bedtime. 2 completed docusate sodiu m 50 MG / sennosides, SHELTER 8.6 MG Oral Tablet JEFF ([facility]) buspirone hydrochloride 10 MG Oral Tablet buspirone 10 mg tablet buspirone 10 mg tablet completed buspirone hydr ochloride 10 MG Oral Tablet SULLIVAN ([facility]) sennosides, SHELTER 8.6 MG Oral Tablet [Senna-Time] senna 8.6 mg tablet senna 8.6 mg tablet completed sennosi azam, SHELTER 8.6 MG Oral Tablet [Senna-Time] JEFF ([facility]) lamotrigine 25 MG Oral Tablet lamotrigine 25 mg tablet lamot rigine 25 mg tablet completed lamotrigine 25 MG Oral Tablet SULLIVAN ([facility]) lamotrigine 100 MG Oral Tablet lamotrigi ne 100 mg tablet TAKE ONE TABLET BY MOUTH ONCE DAILY lamotrigine 100 mg tablet TAKE ONE TABLET BY MOUTH ONC E DAILY completed lamotrigine 10 0 MG Oral Tablet JEFF ([facility]) Propranolol Hydrochloride 20 MG Oral Tablet propranolo l 20 mg tablet propranolol 20 mg tablet completed propranolol hydrochloride 20 MG Oral Tablet JEFF ([facility]) OneTouch Delica Plus Lancet 33 gauge [id number] completed OneTouch Delica Plus Lancet 33 gauge JEFF ([facility]) Prazosin 1 MG Oral Capsule prazosin 1 mg capsule prazosin 1 mg capsule completed prazosin 1 MG Oral Capsul e SULLIVAN ([facility]) Simvastatin 10 MG Oral Tablet simvastati n 10 mg tablet TAKE ONE TABLET BY MOUTH EVERY DAY simvastatin 10 mg tablet TAKE ONE TABLET BY MOUTH EVERY DAY completed simvastatin 10 MG Oral Table t JEFF ([facility]) sennosides 8.6 mg-docusate sodium 50 mg capsule Take 2 capsules by oral route at bedtime. [id number] 2 capsule(s) completed docusate sodium 50 MG / sennosides, SHELTER 8.6 MG Oral Capsule SULLIVAN ([facility]) OneTouch Verio Flex Meter [id number] compl eted OneTouch Verio Flex Meter JEFF ([facility]) buspirone hydrochloride 15 MG Oral Table t buspirone 15 mg tablet TAKE ONE TABLET BY MOUTH THREE TIMES A DAY buspirone 15 mg tablet TAKE ONE TABLET B Y MOUTH THREE TIMES A DAY completed buspirone hydrochloride 15 MG Oral Tablet JEFF ([facility]) Clonazepam 1 MG Oral Tablet clonazepam 1 mg tablet clonazepam 1 mg ta blet completed clonazepam 1 MG Oral Tablet SULLIVAN ([facility]) Amitriptyline Hydrochloride 75 MG Oral Tablet amitript yline 75 mg tablet amitriptyline 75 mg tablet completed amitriptyline hydrochloride 75 MG Oral Tablet JEFF ([facility]) Amitriptyline Hydrochloride 75 MG Oral Tablet amitript yline 75 mg tablet amitriptyline 75 mg tablet completed amitriptyline hydrochloride 75 MG Oral Tablet JEFF ([facility]) Clonazepam 0.5 MG Disintegrating Oral Ta blet clonazepam 0.5 mg disintegrating tablet clonazepam 0.5 mg disintegrating tablet completed clonazepam 0.5 MG Disintegrating Oral Tablet SULLIVAN ([facility]) Simvastatin 10 MG Oral Tablet simvastati n 10 mg tablet TAKE ONE TABLET BY MOUTH EVERY DAY simvastatin 10 mg tablet TAKE ONE TABLET BY MOUTH EVERY DAY completed simvastatin 10 MG Oral Table t JEFF ([facility]) lamotrigine 25 MG Oral Tablet lamotrigine 25 mg tablet lamot rigine 25 mg tablet completed lamotrigine 25 MG Oral Tablet JEFF ([facility]) 0.5 ML dulaglutide 1.5 MG/ML Auto-Inject or [Trulicity] Trulicity 0.75 mg/0.5 mL subcutaneous pen injector Trulicity 0.75 mg/0.5 mL subcutaneous pen injector completed 0.5 ML dulaglu tide 1.5 MG/ML Auto-Injector [Trulicity] JEFF ([facility]) buspirone hydrochloride 10 MG Oral Tablet buspirone 10 mg tablet buspirone 10 mg tablet completed buspirone hydr ochloride 10 MG Oral Tablet SULLIVAN ([facility]) Clonidine Hydrochloride 0.2 MG Oral Tablet clonidine H Cl 0.2 mg tablet clonidine HCl 0.2 mg tablet completed clonidine hydrochloride 0.2 MG Oral Tablet SULLIVAN ([facility]) cefdinir 300 MG Oral Capsule cefdinir 300 mg capsule cefdinir 30 0 mg capsule completed cefdinir 300 M G Oral Capsule SULLIVAN ([facility]) BD Ultra-Fine Short Pen Needle 31 gauge x 5/16" USE DIRECTED ONCE DAILY [id number] completed BD Ultr a-Fine Short Pen Needle 31 gauge x 5/16" SULLIVAN ([facility]) buspirone hydrochloride 15 MG Oral Table t buspirone 15 mg tablet TAKE ONE TABLET BY MOUTH THREE TIMES A DAY buspirone 15 mg tablet TAKE ONE TABLET B Y MOUTH THREE TIMES A DAY completed buspirone hydrochloride 15 MG Oral Tablet SULLIVAN ([facility]) Mirtazapine 15 MG Oral Tablet mirtazapine 15 mg tablet derrick zapine 15 mg tablet completed mirtazapine 15 MG Oral Tablet SULLIVAN ([facility]) OneTouch Verio test strips USE DIRECTED UP TO TWO TIMES A DAY [id number] completed OneTouch Verio test strip s SULLIVAN ([facility]) cefdinir 300 MG Oral Capsule cefdinir 300 mg capsule cefdinir 30 0 mg capsule completed cefdinir 300 M G Oral Capsule SULLIVAN ([facility]) sennosides 8.6 mg-docusate sodium 50 mg capsule Take 2 capsules by oral route at bedtime. [id number] 2 capsule(s) completed docusate sodium 50 MG / sennosides, SHELTER 8.6 MG Oral Capsule SULLIVAN ([facility]) Docusate Sodium 100 MG Oral Capsule [DOK] DOK 100 mg capsule DOK 100 mg capsule completed docusate sodiu m 100 MG Oral Capsule [DOK] SULLIVAN ([facility]) Amitriptyline Hydrochloride 75 MG Oral Tablet amitript yline 75 mg tablet amitriptyline 75 mg tablet completed amitriptyline hydrochloride 75 MG Oral Tablet SULLIVAN ([facility]) buspirone hydrochloride 10 MG Oral Tablet buspirone 10 mg tablet buspirone 10 mg tablet completed buspirone hydr ochloride 10 MG Oral Tablet SULLIVAN ([facility]) benztropine mesylate 0.5 MG Oral Tablet benztropine 0. 5 mg tablet benztropine 0.5 mg tablet completed benztrop ine mesylate 0.5 MG Oral Tablet SULLIVAN ([facility]) Propranolol Hydrochloride 20 MG Oral Tablet propranolo l 20 mg tablet propranolol 20 mg tablet completed propranolol hydrochloride 20 MG Oral Tablet SULLIVAN ([facility]) cefdinir 300 MG Oral Capsule cefdinir 300 mg capsule cefdinir 30 0 mg capsule completed cefdinir 300 M G Oral Capsule SULLIVAN ([facility]) Simvastatin 10 MG Oral Tablet simvastati n 10 mg tablet TAKE ONE TABLET BY MOUTH EVERY DAY simvastatin 10 mg tablet TAKE ONE TABLET BY MOUTH EVERY DAY completed simvastatin 10 MG Oral Table t SULLIVAN ([facility]) Famotidine 20 MG Oral Tablet famotidine 20 mg tablet famotidine 20 mg tablet completed famotidine 20 MG Oral Tablet SULLIVAN ([facility]) Triamcinolone Acetonide 1 MG/ML Topical Cream triamcinolone acetonide 0.1 % topical cream triamcinolone acetonide 0.1 % topical cream completed triamcinolone acetonide 1 MG/ML Topical Cream SULLIVAN ([facility]) Azithromycin 250 MG Oral Tablet azithromycin 250 mg ta blet azithromycin 250 mg tablet completed azithromycin 25 0 MG Oral Tablet [facility]) benzonatate 200 MG Oral Capsule benzonatate 200 mg cap [place] benzonatate 200 mg capsule completed benzonatate 20 0 MG Oral Capsule SULLIVAN ([facility]) buspirone hydrochloride 7.5 MG Oral Tablet buspirone 7 .5 mg tablet buspirone 7.5 mg tablet completed buspirone h ydrochloride 7.5 MG Oral Tablet SULLIVAN ([facility]) BD Ultra-Fine Short Pen Needle 31 gauge x 5/16" USE ONCE DAILY [id number] completed BD Ultra-Fine Short Pen Need le 31 gauge x 5/16" [facility]) Famotidine 20 MG Oral Tablet famotidine 20 mg tablet famotidine 20 mg tablet completed famotidine 20 MG Oral Tablet SULLIVAN ([facility]) sennosides, SHELTER 8.6 MG Oral Tablet [Senna-Time] senna 8.6 mg tablet senna 8.6 mg tablet completed sennosi azam, SHELTER 8.6 MG Oral Tablet [Senna-Time] SULLIVAN ([facility]) Azithromycin 250 MG Oral Tablet azithromycin 250 mg ta blet azithromycin 250 mg tablet completed azithromycin 25 0 MG Oral Tablet SULLIVAN ([facility]) Famotidine 20 MG Oral Tablet famotidine 20 mg tablet famotidine 20 mg tablet completed famotidine 20 MG Oral Tablet SULLIVAN ([facility]) Docusate Sodium 50 MG / sennosides, SHELTER 8.6 MG Oral Tablet sennosides 8.6 mg- docusate sodium 50 mg tablet Take 2 tablets by oral route at bedtime. sennosides 8.6 mg-docusate sodium 50 mg tablet Take 2 tablets by oral route at bedtime. 2 completed docusate sodiu m 50 MG / sennosides, SHELTER 8.6 MG Oral Tablet SULLIVAN ([facility]) ziprasidone 60 MG Oral Capsule ziprasidone 60 mg capsu le ziprasidone 60 mg capsule completed ziprasidone 60 MG Oral Capsule [facility]) Ofloxacin 3 MG/ML Otic Solution ofloxaci n 0.3 % ear drops INSTILL 10 DROPS INTO AFFECTED EAR S EVERY DAY ofloxacin 0.3 % ear drops INSTILL 10 VANDANA PS INTO AFFECTED EAR S EVERY DAY completed ofloxacin 3 MG/ML Otic Solution SULLIVAN ([facility]) Amitriptyline Hydrochloride 75 MG Oral Tablet amitript yline 75 mg tablet amitriptyline 75 mg tablet completed amitriptyline hydrochloride 75 MG Oral Tablet SULLIVAN ([facility]) buspirone hydrochloride 10 MG Oral Tablet buspirone 10 mg tablet buspirone 10 mg tablet completed buspirone hydr ochloride 10 MG Oral Tablet SULLIVAN ([facility]) benzonatate 200 MG Oral Capsule benzonatate 200 mg cap [place] benzonatate 200 mg capsule completed benzonatate 20 0 MG Oral Capsule SULLIVAN ([facility]) Azithromycin 250 MG Oral Tablet azithromycin 250 mg ta blet azithromycin 250 mg tablet completed azithromycin 25 0 MG Oral Tablet JEFF ([facility]) Clonazepam 0.5 MG Oral Tablet clonazepam 0.5 mg tablet TAKE ONE TABLET BY MOUTH NEEDED FOR 3 DAYS THEN ONE HALF TABLET UNTIL FINISHED MAXIMUM DAILY DOSE ONE TABLET clonazepam 0.5 mg tablet TAKE ONE TABLET BY MOUTH NEEDED FOR 3 DAYS THEN ONE HALF TABLET UNTIL FINISHED MAXIMUM DAILY DOSE ONE TABLET completed clonazepam 0.5 MG Or al Tablet JEFF ([facility]) Mirtazapine 15 MG Oral Tablet mirtazapine 15 mg tablet derrick zapine 15 mg tablet completed mirtazapine 15 MG Oral Tablet JEFF ([facility]) Amitriptyline Hydrochloride 50 MG Oral Tablet amitript yline 50 mg tablet amitriptyline 50 mg tablet completed amitriptyline hydrochloride 50 MG Oral Tablet SULLIVAN ([facility]) OneTouch Verio Flex Meter [id number] compl eted OneTouch Verio Flex Meter JEFF ([facility]) Docusate Sodium 50 MG / sennosides, SHELTER 8.6 MG Oral Tablet sennosides 8.6 mg- docusate sodium 50 mg tablet Take 2 tablets by oral route at bedtime. sennosides 8.6 mg-docusate sodium 50 mg tablet Take 2 tablets by oral route at bedtime. 2 completed docusate sodiu m 50 MG / sennosides, SHELTER 8.6 MG Oral Tablet JEFF ([facility]) cefdinir 300 MG Oral Capsule cefdinir 300 mg capsule cefdinir 30 0 mg capsule completed cefdinir 300 M G Oral Capsule JEFF ([facility]) Simvastatin 10 MG Oral Tablet simvastati n 10 mg tablet TAKE ONE TABLET BY MOUTH EVERY DAY simvastatin 10 mg tablet TAKE ONE TABLET BY MOUTH EVERY DAY completed simvastatin 10 MG Oral Table t JEFF ([facility]) Clonazepam 0.5 MG Disintegrating Oral Ta blet clonazepam 0.5 mg disintegrating tablet clonazepam 0.5 mg disintegrating tablet completed clonazepam 0.5 MG Disintegrating Oral Tablet JEFF ([facility]) Simvastatin 10 MG Oral Tablet simvastati n 10 mg tablet TAKE ONE TABLET BY MOUTH EVERY DAY simvastatin 10 mg tablet TAKE ONE TABLET BY MOUTH EVERY DAY completed simvastatin 10 MG Oral Table t JEFF ([facility]) Docusate Sodium 50 MG / sennosides, SHELTER 8.6 MG Oral Tablet sennosides 8.6 mg- docusate sodium 50 mg tablet Take 2 tablets by oral route at bedtime. sennosides 8.6 mg-docusate sodium 50 mg tablet Take 2 tablets by oral route at bedtime. 2 completed docusate sodiu m 50 MG / sennosides, SHELTER 8.6 MG Oral Tablet JEFF ([facility]) Triamcinolone Acetonide 1 MG/ML Topical Cream triamcinolone acetonide 0.1 % topical cream triamcinolone acetonide 0.1 % topical cream completed triamcinolone acetonide 1 MG/ML Topical Cream SULLIVAN ([facility]) Mirtazapine 45 MG Oral Tablet mirtazapine 45 mg tablet derrick zapine 45 mg tablet completed mirtazapine 45 MG Oral Tablet SULLIVAN ([facility]) ziprasidone 60 MG Oral Capsule ziprasidone 60 mg capsu le ziprasidone 60 mg capsule completed ziprasidone 60 MG Oral Capsule JEFF ([facility]) benztropine mesylate 0.5 MG Oral Tablet benztropine 0. 5 mg tablet benztropine 0.5 mg tablet completed benztrop ine mesylate 0.5 MG Oral Tablet SULLIVAN ([facility]) Docusate Sodium 50 MG / sennosides, SHELTER 8.6 MG Oral Tablet sennosides 8.6 mg- docusate sodium 50 mg tablet Take 2 tablets by oral route at bedtime. sennosides 8.6 mg-docusate sodium 50 mg tablet Take 2 tablets by oral route at bedtime. 2 completed docusate sodiu m 50 MG / sennosides, SHELTER 8.6 MG Oral Tablet SULLIVAN ([facility]) lamotrigine 25 MG Oral Tablet lamotrigine 25 mg tablet lamot rigine 25 mg tablet completed lamotrigine 25 MG Oral Tablet SULLIVAN ([facility]) Ketoconazole 20 MG/ML Medicated Shampoo ketoconazole 2 % shampoo ketoconazole 2 % shampoo completed ketoconazole 20 MG/ML Medicated Shampoo JEFF ([facility]) Mirtazapine 45 MG Oral Tablet mirtazapine 45 mg tablet derrick zapine 45 mg tablet completed mirtazapine 45 MG Oral Tablet JEFF ([facility]) Clonazepam 1 MG Oral Tablet clonazepam 1 mg tablet clonazepam 1 mg ta blet completed clonazepam 1 MG Oral Tablet SULLIVAN ([facility]) Clonidine Hydrochloride 0.2 MG Oral Tablet clonidine H Cl 0.2 mg tablet clonidine HCl 0.2 mg tablet completed clonidine hydrochloride 0.2 MG Oral Tablet SULLIVAN ([facility]) Docusate Sodium 50 MG / sennosides, SHELTER 8.6 MG Oral Tablet sennosides 8.6 mg- docusate sodium 50 mg tablet Take 2 tablets by oral route at bedtime. sennosides 8.6 mg-docusate sodium 50 mg tablet Take 2 tablets by oral route at bedtime. 2 completed docusate sodiu m 50 MG / sennosides, SHELTER 8.6 MG Oral Tablet SULLIVAN ([facility]) benzonatate 200 MG Oral Capsule benzonatate 200 mg cap [place] benzonatate 200 mg capsule completed benzonatate 20 0 MG Oral Capsule SULLIVAN ([facility]) Ketoconazole 20 MG/ML Medicated Shampoo ketoconazole 2 % shampoo ketoconazole 2 % shampoo completed ketoconazole 20 MG/ML Medicated Shampoo SULLIVAN ([facility]) Propranolol Hydrochloride 20 MG Oral Tablet propranolo l 20 mg tablet propranolol 20 mg tablet completed propranolol hydrochloride 20 MG Oral Tablet SULLIVAN ([facility]) Isopropyl Alcohol 0.7 ML/ML Medicated Pad Alcohol Prep Pads Alco hol Prep Pads completed isopropyl alco hol 0.7 ML/ML Medicated Pad JEFF ([facility]) sennosides, SHELTER 8.6 MG Oral Tablet [Senna-Time] senna 8.6 mg tablet senna 8.6 mg tablet completed sennosi azam, SHELTER 8.6 MG Oral Tablet [Senna-Time] JEFF ([facility]) cefdinir 300 MG Oral Capsule cefdinir 300 mg capsule cefdinir 30 0 mg capsule completed cefdinir 300 M G Oral Capsule SULLIVAN ([facility]) cefdinir 300 MG Oral Capsule cefdinir 300 mg capsule cefdinir 30 0 mg capsule completed cefdinir 300 M G Oral Capsule JEFF ([facility]) ziprasidone 60 MG Oral Capsule ziprasidone 60 mg capsu le ziprasidone 60 mg capsule completed ziprasidone 60 MG Oral Capsule JEFF ([facility]) ziprasidone 60 MG Oral Capsule ziprasidone 60 mg capsu le ziprasidone 60 mg capsule completed ziprasidone 60 MG Oral Capsule SULLIVAN ([facility]) Cephalexin 500 MG Oral Capsule cephalexin 500 mg capsu le cephalexin 500 mg capsule completed cephalexin 500 MG Oral Capsule SULLIVAN ([facility]) Clonidine Hydrochloride 0.2 MG Oral Tablet clonidine H Cl 0.2 mg tablet clonidine HCl 0.2 mg tablet completed clonidine hydrochloride 0.2 MG Oral Tablet SULLIVAN ([facility]) Docusate Sodium 100 MG Oral Capsule [DOK] DOK 100 mg capsule DOK 100 mg capsule completed docusate sodiu m 100 MG Oral Capsule [DOK] SULLIVAN ([facility]) lamotrigine 100 MG Oral Tablet lamotrigi ne 100 mg tablet TAKE ONE TABLET BY MOUTH ONCE DAILY lamotrigine 100 mg tablet TAKE ONE TABLET BY MOUTH ONC E DAILY completed lamotrigine 10 0 MG Oral Tablet SULLIVAN ([facility]) Clonazepam 0.5 MG Oral Tablet clonazepam 0.5 mg tablet TAKE ONE TABLET BY MOUTH NEEDED FOR 3 DAYS THEN ONE HALF TABLET UNTIL FINISHED MAXIMUM DAILY DOSE ONE TABLET clonazepam 0.5 mg tablet TAKE ONE TABLET BY MOUTH NEEDED FOR 3 DAYS THEN ONE HALF TABLET UNTIL FINISHED MAXIMUM DAILY DOSE ONE TABLET completed clonazepam 0.5 MG Or al Tablet SULLIVAN ([facility]) sennosides 8.6 mg-docusate sodium 50 mg capsule Take 2 capsules by oral route at bedtime. [id number] 2 capsule(s) completed docusate sodium 50 MG / sennosides, SHELTER 8.6 MG Oral Capsule SULLIVAN ([facility]) Trazodone Hydrochloride 50 MG Oral Table t trazodone 50 mg tablet TAKE ONE TABLET BY MOUTH EVERY DAY AT BEDTIME trazodone 50 mg tablet TAKE ONE TABLET B Y MOUTH EVERY DAY AT BEDTIME completed trazodone hydrochloride 50 MG Oral Tablet SULLIVAN ([facility]) Mirtazapine 15 MG Oral Tablet mirtazapine 15 mg tablet derrick zapine 15 mg tablet completed mirtazapine 15 MG Oral Tablet JEFF ([facility]) Amitriptyline Hydrochloride 75 MG Oral Tablet amitript yline 75 mg tablet amitriptyline 75 mg tablet completed amitriptyline hydrochloride 75 MG Oral Tablet SULLIVAN ([facility]) Clonidine Hydrochloride 0.2 MG Oral Tablet clonidine H Cl 0.2 mg tablet clonidine HCl 0.2 mg tablet completed clonidine hydrochloride 0.2 MG Oral Tablet JEFF ([facility]) OneTouch Verio Flex Meter [id number] compl eted OneTouch Verio Flex Meter SULLIVAN ([facility]) 0.5 ML dulaglutide 1.5 MG/ML Auto-Inject or [Trulicity] Trulicity 0.75 mg/0.5 mL subcutaneous pen injector Trulicity 0.75 mg/0.5 mL subcutaneous pen injector completed 0.5 ML dulaglu tide 1.5 MG/ML Auto-Injector [Trulicity] SULLIVAN ([facility]) lamotrigine 25 MG Oral Tablet lamotrigine 25 mg tablet lamot rigine 25 mg tablet completed lamotrigine 25 MG Oral Tablet SULLIVAN ([facility]) OneTouch Delica Plus Lancet 33 gauge [id number] completed OneTouch Delica Plus Lancet 33 gauge SULLIVAN ([facility]) Prazosin 1 MG Oral Capsule prazosin 1 mg capsule prazosin 1 mg capsule completed prazosin 1 MG Oral Capsul e SULLIVAN ([facility]) Triamcinolone Acetonide 1 MG/ML Topical Cream triamcinolone acetonide 0.1 % topical cream triamcinolone acetonide 0.1 % topical cream completed triamcinolone acetonide 1 MG/ML Topical Cream SULLIVAN ([facility]) Clonazepam 1 MG Oral Tablet clonazepam 1 mg tablet clonazepam 1 mg ta blet completed clonazepam 1 MG Oral Tablet SULLIVAN ([facility]) Clindamycin 150 MG Oral Capsule clindamycin HCl 150 mg capsule clindamycin HCl 150 mg capsule completed clindam ycin 150 MG Oral Capsule SULLIVAN ([facility]) Simvastatin 10 MG Oral Tablet simvastati n 10 mg tablet TAKE ONE TABLET BY MOUTH EVERY DAY simvastatin 10 mg tablet TAKE ONE TABLET BY MOUTH EVERY DAY completed simvastatin 10 MG Oral Table t JEFF ([facility]) benzonatate 200 MG Oral Capsule benzonatate 200 mg cap kenya benzonatate 200 mg capsule completed benzonatate 20 0 MG Oral Capsule SULLIVAN ([facility]) Famotidine 20 MG Oral Tablet famotidine 20 mg tablet famotidine 20 mg tablet completed famotidine 20 MG Oral Tablet JEFF ([facility]) benzonatate 200 MG Oral Capsule benzonatate 200 mg cap kenya benzonatate 200 mg capsule completed benzonatate 20 0 MG Oral Capsule SULLIVAN ([facility]) buspirone hydrochloride 10 MG Oral Tablet buspirone 10 mg tablet buspirone 10 mg tablet completed buspirone hydr ochloride 10 MG Oral Tablet SULLIVAN ([facility]) Simvastatin 10 MG Oral Tablet simvastati n 10 mg tablet TAKE ONE TABLET BY MOUTH EVERY DAY simvastatin 10 mg tablet TAKE ONE TABLET BY MOUTH EVERY DAY completed simvastatin 10 MG Oral Table t SULLIVAN ([facility]) OneTouch Verio Flex Meter [id number] compl eted OneTouch Verio Flex Meter SULLIVAN ([facility]) 0.5 ML dulaglutide 1.5 MG/ML Auto-Inject or [Trulicity] Trulicity 0.75 mg/0.5 mL subcutaneous pen injector Trulicity 0.75 mg/0.5 mL subcutaneous pen injector completed 0.5 ML dulaglu tide 1.5 MG/ML Auto-Injector [Trulicity] SULLIVAN ([facility]) Prazosin 1 MG Oral Capsule prazosin 1 mg capsule prazosin 1 mg capsule completed prazosin 1 MG Oral Capsul e SULLIVAN ([facility]) Insurance Providers Payer name Policy type / Coverage type Policy ID Covered green party ID Covered green party's relationship to talamantes Policy Tal[place]antes Plan Information [facility] PLUS DEVEN COMMUNITY PLAN [id number] SELF [id number] Boundless DEVEN [id number] SELF [id number] HMO BLUE [id number] SP [id number] BLUE CROSS VANESSA PLAN [id number] SP [id number] [facility] COMMUNITY PLAN MCDO [id number] SP [id number] Hmo Blue Option/Medicaid Health Maintenance Organization (HMO) V [id number] Self [id number] Hmo Blue Option/Medicaid Health Maintenance Organization (HMO) V [id number] Self [id number] Hmo Blue Option/Medicaid Health Maintenance Organization (HMO) V [id number] Self [id number] [facility] Medigap Part [id number] Self [id number] Medicaid S [id number] S [id number] Managed Care BCBS O [id number] S [id number] Medicaid S [id number] S [id number] Medicaid S [id number] S [id number] [facility] Essential Plan P [id number] S [id number] Managed Care - Community Plan [facility] P [id number] S [id number] Medicaid S [id number] S [id number] Managed Care - Community Plan [facility] P [id number] S [id number] Medicaid S [id number] S [id number] Managed Care - Community Plan [facility] P [id number] S [id number] Managed Care - [facility] Community Plan P [id number] S [id number] Medicaid S [id number] S [id number] Managed Care - [facility] Community Plan P [id number] S [id number] Medicaid S [id number] BCBS Federal O [id number] S [id number] [facility]) P UNAVAILABLE [id number] S UNAVAILABLE EXCELLUS BCBS P [id number] S [id number] Self Pay O [id number] S [id number] [facility] [id number] SP [id number] [employer] COMMUNITY PLAN MCDO [id number] SP [id number] [facility] O [id number] S [id number] [facility] Health Maintenance Organization (HMO) [id number] Self [id number] MEDICAID [id number] SP [id number] Managed Care - Community Plan [facility] P [id number] S [id number] [facility] Health Maintenance Organization (HMO) [id number] Self [id number] [facility] Health Maintenance Organization ([facility]) [id number] Self [id number] MEDICAID [id number] SP [id number] [facility] COMMUNITY PLAN MCDO [id number] SP [id number] [facility] Comm Plan Medicaid F [id number] SELF [id number] Managed Care - Community Plan [facility] P [id number] S [id number] UNHC AMERICHOICE XIX -HMO [id number] 18 [id number] [facility]CA[facility]) O [id number] S [id number] MEDICAID [id number] SP [id number] [facility] [id number] P [id number] SELFPAY P HMO BLUE/MEDICAID [id number] P [id number] MEDICAID [id number] SP [id number] [facility]AN 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 Somatic Symptom D isorder Condition 07/02/2021 12:00:00 AM EDT Accumedic ([facility]) F31.63 Bipolar disorder, current ep isode mixed, severe, without psychotic features Bipolar disord, crnt epsd mixed, severe, w/o psych features Condition 07/02/2021 12:00:00 AM EDT Accumedic ([facility]) [id number] Primary erectile dysfunction Primary Erectile Dysfunct ion Problem 06/12/2021 12:00:00 AM EDT JEFF ([facility]) [id number] Primary erectile dysfunction Primary Erectile Dysfunct ion Problem 06/12/2021 12:00:00 AM EDT JEFF ([facility]) [id number] Acute otitis externa Acute Otitis Externa Problem 05/02/2021 12:00:00 AM EDT JEFF ([facility]) [id number] Acute otitis externa Acute Otitis Externa Problem 05/02/2021 12:00:00 AM EDT JEFF ([facility]) [id number] Acute otitis externa Acute Otitis Externa Problem 05/02/2021 12:00:00 AM EDT JEFF ([facility]) [id number] Chest pain Chest Pain Problem 03/22/2021 12:00:00 AM ED T JEFF ([facility]) [id number] Tobacco user Tobacco User Problem 03/22/2021 12:00:00 A M EDT JEFF ([facility]) [id number] Chest pain Chest Pain Problem 03/22/2021 12:00:00 AM ED T JEFF ([facility]) [id number] Tobacco user Tobacco User Problem 03/22/2021 12:00:00 A M EDT JEFF ([facility]) [id number] Chest pain Chest Pain Problem 03/22/2021 12:00:00 AM ED T JEFF ([facility]) [id number] Tobacco user Tobacco User Problem 03/22/2021 12:00:00 A M EDT JEFF ([facility]) [id number] Chest pain Chest Pain Problem 03/22/2021 12:00:00 AM ED T JEFF ([facility]) [id number] Tobacco user Tobacco User Problem 03/22/2021 12:00:00 A M EDT JEFF ([facility]) [id number] Chest pain Chest Pain Problem 03/22/2021 12:00:00 AM ED T JEFF ([facility]) [id number] Tobacco user Tobacco User Problem 03/22/2021 12:00:00 A M EDT JEFF ([facility]) [id number] Chest pain Chest Pain Problem 03/22/2021 12:00:00 AM ED T JEFF ([facility]) [id number] Tobacco user Tobacco User Problem 03/22/2021 12:00:00 A M EDT JEFF ([facility]) F17.200 Nicotine dependence, unspecified, uncomp licated Tobacco Use Disorder, Moderate Condition 12/07/2020 12:00:00 AM EST Accumedic ([facility]) 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 Condition 12/07/2020 12:00:00 AM EST Accumedic ([facility]) E11.9 Type 2 diabetes mellitus Type 2 [...] 12:00:00 AM EST MEDENT ([facility] [id number] Bilateral earache Bilateral Earache Problem 10/03 12:00:00 AM EST JEFF ([facility]) [id number] Bilateral earache Bilateral Earache Problem 10/03 12:00:00 AM EST JEFF ([facility]) [id number] Bilateral earache Bilateral Earache Problem 10/03 12:00:00 AM EST JEFF ([facility]) [id number] Bilateral earache Bilateral Earache Problem 10/03 12:00:00 AM EST JEFF ([facility]) [id number] Bilateral earache Bilateral Earache Problem 10/03 12:00:00 AM EST JEFF ([facility]) [id number] Bilateral earache Bilateral Earache Problem 10/03 12:00:00 AM EST JEFF ([facility]) [id number] Bilateral earache Bilateral Earache Problem 10/03 12:00:00 AM EST JEFF ([facility]) [id number] Bilateral earache Bilateral Earache Problem 10/03 12:00:00 AM EST JEFF ([facility]) [id number] Bilateral earache Bilateral Earache Problem 10/03 12:00:00 AM EST JEFF ([facility]) [id number] Bilateral earache Bilateral Earache Problem 10/03 12:00:00 AM EST JEFF ([facility]) [id number] Bilateral earache Bilateral Earache Problem 10/03 12:00:00 AM EST JEFF ([facility]) [id number] Bilateral earache Bilateral Earache Problem 10/03 12:00:00 AM EST JEFF ([facility]) [id number] Bilateral earache Bilateral Earache Problem 10/03 12:00:00 AM EST JEFF ([facility]) [id number] Bilateral earache Bilateral Earache Problem 10/03 12:00:00 AM EST JEFF ([facility]) [id number] Paronychia of toe Paronychia of Toe Problem 09/01 12:00:00 AM EST JEFF ([facility]) [id number] Paronychia of toe Paronychia of Toe Problem 09/01 12:00:00 AM EST JEFF ([facility]) [id number] Paronychia of toe Paronychia of Toe Problem 09/01 12:00:00 AM EST JEFF ([facility]) [id number] Paronychia of toe Paronychia of Toe Problem 09/01 12:00:00 AM EST JEFF ([facility]) [id number] Paronychia of toe Paronychia of Toe Problem 09/01 12:00:00 AM EST JEFF ([facility]) [id number] Paronychia of toe Paronychia of Toe Problem 09/01 12:00:00 AM EST JEFF ([facility]) [id number] Paronychia of toe Paronychia of Toe Problem 09/01 12:00:00 AM EST JEFF ([facility]) [id number] Paronychia of toe Paronychia of Toe Problem 09/01 12:00:00 AM EST JEFF ([facility]) [id number] Paronychia of toe Paronychia of Toe Problem 09/01 12:00:00 AM EST JEFF ([facility]) [id number] Paronychia of toe Paronychia of Toe Problem 09/01 12:00:00 AM EST JEFF ([facility]) [id number] Paronychia of toe Paronychia of Toe Problem 09/01 12:00:00 AM EST JEFF ([facility]) [id number] Paronychia of toe Paronychia of Toe Problem 09/01 12:00:00 AM EST JEFF ([facility]) [id number] Paronychia of toe Paronychia of Toe Problem 09/01 12:00:00 AM EST JEFF ([facility]) [id number] Paronychia of toe Paronychia of Toe Problem 09/01 12:00:00 AM EST JEFF ([facility]) [id number] Paronychia of toe Paronychia of Toe Problem 09/01 12:00:00 AM EST JEFF ([facility]) F17.219 Nicotine dependence, cigaret mary, with unspecified nicotine-induced disorders Nicotine dependence, cigarettes, wunsp disorders Condition 08/17/2020 12:00:00 AM EST [facility] ([facility]) [id number] Type 2 diabetes mellitus without complic ation Type 2 Diabetes Mellitus without Complication Problem 08/10/2020 12:00:00 AM EDT JEFF ([facility]) [id number] Type 2 diabetes mellitus without complic ation Type 2 Diabetes Mellitus without Complication Problem 08/10/2020 12:00:00 AM EDT JEFF ([facility]) [id number] Type 2 diabetes mellitus without complic ation Type 2 Diabetes Mellitus without Complication Problem 08/10/2020 12:00:00 AM EDT JEFF ([facility]) [id number] Type 2 diabetes mellitus without complic ation Type 2 Diabetes Mellitus without Complication Problem 08/10/2020 12:00:00 AM EDT JEFF ([facility]) [id number] Type 2 diabetes mellitus without complic ation Type 2 Diabetes Mellitus without Complication Problem 08/10/2020 12:00:00 AM EDT JEFF ([facility]) [id number] Type 2 diabetes mellitus without complic ation Type 2 Diabetes Mellitus without Complication Problem 08/10/2020 12:00:00 AM EDT JEFF ([facility]) [id number] Type 2 diabetes mellitus without complic ation Type 2 Diabetes Mellitus without Complication Problem 08/10/2020 12:00:00 AM EDT JEFF ([facility]) [id number] Type 2 diabetes mellitus without complic ation Type 2 Diabetes Mellitus without Complication Problem 08/10/2020 12:00:00 AM EDT JEFF ([facility]) [id number] Type 2 diabetes mellitus without complic ation Type 2 Diabetes Mellitus without Complication Problem 08/10/2020 12:00:00 AM EDT JEFF ([facility]) [id number] Type 2 diabetes mellitus without complic ation Type 2 Diabetes Mellitus without Complication Problem 08/10/2020 12:00:00 AM EDT JEFF ([facility]) [id number] Type 2 diabetes mellitus without complic ation Type 2 Diabetes Mellitus without Complication Problem 08/10/2020 12:00:00 AM EDT JEFF ([facility]) [id number] Type 2 diabetes mellitus without complic ation Type 2 Diabetes Mellitus without Complication Problem 08/10/2020 12:00:00 AM EDT JEFF ([facility]) [id number] Type 2 diabetes mellitus without complic ation Type 2 Diabetes Mellitus without Complication Problem 08/10/2020 12:00:00 AM EDT JEFF ([facility]) [id number] Type 2 diabetes mellitus without complic ation Type 2 Diabetes Mellitus without Complication Problem 08/10/2020 12:00:00 AM EDT JEFF ([facility]) [id number] Type 2 diabetes mellitus without complic ation Type 2 Diabetes Mellitus without Complication Problem 08/10/2020 12:00:00 AM EDT JEFF ([facility]) [id number] Type 2 diabetes mellitus without complic ation Type 2 Diabetes Mellitus without Complication Problem 08/10/2020 12:00:00 AM EDT JEFF ([facility]) [id number] Type 2 diabetes mellitus without complic ation Type 2 Diabetes Mellitus without Complication Problem 08/10/2020 12:00:00 AM EDT JEFF ([facility]) [id number] Fitting procedure Fitting Procedure Problem 07/27 05:54:54 PM EDT JEFF ([facility]) [id number] Fitting procedure Fitting Procedure Problem 07/27 05:54:54 PM EDT JEFF ([facility]) [id number] Fitting procedure Fitting Procedure Problem 07/27 05:54:54 PM EDT JEFF ([facility]) [id number] Fitting procedure Fitting Procedure Problem 07/27 05:54:54 PM EDT JEFF ([facility]) [id number] Fitting procedure Fitting Procedure Problem 07/27 05:54:54 PM EDT JEFF ([facility]) [id number] Fitting procedure Fitting Procedure Problem 07/27 05:54:54 PM EDT JEFF ([facility]) [id number] Fitting procedure Fitting Procedure Problem 07/27 05:54:54 PM EDT JEFF ([facility]) [id number] Fitting procedure Fitting Procedure Problem 07/27 05:54:54 PM EDT JEFF ([facility]) [id number] Fitting procedure Fitting Procedure Problem 07/27 05:54:54 PM EDT JEFF ([facility]) [id number] Fitting procedure Fitting Procedure Problem 07/27 05:54:54 PM EDT JEFF ([facility]) [id number] Fitting procedure Fitting Procedure Problem 07/27 05:54:54 PM EDT JEFF ([facility]) [id number] Fitting procedure Fitting Procedure Problem 07/27 05:54:54 PM EDT JEFF ([facility]) [id number] Fitting procedure Fitting Procedure Problem 07/27 05:54:54 PM EDT JEFF ([facility]) [id number] Fitting procedure Fitting Procedure Problem 07/27 05:54:54 PM EDT JEFF ([facility]) [id number] Fitting procedure Fitting Procedure Problem 07/27 05:54:54 PM EDT JEFF ([facility]) [id number] Fitting procedure Fitting Procedure Problem 07/27 05:54:54 PM EDT JEFF ([facility]) [id number] Fitting procedure Fitting Procedure Problem 07/27 05:54:54 PM EDT JEFF ([facility]) [id number] Finding of esophagus Finding of Esophagus Problem 07/27/2020 05:54:53 PM EDT JEFF ([facility]) [id number] SNOMED CT Concept SNOMED CT Concept Problem 07/27 05:54:53 PM EDT JEFF ([facility]) [id number] Asthma Asthma Problem 07/27/2020 05:54:53 PM ED T JEFF ([facility]) [id number] Depressive disorder Depressive Disorder Problem 1 05:54:53 PM EDT JEFF ([facility]) [id number] Viral hepatitis C Viral Hepatitis C Problem 07/27/2020 05:54:53 PM EDT JEFF ([facility]) [id number] Finding of esophagus Finding of Esophagus Problem 07/27/2020 05:54:53 PM EDT JEFF ([facility]) [id number] SNOMED CT Concept SNOMED CT Concept Problem 07/27 05:54:53 PM EDT JEFF ([facility]) [id number] Asthma Asthma Problem 07/27/2020 05:54:53 PM ED T JEFF ([facility]) [id number] Depressive disorder Depressive Disorder Problem 1 05:54:53 PM EDT JEFF ([facility]) [id number] Viral hepatitis C Viral Hepatitis C Problem 07/27/2020 05:54:53 PM EDT JEFF ([facility]) [id number] Finding of esophagus Finding of Esophagus Problem 07/27/2020 05:54:53 PM EDT JEFF ([facility]) [id number] SNOMED CT Concept SNOMED CT Concept Problem 07/27 05:54:53 PM EDT JEFF ([facility]) [id number] Asthma Asthma Problem 07/27/2020 05:54:53 PM ED T JEFF ([facility]) [id number] Depressive disorder Depressive Disorder Problem 1 05:54:53 PM EDT JEFF ([facility]) 99053631 Viral hepatitis C Viral Hepatitis C Problem 07/27/2020 05:54:53 PM EDT JEFF ([facility]) [id number] Finding of esophagus Finding of Esophagus Problem 07/27/2020 05:54:53 PM EDT JEFF ([facility]) [id number] SNOMED CT Concept SNOMED CT Concept Problem 07/27 05:54:53 PM EDT JEFF ([facility]) [id number] Asthma Asthma Problem 07/27/2020 05:54:53 PM ED T JEFF ([facility]) [id number] Depressive disorder Depressive Disorder Problem 1 05:54:53 PM EDT JEFF ([facility]) [id number] Viral hepatitis C Viral Hepatitis C Problem 07/27/2020 05:54:53 PM EDT JEFF ([facility]) [id number] Finding of esophagus Finding of Esophagus Problem 07/27/2020 05:54:53 PM EDT JEFF ([facility]) [id number] SNOMED CT Concept SNOMED CT Concept Problem 07/27 05:54:53 PM EDT JEFF ([facility]) [id number] Asthma Asthma Problem 07/27/2020 05:54:53 PM ED T JEFF ([facility]) [id number] Depressive disorder Depressive Disorder Problem 1 05:54:53 PM EDT JEFF ([facility]) [id number] Viral hepatitis C Viral Hepatitis C Problem 07/27/2020 05:54:53 PM EDT JEFF ([facility]) [id number] Finding of esophagus Finding of Esophagus Problem 07/27/2020 05:54:53 PM EDT JEFF ([facility]) [id number] SNOMED CT Concept SNOMED CT Concept Problem 07/27 05:54:53 PM EDT JEFF ([facility]) [id number] Asthma Asthma Problem 07/27/2020 05:54:53 PM ED T JEFF ([facility]) [id number] Depressive disorder Depressive Disorder Problem 1 05:54:53 PM EDT JEFF ([facility]) [id number] Viral hepatitis C Viral Hepatitis C Problem 07/27/2020 05:54:53 PM EDT JEFF ([facility]) [id number] Finding of esophagus Finding of Esophagus Problem 07/27/2020 05:54:53 PM EDT JEFF ([facility]) [id number] SNOMED CT Concept SNOMED CT Concept Problem 07/27 05:54:53 PM EDT JEFF ([facility]) [id number] Asthma Asthma Problem 07/27/2020 05:54:53 PM ED T JEFF ([facility]) [id number] Depressive disorder Depressive Disorder Problem 1 05:54:53 PM EDT JEFF ([facility]) [id number] Viral hepatitis C Viral Hepatitis C Problem 07/27/2020 05:54:53 PM EDT JEFF ([facility]) [id number] Finding of esophagus Finding of Esophagus Problem 07/27/2020 05:54:53 PM EDT JEFF ([facility]) [id number] SNOMED CT Concept SNOMED CT Concept Problem 07/27 05:54:53 PM EDT JEFF ([facility]) [id number] Asthma Asthma Problem 07/27/2020 05:54:53 PM ED T JEFF ([facility]) [id number] Depressive disorder Depressive Disorder Problem 1 05:54:53 PM EDT JEFF ([facility]) [id number] Viral hepatitis C Viral Hepatitis C Problem 07/27/2020 05:54:53 PM EDT JEFF ([facility]) [id number] Finding of esophagus Finding of Esophagus Problem 07/27/2020 05:54:53 PM EDT JEFF ([facility]) [id number] SNOMED CT Concept SNOMED CT Concept Problem 07/27 05:54:53 PM EDT JEFF ([facility]) [id number] Asthma Asthma Problem 07/27/2020 05:54:53 PM ED T JEFF ([facility]) [id number] Depressive disorder Depressive Disorder Problem 1 05:54:53 PM EDT JEFF ([facility]) [id number] Viral hepatitis C Viral Hepatitis C Problem 07/27/2020 05:54:53 PM EDT JEFF ([facility]) [id number] Finding of esophagus Finding of Esophagus Problem 07/27/2020 05:54:53 PM EDT JEFF ([facility]) [id number] SNOMED CT Concept SNOMED CT Concept Problem 07/27 05:54:53 PM EDT JEFF ([facility]) [id number] Asthma Asthma Problem 07/27/2020 05:54:53 PM ED T JEFF ([facility]) [id number] Depressive disorder Depressive Disorder Problem 1 05:54:53 PM EDT JEFF ([facility]) [id number] Viral hepatitis C Viral Hepatitis C Problem 07/27/2020 05:54:53 PM EDT JEFF ([facility]) [id number] Finding of esophagus Finding of Esophagus Problem 07/27/2020 05:54:53 PM EDT JEFF ([facility]) [id number] SNOMED CT Concept SNOMED CT Concept Problem 07/27 05:54:53 PM EDT JEFF ([facility]) [id number] Asthma Asthma Problem 07/27/2020 05:54:53 PM ED T JEFF ([facility]) [id number] Depressive disorder Depressive Disorder Problem 1 05:54:53 PM EDT JEFF ([facility]) [id number] Viral hepatitis C Viral Hepatitis C Problem 07/27/2020 05:54:53 PM EDT JEFF ([facility]) [id number] Finding of esophagus Finding of Esophagus Problem 07/27/2020 05:54:53 PM EDT JEFF ([facility]) [id number] SNOMED CT Concept SNOMED CT Concept Problem 07/27 05:54:53 PM EDT JEFF ([facility]) [id number] Asthma Asthma Problem 07/27/2020 05:54:53 PM ED T JEFF ([facility]) [id number] Depressive disorder Depressive Disorder Problem 1 05:54:53 PM EDT JEFF ([facility]) [id number] Viral hepatitis C Viral Hepatitis C Problem 07/27/2020 05:54:53 PM EDT JEFF ([facility]) [id number] Finding of esophagus Finding of Esophagus Problem 07/27/2020 05:54:53 PM EDT JEFF ([facility]) [id number] SNOMED CT Concept SNOMED CT Concept Problem 07/27 05:54:53 PM EDT JEFF ([facility]) [id number] Asthma Asthma Problem 07/27/2020 05:54:53 PM ED T JEFF ([facility]) [id number] Depressive disorder Depressive Disorder Problem 1 05:54:53 PM EDT JEFF ([facility]) [id number] Viral hepatitis C Viral Hepatitis C Problem 07/27/2020 05:54:53 PM EDT JEFF ([facility]) [id number] Finding of esophagus Finding of Esophagus Problem 07/27/2020 05:54:53 PM EDT JEFF ([facility]) [id number] SNOMED CT Concept SNOMED CT Concept Problem 07/27 05:54:53 PM EDT JEFF ([facility]) [id number] Asthma Asthma Problem 07/27/2020 05:54:53 PM ED T JEFF ([facility]) [id number] Depressive disorder Depressive Disorder Problem 1 05:54:53 PM EDT JEFF ([facility]) [id number] Viral hepatitis C Viral Hepatitis C Problem 07/27/2020 05:54:53 PM EDT JEFF ([facility]) [id number] Viral hepatitis C Viral Hepatitis C Problem 07/27/2020 05:54:53 PM EDT JEFF ([facility]) [id number] Finding of esophagus Finding of Esophagus Problem 07/27/2020 05:54:53 PM EDT JEFF ([facility]) [id number] SNOMED CT Concept SNOMED CT Concept Problem 07/27 05:54:53 PM EDT JEFF ([facility]) [id number] Asthma Asthma Problem 07/27/2020 05:54:53 PM ED T JEFF ([facility]) [id number] Depressive disorder Depressive Disorder Problem 1 05:54:53 PM EDT JEFF ([facility]) [id number] Viral hepatitis C Viral Hepatitis C Problem 07/27/2020 05:54:53 PM EDT JEFF ([facility]) [id number] Finding of esophagus Finding of Esophagus Problem 07/27/2020 05:54:53 PM EDT JEFF ([facility]) [id number] SNOMED CT Concept SNOMED CT Concept Problem 07/27 05:54:53 PM EDT JEFF ([facility]) [id number] Asthma Asthma Problem 07/27/2020 05:54:53 PM ED T JEFF ([facility]) [id number] Depressive disorder Depressive Disorder Problem 1 05:54:53 PM EDT JEFF ([facility]) [id number] Viral hepatitis C Viral Hepatitis C Problem 07/27/2020 05:54:53 PM EDT JEFF ([facility]) [id number] Finding of esophagus Finding of Esophagus Problem 07/27/2020 05:54:53 PM EDT JEFF ([facility]) [id number] SNOMED CT Concept SNOMED CT Concept Problem 07/27 05:54:53 PM EDT JEFF ([facility]) [id number] Asthma Asthma Problem 07/27/2020 05:54:53 PM ED T JEFF ([facility]) [id number] Depressive disorder Depressive Disorder Problem 1 05:54:53 PM EDT JEFF ([facility]) [id number] Clinical finding Clinical Finding Problem 019 12:00:00 AM EST - 03/02/2021 12:00:00 AM EDT JEFF ([facility]) [id number] Clinical finding Clinical Finding Problem 019 12:00:00 AM EST - 03/02/2021 12:00:00 AM EDT JEFF ([facility]) [id number] Clinical finding Clinical Finding Problem 019 12:00:00 AM EST - 03/02/2021 12:00:00 AM EDT JEFF ([facility]) [id number] Clinical finding Clinical Finding Problem 019 12:00:00 AM EST - 03/02/2021 12:00:00 AM EDT JEFF ([facility]) [id number] Clinical finding Clinical Finding Problem 019 12:00:00 AM EST - 03/02/2021 12:00:00 AM EDT JEFF ([facility]) [id number] Clinical finding Clinical Finding Problem 019 12:00:00 AM EST - 03/02/2021 12:00:00 AM EDT JEFF ([facility]) [id number] Clinical finding Clinical Finding Problem 019 12:00:00 AM EST - 03/02/2021 12:00:00 AM EDT JEFF ([facility]) [id number] Acute maxillary sinusitis Acute Maxillary Sinusitis Pr oblem 04/28/2018 12:00:00 AM EDT - 03/02/2021 12:00:00 AM EDT JEFF ([facility]) [id number] Acute maxillary sinusitis Acute Maxillary Sinusitis Pr oblem 04/28/2018 12:00:00 AM EDT - 03/02/2021 12:00:00 AM EDT JEFF ([facility]) [id number] Acute maxillary sinusitis Acute Maxillary Sinusitis Pr oblem 04/28/2018 12:00:00 AM EDT - 03/02/2021 12:00:00 AM EDT JEFF ([facility]) [id number] Acute maxillary sinusitis Acute Maxillary Sinusitis Pr oblem 04/28/2018 12:00:00 AM EDT - 03/02/2021 12:00:00 AM EDT JEFF ([facility]) [id number] Acute maxillary sinusitis Acute Maxillary Sinusitis Pr oblem 04/28/2018 12:00:00 AM EDT - 03/02/2021 12:00:00 AM EDT JEFF ([facility]) [id number] Acute maxillary sinusitis Acute Maxillary Sinusitis Pr oblem 04/28/2018 12:00:00 AM EDT - 03/02/2021 12:00:00 AM EDT JEFF ([facility]) [id number] Acute maxillary sinusitis Acute Maxillary Sinusitis Pr oblem 04/28/2018 12:00:00 AM EDT - 03/02/2021 12:00:00 AM EDT JEFF ([facility]) [id number] Abdominal pain Abdominal Pain Problem 06/15/2015 12:00:00 AM EDT - 03/02/2021 12:00:00 AM EDT JEFF ([facility]) [id number] Abdominal pain Abdominal Pain Problem 06/15/2015 12:00:00 AM EDT - 03/02/2021 12:00:00 AM EDT JEFF ([facility]) [id number] Abdominal pain Abdominal Pain Problem 06/15/2015 12:00:00 AM EDT - 03/02/2021 12:00:00 AM EDT JEFF ([facility]) [id number] Abdominal pain Abdominal Pain Problem 06/15/2015 12:00:00 AM EDT - 03/02/2021 12:00:00 AM EDT JEFF ([facility]) [id number] Abdominal pain Abdominal Pain Problem 06/15/2015 12:00:00 AM EDT - 03/02/2021 12:00:00 AM EDT JEFF ([facility]) [id number] Abdominal pain Abdominal Pain Problem 06/15/2015 12:00:00 AM EDT - 03/02/2021 12:00:00 AM EDT JEFF ([facility]) [id number] Abdominal pain Abdominal Pain Problem 06/15/2015 12:00:00 AM EDT - 03/02/2021 12:00:00 AM EDT JEFF ([facility]) [id number] Pain Pain Problem 09/14/2012 12:0 0:00 AM EST - 03/02/2021 12:00:00 AM EDT JEFF ([facility]) [id number] Clinical finding Clinical Finding Problem 012 12:00:00 AM EST - 03/02/2021 12:00:00 AM EDT JEFF ([facility]) [id number] Chronic constipation Chronic Constipation Problem 09/14/2012 12:00:00 AM EST - 03/02/2021 12:00:00 AM EDT JEFF ([facility]) [id number] Clinical finding Clinical Finding Problem 012 12:00:00 AM EST - 03/02/2021 12:00:00 AM EDT JEFF ([facility]) [id number] Chronic constipation Chronic Constipation Problem 09/14/2012 12:00:00 AM EST - 03/02/2021 12:00:00 AM EDT JEFF ([facility]) [id number] Clinical finding Clinical Finding Problem 012 12:00:00 AM EST - 03/02/2021 12:00:00 AM EDT JEFF ([facility]) [id number] Chronic constipation Chronic Constipation Problem 09/14/2012 12:00:00 AM EST - 03/02/2021 12:00:00 AM EDT JEFF ([facility]) [id number] Chronic constipation Chronic Constipation Problem 09/14/2012 12:00:00 AM EST - 03/02/2021 12:00:00 AM EDT JEFF ([facility]) [id number] Clinical finding Clinical Finding Problem 012 12:00:00 AM EST - 03/02/2021 12:00:00 AM EDT JEFF ([facility]) [id number] Chronic constipation Chronic Constipation Problem 09/14/2012 12:00:00 AM EST - 03/02/2021 12:00:00 AM EDT JEFF ([facility]) [id number] Clinical finding Clinical Finding Problem 012 12:00:00 AM EST - 03/02/2021 12:00:00 AM EDT JEFF ([facility]) [id number] Chronic constipation Chronic Constipation Problem 09/14/2012 12:00:00 AM EST - 03/02/2021 12:00:00 AM EDT JEFF ([facility]) [id number] Clinical finding Clinical Finding Problem 012 12:00:00 AM EST - 03/02/2021 12:00:00 AM EDT JEFF ([facility]) [id number] Chronic constipation Chronic Constipation Problem 09/14/2012 12:00:00 AM EST - 03/02/2021 12:00:00 AM EDT JEFF ([facility]) Surgeries/Procedures Procedure Description Date Indications Data Source(s) Extended Individual Psychotherapy - 45 min 07/02/2021 12:00:00 AM EDT - 07/02/2021 12:00:00 AM EDT [facility] ([facility]) Extended Individual Psychotherapy - 45 min 12:00:00 AM EDT [facility] ([facility]) TEMPMHCTelemed 30" Psychotherapy 021 12:00:00 AM EDT - 06/14/2021 12:00:00 AM EDT [facility] ([facility]) TEMPMHCTelemed 30" Psychotherapy 06/14/2021 12:00:00 A M EDT [facility] ([facility]) Brief Individual Psychotherapy - 30 min 05/31/2021 12:00:00 AM EDT - 05/31/2021 12:00:00 AM EDT [facility] ([facility]) Brief Individual Psychotherapy - 30 min 05/31/2021 12: 00:00 AM EDT [facility] ([facility]) MHCTelemed E/M Lvl 5--Est pt 05/30/2021 12:00:00 AM EDT - 05/30/2021 12:00:00 AM EDT [facility] ([facility]) MHCTelemed E/M Lvl 5--Est pt 05/30/2021 12:00:00 AM ED T [facility] ([facility]) [id number]"Psychotherapy 12:00:00 AM EDT - 05/01/2021 12:00:00 AM EDT [facility] ([facility]) [id number]"Psychotherapy 05/01/2021 12:00:00 AM EDT [facility] ([facility]) Extended Individual Psychotherapy - 45 min 03/26/2021 12:00:00 AM EDT - 03/26/2021 12:00:00 AM EDT [facility] ([facility]) Extended Individual Psychotherapy - 45 min 12:00:00 AM EDT [facility] ([facility]) INCISION & DRAINAGE ABSCESS SIMPLE/SINGLE 03/06/2021 1 2:00:00 AM EDT [facility] ([facility] OFFICE OUTPATIENT VISIT 15 MINUTES 03/06/2021 12:00:00 AM EDT [facility] ([facility] Extended Individual Psychotherapy - 45 min 02/26/2021 12:00:00 AM EDT - 02/26/2021 12:00:00 AM EDT [facility] ([facility]) Extended Individual Psychotherapy - 45 min 12:00:00 AM EDT [facility] ([facility]) Brief Individual Psychotherapy - 30 min 02/07/2021 12:00:00 AM EDT - 02/07/2021 12:00:00 AM EDT [facility] ([facility]) Brief Individual Psychotherapy - 30 min 02/07/2021 12: 00:00 AM EDT [facility] ([facility]) [id number]"Psychotherapy 12:00:00 AM EDT - 01/18/2021 12:00:00 AM EDT [facility] ([facility]) [id number]"Psychotherapy 01/18/2021 12:00:00 AM EDT [facility] ([facility]) Extended Individual Psychotherapy - 45 min 12/28/2020 12:00:00 AM EDT - 12/28/2020 12:00:00 AM EDT [facility] ([facility]) Extended Individual Psychotherapy - 45 min 12:00:00 AM EDT [facility] ([facility]) MHC Telemed E/M Lvl 3--Est pt 12/11/2020 12:00:00 AM EST - 12/11/2020 12:00:00 AM EST [facility] ([facility]) Telemed A/O 30" 12/11/2020 12:00:00 AM EST [facility] ([facility]) MHC Telemed E/M Lvl 3--Est pt 12/11/2020 12:00:[address] [facility] ([facility]) Extended Individual Psychotherapy - 45 min 12/07/2020 12:00:00 AM EST - 12/07/2020 12:00:00 AM EST [facility] ([facility]) Extended Individual Psychotherapy - 45 min 12:00:00 AM EST [facility] ([facility]) TEMPMHCTelemed 30" Psychotherapy 021 12:00:00 AM EST - 11/07/2020 12:00:00 AM EST [facility] ([facility]) TEMPMHCTelemed 30" Psychotherapy 11/07/2020 12:00:00 A M EST [facility] ([facility]) OFFICE OUTPATIENT VISIT 15 MINUTES 10/25 12:00:00 AM EST - 10/25/2020 12:00:00 AM EST [facility] ([facility]) Psychotherapy ADD ON - 30 Minutes 10/25/2020 12:00:00 AM EST [facility] ([facility]) OFFICE OUTPATIENT VISIT 15 MINUTES 10/25/2020 12:00:00 AM EST [facility] ([facility]) Extended Individual Psychotherapy - 45 min 10/20/2020 12:00:00 AM EST - 10/20/2020 12:00:00 AM EST [facility] ([facility]) Extended Individual Psychotherapy - 45 min 1 12:00:00 AM EST [facility] ([facility]) Extended Individual Psychotherapy - 45 min 09/28/2020 12:00:00 AM EST - 09/28/2020 12:00:00 AM EST [facility] ([facility]) Extended Individual Psychotherapy - 45 min 0 12:00:00 AM EST [facility] ([facility]) INCISION & DRAINAGE ABSCESS SIMPLE/SINGLE 09/25/2020 1 2:00:00 AM EST [facility] ([facility] INCISION & DRAINAGE ABSCESS SIMPLE/SINGLE 09/25/2020 1 2:00:00 AM EST [facility] ([facility] OFFICE OUTPATIENT VISIT 15 MINUTES 09/21 12:00:00 AM EST - 09/21/2020 12:00:00 AM EST [facility] ([facility]) Psychotherapy ADD ON - 30 Minutes 09/21/2020 12:00:00 AM EST [facility] ([facility]) OFFICE OUTPATIENT VISIT 15 MINUTES 09/21/2020 12:00:00 AM EST [facility] ([facility]) Extended Individual Psychotherapy - 45 min 09/11/2020 12:00:00 AM EST - 09/11/2020 12:00:00 AM EST [facility] ([facility]) Extended Individual Psychotherapy - 45 min 0 12:00:00 AM EST [facility] ([facility]) OFFICE OUTPATIENT VISIT 15 MINUTES 08/24 12:00:00 AM EST - 08/24/2020 12:00:00 AM EST [facility] ([facility]) Psychotherapy ADD ON - 30 Minutes 08/24/2020 12:00:00 AM EST [facility] ([facility]) OFFICE OUTPATIENT VISIT 15 MINUTES 08/24/2020 12:00:00 AM EST [facility] ([facility]) Brief Individual Psychotherapy - 30 min 08/17/2020 12:00:00 AM EST - 08/17/2020 12:00:00 AM EST [facility] ([facility]) Brief Individual Psychotherapy - 30 min 08/17/2020 12: 00:00 AM EST [facility] ([facility]) MHC Telemed E/M Lvl 3--Est pt 07/25/2020 12:00:00 AM EDT - 07/25/2020 12:00:00 AM EDT [facility] ([facility]) Telemed A/O 30" 07/25/2020 12:00:00 AM EDT [facility] ([facility]) MHC Telemed E/M Lvl 3--Est pt 07/25/2020 12:00:00 AM E DT [facility] ([facility]) Brief Individual Psychotherapy - 30 min 07/20/2020 12:00:00 AM EDT - 07/20/2020 12:00:00 AM EDT [facility] ([facility]) Brief Individual Psychotherapy - 30 min 07/20/2020 12: 00:00 AM EDT [facility] ([facility]) TEMPMHCTelemed 30" Psychotherapy 020 12:00:00 AM EDT - 07/06/2020 12:00:00 AM EDT [facility] ([facility]) TEMPMHCTelemed 30" Psychotherapy 07/06/2020 12:00:00 A M EDT [facility] ([facility]) Results ID Date Data Source [id number] 05/18/2021 08:31:00 PM EDT [facility] ([facility]) Name Value Range Interpretation Code Description Data Becky rce(s) Supporting Document(s) lipase 195 U/L 73-393 Lipase [facility] ([facility]) ID Date Data Source [id number] 05/18/2021 08:31:00 PM EDT [facility] ([facility]) Name Value Range Interpretation Code Description Data Becky rce(s) Supporting Document(s) glucose, fasting 159 mg/dL 70-100 Above high normal Glucose, Fas ting JEFF ([facility]) glomerular filtration rate > 60.0 >60 Glomerula r Filtration Rate JEFF ([facility]) creatinine for GFR 0.93 mg/dL 0.70-1.30 Creatinine for GF R JEFF ([facility]) blood urea nitrogen 9 mg/dL 7-18 Blood Urea Nitro gen JEFF ([facility]) potassium serum 3.9 mEq/L 3.5-5.1 Potassium Serum [facility]) sodium level 137 mEq/L 136-145 Sodium Level [facility] ([facility]) chloride level 104 mEq/L 98-107 Chloride Level [facility]AN ([facility]) carbon dioxide level 28 mEq/L 21-32 Carbon Dioxide Level [facility]AN ([facility]) calcium level 8.2 mg/dL 8.5-10.1 Below low normal Calcium Level AT [facility]) anion gap 5 mEq/L 8-16 Below low normal Anion Gap [facility] ( [facility]) ID Date Data Source [id number] 05/18/2021 08:31:00 PM EDT [facility] ([facility]) Name Value Range Interpretation Code Description Data Becky rce(s) Supporting Document(s) ALT/SGPT 36 U/L 12-78 ALT/SGPT JEFF ([facility]) AST/SGOT 19 U/L 7-37 AST/SGOT [place] ([facility]) bilirubin,total 0.4 mg/dL 0.2-1.0 Bilirubin,[facility] alkaline phosphatase 75 U/L 45-117 Alkaline Phosph atase [place] ([facility]) bilirubin,direct 0.1 mg/dL 0.0-0.2 Bilirubin,direct AT [facility]) albumin 3.6 gm/dL 3.2-5.2 Albumin JEFF ([facility]) total protein 7.0 gm/dL 6.4-8.2 Total Protein JEFF ( [facility]) albumin/globulin ratio Albumin/globu bianca Ratio JEFF ([facility]) ID Date Data Source [id number] 05/18/2021 08:31:00 PM EDT JEFF ([facility]) Name Value Range Interpretation Code Description Data Becky rce(s) Supporting Document(s) red blood count 5.35 10 4.30-6.10 Red Blood Count ATHE ([facility]) white blood count 6.3 10 4.0-10.0 White Blood Count JEFF ([facility]) hemoglobin 15.7 g/dL 13.5-17.5 Hemoglobin JEFF ([facility]) hematocrit 46.9 % 42.0-52.0 Hematocrit JEFF ([facility]) mean corpuscular volume 87.7 fL 80.0-96.0 Mean Corpusc ular Volume JEFF ([facility]) mean corpuscular hemoglobin 29.3 pg 27.0-33.0 Mean Cor puscular Hemoglobin JEFF ([facility]) mean corpuscular HGB conc 33.5 g/dL 32.0-36.5 Mean Corpu scular HGB Conc SULLIVAN ([facility]) red cell distribution width 13.3 % 11.5-14.5 Red Cell Distribution Width JEFF ([facility]) platelet count, automated 190 10 150-450 Platelet C ount, Automated JEFF ([facility]) neutrophils % 57.8 % 36.0-66.0 Neutrophils % JEFF ( [facility]) mono % 8.4 % 2.0-8.0 Above high normal [place] % JEFF ([facility]) lymph % 23.9 % 24.0-44.0 Below low normal Lymph % JEFF ( [facility]) eos % 6.5 % 0.0-3.0 Above high normal Eos % JEFF ([facility]) baso % 1.3 % 0.0-1.0 Above high normal Baso % JEFF ([facility]) immature granulocyte % 2.1 % 0-3.0 Immature Gran ulocyte % JEFF ([facility]) nucleated red blood cell % 0.0 % 0-0 Nucleated Red Blood Cell % JEFF ([facility]) neutrophils # 3.7 10 1.5-8.5 Neutrophils # JEFF ( [facility]) lymph # 1.5 10 1.5-5.0 Lymph # JEFF ([facility]) mono # 0.5 10 0.0-0.8 [place] # JEFF ([facility]) eos # 0.4 10 0.0-0.5 Eos # JEFF ([facility]) baso # 0.1 10 0.0-0.2 Baso # JEFF ([facility]) ID Date Data Source [id number] 05/18/2021 08:31:00 PM EDT S[place]AN ([facility]) Name Value Range Interpretation Code Description Data Becky rce(s) Supporting Document(s) lipase 195 U/L 73-393 Lipase S[place]AN ([facility]) ID Date Data Source [id number] 05/18/2021 08:31:00 PM EDT [facility]) Name Value Range Interpretation Code Description Data Becky rce(s) Supporting Document(s) glucose, fasting 159 mg/dL 70-100 Above high normal Glucose, Fas ting JEFF ([facility]) blood urea nitrogen 9 mg/dL 7-18 Blood Urea Nitro gen JEFF ([facility]) creatinine for GFR 0.93 mg/dL 0.70-1.30 Creatinine for GF R JEFF ([facility]) glomerular filtration rate > 60.0 >60 Glomerula r Filtration Rate JEFF ([facility]) potassium serum 3.9 mEq/L 3.5-5.1 Potassium Serum ATH NA ([facility]) sodium level 137 mEq/L 136-145 Sodium Level JEFF ([facility]) chloride level 104 mEq/L 98-107 Chloride Level JEFF ([facility]) carbon dioxide level 28 mEq/L 21-32 Carbon Dioxide Level JEFF ([facility]) calcium level 8.2 mg/dL 8.5-10.1 Below low normal Calcium Level AT [facility] ([facility]) anion gap 5 mEq/L 8-16 Below low normal Anion Gap JEFF ( [facility]) ID Date Data Source [id number] 05/18/2021 08:31:00 PM EDT JEFF ([facility]) Name Value Range Interpretation Code Description Data Becky rce(s) Supporting Document(s) AST/SGOT 19 U/L 7-37 AST/SGOT JEFF ([facility]) ALT/SGPT 36 U/L 12-78 ALT/SGPT JEFF ([facility]) bilirubin,total 0.4 mg/dL 0.2-1.0 Bilirubin,total ATHE ([facility]) alkaline phosphatase 75 U/L 45-117 Alkaline Phosph atase JEFF ([facility]) bilirubin,direct 0.1 mg/dL 0.0-0.2 Bilirubin,direct AT [facility] ([facility]) total protein 7.0 gm/dL 6.4-8.2 Total Protein JEFF ( [facility]) albumin/globulin ratio Albumin/globu bianca Ratio JEFF ([facility]) albumin 3.6 gm/dL 3.2-5.2 Albumin JEFF ([facility]) ID Date Data Source [id number] 05/18/2021 08:31:00 PM EDT JEFF ([facility]) Name Value Range Interpretation Code Description Data Becky rce(s) Supporting Document(s) white blood count 6.3 10 4.0-10.0 White Blood Count JEFF ([facility]) red blood count 5.35 10 4.30-6.10 Red Blood Count ATHE NA ([facility]) hemoglobin 15.7 g/dL 13.5-17.5 Hemoglobin JEFF ([facility]) mean corpuscular volume 87.7 fL 80.0-96.0 Mean Corpusc ular Volume JEFF ([facility]) hematocrit 46.9 % 42.0-52.0 Hematocrit JEFF ([facility]) mean corpuscular hemoglobin 29.3 pg 27.0-33.0 Mean Cor puscular Hemoglobin JEFF ([facility]) mean corpuscular HGB conc 33.5 g/dL 32.0-36.5 Mean Corpu scular HGB Conc JEFF ([facility]) red cell distribution width 13.3 % 11.5-14.5 Red Cell Distribution Width JEFF ([facility]) neutrophils % 57.8 % 36.0-66.0 Neutrophils % SULLIVAN ( [facility]) platelet count, automated 190 10 150-450 Platelet C ount, Automated JEFF ([facility]) lymph % 23.9 % 24.0-44.0 Below low normal Lymph % JEFF ( [facility]) mono % 8.4 % 2.0-8.0 Above high normal [place] % JEFF ([facility]) eos % 6.5 % 0.0-3.0 Above high normal Eos % [place]AN ([facility]) immature granulocyte % 2.1 % 0-3.0 Immature Gran ulocyte % S[place]AN ([facility]) baso % 1.3 % 0.0-1.0 Above high normal Baso % JEFF ([facility]) nucleated red blood cell % 0.0 % 0-0 Nucleated Red Blood Cell % JEFF ([facility]) neutrophils # 3.7 10 1.5-8.5 Neutrophils # JEFF ( [facility]) lymph # 1.5 10 1.5-5.0 Lymph # JEFF ([facility]) mono # 0.5 10 0.0-0.8 [place] # JEFF ([facility]) baso # 0.1 10 0.0-0.2 Baso # JEFF ([facility]) eos # 0.4 10 0.0-0.5 Eos # JEFF ([facility]) ID Date Data Source [id number] 03/27/2021 10:41:00 AM EDT [facility]) Name Value Range Interpretation Code Description Data Becky rce(s) Supporting Document(s) Hemoglobin A1c/Hemoglobin.total in Blood 7.5 % Abnormal (applies to non- numeric results) Hba1C JEFF ([facility]) ID Date Data Source [id number] 03/27/2021 10:41:00 [facility] Name Value Range Interpretation Code Description Data Becky rce(s) Supporting Document(s) Hemoglobin A1c/Hemoglobin.total in Blood 7.5 % Abnormal (applies to non- numeric results) Hba1C [place] ([facility]) ID Date Data Source [id number] 03/27/2021 10:41:00 AM EDT [facility]) Name Value Range Interpretation Code Description Data Becky rce(s) Supporting Document(s) Hemoglobin A1c/Hemoglobin.total in Blood 7.5 % Abnormal (applies to non- numeric results) Hba1C JEFF ([facility]) ID Date Data Source [id number] 03/22/2021 12:00:00 AM EDT [facility]) Name Value Range Interpretation Code Description Data Becky rce(s) Supporting Document(s) Right Eye Incomplete - Unable to Capture Image Right Eye JEFF ([facility]) Left Eye Incomplete - Unable to Capture Image Left Eye [place]AN ([facility]) Ophthalmology Consult Not Ordered - Unable to Complete Exam Ophthalmology Consult [facility]) ID Date Data Source [id number] 03/22/2021 12:00:00 AM EDT [facility]) Name Value Range Interpretation Code Description Data Becky rce(s) Supporting Document(s) Right Eye Incomplete - Unable to Capture Image Right Eye JEFF ([facility]) Ophthalmology Consult Not Ordered - Unable to Complete Exam Ophthalmology Consult JEFF ([facility]) Left Eye Incomplete - Unable to Capture Image Left Eye JEFF ([facility]) ID Date Data Source [id number] 03/22/2021 12:00:00 AM EDT [facility]) Name Value Range Interpretation Code Description Data Becky rce(s) Supporting Document(s) Right Eye Incomplete - Unable to Capture Image Right Eye JEFF ([facility]) Ophthalmology Consult Not Ordered - Unable to Complete Exam Ophthalmology Consult S[place]AN ([facility]) Left Eye Incomplete - Unable to Capture Image Left Eye [place] ([facility]) ID Date Data Source [id number] 03/22/2021 12:00:00 AM EDT [facility]) Name Value Range Interpretation Code Description Data Becky rce(s) Supporting Document(s) Left Eye Incomplete - Unable to Capture Image Left Eye JEFF ([facility]) Right Eye Incomplete - Unable to Capture Image Right Eye S[place] ([facility]) Ophthalmology Consult Not Ordered - Unable to Complete Exam Ophthalmology Consult [place]AN ([facility]) ID Date Data Source [id number] 03/22/2021 12:00:00 AM EDT [place] ([facility]) Name Value Range Interpretation Code Description Data Becky rce(s) Supporting Document(s) Right Eye Incomplete - Unable to Capture Image Right Eye JEFF ([facility]) Left Eye Incomplete - Unable to Capture Image Left Eye JEFF ([facility]) Ophthalmology Consult Not Ordered - Unable to Complete Exam Ophthalmology Consult S[place]AN ([facility]) ID Date Data Source [id number] 01/26/2021 03:20:00 AM EDT [facility] Name Value Range Interpretation Code Description Data Becky rce(s) Supporting Document(s) SARS-CoV-2 (COVID 19) NEGATIVE - SARS-CoV-2 (COVID19) [facility] This lab was ordered by [facility] a nd reported by [facility]. ID Date Data Source [id number] 11/15/2020 03:50:00 PM EST [facility] ([facility]) Name Value Range Interpretation Code Description Data Becky rce(s) Supporting Document(s) Hemoglobin A1c/Hemoglobin.total in Blood 7.6 [facility] ([facility]) Glucose [Mass/volume] in Serum or Plasma 128 [facility] ([facility]) ID Date Data Source [id number] 09/18/2020 09:39:00 AM EST [place] ([facility]) Name Value Range Interpretation Code Description Data Becky rce(s) Supporting Document(s) cholesterol level 211 mg/dL <200 Above high normal Cholesterol Level JEFF ([facility]) triglycerides level 677 mg/dL <150 Above high normal Triglycer ides Level SULLIVAN ([facility]) non-HDL-C 179 mg/dL Non-hdl-c JEFF ([facility]) HDL cholesterol 32 mg/dL >40 Below low normal HDL Cholestero l JEFF ([facility]) cholesterol risk ratio <5 Above high normal Choles terol Risk Ratio S[place]AN ([facility]) ID Date Data Source [id number] 09/18/2020 09:39:00 AM EST [place] ([facility]) Name Value Range Interpretation Code Description Data Becky rce(s) Supporting Document(s) glucose, fasting 145 mg/dL 70-100 Above high normal Glucose, Fas ting JEFF ([facility]) creatinine for GFR 1.20 mg/dL 0.70-1.30 Creatinine for GF R JEFF ([facility]) blood urea nitrogen 19 mg/dL 7-18 Above high normal Blood Ure a Nitrogen JEFF ([facility]) glomerular filtration rate > 60.0 >60 Glomerula r Filtration Rate JEFF ([facility]) potassium serum 4.1 mEq/L 3.5-5.1 Potassium Serum ATHE NA ([facility]) chloride level 103 mEq/L 98-107 Chloride Level JEFF ([facility]) sodium level 137 mEq/L 136-145 Sodium Level JEFF ([facility]) anion gap 5 mEq/L 8-16 Below low normal Anion Gap JEFF ( [facility]) carbon dioxide level 29 mEq/L 21-32 Carbon Dioxide Level JEFF ([facility]) calcium level 9.0 mg/dL 8.5-10.1 Calcium Level JEFF ( [facility]) ALT/SGPT 38 U/L 12-78 ALT/SGPT JEFF ([facility]) AST/SGOT 16 U/L 7-37 AST/SGOT JEFF ([facility]) total protein 7.6 gm/dL 6.4-8.2 Total Protein JEFF ( [facility]) alkaline phosphatase 82 U/L 45-117 Alkaline Phosph atase JEFF ([facility]) bilirubin,total 0.4 mg/dL 0.2-1.0 Bilirubin,total ATHE NA ([facility]) albumin/globulin ratio Albumin/globu bianca Ratio JEFF ([facility]) albumin 4.0 gm/dL 3.2-5.2 Albumin JEFF ([facility]) ID Date Data Source [id number] 09/18/2020 09:39:00 AM EST JEFF ([facility]) Name Value Range Interpretation Code Description Data Becky rce(s) Supporting Document(s) cholesterol level 211 mg/dL <200 Above high normal Cholesterol Level JEFF ([facility]) HDL cholesterol 32 mg/dL >40 Below low normal HDL Cholestero l JEFF ([facility]) triglycerides level 677 mg/dL <150 Above high normal Triglycer ides Level JEFF ([facility]) non-HDL-C 179 mg/dL Non-hdl-c JEFF ([facility]) cholesterol risk ratio <5 Above high normal Choles terol Risk Ratio JEFF ([facility]) ID Date Data Source [id number] 09/18/2020 09:39:00 AM EST JEFF ([facility]) Name Value Range Interpretation Code Description Data Becky rce(s) Supporting Document(s) glucose, fasting 145 mg/dL 70-100 Above high normal Glucose, Fas ting JEFF ([facility]) blood urea nitrogen 19 mg/dL 7-18 Above high normal Blood Ure a Nitrogen JEFF ([facility]) creatinine for GFR 1.20 mg/dL 0.70-1.30 Creatinine for GF R JEFF ([facility]) glomerular filtration rate > 60.0 >60 Glomerula r Filtration Rate JEFF ([facility]) sodium level 137 mEq/L 136-145 Sodium Level JEFF (No [facility]) potassium serum 4.1 mEq/L 3.5-5.1 Potassium Serum ATHE NA ([facility]) chloride level 103 mEq/L 98-107 Chloride Level S[place]AN ([facility]) anion gap 5 mEq/L 8-16 Below low normal Anion Gap JEFF ( [facility]) carbon dioxide level 29 mEq/L 21-32 Carbon Dioxide Level JEFF ([facility]) calcium level 9.0 mg/dL 8.5-10.1 Calcium Level JEFF ( [facility]) AST/SGOT 16 U/L 7-37 AST/SGOT JEFF ([facility]) ALT/SGPT 38 U/L 12-78 ALT/SGPT JEFF ([facility]) alkaline phosphatase 82 U/L 45-117 Alkaline Phosph atase JEFF ([facility]) total protein 7.6 gm/dL 6.4-8.2 Total Protein JEFF ( [facility]) bilirubin,total 0.4 mg/dL 0.2-1.0 Bilirubin,total ATHE ([facility]) albumin 4.0 gm/dL 3.2-5.2 Albumin JEFF ([facility]) albumin/globulin ratio Albumin/globu bianca Ratio JEFF ([facility]) ID Date Data Source [id number] 09/18/2020 09:39:00 AM EST JEFF ([facility]) Name Value Range Interpretation Code Description Data Becky rce(s) Supporting Document(s) triglycerides level 677 mg/dL <150 Above high normal Triglycer ides Level JEFF ([facility]) cholesterol level 211 mg/dL <200 Above high normal Cholesterol Level JEFF ([facility]) non-HDL-C 179 mg/dL Non-hdl-c JEFF ([facility]) HDL cholesterol 32 mg/dL >40 Below low normal HDL Cholestero l JEFF ([facility]) cholesterol risk ratio <5 Above high normal Choles terol Risk Ratio JEFF ([facility]) ID Date Data Source [id number] 09/18/2020 09:39:00 AM EST JEFF ([facility]) Name Value Range Interpretation Code Description Data Becky rce(s) Supporting Document(s) glucose, fasting 145 mg/dL 70-100 Above high normal Glucose, Fas ting JEFF ([facility]) creatinine for GFR 1.20 mg/dL 0.70-1.30 Creatinine for GF R JEFF ([facility]) blood urea nitrogen 19 mg/dL 7-18 Above high normal Blood Ure a Nitrogen JEFF ([facility]) glomerular filtration rate > 60.0 >60 Glomerula r Filtration Rate JEFF ([facility]) potassium serum 4.1 mEq/L 3.5-5.1 Potassium Serum ATHE NA ([facility]) sodium level 137 mEq/L 136-145 Sodium Level JEFF (No [facility]) carbon dioxide level 29 mEq/L 21-32 Carbon Dioxide Level JEFF ([facility]) chloride level 103 mEq/L 98-107 Chloride Level JEFF ([facility]) AST/SGOT 16 U/L 7-37 AST/SGOT JEFF ([facility]) calcium level 9.0 mg/dL 8.5-10.1 Calcium Level JEFF ( [facility]) anion gap 5 mEq/L 8-16 Below low normal Anion Gap JEFF ( [facility]) bilirubin,total 0.4 mg/dL 0.2-1.0 Bilirubin,total ATHE NA ([facility]) ALT/SGPT 38 U/L 12-78 ALT/SGPT JEFF ([facility]) alkaline phosphatase 82 U/L 45-117 Alkaline Phosph atase JEFF ([facility]) albumin/globulin ratio Albumin/globu bianca Ratio JEFF ([facility]) total protein 7.6 gm/dL 6.4-8.2 Total Protein JEFF ( [facility]) albumin 4.0 gm/dL 3.2-5.2 Albumin JEFF ([facility]) ID Date Data Source [id number] 09/18/2020 09:39:00 AM EST JEFF ([facility]) Name Value Range Interpretation Code Description Data Becky rce(s) Supporting Document(s) triglycerides level 677 mg/dL <150 Above high normal Triglycer ides Level JEFF ([facility]) cholesterol level 211 mg/dL <200 Above high normal Cholesterol Level JEFF ([facility]) cholesterol risk ratio <5 Above high normal Choles terol Risk Ratio JEFF ([facility]) HDL cholesterol 32 mg/dL >40 Below low normal HDL Cholestero l JEFF ([facility]) non-HDL-C 179 mg/dL Non-hdl-c JEFF ([facility]) ID Date Data Source [id number] 09/18/2020 09:39:00 AM EST JEFF ([facility]) Name Value Range Interpretation Code Description Data Becky rce(s) Supporting Document(s) glucose, fasting 145 mg/dL 70-100 Above high normal Glucose, Fas ting JEFF ([facility]) blood urea nitrogen 19 mg/dL 7-18 Above high normal Blood Ure a Nitrogen JEFF ([facility]) creatinine for GFR 1.20 mg/dL 0.70-1.30 Creatinine for GF R JEFF ([facility]) sodium level 137 mEq/L 136-145 Sodium Level JEFF ([facility]) glomerular filtration rate > 60.0 >60 Glomerula r Filtration Rate JEFF ([facility]) carbon dioxide level 29 mEq/L 21-32 Carbon Dioxide Level JEFF ([facility]) potassium serum 4.1 mEq/L 3.5-5.1 Potassium Serum ATHE NA ([facility]) chloride level 103 mEq/L 98-107 Chloride Level JEFF ([facility]) anion gap 5 mEq/L 8-16 Below low normal Anion Gap JEFF ( [facility]) calcium level 9.0 mg/dL 8.5-10.1 Calcium Level JEFF ( [facility]) ALT/SGPT 38 U/L 12-78 ALT/SGPT JEFF ([facility]) AST/SGOT 16 U/L 7-37 AST/SGOT JEFF ([facility]) alkaline phosphatase 82 U/L 45-117 Alkaline Phosph atase JEFF ([facility]) bilirubin,total 0.4 mg/dL 0.2-1.0 Bilirubin,total ATHE ([facility]) albumin/globulin ratio Albumin/globu bianca Ratio JEFF ([facility]) total protein 7.6 gm/dL 6.4-8.2 Total Protein JEFF ( [facility]) albumin 4.0 gm/dL 3.2-5.2 Albumin JEFF ([facility]) ID Date Data Source [id number] 09/18/2020 09:39:00 AM EST JEFF ([facility]) Name Value Range Interpretation Code Description Data Becky rce(s) Supporting Document(s) triglycerides level 677 mg/dL <150 Above high normal Triglycer ides Level JEFF ([facility]) HDL cholesterol 32 mg/dL >40 Below low normal HDL Cholestero l JEFF ([facility]) cholesterol level 211 mg/dL <200 Above high normal Cholesterol Level JEFF ([facility]) non-HDL-C 179 mg/dL Non-hdl-c JEFF ([facility]) cholesterol risk ratio <5 Above high normal Choles terol Risk Ratio JEFF ([facility]) ID Date Data Source [id number] 09/18/2020 09:39:00 AM EST JEFF ([facility]) Name Value Range Interpretation Code Description Data Becky rce(s) Supporting Document(s) glucose, fasting 145 mg/dL 70-100 Above high normal Glucose, Fas ting JEFF ([facility]) creatinine for GFR 1.20 mg/dL 0.70-1.30 Creatinine for GF R JEFF ([facility]) blood urea nitrogen 19 mg/dL 7-18 Above high normal Blood Ure a Nitrogen JEFF ([facility]) glomerular filtration rate > 60.0 >60 Glomerula r Filtration Rate JEFF ([facility]) sodium level 137 mEq/L 136-145 Sodium Level JEFF (No [facility]) potassium serum 4.1 mEq/L 3.5-5.1 Potassium Serum ATHE NA ([facility]) carbon dioxide level 29 mEq/L 21-32 Carbon Dioxide Level JEFF ([facility]) anion gap 5 mEq/L 8-16 Below low normal Anion Gap JEFF ( [facility]) chloride level 103 mEq/L 98-107 Chloride Level JEFF ([facility]) ALT/SGPT 38 U/L 12-78 ALT/SGPT JEFF ([facility]) calcium level 9.0 mg/dL 8.5-10.1 Calcium Level JEFF ( [facility]) AST/SGOT 16 U/L 7-37 AST/SGOT JEFF ([facility]) total protein 7.6 gm/dL 6.4-8.2 Total Protein JEFF ( [facility]) alkaline phosphatase 82 U/L 45-117 Alkaline Phosph atase JEFF ([facility]) bilirubin,total 0.4 mg/dL 0.2-1.0 Bilirubin,total ATHE ([facility]) albumin 4.0 gm/dL 3.2-5.2 Albumin JEFF ([facility]) albumin/globulin ratio Albumin/globu bianca Ratio JEFF ([facility]) ID Date Data Source [id number] 09/18/2020 09:39:00 AM EST JEFF ([facility]) Name Value Range Interpretation Code Description Data Becky rce(s) Supporting Document(s) triglycerides level 677 mg/dL <150 Above high normal Triglycer ides Level JEFF ([facility]) cholesterol level 211 mg/dL <200 Above high normal Cholesterol Level JEFF ([facility]) HDL cholesterol 32 mg/dL >40 Below low normal HDL Cholestero l JEFF ([facility]) cholesterol risk ratio <5 Above high normal Choles terol Risk Ratio JEFF ([facility]) non-HDL-C 179 mg/dL Non-hdl-c JEFF ([facility]) ID Date Data Source [id number] 09/18/2020 09:39:00 AM EST JEFF ([facility]) Name Value Range Interpretation Code Description Data Becky rce(s) Supporting Document(s) glucose, fasting 145 mg/dL 70-100 Above high normal Glucose, Fas ting JEFF ([facility]) blood urea nitrogen 19 mg/dL 7-18 Above high normal Blood Ure a Nitrogen JEFF ([facility]) creatinine for GFR 1.20 mg/dL 0.70-1.30 Creatinine for GF R JEFF ([facility]) glomerular filtration rate > 60.0 >60 Glomerula r Filtration Rate JEFF ([facility]) sodium level 137 mEq/L 136-145 Sodium Level JEFF ([facility]) potassium serum 4.1 mEq/L 3.5-5.1 Potassium Serum ATHE ([facility]) anion gap 5 mEq/L 8-16 Below low normal Anion Gap JEFF ( [facility]) chloride level 103 mEq/L 98-107 Chloride Level JEFF ([facility]) carbon dioxide level 29 mEq/L 21-32 Carbon Dioxide Level JEFF ([facility]) AST/SGOT 16 U/L 7-37 AST/SGOT JEFF ([facility]) calcium level 9.0 mg/dL 8.5-10.1 Calcium Level JEFF ( [facility]) ALT/SGPT 38 U/L 12-78 ALT/SGPT JEFF ([facility]) alkaline phosphatase 82 U/L 45-117 Alkaline Phosph atase JEFF ([facility]) bilirubin,total 0.4 mg/dL 0.2-1.0 Bilirubin,total ATHE NA ([facility]) albumin 4.0 gm/dL 3.2-5.2 Albumin JEFF ([facility]) total protein 7.6 gm/dL 6.4-8.2 Total Protein JEFF ( [facility]) albumin/globulin ratio Albumin/globu bianca Ratio JEFF ([facility]) ID Date Data Source [id number] 09/18/2020 09:39:00 AM EST JEFF ([facility]) Name Value Range Interpretation Code Description Data Becky rce(s) Supporting Document(s) HDL cholesterol 32 mg/dL >40 Below low normal HDL Cholestero l JEFF ([facility]) triglycerides level 677 mg/dL <150 Above high normal Triglycer ides Level JEFF ([facility]) cholesterol level 211 mg/dL <200 Above high normal Cholesterol Level JEFF ([facility]) non-HDL-C 179 mg/dL Non-hdl-c JEFF ([facility]) cholesterol risk ratio <5 Above high normal Choles terol Risk Ratio JEFF ([facility]) ID Date Data Source [id number] 09/18/2020 09:39:00 AM EST JEFF ([facility]) Name Value Range Interpretation Code Description Data Becky rce(s) Supporting Document(s) glucose, fasting 145 mg/dL 70-100 Above high normal Glucose, Fas ting JEFF ([facility]) glomerular filtration rate > 60.0 >60 Glomerula r Filtration Rate JEFF ([facility]) blood urea nitrogen 19 mg/dL 7-18 Above high normal Blood Ure a Nitrogen JEFF ([facility]) creatinine for GFR 1.20 mg/dL 0.70-1.30 Creatinine for GF R JEFF ([facility]) chloride level 103 mEq/L 98-107 Chloride Level JEFF ([facility]) sodium level 137 mEq/L 136-145 Sodium Level JEFF (No [facility]) potassium serum 4.1 mEq/L 3.5-5.1 Potassium Serum ATHE NA ([facility]) carbon dioxide level 29 mEq/L 21-32 Carbon Dioxide Level JEFF ([facility]) anion gap 5 mEq/L 8-16 Below low normal Anion Gap JEFF ( [facility]) calcium level 9.0 mg/dL 8.5-10.1 Calcium Level JEFF ( [facility]) alkaline phosphatase 82 U/L 45-117 Alkaline Phosph atase JEFF ([facility]) ALT/SGPT 38 U/L 12-78 ALT/SGPT JEFF ([facility]) AST/SGOT 16 U/L 7-37 AST/SGOT JEFF ([facility]) albumin 4.0 gm/dL 3.2-5.2 Albumin JEFF ([facility]) total protein 7.6 gm/dL 6.4-8.2 Total Protein JEFF ( [facility]) bilirubin,total 0.4 mg/dL 0.2-1.0 Bilirubin,total ATHE ([facility]) albumin/globulin ratio Albumin/globu bianca Ratio JEFF ([facility]) ID Date Data Source [id number] 09/18/2020 09:39:00 AM EST [facility] ([facility]) Name Value Range Interpretation Code Description Data Becky rce(s) Supporting Document(s) Glucose, Fasting 145 mg/dL 70-100 [facility] ([facility]) Blood Urea Nitrogen 19 mg/dL 7-18 [facility] ([facility]) Creatinine For GFR 1.20 mg/dL 0.70-1.30 [facility] ([facility]) Glomerular Filtration Rate Laboratory test result [facility] ([facility]) <content>Units are mL/min/1.73 m2</content>
<content></content>
<content>Chronic Kidney Disease Staging per NKF:</content>
<content></content>
<content>Stage I & II GFR >=60 Normal to Mildly Decreased</content>
<content>Stage III GFR 30- 59 Moderately Decreased</content>
<content>Stage IV GFR 15-29 Severely Decreased</content>
<content>Stage V GFR <15 Very Little GFR Left</content>
<content>ESRD GFR <15 on MACHINE BANDER AND CELLOPHANER</content>
<content></content> Potassium Serum 4.1 meq/L 3.5-5.1 [facility] ([facility]) Sodium Level 137 meq/L 136-145 [facility] ([facility]) Carbon Dioxide Level 29 meq/L 21-32 [facility] ( [facility]) Chloride Level 103 meq/L 98-107 [facility] ([facility]) Anion Gap 5 meq/L 8-16 [facility] ([facility]) Alt/SGPT 38 U/L 12-78 [facility] ([facility]) Ast/Sgot 16 U/L 7-37 [facility] ([facility]) Calcium Level 9.0 mg/dL 8.5-10.1 [facility] ([facility]) Bilirubin,Total 0.4 mg/dL 0.2-1.0 [facility] ([facility]) Alkaline Phosphatase 82 U/L 45-117 [facility] ( [facility]) Total Protein 7.6 GM/DL 6.4-8.2 [facility] ([facility]) Albumin 4.0 GM/DL 3.2-5.2 [facility] ([facility]) Albumin/Globulin Ratio 1.1 [facility] ([facility]) ID Date Data Source [id number] 09/18/2020 09:39:00 AM EST [facility] ([facility]) Name Value Range Interpretation Code Description Data Becyk rce(s) Supporting Document(s) Triglycerides Level 677 mg/dL [facility] ([facility]) Cholesterol Level 211 mg/dL [facility] ([facility]) HDL Cholesterol 32 mg/dL [facility] ([facility]) Cholesterol Risk Ratio 6.593 [facility] ([facility]) Non-HDL-C 179 mg/dL [facility] ([facility]) ID Date Data Source [id number] 09/18/2020 09:39:00 AM EST JEFF ([facility]) Name Value Range Interpretation Code Description Data Becky rce(s) Supporting Document(s) cholesterol level 211 mg/dL <200 Above high normal Cholesterol Level JEFF ([facility]) triglycerides level 677 mg/dL <150 Above high normal Triglycer ides Level JEFF ([facility]) HDL cholesterol 32 mg/dL >40 Below low normal HDL Cholestero l JEFF ([facility]) cholesterol risk ratio <5 Above high normal Choles terol Risk Ratio JEFF ([facility]) non-HDL-C 179 mg/dL Non-hdl-c JEFF ([facility]) ID Date Data Source [id number] 09/18/2020 09:39:00 AM EST JEFF ([facility]) Name Value Range Interpretation Code Description Data Becky rce(s) Supporting Document(s) glucose, fasting 145 mg/dL 70-100 Above high normal Glucose, Fas ting JEFF ([facility]) blood urea nitrogen 19 mg/dL 7-18 Above high normal Blood Ure a Nitrogen JEFF ([facility]) creatinine for GFR 1.20 mg/dL 0.70-1.30 Creatinine for GF R JEFF ([facility]) glomerular filtration rate > 60.0 >60 Glomerula r Filtration Rate JEFF ([facility]) sodium level 137 mEq/L 136-145 Sodium Level JEFF ([facility]) chloride level 103 mEq/L 98-107 Chloride Level JEFF ([facility]) potassium serum 4.1 mEq/L 3.5-5.1 Potassium Serum ATHE ([facility]) anion gap 5 mEq/L 8-16 Below low normal Anion Gap JEFF ( [facility]) carbon dioxide level 29 mEq/L 21-32 Carbon Dioxide Level JEFF ([facility]) calcium level 9.0 mg/dL 8.5-10.1 Calcium Level JEFF ( [facility]) AST/SGOT 16 U/L 7-37 AST/SGOT JEFF ([facility]) ALT/SGPT 38 U/L 12-78 ALT/SGPT JEFF ([facility]) bilirubin,total 0.4 mg/dL 0.2-1.0 Bilirubin,total ATHE ([facility]) alkaline phosphatase 82 U/L 45-117 Alkaline Phosph atase JEFF ([facility]) total protein 7.6 gm/dL 6.4-8.2 Total Protein JEFF ( [facility]) albumin/globulin ratio Albumin/globu bianca Ratio JEFF ([facility]) albumin 4.0 gm/dL 3.2-5.2 Albumin JEFF ([facility]) ID Date Data Source [id number] 09/18/2020 09:39:00 AM EST JEFF ([facility]) Name Value Range Interpretation Code Description Data Becky rce(s) Supporting Document(s) triglycerides level 677 mg/dL <150 Above high normal Triglycer ides Level JEFF ([facility]) cholesterol level 211 mg/dL <200 Above high normal Cholesterol Level JEFF ([facility]) HDL cholesterol 32 mg/dL >40 Below low normal HDL Cholestero l JEFF ([facility]) cholesterol risk ratio <5 Above high normal Choles terol Risk Ratio JEFF ([facility]) non-HDL-C 179 mg/dL Non-hdl-c JEFF ([facility]) ID Date Data Source [id number] 09/18/2020 09:39:00 AM EST JEFF ([facility]) Name Value Range Interpretation Code Description Data Becky rce(s) Supporting Document(s) glucose, fasting 145 mg/dL 70-100 Above high normal Glucose, Fas ting JEFF ([facility]) creatinine for GFR 1.20 mg/dL 0.70-1.30 Creatinine for GF R JEFF ([facility]) blood urea nitrogen 19 mg/dL 7-18 Above high normal Blood Ure a Nitrogen JEFF ([facility]) sodium level 137 mEq/L 136-145 Sodium Level JEFF ([facility]) glomerular filtration rate > 60.0 >60 Glomerula r Filtration Rate JEFF ([facility]) potassium serum 4.1 mEq/L 3.5-5.1 Potassium Serum ATHE NA ([facility]) anion gap 5 mEq/L 8-16 Below low normal Anion Gap JEFF ( [facility]) chloride level 103 mEq/L 98-107 Chloride Level JEFF ([facility]) carbon dioxide level 29 mEq/L 21-32 Carbon Dioxide Level JEFF ([facility]) calcium level 9.0 mg/dL 8.5-10.1 Calcium Level JEFF ( [facility]) ALT/SGPT 38 U/L 12-78 ALT/SGPT JEFF ([facility]) AST/SGOT 16 U/L 7-37 AST/SGOT JEFF ([facility]) bilirubin,total 0.4 mg/dL 0.2-1.0 Bilirubin,total ATHE ([facility]) total protein 7.6 gm/dL 6.4-8.2 Total Protein JEFF ( [facility]) alkaline phosphatase 82 U/L 45-117 Alkaline Phosph atase JEFF ([facility]) albumin 4.0 gm/dL 3.2-5.2 Albumin JEFF ([facility]) albumin/globulin ratio Albumin/globu bianca Ratio JEFF ([facility]) ID Date Data Source [id number] 09/18/2020 09:39:00 AM EST JEFF ([facility]) Name Value Range Interpretation Code Description Data Becky rce(s) Supporting Document(s) triglycerides level 677 mg/dL <150 Above high normal Triglycer ides Level JEFF ([facility]) HDL cholesterol 32 mg/dL >40 Below low normal HDL Cholestero l JEFF ([facility]) non-HDL-C 179 mg/dL Non-hdl-c JEFF ([facility]) cholesterol level 211 mg/dL <200 Above high normal Cholesterol Level JEFF ([facility]) cholesterol risk ratio <5 Above high normal Choles terol Risk Ratio JEFF ([facility]) ID Date Data Source [id number] 09/18/2020 09:39:00 AM EST JEFF ([facility]) Name Value Range Interpretation Code Description Data Becky rce(s) Supporting Document(s) glucose, fasting 145 mg/dL 70-100 Above high normal Glucose, Fas ting JEFF ([facility]) blood urea nitrogen 19 mg/dL 7-18 Above high normal Blood Ure a Nitrogen JEFF ([facility]) sodium level 137 mEq/L 136-145 Sodium Level JEFF (No [facility]) glomerular filtration rate > 60.0 >60 Glomerula r Filtration Rate JEFF ([facility]) creatinine for GFR 1.20 mg/dL 0.70-1.30 Creatinine for GF R JEFF ([facility]) potassium serum 4.1 mEq/L 3.5-5.1 Potassium Serum ATHE NA ([facility]) chloride level 103 mEq/L 98-107 Chloride Level JEFF ([facility]) carbon dioxide level 29 mEq/L 21-32 Carbon Dioxide Level JEFF ([facility]) anion gap 5 mEq/L 8-16 Below low normal Anion Gap JEFF ( [facility]) calcium level 9.0 mg/dL 8.5-10.1 Calcium Level JEFF ( [facility]) ALT/SGPT 38 U/L 12-78 ALT/SGPT JEFF ([facility]) alkaline phosphatase 82 U/L 45-117 Alkaline Phosph atase JEFF ([facility]) bilirubin,total 0.4 mg/dL 0.2-1.0 Bilirubin,total ATHE ([facility]) AST/SGOT 16 U/L 7-37 AST/SGOT JEFF ([facility]) albumin 4.0 gm/dL 3.2-5.2 Albumin JEFF ([facility]) total protein 7.6 gm/dL 6.4-8.2 Total Protein JEFF ( [facility]) albumin/globulin ratio Albumin/globu bianca Ratio JEFF ([facility]) ID Date Data Source [id number] 09/18/2020 09:39:00 AM EST JEFF ([facility]) Name Value Range Interpretation Code Description Data Becky rce(s) Supporting Document(s) HDL cholesterol 32 mg/dL >40 Below low normal HDL Cholestero l JEFF ([facility]) cholesterol level 211 mg/dL <200 Above high normal Cholesterol Level JEFF ([facility]) triglycerides level 677 mg/dL <150 Above high normal Triglycer ides Level JEFF ([facility]) non-HDL-C 179 mg/dL Non-hdl-c JEFF ([facility]) cholesterol risk ratio <5 Above high normal Choles terol Risk Ratio JEFF ([facility]) ID Date Data Source [id number] 09/18/2020 09:39:00 AM EST JEFF ([facility]) Name Value Range Interpretation Code Description Data Becky rce(s) Supporting Document(s) glucose, fasting 145 mg/dL 70-100 Above high normal Glucose, Fas ting JEFF ([facility]) blood urea nitrogen 19 mg/dL 7-18 Above high normal Blood Ure a Nitrogen JEFF ([facility]) creatinine for GFR 1.20 mg/dL 0.70-1.30 Creatinine for GF R JEFF ([facility]) glomerular filtration rate > 60.0 >60 Glomerula r Filtration Rate JEFF ([facility]) sodium level 137 mEq/L 136-145 Sodium Level JEFF ([facility]) carbon dioxide level 29 mEq/L 21-32 Carbon Dioxide Level JEFF ([facility]) potassium serum 4.1 mEq/L 3.5-5.1 Potassium Serum ATHE ([facility]) chloride level 103 mEq/L 98-107 Chloride Level SULL[place]AN ([facility]) calcium level 9.0 mg/dL 8.5-10.1 Calcium Level JEFF ( [facility]) AST/SGOT 16 U/L 7-37 AST/SGOT JEFF ([facility]) anion gap 5 mEq/L 8-16 Below low normal Anion Gap JEFF ( [facility]) ALT/SGPT 38 U/L 12-78 ALT/SGPT JEFF ([facility]) alkaline phosphatase 82 U/L 45-117 Alkaline Phosph atase JEFF ([facility]) bilirubin,total 0.4 mg/dL 0.2-1.0 Bilirubin,total ATHE NA ([facility]) total protein 7.6 gm/dL 6.4-8.2 Total Protein JEFF ( [facility]) albumin/globulin ratio Albumin/globu bianca Ratio JEFF ([facility]) albumin 4.0 gm/dL 3.2-5.2 Albumin JEFF ([facility]) ID Date Data Source [id number] 09/18/2020 09:39:00 AM EST JEFF ([facility]) Name Value Range Interpretation Code Description Data Becky rce(s) Supporting Document(s) cholesterol level 211 mg/dL <200 Above high normal Cholesterol Level JEFF ([facility]) triglycerides level 677 mg/dL <150 Above high normal Triglycer ides Level JEFF ([facility]) HDL cholesterol 32 mg/dL >40 Below low normal HDL Cholestero l JEFF ([facility]) non-HDL-C 179 mg/dL Non-hdl-c JEFF ([facility]) cholesterol risk ratio <5 Above high normal Choles terol Risk Ratio JEFF ([facility]) ID Date Data Source [id number] 09/18/2020 09:39:00 AM EST JEFF ([facility]) Name Value Range Interpretation Code Description Data Becky rce(s) Supporting Document(s) blood urea nitrogen 19 mg/dL 7-18 Above high normal Blood Ure a Nitrogen JEFF ([facility]) glucose, fasting 145 mg/dL 70-100 Above high normal Glucose, Fas ting JEFF ([facility]) creatinine for GFR 1.20 mg/dL 0.70-1.30 Creatinine for GF R JEFF ([facility]) glomerular filtration rate > 60.0 >60 Glomerula r Filtration Rate JEFF ([facility]) sodium level 137 mEq/L 136-145 Sodium Level JEFF (No [facility]) chloride level 103 mEq/L 98-107 Chloride Level JEFF ([facility]) potassium serum 4.1 mEq/L 3.5-5.1 Potassium Serum ATHE NA ([facility]) anion gap 5 mEq/L 8-16 Below low normal Anion Gap JEFF ( [facility]) calcium level 9.0 mg/dL 8.5-10.1 Calcium Level JEFF ( [facility]) carbon dioxide level 29 mEq/L 21-32 Carbon Dioxide Level JEFF ([facility]) AST/SGOT 16 U/L 7-37 AST/SGOT JEFF ([facility]) ALT/SGPT 38 U/L 12-78 ALT/SGPT JEFF ([facility]) alkaline phosphatase 82 U/L 45-117 Alkaline Phosph atase JEFF ([facility]) total protein 7.6 gm/dL 6.4-8.2 Total Protein JEFF ( [facility]) bilirubin,total 0.4 mg/dL 0.2-1.0 Bilirubin,total ATHE ([facility]) albumin/globulin ratio Albumin/globu bianca Ratio JEFF ([facility]) albumin 4.0 gm/dL 3.2-5.2 Albumin JEFF ([facility]) ID Date Data Source [id number] 09/18/2020 09:39:00 AM EST JEFF ([facility]) Name Value Range Interpretation Code Description Data Becky rce(s) Supporting Document(s) cholesterol level 211 mg/dL <200 Above high normal Cholesterol Level JEFF ([facility]) triglycerides level 677 mg/dL <150 Above high normal Triglycer ides Level JEFF ([facility]) cholesterol risk ratio <5 Above high normal Choles terol Risk Ratio JEFF ([facility]) non-HDL-C 179 mg/dL Non-hdl-c EJFF ([facility]) HDL cholesterol 32 mg/dL >40 Below low normal HDL Cholestero l JEFF ([facility]) ID Date Data Source [id number] 09/18/2020 09:39:00 AM EST JEFF ([facility]) Name Value Range Interpretation Code Description Data Becky rce(s) Supporting Document(s) glucose, fasting 145 mg/dL 70-100 Above high normal Glucose, Fas ting JEFF ([facility]) creatinine for GFR 1.20 mg/dL 0.70-1.30 Creatinine for GF R JEFF ([facility]) blood urea nitrogen 19 mg/dL 7-18 Above high normal Blood Ure a Nitrogen JEFF ([facility]) potassium serum 4.1 mEq/L 3.5-5.1 Potassium Serum ATHE NA ([facility]) sodium level 137 mEq/L 136-145 Sodium Level JEFF (No [facility]) glomerular filtration rate > 60.0 >60 Glomerula r Filtration Rate JEFF ([facility]) carbon dioxide level 29 mEq/L 21-32 Carbon Dioxide Level JEFF ([facility]) chloride level 103 mEq/L 98-107 Chloride Level JEFF ([facility]) anion gap 5 mEq/L 8-16 Below low normal Anion Gap JEFF ( [facility]) ALT/SGPT 38 U/L 12-78 ALT/SGPT JEFF ([facility]) calcium level 9.0 mg/dL 8.5-10.1 Calcium Level JEFF ( [facility]) AST/SGOT 16 U/L 7-37 AST/SGOT JEFF ([facility]) alkaline phosphatase 82 U/L 45-117 Alkaline Phosph atase JEFF ([facility]) total protein 7.6 gm/dL 6.4-8.2 Total Protein JEFF ( [facility]) bilirubin,total 0.4 mg/dL 0.2-1.0 Bilirubin,total ATHE NA ([facility]) albumin/globulin ratio Albumin/globu bianca Ratio JEFF ([facility]) albumin 4.0 gm/dL 3.2-5.2 Albumin JEFF ([facility]) ID Date Data Source [id number] 09/18/2020 09:39:00 AM EST JEFF ([facility]) Name Value Range Interpretation Code Description Data Becky rce(s) Supporting Document(s) triglycerides level 677 mg/dL <150 Above high normal Triglycer ides Level JEFF ([facility]) cholesterol level 211 mg/dL <200 Above high normal Cholesterol Level JEFF ([facility]) HDL cholesterol 32 mg/dL >40 Below low normal HDL Cholestero l JEFF ([facility]) cholesterol risk ratio <5 Above high normal Choles terol Risk Ratio JEFF ([facility]) non-HDL-C 179 mg/dL Non-hdl-c JEFF ([facility]) ID Date Data Source [id number] 09/18/2020 09:39:00 AM EST JEFF ([facility]) Name Value Range Interpretation Code Description Data Becky rce(s) Supporting Document(s) blood urea nitrogen 19 mg/dL 7-18 Above high normal Blood Ure a Nitrogen JEFF ([facility]) glucose, fasting 145 mg/dL 70-100 Above high normal Glucose, Fas ting [facility] ([facility] [facility] glomerular filtration rate > 60.0 >60 Glomerula r Filtration Rate JEFF ([facility]) creatinine for GFR 1.20 mg/dL 0.70-1.30 Creatinine for GF R JEFF ([facility]) sodium level 137 mEq/L 136-145 Sodium Level JEFF ([facility]) potassium serum 4.1 mEq/L 3.5-5.1 Potassium Serum ATHE ([facility]) carbon dioxide level 29 mEq/L 21-32 Carbon Dioxide Level JEFF ([facility]) anion gap 5 mEq/L 8-16 Below low normal Anion Gap JEFF ( [facility]) chloride level 103 mEq/L 98-107 Chloride Level JEFF ([facility]) calcium level 9.0 mg/dL 8.5-10.1 Calcium Level JFEF ( [facility]) AST/SGOT 16 U/L 7-37 AST/SGOT JEFF ([facility]) ALT/SGPT 38 U/L 12-78 ALT/SGPT JEFF ([facility]) total protein 7.6 gm/dL 6.4-8.2 Total Protein JEFF ( [facility]) bilirubin,total 0.4 mg/dL 0.2-1.0 Bilirubin,total ATHE NA ([facility]) alkaline phosphatase 82 U/L 45-117 Alkaline Phosph atase JEFF ([facility]) albumin/globulin ratio Albumin/globu bianca Ratio JEFF ([facility]) albumin 4.0 gm/dL 3.2-5.2 Albumin JEFF ([facility]) ID Date Data Source [id number] 08/17/2020 03:43:00 PM EST MEDENT ([facility]) Name Value Range Interpretation Code Description Data Becky rce(s) Supporting Document(s) Hemoglobin A1c/Hemoglobin.total in Blood 8.8 MEDENT ([facility]) Glucose [Mass/volume] in Serum or Plasma 277 MEDENT ([facility]) ID Date Data Source [id number] 08/09/2020 02:13:00 PM EDT JEFF ([facility]) Name Value Range Interpretation Code Description Data Becky rce(s) Supporting Document(s) color, urine yellow yellow Color, Urine JEFF ([facility]) appearance, urine clear clear Appearance, Urine JEFF ([facility]) pH,urine 5.0 units 5.0-9.0 pH,urine JEFF ([facility]) protein, urine auto negative negative Protein, Urine A ido [place] ([facility]) urobilinogen, urine auto 0.2 mg/dL 0.0-2.0 Urobilinoge n, Urine Auto JEFF ([facility]) ketone, urine auto negative negative Ketone, Urine Aut o JEFF ([facility]) glucose, urine (UA) auto 3+ negative Above high normal Gluc ose, Urine (UA) Auto JEFF ([facility]) specific gravity urine auto 1.002-1.035 Specifi c [place] Urine Auto JEFF ([facility]) blood, urine blood negative negative Blood, Urine Bloo d JEFF ([facility]) nitrite, urine auto negative negative Nitrite, Urine A uto JEFF ([facility]) bilirubin, urine auto negative negative Bilirubin, Uri ne Auto JEFF ([facility]) leukocyte esterase, urine auto negative negative Leukocyte Esterase, Urine Auto JEFF ([facility]) RBC, urine auto 2 /hpf 0-3 RBC, Urine Auto ATHE NA ([facility]) bacteria, urine auto negative negative Bacteria, Urine Auto JEFF ([facility]) squamous epithelial cell ur AU 0 /hpf 0-6 Squam ous Epithelial Cell Ur AU JEFF ([facility]) hyaline cast, urine auto 0 /lpf 0-1 Hyaline Maximilian t, Urine Auto JEFF ([facility]) WBC, urine auto 0 /hpf 0-3 WBC, Urine Auto ATHE NA ([facility]) ID Date Data Source [id number] 08/09/2020 02:13:00 PM EDT [place] ([facility]) Name Value Range Interpretation Code Description Data Becky rce(s) Supporting Document(s) appearance, urine clear clear Appearance, Urine JEFF ([facility]) color, urine yellow yellow Color, Urine JEFF ([facility]) pH,urine 5.0 units 5.0-9.0 pH,urine JEFF ([facility]) protein, urine auto negative negative Protein, Urine A ido [place] ([facility]) specific gravity urine auto 1.002-1.035 Specifi c [place] Urine Auto JEFF ([facility]) glucose, urine (UA) auto 3+ negative Above high normal Gluc ose, Urine (UA) Auto JEFF ([facility]) bilirubin, urine auto negative negative Bilirubin, Uri ne Auto JEFF ([facility]) ketone, urine auto negative negative Ketone, Urine Aut o JEFF ([facility]) urobilinogen, urine auto 0.2 mg/dL 0.0-2.0 Urobilinoge n, Urine Auto JEFF ([facility]) nitrite, urine auto negative negative Nitrite, Urine A uto JEFF ([facility]) leukocyte esterase, urine auto negative negative Leukocyte Esterase, Urine Auto JEFF ([facility]) WBC, urine auto 0 /hpf 0-3 WBC, Urine Auto ATHE NA ([facility]) bacteria, urine auto negative negative Bacteria, Urine Auto JEFF ([facility]) blood, urine blood negative negative Blood, Urine Bloo d JEFF ([facility]) RBC, urine auto 2 /hpf 0-3 RBC, Urine Auto ATHE NA ([facility]) hyaline cast, urine auto 0 /lpf 0-1 Hyaline Maximilian t, Urine Auto JEFF ([facility]) squamous epithelial cell ur AU 0 /hpf 0-6 Squam ous Epithelial Cell Ur AU JEFF ([facility]) ID Date Data Source [id number] 08/09/2020 02:13:00 PM EDT JEFF ([facility]) Name Value Range Interpretation Code Description Data Becky rce(s) Supporting Document(s) appearance, urine clear clear Appearance, Urine JEFF ([facility]) pH,urine 5.0 units 5.0-9.0 pH,urine JEFF ([facility]) color, urine yellow yellow Color, Urine JEFF (No [facility]) specific gravity urine auto 1.002-1.035 Specifi c [place] Urine Auto JEFF ([facility]) ketone, urine auto negative negative Ketone, Urine Aut o JEFF ([facility]) protein, urine auto negative negative Protein, Urine A uto JEFF ([facility]) glucose, urine (UA) auto 3+ negative Above high normal Gluc ose, Urine (UA) Auto JEFF ([facility]) leukocyte esterase, urine auto negative negative Leukocyte Esterase, Urine Auto JEFF ([facility]) bilirubin, urine auto negative negative Bilirubin, Uri ne Auto JEFF ([facility]) nitrite, urine auto negative negative Nitrite, Urine A uto JEFF ([facility]) urobilinogen, urine auto 0.2 mg/dL 0.0-2.0 Urobilinoge n, Urine Auto JEFF ([facility]) blood, urine blood negative negative Blood, Urine Bloo d JEFF ([facility]) WBC, urine auto 0 /hpf 0-3 WBC, Urine Auto ATHE NA ([facility]) bacteria, urine auto negative negative Bacteria, Urine Auto JEFF ([facility]) RBC, urine auto 2 /hpf 0-3 RBC, Urine Auto ATHE NA ([facility]) squamous epithelial cell ur AU 0 /hpf 0-6 Squam ous Epithelial Cell Ur AU JEFF ([facility]) hyaline cast, urine auto 0 /lpf 0-1 Hyaline Maximilian t, Urine Auto JEFF ([facility]) ID Date Data Source [id number] 08/09/2020 02:13:00 PM EDT JEFF ([facility]) Name Value Range Interpretation Code Description Data Becky rce(s) Supporting Document(s) appearance, urine clear clear Appearance, Urine JEFF ([facility]) color, urine yellow yellow Color, Urine JEFF (No [facility]) glucose, urine (UA) auto 3+ negative Above high normal Gluc ose, Urine (UA) Auto JEFF ([facility]) specific gravity urine auto 1.002-1.035 Specifi c [place] Urine Auto JEFF ([facility]) protein, urine auto negative negative Protein, Urine A uto JEFF ([facility]) pH,urine 5.0 units 5.0-9.0 pH,urine JEFF ([facility]) ketone, urine auto negative negative Ketone, Urine Aut o JEFF ([facility]) urobilinogen, urine auto 0.2 mg/dL 0.0-2.0 Urobilinoge n, Urine Auto JEFF ([facility]) bilirubin, urine auto negative negative Bilirubin, Uri ne Auto JEFF ([facility]) nitrite, urine auto negative negative Nitrite, Urine A uto JEFF ([facility]) blood, urine blood negative negative Blood, Urine Bloo d JEFF ([facility]) leukocyte esterase, urine auto negative negative Leukocyte Esterase, Urine Auto JEFF ([facility]) bacteria, urine auto negative negative Bacteria, Urine Auto JEFF ([facility]) RBC, urine auto 2 /hpf 0-3 RBC, Urine Auto ATHE NA ([facility]) squamous epithelial cell ur AU 0 /hpf 0-6 Squam ous Epithelial Cell Ur AU JEFF ([facility]) WBC, urine auto 0 /hpf 0-3 WBC, Urine Auto ATHE NA ([facility]) hyaline cast, urine auto 0 /lpf 0-1 Hyaline Maximilian t, Urine Auto JEFF ([facility]) ID Date Data Source [id number] 08/09/2020 02:13:00 PM EDT JEFF ([facility]) Name Value Range Interpretation Code Description Data Becky rce(s) Supporting Document(s) pH,urine 5.0 units 5.0-9.0 pH,urine JEFF ([facility]) specific gravity urine auto 1.002-1.035 Specifi c [place] Urine Auto JEFF ([facility]) appearance, urine clear clear Appearance, Urine JEFF ([facility]) color, urine yellow yellow Color, [facility] protein, urine auto negative negative Protein, Urine A uto JEFF ([facility]) ketone, urine auto negative negative Ketone, Urine Aut o JEFF ([facility]) urobilinogen, urine auto 0.2 mg/dL 0.0-2.0 Urobilinoge n, Urine Auto JEFF ([facility]) glucose, urine (UA) auto 3+ negative Above high normal Gluc ose, Urine (UA) Auto JEFF ([facility]) blood, urine blood negative negative Blood, Urine Bloo d JEFF ([facility]) nitrite, urine auto negative negative Nitrite, Urine A uto JEFF ([facility]) bilirubin, urine auto negative negative Bilirubin, Uri ne Auto JEFF ([facility]) WBC, urine auto 0 /hpf 0-3 WBC, Urine Auto ATHE NA ([facility]) leukocyte esterase, urine auto negative negative Leukocyte Esterase, Urine Auto JEFF ([facility]) RBC, urine auto 2 /hpf 0-3 RBC, Urine Auto ATHE NA ([facility]) hyaline cast, urine auto 0 /lpf 0-1 Hyaline Maximilian t, Urine Auto JEFF ([facility]) bacteria, urine auto negative negative Bacteria, Urine Auto JEFF ([facility]) squamous epithelial cell ur AU 0 /hpf 0-6 Squam ous Epithelial Cell Ur AU JEFF ([facility]) ID Date Data Source [id number] 08/09/2020 02:13:00 PM EDT JEFF ([facility]) Name Value Range Interpretation Code Description Data Becky rce(s) Supporting Document(s) appearance, urine clear clear Appearance, Urine JEFF ([facility]) specific gravity urine auto 1.002-1.035 Specifi c [place] Urine Auto JEFF ([facility]) pH,urine 5.0 units 5.0-9.0 pH,urine JEFF ([facility]) color, urine yellow yellow Color, Urine JEFF (No [facility]) protein, urine auto negative negative Protein, Urine A uto JEFF ([facility]) urobilinogen, urine auto 0.2 mg/dL 0.0-2.0 Urobilinoge n, Urine Auto JEFF ([facility]) glucose, urine (UA) auto 3+ negative Above high normal Gluc ose, Urine (UA) Auto JEFF ([facility]) ketone, urine auto negative negative Ketone, Urine Aut o JEFF ([facility]) blood, urine blood negative negative Blood, Urine Bloo d JEFF ([facility]) nitrite, urine auto negative negative Nitrite, Urine A uto JEFF ([facility]) leukocyte esterase, urine auto negative negative Leukocyte Esterase, Urine Auto JEFF ([facility]) bilirubin, urine auto negative negative Bilirubin, Uri ne Auto JEFF ([facility]) squamous epithelial cell ur AU 0 /hpf 0-6 Squam ous Epithelial Cell Ur AU JEFF ([facility]) bacteria, urine auto negative negative Bacteria, Urine Auto JEFF ([facility]) WBC, urine auto 0 /hpf 0-3 WBC, Urine Auto ATHE NA ([facility]) hyaline cast, urine auto 0 /lpf 0-1 Hyaline Maximilian t, Urine Auto JEFF ([facility]) RBC, urine auto 2 /hpf 0-3 RBC, Urine Auto ATHE NA ([facility]) ID Date Data Source [id number] 08/09/2020 02:13:00 PM EDT JEFF ([facility]) Name Value Range Interpretation Code Description Data Becky rce(s) Supporting Document(s) color, urine yellow yellow Color, Urine JEFF (No [facility]) appearance, urine clear clear Appearance, Urine JEFF ([facility]) protein, urine auto negative negative Protein, Urine A uto JEFF ([facility]) pH,urine 5.0 units 5.0-9.0 pH,urine JEFF ([facility]) glucose, urine (UA) auto 3+ negative Above high normal Gluc ose, Urine (UA) Auto JEFF ([facility]) specific gravity urine auto 1.002-1.035 Specifi c [place] Urine Auto JEFF ([facility]) bilirubin, urine auto negative negative Bilirubin, Uri ne Auto JEFF ([facility]) leukocyte esterase, urine auto negative negative Leukocyte Esterase, Urine Auto JEFF ([facility]) ketone, urine auto negative negative Ketone, Urine Aut o JEFF ([facility]) nitrite, urine auto negative negative Nitrite, Urine A uto JEFF ([facility]) urobilinogen, urine auto 0.2 mg/dL 0.0-2.0 Urobilinoge n, Urine Auto JEFF ([facility]) bacteria, urine auto negative negative Bacteria, Urine Auto JEFF ([facility]) blood, urine blood negative negative Blood, Urine Bloo d JEFF ([facility]) squamous epithelial cell ur AU 0 /hpf 0-6 Squam ous Epithelial Cell Ur AU JEFF ([facility]) RBC, urine auto 2 /hpf 0-3 RBC, Urine Auto ATHE NA ([facility]) WBC, urine auto 0 /hpf 0-3 WBC, Urine Auto ATHE NA ([facility]) hyaline cast, urine auto 0 /lpf 0-1 Hyaline Maximilian t, Urine Auto JEFF ([facility]) ID Date Data Source [id number] 08/09/2020 02:13:00 PM EDT [place] ([facility]) Name Value Range Interpretation Code Description Data Becky rce(s) Supporting Document(s) pH,urine 5.0 units 5.0-9.0 pH,urine JEFF ([facility]) specific gravity urine auto 1.002-1.035 Specifi c [place] Urine Auto JEFF ([facility]) color, urine yellow yellow Color, Urine JEFF (No [facility]) appearance, urine clear clear Appearance, Urine JEFF ([facility]) urobilinogen, urine auto 0.2 mg/dL 0.0-2.0 Urobilinoge n, Urine Auto JEFF ([facility]) glucose, urine (UA) auto 3+ negative Above high normal Gluc ose, Urine (UA) Auto JEFF ([facility]) ketone, urine auto negative negative Ketone, Urine Aut o JEFF ([facility]) protein, urine auto negative negative Protein, Urine A uto JEFF ([facility]) bilirubin, urine auto negative negative Bilirubin, Uri ne Auto JEFF ([facility]) WBC, urine auto 0 /hpf 0-3 WBC, Urine Auto ATHE NA ([facility]) leukocyte esterase, urine auto negative negative Leukocyte Esterase, Urine Auto JEFF ([facility]) nitrite, urine auto negative negative Nitrite, Urine A uto JEFF ([facility]) blood, urine blood negative negative Blood, Urine Bloo d JEFF ([facility]) squamous epithelial cell ur AU 0 /hpf 0-6 Squam ous Epithelial Cell Ur AU JEFF ([facility]) bacteria, urine auto negative negative Bacteria, Urine Auto JEFF ([facility]) RBC, urine auto 2 /hpf 0-3 RBC, Urine Auto ATHE NA ([facility]) hyaline cast, urine auto 0 /lpf 0-1 Hyaline Maximilian t, Urine Auto JEFF ([facility]) ID Date Data Source [id number] 08/09/2020 02:13:00 PM EDT JEFF ([facility]) Name Value Range Interpretation Code Description Data Becky rce(s) Supporting Document(s) pH,urine 5.0 units 5.0-9.0 pH,urine JEFF ([facility]) appearance, urine clear clear Appearance, Urine JEFF ([facility]) color, urine yellow yellow Color, Urine JEFF (No [facility]) specific gravity urine auto 1.002-1.035 Specifi c [place] Urine Auto JEFF ([facility]) protein, urine auto negative negative Protein, Urine A uto JEFF ([facility]) urobilinogen, urine auto 0.2 mg/dL 0.0-2.0 Urobilinoge n, Urine Auto JEFF ([facility]) glucose, urine (UA) auto 3+ negative Above high normal Gluc ose, Urine (UA) Auto JEFF ([facility]) ketone, urine auto negative negative Ketone, Urine Aut o JEFF ([facility]) WBC, urine auto 0 /hpf 0-3 WBC, Urine Auto ATHE NA ([facility]) blood, urine blood negative negative Blood, Urine Bloo d JEFF ([facility]) leukocyte esterase, urine auto negative negative Leukocyte Esterase, Urine Auto JEFF ([facility]) bilirubin, urine auto negative negative Bilirubin, Uri ne Auto JEFF ([facility]) nitrite, urine auto negative negative Nitrite, Urine A uto JEFF ([facility]) RBC, urine auto 2 /hpf 0-3 RBC, Urine Auto ATHE NA ([facility]) bacteria, urine auto negative negative Bacteria, Urine Auto JEFF ([facility]) hyaline cast, urine auto 0 /lpf 0-1 Hyaline Maximilian t, Urine Auto JEFF ([facility]) squamous epithelial cell ur AU 0 /hpf 0-6 Squam ous Epithelial Cell Ur AU JEFF ([facility]) ID Date Data Source [id number] 08/09/2020 02:13:00 PM EDT JEFF ([facility]) Name Value Range Interpretation Code Description Data Becky rce(s) Supporting Document(s) color, urine yellow yellow Color, Urine JEFF (No [facility]) appearance, urine clear clear Appearance, Urine JEFF ([facility]) pH,urine 5.0 units 5.0-9.0 pH,urine JEFF ([facility]) protein, urine auto negative negative Protein, Urine A uto JEFF ([facility]) specific gravity urine auto 1.002-1.035 Specifi c [place] Urine Auto JEFF ([facility]) ketone, urine auto negative negative Ketone, Urine Aut o JEFF ([facility]) glucose, urine (UA) auto 3+ negative Above high normal Gluc ose, Urine (UA) Auto JEFF ([facility]) urobilinogen, urine auto 0.2 mg/dL 0.0-2.0 Urobilinoge n, Urine Auto JEFF ([facility]) leukocyte esterase, urine auto negative negative Leukocyte Esterase, Urine Auto JEFF ([facility]) nitrite, urine auto negative negative Nitrite, Urine A uto JEFF ([facility]) blood, urine blood negative negative Blood, Urine Bloo d JEFF ([facility]) bilirubin, urine auto negative negative Bilirubin, Uri ne Auto JEFF ([facility]) WBC, urine auto 0 /hpf 0-3 WBC, Urine Auto ATHE NA ([facility]) RBC, urine auto 2 /hpf 0-3 RBC, Urine Auto ATHE NA ([facility]) hyaline cast, urine auto 0 /lpf 0-1 Hyaline Maximilian t, Urine Auto JEFF ([facility]) squamous epithelial cell ur AU 0 /hpf 0-6 Squam ous Epithelial Cell Ur AU JEFF ([facility]) bacteria, urine auto negative negative Bacteria, Urine Auto JEFF ([facility]) ID Date Data Source [id number] 08/09/2020 02:13:00 PM EDT JEFF ([facility]) Name Value Range Interpretation Code Description Data Becky rce(s) Supporting Document(s) specific gravity urine auto 1.002-1.035 Specifi c [place] Urine Auto JEFF ([facility]) pH,urine 5.0 units 5.0-9.0 pH,urine JEFF ([facility]) appearance, urine clear clear Appearance, Urine JEFF ([facility]) color, urine yellow yellow Color, Urine JEFF (No [facility]) bilirubin, urine auto negative negative Bilirubin, Uri ne Auto JEFF ([facility]) ketone, urine auto negative negative Ketone, Urine Aut o JEFF ([facility]) protein, urine auto negative negative Protein, Urine A uto JEFF ([facility]) glucose, urine (UA) auto 3+ negative Above high normal Gluc ose, Urine (UA) Auto JEFF ([facility]) urobilinogen, urine auto 0.2 mg/dL 0.0-2.0 Urobilinoge n, Urine Auto JEFF ([facility]) leukocyte esterase, urine auto negative negative Leukocyte Esterase, Urine Auto JEFF ([facility]) WBC, urine auto 0 /hpf 0-3 WBC, Urine Auto ATHE NA ([facility]) nitrite, urine auto negative negative Nitrite, Urine A uto JEFF ([facility]) blood, urine blood negative negative Blood, Urine Bloo d JEFF ([facility]) squamous epithelial cell ur AU 0 /hpf 0-6 Squam ous Epithelial Cell Ur AU JEFF ([facility]) RBC, urine auto 2 /hpf 0-3 RBC, Urine Auto ATHE NA ([facility]) hyaline cast, urine auto 0 /lpf 0-1 Hyaline Maximilian t, Urine Auto JEFF ([facility]) bacteria, urine auto negative negative Bacteria, Urine Auto JEFF ([facility]) ID Date Data Source [id number] 08/09/2020 02:13:00 PM EDT JEFF ([facility]) Name Value Range Interpretation Code Description Data Becky rce(s) Supporting Document(s) color, urine yellow yellow Color, Urine JEFF (No [facility]) specific gravity urine auto 1.002-1.035 Specifi c [place] Urine Auto JEFF ([facility]) appearance, urine clear clear Appearance, Urine EJFF ([facility]) pH,urine 5.0 units 5.0-9.0 pH,urine JEFF ([facility]) protein, urine auto negative negative Protein, Urine A uto JEFF ([facility]) ketone, urine auto negative negative Ketone, Urine Aut o JEFF ([facility]) glucose, urine (UA) auto 3+ negative Above high normal Gluc ose, Urine (UA) Auto JEFF ([facility]) urobilinogen, urine auto 0.2 mg/dL 0.0-2.0 Urobilinoge n, Urine Auto JEFF ([facility]) bilirubin, urine auto negative negative Bilirubin, Uri ne Auto JEFF ([facility]) RBC, urine auto 2 /hpf 0-3 RBC, Urine Auto ATHE NA ([facility]) WBC, urine auto 0 /hpf 0-3 WBC, Urine Auto ATHE NA ([facility]) leukocyte esterase, urine auto negative negative Leukocyte Esterase, Urine Auto JEFF ([facility]) blood, urine blood negative negative Blood, Urine Bloo d JEFF ([facility]) nitrite, urine auto negative negative Nitrite, Urine A uto JEFF ([facility]) hyaline cast, urine auto 0 /lpf 0-1 Hyaline Maximilian t, Urine Auto JEFF ([facility]) bacteria, urine auto negative negative Bacteria, Urine Auto JEFF ([facility]) squamous epithelial cell ur AU 0 /hpf 0-6 Squam ous Epithelial Cell Ur AU JEFF ([facility]) ID Date Data Source [id number] 08/09/2020 02:13:00 PM EDT JEFF ([facility]) Name Value Range Interpretation Code Description Data Becky rce(s) Supporting Document(s) pH,urine 5.0 units 5.0-9.0 pH,urine JEFF ([facility]) appearance, urine clear clear Appearance, Urine JEFF ([facility]) color, urine yellow yellow Color, Urine JEFF (No [facility]) specific gravity urine auto 1.002-1.035 Specifi c [place] Urine Auto JEFF ([facility]) glucose, urine (UA) auto 3+ negative Above high normal Gluc ose, Urine (UA) Auto JEFF ([facility]) protein, urine auto negative negative Protein, Urine A uto JEFF ([facility]) ketone, urine auto negative negative Ketone, Urine Aut o JEFF ([facility]) urobilinogen, urine auto 0.2 mg/dL 0.0-2.0 Urobilinoge n, Urine Auto JEFF ([facility]) blood, urine blood negative negative Blood, Urine Bloo d JEFF ([facility]) leukocyte esterase, urine auto negative negative Leukocyte Esterase, Urine Auto JEFF ([facility]) bilirubin, urine auto negative negative Bilirubin, Uri ne Auto JEFF ([facility]) nitrite, urine auto negative negative Nitrite, Urine A uto JEFF ([facility]) WBC, urine auto 0 /hpf 0-3 WBC, Urine Auto ATHE NA ([facility]) hyaline cast, urine auto 0 /lpf 0-1 Hyaline Maximilian t, Urine Auto JEFF ([facility]) squamous epithelial cell ur AU 0 /hpf 0-6 Squam ous Epithelial Cell Ur AU JEFF ([facility]) RBC, urine auto 2 /hpf 0-3 RBC, Urine Auto ATHE NA ([facility]) bacteria, urine auto negative negative Bacteria, Urine Auto JEFF ([facility]) ID Date Data Source [id number] 08/09/2020 02:13:00 PM EDT JEFF ([facility]) Name Value Range Interpretation Code Description Data Becky rce(s) Supporting Document(s) appearance, urine clear clear Appearance, Urine JEFF ([facility]) color, urine yellow yellow Color, Urine JEFF (No [facility]) specific gravity urine auto 1.002-1.035 Specifi c [place] Urine Auto JEFF ([facility]) glucose, urine (UA) auto 3+ negative Above high normal Gluc ose, Urine (UA) Auto JEFF ([facility]) protein, urine auto negative negative Protein, Urine A uto JEFF ([facility]) pH,urine 5.0 units 5.0-9.0 pH,urine JEFF ([facility]) nitrite, urine auto negative negative Nitrite, Urine A uto JEFF ([facility]) ketone, urine auto negative negative Ketone, Urine Aut o JEFF ([facility]) urobilinogen, urine auto 0.2 mg/dL 0.0-2.0 Urobilinoge n, Urine Auto JEFF ([facility]) leukocyte esterase, urine auto negative negative Leukocyte Esterase, Urine Auto JEFF ([facility]) bilirubin, urine auto negative negative Bilirubin, Uri ne Auto JEFF ([facility]) RBC, urine auto 2 /hpf 0-3 RBC, Urine Auto ATHE NA ([facility]) blood, urine blood negative negative Blood, Urine Bloo d JEFF ([facility]) bacteria, urine auto negative negative Bacteria, Urine Auto JEFF ([facility]) WBC, urine auto 0 /hpf 0-3 WBC, Urine Auto ATHE NA ([facility]) squamous epithelial cell ur AU 0 /hpf 0-6 Squam ous Epithelial Cell Ur AU JEFF ([facility]) hyaline cast, urine auto 0 /lpf 0-1 Hyaline Maximilian t, Urine Auto JEFF ([facility]) ID Date Data Source [id number] 08/09/2020 02:13:00 PM EDT JEFF ([facility]) Name Value Range Interpretation Code Description Data Becky rce(s) Supporting Document(s) appearance, urine clear clear Appearance, Urine JEFF ([facility]) color, urine yellow yellow Color, Urine JEFF (No [facility]) protein, urine auto negative negative Protein, Urine A uto JFEF ([facility]) pH,urine 5.0 units 5.0-9.0 pH,urine JEFF ([facility]) specific gravity urine auto 1.002-1.035 Specifi c [place] Urine Auto JEFF ([facility]) glucose, urine (UA) auto 3+ negative Above high normal Gluc ose, Urine (UA) Auto JEFF ([facility]) urobilinogen, urine auto 0.2 mg/dL 0.0-2.0 Urobilinoge n, Urine Auto JEFF ([facility]) ketone, urine auto negative negative Ketone, Urine Aut o JEFF ([facility]) bilirubin, urine auto negative negative Bilirubin, Uri ne Auto JEFF ([facility]) nitrite, urine auto negative negative Nitrite, Urine A uto JEFF ([facility]) blood, urine blood negative negative Blood, Urine Bloo d JEFF ([facility]) WBC, urine auto 0 /hpf 0-3 WBC, Urine Auto ATHE NA ([facility]) leukocyte esterase, urine auto negative negative Leukocyte Esterase, Urine Auto JEFF ([facility]) RBC, urine auto 2 /hpf 0-3 RBC, Urine Auto ATHE NA ([facility]) hyaline cast, urine auto 0 /lpf 0-1 Hyaline Maximilian t, Urine Auto JEFF ([facility]) squamous epithelial cell ur AU 0 /hpf 0-6 Squam ous Epithelial Cell Ur AU JEFF ([facility]) bacteria, urine auto negative negative Bacteria, Urine Auto JEFF ([facility]) ID Date Data Source [id number] 08/09/2020 02:13:00 PM EDT JEFF ([facility]) Name Value Range Interpretation Code Description Data Ebcky rce(s) Supporting Document(s) appearance, urine clear clear Appearance, Urine JEFF ([facility]) pH,urine 5.0 units 5.0-9.0 pH,urine JEFF ([facility]) specific gravity urine auto 1.002-1.035 Specifi c [place] Urine Auto JEFF ([facility]) color, urine yellow yellow Color, [facility] u[facility], urine auto 0.2 mg/dL 0.0-2.0 Urobilinoge n, Urine Auto JEFF ([facility]) glucose, urine (UA) auto 3+ negative Above high normal Gluc ose, Urine (UA) Auto JEFF ([facility]) ketone, urine auto negative negative Ketone, Urine Aut o JEFF ([facility]) protein, urine auto negative negative Protein, Urine A uto JEFF ([facility]) blood, urine blood negative negative Blood, Urine Bloo d JEFF ([facility]) bilirubin, urine auto negative negative Bilirubin, Uri ne Auto JEFF ([facility]) leukocyte esterase, urine auto negative negative Leukocyte Esterase, Urine Auto JEFF ([facility]) nitrite, urine auto negative negative Nitrite, Urine A uto JEFF ([facility]) bacteria, urine auto negative negative Bacteria, Urine Auto JEFF ([facility]) hyaline cast, urine auto 0 /lpf 0-1 Hyaline Maximilian t, Urine Auto JEFF ([facility]) squamous epithelial cell ur AU 0 /hpf 0-6 Squam ous Epithelial Cell Ur AU JEFF ([facility]) WBC, urine auto 0 /hpf 0-3 WBC, Urine Auto ATHE NA ([facility]) RBC, urine auto 2 /hpf 0-3 RBC, Urine Auto ATHE NA ([facility]) ID Date Data Source [id number] 08/09/2020 02:13:00 PM EDT JEFF ([facility]) Name Value Range Interpretation Code Description Data Becky rce(s) Supporting Document(s) appearance, urine clear clear Appearance, Urine JEFF ([facility]) color, urine yellow yellow Color, Urine JEFF (No [facility]) pH,urine 5.0 units 5.0-9.0 pH,urine JEFF ([facility]) protein, urine auto negative negative Protein, Urine A uto JEFF ([facility]) ketone, urine auto negative negative Ketone, Urine Aut o JEFF ([facility]) specific gravity urine auto 1.002-1.035 Specifi c [place] Urine Auto JEFF ([facility]) glucose, urine (UA) auto 3+ negative Above high normal Gluc ose, Urine (UA) Auto JEFF ([facility]) blood, urine blood negative negative Blood, Urine Bloo d JEFF ([facility]) nitrite, urine auto negative negative Nitrite, Urine A uto JEFF ([facility]) bilirubin, urine auto negative negative Bilirubin, Uri ne Auto JEFF ([facility]) urobilinogen, urine auto 0.2 mg/dL 0.0-2.0 Urobilinoge n, Urine Auto JEFF ([facility]) leukocyte esterase, urine auto negative negative Leukocyte Esterase, Urine Auto JEFF ([facility]) bacteria, urine auto negative negative Bacteria, Urine Auto JEFF ([facility]) WBC, urine auto 0 /hpf 0-3 WBC, Urine Auto ATHE NA ([facility]) RBC, urine auto 2 /hpf 0-3 RBC, Urine Auto ATHE NA ([facility]) squamous epithelial cell ur AU 0 /hpf 0-6 Squam ous Epithelial Cell Ur AU JEFF ([facility]) hyaline cast, urine auto 0 /lpf 0-1 Hyaline Maximilian t, Urine Auto JEFF ([facility]) ID Date Data Source [id number] 08/09/2020 12:40:00 PM EDT SULLIVAN ([facility]) Name Value Range Interpretation Code Description Data Becky rce(s) Supporting Document(s) Hemoglobin A1c/Hemoglobin.total in Blood 8.6 % Hemoglobin a1C SULLIVAN ([facility]) estimated average glucose 200 mg/dL 60-110 Above high norm al Estimated Average Glucose SULLIVAN ([facility]) ID Date Data Source [id number] 08/09/2020 12:40:00 PM EDT SULLIVAN ([facility]) Name Value Range Interpretation Code Description Data Becky rce(s) Supporting Document(s) acetone/ketone 1.22 mg/dL <2.81 Acetone/ketone SULLIVAN ([facility]) ID Date Data Source [id number] 08/09/2020 12:40:00 PM EDT SULLIVAN ([facility]) Name Value Range Interpretation Code Description Data Becky rce(s) Supporting Document(s) blood urea nitrogen 16 mg/dL 7-18 Blood Urea Nitro gen JEFF ([facility]) glucose, fasting 210 mg/dL 70-100 Above high normal Glucose, Fas ting JEFF ([facility]) sodium level 135 mEq/L 136-145 Below low normal Sodium Level ATHE ([facility]) glomerular filtration rate > 60.0 >60 Glomerula r Filtration Rate JEFF ([facility]) creatinine for GFR 1.03 mg/dL 0.70-1.30 Creatinine for GF R JEFF ([facility]) chloride level 101 mEq/L 98-107 Chloride Level JEFF ([facility]) potassium serum 4.0 mEq/L 3.5-5.1 Potassium Serum ATHE NA ([facility]) carbon dioxide level 28 mEq/L 21-32 Carbon Dioxide Level JEFF ([facility]) anion gap 6 mEq/L 8-16 Below low normal Anion Gap JEFF ( [facility]) calcium level 9.7 mg/dL 8.5-10.1 Calcium Level JEFF ( [facility]) ID Date Data Source [id number] 08/09/2020 12:40:00 PM EDT JEFF ([facility]) Name Value Range Interpretation Code Description Data Becky rce(s) Supporting Document(s) AST/SGOT 24 U/L 7-37 AST/SGOT JEFF ([facility]) alkaline phosphatase 101 U/L 45-117 Alkaline Phosph atase JEFF ([facility]) ALT/SGPT 39 U/L 12-78 ALT/SGPT JEFF ([facility]) bilirubin,total 0.4 mg/dL 0.2-1.0 Bilirubin,total ATHE ([facility]) total protein 7.6 gm/dL 6.4-8.2 Total Protein JEFF ( [facility]) bilirubin,direct 0.1 mg/dL 0.0-0.2 Bilirubin,direct AT DIONICIO ([facility]) albumin/globulin ratio Albumin/globu bianca Ratio JEFF ([facility]) albumin 3.9 gm/dL 3.2-5.2 Albumin JEFF ([facility]) ID Date Data Source [id number] 08/09/2020 12:40:00 PM EDT JEFF ([facility]) Name Value Range Interpretation Code Description Data Becky rce(s) Supporting Document(s) red blood count 5.23 10 4.30-6.10 Red Blood Count ATHE NA ([facility]) white blood count 7.4 10 4.0-10.0 White Blood Count JEFF ([facility]) hemoglobin 15.5 g/dL 13.5-17.5 Hemoglobin JEFF ([facility]) hematocrit 46.0 % 42.0-52.0 Hematocrit JEFF ([facility]) mean corpuscular hemoglobin 29.6 pg 27.0-33.0 Mean Cor puscular Hemoglobin JEFF ([facility]) mean corpuscular HGB conc 33.7 g/dL 32.0-36.5 Mean Corpu scular HGB Conc JEFF ([facility]) mean corpuscular volume 88.0 fL 80.0-96.0 Mean Corpusc ular Volume JEFF ([facility]) red cell distribution width 12.5 % 11.5-14.5 Red Cell Distribution Width JEFF ([facility]) neutrophils % 60.8 % 36.0-66.0 Neutrophils % SULLIVAN ( [facility]) platelet count, automated 186 10 150-450 Platelet C ount, Automated JEFF ([facility]) lymph % 23.0 % 24.0-44.0 Below low normal Lymph % JEFF ( [facility]) mono % 7.6 % 0.0-5.0 Above high normal [place] % SULLIVAN ([facility]) eos % 5.8 % 0.0-3.0 Above high normal Eos % JEFF ([facility]) neutrophils # 4.5 10 1.5-8.5 Neutrophils # SULLIVAN ( [facility]) baso % 1.0 % 0.0-1.0 Baso % JEFF ([facility]) immature granulocyte % 1.8 % 0-3.0 Immature Gran ulocyte % JEFF ([facility]) nucleated red blood cell % 0.0 % 0-0 Nucleated Red Blood Cell % JEFF ([facility]) lymph # 1.7 10 1.5-5.0 Lymph # JEFF ([facility]) eos # 0.4 10 0.0-0.5 Eos # JEFF ([facility]) mono # 0.6 10 0.0-0.8 [place] # JEFF ([facility]) baso # 0.1 10 0.0-0.2 Baso # JEFF ([facility]) ID Date Data Source [id number] 08/09/2020 12:40:00 PM EDT JEFF ([facility]) Name Value Range Interpretation Code Description Data Becky rce(s) Supporting Document(s) venous pH 7.320 units 7.330-7.430 Below low normal Venous pH JEFF ([facility]) venous partial pressure O2 62.5 mmHg 30.0-50.0 Above high nor mal Venous Partial Pressure O2 JEFF ([facility]) venous total CO2 22.8 mEq/L 24.0-28.0 Below low normal Venous Total CO2 SULLIVAN ([facility]) venous partial pressure CO2 42.6 mmHg 38.0-50.0 Venous P artial Pressure CO2 JEFF ([facility]) venous base excess -2.0-2.0 Below low normal Venous Base Excess JEFF ([facility]) venous HCO3 21.5 mEq/L 23.0-27.0 Below low normal Venous HCO3 JEFF ([facility]) venous standard HCO3 20.7 mEq/L Venous Standard HCO3 JEFF ([facility]) venous O2 saturation 91.2 % 60.0-80.0 Above high normal Venous O 2 Saturation JEFF ([facility]) ID Date Data Source [id number] 08/09/2020 12:40:00 PM EDT JEFF ([facility]) Name Value Range Interpretation Code Description Data Becky rce(s) Supporting Document(s) estimated average glucose 200 mg/dL 60-110 Above high norm al Estimated Average Glucose JEFF ([facility]) Hemoglobin A1c/Hemoglobin.total in Blood 8.6 % Hemoglobin a1C JEFF ([facility]) ID Date Data Source [id number] 08/09/2020 12:40:00 PM EDT JEFF ([facility]) Name Value Range Interpretation Code Description Data Becky rce(s) Supporting Document(s) acetone/ketone 1.22 mg/dL <2.81 Acetone/ketone JEFF ([facility]) ID Date Data Source [id number] 08/09/2020 12:40:00 PM EDT JEFF ([facility]) Name Value Range Interpretation Code Description Data Becky rce(s) Supporting Document(s) creatinine for GFR 1.03 mg/dL 0.70-1.30 Creatinine for GF R JEFF ([facility]) blood urea nitrogen 16 mg/dL 7-18 Blood Urea Nitro gen JEFF ([facility]) glucose, fasting 210 mg/dL 70-100 Above high normal Glucose, Fas ting JEFF ([facility]) sodium level 135 mEq/L 136-145 Below low normal Sodium Level ATHE ([facility]) potassium serum 4.0 mEq/L 3.5-5.1 Potassium Serum ATHE ([facility]) glomerular filtration rate > 60.0 >60 Glomerula r Filtration Rate JEFF ([facility]) chloride level 101 mEq/L 98-107 Chloride Level SULLIVAN ([facility]) anion gap 6 mEq/L 8-16 Below low normal Anion Gap JEFF ( [facility]) carbon dioxide level 28 mEq/L 21-32 Carbon Dioxide Level JEFF ([facility]) calcium level 9.7 mg/dL 8.5-10.1 Calcium Level SULLIVAN ( [facility]) ID Date Data Source [id number] 08/09/2020 12:40:00 PM EDT SULLIVAN ([facility]) Name Value Range Interpretation Code Description Data Becky rce(s) Supporting Document(s) AST/SGOT 24 U/L 7-37 AST/SGOT JEFF ([facility]) ALT/SGPT 39 U/L 12-78 ALT/SGPT SULLIVAN ([facility]) bilirubin,total 0.4 mg/dL 0.2-1.0 Bilirubin,total ATHE ([facility]) alkaline phosphatase 101 U/L 45-117 Alkaline Phosph atase JEFF ([facility]) bilirubin,direct 0.1 mg/dL 0.0-0.2 Bilirubin,direct AT DIONICIO ([facility]) total protein 7.6 gm/dL 6.4-8.2 Total Protein JEFF ( [facility]) albumin/globulin ratio Albumin/globu bianca Ratio JEFF ([facility]) albumin 3.9 gm/dL 3.2-5.2 Albumin JEFF ([facility]) ID Date Data Source [id number] 08/09/2020 12:40:00 PM EDT S[place]AN ([facility]) Name Value Range Interpretation Code Description Data Becky rce(s) Supporting Document(s) red blood count 5.23 10 4.30-6.10 Red Blood Count ATHE ([facility]) white blood count 7.4 10 4.0-10.0 White Blood Count JEFF ([facility]) hemoglobin 15.5 g/dL 13.5-17.5 Hemoglobin JEFF ([facility]) hematocrit 46.0 % 42.0-52.0 Hematocrit JEFF ([facility]) mean corpuscular hemoglobin 29.6 pg 27.0-33.0 Mean Cor puscular Hemoglobin JEFF ([facility]) mean corpuscular volume 88.0 fL 80.0-96.0 Mean Corpusc ular Volume JEFF ([facility]) mean corpuscular HGB conc 33.7 g/dL 32.0-36.5 Mean Corpu scular HGB Conc JEFF ([facility]) red cell distribution width 12.5 % 11.5-14.5 Red Cell Distribution Width JEFF ([facility]) platelet count, automated 186 10 150-450 [facility] lymph % 23.0 % 24.0-44.0 Below low normal Lymph % JEFF ( [facility]) neutrophils % 60.8 % 36.0-66.0 Neutrophils % JEFF ( [facility]) mono % 7.6 % 0.0-5.0 Above high normal [place] % JEFF ([facility]) eos % 5.8 % 0.0-3.0 Above high normal Eos % JEFF ([facility]) immature granulocyte % 1.8 % 0-3.0 Immature Gran ulocyte % JEFF ([facility]) baso % 1.0 % 0.0-1.0 Baso % JEFF ([facility]) nucleated red blood cell % 0.0 % 0-0 Nucleated Red Blood Cell % JEFF ([facility]) neutrophils # 4.5 10 1.5-8.5 Neutrophils # JEFF ( [facility]) lymph # 1.7 10 1.5-5.0 Lymph # JEFF ([facility]) mono # 0.6 10 0.0-0.8 [place] # JEFF ([facility]) baso # 0.1 10 0.0-0.2 Baso # JEFF ([facility]) eos # 0.4 10 0.0-0.5 Eos # JEFF ([facility]) ID Date Data Source [id number] 08/09/2020 12:40:00 PM EDT [place]AN ([facility]) Name Value Range Interpretation Code Description Data Becky rce(s) Supporting Document(s) venous pH 7.320 units 7.330-7.430 Below low normal Venous pH EJFF ([facility]) venous partial pressure CO2 42.6 mmHg 38.0-50.0 Venous P artial Pressure CO2 JEFF ([facility]) venous partial pressure O2 62.5 mmHg 30.0-50.0 Above high nor mal Venous Partial Pressure O2 JEFF ([facility]) venous total CO2 22.8 mEq/L 24.0-28.0 Below low normal Venous Total CO2 JEFF ([facility]) venous HCO3 21.5 mEq/L 23.0-27.0 Below low normal Venous HCO3 JEFF ([facility]) venous O2 saturation 91.2 % 60.0-80.0 Above high normal Venous O 2 Saturation JEFF ([facility]) venous base excess -2.0-2.0 Below low normal Venous Base Excess JEFF ([facility]) venous standard HCO3 20.7 mEq/L Venous Standard HCO3 JEFF ([facility]) ID Date Data Source [id number] 08/09/2020 12:40:00 PM EDT [place] ([facility]) Name Value Range Interpretation Code Description Data Becky rce(s) Supporting Document(s) Hemoglobin A1c/Hemoglobin.total in Blood 8.6 % Hemoglobin a1C [place] ([facility]) estimated average glucose 200 mg/dL 60-110 Above high norm al Estimated Average Glucose [place]AN ([facility]) ID Date Data Source [id number] 08/09/2020 12:40:00 PM EDT [place] ([facility]) Name Value Range Interpretation Code Description Data Becky rce(s) Supporting Document(s) acetone/ketone 1.22 mg/dL <2.81 Acetone/ketone SULLIVAN ([facility]) ID Date Data Source [id number] 08/09/2020 12:40:00 PM EDT SULLIVAN ([facility]) Name Value Range Interpretation Code Description Data Becky rce(s) Supporting Document(s) glucose, fasting 210 mg/dL 70-100 Above high normal Glucose, Fas ting JEFF ([facility]) blood urea nitrogen 16 mg/dL 7-18 Blood Urea Nitro gen JEFF ([facility]) glomerular filtration rate > 60.0 >60 Glomerula r Filtration Rate JEFF ([facility]) creatinine for GFR 1.03 mg/dL 0.70-1.30 Creatinine for GF R JEFF ([facility]) sodium level 135 mEq/L 136-145 Below low normal Sodium Level ATHE NA ([facility]) potassium serum 4.0 mEq/L 3.5-5.1 Potassium Serum ATHE NA ([facility]) chloride level 101 mEq/L 98-107 Chloride Level SULLIVAN ([facility]) anion gap 6 mEq/L 8-16 Below low normal Anion Gap JEFF ( [facility]) carbon dioxide level 28 mEq/L 21-32 Carbon Dioxide Level JEFF ([facility]) calcium level 9.7 mg/dL 8.5-10.1 Calcium Level JEFF ( [facility]) ID Date Data Source [id number] 08/09/2020 12:40:00 PM EDT JEFF ([facility]) Name Value Range Interpretation Code Description Data Becky rce(s) Supporting Document(s) ALT/SGPT 39 U/L 12-78 ALT/SGPT JEFF ([facility]) alkaline phosphatase 101 U/L 45-117 Alkaline Phosph atase JEFF ([facility]) AST/SGOT 24 U/L 7-37 AST/SGOT JEFF ([facility]) bilirubin,total 0.4 mg/dL 0.2-1.0 Bilirubin,total ATHE ([facility]) bilirubin,direct 0.1 mg/dL 0.0-0.2 Bilirubin,direct AT [facility] ([facility]) albumin 3.9 gm/dL 3.2-5.2 Albumin JEFF ([facility]) total protein 7.6 gm/dL 6.4-8.2 Total Protein JEFF ( [facility]) albumin/globulin ratio Albumin/globu bianca Ratio JEFF ([facility]) ID Date Data Source [id number] 08/09/2020 12:40:00 PM EDT JEFF ([facility]) Name Value Range Interpretation Code Description Data Becky rce(s) Supporting Document(s) hemoglobin 15.5 g/dL 13.5-17.5 Hemoglobin JEFF ([facility]) red blood count 5.23 10 4.30-6.10 Red Blood Count ATHE ([facility]) white blood count 7.4 10 4.0-10.0 White Blood Count JEFF ([facility]) mean corpuscular hemoglobin 29.6 pg 27.0-33.0 Mean Cor puscular Hemoglobin JEFF ([facility]) mean corpuscular volume 88.0 fL 80.0-96.0 Mean Corpusc ular Volume JEFF ([facility]) hematocrit 46.0 % 42.0-52.0 Hematocrit JEFF ([facility]) mean corpuscular HGB conc 33.7 g/dL 32.0-36.5 Mean Corpu scular HGB Conc JEFF ([facility]) red cell distribution width 12.5 % 11.5-14.5 Red Cell Distribution Width JEFF ([facility]) lymph % 23.0 % 24.0-44.0 Below low normal Lymph % JEFF ( [facility]) neutrophils % 60.8 % 36.0-66.0 Neutrophils % SULLIVAN ( [facility]) platelet count, automated 186 10 150-450 Platelet C ount, Automated JEFF ([facility]) eos % 5.8 % 0.0-3.0 Above high normal Eos % JEFF ([facility]) baso % 1.0 % 0.0-1.0 Baso % JEFF ([facility]) mono % 7.6 % 0.0-5.0 Above high normal [place] % JEFF ([facility]) neutrophils # 4.5 10 1.5-8.5 Neutrophils # SULLIVAN ( [facility]) nucleated red blood cell % 0.0 % 0-0 Nucleated Red Blood Cell % JEFF ([facility]) immature granulocyte % 1.8 % 0-3.0 Immature Gran ulocyte % JEFF ([facility]) eos # 0.4 10 0.0-0.5 Eos # JEFF ([facility]) lymph # 1.7 10 1.5-5.0 Lymph # JEFF ([facility]) mono # 0.6 10 0.0-0.8 [place] # JEFF ([facility]) baso # 0.1 10 0.0-0.2 Baso # JEFF ([facility]) ID Date Data Source [id number] 08/09/2020 12:40:00 PM EDT SULL[place]AN ([facility]) Name Value Range Interpretation Code Description Data Becky rce(s) Supporting Document(s) venous pH 7.320 units 7.330-7.430 Below low normal Venous pH JEFF ([facility]) venous partial pressure CO2 42.6 mmHg 38.0-50.0 Venous P artial Pressure CO2 JFEF ([facility]) venous total CO2 22.8 mEq/L 24.0-28.0 Below low normal Venous Total CO2 JEFF ([facility]) venous HCO3 21.5 mEq/L 23.0-27.0 Below low normal Venous HCO3 JEFF ([facility]) venous partial pressure O2 62.5 mmHg 30.0-50.0 Above high nor mal Venous Partial Pressure O2 SULL[place]AN ([facility]) venous O2 saturation 91.2 % 60.0-80.0 Above high normal Venous O 2 Saturation SULL[place]AN ([facility]) venous standard HCO3 20.7 mEq/L Venous Standard HCO3 S[place]AN ([facility]) venous base excess -2.0-2.0 Below low normal Venous Base Excess S[place]AN ([facility]) ID Date Data Source [id number] 08/09/2020 12:40:00 PM EDT S[place]AN ([facility]) Name Value Range Interpretation Code Description Data Becky rce(s) Supporting Document(s) Hemoglobin A1c/Hemoglobin.total in Blood 8.6 % Hemoglobin a1C S[place]AN ([facility]) estimated average glucose 200 mg/dL 60-110 Above high norm al Estimated Average Glucose SULLIVAN ([facility]) ID Date Data Source [id number] 08/09/2020 12:40:00 PM EDT JEFF ([facility]) Name Value Range Interpretation Code Description Data Becky rce(s) Supporting Document(s) acetone/ketone 1.22 mg/dL <2.81 Acetone/ketone S[place]AN ([facility]) ID Date Data Source [id number] 08/09/2020 12:40:00 PM EDT S[place]AN ([facility]) Name Value Range Interpretation Code Description Data Becky rce(s) Supporting Document(s) glucose, fasting 210 mg/dL 70-100 Above high normal Glucose, Fas ting JEFF ([facility]) glomerular filtration rate > 60.0 >60 Glomerula r Filtration Rate JEFF ([facility]) blood urea nitrogen 16 mg/dL 7-18 Blood Urea Nitro gen JEFF ([facility]) sodium level 135 mEq/L 136-145 Below low normal Sodium Level ATHE NA ([facility]) creatinine for GFR 1.03 mg/dL 0.70-1.30 Creatinine for GF R JEFF ([facility]) chloride level 101 mEq/L 98-107 Chloride Level S[place]AN ([facility]) carbon dioxide level 28 mEq/L 21-32 Carbon Dioxide Level SULLIVAN ([facility]) potassium serum 4.0 mEq/L 3.5-5.1 Potassium Serum ATHE NA ([facility]) calcium level 9.7 mg/dL 8.5-10.1 Calcium Level SULLIVAN ( [facility]) anion gap 6 mEq/L 8-16 Below low normal Anion Gap SULLIVAN ( [facility]) ID Date Data Source [id number] 08/09/2020 12:40:00 PM EDT S[place]AN ([facility]) Name Value Range Interpretation Code Description Data Becky rce(s) Supporting Document(s) AST/SGOT 24 U/L 7-37 AST/SGOT JEFF ([facility]) ALT/SGPT 39 U/L 12-78 ALT/SGPT JEFF ([facility]) alkaline phosphatase 101 U/L 45-117 Alkaline Phosph atase JEFF ([facility]) bilirubin,total 0.4 mg/dL 0.2-1.0 Bilirubin,total ATHE ([facility]) total protein 7.6 gm/dL 6.4-8.2 Total Protein SULLIVAN ( [facility]) bilirubin,direct 0.1 mg/dL 0.0-0.2 Bilirubin,direct AT DION[place]IO ([facility]) albumin 3.9 gm/dL 3.2-5.2 Albumin JEFF ([facility]) albumin/globulin ratio Albumin/globu bianca Ratio JEFF ([facility]) ID Date Data Source [id number] 08/09/2020 12:40:00 PM EDT JEFF ([facility]) Name Value Range Interpretation Code Description Data Becky rce(s) Supporting Document(s) red blood count 5.23 10 4.30-6.10 Red Blood Count ATHE NA ([facility]) white blood count 7.4 10 4.0-10.0 White Blood Count JEFF ([facility]) hemoglobin 15.5 g/dL 13.5-17.5 Hemoglobin JEFF ([facility]) mean corpuscular volume 88.0 fL 80.0-96.0 Mean Corpusc ular Volume JEFF ([facility]) hematocrit 46.0 % 42.0-52.0 Hematocrit JEFF ([facility]) red cell distribution width 12.5 % 11.5-14.5 Red Cell Distribution Width JEFF ([facility]) mean corpuscular HGB conc 33.7 g/dL 32.0-36.5 Mean Corpu scular HGB Conc JEFF ([facility]) mean corpuscular hemoglobin 29.6 pg 27.0-33.0 Mean Cor puscular Hemoglobin JEFF ([facility]) mono % 7.6 % 0.0-5.0 Above high normal [place] % JEFF ([facility]) neutrophils % 60.8 % 36.0-66.0 Neutrophils % JEFF ( [facility]) lymph % 23.0 % 24.0-44.0 Below low normal Lymph % JEFF ( [facility]) platelet count, automated 186 10 150-450 Platelet C ount, Automated JEFF ([facility]) eos % 5.8 % 0.0-3.0 Above high normal Eos % JEFF ([facility]) baso % 1.0 % 0.0-1.0 Baso % JEFF ([facility]) immature granulocyte % 1.8 % 0-3.0 Immature Gran ulocyte % JEFF ([facility]) neutrophils # 4.5 10 1.5-8.5 Neutrophils # JEFF ( [facility]) nucleated red blood cell % 0.0 % 0-0 Nucleated Red Blood Cell % JEFF ([facility]) lymph # 1.7 10 1.5-5.0 Lymph # JEFF ([facility]) baso # 0.1 10 0.0-0.2 Baso # JEFF ([facility]) mono # 0.6 10 0.0-0.8 [place] # JEFF ([facility]) eos # 0.4 10 0.0-0.5 Eos # JEFF ([facility]) ID Date Data Source [id number] 08/09/2020 12:40:00 PM EDT S[place]AN ([facility]) Name Value Range Interpretation Code Description Data Becky rce(s) Supporting Document(s) venous pH 7.320 units 7.330-7.430 Below low normal Venous pH JEFF ([facility]) venous partial pressure CO2 42.6 mmHg 38.0-50.0 Venous P artial Pressure CO2 JEFF ([facility]) venous HCO3 21.5 mEq/L 23.0-27.0 Below low normal Venous HCO3 JEFF ([facility]) venous total CO2 22.8 mEq/L 24.0-28.0 Below low normal Venous Total CO2 JEFF ([facility]) venous partial pressure O2 62.5 mmHg 30.0-50.0 Above high nor mal Venous Partial Pressure O2 JEFF ([facility]) venous standard HCO3 20.7 mEq/L Venous Standard HCO3 JEFF ([facility]) venous base excess -2.0-2.0 Below low normal Venous Base Excess JEFF ([facility]) venous O2 saturation 91.2 % 60.0-80.0 Above high normal Venous O 2 Saturation JEFF ([facility]) ID Date Data Source [id number] 08/09/2020 12:40:00 PM EDT JEFF ([facility]) Name Value Range Interpretation Code Description Data Becky rce(s) Supporting Document(s) estimated average glucose 200 mg/dL 60-110 Above high norm al Estimated Average Glucose SULLIVAN ([facility]) Hemoglobin A1c/Hemoglobin.total in Blood 8.6 % Hemoglobin a1C S[place]AN ([facility]) ID Date Data Source [id number] 08/09/2020 12:40:00 PM EDT SULL[place]AN ([facility]) Name Value Range Interpretation Code Description Data Becky rce(s) Supporting Document(s) acetone/ketone 1.22 mg/dL <2.81 Acetone/ketone S[place]AN ([facility]) ID Date Data Source [id number] 08/09/2020 12:40:00 PM EDT S[place]AN ([facility]) Name Value Range Interpretation Code Description Data Becky rce(s) Supporting Document(s) creatinine for GFR 1.03 mg/dL 0.70-1.30 Creatinine for GF R SULL[place]AN ([facility]) blood urea nitrogen 16 mg/dL 7-18 Blood Urea Nitro gen SULLIVAN ([facility]) glomerular filtration rate > 60.0 >60 Glomerula r Filtration Rate S[place]AN ([facility]) glucose, fasting 210 mg/dL 70-100 Above high normal Glucose, Fas ting JEFF ([facility]) sodium level 135 mEq/L 136-145 Below low normal Sodium Level ATHE NA ([facility]) carbon dioxide level 28 mEq/L 21-32 Carbon Dioxide Level S[place]AN ([facility]) potassium serum 4.0 mEq/L 3.5-5.1 Potassium Serum ATHE NA ([facility]) chloride level 101 mEq/L 98-107 Chloride Level SULL[place]AN ([facility]) anion gap 6 mEq/L 8-16 Below low normal Anion Gap SULL[place]AN ( [facility]) calcium level 9.7 mg/dL 8.5-10.1 Calcium Level [facility]) ID Date Data Source [id number] 08/09/2020 12:40:00 PM EDT JEFF ([facility]) Name Value Range Interpretation Code Description Data Becky rce(s) Supporting Document(s) ALT/SGPT 39 U/L 12-78 ALT/SGPT JEFF ([facility]) AST/SGOT 24 U/L 7-37 AST/SGOT JEFF ([facility]) bilirubin,direct 0.1 mg/dL 0.0-0.2 Bilirubin,direct AT [place] ([facility]) total protein 7.6 gm/dL 6.4-8.2 Total Protein JEFF ( [facility]) bilirubin,total 0.4 mg/dL 0.2-1.0 Bilirubin,total ATHE NA ([facility]) alkaline phosphatase 101 U/L 45-117 Alkaline Phosph atase JEFF ([facility]) albumin/globulin ratio Albumin/globu bianca Ratio JEFF ([facility]) albumin 3.9 gm/dL 3.2-5.2 Albumin JEFF ([facility]) ID Date Data Source [id number] 08/09/2020 12:40:00 PM EDT JEFF ([facility]) Name Value Range Interpretation Code Description Data Becky rce(s) Supporting Document(s) white blood count 7.4 10 4.0-10.0 White Blood Count JEFF ([facility]) hemoglobin 15.5 g/dL 13.5-17.5 Hemoglobin JEFF ([facility]) mean corpuscular volume 88.0 fL 80.0-96.0 Mean Corpusc ular Volume JEFF ([facility]) red blood count 5.23 10 4.30-6.10 Red Blood Count ATHE NA ([facility]) hematocrit 46.0 % 42.0-52.0 Hematocrit JEFF ([facility]) mean corpuscular HGB conc 33.7 g/dL 32.0-36.5 Mean Corpu scular HGB Conc JEFF ([facility]) mean corpuscular hemoglobin 29.6 pg 27.0-33.0 Mean Cor puscular Hemoglobin JEFF ([facility]) red cell distribution width 12.5 % 11.5-14.5 Red Cell Distribution Width JEFF ([facility]) mono % 7.6 % 0.0-5.0 Above high normal [place] % JEFF ([facility]) platelet count, automated 186 10 150-450 Platelet C ount, Automated JEFF ([facility]) neutrophils % 60.8 % 36.0-66.0 Neutrophils % JEFF ( [facility]) lymph % 23.0 % 24.0-44.0 Below low normal Lymph % SULLIVAN ( [facility]) immature granulocyte % 1.8 % 0-3.0 Immature Gran ulocyte % SULLIVAN ([facility]) baso % 1.0 % 0.0-1.0 Baso % S[place]AN ([facility]) eos % 5.8 % 0.0-3.0 Above high normal Eos % SULL[place]AN ([facility]) nucleated red blood cell % 0.0 % 0-0 Nucleated Red Blood Cell % SULLIVAN ([facility]) eos # 0.4 10 0.0-0.5 Eos # JEFF ([facility]) lymph # 1.7 10 1.5-5.0 Lymph # JEFF ([facility]) neutrophils # 4.5 10 1.5-8.5 Neutrophils # JEFF ( [facility]) mono # 0.6 10 0.0-0.8 [place] # JEFF ([facility]) baso # 0.1 10 0.0-0.2 Baso # JEFF ([facility]) ID Date Data Source [id number] 08/09/2020 12:40:00 PM EDT S[place]AN ([facility]) Name Value Range Interpretation Code Description Data Becky rce(s) Supporting Document(s) venous partial pressure CO2 42.6 mmHg 38.0-50.0 Venous P artial Pressure CO2 JEFF ([facility]) venous pH 7.320 units 7.330-7.430 Below low normal Venous pH S[place]AN ([facility]) venous total CO2 22.8 mEq/L 24.0-28.0 Below low normal Venous Total CO2 JEFF ([facility]) venous partial pressure O2 62.5 mmHg 30.0-50.0 Above high nor mal Venous Partial Pressure O2 JEFF ([facility]) venous HCO3 21.5 mEq/L 23.0-27.0 Below low normal Venous HCO3 JEFF ([facility]) venous standard HCO3 20.7 mEq/L Venous Standard HCO3 JEFF ([facility]) venous base excess -2.0-2.0 Below low normal Venous Base Excess S[place]AN ([facility]) venous O2 saturation 91.2 % 60.0-80.0 Above high normal Venous O 2 Saturation [place]AN ([facility]) ID Date Data Source [id number] 08/09/2020 12:40:00 PM EDT [facility]) Name Value Range Interpretation Code Description Data Becky rce(s) Supporting Document(s) acetone/ketone 1.22 mg/dL <2.81 Acetone/ketone [facility]) ID Date Data Source [id number] 08/09/2020 12:40:00 PM EDT [facility]) Name Value Range Interpretation Code Description Data Becky rce(s) Supporting Document(s) glucose, fasting 210 mg/dL 70-100 Above high normal Glucose, Fas ting JEFF ([facility]) blood urea nitrogen 16 mg/dL 7-18 Blood Urea Nitro gen JEFF ([facility]) glomerular filtration rate > 60.0 >60 Glomerula r Filtration Rate JEFF ([facility]) creatinine for GFR 1.03 mg/dL 0.70-1.30 Creatinine for GF R JEFF ([facility]) chloride level 101 mEq/L 98-107 Chloride Level JEFF ([facility]) carbon dioxide level 28 mEq/L 21-32 Carbon Dioxide Level JEFF ([facility]) potassium serum 4.0 mEq/L 3.5-5.1 Potassium Serum ATH NA ([facility]) sodium level 135 mEq/L 136-145 Below low normal Sodium Level ATHE NA ([facility]) anion gap 6 mEq/L 8-16 Below low normal Anion Gap JEFF ( [facility]) calcium level 9.7 mg/dL 8.5-10.1 Calcium Level JEFF ( [facility]) ID Date Data Source [id number] 08/09/2020 12:40:00 PM EDT JEFF ([facility]) Name Value Range Interpretation Code Description Data Becky rce(s) Supporting Document(s) AST/SGOT 24 U/L 7-37 AST/SGOT JEFF ([facility]) ALT/SGPT 39 U/L 12-78 ALT/SGPT JEFF ([facility]) bilirubin,total 0.4 mg/dL 0.2-1.0 Bilirubin,total ATHE ([facility]) total protein 7.6 gm/dL 6.4-8.2 Total Protein JEFF ( [facility]) bilirubin,direct 0.1 mg/dL 0.0-0.2 Bilirubin,direct AT [place] ([facility]) alkaline phosphatase 101 U/L 45-117 Alkaline Phosph atase JEFF ([facility]) albumin 3.9 gm/dL 3.2-5.2 Albumin JEFF ([facility]) albumin/globulin ratio Albumin/globu bianca Ratio JEFF ([facility]) ID Date Data Source [id number] 08/09/2020 12:40:00 PM EDT JEFF ([facility]) Name Value Range Interpretation Code Description Data Becky rce(s) Supporting Document(s) white blood count 7.4 10 4.0-10.0 White Blood Count JEFF ([facility]) red blood count 5.23 10 4.30-6.10 Red Blood Count ATHE NA ([facility]) hemoglobin 15.5 g/dL 13.5-17.5 Hemoglobin JEFF ([facility]) mean corpuscular hemoglobin 29.6 pg 27.0-33.0 Mean Cor puscular Hemoglobin JEFF ([facility]) mean corpuscular volume 88.0 fL 80.0-96.0 Mean Corpusc ular Volume JEFF ([facility]) hematocrit 46.0 % 42.0-52.0 Hematocrit JEFF ([facility]) mean corpuscular HGB conc 33.7 g/dL 32.0-36.5 Mean Corpu scular HGB Conc JEFF ([facility]) platelet count, automated 186 10 150-450 Platelet C ount, Automated JEFF ([facility]) red cell distribution width 12.5 % 11.5-14.5 Red Cell Distribution Width JEFF ([facility]) neutrophils % 60.8 % 36.0-66.0 Neutrophils % SULLIVAN ( [facility]) lymph % 23.0 % 24.0-44.0 Below low normal Lymph % SULLIVAN ( [facility]) mono % 7.6 % 0.0-5.0 Above high normal [place] % JEFF ([facility]) eos % 5.8 % 0.0-3.0 Above high normal Eos % JEFF ([facility]) baso % 1.0 % 0.0-1.0 Baso % JEFF ([facility]) immature granulocyte % 1.8 % 0-3.0 Immature Gran ulocyte % SULLIVAN ([facility]) nucleated red blood cell % 0.0 % 0-0 Nucleated Red Blood Cell % JEFF ([facility]) neutrophils # 4.5 10 1.5-8.5 Neutrophils # JEFF ( [facility]) mono # 0.6 10 0.0-0.8 [place] # JEFF ([facility]) lymph # 1.7 10 1.5-5.0 Lymph # JEFF ([facility]) eos # 0.4 10 0.0-0.5 Eos # JEFF ([facility]) baso # 0.1 10 0.0-0.2 Baso # JEFF ([facility]) ID Date Data Source [id number] 08/09/2020 12:40:00 PM EDT JEFF ([facility]) Name Value Range Interpretation Code Description Data Becky rce(s) Supporting Document(s) venous pH 7.320 units 7.330-7.430 Below low normal Venous pH JEFF ([facility]) venous partial pressure CO2 42.6 mmHg 38.0-50.0 Venous P artial Pressure CO2 JEFF ([facility]) venous partial pressure O2 62.5 mmHg 30.0-50.0 Above high nor mal Venous Partial Pressure O2 JEFF ([facility]) venous total CO2 22.8 mEq/L 24.0-28.0 Below low normal Venous Total CO2 JEFF ([facility]) venous HCO3 21.5 mEq/L 23.0-27.0 Below low normal Venous HCO3 JEFF ([facility]) venous O2 saturation 91.2 % 60.0-80.0 Above high normal Venous O 2 Saturation JEFF ([facility]) venous base excess -2.0-2.0 Below low normal Venous Base Excess JEFF ([facility]) venous standard HCO3 20.7 mEq/L Venous Standard HCO3 [facility] ([facility] [facility] ID Date Data Source [id number] 08/09/2020 12:40:00 PM EDT JEFF ([facility]) Name Value Range Interpretation Code Description Data Becky rce(s) Supporting Document(s) Hemoglobin A1c/Hemoglobin.total in Blood 8.6 % Hemoglobin a1C JEFF ([facility]) estimated average glucose 200 mg/dL 60-110 Above high norm al Estimated Average Glucose JEFF ([facility]) ID Date Data Source [id number] 08/09/2020 12:40:00 PM EDT JEFF ([facility]) Name Value Range Interpretation Code Description Data Becky rce(s) Supporting Document(s) acetone/ketone 1.22 mg/dL <2.81 Acetone/ketone JEFF ([facility]) ID Date Data Source [id number] 08/09/2020 12:40:00 PM EDT JEFF ([facility]) Name Value Range Interpretation Code Description Data Becky rce(s) Supporting Document(s) blood urea nitrogen 16 mg/dL 7-18 Blood Urea Nitro gen JEFF ([facility]) glucose, fasting 210 mg/dL 70-100 Above high normal Glucose, Fas ting JEFF ([facility]) creatinine for GFR 1.03 mg/dL 0.70-1.30 Creatinine for GF R JEFF ([facility]) potassium serum 4.0 mEq/L 3.5-5.1 Potassium Serum ATHE NA ([facility]) sodium level 135 mEq/L 136-145 Below low normal Sodium Level ATHE NA ([facility]) glomerular filtration rate > 60.0 >60 Glomerula r Filtration Rate JEFF ([facility]) calcium level 9.7 mg/dL 8.5-10.1 Calcium Level JEFF ( [facility]) anion gap 6 mEq/L 8-16 Below low normal Anion Gap JEFF ( [facility]) carbon dioxide level 28 mEq/L 21-32 Carbon Dioxide Level JEFF ([facility]) chloride level 101 mEq/L 98-107 Chloride Level [place] ([facility]) ID Date Data Source [id number] 08/09/2020 12:40:00 PM EDT JEFF ([facility]) Name Value Range Interpretation Code Description Data Becky rce(s) Supporting Document(s) AST/SGOT 24 U/L 7-37 AST/SGOT JEFF ([facility]) bilirubin,direct 0.1 mg/dL 0.0-0.2 Bilirubin,direct AT DIONICIO ([facility]) alkaline phosphatase 101 U/L 45-117 Alkaline Phosph atase JEFF ([facility]) ALT/SGPT 39 U/L 12-78 ALT/SGPT [place] ([facility]) bilirubin,total 0.4 mg/dL 0.2-1.0 Bilirubin,total ATHE ([facility]) albumin 3.9 gm/dL 3.2-5.2 Albumin [place] ([facility]) total protein 7.6 gm/dL 6.4-8.2 Total Protein JEFF ( [facility]) albumin/globulin ratio Albumin/globu bianca Ratio JEFF ([facility]) ID Date Data Source [id number] 08/09/2020 12:40:00 PM EDT JEFF ([facility]) Name Value Range Interpretation Code Description Data Becky rce(s) Supporting Document(s) white blood count 7.4 10 4.0-10.0 White Blood Count JEFF ([facility]) red blood count 5.23 10 4.30-6.10 Red Blood Count ATHE ([facility]) hematocrit 46.0 % 42.0-52.0 Hematocrit JEFF ([facility]) mean corpuscular volume 88.0 fL 80.0-96.0 Mean Corpusc ular Volume JEFF ([facility]) hemoglobin 15.5 g/dL 13.5-17.5 Hemoglobin JEFF ([facility]) mean corpuscular hemoglobin 29.6 pg 27.0-33.0 Mean Cor puscular Hemoglobin JEFF ([facility]) mean corpuscular HGB conc 33.7 g/dL 32.0-36.5 Mean Corpu scular HGB Conc JEFF ([facility]) red cell distribution width 12.5 % 11.5-14.5 Red Cell Distribution Width JEFF ([facility]) lymph % 23.0 % 24.0-44.0 Below low normal Lymph % JEFF ( [facility]) neutrophils % 60.8 % 36.0-66.0 Neutrophils % JEFF ( [facility]) platelet count, automated 186 10 150-450 Platelet C ount, Automated JEFF ([facility]) mono % 7.6 % 0.0-5.0 Above high normal [place] % JEFF ([facility]) nucleated red blood cell % 0.0 % 0-0 Nucleated Red Blood Cell % JEFF ([facility]) baso % 1.0 % 0.0-1.0 Baso % JEFF ([facility]) immature granulocyte % 1.8 % 0-3.0 Immature Gran ulocyte % JEFF ([facility]) eos % 5.8 % 0.0-3.0 Above high normal Eos % JEFF ([facility]) lymph # 1.7 10 1.5-5.0 Lymph # JEFF ([facility]) neutrophils # 4.5 10 1.5-8.5 Neutrophils # JEFF ( [facility]) mono # 0.6 10 0.0-0.8 [place] # JEFF ([facility]) baso # 0.1 10 0.0-0.2 Baso # JEFF ([facility]) eos # 0.4 10 0.0-0.5 Eos # JEFF ([facility]) ID Date Data Source [id number] 08/09/2020 12:40:00 PM EDT [place] ([facility]) Name Value Range Interpretation Code Description Data Becky rce(s) Supporting Document(s) venous pH 7.320 units 7.330-7.430 Below low normal Venous pH JEFF ([facility]) venous partial pressure O2 62.5 mmHg 30.0-50.0 Above high nor mal Venous Partial Pressure O2 JEFF ([facility]) venous partial pressure CO2 42.6 mmHg 38.0-50.0 Venous P artial Pressure CO2 JEFF ([facility]) venous base excess -2.0-2.0 Below low normal Venous Base Excess JEFF ([facility]) venous total CO2 22.8 mEq/L 24.0-28.0 Below low normal Venous Total CO2 JEFF ([facility]) venous HCO3 21.5 mEq/L 23.0-27.0 Below low normal Venous HCO3 JEFF ([facility]) venous O2 saturation 91.2 % 60.0-80.0 Above high normal Venous O 2 Saturation JEFF ([facility]) venous standard HCO3 20.7 mEq/L Venous Standard HCO3 JEFF ([facility]) ID Date Data Source [id number] 08/09/2020 12:40:00 PM EDT [place] ([facility]) Name Value Range Interpretation Code Description Data Becky rce(s) Supporting Document(s) Hemoglobin A1c/Hemoglobin.total in Blood 8.6 % Hemoglobin a1C JEFF ([facility]) estimated average glucose 200 mg/dL 60-110 Above high norm al Estimated Average Glucose [place] ([facility]) ID Date Data Source [id number] 08/09/2020 12:40:00 PM EDT JEFF ([facility]) Name Value Range Interpretation Code Description Data Becky rce(s) Supporting Document(s) acetone/ketone 1.22 mg/dL <2.81 Acetone/ketone [place] ([facility]) ID Date Data Source [id number] 08/09/2020 12:40:00 PM EDT [place] ([facility]) Name Value Range Interpretation Code Description Data Becky rce(s) Supporting Document(s) glucose, fasting 210 mg/dL 70-100 Above high normal Glucose, Fas ting JEFF ([facility]) blood urea nitrogen 16 mg/dL 7-18 Blood Urea Nitro gen JEFF ([facility]) sodium level 135 mEq/L 136-145 Below low normal Sodium Level ATHE NA ([facility]) glomerular filtration rate > 60.0 >60 Glomerula r Filtration Rate JEFF ([facility]) creatinine for GFR 1.03 mg/dL 0.70-1.30 Creatinine for GF R JEFF ([facility]) potassium serum 4.0 mEq/L 3.5-5.1 Potassium Serum ATHE NA ([facility]) chloride level 101 mEq/L 98-107 Chloride Level JEFF ([facility]) carbon dioxide level 28 mEq/L 21-32 Carbon Dioxide Level JEFF ([facility]) anion gap 6 mEq/L 8-16 Below low normal Anion Gap JEFF ( [facility]) calcium level 9.7 mg/dL 8.5-10.1 Calcium Level [place] ( [facility]) ID Date Data Source [id number] 08/09/2020 12:40:00 PM EDT JEFF ([facility]) Name Value Range Interpretation Code Description Data Becky rce(s) Supporting Document(s) AST/SGOT 24 U/L 7-37 AST/SGOT JEFF ([facility]) bilirubin,total 0.4 mg/dL 0.2-1.0 Bilirubin,total ATHE NA ([facility]) alkaline phosphatase 101 U/L 45-117 Alkaline Phosph atase JEFF ([facility]) bilirubin,direct 0.1 mg/dL 0.0-0.2 Bilirubin,direct AT DIONICIO [facility]) ALT/SGPT 39 U/L 12-78 ALT/SGPT JEFF ([facility]) total protein 7.6 gm/dL 6.4-8.2 Total Protein JEFF ( [facility]) albumin 3.9 gm/dL 3.2-5.2 Albumin JEFF ([facility]) albumin/globulin ratio Albumin/globu bianca Ratio JEFF ([facility]) ID Date Data Source [id number] 08/09/2020 12:40:00 PM EDT JEFF ([facility]) Name Value Range Interpretation Code Description Data Becky rce(s) Supporting Document(s) red blood count 5.23 10 4.30-6.10 Red Blood Count ATHE NA ([facility]) white blood count 7.4 10 4.0-10.0 White Blood Count JEFF ([facility]) hemoglobin 15.5 g/dL 13.5-17.5 Hemoglobin JEFF ([facility]) mean corpuscular volume 88.0 fL 80.0-96.0 Mean Corpusc ular Volume JEFF ([facility]) mean corpuscular hemoglobin 29.6 pg 27.0-33.0 Mean Cor puscular Hemoglobin JEFF ([facility]) hematocrit 46.0 % 42.0-52.0 Hematocrit JEFF ([facility]) red cell distribution width 12.5 % 11.5-14.5 Red Cell Distribution Width JEFF ([facility]) platelet count, automated 186 10 150-450 Platelet C ount, Automated JEFF ([facility]) mean corpuscular HGB conc 33.7 g/dL 32.0-36.5 Mean Corpu scular HGB Conc JEFF ([facility]) mono % 7.6 % 0.0-5.0 Above high normal [place] % JEFF ([facility]) neutrophils % 60.8 % 36.0-66.0 Neutrophils % JEFF ( [facility]) lymph % 23.0 % 24.0-44.0 Below low normal Lymph % JEFF ( [facility]) eos % 5.8 % 0.0-3.0 Above high normal Eos % [place] ([facility]) immature granulocyte % 1.8 % 0-3.0 Immature Gran ulocyte % JEFF ([facility]) baso % 1.0 % 0.0-1.0 Baso % JEFF ([facility]) nucleated red blood cell % 0.0 % 0-0 Nucleated Red Blood Cell % JEFF ([facility]) neutrophils # 4.5 10 1.5-8.5 Neutrophils # JEFF ( [facility]) lymph # 1.7 10 1.5-5.0 Lymph # JEFF ([facility]) mono # 0.6 10 0.0-0.8 [place] # JEFF ([facility]) eos # 0.4 10 0.0-0.5 Eos # JEFF ([facility]) baso # 0.1 10 0.0-0.2 Baso # JEFF ([facility]) ID Date Data Source [id number] 08/09/2020 12:40:00 PM EDT [place] ([facility]) Name Value Range Interpretation Code Description Data Becky rce(s) Supporting Document(s) venous pH 7.320 units 7.330-7.430 Below low normal Venous pH [place] ([facility]) venous partial pressure O2 62.5 mmHg 30.0-50.0 Above high nor mal Venous Partial Pressure O2 JEFF ([facility]) venous partial pressure CO2 42.6 mmHg 38.0-50.0 Venous P artial Pressure CO2 JEFF ([facility]) venous base excess -2.0-2.0 Below low normal Venous Base Excess JEFF ([facility]) venous HCO3 21.5 mEq/L 23.0-27.0 Below low normal Venous HCO3 JEFF ([facility]) venous total CO2 22.8 mEq/L 24.0-28.0 Below low normal Venous Total CO2 JEFF ([facility]) venous standard HCO3 20.7 mEq/L Venous Standard HCO3 [place] ([facility]) venous O2 saturation 91.2 % 60.0-80.0 Above high normal Venous O 2 Saturation [place] ([facility]) ID Date Data Source [id number] 08/09/2020 12:40:00 PM EDT [place] ([facility]) Name Value Range Interpretation Code Description Data Becky rce(s) Supporting Document(s) Hemoglobin A1c/Hemoglobin.total in Blood 8.6 % Hemoglobin a1C [place] ([facility]) estimated average glucose 200 mg/dL 60-110 Above high norm al Estimated Average Glucose [place] ([facility]) ID Date Data Source [id number] 08/09/2020 12:40:00 PM EDT [place] ([facility]) Name Value Range Interpretation Code Description Data Becky rce(s) Supporting Document(s) acetone/ketone 1.22 mg/dL <2.81 Acetone/ketone [place] ([facility]) ID Date Data Source [id number] 08/09/2020 12:40:00 PM EDT [place] ([facility]) Name Value Range Interpretation Code Description Data Becky rce(s) Supporting Document(s) glucose, fasting 210 mg/dL 70-100 Above high normal Glucose, Fas ting JEFF ([facility]) sodium level 135 mEq/L 136-145 Below low normal Sodium Level ATHE NA ([facility]) glomerular filtration rate > 60.0 >60 Glomerula r Filtration Rate JEFF ([facility]) creatinine for GFR 1.03 mg/dL 0.70-1.30 Creatinine for GF R JEFF ([facility]) blood urea nitrogen 16 mg/dL 7-18 Blood Urea Nitro gen JEFF ([facility]) anion gap 6 mEq/L 8-16 Below low normal Anion Gap JEFF ( [facility]) chloride level 101 mEq/L 98-107 Chloride Level JEFF ([facility]) carbon dioxide level 28 mEq/L 21-32 Carbon Dioxide Level JEFF ([facility]) potassium serum 4.0 mEq/L 3.5-5.1 Potassium Serum ATHE NA ([facility]) calcium level 9.7 mg/dL 8.5-10.1 Calcium Level JEFF ( [facility]) ID Date Data Source [id number] 08/09/2020 12:40:00 PM EDT JEFF ([facility]) Name Value Range Interpretation Code Description Data Becky rce(s) Supporting Document(s) AST/SGOT 24 U/L 7-37 AST/SGOT JEFF ([facility]) ALT/SGPT 39 U/L 12-78 ALT/SGPT JEFF ([facility]) alkaline phosphatase 101 U/L 45-117 Alkaline Phosph atase JEFF ([facility]) bilirubin,total 0.4 mg/dL 0.2-1.0 Bilirubin,total ATHE NA ([facility]) total protein 7.6 gm/dL 6.4-8.2 Total Protein JEFF ( [facility]) albumin/globulin ratio Albumin/globu bianca Ratio JEFF ([facility]) albumin 3.9 gm/dL 3.2-5.2 Albumin JEFF ([facility]) bilirubin,direct 0.1 mg/dL 0.0-0.2 Bilirubin,direct AT DIONICIO [facility]) ID Date Data Source [id number] 08/09/2020 12:40:00 PM EDT JEFF ([facility]) Name Value Range Interpretation Code Description Data Becky rce(s) Supporting Document(s) red blood count 5.23 10 4.30-6.10 Red Blood Count ATHE NA ([facility]) white blood count 7.4 10 4.0-10.0 White Blood Count JEFF ([facility]) mean corpuscular hemoglobin 29.6 pg 27.0-33.0 Mean Cor puscular Hemoglobin JEFF ([facility]) hemoglobin 15.5 g/dL 13.5-17.5 Hemoglobin JEFF ([facility]) hematocrit 46.0 % 42.0-52.0 Hematocrit JEFF ([facility]) mean corpuscular volume 88.0 fL 80.0-96.0 Mean Corpusc ular Volume JEFF ([facility]) red cell distribution width 12.5 % 11.5-14.5 Red Cell Distribution Width JEFF ([facility]) mean corpuscular HGB conc 33.7 g/dL 32.0-36.5 Mean Corpu scular HGB Conc JEFF ([facility]) platelet count, automated 186 10 150-450 Platelet C ount, Automated JEFF ([facility]) neutrophils % 60.8 % 36.0-66.0 Neutrophils % [place] ( [facility]) mono % 7.6 % 0.0-5.0 Above high normal [place] % [place] ([facility]) lymph % 23.0 % 24.0-44.0 Below low normal Lymph % JEFF ( [facility]) nucleated red blood cell % 0.0 % 0-0 Nucleated Red Blood Cell % JEFF ([facility]) eos % 5.8 % 0.0-3.0 Above high normal Eos % [place] ([facility]) immature granulocyte % 1.8 % 0-3.0 Immature Gran ulocyte % JEFF ([facility]) baso % 1.0 % 0.0-1.0 Baso % JEFF ([facility]) neutrophils # 4.5 10 1.5-8.5 Neutrophils # JEFF ( [facility]) mono # 0.6 10 0.0-0.8 [place] # JEFF ([facility]) eos # 0.4 10 0.0-0.5 Eos # JEFF ([facility]) lymph # 1.7 10 1.5-5.0 Lymph # JEFF ([facility]) baso # 0.1 10 0.0-0.2 Baso # JEFF ([facility]) ID Date Data Source [id number] 08/09/2020 12:40:00 PM EDT JEFF ([facility]) Name Value Range Interpretation Code Description Data Becky rce(s) Supporting Document(s) venous pH 7.320 units 7.330-7.430 Below low normal Venous pH JEFF ([facility]) venous partial pressure O2 62.5 mmHg 30.0-50.0 Above high nor mal Venous Partial Pressure O2 JEFF ([facility]) venous partial pressure CO2 42.6 mmHg 38.0-50.0 Venous P artial Pressure CO2 JEFF ([facility]) venous base excess -2.0-2.0 Below low normal Venous Base Excess JEFF ([facility]) venous total CO2 22.8 mEq/L 24.0-28.0 Below low normal Venous Total CO2 JEFF ([facility]) venous standard HCO3 20.7 mEq/L Venous Standard HCO3 JEFF ([facility]) venous HCO3 21.5 mEq/L 23.0-27.0 Below low normal Venous HCO3 JEFF ([facility]) venous O2 saturation 91.2 % 60.0-80.0 Above high normal Venous O 2 Saturation JEFF ([facility]) ID Date Data Source [id number] 08/09/2020 12:40:00 PM EDT JEFF ([facility]) Name Value Range Interpretation Code Description Data Becky rce(s) Supporting Document(s) Hemoglobin A1c/Hemoglobin.total in Blood 8.6 % Hemoglobin a1C JEFF ([facility]) estimated average glucose 200 mg/dL 60-110 Above high norm al Estimated Average Glucose JEFF ([facility]) ID Date Data Source [id number] 08/09/2020 12:40:00 PM EDT [place] ([facility]) Name Value Range Interpretation Code Description Data Becky rce(s) Supporting Document(s) acetone/ketone 1.22 mg/dL <2.81 Acetone/ketone JEFF ([facility]) ID Date Data Source [id number] 08/09/2020 12:40:00 PM EDT JEFF ([facility]) Name Value Range Interpretation Code Description Data Becky rce(s) Supporting Document(s) glucose, fasting 210 mg/dL 70-100 Above high normal Glucose, Fas ting JEFF ([facility]) glomerular filtration rate > 60.0 >60 Glomerula r Filtration Rate JEFF ([facility]) blood urea nitrogen 16 mg/dL 7-18 Blood Urea Nitro gen JEFF ([facility]) creatinine for GFR 1.03 mg/dL 0.70-1.30 Creatinine for GF R JEFF ([facility]) carbon dioxide level 28 mEq/L 21-32 Carbon Dioxide Level JEFF ([facility]) sodium level 135 mEq/L 136-145 Below low normal Sodium Level ATHE NA ([facility]) chloride level 101 mEq/L 98-107 Chloride Level [place] ([facility]) potassium serum 4.0 mEq/L 3.5-5.1 Potassium Serum ATHE NA ([facility]) anion gap 6 mEq/L 8-16 Below low normal Anion Gap JEFF ( [facility]) calcium level 9.7 mg/dL 8.5-10.1 Calcium Level [place] ( [facility]) ID Date Data Source [id number] 08/09/2020 12:40:00 PM EDT [place] ([facility]) Name Value Range Interpretation Code Description Data Becky rce(s) Supporting Document(s) AST/SGOT 24 U/L 7-37 AST/SGOT JEFF ([facility]) ALT/SGPT 39 U/L 12-78 ALT/SGPT JEFF ([facility]) bilirubin,direct 0.1 mg/dL 0.0-0.2 Bilirubin,direct AT [facility] ([facility]) total protein 7.6 gm/dL 6.4-8.2 Total Protein JEFF ( [facility]) alkaline phosphatase 101 U/L 45-117 Alkaline Phosph atase JEFF ([facility]) bilirubin,total 0.4 mg/dL 0.2-1.0 Bilirubin,total ATHE NA ([facility]) albumin 3.9 gm/dL 3.2-5.2 Albumin JEFF ([facility]) albumin/globulin ratio Albumin/globu bianca Ratio JEFF ([facility]) ID Date Data Source [id number] 08/09/2020 12:40:00 PM EDT [place] ([facility]) Name Value Range Interpretation Code Description Data Becky rce(s) Supporting Document(s) red blood count 5.23 10 4.30-6.10 Red Blood Count ATHE ([facility]) hemoglobin 15.5 g/dL 13.5-17.5 Hemoglobin JEFF ([facility]) white blood count 7.4 10 4.0-10.0 White Blood Count JEFF ([facility]) mean corpuscular hemoglobin 29.6 pg 27.0-33.0 Mean Cor puscular Hemoglobin JEFF ([facility]) hematocrit 46.0 % 42.0-52.0 Hematocrit JEFF ([facility]) mean corpuscular volume 88.0 fL 80.0-96.0 Mean Corpusc ular Volume JEFF ([facility]) red cell distribution width 12.5 % 11.5-14.5 Red Cell Distribution Width JEFF ([facility]) mean corpuscular HGB conc 33.7 g/dL 32.0-36.5 Mean Corpu scular HGB Conc JEFF ([facility]) platelet count, automated 186 10 150-450 Platelet C ount, Automated JEFF ([facility]) neutrophils % 60.8 % 36.0-66.0 Neutrophils % JEFF ( [facility]) mono % 7.6 % 0.0-5.0 Above high normal [place] % JEFF ([facility]) eos % 5.8 % 0.0-3.0 Above high normal Eos % JEFF ([facility]) lymph % 23.0 % 24.0-44.0 Below low normal Lymph % JEFF ( [facility]) immature granulocyte % 1.8 % 0-3.0 Immature Gran ulocyte % JEFF ([facility]) neutrophils # 4.5 10 1.5-8.5 Neutrophils # JEFF ( [facility]) nucleated red blood cell % 0.0 % 0-0 Nucleated Red Blood Cell % JEFF ([facility]) baso % 1.0 % 0.0-1.0 Baso % JEFF ([facility]) mono # 0.6 10 0.0-0.8 [place] # JEFF ([facility]) baso # 0.1 10 0.0-0.2 Baso # JEFF ([facility]) eos # 0.4 10 0.0-0.5 Eos # JEFF ([facility]) lymph # 1.7 10 1.5-5.0 Lymph # [facility] [facility] ID Date Data Source [id number] 08/09/2020 12:40:00 PM EDT [place] ([facility]) Name Value Range Interpretation Code Description Data Becky rce(s) Supporting Document(s) venous pH 7.320 units 7.330-7.430 Below low normal Venous pH JEFF ([facility]) venous partial pressure CO2 42.6 mmHg 38.0-50.0 Venous P artial Pressure CO2 JEFF ([facility]) venous HCO3 21.5 mEq/L 23.0-27.0 Below low normal Venous HCO3 JEFF ([facility]) venous partial pressure O2 62.5 mmHg 30.0-50.0 Above high nor mal Venous Partial Pressure O2 JEFF ([facility]) venous total CO2 22.8 mEq/L 24.0-28.0 Below low normal Venous Total CO2 JEFF ([facility]) venous standard HCO3 20.7 mEq/L Venous Standard HCO3 JEFF ([facility]) venous base excess -2.0-2.0 Below low normal Venous Base Excess JEFF ([facility]) venous O2 saturation 91.2 % 60.0-80.0 Above high normal Venous O 2 Saturation JEFF ([facility]) ID Date Data Source [id number] 08/09/2020 12:40:00 PM EDT [place] ([facility]) Name Value Range Interpretation Code Description Data Becky rce(s) Supporting Document(s) Hemoglobin A1c/Hemoglobin.total in Blood 8.6 % Hemoglobin a1C [place] ([facility]) estimated average glucose 200 mg/dL 60-110 Above high norm al Estimated Average Glucose [place] ([facility]) ID Date Data Source [id number] 08/09/2020 12:40:00 PM EDT JEFF ([facility]) Name Value Range Interpretation Code Description Data Becky rce(s) Supporting Document(s) acetone/ketone 1.22 mg/dL <2.81 Acetone/ketone [place] ([facility]) ID Date Data Source [id number] 08/09/2020 12:40:00 PM EDT [place] ([facility]) Name Value Range Interpretation Code Description Data Becky rce(s) Supporting Document(s) glucose, fasting 210 mg/dL 70-100 Above high normal Glucose, Fas ting JEFF ([facility]) sodium level 135 mEq/L 136-145 Below low normal Sodium Level ATHE NA ([facility]) creatinine for GFR 1.03 mg/dL 0.70-1.30 Creatinine for GF R JEFF ([facility]) blood urea nitrogen 16 mg/dL 7-18 Blood Urea Nitro gen JEFF ([facility]) glomerular filtration rate > 60.0 >60 Glomerula r Filtration Rate JEFF ([facility]) calcium level 9.7 mg/dL 8.5-10.1 Calcium Level JEFF ( [facility]) carbon dioxide level 28 mEq/L 21-32 Carbon Dioxide Level JEFF ([facility]) anion gap 6 mEq/L 8-16 Below low normal Anion Gap JEFF ( [facility]) potassium serum 4.0 mEq/L 3.5-5.1 Potassium Serum ATHE ([facility]) chloride level 101 mEq/L 98-107 Chloride Level JEFF ([facility]) ID Date Data Source [id number] 08/09/2020 12:40:00 PM EDT JEFF ([facility]) Name Value Range Interpretation Code Description Data Becky rce(s) Supporting Document(s) alkaline phosphatase 101 U/L 45-117 Alkaline Phosph atase JEFF ([facility]) ALT/SGPT 39 U/L 12-78 ALT/SGPT JEFF ([facility]) bilirubin,total 0.4 mg/dL 0.2-1.0 Bilirubin,total ATHE NA ([facility]) AST/SGOT 24 U/L 7-37 AST/SGOT JEFF ([facility]) albumin 3.9 gm/dL 3.2-5.2 Albumin JEFF ([facility]) albumin/globulin ratio Albumin/globu bianca Ratio JEFF ([facility]) total protein 7.6 gm/dL 6.4-8.2 Total Protein JEFF ( [facility]) bilirubin,direct 0.1 mg/dL 0.0-0.2 Bilirubin,direct AT DIONICIO ([facility]) ID Date Data Source [id number] 08/09/2020 12:40:00 PM EDT JEFF ([facility]) Name Value Range Interpretation Code Description Data Becky rce(s) Supporting Document(s) red blood count 5.23 10 4.30-6.10 Red Blood Count ATHE ([facility]) white blood count 7.4 10 4.0-10.0 White Blood Count JEFF ([facility]) mean corpuscular volume 88.0 fL 80.0-96.0 Mean Corpusc ular Volume JEFF ([facility]) hematocrit 46.0 % 42.0-52.0 Hematocrit JEFF ([facility]) hemoglobin 15.5 g/dL 13.5-17.5 Hemoglobin JEFF ([facility]) mean corpuscular HGB conc 33.7 g/dL 32.0-36.5 Mean Corpu scular HGB Conc JEFF ([facility]) platelet count, automated 186 10 150-450 Platelet C ount, Automated JEFF ([facility]) mean corpuscular hemoglobin 29.6 pg 27.0-33.0 Mean Cor puscular Hemoglobin JEFF ([facility]) red cell distribution width 12.5 % 11.5-14.5 Red Cell Distribution Width JEFF ([facility]) mono % 7.6 % 0.0-5.0 Above high normal [place] % JEFF ([facility]) eos % 5.8 % 0.0-3.0 Above high normal Eos % JEFF ([facility]) neutrophils % 60.8 % 36.0-66.0 Neutrophils % JEFF ( [facility]) lymph % 23.0 % 24.0-44.0 Below low normal Lymph % [place] ( [facility]) nucleated red blood cell % 0.0 % 0-0 Nucleated Red Blood Cell % JEFF ([facility]) immature granulocyte % 1.8 % 0-3.0 Immature Gran ulocyte % JEFF ([facility]) baso % 1.0 % 0.0-1.0 Baso % JEFF ([facility]) mono # 0.6 10 0.0-0.8 [place] # JEFF ([facility]) eos # 0.4 10 0.0-0.5 Eos # JEFF ([facility]) neutrophils # 4.5 10 1.5-8.5 Neutrophils # JEFF ( [facility]) lymph # 1.7 10 1.5-5.0 Lymph # JEFF ([facility]) baso # 0.1 10 0.0-0.2 Baso # JEFF ([facility]) ID Date Data Source [id number] 08/09/2020 12:40:00 PM EDT JEFF ([facility]) Name Value Range Interpretation Code Description Data Becky rce(s) Supporting Document(s) venous partial pressure CO2 42.6 mmHg 38.0-50.0 Venous P artial Pressure CO2 JEFF ([facility]) venous pH 7.320 units 7.330-7.430 Below low normal Venous pH JEFF ([facility]) venous total CO2 22.8 mEq/L 24.0-28.0 Below low normal Venous Total CO2 JEFF ([facility]) venous base excess -2.0-2.0 Below low normal Venous Base Excess [place] ([facility]) venous partial pressure O2 62.5 mmHg 30.0-50.0 Above high nor mal Venous Partial Pressure O2 JEFF ([facility]) venous HCO3 21.5 mEq/L 23.0-27.0 Below low normal Venous HCO3 [place] ([facility]) venous standard HCO3 20.7 mEq/L Venous Standard HCO3 JEFF ([facility]) venous O2 saturation 91.2 % 60.0-80.0 Above high normal Venous O 2 Saturation [place] ([facility]) ID Date Data Source [id number] 08/09/2020 12:40:00 PM EDT [place] ([facility]) Name Value Range Interpretation Code Description Data Becky rce(s) Supporting Document(s) estimated average glucose 200 mg/dL 60-110 Above high norm al Estimated Average Glucose JEFF ([facility]) Hemoglobin A1c/Hemoglobin.total in Blood 8.6 % Hemoglobin a1C [place] ([facility]) ID Date Data Source [id number] 08/09/2020 12:40:00 PM EDT JEFF ([facility]) Name Value Range Interpretation Code Description Data Becky rce(s) Supporting Document(s) acetone/ketone 1.22 mg/dL <2.81 Acetone/ketone JEFF [facility]) ID Date Data Source [id number] 08/09/2020 12:40:00 PM EDT [place] ([facility]) Name Value Range Interpretation Code Description Data Becky rce(s) Supporting Document(s) glucose, fasting 210 mg/dL 70-100 Above high normal Glucose, Fas ting [place] ([facility]) glomerular filtration rate > 60.0 >60 Glomerula r Filtration Rate JEFF ([facility]) sodium level 135 mEq/L 136-145 Below low normal Sodium Level ATHE NA ([facility]) blood urea nitrogen 16 mg/dL 7-18 Blood Urea Nitro gen JEFF ([facility]) creatinine for GFR 1.03 mg/dL 0.70-1.30 Creatinine for GF R [place] ([facility]) potassium serum 4.0 mEq/L 3.5-5.1 Potassium Serum ATHE NA ([facility]) calcium level 9.7 mg/dL 8.5-10.1 Calcium Level [place] ( [facility]) anion gap 6 mEq/L 8-16 Below low normal Anion Gap [place] ( [facility]) chloride level 101 mEq/L 98-107 Chloride Level [place] ([facility]) carbon dioxide level 28 mEq/L 21-32 Carbon Dioxide Level [place] ([facility]) ID Date Data Source [id number] 08/09/2020 12:40:00 PM EDT [place] ([facility]) Name Value Range Interpretation Code Description Data Becky rce(s) Supporting Document(s) AST/SGOT 24 U/L 7-37 AST/SGOT [place] ([facility]) ALT/SGPT 39 U/L 12-78 ALT/SGPT [place] ([facility]) alkaline phosphatase 101 U/L 45-117 Alkaline Phosph atase [place] ([facility]) albumin 3.9 gm/dL 3.2-5.2 Albumin [place] ([facility]) bilirubin,direct 0.1 mg/dL 0.0-0.2 Bilirubin,direct AT [place] ([facility]) total protein 7.6 gm/dL 6.4-8.2 Total Protein JEFF ( [facility]) bilirubin,total 0.4 mg/dL 0.2-1.0 Bilirubin,total ATHE NA ([facility]) albumin/globulin ratio Albumin/globu bianca Ratio JEFF ([facility]) ID Date Data Source [id number] 08/09/2020 12:40:00 PM EDT JEFF ([facility]) Name Value Range Interpretation Code Description Data Becky rce(s) Supporting Document(s) red blood count 5.23 10 4.30-6.10 Red Blood Count ATHE NA ([facility]) hemoglobin 15.5 g/dL 13.5-17.5 Hemoglobin JEFF ([facility]) white blood count 7.4 10 4.0-10.0 White Blood Count JEFF ([facility]) mean corpuscular HGB conc 33.7 g/dL 32.0-36.5 Mean Corpu scular HGB Conc JEFF ([facility]) hematocrit 46.0 % 42.0-52.0 Hematocrit JEFF ([facility]) mean corpuscular hemoglobin 29.6 pg 27.0-33.0 Mean Cor puscular Hemoglobin JEFF ([facility]) mean corpuscular volume 88.0 fL 80.0-96.0 Mean Corpusc ular Volume JEFF ([facility]) neutrophils % 60.8 % 36.0-66.0 Neutrophils % JEFF ( [facility]) platelet count, automated 186 10 150-450 Platelet C ount, Automated JEFF ([facility]) red cell distribution width 12.5 % 11.5-14.5 Red Cell Distribution Width JEFF ([facility]) mono % 7.6 % 0.0-5.0 Above high normal [place] % JEFF ([facility]) eos % 5.8 % 0.0-3.0 Above high normal Eos % JEFF ([facility]) lymph % 23.0 % 24.0-44.0 Below low normal Lymph % JEFF ( [facility]) baso % 1.0 % 0.0-1.0 Baso % JEFF ([facility]) lymph # 1.7 10 1.5-5.0 Lymph # JEFF ([facility]) neutrophils # 4.5 10 1.5-8.5 Neutrophils # JEFF ( [facility]) nucleated red blood cell % 0.0 % 0-0 Nucleated Red Blood Cell % JEFF ([facility]) immature granulocyte % 1.8 % 0-3.0 Immature Gran ulocyte % JEFF ([facility]) baso # 0.1 10 0.0-0.2 Baso # JEFF ([facility]) eos # 0.4 10 0.0-0.5 Eos # JEFF ([facility]) mono # 0.6 10 0.0-0.8 [place] # JEFF ([facility]) ID Date Data Source [id number] 08/09/2020 12:40:00 PM EDT [place] ([facility]) Name Value Range Interpretation Code Description Data Becky rce(s) Supporting Document(s) venous pH 7.320 units 7.330-7.430 Below low normal Venous pH JEFF ([facility]) venous partial pressure O2 62.5 mmHg 30.0-50.0 Above high nor mal Venous Partial Pressure O2 JEFF ([facility]) venous partial pressure CO2 42.6 mmHg 38.0-50.0 Venous P artial Pressure CO2 JEFF ([facility]) venous base excess -2.0-2.0 Below low normal Venous Base Excess JEFF ([facility]) venous HCO3 21.5 mEq/L 23.0-27.0 Below low normal Venous HCO3 JEFF ([facility]) venous total CO2 22.8 mEq/L 24.0-28.0 Below low normal Venous Total CO2 JEFF ([facility]) venous O2 saturation 91.2 % 60.0-80.0 Above high normal Venous O 2 Saturation JEFF ([facility]) venous standard HCO3 20.7 mEq/L Venous Standard HCO3 JEFF ([facility]) ID Date Data Source [id number] 08/09/2020 12:40:00 PM EDT [place] ([facility]) Name Value Range Interpretation Code Description Data Becky rce(s) Supporting Document(s) Hemoglobin A1c/Hemoglobin.total in Blood 8.6 % Hemoglobin a1C [place] ([facility]) estimated average glucose 200 mg/dL 60-110 Above high norm al Estimated Average Glucose [place] ([facility]) ID Date Data Source [id number] 08/09/2020 12:40:00 PM EDT JEFF ([facility]) Name Value Range Interpretation Code Description Data Becky rce(s) Supporting Document(s) acetone/ketone 1.22 mg/dL <2.81 Acetone/ketone [place] ([facility]) ID Date Data Source [id number] 08/09/2020 12:40:00 PM EDT [place] ([facility]) Name Value Range Interpretation Code Description Data Becky rce(s) Supporting Document(s) creatinine for GFR 1.03 mg/dL 0.70-1.30 Creatinine for GF R JEFF ([facility]) glucose, fasting 210 mg/dL 70-100 Above high normal Glucose, Fas ting JEFF ([facility]) blood urea nitrogen 16 mg/dL 7-18 Blood Urea Nitro gen JEFF ([facility]) sodium level 135 mEq/L 136-145 Below low normal Sodium Level ATHE NA ([facility]) glomerular filtration rate > 60.0 >60 Glomerula r Filtration Rate JEFF ([facility]) chloride level 101 mEq/L 98-107 Chloride Level JEFF ([facility]) potassium serum 4.0 mEq/L 3.5-5.1 Potassium Serum ATHE NA ([facility]) anion gap 6 mEq/L 8-16 Below low normal Anion Gap JEFF ( [facility]) carbon dioxide level 28 mEq/L 21-32 Carbon Dioxide Level JEFF ([facility]) calcium level 9.7 mg/dL 8.5-10.1 Calcium Level JEFF ( [facility]) ID Date Data Source [id number] 08/09/2020 12:40:00 PM EDT JEFF ([facility]) Name Value Range Interpretation Code Description Data Becky rce(s) Supporting Document(s) AST/SGOT 24 U/L 7-37 AST/SGOT JEFF ([facility]) ALT/SGPT 39 U/L 12-78 ALT/SGPT JEFF ([facility]) bilirubin,direct 0.1 mg/dL 0.0-0.2 Bilirubin,direct AT [place] ([facility]) alkaline phosphatase 101 U/L 45-117 Alkaline Phosph atase JEFF ([facility]) total protein 7.6 gm/dL 6.4-8.2 Total Protein JEFF ( [facility]) bilirubin,total 0.4 mg/dL 0.2-1.0 Bilirubin,total ATHE NA ([facility]) albumin/globulin ratio Albumin/globu bianca Ratio JEFF ([facility]) albumin 3.9 gm/dL 3.2-5.2 Albumin JEFF ([facility]) ID Date Data Source [id number] 08/09/2020 12:40:00 PM EDT JEFF ([facility]) Name Value Range Interpretation Code Description Data Becky rce(s) Supporting Document(s) white blood count 7.4 10 4.0-10.0 White Blood Count JEFF ([facility]) hematocrit 46.0 % 42.0-52.0 Hematocrit JEFF ([facility]) red blood count 5.23 10 4.30-6.10 Red Blood Count ATHE NA ([facility]) hemoglobin 15.5 g/dL 13.5-17.5 Hemoglobin JEFF ([facility]) mean corpuscular hemoglobin 29.6 pg 27.0-33.0 Mean Cor puscular Hemoglobin JEFF ([facility]) mean corpuscular volume 88.0 fL 80.0-96.0 Mean Corpusc ular Volume JEFF ([facility]) mean corpuscular HGB conc 33.7 g/dL 32.0-36.5 Mean Corpu scular HGB Conc JEFF ([facility]) red cell distribution width 12.5 % 11.5-14.5 Red Cell Distribution Width JEFF ([facility]) platelet count, automated 186 10 150-450 Platelet C ount, Automated JEFF ([facility]) neutrophils % 60.8 % 36.0-66.0 Neutrophils % JEFF ( [facility]) mono % 7.6 % 0.0-5.0 Above high normal [place] % JEFF ([facility]) baso % 1.0 % 0.0-1.0 Baso % JEFF ([facility]) eos % 5.8 % 0.0-3.0 Above high normal Eos % JEFF ([facility]) lymph % 23.0 % 24.0-44.0 Below low normal Lymph % JEFF ( [facility]) immature granulocyte % 1.8 % 0-3.0 Immature Gran ulocyte % JEFF ([facility]) neutrophils # 4.5 10 1.5-8.5 Neutrophils # JEFF ( [facility]) nucleated red blood cell % 0.0 % 0-0 Nucleated Red Blood Cell % JEFF ([facility]) lymph # 1.7 10 1.5-5.0 Lymph # JEFF ([facility]) mono # 0.6 10 0.0-0.8 [place] # JEFF ([facility]) eos # 0.4 10 0.0-0.5 Eos # JEFF ([facility]) baso # 0.1 10 0.0-0.2 Baso # JEFF ([facility]) ID Date Data Source [id number] 08/09/2020 12:40:00 PM EDT JEFF ([facility]) Name Value Range Interpretation Code Description Data Becky rce(s) Supporting Document(s) venous pH 7.320 units 7.330-7.430 Below low normal Venous pH JEFF ([facility]) venous partial pressure O2 62.5 mmHg 30.0-50.0 Above high nor mal Venous Partial Pressure O2 JEFF ([facility]) venous partial pressure CO2 42.6 mmHg 38.0-50.0 Venous P artial Pressure CO2 JEFF ([facility]) venous total CO2 22.8 mEq/L 24.0-28.0 Below low normal Venous Total CO2 JEFF ([facility]) venous base excess -2.0-2.0 Below low normal Venous Base Excess JEFF ([facility]) venous HCO3 21.5 mEq/L 23.0-27.0 Below low normal Venous HCO3 [place] ([facility]) venous O2 saturation 91.2 % 60.0-80.0 Above high normal Venous O 2 Saturation [place] ([facility]) venous standard HCO3 20.7 mEq/L Venous Standard HCO3 [place] ([facility]) ID Date Data Source [id number] 08/09/2020 12:40:00 PM EDT [place] ([facility]) Name Value Range Interpretation Code Description Data Becky rce(s) Supporting Document(s) Hemoglobin A1c/Hemoglobin.total in Blood 8.6 % Hemoglobin a1C [place] ([facility]) estimated average glucose 200 mg/dL 60-110 Above high norm al Estimated Average Glucose [place] ([facility]) ID Date Data Source [id number] 08/09/2020 12:40:00 PM EDT [place] ([facility]) Name Value Range Interpretation Code Description Data Becky rce(s) Supporting Document(s) acetone/ketone 1.22 mg/dL <2.81 Acetone/ketone [facility] ([facility]) ID Date Data Source [id number] 08/09/2020 12:40:00 PM EDT [place] ([facility]) Name Value Range Interpretation Code Description Data Becky rce(s) Supporting Document(s) glucose, fasting 210 mg/dL 70-100 Above high normal Glucose, Fas ting JEFF ([facility]) blood urea nitrogen 16 mg/dL 7-18 Blood Urea Nitro gen JEFF ([facility]) glomerular filtration rate > 60.0 >60 Glomerula r Filtration Rate JEFF ([facility]) creatinine for GFR 1.03 mg/dL 0.70-1.30 Creatinine for GF R JEFF ([facility]) sodium level 135 mEq/L 136-145 Below low normal Sodium Level ATHE NA ([facility]) potassium serum 4.0 mEq/L 3.5-5.1 Potassium Serum ATHE ([facility]) anion gap 6 mEq/L 8-16 Below low normal Anion Gap JEFF ( [facility]) carbon dioxide level 28 mEq/L 21-32 Carbon Dioxide Level JEFF ([facility]) chloride level 101 mEq/L 98-107 Chloride Level JEFF ([facility]) calcium level 9.7 mg/dL 8.5-10.1 Calcium Level JEFF ( [facility]) ID Date Data Source [id number] 08/09/2020 12:40:00 PM EDT JEFF ([facility]) Name Value Range Interpretation Code Description Data Becky rce(s) Supporting Document(s) AST/SGOT 24 U/L 7-37 AST/SGOT JEFF ([facility]) bilirubin,total 0.4 mg/dL 0.2-1.0 Bilirubin,total ATHE ([facility]) ALT/SGPT 39 U/L 12-78 ALT/SGPT JEFF ([facility]) alkaline phosphatase 101 U/L 45-117 Alkaline Phosph atase JEFF ([facility]) bilirubin,direct 0.1 mg/dL 0.0-0.2 Bilirubin,direct AT DIONICIO ([facility]) total protein 7.6 gm/dL 6.4-8.2 Total Protein JEFF ( [facility]) albumin 3.9 gm/dL 3.2-5.2 Albumin JEFF ([facility]) albumin/globulin ratio Albumin/globu bianca Ratio JEFF ([facility]) ID Date Data Source [id number] 08/09/2020 12:40:00 PM EDT JEFF ([facility]) Name Value Range Interpretation Code Description Data Becky rce(s) Supporting Document(s) white blood count 7.4 10 4.0-10.0 White Blood Count JEFF ([facility]) red blood count 5.23 10 4.30-6.10 Red Blood Count ATHE ([facility]) mean corpuscular volume 88.0 fL 80.0-96.0 Mean Corpusc ular Volume JEFF ([facility]) hematocrit 46.0 % 42.0-52.0 Hematocrit JEFF ([facility]) hemoglobin 15.5 g/dL 13.5-17.5 Hemoglobin JEFF ([facility]) mean corpuscular hemoglobin 29.6 pg 27.0-33.0 Mean Cor puscular Hemoglobin JEFF ([facility]) mean corpuscular HGB conc 33.7 g/dL 32.0-36.5 Mean Corpu scular HGB Conc JEFF ([facility]) red cell distribution width 12.5 % 11.5-14.5 Red Cell Distribution Width JEFF ([facility]) lymph % 23.0 % 24.0-44.0 Below low normal Lymph % SULLIVAN ( [facility]) neutrophils % 60.8 % 36.0-66.0 Neutrophils % SULLIVAN ( [facility]) platelet count, automated 186 10 150-450 Platelet C ount, Automated JEFF ([facility]) immature granulocyte % 1.8 % 0-3.0 Immature Gran ulocyte % JEFF ([facility]) eos % 5.8 % 0.0-3.0 Above high normal Eos % JEFF ([facility]) baso % 1.0 % 0.0-1.0 Baso % JEFF ([facility]) mono % 7.6 % 0.0-5.0 Above high normal [place] % JEFF ([facility]) lymph # 1.7 10 1.5-5.0 Lymph # JEFF ([facility]) neutrophils # 4.5 10 1.5-8.5 Neutrophils # JEFF ( [facility]) nucleated red blood cell % 0.0 % 0-0 Nucleated Red Blood Cell % JEFF ([facility]) baso # 0.1 10 0.0-0.2 Baso # JEFF ([facility]) eos # 0.4 10 0.0-0.5 Eos # JEFF ([facility]) mono # 0.6 10 0.0-0.8 [place] # JEFF ([facility]) ID Date Data Source [id number] 08/09/2020 12:40:00 PM EDT JEFF ([facility]) Name Value Range Interpretation Code Description Data Becky rce(s) Supporting Document(s) venous pH 7.320 units 7.330-7.430 Below low normal Venous pH SULL[place]AN ([facility]) venous partial pressure CO2 42.6 mmHg 38.0-50.0 Venous P artial Pressure CO2 JEFF ([facility]) venous partial pressure O2 62.5 mmHg 30.0-50.0 Above high nor mal Venous Partial Pressure O2 [place] ([facility]) venous base excess -2.0-2.0 Below low normal Venous Base Excess JEFF ([facility]) venous HCO3 21.5 mEq/L 23.0-27.0 Below low normal Venous HCO3 JEFF ([facility]) venous total CO2 22.8 mEq/L 24.0-28.0 Below low normal Venous Total CO2 JEFF ([facility]) venous O2 saturation 91.2 % 60.0-80.0 Above high normal Venous O 2 Saturation JEFF ([facility]) venous standard HCO3 20.7 mEq/L Venous Standard HCO3 JEFF ([facility]) ID Date Data Source [id number] 08/09/2020 12:40:00 PM EDT JEFF ([facility]) Name Value Range Interpretation Code Description Data Becky rce(s) Supporting Document(s) estimated average glucose 200 mg/dL 60-110 Above high norm al Estimated Average Glucose JEFF ([facility]) Hemoglobin A1c/Hemoglobin.total in Blood 8.6 % Hemoglobin a1C JEFF ([facility]) ID Date Data Source [id number] 08/09/2020 12:40:00 PM EDT JEFF ([facility]) Name Value Range Interpretation Code Description Data Becky rce(s) Supporting Document(s) acetone/ketone 1.22 mg/dL <2.81 Acetone/ketone [place] ([facility]) ID Date Data Source [id number] 08/09/2020 12:40:00 PM EDT [place] ([facility]) Name Value Range Interpretation Code Description Data Becky rce(s) Supporting Document(s) creatinine for GFR 1.03 mg/dL 0.70-1.30 Creatinine for GF R SULL[place]AN ([facility]) glucose, fasting 210 mg/dL 70-100 Above high normal Glucose, Fas ting JEFF ([facility]) glomerular filtration rate > 60.0 >60 Glomerula r Filtration Rate JEFF ([facility]) blood urea nitrogen 16 mg/dL 7-18 Blood Urea Nitro gen JEFF ([facility]) chloride level 101 mEq/L 98-107 Chloride Level S[place]AN ([facility]) potassium serum 4.0 mEq/L 3.5-5.1 Potassium Serum ATHE NA ([facility]) sodium level 135 mEq/L 136-145 Below low normal Sodium Level ATHE NA ([facility]) anion gap 6 mEq/L 8-16 Below low normal Anion Gap SULL[place]AN ( [facility]) calcium level 9.7 mg/dL 8.5-10.1 Calcium Level JEFF ( [facility]) carbon dioxide level 28 mEq/L 21-32 Carbon Dioxide Level JEFF ([facility]) ID Date Data Source [id number] 08/09/2020 12:40:00 PM EDT [place] ([facility]) Name Value Range Interpretation Code Description Data Becky rce(s) Supporting Document(s) AST/SGOT 24 U/L 7-37 AST/SGOT JEFF ([facility]) bilirubin,total 0.4 mg/dL 0.2-1.0 Bilirubin,total ATHE NA ([facility]) alkaline phosphatase 101 U/L 45-117 Alkaline Phosph atase JEFF ([facility]) ALT/SGPT 39 U/L 12-78 ALT/SGPT JEFF ([facility]) albumin 3.9 gm/dL 3.2-5.2 Albumin JEFF ([facility]) bilirubin,direct 0.1 mg/dL 0.0-0.2 Bilirubin,direct AT DIONICIO ([facility]) albumin/globulin ratio Albumin/globu bianca Ratio JEFF ([facility]) total protein 7.6 gm/dL 6.4-8.2 Total Protein JEFF ( [facility]) ID Date Data Source [id number] 08/09/2020 12:40:00 PM EDT JEFF ([facility]) Name Value Range Interpretation Code Description Data Becky rce(s) Supporting Document(s) white blood count 7.4 10 4.0-10.0 White Blood Count JEFF ([facility]) red blood count 5.23 10 4.30-6.10 Red Blood Count ATHE ([facility]) mean corpuscular volume 88.0 fL 80.0-96.0 Mean Corpusc ular Volume JEFF ([facility]) hemoglobin 15.5 g/dL 13.5-17.5 Hemoglobin JEFF ([facility]) hematocrit 46.0 % 42.0-52.0 Hematocrit JEFF ([facility]) mean corpuscular HGB conc 33.7 g/dL 32.0-36.5 Mean Corpu scular HGB Conc JEFF ([facility]) red cell distribution width 12.5 % 11.5-14.5 Red Cell Distribution Width JEFF ([facility]) mean corpuscular hemoglobin 29.6 pg 27.0-33.0 Mean Cor puscular Hemoglobin JEFF ([facility]) platelet count, automated 186 10 150-450 Platelet C ount, Automated JEFF ([facility]) lymph % 23.0 % 24.0-44.0 Below low normal Lymph % JEFF ( [facility]) neutrophils % 60.8 % 36.0-66.0 Neutrophils % JEFF ( [facility]) immature granulocyte % 1.8 % 0-3.0 Immature Gran ulocyte % JEFF ([facility]) eos % 5.8 % 0.0-3.0 Above high normal Eos % JEFF ([facility]) mono % 7.6 % 0.0-5.0 Above high normal [place] % JEFF ([facility]) baso % 1.0 % 0.0-1.0 Baso % JEFF ([facility]) lymph # 1.7 10 1.5-5.0 Lymph # JEFF ([facility]) nucleated red blood cell % 0.0 % 0-0 Nucleated Red Blood Cell % JEFF ([facility]) neutrophils # 4.5 10 1.5-8.5 Neutrophils # JEFF ( [facility]) eos # 0.4 10 0.0-0.5 Eos # JEFF ([facility]) mono # 0.6 10 0.0-0.8 [place] # JEFF ([facility]) baso # 0.1 10 0.0-0.2 Baso # JEFF ([facility]) ID Date Data Source [id number] 08/09/2020 12:40:00 PM EDT [place] ([facility]) Name Value Range Interpretation Code Description Data Becky rce(s) Supporting Document(s) venous pH 7.320 units 7.330-7.430 Below low normal Venous pH [place] ([facility]) venous partial pressure CO2 42.6 mmHg 38.0-50.0 Venous P artial Pressure CO2 [place] ([facility]) venous partial pressure O2 62.5 mmHg 30.0-50.0 Above high nor mal Venous Partial Pressure O2 [place] ([facility]) venous total CO2 22.8 mEq/L 24.0-28.0 Below low normal Venous Total CO2 JEFF ([facility]) venous base excess -2.0-2.0 Below low normal Venous Base Excess [place] ([facility]) venous HCO3 21.5 mEq/L 23.0-27.0 Below low normal Venous HCO3 [place] ([facility]) venous O2 saturation 91.2 % 60.0-80.0 Above high normal Venous O 2 Saturation [place] ([facility]) venous standard HCO3 20.7 mEq/L Venous Standard HCO3 [place] ([facility]) ID Date Data Source [id number] 08/09/2020 12:40:00 PM EDT [facility]) Name Value Range Interpretation Code Description Data Becky rce(s) Supporting Document(s) Hemoglobin A1c/Hemoglobin.total in Blood 8.6 % Hemoglobin a1C [place] ([facility]) estimated average glucose 200 mg/dL 60-110 Above high norm al Estimated Average Glucose [place] ([facility]) ID Date Data Source [id number] 08/09/2020 12:40:00 PM EDT [place] ([facility]) Name Value Range Interpretation Code Description Data Becky rce(s) Supporting Document(s) acetone/ketone 1.22 mg/dL <2.81 Acetone/ketone [place] ([facility]) ID Date Data Source [id number] 08/09/2020 12:40:00 PM EDT [place] ([facility]) Name Value Range Interpretation Code Description Data Becky rce(s) Supporting Document(s) glucose, fasting 210 mg/dL 70-100 Above high normal Glucose, Fas ting [place]AN ([facility]) glomerular filtration rate > 60.0 >60 Glomerula r Filtration Rate [place]AN ([facility]) blood urea nitrogen 16 mg/dL 7-18 Blood Urea Nitro gen [place]AN ([facility]) creatinine for GFR 1.03 mg/dL 0.70-1.30 Creatinine for GF R [place]AN ([facility]) potassium serum 4.0 mEq/L 3.5-5.1 Potassium Serum ATHE NA ([facility]) carbon dioxide level 28 mEq/L 21-32 Carbon Dioxide Level JEFF ([facility]) chloride level 101 mEq/L 98-107 Chloride Level JEFF ([facility]) sodium level 135 mEq/L 136-145 Below low normal Sodium Level ATHE NA ([facility]) calcium level 9.7 mg/dL 8.5-10.1 Calcium Level JEFF ( [facility]) anion gap 6 mEq/L 8-16 Below low normal Anion Gap JEFF ( [facility]) ID Date Data Source [id number] 08/09/2020 12:40:00 PM EDT JEFF ([facility]) Name Value Range Interpretation Code Description Data Becky rce(s) Supporting Document(s) AST/SGOT 24 U/L 7-37 AST/SGOT JEFF ([facility]) alkaline phosphatase 101 U/L 45-117 Alkaline Phosph atase JEFF ([facility]) ALT/SGPT 39 U/L 12-78 ALT/SGPT JEFF ([facility]) bilirubin,direct 0.1 mg/dL 0.0-0.2 Bilirubin,direct AT DIONICIO ([facility]) bilirubin,total 0.4 mg/dL 0.2-1.0 Bilirubin,total ATHE ([facility]) total protein 7.6 gm/dL 6.4-8.2 Total Protein JEFF ( [facility]) albumin/globulin ratio Albumin/globu bianca Ratio JEFF ([facility]) albumin 3.9 gm/dL 3.2-5.2 Albumin JEFF ([facility]) ID Date Data Source [id number] 08/09/2020 12:40:00 PM EDT JEFF ([facility]) Name Value Range Interpretation Code Description Data Becky rce(s) Supporting Document(s) red blood count 5.23 10 4.30-6.10 Red Blood Count ATHE ([facility]) white blood count 7.4 10 4.0-10.0 White Blood Count JEFF ([facility]) mean corpuscular volume 88.0 fL 80.0-96.0 Mean Corpusc ular Volume JEFF ([facility]) hemoglobin 15.5 g/dL 13.5-17.5 Hemoglobin JEFF ([facility]) hematocrit 46.0 % 42.0-52.0 Hematocrit JEFF ([facility]) red cell distribution width 12.5 % 11.5-14.5 Red Cell Distribution Width JEFF ([facility]) mean corpuscular HGB conc 33.7 g/dL 32.0-36.5 Mean Corpu scular HGB Conc JEFF ([facility]) mean corpuscular hemoglobin 29.6 pg 27.0-33.0 Mean Cor puscular Hemoglobin JEFF ([facility]) platelet count, automated 186 10 150-450 Platelet C ount, Automated JEFF ([facility]) lymph % 23.0 % 24.0-44.0 Below low normal Lymph % JEFF ( [facility]) neutrophils % 60.8 % 36.0-66.0 Neutrophils % JEFF ( [facility]) mono % 7.6 % 0.0-5.0 Above high normal [place] % [place] ([facility]) immature granulocyte % 1.8 % 0-3.0 Immature Gran ulocyte % JEFF ([facility]) eos % 5.8 % 0.0-3.0 Above high normal Eos % JEFF ([facility]) baso % 1.0 % 0.0-1.0 Baso % JEFF ([facility]) lymph # 1.7 10 1.5-5.0 Lymph # JEFF ([facility]) neutrophils # 4.5 10 1.5-8.5 Neutrophils # JEFF ( [facility]) nucleated red blood cell % 0.0 % 0-0 Nucleated Red Blood Cell % JEFF ([facility]) mono # 0.6 10 0.0-0.8 [place] # JEFF ([facility]) baso # 0.1 10 0.0-0.2 Baso # JEFF ([facility]) eos # 0.4 10 0.0-0.5 Eos # JEFF ([facility]) ID Date Data Source [id number] 08/09/2020 12:40:00 PM EDT JEFF ([facility]) Name Value Range Interpretation Code Description Data Becky rce(s) Supporting Document(s) venous partial pressure CO2 42.6 mmHg 38.0-50.0 Venous P artial Pressure CO2 JEFF ([facility]) venous pH 7.320 units 7.330-7.430 Below low normal Venous pH S[place] ([facility]) venous partial pressure O2 62.5 mmHg 30.0-50.0 Above high nor mal Venous Partial Pressure O2 JEFF ([facility]) venous total CO2 22.8 mEq/L 24.0-28.0 Below low normal Venous Total CO2 [place] ([facility]) venous base excess -2.0-2.0 Below low normal Venous Base Excess JEFF ([facility]) venous standard HCO3 20.7 mEq/L Venous Standard HCO3 JEFF ([facility]) venous HCO3 21.5 mEq/L 23.0-27.0 Below low normal Venous HCO3 [place] ([facility]) venous O2 saturation 91.2 % 60.0-80.0 Above high normal Venous O 2 Saturation [place] ([facility]) ID Date Data Source [id number] 08/09/2020 12:40:00 PM EDT JEFF ([facility]) Name Value Range Interpretation Code Description Data Becky rce(s) Supporting Document(s) Hemoglobin A1c/Hemoglobin.total in Blood 8.6 % Hemoglobin a1C JEFF ([facility]) estimated average glucose 200 mg/dL 60-110 Above high norm al Estimated Average Glucose [place] ([facility]) ID Date Data Source [id number] 08/09/2020 12:40:00 PM EDT JEFF ([facility]) Name Value Range Interpretation Code Description Data Becky rce(s) Supporting Document(s) Hemoglobin A1c/Hemoglobin.total in Blood 8.6 % Hemoglobin a1C JEFF ([facility]) estimated average glucose 200 mg/dL 60-110 Above high norm al Estimated Average Glucose [place] ([facility]) ID Date Data Source [id number] 08/09/2020 12:40:00 PM EDT JEFF ([facility]) Name Value Range Interpretation Code Description Data Becky rce(s) Supporting Document(s) acetone/ketone 1.22 mg/dL <2.81 Acetone/ketone [place] ([facility]) ID Date Data Source [id number] 08/09/2020 12:40:00 PM EDT [place] ([facility]) Name Value Range Interpretation Code Description Data Becky rce(s) Supporting Document(s) glucose, fasting 210 mg/dL 70-100 Above high normal Glucose, Fas ting JEFF ([facility]) sodium level 135 mEq/L 136-145 Below low normal Sodium Level ATHE NA ([facility]) blood urea nitrogen 16 mg/dL 7-18 Blood Urea Nitro gen JEFF ([facility]) creatinine for GFR 1.03 mg/dL 0.70-1.30 Creatinine for GF R JEFF ([facility]) glomerular filtration rate > 60.0 >60 Glomerula r Filtration Rate JEFF ([facility]) carbon dioxide level 28 mEq/L 21-32 Carbon Dioxide Level JEFF ([facility]) chloride level 101 mEq/L 98-107 Chloride Level JEFF ([facility]) potassium serum 4.0 mEq/L 3.5-5.1 Potassium Serum ATHE NA ([facility]) anion gap 6 mEq/L 8-16 Below low normal Anion Gap JEFF ( [facility]) calcium level 9.7 mg/dL 8.5-10.1 Calcium Level S[place]AN ( [facility]) ID Date Data Source [id number] 08/09/2020 12:40:00 PM EDT JEFF ([facility]) Name Value Range Interpretation Code Description Data Becky rce(s) Supporting Document(s) alkaline phosphatase 101 U/L 45-117 Alkaline Phosph atase JEFF ([facility]) ALT/SGPT 39 U/L 12-78 ALT/SGPT JEFF ([facility]) AST/SGOT 24 U/L 7-37 AST/SGOT JEFF ([facility]) bilirubin,total 0.4 mg/dL 0.2-1.0 Bilirubin,total ATHE NA ([facility]) bilirubin,direct 0.1 mg/dL 0.0-0.2 Bilirubin,direct AT DIONICIO ([facility]) total protein 7.6 gm/dL 6.4-8.2 Total Protein JEFF ( [facility]) albumin 3.9 gm/dL 3.2-5.2 Albumin JEFF ([facility]) albumin/globulin ratio Albumin/globu bianca Ratio JEFF ([facility]) ID Date Data Source [id number] 08/09/2020 12:40:00 PM EDT JEFF ([facility]) Name Value Range Interpretation Code Description Data Becky rce(s) Supporting Document(s) white blood count 7.4 10 4.0-10.0 White Blood Count JEFF ([facility]) red blood count 5.23 10 4.30-6.10 Red Blood Count ATHE NA ([facility]) hematocrit 46.0 % 42.0-52.0 Hematocrit JEFF ([facility]) hemoglobin 15.5 g/dL 13.5-17.5 Hemoglobin JEFF ([facility]) mean corpuscular volume 88.0 fL 80.0-96.0 Mean Corpusc ular Volume JEFF ([facility]) mean corpuscular hemoglobin 29.6 pg 27.0-33.0 Mean Cor puscular Hemoglobin JEFF ([facility]) mean corpuscular HGB conc 33.7 g/dL 32.0-36.5 Mean Corpu scular HGB Conc JEFF ([facility]) platelet count, automated 186 10 150-450 Platelet C ount, Automated JEFF ([facility]) red cell distribution width 12.5 % 11.5-14.5 Red Cell Distribution Width JEFF ([facility]) lymph % 23.0 % 24.0-44.0 Below low normal Lymph % JEFF ( [facility]) neutrophils % 60.8 % 36.0-66.0 Neutrophils % JEFF ( [facility]) mono % 7.6 % 0.0-5.0 Above high normal [place] % JEFF ([facility]) baso % 1.0 % 0.0-1.0 Baso % S[place]AN ([facility]) eos % 5.8 % 0.0-3.0 Above high normal Eos % S[place]AN ([facility]) immature granulocyte % 1.8 % 0-3.0 Immature Gran ulocyte % SULLIVAN ([facility]) nucleated red blood cell % 0.0 % 0-0 Nucleated Red Blood Cell % S[place]AN ([facility]) neutrophils # 4.5 10 1.5-8.5 Neutrophils # JEFF ( [facility]) lymph # 1.7 10 1.5-5.0 Lymph # JEFF ([facility]) mono # 0.6 10 0.0-0.8 [place] # JEFF ([facility]) eos # 0.4 10 0.0-0.5 Eos # JEFF ([facility]) baso # 0.1 10 0.0-0.2 Baso # JEFF ([facility]) ID Date Data Source [id number] 08/09/2020 12:40:00 PM EDT [place] ([facility]) Name Value Range Interpretation Code Description Data Becky rce(s) Supporting Document(s) venous pH 7.320 units 7.330-7.430 Below low normal Venous pH JEFF ([facility]) venous partial pressure CO2 42.6 mmHg 38.0-50.0 Venous P artial Pressure CO2 [place] ([facility]) venous partial pressure O2 62.5 mmHg 30.0-50.0 Above high nor mal Venous Partial Pressure O2 JEFF ([facility]) venous base excess -2.0-2.0 Below low normal Venous Base Excess [place] ([facility]) venous HCO3 21.5 mEq/L 23.0-27.0 Below low normal Venous HCO3 [place] ([facility]) venous total CO2 22.8 mEq/L 24.0-28.0 Below low normal Venous Total CO2 [place] ([facility]) venous O2 saturation 91.2 % 60.0-80.0 Above high normal Venous O 2 Saturation S[place]AN ([facility]) venous standard HCO3 20.7 mEq/L Venous Standard HCO3 [place] ([facility]) ID Date Data Source [id number] 08/09/2020 11:49:00 AM EDT [facility]) Name Value Range Interpretation Code Description Data Becky rce(s) Supporting Document(s) bedside glucose 233 mg/dL 70-105 Above high normal Bedside Gluco se [facility]) ID Date Data Source [id number] 08/09/2020 11:49:00 AM EDT [facility]) Name Value Range Interpretation Code Description Data Becky rce(s) Supporting Document(s) bedside glucose 233 mg/dL 70-105 Above high normal Bedside Gluco se [facility]) ID Date Data Source [id number] 08/09/2020 11:49:00 AM EDT [facility]) Name Value Range Interpretation Code Description Data Becky rce(s) Supporting Document(s) bedside glucose 233 mg/dL 70-105 Above high normal Bedside Gluco se [facility]) ID Date Data Source [id number] 08/09/2020 11:49:00 AM EDT [facility]) Name Value Range Interpretation Code Description Data Becky rce(s) Supporting Document(s) bedside glucose 233 mg/dL 70-105 Above high normal Bedside Gluco se [place] ([facility]) ID Date Data Source [id number] 08/09/2020 11:49:00 AM EDT [facility]) Name Value Range Interpretation Code Description Data Becky rce(s) Supporting Document(s) bedside glucose 233 mg/dL 70-105 Above high normal Bedside Gluco se JEFF ([facility]) ID Date Data Source [id number] 08/09/2020 11:49:00 AM EDT [facility]) Name Value Range Interpretation Code Description Data Becky rce(s) Supporting Document(s) bedside glucose 233 mg/dL 70-105 Above high normal Bedside Gluco se [place] ([facility]) ID Date Data Source [id number] 08/09/2020 11:49:00 AM EDT [facility]) Name Value Range Interpretation Code Description Data Becky rce(s) Supporting Document(s) bedside glucose 233 mg/dL 70-105 Above high [facility] Data Source [id number] 08/09/2020 11:49:00 AM EDT [facility]) Name Value Range Interpretation Code Description Data Becky rce(s) Supporting Document(s) bedside glucose 233 mg/dL 70-105 Above high normal Bedside Gluco se [facility]) ID Date Data Source [id number] 08/09/2020 11:49:00 AM EDT [facility]) Name Value Range Interpretation Code Description Data Becky rce(s) Supporting Document(s) bedside glucose 233 mg/dL 70-105 Above high normal Bedside Gluco se [facility]) ID Date Data Source [id number] 08/09/2020 11:49:00 AM EDT [facility]) Name Value Range Interpretation Code Description Data Becky rce(s) Supporting Document(s) bedside glucose 233 mg/dL 70-105 Above high normal Bedside Gluco se [place] ([facility]) ID Date Data Source [id number] 08/09/2020 11:49:00 AM EDT [facility]) Name Value Range Interpretation Code Description Data Becky rce(s) Supporting Document(s) bedside glucose 233 mg/dL 70-105 Above high normal Bedside Gluco se [facility]) ID Date Data Source [id number] 08/09/2020 11:49:00 AM EDT [facility]) Name Value Range Interpretation Code Description Data Becky rce(s) Supporting Document(s) bedside glucose 233 mg/dL 70-105 Above high normal Bedside Gluco se [facility]) ID Date Data Source [id number] 08/09/2020 11:49:00 AM EDT [facility]) Name Value Range Interpretation Code Description Data Becky rce(s) Supporting Document(s) bedside glucose 233 mg/dL 70-105 Above high normal Bedside Gluco se [facility]) ID Date Data Source [id number] 08/09/2020 11:49:00 AM EDT [facility]) Name Value Range Interpretation Code Description Data Becky rce(s) Supporting Document(s) bedside glucose 233 mg/dL 70-105 Above high normal Bedside Gluco se [facility]) ID Date Data Source [id number] 08/09/2020 11:49:00 AM EDT [facility]) Name Value Range Interpretation Code Description Data Becky rce(s) Supporting Document(s) bedside glucose 233 mg/dL 70-105 Above high normal Bedside Gluco se [facility]) ID Date Data Source [id number] 08/09/2020 11:49:00 AM EDT [facility]) Name Value Range Interpretation Code Description Data Becky rce(s) Supporting Document(s) bedside glucose 233 mg/dL 70-105 Above high normal Bedside Gluco se [facility]) ID Date Data Source [id number] 08/09/2020 11:49:00 AM EDT [facility]) Name Value Range Interpretation Code Description Data Becky rce(s) Supporting Document(s) bedside glucose 233 mg/dL 70-105 Above high normal Bedside Gluco se [facility]) ID Date Data Source [id number] 08/09/2020 12:00:00 AM EDT [facility]) Name Value Range Interpretation Code Description Data Becky rce(s) Supporting Document(s) ID Date Data Source [id number] 07/28/2020 01:20:20 PM EDT [facility] Measurements & CalculationsHeight: 68 inches (5 [...] during this visit, including review of any [id number] medications, herbal therapies, and/or supplements.Allergy ReviewAllergy List [...] Plan Problems:Assessed:Type 2 diabetes mellitus without complications (TPI24-F48.9) Assessment: Instructions: Suboptimal control.Increase Basaglar from 20 [...] MG ORAL TABLET EXTENDED RELEASEVITAMIN D (ERGOCALCIFEROL) 57815 UNIT ORAL CAPSULEMedication Changes:Added: METFORMIN HCL ER [...] (Moderate)Orders:Adult - Ofc Vst, EST, Level III [CPT-21858] COMP METABOLIC PANEL [CPT-37570] HgBA1c [CPT-88056] LIPID PANEL [CPT-41285] TSH [CPT-80301] T-4 free [CPT-36580] Name Value Range Interpretation Code Description Data Becky rce(s) Supporting Document(s) Procedure Social History Code Duration Value Status Description Data Source(s ) Smoking 07/02/2021 12:00:00 AM EDT Unknown if ever smoked comp leted Unknown if ever smoked [facility] ([facility]) Smoking 06/14/2021 12:00:00 AM EDT Unknown if ever smoked comp leted Unknown if ever smoked [facility] ([facility]) Smoking 05/31/2021 12:00:00 AM EDT Unknown if ever smoked comp leted Unknown if ever smoked [facility] ([facility]) Smoking 05/30/2021 12:00:00 AM EDT Unknown if ever smoked comp leted Unknown if ever smoked [facility] ([facility]) Smoking 05/01/2021 12:00:00 AM EDT Unknown if ever smoked comp leted Unknown if ever smoked [facility] ([facility]) Smoking 03/26/2021 12:00:00 AM EDT Unknown if ever smoked comp leted Unknown if ever smoked [facility] ([facility]) Smoking 02/26/2021 12:00:00 AM EDT Unknown if ever smoked comp leted Unknown if ever smoked [facility] ([facility]) Smoking 02/07/2021 12:00:00 AM EDT Unknown if ever smoked comp leted Unknown if ever smoked [facility] ([facility]) Smoking 01/18/2021 12:00:00 AM EDT Unknown if ever smoked comp leted Unknown if ever smoked [facility] ([facility]) Smoking 12/28/2020 12:00:00 AM EDT Unknown if ever smoked comp leted Unknown if ever smoked [facility] ([facility]) Smoking 12/11/2020 12:00:00 AM EST Unknown if ever smoked comp leted Unknown if ever smoked [facility] ([facility]) Smoking 12/07/2020 12:00:00 AM EST Unknown if ever smoked comp leted Unknown if ever smoked [facility] ([facility]) Smoking 11/07/2020 12:00:00 AM EST Unknown if ever smoked comp leted Unknown if ever smoked [facility] ([facility]) Smoking 10/25/2020 12:00:00 AM EST Unknown if ever smoked comp leted Unknown if ever smoked [facility] ([facility]) Smoking 10/20/2020 12:00:00 AM EST Unknown if ever smoked comp leted Unknown if ever smoked [facility] ([facility]) Smoking 09/28/2020 12:00:00 AM EST Unknown if ever smoked comp leted Unknown if ever smoked [facility] ([facility]) Smoking 09/21/2020 12:00:00 AM EST Unknown if ever smoked comp leted Unknown if ever smoked [facility] ([facility]) Smoking 09/11/2020 12:00:00 AM EST Unknown if ever smoked comp leted Unknown if ever smoked [facility] ([facility]) Smoking 08/24/2020 12:00:00 AM EST Unknown if ever smoked comp leted Unknown if ever smoked [facility] ([facility]) Smoking 08/17/2020 12:00:00 AM EST Unknown if ever smoked comp leted Unknown if ever smoked [facility] ([facility]) Smoking 07/25/2020 12:00:00 AM EDT Unknown if ever smoked comp leted Unknown if ever smoked [facility] ([facility]) Smoking 07/20/2020 12:00:00 AM EDT Unknown if ever smoked comp leted Unknown if ever smoked [facility] ([facility]) Smoking 07/06/2020 12:00:00 AM EDT Unknown if ever smoked comp leted Unknown if ever smoked [facility] ([facility]) Vital Signs ID Date Data Source UNK Name Value Range Interpretation Code Description Data Source(s) Diastolic blood pressure 78 mm[Hg] 78 mm[Hg] JEFF ([facility]) Body height 68 [in_i] 68 [in_i] JEFF ([facility]) Body mass index (BMI) [Ratio] 37.9 kg/m2 37.9 k g/m2 JEFF ([facility]) Systolic blood pressure 109 mm[Hg] 109 mm[Hg] A THENA ([facility]) Body weight 3992 [oz_av] 3992 [oz_av] JEFF ([facility]) Diastolic blood pressure 90 mm[Hg] 90 mm[Hg] JEFF ([facility]) Body height 68 [in_i] 68 [in_i] JEFF ([facility]) Body mass index (BMI) [Ratio] 38.9 kg/m2 38.9 k g/m2 JEFF ([facility]) Systolic blood pressure 135 mm[Hg] 135 mm[Hg] [facility] Body weight 4096 [oz_av] 4096 [oz_av] JEFF ([facility]) Diastolic blood pressure 90 mm[Hg] 90 mm[Hg] JEFF ([facility]) Body height 68 [in_i] 68 [in_i] JEFF ([facility]) Body mass index (BMI) [Ratio] 38.9 kg/m2 38.9 k g/m2 JEFF ([facility]) Systolic blood pressure 135 mm[Hg] 135 mm[Hg] [facility] Body weight 4096 [oz_av] 4096 [oz_av] JEFF ([facility]) Diastolic blood pressure 94 mm[Hg] 94 mm[Hg] JEFF ([facility]) Body height 68 [in_i] 68 [in_i] JEFF ([facility]) Body mass index (BMI) [Ratio] 39.4 kg/m2 39.4 k g/m2 JEFF ([facility]) Body weight 4150 [oz_av] 4150 [oz_av] JEFF ([facility]) Systolic blood pressure 135 mm[Hg] 135 mm[Hg] [facility] Diastolic blood pressure 94 mm[Hg] 94 mm[Hg] JEFF ([facility]) Body height 68 [in_i] 68 [in_i] JEFF ([facility]) Body mass index (BMI) [Ratio] 39.4 kg/m2 39.4 k g/m2 JEFF ([facility]) Systolic blood pressure 135 mm[Hg] 135 mm[Hg] A THENA ([facility]) Body weight 4150 [oz_av] 4150 [oz_av] JEFF ([facility]) Diastolic blood pressure 94 mm[Hg] 94 mm[Hg] JEFF ([facility]) Body height 68 [in_i] 68 [in_i] JEFF ([facility]) Body mass index (BMI) [Ratio] 39.4 kg/m2 39.4 k g/m2 JEFF ([facility]) Systolic blood pressure 135 mm[Hg] 135 mm[Hg] [facility] Body weight 4150 [oz_av] 4150 [oz_av] JEFF ([facility]) Diastolic blood pressure 88 mm[Hg] 88 mm[Hg] JEFF ([facility]) Body height 68 [in_i] 68 [in_i] JEFF ([facility]) Body mass index (BMI) [Ratio] 39.4 kg/m2 39.4 k g/m2 JEFF ([facility]) Systolic blood pressure 129 mm[Hg] 129 mm[Hg] [facility] Body weight 4150 [oz_av] 4150 [oz_av] JEFF ([facility]) Systolic blood pressure 129 mm[Hg] 129 mm[Hg] A THENA ([facility]) Body mass index (BMI) [Ratio] 39.4 kg/m2 39.4 k g/m2 JEFF ([facility]) Body weight 4150 [oz_av] 4150 [oz_av] JEFF ([facility]) Diastolic blood pressure 88 mm[Hg] 88 mm[Hg] JEFF ([facility]) Body height 68 [in_i] 68 [in_i] JEFF ([facility]) Diastolic blood pressure 88 mm[Hg] 88 mm[Hg] JEFF ([facility]) Body height 68 [in_i] 68 [in_i] JEFF ([facility]) Body mass index (BMI) [Ratio] 39.4 kg/m2 39.4 k g/m2 JEFF ([facility]) Systolic blood pressure 129 mm[Hg] 129 mm[Hg] A THENA ([facility]) Body weight 4150 [oz_av] 4150 [oz_av] JEFF ([facility]) Diastolic blood pressure 88 mm[Hg] 88 mm[Hg] JEFF ([facility]) Body height 68 [in_i] 68 [in_i] JEFF ([facility]) Body mass index (BMI) [Ratio] 39.4 kg/m2 39.4 k g/m2 JEFF ([facility]) Systolic blood pressure 129 mm[Hg] 129 mm[Hg] A HARISA ([facility]) Body weight 4150 [oz_av] 4150 [oz_av] JEFF ([facility]) Diastolic blood pressure 88 mm[Hg] 88 mm[Hg] JEFF ([facility]) Body height 68 [in_i] 68 [in_i] JEFF ([facility]) Body mass index (BMI) [Ratio] 39.4 kg/m2 39.4 k g/m2 JEFF ([facility]) Systolic blood pressure 129 mm[Hg] 129 mm[Hg] A HARISA ([facility]) Body weight 4150 [oz_av] 4150 [oz_av] JEFF ([facility]) Diastolic blood pressure 88 mm[Hg] 88 mm[Hg] JEFF ([facility]) Body height 68 [in_i] 68 [in_i] JEFF ([facility]) Body mass index (BMI) [Ratio] 39.4 kg/m2 39.4 k g/m2 JEFF ([facility]) Systolic blood pressure 129 mm[Hg] 129 mm[Hg] A HARISA ([facility]) Body weight 4150 [oz_av] 4150 [oz_av] JEFF ([facility]) Body weight 172.00 [lb_av] 172.00 [lb_av] MEDEN T ([facility] Systolic blood pressure 123 mm[Hg] 123 mm[Hg] M EDENT ([facility] Diastolic blood pressure 82 mm[Hg] 82 mm[Hg] MEDENT ([facility] Heart rate 85 /min 85 /min MEDENT ([facility] Diastolic blood pressure 82 mm[Hg] 82 mm[Hg] JEFF ([facility]) Body height 68 [in_i] 68 [in_i] JFEF ([facility]) Body mass index (BMI) [Ratio] 39.4 kg/m2 39.4 k g/m2 JEFF ([facility]) Systolic blood pressure 123 mm[Hg] 123 mm[Hg] [facility] Body weight 4150 [oz_av] 4150 [oz_av] JEFF ([facility]) Diastolic blood pressure 82 mm[Hg] 82 mm[Hg] JEFF ([facility]) Body height 68 [in_i] 68 [in_i] JEFF ([facility]) Body mass index (BMI) [Ratio] 39.4 kg/m2 39.4 k g/m2 JEFF ([facility]) Systolic blood pressure 123 mm[Hg] 123 mm[Hg] A [facility] ([facility]) Body weight 4150 [oz_av] 4150 [oz_av] JEFF ([facility]) Diastolic blood pressure 82 mm[Hg] 82 mm[Hg] JEFF ([facility]) Body height 68 [in_i] 68 [in_i] JEFF ([facility]) Body mass index (BMI) [Ratio] 39.4 kg/m2 39.4 k g/m2 JEFF ([facility]) Systolic blood pressure 123 mm[Hg] 123 mm[Hg] [facility] Body weight 4150 [oz_av] 4150 [oz_av] JEFF ([facility]) Diastolic blood pressure 82 mm[Hg] 82 mm[Hg] JEFF ([facility]) Body height 68 [in_i] 68 [in_i] JEFF ([facility]) Body mass index (BMI) [Ratio] 39.4 kg/m2 39.4 k g/m2 JEFF ([facility]) Systolic blood pressure 123 mm[Hg] 123 mm[Hg] [facility] Body weight 4150 [oz_av] 4150 [oz_av] JEFF ([facility]) Systolic blood pressure 123 mm[Hg] 123 mm[Hg] [facility] Diastolic blood pressure 82 mm[Hg] 82 mm[Hg] JEFF ([facility]) Body height 68 [in_i] 68 [in_i] JEFF ([facility]) Body mass index (BMI) [Ratio] 39.4 kg/m2 39.4 k g/m2 JEFF ([facility]) Body weight 4150 [oz_av] 4150 [oz_av] JEFF ([facility]) Diastolic blood pressure 82 mm[Hg] 82 mm[Hg] JEFF ([facility]) Body height 68 [in_i] 68 [in_i] JEFF ([facility]) Body mass index (BMI) [Ratio] 39.4 kg/m2 39.4 k g/m2 JEFF ([facility]) Systolic blood pressure 123 mm[Hg] 123 mm[Hg] A THENA ([facility]) Body weight 4150 [oz_av] 4150 [oz_av] JEFF ([facility]) Body height 68 [in_i] 68 [in_i] JEFF ([facility]) Body mass index (BMI) [Ratio] 39.4 kg/m2 39.4 k g/m2 JEFF ([facility]) Systolic blood pressure 123 mm[Hg] 123 mm[Hg] A THENA ([facility]) Body weight 4150 [oz_av] 4150 [oz_av] JEFF ([facility]) Diastolic blood pressure 82 mm[Hg] 82 mm[Hg] JEFF ([facility]) Body height 68 [in_i] 68 [in_i] JEFF ([facility]) Body height 68 [in_i] 68 [in_i] JEFF ([facility]) Body height 68 [in_i] 68 [in_i] JEFF ([facility]) Body height 68 [in_i] 68 [in_i] JEFF ([facility]) Body height 68 [in_i] 68 [in_i] JEFF ([facility]) Body height 68 [in_i] 68 [in_i] JEFF ([facility]) Body height 68 [in_i] 68 [in_i] JEFF ([facility]) Body height 68 [in_i] 68 [in_i] JEFF ([facility]) Body height 68 [in_i] 68 [in_i] JEFF ([facility]) Body height 0.00 in Normal (applies to non-numeric resu lts) 0.00 in [facility] ([facility]) Body weight Measured 0.00 lbs Normal (applies to n on-numeric results) 0.00 lbs [facility] Diastolic blood pressure 0 mm[Hg] Normal (applies to non-numeric results) 0 mm[Hg] [facility] ([facility]) Systolic blood pressure 0 mm[Hg] Normal (applies t o non-numeric results) 0 mm[Hg] [facility] ([facility]) Body mass index (BMI) [Ratio] 0.00 kg/m2 No rmal (applies to non-numeric results) 0.00 kg/m2 [facility] ([facility]) Body mass index (BMI) [Ratio] 39.07 kg/m2 39.07 kg/m2 eCW1 ([facility]) Body weight 257 [lb_av] 257 [lb_av] eCW1 ([facility]) Body height 68 [in_i] 68 [in_i] eCW1 ([facility]) Oxygen saturation in Arterial blood by Pulse oximetry 92 % 92 % MEDENT ([facility] ) Body weight 258.50 [lb_av] 258.50 [lb_av] MEDEN T ([facility] ) Systolic blood pressure 110 mm[Hg] 110 mm[Hg] M EDENT ([facility] ) Diastolic blood pressure 78 mm[Hg] 78 mm[Hg] MED[facility] ([facility] ) Heart rate 90 /min 90 /min [facility] ([facility] ) Body temperature 97.1 [degF] 97.1 [degF] [facility] ([facility] ) Body height 68 [in_i] 68 [in_i] MEDENT ([facility] ) 5'8" Body mass index (BMI) [Ratio] 39.3 kg/m2 39.3 k g/m2 MEDENT ([facility] ) Body weight 3334 [oz_av] 3334 [oz_av] JEFF ([facility]) Body height 68 [in_i] 68 [in_i] JEFF ([facility]) Diastolic blood pressure 85 mm[Hg] 85 mm[Hg] JEFF ([facility]) Body mass index (BMI) [Ratio] 31.7 kg/m2 31.7 k g/m2 JEFF ([facility]) Systolic blood pressure 121 mm[Hg] 121 mm[Hg] A [facility] ([facility]) Body mass index (BMI) [Ratio] 31.7 kg/m2 31.7 k g/m2 JEFF ([facility]) Body height 68 [in_i] 68 [in_i] JEFF ([facility]) Diastolic blood pressure 85 mm[Hg] 85 mm[Hg] JEFF ([facility]) Systolic blood pressure 121 mm[Hg] 121 mm[Hg] A [facility] ([facility]) Body weight 3334 [oz_av] 3334 [oz_av] JEFF ([facility]) Diastolic blood pressure 85 mm[Hg] 85 mm[Hg] JEFF ([facility]) Body height 68 [in_i] 68 [in_i] JEFF ([facility]) Body mass index (BMI) [Ratio] 31.7 kg/m2 31.7 k g/m2 JEFF ([facility]) Systolic blood pressure 121 mm[Hg] 121 mm[Hg] A THEN ([facility]) Body weight 3334 [oz_av] 3334 [oz_av] JEFF ([facility]) Body mass index (BMI) [Ratio] 31.7 kg/m2 31.7 k g/m2 JEFF ([facility]) Diastolic blood pressure 85 mm[Hg] 85 mm[Hg] JEFF ([facility]) Body height 68 [in_i] 68 [in_i] JEFF ([facility]) Systolic blood pressure 121 mm[Hg] 121 mm[Hg] A [facility] ([facility]) Body weight 3334 [oz_av] 3334 [oz_av] JEFF ([facility]) Diastolic blood pressure 85 mm[Hg] 85 mm[Hg] JEFF ([facility]) Body height 68 [in_i] 68 [in_i] JEFF ([facility]) Body mass index (BMI) [Ratio] 31.7 kg/m2 31.7 k g/m2 JEFF ([facility]) Systolic blood pressure 121 mm[Hg] 121 mm[Hg] A THENA ([facility]) Body weight 3334 [oz_av] 3334 [oz_av] JEFF ([facility]) Diastolic blood pressure 85 mm[Hg] 85 mm[Hg] JEFF ([facility]) Body height 68 [in_i] 68 [in_i] JEFF ([facility]) Body mass index (BMI) [Ratio] 31.7 kg/m2 31.7 k g/m2 JEFF ([facility]) Systolic blood pressure 121 mm[Hg] 121 mm[Hg] A THENA ([facility]) Body weight 3334 [oz_av] 3334 [oz_av] JEFF ([facility]) Diastolic blood pressure 85 mm[Hg] 85 mm[Hg] JEFF ([facility]) Body height 68 [in_i] 68 [in_i] JEFF ([facility]) Body mass index (BMI) [Ratio] 31.7 kg/m2 31.7 k g/m2 JEFF ([facility]) Systolic blood pressure 121 mm[Hg] 121 mm[Hg] A THENA ([facility]) Body weight 3334 [oz_av] 3334 [oz_av] JEFF ([facility]) Diastolic blood pressure 85 mm[Hg] 85 mm[Hg] JEFF ([facility]) Body height 68 [in_i] 68 [in_i] JEFF ([facility]) Body mass index (BMI) [Ratio] 31.7 kg/m2 31.7 k g/m2 JEFF ([facility]) Systolic blood pressure 121 mm[Hg] 121 mm[Hg] A THENA ([facility]) Body weight 3334 [oz_av] 3334 [oz_av] JEFF ([facility]) Body height 68 [in_i] 68 [in_i] JEFF ([facility]) Body mass index (BMI) [Ratio] 31.7 kg/m2 31.7 k g/m2 JEFF ([facility]) Diastolic blood pressure 85 mm[Hg] 85 mm[Hg] JEFF ([facility]) Body weight 3334 [oz_av] 3334 [oz_av] JEFF ([facility]) Systolic blood pressure 121 mm[Hg] 121 mm[Hg] [facility] Diastolic blood pressure 85 mm[Hg] 85 mm[Hg] JEFF ([facility]) Body height 68 [in_i] 68 [in_i] JEFF ([facility]) Body mass index (BMI) [Ratio] 31.7 kg/m2 31.7 k g/m2 JEFF ([facility]) Systolic blood pressure 121 mm[Hg] 121 mm[Hg] A THENA ([facility]) Body weight 3334 [oz_av] 3334 [oz_av] JEFF ([facility]) Diastolic blood pressure 85 mm[Hg] 85 mm[Hg] JEFF ([facility]) Body height 68 [in_i] 68 [in_i] JEFF ([facility]) Body mass index (BMI) [Ratio] 31.7 kg/m2 31.7 k g/m2 JEFF ([facility]) Systolic blood pressure 121 mm[Hg] 121 mm[Hg] A THENA ([facility]) Body weight 3334 [oz_av] 3334 [oz_av] JEFF ([facility]) Diastolic blood pressure 85 mm[Hg] 85 mm[Hg] JEFF ([facility]) Body height 68 [in_i] 68 [in_i] JEFF ([facility]) Body mass index (BMI) [Ratio] 31.7 kg/m2 31.7 k g/m2 JEFF ([facility]) Systolic blood pressure 121 mm[Hg] 121 mm[Hg] A THENA ([facility]) Body weight 3334 [oz_av] 3334 [oz_av] JEFF ([facility]) Body weight 260.6 [lb_av] 260.6 [lb_av] eCW1 ([facility]) Body height 68 [in_i] 68 [in_i] eCW1 ([facility]) Body mass index (BMI) [Ratio] 39.62 kg/m2 39.62 kg/m2 W1 ([facility]) Diastolic blood pressure 0 mm[Hg] Normal (applies to non-numeric results) 0 mm[Hg] [facility] ([facility]) Body height 0.00 in Normal (applies to non-numeric resu lts) 0.00 in [facility] [facility] Body weight Measured 0.00 lbs Normal (applies to n on-numeric results) 0.00 lbs [facility] ([facility]) Body mass index (BMI) [Ratio] 0.00 kg/m2 No rmal (applies to non-numeric results) 0.00 kg/m2 [facility] ([facility]) Systolic blood pressure 0 mm[Hg] Normal (applies t o non-numeric results) 0 mm[Hg] [facility] ([facility]) Diastolic blood pressure 84 mm[Hg] 84 mm[Hg] MEDENT ([facility] ) Heart rate 87 /min 87 /min MEDENT ([facility] ) Body temperature 96.4 [degF] 96.4 [degF] MEDENT ([facility] ) Body weight 263.31 [lb_av] 263.31 [lb_av] MEDEN T ([facility] ) Body mass index (BMI) [Ratio] 40.0 kg/m2 40.0 k g/m2 MEDENT ([facility] ) Oxygen saturation in Arterial blood by Pulse oximetry 97 % 97 % MEDENT ([facility] ) Systolic blood pressure 122 mm[Hg] 122 mm[Hg] M EDENT ([facility] ) Body height 68 [in_i] 68 [in_i] MEDENT ([facility] ) 5'8" Body height 68 [in_i] 68 [in_i] JEFF ([facility]) Body mass index (BMI) [Ratio] 40 kg/m2 40 kg/ m2 JEFF ([facility]) Systolic blood pressure 115 mm[Hg] 115 mm[Hg] [facility] Body weight 4208 [oz_av] 4208 [oz_av] JEFF ([facility]) Diastolic blood pressure 78 mm[Hg] 78 mm[Hg] JEFF ([facility]) Diastolic blood pressure 78 mm[Hg] 78 mm[Hg] JEFF ([facility]) Body height 68 [in_i] 68 [in_i] JEFF ([facility]) Body mass index (BMI) [Ratio] 40 kg/m2 40 kg/ m2 EJFF ([facility]) Systolic blood pressure 115 mm[Hg] 115 mm[Hg] [facility] Body weight 4208 [oz_av] 4208 [oz_av] JEFF ([facility]) Diastolic blood pressure 78 mm[Hg] 78 mm[Hg] JEFF ([facility]) Body height 68 [in_i] 68 [in_i] JEFF ([facility]) Body mass index (BMI) [Ratio] 40 kg/m2 40 kg/ m2 JEFF ([facility]) Systolic blood pressure 115 mm[Hg] 115 mm[Hg] [facility] Body weight 4208 [oz_av] 4208 [oz_av] JEFF ([facility]) Body height 68 [in_i] 68 [in_i] JEFF ([facility]) Body mass index (BMI) [Ratio] 40 kg/m2 40 kg/ m2 JEFF ([facility]) Diastolic blood pressure 78 mm[Hg] 78 mm[Hg] JEFF ([facility]) Systolic blood pressure 115 mm[Hg] 115 mm[Hg] [facility] Body weight 4208 [oz_av] 4208 [oz_av] JEFF ([facility]) Diastolic blood pressure 78 mm[Hg] 78 mm[Hg] JEFF ([facility]) Body height 68 [in_i] 68 [in_i] JEFF ([facility]) Body mass index (BMI) [Ratio] 40 kg/m2 40 kg/ m2 JEFF ([facility]) Systolic blood pressure 115 mm[Hg] 115 mm[Hg] [facility] Body weight 4208 [oz_av] 4208 [oz_av] JEFF ([facility]) Body mass index (BMI) [Ratio] 40 kg/m2 40 kg/ m2 JEFF ([facility]) Diastolic blood pressure 78 mm[Hg] 78 mm[Hg] JEFF ([facility]) Body height 68 [in_i] 68 [in_i] JEFF ([facility]) Systolic blood pressure 115 mm[Hg] 115 mm[Hg] A THENA ([facility]) Body weight 4208 [oz_av] 4208 [oz_av] JEFF ([facility]) Diastolic blood pressure 78 mm[Hg] 78 mm[Hg] JEFF ([facility]) Body height 68 [in_i] 68 [in_i] JEFF ([facility]) Body mass index (BMI) [Ratio] 40 kg/m2 40 kg/ m2 JEFF ([facility]) Systolic blood pressure 115 mm[Hg] 115 mm[Hg] A THENA ([facility]) Body weight 4208 [oz_av] 4208 [oz_av] JEFF ([facility]) Diastolic blood pressure 78 mm[Hg] 78 mm[Hg] JEFF ([facility]) Body height 68 [in_i] 68 [in_i] JEFF ([facility]) Body mass index (BMI) [Ratio] 40 kg/m2 40 kg/ m2 JEFF ([facility]) Systolic blood pressure 115 mm[Hg] 115 mm[Hg] A THENA ([facility]) Body weight 4208 [oz_av] 4208 [oz_av] JEFF ([facility]) Diastolic blood pressure 78 mm[Hg] 78 mm[Hg] JEFF ([facility]) Body height 68 [in_i] 68 [in_i] JEFF ([facility]) Body mass index (BMI) [Ratio] 40 kg/m2 40 kg/ m2 JFEF ([facility]) Systolic blood pressure 115 mm[Hg] 115 mm[Hg] [facility] Body weight 4208 [oz_av] 4208 [oz_av] JEFF ([facility]) Diastolic blood pressure 78 mm[Hg] 78 mm[Hg] JEFF ([facility]) Body height 68 [in_i] 68 [in_i] JEFF ([facility]) Body mass index (BMI) [Ratio] 40 kg/m2 40 kg/ m2 JEFF ([facility]) Systolic blood pressure 115 mm[Hg] 115 mm[Hg] [facility] Body weight 4208 [oz_av] 4208 [oz_av] JEFF ([facility]) Diastolic blood pressure 78 mm[Hg] 78 mm[Hg] JEFF ([facility]) Body mass index (BMI) [Ratio] 40 kg/m2 40 kg/ m2 JEFF ([facility]) Systolic blood pressure 115 mm[Hg] 115 mm[Hg] [facility] Body weight 4208 [oz_av] 4208 [oz_av] JEFF ([facility]) Body height 68 [in_i] 68 [in_i] JEFF ([facility]) Diastolic blood pressure 78 mm[Hg] 78 mm[Hg] JEFF ([facility]) Body height 68 [in_i] 68 [in_i] JEFF ([facility]) Body mass index (BMI) [Ratio] 40 kg/m2 40 kg/ m2 JEFF ([facility]) Systolic blood pressure 115 mm[Hg] 115 mm[Hg] A THENA ([facility]) Body weight 4208 [oz_av] 4208 [oz_av] JEFF ([facility]) Diastolic blood pressure 78 mm[Hg] 78 mm[Hg] JEFF ([facility]) Body height 68 [in_i] 68 [in_i] JEFF ([facility]) Body mass index (BMI) [Ratio] 40 kg/m2 40 kg/ m2 JEFF ([facility]) Systolic blood pressure 115 mm[Hg] 115 mm[Hg] A THENA ([facility]) Body weight 4208 [oz_av] 4208 [oz_av] JEFF ([facility]) Diastolic blood pressure 78 mm[Hg] 78 mm[Hg] JEFF ([facility]) Body height 68 [in_i] 68 [in_i] JEFF ([facility]) Body mass index (BMI) [Ratio] 40 kg/m2 40 kg/ m2 JEFF ([facility]) Systolic blood pressure 115 mm[Hg] 115 mm[Hg] A THENA ([facility]) Body weight 4208 [oz_av] 4208 [oz_av] JEFF ([facility]) Systolic blood pressure 125 mm[Hg] 125 mm[Hg] M EDENT ([facility] Diastolic blood pressure 83 mm[Hg] 83 mm[Hg] MEDENT ([facility] Heart rate 92 /min 92 /min MEDENT ([facility] Body mass index (BMI) [Ratio] 39.5 kg/m2 39.5 k g/m2 MEDENT ([facility] Body height 68 [in_i] 68 [in_i] MEDENT ([facility] 5'8" Body weight 260.00 [lb_av] 260.00 [lb_av] MEDEN T ([facility] Body height 0.00 in Normal (applies to non-numeric resu lts) 0.00 in [facility] ([facility]) Body weight Measured 0.00 lbs Normal (applies to n on-numeric results) 0.00 lbs [facility] ([facility]) Body mass index (BMI) [Ratio] 0.00 kg/m2 No rmal (applies to non-numeric results) 0.00 kg/m2 [facility] ([facility]) Systolic blood pressure 0 mm[Hg] Normal (applies t o non-numeric results) 0 mm[Hg] [facility] ([facility]) Diastolic blood pressure 0 mm[Hg] Normal (applies to non-numeric results) 0 mm[Hg] [facility] ([facility]) Diastolic blood pressure 83 mm[Hg] 83 mm[Hg] JEFF ([facility]) Body height 68 [in_i] 68 [in_i] JEFF ([facility]) Body mass index (BMI) [Ratio] 39.6 kg/m2 39.6 k g/m2 JEFF ([facility]) Systolic blood pressure 125 mm[Hg] 125 mm[Hg] A [facility] ([facility]) Body weight 4164 [oz_av] 4164 [oz_av] JEFF ([facility]) Diastolic blood pressure 83 mm[Hg] 83 mm[Hg] JEFF ([facility]) Body height 68 [in_i] 68 [in_i] JEFF ([facility]) Body mass index (BMI) [Ratio] 39.6 kg/m2 39.6 k g/m2 JEFF ([facility]) Systolic blood pressure 125 mm[Hg] 125 mm[Hg] A [facility] ([facility]) Body weight 4164 [oz_av] 4164 [oz_av] JEFF ([facility]) Systolic blood pressure 125 mm[Hg] 125 mm[Hg] [facility] Diastolic blood pressure 83 mm[Hg] 83 mm[Hg] JEFF ([facility]) Body height 68 [in_i] 68 [in_i] JEFF ([facility]) Body weight 4164 [oz_av] 4164 [oz_av] JEFF ([facility]) Body mass index (BMI) [Ratio] 39.6 kg/m2 39.6 k g/m2 JEFF ([facility]) Systolic blood pressure 125 mm[Hg] 125 mm[Hg] [facility] Body weight 4164 [oz_av] 4164 [oz_av] JEFF ([facility]) Diastolic blood pressure 83 mm[Hg] 83 mm[Hg] JEFF ([facility]) Body height 68 [in_i] 68 [in_i] JEFF ([facility]) Body mass index (BMI) [Ratio] 39.6 kg/m2 39.6 k g/m2 JEFF ([facility]) Body mass index (BMI) [Ratio] 39.6 kg/m2 39.6 k g/m2 JEFF ([facility]) Diastolic blood pressure 83 mm[Hg] 83 mm[Hg] JEFF ([facility]) Body height 68 [in_i] 68 [in_i] JEFF ([facility]) Body weight 4164 [oz_av] 4164 [oz_av] JEFF ([facility]) Systolic blood pressure 125 mm[Hg] 125 mm[Hg] [facility] Diastolic blood pressure 83 mm[Hg] 83 mm[Hg] JEFF ([facility]) Body height 68 [in_i] 68 [in_i] JEFF ([facility]) Body mass index (BMI) [Ratio] 39.6 kg/m2 39.6 k g/m2 JEFF ([facility]) Systolic blood pressure 125 mm[Hg] 125 mm[Hg] A THENA ([facility]) Body weight 4164 [oz_av] 4164 [oz_av] JEFF ([facility]) Body mass index (BMI) [Ratio] 39.6 kg/m2 39.6 k g/m2 JEFF ([facility]) Systolic blood pressure 125 mm[Hg] 125 mm[Hg] A THENA ([facility]) Body weight 4164 [oz_av] 4164 [oz_av] JEFF ([facility]) Diastolic blood pressure 83 mm[Hg] 83 mm[Hg] JEFF ([facility]) Body height 68 [in_i] 68 [in_i] JEFF ([facility]) Diastolic blood pressure 83 mm[Hg] 83 mm[Hg] JEFF ([facility]) Body height 68 [in_i] 68 [in_i] JEFF ([facility]) Body mass index (BMI) [Ratio] 39.6 kg/m2 39.6 k g/m2 JEFF ([facility]) Systolic blood pressure 125 mm[Hg] 125 mm[Hg] A THENA ([facility]) Body weight 4164 [oz_av] 4164 [oz_av] JEFF ([facility]) Diastolic blood pressure 83 mm[Hg] 83 mm[Hg] JEFF ([facility]) Body height 68 [in_i] 68 [in_i] JEFF ([facility]) Body mass index (BMI) [Ratio] 39.6 kg/m2 39.6 k g/m2 JEFF ([facility]) Systolic blood pressure 125 mm[Hg] 125 mm[Hg] A THENA ([facility]) Body weight 4164 [oz_av] 4164 [oz_av] JEFF ([facility]) Diastolic blood pressure 83 mm[Hg] 83 mm[Hg] JEFF ([facility]) Body height 68 [in_i] 68 [in_i] JEFF ([facility]) Body mass index (BMI) [Ratio] 39.6 kg/m2 39.6 k g/m2 JEFF ([facility]) Systolic blood pressure 125 mm[Hg] 125 mm[Hg] A THENA ([facility]) Body weight 4164 [oz_av] 4164 [oz_av] JEFF ([facility]) Diastolic blood pressure 83 mm[Hg] 83 mm[Hg] JEFF ([facility]) Body height 68 [in_i] 68 [in_i] JEFF ([facility]) Body mass index (BMI) [Ratio] 39.6 kg/m2 39.6 k g/m2 JEFF ([facility]) Systolic blood pressure 125 mm[Hg] 125 mm[Hg] A THENA ([facility]) Body weight 4164 [oz_av] 4164 [oz_av] JEFF ([facility]) Diastolic blood pressure 83 mm[Hg] 83 mm[Hg] JEFF ([facility]) Body height 68 [in_i] 68 [in_i] JEFF ([facility]) Body mass index (BMI) [Ratio] 39.6 kg/m2 39.6 k g/m2 JEFF ([facility]) Systolic blood pressure 125 mm[Hg] 125 mm[Hg] A THENA ([facility]) Body weight 4164 [oz_av] 4164 [oz_av] JEFF ([facility]) Diastolic blood pressure 83 mm[Hg] 83 mm[Hg] JEFF ([facility]) Body height 68 [in_i] 68 [in_i] JEFF ([facility]) Body mass index (BMI) [Ratio] 39.6 kg/m2 39.6 k g/m2 JEFF ([facility]) Systolic blood pressure 125 mm[Hg] 125 mm[Hg] A THENA ([facility]) Body weight 4164 [oz_av] 4164 [oz_av] JEFF ([facility]) Diastolic blood pressure 83 mm[Hg] 83 mm[Hg] JEFF ([facility]) Body height 68 [in_i] 68 [in_i] JEFF ([facility]) Body mass index (BMI) [Ratio] 39.6 kg/m2 39.6 k g/m2 JEFF ([facility]) Systolic blood pressure 125 mm[Hg] 125 mm[Hg] A THENA ([facility]) Body weight 4164 [oz_av] 4164 [oz_av] JEFF ([facility]) Diastolic blood pressure 83 mm[Hg] 83 mm[Hg] JEFF ([facility]) Body height 68 [in_i] 68 [in_i] JEFF ([facility]) Body mass index (BMI) [Ratio] 39.6 kg/m2 39.6 k g/m2 JEFF ([facility]) Systolic blood pressure 125 mm[Hg] 125 mm[Hg] A THENA ([facility]) Body weight 4164 [oz_av] 4164 [oz_av] JEFF ([facility]) Body weight Measured 0.00 lbs Normal (applies to n on-numeric results) 0.00 lbs [facility] ([facility]) Body height 0.00 in Normal (applies to non-numeric resu lts) 0.00 in [facility] ([facility]) Body mass index (BMI) [Ratio] 0.00 kg/m2 No rmal (applies to non-numeric results) 0.00 kg/m2 [facility] ([facility]) Systolic blood pressure 142 mm[Hg] Normal (applies t o non-numeric results) 142 mm[Hg] [facility] ([facility]) Diastolic blood pressure 78 mm[Hg] Normal (applies to non-numeric results) 78 mm[Hg] [facility] ([facility]) Systolic blood pressure 126 mm[Hg] 126 mm[Hg] M EDENT ([facility]) Diastolic blood pressure 70 mm[Hg] 70 mm[Hg] MEDENT ([facility]) Heart rate 77 /min 77 /min MEDENT ([facility]) Oxygen saturation in Arterial blood by Pulse oximetry 98 % 98 % MEDENT ([facility]) Body temperature 97.8 [degF] 97.8 [degF] MEDENT ([facility]) Body height 68 [in_i] 68 [in_i] MEDENT ([facility]) 5'8" Body weight 268.44 [lb_av] 268.44 [lb_av] MEDEN T ([facility]) Body mass index (BMI) [Ratio] 40.8 kg/m2 40.8 k g/m2 MEDENT ([facility] ) Diastolic blood pressure 88 mm[Hg] 88 mm[Hg] JEFF ([facility]) Body height 68 [in_i] 68 [in_i] JEFF ([facility]) Body mass index (BMI) [Ratio] 40 kg/m2 40 kg/ m2 JEFF ([facility]) Systolic blood pressure 124 mm[Hg] 124 mm[Hg] A THENA ([facility]) Body weight 4214 [oz_av] 4214 [oz_av] JEFF ([facility]) Diastolic blood pressure 88 mm[Hg] 88 mm[Hg] JEFF ([facility]) Body height 68 [in_i] 68 [in_i] JEFF ([facility]) Body mass index (BMI) [Ratio] 40 kg/m2 40 kg/ m2 JEFF ([facility]) Systolic blood pressure 124 mm[Hg] 124 mm[Hg] [facility] Body weight 4214 [oz_av] 4214 [oz_av] JEFF ([facility]) Diastolic blood pressure 88 mm[Hg] 88 mm[Hg] JEFF ([facility]) Body height 68 [in_i] 68 [in_i] JEFF ([facility]) Body mass index (BMI) [Ratio] 40 kg/m2 40 kg/ m2 JEFF ([facility]) Systolic blood pressure 124 mm[Hg] 124 mm[Hg] A THENA ([facility]) Body weight 4214 [oz_av] 4214 [oz_av] JEFF ([facility]) Diastolic blood pressure 88 mm[Hg] 88 mm[Hg] JEFF ([facility]) Body height 68 [in_i] 68 [in_i] JEFF ([facility]) Body mass index (BMI) [Ratio] 40 kg/m2 40 kg/ m2 JEFF ([facility]) Systolic blood pressure 124 mm[Hg] 124 mm[Hg] [facility] Body weight 4214 [oz_av] 4214 [oz_av] JEFF ([facility]) Diastolic blood pressure 88 mm[Hg] 88 mm[Hg] JEFF ([facility]) Body height 68 [in_i] 68 [in_i] JEFF ([facility]) Body mass index (BMI) [Ratio] 40 kg/m2 40 kg/ m2 JEFF ([facility]) Systolic blood pressure 124 mm[Hg] 124 mm[Hg] [facility] Body weight 4214 [oz_av] 4214 [oz_av] JEFF ([facility]) Diastolic blood pressure 88 mm[Hg] 88 mm[Hg] JEFF ([facility]) Body height 68 [in_i] 68 [in_i] JEFF ([facility]) Body mass index (BMI) [Ratio] 40 kg/m2 40 kg/ m2 JEFF ([facility]) Systolic blood pressure 124 mm[Hg] 124 mm[Hg] [facility] Body weight 4214 [oz_av] 4214 [oz_av] JEFF ([facility]) Diastolic blood pressure 88 mm[Hg] 88 mm[Hg] JEFF ([facility]) Body mass index (BMI) [Ratio] 40 kg/m2 40 kg/ m2 JEFF ([facility]) Systolic blood pressure 124 mm[Hg] 124 mm[Hg] A [facility] ([facility]) Body height 68 [in_i] 68 [in_i] JEFF ([facility]) Body weight 4214 [oz_av] 4214 [oz_av] JEFF ([facility]) Diastolic blood pressure 88 mm[Hg] 88 mm[Hg] JEFF ([facility]) Body height 68 [in_i] 68 [in_i] JEFF ([facility]) Body mass index (BMI) [Ratio] 40 kg/m2 40 kg/ m2 JEFF ([facility]) Systolic blood pressure 124 mm[Hg] 124 mm[Hg] A THENA ([facility]) Body weight 4214 [oz_av] 4214 [oz_av] JEFF ([facility]) Diastolic blood pressure 88 mm[Hg] 88 mm[Hg] JEFF ([facility]) Body mass index (BMI) [Ratio] 40 kg/m2 40 kg/ m2 JEFF ([facility]) Body height 68 [in_i] 68 [in_i] JEFF ([facility]) Systolic blood pressure 124 mm[Hg] 124 mm[Hg] A THENA ([facility]) Body weight 4214 [oz_av] 4214 [oz_av] JEFF ([facility]) Diastolic blood pressure 88 mm[Hg] 88 mm[Hg] JEFF ([facility]) Body height 68 [in_i] 68 [in_i] JEFF ([facility]) Body mass index (BMI) [Ratio] 40 kg/m2 40 kg/ m2 JEFF ([facility]) Systolic blood pressure 124 mm[Hg] 124 mm[Hg] [facility] Body weight 4214 [oz_av] 4214 [oz_av] JEFF ([facility]) Diastolic blood pressure 88 mm[Hg] 88 mm[Hg] JEFF ([facility]) Body height 68 [in_i] 68 [in_i] JEFF ([facility]) Body mass index (BMI) [Ratio] 40 kg/m2 40 kg/ m2 JEFF ([facility]) Systolic blood pressure 124 mm[Hg] 124 mm[Hg] A THENA ([facility]) Body weight 4214 [oz_av] 4214 [oz_av] JEFF ([facility]) Diastolic blood pressure 88 mm[Hg] 88 mm[Hg] JEFF ([facility]) Body height 68 [in_i] 68 [in_i] JEFF ([facility]) Body mass index (BMI) [Ratio] 40 kg/m2 40 kg/ m2 JEFF ([facility]) Systolic blood pressure 124 mm[Hg] 124 mm[Hg] A THEN ([facility]) Body weight 4214 [oz_av] 4214 [oz_av] JEFF ([facility]) Diastolic blood pressure 88 mm[Hg] 88 mm[Hg] JEFF ([facility]) Body height 68 [in_i] 68 [in_i] JEFF ([facility]) Body mass index (BMI) [Ratio] 40 kg/m2 40 kg/ m2 JEFF ([facility]) Systolic blood pressure 124 mm[Hg] 124 mm[Hg] A THENA ([facility]) Body weight 4214 [oz_av] 4214 [oz_av] JEFF ([facility]) Body weight 4214 [oz_av] 4214 [oz_av] JEFF ([facility]) Diastolic blood pressure 88 mm[Hg] 88 mm[Hg] JEFF ([facility]) Body height 68 [in_i] 68 [in_i] JEFF ([facility]) Body mass index (BMI) [Ratio] 40 kg/m2 40 kg/ m2 JEFF ([facility]) Systolic blood pressure 124 mm[Hg] 124 mm[Hg] A THEN ([facility]) Diastolic blood pressure 88 mm[Hg] 88 mm[Hg] JEFF ([facility]) Body height 68 [in_i] 68 [in_i] JEFF ([facility]) Body mass index (BMI) [Ratio] 40 kg/m2 40 kg/ m2 JEFF ([facility]) Systolic blood pressure 124 mm[Hg] 124 mm[Hg] [facility] Body weight 4214 [oz_av] 4214 [oz_av] JEFF ([facility]) Diastolic blood pressure 88 mm[Hg] 88 mm[Hg] JEFF ([facility]) Body height 68 [in_i] 68 [in_i] JEFF ([facility]) Body mass index (BMI) [Ratio] 40 kg/m2 40 kg/ m2 JEFF ([facility]) Systolic blood pressure 124 mm[Hg] 124 mm[Hg] A [facility] ([facility]) Body weight 4214 [oz_av] 4214 [oz_av] JEFF ([facility]) Diastolic blood pressure 88 mm[Hg] 88 mm[Hg] JEFF ([facility]) Body height 68 [in_i] 68 [in_i] JEFF ([facility]) Body mass index (BMI) [Ratio] 40 kg/m2 40 kg/ m2 JEFF ([facility]) Systolic blood pressure 124 mm[Hg] 124 mm[Hg] A THENA ([facility]) Body weight 4214 [oz_av] 4214 [oz_av] JEFF ([facility]) Diastolic blood pressure 83 mm[Hg] 83 mm[Hg] JEFF ([facility]) Body height 68 [in_i] 68 [in_i] JEFF ([facility]) Body mass index (BMI) [Ratio] 40.31 kg/m2 40.31 kg/m2 JEFF ([facility]) Systolic blood pressure 134 mm[Hg] 134 mm[Hg] [facility] Body weight 4226.08 [oz_av] 4226.08 [oz_av] ATH ALVARO ([facility]) Body mass index (BMI) [Ratio] 40.31 kg/m2 40.31 kg/m2 JEFF ([facility]) Diastolic blood pressure 83 mm[Hg] 83 mm[Hg] JEFF ([facility]) Body height 68 [in_i] 68 [in_i] JEFF ([facility]) Systolic blood pressure 134 mm[Hg] 134 mm[Hg] A THENA ([facility]) Body weight 4226.08 [oz_av] 4226.08 [oz_av] ATH ALVARO ([facility]) Diastolic blood pressure 83 mm[Hg] 83 mm[Hg] JEFF ([facility]) Body weight 4226.08 [oz_av] 4226.08 [oz_av] ATH ALVARO ([facility]) Body height 68 [in_i] 68 [in_i] JEFF ([facility]) Body mass index (BMI) [Ratio] 40.31 kg/m2 40.31 kg/m2 JEFF ([facility]) Systolic blood pressure 134 mm[Hg] 134 mm[Hg] [facility] Diastolic blood pressure 83 mm[Hg] 83 mm[Hg] JEFF ([facility]) Body height 68 [in_i] 68 [in_i] JEFF ([facility]) Body mass index (BMI) [Ratio] 40.31 kg/m2 40.31 kg/m2 JEFF ([facility]) Systolic blood pressure 134 mm[Hg] 134 mm[Hg] A THENA ([facility]) Body weight 4226.08 [oz_av] 4226.08 [oz_av] ATH ALVARO ([facility]) Diastolic blood pressure 83 mm[Hg] 83 mm[Hg] JEFF ([facility]) Body height 68 [in_i] 68 [in_i] JEFF ([facility]) Body mass index (BMI) [Ratio] 40.31 kg/m2 40.31 kg/m2 JEFF ([facility]) Systolic blood pressure 134 mm[Hg] 134 mm[Hg] A THENA ([facility]) Body weight 4226.08 [oz_av] 4226.08 [oz_av] ATH ALVARO ([facility]) Body weight 4226.08 [oz_av] 4226.08 [oz_av] ATH ALVARO ([facility]) Body height 68 [in_i] 68 [in_i] JEFF ([facility]) Body mass index (BMI) [Ratio] 40.31 kg/m2 40.31 kg/m2 JEFF ([facility]) Systolic blood pressure 134 mm[Hg] 134 mm[Hg] [facility] Diastolic blood pressure 83 mm[Hg] 83 mm[Hg] JEFF ([facility]) Systolic blood pressure 134 mm[Hg] 134 mm[Hg] [facility] Body weight 4226.08 [oz_av] 4226.08 [oz_av] ATH ALVARO ([facility]) Diastolic blood pressure 83 mm[Hg] 83 mm[Hg] JEFF ([facility]) Body height 68 [in_i] 68 [in_i] JEFF ([facility]) Body mass index (BMI) [Ratio] 40.31 kg/m2 40.31 kg/m2 JEFF ([facility]) Diastolic blood pressure 83 mm[Hg] 83 mm[Hg] JEFF ([facility]) Body height 68 [in_i] 68 [in_i] JEFF ([facility]) Body mass index (BMI) [Ratio] 40.31 kg/m2 40.31 kg/m2 JEFF ([facility]) Systolic blood pressure 134 mm[Hg] 134 mm[Hg] A THENA ([facility]) Body weight 4226.08 [oz_av] 4226.08 [oz_av] ATH ALVARO ([facility]) Diastolic blood pressure 83 mm[Hg] 83 mm[Hg] JEFF ([facility]) Body height 68 [in_i] 68 [in_i] JEFF ([facility]) Body mass index (BMI) [Ratio] 40.31 kg/m2 40.31 kg/m2 JEFF ([facility]) Systolic blood pressure 134 mm[Hg] 134 mm[Hg] A THENA ([facility]) Body weight 4226.08 [oz_av] 4226.08 [oz_av] ATH ALVARO ([facility]) Body mass index (BMI) [Ratio] 40.31 kg/m2 40.31 kg/m2 JEFF ([facility]) Systolic blood pressure 134 mm[Hg] 134 mm[Hg] [facility] Body weight 4226.08 [oz_av] 4226.08 [oz_av] ATH ALVARO ([facility]) Diastolic blood pressure 83 mm[Hg] 83 mm[Hg] JEFF ([facility]) Body height 68 [in_i] 68 [in_i] JEFF ([facility]) Diastolic blood pressure 83 mm[Hg] 83 mm[Hg] JEFF ([facility]) Body height 68 [in_i] 68 [in_i] JEFF ([facility]) Body mass index (BMI) [Ratio] 40.31 kg/m2 40.31 kg/m2 JEFF ([facility]) Systolic blood pressure 134 mm[Hg] 134 mm[Hg] A THENA ([facility]) Body weight 4226.08 [oz_av] 4226.08 [oz_av] ATH ALVARO ([facility]) Systolic blood pressure 0 mm[Hg] Normal (applies t o non-numeric results) 0 mm[Hg] [facility] ([facility]) Body height 0.00 in Normal (applies to non-numeric resu lts) 0.00 in [facility] ([facility]) Body weight Measured 0.00 lbs Normal (applies to n on-numeric results) 0.00 lbs [facility] ([facility]) Diastolic blood pressure 0 mm[Hg] Normal (applies to non-numeric results) 0 mm[Hg] [facility] ([facility]) Body mass index (BMI) [Ratio] 0.00 kg/m2 No rmal (applies to non-numeric results) 0.00 kg/m2 [facility] ([facility]) Patient Treatment Plan of Care Planned Activity Planned Date Details Description Data Source (s) Alcohol Prep Pads 06/20/2021 12:00:00 AM EDT JEFF ([facility]) ziprasidone 60 MG Oral Capsule JEFF ([facility]) Ergocalciferol 59488 UNT Oral Capsule JEFF ([facility]) 0.5 ML dulaglutide 1.5 MG/ML Auto-Injector [Trulicity] JEFF ([facility]) Triamcinolone Acetonide 1 MG/ML Topical Cream JEFF ([facility]) Trazodone Hydrochloride 50 MG Oral Tablet JEFF ([facility]) Steglatro 5 mg tablet JEFF ([facility]) Simvastatin 10 MG Oral Tablet JEFF ([facility]) Docusate Sodium 50 MG / sennosides, SHELTER 8.6 MG Oral Tablet JEFF ([facility]) sennosides 8.6 mg-docusate sodium 50 mg capsule Take 2 capsules by oral route at bedtime. JEFF ([facility]) sennosides, SHELTER 8.6 MG Oral Tablet [Senna-Time] JEFF ([facility]) Propranolol Hydrochloride 20 MG Oral Tablet JEFF ([facility]) Prazosin 1 MG Oral Capsule A THEN ([facility]) OneTouch Verio test strips USE UP TO TWO TIMES A DAY DIRECTED SULLIVAN ([facility]) OneTouch Verio Flex Meter AT [facility] ([facility]) OneTouch Delica Plus Lancet 33 gauge SULLIVAN ([facility]) Ofloxacin 3 MG/ML Otic Solution JEFF ([facility]) Mirtazapine 45 MG Oral Tablet JEFF ([facility]) Mirtazapine 15 MG Oral Tablet JEFF ([facility]) lamotrigine 25 MG Oral Tablet JEFF ([facility]) lamotrigine 100 MG Oral Tablet JEFF ([facility]) Ketoconazole 20 MG/ML Medicated Shampoo JEFF ([facility]) Famotidine 20 MG Oral Tablet JEFF ([facility]) Docusate Sodium 100 MG Oral Capsule [DOK] JEFF ([facility]) Clonidine Hydrochloride 0.2 MG Oral Tablet JEFF ([facility]) Clonazepam 1 MG Oral Tablet JEFF ([facility]) Clonazepam 0.5 MG Disintegrating Oral Tablet JEFF ([facility]) Clindamycin 150 MG Oral Capsule JEFF ([facility]) Cephalexin 500 MG Oral Capsule JEFF ([facility]) cefdinir 300 MG Oral Capsule JEFF ([facility]) buspirone hydrochloride 7.5 MG Oral Tablet JEFF ([facility]) buspirone hydrochloride 15 MG Oral Tablet JEFF ([facility]) buspirone hydrochloride 10 MG Oral Tablet JEFF ([facility]) benztropine mesylate 0.5 MG Oral Tablet JEFF ([facility]) benzonatate 200 MG Oral Capsule JEFF ([facility]) Azithromycin 250 MG Oral Tablet JEFF ([facility]) Amitriptyline Hydrochloride 75 MG Oral Tablet JEFF ([facility]) Amitriptyline Hydrochloride 50 MG Oral Tablet JEFF ([facility]) lamotrigine 25 MG Oral Tablet JEFF ([facility]) lamotrigine 100 MG Oral Tablet JEFF ([facility]) Ketoconazole 20 MG/ML Medicated Shampoo JEFF ([facility]) Famotidine 20 MG Oral Tablet JEFF ([facility]) Docusate Sodium 100 MG Oral Capsule [DOK] JEFF ([facility]) Clonidine Hydrochloride 0.2 MG Oral Tablet JEFF ([facility]) Clonazepam 1 MG Oral Tablet JEFF ([facility]) Clonazepam 0.5 MG Disintegrating Oral Tablet JEFF ([facility]) Clindamycin 150 MG Oral Capsule JEFF ([facility]) Cephalexin 500 MG Oral Capsule JEFF ([facility]) cefdinir 300 MG Oral Capsule JEFF ([facility]) buspirone hydrochloride 7.5 MG Oral Tablet JEFF ([facility]) buspirone hydrochloride 15 MG Oral Tablet JEFF ([facility]) buspirone hydrochloride 10 MG Oral Tablet JEFF ([facility]) benztropine mesylate 0.5 MG Oral Tablet JEFF ([facility]) benzonatate 200 MG Oral Capsule JEFF ([facility]) BD Ultra-Fine Short Pen Needle 31 gauge x 5/16" USE ONCE DAILY JEFF ([facility]) Azithromycin 250 MG Oral Tablet JEFF ([facility]) Amitriptyline Hydrochloride 75 MG Oral Tablet JEFF ([facility]) Amitriptyline Hydrochloride 50 MG Oral Tablet JEFF ([facility]) Isopropyl Alcohol 0.7 ML/ML Medicated Pad JEFF ([facility]) Clindamycin 150 MG Oral Capsule JEFF ([facility]) Cephalexin 500 MG Oral Capsule JEFF ([facility]) cefdinir 300 MG Oral Capsule JEFF ([facility]) buspirone hydrochloride 7.5 MG Oral Tablet JEFF ([facility]) buspirone hydrochloride 15 MG Oral Tablet JEFF ([facility]) buspirone hydrochloride 10 MG Oral Tablet JEFF ([facility]) benztropine mesylate 0.5 MG Oral Tablet JEFF ([facility]) benzonatate 200 MG Oral Capsule JEFF ([facility]) BD Ultra-Fine Short Pen Needle 31 gauge x 5/16" USE ONCE DAILY JEFF ([facility]) Azithromycin 250 MG Oral Tablet JEFF ([facility]) Amitriptyline Hydrochloride 75 MG Oral Tablet JEFF ([facility]) Amitriptyline Hydrochloride 50 MG Oral Tablet JEFF ([facility]) Isopropyl Alcohol 0.7 ML/ML Medicated Pad JEFF ([facility]) ziprasidone 60 MG Oral Capsule JEFF ([facility]) Ergocalciferol 22876 UNT Oral Capsule JEFF ([facility]) 0.5 ML dulaglutide 1.5 MG/ML Auto-Injector [Trulicity] JEFF ([facility]) Triamcinolone Acetonide 1 MG/ML Topical Cream JEFF ([facility]) Steglatro 5 mg tablet JEFF ([facility]) Simvastatin 10 MG Oral Tablet JEFF ([facility]) Docusate Sodium 50 MG / sennosides, SHELTER 8.6 MG Oral Tablet JEFF ([facility]) sennosides 8.6 mg-docusate sodium 50 mg capsule Take 2 capsules by oral route at bedtime. JEFF ([facility]) sennosides, SHELTER 8.6 MG Oral Tablet [Senna-Time] JEFF ([facility]) Propranolol Hydrochloride 20 MG Oral Tablet JEFF ([facility]) Prazosin 1 MG Oral Capsule A THENA ([facility]) OneTouch Verio Flex Meter AT DIONICIO ([facility]) OneTouch Delica Plus Lancet 33 gauge JEFF ([facility]) Mirtazapine 45 MG Oral Tablet JEFF ([facility]) Mirtazapine 15 MG Oral Tablet JEFF ([facility]) lamotrigine 25 MG Oral Tablet JEFF ([facility]) lamotrigine 100 MG Oral Tablet JEFF ([facility]) Ketoconazole 20 MG/ML Medicated Shampoo JEFF ([facility]) Famotidine 20 MG Oral Tablet JEFF ([facility]) Docusate Sodium 100 MG Oral Capsule [DOK] JEFF ([facility]) Clonidine Hydrochloride 0.2 MG Oral Tablet JEFF ([facility]) Clonazepam 1 MG Oral Tablet JEFF ([facility]) Clonazepam 0.5 MG Oral Tablet JEFF ([facility]) Clonazepam 0.5 MG Disintegrating Oral Tablet JEFF ([facility]) Clindamycin 150 MG Oral Capsule JEFF ([facility]) cefdinir 300 MG Oral Capsule JEFF ([facility]) buspirone hydrochloride 7.5 MG Oral Tablet JEFF ([facility]) buspirone hydrochloride 15 MG Oral Tablet JEFF ([facility]) buspirone hydrochloride 10 MG Oral Tablet JEFF ([facility]) benztropine mesylate 0.5 MG Oral Tablet JEFF ([facility]) benzonatate 200 MG Oral Capsule JEFF ([facility]) Azithromycin 250 MG Oral Tablet JEFF ([facility]) Amitriptyline Hydrochloride 75 MG Oral Tablet JEFF ([facility]) Amitriptyline Hydrochloride 50 MG Oral Tablet JEFF ([facility]) Isopropyl Alcohol 0.7 ML/ML Medicated Pad JEFF ([facility]) ziprasidone 60 MG Oral Capsule JEFF ([facility]) Ergocalciferol 24675 UNT Oral Capsule JEFF ([facility]) 0.5 ML dulaglutide 1.5 MG/ML Auto-Injector [Trulicity] JEFF ([facility]) Triamcinolone Acetonide 1 MG/ML Topical Cream JEFF ([facility]) Steglatro 5 mg tablet JEFF ([facility]) Simvastatin 10 MG Oral Tablet JEFF ([facility]) Docusate Sodium 50 MG / sennosides, SHELTER 8.6 MG Oral Tablet JFEF ([facility]) sennosides 8.6 mg-docusate sodium 50 mg capsule Take 2 capsules by oral route at bedtime. JEFF ([facility]) sennosides, SHELTER 8.6 MG Oral Tablet [Senna-Time] JEFF ([facility]) Propranolol Hydrochloride 20 MG Oral Tablet JEFF ([facility]) Prazosin 1 MG Oral Capsule A THENA ([facility]) OneTouch Verio Flex Meter AT [facility] ([facility]) OneTouch Delica Plus Lancet 33 gauge JEFF ([facility]) Mirtazapine 45 MG Oral Tablet JEFF ([facility]) Mirtazapine 15 MG Oral Tablet JEFF ([facility]) lamotrigine 25 MG Oral Tablet JEFF ([facility]) lamotrigine 100 MG Oral Tablet JEFF ([facility]) Ketoconazole 20 MG/ML Medicated Shampoo JEFF ([facility]) Famotidine 20 MG Oral Tablet JEFF ([facility]) Docusate Sodium 100 MG Oral Capsule [DOK] JEFF ([facility]) Clonidine Hydrochloride 0.2 MG Oral Tablet JEFF ([facility]) Clonazepam 1 MG Oral Tablet JEFF ([facility]) Clonazepam 0.5 MG Oral Tablet JEFF ([facility]) Clonazepam 0.5 MG Disintegrating Oral Tablet JEFF ([facility]) Clindamycin 150 MG Oral Capsule JEFF ([facility]) cefdinir 300 MG Oral Capsule JEFF ([facility]) buspirone hydrochloride 7.5 MG Oral Tablet JEFF ([facility]) buspirone hydrochloride 15 MG Oral Tablet JEFF ([facility]) buspirone hydrochloride 10 MG Oral Tablet JEFF ([facility]) benztropine mesylate 0.5 MG Oral Tablet JEFF ([facility]) benzonatate 200 MG Oral Capsule JEFF ([facility]) Azithromycin 250 MG Oral Tablet JEFF ([facility]) Amitriptyline Hydrochloride 75 MG Oral Tablet JEFF ([facility]) Amitriptyline Hydrochloride 50 MG Oral Tablet JEFF ([facility]) Isopropyl Alcohol 0.7 ML/ML Medicated Pad JEFF ([facility]) ziprasidone 60 MG Oral Capsule JEFF ([facility]) Ergocalciferol 43367 UNT Oral Capsule JEFF ([facility]) 0.5 ML dulaglutide 1.5 MG/ML Auto-Injector [Trulicity] JEFF ([facility]) Triamcinolone Acetonide 1 MG/ML Topical Cream JEFF ([facility]) Steglatro 5 mg tablet JEFF ([facility]) Simvastatin 10 MG Oral Tablet JEFF ([facility]) Docusate Sodium 50 MG / sennosides, SHELTER 8.6 MG Oral Tablet JEFF ([facility]) sennosides 8.6 mg-docusate sodium 50 mg capsule Take 2 capsules by oral route at bedtime. JEFF ([facility]) sennosides, SHELTER 8.6 MG Oral Tablet [Senna-Time] JEFF ([facility]) Propranolol Hydrochloride 20 MG Oral Tablet JEFF ([facility]) Prazosin 1 MG Oral Capsule A THENA ([facility]) OneTouch Verio Flex Meter AT [facility] ([facility]) OneTouch Delica Plus Lancet 33 gauge JEFF ([facility]) Mirtazapine 45 MG Oral Tablet JEFF ([facility]) Mirtazapine 15 MG Oral Tablet JEFF ([facility]) lamotrigine 25 MG Oral Tablet JEFF ([facility]) ziprasidone 60 MG Oral Capsule JEFF ([facility]) Ergocalciferol 85247 UNT Oral Capsule JEFF ([facility]) 0.5 ML dulaglutide 1.5 MG/ML Auto-Injector [Trulicity] JEFF ([facility]) Triamcinolone Acetonide 1 MG/ML Topical Cream JEFF ([facility]) Trazodone Hydrochloride 50 MG Oral Tablet JEFF ([facility]) Steglatro 5 mg tablet JEFF ([facility]) Simvastatin 10 MG Oral Tablet JEFF ([facility]) Docusate Sodium 50 MG / sennosides, SHELTER 8.6 MG Oral Tablet JEFF ([facility]) sennosides 8.6 mg-docusate sodium 50 mg capsule Take 2 capsules by oral route at bedtime. JEFF ([facility]) sennosides, SHELTER 8.6 MG Oral Tablet [Senna-Time] JEFF ([facility]) Propranolol Hydrochloride 20 MG Oral Tablet EJFF ([facility]) Prazosin 1 MG Oral Capsule A THEN ([facility]) OneTouch Verio test strips USE UP TO TWO TIMES A DAY DIRECTED SULLIVAN ([facility]) OneTouch Verio Flex Meter AT [facility] ([facility]) OneTouch Delica Plus Lancet 33 gauge JEFF ([facility]) Mirtazapine 45 MG Oral Tablet JEFF ([facility]) Mirtazapine 15 MG Oral Tablet JEFF ([facility]) ziprasidone 60 MG Oral Capsule JEFF ([facility]) Ergocalciferol 45986 UNT Oral Capsule JEFF ([facility]) 0.5 ML dulaglutide 1.5 MG/ML Auto-Injector [Trulicity] JEFF ([facility]) Triamcinolone Acetonide 1 MG/ML Topical Cream JEFF ([facility]) Trazodone Hydrochloride 50 MG Oral Tablet JEFF ([facility]) Steglatro 5 mg tablet JEFF ([facility]) Simvastatin 10 MG Oral Tablet JEFF ([facility]) Docusate Sodium 50 MG / sennosides, SHELTER 8.6 MG Oral Tablet JEFF ([facility]) sennosides 8.6 mg-docusate sodium 50 mg capsule Take 2 capsules by oral route at bedtime. JEFF ([facility]) sennosides, SHELTER 8.6 MG Oral Tablet [Senna-Time] JEFF ([facility]) Propranolol Hydrochloride 20 MG Oral Tablet JEFF ([facility]) Prazosin 1 MG Oral Capsule A THENA ([facility]) OneTouch Verio test strips USE UP TO TWO TIMES A DAY DIRECTED JEFF ([facility]) OneTouch Verio Flex Meter AT [facility] ([facility]) OneTouch Delica Plus Lancet 33 gauge JEFF ([facility]) Mirtazapine 45 MG Oral Tablet JEFF ([facility]) Mirtazapine 15 MG Oral Tablet JEFF ([facility]) lamotrigine 25 MG Oral Tablet JEFF ([facility]) lamotrigine 100 MG Oral Tablet JEFF ([facility]) Ketoconazole 20 MG/ML Medicated Shampoo JEFF ([facility]) Famotidine 20 MG Oral Tablet JEFF ([facility]) Docusate Sodium 100 MG Oral Capsule [DOK] JEFF ([facility]) Clonidine Hydrochloride 0.2 MG Oral Tablet JEFF ([facility]) Clonazepam 1 MG Oral Tablet JEFF ([facility]) Clonazepam 0.5 MG Oral Tablet JEFF ([facility]) Clonazepam 0.5 MG Disintegrating Oral Tablet JEFF ([facility]) ziprasidone 60 MG Oral Capsule JEFF ([facility]) Ergocalciferol 25059 UNT Oral Capsule JEFF ([facility]) 0.5 ML dulaglutide 1.5 MG/ML Auto-Injector [Trulicity] JEFF ([facility]) Triamcinolone Acetonide 1 MG/ML Topical Cream JEFF ([facility]) Steglatro 5 mg tablet JEFF ([facility]) Simvastatin 10 MG Oral Tablet JEFF ([facility]) Docusate Sodium 50 MG / sennosides, SHELTER 8.6 MG Oral Tablet JEFF ([facility]) sennosides 8.6 mg-docusate sodium 50 mg capsule Take 2 capsules by oral route at bedtime. JEFF ([facility]) sennosides, SHELTER 8.6 MG Oral Tablet [Senna-Time] JEFF ([facility]) Propranolol Hydrochloride 20 MG Oral Tablet JEFF ([facility]) Prazosin 1 MG Oral Capsule A THENA ([facility]) OneTouch Verio Flex Meter AT [facility] ([facility]) OneTouch Delica Plus Lancet 33 gauge JEFF ([facility]) Mirtazapine 45 MG Oral Tablet JEFF ([facility]) Mirtazapine 15 MG Oral Tablet JEFF ([facility]) lamotrigine 25 MG Oral Tablet JEFF ([facility]) lamotrigine 100 MG Oral Tablet JEFF ([facility]) Ketoconazole 20 MG/ML Medicated Shampoo JEFF ([facility]) Famotidine 20 MG Oral Tablet JEFF ([facility]) Docusate Sodium 100 MG Oral Capsule [DOK] JEFF ([facility]) Clonidine Hydrochloride 0.2 MG Oral Tablet JEFF ([facility]) Clonazepam 1 MG Oral Tablet JEFF ([facility]) Clonazepam 0.5 MG Disintegrating Oral Tablet JEFF ([facility]) Clindamycin 150 MG Oral Capsule JEFF ([facility]) cefdinir 300 MG Oral Capsule JEFF ([facility]) buspirone hydrochloride 7.5 MG Oral Tablet JEFF ([facility]) buspirone hydrochloride 10 MG Oral Tablet JEFF ([facility]) benztropine mesylate 0.5 MG Oral Tablet JEFF ([facility]) benzonatate 200 MG Oral Capsule JEFF ([facility]) Azithromycin 250 MG Oral Tablet JEFF ([facility]) Amitriptyline Hydrochloride 75 MG Oral Tablet JEFF ([facility]) Amitriptyline Hydrochloride 50 MG Oral Tablet JEFF ([facility]) Isopropyl Alcohol 0.7 ML/ML Medicated Pad JEFF ([facility]) Ketoconazole 20 MG/ML Medicated Shampoo JEFF ([facility]) Famotidine 20 MG Oral Tablet JEFF ([facility]) Docusate Sodium 100 MG Oral Capsule [DOK] JEFF ([facility]) Clonidine Hydrochloride 0.2 MG Oral Tablet JEFF ([facility]) Clonazepam 1 MG Oral Tablet JEFF ([facility]) Clindamycin 150 MG Oral Capsule JEFF ([facility]) cefdinir 300 MG Oral Capsule JEFF ([facility]) buspirone hydrochloride 7.5 MG Oral Tablet JEFF ([facility]) buspirone hydrochloride 10 MG Oral Tablet JEFF ([facility]) benztropine mesylate 0.5 MG Oral Tablet JEFF ([facility]) benzonatate 200 MG Oral Capsule JEFF ([facility]) BD Ultra-Fine Short Pen Needle 31 gauge x 5/16" USE DIRECTED ONCE DAILY JEFF ([facility]) Azithromycin 250 MG Oral Tablet JEFF ([facility]) Amitriptyline Hydrochloride 75 MG Oral Tablet JEFF ([facility]) Amitriptyline Hydrochloride 50 MG Oral Tablet JEFF ([facility]) Isopropyl Alcohol 0.7 ML/ML Medicated Pad JEFF ([facility]) lamotrigine 100 MG Oral Tablet JEFF ([facility]) Ketoconazole 20 MG/ML Medicated Shampoo JEFF ([facility]) Famotidine 20 MG Oral Tablet JEFF ([facility]) Docusate Sodium 100 MG Oral Capsule [DOK] JEFF ([facility]) Clonidine Hydrochloride 0.2 MG Oral Tablet JEFF ([facility]) Clonazepam 1 MG Oral Tablet JEFF ([facility]) Clonazepam 0.5 MG Oral Tablet JEFF ([facility]) Clonazepam 0.5 MG Disintegrating Oral Tablet JEFF ([facility]) Clindamycin 150 MG Oral Capsule JEFF ([facility]) cefdinir 300 MG Oral Capsule JEFF ([facility]) buspirone hydrochloride 7.5 MG Oral Tablet JEFF ([facility]) buspirone hydrochloride 15 MG Oral Tablet JEFF ([facility]) buspirone hydrochloride 10 MG Oral Tablet JEFF ([facility]) benztropine mesylate 0.5 MG Oral Tablet JEFF ([facility]) benzonatate 200 MG Oral Capsule JEFF ([facility]) Azithromycin 250 MG Oral Tablet JEFF ([facility]) Amitriptyline Hydrochloride 75 MG Oral Tablet JEFF ([facility]) Amitriptyline Hydrochloride 50 MG Oral Tablet EJFF ([facility]) Isopropyl Alcohol 0.7 ML/ML Medicated Pad JEFF ([facility]) ziprasidone 60 MG Oral Capsule JEFF ([facility]) 0.5 ML dulaglutide 1.5 MG/ML Auto-Injector [Trulicity] JEFF ([facility]) Triamcinolone Acetonide 1 MG/ML Topical Cream JEFF ([facility]) Steglatro 5 mg tablet JEFF ([facility]) Simvastatin 10 MG Oral Tablet JEFF ([facility]) Docusate Sodium 50 MG / sennosides, SHELTER 8.6 MG Oral Tablet JEFF ([facility]) sennosides 8.6 mg-docusate sodium 50 mg capsule Take 2 capsules by oral route at bedtime. JEFF ([facility]) Propranolol Hydrochloride 20 MG Oral Tablet JEFF ([facility]) Mirtazapine 45 MG Oral Tablet JEFF ([facility]) Mirtazapine 15 MG Oral Tablet JEFF ([facility]) lamotrigine 25 MG Oral Tablet JEFF ([facility]) Ketoconazole 20 MG/ML Medicated Shampoo JEFF ([facility]) Famotidine 20 MG Oral Tablet JEFF ([facility]) Clonidine Hydrochloride 0.2 MG Oral Tablet JEFF ([facility]) Clonazepam 1 MG Oral Tablet JEFF ([facility]) cefdinir 300 MG Oral Capsule JEFF ([facility]) buspirone hydrochloride 7.5 MG Oral Tablet JEFF ([facility]) buspirone hydrochloride 10 MG Oral Tablet JEFF ([facility]) benztropine mesylate 0.5 MG Oral Tablet JEFF ([facility]) benzonatate 200 MG Oral Capsule JEFF ([facility]) Azithromycin 250 MG Oral Tablet JEFF ([facility]) Amitriptyline Hydrochloride 75 MG Oral Tablet JEFF ([facility]) Amitriptyline Hydrochloride 50 MG Oral Tablet JEFF ([facility]) ziprasidone 60 MG Oral Capsule JEFF ([facility]) 0.5 ML dulaglutide 1.5 MG/ML Auto-Injector [Trulicity] JEFF ([facility]) Triamcinolone Acetonide 1 MG/ML Topical Cream JEFF ([facility]) Steglatro 5 mg tablet JEFF ([facility]) Simvastatin 10 MG Oral Tablet JEFF ([facility]) Docusate Sodium 50 MG / sennosides, SHELTER 8.6 MG Oral Tablet JEFF ([facility]) sennosides 8.6 mg-docusate sodium 50 mg capsule Take 2 capsules by oral route at bedtime. JEFF ([facility]) buspirone hydrochloride 10 MG Oral Tablet JEFF ([facility]) benztropine mesylate 0.5 MG Oral Tablet JEFF ([facility]) benzonatate 200 MG Oral Capsule JEFF ([facility]) Azithromycin 250 MG Oral Tablet JEFF ([facility]) Amitriptyline Hydrochloride 75 MG Oral Tablet JEFF ([facility]) Amitriptyline Hydrochloride 50 MG Oral Tablet JEFF ([facility]) ziprasidone 60 MG Oral Capsule JEFF ([facility]) 0.5 ML dulaglutide 1.5 MG/ML Auto-Injector [Trulicity] JEFF ([facility]) Triamcinolone Acetonide 1 MG/ML Topical Cream JEFF ([facility]) Steglatro 5 mg tablet JEFF ([facility]) Simvastatin 10 MG Oral Tablet JEFF ([facility]) Docusate Sodium 50 MG / sennosides, SHELTER 8.6 MG Oral Tablet JEFF ([facility]) ziprasidone 60 MG Oral Capsule JEFF ([facility]) Ergocalciferol 67661 UNT Oral Capsule JEFF ([facility]) 0.5 ML dulaglutide 1.5 MG/ML Auto-Injector [Trulicity] JEFF ([facility]) Triamcinolone Acetonide 1 MG/ML Topical Cream JEFF ([facility]) Steglatro 5 mg tablet JEFF ([facility]) Simvastatin 10 MG Oral Tablet JEFF ([facility]) Docusate Sodium 50 MG / sennosides, SHELTER 8.6 MG Oral Tablet JEFF ([facility]) sennosides 8.6 mg-docusate sodium 50 mg capsule Take 2 capsules by oral route at bedtime. JEFF ([facility]) sennosides, SHELTER 8.6 MG Oral Tablet [Senna-Time] JEFF ([facility]) Propranolol Hydrochloride 20 MG Oral Tablet JEFF ([facility]) Prazosin 1 MG Oral Capsule A THENA ([facility]) OneTouch Verio test strips USE DIRECTED UP TO TWO TIMES A DAY JEFF ([facility]) OneTouch Verio Flex Meter AT [facility] ([facility]) OneTouch Delica Plus Lancet 33 gauge JEFF ([facility]) Mirtazapine 45 MG Oral Tablet JEFF ([facility]) Mirtazapine 15 MG Oral Tablet JEFF ([facility]) lamotrigine 25 MG Oral Tablet JEFF ([facility]) Ketoconazole 20 MG/ML Medicated Shampoo JEFF ([facility]) Famotidine 20 MG Oral Tablet JEFF ([facility]) Docusate Sodium 100 MG Oral Capsule [DOK] JEFF ([facility]) Clonidine Hydrochloride 0.2 MG Oral Tablet JEFF ([facility]) Clonazepam 1 MG Oral Tablet JEFF ([facility]) Clindamycin 150 MG Oral Capsule JEFF ([facility]) cefdinir 300 MG Oral Capsule JEFF ([facility]) buspirone hydrochloride 7.5 MG Oral Tablet JEFF ([facility]) buspirone hydrochloride 10 MG Oral Tablet JEFF ([facility]) benztropine mesylate 0.5 MG Oral Tablet JEFF ([facility]) benzonatate 200 MG Oral Capsule JEFF ([facility]) BD Ultra-Fine Short Pen Needle 31 gauge x 5/16" USE DIRECTED ONCE DAILY JEFF ([facility]) Azithromycin 250 MG Oral Tablet JEFF ([facility]) Amitriptyline Hydrochloride 75 MG Oral Tablet JEFF ([facility]) Amitriptyline Hydrochloride 50 MG Oral Tablet JEFF ([facility]) Isopropyl Alcohol 0.7 ML/ML Medicated Pad JEFF ([facility]) ziprasidone 60 MG Oral Capsule JEFF ([facility]) Ergocalciferol 52255 UNT Oral Capsule JEFF ([facility]) 0.5 ML dulaglutide 1.5 MG/ML Auto-Injector [Trulicity] JEFF ([facility]) Triamcinolone Acetonide 1 MG/ML Topical Cream JEFF ([facility]) Steglatro 5 mg tablet JEFF ([facility]) Simvastatin 10 MG Oral Tablet JEFF ([facility]) Docusate Sodium 50 MG / sennosides, SHELTER 8.6 MG Oral Tablet JEFF ([facility]) sennosides 8.6 mg-docusate sodium 50 mg capsule Take 2 capsules by oral route at bedtime. JEFF ([facility]) sennosides, SHELTER 8.6 MG Oral Tablet [Senna-Time] JEFF ([facility]) Propranolol Hydrochloride 20 MG Oral Tablet JEFF ([facility]) Prazosin 1 MG Oral Capsule A THENA ([facility]) OneTouch Verio test strips USE DIRECTED UP TO TWO TIMES A DAY SULLIVAN ([facility]) OneTouch Verio Flex Meter AT [facility] ([facility]) OneTouch Delica Plus Lancet 33 gauge JEFF ([facility]) Mirtazapine 45 MG Oral Tablet JEFF ([facility]) Mirtazapine 15 MG Oral Tablet JEFF ([facility]) lamotrigine 25 MG Oral Tablet JEFF ([facility]) sennosides 8.6 mg-docusate sodium 50 mg capsule Take 2 capsules by oral route at bedtime. JEFF ([facility]) Propranolol Hydrochloride 20 MG Oral Tablet JEFF ([facility]) Prazosin 1 MG Oral Capsule A THENA ([facility]) Mirtazapine 45 MG Oral Tablet JEFF ([facility]) Mirtazapine 15 MG Oral Tablet JEFF ([facility]) lamotrigine 25 MG Oral Tablet JEFF ([facility]) Ketoconazole 20 MG/ML Medicated Shampoo JEFF ([facility]) Famotidine 20 MG Oral Tablet JEFF ([facility]) Clonidine Hydrochloride 0.2 MG Oral Tablet JEFF ([facility]) Clonazepam 1 MG Oral Tablet JEFF ([facility]) Clonazepam 0.5 MG Oral Tablet JEFF ([facility]) cefdinir 300 MG Oral Capsule JEFF ([facility]) buspirone hydrochloride 7.5 MG Oral Tablet JEFF ([facility]) buspirone hydrochloride 10 MG Oral Tablet JEFF ([facility]) benztropine mesylate 0.5 MG Oral Tablet JEFF ([facility]) benzonatate 200 MG Oral Capsule JEFF ([facility]) Azithromycin 250 MG Oral Tablet JEFF ([facility]) Amitriptyline Hydrochloride 75 MG Oral Tablet JEFF ([facility]) Amitriptyline Hydrochloride 50 MG Oral Tablet JEFF ([facility]) Mirtazapine 45 MG Oral Tablet JEFF ([facility]) Mirtazapine 15 MG Oral Tablet JEFF ([facility]) Ketoconazole 20 MG/ML Medicated Shampoo JEFF ([facility]) Famotidine 20 MG Oral Tablet JEFF ([facility]) Clonidine Hydrochloride 0.2 MG Oral Tablet JEFF ([facility]) Clonazepam 1 MG Oral Tablet JEFF ([facility]) cefdinir 300 MG Oral Capsule JEFF ([facility]) buspirone hydrochloride 7.5 MG Oral Tablet JEFF ([facility]) buspirone hydrochloride 10 MG Oral Tablet JEFF ([facility]) benztropine mesylate 0.5 MG Oral Tablet JEFF ([facility]) benzonatate 200 MG Oral Capsule JEFF ([facility]) Azithromycin 250 MG Oral Tablet JEFF ([facility]) Amitriptyline Hydrochloride 75 MG Oral Tablet JEFF ([facility]) Amitriptyline Hydrochloride 50 MG Oral Tablet JEFF ([facility]) ziprasidone 60 MG Oral Capsule JEFF ([facility]) 0.5 ML dulaglutide 1.5 MG/ML Auto-Injector [Trulicity] JEFF ([facility]) Triamcinolone Acetonide 1 MG/ML Topical Cream JEFF ([facility]) Docusate Sodium 50 MG / sennosides, SHELTER 8.6 MG Oral Tablet JEFF ([facility]) sennosides 8.6 mg-docusate sodium 50 mg capsule Take 2 capsules by oral route at bedtime. JEFF ([facility]) Propranolol Hydrochloride 20 MG Oral Tablet JEFF ([facility]) Mirtazapine 45 MG Oral Tablet JEFF ([facility]) Mirtazapine 15 MG Oral Tablet JEFF ([facility]) Ketoconazole 20 MG/ML Medicated Shampoo JEFF ([facility]) Propranolol Hydrochloride 20 MG Oral Tablet JEFF ([facility]) Mirtazapine 45 MG Oral Tablet JEFF ([facility]) Mirtazapine 15 MG Oral Tablet JEFF ([facility]) lamotrigine 25 MG Oral Tablet JEFF ([facility]) Ketoconazole 20 MG/ML Medicated Shampoo JEFF ([facility]) Famotidine 20 MG Oral Tablet JEFF ([facility]) Clonidine Hydrochloride 0.2 MG Oral Tablet JEFF ([facility]) Clonazepam 1 MG Oral Tablet JEFF ([facility]) cefdinir 300 MG Oral Capsule JEFF ([facility]) buspirone hydrochloride 7.5 MG Oral Tablet JEFF ([facility]) Famotidine 20 MG Oral Tablet JEFF ([facility]) Clonidine Hydrochloride 0.2 MG Oral Tablet JEFF ([facility]) Clonazepam 1 MG Oral Tablet JEFF ([facility]) cefdinir 300 MG Oral Capsule JEFF ([facility]) buspirone hydrochloride 7.5 MG Oral Tablet JEFF ([facility]) buspirone hydrochloride 10 MG Oral Tablet JEFF ([facility]) benztropine mesylate 0.5 MG Oral Tablet JEFF ([facility]) benzonatate 200 MG Oral Capsule JEFF ([facility]) Azithromycin 250 MG Oral Tablet JEFF ([facility]) Amitriptyline Hydrochloride 75 MG Oral Tablet JEFF ([facility]) Amitriptyline Hydrochloride 50 MG Oral Tablet JEFF ([facility]) ziprasidone 60 MG Oral Capsule JEFF ([facility]) 0.5 ML dulaglutide 1.5 MG/ML Auto-Injector [Trulicity] JEFF ([facility]) Triamcinolone Acetonide 1 MG/ML Topical Cream JEFF ([facility]) Ketoconazole 20 MG/ML Medicated Shampoo JEFF ([facility]) Famotidine 20 MG Oral Tablet JEFF ([facility]) Clonidine Hydrochloride 0.2 MG Oral Tablet JEFF ([facility]) Clonazepam 1 MG Oral Tablet JEFF ([facility]) cefdinir 300 MG Oral Capsule JEFF ([facility]) buspirone hydrochloride 7.5 MG Oral Tablet JEFF ([facility]) buspirone hydrochloride 10 MG Oral Tablet JEFF ([facility]) benztropine mesylate 0.5 MG Oral Tablet JEFF ([facility]) benzonatate 200 MG Oral Capsule JEFF ([facility]) Azithromycin 250 MG Oral Tablet JEFF ([facility]) Amitriptyline Hydrochloride 75 MG Oral Tablet JEFF ([facility]) Amitriptyline Hydrochloride 50 MG Oral Tablet JEFF ([facility]) ziprasidone 60 MG Oral Capsule JEFF ([facility]) 0.5 ML dulaglutide 1.5 MG/ML Auto-Injector [Trulicity] JEFF ([facility]) Triamcinolone Acetonide 1 MG/ML Topical Cream JEFF ([facility]) Docusate Sodium 50 MG / sennosides, SHELTER 8.6 MG Oral Tablet JEFF ([facility]) sennosides 8.6 mg-docusate sodium 50 mg capsule Take 2 capsules by oral route at bedtime. JEFF ([facility]) Propranolol Hydrochloride 20 MG Oral Tablet JEFF ([facility]) ziprasidone 60 MG Oral Capsule JEFF ([facility]) 0.5 ML dulaglutide 1.5 MG/ML Auto-Injector [Trulicity] JEFF ([facility]) Triamcinolone Acetonide 1 MG/ML Topical Cream JEFF ([facility]) Docusate Sodium 50 MG / sennosides, SHELTER 8.6 MG Oral Tablet JEFF ([facility]) sennosides 8.6 mg-docusate sodium 50 mg capsule Take 2 capsules by oral route at bedtime. JEFF ([facility]) Propranolol Hydrochloride 20 MG Oral Tablet JEFF ([facility]) Mirtazapine 45 MG Oral Tablet JEFF ([facility]) Mirtazapine 15 MG Oral Tablet JEFF ([facility]) Ketoconazole 20 MG/ML Medicated Shampoo JEFF ([facility]) Famotidine 20 MG Oral Tablet JEFF ([facility]) Clonidine Hydrochloride 0.2 MG Oral Tablet JEFF ([facility]) Clonazepam 1 MG Oral Tablet JEFF ([facility]) Docusate Sodium 50 MG / sennosides, SHELTER 8.6 MG Oral Tablet JEFF ([facility]) sennosides 8.6 mg-docusate sodium 50 mg capsule Take 2 capsules by oral route at bedtime. JEFF ([facility]) Propranolol Hydrochloride 20 MG Oral Tablet JEFF ([facility]) Mirtazapine 45 MG Oral Tablet JEFF ([facility]) Mirtazapine 15 MG Oral Tablet JEFF ([facility]) Ketoconazole 20 MG/ML Medicated Shampoo JEFF ([facility]) Famotidine 20 MG Oral Tablet JEFF ([facility]) Clonidine Hydrochloride 0.2 MG Oral Tablet JEFF ([facility]) Clonazepam 1 MG Oral Tablet JEFF ([facility]) cefdinir 300 MG Oral Capsule JEFF ([facility]) buspirone hydrochloride 7.5 MG Oral Tablet JEFF ([facility]) buspirone hydrochloride 10 MG Oral Tablet JEFF ([facility]) benztropine mesylate 0.5 MG Oral Tablet JEFF ([facility]) benzonatate 200 MG Oral Capsule JEFF ([facility]) Azithromycin 250 MG Oral Tablet JEFF ([facility]) Amitriptyline Hydrochloride 75 MG Oral Tablet JEFF ([facility]) Amitriptyline Hydrochloride 50 MG Oral Tablet JEFF ([facility]) Docusate Sodium 50 MG / sennosides, SHELTER 8.6 MG Oral Tablet JEFF ([facility]) sennosides 8.6 mg-docusate sodium 50 mg capsule Take 2 capsules by oral route at bedtime. JEFF ([facility]) Propranolol Hydrochloride 20 MG Oral Tablet JEFF ([facility]) Mirtazapine 45 MG Oral Tablet JEFF ([facility]) Mirtazapine 15 MG Oral Tablet JEFF ([facility]) cefdinir 300 MG Oral Capsule JEFF ([facility]) buspirone hydrochloride 7.5 MG Oral Tablet JEFF ([facility]) buspirone hydrochloride 10 MG Oral Tablet JEFF ([facility]) benztropine mesylate 0.5 MG Oral Tablet JEFF ([facility]) benzonatate 200 MG Oral Capsule JEFF ([facility]) Azithromycin 250 MG Oral Tablet JEFF ([facility]) Amitriptyline Hydrochloride 75 MG Oral Tablet JEFF ([facility]) Amitriptyline Hydrochloride 50 MG Oral Tablet JEFF ([facility]) ziprasidone 60 MG Oral Capsule JEFF ([facility]) 0.5 ML dulaglutide 1.5 MG/ML Auto-Injector [Trulicity] JEFF ([facility]) Triamcinolone Acetonide 1 MG/ML Topical Cream JEFF ([facility])
[2021-08-19 14:02] VITALS: BP 117/70
--- NOTE | 2021-08-19 20:31 | ECGEPIP ---
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
== END 2021-08-19 14:21 | disposition home or self-care (01) ==
LOC: M ED 11:07
DX: E11.65 Type 2 diabetes mellitus with hyperglycemia (principal); J45.909 Unspecified asthma, uncomplicated; E03.9 Hypothyroidism, unspecified; E78.5 Hyperlipidemia, unspecified; F31.9 Bipolar disorder, unspecified; F41.9 Anxiety disorder, unspecified; F43.10 Post-traumatic stress disorder, unspecified; B19.20 Unspecified viral hepatitis C without hepatic coma; G40.909 Epilepsy, unspecified, not intractable, without status epilepticus; G47.33 Obstructive sleep apnea (adult) (pediatric); K58.9 Irritable bowel syndrome, unspecified; J32.9 Chronic sinusitis, unspecified; Z79.899 Other long term (current) drug therapy; Z79.4 Long term (current) use of insulin; Z79.890 Hormone replacement therapy; Z88.0 Allergy status to penicillin; Z88.2 Allergy status to sulfonamides; Z88.1 Allergy status to other antibiotic agents; Z88.8 Allergy status to other drugs, medicaments and biological substances; F17.210 Nicotine dependence, cigarettes, uncomplicated

== ENCOUNTER 2021-10-13 09:47 | Emergency (ER) | payer OTHER ==
[~2021-10-13] VITALS: Ht 172.7 cm; Wt 109.9 kg
[2021-10-13] MEDS ORDERED: clonazePAM 0.5 MG TAB PO ONE (10:20)
[2021-10-13 10:22] LABS: BASO # 0.1 10^3/uL (0.0-0.2); BASO % 1.4 % (0.0-1.0); EOS # 0.3 10^3/uL (0.0-0.5); EOS % 4.6 % (0.0-3.0); HEMATOCRIT 47.9 % (42.0-52.0); HEMOGLOBIN 15.9 g/dl (13.5-17.5); LYMPH # 1.3 10^3/uL (1.5-5.0); LYMPH % 17.5 % (24.0-44.0); MEAN CORPUSCULAR HEMOGLOBIN 29.1 pg (27.0-33.0); MEAN CORPUSCULAR HGB CONC 33.2 g/dl (32.0-36.5); MEAN CORPUSCULAR VOLUME 87.6 fl (80.0-96.0); MONO # 0.7 10^3/uL (0.0-0.8); NEUTROPHILS # 4.8 10^3/uL (1.5-8.5); NEUTROPHILS % 66.8 % (36.0-66.0); PLATELET COUNT, AUTOMATED 227 10^3/uL (150-450); RED BLOOD COUNT 5.47 10^6/uL (4.30-6.10); WHITE BLOOD COUNT 7.2 10^3/uL (4.0-10.0)
--- NOTE | 2021-10-13 10:30 | REP ---
INDICATION: CHEST PAIN COMPARISON: 07/30/2017 TECHNIQUE: Portable AP view of the chest FINDINGS: The mediastinum and cardiac silhouette are stable and within normal limits for portable technique. The lung mortensen are clear without acute consolidation, effusion, or pneumothorax. Skeletal structures are intact. IMPRESSION: No acute cardiopulmonary process appreciated. <Electronically signed by Gene Pagan > 10/13/21 1026
[2021-10-13 10:45] LABS: CK-MB VALUE MASS 1.1 NG/ML (<3.6); MB/CK RELATIVE INDEX 0.85 (< OR =4)
[2021-10-13 11:04] LABS: ALBUMIN 3.8 GM/DL (3.2-5.2); ALT/SGPT 31 U/L (12-78); BILIRUBIN,DIRECT 0.2 MG/DL (0.0-0.2); BILIRUBIN,TOTAL 0.5 MG/DL (0.2-1.0); BLOOD UREA NITROGEN 10 MG/DL (7-18); CARBON DIOXIDE LEVEL 27 MEQ/L (21-32); CHLORIDE LEVEL 104 MEQ/L (98-107); CREATININE FOR GFR 1.03 MG/DL (0.70-1.30); GLOMERULAR FILTRATION RATE > 60.0 (>60); GLUCOSE, FASTING 117 MG/DL (70-100); LIPASE 133 U/L (73-393); POTASSIUM SERUM 4.4 MEQ/L (3.5-5.1); SODIUM LEVEL 139 MEQ/L (136-145); TOTAL PROTEIN 7.1 GM/DL (6.4-8.2)
[2021-10-13] MEDS ORDERED: KLON0.5T PO ×4 (11:21→11:46)
[2021-10-13] MEDS ORDERED: CLON0.5T2 PO (11:28)
[2021-10-13 12:30] VITALS: BP 116/59
[2021-10-13 13:03] LABS: AMPHETAMINES LEVEL URINE NEGATIVE (NEGATIVE); BARBITURATES URINE NEGATIVE (NEGATIVE); BENZODIAZEPINES URINE NEGATIVE (NEGATIVE); CANNABINOIDS URINE NEGATIVE (NEGATIVE); COCAINE METABOLITE URINE NEGATIVE (NEGATIVE); METHADONE URINE NEGATIVE (NEGATIVE); OPIATES URINE NEGATIVE (NEGATIVE); PHENCYCLIDINE URINE NEGATIVE (NEGATIVE)
--- NOTE | 2021-10-13 17:58 | ECGEPIP ---
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
== END 2021-10-13 13:23 | disposition home or self-care (01) ==
LOC: M ED 09:47
DX: F41.9 Anxiety disorder, unspecified (principal); E11.9 Type 2 diabetes mellitus without complications; E07.9 Disorder of thyroid, unspecified; F33.9 Major depressive disorder, recurrent, unspecified; F43.10 Post-traumatic stress disorder, unspecified; R56.9 Unspecified convulsions; G89.29 Other chronic pain; M54.9 Dorsalgia, unspecified; Z87.820 Personal history of traumatic brain injury; Z88.0 Allergy status to penicillin; Z88.1 Allergy status to other antibiotic agents; Z88.2 Allergy status to sulfonamides; Z88.8 Allergy status to other drugs, medicaments and biological substances; Z91.018 Allergy to other foods; Z91.040 Latex allergy status; Z79.899 Other long term (current) drug therapy; Z79.890 Hormone replacement therapy; Z79.4 Long term (current) use of insulin; F17.210 Nicotine dependence, cigarettes, uncomplicated; F15.20 Other stimulant dependence, uncomplicated

== ENCOUNTER 2022-03-31 09:03 | Emergency (ER) | payer OTHER ==
[~2022-03-31] VITALS: Ht 172.7 cm; Wt 109.7 kg
[~2022-03-31 09:03] MED LIST changes: +BUPR-70 PO; -BUPR100T3 PO; +CLON1TAB8; -FENO134C PO; +FENO134C16 PO; -OMEP-221; -OMEP-221 PO; +OMEP40CA5; +OMEP40CA5 PO
[2022-03-31] MEDS ORDERED: IBUP200C33 PO (09:11)
[2022-03-31] MEDS ORDERED: ACETAMINOPHEN 325 MG TAB PO ONE (09:55)
[2022-03-31] MEDS ORDERED: LIDOCAINE 5% (LIDODERM) PATCH TD ONE (09:55)
[2022-03-31] MEDS ORDERED: KETOROLAC 30 MG/ML 1ML VIAL IM ONE (10:30)
[2022-03-31] MEDS ORDERED: MEDR4PAK PO (10:53)
[2022-03-31] MEDS ORDERED: SOMA350T PO (11:01)
[2022-03-31 11:11] VITALS: BP 133/99
[2022-03-31] MEDS ORDERED: **NOTE PATIENT COMMENT** MISC XX SCH (21:00)
== END 2022-03-31 11:12 | disposition home or self-care (01) ==
LOC: M ED 09:03
DX: M51.36 Other intervertebral disc degeneration, lumbar region (principal); E03.9 Hypothyroidism, unspecified; Z87.442 Personal history of urinary calculi; K21.9 Gastro-esophageal reflux disease without esophagitis; J45.909 Unspecified asthma, uncomplicated; R51.9 Headache, unspecified; F43.10 Post-traumatic stress disorder, unspecified; F42.9 Obsessive-compulsive disorder, unspecified; F31.9 Bipolar disorder, unspecified; F19.10 Other psychoactive substance abuse, uncomplicated; E11.9 Type 2 diabetes mellitus without complications; F17.200 Nicotine dependence, unspecified, uncomplicated; Z88.0 Allergy status to penicillin; Z88.1 Allergy status to other antibiotic agents; Z88.2 Allergy status to sulfonamides; Z88.8 Allergy status to other drugs, medicaments and biological substances; Z79.899 Other long term (current) drug therapy; Z79.4 Long term (current) use of insulin
CPT/HCPCS: 96372; 99283; J1885

== ENCOUNTER 2022-10-25 03:55 | Emergency (ER) | payer OTHER ==
[~2022-10-25] VITALS: Ht 172.7 cm; Wt 106.1 kg
[~2022-10-25 03:55] MED LIST changes: -FENO134C16 PO; +FENO134C20 PO; +IBUP200C33 PO; +MEDR4PAK PO; +SOMA350T PO
[2022-10-25 04:35] LABS: BASO # 0.1 10^3/uL (0.0-0.2); BASO % 0.4 % (0.0-1.0); EOS # 0.3 10^3/uL (0.0-0.5); EOS % 1.5 % (0.0-3.0); HEMOGLOBIN 19.4 g/dl (13.5-17.5); LYMPH # 1.1 10^3/uL (1.5-5.0); MEAN CORPUSCULAR HEMOGLOBIN 29.3 pg (27.0-33.0); MEAN CORPUSCULAR HGB CONC 33.7 g/dl (32.0-36.5); MEAN CORPUSCULAR VOLUME 86.9 fl (80.0-96.0); MONO # 1.4 10^3/uL (0.0-0.8); MONO % 6.6 % (2.0-8.0); NEUTROPHILS # 18.3 10^3/uL (1.5-8.5); NEUTROPHILS % 85.3 % (36.0-66.0); PLATELET COUNT, AUTOMATED 267 10^3/uL (150-450); RED BLOOD COUNT 6.62 10^6/uL (4.30-6.10); WHITE BLOOD COUNT 21.4 10^3/uL (4.0-10.0)
[2022-10-25 04:44] LABS: HEMATOCRIT 57.5 % (42.0-52.0)
[2022-10-25 04:59] LABS: LIPASE 32 U/L (12-53)
[2022-10-25 05:01] LABS: ALBUMIN 4.5 G/DL (3.2-5.2); ALKALINE PHOSPHATASE 79 U/L (46-116); ALT/SGPT 23 U/L (7.0-40); AST/SGOT 19 U/L (<34); BILIRUBIN,DIRECT 0.2 MG/DL (<0.4); BILIRUBIN,TOTAL 0.5 MG/DL (0.3-1.2); BLOOD UREA NITROGEN 22 MG/DL (9-23); CALCIUM LEVEL 9.9 MG/DL (8.5-10.1); CARBON DIOXIDE LEVEL 20 MMOL/L (20-31); CHLORIDE LEVEL 105 MMOL/L (98-107); CREATININE FOR GFR 0.84 MG/DL (0.70-1.30); GLOMERULAR FILTRATION RATE > 60.0 (>60); GLUCOSE, FASTING 190 MG/DL (60-100); POTASSIUM SERUM 4.4 MMOL/L (3.5-5.1); SODIUM LEVEL 136 MMOL/L (136-145); TOTAL PROTEIN 7.9 G/DL (5.7-8.2)
[2022-10-25 05:10] LABS: BARBITURATES URINE NEGATIVE (NEGATIVE); BENZODIAZEPINES URINE NEGATIVE (NEGATIVE); CANNABINOIDS URINE NEGATIVE (NEGATIVE); METHADONE URINE NEGATIVE (NEGATIVE); OPIATES URINE NEGATIVE (NEGATIVE); PHENCYCLIDINE URINE NEGATIVE (NEGATIVE)
[2022-10-25 05:21] LABS: AMPHETAMINES LEVEL URINE NEGATIVE (NEGATIVE); COCAINE METABOLITE URINE NEGATIVE (NEGATIVE)
[2022-10-25] MEDS ORDERED: ISOVUE-370 76% 100ML VIAL As Ordered ONE (06:17)
[2022-10-25] MEDS ORDERED: NS 1,000 ML IV ONE (06:20)
[2022-10-25] MEDS ORDERED: ONDANSETRON 4MG 2ML VIAL IV ONE (06:20)
[2022-10-25] MEDS ORDERED: DICYCLOMINE 10 MG CAP PO ONE (07:00)
[2022-10-25] MEDS ORDERED: PANTOPRAZOLE 40MG VIAL IV ONE (07:00)
[2022-10-25 12:17] VITALS: BP 166/82
== END 2022-10-25 12:12 | disposition home or self-care (01) ==
LOC: M ED 03:55
DX: K52.9 Noninfective gastroenteritis and colitis, unspecified (principal); E86.0 Dehydration; I10 Essential (primary) hypertension; N28.1 Cyst of kidney, acquired; J32.9 Chronic sinusitis, unspecified; Z87.442 Personal history of urinary calculi; R51.9 Headache, unspecified; J45.909 Unspecified asthma, uncomplicated; Z88.0 Allergy status to penicillin; Z88.1 Allergy status to other antibiotic agents; Z88.2 Allergy status to sulfonamides; Z88.6 Allergy status to analgesic agent; Z88.8 Allergy status to other drugs, medicaments and biological substances; Z91.018 Allergy to other foods; Z91.040 Latex allergy status; F17.200 Nicotine dependence, unspecified, uncomplicated; Z79.899 Other long term (current) drug therapy; Z79.4 Long term (current) use of insulin; Z79.84 Long term (current) use of oral hypoglycemic drugs
CPT/HCPCS: 74177; 80048; 80076; 80307; 81002; 83690; 85025; 87040; 87428; 87507; 96361; 96374; 96375; 99284; C9113; J2405

== ENCOUNTER 2022-12-11 02:58 | Emergency (ER) | payer OTHER ==
[~2022-12-11] VITALS: Ht 170.2 cm; Wt 104.5 kg
[2022-12-11 06:00] LABS: BASO # 0.1 10^3/uL (0.0-0.2); BASO % 0.6 % (0.0-1.0); EOS % 0.3 % (0.0-3.0); LYMPH # 1.3 10^3/uL (1.5-5.0); LYMPH % 8.6 % (24.0-44.0); MEAN CORPUSCULAR HEMOGLOBIN 29.3 pg (27.0-33.0); MEAN CORPUSCULAR HGB CONC 33.6 g/dl (32.0-36.5); MEAN CORPUSCULAR VOLUME 87.2 fl (80.0-96.0); MONO # 1.3 10^3/uL (0.0-0.8); MONO % 8.7 % (2.0-8.0); NEUTROPHILS # 11.7 10^3/uL (1.5-8.5); PLATELET COUNT, AUTOMATED 282 10^3/uL (150-450); WHITE BLOOD COUNT 14.5 10^3/uL (4.0-10.0)
[2022-12-11 06:04] LABS: RED BLOOD COUNT 6.01 10^6/uL (4.30-6.10)
[2022-12-11 06:05] LABS: HEMATOCRIT 52.4 % (42.0-52.0); HEMOGLOBIN 17.6 g/dl (13.5-17.5)
[2022-12-11 06:43] LABS: ETHYL ALCOHOL (ETHANOL) 0.005 % (0.000-0.010)
[2022-12-11 06:44] LABS: ACETAMINOPHEN LEVEL < 2.0 UG/ML (10.0-20.0); SALICYLATE LEVEL < 3.0 MG/DL (<30)
[2022-12-11 06:45] LABS: ALBUMIN 4.6 G/DL (3.2-5.2); ALKALINE PHOSPHATASE 85 U/L (46-116); ALT/SGPT 26 U/L (7.0-40); AST/SGOT 27 U/L (<34); BILIRUBIN,DIRECT 0.2 MG/DL (<0.4); BILIRUBIN,TOTAL 0.6 MG/DL (0.3-1.2); BLOOD UREA NITROGEN 9 MG/DL (9-23); CALCIUM LEVEL 9.2 MG/DL (8.5-10.1); CARBON DIOXIDE LEVEL 24 MMOL/L (20-31); CHLORIDE LEVEL 99 MMOL/L (98-107); CREATININE FOR GFR 0.72 MG/DL (0.70-1.30); GLOMERULAR FILTRATION RATE > 60.0 (>60); GLUCOSE, FASTING 141 MG/DL (60-100); POTASSIUM SERUM 4.4 MMOL/L (3.5-5.1); SODIUM LEVEL 135 MMOL/L (136-145)
[2022-12-11 06:47] LABS: CPK CREATINE PHOSPHOKINASE 301 U/L (46-171)
[2022-12-11 08:52] LABS: AMPHETAMINES LEVEL URINE NEGATIVE (NEGATIVE); BARBITURATES URINE NEGATIVE (NEGATIVE); BENZODIAZEPINES URINE NEGATIVE (NEGATIVE); CANNABINOIDS URINE NEGATIVE (NEGATIVE); COCAINE METABOLITE URINE NEGATIVE (NEGATIVE); METHADONE URINE NEGATIVE (NEGATIVE); OPIATES URINE NEGATIVE (NEGATIVE); PHENCYCLIDINE URINE NEGATIVE (NEGATIVE)
[2022-12-11] MEDS ORDERED: clonazePAM 1 MG TAB PO ONE (09:40)
[2022-12-11] MEDS ORDERED: NS 1,000 ML IV ONE (09:40)
[2022-12-11] MEDS ORDERED: SUCRALFATE 1 GM TAB PO ONE (09:40)
[2022-12-11] MEDS ORDERED: GI COCKTAIL 50ML BTL(HYOSCYAMINE/MAALOX/LIDOCAINE VISCOUS)(1:3:1) PO ONE (09:40)
[2022-12-11] MEDS ORDERED: LORazepam 1 MG TAB PO STA (10:55)
[2022-12-11 11:22] VITALS: BP 157/95
== END 2022-12-11 11:39 | disposition home or self-care (01) ==
LOC: M ED 02:58
DX: F41.9 Anxiety disorder, unspecified (principal); R42 Dizziness and giddiness; E86.0 Dehydration; E11.9 Type 2 diabetes mellitus without complications; E78.5 Hyperlipidemia, unspecified; Z87.442 Personal history of urinary calculi; J45.909 Unspecified asthma, uncomplicated; R56.9 Unspecified convulsions; R51.9 Headache, unspecified; K58.9 Irritable bowel syndrome, unspecified; B19.20 Unspecified viral hepatitis C without hepatic coma; Z88.0 Allergy status to penicillin; Z88.1 Allergy status to other antibiotic agents; Z88.2 Allergy status to sulfonamides; Z88.6 Allergy status to analgesic agent; Z91.040 Latex allergy status; Z88.8 Allergy status to other drugs, medicaments and biological substances; Z91.018 Allergy to other foods; Z79.899 Other long term (current) drug therapy; Z79.890 Hormone replacement therapy; Z79.84 Long term (current) use of oral hypoglycemic drugs

== ENCOUNTER 2022-12-31 12:57 | Emergency (ER) | payer OTHER ==
[2022-12-31 14:46] LABS: HEMATOCRIT 49.3 % (42.0-52.0); HEMOGLOBIN 16.4 g/dl (13.5-17.5); MEAN CORPUSCULAR HEMOGLOBIN 29.4 pg (27.0-33.0); MEAN CORPUSCULAR HGB CONC 33.3 g/dl (32.0-36.5); MEAN CORPUSCULAR VOLUME 88.4 fl (80.0-96.0); PLATELET COUNT, AUTOMATED 238 10^3/uL (150-450); RED BLOOD COUNT 5.58 10^6/uL (4.30-6.10); WHITE BLOOD COUNT 8.5 10^3/uL (4.0-10.0)
[2022-12-31 14:59] LABS: AMPHETAMINES LEVEL URINE NEGATIVE (NEGATIVE); BARBITURATES URINE NEGATIVE (NEGATIVE); BENZODIAZEPINES URINE NEGATIVE (NEGATIVE); CANNABINOIDS URINE NEGATIVE (NEGATIVE); COCAINE METABOLITE URINE NEGATIVE (NEGATIVE); METHADONE URINE NEGATIVE (NEGATIVE); OPIATES URINE NEGATIVE (NEGATIVE); PHENCYCLIDINE URINE NEGATIVE (NEGATIVE)
[2022-12-31 15:10] LABS: ETHYL ALCOHOL (ETHANOL) 0.003 % (0.000-0.010)
[2022-12-31 15:11] LABS: ACETAMINOPHEN LEVEL < 2.0 UG/ML (10.0-20.0)
[2022-12-31 15:12] LABS: ALKALINE PHOSPHATASE 66 U/L (46-116); ALT/SGPT 22 U/L (7.0-40); AST/SGOT 15 U/L (<34); BILIRUBIN,DIRECT 0.1 MG/DL (<0.4); BILIRUBIN,TOTAL 0.4 MG/DL (0.3-1.2); BLOOD UREA NITROGEN 16 MG/DL (9-23); CALCIUM LEVEL 9.4 MG/DL (8.5-10.1); CARBON DIOXIDE LEVEL 29 MMOL/L (20-31); CHLORIDE LEVEL 105 MMOL/L (98-107); CREATININE FOR GFR 0.95 MG/DL (0.70-1.30); GLOMERULAR FILTRATION RATE > 60.0 (>60); GLUCOSE, FASTING 88 MG/DL (60-100); POTASSIUM SERUM 4.3 MMOL/L (3.5-5.1); SALICYLATE LEVEL < 3.0 MG/DL (<30); SODIUM LEVEL 139 MMOL/L (136-145); TOTAL PROTEIN 6.9 G/DL (5.7-8.2)
[2022-12-31 15:17] LABS: THYROID STIMULATING HORMONE 3.819 uIU/ML (0.55-4.78)
[2022-12-31] MEDS ORDERED: hydrOXYzine 50 MG TAB PO ONE (15:35)
[2022-12-31 18:25] VITALS: BP 160/82
== END 2022-12-31 19:16 | disposition home or self-care (01) ==
LOC: M ED 12:57
DX: F41.9 Anxiety disorder, unspecified (principal); B19.20 Unspecified viral hepatitis C without hepatic coma; F42.9 Obsessive-compulsive disorder, unspecified; K21.9 Gastro-esophageal reflux disease without esophagitis; F43.10 Post-traumatic stress disorder, unspecified; Z86.14 Personal history of Methicillin resistant Staphylococcus aureus infection; Z87.820 Personal history of traumatic brain injury; F17.200 Nicotine dependence, unspecified, uncomplicated; Z88.0 Allergy status to penicillin; Z88.2 Allergy status to sulfonamides; Z88.1 Allergy status to other antibiotic agents; Z88.6 Allergy status to analgesic agent; Z91.040 Latex allergy status; Z91.018 Allergy to other foods; Z88.8 Allergy status to other drugs, medicaments and biological substances

== ENCOUNTER 2023-04-13 22:00 | Emergency (ER) | payer OTHER ==
[~2023-04-13] VITALS: Ht 172.7 cm; Wt 109.1 kg
[2023-04-13 22:14] VITALS: TEMP 98.6
[2023-04-13 22:42] LABS: HEMATOCRIT 53.2 % (42.0-52.0); HEMOGLOBIN 17.8 g/dl (13.5-17.5); MEAN CORPUSCULAR HEMOGLOBIN 28.8 pg (27.0-33.0); MEAN CORPUSCULAR HGB CONC 33.5 g/dl (32.0-36.5); MEAN CORPUSCULAR VOLUME 86.1 fl (80.0-96.0); PLATELET COUNT, AUTOMATED 250 10^3/uL (150-450); RED BLOOD COUNT 6.18 10^6/uL (4.30-6.10); WHITE BLOOD COUNT 8.3 10^3/uL (4.0-10.0)
[2023-04-13 22:59] LABS: AMPHETAMINES LEVEL URINE NEGATIVE (NEGATIVE); BARBITURATES URINE NEGATIVE (NEGATIVE); BENZODIAZEPINES URINE NEGATIVE (NEGATIVE); CANNABINOIDS URINE NEGATIVE (NEGATIVE); COCAINE METABOLITE URINE NEGATIVE (NEGATIVE); METHADONE URINE NEGATIVE (NEGATIVE); OPIATES URINE NEGATIVE (NEGATIVE); PHENCYCLIDINE URINE NEGATIVE (NEGATIVE)
[2023-04-13 23:01] LABS: ETHYL ALCOHOL (ETHANOL) 0.199 % (0.000-0.010)
[2023-04-13 23:02] LABS: ACETAMINOPHEN LEVEL < 2.0 UG/ML (10.0-20.0); SALICYLATE LEVEL < 3.0 MG/DL (<30)
[2023-04-13 23:03] LABS: ALBUMIN 4.4 G/DL (3.2-5.2); ALKALINE PHOSPHATASE 85 U/L (46-116); ALT/SGPT 20 U/L (7.0-40); AST/SGOT 17 U/L (<34); BILIRUBIN,DIRECT 0.1 MG/DL (<0.4); BILIRUBIN,TOTAL 0.5 MG/DL (0.3-1.2); BLOOD UREA NITROGEN 11 MG/DL (9-23); CALCIUM LEVEL 9.5 MG/DL (8.5-10.1); CARBON DIOXIDE LEVEL 26 MMOL/L (20-31); CHLORIDE LEVEL 101 MMOL/L (98-107); CREATININE FOR GFR 0.87 MG/DL (0.70-1.30); GLOMERULAR FILTRATION RATE > 60.0 (>60); GLUCOSE, FASTING 115 MG/DL (60-100); POTASSIUM SERUM 3.6 MMOL/L (3.5-5.1); SODIUM LEVEL 137 MMOL/L (136-145); TOTAL PROTEIN 7.9 G/DL (5.7-8.2)
[2023-04-13 23:05] LABS: THYROID STIMULATING HORMONE 3.918 uIU/ML (0.55-4.78)
[2023-04-14] MEDS ORDERED: MAALOX 30 ML SUSP *UDC PO ONE (03:45)
[2023-04-14] MEDS ORDERED: clonazePAM 1 MG TAB PO ONE (05:40)
[2023-04-14 05:51] VITALS: O2SAT 96
[2023-04-14 05:56] VITALS: BP 138/86
== END 2023-04-14 07:38 | disposition home or self-care (01) ==
LOC: M ED 22:00
DX: F10.129 Alcohol abuse with intoxication, unspecified (principal); B19.20 Unspecified viral hepatitis C without hepatic coma; K58.9 Irritable bowel syndrome, unspecified; K21.9 Gastro-esophageal reflux disease without esophagitis; F41.9 Anxiety disorder, unspecified; F43.10 Post-traumatic stress disorder, unspecified; M54.9 Dorsalgia, unspecified; Z87.820 Personal history of traumatic brain injury; Z91.018 Allergy to other foods; Z88.0 Allergy status to penicillin; Z88.2 Allergy status to sulfonamides; Z91.040 Latex allergy status; Z88.6 Allergy status to analgesic agent; Z79.899 Other long term (current) drug therapy; Z79.4 Long term (current) use of insulin; Z79.52 Long term (current) use of systemic steroids; Z79.84 Long term (current) use of oral hypoglycemic drugs

== ENCOUNTER 2023-06-09 17:48 | Emergency (ER) | payer OTHER ==
[~2023-06-09] VITALS: Ht 172.7 cm; Wt 101.9 kg
[2023-06-09 17:48] VITALS: BP 119/75; TEMP 98.5; O2SAT 96
[~2023-06-09 17:48] MED LIST changes: -GABA-283 PO; +GABA-284 PO
[2023-06-09 19:23] LABS: RSV AMPLIFICATION NEGATIVE (NEGATIVE)
== END 2023-06-09 19:33 | disposition left against medical advice (07) ==
LOC: M ED 17:48
DX: Z53.21 Procedure and treatment not carried out due to patient leaving prior to being seen by health care provider (principal)

== ENCOUNTER 2023-09-02 01:14 | Emergency (ER) | payer OTHER ==
[~2023-09-02] VITALS: Ht 172.7 cm; Wt 101.2 kg
[2023-09-02] MEDS ORDERED: MORPHINE 4 MG/ML 1ML VIAL IV ONE (03:35)
[2023-09-02 04:08] LABS: HEMATOCRIT 47.8 % (42.0-52.0); HEMOGLOBIN 16.2 g/dl (13.5-17.5); MEAN CORPUSCULAR HEMOGLOBIN 28.5 pg (27.0-33.0); MEAN CORPUSCULAR HGB CONC 33.9 g/dl (32.0-36.5); PLATELET COUNT, AUTOMATED 282 10^3/uL (150-450); RED BLOOD COUNT 5.69 10^6/uL (4.30-6.10); WHITE BLOOD COUNT 9.3 10^3/uL (4.0-10.0)
[2023-09-02 04:39] VITALS: TEMP 97.5
[2023-09-02 04:41] LABS: BLOOD UREA NITROGEN 21 MG/DL (9-23); CALCIUM LEVEL 9.2 MG/DL (8.5-10.1); CARBON DIOXIDE LEVEL 25 MMOL/L (20-31); CHLORIDE LEVEL 104 MMOL/L (98-107); CREATININE FOR GFR 1.05 MG/DL (0.70-1.30); GLOMERULAR FILTRATION RATE > 60.0 (>60); GLUCOSE, FASTING 98 MG/DL (60-100); POTASSIUM SERUM 4.8 MMOL/L (3.5-5.1); SODIUM LEVEL 139 MMOL/L (136-145)
[2023-09-02 04:50] LABS: ATYPICAL LYMPH 3 % (0-5); BASOPHILS 2 % (0-1); EOSINOPHILS 9 % (0-3); LYMPHOCYTES 22 % (16-44); MONOCYTES 11 % (0-5); NEUTROPHILS 52 % (28-66); PLATELET ESTIMATE NORMAL (NORMAL)
[2023-09-02 04:51] LABS: ANISOCYTOSIS 1+; POLYCHROMASIA 1+
[2023-09-02 06:33] VITALS: BP 115/75; O2SAT 97
== END 2023-09-02 06:33 | disposition home or self-care (01) ==
LOC: M ED 01:14
DX: M54.50 Low back pain, unspecified (principal); E11.9 Type 2 diabetes mellitus without complications; M54.30 Sciatica, unspecified side; Z87.820 Personal history of traumatic brain injury; F41.9 Anxiety disorder, unspecified; F43.10 Post-traumatic stress disorder, unspecified; F42.9 Obsessive-compulsive disorder, unspecified; F17.200 Nicotine dependence, unspecified, uncomplicated; Z79.4 Long term (current) use of insulin; Z79.899 Other long term (current) drug therapy; Z88.0 Allergy status to penicillin; Z88.2 Allergy status to sulfonamides; Z88.1 Allergy status to other antibiotic agents; Z88.8 Allergy status to other drugs, medicaments and biological substances; Z91.018 Allergy to other foods; Z91.040 Latex allergy status

== ENCOUNTER → 2024-04-13 | Outpatient (REF) | payer OTHER ==
[~2024-04-13] MED LIST changes: -EFFE37.5 PO; +EFFE37.52 PO; -KLON0.5T PO; +KLON0.5T8 PO; +KLON1TAB13 PO; -MIRT-60 PO; +MIRT-89 PO
[2024-04-13 16:11] LABS: HEMOGLOBIN A1c 5.7 % (4.0-6.0)
[2024-04-13 16:18] LABS: ALBUMIN 4.5 G/DL (3.2-5.2); ALKALINE PHOSPHATASE 76 U/L (46-116); ALT/SGPT 20 U/L (7.0-40); AST/SGOT 8 U/L (<34); BILIRUBIN,TOTAL 0.4 MG/DL (0.3-1.2); BLOOD UREA NITROGEN 22 MG/DL (9-23); CALCIUM LEVEL 10.5 MG/DL (8.5-10.1); CARBON DIOXIDE LEVEL 28 MMOL/L (20-31); CHLORIDE LEVEL 103 MMOL/L (98-107); CHOLESTEROL LEVEL 195 MG/DL (<200); CHOLESTEROL RISK RATIO 5.82 (<5); CREATININE FOR GFR 0.92 MG/DL (0.70-1.30); GLOMERULAR FILTRATION RATE > 60.0 (>60); GLUCOSE, FASTING 80 MG/DL (60-100); HDL CHOLESTEROL 33.5 MG/DL (>40); LDL CHOLESTEROL 104.9 MG/DL (<100); NON-HDL-C 161.5 MG/DL; POTASSIUM SERUM 4.9 MMOL/L (3.5-5.1); SODIUM LEVEL 136 MMOL/L (136-145); THYROID STIMULATING HORMONE 1.994 uIU/ML (0.55-4.78); TOTAL PROTEIN 7.3 G/DL (5.7-8.2); TRIGLYCERIDES LEVEL 283 MG/DL (<150)
== END ==
LOC: M LAB REF 13:15
PROVIDERS: ATTEND Family Medicine Addiction Medicine
DX: E11.9 Type 2 diabetes mellitus without complications (principal)

== ENCOUNTER 2024-09-07 02:52 | Emergency (ER) | payer OTHER ==
[~2024-09-07] VITALS: Ht 170.2 cm; Wt 106.6 kg
[~2024-09-07 02:52] MED LIST changes: -GEOD40CA13 PO; +SENN-187; -SENN-83; +ZIPR40CA27 PO; -ZIPR80CA12 PO; +ZIPR80CA31 PO
[2024-09-07] MEDS ORDERED: AZIT-12 PO (04:45)
[2024-09-07] MEDS ORDERED: MAGICMW SSP (04:46)
[2024-09-07] MEDS: AZITHROMYCIN 250MG TABLET PO ONE (04:56)
[2024-09-07] MEDS: LIDOCAINE VISCOUS 2% SOLN 15ML UDC SS ONE (04:57)
[2024-09-07 05:16] VITALS: BP 148/77; TEMP 97.6; O2SAT 98
== END 2024-09-07 05:18 | disposition home or self-care (01) ==
LOC: M ED 02:52
DX: J02.0 Streptococcal pharyngitis (principal); F17.210 Nicotine dependence, cigarettes, uncomplicated; F10.10 Alcohol abuse, uncomplicated; Z88.0 Allergy status to penicillin; Z88.1 Allergy status to other antibiotic agents; Z88.2 Allergy status to sulfonamides; Z88.8 Allergy status to other drugs, medicaments and biological substances; Z91.040 Latex allergy status; Z91.018 Allergy to other foods; Z79.2 Long term (current) use of antibiotics; Z79.1 Long term (current) use of non-steroidal anti-inflammatories (NSAID); Z79.84 Long term (current) use of oral hypoglycemic drugs; Z79.899 Other long term (current) drug therapy

== ENCOUNTER 2024-09-19 04:06 | Emergency (ER) | payer OTHER ==
[~2024-09-19] VITALS: Ht 170.2 cm; Wt 108.1 kg
[~2024-09-19 04:06] MED LIST changes: +AZIT-12 PO; +MAGICMW SSP
[2024-09-19] MEDS ORDERED: BENZ200C70 PO (07:03)
[2024-09-19] MEDS ORDERED: ALBU8.5H INH (07:03)
[2024-09-19] MEDS ORDERED: CEFD1CAP9 PO (07:03)
[2024-09-19] MEDS: CEFDINIR 300 MG CAP (OMNICEF) PO ONE (07:13)
[2024-09-19] MEDS: BENZONATATE 100MG CAPSULE PO ONE (07:13)
[2024-09-19 07:15] VITALS: BP 126/85; TEMP 97.5; O2SAT 94
== END 2024-09-19 07:21 | disposition home or self-care (01) ==
LOC: M ED 04:06
DX: J02.0 Streptococcal pharyngitis (principal); K21.9 Gastro-esophageal reflux disease without esophagitis; E78.5 Hyperlipidemia, unspecified; G40.909 Epilepsy, unspecified, not intractable, without status epilepticus; Z88.0 Allergy status to penicillin; Z88.1 Allergy status to other antibiotic agents; Z88.2 Allergy status to sulfonamides; Z91.040 Latex allergy status; Z91.018 Allergy to other foods; Z79.51 Long term (current) use of inhaled steroids; Z79.1 Long term (current) use of non-steroidal anti-inflammatories (NSAID); Z79.2 Long term (current) use of antibiotics; Z79.84 Long term (current) use of oral hypoglycemic drugs; Z79.899 Other long term (current) drug therapy

== ENCOUNTER 2024-10-20 17:21 | Emergency (ER) | payer OTHER ==
[~2024-10-20] VITALS: Ht 170.2 cm; Wt 107.7 kg
[~2024-10-20 17:21] MED LIST changes: +ALBU8.5H INH; +CEFD1CAP9 PO
[2024-10-20] MEDS: ACETAMINOPHEN 500 MG TAB PO ONE (17:55)
[2024-10-20 18:20] LABS: HEMATOCRIT 45.8 % (42.0-52.0); HEMOGLOBIN 16.1 g/dl (13.5-17.5); MEAN CORPUSCULAR HEMOGLOBIN 31.3 pg (27.0-33.0); MEAN CORPUSCULAR HGB CONC 35.2 g/dl (32.0-36.5); MEAN CORPUSCULAR VOLUME 88.9 fl (80.0-96.0); PLATELET COUNT, AUTOMATED 178 10^3/uL (150-450); RED BLOOD COUNT 5.15 10^6/uL (4.30-6.10); WHITE BLOOD COUNT 15.9 10^3/uL (4.0-10.0)
[2024-10-20 18:38] LABS: KETONE, URINE AUTO RFX NEGATIVE (NEGATIVE); LEUKOCYTE ESTERASE UR AUTO RFX NEGATIVE (NEGATIVE); MUCUS, URINE RFX SMALL (NEGATIVE); NITRITE, URINE AUTO RFX NEGATIVE (NEGATIVE); RBC, URINE AUTO RFX 2 /HPF (0-3); SQUAM EPITHELIAL CELL UR AURFX 0 /HPF (0-6); WBC, URINE AUTO RFX 0 /HPF (0-3)
[2024-10-20 18:46] LABS: BLOOD UREA NITROGEN 12 MG/DL (9-23); CALCIUM LEVEL 9.4 MG/DL (8.5-10.1); CARBON DIOXIDE LEVEL 26 MMOL/L (20-31); CHLORIDE LEVEL 101 MMOL/L (98-107); GLOMERULAR FILTRATION RATE > 60.0 (>60); GLUCOSE, FASTING 209 MG/DL (60-100); POTASSIUM SERUM 3.8 MMOL/L (3.5-5.1); SODIUM LEVEL 134 MMOL/L (136-145)
[2024-10-20] MEDS: CLINDAMYCIN 150MG CAPSULE PO ONE (21:24)
[2024-10-20 21:26] VITALS: BP 145/97; TEMP 99.5; O2SAT 96
== END 2024-10-20 21:27 | disposition home or self-care (01) ==
LOC: M ED 17:21
DX: J02.0 Streptococcal pharyngitis (principal); K21.9 Gastro-esophageal reflux disease without esophagitis; E78.5 Hyperlipidemia, unspecified; Z88.0 Allergy status to penicillin; Z88.2 Allergy status to sulfonamides; Z88.1 Allergy status to other antibiotic agents; Z88.8 Allergy status to other drugs, medicaments and biological substances; Z91.040 Latex allergy status; Z91.018 Allergy to other foods; Z79.51 Long term (current) use of inhaled steroids; Z79.2 Long term (current) use of antibiotics; Z79.84 Long term (current) use of oral hypoglycemic drugs; Z79.899 Other long term (current) drug therapy

== ENCOUNTER → 2024-11-25 | Outpatient (REF) | payer OTHER | LOC: M LAB REF 17:21 | PROVIDERS: ATTEND Physician Assistant Medical | DX: H60.63 Unspecified chronic otitis externa, bilateral (principal) ==

== ENCOUNTER → 2024-12-01 | Outpatient (CLI) | payer OTHER ==
[2024-12-01 10:56] LABS: BASO # 0.1 10^3/uL (0.0-0.2); BASO % 0.8 % (0.0-1.0); EOS # 0.7 10^3/uL (0.0-0.5); EOS % 6.5 % (0.0-3.0); HEMATOCRIT 44.5 % (42.0-52.0); HEMOGLOBIN 15.3 g/dl (13.5-17.5); LYMPH # 1.5 10^3/uL (1.5-5.0); LYMPH % 13.7 % (24.0-44.0); MEAN CORPUSCULAR HEMOGLOBIN 30.9 pg (27.0-33.0); MEAN CORPUSCULAR HGB CONC 34.4 g/dl (32.0-36.5); MEAN CORPUSCULAR VOLUME 89.9 fl (80.0-96.0); MONO # 0.9 10^3/uL (0.0-0.8); MONO % 8.1 % (2.0-8.0); NEUTROPHILS # 7.4 10^3/uL (1.5-8.5); NEUTROPHILS % 69.9 % (36.0-66.0); PLATELET COUNT, AUTOMATED 204 10^3/uL (150-450); RED BLOOD COUNT 4.95 10^6/uL (4.30-6.10); WHITE BLOOD COUNT 10.6 10^3/uL (4.0-10.0)
[2024-12-01 11:25] LABS: THYROID STIMULATING HORMONE 2.928 uIU/ML (0.55-4.78)
[2024-12-01 11:26] LABS: ALBUMIN 3.8 G/DL (3.2-5.2); ALKALINE PHOSPHATASE 76 U/L (40-129); ALT/SGPT 23 U/L (7.0-40); AST/SGOT 15 U/L (<34); BILIRUBIN,TOTAL 0.4 MG/DL (0.3-1.2); BLOOD UREA NITROGEN 16 MG/DL (9-23); CALCIUM LEVEL 9.5 MG/DL (8.5-10.1); CARBON DIOXIDE LEVEL 26 MMOL/L (20-31); CHLORIDE LEVEL 106 MMOL/L (98-107); CHOLESTEROL LEVEL 155 MG/DL (<200); CHOLESTEROL RISK RATIO 4.72 (<5); CREATININE FOR GFR 0.75 MG/DL (0.70-1.30); GLOMERULAR FILTRATION RATE > 60.0 (>60); GLUCOSE, FASTING 96 MG/DL (60-100); HDL CHOLESTEROL 32.8 MG/DL (>40); NON-HDL-C 122.2 MG/DL; POTASSIUM SERUM 4.1 MMOL/L (3.5-5.1); SODIUM LEVEL 141 MMOL/L (136-145); TOTAL PROTEIN 7.1 G/DL (5.7-8.2); TRIGLYCERIDES LEVEL 440 MG/DL (<150)
[2024-12-01 11:28] LABS: FREE T4 1.09 NG/DL (0.89-1.76)
[2024-12-01 11:56] LABS: HEMOGLOBIN A1c 6.6 % (4.0-6.0)
== END ==
LOC: M RAD 09:26
PROVIDERS: ATTEND Nurse Practitioner Adult Health
DX: Z00.8 Encounter for other general examination (principal); K21.9 Gastro-esophageal reflux disease without esophagitis; E03.9 Hypothyroidism, unspecified; E78.5 Hyperlipidemia, unspecified; E55.9 Vitamin D deficiency, unspecified; Z79.899 Other long term (current) drug therapy; M54.6 Pain in thoracic spine; M54.2 Cervicalgia; M54.16 Radiculopathy, lumbar region

== ENCOUNTER → 2025-01-21 | Outpatient (CLI) | payer OTHER ==
[2025-01-21 10:31] LABS: BLOOD UREA NITROGEN 13 MG/DL (9-23); CREATININE FOR GFR 0.79 MG/DL (0.70-1.30); GLOMERULAR FILTRATION RATE > 90.0 (>60)
== END ==
LOC: M LAB 09:35
PROVIDERS: ATTEND Physician Assistant Medical
DX: R49.0 Dysphonia (principal)

== ENCOUNTER → 2025-01-26 | Outpatient (CLI) | payer OTHER ==
[~2025-01-26] MED LIST changes: +ISOVUE-370 76% 100ML VIAL As Ordered ONE
== END ==
LOC: M RAD 15:23
PROVIDERS: ATTEND Physician Assistant Medical
DX: R22.1 Localized swelling, mass and lump, neck (principal)
CPT/HCPCS: 70491; Q9967

== ENCOUNTER → 2025-07-15 | Outpatient (REF) | payer OTHER ==
[~2025-07-15] MED LIST changes: -AMBI10TA PO; -AMBI5TAB PO; +AMMO12CR4 EX; -AMMO12CR7 EX; +CIPRHCOTIC OTIC; -CLON1TAB8; +FARX1TAB3 PO; -IBUP-1022 PO; +IBUP600T42 PO; +INVE9TAB PO; -ISOVUE-370 76% 100ML VIAL As Ordered ONE; +ZOLP-532 PO; +ZOLP-533 PO
== END ==
LOC: M LAB REF 12:45 → EEVIPCON 12:45
PROVIDERS: ATTEND Student in an Organized Health Care Education/Training Program
DX: H92.13 Otorrhea, bilateral (principal)